=== PATIENT | female | born 1965 | race Caucasian/White ===

== ENCOUNTER → 2025-01-28 04:00 | Outpatient (REF) | payer MEDICARE, MEDICAID, SELFPAY ==
--- OUTSIDE RECORDS SUMMARY | 2025-01-28 04:12 | XMS RPT_ITS | CCD ---
Author Organization [facility] Care Team Providers Care Enterprise Systems Engineer Name Role Phone Tom Morocho Attending Unavailable Tom Morocho Attending Unavailable Encounters Encounter Date Encounter Type Care Provider Facility Start: 01-21-2025 ambulatory Tom REDDY Facil ity:[facility] Start: 01-17-2025 ambulatory Tom Johnstonhner BARRY Facil ity:[facility] Payers Date Payer Category Payer Self-pay Summary Purpose Family History No Family History Records Found Advance Directives No Advanced Directives Records Found Additional Source Comments INFORMATION SOURCE (unrecogn ized section and content) DATE CREATED AUTHOR 01/21/2025 [facility] FOR RECORDS PERTAINING TO PATIENTS WHO ARE OR HAVE BEEN ENROLLED IN A CHEMICAL DEPENDENCY/SUBSTANCEABUSE PROGRAM, SOME INFORMATION MAY BE OMITTED. This clinical summary was aggregated from multiple sources. Caution should be exercised in using it in the provision of clinical care. This summary normalizes information from multiple sources, and as a consequence, information in this document may materially change the coding, format and clinical context of patient data. In addition, data may be omitted in some cases. CLINICAL DECISIONS SHOULD BE BASED ON THE PRIMARY CLINICAL RECORDS. [facility] [employer] [facility]. provides no warranty or guarantee of the accuracy or completeness of information in this document.
[2025-01-28 10:38] LABS: Anion Gap 12 (5-15); BUN 25 mg/dL (4-19); BUN/Creat Ratio 9.9 RATIO (10-20); Calcium,Total 8.8 mg/dL (7.6-11.0); Carbon Dioxide 21.5 mmol/L (21.0-32.0); Chloride 91 mmol/L (98-108); Creatinine, Serum 2.53 mg/dL (0.70-1.20); EST Glomerular Filtration Rate 22 (>60); Glucose 92 mg/dL (70-99); Potassium 3.7 mmol/L (3.3-5.1); Sodium Level 125 mmol/L (133-145)
== END ==
LOC: OLS.ACW100 04:00
PROVIDERS: Referring Provider Family Medicine; Visit Provider Family Medicine
DX: S92.901D Unspecified fracture of right foot, subsequent encounter for fracture with routine healing (principal); E87.70 Fluid overload, unspecified; R29.6 Repeated falls; S62.92XD Unspecified fracture of left hand, subsequent encounter for fracture with routine healing
CPT/HCPCS: 36415; 80048

== ENCOUNTER → 2025-02-04 04:00 | Outpatient (REF) | payer MEDICARE, MEDICAID, SELFPAY ==
--- OUTSIDE RECORDS SUMMARY | 2025-02-04 04:27 | XMS RPT_ITS | CCD ---
Author Organization [facility] Care Team Providers Care Outside Sales Engineer Name Role Phone Tom Morocho Attending Unavailable Tom Morocho Attending Unavailable Tom Morocho Attending Unavailable Encounters Encounter Date Encounter Type Care Provider Facility Start: 01-28-2025 ambulatory Tom REDDY Facil ity:[facility] Start: 01-21-2025 ambulatory Tom REDDY Facil ity:[facility] Start: 01-17-2025 ambulatory Tom REDDY Facil ity:[facility] Payers Date Payer Category Payer Self-pay Summary Purpose Family History No Family History Records Found Advance Directives No Advanced Directives Records Found Additional Source Comments INFORMATION SOURCE (unrecogn ized section and content) DATE CREATED AUTHOR 01/29/2025 [facility] FOR RECORDS PERTAINING TO PATIENTS WHO [...] BE BASED ON THE PRIMARY CLINICAL RECORDS. [employer] provides no warranty or guarantee of the accuracy or completeness of information in this document.
[2025-02-04 09:04] LABS: Anion Gap 11 (5-15); BUN 24 mg/dL (4-19); BUN/Creat Ratio 9.8 RATIO (10-20); Calcium,Total 8.4 mg/dL (7.6-11.0); Carbon Dioxide 24.4 mmol/L (21.0-32.0); Chloride 89 mmol/L (98-108); Creatinine, Serum 2.41 mg/dL (0.70-1.20); EST Glomerular Filtration Rate 23 (>60); Glucose 90 mg/dL (70-99); Potassium 3.7 mmol/L (3.3-5.1); Sodium Level 124 mmol/L (133-145)
== END ==
LOC: OLS.ACW100 04:00
PROVIDERS: Referring Provider Family Medicine; Visit Provider Family Medicine
DX: S92.901D Unspecified fracture of right foot, subsequent encounter for fracture with routine healing (principal); S62.92XD Unspecified fracture of left hand, subsequent encounter for fracture with routine healing; E87.70 Fluid overload, unspecified; R29.6 Repeated falls
CPT/HCPCS: 36415; 80048

== ENCOUNTER → 2025-02-08 05:00 | Outpatient (REF) | payer MEDICARE, MEDICAID, SELFPAY ==
--- OUTSIDE RECORDS SUMMARY | 2025-02-08 03:58 | XMS RPT_ITS | CCD ---
Author Organization [facility] Care Team Providers Care Ladle Repairman Name Role Phone Tom Morocho Attending Unavailable Tom Morocho Attending Unavailable Tom Morocho Attending Unavailable Carlota REDDY, Tom Attending Unavailable Encounters Encounter Date Encounter Type Care Provider Facility Start: 02-04-2025 ambulatory Tom REDDY Facil ity:[facility] Start: 01-28-2025 ambulatory Tom REDDY Facil ity:[facility] Start: 01-21-2025 ambulatory Tom REDDY Facil ity:[facility] Start: 01-17-2025 ambulatory Tom REDDY Facil ity:[facility] Payers Date Payer Category Payer Self-pay Summary Purpose Family History No Family History Records Found Advance Directives No Advanced Directives Records Found Additional Source Comments INFORMATION SOURCE (unrecogn ized section and content) DATE CREATED AUTHOR 02/06/2025 [facility] FOR RECORDS PERTAINING TO PATIENTS WHO ARE [...] BE BASED ON THE PRIMARY CLINICAL RECORDS. [facility] [employer] provides no warranty or guarantee of the accuracy or completeness of information in this document.
== END ==
LOC: OLS.ACW100 05:00
PROVIDERS: Visit Provider Family Medicine
DX: S92.901D Unspecified fracture of right foot, subsequent encounter for fracture with routine healing (principal); E87.70 Fluid overload, unspecified; R29.6 Repeated falls; S62.92XD Unspecified fracture of left hand, subsequent encounter for fracture with routine healing
CPT/HCPCS: 36415; 84443

== ENCOUNTER → 2025-02-11 | Outpatient (REF) | payer MEDICARE, MEDICAID, SELFPAY ==
--- OUTSIDE RECORDS SUMMARY | 2025-02-11 04:26 | XMS RPT_ITS | CCD ---
Author Organization [facility] Care Team Providers Care Wash Oil Pump Operator Name Role Phone Tom Morocho Attending Unavailable Carlota REDDY, Tom Attending Unavailable Carlota REDDY, Tom Attending Unavailable Carlota REDDY, Tom Attending Unavailable Carlota REDDY, Tom Attending Unavailable Encounters Encounter Date Encounter Type Care Provider Facility Start: 02-08-2025 ambulatory Tom REDDY Facil ity:[facility] Start: 02-04-2025 ambulatory Tom REDDY Facil ity:[facility] Start: 01-28-2025 ambulatory Tom Van OLS Facil ity:[facility] Start: 01-21-2025 ambulatory Tom Van OLS Facil ity:[facility] Start: 01-17-2025 ambulatory Tom Van OLS Facil ity:[facility] Payers Date Payer Category Payer Self-pay Summary Purpose Family History No Family History Records Found Advance Directives No Advanced Directives Records Found Additional Source Comments INFORMATION SOURCE (unrecogn ized section and content) DATE CREATED AUTHOR 02/09/2025 [facility] FOR RECORDS PERTAINING TO PATIENTS WHO [...] BE BASED ON THE PRIMARY CLINICAL RECORDS. [facility] [employer] [facility]. provides no warranty or guarantee of the accuracy or completeness of information in this document.
[2025-02-11 09:38] LABS: Anion Gap 12 (5-15); BUN 20 mg/dL (4-19); BUN/Creat Ratio 7.5 RATIO (10-20); Calcium,Total 8.8 mg/dL (7.6-11.0); Carbon Dioxide 24.2 mmol/L (21.0-32.0); Chloride 88 mmol/L (98-108); Creatinine, Serum 2.64 mg/dL (0.70-1.20); EST Glomerular Filtration Rate 20 (>60); Glucose 90 mg/dL (70-99); Potassium 3.8 mmol/L (3.3-5.1); Sodium Level 125 mmol/L (133-145)
== END ==
LOC: OLS.ACW100 05:00
PROVIDERS: Visit Provider Family Medicine
DX: S92.901D Unspecified fracture of right foot, subsequent encounter for fracture with routine healing (principal); E87.70 Fluid overload, unspecified; R29.6 Repeated falls; S62.92XD Unspecified fracture of left hand, subsequent encounter for fracture with routine healing
CPT/HCPCS: 36415; 80048

== ENCOUNTER → 2025-02-18 04:00 | Outpatient (REF) | payer MEDICARE, MEDICAID, SELFPAY ==
[2025-02-18 08:50] LABS: Mucous, Urine 0 SEEN /hpf (<or=2+)
[2025-02-18 09:30] LABS: Albumin, Serum 3.5 g/dL (3.5-5.0); Anion Gap 11 (5-15); BUN 24 mg/dL (4-19); BUN/Creat Ratio 9.0 RATIO (10-20); Calcium,Total 8.9 mg/dL (7.6-11.0); Carbon Dioxide 24.1 mmol/L (21.0-32.0); Chloride 95 mmol/L (98-108); Glucose 83 mg/dL (70-99); Potassium 4.0 mmol/L (3.3-5.1)
[2025-02-18 09:39] LABS: Color, Urine Yellow (Yellow); Glucose, Dipstick Normal (Normal); Ketone-Dipstick Negative (Negative); Leukocyte Esterase-Dipstick 500 /ul (Negative); Nitrite-Dipstick Negative (Negative); Occult Blood-Urine 10 /ul (Negative); Protein-Dipstick 30 mg/dl (Negative); Specific Gravity, Urine 1.005 (1.002-1.030); Urine Bilirubin Dipstick Negative (Negative)
[2025-02-18 10:19] LABS: Red Blood Cells-Urine 0-5 SEEN /hpf (0-5); Squamous Epithelial Cells - UA 0-5 SEEN /hpf (5-10); Transitional Epithelial - Ur 0-5 SEEN /hpf (0-5)
[2025-02-18 11:42] LABS: Osmolality, Urine 108 mOsm/KG
[2025-02-18 11:42] LABS: Osmolality, Serum 281 mOsm/KG (275-295)
== END ==
LOC: OLS.ACW100 04:00
PROVIDERS: Referring Provider Family Medicine; Visit Provider Family Medicine
DX: S92.901D Unspecified fracture of right foot, subsequent encounter for fracture with routine healing (principal); E87.70 Fluid overload, unspecified; R29.6 Repeated falls; S62.92XD Unspecified fracture of left hand, subsequent encounter for fracture with routine healing
CPT/HCPCS: 36415; 80069; 81001; 83930; 83935; 87077; 87086; 87088; 87186

== ENCOUNTER → 2025-02-25 05:00 | Outpatient (REF) | payer MEDICARE, MEDICAID, SELFPAY ==
--- OUTSIDE RECORDS SUMMARY | 2025-02-25 04:51 | XMS RPT_ITS | CCD ---
Author Organization [facility] Care Team Providers Care Single Corner Cutter Name Role Phone Tom Morocho Attending Unavailable Carlota OLS, Tom Attending Unavailable Carlota OLS, Tom Attending Unavailable Carlota OLS, Tom Attending Unavailable Carlota OLS, Tom Attending Unavailable Carlota OLS, Tom Attending Unavailable Carlota REDDY, Tom Attending Unavailable Encounters Encounter Date Encounter Type Care Provider Facility Start: 02-18-2025 ambulatory Tom Carlota OLS Facil ity:[facility] Start: 2025 ambulatory Tom Carlota OLS Facil ity:[facility] Start: 02-08-2025 ambulatory Tom Hajier OLS Facil ity:[facility] Start: 02-04-2025 ambulatory Tom Carlota OLS Facil ity:[facility] Start: 01-28-2025 ambulatory Tom Carlota OLS Facil ity:[facility] Start: 01-21-2025 ambulatory Tom Carlota OLS Facil ity:[facility] Start: 01-17-2025 ambulatory Tom Carlota OLS Facil ity:[facility] Payers Date Payer Category Payer Self-pay Summary Purpose Family History No Family History Records Found Advance Directives No Advanced Directives Records Found Additional Source Comments INFORMATION SOURCE (unrecogn ized section and content) DATE CREATED AUTHOR 02/21/2025 [facility] FOR RECORDS PERTAINING TO PATIENTS [...] BE BASED ON THE PRIMARY CLINICAL RECORDS. [facility] [employer] [facility]. provides no warranty or guarantee of the accuracy or completeness of information in this document.
[2025-02-25 09:51] LABS: Anion Gap 12 (5-15); BUN 24 mg/dL (4-19); BUN/Creat Ratio 9.2 RATIO (10-20); Calcium,Total 8.4 mg/dL (7.6-11.0); Carbon Dioxide 19.9 mmol/L (21.0-32.0); Chloride 93 mmol/L (98-108); Glucose 79 mg/dL (70-99); Potassium 4.1 mmol/L (3.3-5.1)
== END ==
LOC: OLS.ACW100 05:00
PROVIDERS: Visit Provider Family Medicine
DX: S92.901D Unspecified fracture of right foot, subsequent encounter for fracture with routine healing (principal); E87.70 Fluid overload, unspecified; R29.6 Repeated falls; S62.92XD Unspecified fracture of left hand, subsequent encounter for fracture with routine healing
CPT/HCPCS: 36415; 80048

== ENCOUNTER → 2025-03-20 05:00 | Outpatient (REF) | payer MEDICARE, MEDICAID, SELFPAY ==
--- OUTSIDE RECORDS SUMMARY | 2025-03-20 04:31 | XMS RPT_ITS | CCD ---
Author Organization [facility] Care Team Providers Care Pot Pusher Name Role Phone LISHNEVSKI, EDITH Referring Unavailable LISHNEVSKI, EDITH Primary Care Unavailable Miquel Bhat Attending Unavailable LISHNEVSKI, EDITH Referring Unavailable LISHNEVSKI, EDITH Primary Care Unavailable NEVILLE DELA CRUZ Attending Unavailable Ivan Chacon Attending Unavailable LISHNEVSKI, EDITH Referring Unavailable LISHNEVSKI, EDITH Primary Care Unavailable Fran Bowers Attending Unavailable LISHNEVSKI, EDITH Referring Unavailable LISHNEVSKI, EDITH Primary Care Unavailable Lishnevski, Edith Primary Care Provider Lishnevski, Edith Primary Care Provider Stan BLANCHARD, Edith Primary Care Provider [phone] Lishnkathleenski, Edith Primary Care Provider Saurabh Esposito MD Unavailable Ewelina Pruett Unavailable Nick Green MD Unavailable [phone] Dario Verduzco MD Unavailable Marquis BLANCHARD, Shania Warren Unavailable [phone] Stan BLANCHARD, Edith Primary Care Provider Lissindyski, Edith Attending Unavailable PROVIDER, UNKNOWN Referring Unavailable Lishnevski, Edith Primary Care Unavailable Lishnevski, Edith Primary Care Unavailable Lishnevski, Edith Attending Unavailable PROVIDER, UNKNOWN Referring Unavailable PROVIDER, UNKNOWN Referring Unavailable PERFECTO HOLLINS Attending Unavailable Lishnevski, Edith Primary Care Unavailable Lishnevski, Edith Attending Unavailable PROVIDER, UNKNOWN Referring Unavailable Lishnevski, Edith Primary Care Unavailable PROVIDER, UNKNOWN Referring Unavailable Fran Bowers Attending Unavailable Lishnevski, Edith Primary Care Unavailable Lishnevski, Edith Primary Care Unavailable SHANIA CHO Attending Unavailable PROVIDER, UNKNOWN Referring Unavailable Lishnevski, Edith Primary Care Unavailable Fran Bowers Attending Unavailable PROVIDER, UNKNOWN Referring Unavailable Lishnevski, Edith Primary Care Unavailable PERFECTO HOLLINS Attending Unavailable PROVIDER, UNKNOWN Referring Unavailable Lishnevski, Edith Primary Care Unavailable Lishnevski, Edith Attending Unavailable PROVIDER, UNKNOWN Referring Unavailable Gisselhnenrique BLANCHARD, Edith Primary Care Provider Stan BLANCHARD, Edith Primary Care Provider Ewelina Pruett Unavailable Nick Green MD Unavailable Dax BLANCHARD, Dario Robbins Unavailable [phone] Shania Cho MD Unavailable [phone] Nick Green MD Unavailable Stan BLANCHARD, Edith Primary Care Provider Stan BLANCHARD, Edith Primary Care Provider Stan BLANCHARD, Edith Primary Care Provider Nick Green MD Unavailable Nick Green MD Unavailable Meño BLANCHARD, Familia Cason Unavailable Katarina De Souza RN Unavailable UnavailMary Boykin Attending Provider UnavailMary Boykin Referring Provider UnavailJAVAD Johnson Attending Unavailable LISHNEVSKI, EDITH Primary Care Unavailable SARAH GUTIERREZ Attending Unavailable FROY MORALES Consulting Unavailab ESTEPHANIA Guthrie Admitting Unavailable LISHNEVSKI, EDITH Primary Care Unavailable LISHNEVSKI, EDITH Primary Care Unavailable LISHNEVSKI, EDITH Attending Unavailable JESS PATTON Attending Unavailable LISHNEVSKI, EDITH Primary Care Unavailable PAT PRASAD Attending Unavailable LISHNEVSKI, EDITH Primary Care Unavailable LISHNEVSKI, EDITH Primary Care Unavailable PATTON, JESS Attending Unavailable LISHNEVSKI, EDITH Primary Care Unavailable DIAMANTE SCHROEDER Attending Unavailable MARIANN BYRNES Admitting Unavailable LISHNEVSKI, EDITH Primary Care Unavailable LISHNEVSKI, EDITH Primary Care Unavailable FRAN BOWERS Attending Unavailable LISHNEVSKI, EDITH Primary Care Unavailable PATTON, JESS Referring Unavailable LISHNEVSKI, EDITH Primary Care Unavailable PATTON, JESS Referring Unavailable LISHNEVSKI, EDITH Primary Care Unavailable SARAH DURAN Referring Unavailable KARTHIK HAYESA Attending Unavailable JUDE CHASE Admitting Unavailable LISHNEVSKI, EDITH Primary Care Unavailable ARSLAN KIRKLAND Attending Unavailable LISHNEVSKI, EDITH Primary Care Unavailable LARRY HAYESRISSHERLEYA Attending Unavailable CLARA WYATT Admitting Unavailable LISHNEVSKI, EDITH Primary Care Unavailable BILL HERBERT Admitting Unavailable BILL HERBERT Attending Unavailable MARY GAMBOA Consulting Unavailable LISHNEVSKI, EDITH Primary Care Unavailable JORGE ROTH Attending Unavailable LISHNEVSKI, EDITH Primary Care Unavailable LISHNEVSKI, EDITH Primary Care Unavailable CARLOTA PHILLIPS Referring Unavailable FAMILIA JERONIMO Attending Unavailable LISHNEVSKI, EDITH Primary Care Unavailable EVA ANDRE Referring Unavailable EAV ANDRE Attending Unavailable ARSLAN KIRKLAND Attending Unavailable LISHNEVSKI, EDITH Primary Care Unavailable Mary Morocho Attending Unavailable Mary Morocho Attending Unavailable Mary Morocho Referring Unavailable Mary Morocho Attending Unavailable Mary Morocho Attending Unavailable Mary Morocho Attending Unavailable Mary Morocho Attending Unavailable Mary Morocho Attending Unavailable Mary Morocho Referring Unavailable Mary Morocho Referring Unavailable Mary Morocho Attending Unavailable Allergies Allergy Classification Reported Allergen(s) Allergy Type Date of Onset Reaction(s) Facility Anticholinergics (2 sources) Benztropine Drug Allergy 03-20-20 [facility] diphenhydrAMINE (2 sources) diphenhydrAMINE Drug Allergy 03-20-20 [facility] (20 sources) Antihistamines, Chlorpheniramine-Ty pe Propensity to adverse reactions to drug 03-20-20 15 [facility], [place] (20 sources) Other Propensity to adverse reactions 03-20-20 15 Other (See Comments) [place], [place] (20 sources) Benztropine Drug Allergy 08-18-19 13 [facility] (20 sources) diphenhydrAMINE Drug Allergy 08-18-19 13 [facility] Work Phone: (20 sources) NSAIDs Propensity to adverse reactions to drug 03-20-20 20 [facility] Work Phone: (10 sources) Chlorpheniramine / Pseudoephedrine Drug Allergy 02-02-20 16 Other: See Comments [facility] (20 sources) venlafaxine Drug Allergy 06-28-20 24 Hives [facility] (13 sources) Propylamine derivative antihistamine Drug Intolerance 03-20-20 15 [facility] NEGATED: Highlighted row has been ruled out!Unclassified (10 sources) Other Propensity to adverse reactions 03-20-20 15 Other (See Comments) [facility] Medications Current Medications Medication Drug Class(es) Dates Sig (Normalized) Sig (Original) albuterol sulfate HFA (PROAIR HFA) 108 (90 Base) MCG/ACT inhaler (1 source) Start: 06-22-2017 take 2 puff(s) by inhalation every six hours as needed for wheezing albuterol sulfate HFA (PROAIR HFA) 108 (90 Base) MCG/ACT inhaler Indications: Lung infiltrate on CT , Cough Inhale 2 puffs into the lungs every 6 hours as needed for Wheezing 1 Inhaler 3 06/22/2017 Active amLODIPine 5 mg oral tablet (20 sources) Dihydropyridine Calcium Channel Tomasa Start: 05-10-2023 End: 08-10-2024 take 1 tablet by mouth once daily amLODIPine (Norvasc) 5 MG tablet take 1 tablet by mouth once daily 30 tablet 03/08/2024 Active Start: 03-24-2023 End: 03-23-2023 amLODIPine (Norvasc) tablet 5 mg Start: 03-24-2023 End: 03-23-2023 amLODIPine (Norvasc) tablet 5 mg Start: 03-23-2023 End: 03-23-2023 amLODIPine (Norvasc) tablet 10 mg Start: 03-22-2023 End: 03-22-2023 amLODIPine (Norvasc) tablet 5 mg Start: 09-01-2021 take 1 tablet by diane th once daily amLODIPine (NORVASC) 5 MG tablet Indications: Hyperkalemia TAKE 1 TABLET BY MOUTH DAILY 90 tablet 0 09/01/2021 Active Start: 12-19-2020 take 1 tablet by diane th once daily amLODIPine (NORVASC) 5 MG tablet Indications: Hyperkalemia TAKE 1 TABLET BY MOUTH DAILY 30 tablet 3 12/19/2020 Active Start: 06-09-2020 take 1 tablet by diane th once daily amLODIPine (NORVASC) 5 MG tablet Indications: Hyperkalemia TAKE 1 TABLET BY MOUTH EVERY DAY 30 tablet 3 06/09/2020 Active Start: 01-31-2020 take 1 tablet by diane th once daily amLODIPine (NORVASC) 5 MG tablet Indications: Hyperkalemia TAKE 1 TABLET BY MOUTH EVERY DAY 30 tablet 3 01/31/2020 Active Start: 11-16-2019 take 1 tablet by diane th once daily in the morning amLODIPine (NORVASC) 5 MG tablet Indications: Hyperkalemia take 1 tablet by mouth every morning 30 tablet 3 11/16/2019 Active Start: 03-26-2019 take 1 tablet by diane th once daily amLODIPine (NORVASC) 5 MG tablet Indications: Hyperkalemia Take 1 tablet by mouth daily 30 tablet 3 03/26/2019 Active aspirin 81 mg delayed release oral tablet (4 sources) Platelet Aggregation Inhibitor, Nonsteroidal Anti-inflammatory Drug take 1 tablet by mouth in the morning aspirin 81 MG EC tablet Take 81 mg by mouth in the morning. 0 Active Calcium Carbonate / Cholecalciferol (17 sources) Vitamin D Start: 10-28-19 take 1 tablet by mouth once, then take 1 tablet by mouth once calcium carbonate-vitam in D (CALTRATE) 600-400 MG-UNIT TABS per tab TAKE (1) TABLET BY MOUTH AT 8AM AND 1 TABLET AT 8PM 60 tablet 11 10/27/2018 Active Start: 01-24-2018 calcium carbon ate 600 mg-cholecalciferol 400 units 600 mg(1,500mg) -400 unit tab TAKE ONE TABLET AT 8AM & 8PM 60 tablet 0 01/24/2018 Active Comment on above: TAKE ONE TABLET AT 8 AM & 8PM clonazePAM 0.5 mg oral tablet (20 sources) Benzodiazepine Start: 01-15-2025 take 0.5 mg by mouth once 0.5 mg, Oral, Once, On 01/15/25 at 0900, For 1 dose Start: 12-29-2024 take 0.5 mg by mouth once 0.5 mg, Oral, Once, On 12/29/24 at 0250, For 1 dose Start: 09-14-2024 End: 03-15-2025 take 1 tablet by mouth twice daily as needed for anxiety clonazePAM (KlonoPIN) 0.5 MG tablet Indications: schizoaffectvie disorder Take 1 tablet (0.5 mg) by mouth 2 times daily as needed for anxiety. 60 tablet 1 09/14/2024 03/15/2025 Discontinued (Stop taking at discharge) Start: 06-18-2024 End: 08-17-2024 take 1 tablet by mouth twice daily as needed for anxiety clonazePAM (KlonoPIN) 0.5 MG tablet Indications: schizoaffectvie disorder Take 1 tablet (0.5 mg) by mouth 2 times daily as needed for anxiety for up to 3 days. 5 tablet 1 08/05/2024 Active Start: 12-16-2023 End: 02-14-2024 clonazePAM (KlonoPIN) 0.5 MG tablet Indications: schizoaffectvie disorder Take 1 tablet (0.5 mg) by mouth 2 times daily as needed for anxiety. Do not start before December 16, 2023. 60 tablet 1 12/16/2023 Active Start: 08-22-2023 End: 10-21-2023 take 1 tablet by mouth twice daily as needed for anxiety clonazePAM (KlonoPIN) 0.5 MG tablet Indications: schizoaffectvie disorder Take 1 tablet (0.5 mg) by mouth 2 times daily as needed for anxiety. 60 tablet 1 08/22/2023 Active Start: 05-06-2023 End: 08-19-2023 take 1 tablet by mouth twice daily as needed for anxiety clonazePAM (KlonoPIN) 0.5 MG tablet Indications: schizoaffectvie disorder Take 1 tablet (0.5 mg) by mouth 2 times daily as needed for anxiety. 60 tablet 1 06/20/2023 08/19/2023 Active Start: 03-20-2023 take 0.5 tablet by m out three times daily as needed for anxiety clonazePAM (KlonoPIN) 0.5 MG tablet Indications: Chronic schizoaffective disorder (HCC) Take 0.5 tablets (0.25 mg) by mouth 3 times daily as needed for anxiety for up to 3 days. 3 tablet 0 03/20/2023 Active Start: 03-17-2023 End: 03-23-2023 clonazePAM (KlonoPIN) tablet 0.25 mg Start: 01-28-2023 End: 04-30-2023 take 1 tablet by mouth twice daily as needed for anxiety clonazePAM (KlonoPIN) 0.5 MG tablet Indications: Bipolar affective disorder, remission status unspecified (HCC) , Panic disorder with agoraphobia Take 1 tablet (0.5 mg) by mouth 2 times daily as needed for anxiety. 60 tablet 1 03/01/2023 03/23/2023 Discontinued (Stop taking at discharge) Start: 11-19-2022 End: 01-18-2023 take 1 tablet by mouth twice daily as needed for anxiety clonazePAM (KlonoPIN) 0.5 MG tablet Indications: Bipolar affective disorder, remission status unspecified (HCC) , Panic disorder with agoraphobia Take 1 tablet (0.5 mg) by mouth 2 times daily as needed for anxiety. 60 tablet 1 11/19/2022 01/18/2023 Active Start: 07-23-2022 take 1 tablet by diane twice daily as needed for anxiety clonazePAM (KlonoPIN) 0.5 MG tablet Indications: Bipolar affective disorder, remission status unspecified (HCC) , Panic disorder with agoraphobia TAKE 1 TABLET BY MOUTH TWICE DAILY NEEDED FOR ANXIETY 60 tablet 1 07/23/2022 Active Start: 04-21-2022 End: 06-20-2022 take 1 tablet by mouth twice daily as needed for anxiety clonazePAM (KLONOPIN) 0.5 MG tablet Indications: Chronic schizoaffective disorder (HCC) , Anxiety TAKE 1 TABLET BY MOUTH TWICE DAILY NEEDED FOR ANXIETY 60 tablet 1 04/21/2022 06/20/2022 Active Start: 02-02-2022 End: 04-03-2022 take 1 tablet by mouth twice daily as needed for anxiety clonazePAM (KLONOPIN) 0.5 MG tablet Indications: Chronic schizoaffective disorder (HCC) , Anxiety TAKE 1 TABLET BY MOUTH TWICE DAILY NEEDED FOR ANXIETY FOR UP TO 60 DAYS 60 tablet 1 02/02/2022 04/03/2022 Active Start: 09-16-2021 End: 11-15-2021 take 1 tablet by mouth twice daily as needed for anxiety clonazePAM (KLONOPIN) 0.5 MG tablet Indications: Chronic schizoaffective disorder (HCC) , Anxiety Take 1 tablet by mouth 2 times daily as needed for Anxiety for up to 60 days. 60 tablet 1 09/16/2021 11/15/2021 Active Start: 02-12-2021 End: 04-13-2021 take 1 tablet by mouth twice daily as needed for anxiety clonazePAM (KLONOPIN) 0.5 MG tablet Indications: Anxiety , Chronic schizoaffective disorder (HCC) Take 1 tablet by mouth 2 times daily as needed for Anxiety for up to 60 days. 60 tablet 1 02/12/2021 04/13/2021 Active Start: 11-27-2020 End: 01-26-2021 take 1 tablet by mouth twice daily as needed for anxiety clonazePAM (KLONOPIN) 0.5 MG tablet Indications: Anxiety , Chronic schizoaffective disorder (HCC) TAKE ONE (1) TABLET BY MOUTH TWICE DAILY NEEDED FOR ANXIETY 60 tablet 1 11/27/2020 01/26/2021 Active Start: 10-12-2019 End: 08-18-2020 take 1 tablet by mouth twice daily as needed for anxiety clonazePAM (KLONOPIN) 0.5 MG tablet Indications: Anxiety , Chronic schizoaffective disorder (HCC) Take 1 tablet by mouth 2 times daily as needed for Anxiety for up to 60 days. 60 tablet 1 06/19/2020 08/18/2020 Active Start: 03-26-2019 End: 09-03-2019 take 1 tablet by mouth twice daily for anxiety clonazePAM (KLONOPIN) 0.5 MG tablet Indications: Anxiety , Chronic schizoaffective disorder (HCC) take 1 tablet by mouth twice a day if needed for anxiety 60 tablet 1 07/05/2019 09/03/2019 Active Comment on above: Take 0.5 mg by mouth twice daily as needed. docusate sodium 50 mg / sennosides, prison 8.6 mg oral tablet (14 sources) Start: 03-10-2025 End: 03-15-2026 take 2 tablets by mouth every twenty-four hours as needed for constipation senna-docusate sodium (Senokot-S) 8.6-50 MG tablet Take 2 tablets by mouth Daily as needed for constipation. 03/15/2025 03/15/2026 Active Start: 01-11-2025 End: 01-25-2025 take 2 tablets by mouth twice daily senna-docusate sodium (Senokot-S) 8.6-50 MG tablet Take 2 tablets by mouth 2 times daily for 10 days. 40 tablet 01/15/2025 01/25/2025 Active Start: 01-02-2025 End: 01-10-2025 take 2 tablets by mouth once daily 2 tablet, Oral, Daily, First dose on Tue01/02/25 at 1300 Start: 08-10-2024 End: 08-10-2024 take 1 tablet by mouth twice daily as needed for constipation 1 tablet, Oral, 2 times daily PRN, constipation, Starting on Tue08/10/24 at 0853 Start: 03-17-2023 End: 03-23-2023 senna-docusate sodium (Senok ot-S) 8.6-50 MG tablet 2 tablet epoetin molly-epbx (Retacrit) 18165 UNIT/ML injection (20 sources) epoetin molly-epb x (Retacrit) 21993 UNIT/ML injection Inject 10,000 Units under the skin. Suspended epoetin molly-epb x (Retacrit) 17418 UNIT/ML injection Inject 10,000 Units under the skin. Active ferrous sulfate 325 mg oral tablet (20 sources) Start: 01-01-2025 End: 02-15-2025 take 1 tablet by mouth once daily at breakfast ferrous sulfate 325 (65 Fe) MG tablet Take 1 tablet (325 mg) by mouth daily (with breakfast). 30 tablet 01/16/2025 02/15/2025 Active Start: 05-18-2019 take 1 tablet by diane th once daily ferrous sulfate 325 (65 Fe) MG EC tablet TAKE 1 TABLET BY MOUTH EVERY DAY AT NOON 30 tablet 11 05/18/2019 Active Start: 10-27-2018 take 1 tablet by diane th once daily ferrous sulfate 325 (65 Fe) MG EC tablet TAKE 1 TABLET BY MOUTH EVERY DAY AT NOON 30 tablet 11 10/27/2018 Active Start: 01-24-2018 ferrous sulfat e 325 mg (65 mg iron) tablet TAKE ONE TABLET AT 12PM 30 tablet 0 01/24/2018 Active Comment on above: TAKE ONE TABLET AT 1 2PM guaiFENesin 20 mg/ml oral solution (6 sources) Start: 03-15-2025 End: 03-25-2025 take 200 mg by mouth every four hours as needed for cough guaiFENesin (Robitussin) 100 MG/5ML liquid Take 10 mL (200 mg) by mouth every 4 hours as needed for cough for up to 10 days. 03/15/2025 03/25/2025 Active Start: 03-14-2025 End: 03-15-2025 take 200 mg by mouth every four hours as needed for cough 200 mg, Oral, Every 4 hours PRN, cough, Starting on Kayli 03/14/25 at 1538 Start: 08-06-2024 End: 08-10-2024 take 200 mg by mouth every four hours as needed for cough 200 mg, Oral, Every 4 hours PRN, cough, Starting on 08/06/24 at 2058 heparin 1 unit/mL (1 source) inject 1 [IU] by subcutaneous injection every twelve hours heparin 1 unit/mL SubQ Q12 hours Active hydroCHLOROthiazide 25 mg / triamterene 37.5 mg oral capsule (16 sources) Potassium-sparin g Diuretic, Thiazide Diuretic Start: 11-15-19 take 1 capsule by mouth twice daily triamterene-hy drochlorothiaz kathy (DYAZIDE) 37.5-25 MG per capsule Take 1 capsule by mouth 2 times daily 60 capsule 0 11/14/2018 Active Start: 11-25-2017 triamterene-hy drochlorothiazide 37.5-25 mg per capsule 0 11/25/2017 Active hydrOXYzine pamoate 25 mg oral capsule (4 sources) Antihistamine Start: 03-07-2025 End: 03-25-2025 take 1 capsule by mouth every six hours as needed for anxiety hydrOXYzine pamoate (Vistaril) 25 MG capsule Take 1 capsule (25 mg) by mouth every 6 hours as needed for anxiety for up to 10 days. 03/15/2025 03/25/2025 Active Incontinence Supply Disposable (Depend Pant Extra Large) misc (20 sources) Start: 06-22-2023 End: 06-21-2024 Incontinence Supply Disposable (Depend Pant Extra Large) misc Indications: Urge incontinence of urine 1 each in the morning and 1 each at noon and 1 each in the evening and 1 each before bedtime. 120 each 11 06/22/2023 06/21/2024 Active Start: 02-23-2023 End: 06-22-2023 Incontinence Supply Disposab le (Depend Pant Extra Large) misc Indications: Urge incontinence of urine 1 each in the morning and 1 each at noon and 1 each in the evening and 1 each before bedtime. 120 each 02/23/2023 06/22/2023 Discontinued (Reorder) Start: 02-23-2023 End: 02-23-2024 Incontinence Supply Disposab le (Depend Pant Extra Large) misc Indications: Urge incontinence of urine 1 each in the morning and 1 each at noon and 1 each in the evening and 1 each before bedtime. 120 each 02/23/2023 02/23/2024 Suspended Start: 02-23-2023 End: 02-23-2024 Incontinence Supply Disposab le (Depend Pant Extra Large) misc Indications: Urge incontinence of urine 1 each in the morning and 1 each at noon and 1 each in the evening and 1 each before bedtime. 120 each 02/23/2023 02/23/2024 Active lactobacillus acidophilus 16 mg oral capsule (20 sources) Start: 06-18-2020 take 1 capsule by mouth once daily Lactobacillus (ACIDOPHILUS) CAPS capsule TAKE 1 CAPSULE BY MOUTH EVERY DAY AT 12PM 30 capsule 10 06/18/2020 Active Start: 07-30-2019 take 1 capsule by [facility] once daily Lactobacillus (ACIDOPHILUS) CAPS capsule TAKE 1 CAPSULE BY MOUTH EVERY DAY AT 12PM 30 capsule 07/30/2019 Active Start: 10-27-2018 take 1 capsule by mo ut once daily Lactobacillus (ACIDOPHILUS) CAPS capsule TAKE 1 CAPSULE BY MOUTH EVERY DAY AT 12PM 30 capsule 10/27/2018 Active metoprolol tartrate 75 mg oral tablet (20 sources) beta-Adrenergic Tomasa Start: 03-13-2025 End: 03-15-2026 take 1 tablet by mouth twice daily metoprolol tartrate (Lopressor) 75 MG tablet Take 1 tablet (75 mg) by mouth 2 times daily. 03/15/2025 03/15/2026 Active Start: 03-07-2025 End: 03-13-2025 take 100 mg by mouth twice daily 100 mg, Oral, 2 times daily, First dose on Kayli 03/07/25 at 0900 Start: 08-03-2024 End: 08-10-2024 take 100 mg by mouth twice daily 100 mg, Oral, 2 times daily, First dose on Tue08/03/24 at 2230 Start: 06-28-2024 End: 07-04-2024 take 100 mg by mouth twice daily 100 mg, Oral, 2 times daily, First dose on Kayli 06/28/24 at 2100 Start: 05-10-2023 End: 03-15-2025 take 1 tablet by mouth twice daily metoprolol tartrate (Lopressor) 100 MG tablet Take 1 tablet (100 mg) by mouth 2 times daily. 60 tablet 3 11/21/2023 03/15/2025 Discontinued (Stop taking at discharge) Start: 03-17-2023 End: 03-23-2023 take 100 mg by mouth twice daily 100 mg, Oral, 2 times daily, First dose on Kayli 03/17/23 at 0900 Hold for HR < 60 Start: 06-15-2022 End: 12-08-2022 take 1 tablet by mouth in the morning metoprolol tartrate (Lopressor) 100 MG tablet take 1 tablet by mouth IN THE MORNING AND 1 TABLET BEFORE BEDTIME 180 tablet 0 09/09/2022 Active Start: 03-15-2022 metoprolol tar trate (LOPRESSOR) 50 MG tablet Indications: Essential hypertension , Acquired hypothyroidism TAKE TWO TABLETS IN THE MORNING AND TWO EVENING 120 tablet 3 03/15/2022 Active Start: 12-31-2019 metoprolol tar trate (LOPRESSOR) 50 MG tablet Indications: Essential hypertension , Acquired hypothyroidism TAKE TWO TABLETS IN THE MORNING AND EVENING 120 tablet 3 12/31/2019 Active Start: 11-30-2017 metoprolol tar trate (LOPRESSOR) 50 MG tablet Indications: Essential hypertension TAKE TWO TABLETS IN THE MORNING AND EVENING 120 tablet 3 11/30/2017 Active Start: 10-21-2017 take 1 tablet by diane th every twelve hours metoprolol tartrate, short acting, (LOPRESSOR) 50 mg tablet Take 1 tablet by mouth every 12 hours. 0 10/21/2017 Active Comment on above: Take 1 tablet by diane th every 12 hours. miconazole nitrate 0.02 mg/mg topical powder (8 sources) Azole Antifungal Start: 12-30-2024 End: 01-15-2025 miconazole (Micotin) 2 % powder Apply topically 2 times daily. 100 g 01/15/2025 Active nystatin 100 unt/mg topical powder (20 sources) Polyene Antifungal Start: 12-25-2024 nystatin (Mycostatin) 294617 UNIT/GM powder Apply topically 2 times daily. Apply to groin 60 g 12/25/2024 Active Start: 08-29-2020 nystatin (MYCO STATIN) 540088 UNIT/GM ointment APPLY TOPICALLY TO AFFECTED AREA TWICE DAILY 15 g 3 08/29/2020 Active Start: 08-27-2019 nystatin (MYCO STATIN) 983299 UNIT/GM ointment APPLY TOPICALLY TO AFFECTED AREA TWICE DAILY 15 g 3 08/27/2019 Active Start: 12-04-2018 nystatin (MYCO STATIN) 802688 UNIT/GM ointment Apply topically 2 times daily. LARGE TUBE 1 Tube 2 12/04/2018 Active omeprazole 40 mg delayed release oral capsule (20 sources) Proton Pump Inhibitor Start: 08-17-2022 End: 09-19-2023 take 1 capsule by mouth once daily before breakfast omeprazole (PriLOSEC) [address] capsule Take 1 capsule (40 mg) by mouth every morning (before breakfast). Do not crush or chew. 90 capsule 1 09/19/2023 Active Start: 02-01-2022 take 1 capsule by mo uth once daily before breakfast omeprazole (PRILOSEC) 40 MG delayed release capsule TAKE 1 CAPSULE BY MOUTH EVERY MORNING BEFORE BREAKFAST 30 capsule 3 02/01/2022 Active Start: 07-03-2021 take 1 capsule by mo uth once daily before breakfast omeprazole (PRILOSEC) 40 MG delayed release capsule TAKE 1 CAPSULE BY MOUTH EVERY MORNING BEFORE BREAKFAST 30 capsule 3 07/03/2021 Active Start: 11-05-2020 take 1 capsule by mo uth before breakfast omeprazole (PRILOSEC) 40 MG delayed release capsule TAKE (1) CAPSULE BY MOUTH EACH MORNING BEFORE BREAKFAST 30 capsule 3 11/05/2020 Active Start: 04-22-2020 take 1 capsule by mo uth once daily before breakfast omeprazole (PRILOSEC) 40 MG delayed release capsule TAKE 1 CAPSULE BY MOUTH EVERY MORNING BEFORE BREAKFAST 30 capsule 3 04/22/2020 Active Start: 02-25-2020 take 1 capsule by mo uth once daily before breakfast omeprazole (PRILOSEC) 40 MG delayed release capsule TAKE 1 CAPSULE BY MOUTH EVERY MORNING BEFORE BREAKFAST 30 capsule 1 02/25/2020 Active Start: 01-09-2020 take 1 capsule by mo uth once daily before breakfast omeprazole (PRILOSEC) 40 MG delayed release capsule Take 1 capsule by mouth every morning (before breakfast) 30 capsule 2 01/09/2020 Active Start: 09-03-2019 take 1 capsule by mo uth once daily omeprazole (PRILOSEC) 20 MG delayed release capsule Take 1 capsule by mouth daily 30 capsule 3 09/03/2019 Active oxyCODONE hydrochloride 5 mg oral tablet (4 sources) Opioid Agonist Start: 01-15-2025 End: 01-20-2025 take 0.5 tablet by mouth every four hours as needed for pain oxyCODONE (Roxicodone) 5 MG immediate release tablet Indications: Pressure injury of left thigh, stage 3 (HCC) , Chronic bilateral low back pain with bilateral sciatica Take 0.5 tablets (2.5 mg) by mouth every 4 hours as needed for moderate pain (4-6) for up to 5 days. 15 tablet 01/15/2025 01/20/2025 Active Start: 01-08-2025 End: 01-15-2025 take 1 tablet by mouth every four hours as needed for pain oxyCODONE (Roxicodone) immediate release tablet 2.5 mg polyethylene glycol 3350 325857 mg / potassium chloride 2980 mg / sodium bicarbonate 6720 mg / sodium chloride 5840 mg / sodium sulfate 89899 mg powder for oral solution (7 sources) Osmotic Laxative Start: 02-07-2018 polyethylene glycol (GAVILYTE-C) 240 g solution Take 4,000 mLs by mouth as directed by GI physician. 4000 mL 0 02/07/2018 Active Polysaccharide iron complex (20 sources) Polysaccharide I talya Complex (IFEREX 150 PO) Take by mouth. Daily Rir-Mdg-Nnmwuj Suspended Polysaccharide I talya Complex (IFEREX 150 PO) Take by mouth. Daily Bma-Yqk-Eihiqu Active raNITIdine 150 mg oral tablet (7 sources) Histamine-2 Receptor Antagonist Start: 03-23-2019 take 1 tablet by mouth twice daily ranitidine (ZANTAC) 150 MG tablet TAKE ONE (1) TABLET BY MOUTH TWICE DAILY 60 tablet 3 03/23/2019 Active Selenium 200 MCG CAPS (20 sources) Start: 03-23-2022 take 1 capsule by mouth in the evening Selenium 200 MCG CAPS TAKE 1 CAPSULE BY MOUTH AT 8 PM 30 capsule 10 03/23/2022 Active Start: 05-06-2021 Selenium 200 M CG CAPS TAKE (1) CAPSULE BY MOUTH AT 8:00PM 30 capsule 10 05/06/2021 Active Start: 06-18-2020 Selenium 200 M CG CAPS TAKE 1 CAPSULE BY MOUTH AT 8PM 30 capsule 10 06/18/2020 Active Start: 07-30-2019 Selenium 200 M CG CAPS TAKE 1 CAPSULE BY MOUTH AT 8AM 30 capsule 11 07/30/2019 Active Start: 10-27-2018 Selenium 200 M CG CAPS TAKE (1) CAPSULE BY MOUTH AT 8AM 30 capsule 11 10/27/2018 Active sennosides, prison 8.6 mg oral tablet (14 sources) Start: 07-04-2024 End: 10-02-2024 take 2 tablets by mouth twice daily sennosides (Senokot) 8.6 MG tablet Take 2 tablets (17.2 mg) by mouth 2 times daily. 120 tablet 2 07/04/2024 10/02/2024 Active Start: 07-03-2024 End: 07-04-2024 take 1 tablet by mouth twice daily 17.2 mg (2 tablet), Oral, 2 times daily, First dose on Tue07/03/24 at 1300 Transparent Dressings (TEGAD ERM FIRST AID STYLE) MISC (8 sources) Start: 02-17-[address] essings (TEGADERM FIRST AID STYLE) MISC as directed place OVER BUTRANS PATCH if needed 0 02/17/2021 Active Completed/Discontinued Medications Medication Drug Class(es) Dates Sig (Normalized) Sig (Original) Acetaminophen (20 sources) Start: 03-07-2025 End: 03-15-2025 take 1 tablet by mouth every six hours as needed for pain and fever acetaminophen (Tylenol) tablet 650 mg Start: 01-01-2025 End: 01-15-2025 take 1 tablet by mouth every eight hours 1,000 mg, Oral, Every 8 hours, First dose on Tu01/01/25 at 0900, Maximum dose of acetaminophen is 4000 mg from all sources in 24 hours. Start: 12-30-2024 End: 12-30-2024 1,000 mg, Oral, Once, On 12/30/24 at 1150, For 1 dose, Maximum dose of acetaminophen is 4000 mg from all sources in 24 hours. Start: 12-28-2024 End: 12-28-2024 1,000 mg, Oral, Once, On Tue12/28/24 at 2050, For 1 dose, Maximum dose of acetaminophen is 4000 mg from all sources in 24 hours. Start: 08-04-2024 End: 08-10-2024 650 mg, Oral, 3 times daily, First dose on 08/04/24 at 1015, Maximum dose of acetaminophen is 4000 mg from all sources in 24 hours. Start: 06-30-2024 End: 07-04-2024 take 1 tablet by mouth every six hours as needed for pain and pain 500 mg, Oral, Every 6 hours PRN, mild pain (1-3), moderate pain (4-6), Starting on 06/30/24 at 0434, Maximum dose of acetaminophen is 4000 mg from all sources in 24 hours. Start: 06-28-2024 End: 07-04-2024 take 650 mg rectal route every six hours as needed for pain and fever Start: 03-17-2023 End: 03-23-2023 take 1 tablet by mouth every six hours as needed for pain and fever acetaminophen (Tylenol) tablet 650 mg Start: 10-12-2017 take 2 tablets by mo uth three times daily acetaminophen (TYLENOL) 500 MG tablet Take 2 tablets by mouth 3 times daily 120 tablet 3 10/12/2017 Active Start: 09-09-2017 take 2 tablets by mo uth every six hours as needed acetaminophen (TYLENOL) 325 mg tablet Take 2 tablets by mouth every 6 hours as needed. 0 09/09/2017 Active acetaminophen (T ylenol) 325 MG tablet Take by mouth. Active Comment on above: Take 2 tablets by mo uth every 6 hours as needed. acetaminophen 325 mg / HYDROcodone bitartrate 5 mg oral tablet (6 sources) Opioid Agonist Start: 12-29-2024 End: 12-29-2024 1 tablet, Oral, Once, On 12/29/24 at 2100, For 1 dose, Maximum dose of acetaminophen is 4000 mg from all sources in 24 hours. Start: 08-04-2024 End: 08-10-2024 take 1 tablet by mouth every six hours as needed for pain HYDROcodone-acetaminophen ([place]) 5-325 MG tablet Indications: Failure to thrive in adult Take 1 tablet by mouth every 6 hours as needed for moderate pain (4-6) or severe pain (7-10) for up to 3 days. 10 tablet 08/05/2024 08/08/2024 20 ml albumin human, prison 250 mg/ml injection (2 sources) Human Serum Albumin Start: 08-03-2024 End: 08-03-2024 50 g, IntraVENous, at 180 mL/hr, Once, On 08/03/24 at 1215, For 1 dose [id number] 200 actuat albuterol 0.09 mg/actuat metered dose inhaler (20 sources) beta2-Adrenergi c Agonist Start: 06-22-2017 take 2 puff(s) by inhalation every six hours as needed for wheezing albuterol sulfate HFA (PROAIR HFA) 108 (90 Base) MCG/ACT inhaler Indications: Lung infiltrate on CT , Cough Inhale 2 puffs into the lungs every 6 hours as needed for Wheezing 1 Inhaler 3 06/22/2017 Active Start: 06-22-2017 take 2 puff(s) by in halation every six hours as needed for wheezing albuterol HFA (PROVENTIL HFA, VENTOLIN HFA) 90 mcg/actuation inhaler Inhale 2 Puffs as instructed every 6 hours as needed for Wheezing/Shortness of Breath. 0 10/21/2017 Active Comment on above: Inhale 2 Puffs as in structed every 6 hours as needed for Wheezing/Shortness of Breath. amoxicillin 500 mg oral capsule (11 sources) Penicillin-class Antibacterial Start: 025 End: 025 take 2 capsules by mouth every twelve hours amoxicillin (Amoxil) 500 MG capsule Take 2 capsules (1,000 mg) by mouth every 12 hours for 10 days. 40 capsule 12/25/2024 01/15/2025 Discontinued (Stop taking at discharge) biotin 1 mg chewable tablet (10 sources) Start: 017 take 1 capsule by mouth once daily biotin 1,000 mcg chew Take 1,000 mcg by mouth once daily. 28 capsule 0 01/12/2017 Active Comment on above: Take 1,000 mcg by [facility] once daily. bisacodyl 10 mg rectal suppository (20 sources) Stimulant Laxative Start: 025 End: take 10 mg rectal route once daily 10 mg, Rectal, Daily, First dose on Tue03/10/25 at 2130 Start: 01-07-2025 End: 01-15-2025 take 10 mg rectal route every twenty-four hours as needed for constipation 10 mg, Rectal, Daily PRN, constipation, Starting on Tue01/07/25 at 1515 168 hr buprenorphine 0.02 mg/hr transdermal system (20 sources) Partial Opioid Agonist Start: 03-12-2025 End: 03-15-2025 apply 1 dose transdermal route every week 1 patch, TransDERmal, Administer over 168 Hours, Weekly, First dose on Tue03/12/25 at 0900, Do not cut patch. Rotate Butrans application site weekly, applying to upper outer arm, upper chest, upper back, or side of chest. Do not reapply to same site within 3 weeks. May use first aid tape or semipermeable adhesive dressings to re-adhere if patch begins to pull away from skin. When removing, fold adhesive side of patch to itself before disposing, or per policy. Start: 12-31-2024 End: 01-15-2025 apply 1 dose transdermal route every week 1 patch, TransDERmal, Administer over 168 Hours, Weekly, First dose on Tue12/31/24 at 1600, Do not cut patch. Rotate Butrans application site weekly, applying to upper outer arm, upper chest, upper back, or side of chest. Do not reapply to same site within 3 weeks. May use first aid tape or semipermeable adhesive dressings to re-adhere if patch begins to pull away from skin. When removing, fold adhesive side of patch to itself before disposing, or per policy. Start: 06-28-2024 End: 07-04-2024 2 patch, TransDERmal, Admini ster over 168 Hours, Once, On Kayli 06/28/24 at 1945, For 1 dose, Do not cut patch. Rotate Butrans application site weekly, applying to upper outer arm, upper chest, upper back, or side of chest. Do not reapply to same site within 3 weeks. May use first aid tape or semipermeable adhesive dressings to re-adhere if patch begins to pull away from skin. When removing, fold adhesive side of patch to itself before disposing, or per policy. Start: 03-20-2023 End: 03-23-2023 apply 1 dose transdermal route every hour buprenorphine (Butrans) 20 MCG/HR 1 patch Start: 12-11-2021 End: 08-10-2024 buprenorphine (Butrans) 15 M CG/HR Place 20 patches on the skin Once. 12/11/2021 08/10/2024 Discontinued (Stop taking at discharge) Start: 12-11-2021 BUTRANS 15 MCG /HR PTWK place 1 patch TRANSDERMAL TO SKIN every 7 days for 28 DAYS 0 12/11/2021 Active Start: 02-17-2021 BUTRANS 10 MCG /HR PTWK apply 1 patch topically to CLEAN, DRY, AND INTACT SKIN REMOVE AND REPLACE every 7 days 0 02/17/2021 Active Start: 12-20-2018 buprenorphine (BUPRENEX) 7.5 MCG/HR PTWK apply 1 patch to SKIN every 7 days 0 12/20/2018 Active apply 1 dose transde rmal route every week buprenorphine (BUTRANS) 15 mcg/hour patch Apply 1 Patch as directed one time a week. 0 Active Comment on above: Apply 1 Patch as dir ected one time a week. cefTRIAXone (Rocephin) 1,000 mg in sodium chloride 0.9 % 50 mL IVPB Mini-Bag Plus (10 sources) Start: 08-06-2024 End: 08-08-2024 1,000 mg, IntraVENous, at 100 mL/hr, Administer over 30 Minutes, Every 24 hours, First dose on 08/06/24 at 0845, For 3 doses, Mini-Bag Plus bag, Suspected Indication (Select all that apply): Urinary Tract Infection Start: 06-29-2024 End: 07-01-2024 1,000 mg, IntraVENous, at 10 0 mL/hr, Administer over 30 Minutes, Every 24 hours, First dose on Tue06/29/24 at 1400, Mini-Bag Plus bag, Suspected Indication (Select all that apply): Urinary Tract Infection Start: 06-28-2024 End: 06-28-2024 1,000 mg, IntraVENous, at 10 0 mL/hr, Administer over 30 Minutes, Once, On Kayli 06/28/24 at 1325, For 1 dose, Mini-Bag Plus bag, Suspected Indication (Select all that apply): Urinary Tract Infection Start: 03-17-2023 End: 03-18-2023 cefTRIAXone (Rocephin) 1,000 mg in sodium chloride 0.9 % 50 mL IVPB Mini-Bag Plus Start: 03-16-2023 End: 03-16-2023 cefTRIAXone (Rocephin) 1,000 mg in sodium chloride 0.9 % 50 mL IVPB Mini-Bag Plus cephalexin 250 mg oral capsule (2 sources) Cephalosporin Antibacterial Start: 07-01-2024 End: 07-03-2024 take 500 mg by mouth three times daily 500 mg, Oral, 3 times daily, First dose on 07/01/24 at 1400, Suspected Indication (Select all that apply): Urinary Tract Infection cholecalciferol 0.025 mg oral tablet (14 sources) Vitamin D Start: 08-05-2024 End: 08-10-2024 take 1000 [IU] by mouth once daily 1,000 Units, Oral, Daily, First dose on 08/05/24 at 0900 Start: 07-04-2024 End: 07-04-2024 take 1000 [IU] by mouth once daily 1,000 Units, Oral, Daily, First dose on Tue07/04/24 at 0900 Start: 02-04-2020 take 1 capsule by [facility] once daily Cholecalciferol, Vitamin D3, (VITAMIN D) 25 mcg (1,000 unit) cap Indications: Vitamin D deficiency Take 1 capsule by mouth once daily. 90 capsule 0 02/04/2020 Active Comment on above: Take 1 capsule by [facility] once daily. DULoxetine 30 mg delayed release oral capsule (20 sources) Serotonin and Norepinephrine Reuptake Inhibitor Start: 03-07-2025 End: 03-15-2025 take 60 mg by mouth once daily 60 mg, Oral, Daily, First dose on Kayli 03/07/25 at 0900, Do not crush or chew. Start: 08-04-2024 End: 08-10-2024 take 60 mg by mouth once daily 60 mg, Oral, Daily, Fir st dose on 08/04/24 at 0900, Do not crush or chew. Start: 06-18-2024 End: 01-15-2025 take 1 capsule by mouth once daily DULoxetine (Cymbalta) [address] capsule Take 1 capsule (60 mg) by mouth daily. Do not crush or chew. 30 capsule 3 06/18/2024 Active Start: 03-17-2023 End: 03-23-2023 take 60 mg by mouth once daily 60 mg, Oral, Daily, Fir st dose on Kayli 03/17/23 at 0900 Do not crush or chew. Start: 01-24-2018 take 1 capsule by mo uth once daily DULoxetine (Cymbalta) [address] capsule TAKE 1 CAPSULE BY MOUTH DAILY 30 capsule 10 10/18/2023 Active Comment on above: TAKE ONE CAPSULE AT 8AM & 8PM ergocalciferol 1.25 mg oral capsule (20 sources) Provitamin D2 Compound Start: 01-01-2025 End: 01-15-2025 take 1250 ug by mouth every week 1,250 mcg, Oral, Weekly, First dose on Tue01/01/25 at 0900 take 1 capsule by mouth every we ek ergocalciferol (Vitamin D-2) 1.25 MG (02578 UT) capsule Take 1.25 mg by mouth 1 (one) time per week. Active famotidine 20 mg oral tablet (18 sources) Histamine-2 Receptor Antagonist Start: 01-02-2018 famotidine (PEPCID) 20 mg tablet TAKE ONE TABLET AT 8AM & 8PM 0 01/02/2018 Active Comment on above: TAKE ONE TABLET AT 8 AM & 8PM furosemide 40 mg oral tablet (20 sources) Loop Diuretic Start: 03-08-2025 End: 03-13-2025 take 20 mg by mouth once daily 20 mg, Oral, Daily, First dose on Tue03/08/25 at 0945 Start: 11-15-2024 40 mg, IntraVE Nous, Once, On Tue11/15/24 at 0635, For 1 dose Start: 10-07-2024 End: 03-15-2025 take 1 tablet by mouth once daily furosemide (Lasix) 40 MG tablet Take 1 tablet (40 mg) by mouth daily. 30 tablet 1 10/07/2024 03/15/2025 Discontinued (Stop taking at discharge) Start: 08-03-2024 End: 08-03-2024 15 mg, IntraVENous, Once, On Tue08/03/24 at 1405, For 1 dose Start: 06-28-2024 End: 07-04-2024 take 20 mg by mouth once daily 20 mg, Oral, Daily, Fir st dose on Kayli 06/28/24 at 1900 0.5 ml heparin sodium, porcine 40386 unt/ml prefilled syringe (8 sources) Unfractionated Heparin, Anti-coagulant Start: 12-31-2024 End: 01-15-2025 inject 1 dose by subcutaneous injection twice daily 5,000 Units, SubCUTAneous, Every 12 hours scheduled (2 times per day), First dose on Tue12/31/24 at 2100 Start: 08-03-2024 End: 08-10-2024 inject 1 dose by subcutaneous injection twice daily 5,000 Units, SubCUTAneous, Every 12 hours scheduled (2 times per day), First dose on Tue08/03/24 at 2230 Start: 06-28-2024 End: 07-04-2024 inject 1 dose by subcutaneous injection twice daily 5,000 Units, SubCUTAneous, Every 12 hours scheduled (2 times per day), First dose on Tue06/28/24 at 2100 Start: 03-17-2023 End: 03-23-2023 inject 1 dose by subcutaneous injection three times daily 5,000 Units, SubCUTAneous, Every 8 hours scheduled (3 times per day), First dose on Tue03/17/23 at 0600 hydrALAZINE hydrochloride 25 mg oral tablet (20 sources) Arteriolar Vasodilator Start: 10-06-2024 End: 03-15-2025 take 1 tablet by mouth three times daily hydrALAZINE (Apresoline) 25 MG tablet Take 1 tablet (25 mg) by mouth 3 times daily. 90 tablet 1 10/06/2024 03/15/2025 Discontinued (Stop taking at discharge) Start: 03-22-2023 End: 09-18-2024 take 1 tablet by mouth three times daily hydrALAZINE (Apresoline) 50 MG tablet Take 1 tablet (50 mg) by mouth 3 times daily. 90 tablet 11 09/19/2023 Active iron sucrose (Venofer) 200 mg in sodium chloride 0.9 % 100 mL IVPB (6 sources) Start: 01-03-2025 End: 01-05-2025 200 mg, IntraVENous, at 300 mL/hr, Administer over 20 Minutes, Every 24 hours, First dose (after last modification) on Tue01/03/25 at 1200, For 3 doses, Observe for signs and symptoms of hypersensitivity and/or anaphylactic-type reactions per institutional standard during and following administration. Start: 07-04-2024 End: 07-04-2024 200 mg, IntraVENous, at 300 mL/hr, Administer over 20 Minutes, Once, On Tue07/04/24 at 0900, For 1 dose, Observe for signs and symptoms of hypersensitivity and/or anaphylactic-type reactions per institutional standard during and following administration. Start: 07-03-2024 End: 07-03-2024 200 mg, IntraVENous, at 300 mL/hr, Administer over 20 Minutes, Once, On Tue07/03/24 at 0900, For 1 dose, Observe for signs and symptoms of hypersensitivity and/or anaphylactic-type reactions per institutional standard during and following administration. iron sucrose (Venofer) 300 mg in sodium chloride 0.9 % 250 mL IVPB (2 sources) Start: 01-02-2025 End: 01-02-2025 300 mg, IntraVENous, at 166.7 mL/hr, Administer over 90 Minutes, Once, On Tue01/02/25 at 0900, For 1 dose, Observe for signs and symptoms of hypersensitivity and/or anaphylactic-type reactions per institutional standard during and following administration. lactobacillus acidophilus [id number] unt / pectin 100 mg oral tablet (10 sources) Start: 01-24-2018 Acidophilus-Pe ctin, [place] 25 million cell -100 mg tab TAKE ONE TABLET AT 12PM 30 tablet 0 01/24/2018 Active Comment on above: TAKE ONE TABLET AT 1 2PM lactulose 667 mg/ml oral solution (4 sources) Osmotic Laxative Start: 01-09-2025 End: 01-09-2025 20 g, Oral, Once, On Tue01/09/25 at 1345, For 1 dose Start: 01-08-2025 End: 01-08-2025 20 g, Oral, Once, On 12/14 at 1115, For 1 dose lamoTRIgine 100 mg oral tablet (20 sources) Mood Stabilizer, Anti-epileptic Agent Start: 03-07-2025 End: 03-15-2025 take 150 mg by mouth once daily 150 mg, Oral, Nightly, First dose on Tue03/07/25 at 2100 Start: 12-14-2024 End: 01-15-2025 take 1 tablet by mouth once daily lamoTRIgine (LaMICtal) 150 MG tablet Take 1 tablet (150 mg) by mouth Nightly. 30 tablet 2 12/14/2024 Active Start: 08-03-2024 End: 08-10-2024 take 200 mg by mouth once daily 200 mg, Oral, Nightly, First dose on Tue08/03/24 at 2230 Start: 06-28-2024 End: 07-04-2024 take 200 mg by mouth once daily 200 mg, Oral, Nightly, First dose on Tue06/28/24 at 2100 Start: 06-18-2024 End: 11-20-2024 take 1 tablet by mouth once daily lamoTRIgine (LaMICtal) 200 MG tablet Take 1 tablet (200 mg) by mouth Nightly. 30 tablet 3 06/18/2024 11/20/2024 Discontinued Start: 09-26-2023 take 1 tablet by diane th once daily lamoTRIgine (LaMICtal) 200 MG tablet TAKE 1 TABLET BY MOUTH NIGHTLY 30 tablet 10 09/26/2023 Active Start: 06-01-2023 take 1 tablet by diane th once daily lamoTRIgine (LaMICtal) 200 MG tablet Take 1 tablet (200 mg) by mouth Nightly. 30 tablet 3 06/01/2023 Active Start: 05-06-2023 take 1 tablet by diane th once daily lamoTRIgine (LaMICtal) 200 MG tablet Take 1 tablet (200 mg) by mouth Nightly. 30 tablet 3 05/06/2023 Active Start: 12-03-2022 take 1 tablet by diane th once daily lamoTRIgine (LaMICtal) 200 MG tablet TAKE 1 TABLET BY MOUTH NIGHTLY 30 tablet 10 12/03/2022 Active Start: 02-02-2022 take 1 tablet by diane th once daily lamoTRIgine (LAMICTAL) 200 MG tablet Indications: Chronic schizoaffective disorder (HCC) TAKE 1 TABLET BY MOUTH NIGHTLY 30 tablet 10 02/02/2022 Active Start: 01-05-2022 take 1 tablet by diane th at bedtime lamoTRIgine 250 MG TB24 Take 1 tablet by mouth at bedtime REPLACES immediate release lamotrigene 30 tablet 2 01/05/2022 Active Start: 08-27-2021 take 1 tablet by diane th once daily lamoTRIgine (LAMICTAL) 200 MG tablet Indications: Chronic schizoaffective disorder (HCC) TAKE 1 TABLET BY MOUTH NIGHTLY 30 tablet 5 08/27/2021 Active Start: 01-17-2021 take 1 tablet by diane th once daily lamoTRIgine (LAMICTAL) 200 MG tablet Take 1 tablet by mouth nightly 30 tablet 0 01/17/2021 Active Start: 07-29-2020 take 1 tablet by diane th once daily lamoTRIgine (LAMICTAL) 200 MG tablet Take 1 tablet by mouth nightly 30 tablet 5 07/29/2020 Active Start: 11-13-2019 take 1 tablet by diane th once daily lamoTRIgine (LAMICTAL) 200 MG tablet TAKE 1 TABLET BY MOUTH NIGHTLY 30 tablet 10 11/13/2019 Active Start: 02-01-2019 take 1 tablet by diane th once daily lamoTRIgine (LAMICTAL) 200 MG tablet Take 1 tablet by mouth nightly 30 tablet 5 05/08/2019 Active Start: 01-24-2018 End: 03-23-2023 lamoTRIgine (LaMICtal) table t 100 mg Comment on above: TAKE ONE TABLET IN T HE MORNING and TAKE TWO TABLETS AT 8PM levothyroxine sodium 0.05 mg oral tablet (20 sources) l-Thyroxine Start: 03-07-2025 End: 03-15-2025 take 125 ug by mouth once daily 125 mcg, Oral, Daily, First dose on Kayli 03/07/25 at 0840, Tube feeding (TF) interaction, obtain physician order to manage, recommend holding TF for 30 minutes before and after dose. Start: 01-01-2025 End: 01-15-2025 take 137.5 ug by mouth once daily before breakfast 137.5 mcg, Oral, Daily before breakfast, First dose (after last modification) on Tue01/01/25 at 0600, Tube feeding (TF) interaction, obtain physician order to manage, recommend holding TF for 30 minutes before and after dose. Start: 12-30-2024 End: 12-31-2024 take 125 ug by mouth once daily 125 mcg, Oral, Daily, First dose on Tue12/30/24 at 1820, Tube feeding (TF) interaction, obtain physician order to manage, recommend holding TF for 30 minutes before and after dose. Start: 08-06-2024 take 1 tablet by diane th once daily levothyroxine (Synthroid, Levoxyl) 125 MCG tablet Take 1 tablet (125 mcg) by mouth daily. Do not start before August 06, 2024. 08/06/2024 Active Start: 08-04-2024 End: 08-10-2024 take 125 ug by mouth once daily 125 mcg, Oral, Daily, First dose (after last modification) on Tue08/06/24 at 0600, Tube feeding (TF) interaction, obtain physician order to manage, recommend holding TF for 30 minutes before and after dose. Start: 06-28-2024 End: 07-04-2024 take 175 ug by mouth once daily 175 mcg, Oral, Daily, First dose on Kayli 06/28/24 at 1900, Tube feeding (TF) interaction, obtain physician order to manage, recommend holding TF for 30 minutes before and after dose. Start: 03-17-2023 End: 03-23-2023 take 175 ug by mouth once daily 175 mcg, Oral, Daily, First dose on Kayli 03/17/23 at 0700 Tube feeding (TF) interaction, obtain physician order to manage, recommend holding TF for 30 minutes before and after dose. Start: 01-06-2022 End: 08-10-2024 take 1 tablet by mouth in the morning levothyroxine (Synthroid, Levoxyl) 175 MCG tablet Take 175 mcg by mouth in the morning. 03/07/2022 08/10/2024 Discontinued (Stop taking at discharge) Start: 04-03-2021 End: 01-06-2022 take 1 tablet by mouth once daily levothyroxine (SYNTHROID) 200 MCG tablet take 1 tablet by mouth once daily TUESDAY THROUGH TUESDAY - SKIP TUESDAY AND TUESDAY 0 04/03/2021 Active Start: 02-25-2015 take 2 tablets by mo [facility] every week levothyroxine (SYNTHROID) 200 MCG tablet Take 200 mcg by mouth every morning And take two tablets by mouth weekly Tuesday at 7am 0 02/25/2015 Active Comment on above: take 1 tablet by diane th once daily TUESDAY THROUGH TUESDAY - SKIP TUESDAY AND TUESDAY Take 1 tablet by diane once daily. TAKE 1 TABLET BY DIANE TH EVERY DAY TAKE 1 TABLET BY DIANE TH ONCE DAILY *DOSE CHANGE* magnesium oxide 400 mg oral tablet (10 sources) Start: 09-09-2017 take 1 tablet by mouth twice daily magnesium oxide (MAG-OX) 400 mg tablet Take 1 tablet by mouth twice daily. 0 09/09/2017 Active Comment on above: Take 1 tablet by diane twice daily. melatonin 3 mg oral tablet (20 sources) Start: 03-07-2025 End: 03-15-2025 take 6 mg by mouth once daily as needed for sleep 6 mg, Oral, Nightly PRN, sleep, Starting on Tue03/07/25 at 2206 Start: 01-01-2025 End: 01-15-2025 take 3 mg by mouth once daily as needed for sleep 3 mg, Oral, Nightly PRN, sleep, Starting on Tue01/01/25 at 2122 MELATONIN PO Tong e by mouth. Suspended MELATONIN PO Tong e by mouth. Active multivitamin-ferrous fumarate-folic acid (CENTRUM) (9 sources) take 1 tablet by mouth once daily multivitamin-ferrous fumarate-folic acid (CENTRUM) Take 1 tablet by mouth once daily. 0 Active Comment on above: Take 1 tablet by diane th once daily. 1 ml naloxone hydrochloride 0.4 mg/ml injection (6 sources) Opioid Antagonist Start: 2024 End: 2024 0.4 mg, IntraVENous, Every 5 min PRN, opioid reversal, respiratory depression, Starting on Tue03/11/25 at 1804, +++ For RR Start: 12-31-2024 End: 01-15-2025 0.4 mg, IntraVENous, Every 5 min PRN, opioid reversal, respiratory depression, Starting on Tue12/31/24 at 1310, +++ For RR Start: 08-03-2024 End: 08-10-2024 0.4 mg, IntraVENous, Every 5 min PRN, opioid reversal, respiratory depression, Starting on Tue08/03/24 at 2306, +++ For RR naproxen 250 mg oral tablet (10 sources) Nonsteroidal Anti-inflammatory Drug naproxen (NAPROSY N) 250 mg tablet Take 250 mg by mouth. 0 Active Comment on above: Take 250 mg by mouth . ondansetron ODT (Zofran-ODT) disintegrating tablet 4 mg (10 sources) Start: 2024 End: 2024 take 1 tablet by mouth every eight hours as needed for nausea and vomiting ondansetron ODT (Zofran-ODT) disintegrating tablet 4 mg Start: 12-30-2024 End: 01-15-2025 take 1 tablet by mouth every eight hours as needed for nausea and vomiting ondansetron ODT (Zofran-ODT) disintegrating tablet 4 mg Start: 08-03-2024 End: 08-10-2024 take 1 tablet by mouth every eight hours as needed for nausea and vomiting ondansetron ODT (Zofran-ODT) disintegrating tablet 4 mg Start: 06-28-2024 End: 07-04-2024 take 1 tablet by mouth every eight hours as needed for nausea and vomiting ondansetron ODT (Zofran-ODT) disintegrating tablet 4 mg Start: 03-17-2023 End: 03-23-2023 take 1 tablet by mouth every eight hours as needed for nausea and vomiting ondansetron ODT (Zofran-ODT) disintegrating tablet 4 mg pantoprazole 40 mg delayed release oral tablet (13 sources) Proton Pump Inhibitor Start: 12-31-2024 End: 01-15-2025 take 40 mg by mouth once daily before breakfast 40 mg, Oral, Daily before breakfast, First dose on Tue12/31/24 at 0600, Substituted for omeprazole (Prilosec). Do not crush, chew, or split. Start: 08-04-2024 End: 08-10-2024 take 40 mg by mouth once daily before breakfast 40 mg, Oral, Daily before breakfast, First dose on Tue08/04/24 at 0600, Substituted for omeprazole (Prilosec). Do not crush, chew, or split. Start: 03-17-2023 End: 07-04-2024 take 40 mg by mouth once daily before breakfast 40 mg, Oral, Daily before breakfast, First dose on 06/29/24 at 0600, Substituted for omeprazole (Prilosec). Do not crush, chew, or split. polyethylene glycol 3350 14471 mg powder for oral solution (20 sources) Osmotic Laxative Start: 03-07-2025 End: 03-15-2025 take 17 g by mouth every twenty-four hours as needed for constipation 17 g, Oral, Daily PRN, constipation, Starting on Kayli 03/07/25 at 0836, 1st line for treatment of constipation - give scheduled if no bowel movement in past 24 hours. Start: 01-10-2025 End: 01-15-2025 take 1 dose by mouth every twenty-four hours for constipation 17 g, Oral, Daily, First dose (after last modification) on Kayli 01/10/25 at 1630, 1st line for treatment of constipation - give scheduled if no bowel movement in past 24 hours. Start: 12-30-2024 End: 01-10-2025 take 17 g by mouth every twenty-four hours as needed for constipation 17 g, Oral, Daily PRN, constipation, Starting on Tue12/30/24 at 1819, 1st line for treatment of constipation - give scheduled if no bowel movement in past 24 hours. Start: 08-03-2024 End: 08-10-2024 take 17 g by mouth every twenty-four hours as needed for constipation 17 g, Oral, Daily PRN, constipation, Starting on Tue08/03/24 at 2225, 1st line for treatment of constipation - give scheduled if no bowel movement in past 24 hours., On hold since Tue08/10/2024 at 0853 until manually unheld Start: 06-28-2024 End: 07-04-2024 take 17 g by mouth every twenty-four hours as needed for constipation 17 g, Oral, Daily PRN, constipation, Starting on Kayli 06/28/24 at 1858, 1st line for treatment of constipation - give scheduled if no bowel movement in past 24 hours. Start: 03-17-2023 End: 03-20-2023 polyethylene glycol (PEG) 33 50 (Miralax) packet 17 g Start: 03-17-2023 End: 03-23-2023 take 17 g by mouth every twenty-four hours as needed for constipation 17 g, Oral, Daily PRN, constipation, Starting on Kayli 03/17/23 at 0419 1st line for treatment of constipation - give scheduled if no bowel movement in past 24 hours. polyethylene gly col, PEG, 3350 (Miralax) 17 g packet Take by mouth. Active microencapsulated potassium chloride 20 meq extended release oral tablet (16 sources) Start: 01-24-2018 potassium chloride ER (K-DUR, KLOR-CON) 20 mEq tablet TAKE ONE TABLET AT 8AM & 8PM 60 tablet 0 01/24/2018 Active Comment on above: TAKE ONE TABLET AT 8 AM & 8PM risperiDONE 3 mg oral tablet (20 sources) Atypical Antipsychotic Start: 12-14-2024 End: 03-15-2025 take 3 mg by mouth once daily 3 mg, Oral, Nightly, First dose on Tue03/07/25 at 2100, Indications: Mixed Bipolar Affective Disorder Start: 09-13-2024 take 2 tablets by mo uth once daily risperiDONE (RisperDAL) 3 MG tablet Indications: Mixed Bipolar Affective Disorder Take 2 tablets (6 mg) by mouth Nightly. 60 tablet 3 09/13/2024 Active Start: 08-03-2024 End: 08-10-2024 take 6 mg by mouth once daily 6 mg, Oral, Nightly, Fir st dose on Tue08/03/24 at 2230, Indications: Mixed Bipolar Affective Disorder Start: 06-28-2024 End: 07-04-2024 take 6 mg by mouth once daily 6 mg, Oral, Nightly, Fir [facility] dose on Kayli 06/28/24 at 2100, Indications: Mixed Bipolar Affective Disorder Start: 06-18-2024 take 2 tablets by mo uth once daily risperiDONE (RisperDAL) 3 MG tablet Indications: Mixed Bipolar Affective Disorder Take 2 tablets (6 mg) by mouth Nightly. 60 tablet 3 06/18/2024 Active Start: 09-05-2023 take 2 tablets by mo uth once daily risperiDONE (RisperDAL) 3 MG tablet Indications: Mixed Bipolar Affective Disorder Take 2 tablets (6 mg) by mouth Nightly. 60 tablet 3 09/05/2023 Active Start: 08-10-2023 End: 07-04-2024 take 1 tablet by mouth twice daily at bedtime risperiDONE (RisperDAL) 3 MG tablet Indications: Schizophrenia Take 1 tablet (3 mg) by mouth 2 times daily. Please take at lunchtime, and at bedtime 60 tablet 2 08/10/2023 07/04/2024 Discontinued (Stop taking at discharge) Start: 05-23-2023 take 1 tablet by diane th twice daily at bedtime risperiDONE (RisperDAL) 3 MG tablet Indications: Schizophrenia Take 1 tablet (3 mg) by mouth 2 times daily. Please take at lunchtime, and at bedtime 60 tablet 1 05/23/2023 Active Start: 05-06-2023 End: 05-11-2023 take 2 tablets by mouth once daily risperiDONE (RisperDAL) 3 MG tablet Indications: Mixed Bipolar Affective Disorder Take 2 tablets (6 mg) by mouth Nightly. 60 tablet 3 05/11/2023 Active Start: 03-17-2023 End: 03-23-2023 take 3 mg by mouth once daily 3 mg, Oral, Nightly, Fir st dose on Kayli 03/17/23 at 2100 Start: 12-03-2022 take 2 tablets by mo uth once daily risperiDONE (RisperDAL) 3 MG tablet TAKE 2 TABLETS BY MOUTH NIGHTLY 60 tablet 10 12/03/2022 Active Start: 04-20-2022 take 2 tablets by mo uth once daily risperiDONE (RISPERDAL) 3 MG tablet Indications: Chronic schizoaffective disorder (HCC) TAKE TWO (2) TABLETS BY MOUTH NIGHTLY 60 tablet 0 04/20/2022 Active Start: 08-27-2021 take 2 tablets by mo uth once daily risperiDONE (RISPERDAL) 3 MG tablet Indications: Chronic schizoaffective disorder (HCC) TAKE TWO (2) TABLETS BY MOUTH NIGHTLY 60 tablet 10 08/27/2021 Active Start: 01-19-2021 take 1 tablet by diane th twice daily risperiDONE (RISPERDAL) 3 MG tablet Take 1 tablet by mouth 2 times daily 60 tablet 5 01/19/2021 Active Start: 09-12-2020 take 2 tablets by mo uth once daily risperiDONE (RISPERDAL) 3 MG tablet TAKE 2 TABLETS BY MOUTH NIGHTLY 60 tablet 10 09/12/2020 Active Start: 11-16-2019 take 3 tablets by mo uth once daily risperiDONE (RISPERDAL) 3 MG tablet take 3 tablets by mouth once daily 90 tablet 5 11/16/2019 Active Start: 05-08-2019 take 2 tablets by mo uth once daily risperiDONE (RISPERDAL) 3 MG tablet Take 2 tablets by mouth nightly 60 tablet 5 05/08/2019 Active Start: 12-26-2018 take 5 tablets by mo uth once daily at bedtime risperiDONE (RISPERDAL) 2 MG tablet TAKE 5 TABLETS BY MOUTH EVERY NIGHT AT BEDTIME 150 tablet 10 12/26/2018 Active Start: 12-21-2018 take 2.5 tablets by mouth once daily risperiDONE (RISPERDAL) 3 MG tablet Indications: Chronic schizoaffective disorder (HCC) Take 2.5 tablets by mouth daily 75 tablet 5 12/21/2018 Active Start: 01-24-2018 risperiDONE (R ISPERDAL) 4 mg tablet TAKE 4 TABLETS AT BEDTIME 120 tablet 0 01/24/2018 Active Comment on above: TAKE 4 TABLETS AT BE DTIME rosuvastatin calcium 10 mg oral tablet (20 sources) HMG-CoA Reductase Inhibitor Start: 12-30-2024 End: 01-15-2025 take 10 mg by mouth once daily 10 mg, Oral, Daily, First dose on 12/30/24 at 1820 Start: 06-30-2023 End: 03-15-2025 take 10 mg by mouth once daily 10 mg, Oral, Daily, Fir [facility] dose on [place] 03/07/25 at 0900 Selenium 200 MCG capsule (9 sources) Start: 01-03-2023 End: 03-23-2023 Selenium 200 MCG capsule TONG E 1 CAPSULE BY MOUTH AT 8PM 30 capsule 01/03/2023 03/23/2023 Discontinued (Stop taking at discharge) Start: 01-03-2023 Selenium 200 M CG capsule TAKE 1 CAPSULE BY MOUTH AT 8PM 30 capsule 01/03/2023 Suspended Start: 01-03-2023 Selenium 200 M CG capsule TAKE 1 CAPSULE BY MOUTH AT 8PM 30 capsule 10 01/03/2023 Active selenium 200 mcg tab (10 sources) Start: 12-26-2017 selenium 200 m cg tab TAKE ONE TABLET IN THE MORNING 30 tablet 0 12/26/2017 Active Comment on above: TAKE ONE TABLET IN T HE MORNING 5 ml sodium chloride 9 mg/ml injection (20 sources) Start: 03-07-2025 End: 03-15-2025 take 5-40 mL intravenously every twelve hours 5-40 mL, IntraVENous, Every 12 hours, First dose on Kayli 03/07/25 at 0840, For Line Patency: Peripheral IV = 5 mL; Midline or Central Line = 10 mL/lumen. If following IV push medication, administer flush at same rate as the IV push. Flush volume is determined by type of infusion therapy being given. For non-viscous solutions use: Peripheral IV = 5 mL Midline or Central Line = 10 mL/lumen For viscous solutions (i.e. blood components, parenteral nutrition, contrast media, or after obtaining blood sample) use: Peripheral IV = 10 mL Midline or Central Line = 20 mL/lumen Start: 03-07-2025 End: 03-15-2025 Start: 03-07-2025 End: 03-15-2025 Start: 03-07-2025 End: 03-08-2025 500 mL, IntraVENous, at 125 mL/hr, Administer over 4 Hours, Once, On Kayli 03/07/25 at 1900, For 1 dose Start: 12-30-2024 End: 01-15-2025 take 5-40 mL intravenously every twelve hours 5-40 mL, IntraVENous, Every 12 hours, First dose on [place] 12/30/24 at 1820, For Line Patency: Peripheral IV = 5 mL; Midline or Central Line = 10 mL/lumen. If following IV push medication, administer flush at same rate as the IV push. Flush volume is determined by type of infusion therapy being given. For non-viscous solutions use: Peripheral IV = 5 mL Midline or Central Line = 10 mL/lumen For viscous solutions (i.e. blood components, parenteral nutrition, contrast media, or after obtaining blood sample) use: Peripheral IV = 10 mL Midline or Central Line = 20 mL/lumen Start: 12-30-2024 End: 01-15-2025 Start: 12-30-2024 End: 01-15-2025 Start: 11-15-2024 End: 11-15-2024 500 mL, IntraVENous, at 500 mL/hr, Administer over 1 Hours, Once, On [facility] 11/15/24 at 0855, For 1 dose Start: 11-03-2024 End: 11-03-2024 1,000 mL, IntraVENous, at 1, 000 mL/hr, Administer over 1 Hours, Once, On 11/03/24 at 0410, For 1 dose Start: 06-28-2024 End: 06-30-2024 take 75 mL intravenously every hour 75 mL/hr, IntraVEN ous, Continuous, Starting on Kayli 06/28/24 at 1900 Start: 06-28-2024 End: 06-28-2024 1,000 mL, IntraVENous, at 1, 000 mL/hr, Administer over 1 Hours, Once, On Kayli 06/28/24 at 1120, For 1 dose Start: 03-17-2023 End: 03-18-2023 take 100 mL intravenously every hour 100 mL/hr, IntraVENous, Continuous, Starting on Kayli 03/17/23 at 0430 Start: 03-16-2023 End: 03-16-2023 sodium chloride 0.9 % bolus 1,000 [place] [address] mg powder for oral suspension (4 sources) Start: 08-10-2024 End: 08-10-2024 10 g, Oral, Once, On Tue08/10/24 at 0900, For 1 dose, Empty entire contents of packet(s) into 45 mL water. Stir well and administer immediately. If powder remains, rinse glass with water and administer. Start: 08-08-2024 End: 08-08-2024 5 g, Oral, Once, On 07/16 at 0900, For 1 dose, Empty entire contents of packet(s) into 45 mL water. Stir well and administer immediately. If powder remains, rinse glass with water and administer. Administer other meds at least 2 hours before or after dose to prevent decreases in their absorption. stomahesive in petrolatum (E T Mix) (6 sources) Start: 03-12-2025 End: 03-15-2025 Topical, PRN, dry skin, Starting on Tue03/12/25 at 1117, Nursing staff to perform dressing change: Right Buttock: Unstageable pressure injury (resolved) - Apply ET mix. Leave GRAIN HANDLER. Apply PRN Left Posterior thigh: Scar Tissue - Apply ET mix. Leave TANA. Apply PRN Start: 01-02-2025 End: 01-15-2025 apply 1 dose topically every eight hours Topical, Every 8 hours, First dose on Tue01/02/25 at 1400, Apply to sacrum and left post thigh Start: 01-02-2025 End: 01-15-2025 Topical, PRN, dry skin, Star ting on Tue01/02/25 at 1222 tamsulosin hydrochloride 0.4 mg oral capsule (20 sources) alpha-Adrenergic Tomasa Start: 01-24-2018 End: 12-25-2024 take 1 capsule by mouth once daily tamsulosin (Flomax) 0.4 MG 24 hr capsule Indications: Urinary retention Take 1 capsule (0.4 mg) by mouth daily. 30 capsule 02/06/2024 12/25/2024 Discontinued Comment on above: TAKE ONE CAPSULE AT 12PM traMADol hydrochloride 50 mg oral tablet (10 sources) Opioid Agonist Start: 08-18-2017 traMADol (ULTRAM) 50 mg tablet Take 50 mg by mouth. 0 08/18/2017 Active Comment on above: Take 50 mg by mouth. traZODone hydrochloride 50 mg oral tablet (20 sources) Serotonin Reuptake Inhibitor Start: 03-08-2025 End: 03-15-2025 take 100 mg by mouth once daily 100 mg, Oral, Nightly, First dose on Tue03/08/25 at 2100 Start: 12-31-2024 End: 01-15-2025 take 200 mg by mouth once daily 200 mg, Oral, Nightly, First dose on Tue12/31/24 at 2100 Start: 08-03-2024 End: 08-10-2024 take 200 mg by mouth once daily 200 mg, Oral, Nightly, First dose on Tue08/03/24 at 2230 Start: 06-28-2024 End: 07-04-2024 take 200 mg by mouth once daily 200 mg, Oral, Nightly, First dose on Kayli 06/28/24 at 2100 Start: 06-18-2024 take 2 tablets by mo uth once daily traZODone (Desyrel) 100 MG tablet Take 2 tablets (200 mg) by mouth Nightly. 60 tablet 3 06/18/2024 Active Start: 09-27-2023 take 2 tablets by mo uth once daily traZODone (Desyrel) 100 MG tablet Take 2 tablets (200 mg) by mouth Nightly. 60 tablet 3 09/27/2023 Active Start: 05-06-2023 End: 05-11-2023 take 2 tablets by mouth once daily traZODone (Desyrel) 100 MG tablet Take 2 tablets (200 mg) by mouth Nightly. 60 tablet 3 05/11/2023 Active Start: 03-17-2023 End: 03-23-2023 traZODone (Desyrel) tablet 1 00 mg Start: 01-03-2023 take 2 tablets by mo uth once daily traZODone (Desyrel) 100 MG tablet TAKE 2 TABLETS BY MOUTH NIGHTLY 60 tablet 10 01/03/2023 Active Start: 03-23-2022 take 2 tablets by mo uth once daily traZODone (DESYREL) 100 MG tablet TAKE TWO (2) TABLETS BY MOUTH NIGHTLY 60 tablet 10 03/23/2022 Active Start: 10-08-2021 take 2 tablets by mo uth once daily traZODone (DESYREL) 100 MG tablet TAKE 2 TABLETS BY MOUTH NIGHTLY 60 tablet 5 10/08/2021 Active Start: 04-21-2021 take 2 tablets by mo uth once daily traZODone (DESYREL) 100 MG tablet TAKE TWO (2) TABLETS BY MOUTH NIGHTLY 60 tablet 5 04/21/2021 Active Start: 01-19-2021 take 2 tablets by mo uth once daily traZODone (DESYREL) 100 MG tablet Take 2 tablets by mouth nightly 60 tablet 5 01/19/2021 Active Start: 07-29-2020 take 2 tablets by mo uth once daily traZODone (DESYREL) 100 MG tablet Take 2 tablets by mouth nightly 60 tablet 5 07/29/2020 Active Start: 12-13-2019 take 2 tablets by mo uth once daily traZODone (DESYREL) 100 MG tablet TAKE TWO (2) TABLETS BY MOUTH NIGHTLY *MED-DOSE PATIENT* 60 tablet 10 12/13/2019 Active Start: 07-16-2019 take 2 tablets by mo uth once daily traZODone (DESYREL) 100 MG tablet Take 2 tablets by mouth nightly 60 tablet 5 07/16/2019 Active Start: 02-01-2019 take 2 tablets by mo uth once daily traZODone (DESYREL) 100 MG tablet Take 2 tablets by mouth nightly 60 tablet 5 02/01/2019 Active 24 hr divalproex sodium 250 mg extended release oral tablet (20 sources) Mood Stabilizer, Anti-epileptic Agent Start: 03-07-2025 End: 03-15-2025 take 250 mg by mouth three times daily at mealtime 250 mg, Oral, 3 times daily with meals, First dose on Kayli 03/07/25 at 0840, Do not crush, chew, or split. Start: 12-30-2024 End: 01-15-2025 take 250 mg by mouth three times daily at mealtime 250 mg, Oral, 3 times daily with meals, First dose on 12/30/24 at 1820, Do not crush, chew, or split. Start: 08-04-2024 End: 08-10-2024 take 250 mg by mouth three times daily at mealtime 250 mg, Oral, 3 times daily with meals, First dose on 08/04/24 at 0800, Do not crush, chew, or split. Start: 06-28-2024 End: 07-04-2024 take 250 mg by mouth three times daily at mealtime 250 mg, Oral, 3 times daily with meals, First dose on Kayli 06/28/24 at 1930, Do not crush, chew, or split. Start: 01-10-2024 divalproex (De pakote ER) 250 MG 24 hr tablet Take 1 tablet (250 mg) by mouth in the morning and 1 tablet (250 mg) at noon and 1 tablet (250 mg) in the evening. Take with meals. 90 tablet 2 01/10/2024 Active Start: 10-19-2023 divalproex (De pakote ER) 250 MG 24 hr tablet Take 1 tablet (250 mg) by mouth in the morning and 1 tablet (250 mg) at noon and 1 tablet (250 mg) in the evening. Take with meals. 90 tablet 2 10/19/2023 Active Start: 08-10-2023 divalproex (De pakote ER) 250 MG 24 hr tablet Take 1 tablet (250 mg) by mouth in the morning and 1 tablet (250 mg) at noon and 1 tablet (250 mg) in the evening. Take with meals. 90 tablet 2 08/10/2023 Active Start: 06-28-2023 take 1 tablet by diane th three times daily divalproex (Depakote ER) 250 MG 24 hr tablet take 1 tablet by mouth three times a day DO NOT CRUSH, CHEW, AND/OR DIVIDE 30 tablet 0 06/28/2023 Active Start: 06-03-2023 take 1 tablet by diane th three times daily divalproex (Depakote ER) 250 MG 24 hr tablet Take 1 tablet (250 mg) by mouth 3 times daily. Do not crush, chew, or split. 30 tablet 0 06/03/2023 Active Start: 05-06-2023 take 1 tablet by diane th three times daily divalproex (Depakote ER) 250 MG 24 hr tablet Take 1 tablet (250 mg) by mouth 3 times daily. Do not crush, chew, or split. 90 tablet 3 05/06/2023 Active Start: 02-10-2023 End: 03-23-2023 take 1 tablet by mouth three times daily divalproex (Depakote ER) 250 MG 24 hr tablet Take 1 tablet (250 mg) by mouth 3 times daily. Do not crush, chew, or split. 90 tablet 1 03/01/2023 Active Start: 02-07-2023 take 1 tablet by diane th three times daily divalproex (Depakote ER) 250 MG 24 hr tablet TAKE 1 TABLET BY MOUTH 3 TIMES DAILY 21 tablet 10 02/07/2023 Active Start: 04-21-2022 take 1 tablet by mouth once da vania divalproex (DEPAKOTE ER) 250 MG extended release tablet Take 1 tablet by mouth daily for 5 days 5 tablet 0 04/21/2022 Active Start: 03-23-2022 take 1 tablet by diane th three times daily divalproex (DEPAKOTE ER) 250 MG extended release tablet TAKE 1 TABLET BY MOUTH 3 TIMES DAILY 90 tablet 10 03/23/2022 Active Start: 04-21-2021 take 1 tablet by diane th three times daily divalproex (DEPAKOTE ER) 250 MG extended release tablet TAKE 1 TABLET BY MOUTH THREE TIMES DAILY 90 tablet 5 04/21/2021 Active Start: 01-17-2021 take 1 tablet by diane th three times daily divalproex (DEPAKOTE ER) 250 MG extended release tablet Take 1 tablet by mouth three times daily 90 tablet 0 01/17/2021 Active Start: 07-29-2020 take 1 tablet by diane th three times daily divalproex (DEPAKOTE ER) 250 MG extended release tablet Take 1 tablet by mouth three times daily 90 tablet 5 07/29/2020 Active Start: 12-13-2019 take 1 tablet by diane th three times daily divalproex (DEPAKOTE ER) 250 MG extended release tablet TAKE 1 TABLET BY MOUTH THREE TIMES DAILY 90 tablet 10 12/13/2019 Active Start: 12-21-2018 take 1 tablet by diane th three times daily divalproex (DEPAKOTE ER) 250 MG extended release tablet Take 1 tablet by mouth three times daily 90 tablet 5 05/08/2019 Active Start: 01-24-[address] (DEPAKOTE) 500 mg EC tablet TAKE ONE TABLET AT 8AM & 8PM 60 tablet 0 01/24/2018 Active Comment on above: TAKE ONE TABLET AT 8 AM & 8PM Problems Active Problems Problem Classification Problem Date Documented Date Episodic/Chronic Acute and unspecified renal failure (15 sources) Acute injury of kidney; Translations: [JOSE A (acute kidney injury)] Onset: 8 10-12-2017 Administrative/social admission (4 sources) Other reduced mobility; Translations: [Other specified conditions influencing health status] Onset: 5 03-07-2025 Episodic Anxiety disorders (20 sources) Anxiety disorder, unspecified; Translations: [Anxiety] Onset: 5 04-03-2015 Chronic Blindness and vision defects (1 source) Abnormal vision 09-18-2024 Chronic Cardiac dysrhythmias (4 sources) Bradycardia, unspecified; Translations: [Unspecified atrial fibrillation] Onset: 8 Chronic Chronic kidney disease (20 sources) Chronic kidney disease, stage 4 (severe); Translations: [Chronic kidney disease, stage 3 (moderate)] Onset: 7 Resolved: 2 05-21-2018 Chronic Chronic kidney disease (2 sources) Chronic kidney disease; Translations: [Chronic kidney disease, stage 3b] Onset: 2 Chronic ulcer of skin (6 sources) Ulcer of thigh; Translations: [Pressure ulcer of left hip, stage 3] Onset: 5 01-15-2025 Chronic Deficiency and other anemia (2 sources) Anemia in chronic kidney disease; Translations: [Anemia in chronic kidney disease] Onset: 5 Chronic Deficiency and other anemia (3 sources) Anemia; Translations: [Anemia, unspecified] 08-03-2024 Episodic Diabetes mellitus with complications (2 sources) Type 2 diabetes mellitus with diabetic chronic kidney disease; Translations: [Type 2 diabetes mellitus w diabetic chronic kidney disease] Onset: 8 Chronic Disorders of lipid metabolism (6 sources) Hyperlipidemia, unspecified; Translations: [Mixed hyperlipidemia] Onset: 8 09-18-2024 Chronic Disorders usually diagnosed in infancy childhood or adolescence (12 sources) Autistic disorder; Translations: [Autism spectrum disorder] Onset: 8 04-30-2016 Chronic Diverticulosis and diverticulitis (20 sources) Diverticulosis of large intestine without perforation or abscess without bleeding; Translations: [Diverticulosis of large intestine without diverticulitis] Onset: 8 03-28-2018 Chronic E Codes: Adverse effects of medical drugs (6 sources) Medication side effects present; Translations: [Adverse effect of unspecified drugs, medicaments and biological substances, subsequent encounter] Onset: 5 12-25-2024 Episodic E Codes: Fall (19 sources) Fall; Translations: [Unspecified fall, initial encounter] Onset: 5 11-03-2024 Episodic Esophageal disorders (20 sources) Gastro-esophageal reflux disease without esophagitis; Translations: [Gastroesophageal reflux disease] Onset: 5 04-03-2015 Chronic Essential hypertension (20 sources) Hypertensive disorder; Translations: [Essential hypertension] Onset: 7 10-12-2017 Chronic External cause codes: Fall (2 sources) Unspecified fall, initial encounter; Translations: [Unspecified fall, initial encounter] Onset: 8 Fluid and electrolyte disorders (20 sources) Hypo-osmolality and hyponatremia; Translations: [Hyponatremia] Onset: 7 02-12-2018 Episodic Fracture of lower limb (2 sources) Unspecified fracture of right foot, subsequent encounter for fracture with routine healing; Translations: [Unspecified fracture of right foot, subsequent encounter for fracture with routine healing] Onset: 5 Episodic Fracture of upper limb (6 sources) Closed fracture of shaft of fifth metacarpal bone of left hand; Translations: [Nondisplaced fracture of shaft of fifth metacarpal bone, left hand, initial encounter for closed fracture] Onset: 5 12-28-2024 Episodic Gastritis and duodenitis (20 sources) Unspecified chronic gastritis without bleeding; Translations: [Chronic antral gastritis] Onset: 8 03-28-2018 Chronic Genitourinary symptoms and ill-defined conditions (20 sources) Unspecified urinary incontinence; Translations: [Urge incontinence of urine] Onset: 5 10-15-2016 Chronic Hemorrhoids (15 sources) Internal hemorrhoids grade I; Translations: [First degree hemorrhoids] 03-28-2018 Hypertension with complications and secondary hypertension (2 sources) Hypertensive chronic kidney disease with stage 1 through stage 4 chronic kidney disease, or unspecified chronic kidney disease; Translations: [Hypertensive chronic kidney disease w stg 1-4/unsp chr kdny] Onset: 8 Chronic Impulse control disorders NEC (17 sources) Psychogenic polydipsia; Translations: [Diabetes insipidus] Onset: 8 Resolved: 2 10-12-2017 Chronic Malaise and fatigue (6 sources) Asthenia; Translations: [Weakness] Onset: 5 11-15-2024 Episodic Miscellaneous mental health disorders (12 sources) Eating disorder; Translations: [Eating disorder, unspecified] Onset: 2 04-30-2016 Chronic Miscellaneous mental health disorders (2 sources) Other specified eating disorder; Translations: [Other specified eating disorder] Onset: 8 Mood disorders (20 sources) Bipolar disorder, unspecified; Translations: [Depressive disorder] Onset: 8 04-03-2015 Chronic Mood disorders (2 sources) Major depressive disorder, single episode, unspecified; Translations: [Major depressive disorder, single episode, unspecified] Onset: 8 Mycoses (4 sources) Candidal intertrigo; Translations: [Candidiasis of skin and nail] Onset: 5 12-25-2024 Episodic Nutritional deficiencies (16 sources) Vitamin D deficiency; Translations: [Vitamin D deficiency, unspecified] Onset: 2 07-28-2017 Chronic Osteoarthritis (20 sources) Unspecified osteoarthritis, unspecified site; Translations: [Patellofemoral osteoarthritis] Onset: 6 11-03-2015 Chronic Other aftercare (1 source) Patient encounter status; Translations: [Other watcher [employer] (current) drug therapy] Episodic Other connective tissue disease (2 sources) Repeated falls; Translations: [Repeated falls] Onset: 5 Episodic Other diseases of kidney and ureters (20 sources) Nephrogenic diabetes insipidus; 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] Onset: 8 Resolved: 2 10-12-2017 Chronic Other diseases of kidney and ureters (1 source) Nephrogenic diabetes insipidus; 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] 04-17-2024 Chronic Other diseases of kidney and ureters (2 sources) Renal impairment; Translations: [Disorder of kidney and ureter, unspecified] 03-16-2023 Episodic Other endocrine disorders (13 sources) Secondary hyperparathyroidism of nonrenal origin; Translations: [Secondary hyperparathyroidism, not elsewhere classified] 02-19-2016 Chronic Other endocrine disorders (10 sources) Diabetes insipidus; Translations: [Diabetes insipidus] Onset: 6 10-21-2017 Chronic Other endocrine disorders (2 sources) Hyperparathyroidism; Translations: [Hyperparathyroidism, unspecified] Onset: 4 04-17-2024 Chronic Other endocrine disorders (1 source) Hyperparathyroidism, unspecified; Translations: [Hyperparathyroidism, unspecified (HCC)] Onset: 4 Chronic Other gastrointestinal disorders (1 source) Incontinence of feces; Translations: [Full incontinence of feces] 02-23-2023 Episodic Other hereditary and degenerative nervous system conditions (10 sources) Medication-induced postural tremor; Translations: [Drug-induced tremor] Onset: 7 07-28-2017 Chronic Other injuries and conditions due to external causes (2 sources) Injury of head; Translations: [Unspecified injury of head, initial encounter] 11-15-2024 Episodic Other nervous system disorders (4 sources) Other chronic pain; Translations: [Other chronic pain] Onset: 8 Chronic Other nervous system disorders (10 sources) Parkinsonism due to drug; Translations: [Other drug induced secondary parkinsonism] 04-30-2016 Chronic Other nervous system disorders (10 sources) Disorder of brain; Translations: [Encephalopathy, unspecified] Onset: 8 09-09-2017 Chronic Other nervous system disorders (2 sources) Chronic pain; Translations: [Other chronic pain] 12-29-2024 Chronic Other non-traumatic joint disorders (1 source) Joint pain; Translations: [Pain in unspecified joint] Episodic Other non-traumatic joint disorders (2 sources) Pain in unspecified joint; Translations: [Pain in unspecified joint] Onset: 2 Episodic Other non-traumatic joint disorders (2 sources) Hip pain; Translations: [Pain in right hip] 11-03-2024 Episodic Other non-traumatic joint disorders (6 sources) Pain in left knee; Translations: [Pain in joint, lower leg] Onset: 5 12-28-2024 Episodic Other nutritional; endocrine; and metabolic disorders (4 sources) Morbid (severe) obesity due to excess calories; Translations: [Morbid (severe) obesity due to excess calories] Onset: 8 Chronic Other nutritional; endocrine; and metabolic disorders (2 sources) Body mass index (BMI) 50-59.9, adult; Translations: [Body mass index (BMI) 50-59.9 , adult] Onset: 8 Chronic Other nutritional; endocrine; and metabolic disorders (20 sources) Hypomagnesemia; Translations: [Hypomagnesemia] Onset: 8 10-12-2017 Chronic Other nutritional; endocrine; and metabolic disorders (4 sources) Body mass index (BMI) 45.0-49.9, adult; Translations: [Body mass index (BMI) 45.0-49.9, adult] Onset: 8 Chronic Other nutritional; endocrine; and metabolic disorders (20 sources) Body mass index 40+ - severely obese; Translations: [Morbid (severe) obesity due to excess calories] Onset: 7 10-12-2017 Chronic Other nutritional; endocrine; and metabolic disorders (1 source) Dipsogenic diabetes insipidus; Translations: [Polydipsia] 06-13-2017 Episodic Other nutritional; endocrine; and metabolic disorders (2 sources) Adult failure to thrive syndrome; Translations: [Adult failure to thrive] 08-03-2024 Episodic Residual codes; unclassified (2 sources) Obstructive sleep apnea (adult) (pediatric); Translations: [Obstructive sleep apnea (adult) (pediatric)] Onset: Chronic Residual codes; unclassified (4 sources) Altered mental status; Translations: [Altered mental status, unspecified] 03-16-2023 Episodic Residual codes; unclassified (2 sources) Transient alteration of awareness; Translations: [Transient alteration of awareness] 08-25-2023 Episodic Residual codes; unclassified (2 sources) Peripheral edema; Translations: [Localized edema] 08-03-2024 Episodic Residual codes; unclassified (2 sources) Other specified conditions influencing health status; Translations: [Difficulty demonstrating health literacy] 12-25-2024 Episodic Residual codes; unclassified (2 sources) Other specified health status; Translations: [Other specified health status] Onset: 5 Episodic Schizophrenia and other psychotic disorders (20 sources) Schizoaffective disorder, bipolar type; Translations: [Schizoaffective disorder] Onset: 8 06-05-2018 Chronic Spondylosis; intervertebral disc disorders; other back problems (20 sources) Sciatica, left side; Translations: [Sciatica, right side] Onset: 7 10-12-2017 Episodic Superficial injury; contusion (14 sources) Contusion of scalp, initial encounter; Translations: [Contusion of right ankle] Onset: 8 08-01-2024 Episodic Thyroid disorders (20 sources) Hypothyroidism, unspecified; Translations: [Hypothyroidism] Onset: 7 06-13-2017 Chronic Unclassified (1 source) Problems related to health literacy; Translations: [Problems related to health literacy] Onset: 5 Unclassified (2 sources) New Patient; Translations: [New Patient] Onset: 4 Urinary tract infections (20 sources) Urinary tract infectious disease; Translations: [Urinary tract infection, site not specified] Onset: 3 03-16-2023 Episodic Past or Other Problems Problem Classification Problem Date Documented Da te Episodic/Chronic Acute and unspecified renal failure (20 sources) Acute kidney failure, unspecified; Translations: [Acute injury of kidney] Onset: 10-06-2017 10-12-2017 Episodic Blindness and vision defects (3 sources) Abnormal vision; Translations: [Unspecified visual disturbance] Onset: 09-18-2024 09-18-2024 Episodic Cancer of breast (20 sources) History of malignant neoplasm of breast; Translations: [Personal history of malignant neoplasm of breast] Onset: 10-06-2016 Resolved: 10-06-2016 10-06-2016 Episodic Complications of surgical procedures or medical care (4 sources) Drug therapy finding; Translations: [Unspecified adverse effect of drug or medicament, initial encounter] Onset: 11-15-2024 11-15-2024 Episodic Conditions associated with dizziness or vertigo (10 sources) Dizziness; Translations: [Dizziness and giddiness] Onset: 09-06-2017 09-06-2017 Episodic Deficiency and other anemia (2 sources) Iron deficiency anemia, unspecified; Translations: [Iron deficiency anemia, unspecified] Onset: 03-28-2018 Episodic Deficiency and other anemia (20 sources) Iron deficiency anemia; Translations: [Iron deficiency anemia, unspecified] Onset: 02-07-2017 10-09-2017 Episodic Deficiency and other anemia (2 sources) Anemia, unspecified; Translations: [Anemia, unspecified] Onset: 08-03-2024 Episodic Diabetes mellitus without complication (20 sources) Type 2 diabetes mellitus without complication; Translations: [Type 2 diabetes mellitus without complications] Resolved: 06-12-2017 06-12-2017 Chronic Gastritis and duodenitis (15 sources) Chronic antral gastritis; Translations: [Chronic antral gastritis] 03-28-2018 Episodic Gastroduodenal ulcer (except hemorrhage) (20 sources) Acute gastric ulcer without hemorrhage AND without perforation; Translations: [Acute gastric ulcer without hemorrhage or perforation] Onset: 03-28-2018 03-28-2018 Episodic Genitourinary symptoms and ill-defined conditions (20 sources) Nocturia; Translations: [Retention of urine] Onset: 10-15-2016 10-15-2016 Episodic Hemorrhoids (20 sources) First degree hemorrhoids; Translations: [Internal hemorrhoids grade I] Onset: 03-28-2018 03-28-2018 Episodic Noninfectious gastroenteritis (2 sources) Noninfective gastroenteritis and colitis, unspecified; Translations: [Noninfective gastroenteritis and colitis, unspecified] Onset: 03-28-2018 Episodic Nonspecific chest pain (20 sources) Other chest pain; Translations: [Chest pain] Onset: 02-12-2018 02-14-2018 Episodic Nutritional deficiencies (3 sources) Iron deficiency; Translations: [Iron deficiency] Onset: 04-17-2024 04-17-2024 Episodic Other aftercare (4 sources) Other watcher [employer] (current) drug therapy; Translations: [Other watcher [employer] (current) drug therapy] Onset: 09-07-2021 Episodic Other endocrine disorders (20 sources) Diabetes insipidus; Translations: [Diabetes insipidus] Onset: 02-12-2018 Resolved: 12-30-2021 07-22-2016 Chronic Other endocrine disorders (20 sources) Dipsogenic diabetes insipidus; Translations: [Diabetes insipidus] Resolved: 12-30-2021 06-13-2017 Chronic Other gastrointestinal disorders (2 sources) Diarrhea, unspecified; Translations: [Diarrhea, unspecified] Onset: 02-12-2018 Episodic Other injuries and conditions due to external causes (2 sources) Unspecified injury of head, initial encounter; Translations: [Unspecified injury of head, initial encounter] Onset: 11-15-2024 Episodic Other lower respiratory disease (2 sources) Hypoxemia; Translations: [Hypoxemia] Onset: 02-12-2018 Episodic Other lower respiratory disease (20 sources) Dyspnea; Translations: [Dyspnea, unspecified] Onset: 03-03-2018 03-03-2018 Episodic Other lower respiratory disease (20 sources) Radiologic infiltrate of lung ; Translations: [Other nonspecific abnormal finding of lung field] Onset: 06-13-2017 06-13-2017 Episodic Other non-traumatic joint disorders (2 sources) Pain in right hip; Translations: [Pain in right hip] Onset: 11-03-2024 Episodic Other nutritional; endocrine; and metabolic disorders (20 sources) Psychogenic polydipsia; Translations: [Polydipsia] Onset: 10-09-2017 10-12-2017 Episodic Other nutritional; endocrine; and metabolic disorders (2 sources) Polydipsia; Translations: [Polydipsia] Onset: 10-13-2022 Episodic Other nutritional; endocrine; and metabolic disorders (2 sources) Adult failure to thrive; Translations: [Adult failure to thrive] Onset: 08-03-2024 Episodic Other screening for suspected conditions (not mental disorders or infectious disease) (19 sources) Encounter for screening for malignant neoplasm of colon; Translations: [Patient encounter status] Onset: 03-28-2018 Resolved: 04-27-2018 04-27-2018 Episodic Pneumonia (except that caused by tuberculosis or sexually transmitted disease) (20 sources) Pneumonia, unspecified organism; Translations: [Pneumonia] Onset: 06-11-2017 06-13-2017 Episodic Residual codes; unclassified (2 sources) Patient's noncompliance with other medical treatment and regimen; Translations: [Patient's noncompliance w oth medical treatment and regimen] Onset: 02-12-2018 Episodic Residual codes; unclassified (20 sources) Localized edema; Translations: [Localized edema] Onset: 01-11-2019 01-11-2019 Episodic Residual codes; unclassified (2 sources) Localized edema; Translations: [Localized edema] Onset: 03-04-2022 Episodic Residual codes; unclassified (20 sources) Edema of lower extremity; Translations: [Localized edema] Onset: 10-02-2024 10-02-2024 Episodic Residual codes; unclassified (2 sources) Altered mental status, unspecified; Translations: [Altered mental status, unspecified] Onset: 06-28-2024 Episodic Screening and history of mental health and substance abuse codes (2 sources) Personal history of nicotine dependence; Translations: [Personal history of nicotine dependence] Onset: 02-12-2018 Episodic Sprains and strains (20 sources) Strain of rotator cuff capsule; Translations: [Strain of muscle(s) and tendon(s) of the rotator cuff of unspecified shoulder, initial encounter] Onset: 11-03-2015 11-03-2015 Episodic Suicide and intentional self-inflicted injury (20 sources) Suicidal thoughts; Translations: [Suicidal ideations] Onset: 05-19-2018 05-22-2018 Episodic Unclassified (16 sources) Patient encounter status; Translations: [Screen for colon cancer] Resolved: 04-27-2018 04-27-2018 Unclassified (2 sources) Closed fracture of shaft of fifth metacarpal bone of left hand 12-28-2024 Unclassified (2 sources) Acute pain of left knee 12-29-2024 Unclassified (1 source) Problems related to health literacy; Translations: [Problems related to health literacy] Onset: 12-25-2024 Results Test Name Value Interpretation Reference Range Facility [id number] 03-15-2025 [id number] Normal [facility] [id number] Normal [facility] [id number] Normal [facility] [id number] Normal [facility] Laboratory - Chemistry and C hemistry - challengeon 03-15-2025 Albumin [Mass/Vol] 2.9 g/dL Low 3.5 - 5.0 g/dL [facility] Anion gap [Moles/Vol] 11 mmol/L 3 - 13 mmol/L [facility] Calcium [Mass/Vol] 9.1 mg/dL 8.4 - 10. 2 mg/dL [facility] Chloride [Moles/Vol] 100 mmol/L 98 - 10 7 mmol/L [facility] CO2 [Moles/Vol] 21 mmol/L Low 22 - 29 mmol/L [facility] Creatinine [Mass/Vol] 2.69 mg/dL High 0.57 - 1.11 mg/dL [facility] GFR/1.73 sq M.predicted (S/P/Bld) [Vol rate/Area] 20 mL/min Low - PINF [facility] Comment on above: Calculation based on the Chronic Kidney Disease Epidemiology Collaboration (CKD-EPI) equation refit without adjustment for race Glucose [Mass/Vol] 78 mg/dL 74 - 100 mg/dL [facility] Phosphate [Mass/Vol] 5.5 mg/dL High 2.3 - 4 .7 mg/dL [facility] Potassium [Moles/Vol] 4.7 mmol/L 3.5 - 5.1 mmol/L [facility] Comment on above: Plasma potassium [place] ues may be up to 0.5 mmol/L lower than serum values. Sodium [Moles/Vol] 132 mmol/L Low 136 - 145 mmol/L [facility] Urea nitrogen [Mass/Vol] 53 mg/dL High 9 - 23 mg/dL [facility] No Panel Informationon 03-15 Interpretation and review of laboratory results Abnormal [facility] Nursing Noteon 03-15-2025 Nursing Note Report called and gi pancho to the nurse at the facility Normal [facility] Progress Noteon 03-15-2025 Progress Note Normal [facility] Progress Note Normal [facility] RENAL FUNCTION PANELon 03-15 Albumin [Mass/Vol] 2.9 g/dL Low 3.5-5.0 [facility] Comment on above: Performed By: #### L [id number] ####Pin Setter: JULI JONES ([id number])[facility] [place] [address] [place] Anion gap [Moles/Vol] 11 mmol/L Normal 3-13 [facility] Comment on above: Performed By: #### L [id number] ####Pin Setter: JULI JONES ([id number])[facility] ([facility])[address] [place] [address] Calcium [Mass/Vol] 9.1 mg/dL Normal 8.4-10.2 [facility] Comment on above: Performed By: #### L [id number] ####Pin Setter: JULI JONES ([id number])[facility])[address] [place] [address] [place] Chloride [Moles/Vol] 100 mmol/L Normal 98-107 [facility] Comment on above: Performed By: #### L [id number] ####Pin Setter: JULI JONES ([id number])[facility] ([facility])[address] [place] [address] [place] CO2 [Moles/Vol] 21 mmol/L Low 22-29 [facility] Comment on above: Performed By: #### L [id number] ####Pin Setter: JULI JONES ([id number])[facility] ([facility])[address] [place] [address] [place] Creatinine [Mass/Vol] 2.69 mg/dL High 0.57-1.11 [facility] Comment on above: Performed By: #### L AB19 ####Pin Setter: JULI JONES ([id number])[facility] ([facility])[address] [place] [address] [place] GLOMERULAR FILTRATION RATE ML/MIN/1.73 SQ M.PREDICTED 20.0 mL/min/1.73m*2 Low >60.0 [facility] Comment on above: Result Comment: Calc ulation based on the Chronic Kidney Disease Epidemiology Collaboration (CKD-EPI) equation refit without adjustment for race Performed By: #### L [id number] ####Pin Setter: JULI JONES ([id number])[facility] ([facility])[address] [place] [address] Glucose [Mass/Vol] 78 mg/dL Normal 74-100 [facility] Comment on above: Performed By: #### L AB19 ####Pin Setter: JULI JONES ([id number])[facility])[address] [place] [address] Phosphate [Mass/Vol] 5.5 mg/dL High 2.3-4.7 [facility] Comment on above: Performed By: #### L AB19 ####Pin Setter: JULI JONES ([id number])[facility])[address] [place] [address] Potassium [Moles/Vol] 4.7 mmol/L Normal 3.5-5.1 [facility] Comment on above: Result Comment: [facility] potassium values may be up to 0.5 mmol/L lower than serum values. Performed By: #### L AB19 ####Pin Setter: JULI JONES ([id number])[facility] ([facility])[address] [place] [address] Sodium [Moles/Vol] 132 mmol/L Low 136-145 [facility] Comment on above: Performed By: #### L [id number] ####Pin Setter: JULI JONES ([id number])[facility])[address] [place] [address] [place] Urea nitrogen [Mass/Vol] 53 mg/dL High 9-23 [facility] Comment on above: Performed By: #### L [id number] ####Pin Setter: JULI JONES ([id number])[facility])[address] [place] [address] [id number] 03-14-2025 [id number] [employer] , auth approved. Secure chat Dr Hayes, says patient will be ready tmw. Normal [facility] [id number] Normal [facility] Laboratory - Chemistry and C hemistry - challengeon 03-14-2025 Albumin [Mass/Vol] 2.7 g/dL Low 3.5 - 5.0 g/dL [facility] Anion gap [Moles/Vol] 10 mmol/L 3 - 13 mmol/L [facility] Calcium [Mass/Vol] 8.9 mg/dL 8.4 - 10. 2 mg/dL [facility] Chloride [Moles/Vol] 101 mmol/L 98 - 10 7 mmol/L [facility] CO2 [Moles/Vol] 22 mmol/L 22 - 29 mmol/L [facility] Creatinine [Mass/Vol] 2.67 mg/dL High 0.57 - 1.11 mg/dL [facility] GFR/1.73 sq M.predicted (S/P/Bld) [Vol rate/Area] 20.1 mL/min Low - PINF [facility] Comment on above: Calculation based on the Chronic Kidney Disease Epidemiology Collaboration (CKD-EPI) equation refit without adjustment for race Glucose [Mass/Vol] 76 mg/dL 74 - 100 mg/dL [facility] Phosphate [Mass/Vol] 5.3 mg/dL High 2.3 - 4 .7 mg/dL [facility] Potassium [Moles/Vol] 4.4 mmol/L 3.5 - 5.1 mmol/L [facility] Comment on above: Plasma potassium [place] may be up to 0.5 mmol/L lower than serum values. Sodium [Moles/Vol] 133 mmol/L Low 136 - 145 mmol/L [facility] Urea nitrogen [Mass/Vol] 43 mg/dL High 9 - 23 mg/dL [facility] No Panel Informationon 03-14 Interpretation and review of laboratory results Abnormal [facility] Progress Noteon 03-14-2025 Progress Note Normal [facility] Progress Note Normal [facility] Progress Note Normal [facility] RENAL FUNCTION PANELon 03-14 Albumin [Mass/Vol] 2.7 g/dL Low 3.5-5.0 [facility] Comment on above: Performed By: #### L [id number] ####Pin Setter: JULI JONES ([id number])[facility])[address] [place] [address] Anion gap [Moles/Vol] 10 mmol/L Normal 3-13 [facility] Comment on above: Performed By: #### L [id number] ####Pin Setter: JULI JONES ([id number])[facility] ([facility])[address] [place] [address] Calcium [Mass/Vol] 8.9 mg/dL Normal 8.4-10.2 [facility] Comment on above: Performed By: #### L AB19 ####Pin Setter: JULI JONES ([id number])[facility] ([facility])[address] [place] [address] Chloride [Moles/Vol] 101 mmol/L Normal 98-107 [facility] Comment on above: Performed By: #### L AB19 ####Pin Setter: JULI JONES ([id number])[facility] ([facility])[address] [place] [address] CO2 [Moles/Vol] 22 mmol/L Normal 22-29 [facility] Comment on above: Performed By: #### L [id number] ####Pin Setter: JULI JONES ([id number])[facility])[address] [place] [address] Creatinine [Mass/Vol] 2.67 mg/dL High 0.57-1.11 [facility] Comment on above: Performed By: #### L AB19 ####Pin Setter: JULI JONES ([id number])[facility])[address] [place] [address] GLOMERULAR FILTRATION RATE ML/MIN/1.73 SQ M.PREDICTED 20.1 mL/min/1.73m*2 Low >60.0 [facility] Comment on above: Result Comment: Calc ulation based on the Chronic Kidney Disease Epidemiology Collaboration (CKD-EPI) equation refit without adjustment for race Performed By: #### L [id number] ####Pin Setter: JULI JONES ([id number])[facility])[address] [place] [address] Glucose [Mass/Vol] 76 mg/dL Normal 74-100 [facility] Comment on above: Performed By: #### L [id number] ####Pin Setter: JULI JONES ([id number])[facility])[address] [place] [address] Phosphate [Mass/Vol] 5.3 mg/dL High 2.3-4.7 [facility] Comment on above: Performed By: #### L AB19 ####Pin Setter: JULI JONES ([id number])[facility])[address] [place] [address] Potassium [Moles/Vol] 4.4 mmol/L Normal 3.5-5.1 [facility] Comment on above: Result Comment: [facility] potassium values may be up to 0.5 mmol/L lower than serum values. Performed By: #### L AB19 ####Pin Setter: JULI JONES ([id number])[facility])[address] [place] [address] Sodium [Moles/Vol] 133 mmol/L Low 136-145 [facility] Comment on above: Performed By: #### L AB19 ####Pin Setter: JULI JONES ([id number])[facility])[address] [place] [address] Urea nitrogen [Mass/Vol] 43 mg/dL High 9-23 [facility] Comment on above: Performed By: #### L AB19 ####Pin Setter: JULI JONES ([id number])[facility])[address] [place] [address] [id number] 03-13-2025 [id number] Normal [facility] Laboratory - Chemistry and C hemistry - challengeon 03-13-2025 Albumin [Mass/Vol] 2.5 g/dL Low 3.5 - 5.0 g/dL [facility] Anion gap [Moles/Vol] 7 mmol/L 3 - 13 mmol/L [facility] Calcium [Mass/Vol] 8.5 mg/dL 8.4 - 10. 2 mg/dL [facility] Chloride [Moles/Vol] 100 mmol/L 98 - 10 7 mmol/L [facility] CO2 [Moles/Vol] 25 mmol/L 22 - 29 mmol/L [facility] [facility] Creatinine [Mass/Vol] 2.55 mg/dL High 0.57 - 1.11 mg/dL [facility] GFR/1.73 sq M.predicted (S/P/Bld) [Vol rate/Area] 21.3 mL/min Low - PINF [facility] Comment on above: Calculation based on the Chronic Kidney Disease Epidemiology Collaboration (CKD-EPI) equation refit without adjustment for race Glucose [Mass/Vol] 95 mg/dL 74 - 100 mg/dL [facility] Phosphate [Mass/Vol] 5.2 mg/dL High 2.3 - 4 .7 mg/dL [facility] Potassium [Moles/Vol] 4.5 mmol/L 3.5 - 5.1 mmol/L [facility] Comment on above: Plasma potassium batsheva ues may be up to 0.5 mmol/L lower than serum values. Sodium [Moles/Vol] 132 mmol/L Low 136 - 145 mmol/L [facility] Urea nitrogen [Mass/Vol] 43 mg/dL High 9 - 23 mg/dL [facility] No Panel Informationon 03-13 Interpretation and review of laboratory results Abnormal [facility] Progress Noteon 03-13-2025 Progress Note Normal [facility] Progress Note Normal [facility] Progress Note Normal [facility] Progress Note Normal [facility] RENAL FUNCTION PANELon 03-13 Albumin [Mass/Vol] 2.5 g/dL Low 3.5-5.0 [facility] Comment on above: Performed By: #### L [id number] ####Pin Setter: JULI JONES ([id number])[facility] ([id number] Anion gap [Moles/Vol] 7 mmol/L Normal 3-13 [facility] Comment on above: Performed By: #### L [id number] ####Pin Setter: JULI JONES ([id number])[facility] ([facility])[address] [place] [address] Calcium [Mass/Vol] 8.5 mg/dL Normal 8.4-10.2 [facility] Comment on above: Performed By: #### L [id number] ####Pin Setter: JULI JONES ([id number])[facility] ([facility])[address] [place] [address] [place] Chloride [Moles/Vol] 100 mmol/L Normal 98-107 [facility] Comment on above: Performed By: #### L [id number] ####Pin Setter: JULI JONES ([id number])[facility] ([facility])[address] [place] [address] CO2 [Moles/Vol] 25 mmol/L Normal 22-29 [facility] Comment on above: Performed By: #### L [id number] ####Pin Setter: JULI JONES ([id number])[facility] ([facility])[address] [place] [address] Creatinine [Mass/Vol] 2.55 mg/dL High 0.57-1.11 [facility] Comment on above: Performed By: #### L [id number] ####Pin Setter: JULI JONES ([id number])[facility] ([facility])[address] [place] [address] GLOMERULAR FILTRATION RATE ML/MIN/1.73 SQ M.PREDICTED 21.3 mL/min/1.73m*2 Low >60.0 [facility] Comment on above: Result Comment: Calc ulation based on the Chronic Kidney Disease Epidemiology Collaboration (CKD-EPI) equation refit without adjustment for race Performed By: #### L [id number] ####Pin Setter: JULI JONES ([id number])[facility] ([facility])[address] [place] [address] [place] Glucose [Mass/Vol] 95 mg/dL Normal 74-100 [facility] Comment on above: Performed By: #### L [id number] ####Pin Setter: JULI JONES ([id number])[facility] [place] [address] Phosphate [Mass/Vol] 5.2 mg/dL High 2.3-4.7 [facility] Comment on above: Performed By: #### L [id number] ####Pin Setter: JULI JONES ([id number])[facility] ([facility])[address] [place] [address] Potassium [Moles/Vol] 4.5 mmol/L Normal 3.5-5.1 [facility] Comment on above: Result Comment: [facility] potassium values may be up to 0.5 mmol/L lower than serum values. Performed By: #### L [id number] ####Pin Setter: JULI JONES ([id number])[facility] ([facility])[address] [place] [address] Sodium [Moles/Vol] 132 mmol/L Low 136-145 [facility] Comment on above: Performed By: #### L [id number] ####Pin Setter: JULI JONES ([id number])[facility] ([facility])[address] [place] [address] Urea nitrogen [Mass/Vol] 43 mg/dL High 9-23 [facility] Comment on above: Performed By: #### L [id number] ####Pin Setter: JULI JONES ([id number])[facility])[address] [place] [address] [id number] 03-12-2025 [id number] Normal [facility] Laboratory - Chemistry and C hemistry - challengeon 03-12-2025 Immunoglobulin light chains.kappa.free (S) [Mass/Vol] 115.0 mg/L High 3.3 - 19.4 mg/L [facility] Immunoglobulin light chains.kappa.free/Immu noglobulin light chains.lambda.free (S) [Mass ratio] 0.70 0.26 - 1.65 [facility] Comment on above: Free kappa/lambda ratio in serum of normal individuals is 0.26-1.65. Excess production of free kappa or lambda chains can alter the ratio. Monoclonal free light chains are found in the serum of patients with multiple myeloma, Waldenstrom's macroglobulinemia, mu-heavy chain disease, primary amyloidosis, light chain deposition disease, monoclonal gammopathy of undetermined significance, and lymphoproliferative disorders. Measurement of free light chain concen- tration in serum is useful for diagnosis, prognosis, monitoring disease activity and following response to therapy of these disorders. Test Performed by [facility], [employer] [facility], [address] [place] [address] Santhosh Murrieta M.D., Ph.D., Director of Laboratories , CLIA [id number] Immunoglobulin light chains.lambda.free [Mass/Vol] 164.0 mg/L High 5.7 - 26.3 mg/L [facility] [employer] Albumin [Mass/Vol] 2.7 g/dL Low 3.5 - 5.0 g/dL [facility] [employer] Anion gap [Moles/Vol] 10 mmol/L 3 - 13 mmol/L [facility] [employer] Calcium [Mass/Vol] 9 mg/dL 8.4 - 10. 2 mg/dL [facility] [employer] Chloride [Moles/Vol] 103 mmol/L 98 - 10 7 mmol/L [facility] [employer] CO2 [Moles/Vol] 20 mmol/L Low 22 - 29 mmol/L [facility] [employer] Creatinine [Mass/Vol] 2.23 mg/dL High 0.57 - 1.11 mg/dL [facility] [employer] GFR/1.73 sq M.predicted (S/P/Bld) [Vol rate/Area] 25 mL/min Low - PINF [facility] [employer] Comment on above: Calculation based on the Chronic Kidney Disease Epidemiology Collaboration (CKD-EPI) equation refit without adjustment for race Glucose [Mass/Vol] 104 mg/dL High 74 - 100 mg/dL [facility] [employer] Phosphate [Mass/Vol] 4.8 mg/dL High 2.3 - 4 .7 mg/dL [facility] [employer] Potassium [Moles/Vol] 4.8 mmol/L 3.5 - 5.1 mmol/L [facility] [employer] Comment on above: Plasma potassium batsheva ues may be up to 0.5 mmol/L lower than serum values. Sodium [Moles/Vol] 133 mmol/L Low 136 - 145 mmol/L [facility] [employer] Urea nitrogen [Mass/Vol] 35 mg/dL High 9 - 23 mg/dL [facility] No Panel Informationon 03-12 Interpretation and review of laboratory results Abnormal [facility] Interpretation and review of laboratory results Abnormal [facility] No Panel InformationOrdered By: Melissa Castellon on 03-12-2025 EULALIA Normal Pattern [facility] [employer] Work Phone: RELEASED BY Melissa Castellon M.D., MPH [facility] [employer] Work Phone: REVIEWED BY Leana Cho MD [facility] [employer] Work Phone: [facility] Work Phone: Progress Noteon 03-12-2025 Progress Note Normal [facility] Progress Note OCCUPATIONAL THERAPY [facility] Name/MRN: Jessy Mckeon ([id number]) Date: 03/12/2025 Pt is currently refusing OT at this time. OT will re-attempt to see pt as schedule allows. JOCY Weaver Normal [facility] Progress Note Normal [facility] RENAL FUNCTION PANELon 03-12 Albumin [Mass/Vol] 2.7 g/dL Low 3.5-5.0 [facility] Comment on above: Performed By: #### L [id number] ####Pin Setter: JULI JONES ([id number])[facility])[address] [place] [address] Anion gap [Moles/Vol] 10 mmol/L Normal 3-13 [facility] Comment on above: Performed By: #### L [id number] ####Pin Setter: JULI JONES ([id number])[facility])[address] [place] [address] Calcium [Mass/Vol] 9.0 mg/dL Normal 8.4-10.2 [facility] Comment on above: Performed By: #### L [id number] ####Pin Setter: JULI JONES ([id number])[facility])[address] [place] [address] Chloride [Moles/Vol] 103 mmol/L Normal 98-107 [facility] Comment on above: Performed By: #### L [id number] ####Pin Setter: JULI JONES ([id number])[facility])[address] [place] [address] CO2 [Moles/Vol] 20 mmol/L Low 22-29 [facility] Comment on above: Performed By: #### L [id number] ####Pin Setter: JULI JONES ([id number])[facility])[address] [place] [address] Creatinine [Mass/Vol] 2.23 mg/dL High 0.57-1.11 [facility] Comment on above: Performed By: #### L [id number] ####Pin Setter: JULI JONES ([id number])[facility])[address] [place] [address] GLOMERULAR FILTRATION RATE ML/MIN/1.73 SQ M.PREDICTED 25.0 mL/min/1.73m*2 Low >60.0 [facility] Comment on above: Result Comment: Calc ulation based on the Chronic Kidney Disease Epidemiology Collaboration (CKD-EPI) equation refit without adjustment for race Performed By: #### L [id number] ####Pin Setter: JULI JONES ([id number])[facility])[address] [place] [address] Glucose [Mass/Vol] 104 mg/dL High 74-100 [facility] Comment on above: Performed By: #### L [id number] ####Pin Setter: JULI JONES ([id number])[facility])[address] [place] [address] [place] Phosphate [Mass/Vol] 4.8 mg/dL High 2.3-4.7 [facility] Comment on above: Performed By: #### L [id number] ####Pin Setter: JULI JONES ([id number])[facility])[address] [place] [address] Potassium [Moles/Vol] 4.8 mmol/L Normal 3.5-5.1 [facility] Comment on above: Result Comment: [facility] potassium values may be up to 0.5 mmol/L lower than serum values. Performed By: #### L [id number] ####Pin Setter: JULI JONES ([id number])[facility])[address] [place] [address] Sodium [Moles/Vol] 133 mmol/L Low 136-145 [facility] Comment on above: Performed By: #### L [id number] ####Pin Setter: JULI JONES ([id number])[facility])[address] [place] [address] Urea nitrogen [Mass/Vol] 35 mg/dL High 9-23 [facility] Comment on above: Performed By: #### L [id number] ####Pin Setter: JULI JONES ([id number])[facility])[address] [place] [address] [id number] 03-11-2025 [id number] created in HENS per TCC request. Facility notified via [employer]. [facility] [phone] Task ATHLETIC GEAR CUSTODIAN to send [phone] to [facility]. Secure chat Dr Tucker to complete IRASEMA. [facility] [phone] Secure chat from Dr Tucker to start auth. Told [employer] to start auth. [facility] [phone] Normal [facility] IG CONCENTRATION, BLOOD (IMM UNOFIXATION ELECTROPHORESIS)on 03-11-2025 IGA, BLOOD 174 mg/dL Normal 65-450 [facility] Comment on above: Performed By: #### L [id number] ####Pin Setter: JULI JONES ([id number])[facility])[address] [place] [address] IGG, BLOOD 1576 mg/dL Normal 540-1722 [facility] Comment on above: Performed By: #### L [id number] ####Pin Setter: JULI JONES ([id number])[facility] ([facility])[address] [place] [address] IGM, BLOOD 110 mg/dL Normal 25-265 [facility] Comment on above: Performed By: #### L [id number] ####Pin Setter: JULI JONES ([id number])[facility] ([facility])[address] [place] [address] IMMUNOFIXATION ELECTROPHORES Sherry 03-11-2025 IMMUNOFIXATION ELECTROPHORESIS Normal Pattern Normal [facility] Comment on above: Performed By: #### L [id number] ####Pin Setter: JULI JONES ([id number])[facility] ([facility])[address] [place] [address] RELEASED BY Melissa Castellon M.D., MPH [facility] Comment on above: Performed By: #### L [id number] ####Pin Setter: JULI JONES ([id number])[facility] ([facility])[address] [place] [address] REVIEWED BY Leana Cho MD [facility] Comment on above: Performed By: #### L [id number] ####Pin Setter: JULI JONES ([id number])[facility] ([facility])[address] [place] [address] K/L QNT FREE LIGHT CHAINS WI TH RATIO (BKR QUEST)on 03-11-2025 QUEST KAPPA LIGHT CHAIN, FREE, SERUM 115.0 mg/L High 3.3-19.4 [facility] Comment on above: Performed By: #### L [id number] ####[facility] (AMDBEAKER)[id number] [place] [facility] QUEST KAPPA/LAMBDA LIGHT CHAINS FREE WITH RATIO, SERUM 0.70 Normal 0.26-1.65 [facility] Comment on above: Result Comment: Free kappa/lambda ratio in serum of normal individualsis 0.26-1.65. Excess production of free kappa orlambda chains can alter the ratio. Monoclonal freelight chains are found in the serum of patients withmultiple myeloma, Waldenstrom's macroglobulinemia,mu-heavy chain disease, primary amyloidosis, lightchain deposition disease, monoclonal gammopathy ofundetermined significance, and lymphoproliferativedisorders. Measurement of free light chain concen-tration in serum is useful for diagnosis, prognosis,monitoring disease activity and following response totherapy of these disorders.Test Performed by [employer] [place],[employer] [facility],[address] [place] [address] [id number] Murrieta M.D., Ph.D., Director of [phone], CLIA [id number] Performed By: #### L [id number] ####[facility] ([employer])[id number] [place] [facility] LAMBDA LIGHT CHAIN, FREE, SERUM 164.0 mg/L High 5.7-26.3 [facility] [employer] [facility] Comment on above: Performed By: #### L [id number] ####Progression ([employer])[id number] [place] [facility] Laboratory - Chemistry and C hemistry - challengeon 03-11-2025 IgA [Mass/Vol] 174 mg/dL 65 - 450 mg/dL [facility] [employer] IgG [Mass/Vol] 1576 mg/dL 540 - 1722 mg/dL [facility] [employer] IgM [Mass/Vol] 110 mg/dL 25 - 265 mg/dL [facility] Albumin [Mass/Vol] 2.7 g/dL Low 3.5 - 5.0 g/dL [facility] [employer] Anion gap [Moles/Vol] 8 mmol/L 3 - 13 mmol/L [facility] [employer] Calcium [Mass/Vol] 8.5 mg/dL 8.4 - 10. 2 mg/dL [facility] [employer] Chloride [Moles/Vol] 99 mmol/L 98 - 10 7 mmol/L [facility] [employer] CO2 [Moles/Vol] 25 mmol/L 22 - 29 mmol/L [facility] Creatinine [Mass/Vol] 2.15 mg/dL High 0.57 - 1.11 mg/dL [facility] GFR/1.73 sq M.predicted (S/P/Bld) [Vol rate/Area] 26.1 mL/min Low - PINF [facility] Comment on above: Calculation based on the Chronic Kidney Disease Epidemiology Collaboration (CKD-EPI) equation refit without adjustment for race Glucose [Mass/Vol] 75 mg/dL 74 - 100 mg/dL [facility] Phosphate [Mass/Vol] 4.6 mg/dL 2.3 - 4 .7 mg/dL [facility] Potassium [Moles/Vol] 4.4 mmol/L 3.5 - 5.1 mmol/L [facility] Sodium [Moles/Vol] 132 mmol/L Low 136 - 145 mmol/L [facility] Urea nitrogen [Mass/Vol] 33 mg/dL High 9 - 23 mg/dL [facility] Laboratory - Chemistry and C hemistry - challengeOrdered By: Johnny Macdonald on 03-11-2025 Osmolality [Osmolality] 291 mosm/kg [facility] No Panel Informationon 03-11 Interpretation and review of laboratory results Normal [facility] Interpretation and review of laboratory results Abnormal [facility] No Panel InformationOrdered By: Johnny Macdonald on 03-11-2025 Interpretation and review of laboratory results Normal [facility] Nursing Noteon 03-11-2025 Nursing Note Normal [facility] OSMOLALITY, SERUMon 03-11-20 25 OSMOLALITY, SERUM 291 mOsm/kg Normal 280-300 [facility] Comment on above: Order Comment: Chidi flores collect and send urine and serum labs together Performed By: #### L [id number] ####Pin Setter: JULI JONES ([id number])[address] Progress Noteon 03-11-2025 Progress Note Normal [facility] Progress Note Normal [facility] Progress Note Normal [facility] RENAL FUNCTION PANELon 03-11 Albumin [Mass/Vol] 2.7 g/dL Low 3.5-5.0 [facility] Comment on above: Performed By: #### L [id number] ####Pin Setter: JULI JONES ([id number])[facility] [place] [address] Anion gap [Moles/Vol] 8 mmol/L Normal 3-13 [facility] Comment on above: Performed By: #### L [id number] ####Pin Setter: JULI JONES ([id number])[facility] ([facility])[address] [place] [address] Calcium [Mass/Vol] 8.5 mg/dL Normal 8.4-10.2 [facility] Comment on above: Performed By: #### L [id number] ####Pin Setter: JULI JONES ([id number])[facility] ([facility])[address] [place] [address] [place] Chloride [Moles/Vol] 99 mmol/L Normal 98-107 [facility] Comment on above: Performed By: #### L [id number] ####Pin Setter: JULI JONES ([id number])[facility])[address] [place] [address] CO2 [Moles/Vol] 25 mmol/L Normal 22-29 [facility] Comment on above: Performed By: #### L [id number] ####Pin Setter: JULI JONES ([id number])[facility] ([facility])[address] [place] [address] Creatinine [Mass/Vol] 2.15 mg/dL High 0.57-1.11 [facility] Comment on above: Performed By: #### L [id number] ####Pin Setter: JULI JONES ([id number])[facility])[address] [place] [address] [place] GLOMERULAR FILTRATION RATE ML/MIN/1.73 SQ M.PREDICTED 26.1 mL/min/1.73m*2 Low >60.0 [facility] Comment on above: Result Comment: Calc ulation based on the Chronic Kidney Disease Epidemiology Collaboration (CKD-EPI) equation refit without adjustment for race Performed By: #### L [id number] ####Pin Setter: JULI JONES ([id number])[facility])[address] [place] [address] Glucose [Mass/Vol] 75 mg/dL Normal 74-100 [facility] Comment on above: Performed By: #### L [id number] ####Pin Setter: JULI [id number])[facility] [place] [address] Phosphate [Mass/Vol] 4.6 mg/dL Normal 2.3-4.7 [facility] Comment on above: Performed By: #### L [id number] ####Pin Setter: JULI JONES ([id number])[facility] ([facility])[address] [place] [address] Potassium [Moles/Vol] 4.4 mmol/L Normal 3.5-5.1 [facility] Comment on above: Performed By: #### L [id number] ####Pin Setter: JULI JONES ([id number])[facility] ([facility])[address] [place] [address] Sodium [Moles/Vol] 132 mmol/L Low 136-145 [facility] Comment on above: Performed By: #### L [id number] ####Pin Setter: JULI JONES ([id number])[facility] ([facility])[address] [place] [address] Urea nitrogen [Mass/Vol] 33 mg/dL High 9-23 [facility] Comment on above: Performed By: #### L [id number] ####Pin Setter: JULI JONES ([id number])[facility] ([facility])[address] [place] [address] Laboratory - Chemistry and C hemistry - challengeOrdered By: Meera Tucker on 03-10-2025 Osmolality [Osmolality] 289 mosm/kg [facility] Laboratory - Chemistry and C hemistry - challengeon 03-10-2025 Albumin [Mass/Vol] 2.6 g/dL Low 3.5 - 5.0 g/dL [facility] Anion gap [Moles/Vol] 10 mmol/L 3 - 13 mmol/L [facility] Calcium [Mass/Vol] 8.7 mg/dL 8.4 - 10. 2 mg/dL [facility] Chloride [Moles/Vol] 99 mmol/L 98 - 10 7 mmol/L [facility] CO2 [Moles/Vol] 22 mmol/L 22 - 29 mmol/L [facility] Creatinine [Mass/Vol] 2.18 mg/dL High 0.57 - 1.11 mg/dL [facility] GFR/1.73 sq M.predicted (S/P/Bld) [Vol rate/Area] 25.7 mL/min Low - PINF [facility] Comment on above: Calculation based on the Chronic Kidney Disease Epidemiology Collaboration (CKD-EPI) equation refit without adjustment for race Glucose [Mass/Vol] 74 mg/dL 74 - 100 mg/dL [facility] Phosphate [Mass/Vol] 4.2 mg/dL 2.3 - 4 .7 mg/dL [facility] Potassium [Moles/Vol] 5.1 mmol/L 3.5 - 5.1 mmol/L [facility] Comment on above: Plasma potassium batsheva ues may be up to 0.5 mmol/L lower than serum values. Sodium [Moles/Vol] 131 mmol/L Low 136 - 145 mmol/L [facility] Urea nitrogen [Mass/Vol] 29 mg/dL High 9 - 23 mg/dL [facility] No Panel InformationOrdered By: Meera Tucker on 03-10-2025 Interpretation and review of laboratory results Normal [facility] No Panel Informationon 03-10 Interpretation and review of laboratory results Abnormal [facility] OSMOLALITY, SERUMon 03-10-20 25 OSMOLALITY, SERUM 289 mOsm/kg Normal 280-300 [facility] Comment on above: Order Comment: Chidi flores collect and send urine and serum labs together Performed By: #### L [id number] ####Pin Setter: JULI JONES ([id number])[facility] ([facility])[address] [place] [address] Progress Noteon 03-10-2025 Progress Note Normal [facility] Progress Note Normal [facility] Progress Note Normal [facility] RENAL FUNCTION PANELon 03-10 Albumin [Mass/Vol] 2.6 g/dL Low 3.5-5.0 [facility] Comment on above: Performed By: #### L [id number] ####Pin Setter: JULI JONES ([id number])[facility] ([facility])[address] [place] [address] Anion gap [Moles/Vol] 10 mmol/L Normal 3-13 [facility] Comment on above: Performed By: #### L [id number] ####Pin Setter: JULI JONES ([id number])[facility] ([facility])[address] [place] [address] Calcium [Mass/Vol] 8.7 mg/dL Normal 8.4-10.2 [facility] Comment on above: Performed By: #### L [id number] ####Pin Setter: JULI JONES ([id number])[facility] ([facility])[address] [place] [address] Chloride [Moles/Vol] 99 mmol/L Normal 98-107 [facility] Comment on above: Performed By: #### L [id number] ####Pin Setter: JULI JONES ([id number])[facility])[address] [place] [address] CO2 [Moles/Vol] 22 mmol/L Normal 22-29 [facility] Comment on above: Performed By: #### L [id number] ####Pin Setter: JULI JONES ([id number])[facility] ([facility] [facility] [place] [address] Creatinine [Mass/Vol] 2.18 mg/dL High 0.57-1.11 [facility] Comment on above: Performed By: #### L AB19 ####Pin Setter: JULI JONES ([id number])[facility] ([facility])[address] [place] [address] GLOMERULAR FILTRATION RATE ML/MIN/1.73 SQ M.PREDICTED 25.7 mL/min/1.73m*2 Low >60.0 [facility] Comment on above: Result Comment: Calc ulation based on the Chronic Kidney Disease Epidemiology Collaboration (CKD-EPI) equation refit without adjustment for race Performed By: #### L AB19 ####Pin Setter: JULI JONES ([id number])[facility] ([facility])[address] [place] [address] [place] Glucose [Mass/Vol] 74 mg/dL Normal 74-100 [facility] Comment on above: Performed By: #### L AB19 ####Pin Setter: JULI JONES ([id number])[facility] [place] [address] Phosphate [Mass/Vol] 4.2 mg/dL Normal 2.3-4.7 [facility] Comment on above: Performed By: #### L AB19 ####Pin Setter: JULI JONES ([id number])[facility] [place] [address] Potassium [Moles/Vol] 5.1 mmol/L Normal 3.5-5.1 [facility] Comment on above: Result Comment: [facility] potassium values may be up to 0.5 mmol/L lower than serum values. Performed By: #### L AB19 ####Pin Setter: JULI JONES ([id number])[facility] ([facility])[address] [place] [address] Sodium [Moles/Vol] 131 mmol/L Low 136-145 [facility] Comment on above: Performed By: #### L AB19 ####Pin Setter: JULI JONES ([id number])[facility] ([facility])[address] [place] [address] Urea nitrogen [Mass/Vol] 29 mg/dL High 9-23 [facility] Comment on above: Performed By: #### L AB19 ####Pin Setter: JULI JONES ([id number])[facility] ([facility])[address] [place] [address] BASIC METABOLIC PANELon 07-2 -2024 Anion gap [Moles/Vol] 8 mmol/L Normal 3-13 [facility] Comment on above: Performed By: #### L AB15, LAB18 ####Pin Setter: JULI JONES ([id number])[facility] ([facility])[address] [place] [address] Calcium [Mass/Vol] 8.5 mg/dL Normal 8.4-10.2 [facility] Comment on above: Performed By: #### L AB15, LAB18 ####Pin Setter: JULI JONES ([id number])[facility] [place] [address] [place] Chloride [Moles/Vol] 100 mmol/L Normal 98-107 [facility] Comment on above: Performed By: #### L AB15, LAB18 ####Pin Setter: JULI JONES ([id number])[facility])[address] [place] [address] CO2 [Moles/Vol] 22 mmol/L Normal 22-29 [facility] Comment on above: Performed By: #### L AB15, LAB18 ####Pin Setter: JULI JONES ([id number])[facility])[address] [place] [address] Creatinine [Mass/Vol] 2.09 mg/dL High 0.57-1.11 [facility] Comment on above: Performed By: #### L AB15, LAB18 ####Pin Setter: JULI JONES ([id number])[facility])[address] [place] [address] GLOMERULAR FILTRATION RATE ML/MIN/1.73 SQ M.PREDICTED 27.0 mL/min/1.73m*2 Low >60.0 [facility] Comment on above: Result Comment: Calc ulation based on the Chronic Kidney Disease Epidemiology Collaboration (CKD-EPI) equation refit without adjustment for race Performed By: #### L AB15, LAB18 ####Pin Setter: JULI JONES ([id number])[facility])[address] [place] [address] [place] Glucose [Mass/Vol] 80 mg/dL Normal 74-100 [facility] Comment on above: Performed By: #### L AB15, LAB18 ####Pin Setter: JULI JONES ([id number])[facility])[address] [place] [address] Potassium [Moles/Vol] 4.9 mmol/L Normal 3.5-5.1 [facility] Comment on above: Result Comment: [facility] potassium values may be up to 0.5 mmol/L lower than serum values. Performed By: #### L AB15, LAB18 ####Pin Setter: JULI JONES ([id number])[facility] ([facility])[address] [place] [address] Sodium [Moles/Vol] 130 mmol/L Low 136-145 [facility] Comment on above: Performed By: #### L AB15, LAB18 ####Pin Setter: JULI JONES ([id number])[facility] ([facility])[address] [place] [address] Urea nitrogen [Mass/Vol] 22 mg/dL Normal 9-23 [facility] Comment on above: Performed By: #### L AB15, LAB18 ####Pin Setter: JULI JONES ([id number])[facility])[address] [place] [address] Basic metabolic 1998 panelon 03-09-2025 Anion gap [Moles/Vol] 8 mmol/L 3 - 13 mmol/L [facility] Calcium [Mass/Vol] 8.5 mg/dL 8.4 - 10. 2 mg/dL [facility] Chloride [Moles/Vol] 100 mmol/L 98 - 10 7 mmol/L [facility] CO2 [Moles/Vol] 22 mmol/L 22 - 29 mmol/L [facility] Creatinine [Mass/Vol] 2.09 mg/dL High 0.57 - 1.11 mg/dL [facility] GFR/1.73 sq M.predicted (S/P/Bld) [Vol rate/Area] 27 mL/min Low - PINF [facility] Comment on above: Calculation based on the Chronic Kidney Disease Epidemiology Collaboration (CKD-EPI) equation refit without adjustment for race Glucose [Mass/Vol] 80 mg/dL 74 - 100 mg/dL [facility] Interpretation and review of laboratory results Abnormal [facility] Potassium [Moles/Vol] 4.9 mmol/L 3.5 - 5.1 mmol/L [facility] Comment on above: Plasma potassium bats[place] ues may be up to 0.5 mmol/L lower than serum values. Sodium [Moles/Vol] 130 mmol/L Low 136 - 145 mmol/L [facility] Urea nitrogen [Mass/Vol] 22 mg/dL 9 - 23 mg/dL [facility] LIPID PANELon 03-09-2025 Cholesterol [Mass/Vol] 116 mg/dL Normal <200 [facility] Comment on above: Performed By: #### L AB15, LAB18 ####Pin Setter: JULI JONES ([id number])[facility] ([facility])[address] [place] [address] [place] Cholesterol in HDL [Mass/Vol] 34 mg/dL Low >=60 [facility] Comment on above: Performed By: #### L AB15, LAB18 ####Pin Setter: JULI JONES ([id number])[facility] [place] [address] [place] Cholesterol.total/Chol esterol in HDL [Mass ratio] 3 {ratio} Normal [facility] Comment on above: Result Comment: Ref Range:< 3 Low Risk for CHD3-6 Mod Risk for CHD> 6 High Risk for CHD Performed By: #### Kesha MYRICK, LAB18 ####Pin Setter: JULI JONES ([id number])[facility] [place] [address] [place] LOW DENSITY LIPOPROTEIN 63 mg/dL Normal 0-<100 [facility] Comment on above: Performed By: #### Kesha PRAKASH15, LAB18 ####Pin Setter: JULI JONES ([id number])[facility] [place] [address] [place] NON-HDL CHOLESTEROL, CALCULATED 82 Normal <130 [facility] Comment on above: Performed By: #### L AB15, LAB18 ####Pin Setter: JULI JONES ([id number])[facility] [place] [address] [place] Triglyceride [Mass/Vol] 93 mg/dL Normal <150 [facility] Comment on above: Performed By: #### L AB15, LAB18 ####Pin Setter: JULI JONES ([id number])[facility] [place] [address] [place] VERY LOW DENSITY LIPOPROTEIN, CALCULATED 19 mg/dL Normal <=30 [facility] Comment on above: Performed By: #### L AB15, LAB18 ####Pin Setter: JULI JONES ([id number])[facility] ([facility])[address] [place] [address] Lipid 1996 panelon Cholesterol [Mass/Vol] 116 mg/dL NINF - 200 mg/dL [facility] Cholesterol in HDL [Mass/Vol] 34 mg/dL Low 60 - PINF mg/dL [facility] Cholesterol in LDL [Mass/Vol] 63 mg/dL 0 - <100 [facility] Cholesterol.total/Chol esterol in HDL [Mass ratio] 3 {ratio} [facility] Comment on above: Ref Range: < 3 Low Risk for CHD 3-6 Mod Risk for CHD > 6 High Risk for CHD Interpretation and review of laboratory results Abnormal [facility] NON-HDL CHOLESTEROL, CALCULATED 82 NINF - 130 [facility] Triglyceride [Mass/Vol] 93 mg/dL NINF - 150 mg/dL [facility] VERY LOW DENSITY LIPOPROTEIN, CALCULATED 19 mg/dL NINF - 30 mg/dL [facility] Progress Noteon 03-09-2025 Progress Note Normal [facility] Progress Note Normal [facility] 25-hydroxyvitamin D3 [Mass/V ol]on 03-08-2025 Interpretation and review of laboratory results Normal [facility] Target concentration : 30 - 40 ng/mL; toxicity seen at concentrations >100 ng/mL Less than 20 ng/mL: Indicative of Vit D deficiency Test performed by [employer], measuring Total Vitamin D, not individual fractions. [facility] [id number] 03-08-2025 [id number] Normal [facility] [id number] Accepted into [facility] [place]. Patient is happy. Normal [facility] [id number] Normal [facility] [id number] Normal [facility] BASIC METABOLIC PANELon 02-13 Anion gap [Moles/Vol] 3 mmol/L Normal 3-13 [facility] Comment on above: Performed By: #### L AB69, LAB67, LAB15 ####Pin Setter: JULI JONES ([id number])[facility] [place] [address] Calcium [Mass/Vol] 8.3 mg/dL Low 8.4-10.2 [facility] Comment on above: Performed By: #### L AB69, LAB67, LAB15 ####Pin Setter: JULI JONES ([id number])[facility] ([facility])[address] [place] [address] Chloride [Moles/Vol] 98 mmol/L Normal 98-107 [facility] Comment on above: Performed By: #### Kesha AB69, LAB67, LAB15 ####Pin Setter: JULI JONES ([id number])[facility])[address] [place] [address] CO2 [Moles/Vol] 24 mmol/L Normal 22-29 [facility] Comment on above: Performed By: #### Kesha RODRIGUEZ, LAB67, LAB15 ####Pin Setter: JULI JONES ([id number])[facility] ([facility])[address] [place] [address] Creatinine [Mass/Vol] 1.81 mg/dL High 0.57-1.11 [facility] Comment on above: Performed By: #### Kesha RODRIGUEZ, LAB67, LAB15 ####Pin Setter: JULI JONES ([id number])[facility] ([facility])[address] [place] [address] [place] GLOMERULAR FILTRATION RATE ML/MIN/1.73 SQ M.PREDICTED 32.1 mL/min/1.73m*2 Low >60.0 [facility] Comment on above: Result Comment: Calc ulation based on the Chronic Kidney Disease Epidemiology Collaboration (CKD-EPI) equation refit without adjustment for race Performed By: #### Kesha RODRIGUEZ, LAB67, LAB15 ####Pin Setter: JULI JONES ([id number])[facility])[address] [place] [address] [place] Glucose [Mass/Vol] 85 mg/dL Normal 74-100 [facility] Comment on above: Performed By: #### L ABBeau, LAB67, LAB15 ####Pin Setter: JULI JONES ([id number])[facility] ([facility])[address] [place] [address] Potassium [Moles/Vol] 4.4 mmol/L Normal 3.5-5.1 [facility] Comment on above: Result Comment: [facility] potassium values may be up to 0.5 mmol/L lower than serum values. Performed By: #### L AB69, LAB67, LAB15 ####Pin Setter: JULI JONES ([id number])[facility] ([facility])[address] [place] [address] Sodium [Moles/Vol] 125 mmol/L Low 136-145 [facility] Comment on above: Performed By: #### L AB69, LAB67, LAB15 ####Pin Setter: JULI JONES ([id number])[facility])[address] [place] [address] Urea nitrogen [Mass/Vol] 17 mg/dL Normal 9-23 [facility] Comment on above: Performed By: #### L AB69, LAB67, LAB15 ####Pin Setter: JULI JONES ([id number])[facility])[address] [place] [address] Basic metabolic 1998 panelon 03-08-2025 Anion gap [Moles/Vol] 3 mmol/L 3 - 13 mmol/L [facility] Calcium [Mass/Vol] 8.3 mg/dL Low 8.4 - 10. 2 mg/dL [facility] Chloride [Moles/Vol] 98 mmol/L 98 - 10 7 mmol/L [facility] CO2 [Moles/Vol] 24 mmol/L 22 - 29 mmol/L [facility] Creatinine [Mass/Vol] 1.81 mg/dL High 0.57 - 1.11 mg/dL [facility] GFR/1.73 sq M.predicted (S/P/Bld) [Vol rate/Area] 32.1 mL/min Low - PINF [facility] Comment on above: Calculation based on the Chronic Kidney Disease Epidemiology Collaboration (CKD-EPI) equation refit without adjustment for race Glucose [Mass/Vol] 85 mg/dL 74 - 100 mg/dL [facility] [employer] Potassium [Moles/Vol] 4.4 mmol/L 3.5 - 5.1 mmol/L [facility] Comment on above: Plasma potassium [place] ues may be up to 0.5 mmol/L lower than serum values. Sodium [Moles/Vol] 125 mmol/L Low 136 - 145 mmol/L [facility] Urea nitrogen [Mass/Vol] 17 mg/dL 9 - 23 mg/dL [facility] CBC W Auto Differential pane l (Bld)on 03-08-2025 Basophils (Bld) [#/Vol] 0 10*3/uL 0.0 - 0.2 10*3/uL [facility] Basophils/100 WBC (Bld) 0.4 % 0.0 - 2.0 % [facility] Eosinophils (Bld) [#/Vol] 0.4 10*3/uL 0.0 - 0.5 10*3/uL [facility] Eosinophils/100 WBC (Bld) 4.6 % 0.0 - 6.0 % [facility] Erythrocyte distribution width (RBC) [Ratio] 14.8 % 11.5 - 15.0 % [facility] Hematocrit (Bld) [Volume fraction] 25.4 % Low 35.0 - 47.0 % [facility] Hemoglobin (Bld) [Mass/Vol] 8.4 g/dL Low 11.7 - 16.0 g/dL [facility] Immature granulocytes (Bld) [#/Vol] 0 10*3/uL NINF - 0.1 10*3/uL [facility] [employer] Immature granulocytes/100 WBC (Bld) 0.3 % 0.0 - 2.0 % [facility] Interpretation and review of laboratory results Abnormal [facility] Lymphocytes (Bld) [#/Vol] 3.3 10*3/uL 1.0 - 4.3 10*3/uL [facility] Lymphocytes/100 WBC (Bld) 41.8 % 15.0 - 45.0 % [facility] MCH (RBC) [Entitic mass] 31.6 pg 26.0 - 34.0 pg [facility] MCHC (RBC) [Mass/Vol] 33.1 % 30.5 - 36.0 % [facility] MCV (RBC) [Entitic vol] 95.5 fL 77.0 - 99.0 fL [facility] Monocytes (Bld) [#/Vol] 0.9 10*3/uL 0.0 - 0.9 10*3/uL [facility] Monocytes/100 WBC (Bld) 11.8 % 5.0 - 13.0 % [facility] Neutrophils (Bld) [#/Vol] 3.2 10*3/uL 1.8 - 7.5 10*3/uL [facility] Neutrophils/100 WBC (Bld) 41.1 % 38.0 - 82.0 % [facility] Nucleated RBC/100 WBC (Bld) [Ratio] 0 % [facility] Platelet mean volume (Bld) [Entitic vol] 9.7 fL 9.0 - 12.7 fL [facility] Platelets (Bld) [#/Vol] 228 10*3/uL 140 - 440 10*3/uL [facility] RBC (Bld) [#/Vol] 2.66 10*6/uL Low 3.80 - 5.20 10*6/uL [facility] WBC (Bld) [#/Vol] 7.8 10*3/uL 3.6 - 10.7 10*3/uL [facility] CBC WITH AUTO DIFFERENTIALon 03-08-2025 Basophils (Bld) [#/Vol] 0.0 10*3/uL Normal 0.0-0.2 [facility] Comment on above: Performed By: #### L [id number] ####Pin Setter: JULI JONES ([id number])[address] Basophils/100 WBC (Bld) 0.4 % Normal 0.0-2.0 [facility] Comment on above: Performed By: #### L [id number] ####Pin Setter: JULI [id number])[facility])[address] [place] [address] Eosinophils (Bld) [#/Vol] 0.4 10*3/uL Normal 0.0-0.5 [facility] Comment on above: Performed By: #### L [id number] ####Pin Setter: JULI [id number])[facility] [address] Eosinophils/100 WBC (Bld) 4.6 % Normal 0.0-6.0 [facility] Comment on above: Performed By: #### L [id number] ####Pin Setter: JULI JONES ([id number])[facility])[address] [place] [address] Erythrocyte distribution width (RBC) [Ratio] 14.8 % Normal 11.5-15.0 [facility] Comment on above: Performed By: #### L [id number] ####Pin Setter: JULI JONES ([id number])[address] Hematocrit (Bld) [Volume fraction] 25.4 % Low 35.0-47.0 [facility] Comment on above: Performed By: #### L [id number] ####Pin Setter: JULI JONES ([id number])[address] Hemoglobin (Bld) [Mass/Vol] 8.4 g/dL Low 11.7-16.0 [facility] Comment on above: Performed By: #### L [id number] ####Pin Setter: JULI JONES ([id number])[address] IMMATURE GRANS % 0.3 % Normal 0.0-2.0 [facility] Comment on above: Performed By: #### L [id number] ####Pin Setter: JULI JONES ([id number])[facility])[address] [place] [address] IMMATURE GRANS ABSOLUTE 0.0 10*3/uL Normal <0.1 [facility] Comment on above: Performed By: #### L [id number] ####Pin Setter: JULI JONES ([id number])[facility])[address] [place] [address] Lymphocytes (Bld) [#/Vol] 3.3 10*3/uL Normal 1.0-4.3 [facility] Comment on above: Performed By: #### L [id number] ####Pin Setter: JULI JONES ([id number])[facility])[address] [place] [address] Lymphocytes/100 WBC (Bld) 41.8 % Normal 15.0-45.0 [facility] Comment on above: Performed By: #### L [id number] ####Pin Setter: JULI JONES ([id number])[facility])[address] [place] [address] MCH (RBC) [Entitic mass] 31.6 pg Normal 26.0-34.0 [facility] Comment on above: Performed By: #### L [id number] ####Pin Setter: JULI JONES ([id number])[facility])[address] [place] [address] MCHC 33.1 % Normal 30.5-36.0 [facility] Comment on above: Performed By: #### L [id number] ####Pin Setter: JULI JONES ([id number])[facility])[address] [place] [address] MCV (RBC) [Entitic vol] 95.5 fL Normal 77.0-99.0 [facility] Comment on above: Performed By: #### L [id number] ####Pin Setter: JULI JONES ([id number])[facility])[address] [place] [address] Monocytes (Bld) [#/Vol] 0.9 10*3/uL Normal 0.0-0.9 [facility] Comment on above: Performed By: #### L [id number] ####Pin Setter: JULI JONES ([id number])[facility])[address] [place] [address] Monocytes/100 WBC (Bld) 11.8 % Normal 5.0-13.0 [facility] Comment on above: Performed By: #### L [id number] ####Pin Setter: JULI [id number])[facility] [place] [address] NEUTROPHILS ABSOLUTE 3.2 10*3/uL Normal 1.8-7.5 [facility] Comment on above: Performed By: #### L [id number] ####Pin Setter: JULI JONES ([id number])[facility] ([facility])[address] [place] [address] Neutrophils/100 WBC (Bld) 41.1 % Normal 38.0-82.0 [facility] Comment on above: Performed By: #### L [id number] ####Pin Setter: JULI JONES ([id number])[facility] ([facility])[address] [place] [address] NRBC 0.0 /100 WBCs Normal 0.0-2.0 [facility] Comment on above: Performed By: #### L [id number] ####Pin Setter: JULI JONES ([id number])[facility] ([facility])[address] [place] [address] Platelet mean volume (Bld) [Entitic vol] 9.7 fL Normal 9.0-12.7 [facility] Comment on above: Performed By: #### L [id number] ####Pin Setter: JULI JONES ([id number])[facility] ([facility])[address] [place] [address] Platelets (Bld) [#/Vol] 228 10*3/uL Normal 140-440 [facility] Comment on above: Performed By: #### L [id number] ####Pin Setter: JULI JONES ([id number])[facility] ([facility])[address] [place] [address] RBC (Bld) [#/Vol] 2.66 10*6/uL Low 3.80-5.20 [facility] Comment on above: Performed By: #### L [id number] ####Pin Setter: JULI JONES ([id number])[facility] ([facility])[address] [place] [address] WBC (Bld) [#/Vol] 7.8 10*3/uL Normal 3.6-10.7 [facility] Comment on above: Performed By: #### L [id number] ####Pin Setter: JULI JONES ([id number])[facility] ([facility])[address] [place] [address] Cobalamin (Vitamin B12) [Mas s/Vol]on 03-08-2025 Interpretation and review of laboratory results Normal [facility] Health Consulton 03-08-2025 Consult Normal [facility] Consult Normal [facility] FOLATEon 03-08-2025 FOLATE RESULT 3.7 ng/mL Low 7.0-31.4 [facility] Comment on above: Performed By: #### L AB69, LAB67, LAB15 ####Pin Setter: JULI JONES ([id number])[facility] [place] [address] Laboratory - Chemistry and C hemistry - challengeon 03-08-2025 Sodium (24H U) [Mass/Vol] 29 mmol/L [facility] Sodium [Moles/Vol] 129 mmol/L Low 136 - 145 mmol/L [facility] Cobalamin (Vitamin B12) [Mass/Vol] 689 pg/mL 213 - 816 pg/mL [facility] Folate [Mass/Vol] 3.7 ng/mL Low 7.0 - 31.4 ng/mL [facility] 25-hydroxyvitamin D3 [Mass/Vol] 45 ng/mL 20 - 50 ng/mL [facility] TSH Qn 7.17 m[IU]/L High [facility] Laboratory - Chemistry and C hemistry - challengeOrdered By: Ewelina Pitts on 03-08-2025 Osmolality [Osmolality] 278 mosm/kg Low [facility] No Panel Informationon 03-08 CREATININE, URINE 18.3 mg/dL Low 47.0 - 110.0 mg/dL [facility] Interpretation and review of laboratory results Abnormal [facility] SODIUM, URINE, FRACTIONAL EXCRETION 2.2 [facility] SODIUM, URINE, TUBULAR REABSORPTION 1 [facility] Interpretation and review of laboratory results Abnormal [facility] OSMOLALITY, URINE 104 Low [facility] Repeated [facility] Interpretation and review of laboratory results Abnormal [facility] Interpretation and review of laboratory results Abnormal [facility] No Panel InformationOrdered By: Ewelina Pitts on 03-08-2025 Interpretation and review of laboratory results Abnormal [facility] Repeated [facility] OSMOLALITY, SERUMon 03-08-20 25 OSMOLALITY, SERUM 278 mOsm/kg Low 280-300 [facility] Comment on above: Result Comment: HARRIET Mayfield COMMENTS:Please collect and send urine and serum labs togetherRepeated Performed By: #### L [id number] ####Pin Setter: JULI JONES ([id number])[address] OSMOLALITY, URINEon 03-08-20 25 OSMOLALITY, URINE 104 mOsm/kg Low 300-1000 [facility] Comment on above: Result Comment: HARRIET [place] COMMENTS:Please collect and send urine and serum labs togetherRepeated Performed By: #### L [id number], [id number] ####Pin Setter: JULI JONES ([id number])[facility])[address] [place] [address] Progress Noteon 03-08-2025 Progress Note Normal [facility] Progress Note Normal [facility] Progress Note Nutrition rescreen completed. Chart reviewed. 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 Blanca Jackson, DT Normal [facility] SODIUMon 03-08-2025 Sodium [Moles/Vol] 129 mmol/L Low 136-145 [facility] Comment on above: Order Comment: Chidi flores collect and send urine and serum labs together Performed By: #### L [id number] ####Pin Setter: JULI JONES ([id number])[address] SODIUM, URINE, RANDOMon 02-13 CREATININE, URINE 18.3 mg/dL Low 47.0-110.0 [facility] Comment on above: Performed By: #### L [id number], [id number] ####Pin Setter: JULI JONES ([id number])[facility])[address] [place] [address] Sodium (U) [Moles/Vol] 29 mmol/L Normal [facility] Comment on above: Performed By: #### L [id number], [id number] ####Pin Setter: JULI JONES ([id number])[facility] ([facility])[address] [place] [address] SODIUM, URINE, FRACTIONAL EXCRETION 2.2 Normal [facility] Comment on above: Performed By: #### L [id number], [id number] ####Pin Setter: JULI JONES ([id number])[facility] ([facility])[address] [place] [address] SODIUM, URINE, TUBULAR REABSORPTION 1.0 Normal [facility] Comment on above: Performed By: #### L [id number], [id number] ####Pin Setter: JULI JONES ([id number])[facility] ([facility])[address] [place] [address] THYROID STIMULATING HORMONEo n 03-08-2025 THYROID STIMULATING HORMONE 7.17 uIU/mL High 0.35-4.94 [facility] Comment on above: Performed By: #### L [id number], [id number] ####Pin Setter: JULI JONES ([id number])[facility])[address] [place] [address] TSH Qnon 03-08-2025 Interpretation and review of laboratory results Abnormal [facility] VITAMIN B12on 03-08-2025 Cobalamin (Vitamin B12) [Mass/Vol] 689 pg/mL Normal 213-816 [facility] Comment on above: Performed By: #### L AB69, [id number], [id number] ####Pin Setter: JULI JONES ([id number])[facility])[address] [place] [address] VITAMIN D DEFICIENCY SCREENI NG (VIT D 25)on 03-08-2025 VIT D 25-OH, TOTAL 45 ng/mL Normal See comment [facility] Comment on above: Result Comment: HARRIET Mayfield COMMENTS:Target concentration: 30 - 40 ng/mL; toxicity seen at concentrations >100 ng/mLLess than 20 ng/mL: Indicative of Vit D deficiencyTest performed by On-Q-ity, measuring Total Vitamin D, not individual fractions. Performed By: #### L [id number], [id number] ####Pin Setter: JULI JONES ([id number])[facility])[address] [place] [id number] [place] [address] [id number] 03-07-2025 [id number] Normal [facility] BASIC METABOLIC PANELon 02-13 Anion gap [Moles/Vol] 9 mmol/L Normal 3-13 [facility] Comment on above: Performed By: #### L [id number] ####Pin Setter: JULI JONES ([id number])[facility] ([facility])[address] [place] [id number] [place] [address] Calcium [Mass/Vol] 8.5 mg/dL Normal 8.4-10.2 [facility] Comment on above: Performed By: #### L [id number] ####Pin Setter: JULI JONES ([id number])[facility])[address] [place] [address] [place] Chloride [Moles/Vol] 99 mmol/L Normal 98-107 [facility] Comment on above: Performed By: #### L [id number] ####Pin Setter: JULI JONES ([id number])[facility])[address] [place] [address] [place] CO2 [Moles/Vol] 20 mmol/L Low 22-29 [facility] Comment on above: Performed By: #### L [id number] ####Pin Setter: JULI JONES ([id number])[facility] ([facility])[address] [place] [address] [place] Creatinine [Mass/Vol] 1.88 mg/dL High 0.57-1.11 [facility] Comment on above: Performed By: #### L [id number] ####Pin Setter: JULI JNOES ([id number])[facility] ([facility])[address] [place] [address] [place] GLOMERULAR FILTRATION RATE ML/MIN/1.73 SQ M.PREDICTED 30.7 mL/min/1.73m*2 Low >60.0 [facility] Comment on above: Result Comment: Calc ulation based on the Chronic Kidney Disease Epidemiology Collaboration (CKD-EPI) equation refit without adjustment for race Performed By: #### L [id number] ####Pin Setter: JULI JONES ([id number])[facility])[address] [place] [address] Glucose [Mass/Vol] 88 mg/dL Normal 74-100 [facility] Comment on above: Performed By: #### L [id number] ####Pin Setter: JULI JONES ([id number])[facility])[address] [place] [address] Potassium [Moles/Vol] 4.1 mmol/L Normal 3.5-5.1 [facility] Comment on above: Result Comment: [facility] potassium values may be up to 0.5 mmol/L lower than serum values. Performed By: #### L [id number] ####Pin Setter: JULI JONES ([id number])[facility] ([facility])[address] [place] [address] Sodium [Moles/Vol] 128 mmol/L Low 136-145 [facility] Comment on above: Performed By: #### L [id number] ####Pin Setter: JULI JONES ([id number])[facility])[address] [place] [address] Urea nitrogen [Mass/Vol] 16 mg/dL Normal 9-23 [facility] Comment on above: Performed By: #### L [id number] ####Pin Setter: JULI JONES ([id number])[facility])[address] [place] [address] Basic metabolic 1998 panelon 03-07-2025 Anion gap [Moles/Vol] 9 mmol/L 3 - 13 mmol/L [facility] Calcium [Mass/Vol] 8.5 mg/dL 8.4 - 10. 2 mg/dL [facility] Chloride [Moles/Vol] 99 mmol/L 98 - 10 7 mmol/L [facility] CO2 [Moles/Vol] 20 mmol/L Low 22 - 29 mmol/L [facility] Creatinine [Mass/Vol] 1.88 mg/dL High 0.57 - 1.11 mg/dL [facility] GFR/1.73 sq M.predicted (S/P/Bld) [Vol rate/Area] 30.7 mL/min Low - PINF [facility] Comment on above: Calculation based on the Chronic Kidney Disease Epidemiology Collaboration (CKD-EPI) equation refit without adjustment for race Glucose [Mass/Vol] 88 mg/dL 74 - 100 mg/dL [facility] Interpretation and review of laboratory results Abnormal [facility] Potassium [Moles/Vol] 4.1 mmol/L 3.5 - 5.1 mmol/L [facility] Comment on above: Plasma potassium batsheva ues may be up to 0.5 mmol/L lower than serum values. Sodium [Moles/Vol] 128 mmol/L Low 136 - 145 mmol/L [facility] Urea nitrogen [Mass/Vol] 16 mg/dL 9 - 23 mg/dL [facility] COMPLETE URINALYSIS WITH REF ANN TO CULTUREon 03-07-2025 BACTERIA (#/HPF) IN URINE Negative Normal Negative [facility] Comment on above: Performed By: #### L [id number] ####Pin Setter: JULI JONES ([id number])[address] BILIRUBIN, TOTAL PRESENCE IN URINE Negative Normal Negative [facility] Comment on above: Performed By: #### L [id number] ####Pin Setter: JULI JONES ([id number])[address] Clarity (U) Clear Normal Clear [facility] Comment on above: Performed By: #### L [id number] ####Pin Setter: JULI JONES ([id number])[address] Color (U) Colorless Normal Lt. Yellow [facility] Comment on above: Performed By: #### L [id number] ####Pin Setter: JULI JONES ([id number])[facility] ([facility])[address] [place] [address] GLUCOSE (MG/DL) IN URINE Normal Normal Normal (<70) [facility] Comment on above: Performed By: #### L [id number] ####Pin Setter: JULI JONES ([id number])[facility] ([facility])[address] [place] [address] HEMOGLOBIN PRESENCE IN URINE Negative Normal Negative [facility] Comment on above: Performed By: #### L [id number] ####Pin Setter: JULI JONES ([id number])[facility] ([facility])[address] [place] [address] HYALINE CASTS (#/LPF) IN URINE SEDIMENT BY MICROSCOPY Negative Normal Negative [facility] Comment on above: Performed By: #### L [id number] ####Pin Setter: JULI JONES ([id number])[facility] ([facility])[address] [place] [address] Ketones Ql (U) Negative Normal Negative [facility] Comment on above: Performed By: #### L [id number] ####Pin Setter: JULI JONES ([id number])[facility] ([facility])[address] [place] [address] LEUKOCYTE ESTERASE PRESENCE IN URINE BY TEST STRIP 25 Devang/uL Abnormal Negative [facility] Comment on above: Performed By: #### L [id number] ####Pin Setter: JULI JONES ([id number])[facility] ([facility])[address] [place] [address] NITRITE PRESENCE IN URINE Negative Normal Negative [facility] Comment on above: Performed By: #### L [id number] ####Pin Setter: JULI JONES ([id number])[facility])[address] [place] [address] pH (U) 6.5 [pH] Normal 5.0-8.0 [facility] Comment on above: Performed By: #### L [id number] ####Pin Setter: JULI JONES ([id number])[facility] ([facility])[address] [place] [address] Protein (U) [Mass/Vol] 20 mg/dL Abnormal Negative [facility] Comment on above: Performed By: #### L [id number] ####Pin Setter: JULI JONES ([id number])[facility] ([facility])[address] [place] [address] RBC (#/HPF) IN URINE SEDIMENT 0-2 Normal 0-2 [facility] Comment on above: Performed By: #### L [id number] ####Pin Setter: JULI JONES ([id number])[facility])[address] [place] [address] Specific gravity (U) [Rel density] 1.003 Low 1.005-1.03 0 [facility] Comment on above: Result Comment: HARRIET Mayfield COMMENTS:A specimen with <=10 WBC is not consistent with inflammation. This specimen will not reflex to a urine culture. Performed By: #### L [id number] ####Pin Setter: JULI JONES ([id number])[facility] ([facility])[address] [place] [address] SQUAMOUS EPITHELIAL CELLS (#/HPF) IN URINE SEDIMENT 0-2 Normal 3-5 [facility] Comment on above: Performed By: #### L [id number] ####Pin Setter: JULI JONES ([id number])[facility])[address] [place] [address] UROBILINOGEN (MG/DL) IN URINE Normal Normal Normal (0-1) [facility] Comment on above: Performed By: #### L [id number] ####Pin Setter: JULI JONES ([id number])[facility] ([facility])[address] [place] [address] WBC (LEUKOCYTE) (#/HPF) IN URINE SEDIMENT 0-2 Normal 0-5 [facility] Comment on above: Performed By: #### L [id number] ####Pin Setter: JULI JONES ([id number])[facility])[address] [place] [address] [facility] Comprehensive metabolic 1998 panelon 03-07-2025 Albumin [Mass/Vol] 3 g/dL Low 3.5 - 5.0 g/dL [facility] ALP [Catalytic activity/Vol] 55 U/L 40 - 150 U/L [facility] ALT [Catalytic activity/Vol] U/L NINF - 30 U/L [facility] Anion gap [Moles/Vol] 6 mmol/L 3 - 13 mmol/L [facility] AST [Catalytic activity/Vol] 26 U/L NINF - 34 U/L [facility] Bilirubin [Mass/Vol] 0.3 mg/dL NINF - 1.2 mg/dL [facility] Calcium [Mass/Vol] 8.7 mg/dL 8.4 - 10. 2 mg/dL [facility] Chloride [Moles/Vol] 92 mmol/L Low 98 - 10 7 mmol/L [facility] CO2 [Moles/Vol] 23 mmol/L 22 - 29 mmol/L [facility] Creatinine [Mass/Vol] 2.14 mg/dL High 0.57 - 1.11 mg/dL [facility] GFR/1.73 sq M.predicted (S/P/Bld) [Vol rate/Area] 26.3 mL/min Low - PINF [facility] Comment on above: Calculation based on the Chronic Kidney Disease Epidemiology Collaboration (CKD-EPI) equation refit without adjustment for race Glucose [Mass/Vol] 92 mg/dL 74 - 100 mg/dL [facility] Interpretation and review of laboratory results Abnormal [facility] Potassium [Moles/Vol] 4.3 mmol/L 3.5 - 5.1 mmol/L [facility] Comment on above: Plasma potassium batsheva ues may be up to 0.5 mmol/L lower than serum values. Protein [Mass/Vol] 6.2 g/dL Low 6.4 - 8.3 g/dL [facility] Sodium [Moles/Vol] 121 mmol/L Low 136 - 145 mmol/L [facility] Urea nitrogen [Mass/Vol] 20 mg/dL 9 - 23 mg/dL [facility] ECG 12-LEADon 03-07-2025 ECG 12-LEAD IMPRESSION: Sinus rhythm normal axis and intervals Anterior T wave abnormality seen in previous EKG has resolved. Electronically Signed On 03-07-2025 05:36:29 EDT by Hever Duncan Normal [facility] FREE T4on 03-07-2025 Free T4 [Mass/Vol] 1.05 ng/dL Normal 0.70-1.48 [facility] Comment on above: Performed By: #### L [id number] ####Pin Setter: JULI JONES ([id number])[facility] ([address] Free T4 [Mass/Vol]on 025 Free T4 Dialysis [Mass/Vol] 1.05 ng/dL 0.70 - 1.48 ng/dL [facility] Interpretation and review of laboratory results Normal [facility] Laboratory - Chemistry and C hemistry - challengeon 03-07-2025 TSH Qn 5.6 m[IU]/L High [facility] [employer] No Panel InformationOrdered By: Hever Duncan on 03-07-2025 P English 12 degrees [employer] Work Phone: CA Interval 166 ms [facility] Work Phone: QRS English 16 degrees [employer] Work Phone: QRSD Interval 98 ms [employer] Work Phone: QT Interval 414 ms [employer] Work Phone: QTC Interval 446 ms [employer] Phone: T Wave English 14 degrees [employer] Work Phone: [employer] Work Phone: No Panel Informationon 03-07 Sinus rhythm normal axis and intervals Anterior T wave abnormality seen in previous EKG has resolved. Electronically Signed On 03-07-2025 05:36:29 EDT by Hever Jain D O - 03/07/2025 IMPRESSION: Sinus rhythm normal axis and intervals Anterior T wave abnormality seen in previous EKG has resolved. Electronically Signed On 03-07-2025 05:36:29 EDT by Hever Duncan [facility] Progress Noteon 03-07-2025 Progress Note Normal [facility] Progress Note Normal [facility] TSH Qnon 03-07-2025 Interpretation and review of laboratory results Abnormal [facility] Urinalysis complete panel (U )Ordered By: Vu Dewitt on 03-07-2025 Bacteria LM.HPF (Urine sed) [#/Area] Negative Negative /HPF [facility] Bilirubin Ql (U) Negative Negative mg/dL [facility] Clarity (U) Clear Clear [facility] Color (U) Colorless Lt. Yellow [facility] Epithelial cells.squamous LM.HPF (Urine sed) [#/Area] 0-2 [facility] Glucose Ql (U) Normal Normal (<70) mg/dL [facility] Hemoglobin Ql (U) Negative Negative mg/dL [facility] Hyaline casts Auto (Urine sed) [#/Area] Negative Negative /LPF [facility] Interpretation and review of laboratory results Abnormal [facility] Ketones (U) [Mass/Vol] Negative Negat jayne mg/dL [facility] Leukocyte esterase Test strip Ql (U) 25 Abnormal Negative Devang/uL [facility] Nitrite Ql (U) Negative Negative [facility] pH (U) 6.5 [pH] 5.0 - 8.0 pH [facility] Protein (U) [Mass/Vol] 20 mg/dL Abnormal Negative [facility] RBC LM.HPF (Urine sed) [#/Area] 0-2 [facility] Specific gravity (U) [Rel density] 1.003 Low 1.005 - 1.030 [facility] Urobilinogen (U) [Mass/Vol] Normal Normal (0-1) mg/dL [facility] WBC LM.HPF (Urine sed) [#/Area] 0-2 [facility] A specimen with <=10 WBC is not consistent with inflammation. This specimen will not reflex to a urine culture. [facility] Vital signsOrdered By: Yadi Duncan on 03-07-2025 Heart rate 70 /min bpm [facility] Work Phone: CBC W Auto Differential pane l (Bld)on 03-06-2025 Basophils (Bld) [#/Vol] 0 10*3/uL 0.0 - 0.2 10*3/uL [facility] Basophils/100 WBC (Bld) 0.3 % 0.0 - 2.0 % [facility] Eosinophils (Bld) [#/Vol] 0.1 10*3/uL 0.0 - 0.5 10*3/uL [facility] Eosinophils/100 WBC (Bld) 1.4 % 0.0 - 6.0 % [facility] Erythrocyte distribution width (RBC) [Ratio] 14.2 % 11.5 - 15.0 % [facility] Hematocrit (Bld) [Volume fraction] 25.3 % Low 35.0 - 47.0 % [facility] Hemoglobin (Bld) [Mass/Vol] 8.8 g/dL Low 11.7 - 16.0 g/dL [facility] Immature granulocytes (Bld) [#/Vol] 0 10*3/uL NINF - 0.1 10*3/uL [facility] Immature granulocytes/100 WBC (Bld) 0.4 % 0.0 - 2.0 % [facility] Interpretation and review of laboratory results Abnormal [facility] Lymphocytes (Bld) [#/Vol] 2.1 10*3/uL 1.0 - 4.3 10*3/uL [facility] Lymphocytes/100 WBC (Bld) 26.2 % 15.0 - 45.0 % [facility] MCH (RBC) [Entitic mass] 32.1 pg 26.0 - 34.0 pg [facility] MCHC (RBC) [Mass/Vol] 34.8 % 30.5 - 36.0 % [facility] MCV (RBC) [Entitic vol] 92.3 fL 77.0 - 99.0 fL [facility] Monocytes (Bld) [#/Vol] 1.1 10*3/uL High 0.0 - 0.9 10*3/uL [facility] Monocytes/100 WBC (Bld) 13.9 % High 5.0 - 13.0 % [facility] Neutrophils (Bld) [#/Vol] 4.6 10*3/uL 1.8 - 7.5 10*3/uL [facility] Neutrophils/100 WBC (Bld) 57.8 % 38.0 - 82.0 % [facility] Nucleated RBC/100 WBC (Bld) [Ratio] 0 % [facility] [employer] Platelet mean volume (Bld) [Entitic vol] 9.4 fL 9.0 - 12.7 fL [facility] Platelets (Bld) [#/Vol] 211 10*3/uL 140 - 440 10*3/uL [facility] RBC (Bld) [#/Vol] 2.74 10*6/uL Low 3.80 - 5.20 10*6/uL [facility] WBC (Bld) [#/Vol] 8 10*3/uL 3.6 - 10.7 10*3/uL [facility] CBC WITH AUTO DIFFERENTIALon 03-06-2025 Basophils (Bld) [#/Vol] 0.0 10*3/uL Normal 0.0-0.2 [facility] Comment on above: Performed By: #### L [id number] ####Pin Setter: JULI JONES ([id number])[facility])[address] [place] [address] Basophils/100 WBC (Bld) 0.3 % Normal 0.0-2.0 [facility] Comment on above: Performed By: #### L [id number] ####Pin Setter: JULI JONES ([id number])[facility] ([facility])[address] [place] [address] Eosinophils (Bld) [#/Vol] 0.1 10*3/uL Normal 0.0-0.5 [facility] Comment on above: Performed By: #### L [id number] ####Pin Setter: JULI JONES ([id number])[facility])[address] [place] [address] Eosinophils/100 WBC (Bld) 1.4 % Normal 0.0-6.0 [facility] Comment on above: Performed By: #### L [id number] ####Pin Setter: JULI JONES ([id number])[facility])[address] [place] [address] Erythrocyte distribution width (RBC) [Ratio] 14.2 % Normal 11.5-15.0 [facility] Comment on above: Performed By: #### L [id number] ####Pin Setter: JULI [id number])[facility] [address] Hematocrit (Bld) [Volume fraction] 25.3 % Low 35.0-47.0 [facility] Comment on above: Performed By: #### L [id number] ####Pin Setter: JULI JONES ([id number])[facility])[address] [place] [address] Hemoglobin (Bld) [Mass/Vol] 8.8 g/dL Low 11.7-16.0 [facility] Comment on above: Performed By: #### L [id number] ####Pin Setter: JULI JONES ([id number])[facility])[address] [place] [address] IMMATURE GRANS % 0.4 % Normal 0.0-2.0 [facility] Comment on above: Performed By: #### L [id number] ####Pin Setter: JULI JONES ([id number])[facility])[address] [place] [address] IMMATURE GRANS ABSOLUTE 0.0 10*3/uL Normal <0.1 [facility] Comment on above: Performed By: #### L [id number] ####Pin Setter: JULI JONES ([id number])[facility])[address] [place] [address] Lymphocytes (Bld) [#/Vol] 2.1 10*3/uL Normal 1.0-4.3 [facility] Comment on above: Performed By: #### L [id number] ####Pin Setter: JULI JONES ([id number])[facility])[address] [place] [address] Lymphocytes/100 WBC (Bld) 26.2 % Normal 15.0-45.0 [facility] Comment on above: Performed By: #### L [id number] ####Pin Setter: JULI JONES ([id number])[facility])[address] [place] [address] MCH (RBC) [Entitic mass] 32.1 pg Normal 26.0-34.0 [facility] Comment on above: Performed By: #### L [id number] ####Pin Setter: JULI JONES ([id number])[facility])[address] [place] [address] MCHC 34.8 % Normal 30.5-36.0 [facility] Comment on above: Performed By: #### L [id number] ####Pin Setter: JULI JONES ([id number])[facility])[address] [place] [address] MCV (RBC) [Entitic vol] 92.3 fL Normal 77.0-99.0 [facility] Comment on above: Performed By: #### L [id number] ####Pin Setter: JULI JONES ([id number])[facility])[address] [place] [address] Monocytes (Bld) [#/Vol] 1.1 10*3/uL High 0.0-0.9 [facility] Comment on above: Performed By: #### L [id number] ####Pin Setter: JULI JONES ([id number])[facility])[address] [place] [address] Monocytes/100 WBC (Bld) 13.9 % High 5.0-13.0 [facility] Comment on above: Performed By: #### L [id number] ####Pin Setter: JULI JONES ([id number])[facility])[address] [place] [address] NEUTROPHILS ABSOLUTE 4.6 10*3/uL Normal 1.8-7.5 [facility] Comment on above: Performed By: #### L [id number] ####Pin Setter: JULI JONES ([id number])[facility])[address] [place] [address] Neutrophils/100 WBC (Bld) 57.8 % Normal 38.0-82.0 [facility] Comment on above: Performed By: #### L [id number] ####Pin Setter: JULI [id number])[facility] ([facility])[address] [place] [address] NRBC 0.0 /100 WBCs Normal 0.0-2.0 [facility] Comment on above: Performed By: #### L [id number] ####Pin Setter: JULI JONES ([id number])[facility])[address] [place] [address] Platelet mean volume (Bld) [Entitic vol] 9.4 fL Normal 9.0-12.7 [facility] Comment on above: Performed By: #### L [id number] ####Pin Setter: JULI JONES ([id number])[facility])[address] [place] [address] Platelets (Bld) [#/Vol] 211 10*3/uL Normal 140-440 [facility] Comment on above: Performed By: #### L [id number] ####Pin Setter: JULI JONES ([id number])[facility] ([facility])[address] [place] [address] RBC (Bld) [#/Vol] 2.74 10*6/uL Low 3.80-5.20 [facility] Comment on above: Performed By: #### L [id number] ####Pin Setter: JULI JONES ([id number])[facility])[address] [place] [address] WBC (Bld) [#/Vol] 8.0 10*3/uL Normal 3.6-10.7 [facility] Comment on above: Performed By: #### L [id number] ####Pin Setter: JULI JONES ([id number])[facility])[address] [place] [address] COMPREHENSIVE METABOLIC PANE Nestor 03-06-2025 Albumin [Mass/Vol] 3.0 g/dL Low 3.5-5.0 [facility] Comment on above: Performed By: #### L [id number], [id number] ####Pin Setter: JULI JONES ([id number])[facility] [place] [address] [place] ALP [Catalytic activity/Vol] 55 U/L Normal 40-150 [facility] Comment on above: Performed By: #### L [id number], [id number] ####Pin Setter: JULI JONES ([id number])[facility] ([facility])[address] [place] [address] [place] ALT [Catalytic activity/Vol] U/L Normal <30 [facility] Comment on above: Performed By: #### L [id number], LAB17 ####Pin Setter: JULI JONES ([id number])[facility] ([facility])[address] [place] [address] Anion gap [Moles/Vol] 6 mmol/L Normal 3-13 [facility] Comment on above: Performed By: #### L [id number], LAB17 ####Pin Setter: JULI JONES ([id number])[facility] ([facility])[address] [place] [address] AST [Catalytic activity/Vol] 26 U/L Normal <34 [facility] Comment on above: Performed By: #### L [id number], LAB17 ####Pin Setter: JULI JONES ([id number])[facility] ([facility])[address] [place] [address] Bilirubin [Mass/Vol] 0.3 mg/dL Normal <1.2 [facility] Comment on above: Performed By: #### L [id number], LAB17 ####Pin Setter: JULI JONES ([id number])[facility] ([facility])[address] [place] [address] Calcium [Mass/Vol] 8.7 mg/dL Normal 8.4-10.2 [facility] Comment on above: Performed By: #### L [id number], LAB17 ####Pin Setter: JULI JONES ([id number])[facility] ([facility])[address] [place] [address] [place] Chloride [Moles/Vol] 92 mmol/L Low 98-107 [facility] Comment on above: Performed By: #### L [id number], LAB17 ####Pin Setter: JULI JONES ([id number])[facility])[address] [place] [address] CO2 [Moles/Vol] 23 mmol/L Normal 22-29 [facility] Comment on above: Performed By: #### L AB129, LAB17 ####Pin Setter: JULI JONES ([id number])[facility])[address] [place] [address] Creatinine [Mass/Vol] 2.14 mg/dL High 0.57-1.11 [facility] Comment on above: Performed By: #### L AB129, LAB17 ####Pin Setter: JULI JONES ([id number])[facility])[address] [place] [address] GLOMERULAR FILTRATION RATE ML/MIN/1.73 SQ M.PREDICTED 26.3 mL/min/1.73m*2 Low >60.0 [facility] Comment on above: Result Comment: Calc ulation based on the Chronic Kidney Disease Epidemiology Collaboration (CKD-EPI) equation refit without adjustment for race Performed By: #### L AB129, LAB17 ####Pin Setter: JULI JONES ([id number])[facility])[address] [place] [address] Glucose [Mass/Vol] 92 mg/dL Normal 74-100 [facility] Comment on above: Performed By: #### L AB129, LAB17 ####Pin Setter: JULI JONES ([id number])[facility])[address] [place] [address] Potassium [Moles/Vol] 4.3 mmol/L Normal 3.5-5.1 [facility] Comment on above: Result Comment: [facility] potassium values may be up to 0.5 mmol/L lower than serum values. Performed By: #### L [id number], LAB17 ####Pin Setter: JULI JONES ([id number])[facility])[address] [place] [address] Protein [Mass/Vol] 6.2 g/dL Low 6.4-8.3 [facility] Comment on above: Performed By: #### L AB129, LAB17 ####Pin Setter: JULI JONES ([id number])[address] Sodium [Moles/Vol] 121 mmol/L Low 136-145 [facility] Comment on above: Performed By: #### L AB129, LAB17 ####Pin Setter: JULI JONES ([id number])[address] Urea nitrogen [Mass/Vol] 20 mg/dL Normal 05-07 [facility] Comment on above: Performed By: #### L AB129, LAB17 ####Pin Setter: JULI JONES ([id number])[address] ED Nursing Noteon 03-06-2025 ED Nursing Note Called Robert gonzalez as they have not arrived for 0900 ETA. Dispatch states they will be here in 10 minutes. Normal [facility] ED Nursing Note Upon arrival pt brian barrera to report that she was anxious and needed meds for anxiety "like klonopin." Normal [facility] ED Provider Noteon ED Provider Note Normal [facility] ED Provider Note Normal [facility] THYROID STIMULATING HORMONEo n 03-06-2025 THYROID STIMULATING HORMONE 5.60 uIU/mL High 0.35-4.94 [facility] Comment on above: Performed By: #### L AB129, LAB17 ####Pin Setter: JULI JONES ([id number])[address] XR Chest Single viewon 03-06 1. No acute finding. Report Dictated on Electronically Signed By: Dinesh Chacon MD Electronically Signed Date/Time: 03/06/2025 11:12 PM EDT [facility] [place] [employer] [facility] Patient Name: JESSY WEN DOB: 1965 Exam Date/Time: 03/06/2025 23:02 Procedure: XR CHEST 1 VIEW Ordering Provider: TALBOT SHAYA Reason For Exam: weakness SINGLE FRONTAL VIEW OF THE CHEST CLINICAL INDICATION: weakness TECHNIQUE: Single frontal view of the chest COMPARISON: 11/15/2024 FINDINGS: Lungs are show no significant consolidation. No pleural effusion or pneumothorax. No vascular congestion. Heart size mildly enlarged. [facility] Dinesh Chacon MD - 03/06/2025 Patient Name: JESSY MCKEON : 1965 Exam Date/Time: 03/06/2025 23:02 Procedure: XR CHEST 1 VIEW Ordering Provider: TALBOT SHAYA Reason For Exam: weakness SINGLE FRONTAL VIEW OF THE CHEST CLINICAL INDICATION: weakness TECHNIQUE: Single frontal view of the chest COMPARISON: 11/15/2024 FINDINGS: Lungs are show no significant consolidation. No pleural effusion or pneumothorax. No vascular congestion. Heart size mildly enlarged. IMPRESSION: 1. No acute finding. Report Dictated on Electronically Signed By: Dinesh Chacon MD Electronically Signed Date/Time: 03/06/2025 11:12 PM EDT [facility] Radiology Study observation (narrative) [facility] XR Chest Single viewOrdered By: Dinesh Chacon on 03-06-2025 [facility] [employer] Work Phone: XR Elbow - left 3 Viewson Negative plain film examination of the left elbow. Report Dictated on Electronically Signed By: Mary Nielsen MD Electronically Signed Date/Time: 03/06/2025 6:47 AM EDT [facility] [place] [facility] Patient Name: JESSY WEN : 1965 Exam Date/Time: 03/06/2025 05:56 Procedure: XR ELBOW 3+ VIEWS LEFT Ordering Provider: ROTH MICHAEL Reason For Exam: pain/bruising after fall LEFT ELBOW CLINICAL INDICATION: Pain after trauma pain/bruising after fall TECHNIQUE: AP, lateral, and oblique plain film views of the left elbow. COMPARISON: None FINDINGS: No fracture or dislocation of the left elbow is identified. There is no joint effusion or radiopaque foreign body. [facility] Mary Nielsen M D - 03/06/2025 Patient Name: JESSY MCKEON : 1965 Exam Date/Time: 03/06/2025 05:56 Procedure: XR ELBOW 3+ VIEWS LEFT Ordering Provider: ROTH MICHAEL Reason For Exam: pain/bruising after fall LEFT ELBOW CLINICAL INDICATION: Pain after trauma pain/bruising after fall TECHNIQUE: AP, lateral, and oblique plain film views of the left elbow. COMPARISON: None FINDINGS: No fracture or dislocation of the left elbow is identified. There is no joint effusion or radiopaque foreign body. IMPRESSION: Negative plain film examination of the left elbow. Report Dictated on Electronically Signed By: Mary Nielsen MD Electronically Signed Date/Time: 03/06/2025 6:47 AM EDT [facility] Radiology Study observation (narrative) [facility] XR Knee - left 3 Viewson Poorly positioned study with no fracture identified. Recommend repeat views if symptoms persist. Severe osteoarthritis. Report Dictated on Electronically Signed By: Mary Nielsen MD Electronically Signed Date/Time: 03/06/2025 6:46 AM EDT [facility] Patient Name: JESSY WEN : 1965 Exam Date/Time: 03/06/2025 05:56 Procedure: XR KNEE 3 VIEWS LEFT Ordering Provider: ROTH MICHAEL Reason For Exam: pain after fall LEFT KNEE CLINICAL INDICATION: pain after fall 3 views of the left knee. COMPARISON: None FINDINGS: Limited views with poor patient positioning. A true lateral view was not performed. The patella cannot be assessed. Severe tricompartmental degenerative changes with joint space loss and large osteophytes. [facility] Mary Nielsen M D - 03/06/2025 Patient Name: JESSY MCKEON : 1965 Exam Date/Time: 03/06/2025 05:56 Procedure: XR KNEE 3 VIEWS LEFT Ordering Provider: ROTH MICHAEL Reason For Exam: pain after fall LEFT KNEE CLINICAL INDICATION: pain after fall 3 views of the left knee. COMPARISON: None FINDINGS: Limited views with poor patient positioning. A true lateral view was not performed. The patella cannot be assessed. Severe tricompartmental degenerative changes with joint space loss and large osteophytes. IMPRESSION: Poorly positioned study with no fracture identified. Recommend repeat views if symptoms persist. Severe osteoarthritis. Report Dictated on Workstation: [employer] Electronically Signed By: Mary Nielsen MD Electronically Signed Date/Time: 03/06/2025 6:46 AM EDT [facility] Radiology Study observation (narrative) [facility] [employer] XR Pelvis 1 or 2 Viewson No fracture or dislocation. Report Dictated on Workstation: [employer] Electronically Signed By: Mary Nielsen MD Electronically Signed Date/Time: 03/06/2025 6:44 AM EDT [facility] [place] [employer] [facility] Patient Name: JESSY WEN : 1965 Exam Date/Time: 03/06/2025 05:56 Procedure: XR PELVIS 1-2 VIEWS Ordering Provider: ROTH MICHAEL Reason For Exam: pain after fall AP PELVIS CLINICAL INDICATION: pain after fall A single AP view of the pelvis was obtained. COMPARISON: None. FINDINGS: No evidence of an acute fracture of the pelvis or hips. No hip dislocation. No widening of the pubic symphysis or sacroiliac joints. No focal soft tissue abnormalities. Fusion hardware in the lower lumbar spine and lumbosacral junction. L5 laminectomy. [facility] Mary Nielsen M D - 03/06/2025 [facility] 1965 [id number] Exam Date/Time: 03/06/2025 05:56 Procedure: XR PELVIS 1-2 VIEWS Ordering Provider: ROTH MICHAEL Reason For Exam: pain after fall AP PELVIS CLINICAL INDICATION: pain after fall A single AP view of the pelvis was obtained. COMPARISON: None. FINDINGS: No evidence of an acute fracture of the pelvis or hips. No hip dislocation. No widening of the pubic symphysis or sacroiliac joints. No focal soft tissue abnormalities. Fusion hardware in the lower lumbar spine and lumbosacral junction. L5 laminectomy. IMPRESSION: No fracture or dislocation. Report Dictated on Electronically Signed By: Mary Nielsen MD Electronically Signed Date/Time: 03/06/2025 6:44 AM EDT [facility] Radiology Study observation (narrative) [facility] XR Pelvis 1 or 2 ViewsOrdere d By: Mary Nielsen on 03-06-2025 [facility] [employer] Work Phone: 36on 03-05-2025 36 Jeremi with home care notified of Verbal okay Normal [facility] 36 Ok for verbal order Normal [facility] 36on 03-04-2025 36 Normal [facility] Anion gap in Serum or Plasma Ordered By: Mary Van on 02-25-2025 Anion gap [Moles/Vol] 12 mmol/L 5-15 [facility] BUN/creatinine ratioOrdered By: Mary Van on 02-25-2025 Urea nitrogen/Creatinine [Mass ratio] 9.2 mg/mg Low 10-20 [facility] Carbon dioxide, total [Moles /volume] in Central venous bloodOrdered By: Mary Van on 02-25-2025 CO2 [Moles/Vol] 19.9 mmol/L Low 21.0-32.0 [facility] Chloride assayOrdered By: Robyn Van on 02-25-2025 Chloride [Moles/Vol] 93 mmol/L Low 98-108 [facility] Glomerular filtration rate ( GFR) estimation/1.73 sq m using serum, plasma, or whole bOrdered By: Mary Van on 02-25-2025 GFR/1.73 sq M.predicted among non-blacks MDRD (S/P/Bld) [Vol rate/Area] 21 mL/min/{1.73_m2} Low >60 [facility] Comment on above: mL/min/1.73m2 CKD-EP I Creatinine Equation (2020) Potassium measurement (mass/ volume)Ordered By: Mary Van on 02-25-2025 Potassium (Unsp spec) [Mass/Vol] 4.1 mmol/L 3.3-5.1 [facility] Comment on above: Hemolysis present, R esults could be affected. Serum creatinine measurement (mass/volume)Ordered By: Mary Van on 02-25-2025 Creatinine [Mass/Vol] 2.60 mg/dL High 0.70-1.20 [facility] Serum glucose measurement (m ass/volume)Ordered By: Mary Van on 02-25-2025 Glucose [Mass/Vol] 79 mg/dL 70-99 [facility] Serum or plasma calcium niko urement (mass/volume)Ordered By: Mary Van on 02-25-2025 Calcium [Mass/Vol] 8.4 mg/dL 7.6-11.0 [facility] Serum or plasma urea nitroge n measurement (mass/volume)Ordered By: Mary Van on 02-25-2025 Urea nitrogen [Mass/Vol] 24 mg/dL High 4-19 [facility] Sodium levelOrdered By: Matthew Van on 02-25-2025 Sodium [Moles/Vol] 125 mmol/L Low 133-145 [facility] Anion gap in Serum or Plasma Ordered By: Mary Van on 02-18-2025 Anion gap [Moles/Vol] 11 mmol/L 5-15 [facility] BUN/creatinine ratioOrdered By: Mary Van on 02-18-2025 Urea nitrogen/Creatinine [Mass ratio] 9.0 mg/mg Low 10-20 [facility] Bilirubin Test strip Ql (U)O rdered By: Mary Van on 02-18-2025 Bilirubin Ql (U) Negative Negative [facility] Carbon dioxide, total [Moles /volume] in Central venous bloodOrdered By: Mary Van on 02-18-2025 CO2 [Moles/Vol] 24.1 mmol/L 21.0-32.0 [facility] Chloride assayOrdered By: Robyn Van on 02-18-2025 Chloride [Moles/Vol] 95 mmol/L Low 98-108 [facility] Glomerular filtration rate ( GFR) estimation/1.73 sq m using serum, plasma, or whole bOrdered By: Mary Van on 02-18-2025 GFR/1.73 sq M.predicted among non-blacks MDRD (S/P/Bld) [Vol rate/Area] 21 mL/min/{1.73_m2} Low >60 [facility] Comment on above: mL/min/1.73m2 CKD-EP I Creatinine Equation (2020) Ketones Test strip Ql (U)Ord ered By: Mary Van on 02-18-2025 Ketones Ql (U) Negative Negative [facility] Microscopic analysis of urin e for red blood cells (RBC)Ordered By: Mary Van on 02-18-2025 Microscopic analysis of urine for red blood cells (RBC) 0-5 SEEN /hpf 0-5 [facility] Mucus LM Ql (Urine sed)Order ed By: Mary Van on 02-18-2025 Mucus Ql (Urine sed) 0 SEEN /hpf [facility] Nitrite Test strip Ql (U)Ord ered By: Mary Van on 02-18-2025 Nitrite Ql (U) Negative Negative [facility] Osmolality urOrdered By: Morales Van on 02-18-2025 Osmolality (U) [Osmolality] 108 mOsm/KG >50 [facility] Comment on above: Normal Urine Referen ce Ranges Random: 50 - 1200 mOsm/kg H20 depending on fluid intake Random: >850 mOsm/kg after 12 hour fluid restriction 24 hour: ~300 - 900 mOsm/kg H2O Potassium measurement (mass/ volume)Ordered By: Mary Van on 02-18-2025 Potassium (Unsp spec) [Mass/Vol] 4.0 mmol/L 3.3-5.1 [facility] Protein Test strip Ql (U)Ord ered By: Mary Van on 02-18-2025 Protein Ql (U) 30 mg/dl High Negative [facility] Serum creatinine measurement (mass/volume)Ordered By: Mary Van on 02-18-2025 Creatinine [Mass/Vol] 2.61 mg/dL High 0.70-1.20 [facility] Serum glucose measurement (m ass/volume)Ordered By: Mary Van on 02-18-2025 Glucose [Mass/Vol] 83 mg/dL 70-99 [facility] Serum or plasma albumin niko urement (mass/volume)Ordered By: Mary Van on 02-18-2025 Albumin [Mass/Vol] 3.5 g/dL 3.5-5.0 [facility] Serum or plasma calcium niko urement (mass/volume)Ordered By: Mary Van on 02-18-2025 Calcium [Mass/Vol] 8.9 mg/dL 7.6-11.0 [facility] Serum or plasma urea nitroge n measurement (mass/volume)Ordered By: Mary Van on 02-18-2025 Urea nitrogen [Mass/Vol] 24 mg/dL High 4-19 [facility] Sodium levelOrdered By: Matthew Van on 02-18-2025 Sodium [Moles/Vol] 129 mmol/L Low 133-145 [facility] Squamous epithelial cells de tection in urine sediment by light microscopyOrdered By: Mary Van on 02-18-2025 Epithelial cells.squamous LM Ql (Urine sed) 0-5 SEEN /hpf 5-10 [facility] Transitional cells detection in urine sediment by light microscopyOrdered By: Mary Van on 02-18-2025 Transitional cells LM Ql (Urine sed) 0-5 SEEN /hpf 0-5 [facility] Urine clarityOrdered By: Morales Van on 02-18-2025 Clarity (U) Clear Clear [facility] Urine color determinationOrd ered By: Mary Van on 02-18-2025 Color (U) Yellow Yellow [facility] Urine cultureOrdered By: Morales Van on 02-18-2025 Bacteria identified Cx Nom (U) Staphylococcus aureus Abnormal [facility] Bacteria identified Cx Nom (U) Positive Abnormal [facility] Urine glucose detectionOrder ed By: Mary Van on 02-18-2025 Glucose Ql (U) Normal mg/dl Normal [facility] Urine leukocyte esterase det ection by dipstickOrdered By: Mary Van on 02-18-2025 Leukocyte esterase Test strip Ql (U) 500 /ul High Negative [facility] Urine pHOrdered By: Mary echols on 02-18-2025 pH (U) 7.0 [pH] 5.0 - 8.0 [facility] Urine sediment bacteria coun t by microscopy (number/high power field)Ordered By: Mary Van on 02-18-2025 Bacteria LM.HPF (Urine sed) [#/Area] 0 /[HPF] None Seen [facility] Urine specific gravity measu rementOrdered By: Mary Van on 02-18-2025 Specific gravity (U) [Rel density] 1.005 1.002-1.03 0 [facility] Urine urobilinogen measureme ntOrdered By: Mary Van on 02-18-2025 Urobilinogen Ql (U) Normal mg/dl Normal [facility] White blood cell countOrdere d By: Mary Van on 02-18-2025 White blood cell count 25-50 SEEN /hpf 0-5 [facility] Anion gap in Serum or Plasma Ordered By: Mary Van on 2025 Anion gap [Moles/Vol] 12 mmol/L 5-15 [facility] BUN/creatinine ratioOrdered By: Mary Van on 2025 Urea nitrogen/Creatinine [Mass ratio] 7.5 mg/mg Low 10-20 [facility] Carbon dioxide, total [Moles /volume] in Central venous bloodOrdered By: Mary Van on 2025 CO2 [Moles/Vol] 24.2 mmol/L 21.0-32.0 [facility] Chloride assayOrdered By: Robyn Van on 2025 Chloride [Moles/Vol] 88 mmol/L Low 98-108 [facility] Glomerular filtration rate ( GFR) estimation/1.73 sq m using serum, plasma, or whole bOrdered By: Mary Van on 2025 GFR/1.73 sq M.predicted among non-blacks MDRD (S/P/Bld) [Vol rate/Area] 20 mL/min/{1.73_m2} Low >60 [facility] Comment on above: mL/min/1.73m2 CKD-EP I Creatinine Equation (2020) Potassium measurement (mass/ volume)Ordered By: Mary Van on 2025 Potassium (Unsp spec) [Mass/Vol] 3.8 mmol/L 3.3-5.1 [facility] Serum creatinine measurement (mass/volume)Ordered By: Mary Van on 2025 Creatinine [Mass/Vol] 2.64 mg/dL High 0.70-1.20 [facility] Serum glucose measurement (m ass/volume)Ordered By: Mary Van on 2025 Glucose [Mass/Vol] 90 mg/dL 70-99 [facility] Serum or plasma calcium niko urement (mass/volume)Ordered By: Mary Van on 2025 Calcium [Mass/Vol] 8.8 mg/dL 7.6-11.0 [facility] Serum or plasma urea nitroge n measurement (mass/volume)Ordered By: Mary Van on 2025 Urea nitrogen [Mass/Vol] 20 mg/dL High 4-19 [facility] Sodium levelOrdered By: Matthew Van on 2025 Sodium [Moles/Vol] 125 mmol/L Low 133-145 [facility] TSH DL <= 0.005 mIU/L QnOrde red By: Mary Van on 02-08-2025 TSH Qn 5.760 uIU/mL High 0.300-4.20 0 [facility] Anion gap in Serum or Plasma Ordered By: Mary Van on 02-04-2025 Anion gap [Moles/Vol] 11 mmol/L 5-15 [facility] BUN/creatinine ratioOrdered By: Mary Van on 02-04-2025 Urea nitrogen/Creatinine [Mass ratio] 9.8 mg/mg Low 10-20 [facility] Carbon dioxide, total [Moles /volume] in Central venous bloodOrdered By: Mary Van on 02-04-2025 CO2 [Moles/Vol] 24.4 mmol/L 21.0-32.0 [facility] Chloride assayOrdered By: Robyn Van on 02-04-2025 Chloride [Moles/Vol] 89 mmol/L Low 98-108 [facility] Glomerular filtration rate ( GFR) estimation/1.73 sq m using serum, plasma, or whole bOrdered By: Mary Van on 02-04-2025 GFR/1.73 sq M.predicted among non-blacks MDRD (S/P/Bld) [Vol rate/Area] 23 mL/min/{1.73_m2} Low >60 [facility] Comment on above: mL/min/1.73m2 CKD-EP I Creatinine Equation (2020) Potassium measurement (mass/ volume)Ordered By: Mary Van on 02-04-2025 Potassium (Unsp spec) [Mass/Vol] 3.7 mmol/L 3.3-5.1 [facility] Serum creatinine measurement (mass/volume)Ordered By: Mary Van on 02-04-2025 Creatinine [Mass/Vol] 2.41 mg/dL High 0.70-1.20 [facility] Serum glucose measurement (m ass/volume)Ordered By: Mary Van on 02-04-2025 Glucose [Mass/Vol] 90 mg/dL 70-99 [facility] Serum or plasma calcium niko urement (mass/volume)Ordered By: Mary Van on 02-04-2025 Calcium [Mass/Vol] 8.4 mg/dL 7.6-11.0 [facility] Serum or plasma urea nitroge n measurement (mass/volume)Ordered By: Mary Van on 02-04-2025 Urea nitrogen [Mass/Vol] 24 mg/dL High 4-19 [facility] Sodium levelOrdered By: Matthew Van on 02-04-2025 Sodium [Moles/Vol] 124 mmol/L Low 133-145 [facility] Anion gap in Serum or Plasma Ordered By: Mary Van on 01-28-2025 Anion gap [Moles/Vol] 12 mmol/L 5-15 [facility] BUN/creatinine ratioOrdered By: Mary Van on 01-28-2025 Urea nitrogen/Creatinine [Mass ratio] 9.9 mg/mg Low 10-20 [facility] Carbon dioxide, total [Moles /volume] in Central venous bloodOrdered By: Mary Van on 01-28-2025 CO2 [Moles/Vol] 21.5 mmol/L 21.0-32.0 [facility] Chloride assayOrdered By: Robyn Van on 01-28-2025 Chloride [Moles/Vol] 91 mmol/L Low 98-108 [facility] Glomerular filtration rate ( GFR) estimation/1.73 sq m using serum, plasma, or whole bOrdered By: Mary aVn on 01-28-2025 GFR/1.73 sq M.predicted among non-blacks MDRD (S/P/Bld) [Vol rate/Area] 22 mL/min/{1.73_m2} Low >60 [facility] Comment on above: mL/min/1.73m2 CKD-EP I Creatinine Equation (2020) Potassium measurement (mass/ volume)Ordered By: Mary Van on 01-28-2025 Potassium (Unsp spec) [Mass/Vol] 3.7 mmol/L 3.3-5.1 [facility] Serum creatinine measurement (mass/volume)Ordered By: Mary Van on 01-28-2025 Creatinine [Mass/Vol] 2.53 mg/dL High 0.70-1.20 [facility] Serum glucose measurement (m ass/volume)Ordered By: Mary Van on 01-28-2025 Glucose [Mass/Vol] 92 mg/dL 70-99 [facility] Serum or plasma calcium niko urement (mass/volume)Ordered By: Mary Van on 01-28-2025 Calcium [Mass/Vol] 8.8 mg/dL 7.6-11.0 [facility] Serum or plasma urea nitroge n measurement (mass/volume)Ordered By: Mary Van on 01-28-2025 Urea nitrogen [Mass/Vol] 25 mg/dL High 4-19 [facility] Sodium levelOrdered By: Matthew Van on 01-28-2025 Sodium [Moles/Vol] 125 mmol/L Low 133-145 [facility] Anion gap in Serum or Plasma Ordered By: Mary Van on 01-21-2025 Anion gap [Moles/Vol] 11 mmol/L 5-15 [facility] BUN/creatinine ratioOrdered By: Mary Van on 01-21-2025 Urea nitrogen/Creatinine [Mass ratio] 12.1 mg/mg 10-20 [facility] Bilirubin, totalOrdered By: Mary Van on 01-21-2025 Bilirubin [Mass/Vol] 0.19 mg/dL 0.00-1.30 [facility] Carbon dioxide, total [Moles /volume] in Central venous bloodOrdered By: Mary Van on 01-21-2025 CO2 [Moles/Vol] 23.3 mmol/L 21.0-32.0 [facility] Chloride assayOrdered By: marli Van on 01-21-2025 Chloride [Moles/Vol] 94 mmol/L Low 98-108 [facility] Erythrocyte distribution wid th ratioOrdered By: Mary Van on 01-21-2025 Erythrocyte distribution width (RBC) [Ratio] 16.6 % High 11.6-14.6 [facility] Erythrocyte distribution wid th standard deviationOrdered By: Mary Van on 01-21-2025 Erythrocyte distribution width (RBC) [Ratio] 59.2 fl High 35.1-43.9 [facility] Glomerular filtration rate ( GFR) estimation/1.73 sq m using serum, plasma, or whole bOrdered By: Mary Van on 01-21-2025 GFR/1.73 sq M.predicted among non-blacks MDRD (S/P/Bld) [Vol rate/Area] 20 mL/min/{1.73_m2} Low >60 [facility] Comment on above: mL/min/1.73m2 CKD-EP I Creatinine Equation (2020) Hematocrit Auto (Bld) [Volum e fraction]Ordered By: Mary Van on 01-21-2025 Hematocrit (Bld) [Volume fraction] 27.6 % Low 37-47 [facility] Hemoglobin measurementOrdere d By: Mary Van on 01-21-2025 Hemoglobin (Bld) [Mass/Vol] 8.9 g/dL Low 12.0-15.0 [facility] Laboratory - Chemistry and C hemistry - challengeOrdered By: Mary Van on 01-21-2025 AST [Catalytic activity/Vol] 14 U/L <32 [facility] MCV (mean corpuscular volume ) determinationOrdered By: Mary Van on 01-21-2025 MCV (RBC) [Entitic vol] 98.2 fL 81-99 [facility] Mean corpuscular hemoglobin (MCH) determinationOrdered By: Mary Van on 01-21-2025 MCH (RBC) [Entitic mass] 31.7 pg 27.0-32.0 [facility] Mean corpuscular hemoglobin concentration (MCHC) determinationOrdered By: Mary Van on 01-21-2025 MCHC (RBC) [Mass/Vol] 32.2 g/dL 32-36 [facility] Mean platelet volume determi nationOrdered By: Mary Van on 01-21-2025 Platelet mean volume (Bld) [Entitic vol] 9.4 fL 6.2-12.0 [facility] Platelet countOrdered By: Robyn Van on 01-21-2025 Platelets (Bld) [#/Vol] 244 10*3/uL 150-450 [facility] Potassium measurement (mass/ volume)Ordered By: Mary Van on 01-21-2025 Potassium (Unsp spec) [Mass/Vol] 4.2 mmol/L 3.3-5.1 [facility] RBC Auto (Bld) [#/Vol]Ordere d By: Mary Van on 01-21-2025 RBC (Bld) [#/Vol] 2.81 10*6/uL Low 4.2-5.4 [facility] Serum creatinine measurement (mass/volume)Ordered By: Mary Van on 01-21-2025 Creatinine [Mass/Vol] 2.67 mg/dL High 0.70-1.20 [facility] Serum globulin measurementOr dered By: Mary Van on 01-21-2025 Globulin (S) [Mass/Vol] 3.3 g/dL 2.2-4.2 [facility] Serum glucose measurement (m ass/volume)Ordered By: Mary Van on 01-21-2025 Glucose [Mass/Vol] 89 mg/dL 70-99 [facility] Serum or plasma alanine sage otransferase (ALT) measurementOrdered By: Mary Van on 01-21-2025 ALT [Catalytic activity/Vol] 5 U/L <35 [facility] Serum or plasma albumin niko urement (mass/volume)Ordered By: Mary Van on 01-21-2025 Albumin [Mass/Vol] 3.2 g/dL Low 3.5-5.0 [facility] Serum or plasma albumin/glob ulin mass ratioOrdered By: Mary Van on 01-21-2025 Albumin/Globulin [Mass ratio] 1.0 {ratio} 0.9-2.4 [facility] Serum or plasma alkaline roland sphatase measurementOrdered By: Mary Van on 01-21-2025 ALP [Catalytic activity/Vol] 58 U/L 35-104 [facility] Serum or plasma calcium niko urement (mass/volume)Ordered By: Mary Van on 01-21-2025 Calcium [Mass/Vol] 9.0 mg/dL 7.6-11.0 [facility] Serum or plasma urea nitroge n measurement (mass/volume)Ordered By: Mary Van on 01-21-2025 Urea nitrogen [Mass/Vol] 32 mg/dL High 4-19 [facility] Sodium levelOrdered By: Matthew Van on 01-21-2025 Sodium [Moles/Vol] 129 mmol/L Low 133-145 [facility] Total proteinOrdered By: Morales Van on 01-21-2025 Protein [Mass/Vol] 6.4 g/dL 5.9-8.4 [facility] White blood cell (WBC) count Ordered By: Mary aVn on 01-21-2025 WBC (Bld) [#/Vol] 5.9 10*3/uL 4.4-11.0 [facility] Anion gap in Serum or Plasma Ordered By: Mary Van on 01-17-2025 Anion gap [Moles/Vol] 10 mmol/L 5-15 [facility] BUN/creatinine ratioOrdered By: Mary Van on 01-17-2025 Urea nitrogen/Creatinine [Mass ratio] 12.5 mg/mg 10-20 [facility] Bilirubin, totalOrdered By: Mary Van on 01-17-2025 Bilirubin [Mass/Vol] 0.22 mg/dL 0.00-1.30 [facility] Calculated very low density lipoprotein (VLDL) cholesterol measurementOrdered By: Mary Van on 01-17-2025 Calculated very low density lipoprotein (VLDL) cholesterol measurement 15 mg/dL 5-40 [facility] Carbon dioxide, total [Moles /volume] in Central venous bloodOrdered By: Mary Van on 01-17-2025 CO2 [Moles/Vol] 23.5 mmol/L 21.0-32.0 [facility] Chloride assayOrdered By: Robyn Van on 01-17-2025 Chloride [Moles/Vol] 101 mmol/L 98-108 [facility] Erythrocyte distribution wid th ratioOrdered By: Mary Van on 01-17-2025 Erythrocyte distribution width (RBC) [Ratio] 17.4 % High 11.6-14.6 [facility] Erythrocyte distribution wid th standard deviationOrdered By: Mary Van on 01-17-2025 Erythrocyte distribution width (RBC) [Ratio] 64.2 fl High 35.1-43.9 [facility] Glomerular filtration rate ( GFR) estimation/1.73 sq m using serum, plasma, or whole bOrdered By: Mary Van on 01-17-2025 GFR/1.73 sq M.predicted among non-blacks MDRD (S/P/Bld) [Vol rate/Area] 18 mL/min/{1.73_m2} Low >60 [facility] Comment on above: mL/min/1.73m2 CKD-EP I Creatinine Equation (2020) Hematocrit Auto (Bld) [Volum e fraction]Ordered By: Mary Van on 01-17-2025 Hematocrit (Bld) [Volume fraction] 26.6 % Low 37-47 [facility] Hemoglobin measurementOrdere d By: Mary Van on 01-17-2025 Hemoglobin (Bld) [Mass/Vol] 8.4 g/dL Low 12.0-15.0 [facility] LDL calc ser/plasOrdered By: Mary Van on 01-17-2025 Cholesterol in LDL [Mass/Vol] 63 mg/dL [facility] Comment on above: Hbpijhhubs=019-834 m g/dL & Higher Fgzb=908 mg/dL or greater Laboratory - Chemistry and C hemistry - challengeOrdered By: Mary Van on 01-17-2025 AST [Catalytic activity/Vol] 16 U/L <32 [facility] MCV (mean corpuscular volume ) determinationOrdered By: Mary Van on 01-17-2025 MCV (RBC) [Entitic vol] 101.5 fL High 81-99 [facility] Magnesium measurement (mass/ volume)Ordered By: Mary Vna on 01-17-2025 Magnesium (Unsp spec) [Mass/Vol] 2.5 mg/dL High 1.5-2.2 [facility] Mean corpuscular hemoglobin (MCH) determinationOrdered By: Mary Van on 01-17-2025 MCH (RBC) [Entitic mass] 32.1 pg High 27.0-32.0 [facility] Mean corpuscular hemoglobin concentration (MCHC) determinationOrdered By: Mary Van on 01-17-2025 MCHC (RBC) [Mass/Vol] 31.6 g/dL Low 32-36 [facility] Mean platelet volume determi nationOrdered By: Mary Van on 01-17-2025 Platelet mean volume (Bld) [Entitic vol] 9.4 fL 6.2-12.0 [facility] Platelet countOrdered By: Robyn Van on 01-17-2025 Platelets (Bld) [#/Vol] 227 10*3/uL 150-450 [facility] Potassium measurement (mass/ volume)Ordered By: Mary Van on 01-17-2025 Potassium (Unsp spec) [Mass/Vol] 4.4 mmol/L 3.3-5.1 [facility] RBC Auto (Bld) [#/Vol]Ordere d By: Mary Van on 01-17-2025 RBC (Bld) [#/Vol] 2.62 10*6/uL Low 4.2-5.4 [facility] Screening total cholesterol/ high density lipoprotein (HDL) cholesterol ratioOrdered By: Mary Van on 01-17-2025 Cholesterol.total/Chol esterol in HDL [Mass ratio] 3.12 {ratio} [facility] Serum creatinine measurement (mass/volume)Ordered By: Mary Van on 01-17-2025 Creatinine [Mass/Vol] 2.96 mg/dL High 0.70-1.20 [facility] Serum globulin measurementOr dered By: Mary Van on 01-17-2025 Globulin (S) [Mass/Vol] 3.3 g/dL 2.2-4.2 [facility] Serum glucose measurement (m ass/volume)Ordered By: Mary Van on 01-17-2025 Glucose [Mass/Vol] 84 mg/dL 70-99 [facility] Serum or plasma alanine sage otransferase (ALT) measurementOrdered By: Mary Van on 01-17-2025 ALT [Catalytic activity/Vol] 5 U/L <35 [facility] Serum or plasma albumin niko urement (mass/volume)Ordered By: Mary Van on 01-17-2025 Albumin [Mass/Vol] 2.9 g/dL Low 3.5-5.0 [facility] Serum or plasma albumin/glob ulin mass ratioOrdered By: Mary Van on 01-17-2025 Albumin/Globulin [Mass ratio] 0.9 {ratio} 0.9-2.4 [facility] Serum or plasma alkaline roland sphatase measurementOrdered By: Mary Van on 01-17-2025 ALP [Catalytic activity/Vol] 58 U/L 35-104 [facility] Serum or plasma calcium niko urement (mass/volume)Ordered By: Mary Van on 01-17-2025 Calcium [Mass/Vol] 9.0 mg/dL 7.6-11.0 [facility] Serum or plasma cholesterol in HDL measurement (mass/volume)Ordered By: Mary Van on 01-17-2025 Cholesterol in HDL [Mass/Vol] 37 mg/dL Low >40 [facility] Comment on above: National Cholesterol Education Program (NCEP) guidelines:<40 mg/dL: Low HDL-cholesterol (major risk factor for CHD)>= 60 mg/dL: High HDL-cholesterol (negative risk factor for CHD)HDL-cholesterol is affected by a number of factors, e.g. smoking, exercise, hormones, sex and age. Serum or plasma cholesterol measurement (mass/volume)Ordered By: Mary Van on 01-17-2025 Cholesterol [Mass/Vol] 115 mg/dL <201 [facility] Comment on above: Cholesterol level, D esirable <200 mg/dLBorderline high cholesterol 200-239 mg/dLHigh cholesterol >=240 mg/dLRecommendations of the NCEP Adult Treatment Panel for the following risk-cutoff thresholds for the [place] population. Serum or plasma urea nitroge n measurement (mass/volume)Ordered By: Mary Van on 01-17-2025 Urea nitrogen [Mass/Vol] 37 mg/dL High 4-19 [facility] Sodium levelOrdered By: Matthew Van on 01-17-2025 Sodium [Moles/Vol] 134 mmol/L 133-145 [facility] TSH DL <= 0.005 mIU/L QnOrde red By: Mary Van on 01-17-2025 TSH Qn 14.100 uIU/mL High 0.300-4.20 0 [facility] Total proteinOrdered By: Morales Van on 01-17-2025 Protein [Mass/Vol] 6.2 g/dL 5.9-8.4 [facility] Triglycerides measurementOrd ered By: Mary Van on 01-17-2025 Triglyceride [Mass/Vol] 75 mg/dL <199 [facility] Comment on above: The drugs N-Acetylcy steine and Metamizole may falsely depress this assay. Normal range: <150 mg/dLBorderline High: 150-199 mg/dLHigh: 200-499 mg/dLVery High: >500 mg/dL White blood cell (WBC) count Ordered By: Mary Van on 01-17-2025 WBC (Bld) [#/Vol] 5.3 10*3/uL 4.4-11.0 [facility] 36on 01-16-2025 36 Called patient jg hudson. Its her assisted living facility. They stated she is still admitted. [facility] 36 Please schedule a ho spital follow-up. [facility] [id number] 01-15-2025 [id number] [facility] [id number] 01-15-2025 [id number] [facility] [id number] MAR & Discharge med list transmitted to Joy Wiggins via [employer] per TCC request. Normal [facility] [id number] Normal [facility] [id number] Normal [facility] BASIC METABOLIC PANELon 06-0 Anion gap [Moles/Vol] 7 mmol/L Normal 3-13 [facility] Comment on above: Performed By: #### L [id number] ####Pin Setter: JULI JONES ([id number])[facility])[address] [place] [address] Calcium [Mass/Vol] 9.0 mg/dL Normal 8.4-10.2 [facility] Comment on above: Performed By: #### L [id number] ####Pin Setter: JULI JONES ([id number])[facility] ([facility])[address] [place] [address] Chloride [Moles/Vol] 106 mmol/L Normal 98-107 [facility] Comment on above: Performed By: #### L [id number] ####Pin Setter: JULI JONES ([id number])[facility])[address] [place] [address] CO2 [Moles/Vol] 24 mmol/L Normal 22-29 [facility] Comment on above: Performed By: #### L AB15 ####Pin Setter: JULI JONES ([id number])[facility])[address] [place] [address] Creatinine [Mass/Vol] 2.67 mg/dL High 0.57-1.11 [facility] Comment on above: Performed By: #### L AB15 ####Pin Setter: JULI JONES ([id number])[facility])[address] [place] [address] GLOMERULAR FILTRATION RATE ML/MIN/1.73 SQ M.PREDICTED 20.3 mL/min/1.73m*2 Low >60.0 [facility] Comment on above: Result Comment: Calc ulation based on the Chronic Kidney Disease Epidemiology Collaboration (CKD-EPI) equation refit without adjustment for race Performed By: #### L [id number] ####Pin Setter: JULI JONES ([id number])[facility])[address] [place] [address] Glucose [Mass/Vol] 86 mg/dL Normal 74-100 [facility] Comment on above: Performed By: #### L [id number] ####Pin Setter: JULI JONES ([id number])[facility])[address] [place] [address] Potassium [Moles/Vol] 5.0 mmol/L Normal 3.5-5.1 [facility] Comment on above: Result Comment: [facility] potassium values may be up to 0.5 mmol/L lower than serum values. Performed By: #### L AB15 ####Pin Setter: JULI JONES ([id number])[facility])[address] [place] [address] Sodium [Moles/Vol] 137 mmol/L Normal 136-145 [facility] Comment on above: Performed By: #### L AB15 ####Pin Setter: JULI JONES ([id number])[facility])[address] [place] [address] Urea nitrogen [Mass/Vol] 40 mg/dL High 9-23 [facility] Comment on above: Performed By: #### L AB15 ####Pin Setter: JULI JONES ([id number])[address] Basic metabolic 1998 panelon 01-15-2025 Anion gap [Moles/Vol] 7 mmol/L 3 - 13 mmol/L [facility] Calcium [Mass/Vol] 9 mg/dL 8.4 - 10. 2 mg/dL [facility] Chloride [Moles/Vol] 106 mmol/L 98 - 10 7 mmol/L [facility] CO2 [Moles/Vol] 24 mmol/L 22 - 29 mmol/L [facility] Creatinine [Mass/Vol] 2.67 mg/dL High 0.57 - 1.11 mg/dL [facility] GFR/1.73 sq M.predicted (S/P/Bld) [Vol rate/Area] 20.3 mL/min Low - PINF [facility] Comment on above: Calculation based on the Chronic Kidney Disease Epidemiology Collaboration (CKD-EPI) equation refit without adjustment for race Glucose [Mass/Vol] 86 mg/dL 74 - 100 mg/dL [facility] Interpretation and review of laboratory results Abnormal [facility] Potassium [Moles/Vol] 5 mmol/L 3.5 - 5.1 mmol/L [facility] Comment on above: Plasma potassium batsheva ues may be up to 0.5 mmol/L lower than serum values. Sodium [Moles/Vol] 137 mmol/L 136 - 145 mmol/L [facility] Urea nitrogen [Mass/Vol] 40 mg/dL High 9 - 23 mg/dL [facility] CBC (HEMOGRAM)on 01-15-2025 Erythrocyte distribution width (RBC) [Ratio] 17.1 % High 11.5-15.0 [facility] Comment on above: Performed By: #### L [id number] ####Pin Setter: JULI JONES ([id number])[address] Hematocrit (Bld) [Volume fraction] 26.5 % Low 35.0-47.0 [facility] Comment on above: Performed By: #### L [id number] ####Pin Setter: JULI [id number])[address] Hemoglobin (Bld) [Mass/Vol] 8.1 g/dL Low 11.7-16.0 [facility] Comment on above: Performed By: #### L [id number] ####Pin Setter: JULI [id number])[address] MCH (RBC) [Entitic mass] 31.6 pg Normal 26.0-34.0 [facility] Comment on above: Performed By: #### L [id number] ####Pin Setter: JULI [id number])[facility] ([facility])[address] [place] [address] MCHC 30.6 % Normal 30.5-36.0 [facility] Comment on above: Performed By: #### L [id number] ####Pin Setter: JULI JONES ([id number])[facility] ([facility])[address] [place] [address] MCV (RBC) [Entitic vol] 103.5 fL High 77.0-99.0 [facility] Comment on above: Performed By: #### L [id number] ####Pin Setter: JULI JONES ([id number])[facility] ([facility])[address] [place] [address] Platelet mean volume (Bld) [Entitic vol] 9.0 fL Normal 9.0-12.7 [facility] Comment on above: Performed By: #### L [id number] ####Pin Setter: JULI JONES ([id number])[facility] ([facility])[address] [place] [address] Platelets (Bld) [#/Vol] 220 10*3/uL Normal 140-440 [facility] Comment on above: Performed By: #### L [id number] ####Pin Setter: JULI JONES ([id number])[facility] ([facility])[address] [place] [address] RBC (Bld) [#/Vol] 2.56 10*6/uL Low 3.80-5.20 [facility] Comment on above: Performed By: #### L [id number] ####Pin Setter: JULI JONES ([id number])[facility] ([facility])[address] [place] [address] WBC (Bld) [#/Vol] 4.4 10*3/uL Normal 3.6-10.7 [facility] Comment on above: Performed By: #### L [id number] ####Pin Setter: JULI JONES ([id number])[facility] ([facility])[address] [place] [address] CBC panel Auto (Bld)Ordered By: Caridad Briggs on 01-15-2025 Erythrocyte distribution width (RBC) [Ratio] 17.1 % High 11.5 - 15.0 % [facility] Hematocrit (Bld) [Volume fraction] 26.5 % Low 35.0 - 47.0 % [facility] Hemoglobin (Bld) [Mass/Vol] 8.1 g/dL Low 11.7 - 16.0 g/dL [facility] Interpretation and review of laboratory results Abnormal [facility] MCH (RBC) [Entitic mass] 31.6 pg 26.0 - 34.0 pg [facility] MCHC (RBC) [Mass/Vol] 30.6 % 30.5 - 36.0 % [facility] MCV (RBC) [Entitic vol] 103.5 fL High 77.0 - 99.0 fL [facility] Platelet mean volume (Bld) [Entitic vol] 9 fL 9.0 - 12.7 fL [facility] Platelets (Bld) [#/Vol] 220 10*3/uL 140 - 440 10*3/uL [facility] RBC (Bld) [#/Vol] 2.56 10*6/uL Low 3.80 - 5.20 10*6/uL [facility] WBC (Bld) [#/Vol] 4.4 10*3/uL 3.6 - 10.7 10*3/uL [facility] Laboratory - Chemistry and C hemistry - challengeon 01-15-2025 Glucose [Mass/Vol] 106 mg/dL High 70 - 100 mg/dL [facility] No Panel Informationon 01-15 Interpretation and review of laboratory results Abnormal [facility] Performed by: [facility], [address] [place] [id number] CLIA ID: [id number] [facility] Nursing Noteon 01-15-2025 Nursing Note RN attempted to call report to [facility] Rosalie. Was told nobody was available to take report. RN left name, and unit number. Normal [facility] Progress Noteon 01-15-2025 Progress Note Normal [facility] Progress Note Normal [facility] BASIC METABOLIC PANELon Anion gap [Moles/Vol] 7 mmol/L Normal 3-13 [facility] Comment on above: Performed By: #### L [id number] ####Pin Setter: JULI JONES ([id number])[facility])[address] [place] [address] Calcium [Mass/Vol] 9.4 mg/dL Normal 8.4-10.2 [facility] Comment on above: Performed By: #### L AB15 ####Pin Setter: JULI JONES ([id number])[facility] ([facility])[address] [place] [address] Chloride [Moles/Vol] 104 mmol/L Normal 98-107 [facility] Comment on above: Performed By: #### L AB15 ####Pin Setter: JULI JNOES ([id number])[facility] ([facility])[address] [place] [address] CO2 [Moles/Vol] 26 mmol/L Normal 22-29 [facility] Comment on above: Performed By: #### L AB15 ####Pin Setter: JULI JONES ([id number])[facility] ([facility])[address] [place] [address] Creatinine [Mass/Vol] 2.63 mg/dL High 0.57-1.11 [facility] Comment on above: Performed By: #### L AB15 ####Pin Setter: JULI JONES ([id number])[facility] ([facility])[address] [place] [address] [place] GLOMERULAR FILTRATION RATE ML/MIN/1.73 SQ M.PREDICTED 20.6 mL/min/1.73m*2 Low >60.0 [facility] Comment on above: Result Comment: Calc ulation based on the Chronic Kidney Disease Epidemiology Collaboration (CKD-EPI) equation refit without adjustment for race Performed By: #### L AB15 ####Pin Setter: JULI JONES ([id number])[facility] [place] [address] [place] Glucose [Mass/Vol] 83 mg/dL Normal 74-100 [facility] Comment on above: Performed By: #### L AB15 ####Pin Setter: JULI JONES ([id number])[facility] ([facility])[address] [place] [address] Potassium [Moles/Vol] 4.8 mmol/L Normal 3.5-5.1 [facility] Comment on above: Result Comment: [facility] potassium values may be up to 0.5 mmol/L lower than serum values. Performed By: #### L AB15 ####Pin Setter: JULI JONES ([id number])[facility] [place] [address] Sodium [Moles/Vol] 137 mmol/L Normal 136-145 [facility] Comment on above: Performed By: #### L AB15 ####Pin Setter: JULI JONES ([id number])[facility] ([facility])[address] [place] [address] Urea nitrogen [Mass/Vol] 41 mg/dL High 9-23 [facility] Comment on above: Performed By: #### L AB15 ####Pin Setter: JULI JONES ([id number])[facility] ([facility])[address] [place] [address] Basic metabolic 1998 panelon 01-14-2025 Anion gap [Moles/Vol] 7 mmol/L 3 - 13 mmol/L [facility] Calcium [Mass/Vol] 9.4 mg/dL 8.4 - 10. 2 mg/dL [facility] Chloride [Moles/Vol] 104 mmol/L 98 - 10 7 mmol/L [facility] CO2 [Moles/Vol] 26 mmol/L 22 - 29 mmol/L [facility] Creatinine [Mass/Vol] 2.63 mg/dL High 0.57 - 1.11 mg/dL [facility] GFR/1.73 sq M.predicted (S/P/Bld) [Vol rate/Area] 20.6 mL/min Low - PINF [facility] Comment on above: Calculation based on the Chronic Kidney Disease Epidemiology Collaboration (CKD-EPI) equation refit without adjustment for race Glucose [Mass/Vol] 83 mg/dL 74 - 100 mg/dL [facility] Interpretation and review of laboratory results Abnormal [facility] Potassium [Moles/Vol] 4.8 mmol/L 3.5 - 5.1 mmol/L [facility] Comment on above: Plasma potassium batsheva ues may be up to 0.5 mmol/L lower than serum values. Sodium [Moles/Vol] 137 mmol/L 136 - 145 mmol/L [facility] Urea nitrogen [Mass/Vol] 41 mg/dL High 9 - 23 mg/dL [facility] CBC (HEMOGRAM)on 01-14-2025 Erythrocyte distribution width (RBC) [Ratio] 17.2 % High 11.5-15.0 [facility] Comment on above: Performed By: #### L [id number] ####Pin Setter: JULI JONES ([id number])[address] Hematocrit (Bld) [Volume fraction] 28.7 % Low 35.0-47.0 [facility] Comment on above: Performed By: #### L [id number] ####Pin Setter: JULI JONES ([id number])[facility])[address] [place] [address] Hemoglobin (Bld) [Mass/Vol] 8.9 g/dL Low 11.7-16.0 [facility] Comment on above: Performed By: #### L [id number] ####Pin Setter: JULI JONES ([id number])[address] MCH (RBC) [Entitic mass] 31.9 pg Normal 26.0-34.0 [facility] Comment on above: Performed By: #### L [id number] ####Pin Setter: JULI JONES ([id number])[facility])[address] [place] [address] MCHC 31.0 % Normal 30.5-36.0 [facility] Comment on above: Performed By: #### L [id number] ####Pin Setter: JULI JONES ([id number])[facility])[address] [place] [address] MCV (RBC) [Entitic vol] 102.9 fL High 77.0-99.0 [facility] Comment on above: Performed By: #### L [id number] ####Pin Setter: JULI JONES ([id number])[facility] ([facility])[address] [place] [address] Platelet mean volume (Bld) [Entitic vol] 9.0 fL Normal 9.0-12.7 [facility] Comment on above: Performed By: #### L [id number] ####Pin Setter: JULI JONES ([id number])[facility] ([facility])[address] [place] [address] Platelets (Bld) [#/Vol] 248 10*3/uL Normal 140-440 [facility] Comment on above: Performed By: #### L [id number] ####Pin Setter: JULI JONES ([id number])[facility] ([facility])[address] [place] [address] RBC (Bld) [#/Vol] 2.79 10*6/uL Low 3.80-5.20 [facility] Comment on above: Performed By: #### L [id number] ####Pin Setter: JULI JONES ([id number])[facility] ([facility])[address] [place] [address] WBC (Bld) [#/Vol] 4.9 10*3/uL Normal 3.6-10.7 [facility] Comment on above: Performed By: #### L [id number] ####Pin Setter: JULI JONES ([id number])[facility] ([facility])[address] [place] [address] CBC panel Auto (Bld)on 01-14 Erythrocyte distribution width (RBC) [Ratio] 17.2 % High 11.5 - 15.0 % [facility] Hematocrit (Bld) [Volume fraction] 28.7 % Low 35.0 - 47.0 % [facility] Hemoglobin (Bld) [Mass/Vol] 8.9 g/dL Low 11.7 - 16.0 g/dL [facility] Interpretation and review of laboratory results Abnormal [facility] MCH (RBC) [Entitic mass] 31.9 pg 26.0 - 34.0 pg [facility] MCHC (RBC) [Mass/Vol] 31 % 30.5 - 36.0 % [facility] MCV (RBC) [Entitic vol] 102.9 fL High 77.0 - 99.0 fL [facility] Platelet mean volume (Bld) [Entitic vol] 9 fL 9.0 - 12.7 fL [facility] Platelets (Bld) [#/Vol] 248 10*3/uL 140 - 440 10*3/uL [facility] RBC (Bld) [#/Vol] 2.79 10*6/uL Low 3.80 - 5.20 10*6/uL [facility] WBC (Bld) [#/Vol] 4.9 10*3/uL 3.6 - 10.7 10*3/uL [facility] Progress Noteon 01-14-2025 Progress Note Normal [facility] 30on 01-13-2025 30 Normal [facility] [id number] 01-13-2025 [id number] Normal [facility] BASIC METABOLIC PANELon 06-0 Anion gap [Moles/Vol] 8 mmol/L Normal 3-13 [facility] Comment on above: Performed By: #### L AB15 ####Pin Setter: JULI JONES ([id number])[facility])[address] [place] [address] Calcium [Mass/Vol] 9.3 mg/dL Normal 8.4-10.2 [facility] Comment on above: Performed By: #### L AB15 ####Pin Setter: JULI JONES ([id number])[facility] ([facility])[address] [place] [address] [place] Chloride [Moles/Vol] 104 mmol/L Normal 98-107 [facility] Comment on above: Performed By: #### L AB15 ####Pin Setter: JULI JONES ([id number])[facility] ([facility])[address] [place] [address] [place] CO2 [Moles/Vol] 26 mmol/L Normal 22-29 [facility] Comment on above: Performed By: #### L AB15 ####Pin Setter: JULI JONES ([id number])[facility])[address] [place] [address] Creatinine [Mass/Vol] 2.71 mg/dL High 0.57-1.11 [facility] Comment on above: Performed By: #### L AB15 ####Pin Setter: JULI JONES ([id number])[facility])[address] [place] [address] GLOMERULAR FILTRATION RATE ML/MIN/1.73 SQ M.PREDICTED 19.9 mL/min/1.73m*2 Low >60.0 [facility] Comment on above: Result Comment: Calc ulation based on the Chronic Kidney Disease Epidemiology Collaboration (CKD-EPI) equation refit without adjustment for race Performed By: #### L AB15 ####Pin Setter: JULI JONES ([id number])[facility])[address] [place] [address] Glucose [Mass/Vol] 86 mg/dL Normal 74-100 [facility] Comment on above: Performed By: #### L AB15 ####Pin Setter: JULI JONES ([id number])[address] Potassium [Moles/Vol] 4.8 mmol/L Normal 3.5-5.1 [facility] Comment on above: Result Comment: [facility] potassium values may be up to 0.5 mmol/L lower than serum values. Performed By: #### L AB15 ####Pin Setter: JULI JONES ([id number])[facility])[address] [place] [address] Sodium [Moles/Vol] 138 mmol/L Normal 136-145 [facility] Comment on above: Performed By: #### L AB15 ####Pin Setter: JULI JONES ([id number])[facility])[address] [place] [address] [place] Urea nitrogen [Mass/Vol] 45 mg/dL High 9-23 [facility] Comment on above: Performed By: #### L AB15 ####Pin Setter: JULI JONES ([id number])[facility] ([facility])[address] [place] [address] Basic metabolic 1998 panelon 01-13-2025 Anion gap [Moles/Vol] 8 mmol/L 3 - 13 mmol/L [facility] Calcium [Mass/Vol] 9.3 mg/dL 8.4 - 10. 2 mg/dL [facility] Chloride [Moles/Vol] 104 mmol/L 98 - 10 7 mmol/L [facility] CO2 [Moles/Vol] 26 mmol/L 22 - 29 mmol/L [facility] Creatinine [Mass/Vol] 2.71 mg/dL High 0.57 - 1.11 mg/dL [facility] GFR/1.73 sq M.predicted (S/P/Bld) [Vol rate/Area] 19.9 mL/min Low - PINF [facility] Comment on above: Calculation based on the Chronic Kidney Disease Epidemiology Collaboration (CKD-EPI) equation refit without adjustment for race Glucose [Mass/Vol] 86 mg/dL 74 - 100 mg/dL [facility] Interpretation and review of laboratory results Abnormal [facility] Potassium [Moles/Vol] 4.8 mmol/L 3.5 - 5.1 mmol/L [facility] Comment on above: Plasma potassium [place] may be up to 0.5 mmol/L lower than serum values. Sodium [Moles/Vol] 138 mmol/L 136 - 145 mmol/L [facility] Urea nitrogen [Mass/Vol] 45 mg/dL High 9 - 23 mg/dL [facility] CBC (HEMOGRAM)on 01-13-2025 Erythrocyte distribution width (RBC) [Ratio] 17.2 % High 11.5-15.0 [facility] Comment on above: Performed By: #### L [id number] ####Pin Setter: JULI JONES ([id number])[facility] ([facility])[address] [place] [address] [place] Hematocrit (Bld) [Volume fraction] 29.6 % Low 35.0-47.0 [facility] Comment on above: Performed By: #### L [id number] ####Pin Setter: JULI JONES ([id number])[facility] ([facility])[address] [place] [address] Hemoglobin (Bld) [Mass/Vol] 9.1 g/dL Low 11.7-16.0 [facility] Comment on above: Performed By: #### L [id number] ####Pin Setter: JULI JONES ([id number])[facility] ([facility])[address] [place] [address] MCH (RBC) [Entitic mass] 31.8 pg Normal 26.0-34.0 [facility] Comment on above: Performed By: #### L [id number] ####Pin Setter: JULI JONES ([id number])[facility])[address] [place] [address] MCHC 30.7 % Normal 30.5-36.0 [facility] Comment on above: Performed By: #### L [id number] ####Pin Setter: JULI JONES ([id number])[facility] ([facility])[address] [place] [address] MCV (RBC) [Entitic vol] 103.5 fL High 77.0-99.0 [facility] Comment on above: Performed By: #### L [id number] ####Pin Setter: JULI JONES ([id number])[facility] ([facility])[address] [place] [address] Platelet mean volume (Bld) [Entitic vol] 9.0 fL Normal 9.0-12.7 [facility] Comment on above: Performed By: #### L [id number] ####Pin Setter: JULI JONES ([id number])[facility])[address] [place] [address] Platelets (Bld) [#/Vol] 268 10*3/uL Normal 140-440 [facility] Comment on above: Performed By: #### L [id number] ####Pin Setter: JUL[facility] JONES ([id number])[facility] [place] [address] RBC (Bld) [#/Vol] 2.86 10*6/uL Low 3.80-5.20 [facility] Comment on above: Performed By: #### L [id number] ####Pin Setter: JULI JONES ([id number])[facility] ([facility])[address] [place] [address] WBC (Bld) [#/Vol] 5.2 10*3/uL Normal 3.6-10.7 [facility] Comment on above: Performed By: #### L [id number] ####Pin Setter: JULI JONES ([id number])[facility])[address] [place] [address] CBC panel Auto (Bld)on 01-13 Erythrocyte distribution width (RBC) [Ratio] 17.2 % High 11.5 - 15.0 % [facility] Hematocrit (Bld) [Volume fraction] 29.6 % Low 35.0 - 47.0 % [facility] Hemoglobin (Bld) [Mass/Vol] 9.1 g/dL Low 11.7 - 16.0 g/dL [facility] Interpretation and review of laboratory results Abnormal [facility] MCH (RBC) [Entitic mass] 31.8 pg 26.0 - 34.0 pg [facility] MCHC (RBC) [Mass/Vol] 30.7 % 30.5 - 36.0 % [facility] MCV (RBC) [Entitic vol] 103.5 fL High 77.0 - 99.0 fL [facility] Platelet mean volume (Bld) [Entitic vol] 9 fL 9.0 - 12.7 fL [facility] Platelets (Bld) [#/Vol] 268 10*3/uL 140 - 440 10*3/uL [facility] RBC (Bld) [#/Vol] 2.86 10*6/uL Low 3.80 - 5.20 10*6/uL [facility] WBC (Bld) [#/Vol] 5.2 10*3/uL 3.6 - 10.7 10*3/uL [facility] Progress Noteon 01-13-2025 Progress Note Nutrition update com pleted. Chart reviewed. 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 Blanca Jackson, AMANDA [facility] Progress Note Normal [facility] 30on 01-12-2025 30 Normal [facility] 30 Normal [facility] [id number] 01-12-2025 [id number] CM tasked to follow over the weekend. Msg sent to facility - [facility] - auth remains pending. CM to assist with DC once auth is back. [facility] BASIC METABOLIC PANELon 05- Anion gap [Moles/Vol] 8 mmol/L Normal 3-13 [facility] Comment on above: Performed By: #### L AB15 ####Pin Setter: JULI JONES ([id number])[address] Calcium [Mass/Vol] 8.8 mg/dL Normal 8.4-10.2 [facility] Comment on above: Performed By: #### L AB15 ####Pin Setter: JULI JONES ([id number])[facility])[address] [place] [address] Chloride [Moles/Vol] 104 mmol/L Normal 98-107 [facility] Comment on above: Performed By: #### L AB15 ####Pin Setter: JULI [id number])[facility])[address] [place] [address] CO2 [Moles/Vol] 24 mmol/L Normal 22-29 [facility] Comment on above: Performed By: #### L AB15 ####Pin Setter: JULI [id number])[facility])[address] [place] [address] Creatinine [Mass/Vol] 2.53 mg/dL High 0.57-1.11 [facility] Comment on above: Performed By: #### L AB15 ####Pin Setter: JULI [id number])[facility])[address] [place] [address] GLOMERULAR FILTRATION RATE ML/MIN/1.73 SQ M.PREDICTED 21.6 mL/min/1.73m*2 Low >60.0 [facility] Comment on above: Result Comment: Calc ulation based on the Chronic Kidney Disease Epidemiology Collaboration (CKD-EPI) equation refit without adjustment for race Performed By: #### L AB15 ####Pin Setter: JULI JONES ([id number])[facility])[address] [place] [address] Glucose [Mass/Vol] 76 mg/dL Normal 74-100 [facility] Comment on above: Performed By: #### L AB15 ####Pin Setter: JULI JONES ([id number])[facility])[address] [place] [address] Potassium [Moles/Vol] 5.0 mmol/L Normal 3.5-5.1 [facility] Comment on above: Result Comment: [facility] potassium values may be up to 0.5 mmol/L lower than serum values. Performed By: #### L AB15 ####Pin Setter: JULI JONES ([id number])[facility])[address] [place] [address] Sodium [Moles/Vol] 136 mmol/L Normal 136-145 [facility] Comment on above: Performed By: #### L AB15 ####Pin Setter: JULI JONES ([id number])[facility])[address] [place] [address] Urea nitrogen [Mass/Vol] 41 mg/dL High 9-23 [facility] Comment on above: Performed By: #### L AB15 ####Pin Setter: JULI JONES ([id number])[facility])[address] [place] [address] Basic metabolic 1998 panelOr dered By: Johnny Macdonald on 01-12-2025 Anion gap [Moles/Vol] 8 mmol/L 3 - 13 mmol/L [facility] Calcium [Mass/Vol] 8.8 mg/dL 8.4 - 10. 2 mg/dL [facility] Chloride [Moles/Vol] 104 mmol/L 98 - 10 7 mmol/L [facility] CO2 [Moles/Vol] 24 mmol/L 22 - 29 mmol/L [facility] Creatinine [Mass/Vol] 2.53 mg/dL High 0.57 - 1.11 mg/dL [facility] GFR/1.73 sq M.predicted (S/P/Bld) [Vol rate/Area] 21.6 mL/min Low - PINF [facility] Comment on above: Calculation based on the Chronic Kidney Disease Epidemiology Collaboration (CKD-EPI) equation refit without adjustment for race Glucose [Mass/Vol] 76 mg/dL 74 - 100 mg/dL [facility] Interpretation and review of laboratory results Abnormal [facility] Potassium [Moles/Vol] 5 mmol/L 3.5 - 5.1 mmol/L [facility] Comment on above: Plasma potassium [place] may be up to 0.5 mmol/L lower than serum values. Sodium [Moles/Vol] 136 mmol/L 136 - 145 mmol/L [facility] Urea nitrogen [Mass/Vol] 41 mg/dL High 9 - 23 mg/dL [facility] CBC (HEMOGRAM)on 01-12-2025 Erythrocyte distribution width (RBC) [Ratio] 17.2 % High 11.5-15.0 [facility] Comment on above: Performed By: #### L [id number] ####Pin Setter: JULI [id number])[address] Hematocrit (Bld) [Volume fraction] 24.0 % Low 35.0-47.0 [facility] Comment on above: Performed By: #### L AB294 ####Pin Setter: JULI [id number])[address] Hemoglobin (Bld) [Mass/Vol] 7.7 g/dL Low 11.7-16.0 [facility] Comment on above: Performed By: #### L [id number] ####Pin Setter: JUL[facility] [id number])[facility] [place] [address] MCH (RBC) [Entitic mass] 32.2 pg Normal 26.0-34.0 [facility] Comment on above: Performed By: #### L [id number] ####Pin Setter: JULI JONES ([id number])[facility] ([facility])[address] [place] [address] MCHC 32.1 % Normal 30.5-36.0 [facility] Comment on above: Performed By: #### L AB294 ####Pin Setter: JULI JONES ([id number])[facility] ([facility])[address] [place] [address] MCV (RBC) [Entitic vol] 100.4 fL High 77.0-99.0 [facility] Comment on above: Performed By: #### L [id number] ####Pin Setter: JULI JONES ([id number])[facility] ([facility])[address] [place] [address] Platelet mean volume (Bld) [Entitic vol] 9.1 fL Normal 9.0-12.7 [facility] Comment on above: Performed By: #### L [id number] ####Pin Setter: JULI JONES ([id number])[facility] ([facility])[address] [place] [address] Platelets (Bld) [#/Vol] 241 10*3/uL Normal 140-440 [facility] Comment on above: Performed By: #### L [id number] ####Pin Setter: JULI JONES ([id number])[facility] ([facility])[address] [place] [address] RBC (Bld) [#/Vol] 2.39 10*6/uL Low 3.80-5.20 [facility] Comment on above: Performed By: #### L [id number] ####Pin Setter: JULI JONES ([id number])[facility] ([facility])[address] [place] [address] [place] WBC (Bld) [#/Vol] 5.9 10*3/uL Normal 3.6-10.7 [facility] Comment on above: Performed By: #### L [id number] ####Pin Setter: JULI JONES ([id number])[facility] ([address] CBC panel Auto (Bld)on 01-12 Erythrocyte distribution width (RBC) [Ratio] 17.2 % High 11.5 - 15.0 % [facility] Hematocrit (Bld) [Volume fraction] 24 % Low 35.0 - 47.0 % [facility] Hemoglobin (Bld) [Mass/Vol] 7.7 g/dL Low 11.7 - 16.0 g/dL [facility] Interpretation and review of laboratory results Abnormal [facility] MCH (RBC) [Entitic mass] 32.2 pg 26.0 - 34.0 pg [facility] MCHC (RBC) [Mass/Vol] 32.1 % 30.5 - 36.0 % [facility] MCV (RBC) [Entitic vol] 100.4 fL High 77.0 - 99.0 fL [facility] Platelet mean volume (Bld) [Entitic vol] 9.1 fL 9.0 - 12.7 fL [facility] Platelets (Bld) [#/Vol] 241 10*3/uL 140 - 440 10*3/uL [facility] RBC (Bld) [#/Vol] 2.39 10*6/uL Low 3.80 - 5.20 10*6/uL [facility] WBC (Bld) [#/Vol] 5.9 10*3/uL 3.6 - 10.7 10*3/uL [facility] Progress Noteon 01-12-2025 Progress Note Normal [facility] 30on 01-11-2025 30 Normal [facility] 30 Normal [facility] [id number] 01-11-2025 [id number] Normal [facility] [id number] Normal [facility] BASIC METABOLIC PANELon 12-15 Anion gap [Moles/Vol] 4 mmol/L Normal 3-13 [facility] Comment on above: Performed By: #### L AB15 ####Pin Setter: JULI JONES ([id number])[facility] [place] [address] Calcium [Mass/Vol] 8.5 mg/dL Normal 8.4-10.2 [facility] Comment on above: Performed By: #### L AB15 ####Pin Setter: JULI JONES ([id number])[facility] ([facility])[address] [place] [address] Chloride [Moles/Vol] 99 mmol/L Normal 98-107 [facility] Comment on above: Performed By: #### L AB15 ####Pin Setter: JULI JONES ([id number])[facility] ([facility])[address] [place] [address] CO2 [Moles/Vol] 24 mmol/L Normal 22-29 [facility] Comment on above: Performed By: #### L AB15 ####Pin Setter: JULI JONES ([id number])[facility] ([facility])[address] [place] [address] Creatinine [Mass/Vol] 2.35 mg/dL High 0.57-1.11 [facility] Comment on above: Performed By: #### L AB15 ####Pin Setter: JULI JONES ([id number])[facility])[address] [place] [address] GLOMERULAR FILTRATION RATE ML/MIN/1.73 SQ M.PREDICTED 23.6 mL/min/1.73m*2 Low >60.0 [facility] Comment on above: Result Comment: Calc ulation based on the Chronic Kidney Disease Epidemiology Collaboration (CKD-EPI) equation refit without adjustment for race Performed By: #### L AB15 ####Pin Setter: JULI JONES ([id number])[facility] ([facility])[address] [place] [address] Glucose [Mass/Vol] 87 mg/dL Normal 74-100 [facility] Comment on above: Performed By: #### L AB15 ####Pin Setter: JULI JONES ([id number])[facility] ([facility])[address] [place] [address] Potassium [Moles/Vol] 4.9 mmol/L Normal 3.5-5.1 [facility] Comment on above: Result Comment: [facility] potassium values may be up to 0.5 mmol/L lower than serum values. Performed By: #### L AB15 ####Pin Setter: JULI JONES ([id number])[facility])[address] [place] [address] Sodium [Moles/Vol] 127 mmol/L Low 136-145 [facility] Comment on above: Performed By: #### L AB15 ####Pin Setter: JULI JONES ([id number])[facility])[address] [place] [address] Urea nitrogen [Mass/Vol] 41 mg/dL High 9-23 [facility] Comment on above: Performed By: #### L AB15 ####Pin Setter: JULI JONES ([id number])[facility] ([facility])[address] [place] [address] Basic metabolic 1998 panelon 01-11-2025 Anion gap [Moles/Vol] 4 mmol/L 3 - 13 mmol/L [facility] Calcium [Mass/Vol] 8.5 mg/dL 8.4 - 10. 2 mg/dL [facility] Chloride [Moles/Vol] 99 mmol/L 98 - 10 7 mmol/L [facility] CO2 [Moles/Vol] 24 mmol/L 22 - 29 mmol/L [facility] Creatinine [Mass/Vol] 2.35 mg/dL High 0.57 - 1.11 mg/dL [facility] GFR/1.73 sq M.predicted (S/P/Bld) [Vol rate/Area] 23.6 mL/min Low - PINF [facility] Comment on above: Calculation based on the Chronic Kidney Disease Epidemiology Collaboration (CKD-EPI) equation refit without adjustment for race Glucose [Mass/Vol] 87 mg/dL 74 - 100 mg/dL [facility] Interpretation and review of laboratory results Abnormal [facility] Potassium [Moles/Vol] 4.9 mmol/L 3.5 - 5.1 mmol/L [facility] Comment on above: Plasma potassium [place] may be up to 0.5 mmol/L lower than serum values. Sodium [Moles/Vol] 127 mmol/L Low 136 - 145 mmol/L [facility] Urea nitrogen [Mass/Vol] 41 mg/dL High 9 - 23 mg/dL [facility] CBC (HEMOGRAM)on 01-11-2025 Erythrocyte distribution width (RBC) [Ratio] 16.8 % High 11.5-15.0 [facility] Comment on above: Performed By: #### L [id number] ####Pin Setter: JULI JONES ([id number])[facility])[address] [place] [address] Hematocrit (Bld) [Volume fraction] 24.9 % Low 35.0-47.0 [facility] Comment on above: Performed By: #### L [id number] ####Pin Setter: JULI JONES ([id number])[facility])[address] [place] [address] Hemoglobin (Bld) [Mass/Vol] 7.8 g/dL Low 11.7-16.0 [facility] Comment on above: Performed By: #### L [id number] ####Pin Setter: JULI JONES ([id number])[facility])[address] [place] [address] MCH (RBC) [Entitic mass] 31.7 pg Normal 26.0-34.0 [facility] Comment on above: Performed By: #### L [id number] ####Pin Setter: JULI JONES ([id number])[address] MCHC 31.3 % Normal 30.5-36.0 [facility] Comment on above: Performed By: #### L [id number] ####Pin Setter: JULI JONES ([id number])[facility])[address] [place] [address] MCV (RBC) [Entitic vol] 101.2 fL High 77.0-99.0 [facility] Comment on above: Performed By: #### L [id number] ####Pin Setter: JULI JONES ([id number])[facility] ([facility])[address] [place] [address] Platelet mean volume (Bld) [Entitic vol] 9.0 fL Normal 9.0-12.7 [facility] Comment on above: Performed By: #### L [id number] ####Pin Setter: JULI JONES ([id number])[facility] ([facility])[address] [place] [address] Platelets (Bld) [#/Vol] 250 10*3/uL Normal 140-440 [facility] Comment on above: Performed By: #### L [id number] ####Pin Setter: JULI JONES ([id number])[facility] ([facility])[address] [place] [address] RBC (Bld) [#/Vol] 2.46 10*6/uL Low 3.80-5.20 [facility] Comment on above: Performed By: #### L [id number] ####Pin Setter: JULI JONES ([id number])[facility] ([facility])[address] [place] [address] WBC (Bld) [#/Vol] 7.8 10*3/uL Normal 3.6-10.7 [facility] Comment on above: Performed By: #### L [id number] ####Pin Setter: JULI JONES ([id number])[facility] ([facility])[address] [place] [address] CBC panel Auto (Bld)on 01-11 Erythrocyte distribution width (RBC) [Ratio] 16.8 % High 11.5 - 15.0 % [facility] Hematocrit (Bld) [Volume fraction] 24.9 % Low 35.0 - 47.0 % [facility] Hemoglobin (Bld) [Mass/Vol] 7.8 g/dL Low 11.7 - 16.0 g/dL [facility] Interpretation and review of laboratory results Abnormal [facility] MCH (RBC) [Entitic mass] 31.7 pg 26.0 - 34.0 pg [facility] MCHC (RBC) [Mass/Vol] 31.3 % 30.5 - 36.0 % [facility] MCV (RBC) [Entitic vol] 101.2 fL High 77.0 - 99.0 fL [facility] Platelet mean volume (Bld) [Entitic vol] 9 fL 9.0 - 12.7 fL [facility] Platelets (Bld) [#/Vol] 250 10*3/uL 140 - 440 10*3/uL [facility] RBC (Bld) [#/Vol] 2.46 10*6/uL Low 3.80 - 5.20 10*6/uL [facility] WBC (Bld) [#/Vol] 7.8 10*3/uL 3.6 - 10.7 10*3/uL [facility] Laboratory - Chemistry and C hemistry - challengeon 01-11-2025 Glucose [Mass/Vol] 113 mg/dL High 70 - 100 mg/dL [facility] No Panel Informationon 01-11 Interpretation and review of laboratory results Abnormal [facility] Performed by: [facility], [address] [place] [address] CLIA ID: [id number] [facility] Progress Noteon 01-11-2025 Progress Note Normal [facility] [id number] 01-10-2025 [id number] SW follow up: SW completed Will Call in Roundtrip. Will Call on calendar date 01/11. Awaiting insurance auth, for pt to go to [facility]. . Normal [facility] BASIC METABOLIC PANELon 05- Anion gap [Moles/Vol] 11 mmol/L Normal 3-13 [facility] Comment on above: Performed By: #### L AB15 ####Pin Setter: JULI JONES ([id number])[facility] ([facility])[address] [place] [address] [place] Calcium [Mass/Vol] 8.8 mg/dL Normal 8.4-10.2 [facility] Comment on above: Performed By: #### L AB15 ####Pin Setter: JULI JONES ([id number])[facility] ([facility])[address] [place] [address] Chloride [Moles/Vol] 99 mmol/L Normal 98-107 [facility] Comment on above: Performed By: #### L AB15 ####Pin Setter: JULI JONES ([id number])[facility])[address] [place] [address] CO2 [Moles/Vol] 21 mmol/L Low 22-29 [facility] Comment on above: Performed By: #### L AB15 ####Pin Setter: JULI JONES ([id number])[facility])[address] [place] [address] Creatinine [Mass/Vol] 2.46 mg/dL High 0.57-1.11 [facility] Comment on above: Performed By: #### L AB15 ####Pin Setter: JULI JONES ([id number])[facility])[address] [place] [address] GLOMERULAR FILTRATION RATE ML/MIN/1.73 SQ M.PREDICTED 22.4 mL/min/1.73m*2 Low >60.0 [facility] Comment on above: Result Comment: Calc ulation based on the Chronic Kidney Disease Epidemiology Collaboration (CKD-EPI) equation refit without adjustment for race Performed By: #### L AB15 ####Pin Setter: JULI JONES ([id number])[facility])[address] [place] [address] Glucose [Mass/Vol] 91 mg/dL Normal 74-100 [facility] Comment on above: Performed By: #### L AB15 ####Pin Setter: JULI JONES ([id number])[facility])[address] [place] [address] Potassium [Moles/Vol] 5.1 mmol/L Normal 3.5-5.1 [facility] Comment on above: Result Comment: [facility] potassium values may be up to 0.5 mmol/L lower than serum values. Performed By: #### L AB15 ####Pin Setter: JULI JONES ([id number])[facility] [place] [address] Sodium [Moles/Vol] 131 mmol/L Low 136-145 [facility] Comment on above: Performed By: #### L AB15 ####Pin Setter: JULI JONES ([id number])[facility] ([facility])[address] [place] [address] Urea nitrogen [Mass/Vol] 35 mg/dL High 9-23 [facility] Comment on above: Performed By: #### L AB15 ####Pin Setter: JULI JONES ([id number])[facility] ([facility])[address] [place] [address] Basic metabolic 1998 panelon 01-10-2025 Anion gap [Moles/Vol] 11 mmol/L 3 - 13 mmol/L [facility] [employer] Calcium [Mass/Vol] 8.8 mg/dL 8.4 - 10. 2 mg/dL [facility] [employer] Chloride [Moles/Vol] 99 mmol/L 98 - 10 7 mmol/L [facility] CO2 [Moles/Vol] 21 mmol/L Low 22 - 29 mmol/L [facility] Creatinine [Mass/Vol] 2.46 mg/dL High 0.57 - 1.11 mg/dL [facility] GFR/1.73 sq M.predicted (S/P/Bld) [Vol rate/Area] 22.4 mL/min Low - PINF [facility] Comment on above: Calculation based on the Chronic Kidney Disease Epidemiology Collaboration (CKD-EPI) equation refit without adjustment for race Glucose [Mass/Vol] 91 mg/dL 74 - 100 mg/dL [facility] Interpretation and review of laboratory results Abnormal [facility] Potassium [Moles/Vol] 5.1 mmol/L 3.5 - 5.1 mmol/L [facility] Comment on above: Plasma potassium batsheva ues may be up to 0.5 mmol/L lower than serum values. Sodium [Moles/Vol] 131 mmol/L Low 136 - 145 mmol/L [facility] Urea nitrogen [Mass/Vol] 35 mg/dL High 9 - 23 mg/dL [facility] CBC (HEMOGRAM)on 01-10-2025 Erythrocyte distribution width (RBC) [Ratio] 16.5 % High 11.5-15.0 [facility] Comment on above: Performed By: #### L [id number] ####Pin Setter: JULI JONES ([id number])[facility])[address] [place] [address] Hematocrit (Bld) [Volume fraction] 25.4 % Low 35.0-47.0 [facility] Comment on above: Performed By: #### L [id number] ####Pin Setter: JULI JONES ([id number])[facility])[address] [place] [address] Hemoglobin (Bld) [Mass/Vol] 7.8 g/dL Low 11.7-16.0 [facility] Comment on above: Performed By: #### L [id number] ####Pin Setter: JULI JONES ([id number])[facility])[address] [place] [address] MCH (RBC) [Entitic mass] 30.7 pg Normal 26.0-34.0 [facility] Comment on above: Performed By: #### L [id number] ####Pin Setter: JULI JONES ([id number])[facility])[address] [place] [address] MCHC 30.7 % Normal 30.5-36.0 [facility] Comment on above: Performed By: #### L [id number] ####Pin Setter: JULI JONES ([id number])[facility])[address] [place] [address] MCV (RBC) [Entitic vol] 100.0 fL High 77.0-99.0 [facility] Comment on above: Performed By: #### L [id number] ####Pin Setter: JULI JONES ([id number])[facility])[address] [place] [address] Platelet mean volume (Bld) [Entitic vol] 8.8 fL Low 9.0-12.7 [facility] Comment on above: Performed By: #### L [id number] ####Pin Setter: JULI JONES ([id number])[facility])[address] [place] [address] Platelets (Bld) [#/Vol] 269 10*3/uL Normal 140-440 [facility] Comment on above: Performed By: #### L [id number] ####Pin Setter: JULI JONES ([id number])[facility] ([facility])[address] [place] [address] RBC (Bld) [#/Vol] 2.54 10*6/uL Low 3.80-5.20 [facility] Comment on above: Performed By: #### L [id number] ####Pin Setter: JULI JONES ([id number])[facility])[address] [place] [address] WBC (Bld) [#/Vol] 8.1 10*3/uL Normal 3.6-10.7 [facility] Comment on above: Performed By: #### L [id number] ####Pin Setter: JULI JONES ([id number])[facility])[address] [place] [address] CBC panel Auto (Bld)on 01-10 Erythrocyte distribution width (RBC) [Ratio] 16.5 % High 11.5 - 15.0 % [facility] Hematocrit (Bld) [Volume fraction] 25.4 % Low 35.0 - 47.0 % [facility] Hemoglobin (Bld) [Mass/Vol] 7.8 g/dL Low 11.7 - 16.0 g/dL [facility] Interpretation and review of laboratory results Abnormal [facility] MCH (RBC) [Entitic mass] 30.7 pg 26.0 - 34.0 pg [facility] MCHC (RBC) [Mass/Vol] 30.7 % 30.5 - 36.0 % [facility] MCV (RBC) [Entitic vol] 100 fL High 77.0 - 99.0 fL [facility] Platelet mean volume (Bld) [Entitic vol] 8.8 fL Low 9.0 - 12.7 fL [facility] Platelets (Bld) [#/Vol] 269 10*3/uL 140 - 440 10*3/uL [facility] RBC (Bld) [#/Vol] 2.54 10*6/uL Low 3.80 - 5.20 10*6/uL [facility] WBC (Bld) [#/Vol] 8.1 10*3/uL 3.6 - 10.7 10*3/uL [facility] Progress Noteon 01-10-2025 Progress Note Normal [facility] 30on 01-09-2025 30 Normal [facility] [id number] 01-09-2025 [id number] Updated Clinicals pl aced to Joy Wiggins via [employer] per TCC request. Normal [facility] [id number] Normal [facility] [id number] Normal [facility] BASIC METABOLIC PANELon 12-14 Anion gap [Moles/Vol] 6 mmol/L Normal 3-13 [facility] Comment on above: Performed By: #### L AB15 ####Pin Setter: JULI JONES ([id number])[address] Calcium [Mass/Vol] 8.7 mg/dL Normal 8.4-10.2 [facility] Comment on above: Performed By: #### L AB15 ####Pin Setter: JULI JONES ([id number])[address] Chloride [Moles/Vol] 102 mmol/L Normal 98-107 [facility] Comment on above: Performed By: #### L AB15 ####Pin Setter: JULI JONES ([id number])[facility])[address] [place] [address] CO2 [Moles/Vol] 24 mmol/L Normal - [facility] Comment on above: Performed By: #### L AB15 ####Pin Setter: JULI [id number])[facility] ([facility])[address] [place] [address] [place] Creatinine [Mass/Vol] 2.44 mg/dL High 0.57-1.11 [facility] Comment on above: Performed By: #### L AB15 ####Pin Setter: JULI JONES ([id number])[facility] ([facility])[address] [place] [address] [place] GLOMERULAR FILTRATION RATE ML/MIN/1.73 SQ M.PREDICTED 22.6 mL/min/1.73m*2 Low >60.0 [facility] Comment on above: Result Comment: Calc ulation based on the Chronic Kidney Disease Epidemiology Collaboration (CKD-EPI) equation refit without adjustment for race Performed By: #### L AB15 ####Pin Setter: JULI JONES ([id number])[facility] ([facility])[address] [place] [address] Glucose [Mass/Vol] 84 mg/dL Normal 74-100 [facility] Comment on above: Performed By: #### L AB15 ####Pin Setter: JULI JONES ([id number])[facility])[address] [place] [address] Potassium [Moles/Vol] 5.0 mmol/L Normal 3.5-5.1 [facility] Comment on above: Result Comment: [facility] potassium values may be up to 0.5 mmol/L lower than serum values. Performed By: #### L AB15 ####Pin Setter: JULI JONES ([id number])[facility] ([facility])[address] [place] [address] [place] Sodium [Moles/Vol] 132 mmol/L Low 136-145 [facility] Comment on above: Performed By: #### L AB15 ####Pin Setter: JULI JONES ([id number])[facility])[address] [place] [address] [place] Urea nitrogen [Mass/Vol] 32 mg/dL High 9-23 [facility] Comment on above: Performed By: #### L AB15 ####Pin Setter: JULI [id number])[facility] [place] [address] Basic metabolic 1998 panelon 01-09-2025 Anion gap [Moles/Vol] 6 mmol/L 3 - 13 mmol/L [facility] Calcium [Mass/Vol] 8.7 mg/dL 8.4 - 10. 2 mg/dL [facility] Chloride [Moles/Vol] 102 mmol/L 98 - 10 7 mmol/L [facility] CO2 [Moles/Vol] 24 mmol/L 22 - 29 mmol/L [facility] Creatinine [Mass/Vol] 2.44 mg/dL High 0.57 - 1.11 mg/dL [facility] GFR/1.73 sq M.predicted (S/P/Bld) [Vol rate/Area] 22.6 mL/min Low - PINF [facility] Comment on above: Calculation based on the Chronic Kidney Disease Epidemiology Collaboration (CKD-EPI) equation refit without adjustment for race Glucose [Mass/Vol] 84 mg/dL 74 - 100 mg/dL [facility] Interpretation and review of laboratory results Abnormal [facility] Potassium [Moles/Vol] 5 mmol/L 3.5 - 5.1 mmol/L [facility] Comment on above: Plasma potassium [place] ues may be up to 0.5 mmol/L lower than serum values. Sodium [Moles/Vol] 132 mmol/L Low 136 - 145 mmol/L [facility] Urea nitrogen [Mass/Vol] 32 mg/dL High 9 - 23 mg/dL [facility] CBC (HEMOGRAM)on 01-09-2025 Erythrocyte distribution width (RBC) [Ratio] 16.3 % High 11.5-15.0 [facility] Comment on above: Performed By: #### L [id number] ####Pin Setter: JULI JONES ([id number])[facility] ([facility])[address] [place] [address] Hematocrit (Bld) [Volume fraction] 26.0 % Low 35.0-47.0 [facility] Comment on above: Performed By: #### L [id number] ####Pin Setter: JULI JONES ([id number])[facility] ([facility])[address] [place] [address] Hemoglobin (Bld) [Mass/Vol] 8.0 g/dL Low 11.7-16.0 [facility] Comment on above: Performed By: #### L [id number] ####Pin Setter: JULI JONES ([id number])[facility])[address] [place] [address] MCH (RBC) [Entitic mass] 31.3 pg Normal 26.0-34.0 [facility] Comment on above: Performed By: #### L [id number] ####Pin Setter: JULI JONES ([id number])[facility])[address] [place] [address] MCHC 30.8 % Normal 30.5-36.0 [facility] Comment on above: Performed By: #### L AB294 ####Pin Setter: JULI JONES ([id number])[facility] ([facility])[address] [place] [address] MCV (RBC) [Entitic vol] 101.6 fL High 77.0-99.0 [facility] Comment on above: Performed By: #### L [id number] ####Pin Setter: JULI JONES ([id number])[facility])[address] [place] [address] Platelet mean volume (Bld) [Entitic vol] 9.1 fL Normal 9.0-12.7 [facility] Comment on above: Performed By: #### L [id number] ####Pin Setter: JULI JONES ([id number])[facility] ([facility])[address] [place] [address] Platelets (Bld) [#/Vol] 281 10*3/uL Normal 140-440 [facility] Comment on above: Performed By: #### L [id number] ####Pin Setter: JULI JONES ([id number])[facility])[address] [place] [address] RBC (Bld) [#/Vol] 2.56 10*6/uL Low 3.80-5.20 [facility] Comment on above: Performed By: #### L [id number] ####Pin Setter: JULI JONES ([id number])[facility] ([facility])[address] [place] [address] WBC (Bld) [#/Vol] 6.7 10*3/uL Normal 3.6-10.7 [facility] Comment on above: Performed By: #### L [id number] ####Pin Setter: JULI JONES ([id number])[facility] [place] [address] CBC panel Auto (Bld)on 01-09 Erythrocyte distribution width (RBC) [Ratio] 16.3 % High 11.5 - 15.0 % [facility] Hematocrit (Bld) [Volume fraction] 26 % Low 35.0 - 47.0 % [facility] Hemoglobin (Bld) [Mass/Vol] 8 g/dL Low 11.7 - 16.0 g/dL [facility] Interpretation and review of laboratory results Abnormal [facility] MCH (RBC) [Entitic mass] 31.3 pg 26.0 - 34.0 pg [facility] MCHC (RBC) [Mass/Vol] 30.8 % 30.5 - 36.0 % [facility] MCV (RBC) [Entitic vol] 101.6 fL High 77.0 - 99.0 fL [facility] Platelet mean volume (Bld) [Entitic vol] 9.1 fL 9.0 - 12.7 fL [facility] Platelets (Bld) [#/Vol] 281 10*3/uL 140 - 440 10*3/uL [facility] RBC (Bld) [#/Vol] 2.56 10*6/uL Low 3.80 - 5.20 10*6/uL [facility] WBC (Bld) [#/Vol] 6.7 10*3/uL 3.6 - 10.7 10*3/uL [facility] Progress Noteon 01-09-2025 Progress Note Normal [facility] Progress Note Normal [facility] Progress Note Normal [facility] [id number] 01-08-2025 [id number] SW follow up: SW checked HENS, Level II still pending. Attempted to call [place] DON again. DON didn't answer and vm is full, unable to leave a . . Normal [facility] [id number] Normal [facility] BASIC METABOLIC PANELon 05-2 Anion gap [Moles/Vol] 9 mmol/L Normal 3-13 [facility] Comment on above: Performed By: #### L AB15 ####Pin Setter: JULI JONES ([id number])[facility])[address] [place] [address] Calcium [Mass/Vol] 8.5 mg/dL Normal 8.4-10.2 [facility] Comment on above: Performed By: #### L AB15 ####Pin Setter: JULI JONES ([id number])[facility])[address] [place] [address] Chloride [Moles/Vol] 104 mmol/L Normal 98-107 [facility] Comment on above: Performed By: #### L AB15 ####Pin Setter: JULI JONES ([id number])[facility])[address] [place] [address] CO2 [Moles/Vol] 21 mmol/L Low 22-29 [facility] Comment on above: Performed By: #### L AB15 ####Pin Setter: JULI JONES ([id number])[facility])[address] [place] [address] Creatinine [Mass/Vol] 2.27 mg/dL High 0.57-1.11 [facility] Comment on above: Performed By: #### L AB15 ####Pin Setter: JULI JONES ([id number])[facility])[address] [place] [address] GLOMERULAR FILTRATION RATE ML/MIN/1.73 SQ M.PREDICTED 24.6 mL/min/1.73m*2 Low >60.0 [facility] Comment on above: Result Comment: Calc ulation based on the Chronic Kidney Disease Epidemiology Collaboration (CKD-EPI) equation refit without adjustment for race Performed By: #### L AB15 ####Pin Setter: JULI JONES ([id number])[facility])[address] [place] [address] Glucose [Mass/Vol] 82 mg/dL Normal 74-100 [facility] Comment on above: Performed By: #### L AB15 ####Pin Setter: JULI JONES ([id number])[facility])[address] [place] [address] Potassium [Moles/Vol] 5.0 mmol/L Normal 3.5-5.1 [facility] Comment on above: Result Comment: [facility] potassium values may be up to 0.5 mmol/L lower than serum values. Performed By: #### L AB15 ####Pin Setter: JULI JONES ([id number])[facility])[address] [place] [address] Sodium [Moles/Vol] 134 mmol/L Low 136-145 [facility] Comment on above: Performed By: #### L AB15 ####Pin Setter: JULI JONES ([id number])[address] Urea nitrogen [Mass/Vol] 33 mg/dL High 9-23 [facility] Comment on above: Performed By: #### L AB15 ####Pin Setter: JULI JONES ([id number])[facility])[address] [place] [address] Basic metabolic 1998 panelon 01-08-2025 Anion gap [Moles/Vol] 9 mmol/L 3 - 13 mmol/L [facility] Calcium [Mass/Vol] 8.5 mg/dL 8.4 - 10. 2 mg/dL [facility] Chloride [Moles/Vol] 104 mmol/L 98 - 10 7 mmol/L [facility] CO2 [Moles/Vol] 21 mmol/L Low 22 - 29 mmol/L [facility] Creatinine [Mass/Vol] 2.27 mg/dL High 0.57 - 1.11 mg/dL [facility] GFR/1.73 sq M.predicted (S/P/Bld) [Vol rate/Area] 24.6 mL/min Low - PINF [facility] Comment on above: Calculation based on the Chronic Kidney Disease Epidemiology Collaboration (CKD-EPI) equation refit without adjustment for race Glucose [Mass/Vol] 82 mg/dL 74 - 100 mg/dL [facility] Interpretation and review of laboratory results Abnormal [facility] Potassium [Moles/Vol] 5 mmol/L 3.5 - 5.1 mmol/L [facility] Comment on above: Plasma potassium [place] ues may be up to 0.5 mmol/L lower than serum values. Sodium [Moles/Vol] 134 mmol/L Low 136 - 145 mmol/L [facility] Urea nitrogen [Mass/Vol] 33 mg/dL High 9 - 23 mg/dL [facility] CBC (HEMOGRAM)on 01-08-2025 Erythrocyte distribution width (RBC) [Ratio] 15.8 % High 11.5-15.0 [facility] Comment on above: Performed By: #### L [id number] ####Pin Setter: JULI JONES ([id number])[address] Hematocrit (Bld) [Volume fraction] 24.7 % Low 35.0-47.0 [facility] Comment on above: Performed By: #### L [id number] ####Pin Setter: JULI [id number])[address] Hemoglobin (Bld) [Mass/Vol] 7.9 g/dL Low 11.7-16.0 [facility] Comment on above: Performed By: #### L [id number] ####Pin Setter: JULI [id number])[address] MCH (RBC) [Entitic mass] 31.5 pg Normal 26.0-34.0 [facility] Comment on above: Performed By: #### L [id number] ####Pin Setter: JULI [id number])[facility] ([facility])[address] [place] [address] MCHC 32.0 % Normal 30.5-36.0 [facility] Comment on above: Performed By: #### L [id number] ####Pin Setter: JULI JONES ([id number])[facility] ([facility])[address] [place] [address] MCV (RBC) [Entitic vol] 98.4 fL Normal 77.0-99.0 [facility] Comment on above: Performed By: #### L [id number] ####Pin Setter: JULI JONES ([id number])[facility])[address] [place] [address] Platelet mean volume (Bld) [Entitic vol] 8.9 fL Low 9.0-12.7 [facility] Comment on above: Performed By: #### L [id number] ####Pin Setter: JULI JONES ([id number])[facility] ([facility])[address] [place] [address] Platelets (Bld) [#/Vol] 278 10*3/uL Normal 140-440 [facility] Comment on above: Performed By: #### L [id number] ####Pin Setter: JULI JONES ([id number])[facility])[address] [place] [address] RBC (Bld) [#/Vol] 2.51 10*6/uL Low 3.80-5.20 [facility] Comment on above: Performed By: #### L [id number] ####Pin Setter: JULI JONES ([id number])[facility] ([facility])[address] [place] [address] WBC (Bld) [#/Vol] 7.5 10*3/uL Normal 3.6-10.7 [facility] Comment on above: Performed By: #### L [id number] ####Pin Setter: JULI JONES ([id number])[facility] ([facility])[address] [place] [address] CBC panel Auto (Bld)on 01-08 Erythrocyte distribution width (RBC) [Ratio] 15.8 % High 11.5 - 15.0 % [facility] Hematocrit (Bld) [Volume fraction] 24.7 % Low 35.0 - 47.0 % [facility] Hemoglobin (Bld) [Mass/Vol] 7.9 g/dL Low 11.7 - 16.0 g/dL [facility] Interpretation and review of laboratory results Abnormal [facility] MCH (RBC) [Entitic mass] 31.5 pg 26.0 - 34.0 pg [facility] MCHC (RBC) [Mass/Vol] 32 % 30.5 - 36.0 % [facility] MCV (RBC) [Entitic vol] 98.4 fL 77.0 - 99.0 fL [facility] Platelet mean volume (Bld) [Entitic vol] 8.9 fL Low 9.0 - 12.7 fL [facility] Platelets (Bld) [#/Vol] 278 10*3/uL 140 - 440 10*3/uL [facility] RBC (Bld) [#/Vol] 2.51 10*6/uL Low 3.80 - 5.20 10*6/uL [facility] WBC (Bld) [#/Vol] 7.5 10*3/uL 3.6 - 10.7 10*3/uL [facility] Progress Noteon 01-08-2025 Progress Note Normal [facility] Progress Note Normal [facility] Progress Note Normal [facility] BASIC METABOLIC PANELon 12-14 Anion gap [Moles/Vol] 7 mmol/L Normal 3-13 [facility] Comment on above: Performed By: #### L AB15 ####Pin Setter: JULI JONES ([id number])[facility] ([facility])[address] [place] [address] [place] Calcium [Mass/Vol] 8.4 mg/dL Normal 8.4-10.2 [facility] Comment on above: Performed By: #### L AB15 ####Pin Setter: JULI JONES ([id number])[facility] ([facility])[address] [place] [address] [place] Chloride [Moles/Vol] 103 mmol/L Normal 98-107 [facility] Comment on above: Performed By: #### L AB15 ####Pin Setter: JULI JONES ([id number])[facility])[address] [place] [address] CO2 [Moles/Vol] 22 mmol/L Normal 22-29 [facility] Comment on above: Performed By: #### L AB15 ####Pin Setter: JULI JONES ([id number])[facility])[address] [place] [address] Creatinine [Mass/Vol] 2.37 mg/dL High 0.57-1.11 [facility] Comment on above: Performed By: #### L AB15 ####Pin Setter: JULI JONES ([id number])[facility])[address] [place] [address] GLOMERULAR FILTRATION RATE ML/MIN/1.73 SQ M.PREDICTED 23.4 mL/min/1.73m*2 Low >60.0 [facility] Comment on above: Result Comment: Calc ulation based on the Chronic Kidney Disease Epidemiology Collaboration (CKD-EPI) equation refit without adjustment for race Performed By: #### L AB15 ####Pin Setter: JULI JONES ([id number])[facility])[address] [place] [address] Glucose [Mass/Vol] 82 mg/dL Normal 74-100 [facility] Comment on above: Performed By: #### L AB15 ####Pin Setter: JULI JONES ([id number])[facility])[address] [place] [address] [place] Potassium [Moles/Vol] 4.8 mmol/L Normal 3.5-5.1 [facility] Comment on above: Result Comment: [facility] potassium values may be up to 0.5 mmol/L lower than serum values. Performed By: #### L AB15 ####Pin Setter: JULI JONES ([id number])[facility])[address] [place] [address] [place] Sodium [Moles/Vol] 132 mmol/L Low 136-145 [facility] Comment on above: Performed By: #### L AB15 ####Pin Setter: JULI JONES ([id number])[facility])[address] [place] [address] Urea nitrogen [Mass/Vol] 32 mg/dL High 9-23 [facility] Comment on above: Performed By: #### L AB15 ####Pin Setter: JULI JONES ([id number])[facility] ([facility])[address] [place] [address] Basic metabolic 1998 panelon 01-07-2025 Anion gap [Moles/Vol] 7 mmol/L 3 - 13 mmol/L [facility] Calcium [Mass/Vol] 8.4 mg/dL 8.4 - 10. 2 mg/dL [facility] Chloride [Moles/Vol] 103 mmol/L 98 - 10 7 mmol/L [facility] CO2 [Moles/Vol] 22 mmol/L 22 - 29 mmol/L [facility] Creatinine [Mass/Vol] 2.37 mg/dL High 0.57 - 1.11 mg/dL [facility] GFR/1.73 sq M.predicted (S/P/Bld) [Vol rate/Area] 23.4 mL/min Low - PINF [facility] Comment on above: Calculation based on the Chronic Kidney Disease Epidemiology Collaboration (CKD-EPI) equation refit without adjustment for race Glucose [Mass/Vol] 82 mg/dL 74 - 100 mg/dL [facility] Interpretation and review of laboratory results Abnormal [facility] Potassium [Moles/Vol] 4.8 mmol/L 3.5 - 5.1 mmol/L [facility] Comment on above: Plasma potassium batsheva ues may be up to 0.5 mmol/L lower than serum values. Sodium [Moles/Vol] 132 mmol/L Low 136 - 145 mmol/L [facility] Urea nitrogen [Mass/Vol] 32 mg/dL High 9 - 23 mg/dL [facility] CBC (HEMOGRAM)on 01-07-2025 Erythrocyte distribution width (RBC) [Ratio] 15.5 % High 11.5-15.0 [facility] Comment on above: Performed By: #### L [id number] ####Pin Setter: JULI JONES ([id number])[facility])[address] [place] [address] Hematocrit (Bld) [Volume fraction] 24.9 % Low 35.0-47.0 [facility] Comment on above: Performed By: #### L AB294 ####Pin Setter: JULI JONES ([id number])[facility])[address] [place] [address] Hemoglobin (Bld) [Mass/Vol] 7.9 g/dL Low 11.7-16.0 [facility] Comment on above: Performed By: #### L AB294 ####Pin Setter: JULI JONES ([id number])[address] MCH (RBC) [Entitic mass] 31.6 pg Normal 26.0-34.0 [facility] Comment on above: Performed By: #### L [id number] ####Pin Setter: JULI JONES ([id number])[facility])[address] [place] [address] MCHC 31.7 % Normal 30.5-36.0 [facility] Comment on above: Performed By: #### L AB294 ####Pin Setter: JULI JONES ([id number])[facility])[address] [place] [address] MCV (RBC) [Entitic vol] 99.6 fL High 77.0-99.0 [facility] Comment on above: Performed By: #### L [id number] ####Pin Setter: JULI JONES ([id number])[address] Platelet mean volume (Bld) [Entitic vol] 9.0 fL Normal 9.0-12.7 [facility] Comment on above: Performed By: #### L [id number] ####Pin Setter: JULI JONES ([id number])[facility])[address] [place] [address] Platelets (Bld) [#/Vol] 282 10*3/uL Normal 140-440 [facility] Comment on above: Performed By: #### L [id number] ####Pin Setter: JULI JONES ([id number])[address] RBC (Bld) [#/Vol] 2.50 10*6/uL Low 3.80-5.20 [facility] Comment on above: Performed By: #### L [id number] ####Pin Setter: JULI JONES ([id number])[address] WBC (Bld) [#/Vol] 7.8 10*3/uL Normal 3.6-10.7 [facility] Comment on above: Performed By: #### L [id number] ####Pin Setter: JULI JONES ([id number])[facility])[address] [place] [address] CBC panel Auto (Bld)on 01-07 Erythrocyte distribution width (RBC) [Ratio] 15.5 % High 11.5 - 15.0 % [facility] Hematocrit (Bld) [Volume fraction] 24.9 % Low 35.0 - 47.0 % [facility] Hemoglobin (Bld) [Mass/Vol] 7.9 g/dL Low 11.7 - 16.0 g/dL [facility] Interpretation and review of laboratory results Abnormal [facility] MCH (RBC) [Entitic mass] 31.6 pg 26.0 - 34.0 pg [facility] MCHC (RBC) [Mass/Vol] 31.7 % 30.5 - 36.0 % [facility] MCV (RBC) [Entitic vol] 99.6 fL High 77.0 - 99.0 fL [facility] Platelet mean volume (Bld) [Entitic vol] 9 fL 9.0 - 12.7 fL [facility] Platelets (Bld) [#/Vol] 282 10*3/uL 140 - 440 10*3/uL [facility] RBC (Bld) [#/Vol] 2.5 10*6/uL Low 3.80 - 5.20 10*6/uL [facility] WBC (Bld) [#/Vol] 7.8 10*3/uL 3.6 - 10.7 10*3/uL [facility] Laboratory - Chemistry and C hemistry - challengeon 01-07-2025 Glucose [Mass/Vol] 129 mg/dL High 70 - 100 mg/dL [facility] Glucose [Mass/Vol] 99 mg/dL 70 - 100 mg/dL [facility] Glucose [Mass/Vol] 108 mg/dL High 70 - 100 mg/dL [facility] No Panel Informationon 01-07 Interpretation and review of laboratory results Abnormal [facility] Performed by: [facility], [address] [place] [id number] CLIA ID: [id number] [facility] Interpretation and review of laboratory results Normal [facility] Performed by: [facility], [address] [place] [id number] CLIA ID: [id number] [facility] Interpretation and review of laboratory results Abnormal [facility] Performed by: [facility], [address] [place] [address] CLIA ID: [id number] [facility] Progress Noteon 01-07-2025 Progress Note Normal [facility] 30on 01-06-2025 30 Normal [facility] 30 Continue to monitor skin. Normal [facility] BASIC METABOLIC PANELon 05- Anion gap [Moles/Vol] 9 mmol/L Normal 3-13 [facility] Comment on above: Performed By: #### L AB15 ####Pin Setter: JULI JONES ([id number])[facility] ([facility])[address] [place] [address] Calcium [Mass/Vol] 8.3 mg/dL Low 8.4-10.2 [facility] Comment on above: Performed By: #### L AB15 ####Pin Setter: JULI JONES ([id number])[facility] ([facility])[address] [place] [address] Chloride [Moles/Vol] 101 mmol/L Normal 98-107 [facility] Comment on above: Performed By: #### L AB15 ####Pin Setter: JULI JONES ([id number])[facility])[address] [place] [address] CO2 [Moles/Vol] 22 mmol/L Normal 22-29 [facility] Comment on above: Performed By: #### L AB15 ####Pin Setter: JULI JONES ([id number])[facility])[address] [place] [address] Creatinine [Mass/Vol] 2.19 mg/dL High 0.57-1.11 [facility] Comment on above: Performed By: #### L AB15 ####Pin Setter: JULI JONES ([id number])[address] GLOMERULAR FILTRATION RATE ML/MIN/1.73 SQ M.PREDICTED 25.7 mL/min/1.73m*2 Low >60.0 [facility] Comment on above: Result Comment: Calc ulation based on the Chronic Kidney Disease Epidemiology Collaboration (CKD-EPI) equation refit without adjustment for race Performed By: #### L AB15 ####Pin Setter: JULI JONES ([id number])[facility])[address] [place] [address] Glucose [Mass/Vol] 79 mg/dL Normal 74-100 [facility] Comment on above: Performed By: #### L AB15 ####Pin Setter: JULI JONES ([id number])[facility])[address] [place] [address] Potassium [Moles/Vol] 5.1 mmol/L Normal 3.5-5.1 [facility] Comment on above: Result Comment: [facility] potassium values may be up to 0.5 mmol/L lower than serum values. Performed By: #### L AB15 ####Pin Setter: JULI JONES ([id number])[facility])[address] [place] [address] Sodium [Moles/Vol] 132 mmol/L Low 136-145 [facility] Comment on above: Performed By: #### L AB15 ####Pin Setter: JULI JONES ([id number])[facility] ([facility])[address] [place] [address] Urea nitrogen [Mass/Vol] 30 mg/dL High 9-23 [facility] Comment on above: Performed By: #### L AB15 ####Pin Setter: JULI JONES ([id number])[facility] ([facility])[address] [place] [address] Basic metabolic 1998 panelon 01-06-2025 Anion gap [Moles/Vol] 9 mmol/L 3 - 13 mmol/L [facility] Calcium [Mass/Vol] 8.3 mg/dL Low 8.4 - 10. 2 mg/dL [facility] Chloride [Moles/Vol] 101 mmol/L 98 - 10 7 mmol/L [facility] CO2 [Moles/Vol] 22 mmol/L 22 - 29 mmol/L [facility] Creatinine [Mass/Vol] 2.19 mg/dL High 0.57 - 1.11 mg/dL [facility] GFR/1.73 sq M.predicted (S/P/Bld) [Vol rate/Area] 25.7 mL/min Low - PINF [facility] Comment on above: Calculation based on the Chronic Kidney Disease Epidemiology Collaboration (CKD-EPI) equation refit without adjustment for race Glucose [Mass/Vol] 79 mg/dL 74 - 100 mg/dL [facility] Interpretation and review of laboratory results Abnormal [facility] Potassium [Moles/Vol] 5.1 mmol/L 3.5 - 5.1 mmol/L [facility] Comment on above: Plasma potassium batsheva ues may be up to 0.5 mmol/L lower than serum values. Sodium [Moles/Vol] 132 mmol/L Low 136 - 145 mmol/L [facility] Urea nitrogen [Mass/Vol] 30 mg/dL High 9 - 23 mg/dL [facility] CBC (HEMOGRAM)on 01-06-2025 Erythrocyte distribution width (RBC) [Ratio] 15.0 % Normal 11.5-15.0 [facility] Comment on above: Performed By: #### L [id number] ####Pin Setter: JULI JONES ([id number])[facility])[address] [place] [address] Hematocrit (Bld) [Volume fraction] 23.3 % Low 35.0-47.0 [facility] Comment on above: Performed By: #### L [id number] ####Pin Setter: JULI JONES ([id number])[facility])[address] [place] [address] Hemoglobin (Bld) [Mass/Vol] 7.4 g/dL Low 11.7-16.0 [facility] Comment on above: Performed By: #### L [id number] ####Pin Setter: JULI JONES ([id number])[address] MCH (RBC) [Entitic mass] 31.4 pg Normal 26.0-34.0 [facility] Comment on above: Performed By: #### L [id number] ####Pin Setter: JULI JONES ([id number])[facility])[address] [place] [address] MCHC 31.8 % Normal 30.5-36.0 [facility] Comment on above: Performed By: #### L AB294 ####Pin Setter: JULI JONES ([id number])[facility])[address] [place] [address] MCV (RBC) [Entitic vol] 98.7 fL Normal 77.0-99.0 [facility] Comment on above: Performed By: #### L AB294 ####Pin Setter: JULI JONES ([id number])[address] Platelet mean volume (Bld) [Entitic vol] 9.1 fL Normal 9.0-12.7 [facility] Comment on above: Performed By: #### L [id number] ####Pin Setter: JULI JONES ([id number])[facility])[address] [place] [address] Platelets (Bld) [#/Vol] 303 10*3/uL Normal 140-440 [facility] Comment on above: Performed By: #### L [id number] ####Pin Setter: JULI JONES ([id number])[address] RBC (Bld) [#/Vol] 2.36 10*6/uL Low 3.80-5.20 [facility] Comment on above: Performed By: #### L AB294 ####Pin Setter: JULI JONES ([id number])[address] WBC (Bld) [#/Vol] 8.5 10*3/uL Normal 3.6-10.7 [facility] Comment on above: Performed By: #### L [id number] ####Pin Setter: JULI JONES ([id number])[facility])[address] [place] [address] CBC panel Auto (Bld)on 01-06 Erythrocyte distribution width (RBC) [Ratio] 15 % 11.5 - 15.0 % [facility] Hematocrit (Bld) [Volume fraction] 23.3 % Low 35.0 - 47.0 % [facility] Hemoglobin (Bld) [Mass/Vol] 7.4 g/dL Low 11.7 - 16.0 g/dL [facility] Interpretation and review of laboratory results Abnormal [facility] MCH (RBC) [Entitic mass] 31.4 pg 26.0 - 34.0 pg [facility] MCHC (RBC) [Mass/Vol] 31.8 % 30.5 - 36.0 % [facility] MCV (RBC) [Entitic vol] 98.7 fL 77.0 - 99.0 fL [facility] Platelet mean volume (Bld) [Entitic vol] 9.1 fL 9.0 - 12.7 fL [facility] Platelets (Bld) [#/Vol] 303 10*3/uL 140 - 440 10*3/uL [facility] RBC (Bld) [#/Vol] 2.36 10*6/uL Low 3.80 - 5.20 10*6/uL [facility] WBC (Bld) [#/Vol] 8.5 10*3/uL 3.6 - 10.7 10*3/uL [facility] Nursing Noteon 01-06-2025 Nursing Note Rn gave nightly meds , incluing prns requested. Head to toe assessment done. Pt requested a diet gignger it was given nothing else needed. Bed in lowest position, brakes locked, bed alarm on and call light in reach. [facility] Nursing Note [facility] Progress Noteon 01-06-2025 Progress Note [facility] 3001-05-2025 30 [facility] 30 [facility] [id number] 01-05-2025 [id number] HEAD OF TRAINING AND DEVELOPMENT asked to review [facility] for return of Level II Pasrr. [facility] states that it was referred on 01/02/25 with no results back at this time. [facility] notified. [facility] Nursing Noteon 01-05-2025 Nursing Note Pt asked for water t o be refilled and a diet kathy kun. [facility] Nursing Note Rn passed nightly me ds and talked to pt about getting blood work done tonight and pt agreed. [facility] Nursing Note RN went into room to introduce self to pt, update white board and go over nightly meds. Pt was awake laying in bed and okay with all meds. Pt needed nothing else at this time. Bed in lowest position, brakes locked and call light with in reach, [facility] Nursing Note Patient refused to b e turned to apply ET mix. Patient educated on the importance of ET mix. [facility] Nursing Note Patient refused bloo dwork for dayshift RN. Provider notified. [facility] Nursing Note Patient refusing mor ron blood work. Provider notified. Lea Clarke RN [facility] Progress Noteon 01-05-2025 Progress Note [facility] 30on 01-04-2025 30 [facility] [id number] 01-04-2025 [id number] Normal [facility] Nursing Noteon 01-04-2025 Nursing Note Patient refusing mor ron blood work. Provider notified. Normal [facility] Progress Noteon 01-04-2025 Progress Note Normal [facility] Progress Note Normal [facility] [id number] 01-03-2025 [id number] Normal [facility] Nursing Noteon 01-03-2025 Nursing Note Patient refusing mor ron blood work. Provider notified. Normal [facility] Progress Noteon 01-03-2025 Progress Note Normal [facility] Progress Note Normal [facility] [id number] 01-02-2025 [id number] Normal [facility] BASIC METABOLIC PANELon 12-14 Anion gap [Moles/Vol] 9 mmol/L Normal 3-13 [facility] Comment on above: Performed By: #### L AB15 ####Pin Setter: JULI JONES ([id number])[facility])[address] [place] [address] Calcium [Mass/Vol] 8.0 mg/dL Low 8.4-10.2 [facility] Comment on above: Performed By: #### L AB15 ####Pin Setter: JULI JONES ([id number])[facility] ([facility])[address] [place] [address] [place] Chloride [Moles/Vol] 102 mmol/L Normal 98-107 [facility] Comment on above: Performed By: #### L AB15 ####Pin Setter: JULI JONES ([id number])[facility] ([facility])[address] [place] [address] [place] CO2 [Moles/Vol] 21 mmol/L Low 22-29 [facility] Comment on above: Performed By: #### L AB15 ####Pin Setter: JULI JONES ([id number])[facility] ([facility])[address] [place] [address] [place] Creatinine [Mass/Vol] 2.30 mg/dL High 0.57-1.11 [facility] Comment on above: Performed By: #### L AB15 ####Pin Setter: JULI JONES ([id number])[facility])[address] [place] [address] GLOMERULAR FILTRATION RATE ML/MIN/1.73 SQ M.PREDICTED 24.2 mL/min/1.73m*2 Low >60.0 [facility] Comment on above: Result Comment: Calc ulation based on the Chronic Kidney Disease Epidemiology Collaboration (CKD-EPI) equation refit without adjustment for race Performed By: #### L AB15 ####Pin Setter: JULI JONES ([id number])[facility])[address] [place] [address] Glucose [Mass/Vol] 75 mg/dL Normal 74-100 [facility] Comment on above: Performed By: #### L AB15 ####Pin Setter: JULI JONES ([id number])[address] Potassium [Moles/Vol] 4.2 mmol/L Normal 3.5-5.1 [facility] Comment on above: Result Comment: [facility] potassium values may be up to 0.5 mmol/L lower than serum values. Performed By: #### L AB15 ####Pin Setter: JULI JONES ([id number])[facility])[address] [place] [address] Sodium [Moles/Vol] 132 mmol/L Low 136-145 [facility] Comment on above: Performed By: #### L AB15 ####Pin Setter: JULI JONES ([id number])[facility])[address] [place] [address] Urea nitrogen [Mass/Vol] 14 mg/dL Normal 9-23 [facility] Comment on above: Performed By: #### L AB15 ####Pin Setter: JULI JONES ([id number])[facility])[address] [place] [address] Basic metabolic 1998 panelon 01-02-2025 Anion gap [Moles/Vol] 9 mmol/L 3 - 13 mmol/L [facility] Calcium [Mass/Vol] 8 mg/dL Low 8.4 - 10. 2 mg/dL [facility] Chloride [Moles/Vol] 102 mmol/L 98 - 10 7 mmol/L [facility] CO2 [Moles/Vol] 21 mmol/L Low 22 - 29 mmol/L [facility] Creatinine [Mass/Vol] 2.3 mg/dL High 0.57 - 1.11 mg/dL [facility] GFR/1.73 sq M.predicted (S/P/Bld) [Vol rate/Area] 24.2 mL/min Low - PINF [facility] Comment on above: Calculation based on the Chronic Kidney Disease Epidemiology Collaboration (CKD-EPI) equation refit without adjustment for race Glucose [Mass/Vol] 75 mg/dL 74 - 100 mg/dL [facility] Interpretation and review of laboratory results Abnormal [facility] Potassium [Moles/Vol] 4.2 mmol/L 3.5 - 5.1 mmol/L [facility] Comment on above: Plasma potassium batsheva ues may be up to 0.5 mmol/L lower than serum values. Sodium [Moles/Vol] 132 mmol/L Low 136 - 145 mmol/L [facility] Urea nitrogen [Mass/Vol] 14 mg/dL 9 - 23 mg/dL [facility] CBC (HEMOGRAM)on 01-02-2025 Erythrocyte distribution width (RBC) [Ratio] 14.1 % Normal 11.5-15.0 [facility] Comment on above: Performed By: #### L [id number] ####Pin Setter: JULI JONES ([id number])[address] Hematocrit (Bld) [Volume fraction] 21.9 % Low 35.0-47.0 [facility] Comment on above: Performed By: #### L AB294 ####Pin Setter: JULI JONES ([id number])[address] Hemoglobin (Bld) [Mass/Vol] 7.1 g/dL Low 11.7-16.0 [facility] Comment on above: Performed By: #### L [id number] ####Pin Setter: JULI JONES ([id number])[facility])[address] [place] [address] MCH (RBC) [Entitic mass] 31.1 pg Normal 26.0-34.0 [facility] Comment on above: Performed By: #### L AB294 ####Pin Setter: JULI JONES ([id number])[facility])[address] [place] [address] MCHC 32.4 % Normal 30.5-36.0 [facility] Comment on above: Performed By: #### L [id number] ####Pin Setter: JULI JONES ([id number])[facility])[address] [place] [address] MCV (RBC) [Entitic vol] 96.1 fL Normal 77.0-99.0 [facility] Comment on above: Performed By: #### L [id number] ####Pin Setter: JULI JONES ([id number])[facility])[address] [place] [address] Platelet mean volume (Bld) [Entitic vol] 8.7 fL Low 9.0-12.7 [facility] Comment on above: Performed By: #### L [id number] ####Pin Setter: JULI JONES ([id number])[facility])[address] [place] [address] Platelets (Bld) [#/Vol] 303 10*3/uL Normal 140-440 [facility] Comment on above: Performed By: #### L [id number] ####Pin Setter: JULI JONES ([id number])[facility])[address] [place] [address] RBC (Bld) [#/Vol] 2.28 10*6/uL Low 3.80-5.20 [facility] Comment on above: Performed By: #### L [id number] ####Pin Setter: JULI JONES ([id number])[facility] ([facility])[address] [place] [address] WBC (Bld) [#/Vol] 7.5 10*3/uL Normal 3.6-10.7 [facility] Comment on above: Performed By: #### L [id number] ####Pin Setter: JULI JONES ([id number])[facility] [place] [address] CBC panel Auto (Bld)on 01-02 Erythrocyte distribution width (RBC) [Ratio] 14.1 % 11.5 - 15.0 % [facility] Hematocrit (Bld) [Volume fraction] 21.9 % Low 35.0 - 47.0 % [facility] Hemoglobin (Bld) [Mass/Vol] 7.1 g/dL Low 11.7 - 16.0 g/dL [facility] Interpretation and review of laboratory results Abnormal [facility] MCH (RBC) [Entitic mass] 31.1 pg 26.0 - 34.0 pg [facility] MCHC (RBC) [Mass/Vol] 32.4 % 30.5 - 36.0 % [facility] MCV (RBC) [Entitic vol] 96.1 fL 77.0 - 99.0 fL [facility] Platelet mean volume (Bld) [Entitic vol] 8.7 fL Low 9.0 - 12.7 fL [facility] Platelets (Bld) [#/Vol] 303 10*3/uL 140 - 440 10*3/uL [facility] RBC (Bld) [#/Vol] 2.28 10*6/uL Low 3.80 - 5.20 10*6/uL [facility] WBC (Bld) [#/Vol] 7.5 10*3/uL 3.6 - 10.7 10*3/uL [facility] Consulton 01-02-2025 Consult Normal [facility] IRON AND TIBCon 01-02-2025 IRON BINDING CAPACITY 146 ug/dL Low 250-450 [facility] Comment on above: Performed By: #### L [id number] ####Pin Setter: JULI JONES ([id number])[facility] [place] [address] IRON SATURATION 25.3 % Normal 20.0-50.0 [facility] Comment on above: Performed By: #### L [id number] ####Pin Setter: JULI PREETHIHolly ([id number])[facility] ([facility])[address] [place] [address] IRON, TOTAL 37 ug/dL Low 50-170 [facility] Comment on above: Performed By: #### L [id number] ####Pin Setter: JULI YINGRAULITO ([id number])[facility])[address] [place] [address] Iron and Iron binding capaci ty panelon 01-02-2025 Interpretation and review of laboratory results Abnormal [facility] Iron [Mass/Vol] 37 ug/dL Low 50 - 170 ug/dL [facility] Iron binding capacity [Mass/Vol] 146 ug/dL Low 250 - 450 ug/dL [facility] Iron saturation [Mass fraction] 25.3 % 20.0 - 50.0 % [facility] Laboratory - Drug toxicology on 01-02-2025 lamoTRIgine [Mass/Vol] 9.4 Del Cid [facility] Comment on above: This test was developed and its analytical performance characteristics have been determined by [employer] [place], [place]. It has not been cleared or approved by the U.S. Food and Drug Administration. This assay has been validated pursuant to the CLIA regulations and is used for clinical purposes. Test Performed by [facility], [employer] [facility], [address] [place] [address] Santhosh Murrieta M.D., Ph.D., Director of Laboratories , CLIA [id number] Laboratory - Microbiology an d Antimicrobial susceptibilityOrdered By: Britany Chowdhury on 01-02-2025 C. auris ITS2 gene PAULINA+probe Ql (Unsp spec) Not detected Not Detected [facility] Laboratory - Microbiology an d Antimicrobial susceptibilityOrdered By: Renee Jackson on 01-02-2025 A. baumannii DNA PAULINA+probe Ql (Unsp spec) Not detected Not Detected [facility] No Panel Informationon 01-02 [facility] No Panel InformationOrdered By: Britany Chowdhury on 01-02-2025 Interpretation and review of laboratory results Normal [facility] A negative result do es not rule out infection or colonization with Jah auris. The real-time PCR assay to detect Jah auris DNA was developed and validated by the [facility]. Jah auris culture (if appropriate) was developed by the [facility] and its performance characteristics established by the [facility]. These tests have not been cleared or approved by the U.S. Food and Drug Administration. [facility] No Panel InformationOrdered By: Renee Jackson on 01-02-2025 Interpretation and review of laboratory results Normal [facility] Carbapenem resistant Acinetobacter baumannii Colonization Culture Culture negative for carbapenem resistant Acinetobacter baumannii. 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 Sullivan responded okay to leave out and check with day team Normal [facility] Progress Noteon 01-02-2025 Progress Note Normal [facility] 30on 01-01-2025 30 Normal [facility] [id number] 01-01-2025 [id number] Normal [facility] [id number] Normal [facility] 36on 01-01-2025 36 Normal [facility] Basic metabolic 1998 panelon 01-01-2025 Anion gap [Moles/Vol] 9 mmol/L 3 - 13 mmol/L [facility] Calcium [Mass/Vol] 8 mg/dL Low 8.4 - 10. 2 mg/dL [facility] Chloride [Moles/Vol] 101 mmol/L 98 - 10 7 mmol/L [facility] CO2 [Moles/Vol] 22 mmol/L 22 - 29 mmol/L [facility] Creatinine [Mass/Vol] 2.46 mg/dL High 0.57 - 1.11 mg/dL [facility] GFR/1.73 sq M.predicted (S/P/Bld) [Vol rate/Area] 22.4 mL/min Low - PINF [facility] Comment on above: Calculation based on the Chronic Kidney Disease Epidemiology Collaboration (CKD-EPI) equation refit without adjustment for race Glucose [Mass/Vol] 76 mg/dL 74 - 100 mg/dL [facility] Interpretation and review of laboratory results Abnormal [facility] Potassium [Moles/Vol] 4.3 mmol/L 3.5 - 5.1 mmol/L [facility] Comment on above: Plasma potassium batsheva ues may be up to 0.5 mmol/L lower than serum values. Sodium [Moles/Vol] 132 mmol/L Low 136 - 145 mmol/L [facility] Urea nitrogen [Mass/Vol] 16 mg/dL 9 - 23 mg/dL [facility] CBC panel Auto (Bld)on 01-01 Erythrocyte distribution width (RBC) [Ratio] 13.9 % 11.5 - 15.0 % [facility] Hematocrit (Bld) [Volume fraction] 22.7 % Low 35.0 - 47.0 % [facility] Hemoglobin (Bld) [Mass/Vol] 7.2 g/dL Low 11.7 - 16.0 g/dL [facility] Interpretation and review of laboratory results Abnormal [facility] MCH (RBC) [Entitic mass] 30.4 pg 26.0 - 34.0 pg [facility] MCHC (RBC) [Mass/Vol] 31.7 % 30.5 - 36.0 % [facility] MCV (RBC) [Entitic vol] 95.8 fL 77.0 - 99.0 fL [facility] Platelet mean volume (Bld) [Entitic vol] 8.8 fL Low 9.0 - 12.7 fL [facility] Platelets (Bld) [#/Vol] 318 10*3/uL 140 - 440 10*3/uL [facility] RBC (Bld) [#/Vol] 2.37 10*6/uL Low 3.80 - 5.20 10*6/uL [facility] WBC (Bld) [#/Vol] 8.5 10*3/uL 3.6 - 10.7 10*3/uL [facility] Nursing Noteon 01-01-2025 Nursing Note Patient did not allo w RN to turn her to look at her wounds during morning assessment. Sacral and L posterior wounds documented initially by ED nurse. Wound care consult placed. Normal [facility] Progress Noteon 01-01-2025 Progress Note Normal [facility] Progress Note Normal [facility] Progress Note Normal [facility] 30on 12-31-2024 30 Normal [facility] [id number] 12-31-2024 [id number] Normal [facility] ACINETOBACTER BAUMANNII PCRo n 12-31-2024 ACINETOBACTER BAUMANNII PCR Normal [facility] Comment on above: Performed By: #### L [id number] ####[facility] ([facility])[address] CHRISTINA HALL [address] [place] [address] BASIC METABOLIC PANELon 12-13 Anion gap [Moles/Vol] 9 mmol/L Normal 3-13 [facility] Comment on above: Performed By: #### L [id number] ####Pin Setter: JULI JONES ([id number])[facility] ([facility])[address] [place] [address] Calcium [Mass/Vol] 8.0 mg/dL Low 8.4-10.2 [facility] Comment on above: Performed By: #### L [id number] ####Pin Setter: JULI JONES ([id number])[facility] ([facility])[address] [place] [address] [place] Chloride [Moles/Vol] 101 mmol/L Normal 98-107 [facility] Comment on above: Performed By: #### L [id number] ####Pin Setter: JULI JONES ([id number])[facility] ([facility])[address] [place] [address] [place] CO2 [Moles/Vol] 22 mmol/L Normal 22-29 [facility] Comment on above: Performed By: #### L [id number] ####Pin Setter: JULI JONES ([id number])[facility] ([facility])[address] [place] [address] [place] Creatinine [Mass/Vol] 2.46 mg/dL High 0.57-1.11 [facility] Comment on above: Performed By: #### L [id number] ####Pin Setter: JULI JONES ([id number])[facility] ([facility])[address] [place] [address] [place] GLOMERULAR FILTRATION RATE ML/MIN/1.73 SQ M.PREDICTED 22.4 mL/min/1.73m*2 Low >60.0 [facility] Comment on above: Result Comment: Calc ulation based on the Chronic Kidney Disease Epidemiology Collaboration (CKD-EPI) equation refit without adjustment for race Performed By: #### L [id number] ####Pin Setter: JULI JONES ([id number])[facility])[address] [place] [address] Glucose [Mass/Vol] 76 mg/dL Normal 74-100 [facility] Comment on above: Performed By: #### L [id number] ####Pin Setter: JULI JONES ([id number])[facility])[address] [place] [address] Potassium [Moles/Vol] 4.3 mmol/L Normal 3.5-5.1 [facility] Comment on above: Result Comment: [facility] potassium values may be up to 0.5 mmol/L lower than serum values. Performed By: #### L [id number] ####Pin Setter: JULI JONES ([id number])[facility])[address] [place] [address] Sodium [Moles/Vol] 132 mmol/L Low 136-145 [facility] Comment on above: Performed By: #### L [id number] ####Pin Setter: JULI JONES ([id number])[address] Urea nitrogen [Mass/Vol] 16 mg/dL Normal 9-23 [facility] Comment on above: Performed By: #### L [id number] ####Pin Setter: JULI JONES ([id number])[facility])[address] [place] [address] JAH AURIS SCREENon 12-31 JAH AURIS SCREEN Normal [facility] Comment on above: Performed By: #### L [id number] ####[facility] ([facility])[address] [place] [address] DR CHRISTINA HALL [address] [place] [address] CBC (HEMOGRAM)on 12-31-2024 Erythrocyte distribution width (RBC) [Ratio] 13.9 % Normal 11.5-15.0 [facility] Comment on above: Performed By: #### L [id number] ####Pin Setter: JULI JONES ([id number])[facility])[address] [place] [address] Hematocrit (Bld) [Volume fraction] 22.7 % Low 35.0-47.0 [facility] Comment on above: Performed By: #### L [id number] ####Pin Setter: JULI JONES ([id number])[facility])[address] [place] [address] Hemoglobin (Bld) [Mass/Vol] 7.2 g/dL Low 11.7-16.0 [facility] Comment on above: Performed By: #### L [id number] ####Pin Setter: JULI JONES ([id number])[address] MCH (RBC) [Entitic mass] 30.4 pg Normal 26.0-34.0 [facility] Comment on above: Performed By: #### L [id number] ####Pin Setter: JULI JONES ([id number])[facility])[address] [place] [address] MCHC 31.7 % Normal 30.5-36.0 [facility] Comment on above: Performed By: #### L [id number] ####Pin Setter: JULI JONES ([id number])[facility])[address] [place] [address] MCV (RBC) [Entitic vol] 95.8 fL Normal 77.0-99.0 [facility] Comment on above: Performed By: #### L [id number] ####Pin Setter: JULI JONES ([id number])[facility])[address] [place] [address] Platelet mean volume (Bld) [Entitic vol] 8.8 fL Low 9.0-12.7 [facility] Comment on above: Performed By: #### L [id number] ####Pin Setter: JULI JONES ([id number])[facility] ([facility])[address] [place] [address] Platelets (Bld) [#/Vol] 318 10*3/uL Normal 140-440 [facility] Comment on above: Performed By: #### L [id number] ####Pin Setter: JULI JONES ([id number])[facility] ([facility])[address] [place] [address] RBC (Bld) [#/Vol] 2.37 10*6/uL Low 3.80-5.20 [facility] Comment on above: Performed By: #### L [id number] ####Pin Setter: JULI JONES ([id number])[facility] ([facility])[address] [place] [address] WBC (Bld) [#/Vol] 8.5 10*3/uL Normal 3.6-10.7 [facility] Comment on above: Performed By: #### L [id number] ####Pin Setter: JULI JONES ([id number])[facility])[address] [place] [address] Progress Noteon 12-31-2024 Progress Note Normal [facility] Progress Note Normal [facility] Progress Note Normal [facility] 25-hydroxyvitamin D3 [Mass/V ol]on 12-30-2024 Interpretation and review of laboratory results Normal [facility] Target concentration : 30 - 40 ng/mL; toxicity seen at concentrations >100 ng/mL Less than 20 ng/mL: Indicative of Vit D deficiency Test performed by [employer], measuring Total Vitamin D, not individual fractions. [facility] BLOOD GAS ARTERIALon 025 AMOUNT OF OXYGEN 21 Normal [facility] Comment on above: Performed By: #### L [id number] ####Pin Setter: JULI JONES ([id number])[facility])[address] [place] [address] Base excess Calc (Bld) [Moles/Vol] 3.4 mmol/L High -3.0-3.0 [facility] Comment on above: Performed By: #### L [id number] ####Pin Setter: JULI JONES ([id number])[facility])[address] [place] [address] CO2 [Moles/Vol] 26.5 mmol/L Normal 23.0-27.0 [facility] Comment on above: Performed By: #### L [id number] ####Pin Setter: JULI JONES ([id number])[facility])[address] [place] [address] HCO3 (Bld) [Moles/Vol] 25.5 mmol/L High 21.0-25.0 [facility] Comment on above: Performed By: #### L [id number] ####Pin Setter: JULI JONES ([id number])[address] HEMOGLOBIN BLOOD GAS Normal [facility] Comment on above: Result Comment: Unab le to perform hemoglobin due to microsample. Performed By: #### L [id number] ####Pin Setter: JULI JONES ([id number])[address] OXYGEN SATURATION (%) IN ARTERIAL BLOOD 99.2 % Normal 95.0-100.0 [facility] Comment on above: Performed By: #### L [id number] ####Pin Setter: JULI JONES ([id number])[facility])[address] [place] [address] PCO2 ARTERIAL 31.9 mm Hg Low >35.0-<45. 0 [facility] Comment on above: Performed By: #### L [id number] ####Pin Setter: JULI JONES ([id number])[facility])[address] [place] [address] PH ARTERIAL 7.521 High 7.350-7.45 0 [facility] Comment on above: Performed By: #### L [id number] ####Pin Setter: JULI JONES ([id number])[facility] ([facility])[address] [place] [address] PO2 ARTERIAL 156.7 mm Hg High 80.0-100.0 [facility] Comment on above: Performed By: #### L [id number] ####Pin Setter: JULI JONES ([id number])[facility] ([facility])[address] [place] [address] SOURCE OF OXYGEN None (Room Air) [facility] Comment on above: Performed By: #### L [id number] ####Pin Setter: JULI JONES ([id number])[facility] ([facility])[address] [place] [address] CBC W Auto Differential pane l (Bld)on 12-30-2024 Basophils (Bld) [#/Vol] 0.1 10*3/uL 0.0 - 0.2 10*3/uL [employer] Basophils/100 WBC (Bld) 0.6 % 0.0 - 2.0 % [facility] [employer] Eosinophils (Bld) [#/Vol] 0.2 10*3/uL 0.0 - 0.5 10*3/uL [facility] [employer] Eosinophils/100 WBC (Bld) 2.5 % 0.0 - 6.0 % [facility] [employer] Erythrocyte distribution width (RBC) [Ratio] 14.1 % 11.5 - 15.0 % [facility] [employer] Hematocrit (Bld) [Volume fraction] 24.4 % Low 35.0 - 47.0 % [facility] [employer] Hemoglobin (Bld) [Mass/Vol] 7.7 g/dL Low 11.7 - 16.0 g/dL [facility] [employer] Immature granulocytes (Bld) [#/Vol] 0.2 10*3/uL High NINF - 0.1 10*3/uL [employer] Immature granulocytes/100 WBC (Bld) 2.4 % High 0.0 - 2.0 % [facility] [employer] Interpretation and review of laboratory results Abnormal [facility] [employer] Lymphocytes (Bld) [#/Vol] 1.8 10*3/uL 1.0 - 4.3 10*3/uL [facility] [employer] Lymphocytes/100 WBC (Bld) 22.4 % 15.0 - 45.0 % [facility] MCH (RBC) [Entitic mass] 30.9 pg 26.0 - 34.0 pg [facility] MCHC (RBC) [Mass/Vol] 31.6 % 30.5 - 36.0 % [facility] MCV (RBC) [Entitic vol] 98 fL 77.0 - 99.0 fL [facility] Monocytes (Bld) [#/Vol] 0.9 10*3/uL 0.0 - 0.9 10*3/uL [facility] Monocytes/100 WBC (Bld) 10.9 % 5.0 - 13.0 % [facility] Neutrophils (Bld) [#/Vol] 4.8 10*3/uL 1.8 - 7.5 10*3/uL [facility] Neutrophils/100 WBC (Bld) 61.2 % 38.0 - 82.0 % [facility] Nucleated RBC/100 WBC (Bld) [Ratio] 0 % [facility] Platelet mean volume (Bld) [Entitic vol] 8.6 fL Low 9.0 - 12.7 fL [facility] Platelets (Bld) [#/Vol] 268 10*3/uL 140 - 440 10*3/uL [facility] RBC (Bld) [#/Vol] 2.49 10*6/uL Low 3.80 - 5.20 10*6/uL [facility] WBC (Bld) [#/Vol] 7.9 10*3/uL 3.6 - 10.7 10*3/uL [facility] CBC WITH AUTO DIFFERENTIALon 12-30-2024 Basophils (Bld) [#/Vol] 0.1 10*3/uL Normal 0.0-0.2 [facility] Comment on above: Performed By: #### L [id number] ####Pin Setter: JULI JONES ([id number])[address] Basophils/100 WBC (Bld) 0.6 % Normal 0.0-2.0 [facility] Comment on above: Performed By: #### L [id number] ####Pin Setter: JULI JONES ([id number])[facility] ([facility])[address] [place] [address] Eosinophils (Bld) [#/Vol] 0.2 10*3/uL Normal 0.0-0.5 [facility] Comment on above: Performed By: #### L [id number] ####Pin Setter: JULI JONES ([id number])[facility])[address] [place] [address] Eosinophils/100 WBC (Bld) 2.5 % Normal 0.0-6.0 [facility] Comment on above: Performed By: #### L [id number] ####Pin Setter: JULI JONES ([id number])[facility])[address] [place] [address] Erythrocyte distribution width (RBC) [Ratio] 14.1 % Normal 11.5-15.0 [facility] Comment on above: Performed By: #### L [id number] ####Pin Setter: JULI JONES ([id number])[address] Hematocrit (Bld) [Volume fraction] 24.4 % Low 35.0-47.0 [facility] Comment on above: Performed By: #### L [id number] ####Pin Setter: JULI JONES ([id number])[address] Hemoglobin (Bld) [Mass/Vol] 7.7 g/dL Low 11.7-16.0 [facility] Comment on above: Performed By: #### L [id number] ####Pin Setter: JULI JONES ([id number])[facility])[address] [place] [address] IMMATURE GRANS % 2.4 % High 0.0-2.0 [facility] Comment on above: Performed By: #### L [id number] ####Pin Setter: JULI JONES ([id number])[address] IMMATURE GRANS ABSOLUTE 0.2 10*3/uL High <0.1 [facility] Comment on above: Performed By: #### L [id number] ####Pin Setter: JULI JONES ([id number])[facility])[address] [place] [address] Lymphocytes (Bld) [#/Vol] 1.8 10*3/uL Normal 1.0-4.3 [facility] Comment on above: Performed By: #### L [id number] ####Pin Setter: JULI JONES ([id number])[facility])[address] [place] [address] Lymphocytes/100 WBC (Bld) 22.4 % Normal 15.0-45.0 [facility] Comment on above: Performed By: #### L [id number] ####Pin Setter: JULI JONES ([id number])[facility])[address] [place] [address] MCH (RBC) [Entitic mass] 30.9 pg Normal 26.0-34.0 [facility] Comment on above: Performed By: #### L [id number] ####Pin Setter: JULI JONES ([id number])[facility])[address] [place] [address] MCHC 31.6 % Normal 30.5-36.0 [facility] Comment on above: Performed By: #### L [id number] ####Pin Setter: JULI JONES ([id number])[address] MCV (RBC) [Entitic vol] 98.0 fL Normal 77.0-99.0 [facility] Comment on above: Performed By: #### L [id number] ####Pin Setter: JULI JONES ([id number])[address] Monocytes (Bld) [#/Vol] 0.9 10*3/uL Normal 0.0-0.9 [facility] Comment on above: Performed By: #### L [id number] ####Pin Setter: JULI JONES ([id number])[facility] ([facility])[address] [place] [address] Monocytes/100 WBC (Bld) 10.9 % Normal 5.0-13.0 [facility] Comment on above: Performed By: #### L [id number] ####Pin Setter: JULI JONES ([id number])[facility] ([facility])[address] [place] [address] NEUTROPHILS ABSOLUTE 4.8 10*3/uL Normal 1.8-7.5 [facility] Comment on above: Performed By: #### L [id number] ####Pin Setter: JULI JONES ([id number])[facility] ([facility])[address] [place] [address] Neutrophils/100 WBC (Bld) 61.2 % Normal 38.0-82.0 [facility] Comment on above: Performed By: #### L [id number] ####Pin Setter: JULI JONES ([id number])[facility] ([facility])[address] [place] [address] NRBC 0.0 /100 WBCs Normal 0.0-2.0 [facility] Comment on above: Performed By: #### L [id number] ####Pin Setter: JULI JONES ([id number])[facility] ([facility])[address] [place] [address] Platelet mean volume (Bld) [Entitic vol] 8.6 fL Low 9.0-12.7 [facility] Comment on above: Performed By: #### L [id number] ####Pin Setter: JULI JONES ([id number])[facility] ([facility])[address] [place] [address] [place] Platelets (Bld) [#/Vol] 268 10*3/uL Normal 140-440 [facility] Comment on above: Performed By: #### L [id number] ####Pin Setter: JULI JONES ([id number])[facility] ([facility])[address] [place] [address] [place] RBC (Bld) [#/Vol] 2.49 10*6/uL Low 3.80-5.20 [facility] Comment on above: Performed By: #### L [id number] ####Pin Setter: JULI JONES ([id number])[facility])[address] [place] [address] WBC (Bld) [#/Vol] 7.9 10*3/uL Normal 3.6-10.7 [facility] Comment on above: Performed By: #### L [id number] ####Pin Setter: JULI JONES ([id number])[facility])[address] [place] [address] COMPLETE URINALYSIS WITH REF ANN TO CULTUREon 12-30-2024 BACTERIA (#/HPF) IN URINE Few Abnormal Negative [facility] Comment on above: Performed By: #### L [id number] ####Pin Setter: JULI JONES ([id number])[facility])[address] [place] [address] BILIRUBIN, TOTAL PRESENCE IN URINE Negative Normal Negative [facility] Comment on above: Performed By: #### L [id number] ####Pin Setter: JULI JONES ([id number])[facility])[address] [place] [address] Clarity (U) Clear Normal Clear [facility] Comment on above: Performed By: #### L [id number] ####Pin Setter: JULI JONES ([id number])[address] Color (U) Colorless Normal Lt. Yellow [facility] Comment on above: Performed By: #### L [id number] ####Pin Setter: JULI JONES ([id number])[facility])[address] [place] [address] GLUCOSE (MG/DL) IN URINE Normal Normal Normal (<70) [facility] Comment on above: Performed By: #### L [id number] ####Pin Setter: JULI JONES ([id number])[facility] ([facility])[address] [place] [address] HEMOGLOBIN PRESENCE IN URINE Negative Normal Negative [facility] Comment on above: Performed By: #### L [id number] ####Pin Setter: JULI JONES ([id number])[facility] ([facility])[address] [place] [address] HYALINE CASTS (#/LPF) IN URINE SEDIMENT BY MICROSCOPY Negative Normal Negative [facility] Comment on above: Performed By: #### L [id number] ####Pin Setter: JULI JONES ([id number])[facility] ([facility])[address] [place] [address] Ketones Ql (U) Negative Normal Negative [facility] Comment on above: Performed By: #### L [id number] ####Pin Setter: JULI JONES ([id number])[facility] ([facility])[address] [place] [address] LEUKOCYTE ESTERASE PRESENCE IN URINE BY TEST STRIP Negative Normal Negative [facility] Comment on above: Performed By: #### L [id number] ####Pin Setter: JULI JONES ([id number])[facility] ([facility])[address] [place] [address] NITRITE PRESENCE IN URINE Negative Normal Negative [facility] Comment on above: Performed By: #### L [id number] ####Pin Setter: JULI JONES ([id number])[facility] ([facility])[address] [place] [address] pH (U) 7.0 [pH] Normal 5.0-8.0 [facility] Comment on above: Performed By: #### L [id number] ####Pin Setter: JULI JONES ([id number])[facility] ([facility])[address] [place] [address] Protein (U) [Mass/Vol] 20 mg/dL Abnormal Negative [facility] Comment on above: Performed By: #### L [id number] ####Pin Setter: JULI JONES ([id number])[facility] ([facility])[address] [place] [address] RBC (#/HPF) IN URINE SEDIMENT 0-2 Normal 0-2 [facility] Comment on above: Performed By: #### L [id number] ####Pin Setter: JULI JONES ([id number])[facility] ([facility])[address] [place] [address] Specific gravity (U) [Rel density] 1.005 Normal 1.005-1.03 0 [facility] Comment on above: Result Comment: ORDSergey R COMMENTS:A specimen with <=10 WBC is not consistent with inflammation. This specimen will not reflex to a urine culture. Performed By: #### L [id number] ####Pin Setter: JULI JONES ([id number])[facility] ([facility])[address] [place] [address] SQUAMOUS EPITHELIAL CELLS (#/HPF) IN URINE SEDIMENT 0-2 Normal 3-5 [facility] Comment on above: Performed By: #### L [id number] ####Pin Setter: JULI JONES ([id number])[facility] ([facility])[address] [place] [address] UROBILINOGEN (MG/DL) IN URINE Normal Normal Normal (0-1) [facility] Comment on above: Performed By: #### L [id number] ####Pin Setter: JULI JONES ([id number])[facility] ([facility])[address] [place] [address] WBC (LEUKOCYTE) (#/HPF) IN URINE SEDIMENT 0-2 Normal 0-5 [facility] Comment on above: Performed By: #### L [id number] ####Pin Setter: JULI JONES ([id number])[facility])[address] [place] [address] COMPREHENSIVE METABOLIC PANE Nestor 12-30-2024 Albumin [Mass/Vol] 2.6 g/dL Low 3.5-5.0 [facility] Comment on above: Performed By: #### L [id number] ####Pin Setter: JULI JONES ([id number])[facility] [place] [address] ALP [Catalytic activity/Vol] 54 U/L Normal 40-150 [facility] Comment on above: Performed By: #### L [id number] ####Pin Setter: JULI JONES ([id number])[facility] ([facility])[address] [place] [address] [place] ALT [Catalytic activity/Vol] U/L Normal <30 [facility] Comment on above: Performed By: #### L [id number] ####Pin Setter: JULI JONES ([id number])[facility] ([facility])[address] [place] [address] Anion gap [Moles/Vol] 8 mmol/L Normal 3-13 [facility] Comment on above: Performed By: #### L [id number] ####Pin Setter: JULI JONES ([id number])[facility] ([facility])[address] [place] [address] AST [Catalytic activity/Vol] 22 U/L Normal <34 [facility] Comment on above: Performed By: #### L [id number] ####Pin Setter: JULI JONES ([id number])[facility] ([facility])[address] [place] [address] Bilirubin [Mass/Vol] 0.2 mg/dL Normal <1.2 [facility] Comment on above: Performed By: #### L [id number] ####Pin Setter: JULI JONES ([id number])[facility] ([facility])[address] [place] [address] Calcium [Mass/Vol] 8.5 mg/dL Normal 8.4-10.2 [facility] Comment on above: Performed By: #### L [id number] ####Pin Setter: JULI JONES ([id number])[facility] ([facility])[address] [place] [address] Chloride [Moles/Vol] 103 mmol/L Normal 98-107 [facility] Comment on above: Performed By: #### L [id number] ####Pin Setter: JULI JONES ([id number])[facility] ([facility])[address] [place] [address] CO2 [Moles/Vol] 24 mmol/L Normal 22-29 [facility] Comment on above: Performed By: #### L [id number] ####Pin Setter: JULI JONES ([id number])[facility])[address] [place] [address] Creatinine [Mass/Vol] 2.72 mg/dL High 0.57-1.11 [facility] Comment on above: Performed By: #### L [id number] ####Pin Setter: JULI JONES ([id number])[facility])[address] [place] [address] GLOMERULAR FILTRATION RATE ML/MIN/1.73 SQ M.PREDICTED 19.8 mL/min/1.73m*2 Low >60.0 [facility] Comment on above: Result Comment: Calc ulation based on the Chronic Kidney Disease Epidemiology Collaboration (CKD-EPI) equation refit without adjustment for race Performed By: #### L [id number] ####Pin Setter: JULI JONES ([id number])[facility] ([facility])[address] [place] [address] Glucose [Mass/Vol] 91 mg/dL Normal 74-100 [facility] Comment on above: Performed By: #### L [id number] ####Pin Setter: JULI JONES ([id number])[facility])[address] [place] [address] [place] Potassium [Moles/Vol] 4.0 mmol/L Normal 3.5-5.1 [facility] Comment on above: Result Comment: [facility] potassium values may be up to 0.5 mmol/L lower than serum values. Performed By: #### L [id number] ####Pin Setter: JULI JONES ([id number])[facility] ([facility])[address] [place] [address] Protein [Mass/Vol] 6.5 g/dL Normal 6.4-8.3 [facility] Comment on above: Performed By: #### L [id number] ####Pin Setter: JULI HECANDISHolly ([id number])[facility] ([facility])[address] [place] [address] Sodium [Moles/Vol] 135 mmol/L Low 136-145 [facility] Comment on above: Performed By: #### L [id number] ####Pin Setter: JULI JONES ([id number])[facility] ([facility])[address] [place] [address] Urea nitrogen [Mass/Vol] 15 mg/dL Normal 9-23 [facility] Comment on above: Performed By: #### L [id number] ####Pin Setter: JULI PREETHIHolly ([id number])[facility] ([facility])[address] [place] [address] CT HEAD WO IV CONTRASTon CT HEAD WO IV CONTRAST Normal [facility] CT Head WO contraston 2024 The etiology of symp toms is not certain. Consider follow-up. Comment: Please note this report has been produced using speech recognition software and may contain errors related to that system including errors in grammar, punctuation, and spelling as well as words and phrases that may be inappropriate. If there are any questions or concerns please feel free to contact the dictating provider for clarification Report Dictated on Electronically Signed By: Dinesh Reed MD Electronically Signed Date/Time: 12/30/2024 6:45 PM [facility] Patient Name: JESSY WEN : [address] [facility]#: [id number] Exam Date/Time: 12/30/2024 18:23 Procedure: CT HEAD WO IV CONTRAST Ordering Provider: GONZALEZ PALLAVI Reason For Exam: Mental status change, unknown cause Indication: Mental status change Comparison date: No comparison. FINDINGS: Dose reduction was employed with automated exposure control.3 mm unenhanced imaging of the brain performed. Images viewed in multiple orthogonal planes. EXAMINATION LIMITED BY MOTION, STREAK ARTIFACT. Acute findings: No convincing significant acute findings within limits of the study. Bony structures:Unremarkable as seen. Orbits within normal limits, limited lack of contrast. Review of the paranasal sinuses shows no air-fluid levels. [facility] Dinesh Reed MD - 12/30/2024 Patient Name: JESSY MCKEON : [address] [facility]#: [id number] Exam Date/Time: 12/30/2024 18:23 Procedure: CT HEAD WO IV CONTRAST Ordering Provider: GONZALEZ PALLAVI Reason For Exam: Mental status change, unknown cause Indication: Mental status change Comparison date: No comparison. FINDINGS: Dose reduction was employed with automated exposure control.3 mm unenhanced imaging of the brain performed. Images viewed in multiple orthogonal planes. EXAMINATION LIMITED BY MOTION, STREAK ARTIFACT. Acute findings: No convincing significant acute findings within limits of the study. Bony structures:Unremarkable as seen. Orbits within normal limits, limited lack of contrast. Review of the paranasal sinuses shows no air-fluid levels. IMPRESSION: The etiology of symptoms is not certain. Consider follow-up. Comment: Please note this report has been produced using speech recognition software and may contain errors related to that system including errors in grammar, punctuation, and spelling as well as words and phrases that may be inappropriate. If there are any questions or concerns please feel free to contact the dictating provider for clarification Report Dictated on Electronically Signed By: Dinesh Reed MD Electronically Signed Date/Time: 12/30/2024 6:45 PM EDT [facility] Radiology Study observation (narrative) [facility] [employer] CT Head WO contrastOrdered B y: Dinesh Reed on 12-30-2024 [employer] Work Phone: Comprehensive metabolic 1998 panelon 12-30-2024 Albumin [Mass/Vol] 2.6 g/dL Low 3.5 - 5.0 g/dL [facility] [employer] ALP [Catalytic activity/Vol] 54 U/L 40 - 150 U/L [employer] ALT [Catalytic activity/Vol] U/L NINF - 30 U/L [facility] [employer] Anion gap [Moles/Vol] 8 mmol/L 3 - 13 mmol/L [facility] AST [Catalytic activity/Vol] 22 U/L NINF - 34 U/L [facility] Bilirubin [Mass/Vol] 0.2 mg/dL NINF - 1.2 mg/dL [facility] Calcium [Mass/Vol] 8.5 mg/dL 8.4 - 10. 2 mg/dL [facility] Chloride [Moles/Vol] 103 mmol/L 98 - 10 7 mmol/L [facility] CO2 [Moles/Vol] 24 mmol/L 22 - 29 mmol/L [facility] Creatinine [Mass/Vol] 2.72 mg/dL High 0.57 - 1.11 mg/dL [facility] GFR/1.73 sq M.predicted (S/P/Bld) [Vol rate/Area] 19.8 mL/min Low - PINF [facility] Comment on above: Calculation based on the Chronic Kidney Disease Epidemiology Collaboration (CKD-EPI) equation refit without adjustment for race Glucose [Mass/Vol] 91 mg/dL 74 - 100 mg/dL [facility] Interpretation and review of laboratory results Abnormal [facility] Potassium [Moles/Vol] 4 mmol/L 3.5 - 5.1 mmol/L [facility] Comment on above: Plasma potassium bats[place] ues may be up to 0.5 mmol/L lower than serum values. Protein [Mass/Vol] 6.5 g/dL 6.4 - 8.3 g/dL [facility] Sodium [Moles/Vol] 135 mmol/L Low 136 - 145 mmol/L [facility] Urea nitrogen [Mass/Vol] 15 mg/dL 9 - 23 mg/dL [facility] ED Nursing Noteon 12-30-2024 ED Nursing Note Meal tray delivered at this time Normal [facility] ED Nursing Note Pt refused ABG from RT at this time. Shakir BLANCHARD notified. Trauma float and resident unavailable for US IV placement. Per charge master analyst, ok to send to floor if no IV placement ordered. Normal [facility] ED Nursing Note Two RN's attempted t o get IV access with no success. Pt will need US IV. Blood work obtained. Normal [facility] ED Nursing Note 1L of urine emptied from pt canister with purewick at this time. Normal [facility] ED Nursing Note Pt only urinated int o bedpan. Pt did not have a BM Normal [facility] ED Provider Noteon ED Provider Note Normal [facility] LAMOTRIGINE LEVEL (BKR QUEST )on 12-30-2024 QUEST LAMOTRIGINE 9.4 mcg/mL Normal 2.5-15.0 [facility] Comment on above: Result Comment: This test was developed and its analytical performancecharacteristics have been determined by [employer] [place], [place]. It hasnot been cleared or approved by the U.S. Food and DrugAdministration. This assay has been validated pursuantto the CLIA regulations and is used for clinicalpurposes.Test Performed by [facility]communication[facility],[employer] [facility],[address] [place], [place] [address]Wgebublbaljit Murrieta M.D., Ph.D., Director of [phone], CLIA [id number] Performed By: #### L [id number] ####Progression (AMDBEAKER)[id number] [place], [place] [facility] Laboratory - Chemistry and C hemistry - challengeOrdered By: Meera Tucker on 12-30-2024 Base excess Calc (Bld) [Moles/Vol] 3.4 mmol/L High -3.0 - 3.0 mmol/L [facility] CO2 (Bld) [Partial pressure] 31.9 mm[Hg] Low - PINF [facility] CO2 [Moles/Vol] 26.5 mmol/L 23.0 - 27.0 mmol/L [facility] HCO3 (Bld) [Moles/Vol] 25.5 mmol/L High 21.0 - 25.0 mmol/L [facility] Oxygen (Bld) [Partial pressure] 156.7 mm[Hg] High [facility] pH (Bld) 7.521 [pH] High 7.350 - 7.450 [facility] Laboratory - Chemistry and C hemistry - challengeon 12-30-2024 25-hydroxyvitamin D3 [Mass/Vol] 30 ng/mL 20 - 50 ng/mL [facility] TSH Qn 40.09 m[IU]/L High [facility] Laboratory - Drug toxicology on 12-30-2024 Valproate [Mass/Vol] 48 ug/mL Low 50 - 12 5 ug/mL [facility] No Panel InformationOrdered By: Meera Tucker on 12-30-2024 Amount Of Oxygen 21 [facility] Hgb, blood gas [facility] Comment on above: Unable to perform he moglobin due to microsample. Interpretation and review of laboratory results Abnormal [facility] Source Of Oxygen None (Room Air) [facility] No Panel Informationon 12-30 Interpretation and review of laboratory results Abnormal [facility] Toxicity is seen at concentrations >175 ug/mL [facility] THYROID STIMULATING HORMONEo n 12-30-2024 THYROID STIMULATING HORMONE 40.09 uIU/mL High 0.35-4.94 [facility] Comment on above: Performed By: #### L [id number], LAB24, [id number] ####Pin Setter: JULI JONES ([id number])[facility] ([facility])[address] [place] [address] TSH Qnon 12-30-2024 Interpretation and review of laboratory results Abnormal [facility] Urinalysis complete panel (U )Ordered By: Estela Whelan on 12-30-2024 Bacteria LM.HPF (Urine sed) [#/Area] Few Abnormal Negative /HPF [facility] Bilirubin Ql (U) Negative Negative mg/dL [facility] Clarity (U) Clear Clear [facility] Color (U) Colorless Lt. Yellow [facility] Epithelial cells.squamous LM.HPF (Urine sed) [#/Area] 0-2 [facility] Glucose Ql (U) Normal Normal (<70) mg/dL [facility] Hemoglobin Ql (U) Negative Negative mg/dL [facility] Hyaline casts Auto (Urine sed) [#/Area] Negative Negative /LPF [facility] Interpretation and review of laboratory results Abnormal [facility] Ketones (U) [Mass/Vol] Negative Negat jayne mg/dL [facility] Leukocyte esterase Test strip Ql (U) Negative Negative Devang/uL [facility] Nitrite Ql (U) Negative Negative [facility] pH (U) 7.0 [pH] 5.0 - 8.0 pH [facility] Protein (U) [Mass/Vol] 20 mg/dL Abnormal Negative [facility] RBC LM.HPF (Urine sed) [#/Area] 0-2 [facility] Specific gravity (U) [Rel density] 1.005 1.005 - 1.030 [facility] Urobilinogen (U) [Mass/Vol] Normal Normal (0-1) mg/dL [facility] WBC LM.HPF (Urine sed) [#/Area] 0-2 [facility] A specimen with <=10 WBC is not consistent with inflammation. This specimen will not reflex to a urine culture. [facility] VALPROIC ACID TOTALon 2024 VALPROIC ACID 48 ug/mL Low 50-125 [facility] Comment on above: Result Comment: HARRIET [place] COMMENTS:Toxicity is seen at concentrations >175 ug/mL Performed By: #### L [id number], LAB24, [id number] ####Pin Setter: JULI JONES ([id number])[facility] ([facility])[address] [place] [address] VITAMIN D DEFICIENCY SCREENI NG (VIT D 25)on 12-30-2024 VIT D 25-OH, TOTAL 30 ng/mL Normal See comment [facility] Comment on above: Result Comment: HARRIET [place] COMMENTS:Target concentration: 30 - 40 ng/mL; toxicity seen at concentrations >100 ng/mLLess than 20 ng/mL: Indicative of Vit D deficiencyTest performed by [employer], measuring Total Vitamin D, not individual fractions. Performed By: #### L AB535, LAB24, [id number] ####Pin Setter: JULI JONES ([id number])[facility] ([facility])[address] [place] [address] XR Knee - left 4 Viewson Severe tricompartmen scott osteoarthritis of the knee. Report Dictated on Electronically Signed By: Harvey Rayo MD Electronically Signed Date/Time: 12/30/2024 12:05 PM [facility] Patient Name: JESSY WEN : 1965 Exam Date/Time: 12/30/2024 11:55 Procedure: XR KNEE 4+ VIEWS LEFT Ordering Provider: DUENAS YASMIN Reason For Exam: knee pain LEFT KNEE CLINICAL INDICATION: Pain AP, lateral, tunnel, and patellar plain film views of the left knee were obtained. COMPARISON: 11/03/2015 FINDINGS: There is no evidence for fracture or subluxation. Significant medial compartment predominant osteoarthritic changes are noted in the knee with osteophytosis, joint space obliteration, subchondral sclerosis, and subchondral cystic formation. Increased density is noted in the suprapatellar soft tissues, compatible with a joint effusion. No bone lesion is identified. There is no other soft tissue abnormality. [facility] Harvey Rayo MD - 12/30/2024 [facility] Name[facility] 1965 [id number] Exam Date/Time: 12/30/2024 11:55 Procedure: XR KNEE 4+ VIEWS LEFT Ordering Provider: DUENAS YASMIN Reason For Exam: knee pain LEFT KNEE CLINICAL INDICATION: Pain AP, lateral, tunnel, and patellar plain film views of the left knee were obtained. COMPARISON: 11/03/2015 FINDINGS: There is no evidence for fracture or subluxation. Significant medial compartment predominant osteoarthritic changes are noted in the knee with osteophytosis, joint space obliteration, subchondral sclerosis, and subchondral cystic formation. Increased density is noted in the suprapatellar soft tissues, compatible with a joint effusion. No bone lesion is identified. There is no other soft tissue abnormality. IMPRESSION: Severe tricompartmental osteoarthritis of the knee. Report Dictated on Electronically Signed By: Harvey Rayo MD Electronically Signed Date/Time: 12/30/2024 12:05 PM EDT [facility] Radiology Study observation (narrative) [facility] [employer] XR Knee - left 4 ViewsOrdere d By: Harvey Rayo on 12-30-2024 [facility] [employer] Work Phone: ED Nursing Noteon 12-29-2024 ED Nursing Note Pt. Arrived to ED [facility] with complaint of EMS reported fall at facility with bumped head. Pt. Stated no changes since ED visit during previous shift with departure on 12/29/2024. Normal [facility] ED Nursing Note [facility] arrived for tra nsport. Hand off report given to medics. Normal [facility] ED Nursing Note Notified physician o f patients skin concerns on the back of her left thigh. Media collected. Normal [facility] ED Nursing Note Normal [facility] ED Nursing Note Normal [facility] ED Nursing Note Normal [facility] ED Provider Noteon ED Provider Note Normal [facility] XR Foot - left 2 Viewson Possible fracture of the fourth proximal metatarsal. Severe hallux valgus deformity and soft tissue swelling. Report Dictated on Electronically Signed By: Dario Torres MD Electronically Signed Date/Time: 12/29/2024 1:28 AM EDT [facility] Patient Name: JESSY WEN : 1965 Exam Date/Time: 12/29/2024 00:11 Procedure: XR FOOT 1-2 VIEWS LEFT Ordering Provider: PATTON NISHIT Reason For Exam: left foot pain LEFT FOOT: CLINICAL INDICATION: left foot pain. TECHNIQUE: AP, Lat COMPARISON: 08/01/2024 FINDINGS: Flexion deformity of the toes is limited due to flexed positioning. Lucent oblique region within the proximal metaphysis of the fourth metatarsal may be a fracture site. There is no other fracture or dislocation Marked spurring is noted about the head of the first metatarsal and base of the first proximal phalanx with lateral angulation of the metatarsophalangeal joint, compatible with hallux valgus deformity. No bone lesion is identified. Diffuse soft tissue swelling is noted. [facility] Dario Torres MD - 12/29/2024 Patient Name: JESSY MCKEON : 1965 Exam Date/Time: 12/29/2024 00:11 Procedure: XR FOOT 1-2 VIEWS LEFT Ordering Provider: PATTON NISHIT Reason For Exam: left foot pain LEFT FOOT: CLINICAL INDICATION: left foot pain. TECHNIQUE: AP, Lat COMPARISON: 08/01/2024 FINDINGS: Flexion deformity of the toes is limited due to flexed positioning. Lucent oblique region within the proximal metaphysis of the fourth metatarsal may be a fracture site. There is no other fracture or dislocation Marked spurring is noted about the head of the first metatarsal and base of the first proximal phalanx with lateral angulation of the metatarsophalangeal joint, compatible with hallux valgus deformity. No bone lesion is identified. Diffuse soft tissue swelling is noted. IMPRESSION: Possible fracture of the fourth proximal metatarsal. Severe hallux valgus deformity and soft tissue swelling. 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. Normal [facility] ED Nursing Note Attempted to call [facility] 3 times with no answer to give information about patients discharge. Normal [facility] ED Nursing Note Splint applied by provider. Normal [facility] ED Nursing Note Pt to ED after a fal l, patient was trying to get to her chair and reports falling twice, does state she hit her head, and is complaining of left hand pain, denies LOC. PT was also recently dx w/ UTI and is on amoxicillin Normal [facility] ED Provider Noteon ED Provider Note Normal [facility] ED Provider Note Normal [facility] No Panel Informationon 12-28 1. No acute osseous abnormality. 2. Postsurgical and degenerative change. Report Dictated on Electronically Signed By: Daniel Field MD Electronically Signed Date/Time: 12/28/2024 10:05 PM EDT [facility] Arslan Kirkland MD 12/28/2024 5:59 AM Splint Application Performed by: Arslan Kirkland MD Authorized by: Arslan Kirkland MD Consent: Consent obtained: Verbal Consent given by: Patient [place] protocol: Patient identity confirmed: Verbally with patient Pre-procedure details: Distal neurologic exam: Normal Distal perfusion: distal pulses strong and brisk capillary refill Procedure details: Location: Hand Hand location: L hand Splint type: Ulnar gutter Supplies: Fiberglass Attestation: Splint applied and adjusted personally by me Post-procedure details: Distal neurologic exam: Normal Distal perfusion: distal pulses strong and brisk capillary refill Procedure completion: Tolerated well, no immediate complications Post-procedure imaging: not applicable [facility]integro No Panel InformationOrdered By: Daniel Field on 12-28-2024 [facility] Work Phone: XR Femur - left 2 Viewson Patient Name: JESSY WEN : 1965 Exam Date/Time: 12/28/2024 21:11 Procedure: XR FEMUR 2+ VW LEFT Ordering Provider: PATTON NISHIT Reason For Exam: Pain left thigh PELVIS SINGLE VIEW. LEFT FEMUR 2 VIEWS CLINICAL INDICATION: trauma, pain TECHNIQUE: Single, AP view of the pelvis. 2 views of the left femur. COMPARISON: None. FINDINGS: No apparent fracture or dislocation. Postsurgical change and fixation hardware noted in the lumbosacral spine. Mild degenerative change in the bilateral hip joints. More pronounced degenerative change in the left knee joint. Soft tissues grossly unremarkable. [facility] Daniel Field MD - 12/28/2024 Patient Name: JESSY MCKEON : 1965 Exam Date/Time: 12/28/2024 21:11 Procedure: XR FEMUR 2+ VW LEFT Ordering Provider: PATTON NISHIT Reason For Exam: Pain left thigh PELVIS SINGLE VIEW. LEFT FEMUR 2 VIEWS CLINICAL INDICATION: trauma, pain TECHNIQUE: Single, AP view of the pelvis. 2 views of the left femur. COMPARISON: None. FINDINGS: No apparent fracture or dislocation. Postsurgical change and fixation hardware noted in the lumbosacral spine. Mild degenerative change in the bilateral hip joints. More pronounced degenerative change in the left knee joint. Soft tissues grossly unremarkable. IMPRESSION: 1. No acute osseous abnormality. 2. Postsurgical and degenerative change. Report Dictated on Electronically Signed By: Daniel Field MD Electronically Signed Date/Time: 12/28/2024 10:05 PM EDT [facility] Radiology Study observation (narrative) [facility] XR Hand - left 3 Viewson Fracture of the head of the fifth metacarpal. Osteoarthritis. Report Dictated on Electronically Signed By: Dario Torres MD Electronically Signed Date/Time: 12/28/2024 6:11 AM EDT [facility] Patient Name: JESSY WEN : 1965 Exam Date/Time: 12/28/2024 05:15 Procedure: XR HAND 3+ VIEWS LEFT Ordering Provider: KIRKLAND AUSTIN Reason For Exam: fall L 5th MC bruising/swelling and pain LEFT HAND: CLINICAL INDICATION: fall L 5th MC bruising/swelling and pain. TECHNIQUE: PA, Lat, and oblique COMPARISON: None. FINDINGS: Nondisplaced fracture of the head of the fifth metacarpal is noted. There is no other fracture or dislocation. Spurring and narrowing is noted about the DIP and PIP joints along with the first carpometacarpal joint. There is also narrowing of the distal radiocarpal joint. Osteopenia is noted. No bone lesion is identified. There is soft tissue swelling. [facility] Dario Torres MD - 12/28/2024 Patient Name: JESSY MCKEON : 1965 Exam Date/Time: 12/28/2024 05:15 Procedure: XR HAND 3+ VIEWS LEFT Ordering Provider: KIRKLAND AUSTIN Reason For Exam: fall L 5th MC bruising/swelling and pain LEFT HAND: CLINICAL INDICATION: fall L 5th MC bruising/swelling and pain. TECHNIQUE: PA, Lat, and oblique COMPARISON: None. FINDINGS: Nondisplaced fracture of the head of the fifth metacarpal is noted. There is no other fracture or dislocation. Spurring and narrowing is noted about the DIP and PIP joints along with the first carpometacarpal joint. There is also narrowing of the distal radiocarpal joint. Osteopenia is noted. No bone lesion is identified. There is soft tissue swelling. IMPRESSION: Fracture of the head of the fifth metacarpal. Osteoarthritis. Report Dictated on Electronically Signed By: Dario Torres MD Electronically Signed Date/Time: 12/28/2024 6:11 AM EDT [facility] Radiology Study observation (narrative) [facility] XR Hand - left 3 ViewsOrdere d By: Dario Torres on 12-28-2024 [facility] Work Phone: XR Pelvis 1 or 2 Viewson Patient Name: JESSY WEN : 1965 Exam Date/Time: 12/28/2024 21:11 Procedure: XR PELVIS 1-2 VIEWS Ordering Provider: PATTON NISHIT Reason For Exam: trauma PELVIS SINGLE VIEW. LEFT FEMUR 2 VIEWS CLINICAL INDICATION: trauma, pain TECHNIQUE: Single, AP view of the pelvis. 2 views of the left femur. COMPARISON: None. FINDINGS: No apparent fracture or dislocation. Postsurgical change and fixation hardware noted in the lumbosacral spine. Mild degenerative change in the bilateral hip joints. More pronounced degenerative change in the left knee joint. Soft tissues grossly unremarkable. [facility] Daniel Field MD - 12/28/2024 Patient Name: JESSY MCKEON : 1965 Exam Date/Time: 12/28/2024 21:11 Procedure: XR PELVIS 1-2 VIEWS Ordering Provider: PATTON NISHIT Reason For Exam: trauma PELVIS SINGLE VIEW. LEFT FEMUR 2 VIEWS CLINICAL INDICATION: trauma, pain TECHNIQUE: Single, AP view of the pelvis. 2 views of the left femur. COMPARISON: None. FINDINGS: No apparent fracture or dislocation. Postsurgical change and fixation hardware noted in the lumbosacral spine. Mild degenerative change in the bilateral hip joints. More pronounced degenerative change in the left knee joint. Soft tissues grossly unremarkable. IMPRESSION: 1. No acute osseous abnormality. 2. Postsurgical and degenerative change. Report Dictated on Electronically Signed By: Daniel Field MD Electronically Signed Date/Time: 12/28/2024 10:05 PM EDT [facility] Radiology Study observation (narrative) [facility] XR Tibia and Fibula - left 2 Viewson 12-28-2024 1. No acute osseous abnormality. Report Dictated on Electronically Signed By: Daniel Field MD Electronically Signed Date/Time: 12/28/2024 10:06 PM EDT [facility] SYSTEM Patient Name: JESSY WEN : 1965 Exam Date/Time: 12/28/2024 21:12 Procedure: XR TIBIA FIBULA 2 VIEWS LEFT Ordering Provider: PATTON NISHIT Reason For Exam: left leg pain LEFT TIBIA AND FIBULA 2 VIEWS CLINICAL INDICATION: left leg pain TECHNIQUE: 2 views of the left tibia and fibula. COMPARISON: None. FINDINGS: No acute fracture or dislocation. Soft tissues grossly unremarkable. [facility] Daniel Field MD - 12/28/2024 Patient Name: JESSY MCKEON : 1965 Exam Date/Time: 12/28/2024 21:12 Procedure: XR TIBIA FIBULA 2 VIEWS LEFT Ordering Provider: PATTON NISHIT Reason For Exam: left leg pain LEFT TIBIA AND FIBULA 2 VIEWS CLINICAL INDICATION: left leg pain TECHNIQUE: 2 views of the left tibia and fibula. COMPARISON: None. FINDINGS: No acute fracture or dislocation. Soft tissues grossly unremarkable. IMPRESSION: 1. No acute osseous abnormality. Report Dictated on Electronically Signed By: Daniel Field MD Electronically Signed Date/Time: 12/28/2024 10:06 PM EDT [facility] Radiology Study observation (narrative) [facility] 36on 12-25-2024 36 Normal [facility] COMPLETE URINALYSIS WITH REF ANN TO CULTURE12-25-2024 AMORPHOUS URATES (#/HPF) IN URINE Few Abnormal Negative [facility] Comment on above: Performed By: #### L [id number] ####Pin Setter: JULI JONES ([id number])[facility] (SWRLAB)[address] [place] [address]#### [id number] ####Pin Setter: JULI JONES ([id number])[facility] (SACLAB)[address] [place] [address] BACTERIA (#/HPF) IN URINE Moderate Abnormal Negative [facility] Comment on above: Performed By: #### L [id number] ####Pin Setter: JULI JONES ([id number])[facility] [place] [address]#### [id number] ####Pin Setter: JULI JONES ([id number])[facility] ([facility])[address] [place] [address] BILIRUBIN, TOTAL PRESENCE IN URINE Negative Normal Negative [facility] Comment on above: Performed By: #### L [id number] ####Pin Setter: JULI JONES ([id number])[facility] (SWRL[facility])[address] [place] [address]#### [id number] ####Pin Setter: JULI JONES ([id number])[facility] ([facility])[address] [place] [address] Clarity (U) Turbid Abnormal Clear [facility] Comment on above: Performed By: #### L [id number] ####Pin Setter: JULI JONES ([id number])[facility] (SWRLAB)[address] [place] [address] [place]#### [id number] ####Pin Setter: JULI JONES ([id number])[facility] ([facility])[address] [place] [address] Color (U) Light Yellow Normal Lt. Yellow [facility] Comment on above: Performed By: #### L [id number] ####Pin Setter: JULI JONES ([id number])[facility] [place] [address] [place]#### [id number] ####Pin Setter: JULI JONES ([id number])[facility] ([facility])[address] [place] [address] GLUCOSE (MG/DL) IN URINE Normal Normal Normal (<70) [facility] Comment on above: Performed By: #### L [id number] ####Pin Setter: JULI JONES ([id number])[facility] [place] [address]#### [id number] ####Pin Setter: JULI JONES ([id number])[facility] ([facility])[address] [place] [address] HEMOGLOBIN PRESENCE IN URINE 0.1 mg/dL Abnormal Negative [facility] Comment on above: Performed By: #### L [id number] ####Pin Setter: JULI JONES ([id number])[facility] [place] [address]#### [id number] ####Pin Setter: JULI JONES ([id number])[facility] ([facility])[address] [place] [address] Ketones Ql (U) Negative Normal Negative [facility] Comment on above: Performed By: #### L [id number] ####Pin Setter: JULI JONES ([id number])[facility] (SWRL[facility])[address] [place] [address] [place]#### [id number] ####Pin Setter: JULI JONES ([id number])[facility] ([facility])[address] [place] [address] LEUKOCYTE ESTERASE PRESENCE IN URINE BY TEST STRIP 500 Devang/uL Abnormal Negative [facility] Comment on above: Performed By: #### L [id number] ####Pin Setter: JULI JONES ([id number])[facility] ([facility])[address] [place] [address] [place]#### [id number] ####Pin Setter: JULI JONES ([id number])[facility] ([facility])[address] [place] [address] NITRITE PRESENCE IN URINE Negative Normal Negative [facility] Comment on above: Performed By: #### L [id number] ####Pin Setter: JULI JONES ([id number])[facility] ([facility])[address] [place] [address]#### [id number] ####Pin Setter: JULI JONES ([id number])[facility] ([facility] [place] [address] NON-SQUAMOUS EPITHELIAL (#/HPF) IN URINE 0-2 Abnormal Negative [facility] Comment on above: Performed By: #### L [id number] ####Pin Setter: JULI JONES ([id number])[facility] ([facility])[address] [place] [address] [place]#### [id number] ####Pin Setter: JULI JONES ([id number])[facility] ([facility])[address] [place] [address] pH (U) 6.5 [pH] Normal 5.0-8.0 [facility] Comment on above: Performed By: #### L [id number] ####Pin Setter: JULI JONES ([id number])[facility] ([facility])[address] [place] [address] [place]#### [id number] ####Pin Setter: JULI JONES ([id number])[facility] ([facility])[address] [place] [address] Protein (U) [Mass/Vol] 50 mg/dL Abnormal Negative [facility] Comment on above: Performed By: #### L [id number] ####Pin Setter: JULI JONES ([id number])[facility] (SWRLAB)[address] [place] [address]#### [id number] ####Pin Setter: JULI JONES ([id number])[facility] [place] [address] RBC (#/HPF) IN URINE SEDIMENT 11-25 Abnormal 0-2 [facility] Comment on above: Performed By: #### L [id number] ####Pin Setter: JULI JONES ([id number])[facility] ([facility] [place] [address]#### [id number] ####Pin Setter: JULI JONES ([id number])[facility] ([facility] [place] [address] Specific gravity (U) [Rel density] <1.005 Low 1.005-1.03 0 [facility] Comment on above: Result Comment: HARRIET Mayfield COMMENTS:A specimen with <=10 WBC is not consistent with inflammation. This specimen will not reflex to a urine culture.This specimen has been reflexed to urine culture. Performed By: #### L [id number] ####Pin Setter: JULI JONES ([id number])[facility] ([facility])[address] [place] [address]#### [id number] ####Pin Setter: JULI JONES ([id number])[facility] ([facility])[address] [place] [address] SQUAMOUS EPITHELIAL CELLS (#/HPF) IN URINE SEDIMENT 6-10 Abnormal 3-5 [facility] Comment on above: Performed By: #### L [id number] ####Pin Setter: JULI JONES ([id number])[facility])[address] [place] [address] [place]#### [id number] ####Pin Setter: JULI JONES ([id number])[facility] ([facility])[address] [place] [address] UROBILINOGEN (MG/DL) IN URINE Normal Normal Normal (0-1) [facility] Comment on above: Performed By: #### L [id number] ####Pin Setter: JULI JONES ([id number])[facility] ([facility])[address] [place] [address]#### [id number] ####Pin Setter: JULI JONES ([id number])[facility] ([facility])[address] [place] [address] VOLUME OF URINE 8-12 mL Normal [facility] Comment on above: Performed By: #### L [id number] ####Pin Setter: JULI JONES ([id number])[facility] ([facility])[address] [place] [address]#### [id number] ####Pin Setter: JULI JONES ([id number])[facility] ([facility])[address] [place] [address] WBC (LEUKOCYTE) (#/HPF) IN URINE SEDIMENT 26-50 Abnormal 0-5 [facility] Comment on above: Performed By: #### L [id number] ####Pin Setter: JULI JONES ([id number])[facility])[address] [place] [address]#### [id number] ####Pin Setter: JULI JONES ([id number])[facility] ([facility])[address] [place] [address] ED Nursing Noteon 12-25-2024 ED Nursing Note [place] [facility] [place]. Normal [facility] ED Nursing Note Patient ambulated in [place] with rollator. Physician aware. Patient requesting to go back home by squad. Normal [facility] ED Nursing Note BSC provided to amber ent for bowel movement. Normal [facility] ED Nursing Note Repositioned patient Normal [facility] ED Nursing Note This nurse to room. Patient seen sleeping in bed. Patient states she is unable to give a urine at this time. Bed gale removed. Physician informed. Normal [facility] ED Nursing Note Patient repositioned and placed on bed gale. Normal [facility] ED Nursing Note Patient arrived via squad to room 7 . Patient complains of painful rash in groin area. Pain 8/10. Patient has excoriation of skin on lower abdomen and top of thigh area. Normal [facility] ED Provider Noteon ED Provider Note Normal [facility] Laboratory - Chemistry and C hemistry - challengeon 12-25-2024 Glucose [Mass/Vol] 127 mg/dL High 70 - 100 mg/dL [facility] No Panel Informationon 12-25 Interpretation and review of laboratory results Abnormal [facility] by: [facility], [address] [place] [address] CLIA ID: [id number] [facility] URINE CULTUREon 12-25-2024 Bacteria identified Cx Nom (U) Normal [facility] Comment on above: Performed By: #### L [id number] ####Pin Setter: JULI JONES ([id number])[facility] ([facility])[address] [place] [address]#### [id number] ####Pin Setter: JULI JONES ([id number])[facility] ([facility])[address] [place] [address] Urinalysis complete panel (U )Ordered By: Gabriela Acosta on 12-25-2024 Amorphous Urates, Urine Few Abnormal Negative /HPF [facility] Bacteria LM.HPF (Urine sed) [#/Area] Moderate Abnormal Negative /HPF [facility] Bilirubin Ql (U) Negative Negative mg/dL [facility] Clarity (U) Turbid Abnormal Clear [facility] Color (U) Light Yellow Lt. Yellow [facility] Epithelial cells.squamous LM.HPF (Urine sed) [#/Area] 6-10 Abnormal [facility] Glucose Ql (U) Normal Normal (<70) mg/dL [facility] Hemoglobin Ql (U) 0.1 mg/dL Abnormal Negative [facility] Interpretation and review of laboratory results Abnormal [facility] Ketones (U) [Mass/Vol] Negative Negat jayne mg/dL [facility] Leukocyte esterase Test strip Ql (U) 500 Abnormal Negative Devang/uL [facility] Nitrite Ql (U) Negative Negative [facility] Non-Squamous Epithalial Cells, Urine 0-2 Abnormal Negative /HPF [facility] pH (U) 6.5 [pH] 5.0 - 8.0 pH [facility] Protein (U) [Mass/Vol] 50 mg/dL Abnormal Negative [facility] RBC LM.HPF (Urine sed) [#/Area] 11-25 Abnormal [facility] Specific gravity (U) [Rel density] Low 1.005 - 1.030 [facility] Urobilinogen (U) [Mass/Vol] Normal Normal (0-1) mg/dL [facility] Volume, Urine 8-12 mL [facility] WBC LM.HPF (Urine sed) [#/Area] 26-50 Abnormal [facility] A specimen with <=10 WBC is not consistent with inflammation. This specimen will not reflex to a urine culture. This specimen has been reflexed to urine culture. [facility] 12-20-2024 36 [place] [id number] 36 Pat aware. Will inf orm patient. Stated she does not feel patient needs wound care at this time [address] 12-14-[address] 12-12-2024 36 Attempted to call aaron wolff to schedule appointment. cannot accept any more messages - called to schedule Hospital follow up [place] [address] Notified home health of verbal order. [place] [address] Mendel nunez, she said okay for verbal order to be given for Triad cream. Apply twice daily, to affected area or per their recommendation. [place] [address] Nurse said yes, okay for a verbal order for the Triad Cream, I will call her back to let her know okay if you are agreeable [facility] 36 Normal [facility] 36 Normal [facility] 36on 12-05-2024 36 Kathy with Rusty mcpherson notified of verbal order Normal [facility] 36 Normal [facility] 36on 11-29-2024 36 Pt has appt 12/10/24 Normal [facility] 36on 11-21-2024 36 Pt's mychart has nev er been logged into. Normal [facility] 36on 11-20-2024 36 Last appt 06/18/24 No future appts Normal [facility] 36 Dmitriy aware Normal [facility] 36 Dmitriy aware Normal [facility] 36 Number listed is OOS Normal [facility] 36on 11-19-2024 36 Ok for verbal order see other TE Normal [facility] 36 That is fine for nita bal order. Patient needs a face to face with me if needed ok to do virutallu Normal [facility] 36 VM is not taking mes sages at this time - called to schedule patient for ER follow [facility] appointment [facility] Center Progress Noteon 11-19-2024 Progress Note Normal [facility] 36on 11-15-2024 36 VM is not taking mes sages at this time - called to schedule patient for ER follow up appointment [facility] 36 Normal [facility] AMMONIAon 11-15-2024 Ammonia (P) [Moles/Vol] 38 umol/L Normal 18-72 [facility] Comment on above: Performed By: #### L [id number] ####Pin Setter: JULI JONES ([id number])[facility] (SWRLAB)[address] [place] [address] CBC W Auto Differential pane l (Bld)on 11-15-2024 Basophils (Bld) [#/Vol] 0 10*3/uL 0.0 - 0.2 10*3/uL [facility] Basophils/100 WBC (Bld) 0.5 % 0.0 - 2.0 % [facility] Eosinophils (Bld) [#/Vol] 0.3 10*3/uL 0.0 - 0.5 10*3/uL [facility] Eosinophils/100 WBC (Bld) 4.4 % 0.0 - 6.0 % [facility] Erythrocyte distribution width (RBC) [Ratio] 13.2 % 11.5 - 15.0 % [facility] Hematocrit (Bld) [Volume fraction] 24.1 % Low 35.0 - 47.0 % [facility] Hemoglobin (Bld) [Mass/Vol] 8 g/dL Low 11.7 - 16.0 g/dL [facility] [employer] Immature granulocytes (Bld) [#/Vol] 0 10*3/uL NINF - 0.1 10*3/uL [facility] Immature granulocytes/100 WBC (Bld) 0.5 % 0.0 - 2.0 % [facility] Interpretation and review of laboratory results Abnormal [facility] Lymphocytes (Bld) [#/Vol] 1.8 10*3/uL 1.0 - 4.3 10*3/uL [facility] Lymphocytes/100 WBC (Bld) 26.7 % 15.0 - 45.0 % [facility] MCH (RBC) [Entitic mass] 32.3 pg 26.0 - 34.0 pg [facility] MCHC (RBC) [Mass/Vol] 33.2 % 30.5 - 36.0 % [facility] MCV (RBC) [Entitic vol] 97.2 fL 77.0 - 99.0 fL [facility] Monocytes (Bld) [#/Vol] 0.9 10*3/uL 0.0 - 0.9 10*3/uL [facility] Monocytes/100 WBC (Bld) 14 % High 5.0 - 13.0 % [facility] Neutrophils (Bld) [#/Vol] 3.5 10*3/uL 1.8 - 7.5 10*3/uL [facility] Neutrophils/100 WBC (Bld) 53.9 % 38.0 - 82.0 % [facility] Nucleated RBC/100 WBC (Bld) [Ratio] 0 % [facility] Platelet mean volume (Bld) [Entitic vol] 9.1 fL 9.0 - 12.7 fL [facility] Comment on above: MPV is a calculated measurement using platelet volume ratio Platelets (Bld) [#/Vol] 185 10*3/uL 140 - 440 10*3/uL [facility] RBC (Bld) [#/Vol] 2.48 10*6/uL Low 3.80 - 5.20 10*6/uL [facility] WBC (Bld) [#/Vol] 6.6 10*3/uL 3.6 - 10.7 10*3/uL [facility] CBC WITH AUTO DIFFERENTIALon 11-15-2024 Basophils (Bld) [#/Vol] 0.0 10*3/uL Normal 0.0-0.2 [facility] Comment on above: Performed By: #### L [id number] ####Pin Setter: JULI JONES ([id number])[facility] (SWRLAB)[address] [place] [address] Basophils/100 WBC (Bld) 0.5 % Normal 0.0-2.0 [facility] Comment on above: Performed By: #### L [id number] ####Pin Setter: JULI JONES ([id number])[facility] (SWRLAB)[address] [place] [address] Eosinophils (Bld) [#/Vol] 0.3 10*3/uL Normal 0.0-0.5 [facility] Comment on above: Performed By: #### L [id number] ####Pin Setter: JULI JONES ([id number])[facility] (SWRLAB)[address] [place] [address] [place] Eosinophils/100 WBC (Bld) 4.4 % Normal 0.0-6.0 [facility] Comment on above: Performed By: #### L [id number] ####Pin Setter: JULI JONES ([id number])[facility] (SWRLAB)[address] [place] [address] Erythrocyte distribution width (RBC) [Ratio] 13.2 % Normal 11.5-15.0 [facility] Comment on above: Performed By: #### L [id number] ####Pin Setter: JULI JONES ([id number])[facility] (SWRLAB)[address] [place] [address] Hematocrit (Bld) [Volume fraction] 24.1 % Low 35.0-47.0 [facility] Comment on above: Performed By: #### L [id number] ####Pin Setter: JULI JONES ([id number])[facility]ITALJ[facility]IG[facility] (SWRLAB)[address] [place] [address] Hemoglobin (Bld) [Mass/Vol] 8.0 g/dL Low 11.7-16.0 [facility] Comment on above: Performed By: #### L [id number] ####Pin Setter: JULI JONES ([id number])[facility]ITAL[facility] (SWRLAB)[address] [place] [address] IMMATURE GRANS % 0.5 % Normal 0.0-2.0 [facility] Comment on above: Performed By: #### L [id number] ####Pin Setter: JULI JONES ([id number])[facility]ITAL[facility]IG[facility] (SWRLAB)[address] [place] [address] IMMATURE GRANS ABSOLUTE 0.0 10*3/uL Normal <0.1 [facility] Comment on above: Performed By: #### L [id number] ####Pin Setter: JULI JONES ([id number])[facility]ITAL[facility] (SWRLAB)[address] [place] [address] Lymphocytes (Bld) [#/Vol] 1.8 10*3/uL Normal 1.0-4.3 [facility] Comment on above: Performed By: #### L [id number] ####Pin Setter: JULI JONES ([id number])[facility]ITALJ[facility]IGG[facility] (SWRLAB)[address] [place] [address] [place] Lymphocytes/100 WBC (Bld) 26.7 % Normal 15.0-45.0 [facility] Comment on above: Performed By: #### L [id number] ####Pin Setter: JULI JONES ([id number])[place] [facility] (SWRLAB)[address] MCH (RBC) [Entitic mass] 32.3 pg Normal 26.0-34.0 [facility] Comment on above: Performed By: #### L [id number] ####Pin Setter: JULI JONES ([id number])[facility]ITALJ[facility] (SWRLAB)[address] MCHC 33.2 % Normal 30.5-36.0 [facility] Comment on above: Performed By: #### L [id number] ####Pin Setter: JULI JONES ([id number])[facility]ITALJ[facility]IG[facility] (SWRLAB)[address] [place] [address] MCV (RBC) [Entitic vol] 97.2 fL Normal 77.0-99.0 [facility] Comment on above: Performed By: #### L [id number] ####Pin Setter: JULI JONES ([id number])[facility]ITALJ[facility] (SWRLAB)[address] [place] [address] Monocytes (Bld) [#/Vol] 0.9 10*3/uL Normal 0.0-0.9 [facility] Comment on above: Performed By: #### L [id number] ####Pin Setter: JULI JONES ([id number])[facility]ITALJ[facility] (SWRLAB)[address] [place] [address] [place] Monocytes/100 WBC (Bld) 14.0 % High 5.0-13.0 [facility] Comment on above: Performed By: #### L [id number] ####Pin Setter: JULI JONES ([id number])[facility]ITALJ[facility] (SWRLAB)[address] [place] [address] NEUTROPHILS ABSOLUTE 3.5 10*3/uL Normal 1.8-7.5 [facility] Comment on above: Performed By: #### L [id number] ####Pin Setter: JULI JONES ([id number])[place] [facility] (SWRLAB)[address] [place] [address] [place] Neutrophils/100 WBC (Bld) 53.9 % Normal 38.0-82.0 [facility] Comment on above: Performed By: #### L [id number] ####Pin Setter: JULI JONES ([id number])[place] [facility] (SWRLAB)[address] [place] [address] NRBC 0.0 /100 WBCs Normal 0.0-2.0 [facility] Comment on above: Performed By: #### L [id number] ####Pin Setter: JULI JONES ([id number])[facility]ITALJ[facility]anny [facility] (SWRLAB)[address] [place] [address] Platelet mean volume (Bld) [Entitic vol] 9.1 fL Normal 9.0-12.7 [facility] Comment on above: Result Comment: MPV is a calculated measurement using platelet volume ratio Performed By: #### L [id number] ####Pin Setter: JULI JONES ([id number])[facility]ITALJohanny [facility] (SWRLAB)[address] [place] [address] [place] Platelets (Bld) [#/Vol] 185 10*3/uL Normal 140-440 [facility] Comment on above: Performed By: #### L [id number] ####Pin Setter: JULI JONES ([id number])[facility]ITALJohanny [facility] (SWRLAB)[address] [place] [address] [place] RBC (Bld) [#/Vol] 2.48 10*6/uL Low 3.80-5.20 [facility] Comment on above: Performed By: #### L [id number] ####Pin Setter: JULI JONES ([id number])[place] [facility] (SWRLAB)[address] [place] [address] [place] WBC (Bld) [#/Vol] 6.6 10*3/uL Normal 3.6-10.7 [facility] Comment on above: Performed By: #### L [id number] ####Pin Setter: JULI JONES ([id number])[facility]ITALJohanny [facility] (SWRLAB)[address] COMPREHENSIVE METABOLIC PANE Nestor 11-15-2024 Albumin [Mass/Vol] 2.8 g/dL Low 3.5-5.0 [facility] Comment on above: Performed By: #### L AB17, [id number] ####Pin Setter: JULI JONES ([id number])[facility]ITALJohanny [facility] (SWRLAB)[address] ALP [Catalytic activity/Vol] 49 U/L Normal 40-150 [facility] Comment on above: Performed By: #### L AB17, [id number] ####Pin Setter: JULI JONES ([id number])[facility]ITALJohanny [facility] (SWRLAB)[address] [place] [address] [place] ALT [Catalytic activity/Vol] U/L Normal <30 [facility] Comment on above: Performed By: #### L AB17, [id number] ####Pin Setter: JULI JONES ([id number])[facility]ITALJohanny [facility] (SWRLAB)[address] Anion gap [Moles/Vol] 9 mmol/L Normal 3-13 [facility] Comment on above: Performed By: #### L AB17, [id number] ####Pin Setter: JULI JONES ([id number])[facility]ITALJohanny [facility] (SWRLAB)[address] [place] [address] [place] AST [Catalytic activity/Vol] 23 U/L Normal <34 [facility] Comment on above: Performed By: #### L AB17, [id number] ####Pin Setter: JULI JONES ([id number])[facility]ITALJ[facility]anny [facility] (SWRLAB)[address] [place] [address] [place] Bilirubin [Mass/Vol] 0.3 mg/dL Normal <1.2 [facility] Comment on above: Performed By: #### L AB17, [id number] ####Pin Setter: JULI JONES ([id number])[facility]ITALJ[facility]anny [facility] (SWRLAB)[address] Calcium [Mass/Vol] 8.5 mg/dL Normal 8.4-10.2 [facility] Comment on above: Performed By: #### L AB17, [id number] ####Pin Setter: JULI JONES ([id number])[facility]ITALJohanny MATOSROSALIE RITTMAN (SWRLAB)[address] Chloride [Moles/Vol] 95 mmol/L Low 98-107 [facility] Comment on above: Performed By: #### L AB17, [id number] ####Pin Setter: JULI JONES ([id number])[facility]ITALA [facility] (SWRLAB)[address] CO2 [Moles/Vol] 25 mmol/L Normal 22-29 [facility] Comment on above: Performed By: #### L AB17, [id number] ####Pin Setter: JULI JONES ([id number])[facility]ITALJ[facility]anny [facility] (SWRLAB)[address] Creatinine [Mass/Vol] 2.61 mg/dL High 0.57-1.11 [facility] Comment on above: Performed By: #### L AB17, [id number] ####Pin Setter: JULI JONES ([id number])[facility]ITALJohanny MATOSROSALIE RITTMAN (SWRLAB)[address] [place] [address] [place] GLOMERULAR FILTRATION RATE ML/MIN/1.73 SQ M.PREDICTED 20.8 mL/min/1.73m*2 Low >60.0 [facility] Comment on above: Result Comment: Calc ulation based on the Chronic Kidney Disease Epidemiology Collaboration (CKD-EPI) equation refit without adjustment for race Performed By: #### L AB17, [id number] ####Pin Setter: JULI JONES ([id number])[facility]ITALJohanny [facility] (SWRLAB)[address] [place] [address] [place] Glucose [Mass/Vol] 86 mg/dL Normal 74-100 [facility] Comment on above: Performed By: #### L AB17, [id number] ####Pin Setter: JULI JNOES ([id number])[facility]ITALJohanny [facility] (SWRLAB)[address] Potassium [Moles/Vol] 4.2 mmol/L Normal 3.5-5.1 [facility] Comment on above: Result Comment: [facility] potassium values may be up to 0.5 mmol/L lower than serum values. Performed By: #### L AB17, [id number] ####Pin Setter: JULI JONES ([id number])[facility]OS[facility]ITALJohanny DELVALLETMAN (SWRLAB)[address] [place] [address] [place] Protein [Mass/Vol] 6.1 g/dL Low 6.4-8.3 [facility] Comment on above: Performed By: #### L AB17, [id number] ####Pin Setter: JULI JONES ([id number])[facility]ITALJ[facility]anny [facility] (SWRLAB)[address] [place] [address] [place] Sodium [Moles/Vol] 129 mmol/L Low 136-145 [facility] Comment on above: Performed By: #### L AB17, [id number] ####Pin Setter: JULI JONES ([id number])[facility]ITALJohanny [facility]IG[facility] (SWRLAB)[address] [place] [address] [place] Urea nitrogen [Mass/Vol] 30 mg/dL High 9-23 [facility] Comment on above: Performed By: #### L AB17, [id number] ####Pin Setter: JULI JONES ([id number])[facility]ITALJ[facility]anny [facility] (SWRLAB)[address] [place] [address] CT HEAD WO IV CONTRASTon CT HEAD WO IV CONTRAST Normal [facility] CT Head WO contraston [address] evidence of ac jeremy intracranial abnormality. Report Dictated on Electronically Signed By: Jarrell Lawler MD Electronically Signed Date/Time: 11/15/2024 7:47 AM EDT [facility] [facility] Patient Name: JESSY WEN : 1965 Exam Date/Time: 11/15/2024 06:49 Procedure: CT HEAD WO IV CONTRAST Ordering Provider: KIRKLAND AUSTIN Reason For Exam: fall, hit back of head, no loc CT HEAD WITHOUT CONTRAST CLINICAL INDICATION: fall, hit back of head, no loc. Headache. TECHNIQUE: Axial CT images of the brain were obtained without intravenous contrast. Coronal and sagittal reformatted images were also made available for interpretation. Dose reduction was employed with automated exposure control. COMPARISON: 08/25/2023. FINDINGS: Limitations: No significant limitations. Ventricles and Extra-axial spaces: Background of parenchymal volume loss which is asymmetrically greater on the right. Small arachnoid cyst anterior lateral right posterior fossa with possible small left-sided arachnoid cyst in similar position. No new extra-axial fluid collection. No localized mass effect or midline shift. Cerebral and Cerebellar parenchyma: No CT evidence of acute intracranial hemorrhage or acute territorial infarct. There may be some subtle patchy hypoattenuation the periventricular and subcortical white matter. Paranasal sinuses: Appear fairly well aerated. Mastoid air cells: Appear fairly well aerated. Orbital contents: No significant abnormality within the visualized portions Calvarium and Skull base: Intact Additional findings: Soft tissue swelling/hematoma, posterior right parietal scalp [facility] Sindy Lawler MD - 11/15/2024 Patient Name: [facility]ESS[facility] MCKEON : 1965 [id number] Exam Date/Time: 11/15/2024 06:49 Procedure: CT HEAD WO IV CONTRAST Ordering Provider: KIRKLAND AUSTIN Reason For Exam: fall, hit back of head, no loc CT HEAD WITHOUT CONTRAST CLINICAL INDICATION: fall, hit back of head, no loc. Headache. TECHNIQUE: Axial CT images of the brain were obtained without intravenous contrast. Coronal and sagittal reformatted images were also made available for interpretation. Dose reduction was employed with automated exposure control. COMPARISON: 08/25/2023. FINDINGS: Limitations: No significant limitations. Ventricles and Extra-axial spaces: Background of parenchymal volume loss which is asymmetrically greater on the right. Small arachnoid cyst anterior lateral right posterior fossa with possible small left-sided arachnoid cyst in similar position. No new extra-axial fluid collection. No localized mass effect or midline shift. Cerebral and Cerebellar parenchyma: No CT evidence of acute intracranial hemorrhage or acute territorial infarct. There may be some subtle patchy hypoattenuation the periventricular and subcortical white matter. Paranasal sinuses: Appear fairly well aerated. Mastoid air cells: Appear fairly well aerated. Orbital contents: No significant abnormality within the visualized portions Calvarium and Skull base: Intact Additional findings: Soft tissue swelling/hematoma, posterior right parietal scalp IMPRESSION: No CT evidence of acute intracranial abnormality. Report Dictated on Electronically Signed By: Jarrell Lawler MD Electronically Signed Date/Time: 11/15/2024 7:47 AM EDT [facility] [employer] Radiology Study observation (narrative) [facility] [employer] CT Head WO contrastOrdered B y: Sindy Lawler on 11-15-2024 [facility] [employer] Work Phone: Comprehensive metabolic 1998 panelon 11-15-2024 Albumin [Mass/Vol] 2.8 g/dL Low 3.5 - 5.0 g/dL [facility] [employer] ALP [Catalytic activity/Vol] 49 U/L 40 - 150 U/L [facility] [employer] ALT [Catalytic activity/Vol] U/L NINF - 30 U/L [facility] [employer] Anion gap [Moles/Vol] 9 mmol/L 3 - 13 mmol/L [facility] [employer] AST [Catalytic activity/Vol] 23 U/L NINF - 34 U/L [facility] [employer] Bilirubin [Mass/Vol] 0.3 mg/dL NINF - 1.2 mg/dL [facility] [employer] Calcium [Mass/Vol] 8.5 mg/dL 8.4 - 10. 2 mg/dL [facility] [employer] Chloride [Moles/Vol] 95 mmol/L Low 98 - 10 7 mmol/L [facility] CO2 [Moles/Vol] 25 mmol/L 22 - 29 mmol/L [facility] Creatinine [Mass/Vol] 2.61 mg/dL High 0.57 - 1.11 mg/dL [facility] GFR/1.73 sq M.predicted (S/P/Bld) [Vol rate/Area] 20.8 mL/min Low - PINF [facility] Comment on above: Calculation based on the Chronic Kidney Disease Epidemiology Collaboration (CKD-EPI) equation refit without adjustment for race Glucose [Mass/Vol] 86 mg/dL 74 - 100 mg/dL [facility] Interpretation and review of laboratory results Abnormal [facility] Potassium [Moles/Vol] 4.2 mmol/L 3.5 - 5.1 mmol/L [facility] Comment on above: Plasma potassium [place] may be up to 0.5 mmol/L lower than serum values. Protein [Mass/Vol] 6.1 g/dL Low 6.4 - 8.3 g/dL [facility] Sodium [Moles/Vol] 129 mmol/L Low 136 - 145 mmol/L [facility] Urea nitrogen [Mass/Vol] 30 mg/dL High 9 - 23 mg/dL [facility] ECG 12-LEADon 11-15-2024 ECG 12-LEAD IMPRESSION: Sinus rhythm Borderline repolarization abnormality Electronically Signed On 11-15-2024 07:35:57 EDT by Jess Patton Normal [facility] ED Nursing Noteon 11-15-2024 ED Nursing Note Robert [facility] to [facility] pt back to assisted living facility, set up via roundtrip. ETA 1100. Normal [facility] ED Nursing Note Urinary cath removed per verbal order from MD Pooja. Normal [facility] ED Nursing Note Patient arrived via Rosalie squad from nursing facility. Patient states she got dizzy and fell, hitting the back of her head. Patient denies any LOC. No lacerations seen. Pain 8/10. Normal [facility] ED Provider Noteon ED Provider Note Normal [facility] LAMOTRIGINE LEVEL (BKR QUEST )on 11-15-2024 QUEST LAMOTRIGINE 12.6 mcg/mL Normal 2.5-15.0 [facility] Comment on above: Result Comment: This test was developed and its analytical performancecharacteristics have been determined by [employer] [place], [place]. It hasnot been cleared or approved by the U.S. Food and DrugAdministration. This assay has been validated pursuantto the CLIA regulations and is used for clinicalpurposes.Test Performed by [facility] TelecommunicationK[facility],[employer] [facility],[address] [place], [place] [address]Rblzkvcbaljit Murrieta M.D., Ph.D., Director of [phone], CLIA [id number] Performed By: #### L [id number] ####Progression (AMDBEAKER)[id number] [place], [place] [facility] Laboratory - Chemistry and C hemistry - challengeon 11-15-2024 Ammonia (P) [Moles/Vol] 38 umol/L 18 - 72 umol/L [facility] Laboratory - Drug toxicology on 11-15-2024 Valproate [Mass/Vol] 56 ug/mL 50 - 12 5 ug/mL [facility] [employer] NT PRO BNPon 11-15-2024 Natriuretic peptide B (Bld) [Mass/Vol] 1700 pg/mL High <125 [facility] Comment on above: Performed By: #### L AB17, [id number] ####Pin Setter: JULI JONES ([id number])[facility] ([facility])[address] [place] [address] Natriuretic peptide B [Mass/ Vol]on 11-15-2024 Interpretation and review of laboratory results Abnormal [facility] Natriuretic peptide B (Bld) [Mass/Vol] 1700 pg/mL High NINF - 125 pg/mL [facility] [employer] No Panel Informationon 11-15 Interpretation and review of laboratory results Normal [facility] Toxicity is seen at concentrations >175 ug/mL [facility] Interpretation and review of laboratory results Normal [facility] Health P English 22 degrees [facility] CA Interval 193 ms [facility] QRS English 29 degrees [facility] QRSD Interval 110 ms [facility] [employer] QT Interval 422 ms [facility] QTC Interval 430 ms [facility] Wave English 16 degrees [facility] Sinus rhythm Borderline repolarization abnormality Electronically Signed On 11-15-2024 07:35:57 EDT by Jess Patton CV Jess Cordova MD - 11/15/2024 IMPRESSION: Sinus rhythm Borderline repolarization abnormality Electronically Signed On 11-15-2024 07:35:57 EDT by Jess Patton [facility] VALPROIC ACID TOTALon 2024 VALPROIC ACID 56 ug/mL Normal 50-125 [facility] Comment on above: Result Comment: ORDE R COMMENTS:Toxicity is seen at concentrations >175 ug/mL Performed By: #### L AB24 ####Pin Setter: BRENDA JEAN ([id number])[facility] ([facility])[address] [place] [address] Vital signson 11-15-2024 Heart rate 62 /min bpm [facility] XR Chest Single viewon 11-15 FINDINGS/IMPRESSION: Limitations: Patient positioning/rotation. Supine portable technique Lines, tubes, and devices: None. Cardiomediastinal silhouette: Not well evaluated to technique: Likely within normal limits. Lungs/Pleura: No consolidation, pleural effusions, or pneumothorax. Borderline central pulmonary vascular congestion. Osseous structures: Degenerative spondylosis in the visualized spine. Degenerative changes in both glenohumeral joints. Soft tissues: No soft tissue abnormality is detected. Report Dictated on Electronically Signed By: Jarrell Lawler MD Electronically Signed Date/Time: 11/15/2024 7:50 AM EDT [facility] [employer] SYSTEM Patient Name: JESSY WEN : 1965 Exam Date/Time: 11/15/2024 07:18 Procedure: XR CHEST 1 VIEW Ordering Provider: KIRKLAND AUSTIN Reason For Exam: pedal edema, fall CHEST - PORTABLE: CLINICAL INDICATION: pedal edema, fall. Chest pain. TECHNIQUE: Portable AP COMPARISON: 10/02/2024. [facility] Sindy Lawler MD - 11/15/2024 Patient Name: JESSY MCKEON : 1965 Exam Date/Time: 11/15/2024 07:18 Procedure: XR CHEST 1 VIEW Ordering Provider: KIRKLAND AUSTIN Reason For Exam: pedal edema, fall CHEST - PORTABLE: CLINICAL INDICATION: pedal edema, fall. Chest pain. TECHNIQUE: Portable AP COMPARISON: 10/02/2024. IMPRESSION: FINDINGS/IMPRESSION: Limitations: Patient positioning/rotation. Supine portable technique Lines, tubes, and devices: None. Cardiomediastinal silhouette: Not well evaluated to technique: Likely within normal limits. Lungs/Pleura: No consolidation, pleural effusions, or pneumothorax. Borderline central pulmonary vascular congestion. Osseous structures: Degenerative spondylosis in the visualized spine. Degenerative changes in both glenohumeral joints. Soft tissues: No soft tissue abnormality is detected. Report Dictated on Electronically Signed By: Jarrell Lawler MD Electronically Signed Date/Time: 11/15/2024 7:50 AM EDT [facility] Radiology Study observation (narrative) [facility] XR Pelvis 1 or 2 Viewson No acute fracture or dislocation. Report Dictated on Electronically Signed By: Jarrell Lawler MD Electronically Signed Date/Time: 11/15/2024 7:49 AM EDT [facility] [place] RADIOLOGY SYSTEM Patient Name: JESSY WEN : 1965 Exam Date/Time: 11/15/2024 07:18 Procedure: XR PELVIS 1-2 VIEWS Ordering Provider: KIRKLAND AUSTIN Reason For Exam: fall, trauma eval EXAM: XR Pelvis, 1 or 2 Views CLINICAL INDICATION: fall, trauma eval Status post fall with pelvic pain. TECHNIQUE: Frontal view of the pelvis. COMPARISON: 11/03/2024. FINDINGS: Limitations: Overlying bowel gas and its evaluation to some extent. Patient positioning and single view technique. Bones/joints: No acute fracture or dislocation. Mild osteoarthritis right and left hip. Degenerative changes in the sacroiliac joints. Degenerative changes and postsurgical changes in the visualized lumbosacral spine. Soft tissues: Within normal limits. Tubes, lines and devices: Infante catheter in place. [facility] Sindy Lawler MD - 11/15/2024 Patient Name: JESSY MCKEON : 1965 Exam Date/Time: 11/15/2024 07:18 Procedure: XR PELVIS 1-2 VIEWS Ordering Provider: KIRKLAND AUSTIN Reason For Exam: fall, trauma eval EXAM: XR Pelvis, 1 or 2 Views CLINICAL INDICATION: fall, trauma eval Status post fall with pelvic pain. TECHNIQUE: Frontal view of the pelvis. COMPARISON: 11/03/2024. FINDINGS: Limitations: Overlying bowel gas and its evaluation to some extent. Patient positioning and single view technique. Bones/joints: No acute fracture or dislocation. Mild osteoarthritis right and left hip. Degenerative changes in the sacroiliac joints. Degenerative changes and postsurgical changes in the visualized lumbosacral spine. Soft tissues: Within normal limits. Tubes, lines and devices: Infante catheter in place. IMPRESSION: No acute fracture or dislocation. Report Dictated on Electronically Signed By: Jarrell Lawler MD Electronically Signed Date/Time: 11/15/2024 7:49 AM EDT [facility] Radiology Study observation (narrative) [facility] 3611-12-2024 36 Normal [facility] 36on 11-09-2024 36 Normal [facility] 36on 11-08-2024 36 OV notes faxed and confirmation received Normal [facility] 36 Jeremi was notified yesterday, will fax OV notes Normal [facility] 36on 11-07-2024 36 Ok for verbal order Normal [facility] 36 Normal [facility] Progress Noteon 11-05-2024 Progress Note Normal [facility] CBC (HEMOGRAM)on 11-03-2024 Erythrocyte distribution width (RBC) [Ratio] 13.4 % Normal 11.5-15.0 [facility] Comment on above: Performed By: #### L [id number] ####Pin Setter: JULI JONES ([id number])[employer] (SWRL[employer])[address] [place] [address] Hematocrit (Bld) [Volume fraction] 26.1 % Low 35.0-47.0 [facility] Comment on above: Performed By: #### L [id number] ####Pin Setter: JULI JONES ([id number])[facility] (SWRL[facility])[address] [place] [address] Hemoglobin (Bld) [Mass/Vol] 8.7 g/dL Low 11.7-16.0 [facility] Comment on above: Performed By: #### L [id number] ####Pin Setter: JULI JONES ([id number])[facility]ITALJ[facility] DELVALLETMAN (SWRLAB)[address] [place] [address] MCH (RBC) [Entitic mass] 32.3 pg Normal 26.0-34.0 [facility] Comment on above: Performed By: #### L [id number] ####Pin Setter: JULI JONES ([id number])[facility]ITALJ[facility] DELVALLETMAN (SWRLAB)[address] [place] [address] MCHC 33.3 % Normal 30.5-36.0 [facility] Comment on above: Performed By: #### L [id number] ####Pin Setter: JULI JONES ([id number])[facility]ITALJ[facility] [employer] (SWRL[facility])[address] [place] [address] MCV (RBC) [Entitic vol] 97.0 fL Normal 77.0-99.0 [facility] Comment on above: Performed By: #### L [id number] ####Pin Setter: JULI JONES ([id number])[facility]ITALJ[facility] [place] (SWRL[facility])[address] [place] [address] Platelet mean volume (Bld) [Entitic vol] 9.3 fL Normal 9.0-12.7 [facility] Comment on above: Result Comment: MPV is a calculated measurement using platelet volume ratio Performed By: #### L [id number] ####Pin Setter: JULI JONES ([id number])[facility]ITALJ[facility] DELVALLETMAN (SWRL[place])[address] [place] [address] Platelets (Bld) [#/Vol] 236 10*3/uL Normal 140-440 [facility] Comment on above: Performed By: #### L [id number] ####Pin Setter: JULI JONES ([id number])[facility]ITALJ[facility] DELVALLETMAN (SWRLAB)[address] [place] [address] RBC (Bld) [#/Vol] 2.69 10*6/uL Low 3.80-5.20 [facility] Comment on above: Performed By: #### L [id number] ####Pin Setter: JULI JONES ([id number])[facility]ITALJ[facility] DELVALLETMAN (SWRLAB)[address] [place] [address] WBC (Bld) [#/Vol] 8.9 10*3/uL Normal 3.6-10.7 [facility] Comment on above: Performed By: #### L [id number] ####Pin Setter: JULI JONES ([id number])[facility]ITALJ[facility]anny MORRISAN (SWRLAB)[address] [place] [address] CBC panel Auto (Bld)on 11-03 Erythrocyte distribution width (RBC) [Ratio] 13.4 % 11.5 - 15.0 % [facility] Hematocrit (Bld) [Volume fraction] 26.1 % Low 35.0 - 47.0 % [facility] Hemoglobin (Bld) [Mass/Vol] 8.7 g/dL Low 11.7 - 16.0 g/dL [facility] Interpretation and review of laboratory results Abnormal [facility] MCH (RBC) [Entitic mass] 32.3 pg 26.0 - 34.0 pg [facility] MCHC (RBC) [Mass/Vol] 33.3 % 30.5 - 36.0 % [facility] MCV (RBC) [Entitic vol] 97 fL 77.0 - 99.0 fL [facility] Platelet mean volume (Bld) [Entitic vol] 9.3 fL 9.0 - 12.7 fL [facility] Comment on above: MPV is a calculated measurement using platelet volume ratio Platelets (Bld) [#/Vol] 236 10*3/uL 140 - 440 10*3/uL [facility] RBC (Bld) [#/Vol] 2.69 10*6/uL Low 3.80 - 5.20 10*6/uL [facility] WBC (Bld) [#/Vol] 8.9 10*3/uL 3.6 - 10.7 10*3/uL [facility] COMPLETE URINALYSISon 2024 BACTERIA (#/HPF) IN URINE Negative Normal Negative [facility] Comment on above: Performed By: #### L [id number] ####Pin Setter: JULI JONES ([id number])[facility] [employer] (SWRLAB)[address] [place] [address] [place] BILIRUBIN, TOTAL PRESENCE IN URINE Negative Normal Negative [facility] Comment on above: Performed By: #### L [id number] ####Pin Setter: JULI JONES ([id number])[facility] [employer] (SWRL[employer])[address] [place] [address] Clarity (U) Clear Normal Clear [facility] Comment on above: Performed By: #### L [id number] ####Pin Setter: JULI JONES ([id number])[facility] [employer] (SWRLAB)[address] [place] [address] Color (U) Colorless Normal Lt. Yellow [facility] Comment on above: Performed By: #### L [id number] ####Pin Setter: JULI JONES ([id number])[facility] [employer] (SWRL[employer])[address] [place] [address] [place] GLUCOSE (MG/DL) IN URINE Normal Normal Normal (<70) [facility] Comment on above: Performed By: #### L [id number] ####Pin Setter: JULI JONES ([id number])[facility]ITALJ[facility]anny [place] (SW[place])[address] [place] [address] [place] HEMOGLOBIN PRESENCE IN URINE Negative Normal Negative [facility] Comment on above: Performed By: #### L [id number] ####Pin Setter: JULI JONES ([id number])[facility]ITALJ[facility] [employer] ([place])[address] [place] [address] [place] Ketones Ql (U) Negative Normal Negative [facility] Comment on above: Performed By: #### L [id number] ####Pin Setter: JULI JONES ([id number])[facility]ITALJ[facility]anny [place] (SWRL[place])[address] LEUKOCYTE ESTERASE PRESENCE IN URINE BY TEST STRIP Negative Normal Negative [facility] Comment on above: Performed By: #### L [id number] ####Pin Setter: JULI JONES ([id number])[facility]ITALJ[facility]anny [employer] ([place])[address] [place] [address] [place] NITRITE PRESENCE IN URINE Negative Normal Negative [facility] Comment on above: Performed By: #### L [id number] ####Pin Setter: JULI JONES ([id number])[facility]ITALJ[facility]anny [employer] (SWRL[facility])[address] [place] [address] [place] pH (U) 6.0 [pH] Normal 5.0-8.0 [facility] Comment on above: Performed By: #### L [id number] ####Pin Setter: UJLI JONES ([id number])[facility]OS[facility]ITALJohanny MATOSROSALIE RITTMAN (SWRLAB)[address] [place] [address] [place] Protein (U) [Mass/Vol] 10 mg/dL Abnormal Negative [facility] Comment on above: Performed By: #### L [id number] ####Pin Setter: JULI JONES ([id number])[facility]ITALJohanny MATOSROSALIE RITTMAN (SWRLAB)[address] [place] [address] [place] RBC (#/HPF) IN URINE SEDIMENT 0-2 Normal 0-2 [facility] Comment on above: Performed By: #### L [id number] ####Pin Setter: JULI JONES ([id number])[facility]OS[facility]ITALA [employer] (SWRLAB)[address] [place] [address] Specific gravity (U) [Rel density] 1.004 Low 1.005-1.03 0 [facility] Comment on above: Performed By: #### L [id number] ####Pin Setter: JULI JONES ([id number])[facility]ITALA [employer] (SWRL[facility])[address] [place] [address] Specimen volume (U) 12 mL Normal [facility] Comment on above: Performed By: #### L [id number] ####Pin Setter: JULI JONES ([id number])[facility]ITALA [employer] (SWRL[facility])[address] [place] [address] [place] SQUAMOUS EPITHELIAL CELLS (#/HPF) IN URINE SEDIMENT Negative Normal 3-5 [facility] Comment on above: Performed By: #### L [id number] ####Pin Setter: JULI JONES ([id number])[facility]ITALA [employer] (SWRLAB)[address] [place] [address] [place] UROBILINOGEN (MG/DL) IN URINE Normal Normal Normal (0-1) [facility] Comment on above: Performed By: #### L [id number] ####Pin Setter: JULI JONES ([id number])[facility]ITALA [employer] (SWRL[facility])[address] [place] [address] [place] WBC (LEUKOCYTE) (#/HPF) IN URINE SEDIMENT Negative Normal 0-5 [facility] Comment on above: Performed By: #### L [id number] ####Pin Setter: JULI JONES ([id number])[facility]ITALA [employer] [employer] (SWRLAB)[address] [place] [address] ED Nursing Noteon 11-03-2024 ED Nursing Note Pt. Left ED via stre tcher with EMS. Infante Catheter in place upon transfer as per provider instructions. Normal [facility] ED Provider Noteon ED Provider Note Normal [facility] Laboratory - Chemistry and C hemistry - challengeon 11-03-2024 Anion gap (Bld) [Moles/Vol] 11 mmol/L 3.00 - 13.00 [facility] Calcium.ionized (Bld) [Moles/Vol] 4.7 mg/dl 4.30 - 5.20 mg/dl [facility] Chloride [Moles/Vol] 91 mmol/L Low 98 - 11 4 mmol/L [facility] CO2 [Moles/Vol] 28 mmol/L 21 - 29 mmol/L [facility] Creatinine [Mass/Vol] 3.5 mg/dL High 0.6 - 1.3 mg/dL [facility] GFR/1.73 sq M.predicted CKD-EPI (S/P/Bld) [Vol rate/Area] 14.6 [facility] Comment on above: KDIGO guidelines pro vide the following GFR categories: Stage GFR (ml/min/1.73 m2) Terms G1 >=90 Normal or high G2 60-89 Mildly decreased* G3a 45-59 Mildly to moderately decreased G3b 30-44 Moderately to severely decreased G4 15-29 Severely decreased G5 <15 Kidney failure *Relative to young adult level. In the absence of evidence of kidney damage, neither GFR category G1 nor G2 fulfill the criteria for CKD. The CKD-EPI equation is validated in individuals 18 years of age and older. Currently the best equation for estimating glomerular filtration rate (GFR) from serum creatinine in children is the Bedside Barber equation. It is less accurate in patients with extremes of muscle mass, restriction of dietary protein, ingestion of creatine, extra-renal metabolism of creatinine, or treatment with medications that affect renal tubular creatinine secretion. Glucose [Mass/Vol] 89 mg/dL 70 - 100 mg/dL [facility] Potassium [Moles/Vol] 3.7 mmol/L 3.4 - 5.1 mmol/L [facility] Sodium [Moles/Vol] 130 mmol/L Low 133 - 145 mmol/L [facility] Urea (Bld) [Mass/Vol] 31 mg/dL High 4 - 22 mg/dL [facility] No Panel Informationon 03-22 -2025 Interpretation and review of laboratory results Abnormal [facility] Performed by: [facility], [address] [place] [address] CLIA ID: [id number] [facility] Urinalysis complete panel (U )Ordered By: Katarina Larkin on 11-03-2024 Bacteria LM.HPF (Urine sed) [#/Area] Negative Negative /HPF [facility] Bilirubin Ql (U) Negative Negative mg/dL [facility] Clarity (U) Clear Clear [facility] Color (U) Colorless Lt. Yellow [facility] Epithelial cells.squamous LM.HPF (Urine sed) [#/Area] Negative [facility] Glucose Ql (U) Normal Normal (<70) mg/dL [facility] Hemoglobin Ql (U) Negative Negative mg/dL [facility] Interpretation and review of laboratory results Abnormal [facility] Ketones (U) [Mass/Vol] Negative Negat jayne mg/dL [facility] Leukocyte esterase Test strip Ql (U) Negative Negative Devang/uL [facility] Nitrite Ql (U) Negative Negative [facility] pH (U) 6.0 [pH] 5.0 - 8.0 pH [facility] Protein (U) [Mass/Vol] 10 mg/dL Abnormal Negative [facility] RBC LM.HPF (Urine sed) [#/Area] 0-2 [facility] Specific gravity (U) [Rel density] 1.004 Low 1.005 - 1.030 [facility] Urobilinogen (U) [Mass/Vol] Normal Normal (0-1) mg/dL [facility] Volume, Urine 12 mL [facility] WBC LM.HPF (Urine sed) [#/Area] Negative [facility] XR Hip - right 3 Viewson No acute fracture or dislocation identified. Report Dictated on Electronically Signed By: Harvey Rayo MD Electronically Signed Date/Time: 11/03/2024 3:28 AM [facility] RADIOLOGY SYSTEM Patient Name: JESSY WNE : 1965 Exam Date/Time: 11/03/2024 02:57 Procedure: XR HIP 2 OR 3 VW RIGHT Ordering Provider: LEES MEJGON Reason For Exam: fall RIGHT HIP: CLINICAL INDICATION: Fall TECHNIQUE: AP and Lateral COMPARISON: 08/03/2024 FINDINGS: There is no evidence for fracture or dislocation. The hips joints are unremarkable. The sacroiliac joints are normal. Postsurgical changes compatible with lumbosacral spinal fusion. There is no soft tissue abnormality. [facility] Harvey Rayo MD - 11/03/2024 Patient Name: JESS[facility]KEON : 1965 [id number] Exam Date/Time: 11/03/2024 02:57 Procedure: XR HIP 2 OR 3 VW RIGHT Ordering Provider: LEES MEJGON Reason For Exam: fall RIGHT HIP: CLINICAL INDICATION: Fall TECHNIQUE: AP and Lateral COMPARISON: 08/03/2024 FINDINGS: There is no evidence for fracture or dislocation. The hips joints are unremarkable. The sacroiliac joints are normal. Postsurgical changes compatible with lumbosacral spinal fusion. There is no soft tissue abnormality. IMPRESSION: No acute fracture or dislocation identified. Report Dictated on Electronically Signed By: Harvey Rayo MD Electronically Signed Date/Time: 11/03/2024 3:28 AM EDT [facility] Radiology Study observation (narrative) [facility] XR Hip - right 3 ViewsOrdere d By: Harvey Rayo on 11-03-2024 [facility] Work Phone: 36on 10-11-2024 36 Jeremi aware Normal [facility] 36 Normal [facility] 36 Normal [facility] 36on 10-08-2024 36 Patient declined hos pital follow up appointment at this time. Normal [facility] 36 See if patient would like to schedule a hospital follow-up please asked the hospital follow-up transfer questions Normal [facility] 30on 10-06-2024 30 Normal [facility] [id number] 10-06-2024 [id number] Normal [facility] BASIC METABOLIC PANELon 09-16 Anion gap [Moles/Vol] 7 mmol/L Normal 3-13 [facility] Comment on above: Performed By: #### L AB15 ####Pin Setter: JULI JONES ([id number])[facility] ([facility])[address] [place] [address] Calcium [Mass/Vol] 8.5 mg/dL Normal 8.4-10.2 [facility] Comment on above: Performed By: #### L AB15 ####Pin Setter: JULI JONES ([id number])[facility] ([facility])[address] [place] [address] Chloride [Moles/Vol] 108 mmol/L High 98-107 [facility] Comment on above: Performed By: #### L AB15 ####Pin Setter: JULI JONES ([id number])[facility] ([facility])[address] [place] [address] CO2 [Moles/Vol] 26 mmol/L Normal 22-29 [facility] Comment on above: Performed By: #### L AB15 ####Pin Setter: JULI JONES ([id number])[facility] ([facility])[address] [place] [address] Creatinine [Mass/Vol] 2.94 mg/dL High 0.57-1.11 [facility] Comment on above: Performed By: #### L AB15 ####Pin Setter: JULI JONES ([id number])[facility] ([facility])[address] [place] [address] GLOMERULAR FILTRATION RATE ML/MIN/1.73 SQ M.PREDICTED 18.1 mL/min/1.73m*2 Low >60.0 [facility] Comment on above: Result Comment: Calc ulation based on the Chronic Kidney Disease Epidemiology Collaboration (CKD-EPI) equation refit without adjustment for race Performed By: #### L AB15 ####Pin Setter: JULI JONES ([id number])[facility] ([facility])[address] [place] [address] Glucose [Mass/Vol] 81 mg/dL Normal 74-100 [facility] Comment on above: Performed By: #### L AB15 ####Pin Setter: JULI JONES ([id number])[facility] ([facility])[address] [place] [address] Potassium [Moles/Vol] 4.1 mmol/L Normal 3.5-5.1 [facility] Comment on above: Result Comment: [facility] potassium values may be up to 0.5 mmol/L lower than serum values. Performed By: #### L AB15 ####Pin Setter: JULI JONES ([id number])[facility] ([facility])[address] [place] [address] Sodium [Moles/Vol] 141 mmol/L Normal 136-145 [facility] Comment on above: Performed By: #### L AB15 ####Pin Setter: JULI JONES ([id number])[facility])[address] [place] [address] Urea nitrogen [Mass/Vol] 31 mg/dL High 9-23 [facility] Comment on above: Performed By: #### L AB15 ####Pin Setter: JULI JONES ([id number])[facility])[address] [place] [address] CBC WITH AUTO DIFFERENTIALon 10-06-2024 Basophils (Bld) [#/Vol] 0.0 10*3/uL Normal 0.0-0.2 [facility] Comment on above: Performed By: #### L [id number] ####Pin Setter: JULI JONES ([id number])[facility])[address] [place] [address] Basophils/100 WBC (Bld) 0.4 % Normal 0.0-2.0 [facility] Comment on above: Performed By: #### L [id number] ####Pin Setter: JULI JONES ([id number])[facility])[address] [place] [address] Eosinophils (Bld) [#/Vol] 0.4 10*3/uL Normal 0.0-0.5 [facility] Comment on above: Performed By: #### L [id number] ####Pin Setter: JULI JONES ([id number])[facility])[address] [place] [address] Eosinophils/100 WBC (Bld) 5.6 % Normal 0.0-6.0 [facility] Comment on above: Performed By: #### L [id number] ####Pin Setter: JULI JONES ([id number])[facility])[address] [place] [address] Erythrocyte distribution width (RBC) [Ratio] 14.3 % Normal 11.5-15.0 [facility] Comment on above: Performed By: #### L [id number] ####Pin Setter: JULI JONES ([id number])[address] Hematocrit (Bld) [Volume fraction] 28.6 % Low 35.0-47.0 [facility] Comment on above: Performed By: #### L [id number] ####Pin Setter: JULI JONES ([id number])[facility])[address] [place] [address] Hemoglobin (Bld) [Mass/Vol] 9.3 g/dL Low 11.7-16.0 [facility] Comment on above: Performed By: #### L [id number] ####Pin Setter: JULI JONES ([id number])[facility])[address] [place] [address] IMMATURE GRANS % 0.3 % Normal 0.0-2.0 [facility] Comment on above: Performed By: #### L [id number] ####Pin Setter: JULI JONES ([id number])[facility])[address] [place] [address] IMMATURE GRANS ABSOLUTE 0.0 10*3/uL Normal <0.1 [facility] Comment on above: Performed By: #### L [id number] ####Pin Setter: JULI JONES ([id number])[facility])[address] [place] [address] Lymphocytes (Bld) [#/Vol] 3.1 10*3/uL Normal 1.0-4.3 [facility] Comment on above: Performed By: #### L [id number] ####Pin Setter: JULI JONES ([id number])[facility])[address] [place] [address] Lymphocytes/100 WBC (Bld) 45.0 % Normal 15.0-45.0 [facility] Comment on above: Performed By: #### L [id number] ####Pin Setter: JULI JONES ([id number])[facility])[address] [place] [address] MCH (RBC) [Entitic mass] 32.4 pg Normal 26.0-34.0 [facility] Comment on above: Performed By: #### L [id number] ####Pin Setter: JULI JONES ([id number])[facility])[address] [place] [address] MCHC 32.5 % Normal 30.5-36.0 [facility] Comment on above: Performed By: #### L [id number] ####Pin Setter: JULI JONES ([id number])[facility])[address] [place] [address] MCV (RBC) [Entitic vol] 99.7 fL High 77.0-99.0 [facility] Comment on above: Performed By: #### L [id number] ####Pin Setter: JULI JONES ([id number])[facility])[address] [place] [address] Monocytes (Bld) [#/Vol] 0.6 10*3/uL Normal 0.0-0.9 [facility] Comment on above: Performed By: #### L [id number] ####Pin Setter: JULI JONES ([id number])[facility])[address] [place] [address] Monocytes/100 WBC (Bld) 8.6 % Normal 5.0-13.0 [facility] Comment on above: Performed By: #### L [id number] ####Pin Setter: JULI JONES ([id number])[facility] ([facility])[address] [place] [address] NEUTROPHILS ABSOLUTE 2.7 10*3/uL Normal 1.8-7.5 [facility] Comment on above: Performed By: #### L [id number] ####Pin Setter: JULI JONES ([id number])[facility] ([facility])[address] [place] [address] Neutrophils/100 WBC (Bld) 40.1 % Normal 38.0-82.0 [facility] Comment on above: Performed By: #### L [id number] ####Pin Setter: JULI JONES ([id number])[facility])[address] [place] [address] NRBC 0.0 /100 WBCs Normal 0.0-2.0 [facility] Comment on above: Performed By: #### L [id number] ####Pin Setter: JULI JONES ([id number])[facility] ([facility])[address] [place] [address] Platelet mean volume (Bld) [Entitic vol] 9.5 fL Normal 9.0-12.7 [facility] Comment on above: Performed By: #### L [id number] ####Pin Setter: JULI JONES ([id number])[facility] ([facility])[address] [place] [address] [place] Platelets (Bld) [#/Vol] 222 10*3/uL Normal 140-440 [facility] Comment on above: Performed By: #### L [id number] ####Pin Setter: JULI JONES ([id number])[facility])[address] [place] [address] RBC (Bld) [#/Vol] 2.87 10*6/uL Low 3.80-5.20 [facility] Comment on above: Performed By: #### L [id number] ####Pin Setter: JULI JONES ([id number])[facility] ([facility])[address] [place] [address] WBC (Bld) [#/Vol] 6.8 10*3/uL Normal 3.6-10.7 [facility] Comment on above: Performed By: #### L [id number] ####Pin Setter: JULI JONES ([id number])[facility] ([facility])[address] [place] [address] Nursing Noteon 10-06-2024 Nursing Note Report Called to Pt' s Assisted Living. Normal [facility] Progress Noteon 10-06-2024 Progress Note Normal [facility] 30on 10-05-2024 30 [facility] [id number] 10-05-2024 [id number] [facility] faxed or lorenza for PT/OT for patient to participate at return to [place]. Normal [facility] [id number] 10-05-2024 [id number] Normal [facility] [id number] [facility] [id number] [facility] BASIC METABOLIC PANELon 09-16 Anion gap [Moles/Vol] 7 mmol/L Normal 3-13 [facility] Comment on above: Performed By: #### L AB15 ####Pin Setter: JULI JONES ([id number])[facility] ([facility])[address] [place] [address] Calcium [Mass/Vol] 8.5 mg/dL Normal 8.4-10.2 [facility] Comment on above: Performed By: #### L AB15 ####Pin Setter: JULI JONES ([id number])[facility] ([facility])[address] [place] [address] Chloride [Moles/Vol] 107 mmol/L Normal 98-107 [facility] Comment on above: Performed By: #### L AB15 ####Pin Setter: JULI JONES ([id number])[facility] ([facility])[address] [place] [address] CO2 [Moles/Vol] 25 mmol/L Normal 22-29 [facility] Comment on above: Performed By: #### L AB15 ####Pin Setter: JULI JONES ([id number])[facility])[address] [place] [address] Creatinine [Mass/Vol] 2.87 mg/dL High 0.57-1.11 [facility] Comment on above: Performed By: #### L AB15 ####Pin Setter: JULI JONES ([id number])[facility])[address] [place] [address] GLOMERULAR FILTRATION RATE ML/MIN/1.73 SQ M.PREDICTED 18.6 mL/min/1.73m*2 Low >60.0 [facility] Comment on above: Result Comment: Calc ulation based on the Chronic Kidney Disease Epidemiology Collaboration (CKD-EPI) equation refit without adjustment for race Performed By: #### L AB15 ####Pin Setter: JULI JONES ([id number])[facility] ([facility])[address] [place] [address] [place] Glucose [Mass/Vol] 94 mg/dL Normal 74-100 [facility] Comment on above: Performed By: #### L AB15 ####Pin Setter: JULI JONES ([id number])[facility])[address] [place] [address] Potassium [Moles/Vol] 3.9 mmol/L Normal 3.5-5.1 [facility] Comment on above: Result Comment: [facility] potassium values may be up to 0.5 mmol/L lower than serum values. Performed By: #### L AB15 ####Pin Setter: JULI JONES ([id number])[facility])[address] [place] [address] [place] Sodium [Moles/Vol] 139 mmol/L Normal 136-145 [facility] Comment on above: Performed By: #### L AB15 ####Pin Setter: JULI JONES ([id number])[facility] [address] Urea nitrogen [Mass/Vol] 36 mg/dL High 9-23 [facility] Comment on above: Performed By: #### L AB15 ####Pin Setter: JULI JONES ([id number])[facility])[address] [place] [address] CBC WITH AUTO DIFFERENTIALon 10-05-2024 Basophils (Bld) [#/Vol] 0.0 10*3/uL Normal 0.0-0.2 [facility] Comment on above: Performed By: #### L [id number] ####Pin Setter: JULI JONES ([id number])[facility])[address] [place] [address] Basophils/100 WBC (Bld) 0.5 % Normal 0.0-2.0 [facility] Comment on above: Performed By: #### L [id number] ####Pin Setter: JULI JONES ([id number])[facility])[address] [place] [address] Eosinophils (Bld) [#/Vol] 0.3 10*3/uL Normal 0.0-0.5 [facility] Comment on above: Performed By: #### L [id number] ####Pin Setter: JULI JONES ([id number])[facility])[address] [place] [address] Eosinophils/100 WBC (Bld) 4.9 % Normal 0.0-6.0 [facility] Comment on above: Performed By: #### L [id number] ####Pin Setter: JULI JONES ([id number])[facility])[address] [place] [address] Erythrocyte distribution width (RBC) [Ratio] 14.3 % Normal 11.5-15.0 [facility] Comment on above: Performed By: #### L [id number] ####Pin Setter: JULI JONES ([id number])[facility])[address] [place] [address] Hematocrit (Bld) [Volume fraction] 28.5 % Low 35.0-47.0 [facility] Comment on above: Performed By: #### L [id number] ####Pin Setter: JULI JONES ([id number])[facility])[address] [place] [address] Hemoglobin (Bld) [Mass/Vol] 9.0 g/dL Low 11.7-16.0 [facility] Comment on above: Performed By: #### L [id number] ####Pin Setter: JULI JONES ([id number])[facility] ([facility])[address] [place] [address] IMMATURE GRANS % 0.2 % Normal 0.0-2.0 [facility] Comment on above: Performed By: #### L [id number] ####Pin Setter: JULI JONES ([id number])[facility])[address] [place] [address] IMMATURE GRANS ABSOLUTE 0.0 10*3/uL Normal <0.1 [facility] Comment on above: Performed By: #### L [id number] ####Pin Setter: JULI JONES ([id number])[facility])[address] [place] [address] Lymphocytes (Bld) [#/Vol] 2.4 10*3/uL Normal 1.0-4.3 [facility] Comment on above: Performed By: #### L [id number] ####Pin Setter: JULI JONES ([id number])[facility])[address] [place] [address] Lymphocytes/100 WBC (Bld) 38.8 % Normal 15.0-45.0 [facility] Comment on above: Performed By: #### L [id number] ####Pin Setter: JULI JONES ([id number])[facility])[address] [place] [address] MCH (RBC) [Entitic mass] 31.7 pg Normal 26.0-34.0 [facility] Comment on above: Performed By: #### L [id number] ####Pin Setter: JULI JONES ([id number])[facility] ([facility])[address] [place] [address] MCHC 31.6 % Normal 30.5-36.0 [facility] Comment on above: Performed By: #### L [id number] ####Pin Setter: JULI JONES ([id number])[facility])[address] [place] [address] MCV (RBC) [Entitic vol] 100.4 fL High 77.0-99.0 [facility] Comment on above: Performed By: #### L [id number] ####Pin Setter: JULI JONES ([id number])[facility])[address] [place] [address] Monocytes (Bld) [#/Vol] 0.6 10*3/uL Normal 0.0-0.9 [facility] Comment on above: Performed By: #### L [id number] ####Pin Setter: JULI JONES ([id number])[facility] ([facility])[address] [place] [address] Monocytes/100 WBC (Bld) 9.3 % Normal 5.0-13.0 [facility] Comment on above: Performed By: #### L [id number] ####Pin Setter: JULI JONES ([id number])[facility])[address] [place] [address] NEUTROPHILS ABSOLUTE 2.9 10*3/uL Normal 1.8-7.5 [facility] Comment on above: Performed By: #### L [id number] ####Pin Setter: JULI JONES ([id number])[facility])[address] [place] [address] Neutrophils/100 WBC (Bld) 46.3 % Normal 38.0-82.0 [facility] Comment on above: Performed By: #### L [id number] ####Pin Setter: JULI JONES ([id number])[facility])[address] [place] [address] NRBC 0.0 /100 WBCs Normal 0.0-2.0 [facility] Comment on above: Performed By: #### L [id number] ####Pin Setter: JULI JONES ([id number])[facility] ([facility])[address] [place] [address] Platelet mean volume (Bld) [Entitic vol] 9.5 fL Normal 9.0-12.7 [facility] Comment on above: Performed By: #### L [id number] ####Pin Setter: JULI JONES ([id number])[facility] ([facility])[address] [place] [address] Platelets (Bld) [#/Vol] 202 10*3/uL Normal 140-440 [facility] Comment on above: Performed By: #### L [id number] ####Pin Setter: JULI JONES ([id number])[facility] ([facility])[address] [place] [address] RBC (Bld) [#/Vol] 2.84 10*6/uL Low 3.80-5.20 [facility] Comment on above: Performed By: #### L [id number] ####Pin Setter: JULI JONES ([id number])[facility] ([facility])[address] [place] [address] WBC (Bld) [#/Vol] 6.2 10*3/uL Normal 3.6-10.7 [facility] Comment on above: Performed By: #### L [id number] ####Pin Setter: JULI JONES ([id number])[facility] ([facility])[address] [place] [address] Consulton 10-05-2024 Consult Normal [facility] Progress Noteon 10-05-2024 Progress Note Normal [facility] Progress Note Normal [facility] 30on 10-04-2024 30 Normal [facility] [id number] 10-04-2024 [id number] Normal [facility] [id number] Normal [facility] CBC WITH AUTO DIFFERENTIALon 10-04-2024 Basophils (Bld) [#/Vol] 0.0 10*3/uL Normal 0.0-0.2 [facility] Comment on above: Performed By: #### L [id number] ####Pin Setter: JULI JONES ([id number])[facility])[address] [place] [address] Basophils/100 WBC (Bld) 0.5 % Normal 0.0-2.0 [facility] Comment on above: Performed By: #### L [id number] ####Pin Setter: JULI JONES ([id number])[facility])[address] [place] [address] Eosinophils (Bld) [#/Vol] 0.2 10*3/uL Normal 0.0-0.5 [facility] Comment on above: Performed By: #### L [id number] ####Pin Setter: JULI JONES ([id number])[facility])[address] [place] [address] Eosinophils/100 WBC (Bld) 4.1 % Normal 0.0-6.0 [facility] Comment on above: Performed By: #### L [id number] ####Pin Setter: JULI JONES ([id number])[facility])[address] [place] [address] Erythrocyte distribution width (RBC) [Ratio] 14.5 % Normal 11.5-15.0 [facility] Comment on above: Performed By: #### L [id number] ####Pin Setter: JULI JONES ([id number])[facility])[address] [place] [address] Hematocrit (Bld) [Volume fraction] 28.3 % Low 35.0-47.0 [facility] Comment on above: Performed By: #### L [id number] ####Pin Setter: JULI JONES ([id number])[facility])[address] [place] [address] Hemoglobin (Bld) [Mass/Vol] 8.8 g/dL Low 11.7-16.0 [facility] Comment on above: Performed By: #### L [id number] ####Pin Setter: JULI JONES ([id number])[facility])[address] [place] [address] IMMATURE GRANS % 0.2 % Normal 0.0-2.0 [facility] Comment on above: Performed By: #### L [id number] ####Pin Setter: JULI JONES ([id number])[facility])[address] [place] [address] IMMATURE GRANS ABSOLUTE 0.0 10*3/uL Normal <0.1 [facility] Comment on above: Performed By: #### L [id number] ####Pin Setter: JULI JONES ([id number])[address] Lymphocytes (Bld) [#/Vol] 2.3 10*3/uL Normal 1.0-4.3 [facility] Comment on above: Performed By: #### L [id number] ####Pin Setter: JULI JONES ([id number])[address] Lymphocytes/100 WBC (Bld) 39.4 % Normal 15.0-45.0 [facility] Comment on above: Performed By: #### L [id number] ####Pin Setter: JULI JONES ([id number])[facility])[address] [place] [address] MCH (RBC) [Entitic mass] 31.2 pg Normal 26.0-34.0 [facility] Comment on above: Performed By: #### L [id number] ####Pin Setter: JULI JONES ([id number])[facility])[address] [place] [address] MCHC 31.1 % Normal 30.5-36.0 [facility] Comment on above: Performed By: #### L [id number] ####Pin Setter: JULI JONES ([id number])[facility] ([facility])[address] [place] [address] MCV (RBC) [Entitic vol] 100.4 fL High 77.0-99.0 [facility] Comment on above: Performed By: #### L [id number] ####Pin Setter: JULI JONES ([id number])[facility] ([facility])[address] [place] [address] Monocytes (Bld) [#/Vol] 0.7 10*3/uL Normal 0.0-0.9 [facility] Comment on above: Performed By: #### L [id number] ####Pin Setter: JULI JONES ([id number])[facility] ([facility])[address] [place] [address] Monocytes/100 WBC (Bld) 12.1 % Normal 5.0-13.0 [facility] Comment on above: Performed By: #### L [id number] ####Pin Setter: JULI JONES ([id number])[facility] ([facility])[address] [place] [address] NEUTROPHILS ABSOLUTE 2.5 10*3/uL Normal 1.8-7.5 [facility] Comment on above: Performed By: #### L [id number] ####Pin Setter: JULI JONES ([id number])[facility] ([facility])[address] [place] [address] Neutrophils/100 WBC (Bld) 43.7 % Normal 38.0-82.0 [facility] Comment on above: Performed By: #### L [id number] ####Pin Setter: JULI JONES ([id number])[facility])[address] [place] [address] [place] NRBC 0.0 /100 WBCs Normal 0.0-2.0 [facility] Comment on above: Performed By: #### L [id number] ####Pin Setter: JULI JONES ([id number])[facility] ([facility])[address] [place] [address] Platelet mean volume (Bld) [Entitic vol] 9.2 fL Normal 9.0-12.7 [facility] Comment on above: Performed By: #### L [id number] ####Pin Setter: JULI JONES ([id number])[facility])[address] [place] [address] Platelets (Bld) [#/Vol] 192 10*3/uL Normal 140-440 [facility] Comment on above: Performed By: #### L [id number] ####Pin Setter: JULI JONES ([id number])[facility])[address] [place] [address] RBC (Bld) [#/Vol] 2.82 10*6/uL Low 3.80-5.20 [facility] Comment on above: Performed By: #### L [id number] ####Pin Setter: JULI JONES ([id number])[facility])[address] [place] [address] WBC (Bld) [#/Vol] 5.8 10*3/uL Normal 3.6-10.7 [facility] Comment on above: Performed By: #### L [id number] ####Pin Setter: JULI JONES ([id number])[facility])[address] [place] [address] Consulton 10-04-2024 Consult Normal [facility] Consult Normal [facility] FERRITINon 10-04-2024 Ferritin [Mass/Vol] 254 ng/mL High 5-204 [facility] Comment on above: Result Comment: ORDE R COMMENTS:Ferritin levels below 10 ng/mL have been reported as indicative of iron deficiency anemia. Performed By: #### L AB68, LAB19 ####Pin Setter: JULI JONES ([id number])[facility])[address] [place] [address] IRON AND TIBCon 10-04-2024 IRON BINDING CAPACITY 182 ug/dL Low 250-450 [facility] Comment on above: Performed By: #### L [id number] ####Pin Setter: JULI JONES ([id number])[facility] ([facility])[address] [place] [address] IRON SATURATION 18.1 % Low 20.0-50.0 [facility] Comment on above: Performed By: #### L [id number] ####Pin Setter: JULI JONES ([id number])[facility] ([facility])[address] [place] [address] IRON, TOTAL 33 ug/dL Low 50-170 [facility] Comment on above: Performed By: #### L [id number] ####Pin Setter: JULI JONES ([id number])[facility] ([facility])[address] [place] [address] Medical Studenton 10-04-2024 Medical Student Normal [facility] Progress Noteon 10-04-2024 Progress Note Normal [facility] Progress Note Normal [facility] Progress Note Normal [facility] Progress Note Normal [facility] RENAL FUNCTION PANELon 10-04 Albumin [Mass/Vol] 2.8 g/dL Low 3.5-5.0 [facility] Comment on above: Performed By: #### L AB68, LAB19 ####Pin Setter: JULI JONES ([id number])[facility] ([facility])[address] [place] [address] Anion gap [Moles/Vol] 10 mmol/L Normal 3-13 [facility] Comment on above: Performed By: #### L AB68, LAB19 ####Pin Setter: JULI JONES ([id number])[facility] ([facility])[address] [place] [address] Calcium [Mass/Vol] 8.9 mg/dL Normal 8.4-10.2 [facility] Comment on above: Performed By: #### L AB68, LAB19 ####Pin Setter: JULI JONES ([id number])[facility] ([facility])[address] [place] [address] Chloride [Moles/Vol] 106 mmol/L Normal 98-107 [facility] Comment on above: Performed By: #### L AB68, LAB19 ####Pin Setter: JULI JONES ([id number])[facility])[address] [place] [address] CO2 [Moles/Vol] 24 mmol/L Normal 22-29 [facility] Comment on above: Performed By: #### L ABFei, LAB19 ####Pin Setter: JULI JONES ([id number])[facility])[address] [place] [address] Creatinine [Mass/Vol] 2.93 mg/dL High 0.57-1.11 [facility] Comment on above: Performed By: #### Kesha READ, LAB19 ####Pin Setter: JULI JONES ([id number])[facility])[address] [place] [address] GLOMERULAR FILTRATION RATE ML/MIN/1.73 SQ M.PREDICTED 18.1 mL/min/1.73m*2 Low >60.0 [facility] Comment on above: Result Comment: Calc ulation based on the Chronic Kidney Disease Epidemiology Collaboration (CKD-EPI) equation refit without adjustment for race Performed By: #### L JACEK, LAB19 ####Pin Setter: JULI JONES ([id number])[facility] ([facility])[address] [place] [address] [place] Glucose [Mass/Vol] 78 mg/dL Normal 74-100 [facility] Comment on above: Performed By: #### L ABFei, LAB19 ####Pin Setter: JULI JONES ([id number])[facility])[address] [place] [address] [place] Phosphate [Mass/Vol] 3.6 mg/dL Normal 2.3-4.7 [facility] Comment on above: Performed By: #### L AB68, LAB19 ####Pin Setter: JULI JONES ([id number])[facility])[address] [place] [address] [place] Potassium [Moles/Vol] 3.8 mmol/L Normal 3.5-5.1 [facility] Comment on above: Result Comment: [facility] potassium values may be up to 0.5 mmol/L lower than serum values. Performed By: #### L AB68, LAB19 ####Pin Setter: JULI JONES ([id number])[facility] ([facility])[address] [place] [address] Sodium [Moles/Vol] 140 mmol/L Normal 136-145 [facility] Comment on above: Performed By: #### L AB68, LAB19 ####Pin Setter: JULI JONES ([id number])[facility] ([facility])[address] [place] [address] Urea nitrogen [Mass/Vol] 37 mg/dL High 9-23 [facility] Comment on above: Performed By: #### L AB68, LAB19 ####Pin Setter: JULI JONES ([id number])[facility] ([facility])[address] [place] [address] 30on 10-03-2024 30 Normal [facility] CBC WITH AUTO DIFFERENTIALon 10-03-2024 Basophils (Bld) [#/Vol] 0.0 10*3/uL Normal 0.0-0.2 [facility] Comment on above: Performed By: #### L [id number] ####Pin Setter: JULI JONES ([id number])[facility] ([facility])[address] [place] [address] Basophils/100 WBC (Bld) 0.1 % Normal 0.0-2.0 [facility] Comment on above: Performed By: #### L [id number] ####Pin Setter: JULI JONES ([id number])[facility])[address] [place] [address] Eosinophils (Bld) [#/Vol] 0.2 10*3/uL Normal 0.0-0.5 [facility] Comment on above: Performed By: #### L [id number] ####Pin Setter: JULI [id number])[facility])[address] [place] [address] Eosinophils/100 WBC (Bld) 3.4 % Normal 0.0-6.0 [facility] Comment on above: Performed By: #### L [id number] ####Pin Setter: JULI JONES ([id number])[facility])[address] [place] [address] Erythrocyte distribution width (RBC) [Ratio] 14.6 % Normal 11.5-15.0 [facility] Comment on above: Performed By: #### L [id number] ####Pin Setter: JULI JONES ([id number])[facility])[address] [place] [address] Hematocrit (Bld) [Volume fraction] 30.9 % Low 35.0-47.0 [facility] Comment on above: Performed By: #### L [id number] ####Pin Setter: JULI JONES ([id number])[facility])[address] [place] [address] Hemoglobin (Bld) [Mass/Vol] 9.7 g/dL Low 11.7-16.0 [facility] Comment on above: Performed By: #### L [id number] ####Pin Setter: JULI JONES ([id number])[facility])[address] [place] [address] IMMATURE GRANS % 0.4 % Normal 0.0-2.0 [facility] Comment on above: Performed By: #### L [id number] ####Pin Setter: JULI JONES ([id number])[facility])[address] [place] [address] IMMATURE GRANS ABSOLUTE 0.0 10*3/uL Normal <0.1 [facility] Comment on above: Performed By: #### L [id number] ####Pin Setter: JULI JONES ([id number])[facility])[address] [place] [address] [place] Lymphocytes (Bld) [#/Vol] 1.8 10*3/uL Normal 1.0-4.3 [facility] Comment on above: Performed By: #### L [id number] ####Pin Setter: JULI JONES ([id number])[facility])[address] [place] [address] Lymphocytes/100 WBC (Bld) 26.1 % Normal 15.0-45.0 [facility] Comment on above: Performed By: #### L [id number] ####Pin Setter: JULI JONES ([id number])[facility])[address] [place] [address] MCH (RBC) [Entitic mass] 31.7 pg Normal 26.0-34.0 [facility] [facility] Comment on above: Performed By: #### L [id number] ####Pin Setter: JULI JONES ([id number])[facility])[address] [place] [address] MCHC 31.4 % Normal 30.5-36.0 [facility] Comment on above: Performed By: #### L [id number] ####Pin Setter: JULI JONES ([id number])[facility])[address] [place] [address] MCV (RBC) [Entitic vol] 101.0 fL High 77.0-99.0 [facility] Comment on above: Performed By: #### L [id number] ####Pin Setter: JULI JONES ([id number])[facility])[address] [place] [address] Monocytes (Bld) [#/Vol] 0.7 10*3/uL Normal 0.0-0.9 [facility] Comment on above: Performed By: #### L [id number] ####Pin Setter: JULI JONES ([id number])[facility])[address] [place] [address] Monocytes/100 WBC (Bld) 10.7 % Normal 5.0-13.0 [facility] Comment on above: Performed By: #### L [id number] ####Pin Setter: JULI JONES ([id number])[facility] ([facility])[address] [place] [address] NEUTROPHILS ABSOLUTE 4.0 10*3/uL Normal 1.8-7.5 [facility] Comment on above: Performed By: #### L [id number] ####Pin Setter: JULI JONES ([id number])[facility] ([facility])[address] [place] [address] Neutrophils/100 WBC (Bld) 59.3 % Normal 38.0-82.0 [facility] Comment on above: Performed By: #### L [id number] ####Pin Setter: JULI JONES ([id number])[facility])[address] [place] [address] NRBC 0.0 /100 WBCs Normal 0.0-2.0 [facility] Comment on above: Performed By: #### L [id number] ####Pin Setter: JULI JONES ([id number])[facility] ([facility])[address] [place] [address] Platelet mean volume (Bld) [Entitic vol] 9.5 fL Normal 9.0-12.7 [facility] Comment on above: Performed By: #### L [id number] ####Pin Setter: JULI JONES ([id number])[facility] ([facility])[address] [place] [address] Platelets (Bld) [#/Vol] 218 10*3/uL Normal 140-440 [facility] Comment on above: Performed By: #### L [id number] ####Pin Setter: JULI JONES ([id number])[facility] ([facility])[address] [place] [address] RBC (Bld) [#/Vol] 3.06 10*6/uL Low 3.80-5.20 [facility] Comment on above: Performed By: #### L [id number] ####Pin Setter: JULI JONES ([id number])[facility])[address] [place] [address] WBC (Bld) [#/Vol] 6.8 10*3/uL Normal 3.6-10.7 [facility] Comment on above: Performed By: #### L [id number] ####Pin Setter: JULI JONES ([id number])[facility])[address] [place] [address] ED Nursing Noteon 10-03-2024 ED Nursing Note EMS here and report given. Pt transferred to EMS cot with 5 people helping. Normal [facility] ED Nursing Note Provided patient wit h beverage. Patient has no further needs Normal [facility] ED Nursing Note Patient resting comfortably. Respirations even and non-labored. Normal [facility] ED Nursing Note Patient provided wit h a warm blanket. Patient denies any additional needs at this time. Normal [facility] OSMOLALITY, SERUMon 10-03-19 25 OSMOLALITY, SERUM 303 mOsm/kg High 280-300 [facility] Comment on above: Order Comment: Pleas e collect and send urine and serum labs together Performed By: #### L [id number] ####Pin Setter: JULI JONES ([id number])[address] OSMOLALITY, URINEon 10-03-19 25 OSMOLALITY, URINE 153 mOsm/kg Low 300-1000 [facility] Comment on above: Order Comment: Pleas e collect and send urine and serum labs together Performed By: #### L AB748, [id number], [id number] ####Pin Setter: JULI JONES ([id number])[address] PROTEIN, URINE, RANDOMon Protein (U) [Mass/Vol] 37 mg/dL High <14 [facility] Comment on above: Performed By: #### L [id number], [id number], KDS146 ####Pin Setter: JULI JONES ([id number])[address] Progress Noteon 10-03-2024 Progress Note OCCUPATIONAL THERAPY [facility] Name/MRN: Jessy Mckeon ([id number]) Date: 10/03/2024 Attempted to see pt for OT eval but pt declining at this time. Will continue to follow as schedule permits. Meera Michel, OT Normal [facility] Progress Note Normal [facility] RENAL FUNCTION PANELon 10-03 Albumin [Mass/Vol] 2.8 g/dL Low 3.5-5.0 [facility] Comment on above: Performed By: #### L AB19 ####Pin Setter: JULI JONES ([id number])[facility])[address] [place] [address] Anion gap [Moles/Vol] 11 mmol/L Normal 3-13 [facility] Comment on above: Performed By: #### L AB19 ####Pin Setter: JULI JONES ([id number])[facility])[address] [place] [address] Calcium [Mass/Vol] 8.5 mg/dL Normal 8.4-10.2 [facility] Comment on above: Performed By: #### L AB19 ####Pin Setter: JULI JONES ([id number])[facility])[address] [place] [address] Chloride [Moles/Vol] 106 mmol/L Normal 98-107 [facility] Comment on above: Performed By: #### L AB19 ####Pin Setter: JULI JONES ([id number])[facility])[address] [place] [address] CO2 [Moles/Vol] 21 mmol/L Low 22-29 [facility] Comment on above: Performed By: #### L AB19 ####Pin Setter: JULI JONES ([id number])[facility])[address] [place] [address] Creatinine [Mass/Vol] 3.07 mg/dL High 0.57-1.11 [facility] Comment on above: Performed By: #### L AB19 ####Pin Setter: JULI JONES ([id number])[facility] ([facility])[address] [place] [address] [place] GLOMERULAR FILTRATION RATE ML/MIN/1.73 SQ M.PREDICTED 17.1 mL/min/1.73m*2 Low >60.0 [facility] Comment on above: Result Comment: Calc ulation based on the Chronic Kidney Disease Epidemiology Collaboration (CKD-EPI) equation refit without adjustment for race Performed By: #### L AB19 ####Pin Setter: JULI JONES ([id number])[facility] ([facility])[address] [place] [address] [place] Glucose [Mass/Vol] 83 mg/dL Normal 74-100 [facility] Comment on above: Performed By: #### L AB19 ####Pin Setter: JULI JONES ([id number])[facility])[address] [place] [address] [place] Phosphate [Mass/Vol] 4.2 mg/dL Normal 2.3-4.7 [facility] Comment on above: Performed By: #### L AB19 ####Pin Setter: JULI JONES ([id number])[facility])[address] [place] [address] [place] Potassium [Moles/Vol] 3.9 mmol/L Normal 3.5-5.1 [facility] Comment on above: Result Comment: [facility] potassium values may be up to 0.5 mmol/L lower than serum values. Performed By: #### L AB19 ####Pin Setter: JULI JONES ([id number])[facility])[address] [place] [address] [place] Sodium [Moles/Vol] 138 mmol/L Normal 136-145 [facility] Comment on above: Performed By: #### L AB19 ####Pin Setter: JULI JONES ([id number])[facility])[address] [place] [address] [place] Urea nitrogen [Mass/Vol] 37 mg/dL High 9-23 [facility] Comment on above: Performed By: #### L AB19 ####Pin Setter: JULI JONES ([id number])[facility])[address] [place] [address] [place] UREA NITROGEN, URINEon 10-03 CREATININE, URINE 33.7 mg/dL Low 47.0-110.0 [facility] Comment on above: Performed By: #### L AB748, UUW011, [id number] ####Pin Setter: JULI JONES ([id number])[facility])[address] [place] [address] UREA (BUN), URINE, FRACTIONAL EXCRETION 53.4 Normal [facility] Comment on above: Result Comment: Frac tional excretion of urea under 35% is consistent with a prerenal cause. Performed By: #### L AB748, UQS683, [id number] ####Pin Setter: JULI JONES ([id number])[facility])[address] [place] [address] UREA (BUN), URINE, TUBULAR REABSORPTION 0.5 Normal [facility] Comment on above: Performed By: #### L AB748, [id number], [id number] ####Pin Setter: JULI JONES ([id number])[facility])[address] [place] [address] UREA NITROGEN, URINE 217 mg/dL Normal [facility] Comment on above: Performed By: #### L AB748, IJP653, [id number] ####Pin Setter: JULI JONES ([id number])[facility])[address] [place] [address] VASC US LOWER EXTREMITY VENO US DUPLEX BILATERALon 10-03-2024 VASC US LOWER EXTREMITY VENOUS DUPLEX BILATERAL Normal [facility] 36on 10-02-2024 36 Talked to patient an d relayed message from doctor and she will call for an ambulance to go to the ER. Normal [facility] 36 Advise go to ER Normal [facility] 36 Normal [facility] CBC WITH AUTO DIFFERENTIALon 10-02-2024 Basophils (Bld) [#/Vol] 0.0 10*3/uL Normal 0.0-0.2 [facility] Comment on above: Performed By: #### L [id number] ####Pin Setter: JULI JONES ([id number])[facility])[address] [place] [address] [place] Basophils/100 WBC (Bld) 0.3 % Normal 0.0-2.0 [facility] Comment on above: Performed By: #### L [id number] ####Pin Setter: JULI JONES ([id number])[facility])[address] [place] [address] [place] Eosinophils (Bld) [#/Vol] 0.3 10*3/uL Normal 0.0-0.5 [facility] Comment on above: Performed By: #### L [id number] ####Pin Setter: JULI JONES ([id number])[facility] ([facility])[address] [place] [address] [place] Eosinophils/100 WBC (Bld) 3.5 % Normal 0.0-6.0 [facility] Comment on above: Performed By: #### L [id number] ####Pin Setter: JULI JONES ([id number])[facility] ([facility])[address] [place] [address] Erythrocyte distribution width (RBC) [Ratio] 14.6 % Normal 11.5-15.0 [facility] Comment on above: Performed By: #### L [id number] ####Pin Setter: JULI JONES ([id number])[facility] ([facility])[address] [place] [address] Hematocrit (Bld) [Volume fraction] 28.0 % Low 35.0-47.0 [facility] Comment on above: Performed By: #### L [id number] ####Pin Setter: JULI JONES ([id number])[facility])[address] [place] [address] Hemoglobin (Bld) [Mass/Vol] 9.0 g/dL Low 11.7-16.0 [facility] Comment on above: Performed By: #### L [id number] ####Pin Setter: JULI JONES ([id number])[facility] ([facility])[address] [place] [address] IMMATURE GRANS % 0.3 % Normal 0.0-2.0 [facility] Comment on above: Performed By: #### L [id number] ####Pin Setter: JULI JONES ([id number])[facility] ([facility])[address] [place] [address] IMMATURE GRANS ABSOLUTE 0.0 10*3/uL Normal <0.1 [facility] Comment on above: Performed By: #### L [id number] ####Pin Setter: JULI JONES ([id number])[facility] ([facility])[address] [place] [address] Lymphocytes (Bld) [#/Vol] 1.1 10*3/uL Normal 1.0-4.3 [facility] Comment on above: Performed By: #### L [id number] ####Pin Setter: JULI JONES ([id number])[facility] ([facility])[address] [place] [address] Lymphocytes/100 WBC (Bld) 15.5 % Normal 15.0-45.0 [facility] Comment on above: Performed By: #### L [id number] ####Pin Setter: JULI JONES ([id number])[facility] ([facility])[address] [place] [address] MCH (RBC) [Entitic mass] 32.4 pg Normal 26.0-34.0 [facility] Comment on above: Performed By: #### L [id number] ####Pin Setter: JULI JONES ([id number])[facility])[address] [place] [address] MCHC 32.1 % Normal 30.5-36.0 [facility] Comment on above: Performed By: #### L [id number] ####Pin Setter: JULI JONES ([id number])[facility] ([facility])[address] [place] [address] MCV (RBC) [Entitic vol] 100.7 fL High 77.0-99.0 [facility] Comment on above: Performed By: #### L [id number] ####Pin Setter: JULI JONES ([id number])[facility] ([facility])[address] [place] [address] Monocytes (Bld) [#/Vol] 0.9 10*3/uL Normal 0.0-0.9 [facility] Comment on above: Performed By: #### L [id number] ####Pin Setter: JLUI JONES ([id number])[facility] ([facility])[address] [place] [address] [place] Monocytes/100 WBC (Bld) 12.5 % Normal 5.0-13.0 [facility] Comment on above: Performed By: #### L [id number] ####Pin Setter: JULI JONES ([id number])[facility] ([facility])[address] [place] [address] [place] NEUTROPHILS ABSOLUTE 4.9 10*3/uL Normal 1.8-7.5 [facility] Comment on above: Performed By: #### L [id number] ####Pin Setter: JULI JONES ([id number])[facility] ([facility])[address] [place] [address] Neutrophils/100 WBC (Bld) 67.9 % Normal 38.0-82.0 [facility] Comment on above: Performed By: #### L [id number] ####Pin Setter: JULI JONES ([id number])[facility] ([facility])[address] NRBC 0.0 /100 WBCs Normal 0.0-2.0 [facility] Comment on above: Performed By: #### L [id number] ####Pin Setter: JULI JONES ([id number])[facility]ITALJ[facility] ([facility])[address] [place] [address] Platelet mean volume (Bld) [Entitic vol] 9.3 fL Normal 9.0-12.7 [facility] Comment on above: Result Comment: MPV is a calculated measurement using platelet volume ratio Performed By: #### L [id number] ####Pin Setter: JULI JONES ([id number])[facility]LE[facility] ([facility])[address] [place] [address] [place] Platelets (Bld) [#/Vol] 202 10*3/uL Normal 140-440 [facility] Comment on above: Performed By: #### L [id number] ####Pin Setter: JULI JONES ([id number])[facility] ([facility])[address] [place] [address] RBC (Bld) [#/Vol] 2.78 10*6/uL Low 3.80-5.20 [facility] Comment on above: Performed By: #### L [id number] ####Pin Setter: JULI JONES ([id number])[facility] ([facility])[address] [place] [address] [place] WBC (Bld) [#/Vol] 7.2 10*3/uL Normal 3.6-10.7 [facility] Comment on above: Performed By: #### L [id number] ####Pin Setter: JULI JONES ([id number])[facility] ([facility])[address] [place] [address] COMPLETE URINALYSISon 2024 BACTERIA (#/HPF) IN URINE Few Abnormal Negative [facility] Comment on above: Performed By: #### L [id number] ####Pin Setter: JULI JONES ([id number])[facility] ([facility])[address] [place] [address] BILIRUBIN, TOTAL PRESENCE IN URINE Negative Normal Negative [facility] Comment on above: Performed By: #### L [id number] ####Pin Setter: JULI JONES ([id number])[facility] ([facility])[address] [place] [address] Clarity (U) Clear Normal Clear [facility] Comment on above: Performed By: #### L [id number] ####Pin Setter: JULI JONES ([id number])[facility] ([facility])[address] [place] [address] Color (U) Colorless Normal Lt. Yellow [facility] Comment on above: Performed By: #### L [id number] ####Pin Setter: JULI JONES ([id number])[facility] ([facility])[address] [place] [address] [place] GLUCOSE (MG/DL) IN URINE Normal Normal Normal (<70) [facility] Comment on above: Performed By: #### L [id number] ####Pin Setter: JULI JONES ([id number])[facility] ([facility])[address] [place] [address] [place] HEMOGLOBIN PRESENCE IN URINE Negative Normal Negative [facility] Comment on above: Performed By: #### L [id number] ####Pin Setter: JULI JONES ([id number])[facility] ([facility])[address] [place] [address] [place] Ketones Ql (U) Negative Normal Negative [facility] Comment on above: Performed By: #### L [id number] ####Pin Setter: JULI JONES ([id number])[facility] ([facility])[address] [place] [address] [place] LEUKOCYTE ESTERASE PRESENCE IN URINE BY TEST STRIP Negative Normal Negative [facility] Comment on above: Performed By: #### L [id number] ####Pin Setter: JULI JONES ([id number])[facility] ([facility])[address] NITRITE PRESENCE IN URINE Negative Normal Negative [facility] Comment on above: Performed By: #### L [id number] ####Pin Setter: JULI JONES ([id number])[facility] ([facility])[address] pH (U) 5.0 [pH] Normal 5.0-8.0 [facility] Comment on above: Performed By: #### L AB347 ####Pin Setter: JULI JONES ([id number])[facility]ITALJ[facility] ([facility])[address] [place] [address] Protein (U) [Mass/Vol] 10 mg/dL Abnormal Negative [facility] Comment on above: Performed By: #### L AB347 ####Pin Setter: JULI JONES ([id number])[facility]ITALJ[facility] ([facility])[address] [place] [address] RBC (#/HPF) IN URINE SEDIMENT Negative Normal 0-2 [facility] Comment on above: Performed By: #### L AB347 ####Pin Setter: JULI JONES ([id number])[facility] ([facility])[address] [place] [address] Specific gravity (U) [Rel density] 1.004 Low 1.005-1.03 0 [facility] Comment on above: Performed By: #### L [id number] ####Pin Setter: JULI JONES ([id number])[facility]ITALJ[facility] ([facility])[address] [place] [address] [place] Specimen volume (U) 12 mL Normal [facility] Comment on above: Performed By: #### L AB347 ####Pin Setter: JULI JONES ([id number])[facility]ITALJ[facility] ([facility])[address] [place] [address] SQUAMOUS EPITHELIAL CELLS (#/HPF) IN URINE SEDIMENT Negative Normal 3-5 [facility] Comment on above: Performed By: #### L [id number] ####Pin Setter: JULI JONES ([id number])[facility]ITALJ[facility] ([facility])[address] UROBILINOGEN (MG/DL) IN URINE Normal Normal Normal (0-1) [facility] Comment on above: Performed By: #### L AB347 ####Pin Setter: JULI JONES ([id number])[facility]ITALJ[facility] ([facility])[address] [place] [address] [place] WBC (LEUKOCYTE) (#/HPF) IN URINE SEDIMENT Negative Normal 0-5 [facility] Comment on above: Performed By: #### L [id number] ####Pin Setter: JULI JONES ([id number])[facility]ITALJ[facility] ([facility])[address] [place] [address] [address]PREHENSIVE METABOLIC PANE Nestor 10-02-2024 Albumin [Mass/Vol] 3.2 g/dL Low 3.5-5.0 [facility] Comment on above: Performed By: #### L AB17, [id number] ####Pin Setter: JULI JONES ([id number])[facility]ITALJ[facility] ([facility])[address] [place] [address] [place] ALP [Catalytic activity/Vol] 59 U/L Normal 40-150 [facility] Comment on above: Performed By: #### L AB17, [id number] ####Pin Setter: JULI JONES ([id number])[facility]ITALJ[facility]anny MATOSROSAL[facility] ([facility])[address] [place] [address] [place] ALT [Catalytic activity/Vol] U/L Normal <30 [facility] Comment on above: Performed By: #### L AB17, [id number] ####Pin Setter: JULI JONES ([id number])[facility]ITALJ[facility] ([facility])[address] [place] [address] Anion gap [Moles/Vol] 10 mmol/L Normal 3-13 [facility] Comment on above: Performed By: #### L AB17, [id number] ####Pin Setter: JULI JONES ([id number])[facility]ITALJ[facility] ([facility])[address] [place] [address] [place] AST [Catalytic activity/Vol] 17 U/L Normal <34 [facility] Comment on above: Performed By: #### L AB17, [id number] ####Pin Setter: JULI JONES ([id number])[facility]ITALJ[facility] ([facility])[address] [place] [address] [place] Bilirubin [Mass/Vol] 0.3 mg/dL Normal <1.2 [facility] Comment on above: Performed By: #### L AB17, [id number] ####Pin Setter: JULI JONES ([id number])[facility]ITALJ[facility] ([facility])[address] [place] [address] [place] Calcium [Mass/Vol] 9.0 mg/dL Normal 8.4-10.2 [facility] Comment on above: Performed By: #### L AB17, KHC235 ####Pin Setter: JULI JONES ([id number])[facility]ITALJ[facility] ([facility])[address] [place] [address] [place] Chloride [Moles/Vol] 102 mmol/L Normal 98-107 [facility] Comment on above: Performed By: #### L AB17, [id number] ####Pin Setter: JULI JONES ([id number])[facility]ITALJ[facility]anny MATOSROSALIE [facility] ([facility])[address] [place] [address] [place] CO2 [Moles/Vol] 22 mmol/L Normal 22-29 [facility] Comment on above: Performed By: #### L AB17, [id number] ####Pin Setter: JULI JONES ([id number])[facility]ITALJ[facility]anny WIGGINS RITTMAN (SWRLAB)[address] [place] [address] [place] Creatinine [Mass/Vol] 3.22 mg/dL High 0.57-1.11 [facility] Comment on above: Performed By: #### L AB17, [id number] ####Pin Setter: JULI JONES ([id number])[facility]ITALJ[facility] WIGGINS RITTMAN (SWRLAB)[address] [place] [address] [place] GLOMERULAR FILTRATION RATE ML/MIN/1.73 SQ M.PREDICTED 16.2 mL/min/1.73m*2 Low >60.0 [facility] Comment on above: Result Comment: Calc ulation based on the Chronic Kidney Disease Epidemiology Collaboration (CKD-EPI) equation refit without adjustment for race Performed By: #### L AB17, [id number] ####Pin Setter: JULI JONES ([id number])[facility]ITALJohanny WIGGINS RITTMAN (SWRLAB)[address] [place] [address] [place] Glucose [Mass/Vol] 107 mg/dL High 74-100 [facility] Comment on above: Performed By: #### L AB17, [id number] ####Pin Setter: JULI JONES ([id number])[facility]ITALJ[facility]anny WIGGINS RITTMAN (SWRLAB)[address] [place] [address] [place] Potassium [Moles/Vol] 3.8 mmol/L Normal 3.5-5.1 [facility] Comment on above: Result Comment: [facility] potassium values may be up to 0.5 mmol/L lower than serum values. Performed By: #### L AB17, [id number] ####Pin Setter: JULI JONES ([id number])[facility]ITALJohanny WIGGINS RITTMAN (SWRLAB)[address] [place] [address] [place] Protein [Mass/Vol] 6.8 g/dL Normal 6.4-8.3 [facility] Comment on above: Performed By: #### L AB17, [id number] ####Pin Setter: JULI JONES ([id number])[facility]ITALJohanny WIGGINS RITTMAN (SWRLAB)[address] [place] [address] Sodium [Moles/Vol] 134 mmol/L Low 136-145 [facility] Comment on above: Performed By: #### L AB17, [id number] ####Pin Setter: JULI JONES ([id number])[facility]ITALJ[facility]anny WIGGINS RITTMAN (SWRLAB)[address] [place] [address] Urea nitrogen [Mass/Vol] 39 mg/dL High 9-23 [facility] Comment on above: Performed By: #### L AB17, [id number] ####Pin Setter: JULI JONES ([id number])[facility]ITALJohanny DELVALLETMAN (SWRLAB)[address] [place] [address] ED Nursing Noteon 10-02-2024 ED Nursing Note Patient given phone. Patient denies any additional needs. Normal [facility] ED Nursing Note Pt off of bedpan. No stool. States she was just passing gas. Awaits admit bed Normal [facility] ED Nursing Note Pt placed on bedpan for BM. Call light in reach Normal [facility] ED Nursing Note Infante emptied for 10 00cc prior to Lasix administration. Normal [facility] ED Nursing Note Pt placed in hospital gown Normal [facility] ED Nursing Note Attempted bladder sc an. Pt unable to tolerate. States she is going to "wet all over" and wants the catheter right now! Normal [facility] ED Nursing Note Normal [facility] ED Provider Noteon ED Provider Note Normal [facility] NT PRO BNPon 10-02-2024 Natriuretic peptide B (Bld) [Mass/Vol] 2097 pg/mL High <125 [facility] Comment on above: Performed By: #### L AB17, [id number] ####Pin Setter: JULI JONES ([id number])[facility]ITALJohanny DELVALLETMAN (SWRLAB)[address] Progress Noteon 09-18-2024 Progress Note [facility] 36on 09-14-2024 36 Please clarify the r efill amount for Jessy.s Klonopin. Notes states 60 days duration but there are 5 refills. [facility] Progress Noteon 09-14-2024 Progress Note [facility] 36on 09-13-2024 36 [facility] 36 Refill: Klonopin and Risperidone New pharmacy for [facility] 36 [facility] 36on 09-06-2024 36 [facility] 36 Jessy called asking if she is suppose to be taking her Cymbalta. She doesn't see it in the pills she is getting at the assisted living facility. [facility] Progress Noteon 09-04-2024 Progress Note Chart reviewed, 3rd attempt to contact patient for transitional program. Still unable to make contact with patient as VM box full and no one answered phone. At this time I will close patients transitional program as unable to contact. [facility] 36on 08-29-2024 36 [facility] 36on 08-27-2024 36 [facility] 36on 08-23-2024 36 [facility] [id number] 08-21-2024 [id number] Patient Choice Patient Name: JESSY MCKEON Date of : 1965 [facility] Progress Noteon 08-21-2024 Progress Note Chart reviewed, phon e call to [facility] to see if patient was discharged home and per Saray at [facility] patient is still admitted with them at this time. [facility] 30on 08-10-2024 30 [facility] [id number] 08-10-2024 [id number] [facility] [id number] MAR & Discharge med list transmitted to Rehab- [facility] via Careport per [facility] request. Electronically signed by [facility] Lukasz Mcdaniels [facility] [phone] Discharge order note d. CM portion of IRASEMA updated. Task sent to [facility] to send discharge paperwork to [facility]. ANTON arranging transportation. RN aware. Normal [facility] [id number] [facility] [id number] Spoke with robyn Lema patients mother, agreeable with [facility]. Secure chat Dr Schroeder, patient is ready today. [facility] school superintendentCorine is following. Normal [facility] [id number] [facility] BASIC METABOLIC PANELon 12-2 Anion gap [Moles/Vol] 9 mmol/L Normal 3-13 [facility] Comment on above: Performed By: #### L AB15 ####Pin Setter: JULI JONES ([id number])[address] Calcium [Mass/Vol] 8.6 mg/dL Normal 8.4-10.2 [facility] Comment on above: Performed By: #### L AB15 ####Pin Setter: JULI JONES ([id number])[facility])[address] [place] [address] Chloride [Moles/Vol] 99 mmol/L Normal 98-107 [facility] Comment on above: Performed By: #### L AB15 ####Pin Setter: JULI JONES ([id number])[facility])[address] [place] [address] CO2 [Moles/Vol] 23 mmol/L Normal 22-29 [facility] Comment on above: Performed By: #### L AB15 ####Pin Setter: JULI JONES ([id number])[facility])[address] [place] [address] Creatinine [Mass/Vol] 2.84 mg/dL High 0.57-1.11 [facility] Comment on above: Performed By: #### L AB15 ####Pin Setter: JULI JONES ([id number])[facility])[address] [place] [address] GLOMERULAR FILTRATION RATE ML/MIN/1.73 SQ M.PREDICTED 18.8 mL/min/1.73m*2 Low >60.0 [facility] Comment on above: Result Comment: Calc ulation based on the Chronic Kidney Disease Epidemiology Collaboration (CKD-EPI) equation refit without adjustment for race Performed By: #### L AB15 ####Pin Setter: JULI JONES ([id number])[facility])[address] [place] [address] Glucose [Mass/Vol] 92 mg/dL Normal 74-100 [facility] Comment on above: Performed By: #### L AB15 ####Pin Setter: JULI JONES ([id number])[facility])[address] [place] [address] Potassium [Moles/Vol] 5.4 mmol/L High 3.5-5.1 [facility] Comment on above: Result Comment: [facility] potassium values may be up to 0.5 mmol/L lower than serum values. Performed By: #### L AB15 ####Pin Setter: JULI JONES ([id number])[facility])[address] [place] [address] Sodium [Moles/Vol] 131 mmol/L Low 136-145 [facility] Comment on above: Performed By: #### L AB15 ####Pin Setter: JULI JONES ([id number])[facility])[address] [place] [address] Urea nitrogen [Mass/Vol] 37 mg/dL High 9-23 [facility] Comment on above: Performed By: #### L AB15 ####Pin Setter: JULI JONES ([id number])[facility])[address] [place] [address] Basic metabolic 1998 panelon 08-10-2024 Anion gap [Moles/Vol] 9 mmol/L 3 - 13 mmol/L [facility] Calcium [Mass/Vol] 8.6 mg/dL 8.4 - 10. 2 mg/dL [facility] [employer] Chloride [Moles/Vol] 99 mmol/L 98 - 10 7 mmol/L [facility] [employer] CO2 [Moles/Vol] 23 mmol/L 22 - 29 mmol/L [facility] [employer] Creatinine [Mass/Vol] 2.84 mg/dL High 0.57 - 1.11 mg/dL [facility] GFR/1.73 sq M.predicted (S/P/Bld) [Vol rate/Area] 18.8 mL/min Low - PINF [facility] Comment on above: Calculation based on the Chronic Kidney Disease Epidemiology Collaboration (CKD-EPI) equation refit without adjustment for race Glucose [Mass/Vol] 92 mg/dL 74 - 100 mg/dL [facility] Interpretation and review of laboratory results Abnormal [facility] Potassium [Moles/Vol] 5.4 mmol/L High 3.5 - 5.1 mmol/L [facility] Comment on above: Plasma potassium batsheva ues may be up to 0.5 mmol/L lower than serum values. Sodium [Moles/Vol] 131 mmol/L Low 136 - 145 mmol/L [facility] [employer] Urea nitrogen [Mass/Vol] 37 mg/dL High 9 - 23 mg/dL [facility] CBC W Auto Differential pane l (Bld)on 08-10-2024 Basophils (Bld) [#/Vol] 0.1 10*3/uL 0.0 - 0.2 10*3/uL [facility] Basophils/100 WBC (Bld) 0.8 % 0.0 - 2.0 % [facility] Eosinophils (Bld) [#/Vol] 0.3 10*3/uL 0.0 - 0.5 10*3/uL [facility] Eosinophils/100 WBC (Bld) 3.8 % 0.0 - 6.0 % [facility] Erythrocyte distribution width (RBC) [Ratio] 13.8 % 11.5 - 15.0 % [facility] Hematocrit (Bld) [Volume fraction] 26 % Low 35.0 - 47.0 % [facility] Hemoglobin (Bld) [Mass/Vol] 8.2 g/dL Low 11.7 - 16.0 g/dL [facility] Immature granulocytes (Bld) [#/Vol] 0.4 10*3/uL High NINF - 0.1 10*3/uL [facility] Immature granulocytes/100 WBC (Bld) 4.9 % High 0.0 - 2.0 % [facility] Interpretation and review of laboratory results Abnormal [facility] Lymphocytes (Bld) [#/Vol] 2.6 10*3/uL 1.0 - 4.3 10*3/uL [facility] Lymphocytes/100 WBC (Bld) 35.5 % 15.0 - 45.0 % [facility] MCH (RBC) [Entitic mass] 31.3 pg 26.0 - 34.0 pg [facility] MCHC (RBC) [Mass/Vol] 31.5 % 30.5 - 36.0 % [facility] MCV (RBC) [Entitic vol] 99.2 fL High 77.0 - 99.0 fL [facility] Monocytes (Bld) [#/Vol] 1 10*3/uL High 0.0 - 0.9 10*3/uL [facility] Monocytes/100 WBC (Bld) 13.9 % High 5.0 - 13.0 % [facility] Neutrophils (Bld) [#/Vol] 3 10*3/uL 1.8 - 7.5 10*3/uL [facility] Neutrophils/100 WBC (Bld) 41.1 % 38.0 - 82.0 % [facility] Nucleated RBC/100 WBC (Bld) [Ratio] 0 % [facility] Platelet mean volume (Bld) [Entitic vol] 9 fL 9.0 - 12.7 fL [facility] Platelets (Bld) [#/Vol] 288 10*3/uL 140 - 440 10*3/uL [facility] RBC (Bld) [#/Vol] 2.62 10*6/uL Low 3.80 - 5.20 10*6/uL [facility] WBC (Bld) [#/Vol] 7.2 10*3/uL 3.6 - 10.7 10*3/uL [facility] CBC WITH AUTO DIFFERENTIALon 08-10-2024 Basophils (Bld) [#/Vol] 0.1 10*3/uL Normal 0.0-0.2 [facility] Comment on above: Performed By: #### L [id number] ####Pin Setter: JULI JONES ([id number])[facility] ([address] Basophils/100 WBC (Bld) 0.8 % Normal 0.0-2.0 [facility] Comment on above: Performed By: #### L [id number] ####Pin Setter: JULI JONES ([id number])[facility])[address] [place] [address] Eosinophils (Bld) [#/Vol] 0.3 10*3/uL Normal 0.0-0.5 [facility] Comment on above: Performed By: #### L [id number] ####Pin Setter: JULI JONES ([id number])[address] Eosinophils/100 WBC (Bld) 3.8 % Normal 0.0-6.0 [facility] Comment on above: Performed By: #### L [id number] ####Pin Setter: JULI JONES ([id number])[facility])[address] [place] [address] Erythrocyte distribution width (RBC) [Ratio] 13.8 % Normal 11.5-15.0 [facility] Comment on above: Performed By: #### L [id number] ####Pin Setter: JULI JONES ([id number])[address] Hematocrit (Bld) [Volume fraction] 26.0 % Low 35.0-47.0 [facility] Comment on above: Performed By: #### L [id number] ####Pin Setter: JULI JONES ([id number])[address] Hemoglobin (Bld) [Mass/Vol] 8.2 g/dL Low 11.7-16.0 [facility] Comment on above: Performed By: #### L [id number] ####Pin Setter: JULI JONES ([id number])[address] IMMATURE GRANS % 4.9 % High 0.0-2.0 [facility] Comment on above: Performed By: #### L [id number] ####Pin Setter: JULI JONES ([id number])[address] IMMATURE GRANS ABSOLUTE 0.4 10*3/uL High <0.1 [facility] Comment on above: Performed By: #### L [id number] ####Pin Setter: JULI JONES ([id number])[facility])[address] [place] [address] Lymphocytes (Bld) [#/Vol] 2.6 10*3/uL Normal 1.0-4.3 [facility] Comment on above: Performed By: #### L [id number] ####Pin Setter: JULI JONES ([id number])[address] Lymphocytes/100 WBC (Bld) 35.5 % Normal 15.0-45.0 [facility] Comment on above: Performed By: #### L [id number] ####Pin Setter: JULI JONES ([id number])[address] MCH (RBC) [Entitic mass] 31.3 pg Normal 26.0-34.0 [facility] Comment on above: Performed By: #### L [id number] ####Pin Setter: JULI JONES ([id number])[address] MCHC 31.5 % Normal 30.5-36.0 [facility] Comment on above: Performed By: #### L [id number] ####Pin Setter: JULI JONES ([id number])[address] MCV (RBC) [Entitic vol] 99.2 fL High 77.0-99.0 [facility] Comment on above: Performed By: #### L [id number] ####Pin Setter: JULI [id number])[facility] ([facility])[address] [place] [address] Monocytes (Bld) [#/Vol] 1.0 10*3/uL High 0.0-0.9 [facility] Comment on above: Performed By: #### L [id number] ####Pin Setter: JULI JONES ([id number])[facility] ([facility])[address] [place] [address] Monocytes/100 WBC (Bld) 13.9 % High 5.0-13.0 [facility] Comment on above: Performed By: #### L [id number] ####Pin Setter: JULI JONES ([id number])[facility])[address] [place] [address] NEUTROPHILS ABSOLUTE 3.0 10*3/uL Normal 1.8-7.5 [facility] Comment on above: Performed By: #### L [id number] ####Pin Setter: JULI JONES ([id number])[facility] ([facility])[address] [place] [address] Neutrophils/100 WBC (Bld) 41.1 % Normal 38.0-82.0 [facility] Comment on above: Performed By: #### L [id number] ####Pin Setter: JULI JONES ([id number])[facility] ([facility])[address] [place] [address] NRBC 0.0 /100 WBCs Normal 0.0-2.0 [facility] Comment on above: Performed By: #### L [id number] ####Pin Setter: JULI JONES ([id number])[facility] ([facility])[address] [place] [address] Platelet mean volume (Bld) [Entitic vol] 9.0 fL Normal 9.0-12.7 [facility] Comment on above: Performed By: #### L [id number] ####Pin Setter: JULI JONES ([id number])[facility] ([facility])[address] [place] [address] Platelets (Bld) [#/Vol] 288 10*3/uL Normal 140-440 [facility] Comment on above: Performed By: #### L [id number] ####Pin Setter: JULI JONES ([id number])[facility])[address] [place] [address] RBC (Bld) [#/Vol] 2.62 10*6/uL Low 3.80-5.20 [facility] Comment on above: Performed By: #### L [id number] ####Pin Setter: JULI JONES ([id number])[facility] ([facility])[address] [place] [address] WBC (Bld) [#/Vol] 7.2 10*3/uL Normal 3.6-10.7 [facility] Comment on above: Performed By: #### L [id number] ####Pin Setter: JULI JONES ([id number])[facility] ([facility])[address] [place] [address] Nursing Noteon 08-10-2024 Nursing Note Normal [facility] Progress Noteon 08-10-2024 Progress Note Nutrition update com pleted. Chart reviewed. 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 Blanca Jackson, AMANDA Normal [facility] 30on 08-09-2024 30 Normal [facility] BASIC METABOLIC PANELon 07-16 Anion gap [Moles/Vol] 7 mmol/L Normal 3-13 [facility] Comment on above: Performed By: #### L [id number] ####Pin Setter: JULI JONES ([id number])[facility] ([facility])[address] [place] [address] Calcium [Mass/Vol] 8.7 mg/dL Normal 8.4-10.2 [facility] Comment on above: Performed By: #### L [id number] ####Pin Setter: JULI JONES ([id number])[facility])[address] [place] [address] Chloride [Moles/Vol] 101 mmol/L Normal 98-107 [facility] Comment on above: Performed By: #### L AB15 ####Pin Setter: JULI JONES ([id number])[facility])[address] [place] [address] CO2 [Moles/Vol] 23 mmol/L Normal 22-29 [facility] Comment on above: Performed By: #### L AB15 ####Pin Setter: JULI JONES ([id number])[facility])[address] [place] [address] Creatinine [Mass/Vol] 2.79 mg/dL High 0.57-1.11 [facility] Comment on above: Performed By: #### L AB15 ####Pin Setter: JULI JONES ([id number])[address] GLOMERULAR FILTRATION RATE ML/MIN/1.73 SQ M.PREDICTED 19.2 mL/min/1.73m*2 Low >60.0 [facility] Comment on above: Result Comment: Calc ulation based on the Chronic Kidney Disease Epidemiology Collaboration (CKD-EPI) equation refit without adjustment for race Performed By: #### L AB15 ####Pin Setter: JULI JONES ([id number])[address] Glucose [Mass/Vol] 81 mg/dL Normal 74-100 [facility] Comment on above: Performed By: #### L AB15 ####Pin Setter: JULI JONES ([id number])[facility])[address] [place] [address] Potassium [Moles/Vol] 4.9 mmol/L Normal 3.5-5.1 [facility] Comment on above: Result Comment: [facility] potassium values may be up to 0.5 mmol/L lower than serum values. Performed By: #### L AB15 ####Pin Setter: JULI JONES ([id number])[facility])[address] [place] [address] Sodium [Moles/Vol] 131 mmol/L Low 136-145 [facility] Comment on above: Performed By: #### L AB15 ####Pin Setter: JULI JONES ([id number])[address] Urea nitrogen [Mass/Vol] 33 mg/dL High 9-23 [facility] Comment on above: Performed By: #### L AB15 ####Pin Setter: JULI JONES ([id number])[address] Bacteria identified Cx Nom ( U)Ordered By: Osiris Nunez on 08-09-2024 Interpretation and review of laboratory results Abnormal [facility] Basic metabolic 1998 panelon 08-09-2024 Anion gap [Moles/Vol] 7 mmol/L 3 - 13 mmol/L [facility] Calcium [Mass/Vol] 8.7 mg/dL 8.4 - 10. 2 mg/dL [facility] Chloride [Moles/Vol] 101 mmol/L 98 - 10 7 mmol/L [facility] CO2 [Moles/Vol] 23 mmol/L 22 - 29 mmol/L [facility] Creatinine [Mass/Vol] 2.79 mg/dL High 0.57 - 1.11 mg/dL [facility] GFR/1.73 sq M.predicted (S/P/Bld) [Vol rate/Area] 19.2 mL/min Low - PINF [facility] Comment on above: Calculation based on the Chronic Kidney Disease Epidemiology Collaboration (CKD-EPI) equation refit without adjustment for race Glucose [Mass/Vol] 81 mg/dL 74 - 100 mg/dL [facility] Interpretation and review of laboratory results Abnormal [facility] Potassium [Moles/Vol] 4.9 mmol/L 3.5 - 5.1 mmol/L [facility] Comment on above: Plasma potassium batsheva ues may be up to 0.5 mmol/L lower than serum values. Sodium [Moles/Vol] 131 mmol/L Low 136 - 145 mmol/L [facility] Urea nitrogen [Mass/Vol] 33 mg/dL High 9 - 23 mg/dL [facility] CBC W Auto Differential pane l (Bld)Ordered By: Saray Fragoso on 08-09-2024 Erythrocyte distribution width (RBC) [Ratio] 13.7 % 11.5 - 15.0 % [facility] Hematocrit (Bld) [Volume fraction] 28.1 % Low 35.0 - 47.0 % [facility] Hemoglobin (Bld) [Mass/Vol] 8.8 g/dL Low 11.7 - 16.0 g/dL [facility] Interpretation and review of laboratory results Abnormal [facility] MCH (RBC) [Entitic mass] 31.5 pg 26.0 - 34.0 pg [facility] MCHC (RBC) [Mass/Vol] 31.3 % 30.5 - 36.0 % [facility] MCV (RBC) [Entitic vol] 100.7 fL High 77.0 - 99.0 fL [facility] Platelet mean volume (Bld) [Entitic vol] 9.1 fL 9.0 - 12.7 fL [facility] Platelets (Bld) [#/Vol] 288 10*3/uL 140 - 440 10*3/uL [facility] RBC (Bld) [#/Vol] 2.79 10*6/uL Low 3.80 - 5.20 10*6/uL [facility] WBC (Bld) [#/Vol] 6.7 10*3/uL 3.6 - 10.7 10*3/uL [facility] CBC WITH AUTO DIFFERENTIALon 08-09-2024 Erythrocyte distribution width (RBC) [Ratio] 13.7 % Normal 11.5-15.0 [facility] Comment on above: Performed By: #### L [id number], [id number] ####Pin Setter: JULI JONES ([id number])[address] Hematocrit (Bld) [Volume fraction] 28.1 % Low 35.0-47.0 [facility] Comment on above: Performed By: #### L [id number], [id number] ####Pin Setter: JULI JONES ([id number])[address] Hemoglobin (Bld) [Mass/Vol] 8.8 g/dL Low 11.7-16.0 [facility] Comment on above: Performed By: #### L [id number], [id number] ####Pin Setter: JULI JONES ([id number])[facility])[address] [place] [address] MCH (RBC) [Entitic mass] 31.5 pg Normal 26.0-34.0 [facility] Comment on above: Performed By: #### L [id number], [id number] ####Pin Setter: JULI JONES ([id number])[facility])[address] [place] [address] MCHC 31.3 % Normal 30.5-36.0 [facility] Comment on above: Performed By: #### L [id number], [id number] ####Pin Setter: JULI JONES ([id number])[facility])[address] [place] [address] MCV (RBC) [Entitic vol] 100.7 fL High 77.0-99.0 [facility] Comment on above: Performed By: #### Kesha [id number], [id number] ####Pin Setter: JULI JONES ([id number])[facility])[address] [place] [address] Platelet mean volume (Bld) [Entitic vol] 9.1 fL Normal 9.0-12.7 [facility] Comment on above: Performed By: #### L [id number], [id number] ####Pin Setter: JULI JONES ([id number])[facility] ([facility])[address] [place] [address] Platelets (Bld) [#/Vol] 288 10*3/uL Normal 140-440 [facility] Comment on above: Performed By: #### L [id number], [id number] ####Pin Setter: JULI JONES ([id number])[facility])[address] [place] [address] RBC (Bld) [#/Vol] 2.79 10*6/uL Low 3.80-5.20 [facility] Comment on above: Performed By: #### Kesha [id number], [id number] ####Pin Setter: JULI JONES ([id number])[facility])[address] [place] [address] WBC (Bld) [#/Vol] 6.7 10*3/uL Normal 3.6-10.7 [facility] Comment on above: Performed By: #### Kesha [id number], [id number] ####Pin Setter: JULI JONES ([id number])[facility] ([facility])[address] [place] [address] Laboratory - Microbiology an d Antimicrobial susceptibilityOrdered By: Osiris Nunez on 08-09-2024 Bacteria identified Cx Nom (U) >100,000 CFU/mL Escherichia coli Abnormal [facility] MANUAL DIFFERENTIALon 2023 BAND NEUTROPHILS TOTAL PER COUNTED LEUKOCYTES BY MANUAL COUNT 2 Normal [facility] Comment on above: Performed By: #### Kesha STEPHENSON, [id number] ####Pin Setter: JULI JONES ([id number])[facility] ([facility])[address] [place] [address] BANDS 0.1 10*3/uL High <=0.0 [facility] Comment on above: Performed By: #### Kesha STEPHENSON, [id number] ####Pin Setter: JULI JONES ([id number])[facility])[address] [place] [address] CELLS COUNTED TOTAL (#) IN BLOOD 100 Normal [facility] Comment on above: Performed By: #### Kesha [id number], [id number] ####Pin Setter: JULI JONES ([id number])[facility])[address] [place] [address] DIFFERENTIAL METHOD Manual differential performed Normal [facility] Comment on above: Performed By: #### L [id number], [id number] ####Pin Setter: JULI JONES ([id number])[facility])[address] [place] [address] EOSINOPHILS (10*3/UL) IN BLOOD BY MANUAL COUNT 0.3 10*3/uL Normal 0.0-0.5 [facility] Comment on above: Performed By: #### L [id number], [id number] ####Pin Setter: JULI JONES ([id number])[facility] ([facility])[address] [place] [address] [place] EOSINOPHILS TOTAL PER COUNTED LEUKOCYTES BY MANUAL COUNT 5 High 0-1 [facility] Comment on above: Performed By: #### L [id number], [id number] ####Pin Setter: JULI JONES ([phone])[facility] ([facility])[address] [place] [address] [place] EOSINOPHILS/100 LEUKOCYTES IN BLOOD BY MANUAL COUNT 5 % Normal 0-6 [facility] Comment on above: Performed By: #### L [id number], [id number] ####Pin Setter: JULI JONES ([id number])[facility] ([facility])[address] [place] [address] [place] LEUKOCYTE MORPHOLOGY FINDING IN BLOOD Normal Normal [facility] Comment on above: Performed By: #### Kesha [id number], [id number] ####Pin Setter: JULI JONES ([id number])[facility] ([facility])[address] [place] [address] [place] LEUKOCYTES (10*3/UL) NUCLEATED ERYTHROCYTE ADJUST 6.7 10*3/uL Normal 3.6-10.7 [facility] Comment on above: Performed By: #### L [id number], [id number] ####Pin Setter: JULI JONES ([id number])[facility] ([facility])[address] [place] [address] [place] LYMPHOCYTES (10*3/UL) IN BLOOD BY MANUAL COUNT 3.3 10*3/uL Normal 1.0-4.3 [facility] Comment on above: Performed By: #### L [id number], [id number] ####Pin Setter: JULI JONES ([id number])[facility])[address] [place] [address] [place] LYMPHOCYTES TOTAL PER COUNTED LEUKOCYTES BY MANUAL COUNT 49 Normal [facility] Comment on above: Performed By: #### L [id number], [id number] ####Pin Setter: JULI JONES ([id number])[facility] ([facility])[address] [place] [address] [place] LYMPHOCYTES/100 LEUKOCYTES IN BLOOD BY MANUAL COUNT 49 % High 15-45 [facility] Comment on above: Performed By: #### L [id number], [id number] ####Pin Setter: JULI JONES ([id number])[facility] ([facility])[address] [place] [address] [place] MONOCYTES (10*3/UL) IN BLOOD BY MANUAL COUNT 0.7 10*3/uL Normal 0.0-0.9 [facility] Comment on above: Performed By: #### L [id number], [id number] ####Pin Setter: JULI JONES ([id number])[facility] ([facility])[address] [place] [address] MONOCYTES TOTAL PER COUNTED LEUKOCYTES BY MANUAL COUNT 11 Normal [facility] Comment on above: Performed By: #### L [id number], [id number] ####Pin Setter: JULI JONES ([id number])[facility] ([facility])[address] [place] [address] [place] MONOCYTES/100 LEUKOCYTES IN BLOOD BY MANUAL COUNT 11 % Normal 5-13 [facility] Comment on above: Performed By: #### L [id number], [id number] ####Pin Setter: JULI JONES ([id number])[facility] ([facility])[address] [place] [address] [place] MYELOCYTES (10*3/UL) IN BLOOD BY MANUAL COUNT 0.3 10*3/uL High <=0.0 [facility] Comment on above: Performed By: #### L [id number], [id number] ####Pin Setter: JULI JONES ([id number])[facility])[address] [place] [address] [place] MYELOCYTES COUNTED BY MANUAL COUNT 4 Normal [facility] Comment on above: Performed By: #### L [id number], [id number] ####Pin Setter: JULI JONES ([id number])[facility])[address] [place] [address] [place] MYELOCYTES/100 LEUKOCYTES IN BLOOD BY MANUAL COUNT 4 % High <=0 [facility] Comment on above: Performed By: #### L [id number], [id number] ####Pin Setter: JULI JONES ([id number])[facility] ([facility])[address] [place] [address] [place] NEUTROPHILS (SEGS+BANDS) (10*3/UL) BY MANUAL COUNT 2.1 10*3/uL Normal 1.8-7.0 [facility] Comment on above: Performed By: #### L [id number], [id number] ####Pin Setter: JULI JONES ([id number])[facility])[address] [place] [address] NEUTROPHILS BAND FORM/100 LEUKOCYTES IN BLOOD BY MANUAL COUNT 2 % High <=0 [facility] Comment on above: Performed By: #### L [id number], [id number] ####Pin Setter: JULI JONES ([id number])[facility] ([facility])[address] [place] [address] [place] NEUTROPHILS TOTAL PER COUNTED LEUKOCYTES BY MANUAL COUNT 29 Normal [facility] Comment on above: Performed By: #### L [id number], [id number] ####Pin Setter: JULI JONES ([id number])[facility])[address] [place] [address] [place] OVALOCYTES PRESENCE IN BLOOD BY LIGHT MICROSCOPY Slight Abnormal (none) [facility] Comment on above: Performed By: #### L [id number], [id number] ####Pin Setter: JULI JONES ([id number])[facility])[address] [place] [address] [place] PLATELET MORPHOLOGY IN BLOOD Normal Normal [facility] Comment on above: Performed By: #### L [id number], [id number] ####Pin Setter: JULI JONES ([id number])[facility] ([facility])[address] [place] [address] [place] POIKILOCYTOSIS (PRESENCE) IN BLOOD BY LIGHT MICROSCOPY Slight Abnormal (none) [facility] Comment on above: Performed By: #### L [id number], [id number] ####Pin Setter: JULI JONES ([id number])[facility] ([facility])[address] [place] [address] SEGEMENTED NEUTROPHILS/100 LEUKOCYTES BY MANUAL COUNT 29 % Low 38-82 [facility] Comment on above: Performed By: #### L [id number], [id number] ####Pin Setter: JULI JONES ([id number])[facility] ([facility])[address] [place] [address] SEGMENTED NEUTROPHILS (10*3/UL)IN BLOOD BY MANUAL COUNT 2.1 10*3/uL Normal 1.8-7.5 [facility] Comment on above: Performed By: #### L [id number], [id number] ####Pin Setter: JULI JONES ([id number])[facility])[address] [place] [address] Manual differential performe d Ql (Bld)on 08-09-2024 Band form neutrophils (Bld) [#/Vol] 0.1 10*3/uL High NINF - 0.0 10*3/uL [facility] [employer] Band form neutrophils/100 WBC (Bld) 2 % High NINF - 0 % [facility] Bands Manual 2 [facility] [employer] Cells Counted Total (Bld) [#] 100 {cells} [facility] Differential Method Manual differential performed [facility] Eosinophils (Bld) [#/Vol] 0.3 10*3/uL 0.0 - 0.5 10*3/uL [facility] Eosinophils Manual 5 High 0 - 1 [facility] Eosinophils/100 WBC (Bld) 5 % 0 - 6 % [facility] [employer] Interpretation and review of laboratory results Abnormal [facility] [employer] Leukocyte morphology finding Nom (Bld) Normal [facility] Lymphocytes (Bld) [#/Vol] 3.3 10*3/uL 1.0 - 4.3 10*3/uL [facility] Lymphocytes Manual 49 [facility] Lymphocytes/100 WBC (Bld) 49 % High 15 - 45 % [facility] [employer] Monocytes (Bld) [#/Vol] 0.7 10*3/uL 0.0 - 0.9 10*3/uL [facility] Monocytes Manual 11 [facility] Monocytes/100 WBC (Bld) 11 % 5 - 13 % [facility] Myelocytes (Bld) [#/Vol] 0.3 10*3/uL High NINF - 0.0 10*3/uL [facility] Myelocytes Manual 4 [facility] Myelocytes/100 WBC (Bld) 4 % High NINF - 0 % [facility] Neutrophils (Bld) [#/Vol] 2.1 10*3/uL 1.8 - 7.5 10*3/uL [facility] Neutrophils Manual 29 [facility] Ovalocytes LM Ql (Bld) Slight Abnormal (none) [facility] Platelet morphology finding Nom (Bld) Normal [facility] Poikilocytosis LM Ql (Bld) Slight Abnormal (none) [facility] Segmented neutrophils/100 WBC (Bld) 29 % Low 38 - 82 % [facility] WBC corrected for nucl RBC (Bld) [#/Vol] 6.7 10*3/uL 3.6 - 10.7 10*3/uL [facility] Nursing Noteon 08-09-2024 Nursing Note Normal [facility] Progress Noteon 08-09-2024 Progress Note Normal [facility] Progress Note Normal [facility] Progress Note Normal [facility] Progress Note Normal [facility] 30on 08-08-2024 30 Normal [facility] 30 Normal [facility] BASIC METABOLIC PANELon 07-16 Anion gap [Moles/Vol] 6 mmol/L Normal 3-13 [facility] Comment on above: Performed By: #### L [id number] ####Pin Setter: JULI JONES ([id number])[facility] ([facility])[address] [place] [address] [place] Calcium [Mass/Vol] 8.7 mg/dL Normal 8.4-10.2 [facility] Comment on above: Performed By: #### L [id number] ####Pin Setter: JULI JONES ([id number])[facility] ([facility])[address] [place] [address] Chloride [Moles/Vol] 100 mmol/L Normal 98-107 [facility] Comment on above: Performed By: #### L [id number] ####Pin Setter: JULI JONES ([id number])[facility])[address] [place] [address] CO2 [Moles/Vol] 24 mmol/L Normal 22-29 [facility] Comment on above: Performed By: #### L [id number] ####Pin Setter: JULI JONES ([id number])[facility])[address] [place] [address] Creatinine [Mass/Vol] 2.73 mg/dL High 0.57-1.11 [facility] Comment on above: Performed By: #### L [id number] ####Pin Setter: JULI JONES ([id number])[address] GLOMERULAR FILTRATION RATE ML/MIN/1.73 SQ M.PREDICTED 19.7 mL/min/1.73m*2 Low >60.0 [facility] Comment on above: Result Comment: Calc ulation based on the Chronic Kidney Disease Epidemiology Collaboration (CKD-EPI) equation refit without adjustment for race Performed By: #### L [id number] ####Pin Setter: JULI JONES ([id number])[facility])[address] [place] [address] Glucose [Mass/Vol] 94 mg/dL Normal 74-100 [facility] Comment on above: Performed By: #### L [id number] ####Pin Setter: JULI JONES ([id number])[facility])[address] [place] [address] Potassium [Moles/Vol] 5.4 mmol/L High 3.5-5.1 [facility] Comment on above: Result Comment: [facility] potassium values may be up to 0.5 mmol/L lower than serum values. Performed By: #### L [id number] ####Pin Setter: UJLI JONES ([id number])[facility])[address] [place] [address] Sodium [Moles/Vol] 130 mmol/L Low 136-145 [facility] Comment on above: Performed By: #### L [id number] ####Pin Setter: JULI JONES ([id number])[address] Urea nitrogen [Mass/Vol] 32 mg/dL High 9-23 [facility] Comment on above: Performed By: #### L [id number] ####Pin Setter: JULI JONES ([id number])[facility] ([facility])[address] [place] [address] Basic metabolic 1998 panelon 08-08-2024 Anion gap [Moles/Vol] 6 mmol/L 3 - 13 mmol/L [facility] Calcium [Mass/Vol] 8.7 mg/dL 8.4 - 10. 2 mg/dL [facility] Chloride [Moles/Vol] 100 mmol/L 98 - 10 7 mmol/L [facility] CO2 [Moles/Vol] 24 mmol/L 22 - 29 mmol/L [facility] Creatinine [Mass/Vol] 2.73 mg/dL High 0.57 - 1.11 mg/dL [facility] GFR/1.73 sq M.predicted (S/P/Bld) [Vol rate/Area] 19.7 mL/min Low - PINF [facility] Comment on above: Calculation based on the Chronic Kidney Disease Epidemiology Collaboration (CKD-EPI) equation refit without adjustment for race Glucose [Mass/Vol] 94 mg/dL 74 - 100 mg/dL [facility] Interpretation and review of laboratory results Abnormal [facility] Potassium [Moles/Vol] 5.4 mmol/L High 3.5 - 5.1 mmol/L [facility] Comment on above: Plasma potassium [place] ues may be up to 0.5 mmol/L lower than serum values. Sodium [Moles/Vol] 130 mmol/L Low 136 - 145 mmol/L [facility] Urea nitrogen [Mass/Vol] 32 mg/dL High 9 - 23 mg/dL [facility] CBC W Auto Differential pane l (Bld)on 08-08-2024 Basophils (Bld) [#/Vol] 0.1 10*3/uL 0.0 - 0.2 10*3/uL [facility] Basophils/100 WBC (Bld) 0.7 % 0.0 - 2.0 % [facility] Eosinophils (Bld) [#/Vol] 0.2 10*3/uL 0.0 - 0.5 10*3/uL [facility] Eosinophils/100 WBC (Bld) 2.9 % 0.0 - 6.0 % [facility] Erythrocyte distribution width (RBC) [Ratio] 13.6 % 11.5 - 15.0 % [facility] Hematocrit (Bld) [Volume fraction] 26.7 % Low 35.0 - 47.0 % [facility] Hemoglobin (Bld) [Mass/Vol] 8.7 g/dL Low 11.7 - 16.0 g/dL [facility] Immature granulocytes (Bld) [#/Vol] 0.4 10*3/uL High NINF - 0.1 10*3/uL [facility] Immature granulocytes/100 WBC (Bld) 4.7 % High 0.0 - 2.0 % [facility] Interpretation and review of laboratory results Abnormal [facility] Lymphocytes (Bld) [#/Vol] 2.7 10*3/uL 1.0 - 4.3 10*3/uL [facility] Lymphocytes/100 WBC (Bld) 32.1 % 15.0 - 45.0 % [facility] MCH (RBC) [Entitic mass] 31.6 pg 26.0 - 34.0 pg [facility] MCHC (RBC) [Mass/Vol] 32.6 % 30.5 - 36.0 % [facility] MCV (RBC) [Entitic vol] 97.1 fL 77.0 - 99.0 fL [facility] Monocytes (Bld) [#/Vol] 0.8 10*3/uL 0.0 - 0.9 10*3/uL [facility] Monocytes/100 WBC (Bld) 9.9 % 5.0 - 13.0 % [facility] Neutrophils (Bld) [#/Vol] 4.1 10*3/uL 1.8 - 7.5 10*3/uL [facility] Neutrophils/100 WBC (Bld) 49.7 % 38.0 - 82.0 % [facility] Nucleated RBC/100 WBC (Bld) [Ratio] 0 % [facility] Platelet mean volume (Bld) [Entitic vol] 9.2 fL 9.0 - 12.7 fL [facility] Platelets (Bld) [#/Vol] 296 10*3/uL 140 - 440 10*3/uL [facility] RBC (Bld) [#/Vol] 2.75 10*6/uL Low 3.80 - 5.20 10*6/uL [facility] WBC (Bld) [#/Vol] 8.3 10*3/uL 3.6 - 10.7 10*3/uL [facility] CBC WITH AUTO DIFFERENTIALon 08-08-2024 Basophils (Bld) [#/Vol] 0.1 10*3/uL Normal 0.0-0.2 [facility] Comment on above: Performed By: #### L [id number] ####Pin Setter: JULI JONES ([id number])[facility])[address] [place] [address] Basophils/100 WBC (Bld) 0.7 % Normal 0.0-2.0 [facility] Comment on above: Performed By: #### L [id number] ####Pin Setter: JULI JONES ([id number])[facility])[address] [place] [address] Eosinophils (Bld) [#/Vol] 0.2 10*3/uL Normal 0.0-0.5 [facility] Comment on above: Performed By: #### L [id number] ####Pin Setter: JULI JONES ([id number])[facility])[address] [place] [address] Eosinophils/100 WBC (Bld) 2.9 % Normal 0.0-6.0 [facility] Comment on above: Performed By: #### L [id number] ####Pin Setter: JULI JONES ([id number])[facility])[address] [place] [address] Erythrocyte distribution width (RBC) [Ratio] 13.6 % Normal 11.5-15.0 [facility] Comment on above: Performed By: #### L [id number] ####Pin Setter: JULI [id number])[facility])[address] [place] [address] Hematocrit (Bld) [Volume fraction] 26.7 % Low 35.0-47.0 [facility] Comment on above: Performed By: #### L [id number] ####Pin Setter: JULI JONES ([id number])[facility])[address] [place] [address] Hemoglobin (Bld) [Mass/Vol] 8.7 g/dL Low 11.7-16.0 [facility] Comment on above: Performed By: #### L [id number] ####Pin Setter: JULI JONES ([id number])[facility])[address] [place] [address] IMMATURE GRANS % 4.7 % High 0.0-2.0 [facility] Comment on above: Performed By: #### L [id number] ####Pin Setter: JULI JONES ([id number])[facility])[address] [place] [address] IMMATURE GRANS ABSOLUTE 0.4 10*3/uL High <0.1 [facility] Comment on above: Performed By: #### L [id number] ####Pin Setter: JULI JONES ([id number])[facility])[address] [place] [address] Lymphocytes (Bld) [#/Vol] 2.7 10*3/uL Normal 1.0-4.3 [facility] Comment on above: Performed By: #### L [id number] ####Pin Setter: JULI JONES ([id number])[facility])[address] [place] [address] Lymphocytes/100 WBC (Bld) 32.1 % Normal 15.0-45.0 [facility] Comment on above: Performed By: #### L [id number] ####Pin Setter: JULI JONES ([id number])[facility])[address] [place] [address] MCH (RBC) [Entitic mass] 31.6 pg Normal 26.0-34.0 [facility] Comment on above: Performed By: #### L [id number] ####Pin Setter: JULI JONES ([id number])[facility])[address] [place] [address] MCHC 32.6 % Normal 30.5-36.0 [facility] Comment on above: Performed By: #### L [id number] ####Pin Setter: JULI JONES ([id number])[facility])[address] [place] [address] MCV (RBC) [Entitic vol] 97.1 fL Normal 77.0-99.0 [facility] Comment on above: Performed By: #### L [id number] ####Pin Setter: JULI JONES ([id number])[facility])[address] [place] [address] Monocytes (Bld) [#/Vol] 0.8 10*3/uL Normal 0.0-0.9 [facility] Comment on above: Performed By: #### L [id number] ####Pin Setter: JULI JONES ([id number])[facility])[address] [place] [address] Monocytes/100 WBC (Bld) 9.9 % Normal 5.0-13.0 [facility] Comment on above: Performed By: #### L [id number] ####Pin Setter: JULI JONES ([id number])[facility])[address] [place] [address] NEUTROPHILS ABSOLUTE 4.1 10*3/uL Normal 1.8-7.5 [facility] Comment on above: Performed By: #### L [id number] ####Pin Setter: JULI JONES ([id number])[facility])[address] [place] [address] Neutrophils/100 WBC (Bld) 49.7 % Normal 38.0-82.0 [facility] Comment on above: Performed By: #### L [id number] ####Pin Setter: JULI JONES ([id number])[facility] ([facility])[address] [place] [address] NRBC 0.0 /100 WBCs Normal 0.0-2.0 [facility] Comment on above: Performed By: #### L [id number] ####Pin Setter: JULI JONES ([id number])[facility] ([facility])[address] [place] [address] Platelet mean volume (Bld) [Entitic vol] 9.2 fL Normal 9.0-12.7 [facility] Comment on above: Performed By: #### L [id number] ####Pin Setter: JULI JONES ([id number])[facility] ([facility])[address] [place] [address] Platelets (Bld) [#/Vol] 296 10*3/uL Normal 140-440 [facility] Comment on above: Performed By: #### L [id number] ####Pin Setter: JULI JONES ([id number])[facility] ([facility])[address] [place] [address] RBC (Bld) [#/Vol] 2.75 10*6/uL Low 3.80-5.20 [facility] Comment on above: Performed By: #### L [id number] ####Pin Setter: JULI JONES ([id number])[facility] ([facility])[address] [place] [address] WBC (Bld) [#/Vol] 8.3 10*3/uL Normal 3.6-10.7 [facility] Comment on above: Performed By: #### L [id number] ####Pin Setter: JULI JONES ([id number])[facility])[address] [place] [address] Laboratory - Chemistry and C hemistry - challengeon 08-08-2024 Glucose [Mass/Vol] 97 mg/dL 70 - 100 mg/dL [facility] No Panel Informationon 08-08 Interpretation and review of laboratory results Normal [facility] Performed by: [facility], [address] [address] CLIA ID: [id number] [facility] Progress Noteon 08-08-2024 Progress Note Normal [facility] Progress Note Normal [facility] 30on 08-07-2024 30 Normal [facility] 30 Normal [facility] [id number] [id number] Amb re quest in Round Trip as Will Call for [facility]. Trip can be edited if pt not able to go to [facility]. [facility] [phone] Spoke with patient, Stated [facility], will have [facility] [employer] P[employer] aware. [facility] [phone] Plan SNF [place] following and will update [place] at [place] [facility] [phone] ANTON reviewed media- n o DPOA on file. ANTON checked probate court- ( [facility]) no results of guardianship. [facility] BASIC METABOLIC PANELon 12-2 Anion gap [Moles/Vol] 7 mmol/L Normal 3-13 [facility] Comment on above: Performed By: #### L [id number] ####Pin Setter: JULI JONES ([id number])[facility] ([facility])[address] [place] [address] [place] Calcium [Mass/Vol] 8.6 mg/dL Normal 8.4-10.2 [facility] Comment on above: Performed By: #### L AB15 ####Pin Setter: JULI JONES ([id number])[facility] ([facility])[address] [place] [address] [place] Chloride [Moles/Vol] 103 mmol/L Normal 98-107 [facility] Comment on above: Performed By: #### L AB15 ####Pin Setter: JULI JONES ([id number])[facility])[address] [place] [address] CO2 [Moles/Vol] 23 mmol/L Normal 22-29 [facility] Comment on above: Performed By: #### L AB15 ####Pin Setter: JULI JONES ([id number])[facility])[address] [place] [address] Creatinine [Mass/Vol] 2.89 mg/dL High 0.57-1.11 [facility] Comment on above: Performed By: #### L AB15 ####Pin Setter: JULI JONES ([id number])[facility])[address] [place] [address] GLOMERULAR FILTRATION RATE ML/MIN/1.73 SQ M.PREDICTED 18.4 mL/min/1.73m*2 Low >60.0 [facility] Comment on above: Result Comment: Calc ulation based on the Chronic Kidney Disease Epidemiology Collaboration (CKD-EPI) equation refit without adjustment for race Performed By: #### L AB15 ####Pin Setter: JULI JONES ([id number])[facility])[address] [place] [address] Glucose [Mass/Vol] 114 mg/dL High 74-100 [facility] Comment on above: Performed By: #### L AB15 ####Pin Setter: JULI JONES ([id number])[facility])[address] [place] [address] Potassium [Moles/Vol] 4.7 mmol/L Normal 3.5-5.1 [facility] Comment on above: Result Comment: [facility] potassium values may be up to 0.5 mmol/L lower than serum values. Performed By: #### L AB15 ####Pin Setter: JULI JONES ([id number])[facility])[address] [place] [address] Sodium [Moles/Vol] 133 mmol/L Low 136-145 [facility] Comment on above: Performed By: #### L AB15 ####Pin Setter: JULI JONES ([id number])[facility])[address] [place] [address] Urea nitrogen [Mass/Vol] 34 mg/dL High 9-23 [facility] Comment on above: Performed By: #### L AB15 ####Pin Setter: JULI JONES ([id number])[address] Basic metabolic 1998 panelon 08-07-2024 Anion gap [Moles/Vol] 7 mmol/L 3 - 13 mmol/L [facility] Calcium [Mass/Vol] 8.6 mg/dL 8.4 - 10. 2 mg/dL [facility] Chloride [Moles/Vol] 103 mmol/L 98 - 10 7 mmol/L [facility] CO2 [Moles/Vol] 23 mmol/L 22 - 29 mmol/L [facility] Creatinine [Mass/Vol] 2.89 mg/dL High 0.57 - 1.11 mg/dL [facility] GFR/1.73 sq M.predicted (S/P/Bld) [Vol rate/Area] 18.4 mL/min Low - PINF [facility] Comment on above: Calculation based on the Chronic Kidney Disease Epidemiology Collaboration (CKD-EPI) equation refit without adjustment for race Glucose [Mass/Vol] 114 mg/dL High 74 - 100 mg/dL [facility] Interpretation and review of laboratory results Abnormal [facility] Potassium [Moles/Vol] 4.7 mmol/L 3.5 - 5.1 mmol/L [facility] Comment on above: Plasma potassium batsheva ues may be up to 0.5 mmol/L lower than serum values. Sodium [Moles/Vol] 133 mmol/L Low 136 - 145 mmol/L [facility] Urea nitrogen [Mass/Vol] 34 mg/dL High 9 - 23 mg/dL [facility] CBC W Auto Differential pane l (Bld)on 08-07-2024 Basophils (Bld) [#/Vol] 0 10*3/uL 0.0 - 0.2 10*3/uL [facility] Basophils/100 WBC (Bld) 0.5 % 0.0 - 2.0 % [facility] Eosinophils (Bld) [#/Vol] 0.3 10*3/uL 0.0 - 0.5 10*3/uL [facility] Eosinophils/100 WBC (Bld) 2.9 % 0.0 - 6.0 % [facility] Erythrocyte distribution width (RBC) [Ratio] 13.4 % 11.5 - 15.0 % [facility] Hematocrit (Bld) [Volume fraction] 25.8 % Low 35.0 - 47.0 % [facility] Hemoglobin (Bld) [Mass/Vol] 8.4 g/dL Low 11.7 - 16.0 g/dL [facility] Immature granulocytes (Bld) [#/Vol] 0.2 10*3/uL High NINF - 0.1 10*3/uL [facility] Immature granulocytes/100 WBC (Bld) 2.3 % High 0.0 - 2.0 % [facility] Interpretation and review of laboratory results Abnormal [facility] Lymphocytes (Bld) [#/Vol] 2.2 10*3/uL 1.0 - 4.3 10*3/uL [facility] Lymphocytes/100 WBC (Bld) 24.3 % 15.0 - 45.0 % [facility] MCH (RBC) [Entitic mass] 31.9 pg 26.0 - 34.0 pg [facility] MCHC (RBC) [Mass/Vol] 32.6 % 30.5 - 36.0 % [facility] MCV (RBC) [Entitic vol] 98.1 fL 77.0 - 99.0 fL [facility] Monocytes (Bld) [#/Vol] 1 10*3/uL High 0.0 - 0.9 10*3/uL [facility] Monocytes/100 WBC (Bld) 11.5 % 5.0 - 13.0 % [facility] Neutrophils (Bld) [#/Vol] 5.2 10*3/uL 1.8 - 7.5 10*3/uL [facility] Neutrophils/100 WBC (Bld) 58.5 % 38.0 - 82.0 % [facility] Nucleated RBC/100 WBC (Bld) [Ratio] 0 % [facility] Platelet mean volume (Bld) [Entitic vol] 9.1 fL 9.0 - 12.7 fL [facility] Platelets (Bld) [#/Vol] 265 10*3/uL 140 - 440 10*3/uL [facility] RBC (Bld) [#/Vol] 2.63 10*6/uL Low 3.80 - 5.20 10*6/uL [facility] WBC (Bld) [#/Vol] 8.9 10*3/uL 3.6 - 10.7 10*3/uL [facility] CBC WITH AUTO DIFFERENTIALon 08-07-2024 Basophils (Bld) [#/Vol] 0.0 10*3/uL Normal 0.0-0.2 [facility] Comment on above: Performed By: #### L [id number] ####Pin Setter: JULI JONES ([id number])[facility])[address] [place] [address] Basophils/100 WBC (Bld) 0.5 % Normal 0.0-2.0 [facility] Comment on above: Performed By: #### L [id number] ####Pin Setter: JULI JONES ([id number])[facility] ([facility])[address] [place] [address] [place] Eosinophils (Bld) [#/Vol] 0.3 10*3/uL Normal 0.0-0.5 [facility] Comment on above: Performed By: #### L [id number] ####Pin Setter: JULI JONES ([id number])[facility] ([facility])[address] [place] [address] [place] Eosinophils/100 WBC (Bld) 2.9 % Normal 0.0-6.0 [facility] Comment on above: Performed By: #### L [id number] ####Pin Setter: JULI JONES ([id number])[facility] ([facility])[address] [place] [address] [place] Erythrocyte distribution width (RBC) [Ratio] 13.4 % Normal 11.5-15.0 [facility] Comment on above: Performed By: #### L [id number] ####Pin Setter: JULI [id number])[facility] [address] Hematocrit (Bld) [Volume fraction] 25.8 % Low 35.0-47.0 [facility] Comment on above: Performed By: #### L [id number] ####Pin Setter: JULI JONES ([id number])[facility])[address] [place] [address] Hemoglobin (Bld) [Mass/Vol] 8.4 g/dL Low 11.7-16.0 [facility] Comment on above: Performed By: #### L [id number] ####Pin Setter: JULI JONES ([id number])[facility])[address] [place] [address] IMMATURE GRANS % 2.3 % High 0.0-2.0 [facility] Comment on above: Performed By: #### L [id number] ####Pin Setter: JULI JONES ([id number])[facility])[address] [place] [address] IMMATURE GRANS ABSOLUTE 0.2 10*3/uL High <0.1 [facility] Comment on above: Performed By: #### L [id number] ####Pin Setter: JULI JONES ([id number])[facility])[address] [place] [address] Lymphocytes (Bld) [#/Vol] 2.2 10*3/uL Normal 1.0-4.3 [facility] Comment on above: Performed By: #### L [id number] ####Pin Setter: JULI JONES ([id number])[facility])[address] [place] [address] Lymphocytes/100 WBC (Bld) 24.3 % Normal 15.0-45.0 [facility] Comment on above: Performed By: #### L [id number] ####Pin Setter: JULI JONES ([id number])[facility])[address] [place] [address] MCH (RBC) [Entitic mass] 31.9 pg Normal 26.0-34.0 [facility] Comment on above: Performed By: #### L [id number] ####Pin Setter: JULI JONES ([id number])[facility])[address] [place] [address] MCHC 32.6 % Normal 30.5-36.0 [facility] Comment on above: Performed By: #### L [id number] ####Pin Setter: JULI JONES ([id number])[facility])[address] [place] [address] MCV (RBC) [Entitic vol] 98.1 fL Normal 77.0-99.0 [facility] Comment on above: Performed By: #### L [id number] ####Pin Setter: JULI JONES ([id number])[facility])[address] [place] [address] Monocytes (Bld) [#/Vol] 1.0 10*3/uL High 0.0-0.9 [facility] Comment on above: Performed By: #### L [id number] ####Pin Setter: JULI JONES ([id number])[facility])[address] [place] [address] Monocytes/100 WBC (Bld) 11.5 % Normal 5.0-13.0 [facility] Comment on above: Performed By: #### L [id number] ####Pin Setter: JULI JONES ([id number])[facility])[address] [place] [address] NEUTROPHILS ABSOLUTE 5.2 10*3/uL Normal 1.8-7.5 [facility] Comment on above: Performed By: #### L [id number] ####Pin Setter: JULI JONES ([id number])[facility])[address] [place] [address] Neutrophils/100 WBC (Bld) 58.5 % Normal 38.0-82.0 [facility] Comment on above: Performed By: #### L [id number] ####Pin Setter: JULI JONES ([id number])[facility] ([facility])[address] [place] [address] NRBC 0.0 /100 WBCs Normal 0.0-2.0 [facility] Comment on above: Performed By: #### L [id number] ####Pin Setter: JULI JONES ([id number])[facility] ([facility])[address] [place] [address] Platelet mean volume (Bld) [Entitic vol] 9.1 fL Normal 9.0-12.7 [facility] Comment on above: Performed By: #### L [id number] ####Pin Setter: JULI JONES ([id number])[facility])[address] [place] [address] Platelets (Bld) [#/Vol] 265 10*3/uL Normal 140-440 [facility] Comment on above: Performed By: #### L [id number] ####Pin Setter: JULI JONES ([id number])[facility] ([facility])[address] [place] [address] RBC (Bld) [#/Vol] 2.63 10*6/uL Low 3.80-5.20 [facility] Comment on above: Performed By: #### L [id number] ####Pin Setter: JULI JONES ([id number])[facility])[address] [place] [address] WBC (Bld) [#/Vol] 8.9 10*3/uL Normal 3.6-10.7 [facility] Comment on above: Performed By: #### L [id number] ####Pin Setter: JULI JONES ([id number])[facility])[address] [place] [address] Laboratory - Chemistry and C hemistry - challengeon 08-07-2024 Glucose [Mass/Vol] 108 mg/dL High 70 - 100 mg/dL [facility] No Panel Informationon 08-07 Interpretation and review of laboratory results Abnormal [facility] Performed by: [facility], [address] [place] [address] CLIA ID: [id number] [facility] Progress Noteon 08-07-2024 Progress Note Normal [facility] Progress Note Normal [facility] Progress Note Normal [facility] 30on 08-06-2024 30 Normal [facility] [id number] 08-06-2024 [id number] Normal [facility] [id number] Normal [facility] BASIC METABOLIC PANELon 07-16 Anion gap [Moles/Vol] 7 mmol/L Normal 3-13 [facility] Comment on above: Performed By: #### Kesha AB113, LAB15, LAB68 ####Pin Setter: JULI JONES ([id number])[facility])[address] [place] [address] Calcium [Mass/Vol] 8.6 mg/dL Normal 8.4-10.2 [facility] Comment on above: Performed By: #### Kesha ABSusy, LAB15, LAB68 ####Pin Setter: JULI JONES ([id number])[facility] ([facility])[address] [place] [address] [place] Chloride [Moles/Vol] 101 mmol/L Normal 98-107 [facility] Comment on above: Performed By: #### Kesha AB113, LAB15, LAB68 ####Pin Setter: JULI JONES ([id number])[facility])[address] [place] [address] [place] CO2 [Moles/Vol] 22 mmol/L Normal 22-29 [facility] Comment on above: Performed By: #### Kesha AB113, LAB15, LAB68 ####Pin Setter: JULI JONES ([id number])[facility])[address] [place] [address] [place] Creatinine [Mass/Vol] 3.13 mg/dL High 0.57-1.11 [facility] Comment on above: Performed By: #### Kesha AB113, LAB15, LAB68 ####Pin Setter: JULI JONES ([id number])[facility] ([facility])[address] [place] [address] GLOMERULAR FILTRATION RATE ML/MIN/1.73 SQ M.PREDICTED 16.7 mL/min/1.73m*2 Low >60.0 [facility] Comment on above: Result Comment: Calc ulation based on the Chronic Kidney Disease Epidemiology Collaboration (CKD-EPI) equation refit without adjustment for race Performed By: #### Kesha ABSusy, LAB15, LAB68 ####Pin Setter: JULI JONES ([id number])[facility])[address] [place] [address] Glucose [Mass/Vol] 80 mg/dL Normal 74-100 [facility] Comment on above: Performed By: #### Kesha ALARCON, LAB15, LAB68 ####Pin Setter: JULI JONES ([id number])[facility])[address] [place] [address] Potassium [Moles/Vol] 4.3 mmol/L Normal 3.5-5.1 [facility] Comment on above: Result Comment: [facility] potassium values may be up to 0.5 mmol/L lower than serum values. Performed By: #### Kesha ABSusy, LAB15, LAB68 ####Pin Setter: JULI JONES ([id number])[facility])[address] [place] [address] Sodium [Moles/Vol] 130 mmol/L Low 136-145 [facility] Comment on above: Performed By: #### Kehsa ALARCON, LAB15, LAB68 ####Pin Setter: JUIL JONES ([id number])[facility])[address] [place] [address] [place] Urea nitrogen [Mass/Vol] 30 mg/dL High - [facility] Comment on above: Performed By: #### Kesha AB113, LAB15, LAB68 ####Pin Setter: JULI JONES ([id number])[facility])[address] [place] [address] [place] Basic metabolic 1998 panelon 08-06-2024 Anion gap [Moles/Vol] 7 mmol/L 3 - 13 mmol/L [facility] [employer] Calcium [Mass/Vol] 8.6 mg/dL 8.4 - 10. 2 mg/dL [facility] Chloride [Moles/Vol] 101 mmol/L 98 - 10 7 mmol/L [facility] CO2 [Moles/Vol] 22 mmol/L 22 - 29 mmol/L [facility] Creatinine [Mass/Vol] 3.13 mg/dL High 0.57 - 1.11 mg/dL [facility] GFR/1.73 sq M.predicted (S/P/Bld) [Vol rate/Area] 16.7 mL/min Low - PINF [facility] Comment on above: Calculation based on the Chronic Kidney Disease Epidemiology Collaboration (CKD-EPI) equation refit without adjustment for race Glucose [Mass/Vol] 80 mg/dL 74 - 100 mg/dL [facility] Interpretation and review of laboratory results Abnormal [facility] Potassium [Moles/Vol] 4.3 mmol/L 3.5 - 5.1 mmol/L [facility] Comment on above: Plasma potassium [place] may be up to 0.5 mmol/L lower than serum values. Sodium [Moles/Vol] 130 mmol/L Low 136 - 145 mmol/L [facility] Urea nitrogen [Mass/Vol] 30 mg/dL High 9 - 23 mg/dL [facility] CBC W Auto Differential pane l (Bld)on 08-06-2024 Basophils (Bld) [#/Vol] 0.1 10*3/uL 0.0 - 0.2 10*3/uL [facility] Basophils/100 WBC (Bld) 0.6 % 0.0 - 2.0 % [facility] Eosinophils (Bld) [#/Vol] 0.3 10*3/uL 0.0 - 0.5 10*3/uL [facility] Eosinophils/100 WBC (Bld) 3.5 % 0.0 - 6.0 % [facility] Erythrocyte distribution width (RBC) [Ratio] 13.2 % 11.5 - 15.0 % [facility] Hematocrit (Bld) [Volume fraction] 28.4 % Low 35.0 - 47.0 % [facility] Hemoglobin (Bld) [Mass/Vol] 9 g/dL Low 11.7 - 16.0 g/dL [facility] Immature granulocytes (Bld) [#/Vol] 0.2 10*3/uL High NINF - 0.1 10*3/uL [facility] [employer] Immature granulocytes/100 WBC (Bld) 1.8 % 0.0 - 2.0 % [facility] Interpretation and review of laboratory results Abnormal [facility] Lymphocytes (Bld) [#/Vol] 2.6 10*3/uL 1.0 - 4.3 10*3/uL [facility] Lymphocytes/100 WBC (Bld) 30.7 % 15.0 - 45.0 % [facility] MCH (RBC) [Entitic mass] 31.1 pg 26.0 - 34.0 pg [facility] MCHC (RBC) [Mass/Vol] 31.7 % 30.5 - 36.0 % [facility] MCV (RBC) [Entitic vol] 98.3 fL 77.0 - 99.0 fL [facility] Monocytes (Bld) [#/Vol] 0.9 10*3/uL 0.0 - 0.9 10*3/uL [facility] Monocytes/100 WBC (Bld) 10.6 % 5.0 - 13.0 % [facility] Neutrophils (Bld) [#/Vol] 4.4 10*3/uL 1.8 - 7.5 10*3/uL [facility] [employer] Neutrophils/100 WBC (Bld) 52.8 % 38.0 - 82.0 % [facility] [employer] Nucleated RBC/100 WBC (Bld) [Ratio] 0 % [facility] [employer] Platelet mean volume (Bld) [Entitic vol] 9.2 fL 9.0 - 12.7 fL [facility] [employer] Platelets (Bld) [#/Vol] 271 10*3/uL 140 - 440 10*3/uL [facility] RBC (Bld) [#/Vol] 2.89 10*6/uL Low 3.80 - 5.20 10*6/uL [facility] WBC (Bld) [#/Vol] 8.3 10*3/uL 3.6 - 10.7 10*3/uL [facility] CBC WITH AUTO DIFFERENTIALon 08-06-2024 Basophils (Bld) [#/Vol] 0.1 10*3/uL Normal 0.0-0.2 [facility] Comment on above: Performed By: #### L [id number] ####Pin Setter: JULI JONES ([id number])[facility])[address] [place] [address] Basophils/100 WBC (Bld) 0.6 % Normal 0.0-2.0 [facility] Comment on above: Performed By: #### L [id number] ####Pin Setter: JULI JONES ([id number])[facility])[address] [place] [address] Eosinophils (Bld) [#/Vol] 0.3 10*3/uL Normal 0.0-0.5 [facility] Comment on above: Performed By: #### L [id number] ####Pin Setter: JULI JONES ([id number])[facility])[address] [place] [address] Eosinophils/100 WBC (Bld) 3.5 % Normal 0.0-6.0 [facility] Comment on above: Performed By: #### L [id number] ####Pin Setter: JULI JONES ([id number])[facility])[address] [place] [address] Erythrocyte distribution width (RBC) [Ratio] 13.2 % Normal 11.5-15.0 [facility] Comment on above: Performed By: #### L [id number] ####Pin Setter: JULI JONES ([id number])[address] Hematocrit (Bld) [Volume fraction] 28.4 % Low 35.0-47.0 [facility] Comment on above: Performed By: #### L [id number] ####Pin Setter: JULI JONES ([id number])[facility])[address] [place] [address] Hemoglobin (Bld) [Mass/Vol] 9.0 g/dL Low 11.7-16.0 [facility] Comment on above: Performed By: #### L [id number] ####Pin Setter: JULI JONES ([id number])[facility])[address] [place] [address] IMMATURE GRANS % 1.8 % Normal 0.0-2.0 [facility] Comment on above: Performed By: #### L [id number] ####Pin Setter: JULI JONES ([id number])[facility])[address] [place] [address] IMMATURE GRANS ABSOLUTE 0.2 10*3/uL High <0.1 [facility] Comment on above: Performed By: #### L [id number] ####Pin Setter: JULI JONES ([id number])[facility])[address] [place] [address] Lymphocytes (Bld) [#/Vol] 2.6 10*3/uL Normal 1.0-4.3 [facility] Comment on above: Performed By: #### L [id number] ####Pin Setter: JULI JONES ([id number])[facility])[address] [place] [address] Lymphocytes/100 WBC (Bld) 30.7 % Normal 15.0-45.0 [facility] Comment on above: Performed By: #### L [id number] ####Pin Setter: JULI JONES ([id number])[facility])[address] [place] [address] MCH (RBC) [Entitic mass] 31.1 pg Normal 26.0-34.0 [facility] Comment on above: Performed By: #### L [id number] ####Pin Setter: JULI JONES ([id number])[facility])[address] [place] [address] MCHC 31.7 % Normal 30.5-36.0 [facility] Comment on above: Performed By: #### L [id number] ####Pin Setter: JULI JONES ([id number])[facility])[address] [place] [address] MCV (RBC) [Entitic vol] 98.3 fL Normal 77.0-99.0 [facility] Comment on above: Performed By: #### L [id number] ####Pin Setter: JULI JONES ([id number])[facility])[address] [place] [address] Monocytes (Bld) [#/Vol] 0.9 10*3/uL Normal 0.0-0.9 [facility] Comment on above: Performed By: #### L [id number] ####Pin Setter: JULI JONES ([id number])[facility] ([facility])[address] [place] [address] Monocytes/100 WBC (Bld) 10.6 % Normal 5.0-13.0 [facility] Comment on above: Performed By: #### L [id number] ####Pin Setter: JULI JONES ([id number])[facility])[address] [place] [address] NEUTROPHILS ABSOLUTE 4.4 10*3/uL Normal 1.8-7.5 [facility] Comment on above: Performed By: #### L [id number] ####Pin Setter: JULI JONES ([id number])[facility] ([facility])[address] [place] [address] Neutrophils/100 WBC (Bld) 52.8 % Normal 38.0-82.0 [facility] Comment on above: Performed By: #### L [id number] ####Pin Setter: JULI JONES ([id number])[facility])[address] [place] [address] NRBC 0.0 /100 WBCs Normal 0.0-2.0 [facility] Comment on above: Performed By: #### L [id number] ####Pin Setter: JULI JONES ([id number])[facility])[address] [place] [address] Platelet mean volume (Bld) [Entitic vol] 9.2 fL Normal 9.0-12.7 [facility] Comment on above: Performed By: #### L [id number] ####Pin Setter: JULI JONES ([id number])[facility] [place] [address] Platelets (Bld) [#/Vol] 271 10*3/uL Normal 140-440 [facility] Comment on above: Performed By: #### L [id number] ####Pin Setter: JULI JONES ([id number])[facility] ([facility])[address] [place] [address] RBC (Bld) [#/Vol] 2.89 10*6/uL Low 3.80-5.20 [facility] Comment on above: Performed By: #### L [id number] ####Pin Setter: JULI JONES ([id number])[facility] ([facility])[address] [place] [address] WBC (Bld) [#/Vol] 8.3 10*3/uL Normal 3.6-10.7 [facility] Comment on above: Performed By: #### L [id number] ####Pin Setter: JULI JONES ([id number])[facility] ([facility])[address] [place] [address] FERRITINon 08-06-2024 Ferritin [Mass/Vol] 391 ng/mL High 5-204 [facility] Comment on above: Result Comment: [facility] [place] COMMENTS:Ferritin levels below 10 ng/mL have been reported as indicative of iron deficiency anemia. Performed By: #### L AB113, LAB15, LAB68 ####Pin Setter: JULI JONES ([id number])[facility] ([facility])[address] [place] [address] Ferritin [Mass/Vol]on 2023 Interpretation and review of laboratory results Abnormal [facility] Ferritin levels belo w 10 ng/mL have been reported as indicative of iron deficiency anemia. [facility] IRON AND TIBCon 08-06-2024 IRON BINDING CAPACITY 126 ug/dL Low 250-450 [facility] Comment on above: Performed By: #### L [id number] ####Pin Setter: JULI JONES ([id number])[facility] ([facility])[address] [place] [address]#### [id number] ####Pin Setter: BRENDA JEAN ([id number])[facility])[address] [place] [address] IRON SATURATION 48.4 % Normal 20.0-50.0 [facility] Comment on above: Performed By: #### L [id number] ####Pin Setter: JULI JONES ([id number])[facility] ([facility])[address] [place] [address]#### [id number] ####Pin Setter: BRENDA JEAN ([id number])[facility])[address] [place] [address] IRON, TOTAL 61 ug/dL Normal 50-170 [facility] Comment on above: Performed By: #### L [id number] ####Pin Setter: JULI JONES ([id number])[facility] [place] [address]#### [id number] ####Pin Setter: BRENDA JEAN ([id number])[facility])[address] [place] [address] Iron and Iron binding capaci ty panelon 08-06-2024 Interpretation and review of laboratory results Abnormal [facility] Iron [Mass/Vol] 61 ug/dL 50 - 170 ug/dL [facility] Iron binding capacity [Mass/Vol] 126 ug/dL Low 250 - 450 ug/dL [facility] Iron saturation [Mass fraction] 48.4 % 20.0 - 50.0 % [facility] Laboratory - Chemistry and C hemistry - challengeOrdered By: Theresa Lozano on 08-06-2024 Sodium (24H U) [Mass/Vol] 21 mmol/L [facility] Laboratory - Chemistry and C hemistry - challengeon 08-06-2024 TSH Qn 0.72 m[IU]/L [facility] Ferritin [Mass/Vol] 391 ng/mL High 5 - 204 ng/mL [facility] Laboratory - Urinalysison Protein (U) [Mass/Vol] 80 mg/dL High NINF - 14 mg/dL [facility] No Panel InformationOrdered By: Theresa Lozano on 08-06-2024 CREATININE, URINE 37.4 mg/dL Low 47.0 - 110.0 mg/dL [facility] Interpretation and review of laboratory results Abnormal [facility] SODIUM, URINE, FRACTIONAL EXCRETION 1.4 [facility] SODIUM, URINE, TUBULAR REABSORPTION 1 [facility] No Panel Informationon 08-06 CREATININE, URINE 37.4 mg/dL Low 47.0 - 110.0 mg/dL [facility] Interpretation and review of laboratory results Abnormal [facility] PHOSPHORUSon 08-06-2024 Phosphate [Mass/Vol] 3.8 mg/dL Normal 2.3-4.7 [facility] Comment on above: Performed By: #### L AB113, LAB15, [id number] ####Pin Setter: JULI JONES ([id number])[facility])[address] [place] [address] [place] PROTEIN, URINE, RANDOMon CREATININE, URINE 37.4 mg/dL Low 47.0-110.0 [facility] Comment on above: Performed By: #### L AB439, [id number] ####Pin Setter: JULI JONES ([id number])[facility] ([facility])[address] [place] [address] Protein (U) [Mass/Vol] 80 mg/dL High <14 [facility] Comment on above: Performed By: #### L AB439, [id number] ####Pin Setter: JULI JONES ([id number])[facility])[address] [place] [address] [place] Phosphate [Moles/Vol]on 07-16 Interpretation and review of laboratory results Normal [facility] Phosphate [Mass/Vol] 3.8 mg/dL 2.3 - 4 .7 mg/dL [facility] Progress Noteon 08-06-2024 Progress Note Normal [facility] Progress Note Normal [facility] Progress Note Normal [facility] SODIUM, URINE, RANDOMon 07-16 Sodium (U) [Moles/Vol] 21 mmol/L Normal [facility] Comment on above: Performed By: #### L AB439, [id number] ####Pin Setter: JULI JONES ([id number])[facility])[address] [place] [address] SODIUM, URINE, FRACTIONAL EXCRETION 1.4 Normal [facility] Comment on above: Performed By: #### L AB439, [id number] ####Pin Setter: JULI JONES ([id number])[facility] ([facility])[address] [place] [address] SODIUM, URINE, TUBULAR REABSORPTION 1.0 Normal [facility] Comment on above: Performed By: #### L AB439, [id number] ####Pin Setter: JULI JONES ([id number])[facility])[address] [place] [address] THYROID STIMULATING HORMONEo n 08-06-2024 THYROID STIMULATING HORMONE 0.72 uIU/mL Normal 0.35-4.94 [facility] Comment on above: Performed By: #### L [id number] ####Pin Setter: JULI JONES ([id number])[facility] ([facility])[address] [place] [address]#### [id number] ####Pin Setter: BRENDA JEAN ([id number])[facility] [place] [address] TSH Qnon 08-06-2024 Interpretation and review of laboratory results Normal [facility] US RETROPERITONEUM LIMITEDon 08-06-2024 US RETROPERITONEUM LIMITED Normal [facility] US Retroperitoneum limitedon 08-06-2024 Limited exam. The le ft kidney is not visualized. No right hydronephrosis. Questionable increased right renal echogenicity, which could be technical or due to chronic medical renal disease. Report Dictated on Electronically Signed By: Jose F Solomon MD Electronically Signed Date/Time: 08/06/2024 4:13 PM EST [facility] Patient Name: JESSY WEN : 1965 Exam Date/Time: 08/06/2024 13:51 Procedure: US RETROPERITONEUM LIMITED Ordering Provider: NGUYEN CHARINA Reason For Exam: ACUTE KIDNEY INJURY EXAMINATION: RENAL ULTRASOUND HISTORY: Acute kidney injury TECHNIQUE: Sonography of the kidneys and urinary bladder was performed. Images were obtained and stored in a permanent archive. COMPARISON: Ultrasound 06/28/2023. RESULT: Right Kidney: Suboptimally visualized. -Renal length: 10.4 cm -Parenchyma: Questionably increased echogenicity. Normal parenchymal thickness. -Collecting system: No hydronephrosis. -Calculus: No echogenic, shadowing calculus. -Lesion: Anechoic exophytic cyst with posterior acoustic enhancement measuring up to 2.1 cm. Left Kidney: Not visualized due to bowel gas and patient inability to lay on side. Bladder: Normal sonographic appearance. [facility] Jose F Solomon MD - 08/06/2024 Patient Name: JESSY MCKEON : 1965 Exam Date/Time: 08/06/2024 13:51 Procedure: US RETROPERITONEUM LIMITED Ordering Provider: NGUYEN CHARINA Reason For Exam: ACUTE KIDNEY INJURY EXAMINATION: RENAL ULTRASOUND HISTORY: Acute kidney injury TECHNIQUE: Sonography of the kidneys and urinary bladder was performed. Images were obtained and stored in a permanent archive. COMPARISON: Ultrasound 06/28/2023. RESULT: Right Kidney: Suboptimally visualized. -Renal length: 10.4 cm -Parenchyma: Questionably increased echogenicity. Normal parenchymal thickness. -Collecting system: No hydronephrosis. -Calculus: No echogenic, shadowing calculus. -Lesion: Anechoic exophytic cyst with posterior acoustic enhancement measuring up to 2.1 cm. Left Kidney: Not visualized due to bowel gas and patient inability to lay on side. Bladder: Normal sonographic appearance. IMPRESSION: Limited exam. The left kidney is not visualized. No right hydronephrosis. Questionable increased right renal echogenicity, which could be technical or due to chronic medical renal disease. Report Dictated on Electronically Signed By: Jose F Solomon MD Electronically Signed Date/Time: 08/06/2024 4:13 PM EST [facility] Radiology Study observation (narrative) [facility] US Retroperitoneum limitedOr dered By: Jose F Solomon on 08-06-2024 [facility] [employer] Work Phone: 30on 08-05-2024 30 Normal [facility] COMPLETE URINALYSISon 2023 BACTERIA (#/HPF) IN URINE Many Abnormal Negative [facility] Comment on above: Performed By: #### L AB347, [id number] ####Pin Setter: JULI JONES ([id number])[facility] ([facility])[address] [place] [address] BILIRUBIN, TOTAL PRESENCE IN URINE Negative Normal Negative [facility] Comment on above: Performed By: #### L AB347, [id number] ####Pin Setter: JULI JONES ([id number])[facility] ([facility])[address] [place] [address] Clarity (U) Extra Turbid Abnormal Clear [facility] Comment on above: Performed By: #### L AB347, [id number] ####Pin Setter: JULI JONES ([id number])[facility] ([facility])[address] [place] [address] Color (U) Yellow Normal Lt. Yellow [facility] Comment on above: Performed By: #### L AB347, [id number] ####Pin Setter: JULI JONES ([id number])[facility])[address] [place] [address] [place] GLUCOSE (MG/DL) IN URINE Normal Normal Normal (<70) [facility] Comment on above: Performed By: #### L AB347, [id number] ####Pin Setter: JULI JONES ([id number])[facility] ([facility])[address] [place] [address] [place] HEMOGLOBIN PRESENCE IN URINE 0.03 mg/dL Abnormal Negative [facility] Comment on above: Performed By: #### L AB347, [id number] ####Pin Setter: JULI JONES ([id number])[facility] ([facility])[address] [place] [address] HYALINE CASTS (#/LPF) IN URINE SEDIMENT BY MICROSCOPY Negative Normal Negative [facility] Comment on above: Performed By: #### L AB347, [id number] ####Pin Setter: JULI JONES ([id number])[facility] ([facility])[address] [place] [address] Ketones Ql (U) Negative Normal Negative [facility] Comment on above: Performed By: #### L AB347, [id number] ####Pin Setter: JULI JONES ([id number])[facility] ([facility])[address] [place] [address] LEUKOCYTE ESTERASE PRESENCE IN URINE BY TEST STRIP 500 Devang/uL Abnormal Negative [facility] Comment on above: Performed By: #### L AB347, [id number] ####Pin Setter: JULI JONES ([id number])[facility] ([facility])[address] [place] [address] [place] MUCUS (#/LPF) IN URINE SEDIMENT Few Normal Negative [facility] Comment on above: Performed By: #### L AB347, [id number] ####Pin Setter: JULI JONES ([id number])[facility] ([facility])[address] [place] [address] NITRITE PRESENCE IN URINE Negative Normal Negative [facility] Comment on above: Performed By: #### L AB347, [id number] ####Pin Setter: JULI JONES ([id number])[facility] ([facility])[address] [place] [address] pH (U) 5.5 [pH] Normal 5.0-8.0 [facility] Comment on above: Performed By: #### L AB347, [id number] ####Pin Setter: JULI JONES ([id number])[facility] ([facility])[address] [place] [address] [place] Protein (U) [Mass/Vol] 50 mg/dL Abnormal Negative [facility] Comment on above: Performed By: #### L AB347, [id number] ####Pin Setter: JULI JONES ([id number])[facility] ([facility])[address] [place] [address] [place] RBC (#/HPF) IN URINE SEDIMENT 26-50 Abnormal 0-2 [facility] Comment on above: Performed By: #### L AB347, [id number] ####Pin Setter: JULI JONES ([id number])[facility] ([facility])[address] [place] [address] Specific gravity (U) [Rel density] 1.005 Normal 1.005-1.03 0 [facility] Comment on above: Performed By: #### L AB347, [id number] ####Pin Setter: JULI JONES ([id number])[facility] ([facility])[address] [place] [address] SQUAMOUS EPITHELIAL CELLS (#/HPF) IN URINE SEDIMENT 3-5 Normal 3-5 [facility] Comment on above: Performed By: #### L AB347, [id number] ####Pin Setter: JULI JONES ([id number])[facility] ([facility])[address] [place] [address] UROBILINOGEN (MG/DL) IN URINE Normal Normal Normal (0-1) [facility] Comment on above: Performed By: #### L AB347, [id number] ####Pin Setter: JULI JONES ([id number])[facility] ([facility])[address] [place] [address] [place] WBC (LEUKOCYTE) (#/HPF) IN URINE SEDIMENT >100 Abnormal 0-5 [facility] Comment on above: Performed By: #### L AB347, [id number] ####Pin Setter: JULI JONES ([id number])[facility] ([facility])[address] [place] [address] [place] WBC (LEUKOCYTE) CLUMPS (#/HPF) IN URINE SEDIMENT Many Abnormal Negative [facility] Comment on above: Performed By: #### L AB347, [id number] ####Pin Setter: JULI JONES ([id number])[address] Nursing Noteon 08-05-2024 Nursing Note Pt refused bloodwork multiple times throughout night, benefits of daily bloodwork explained to pt. Unable to collect bloodwork, provider notified. Normal [facility] Progress Noteon 08-05-2024 Progress Note Normal [facility] Progress Note Nutrition rescreen completed. Chart reviewed. 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 Normal [facility] Progress Note Normal [facility] URINE CULTUREon 08-05-2024 Bacteria identified Cx Nom (U) Normal [facility] Comment on above: Performed By: #### L AB347, [id number] ####Pin Setter: JULI JONES ([id number])[address] Urinalysis complete panel (U )Ordered By: Zehra Dougherty on 08-05-2024 Bacteria LM.HPF (Urine sed) [#/Area] Many Abnormal Negative /HPF [facility] Bilirubin Ql (U) Negative Negative mg/dL [facility] Clarity (U) Extra Turbid Abnormal Clear [facility] Color (U) Yellow Lt. Yellow [facility] Epithelial cells.squamous LM.HPF (Urine sed) [#/Area] 3-5 [facility] Glucose Ql (U) Normal Normal (<70) mg/dL [facility] Hemoglobin Ql (U) 0.03 mg/dL Abnormal Negative [facility] Hyaline casts Auto (Urine sed) [#/Area] Negative Negative /LPF [facility] Interpretation and review of laboratory results Abnormal [facility] Ketones (U) [Mass/Vol] Negative Negat jayne mg/dL [facility] Leukocyte clumps LM.HPF (Urine sed) [#/Area] Many Abnormal Negative /HPF [facility] Leukocyte esterase Test strip Ql (U) 500 Abnormal Negative Devang/uL [facility] Mucus LM.HPF (Urine sed) [#/Area] Few Negative /LPF [facility] Nitrite Ql (U) Negative Negative [facility] pH (U) 5.5 [pH] 5.0 - 8.0 pH [facility] Protein (U) [Mass/Vol] 50 mg/dL Abnormal Negative [facility] RBC LM.HPF (Urine sed) [#/Area] 26-50 Abnormal [facility] Specific gravity (U) [Rel density] 1.005 1.005 - 1.030 [facility] Urobilinogen (U) [Mass/Vol] Normal Normal (0-1) mg/dL [facility] WBC LM.HPF (Urine sed) [#/Area] /[HPF] Abnormal [facility] 30on --2023 30 Normal [facility] 30 Normal [facility] 30 Normal [facility] BASIC METABOLIC PANELon 07-16 Anion gap [Moles/Vol] 7 mmol/L Normal 3-13 [facility] Comment on above: Performed By: #### L AB15 ####Pin Setter: JULI JONES ([id number])[facility])[address] [place] [address] Calcium [Mass/Vol] 8.9 mg/dL Normal 8.4-10.2 [facility] Comment on above: Performed By: #### L AB15 ####Pin Setter: JULI JONES ([id number])[facility])[address] [place] [address] Chloride [Moles/Vol] 105 mmol/L Normal 98-107 [facility] Comment on above: Performed By: #### L AB15 ####Pin Setter: JULI JONES ([id number])[facility])[address] [place] [address] CO2 [Moles/Vol] 24 mmol/L Normal 22-29 [facility] Comment on above: Performed By: #### L AB15 ####Pin Setter: JULI JONSE ([id number])[facility])[address] [place] [address] Creatinine [Mass/Vol] 2.88 mg/dL High 0.57-1.11 [facility] Comment on above: Performed By: #### L AB15 ####Pin Setter: JULI [id number])[facility])[address] [place] [address] GLOMERULAR FILTRATION RATE ML/MIN/1.73 SQ M.PREDICTED 18.5 mL/min/1.73m*2 Low >60.0 [facility] Comment on above: Result Comment: Calc ulation based on the Chronic Kidney Disease Epidemiology Collaboration (CKD-EPI) equation refit without adjustment for race Performed By: #### L AB15 ####Pin Setter: JULI JONES ([id number])[facility] ([facility])[address] [place] [address] Glucose [Mass/Vol] 95 mg/dL Normal 74-100 [facility] Comment on above: Performed By: #### L AB15 ####Pin Setter: JULI JONES ([id number])[facility])[address] [place] [address] Potassium [Moles/Vol] 3.9 mmol/L Normal 3.5-5.1 [facility] Comment on above: Result Comment: [facility] potassium values may be up to 0.5 mmol/L lower than serum values. Performed By: #### L AB15 ####Pin Setter: JULI JONES ([id number])[facility])[address] [place] [address] Sodium [Moles/Vol] 136 mmol/L Normal 136-145 [facility] Comment on above: Performed By: #### L AB15 ####Pin Setter: JULI JONES ([id number])[facility])[address] [place] [address] [place] Urea nitrogen [Mass/Vol] 23 mg/dL Normal 9-23 [facility] Comment on above: Performed By: #### L AB15 ####Pin Setter: JULI JONES ([id number])[facility])[address] [place] [address] Basic metabolic 1998 panelon 08-04-2024 Anion gap [Moles/Vol] 7 mmol/L 3 - 13 mmol/L [facility] Calcium [Mass/Vol] 8.9 mg/dL 8.4 - 10. 2 mg/dL [facility] Chloride [Moles/Vol] 105 mmol/L 98 - 10 7 mmol/L [facility] [employer] CO2 [Moles/Vol] 24 mmol/L 22 - 29 mmol/L [facility] Creatinine [Mass/Vol] 2.88 mg/dL High 0.57 - 1.11 mg/dL [facility] GFR/1.73 sq M.predicted (S/P/Bld) [Vol rate/Area] 18.5 mL/min Low - PINF [facility] Comment on above: Calculation based on the Chronic Kidney Disease Epidemiology Collaboration (CKD-EPI) equation refit without adjustment for race Glucose [Mass/Vol] 95 mg/dL 74 - 100 mg/dL [facility] Interpretation and review of laboratory results Abnormal [facility] Potassium [Moles/Vol] 3.9 mmol/L 3.5 - 5.1 mmol/L [facility] Comment on above: Plasma potassium [place] may be up to 0.5 mmol/L lower than serum values. Sodium [Moles/Vol] 136 mmol/L 136 - 145 mmol/L [facility] Urea nitrogen [Mass/Vol] 23 mg/dL 9 - 23 mg/dL [facility] CBC W Auto Differential pane l (Bld)on 08-04-2024 Basophils (Bld) [#/Vol] 0 10*3/uL 0.0 - 0.2 10*3/uL [facility] Basophils/100 WBC (Bld) 0.3 % 0.0 - 2.0 % [facility] Eosinophils (Bld) [#/Vol] 0.1 10*3/uL 0.0 - 0.5 10*3/uL [facility] Eosinophils/100 WBC (Bld) 1.2 % 0.0 - 6.0 % [facility] Erythrocyte distribution width (RBC) [Ratio] 13.2 % 11.5 - 15.0 % [facility] Hematocrit (Bld) [Volume fraction] 27.4 % Low 35.0 - 47.0 % [facility] Hemoglobin (Bld) [Mass/Vol] 8.8 g/dL Low 11.7 - 16.0 g/dL [facility] Immature granulocytes (Bld) [#/Vol] 0.1 10*3/uL High NINF - 0.1 10*3/uL [facility] Immature granulocytes/100 WBC (Bld) 0.7 % 0.0 - 2.0 % [facility] Interpretation and review of laboratory results Abnormal [facility] Lymphocytes (Bld) [#/Vol] 1.2 10*3/uL 1.0 - 4.3 10*3/uL [facility] Lymphocytes/100 WBC (Bld) 15.2 % 15.0 - 45.0 % [facility] MCH (RBC) [Entitic mass] 31.2 pg 26.0 - 34.0 pg [facility] MCHC (RBC) [Mass/Vol] 32.1 % 30.5 - 36.0 % [facility] MCV (RBC) [Entitic vol] 97.2 fL 77.0 - 99.0 fL [facility] Monocytes (Bld) [#/Vol] 0.8 10*3/uL 0.0 - 0.9 10*3/uL [facility] Monocytes/100 WBC (Bld) 10.4 % 5.0 - 13.0 % [facility] Neutrophils (Bld) [#/Vol] 5.5 10*3/uL 1.8 - 7.5 10*3/uL [facility] Neutrophils/100 WBC (Bld) 72.2 % 38.0 - 82.0 % [facility] Nucleated RBC/100 WBC (Bld) [Ratio] 0 % [facility] Platelet mean volume (Bld) [Entitic vol] 9.3 fL 9.0 - 12.7 fL [facility] Platelets (Bld) [#/Vol] 228 10*3/uL 140 - 440 10*3/uL [facility] RBC (Bld) [#/Vol] 2.82 10*6/uL Low 3.80 - 5.20 10*6/uL [facility] WBC (Bld) [#/Vol] 7.6 10*3/uL 3.6 - 10.7 10*3/uL [facility] CBC WITH AUTO DIFFERENTIALon 08-04-2024 Basophils (Bld) [#/Vol] 0.0 10*3/uL Normal 0.0-0.2 [facility] Comment on above: Performed By: #### L [id number] ####Pin Setter: JULI JONES ([id number])[facility])[address] [place] [address] Basophils/100 WBC (Bld) 0.3 % Normal 0.0-2.0 [facility] Comment on above: Performed By: #### L [id number] ####Pin Setter: JULI JONES ([id number])[facility])[address] [place] [address] Eosinophils (Bld) [#/Vol] 0.1 10*3/uL Normal 0.0-0.5 [facility] Comment on above: Performed By: #### L [id number] ####Pin Setter: JULI JONES ([id number])[address] Eosinophils/100 WBC (Bld) 1.2 % Normal 0.0-6.0 [facility] Comment on above: Performed By: #### L [id number] ####Pin Setter: JULI JONES ([id number])[facility])[address] [place] [address] Erythrocyte distribution width (RBC) [Ratio] 13.2 % Normal 11.5-15.0 [facility] Comment on above: Performed By: #### L [id number] ####Pin Setter: JULI JONES ([id number])[address] Hematocrit (Bld) [Volume fraction] 27.4 % Low 35.0-47.0 [facility] Comment on above: Performed By: #### L [id number] ####Pin Setter: JULI JONES ([id number])[facility])[address] [place] [address] Hemoglobin (Bld) [Mass/Vol] 8.8 g/dL Low 11.7-16.0 [facility] Comment on above: Performed By: #### L [id number] ####Pin Setter: JULI JONES ([id number])[facility])[address] [place] [address] IMMATURE GRANS % 0.7 % Normal 0.0-2.0 [facility] Comment on above: Performed By: #### L [id number] ####Pin Setter: JULI JONES ([id number])[address] IMMATURE GRANS ABSOLUTE 0.1 10*3/uL High <0.1 [facility] Comment on above: Performed By: #### L [id number] ####Pin Setter: JULI JONES ([id number])[facility])[address] [place] [address] Lymphocytes (Bld) [#/Vol] 1.2 10*3/uL Normal 1.0-4.3 [facility] Comment on above: Performed By: #### L [id number] ####Pin Setter: JULI JONES ([id number])[address] Lymphocytes/100 WBC (Bld) 15.2 % Normal 15.0-45.0 [facility] Comment on above: Performed By: #### L [id number] ####Pin Setter: JULI JONES ([id number])[address] MCH (RBC) [Entitic mass] 31.2 pg Normal 26.0-34.0 [facility] Comment on above: Performed By: #### L [id number] ####Pin Setter: JULI JONES ([id number])[address] MCHC 32.1 % Normal 30.5-36.0 [facility] Comment on above: Performed By: #### L [id number] ####Pin Setter: JULI JONES ([id number])[address] MCV (RBC) [Entitic vol] 97.2 fL Normal 77.0-99.0 [facility] Comment on above: Performed By: #### L [id number] ####Pin Setter: JULI JONES ([id number])[facility] ([facility])[address] [place] [address] Monocytes (Bld) [#/Vol] 0.8 10*3/uL Normal 0.0-0.9 [facility] Comment on above: Performed By: #### L [id number] ####Pin Setter: JULI JONES ([id number])[facility] ([facility])[address] [place] [address] Monocytes/100 WBC (Bld) 10.4 % Normal 5.0-13.0 [facility] Comment on above: Performed By: #### L [id number] ####Pin Setter: JULI JONES ([id number])[facility])[address] [place] [address] NEUTROPHILS ABSOLUTE 5.5 10*3/uL Normal 1.8-7.5 [facility] Comment on above: Performed By: #### L [id number] ####Pin Setter: JULI JONES ([id number])[facility] ([facility])[address] [place] [address] Neutrophils/100 WBC (Bld) 72.2 % Normal 38.0-82.0 [facility] Comment on above: Performed By: #### L [id number] ####Pin Setter: JULI JONES ([id number])[facility])[address] [place] [address] NRBC 0.0 /100 WBCs Normal 0.0-2.0 [facility] Comment on above: Performed By: #### L [id number] ####Pin Setter: JULI JONES ([id number])[facility])[address] [place] [address] Platelet mean volume (Bld) [Entitic vol] 9.3 fL Normal 9.0-12.7 [facility] Comment on above: Performed By: #### L [id number] ####Pin Setter: JULI JONES ([id number])[facility] ([facility])[address] [place] [address] Platelets (Bld) [#/Vol] 228 10*3/uL Normal 140-440 [facility] Comment on above: Performed By: #### L [id number] ####Pin Setter: JULI JONES ([id number])[facility])[address] [place] [address] RBC (Bld) [#/Vol] 2.82 10*6/uL Low 3.80-5.20 [facility] Comment on above: Performed By: #### L [id number] ####Pin Setter: JULI JONES ([id number])[facility])[address] [place] [address] WBC (Bld) [#/Vol] 7.6 10*3/uL Normal 3.6-10.7 [facility] Comment on above: Performed By: #### L [id number] ####Pin Setter: JULI JONES ([id number])[facility] ([facility])[address] [place] [address] Consulton 08-04-2024 Consult Normal [facility] Progress Noteon 08-04-2024 Progress Note Normal [facility] Progress Note Normal [facility] 30on 08-03-2024 30 Normal [facility] CBC W Auto Differential pane l (Bld)on 08-03-2024 Basophils (Bld) [#/Vol] 0 10*3/uL 0.0 - 0.2 10*3/uL [facility] Basophils/100 WBC (Bld) 0.2 % 0.0 - 2.0 % [facility] Eosinophils (Bld) [#/Vol] 0.1 10*3/uL 0.0 - 0.5 10*3/uL [facility] Eosinophils/100 WBC (Bld) 1.7 % 0.0 - 6.0 % [facility] Erythrocyte distribution width (RBC) [Ratio] 13.4 % 11.5 - 15.0 % [facility] Hematocrit (Bld) [Volume fraction] 27.8 % Low 35.0 - 47.0 % [facility] Hemoglobin (Bld) [Mass/Vol] 9.2 g/dL Low 11.7 - 16.0 g/dL [facility] Immature granulocytes (Bld) [#/Vol] 0.1 10*3/uL High NINF - 0.1 10*3/uL [facility] Immature granulocytes/100 WBC (Bld) 0.7 % 0.0 - 2.0 % [facility] Interpretation and review of laboratory results Abnormal [facility] Lymphocytes (Bld) [#/Vol] 2.2 10*3/uL 1.0 - 4.3 10*3/uL [facility] Lymphocytes/100 WBC (Bld) 26.4 % 15.0 - 45.0 % [facility] MCH (RBC) [Entitic mass] 31.7 pg 26.0 - 34.0 pg [facility] MCHC (RBC) [Mass/Vol] 33.1 % 30.5 - 36.0 % [facility] MCV (RBC) [Entitic vol] 95.9 fL 77.0 - 99.0 fL [facility] Monocytes (Bld) [#/Vol] 1.1 10*3/uL High 0.0 - 0.9 10*3/uL [facility] Monocytes/100 WBC (Bld) 13.2 % High 5.0 - 13.0 % [facility] Neutrophils (Bld) [#/Vol] 4.8 10*3/uL 1.8 - 7.5 10*3/uL [facility] Neutrophils/100 WBC (Bld) 57.8 % 38.0 - 82.0 % [facility] Nucleated RBC/100 WBC (Bld) [Ratio] 0 % [facility] Platelet mean volume (Bld) [Entitic vol] 9.6 fL 9.0 - 12.7 fL [facility] Comment on above: MPV is a calculated measurement using platelet volume ratio Platelets (Bld) [#/Vol] 229 10*3/uL 140 - 440 10*3/uL [facility] RBC (Bld) [#/Vol] 2.9 10*6/uL Low 3.80 - 5.20 10*6/uL [facility] WBC (Bld) [#/Vol] 8.4 10*3/uL 3.6 - 10.7 10*3/uL [facility] CBC WITH AUTO DIFFERENTIALon 08-03-2024 Basophils (Bld) [#/Vol] 0.0 10*3/uL Normal 0.0-0.2 [facility] Comment on above: Performed By: #### L [id number] ####Pin Setter: JULI JONES ([id number])[facility] ([facility])[address] [place] [address] [place] Basophils/100 WBC (Bld) 0.2 % Normal 0.0-2.0 [facility] Comment on above: Performed By: #### L [id number] ####Pin Setter: JULI JONES ([id number])[facility] ([facility])[address] [place] [address] [place] Eosinophils (Bld) [#/Vol] 0.1 10*3/uL Normal 0.0-0.5 [facility] Comment on above: Performed By: #### L [id number] ####Pin Setter: JULI JONES ([id number])[facility] ([facility])[address] [place] [address] [place] Eosinophils/100 WBC (Bld) 1.7 % Normal 0.0-6.0 [facility] Comment on above: Performed By: #### L [id number] ####Pin Setter: JULI JONES ([id number])[facility] ([facility])[address] [place] [address] Erythrocyte distribution width (RBC) [Ratio] 13.4 % Normal 11.5-15.0 [facility] Comment on above: Performed By: #### L [id number] ####Pin Setter: JULI JONES ([id number])[facility] ([facility])[address] [place] [address] Hematocrit (Bld) [Volume fraction] 27.8 % Low 35.0-47.0 [facility] Comment on above: Performed By: #### L [id number] ####Pin Setter: JULI JONES ([id number])[facility] ([facility])[address] [place] [address] Hemoglobin (Bld) [Mass/Vol] 9.2 g/dL Low 11.7-16.0 [facility] Comment on above: Performed By: #### L [id number] ####Pin Setter: JULI JONES ([id number])[facility]ITAL[facility] ([facility])[address] [place] [address] IMMATURE GRANS % 0.7 % Normal 0.0-2.0 [facility] Comment on above: Performed By: #### L [id number] ####Pin Setter: JULI JONES ([id number])[facility] ([facility])[address] [place] [address] IMMATURE GRANS ABSOLUTE 0.1 10*3/uL High <0.1 [facility] Comment on above: Performed By: #### L [id number] ####Pin Setter: JULI JONES ([id number])[facility] ([facility])[address] [place] [address] Lymphocytes (Bld) [#/Vol] 2.2 10*3/uL Normal 1.0-4.3 [facility] Comment on above: Performed By: #### L [id number] ####Pin Setter: JULI JONES ([id number])[facility] ([facility])[address] [place] [address] [place] Lymphocytes/100 WBC (Bld) 26.4 % Normal 15.0-45.0 [facility] Comment on above: Performed By: #### L [id number] ####Pin Setter: JULI JONES ([id number])[facility] ([facility])[address] [place] [address] MCH (RBC) [Entitic mass] 31.7 pg Normal 26.0-34.0 [facility] Comment on above: Performed By: #### L [id number] ####Pin Setter: JULI JONES ([id number])[facility] ([facility])[address] MCHC 33.1 % Normal 30.5-36.0 [facility] Comment on above: Performed By: #### L [id number] ####Pin Setter: JULI JONES ([id number])[facility] ([facility])[address] [place] [address] MCV (RBC) [Entitic vol] 95.9 fL Normal 77.0-99.0 [facility] Comment on above: Performed By: #### L [id number] ####Pin Setter: JULI JONES ([id number])[facility] ([facility])[address] [place] [address] Monocytes (Bld) [#/Vol] 1.1 10*3/uL High 0.0-0.9 [facility] Comment on above: Performed By: #### L [id number] ####Pin Setter: JULI JONES ([id number])[facility] ([facility])[address] [place] [address] [place] Monocytes/100 WBC (Bld) 13.2 % High 5.0-13.0 [facility] Comment on above: Performed By: #### L [id number] ####Pin Setter: JULI JONES ([id number])[facility]ITALJ[facility] ([facility])[address] [place] [address] [place] NEUTROPHILS ABSOLUTE 4.8 10*3/uL Normal 1.8-7.5 [facility] Comment on above: Performed By: #### L [id number] ####Pin Setter: JULI JONES ([id number])[facility] ([facility])[address] Neutrophils/100 WBC (Bld) 57.8 % Normal 38.0-82.0 [facility] Comment on above: Performed By: #### L [id number] ####Pin Setter: JULI JONES ([id number])[facility] ([facility])[address] NRBC 0.0 /100 WBCs Normal 0.0-2.0 [facility] Comment on above: Performed By: #### L [id number] ####Pin Setter: JULI JONES ([id number])[facility] ([facility])[address] [place] [address] Platelet mean volume (Bld) [Entitic vol] 9.6 fL Normal 9.0-12.7 [facility] Comment on above: Result Comment: MPV is a calculated measurement using platelet volume ratio Performed By: #### L [id number] ####Pin Setter: JULI JONES ([id number])[facility]ITAL[facility] ([facility])[address] [place] [address] [place] Platelets (Bld) [#/Vol] 229 10*3/uL Normal 140-440 [facility] Comment on above: Performed By: #### L [id number] ####Pin Setter: JULI JONES ([id number])[facility]ITAL[facility] ([facility])[address] [place] [address] RBC (Bld) [#/Vol] 2.90 10*6/uL Low 3.80-5.20 [facility] Comment on above: Performed By: #### L [id number] ####Pin Setter: JULI JONES ([id number])[facility]ITAL[facility] ([facility])[address] [place] [address] [place] WBC (Bld) [#/Vol] 8.4 10*3/uL Normal 3.6-10.7 [facility] Comment on above: Performed By: #### L [id number] ####Pin Setter: JULI JONES ([id number])[facility]ITALJ[facility] ([facility])[address] [place] [address] COMPREHENSIVE METABOLIC PANE Nestor 08-03-2024 Albumin [Mass/Vol] 3.2 g/dL Low 3.5-5.0 [facility] Comment on above: Performed By: #### L AB106, LAB17 ####Pin Setter: JULI JONES ([id number])[facility]A [facility] ([facility])[address] ALP [Catalytic activity/Vol] 75 U/L Normal 40-150 [facility] Comment on above: Performed By: #### L AB106, LAB17 ####Pin Setter: JULI JONES ([id number])[facility] ([facility])[address] ALT [Catalytic activity/Vol] U/L Normal <30 [facility] Comment on above: Performed By: #### L AB106, LAB17 ####Pin Setter: JULI JONES ([id number])[facility] ([facility])[address] Anion gap [Moles/Vol] 6 mmol/L Normal 3-13 [facility] Comment on above: Performed By: #### L AB106, LAB17 ####Pin Setter: JULI JONES ([id number])[facility] ([facility])[address] AST [Catalytic activity/Vol] 20 U/L Normal <34 [facility] Comment on above: Performed By: #### L AB106, LAB17 ####Pin Setter: JULI JONES ([id number])[facility] ([facility])[address] [place] [address] [place] Bilirubin [Mass/Vol] 0.3 mg/dL Normal <1.2 [facility] Comment on above: Performed By: #### L AB106, LAB17 ####Pin Setter: JULI JONES ([id number])[facility] ([facility])[address] [place] [address] [place] Calcium [Mass/Vol] 9.1 mg/dL Normal 8.4-10.2 [facility] Comment on above: Performed By: #### L AB106, LAB17 ####Pin Setter: JULI JONES ([id number])[facility]ITALJ[facility] ([facility])[address] [place] [address] [place] Chloride [Moles/Vol] 101 mmol/L Normal 98-107 [facility] Comment on above: Performed By: #### L AB106, LAB17 ####Pin Setter: JULI JONES ([id number])[facility]ITALJohanny MATOSROSALIE [facility] ([facility])[address] [place] [address] [place] CO2 [Moles/Vol] 24 mmol/L Normal 22-29 [facility] Comment on above: Performed By: #### L AB106, LAB17 ####Pin Setter: JULI JONES ([id number])[facility]ITALJ[facility] ([facility])[address] [place] [address] [place] Creatinine [Mass/Vol] 2.94 mg/dL High 0.57-1.11 [facility] Comment on above: Performed By: #### L AB106, LAB17 ####Pin Setter: JULI JONES ([id number])[facility]ITALJ[facility] ([facility])[address] [place] [address] [place] GLOMERULAR FILTRATION RATE ML/MIN/1.73 SQ M.PREDICTED 18.1 mL/min/1.73m*2 Low >60.0 [facility] Comment on above: Result Comment: Calc ulation based on the Chronic Kidney Disease Epidemiology Collaboration (CKD-EPI) equation refit without adjustment for race Performed By: #### L AB106, LAB17 ####Pin Setter: JULI JONES ([id number])[facility]ITALJ[facility] ([facility])[address] [place] [address] [place] Glucose [Mass/Vol] 85 mg/dL Normal 74-100 [facility] Comment on above: Performed By: #### L AB106, LAB17 ####Pin Setter: JULI JONES ([id number])[facility]ITALJ[facility] ([facility])[address] [place] [address] Potassium [Moles/Vol] 4.4 mmol/L Normal 3.5-5.1 [facility] Comment on above: Result Comment: [facility] potassium values may be up to 0.5 mmol/L lower than serum values. Performed By: #### L AB106, LAB17 ####Pin Setter: JULI JONES ([id number])[facility]ITALJ[facility]VAL[facility] ([facility])[address] [place] [address] Protein [Mass/Vol] 6.9 g/dL Normal 6.4-8.3 [facility] Comment on above: Performed By: #### L AB106, LAB17 ####Pin Setter: JULI JONES ([id number])[facility]ITALJ[facility] ([facility])[address] [place] [address] Sodium [Moles/Vol] 131 mmol/L Low 136-145 [facility] Comment on above: Performed By: #### L AB106, LAB17 ####Pin Setter: JULI JONES ([id number])[facility]ITALJ[facility] ([facility])[address] [place] [address] Urea nitrogen [Mass/Vol] 23 mg/dL Normal 9-23 [facility] Comment on above: Performed By: #### L AB106, LAB17 ####Pin Setter: JULI JONES ([id number])[facility]ITALJ[facility] ([facility])[address] [place] [address] Comprehensive metabolic 1998 panelon 08-03-2024 Albumin [Mass/Vol] 3.2 g/dL Low 3.5 - 5.0 g/dL [facility] ALP [Catalytic activity/Vol] 75 U/L 40 - 150 U/L [facility] ALT [Catalytic activity/Vol] U/L NINF - 30 U/L [facility] Anion gap [Moles/Vol] 6 mmol/L 3 - 13 mmol/L [facility] AST [Catalytic activity/Vol] 20 U/L NINF - 34 U/L [facility] Bilirubin [Mass/Vol] 0.3 mg/dL NINF - 1.2 mg/dL [facility] Calcium [Mass/Vol] 9.1 mg/dL 8.4 - 10. 2 mg/dL [facility] Chloride [Moles/Vol] 101 mmol/L 98 - 10 7 mmol/L [facility] CO2 [Moles/Vol] 24 mmol/L 22 - 29 mmol/L [facility] Creatinine [Mass/Vol] 2.94 mg/dL High 0.57 - 1.11 mg/dL [facility] GFR/1.73 sq M.predicted (S/P/Bld) [Vol rate/Area] 18.1 mL/min Low - PINF [facility] Comment on above: Calculation based on the Chronic Kidney Disease Epidemiology Collaboration (CKD-EPI) equation refit without adjustment for race Glucose [Mass/Vol] 85 mg/dL 74 - 100 mg/dL [facility] Interpretation and review of laboratory results Abnormal [facility] Potassium [Moles/Vol] 4.4 mmol/L 3.5 - 5.1 mmol/L [facility] Comment on above: Plasma potassium bats[place] ues may be up to 0.5 mmol/L lower than serum values. Protein [Mass/Vol] 6.9 g/dL 6.4 - 8.3 g/dL [facility] Sodium [Moles/Vol] 131 mmol/L Low 136 - 145 mmol/L [facility] Urea nitrogen [Mass/Vol] 23 mg/dL 9 - 23 mg/dL [facility] D-DIMER,QUANTITATIVEon 08-03 D-DIMER, INNOVANCE 0.74 mg/L High <0.50 [facility] Comment on above: Result Comment: ORDE R COMMENTS:Innovance D-Dimer values of <0.50 mg/L FEU can be used in combination with a pre-test probability model (e.g. Well's) to exclude pulmonary embolism (PE) disease, as well as an aid in the diagnosis of deep vein thrombosis (DVT). Performed By: #### L [id number] ####Pin Setter: JULI JONES ([id number])[facility] ([facility])[address] ED Nursing Noteon 08-03-2024 ED Nursing Note Paramedics here to g et the pt to be transferred to [facility]. Normal [facility] ED Nursing Note Pt incontinent of ur ine with depends changed. Warm blankets provided and pt updated of admission status and estimated transfer times. Normal [facility] ED Nursing Note Pt sleeping with eye s closed and respirations even and unlabored. Lights are dimmed for comfort. Normal [facility] ED Nursing Note Pt declines offers o f bedside commode at current time. Pt updated and aware of admission status Normal [facility] ED Nursing Note Ice chips provided. Pt remains somnolent but wakes up easily to stimuli Pt repositioned with additional warm blankets provided. Lights dimmed for comfort Normal [facility] ED Nursing Note Normal [facility] ED Provider Noteon ED Provider Note Normal [facility] Fibrin D-dimer FEU (PPP) [Ma ss/Vol]on 08-03-2024 Interpretation and review of laboratory results Abnormal [facility] D-Dimer va lues of <0.50 mg/L FEU can be used in combination with a pre-test probability model (e.g. Well's) to exclude pulmonary embolism (PE) disease, as well as an aid in the diagnosis of deep vein thrombosis (DVT). [facility] Laboratory - Chemistry and C hemistry - challengeon 08-03-2024 Glucose [Mass/Vol] 101 mg/dL High 70 - 100 mg/dL [facility] Laboratory - Coagulationon 1 10-04-2023 Fibrin D-dimer FEU (PPP) [Mass/Vol] 0.74 mg/L High NINF - 0.50 mg/L [facility] NT PRO BNPon 08-03-2024 Natriuretic peptide B (Bld) [Mass/Vol] 784 pg/mL High <125 [facility] Comment on above: Performed By: #### L AB106, LAB17 ####Pin Setter: JULI JONES ([id number])[facility] ([facility])[address] Natriuretic peptide B [Mass/ Vol]on 08-03-2024 Interpretation and review of laboratory results Abnormal [facility] Natriuretic peptide B (Bld) [Mass/Vol] 784 pg/mL High NINF - 125 pg/mL [facility] No Panel Informationon 08-03 No evidence of deep venous thrombus in the evaluated veins of the bilateral lower extremities from the inguinal ligaments to the upper calf. Posterior tibial and peroneal veins were not visualized due to patient habitus and subcutaneous edema. Report Dictated on Electronically Signed By: Vu Carpio MD Electronically Signed Date/Time: 08/03/2024 2:04 PM EST [facility] Patient Name: JESSY WEN : 1965 Exam Date/Time: 08/03/2024 13:42 Procedure: VASC US LOWER EXTREMITY VENOUS DUPLEX BILATERAL Ordering Provider: PATTON NISHIT Reason For Exam: Edema left calf BILATERAL LOWER EXTREMITY VENOUS DUPLEX ULTRASOUND CLINICAL INDICATION: Bilateral pain and edema, concern for DVT Grayscale and color Doppler sonographic images of the left and right lower extremities were obtained. COMPARISON: None. FINDINGS: There is no evidence of deep venous thrombus in the visualized portions of the bilateral common femoral veins, superficial femoral veins, popliteal veins, or visualized veins of the upper calf. The posterior tibial and peroneal veins were not visualized. Greater saphenous veins were patent. Respiratory variation and augmentation to calf pressure is noted bilaterally. There is some subcutaneous edema. [facility] Vu Carpio MD - 08/03/2024 Patient Name: JESSY MCKEON : 1965 Exam Date/Time: 08/03/2024 13:42 Procedure: VASC US LOWER EXTREMITY VENOUS DUPLEX BILATERAL Ordering Provider: PATTON NISHIT Reason For Exam: Edema left calf BILATERAL LOWER EXTREMITY VENOUS DUPLEX ULTRASOUND CLINICAL INDICATION: Bilateral pain and edema, concern for DVT Grayscale and color Doppler sonographic images of the left and right lower extremities were obtained. COMPARISON: None. FINDINGS: There is no evidence of deep venous thrombus in the visualized portions of the bilateral common femoral veins, superficial femoral veins, popliteal veins, or visualized veins of the upper calf. The posterior tibial and peroneal veins were not visualized. Greater saphenous veins were patent. Respiratory variation and augmentation to calf pressure is noted bilaterally. There is some subcutaneous edema. IMPRESSION: No evidence of deep venous thrombus in the evaluated veins of the bilateral lower extremities from the inguinal ligaments to the upper calf. Posterior tibial and peroneal veins were not visualized due to patient habitus and subcutaneous edema. Report Dictated on Electronically Signed By: Vu Carpio MD Electronically Signed Date/Time: 08/03/2024 2:04 PM [facility] Interpretation and review of laboratory results Abnormal [facility] Performed by: [facility], [address] [place] [address] CLIA ID: [id number] [facility] Progress Noteon 08-03-2024 Progress Note Chart reviewed of ED follow up Seen in [facility] ED on 08/01/24 Reason: Contusion of Right Ankle Discharge instructions: Follow up with Edith Pierce MD (Family Medicine); If symptoms worsen ED message and education sent via [employer]. Normal [facility] VASC US LOWER EXTREMITY VENO US DUPLEX BILATERALon 08-03-2024 VASC US LOWER EXTREMITY VENOUS DUPLEX BILATERAL Normal [facility] XR Pelvis 1 or 2 Viewson No fracture or dislocation. Report Dictated on Electronically Signed By: Mary Nielsen MD Electronically Signed Date/Time: 08/03/2024 1:50 PM [facility] 1965 [id number] Exam Date/Time: 08/03/2024 13:35 Procedure: XR PELVIS 1-2 VIEWS Ordering Provider: PATTON NISHIT Reason For Exam: fall AP PELVIS CLINICAL INDICATION: fall A single AP view of the pelvis was obtained. COMPARISON: None. FINDINGS: No evidence of an acute fracture of the pelvis or hips. No hip dislocation. No widening of the pubic symphysis or sacroiliac joints. No focal soft tissue abnormalities. Partially visualized spinal fusion hardware at the lumbosacral junction. [facility] Mary Nielsen M D - 08/03/2024 Patient Name: [facility]ESS[facility] MCKEON [facility] 1965 [id number] Exam Date/Time: 08/03/2024 13:35 Procedure: XR PELVIS 1-2 VIEWS Ordering Provider: PATTON NISHIT Reason For Exam: fall AP PELVIS CLINICAL INDICATION: fall A single AP view of the pelvis was obtained. COMPARISON: None. FINDINGS: No evidence of an acute fracture of the pelvis or hips. No hip dislocation. No widening of the pubic symphysis or sacroiliac joints. No focal soft tissue abnormalities. Partially visualized spinal fusion hardware at the lumbosacral junction. IMPRESSION: No fracture or dislocation. Report Dictated on Electronically Signed By: Mary Nielsen MD Electronically Signed Date/Time: 08/03/2024 1:50 PM EST [facility] Radiology Study observation (narrative) [facility] XR Pelvis 1 or 2 ViewsOrdere d By: Mary Nielsen on 08-03-2024 [facility] Work Phone: BASIC METABOLIC PANELon 07-15 Anion gap [Moles/Vol] 9 mmol/L Normal 3-13 [facility] Comment on above: Performed By: #### L AB24, LAB99, LAB15, LAB20 ####Pin Setter: BREDNA JEAN ([id number])[facility] ([facility])[address] [place] [address] Calcium [Mass/Vol] 9.0 mg/dL Normal 8.4-10.2 [facility] Comment on above: Performed By: #### L AB24, LAB99, LAB15, LAB20 ####Pin Setter: BRENDA JEAN ([id number])[facility] (SBHLAB)[address] Chloride [Moles/Vol] 102 mmol/L Normal 98-107 [facility] Comment on above: Performed By: #### L AB24, LAB99, LAB15, LAB20 ####Pin Setter: BRENDA JEAN ([id number])[facility]ITAL[facility] (SBHLAB)[address] CO2 [Moles/Vol] 21 mmol/L Low 22-29 [facility] Comment on above: Performed By: #### L AB24, LAB99, LAB15, LAB20 ####Pin Setter: BRENDA JEAN ([id number])[facility] (SBHLAB)[address] Creatinine [Mass/Vol] 3.18 mg/dL High 0.57-1.11 [facility] Comment on above: Performed By: #### L AB24, LAB99, LAB15, LAB20 ####Pin Setter: BRENDA JEAN ([id number])[facility] (SBHLAB)[address] GLOMERULAR FILTRATION RATE ML/MIN/1.73 SQ M.PREDICTED 16.4 mL/min/1.73m*2 Low >60.0 [facility] Comment on above: Result Comment: Calc ulation based on the Chronic Kidney Disease Epidemiology Collaboration (CKD-EPI) equation refit without adjustment for race Performed By: #### L AB24, LAB99, LAB15, LAB20 ####Pin Setter: BRENDA JEAN ([id number])[facility] (SBHLAB)[address] Glucose [Mass/Vol] 94 mg/dL Normal 74-100 [facility] Comment on above: Performed By: #### L AB24, LAB99, LAB15, LAB20 ####Pin Setter: BRENDA JEAN ([id number])[facility] (SBHLAB)[address] Potassium [Moles/Vol] 4.1 mmol/L Normal 3.5-5.1 [facility] Comment on above: Result Comment: [facility] potassium values may be up to 0.5 mmol/L lower than serum values. Performed By: #### L AB24, LAB99, LAB15, LAB20 ####Pin Setter: BRENDA JEAN ([id number])[facility] (SBHLAB)[address] Sodium [Moles/Vol] 132 mmol/L Low 136-145 [facility] Comment on above: Performed By: #### L AB24, LAB99, LAB15, LAB20 ####Pin Setter: BRENDA GREENMECCA ([id number])[facility] (SBHLAB)[address] Urea nitrogen [Mass/Vol] 19 mg/dL Normal 9-23 [facility] Comment on above: Performed By: #### L AB24, LAB99, LAB15, LAB20 ####Pin Setter: BRENDA CHASEDESEAN ([id number])[facility] (SBHLAB)[address] Basic metabolic 1998 panelon 08-01-2024 Anion gap [Moles/Vol] 9 mmol/L 3 - 13 mmol/L [facility] [employer] Calcium [Mass/Vol] 9 mg/dL 8.4 - 10. 2 mg/dL [facility] [employer] Chloride [Moles/Vol] 102 mmol/L 98 - 10 7 mmol/L [facility] [employer] CO2 [Moles/Vol] 21 mmol/L Low 22 - 29 mmol/L [facility] Creatinine [Mass/Vol] 3.18 mg/dL High 0.57 - 1.11 mg/dL [facility] GFR/1.73 sq M.predicted (S/P/Bld) [Vol rate/Area] 16.4 mL/min Low - PINF [facility] Comment on above: Calculation based on the Chronic Kidney Disease Epidemiology Collaboration (CKD-EPI) equation refit without adjustment for race Glucose [Mass/Vol] 94 mg/dL 74 - 100 mg/dL [facility] Potassium [Moles/Vol] 4.1 mmol/L 3.5 - 5.1 mmol/L [facility] Comment on above: Plasma potassium batsheva ues may be up to 0.5 mmol/L lower than serum values. Sodium [Moles/Vol] 132 mmol/L Low 136 - 145 mmol/L [facility] Urea nitrogen [Mass/Vol] 19 mg/dL 9 - 23 mg/dL [facility] CBC (HEMOGRAM)on 08-01-2024 Erythrocyte distribution width (RBC) [Ratio] 13.6 % Normal 11.5-15.0 [facility] Comment on above: Performed By: #### L AB294 ####Pin Setter: BRENDA JEAN ([id number])[facility]ITALJ[facility]anny [facility]ITAL[facility] (SBAB)[address] Hematocrit (Bld) [Volume fraction] 29.3 % Low 35.0-47.0 [facility] Comment on above: Performed By: #### L AB294 ####Pin Setter: BRENDA JEAN ([id number])[facility] ([facility])[address] [place] [address] Hemoglobin (Bld) [Mass/Vol] 9.5 g/dL Low 11.7-16.0 [facility] Comment on above: Performed By: #### L AB294 ####Pin Setter: BRENDA JEAN ([id number])[facility] ([facility])[address] MCH (RBC) [Entitic mass] 31.4 pg Normal 26.0-34.0 [facility] Comment on above: Performed By: #### L AB294 ####Pin Setter: BRENDA JEAN ([id number])[facility] ([facility])[address] MCHC 32.4 % Normal 30.5-36.0 [facility] Comment on above: Performed By: #### L AB294 ####Pin Setter: BRENDA JEAN ([id number])[facility] ([facility])[address] [place] [address] MCV (RBC) [Entitic vol] 96.7 fL Normal 77.0-99.0 [facility] Comment on above: Performed By: #### L AB294 ####Pin Setter: BRENDA SILVACER ([id number])[facility]ITALJ[facility]anny [place] (SBHLAB)[address] Platelet mean volume (Bld) [Entitic vol] 9.1 fL Normal 9.0-12.7 [facility] Comment on above: Performed By: #### L AB294 ####Pin Setter: BRENDA GREENMECCA ([id number])[facility]ITALJ[facility]anny [facility] (SBHLAB)[address] Platelets (Bld) [#/Vol] 185 10*3/uL Normal 140-440 [facility] Comment on above: Performed By: #### L AB294 ####Pin Setter: BRENDA SILVACER ([id number])[facility]ITALJ[facility]anny [facility] (SBHLAB)[address] RBC (Bld) [#/Vol] 3.03 10*6/uL Low 3.80-5.20 [facility] Comment on above: Performed By: #### L AB294 ####Pin Setter: BRENDA CHASEDESEAN ([id number])[facility]ITALJ[facility]anny [place] (SBHLAB)[address] WBC (Bld) [#/Vol] 11.0 10*3/uL High 3.6-10.7 [facility] Comment on above: Performed By: #### L AB294 ####Pin Setter: BRENDA JEAN ([id number])[facility] (SBHLAB)[address] CBC panel Auto (Bld)on 08-01 Erythrocyte distribution width (RBC) [Ratio] 13.6 % 11.5 - 15.0 % [facility] Hematocrit (Bld) [Volume fraction] 29.3 % Low 35.0 - 47.0 % [facility] Hemoglobin (Bld) [Mass/Vol] 9.5 g/dL Low 11.7 - 16.0 g/dL [facility] Interpretation and review of laboratory results Abnormal [facility] MCH (RBC) [Entitic mass] 31.4 pg 26.0 - 34.0 pg [facility] MCHC (RBC) [Mass/Vol] 32.4 % 30.5 - 36.0 % [facility] MCV (RBC) [Entitic vol] 96.7 fL 77.0 - 99.0 fL [facility] Platelet mean volume (Bld) [Entitic vol] 9.1 fL 9.0 - 12.7 fL [facility] Platelets (Bld) [#/Vol] 185 10*3/uL 140 - 440 10*3/uL [facility] RBC (Bld) [#/Vol] 3.03 10*6/uL Low 3.80 - 5.20 10*6/uL [facility] WBC (Bld) [#/Vol] 11 10*3/uL High 3.6 - 10.7 10*3/uL [facility] ED Nursing Noteon 08-01-2024 ED Nursing Note Normal [facility] ED Nursing Note Updated ETA 30 mins Normal [facility] ED Nursing Note Called rapid for US IV and blood draw. This RN attempted twice Normal [facility] ED Nursing Note Pt presents with EMS . Pt with fall yesterday and ankle pain. Pt is yellow in appearance. Pt with bruising in bilateral legs and +2 edema. Pt walks with walker.Pt is from assisted living [facility]. EMS unable to provider more information Normal [facility] ED Provider Noteon ED Provider Note Normal [facility] HEPATIC FUNCTION PANELon Albumin [Mass/Vol] 3.2 g/dL Low 3.5-5.0 [facility] Comment on above: Performed By: #### L AB24, LAB99, LAB15, LAB20 ####Pin Setter: BRENDA JEAN ([id number])[facility] (SBHLAB)[address] ALP [Catalytic activity/Vol] 76 U/L Normal 40-150 [facility] Comment on above: Performed By: #### L AB24, LAB99, LAB15, LAB20 ####Pin Setter: BRENDA JEAN ([id number])[facility] (SBHLAB)[address] ALT [Catalytic activity/Vol] U/L Normal <30 [facility] Comment on above: Performed By: #### L AB24, LAB99, LAB15, LAB20 ####Pin Setter: BRENDA CHASEDESEAN ([id number])[facility] (SBHLAB)[address] AST [Catalytic activity/Vol] 15 U/L Normal <34 [facility] Comment on above: Performed By: #### L AB24, LAB99, LAB15, LAB20 ####Pin Setter: BRENDA GREENMECCA ([id number])[facility] (SBHLAB)[address] Bilirubin [Mass/Vol] 0.4 mg/dL Normal <1.2 [facility] Comment on above: Performed By: #### L AB24, LAB99, LAB15, LAB20 ####Pin Setter: BRENDA CHASEDESEAN ([id number])[facility] (HLAB)[address] [place] [address] Bilirubin.indirect [Mass/Vol] 0.2 mg/dL Normal <0.5 [facility] Comment on above: Performed By: #### L AB24, LAB99, LAB15, LAB20 ####Pin Setter: BRENDA GREENMECCA ([id number])[facility] ([facility])[address] [place] [address] Protein [Mass/Vol] 6.9 g/dL Normal 6.4-8.3 [facility] Comment on above: Result Comment: Seru m protein values are higher than plasma values. Samples from recumbent persons are lower by up to 0.5 g/dL as compared to ambulatory persons. After 60 years values are lower by up to 0.2 g/dL. Performed By: #### L AB24, LAB99, LAB15, LAB20 ####Pin Setter: BRENDA CHASEDESEAN ([id number])[facility] (SBHLAB)[address] [place] [address] Hepatic function 2000 panelo n 08-01-2024 Albumin [Mass/Vol] 3.2 g/dL Low 3.5 - 5.0 g/dL [facility] ALP [Catalytic activity/Vol] 76 U/L 40 - 150 U/L [facility] ALT [Catalytic activity/Vol] U/[facility] AST [Catalytic activity/Vol] 15 U/L [facility] U/L [facility] Bilirubin [Mass/Vol] 0.4 mg/dL [facility] - 1.2 mg/dL [facility] Bilirubin.conjugated [Mass/Vol] 0.2 mg/dL NINF - 0.5 mg/dL [facility] Protein [Mass/Vol] 6.9 g/dL 6.4 - 8.3 g/dL [facility] Comment on above: Serum protein values are higher than plasma values. Samples from recumbent persons are lower by up to 0.5 g/dL as compared to ambulatory persons. After 60 years values are lower by up to 0.2 g/dL. LAMOTRIGINE LEVEL ([facility] )on 08-01-2024 [facility] LAMOTRIGINE 15.5 mcg/mL High 2.5-15.0 [facility] Comment on above: Result Comment: This test was developed and its analytical performancecharacteristics have been determined by [employer]. It hasnot been cleared or approved by the U.S. Food and DrugAdministration. This assay has been validated pursuantto the CLIA regulations and is used for clinicalpurposes.Test Performed by [facility]communicationK[facility],[employer] [facility],[address] [place] [address] [id number] Murrieta M.D., Ph.D., Director of [phone], CLIA [id number] Performed By: #### L AB475 ####[facility] (AMDBEAKER)[address] [place], [place] LIPASEon 08-01-2024 Lipase [Catalytic activity/Vol] 39 U/L Normal <55 [facility] Comment on above: Performed By: #### L AB24, LAB99, LAB15, LAB20 ####Pin Setter: BRENDA JEAN ([id number])[facility]ITALJ[facility] (SBHLAB)[address] Laboratory - Chemistry and C hemistry - challengeon 08-01-2024 Lipase [Catalytic activity/Vol] 39 U/L NINF - 55 U/L [facility] Laboratory - Drug toxicology on 08-01-2024 Valproate [Mass/Vol] 63 ug/mL 50 - 12 5 ug/mL [facility] No Panel Informationon 08-01 Interpretation and review of laboratory results Abnormal [facility] Interpretation and review of laboratory results Normal [facility] Toxicity is seen at concentrations >175 ug/mL [facility] VALPROIC ACID TOTALon 2023 VALPROIC ACID 63 ug/mL Normal 50-125 [facility] Comment on above: Result Comment: HARRIET [place] COMMENTS:Toxicity is seen at concentrations >175 ug/mL Performed By: #### L AB24, LAB99, LAB15, LAB20 ####Pin Setter: BRENDA JEAN ([id number])[facility]ITALJ[facility]anny [facility] (SBHLAB)[address] [place] [address] XR Ankle - right 3 Viewson 1 10-02-2023 No fracture or dislocation of the right ankle. Generalized soft tissue swelling. Small plantar heel spur. Report Dictated on Electronically Signed By: Sarah Hamm MD Electronically Signed Date/Time: 08/01/2024 3:09 PM EST [employer] Patient Name: JESSY WEN : 1965 Exam Date/Time: 08/01/2024 15:00 Procedure: XR ANKLE 3+ VIEWS RIGHT Ordering Provider: CEDEÑO DANIEL Reason For Exam: pain, fall RIGHT ANKLE CLINICAL INDICATION: Pain after trauma AP, lateral, and oblique plain film views of the right ankle were obtained. COMPARISON: None. FINDINGS: No fracture or dislocation of the right ankle is identified. The ankle mortise is intact. Generalized soft tissue swelling of the right ankle is noted. There is no radiopaque foreign body. There is a small plantar heel spur. [facility] [employer]ing Sarah Hamm MD - 08/01/2024 Patient Name: JESSY MCKEON : 1965 Exam Date/Time: 08/01/2024 15:00 Procedure: XR ANKLE 3+ VIEWS RIGHT Ordering Provider: CEDEÑO DANIEL Reason For Exam: pain, fall RIGHT ANKLE CLINICAL INDICATION: Pain after trauma AP, lateral, and oblique plain film views of the right ankle were obtained. COMPARISON: None. FINDINGS: No fracture or dislocation of the right ankle is identified. The ankle mortise is intact. Generalized soft tissue swelling of the right ankle is noted. There is no radiopaque foreign body. There is a small plantar heel spur. IMPRESSION: No fracture or dislocation of the right ankle. Generalized soft tissue swelling. Small plantar heel spur. Report Dictated on Electronically Signed By: Sarah Hamm MD Electronically Signed Date/Time: 08/01/2024 3:09 PM [facility] Radiology Study observation (narrative) [facility] XR Foot - left 3 Viewson No fracture or dislocation of the left foot is seen. Severe hallux valgus. Nonspecific soft tissue swelling. Report Dictated on Electronically Signed By: Sarah Hamm MD Electronically Signed Date/Time: 08/01/2024 3:07 PM [facility] [employer] Patient Name: JESSY WEN : 1965 Exam Date/Time: 08/01/2024 15:00 Procedure: XR FOOT 3+ VIEWS LEFT Ordering Provider: CEDEÑO DANIEL Reason For Exam: pain, fall LEFT FOOT CLINICAL INDICATION: Pain after fall AP, lateral, and oblique plain film views of the left foot were obtained. COMPARISON: None. No fracture or dislocation of the left foot is identified. There is severe hallux valgus. Diffuse soft tissue swelling is noted over the dorsum of the left foot. There is no radiopaque foreign body or soft tissue gas. [facility] Sarah Hamm MD - 08/01/2024 Patient Name: JESSY MCKEON : 1965 Exam Date/Time: 08/01/2024 15:00 Procedure: XR FOOT 3+ VIEWS LEFT Ordering Provider: CEDEÑO DANIEL Reason For Exam: pain, fall LEFT FOOT CLINICAL INDICATION: Pain after fall AP, lateral, and oblique plain film views of the left foot were obtained. COMPARISON: None. No fracture or dislocation of the left foot is identified. There is severe hallux valgus. Diffuse soft tissue swelling is noted over the dorsum of the left foot. There is no radiopaque foreign body or soft tissue gas. IMPRESSION: No fracture or dislocation of the left foot is seen. Severe hallux valgus. Nonspecific soft tissue swelling. Report Dictated on Electronically Signed By: Sarah Hamm MD Electronically Signed Date/Time: 08/01/2024 3:07 PM EST [facility] Radiology Study observation (narrative) [facility] [employer] XR Foot - right 3 Viewson Radiology Study observation (narrative) [facility] Laterally dislocated second MTP joint and laterally subluxed or dislocated first MTP joint. Osteopenia. Extensive soft tissue edema/swelling. Report Dictated on Electronically Signed By: Joyce Darby MD Electronically Signed Date/Time: 08/01/2024 2:51 PM [facility] Patient Name: JESSY WEN : 1965 Exam Date/Time: 08/01/2024 15:00 Procedure: XR FOOT 3+ VIEWS RIGHT Ordering Provider: CEDEÑO DANIEL Reason For Exam: pain, fall EXAMINATION: Right foot three views INDICATION: pain, fall FINDINGS: No acute fracture. Laterally dislocated second MTP joint present. The first MTP joint also appears dilated dislocated or subluxed. Mild degenerative changes of the midfoot. Mild degenerative changes of the IP joints. Degenerative changes at the TMT joints and second/third intermetatarsal articulation. Small plantar calcaneal enthesophyte. Extensive soft tissue swelling of the distal leg, ankle and foot present. [facility]Y SYSTEM Joyce Darby MD - 08/01/2024 Patient Name: JESSY MCKEON : 1965 Exam Date/Time: 08/01/2024 15:00 Procedure: XR FOOT 3+ VIEWS RIGHT Ordering Provider: CEDEÑO DANIEL Reason For Exam: pain, fall EXAMINATION: Right foot three views INDICATION: pain, fall FINDINGS: No acute fracture. Laterally dislocated second MTP joint present. The first MTP joint also appears dilated dislocated or subluxed. Mild degenerative changes of the midfoot. Mild degenerative changes of the IP joints. Degenerative changes at the TMT joints and second/third intermetatarsal articulation. Small plantar calcaneal enthesophyte. Extensive soft tissue swelling of the distal leg, ankle and foot present. IMPRESSION: Laterally dislocated second MTP joint and laterally subluxed or dislocated first MTP joint. Osteopenia. Extensive soft tissue edema/swelling. Report Dictated on Electronically Signed By: Joyce Darby MD Electronically Signed Date/Time: 08/01/2024 2:51 PM EST [employer] XR Foot - right 3 ViewsOrder ed By: Joyce Darby on 08-01-2024 [employer] Work Phone: XR Tibia and Fibula - right 2 Viewson 08-01-2024 No fracture or dislocation of the right tibia or fibula is identified. Generalized soft tissue swelling. Report Dictated on Electronically Signed By: Sarah Hamm MD Electronically Signed Date/Time: 08/01/2024 3:08 PM EST [facility] [facility] Patient Name: JESSY WEN : 1965 Exam Date/Time: 08/01/2024 15:00 Procedure: XR TIBIA FIBULA 2 VIEWS RIGHT Ordering Provider: CEDEÑO DANIEL Reason For Exam: pain, fall RIGHT TIBIA AND FIBULA CLINICAL INDICATION: Pain after fall AP and lateral plain film views of the right tibia and fibula were obtained. COMPARISON: None FINDINGS: No fracture or dislocation of the right tibia or fibula is identified. Generalized soft tissue swelling of the right lower extremity is noted. There is no radiopaque foreign body or soft tissue gas. [facility] Sarah Hamm MD - 08/01/2024 Patient Name: JESSY MCKEON : 1965 Exam Date/Time: 08/01/2024 15:00 Procedure: XR TIBIA FIBULA 2 VIEWS RIGHT Ordering Provider: CEDEÑO DANIEL Reason For Exam: pain, fall RIGHT TIBIA AND FIBULA CLINICAL INDICATION: Pain after fall AP and lateral plain film views of the right tibia and fibula were obtained. COMPARISON: None FINDINGS: No fracture or dislocation of the right tibia or fibula is identified. Generalized soft tissue swelling of the right lower extremity is noted. There is no radiopaque foreign body or soft tissue gas. IMPRESSION: No fracture or dislocation of the right tibia or fibula is identified. Generalized soft tissue swelling. Report Dictated on Electronically Signed By: Sarah Hamm MD Electronically Signed Date/Time: 08/01/2024 3:08 PM EST [facility] Radiology Study observation (narrative) [facility] XR Tibia and Fibula - right 2 ViewsOrdered By: Sarah Hamm on 08-01-2024 [facility] 36on 07-05-2024 36 VM is full Normal [facility] 30on 07-04-2024 30 Normal [facility] [id number] 07-04-2024 [id number] Normal [facility] 36on 07-04-2024 36 VM is full Normal [facility] 36 Schedule hospital fo llow-up patient should also follow-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 Normal [facility] BASIC METABOLIC PANELon 06-16 Anion gap [Moles/Vol] 5 mmol/L Normal 3-13 [facility] Comment on above: Performed By: #### L AB15 ####Pin Setter: BRENDA JEAN ([id number])[facility] (SBHLAB)[address] Calcium [Mass/Vol] 8.8 mg/dL Normal 8.4-10.4 [facility] Comment on above: Performed By: #### L AB15 ####Pin Setter: BRENDA JEAN ([id number])[facility] (SBHLAB)[address] Chloride [Moles/Vol] 99 mmol/L Normal 98-107 [facility] Comment on above: Performed By: #### L AB15 ####Pin Setter: BRENDA JEAN ([id number])[facility] (SBHLAB)[address] CO2 [Moles/Vol] 25 mmol/L Normal 22-30 [facility] Comment on above: Performed By: #### L AB15 ####Pin Setter: BRENDA JEAN ([id number])[facility] (SBHLAB)[address] Creatinine [Mass/Vol] 2.68 mg/dL High 0.52-1.04 [facility] Comment on above: Performed By: #### L AB15 ####Pin Setter: BRENDA JEAN ([id number])[facility] (SBHLAB)[address] GLOMERULAR FILTRATION RATE ML/MIN/1.73 SQ M.PREDICTED 20.2 mL/min/1.73m*2 Low >60.0 [facility] Comment on above: Result Comment: Calc ulation based on the Chronic Kidney Disease Epidemiology Collaboration (CKD-EPI) equation refit without adjustment for race Performed By: #### L AB15 ####Pin Setter: BRENDA JEAN ([id number])[facility] (SBHLAB)[address] [place] [address] [place] Glucose [Mass/Vol] 76 mg/dL Normal 70-100 [facility] Comment on above: Performed By: #### L AB15 ####Pin Setter: BRENDA JEAN ([id number])[facility] [place] (SBHLAB)[address] Potassium [Moles/Vol] 4.4 mmol/L Normal 3.5-5.1 [facility] Comment on above: Performed By: #### L AB15 ####Pin Setter: BRENDA MIRANDA ([id number])[facility] [place] (SBHLAB)[address] Sodium [Moles/Vol] 129 mmol/L Low 135-145 [facility] Comment on above: Performed By: #### L AB15 ####Pin Setter: BRENDA GREENMECCA ([id number])[facility] [place] (SBHLAB)[address] Urea nitrogen [Mass/Vol] 33 mg/dL High 7-17 [facility] Comment on above: Performed By: #### L AB15 ####Pin Setter: BRENDA MIRANDA ([id number])[facility] [place] (SBHLAB)[address] [place] [address] Basic metabolic 1998 panelon 07-04-2024 Anion gap [Moles/Vol] 5 mmol/L 3 - 13 mmol/L [facility] Calcium [Mass/Vol] 8.8 mg/dL 8.4 - 10. 4 mg/dL [facility] Chloride [Moles/Vol] 99 mmol/L 98 - 10 7 mmol/L [facility] CO2 [Moles/Vol] 25 mmol/L 22 - 30 mmol/L [facility] Creatinine [Mass/Vol] 2.68 mg/dL High 0.52 - 1.04 mg/dL [facility] GFR/1.73 sq M.predicted (S/P/Bld) [Vol rate/Area] 20.2 mL/min Low - PINF [facility] Comment on above: Calculation based on the Chronic Kidney Disease Epidemiology Collaboration (CKD-EPI) equation refit without adjustment for race Glucose [Mass/Vol] 76 mg/dL 70 - 100 mg/dL [facility] Interpretation and review of laboratory results Abnormal [facility] Potassium [Moles/Vol] 4.4 mmol/L 3.5 - 5.1 mmol/L [facility] Sodium [Moles/Vol] 129 mmol/L Low 135 - 145 mmol/L [facility] Urea nitrogen [Mass/Vol] 33 mg/dL High 7 - 17 mg/dL [facility] CBC W Auto Differential pane l (Bld)on 07-04-2024 Basophils (Bld) [#/Vol] 0 10*3/uL 0.0 - 0.2 10*3/uL [facility] Basophils/100 WBC (Bld) 0.5 % 0.0 - 2.0 % [facility] Eosinophils (Bld) [#/Vol] 0.3 10*3/uL 0.0 - 0.5 10*3/uL [facility] Eosinophils/100 WBC (Bld) 4.8 % 0.0 - 6.0 % [facility] Erythrocyte distribution width (RBC) [Ratio] 13.5 % 11.5 - 15.0 % [facility] Hematocrit (Bld) [Volume fraction] 26.4 % Low 35.0 - 47.0 % [facility] Hemoglobin (Bld) [Mass/Vol] 8.3 g/dL Low 11.7 - 16.0 g/dL [facility] Immature granulocytes (Bld) [#/Vol] 0 10*3/uL NINF - 0.1 10*3/uL [facility] Immature granulocytes/100 WBC (Bld) 0.7 % 0.0 - 2.0 % [facility] Interpretation and review of laboratory results Abnormal [facility] Lymphocytes (Bld) [#/Vol] 2.5 10*3/uL 1.0 - 4.3 10*3/uL [facility] Lymphocytes/100 WBC (Bld) 41.1 % 15.0 - 45.0 % [facility] MCH (RBC) [Entitic mass] 30.2 pg 26.0 - 34.0 pg [facility] MCHC (RBC) [Mass/Vol] 31.4 % 30.5 - 36.0 % [facility] MCV (RBC) [Entitic vol] 96 fL 77.0 - 99.0 fL [facility] Monocytes (Bld) [#/Vol] 0.8 10*3/uL 0.0 - 0.9 10*3/uL [facility] Monocytes/100 WBC (Bld) 12.5 % 5.0 - 13.0 % [facility] Neutrophils (Bld) [#/Vol] 2.4 10*3/uL 1.8 - 7.5 10*3/uL [facility] Neutrophils/100 WBC (Bld) 40.4 % 38.0 - 82.0 % [facility] Nucleated RBC/100 WBC (Bld) [Ratio] 0 % [facility] Platelet mean volume (Bld) [Entitic vol] 9.2 fL 9.0 - 12.7 fL [facility] Platelets (Bld) [#/Vol] 216 10*3/uL 140 - 440 10*3/uL [facility] RBC (Bld) [#/Vol] 2.75 10*6/uL Low 3.80 - 5.20 10*6/uL [facility] WBC (Bld) [#/Vol] 6 10*3/uL 3.6 - 10.7 10*3/uL [facility] CBC WITH AUTO DIFFERENTIALon 07-04-2024 Basophils (Bld) [#/Vol] 0.0 10*3/uL Normal 0.0-0.2 [facility] Comment on above: Performed By: #### L [id number] ####Pin Setter: BRENDA JEAN ([id number])[facility] ([facility])[address] [place] [address] Basophils/100 WBC (Bld) 0.5 % Normal 0.0-2.0 [facility] Comment on above: Performed By: #### L [id number] ####Pin Setter: BRENDA JEAN ([id number])[facility] ([facility])[address] Eosinophils (Bld) [#/Vol] 0.3 10*3/uL Normal 0.0-0.5 [facility] Comment on above: Performed By: #### L [id number] ####Pin Setter: BRENDA JEAN ([id number])[facility] ([facility])[address] Eosinophils/100 WBC (Bld) 4.8 % Normal 0.0-6.0 [facility] Comment on above: Performed By: #### L [id number] ####Pin Setter: BRENDA MIRANDA ([id number])[facility] ([facility])[address] Erythrocyte distribution width (RBC) [Ratio] 13.5 % Normal 11.5-15.0 [facility] Comment on above: Performed By: #### L [id number] ####Pin Setter: BRENDA MIRANDA ([id number])[facility] ([facility])[address] Hematocrit (Bld) [Volume fraction] 26.4 % Low 35.0-47.0 [facility] Comment on above: Performed By: #### L [id number] ####Pin Setter: BRENDAVANESSA JEAN ([id number])[facility] ([facility])[address] [place] [address] Hemoglobin (Bld) [Mass/Vol] 8.3 g/dL Low 11.7-16.0 [facility] Comment on above: Performed By: #### L [id number] ####Pin Setter: BRENDA MIRANDA ([id number])[facility] ([facility])[address] IMMATURE GRANS % 0.7 % Normal 0.0-2.0 [facility] Comment on above: Performed By: #### L [id number] ####Pin Setter: BRENDA CHASEDESEAN ([id number])[facility] ([facility])[address] IMMATURE GRANS ABSOLUTE 0.0 10*3/uL Normal <0.1 [facility] Comment on above: Performed By: #### L [id number] ####Pin Setter: BRENDA CHASEDESEAN ([id number])[facility] ([facility])[address] Lymphocytes (Bld) [#/Vol] 2.5 10*3/uL Normal 1.0-4.3 [facility] Comment on above: Performed By: #### L [id number] ####Pin Setter: BRENDA CHASEDESEAN ([id number])[facility]ITAL[facility] AARONN (SB[facility])[address] Lymphocytes/100 WBC (Bld) 41.1 % Normal 15.0-45.0 [facility] Comment on above: Performed By: #### L [id number] ####Pin Setter: BRENDA JEAN ([id number])[facility] ([facility])[address] MCH (RBC) [Entitic mass] 30.2 pg Normal 26.0-34.0 [facility] Comment on above: Performed By: #### L [id number] ####Pin Setter: BRENDA CHASEDESEAN ([id number])[facility]ITAL[facility] ([facility])[address] MCHC 31.4 % Normal 30.5-36.0 [facility] Comment on above: Performed By: #### L [id number] ####Pin Setter: BRENDA CHASEDESEAN ([id number])[facility]ITAL[facility] ([facility])[address] MCV (RBC) [Entitic vol] 96.0 fL Normal 77.0-99.0 [facility] Comment on above: Performed By: #### L [id number] ####Pin Setter: BRENDA JEAN ([id number])[facility]ITAL[facility] ([facility])[address] Monocytes (Bld) [#/Vol] 0.8 10*3/uL Normal 0.0-0.9 [facility] Comment on above: Performed By: #### L [id number] ####Pin Setter: BRENDA JEAN ([id number])[facility]ITAL[facility] ([facility])[address] Monocytes/100 WBC (Bld) 12.5 % Normal 5.0-13.0 [facility] Comment on above: Performed By: #### L [id number] ####Pin Setter: BRENDA JEAN ([id number])[facility] [place] ([facility])[address] NEUTROPHILS ABSOLUTE 2.4 10*3/uL Normal 1.8-7.5 [facility] Comment on above: Performed By: #### L [id number] ####Pin Setter: BRENDA JEAN ([id number])[facility] [place] ([facility])[address] Neutrophils/100 WBC (Bld) 40.4 % Normal 38.0-82.0 [facility] Comment on above: Performed By: #### L [id number] ####Pin Setter: BRENDA JEAN ([id number])[facility] [place] ([facility])[address] NRBC 0.0 /100 WBCs Normal 0.0-2.0 [facility] Comment on above: Performed By: #### L [id number] ####Pin Setter: BRENDA JEAN ([id number])[facility] [place] ([facility])[address] Platelet mean volume (Bld) [Entitic vol] 9.2 fL Normal 9.0-12.7 [facility] Comment on above: Performed By: #### L [id number] ####Pin Setter: BRENDA JEAN ([id number])[facility] [place] ([facility])[address] [place] [address] [place] Platelets (Bld) [#/Vol] 216 10*3/uL Normal 140-440 [facility] Comment on above: Performed By: #### L [id number] ####Pin Setter: BRENDA JEAN ([id number])[facility] [place] ([facility])[address] RBC (Bld) [#/Vol] 2.75 10*6/uL Low 3.80-5.20 [facility] Comment on above: Performed By: #### L [id number] ####Pin Setter: BRENDA JEAN ([id number])[facility] ([facility])[address] WBC (Bld) [#/Vol] 6.0 10*3/uL Normal 3.6-10.7 [facility] Comment on above: Performed By: #### L [id number] ####Pin Setter: BRENDA JEAN ([id number])[facility] ([facility])[address] Laboratory - Chemistry and C hemistry - challengeOrdered By: Helena Hogue on 07-04-2024 Osmolality [Osmolality] 282 mosm/kg [facility] No Panel Informationon 07-04 Interpretation and review of laboratory results Abnormal [facility] OSMOLALITY, URINE 118 Low [facility] No Panel InformationOrdered By: Helena Hogue on 07-04-2024 Interpretation and review of laboratory results Normal [facility] Nursing Noteon 07-04-2024 Nursing Note Discharge instructio ns given to patient with understanding. I will also give them to her family, patients mother that will be picking her up at [address] Gutierrez did sign the AVS as requested by the facility. Normal [facility] Nursing Note I called [facility] as sisted living/[facility] and gave report on the patient. Patient will be discharged at 3 pm. Patients family will be transporting her. Normal [facility] OSMOLALITY, SERUMon 07-04-20 24 OSMOLALITY, SERUM 282 mOsm/kg Normal 280-300 [facility] Comment on above: Performed By: #### L [id number] ####Pin Setter: BRENDA JEAN ([id number])[facility] ([facility])[address] OSMOLALITY, URINEon 07-04-20 24 OSMOLALITY, URINE 118 mOsm/kg Low 300-1000 [facility] Comment on above: Performed By: #### L [id number] ####Pin Setter: BRENDA JEAN ([id number])[facility] ([facility])[address] Progress Noteon 07-04-2024 Progress Note Normal [facility] Progress Note Normal [facility] Progress Note Normal [facility] Progress Note Normal [facility] Progress Note Normal [facility] 30on 07-03-2024 30 Normal [facility] [id number] 07-03-2024 [id number] Normal [facility] CBC W Auto Differential pane l (Bld)on 07-03-2024 Basophils (Bld) [#/Vol] 0 10*3/uL 0.0 - 0.2 10*3/uL [facility] Basophils/100 WBC (Bld) 0.5 % 0.0 - 2.0 % [facility] Eosinophils (Bld) [#/Vol] 0.2 10*3/uL 0.0 - 0.5 10*3/uL [facility] Eosinophils/100 WBC (Bld) 3.7 % 0.0 - 6.0 % [facility] Erythrocyte distribution width (RBC) [Ratio] 13.4 % 11.5 - 15.0 % [facility] Hematocrit (Bld) [Volume fraction] 27.4 % Low 35.0 - 47.0 % [facility] Hemoglobin (Bld) [Mass/Vol] 8.7 g/dL Low 11.7 - 16.0 g/dL [facility] Immature granulocytes (Bld) [#/Vol] 0 10*3/uL NINF - 0.1 10*3/uL [facility] Immature granulocytes/100 WBC (Bld) 0.3 % 0.0 - 2.0 % [facility] Interpretation and review of laboratory results Abnormal [facility] Lymphocytes (Bld) [#/Vol] 2.7 10*3/uL 1.0 - 4.3 10*3/uL [facility] Lymphocytes/100 WBC (Bld) 44.7 % 15.0 - 45.0 % [facility] MCH (RBC) [Entitic mass] 30.6 pg 26.0 - 34.0 pg [facility] MCHC (RBC) [Mass/Vol] 31.8 % 30.5 - 36.0 % [facility] MCV (RBC) [Entitic vol] 96.5 fL 77.0 - 99.0 fL [facility] Monocytes (Bld) [#/Vol] 0.7 10*3/uL 0.0 - 0.9 10*3/uL [facility] Monocytes/100 WBC (Bld) 12.1 % 5.0 - 13.0 % [facility] Neutrophils (Bld) [#/Vol] 2.3 10*3/uL 1.8 - 7.5 10*3/uL [facility] Neutrophils/100 WBC (Bld) 38.7 % 38.0 - 82.0 % [facility] Nucleated RBC/100 WBC (Bld) [Ratio] 0 % [facility] Platelet mean volume (Bld) [Entitic vol] 8.8 fL Low 9.0 - 12.7 fL [facility] Platelets (Bld) [#/Vol] 185 10*3/uL 140 - 440 10*3/uL [facility] RBC (Bld) [#/Vol] 2.84 10*6/uL Low 3.80 - 5.20 10*6/uL [facility] WBC (Bld) [#/Vol] 6 10*3/uL 3.6 - 10.7 10*3/uL [facility] CBC WITH AUTO DIFFERENTIALon 07-03-2024 Basophils (Bld) [#/Vol] 0.0 10*3/uL Normal 0.0-0.2 [facility] Comment on above: Performed By: #### L [id number] ####Pin Setter: BRENDA JEAN ([id number])[facility] ([facility])[address] [place] [address] Basophils/100 WBC (Bld) 0.5 % Normal 0.0-2.0 [facility] Comment on above: Performed By: #### L [id number] ####Pin Setter: BRENDA JEAN ([id number])[facility] ([facility])[address] Eosinophils (Bld) [#/Vol] 0.2 10*3/uL Normal 0.0-0.5 [facility] Comment on above: Performed By: #### L [id number] ####Pin Setter: BRENDA JEAN ([id number])[facility] ([facility])[address] Eosinophils/100 WBC (Bld) 3.7 % Normal 0.0-6.0 [facility] Comment on above: Performed By: #### L [id number] ####Pin Setter: BRENDA CHASEDESEAN ([id number])[facility] ([facility])[address] Erythrocyte distribution width (RBC) [Ratio] 13.4 % Normal 11.5-15.0 [facility] Comment on above: Performed By: #### L [id number] ####Pin Setter: BRENDA CHASEDESEAN ([id number])[facility] [place] ([facility])[address] Hematocrit (Bld) [Volume fraction] 27.4 % Low 35.0-47.0 [facility] Comment on above: Performed By: #### L [id number] ####Pin Setter: BRENDA JEAN ([id number])[facility] ([facility])[address] Hemoglobin (Bld) [Mass/Vol] 8.7 g/dL Low 11.7-16.0 [facility] Comment on above: Performed By: #### L [id number] ####Pin Setter: BRENDA CHASEDESEAN ([id number])[facility] ([facility])[address] [place] [address] IMMATURE GRANS % 0.3 % Normal 0.0-2.0 [facility] Comment on above: Performed By: #### L [id number] ####Pin Setter: BRENDA CHASEDESEAN ([id number])[facility] ([facility])[address] IMMATURE GRANS ABSOLUTE 0.0 10*3/uL Normal <0.1 [facility] Comment on above: Performed By: #### L [id number] ####Pin Setter: BRENDA JEAN ([id number])[facility] ([facility])[address] [place] [address] [place] Lymphocytes (Bld) [#/Vol] 2.7 10*3/uL Normal 1.0-4.3 [facility] Comment on above: Performed By: #### L [id number] ####Pin Setter: BRENDAVANESSA JEAN ([id number])[facility] [place] ([facility])[address] Lymphocytes/100 WBC (Bld) 44.7 % Normal 15.0-45.0 [facility] Comment on above: Performed By: #### L [id number] ####Pin Setter: BRENDAVANESSA JEAN ([id number])[facility] [place] ([facility])[address] MCH (RBC) [Entitic mass] 30.6 pg Normal 26.0-34.0 [facility] Comment on above: Performed By: #### L [id number] ####Pin Setter: BRENDA MIRANDA ([id number])[facility] ([facility])[address] MCHC 31.8 % Normal 30.5-36.0 [facility] Comment on above: Performed By: #### L [id number] ####Pin Setter: BRENDA MIRANDA ([id number])[facility] [place] ([facility])[address] MCV (RBC) [Entitic vol] 96.5 fL Normal 77.0-99.0 [facility] Comment on above: Performed By: #### L [id number] ####Pin Setter: BRENDA MIRANDA ([id number])[facility] [place] ([facility])[address] Monocytes (Bld) [#/Vol] 0.7 10*3/uL Normal 0.0-0.9 [facility] Comment on above: Performed By: #### L [id number] ####Pin Setter: BRENDA MIRANDA ([id number])[facility] [place] ([facility])[address] [place] [address] [place] Monocytes/100 WBC (Bld) 12.1 % Normal 5.0-13.0 [facility] Comment on above: Performed By: #### L [id number] ####Pin Setter: BRENDA JEAN ([id number])[facility] [place] ([facility])[address] NEUTROPHILS ABSOLUTE 2.3 10*3/uL Normal 1.8-7.5 [facility] Comment on above: Performed By: #### L [id number] ####Pin Setter: BRENDA JEAN ([id number])[facility] [place] ([facility])[address] Neutrophils/100 WBC (Bld) 38.7 % Normal 38.0-82.0 [facility] Comment on above: Performed By: #### L [id number] ####Pin Setter: BRENDA JEAN ([id number])[facility] [place] ([facility])[address] NRBC 0.0 /100 WBCs Normal 0.0-2.0 [facility] Comment on above: Performed By: #### L [id number] ####Pin Setter: BRENDA JEAN ([id number])[facility] [place] ([facility])[address] Platelet mean volume (Bld) [Entitic vol] 8.8 fL Low 9.0-12.7 [facility] Comment on above: Performed By: #### L [id number] ####Pin Setter: BRENDA JEAN ([id number])[facility] [place] ([facility])[address] [place] [address] [place] Platelets (Bld) [#/Vol] 185 10*3/uL Normal 140-440 [facility] Comment on above: Performed By: #### L [id number] ####Pin Setter: BRENDA JEAN ([id number])[facility] [place] ([facility])[address] [place] [address] [place] RBC (Bld) [#/Vol] 2.84 10*6/uL Low 3.80-5.20 [facility] Comment on above: Performed By: #### L [id number] ####Pin Setter: BRENDA JEAN ([id number])[facility]ITALJohanny AARONHolly (SBHLAB)[address] WBC (Bld) [#/Vol] 6.0 10*3/uL Normal 3.6-10.7 [facility] Comment on above: Performed By: #### L [id number] ####Pin Setter: BRENDA JEAN ([id number])[facility]ITAL[facility] AARONHolly (SB[facility]AB)[address] Progress Noteon 07-03-2024 Progress Note Normal [facility] Progress Note Normal [facility] Progress Note Normal [facility] Progress Note Normal [facility] RENAL FUNCTION PANELon 07-03 Albumin [Mass/Vol] 2.8 g/dL Low 3.5-5.0 [facility] Comment on above: Performed By: #### L AB19 ####Pin Setter: BRENDA JEAN ([id number])[facility]ITALJ[facility] [place] (SB[facility])[address] Anion gap [Moles/Vol] 2 mmol/L Low 3-13 [facility] Comment on above: Performed By: #### L AB19 ####Pin Setter: BRENDA JEAN ([id number])[facility]ITALJ[facility] BARBJEANN (SBHLAB)[address] Calcium [Mass/Vol] 8.4 mg/dL Normal 8.4-10.4 [facility] Comment on above: Performed By: #### L AB19 ####Pin Setter: BRENDA JEAN ([id number])[facility]ITAL[facility] ([facility])[address] Chloride [Moles/Vol] 103 mmol/L Normal 98-107 [facility] Comment on above: Performed By: #### L AB19 ####Pin Setter: BRENDA JEAN ([id number])[place] ([facility])[address] CO2 [Moles/Vol] 26 mmol/L Normal 22-30 [facility] Comment on above: Performed By: #### L AB19 ####Pin Setter: BRENDA JEAN ([id number])[facility]ITALJ[facility]OUNM [facility]PITALN (SBHL[facility])[address] Creatinine [Mass/Vol] 2.81 mg/dL High 0.52-1.04 [facility] Comment on above: Performed By: #### L AB19 ####Pin Setter: BRENDA JEAN ([id number])[facility]ITALJ[facility]anny [facility] (SBHL[facility])[address] GLOMERULAR FILTRATION RATE ML/MIN/1.73 SQ M.PREDICTED 19.1 mL/min/1.73m*2 Low >60.0 [facility] Comment on above: Result Comment: Calc ulation based on the Chronic Kidney Disease Epidemiology Collaboration (CKD-EPI) equation refit without adjustment for race Performed By: #### L AB19 ####Pin Setter: BRENDA JEAN ([id number])[facility]ITALJ[facility]anny [facility] ([facility])[address] Glucose [Mass/Vol] 76 mg/dL Normal 70-100 [facility] Comment on above: Performed By: #### L AB19 ####Pin Setter: BRENDA JEAN ([id number])[facility]ITALJ[facility]anny [facility]ITALN (SBHLAB)[address] [place] [address] [place] Phosphate [Mass/Vol] 4.5 mg/dL Normal 2.5-4.5 [facility] Comment on above: Performed By: #### L AB19 ####Pin Setter: BRENDA JEAN ([id number])[facility]ITALJ[facility]anny [facility] ([facility])[address] [place] [address] [place] Potassium [Moles/Vol] 4.6 mmol/L Normal 3.5-5.1 [facility] Comment on above: Performed By: #### L AB19 ####Pin Setter: BRENDA MIRANDA ([id number])[facility] ([facility])[address] Sodium [Moles/Vol] 132 mmol/L Low 135-145 [facility] Comment on above: Performed By: #### L AB19 ####Pin Setter: BRENDA MIRANDA ([id number])[facility] ([facility])[address] Urea nitrogen [Mass/Vol] 32 mg/dL High 7-17 [facility] Comment on above: Performed By: #### L AB19 ####Pin Setter: BRENDA JEAN ([id number])[facility] ([facility])[address] Renal function 2000 panelon 07-03-2024 Albumin [Mass/Vol] 2.8 g/dL Low 3.5 - 5.0 g/dL [facility] Anion gap [Moles/Vol] 2 mmol/L Low 3 - 13 mmol/L [facility] Calcium [Mass/Vol] 8.4 mg/dL 8.4 - 10. 4 mg/dL [facility] Chloride [Moles/Vol] 103 mmol/L 98 - 10 7 mmol/L [facility] CO2 [Moles/Vol] 26 mmol/L 22 - 30 mmol/L [facility] Creatinine [Mass/Vol] 2.81 mg/dL High 0.52 - 1.04 mg/dL [facility] GFR/1.73 sq M.predicted (S/P/Bld) [Vol rate/Area] 19.1 mL/min Low - PINF [facility] Comment on above: Calculation based on the Chronic Kidney Disease Epidemiology Collaboration (CKD-EPI) equation refit without adjustment for race Glucose [Mass/Vol] 76 mg/dL 70 - 100 mg/dL [facility] Interpretation and review of laboratory results Abnormal [facility] Phosphate [Mass/Vol] 4.5 mg/dL 2.5 - 4 .5 mg/dL [facility] Potassium [Moles/Vol] 4.6 mmol/L 3.5 - 5.1 mmol/L [facility] Sodium [Moles/Vol] 132 mmol/L Low 135 - 145 mmol/L [facility] Urea nitrogen [Mass/Vol] 32 mg/dL High 7 - 17 mg/dL [facility] [id number] 07-02-2024 [id number] Normal [facility] BASIC METABOLIC PANELon 06-15 Anion gap [Moles/Vol] 6 mmol/L Normal 3-13 [facility] Comment on above: Performed By: #### L AB15 ####Pin Setter: BRENDA JEAN ([id number])[facility] [place] ([facility])[address] Calcium [Mass/Vol] 8.4 mg/dL Normal 8.4-10.4 [facility] Comment on above: Performed By: #### L AB15 ####Pin Setter: BRENDA JEAN ([id number])[facility] (SB[facility])[address] Chloride [Moles/Vol] 103 mmol/L Normal 98-107 [facility] Comment on above: Performed By: #### L AB15 ####Pin Setter: BRENDA JEAN ([id number])[facility] ([facility])[address] CO2 [Moles/Vol] 23 mmol/L Normal 22-30 [facility] Comment on above: Performed By: #### L AB15 ####Pin Setter: BRENDA JEAN ([id number])[facility] ([facility])[address] Creatinine [Mass/Vol] 2.66 mg/dL High 0.52-1.04 [facility] Comment on above: Performed By: #### L AB15 ####Pin Setter: BRENDA JEAN ([id number])[facility] ([facility])[address] GLOMERULAR FILTRATION RATE ML/MIN/1.73 SQ M.PREDICTED 20.4 mL/min/1.73m*2 Low >60.0 [facility] Comment on above: Result Comment: Calc ulation based on the Chronic Kidney Disease Epidemiology Collaboration (CKD-EPI) equation refit without adjustment for race Performed By: #### L AB15 ####Pin Setter: BRENDA JEAN ([id number])[facility] (SB[facility])[address] Glucose [Mass/Vol] 79 mg/dL Normal 70-100 [facility] Comment on above: Performed By: #### L AB15 ####Pin Setter: BRENDA JEAN ([id number])[facility]ITAL[facility] (SBHLAB)[address] Potassium [Moles/Vol] 4.4 mmol/L Normal 3.5-5.1 [facility] Comment on above: Performed By: #### L AB15 ####Pin Setter: BRENDA JEAN ([id number])[facility] (SBAB)[address] Sodium [Moles/Vol] 131 mmol/L Low 135-145 [facility] Comment on above: Performed By: #### L AB15 ####Pin Setter: BRENDA JEAN ([id number])[facility] ([facility] [place] nitrogen [Mass/Vol] 27 mg/dL High 7-17 [facility] Comment on above: Performed By: #### L [id number] ####Pin Setter: BRENDA JEAN ([id number])[facility] [place] [address] Basic metabolic 1998 panelon 07-02-2024 Anion gap [Moles/Vol] 6 mmol/L 3 - 13 mmol/L [facility] Calcium [Mass/Vol] 8.4 mg/dL 8.4 - 10. 4 mg/dL [facility] Chloride [Moles/Vol] 103 mmol/L 98 - 10 7 mmol/L [facility] CO2 [Moles/Vol] 23 mmol/L 22 - 30 mmol/L [facility] Creatinine [Mass/Vol] 2.66 mg/dL High 0.52 - 1.04 mg/dL [facility] [employer] GFR/1.73 sq M.predicted (S/P/Bld) [Vol rate/Area] 20.4 mL/min Low - PINF [facility] [employer] Comment on above: Calculation based on the Chronic Kidney Disease Epidemiology Collaboration (CKD-EPI) equation refit without adjustment for race Glucose [Mass/Vol] 79 mg/dL 70 - 100 mg/dL [facility] [employer] Interpretation and review of laboratory results Abnormal [facility] [employer] Potassium [Moles/Vol] 4.4 mmol/L 3.5 - 5.1 mmol/L [facility] [employer] Sodium [Moles/Vol] 131 mmol/L Low 135 - 145 mmol/L [facility] [employer] Urea nitrogen [Mass/Vol] 27 mg/dL High 7 - 17 mg/dL [facility] [employer] CBC W Auto Differential pane l (Bld)on 07-02-2024 Basophils (Bld) [#/Vol] 0 10*3/uL 0.0 - 0.2 10*3/uL [facility] [employer] Basophils/100 WBC (Bld) 0.7 % 0.0 - 2.0 % [facility] [employer] Eosinophils (Bld) [#/Vol] 0.2 10*3/uL 0.0 - 0.5 10*3/uL [facility] [employer] Eosinophils/100 WBC (Bld) 3.1 % 0.0 - 6.0 % [facility] [employer] Erythrocyte distribution width (RBC) [Ratio] 13.1 % 11.5 - 15.0 % [facility] [employer] Hematocrit (Bld) [Volume fraction] 27.2 % Low 35.0 - 47.0 % [facility] [employer] Hemoglobin (Bld) [Mass/Vol] 8.7 g/dL Low 11.7 - 16.0 g/dL [facility] [employer] Immature granulocytes (Bld) [#/Vol] 0 10*3/uL NINF - 0.1 10*3/uL [facility] [employer] Immature granulocytes/100 WBC (Bld) 0.5 % 0.0 - 2.0 % [facility] Interpretation and review of laboratory results Abnormal [facility] [employer] Lymphocytes (Bld) [#/Vol] 2.6 10*3/uL 1.0 - 4.3 10*3/uL [facility] [employer] Lymphocytes/100 WBC (Bld) 44.2 % 15.0 - 45.0 % [facility] MCH (RBC) [Entitic mass] 30.7 pg 26.0 - 34.0 pg [facility] MCHC (RBC) [Mass/Vol] 32 % 30.5 - 36.0 % [facility] MCV (RBC) [Entitic vol] 96.1 fL 77.0 - 99.0 fL [facility] Monocytes (Bld) [#/Vol] 0.6 10*3/uL 0.0 - 0.9 10*3/uL [facility] Monocytes/100 WBC (Bld) 10 % 5.0 - 13.0 % [facility] Neutrophils (Bld) [#/Vol] 2.4 10*3/uL 1.8 - 7.5 10*3/uL [facility] Neutrophils/100 WBC (Bld) 41.5 % 38.0 - 82.0 % [facility] Nucleated RBC/100 WBC (Bld) [Ratio] 0 % [facility] Platelet mean volume (Bld) [Entitic vol] 9.2 fL 9.0 - 12.7 fL [facility] Platelets (Bld) [#/Vol] 190 10*3/uL 140 - 440 10*3/uL [facility] RBC (Bld) [#/Vol] 2.83 10*6/uL Low 3.80 - 5.20 10*6/uL [facility] WBC (Bld) [#/Vol] 5.9 10*3/uL 3.6 - 10.7 10*3/uL [facility] CBC WITH AUTO DIFFERENTIALon 07-02-2024 Basophils (Bld) [#/Vol] 0.0 10*3/uL Normal 0.0-0.2 [facility] Comment on above: Performed By: #### L [id number] ####Pin Setter: BRENDA JEAN ([id number])[facility] ([facility])[address] [place] [address] Basophils/100 WBC (Bld) 0.7 % Normal 0.0-2.0 [facility] Comment on above: Performed By: #### L [id number] ####Pin Setter: BRENDA JEAN ([id number])[facility] ([facility])[address] [place] [address] Eosinophils (Bld) [#/Vol] 0.2 10*3/uL Normal 0.0-0.5 [facility] Comment on above: Performed By: #### L [id number] ####Pin Setter: BRENDA CHASEDESEAN ([id number])[facility] ([facility])[address] Eosinophils/100 WBC (Bld) 3.1 % Normal 0.0-6.0 [facility] Comment on above: Performed By: #### L [id number] ####Pin Setter: BRENDA CHASEDESEAN ([id number])[facility] [place] (SBAB)[address] Erythrocyte distribution width (RBC) [Ratio] 13.1 % Normal 11.5-15.0 [facility] Comment on above: Performed By: #### L [id number] ####Pin Setter: BRENDA CHASEDESEAN ([id number])[facility] ([facility])[address] Hematocrit (Bld) [Volume fraction] 27.2 % Low 35.0-47.0 [facility] Comment on above: Performed By: #### L [id number] ####Pin Setter: BRENDA CHASEDESEAN ([id number])[facility] ([facility])[address] [place] [address] Hemoglobin (Bld) [Mass/Vol] 8.7 g/dL Low 11.7-16.0 [facility] Comment on above: Performed By: #### L [id number] ####Pin Setter: BRENDA JEAN ([id number])[facility] ([facility])[address] IMMATURE GRANS % 0.5 % Normal 0.0-2.0 [facility] Comment on above: Performed By: #### L [id number] ####Pin Setter: BRENDA JEAN ([id number])[facility] ([facility])[address] IMMATURE GRANS ABSOLUTE 0.0 10*3/uL Normal <0.1 [facility] Comment on above: Performed By: #### L [id number] ####Pin Setter: BRENDA GREENJaidenDESEAN ([id number])[facility] (SBHLAB)[address] Lymphocytes (Bld) [#/Vol] 2.6 10*3/uL Normal 1.0-4.3 [facility] Comment on above: Performed By: #### L [id number] ####Pin Setter: BRENDA CHASEDESEAN ([id number])[facility] ([facility])[address] Lymphocytes/100 WBC (Bld) 44.2 % Normal 15.0-45.0 [facility] Comment on above: Performed By: #### L [id number] ####Pin Setter: BRENDA JEAN ([id number])[facility] ([facility])[address] MCH (RBC) [Entitic mass] 30.7 pg Normal 26.0-34.0 [facility] Comment on above: Performed By: #### L [id number] ####Pin Setter: BRENDA JEAN ([id number])[facility] (SBHLAB)[address] [place] [address] MCHC 32.0 % Normal 30.5-36.0 [facility] Comment on above: Performed By: #### L [id number] ####Pin Setter: BRENDA JEAN ([id number])[facility] [place] (SBHLAB)[address] MCV (RBC) [Entitic vol] 96.1 fL Normal 77.0-99.0 [facility] Comment on above: Performed By: #### L [id number] ####Pin Setter: BRENDA JEAN ([id number])[facility] ([facility])[address] Monocytes (Bld) [#/Vol] 0.6 10*3/uL Normal 0.0-0.9 [facility] Comment on above: Performed By: #### L [id number] ####Pin Setter: BRENDA JEAN ([id number])[facility] [place] (SBHLAB)[address] Monocytes/100 WBC (Bld) 10.0 % Normal 5.0-13.0 [facility] Comment on above: Performed By: #### L [id number] ####Pin Setter: BRENDA CHASEDESEAN ([id number])[facility] [place] (SBHLAB)[address] NEUTROPHILS ABSOLUTE 2.4 10*3/uL Normal 1.8-7.5 [facility] Comment on above: Performed By: #### L [id number] ####Pin Setter: BRENDA CHASEDESEAN ([id number])[facility] [place] (SBHLAB)[address] Neutrophils/100 WBC (Bld) 41.5 % Normal 38.0-82.0 [facility] Comment on above: Performed By: #### L [id number] ####Pin Setter: BRENDA JEAN ([id number])[facility] [place] (SBHLAB)[address] NRBC 0.0 /100 WBCs Normal 0.0-2.0 [facility] Comment on above: Performed By: #### L [id number] ####Pin Setter: BRENDA JEAN ([id number])[facility] [place] (SBHLAB)[address] Platelet mean volume (Bld) [Entitic vol] 9.2 fL Normal 9.0-12.7 [facility] Comment on above: Performed By: #### L [id number] ####Pin Setter: BRENDA JEAN ([id number])[facility] [place] (SBHLAB)[address] [place] [address] [place] Platelets (Bld) [#/Vol] 190 10*3/uL Normal 140-440 [facility] Comment on above: Performed By: #### L [id number] ####Pin Setter: BRENDA JEAN ([id number])[facility] [place] (SBHLAB)[address] RBC (Bld) [#/Vol] 2.83 10*6/uL Low 3.80-5.20 [facility] Comment on above: Performed By: #### L [id number] ####Pin Setter: BRENDA JEAN ([id number])[facility] [place] (SBHLAB)[address] WBC (Bld) [#/Vol] 5.9 10*3/uL Normal 3.6-10.7 [facility] Comment on above: Performed By: #### L [id number] ####Pin Setter: BRENDA JEAN ([id number])[facility] (SB[facility])[address] Progress Noteon 07-02-2024 Progress Note Normal [facility] Progress Note Normal [facility] Progress Note Normal [facility] Progress Note Normal [facility] [id number] 07-01-2024 [id number] Normal [facility] BASIC METABOLIC PANELon 06-15 Anion gap [Moles/Vol] 5 mmol/L Normal 3-13 [facility] Comment on above: Performed By: #### L [id number] ####Pin Setter: BRENDA JEAN ([id number])[facility] (SBHLAB)[address] Calcium [Mass/Vol] 8.3 mg/dL Low 8.4-10.4 [facility] Comment on above: Performed By: #### L [id number] ####Pin Setter: BRENDA JEAN ([id number])[facility] [place] (SBHLAB)[address] Chloride [Moles/Vol] 100 mmol/L Normal 98-107 [facility] Comment on above: Performed By: #### L AB15 ####Pin Setter: BRENDA JEAN ([id number])[facility] [place] (SBHLAB)[address] CO2 [Moles/Vol] 24 mmol/L Normal 22-30 [facility] Comment on above: Performed By: #### L AB15 ####Pin Setter: BRENDA JEAN ([id number])[facility]ITAL[facility] (SBHLAB)[address] Creatinine [Mass/Vol] 2.64 mg/dL High 0.52-1.04 [facility] Comment on above: Performed By: #### L AB15 ####Pin Setter: BRENDA JEAN ([id number])[facility] (SBHLAB)[address] GLOMERULAR FILTRATION RATE ML/MIN/1.73 SQ M.PREDICTED 20.5 mL/min/1.73m*2 Low >60.0 [facility] Comment on above: Result Comment: Calc ulation based on the Chronic Kidney Disease Epidemiology Collaboration (CKD-EPI) equation refit without adjustment for race Performed By: #### L AB15 ####Pin Setter: BRENDA JEAN ([id number])[facility] [place] (SBHLAB)[address] Glucose [Mass/Vol] 89 mg/dL Normal 70-100 [facility] Comment on above: Performed By: #### L AB15 ####Pin Setter: BRENDA JEAN ([id number])[facility]ITAL[facility] [place] (SBHLAB)[address] [place] [address] [place] Potassium [Moles/Vol] 4.5 mmol/L Normal 3.5-5.1 [facility] Comment on above: Performed By: #### L AB15 ####Pin Setter: BRENDA JEAN ([id number])[facility] (SBHLAB)[address] [place] [address] [place] Sodium [Moles/Vol] 129 mmol/L Low 135-145 [facility] Comment on above: Performed By: #### L AB15 ####Pin Setter: BRENDA JEAN ([id number])[facility] (SBHLAB)[address] Urea nitrogen [Mass/Vol] 26 mg/dL High 7-17 [facility] Comment on above: Performed By: #### L AB15 ####Pin Setter: BRENDA JEAN ([id number])[facility] (SBHLAB)[address] Anion gap [Moles/Vol] 6 mmol/L Normal 3-13 [facility] Comment on above: Performed By: #### L AB15 ####Pin Setter: BRENDA JEAN ([id number])[facility] ([facility])[address] Calcium [Mass/Vol] 8.2 mg/dL Low 8.4-10.4 [facility] Comment on above: Performed By: #### L AB15 ####Pin Setter: BRENDA JEAN ([id number])[facility] (SBHLAB)[address] Chloride [Moles/Vol] 103 mmol/L Normal 98-107 [facility] Comment on above: Performed By: #### L AB15 ####Pin Setter: BRENDA JEAN ([id number])[facility] (SBHLAB)[address] [place] [address] [place] CO2 [Moles/Vol] 23 mmol/L Normal 22-30 [facility] Comment on above: Performed By: #### L AB15 ####Pin Setter: BRENDA JEAN ([id number])[facility] (SBHLAB)[address] Creatinine [Mass/Vol] 2.84 mg/dL High 0.52-1.04 [facility] Comment on above: Performed By: #### L AB15 ####Pin Setter: BRENDA JEAN ([id number])[facility]ITAL[facility]anny KO[facility]ANN (SBHLAB)[address] GLOMERULAR FILTRATION RATE ML/MIN/1.73 SQ M.PREDICTED 18.8 mL/min/1.73m*2 Low >60.0 [facility] Comment on above: Result Comment: Calc ulation based on the Chronic Kidney Disease Epidemiology Collaboration (CKD-EPI) equation refit without adjustment for race Performed By: #### L AB15 ####Pin Setter: BRENDA JEAN ([id number])[facility] [place] (SBHLAB)[address] Glucose [Mass/Vol] 76 mg/dL Normal 70-100 [facility] Comment on above: Performed By: #### L AB15 ####Pin Setter: BRENDA JEAN ([id number])[facility] [place] (SBHLAB)[address] Potassium [Moles/Vol] 4.7 mmol/L Normal 3.5-5.1 [facility] Comment on above: Performed By: #### L AB15 ####Pin Setter: BRENDA JEAN ([id number])[facility] [place] (SBHLAB)[address] Sodium [Moles/Vol] 132 mmol/L Low 135-145 [facility] Comment on above: Performed By: #### L AB15 ####Pin Setter: BRENDA JEAN ([id number])[facility]ITALJ[facility]anny [facility]ENTERJEANN (SBHLAB)[address] Urea nitrogen [Mass/Vol] 24 mg/dL High 7-17 [facility] Comment on above: Performed By: #### L AB15 ####Pin Setter: BRENDA JEAN ([id number])[facility] (SBHLAB)[address] Basic metabolic 1998 panelon 07-01-2024 Anion gap [Moles/Vol] 5 mmol/L 3 - 13 mmol/L [facility] Calcium [Mass/Vol] 8.3 mg/dL Low 8.4 - 10. 4 mg/dL [facility] Chloride [Moles/Vol] 100 mmol/L 98 - 10 7 mmol/L [facility] CO2 [Moles/Vol] 24 mmol/L 22 - 30 mmol/L [facility] Creatinine [Mass/Vol] 2.64 mg/dL High 0.52 - 1.04 mg/dL [facility] GFR/1.73 sq M.predicted (S/P/Bld) [Vol rate/Area] 20.5 mL/min Low - PINF [facility] Comment on above: Calculation based on the Chronic Kidney Disease Epidemiology Collaboration (CKD-EPI) equation refit without adjustment for race Glucose [Mass/Vol] 89 mg/dL 70 - 100 mg/dL [facility] Interpretation and review of laboratory results Abnormal [facility] Potassium [Moles/Vol] 4.5 mmol/L 3.5 - 5.1 mmol/L [facility] Sodium [Moles/Vol] 129 mmol/L Low 135 - 145 mmol/L [facility] Urea nitrogen [Mass/Vol] 26 mg/dL High 7 - 17 mg/dL [facility] Anion gap [Moles/Vol] 6 mmol/L 3 - 13 mmol/L [facility] Calcium [Mass/Vol] 8.2 mg/dL Low 8.4 - 10. 4 mg/dL [facility] Chloride [Moles/Vol] 103 mmol/L 98 - 10 7 mmol/L [facility] CO2 [Moles/Vol] 23 mmol/L 22 - 30 mmol/L [facility] Creatinine [Mass/Vol] 2.84 mg/dL High 0.52 - 1.04 mg/dL [facility] GFR/1.73 sq M.predicted (S/P/Bld) [Vol rate/Area] 18.8 mL/min Low - PINF [facility] Comment on above: Calculation based on the Chronic Kidney Disease Epidemiology Collaboration (CKD-EPI) equation refit without adjustment for race Glucose [Mass/Vol] 76 mg/dL 70 - 100 mg/dL [facility] Interpretation and review of laboratory results Abnormal [facility] Potassium [Moles/Vol] 4.7 mmol/L 3.5 - 5.1 mmol/L [facility] Sodium [Moles/Vol] 132 mmol/L Low 135 - 145 mmol/L [facility] Urea nitrogen [Mass/Vol] 24 mg/dL High 7 - 17 mg/dL [facility] CBC W Auto Differential pane l (Bld)on 07-01-2024 Basophils (Bld) [#/Vol] 0 10*3/uL 0.0 - 0.2 10*3/uL [facility] Basophils/100 WBC (Bld) 0.6 % 0.0 - 2.0 % [facility] Eosinophils (Bld) [#/Vol] 0.2 10*3/uL 0.0 - 0.5 10*3/uL [facility] Eosinophils/100 WBC (Bld) 3.2 % 0.0 - 6.0 % [facility] Erythrocyte distribution width (RBC) [Ratio] 13.2 % 11.5 - 15.0 % [facility] Hematocrit (Bld) [Volume fraction] 26.3 % Low 35.0 - 47.0 % [facility] Hemoglobin (Bld) [Mass/Vol] 8.4 g/dL Low 11.7 - 16.0 g/dL [facility] [employer] Immature granulocytes (Bld) [#/Vol] 0 10*3/uL NINF - 0.1 10*3/uL [facility] [employer] Immature granulocytes/100 WBC (Bld) 0.3 % 0.0 - 2.0 % [facility] Interpretation and review of laboratory results Abnormal [facility] Lymphocytes (Bld) [#/Vol] 3.1 10*3/uL 1.0 - 4.3 10*3/uL [facility] Lymphocytes/100 WBC (Bld) 47.3 % High 15.0 - 45.0 % [facility] MCH (RBC) [Entitic mass] 31.2 pg 26.0 - 34.0 pg [facility] MCHC (RBC) [Mass/Vol] 31.9 % 30.5 - 36.0 % [facility] MCV (RBC) [Entitic vol] 97.8 fL 77.0 - 99.0 fL [facility] [employer] Monocytes (Bld) [#/Vol] 0.7 10*3/uL 0.0 - 0.9 10*3/uL [facility] Monocytes/100 WBC (Bld) 10 % 5.0 - 13.0 % [facility] Neutrophils (Bld) [#/Vol] 2.5 10*3/uL 1.8 - 7.5 10*3/uL [facility] Neutrophils/100 WBC (Bld) 38.6 % 38.0 - 82.0 % [facility] Nucleated RBC/100 WBC (Bld) [Ratio] 0 % [facility] Platelet mean volume (Bld) [Entitic vol] 9.2 fL 9.0 - 12.7 fL [facility] Platelets (Bld) [#/Vol] 178 10*3/uL 140 - 440 10*3/uL [facility] RBC (Bld) [#/Vol] 2.69 10*6/uL Low 3.80 - 5.20 10*6/uL [facility] WBC (Bld) [#/Vol] 6.6 10*3/uL 3.6 - 10.7 10*3/uL [facility] CBC WITH AUTO DIFFERENTIALon 07-01-2024 Basophils (Bld) [#/Vol] 0.0 10*3/uL Normal 0.0-0.2 [facility] Comment on above: Performed By: #### L [id number] ####Pin Setter: BRENDA JEAN ([id number])[facility] (SB[facility])[address] Basophils/100 WBC (Bld) 0.6 % Normal 0.0-2.0 [facility] Comment on above: Performed By: #### L [id number] ####Pin Setter: BRENDA JEAN ([id number])[facility] (SBHLAB)[address] Eosinophils (Bld) [#/Vol] 0.2 10*3/uL Normal 0.0-0.5 [facility] Comment on above: Performed By: #### L [id number] ####Pin Setter: BRENDA JEAN ([id number])[facility] (SBHLAB)[address] [place] [address] [place] Eosinophils/100 WBC (Bld) 3.2 % Normal 0.0-6.0 [facility] Comment on above: Performed By: #### L [id number] ####Pin Setter: BRENDA JEAN ([id number])[facility] [place] (SBHLAB)[address] Erythrocyte distribution width (RBC) [Ratio] 13.2 % Normal 11.5-15.0 [facility] Comment on above: Performed By: #### L [id number] ####Pin Setter: BRENDA JEAN ([id number])[facility] [place] (SBHLAB)[address] Hematocrit (Bld) [Volume fraction] 26.3 % Low 35.0-47.0 [facility] Comment on above: Performed By: #### L [id number] ####Pin Setter: BRENDA JEAN ([id number])[facility] [place] ([facility])[address] [place] [address] Hemoglobin (Bld) [Mass/Vol] 8.4 g/dL Low 11.7-16.0 [facility] Comment on above: Performed By: #### L [id number] ####Pin Setter: BRENDA JEAN ([id number])[facility] [place] (SBHLAB)[address] [place] [address] IMMATURE GRANS % 0.3 % Normal 0.0-2.0 [facility] Comment on above: Performed By: #### L [id number] ####Pin Setter: BRENDA JEAN ([id number])[facility] ([facility])[address] [place] [address] IMMATURE GRANS ABSOLUTE 0.0 10*3/uL Normal <0.1 [facility] Comment on above: Performed By: #### L [id number] ####Pin Setter: BRENDA JEAN ([id number])[facility] [place] (SBHLAB)[address] [place] [address] Lymphocytes (Bld) [#/Vol] 3.1 10*3/uL Normal 1.0-4.3 [facility] Comment on above: Performed By: #### L [id number] ####Pin Setter: BRENDA JEAN ([id number])[facility] [place] (SBHLAB)[address] Lymphocytes/100 WBC (Bld) 47.3 % High 15.0-45.0 [facility] Comment on above: Performed By: #### L [id number] ####Pin Setter: BRENDA JEAN ([id number])[facility] [place] (SBHLAB)[address] MCH (RBC) [Entitic mass] 31.2 pg Normal 26.0-34.0 [facility] Comment on above: Performed By: #### L [id number] ####Pin Setter: BRENDA JEAN ([id number])[facility] (SB[facility]AB)[address] MCHC 31.9 % Normal 30.5-36.0 [facility] Comment on above: Performed By: #### L [id number] ####Pin Setter: BRENDA JEAN ([id number])[facility] (SBHLAB)[address] MCV (RBC) [Entitic vol] 97.8 fL Normal 77.0-99.0 [facility] Comment on above: Performed By: #### L [id number] ####Pin Setter: BRENDA JEAN ([id number])[facility] (SBHLAB)[address] [place] [address] Monocytes (Bld) [#/Vol] 0.7 10*3/uL Normal 0.0-0.9 [facility] Comment on above: Performed By: #### L [id number] ####Pin Setter: BRENDA JEAN ([id number])[facility] [place] ([facility])[address] [place] [address] [place] Monocytes/100 WBC (Bld) 10.0 % Normal 5.0-13.0 [facility] Comment on above: Performed By: #### L [id number] ####Pin Setter: BRENDA JEAN ([id number])[facility])[address] NEUTROPHILS ABSOLUTE 2.5 10*3/uL Normal 1.8-7.5 [facility] Comment on above: Performed By: #### L [id number] ####Pin Setter: BRENDA JEAN ([id number])[facility] [place] ([facility])[address] Neutrophils/100 WBC (Bld) 38.6 % Normal 38.0-82.0 [facility] Comment on above: Performed By: #### L [id number] ####Pin Setter: BRENDA JEAN ([id number])[facility] [place] ([facility])[address] NRBC 0.0 /100 WBCs Normal 0.0-2.0 [facility] Comment on above: Performed By: #### L [id number] ####Pin Setter: BRENDA JEAN ([id number])[facility] [place] ([facility])[address] Platelet mean volume (Bld) [Entitic vol] 9.2 fL Normal 9.0-12.7 [facility] Comment on above: Performed By: #### L [id number] ####Pin Setter: BRENDA JEAN ([id number])[facility] [place] ([facility])[address] Platelets (Bld) [#/Vol] 178 10*3/uL Normal 140-440 [facility] Comment on above: Performed By: #### L [id number] ####Pin Setter: BRENDA JEAN ([id number])[facility] [place] ([facility])[address] [place] [address] [place] RBC (Bld) [#/Vol] 2.69 10*6/uL Low 3.80-5.20 [facility] Comment on above: Performed By: #### L [id number] ####Pin Setter: BRENDA JEAN ([id number])[facility] [place] (SB[facility])[address] WBC (Bld) [#/Vol] 6.6 10*3/uL Normal 3.6-10.7 [facility] Comment on above: Performed By: #### L [id number] ####Pin Setter: BRENDA JEAN ([id number])[facility] (SBHLAB)[address] Consulton 07-01-2024 Consult Normal [facility] Progress Noteon 07-01-2024 Progress Note Normal [facility] BASIC METABOLIC PANELon 06-15 Anion gap [Moles/Vol] 4 mmol/L Normal 3-13 [facility] Comment on above: Performed By: #### L AB129, LAB15 ####Pin Setter: BRENDA JEAN ([id number])[facility] ([facility] Calcium [Mass/Vol] 7.7 mg/dL Low 8.4-10.4 [facility] Comment on above: Performed By: #### L AB129, LAB15 ####Pin Setter: BRENDA JEAN ([id number])[facility] (SBHLAB)[address] Chloride [Moles/Vol] 101 mmol/L Normal 98-107 [facility] Comment on above: Performed By: #### L AB129, LAB15 ####Pin Setter: BRENDA JEAN ([id number])[facility] (SBHLAB)[address] CO2 [Moles/Vol] 22 mmol/L Normal 22-30 [facility] Comment on above: Performed By: #### L AB129, LAB15 ####Pin Setter: BRENDA JEAN ([id number])[facility] (SBHLAB)[address] Creatinine [Mass/Vol] 2.81 mg/dL High 0.52-1.04 [facility] Comment on above: Performed By: #### L AB129, LAB15 ####Pin Setter: BRENDA JEAN ([id number])[facility] (SBHLAB)[address] GLOMERULAR FILTRATION RATE ML/MIN/1.73 SQ M.PREDICTED 19.1 mL/min/1.73m*2 Low >60.0 [facility] Comment on above: Result Comment: Calc ulation based on the Chronic Kidney Disease Epidemiology Collaboration (CKD-EPI) equation refit without adjustment for race Performed By: #### L AB129, LAB15 ####Pin Setter: BRENDA JEAN ([id number])[facility] (SBHLAB)[address] Glucose [Mass/Vol] 82 mg/dL Normal 70-100 [facility] Comment on above: Performed By: #### L AB129, LAB15 ####Pin Setter: BRENDA JEAN ([id number])[facility] (SBHLAB)[address] Potassium [Moles/Vol] 4.3 mmol/L Normal 3.5-5.1 [facility] Comment on above: Performed By: #### L AB129, LAB15 ####Pin Setter: BRENDA JEAN ([id number])[facility] [place] (SBHLAB)[address] Sodium [Moles/Vol] 127 mmol/L Low 135-145 [facility] Comment on above: Performed By: #### L AB129, LAB15 ####Pin Setter: BRENDA JEAN ([id number])[facility] (SBHLAB)[address] [place] [address] [place] Urea nitrogen [Mass/Vol] 21 mg/dL High 7-17 [facility] Comment on above: Performed By: #### L AB129, LAB15 ####Pin Setter: BRENDA JEAN ([id number])[facility] (SBHLAB)[address] Bacteria identified Cx Nom ( U)Ordered By: Rahul Manning on 06-30-2024 Interpretation and review of laboratory results Abnormal [facility] Basic metabolic 1998 panelon 06-30-2024 Anion gap [Moles/Vol] 4 mmol/L 3 - 13 mmol/L [facility] Calcium [Mass/Vol] 7.7 mg/dL Low 8.4 - 10. 4 mg/dL [facility] Chloride [Moles/Vol] 101 mmol/L 98 - 10 7 mmol/L [facility] CO2 [Moles/Vol] 22 mmol/L 22 - 30 mmol/L [facility] Creatinine [Mass/Vol] 2.81 mg/dL High 0.52 - 1.04 mg/dL [facility] GFR/1.73 sq M.predicted (S/P/Bld) [Vol rate/Area] 19.1 mL/min Low - PINF [facility] Comment on above: Calculation based on the Chronic Kidney Disease Epidemiology Collaboration (CKD-EPI) equation refit without adjustment for race Glucose [Mass/Vol] 82 mg/dL 70 - 100 mg/dL [facility] Interpretation and review of laboratory results Abnormal [facility] Potassium [Moles/Vol] 4.3 mmol/L 3.5 - 5.1 mmol/L [facility] Sodium [Moles/Vol] 127 mmol/L Low 135 - 145 mmol/L [facility] Urea nitrogen [Mass/Vol] 21 mg/dL High 7 - 17 mg/dL [facility] CBC W Auto Differential pane l (Bld)on 06-30-2024 Basophils (Bld) [#/Vol] 0 10*3/uL 0.0 - 0.2 10*3/uL [facility] Basophils/100 WBC (Bld) 0.5 % 0.0 - 2.0 % [facility] Eosinophils (Bld) [#/Vol] 0.2 10*3/uL 0.0 - 0.5 10*3/uL [facility] Eosinophils/100 WBC (Bld) 3.1 % 0.0 - 6.0 % [facility] Erythrocyte distribution width (RBC) [Ratio] 12.9 % 11.5 - 15.0 % [facility] Hematocrit (Bld) [Volume fraction] 24.2 % Low 35.0 - 47.0 % [facility] Hemoglobin (Bld) [Mass/Vol] 7.4 g/dL Low 11.7 - 16.0 g/dL [facility] Immature granulocytes (Bld) [#/Vol] 0 10*3/uL NINF - 0.1 10*3/uL [facility] Immature granulocytes/100 WBC (Bld) 0.5 % 0.0 - 2.0 % [facility] Interpretation and review of laboratory results Abnormal [facility] Lymphocytes (Bld) [#/Vol] 2.1 10*3/uL 1.0 - 4.3 10*3/uL [facility] Lymphocytes/100 WBC (Bld) 31.5 % 15.0 - 45.0 % [facility] MCH (RBC) [Entitic mass] 30.3 pg 26.0 - 34.0 pg [facility] MCHC (RBC) [Mass/Vol] 30.6 % 30.5 - 36.0 % [facility] MCV (RBC) [Entitic vol] 99.2 fL High 77.0 - 99.0 fL [facility] Monocytes (Bld) [#/Vol] 0.8 10*3/uL 0.0 - 0.9 10*3/uL [facility] Monocytes/100 WBC (Bld) 11.5 % 5.0 - 13.0 % [facility] Neutrophils (Bld) [#/Vol] 3.5 10*3/uL 1.8 - 7.5 10*3/uL [facility] Neutrophils/100 WBC (Bld) 52.9 % 38.0 - 82.0 % [facility] Nucleated RBC/100 WBC (Bld) [Ratio] 0 % [facility] Platelet mean volume (Bld) [Entitic vol] 9.5 fL 9.0 - 12.7 fL [facility] Platelets (Bld) [#/Vol] 147 10*3/uL 140 - 440 10*3/uL [facility] RBC (Bld) [#/Vol] 2.44 10*6/uL Low 3.80 - 5.20 10*6/uL [facility] WBC (Bld) [#/Vol] 6.6 10*3/uL 3.6 - 10.7 10*3/uL [facility] CBC WITH AUTO DIFFERENTIALon 06-30-2024 Basophils (Bld) [#/Vol] 0.0 10*3/uL Normal 0.0-0.2 [facility] Comment on above: Performed By: #### L [id number] ####Pin Setter: BRENDA JEAN ([id number])[facility] [place] (SBHLAB)[address] [place] [address] Basophils/100 WBC (Bld) 0.5 % Normal 0.0-2.0 [facility] Comment on above: Performed By: #### L [id number] ####Pin Setter: BRENDA JEAN ([id number])[facility] [place] (SBHLAB)[address] [place] [address] Eosinophils (Bld) [#/Vol] 0.2 10*3/uL Normal 0.0-0.5 [facility] Comment on above: Performed By: #### L [id number] ####Pin Setter: BRENDA CHASEDESEAN ([id number])[facility] [place] (SB[facility])[address] [place] [address] Eosinophils/100 WBC (Bld) 3.1 % Normal 0.0-6.0 [facility] Comment on above: Performed By: #### L [id number] ####Pin Setter: BRENDA JEAN ([id number])[facility] [place] (SBAB)[address] [place] [address] Erythrocyte distribution width (RBC) [Ratio] 12.9 % Normal 11.5-15.0 [facility] Comment on above: Performed By: #### L [id number] ####Pin Setter: BRENDA JEAN ([id number])[facility] [place] (SBHLAB)[address] [place] [address] Hematocrit (Bld) [Volume fraction] 24.2 % Low 35.0-47.0 [facility] Comment on above: Performed By: #### L [id number] ####Pin Setter: BRENDA JEAN ([id number])[facility] [place] (SBAB)[address] [place] [address] Hemoglobin (Bld) [Mass/Vol] 7.4 g/dL Low 11.7-16.0 [facility] Comment on above: Performed By: #### L [id number] ####Pin Setter: BRENDA JEAN ([id number])[facility] (SBAB)[address] [place] [address] IMMATURE GRANS % 0.5 % Normal 0.0-2.0 [facility] Comment on above: Performed By: #### L [id number] ####Pin Setter: BRENDA JEAN ([id number])[facility] (SBAB)[address] IMMATURE GRANS ABSOLUTE 0.0 10*3/uL Normal <0.1 [facility] Comment on above: Performed By: #### L [id number] ####Pin Setter: BRENDA JEAN ([id number])[facility] ([facility])[address] [place] [address] Lymphocytes (Bld) [#/Vol] 2.1 10*3/uL Normal 1.0-4.3 [facility] Comment on above: Performed By: #### L [id number] ####Pin Setter: BRENDA JEAN ([id number])[facility] ([facility])[address] [place] [address] Lymphocytes/100 WBC (Bld) 31.5 % Normal 15.0-45.0 [facility] Comment on above: Performed By: #### L [id number] ####Pin Setter: BRENDA JEAN ([id number])[facility] ([facility])[address] [place] [address] MCH (RBC) [Entitic mass] 30.3 pg Normal 26.0-34.0 [facility] Comment on above: Performed By: #### L [id number] ####Pin Setter: BRENDA JEAN ([id number])[facility] ([facility])[address] [place] [address] MCHC 30.6 % Normal 30.5-36.0 [facility] Comment on above: Performed By: #### L [id number] ####Pin Setter: BRENDA GREENJaidenDESEAN ([id number])[facility] [place] (SB[facility])[address] MCV (RBC) [Entitic vol] 99.2 fL High 77.0-99.0 [facility] Comment on above: Performed By: #### L [id number] ####Pin Setter: BRENDA MIRANDA ([id number])[facility] [place] (SB[facility])[address] Monocytes (Bld) [#/Vol] 0.8 10*3/uL Normal 0.0-0.9 [facility] Comment on above: Performed By: #### L [id number] ####Pin Setter: BRENDA MIRANDA ([id number])[facility] [place] (SB[facility]AB)[address] Monocytes/100 WBC (Bld) 11.5 % Normal 5.0-13.0 [facility] Comment on above: Performed By: #### L [id number] ####Pin Setter: BRENDA MIRANDA ([id number])[facility] [place] (SB[facility]AB)[address] NEUTROPHILS ABSOLUTE 3.5 10*3/uL Normal 1.8-7.5 [facility] Comment on above: Performed By: #### L [id number] ####Pin Setter: BRENDA CHASEDESEAN ([id number])[facility] [place] (SB[facility])[address] Neutrophils/100 WBC (Bld) 52.9 % Normal 38.0-82.0 [facility] Comment on above: Performed By: #### L [id number] ####Pin Setter: BRENDA CHASEDESEAN ([id number])[facility] [place] (SB[facility])[address] NRBC 0.0 /100 WBCs Normal 0.0-2.0 [facility] Comment on above: Performed By: #### L [id number] ####Pin Setter: BRENDA GREENJaidenDESEAN ([id number])[facility] (SBHLAB)[address] Platelet mean volume (Bld) [Entitic vol] 9.5 fL Normal 9.0-12.7 [facility] Comment on above: Performed By: #### L [id number] ####Pin Setter: BRENDA GREENMECCA ([id number])[facility] (SB[facility]AB)[address] Platelets (Bld) [#/Vol] 147 10*3/uL Normal 140-440 [facility] Comment on above: Performed By: #### L [id number] ####Pin Setter: BRENDA JEAN ([id number])[facility] [place] (SBHLAB)[address] [place] [address] RBC (Bld) [#/Vol] 2.44 10*6/uL Low 3.80-5.20 [facility] Comment on above: Performed By: #### L [id number] ####Pin Setter: BRENDA CHASEDESEAN ([id number])[facility] (SBHLAB)[address] WBC (Bld) [#/Vol] 6.6 10*3/uL Normal 3.6-10.7 [facility] Comment on above: Performed By: #### L [id number] ####Pin Setter: BRENDA JEAN ([id number])[facility] (SB[facility])[address] Laboratory - Chemistry and C hemistry - challengeon 06-30-2024 Osmolality [Osmolality] 283 mosm/kg [facility] Sodium (24H U) [Mass/Vol] 13 mmol/L Low 30 - 90 mmol/L [facility] TSH Qn 0.261 m[IU]/L Low [facility] Laboratory - Microbiology an d Antimicrobial susceptibilityOrdered By: Rahul Manning on 06-30-2024 Bacteria identified Cx Nom (U) >100,000 CFU/mL Escherichia coli Abnormal [facility] No Panel InformationOrdered By: Kelsea Barger on 06-30-2024 Interpretation and review of laboratory results Abnormal [facility] OSMOLALITY, URINE 116 Low [facility] No Panel Informationon 06-30 Interpretation and review of laboratory results Normal [facility] Interpretation and review of laboratory results Abnormal [facility] OSMOLALITY, SERUMon 06-30-20 24 OSMOLALITY, SERUM 283 mOsm/kg Normal 280-300 [facility] Comment on above: Performed By: #### L [id number] ####Pin Setter: BRENDA JEAN ([id number])[facility]ITAL[facility] [place] (SBHLAB)[address] OSMOLALITY, URINEon 06-30-20 24 OSMOLALITY, URINE 116 mOsm/kg Low 300-1000 [facility] Comment on above: Performed By: #### L [id number], [id number] ####Pin Setter: BRENDA JEAN ([id number])[facility]ITAL[facility] (SBHLAB)[address] Progress Noteon 06-30-2024 Progress Note Normal [facility] Progress Note Normal [facility] Progress Note Normal [facility] Progress Note Nutrition rescreen complete. Pt assigned a level one for nutrition care. Normal [facility] SODIUM, URINE, RANDOMon 06-15 Sodium (U) [Moles/Vol] 13 mmol/L Low 30-90 [facility] Comment on above: Performed By: #### L [id number], [id number] ####Pin Setter: BRENDA JEAN ([id number])[facility]ITAL[facility] [place] (SBHLAB)[address] THYROID STIMULATING HORMONEo n 06-30-2024 THYROID STIMULATING HORMONE 0.261 uIU/mL Low 0.465-4.68 0 [facility] Comment on above: Performed By: #### L AB129, LAB15 ####Pin Setter: BRENDA JEAN ([id number])[facility] [place] (SBHLAB)[address] TSH Qnon 06-30-2024 Interpretation and review of laboratory results Abnormal [facility] BASIC METABOLIC PANELon 11-1 Anion gap [Moles/Vol] 8 mmol/L Normal 3-13 [facility] Comment on above: Performed By: #### L AB15 ####Pin Setter: BRENDA JEAN ([id number])[facility] (SBHLAB)[address] Calcium [Mass/Vol] 8.2 mg/dL Low 8.4-10.4 [facility] Comment on above: Performed By: #### L AB15 ####Pin Setter: BRENDA JEAN ([id number])[facility] ([facility])[address] Chloride [Moles/Vol] 98 mmol/L Normal 98-107 [facility] Comment on above: Performed By: #### L AB15 ####Pin Setter: BRENDA JEAN ([id number])[facility] (SB[facility]AB)[address] CO2 [Moles/Vol] 24 mmol/L Normal 22-30 [facility] Comment on above: Performed By: #### L AB15 ####Pin Setter: BRENDA JEAN ([id number])[facility] ([facility])[address] Creatinine [Mass/Vol] 3.02 mg/dL High 0.52-1.04 [facility] Comment on above: Performed By: #### L AB15 ####Pin Setter: BRENDA JEAN ([id number])[facility] (SBHLAB)[address] [place] [address] [place] GLOMERULAR FILTRATION RATE ML/MIN/1.73 SQ M.PREDICTED 17.5 mL/min/1.73m*2 Low >60.0 [facility] Comment on above: Result Comment: Calc ulation based on the Chronic Kidney Disease Epidemiology Collaboration (CKD-EPI) equation refit without adjustment for race Performed By: #### L AB15 ####Pin Setter: BRENDA [id number])[facility]ITAL[facility] AARONHolly (SBHLAB)[address] Glucose [Mass/Vol] 120 mg/dL High 70-100 [facility] Comment on above: Performed By: #### L AB15 ####Pin Setter: BRENDA JEAN ([id number])[facility] (SBHLAB)[address] Potassium [Moles/Vol] 3.7 mmol/L Normal 3.5-5.1 [facility] Comment on above: Performed By: #### L AB15 ####Pin Setter: BRENDA JEAN ([id number])[facility]ITAL[facility] [place] (SBHLAB)[address] Sodium [Moles/Vol] 130 mmol/L Low 135-145 [facility] Comment on above: Performed By: #### L AB15 ####Pin Setter: BRENDA JEAN ([id number])[facility] (SBHLAB)[address] Urea nitrogen [Mass/Vol] 20 mg/dL High 7-17 [facility] Comment on above: Performed By: #### L AB15 ####Pin Setter: BRENDA JEAN ([id number])[facility] (HLAB)[address] [place] [address] Basic metabolic 1998 panelon 06-29-2024 Anion gap [Moles/Vol] 8 mmol/L 3 - 13 mmol/L [facility] Calcium [Mass/Vol] 8.2 mg/dL Low 8.4 - 10. 4 mg/dL [facility] Chloride [Moles/Vol] 98 mmol/L 98 - 10 7 mmol/L [facility] CO2 [Moles/Vol] 24 mmol/L 22 - 30 mmol/L [facility] Creatinine [Mass/Vol] 3.02 mg/dL High 0.52 - 1.04 mg/dL [facility] GFR/1.73 sq M.predicted (S/P/Bld) [Vol rate/Area] 17.5 mL/min Low - PINF [facility] Comment on above: Calculation based on the Chronic Kidney Disease Epidemiology Collaboration (CKD-EPI) equation refit without adjustment for race Glucose [Mass/Vol] 120 mg/dL High 70 - 100 mg/dL [facility] Interpretation and review of laboratory results Abnormal [facility] Potassium [Moles/Vol] 3.7 mmol/L 3.5 - 5.1 mmol/L [facility] Sodium [Moles/Vol] 130 mmol/L Low 135 - 145 mmol/L [facility] Urea nitrogen [Mass/Vol] 20 mg/dL High 7 - 17 mg/dL [facility] CBC W Auto Differential pane l (Bld)on 06-29-2024 Basophils (Bld) [#/Vol] 0 10*3/uL 0.0 - 0.2 10*3/uL [facility] Basophils/100 WBC (Bld) 0.3 % 0.0 - 2.0 % [facility] Eosinophils (Bld) [#/Vol] 0.1 10*3/uL 0.0 - 0.5 10*3/uL [facility] Eosinophils/100 WBC (Bld) 1.6 % 0.0 - 6.0 % [facility] Erythrocyte distribution width (RBC) [Ratio] 13 % 11.5 - 15.0 % [facility] Hematocrit (Bld) [Volume fraction] 27.2 % Low 35.0 - 47.0 % [facility] Hemoglobin (Bld) [Mass/Vol] 8.6 g/dL Low 11.7 - 16.0 g/dL [facility] Immature granulocytes (Bld) [#/Vol] 0 10*3/uL NINF - 0.1 10*3/uL [facility] Immature granulocytes/100 WBC (Bld) 0.3 % 0.0 - 2.0 % [facility] Interpretation and review of laboratory results Abnormal [facility] Lymphocytes (Bld) [#/Vol] 2.6 10*3/uL 1.0 - 4.3 10*3/uL [facility] Lymphocytes/100 WBC (Bld) 39.4 % 15.0 - 45.0 % [facility] MCH (RBC) [Entitic mass] 30.8 pg 26.0 - 34.0 pg [facility] MCHC (RBC) [Mass/Vol] 31.6 % 30.5 - 36.0 % [facility] MCV (RBC) [Entitic vol] 97.5 fL 77.0 - 99.0 fL [facility] Monocytes (Bld) [#/Vol] 0.6 10*3/uL 0.0 - 0.9 10*3/uL [facility] Monocytes/100 WBC (Bld) 9.4 % 5.0 - 13.0 % [facility] Neutrophils (Bld) [#/Vol] 3.3 10*3/uL 1.8 - 7.5 10*3/uL [facility] Neutrophils/100 WBC (Bld) 49 % 38.0 - 82.0 % [facility] Nucleated RBC/100 WBC (Bld) [Ratio] 0 % [facility] Platelet mean volume (Bld) [Entitic vol] 9.3 fL 9.0 - 12.7 fL [facility] Platelets (Bld) [#/Vol] 164 10*3/uL 140 - 440 10*3/uL [facility] RBC (Bld) [#/Vol] 2.79 10*6/uL Low 3.80 - 5.20 10*6/uL [facility] WBC (Bld) [#/Vol] 6.7 10*3/uL 3.6 - 10.7 10*3/uL [facility] CBC WITH AUTO DIFFERENTIALon 06-29-2024 Basophils (Bld) [#/Vol] 0.0 10*3/uL Normal 0.0-0.2 [facility] Comment on above: Performed By: #### L [id number] ####Pin Setter: BRENDA JEAN ([id number])[facility] ([facility])[address] [place] [address] Basophils/100 WBC (Bld) 0.3 % Normal 0.0-2.0 [facility] Comment on above: Performed By: #### L [id number] ####Pin Setter: BRENDA JEAN ([id number])[facility] ([facility])[address] [place] [address] Eosinophils (Bld) [#/Vol] 0.1 10*3/uL Normal 0.0-0.5 [facility] Comment on above: Performed By: #### L [id number] ####Pin Setter: BRENDA GREENJaidenDESEAN ([id number])[facility] (SBHLAB)[address] Eosinophils/100 WBC (Bld) 1.6 % Normal 0.0-6.0 [facility] Comment on above: Performed By: #### L [id number] ####Pin Setter: BRENDA CHASEDESEAN ([id number])[facility] ([facility])[address] Erythrocyte distribution width (RBC) [Ratio] 13.0 % Normal 11.5-15.0 [facility] Comment on above: Performed By: #### L [id number] ####Pin Setter: BRENDA CHASEDESEAN ([id number])[facility] ([facility])[address] [place] [address] Hematocrit (Bld) [Volume fraction] 27.2 % Low 35.0-47.0 [facility] Comment on above: Performed By: #### L [id number] ####Pin Setter: BRENDA MIRANDA ([id number])[facility] ([facility])[address] Hemoglobin (Bld) [Mass/Vol] 8.6 g/dL Low 11.7-16.0 [facility] Comment on above: Performed By: #### L [id number] ####Pin Setter: BRENDA CHASEDESEAN ([id number])[facility] ([facility])[address] IMMATURE GRANS % 0.3 % Normal 0.0-2.0 [facility] Comment on above: Performed By: #### L [id number] ####Pin Setter: BRENDA CHASEDESEAN ([id number])[facility] ([facility])[address] IMMATURE GRANS ABSOLUTE 0.0 10*3/uL Normal <0.1 [facility] Comment on above: Performed By: #### L [id number] ####Pin Setter: BRENDA CHASEDESEAN ([id number])[facility] A[facility]N (SBHLAB)[address] Lymphocytes (Bld) [#/Vol] 2.6 10*3/uL Normal 1.0-4.3 [facility] Comment on above: Performed By: #### L [id number] ####Pin Setter: BRENDA CHASEDESEAN ([id number])[facility]ITALJ[facility]anny [facility] (SBHLAB)[address] Lymphocytes/100 WBC (Bld) 39.4 % Normal 15.0-45.0 [facility] Comment on above: Performed By: #### L [id number] ####Pin Setter: BRENDA CHASEDESEAN ([id number])[facility]ITAL[facility] (SBHLAB)[address] [place] [address] MCH (RBC) [Entitic mass] 30.8 pg Normal 26.0-34.0 [facility] Comment on above: Performed By: #### L [id number] ####Pin Setter: BRENDA GREENJaidenDESEAN ([id number])[facility]ITALJ[facility]anny [facility]ITAL[facility] (SBHLAB)[address] MCHC 31.6 % Normal 30.5-36.0 [facility] Comment on above: Performed By: #### L [id number] ####Pin Setter: BRENDA CHASEDESEAN ([id number])[facility]ITALJ[facility]ITAL[facility] (SBHLAB)[address] [place] [address] MCV (RBC) [Entitic vol] 97.5 fL Normal 77.0-99.0 [facility] Comment on above: Performed By: #### L [id number] ####Pin Setter: BRENDA CHASEDESEAN ([id number])[facility]ITALJ[facility]anny [facility] (SBHLAB)[address] Monocytes (Bld) [#/Vol] 0.6 10*3/uL Normal 0.0-0.9 [facility] Comment on above: Performed By: #### L [id number] ####Pin Setter: BRENDA JEAN ([id number])[facility] (SBHLAB)[address] Monocytes/100 WBC (Bld) 9.4 % Normal 5.0-13.0 [facility] Comment on above: Performed By: #### L [id number] ####Pin Setter: BRENDA JEAN ([id number])[facility] [facility] [place] ([facility] NEUTROPHILS ABSOLUTE 3.3 10*3/uL Normal 1.8-7.5 [facility] Comment on above: Performed By: #### L [id number] ####Pin Setter: BRENDA JEAN ([id number])[facility] [place] ([facility] Neutrophils/100 WBC (Bld) 49.0 % Normal 38.0-82.0 [facility] Comment on above: Performed By: #### L [id number] ####Pin Setter: BRENDA CHASEDESEAN ([id number])[facility] [place] ([facility])[address] NRBC 0.0 /100 WBCs Normal 0.0-2.0 [facility] Comment on above: Performed By: #### L [id number] ####Pin Setter: BRENDA JEAN ([id number])[facility] [place] ([facility])[address] Platelet mean volume (Bld) [Entitic vol] 9.3 fL Normal 9.0-12.7 [facility] Comment on above: Performed By: #### L [id number] ####Pin Setter: BRENDA JEAN ([id number])[facility] [place] ([facility])[address] Platelets (Bld) [#/Vol] 164 10*3/uL Normal 140-440 [facility] Comment on above: Performed By: #### L [id number] ####Pin Setter: BRENDA JEAN ([id number])[facility] RBC (Bld) [#/Vol] 2.79 10*6/uL Low 3.80-5.20 [facility] Comment on above: Performed By: #### L [id number] ####Pin Setter: BRENDA JEAN ([id number])[facility] (SBAB)[address] [place] [address] WBC (Bld) [#/Vol] 6.7 10*3/uL Normal 3.6-10.7 [facility] Comment on above: Performed By: #### L [id number] ####Pin Setter: BRENDA SILVACER ([id number])[facility] ([facility] [place] [address] Progress Noteon 06-29-2024 Progress Note Normal [facility] Progress Note Normal [facility] Progress Note Normal [facility] AMMONIAon 06-28-2024 Ammonia (P) [Moles/Vol] 12 umol/L Normal 9-30 [facility] Comment on above: Performed By: #### L [id number] ####Pin Setter: BRENDA JEAN ([id number])[facility] ([facility])[address] [place] [address] CBC W Auto Differential pane l (Bld)on 06-28-2024 Basophils (Bld) [#/Vol] 0 10*3/uL 0.0 - 0.2 10*3/uL [facility] Basophils/100 WBC (Bld) 0.3 % 0.0 - 2.0 % [facility] Eosinophils (Bld) [#/Vol] 0.1 10*3/uL 0.0 - 0.5 10*3/uL [facility] Eosinophils/100 WBC (Bld) 1 % 0.0 - 6.0 % [facility] Erythrocyte distribution width (RBC) [Ratio] 13.1 % 11.5 - 15.0 % [facility] Hematocrit (Bld) [Volume fraction] 27.8 % Low 35.0 - 47.0 % [facility] Hemoglobin (Bld) [Mass/Vol] 8.8 g/dL Low 11.7 - 16.0 g/dL [facility] Immature granulocytes (Bld) [#/Vol] 0 10*3/uL NINF - 0.1 10*3/uL [facility] Immature granulocytes/100 WBC (Bld) 0.2 % 0.0 - 2.0 % [facility] Interpretation and review of laboratory results Abnormal [facility] Lymphocytes (Bld) [#/Vol] 2.1 10*3/uL 1.0 - 4.3 10*3/uL [facility] Lymphocytes/100 WBC (Bld) 20.7 % 15.0 - 45.0 % [facility] MCH (RBC) [Entitic mass] 30.8 pg 26.0 - 34.0 pg [facility] MCHC (RBC) [Mass/Vol] 31.7 % 30.5 - 36.0 % [facility] MCV (RBC) [Entitic vol] 97.2 fL 77.0 - 99.0 fL [facility] Monocytes (Bld) [#/Vol] 1.1 10*3/uL High 0.0 - 0.9 10*3/uL [facility] Monocytes/100 WBC (Bld) 10.8 % 5.0 - 13.0 % [facility] Neutrophils (Bld) [#/Vol] 6.7 10*3/uL 1.8 - 7.5 10*3/uL [facility] Neutrophils/100 WBC (Bld) 67 % 38.0 - 82.0 % [facility] Nucleated RBC/100 WBC (Bld) [Ratio] 0 % [facility] Platelet mean volume (Bld) [Entitic vol] 9.2 fL 9.0 - 12.7 fL [facility] Comment on above: MPV is a calculated measurement using platelet volume ratio Platelets (Bld) [#/Vol] 186 10*3/uL 140 - 440 10*3/uL [facility] RBC (Bld) [#/Vol] 2.86 10*6/uL Low 3.80 - 5.20 10*6/uL [facility] WBC (Bld) [#/Vol] 10 10*3/uL 3.6 - 10.7 10*3/uL [facility] CBC WITH AUTO DIFFERENTIALon 06-28-2024 Basophils (Bld) [#/Vol] 0.0 10*3/uL Normal 0.0-0.2 [facility] Comment on above: Performed By: #### L [id number] ####Pin Setter: JULI JONES ([id number])[facility] [place] [facility] (SWRLAB)[address] [place] [address] Basophils/100 WBC (Bld) 0.3 % Normal 0.0-2.0 [facility] Comment on above: Performed By: #### L [id number] ####Pin Setter: JULI JONES ([id number])[facility] [place] [facility] (SWRLAB)[address] [place] [address] Eosinophils (Bld) [#/Vol] 0.1 10*3/uL Normal 0.0-0.5 [facility] Comment on above: Performed By: #### L [id number] ####Pin Setter: JULI JONES ([id number])[facility] [place] [facility] (SWRL[facility])[address] [place] [address] [place] Eosinophils/100 WBC (Bld) 1.0 % Normal 0.0-6.0 [facility] Comment on above: Performed By: #### L [id number] ####Pin Setter: JULI JONES ([id number])[facility] [place] [facility] (SWRL[facility])[address] [place] [address] Erythrocyte distribution width (RBC) [Ratio] 13.1 % Normal 11.5-15.0 [facility] Comment on above: Performed By: #### L [id number] ####Pin Setter: JULI JONES ([id number])[facility] [place] [facility] ([facility]RL[facility])[address] [place] [address] Hematocrit (Bld) [Volume fraction] 27.8 % Low 35.0-47.0 [facility] Comment on above: Performed By: #### L [id number] ####Pin Setter: JULI JONES ([id number])[facility] (SWRL[facility])[address] [place] [address] Hemoglobin (Bld) [Mass/Vol] 8.8 g/dL Low 11.7-16.0 [facility] Comment on above: Performed By: #### L [id number] ####Pin Setter: JULI JONES ([id number])[facility]ITALJoh[facility] [place] (SWRLAB)[address] [place] [address] IMMATURE GRANS % 0.2 % Normal 0.0-2.0 [facility] Comment on above: Performed By: #### L [id number] ####Pin Setter: JULI JONES ([id number])[facility]ITALJ[facility] [place] (SWRLAB)[address] [place] [address] IMMATURE GRANS ABSOLUTE 0.0 10*3/uL Normal <0.1 [facility] Comment on above: Performed By: #### L [id number] ####Pin Setter: JULI JONES ([id number])[facility]ITALJ[facility] (SWRLAB)[address] [place] [address] Lymphocytes (Bld) [#/Vol] 2.1 10*3/uL Normal 1.0-4.3 [facility] Comment on above: Performed By: #### L [id number] ####Pin Setter: JULI JONES ([id number])[facility]ITALJ[facility] (SWRLAB)[address] [place] [address] [place] Lymphocytes/100 WBC (Bld) 20.7 % Normal 15.0-45.0 [facility] Comment on above: Performed By: #### L [id number] ####Pin Setter: JULI JONES ([id number])[facility]ITALJ[facility] (SWRLAB)[address] [place] [address] MCH (RBC) [Entitic mass] 30.8 pg Normal 26.0-34.0 [facility] Comment on above: Performed By: #### L [id number] ####Pin Setter: JULI JONES ([id number])[facility] [place] [facility] (SWRL[facility])[address] MCHC 31.7 % Normal 30.5-36.0 [facility] Comment on above: Performed By: #### L [id number] ####Pin Setter: JULI JONES ([id number])[facility] [place] [facility] (SWRLAB)[address] [place] [address] MCV (RBC) [Entitic vol] 97.2 fL Normal 77.0-99.0 [facility] Comment on above: Performed By: #### L [id number] ####Pin Setter: JULI JONES ([id number])[facility] (SWRL[facility])[address] [place] [address] Monocytes (Bld) [#/Vol] 1.1 10*3/uL High 0.0-0.9 [facility] Comment on above: Performed By: #### L [id number] ####Pin Setter: JULI JONES ([id number])[facility]ITALJ[facility] (SWRLAB)[address] [place] [address] [place] Monocytes/100 WBC (Bld) 10.8 % Normal 5.0-13.0 [facility] Comment on above: Performed By: #### L [id number] ####Pin Setter: JULI JONES ([id number])[facility]ITALJ[facility] [place] (SWRL[facility])[address] [place] [address] NEUTROPHILS ABSOLUTE 6.7 10*3/uL Normal 1.8-7.5 [facility] Comment on above: Performed By: #### L [id number] ####Pin Setter: JULI JONES ([id number])[facility] [place] [facility] ([facility]RL[facility])[address] [place] [address] Neutrophils/100 WBC (Bld) 67.0 % Normal 38.0-82.0 [facility] Comment on above: Performed By: #### L [id number] ####Pin Setter: JULI JONES ([id number])[facility] [place] ([facility]RL[facility])[address] [place] [address] NRBC 0.0 /100 WBCs Normal 0.0-2.0 [facility] Comment on above: Performed By: #### L [id number] ####Pin Setter: JULI JONES ([id number])[place] [facility] ([facility])[address] [place] [address] Platelet mean volume (Bld) [Entitic vol] 9.2 fL Normal 9.0-12.7 [facility] Comment on above: Result Comment: MPV is a calculated measurement using platelet volume ratio Performed By: #### L [id number] ####Pin Setter: JULI JONES ([id number])[facility]ITALJ[facility] ([facility])[address] [place] [address] [place] Platelets (Bld) [#/Vol] 186 10*3/uL Normal 140-440 [facility] Comment on above: Performed By: #### L [id number] ####Pin Setter: JULI JONES ([id number])[facility]ITALJ[facility] ([facility])[address] [place] [address] RBC (Bld) [#/Vol] 2.86 10*6/uL Low 3.80-5.20 [facility] Comment on above: Performed By: #### L [id number] ####Pin Setter: JULI JONES ([id number])[facility]ITALJ[facility] (SWRL[facility])[address] [place] [address] WBC (Bld) [#/Vol] 10.0 10*3/uL Normal 3.6-10.7 [facility] Comment on above: Performed By: #### L [id number] ####Pin Setter: JULI JONES ([id number])[facility]ITALJ[facility] (SWRL[facility])[address] [place] [address] COMPLETE URINALYSISon 11-14- 2024 BACTERIA (#/HPF) IN URINE Many Abnormal Negative [facility] Comment on above: Performed By: #### L [id number] ####Pin Setter: JULI JONES ([id number])[facility] [place] ([facility])[address] BILIRUBIN, TOTAL PRESENCE IN URINE Negative Normal Negative [facility] Comment on above: Performed By: #### L [id number] ####Pin Setter: JULI JONES ([id number])[facility] [place] ([facility]RL[facility])[address] Clarity (U) Cloudy Abnormal Clear [facility] Comment on above: Performed By: #### L [id number] ####Pin Setter: JULI JONES ([id number])[facility] [place] ([facility]RL[facility])[address] [place] [address] Color (U) Light Yellow Normal Lt. Yellow [facility] Comment on above: Performed By: #### L [id number] ####Pin Setter: JULI JONES ([id number])[facility] [place] ([facility]RL[facility])[address] [place] [address] GLUCOSE (MG/DL) IN URINE Normal Normal Normal (<70) [facility] Comment on above: Performed By: #### L [id number] ####Pin Setter: JULI JONES ([id number])[facility] [place] ([facility])[address] [place] [address] [place] HEMOGLOBIN PRESENCE IN URINE Negative Normal Negative [facility] Comment on above: Performed By: #### L [id number] ####Pin Setter: JULI JONES ([id number])[facility] [place] [facility] ([facility])[address] [place] [address] [place] Ketones Ql (U) Negative Normal Negative [facility] Comment on above: Performed By: #### L [id number] ####Pin Setter: JULI JONES ([id number])[facility]ITALJ[facility] [place] ([facility])[address] [place] [address] [place] LEUKOCYTE ESTERASE PRESENCE IN URINE BY TEST STRIP 500 Devang/uL Abnormal Negative [facility] Comment on above: Performed By: #### L [id number] ####Pin Setter: JULI JONES ([id number])[facility]ITALJ[facility] [place] ([facility])[address] NITRITE PRESENCE IN URINE Negative Normal Negative [facility] Comment on above: Performed By: #### L [id number] ####Pin Setter: JULI JONES ([id number])[facility]ITALJohanny [place] (SWRLAB)[address] [place] [address] pH (U) 6.0 [pH] Normal 5.0-8.0 [facility] Comment on above: Performed By: #### L [id number] ####Pin Setter: JULI JONES ([id number])[facility]ITALJ[facility] (SWRL[facility])[address] [place] [address] [place] Protein (U) [Mass/Vol] 30 mg/dL Abnormal Negative [facility] Comment on above: Performed By: #### L [id number] ####Pin Setter: JULI JONES ([id number])[facility]ITALJ[facility] (SWRL[facility])[address] [place] [address] [place] RBC (#/HPF) IN URINE SEDIMENT 0-2 Normal 0-2 [facility] Comment on above: Performed By: #### L [id number] ####Pin Setter: JULI JONES ([id number])[facility]ITALJ[facility] ([facility])[address] [place] [address] [place] Specific gravity (U) [Rel density] 1.005 Normal 1.005-1.03 0 [facility] Comment on above: Performed By: #### L [id number] ####Pin Setter: JULI JONES ([id number])[facility] [place] ([place])[address] Specimen volume (U) 12 mL Normal [facility] Comment on above: Performed By: #### L [id number] ####Pin Setter: JULI JONES ([id number])[facility]ITALJ[facility] [place] ([place])[address] SQUAMOUS EPITHELIAL CELLS (#/HPF) IN URINE SEDIMENT Negative Normal 3-5 [facility] Comment on above: Performed By: #### L [id number] ####Pin Setter: JULI JONES ([id number])[facility]ITALJ[facility] [place] ([place])[address] UROBILINOGEN (MG/DL) IN URINE Normal Normal Normal (0-1) [facility] Comment on above: Performed By: #### L [id number] ####Pin Setter: JULI JONES ([id number])[facility]ITALJ[facility] [place] ([facility]RL[facility])[address] [place] [address] WBC (LEUKOCYTE) (#/HPF) IN URINE SEDIMENT 51-100 Abnormal 0-5 [facility] Comment on above: Performed By: #### L [id number] ####Pin Setter: JULI JONES ([id number])[facility]ITALJohanny [place] (SWRLAB)[address] [place] [address] [address] METABOLIC PANE Nestor 06-28-2024 Albumin [Mass/Vol] 3.6 g/dL Normal 3.5-5.0 [facility] Comment on above: Performed By: #### L AB103, LAB17, PDH175 ####Pin Setter: JULI JONES ([id number])[facility]ITALJ[facility] [place] [facility] ([facility])[address] [place] [address] [place] ALP [Catalytic activity/Vol] 80 U/L Normal 38-126 [facility] Comment on above: Performed By: #### L AB103, LAB17, [id number] ####Pin Setter: JULI JONES ([id number])[place] [facility] ([facility])[address] [place] [address] [place] ALT [Catalytic activity/Vol] 8 U/L Normal 0-34 [facility] Comment on above: Performed By: #### Kesha DAVIS, LAB17, [id number] ####Pin Setter: JULI JONES ([id number])[facility]ITALJ[facility] [place] ([facility])[address] [place] [address] [place] Anion gap [Moles/Vol] 8 mmol/L Normal 3-13 [facility] Comment on above: Performed By: #### Kesha DAVIS, LAB17, [id number] ####Pin Setter: JULI JONES ([id number])[facility]ITALJ[facility] [place] ([facility])[address] [place] [address] [place] AST [Catalytic activity/Vol] 18 U/L Normal 15-46 [facility] Comment on above: Performed By: #### Kesha DAVIS, LAB17, [id number] ####Pin Setter: JULI JONES ([id number])[facility]ITALJ[facility] [place] ([facility])[address] [place] [address] [place] Bilirubin [Mass/Vol] 0.5 mg/dL Normal 0.2-1.3 [facility] Comment on above: Performed By: #### eKsha DAVIS, LAB17, [id number] ####Pin Setter: JULI JONES ([id number])[facility]ITALJ[facility] ([facility])[address] [place] [address] [place] Calcium [Mass/Vol] 8.5 mg/dL Normal 8.4-10.4 [facility] Comment on above: Performed By: #### Kesha DAVIS, LAB17, [id number] ####Pin Setter: JULI JONES ([id number])[facility]ITALJ[facility] ([facility])[address] [place] [address] [place] Chloride [Moles/Vol] 98 mmol/L Normal 98-107 [facility] Comment on above: Performed By: #### Kesha DAVIS, LAB17, [id number] ####Pin Setter: JULI JONES ([id number])[facility]ITALJ[facility] (SWRLAB)[address] [place] [address] [place] CO2 [Moles/Vol] 25 mmol/L Normal 22-30 [facility] Comment on above: Performed By: #### Kesha DAVIS, LAB17, [id number] ####Pin Setter: JULI JONES ([id number])[facility]ITALJohanny [place]OSROSALIE [facility] (SWRLAB)[address] [place] [address] Creatinine [Mass/Vol] 3.23 mg/dL High 0.52-1.04 [facility] Comment on above: Performed By: #### Kesha DAVIS, LAB17, [id number] ####Pin Setter: JULI JONES ([id number])[facility]ITALJ[facility] (SWRLAB)[address] [place] [address] [place] GLOMERULAR FILTRATION RATE ML/MIN/1.73 SQ M.PREDICTED 16.1 mL/min/1.73m*2 Low >60.0 [facility] Comment on above: Result Comment: Calc ulation based on the Chronic Kidney Disease Epidemiology Collaboration (CKD-EPI) equation refit without adjustment for race Performed By: #### Kesha DAVIS, LAB17, [id number] ####Pin Setter: JULI JONES ([id number])[facility]ITALJ[facility]anny [facility] (SWRL[facility])[address] [place] [address] [place] Glucose [Mass/Vol] 105 mg/dL High 70-100 [facility] Comment on above: Performed By: #### Kesha DAVIS, LAB17, [id number] ####Pin Setter: JULI JONES ([id number])[facility]ITALJohanny [facility]ROSALIE [facility] (SWRLAB)[address] [place] [address] [place] Potassium [Moles/Vol] 3.9 mmol/L Normal 3.5-5.1 [facility] Comment on above: Performed By: #### Kesha DAVIS, LAB17, [id number] ####Pin Setter: JULI JONES ([id number])[facility]ITALJohanny [facility] (SWRLAB)[address] Protein [Mass/Vol] 6.9 g/dL Normal 6.3-8.2 [facility] Comment on above: Performed By: #### Kesha AB103, LAB17, [id number] ####Pin Setter: JULI JONES ([id number])[facility]ITALJ[facility]anny [facility] (SWRLAB)[address] Sodium [Moles/Vol] 130 mmol/L Low 135-145 [facility] Comment on above: Performed By: #### Kesha DAVIS, LAB17, [id number] ####Pin Setter: JULI JONES ([id number])[facility]ITALJohanny [facility] (SWRLAB)[address] [place] [address] Urea nitrogen [Mass/Vol] 21 mg/dL High 7-17 [facility] Comment on above: Performed By: #### Kesha AB103, LAB17, [id number] ####Pin Setter: JULI JONES ([id number])[facility]ITALJohanny MORRISAN (SWRLAB)[address] [place] [address] Comprehensive metabolic 1998 panelon 06-28-2024 Albumin [Mass/Vol] 3.6 g/dL 3.5 - 5.0 g/dL [facility] ALP [Catalytic activity/Vol] 80 U/L 38 - 126 U/L [facility] ALT [Catalytic activity/Vol] 8 U/L 0 - 34 U/L [facility] Anion gap [Moles/Vol] 8 mmol/L 3 - 13 mmol/L [facility] AST [Catalytic activity/Vol] 18 U/L 15 - 46 U/L [facility] Bilirubin [Mass/Vol] 0.5 mg/dL 0.2 - 1 .3 mg/dL [facility] Calcium [Mass/Vol] 8.5 mg/dL 8.4 - 10. 4 mg/dL [facility] Chloride [Moles/Vol] 98 mmol/L 98 - 10 7 mmol/L [facility] CO2 [Moles/Vol] 25 mmol/L 22 - 30 mmol/L [facility] Creatinine [Mass/Vol] 3.23 mg/dL High 0.52 - 1.04 mg/dL [facility] GFR/1.73 sq M.predicted (S/P/Bld) [Vol rate/Area] 16.1 mL/min Low - PINF [facility] Comment on above: Calculation based on the Chronic Kidney Disease Epidemiology Collaboration (CKD-EPI) equation refit without adjustment for race Glucose [Mass/Vol] 105 mg/dL High 70 - 100 mg/dL [facility] Interpretation and review of laboratory results Abnormal [facility] Potassium [Moles/Vol] 3.9 mmol/L 3.5 - 5.1 mmol/L [facility] Protein [Mass/Vol] 6.9 g/dL 6.3 - 8.2 g/dL [facility] Sodium [Moles/Vol] 130 mmol/L Low 135 - 145 mmol/L [facility] Urea nitrogen [Mass/Vol] 21 mg/dL High 7 - 17 mg/dL [facility] ECG 12-LEADon 06-28-2024 ECG 12-LEAD IMPRESSION: Junctional rhythm Borderline repolarization abnormality Electronically Signed On 06-28-2024 12:23:29 EST by Sarah Duran Normal [facility] ED Nursing Noteon 06-28-2024 ED Nursing Note Report to IDALIA Mcconnell @ [facility] . Normal [facility] ED Nursing Note Attempted report to Sebastian Riley. Nurse busy. Will call back for report Normal [facility] ED Nursing Note Infante emptied of 900 cc clear yellow urine. Report to [facility] ambulance crew. Pt transferred with clothing, purse and cell phone. Normal [facility] ED Nursing Note Pt given kathy kun and macaroni and cheese meal. 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 Asking for water, for her cell phone, for extra blankets, to change the TV channel. Call light in reach, bedside table in reach, pt's cell phone on bedside table. Normal [facility] ED Nursing Note Pt unable to urinate despite being on bedpan several times. States she wants a pure wick- advised pt we do not place those. Pt asking for infante catheter. Normal [facility] ED Nursing Note Attempted IV x2 with out success. Paramedics also tried IV without success. Labs obtained using butterfly needle. Dr. Duran notified. Normal [facility] ED Nursing Note Normal [facility] ED Provider Noteon ED Provider Note Normal [facility] Laboratory - Chemistry and C hemistry - challengeon 06-28-2024 Glucose [Mass/Vol] 164 mg/dL High 70 - 100 mg/dL [facility] Ammonia (P) [Moles/Vol] 12 umol/L 9 - 30 umol/L [facility] Troponin I.cardiac [Mass/Vol] ng/mL NINF - 0.034 ng/mL [facility] Magnesium [Mass/Vol] 2.2 mg/dL 1.6 - 2 .3 mg/dL [facility] Laboratory - Microbiology an d Antimicrobial susceptibilityon 06-28-2024 FLUAV RNA PAULINA+probe Ql (Resp) Not detected Not Detected [facility] FLUBV RNA PAULINA+probe Ql (Resp) Not detected Not Detected [facility] RSV RNA PAULINA+probe Ql (Resp) Not detected Not Detected [facility] SARS-CoV-2 (COVID-19) RNA PAULINA+probe Ql (Resp) Not detected Not Detected [facility] SARS-CoV-2 (COVID-19) RNA PAULINA+probe Ql (Unsp spec) Methodology: real-time, RT-PCR The SARS-CoV-2, Flu A/B, and RSV Combo assay is intended for in vitro diagnostic use under the FDA Emergency Use Authorization (EUA). This test has not been FDA cleared or approved. In compliance with this authorization, please visit www.fda.gov/media/415184/do wnload or www.fda.gov/media/945087/do wnload to access the applicable information sheets. [facility] MAGNESIUMon 06-28-2024 Magnesium [Mass/Vol] 2.2 mg/dL Normal 1.6-2.3 [facility] Comment on above: Performed By: #### L [id number], [id number], [id number] ####Pin Setter: JULI JONES ([id number])[facility] ([facility])[address] [place] [address] Magnesium [Mass/Vol]on 06-28 Interpretation and review of laboratory results Normal [facility] No Panel Informationon 06-28 Interpretation and review of laboratory results Abnormal [facility] Performed by: [facility], [address] [place] [address] [place] [address] CLIA ID: [id number] [facility] Interpretation and review of laboratory results Normal [facility] P English 0 degrees [facility] CA Interval 0 ms [facility] QRS English 21 degrees [facility] QRSD Interval 107 ms [facility] QT Interval 423 ms [facility] QTC Interval 430 ms [facility] T Wave English 0 degrees [facility] Junctional rhythm Borderline repolarization abnormality Electronically Signed On 06-28-2024 12:23:29 EST by Sarah Duran CV Sarah Aguilar MD - 06/28/2024 IMPRESSION: Junctional rhythm Borderline repolarization abnormality Electronically Signed On 06-28-2024 12:23:29 EST by Sarah Duran [facility] SARS-COV-2, FLU A/B, AND RSV COMBOon 06-28-2024 SARS-CoV-2 (COVID-19) RNA PAULINA+probe Ql (Unsp spec) Normal [facility] Comment on above: Performed By: #### L [id number] ####Pin Setter: JULI JONES ([id number])[facility] [employer] (SWRLAB)[address] [place] [address] SARS-CoV-2, Flu A/B, and RSV Comboon 06-28-2024 Interpretation and review of laboratory results Normal [facility] TROPONIN Ion 06-28-2024 Troponin I.cardiac [Mass/Vol] ng/mL Normal <0.034 [facility] Comment on above: Result Comment: HARRIET R COMMENTS:Patients with high levels of Biotin oral intake (ie >5 mg/day) may have falsely decreased Troponin levels. Performed By: #### L AB103, LAB17, [id number] ####Pin Setter: JULI JONES ([id number])[facility] [employer] Group[employer] (SWRLAB)[address] [place] [address] Troponin I.cardiac [Mass/Vol ]on 06-28-2024 Interpretation and review of laboratory results Normal [facility] Patients with high l evels of Biotin oral intake (ie >5 mg/day) may have falsely decreased Troponin levels. [facility] URINE CULTUREon 06-28-2024 Bacteria identified Cx Nom (U) Normal [facility] Comment on above: Performed By: #### L [id number] ####Pin Setter: JULI JONES ([id number])[facility] (SACLAB)[address] [place] [address] Urinalysis complete panel (U )Ordered By: Gabriela Acosta on 06-28-2024 Bacteria LM.HPF (Urine sed) [#/Area] Many Abnormal Negative /HPF [facility] Bilirubin Ql (U) Negative Negative mg/dL [facility] Clarity (U) Cloudy Abnormal Clear [facility] Color (U) Light Yellow Lt. Yellow [facility] Epithelial cells.squamous LM.HPF (Urine sed) [#/Area] Negative [facility] Glucose Ql (U) Normal Normal (<70) mg/dL [facility] Hemoglobin Ql (U) Negative Negative mg/dL [facility] Interpretation and review of laboratory results Abnormal [facility] Ketones (U) [Mass/Vol] Negative Negat jayne mg/dL [facility] Leukocyte esterase Test strip Ql (U) 500 Abnormal Negative Devang/uL [facility] Nitrite Ql (U) Negative Negative [facility] pH (U) 6.0 [pH] 5.0 - 8.0 pH [facility] Protein (U) [Mass/Vol] 30 mg/dL Abnormal Negative [facility] RBC LM.HPF (Urine sed) [#/Area] 0-2 [facility] Specific gravity (U) [Rel density] 1.005 1.005 - 1.030 [facility] Urobilinogen (U) [Mass/Vol] Normal Normal (0-1) mg/dL [facility] Volume, Urine 12 mL [facility] WBC LM.HPF (Urine sed) [#/Area] 51-100 Abnormal [facility] Vital signson 06-28-2024 Heart rate 62 /min bpm [facility] XR Chest Single viewon 06-28 FINDINGS AND IMPRESS ION: SUPPORT DEVICES: None OSSEOUS STRUCTURES: Unremarkable. HEART AND MEDIASTINUM: The cardiomediastinal silhouette appears unchanged from the prior exam. LUNGS AND PLEURA: The lungs are clear. No sizable pleural effusion. Report Dictated on Electronically Signed By: Tyler Guzman MD Electronically Signed Date/Time: 06/28/2024 12:35 PM [facility] Patient Name: JESSY WEN : 1965 Exam Date/Time: 06/28/2024 12:14 Procedure: XR CHEST 1 VIEW Ordering Provider: DURAN JONATHAN Reason For Exam: Feeling unwell CHEST CLINICAL INDICATION: Malaise TECHNIQUE: AP portable chest COMPARISON: 09/04/2023 [facility] Tyler Guzman MD - 06/28/2024 Patient Name: JESSY MCKEON : 1965 Exam Date/Time: 06/28/2024 12:14 Procedure: XR CHEST 1 VIEW Ordering Provider: DURAN JONATHAN Reason For Exam: Feeling unwell CHEST CLINICAL INDICATION: Malaise TECHNIQUE: AP portable chest COMPARISON: 09/04/2023 IMPRESSION: FINDINGS AND IMPRESSION: SUPPORT DEVICES: None OSSEOUS STRUCTURES: Unremarkable. HEART AND MEDIASTINUM: The cardiomediastinal silhouette appears unchanged from the prior exam. LUNGS AND PLEURA: The lungs are clear. No sizable pleural effusion. Report Dictated on Electronically Signed By: Tyler Guzman MD Electronically Signed Date/Time: 06/28/2024 12:35 PM [facility] Radiology Study observation (narrative) [facility] XR Chest Single viewOrdered By: Tyler Guzman on 06-28-2024 [facility] [employer] Work Phone: Progress Noteon 06-18-2024 Progress Note Normal [facility] Progress Noteon 06-14-2024 Progress Note Normal [facility] 36on 05-17-2024 36 Phone call to patien t. No answer, mailbox full. Normal [facility] 36 Normal [facility] 36on 05-15-2024 36 Phone call to number given. Female that answered states patient is at home now. Does not live there anymore. Called home number. No answer, voice mailbox is full. Normal [facility] 36on 05-11-2024 36 Normal [facility] 36on 04-24-2024 36 Jillian from [facility] Krysta is faxing a letter of Medical necessity to our office and would like the signed return fax sent to [phone]. Normal [facility] 25-hydroxyvitamin D3 [Mass/V ol]on 04-17-2024 Interpretation and review of laboratory results Abnormal [facility] Therapy is based on measurement of Total 25-OHD with the following classification levels: Less than 20 ng/mL: Indicative of Vit D deficiency 20-30 ng/mL: Suggests Vit D insufficiency Optimal: Greater than or equal to 30 ng/mL Test performed by fuseSPORT Competitive Immunoassay, measuring Total Vitamin D, not individual fractions. [facility] CREATININE, URINE, RANDOMon 04-17-2024 CREATININE, URINE 16.2 mg/dL Normal No Range [facility] Comment on above: Performed By: #### L [id number], [id number] ####Pin Setter: JULI JONES ([id number])[facility] ROS[facility]IE [facility] ([facility])[address] [place] [address] Creatinine (U) [Mass/Vol]on 04-17-2024 CREATININE, URINE 16.2 mg/dL No Range [facility] FERRITINon 04-17-2024 Ferritin [Mass/Vol] 75 ng/mL Normal 11-264 [facility] Comment on above: Performed By: #### L AB68, LAB19 ####Pin Setter: JULI JONES ([id number])[facility])[address] [place] [address] Ferritinon 04-17-2024 Ferritin [Mass/Vol] 75 ng/mL 11 - 264 ng/mL [facility] Ferritin [Mass/Vol]on 2023 Interpretation and review of laboratory results Normal [facility] HEMOGLOBIN AND HEMATOCRIT, B LOODon 04-17-2024 Hematocrit (Bld) [Volume fraction] 30.9 % Low 35.0-47.0 [facility] Comment on above: Performed By: #### L [id number] ####Pin Setter: JULI JONES ([id number])[facility] WIGGINS [facility] (SWRLAB)[address] [place] [address] Hemoglobin (Bld) [Mass/Vol] 10.4 g/dL Low 11.7-16.0 [facility] Comment on above: Performed By: #### L AB753 ####Pin Setter: JULI JONES ([id number])[facility] ROSALIE [employer] (SWRLAB)[address] [place] [address] [place] Hemoglobin (Bld) [Mass/Vol]o n 04-17-2024 Hematocrit (Bld) [Volume fraction] 30.9 % Low 35.0 - 47.0 % [facility] Interpretation and review of laboratory results Abnormal [facility] Hemoglobin and hematocrit, b loodon 04-17-2024 Hemoglobin (Bld) [Mass/Vol] 10.4 g/dL Low 11.7 - 16.0 g/dL [facility] IRON AND TIBCon 04-17-2024 IRON BINDING CAPACITY 244 ug/dL Low 261-497 [facility] Comment on above: Performed By: #### L [id number] ####Pin Setter: JULI JONES ([id number])[facility]ITALJ[facility] WIGGINS [facility] (SWRLAB)[address] [place] [address] IRON SATURATION 22 % Normal 15-50 [facility] Comment on above: Performed By: #### L [id number] ####Pin Setter: JULI JONES ([id number])[facility] ROSALIE [employer] (SWRLAB)[address] [place] [address] IRON, TOTAL 53 ug/dL Normal 37-170 [facility] Comment on above: Performed By: #### L [id number] ####Pin Setter: JULI JONES ([id number])[facility] [employer] (SWRLAB)[address] [place] [address] [place] Iron and Iron binding capaci ty panelon 04-17-2024 Interpretation and review of laboratory results Abnormal [facility] Iron [Mass/Vol] 53 ug/dL 37 - 170 ug/dL [facility] Iron binding capacity [Mass/Vol] 244 ug/dL Low 261 - 497 ug/dL [facility] Iron saturation [Mass fraction] 22 % 15 - 50 % [facility] No Panel Informationon 04-17 [facility] PROTEIN, URINE, RANDOMon Protein (U) [Mass/Vol] 71 mg/dL High 0-12 Del Cid [facility] Comment on above: Performed By: #### L AB439, [id number] ####Pin Setter: JULI JONES ([id number])[facility]ITALJohanny DELVALLETMAN (SWRLAB)[address] [place] [address] [place] PTH INTACTon 04-17-2024 PTH, INTACT 161.6 pg/mL High 7.5-53.5 [facility] Comment on above: Performed By: #### L AB535, [id number] ####Pin Setter: BRENDA JEAN ([id number])[facility] OSVALDO ([facility])[address] [place] [address] PTH, intacton 04-17-2024 Parathyrin.intact [Mass/Vol] 161.6 pg/mL High 7.5 - 53.5 pg/mL [facility] Parathyrin.intact [Mass/Vol] on 04-17-2024 Interpretation and review of laboratory results Abnormal [facility] Protein, urine, randomon Interpretation and review of laboratory results Abnormal [facility] Protein (U) [Mass/Vol] 71 mg/dL High 0 - 1 2 mg/dL [facility] RENAL FUNCTION PANELon 04-17 Albumin [Mass/Vol] 3.8 g/dL Normal 3.5-5.0 [facility] Comment on above: Performed By: #### L AB68, LAB19 ####Pin Setter: JULI JONES ([id number])[facility] (SWRLAB)[address] [place] [address] [place] Anion gap [Moles/Vol] 7 mmol/L Normal 3-13 [facility] Comment on above: Performed By: #### L AB68, LAB19 ####Pin Setter: JULI JONES ([id number])[facility]ITALJ[facility] WIGG[facility] (SWRLAB)[address] [place] [address] [place] Calcium [Mass/Vol] 9.1 mg/dL Normal 8.4-10.4 [facility] Comment on above: Performed By: #### L AB68, LAB19 ####Pin Setter: JULI JONES ([id number])[facility]ITALJ[facility]anny MATOSROSALIE R[facility]AN (SWRLAB)[address] [place] [address] [place] Chloride [Moles/Vol] 99 mmol/L Normal 98-107 [facility] Comment on above: Performed By: #### L AB68, LAB19 ####Pin Setter: JULI JONES ([id number])[facility]ITALJ[facility] WIGG[facility] (SWRLAB)[address] [place] [address] [place] CO2 [Moles/Vol] 25 mmol/L Normal 22-30 [facility] Comment on above: Performed By: #### L AB68, LAB19 ####Pin Setter: JULI JONES ([id number])[facility]ITALJ[facility] WIGG[facility] (SWRLAB)[address] [place] [address] [place] Creatinine [Mass/Vol] 2.45 mg/dL High 0.52-1.04 [facility] Comment on above: Performed By: #### L AB68, LAB19 ####Pin Setter: JULI JONES ([id number])[facility]ITALJ[facility]anny MATOSROSALIE [facility] (SWRLAB)[address] [place] [address] [place] GLOMERULAR FILTRATION RATE ML/MIN/1.73 SQ M.PREDICTED 22.5 mL/min/1.73m*2 Low >60.0 [facility] Comment on above: Result Comment: Calc ulation based on the Chronic Kidney Disease Epidemiology Collaboration (CKD-EPI) equation refit without adjustment for race Performed By: #### L AB68, LAB19 ####Pin Setter: JULI JONES ([id number])[facility]IGG[facility] (SWRLAB)[address] [place] [address] [place] Glucose [Mass/Vol] 113 mg/dL High 70-100 [facility] Comment on above: Performed By: #### L JACEK, LAB19 ####Pin Setter: JULI JONES ([id number])[facility]ITALJ[facility] WIGG[facility] (SWRLAB)[address] Phosphate [Mass/Vol] 3.8 mg/dL Normal 2.5-4.5 [facility] Comment on above: Performed By: #### L JACEK, LAB19 ####Pin Setter: JULI JONES ([id number])[facility]ITALJ[facility] WIGG[facility] (SWRLAB)[address] [place] [address] [place] Potassium [Moles/Vol] 3.9 mmol/L Normal 3.5-5.1 [facility] Comment on above: Performed By: #### L JACEK, LAB19 ####Pin Setter: JULI JONES ([id number])[facility]ITALJ[facility] WIGG[facility] (SWRLAB)[address] [place] [address] [place] Sodium [Moles/Vol] 131 mmol/L Low 135-145 [facility] Comment on above: Performed By: #### L ABFei, LAB19 ####Pin Setter: JULI JONES ([id number])[facility]ITALJ[facility] WIGG[facility] (SWRLAB)[address] [place] [address] [place] Urea nitrogen [Mass/Vol] 16 mg/dL Normal 7-17 [facility] Comment on above: Performed By: #### L AB68, LAB19 ####Pin Setter: JULI JONES ([id number])[facility]ITALJ[facility]anny MATOSROSALIE R[facility]AN (SWRLAB)[address] Renal function 2000 panelon 04-17-2024 Albumin [Mass/Vol] 3.8 g/dL 3.5 - 5.0 g/dL [facility] Anion gap [Moles/Vol] 7 mmol/L 3 - 13 mmol/L [facility] Calcium [Mass/Vol] 9.1 mg/dL 8.4 - 10. 4 mg/dL [facility] Chloride [Moles/Vol] 99 mmol/L 98 - 10 7 mmol/L [facility] CO2 [Moles/Vol] 25 mmol/L 22 - 30 mmol/L [facility] Creatinine [Mass/Vol] 2.45 mg/dL High 0.52 - 1.04 mg/dL [facility] GFR/1.73 sq M.predicted (S/P/Bld) [Vol rate/Area] 22.5 mL/min Low - PINF [facility] Comment on above: Calculation based on the Chronic Kidney Disease Epidemiology Collaboration (CKD-EPI) equation refit without adjustment for race Glucose [Mass/Vol] 113 mg/dL High 70 - 100 mg/dL [facility] Interpretation and review of laboratory results Abnormal [facility] Phosphate [Mass/Vol] 3.8 mg/dL 2.5 - 4 .5 mg/dL [facility] Potassium [Moles/Vol] 3.9 mmol/L 3.5 - 5.1 mmol/L [facility] Sodium [Moles/Vol] 131 mmol/L Low 135 - 145 mmol/L [facility] Urea nitrogen [Mass/Vol] 16 mg/dL 7 - 17 mg/dL [facility] VITAMIN D DEFICIENCY SCREENI NG (VIT D 25)on 04-17-2024 VIT D 25-OH, TOTAL 24 ng/mL Low 30-100 [facility] Comment on above: Result Comment: HARRIET [place] COMMENTS:Therapy is based on measurement of Total 25-OHD with the following classification levels:Less than 20 ng/mL: Indicative of Vit D [id number] ng/mL: Suggests Vit D insufficiencyOptimal: Greater than or equal to 30 ng/mLTest performed by fuseSPORT Competitive Immunoassay, measuring Total Vitamin D, not individual fractions. Performed By: #### L AB535, [id number] ####Pin Setter: BRENDA JEAN ([id number])[facility] ([facility])[address] [place] [address] Vitamin D Deficiency Screeni ng (Vit D 25)on 04-17-2024 25-hydroxyvitamin D3 [Mass/Vol] 24 ng/mL Low 30 - 100 ng/mL [facility] [employer] CNCOon 12-01-2023 CNCO Letter Text Normal [facility] Basic metabolic 1998 panelon 09-04-2023 Anion gap [Moles/Vol] 7 mmol/L 3 - 13 mmol/L [facility] Calcium [Mass/Vol] 8.5 mg/dL 8.4 - 10. 4 mg/dL [facility] Chloride [Moles/Vol] 98 mmol/L 98 - 10 7 mmol/L [facility] CO2 [Moles/Vol] 25 mmol/L 22 - 30 mmol/L [facility] Creatinine [Mass/Vol] 2.23 mg/dL High 0.52 - 1.04 mg/dL [facility] GFR/1.73 sq M.predicted MDRD (S/P/Bld) [Vol rate/Area] 25.3 mL/min/{1.73_m2} Low - PINF [facility] Comment on above: Calculation based on the Chronic Kidney Disease Epidemiology Collaboration (CKD-EPI) equation refit without adjustment for race Glucose [Mass/Vol] 91 mg/dL 70 - 100 mg/dL [facility] Interpretation and review of laboratory results Abnormal [facility] Potassium [Moles/Vol] 4.0 mmol/L 3.5 - 5.1 mmol/L [facility] Sodium [Moles/Vol] 130 mmol/L Low 135 - 145 mmol/L [facility] Urea nitrogen [Mass/Vol] 19 mg/dL High 7 - 17 mg/dL [facility] CBC W Auto Differential pane l (Bld)Ordered By: Mayito Daily on 09-04-2023 Basophils (Bld) [#/Vol] 0.0 10*3/uL 0.0 - 0.2 10*3/uL [facility] Basophils/100 WBC (Bld) 0.4 % 0.0 - 2.0 % [facility] Eosinophils (Bld) [#/Vol] 0.2 10*3/uL 0.0 - 0.5 10*3/uL [facility] Eosinophils/100 WBC (Bld) 3.1 % 1.0 - 6.0 % [facility] Erythrocyte distribution width (RBC) [Ratio] 13.3 % 11.5 - 14.5 % [facility] Hematocrit (Bld) [Volume fraction] 26.7 % Low 35.0 - 47.0 % [facility] Hemoglobin (Bld) [Mass/Vol] 9.1 g/dL Low 11.7 - 16.0 g/dL [facility] Immature granulocytes (Bld) [#/Vol] 0.0 10*3/uL NINF - 0.0 10*3/uL [facility] Immature granulocytes/100 WBC (Bld) 0.4 % High NINF - 0.0 % [facility] Interpretation and review of laboratory results Abnormal [facility] Lymphocytes (Bld) [#/Vol] 2.0 10*3/uL 1.0 - 4.3 10*3/uL [facility] Lymphocytes/100 WBC (Bld) 38.3 % 20.0 - 40.0 % [facility] MCH (RBC) [Entitic mass] 31.3 pg 26.0 - 34.0 pg [facility] MCHC (RBC) [Mass/Vol] 34.1 % 32.0 - 36.0 % [facility] MCV (RBC) [Entitic vol] 91.8 fL 80.0 - 98.0 fL [facility] Monocytes (Bld) [#/Vol] 0.6 10*3/uL 0.0 - 0.8 10*3/uL [facility] Monocytes/100 WBC (Bld) 12.4 % High 2.0 - 10.0 % [facility] Neutrophils (Bld) [#/Vol] 2.3 10*3/uL 1.8 - 7.0 10*3/uL [facility] Neutrophils/100 WBC (Bld) 45.4 % 40.0 - 80.0 % [facility] Platelet mean volume (Bld) [Entitic vol] 9.0 fL 7.4 - 12.4 fL [facility] Comment on above: MPV is a calculated measurement using platelet volume ratio Platelets (Bld) [#/Vol] 225 10*3/uL 140 - 440 10*3/uL [facility] RBC (Bld) [#/Vol] 2.91 10*6/uL Low 3.8 - 5.20 10*6/uL [facility] WBC (Bld) [#/Vol] 5.1 10*3/uL 3.6 - 10.7 10*3/uL [facility] Laboratory - Chemistry and C hemistry - challengeon 09-04-2023 Troponin I.cardiac [Mass/Vol] ng/mL NINF - 0.034 ng/mL [facility] Laboratory - Microbiology an d Antimicrobial susceptibilityon 09-04-2023 FLUAV RNA PAULINA+probe Ql (Resp) Not detected Not Detected [facility] FLUBV RNA PAULINA+probe Ql (Resp) Not detected Not Detected [facility] RSV RNA PAULINA+probe Ql (Resp) Not detected Not Detected [facility] SARS-CoV-2 (COVID-19) RNA PAULINA+probe Ql (Resp) Not detected Not Detected [facility] SARS-CoV-2 (COVID-19) RNA PAULINA+probe Ql (Unsp spec) Methodology: real-time, RT-PCR The SARS-CoV-2, Flu A/B, and RSV Combo assay is intended for in vitro diagnostic use under the FDA Emergency Use Authorization (EUA). This test has not been FDA cleared or approved. In compliance with this authorization, please visit www.fda.gov/media/423367/do wnload or www.fda.gov/media/734346/do wnload to access the applicable information sheets. [facility] No Panel Informationon 09-04 P English 9 degrees [facility] CA Interval 148 ms [facility] QRS English 20 degrees [facility] QRSD Interval 96 ms [facility] QT Interval 408 ms [facility] QTC Interval 391 ms [facility] T Wave English 25 degrees [facility] SINUS RHYTHM Electronically Signed On 09-04-2023 04:08:56 EST by Lilia Mitchell MD - 09/04/2023 IMPRESSION: SINUS RHYTHM Electronically Signed On 09-04-2023 04:08:56 EST by Lilia Beard [facility] SARS-CoV-2, Flu A/B, and RSV Comboon 09-04-2023 Interpretation and review of laboratory results Normal [facility] Troponin I.cardiac [Mass/Vol ]on 09-04-2023 Interpretation and review of laboratory results Normal [facility] Patients with high l evels of Biotin oral intake (ie >5 mg/day) may have falsely decreased Troponin levels. [facility] Urinalysis complete panel (U )on 09-04-2023 Bacteria LM.HPF (Urine sed) [#/Area] Negative Negative /HPF [facility] Bilirubin Ql (U) Negative Negative mg/dL [facility] Clarity (U) Clear Clear [facility] Color (U) Colorless Lt. Yellow [facility] Epithelial cells.squamous LM.HPF (Urine sed) [#/Area] 0-2 [facility] Glucose Ql (U) Normal Normal (<70) mg/dL [facility] Hemoglobin Ql (U) Negative Negative mg/dL [facility] Interpretation and review of laboratory results Abnormal [facility] Ketones (U) [Mass/Vol] Negative Negat jayne mg/dL [facility] Leukocyte esterase Test strip Ql (U) Negative Negative Devagn/uL [facility] Mucus LM.HPF (Urine sed) [#/Area] Few Negative /LPF [facility] Nitrite Ql (U) Negative Negative [facility] pH (U) 7.0 [pH] 5.0 - 8.0 pH [facility] Protein (U) [Mass/Vol] 50 mg/dL Abnormal Negative Del Cid [facility] RBC LM.HPF (Urine sed) [#/Area] 0-2 [facility] Specific gravity (U) [Rel density] 1.003 Low 1.005 - 1.030 [facility] Urobilinogen (U) [Mass/Vol] Normal Normal (0-1) mg/dL [facility] Volume, Urine 12 mL [facility] WBC LM.HPF (Urine sed) [#/Area] 0-2 [facility] Vital signson 09-04-2023 Heart rate 55 /min bpm [facility] XR Chest Single viewon 09-04 No acute abnormality Report Dictated on Electronically Signed By: Dario Torres MD Electronically Signed Date/Time: 09/04/2023 4:21 AM [facility] [email or web address] RADIOLOGY SYSTEM Patient Name: JESSY WEN : 1965 Exam Date/Time: 09/04/2023 04:13 Procedure: XR CHEST 1 VIEW Ordering Provider: BEARD ANIS Reason For Exam: Shortness of breath PORTABLE CHEST CLINICAL INDICATION: Shortness of breath TECHNIQUE: Portable AP COMPARISON: 07/15/2022 FINDINGS: The heart and mediastinum are normal. The lungs are clear. Costophrenic angles are sharp. Dextroscoliosis is noted. There is also arthritic change about the glenohumeral joints. [facility] RADIOLOGY SYSTEM Dario Torres MD - 09/04/2023 [facility] Name: [facility]ESS[facility]ON : 1965 [id number] Exam Date/Time: 09/04/2023 04:13 Procedure: XR CHEST 1 VIEW Ordering Provider: BEARD ANIS Reason For Exam: Shortness of breath PORTABLE CHEST CLINICAL INDICATION: Shortness of breath TECHNIQUE: Portable AP COMPARISON: 07/15/2022 FINDINGS: The heart and mediastinum are normal. The lungs are clear. Costophrenic angles are sharp. Dextroscoliosis is noted. There is also arthritic change about the glenohumeral joints. IMPRESSION: No acute abnormality Report Dictated on Electronically Signed By: Dario Torres MD Electronically Signed Date/Time: 09/04/2023 4:21 AM EST [facility] [employer] Radiology Study observation (narrative) [facility] [employer] XR Chest Single viewOrdered By: Dario Torres on 09-04-2023 [facility] [employer] Work Phone: CBC W Auto Differential pane l (Bld)Ordered By: Estela Whelan on 08-25-2023 Basophils (Bld) [#/Vol] 0.0 10*3/uL 0.0 - 0.2 10*3/uL [employer] Basophils/100 WBC (Bld) 0.2 % 0.0 - 2.0 % [facility] [employer] Eosinophils (Bld) [#/Vol] 0.1 10*3/uL 0.0 - 0.5 10*3/uL [facility] Eosinophils/100 WBC (Bld) 1.6 % 1.0 - 6.0 % [facility] [employer] Erythrocyte distribution width (RBC) [Ratio] 14.5 % 11.5 - 14.5 % [facility] Hematocrit (Bld) [Volume fraction] 30.5 % Low 35.0 - 47.0 % [facility] [employer] Hemoglobin (Bld) [Mass/Vol] 10.0 g/dL Low 11.7 - 16.0 g/dL [facility] [employer] Interpretation and review of laboratory results Abnormal [facility] [employer] Lymphocytes (Bld) [#/Vol] 1.1 10*3/uL 1.0 - 4.3 10*3/uL [facility] Lymphocytes/100 WBC (Bld) 27.2 % 20.0 - 40.0 % [facility] [employer] MCH (RBC) [Entitic mass] 30.3 pg 26.0 - 34.0 pg [facility] [employer] MCHC (RBC) [Mass/Vol] 32.9 % 32.0 - 36.0 % [facility] [employer] MCV (RBC) [Entitic vol] 92.3 fL 80.0 - 98.0 fL [facility] [employer] Monocytes (Bld) [#/Vol] 0.6 10*3/uL 0.0 - 0.8 10*3/uL [facility] Monocytes/100 WBC (Bld) 14.4 % High 2.0 - 10.0 % [facility] [employer] Neutrophils (Bld) [#/Vol] 2.3 10*3/uL 1.8 - 7.0 10*3/uL [facility] Neutrophils/100 WBC (Bld) 56.6 % 40.0 - 80.0 % [facility] [employer] Nucleated RBC/100 WBC (Bld) [Ratio] 0.0 % [facility] [employer] Platelet mean volume (Bld) [Entitic vol] 7.0 fL Low 7.4 - 12.4 fL [facility] [employer] Platelets (Bld) [#/Vol] 191 10*3/uL 140 - 440 10*3/uL [facility] RBC (Bld) [#/Vol] 3.30 10*6/uL Low 3.8 - 5.20 10*6/uL [facility] WBC (Bld) [#/Vol] 4.1 10*3/uL 3.6 - 10.7 10*3/uL [facility] CT Head WO contraston 2023 No acute findings. Report Dictated on Electronically Signed By: Grant Dale MD Electronically Signed Date/Time: 08/25/2023 5:48 PM [facility] Patient Name: JESSY WEN : 1965 Exam Date/Time: 08/25/2023 17:41 Procedure: CT HEAD WO IV CONTRAST Ordering Provider: BRIGGS BETHANY Reason For Exam: ams CT head without contrast History: mental status change Protocol: 3 mm axial images without IV contrast Dose reduction was employed with automated exposure control. There is no evidence of intracranial hemorrhage, extra-axial fluid collection, hydrocephalus, or acute infarct. No evidence of a mass of mass affect. The visualized portions of the paranasal sinuses and the mastoid air cells are clear. [facility] Grant Dale MD - 08/25/2023 Patient Name: JESSY MCKEON : 1965 Exam Date/Time: 08/25/2023 17:41 Procedure: CT HEAD WO IV CONTRAST Ordering Provider: BRIGGS BETHANY Reason For Exam: ams CT head without contrast History: mental status change Protocol: 3 mm axial images without IV contrast Dose reduction was employed with automated exposure control. There is no evidence of intracranial hemorrhage, extra-axial fluid collection, hydrocephalus, or acute infarct. No evidence of a mass of mass affect. The visualized portions of the paranasal sinuses and the mastoid air cells are clear. IMPRESSION: No acute findings. Report Dictated on Electronically Signed By: Grant Dale MD Electronically Signed Date/Time: 08/25/2023 5:48 PM EST [facility] [employer] Radiology Study observation (narrative) [facility] CT Head WO contrastOrdered B y: Grant Dale on 08-25-2023 [employer] Work Phone: Comprehensive metabolic 1998 panelon 08-25-2023 Albumin [Mass/Vol] 3.7 g/dL 3.5 - 5.0 g/dL [facility] [employer] ALP [Catalytic activity/Vol] 80 U/L 38 - 126 U/L [facility] [employer] ALT [Catalytic activity/Vol] 7 U/L 0 - 34 U/L [facility] [employer] Anion gap [Moles/Vol] 9 mmol/L 3 - 13 mmol/L [facility] AST [Catalytic activity/Vol] 23 U/L 15 - 46 U/L [facility] Bilirubin [Mass/Vol] 0.4 mg/dL 0.2 - 1 .3 mg/dL [facility] Calcium [Mass/Vol] 8.7 mg/dL 8.4 - 10. 4 mg/dL [facility] Chloride [Moles/Vol] 92 mmol/L Low 98 - 10 7 mmol/L [facility] CO2 [Moles/Vol] 26 mmol/L 22 - 30 mmol/L [facility] Creatinine [Mass/Vol] 2.67 mg/dL High 0.52 - 1.04 mg/dL [facility] GFR/1.73 sq M.predicted MDRD (S/P/Bld) [Vol rate/Area] 20.4 mL/min/{1.73_m2} Low - PINF [facility] Comment on above: Calculation based on the Chronic Kidney Disease Epidemiology Collaboration (CKD-EPI) equation refit without adjustment for race Glucose [Mass/Vol] 105 mg/dL High 70 - 100 mg/dL [facility] Potassium [Moles/Vol] 4.0 mmol/L 3.5 - 5.1 mmol/L [facility] Protein [Mass/Vol] 7.2 g/dL 6.3 - 8.2 g/dL [facility] Sodium [Moles/Vol] 126 mmol/L Low 135 - 145 mmol/L [facility] Urea nitrogen [Mass/Vol] 22 mg/dL High 7 - 17 mg/dL [facility] Hepatitis 1996 panel (S)on 0 08-25-2023 HAV IgM IA Ql Not detected Not Detected [facility] HBV core IgM IA Ql Not detected Not Detected [facility] HBV surface Ag IA Ql Not detected Not Detected [facility] HCV Ab IA Ql Not detected Not Detected [facility] Comment on above: Patients with DETECT ED Hepatitis C Ab results should have a new specimen submitted for supplemental testing with a Hepatitis C Quantitative RNA assay (viral load), if clinically indicated. Interpretation and review of laboratory results Normal [facility] Laboratory - Chemistry and C hemistry - challengeon 08-25-2023 Lipase [Catalytic activity/Vol] 223 U/L 23 - 300 U/L [facility] Laboratory - Drug toxicology on 08-25-2023 Valproate [Mass/Vol] 70 ug/mL 50 - 12 0 ug/mL [facility] Acetaminophen [Mass/Vol] ug/mL Low 10.0 - 30.0 ug/mL [facility] Salicylates [Mass/Vol] mg/dL NINF - 20.0 mg/dL [facility] Laboratory - Microbiology an d Antimicrobial susceptibilityon 08-25-2023 FLUAV RNA PAULINA+probe Ql (Resp) Not detected Not Detected [facility] FLUBV RNA PAULINA+probe Ql (Resp) Not detected Not Detected [facility] RSV RNA PAULINA+probe Ql (Resp) Not detected Not Detected [facility] SARS-CoV-2 (COVID-19) RNA PAULINA+probe Ql (Resp) Not detected Not Detected [facility] Lipase [Catalytic activity/V ol]on 08-25-2023 Interpretation and review of laboratory results Normal [facility] No Panel Informationon 08-25 P English 32 degrees [facility] CA Interval 205 ms [facility] QRS English 2 degrees [facility] QRSD Interval 106 ms [facility] QT Interval 414 ms [facility] QTC Interval 442 ms [facility] T Wave English 2 degrees [facility] Sinus rhythm Borderline prolonged CA interval Borderline T wave abnormalities Electronically Signed On 08-25-2023 18:26:57 EST by Theresa Briggs CV Theresa Ramos M D - 08/25/2023 IMPRESSION: Sinus rhythm Borderline prolonged CA interval Borderline T wave abnormalities Electronically Signed On 08-25-2023 18:26:57 EST by Theresa Briggs [facility] Interpretation and review of laboratory results Normal [facility] Interpretation and review of laboratory results Abnormal [facility] SARS-CoV-2, Flu A/B, and RSV Comboon 08-25-2023 Interpretation and review of laboratory results Normal [facility] Methodology: real-ti me, RT-PCR [facility] Salicylates [Mass/Vol]on Interpretation and review of laboratory results Normal [facility] Urinalysis complete panel (U )Ordered By: Tamara Mahoney on 08-25-2023 Bacteria LM.HPF (Urine sed) [#/Area] Negative Negative /HPF [facility] Bilirubin Ql (U) Negative Negative mg/dL [facility] Clarity (U) Clear Clear [facility] Color (U) Colorless Lt. Yellow [facility] Epithelial cells.squamous LM.HPF (Urine sed) [#/Area] 0-2 [facility] Glucose Ql (U) Normal Normal (<70) mg/dL [facility] Hemoglobin Ql (U) Negative Negative mg/dL [facility] Hyaline casts Auto (Urine sed) [#/Area] Negative Negative /LPF [facility] Interpretation and review of laboratory results Abnormal [facility] Ketones (U) [Mass/Vol] Negative Negat jayne mg/dL [facility] Leukocyte esterase Test strip Ql (U) Negative Negative Devang/uL [facility] Nitrite Ql (U) Negative Negative [facility] pH (U) 6.5 [pH] 5.0 - 8.0 pH [facility] Protein (U) [Mass/Vol] 30 mg/dL Abnormal Negative Del Cid [facility] RBC LM.HPF (Urine sed) [#/Area] Negative [facility] Specific gravity (U) [Rel density] 1.003 Low 1.005 - 1.030 [facility] Urobilinogen (U) [Mass/Vol] Normal Normal (0-1) mg/dL [facility] WBC LM.HPF (Urine sed) [#/Area] Negative [facility] Vital signson 08-25-2023 Heart rate 68 /min bpm [facility] Basic metabolic 1998 panelon 03-23-2023 Anion gap [Moles/Vol] 11 mmol/L 3 - 13 mmol/L [facility] Calcium [Mass/Vol] 8.6 mg/dL 8.4 - 10. 4 mg/dL [facility] Chloride [Moles/Vol] 98 mmol/L 98 - 10 7 mmol/L [facility] CO2 [Moles/Vol] 20 mmol/L Low 22 - 30 mmol/L [facility] Creatinine [Mass/Vol] 2.60 mg/dL High 0.52 - 1.04 mg/dL [facility] GFR/1.73 sq M.predicted MDRD (S/P/Bld) [Vol rate/Area] 21.1 mL/min/{1.73_m2} Low - PINF [facility] Comment on above: Calculation based on the Chronic Kidney Disease Epidemiology Collaboration (CKD-EPI) equation refit without adjustment for race Glucose [Mass/Vol] 92 mg/dL 70 - 100 mg/dL [facility] Interpretation and review of laboratory results Abnormal [facility] Potassium [Moles/Vol] 5.2 mmol/L High 3.5 - 5.1 mmol/L [facility] Sodium [Moles/Vol] 128 mmol/L Low 135 - 145 mmol/L [facility] Urea nitrogen [Mass/Vol] 46 mg/dL High 7 - 17 mg/dL [facility] Slightly Hemolyzed. Interpret POTASSIUM with caution. [facility] Laboratory - Chemistry and C hemistry - challengeon 03-22-2023 Glucose [Mass/Vol] 91 mg/dL 70 - 100 mg/dL [facility] No Panel Informationon 03-22 Interpretation and review of laboratory results Normal [facility] Performed by: [facility], [address] [place] [address] CLIA ID: [id number] [facility] Bacteria identified Cx Nom ( U)Ordered By: Bessie Stout on 03-19-2023 Interpretation and review of laboratory results Abnormal [facility] Laboratory - Microbiology an d Antimicrobial susceptibilityOrdered By: Bessie Stout on 03-19-2023 Bacteria identified Cx Nom (U) >100,000 CFU/mL Klebsiella pneumoniae Abnormal [facility] Bacteria identified Cx Nom (U) 50,000-90,000 CFU/mL Streptococcus anginosus (anginosus group) Abnormal [facility] Comment on above: Susceptibility testi ng performed only upon request for cultures with multiple types of microorganisms below 100,000 CFU/ml. No Panel InformationOrdered By: Shania Alexander on 03-19-2023 P English 7 degrees [facility] CA Interval 163 ms [facility] Work [facility]: QRS English 13 degrees [employer] Work Phone: QRSD Interval 109 ms [employer] Work Phone: QT Interval 432 ms [employer] Work Phone: QTC Interval 398 ms [facility] Work [facility]: T Wave English 31 degrees [employer] Work Phone: [employer] Work Phone: No Panel Informationon 08-05 -2023 Sinus bradycardia Borderline T abnormalities, anterior leads Electronically Signed On 03-19-2023 7:39:33 EDT by Shania Alexander CV Shania tSeele MD - 03/19/2023 IMPRESSION: Sinus bradycardia Borderline T abnormalities, anterior leads Electronically Signed On 03-19-2023 7:39:33 EDT by Shania Alexander [facility] [employer] Vital signsOrdered By: Shania Alexander on 03-19-2023 Heart rate 51 /min bpm [employer] Work Phone: Basic metabolic 1998 panelon 03-18-2023 Anion gap [Moles/Vol] 3 mmol/L 3 - 13 mmol/L [facility] [employer] Calcium [Mass/Vol] 8.2 mg/dL Low 8.4 - 10. 4 mg/dL [facility] [employer] Chloride [Moles/Vol] 108 mmol/L High 98 - 10 7 mmol/L [facility] [employer] CO2 [Moles/Vol] 24 mmol/L 22 - 30 mmol/L [facility] [employer] Creatinine [Mass/Vol] 2.49 mg/dL High 0.52 - 1.04 mg/dL [facility] [employer] GFR/1.73 sq M.predicted MDRD (S/P/Bld) [Vol rate/Area] 22.2 mL/min/{1.73_m2} Low - PINF [facility] Comment on above: Calculation based on the Chronic Kidney Disease Epidemiology Collaboration (CKD-EPI) equation refit without adjustment for race Glucose [Mass/Vol] 79 mg/dL 70 - 100 mg/dL [facility] Interpretation and review of laboratory results Abnormal [facility] [employer] Potassium [Moles/Vol] 5.1 mmol/L 3.5 - 5.1 mmol/L [facility] [employer] Sodium [Moles/Vol] 135 mmol/L 135 - 145 mmol/L [facility] Urea nitrogen [Mass/Vol] 20 mg/dL High 7 - 17 mg/dL [facility] [employer] Slightly Hemolyzed. Interpret K+ with caution. [facility] [employer] CBC panel Auto (Bld)Ordered By: Theresa Lozano on 03-18-2023 Erythrocyte distribution width (RBC) [Ratio] 14.1 % 11.5 - 14.5 % [facility] [employer] Hematocrit (Bld) [Volume fraction] 29.5 % Low 35.0 - 47.0 % [facility] Hemoglobin (Bld) [Mass/Vol] 9.8 g/dL Low 11.7 - 16.0 g/dL [facility] Interpretation and review of laboratory results Abnormal [facility] MCH (RBC) [Entitic mass] 31.8 pg 26.0 - 34.0 pg [facility] MCHC (RBC) [Mass/Vol] 33.3 % 32.0 - 36.0 % [facility] MCV (RBC) [Entitic vol] 95.5 fL 80.0 - 98.0 fL [facility] Platelet mean volume (Bld) [Entitic vol] 8.4 fL 7.4 - 12.4 fL [facility] Platelets (Bld) [#/Vol] 186 10*3/uL 140 - 440 10*3/uL [facility] RBC (Bld) [#/Vol] 3.09 10*6/uL Low 3.8 - 5.20 10*6/uL [facility] WBC (Bld) [#/Vol] 5.0 10*3/uL 3.6 - 10.7 10*3/uL [facility] Laboratory - Chemistry and C hemistry - challengeon 03-18-2023 Ammonia (P) [Moles/Vol] 24 umol/L 9 - 30 umol/L [facility] Laboratory - Drug toxicology on 03-18-2023 lamoTRIgine [Mass/Vol] 13.4 ug/mL 3.0 - 15.0 ug/mL [facility] Comment on above: INTERPRETIVE INFORMA TION: Lamotrigine Therapeutic Range: 3.0-15.0 ug/mL Toxic: Greater than or equal to 20 ug/mL Pharmacokinetics varies widely, particularly with co-medications and/or compromised renal function. Adverse effects may include dizziness, somnolence, nausea and vomiting. Performed By: [employer] [address] [place] [id number] [employer] Service Runner: Sarah Sloan MD, PhD CLIA Number: [id number] No Panel Informationon 03-18 [facility] Interpretation and review of laboratory results Normal [facility] Slightly Hemolyzed. Interpret AMMONIA with caution. [facility] Basic metabolic 1998 panelon 03-17-2023 Anion gap [Moles/Vol] 5 mmol/L 3 - 13 mmol/L [facility] Calcium [Mass/Vol] 8.2 mg/dL Low 8.4 - 10. 4 mg/dL [facility] [employer] Chloride [Moles/Vol] 107 mmol/L 98 - 10 7 mmol/L [facility] CO2 [Moles/Vol] 24 mmol/L 22 - 30 mmol/L [facility] Creatinine [Mass/Vol] 2.83 mg/dL High 0.52 - 1.04 mg/dL [facility] GFR/1.73 sq M.predicted MDRD (S/P/Bld) [Vol rate/Area] 19.0 mL/min/{1.73_m2} Low - PINF [facility] Comment on above: Calculation based on the Chronic Kidney Disease Epidemiology Collaboration (CKD-EPI) equation refit without adjustment for race Glucose [Mass/Vol] 110 mg/dL High 70 - 100 mg/dL [facility] Interpretation and review of laboratory results Abnormal [facility] Potassium [Moles/Vol] 4.3 mmol/L 3.5 - 5.1 mmol/L [facility] Sodium [Moles/Vol] 137 mmol/L 135 - 145 mmol/L [facility] Urea nitrogen [Mass/Vol] 20 mg/dL High 7 - 17 mg/dL [facility] CBC W Auto Differential pane l (Bld)Ordered By: Saray Fragoso on 03-17-2023 Basophils (Bld) [#/Vol] 0.0 10*3/uL 0.0 - 0.2 10*3/uL [facility] Basophils/100 WBC (Bld) 0.3 % 0.0 - 2.0 % [facility] Eosinophils (Bld) [#/Vol] 0.2 10*3/uL 0.0 - 0.5 10*3/uL [facility] Eosinophils/100 WBC (Bld) 4.2 % 1.0 - 6.0 % [facility] Erythrocyte distribution width (RBC) [Ratio] 14.2 % 11.5 - 14.5 % [facility] Hematocrit (Bld) [Volume fraction] 31.8 % Low 35.0 - 47.0 % [facility] Hemoglobin (Bld) [Mass/Vol] 10.2 g/dL Low 11.7 - 16.0 g/dL [facility] Interpretation and review of laboratory results Abnormal [facility] Lymphocytes (Bld) [#/Vol] 2.0 10*3/uL 1.0 - 4.3 10*3/uL [facility] Lymphocytes/100 WBC (Bld) 33.6 % 20.0 - 40.0 % [facility] MCH (RBC) [Entitic mass] 31.2 pg 26.0 - 34.0 pg [facility] MCHC (RBC) [Mass/Vol] 32.0 % 32.0 - 36.0 % [facility] MCV (RBC) [Entitic vol] 97.4 fL 80.0 - 98.0 fL [facility] Monocytes (Bld) [#/Vol] 0.8 10*3/uL 0.0 - 0.8 10*3/uL [facility] Monocytes/100 WBC (Bld) 13.0 % High 2.0 - 10.0 % [facility] Neutrophils (Bld) [#/Vol] 2.9 10*3/uL 1.8 - 7.0 10*3/uL [facility] Neutrophils/100 WBC (Bld) 48.9 % 40.0 - 80.0 % [facility] Nucleated RBC/100 WBC (Bld) [Ratio] 0.2 % [facility] Platelet mean volume (Bld) [Entitic vol] 7.9 fL 7.4 - 12.4 fL [facility] Platelets (Bld) [#/Vol] 167 10*3/uL 140 - 440 10*3/uL [facility] RBC (Bld) [#/Vol] 3.27 10*6/uL Low 3.8 - 5.20 10*6/uL [facility] WBC (Bld) [#/Vol] 5.9 10*3/uL 3.6 - 10.7 10*3/uL [facility] Free T4 [Mass/Vol]on 023 Free T4 Dialysis [Mass/Vol] 1.74 ng/dL 0.78 - 2.19 ng/dL [facility] Interpretation and review of laboratory results Normal [facility] Laboratory - Chemistry and C hemistry - challengeon 03-17-2023 TSH Qn 0.056 m[IU]/L Low [facility] Laboratory - Drug toxicology on 03-17-2023 Valproate [Mass/Vol] 67 ug/mL 50 - 12 0 ug/mL [facility] No Panel Informationon 03-17 Interpretation and review of laboratory results Normal [facility] TSH Qnon 03-17-2023 Interpretation and review of laboratory results Abnormal [facility] CBC W Auto Differential pane l (Bld)on 03-16-2023 Basophils (Bld) [#/Vol] 0.0 10*3/uL 0.0 - 0.2 10*3/uL [facility] Basophils/100 WBC (Bld) 0.3 % 0.0 - 2.0 % [facility] Eosinophils (Bld) [#/Vol] 0.2 10*3/uL 0.0 - 0.5 10*3/uL [facility] Eosinophils/100 WBC (Bld) 3.7 % 1.0 - 6.0 % [facility] Erythrocyte distribution width (RBC) [Ratio] 13.1 % 11.5 - 14.5 % [facility] Hematocrit (Bld) [Volume fraction] 33.2 % Low 35.0 - 47.0 % [facility] Hemoglobin (Bld) [Mass/Vol] 10.8 g/dL Low 11.7 - 16.0 g/dL [facility] Immature granulocytes (Bld) [#/Vol] 0.0 10*3/uL NINF - 0.0 10*3/uL [facility] Immature granulocytes/100 WBC (Bld) 0.3 % High NINF - 0.0 % [facility] Interpretation and review of laboratory results Abnormal [facility] Lymphocytes (Bld) [#/Vol] 1.9 10*3/uL 1.0 - 4.3 10*3/uL [facility] Lymphocytes/100 WBC (Bld) 31.0 % 20.0 - 40.0 % [facility] MCH (RBC) [Entitic mass] 31.4 pg 26.0 - 34.0 pg [facility] MCHC (RBC) [Mass/Vol] 32.5 % 32.0 - 36.0 % [facility] MCV (RBC) [Entitic vol] 96.5 fL 80.0 - 98.0 fL [facility] Monocytes (Bld) [#/Vol] 0.7 10*3/uL 0.0 - 0.8 10*3/uL [facility] Monocytes/100 WBC (Bld) 10.5 % High 2.0 - 10.0 % [facility] [employer] Neutrophils (Bld) [#/Vol] 3.4 10*3/uL 1.8 - 7.0 10*3/uL [facility] [employer] Neutrophils/100 WBC (Bld) 54.2 % 40.0 - 80.0 % [facility] [employer] Platelet mean volume (Bld) [Entitic vol] 9.4 fL 7.4 - 12.4 fL [facility] [employer] Comment on above: MPV is a calculated measurement using platelet volume ratio Platelets (Bld) [#/Vol] 181 10*3/uL 140 - 440 10*3/uL [facility] [employer] RBC (Bld) [#/Vol] 3.44 10*6/uL Low 3.8 - 5.20 10*6/uL [facility] WBC (Bld) [#/Vol] 6.3 10*3/uL 3.6 - 10.7 10*3/uL [facility] CT Head WO contraston 2022 No acute findings. Report Dictated on Electronically Signed By: Grant Dale MD Electronically Signed Date/Time: 03/16/2023 7:14 PM EDT [employer] Patient Name: JESSY WEN : 1965 Exam Date/Time: 03/16/2023 19:09 Procedure: CT HEAD WO IV CONTRAST Ordering Provider: MARQUEZ VIJAY Reason For Exam: Headache, new or worsening (Age >= 50y) CT head without contrast History: Headache Protocol: 3 mm axial images without IV contrast Dose reduction was employed with automated exposure control. There is no evidence of intracranial hemorrhage, extra-axial fluid collection, hydrocephalus, or acute infarct. No evidence of a mass of mass affect. The visualized portions of the paranasal sinuses and the mastoid air cells are clear. [facility] [place] [facility]OLOG[facility] Grant Dale MD - 03/16/2023 Patient Name: JESSY MCKEON : 1965 Exam Date/Time: 03/16/2023 19:09 Procedure: CT HEAD WO IV CONTRAST Ordering Provider: MARQUEZ VIJAY Reason For Exam: Headache, new or worsening (Age >= 50y) CT head without contrast History: Headache Protocol: 3 mm axial images without IV contrast Dose reduction was employed with automated exposure control. There is no evidence of intracranial hemorrhage, extra-axial fluid collection, hydrocephalus, or acute infarct. No evidence of a mass of mass affect. The visualized portions of the paranasal sinuses and the mastoid air cells are clear. IMPRESSION: No acute findings. Report Dictated on Electronically Signed By: Grant Dale MD Electronically Signed Date/Time: 03/16/2023 7:14 PM EDT [facility] Radiology Study observation (narrative) [facility] CT Head WO contrastOrdered B y: Grant Dale on 03-16-2023 [facility] Work Phone: Comprehensive metabolic 1998 panelon 03-16-2023 Albumin [Mass/Vol] 3.7 g/dL 3.5 - 5.0 g/dL [facility] ALP [Catalytic activity/Vol] 74 U/L 38 - 126 U/L [facility] ALT [Catalytic activity/Vol] 15 U/L 0 - 34 U/L [facility] Anion gap [Moles/Vol] 8 mmol/L 3 - 13 mmol/L [facility] AST [Catalytic activity/Vol] 26 U/L 15 - 46 U/L [facility] Bilirubin [Mass/Vol] 0.3 mg/dL 0.2 - 1 .3 mg/dL [facility] Calcium [Mass/Vol] 8.7 mg/dL 8.4 - 10. 4 mg/dL [facility] Chloride [Moles/Vol] 101 mmol/L 98 - 10 7 mmol/L [facility] CO2 [Moles/Vol] 24 mmol/L 22 - 30 mmol/L [facility] Creatinine [Mass/Vol] 3.07 mg/dL High 0.52 - 1.04 mg/dL [facility] GFR/1.73 sq M.predicted MDRD (S/P/Bld) [Vol rate/Area] 17.2 mL/min/{1.73_m2} Low - PINF [facility] Comment on above: Calculation based on the Chronic Kidney Disease Epidemiology Collaboration (CKD-EPI) equation refit without adjustment for race Glucose [Mass/Vol] 107 mg/dL High 70 - 100 mg/dL [facility] Interpretation and review of laboratory results Abnormal [facility] Potassium [Moles/Vol] 4.7 mmol/L 3.5 - 5.1 mmol/L [facility] Protein [Mass/Vol] 7.2 g/dL 6.3 - 8.2 g/dL [facility] Sodium [Moles/Vol] 134 mmol/L Low 135 - 145 mmol/L [facility] Urea nitrogen [Mass/Vol] 22 mg/dL High 7 - 17 mg/dL [facility] Laboratory - Chemistry and C hemistry - challengeon 03-16-2023 Troponin I.cardiac [Mass/Vol] ng/mL 0.000 - 0.034 ng/mL [facility] Lactate [Moles/Vol] 2.0 mmol/L 0.7 - 2. 0 mmol/L [facility] Laboratory - Drug toxicology on 03-16-2023 Amphetamines Screen method >1000 ng/mL Ql (U) Negative [facility] Barbiturates Screen method >200 ng/mL Ql (U) Negative [facility] Benzodiazepines Ql (U) Negative [facility] Methadone Screen Ql (U) Negative [facility] Opiates Screen Ql (U) Negative [facility] oxyCODONE Ql (U) Negative [facility] Phencyclidine Ql (U) Negative [facility] No Panel Informationon 03-16 Interpretation and review of laboratory results Normal [facility] COCAINE METAB. SCREEN Negative [facility] The expected value f or all of the drugs listed above is Negative. The following drugs or drug groups have been screened for by Immunoassay at the following thresholds: Amphetamine class (1000 ng/mL) Barbiturates (200 ng/mL) Benzodiazepines (200 ng/mL) Cocaine (300 ng/mL) Methadone (300 ng/mL) Opiates (300 ng/mL) Oxycodone (100 ng/mL) PCP (25 ng/mL) NOTE: These results are for medical treatment only. Analysis performed using non-forensic procedures. POSITIVE results are NOT confirmed by a more specific alternative method unless requested. If confirmation is needed, request confirmation under separate order. [facility] P English -13 degrees [facility] CA Interval 174 ms [facility] QRS English -2 degrees [facility] QRSD Interval 103 ms [facility] QT Interval 394 ms [facility] QTC Interval 436 ms [facility] T Wave English 47 degrees [facility] Cameron Marquez M D - 03/16/2023 IMPRESSION: Sinus rhythm Rate 74 Abnormal R-wave progression, early transition Probable LVH with secondary repol abnrm Compared to ECG 12/23/2021 08:16:34 No significant changes Electronically Signed On 03-16-2023 18:40:49 EDT by Cameron Marquez [facility] Troponin I.cardiac [Mass/Vol ]on 03-16-2023 Interpretation and review of laboratory results Normal [facility] Patients with high l evels of Biotin oral intake (ie >5 mg/day) may have falsely decreased Troponin levels. [facility] Urinalysis complete panel (U )Ordered By: Mayito Daily on 03-16-2023 Amorphous Urates, Urine Few Abnormal Negative /HPF [facility] Bacteria LM.HPF (Urine sed) [#/Area] Few Abnormal Negative /HPF [facility] Bilirubin Ql (U) Negative Negative mg/dL [facility] Clarity (U) Clear Clear [facility] Color (U) Light Yellow Lt. Yellow [facility] Epithelial cells.squamous LM.HPF (Urine sed) [#/Area] 3-5 [facility] Glucose Ql (U) Normal Normal (<70) mg/dL [facility] Hemoglobin Ql (U) Negative Negative mg/dL [facility] Interpretation and review of laboratory results Abnormal [facility] Ketones (U) [Mass/Vol] Negative Negat jayne mg/dL [facility] Leukocyte esterase Test strip Ql (U) 500 Abnormal Negative Devang/uL [facility] Mucus LM.HPF (Urine sed) [#/Area] Few Negative /LPF [facility] Nitrite Ql (U) Negative Negative [facility] pH (U) 6.0 [pH] 5.0 - 8.0 pH [facility] Protein (U) [Mass/Vol] 100 mg/dL Abnormal Negative [facility] RBC LM.HPF (Urine sed) [#/Area] 0-2 [facility] Specific gravity (U) [Rel density] 1.005 1.005 - 1.030 [facility] Urobilinogen (U) [Mass/Vol] Normal Normal (0-1) mg/dL [facility] Volume, Urine 12 mL [facility] WBC LM.HPF (Urine sed) [#/Area] 6-10 Abnormal [facility] Vital signson 03-16-2023 Heart rate 74 /min bpm [facility] Free T3 [Mass/Vol]on 023 Interpretation and review of laboratory results Normal [facility] Free T4 [Mass/Vol]on 023 Free T4 Dialysis [Mass/Vol] 2.10 ng/dL 0.78 - 2.19 ng/dL [facility] Interpretation and review of laboratory results Normal [facility] T3, freeon 12-23-2022 Free T3 [Mass/Vol] 3.17 pg/mL 2.77 - 5.27 pg/mL [facility] TSHon 12-23-2022 TSH Qn 0.059 m[IU]/L Low [facility] TSH Qnon 12-23-2022 Interpretation and review of laboratory results Abnormal [facility] MG Breast Tomosynthesis Scr Blon 05-11-2022 MG Breast Tomosynthesis Scr Bl Patient Name: JESSY MCKEON Mammography ACCESSION EXAM DATE/TIME PROCEDURE ORDERING PROVIDER [id number] 05/11/2022 15:00 EDT MG Breast Tomosynthesis MD STAN, EDITH BI Scr CPT code [id number] Reason For Exam (MG Breast Tomosynthesis BI Scr) screening Report TIME SINCE LAST MAMMOGRAM: Last mammogram was performed 1 year and 11 months ago. REASON FOR EXAM: screening, asymptomatic. PROCEDURE: MG BREAST TOMOSYNTHESIS BL SCR: 2021 - 2D/3D Procedure 3D Bilateral CC and MLO view(s) were taken. 2D Bilateral CC and MLO view(s) were taken. Technologist: Raysa Prater Prior study comparison: June 03, 2020, bilateral MG breast tomosynthesis bl scr performed at [facility]. October 23, 2018, bilateral MG breast tomosynthesis bl scr performed at [facility]. May 09, 2017, bilateral MG breast tomosynthesis bl scr performed at [facility]. TISSUE DENSITY: BIRADS B - There are scattered fibroglandular densities. . FINDINGS: No suspicious masses, architectural distortions or suspiciously clustered microcalcifications are identified. There is no evidence of skin thickening or nipple retraction. There are no significant changes when compared with prior studies. No mammographic evidence of malignancy. Markings on images: BB's = Nipples; skin lesions Open nisqually = Palpable Line = Scar 2D digital mammography and tomosynthesis imaging were performed and reviewed with CAD. ASSESSMENT: Category 1 Negative Mammography Report RECOMMENDATION: Routine screening mammogram of both breasts in 1 year. . Report Dictated on Final Signed Date and Time: 05/11/2022 3:55 pm Signed by: MD CASTELLANOS ANN C. [facility] Lakesha Simon Digital Screen Janes mcmanus 05-11-2022 Patient Name: JESSY WEN Mammography ACCESSION EXAM DATE/TIME PROCEDURE ORDERING PROVIDER [id number] 05/11/2022 15:00 EDT MG Breast Tomosynthesis MD STAN, EDITH BI Scr CPT code [id number] Reason For Exam (MG Breast Tomosynthesis BI Scr) screening Report TIME SINCE LAST MAMMOGRAM: Last mammogram was performed 1 year and 11 months ago. REASON FOR EXAM: screening, asymptomatic. PROCEDURE: MG BREAST TOMOSYNTHESIS BL SCR: 2021 - 2D/3D Procedure 3D Bilateral CC and MLO view(s) were taken. 2D Bilateral CC and MLO view(s) were taken. Technologist: Raysa Prater Prior study comparison: June 03, 2020, bilateral MG breast tomosynthesis bl scr performed at [facility]. October 23, 2018, bilateral MG breast tomosynthesis bl scr performed at [facility]. May 09, 2017, bilateral MG breast tomosynthesis bl scr performed at [facility]. TISSUE DENSITY: BIRADS B - There are scattered fibroglandular densities. . FINDINGS: No suspicious masses, architectural distortions or suspiciously clustered microcalcifications are identified. There is no evidence of skin thickening or nipple retraction. There are no significant changes when compared with prior studies. No mammographic evidence of malignancy. Markings on images: BB's = Nipples; skin lesions Open nisqually = Palpable Line = Scar 2D digital mammography and tomosynthesis imaging were performed and reviewed with CAD. ASSESSMENT: Category 1 Negative Mammography Report RECOMMENDATION: Routine screening mammogram of both breasts in 1 year. . Report Dictated on --- Final --- Signed Date and Time: 05/11/2022 3:55 pm Signed by: MD RAJ, JUSTYNA [facility] Justyna Castellanos MD - 05/11/2022 Patient Name: JESSY MCKEON Mammography ACCESSION EXAM DATE/TIME PROCEDURE ORDERING PROVIDER [id number] 05/11/2022 15:00 EDT MG Breast Tomosynthesis MD STAN, EDITH BI Scr CPT code [id number] Reason For Exam (MG Breast Tomosynthesis BI Scr) screening Report TIME SINCE LAST MAMMOGRAM: Last mammogram was performed 1 year and 11 months ago. REASON FOR EXAM: screening, asymptomatic. PROCEDURE: MG BREAST TOMOSYNTHESIS BL SCR: 2021 - 2D/3D Procedure 3D Bilateral CC and MLO view(s) were taken. 2D Bilateral CC and MLO view(s) were taken. Technologist: Raysa Prater Prior study comparison: June 03, 2020, bilateral MG breast tomosynthesis bl scr performed at [facility]. October 23, 2018, bilateral MG breast tomosynthesis bl scr performed at [facility]. May 09, 2017, bilateral MG breast tomosynthesis bl scr performed at [facility]. TISSUE DENSITY: BIRADS B - There are scattered fibroglandular densities. . FINDINGS: No suspicious masses, architectural distortions or suspiciously clustered microcalcifications are identified. There is no evidence of skin thickening or nipple retraction. There are no significant changes when compared with prior studies. No mammographic evidence of malignancy. Markings on images: BB's = Nipples; skin lesions Open nisqually = Palpable Line = Scar 2D digital mammography and tomosynthesis imaging were performed and reviewed with CAD. ASSESSMENT: Category 1 Negative Mammography Report RECOMMENDATION: Routine screening mammogram of both breasts in 1 year. . Report Dictated on --- Final --- Signed Date and Time: 05/11/2022 3:55 pm Signed by: MD RAJ, JUSTYNA [facility] Work Phone: Radiology Study observation (narrative) [facility] Work Phone: [facility] Simon Digital Screen Bila teralOrdered By: Justyna Castellanos on 05-11-2022 [facility] Anti-Nuclear Antibodyon 04-16 CRYSTAL Pattern Fine Speckled Normal [facility] Comment on above: Performed By: #### C MP3 #### [facility] [address] [place] [address] #### ESR, RFB #### [facility] [address] [place] [place] [address] #### ANA3 #### [facility] [address] [place] [address] CRYSTAL Titer 1 : 160 Abnormal <1:80 [facility] Comment on above: Result Comment: Test ed by Indirect Immunofluorescence Assay (IFA). Performed By: #### C MP3 #### [facility] [address] [place] [address] #### ESR, RFB #### [facility] [address] [place] [place] [address] #### ANA3 #### [address] [address] Rheumatiod Factor, Bloodon 0 05-04-2022 Rheumatoid Factor-Blood < 9 Normal 0-12 [facility] Comment on above: Performed By: #### C MP3 #### [facility] [address] [place] [address] #### ESR, RFB #### [facility] [address] [place] [address] #### ANA3 #### [facility] [address] [facility] [place] [address] Sed Rateon 05-04-2022 Sed Rate 9 mm/h Normal 0-20 [facility] Comment on above: Performed By: #### C MP3 #### [facility] [address] [place] [address] #### ESR, RFB #### [facility] [address] [place] [address] #### ANA3 #### [facility] [address] [facility] [place] [address] Comp Metabolic Panelon 05-03 ALP [Catalytic activity/Vol] 78 U/L Normal 38-126 [facility] Comment on above: Performed By: #### C MP3 #### [facility] [address] [place] [address] #### ESR, RFB #### [facility] [address] [place] [address] #### ANA3 #### [facility] [address] [place] [address] ALT [Catalytic activity/Vol] 11 U/L Normal 0-34 [facility] Comment on above: Result Comment: The ALT test is performed by an updated assay method. Please note that the reference intervals have been changed and are now sex specific. Performed By: #### C MP3 #### [facility] [address] [place] [address] #### ESR, RFB #### [facility] [address] [place] [address] #### ANA3 #### [address] [place] [address] AST [Catalytic activity/Vol] 32 U/L Normal 15-46 [facility] Comment on above: Performed By: #### C MP3 #### [facility] [address] [place] [address] #### ESR, RFB #### [facility] [address] [place] [address] #### ANA3 #### [facility] [address] [place] [address] Calcium [Mass/Vol] 8.7 mg/dL Normal 8.4-10.4 [facility] Comment on above: Performed By: #### C MP3 #### [facility] [address] [place] [address] #### ESR, RFB #### [facility] [address] [place] [address] #### ANA3 #### [facility] [address] [place] [address] Glucose [Mass/Vol] 126 mg/dL High 70-100 [facility] Comment on above: Performed By: #### C MP3 #### [facility] [address] [place] [address] #### ESR, RFB #### [facility] [address] [place] [address] #### ANA3 #### [place] [address] [place] [address] Urea nitrogen [Mass/Vol] 22 mg/dL High 9-20 [facility] Comment on above: Performed By: #### C MP3 #### [facility] [address] [place] [address] #### ESR, RFB #### [facility] [address] [place] [address] #### ANA3 #### [place] [address] [place] [address] Anion gap [Moles/Vol] 6 mmol/L Normal 3-13 [facility] Comment on above: Performed By: #### C MP3 #### [facility] [address] [place] [address] #### ESR, RFB #### [facility] [address] [place] [address] #### ANA3 #### [place] [address] [place] [address] Bilirubin [Mass/Vol] 0.4 mg/dL Normal 0.2-1.3 [facility] Comment on above: Performed By: #### C MP3 #### [facility] [address] [place] [address] #### ESR, RFB #### [facility] [address] [place] [address] #### ANA3 #### [facility] [address] [place] [address] CO2 [Moles/Vol] 25 mmol/L Normal 22-30 [facility] Comment on above: Performed By: #### C MP3 #### [facility] [address] [place] [address] #### ESR, RFB #### [facility] [address] [place] [address] #### ANA3 #### [address] [address] Creatinine [Mass/Vol] 1.92 mg/dL High 0.52-1.25 [facility] Comment on above: Performed By: #### C MP3 #### [facility] [address] [place] [address] #### ESR, RFB #### [facility] [address] [place] [address] #### ANA3 #### [address] [address] GFR/1.73 sq M.predicted among blacks MDRD (S/P/Bld) [Vol rate/Area] 33.3 mL/min/{1.73_m2} Abnormal >60 [facility] Comment on above: Performed By: #### C MP3 #### [facility] [address] [place] [address] #### ESR, RFB #### [facility] [address] [place] [address] #### ANA3 #### [address] [address] GFR/1.73 sq M.predicted among non-blacks MDRD (S/P/Bld) [Vol rate/Area] 28.8 mL/min/{1.73_m2} Abnormal >60 [facility] Comment on above: Result Comment: KDIG O guidelines provide the following GFR categories: Stage GFR(ml/min/1.73 m2) Terms G1 >=90 Normal or high G2 60-89 Mildly decreased* G3a 45-59 Mildly to moderately decreased G3b 30-44 Moderately to severely decreased G4 15-29 Severely decreased G5 <15 Kidney failure *Relative to young adult level. In the absence of evidence of kidney damage, neither GFR category G1 nor G2 fulfill the criteria for CKD. The CKD-EPI equation is validated in individuals 18 years of age and older. Currently the best equation for estimating glomerular filtration rate (GFR) from serum creatinine in children is the Bedside Barber equation. It is less accurate in patients with extremes of muscle mass, restriction of dietary protein, ingestion of creatine, extra-renal metabolism of creatinine, or treatment with medications that affect renal tubular creatinine secretion. Performed By: #### C MP3 #### [facility] [address] [place] [address] #### ESR, RFB #### [address] [place] [address] #### ANA3 #### [address] [address] Protein [Mass/Vol] 6.8 g/dL Normal 6.3-8.2 [facility] Comment on above: Performed By: #### C MP3 #### [facility] [address] [place] [address] #### ESR, RFB #### [facility] [address] [place] [address] #### ANA3 #### [address] [address] Potassium [Moles/Vol] 4.2 mmol/L Normal 3.5-5.1 [facility] Comment on above: Performed By: #### C MP3 #### [facility] [address] [place] [address] #### ESR, RFB #### [place] [address] [place] [address] #### ANA3 #### [address] Sodium [Moles/Vol] 126 mmol/L Low 135-145 [facility] Comment on above: Performed By: #### C MP3 #### [facility] [address] [place] [address] #### ESR, RFB #### [facility] [address] [place] [address] #### ANA3 #### [facility] [address] Albumin [Mass/Vol] 3.7 g/dL Normal 3.5-5.0 [facility] Comment on above: Performed By: #### C MP3 #### [facility] [address] [place] [address] #### ESR, RFB #### [facility] [address] [place] [address] #### ANA3 #### [address] Chloride [Moles/Vol] 95 mmol/L Low 98-107 [facility] Comment on above: Performed By: #### C MP3 #### [facility] [address] [place] [address] #### ESR, RFB #### [facility] [address] [place] [address] #### ANA3 #### [address] Comprehensive Metabolic Pane nestor 05-03-2022 Albumin [Mass/Vol] 3.7 g/dL 3.5 - 5 g/dL [facility] ALP (Bld) [Catalytic activity/Vol] 78 U/L 38 - 126 U/L [facility] ALT [Catalytic activity/Vol] 11 U/L 0 - 34 U/L [facility] Comment on above: The ALT test is perf ormed by an updated assay method. Please note that the reference intervals have been changed and are now sex specific. Anion gap [Moles/Vol] 6 mmol/L 3 - 13 mmol/L [facility] AST [Catalytic activity/Vol] 32 U/L 15 - 46 U/L [facility] Bilirubin [Mass/Vol] 0.4 mg/dL 0.2 - 1 .3 mg/dL [facility] Calcium [Mass/Vol] 8.7 mg/dL 8.4 - 10. 4 mg/dL [facility] Chloride [Moles/Vol] 95 mmol/L Low 98 - 10 7 mmol/L [facility] CO2 [Moles/Vol] 25 mmol/L 22 - 30 mmol/L [facility] Creatinine [Mass/Vol] 1.92 mg/dL High 0.52 - 1.25 mg/dL [facility] EGFR IF NonAfrican [place] 28.8 mL/min Abnormal 60 - PINF mL/min [facility] Comment on above: KDIGO guidelines pro vide the following GFR categories: Stage GFR(ml/min/1.73 m2) Terms G1 >=90 Normal or high G2 60-89 Mildly decreased* G3a 45-59 Mildly to moderately decreased G3b 30-44 Moderately to severely decreased G4 15-29 Severely decreased G5 <15 Kidney failure *Relative to young adult level. In the absence of evidence of kidney damage, neither GFR category G1 nor G2 fulfill the criteria for CKD. The CKD-EPI equation is validated in individuals 18 years of age and older. Currently the best equation for estimating glomerular filtration rate (GFR) from serum creatinine in children is the Bedside Barber equation. It is less accurate in patients with extremes of muscle mass, restriction of dietary protein, ingestion of creatine, extra-renal metabolism of creatinine, or treatment with medications that affect renal tubular creatinine secretion. Free PSA/Total PSA [Mass fraction] 6.8 g/dL 6.3 - 8.2 g/dL [facility] GFR/1.73 sq M.predicted among blacks MDRD (S/P/Bld) [Vol rate/Area] 33.3 mL/min/{1.73_m2} Abnormal 60 - PINF mL/min [facility] Glucose [Mass/Vol] 126 mg/dL High 70 - 100 mg/dL [facility] Interpretation and review of laboratory results Abnormal [facility] Potassium [Moles/Vol] 4.2 mmol/L 3.5 - 5.1 mmol/L [facility] Sodium [Moles/Vol] 126 mmol/L Low 135 - 145 mmol/L [facility] Urea nitrogen (BldV) [Mass/Vol] 22 mg/dL High 9 - 20 mg/dL [facility] Test Performed by [facility], [facility] Rosalie Person , [place] [id number] [place] [address] LAB [facility] Rheumatoid Factoron 05-03-20 22 Rheumatoid Factor <9 0 - 12 [IU]/mL [facility] Test Performed by [facility], [address] [place], [place] [id number] [place] [address] LAB [facility] Sedimentation Rateon 022 Sed Rate 9 mm/h 0 - 20 mm/h [facility] Test Performed by [facility], [address] [place], [place] [id number] [place] [address] LAB [facility] EULALIA Bloodon 04-08-2022 Released By: see below Normal [facility] Comment on above: Result Comment: Willy Flores D.O. Performed By: #### C MP3 #### [facility] [address] [place] [address] #### ESR, RFB #### [facility] [address] [place] [address] #### ANA3 #### [address] [address] Miscellaneous Referred Testo n 04-08-2022 Result 1: see below Normal [facility] Comment on above: Result Comment: ANCA IFA Pattern None Detected (Ref Interval: None Detected) ANCA IFA Titer <1:20 (Ref Interval: <1:20) Performed By: #### C MP3 #### [address] [address] #### ESR, RFB #### [facility] [address] [place] [address] #### ANA3 #### [address] [address] PLA2R Ab, IgG with Reflexon 04-08-2022 PLA2R, IgG < 1 : 10 Normal <1:10 [facility] Comment on above: Result Comment: Phos pholipase A2 Receptor Antibody, IgG is not detected. No further testing will be performed. Performed By: [facility] [address] [place] [address] Package Delivery Room Service Runner: Sarah Sloan MD, PhD Performed By: #### C MP3 #### [facility] [address] [place] [address] #### ESR, RFB #### [facility] [address] [place] [address] #### ANA3 #### [facility] [address] [place] [address] Serum Protein Electrophoresi son 04-08-2022 Released By: see below Normal [facility] Comment on above: Result Comment: Willy Flores D.O. Performed By: #### C MP3 #### [facility] [address] [place] [address] #### ESR, RFB #### [facility] [address] [place] [address] #### ANA3 #### [address] [address] Anti-Nuclear Antibodyon 03-16 CRYSTAL Pattern Fine Speckled Normal [facility] Comment on above: Performed By: #### C MP3 #### [facility] [address] [place] [address] #### ESR, RFB #### [facility] [address] [place] [address] #### ANA3 #### [facility] [address] [place] [address] CRYSTAL Titer 1 : 160 Abnormal <1:80 [facility] Comment on above: Result Comment: Test ed by Indirect Immunofluorescence Assay (IFA). Performed By: #### C MP3 #### [facility] [address] [place] [address] #### ESR, RFB #### [facility] [address] [place] [address] #### ANA3 #### [facility] [address] [place] [address] GBM Ab, IgG by IFAon 022 GBM Ab, IgG by IFA Negative Normal Negative [facility] Comment on above: Result Comment: INTE RPRETIVE INFORMATION: GBM Ab, IgG (IFA) When present, IgG antibody to glomerular basement membrane (GBM) antigen detected by either indirect fluorescent antibody (IFA) or multiplex bead assay helps support a diagnosis of Goodpasture syndrome. However, the combined result of both assays performed during initial evaluation improves the diagnostic sensitivity for disease. A positive result in one or both assays should be confirmed by renal biopsy. This test was developed and its performance characteristics determined by [employer] [facility]. It has not been cleared or approved by the [place] Food and Drug Administration. This test was performed in a CLIA certified laboratory and is intended for clinical purposes. Performed By: [employer] [facility] [address] [place] [id number] Package Delivery Room Service Runner: Sarah Sloan MD, PhD Performed By: #### C MP3 #### [facility] [address] [place] [address] #### ESR, RFB #### [facility] [address] [place] [address] #### ANA3 #### [address] [address] EULALIA Bloodon 04-07-2022 EULALIA,Blood Normal Pattern Normal [facility] Comment on above: Performed By: #### C MP3 #### [facility] [address] [place] [address] #### ESR, RFB #### [facility] [address] [place] [address] #### ANA3 #### [address] [address] Reviewed By: see below Normal [facility] Comment on above: Result Comment: Vangie White amB.S., Ph.D. Performed By: #### Basilio MP3 #### [facility] [address] [place] [address] #### ESR, RFB #### [facility] [address] [place] [address] #### ANA3 #### [address] [address] Serum Protein Electrophoresi son 04-07-2022 Reviewed By: see below Normal [facility] Comment on above: Result Comment: Vangie White amB.S., Ph.D. Performed By: #### C MP3 #### [facility] [address] [place] [address] #### ESR, RFB #### [facility] [address] [place] [address] #### ANA3 #### [facility] [address] [place] [address] SPE Interpretation See Below Normal [facility] Comment on above: Result Comment: Norm al Pattern. See EULALIA for additional information. Performed By: #### C MP3 #### [facility] [address] [place] [address] #### ESR, RFB #### [facility] [address] [address] #### ANA3 #### [address] [address] Albumin [Mass/Vol] 4.0 g/dL Normal 3.1-5.2 [facility] Comment on above: Performed By: #### C MP3 #### [facility] [address] [place] [address] #### ESR, RFB #### [facility] [address] [place] [address] #### ANA3 #### [address] [address] Alpha-1 0.3 g/dL Normal 0.2-0.4 [facility] Comment on above: Performed By: #### C MP3 #### [facility] [address] [place] [address] #### ESR, RFB #### [facility] [address] [place] [address] #### ANA3 #### [address] [address] Alpha-2 0.6 g/dL Normal 0.5-1.0 [facility] Comment on above: Performed By: #### C MP3 #### [facility] [address] [place] [address] #### ESR, RFB #### [facility] [address] [place] [address] #### ANA3 #### [facility] [address] [facility] [place] [address] Beta 0.7 g/dL Normal 0.6-1.0 [facility] Comment on above: Performed By: #### C MP3 #### [facility] [address] [place] [address] #### ESR, RFB #### [facility] [address] [place] [address] #### ANA3 #### [place] [address] [facility] [place] [address] Gamma 1.2 g/dL Normal 0.4-1.4 [facility] Comment on above: Performed By: #### C MP3 #### [facility] [address] [place] [address] #### ESR, RFB #### [place] [address] [place] [address] #### ANA3 #### [place] [address] [address] [facility] [place] [address] Vit D, 1,25-Dihydroxyon 03-16 Vit D, 1,25-Dihydroxy 41.6 pg/mL Normal 19.9-79.3 [facility] Comment on above: Result Comment: INTE RPRETIVE INFORMATION: Vitamin D, 1,25-Dihydroxy This test is primarily indicated during patient evaluation for hypercalcemia and renal failure. A normal result does not rule out Vitamin D deficiency. The recommended test for diagnosing Vitamin D deficiency is Vitamin D 25-hydroxy. Performed By: [employer] [address] [place] [id number] Package Delivery Room Service Runner: Sarah Sloan MD, PhD Performed By: #### C MP3 #### [facility] [address] [place] [address] #### ESR, RFB #### [facility] [address] [place] [address] #### ANA3 #### [place] [address] [address] [facility] [place] [address] Anti-DNA Antibodyon 04-06-20 Anti-DNA Antibody < 1 : 10 Normal <1:10 [facility] Comment on above: Performed By: #### C MP3 #### [facility] [address] [place] [address] #### ESR, RFB #### [facility] [address] [place] [address] #### ANA3 #### [facility] [address] [place], [place] Miscellaneous Referred Testo n 04-06-2022 Performed By: see below Normal [facility] Comment on above: Result Comment: [employer] [place] Performed By: #### C MP3 #### [facility] [address] [place] [address] #### ESR, RFB #### [facility] [address] [place] [address] #### ANA3 #### [facility] [address] [place], [place] Test Name ANCA IgG by IFA Normal [facility] Comment on above: Performed By: #### C MP3 #### [facility] [address] [place] [address] #### ESR, RFB #### [facility] [address] [place] [address] #### ANA3 #### [facility] [address] [place], [place] Rapid Plasma Reagin (RPR) W Reflex Quanton 04-06-2022 Rapid Plasma Reagin (RPR) Qual Non-Reactive Normal [facility] Comment on above: Result Comment: Non- Reactive Performed By: #### C MP3 #### [facility] [address] [place] [address] #### ESR, RFB #### [facility] [address] [place] [address] #### ANA3 #### [facility] [address] [place] [address] C-Reactive Proteinon 022 CRP [Mass/Vol] 7.1 mg/L Normal 0.0-9.9 [facility] Comment on above: Result Comment: . Performed By: #### C MP3 #### [facility] [address] [place] [address] #### ESR, RFB #### [address] [place] [address] #### ANA3 #### [address] [address] CRP [Mass/Vol] 7.1 mg/L 0 - 9.9 mg/L [facility] Comment on above: . C3 Complementon 04-05-2022 C3 Complement 108 mg/dL 88 - 165 mg/[facility] C3, Bloodon 04-05-2022 C3, Blood 108 mg/dL Normal 88-165 [facility] Comment on above: Performed By: #### C MP3 #### [address] [address] #### ESR, RFB #### [address] [place] [address] #### ANA3 #### [address] [address] C4 Complementon 04-05-2022 C4 Complement 30 mg/dL 14 - 44 mg/dL [facility] C4, Bloodon 04-05-2022 C4, Blood 30 mg/dL Normal 14-44 [facility] Comment on above: Performed By: #### C MP3 #### [facility] [address] [place] [address] #### ESR, RFB #### [address] [place] [address] #### ANA3 #### [address] [address] Creatinine, Random Urineon 0 04-05-2022 Creatinine (U) [Mass/Vol] 13.2 mg/dL No Range [facility] Creatinine, Ur Randomon 08-2 Creatinine, Ur Random 13.2 mg/dL Normal No Range [facility] Comment on above: Performed By: #### C MP3 #### [facility] [address] [place] [address] #### ESR, RFB #### [facility] [address] [place] [address] #### ANA3 #### [address] [address] Folateon 04-05-2022 Folate > 20.0 Normal [facility] Comment on above: Result Comment: >2.8 Performed By: #### C MP3 #### [facility] [address] [place] [address] #### ESR, RFB #### [facility] [address] [place] [address] #### ANA3 #### [address] Folate >20.0 ng/mL [facility] Comment on above: >2.8 Hemoglobin AND Hematocriton 04-05-2022 Hematocrit (Bld) [Volume fraction] 34.7 % Low 35.0-47.0 [facility] Comment on above: Performed By: #### C MP3 #### [facility] [address] [place] [address] #### ESR, RFB #### [facility] [address] [place] [address] #### ANA3 #### [address] Hemoglobin (Bld) [Mass/Vol] 11.8 g/dL Normal 11.7-16.0 [facility] Comment on above: Performed By: #### C MP3 #### [facility] [address] [place] [address] #### ESR, RFB #### [facility] [address] [place] [address] #### ANA3 #### [address] EULALIA Bloodon 04-05-2022 IgA,Blood 187.7 mg/dL Normal 70.0-400.0 [facility] Comment on above: Performed By: #### C MP3 #### [facility] [address] [place] [address] #### ESR, RFB #### [facility] [address] [place] [address] #### ANA3 #### [facility] [address] [place], [place] IgG,Blood 1326.8 mg/dL Normal 700.0-1600 .0 [facility] Comment on above: Performed By: #### C MP3 #### [facility] [address] [place] [address] #### ESR, RFB #### [facility] [address] [place] [address] #### ANA3 #### [facility] [address] [place] [address] IgM Blood 130.5 mg/dL Normal 40.0-230.0 [facility] Comment on above: Performed By: #### C MP3 #### [facility] [address] [place] [address] #### ESR, RFB #### [facility] [address] [place] [address] #### ANA3 #### [facility] [address] [place] [address] No Panel Informationon 04-05 Interpretation and review of laboratory results Abnormal [facility] Test Performed by [facility], [address], [place], [place] [id number] [place] [address] LAB [facility] Test Performed by [facility], [address], [place], [place] [id number] [place] [address] LAB [facility] Test Performed by [facility], [address] , [address] [facility] Interpretation and review of laboratory results Abnormal [facility] Test Performed by [facility], [address] , [address] [facility] Test Performed by [facility], [address] , [address] [facility] Osmolalityon 04-05-2022 Serum Osmolality 279 mosm/kg Low 280 - 300 mosm/kg [facility] Osmolality, Urineon 04-05-20 22 Osmolality, Ur 114 mosm/kg Low 300 - 1000 mosm/kg [facility] Osmolality,Serumon 2 Osmolality,Serum 279 mosm/kg Low 280-300 [facility] Comment on above: Performed By: #### C MP3 #### [facility] [address] [place] [address] #### ESR, RFB #### [facility] [address] [facility] [place] [address] #### ANA3 #### [address] [address] Osmolality,Urineon 2 Osmolality,Urine 114 mosm/kg Low 300-1000 [facility] Comment on above: Performed By: #### C MP3 #### [facility] [address] [place] [address] #### ESR, RFB #### [facility] [address] [place] [address] #### ANA3 #### [address] [address] PTH, Intacton 04-05-2022 PTH, Intact 88.8 pg/mL High 8.0-54.0 [facility] Comment on above: Performed By: #### C MP3 #### [facility] [address] [place] [address] #### ESR, RFB #### [facility] [address] [address] #### ANA3 #### [address] [address] Interpretation and review of laboratory results Abnormal [facility] Pth Intact 88.8 pg/mL High 8 - 54 pg/mL [facility] Test Performed by [facility], [address] [place], [place] [address] [facility] [place] [facility] Protein, Ur Randomon 022 Protein, Ur Random 121 mg/dL High No Range [facility] Comment on above: Performed By: #### C MP3 #### [facility] [address] [place] [address] #### ESR, RFB #### [facility] [address] [place] [address] #### ANA3 #### [place] [address] [place] [address] Protein, urine, randomon Protein (U) [Mass/Vol] 121 mg/dL High No Range [facility] Renal Functionon 04-05-2022 Calcium [Mass/Vol] 9.7 mg/dL Normal 8.4-10.4 [facility] Comment on above: Performed By: #### C MP3 #### [facility] [address] [place] [address] #### ESR, RFB #### [place] [address] [place] [address] #### ANA3 #### [address] [place] [address] Phosphate [Mass/Vol] 3.8 mg/dL Normal 2.5-4.5 [facility] Comment on above: Performed By: #### C MP3 #### [facility] [address] [place] [address] #### ESR, RFB #### [place] [address] [place] [address] #### ANA3 #### [address] [place] [address] Anion gap [Moles/Vol] 7 mmol/L Normal 3-13 [facility] Comment on above: Performed By: #### C MP3 #### [facility] [address] [place] [address] #### ESR, RFB #### [place] [address] [place] [address] #### ANA3 #### [address] [place] [address] CO2 [Moles/Vol] 27 mmol/L Normal 22-30 [facility] Comment on above: Performed By: #### C MP3 #### [facility] [address] [place] [address] #### ESR, RFB #### [facility] [address] [place] [address] #### ANA3 #### [facility] [address] [place] [address] Creatinine [Mass/Vol] 2.18 mg/dL High 0.52-1.25 [facility] Comment on above: Performed By: #### C MP3 #### [facility] [address] [place] [address] #### ESR, RFB #### [facility] [address] [place] [address] #### ANA3 #### [address] [address] GFR/1.73 sq M.predicted among blacks MDRD (S/P/Bld) [Vol rate/Area] 28.6 mL/min/{1.73_m2} Abnormal >60 [facility] Comment on above: Performed By: #### C MP3 #### [facility] [address] [place] [address] #### ESR, RFB #### [place] [address] [place] [address] #### ANA3 #### [address] [address] GFR/1.73 sq M.predicted among non-blacks MDRD (S/P/Bld) [Vol rate/Area] 24.7 mL/min/{1.73_m2} Abnormal >60 [facility] Comment on above: Result Comment: KDIG O guidelines provide the following GFR categories: Stage GFR(ml/min/1.73 m2) Terms G1 >=90 Normal or high G2 60-89 Mildly decreased* G3a 45-59 Mildly to moderately decreased G3b 30-44 Moderately to severely decreased G4 15-29 Severely decreased G5 <15 Kidney failure *Relative to young adult level. In the absence of evidence of kidney damage, neither GFR category G1 nor G2 fulfill the criteria for CKD. The CKD-EPI equation is validated in individuals 18 years of age and older. Currently the best equation for estimating glomerular filtration rate (GFR) from serum creatinine in children is the Bedside Barber equation. It is less accurate in patients with extremes of muscle mass, restriction of dietary protein, ingestion of creatine, extra-renal metabolism of creatinine, or treatment with medications that affect renal tubular creatinine secretion. Performed By: #### C MP3 #### [facility] [address] [place] [address] #### ESR, RFB #### [facility] [address] [place] [address] #### ANA3 #### [facility] [address] [place] [address] Glucose [Mass/Vol] 93 mg/dL Normal 70-100 [facility] Comment on above: Performed By: #### C MP3 #### [facility] [address] [place] [address] #### ESR, RFB #### [facility] [address] [place] [address] #### ANA3 #### [address] [place] [address] Urea nitrogen [Mass/Vol] 20 mg/dL Normal 9-20 [facility] Comment on above: Performed By: #### C MP3 #### [facility] [place] [address] #### ESR, RFB #### [facility] [address] [place] [address] #### ANA3 #### [address] [place] [address] Albumin [Mass/Vol] 4.0 g/dL Normal 3.5-5.0 [facility] Comment on above: Performed By: #### C MP3 #### [facility] [address] [place] [address] #### ESR, RFB #### [facility] [address] [place] [address] #### ANA3 #### [place] [address] [place] [address] Chloride [Moles/Vol] 98 mmol/L Normal 98-107 [facility] Comment on above: Performed By: #### C MP3 #### [facility] [address] [place] [address] #### ESR, RFB #### [facility] [address] [place] [address] #### ANA3 #### [facility] [address] [place], [place] Potassium [Moles/Vol] 4.2 mmol/L Normal 3.5-5.1 [facility] Comment on above: Performed By: #### C MP3 #### [facility] [address] [place] [address] #### ESR, RFB #### [facility] [address] [place] [address] #### ANA3 #### [facility] [address] [place] [address] Sodium [Moles/Vol] 132 mmol/L Low 135-145 [facility] Comment on above: Performed By: #### C MP3 #### [facility] [address] [place] [address] #### ESR, RFB #### [facility] [address] [place] [address] #### ANA3 #### [facility] [address] [place] [address] Renal Function Panelon 04-05 Anion gap [Moles/Vol] 7 mmol/L 3 - 13 mmol/L [facility] Calcium [Mass/Vol] 9.7 mg/dL 8.4 - 10. 4 mg/dL [facility] CO2 [Moles/Vol] 27 mmol/L 22 - 30 mmol/L [facility] Creatinine [Mass/Vol] 2.18 mg/dL High 0.52 - 1.25 mg/dL [facility] EGFR IF NonAfrican [place] 24.7 mL/min Abnormal 60 - PINF mL/min [facility] Comment on above: KDIGO guidelines pro vide the following GFR categories: Stage GFR(ml/min/1.73 m2) Terms G1 >=90 Normal or high G2 60-89 Mildly decreased* G3a 45-59 Mildly to moderately decreased G3b 30-44 Moderately to severely decreased G4 15-29 Severely decreased G5 <15 Kidney failure *Relative to young adult level. In the absence of evidence of kidney damage, neither GFR category G1 nor G2 fulfill the criteria for CKD. The CKD-EPI equation is validated in individuals 18 years of age and older. Currently the best equation for estimating glomerular filtration rate (GFR) from serum creatinine in children is the Bedside Barebr equation. It is less accurate in patients with extremes of muscle mass, restriction of dietary protein, ingestion of creatine, extra-renal metabolism of creatinine, or treatment with medications that affect renal tubular creatinine secretion. GFR/1.73 sq M.predicted among blacks MDRD (S/P/Bld) [Vol rate/Area] 28.6 mL/min/{1.73_m2} Abnormal 60 - PINF mL/min [facility] Glucose [Mass/Vol] 93 mg/dL 70 - 100 mg/dL [facility] Phosphate [Mass/Vol] 3.8 mg/dL 2.5 - 4 .5 mg/dL [facility] Urea nitrogen (BldV) [Mass/Vol] 20 mg/dL 9 - 20 mg/dL [facility] Retic Count(%)on 04-05-2022 Retic Count(%) 1.4 Normal [facility] Comment on above: Result Comment: Newb orn < 5% Adults 0.5 - 1.5% Performed By: #### C MP3 #### [facility] [address] [place] [address] #### ESR, RFB #### [facility] [address] [place] [address] #### ANA3 #### [address] [address] Reticulocyteson 04-05-[address] Pct 1.4 [facility] Comment on above: < 5% Adults 0.5 - 1.5% Test Performed by [facility], [address] [place], [place] [id number] [place] [address] LAB [facility] Sed Rateon 04-05-2022 Sed Rate 9 mm/h Normal 0-20 [facility] Comment on above: Performed By: #### C MP3 #### [facility] [address] [place] [address] #### ESR, RFB #### [facility] [address] [place] [address] #### ANA3 #### [facility] [facility] [address] [place] [address] Sedimentation Rateon 022 Sed Rate 9 mm/h 0 - 20 mm/h [facility] Serum Protein Electrophoresi son 04-05-2022 Protein [Mass/Vol] 6.8 g/dL Normal 6.3-8.2 [facility] Comment on above: Performed By: #### C MP3 #### [facility] [address] [place] [address] #### ESR, RFB #### [facility] [address] [place] [address] #### ANA3 #### [address] [address] TSHon 04-05-2022 Interpretation and review of laboratory results Abnormal [facility] TSH Qn 0.036 u[IU]/mL Low 0.465 - 4.68 u[IU]/mL [facility] Test Performed by [facility], [address] , [address] LAB [facility] Thyroid Stim. Hormoneon 03-16 Thyroid Stim. Hormone 0.036 u[IU]/mL Low 0.46 5-4.68 0 [facility] Comment on above: Performed By: #### C MP3 #### [facility] [address] [place] [address] #### ESR, RFB #### [facility] [address] [place] [address] #### ANA3 #### [address] [address] Uric Acidon 04-05-2022 Urate [Mass/Vol] 5.5 mg/dL Normal 3.5-8.5 [facility] Comment on above: Performed By: #### C MP3 #### [facility] [address] [place] [address] #### ESR, RFB #### [facility] [address] [place] [address] #### ANA3 #### [address] [place] [address] Urate [Mass/Vol] 5.5 mg/dL 3.5 - 8.5 mg/dL [facility] Vit D 25-OH, Totalon 022 Vit D 25-OH, Total 33 ng/mL Normal 30-100 [facility] Comment on above: Result Comment: Ther apy is based on measurement of Total 25- OHD with the following classification levels: Less than 20 ng/mL: Indicative of Vit D deficiency 20-30 ng/mL: Suggests Vit D insufficiency Optimal: Greater than or equal to 30 ng/mL Test performed by fuseSPORT Competitive Immunoassay, measuring Total Vitamin D, not individual fractions. Performed By: #### C MP3 #### [facility] [address] [place] [address] #### ESR, RFB #### [facility] [address] [place] [address] #### ANA3 #### [address] [address] Vitamin B12on 04-05-2022 Cobalamin (Vitamin B12) [Mass/Vol] 913 pg/mL Normal 239-931 [facility] Comment on above: Performed By: #### C MP3 #### [facility] [address] [place] [address] #### ESR, RFB #### [facility] [address] [place] [address] #### ANA3 #### [facility] [address] [place] [address] Cobalamin (Vitamin B12) [Mass/Vol] 913 pg/mL 239 - 931 pg/mL [facility] Vitamin D 25 Hydroxyon 04-05 Vit D, 25-Hydroxy 33 ng/mL 30 - 100 ng/mL [facility] Comment on above: Therapy is based on measurement of Total 25-OHD with the following classification levels: Less than 20 ng/mL: Indicative of Vit D deficiency 20-30 ng/mL: Suggests Vit D insufficiency Optimal: Greater than or equal to 30 ng/mL Test performed by fuseSPORT Competitive Immunoassay, measuring Total Vitamin D, not individual fractions. Test Performed by [facility], [address], [place], [place] [address] [facility] CBC with Auto Differentialon 03-24-2022 Absolute Baso # 0.0 10*3/uL 0 - 0.2 10*3/uL [facility] Absolute Neut # 2.5 10*3/uL 1.8 - 7 10*3/uL [facility] Basophils/100 WBC (Bld) 0.3 % 0 - 2 % [facility] Eosinophils (Bld) [#/Vol] 0.2 10*3/uL 0 - 0.5 10*3/uL [facility] Eosinophils/100 WBC (Bld) 2.9 % 1 - 6 % [facility] Granulocytes/100 WBC (Bld) 42.6 % 40 - 80 % [facility] Hematocrit (Bld) [Volume fraction] 32.5 % Low 35 - 47 % [facility] Hemoglobin (Bld) [Mass/Vol] 11.0 g/dL Low 11.7 - 16 g/dL [facility] Interpretation and review of laboratory results Abnormal [facility] Lymphocytes (Bld) [#/Vol] 2.6 10*3/uL 1 - 4.3 10*3/uL [facility] Lymphocytes/100 WBC (Bld) 44.5 % High 20 - 40 % [facility] MCH (RBC) [Entitic mass] 31.6 pg 26 - 34 pg [facility] MCHC (RBC) [Mass/Vol] 33.8 % 32 - 36 % [facility] MCV (RBC) [Entitic vol] 93.4 fL 79 - 98 fL [facility] Monocytes (Bld) [#/Vol] 0.6 10*3/uL 0 - 0.8 10*3/uL [facility] Monocytes/100 WBC (Bld) 9.5 % 2 - 10 % [facility] Platelet distribution width (Bld) [Ratio] 13.0 % 11.5 - 14.5 % [facility] Platelet mean volume (Bld) [Entitic vol] 8.7 fL 7.4 - 12.4 fL [facility] Comment on above: MPV is a calculated measurement using platelet volume ratio. Platelets (Bld) [#/Vol] 219 10*3/uL 140 - 440 10*3/uL [facility] RBC (Bld) [#/Vol] 3.48 10*6/uL Low 3.8 - 5.2 10*6/uL [facility] WBC (Bld) [#/Vol] 5.9 10*3/uL 3.6 - 10.7 10*3/uL [facility] Test Performed by [facility], [address] , [address] LAB [facility] Hemogram w/ Autodiffon 03-24 Abs Baso Cnt 0.0 10*3/uL Normal 0.0-0.2 [facility] Comment on above: Performed By: #### C MP3 #### [facility] [address] [facility] [place] [address] #### ESR, RFB #### [address] [place] [address] #### ANA3 #### [address] [address] Abs Neutrophile Cnt 2.5 10*3/uL Normal 1.8-7.0 [facility] Comment on above: Performed By: #### C MP3 #### [place] [address] #### ESR, RFB #### [address] [place] [address] #### ANA3 #### [address] [address] Basophils/100 WBC (Bld) 0.3 % Normal 0.0-2.0 [facility] Comment on above: Performed By: #### C MP3 #### [address] [place] [address] #### ESR, RFB #### [address] [place] [address] #### ANA3 #### [address] [address] Eosinophils (Bld) [#/Vol] 0.2 10*3/uL Normal 0.0-0.5 [facility] Comment on above: Performed By: #### C MP3 #### [address] [place] [address] #### ESR, RFB #### [facility] [address] [place] [address] #### ANA3 #### [address] [address] Eosinophils/100 WBC (Bld) 2.9 % Normal 1.0-6.0 [facility] Comment on above: Performed By: #### C MP3 #### [facility] [address] [place] [address] #### ESR, RFB #### [facility] [address] [place] [address] #### ANA3 #### [address] [address] Erythrocyte distribution width (RBC) [Ratio] 13.0 % Normal 11.5-14.5 [facility] Comment on above: Performed By: #### C MP3 #### [facility] [address] [place] [address] #### ESR, RFB #### [facility] [address] [place] [address] #### ANA3 #### [address] [address] Granulocytes/100 WBC (Bld) 42.6 % Normal 40.0-80.0 [facility] Comment on above: Performed By: #### C MP3 #### [facility] [address] [place] [address] #### ESR, RFB #### [facility] [address] [place] [address] #### ANA3 #### [address] [address] Hematocrit (Bld) [Volume fraction] 32.5 % Low 35.0-47.0 [facility] Comment on above: Performed By: #### C MP3 #### [facility] [address] [place] [address] #### ESR, RFB #### [facility] [address] [place] [address] #### ANA3 #### [address] [place] Hemoglobin (Bld) [Mass/Vol] 11.0 g/dL Low 11.7-16.0 [facility] Comment on above: Performed By: #### C MP3 #### [facility] [address] [place] [address] #### ESR, RFB #### [facility] [address] [place], [place] #### ANA3 #### [facility] [address] Lymphocytes (Bld) [#/Vol] 2.6 10*3/uL Normal 1.0-4.3 [facility] Comment on above: Performed By: #### C MP3 #### [facility] [address] [place] [address] #### ESR, RFB #### [facility] [address] [place], [place] #### ANA3 #### [address] Lymphocytes/100 WBC (Bld) 44.5 % High 20.0-40.0 [facility] Comment on above: Performed By: #### C MP3 #### [facility] [address] [place] [address] #### ESR, RFB #### [facility] [address] [place] [address] #### ANA3 #### [address] MCH (RBC) [Entitic mass] 31.6 pg Normal 26.0-34.0 [facility] Comment on above: Performed By: #### C MP3 #### [facility] [address] [place] [address] #### ESR, RFB #### [facility] [address] [place] [address] #### ANA3 #### [address] MCHC 33.8 % Normal 32.0-36.0 [facility] Comment on above: Performed By: #### C MP3 #### [facility] [address] [place] [address] #### ESR, RFB #### [facility] [address] [place] [address] #### ANA3 #### [facility] [address] [place] [address] MCV (RBC) [Entitic vol] 93.4 fL Normal 79.0-98.0 [facility] Comment on above: Performed By: #### C MP3 #### [facility] [address] [place] [address] #### ESR, RFB #### [facility] [address] [place] [address] #### ANA3 #### [address] Monocytes (Bld) [#/Vol] 0.6 10*3/uL Normal 0.0-0.8 [facility] Comment on above: Performed By: #### C MP3 #### [facility] [address] [place] [address] #### ESR, RFB #### [facility] [address] [place] [address] #### ANA3 #### [address] [address] Monocytes/100 WBC (Bld) 9.5 % Normal 2.0-10.0 [facility] Comment on above: Performed By: #### C MP3 #### [facility] [address] [place] [address] #### ESR, RFB #### [facility] [address] [place] [address] #### ANA3 #### [address] [address] Platelet mean volume (Bld) [Entitic vol] 8.7 fL Normal 7.4-12.4 [facility] Comment on above: Result Comment: MPV is a calculated measurement using platelet volume ratio. Performed By: #### C MP3 #### [facility] [address] [place] [address] #### ESR, RFB #### [facility] [address] [place] [address] #### ANA3 #### [facility] [address] [place] [address] Platelets (Bld) [#/Vol] 219 10*3/uL Normal 140-440 [facility] Comment on above: Performed By: #### C MP3 #### [facility] [address] [place] [address] #### ESR, RFB #### [facility] [address] [place] [address] #### ANA3 #### [address] [address] RBC (Bld) [#/Vol] 3.48 10*6/uL Low 3.80-5.20 [facility] Comment on above: Performed By: #### C MP3 #### [facility] [address] [place] [address] #### ESR, RFB #### [facility] [address] [place] [address] #### ANA3 #### [address] [address] WBC (Bld) [#/Vol] 5.9 10*3/uL Normal 3.6-10.7 [facility] Comment on above: Performed By: #### C MP3 #### [facility] [address] [place] [address] #### ESR, RFB #### [facility] [address] [place] [address] #### ANA3 #### [address] [address] Lipid Panelon 03-24-2022 Chol/HDL 4 Normal [facility] Comment on above: Result Comment: Ref Range: < 3 Low Risk for CHD 3-6 Mod Risk for CHD > 6 High Risk for CHD Performed By: #### C MP3 #### [facility] [address] [place] [address] #### ESR, RFB #### [facility] [address] [place] [address] #### ANA3 #### [facility] [address] [facility] [place] [address] Cholesterol in HDL [Mass/Vol] 53 mg/dL Normal 40-60 [facility] Comment on above: Performed By: #### C MP3 #### [facility] [address] [place] [address] #### ESR, RFB #### [facility] [address] [place] [address] #### ANA3 #### [place] [address] [facility] [place] [address] Low Density Lipoprotein 152 mg/dL Abnormal <100 [facility] Comment on above: Performed By: #### C MP3 #### [facility] [address] [place] [address] #### ESR, RFB #### [facility] [address] [place] [address] #### ANA3 #### [place] [address] [address] [facility] [place] [address] Triglyceride [Mass/Vol] 142 mg/dL Normal <150 [facility] Comment on above: Performed By: #### C MP3 #### [facility] [address] [place] [address] #### ESR, RFB #### [facility] [address] [place] [address] #### ANA3 #### [place] [address] [address] [facility] [place] [address] Cholesterol [Mass/Vol] 233 mg/dL Abnormal < 200 [facility] Comment on above: Performed By: #### C MP3 #### [facility] [address] [place] [address] #### ESR, RFB #### [facility] [address] [place] [address] #### ANA3 #### [place] [address] [place] [address] Cholesterol [Mass/Vol] 233 mg/dL Abnormal NINF - 200 mg/dL [facility] Cholesterol in HDL [Mass/Vol] 53 mg/dL 40 - 60 mg/dL [facility] Cholesterol in LDL [Mass/Vol] 152 mg/dL Abnormal NINF - 100 mg/dL [facility] Cholesterol.total/Chol esterol in HDL [Mass ratio] 4 {ratio} [facility] Comment on above: Ref Range: < 3 Low Risk for CHD 3-6 Mod Risk for CHD > 6 High Risk for CHD Interpretation and review of laboratory results Abnormal [facility] Triglyceride [Mass/Vol] 142 mg/dL NINF - 150 mg/dL [facility] Test Performed by [facility], [address] [place] [address] , [address] LAB [facility] ECHO Complete 2D W Doppler W Coloron 03-04-2022 TRANSTHORACIC ECHOCARDIOGRAM PATIENT: Jessy Mckeon STUDY DATE: 03/04/2022 : 1965 AGE: 57 HT/WT: 160 cm (63 104.8 kg in) (230.5 lb) GENDER: F BP: 155 / 97 LOCATION: [facility] PATIENT Outpatient [facility] STATUS: *ORDERING PHYSICIAN: * Edith Pierce *READING PHYSICIAN: * Kurt Paris, *STUDENT SUPPORT ADVISOR: * DO Allan, JIM, KITA [place] INDICATIONS: New AFib. CONCLUSIONS SUMMARY: 1. Normal echocardiogram for age. 2. Left ventricle: Systolic function is normal. The estimated ejection fraction is 64%. There are no regional wall motion abnormalities. Left ventricular diastolic function parameters are normal for the patient's age. 3. Right ventricle: Systolic function is normal. Right ventricular systolic pressure is within the normal range. 4. No significant valve disease for age. 5. Aortic root: The aortic root is normal in size. 6. Ascending aorta: The ascending aorta is normal in size. 7. Pericardium, extracardiac: There is no pericardial effusion. STUDY DATA: Complete transthoracic echocardiogram. Procedure: Image quality was fair. M-mode, complete 2D, complete spectral Doppler, and color flow Doppler images were acquired and archived for permanent storage and are available for subsequent review. Study status: Routine. Patient status: Outpatient. ECG RHYTHM: NSR FINDINGS LEFT VENTRICLE: The cavity size is normal. Wall thickness is mildly increased. Systolic function is normal. The estimated ejection fraction is 64%. There are no regional wall motion abnormalities. Left ventricular diastolic function parameters are normal for the patient's age. RIGHT VENTRICLE: The cavity size is normal. Systolic function is normal. Right ventricular systolic pressure is within the normal range. VENTRICULAR SEPTUM: There is no evidence of a ventricular septal defect. LEFT ATRIUM: The atrium is normal in size. RIGHT ATRIUM: The atrium is normal in size. ATRIAL SEPTUM: Color Doppler shows no shunt. MITRAL VALVE: Mildly calcified annulus. Doppler: There is no significant regurgitation. AORTIC VALVE: Structurally normal valve. Trileaflet. Cusp separation is normal. Doppler: Transvalvular velocity is within the normal range. There is no stenosis. There is no regurgitation. The peak systolic gradient is 7 mm Hg. The peak systolic velocity is 1.3 m/sec. TRICUSPID VALVE: Structurally normal valve. Doppler: There is no significant regurgitation. PULMONIC VALVE: Not well visualized. Structurally normal valve. Doppler: There is no significant regurgitation. AORTA: Aortic root: The aortic root is normal in size. Ascending aorta: The ascending aorta is normal in size. PULMONARY ARTERY: Main pulmonary artery: Normal. PERICARDIUM: There is no pericardial effusion. SYSTEMIC VEINS: Inferior vena cava: The vessel is normal. The IVC collapses by greater than 50% with inspiration. Measurements Value Reference Aortic root ID, ED (sinus) 4.0 cm <4.3 Value Reference Ascending aorta ID, A-P, S 3.3 cm Ascending aorta ID/bsa, A-P, S 1.5 cm/m^2 Left ventricle Value Reference LV ID, ED 5.1 cm 3.8 - 5.2 LV ID, ES 3.1 cm 2.2 - 3.5 LV ID/bsa, ED 2.3 cm/m^2 2.3 - 3.1 LV ID/bsa, ES 1.4 cm/m^2 1.3 - 2.1 LV PW thickness, ED (H) 1.1 cm 0.6 - 0.9 LV PW/LV ID ratio, ED 0.21 LV wall mass (H) 204 g 66 - 150 LV wall mass/bsa (H) 92 g/m^2 44 - 88 Stroke volume/bsa, 1-p A2C 20.4 ml/m^2 LV end-diastolic volume, 1-p A4C 70 ml 48 - 140 LV end-systolic volume, 1-p A4C 26 ml 12 - 60 LV end-diastolic volume, 2-p 72 ml 46 - 106 LV end-systolic volume, 2-p 26 ml 14 - 42 LV ejection fraction, 2-p 64 % 54 - 74 LV E/e', lateral 6.9 LV E/e', medial 10.1 LV E/e' (more content not included)... [facility] Kurt Paris DO - 03/04/2022 TRANSTHORACIC ECHOCARDIOGRAM PATIENT: Jessy Mckeon STUDY DATE: 03/04/2022 : 1965 AGE: 57 HT/WT: 160 cm (63 104.8 kg in) (230.5 lb) GENDER: F BP: 155 / 97 LOCATION: [facility] PATIENT Outpatient [facility] STATUS: *ORDERING PHYSICIAN: * Edith Pierce *READING PHYSICIAN: * Kurt Paris, *STUDENT SUPPORT ADVISOR: * DO Allan, FSVM, FACC Shanique INDICATIONS: New AFib. CONCLUSIONS SUMMARY: 1. Normal echocardiogram for age. 2. Left ventricle: Systolic function is normal. The estimated ejection fraction is 64%. There are no regional wall motion abnormalities. Left ventricular diastolic function parameters are normal for the patient's age. 3. Right ventricle: Systolic function is normal. Right ventricular systolic pressure is within the normal range. 4. No significant valve disease for age. 5. Aortic root: The aortic root is normal in size. 6. Ascending aorta: The ascending aorta is normal in size. 7. Pericardium, extracardiac: There is no pericardial effusion. STUDY DATA: Complete transthoracic echocardiogram. Procedure: Image quality was fair. M-mode, complete 2D, complete spectral Doppler, and color flow Doppler images were acquired and archived for permanent storage and are available for subsequent review. Study status: Routine. Patient status: Outpatient. ECG RHYTHM: NSR FINDINGS LEFT VENTRICLE: The cavity size is normal. Wall thickness is mildly increased. Systolic function is normal. The estimated ejection fraction is 64%. There are no regional wall motion abnormalities. Left ventricular diastolic function parameters are normal for the patient's age. RIGHT VENTRICLE: The cavity size is normal. Systolic function is normal. Right ventricular systolic pressure is within the normal range. VENTRICULAR SEPTUM: There is no evidence of a ventricular septal defect. LEFT ATRIUM: The atrium is normal in size. RIGHT ATRIUM: The atrium is normal in size. ATRIAL SEPTUM: Color Doppler shows no shunt. MITRAL VALVE: Mildly calcified annulus. Doppler: There is no significant regurgitation. AORTIC VALVE: Structurally normal valve. Trileaflet. Cusp separation is normal. Doppler: Transvalvular velocity is within the normal range. There is no stenosis. There is no regurgitation. The peak systolic gradient is 7 mm Hg. The peak systolic velocity is 1.3 m/sec. TRICUSPID VALVE: Structurally normal valve. Doppler: There is no significant regurgitation. PULMONIC VALVE: Not well visualized. Structurally normal valve. Doppler: There is no significant regurgitation. AORTA: Aortic root: The aortic root is normal in size. Ascending aorta: The ascending aorta is normal in size. PULMONARY ARTERY: Main pulmonary artery: Normal. PERICARDIUM: There is no pericardial effusion. SYSTEMIC VEINS: Inferior vena cava: The vessel is normal. The IVC collapses by greater than 50% with inspiration. Measurements Value Reference Aortic root ID, ED (sinus) 4.0 cm <4.3 Value Reference Ascending aorta ID, A-P, S 3.3 cm Ascending aorta ID/bsa, A-P, S 1.5 cm/m^2 Left ventricle Value Reference LV ID, ED 5.1 cm 3.8 - 5.2 LV ID, ES 3.1 cm 2.2 - 3.5 LV ID/bsa, ED 2.3 cm/m^2 2.3 - 3.1 LV ID/bsa, ES 1.4 cm/m^2 1.3 - 2.1 LV PW thickness, ED (H) 1.1 cm 0.6 - 0.9 LV PW/LV ID ratio, ED 0.21 LV wall mass (H) 204 g 66 - 150 LV wall mass/bsa (H) 92 g/m^2 44 - 88 Stroke volume/bsa, 1-p A2C 20.4 ml/m^2 LV end-diastolic volume, 1-p A4C 70 ml 48 - 140 LV end-systolic volume, 1-p A4C 26 ml 12 - 60 LV end-diastolic volume, 2-p 72 ml 46 - 106 LV end-systolic volume, 2-p 26 ml 14 - 42 LV ejection fraction, 2-p 64 % 54 - 74 LV E/e', lateral 6.9 LV E/e', medial 10.1 LV E/e', average 8.2 Ventricular septum Value Reference IVS thickness, ED (H) 1.1 cm 0.6 - 0.9 LVOT Value Reference LVOT ID, A-P 2.1 cm LVOT mean velocity, S 0.7 m/sec LVOT peak gradient, S 6 mm Hg Stroke volume (SV), LVOT DP 83 ml Stroke index (SV/bsa), LVOT DP 38 ml/m^2 Aortic valve Value Reference Aortic valve peak velocity, S 1.3 m/sec Aortic peak gradient, S 7 mm Hg Left atrium Value Reference LA volume/bsa, ES, 2-p 28 ml/m^2 16 - 34 Mitral valve Value Reference Mitral E-wave peak velocity 0.5 m/sec ------ (more content not included)... [facility] Work Phone: ECHO Complete 2D W Doppler W ColorOrdered By: Kurt Paris on 03-04-2022 [employer] Work Phone: Echo Complete w/wo Contrasto n 03-04-2022 Echo Complete w/wo Contrast Patient Name: JESSY MCKEON Ultrasound ACCESSION EXAM DATE/TIME PROCEDURE ORDERING PROVIDER [id number] 03/04/2022 14:34 EDT Echo Complete w/wo MD STAN, EDITH Monroy Reason For Exam (Echo Complete w/wo Contrast) New atrial fibrillation Report TRANSTHORACIC ECHOCARDIOGRAM PATIENT: Jessy Mckeon STUDY DATE: 03/04/2022 [facility]#: [id number] : 1965 AGE: 57 HT/WT: 160 cm (63 104.8 kg in) (230.5 lb) GENDER: F BP: 155 / 97 LOCATION: [facility] PATIENT Outpatient [facility] STATUS: *ORDERING PHYSICIAN: * Edith Pierce *READING PHYSICIAN: * Kurt Paris, *STUDENT SUPPORT ADVISOR: * DO Lemus FSVM, [facility] [place] INDICATIONS: New AFib. CONCLUSIONS SUMMARY: 1. Normal echocardiogram for age. 2. Left ventricle: Systolic function is normal. The estimated ejection fraction is 64%. There are no regional wall motion abnormalities. Left ventricular diastolic function parameters are normal for the patient's age. 3. Right ventricle: Systolic function is normal. Right ventricular systolic pressure is within the normal range. 4. No significant valve disease for age. 5. Aortic root: The aortic root is normal in size. 6. Ascending aorta: The ascending aorta is normal in size. 7. Pericardium, extracardiac: There is no pericardial effusion. STUDY DATA: Complete transthoracic echocardiogram. Procedure: Image quality was fair. M-mode, complete 2D, complete spectral Doppler, and color flow Doppler images were acquired and archived for permanent storage and are available for subsequent review. Study status: Routine. Patient status: Outpatient. ECG RHYTHM: NSR FINDINGS LEFT VENTRICLE: The cavity size is normal. Wall thickness is mildly Ultrasound Report increased. Systolic function is normal. The estimated ejection fraction is 64%. There are no regional wall motion abnormalities. Left ventricular diastolic function parameters are normal for the patient's age. RIGHT VENTRICLE: The cavity size is normal. Systolic function is normal. Right ventricular systolic pressure is within the normal range. VENTRICULAR SEPTUM: There is no evidence of a ventricular septal defect. LEFT ATRIUM: The atrium is normal in size. RIGHT ATRIUM: The atrium is normal in size. ATRIAL SEPTUM: Color Doppler shows no shunt. MITRAL VALVE: Mildly calcified annulus. Doppler: There is no significant regurgitation. AORTIC VALVE: Structurally normal valve. Trileaflet. Cusp separation is normal. Doppler: Transvalvular velocity is within the normal range. There is no stenosis. There is no regurgitation. The peak systolic gradient is 7 mm Hg. The peak systolic velocity is 1.3 m/sec. TRICUSPID VALVE: Structurally normal valve. Doppler: There is no significant regurgitation. PULMONIC VALVE: Not well visualized. Structurally normal valve. Doppler: There is no significant regurgitation. AORTA: Aortic root: The aortic root is normal in size. Ascending aorta: The ascending aorta is normal in size. PULMONARY ARTERY: Main pulmonary artery: Normal. PERICARDIUM: There is no pericardial effusion. SYSTEMIC VEINS: Inferior vena cava: The vessel is normal. The IVC collapses by greater than 50% with inspiration. Measurements Value Reference Aortic root ID, ED (sinus) 4.0 cm <4.3 Value Reference Ascending aorta ID, A-P, S 3.3 cm Ascending aorta ID/bsa, A-P, S 1.5 cm/m^2 Left ventricle Value Reference LV ID, ED 5.1 cm 3.8 - 5.2 LV ID, ES 3.1 cm 2.2 - 3.5 LV ID/bsa, ED 2.3 cm/m^2 2.3 - 3.1 LV ID/bsa, ES 1.4 cm/m^2 1.3 - 2.1 LV PW thickness, ED (H) 1.1 cm 0.6 - 0.9 LV PW/LV ID ratio, ED 0.21 LV wall mass (H) 204 g 66 - 150 LV wall mass/bsa (H) 92 g/m^2 44 - 88 Stroke volume/bsa, 1-p A2C 20.4 ml/m^2 LV end-diastolic volume, 1-p A4C 70 ml 48 - 140 LV end-systolic volume, 1-p A4C 26 ml 12 - 60 LV end-diastolic volume, 2-p 72 ml 46 - 106 LV end-systolic volume, 2-p 26 ml 14 - 42 LV ejection fraction, 2-p 64 % 54 - 74 LV E/e', lateral 6.9 LV E/e', medial 10.1 LV E/e', average 8.2 Ventricular septum Value Reference IVS thickness, ED (H) 1.1 cm 0.6 - 0.9 Ultrasound Report LVOT Value Reference LVOT ID, A-P 2.1 cm LVOT mean velocity, S 0.7 m/sec LVOT peak gradient, S 6 mm Hg Stroke volume (SV), LVOT DP 83 ml Stroke index (SV/bsa), LVOT DP 38 ml/m^2 Aortic valve Value Reference (more content not included)... Normal [facility] Basic Metabolic Panelon 05-1 Calcium [Mass/Vol] 9.4 mg/dL Normal 8.4-10.4 [facility] Comment on above: Performed By: #### B MP3 #### [facility] [address], [place] Glucose [Mass/Vol] 95 mg/dL Normal 70-100 [facility] Comment on above: Performed By: #### B MP3 #### [facility] [address], [place] Anion gap [Moles/Vol] 8 mmol/L Normal 3-13 [facility] Comment on above: Performed By: #### B MP3 #### [facility] [address], [place] CO2 [Moles/Vol] 24 mmol/L Normal 22-30 [facility] Comment on above: Performed By: #### B MP3 #### [facility] [address] [place], [place] Creatinine [Mass/Vol] 1.99 mg/dL High 0.52-1.25 [facility] Comment on above: Performed By: #### B MP3 #### [facility] [address], [place] GFR/1.73 sq M.predicted among blacks MDRD (S/P/Bld) [Vol rate/Area] 32.0 mL/min/{1.73_m2} Abnormal >60 [facility] Comment on above: Performed By: #### B MP3 #### [facility] [address] [place], [place] GFR/1.73 sq M.predicted among non-blacks MDRD (S/P/Bld) [Vol rate/Area] 27.6 mL/min/{1.73_m2} Abnormal >60 [facility] Comment on above: Result Comment: KDIG O guidelines provide the following GFR categories: Stage GFR(ml/min/1.73 m2) Terms G1 >=90 Normal or high G2 60-89 Mildly decreased* G3a 45-59 Mildly to moderately decreased G3b 30-44 Moderately to severely decreased G4 15-29 Severely decreased G5 <15 Kidney failure *Relative to young adult level. In the absence of evidence of kidney damage, neither GFR category G1 nor G2 fulfill the criteria for CKD. The CKD-EPI equation is validated in individuals 18 years of age and older. Currently the best equation for estimating glomerular filtration rate (GFR) from serum creatinine in children is the Bedside Barber equation. It is less accurate in patients with extremes of muscle mass, restriction of dietary protein, ingestion of creatine, extra-renal metabolism of creatinine, or treatment with medications that affect renal tubular creatinine secretion. Performed By: #### B MP3 #### [facility] [address], [place] Urea nitrogen [Mass/Vol] 25 mg/dL High 9-20 [facility] Comment on above: Performed By: #### B MP3 #### [facility] [address] [place], [place] Chloride [Moles/Vol] 101 mmol/L Normal 98-107 [facility] Comment on above: Performed By: #### B MP3 #### [facility] [address] [place], [place] Potassium [Moles/Vol] 4.9 mmol/L Normal 3.5-5.1 [facility] Comment on above: Performed By: #### B MP3 #### [place] [address] [place], [place] Sodium [Moles/Vol] 133 mmol/L Low 135-145 [facility] Comment on above: Performed By: #### B MP3 #### [place] [address] [place], [place] Basic Metabolic Panelon 03-0 Calcium [Mass/Vol] 9.0 mg/dL Normal 8.4-10.4 [facility] Comment on above: Performed By: #### C MP3 #### [facility] [address] [place] [address] #### ESR, RFB #### [facility] [address] [place] [address] #### ANA3 #### [place] [address] [place], [place] Glucose [Mass/Vol] 89 mg/dL Normal 70-100 [facility] Comment on above: Performed By: #### C MP3 #### [facility] [address] [place] [address] #### ESR, RFB #### [facility] [address] [place] [address] #### ANA3 #### [address] [place], [place] Anion gap [Moles/Vol] 3 mmol/L Normal 3-13 [facility] Comment on above: Performed By: #### C MP3 #### [facility] [address] [place] [address] #### ESR, RFB #### [facility] [address] [place] [address] #### ANA3 #### [facility] [address] [place] [address] CO2 [Moles/Vol] 29 mmol/L Normal 22-30 [facility] Comment on above: Performed By: #### C MP3 #### [facility] [address] [place] [address] #### ESR, RFB #### [place] [address] [place] [address] #### ANA3 #### [address] [address] Creatinine [Mass/Vol] 2.52 mg/dL High 0.52-1.25 [facility] Comment on above: Performed By: #### C MP3 #### [facility] [address] [place] [address] #### ESR, RFB #### [address] [place] [address] #### ANA3 #### [address] [address] GFR/1.73 sq M.predicted among blacks MDRD (S/P/Bld) [Vol rate/Area] 24.1 mL/min/{1.73_m2} Abnormal >60 [facility] Comment on above: Performed By: #### C MP3 #### [facility] [address] [place] [address] #### ESR, RFB #### [address] [place] [address] #### ANA3 #### [address] [address] GFR/1.73 sq M.predicted among non-blacks MDRD (S/P/Bld) [Vol rate/Area] 20.8 mL/min/{1.73_m2} Abnormal >60 [facility] Comment on above: Result Comment: KDIG O guidelines provide the following GFR categories: Stage GFR(ml/min/1.73 m2) Terms G1 >=90 Normal or high G2 60-89 Mildly decreased* G3a 45-59 Mildly to moderately decreased G3b 30-44 Moderately to severely decreased G4 15-29 Severely decreased G5 <15 Kidney failure *Relative to young adult level. In the absence of evidence of kidney damage, neither GFR category G1 nor G2 fulfill the criteria for CKD. The CKD-EPI equation is validated in individuals 18 years of age and older. Currently the best equation for estimating glomerular filtration rate (GFR) from serum creatinine in children is the Bedside Barber equation. It is less accurate in patients with extremes of muscle mass, restriction of dietary protein, ingestion of creatine, extra-renal metabolism of creatinine, or treatment with medications that affect renal tubular creatinine secretion. Performed By: #### C MP3 #### [facility] [address] [place] [address] #### ESR, RFB #### [facility] [address] [place] [address] #### ANA3 #### [address] [address] Urea nitrogen [Mass/Vol] 28 mg/dL High 9-20 [facility] Comment on above: Performed By: #### C MP3 #### [facility] [address] [place] [address] #### ESR, RFB #### [facility] [address] [address] #### ANA3 #### [address] [address] Chloride [Moles/Vol] 101 mmol/L Normal 98-107 [facility] Comment on above: Performed By: #### C MP3 #### [facility] [address] [place] [address] #### ESR, RFB #### [facility] [address] [facility] [address] #### ANA3 #### [address] [address] Potassium [Moles/Vol] 4.7 mmol/L Normal 3.5-5.1 [facility] Comment on above: Performed By: #### C MP3 #### [facility] [address] [place] [address] #### ESR, RFB #### [facility] [address] [place] [address] #### ANA3 #### [facility] [address] [place] [address] Sodium [Moles/Vol] 134 mmol/L Low 135-145 [facility] Comment on above: Performed By: #### C MP3 #### [facility] [address] [place] [address] #### ESR, RFB #### [facility] [address] [place] [address] #### ANA3 #### [facility] [address] [place] [address] Anion gap [Moles/Vol] 3 mmol/L 3 - 13 mmol/L [facility] Calcium [Mass/Vol] 9.0 mg/dL 8.4 - 10. 4 mg/dL [facility] Chloride [Moles/Vol] 101 mmol/L 98 - 10 7 mmol/L [facility] CO2 [Moles/Vol] 29 mmol/L 22 - 30 mmol/L [facility] Creatinine [Mass/Vol] 2.52 mg/dL High 0.52 - 1.25 mg/dL [facility] EGFR IF NonAfrican [place] 20.8 mL/min Abnormal >60 [facility] Comment on above: KDIGO guidelines pro vide the following GFR categories: Stage GFR(ml/min/1.73 m2) Terms G1 >=90 Normal or high G2 60-89 Mildly decreased* G3a 45-59 Mildly to moderately decreased G3b 30-44 Moderately to severely decreased G4 15-29 Severely decreased G5 <15 Kidney failure *Relative to young adult level. In the absence of evidence of kidney damage, neither GFR category G1 nor G2 fulfill the criteria for CKD. The CKD-EPI equation is validated in individuals 18 years of age and older. Currently the best equation for estimating glomerular filtration rate (GFR) from serum creatinine in children is the Bedside Barber equation. It is less accurate in patients with extremes of muscle mass, restriction of dietary protein, ingestion of creatine, extra-renal metabolism of creatinine, or treatment with medications that affect renal tubular creatinine secretion. GFR/1.73 sq M.predicted among blacks MDRD (S/P/Bld) [Vol rate/Area] 24.1 mL/min/{1.73_m2} Abnormal >60 [facility] Glucose [Mass/Vol] 89 mg/dL 70 - 100 mg/dL [facility] Interpretation and review of laboratory results Abnormal [facility] Potassium [Moles/Vol] 4.7 mmol/L 3.5 - 5.1 mmol/L [facility] Sodium [Moles/Vol] 134 mmol/L Low 135 - 145 mmol/L [facility] Urea nitrogen (BldV) [Mass/Vol] 28 mg/dL High 9 - 20 mg/dL [facility] Test Performed by [facility], [address] , [address] LAB [facility] Free T4on 10-21-2021 Free T4 [Mass/Vol] 1.47 ng/dL Normal 0.78-2.19 [facility] Comment on above: Performed By: #### Yoav CARVER, FT4M #### [facility] [address] [place] [address] #### VD25H, T3FE #### [facility] [address] [place] [address] No Panel Informationon 10-21 Test Performed by [facility], [address] [facility] T3, Freeon 10-21-2021 Free T3 [Mass/Vol] 3.36 pg/mL Normal 2.77-5.27 [facility] Comment on above: Result Comment: . Performed By: #### T LINSEY5, FT4M #### [facility] [address] [place] [address] #### VD25H, T3FE #### [facility] [address] [place] [address] Free T3 [Mass/Vol] 3.36 pg/mL 2.77 - 5.27 pg/mL [facility] Comment on above: . T4, Freeon 10-21-2021 Free T4 [Mass/Vol] 1.47 ng/dL 0.78 - 2.19 ng/dL [facility] Test Performed by [facility], [address] , [address] [facility] TSHon 10-21-2021 Interpretation and review of laboratory results Abnormal [facility] TSH Qn 0.039 u[IU]/mL Low 0.465 - 4.680 u[IU]/mL [facility] Test Performed by [facility], [address] , [place], [place] [address] [facility] Thyroid Stim. Hormoneon Thyroid Stim. Hormone 0.039 u[IU]/mL Low 0.46 5-4.68 0 [facility] Comment on above: Performed By: #### T SH5, FT4M #### [facility] [address] [place] [address] #### VD25H, T3FE #### [facility] [address] [place] [address] Vit D 25-OH, Totalon 022 Vit D 25-OH, Total 14 ng/mL Low 30-100 [facility] Comment on above: Result Comment: Ther apy is based on measurement of Total 25- OHD with the following classification levels: Less than 20 ng/mL: Indicative of Vit D deficiency 20-30 ng/mL: Suggests Vit D insufficiency Optimal: Greater than or equal to 30 ng/mL Test performed by [employer] Immunoassay, measuring Total Vitamin D, not individual fractions. Performed By: #### T SH5, FT4M #### [facility] [address] [facility] [place] [address] #### VD25H, T3FE #### [facility] [address] [place] [address] Vitamin D 25 Hydroxyon 10-21 Interpretation and review of laboratory results Abnormal [facility] Vit D, 25-Hydroxy 14 ng/mL Low 30 - 100 ng/mL [facility] Comment on above: Therapy is based on measurement of Total 25-OHD with the following classification levels: Less than 20 ng/mL: Indicative of Vit D deficiency 20-30 ng/mL: Suggests Vit D insufficiency Optimal: Greater than or equal to 30 ng/mL Test performed by [email or web address] Comp[employer] Immuno[employer], measuring Total Vitamin D, not individual fractions. CBC Auto Differentialon 08-16 Absolute Baso # 0.0 10*3/uL 0.0 - 0.2 10*3/uL [facility] Absolute Neut # 1.7 10*3/uL Low 1.8 - 7.0 10*3/uL [facility] Basophils/100 WBC (Bld) 0.5 % 0.0 - 2.0 % [facility] Eosinophils (Bld) [#/Vol] 0.1 10*3/uL 0.0 - 0.5 10*3/uL [facility] Eosinophils/100 WBC (Bld) 3.4 % 1.0 - 6.0 % [facility] Granulocytes/100 WBC (Bld) 41.4 % 40.0 - 80.0 % [facility] Hematocrit (Bld) [Volume fraction] 34.6 % Low 35.0 - 47.0 % [facility] Hemoglobin.gastrointes tinal spec 1 Ql (Stl) 11.6 g/dL Low 11.7 - 16.0 g/dL [facility] Interpretation and review of laboratory results Abnormal [facility] Lymphocytes (Bld) [#/Vol] 1.8 10*3/uL 1.0 - 4.3 10*3/uL [facility] Lymphocytes/100 WBC (Bld) 44.4 % High 20.0 - 40.0 % [facility] MCH (RBC) [Entitic mass] 29.8 pg 26.0 - 34.0 pg [facility] MCHC (RBC) [Mass/Vol] 33.5 % 32.0 - 36.0 % [facility] MCV (RBC) [Entitic vol] 88.8 fL 79.0 - 98.0 fL [facility] Monocytes (Bld) [#/Vol] 0.4 10*3/uL 0.0 - 0.8 10*3/uL [facility] Monocytes/100 WBC (Bld) 10.3 % High 2.0 - 10.0 % [facility] Platelet distribution width (Bld) [Ratio] 14.4 % 11.5 - 14.5 % [facility] Platelet mean volume (Bld) [Entitic vol] 6.9 fL Low 7.4 - 10.4 fL [facility] Platelets (Bld) [#/Vol] 240 10*3/uL 140 - 440 10*3/uL [facility] RBC (Bld) [#/Vol] 3.90 10*6/uL 3.80 - 5.20 10*6/uL [facility] WBC (Bld) [#/Vol] 4.1 10*3/uL 3.6 - 10.7 10*3/uL [facility] Test Performed by [facility], [address] , [place], [place] [address] [facility] Comp Metabolic Panelon 09-07 ALP [Catalytic activity/Vol] 107 U/L Normal 38-126 [facility] Comment on above: Performed By: #### T LINSEY, FT4M #### [facility] [address] [place] [address] #### VD25H, T3FE #### [facility] [address] [place] [address] ALT [Catalytic activity/Vol] 11 U/L Normal 0-34 [facility] Comment on above: Result Comment: The ALT test is performed by an updated assay method. Please note that the reference intervals have been changed and are now sex specific. Performed By: #### T LINSEY, FT4M #### [facility] [address] [place] [address] #### VD25H, T3FE #### [facility] [address] [place] [address] Anion gap [Moles/Vol] 2 mmol/L Low 3-13 [facility] Comment on above: Performed By: #### T LINSEY, FT4M #### [facility] [address] [place] [address] #### VD25H, T3FE #### [facility] [address] [place] [address] AST [Catalytic activity/Vol] 34 U/L Normal 15-46 [facility] Comment on above: Performed By: #### T SH, FT4M #### [facility] [address] [place] [address] #### VD25H, T3FE #### [facility] [address] [place] [address] Bilirubin [Mass/Vol] 0.3 mg/dL Normal 0.2-1.3 [facility] Comment on above: Performed By: #### T SH, FT4M #### [facility] [address] [place] [address] #### VD25H, T3FE #### [facility] [address] [place] [address] Calcium [Mass/Vol] 8.8 mg/dL Normal 8.4-10.4 [facility] Comment on above: Performed By: #### T , 4 #### [facility] [address] [place] [address] #### VD25H, T3FE #### [facility] [address] [place] [address] CO2 [Moles/Vol] 30 mmol/L Normal 22-30 [facility] Comment on above: Performed By: #### #### [facility] [address] [place] [address] #### VD25H, T3FE #### [facility] [address] [place] [address] Glucose [Mass/Vol] 97 mg/dL Normal 70-100 [facility] Comment on above: Performed By: #### #### [facility] [address] [place] [address] #### VD25, T3FE #### [facility] [address] [place] [address] Protein [Mass/Vol] 6.2 g/dL Low 6.3-8.2 [facility] Comment on above: Performed By: #### #### [facility] [address] [place] [address] #### VD25H, T3FE #### [facility] [address] [place] [address] Urea nitrogen [Mass/Vol] 31 mg/dL High 9-20 [facility] Comment on above: Performed By: #### T , 4 #### [facility] [address] [place] [address] #### VD25H, T3FE #### [facility] [address] [place] [address] Creatinine [Mass/Vol] 2.00 mg/dL High 0.52-1.25 [facility] Comment on above: Performed By: #### T LINSEY, FT4M #### [facility] [address] [place] [address] #### VD25H, T3FE #### [facility] [address] [facility] [place] [address] GFR/1.73 sq M.predicted among blacks MDRD (S/P/Bld) [Vol rate/Area] 31.9 mL/min/{1.73_m2} Abnormal >60 [facility] Comment on above: Performed By: #### T LINSEY, FT4M #### [facility] [address] [place] [address] #### VD25H, T3FE #### [address] [address] GFR/1.73 sq M.predicted among non-blacks MDRD (S/P/Bld) [Vol rate/Area] 27.5 mL/min/{1.73_m2} Abnormal >60 [facility] Comment on above: Result Comment: KDIG O guidelines provide the following GFR categories: Stage GFR(ml/min/1.73 m2) Terms G1 >=90 Normal or high G2 60-89 Mildly decreased* G3a 45-59 Mildly to moderately decreased G3b 30-44 Moderately to severely decreased G4 15-29 Severely decreased G5 <15 Kidney failure *Relative to young adult level. In the absence of evidence of kidney damage, neither GFR category G1 nor G2 fulfill the criteria for CKD. The CKD-EPI equation is validated in individuals 18 years of age and older. Currently the best equation for estimating glomerular filtration rate (GFR) from serum creatinine in children is the Bedside Barber equation. It is less accurate in patients with extremes of muscle mass, restriction of dietary protein, ingestion of creatine, extra-renal metabolism of creatinine, or treatment with medications that affect renal tubular creatinine secretion. Performed By: #### T LINSEY5, FT4M #### [facility] [address] [place] [address] #### VD25H, T3FE #### [facility] [address] [place] [address] Albumin [Mass/Vol] 3.4 g/dL Low 3.5-5.0 [facility] Comment on above: Performed By: #### T SH, FT4M #### [facility] [address] [place] [address] #### VD25H, T3FE #### [facility] [address] [place] [address] Chloride [Moles/Vol] 93 mmol/L Low 98-107 [facility] Comment on above: Performed By: #### T SH, FT4M #### [facility] [address] [place] [address] #### VD25H, T3FE #### [facility] [address] [place] [address] Potassium [Moles/Vol] 5.1 mmol/L Normal 3.5-5.1 [facility] Comment on above: Performed By: #### T SH, FT4M #### [facility] [address] [place] [address] #### VD25H, T3FE #### [facility] [address] [place] [address] Sodium [Moles/Vol] 124 mmol/L Low 135-145 [facility] Comment on above: Performed By: #### T SH, FT4M #### [facility] [address] [place] [address] #### VD25H, T3FE #### [facility] [address] [place] [address] Comprehensive Metabolic Pane nestor 09-07-2021 Albumin [Mass/Vol] 3.4 g/dL Low 3.5 - 5.0 g/dL [facility] ALP (Bld) [Catalytic activity/Vol] 107 U/L 38 - 126 U/L [facility] ALT [Catalytic activity/Vol] 11 U/L 0 - 34 U/L [facility] Comment on above: The ALT test is perf ormed by an updated assay method. Please note that the reference intervals have been changed and are now sex specific. Anion gap [Moles/Vol] 2 mmol/L Low 3 - 13 mmol/L [facility] AST [Catalytic activity/Vol] 34 U/L 15 - 46 U/L [facility] Bilirubin [Mass/Vol] 0.3 mg/dL 0.2 - 1 .3 mg/dL [facility] Calcium [Mass/Vol] 8.8 mg/dL 8.4 - 10. 4 mg/dL [facility] Chloride [Moles/Vol] 93 mmol/L Low 98 - 10 7 mmol/L [facility] CO2 [Moles/Vol] 30 mmol/L 22 - 30 mmol/L [facility] Creatinine [Mass/Vol] 2 mg/dL High 0.52 - 1.25 mg/dL [facility] EGFR IF NonAfrican [place] 27.5 mL/min Abnormal >60 [facility] Comment on above: KDIGO guidelines pro vide the following GFR categories: Stage GFR(ml/min/1.73 m2) Terms G1 >=90 Normal or high G2 60-89 Mildly decreased* G3a 45-59 Mildly to moderately decreased G3b 30-44 Moderately to severely decreased G4 15-29 Severely decreased G5 <15 Kidney failure *Relative to young adult level. In the absence of evidence of kidney damage, neither GFR category G1 nor G2 fulfill the criteria for CKD. The CKD-EPI equation is validated in individuals 18 years of age and older. Currently the best equation for estimating glomerular filtration rate (GFR) from serum creatinine in children is the Bedside Barber equation. It is less accurate in patients with extremes of muscle mass, restriction of dietary protein, ingestion of creatine, extra-renal metabolism of creatinine, or treatment with medications that affect renal tubular creatinine secretion. Free PSA/Total PSA [Mass fraction] 6.2 g/dL Low 6.3 - 8.2 g/dL [facility] GFR/1.73 sq M.predicted among blacks MDRD (S/P/Bld) [Vol rate/Area] 31.9 mL/min/{1.73_m2} Abnormal >60 [facility] Glucose [Mass/Vol] 97 mg/dL 70 - 100 mg/dL [facility] Potassium [Moles/Vol] 5.1 mmol/L 3.5 - 5.1 mmol/L [facility] Sodium [Moles/Vol] 124 mmol/L Low 135 - 145 mmol/L [facility] Urea nitrogen (BldV) [Mass/Vol] 31 mg/dL High 9 - 20 mg/dL [facility] Hemogram w/ Autodiffon 09-07 Abs Baso Cnt 0.0 10*3/uL Normal 0.0-0.2 [facility] Comment on above: Performed By: #### T , FT4 #### [facility] [address] [place] [address] #### VD25H, T3FE #### [facility] [address] [place] [address] Abs Neutrophile Cnt 1.7 10*3/uL Low 1.8-7.0 [facility] Comment on above: Performed By: #### T , FT4 #### [facility] [address] [place] [address] #### VD25H, T3FE #### [facility] [address] [place] [place] [address] Basophils/100 WBC (Bld) 0.5 % Normal 0.0-2.0 [facility] Comment on above: Performed By: #### T , FT4 #### [facility] [address] [place] [address] #### VD25H, T3FE #### [facility] [address] [place] [address] Eosinophils (Bld) [#/Vol] 0.1 10*3/uL Normal 0.0-0.5 [facility] Comment on above: Performed By: #### , FT4 #### [facility] [address] [address] #### VD25H, T3FE #### [facility] [address] [place] [address] Eosinophils/100 WBC (Bld) 3.4 % Normal 1.0-6.0 [facility] Comment on above: Performed By: #### , 4 #### [facility] [address] [place] [address] #### VD25H, T3FE #### [facility] [address] [place] [address] Erythrocyte distribution width (RBC) [Ratio] 14.4 % Normal 11.5-14.5 [facility] Comment on above: Performed By: #### T , FT4 #### [facility] [address] [place] [address] #### VD25H, T3FE #### [facility] [address] [place] [address] Granulocytes/100 WBC (Bld) 41.4 % Normal 40.0-80.0 [facility] Comment on above: Performed By: #### T SH, FT4 #### [facility] [address] [place] [address] #### VD25H, T3FE #### [facility] [address] [place] [address] Hematocrit (Bld) [Volume fraction] 34.6 % Low 35.0-47.0 [facility] Comment on above: Performed By: #### T , FT4 #### [facility] [address] [place] [address] #### VD25H, T3FE #### [facility] [address] [place] [address] Hemoglobin (Bld) [Mass/Vol] 11.6 g/dL Low 11.7-16.0 [facility] Comment on above: Performed By: #### T , FT4 #### [facility] [address] [place] [address] #### VD25H, T3FE #### [facility] [address] [place] [address] Lymphocytes (Bld) [#/Vol] 1.8 10*3/uL Normal 1.0-4.3 [facility] Comment on above: Performed By: #### T SH, FT4 #### [facility] [address] [place] [address] #### VD25H, T3FE #### [facility] [address] [place] [address] Lymphocytes/100 WBC (Bld) 44.4 % High 20.0-40.0 [facility] Comment on above: Performed By: #### T SH, FT4 #### [facility] [address] [place] [address] #### VD25H, T3FE #### [facility] [address] [place] [address] MCH (RBC) [Entitic mass] 29.8 pg Normal 26.0-34.0 [facility] Comment on above: Performed By: #### , FT4 #### [facility] [address] [place] [address] #### VD25H, T3FE #### [facility] [address] [place] [address] MCHC 33.5 % Normal 32.0-36.0 [facility] Comment on above: Performed By: #### , FT4 #### [facility] [address] [place] [address] #### VD25H, T3FE #### [facility] [address] [place] [address] MCV (RBC) [Entitic vol] 88.8 fL Normal 79.0-98.0 [facility] Comment on above: Performed By: #### FT4 #### [facility] [address] [place] [address] #### VD25H, T3FE #### [facility] [address] [place] [address] Monocytes (Bld) [#/Vol] 0.4 10*3/uL Normal 0.0-0.8 [facility] Comment on above: Performed By: #### , FT4 #### [facility] [address] [place] [address] #### VD25H, T3FE #### [facility] [address] [place] [address] Monocytes/100 WBC (Bld) 10.3 % High 2.0-10.0 [facility] Comment on above: Performed By: #### T , FT4 #### [facility] [address] [address] #### VD25H, T3FE #### [facility] [address] [place] [address] Platelet mean volume (Bld) [Entitic vol] 6.9 fL Low 7.4-10.4 [facility] Comment on above: Performed By: #### T SH5, FT4M #### [facility] [address] [place] [address] #### VD25H, T3FE #### [facility] [address] [place] [address] Platelets (Bld) [#/Vol] 240 10*3/uL Normal 140-440 [facility] Comment on above: Performed By: #### T LINSEY, FT4M #### [facility] [address] [place] [address] #### VD25H, T3FE #### [place] [address] [place] [address] RBC (Bld) [#/Vol] 3.90 10*6/uL Normal 3.80-5.20 [facility] Comment on above: Performed By: #### T SH, FT4M #### [facility] [address] [place] [address] #### VD25H, T3FE #### [facility] [address] [place] [address] WBC (Bld) [#/Vol] 4.1 10*3/uL Normal 3.6-10.7 [facility] Comment on above: Performed By: #### T SH5, FT4M #### [facility] [address] [place] [address] #### VD25H, T3FE #### [facility] [address] [place] [address] No Panel Informationon 09-07 Interpretation and review of laboratory results Abnormal [facility] Test Performed by [facility], [address] , [place], [place] [address] [facility] TSH without Reflexon 022 TSH Qn m[IU]/L Low 0.465 - 4.680 u[IU]/mL [facility] Thyroid Stim. Hormoneon 2 Thyroid Stim. Hormone < 0.015 Low 0.465- 4.68 0 [facility] Comment on above: Performed By: #### T SH5, FT4M #### [facility] [address] [place] [address] #### VD25H, T3FE #### [facility] [address] [place] [address] Vit D, 1,25-Dihydroxyon 0 Vit D, 1,25-Dihydroxy 25.2 pg/mL Normal 19.9-79.3 [facility] Comment on above: Result Comment: INTE RPRETIVE INFORMATION: Vitamin D, 1,25-Dihydroxy This test is primarily indicated during patient evaluation for hypercalcemia and renal failure. A normal result does not rule out Vitamin D deficiency. The recommended test for diagnosing Vitamin D deficiency is Vitamin D 25-hydroxy. Performed By: [employer] [address] [place] [address] Package Delivery Room Service Runner: Danica Miller MD Performed By: #### T SH5, FT4M #### [facility] [address] [place] [address] #### VD25H, T3FE #### [facility] [address] [place] [address] Cortisolon 07-17-2021 Cortisol 7.0 ug/dL Normal [facility] Comment on above: Result Comment: Befo re 10am 4.5-22.7 ug/dL After 5pm 1.7-14.1 ug/dL Performed By: #### T SH5, FT4M #### [facility] [address] [place] [address] #### VD25H, T3FE #### [facility] [address] [place] [address] Hemoglobin AND Hematocriton 07-17-2021 Hematocrit (Bld) [Volume fraction] 30.9 % Low 35.0-47.0 [facility] Comment on above: Performed By: #### C MP3 #### [facility] [address] [place] [address] #### ESR, RFB #### [facility] [address] [place] [address] #### ANA3 #### [facility] [address] [place] [address] Hemoglobin (Bld) [Mass/Vol] 10.4 g/dL Low 11.7-16.0 [facility] Comment on above: Performed By: #### C MP3 #### [facility] [address] [place] [address] #### ESR, RFB #### [facility] [address] [place] [address] #### ANA3 #### [address] [phone] Osmolality,Serumon Osmolality,Serum 260 mosm/kg Low 280-300 [facility] Comment on above: Performed By: #### T SH5, FT4M #### [facility] [address] [place] [address] #### VD25H, T3FE #### [facility] [address] [place] [address] PTH, Intacton 07-17-2021 PTH, Intact 112.7 pg/mL High 8.0-54.0 [facility] Comment on above: Performed By: #### T SH5, FT4M #### [facility] [address] [place] [address] #### VD25H, T3FE #### [facility] [address] [place] [address] Renal Functionon 07-17-2021 Calcium [Mass/Vol] 9.0 mg/dL Normal 8.4-10.4 [facility] Comment on above: Performed By: #### T SH5, FT4M #### [facility] [address] [place] [address] #### VD25H, T3FE #### [facility] [address] [place] [address] Phosphate [Mass/Vol] 4.3 mg/dL Normal 2.5-4.5 [facility] Comment on above: Performed By: #### T , FT4M #### [facility] [address] [place] [address] #### VD25H, T3FE #### [facility] [address] [place] [address] Anion gap [Moles/Vol] 4 mmol/L Normal 3-13 [facility] Comment on above: Performed By: #### T , FT4M #### [facility] [address] [place] [address] #### VD25H, T3FE #### [facility] [address] [place] [address] CO2 [Moles/Vol] 24 mmol/L Normal 22-30 [facility] Comment on above: Performed By: #### T , FT4M #### [facility] [address] [place] [address] #### VD25H, T3FE #### [facility] [address] [place] [address] Creatinine [Mass/Vol] 1.51 mg/dL High 0.52-1.25 [facility] Comment on above: Performed By: #### , FT4 #### [facility] [address] [place] [address] #### VD25H, T3FE #### [facility] [address] [place] [address] GFR/1.73 sq M.predicted among blacks MDRD (S/P/Bld) [Vol rate/Area] 44.8 mL/min/{1.73_m2} Abnormal >60 [facility] Comment on above: Performed By: #### T , FT4 #### [facility] [address] [place] [address] #### VD25H, T3FE #### [facility] [address] [place] [address] GFR/1.73 sq M.predicted among non-blacks MDRD (S/P/Bld) [Vol rate/Area] 38.7 mL/min/{1.73_m2} Abnormal >60 [facility] Comment on above: Result Comment: KDIG O guidelines provide the following GFR categories: Stage GFR(ml/min/1.73 m2) Terms G1 >=90 Normal or high G2 60-89 Mildly decreased* G3a 45-59 Mildly to moderately decreased G3b 30-44 Moderately to severely decreased G4 15-29 Severely decreased G5 <15 Kidney failure *Relative to young adult level. In the absence of evidence of kidney damage, neither GFR category G1 nor G2 fulfill the criteria for CKD. The CKD-EPI equation is validated in individuals 18 years of age and older. Currently the best equation for estimating glomerular filtration rate (GFR) from serum creatinine in children is the Bedside Barber equation. It is less accurate in patients with extremes of muscle mass, restriction of dietary protein, ingestion of creatine, extra-renal metabolism of creatinine, or treatment with medications that affect renal tubular creatinine secretion. Performed By: #### T SH, FT4M #### [facility] [address] [place] [address] #### VD25H, T3FE #### [facility] [address] [place] [address] Glucose [Mass/Vol] 89 mg/dL Normal 70-100 [facility] Comment on above: Performed By: #### T SH, FT4M #### [facility] [address] [place] [address] #### VD25H, T3FE #### [facility] [address] [place] [address] Urea nitrogen [Mass/Vol] 25 mg/dL High 9-20 [facility] Comment on above: Performed By: #### T SH, FT4M #### [facility] [address] [place] [address] #### VD25H, T3FE #### [facility] [address] [place] [address] Albumin [Mass/Vol] 3.5 g/dL Normal 3.5-5.0 [facility] Comment on above: Performed By: #### T SH, FT4M #### [facility] [address] [place] [address] #### VD25H, T3FE #### [facility] [address] [place] [address] Chloride [Moles/Vol] 94 mmol/L Low 98-107 [facility] Comment on above: Performed By: #### T SH5, FT4M #### [facility] [address] [place] [address] #### VD25H, T3FE #### [facility] [address] [place] [address] Potassium [Moles/Vol] 4.4 mmol/L Normal 3.5-5.1 [facility] Comment on above: Performed By: #### T SH, FT4M #### [facility] [address] [place] [address] #### VD25H, T3FE #### [place] [address] [place] [address] Sodium [Moles/Vol] 122 mmol/L Low 135-145 [facility] Comment on above: Performed By: #### T SH, FT4M #### [facility] [address] [place] [address] #### VD25H, T3FE #### [facility] [address] [place] [address] Thyroid Stim. Hormoneon Thyroid Stim. Hormone < 0.015 Low 0.465- 4.68 0 [facility] Comment on above: Performed By: #### T SH, FT4M #### [facility] [address] [place] [address] #### VD25H, T3FE #### [facility] [address] [place] [address] Uric Acidon 07-17-2021 Urate [Mass/Vol] 3.6 mg/dL Normal 3.5-8.5 [facility] Comment on above: Performed By: #### T SH, FT4M #### [facility] [address] [place] [address] #### VD25H, T3FE #### [facility] [address] [place] [address] Vit D 25-OH, Totalon 021 Vit D 25-[place], Total 20 ng/mL Low 30-100 [facility] Comment on above: Result Comment: Ther apy is based on measurement of Total 25- OHD with the following classification levels: Less than 20 ng/mL: Indicative of Vit D deficiency 20-30 ng/mL: Suggests Vit D insufficiency Optimal: Greater than or equal to 30 ng/mL Test performed by fuseSPORT Competitive Immunoassay, measuring Total Vitamin D, not individual fractions. Performed By: #### T SH5, FT4M #### [facility] [facility] [address] [place] [address] #### VD25H, T3FE #### [facility] [address] [place] [address] Creatinine, Random UrineOrde red By: Ewelina Pruett on 01-22-2021 Creatinine (U) [Mass/Vol] 11.8 mg/dL No Range [facility] Work Phone: [phone] FerritinOrdered By: Ewelina nicholas on 01-22-2021 Ferritin [Mass/Vol] 157 ng/mL 8 - 252 ng/mL [facility] Work Phone: [phone] Test Performed by [facility] [facility], [facility] [address] , [place] [address] [facility] Work Phone: [phone] [facility] Work Phone: [phone] Iron and TIBCOrdered By: Ann Pruett on 01-22-2021 Interpretation and review of laboratory results Abnormal [facility] Work Phone: [phone] Iron [Mass/Vol] 62 ug/dL 37 - 170 ug/dL [facility] Work Phone: [phone] Sat 30 % 15 - 50 % [facility] Work Phone: [phone] TIBC 208 ug/dL Low 261 - 497 ug/dL [facility] Work Phone: [phone] Test Performed by [facility] [facility], [facility] [address] [place] [address] [facility] Work Phone: [phone] [facility] Work Phone: [phone] Panel InformationOrdered By: Ewelina Pruett on 01-22-2021 Interpretation and review of laboratory results Abnormal [facility] Work Phone: [phone] Test Performed by [facility], [address] [place], [place] [address] [facility] Work Phone: [phone] [facility] Work Phone: [phone] OsmolalityOrdered By: Ewelina Pruett on 01-22-2021 Interpretation and review of laboratory results Abnormal [facility] Work Phone: [phone] Serum Osmolality 279 mosm/kg Low 280 - 300 mosm/kg [facility] Work Phone: [phone] Test Performed by [employer] [facility], [address] [place], [place] [address] [facility] Work Phone: [phone] [facility] Work Phone: [phone] Osmolality, UrineOrdered By: Ewelina Pruett on 01-22-2021 Interpretation and review of laboratory results Abnormal [facility] Work Phone: [phone] Osmolality, Ur 120 mosm/kg Low 300 - 1000 mosm/kg [facility] Work Phone: [phone] Test Performed by [employer], [address] [place], [place] [address] [facility] Work Phone: [phone] [facility] Work Phone: [phone] PTH, IntactOrdered By: Ewelina Pruett on 01-22-2021 Interpretation and review of laboratory results Abnormal [facility] Work Phone: [phone] Pth Intact 81.2 pg/mL High 15.0 - 63.0 pg/mL [facility] Work Phone: [phone] Test Performed by [employer], [address] [place], [place] [address] [facility] Work Phone: [phone] [facility] Work Phone: [phone] Protein, urine, randomOrdere d By: Ewelina Pruett on 01-22-2021 Protein (U) [Mass/Vol] 56 mg/dL High No Range [employer] Work Phone: [phone] Renal Function PanelOrdered By: Ewelina Pruett on 01-22-2021 Albumin [Mass/Vol] 3.9 g/dL 3.5 - 5.0 g/dL [facility] Work Phone: [phone] Anion gap [Moles/Vol] 7 mmol/L 3 - 13 mmol/L [facility] Work Phone: [phone] Calcium [Mass/Vol] 9.7 mg/dL 8.4 - 10. 4 mg/dL [facility] Work Phone: [phone] Chloride [Moles/Vol] 94 mmol/L Low 98 - 10 7 mmol/L [facility] Work Phone: [phone] CO2 [Moles/Vol] 27 mmol/L 22 - 30 mmol/L [facility] Work Phone: [phone] Creatinine [Mass/Vol] 1.67 mg/dL High 0.52 - 1.25 mg/dL [facility] Work Phone: [phone] EGFR IF NonAfrican [place] 34.3 mL/min Abnormal >60 [facility] Work Phone: [phone] Comment on above: KDIGO guidelines pro vide the following GFR categories: Stage GFR(ml/min/1.73 m2) Terms G1 >=90 Normal or high G2 60-89 Mildly decreased* G3a 45-59 Mildly to moderately decreased G3b 30-44 Moderately to severely decreased G4 15-29 Severely decreased G5 <15 Kidney failure *Relative to young adult level. In the absence of evidence of kidney damage, neither GFR category G1 nor G2 fulfill the criteria for CKD. The CKD-EPI equation is validated in individuals 18 years of age and older. Currently the best equation for estimating glomerular filtration rate (GFR) from serum creatinine in children is the Bedside Barber equation. It is less accurate in patients with extremes of muscle mass, restriction of dietary protein, ingestion of creatine, extra-renal metabolism of creatinine, or treatment with medications that affect renal tubular creatinine secretion. GFR/1.73 sq M.predicted among blacks MDRD (S/P/Bld) [Vol rate/Area] 39.8 mL/min/{1.73_m2} Abnormal >60 [facility] Work Phone: [phone] Glucose [Mass/Vol] 99 mg/dL 70 - 100 mg/dL [facility] Work Phone: [phone] Interpretation and review of laboratory results Abnormal [facility] Work Phone: [phone] Phosphate [Mass/Vol] 4.3 mg/dL 2.5 - 4 .5 mg/dL [facility] Work Phone: [phone] Potassium [Moles/Vol] 5.1 mmol/L 3.5 - 5.1 mmol/L [facility] Work Phone: [phone] Sodium [Moles/Vol] 129 mmol/L Low 135 - 145 mmol/L [facility] Work Phone: [phone] Urea nitrogen (BldV) [Mass/Vol] 36 mg/dL High 7 - 20 mg/dL [facility] Work Phone: [phone] Test Performed by [employer] [facility], [address] , [place], [place] [address] [facility] Work Phone: [phone] [facility] Work Phone: [phone] Sodium, urine, randomOrdered By: Ewelina Pruett on 01-22-2021 Sodium (U) [Moles/Vol] 9 mmol/L Low 30 - 90 mmol/L [facility] Work Phone: [phone] Vitamin D 25 HydroxyOrdered By: Ewelina Pruett on 01-22-2021 Vit D, 25-Hydroxy 40 ng/mL 30 - 100 ng/mL [facility] Work Phone: [phone] Comment on above: Therapy is based on measurement of Total 25-OHD with the following classification levels: Less than 20 ng/mL: Indicative of Vit D deficiency 20-30 ng/mL: Suggests Vit D insufficiency Optimal: Greater than or equal to 30 ng/mL Test performed by [employer] Competitive Immunoassay, measuring Total Vitamin D, not individual fractions. Test Performed by [employer], [address] [place], [place] [address] [facility] Work Phone: [phone] [facility] Work Phone: [phone] Creatinine, Random Urineon 09-03-2019 Creatinine (U) [Mass/Vol] 7.7 mg/dL No Range [facility], [place] Ferritinon 07-04-2020 Ferritin [Mass/Vol] 140 ng/mL 8 - 252 ng/mL [facility] [place], [place] Test Performed by [employer], [address] , [place], [place] [address] [facility] [place] Iron and TIBCon 07-04-2020 Interpretation and review of laboratory results Abnormal [facility] [place] Iron [Mass/Vol] 70 ug/dL 37 - 170 ug/dL [facility] Sat 27 % 15 - 50 % [facility] TIBC 260 ug/dL Low 261 - 497 ug/dL [facility] Test Performed by [facility], [address] [place] Osmolalityon 07-04-2020 Interpretation and review of laboratory results Abnormal [facility] Serum Osmolality 273 mosm/kg Low 280 - 300 mosm/kg [facility] Test Performed by [facility], [address], [place], [place] [address] [facility] Osmolality, Urineon 07-04-20 Interpretation and review of laboratory results Abnormal [facility] Osmolality (U) [Osmolality] 103 mosm/kg Low 300 - 1000 mosm/kg [facility] Test Performed by [facility], [address], [place], [place] [id number] [place] [address] [place] Otheron 07-04-2020 Interpretation and review of laboratory results Abnormal [facility] Test Performed by [facility], [address] [place] PTH, Intacton 07-04-2020 Pth Intact 44.2 pg/mL 15 - 63 pg/mL [facility] Test Performed by [facility], [address], [place], [place] [id number] [place] [address] [place] Protein, urine, randomon Protein (U) [Mass/Vol] 46 mg/dL High No Range [facility] Renal Function Panelon 07-04 Albumin [Mass/Vol] 4.2 g/dL 3.5 - 5 g/dL [facility] Anion gap [Moles/Vol] 10 mmol/L [facility] Calcium [Mass/Vol] 10.0 mg/dL 8.4 - 10. 4 mg/dL [facility] Chloride [Moles/Vol] 95 mmol/L Low 98 - 10 7 mmol/L [facility] [place] CO2 [Moles/Vol] 25 mmol/L 22 - 30 mmol/L [place] Creatinine [Mass/Vol] 1.44 mg/dL High 0.52 - 1.25 mg/dL [place] EGFR IF NonAfrican [place] 41.2 mL/min Abnormal >60 [place] Comment on above: KDIGO guidelines pro vide the following GFR categories: Stage GFR(ml/min/1.73 m2) Terms G1 >=90 Normal or high G2 60-89 Mildly decreased* G3a 45-59 Mildly to moderately decreased G3b 30-44 Moderately to severely decreased G4 15-29 Severely decreased G5 <15 Kidney failure *Relative to young adult level. In the absence of evidence of kidney damage, neither GFR category G1 nor G2 fulfill the criteria for CKD. The CKD-EPI equation is validated in individuals 18 years of age and older. Currently the best equation for estimating glomerular filtration rate (GFR) from serum creatinine in children is the Bedside Barber equation. It is less accurate in patients with extremes of muscle mass, restriction of dietary protein, ingestion of creatine, extra-renal metabolism of creatinine, or treatment with medications that affect renal tubular creatinine secretion. GFR/1.73 sq M predicted among blacks MDRD (S/P/Bld) [Vol rate/Area] 47.8 mL/min/{1.73_m2} Abnormal >60 [place] Glucose [Mass/Vol] 94 mg/dL 70 - 100 mg/dL [place] Interpretation and review of laboratory results Abnormal [place] Phosphate [Mass/Vol] 4.5 mg/dL 2.5 - 4 .5 mg/dL [place] Potassium [Moles/Vol] 4.3 mmol/L 3.5 - 5.1 mmol/L [place] Sodium [Moles/Vol] 131 mmol/L Low 135 - 145 mmol/L [place] Urea nitrogen [Mass/Vol] 22 mg/dL High 7 - 20 mg/dL [place] Test Performed by [facility], [address] , [place] [id number] [place] [address] Sodium, urine, randomon 11-2 Sodium (U) [Moles/Vol] 24 mmol/L Low 30 - 90 mmol/L [facility] [employer], [place] Vitamin D 25 Hydroxyon 07-04 Vit D, 25-Hydroxy 33 ng/mL 30 - 100 ng/mL [facility] [employer] [place], [place] Comment on above: Therapy is based on measurement of Total 25-OHD with the following classification levels: Less than 20 ng/mL: Indicative of Vit D deficiency 20-30 ng/mL: Suggests Vit D insufficiency Optimal: Greater than or equal to 30 ng/mL Test performed by fuseSPORT Competitive Immunoassay, measuring Total Vitamin D, not individual fractions. Test Performed by [facility], [address], [place], [place] [id number] [place] [address] [employer], [place] T3on 04-30-2020 T3, Total 130 ng/dL 97 - 169 ng/dL [facility] [employer] [place] Test Performed by [facility], [address], [place], [place] [id number] [place] [address] [employer] [place] T4, Freeon 04-30-2020 Free T4 [Mass/Vol] 2.57 ng/dL High 0.78 - 2.19 ng/dL [facility] [employer], [place] Interpretation and review of laboratory results Abnormal [facility] [employer] [place] Test Performed by [facility], [address] , [address] [employer], [employer] TSH without Reflexon 020 Interpretation and review of laboratory results Abnormal [facility] [employer], [place] TSH Qn m[IU]/L Low 0.465 - 4.68 u[IU]/mL [facility] [employer] Test Performed by [facility], [address] , [address] [employer], [employer] Creatinine, Random Urineon 0 03-04-2020 Creatinine (U) [Mass/Vol] 15.4 mg/dL No Range [facility] [employer] Hemoglobin and Hematocrit, B loodon 03-04-2020 Hematocrit (Bld) [Volume fraction] 33.3 % Low 35 - 47 % [facility] [employer] Hemoglobin (Bld) [Mass/Vol] 11.5 g/dL Low 11.7 - 16 g/dL [facility] [employer] Interpretation and review of laboratory results Abnormal [facility] [employer] [place] Test Performed by [facility], [address] , [place], [place] [address] [facility], [place] Otheron 03-04-2020 Test Performed by [facility], [address] , [place], [place] [address] [facility], [place] PTH, Intacton 03-04-2020 Interpretation and review of laboratory results Abnormal [place], [place] Pth Intact 76.4 pg/mL High 15 - 63 pg/mL [place] Test Performed by [facility], [address], [place], [place] [address] [place], [place] Protein, urine, randomon Interpretation and review of laboratory results Abnormal [place], [place] Protein (U) [Mass/Vol] 51 mg/dL High No Range Me [facility], [place] Renal Function Panelon 03-04 Albumin [Mass/Vol] 3.9 g/dL 3.5 - 5 g/dL [place], [place] Anion gap [Moles/Vol] 10 mmol/L [place], [place] Calcium [Mass/Vol] 9.4 mg/dL 8.4 - 10. 4 mg/dL [place], [place] Chloride [Moles/Vol] 99 mmol/L 98 - 10 7 mmol/L [place] CO2 [Moles/Vol] 23 mmol/L 22 - 30 mmol/L [place], [place] Creatinine [Mass/Vol] 1.71 mg/dL High 0.52 - 1.25 mg/dL [place], [place] EGFR IF NonAfrican [place] 33.6 mL/min Abnormal >60 [place], [place] Comment on above: KDIGO guidelines pro vide the following GFR categories: Stage GFR(ml/min/1.73 m2) Terms G1 >=90 Normal or high G2 60-89 Mildly decreased* G3a 45-59 Mildly to moderately decreased G3b 30-44 Moderately to severely decreased G4 15-29 Severely decreased G5 <15 Kidney failure *Relative to young adult level. In the absence of evidence of kidney damage, neither GFR category G1 nor G2 fulfill the criteria for CKD. The CKD-EPI equation is validated in individuals 18 years of age and older. Currently the best equation for estimating glomerular filtration rate (GFR) from serum creatinine in children is the Bedside Barber equation. It is less accurate in patients with extremes of muscle mass, restriction of dietary protein, ingestion of creatine, extra-renal metabolism of creatinine, or treatment with medications that affect renal tubular creatinine secretion. GFR/1.73 sq M predicted among blacks MDRD (S/P/Bld) [Vol rate/Area] 38.9 mL/min/{1.73_m2} Abnormal >60 [facility] [place] Glucose [Mass/Vol] 103 mg/dL High 70 - 100 mg/dL [facility] [place] Interpretation and review of laboratory results Abnormal [facility] [place] Phosphate [Mass/Vol] 3.9 mg/dL 2.5 - 4 .5 mg/dL [facility] Potassium [Moles/Vol] 4.3 mmol/L 3.5 - 5.1 mmol/L [facility] [place] Sodium [Moles/Vol] 132 mmol/L Low 135 - 145 mmol/L [facility] Urea nitrogen [Mass/Vol] 15 mg/dL 7 - 20 mg/dL [facility] [place] Test Performed by [facility], [address] , [place] [address] [facility] T3on 01-16-2020 T3, Total 137 ng/dL 97 - 169 ng/dL [facility] [place] Test Performed by [facility], [address] [place], [place] [id number] [place], [place] [address] [place] T4, Freeon 01-16-2020 Free T4 [Mass/Vol] 2.78 ng/dL High 0.78 - 2.19 ng/dL [facility] [place] Interpretation and review of laboratory results Abnormal [facility] [place] Test Performed by [facility], [address] , [address] [place], [place] TSH without Reflexon 020 Interpretation and review of laboratory results Abnormal [facility] [place] TSH Qn m[IU]/L Low 0.465 - 4.68 u[IU]/mL [facility] [place] Test Performed by [facility], [address] , [address] [place], [place] Vitamin D 25 Hydroxyon 01-15 Interpretation and review of laboratory results Abnormal [place], [place] Vit D, 25-Hydroxy 25 ng/mL Low 30 - 100 ng/mL [place], [place] Comment on above: Therapy is based on measurement of Total 25-OHD with the following classification levels: Less than 20 ng/mL: Indicative of Vit D deficiency 20-30 ng/mL: Suggests Vit D insufficiency Optimal: Greater than or equal to 30 ng/mL Test performed by fuseSPORT Competitive Immunoassay, measuring Total Vitamin D, not individual fractions. Test Performed by [facility], [address], [place], [place] [address] [place], [place] CBC Auto Differentialon 05-1 Absolute Baso # 0.0 10*3/uL 0 - 0.2 10*3/uL [facility], [place] Absolute Neut # 1.9 10*3/uL 1.8 - 7 10*3/uL [facility], [place] Basophils/100 WBC (Bld) 0.4 % 0 - 2 % [place] Eosinophils (Bld) [#/Vol] 0.1 10*3/uL 0 - 0.5 10*3/uL [facility], [place] Eosinophils/100 WBC (Bld) 2.7 % 1 - 6 % [facility], [place] Erythrocyte distribution width (RBC) [Ratio] 13.6 % 11.5 - 14.5 % [facility], [place] Granulocytes/100 WBC (Bld) 41.8 % 40 - 80 % [facility], [place] Hematocrit (Bld) [Volume fraction] 31.9 % Low 35 - 47 % [facility], [place] Hemoglobin (Bld) [Mass/Vol] 10.9 g/dL Low 11.7 - 16 g/dL [facility], [place] Lymphocytes (Bld) [#/Vol] 2.0 10*3/uL 1 - 4.3 10*3/uL [facility], [place] Lymphocytes/100 WBC (Bld) 44.9 % High 20 - 40 % [facility], [place] MCH (RBC) [Entitic mass] 32.5 pg 26 - 34 pg [facility] [place], [place] MCHC (RBC) [Mass/Vol] 34.2 % 32 - 36 % [place], [place] MCV (RBC) [Entitic vol] 95.0 fL 79 - 98 fL [place], [place] Monocytes (Bld) [#/Vol] 0.5 10*3/uL 0 - 0.8 10*3/uL [place], [place] Monocytes/100 WBC (Bld) 10.2 % High 2 - 10 % [place], [place] Platelet mean volume (Bld) [Entitic vol] 8.0 fL 7.4 - 10.4 fL [place], [place] Platelets (Bld) [#/Vol] 300 10*3/uL 140 - 440 10*3/uL [place], [place] RBC (Bld) [#/Vol] 3.36 10*6/uL Low 3.8 - 5.2 10*6/uL [place], [place] WBC (Bld) [#/Vol] 4.4 10*3/uL 3.6 - 10.7 10*3/uL [place], [place] Comprehensive Metabolic Pane nestor 12-31-2019 Albumin [Mass/Vol] 3.8 g/dL 3.5 - 5 g/dL [place], [place] ALP [Catalytic activity/Vol] 70 U/L 38 - 126 U/L [place], [place] ALT [Catalytic activity/Vol] 14 U/L 0 - 34 U/L [place], [place] Comment on above: The ALT test is perf ormed by an updated assay method. Please note that the reference intervals have been changed and are now sex specific. Anion gap [Moles/Vol] 10 mmol/L [place], [place] AST [Catalytic activity/Vol] 20 U/L 15 - 46 U/L [place], [place] Bilirubin Ql (U) 0.2 mg/dL 0.2 - 1.3 mg/dL [place], [place] Calcium [Mass/Vol] 9.9 mg/dL 8.4 - 10. 4 mg/dL [place], [place] Chloride [Moles/Vol] 100 mmol/L 98 - 10 7 mmol/L [place], [place] CO2 [Moles/Vol] 26 mmol/L 22 - 30 mmol/L [place], [place] Creatinine [Mass/Vol] 1.8 mg/dL High 0.52 - 1.25 mg/dL [place], [place] EGFR IF NonAfrican [place] 31.6 mL/min Abnormal >60 [place], [place] Comment on above: KDIGO guidelines pro vide the following GFR categories: Stage GFR(ml/min/1.73 m2) Terms G1 >=90 Normal or high G2 60-89 Mildly decreased* G3a 45-59 Mildly to moderately decreased G3b 30-44 Moderately to severely decreased G4 15-29 Severely decreased G5 <15 Kidney failure *Relative to young adult level. In the absence of evidence of kidney damage, neither GFR category G1 nor G2 fulfill the criteria for CKD. The CKD-EPI equation is validated in individuals 18 years of age and older. Currently the best equation for estimating glomerular filtration rate (GFR) from serum creatinine in children is the Bedside Barber equation. It is less accurate in patients with extremes of muscle mass, restriction of dietary protein, ingestion of creatine, extra-renal metabolism of creatinine, or treatment with medications that affect renal tubular creatinine secretion. GFR/1.73 sq M predicted among blacks MDRD (S/P/Bld) [Vol rate/Area] 36.6 mL/min/{1.73_m2} Abnormal >60 [place], [place] Glucose [Mass/Vol] 98 mg/dL 70 - 100 mg/dL [place], [place] Potassium [Moles/Vol] 4.7 mmol/L 3.5 - 5.1 mmol/L [place], [place] Protein [Mass/Vol] 6.7 g/dL 6.3 - 8.2 g/dL [place], [place] Sodium [Moles/Vol] 136 mmol/L 135 - 145 mmol/L [place], [place] Urea nitrogen [Mass/Vol] 23 mg/dL High 7 - 20 mg/dL [place], [place] Otheron 12-31-2019 Interpretation and review of laboratory results Abnormal [place] Test Performed by [facility], [address] , [place], [place] [address] [place], [place] Osmolalityon 10-22-2019 Serum Osmolality 285 mosm/kg 280 - 300 mosm/kg [place], [place] Osmolality, Urineon 10-22-19 20 Interpretation and review of laboratory results Abnormal [facility] [place] Osmolality (U) [Osmolality] 125 mosm/kg Low 300 - 1000 mosm/kg [facility]- [place] Otheron 10-22-2019 Test Performed by [facility], [address], [address]- [place], [place] Sodium, urine, randomon Sodium (U) [Moles/Vol] 13 mmol/L No Range Me [facility] [place] Test Performed by [facility], [address] , [address]- [place], [place] Ferritinon 10-04-2019 Ferritin [Mass/Vol] 207 ng/mL 8 - 252 ng/mL [facility]- [place] Test Performed by [facility], [address] , [address], [place] Hemoglobin and Hematocrit, B loodon 10-04-2019 Hematocrit (Bld) [Volume fraction] 34.2 % Low 35 - 47 % [facility]- [place], [place] Hemoglobin (Bld) [Mass/Vol] 11.6 g/dL Low 11.7 - 16 g/dL [facility]- [place], [place] Interpretation and review of laboratory results Abnormal [facility], [place] Test Performed by [facility], [address] , [address], [place] Iron and TIBCon 10-04-2019 Interpretation and review of laboratory results Abnormal [facility], [place] Iron [Mass/Vol] 66 ug/dL 37 - 170 ug/dL [facility], [place] Sat 26 % 15 - 50 % [facility] TIBC 256 ug/dL Low 261 - 497 ug/dL [facility] Test Performed by [facility], [address] , [address] [place], [place] Otheron 10-04-2019 Test Performed by [facility], [address], [address]- [place], [place] PTH, Intacton 10-04-2019 Pth Intact 57.3 pg/mL 15 - 63 pg/mL [facility]- [place] Renal Function Panelon 10-04 Albumin [Mass/Vol] 3.9 g/dL 3.5 - 5 g/dL [place], [place] Anion gap [Moles/Vol] 11 mmol/L [place], [place] Calcium [Mass/Vol] 9.4 mg/dL 8.4 - 10. 4 mg/dL [place], [place] Chloride [Moles/Vol] 87 mmol/L Low 98 - 10 7 mmol/L [place], [place] CO2 [Moles/Vol] 26 mmol/L 22 - 30 mmol/L [place], [place] Creatinine [Mass/Vol] 1.48 mg/dL High 0.52 - 1.25 mg/dL [place], [place] EGFR IF NonAfrican [place] 36.9 mL/min >60 [place], [place] Comment on above: Source- MDRD equatio n with creatinine calibration to IDMS(NKDEP) eGFR not recommended for drug dose adjustment GFR/1.73 sq M predicted among blacks MDRD (S/P/Bld) [Vol rate/Area] 44.8 mL/min/{1.73_m2} >60 [place], [place] Glucose [Mass/Vol] 101 mg/dL High 70 - 100 mg/dL [place], [place] Interpretation and review of laboratory results Abnormal [place], [place] Phosphate [Mass/Vol] 3.8 mg/dL 2.5 - 4 .5 mg/dL [place], [place] Potassium [Moles/Vol] 4.0 mmol/L 3.5 - 5.1 mmol/L [place], [place] Sodium [Moles/Vol] 124 mmol/L Low 135 - 145 mmol/L [place], [place] Urea nitrogen [Mass/Vol] 19 mg/dL 7 - 20 mg/dL [place], [place] Test Performed by [facility], [facility] [address] , [place], [place] [id number] [place] [address] Vitamin D 25 Hydroxyon 10-04 Vit D, 25-Hydroxy 31 ng/mL 30 - 100 ng/mL [place], [place] Comment on above: Therapy is based on measurement of Total 25-OHD with the following classification levels: Less than 20 ng/mL: Indicative of Vit D deficiency 20-30 ng/mL: Suggests Vit D insufficiency Optimal: Greater than or equal to 30 ng/mL Test performed by [employer] Competitive Immunoassay, measuring Total Vitamin D, not individual fractions. T3, Totalon 09-06-2019 T3, Total 0.8 ng/mL Normal 0.6-1.8 [facility] Comment on above: Performed By: #### T 3 #### [place] [address] Thyro. Peroxidase Abon 09-06 TPO Ab Qn 33.8 IU/ml Normal 0.0-60.0 [facility] Comment on above: Performed By: #### T PAB #### [place] [address] Thyroglobulin Abon 0 Thyroglobulin Ab Qn [IU]/mL Normal 0.0-60.0 [facility] Comment on above: Performed By: #### T GAB2 #### [place] [address] Total 25-OH Vitamin Don 08-16 Total 25-OH Vitamin D 54.2 ng/mL Normal 30.0-100.0 [facility] Comment on above: Performed By: #### 2 5VD1 #### [place] [address] Free Thyroxineon 09-05-2019 Free T4 [Mass/Vol] 1.67 ng/dL High 0.76-1.46 [facility] Comment on above: Performed By: #### F T4 #### [place] [address] TSH, 3rd generationon 2019 TSH, 3rd generation 0.012 uIU/mL Low 0.358-3. 74 0 [facility] Comment on above: Performed By: #### T SH3 #### [place] [address] MRI Lumbar Spine WO Contrast on 07-16-2019 Patient Name: JESSY WEN ---MRI--- Exam Date/Time 07/16/2019 13:48:23 EST Exam MRI Spine Lumbar w/o Contrast Ordering Physician NATHAN TYLER V Accession Number [id number] CPT4 Codes 77797 () Reason For Exam spondylolisthesis of lumbar Report EXAMINATION: MRI of the lumbar spine without contrast. COMPARISON: 01/27/2017. REASON FOR STUDY: Lumbar spondylolisthesis. TECHNIQUE: Axial and sagittal spin-echo T1 and T2-weighted as well as STIR images were obtained. FINDINGS: NOMENCLATURE: Five lumbar type vertebrae for the purposes of this report. DISC SPACES: T12-L1: Normal. L1-L2: Moderate loss of disc height. Diffuse bulge. L2-L3, L3-L4: Normal. L4-L5: Mild loss of disc height. Mild diffuse bulge. L5-S1: Normal. SPINAL CANAL AND NEURAL FORAMINA: Spinal Canal: No appreciable narrowing. Neural foramina: No significant findings. Conus: Terminates at L1 and shows no abnormality. Normal course and distribution of cauda equina. VERTEBRAE: Vertebral bodies, pedicles, facets and posterior arches appear intact. No significant marrow signal alteration. There is a mild left convex curvature. Hypertrophic changes are observed at the L4-L5 and L5-S1 facet joints with associated effusions. SOFT TISSUES: No significant findings. CONCLUSION(S): 1. Moderate degenerative disc disease at L1-L2 with attendant diffuse bulge. 2. Mild degenerative disc disease and diffuse bulge at L4-L5. 3. Severe bilateral L4-L5 and L5-S1 degenerative facet arthropathy with attendant effusions. Report Dictated on --- Final --- Dictating Physician: MD SANCHEZ B NELSON Signed Date and Time: 07/16/2019 3:22 pm Signed by: MD SANCHEZ B NELSON Transcribed Date and Time: 07/16/2019 3:23 [place], [place], [facility] Incoming Radiology Results From [facility] - 07/16/2019 3:23 PM EST Patient Name: JESSY MCKEON ---MRI--- Exam Date/Time 07/16/2019 13:48:23 EST Exam MRI Spine Lumbar w/o Contrast Ordering Physician NATHAN TYLER V Accession Number [id number] CPT4 Codes 69583 () Reason For Exam spondylolisthesis of lumbar Report EXAMINATION: MRI of the lumbar spine without contrast. COMPARISON: 01/27/2017. REASON FOR STUDY: Lumbar spondylolisthesis. TECHNIQUE: Axial and sagittal spin-echo T1 and T2-weighted as well as STIR images were obtained. FINDINGS: NOMENCLATURE: Five lumbar type vertebrae for the purposes of this report. DISC SPACES: T12-L1: Normal. L1-L2: Moderate loss of disc height. Diffuse bulge. L2-L3, L3-L4: Normal. L4-L5: Mild loss of disc height. Mild diffuse bulge. L5-S1: Normal. SPINAL CANAL AND NEURAL FORAMINA: Spinal Canal: No appreciable narrowing. Neural foramina: No significant findings. Conus: Terminates at L1 and shows no abnormality. Normal course and distribution of cauda equina. VERTEBRAE: Vertebral bodies, pedicles, facets and posterior arches appear intact. No significant marrow signal alteration. There is a mild left convex curvature. Hypertrophic changes are observed at the L4-L5 and L5-S1 facet joints with associated effusions. SOFT TISSUES: No significant findings. CONCLUSION(S): 1. Moderate degenerative disc disease at L1-L2 with attendant diffuse bulge. 2. Mild degenerative disc disease and diffuse bulge at L4-L5. 3. Severe bilateral L4-L5 and L5-S1 degenerative facet arthropathy with attendant effusions. Report Dictated on --- Final --- Dictating Physician: MD SANCHEZ B NELSON Signed Date and Time: 07/16/2019 3:22 pm Signed by: MD SANCHEZ B NELSON Transcribed Date and Time: 07/16/2019 3:23 [place], [place] Basic Metabolic Panelon 10-1 Anion gap [Moles/Vol] 11 mmol/L [place], [place] Calcium [Mass/Vol] 10.3 mg/dL 8.4 - 10. 4 mg/dL [place], [place] Chloride [Moles/Vol] 94 mmol/L Low 98 - 10 7 mmol/L [place] CO2 [Moles/Vol] 29 mmol/L 22 - 30 mmol/L [place], [place] Creatinine [Mass/Vol] 1.7 mg/dL High 0.52 - 1.25 mg/dL [place], [place] EGFR IF NonAfrican [place] 31.5 mL/min >60 [place], [place] Comment on above: Source- MDRD equatio n with creatinine calibration to IDMS(NKDEP) eGFR not recommended for drug dose adjustment GFR/1.73 sq M predicted among blacks MDRD (S/P/Bld) [Vol rate/Area] 38.2 mL/min/{1.73_m2} >60 [place], [place] Glucose [Mass/Vol] 87 mg/dL 70 - 100 mg/dL [place], [place] Interpretation and review of laboratory results Abnormal [place], [place] Potassium [Moles/Vol] 4.8 mmol/L 3.5 - 5.1 mmol/L [place], [place] Sodium [Moles/Vol] 134 mmol/L Low 135 - 145 mmol/L [place], [place] Urea nitrogen [Mass/Vol] 28 mg/dL High 7 - 20 mg/dL [place] Test Performed by [facility], [address] [place], [place] [address] , [address] CBC Auto Differentialon 05-15 Absolute Baso # 0.0 10*3/uL 0 - 0.2 10*3/uL [place], [place] Absolute Neut # 2.2 10*3/uL 1.8 - 7 10*3/uL [place], [place] Basophils/100 WBC (Bld) 0.4 % 0 - 2 % [place], [place] Eosinophils (Bld) [#/Vol] 0.2 10*3/uL 0 - 0.5 10*3/uL [place], [place] Eosinophils/100 WBC (Bld) 2.8 % 1 - 6 % [place] Erythrocyte distribution width (RBC) [Ratio] 13.5 % 11.5 - 14.5 % [place] Granulocytes/100 WBC (Bld) 38.9 % Low 40 - 80 % [place], [place] Hematocrit (Bld) [Volume fraction] 34.1 % Low 35 - 47 % [place], [place] Hemoglobin (Bld) [Mass/Vol] 11.8 g/dL 11.7 - 16 g/dL [place], [place] Interpretation and review of laboratory results Abnormal [place], [place] Lymphocytes (Bld) [#/Vol] 2.7 10*3/uL 1 - 4.3 10*3/uL [place], [place] Lymphocytes/100 WBC (Bld) 48.1 % High 20 - 40 % [place] MCH (RBC) [Entitic mass] 32.0 pg 26 - 34 pg [place] MCHC (RBC) [Mass/Vol] 34.6 % 32 - 36 % [place] MCV (RBC) [Entitic vol] 92.6 fL 79 - 98 fL [place], [place] Monocytes (Bld) [#/Vol] 0.6 10*3/uL 0 - 0.8 10*3/uL [place], [place] Monocytes/100 WBC (Bld) 9.8 % 2 - 10 % [place] Platelet mean volume (Bld) [Entitic vol] 7.3 fL Low 7.4 - 10.4 fL [place], [place] Platelets (Bld) [#/Vol] 295 10*3/uL 140 - 440 10*3/uL [place] RBC (Bld) [#/Vol] 3.68 10*6/uL Low 3.8 - 5.2 10*6/uL [place] WBC (Bld) [#/Vol] 5.6 10*3/uL 3.6 - 10.7 10*3/uL [place] Test Performed by [facility], [facility] , [address] Renal Function Panelon 03-27 Albumin [Mass/Vol] 3.9 g/dL 3.5 - 5 g/dL [place] Anion gap [Moles/Vol] 11 mmol/L [place] Calcium [Mass/Vol] 10.0 mg/dL 8.4 - 10. 4 mg/dL [place] Chloride [Moles/Vol] 90 mmol/L Low 98 - 10 7 mmol/L [place] CO2 [Moles/Vol] 28 mmol/L 22 - 30 mmol/L [place] Creatinine [Mass/Vol] 1.52 mg/dL High 0.52 - 1.25 mg/dL [place] EGFR IF NonAfrican [place] 35.9 mL/min >60 [place], [place] Comment on above: Source- MDRD equatio n with creatinine calibration to IDMS(NKDEP) eGFR not recommended for drug dose adjustment GFR/1.73 sq M predicted among blacks MDRD (S/P/Bld) [Vol rate/Area] 43.5 mL/min/{1.73_m2} >60 [place], [place] Glucose [Mass/Vol] 96 mg/dL 70 - 100 mg/dL [place] Interpretation and review of laboratory results Abnormal [place] Phosphate [Mass/Vol] 3.5 mg/dL 2.5 - 4 .5 mg/dL [place] Potassium [Moles/Vol] 4.5 mmol/L 3.5 - 5.1 mmol/L [place] Sodium [Moles/Vol] 130 mmol/L Low 135 - 145 mmol/L [place] Urea nitrogen [Mass/Vol] 17 mg/dL 7 - 20 mg/dL [place] Test Performed by [facility], [facility] [address] , [address] Vital Signs Date Time Vital Sign Value Performing Clinician Raymundo weaver 03-15-2025 08:33-0400 Body temperature 97.81 [degF] [place] [facility] 03-15-2025 08:33-0400 Diastolic blood pressure 73 mm[Hg] [email or web address] DO Work Phone: [employer] 03-15-2025 08:33-0400 Heart rate 50 /min [place] Work Phone: [employer] 03-15-2025 08:33-0400 Respiratory rate 16 /min [email or web address] DO Work Phone: [employer] 03-15-2025 08:33-0400 SaO2% (BldA) [Mass fraction] 100 % [email or web address] DO Work Phone: [employer] 03-15-2025 08:33-0400 Systolic blood pressure 124 mm[Hg] Sarah Marina DO Work Phone: [employer] 03-15-2025 04:53-0400 Body mass index (BMI) [Ratio] 40.74 kg/m2 Sarah Marina DO Work Phone: [facility] 03-15-2025 04:53-0400 Body weight 104.33 kg Sarah Marina DO Work Phone: [employer] 03-08-2025 12:10-0400 Body height 160 cm Sarah Marina DO Work Phone: [employer] 03-06-2025 09:44-0400 Diastolic blood pressure 86 mm[Hg] Jorge Roth MD Work Phone: [employer] 03-06-2025 09:44-0400 Heart rate 97 /min Jorge Roth MD Work Phone: [employer] 03-06-2025 09:44-0400 Respiratory rate 16 /min Jorge Roth MD Work Phone: [employer] 03-06-2025 09:44-0400 SaO2% (BldA) [Mass fraction] 99 % Jorge Roth MD Work Phone: [employer] 03-06-2025 09:44-0400 Systolic blood pressure 143 mm[Hg] Jorge Roth MD Work Phone: [employer] 03-06-2025 05:39-0400 Body temperature 98.6 [degF] Jorge Roth MD Work Phone: [facility] 01-15-2025 05:04-0400 Body temperature 97.11 [degF] Pati Duenas MD Work Phone: [facility] 01-15-2025 05:04-0400 Diastolic blood pressure 56 mm[Hg] Pati Duenas MD Work Phone: [facility] 01-15-2025 05:04-0400 Heart rate 74 /min Pati Duenas MD Work Phone: [facility] [employer] 01-15-2025 05:04-0400 Respiratory rate 16 /min Pati Dueans MD Work Phone: [facility] [employer] 01-15-2025 05:04-0400 SaO2% (BldA) [Mass fraction] 96 % Pati Duenas MD Work Phone: [facility] [employer] 01-15-2025 05:04-0400 Systolic blood pressure 112 mm[Hg] Pati Duenas MD Work Phone: [facility] [employer] 01-08-2025 12:06-0400 Body mass index (BMI) [Ratio] 45.75 kg/m2 Pati Duenas MD Work Phone: [facility] [employer] 01-08-2025 12:06-0400 Body weight 117.12 kg Pati Duenas MD Work Phone: [facility] [employer] 12-31-2024 07:08-0400 Body height 160 cm Pati Duenas MD Work Phone: [facility] 12-30-2024 21:22-0400 SaO2% (BldA) [Mass fraction] 99.2 % Pati Duenas MD Work Phone: [facility] 12-29-2024 20:37-0400 Body height 160 cm Pat Quintanillay DO Work Phone: [facility] [employer] 12-29-2024 20:37-0400 Body mass index (BMI) [Ratio] 44.29 kg/m2 Pat Nunezffey DO Work Phone: [facility] 12-29-2024 20:37-0400 Body temperature 98.4 [degF] Pat Skiffey DO Work Phone: [facility] 12-29-2024 20:37-0400 Body weight 113.4 kg Pat Quintanillay DO Work Phone: [facility] 12-29-2024 20:37-0400 Diastolic blood pressure 71 mm[Hg] Pat Nunezffey DO Work Phone: [facility] [employer] 12-29-2024 20:37-0400 Heart rate 86 /min Pat Nunezffey DO Work Phone: [facility] [employer] 12-29-2024 20:37-0400 Respiratory rate 19 /min Pat Nunezffey DO Work Phone: [facility] [employer] 12-29-2024 20:37-0400 SaO2% (BldA) [Mass fraction] 100 % Pat Prasad DO Work Phone: [facility] [employer] 12-29-2024 20:37-0400 Systolic blood pressure 159 mm[Hg] Pat Quintanillay DO Work Phone: [facility] [employer] 12-28-2024 21:45-0400 Body height 160 cm Jess Patton MD Work Phone: [facility] [employer] 12-28-2024 21:45-0400 Body mass index (BMI) [Ratio] 42.51 kg/m2 Jess Patton MD Work Phone: [facility] [employer] 12-28-2024 21:45-0400 Body weight 108.86 kg Jess Patton MD Work Phone: [facility] [employer] 12-28-2024 20:37-0400 Body temperature 97.81 [degF] Jess Patotn MD Work Phone: [facility] [employer] 12-28-2024 20:37-0400 Diastolic blood pressure 84 mm[Hg] Jess Patton MD Work Phone: [facility] [employer] 12-28-2024 20:37-0400 Heart rate 74 /min Jess Patton MD Work Phone: [facility] [employer] 12-28-2024 20:37-0400 Respiratory rate 20 /min Jess Patton MD Work Phone: [facility] [employer] 12-28-2024 20:37-0400 SaO2% (BldA) [Mass fraction] 97 % Jess Patton MD Work Phone: [facility] [employer] 12-28-2024 20:37-0400 Systolic blood pressure 142 mm[Hg] Jess Patton MD Work Phone: [facility] [employer] 12-28-2024 07:23-0400 Heart rate 70 /min Arslan Kirkland MD Work Phone: [facility] [employer] 12-28-2024 07:23-0400 Respiratory rate 16 /min Arslan Kirkland MD Work Phone: [facility] [employer] 12-28-2024 07:23-0400 SaO2% (BldA) [Mass fraction] 99 % Arslan Kirkland MD Work Phone: [facility] [employer] 12-28-2024 06:39-0400 Diastolic blood pressure 68 mm[Hg] Arslan Kirkland MD Work Phone: [facility] [employer] 12-28-2024 06:39-0400 Systolic blood pressure 129 mm[Hg] Arslan Kirkland MD Work Phone: [facility] [employer] 12-28-2024 05:14-0400 Body temperature 98.2 [degF] Arslan Kirkland MD Work Phone: [facility] [employer] 12-25-2024 16:07-0400 Diastolic blood pressure 83 mm[Hg] Jess Patton MD Work Phone: [facility] [employer] 12-25-2024 16:07-0400 Heart rate 81 /min Jess Patton MD Work Phone: [facility] [employer] 12-25-2024 16:07-0400 Respiratory rate 24 /min Jess Patton MD Work Phone: [facility] [employer] 12-25-2024 16:07-0400 SaO2% (BldA) [Mass fraction] 100 % Jess Patton MD Work Phone: [facility] [employer] 12-25-2024 16:07-0400 Systolic blood pressure 106 mm[Hg] Jess Patton MD Work Phone: [facility] [employer] 12-25-2024 10:21-0400 Body height 160 cm Jess Patton MD Work Phone: [facility] [employer] 12-25-2024 10:21-0400 Body mass index (BMI) [Ratio] 53.14 kg/m2 Jess Patton MD Work Phone: [facility] [employer] 12-25-2024 10:21-0400 Body temperature 97.7 [degF] Jess Patton MD Work Phone: [facility] [employer] 12-25-2024 10:21-0400 Body weight 136.08 kg Jess Patton MD Work Phone: [facility] [employer] 11-15-2024 10:59-0400 Diastolic blood pressure 70 mm[Hg] Arslan Kirkland MD Work Phone: [facility] [employer] 11-15-2024 10:59-0400 Heart rate 70 /min Arslan Kirkland MD Work Phone: [facility] [employer] 11-15-2024 10:59-0400 Respiratory rate 16 /min Arslan Kirkland MD Work Phone: [facility] [employer] 11-15-2024 10:59-0400 SaO2% (BldA) [Mass fraction] 99 % Arslan Kirkland MD Work Phone: [facility] [employer] 11-15-2024 10:59-0400 Systolic blood pressure 125 mm[Hg] Arslan Kirkland MD Work Phone: [facility] [employer] 11-15-2024 06:07-0400 Body height 160 cm Arslan Kirkland MD Work Phone: [facility] [employer] 11-15-2024 06:07-0400 Body mass index (BMI) [Ratio] 53.14 kg/m2 Arslan Kirkland MD Work Phone: [facility] [employer] 11-15-2024 06:07-0400 Body temperature 98.49 [degF] Arslan Kirkland MD Work Phone: [facility] [employer] 11-15-2024 06:07-0400 Body weight 136.08 kg Arslan Kirkland MD Work Phone: [facility] [employer] 11-03-2024 05:12-0400 Diastolic blood pressure 83 mm[Hg] Javad Abrahamya DO Work Phone: [facility] 11-03-2024 05:12-0400 Heart rate 65 /min Javad Abrahamya DO Work Phone: [facility] 11-03-2024 05:12-0400 Respiratory rate 20 /min Javad Abrahamya DO Work Phone: [facility] [employer] 11-03-2024 05:12-0400 SaO2% (BldA) [Mass fraction] 96 % Javad Abrahamya DO Work Phone: [facility] 11-03-2024 05:12-0400 Systolic blood pressure 146 mm[Hg] Javad Abrahamya DO Work Phone: [facility] 11-03-2024 02:13-0400 Body height 160 cm Javad Abrahamya DO Work Phone: [facility] [employer] 11-03-2024 02:13-0400 Body mass index (BMI) [Ratio] 53.14 kg/m2 Javad Lees DO Work Phone: [facility] 11-03-2024 02:13-0400 Body temperature 97.2 [degF] Javad Lees DO Work Phone: [facility] 11-03-2024 02:13-0400 Body weight 136.08 kg Javad Lees DO Work Phone: [facility] 09-18-2024 13:24-0500 Body height 165.1 cm Edith Pierce MD Work Phone: [facility] 09-18-2024 13:24-0500 Body mass index (BMI) [Ratio] 45.26 kg/m2 Edith Pierce MD Work Phone: [facility] 09-18-2024 13:24-0500 Body temperature 97 [degF] Edith Pierce MD Work Phone: [facility] 09-18-2024 13:24-0500 Body weight 123.38 kg Edith Pierce MD Work Phone: [facility] [employer] 09-18-2024 13:24-0500 Diastolic blood pressure 77 mm[Hg] Edith Pierce MD Work Phone: [facility] [employer] 09-18-2024 13:24-0500 Heart rate 67 /min Edith Pierce MD Work Phone: [facility] [employer] 09-18-2024 13:24-0500 Systolic blood pressure 126 mm[Hg] Edith Pierce MD Work Phone: [facility] [employer] 08-10-2024 10:55-0500 Body temperature 97.3 [degF] Jess Patton MD Work Phone: [facility] [employer] 08-10-2024 10:55-0500 Diastolic blood pressure 58 mm[Hg] Jess Patton MD Work Phone: [facility] [employer] 08-10-2024 10:55-0500 Heart rate 62 /min Jess Patton MD Work Phone: [facility] [employer] 08-10-2024 10:55-0500 Respiratory rate 16 /min Jess Patton MD Work Phone: [facility] [employer] 08-10-2024 10:55-0500 SaO2% (BldA) [Mass fraction] 100 % Jess Patton MD Work Phone: [facility] [employer] 08-10-2024 10:55-0500 Systolic blood pressure 121 mm[Hg] Jess Patton MD Work Phone: [facility] [employer] 08-10-2024 03:59-0500 Body mass index (BMI) [Ratio] 43.84 kg/m2 Jess Patton MD Work Phone: [facility] [employer] 08-10-2024 03:59-0500 Body weight 119.5 kg Jess Patton MD Work Phone: [facility] [employer] 08-03-2024 22:31-0500 Body height 165.1 cm Jess Patton MD Work Phone: [facility] [employer] 08-01-2024 14:03-0500 Body temperature 98.2 [degF] Edith Pierce MD Work Phone: [facility] 08-01-2024 14:03-0500 Diastolic blood pressure 79 mm[Hg] Edith Pierce MD Work Phone: [facility] 08-01-2024 14:03-0500 Heart rate 72 /min Edith Pierce MD Work Phone: [facility] [employer] 08-01-2024 14:03-0500 Respiratory rate 18 /min Edith Pierce MD Work Phone: [facility] 08-01-2024 14:03-0500 SaO2% (BldA) [Mass fraction] 97 % Edith Pierce MD Work Phone: [facility] 08-01-2024 14:03-0500 Systolic blood pressure 133 mm[Hg] Edith Pierce MD Work Phone: [facility] [employer] 07-04-2024 07:48-0500 Body temperature 98.2 [degF] Sarah Duran MD Work Phone: [facility] [employer] 07-04-2024 07:48-0500 Diastolic blood pressure 72 mm[Hg] Sarah Duran MD Work Phone: [facility] 07-04-2024 07:48-0500 Heart rate 64 /min Sarah Duran MD Work Phone: [facility] [employer] 07-04-2024 07:48-0500 Respiratory rate 17 /min Sarah Duran MD Work Phone: [facility] 07-04-2024 07:48-0500 SaO2% (BldA) [Mass fraction] 97 % Sarah Duran MD Work Phone: [facility] [employer] 07-04-2024 07:48-0500 Systolic blood pressure 109 mm[Hg] Sarah Duran MD Work Phone: [facility] [employer] 06-28-2024 11:22-0500 Body mass index (BMI) [Ratio] 50.41 kg/m2 Sarah Duran MD Work Phone: [facility] [employer] 06-28-2024 11:22-0500 Body weight 125.01 kg Sarah Duran MD Work Phone: [facility] [employer] 06-14-2024 14:00-0400 Body mass index (BMI) [Ratio] 50.48 kg/m2 Familia Jeronimo MD Work Phone: [facility] [employer] 06-14-2024 14:00-0400 Body temperature 98.2 [degF] Familia Jeronimo MD Work Phone: [facility] [employer] 06-14-2024 14:00-0400 Body weight 125.19 kg Familia Jeronimo MD Work Phone: [facility] [employer] 06-14-2024 14:00-0400 Diastolic blood pressure 85 mm[Hg] Familia Jeronimo MD Work Phone: [facility] [employer] 06-14-2024 14:00-0400 Heart rate 78 /min Familia Jeronimo MD Work Phone: [facility] [employer] 06-14-2024 14:00-0400 SaO2% (BldA) [Mass fraction] 96 % Familia Jeronimo MD Work Phone: [facility] [employer] 06-14-2024 14:00-0400 Systolic blood pressure 135 mm[Hg] Familia Jeronimo MD Work Phone: [facility] [employer] 09-04-2023 07:50-0500 Diastolic blood pressure 58 mm[Hg] Lilia Beard MD Work Phone: [facility] [employer] 09-04-2023 07:50-0500 Heart rate 67 /min Lilia Beard MD Work Phone: [facility] [employer] 01-21-2024 07:50-0500 Respiratory rate 16 /min Lilia Beard MD Work Phone: [facility] 09-04-2023 07:50-0500 SaO2% (BldA) [Mass fraction] 100 % Lilia Beard MD Work Phone: [facility] [employer] 09-04-2023 07:50-0500 Systolic blood pressure 148 mm[Hg] Lilia Beard MD Work Phone: [facility] [employer] 09-04-2023 03:51-0500 Body mass index (BMI) [Ratio] 44.81 kg/m2 Lilia Beard MD Work Phone: [facility] 09-04-2023 03:51-0500 Body temperature 98.71 [degF] Lilia Beard MD Work Phone: [facility] [employer] 09-04-2023 03:51-0500 Body weight 111.13 kg Lilia Beard MD Work Phone: [facility] [employer] 08-26-2023 01:18-0500 Diastolic blood pressure 74 mm[Hg] Theresa Briggs MD Work Phone: [facility] 08-26-2023 01:18-0500 Heart rate 68 /min Theresa Briggs MD Work Phone: [facility] 08-26-2023 01:18-0500 Respiratory rate 1 /min Theresa Briggs MD Work Phone: [facility] 08-26-2023 01:18-0500 SaO2% (BldA) [Mass fraction] 99 % Theresa Briggs MD Work Phone: [facility] 08-26-2023 01:18-0500 Systolic blood pressure 133 mm[Hg] Theresa Briggs MD Work Phone: [facility] 08-25-2023 15:57-0500 Body temperature 98.01 [degF] Theresa Briggs MD Work Phone: [facility] 06-20-2023 16:44-0500 Diastolic blood pressure 100 mm[Hg] Edith Pierce MD Work Phone: [facility] [employer] 06-20-2023 16:44-0500 Systolic blood pressure 136 mm[Hg] Edith Pierce MD Work Phone: [facility] [employer] 06-20-2023 16:08-0500 Body height 157.5 cm Edith Pierce MD Work Phone: [facility] [employer] 06-20-2023 16:08-0500 Body mass index (BMI) [Ratio] 44.81 kg/m2 Edith Pierce MD Work Phone: [facility] [employer] 06-20-2023 16:08-0500 Body temperature 97 [degF] Edith Pierce MD Work Phone: [facility] [employer] 06-20-2023 16:08-0500 Body weight 111.13 kg Edith Pierce MD Work Phone: [facility] [employer] 06-20-2023 16:08-0500 Heart rate 62 /min Edith Pierce MD Work Phone: [facility] [employer] 06-20-2023 16:08-0500 SaO2% (BldA) [Mass fraction] 98 % Edith Pierce MD Work Phone: [facility] [employer] 03-23-2023 11:50-0400 Body temperature 97.3 [degF] Cameron Marquez MD Work Phone: [facility] [employer] 03-23-2023 11:50-0400 Diastolic blood pressure 64 mm[Hg] Cameron Marquez MD Work Phone: [facility] [employer] 03-23-2023 11:50-0400 Heart rate 60 /min Cameron Marquez MD Work Phone: [facility] [employer] 03-23-2023 11:50-0400 Respiratory rate 18 /min Cameron Marquez MD Work Phone: [facility] [employer] 03-23-2023 11:50-0400 SaO2% (BldA) [Mass fraction] 97 % Cameron Marquez MD Work Phone: [facility] [employer] 03-23-2023 11:50-0400 Systolic blood pressure 110 mm[Hg] Cameron Marquez MD Work Phone: [facility] 03-22-2023 03:44-0400 Body mass index (BMI) [Ratio] 45.6 kg/m2 Cameron Marquez MD Work Phone: [facility] [employer] 03-22-2023 03:44-0400 Body weight 113.08 kg Cameron Marquez MD Work Phone: [facility] 03-16-2023 17:41-0400 Body height 157.5 cm Cameron Marquez MD Work Phone: [facility] 01-06-2022 10:42-0400 Body height 160 cm Shania Cho MD Work Phone: [facility] 01-06-2022 10:42-0400 Body weight 100.15 kg Shania Cho MD Work Phone: [facility] 01-06-2022 10:42-0400 Diastolic blood pressure 61 mm[Hg] Shania Cho MD Work Phone: [facility] 01-06-2022 10:42-0400 Heart rate 58 /min Shania Cho MD Work Phone: [facility] 01-06-2022 10:42-0400 SaO2% (BldA) [Mass fraction] 96 % Shania Cho MD Work Phone: [facility] 01-06-2022 10:42-0400 Systolic blood pressure 115 mm[Hg] Shania Cho MD Work Phone: [facility] Encounters Encounter Date Encounter Type Care Provider Facility Start: 03-06-2025 End: 03-15-2025 Evaluation and management of inpatient Sarah Marina DO Work Phone: [facility] Card[facility] Progressive Care Unit PCU 5W Comment on above: Hyponatremia (Primar y Dx); Weakness; Impaired mobility and ADLs Start: 03-06-2025 End: 03-06-2025 Emergency department patient visit Jorge Roth MD Work Phone: [facility] ED Comment on above: Fall, initial encoun ter (Primary Dx); Contusion of left elbow, initial encounter; Contusion of left knee, initial encounter Start: 02-25-2025 ambulatory Mary REDDY Facil ity:[facility] Start: 02-25-2025 Registered Referred Mary HwangJohanny [facility] [place] - [address] Start: 02-18-2025 ambulatory Mary REDDY Facil ity:[facility] Start: 02-18-2025 Registered Referred Mary Jackson [facility] [place] - Unit [address] Start: 2025 End: 2025 ambulatory Mary REDDY -[facility] [place] - Unit [address] Start: 2025 End: 2025 Departed Referred Mary Van -[facility] [place] - Unit [address] Start: 2025 End: 2025 ambulatory Mary REDDY Facility:[facility] Start: 02-08-2025 ambulatory Mary REDDY Facil ity:[facility] Start: 02-08-2025 Registered Referred Mary Jackson [facility] [place] - Unit [address] Start: 02-04-2025 ambulatory Mary REDYD Facil ity:[facility] Start: 02-04-2025 Registered Referred Mary Jackson [facility] [place] - Unit 100 Start: 01-28-2025 ambulatory Mary REDDY Facil ity:[facility] Start: 01-28-2025 Registered Referred Mary Van -J[facility] [place] - Unit [address] Start: 01-21-2025 ambulatory Mary REDDY Facil ity:[facility] Start: 01-21-2025 Registered Referred Mary Van -[facility] [place] - Unit 100 Start: 01-17-2025 ambulatory Mary REDDY Facil ity:[facility] Start: 01-17-2025 Registered Referred Mary Carlotachristina Wigg[place] - Unit [address] Start: 12-30-2024 End: 01-15-2025 [facility] Start: 12-30-2024 End: 01-15-2025 Evaluation and management of inpatient Pati Duenas MD Work Phone: [facility] Respiratory Unit 7W Comment on above: Pressure injury of l eft thigh, stage 3 (HCC) (Primary Dx); Fall, initial encounter; Acute pain of left knee; Chronic bilateral low back pain with bilateral sciatica Start: 12-29-2024 End: 12-29-2024 Emergency department patient visit Pat Mcclellan Mayrathaddeus Work Phone: [facility] ED Comment on above: Other chronic pain ( Primary Dx) Start: 12-28-2024 End: 12-29-2024 Emergency department patient visit Jess Patton MD Work Phone: [facility] ED Comment on above: Acute pain of left k nee (Primary Dx) Start: 12-28-2024 End: 01-01-2025 Telephone encounter Edith Pierce MD Work Phone: [facility] [place] Comment on above: Home Visit Start: 12-28-2024 End: 12-28-2024 Emergency department patient visit Arslan Kirkland MD Work Phone: [facility] ED Comment on above: Nondisplaced fractur e of shaft of fifth metacarpal bone, left hand, initial encounter for closed fracture (Primary Dx) Start: 12-25-2024 End: 12-26-2024 Telephone encounter Edith Pierce MD Work Phone: [facility] [place] Comment on above: Other ([facility]) Start: 12-25-2024 End: 12-25-2024 Emergency department patient visit Jess Patton MD Work Phone: [facility] ED Comment on above: Candidal intertrigo (Primary Dx); Acute cystitis with hematuria; Difficulty demonstrating health literacy; Medication side effects present, subsequent encounter Start: 12-12-2024 End: 12-12-2024 Telephone encounter [facility] Comment on above: Other ([facility] Start: 11-15-2024 End: 11-15-2024 Emergency department patient visit Arslan Kirkland MD Work Phone: [facility] ED Comment on above: Weakness (Primary Dx ); Head injury, initial encounter; Fall, initial encounter; Hypervolemia, unspecified hypervolemia type; Chronic kidney disease, unspecified CKD stage; Anemia due to chronic kidney disease, unspecified CKD stage; Medication side effect; Hyponatremia Start: 11-09-2024 End: 12-13-2024 Telephone encounter Edith Pierce MD Work Phone: [facility] [place] Start: 11-07-2024 End: 11-08-2024 Telephone encounter Edith Pierce MD [facility] Comment on above: Orders Start: 11-03-2024 End: 11-03-2024 Emergency department patient visit kaushik Lees Work Phone: [facility] ED Comment on above: Urinary retention (P rimary Dx); Fall, initial encounter; Pain of right hip Start: 10-08-2024 End: 10-17-2024 Telephone encounter Edith Pierce MD Work Phone: [facility] [place] Start: 10-02-2024 End: 10-06-2024 ambulatory BILL HERBETR [facility] Start: 09-18-2024 End: 09-18-2024 ambulatory EDITH PIERCE [facility] Start: 09-18-2024 End: 09-18-2024 Office outpatient visit 25 minutes Edith Pierce MD [facility] Comment on above: Psychogenic polydips ia (Primary Dx); Anemia in stage 4 chronic kidney disease (HCC) (HCC); Chronic schizoaffective disorder (HCC); Morbid obesity with BMI of 45.0-49.9, adult (HCC); HTN (hypertension), benign; Mixed hyperlipidemia; Acquired hypothyroidism; Screening mammogram for breast cancer; Vision abnormalities Start: 08-23-2024 End: 09-03-2024 Telephone encounter Edith Pierce MD Work Phone: [facility] [place] Comment on above: Appointment Start: 08-03-2024 End: 08-03-2024 Subsequent hospital visit by physician [facility] Us Exam Room 2 [facility] US Comment on above: Arrived Start: 08-03-2024 End: 08-03-2024 [facility] Start: 08-03-2024 End: 08-03-2024 Subsequent hospital visit by physician [facility] Port[facility] Radiology Comment on above: Arrived Start: 08-03-2024 End: 08-03-2024 Emergency department patient visit [facility] Start: 08-03-2024 End: 08-10-2024 Evaluation and management of inpatient Jess Ptaton MD Work Phone: [facility] Card[facility] Progressive Care Unit PCU 5W Comment on above: Hypervolemia, unspec ified hypervolemia type (Primary Dx); Peripheral edema; Failure to thrive in adult; Chronic kidney disease, unspecified CKD stage; Anemia, unspecified type; Chronic schizoaffective disorder (HCC) Start: 08-01-2024 End: 08-01-2024 Emergency department patient visit EDITH PIERCE [facility] ED Comment on above: Contusion of right a nkle, initial encounter (Primary Dx) Start: 06-28-2024 End: 06-28-2024 Subsequent hospital visit by physician [facility] Radiology Comment on above: Arrived Start: 06-28-2024 End: 06-28-2024 [facility] Start: 06-28-2024 End: 07-04-2024 Evaluation and management of inpatient Sarah Duran MD Work Phone: [facility] Medical Surgical Unit MSU 1E Comment on above: Acute cystitis witho ut hematuria (Primary Dx); Altered mental status, unspecified altered mental status type; Hyponatremia; Morbid obesity with BMI of 45.0-49.9, adult (HCC) Start: 06-18-2024 End: 06[facility]: 06-14-2024 End: 06-14-2024 [facility] Start: 06-14-2024 End: 06-14-2024 Office outpatient new 30 minutes Familia Jeronimo MD Work Phone: [facility] Hematology and Medical Oncology [facility] Comment on above: Anemia in stage 4 ch ronic kidney disease (HCC) (HCC) (Primary Dx) Start: 05-11-2024 End: 05-30-2024 Telephone encounter Nick Green MD Work Phone: [facility] Start: 04-24-2024 End: 04-24-2024 Telephone encounter Nick Green MD Work Phone: [facility] Start: 04-17-2024 End: 07-17-2024 Transcribe Orders Eva Andre MD Work Phone: [facility] Comment on above: Hyperparathyroidism, unspecified (HCC) (Primary Dx); Vitamin D deficiency, unspecified; Iron deficiency; Chronic kidney disease, unspecified; Nephrogenic diabetes insipidus (HCC); Proteinuria, unspecified Start: 03-15-2024 End: 03-16-2024 Telephone encounter Fran Bowers MD Work Phone: [facility] Clinical Communication Comment on above: Appointment Request Start: 03-08-2024 End: 03-08-2024 Refill Edith Pierce MD Work Phone: [facility] Start: 02-02-2024 End: 02-02-2024 Telephone encounter Brian Hwang CNP Work Phone: [facility] Comment on above: Reschedule 02/28/24 Start: 11-30-2023 Refill Shania hernandez MD Work Phone: [facility] Comment on above: Refill Request (Levo thyroxine) Start: 11-21-2023 Refill Edith guardado MD Work Phone: [facility] Start: 11-10-2023 Refill Edith guardado MD Work Phone: [facility] Start: 09-16-2023 Refill Edith guardado MD Work Phone: [facility] Start: 09-06-2023 Refill Edith guardado MD Work Phone: [facility] Start: 09-04-2023 End: 09-04-2023 Subsequent hospital visit by physician [facility] Radiology Comment on above: Arrived Start: 09-04-2023 End: 09-04-2023 Emergency department patient visit Lilia Beard MD Work Phone: [facility] ED Comment on above: Shortness of breath (Primary Dx) Start: 08-25-2023 End: 08-26-2023 Emergency department patient visit Theresa Briggs MD Work Phone: [facility] Comment on above: Transient alteration of awareness (Primary Dx) Start: 06-28-2023 End: 06-28-2023 Subsequent hospital visit by physician Nick Green MD Work Phone: [facility] Comment on above: Stage 3b chronic kid monique disease (HCC) Start: 06-22-2023 End: 06-22-2023 Office outpatient visit 25 minutes Nick Green MD Work Phone: [facility] Comment on above: Stage 3b chronic kid monique disease (HCC) (Primary Dx); Urge incontinence of urine Start: 06-20-2023 End: 06-20-2023 Office outpatient visit 25 minutes Edith Pierce MD Work Phone: [facility] Comment on above: HTN (hypertension), benign (Primary Dx); Chronic renal disease, stage IV (HCC); Chronic kidney disease, stage 3b (HCC); Morbid obesity with BMI of 45.0-49.9, adult (HCC); Screening mammogram for breast cancer; Hyponatremia Start: 06-14-2023 Telephone encounter Edith schafer MD Work Phone: [facility] Comment on above: Med Refill Start: 06-07-2023 Telephone encounter Edith schafer MD Work Phone: [facility] Comment on above: Forms/questionnaires (/) Start: 05-10-2023 Refill Edith guardado MD Work Phone: [facility] Comment on above: Chronic schizoaffect jayne disorder (HCC) Start: 04-21-2023 Refill Edith guardado MD Work Phone: [facility] Comment on above: Chronic schizoaffect jayne disorder (HCC) Start: 03-16-2023 End: 03-16-2023 Subsequent hospital visit by physician [facility] [address] Exam Room [address] [facility] [address] Comment on above: Arrived Start: 03-16-2023 End: 03-23-2023 Evaluation and management of inpatient Cameron Marquez MD Work Phone: [facility] Comment on above: Urinary tract infect ion without hematuria, site unspecified (Primary Dx); Renal insufficiency; Altered mental status, unspecified altered mental status type; Chronic schizoaffective disorder (HCC) Start: 03-16-2023 [facility] Start: 03-16-2023 Patient encounter [facility] Start: 02-24-2023 Telephone encounter Aster Hwang NP Work Phone: [facility] Comment on above: Other (Medical suppl y question) Start: 02-23-2023 End: 02-23-2023 Office outpatient visit 15 minutes Aster Hwang CHEMICAL INSPECTOR Work Phone: [facility] Comment on above: Urge incontinence of urine (Primary Dx); Urinary retention; Incontinence of feces, unspecified fecal incontinence type Start: 02-08-2023 Telephone encounter Hungaaronnacho Gonzalez Mary Hwang CNP Work Phone: [facility] Start: 12-23-2022 End: 12-23-2022 ambulatory Shania Cho Work Phone: [facility] Laboratory Comment on above: Arrived Hypothyroidism, unsp ecified (Primary Dx) Start: 12-08-2022 Refill Edith guardado MD Work Phone: [facility] Start: 12-01-2022 Refill Shania hernandez MD Work Phone: [facility] Comment on above: Refill Request (levo thyroxine); Refill Request Start: 11-19-2022 Refill Shania hernandez MD Work Phone: [facility] Comment on above: Refill Request Start: 11-02-2022 Refill Shania hernandez MD Work Phone: [facility] Comment on above: Refill Request (Levo thyroxine) Start: 09-12-2022 Refill Shania hernandez MD Work Phone: [facility] Comment on above: Refill Request (levo thyroxine) Start: 09-09-2022 Refill Edith guardado MD Work Phone: [facility] Start: 09-06-2022 Telephone encounter Shania Cho MD Work Phone: [facility] Comment on above: Appointment Start: 08-15-2022 Refill Shania hernandez MD Work Phone: [facility] Comment on above: Refill Request (Synt hroid) Start: 07-27-2022 Telephone encounter Shania Cho MD Work Phone: [facility] Comment on above: Orders Start: 05-11-2022 ambulatory Edith Pierce [facility] Start: 05-11-2022 End: 05-11-2022 Subsequent hospital visit by physician Edith Pierce MD Work Phone: [facility] Comment on above: Arrived Start: 05-03-2022 [facility] Start: 05-03-2022 End: 05-03-2022 Subsequent hospital visit by physician Edith Pierce MD Work Phone: [facility] Comment on above: Essential hypertensi on; Arthralgia, unspecified joint Start: 04-05-2022 ambulatory UNKNOWN [facility] Start: 04-05-2022 End: 04-05-2022 Subsequent hospital visit by physician Perfecto Hollins MD Work Phone: [facility] Start: 03-24-2022 [facility] Start: 03-24-2022 End: 03-24-2022 Subsequent hospital visit by physician Edith Pierce MD Work Phone: [facility] Comment on above: Essential hypertensi on Start: 03-04-2022 [facility] Start: 03-04-2022 End: 03-04-2022 Subsequent hospital visit by physician Edith Pierce MD Work Phone: [facility] Start: 01-06-2022 End: 01-06-2022 Patient encounter procedure Shania Cho MD Work Phone: [facility] Comment on above: Hypothyroidism, unsp ecified type (Primary Dx); Vitamin D deficiency Start: 12-29-2021 Refill Shania hernandez MD Work Phone: [facility] Comment on above: Refill Request (Levo thyroxine ) Start: 10-21-2021 [facility] Start: 10-21-2021 End: 10-21-2021 Subsequent hospital visit by physician Fran Bowers MD Work Phone: [facility] Comment on above: Hyponatremia with de creased serum osmolality Start: 09-07-2021 [facility] Start: 09-07-2021 End: 09-07-2021 Subsequent hospital visit by physician Fran Bowers MD Work Phone: [facility] Comment on above: Encounter for long-t erm (current) use of high-risk medication Start: 07-17-2021 [facility] Start: 01-22-2021 End: 01-22-2021 Subsequent hospital visit by physician Ewelina Pruett MD Work Phone: [facility] Start: 01-13-2021 End: 01-13-2021 Subsequent hospital visit by physician Adrián Buckner BINDER OPERATOR - [employer]ER Work Phone: [facility] Start: 07-04-2020 End: 07-04-2020 Subsequent hospital visit by physician Ewelina Pruett Work Phone: [facility] Start: 06-03-2020 End: 06-03-2020 Subsequent hospital visit by physician Edith Pierce Work Phone: [facility] Comment on above: Arrived Start: 04-30-2020 End: 04-30-2020 Subsequent hospital visit by physician Shaila Garcia Work Phone: [facility] Start: 03-04-2020 End: 03-04-2020 Subsequent hospital visit by physician Ewelina Pruett Work Phone: [facility] Start: 01-16-2020 End: 01-16-2020 Subsequent hospital visit by physician Edith Pierce [facility] Start: 12-31-2019 End: 12-31-2019 Subsequent hospital visit by physician Edith Pierce Work Phone: [facility] Comment on above: Essential hypertensi on; Acquired hypothyroidism Start: 10-22-2019 End: 10-22-2019 Subsequent hospital visit by physician Ewelina Pruett Work Phone: [facility] Start: 10-04-2019 End: 10-04-2019 Subsequent hospital visit by physician Ewelina Pruett Work Phone: [facility] Start: 07-16-2019 End: 07-16-2019 Subsequent hospital visit by physician Nathan Tyler Work Phone: [facility] Comment on above: Arrived Start: 05-30-2019 End: 05-30-2019 Subsequent hospital visit by physician Fran Bowers Work Phone: [facility] Laboratory Comment on above: Encounter for long-t erm (current) use of high-risk medication Start: 05-07-2019 End: 05-07-2019 Subsequent hospital visit by physician Zehra Aguilera Work Phone: [facility] [place] [facility] Start: 05-02-2019 End: 05-02-2019 Subsequent hospital visit by physician Zehra Aguilera Work Phone: [facility] Start: 04-30-2019 End: 04-30-2019 Subsequent hospital visit by physician Zehra Aguilera Work Phone: [facility] Start: 04-26-2019 End: 04-26-2019 Subsequent hospital visit by physician Zehra Aguilera Work Phone: [facility] [place] [facility] Start: 03-27-2019 End: 03-27-2019 Subsequent hospital visit by physician Ewelina Pruett Work Phone: [facility] Laboratory Start: 06-16-2018 Patient encounter procedure Fran Bowers [facility] Start: 03-28-2018 Patient encounter procedure Ivan Chacon [facility] Start: 02-12-2018 Evaluation and manag ement of inpatient [facility] Start: 10-06-2017 Evaluation and manag ement of inpatient [facility] Procedures Date Procedure Procedure Detail Performing Clinician Start: 03-15-2025 Renal function panel Emi Miller MD Work Phone: Start: 03-14-2025 Renal function panel Emi Miller MD Work Phone: Start: 03-13-2025 Renal function panel Emi Miller MD Work Phone: Start: 03-12-2025 Renal function panel Emi Miller MD Work Phone: Start: 03-11-2025 Immunofixj electroph oresis serum Eva Andre MD Work Phone: Start: 03-11-2025 K/L QNT FREE LIGHT C HAINS WITH RATIO (BKR QUEST) Eva Anrde MD Work Phone: Start: 03-11-2025 Renal function panel Da benton Andre MD Work Phone: Start: 03-10-2025 Renal function panel Da benton Andre MD Work Phone: Start: 03-09-2025 Basic metabolic pane l calcium total Tunde Tucker MD Work Phone: Start: 03-09-2025 Lipid panel Eva ramos MD Work Phone: Start: 03-09-2025 Lipid 1996 panel - S daniel or Plasma Sarah Marina [employer] Work Phone: Start: 03-08-2025 End: 03-08-2025 Assay of osmolality blood Eva hughes MD Work Phone: Start: 03-08-2025 Basic metabolic pane l calcium total Clara Wyatt DO Work Phone: Start: 03-08-2025 Thyrotropin [Units/v olume] in Serum or Plasma Sarah Marina DO Work Phone: Start: 03-07-2025 Basic metabolic pane l calcium total Paul Anderson DO Work Phone: Start: 03-07-2025 Urnls dip stick/tabl et reagent auto microscopy Raymon Talbot PA-C Work Phone: Start: 03-06-2025 Comprehensive metabo lic panel Raymon Talbot PA-C Work Phone: Start: 03-06-2025 Ecg routine ecg w/le ast 12 lds trcg only w/o i&r Raymon Talbot PA-C Work Phone: Start: 03-06-2025 Radiologic exam ches t single view Raymon Talbot PA-C Work Phone: Start: 03-06-2025 End: 03-06-2025 Radex elbow complete minimum 3 views Jorge Roth MD Work Phone: Start: 02-18-2025 Urine culture Mary Smiley Start: 02-18-2025 Osmolality measureme nt, serum Mary REDDY Start: 02-18-2025 Serum inorganic phos phate measurement Mary REDDY Start: 02-18-2025 Urnls dip stick/tabl et reagent auto microscopy Mary REDDY Start: 01-17-2025 Vitamin D, 25-hydrox y measurement Mary REDDY Comment on above: Vitamin D StatusDefi ciency: <20 ng/mL (50nmol/L)Insufficiency: 20-30 ng/mL (50-75 nmol/L)Sufficiency: 30-100 ng/mL (75-250 nmol/L)Toxicity: >100 ng/mL (>250 nmol/L) Start: 01-15-2025 Glucose quantitative blood xcpt reagent strip Ashley Hayes MD Work Phone: Start: 01-15-2025 Basic metabolic pane l calcium total Ghislaine Macedo CHEMICAL INSPECTOR Work Phone: Start: 01-14-2025 Basic metabolic pane l calcium total Ghislaine Macedo CHEMICAL INSPECTOR Work Phone: Start: 01-13-2025 Basic metabolic pane l calcium total Ghislaine Macedo CHEMICAL INSPECTOR Work Phone: Start: 01-12-2025 Basic metabolic pane l calcium total Ghislaine Macedo CHEMICAL INSPECTOR Work Phone: Start: 01-11-2025 Glucose quantitative blood xcpt reagent strip Trung Anat DO Work Phone: Start: 01-11-2025 Basic metabolic pane l calcium total Ghislaine Macedo CHEMICAL INSPECTOR Work Phone: Start: 01-10-2025 Basic metabolic pane l calcium total Ghislaine Macedo CHEMICAL INSPECTOR Work Phone: Start: 01-09-2025 Basic metabolic pane l calcium total Ghislaine Macedo CHEMICAL INSPECTOR Work Phone: Start: 01-08-2025 Basic metabolic pane l calcium total Ghislaine Macedo CHEMICAL INSPECTOR Work Phone: Start: 01-07-2025 Glucose quantitative blood xcpt reagent strip Ashley Hayes MD Work Phone: Start: 01-07-2025 Glucose quantitative blood xcpt reagent strip Ashley Hayes MD Work Phone: Start: 01-07-2025 Glucose quantitative blood xcpt reagent strip Ashley Hayes MD Work Phone: Start: 01-07-2025 Basic metabolic pane l calcium total Ghislaine Maecdo CHEMICAL INSPECTOR Work Phone: Start: 01-06-2025 Basic metabolic pane l calcium total Ghislaine Macedo CHEMICAL INSPECTOR Work Phone: Start: 01-02-2025 Basic metabolic pane l calcium total Ghislaine Macedo CHEMICAL INSPECTOR Work Phone: Start: 12-31-2024 Basic metabolic pane l calcium total Ghislaine Macedo CHEMICAL INSPECTOR Work Phone: Start: 12-31-2024 ACINETOBACTER BAUMANNII PCR Kenney Eldridge MD Work Phone: Start: 12-31-2024 JAH AURIS SCREEN Leigh Eldridge MD Work Phone: Start: 12-30-2024 Blood gases any comb ination ph pco2 po2 co2 hco3 Lissett Gonzalez MD Work Phone: Start: 12-30-2024 Ct head/brain w/o co ntrast material Lissett Gonzalez MD Work Phone: Start: 12-30-2024 Urnls dip stick/tabl et reagent auto microscopy Lissett Gonzalez MD Work Phone: Start: 12-30-2024 Comprehensive metabo lic panel Lissett Gonzalez MD Work Phone: Start: 12-30-2024 Drug assay valproic dipropylacetic acid total Lissett Gonzalez MD Work Phone: Start: 12-30-2024 Radiologic exam knee complete 4/more views Pati Duenas MD Work Phone: Start: 12-30-2024 Thyrotropin [Units/v olume] in Serum or Plasma Edith Pierce MD Work Phone: Start: 12-29-2024 Radiologic examinati on foot 2 views Jess Patton MD Work Phone: Start: 12-28-2024 End: 12-28-2024 Radiologic examination femur minimum 2 views Jess Patton MD Work Phone: Start: 12-28-2024 Radex hand minimum 3 views Arslan Kirkland MD Work Phone: Start: 12-28-2024 Application short ar m splint forearm-hand static Arslan Kirkland MD Work Phone: Start: 12-25-2024 Urnls dip stick/tabl et reagent auto microscopy Jess Patton MD Work Phone: Start: 12-25-2024 Glucose quantitative blood xcpt reagent strip Jess Patton MD Work Phone: Start: 11-15-2024 Assay of ammonia Jess Patton MD Work Phone: Start: 11-15-2024 Radiologic examinati on pelvis 1/2 views Arslan Kirkland MD Work Phone: Start: 11-15-2024 Radiologic exam ches t single view Arslan Kirkland MD Work Phone: Start: 11-15-2024 Ecg routine ecg w/le ast 12 lds trcg only w/o i&r Jess Patton MD Work Phone: Start: 11-15-2024 Ct head/brain w/o co ntrast material Arslan Kirkland MD Work Phone: Start: 11-15-2024 Comprehensive metabo lic panel Arslan Kirkland MD Work Phone: Start: 11-15-2024 Drug assay valproic dipropylacetic acid total Jess Pooja BLANCHARD Work Phone: Start: 11-03-2024 Blood count complete automated Javad Lees DO Work Phone: Start: 11-03-2024 Urinalysis complete panel - Urine Javad Lees DO Work Phone: Start: 11-03-2024 Urnls dip stick/tabl et reagent auto microscopy Javad Lees DO Work Phone: Start: 11-03-2024 Radex hip unilateral with pelvis 2-3 views Javad Lees DO Work Phone: Start: 09-18-2024 Follow-up visit JAVAD LEES Start: 08-10-2024 Basic metabolic pane l calcium total Mariann Byrnes MD Work Phone: Start: 08-09-2024 Basic metabolic pane l calcium total Mariann Byrnes MD Work Phone: Start: 08-09-2024 Manual differential performed [Presence] in Blood Mariann Byrnes MD Work Phone: Start: 08-08-2024 Glucose quantitative blood xcpt reagent strip Diamante Schroeder MD Work Phone: Start: 08-08-2024 Basic metabolic pane l calcium total Mariann Byrnes MD Work Phone: Start: 08-07-2024 Glucose quantitative blood xcpt reagent strip Diamante Schroeder MD Work Phone: Start: 08-06-2024 Us retroperitoneal r eal time w/image limited Kesha Nguyen MD Work Phone: Start: 08-06-2024 Protein total xcpt refractometry urine Kesha Nguyen MD Work Phone: Start: 08-06-2024 End: 08-07-2024 Basic metabolic panel calcium total Mariann Byrnes MD Work Phone: Start: 08-06-2024 Thyrotropin [Units/v olume] in Serum or Plasma Jess Patton MD Work Phone: Start: 08-05-2024 Culture bacterial quanttative colony count urine Mariann Byrnes MD Work Phone: Start: 08-05-2024 Urinalysis complete panel - Urine Mariann Byrnes MD Work Phone: Start: 08-04-2024 Basic metabolic pane l calcium total Mariann Byrnes MD Work Phone: Start: 08-03-2024 Dup-scan xtr veins c omplete bilateral study Jess Patton MD Work Phone: Start: 08-03-2024 Radiologic examinati on pelvis 1/2 views Jess Patton MD Work Phone: Start: 08-03-2024 End: 08-03-2024 Comprehensive metabolic panel Jess Patton MD Work Phone: Start: 08-01-2024 Basic metabolic pane l calcium total Mayito Cedeño BINDER OPERATOR - [employer] Work Phone: Start: 08-01-2024 Drug assay valproic dipropylacetic acid total Mayito Cedeño BINDER OPERATOR - [employer] Work Phone: Start: 08-01-2024 End: 08-01-2024 Radiologic examination tibia & fibula 2 views Mayito Aparicioner BINDER OPERATOR - [employer] Work Phone: Start: 07-04-2024 Assay of osmolality urine Mary Gamboa MD Work Phone: Start: 07-04-2024 Basic metabolic pane l calcium total Sarah Gutierrez DO Work Phone: Start: 07-03-2024 Renal function panel marli Gamboa MD Work Phone: Start: 07-02-2024 Basic metabolic pane l calcium total Tao Conte MD Work Phone: Start: 07-01-2024 Basic metabolic pane l calcium total Froy Bourne MD Work Phone: Start: 07-01-2024 Basic metabolic pane l calcium total Tao Conte MD Work Phone: Start: 06-30-2024 End: 06-30-2024 Assay of osmolality blood Tao Conte MD Work Phone: Start: 06-30-2024 Basic metabolic pane l calcium total Tao Conte MD Work Phone: Start: 06-30-2024 Thyrotropin [Units/v olume] in Serum or Plasma Sarah Duran MD Work Phone: Start: 06-29-2024 Basic metabolic pane l calcium total Tao Conte MD Work Phone: Start: 06-28-2024 Glucose quantitative blood xcpt reagent strip Estephania Gonzalez MD Work Phone: Start: 06-28-2024 Culture bacterial quanttative colony count urine Sarah Duran MD Work Phone: Start: 06-28-2024 Urinalysis complete panel - Urine Sarah Duran MD Work Phone: Start: 06-28-2024 Radiologic exam ches t single view Sarah Duran MD Work Phone: Start: 06-28-2024 SARS-COV-2, FLU A/B, AND RSV COMBO Sarah Duran MD Work Phone: Start: 06-28-2024 Comprehensive metabo lic panel Sarah Duran MD Work Phone: Start: 06-28-2024 Ecg routine ecg w/le ast 12 lds trcg only w/o i&r Sarah Duran MD Work Phone: Start: 06-18-2024 Follow-up visit JAVAD LEES Start: 06-14-2024 Follow-up visit JAVAD LEES Start: 09-04-2023 Urinalysis complete panel - Urine Lilia Beard MD Work Phone: Start: 09-04-2023 Urnls dip stick/tabl et reagent auto microscopy Lilia Beard MD Work Phone: Start: 09-04-2023 Radiologic exam ches t single view Lilia Beard MD Work Phone: Start: 09-04-2023 Basic metabolic pane l calcium total Lilia Beard MD Work Phone: Start: 09-04-2023 SARS-COV-2, FLU A/B, AND RSV COMBO Lilia Beard MD Work Phone: Start: 09-04-2023 Ecg routine ecg w/le ast 12 lds trcg only w/o i&r Lilia Beard MD Work Phone: Start: 08-25-2023 Urinalysis complete panel - Urine Miquel Nagel MD Work Phone: Start: 08-25-2023 Urnls dip stick/tabl et reagent auto microscopy Miquel Nagel MD Work Phone: Start: 08-25-2023 Ct head/brain w/o co ntrast material Theresa Briggs MD Work Phone: Start: 08-25-2023 SARS-COV-2, FLU A/B, AND RSV COMBO Miquel Nagel MD Work Phone: Start: 08-25-2023 Comprehensive metabo lic panel Miquel Nagel MD Work Phone: Start: 08-25-2023 Drug assay valproic dipropylacetic acid total Miquel Nagel MD Work Phone: Start: 08-25-2023 Ecg routine ecg w/le ast 12 lds trcg only w/o i&r Miquel Nagel MD Work Phone: Start: 06-28-2023 Lipid 1996 panel - S daniel or Plasma Nick Green MD Work Phone: Start: 03-23-2023 Basic metabolic pane l calcium total Lissett Gonzalez MD Work Phone: Start: 03-22-2023 Glucose quantitative blood xcpt reagent strip Paul Anderson DO Work Phone: Start: 03-18-2023 Ecg routine ecg w/le ast 12 lds trcg only w/o i&r Kevin Grimes DO Work Phone: Start: 03-18-2023 Basic metabolic pane l calcium total Kevin Grimes DO Work Phone: Start: 03-17-2023 Basic metabolic pane l calcium total Laurena Shakir Sierra MD Work Phone: Start: 03-17-2023 Thyrotropin [Units/v olume] in Serum or Plasma [facility] 1 Start: 03-17-2023 Assay of free thyroxine Kevinsheila Grimes DO Work Phone: Start: 03-17-2023 Drug assay valproic dipropylacetic acid total Tyler Sawant MD Work Phone: Start: 03-16-2023 Ct head/brain w/o co ntrast material Cameron Marquez MD Work Phone: Start: 03-16-2023 Comprehensive metabo lic panel Cameron Marquez MD Work Phone: Start: 03-16-2023 Culture bacterial quanttative colony count urine Tyler Sawant MD Work Phone: Start: 03-16-2023 Drug tst prsmv instr mnt chem analyzers pr date Cameron Marquez MD Work Phone: Start: 03-16-2023 Urinalysis complete panel - Urine Cameron Marquez MD Work Phone: Start: 03-16-2023 Ecg routine ecg w/le ast 12 lds i&r only Cameron Marquez MD Work Phone: Start: 12-23-2022 Assay of free thyroxine Shania Cho Work Phone: Start: 12-23-2022 Thyrotropin [Units/v olume] in Serum or Plasma [facility] Start: 05-11-2022 End: 05-11-2022 Screening digital breast tomosynthesis bi Edith Pierce MD Work Phone: Start: 05-03-2022 Comprehensive metabo lic panel Edith Pierce MD Work Phone: Start: 05-03-2022 Rheumatoid factor quantitative Edith Pierce MD Work Phone: Start: 04-05-2022 C-reactive protein Troy Hollins MD Work Phone: Start: 04-05-2022 End: 04-05-2022 Renal function panel Perfecto Hollins MD Work Phone: Start: 03-24-2022 Blood count complete auto&auto difrntl wbc Edith Pierce MD Work Phone: Start: 03-24-2022 Lipid panel Eidth schafer MD Work Phone: Start: 03-24-2022 Lipid 1996 panel - S daniel or Plasma Edith Pierce MD Work Phone: Start: 03-04-2022 Echo tthrc r-t 2d w/ wom-mode compl spec&colr d Edith Pierce MD Work Phone: Start: 10-21-2021 Basic metabolic pane l calcium total Fran Bowers MD Work Phone: Start: 09-07-2021 Comprehensive metabo lic panel Fran Bowers MD Work Phone: Start: 01-22-2021 End: 01-22-2021 Renal function panel Ewelina Pruett MD Work Phone: Start: 07-04-2020 25 hydroxy includes fractions if performed Ewelina Pruett Work Phone: Start: 07-04-2020 Assay of ferritin Ewelina Pruett Work Phone: Start: 07-04-2020 Assay of osmolality blood Ewelina Pruett Work Phone: Start: 07-04-2020 Assay of osmolality urine Ewelina Pruett Work Phone: Start: 07-04-2020 Assay of parathormone S fara Pruett Work Phone: Start: 07-04-2020 Assay of urine sodium S fara Pruett Work Phone: Start: 07-04-2020 Creatinine other source Ewelina Pruett Work Phone: Start: 07-04-2020 Iron binding capacity S fara Pruett Work Phone: Start: 07-04-2020 Protein total xcpt refractometry urine Ewelina Pruett Work Phone: Start: 07-04-2020 Renal function panel Ashlee Panda Work Phone: Start: 07-04-2020 Microscopic observat ion [Identifier] in Cervix by Cyto stain Fran Bowers MD Work Phone: Start: 04-30-2020 Assay of free thyroxine Shaila Garcia Work Phone: Start: 04-30-2020 Assay of triiodothyr onine t3 total tt3 Shaila Garcia Work Phone: Start: 04-30-2020 Assay of thyroid sti mulating hormone tsh Shaila Garcia Work Phone: Start: 04-30-2020 Thyrotropin [Units/v olume] in Serum or Plasma Edith Pierce MD Work Phone: Start: 03-04-2020 Assay of parathormone S fara Pruett Work Phone: Start: 03-04-2020 Blood count hemoglobin Ewelina Pruett Work Phone: Start: 03-04-2020 Creatinine other source Ewelina Pruett Work Phone: Start: 03-04-2020 Protein total xcpt refractometry urine Ewelina Pruett Work Phone: Start: 03-04-2020 Renal function panel Ashlee Panda Work Phone: Start: 01-16-2020 25 hydroxy includes fractions if performed Unknown Provider Result Start: 01-16-2020 Assay of free thyroxine Unknown Provider Result Start: 01-16-2020 Assay of thyroid sti mulating hormone tsh Unknown Provider Result Start: 01-16-2020 Assay of triiodothyr onine t3 total tt3 Unknown Provider Result Start: 12-31-2019 Blood count complete auto&auto difrntl wbc Edith Pierce Work Phone: Start: 12-31-2019 Comprehensive metabo lic panel Edith Pierce Work Phone: Start: 10-22-2019 Assay of osmolality urine Ewelina Pruett Work Phone: Start: 10-22-2019 Assay of urine sodium S fara Pruett Work Phone: Start: 10-22-2019 Assay of osmolality blood Ewelina Pruett Work Phone: Start: 10-04-2019 25 hydroxy includes fractions if performed Ewelina Pruett Work Phone: Start: 10-04-2019 Assay of ferritin Ewelina Pruett Work Phone: Start: 10-04-2019 Assay of parathormone S fara Pruett Work Phone: Start: 10-04-2019 Blood count hemoglobin Ewelina Pruett Work Phone: Start: 10-04-2019 Iron binding capacity S fara Pruett Work Phone: Start: 10-04-2019 Renal function panel Ashlee Panda Work Phone: Start: 07-16-2019 Mri spinal canal lum bar w/o contrast material Nathan Taliwal Work Phone: Start: 05-30-2019 Basic metabolic pane l calcium total Fran Bowers Work Phone: Start: 05-30-2019 Blood count complete auto&auto difrntl wbc Fran Bowers Work Phone: Start: 03-27-2019 Renal function panel Del Cid giovanni Rodriguez Ray Work Phone: Start: 03-28-2018 Narayan Bowers MD Work Phone: Plan of Treatment Date Care Activity Detail Author Start: 2042 RSV Immunization for Adults (1 - 1-dose 75+ series) RSV Immunization for Adults (1 - 1-dose 75+ series) [facility] Start: 02-12-2032 Pneumococcal 0-64 years Vaccine (4 of 4 - PPSV23) Pneumococcal 0-64 years Vaccine (4 of 4 - PPSV23) [facility] Start: 02-12-2032 Pneumococcal 0-64 years Vaccine (4 of 4) Pneumococcal 0-64 years Vaccine (4 of 4) [facility] Work Phone: Start: 03-09-2030 Lipid panel Lipid Panel [facility] Start: 12-04-2028 DTaP/Tdap/Td vaccine (2 - Td or Tdap) DTaP/Tdap/Td vaccine (2 - Td or Tdap) [facility] Start: 12-04-2028 DTaP/Tdap/Td vaccine (2 - Td) DTaP/Tdap/Td vaccine (2 - Td) [place] Start: 12-04-2028 DTaP/Tdap/Td Vaccines (2 - Td or Tdap) DTaP/Tdap/Td Vaccines (2 - Td or Tdap) [facility] Start: 12-04-2028 Urine microalbumin profile DTaP,Tdap,Td Vaccine (2 - Td or Tdap) [facility] Start: 06-28-2028 Lipid panel Lipid Panel [facility] Start: 03-28-2028 Colon cancer screen colonoscopy Colon cancer screen colonoscopy [place], [place] Start: 03-28-2028 Screening for malignant neoplasm of colon [facility] Start: 03-24-2027 Lipid panel [facility] Start: 2027 RSV Immunization aged 60 or older (1 - 1-dose 60+ series) RSV Immunization aged 60 or older (1 - 1-dose 60+ series) [facility] Start: 03-08-2026 Thyroid stimulating hormone measurement TSH Level [facility] Start: 12-30-2025 Thyroid stimulating hormone measurement TSH Level [facility] Start: 09-08-2025 Depression Monitoring Depression Monitoring [facility] Start: 08-06-2025 Thyroid stimulating hormone measurement TSH Level [facility] Start: 07-15-2025 Diabetes Screening Diabetes Screening [facility] Start: 06-30-2025 Thyroid stimulating hormone measurement TSH Level [facility] Start: 04-15-2025 Influenza vaccination [facility] Start: 04-03-2025 Depression Monitoring Depression Monitoring [facility] Start: 03-25-2025 End: 03-25-2025 Patient encounter procedure 03/25/2025 1:20 PM EDT Office Visit [facility] [address] [place] [phone] Edith Pierce MD [address] [place], [place] [address] [facility] [place] Start: 01-09-2025 End: 01-09-2025 Patient encounter procedure 01/09/2025 2:00 PM EDT Appointment [facility] - [place] [address] [place] [address] Duglas Aguilar, DO [address], [place] [phone] [facility] - [place] Start: 01-03-2025 End: 01-03-2025 Patient encounter procedure 01/03/2025 8:00 AM EDT Office Visit [facility] [place] [address] [place] [address] Mari Delgado MD [address] [place] [address] [place] [phone] [facility] [place] Start: 01-02-2025 End: 01-02-2025 Patient encounter procedure 01/02/2025 2:00 PM EDT Appointment [facility] - [place] [address] [place] [address] Duglas Aguilar DO [address], [place] [phone] [facility] - [place] Start: 12-10-2024 End: 12-10-2024 Patient encounter procedure 12/10/2024 1:20 PM EDT Procedure Visit [facility] [address] [place] [phone] Edith Pierce MD [address] [place] [address] [facility] Start: 09-18-2024 End: 09-18-2025 Alanine aminotransferase [Enzymatic activity/volume] in Serum or Plasma ALT Lab Routine Psychogenic polydipsia Anemia in stage 4 chronic kidney disease (HCC) (HCC) Chronic schizoaffective disorder (HCC) HTN (hypertension), benign Mixed hyperlipidemia Acquired hypothyroidism Expected: 09/18/2024 (Approximate), Expires: 09/18/2025 [facility] Comment on above: Expected: 09/18/2024 (Approximate), Expi res: 09/18/2025 Start: 09-18-2024 End: 09-18-2025 Aspartate aminotransferase [Enzymatic activity/volume] in Serum or Plasma AST Lab Routine Psychogenic polydipsia Anemia in stage 4 chronic kidney disease (HCC) (HCC) Chronic schizoaffective disorder (HCC) HTN (hypertension), benign Mixed hyperlipidemia Acquired hypothyroidism Expected: 09/18/2024 (Approximate), Expires: 09/18/2025 [facility] Comment on above: Expected: 09/18/2024 (Approximate), Expi res: 09/18/2025 Start: 09-18-2024 End: 09-18-2025 CBC W Auto Differential panel - Blood CBC auto differential Lab Routine Psychogenic polydipsia Anemia in stage 4 chronic kidney disease (HCC) (HCC) Chronic schizoaffective disorder (HCC) HTN (hypertension), benign Mixed hyperlipidemia Acquired hypothyroidism Expected: 09/18/2024 (Approximate), Expires: 09/18/2025 [facility] System Work Phone: Comment on above: Expected: 09/18/2024 (Approximate), Expi res: 09/18/2025 Start: 09-18-2024 End: 04-04-2026 DBT Breast - bilateral screening Bilateral screening mammogram with tomosynthesis Imaging Routine Screening mammogram for breast cancer Expected: 09/18/2024, Expires: 11/16/2025 [facility] Comment on above: Expected: 09/18/2024, Expires: Start: 09-18-2024 End: 09-18-2025 Lipid 1996 panel - Serum or Plasma Lipid panel Lab Routine Psychogenic polydipsia Anemia in stage 4 chronic kidney disease (HCC) (HCC) Chronic schizoaffective disorder (HCC) HTN (hypertension), benign Mixed hyperlipidemia Acquired hypothyroidism Expected: 09/18/2024 (Approximate), Expires: 09/18/2025 [facility] Comment on above: Expected: 09/18/2024 (Approximate), Expi res: 09/18/2025 Start: 09-18-2024 End: 09-18-2025 Thyrotropin [Units/volume] in Serum or Plasma TSH Lab Routine Psychogenic polydipsia Anemia in stage 4 chronic kidney disease (HCC) (HCC) Chronic schizoaffective disorder (HCC) HTN (hypertension), benign Mixed hyperlipidemia Acquired hypothyroidism Expected: 09/18/2024 (Approximate), Expires: 09/18/2025 [facility] Comment on above: Expected: 09/18/2024 (Approximate), Expi res: 09/18/2025 Start: 09-18-2024 End: 09-18-2024 Patient encounter procedure 09/18/2024 1:00 PM EST Office Visit [facility] [place] [address] [place] [address] Edith Pierce MD [address] [place] [address] [facility] [place] Start: 08-15-2024 Medicare Advantage Annual Wellness Visit Medicare Advantage Annual Wellness Visit [facility] Start: 07-11-2024 End: 07-04-2025 Basic metabolic 1998 panel - Serum or Plasma Basic metabolic panel Lab Routine Hyponatremia Expected: 07/11/2024 (Approximate), Expires: 07/04/2025 [facility] [employer] Work Phone: Comment on above: Expected: 07/11/2024 (Approximate), Expi res: 07/04/2025 Start: 06-28-2024 Lipid panel Lipid Panel [facility] Start: 05-31-2024 End: 05-31-2024 Patient encounter procedure 05/31/2024 1:45 PM EDT Office Visit [facility] Hematology and Medical Oncology [facility] [address] [place] [address] Familia Jeronimo MD [address] [place] [address] [facility] Hematology and Medical Oncology [facility] Start: 05-11-2024 Screening for malignant neoplasm of breast Breast cancer screen [facility] Start: 04-15-2024 COVID-19 Vaccine ( season) COVID-19 Vaccine () [facility] Start: 04-15-2024 COVID-19 Vaccine () COVID-19 Vaccine () [facility] Start: 04-15-2024 Influenza vaccination [facility] Start: 03-17-2024 Thyroid stimulating hormone measurement TSH Level [facility] Start: 02-28-2024 End: 02-28-2024 Patient encounter procedure [facility] Start: 12-24-2023 Thyroid stimulating hormone measurement TSH Level [facility] Start: 09-28-2023 Diabetes mellitus screening Diabetes Screening [facility] Start: 09-28-2023 Hemoglobin A1c measurement Diabetes: Hemoglobin A1C [facility] Start: 09-17-2023 Depression Monitoring Depression Monitoring [facility] Start: 09-17-2023 Depresssion Monitoring Depresssion Monitoring [facility] Start: 08-15-2023 Behavioral Health Screening Behavioral Health Screening [facility] Start: 07-15-2023 Complete blood count Hemoglobin/Hematocrit [facility] Start: 07-15-2023 Creatinine measurement Serum Creatinine [facility] Start: 07-04-2023 Screening for malignant neoplasm of cervix [facility] Start: 06-28-2023 End: 06-28-2023 Patient encounter procedure 06/28/2023 11:00 AM EST Appointment [facility] [address] [place] [phone] [facility] Start: 06-22-2023 End: 06-22-2024 US Retroperitoneum limited US retroperitoneum limited Imaging Routine Stage 3b chronic kidney disease (HCC) Expected: 06/22/2023, Expires: 06/22/2024 [facility] [employer] Work Phone: Comment on above: Expected: 06/22/2023, Expires: Start: 06-22-2023 End: 06-22-2023 Patient encounter procedure 06/22/2023 1:50 PM EST Office Visit [facility] [address] [place] [phone] Nick Green MD [address] [place] [address] [facility] Start: 06-20-2023 End: 06-20-2024 CBC W Auto Differential panel - Blood CBC auto differential Lab Routine HTN (hypertension), benign Expected: 06/20/2023 (Approximate), Expires: 06/20/2024 [facility] Comment on above: Expected: 06/20/2023 (Approximate), Expi res: 06/20/2024 Start: 06-20-2023 End: 06-20-2024 Comprehensive metabolic 1998 panel - Serum or Plasma Comprehensive metabolic panel Lab Routine HTN (hypertension), benign Expected: 06/20/2023 (Approximate), Expires: 06/20/2024 [facility] [employer] Comment on above: Expected: 06/20/2023 (Approximate), Expi res: 06/20/2024 Start: 06-20-2023 End: 06-20-2024 Lipid 1996 panel - Serum or Plasma Lipid panel Lab Routine HTN (hypertension), benign Expected: 06/20/2023 (Approximate), Expires: 06/20/2024 [facility] [employer] Work Phone: Comment on above: Expected: 06/20/2023 (Approximate), Expi res: 06/20/2024 Start: 06-20-2023 End: 08-20-2024 MG Breast - bilateral Screening Bilateral screening mammogram Imaging Routine Screening mammogram for breast cancer Expected: 06/20/2023, Expires: 08/20/2024 [facility] Comment on above: Expected: 06/20/2023, Expires: 5 Start: 05-11-2023 Screening for malignant neoplasm of breast Mammogram [facility] Start: 04-15-2023 Covid-19 Vaccine () Covid-19 Vaccine () [facility] Start: 04-15-2023 COVID-19 Vaccine () COVID-19 Vaccine () [facility] Start: 04-15-2023 Influenza vaccination [facility] Start: 04-14-2023 Medicare Annual Wellness (AWV) Medicare Annual Wellness (AWV) [facility] Start: 03-24-2023 DIABETES SCREEN DIABETES SCREEN [facility] Start: 03-16-2023 Annual Wellness Visit (AWV) Annual Wellness Visit (AWV) [facility] Start: 03-15-2023 End: 03-15-2023 Patient encounter procedure 03/15/2023 Office Visit Urology Emilia Santos [employer]PERATOR - [employer]EWELRY RACKER [address] [place] [address] [facility] Start: 03-15-2023 Depression Monitoring Depression Monitoring [facility] Start: 03-01-2023 End: 03-01-2023 Patient encounter procedure 03/01/2023 Office Visit Urology Emilia Santos [employer]ATOR - [employer]EWELRY RACKER [address] [place] [address] [facility] [place] Start: 02-23-2023 End: 08-26-2023 US Retroperitoneum US retroperitoneum Imaging Routine Urge incontinence of urine Urinary retention Expected: 02/23/2023, Expires: 08/26/2023 [facility] Work Phone: Comment on above: Expected: 02/23/2023, Expires: 4 Start: 02-15-2023 Lipid panel [facility] Start: 02-15-2023 Lipid screen Lipid screen [facility] [place], [place] Start: 01-06-2023 BP CONTROLLED (<130/80) [facility] CONTROLLED (<130/80) [facility] Start: 10-21-2022 Creatinine measurement Creatinine monitoring [facility] Start: 10-21-2022 Potassium monitoring Potassium monitoring [facility] Start: 10-21-2022 Thyroid stimulating hormone measurement TSH testing [facility] Start: 09-02-2022 End: 09-02-2022 Patient encounter procedure 09/02/2022 Office Visit Family Medicine Edith Pierce MD [address] [place] [phone] [facility] Start: 08-15-2022 DEPRESSION ASSESSMENT DEPRESSION ASSESSMENT [facility] Start: 07-17-2022 Creatinine measurement Creatinine monitoring [facility] Start: 07-17-2022 Potassium monitoring Potassium monitoring [facility] Start: 07-17-2022 Thyroid stimulating hormone measurement TSH testing [facility] Start: 06-03-2022 Screening for malignant neoplasm of breast Breast cancer screen [facility] Start: 05-19-2022 End: 07-19-2022 T3 FREE BLD T3 FREE BLD Lab Routine Hypothyroidism, unspecified type Expected: 05/19/2022 (Approximate), Expires: 07/19/2022 [facility] Work Phone: Comment on above: Expected: 05/19/2022 (Approximate), Expi res: 07/19/2022 Start: 05-19-2022 End: 07-19-2022 T4 FREE/FREE THYROX T4 FREE/FREE THYROX Lab Routine Hypothyroidism, unspecified type Expected: 05/19/2022 (Approximate), Expires: 07/19/2022 [facility] Work Phone: Comment on above: Expected: 05/19/2022 (Approximate), Expi res: 07/19/2022 Start: 05-19-2022 End: 07-19-2022 Thyrotropin [Units/volume] in Serum or Plasma TSH BLD Lab Routine Hypothyroidism, unspecified type Expected: 05/19/2022 (Approximate), Expires: 07/19/2022 [facility] Work Phone: Comment on above: Expected: 05/19/2022 (Approximate), Expi res: 07/19/2022 Start: 05-19-2022 End: 07-19-2022 VITAMIN D 25 HYDROXY VITAMIN D 25 HYDROXY Lab Routine Vitamin D deficiency Expected: 05/19/2022 (Approximate), Expires: 07/19/2022 [facility] Work Phone: Comment on above: Expected: 05/19/2022 (Approximate), Expi res: 07/19/2022 Start: 05-11-2022 End: 05-11-2022 Patient encounter procedure 05/11/2022 Appointment Radiology Edith Pierce MD [address] [place] [phone] [facility] Start: 05-03-2022 End: 05-03-2022 Patient encounter procedure 05/03/2022 Office Visit Family Medicine Edith Pierce MD [address] [place] [phone] [facility] Start: 04-15-2022 Influenza vaccination [facility] Start: 03-31-2022 COVID-19 Vaccine (3 - Booster for Pfizer series) COVID-19 Vaccine (3 - Booster for Pfizer series) [facility] Start: 03-31-2022 COVID-19 Vaccine (3 - Pfizer series) COVID-19 Vaccine (3 - Pfizer series) [facility] Start: 03-24-2022 End: 03-24-2022 Patient encounter procedure 03/24/2022 Office Visit Cardiology Pete Mahan MD [address] [place] [address] [address] [place] [address] [facility] Start: 03-15-2022 End: 03-15-2022 Patient encounter procedure 03/15/2022 Office Visit Family Medicine Edith Pierce MD [address] [place] [phone] [facility] Start: 03-13-2022 Annual Wellness Visit (AWV) Annual Wellness Visit (AWV) [facility] Start: 02-25-2022 End: 02-25-2022 Patient encounter procedure 02/25/2022 Office Visit Urology Jeff Santossamjohanny Carlos, BINDER OPERATOR - [employer]EWELRY RACKER [address] [place] [address] [facility] [place] Start: 01-20-2022 COVID-19 VACCINE (4 - Booster for Pfizer series) COVID-19 VACCINE (4 - Booster for Pfizer series) [facility] Start: 11-17-2021 COVID-19 VACCINE (4 - Booster for Pfizer series) COVID-19 VACCINE (4 - Booster for Pfizer series) [facility] Start: 08-15-2021 DEPRESSION ASSESSMENT DEPRESSION ASSESSMENT [facility] Start: 07-04-2021 Creatinine measurement Creatinine monitoring [facility] Work Phone: Start: 07-04-2021 Potassium monitoring Potassium monitoring [facility] Work Phone: Start: 06-03-2021 Creatinine measurement [facility] [place] Start: 06-03-2021 Potassium monitoring Potassium monitoring [facility] [place] Start: 05-28-2021 COVID-19 Vaccine (3 - Booster for Pfizer series) COVID-19 Vaccine (3 - Booster for Pfizer series) [facility] Start: 05-02-2021 Breast cancer screen [facility] [place] [place] Start: 04-30-2021 Thyroid stimulating hormone measurement [facility] Start: 04-30-2021 TSH Qn TSH testing [facility] [place] Start: 04-25-2021 Breast cancer screen Breast cancer screen [facility] [place] Start: 03-24-2021 SERUM CREATININE SERUM CREATININE [facility] Start: 03-22-2021 HEMOGLOBIN/HEMATOCRIT HEMOGLOBIN/HEMATOCRIT [facility] Start: 03-12-2021 End: 03-12-2021 Patient encounter procedure 03/12/2021 Office Visit Family Medicine Edith Pierce MD [address] [place] [address] [phone] [facility] Start: 03-04-2021 Creatinine measurement Creatinine monitoring [facility] [place] [place] Start: 03-04-2021 Potassium monitoring Potassium monitoring [facility] [place] Start: 03-04-2021 TSH Qn TSH testing [facility] [place] Start: 02-15-2021 Diabetes screen Diabetes screen [facility] Start: 01-15-2021 TSH Qn TSH testing [facility] [place] Start: 12-30-2020 Creatinine measurement Creatinine monitoring [facility] [place] Start: 12-30-2020 Potassium monitoring Potassium monitoring [facility] [place] Start: 12-26-2020 COVID-19 Vaccine (2 - Pfizer 2-dose series) COVID-19 Vaccine (2 - Pfizer 2-dose series) [facility] Work Phone: Start: 10-23-2020 Breast cancer screen Breast cancer screen [facility] [place] Start: 10-23-2020 Screening for malignant neoplasm of breast Breast cancer screen [facility] [place] Start: 10-04-2020 Creatinine monitoring Creatinine monitoring [facility] [place] Start: 10-04-2020 Potassium monitoring Potassium monitoring [facility] [place] Start: 07-24-2020 End: 07-24-2020 Virtual Visit 07/24/2020 Virtual Visit Behavioral Health Fran Bowers MD [address] [place] [address], [address] [place], [place] [phone] [facility] Start: 05-30-2020 Creatinine monitoring Creatinine monitoring [facility] [place] [facility] [place] Start: 05-30-2020 Potassium monitoring Potassium monitoring [facility] [place] Start: 05-29-2020 End: 05-29-2020 Office Visit [facility] Start: 04-22-2020 End: 04-22-2020 Office Visit 04/22/2020 Office Visit Behavioral Health Fran Bowers MD [address], [address] [place], [place] [phone] [facility] Start: 04-15-2020 Influenza vaccination [facility] Start: 03-31-2020 End: 03-31-2020 Office Visit 03/31/2020 Office Visit Family Medicine Edith Pierce MD [address] [place] [address] [phone] [facility] Start: 03-29-2020 Cervical cancer screen Cervical cancer screen [facility] Start: 03-29-2020 Screening for malignant neoplasm of cervix Cervical cancer screen [facility] Start: 03-27-2020 Creatinine monitoring Creatinine monitoring [facility] Start: 03-27-2020 Potassium monitoring Potassium monitoring [facility] Start: 01-22-2020 End: 01-22-2020 Office Visit 01/22/2020 Office Visit Behavioral Fran Eastman MD [address] [place] [address], [address] [place], [place] [phone] [facility] Start: 12-31-2019 End: 12-31-2019 Office Visit 12/31/2019 Office Visit Family Medicine Edith Pierce MD [address] [place] [address] [phone] [facility] Start: 11-06-2019 End: 11-06-2019 Office Visit 11/06/2019 Office Visit Fran Pearl MD [address] [place] [address], [address] [place], [place] [phone] [facility] Start: 10-24-2019 Screening for malignant neoplasm of breast Mammogram Screening [facility] Start: 10-24-2019 End: 10-24-2019 Office Visit 10/24/2019 Office Visit Behavioral Fran Eastman MD [address] [place], [place] [id number] [facility] Start: 05-23-2019 End: 05-23-2019 Office Visit 05/23/2019 Office Visit Urology Nick Green MD [address] [place] [address] [phone] [facility] Rosalie Start: 04-15-2019 Influenza vaccination Flu vaccine (#1) [place], [place] Start: 01-31-2019 Annual Wellness Visit (AWV) Annual Wellness Visit (AWV) [place] Start: 10-05-2018 TSH Qn TSH testing [place] Start: 10-05-2018 TSH testing TSH testing [place], [place] Start: 09-11-2018 Pneumococcal 0-64 years Vaccine (3 of 3 - PPSV23) Pneumococcal 0-64 years Vaccine (3 of 3 - PPSV23) [place] Start: 2017 Shingles Vaccine (1 of 2) Shingles Vaccine (1 of 2) [facility] Start: 2017 SHINGRIX VACCINE (1 of 2) SHINGRIX VACCINE (1 of 2) [facility] Start: 2017 Zoster Vaccines (1 of 2) Zoster Vaccines (1 of 2) [facility] Start: 02-12-2012 COLOGUARD (FIT-DNA) COLOGUARD (FIT-DNA) [facility] Start: 02-12-2012 Colonoscopy COLONOSCOPY [facility] Start: 02-12-2012 COLORECTAL CANCER SCREENING COLORECTAL CANCER SCREENING [facility] Start: 02-12-[address] COLONOGRAPHY [facility] Start: 02-12-2012 FECAL OCCULT BLOOD FECAL OCCULT BLOOD [facility] Start: 02-12-2012 LIPID SCREEN LIPID SCREEN [facility] Start: 02-12-2012 Screening for malignant neoplasm of colon [facility] Start: 02-12-2012 SIGMOIDOSCOPY SIGMOIDOSCOPY [facility] Start: 2007 Mammography MAMMOGRAM [facility] Start: 1997 HPV TESTING HPV TESTING [facility] Start: 1997 Screening for malignant neoplasm of cervix [facility] Start: 02-12-1988 PAP TESTING PAP TESTING [facility] Start: 02-12-1988 Screening for malignant neoplasm of cervix Pap Testing [facility] Start: 1986 Hepatitis B Vaccine (1 of 3 - 19+ 3-dose series) Hepatitis B Vaccine (1 of 3 - 19+ 3-dose series) [facility] Start: 1986 Hepatitis B Vaccine (1 of 3 - Risk 3-dose series) Hepatitis B Vaccine (1 of 3 - Risk 3-dose series) [place] Start: 1986 Hepatitis B Vaccines (1 of 3 - 19+ 3-dose series) Hepatitis B Vaccines (1 of 3 - 19+ 3-dose series) [facility] Start: 1986 Urine microalbumin profile DTAP,TDAP,TD (1 - Tdap) [facility] Start: 1985 ANNUAL PCP TEAM CHRONIC DISEASE VISIT ANNUAL PCP TEAM CHRONIC DISEASE VISIT [facility] Start: 1985 BP CONTROLLED (<130/80) [facility]130[facility]80[facility] Start: 1985 Diabetes mellitus screening Diabetes Screening [facility] Start: 1985 HEPATITIS C SCREENING HEPATITIS C SCREENING [facility] Start: 1985 Hepatitis C screening [facility] Start: 1985 HIV SCREENING HIV SCREENING [facility] Start: 1985 HIV screening HIV Screening [facility] Start: 1982 HIV screen HIV screen [place], [place] Start: 1982 HIV screening HIV screen [facility] Start: 1979 Adult depression screening assessment DEPRESSION SCREENING [facility] Start: 1979 Depression Monitoring Depression Monitoring [facility] Start: 1979 Depresssion Monitoring Depresssion Monitoring [facility] Start: 1977 Diabetic foot examination Diabetes: Foot Exam [facility] Start: 1977 Glaucoma screening Diabetes: Retinopathy Screening [facility] Start: 1977 Preventive dental service Diabetes: Dental Exam [facility] Start: 02-12-1968 MMR Vaccines (1 of 1 - Standard series) MMR Vaccines (1 of 1 - Standard series) [facility] Start: 1967 HEPATITIS B (1 of 3 - 3-dose series) HEPATITIS B (1 of 3 - 3-dose series) [facility] Start: 1967 Hepatitis B Vaccines (1 of 3 - 3-dose series) Hepatitis B Vaccines (1 of 3 - 3-dose series) [facility] Start: 1967 Hepatitis C screening Hepatitis C screen [facility] Start: 1967 HIV screening HIV Screening [facility] Start: 1967 Medicare Advantage Annual Wellness Visit (AWV) Medicare Advantage Annual Wellness Visit (AWV) [facility] Start: 1967 Medicare Annual Wellness (AWV) Medicare Annual Wellness (AWV) [facility] Start: 1967 Screening for malignant neoplasm of colon [facility] Start: 1967 Thyroid stimulating hormone measurement TSH Level [facility] End: 04-05-2022 Anti-DNA Antibody, Double-Stranded Anti-DNA Antibody, Double-Stranded Lab Routine Once for 1 Occurrences starting 04/05/2022 until 04/05/2022 [employer] Work Phone: Comment on above: Once for 1 Occurrences starting 04/05/20 until 04/05/2022 Anti-DNA Antibody, Double-Stranded Anti-DNA Antibody, Double-Stranded Lab Routine 04/05/2022 2:08 PM EDT [employer] Work Phone: End: 04-05-2022 Anti-Neutrophilic Cytoplasmic Antibody Anti-Neutrophilic Cytoplasmic Antibody Lab Routine Once for 1 Occurrences starting 04/05/2022 until 04/05/2022 [employer] Work Phone: Comment on above: Once for 1 Occurrences starting 04/05/20 until 04/05/2022 Anti-Neutrophilic Cytoplasmic Antibody Anti-Neutrophilic Cytoplasmic Antibody Lab Routine 04/05/2022 2:08 PM EDT [facility] Work Phone: End: 12-25-2024 Bacteria identified in Urine by Culture [employer] Work Phone: Comment on above: Once (Lab) for 1 Occurrences starting until 12/25/2024 End: 08-05-2024 Basic metabolic 1998 panel - Serum or Plasma Basic metabolic panel Lab Timed Once for 1 Occurrences starting 08/05/2024 until 08/05/2024 [employer] Work Phone: Comment on above: Once for 1 Occurrences starting 08/05/20 24 until 08/05/2024 End: 04-05-2022 Cortisol Total Cortisol Total Lab Routine Once for 1 Occurrences starting 04/05/2022 until 04/05/2022 [employer] Work Phone: Comment on above: Once for 1 Occurrences starting 04/05/20 until 04/05/2022 Cortisol Total Cortisol Total L ab Routine 04/05/2022 2:08 PM EDT [facility] Work Phone: Electrophoresis Prot ein, Serum Electrophoresis Protein, Serum Lab Routine 04/05/2022 2:08 PM EDT [facility] Work Phone: End: 04-05-2022 Glomerular Basement Membrane (GBM) Antibody IgG Glomerular Basement Membrane (GBM) Antibody IgG Lab Routine Once for 1 Occurrences starting 04/05/2022 until 04/05/2022 [facility] Work Phone: Comment on above: Once for 1 Occurrences starting 04/05/20 until 04/05/2022 Glomerular Basement Membrane (GBM) Antibody IgG Glomerular Basement Membrane (GBM) Antibody IgG Lab Routine 04/05/2022 2:08 PM EDT [facility] Work Phone: Immunofixation electrophoresis Immunofixation electrophoresis Lab Routine 04/05/2022 2:08 PM EDT [facility] Work Phone: End: 08-01-2024 Lamotrigine level [facility] Work Phone: Comment on above: Once (Lab) for 1 Occurrences starting until 08/01/2024 End: 11-15-2024 Lamotrigine level [facility] Work Phone: Comment on above: Once (Lab) for 1 Occurrences starting until 11/15/2024 End: 04-05-2022 Nuclear Ab [Titer] in Serum by Immunofluorescence [facility] Lab Routine Once for 1 Occurrences starting 04/05/2022 until 04/05/2022 [facility] Work Phone: Comment on above: Once for 1 Occurrences starting 04/05/20 until 04/05/2022 Nuclear Ab [Titer] i n Serum by Immunofluorescence [facility] Lab Routine 04/05/2022 2:08 PM EDT [facility] Work Phone: End: 05-03-2022 Nuclear Ab [Titer] in Serum by Immunofluorescence [facility] Work Phone: Comment on above: 1 Occurrences starting 05/03/2022 until 05/03/2022 End: 08-05-2024 Osmolality, urine Osmolality, urine Lab Routine Once (Lab) for 1 Occurrences starting 08/05/2024 until 08/05/2024 [facility] [employer] Work Phone: Comment on above: Once (Lab) for 1 Occurrences starting until 08/05/2024 OUTSIDE PROCEDURE SCAN OUTSIDE P ROCEDURE SCAN Procedures Ordered: 12/23/2022 [facility] Comment on above: Ordered: 12/23/2022 OUTSIDE PROCEDURE SCAN OUTSIDE P ROCEDURE SCAN Procedures Ordered: 06/27/2023 [facility] Comment on above: Ordered: 06/27/2023 OUTSIDE PROCEDURE SCAN OUTSIDE P ROCEDURE SCAN Procedures Ordered: 04/17/2024 [facility] Comment on above: Ordered: 04/17/2024 End: 04-05-2022 Phospholipase A2 Receptor (PLA2R) Ab IgG, Reflex Titer Phospholipase A2 Receptor (PLA2R) Ab IgG, Reflex Titer Lab Routine Once for 1 Occurrences starting 04/05/2022 until 04/05/2022 [facility] Work Phone: Comment on above: Once for 1 Occurrences starting 04/05/20 until 04/05/2022 Phospholipase A2 Rec eptor (PLA2R) Ab IgG, Reflex Titer Phospholipase A2 Receptor (PLA2R) Ab IgG, Reflex Titer Lab Routine 04/05/2022 2:08 PM EDT [employer] Work Phone: End: 04-05-2022 RPR Reflex RPR Reflex Lab Routine Once for 1 Occurrences starting 04/05/2022 until 04/05/2022 [facility] Work Phone: Comment on above: Once for 1 Occurrences starting 04/05/20 until 04/05/2022 RPR Reflex RPR Reflex Lab R outine 04/05/2022 2:08 PM EDT [employer] Work Phone: End: 06-03-2020 Screening digital breast tomosynthesis bi Lakesha Simon Digital Screen Bilateral Imaging Routine Once for 1 Occurrences starting 06/03/2020 until 06/03/2020 [facility], [place] Comment on above: Once for 1 Occurrences starting 06/03/20 until 06/03/2020 Screening digital br east tomosynthesis bi Lakesha Simon Digital Screen Bilateral Imaging Routine 06/03/2020 11:47 AM EDT [facility] [place] End: 12-01-2023 Thyrotropin [Units/volume] in Serum or Plasma TSH BLD Lab Routine Hypothyroidism, unspecified type Every 4 months for 3 Occurrences starting 12/01/2022 until 12/01/2023 [facility] Work Phone: Comment on above: Every 4 months for 3 Occurrences startin g 12/01/2022 until 12/01/2023 End: 12-01-2023 Thyroxine (T4) free [Mass/volume] in Serum or Plasma T4 FREE/FREE THYROX Lab Routine Hypothyroidism, unspecified type Every 4 months for 3 Occurrences starting 12/01/2022 until 12/01/2023 [facility] Work Phone: Comment on above: Every 4 months for 3 Occurrences startin g 12/01/2022 until 12/01/2023 End: 12-01-2023 Triiodothyronine (T3) Free [Mass/volume] in Serum or Plasma T3 FREE BLD Lab Routine Hypothyroidism, unspecified type Every 4 months for 3 Occurrences starting 12/01/2022 until 12/01/2023 [facility] Work Phone: Comment on above: Every 4 months for 3 Occurrences startin g 12/01/2022 until 12/01/2023 End: 06-28-2023 US Retroperitoneum limited [facility] Work Phone: Comment on above: Once for 1 Occurrences starting 06/28/20 23 until 06/28/2023 End: 04-05-2022 Vitamin D 1,25 Dihydroxy Vitamin D 1,25 Dihydroxy Lab Routine Once for 1 Occurrences starting 04/05/2022 until 04/05/2022 [employer] Work Phone: Comment on above: Once for 1 Occurrences starting 04/05/20 until 04/05/2022 Vitamin D 1,25 Dihydroxy Vitamin D 1,25 Dihydroxy Lab Routine 04/05/2022 2:08 PM EDT [employer] Work Phone: End: 03-04-2020 Vitamin D 25 Hydroxy Vitamin D 25 Hydroxy Lab Routine Once for 1 Occurrences starting 03/04/2020 until 03/04/2020 [facility] Comment on above: Once for 1 Occurrences starting 03/04/20 until 03/04/2020 Vitamin D 25 Hydroxy Vitamin D 2 5 Hydroxy Lab Routine 03/04/2020 11:21 AM EDT Mar[facility] [employer] End: 01-13-2021 XR Shoulder Left 2 VW XR Shoulder Left 2 VW Imaging Routine Once for 1 Occurrences starting 01/13/2021 until 01/13/2021 [employer] Work Phone: Comment on above: Once for 1 Occurrences starting 01/14/20 until 01/13/2021 XR Shoulder Left 2 VW XR Shoulde r Left 2 VW Imaging Routine 01/13/2021 2:19 PM EDT [facility] Work Phone: [facility] Immunizations Immunization Date Immunization Notes Care Provider [facility] 06-29-2024 influenza vaccine tiss-cult subunt (Flucelvax) STANDARD-DOSE injection 0.5 mL Sarah Duran MD Work Phone: [facility] 06-20-2023 influenza, injectabl e, quadrivalent, contains preservative Edith Pierce MD Work Phone: [facility] 06-20-2023 influenza virus vaccine, unspecified formulation Edith Pierce MD Work Phone: [facility] 05-07-2022 influenza virus vaccine, unspecified formulation Aster Sparks BINDER OPERATOR - CHEMICAL INSPECTOR Work Phone: [facility] 02-03-2022 Covid-19, Pfizer Gra y Top, Do Not Dilute, (Age 12 Y+), Kesha Wisdom MD Work Phone: [facility] 09-22-2021 Covid-19, Pfizer Gra y Top, Do Not Dilute, (Age 12 Y+), Kesha Wisdom MD Work Phone: [facility] [employer] 05-26-2021 influenza virus vaccine, unspecified formulation Shania Cho MD Work Phone: [facility] 12-26-2020 COVID-19 vaccine, ag e 12+ yr (PFIZER-BIONTECH - PURPLE TOP) Shania Cho MD Work Phone: [facility] Work Phone: 12-05-2020 COVID-19 vaccine, ag e 12+ yr (PFIZER-BIONTECH - PURPLE TOP) Shania Cho MD Work Phone: [facility] 07-04-2020 influenza virus vaccine, unspecified formulation Adrián Buckner BINDER OPERATOR - JEWELRY RACKER Work Phone: [facility] 08-31-2019 pneumococcal polysaccharide vaccine, 23 valent [facility] [place], [place] 12-04-2018 tetanus toxoid, redu janak diphtheria toxoid, and acellular pertussis vaccine, adsorbed [facility] [place], [place] 07-17-2018 pneumococcal conjuga te vaccine, 13 valent [facility] 05-20-2018 influenza, injectabl e, quadrivalent, preservative free [facility] [place] 05-20-2018 Influenza, Quadv, 6 mo and older, IM, PF (Flulaval, Fluarix) Zehra Villarrealmoriah [facility] 05-15-2016 Influenza Vaccine, unspecified formulation [facility] Payers Date Payer Category Payer Unknown [id number] 2025 Self-pay 2024 Commercial Managed C are - O JOSE G ESCALANTE EXCHANGE [id number] 2024 Medicare HMO [id number] 2024 Medicare [id number] 2017 Unknown [id number] 2015 Medicaid [id number] 2015 Unknown [id number] 2014 Medicare MEDICARE MEDICAR E PART A AND B xxxxxxxxxxx 2014-Present [phone] [place] [address] xxxxxxxxxxx [id number] 2004 Medicare 2004 Medicare [id number] 2004 Medicare [id number] .[id number] 1967 Unknown [id number] 2.840.1.408329.3.579.2 1967 Unknown [id number] 2.840.1.593880.3.579.2 1967 Unknown [id number] 2.840.1.811499.3.579.2 1967 Unknown [id number] 2.840.1.723943.3.579.2 1967 Unknown [id number] 2.840.1.910852.3.579.2 1967 Unknown [id number] 2.16840.1.665974.3.579.2 .668 1967 Unknown [id number] 2.16840.1.726573.3.579.2 .8 1967 Unknown [id number] 2.16840.1.245718.3.579.2 .8 1967 Unknown [id number] 2.840.1.683314.3.579.2 .1967 Unknown [id number] 2.840.1.837585.3.579.2 .1967 Unknown [id number] 2.840.1.692625.3.579.2 .1967 Unknown [id number] 2.840.1.302932.3.579.2 .1967 Unknown [id number] 2.0.1.656294.3.579.2 .668 Medicaid HMO [id number] 1.13.680.2 .[id number] Medicaid [id number] 1.2.840.138062.1.13.239.2 .[id number] Unknown Unknown [id number] 2.840.1.065091.3.579.2 .462 Unknown [id number] .[id number] .462 Unknown [id number] 2.840.1.981390.3.579.2 .462 Unknown [id number] 2.840.1.413789.3.579.2 .462 Unknown [id number] 2.840.1.410254.3.579.2 .462 Unknown [id number] 2.840.1.467392.3.579.2 .462 Social History Date Type Detail Facility Start: 03-08-2019 End: 09-05-2019 Tobacco smoking status NHIS Former smoker [facility] Start: 03-08-2019 End: 03-07-2025 Alcohol intake No [facility] JOSE MENDEZ Start: 03-28-2018 End: 03-15-2022 Tobacco Comment 25 years ago María [facility] JOSE MENDEZ Start: 1965 Sex Assigned At Not on file M viral Lr [facility] Start: 07-05-2019 End: 03-06-2025 Alcohol intake [facility]dr[facility] to SARS-CoV -2 (event) Unable to assess [facility] Start: 09-05-2019 End: 12-31-2019 Tobacco use and exposure Never used [facility] Start: 12-27-2021 End: 03-16-2023 Exposure to SARS-CoV-2 (event) Not sure [facility] Start: 07-04-2020 End: 03-07-2025 Alcohol intake [facility] Work Phone: Start: 08-15-1982 End: 08-15-1992 History of tobacco use Current smoker [facility] Start: 01-04-2020 End: 01-06-2022 Alcohol intake Current drinker of alcohol (finding) [facility] Start: 03-15-2022 History SDOH Alcohol Frequency 1 [employer] Work Phone: Start: 03-15-2022 History SDOH Physica l Activity DPW 0 [employer] Work Phone: Start: 08-15-1982 End: 08-15-1992 History of tobacco use Cigarette Smoker [facility] How often to you hav e a drink containing alcohol? Never [facility] How many standard drinks containing alcohol do you have on a typical day? Patient does not drink [facility] Within the last year , have you been afraid of your partner or ex-partner? No [facility] Start: 03-15-2022 Sex Female (finding) [facility] (I/We) worried wheth er (my/our) food would run out before (I/we) got money to buy more. Never true [facility] Are you now , , , , never or living with a partner? Never [facility] Do you feel stress - tense, restless, nervous, or anxious, or unable to sleep at night because your mind is troubled all the time - these days [OSQ] Not at all [facility] Start: 1965 Sex assigned at Female S [facility] Start: 10-03-2024 Gender identity Identifies as female gender (finding) [facility] Start: 10-03-2024 Sexual orientation Heterosexual (fin ding) [facility] How often do you nee d to have someone help you when you read instructions, pamphlets, or other written material from your doctor or pharmacy [SILS] Sometimes [facility] How often do you nee d to have someone help you when you read instructions, pamphlets, or other written material from your doctor or pharmacy [SILS] Always [facility] Do you feel stress - tense, restless, nervous, or anxious, or unable to sleep at night because your mind is troubled all the time - these days [OSQ] To some extent [facility] Work Phone: Functional Status Date Assessment Result Facility 03-06-2025 Total score [AUDIT-C] 0 03/06/20 9:54 PM EDT Leticia Cordero RN [facility] 12-30-2024 Total score [AUDIT-C] 0 12/31/19 9:24 PM EDT Sherice Ramachandran RN [facility] 12-29-2024 Total score [AUDIT-C] 0 12/30/19 8:49 PM EDT Valentino Gan, IDALIA [facility] 12-25-2024 Total score [AUDIT-C] 0 12/26/19 10:23 AM EDT Lorraine Castellon RN [facility] Clinical Notes 10-13-2017 to 03-15-2025 Pastora Garner RN - 03/15/2025 12:30 PM Gopal Garner RN - 03/15/2025 12:30 PM Lesley Villanueva RN - 03/11/2025 10:00 AM EDTCare Coordination - Unknown Case Management - 03/15/2025 12:20 PM EDT Note Date & Type Note Facility 03-15-2025 Nurse Note Report called and given to the nurse at the facility [facility] 03-15-2025 Nurse Note Report called and given to the nurse at the facility Wound Care consulted for Pressure Injury Prevention. Pt's Adam score= 15 on 03/10/2025 Pt in bed for assessment, turned for posterior assessment independently. Pt's pressure points assessed: Pt's Heels, Sacrum/Coccyx, Back, Elbows, Occiput and Ears are all blanching and intact. Pt with PureWick in place. Skin intact on Medial Thighs and Labia. Left Upper Thigh: Fragile, Non-blanchable erythema noted. Wound tissue Amagon and Red with peeling skin. Pt denies pain. Kayley-wound skin intact. Buttock Right: Amagon and Red Tissue noted. Pt denies pain. Kayley-wound skin intact. Placing Wound Care/Ostomy CHEMICAL INSPECTOR consult. Instructed pt on pressure injury prevention and importance of turning/postioning every 2 hrs while in bed and every 15 min while sitting in chair. Pt verbalized understanding however Pt did not demonstrate understanding and recommend reinforcement. Pt incontinent of large amount of urine. Brief in place, soiled. All bed linens and pt gown soiled. Fitted sheet changed, new glide sheet obtained and applied, brief removed, pads changed, incontinence care provided, bed bath with warm wipes performed, and barrier ointment applied ( see below for additional care given). Prevention Measures in place, including: Price sheet (replaced) with pillows/wedges (in place), Sacral foam (obtained and applied), Zinc/Moisture Barrier ointment (in place), Moisture absorbant pad (replaced), Waffle chair cushion (to be obtained for pt when up to chair). Physical Therapy present and agreed to Turn Pt to Right with wedge, replace PureWick off load heels with pillows, turn bed alarm on. Skin Care precaution order set in place. Dietitian consult in place. PT/OT consult in place. D/W welder fitter gas skin assessment, preventions, and interventions implemented. Will continue to follow pt. Please [employer] for any questions or concerns. HERNÁN Esquivel, RN documented in this encounter [facility] 03-15-2025 Miscellaneous Notes Patient Choice Patient Name: JESSY MCKEON Date of : 1965 All Providers Sent Referral Name: [facility] Phone: [phone] Address: [address] [place] [address] Discharge med list transmitted to [facility] via [facility] per TCC request. Confirmed pickup time of 1400 by [facility] at phone number [phone]. Location of facility drop off is [facility]. Facility notified via [employer], TCC notified on secure chat. DC order received for [facility], auth approved. Task ATHLETIC GEAR CUSTODIAN to send MAR, DC paperwork and 7000 to [facility]. SW aware. RN aware. Patient aware. CM and ATHLETIC GEAR CUSTODIAN arranging transport. Care Management Progress Note Short Medical why still here: Nephrology following. Got auth for [facility], plan to send today. Will follow. Planned Discharge Disposition: Snf Facility Barriers/Today we still Wait: Facility pre-cert Length of Stay (Days): 8 GMLOS: 2.6 [facility] approved. Secure chat Dr Hayes, says patient will be ready tmw. Care Management Progress Note Short Medical why still here: Nephrology following. Creatinine 03/13, 2.55. Awaiting todays labs. Plan to go to [facility] start 03/11. Will follow. Planned Discharge Disposition: Snf Facility Barriers/Today we still Wait: Facility pre-cert, Clinical stability, Java Groovy Developer recommendations (comment) Length of Stay (Days): 7 GMLOS: 2.6 Care Management Progress Note Short Medical why still here: Nephrology following. Na 132. Creatinine 2.55 was 2.23. Plan to to to [facility] started 03/11. Will follow. Planned Discharge Disposition: Snf Facility Barriers/Today we still Wait: Java Groovy Developer recommendations (comment), Clinical stability, Facility pre-cert Length of Stay (Days): 6 GMLOS: 2.6. Care Management Progress Note Short Medical why still here: Lasix PO. Na 132 from 03/11. Plan to go to [facility]. Auth started yesterday, 03/11. Will follow. Planned Discharge Disposition: Snf Facility Barriers/Today we still Wait: Clinical stability, Java Groovy Developer recommendations (comment) Length of Stay (Days): 5 GMLOS: 2.6 7000 created in HENS per TCC request. Facility notified via Careport. Task ATHLETIC GEAR CUSTODIAN to send 7000 to [facility]. Secure chat Dr Tucker to complete IRASEMA. Secure chat from Dr Tucker to start auth. Told [facility] to start auth. Care Management Progress Note Short Medical why still here: Nephrology following. Na 132. Lasix PO. Plan to go to [facility]. Secure chat Dr Tucker for anticipated DC date. Planned Discharge Disposition: Snf Facility Barriers/Today we still Wait: Clinical stability Length of Stay (Days): 4 GMLOS: 2.6 [facility] informed ANTON that she received a call from someone at . ANTON called number back and it was Rn from [facility]- [phone]. Pt had been active with them and was wondering if pt needed HHC [place] ANTON updated RN that pt will be going to a SNF [place]. ANTON updated TCC. Accepted into [facility]. Patient is happy. Pt from [facility] living in [place]- [phone]. ANTON called [facility] and spoke with with MELODY. Per MELODY- pt's baseline is min assist. Staff gave her her meds. Staff assisted with bathing, etc. Pt did not amb-per her choice. ANTON updated AL that pt will go to an ECF [place]. ANTON will follow and updated AL on facility at [place]. Referral placed to SNF - [facility] via Careport per TCC request. Await review and response regarding ability to accept. TCC notified. Care Management Progress Note Short Medical why still here: Na 125, was 128 and 121 on admission. PT/OT ordered. PT recommended SNF. CM in ER stated patient wanted to go to [facility]. Task ATHLETIC GEAR CUSTODIAN to make a referral to [facility]. Patient from [place]. SW aware. Planned Discharge Disposition: Snf Facility Barriers/Today we still Wait: Administering IV medications, Clinical stability Length of Stay (Days): 1 GMLOS: No GMLOS Documented CM met with pt at bedside in the ED. CM saw that pt was at [facility] in January - This CM asked pt is she had an idea where she would want to dicharge to - would she want to gfo back to [facility] or select from a new list which I could print for her. Pt verbalized wanting to return to [facility]. Will need therapy evals. documented in this encounter [facility] 03-15-2025 Progress note Formatting of t his note might be different from the original. Patient Choice Patient Name: JESSY MCKEON Date of : 1965 All Providers Sent [facility] Phone: [phone] Address: [address] [place] [address] [facility] 03-15-2025 Progress note Formatting of t his note might be different from the original. Discharge med list transmitted to - [facility] via Lalina per TCC request. Confirmed pickup time of 1400 by transport [employer] at phone number [phone]. Location of facility drop off is [facility]. Facility notified via Lalina, TCC notified on secure chat. [facility] 03-15-2025 History of Present illness Narrative Images from the original note were not included. Nephrology Progress Note Patient: Jessy Mckeon Room number: [id number] A Date of Admit: 03/06/2025 LOS: 8 days Admitting physician: Clara Wyatt DO Referring physician: Ashley Hayes MD Outpatient Leach Cell Operator: Dr. Andre Assessment/Plan: 60F with history of Asperger syndrome, bipolar, CKD4, HTN, T2DM who presented with weakness/failure to thrive. Nephrology consulted for hyponatremia. #Normo-osmolar hyponatremia: Stable. Na 121 on arrival, now 132. -Likely combination of hypervolemic hyponatremia and elevated solutes from CKD. Documented history of diabetes insipidus however more recent issue has been hyponatremia. Multiple meds that could cause SIADH however unlikely with dilute urine studies. -Sosms low at 278 on arrival, last 291 -Uosms 104, Lizz 29 (in setting of lasix administration) -lipid panel nonelevated -Serum IF and FLCs without evidence of monoclonal disease #CKD4 #HTN -Cr 2.69, near baseline (2-2.5) although uptrending -Bps acceptable -UOP 2.2L/24 hrs Recommendations: -Trend renal function/Na daily -Off fluid restriction, counseled patient on keeping fluid intake within reason -Holding lasix with uptrending Cr Would offer no objection to discharge from a renal standpoint at present as long as labs can be drawn at facility. Thank you again for allowing us to participate in the care of Ms. Mckeon. Please text/call/page with any questions or concerns. Kavon Galo DO Nephrology [facility] ([facility]) Pager: [phone] Office Office Electronically Signed on 03/15/2025 at 11:22 AM Subjective: Patient resting comfortably this morning. No distress. Expresses that she would like long-term placement. Past Medical History: Medical History[1] Medications: MAR reviewed. Scheduled Meds[2] Continuous Meds[3] Review of Systems: All other ROS negative except those noted above. Physical Exam: Vitals: 03/14/25 0816 03/14/25195803/15/25 0453 03/15/25 0833 BP: 132/71 123/89 124/73 BP Location: Right arm Left arm Left arm Patient Position: Lying Lying Lying Pulse: 53 65 50 Resp: 16 16 16 Temp: 36.6 C (97.8 F) (!) 35.9 C (96.6 F) 36.6 C (97.8 F) TempSrc: Temporal Temporal Temporal SpO2: 97% 97% 100% Weight: 104 kg (230 lb) Height: Admission weight: 109 kg (240 lb) Wt Readings from Last 3 Encounters: 03/15/25 104 kg (230 lb) 01/08/25 117 kg (258 lb 3.2 oz) 12/29/24 113 kg (250 lb) I/O last 3 completed shifts: In: 1605 (15.4 mL/kg) [P.O.:1605] Out: 4750 (45.5 mL/kg) [Urine:4750 (1.3 mL/kg/hr)] Weight: 104.3 kg Net IO Since Admission: -9,115 mL [03/15/25 1120] General: NAD HEENT: Sclera clear, EOMI, MMM, Nose/ears/hearing grossly normal Neck: Supple, trachea midline, no mass, no TM Heart: RRR, no rub/heave Lungs: Clear bilaterally, unlabored Abd: Soft, (+) BS, non-tender Ext: No edema Neuro: No tremor/myoclonus Skin: warm and dry, no rash LABS: No results for input(s): "WBC", "HGB", "HCT", "MCV", "PLT" in the last 72 hours. No lab exists for component: DIFF Lab Results Component Value Date IRON 37 (L) 01/02/2025 TIBC 146 (L) 01/02/2025 FERRITIN 254 (H) 10/04/2024 Lab Results Component Value Date [id number] 689 03/08/2025 FOLATE 3.7 (L) 03/08/2025 Recent Labs 03/13/25 0027 03/14/25 0824 03/15/25 0534 NA 132* 133* 132* K 4.5 4.4 4.7 CL 100 101 100 CO2 25 22 21* BUN 43* 43* 53* CREATININE 2.55* 2.67* 2.69* GLUCOSE 95 76 78 CALCIUM 8.5 8.9 9.1 PHOS 5.2* 5.3* 5.5* ANIONGAP 7 10 11 Lab Results Component Value Date PTH 161.6 (H) 04/17/2024 CALCIUM 9.1 03/15/2025 PHOS 5.5 (H) 03/15/2025 No components found for: "XEVH85R" Diagnostic Studies: Personally reviewed available data [labs, MARS, radiologic studies, and electronic records]. Parts of assessment/plan may have been copied from prior entry and amended as needed. It reflects full evaluation and pathophysiology of processes involved. [1] Past Medical History: Diagnosis Date Acid reflux Anxiety Arthritis Asperger syndrome Bipolar disorder (HCC) Chronic kidney disease stage 4 kidney failure Chronic pain Depression Edema of both legs GERD (gastroesophageal reflux disease) Hemorrhoids Hyperlipidemia Hypertension Hypothyroidism Iron (Fe) deficiency anemia Nephrogenic diabetes insipidus (HCC) Pain management Retention of urine, unspecified Sciatica SOB (shortness of breath) GRANT Type II or unspecified type diabetes mellitus without mention of complication, not stated as uncontrolled (HCC) Urinary incontinence nightly [2] bisacodyl, 10 mg, Rectal, Daily buprenorphine, 1 patch, TransDERmal, Weekly divalproex, 250 mg, Oral, TID WC DULoxetine, 60 mg, Oral, Daily lamoTRIgine, 150 mg, Oral, Nightly levothyroxine, 125 mcg, Oral, Daily metoprolol tartrate, 75 mg, Oral, BID risperiDONE, 3 mg, Oral, Nightly rosuvastatin, 10 mg, Oral, Daily sodium chloride 0.9%, 5-40 mL, IntraVENous, q12h traZODone, 100 mg, Oral, Nightly [3] Hospitalist Progress Note 03/15/2025 [phone]: Please page me ([phone]) for patient care issues. [phone]: Please page [facility] night Hospitalist for any issues. Subjective: Admit Date: 03/06/2025 PCP: Edith Pierce MD Room#: [id number]/[id number] A Brief Hospital course: Jessy is a 60 y.o. female with past medical history below who presents with complaints of generalized weakness and an inability to care for self. Patient was just discharged about 1.5 months ago from here with similar presentation, was discharged to custodial facility. Patient states that she is not receiving a required amount of care for her, EMS was apparently called for a lift assist after she slid from a chair to the floor, and was requesting placement in a new facility. In the ED she was hemodynamically stable her only lab abnormality compared to baseline was her sodium was low at 121. Admitted for further evaluation and treatment Nephrology following, cleared for discharge PT/OT recommends SNF Patient will be discharged to SNF today in stable condition Interval History: No acute overnight issues. Patient is seen and examined Comfortably resting in her bed, NAD, denies any new acute complaints Vitals reviewed, stable Labs reviewed, sodium 132, creatinine 2.69 Case and plan of care discussed with patient and bedside nurse. All questions answered Adult diet Regular; Low Sodium (2 gm) @[id number]@ 24HR INTAKE/OUTPUT: Intake/Output Summary (Last 24 hours) at 03/15/2025 1049 Last data filed at 03/15/2025 0900 Gross per 24 hour Intake 1290 ml Output 2200 ml Net -910 ml Past Medical History: Medical History[1] LABS: CBC: No results for input(s): "WBC", "RBC", "HGB", "HCT", "MCV", "RDW", "PLT" in the last 72 hours. BMP: Recent Labs 03/13/25 0027 03/14/25 0824 03/15/25 0534 NA 132* 133* 132* K 4.5 4.4 4.7 CL 100 101 100 CO2 25 22 21* BUN 43* 43* 53* CREATININE 2.55* 2.67* 2.69* GLUCOSE 95 76 78 CALCIUM 8.5 8.9 9.1 ANIONGAP 7 10 11 LIVER PROFILE:No results for input(s): "AST", "ALT", "BILITOT", "ALKPHOS", "PROT" in the last 72 hours. No lab exists for component: LABALBU PT/INR: No results for input(s): "PROTIME", "INR" in the last 72 hours. CARDIAC ENZYMES: No results for input(s): "TROPONINI" in the last 72 hours. Procalcitonin: No results found for: "PROCAL" COVID-19 PCR: No results for input(s): "COVID19" in the last 72 hours. Objective: Vitals: BP 124/73 (BP Location: Left arm, Patient Position: Lying) Pulse 50 Temp 36.6 C (97.8 F) (Temporal) Resp 16 Ht 5' 3" (1.6 m) Wt 230 lb (104 kg) SpO2 100% BMI 40.74 kg/m Pulse Ox: SpO2 Av.5 % Min: 97 % Max: 100 % Supplemental O2: Physical Exam Constitutional: Appearance: She is obese. HENT: Head: Normocephalic and atraumatic. Mouth/Throat: Mouth: Mucous membranes are moist. Cardiovascular: Rate and Rhythm: Bradycardia present. Pulmonary: Effort: Pulmonary effort is normal. Abdominal: Palpations: Abdomen is soft. Skin: General: Skin is warm and dry. Neurological: Mental Status: She is alert. Psychiatric: Mood and Affect: Mood normal. Medications: Continuous Meds[2] Scheduled Meds[3] Assessment Acute, acute on chronic, unstable/uncontrolled chronic problems/diagnoses: Recurrent falls Unable to care for self Hyponatremia with sodium of 121 on admission Bradycardia - reduce lopressor to 75mg BID (was 100mg bid). Stable chronic problems affecting care, new non-acute diagnoses: GERD History of anxiety and depression Chronic arthritis History of Asperger syndrome History of bipolar disorder CKD stage IV - Nephrology following. Chronic pain syndrome-sees pain management History of hemorrhoids Chronic hypertension Hyperlipidemia History of sciatica Diabetes mellitus type 2 History of urine incontinence Plan - Nephrology following - Continue with lopressor to 75mg bid. - Robitussin as needed started - PT saw and recommending SNF. - Patient will be discharged to SNF today in stable condition - AM labs Extended Emergency Contact Information Primary Emergency Contact: Pita Jara Mobile Relation: Parent Preferred language: Northern Irish Mechanism Inspector needed? No Secondary Emergency Contact: EstefaniMamadou Relation: Father Total time spent including tmyz-qj-wrak and pmg-rsaz-xm-face: More than 31 minutes Ashley Hayes MD Division of Hospitalist Medicine Inpatient Medical Services/[facility] PAGER: Gilbert trevizo [1] Past Medical History: Diagnosis Date Acid reflux Anxiety Arthritis Asperger syndrome Bipolar disorder (HCC) Chronic kidney disease stage 4 kidney failure Chronic pain Depression Edema of both legs GERD (gastroesophageal reflux disease) Hemorrhoids Hyperlipidemia Hypertension Hypothyroidism Iron (Fe) deficiency anemia Nephrogenic diabetes insipidus (HCC) Pain management Retention of urine, unspecified Sciatica SOB (shortness of breath) GRANT Type II or unspecified type diabetes mellitus without mention of complication, not stated as uncontrolled (HCC) Urinary incontinence nightly [2] [3] bisacodyl, 10 mg, Rectal, Daily buprenorphine, 1 patch, TransDERmal, Weekly divalproex, 250 mg, Oral, TID WC DULoxetine, 60 mg, Oral, Daily lamoTRIgine, 150 mg, Oral, Nightly levothyroxine, 125 mcg, Oral, Daily metoprolol tartrate, 75 mg, Oral, BID risperiDONE, 3 mg, Oral, Nightly rosuvastatin, 10 mg, Oral, Daily sodium chloride 0.9%, 5-40 mL, IntraVENous, q12h traZODone, 100 mg, Oral, Nightly Hospitalist Progress Note 03/14/2025 [phone]: Please page me ([phone]) for patient care issues. [phone]: Please page [facility] Hospitalist for any issues. Subjective: Admit Date: 03/06/2025 PCP: Edith Pierce MD Room#: [id number]/[id number] A Brief Hospital course: Jessy is a 60 y.o. female with past medical history below who presents with complaints of generalized weakness and an inability to care for self. Patient was just discharged about 1.5 months ago from here with similar presentation, was discharged to custodial facility. Patient states that she is not receiving a required amount of care for her, EMS was apparently called for a lift assist after she slid from a chair to the floor, and was requesting placement in a new facility. In the ED she was hemodynamically stable her only lab abnormality compared to baseline was her sodium was low at 121. Admitted for further evaluation and treatment Nephrology following PT/OT recommends SNF Case management working on placement Interval History: No acute overnight issues. Patient is seen and examined She is resting in her bed comfortably, not in acute distress She reports no new acute complaints except some cough Vitals reviewed, stable Labs reviewed, sodium 133, creatinine 2.67 Case and plan of care discussed with patient and bedside nurse. All questions answered Adult diet Regular; Low Sodium (2 gm) @[id number]@ 24HR INTAKE/OUTPUT: Intake/Output Summary (Last 24 hours) at 03/14/2025 1531 Last data filed at 03/14/2025 1506 Gross per 24 hour Intake 1105 ml Output 3350 ml Net -2245 ml Past Medical History: Medical History[1] LABS: CBC: No results for input(s): "WBC", "RBC", "HGB", "HCT", "MCV", "RDW", "PLT" in the last 72 hours. BMP: Recent Labs 03/12/25 0825 03/13/25 0027 03/14/25 0824 NA 133* 132* 133* K 4.8 4.5 4.4 CL 103 100 101 CO2 20* 25 22 BUN 35* 43* 43* CREATININE 2.23* 2.55* 2.67* GLUCOSE 104* 95 76 CALCIUM 9.0 8.5 8.9 ANIONGAP 10 7 10 LIVER PROFILE:No results for input(s): "AST", "ALT", "BILITOT", "ALKPHOS", "PROT" in the last 72 hours. No lab exists for component: LABALBU PT/INR: No results for input(s): "PROTIME", "INR" in the last 72 hours. CARDIAC ENZYMES: No results for input(s): "TROPONINI" in the last 72 hours. Procalcitonin: No results found for: "PROCAL" COVID-19 PCR: No results for input(s): "COVID19" in the last 72 hours. Objective: Vitals: BP 132/71 (BP Location: Right arm, Patient Position: Lying) Pulse 53 Temp 36.6 C (97.8 F) (Temporal) Resp 16 Ht 5' 3" (1.6 m) Wt 230 lb 8 oz (105 kg) SpO2 97% BMI 40.83 kg/m Pulse Ox: SpO2 Av.3 % Min: 96 % Max: 99 % Supplemental O2: Physical Exam Constitutional: Appearance: She is obese. HENT: Head: Normocephalic and atraumatic. Mouth/Throat: Mouth: Mucous membranes are moist. Cardiovascular: Rate and Rhythm: Bradycardia present. Pulmonary: Effort: Pulmonary effort is normal. Abdominal: Palpations: Abdomen is soft. Skin: General: Skin is warm and dry. Neurological: Mental Status: She is alert. Psychiatric: Mood and Affect: Mood normal. Medications: Continuous Meds[2] Scheduled Meds[3] Assessment Acute, acute on chronic, unstable/uncontrolled chronic problems/diagnoses: Recurrent falls Unable to care for self Hyponatremia with sodium of 121 on admission Bradycardia - reduce lopressor to 75mg BID (was 100mg bid). Stable chronic problems affecting care, new non-acute diagnoses: GERD History of anxiety and depression Chronic arthritis History of Asperger syndrome History of bipolar disorder CKD stage IV - Nephrology following. Chronic pain syndrome-sees pain management History of hemorrhoids Chronic hypertension Hyperlipidemia History of sciatica Diabetes mellitus type 2 History of urine incontinence Plan - Nephrology following - Continue with lopressor to 75mg bid. - Robitussin as needed started - PT saw and recommending SNF. TCC sent referral to [facility]. Auth pending - AM labs Extended Emergency Contact Information Primary Emergency Contact: EstefaniPita Mobile Relation: Parent Preferred language: Northern Irish Mechanism Inspector needed? No Secondary Emergency Contact: Mamadou Jara Relation: Father Total time spent including voaa-zj-xwkr and moy-okxu-jg-face: 35 minutes Ashley Hayes MD Division of Hospitalist Medicine Inpatient Medical Services/[facility] PAGER: Epic chat [1] Past Medical History: Diagnosis Date Acid reflux Anxiety Arthritis Asperger syndrome Bipolar disorder (HCC) Chronic kidney disease stage 4 kidney failure Chronic pain Depression Edema of both legs GERD (gastroesophageal reflux disease) Hemorrhoids Hyperlipidemia Hypertension Hypothyroidism Iron (Fe) deficiency anemia Nephrogenic diabetes insipidus (HCC) Pain management Retention of urine, unspecified Sciatica SOB (shortness of breath) GRANT Type II or unspecified type diabetes mellitus without mention of complication, not stated as uncontrolled (HCC) Urinary incontinence nightly [2] [3] bisacodyl, 10 mg, Rectal, Daily buprenorphine, 1 patch, TransDERmal, Weekly divalproex, 250 mg, Oral, TID WC DULoxetine, 60 mg, Oral, Daily lamoTRIgine, 150 mg, Oral, Nightly levothyroxine, 125 mcg, Oral, Daily metoprolol tartrate, 75 mg, Oral, BID risperiDONE, 3 mg, Oral, Nightly rosuvastatin, 10 mg, Oral, Daily sodium chloride 0.9%, 5-40 mL, IntraVENous, q12h traZODone, 100 mg, Oral, Nightly Nutrition Assessment Type and Reason for Visit: Reassess Nutrition Recommendations/Plan: Continue Adult diet Regular; Low Sodium (2 gm) Supplement(s): added vanilla glucerna 1x/day (provides 220 kcals, 10 grams protein, 8 oz per serving) per MNT protocol Pt is a meal service assist to ensure participation in room service Please document % of po/ONS intakes in nsg flowsheets for accurate review of po trends Will continue to monitor labs, meds, po intakes and/or enteral nutrition tolerance, skin integrity, wt trends, and overall nutrition status - RD to follow weekly Malnutrition Assessment: Malnutrition Status: Insufficient data Context: Acute Illness Findings of the 6 clinical characteristics of malnutrition: Energy Intake: 75% or less of estimated energy requirements for 7 or more days Weight Loss: No significant weight loss (pt states intentional wt loss) Body Fat Loss: No significant body fat loss Muscle Mass Loss: No significant muscle mass loss Fluid Accumulation: Mild (BLE Edema: Non-pitting) Clinical Nursing Instructor Strength: Not Performed 03/13/25 Interval History: No overnight issues. She is laying in bed resting comfortably. Denies chest pain or sob. No abdominal pain, nausea, vomiting. No fevers or chills. 03/14/25 Interval History: No acute overnight issues. Patient is seen and examined She is resting in her bed comfortably, not in acute distress She reports no new acute complaints except some cough Vitals reviewed, stable Labs reviewed, sodium 133, creatinine 2.67 Nutrition Assessment: LOS# 7. 60F w/ significant PMHx: HTN, HLD, hypothyroidism, CKD IV, Asperger syndrome, EDSON, and bipolar disorder who arrived by EMS from [facility] after falling off of her couch with another fall and found to have severe hyponatremia; Likely combination of hypervolemic hyponatremia and elevated solutes from CKD. Documented history of diabetes insipidus however more recent issue has been hyponatremia. Multiple meds that could cause SIADH however unlikely with dilute urine studies per nephro. Claudia held w/ up trending sCr. Continues a 2 g low sodium diet. Fluid restriction was lifted (1.5 -> 2L on 03/10, now liberalized completely) as serum osmolality has normalized. Historically likes vanilla ensure. Serum sodium continues to gradually trend up, however PO4 levels increasing w/ declines in renal fxn. PO4 trends 4.2> 4.6> 4.8> 5.2> 5.3 current. Claudia held w/ up trending sCr. Pt seen at bedside this date. She states she is "too thirsty to eat." Pt believes she is still on a fluid restriction. Pt redirected on current diet order. She continues to fall asleep or nod off. Asking for a warm blanket and telling me she is peeing (pure wick in place). She is agreeable to vanilla ONS to support po acceptance. Denies N/V or dysphagia. Skin noted - unstg PI resolved. Discussed concern for wt loss and she states it is intentional. Nutrition Related Findings: Wound Type: (per wound care 03/12/25: 1.) Right Buttock: Unstageable pressure injury (RESOLVED); 2.) Left Posterior thigh: Scar Tissue) Isolation Status: No active isolations Food Allergies: NKFA Teeth: Missing teeth Room Service: Assist Adam Scale Score: 15 BLE Edema: Non-pitting Abdomen Inspection: Soft, Nondistended; Abdominal Tenderness: Nontender Bowel Sounds (All Quadrants): Active; Passing Flatus: Yes Last BM Date: 03/13/25 GI symptoms: Decreased appetite Nutrition History: Independent of feeding and Resides at [facility] Level of Consciousness: Alert; Orientation Level: Oriented X4 Code Status, Oxygen Needs, Vital Signs, I/Os: Code Status: Full Code Oxygen Therapy: SpO2: 97 %; Oxygen Therapy: None (Room air) Vital Signs: Temp: 36.6 C (97.8 F); Heart Rate: 53; Resp: 16; BP: 132/71; MAP (mmHg): 91 Net IO Since Admission: -8,505 mL [03/14/25 1612] Intake/Output Summary (Last 24 hours) at 03/14/2025 1612 Last data filed at 03/14/2025 1600 Gross per 24 hour Intake 1605 ml Output 3350 ml Net -1745 ml Labs/Meds Reviewed: Scheduled Meds[1] Continuous Meds[2] BMP: Recent Labs 03/12/25 0825 03/13/25 0027 03/14/25 0824 NA 133* 132* 133* K 4.8 4.5 4.4 CL 103 100 101 CO2 20* 25 22 BUN 35* 43* 43* CREATININE 2.23* 2.55* 2.67* GLUCOSE 104* 95 76 CALCIUM 9.0 8.5 8.9 PHOS 4.8* 5.2* 5.3* Current Nutrition Therapies: Adult diet Regular; Low Sodium (2 gm) Current Oral Intake Average Meal Intake: 26-50%, 1-25% Average Supplements Intake: None Ordered Anthropometric Measures: Height: 160 cm (5' 3") Current Body Weight: 104 kg (230 lb) Weight Source: Bed Scale Admission Body Weight: 113 kg (249 lb) (bed scale) Usual Body Weight: 113 kg (250 lb) % Weight Change (Calculated): -8 [place] Body Weight (lbs) (Calculated): 115 lbs [place] Body Weight (Kg) (Calculated): 52 kg % [place] Body Weight (Calculated): 214.8 % BMI (kg/m2) (Calculated): 40.8 Weight Adjustment For: No Adjustment BMI (Calculated): 40.84 Weight: 105 kg (230 lb 8 oz) Weight Method: Bed scale Weight History: Wt Readings from Last 20 Encounters: 03/14/25 105 kg (230 lb 8 oz) 01/08/25 117 kg (258 lb 3.2 oz) 12/29/24 113 kg (250 lb) 12/28/24 109 kg (240 lb) 12/25/24 136 kg (300 lb) 11/15/24 136 kg (300 lb) 11/03/24 136 kg (300 lb) 10/04/24 131 kg (288 lb 6.4 oz) 09/18/24 123 kg (272 lb) 08/10/24 120 kg (263 lb 7.2 oz) 06/28/24 125 kg (275 lb 9.6 oz) 06/14/24 125 kg (276 lb) 09/04/23 111 kg (245 lb) 06/20/23 111 kg (245 lb) 03/22/23 113 kg (249 lb 4.8 oz) 06/01/22 108 kg (238 lb) 05/03/22 110 kg (243 lb) 03/30/22 108 kg (237 lb) 03/24/22 109 kg (240 lb) 03/15/22 108 kg (239 lb) Nutrition Interventions: Food and/or Nutrient Delivery: Continue Current Diet and Start Oral Nutrition Supplement Nutrition Education/Counseling: No recommendation at this time Coordination of Nutrition Care: Continue to monitor while inpatient Plan of Care discussed with: Patient, Nurse, and NA Goals: Previous Goal Met: No Progress toward Goal(s) Goals: Meet at least 75% of estimated needs, other (specify) Specify Other Goals: improvement in nutrition r/t labs Nutrition Monitoring and Evaluation: Behavioral-Environmental Outcomes: None Identified Food/Nutrient Intake Outcomes: Food and Nutrient Intake Physical Signs/Symptoms Outcomes: Biochemical Data, Weight, Fluid Status or Edema Discharge Planning: Too soon to determine Zehra Gomez MS, RD, LD Contact: or [employer] Chat (dial [phone] from hospital phone) [1] bisacodyl, 10 mg, Rectal, Daily buprenorphine, 1 patch, TransDERmal, Weekly divalproex, 250 mg, Oral, TID WC DULoxetine, 60 mg, Oral, Daily lamoTRIgine, 150 mg, Oral, Nightly levothyroxine, 125 mcg, Oral, Daily metoprolol tartrate, 75 mg, Oral, BID risperiDONE, 3 mg, Oral, Nightly rosuvastatin, 10 mg, Oral, Daily sodium chloride 0.9%, 5-40 mL, IntraVENous, q12h traZODone, 100 mg, Oral, Nightly [2] Images from the original note were not included. Nephrology Progress Note Patient: Jessy Mckeon Room number: [id number] A Date of Admit: 03/06/2025 LOS: 7 days Admitting physician: Clara Wyatt DO Referring physician: Estephania Gonzalez MD Outpatient Leach Cell Operator: Dr. Andre Assessment/Plan: 60F with history of Asperger syndrome, bipolar, CKD4, HTN, T2DM who presented with weakness/failure to thrive. Nephrology consulted for hyponatremia. #Normo-osmolar hyponatremia: Stable. Na 121 on arrival, now 133. -Likely combination of hypervolemic hyponatremia and elevated solutes from CKD. Documented history of diabetes insipidus however more recent issue has been hyponatremia. Multiple meds that could cause SIADH however unlikely with dilute urine studies. -Sosms low at 278 on arrival, last 291 -Uosms 104, Lizz 29 (in setting of lasix administration) -lipid panel nonelevated -Serum IF and FLCs without evidence of monoclonal disease #CKD4 #HTN -Cr 2.67, near baseline (2-2.5) although uptrending -Bps acceptable -UOP 3.3L/24 hrs Recommendations: -Trend renal function/Na daily -Removed fluid restriction, will continue to behavioral school counselors patient on limiting fluids -Holding lasix with uptrending Cr Thank you for this consult, we will continue to follow. Please call or page if any questions [facility] Pager: [phone] Office: [phone]. Office Subjective: Interval history/events: Patient resting comfortably this morning. No distress. Past Medical History: Medical History[1] Medications: MAR reviewed. Scheduled Meds[2] Continuous Meds[3] Review of Systems: All other ROS negative except those noted above. Physical Exam: Vitals: 03/13/257 03/13/25 2158 03/14/25 0500 03/14/25 0816 BP: 123/54 132/71 BP Location: Right arm Right arm Patient Position: Lying Lying Pulse: 55 53 53 Resp: 16 16 Temp: 36.1 C (97 F) 36.6 C (97.8 F) TempSrc: Temporal Temporal SpO2: 97% 96% 97% Weight: 105 kg (230 lb 8 oz) Height: Admission weight: 109 kg (240 lb) Wt Readings from Last 3 Encounters: 03/14/25 105 kg (230 lb 8 oz) 01/08/25 117 kg (258 lb 3.2 oz) 12/29/24 113 kg (250 lb) I/O last 3 completed shifts: In: 2945 (28.2 mL/kg) [P.O.:2945] Out: 4600 (44 mL/kg) [Urine:4600 (1.2 mL/kg/hr)] Weight: 104.6 kg Net IO Since Admission: -8,205 mL [03/14/25 1100] General: NAD HEENT: Sclera clear, EOMI, MMM, Nose/ears/hearing grossly normal Neck: Supple, trachea midline, no mass, no TM Heart: RRR, no rub/heave Lungs: Clear bilaterally, unlabored Abd: Soft, (+) BS, non-tender Ext: No edema Neuro: No tremor/myoclonus Skin: warm and dry, no rash LABS: No results for input(s): "WBC", "HGB", "HCT", "MCV", "PLT" in the last 72 hours. No lab exists for component: DIFF Lab Results Component Value Date IRON 37 (L) 01/02/2025 TIBC 146 (L) 01/02/2025 FERRITIN 254 (H) 10/04/2024 Lab Results Component Value Date [id number] 03/08/2025 FOLATE 3.7 (L) 03/08/2025 Recent Labs 03/12/25 0825 03/13/25 0027 03/14/25 0824 NA 133* 132* 133* K 4.8 4.5 4.4 CL 103 100 101 CO2 20* 25 22 BUN 35* 43* 43* CREATININE 2.23* 2.55* 2.67* GLUCOSE 104* 95 76 CALCIUM 9.0 8.5 8.9 PHOS 4.8* 5.2* 5.3* ANIONGAP 10 7 10 Lab Results Component Value Date PTH 161.6 (H) 04/17/2024 CALCIUM 8.9 03/14/2025 PHOS 5.3 (H) 03/14/2025 No components found for: "[id number]" Diagnostic Studies: Personally reviewed available data [labs, MARS, radiologic studies, and electronic records]. Parts of assessment/plan may have been copied from prior entry and amended as needed. It reflects full evaluation and pathophysiology of processes involved. [1] Past Medical History: Diagnosis Date Acid reflux Anxiety Arthritis Asperger syndrome Bipolar disorder (HCC) Chronic kidney disease stage 4 kidney failure Chronic pain Depression Edema of both legs GERD (gastroesophageal reflux disease) Hemorrhoids Hyperlipidemia Hypertension Hypothyroidism Iron (Fe) deficiency anemia Nephrogenic diabetes insipidus (HCC) Pain management Retention of urine, unspecified Sciatica SOB (shortness of breath) GRANT Type II or unspecified type diabetes mellitus without mention of complication, not stated as uncontrolled (HCC) Urinary incontinence nightly [2] bisacodyl, 10 mg, Rectal, Daily buprenorphine, 1 patch, TransDERmal, Weekly divalproex, 250 mg, Oral, TID WC DULoxetine, 60 mg, Oral, Daily lamoTRIgine, 150 mg, Oral, Nightly levothyroxine, 125 mcg, Oral, Daily metoprolol tartrate, 75 mg, Oral, BID risperiDONE, 3 mg, Oral, Nightly rosuvastatin, 10 mg, Oral, Daily sodium chloride 0.9%, 5-40 mL, IntraVENous, q12h traZODone, 100 mg, Oral, Nightly [3] Images from the original note were not included. Nephrology Progress Note Patient: Jessy Mckeon Room number: [id number] A Date of Admit: 03/06/2025 LOS: 6 days Admitting physician: Clara Wyatt DO Referring physician: Estephania Gonzalez MD Outpatient Leach Cell Operator: Dr. Andre Assessment/Plan: 60F with history of Asperger syndrome, bipolar, CKD4, HTN, T2DM who presented with weakness/failure to thrive. Nephrology consulted for hyponatremia. #Normo-osmolar hyponatremia: Stable. Na 121 on arrival, now 132. -Likely combination of hypervolemic hyponatremia and elevated solutes from CKD. Documented history of diabetes insipidus however more recent issue has been hyponatremia. Multiple meds that could cause SIADH however unlikely with dilute urine studies. -Sosms low at 278 on arrival, last 291 -Uosms 104, Lizz 29 (in setting of lasix administration) -lipid panel nonelevated -Serum IF and FLCs without evidence of monoclonal disease #CKD4 #HTN -Cr 2.55, at baseline (2-2.5) although uptrending -Bps acceptable Recommendations: -Trend renal function/Na daily -Continue 2L fluid restriction -Holding lasix with uptrending Cr Thank you for this consult, we will continue to follow. Please call or page if any questions [facility] Pager: [phone] Office: [phone]. Office Subjective: Interval history/events: Patient resting comfortably this afternoon Thoughts are tangential, she discusses [facility] lab and describes components of cell structure in relation to an egg. Past Medical History: Medical History[1] Medications: MAR reviewed. Scheduled Meds[2] Continuous Meds[3] Review of Systems: All other ROS negative except those noted above. Physical Exam: Vitals: 03/13/25 0215 03/13/25 0553 03/13/25 0735 03/13/25 1102 BP: 103/74 134/58 128/70 BP Location: Left arm Right arm Right arm Patient Position: Lying Lying Lying Pulse: (!) 48 (!) 46 (!) 46 Resp: 18 18 18 Temp: 36.4 C (97.5 F) 36.4 C (97.5 F) 36.1 C (96.9 F) TempSrc: Temporal Temporal Temporal SpO2: 98% 96% 96% Weight: 104 kg (228 lb 9.6 oz) Height: Admission weight: 109 kg (240 lb) Wt Readings from Last 3 Encounters: 03/13/25 104 kg (228 lb 9.6 oz) 01/08/25 117 kg (258 lb 3.2 oz) 12/29/24 113 kg (250 lb) I/O last 3 completed shifts: In: 2525 (24.4 mL/kg) [P.O.:2525] Out: 3900 (37.6 mL/kg) [Urine:3900 (1 mL/kg/hr)] Weight: 103.7 kg Net IO Since Admission: -6,760 mL [03/13/25 1401] General: A&Ox3, NAD HEENT: Sclera clear, EOMI, MMM, Nose/ears/hearing grossly normal Neck: Supple, trachea midline, no mass, no TM Heart: RRR, no rub/heave Lungs: Clear bilaterally, unlabored Abd: Soft, (+) BS, non-tender Ext: No edema Neuro: No tremor/myoclonus Skin: warm and dry, no rash LABS: No results for input(s): "WBC", "HGB", "HCT", "MCV", "PLT" in the last 72 hours. No lab exists for component: DIFF Lab Results Component Value Date IRON 37 (L) 01/02/2025 TIBC 146 (L) 01/02/2025 FERRITIN 254 (H) 10/04/2024 Lab Results Component Value Date [id number] 03/08/2025 FOLATE 3.7 (L) 03/08/2025 Recent Labs 03/11/25 0324 03/12/25 0825 03/13/25 0027 NA 132* 133* 132* K 4.4 4.8 4.5 CL 99 103 100 CO2 25 20* 25 BUN 33* 35* 43* CREATININE 2.15* 2.23* 2.55* GLUCOSE 75 104* 95 CALCIUM 8.5 9.0 8.5 PHOS 4.6 4.8* 5.2* ANIONGAP 8 10 7 Lab Results Component Value Date PTH 161.6 (H) 04/17/2024 CALCIUM 8.5 03/13/2025 PHOS 5.2 (H) 03/13/2025 No components found for: "CNEJ55T" Diagnostic Studies: Personally reviewed available data [labs, MARS, radiologic studies, and electronic records]. Parts of assessment/plan may have been copied from prior entry and amended as needed. It reflects full evaluation and pathophysiology of processes involved. [1] Past Medical History: Diagnosis Date Acid reflux Anxiety Arthritis Asperger syndrome Bipolar disorder (HCC) Chronic kidney disease stage 4 kidney failure Chronic pain Depression Edema of both legs GERD (gastroesophageal reflux disease) Hemorrhoids Hyperlipidemia Hypertension Hypothyroidism Iron (Fe) deficiency anemia Nephrogenic diabetes insipidus (HCC) Pain management Retention of urine, unspecified Sciatica SOB (shortness of breath) GRANT Type II or unspecified type diabetes mellitus without mention of complication, not stated as uncontrolled (HCC) Urinary incontinence nightly [2] bisacodyl, 10 mg, Rectal, Daily buprenorphine, 1 patch, TransDERmal, Weekly divalproex, 250 mg, Oral, TID WC DULoxetine, 60 mg, Oral, Daily lamoTRIgine, 150 mg, Oral, Nightly levothyroxine, 125 mcg, Oral, Daily metoprolol tartrate, 75 mg, Oral, BID risperiDONE, 3 mg, Oral, Nightly rosuvastatin, 10 mg, Oral, Daily sodium chloride 0.9%, 5-40 mL, IntraVENous, q12h traZODone, 100 mg, Oral, Nightly [3] Hospitalist Progress Note 03/13/2025 [id number]: Please page tx ([phone]) for patient care issues. [phone]: Please page [facility] Hospitalist for any issues. Subjective: Admit Date: 03/06/2025 PCP: Edith Pierce MD Room#: [id number]/[id number] A Interval History: No overnight issues. She is laying in bed resting comfortably. Denies chest pain or sob. No abdominal pain, nausea, vomiting. No fevers or chills. Adult diet Regular; Low Sodium (2 gm); 2000 ml @[id number]@ 24HR INTAKE/OUTPUT: Intake/Output Summary (Last 24 hours) at 03/13/2025 1252 Last data filed at 03/13/2025 1149 Gross per 24 hour Intake 2615 ml Output 3350 ml Net -735 ml Past Medical History: Medical History[1] LABS: CBC: No results for input(s): "WBC", "RBC", "HGB", "HCT", "MCV", "RDW", "PLT" in the last 72 hours. BMP: Recent Labs 03/11/25 0324 03/12/25 0825 03/13/25 0027 NA 132* 133* 132* K 4.4 4.8 4.5 CL 99 103 100 CO2 25 20* 25 BUN 33* 35* 43* CREATININE 2.15* 2.23* 2.55* GLUCOSE 75 104* 95 CALCIUM 8.5 9.0 8.5 ANIONGAP 8 10 7 LIVER PROFILE:No results for input(s): "AST", "ALT", "BILITOT", "ALKPHOS", "PROT" in the last 72 hours. No lab exists for component: LABALBU PT/INR: No results for input(s): "PROTIME", "INR" in the last 72 hours. CARDIAC ENZYMES: No results for input(s): "TROPONINI" in the last 72 hours. Procalcitonin: No results found for: "PROCAL" COVID-19 PCR: No results for input(s): "COVID19" in the last 72 hours. Objective: Vitals: BP 128/70 (BP Location: Right arm, Patient Position: Lying) Pulse (!) 46 Temp 36.1 C (96.9 F) (Temporal) Resp 18 Ht 5' 3" (1.6 m) Wt 228 lb 9.6 oz (104 kg) SpO2 96% BMI 40.49 kg/m Pulse Ox: SpO2 Av.2 % Min: 96 % Max: 100 % Supplemental O2: General appearance: No apparent distress, appears stated age, HEENT: Eyes: No scleral icterus Oral: Tongue is semi-moist Cardiovascular: S1/S2 heard, RRR Respiratory: Clear to auscultation bilaterally Abdomen: Soft, non-tender, non-distended bowel sounds positive Musculoskeletal: No obvious deformities seen Skin: No visible rashes or lesions. Medications: Continuous Meds[2] Scheduled Meds[3] Assessment Acute, acute on chronic, unstable/uncontrolled chronic problems/diagnoses: # Recurrent falls # Unable to care for self # Hyponatremia with sodium of 121 on admission - improved now with fluid restriction and lasix. Nephrology managing. Sodium has been above 130 now. # Bradycardia - reduce lopressor to 75mg BID (was 100mg bid). Continue to monitor. Stable chronic problems affecting care, new non-acute diagnoses: # GERD # History of anxiety and depression # Chronic arthritis # History of Asperger syndrome # History of bipolar disorder # CKD stage IV - Nephrology following. # Chronic pain syndrome-sees pain management # History of hemorrhoids # Chronic hypertension # Hyperlipidemia # History of sciatica # Diabetes mellitus type 2 # History of urine incontinence Plan -decrease lopressor to 75mg bid. -PT saw and recommending SNF. TCC sent referral to [facility]. Auth pending -renal panel daily per nephrology Extended Emergency Contact Information Primary Emergency Contact: Pita Jara Mobile Relation: Parent Preferred language: Northern Irish Mechanism Inspector needed? No Secondary Emergency Contact: Mamadou Jara Relation: Father Estephania Gonzalez MD Division of Hospitalist Medicine [facility]patient [facility] [place]ER: Epic chat [1] Past Medical History: Diagnosis Date Acid reflux Anxiety Arthritis Asperger syndrome Bipolar disorder (HCC) Chronic kidney disease stage 4 kidney failure Chronic pain Depression Edema of both legs GERD (gastroesophageal reflux disease) Hemorrhoids Hyperlipidemia Hypertension Hypothyroidism Iron (Fe) deficiency anemia Nephrogenic diabetes insipidus (HCC) Pain management Retention of urine, unspecified Sciatica SOB (shortness of breath) GRANT Type II or unspecified type diabetes mellitus without mention of complication, not stated as uncontrolled (HCC) Urinary incontinence nightly [2] [3] bisacodyl, 10 mg, Rectal, Daily buprenorphine, 1 patch, TransDERmal, Weekly divalproex, 250 mg, Oral, TID WC DULoxetine, 60 mg, Oral, Daily lamoTRIgine, 150 mg, Oral, Nightly levothyroxine, 125 mcg, Oral, Daily metoprolol tartrate, 100 mg, Oral, BID risperiDONE, 3 mg, Oral, Nightly rosuvastatin, 10 mg, Oral, Daily sodium chloride 0.9%, 5-40 mL, IntraVENous, q12h traZODone, 100 mg, Oral, Nightly Images from the original note were not included. PHYSICAL THERAPY [facility] Treatment Note Name/MRN: Jessy Mckeon ([id number]) Date of : 1965 Age: 60 y.o. Room/Bed: W5-526/W5526 A Discharge Recommendation: Snf Facility Other: tbd Prior Level of Function Prior Level of ADL Function: Required Assist Prior Level of Mobility: Required Assist; Device: Front wheeled walker Prior Level of Transfers: Required Assist Assessment Pt progressing with bed mobility, resistant to therapy due to generalized pain. Pt verbose throughout session at times difficult to redirect. Pt impulsive at times but agreeable to sit EOB with mod A. Pt returning to supine report she did not want to continue therapy due to pain. Pt would benefit from SNF placement to imporve bed mobility, functional transfers, strength, and endurance. Subjective Name and of pt verified. Pt agreeable to PT Eval and treatment Pain: pt does not rate pain, pt reports generalized pain due to Hx of fibromyalgia Medical Precautions: No active isolations Proper PPE donned/doffed in accordance with facility standards. Fall Risk: Shelton Fall Risk Score: 75 (High Risk) Precautions/Restrictions: Lines/Drains/Airways: purewick, bed alarm Overall Cognitive Status: WFL Overall Orientation Status: Oriented to Place, Oriented to Situation, and Oriented to Person Family/Caregiver Present: none Objective Bed Mobility Pt impulsively exits BLE to EOB and attempts multiple times to sit up using bed function, mod A to assist in ascending trunk, pt sits EOB for brief period then returns to supine with mod A to enter BLE. Verbal cues for safety to slowly ascend and descend to decrease risk of dizziness. Plan Continue acute PT per plan of care. Safety/Education Safety Safety Devices in place: All fall risk precautions in place, call light within reach, left in bed, and bed alarm in place Restraints: N/A Education Pt educated on importance of frequent mobility to improve functional endurance and decrease risk of muscular atrophy Outcome Measures AM-PAC AM-PAC Inpatient Mobility Raw Score (No Stairs) : 9 JH-HLM -HLM Score: Sat at edge of bed Goals Patient Stated Goal: To be able to walk. Encounter Problems Encounter Problems (Active) Balance Patient will maintain static standing balance for 3 minutes with min assist in order to demonstrate decreased risk of falling. (Not Addressed) Start: 03/07/25 Expected End: 04/04/25 Mobility Patient will ambulate 30 feet with min assist and rolling walker in order to improve safety and independence with mobility. (Not Addressed) Start: 03/07/25 Expected End: 04/04/25 Transfers Patient will perform bed mobility with min assist in order to improve independence and prepare for out of bed mobility. (Progressing) Start: 03/07/25 Expected End: 04/04/25 Patient will complete functional transfer with rolling walker with min assist in order to prepare for ambulation. (Not Addressed) Start: 03/07/25 Expected End: 04/04/25 Therapy Time Individual Co-treatment Time In 1120 Time Out 1130 Minutes 10 Demar Solomon PT Images from the original note were not included. OCCUPATIONAL THERAPY [facility] Treatment Note Name/MRN: Jessy Mckeon ([id number]) Date of : 1965 Age: 60 y.o. Room/Bed: [facility]526/[facility] A Discharge Recommendation: Snf Facility Prior Level of Function Prior Level of ADL Function: Required Assist Prior Level of Mobility: Required Assist; Device: None Prior Level of Transfers: Required Assist Assessment Pt supine in bed. Bed mobility and grooming task performed during OT session. OT recommend SNF [place] Subjective Bed mobility scooting pt up was max assist. Pain: Huddleston-Tam Pain Ratin = Hurts a little bit Pain Location: back Medical Precautions: No active isolations Proper PPE donned/doffed in accordance with facility standards. Fall Risk: Shelton Fall Risk Score: 60 (High Risk) Precautions/Restrictions: Lines/Drains/Airways: purewick, bed alarm Family/Caregiver Present: none Objective ADLs Grooming: SBA SBA for simple oral care, wash/dry hands and face and comb hair. Bed Mobility Scooting: Max Assist, x2 Person Assist Cognition - Arousal/alertness: delayed responses to stimuli - Following commands: follows one step commands with increased time and follows one step commands with repetition - Attention span: attends with cues to redirect - Memory: decreased short term memory - Safety judgement: WFL for bed level - Insights: decreased awareness of deficits - Initiation: requires cues for all - Sequencing: requires cues for all Plan Continue acute OT per plan of care. Safety/Education Safety Safety Devices in place: All fall risk precautions in place, call light within reach, left in bed, and [place] student working with pt at the end of OT Restraints: No Education Education Given To: patient Education Provided: OT Role, Plan of Care, ADL Adaptive Strategies, Orientation, and Benefits of Increasing Activity Education Method: Verbal and Demonstration Barriers to Learning: Cognition Education Outcome: Continued Education Needed AM-PAC AM-PAC Inpatient Daily Activity Raw Score: 12 ADL Inpatient CMS G-Code Modifier: CL Goals Patient Stated Goal: none stated Encounter Problems Encounter Problems (Active) Balance Patient will maintain static standing balance for 2 minutes with min assist in order to demonstrate decreased risk of falling. (Not Addressed) Start: 03/10/25 Expected End: 04/07/25 Dressings Lower Extremities Patient will dress lower body with min assist (Not Addressed) Start: 03/10/25 Expected End: 04/07/25 Grooming Patient will complete daily grooming tasks with set up (Progressing) Start: 03/10/25 Expected End: 04/07/25 Mobility Patient will demonstrate functional ambulation with min assist and LRD (Not Addressed) Start: 03/10/25 Expected End: 04/07/25 Toileting Patient will complete toileting tasks at bedside commode with min assist. (Not Addressed) Start: 03/10/25 Expected End: 04/07/25 Transfers Patient will complete functional transfer with least restrictive device with min assist in order to prepare for ambulation. (Not Addressed) Start: 03/10/25 Expected End: 04/07/25 Patient will perform bed mobility with min assist in order to improve independence and prepare for out of bed mobility. (Not Addressed) Start: 03/10/25 Expected End: 04/07/25 Therapy Time Individual Co-treatment Time In 0735 Time Out 0746 Minutes 11 Timed Code Treatment Minutes: 11 Minutes (selfcare-1) JOCY Weaver Cosigned by Gosia Lara OT at 03/13/2025 2:56 PM EDT Hospitalist Progress Note 03/12/2025 [phone]: Please page me ([phone]) for patient care issues. [phone]: Please page [facility] Hospitalist for any issues. Subjective: Admit Date: 03/06/2025 PCP: Edith Pierce MD Room#: [facility]526/[facility] A Interval History: No overnight issues. She is laying in bed resting comfortably. Denies chest pain or sob. No abdominal pain, nausea, vomiting. No fevers or chills. Adult diet Regular; Low Sodium (2 gm); 2000 ml @[id number]@ 24HR INTAKE/OUTPUT: Intake/Output Summary (Last 24 hours) at 03/12/2025 1249 Last data filed at 03/12/2025 0800 Gross per 24 hour Intake 950 ml Output 2400 ml Net -1450 ml Past Medical History: Medical History[1] LABS: CBC: No results for input(s): "WBC", "RBC", "HGB", "HCT", "MCV", "RDW", "PLT" in the last 72 hours. BMP: Recent Labs 03/10/25 0216 03/11/25 0324 03/12/25 0825 NA 131* 132* 133* K 5.1 4.4 4.8 CL 99 99 103 CO2 22 25 20* BUN 29* 33* 35* CREATININE 2.18* 2.15* 2.23* GLUCOSE 74 75 104* CALCIUM 8.7 8.5 9.0 ANIONGAP 10 8 10 LIVER PROFILE:No results for input(s): "AST", "ALT", "BILITOT", "ALKPHOS", "PROT" in the last 72 hours. No lab exists for component: LABALBU PT/INR: No results for input(s): "PROTIME", "INR" in the last 72 hours. CARDIAC ENZYMES: No results for input(s): "TROPONINI" in the last 72 hours. Procalcitonin: No results found for: "PROCAL" COVID-19 PCR: No results for input(s): "COVID19" in the last 72 hours. Objective: Vitals: BP 135/63 (BP Location: Left arm, Patient Position: Lying) Pulse (!) 48 Temp 36.7 C (98.1 F) (Temporal) Resp 20 Ht 5' 3" (1.6 m) Wt 230 lb 8 oz (105 kg) SpO2 99% BMI 40.83 kg/m Pulse Ox: SpO2 Av.3 % Min: 96 % Max: 99 % Supplemental O2: General appearance: No apparent distress, appears stated age, HEENT: Eyes: No scleral icterus Oral: Tongue is semi-moist Cardiovascular: S1/S2 heard, RRR Respiratory: Clear to auscultation bilaterally Abdomen: Soft, non-tender, non-distended bowel sounds positive Musculoskeletal: No obvious deformities seen Skin: No visible rashes or lesions. Medications: Continuous Meds[2] Scheduled Meds[3] Assessment Acute, acute on chronic, unstable/uncontrolled chronic problems/diagnoses: # Recurrent falls # Unable to care for self # Hyponatremia with sodium of 121 on admission - improved now with fluid restriction and lasix. Nephrology managing. # Bradycardia - had HR of 48 once and held am dose of Lopressor on 03/12. Continue to monitor. Stable chronic problems affecting care, new non-acute diagnoses: # GERD # History of anxiety and depression # Chronic arthritis # History of Asperger syndrome # History of bipolar disorder # CKD stage IV - Nephrology following. # Chronic pain syndrome-sees pain management # History of hemorrhoids # Chronic hypertension # Hyperlipidemia # History of sciatica # Diabetes mellitus type 2 # History of urine incontinence Plan -Hold am dose of lopressor due to HR of 48 -PT saw and recommending SNF. TCC sent referral to [facility]. Auth pending -renal panel daily per nephrology Extended Emergency Contact Information Primary Emergency Contact: Pita Jara Mobile Relation: Parent Preferred language: Northern Irish Mechanism Inspector needed? No Secondary Emergency Contact: EstefaniMamadou Alamo Relation: Father Estephania Gonzalez MD Division of Hospitalist Medicine Inpatient Medical Services[place] [place]: Epic chat [1] Past Medical History: Diagnosis Date Acid reflux Anxiety Arthritis Asperger syndrome Bipolar disorder (HCC) Chronic kidney disease stage 4 kidney failure Chronic pain Depression Edema of both legs GERD (gastroesophageal reflux disease) Hemorrhoids Hyperlipidemia Hypertension Hypothyroidism Iron (Fe) deficiency anemia Nephrogenic diabetes insipidus (HCC) Pain management Retention of urine, unspecified Sciatica SOB (shortness of breath) GRANT Type II or unspecified type diabetes mellitus without mention of complication, not stated as uncontrolled (HCC) Urinary incontinence nightly [2] [3] bisacodyl, 10 mg, Rectal, Daily buprenorphine, 1 patch, TransDERmal, Weekly divalproex, 250 mg, Oral, TID WC DULoxetine, 60 mg, Oral, Daily furosemide, 20 mg, Oral, Daily lamoTRIgine, 150 mg, Oral, Nightly levothyroxine, 125 mcg, Oral, Daily metoprolol tartrate, 100 mg, Oral, BID risperiDONE, 3 mg, Oral, Nightly rosuvastatin, 10 mg, Oral, Daily sodium chloride 0.9%, 5-40 mL, IntraVENous, q12h traZODone, 100 mg, Oral, Nightly Images from the original note were not included. OCCUPATIONAL THERAPY [facility] Name/MRN: Jessy Mckeon ([id number]) Date: 03/12/2025 Pt is currently refusing OT at this time. OT will re-attempt to see pt as schedule allows. JOCY Weaver Cosigned by Gosia Lara OT at 03/12/2025 2:33 PM EDT Images from the original note were not included. Nephrology Progress Note Patient: Jessy Mckeon Room number: [id number] A Date of Admit: 03/06/2025 LOS: 5 days Admitting physician: Clara Wyatt DO Referring physician: Estephania Gonzalez MD Outpatient Leach Cell Operator: Dr. Andre Assessment/Plan: 60F with history of Asperger syndrome, bipolar, CKD4, HTN, T2DM who presented with weakness/failure to thrive. Nephrology consulted for hyponatremia. #Normo-osmolar hyponatremia: Improving. Na 121 on arrival, now 133. -Likely combination of hypervolemic hyponatremia and elevated solutes from CKD. Documented history of diabetes insipidus however more recent issue has been hyponatremia. Multiple meds that could cause SIADH however unlikely with dilute urine studies. -Sosms low at 278 on arrival, now 291 -Uosms 104, Lizz 29 (in setting of lasix administration) -lipid panel nonelevated -Serum IF and FLCs in process #CKD4 #HTN -Cr 2.23, at baseline (2-2.5) -Bps acceptable Recommendations: -Trend renal function/Na daily -Continue 2L fluid restriction -Follow up monoclonal screen -Continue lasix 20 mg PO daily Thank you for this consult, we will continue to follow. Please call or page if any questions [facility] Pager: [phone] Office: [phone]. Office Subjective: Interval history/events: Patient resting comfortably this AM, no distress. Past Medical History: Medical History[1] Medications: MAR reviewed. Scheduled Meds[2] Continuous Meds[3] Review of Systems: All other ROS negative except those noted above. Physical Exam: Vitals: 03/11/25 1940 03/11/25 2240 03/12/25 0449 03/12/25 0758 BP: 127/72 116/67 137/66 135/63 BP Location: Left arm Left arm Left arm Left arm Patient Position: Lying Lying Lying Lying Pulse: 90 52 53 (!) 48 Resp: 18 18 18 20 Temp: 36 C (96.8 F) (!) 35.9 C (96.7 F) 36.1 C (97 F) 36.7 C (98.1 F) TempSrc: Temporal Temporal Temporal Temporal SpO2: 96% 96% 98% 99% Weight: 105 kg (230 lb 8 oz) Height: Admission weight: 109 kg (240 lb) Wt Readings from Last 3 Encounters: 03/12/25 105 kg (230 lb 8 oz) 01/08/25 117 kg (258 lb 3.2 oz) 12/29/24 113 kg (250 lb) I/O last 3 completed shifts: In: 2370 (22.7 mL/kg) [P.O.:2370] Out: 3900 (37.3 mL/kg) [Urine:3900 (1 mL/kg/hr)] Weight: 104.6 kg Net IO Since Admission: -6,025 mL [03/12/25 1103] General: NAD HEENT: Sclera clear, EOMI, MMM, Nose/ears/hearing grossly normal Neck: Supple, trachea midline, no mass, no TM Heart: RRR, no rub/heave Lungs: Clear bilaterally, unlabored Abd: Soft, (+) BS, non-tender Ext: No edema Neuro: No tremor/myoclonus Skin: warm and dry, no rash LABS: No results for input(s): "WBC", "HGB", "HCT", "MCV", "PLT" in the last 72 hours. No lab exists for component: DIFF Lab Results Component Value Date IRON 37 (L) 01/02/2025 TIBC 146 (L) 01/02/2025 FERRITIN 254 (H) 10/04/2024 Lab Results Component Value Date [id number] 03/08/2025 FOLATE 3.7 (L) 03/08/2025 Recent Labs 03/10/25 0216 03/11/25 0324 03/12/25 0825 NA 131* 132* 133* K 5.1 4.4 4.8 CL 99 99 103 CO2 22 25 20* BUN 29* 33* 35* CREATININE 2.18* 2.15* 2.23* GLUCOSE 74 75 104* CALCIUM 8.7 8.5 9.0 PHOS 4.2 4.6 4.8* ANIONGAP 10 8 10 Lab Results Component Value Date PTH 161.6 (H) 04/17/2024 CALCIUM 9.0 03/12/2025 PHOS 4.8 (H) 03/12/2025 No components found for: "NMUP43C" Diagnostic Studies: Personally reviewed available data [labs, MARS, radiologic studies, and electronic records]. Parts of assessment/plan may have been copied from prior entry and amended as needed. It reflects full evaluation and pathophysiology of processes involved. [1] Past Medical History: Diagnosis Date Acid reflux Anxiety Arthritis Asperger syndrome Bipolar disorder (HCC) Chronic kidney disease stage 4 kidney failure Chronic pain Depression Edema of both legs GERD (gastroesophageal reflux disease) Hemorrhoids Hyperlipidemia Hypertension Hypothyroidism Iron (Fe) deficiency anemia Nephrogenic diabetes insipidus (HCC) Pain management Retention of urine, unspecified Sciatica SOB (shortness of breath) GRANT Type II or unspecified type diabetes mellitus without mention of complication, not stated as uncontrolled (HCC) Urinary incontinence nightly [2] bisacodyl, 10 mg, Rectal, Daily buprenorphine, 1 patch, TransDERmal, Weekly divalproex, 250 mg, Oral, TID WC DULoxetine, 60 mg, Oral, Daily furosemide, 20 mg, Oral, Daily lamoTRIgine, 150 mg, Oral, Nightly levothyroxine, 125 mcg, Oral, Daily metoprolol tartrate, 100 mg, Oral, BID risperiDONE, 3 mg, Oral, Nightly rosuvastatin, 10 mg, Oral, Daily sodium chloride 0.9%, 5-40 mL, IntraVENous, q12h traZODone, 100 mg, Oral, Nightly [3] Hospitalist Progress Note 03/11/2025 1:01 PM Subjective: Admit Date: 03/06/2025 PCP: Edith Pierce MD Jessy is a 60 y.o. female with past medical history below who presents with complaints of generalized weakness and an inability to care for self. Patient was just discharged about 1.5 months ago from here with similar presentation, was discharged to custodial facility. Patient states that she is not receiving a required amount of care for her, EMS was apparently called for a lift assist after she slid from a chair to the floor, and was requesting placement in a new facility. In the ED she was hemodynamically stable her only lab abnormality compared to baseline was her sodium was low at 121. Interval History: pt awake Upset about fluid restrict Somewhat tangential about SNF/ facility No overnight issues. Denies chest pain, 03/09 Pt resting comfortably No new issues 03/10 Pt wake Wants less fluid restrict No CP 03/11 Pt awake No CP Rustam PO Adult diet Regular; Low Sodium (2 gm); 2000 ml @IODETAILS@ @[email or web address]@ Medications: Continuous Meds[1] Scheduled Meds[2] No results for input(s): "WBC", "HGB", "PLT" in the last 72 hours. Recent Labs 03/09/25 0417 03/10/25 0216 03/11/25 0324 NA 130* 131* 132* K 4.9 5.1 4.4 CL 100 99 99 CO2 22 22 25 BUN 22 29* 33* CREATININE 2.09* 2.18* 2.15* GLUCOSE 80 74 75 No results for input(s): "AST", "ALT", "BILITOT", "ALKPHOS" in the last 72 hours. No lab exists for component: "ALB" Lab Results Component Value Date TRIG 93 03/09/2025 HDL 34 (L) 03/09/2025 LDLCALC 63 03/09/2025 CHOL 116 03/09/2025 No results for input(s): "INR" in the last 72 hours. No results for input(s): "CKTOTAL", "CKMB", "TROPONINI" in the last 72 hours. Objective: Vitals: BP 123/56 (BP Location: Right arm, Patient Position: Lying) Pulse 61 Temp 36.2 C (97.2 F) (Temporal) Resp 16 Ht 5' 3" (1.6 m) Wt 234 lb (106 kg) SpO2 94% BMI 41.45 kg/m Pulse Ox: SpO2 Av % Min: 94 % Max: 97 % Supplemental O2: General appearance: awake Lungs: clear to auscultation bilaterally Heart: RRR Abdomen: soft, non-tender; bowel sounds normal; no masses, no organomegaly Extremities: extremities normal, atraumatic, no cyanosis or edema Neurologic: No obvious focal neurologic deficits. Assessment Principal Problem: Hyponatremia Acute, acute on chronic, unstable/uncontrolled chronic problems/diagnoses: Recurrent falls Unable to care for self Hyponatremia Stable chronic problems affecting care, new non-acute diagnoses: [Medical History] [Medical History] Past Medical History Diagnosis Date Acid reflux Anxiety Arthritis Asperger syndrome Bipolar disorder (HCC) Chronic kidney disease stage 4 kidney failure Chronic pain Depression Edema of both legs GERD (gastroesophageal reflux disease) Hemorrhoids Hyperlipidemia Hypertension Hypothyroidism Iron (Fe) deficiency anemia Nephrogenic diabetes insipidus (HCC) Pain management Retention of urine, unspecified Sciatica SOB (shortness of breath) GRANT Type II or unspecified type diabetes mellitus without mention of complication, not stated as uncontrolled (HCC) Urinary incontinence nightly Following Na-- per prior noted 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-- renal following-- improved, defer fluid restriction to them Cont supportive care PT/OT SW for placement Psych following as well, adjust medication per them Anticipated Discharge - Date - 03/12 - Location - Skilled Facility - Pending the following - course Total time spent (which include face to face and non face to face encounters) : 43 minutes See orders, continue POC Advance Directive: Full Code [facility]de Tucker [facility] [[facility]] [2] bisacodyl, 10 mg, Rectal, Daily divalproex, 250 mg, Oral, TID WC DULoxetine, 60 mg, Oral, Daily furosemide, 20 mg, Oral, Daily lamoTRIgine, 150 mg, Oral, Nightly levothyroxine, 125 mcg, Oral, Daily metoprolol tartrate, 100 mg, Oral, BID risperiDONE, 3 mg, Oral, Nightly rosuvastatin, 10 mg, Oral, Daily sodium chloride 0.9%, 5-40 mL, IntraVENous, q12h traZODone, 100 mg, Oral, Nightly Images from the original note were not included. Nephrology Progress Note Patient: Jessy Mckeon Room number: [id number] A Date of Admit: 03/06/2025 LOS: 4 days Admitting physician: Clara Wyatt DO Referring physician: Tunde Tucker MD Outpatient Leach Cell Operator: Dr. Andre Assessment/Plan: 60F with history of Asperger syndrome, bipolar, CKD4, HTN, T2DM who presented with weakness/failure to thrive. Nephrology consulted for hyponatremia. #Normo-osmolar hyponatremia: Improving. Na 121 on arrival, now 132. -Likely combination of hypervolemic hyponatremia and elevated solutes from CKD. Documented history of diabetes insipidus however more recent issue has been hyponatremia. Multiple meds that could cause SIADH however unlikely with dilute urine studies. -Sosms low at 278 on arrival, now 291 -Uosms 104, Lizz 29 (in setting of lasix administration) -lipid panel nonelevated -Serum IF and FLCs in process #CKD4 #HTN -Cr 2.15, at baseline (2-2.5) -Bps acceptable Recommendations: -Trend renal function/Na daily -Continue 2L fluid restriction -Follow up monoclonal screen -Continue lasix 20 mg PO daily Thank you for this consult, we will continue to follow. Please call or page if any questions [facility] Pager: [phone] Office: [phone]. Office Subjective: Interval history/events: Patient pleasant this AM. States she is hoping to go to nursing facility. Denies any SOB, chest pain, N/V or other acute complaints. We discussed importance of maintaining modest fluid restriction. Past Medical History: Medical History[1] Medications: MAR reviewed. Scheduled Meds[2] Continuous Meds[3] Review of Systems: All other ROS negative except those noted above. Physical Exam: Vitals: 03/10/25 0808 03/10/25201103/11/25 0353 03/11/25 0820 BP: 145/78 118/81 142/76 123/56 BP Location: Left arm Left arm Right arm Right arm Patient Position: Lying Lying Lying Lying Pulse: 57 64 56 61 Resp: 16 18 16 16 Temp: 36.3 C (97.4 F) 36.6 C (97.8 F) 36.5 C (97.7 F) 36.2 C (97.2 F) TempSrc: Temporal Temporal Temporal Temporal SpO2: 100% 97% 97% 94% Weight: 106 kg (234 lb) Height: Admission weight: 109 kg (240 lb) Wt Readings from Last 3 Encounters: 03/11/25 106 kg (234 lb) 01/08/25 117 kg (258 lb 3.2 oz) 12/29/24 113 kg (250 lb) I/O last 3 completed shifts: In: 1959 (18.5 mL/kg) [P.O.:1960] Out: 4275 (40.3 mL/kg) [Urine:4275 (1.1 mL/kg/hr)] Weight: 106.1 kg Net IO Since Admission: -4,785 mL [03/11/25 1103] General: A&O x 3, NAD HEENT: Sclera clear, EOMI, MMM, Nose/ears/hearing grossly normal Neck: Supple, trachea midline, no mass, no TM Heart: RRR, no rub/heave Lungs: Clear bilaterally, unlabored Abd: Soft, (+) BS, non-tender Ext: No edema Neuro: No tremor/myoclonus Skin: warm and dry, no rash LABS: No results for input(s): "WBC", "HGB", "HCT", "MCV", "PLT" in the last 72 hours. No lab exists for component: DIFF Lab Results Component Value Date IRON 37 (L) 01/02/2025 TIBC 146 (L) 01/02/2025 FERRITIN 254 (H) 10/04/2024 Lab Results Component Value Date [id number] 03/08/2025 FOLATE 3.7 (L) 03/08/2025 Recent Labs 03/09/25 0417 03/10/25 0216 03/11/25 0324 NA 130* 131* 132* K 4.9 5.1 4.4 CL 100 99 99 CO2 22 22 25 BUN 22 29* 33* CREATININE 2.09* 2.18* 2.15* GLUCOSE 80 74 75 CALCIUM 8.5 8.7 8.5 PHOS -- 4.2 4.6 ANIONGAP 8 10 8 Lab Results Component Value Date PTH 161.6 (H) 04/17/2024 CALCIUM 8.5 03/11/2025 PHOS 4.6 03/11/2025 No components found for: "CDUL63A" Diagnostic Studies: Personally reviewed available data [labs, MARS, radiologic studies, and electronic records]. Parts of assessment/plan may have been copied from prior entry and amended as needed. It reflects full evaluation and pathophysiology of processes involved. [1] Past Medical History: Diagnosis Date Acid reflux Anxiety Arthritis Asperger syndrome Bipolar disorder (HCC) Chronic kidney disease stage 4 kidney failure Chronic pain Depression Edema of both legs GERD (gastroesophageal reflux disease) Hemorrhoids Hyperlipidemia Hypertension Hypothyroidism Iron (Fe) deficiency anemia Nephrogenic diabetes insipidus (HCC) Pain management Retention of urine, unspecified Sciatica SOB (shortness of breath) GRANT Type II or unspecified type diabetes mellitus without mention of complication, not stated as uncontrolled (HCC) Urinary incontinence nightly [2] bisacodyl, 10 mg, Rectal, Daily divalproex, 250 mg, Oral, TID WC DULoxetine, 60 mg, Oral, Daily furosemide, 20 mg, Oral, Daily lamoTRIgine, 150 mg, Oral, Nightly levothyroxine, 125 mcg, Oral, Daily metoprolol tartrate, 100 mg, Oral, BID risperiDONE, 3 mg, Oral, Nightly rosuvastatin, 10 mg, Oral, Daily sodium chloride 0.9%, 5-40 mL, IntraVENous, q12h traZODone, 100 mg, Oral, Nightly [3] Images from the original note were not included. PHYSICAL THERAPY [facility] Treatment Note Name/MRN: Jessy Mckeon ([id number]) Date of : 1965 Age: 60 y.o. [facility] A Discharge Recommendation: Snf Facility Other: tbd Prior Level of Function Prior Level of ADL Function: Required Assist Prior Level of Mobility: Required Assist; Device: Front wheeled walker Prior Level of Transfers: Required Assist Assessment Pt presents with the listed deficits and decreased functional mobility. Tolerated session. Bed Mobility demo'd MaxA with use of bed features. MaxA required for sitting EOB. Pt limited by weakness, fatigue, cognition and decreased balance as well as pain. Increased time required to complete tasks. PT goals not met. Pt would benefit from continued skilled PT. Recommend SNF at discharge. Subjective Pt supine. Agreeable to therapy. RN cleared for PT. Pain: [place]-Tam Pain Ratin = Hurts whole lot Pain Location: BLE Medical Precautions: No active isolations Proper PPE donned/doffed in accordance with facility standards. Fall Risk: Shelton Fall Risk Score: 75 (High Risk) Precautions/Restrictions: Lines/Drains/Airways: purewick, bed alarm Overall Cognitive Status: Exceptions - Initiation: requires cues for some - Sequencing: requires cues for some Overall Orientation Status: Oriented to Person Family/Caregiver Present: none Objective Bed Mobility Supine to sit: Max Assist Sit to supine: Max Assist Rolling to right: Max Assist Rolling to left: Max Assist Scooting: Max Assist Increased time and effort required to complete. HOB elevated with use of bed rails, draw sheets and chucks pads. Pt with poor and uncoordinated movements. Cues for sequencing and initiation required. Required physical assist\\ with all aspects fo bed mobility. Denies dizziness. Balance During Session: Posture: poor Sitting - Static: Max Assist Sitting - Dynamic: Max Assist MaxA sitting EOB. Cues for midline correction and core activation. When FLOORING GRADER decreased assist pt with retro balance. Unable to maintain forward upright sitting without MaxA. Plan Continue acute PT per plan of care. Safety/Education Safety Safety Devices in place: All fall risk precautions in place, call light within reach, left in bed, patient at risk for falls, nurse notified, and no alarms engaged upon entry Restraints: No Education Education Given To: patient Education Provided: PT Role, PT Goals, Precautions, Transfer Training, Energy Conservation, Fall Prevention Education, Discharge Recommendations, and Benefits of Increasing Activity Education Method: Verbal and Demonstration Barriers to Learning: Cognition Education Outcome: Verbalized Understanding and Continued Education Needed Outcome Measures AM-PAC AM-PAC Inpatient Mobility Raw Score (No Stairs) : 6 JH-HLM JH-HLM Score: Sat at edge of bed Goals Patient Stated Goal: To be able to walk. Encounter Problems Encounter Problems (Active) Balance Patient will maintain static standing balance for 3 minutes with min assist in order to demonstrate decreased risk of falling. (Not Addressed) Start: 03/07/25 Expected End: 04/04/25 Mobility Patient will ambulate 30 feet with min assist and rolling walker in order to improve safety and independence with mobility. (Not Addressed) Start: 03/07/25 Expected End: 04/04/25 Transfers Patient will perform bed mobility with min assist in order to improve independence and prepare for out of bed mobility. (Progressing) Start: 03/07/25 Expected End: 04/04/25 Patient will complete functional transfer with rolling walker with min assist in order to prepare for ambulation. (Not Addressed) Start: 03/07/25 Expected End: 04/04/25 Therapy Time Individual Co-treatment Time In 948 Time Out 1006 Minutes 17 Timed Code Treatment Minutes: 17 Minutes (FA) FLOORING GRADER wore PPE in compliance with hospital guidelines and regulation when treating this patient. Aspen Mercer PTA Cosigned by Aspen Evans PT at 03/11/2025 3:00 PM EDT Images from the original note were not included. OCCUPATIONAL THERAPY [facility] Initial Evaluation Name/MRN: Jessy Mckeon ([id number]) Evaluation Date: 03/10/2025 Date of : 1965 Admission Date: 03/06/2025 9:43 PM Age: 60 y.o. [facility]: [facility] A Discharge Recommendation: Snf Facility Assessment IMPRESSION: Pt presented from assisted living with inability to care for herself. Pt reports she cannot ambulate or stand d/t pain. Pt currently requires max assist for bed mobility, supervision for sitting balance but refuses to complete ADLs or stand d/t pain. Pt is self limiting. OT recommending SNF. Admitting Diagnosis: inability to care for self Performance Deficits /Impairments: Increased Pain, Decreased Functional Mobility, Decreased ADL status, Decreased Strength, Decreased Safety Awareness, Decreased Endurance, Decreased Balance, Decreased ROM, Decreased High Level IADLs, and Decreased Cognition Prognosis: Fair Decision Making: Medium Complexity Subjective Pt supine in bed, agreeable to OT eval. Pain: pt reports pain in back and B LE- inconsistent with pain, sometimes OT would touch her legs and pt would yell, other times pt would throw her legs around and had no pain Past Medical History: Medical History[1] Past Surgical History: Surgical History[2] Admission Diagnosis: Patient Active Problem List Diagnosis Date Noted Fall, initial encounter 12/30/2024 Lower extremity edema 10/02/2024 Fluid overload 08/03/2024 Hypervolemia, unspecified hypervolemia type 08/03/2024 Acute cystitis without hematuria 06/28/2024 Chronic renal disease, stage IV (HCC) 06/20/2023 Chronic kidney disease, stage 3b (HCC) 06/20/2023 Urinary tract infection without hematuria, site unspecified 03/17/2023 Urinary tract infection 03/16/2023 Depression 12/23/2021 Localized edema 01/11/2019 Schizoaffective disorder (CMS/HCC) (HCC) 06/05/2018 Suicidal ideations 05/22/2018 Chronic schizoaffective disorder (HCC) 05/22/2018 Acute gastric ulcer without hemorrhage or perforation 03/28/2018 Diverticulosis of large intestine without diverticulitis 03/28/2018 Chronic antral gastritis 03/28/2018 First degree hemorrhoids 03/28/2018 Dyspnea 03/03/2018 Urinary retention 03/02/2018 Chest pain 02/14/2018 Hyponatremia 02/12/2018 Hypothyroidism 10/12/2017 Morbid obesity with BMI of 45.0-49.9, adult ([facility]) 10/12/2017 Hypomagnesemia 10/12/2017 JOSE A (acute kidney injury) ([facility]) 10/12/2017 Chronic bilateral low back pain with bilateral sciatica 10/12/2017 Psychogenic polydipsia 10/12/2017 Hypertension 10/12/2017 Bipolar disorder ([facility]) 10/12/2017 Iron (Fe) deficiency anemia 10/09/2017 Primary hypothyroidism 06/13/2017 Pneumonia 06/13/[address] 06/13/2017 Urge incontinence of urine 01/12/2017 Nocturia 10/15/2016 Urge incontinence 10/15/2016 Rotator cuff strain 11/03/2015 Osteoarthritis of patellofemoral joint 11/03/2015 Anxiety 04/03/2015 GERD (gastroesophageal reflux disease) 04/03/2015 Urinary incontinence 04/03/2015 Medical Precautions: No active isolations Proper PPE donned/doffed in accordance with facility standards. Fall Risk: Shelton Fall Risk Score: 60 (High Risk) Precautions/Restrictions: Lines/Drains/Airways: purewick, bed alarm Family/Caregiver Present: none Overall Cognitive Status: appears manic, pressured speech, self limiting, does not apply full effort to formal assessment Overall Orientation Status: Oriented x4 Social/Functional History Patient [facility] from [facility]. Assistive Equipment: none Prior Level of Function Prior Level of ADL Function: Required Assist Prior Level of Mobility: Required Assist; Device: None Prior Level of Transfers: Required Assist Objective ADLs Declines ADLs d/t pain Upper Extremity Assessment AROM: WNL PROM: Not assessed this session Strength: WNL Bed Mobility Supine to sit: Mod Assist Sit to supine: Mod Assist HOB fully elevated, assist with B LE and trunk Transfers/Mobility Sitting balance: Supervision Sat EOB for ~ 3 minutes but reports pain in her back and B LE. Device(s) used: None AM-PAC AM-PAC Inpatient Daily Activity Raw Score: 12 ADL Inpatient CMS G-Code Modifier: CL Plan Pt would benefit from skilled acute OT services to address Strengthening, ROM, Gait Training, Balance Training, Self-Care/ADL Training, Functional Mobility Training, Endurance Training, Safety Education and Training, and Pain Management. Frequency: 3x/weekfor 4 weeks Barriers: Pain, Impaired balance, Lower extremity weakness, Limited safety awareness, Decreased endurance, Upper extremity weakness, and Cognitive deficit Safety/Education Safety Safety Devices in place: All fall risk precautions in place, call light within reach, left in bed, and bed alarm in place Restraints: No Education Education Given To: patient Education Provided: OT Role and Plan of Care Education Method: Verbal Barriers to Learning: Education Outcome: Goals Patient Stated Goal: none stated Encounter Problems Encounter Problems (Active) Balance Patient will maintain static standing balance for 2 minutes with min assist in order to demonstrate decreased risk of falling. Start: 03/10/25 Expected End: 04/07/25 Dressings Lower Extremities Patient will dress lower body with min assist Start: 03/10/25 Expected End: 04/07/25 Grooming Patient will complete daily grooming tasks with set up Start: 03/10/25 Expected End: 04/07/25 Mobility Patient will demonstrate functional ambulation with min assist and LRD Start: 03/10/25 Expected End: 04/07/25 Toileting Patient will complete toileting tasks at bedside commode with min assist. Start: 03/10/25 Expected End: 04/07/25 Transfers Patient will complete functional transfer with least restrictive device with min assist in order to prepare for ambulation. Start: 03/10/25 Expected End: 04/07/25 Patient will perform bed mobility with min assist in order to improve independence and prepare for out of bed mobility. Start: 03/10/25 Expected End: 04/07/25 Therapy Time Individual Co-Treatment Co-Evaluation Time In 0948 Time Out 1004 Minutes 16 Meera Michel OT Patient's Occupational Therapy Plan of Care supervision is transferred to a [facility] Occupational Therapist. Goals and/or treatment plan was established in collaboration with patient/family/other representatives. [1] Past Medical History: Diagnosis Date Acid reflux Anxiety Arthritis Asperger syndrome Bipolar disorder (HCC) Chronic kidney disease stage 4 kidney failure Chronic pain Depression Edema of both legs GERD (gastroesophageal reflux disease) Hemorrhoids Hyperlipidemia Hypertension Hypothyroidism Iron (Fe) deficiency anemia Nephrogenic diabetes insipidus (HCC) Pain management Retention of urine, unspecified Sciatica SOB (shortness of breath) GRANT Type II or unspecified type diabetes mellitus without mention of complication, not stated as uncontrolled (HCC) Urinary incontinence nightly [2] Past Surgical History: Procedure Laterality Date 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 female with past medical history below who presents with complaints of generalized weakness and an inability to care for self. Patient was just discharged about 1.5 months ago from here with similar presentation, was discharged to custodial facility. Patient states that she is not receiving a required amount of care for her, EMS was apparently called for a lift assist after she slid from a chair to the floor, and was requesting placement in a new facility. In the ED she was hemodynamically stable her only lab abnormality compared to baseline was her sodium was low at 121. Interval History: pt awake Upset about fluid restrict Somewhat tangential about SNF/ facility No overnight issues. Denies chest pain, 03/09 Pt resting comfortably No new issues 03/10 Pt wake Wants less fluid restrict No CP Adult diet Regular; Low Sodium (2 gm); 2000 ml @[email or web address]@ @[email or web address]@ Medications: Continuous Meds[1] Scheduled Meds[2] Recent Labs 03/08/25225 WBC 7.8 HGB 8.4* PLT 228 Recent Labs 03/08/25 0226 03/08/25 1017 03/09/25 0417 03/10/25 0216 NA 125* 129* 130* 131* K 4.4 -- 4.9 5.1 CL 98 -- 100 99 CO2 24 -- 22 22 BUN 17 -- 22 29* CREATININE 1.81* -- 2.09* 2.18* GLUCOSE 85 -- 80 74 No results for input(s): "AST", "ALT", "BILITOT", "ALKPHOS" in the last 72 hours. No lab exists for component: "ALB" Lab Results Component Value Date TRIG 93 03/09/2025 HDL 34 (L) 03/09/2025 LDLCALC 63 03/09/2025 CHOL 116 03/09/2025 No results for input(s): "INR" in the last 72 hours. No results for input(s): "CKTOTAL", "CKMB", "TROPONINI" in the last 72 hours. Objective: Vitals: BP 145/78 (BP Location: Left arm, Patient Position: Lying) Pulse 57 Temp 36.3 C (97.4 F) (Temporal) Resp 16 Ht 5' 3" (1.6 m) Wt 236 lb 8 oz (107 kg) SpO2 100% BMI 41.89 kg/m Pulse Ox: SpO2 Av % Min: 96 % Max: 100 % Supplemental O2: General appearance: awake Lungs: clear to auscultation bilaterally Heart: RRR Abdomen: soft, non-tender; bowel sounds normal; no masses, no organomegaly Extremities: extremities normal, atraumatic, no cyanosis or edema Neurologic: No obvious focal neurologic deficits. Assessment Principal Problem: Hyponatremia Acute, acute on chronic, unstable/uncontrolled chronic problems/diagnoses: Recurrent falls Unable to care for self Hyponatremia Stable chronic problems affecting care, new non-acute diagnoses: [Medical History] [Medical History] Past Medical History Diagnosis Date Acid reflux Anxiety Arthritis Asperger syndrome Bipolar disorder (HCC) Chronic kidney disease stage 4 kidney failure Chronic pain Depression Edema of both legs GERD (gastroesophageal reflux disease) Hemorrhoids Hyperlipidemia Hypertension Hypothyroidism Iron (Fe) deficiency anemia Nephrogenic diabetes insipidus (HCC) Pain management Retention of urine, unspecified Sciatica SOB (shortness of breath) GRANT Type II or unspecified type diabetes mellitus without mention of complication, not stated as uncontrolled (HCC) Urinary incontinence nightly Following Na-- per prior noted 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-- renal following-- improved, defer fluid restriction to them Cont supportive care PT/OT SW for placement Psych following as well, adjust medication per them Anticipated Discharge - Date - 03/11 - Location - Skilled Facility - Pending the following - course Total time spent (which include face to face and non face to face encounters) : 42 minutes See orders, continue POC Advance Directive: Full Code Tunde Tucker MD, [facility] Hospitalist [1] [2] divalproex, 250 mg, Oral, TID WC DULoxetine, 60 mg, Oral, Daily furosemide, 20 mg, Oral, Daily lamoTRIgine, 150 mg, Oral, Nightly levothyroxine, 125 mcg, Oral, Daily metoprolol tartrate, 100 mg, Oral, BID risperiDONE, 3 mg, Oral, Nightly rosuvastatin, 10 mg, Oral, Daily sodium chloride 0.9%, 5-40 mL, IntraVENous, q12h traZODone, 100 mg, Oral, Nightly Images from the original note were not included. NEPHROLOGY SOAP NOTE Visit date: 03/10/25, 10:37 AM Patient: Jessy Mckeon Room number: [id number] A Date of Admit: 03/06/2025 LOS: 3 days Referring physician: Tunde Tucker MD Outpatient Leach Cell Operator: Eva Andre MD ASSESSMENT/PLAN: Hyponatremia - chronic and near typical levels. Currently, this appears to be hypervolemic with complication of psychogenic polydipsia. She has a complicated history with documented nephrogenic DI (past) and pseudohyponatremia (recent). She consistently has been able to produce a dilute urine, so she does not have SIADH (despite multiple medications that may cause it). Continue 2 gram sodium restriction and furosemide 20 mg daily. Serum osmolality has normalized (pseudohyponatremia), ok to liberalize her fluid intake to 2000 mL - recheck serum osmolality tomorrow AM Check serum EULALIA and free light chains tomorrow Stage G4 CKD - serum creatinine currently better than typical baseline. Monitor for now Adjust medications based on: Estimated Creatinine Clearance: 32.9 mL/min (A) (by C-G formula based on SCr of 2.18 mg/dL (H)). SUBJECTIVE: Patient with chronic, stable medical conditions as documented in the initial consultation. Interval history reviewed: no acute events Patient sleeping comfortably this AM OBJECTIVE: CURRENT MEDICATIONS: Scheduled Meds[1] PHYSICAL EXAMINATION: Visit Vitals BP 145/78 (BP Location: Left arm, Patient Position: Lying) Pulse 57 Temp 36.3 C (97.4 F) (Temporal) Resp 16 Ht 1.6 m (5' 3") Wt 107 kg (236 lb 8 oz) SpO2 100% BMI 41.89 kg/m OB Status Tubal ligation Smoking Status Former BSA 2.18 m Admit Wt: Weight: 109 kg (240 lb) Todays Wt: Weight: 107 kg (236 lb 8 oz) Average, Min, and Max for last 24 hours Vitals: TEMPERATURE: Temp Av.3 C (97.3 F) Min: 36 C (96.8 F) Max: 36.7 C (98 F) RESPIRATIONS RANGE: Resp Av.5 Min: 16 Max: 18 PULSE RANGE: Pulse Av.8 Min: 57 Max: 70 BLOOD PRESSURE RANGE: Systolic (24hrs), Av , Min:123 , Max:145 Diastolic (24hrs), Av, Min:72, Max:78 PULSE OXIMETRY RANGE: SpO2 Av % Min: 96 % Max: 100 % Estimated body mass index is 41.89 kg/m as calculated from the following: Height as of this encounter: 1.6 m (5' 3"). Weight as of this encounter: 107 kg (236 lb 8 oz). Intake/Output Summary (Last 24 hours) at 03/10/2025 1037 Last data filed at 03/10/2025 0808 Gross per 24 hour Intake 1230 ml Output 2250 ml Net -1020 ml General: A&O x 3, NAD HEENT: Sclera clear, EOMI, MMM, Nose/ears/hearing grossly normal Neck: Supple, trachea midline, no mass, no TM Heart: RRR, no rub/heave Lungs: Clear bilaterally, unlabored Abd: Soft, (+) BS, non-tender Ext: legs edematous; pitting edema worse in LLE than RLE. Neuro: No tremor/myoclonus Skin: warm and dry, no rash [facility]ante Cath DATA: LABS: Recent Labs 03/08/25225 WBC 7.8 HGB 8.4* HCT 25.4* MCV 95.5 PLT 228 Recent Labs 03/08/25 0226 03/08/25 1017 03/09/25 0417 03/10/25 0216 NA 125* 129* 130* 131* K 4.4 -- 4.9 5.1 CL 98 -- 100 99 CO2 24 -- 22 22 BUN 17 -- 22 29* CREATININE 1.81* -- 2.09* 2.18* GLUCOSE 85 -- 80 74 CALCIUM 8.3* -- 8.5 8.7 PHOS -- -- -- 4.2 ANIONGAP 3 -- 8 10 ALBUMIN -- -- -- 2.6* Lab Results Component Value Date PTH 161.6 (H) 04/17/2024 CALCIUM 8.7 03/10/2025 PHOS 4.2 03/10/2025 No results for input(s): "INR", "PROTIME", "PTT" in the last 72 hours. Lab Results Component Value Date IRON 37 (L) 01/02/2025 TIBC 146 (L) 01/02/2025 FERRITIN 254 (H) 10/04/2024 Lab Results Component Value Date [id number] 03/08/2025 FOLATE 3.7 (L) 03/08/2025 Lab Results Component Value Date COLORU Colorless 03/07/2025 CLARITYU Clear 03/07/2025 GLUCOSEU Normal 03/07/2025 BLOODU Negative 03/07/2025 UROBILINOGEN Normal 03/07/2025 Lab Results Component Value Date HEPAIGM Not Detected 08/25/2023 HEPBIGM Not Detected 08/25/2023 HEPCAB Not Detected 08/18/2024 No lab exists for component: POCGMD No results for input(s): "ALT", "AST", "GGT", "ALKPHOS", "BILITOT", "LIPASE" in the last 72 hours. No results for input(s): "CKTOTAL", "CKMB", "CKMBINDEX", "TROPONINI", "BNP" in the last 72 hours. No lab exists for component: NTPROBNP Recent Labs 03/09/25 0417 TRIG 93 HDL 34* No components found for: "LABA1C" No results for input(s): "LACTATE" in the last 72 hours. No results found for: "FIBRINOGEN" No results for input(s): "CRP" in the last 72 hours. No lab exists for component: "ESR" Lab Results Component Value Date CRP 7.1 04/05/2022 No results found for: "LABGRAM" No components found for: "LABFUNG" IMAGING: ECG 12 lead Sinus rhythm normal axis and intervals Anterior T wave abnormality seen in previous EKG has resolved. Electronically Signed On 03-07-2025 05:36:29 EDT by Hever Duncan Signed: Eva Andre MD Nephrology [facility] ([facility]) Pager: [phone] Office Office [1] divalproex, 250 mg, Oral, TID WC DULoxetine, 60 mg, Oral, Daily furosemide, 20 mg, Oral, Daily lamoTRIgine, 150 mg, Oral, Nightly levothyroxine, 125 mcg, Oral, Daily metoprolol tartrate, 100 mg, Oral, BID risperiDONE, 3 mg, Oral, Nightly rosuvastatin, 10 mg, Oral, Daily sodium chloride 0.9%, 5-40 mL, IntraVENous, q12h traZODone, 100 mg, Oral, Nightly Images from the original note were not included. NEPHROLOGY SOAP NOTE Visit date: 03/09/25, 10:47 AM Patient: Jessy Mckeon Room number: [id number] A Date of Admit: 03/06/2025 LOS: 2 days Referring physician: Tunde Tucker MD Outpatient Leach Cell Operator: Eva Andre MD ASSESSMENT/PLAN: Hyponatremia - chronic and near typical levels. Currently, this appears to be hypervolemic with complication of psychogenic polydipsia. She has a complicated history with documented nephrogenic DI (past) and pseudohyponatremia (recent). She consistently has been able to produce a dilute urine, so she does not have SIADH (despite multiple medications that may cause it). Continue 2 gram sodium restriction and furosemide 20 mg daily. Agree with 1500 mL fluid restriction. If her serum osmolality improves to normal, will try to liberalize her fluid intake to 2000 mL even if she remains hyponatremic - recheck tomorrow AM Stage G4 CKD - serum creatinine currently better than typical baseline. Monitor for now Adjust medications based on: Estimated Creatinine Clearance: 35.1 mL/min (A) (by C-G formula based on SCr of 2.09 mg/dL (H)). SUBJECTIVE: Patient with chronic, stable medical conditions as documented in the initial consultation. Interval history reviewed: no acute events Patient sleeping comfortably this AM OBJECTIVE: CURRENT MEDICATIONS: Scheduled Meds[1] PHYSICAL EXAMINATION: Visit Vitals BP 138/77 (BP Location: Left arm, Patient Position: Lying) Pulse 51 Temp 36.3 C (97.3 F) (Temporal) Resp 20 Ht 1.6 m (5' 3") Wt 111 kg (245 lb) SpO2 99% BMI 43.40 kg/m OB Status Tubal ligation Smoking Status Former BSA 2.22 m Admit Wt: Weight: 109 kg (240 lb) Todays Wt: Weight: 111 kg (245 lb) Average, Min, and Max for last 24 hours Vitals: TEMPERATURE: Temp Av.4 C (97.5 F) Min: 36 C (96.8 F) Max: 36.8 C (98.3 F) RESPIRATIONS RANGE: Resp Av.3 Min: 12 Max: 20 PULSE RANGE: Pulse Av.2 Min: 51 Max: 71 BLOOD PRESSURE RANGE: Systolic (24hrs), Av , Min:114 , Max:150 Diastolic (24hrs), Av, Min:58, Max:86 PULSE OXIMETRY RANGE: SpO2 Av.2 % Min: 96 % Max: 100 % Estimated body mass index is 43.4 kg/m as calculated from the following: Height as of this encounter: 1.6 m (5' 3"). Weight as of this encounter: 111 kg (245 lb). Intake/Output Summary (Last 24 hours) at 03/09/2025 1047 Last data filed at 03/09/2025 0641 Gross per 24 hour Intake 1860 ml Output 3500 ml Net -1640 ml General: A&O x 3, NAD HEENT: Sclera clear, EOMI, MMM, Nose/ears/hearing grossly normal Neck: Supple, trachea midline, no mass, no TM Heart: RRR, no rub/heave Lungs: Clear bilaterally, unlabored Abd: Soft, (+) BS, non-tender Ext: legs edematous; pitting edema worse in LLE than RLE. Neuro: No tremor/myoclonus Skin: warm and dry, no rash [facility] DATA: LABS: Recent Labs 03/06/25 2330 03/08/25 0226 WBC 8.0 7.8 HGB 8.8* 8.4* HCT 25.3* 25.4* MCV 92.3 95.5 PLT 211 228 Recent Labs 03/06/25 2330 03/07/25 1105 03/08/25 0226 03/08/25 1017 03/09/25 0417 NA 121* 128* 125* 129* 130* K 4.3 4.1 4.4 -- 4.9 CL 92* 99 98 -- 100 CO2 23 20* 24 -- 22 BUN 20 16 17 -- 22 CREATININE 2.14* 1.88* 1.81* -- 2.09* GLUCOSE 92 88 85 -- 80 CALCIUM 8.7 8.5 8.3* -- 8.5 ANIONGAP 6 9 3 -- 8 ALBUMIN 3.0* -- -- -- -- Lab Results Component Value Date PTH 161.6 (H) 04/17/2024 CALCIUM 8.5 03/09/2025 PHOS 3.6 10/04/2024 No results for input(s): "INR", "PROTIME", "PTT" in the last 72 hours. Lab Results Component Value Date IRON 37 (L) 01/02/2025 TIBC 146 (L) 01/02/2025 FERRITIN 254 (H) 10/04/2024 Lab Results Component Value Date [id number] 03/08/2025 FOLATE 3.7 (L) 03/08/2025 Lab Results Component Value Date COLORU Colorless 03/07/2025 CLARITYU Clear 03/07/2025 GLUCOSEU Normal 03/07/2025 BLOODU Negative 03/07/2025 UROBILINOGEN Normal 03/07/2025 Lab Results Component Value Date HEPAIGM Not Detected 08/25/2023 HEPBIGM Not Detected 08/25/2023 HEPCAB Not Detected 08/18/2024 No lab exists for component: POCGMD Recent Labs 03/06/25 2330 ALT <6 AST 26 ALKPHOS 55 BILITOT 0.3 No results for input(s): "CKTOTAL", "CKMB", "CKMBINDEX", "TROPONINI", "BNP" in the last 72 hours. No lab exists for component: NTPROBNP Recent Labs 03/09/25 0417 TRIG 93 HDL 34* No components found for: "LABA1C" No results for input(s): "LACTATE" in the last 72 hours. No results found for: "FIBRINOGEN" No results for input(s): "CRP" in the last 72 hours. No lab exists for component: "ESR" Lab Results Component Value Date CRP 7.1 04/05/2022 No results found for: "LABGRAM" No components found for: "LABFUNG" IMAGING: ECG 12 lead Sinus rhythm normal axis and intervals Anterior T wave abnormality seen in previous EKG has resolved. Electronically Signed On 03-07-2025 05:36:29 EDT by Hever Duncan Signed: Eva Andre MD Nephrology [facility] ([facility] Pager: [phone] Office Office [1] divalproex, 250 mg, Oral, TID WC DULoxetine, 60 mg, Oral, Daily furosemide, 20 mg, Oral, Daily lamoTRIgine, 150 mg, Oral, Nightly levothyroxine, 125 mcg, Oral, Daily metoprolol tartrate, 100 mg, Oral, BID risperiDONE, 3 mg, Oral, Nightly rosuvastatin, 10 mg, Oral, Daily sodium chloride 0.9%, 5-40 mL, IntraVENous, q12h traZODone, 100 mg, Oral, Nightly Hospitalist Progress Note 03/09/2025 9:45 AM Subjective: Admit Date: 03/06/2025 PCP: Edith Pierce MD Jessy is a 60 y.o. female with past medical history below who presents with complaints of generalized weakness and an inability to care for self. Patient was just discharged about 1.5 months ago from here with similar presentation, was discharged to custodial facility. Patient states that she is not receiving a required amount of care for her, EMS was apparently called for a lift assist after she slid from a chair to the floor, and was requesting placement in a new facility. In the ED she was hemodynamically stable her only lab abnormality compared to baseline was her sodium was low at 121. Interval History: pt awake Upset about fluid restrict Somewhat tangential about SNF/ facility No overnight issues. Denies chest pain, 03/09 Pt resting comfortably No new issues Adult diet Regular; Low Sodium (2 gm); 1500 ml @IODETAILS@ @[email or web address]@ Medications: Continuous Meds[1] Scheduled Meds[2] Recent Labs 03/06/25 2330 03/08/25 0226 WBC 8.0 7.8 HGB 8.8* 8.4* PLT 211 228 Recent Labs 03/07/25 1105 03/08/25 0226 03/08/25 1017 03/09/25 0417 NA 128* 125* 129* 130* K 4.1 4.4 -- 4.9 CL 99 98 -- 100 CO2 20* 24 -- 22 BUN 16 17 -- 22 CREATININE 1.88* 1.81* -- 2.09* GLUCOSE 88 85 -- 80 Recent Labs 03/06/25 2330 AST 26 ALT <6 BILITOT 0.3 ALKPHOS 55 Lab Results Component Value Date TRIG 93 03/09/2025 HDL 34 (L) 03/09/2025 LDLCALC 63 03/09/2025 CHOL 116 03/09/2025 No results for input(s): "INR" in the last 72 hours. No results for input(s): "CKTOTAL", "CKMB", "TROPONINI" in the last 72 hours. Objective: Vitals: BP 138/77 (BP Location: Left arm, Patient Position: Lying) Pulse 51 Temp 36.3 C (97.3 F) (Temporal) Resp 20 Ht 5' 3" (1.6 m) Wt 245 lb (111 kg) SpO2 99% BMI 43.40 kg/m Pulse Ox: SpO2 Av.2 % Min: 96 % Max: 100 % Supplemental O2: General appearance: sleeping Lungs: clear to auscultation bilaterally Heart: RRR Abdomen: soft, non-tender; bowel sounds normal; no masses, no organomegaly Extremities: extremities normal, atraumatic, no cyanosis or edema Neurologic: No obvious focal neurologic deficits. Assessment Principal Problem: Hyponatremia Acute, acute on chronic, unstable/uncontrolled chronic problems/diagnoses: Recurrent falls Unable to care for self Hyponatremia Stable chronic problems affecting care, new non-acute diagnoses: [Medical History] [Medical History] Past Medical History Diagnosis Date Acid reflux Anxiety Arthritis Asperger syndrome Bipolar disorder (HCC) Chronic kidney disease stage 4 kidney failure Chronic pain Depression Edema of both legs GERD (gastroesophageal reflux disease) Hemorrhoids Hyperlipidemia Hypertension Hypothyroidism Iron (Fe) deficiency anemia Nephrogenic diabetes insipidus (HCC) Pain management Retention of urine, unspecified Sciatica SOB (shortness of breath) GRANT Type II or unspecified type diabetes mellitus without mention of complication, not stated as uncontrolled (HCC) Urinary incontinence nightly Following Na-- per prior noted 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-- renal following-- improved Cont supportive care PT/OT SW for placement Psych following as well, adjust medication per them Anticipated Discharge - Date - 03/11 - Location - Skilled Facility - Pending the following - course Total time spent (which include face to face and non face to face encounters) : 43 minutes See orders, continue POC Advance Directive: Full Code Tunde Tucker MD, [facility] Hospitalist [1] [2] divalproex, 250 mg, Oral, TID WC DULoxetine, 60 mg, Oral, Daily furosemide, 20 mg, Oral, Daily lamoTRIgine, 150 mg, Oral, Nightly levothyroxine, 125 mcg, Oral, Daily metoprolol tartrate, 100 mg, Oral, BID risperiDONE, 3 mg, Oral, Nightly rosuvastatin, 10 mg, Oral, Daily sodium chloride 0.9%, 5-40 mL, IntraVENous, q12h traZODone, 100 mg, Oral, Nightly Nutrition Assessment Type and Reason for Visit: Initial, Positive Nutrition Screen, Wound Nutrition Recommendations/Plan: Continue Adult diet Regular; Low Sodium (2 gm); 1500 ml Mtr po intakes and hyponatremia, consider need for high protein ONS Please document % of po/ONS intakes in nsg flowsheets for accurate review of po trends Please obtain standing scale or zero'd out bed scale wts for more accurate review of anthropometric data and record in EMR Will continue to monitor labs, meds, po intakes and/or enteral nutrition tolerance, skin integrity, wt trends, and overall nutrition status - RD to follow weekly Malnutrition Assessment: Malnutrition Status: Insufficient data Context: Acute Illness Findings of the 6 clinical characteristics of malnutrition: Energy Intake: No significant decrease in energy intake Weight Loss: No significant weight loss Body Fat Loss: Unable to assess Muscle Mass Loss: Unable to assess Fluid Accumulation: Mild Extremities Clinical Nursing Instructor Strength: Not Performed Chief Complaint Patient presents with Weakness, Gen Per EMS "she lives in assisted living and is unable to take care of herself, she said she [facility] which [facility] a [facility]." Fall EMS was called for a lift assist, she slid from her chair to the floor. Past Medical and Surgical History: Medical History[1] Surgical History[2] 03/08/25 Interval History: pt awake Upset about fluid restrict Somewhat tangential about SNF/ facility Nutrition Assessment: Jessy is a 60 y.o. female with past medical history below who presents with complaints of generalized weakness and an inability to care for self. Patient was just discharged about 1.5 months ago from here with similar presentation, was discharged to custodial facility. Patient states that she is not receiving a required amount of care for her, EMS was apparently called for a lift assist after she slid from a chair to the floor, and was requesting placement in a new facility. In the ED she was hemodynamically stable her only lab abnormality compared to baseline was her sodium was low at 121. LOS# 1. 60F w/ significant PMHx: HTN, HLD, hypothyroidism, CKD, Asperger syndrome, EDSON, and bipolar disorder who arrived by EMS from [facility] after falling off of her couch with another fall. Pt was subsequently admitted for severe hyponatremia. "Hyponatremia chronic and near typical levels per nephro "Currently, this appears to be hypervolemic with complication of psychogenic polydipsia. Agree with fluid restriction. Add 2 gram sodium restriction and furosemide 20 mg daily. She has a complicated history with documented nephrogenic DI (past) and pseudohyponatremia (recent). She consistently has been able to produce a dilute urine, so she does not have SIADH (despite multiple medications that may cause it). If her serum osmolality improves to normal, will try to liberalize her fluid intake even if she remains hyponatremic." No need for salt tabs at this time. Estimated Daily Nutrient Needs: Energy Requirements Based On: Kcal/kg Weight Used for Energy Requirements: [place] Weight for Energy Calculation (kg): 52 kg Total Energy Requirements (kcals/day): 3588-6154 (25-30 kcals/kg) Weight Used for Protein Requirements: [place] Weight in Kg Used for Protein Requirements: 52 kg Estimated Total Protein (g/day): 42-52 (0.8-1 g/kg) Estimated Daily Total Fluid (ml/day): 1 ml/kcal or per MD Nutrition Related Findings: Wound Type: None (blanchable redness) Isolation Status: No active isolations Food Allergies: NKFA Teeth: Missing teeth Room Service: Assist Adam Scale Score: 14 BLE Edema: Mild pitting, slight indentation Abdomen Inspection: Soft, Rounded; Abdominal Tenderness: Soft, No guarding Bowel Sounds (All Quadrants): Active Level of Consciousness: Alert; Orientation Level: Oriented X4 Code Status, Oxygen Needs, Vital Signs, I/Os: Code Status: Full Code Oxygen Therapy: SpO2: 100 %; Oxygen Therapy: None (Room air) Vital Signs: Temp: 36.1 C (97 F); Heart Rate: 57; Resp: 16; BP: 150/77; MAP (mmHg): 101 Net IO Since Admission: -1,850 mL [03/08/25 1650] Intake/Output Summary (Last 24 hours) at 03/08/2025 1650 Last data filed at 03/08/2025 1429 Gross per 24 hour Intake 2650 ml Output 4500 ml Net -1850 ml Labs/Meds Reviewed: Scheduled Meds[3] Continuous Meds[4] BMP: Recent Labs 03/06/25 2330 03/07/25 1105 03/08/25 0226 03/08/25 1017 NA 121* 128* 125* 129* K 4.3 4.1 4.4 -- CL 92* 99 98 -- CO2 23 20* 24 -- BUN 20 16 17 -- CREATININE 2.14* 1.88* 1.81* -- GLUCOSE 92 88 85 -- CALCIUM 8.7 8.5 8.3* -- HEPATIC: Recent Labs 03/06/25 2330 AST 26 ALT <6 BILITOT 0.3 ALKPHOS 55 Current Nutrition Therapies: Adult diet Regular; Low Sodium (2 gm); 1500 ml Anthropometric Measures: Height: 160 cm (5' 3") Current Body Weight: 112 kg (247 lb) [place] Body Weight (lbs) (Calculated): 115 lbs [place] Body Weight (Kg) (Calculated): 52 kg % [place] Body Weight (Calculated): 214.8 % BMI (kg/m2) (Calculated): 43.8 Weight Adjustment For: No Adjustment BMI (Calculated): 43.76 Weight: 112 kg (247 lb) Weight Method: Bed scale Weight History: Wt Readings from Last 20 Encounters: 03/08/25 112 kg (247 lb) 01/08/25 117 kg (258 lb 3.2 oz) 12/29/24 113 kg (250 lb) 12/28/24 109 kg (240 lb) 12/25/24 136 kg (300 lb) 11/15/24 136 kg (300 lb) 11/03/24 136 kg (300 lb) 10/04/24 131 kg (288 lb 6.4 oz) 09/18/24 123 kg (272 lb) 08/10/24 120 kg (263 lb 7.2 oz) 06/28/24 125 kg (275 lb 9.6 oz) 06/14/24 125 kg (276 lb) 09/04/23 111 kg (245 lb) 06/20/23 111 kg (245 lb) 03/22/23 113 kg (249 lb 4.8 oz) 06/01/22 108 kg (238 lb) 05/03/22 110 kg (243 lb) 03/30/22 108 kg (237 lb) 03/24/22 109 kg (240 lb) 03/15/22 108 kg (239 lb) Nutrition Diagnosis: Altered nutrition-related lab values related to renal dysfunction (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) as evidenced by other (comment), lab values (excessive fluid intake) Nutrition Interventions: Food and/or Nutrient Delivery: Continue Current Diet Nutrition Education/Counseling: No recommendation at this time Coordination of Nutrition Care: Continue to monitor while inpatient Goals: Goals: Meet at least 75% of estimated needs, other (specify) Specify Other Goals: improvement in nutrition r/t labs Nutrition Monitoring and Evaluation: Behavioral-Environmental Outcomes: None Identified Food/Nutrient Intake Outcomes: Food and Nutrient Intake Physical Signs/Symptoms Outcomes: Biochemical Data, Weight, Fluid Status or Edema Discharge Planning: Too soon to determine Zehra Gomez MS, RD, LD Contact: or [employer] (dial *[phone] from hospital phone) [1] Past Medical History: Diagnosis Date Acid reflux Anxiety Arthritis Asperger syndrome Bipolar disorder (HCC) Chronic kidney disease stage 4 kidney failure Chronic pain Depression Edema of both legs GERD (gastroesophageal reflux disease) Hemorrhoids Hyperlipidemia Hypertension Hypothyroidism Iron (Fe) deficiency anemia Nephrogenic diabetes insipidus (HCC) Pain management Retention of urine, unspecified Sciatica SOB (shortness of breath) GRANT Type II or unspecified type diabetes mellitus without mention of complication, not stated as uncontrolled (HCC) Urinary incontinence nightly [2] Past Surgical History: Procedure Laterality Date 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 female with past medical history below who presents with complaints of generalized weakness and an inability to care for self. Patient was just discharged about 1.5 months ago from here with similar presentation, was discharged to custodial facility. Patient states that she is not receiving a required amount of care for her, EMS was apparently called for a lift assist after she slid from a chair to the floor, and was requesting placement in a new facility. In the ED she was hemodynamically stable her only lab abnormality compared to baseline was her sodium was low at 121. Interval History: pt awake Upset about fluid restrict Somewhat tangential about SNF/ facility No overnight issues. Denies chest pain, Adult diet Regular; Low Sodium (2 gm); 1500 ml @IODETAILS@ @[id number]@ Medications: Continuous Meds[1] Scheduled Meds[2] Recent Labs 03/06/25232903/08/25225 WBC 8.0 7.8 HGB 8.8* 8.4* PLT 211 228 Recent Labs 03/06/25232903/07/25 1105 03/08/25 0226 03/08/25 1017 NA 121* 128* 125* 129* K 4.3 4.1 4.4 -- CL 92* 99 98 -- CO2 23 20* 24 -- BUN 20 16 17 -- CREATININE 2.14* 1.88* 1.81* -- GLUCOSE 92 88 85 -- Recent Labs 03/06/252329 AST 26 ALT <6 BILITOT 0.3 ALKPHOS 55 No results found for: "TRIG", "HDL", "LDLCALC", "CHOL" No results for input(s): "INR" in the last 72 hours. No results for input(s): "CKTOTAL", "CKMB", "TROPONINI" in the last 72 hours. Objective: Vitals: BP 150/77 (BP Location: Left arm, Patient Position: Sitting) Pulse 57 Temp 36.1 C (97 F) (Temporal) Resp 16 Ht 5' 3" (1.6 m) Wt 247 lb (112 kg) SpO2 100% BMI 43.75 kg/m Pulse Ox: SpO2 Av.6 % Min: 94 % Max: 100 % Supplemental O2: General appearance: Alert and cooperative with exam Lungs: clear to auscultation bilaterally Heart: regular rate and rhythm, S1, S2 normal, no murmur, click, rub or gallop Abdomen: soft, non-tender; bowel sounds normal; no masses, no organomegaly Extremities: extremities normal, atraumatic, no cyanosis or edema Neurologic: No obvious focal neurologic deficits. Assessment Principal Problem: Hyponatremia Acute, acute on chronic, unstable/uncontrolled chronic problems/diagnoses: Recurrent falls Unable to care for self Hyponatremia Stable chronic problems affecting care, new non-acute diagnoses: [Medical History] [Medical History] Past Medical History Diagnosis Date Acid reflux Anxiety Arthritis Asperger syndrome Bipolar disorder (HCC) Chronic kidney disease stage 4 kidney failure Chronic pain Depression Edema of both legs GERD (gastroesophageal reflux disease) Hemorrhoids Hyperlipidemia Hypertension Hypothyroidism Iron (Fe) deficiency anemia Nephrogenic diabetes insipidus (HCC) Pain management Retention of urine, unspecified Sciatica SOB (shortness of breath) GRANT Type II or unspecified type diabetes mellitus without mention of complication, not stated as uncontrolled (HCC) Urinary incontinence nightly Following Na-- per prior noted 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-- renal to see Cont supportive care PT/OT SW for placement Psych to see as well, pt reports she is not sure what medications she is taking-- does look like adjusted in December Anticipated Discharge - Date - 03/10 - Location - Skilled Facility - Pending the following - course Total time spent (which include face to face and non face to face encounters) : 46 minutes See orders, continue POC Advance Directive: Full Code Tunde Tucker MD, [facility] Hospitalist [1] [2] divalproex, 250 mg, Oral, TID WC DULoxetine, 60 mg, Oral, Daily furosemide, 20 mg, Oral, Daily lamoTRIgine, 150 mg, Oral, Nightly levothyroxine, 125 mcg, Oral, Daily metoprolol tartrate, 100 mg, Oral, BID risperiDONE, 3 mg, Oral, Nightly rosuvastatin, 10 mg, Oral, Daily sodium chloride 0.9%, 5-40 mL, IntraVENous, q12h Nutrition rescreen completed. Chart reviewed. 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 AMANDA Pedersen Images from the original note were not included. PHYSICAL THERAPY [facility] Initial Evaluation Name/MRN: Jessy Mckeon ([id number]) Evaluation Date: 03/07/2025 Date of : 1965 Admission Date: 03/06/2025 9:43 PM Age: 60 y.o. Room/Bed: 40/40 Discharge Recommendation: Snf Facility Other: tbd Assessment IMPRESSION: Pt presents with generalized weakness impacting mobility and functional independence. At evaluation, pt required max assist for bed mobility and is unable to ambulate at this time. Pt with decreased activity tolerance and reports fatigue during minimal exertion. Pt reported multiple falls. Skilled therapy is necessary to address strength, balance and endurance impairments to reduce fall risk an improve overall functional mobility. Recommend SNF at discharge. Admitting Diagnosis: Hyponatremia Prognosis: fair Performance Deficits /Impairments: Increased Pain, Decreased Functional Mobility, Decreased ADL status, Decreased Strength, Decreased Endurance, and Decreased Balance Decision Making: Medium Complexity Subjective Pt in bed. Agree with PT treatment. Pain: [place]leston-Tam Pain Ratin = Hurts little more Pain Location: back Past Medical History: Medical History[1] Past Surgical History: Surgical History[2] Admission Diagnosis: Patient Active Problem List Diagnosis Date Noted Fall, initial encounter 12/30/2024 Lower extremity edema 10/02/2024 Fluid overload 08/03/2024 Hypervolemia, unspecified hypervolemia type 08/03/2024 Acute cystitis without hematuria 06/28/2024 Chronic renal disease, stage IV ([facility]) 06/20/2023 Chronic kidney disease, stage 3b ([facility]) 06/20/2023 Urinary tract infection without hematuria, site unspecified 03/17/2023 Urinary tract infection 03/16/2023 Depression 12/23/2021 Localized edema 01/11/2019 Schizoaffective disorder (CMS/HCC) ([facility]) 06/05/2018 Suicidal ideations 05/22/2018 Chronic schizoaffective disorder ([facility]) 05/22/2018 Acute gastric ulcer without hemorrhage or perforation 03/28/2018 Diverticulosis of large intestine without diverticulitis 03/28/2018 Chronic antral gastritis 03/28/2018 First degree hemorrhoids 03/28/2018 Dyspnea 03/03/2018 Urinary retention 03/02/2018 Chest pain 02/14/2018 Hyponatremia 02/12/2018 Hypothyroidism 10/12/2017 Morbid obesity with BMI of 45.0-49.9, adult ([facility]) 10/12/2017 Hypomagnesemia 10/12/2017 JOSE A (acute kidney injury) ([facility]) 10/12/2017 Chronic bilateral low back pain with bilateral sciatica 10/12/2017 Psychogenic polydipsia 10/12/2017 Hypertension 10/12/2017 Bipolar disorder ([facility]) 10/12/2017 Iron (Fe) deficiency anemia 10/09/2017 Primary hypothyroidism 06/13/2017 Pneumonia 06/13/[address] 06/13/2017 Urge incontinence of urine 01/12/2017 Nocturia 10/15/2016 Urge incontinence 10/15/2016 Rotator cuff strain 11/03/2015 Osteoarthritis of patellofemoral joint 11/03/2015 Anxiety 04/03/2015 GERD (gastroesophageal reflux disease) 04/03/2015 Urinary incontinence 04/03/2015 Medical Precautions: No active isolations Proper PPE donned/doffed in accordance with facility standards. Fall Risk: (High Risk) Precautions/Restrictions: N/A Family/Caregiver Present: none Overall Cognitive Status: Exceptions - Initiation: requires cues for some - Sequencing: requires cues for some Overall Orientation Status: Oriented to Person Vision: Not Assessed Hearing: normal Social/Functional History Poor historian. Prior Level of Function Prior Level of ADL Function: Required Assist Prior Level of Mobility: Required Assist; Device: Front wheeled walker Prior Level of Transfers: Required Assist Objective Lower Extremity Assessment AROM: Impaired: left flex 10, right 30 PROM: Impaired: knee flex 45, limited by pain Strength: Lower Extremity Strength Right Left Hip Flexion 2+ 2 Hip Abduction Hip Extension Hip External Rotation (ER) Hip Internal Rotation (IR) Knee Extension 3+ 3+ Knee Flexion Ankle Dorsiflexion (DF) Ankle Plantarflexion (PF) 3+ 3+ Inversion Eversion Sensation: WFL Balance: Not assessed this session Bed Mobility: Supine to sit: Max Assist To long sitting, only able to complete 25%, as pt c/o weakness and back pain Transfers NA, recommend mechanical lift at this time. Ambulation NA Outcome Measures AM-PAC How much HELP from another person do you currently need Turning from your back to your side while in a flat bed without using bedrails?: A Lot Moving from lying on your back to sitting on the side of a flat bed without using bedrails?: Total Moving to and from a bed to a chair (including a wheelchair)?: Total Standing up from a chair using your arms (wheelchair or bedside chair)?: Total Walking in a hospital room?: Total Stair climbing assessed?: No AM-PAC Inpatient Mobility Raw Score (No Stairs) : 6 JH-HLM JH-HLM Score: Bed activity Plan Pt would benefit from skilled acute PT services to address Strengthening, Gait Training, Balance Training, and Functional Mobility Training. Frequency: 2x/weekfor 4 weeks Barriers: Pain, Impaired balance, Lower extremity weakness, Decreased endurance, and Cognitive deficit Safety/Education Safety Safety Devices in place: call light within reach, left in bed, and no alarms engaged upon entry Restraints: No Education Education Given To: patient Education Provided: PT Role, PT Goals, and Plan of Care Education Method: Verbal Barriers to Learning: Education Outcome: Verbalized Understanding and Continued Education Needed Goals Patient Stated Goal: To be able to walk. Encounter Problems Encounter Problems (Active) Balance Patient will maintain static standing balance for 3 minutes with min assist in order to demonstrate decreased risk of falling. Start: 03/07/25 Expected End: 04/04/25 Mobility Patient will ambulate 30 feet with min assist and rolling walker in order to improve safety and independence with mobility. Start: 03/07/25 Expected End: 04/04/25 Transfers Patient will perform bed mobility with min assist in order to improve independence and prepare for out of bed mobility. Start: 03/07/25 Expected End: 04/04/25 Patient will complete functional transfer with rolling walker with min assist in order to prepare for ambulation. Start: 03/07/25 Expected End: 04/04/25 Therapy Time Individual Co-Treatment Co-Evaluation Time In 1435 Time Out 1448 Minutes 13 Jennifer Aguilar PT Patient's Physical Therapy Plan of Care supervision is transferred to a [facility] Therapy Services Physical Therapist. Goals and/or treatment plan was established in collaboration with patient/family/other representatives. [1] Past Medical History: Diagnosis Date Acid reflux Anxiety Arthritis Asperger syndrome Bipolar disorder (HCC) Chronic kidney disease stage 4 kidney failure Chronic pain Depression Edema of both legs GERD (gastroesophageal reflux disease) Hemorrhoids Hyperlipidemia Hypertension Hypothyroidism Iron (Fe) deficiency anemia Nephrogenic diabetes insipidus (HCC) Pain management Retention of urine, unspecified Sciatica SOB (shortness of breath) GRANT Type II or unspecified type diabetes mellitus without mention of complication, not stated as uncontrolled (HCC) Urinary incontinence nightly [2] Past Surgical History: Procedure Laterality Date 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 CHOLECYSTECTOMY COLON SURGERY c-diff COLONOSCOPY 03/28/2018 no polyps UPPER GASTROINTESTINAL ENDOSCOPY 03/28/2018 Images from the original note were not included. Hospitalist Progress Note/Prolonged services 03/07/2025 [phone]: Please page me ([phone]) for patient care issues. [phone]: Please page [facility] night Hospitalist for any issues. Subjective: Admit Date: 03/06/2025 PCP: Edith Pierce MD Room#: 40/40 Follow up note on patient admitted after midnight. See H&P done earlier for details. All labs, diagnostic studies, imaging, and progress notes reviewed. Repeat BMP now. B12/folate, TSH, vit D. Therapy evals pending. 03/06/2025 9:44 AM 03/06/2025 9:54 PM 03/07/2025 12:05 AM 03/07/2025 2:00 AM 03/07/2025 4:15 AM 03/07/2025 6:15 AM 03/07/2025 8:33 AM Vitals Systolic 143 137 140 114 138 155 151 Diastolic 86 81 78 64 78 88 90 Heart Rate 97 70 72 70 75 72 76 Temp 36.8 C (98.2 F) Resp 16 16 16 16 16 16 18 SpO2 99 % 100 % 100 % 99 % 98 % 96 % 100 % Height (in) 5' 3" (1.6 m) Weight (lb) 240 BMI 42.51 kg/m2 BSA (m2) 2.2 m2 Acute, acute on chronic, unstable/uncontrolled chronic problems/diagnoses: Severe hyponatremia JOSE A Anemia Functional decline Recurrent falls Morbid obesity Stable chronic problems affecting care, new non-acute diagnoses: Past Medical History: Diagnosis Date Acid reflux Anxiety Arthritis Asperger syndrome Bipolar disorder (HCC) Chronic kidney disease stage 4 kidney failure Chronic pain Depression Edema of both legs GERD (gastroesophageal reflux disease) Hemorrhoids Hyperlipidemia Hypertension Hypothyroidism Iron (Fe) deficiency anemia Nephrogenic diabetes insipidus (HCC) Pain management Retention of urine, unspecified Sciatica SOB (shortness of breath) GRANT Type II or unspecified type diabetes mellitus without mention of complication, not stated as uncontrolled (HCC) Urinary incontinence nightly Total time spent (which include face to face and non face to face encounters) : 18 minutes Paul Anderson DO Division of Hospital Medicine Inpatient Medical Services/[facility] [place]: [phone] documented in this encounter [facility] 03-15-2025 Progress note Formatting of t his note might be different from the original. DC order received for [facility] of [place] approved. Task ATHLETIC GEAR CUSTODIAN to send MAR, DC paperwork and 7000 to [facility] of [place]. SW aware. RN aware. Patient aware. CM and ATHLETIC GEAR CUSTODIAN arranging transport. [facility] 03-15-2025 Note [facility] 03-15-2025 Hospital course Narrative Discharge Summary Jessy Mckeon : 1965 ADMIT DATE: 03/06/2025 DISCHARGE DATE: 03/15/2025 PRIMARY CARE PHYSICIAN: Edith Pierce VISIT STATUS: Admission CODE STATUS: Full Code DISCHARGE DIAGNOSES: Principal Problem: Hyponatremia HOSPITAL COURSE: Jessy is a 60 y.o. female with past medical history below who presents with complaints of generalized weakness and an inability to care for self. Patient was just discharged about 1.5 months ago from here with similar presentation, was discharged to custodial facility. Patient states that she is not receiving a required amount of care for her, EMS was apparently called for a lift assist after she slid from a chair to the floor, and was requesting placement in a new facility. In the ED she was hemodynamically stable her only lab abnormality compared to baseline was her sodium was low at 121. Admitted for further evaluation and treatment Nephrology following, cleared for discharge PT/OT recommends SNF Patient will be discharged to SNF today in stable condition Interval History: No acute overnight issues. Patient is seen and examined Comfortably resting in her bed, NAD, denies any new acute complaints Vitals reviewed, stable Labs reviewed, sodium 132, creatinine 2.69 Case and plan of care discussed with patient and bedside nurse. All questions answered Adult diet Regular; Low Sodium (2 gm) @[id number]@ 24HR INTAKE/OUTPUT: Intake/Output Summary (Last 24 hours) at 03/15/2025 1049 Last data filed at 03/15/2025 0900 Gross per 24 hour Intake 1290 ml Output 2200 ml Net -910 ml Past Medical History: [Medical History] [Medical History] Past Medical History Diagnosis Date Acid reflux Anxiety Arthritis Asperger syndrome Bipolar disorder (HCC) Chronic kidney disease stage 4 kidney failure Chronic pain Depression Edema of both legs GERD (gastroesophageal reflux disease) Hemorrhoids Hyperlipidemia Hypertension Hypothyroidism Iron (Fe) deficiency anemia Nephrogenic diabetes insipidus (HCC) Pain management Retention of urine, unspecified Sciatica SOB (shortness of breath) GRANT Type II or unspecified type diabetes mellitus without mention of complication, not stated as uncontrolled (HCC) Urinary incontinence nightly LABS: CBC: No results for input(s): "WBC", "RBC", "HGB", "HCT", "MCV", "RDW", "PLT" in the last 72 hours. BMP: Recent Labs 03/13/25 0027 03/14/25 0824 03/15/25 0534 NA 132* 133* 132* K 4.5 4.4 4.7 CL 100 101 100 CO2 25 22 21* BUN 43* 43* 53* CREATININE 2.55* 2.67* 2.69* GLUCOSE 95 76 78 CALCIUM 8.5 8.9 9.1 ANIONGAP 7 10 11 LIVER PROFILE:No results for input(s): "AST", "ALT", "BILITOT", "ALKPHOS", "PROT" in the last 72 hours. No lab exists for component: LABALBU PT/INR: No results for input(s): "PROTIME", "INR" in the last 72 hours. CARDIAC ENZYMES: No results for input(s): "TROPONINI" in the last 72 hours. Procalcitonin: No results found for: "PROCAL" COVID-19 PCR: No results for input(s): "COVID19" in the last 72 hours. Objective: Vitals: BP 124/73 (BP Location: Left arm, Patient Position: Lying) Pulse 50 Temp 36.6 C (97.8 F) (Temporal) Resp 16 Ht 5' 3" (1.6 m) Wt 230 lb (104 kg) SpO2 100% BMI 40.74 kg/m Pulse Ox: SpO2 Av.5 % Min: 97 % Max: 100 % Supplemental O2: Physical Exam Constitutional: Appearance: She is obese. HENT: Head: Normocephalic and atraumatic. Mouth/Throat: Mouth: Mucous membranes are moist. Cardiovascular: Rate and Rhythm: Bradycardia present. Pulmonary: Effort: Pulmonary effort is normal. Abdominal: Palpations: Abdomen is soft. Skin: General: Skin is warm and dry. Neurological: Mental Status: She is alert. Psychiatric: Mood and Affect: Mood normal. Medications: [Continuous Meds] [Continuous Meds] [Scheduled Meds] [Scheduled Meds] bisacodyl, 10 mg, Rectal, Daily buprenorphine, 1 patch, TransDERmal, Weekly divalproex, 250 mg, Oral, TID WC DULoxetine, 60 mg, Oral, Daily lamoTRIgine, 150 mg, Oral, Nightly levothyroxine, 125 mcg, Oral, Daily metoprolol tartrate, 75 mg, Oral, BID risperiDONE, 3 mg, Oral, Nightly rosuvastatin, 10 mg, Oral, Daily sodium chloride 0.9%, 5-40 mL, IntraVENous, q12h traZODone, 100 mg, Oral, Nightly Assessment Acute, acute on chronic, unstable/uncontrolled chronic problems/diagnoses: Recurrent falls Unable to care for self Hyponatremia with sodium of 121 on admission Bradycardia - reduce lopressor to 75mg BID (was 100mg bid). Stable chronic problems affecting care, new non-acute diagnoses: GERD History of anxiety and depression Chronic arthritis History of Asperger syndrome History of bipolar disorder CKD stage IV - Nephrology following. Chronic pain syndrome-sees pain management History of hemorrhoids Chronic hypertension Hyperlipidemia History of sciatica Diabetes mellitus type 2 History of urine incontinence Plan - Nephrology following - Continue with lopressor to 75mg bid. - Robitussin as needed started - PT saw and recommending SNF. - Patient will be discharged to SNF today in stable condition SIGNIFICANT DIAGNOSTIC STUDIES: XR chest 1 view [[id number]] Collected: 03/06/252311 Order Status: Completed Updated: 03/06/252312 Narrative: Patient Name: JESSY MCKEON : 1965 Exam Date/Time: 03/06/2025 23:02 Procedure: XR CHEST 1 VIEW Ordering Provider: TALBOT SHAYA Reason For Exam: weakness SINGLE FRONTAL VIEW OF THE CHEST CLINICAL INDICATION: weakness TECHNIQUE: Single frontal view of the chest COMPARISON: 11/15/2024 FINDINGS: Lungs are show no significant consolidation. No pleural effusion or pneumothorax. No vascular congestion. Heart size mildly enlarged. Impression: 1. No acute finding. Report Dictated on Electronically Signed By: Dinesh Chacon MD Electronically Signed Date/Time: 03/06/2025 11:12 PM EDT XR elbow 3+ views left [[id number]] Collected: 03/06/2546 Order Status: Completed Updated: 03/06/2548 Narrative: Patient Name: JESSY MCKEON : 1965 Exam Date/Time: 03/06/2025 05:56 Procedure: XR ELBOW 3+ VIEWS LEFT Ordering Provider: ROTH MICHAEL Reason For Exam: pain/bruising after fall LEFT ELBOW CLINICAL INDICATION: Pain after trauma pain/bruising after fall TECHNIQUE: AP, lateral, and oblique plain film views of the left elbow. COMPARISON: None FINDINGS: No fracture or dislocation of the left elbow is identified. There is no joint effusion or radiopaque foreign body. Impression: Negative plain film examination of the left elbow. Report Dictated on Electronically Signed By: Mary Nielsen MD Electronically Signed Date/Time: 03/06/2025 6:47 AM EDT XR knee 3 views left [[id number]] Collected: 03/06/2544 Order Status: Completed Updated: 03/06/25646 Narrative: Patient Name: JESSY MCKEON : 1965 Exam Date/Time: 03/06/2025 05:56 Procedure: XR KNEE 3 VIEWS LEFT Ordering Provider: ROTH MICHAEL Reason For Exam: pain after fall LEFT KNEE CLINICAL INDICATION: pain after fall 3 views of the left knee. COMPARISON: None FINDINGS: Limited views with poor patient positioning. A true lateral view was not performed. The patella cannot be assessed. Severe tricompartmental degenerative changes with joint space loss and large osteophytes. Impression: Poorly positioned study with no fracture identified. Recommend repeat views if symptoms persist. Severe osteoarthritis. Report Dictated on Electronically Signed By: Mary Nielsen MD Electronically Signed Date/Time: 03/06/2025 6:46 AM EDT XR pelvis 1 or 2 views [[id number]] Collected: 03/06/25643 Order Status: Completed Updated: 03/06/25644 Narrative: Patient Name: JESSY MCKEON : [address] [facility]#: [id number] Exam Date/Time: 03/06/2025 05:56 Procedure: XR PELVIS 1-2 VIEWS Ordering Provider: ROTH MICHAEL Reason For Exam: pain after fall AP PELVIS CLINICAL INDICATION: pain after fall A single AP view of the pelvis was obtained. COMPARISON: None. FINDINGS: No evidence of an acute fracture of the pelvis or hips. No hip dislocation. No widening of the pubic symphysis or sacroiliac joints. No focal soft tissue abnormalities. Fusion hardware in the lower lumbar spine and lumbosacral junction. L5 laminectomy. Impression: No fracture or dislocation. Report Dictated on Electronically Signed By: Mary Nielsen MD Electronically Signed Date/Time: 03/06/2025 6:44 AM EDT CONSULTANTS: Nephrology, psychiatry, wound care RECOMMENDED NEXT STEPS: Transfer to SNF, follow-up with nephrology, psychiatry DISCHARGE MEDICATIONS: Medication List START taking these medications guaiFENesin 100 MG/5ML liquid Commonly known as: Robitussin Take 10 mL (200 mg) by mouth every 4 hours as needed for cough for up to 10 days. hydrOXYzine pamoate 25 MG capsule Commonly known as: Vistaril Take 1 capsule (25 mg) by mouth every 6 hours as needed for anxiety for up to 10 days. senna-docusate sodium 8.6-50 MG tablet Commonly known as: Senokot-S Take 2 tablets by mouth Daily as needed for constipation. CHANGE how you take these medications metoprolol tartrate 75 MG tablet Commonly known as: Lopressor Take 1 tablet (75 mg) by mouth 2 times daily. What changed: medication strength how much to take CONTINUE taking these medications acetaminophen 325 MG tablet Commonly known as: Tylenol bisacodyl 10 MG suppository Commonly known as: Dulcolax divalproex 250 MG 24 hr tablet Commonly known as: Depakote ER Take 1 tablet (250 mg) by mouth in the morning and 1 tablet (250 mg) at noon and 1 tablet (250 mg) in the evening. Take with meals. DULoxetine [address] capsule Commonly known as: Cymbalta Take 1 capsule (60 mg) by mouth daily. Do not crush or chew. ergocalciferol 1.25 MG (47959 UT) capsule Commonly known as: Vitamin D-2 IFEREX 150 PO lamoTRIgine 150 MG tablet Commonly known as: LaMICtal Take 1 tablet (150 mg) by mouth Nightly. MELATONIN PO miconazole 2 % powder Commonly known as: Micotin Apply topically 2 times daily. nystatin 101911 UNIT/GM powder Commonly known as: Mycostatin Apply topically 2 times daily. Apply to groin omeprazole [address] capsule Commonly known as: PriLOSEC Take 1 capsule (40 mg) by mouth every morning (before breakfast). Do not crush or chew. polyethylene glycol (PEG) 3350 17 g packet Commonly known as: Miralax Retacrit 59990 UNIT/ML injection Generic drug: epoetin molly-epbx risperiDONE 3 MG tablet Commonly known as: RisperDAL Take 1 tablet (3 mg) by mouth Nightly. rosuvastatin 10 MG tablet Commonly known as: Crestor TAKE 1 TABLET BY MOUTH DAILY traZODone 100 MG tablet Commonly known as: Desyrel Take 2 tablets (200 mg) by mouth Nightly. STOP taking these medications clonazePAM 0.5 MG tablet Commonly known as: KlonoPIN furosemide 40 MG tablet Commonly known as: Lasix hydrALAZINE 25 MG tablet Commonly known as: Apresoline ASK your doctor about these medications Butrans 20 MCG/HR Generic drug: buprenorphine levothyroxine 125 MCG tablet Commonly known as: Synthroid, Levoxyl Where to Get Your Medications Information about where to get these medications is not yet available Ask your nurse or doctor about these medications guaiFENesin 100 MG/5ML liquid hydrOXYzine pamoate 25 MG capsule metoprolol tartrate 75 MG tablet senna-docusate sodium 8.6-50 MG tablet DIET: Adult diet Regular; Low Sodium (2 gm) ACTIVITY: Up with assist COMPLEXITY OF FOLLOW UP: [] Moderate Complexity: follow up within 7-14 calendar days (93128) [] Severe Complexity: follow up within 7 calendar days (48231) FOLLOW UP TESTING, PENDING RESULTS OR REFERRALS AT TRANSITIONAL CARE VISIT: [] Yes [] No PENDING STUDIES: DISPOSITION: Skilled Facility FACILITY/HOME CARE AGENCY NAME: Follow up with Jorge Miller MD [address] [facility] [place] [phone] Schedule an appointment as soon as possible for a visit in 1 week(s) Fran Bowers MD [address] [phone] Schedule an appointment as soon as possible for a visit in 4 week(s) INSTRUCTIONS TO MA/SW: Please call patient on day after discharge (must document patient contacted within 2 business days of discharge). FOLLOW UP QUESTIONS FOR MA/SW: 1. Did you get medications filled and taking them as instructed from discharge? 2. Are you following your discharge instructions from your hospital stay? 3. Please confirm patient is scheduled for a follow up appointment within the above time frame. DISCHARGE TIME: 31 minutes SIGNED: Ashley Hayes MD 03/15/2025, 10:55 AM documented in this encounter [facility] 03-15-2025 Progress note Formatting of t his note might be different from the original. Care Management Progress Note Short Medical why still here: Nephrology following. Got auth for [facility], plan to send today. Will follow. Planned Discharge Disposition: Snf Facility Barriers/Today we still Wait: Facility pre-cert Length of Stay (Days): 8 GMLOS: 2.6 [facility] 03-14-2025 Progress note Formatting of t his note might be different from the original. [facility], [facility] approved. Secure chat Dr Hayes, says patient will be ready tmw. [facility] 03-14-2025 Progress note Formatting of t his note might be different from the original. Care Management Progress Note Short Medical why still here: Nephrology following. Creatinine 03/13, 2.55. Awaiting todays labs. Plan to go to [facility], [facility] start 03/11. Will follow. Planned Discharge Disposition: Snf Facility Barriers/Today we still Wait: Facility pre-cert, Clinical stability, Java Groovy Developer recommendations (comment) Length of Stay (Days): 7 GMLOS: 2.6 [facility] 03-13-2025 Progress note Formatting of t his note might be different from the original. Care Management Progress Note Short Medical why still here: Nephrology following. Na 132. Creatinine 2.55 was 2.23. Plan to to to [facility], auth started 03/11. Will follow. Planned Discharge Disposition: Snf Facility Barriers/Today we still Wait: Java Groovy Developer recommendations (comment), Clinical stability, Facility pre-cert Length of Stay (Days): 6 GMLOS: 2.6. T [facility] 03-12-2025 Progress note Formatting of t his note might be different from the original. Care Management Progress Note Short Medical why still here: Lasix PO. Na 132 from 03/11. Plan to go to [facility]. Auth started yesterday, 03/11. Will follow. Planned Discharge Disposition: Snf Facility Barriers/Today we still Wait: Clinical stability, Java Groovy Developer recommendations (comment) Length of Stay (Days): 5 GMLOS: 2.6 [facility] 03-11-2025 Progress note Formatting of t his note might be different from the original. 7000 created in HENS per [facility] request. Facility notified via [employer]. [facility] 03-11-2025 Progress note Formatting of t his note might be different from the original. Task ATHLETIC GEAR CUSTODIAN to send 7000 to [facility]. Secure chat Dr Tucker to complete IRASEMA. [facility] 03-11-2025 Nurse Note Wound Care consulted for Pressure Injury Prevention. Pt's Adam score= 15 on 03/10/2025 Pt in bed for assessment, turned for posterior assessment independently. Pt's pressure points assessed: Pt's Heels, Sacrum/Coccyx, Back, Elbows, Occiput and Ears are all blanching and intact. Pt with PureWick in place. Skin intact on Medial Thighs and Labia. Left Upper Thigh: Fragile, Non-blanchable erythema noted. Wound tissue Amagon and Red with peeling skin. Pt denies pain. Kayley-wound skin intact. Buttock Right: Amagon and Red Tissue noted. Pt denies pain. Kayley-wound skin intact. Placing Wound Care/Ostomy CHEMICAL INSPECTOR consult. Instructed pt on pressure injury prevention and importance of turning/postioning every 2 hrs while in bed and every 15 min while sitting in chair. Pt verbalized understanding however Pt did not demonstrate understanding and recommend reinforcement. Pt incontinent of large amount of urine. Brief in place, soiled. All bed linens and pt gown soiled. Fitted sheet changed, new glide sheet obtained and applied, brief removed, pads changed, incontinence care provided, bed bath with warm wipes performed, and barrier ointment applied ( see below for additional care given). Prevention Measures in place, including: Price sheet (replaced) with pillows/wedges (in place), Sacral foam (obtained and applied), Zinc/Moisture Barrier ointment (in place), Moisture absorbant pad (replaced), Waffle chair cushion (to be obtained for pt when up to chair). Physical Therapy present and agreed to Turn Pt to Right with wedge, replace PureWick off load heels with pillows, turn bed alarm on. Skin Care precaution order set in place. Dietitian consult in place. PT/OT consult in place. D/W welder fitter gas skin assessment, preventions, and interventions implemented. Will continue to follow pt. Please Voicera for any questions or concerns. HERNÁN Esquivel, RN [facility] 03-11-2025 Progress note Formatting of t his note might be different from the original. Secure chat from Dr Tucker to start auth. Told [facility] to start auth. [facility] 03-11-2025 Progress note Formatting of t his note might be different from the original. Care Management Progress Note Short Medical why still here: Nephrology following. Na 132. Lasix PO. Plan to go to [facility]. Secure chat Dr Tucker for anticipated DC date. Planned Discharge Disposition: Snf Facility Barriers/Today we still Wait: Clinical stability Length of Stay (Days): 4 GMLOS: 2.6 [facility] 03-08-2025 Consult note Associated Order (s): IP CONSULT TO PSYCHIATRY Department of Psychiatry Consult Service Resident Consult Note Reason for Consult: "bipolar" Requesting Physician: Tunde Tucker MD CHIEF COMPLAINT: Chief Complaint Patient presents with Weakness, Gen Per EMS "she lives in assisted living and is unable to take care of herself, she said she wants to go to [facility] which is a OK." [facility] was called for a lift assist, she slid from her chair to the floor. History obtained from: patient and past medical records HISTORY OF PRESENT ILLNESS: The patient is a 60 y.o.female with significant past medical history of HTN, HLD, hypothyroidism, CKD, Asperger syndrome, EDSON, and bipolar disorder who arrived by EMS from assisted living after falling off of her couch with another fall . Pt was subsequently admitted for hyponatremia and placement and psychiatry was consulted for management of her medications. Pt reports that she has been doing well on her current medication regimen at [facility]. She denies depressed or anxious mood, SI/HI/AH/VH, along with appetite change. She affirms some trouble falling asleep at night but notes she likes to stay up to watch tv and wake up for the 3 AM news. She takes naps throughout the day as well. She is concerned about her recent weakness/falling and feels social work is helping her to figure out discharge planning. She does feel hopeless/helpless at times regarding her physical health. She has no other acute concerns at this time. REVIEW OF SYSTEMS: Medical Review Of Systems: Neurological: generalized weakness Psychiatric Review Of Systems: Depressed mood:Denies Sleep changes:decreased Appetite changes:Denies Weight changes:Denies Energy changes:Denies Loss of interest/anhedonia:Denies Somatic symptoms:Denies Libido changes:Denies Anxiety/panic:Denies Guilty/hopeless:affirms hopelessness/helplessness Self-injurious/risky behavior:Denies Suicidal ideation:Denies Homicidal ideation:Denies Access to weapons:Denies PAST PSYCHIATRIC HISTORY: The patient is currently receiving care for the above psychiatric illness with Dr. Bowers. Past mental health outpatient care includes: previously seen by Dr. Jhon Verduzco Previous diagnoses: bipolar disorder, EDSON, schizoaffective disorder Past psychiatric medications include: [place], Klonopin, Effexor (hives) PAST MEDICAL/SURGICAL HISTORY: Past Medical History: Medical History[1] Past Surgical History: Surgical History[2] CURRENT MEDICATIONS/ALLERGIES: Current Medications[3] Allergies: Allergies[4] FAMILY HISTORY: Family History[5] SOCIAL HISTORY: Relationship status: states she has a boyfriend Living situation: Assisted Living Substance Use History: Nicotine:Denies Alcohol:Denies Recreational Drugs: Denies PSYCHIATRIC EXAMINATION: Vitals: Vitals: 03/08/25 1110 BP: 150/77 Pulse: 57 Resp: 16 Temp: 36.1 C (97 F) SpO2: 100% Physical Examination: Constitutional: well developed, well nourished, in no acute distress, and alert Musculoskeletal: gait Not examined Mental Status Examination: Appearance: moderately kept, appears stated age Attitude toward examiner: Cooperative, conversant, engaged, and with good eye contact. Behavior/motor: No psychomotor agitation or retardation, no tremor or other abnormal movements. Speech: Coherent and Regular rate, rhythm, volume and articulation Mood: "fine" Affect: Euthymic, full-range Thought process: Linear, goal directed Thought content: Within normal limits Thought perception: No perceptual abnormalities noted Suicidal ideation:Denies Homicidal ideation: Denies Cognition: mild cognitive impairment Memory: Within Normal Limits Insight: fair Judgment: fair DATA REVIEWED: Prior records have been reviewed in EMR Encounter Date: 03/06/25 ECG 12 lead Result Value Heart Rate 70 QRSD Interval 98 QT Interval 414 QTC Interval 446 P English 12 QRS English 16 T Wave English 14 CA Interval 166 Impression Sinus rhythm normal axis and intervals Anterior T wave abnormality seen in previous EKG has resolved. Electronically Signed On 03-07-2025 05:36:29 EDT by Hever Duncan Labs: Recent Results (from the past 24 hours) CBC auto differential Collection Time: 03/08/25 2:26 AM Result Value Ref Range Auto WBC 7.8 3.6 - 10.7 10*3/uL RBC 2.66 (L) 3.80 - 5.20 10*6/uL Hemoglobin 8.4 (L) 11.7 - 16.0 g/dL Hematocrit 25.4 (L) 35.0 - 47.0 % MCV 95.5 77.0 - 99.0 fL MCH 31.6 26.0 - 34.0 pg MCHC 33.1 30.5 - 36.0 % RDW 14.8 11.5 - 15.0 % Platelets 228 140 - 440 10*3/uL MPV 9.7 9.0 - 12.7 fL nRBC 0.0 0.0 - 2.0 /100 WBCs Neutrophils Relative 41.1 38.0 - 82.0 % Lymphocytes Relative 41.8 15.0 - 45.0 % Monocytes Relative 11.8 5.0 - 13.0 % Eosinophils Relative 4.6 0.0 - 6.0 % Basophils Relative 0.4 0.0 - 2.0 % Immature Grans % 0.3 0.0 - 2.0 % Neutrophils Absolute 3.2 1.8 - 7.5 10*3/uL Lymphocytes Absolute 3.3 1.0 - 4.3 10*3/uL Monocytes Absolute 0.9 0.0 - 0.9 10*3/uL Eosinophils Absolute 0.4 0.0 - 0.5 10*3/uL Basophils Absolute 0.0 0.0 - 0.2 10*3/uL Immature Grans Absolute 0.0 <0.1 10*3/uL Vitamin B12 Collection Time: 03/08/25 2:26 AM Result Value Ref Range VITAMIN B12 689 213 - 816 pg/mL Folate Collection Time: 03/08/25 2:26 AM Result Value Ref Range FOLATE RESULT 3.7 (L) 7.0 - 31.4 ng/mL Vitamin D Deficiency Screening (Vit D 25) Collection Time: 03/08/25 2:26 AM Result Value Ref Range VIT D 25-OH, TOTAL 45 See comment ng/mL TSH Collection Time: 03/08/25 2:26 AM Result Value Ref Range THYROID STIMULATING HORMONE 7.17 (H) 0.35 - 4.94 uIU/mL Basic metabolic panel Collection Time: 03/08/25 2:26 AM Result Value Ref Range SODIUM 125 (L) 136 - 145 mmol/L POTASSIUM 4.4 3.5 - 5.1 mmol/L CHLORIDE 98 98 - 107 mmol/L CARBON DIOXIDE 24 22 - 29 mmol/L UREA NITROGEN 17 9 - 23 mg/dL CREATININE 1.81 (H) 0.57 - 1.11 mg/dL GLUCOSE 85 74 - 100 mg/dL CALCIUM 8.3 (L) 8.4 - 10.2 mg/dL ANION GAP 3 3 - 13 mmol/L eGFR 32.1 (L) >60.0 mL/min/1.73m*2 Osmolality Collection Time: 03/08/25 10:17 AM Result Value Ref Range OSMOLALITY, SERUM 278 (L) 280 - 300 mOsm/kg Sodium Collection Time: 03/08/25 10:17 AM Result Value Ref Range SODIUM 129 (L) 136 - 145 mmol/L Sodium with creatinine, urine, random Collection Time: 03/08/25 10:58 AM Result Value Ref Range SODIUM, URINE 29 mmol/L CREATININE, URINE 18.3 (L) 47.0 - 110.0 mg/dL SODIUM, URINE, FRACTIONAL EXCRETION 2.2 SODIUM, URINE, TUBULAR REABSORPTION 1.0 Osmolality, urine Collection Time: 03/08/25 10:58 AM Result Value Ref Range OSMOLALITY, URINE 104 (L) 300 - 1,000 mOsm/kg PDMP records have been reviewed Risk of harm to self: Low Risk of harm to others: Low ASSESSMENT: 60 year old female with PMH bipolar disorder, Asperger's syndrome, and EDSON who presents in the setting of a fall with need for clarification of her medications. Patient was pleasant on exam and has been stable overall on her current regimen. Will confirm home medication list and withhold any changes at this time. DIAGNOSIS: Bipolar disorder Asperger's syndrome RECOMMENDATIONS: Pt does NOT require inpatient psychiatric admission. Defer to primary team for need for green slip/sitter. Medications: Continue Lamictal 150 mg HS Continue Risperdal 3 mg HS Continue Cymbalta DR 60 mg daily Continue Depakote 250 mg TID Decrease home Trazodone to 100 mg HS Labs: None Studies: None recommended at this time. Delirium precautions: Avoid sedating/anticholinergic medications, encourage sleep hygiene, minimize barriers to nutrition, optimize sensory input and access to assistive devices (dentures, glasses, etc) where indicated, encourage time up in chair as able, D/c [place], restraints, IV lines, as able and reserve agitation PRNs for instances where patient is danger to self/others/treatment. Recommendations shared with primary team. Follow up: [facility] will continue to follow peripherally. Pt seen and discussed with attending psychiatrist, Dr. Bowers, who agrees with above recommendations. [1] Past Medical History: Diagnosis Date Acid reflux Anxiety Arthritis Asperger syndrome Bipolar disorder (HCC) Chronic kidney disease stage 4 kidney failure Chronic pain Depression Edema of both legs GERD (gastroesophageal reflux disease) Hemorrhoids Hyperlipidemia Hypertension Hypothyroidism Iron (Fe) deficiency anemia Nephrogenic diabetes insipidus (HCC) Pain management Retention of urine, unspecified Sciatica SOB (shortness of breath) GRANT Type II or unspecified type diabetes mellitus without mention of complication, not stated as uncontrolled (HCC) Urinary incontinence nightly [2] Past Surgical History: Procedure Laterality Date 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 CHOLECYSTECTOMY COLON SURGERY c-diff COLONOSCOPY 03/28/2018 no polyps UPPER GASTROINTESTINAL ENDOSCOPY 03/28/2018 [3] Current Facility-Administered Medications Medication Dose Route Frequency Provider Last Rate Last Admin acetaminophen (Tylenol) tablet 650 mg 650 mg Oral q6h PRN Clara Wyatt DO Or acetaminophen (Tylenol) suppository 650 mg 650 mg Rectal q6h PRN Clara Wyatt DO divalproex (Depakote ER) 24 hr tablet 250 mg 250 mg Oral TID Clara Wyatt DO 250 mg at 03/08/25 1153 DULoxetine (Cymbalta) DR capsule 60 mg 60 mg Oral Daily Clara Wyatt DO 60 mg at 03/08/25 0915 furosemide (Lasix) tablet 20 mg 20 mg Oral Daily Eva Andre MD 20 mg at 03/08/25 115 hydrOXYzine pamoate (Vistaril) capsule 25 mg 25 mg Oral q6h PRN Paul Anderson DO 25 mg at 03/07/25 221 lamoTRIgine (LaMICtal) tablet 150 mg 150 mg Oral Nightly Clara Wyatt DO 150 mg at 03/07/252036 levothyroxine (Synthroid, Levoxyl) tablet 125 mcg 125 mcg Oral Daily Clara Wyatt DO 125 mcg at 03/08/25 0915 melatonin tablet 6 mg 6 mg Oral Nightly PRN Gloria Mario APRN - JEWELRY RACKER 6 mg at 03/07/252211 metoprolol tartrate (Lopressor) tablet 100 mg 100 mg Oral BID Clara Wyatt DO 100 mg at 03/08/25 0916 ondansetron ODT (Zofran-ODT) disintegrating tablet 4 mg 4 mg Oral q8h PRN Clara Wyatt DO Or ondansetron (Zofran) injection 4 mg 4 mg IntraVENous q6h PRN Clara Wyatt DO polyethylene glycol (PEG) 3350 (Miralax) packet 17 g 17 g Oral Daily PRN Clara Wyatt DO 17 g at 03/08/25 1043 risperiDONE (RisperDAL) tablet 3 mg 3 mg Oral Nightly Clara Wyatt DO 3 mg at 03/07/252038 rosuvastatin (Crestor) tablet 10 mg 10 mg Oral Daily Clara Wyatt, DO 10 mg at 03/08/25 0916 sodium chloride 0.9 % infusion 5-250 mL/hr IntraVENous PRN Clara Wyatt DO sodium chloride 0.9% (NS) flush 5-40 mL 5-40 mL IntraVENous q12h Clara Wyatt DO 10 mL at 03/08/25 0915 sodium chloride 0.9% (NS) flush 5-40 mL 5-40 mL IntraVENous PRN Clara Wyatt DO [4] Allergies Allergen Reactions Antihistamines, Chlorpheniramine-Type Benztropine Disorientation and loss of muscle control Diphenhydramine Disorientation Nsaids CKD Stage 3 Other Anticholinergics: cause disorientation and loss of muscle control Venlafaxine Hives [5] Family History Problem Relation Name Age of Onset Hypertension Mother Cancer Father Colon cancer Maternal Grandmother Cancer Brother Cosigned by Fran Bowers MD at 03/08/2025 4:23 PM EDT Associated attestation - Fran Bowers MD - 03/08/2025 4:23 PM EDT I saw and evaluated the patient, participating in the pal portions of the service. I reviewed the resident s note. I agree with the resident s findings and plan. Patient known to this property underwriter, complicated medical issues over the last 20 years which are further complicated by polypharmacy psychiatric medication regimen. She has required ECT in past as well. Does tend to do best with modest po fluid restriction and with firm limit setting on increased use of sedatives and pain medications. Will resume Rx as outlined. Discharge to ECF anticipated when medically appropriate. [facility]25 Consult note Associated Order (s): IP CONSULT TO PSYCHIATRY Department of Psychiatry Consult Service Resident Consult Note Reason for Consult: "bipolar" Requesting Physician: Tunde Tucker MD CHIEF COMPLAINT: Chief Complaint Patient presents with Weakness, Gen Per EMS "she lives in assisted living and is unable to take care of herself, she said she wants to go to [facility] which is a [facility]." [facility] was called for a lift assist, she slid from her chair to the floor. History obtained from: patient and past medical records HISTORY OF PRESENT ILLNESS: The patient is a 60 y.o.female with significant past medical history of HTN, HLD, hypothyroidism, CKD, Asperger syndrome, EDSON, and bipolar disorder who arrived by EMS from assisted living after falling off of her couch with another fall . Pt was subsequently admitted for hyponatremia and placement and psychiatry was consulted for management of her medications. Pt reports that she has been doing well on her current medication regimen at assisted living. She denies depressed or anxious mood, SI/HI/AH/VH, along with appetite change. She affirms some trouble falling asleep at night but notes she likes to stay up to watch tv and wake up for the 3 AM news. She takes naps throughout the day as well. She is concerned about her recent weakness/falling and feels social work is helping her to figure out discharge planning. She does feel hopeless/helpless at times regarding her physical health. She has no other acute concerns at this time. REVIEW OF SYSTEMS: Medical Review Of Systems: Neurological: generalized weakness Psychiatric Review Of Systems: Depressed mood:Denies Sleep changes:decreased Appetite changes:Denies Weight changes:Denies Energy changes:Denies Loss of interest/anhedonia:Denies Somatic symptoms:Denies Libido changes:Denies Anxiety/panic:Denies Guilty/hopeless:affirms hopelessness/helplessness Self-injurious/risky behavior:Denies Suicidal ideation:Denies Homicidal ideation:Denies Access to weapons:Denies PAST PSYCHIATRIC HISTORY: The patient is currently receiving care for the above psychiatric illness with Dr. Bowers. Past mental health outpatient care includes: previously seen by Dr. Jhon Verduzco Previous diagnoses: bipolar disorder, EDSON, schizoaffective disorder Past psychiatric medications include: [place], Klonopin, Effexor (hives) PAST MEDICAL/SURGICAL HISTORY: Past Medical History: Medical History[1] Past Surgical History: Surgical History[2] CURRENT MEDICATIONS/ALLERGIES: Current Medications[3] Allergies: Allergies[4] FAMILY HISTORY: Family History[5] SOCIAL HISTORY: Relationship status: states she has a boyfriend Living situation: Assisted Living Substance Use History: Nicotine:Denies Alcohol:Denies Recreational Drugs: Denies PSYCHIATRIC EXAMINATION: Vitals: Vitals: 03/08/25 1110 BP: 150/77 Pulse: 57 Resp: 16 Temp: 36.1 C (97 F) SpO2: 100% Physical Examination: Constitutional: well developed, well nourished, in no acute distress, and alert Musculoskeletal: gait Not examined Mental Status Examination: Appearance: moderately kept, appears stated age Attitude toward examiner: Cooperative, conversant, engaged, and with good eye contact. Behavior/motor: No psychomotor agitation or retardation, no tremor or other abnormal movements. Speech: Coherent and Regular rate, rhythm, volume and articulation Mood: "fine" Affect: Euthymic, full-range Thought process: Linear, goal directed Thought content: Within normal limits Thought perception: No perceptual abnormalities noted Suicidal ideation:Denies Homicidal ideation: Denies Cognition: mild cognitive impairment Memory: Within Normal Limits Insight: fair Judgment: fair DATA REVIEWED: Prior records have been reviewed in EMR Encounter Date: 03/06/25 ECG 12 lead Result Value Heart Rate 70 QRSD Interval 98 QT Interval 414 QTC Interval 446 P English 12 QRS English 16 T Wave English 14 CA Interval 166 Impression Sinus rhythm normal axis and intervals Anterior T wave abnormality seen in previous EKG has resolved. Electronically Signed On 03-07-2025 05:36:29 EDT by Hever Duncan Labs: Recent Results (from the past 24 hours) CBC auto differential Collection Time: 03/08/25 2:26 AM Result Value Ref Range Auto WBC 7.8 3.6 - 10.7 10*3/uL RBC 2.66 (L) 3.80 - 5.20 10*6/uL Hemoglobin 8.4 (L) 11.7 - 16.0 g/dL Hematocrit 25.4 (L) 35.0 - 47.0 % MCV 95.5 77.0 - 99.0 fL MCH 31.6 26.0 - 34.0 pg MCHC 33.1 30.5 - 36.0 % RDW 14.8 11.5 - 15.0 % Platelets 228 140 - 440 10*3/uL MPV 9.7 9.0 - 12.7 fL nRBC 0.0 0.0 - 2.0 /100 WBCs Neutrophils Relative 41.1 38.0 - 82.0 % Lymphocytes Relative 41.8 15.0 - 45.0 % Monocytes Relative 11.8 5.0 - 13.0 % Eosinophils Relative 4.6 0.0 - 6.0 % Basophils Relative 0.4 0.0 - 2.0 % Immature Grans % 0.3 0.0 - 2.0 % Neutrophils Absolute 3.2 1.8 - 7.5 10*3/uL Lymphocytes Absolute 3.3 1.0 - 4.3 10*3/uL Monocytes Absolute 0.9 0.0 - 0.9 10*3/uL Eosinophils Absolute 0.4 0.0 - 0.5 10*3/uL Basophils Absolute 0.0 0.0 - 0.2 10*3/uL Immature Grans Absolute 0.0 <0.1 10*3/uL Vitamin B12 Collection Time: 03/08/25 2:26 AM Result Value Ref Range VITAMIN B12 689 213 - 816 pg/mL Folate Collection Time: 03/08/25 2:26 AM Result Value Ref Range FOLATE RESULT 3.7 (L) 7.0 - 31.4 ng/mL Vitamin D Deficiency Screening (Vit D 25) Collection Time: 03/08/25 2:26 AM Result Value Ref Range VIT D 25-OH, TOTAL 45 See comment ng/mL TSH Collection Time: 03/08/25 2:26 AM Result Value Ref Range THYROID STIMULATING HORMONE 7.17 (H) 0.35 - 4.94 uIU/mL Basic metabolic panel Collection Time: 03/08/25 2:26 AM Result Value Ref Range SODIUM 125 (L) 136 - 145 mmol/L POTASSIUM 4.4 3.5 - 5.1 mmol/L CHLORIDE 98 98 - 107 mmol/L CARBON DIOXIDE 24 22 - 29 mmol/L UREA NITROGEN 17 9 - 23 mg/dL CREATININE 1.81 (H) 0.57 - 1.11 mg/dL GLUCOSE 85 74 - 100 mg/dL CALCIUM 8.3 (L) 8.4 - 10.2 mg/dL ANION GAP 3 3 - 13 mmol/L eGFR 32.1 (L) >60.0 mL/min/1.73m*2 Osmolality Collection Time: 03/08/25 10:17 AM Result Value Ref Range OSMOLALITY, SERUM 278 (L) 280 - 300 mOsm/kg Sodium Collection Time: 03/08/25 10:17 AM Result Value Ref Range SODIUM 129 (L) 136 - 145 mmol/L Sodium with creatinine, urine, random Collection Time: 03/08/25 10:58 AM Result Value Ref Range SODIUM, URINE 29 mmol/L CREATININE, URINE 18.3 (L) 47.0 - 110.0 mg/dL SODIUM, URINE, FRACTIONAL EXCRETION 2.2 SODIUM, URINE, TUBULAR REABSORPTION 1.0 Osmolality, urine Collection Time: 03/08/25 10:58 AM Result Value Ref Range OSMOLALITY, URINE 104 (L) 300 - 1,000 mOsm/kg PDMP records have been reviewed Risk of harm to self: Low Risk of harm to others: Low ASSESSMENT: 60 year old female with PMH bipolar disorder, Asperger's syndrome, and EDSON who presents in the setting of a fall with need for clarification of her medications. Patient was pleasant on exam and has been stable overall on her current regimen. Will confirm home medication list and withhold any changes at this time. DIAGNOSIS: Bipolar disorder Asperger's syndrome RECOMMENDATIONS: Pt does NOT require inpatient psychiatric admission. Defer to primary team for need for green slip/sitter. Medications: Continue Lamictal 150 mg HS Continue Risperdal 3 mg HS Continue Cymbalta DR 60 mg daily Continue Depakote 250 mg TID Decrease home Trazodone to 100 mg HS Labs: None Studies: None recommended at this time. Delirium precautions: Avoid sedating/anticholinergic medications, encourage sleep hygiene, minimize barriers to nutrition, optimize sensory input and access to assistive devices (dentures, glasses, etc) where indicated, encourage time up in chair as able, D/c [place], restraints, IV lines, as able and reserve agitation PRNs for instances where patient is danger to self/others/treatment. Recommendations shared with primary team. Follow up: [facility] will continue to follow peripherally. Pt seen and discussed with attending psychiatrist, Dr. Bowers, who agrees with above recommendations. [1] Past Medical History: Diagnosis Date Acid reflux Anxiety Arthritis Asperger syndrome Bipolar disorder (HCC) Chronic kidney disease stage 4 kidney failure Chronic pain Depression Edema of both legs GERD (gastroesophageal reflux disease) Hemorrhoids Hyperlipidemia Hypertension Hypothyroidism Iron (Fe) deficiency anemia Nephrogenic diabetes insipidus (HCC) Pain management Retention of urine, unspecified Sciatica SOB (shortness of breath) GRANT Type II or unspecified type diabetes mellitus without mention of complication, not stated as uncontrolled (HCC) Urinary incontinence nightly [2] Past Surgical History: Procedure Laterality Date 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 CHOLECYSTECTOMY COLON SURGERY c-diff COLONOSCOPY 03/28/2018 no polyps UPPER GASTROINTESTINAL ENDOSCOPY 03/28/2018 [3] Current Facility-Administered Medications Medication Dose Route Frequency Provider Last Rate Last Admin acetaminophen (Tylenol) tablet 650 mg 650 mg Oral q6h PRN Clara Wyatt DO Or acetaminophen (Tylenol) suppository 650 mg 650 mg Rectal q6h PRN Clara Wyatt DO divalproex (Depakote ER) 24 hr tablet 250 mg 250 mg Oral TID Clara Wyatt DO 250 mg at 03/08/25 1153 DULoxetine (Cymbalta) DR capsule 60 mg 60 mg Oral Daily Clara Wyatt DO 60 mg at 03/08/25 0915 furosemide (Lasix) tablet 20 mg 20 mg Oral Daily Eva Andre MD 20 mg at 03/08/25 1153 hydrOXYzine pamoate (Vistaril) capsule 25 mg 25 mg Oral q6h PRN Paul Anderson, DO 25 mg at 03/07/252211 lamoTRIgine (LaMICtal) tablet 150 mg 150 mg Oral Nightly Clara Wyatt DO 150 mg at 03/07/252036 levothyroxine (Synthroid, Levoxyl) tablet 125 mcg 125 mcg Oral Daily Clara Wyatt DO 125 mcg at 03/08/25 09 melatonin tablet 6 mg 6 mg Oral Nightly PRN VENTURA Matta CNP 6 mg at 03/07/252211 metoprolol tartrate (Lopressor) tablet 100 mg 100 mg Oral BID Clara Wyatt DO 100 mg at 03/08/25 09 ondansetron ODT (Zofran-ODT) disintegrating tablet 4 mg 4 mg Oral q8h PRN Clara Wyatt DO Or ondansetron (Zofran) injection 4 mg 4 mg IntraVENous q6h PRN Clara Wyatt DO polyethylene glycol (PEG) 3350 (Miralax) packet 17 g 17 g Oral Daily PRN Clara Wyatt DO 17 g at 03/08/25 104 risperiDONE (RisperDAL) tablet 3 mg 3 mg Oral Nightly Clara Wyatt, DO 3 mg at 03/07/252038 rosuvastatin (Crestor) tablet 10 mg 10 mg Oral Daily Clara Wyatt, DO 10 mg at 03/08/25 0916 sodium chloride 0.9 % infusion 5-250 mL/hr IntraVENous PRN Clara Wyatt DO sodium chloride 0.9% (NS) flush 5-40 mL 5-40 mL IntraVENous q12h Clara Wyatt DO 10 mL at 03/08/25 0915 sodium chloride 0.9% (NS) flush 5-40 mL 5-40 mL IntraVENous PRN Clara Wyatt DO [4] Allergies Allergen Reactions Antihistamines, Chlorpheniramine-Type Benztropine Disorientation and loss of muscle control Diphenhydramine Disorientation Nsaids CKD Stage 3 Other Anticholinergics: cause disorientation and loss of muscle control Venlafaxine Hives [5] Family History Problem Relation Name Age of Onset Hypertension Mother Cancer Father Colon cancer Maternal Grandmother Cancer Brother Cosigned by Fran Bowers MD at 03/08/2025 4:23 PM EDT Associated attestation - Fran Bowers MD - 03/08/2025 4:23 PM EDT I saw and evaluated the patient, participating in the pal portions of the service. I reviewed the resident s note. I agree with the resident s findings and plan. Patient known to this property underwriter, complicated medical issues over the last 20 years which are further complicated by polypharmacy psychiatric medication regimen. She has required ECT in past as well. Does tend to do best with modest po fluid restriction and with firm limit setting on increased use of sedatives and pain medications. Will resume Rx as outlined. Discharge to ECF anticipated when medically appropriate. Fran Bowers MD Images from the original note were not included. Nephrology Consult Note Consult date: 03/08/25 11:24 AM Patient: Jessy Mckeon Room number: [id number] A Date of Admit: 03/06/2025 LOS: 1 days Referring physician: Tunde Tucker MD ATTENDING ATTESTATION: Patient seen and examined with PGY-1 on 03/08/25. Agree with the assessment and plan as documented with additions and/or exceptions as noted below: Hyponatremia - chronic and near typical levels. Currently, this appears to be hypervolemic with complication of psychogenic polydipsia. Agree with fluid restriction. Add 2 gram sodium restriction and furosemide 20 mg daily. She has a complicated history with documented nephrogenic DI (past) and pseudohyponatremia (recent). She consistently has been able to produce a dilute urine, so she does not have SIADH (despite multiple medications that may cause it). If her serum osmolality improves to normal, will try to liberalize her fluid intake even if she remains hyponatremic Stage G4 CKD - serum creatinine currently better than typical baseline. Monitor for now Signed: Eva Andre MD Nephrology [facility] ([facility]) Pager: [phone] Office Office Reason for Consult Reason for consult: Hyponatremia. Chief complaint: fall and left leg pain. 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 UA (03/07) reveals protein 25, nitrites negative, RBCs/WBCs wnl, negative hyaline casts, leukocytes 25, urine clear and colorless. Upr/Cr 2.02, TSH 7.17, FeNa 2.2%, baseline serum Cr is 2.0-2.5, serum Cr admit 2.14, today serum Cr is down to 1.81. Baseline serum Na is high 120s-low 130s. The pt reports prior to admitting to ED (03/06), she was taking 2 gallons of water every day, with a cup of coffee and hot chocolate - clinical hx consistent with psychogenic polydipsia and urine studies (03/08) reveal urine osmoles 104, serum osmoles 278, and urine sodium 29. A chronic hyponatremia and CKDIII/IV pt, she presents to ED with acute (hypotonic hyponatremic) on chronic hyponatremia that is correcting as per serum Na trends. Renal Plan: 1. Hyponatremia (improving) - Serum Na is improving; admit 121 (03/06), today serum Na 129. - Monitor and trend serum Na q4hrs. - Recommend total FR 1.5L/day - Maintain I/Os. - Recommend lasix as needed. - If serum sodium overcorrects, consider D5W. - Serum Na correcting appropriately; no need for salt table at this time. Thank you for allowing us to participate in the care of this patient. Please call with any questions. Oleg Weems DO [facility] ([facility]) History of Present Illness A 60 y/o female with PMHx of stage 3/4 CKD, HTN, HLD, Bipolar disorder, nephrogenic diabetes insipidus (hx of chronic lithium use), who presents to ED via EMS from assisted living with chief complaint of fall and left leg pain. As per her ED course, she has fallen twice recently and reports to have chronic edema and arthritis in her legs. Upon presentation to ED, she denied feeling lightheaded or dizzy. She denies chest pain, sob, palpitations, or hitting her head when she fell. Her ED (03/06) vitals were T: 99, HR: 72, BP: 118/60. At the bedside today, she reports feeling dizzy when she stand and reports trouble walking and feeling weak. She states before coming to ED she was taking in 2 gallons of water a day. She takes a cup of coffee and a cup of hot chocolate every day. She denies any fever or chills. The pt denies all urinary symptoms, including dysuria, hematuria, or foamy urine. The pt reports myalgias, worse in in left leg. The pt reports swelling in her body. The pt reports she takes 3 meals a day and her appetite is good. The pt denies chest pain or sob. The pt's nurse received 20 mg PO lasix at bedside today. She denies any acute events overnight. Per the nurse, the patient produced 1550 mL urine yesterday (net -760 mL) and 1200 ml urine today (net -340 mL) and she is on PO diet with total fluid restriction 1.5 L per day. Past Medical History Medical History[1] Past Surgical History Surgical History[2] Family History Family History[3] Social History Social History[4] Medications Scheduled Meds:Scheduled Meds[5] Continuous Infusions:Continuous Meds[6] Allergies Allergies[7] Review of Systems All systems reviewed and neg except as above. Vital Signs Vitals: 03/08/25 0320 03/08/25 0639 03/08/25 0800 03/08/25 1110 BP: 124/58 138/73 150/77 BP Location: Left arm Right arm Left arm Patient Position: Lying Sitting Sitting Pulse: 60 64 57 Resp: 14 18 16 Temp: 36.2 C (97.2 F) (!) 35.9 C (96.7 F) 36.1 C (97 F) TempSrc: Temporal Temporal Temporal SpO2: 94% 97% 100% Weight: 247 lb (112 kg) Height: Wt Readings from Last 3 Encounters: 03/08/25 247 lb (112 kg) 01/08/25 258 lb 3.2 oz (117 kg) 12/29/24 250 lb (113 kg) Admit Wt: Weight: 240 lb (109 kg) Estimated body mass index is 43.75 kg/m as calculated from the following: Height as of this encounter: 5' 3" (1.6 m). Weight as of this encounter: 247 lb (112 kg). I/O last 3 completed shifts: In: 1290 (11.5 mL/kg) [P.O.:1290] Out: 1750 (15.6 mL/kg) [Urine:1750 (0.4 mL/kg/hr)] Weight: 112 kg Net IO Since Admission: -1,100 mL [03/08/25 1124] Physical Exam General: A&O x 3, NAD HEENT: Sclera clear, EOMI, MMM, Nose/ears/hearing grossly normal Neck: Supple, trachea midline, no mass, no TM Heart: RRR, no rub/heave Lungs: Clear bilaterally, unlabored Abd: Soft, (+) BS, non-tender Ext: legs edematous; pitting edema worse in LLE than RLE. Neuro: No tremor/myoclonus Skin: warm and dry, no rash [facility] LABS Labs reviewed. Recent Labs 03/06/25232903/08/25225 WBC 8.0 7.8 HGB 8.8* 8.4* HCT 25.3* 25.4* MCV 92.3 95.5 PLT 211 228 Recent Labs 03/06/250 03/07/25 1105 03/08/256 03/08/25 1017 NA 121* 128* 125* 129* K 4.3 4.1 4.4 -- CL 92* 99 98 -- CO2 23 20* 24 -- BUN 20 16 17 -- CREATININE 2.14* 1.88* 1.81* -- GLUCOSE 92 88 85 -- CALCIUM 8.7 8.5 8.3* -- ANIONGAP 6 9 3 -- ALBUMIN 3.0* -- -- -- Recent Labs 03/06/25 2330 ALT <6 AST 26 ALKPHOS 55 BILITOT 0.3 -TSH (03/08): elevated, 7.17. - Urine studies (03/08) - urine osmoles 104, serum osmoles 278, urine sodium 29. Diagnostic Studies - No new imaging (03/08/2025). [1] Past Medical History: Diagnosis Date Acid reflux Anxiety Arthritis Asperger syndrome Bipolar disorder (HCC) Chronic kidney disease stage 4 kidney failure Chronic pain Depression Edema of both legs GERD (gastroesophageal reflux disease) Hemorrhoids Hyperlipidemia Hypertension Hypothyroidism Iron (Fe) deficiency anemia Nephrogenic diabetes insipidus (HCC) Pain management Retention of urine, unspecified Sciatica SOB (shortness of breath) GRANT Type II or unspecified type diabetes mellitus without mention of complication, not stated as uncontrolled (HCC) Urinary incontinence nightly [2] Past Surgical History: Procedure Laterality Date 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 CHOLECYSTECTOMY COLON SURGERY c-diff COLONOSCOPY 03/28/2018 no polyps UPPER GASTROINTESTINAL ENDOSCOPY 03/28/2018 [3] Family History Problem Relation Name Age of Onset Hypertension Mother Cancer Father Colon cancer Maternal Grandmother Cancer Brother [4] Social History Socioeconomic History Marital status: Single Tobacco Use Smoking status: Former Smokeless tobacco: Never Vaping Use Vaping status: Never Used Substance and Sexual Activity Alcohol use: No Alcohol/week: 0.0 standard drinks of alcohol Drug use: No Sexual activity: Not Currently Social Drivers of Health Financial Resource Strain: Low Risk (12/30/2024) Overall Financial Resource Strain (CARDIA) Difficulty of Paying Living Expenses: Not hard at all Food Insecurity: No Food Insecurity (12/30/2024) Hunger Vital Sign Worried About Running Out of Food in the Last Year: Never true Ran Out of Food in the Last Year: Never true Transportation Needs: No Transportation Needs (12/30/2024) PRAPARE - Transportation Lack of Transportation (Medical): No Lack of Transportation (Non-Medical): No Physical Activity: Inactive (12/30/2024) Exercise Vital Sign Days of Exercise per Week: 0 days Minutes of Exercise per Session: 0 min Stress: Stress Concern Present (12/30/2024) [employer] [place] [employer] - Occupational Stress Questionnaire Feeling of Stress : To some extent Social Connections: Socially Isolated (12/30/2024) Social Connection and Isolation Panel [NHANES] Frequency of Communication with Friends and Family: More than three times a week Frequency of Social Gatherings with Friends and Family: More than three times a week Attends Cheondoism Services: Never Active Member of Clubs or Organizations: No Attends Club or Organization Meetings: Never Marital Status: Never Intimate Partner Violence: Not At Risk (03/07/2025) Humiliation, Afraid, Rape, and Kick questionnaire Fear of Current or Ex-Partner: No Emotionally Abused: No Physically Abused: No Sexually Abused: No Housing Stability: Low Risk (03/07/2025) Housing Stability Vital Sign Unable to Pay for Housing in the Last Year: No Number of Times Moved in the Last Year: 1 Homeless in the Last Year: No [5] divalproex, 250 mg, Oral, TID WC DULoxetine, 60 mg, Oral, Daily furosemide, 20 mg, Oral, Daily lamoTRIgine, 150 mg, Oral, Nightly levothyroxine, 125 mcg, Oral, Daily metoprolol tartrate, 100 mg, Oral, BID risperiDONE, 3 mg, Oral, Nightly rosuvastatin, 10 mg, Oral, Daily sodium chloride 0.9%, 5-40 mL, IntraVENous, q12h [6] [7] Allergies Allergen Reactions Antihistamines, Chlorpheniramine-Type Benztropine Disorientation and loss of muscle control Diphenhydramine Disorientation Nsaids CKD Stage 3 Other Anticholinergics: cause disorientation and loss of muscle control Venlafaxine Hives documented in this encounter [facility] 03-08-2025 Progress note Formatting of t his note might be different from the original. TCC informed SW that she received a call from someone at . SW called number back and it was Rn from [facility]- [phone]. Pt had been active with them and was wondering if pt needed HHC [place] SW updated RN that [place] [facility] [place] [facility] [place] ANTON updated TCC. [facility] 03-08-2025 Hospital Discharge instructions Pastora Garner RN - 03/08/2025 1:01 PM EDT Images from the original note were not included. Continuity of Care Form Patient Name: Jessy Mckeon : 1965 Admit date: 03/06/2025 Discharge date: 03/15/2025 Code Status Order: Full Code Advance Directives: N Admitting Physician: Clara Wyatt DO PCP: Edith Pierce MD Discharging Nurse: Pastora Garner Discharging Hospital Unit/Room#: W5-526/[id number] A Discharging Unit Phone Number: [phone] Emergency Contact: Extended Emergency Contact Information Primary Emergency Contact: Pita Jara [employer] Relation: Parent Preferred language: Northern Irish Mechanism Inspector needed? No Secondary Emergency Contact: Mamadou Jara [place] Relation: Father Past Surgical History: Past Surgical History: Procedure Laterality Date 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 CHOLECYSTECTOMY COLON SURGERY c-diff COLONOSCOPY 03/28/2018 no polyps UPPER GASTROINTESTINAL ENDOSCOPY 03/28/2018 Immunization History: Immunization History Administered Date(s) Administered Covid-19, Pfizer Bearden Top, Do Not Dilute, (Age 12 Y+), Im, L 09/22/2021, 02/03/2022 Influenza, Unspecified 07/04/2020 Influenza, injectable, quadrivalent 06/20/2023 Pfizer SARS-CoV-2 Vaccination 12/05/2020, 12/26/2020 Pneumococcal Conjugate PCV 13 07/17/2018 Pneumococcal Polysaccharide PPSV23 08/31/2019 Tdap 12/04/2018 Active Problems: Medical Problems Problem List * (Principal) Hyponatremia Urinary tract infection Urinary tract infection without hematuria, site unspecified Chronic renal disease, stage IV (HCC) Chronic kidney disease, stage 3b (HCC) Acute cystitis without hematuria Fluid overload Hypervolemia, unspecified hypervolemia type Lower extremity edema Fall, initial encounter Urge incontinence of urine Dyspnea Anxiety Schizoaffective disorder (CMS/HCC) ([facility]) Chest pain Iron (Fe) deficiency anemia GERD (gastroesophageal reflux disease) Depression Suicidal ideations Acute gastric ulcer without hemorrhage or perforation Hypothyroidism Overview Signed 05/27/2022 2:10 PM by Interface, Incoming Problems- [facility] Conversion Dr esposito Urinary incontinence Diverticulosis of large intestine without diverticulitis Chronic antral gastritis First degree hemorrhoids Nocturia Rotator cuff strain Osteoarthritis of patellofemoral joint Urge incontinence Urinary retention Overview Signed 05/27/2022 2:10 PM by Interface, Incoming Problems- [facility] Conversion Updating Deprecated Diagnoses Localized edema Morbid obesity with BMI of 45.0-49.9, adult ([facility]) Hypomagnesemia JOSE A (acute kidney injury) ([facility]) Chronic bilateral low back pain with bilateral sciatica Primary hypothyroidism Psychogenic polydipsia Pneumonia Hypertension Bipolar disorder ([facility]) Lung infiltrate on CT Chronic schizoaffective disorder ([facility]) Isolation/Infection: No active isolations No active infections Nurse Assessment: Last Vital Signs: BP 150/77 (BP Location: Left arm, Patient Position: Sitting) Pulse 57 Temp 36.1 C (97 F) (Temporal) Resp 16 Ht 1.6 m (5' 3") Wt 112 kg (247 lb) SpO2 100% BMI 43.75 kg/m Last documented pain score (0-10 scale): Last Weight: Wt Readings from Last 1 Encounters: 03/08/25 112 kg (247 lb) Mental Status: IRASEMA Patient Mental Status: oriented and alert IV Access: IRASEMA IV Access: None Nursing Mobility/ADLs: Walking Total assistance Transfer Total assistance Bathing Total assistance Dressing Minimal assistance Toileting Total assistance Feeding Independent Automation And Controls Manager Minimal assistance Med Delivery no Wound Care Documentation and Therapy: Wound/Incision 12/30/24 Other (comment) Buttock Midline;Right (Active) Number of days: 67 Wound/Incision 12/30/24 Other (comment) Buttock Left (Active) Number of days: 67 Wound/Incision 12/30/24 Pressure Injury Leg Left;Upper;Posterior (Active) Number of days: 67 Elimination: Continence: Bowel: no Bladder: no Urinary Catheter: None Colostomy/Ileostomy/Ileal Conduit: None Date of Last BM: 03/14 Intake/Output Summary (Last 24 hours) at 03/08/2025 1300 Last data filed at 03/08/2025 1219 Gross per 24 hour Intake 2650 ml Output 3750 ml Net -1100 ml I/O last 3 completed shifts: In: 1290 (11.5 mL/kg) [P.O.:1290] Out: 1750 (15.6 mL/kg) [Urine:1750 (0.4 mL/kg/hr)] Weight: 112 kg Safety Concerns: history of falls (last 30 days) and at risk for falls Impairments/Disabilities: Mental health conditions Nutrition Therapy: Current Nutrition Therapy: Oral diet: general Routes of Feeding: oral Liquids: no restrictions Daily Fluid Restriction: no Last Modified Barium Swallow with Video (Video Swallowing Test): not done Treatments at the Time of Hospital Discharge: Respiratory Treatments: No Oxygen Therapy: is not on home oxygen therapy. Ventilator: No ventilator support Rehab Therapies: physical therapy and occupational therapy Weight Bearing Status/Restrictions: no restriction Other Medical Equipment (for information only, NOT a DME order): ? Other Treatments: no Patient's personal belongings (please select all that are sent with patient): mona RODRIGUEZ SIGNATURE: MANAGEMENT/SOCIAL WORK SECTION Inpatient Status Date: 03/07/25 Discharging to Facility/ Agency Name: [facility] Address: [address] [place] [address] Fax: Dialysis Facility (if applicable) Name: Address: Dialysis Schedule: Phone: Fax: Clinical Rehab Specialist/Egg Breaker signature: ICIAN SECTION Name: Jessy Mckeon Prognosis: good Condition at Discharge: stable Rehab Potential (if transferring to Rehab): good Recommended Labs or Other Treatments After Discharge: CBC, CMP, F/U with Nephrology, Psychiatry The individual is being admitted to a nursing facility directly from an [facility] or a unit of a [facility] that is not operated by or licensed by [facility] under section 5119.14 or 5160-3-15.1 5 The individual requires the level of services provided by a nursing facility for the condition for which he or she was treated in the hospital and, Physician Certification: I certify the above information and transfer of Jessy Mckeon is necessary for the continuing treatment of the diagnosis listed and that she requires custodial facility for less than 30 days. Update Admission H&P: No change in H&P PHYSICIAN SIGNATURE: documented in this encounter [facility] 03-08-2025 Progress note Formatting of t his note might be different from the original. Accepted into [facility]. Patient is happy. [facility] 03-08-2025 Progress note Formatting of t his note might be different from the original. Pt from [facility] assisted living in [place]- [phone]. SW called [place] and spoke with with MELODY. Per DON- pt's baseline is min assist. Staff gave her her meds. Staff assisted with bathing, etc. Pt did not amb-per her choice. SW updated AL that [place] go [place] [facility] will follow and updated [place] on facility [place] T [facility] 03-08-2025 Consult note Formatting of th is note is different from the original. Images from the original note were not included. Nephrology Consult Note Consult date: 03/08/25 11:24 AM Patient: Jessy Mckeon Room number: [id number] A Date of Admit: 03/06/2025 LOS: 1 days Referring physician: Tunde Tucker MD ATTENDING ATTESTATION: Patient seen and examined with PGY-1 on 03/08/25. Agree with the assessment and plan as documented with additions and/or exceptions as noted below: Hyponatremia - chronic and near typical levels. Currently, this appears to be hypervolemic with complication of psychogenic polydipsia. Agree with fluid restriction. Add 2 gram sodium restriction and furosemide 20 mg daily. She has a complicated history with documented nephrogenic DI (past) and pseudohyponatremia (recent). She consistently has been able to produce a dilute urine, so she does not have SIADH (despite multiple medications that may cause it). If her serum osmolality improves to normal, will try to liberalize her fluid intake even if she remains hyponatremic Stage G4 CKD - serum creatinine currently better than typical baseline. Monitor for now Signed: Eva Andre MD Nephrology [facility] ([facility]) Pager: [phone] Office Office Reason for Consult Reason for consult: Hyponatremia. Chief complaint: fall and left leg pain. 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 UA (03/07) reveals protein 25, nitrites negative, RBCs/WBCs wnl, negative hyaline casts, leukocytes 25, urine clear and colorless. Upr/Cr 2.02, TSH 7.17, FeNa 2.2%, baseline serum Cr is 2.0-2.5, serum Cr admit 2.14, today serum Cr is down to 1.81. Baseline serum Na is high 120s-low 130s. The pt reports prior to admitting to ED (03/06), she was taking 2 gallons of water every day, with a cup of coffee and hot chocolate - clinical hx consistent with psychogenic polydipsia and urine studies (03/08) reveal urine osmoles 104, serum osmoles 278, and urine sodium 29. A chronic hyponatremia and CKDIII/IV pt, she presents to ED with acute (hypotonic hyponatremic) on chronic hyponatremia that is correcting as per serum Na trends. Renal Plan: 1. Hyponatremia (improving) - Serum Na is improving; admit 121 (03/06), today serum Na 129. - Monitor and trend serum Na q4hrs. - Recommend total FR 1.5L/day - Maintain I/Os. - Recommend lasix as needed. - If serum sodium overcorrects, consider D5W. - Serum Na correcting appropriately; no need for salt table at this time. Thank you for allowing us to participate in the care of this patient. Please call with any questions. Oleg Weems, [facility] ([facility]) History of Present Illness A 60 y/o female with PMHx of stage 3/4 CKD, HTN, HLD, Bipolar disorder, nephrogenic diabetes insipidus (hx of chronic lithium use), who presents to ED via EMS from assisted living with chief complaint of fall and left leg pain. As per her ED course, she has fallen twice recently and reports to have chronic edema and arthritis in her legs. Upon presentation to ED, she denied feeling lightheaded or dizzy. She denies chest pain, sob, palpitations, or hitting her head when she fell. Her ED (03/06) vitals were T: 99, HR: 72, BP: 118/60. At the bedside today, she reports feeling dizzy when she stand and reports trouble walking and feeling weak. She states before coming to ED she was taking in 2 gallons of water a day. She takes a cup of coffee and a cup of hot chocolate every day. She denies any fever or chills. The pt denies all urinary symptoms, including dysuria, hematuria, or foamy urine. The pt reports myalgias, worse in in left leg. The pt reports swelling in her body. The pt reports she takes 3 meals a day and her appetite is good. The pt denies chest pain or sob. The pt's nurse received 20 mg PO lasix at bedside today. She denies any acute events overnight. Per the nurse, the patient produced 1550 mL urine yesterday (net -760 mL) and 1200 ml urine today (net -340 mL) and she is on PO diet with total fluid restriction 1.5 L per day. Past Medical History Medical History[1] Past Surgical History Surgical History[2] Family History Family History[3] Social History Social History[4] Medications Scheduled Meds:Scheduled Meds[5] Continuous Infusions:Continuous Meds[6] Allergies Allergies[7] Review of Systems All systems reviewed and neg except as above. Vital Signs Vitals: 03/08/25 0320 03/08/25 0639 03/08/25 0800 03/08/25 1110 BP: 124/58 138/73 150/77 BP Location: Left arm Right arm Left arm Patient Position: Lying Sitting Sitting Pulse: 60 64 57 Resp: 14 18 16 Temp: 36.2 C (97.2 F) (!) 35.9 C (96.7 F) 36.1 C (97 F) TempSrc: Temporal Temporal Temporal SpO2: 94% 97% 100% Weight: 247 lb (112 kg) Height: Wt Readings from Last 3 Encounters: 03/08/25 247 lb (112 kg) 01/08/25 258 lb 3.2 oz (117 kg) 12/29/24 250 lb (113 kg) Admit Wt: Weight: 240 lb (109 kg) Estimated body mass index is 43.75 kg/m as calculated from the following: Height as of this encounter: 5' 3" (1.6 m). Weight as of this encounter: 247 lb (112 kg). I/O last 3 completed shifts: In: 1290 (11.5 mL/kg) [P.O.:1290] Out: 1750 (15.6 mL/kg) [Urine:1750 (0.4 mL/kg/hr)] Weight: 112 kg Net IO Since Admission: -1,100 mL [03/08/25 1124] Physical Exam General: A&O x 3, NAD HEENT: Sclera clear, EOMI, MMM, Nose/ears/hearing grossly normal Neck: Supple, trachea midline, no mass, no TM Heart: RRR, no rub/heave Lungs: Clear bilaterally, unlabored Abd: Soft, (+) BS, non-tender Ext: legs edematous; pitting edema worse in LLE than RLE. Neuro: No tremor/myoclonus Skin: warm and dry, no rash [facility] Labs reviewed. Recent Labs 03/06/25232903/08/25 022 WBC 8.0 7.8 HGB 8.8* 8.4* HCT 25.3* 25.4* MCV 92.3 95.5 PLT 211 228 Recent Labs 03/06/25232903/07/25 1105 03/08/25 0226 03/08/25 1017 NA 121* 128* 125* 129* K 4.3 4.1 4.4 -- CL 92* 99 98 -- CO2 23 20* 24 -- BUN 20 16 17 -- CREATININE 2.14* 1.88* 1.81* -- GLUCOSE 92 88 85 -- CALCIUM 8.7 8.5 8.3* -- ANIONGAP 6 9 3 -- ALBUMIN 3.0* -- -- -- Recent Labs 03/06/25 2330 ALT <6 AST 26 ALKPHOS 55 BILITOT 0.3 -TSH (03/08): elevated, 7.17. - Urine studies (03/08) - urine osmoles 104, serum osmoles 278, urine sodium 29. Diagnostic Studies - No new imaging (03/08/2025). [1] Past Medical History: Diagnosis Date Acid reflux Anxiety Arthritis Asperger syndrome Bipolar disorder (HCC) Chronic kidney disease stage 4 kidney failure Chronic pain Depression Edema of both legs GERD (gastroesophageal reflux disease) Hemorrhoids Hyperlipidemia Hypertension Hypothyroidism Iron (Fe) deficiency anemia Nephrogenic diabetes insipidus (HCC) Pain management Retention of urine, unspecified Sciatica SOB (shortness of breath) GRANT Type II or unspecified type diabetes mellitus without mention of complication, not stated as uncontrolled (HCC) Urinary incontinence nightly [2] Past Surgical History: Procedure Laterality Date 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 CHOLECYSTECTOMY COLON SURGERY c-diff COLONOSCOPY 03/28/2018 no polyps UPPER GASTROINTESTINAL ENDOSCOPY 03/28/2018 [3] Family History Problem Relation Name Age of Onset Hypertension Mother Cancer Father Colon cancer Maternal Grandmother Cancer Brother [4] Social History Socioeconomic History Marital status: Single Tobacco Use Smoking status: Former Smokeless tobacco: Never Vaping Use Vaping status: Never Used Substance and Sexual Activity Alcohol use: No Alcohol/week: 0.0 standard drinks of alcohol Drug use: No Sexual activity: Not Currently Social Drivers of Health Financial Resource Strain: Low Risk (12/30/2024) Overall Financial Resource Strain (CARDIA) Difficulty of Paying Living Expenses: Not hard at all Food Insecurity: No Food Insecurity (12/30/2024) Hunger Vital Sign Worried About Running Out of Food in the Last Year: Never true Ran Out of Food in the Last Year: Never true Transportation Needs: No Transportation Needs (12/30/2024) PRAPARE - Transportation Lack of Transportation (Medical): No Lack of Transportation (Non-Medical): No Physical Activity: Inactive (12/30/2024) Exercise Vital Sign Days of Exercise per Week: 0 days Minutes of Exercise per Session: 0 min Stress: Stress Concern Present (12/30/2024) [employer] - Occupational Stress Questionnaire Feeling of Stress : To some extent Social Connections: Socially Isolated (12/30/2024) Social Connection and Isolation Panel [NHANES] Frequency of Communication with Friends and Family: More than three times a week Frequency of Social Gatherings with Friends and Family: More than three times a week Attends Cheondoism Services: Never Active Member of Clubs or Organizations: No Attends Club or Organization Meetings: Never Marital Status: Never Intimate Partner Violence: Not At Risk (03/07/2025) Humiliation, Afraid, Rape, and Kick questionnaire Fear of Current or Ex-Partner: No Emotionally Abused: No Physically Abused: No Sexually Abused: No Housing Stability: Low Risk (03/07/2025) Housing Stability Vital Sign Unable to Pay for Housing in the Last Year: No Number of Times Moved in the Last Year: 1 Homeless in the Last Year: No [5] divalproex, 250 mg, Oral, TID WC DULoxetine, 60 mg, Oral, Daily furosemide, 20 mg, Oral, Daily lamoTRIgine, 150 mg, Oral, Nightly levothyroxine, 125 mcg, Oral, Daily metoprolol tartrate, 100 mg, Oral, BID risperiDONE, 3 mg, Oral, Nightly rosuvastatin, 10 mg, Oral, Daily sodium chloride 0.9%, 5-40 mL, IntraVENous, q12h [6] [7] Allergies Allergen Reactions Antihistamines, Chlorpheniramine-Type Benztropine Disorientation and loss of muscle control Diphenhydramine Disorientation Nsaids CKD Stage 3 Other Anticholinergics: cause disorientation and loss of muscle control Venlafaxine Hives [facility] 03-08-2025 Note Referral placed to [facility] via [facility] per TCC request. Await review and response regarding ability to accept. TCC notified. Electronically signed [facility] Progress note Formatting of t his note might be different from the original. Referral placed to - [facility] via [facility] per TCC request. Await review and response regarding ability to accept. TCC notified. [facility] 03-08-2025 Progress note Formatting of t his note might be different from the original. Care Management Progress Note Short Medical why still here: Na 125, was 128 and 121 on admission. PT/OT ordered. PT recommended SNF. CM in ER stated patient wanted to go to [facility]. Task ATHLETIC GEAR CUSTODIAN to make a referral to [facility]. Patient from [place]. SW aware. Planned Discharge Disposition: Snf Facility Barriers/Today we still Wait: Administering IV medications, Clinical stability Length of Stay (Days): 1 GMLOS: No GMLOS Documented [facility] 03-07-2025 Progress note Formatting of t his note might be different from the original. CM met with pt at bedside in the ED. CM saw that pt was at [facility] in January - This CM asked pt is she had an idea where she would want to dicharge to - would she want to gfo back to [facility] or select from a new list which I could print for her. Pt verbalized wanting to return to [facility]. Will need therapy evals. [facility] 03-07-2025 History and physical note Attending History and Physical Admit Date: 03/06/2025 PCP: Edith Pierce MD CHIEF COMPLAINT: Unable to care for self Reason for Admission: Unable to care for self, hyponatremia History Obtained From: patient HISTORY OF PRESENT ILLNESS: Jessy is a 60 y.o. female with past medical history below who presents with complaints of generalized weakness and an inability to care for self. Patient was just discharged about 1.5 months ago from here with similar presentation, was discharged to custodial facility. Patient states that she is not receiving a required amount of care for her, EMS was apparently called for a lift assist after she slid from a chair to the floor, and was requesting placement in a new facility. In the ED she was hemodynamically stable her only lab abnormality compared to baseline was her sodium was low at 121. Will admit for further evaluation and management. Past Medical History: Medical History[1] Past Surgical History: Surgical History[2] Social History: Social History Socioeconomic History Marital status: Single Spouse name: Not on file Number of children: Not on file Years of education: Not on file Highest education level: Not on file Occupational History Not on file Tobacco Use Smoking status: Former Smokeless tobacco: Never Vaping Use Vaping status: Never Used Substance and Sexual Activity Alcohol use: No Alcohol/week: 0.0 standard drinks of alcohol Drug use: No Sexual activity: Not Currently Other Topics Concern Not on file Social History Narrative Not on file Social Drivers of Health Financial Resource Strain: Low Risk (12/30/2024) Overall Financial Resource Strain (CARDIA) Difficulty of Paying Living Expenses: Not hard at all Food Insecurity: No Food Insecurity (12/30/2024) Hunger Vital Sign Worried About Running Out of Food in the Last Year: Never true Ran Out of Food in the Last Year: Never true Transportation Needs: No Transportation Needs (12/30/2024) PRAPARE - Transportation Lack of Transportation (Medical): No Lack of Transportation (Non-Medical): No Physical Activity: Inactive (12/30/2024) Exercise Vital Sign Days of Exercise per Week: 0 days Minutes of Exercise per Session: 0 min Stress: Stress Concern Present (12/30/2024) [employer] - Occupational Stress Questionnaire Feeling of Stress : To some extent Social Connections: Socially Isolated (12/30/2024) Social Connection and Isolation Panel [NHANES] Frequency of Communication with Friends and Family: More than three times a week Frequency of Social Gatherings with Friends and Family: More than three times a week Attends Cheondoism Services: Never Active Member of Clubs or Organizations: No Attends Club or Organization Meetings: Never Marital Status: Never Intimate Partner Violence: Not At Risk (12/30/2024) Humiliation, Afraid, Rape, and Kick questionnaire Fear of Current or Ex-Partner: No Emotionally Abused: No Physically Abused: No Sexually Abused: No Housing Stability: Low Risk (12/30/2024) Housing Stability Vital Sign Unable to Pay for Housing in the Last Year: No Number of Times Moved in the Last Year: 1 Homeless in the Last Year: No Family History: Family History[3] Medications Reconciliation: Medications were reviewed in chart and verified as accurate by review of records with family and/or extended care facility Allergies: Allergies[4] REVIEW OF SYSTEMS: 10 point ROS obtained, as per HPI, otherwise NEG Vitals: BP 114/64 Pulse 70 Temp 36.8 C (98.2 F) (Oral) Resp 16 Ht 5' 3" (1.6 m) Wt 240 lb (109 kg) SpO2 99% BMI 42.51 kg/m BMI Classification: Morbidly Obese (>40.0) Pulse Ox: SpO2 Av.6 % Min: 99 % Max: 100 % Supplemental O2: PHYSICAL EXAM: Physical Exam Vitals reviewed. Constitutional: General: She is not in acute distress. Appearance: Normal appearance. She is not ill-appearing. HENT: Head: Normocephalic and atraumatic. Right Ear: External ear normal. Left Ear: External ear normal. Nose: Nose normal. Mouth/Throat: Mouth: Mucous membranes are moist. Pharynx: Oropharynx is clear. Eyes: General: Right eye: No discharge. Left eye: No discharge. Pupils: Pupils are equal, round, and reactive to light. Cardiovascular: Rate and Rhythm: Normal rate. Pulses: Normal pulses. Pulmonary: Effort: Pulmonary effort is normal. No respiratory distress. Abdominal: General: Bowel sounds are normal. Palpations: Abdomen is soft. Musculoskeletal: General: No deformity. Normal range of motion. Cervical back: Normal range of motion and neck supple. No rigidity. Skin: General: Skin is warm and dry. Capillary Refill: Capillary refill takes less than 2 seconds. Neurological: General: No focal deficit present. Mental Status: She is alert. Psychiatric: Mood and Affect: Mood normal. Behavior: Behavior normal. DATA: CBC: Recent Labs 03/06/25 2330 WBC 8.0 RBC 2.74* HGB 8.8* HCT 25.3* MCV 92.3 RDW 14.2 PLT 211 BMP: Recent Labs 03/06/25 2330 NA 121* K 4.3 CL 92* CO2 23 BUN 20 CREATININE 2.14* GLUCOSE 92 CALCIUM 8.7 ANIONGAP 6 LIVER PROFILE: Recent Labs 03/06/25 2330 AST 26 ALT <6 BILITOT 0.3 ALKPHOS 55 PROT 6.2* PT/INR: No results for input(s): "PROTIME", "INR" in the last 72 hours. CARDIAC ENZYMES: No results for input(s): "TROPONINI" in the last 72 hours. Procalcitonin: No results found for: "PROCAL" Urine Culture: Results for orders placed or performed during the hospital encounter of 12/25/24 Urine culture Collection Time: 12/25/24 12:34 PM Specimen: Urine, Clean Catch Result Value Ref Range Urine Culture Normal urogenital karan present COVID-19 PCR: No results for input(s): "COVID19" in the last 72 hours. I reviewed: [x] laboratory results [x] radiographic results At the time of today's encounter. Pt was advised of the results. Data: (CAT3) Discussed with ED provider, Raymon MICHAEL, regarding patient's eval & mgmt thus far, and agree with the plan for hospitalization. (LOW: 2x CAT1 or independent historian MOD: 3x CAT1 or 1x CAT3 EXTENSIVE: 3x CAT1 and 1x CAT3) Assessment Discussed management with the ED provider and agree with hospitalization. Acute, acute on chronic, unstable/uncontrolled chronic problems/diagnoses: Recurrent falls Unable to care for self Hyponatremia Stable chronic problems affecting care, new non-acute diagnoses: Medical History[5] Plan As a result of the above findings & factors, the following mgmt was pursued: Recurrent falls Unable to care for self Apparently patient was at a custodial facility that was still not providing an adequate level of care as the patient continues to have recurrent falls and does not feel safe in her current environment where she came from Hyponatremia Likely due to hypovolemia, already given fluids in the ED Follow-up a.m. BMP for sodium level, avoid overcorrection - am labs, replace lytes prn - PT/OT/CM/SW - delirium precautions: increase activity - DVT prophylaxis: encourage ambulation Complexity: Acute illness or injury posing a threat to life or body function (HIGH). Risk: Admission to hospital-level care was considered or occurred (HIGH). Advance Directive: Prior Anticipated Discharge - Date -03/09/2025 - Location - Skilled Facility - Pending the following -placement Total time spent (which include face to face and non face to face encounters) : 75 minutes. Extended Emergency Contact Information Primary Emergency Contact: Pita Jara Mobile Relation: Parent Preferred language: Northern Irish Mechanism Inspector needed? 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 Chronic pain Depression Edema of both legs GERD (gastroesophageal reflux disease) Hemorrhoids Hyperlipidemia Hypertension Hypothyroidism Iron (Fe) deficiency anemia Nephrogenic diabetes insipidus (HCC) Pain management Retention of urine, unspecified Sciatica SOB (shortness of breath) GRANT Type II or unspecified type diabetes mellitus without mention of complication, not stated as uncontrolled (HCC) Urinary incontinence nightly [2] Past Surgical History: Procedure Laterality Date 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 CHOLECYSTECTOMY COLON SURGERY c-diff COLONOSCOPY 03/28/2018 no polyps UPPER GASTROINTESTINAL ENDOSCOPY 03/28/2018 [3] Family History Problem Relation Name Age of Onset Hypertension Mother Cancer Father Colon cancer Maternal Grandmother Cancer Brother [4] Allergies Allergen Reactions Antihistamines, Chlorpheniramine-Type Benztropine Disorientation and loss of muscle control Diphenhydramine Disorientation Nsaids CKD Stage 3 Other Anticholinergics: cause disorientation and loss of muscle control Venlafaxine Hives [5] Past Medical History: Diagnosis Date Acid reflux Anxiety Arthritis Asperger syndrome Bipolar disorder (HCC) Chronic kidney disease stage 4 kidney failure Chronic pain Depression Edema of both legs GERD (gastroesophageal reflux disease) Hemorrhoids Hyperlipidemia Hypertension Hypothyroidism Iron (Fe) deficiency anemia Nephrogenic diabetes insipidus (HCC) Pain management Retention of urine, unspecified Sciatica SOB (shortness of breath) GRANT Type II or unspecified type diabetes mellitus without mention of complication, not stated as uncontrolled (HCC) Urinary incontinence nightly [employer] Phone: 03-07-2025 Note [employer] [facility] 03-07-2025 History and physical note Attending History and Physical Admit Date: 03/06/2025 PCP: Edith Pierce MD CHIEF COMPLAINT: Unable to care for self Reason for Admission: Unable to care for self, hyponatremia History Obtained From: patient HISTORY OF PRESENT ILLNESS: Jessy is a 60 y.o. female with past medical history below who presents with complaints of generalized weakness and an inability to care for self. Patient was just discharged about 1.5 months ago from here with similar presentation, was discharged to custodial facility. Patient states that she is not receiving a required amount of care for her, EMS was apparently called for a lift assist after she slid from a chair to the floor, and was requesting placement in a new facility. In the ED she was hemodynamically stable her only lab abnormality compared to baseline was her sodium was low at 121. Will admit for further evaluation and management. Past Medical History: Medical History[1] Past Surgical History: Surgical History[2] Social History: Social History Socioeconomic History Marital status: Single Spouse name: Not on file Number of children: Not on file Years of education: Not on file Highest education level: Not on file Occupational History Not on file Tobacco Use Smoking status: Former Smokeless tobacco: Never Vaping Use Vaping status: Never Used Substance and Sexual Activity Alcohol use: No Alcohol/week: 0.0 standard drinks of alcohol Drug use: No Sexual activity: Not Currently Other Topics Concern Not on file Social History Narrative Not on file Social Drivers of Health Financial Resource Strain: Low Risk (12/30/2024) Overall Financial Resource Strain (CARDIA) Difficulty of Paying Living Expenses: Not hard at all Food Insecurity: No Food Insecurity (12/30/2024) Hunger Vital Sign Worried About Running Out of Food in the Last Year: Never true Ran Out of Food in the Last Year: Never true Transportation Needs: No Transportation Needs (12/30/2024) PRAPARE - Transportation Lack of Transportation (Medical): No Lack of Transportation (Non-Medical): No Physical Activity: Inactive (12/30/2024) Exercise Vital Sign Days of Exercise per Week: 0 days Minutes of Exercise per Session: 0 min Stress: Stress Concern Present (12/30/2024) [employer] - Occupational Stress Questionnaire Feeling of Stress : To some extent Social Connections: Socially Isolated (12/30/2024) Social Connection and Isolation Panel [NHANES] Frequency of Communication with Friends and Family: More than three times a week Frequency of Social Gatherings with Friends and Family: More than three times a week Attends Cheondoism Services: Never Active Member of Clubs or Organizations: No Attends Club or Organization Meetings: Never Marital Status: Never Intimate Partner Violence: Not At Risk (12/30/2024) Humiliation, Afraid, Rape, and Kick questionnaire Fear of Current or Ex-Partner: No Emotionally Abused: No Physically Abused: No Sexually Abused: No Housing Stability: Low Risk (12/30/2024) Housing Stability Vital Sign Unable to Pay for Housing in the Last Year: No Number of Times Moved in the Last Year: 1 Homeless in the Last Year: No Family History: Family History[3] Medications Reconciliation: Medications were reviewed in chart and verified as accurate by review of records with family and/or extended care facility Allergies: Allergies[4] REVIEW OF SYSTEMS: 10 point ROS obtained, as per HPI, otherwise NEG Vitals: BP 114/64 Pulse 70 Temp 36.8 C (98.2 F) (Oral) Resp 16 Ht 5' 3" (1.6 m) Wt 240 lb (109 kg) SpO2 99% BMI 42.51 kg/m BMI Classification: Morbidly Obese (>40.0) Pulse Ox: SpO2 Av.6 % Min: 99 % Max: 100 % Supplemental O2: PHYSICAL EXAM: Physical Exam Vitals reviewed. Constitutional: General: She is not in acute distress. Appearance: Normal appearance. She is not ill-appearing. HENT: Head: Normocephalic and atraumatic. Right Ear: External ear normal. Left Ear: External ear normal. Nose: Nose normal. Mouth/Throat: Mouth: Mucous membranes are moist. Pharynx: Oropharynx is clear. Eyes: General: Right eye: No discharge. Left eye: No discharge. Pupils: Pupils are equal, round, and reactive to light. Cardiovascular: Rate and Rhythm: Normal rate. Pulses: Normal pulses. Pulmonary: Effort: Pulmonary effort is normal. No respiratory distress. Abdominal: General: Bowel sounds are normal. Palpations: Abdomen is soft. Musculoskeletal: General: No deformity. Normal range of motion. Cervical back: Normal range of motion and neck supple. No rigidity. Skin: General: Skin is warm and dry. Capillary Refill: Capillary refill takes less than 2 seconds. Neurological: General: No focal deficit present. Mental Status: She is alert. Psychiatric: Mood and Affect: Mood normal. Behavior: Behavior normal. DATA: CBC: Recent Labs 03/06/25 2330 WBC 8.0 RBC 2.74* HGB 8.8* HCT 25.3* MCV 92.3 RDW 14.2 PLT 211 BMP: Recent Labs 03/06/25 2330 NA 121* K 4.3 CL 92* CO2 23 BUN 20 CREATININE 2.14* GLUCOSE 92 CALCIUM 8.7 ANIONGAP 6 LIVER PROFILE: Recent Labs 03/06/25 2330 AST 26 ALT <6 BILITOT 0.3 ALKPHOS 55 PROT 6.2* PT/INR: No results for input(s): "PROTIME", "INR" in the last 72 hours. CARDIAC ENZYMES: No results for input(s): "TROPONINI" in the last 72 hours. Procalcitonin: No results found for: "PROCAL" Urine Culture: Results for orders placed or performed during the hospital encounter of 12/25/24 Urine culture Collection Time: 12/25/24 12:34 PM Specimen: Urine, Clean Catch Result Value Ref Range Urine Culture Normal urogenital karan present COVID-19 PCR: No results for input(s): "COVID19" in the last 72 hours. I reviewed: [x] laboratory results [x] radiographic results At the time of today's encounter. Pt was advised of the results. Data: (CAT3) Discussed with ED provider, Raymon MICHAEL, regarding patient's eval & mgmt thus far, and agree with the plan for hospitalization. (LOW: 2x CAT1 or independent historian MOD: 3x CAT1 or 1x CAT3 EXTENSIVE: 3x CAT1 and 1x CAT3) Assessment Discussed management with the ED provider and agree with hospitalization. Acute, acute on chronic, unstable/uncontrolled chronic problems/diagnoses: Recurrent falls Unable to care for self Hyponatremia Stable chronic problems affecting care, new non-acute diagnoses: Medical History[5] Plan As a result of the above findings & factors, the following mgmt was pursued: Recurrent falls Unable to care for self Apparently patient was at a custodial facility that was still not providing an adequate level of care as the patient continues to have recurrent falls and does not feel safe in her current environment where she came from Hyponatremia Likely due to hypovolemia, already given fluids in the ED Follow-up a.m. BMP for sodium level, avoid overcorrection - am labs, replace lytes prn - PT/OT/CM/SW - delirium precautions: increase activity - DVT prophylaxis: encourage ambulation Complexity: Acute illness or injury posing a threat to life or body function (HIGH). Risk: Admission to hospital-level care was considered or occurred (HIGH). Advance Directive: Prior Anticipated Discharge - Date -03/09/2025 - Location - Skilled Facility - Pending the following -placement Total time spent (which include face to face and non face to face encounters) : 75 minutes. Extended Emergency Contact Information Primary Emergency Contact: Pita Jara Mobile Relation: Parent Preferred language: Northern Irish Mechanism Inspector needed? No Secondary Emergency Contact: Mamadou Jara Relation: Father Clara Wyatt DO Division of Hospital Medicine [facility] [place]1] Past Medical History: Diagnosis Date Acid reflux Anxiety Arthritis Asperger syndrome Bipolar disorder (HCC) Chronic kidney disease stage 4 kidney failure Chronic pain Depression Edema of both legs GERD (gastroesophageal reflux disease) Hemorrhoids Hyperlipidemia Hypertension Hypothyroidism Iron (Fe) deficiency anemia Nephrogenic diabetes insipidus (HCC) Pain management Retention of urine, unspecified Sciatica SOB (shortness of breath) GRANT Type II or unspecified type diabetes mellitus without mention of complication, not stated as uncontrolled (HCC) Urinary incontinence nightly [2] Past Surgical History: Procedure Laterality Date 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 CHOLECYSTECTOMY COLON SURGERY c-diff COLONOSCOPY 03/28/2018 no polyps UPPER GASTROINTESTINAL ENDOSCOPY 03/28/2018 [3] Family History Problem Relation Name Age of Onset Hypertension Mother Cancer Father Colon cancer Maternal Grandmother Cancer Brother [4] Allergies Allergen Reactions Antihistamines, Chlorpheniramine-Type Benztropine Disorientation and loss of muscle control Diphenhydramine Disorientation Nsaids CKD Stage 3 Other Anticholinergics: cause disorientation and loss of muscle control Venlafaxine Hives [5] Past Medical History: Diagnosis Date Acid reflux Anxiety Arthritis Asperger syndrome Bipolar disorder (HCC) Chronic kidney disease stage 4 kidney failure Chronic pain Depression Edema of both legs GERD (gastroesophageal reflux disease) Hemorrhoids Hyperlipidemia Hypertension Hypothyroidism Iron (Fe) deficiency anemia Nephrogenic diabetes insipidus (HCC) Pain management Retention of urine, unspecified Sciatica SOB (shortness of breath) GRANT Type II or unspecified type diabetes mellitus without mention of complication, not stated as uncontrolled (HCC) Urinary incontinence nightly documented in this encounter [facility] 03-06-2025 Emergency department Note Emergency Department Encounter [facility] EM[facility] DEPT Patient: Jessy Mckeon : 1965 Date of Evaluation: 03/06/2025 ED Supervising Physician: Sarah Marina DO I personally evaluated Jessy Mckeon and made/approved the management plan and take responsibility for the patient management. This will serve as my Supervisory note and shared attestation. I did perform a substantive portion of the visit including all aspects of the Medical Decision Making. I wore appropriate PPE for the entirety of this encounter. In brief, Jessy Mckeon is a 60 y.o. that presents to the emergency department with complaints of frequent falls and difficulty with her ADLs. Patient has a past medical history that includes hypertension, hyperlipidemia, hypothyroidism, CKD, Asperger's and bipolar disorder. The patient notes that she has been unable to do her daily activities and has had multiple falls over the past week. She notes that she has had 2 falls but has not had any injuries from these falls. The patient notes that she has also had significant pain throughout her body. She believes that she should be diagnosed with fibromyalgia but has not had a formal diagnoses. The patient notes she has been unable to ambulate and is concerned that she may need to go back to a skilled nursing for additional support to do her daily activities. Focused exam: Leg swelling bilaterally with tenderness throughout the bilateral lower extremities. Brief ED course/MDM: Labs are reviewed by myself which showed evidence of mild hyponatremia. For this reason the patient was initiated on maintenance fluids of saline. The patient also Had evidence of an elevated creatinine which is improved in comparison to her baseline. Chest x-ray showed no evidence of acute pulmonary abnormalities. Although lab baxter the patient does not have any acute medical reason to bring her into the hospital for admission, she is unable to complete her daily activities and is also unable to ambulate thus I do not believe that she would be appropriate to continue to try to take care of herself on her own without some level of assistance. Patient was updated on the plan and all of her questions answered at this time. Patient is stable prior to admission. Disposition: Plan to admit the patient. The patient's presenting condition and current diagnosis requires hospitalization for further workup and treatment. Using shared decision making with the patient, at this point the patient prefers hospitalization for further workup and treatment. Home medications were reviewed by myself and no changes will be made at this time, and will be deferred to the admitting service. All diagnostic, treatment, and disposition decisions were made by myself in conjunction with the BOYD. For all further details of the patient's emergency department visit, please see their documentation. (Comment: Please note this report has been produced using speech recognition software and may contain errors related to that system including errors in grammar, punctuation, and spelling, as well as words and phrases that may be inappropriate. If there are any questions or concerns please feel free to contact the dictating provider for clarification.) Jay Marina DO Acute Care [facility] Sarah Marina DO 03/07/25 0511 Emergency Department Encounter [facility] Patient: Jessy Mckeon : 1965 Date of Evaluation: 03/06/2025 ED BOYD Provider: Raymon Talbot PA-C EDcare was supervised by Dr. Marina who independently examined and evaluated the patient. Please see their attestation note for further details. Chief Complaint Chief Complaint Patient presents with Weakness, Gen Per EMS "she lives in assisted living and is unable to take care of herself, she said she [facility] to [facility] to [facility] which is a [facility]." [facility] EMS was called for a lift assist, she slid from her chair to the floor. DOUGLAS Jessy Mckeon is a 60 y.o. female with past medical history of hypertension, hyperlipidemia, hypothyroidism, CKD, Asperger's, bipolar disorder who presents to the emergency department for evaluation of increased weakness, frequent falls, difficulty with her ADLs. Patient lives in an assisted living facility, feels that she needs more help. Has been unable to do her daily activities, has had multiple falls over the last week, no significant injury. Has been unable to ambulate and is concerned that she may need to go back to her skilled nursing for additional support. She denies any pain. Limitations to history: None Outside historians: None Past History Medical History[1] Surgical History[2] Social History[3] Medications/Allergies Previous Medications ACETAMINOPHEN (TYLENOL) 325 MG TABLET Take by mouth. BISACODYL (DULCOLAX) 10 MG SUPPOSITORY Insert into the rectum. BUPRENORPHINE (BUTRANS) 20 MCG/HR Place 1 patch on the skin. CLONAZEPAM (KLONOPIN) 0.5 MG TABLET Take 1 tablet (0.5 mg) by mouth 2 times daily as needed for anxiety. DIVALPROEX (DEPAKOTE ER) 250 MG 24 HR TABLET Take 1 tablet (250 mg) by mouth in the morning and 1 tablet (250 mg) at noon and 1 tablet (250 mg) in the evening. Take with meals. DULOXETINE (CYMBALTA) [address] CAPSULE Take 1 capsule (60 mg) by mouth daily. Do not crush or chew. EPOETIN MOLLY-EPBX (RETACRIT) 90169 UNIT/ML INJECTION Inject 10,000 Units under the skin. ERGOCALCIFEROL (VITAMIN D-2) 1.25 MG (93347 UT) CAPSULE Take 1.25 mg by mouth 1 (one) time per week. FUROSEMIDE (LASIX) 40 MG TABLET Take 1 tablet (40 mg) by mouth daily. HYDRALAZINE (APRESOLINE) 25 MG TABLET Take 1 tablet (25 mg) by mouth 3 times daily. LAMOTRIGINE (LAMICTAL) 150 MG TABLET Take 1 tablet (150 mg) by mouth Nightly. LEVOTHYROXINE (SYNTHROID, LEVOXYL) 125 MCG TABLET Take 1 tablet (125 mcg) by mouth daily. Do not start before August 06, 2024. MELATONIN PO Take by mouth. METOPROLOL TARTRATE (LOPRESSOR) 100 MG TABLET Take 1 tablet (100 mg) by mouth 2 times daily. MICONAZOLE (MICOTIN) 2 % POWDER Apply topically 2 times daily. NYSTATIN (MYCOSTATIN) 119124 UNIT/GM POWDER Apply topically 2 times daily. Apply to groin OMEPRAZOLE (PRILOSEC) [address] CAPSULE Take 1 capsule (40 mg) by mouth every morning (before breakfast). Do not crush or chew. POLYETHYLENE GLYCOL, PEG, 3350 (MIRALAX) 17 G PACKET Take by mouth. POLYSACCHARIDE IRON COMPLEX (IFEREX 150 PO) Take by mouth. Daily [id number] RISPERIDONE (RISPERDAL) 3 MG TABLET Take 1 tablet (3 mg) by mouth Nightly. ROSUVASTATIN (CRESTOR) 10 MG TABLET TAKE 1 TABLET BY MOUTH DAILY TRAZODONE (DESYREL) 100 MG TABLET Take 2 tablets (200 mg) by mouth Nightly. Allergies[4] Physical Exam BP 114/64 Pulse 70 Temp 36.8 C (98.2 F) (Oral) Resp 16 Ht 1.6 m (5' 3") Wt 109 kg (240 lb) SpO2 99% BMI 42.51 kg/m Physical Exam GENERAL APPEARANCE: Awake and alert. Cooperative. HEENT: Normocephalic. Atraumatic. No trismus. Dry mucous membranes. NECK: Supple. Trachea midline. CARDIO: Normal rate and rhythm. Radial pulses symmetrical and palpable LUNGS: Respirations unlabored. CTAB. ABDOMEN: Soft. Non-distended. Non-tender throughout. MUSCULOSKELETAL: No acute deformities. Leg swelling bilaterally, symmetric. SKIN: Warm and dry. NEUROLOGICAL: No gross facial drooping. No obvious neurologic deficits. Moves all 4 extremities spontaneously. SCREENINGS D Labs: Results for orders placed or performed during the hospital encounter of 03/06/25 ECG 12 lead Collection Time: 03/06/25 11:06 PM Result Value Ref Range Heart Rate 70 bpm QRSD Interval 98 ms QT Interval 414 ms QTC Interval 446 ms P English 12 degrees QRS English 16 degrees T Wave English 14 degrees CA Interval 166 ms CBC auto differential Collection Time: 03/06/25 11:30 PM Result Value Ref Range Auto WBC 8.0 3.6 - 10.7 10*3/uL RBC 2.74 (L) 3.80 - 5.20 10*6/uL Hemoglobin 8.8 (L) 11.7 - 16.0 g/dL Hematocrit 25.3 (L) 35.0 - 47.0 % MCV 92.3 77.0 - 99.0 fL MCH 32.1 26.0 - 34.0 pg MCHC 34.8 30.5 - 36.0 % RDW 14.2 11.5 - 15.0 % Platelets 211 140 - 440 10*3/uL MPV 9.4 9.0 - 12.7 fL nRBC 0.0 0.0 - 2.0 /100 WBCs Neutrophils Relative 57.8 38.0 - 82.0 % Lymphocytes Relative 26.2 15.0 - 45.0 % Monocytes Relative 13.9 (H) 5.0 - 13.0 % Eosinophils Relative 1.4 0.0 - 6.0 % Basophils Relative 0.3 0.0 - 2.0 % Immature Grans % 0.4 0.0 - 2.0 % Neutrophils Absolute 4.6 1.8 - 7.5 10*3/uL Lymphocytes Absolute 2.1 1.0 - 4.3 10*3/uL Monocytes Absolute 1.1 (H) 0.0 - 0.9 10*3/uL Eosinophils Absolute 0.1 0.0 - 0.5 10*3/uL Basophils Absolute 0.0 0.0 - 0.2 10*3/uL Immature Grans Absolute 0.0 <0.1 10*3/uL Comprehensive metabolic panel Collection Time: 03/06/25 11:30 PM Result Value Ref Range SODIUM 121 (L) 136 - 145 mmol/L POTASSIUM 4.3 3.5 - 5.1 mmol/L CHLORIDE 92 (L) 98 - 107 mmol/L CARBON DIOXIDE 23 22 - 29 mmol/L ANION GAP 6 3 - 13 mmol/L UREA NITROGEN 20 9 - 23 mg/dL CREATININE 2.14 (H) 0.57 - 1.11 mg/dL GLUCOSE 92 74 - 100 mg/dL CALCIUM 8.7 8.4 - 10.2 mg/dL AST (SGOT) 26 <34 U/L ALT <6 <30 U/L ALKALINE PHOSPHATASE 55 40 - 150 U/L ALBUMIN 3.0 (L) 3.5 - 5.0 g/dL BILIRUBIN, TOTAL 0.3 <1.2 mg/dL TOTAL PROTEIN 6.2 (L) 6.4 - 8.3 g/dL eGFR 26.3 (L) >60.0 mL/min/1.73m*2 Urinalysis complete with reflex to Culture Collection Time: 03/07/25 1:36 AM Result Value Ref Range Color, Urine Colorless Lt. Yellow Clarity, Urine Clear Clear pH, Urine 6.5 5.0 - 8.0 pH Leukocytes, Urine 25 (A) Negative Devang/uL Nitrite, Urine Negative Negative Protein, Urine 20 (A) Negative mg/dL Glucose, Urine Normal Normal (<70) mg/dL Bilirubin, Urine Negative Negative mg/dL Ketones, Urine Negative Negative mg/dL Urobilinogen, Urine Normal Normal (0-1) mg/dL Blood, Urine Negative Negative mg/dL RBC, Urine 0-2 0 - 2 /HPF WBC, Urine 0-2 0 - 5 /HPF Squamous Epithelial, Urine 0-2 3 - 5 /HPF Bacteria, Urine Negative Negative /HPF Hyaline Casts, Urine Negative Negative /LPF SPECIFIC GRAVITY OF URINE (NUMERIC) 1.003 (L) 1.005 - 1.030 Radiographs: XR chest 1 view Final Result 1. No acute finding. Report Dictated on Electronically Signed By: Dinesh Chacon MD Electronically Signed Date/Time: 03/06/2025 11:12 PM EDT : EKG: All EKG's areinterpreted by the Emergency Department Physician in the absence of a power hair clipper. see their note for interpretation of EKG. EMERGENCY DEPARTMENT COURSE and DIFFERENTIAL DIAGNOSIS/MDM: External Records Review: Reviewed Care Everywhere Social Determinants of Health: . Jessy Mckeon is a 60 y.o. female who presented to the emergency department for evaluation of frequent falls, difficulty with her ADLs, feels like she needs more care, need to go back to skilled nursing for additional support. Not eating or drinking much. Differential diagnosis included electrolyte abnormality, weakness, failure to thrive. Workup showed no leukocytosis, stable hemoglobin of 8.8, no thrombocytopenia, hyponatremia 121, IV fluid maintenance started. Creatinine of 2.14 which is actually better compared to her baseline. No evidence of UTI. Chest x-ray is unremarkable. Reassessment: Pt resting comfortably, vital signs unremarkable Patient will need to be admitted for hyponatremia, increased weakness, failure to thrive, needing PT OT eval, social work evaluation, likely placement. Final Diagnosis: 1. Hyponatremia 2. Weakness Medications sodium chloride 0.9 % infusion (has no administration in time range) CRITICAL CARE TIME CONSULTS: None PROCEDURES: Unless otherwise noted below, none Procedures DISPOSITION/PLAN Admit 03/07/2025 01:13:51 AM PATIENT REFERRED TO: No follow-up provider specified. DISCHARGE MEDICATIONS: New Prescriptions No medications on file @[facility]([id number]:LAST:[id number])@ (Please note: Portions of this note were completed with a voice recognition program. Efforts were made to edit the dictations but occasionally words and phrases are mis-transcribed.) Form [id number] Raymon Talbot PA-C [employer] [facility] [1] Past Medical History: Diagnosis Date Acid reflux Anxiety Arthritis Asperger syndrome Bipolar disorder (HCC) Chronic kidney disease stage 4 kidney failure Chronic pain Depression Edema of both legs GERD (gastroesophageal reflux disease) Hemorrhoids Hyperlipidemia Hypertension Hypothyroidism Iron (Fe) deficiency anemia Nephrogenic diabetes insipidus (HCC) Pain management Retention of urine, unspecified Sciatica SOB (shortness of breath) GRANT Type II or unspecified type diabetes mellitus without mention of complication, not stated as uncontrolled (HCC) Urinary incontinence nightly [2] Past Surgical History: Procedure Laterality Date 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 CHOLECYSTECTOMY COLON SURGERY c-diff COLONOSCOPY 03/28/2018 no polyps UPPER GASTROINTESTINAL ENDOSCOPY 03/28/2018 [3] Social History Socioeconomic History Marital status: Single Tobacco Use Smoking status: Former Smokeless tobacco: Never Vaping Use Vaping status: Never Used Substance and Sexual Activity Alcohol use: No Alcohol/week: 0.0 standard drinks of alcohol Drug use: No Sexual activity: Not Currently Social Drivers of Health Financial Resource Strain: Low Risk (12/30/2024) Overall Financial Resource Strain (CARDIA) Difficulty of Paying Living Expenses: Not hard at all Food Insecurity: No Food Insecurity (12/30/2024) Hunger Vital Sign Worried About Running Out of Food in the Last Year: Never true Ran Out of Food in the Last Year: Never true Transportation Needs: No Transportation Needs (12/30/2024) PRAPARE - Transportation Lack of Transportation (Medical): No Lack of Transportation (Non-Medical): No Physical Activity: Inactive (12/30/2024) Exercise Vital Sign Days of Exercise per Week: 0 days Minutes of Exercise per Session: 0 min Stress: Stress Concern Present (12/30/2024) [employer] - Occupational Stress Questionnaire Feeling of Stress : To some extent Social Connections: Socially Isolated (12/30/2024) Social Connection and Isolation Panel [NHANES] Frequency of Communication with Friends and Family: More than three times a week Frequency of Social Gatherings with Friends and Family: More than three times a week Attends Cheondoism Services: Never Active Member of Clubs or Organizations: No Attends Club or Organization Meetings: Never Marital Status: Never Intimate Partner Violence: Not At Risk (12/30/2024) Humiliation, Afraid, Rape, and Kick questionnaire Fear of Current or Ex-Partner: No Emotionally Abused: No Physically Abused: No Sexually Abused: No Housing Stability: Low Risk (12/30/2024) Housing Stability Vital Sign Unable to Pay for Housing in the Last Year: No Number of Times Moved in the Last Year: 1 Homeless in the Last Year: No [4] Allergies Allergen Reactions Antihistamines, Chlorpheniramine-Type Benztropine Disorientation and loss of muscle control Diphenhydramine Disorientation Nsaids CKD Stage 3 Other Anticholinergics: cause disorientation and loss of muscle control Venlafaxine Hives Raymon Talbot PA-C 03/07/25 0229 Cosigned by Sarah Marina DO at 03/07/2025 5:12 AM EDT documented in this encounter [facility] 03-06-2025 Physician Emergency department Note Emergency Department Encounter [facility] EMERGENCY DEPT Patient: Jessy Mckeon : 1965 Date of Evaluation: 03/06/2025 ED Supervising Physician: Sarah Marina DO I personally evaluated Jessy Mckeon and made/approved the management plan and take responsibility for the patient management. This will serve as my Supervisory note and shared attestation. I did perform a substantive portion of the visit including all aspects of the Medical Decision Making. I wore appropriate PPE for the entirety of this encounter. In brief, Jessy Mckeon is a 60 y.o. that presents to the emergency department with complaints of frequent falls and difficulty with her ADLs. Patient has a past medical history that includes hypertension, hyperlipidemia, hypothyroidism, CKD, Asperger's and bipolar disorder. The patient notes that she has been unable to do her daily activities and has had multiple falls over the past week. She notes that she has had 2 falls but has not had any injuries from these falls. The patient notes that she has also had significant pain throughout her body. She believes that she should be diagnosed with fibromyalgia but has not had a formal diagnoses. The patient notes she has been unable to ambulate and is concerned that she may need to go back to a skilled nursing for additional support to do her daily activities. Focused exam: Leg swelling bilaterally with tenderness throughout the bilateral lower extremities. Brief ED course/MDM: Labs are reviewed by myself which showed evidence of mild hyponatremia. For this reason the patient was initiated on maintenance fluids of saline. The patient also Had evidence of an elevated creatinine which is improved in comparison to her baseline. Chest x-ray showed no evidence of acute pulmonary abnormalities. Although lab baxter the patient does not have any acute medical reason to bring her into the hospital for admission, she is unable to complete her daily activities and is also unable to ambulate thus I do not believe that she would be appropriate to continue to try to take care of herself on her own without some level of assistance. Patient was updated on the plan and all of her questions answered at this time. Patient is stable prior to admission. Disposition: Plan to admit the patient. The patient's presenting condition and current diagnosis requires hospitalization for further workup and treatment. Using shared decision making with the patient, at this point the patient prefers hospitalization for further workup and treatment. Home medications were reviewed by myself and no changes will be made at this time, and will be deferred to the admitting service. All diagnostic, treatment, and disposition decisions were made by myself in conjunction with the BOYD. For all further details of the patient's emergency department visit, please see their documentation. (Comment: Please note this report has been produced using speech recognition software and may contain errors related to that system including errors in grammar, punctuation, and spelling, as well as words and phrases that may be inappropriate. If there are any questions or concerns please feel free to contact the dictating provider for clarification.) Jay Marina DO [employer] Sarah Marina DO 03/07/25 0511 T [facility] 03-06-2025 Physician Emergency department Note Emergency Department Encounter [facility] EMERGENCY DEPT Patient: Jessy Mckeon : 1965 Date of Evaluation: 03/06/2025 ED BOYD Provider: FERNANDA Guerreroare was supervised by Dr. Marina who independently examined and evaluated the patient. Please see their attestation note for further details. Chief Complaint Chief Complaint Patient presents with Weakness, Gen Per EMS "she lives in assisted living and is unable to take care of herself, she said she wants to [facility] to [facility] which is a [facility]." Fall EMS was called for a lift assist, she slid from her chair to the floor. BAKARI Mckeon is a 60 y.o. female with past medical history of hypertension, hyperlipidemia, hypothyroidism, CKD, Asperger's, bipolar disorder who presents to the emergency department for evaluation of increased weakness, frequent falls, difficulty with her ADLs. Patient lives in an assisted living facility, feels that she needs more help. Has been unable to do her daily activities, has had multiple falls over the last week, no significant injury. Has been unable to ambulate and is concerned that she may need to go back to her skilled nursing for additional support. She denies any pain. Limitations to history: None Outside historians: None Past History Medical History[1] Surgical History[2] Social History[3] Medications/Allergies Previous Medications ACETAMINOPHEN (TYLENOL) 325 MG TABLET Take by mouth. BISACODYL (DULCOLAX) 10 MG SUPPOSITORY Insert into the rectum. BUPRENORPHINE (BUTRANS) 20 MCG/HR Place 1 patch on the skin. CLONAZEPAM (KLONOPIN) 0.5 MG TABLET Take 1 tablet (0.5 mg) by mouth 2 times daily as needed for anxiety. DIVALPROEX (DEPAKOTE ER) 250 MG 24 HR TABLET Take 1 tablet (250 mg) by mouth in the morning and 1 tablet (250 mg) at noon and 1 tablet (250 mg) in the evening. Take with meals. DULOXETINE (CYMBALTA) [address] CAPSULE Take 1 capsule (60 mg) by mouth daily. Do not crush or chew. EPOETIN MOLLY-EPBX (RETACRIT) 04973 UNIT/ML INJECTION Inject 10,000 Units under the skin. ERGOCALCIFEROL (VITAMIN D-2) 1.25 MG (84023 UT) CAPSULE Take 1.25 mg by mouth 1 (one) time per week. FUROSEMIDE (LASIX) 40 MG TABLET Take 1 tablet (40 mg) by mouth daily. HYDRALAZINE (APRESOLINE) 25 MG TABLET Take 1 tablet (25 mg) by mouth 3 times daily. LAMOTRIGINE (LAMICTAL) 150 MG TABLET Take 1 tablet (150 mg) by mouth Nightly. LEVOTHYROXINE (SYNTHROID, LEVOXYL) 125 MCG TABLET Take 1 tablet (125 mcg) by mouth daily. Do not start before August 06, 2024. MELATONIN PO Take by mouth. METOPROLOL TARTRATE (LOPRESSOR) 100 MG TABLET Take 1 tablet (100 mg) by mouth 2 times daily. MICONAZOLE (MICOTIN) 2 % POWDER Apply topically 2 times daily. NYSTATIN (MYCOSTATIN) 398693 UNIT/GM POWDER Apply topically 2 times daily. Apply to groin OMEPRAZOLE (PRILOSEC) [address] CAPSULE Take 1 capsule (40 mg) by mouth every morning (before breakfast). Do not crush or chew. POLYETHYLENE GLYCOL, PEG, 3350 (MIRALAX) 17 G PACKET Take by mouth. POLYSACCHARIDE IRON COMPLEX (IFEREX 150 PO) Take by mouth. Daily Frf-Hpf-Velacd RISPERIDONE (RISPERDAL) 3 MG TABLET Take 1 tablet (3 mg) by mouth Nightly. ROSUVASTATIN (CRESTOR) 10 MG TABLET TAKE 1 TABLET BY MOUTH DAILY TRAZODONE (DESYREL) 100 MG TABLET Take 2 tablets (200 mg) by mouth Nightly. Allergies[4] Physical Exam BP 114/64 Pulse 70 Temp 36.8 C (98.2 F) (Oral) Resp 16 Ht 1.6 m (5' 3") Wt 109 kg (240 lb) SpO2 99% BMI 42.51 kg/m Physical Exam GENERAL APPEARANCE: Awake and alert. Cooperative. HEENT: Normocephalic. Atraumatic. No trismus. Dry mucous membranes. NECK: Supple. Trachea midline. CARDIO: Normal rate and rhythm. Radial pulses symmetrical and palpable LUNGS: Respirations unlabored. CTAB. ABDOMEN: Soft. Non-distended. Non-tender throughout. MUSCULOSKELETAL: No acute deformities. Leg swelling bilaterally, symmetric. SKIN: Warm and dry. NEUROLOGICAL: No gross facial drooping. No obvious neurologic deficits. Moves all 4 extremities spontaneously. SCREENINGS D Labs: Results for orders placed or performed during the hospital encounter of 03/06/25 ECG 12 lead Collection Time: 03/06/25 11:06 PM Result Value Ref Range Heart Rate 70 bpm QRSD Interval 98 ms QT Interval 414 ms QTC Interval 446 ms P English 12 degrees QRS English 16 degrees T Wave English 14 degrees CA Interval 166 ms CBC auto differential Collection Time: 03/06/25 11:30 PM Result Value Ref Range Auto WBC 8.0 3.6 - 10.7 10*3/uL RBC 2.74 (L) 3.80 - 5.20 10*6/uL Hemoglobin 8.8 (L) 11.7 - 16.0 g/dL Hematocrit 25.3 (L) 35.0 - 47.0 % MCV 92.3 77.0 - 99.0 fL MCH 32.1 26.0 - 34.0 pg MCHC 34.8 30.5 - 36.0 % RDW 14.2 11.5 - 15.0 % Platelets 211 140 - 440 10*3/uL MPV 9.4 9.0 - 12.7 fL nRBC 0.0 0.0 - 2.0 /100 WBCs Neutrophils Relative 57.8 38.0 - 82.0 % Lymphocytes Relative 26.2 15.0 - 45.0 % Monocytes Relative 13.9 (H) 5.0 - 13.0 % Eosinophils Relative 1.4 0.0 - 6.0 % Basophils Relative 0.3 0.0 - 2.0 % Immature Grans % 0.4 0.0 - 2.0 % Neutrophils Absolute 4.6 1.8 - 7.5 10*3/uL Lymphocytes Absolute 2.1 1.0 - 4.3 10*3/uL Monocytes Absolute 1.1 (H) 0.0 - 0.9 10*3/uL Eosinophils Absolute 0.1 0.0 - 0.5 10*3/uL Basophils Absolute 0.0 0.0 - 0.2 10*3/uL Immature Grans Absolute 0.0 <0.1 10*3/uL Comprehensive metabolic panel Collection Time: 03/06/25 11:30 PM Result Value Ref Range SODIUM 121 (L) 136 - 145 mmol/L POTASSIUM 4.3 3.5 - 5.1 mmol/L CHLORIDE 92 (L) 98 - 107 mmol/L CARBON DIOXIDE 23 22 - 29 mmol/L ANION GAP 6 3 - 13 mmol/L UREA NITROGEN 20 9 - 23 mg/dL CREATININE 2.14 (H) 0.57 - 1.11 mg/dL GLUCOSE 92 74 - 100 mg/dL CALCIUM 8.7 8.4 - 10.2 mg/dL AST (SGOT) 26 <34 U/L ALT <6 <30 U/L ALKALINE PHOSPHATASE 55 40 - 150 U/L ALBUMIN 3.0 (L) 3.5 - 5.0 g/dL BILIRUBIN, TOTAL 0.3 <1.2 mg/dL TOTAL PROTEIN 6.2 (L) 6.4 - 8.3 g/dL eGFR 26.3 (L) >60.0 mL/min/1.73m*2 Urinalysis complete with reflex to Culture Collection Time: 03/07/25 1:36 AM Result Value Ref Range Color, Urine Colorless Lt. Yellow Clarity, Urine Clear Clear pH, Urine 6.5 5.0 - 8.0 pH Leukocytes, Urine 25 (A) Negative Devang/uL Nitrite, Urine Negative Negative Protein, Urine 20 (A) Negative mg/dL Glucose, Urine Normal Normal (<70) mg/dL Bilirubin, Urine Negative Negative mg/dL Ketones, Urine Negative Negative mg/dL Urobilinogen, Urine Normal Normal (0-1) mg/dL Blood, Urine Negative Negative mg/dL RBC, Urine 0-2 0 - 2 /HPF WBC, Urine 0-2 0 - 5 /HPF Squamous Epithelial, Urine 0-2 3 - 5 /HPF Bacteria, Urine Negative Negative /HPF Hyaline Casts, Urine Negative Negative /LPF SPECIFIC GRAVITY OF URINE (NUMERIC) 1.003 (L) 1.005 - 1.030 Radiographs: XR chest 1 view Final Result 1. No acute finding. Report Dictated on Electronically Signed By: Dinesh Chacon MD Electronically Signed Date/Time: 03/06/2025 11:12 PM EDT : EKG: All EKG's areinterpreted by the Emergency Department Physician in the absence of a power hair clipper. see their note for interpretation of EKG. EMERGENCY DEPARTMENT COURSE and DIFFERENTIAL DIAGNOSIS/MDM: External Records Review: Reviewed Care Everywhere Social Determinants of Health: . Jessy Mckeon is a 60 y.o. female who presented to the emergency department for evaluation of frequent falls, difficulty with her ADLs, feels like she needs more care, need to go back to skilled nursing for additional support. Not eating or drinking much. Differential diagnosis included electrolyte abnormality, weakness, failure to thrive. Workup showed no leukocytosis, stable hemoglobin of 8.8, no thrombocytopenia, hyponatremia 121, IV fluid maintenance started. Creatinine of 2.14 which is actually better compared to her baseline. No evidence of UTI. Chest x-ray is unremarkable. Reassessment: Pt resting comfortably, vital signs unremarkable Patient will need to be admitted for hyponatremia, increased weakness, failure to thrive, needing PT OT eval, social work evaluation, likely placement. Final Diagnosis: 1. Hyponatremia 2. Weakness Medications sodium chloride 0.9 % infusion (has no administration in time range) CRITICAL CARE TIME CONSULTS: None PROCEDURES: Unless otherwise noted below, none Procedures DISPOSITION/PLAN Admit 03/07/2025 01:13:51 AM PATIENT REFERRED TO: No follow-up provider specified. DISCHARGE MEDICATIONS: New Prescriptions No medications on file @[facility]([id number]:LAST:1)@ (Please note: Portions of this note were completed with a voice recognition program. Efforts were made to edit the dictations but occasionally words and phrases are mis-transcribed.) Form [id number] Raymon Talbot PA-C [facility] [1] Past Medical History: Diagnosis Date Acid reflux Anxiety Arthritis Asperger syndrome Bipolar disorder (HCC) Chronic kidney disease stage 4 kidney failure Chronic pain Depression Edema of both legs GERD (gastroesophageal reflux disease) Hemorrhoids Hyperlipidemia Hypertension Hypothyroidism Iron (Fe) deficiency anemia Nephrogenic diabetes insipidus (HCC) Pain management Retention of urine, unspecified Sciatica SOB (shortness of breath) GRANT Type II or unspecified type diabetes mellitus without mention of complication, not stated as uncontrolled (HCC) Urinary incontinence nightly [2] Past Surgical History: Procedure Laterality Date 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 CHOLECYSTECTOMY COLON SURGERY c-diff COLONOSCOPY 03/28/2018 no polyps UPPER GASTROINTESTINAL ENDOSCOPY 03/28/2018 [3] Social History Socioeconomic History Marital status: Single Tobacco Use Smoking status: Former Smokeless tobacco: Never Vaping Use Vaping status: Never Used Substance and Sexual Activity Alcohol use: No Alcohol/week: 0.0 standard drinks of alcohol Drug use: No Sexual activity: Not Currently Social Drivers of Health Financial Resource Strain: Low Risk (12/30/2024) Overall Financial Resource Strain (CARDIA) Difficulty of Paying Living Expenses: Not hard at all Food Insecurity: No Food Insecurity (12/30/2024) Hunger Vital Sign Worried About Running Out of Food in the Last Year: Never true Ran Out of Food in the Last Year: Never true Transportation Needs: No Transportation Needs (12/30/2024) PRAPARE - Transportation Lack of Transportation (Medical): No Lack of Transportation (Non-Medical): No Physical Activity: Inactive (12/30/2024) Exercise Vital Sign Days of Exercise per Week: 0 days Minutes of Exercise per Session: 0 min Stress: Stress Concern Present (12/30/2024) [employer] - Occupational Stress Questionnaire Feeling of Stress : To some extent Social Connections: Socially Isolated (12/30/2024) Social Connection and Isolation Panel [NHANES] Frequency of Communication with Friends and Family: More than three times a week Frequency of Social Gatherings with Friends and Family: More than three times a week Attends Cheondoism Services: Never Active Member of Clubs or Organizations: No Attends Club or Organization Meetings: Never Marital Status: Never Intimate Partner Violence: Not At Risk (12/30/2024) Humiliation, Afraid, Rape, and Kick questionnaire Fear of Current or Ex-Partner: No Emotionally Abused: No Physically Abused: No Sexually Abused: No Housing Stability: Low Risk (12/30/2024) Housing Stability Vital Sign Unable to Pay for Housing in the Last Year: No Number of Times Moved in the Last Year: 1 Homeless in the Last Year: No [4] Allergies Allergen Reactions Antihistamines, Chlorpheniramine-Type Benztropine Disorientation and loss of muscle control Diphenhydramine Disorientation Nsaids CKD Stage 3 Other Anticholinergics: cause disorientation and loss of muscle control Venlafaxine Hives Raymon Talbot PA-C 03/07/25 0229 Cosigned by Sarah Marina DO at 03/07/2025 5:12 AM EDT [facility] 03-06-2025 Emergency department Note Called [facility] S[facility]chez as they have not arrived for 0900 ETA. Dispatch states they will be here in 10 minutes. [facility] 03-06-2025 Emergency department Note Called [facility] S[facility]chez as they have not arrived for 0900 ETA. Dispatch states they will be here in 10 minutes. Upon arrival pt began to report that she was anxious and needed meds for anxiety "like klonopin." EMERGENCY DEPARTMENT ENCOUNTER Pt Name: Jessy Mckeon Birthdate 1965 Date of evaluation: 03/06/2025 ED Provider: Jorge Roth MD CHIEF COMPLAINT Chief Complaint Patient presents with Fall Pt from assisted living, slid off the edge of her couch. Pt reports left knee pain. Staff reports she had a fall earlier today. HISTORY OF PRESENT ILLNESS (Location/Symptom, Timing/Onset, Context/Setting, Quality, Duration, Modifying Factors, Severity) Note limiting factors. I wore appropriate PPE for the entirety of this encounter. HPI Jessy Mckeon is a 60 y.o. who presents to the emergency department with chief complaint of fall. Patient presents from assisted living by EMS. Past history includes hypertension hyperlipidemia hypothyroidism CKD Asperger syndrome and bipolar. Patient reports she is fallen twice recently. She states she falls quite often that she has chronic edema and arthritis in her legs. She was not lightheaded or dizzy no chest pain palpitations no recent illness. Denies hitting her head when she fell. She has some bruising to her left elbow and left knee. She uses a rollator to get around. Denies any new neck back pain. She has a buprenorphine pain patch she states. Nursing Notes were reviewed. Limitations to history: None Outside historians: EMS REVIEW OF SYSTEMS Review of Systems Constitutional: Negative for fever. Respiratory: Negative for shortness of breath. Cardiovascular: Positive for leg swelling. Negative for chest pain. Gastrointestinal: Negative for vomiting. Musculoskeletal: Positive for arthralgias and myalgias. Negative for back pain. Neurological: Positive for weakness. Pertinent positives and negatives as per HPI. PAST MEDICAL HISTORY Medical History[1] SURGICAL HISTORY Surgical History[2] CURRENT MEDICATIONS Previous Medications ACETAMINOPHEN (TYLENOL) 325 MG TABLET Take by mouth. BISACODYL (DULCOLAX) 10 MG SUPPOSITORY Insert into the rectum. BUPRENORPHINE (BUTRANS) 20 MCG/HR Place 1 patch on the skin. CLONAZEPAM (KLONOPIN) 0.5 MG TABLET Take 1 tablet (0.5 mg) by mouth 2 times daily as needed for anxiety. DIVALPROEX (DEPAKOTE ER) 250 MG 24 HR TABLET Take 1 tablet (250 mg) by mouth in the morning and 1 tablet (250 mg) at noon and 1 tablet (250 mg) in the evening. Take with meals. DULOXETINE (CYMBALTA) [address] CAPSULE Take 1 capsule (60 mg) by mouth daily. Do not crush or chew. EPOETIN MOLLY-EPBX (RETACRIT) 72438 UNIT/ML INJECTION Inject 10,000 Units under the skin. ERGOCALCIFEROL (VITAMIN D-2) 1.25 MG (59627 UT) CAPSULE Take 1.25 mg by mouth 1 (one) time per week. FUROSEMIDE (LASIX) 40 MG TABLET Take 1 tablet (40 mg) by mouth daily. HYDRALAZINE (APRESOLINE) 25 MG TABLET Take 1 tablet (25 mg) by mouth 3 times daily. LAMOTRIGINE (LAMICTAL) 150 MG TABLET Take 1 tablet (150 mg) by mouth Nightly. LEVOTHYROXINE (SYNTHROID, LEVOXYL) 125 MCG TABLET Take 1 tablet (125 mcg) by mouth daily. Do not start before August 06, 2024. MELATONIN PO Take by mouth. METOPROLOL TARTRATE (LOPRESSOR) 100 MG TABLET Take 1 tablet (100 mg) by mouth 2 times daily. MICONAZOLE (MICOTIN) 2 % POWDER Apply topically 2 times daily. NYSTATIN (MYCOSTATIN) 113229 UNIT/GM POWDER Apply topically 2 times daily. Apply to groin OMEPRAZOLE (PRILOSEC) [address] CAPSULE Take 1 capsule (40 mg) by mouth every morning (before breakfast). Do not crush or chew. POLYETHYLENE GLYCOL, PEG, 3350 (MIRALAX) 17 G PACKET Take by mouth. POLYSACCHARIDE IRON COMPLEX (IFEREX 150 PO) Take by mouth. Daily Kuf-Qbk-Geajke RISPERIDONE (RISPERDAL) 3 MG TABLET Take 1 tablet (3 mg) by mouth Nightly. ROSUVASTATIN (CRESTOR) 10 MG TABLET TAKE 1 TABLET BY MOUTH DAILY TRAZODONE (DESYREL) 100 MG TABLET Take 2 tablets (200 mg) by mouth Nightly. ALLERGIES Antihistamines, chlorpheniramine-type; Benztropine; Diphenhydramine; Nsaids; Other; and Venlafaxine FAMILY HISTORY Family History[3] SOCIAL HISTORY Social History[4] SCREENINGS PHYSICAL EXAM ED Triage Vitals [03/06/25 0539] Temp Heart Rate Resp BP 37 C (98.6 F) 72 18 118/60 SpO2 Temp Source Heart Rate Source Patient Position 100 % Oral Monitor Lying BP Location FiO2 (%) Left arm -- Physical Exam Vitals and nursing note reviewed. Constitutional: General: She is not in acute distress. Appearance: She is well-developed. She is obese. She is not diaphoretic. Comments: Appears chronically ill but not acutely HENT: Head: Normocephalic and atraumatic. Mouth/Throat: Mouth: Mucous membranes are moist. Pharynx: Oropharynx is clear. Eyes: Extraocular Movements: Extraocular movements intact. Conjunctiva/sclera: Conjunctivae normal. Pupils: Pupils are equal, round, and reactive to light. Cardiovascular: Rate and Rhythm: Normal rate and regular rhythm. Heart sounds: No murmur heard. Pulmonary: Effort: Pulmonary effort is normal. No respiratory distress. Breath sounds: Normal breath sounds. Abdominal: Palpations: Abdomen is soft. Tenderness: There is no abdominal tenderness. Musculoskeletal: General: No swelling. Right shoulder: Normal. Left shoulder: Normal. Right elbow: Normal. Left elbow: Tenderness present in lateral epicondyle. Right wrist: Normal. Left wrist: Normal. Cervical back: Normal and neck supple. No bony tenderness. Thoracic back: No bony tenderness. Decreased range of motion. Lumbar back: No bony tenderness. Decreased range of motion. Right hip: Normal. Left hip: Normal. Right knee: Normal. Left knee: Tenderness present over the lateral joint line. Right ankle: Normal. Left ankle: Normal. Comments: Unable to assess laxity of the knee or instability testing due to habitus Skin: General: Skin is warm and dry. Capillary Refill: Capillary refill takes less than 2 seconds. Neurological: General: No focal deficit present. Mental Status: She is alert and oriented to person, place, and time. GCS: GCS eye subscore is 4. GCS verbal subscore is 5. GCS motor subscore is 6. Sensory: Sensation is intact. Motor: Motor function is intact. Psychiatric: Mood and Affect: Mood normal. Thought Content: Thought content normal. DIAGNOSTIC RESULTS Procedures/EKG: EKG was reviewed by myself. Physician EKG interpretation can be found in [facility] RADIOLOGY (Per Emergency Physician): X-ray left knee shows no acute fracture Interpretation per the Radiologist below, if available at the time of this note: XR elbow 3+ views left Final Result Negative plain film examination of the left elbow. Report Dictated on Electronically Signed By: Mary Nielsen MD Electronically Signed Date/Time: 03/06/2025 6:47 AM EDT XR knee 3 views left Final Result Poorly positioned study with no fracture identified. Recommend repeat views if symptoms persist. Severe osteoarthritis. Report Dictated on Electronically Signed By: Mary Nielsen MD Electronically Signed Date/Time: 03/06/2025 6:46 AM EDT XR pelvis 1 or 2 views Final Result No fracture or dislocation. Report Dictated on Electronically Signed By: Mary Nielsen MD Electronically Signed Date/Time: 03/06/2025 6:44 AM EDT ED BEDSIDE ULTRASOUND: Performed by ED Physician - none LABS: Labs Reviewed - No data to display All other labs were within normal range or not returned as of this dictation. EMERGENCY DEPARTMENT COURSE and DIFFERENTIAL DIAGNOSIS/MDM: Vitals: Vitals: 03/06/25 0539 BP: 118/60 BP Location: Left arm Patient Position: Lying Pulse: 72 Resp: 18 Temp: 37 C (98.6 F) TempSrc: Oral SpO2: 100% 60-year-old female here after mechanical falls with left elbow and knee pain. Differential contusion sprain fracture. Plan is for x-rays. She has a buprenorphine pain patch. Denies hitting her head no objective head trauma normal neurologic exam. Do not believe a head CT indicated although I considered it. Medical history impacting this visit includes chronic pain. I reviewed her inpatient discharge summary from 01/15/2025 after admitted for falls, appears as though she has chronic pain and swelling in her legs from that visit. Diagnoses as of 03/06/25 0650 Fall, initial encounter Contusion of left elbow, initial encounter Contusion of left knee, initial encounter Medications - No data to display REVAL: X-rays are negative. Arthritis noted left knee. Patient normally uses a rollator, she is able to walk with assistance here. Will discharge back to facility. Return precautions given. CRITICAL CARE TIME CONSULTS: None PROCEDURES: Unless otherwise noted below, none Procedures Patients symptoms are consistent with sepsis, severe sepsis, or septic shock (If yes use ".sepsiscoremeasure"): FINAL IMPRESSION 1. Fall, initial encounter 2. Contusion of left elbow, initial encounter 3. Contusion of left knee, initial encounter DISPOSITION Discharge 03/06/2025 06:49:58 AM PATIENT REFERRED TO: Edith Pierce MD [address] [place] [address] [address] [facility] [id number] As needed DISCHARGE MEDICATIONS: New Prescriptions No medications on file (Comment: Please note this report has been produced using speech recognition software and may contain errors related to that system including errors in grammar, punctuation, and spelling, as well as words and phrases that may be inappropriate. If there are any questions or concerns please feel free to contact the dictating provider for clarification.) Jorge Roth MD (electronically signed) Emergency Medicine Provider [1] Past Medical History: Diagnosis Date Acid reflux Anxiety Arthritis Asperger syndrome Bipolar disorder (HCC) Chronic kidney disease stage 4 kidney failure Chronic pain Depression Edema of both legs GERD (gastroesophageal reflux disease) Hemorrhoids Hyperlipidemia Hypertension Hypothyroidism Iron (Fe) deficiency anemia Nephrogenic diabetes insipidus (HCC) Pain management Retention of urine, unspecified Sciatica SOB (shortness of breath) GRANT Type II or unspecified type diabetes mellitus without mention of complication, not stated as uncontrolled (HCC) Urinary incontinence nightly [2] Past Surgical History: Procedure Laterality Date 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 CHOLECYSTECTOMY COLON SURGERY c-diff COLONOSCOPY 03/28/2018 no polyps UPPER GASTROINTESTINAL ENDOSCOPY 03/28/2018 [3] Family History Problem Relation Name Age of Onset Hypertension Mother Cancer Father Colon cancer Maternal Grandmother Cancer Brother [4] Social History Socioeconomic History Marital status: Single Tobacco Use Smoking status: Former Smokeless tobacco: Never Vaping Use Vaping status: Never Used Substance and Sexual Activity Alcohol use: No Alcohol/week: 0.0 standard drinks of alcohol Drug use: No Sexual activity: Not Currently Social Drivers of Health Financial Resource Strain: Low Risk (12/30/2024) Overall Financial Resource Strain (CARDIA) Difficulty of Paying Living Expenses: Not hard at all Food Insecurity: No Food Insecurity (12/30/2024) Hunger Vital Sign Worried About Running Out of Food in the Last Year: Never true Ran Out of Food in the Last Year: Never true Transportation Needs: No Transportation Needs (12/30/2024) PRAPARE - Transportation Lack of Transportation (Medical): No Lack of Transportation (Non-Medical): No Physical Activity: Inactive (12/30/2024) Exercise Vital Sign Days of Exercise per Week: 0 days Minutes of Exercise per Session: 0 min Stress: Stress Concern Present (12/30/2024) [employer] - Occupational Stress Questionnaire Feeling of Stress : To some extent Social Connections: Socially Isolated (12/30/2024) Social Connection and Isolation Panel [NHANES] Frequency of Communication with Friends and Family: More than three times a week Frequency of Social Gatherings with Friends and Family: More than three times a week Attends Cheondoism Services: Never Active Member of Clubs or Organizations: No Attends Club or Organization Meetings: Never Marital Status: Never Intimate Partner Violence: Not At Risk (12/30/2024) Humiliation, Afraid, Rape, and Kick questionnaire Fear of Current or Ex-Partner: No Emotionally Abused: No Physically Abused: No Sexually Abused: No Housing Stability: Low Risk (12/30/2024) Housing Stability Vital Sign Unable to Pay for Housing in the Last Year: No Number of Times Moved in the Last Year: 1 Homeless in the Last Year: No Jorge Roth MD 03/06/25 0651 documented in this encounter [facility] 03-06-2025 Emergency department Note Upon arrival pt began to report that she was anxious and needed meds for anxiety "like klonopin." [facility] 03-06-2025 Physician Emergency department Note EMERGENCY DEPARTMENT ENCOUNTER Pt Name: Jessy Mckeon Birthdate 1965 Date of evaluation: 03/06/2025 ED Provider: Jorge Roth MD CHIEF COMPLAINT Chief Complaint Patient presents with Fall Pt from assisted living, slid off the edge of her couch. Pt reports left knee pain. Staff reports she had a fall earlier today. HISTORY OF PRESENT ILLNESS (Location/Symptom, Timing/Onset, Context/Setting, Quality, Duration, Modifying Factors, Severity) Note limiting factors. I wore appropriate PPE for the entirety of this encounter. HPI Jessy Mckeon is a 60 y.o. who presents to the emergency department with chief complaint of fall. Patient presents from assisted living by EMS. Past history includes hypertension hyperlipidemia hypothyroidism CKD Asperger syndrome and bipolar. Patient reports she is fallen twice recently. She states she falls quite often that she has chronic edema and arthritis in her legs. She was not lightheaded or dizzy no chest pain palpitations no recent illness. Denies hitting her head when she fell. She has some bruising to her left elbow and left knee. She uses a rollator to get around. Denies any new neck back pain. She has a buprenorphine pain patch she states. Nursing Notes were reviewed. Limitations to history: None Outside historians: EMS REVIEW OF SYSTEMS Review of Systems Constitutional: Negative for fever. Respiratory: Negative for shortness of breath. Cardiovascular: Positive for leg swelling. Negative for chest pain. Gastrointestinal: Negative for vomiting. Musculoskeletal: Positive for arthralgias and myalgias. Negative for back pain. Neurological: Positive for weakness. Pertinent positives and negatives as per HPI. PAST MEDICAL HISTORY Medical History[1] SURGICAL HISTORY Surgical History[2] CURRENT MEDICATIONS Previous Medications ACETAMINOPHEN (TYLENOL) 325 MG TABLET Take by mouth. BISACODYL (DULCOLAX) 10 MG SUPPOSITORY Insert into the rectum. BUPRENORPHINE (BUTRANS) 20 MCG/HR Place 1 patch on the skin. CLONAZEPAM (KLONOPIN) 0.5 MG TABLET Take 1 tablet (0.5 mg) by mouth 2 times daily as needed for anxiety. DIVALPROEX (DEPAKOTE ER) 250 MG 24 HR TABLET Take 1 tablet (250 mg) by mouth in the morning and 1 tablet (250 mg) at noon and 1 tablet (250 mg) in the evening. Take with meals. DULOXETINE (CYMBALTA) [address] CAPSULE Take 1 capsule (60 mg) by mouth daily. Do not crush or chew. EPOETIN MOLLY-EPBX (RETACRIT) 74818 UNIT/ML INJECTION Inject 10,000 Units under the skin. ERGOCALCIFEROL (VITAMIN D-2) 1.25 MG (69549 UT) CAPSULE Take 1.25 mg by mouth 1 (one) time per week. FUROSEMIDE (LASIX) 40 MG TABLET Take 1 tablet (40 mg) by mouth daily. HYDRALAZINE (APRESOLINE) 25 MG TABLET Take 1 tablet (25 mg) by mouth 3 times daily. LAMOTRIGINE (LAMICTAL) 150 MG TABLET Take 1 tablet (150 mg) by mouth Nightly. LEVOTHYROXINE (SYNTHROID, LEVOXYL) 125 MCG TABLET Take 1 tablet (125 mcg) by mouth daily. Do not start before August 06, 2024. MELATONIN PO Take by mouth. METOPROLOL TARTRATE (LOPRESSOR) 100 MG TABLET Take 1 tablet (100 mg) by mouth 2 times daily. MICONAZOLE (MICOTIN) 2 % POWDER Apply topically 2 times daily. NYSTATIN (MYCOSTATIN) 183113 UNIT/GM POWDER Apply topically 2 times daily. Apply to groin OMEPRAZOLE (PRILOSEC) [address] CAPSULE Take 1 capsule (40 mg) by mouth every morning (before breakfast). Do not crush or chew. POLYETHYLENE GLYCOL, PEG, 3350 (MIRALAX) 17 G PACKET Take by mouth. POLYSACCHARIDE IRON COMPLEX (IFEREX 150 PO) Take by mouth. Daily Ynf-Fdl-Roxvjx RISPERIDONE (RISPERDAL) 3 MG TABLET Take 1 tablet (3 mg) by mouth Nightly. ROSUVASTATIN (CRESTOR) 10 MG TABLET TAKE 1 TABLET BY MOUTH DAILY TRAZODONE (DESYREL) 100 MG TABLET Take 2 tablets (200 mg) by mouth Nightly. ALLERGIES Antihistamines, chlorpheniramine-type; Benztropine; Diphenhydramine; Nsaids; Other; and Venlafaxine FAMILY HISTORY Family History[3] SOCIAL HISTORY Social History[4] SCREENINGS PHYSICAL EXAM ED Triage Vitals [03/06/25 0539] Temp Heart Rate Resp BP 37 C (98.6 F) 72 18 118/60 SpO2 Temp Source Heart Rate Source Patient Position 100 % Oral Monitor Lying BP Location FiO2 (%) Left arm -- Physical Exam Vitals and nursing note reviewed. Constitutional: General: She is not in acute distress. Appearance: She is well-developed. She is obese. She is not diaphoretic. Comments: Appears chronically ill but not acutely HENT: Head: Normocephalic and atraumatic. Mouth/Throat: Mouth: Mucous membranes are moist. Pharynx: Oropharynx is clear. Eyes: Extraocular Movements: Extraocular movements intact. Conjunctiva/sclera: Conjunctivae normal. Pupils: Pupils are equal, round, and reactive to light. Cardiovascular: Rate and Rhythm: Normal rate and regular rhythm. Heart sounds: No murmur heard. Pulmonary: Effort: Pulmonary effort is normal. No respiratory distress. Breath sounds: Normal breath sounds. Abdominal: Palpations: Abdomen is soft. Tenderness: There is no abdominal tenderness. Musculoskeletal: General: No swelling. Right shoulder: Normal. Left shoulder: Normal. Right elbow: Normal. Left elbow: Tenderness present in lateral epicondyle. Right wrist: Normal. Left wrist: Normal. Cervical back: Normal and neck supple. No bony tenderness. Thoracic back: No bony tenderness. Decreased range of motion. Lumbar back: No bony tenderness. Decreased range of motion. Right hip: Normal. Left hip: Normal. Right knee: Normal. Left knee: Tenderness present over the lateral joint line. Right ankle: Normal. Left ankle: Normal. Comments: Unable to assess laxity of the knee or instability testing due to habitus Skin: General: Skin is warm and dry. Capillary Refill: Capillary refill takes less than 2 seconds. Neurological: General: No focal deficit present. Mental Status: She is alert and oriented to person, place, and time. GCS: GCS eye subscore is 4. GCS verbal subscore is 5. GCS motor subscore is 6. Sensory: Sensation is intact. Motor: Motor function is intact. Psychiatric: Mood and Affect: Mood normal. Thought Content: Thought content normal. DIAGNOSTIC RESULTS Procedures/EKG: EKG was reviewed by myself. Physician EKG interpretation can be found in [facility] RADIOLOGY (Per Emergency Physician): X-ray left knee shows no acute fracture Interpretation per the Radiologist below, if available at the time of this note: XR elbow 3+ views left Final Result Negative plain film examination of the left elbow. Report Dictated on Electronically Signed By: Mary Nielsen MD Electronically Signed Date/Time: 03/06/2025 6:47 AM EDT XR knee 3 views left Final Result Poorly positioned study with no fracture identified. Recommend repeat views if symptoms persist. Severe osteoarthritis. Report Dictated on Electronically Signed By: Mary Nielsen MD Electronically Signed Date/Time: 03/06/2025 6:46 AM EDT XR pelvis 1 or 2 views Final Result No fracture or dislocation. Report Dictated on Workstation: [employer] Electronically Signed By: Mary Nielsen MD Electronically Signed Date/Time: 03/06/2025 6:44 AM EDT ED BEDSIDE ULTRASOUND: Performed by ED Physician - none LABS: Labs Reviewed - No data to display All other labs were within normal range or not returned as of this dictation. EMERGENCY DEPARTMENT COURSE and DIFFERENTIAL DIAGNOSIS/MDM: Vitals: Vitals: 03/06/25 0539 BP: 118/60 BP Location: Left arm Patient Position: Lying Pulse: 72 Resp: 18 Temp: 37 C (98.6 F) TempSrc: Oral SpO2: 100% 60-year-old female here after mechanical falls with left elbow and knee pain. Differential contusion sprain fracture. Plan is for x-rays. She has a buprenorphine pain patch. Denies hitting her head no objective head trauma normal neurologic exam. Do not believe a head CT indicated although I considered it. Medical history impacting this visit includes chronic pain. I reviewed her inpatient discharge summary from 01/15/2025 after admitted for falls, appears as though she has chronic pain and swelling in her legs from that visit. Diagnoses as of 03/06/25 0650 Fall, initial encounter Contusion of left elbow, initial encounter Contusion of left knee, initial encounter Medications - No data to display REVAL: X-rays are negative. Arthritis noted left knee. Patient normally uses a rollator, she is able to walk with assistance here. Will discharge back to facility. Return precautions given. CRITICAL CARE TIME CONSULTS: None PROCEDURES: Unless otherwise noted below, none Procedures Patients symptoms are consistent with sepsis, severe sepsis, or septic shock (If yes use ".sepsiscoremeasure"): FINAL IMPRESSION 1. Fall, initial encounter 2. Contusion of left elbow, initial encounter 3. Contusion of left knee, initial encounter DISPOSITION Discharge 03/06/2025 06:49:58 AM PATIENT REFERRED TO: Edith Pierce MD [address] [place] [address] [address] [facility] [address] As needed DISCHARGE MEDICATIONS: New Prescriptions No medications on file (Comment: Please note this report has been produced using speech recognition software and may contain errors related to that system including errors in grammar, punctuation, and spelling, as well as words and phrases that may be inappropriate. If there are any questions or concerns please feel free to contact the dictating provider for clarification.) Jorge Roth MD (electronically signed) Emergency Medicine Provider [1] Past Medical History: Diagnosis Date Acid reflux Anxiety Arthritis Asperger syndrome Bipolar disorder (HCC) Chronic kidney disease stage 4 kidney failure Chronic pain Depression Edema of both legs GERD (gastroesophageal reflux disease) Hemorrhoids Hyperlipidemia Hypertension Hypothyroidism Iron (Fe) deficiency anemia Nephrogenic diabetes insipidus (HCC) Pain management Retention of urine, unspecified Sciatica SOB (shortness of breath) GRANT Type II or unspecified type diabetes mellitus without mention of complication, not stated as uncontrolled (HCC) Urinary incontinence nightly [2] Past Surgical History: Procedure Laterality Date 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 CHOLECYSTECTOMY COLON SURGERY c-diff COLONOSCOPY 03/28/2018 no polyps UPPER GASTROINTESTINAL ENDOSCOPY 03/28/2018 [3] Family History Problem Relation Name Age of Onset Hypertension Mother Cancer Father Colon cancer Maternal Grandmother Cancer Brother [4] Social History Socioeconomic History Marital status: Single Tobacco Use Smoking status: Former Smokeless tobacco: Never Vaping Use Vaping status: Never Used Substance and Sexual Activity Alcohol use: No Alcohol/week: 0.0 standard drinks of alcohol Drug use: No Sexual activity: Not Currently Social Drivers of Health Financial Resource Strain: Low Risk (12/30/2024) Overall Financial Resource Strain (CARDIA) Difficulty of Paying Living Expenses: Not hard at all Food Insecurity: No Food Insecurity (12/30/2024) Hunger Vital Sign Worried About Running Out of Food in the Last Year: Never true Ran Out of Food in the Last Year: Never true Transportation Needs: No Transportation Needs (12/30/2024) PRAPARE - Transportation Lack of Transportation (Medical): No Lack of Transportation (Non-Medical): No Physical Activity: Inactive (12/30/2024) Exercise Vital Sign Days of Exercise per Week: 0 days Minutes of Exercise per Session: 0 min Stress: Stress Concern Present (12/30/2024) [employer] - Occupational Stress Questionnaire Feeling of Stress : To some extent Social Connections: Socially Isolated (12/30/2024) Social Connection and Isolation Panel [NHANES] Frequency of Communication with Friends and Family: More than three times a week Frequency of Social Gatherings with Friends and Family: More than three times a week Attends Cheondoism Services: Never Active Member of Clubs or Organizations: No Attends Club or Organization Meetings: Never Marital Status: Never Intimate Partner Violence: Not At Risk (12/30/2024) Humiliation, Afraid, Rape, and Kick questionnaire Fear of Current or Ex-Partner: No Emotionally Abused: No Physically Abused: No Sexually Abused: No Housing Stability: Low Risk (12/30/2024) Housing Stability Vital Sign Unable to Pay for Housing in the Last Year: No Number of Times Moved in the Last Year: 1 Homeless in the Last Year: No Jorge Roth MD 03/06/2551 [facility] 01-15-2025 Miscellaneous Notes Patient Choice Patient Name: JESSY MCKEON Date of : 1965 All Providers Sent Referral Name: Steffen Phone: [phone] Address: [address] [place] [address] [address] [place] [address] [facility] per TCC request. Auth obtained Discharge order placed to pt chart IRASEMA completed Transport set for 230 pm Secure chat with ANTON BLANCHARD, and corporate secretary to report facility has auth; dc orders to be placed and transport 230pm. SN notified pt of transport time. CM will follow through dc. from [facility], following up on pt request RTC, P# [phone]. Call to [facility] updated plan is for pt to go to [facility] under Skilled care and pt is discharging there now. Thanked for info. CM following through dc. [facility] notes patient is active with [facility]. [facility] referral to be sent to confirm services. [employer] following case for Discharge Needs. Response from [facility] in [facility]: After discussing her with the supervisors here, I'm sorry we can't take her back. She is not safe at home, there are a lot of safety and noncompliance issues. The AL is likely to not let her come back in the condition she is in, they were pushing for her to go to a SNF. She has stopped coming out of her room, has stopped going into the bathroom and urinates in her chair and calls the AL staff to change her, she refuses to let the nurses see her wounds or provide wound care, among other things. She will benefit from SNF or LTC placement TCC updated. Home care to sign off as TCC confirms patient will DC to [facility]. Chart reviewed. PASR, State level review and IRASEMA completed. Transport under will call in [employer] for today. Pt auth remains pending for SNF, [facility]. Pt refused PT yesterday, therapy see today note entered today, as Ins may ask for updates. Await ins auth for dc. CM and SW will follow for dc planning needs. Problem: Potential for Compromised Skin Integrity Goal: Skin Integrity is Maintained or Improved Outcome: Progressing Goal: Nutritional status is improving Outcome: Progressing Problem: Potential for Compromised Skin Integrity Goal: Skin Integrity is Maintained or Improved Outcome: Progressing Problem: Pain - Adult Goal: Verbalizes/displays adequate comfort level or baseline comfort level Outcome: Progressing Problem: Potential for Compromised Skin Integrity Goal: Skin Integrity is Maintained or Improved Outcome: Progressing Goal: Nutritional status is improving Outcome: Progressing Care Management Progress Note 01/13/25 0847 Rapid Rounds Attendance Clinical Rehab Specialist Planned Discharge Disposition SNF-[facility], AUTH pending Today we still await Attending completion of discharge workflow;Facility pre-cert This managed care specialist reviewed and completed weekend CarePort task requesting to follow this patient, assisting with discharge planning. Electronic chart and CarePort were reviewed. Contacted facility for update on AUTH status. AUTH remains pending at this time. Length of Stay (Days): 0 GMLOS: No GMLOS Documented Problem: Knowledge Deficit Goal: Patient/family/caregiver demonstrates understanding of disease process, treatment plan, medications, and discharge instructions Outcome: Progressing Problem: Potential for Compromised Skin Integrity Goal: Skin Integrity is Maintained or Improved Outcome: Progressing Goal: Nutritional status is improving Outcome: Progressing Problem: Urinary Incontinence Goal: Perineal skin integrity is maintained or improved Outcome: Progressing Problem: Pain - Adult Goal: Verbalizes/displays adequate comfort level or baseline comfort level Outcome: Progressing Problem: Safety - Adult Goal: Free from fall injury Outcome: Progressing Problem: Discharge Planning Goal: Discharge to home or other facility with appropriate resources Outcome: Progressing Problem: Chronic Conditions and Co-morbidities Goal: Patient's chronic conditions and co-morbidity symptoms are monitored and maintained or improved Outcome: Progressing Problem: Inadequate Airway Clearance Goal: Patient will maintain patent airway Outcome: Progressing Goal: Patient will achieve/maintain normal respiratory rate/effort Outcome: Progressing Problem: Inadequate Breathing Pattern Goal: Patient will maintain effective ventilation Outcome: Progressing Problem: Anxiety Goal: Anxiety is at manageable level Outcome: Progressing Problem: Activity Intolerance/Impaired Mobility Goal: Mobility/activity is maintained at optimum level for patient Outcome: Progressing Problem: Inadequate Coping Goal: Demonstrates ability to cope effectively Outcome: Progressing Goal: Verbalizes adaptive coping mechanisms Outcome: Progressing Goal: Verbalizes personal strengths Outcome: Progressing Problem: Discharge Barriers Goal: My discharge needs are met Outcome: Progressing Problem: Knowledge Deficit Goal: Patient/family/caregiver demonstrates understanding of disease process, treatment plan, medications, and discharge instructions Outcome: Progressing Problem: Potential for Compromised Skin Integrity Goal: Skin Integrity is Maintained or Improved Outcome: Progressing Problem: Urinary Incontinence Goal: Perineal skin integrity is maintained or improved Outcome: Progressing Problem: Pain - Adult Goal: Verbalizes/displays adequate comfort level or baseline comfort level Outcome: Progressing Problem: Safety - Adult Goal: Free from fall injury Outcome: Progressing Problem: Discharge Planning Goal: Discharge to home or other facility with appropriate resources Outcome: Progressing CM tasked to follow over the weekend. Msg sent to facility - [facility] remains pending. CM to assist with DC once kay is back. Problem: Knowledge Deficit Goal: Patient/family/caregiver demonstrates understanding of disease process, treatment plan, medications, and discharge instructions Outcome: Progressing Problem: Potential for Compromised Skin Integrity Goal: Skin Integrity is Maintained or Improved Outcome: Progressing Goal: Nutritional status is improving Outcome: Progressing Problem: Urinary Incontinence Goal: Perineal skin integrity is maintained or improved Outcome: Progressing Problem: Pain - Adult Goal: Verbalizes/displays adequate comfort level or baseline comfort level Outcome: Progressing Problem: Safety - Adult Goal: Free from fall injury Outcome: Progressing Problem: Discharge Planning Goal: Discharge to home or other facility with appropriate resources Outcome: Progressing Problem: Chronic Conditions and Co-morbidities Goal: Patient's chronic conditions and co-morbidity symptoms are monitored and maintained or improved Outcome: Progressing Problem: Inadequate Airway Clearance Goal: Patient will maintain patent airway Outcome: Progressing Goal: Patient will achieve/maintain normal respiratory rate/effort Outcome: Progressing Problem: Inadequate Breathing Pattern Goal: Patient will maintain effective ventilation Outcome: Progressing Problem: Anxiety Goal: Anxiety is at manageable level Outcome: Progressing Problem: Activity Intolerance/Impaired Mobility Goal: Mobility/activity is maintained at optimum level for patient Outcome: Progressing Problem: Inadequate Coping Goal: Demonstrates ability to cope effectively Outcome: Progressing Goal: Verbalizes adaptive coping mechanisms Outcome: Progressing Goal: Verbalizes personal strengths Outcome: Progressing Problem: Discharge Barriers Goal: My discharge needs are met Outcome: Progressing Problem: Potential for Compromised Skin Integrity Goal: Skin Integrity is Maintained or Improved 01/11/2025 1633 by Maura Smith RN Outcome: Progressing 01/11/2025 1632 by Maura Smith RN Outcome: Progressing Goal: Nutritional status is improving 01/11/2025 1633 by Maura Smith RN Outcome: Progressing 01/11/2025 1632 by Maura Smith RN Outcome: Progressing Problem: Pain - Adult Goal: Verbalizes/displays adequate comfort level or baseline comfort level 01/11/2025 1633 by Maura Smith RN Outcome: Progressing 01/11/2025 1632 by Maura Smith RN Outcome: Progressing Problem: Safety - Adult Goal: Free from fall injury 01/11/2025 1633 by Maura Smith RN Outcome: Progressing 01/11/2025 1632 by Maura Smith RN Outcome: Progressing Problem: Knowledge Deficit Goal: Patient/family/caregiver demonstrates understanding of disease process, treatment plan, medications, and discharge instructions Outcome: Progressing Problem: Potential for Compromised Skin Integrity Goal: Skin Integrity is Maintained or Improved Outcome: Progressing Goal: Nutritional status is improving Outcome: Progressing Problem: Pain - Adult Goal: Verbalizes/displays adequate comfort level or baseline comfort level Outcome: Progressing SW update: Updated Will Call in Roundtrip. Trip is now on calendar for 01/14. Completed weekend task for weekend TCC to check if auth comes back over the weekend. Received call from eva Melton CM, asking for a return call. SW attempted to call however had to leave asking for a return call. . SW follow up: Checked HENS. PASRR is now updated with correct first name for pt. Sent careport message to [facility], asking for update on auth and alerting PASRR is updated. Awaiting auth. . ANTON follow up: SW completed Will Call in Roundtrip. Will Call on calendar date 01/11. Awaiting insurance auth, for pt to go to [facility]. . Problem: Potential for Compromised Skin Integrity Goal: Nutritional status is improving Outcome: Progressing Problem: Urinary Incontinence Goal: Perineal skin integrity is maintained or improved Outcome: Progressing Problem: Pain - Adult Goal: Verbalizes/displays adequate comfort level or baseline comfort level Outcome: Progressing Problem: Knowledge Deficit Goal: Patient/family/caregiver demonstrates understanding of disease process, treatment plan, medications, and discharge instructions Outcome: Not Progressing Updated Clinicals placed to [facility] via Careport per TCC request. Chart reviewed. ANTON noted PASRR level II review completed. Auth 01/08. PT/OT notes in chart today. Tasked ATHLETIC GEAR CUSTODIAN to send updated clinical PT/OT today and IM yesterday to [facility]. Careport message to [facility] to report sending updated clinical shortly, please start auth and keep us posted. Plan [facility] pending INS auth. ANTON and CM will follow for dc planning. ANTON follow up: Checked HENS,Level II PASRR now completed. SW noticed pt first name was entered incorrectly into HENS. ANTON reached out to [facility], for advise on how to correct this mistake. advised SW to call [facility] , to request change and update with correct first name. Sent message to Joy Wiggins, updating Level II completed. Once we have PT/OT notes, will send over to SNF, as auth yesterday. Need updated auth. . 01/09/25 Called [facility], attempted to speak with DON to update on discharge planning. Had to leave a vm. In the vm updated on discharge plan. Asked DON to call if there were any questions. . follow up: Sent updated PT/OT and MD notes to requesting to restart auth. . follow up: No call back from [facility]. ANTON sent e-mail to [facility], with request to change first name in [facility]. Received e-mail response back, [facility], with [facility] cc'ing the [facility] [employer] help desk, asking help desk to assist in fixing error. . ANTON follow up: ANTON checked HENS, Level II still pending. Attempted to call [facility] DON again. DON didn't answer and vm is full, unable to leave a vm. . Chart reviewed. Pt VS and labs noted. Awaiting level 2 review for PASRR to go to SNF. PT/OT see tomorrow entered, prior rec SNF. Plan: [facility], pending review. SW and CM following for dc planning needs. Problem: Knowledge Deficit Goal: Patient/family/caregiver demonstrates understanding of disease process, treatment plan, medications, and discharge instructions Outcome: Not Progressing Problem: Potential for Compromised Skin Integrity Goal: Skin Integrity is Maintained or Improved Outcome: Not Progressing Problem: Urinary Incontinence Goal: Perineal skin integrity is maintained or improved Outcome: Not Progressing Problem: Pain - Adult Goal: Verbalizes/displays adequate comfort level or baseline comfort level Outcome: Not Progressing Problem: Discharge Planning Goal: Discharge to home or other facility with appropriate resources Outcome: Not Progressing Problem: Chronic Conditions and Co-morbidities Goal: Patient's chronic conditions and co-morbidity symptoms are monitored and maintained or improved Outcome: Not Progressing Problem: Anxiety Goal: Anxiety is at manageable level Outcome: Not Progressing Problem: Activity Intolerance/Impaired Mobility Goal: Mobility/activity is maintained at optimum level for patient Outcome: Not Progressing Problem: Inadequate Coping Goal: Demonstrates ability to cope effectively Outcome: Not Progressing Goal: Verbalizes adaptive coping mechanisms Outcome: Not Progressing Goal: Verbalizes personal strengths Outcome: Not Progressing Problem: Discharge Barriers Goal: My discharge needs are met Outcome: Not Progressing Problem: Problem Interventions Goal: Assess Nutritional Intake Outcome: Not Progressing Continue to monitor skin. Problem: Knowledge Deficit Goal: Patient/family/caregiver demonstrates understanding of disease process, treatment plan, medications, and discharge instructions Outcome: Not Progressing Problem: Potential for Compromised Skin Integrity Goal: Skin Integrity is Maintained or Improved Outcome: Not Progressing Problem: Urinary Incontinence Goal: Perineal skin integrity is maintained or improved Outcome: Not Progressing Problem: Pain - Adult Goal: Verbalizes/displays adequate comfort level or baseline comfort level Outcome: Not Progressing Problem: Discharge Planning Goal: Discharge to home or other facility with appropriate resources Outcome: Not Progressing Problem: Chronic Conditions and Co-morbidities Goal: Patient's chronic conditions and co-morbidity symptoms are monitored and maintained or improved Outcome: Not Progressing Problem: Anxiety Goal: Anxiety is at manageable level Outcome: Not Progressing Problem: Activity Intolerance/Impaired Mobility Goal: Mobility/activity is maintained at optimum level for patient Outcome: Not Progressing Problem: Inadequate Coping Goal: Demonstrates ability to cope effectively Outcome: Not Progressing Goal: Verbalizes adaptive coping mechanisms Outcome: Not Progressing Goal: Verbalizes personal strengths Outcome: Not Progressing Problem: Discharge Barriers Goal: My discharge needs are met Outcome: Not Progressing HEAD OF TRAINING AND DEVELOPMENT asked to review HENS for return of Level II Pasrr. HENS states that it was referred on 01/02/25 with no results back at this time. TCC notified. Problem: Knowledge Deficit Goal: Patient/family/caregiver demonstrates understanding of disease process, treatment plan, medications, and discharge instructions Outcome: Progressing Problem: Potential for Compromised Skin Integrity Goal: Skin Integrity is Maintained or Improved Outcome: Progressing Goal: Nutritional status is improving Outcome: Progressing Problem: Urinary Incontinence Goal: Perineal skin integrity is maintained or improved Outcome: Progressing Problem: Pain - Adult Goal: Verbalizes/displays adequate comfort level or baseline comfort level Outcome: Progressing Problem: Safety - Adult Goal: Free from fall injury Outcome: Progressing Problem: Discharge Planning Goal: Discharge to home or other facility with appropriate resources Outcome: Progressing Problem: Chronic Conditions and Co-morbidities Goal: Patient's chronic conditions and co-morbidity symptoms are monitored and maintained or improved Outcome: Progressing Problem: Inadequate Airway Clearance Goal: Patient will maintain patent airway Outcome: Progressing Goal: Patient will achieve/maintain normal respiratory rate/effort Outcome: Progressing Problem: Inadequate Breathing Pattern Goal: Patient will maintain effective ventilation Outcome: Progressing Problem: Anxiety Goal: Anxiety is at manageable level Outcome: Progressing Problem: Activity Intolerance/Impaired Mobility Goal: Mobility/activity is maintained at optimum level for patient Outcome: Progressing Problem: Inadequate Coping Goal: Demonstrates ability to cope effectively Outcome: Progressing Goal: Verbalizes adaptive coping mechanisms Outcome: Progressing Goal: Verbalizes personal strengths Outcome: Progressing Problem: Discharge Barriers Goal: My discharge needs are met Outcome: Progressing Problem: Problem Interventions Goal: Assess Nutritional Intake Outcome: Progressing Problem: Knowledge Deficit Goal: Patient/family/caregiver demonstrates understanding of disease process, treatment plan, medications, and discharge instructions Outcome: Progressing Problem: Potential for Compromised Skin Integrity Goal: Skin Integrity is Maintained or Improved Outcome: Progressing Goal: Nutritional status is improving Outcome: Progressing Problem: Pain - Adult Goal: Verbalizes/displays adequate comfort level or baseline comfort level Outcome: Progressing follow up: SW checked HEN, Level II is still pending. SW to place weekend TCC task to checked HENS over weekend, in case Level II gets completed later. SNF indicated they would be checking as well. Auth is good until 01/08. . SW follow up: Checked HENS Level II still pending. Received secure chat from [employer] [facility], they have auth [id number]. Pt needs to admit before 01/08 or will need new auth. ANTON attempted to call MELODY at [facility] with an update on discharge plans. DON out of office and vm full. Will try again . . ANTON follow up: Sent message via [employer]port to [facility], asking facility to go ahead and start auth. . follow up: [facility] requesting PASRR/7000 in order to submit for auth. Pt is in OBS status, requires PASRR. Reviewed chart. Met with pt, to ask some of the PASRR questions. Pt diag with Renee, along with mental health issues. Pt denies any involvement with DD Board. Receives psychiatric care at [facility] outpatient [facility], confirmed with Renee Santo diag does fall under DEL CID diag in HENS. SW completed PASRR in HENS. Pt requires a state Level II DEL CID review, due to Asperger diag. ANTON updated SNF. . Problem: Knowledge Deficit Goal: Patient/family/caregiver demonstrates understanding of disease process, treatment plan, medications, and discharge instructions Outcome: Progressing Problem: Potential for Compromised Skin Integrity Goal: Skin Integrity is Maintained or Improved Outcome: Progressing Goal: Nutritional status is improving Outcome: Progressing Problem: Urinary Incontinence Goal: Perineal skin integrity is maintained or improved Outcome: Progressing Problem: Pain - Adult Goal: Verbalizes/displays adequate comfort level or baseline comfort level Outcome: Progressing Problem: Safety - Adult Goal: Free from fall injury Outcome: Progressing Problem: Discharge Planning Goal: Discharge to home or other facility with appropriate resources Outcome: Progressing Problem: Discharge Planning Goal: Discharge to home or other facility with appropriate resources Outcome: Progressing SW update: Received response back from [facility], they are able to accept pt. [facility]. SW met with pt, introduced self/role. Updated pt SNF is able to accept pt. Pt agreeable to discharge plan. . ANTON follow up: PT/OT saw pt this am. Both recomm SNF at discharge. ANTON e-mailed the PT/OT notes to the DON at [place]. TCC met with pt, pt agree[facility] SN[facility]. [facility] [place] [facility] Awaiting response. . Problem: Knowledge Deficit Goal: Patient/family/caregiver demonstrates understanding of disease process, treatment plan, medications, and discharge instructions Outcome: Progressing Problem: Potential for Compromised Skin Integrity Goal: Skin Integrity is Maintained or Improved Outcome: Progressing Goal: Nutritional status is improving Outcome: Progressing Problem: Urinary Incontinence Goal: Perineal skin integrity is maintained or improved Outcome: Progressing Problem: Pain - Adult Goal: Verbalizes/displays adequate comfort level or baseline comfort level Outcome: Progressing Problem: Safety - Adult Goal: Free from fall injury Outcome: Progressing Problem: Discharge Planning Goal: Discharge to home or other facility with appropriate resources Outcome: Progressing Problem: Chronic Conditions and Co-morbidities Goal: Patient's chronic conditions and co-morbidity symptoms are monitored and maintained or improved Outcome: Progressing Problem: Inadequate Airway Clearance Goal: Patient will maintain patent airway Outcome: Progressing Goal: Patient will achieve/maintain normal respiratory rate/effort Outcome: Progressing Problem: Inadequate Breathing Pattern Goal: Patient will maintain effective ventilation Outcome: Progressing Problem: Anxiety Goal: Anxiety is at manageable level Outcome: Progressing Problem: Activity Intolerance/Impaired Mobility Goal: Mobility/activity is maintained at optimum level for patient Outcome: Progressing Problem: Inadequate Coping Goal: Demonstrates ability to cope effectively Outcome: Progressing Goal: Verbalizes adaptive coping mechanisms Outcome: Progressing Goal: Verbalizes personal strengths Outcome: Progressing Problem: Discharge Barriers Goal: My discharge needs are met Outcome: Progressing Problem: Problem Interventions Goal: Assess Nutritional Intake Outcome: Progressing Pt discussed in rounds. Pt familiar to SW from previous admission. Pt is [facility] in [place]. SW attempted to call [facility] . DON unavailable. SW left message with assembling machine operator, asking DON to call SW back. . N follow up: SW received return call from MELODY Stewart at the AL. Al indicated pt had multiple falls this weekend, which is not typical for pt. Pt has had some falls in the past but not multiple over a short time frame. [place] in [place] side of facility but due to decline, is now in [place]. AL assists with meds. MELODY is suggesting pt received SNF services at discharge. SW discussed PT/OT has not seen pt yet. SW to e-mail the PT/OT notes to MELODY at [email or web address], once we have notes. SW following. . Problem: Knowledge Deficit Goal: Patient/family/caregiver demonstrates understanding of disease process, treatment plan, medications, and discharge instructions Outcome: Progressing documented in this encounter [facility] 01-15-2025 Note Formatting of this n ote might be different from the original. Patient Choice Patient Name: JESSY MCKEON Date of : 1965 All Providers Sent Referral Name: [facility] Phone: [phone] Address: [address] [place] [address] [address] [place] [address] [facility] 01-15-2025 Note Formatting of this n ote might be different from the original. Patient Choice Patient Name: EJSSY MCKEON Date of : 1965 All Providers Sent Referral Name: [facility] Phone: [phone] Address: [address] [place] [address], [address] [place] [address] [facility] 01-15-2025 Note Formatting of this n ote might be different from the original. MAR & Discharge med list transmitted to [facility] via Careport per TCC request. [facility] 01-15-2025 Note Formatting of this n ote might be different from the original. MAR & Discharge med list transmitted to [facility] via Careport per TCC request. [facility] 01-15-2025 Note Formatting of this n ote might be different from the original. Auth obtained Discharge order placed to pt chart IRASEMA completed Transport set for 230 pm Secure chat with ANTON BLANCHARD, and corporate secretary to report facility has auth; dc orders to be placed and transport 230pm. SN notified pt of transport time. CM will follow through dc. from [facility], following up on pt request RTC, P# [phone]. Call to [facility] updated plan is for pt to go to [facility] under Skilled care and pt is discharging there now. Thanked for info. CM following through dc. [facility] 01-15-2025 Note Formatting of this n ote might be different from the original. Auth obtained Discharge order placed to pt chart IRASEMA completed Transport set for 230 pm Secure chat with ANTON BLANCHARD, and corporate secretary to report facility has auth; dc orders to be placed and transport 230pm. SN notified pt of transport time. CM will follow through dc. from [facility], following up on pt request RTC, P# [phone]. Call to [facility] updated plan is for pt to go to [facility] under Skilled care and pt is discharging there now. Thanked for info. CM following through dc. [facility] 01-15-2025 Nurse Note RN attempted to call report to [facility]. Was told nobody was available to take report. RN left name, and unit number. [facility] 01-15-2025 Nurse Note RN attempted to call report to [facility]. Was told nobody was available to take report. RN left name, and unit number. Rn gave nightly meds, incluing prns requested. Head to toe assessment done. Pt requested a diet gignger it was given nothing else needed. Bed in lowest position, brakes locked, bed alarm on and call light in reach. RN came into room to re-introduce self to pt, update white boards and go over nightly meds. Pt was awake laying flat in bed. Pt states her pain is better at 3/10. Pt is hyper-verbal but pleasant. Pt asked about her bloodwork and was pleased that they aren't taking away her water. Pt is okay with all nightly meds and wants her prn klonopin and melationin. Pt needs nothing else at this time. Bed in lowest position, brakes locked and call light with in reach. Pt asked for water to be refilled and a diet kathy kun. Rn passed nightly meds and talked to pt about getting blood work done tonight and pt agreed. RN went into room to introduce self to pt, update white board and go over nightly meds. Pt was awake laying in bed and okay with all meds. Pt needed nothing else at this time. Bed in lowest position, brakes locked and call light with in reach, Patient refused to be turned to apply ET mix. Patient educated on the importance of ET mix. Patient refused bloodwork for dayshift RN. Provider notified. Patient refusing morning blood work. Provider notified. Lea Clarke RN Patient refusing morning blood work. Provider notified. Patient refusing morning blood work. Provider notified. 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 Sullivan responded okay to leave out and check with day team Patient did not allow RN to turn her to look at her wounds during morning assessment. Sacral and L posterior wounds documented initially by ED nurse. Wound care consult placed. documented in this encounter [facility] 01-15-2025 Note [facility] 01-15-2025 Hospital course Narrative Discharge Summary Jessy Mckeon : 1965 ADMIT DATE: 12/30/2024 DISCHARGE DATE: 01/15/2025 PRIMARY CARE PHYSICIAN: Edith Pierce VISIT STATUS: Admission CODE STATUS: Full Code DISCHARGE DIAGNOSES: Principal Problem: Fall, initial encounter HOSPITAL COURSE: Jessy is a 59 y.o. female with a PMH of anxiety, arthritis, asperger syndrome, bipolar disorder, CKD stage 4, chronic pain, depression, GERD, HLD, HTN, hypothyroidism, MARY JANE, T2DM that presented to the ED on 12/30/24 from [facility] for recurrent falls. Pt complained of pain in her suprapubic area. She reported decreased strength, she uses a rollator at baseline however past few days prior to coming to the ED she has had 5-6 falls. Reported she slid down from her chair. She was unsure if she hit her head. She complained of LLE pain. CT head was unremarkable, xray left knee severe tricompartmental osteoarthritis of the knee." Labs in the ED showed Na 135, BUN 15, creatinine 2.72, no leukocytosis, H/H 7.7/24.4, valproic acid level 48, UA not concerning for infection. Xray left hand showed Fracture of the head of the fifth metacarpal." Xray pelvis, left femur no acute process, Xray left tib/fib no acute process. Left foot xray showed "Possible fracture of the fourth proximal metatarsal. Severe hallux valgus deformity and soft tissue swelling." 01/02/25 pt had drop in hgb to 7.2 from 7.7. Pt denied signs of acute blood loss. Reported history of MARY JANE. Iron panel showed iron 37, sat 25.3, TIBC 146. IV venofer was started. Wound care following Case management following for placement Interval History: No overnight issues. Patient is seen and examined She is comfortably resting in her bed, not in acute distress, she denies any new acute complaints except some cough Labs reviewed creatinine 2.67, stable, hemoglobin 8.1, stable Case and plan discussed with patient and bedside nurse. All questions answered. Adult diet Regular 24HR INTAKE/OUTPUT: Intake/Output Summary (Last 24 hours) at 01/15/2025 0995 Last data filed at 01/15/2025 0504 Gross per 24 hour Intake -- Output 1900 ml Net -1900 ml Past Medical History: [Medical History] [Medical History] Past Medical History Diagnosis Date Acid reflux Anxiety Arthritis Asperger syndrome Bipolar disorder (HCC) Chronic kidney disease stage 4 kidney failure Chronic pain Depression Edema of both legs GERD (gastroesophageal reflux disease) Hemorrhoids Hyperlipidemia Hypertension Hypothyroidism Iron (Fe) deficiency anemia Nephrogenic diabetes insipidus (HCC) Pain management Retention of urine, unspecified Sciatica SOB (shortness of breath) GRANT Type II or unspecified type diabetes mellitus without mention of complication, not stated as uncontrolled (HCC) Urinary incontinence nightly LABS: CBC: Recent Labs 01/13/2551701/14/2560301/15/25 0455 WBC 5.2 4.9 4.4 RBC 2.86* 2.79* 2.56* HGB 9.1* 8.9* 8.1* HCT 29.6* 28.7* 26.5* MCV 103.5* 102.9* 103.5* RDW 17.2* 17.2* 17.1* PLT 268 248 220 BMP: Recent Labs 01/13/2551701/14/2560301/15/25 0455 NA 138 137 137 K 4.8 4.8 5.0 CL 104 104 106 CO2 26 26 24 BUN 45* 41* 40* CREATININE 2.71* 2.63* 2.67* GLUCOSE 86 83 86 CALCIUM 9.3 9.4 9.0 ANIONGAP 8 7 7 LIVER PROFILE:No results for input(s): "AST", "ALT", "BILITOT", "ALKPHOS", "PROT" in the last 72 hours. No lab exists for component: LABALBU PT/INR: No results for input(s): "PROTIME", "INR" in the last 72 hours. CARDIAC ENZYMES: No results for input(s): "TROPONINI" in the last 72 hours. Procalcitonin: No results found for: "PROCAL" COVID-19 PCR: No results for input(s): "COVID19" in the last 72 hours. Objective: Vitals: BP 112/56 Pulse 74 Temp 36.2 C (97.1 F) (Temporal) Resp 16 Ht 5' 2.99" (1.6 m) Wt 258 lb 3.2 oz (117 kg) SpO2 96% BMI 45.75 kg/m Pulse Ox: SpO2 Av % Min: 96 % Max: 98 % Supplemental O2: Physical Exam Vitals and nursing note reviewed. Constitutional: Appearance: Normal appearance. She is obese. HENT: Head: Normocephalic and atraumatic. Mouth/Throat: Mouth: Mucous membranes are moist. Cardiovascular: Rate and Rhythm: Normal rate and regular rhythm. Heart sounds: Normal heart sounds. Pulmonary: Effort: Pulmonary effort is normal. Breath sounds: Normal breath sounds. No wheezing. Abdominal: Palpations: Abdomen is soft. Musculoskeletal: Right lower leg: No edema. Left lower leg: No edema. Comments: Splinted left hand Neurological: Mental Status: She is alert. Medications: Scheduled PRN [Scheduled Meds] [Scheduled Meds] acetaminophen, 1,000 mg, Oral, q8h buprenorphine, 1 patch, TransDERmal, Weekly divalproex, 250 mg, Oral, TID WC DULoxetine, 60 mg, Oral, Daily ergocalciferol, 1,250 mcg, Oral, Weekly ferrous sulfate, 325 mg, Oral, Daily with breakfast heparin, 5,000 Units, SubCUTAneous, 2 times per day lamoTRIgine, 150 mg, Oral, Nightly levothyroxine, 137.5 mcg, Oral, qAM AC miconazole, , Topical, BID pantoprazole, 40 mg, Oral, qAM AC polyethylene glycol (PEG) 3350, 17 g, Oral, Daily risperiDONE, 3 mg, Oral, Nightly rosuvastatin, 10 mg, Oral, Daily senna-docusate sodium, 2 tablet, Oral, BID sodium chloride 0.9%, 5-40 mL, IntraVENous, q12h stomahesive in petrolatum, , Topical, q8h traZODone, 200 mg, Oral, Nightly [PRN Meds] [PRN Meds] PRN medications: bisacodyl, clonazePAM, melatonin, naloxone, ondansetron ODT OR ondansetron, oxyCODONE OR oxyCODONE, sodium chloride, sodium chloride 0.9%, stomahesive in petrolatum Continuous [Continuous Meds] [Continuous Meds] Assessment Data: (CAT1) Reviewed 2 notes from different specialty or health system (each=1). (CAT1) Reviewed 2 labs/studies ordered by another provider not previously counted (each=1, panels count as 1). (LOW: 2x CAT1 or independent historian MOD: 3x CAT1 or 1x CAT3 EXTENSIVE: 3x CAT1 and 1x CAT3) Acute, acute on chronic, unstable/uncontrolled chronic problems/diagnoses: Generalized debility Recurrent falls Left leg pain- Improved Left leg severe osteoarthritis Hypothyroidism - TSH 40 MARY JANE - started on venofer ? Fx 4th proximal metatarsal right foot Fracture of the head of the fifth metacarpal left hand - present prior to admission, splint in place Sacral wound - present on admission Constipation Stable chronic problems affecting care, new non-acute diagnoses: Depression and anxiety CKD stage IIIb Asperger syndrome Debility HTN HLD Bipolar disorder Right foot laterally dislocated second MTP joint and laterally subluxed or dislocated first MTP joint Plan As a result of the above findings & factors, the following mgmt was pursued: - Continue with levothyroxine 136.5 mcg daily, will need repeat TSH in 4 weeks - hgb stable today 8.1, continue IV venofer, transfuse for hgb < 7 - wound care on consult -> cleanse with soap and water, apply ET mix TID and PRN, leave GRAIN HANDLER. Turn and reposition q 2 hr, waffle chair cushion -senna 2 tabs bid. Miralax every day, supp prn. - PT/OT on consult -> recommend SNF on discharge - Plan for discharge to [facility], pending Auth - regarding fifth metacarpal fx left hand - maintain splint, will need to follow ortho outpt. SIGNIFICANT DIAGNOSTIC STUDIES: CT head wo IV contrast [[id number]]Collected: 12/30/241838Order Status: CompletedUpdated: 12/30/24 1846Narrative: [facility] 1965 [id number] Exam Date/Time: 12/30/2024 18:23 Procedure: CT HEAD WO IV CONTRAST Ordering Provider: GONZALEZ PALLAVI Reason For Exam: Mental status change, unknown cause Indication: Mental status change Comparison date: No comparison. FINDINGS: Dose reduction was employed with automated exposure control.3 mm unenhanced imaging of the brain performed. Images viewed in multiple orthogonal planes. EXAMINATION LIMITED BY MOTION, STREAK ARTIFACT. Acute findings: No convincing significant acute findings within limits of the study. Bony structures:Unremarkable as seen. Orbits within normal limits, limited lack of contrast. Review of the paranasal sinuses shows no air-fluid levels. Impression: The etiology of symptoms is not certain. Consider follow-up. Comment: Please note this report has been produced using speech recognition software and may contain errors related to that system including errors in grammar, punctuation, and spelling as well as words and phrases that may be inappropriate. If there are any questions or concerns please feel free to contact the dictating provider for clarification Report Dictated on Electronically Signed By: Dinesh Reed MD Electronically Signed Date/Time: 12/30/2024 6:45 PM EDT XR knee 4+ views left [[id number]]Collected: 12/30/24 1203Order Status: CompletedUpdated: 12/30/24 1206Narrative: Patient Name: JESSY MCKEON : 1965 Exam Date/Time: 12/30/2024 11:55 Procedure: XR KNEE 4+ VIEWS LEFT Ordering Provider: DUENAS YASMIN Reason For Exam: knee pain LEFT KNEE CLINICAL INDICATION: Pain AP, lateral, tunnel, and patellar plain film views of the left knee were obtained. COMPARISON: 11/03/2015 FINDINGS: There is no evidence for fracture or subluxation. Significant medial compartment predominant osteoarthritic changes are noted in the knee with osteophytosis, joint space obliteration, subchondral sclerosis, and subchondral cystic formation. Increased density is noted in the suprapatellar soft tissues, compatible with a joint effusion. No bone lesion is identified. There is no other soft tissue abnormality. Impression: Severe tricompartmental osteoarthritis of the knee. Report Dictated on Electronically Signed By: Harvey Rayo MD Electronically Signed Date/Time: 12/30/2024 12:05 PM EDT XR foot 1 or 2 views left [[id number]]Collected: 12/29/24 0125Order Status: CompletedUpdated: 12/29/24 012Narrative: Patient Name: JESSY MCKEON : 1965 Exam Date/Time: 12/29/2024 00:11 Procedure: XR FOOT 1-2 VIEWS LEFT Ordering Provider: PATTON NISHIT Reason For Exam: left foot pain LEFT FOOT: CLINICAL INDICATION: left foot pain. TECHNIQUE: AP, Lat COMPARISON: 08/01/2024 FINDINGS: Flexion deformity of the toes is limited due to flexed positioning. Lucent oblique region within the proximal metaphysis of the fourth metatarsal may be a fracture site. There is no other fracture or dislocation Marked spurring is noted about the head of the first metatarsal and base of the first proximal phalanx with lateral angulation of the metatarsophalangeal joint, compatible with hallux valgus deformity. No bone lesion is identified. Diffuse soft tissue swelling is noted. Impression: Possible fracture of the fourth proximal metatarsal. Severe hallux valgus deformity and soft tissue swelling. Report Dictated on Electronically Signed By: Dario Torres MD Electronically Signed Date/Time: 12/29/2024 1:28 AM EDT XR tibia fibula 2 views left [[id number]]Collected: 12/28/242204Order Status: CompletedUpdated: 12/28/242207Narrative: Patient Name: JESSY MCKEON : 1965 Exam Date/Time: 12/28/2024 21:12 Procedure: XR TIBIA FIBULA 2 VIEWS LEFT Ordering Provider: PATTON NISHIT Reason For Exam: left leg pain LEFT TIBIA AND FIBULA 2 VIEWS CLINICAL INDICATION: left leg pain TECHNIQUE: 2 views of the left tibia and fibula. COMPARISON: None. FINDINGS: No acute fracture or dislocation. Soft tissues grossly unremarkable. Impression: 1. No acute osseous abnormality. Report Dictated on Electronically Signed By: Daniel Field MD Electronically Signed Date/Time: 12/28/2024 10:06 PM EDT XR femur left 2+ views [[id number]]Collected: 12/28/242202Order Status: CompletedUpdated: 12/28/242205Narrative: Patient Name: JESSY MCKEON : 1965 Exam Date/Time: 12/28/2024 21:11 Procedure: XR FEMUR 2+ VW LEFT Ordering Provider: PATTON NISHIT Reason For Exam: Pain left thigh PELVIS SINGLE VIEW. LEFT FEMUR 2 VIEWS CLINICAL INDICATION: trauma, pain TECHNIQUE: Single, AP view of the pelvis. 2 views of the left femur. COMPARISON: None. FINDINGS: No apparent fracture or dislocation. Postsurgical change and fixation hardware noted in the lumbosacral spine. Mild degenerative change in the bilateral hip joints. More pronounced degenerative change in the left knee joint. Soft tissues grossly unremarkable. Impression: 1. No acute osseous abnormality. 2. Postsurgical and degenerative change. Report Dictated on Electronically Signed By: Daniel Field MD Electronically Signed Date/Time: 12/28/2024 10:05 PM EDT XR pelvis 1 or 2 views [[id number]]Collected: 12/28/242202Order Status: CompletedUpdated: 12/28/242205Narrative: Patient Name: JESSY MCKEON : 1965 Exam Date/Time: 12/28/2024 21:11 Procedure: XR PELVIS 1-2 VIEWS Ordering Provider: PATTON NISHIT Reason For Exam: trauma PELVIS SINGLE VIEW. LEFT FEMUR 2 VIEWS CLINICAL INDICATION: trauma, pain TECHNIQUE: Single, AP view of the pelvis. 2 views of the left femur. COMPARISON: None. FINDINGS: No apparent fracture or dislocation. Postsurgical change and fixation hardware noted in the lumbosacral spine. Mild degenerative change in the bilateral hip joints. More pronounced degenerative change in the left knee joint. Soft tissues grossly unremarkable. Impression: 1. No acute osseous abnormality. 2. Postsurgical and degenerative change. Report Dictated on Electronically Signed By: Daniel Field MD Electronically Signed Date/Time: 12/28/2024 10:05 PM EDT XR hand 3+ views left [[id number]]Collected: 12/28/2410Order Status: CompletedUpdated: 12/28/24611Narrative: Patient Name: JESSY MCKEON : 1965 Exam Date/Time: 12/28/2024 05:15 Procedure: XR HAND 3+ VIEWS LEFT Ordering Provider: KIRKLAND AUSTIN Reason For Exam: fall L 5th MC bruising/swelling and pain LEFT HAND: CLINICAL INDICATION: fall L 5th MC bruising/swelling and pain. TECHNIQUE: PA, Lat, and oblique COMPARISON: None. FINDINGS: Nondisplaced fracture of the head of the fifth metacarpal is noted. There is no other fracture or dislocation. Spurring and narrowing is noted about the DIP and PIP joints along with the first carpometacarpal joint. There is also narrowing of the distal radiocarpal joint. Osteopenia is noted. No bone lesion is identified. There is soft tissue swelling. Impression: Fracture of the head of the fifth metacarpal. Osteoarthritis. Report Dictated on Electronically Signed By: Dario Torres MD Electronically Signed Date/Time: 12/28/2024 6:11 AM EDT CONSULTANTS: Wound care RECOMMENDED NEXT STEPS: Transfer to SNF DISCHARGE MEDICATIONS: Medication List START taking these medications ferrous sulfate 325 (65 Fe) MG tablet Take 1 tablet (325 mg) by mouth daily (with breakfast). Start taking on: January 16, 2025 miconazole 2 % powder Commonly known as: Micotin Apply topically 2 times daily. oxyCODONE 5 MG immediate release tablet Commonly known as: Roxicodone Take 0.5 tablets (2.5 mg) by mouth every 4 hours as needed for moderate pain (4-6) for up to 5 days. senna-docusate sodium 8.6-50 MG tablet Commonly known as: Senokot-S Take 2 tablets by mouth 2 times daily for 10 days. CONTINUE taking these medications acetaminophen 325 MG tablet Commonly known as: Tylenol bisacodyl 10 MG suppository Commonly known as: Dulcolax clonazePAM 0.5 MG tablet Commonly known as: KlonoPIN Take 1 tablet (0.5 mg) by mouth 2 times daily as needed for anxiety. divalproex 250 MG 24 hr tablet Commonly known as: Depakote ER Take 1 tablet (250 mg) by mouth in the morning and 1 tablet (250 mg) at noon and 1 tablet (250 mg) in the evening. Take with meals. DULoxetine [address] capsule Commonly known as: Cymbalta Take 1 capsule (60 mg) by mouth daily. Do not crush or chew. ergocalciferol 1.25 MG (29348 UT) capsule Commonly known as: Vitamin D-2 furosemide 40 MG tablet Commonly known as: Lasix Take 1 tablet (40 mg) by mouth daily. hydrALAZINE 25 MG tablet Commonly known as: Apresoline Take 1 tablet (25 mg) by mouth 3 times daily. IFEREX 150 PO lamoTRIgine 150 MG tablet Commonly known as: LaMICtal Take 1 tablet (150 mg) by mouth Nightly. MELATONIN PO metoprolol tartrate 100 MG tablet Commonly known as: Lopressor Take 1 tablet (100 mg) by mouth 2 times daily. nystatin 216351 UNIT/GM powder Commonly known as: Mycostatin Apply topically 2 times daily. Apply to groin omeprazole [address] capsule Commonly known as: PriLOSEC Take 1 capsule (40 mg) by mouth every morning (before breakfast). Do not crush or chew. polyethylene glycol (PEG) 3350 17 g packet Commonly known as: Miralax Retacrit 08733 UNIT/ML injection Generic drug: epoetin molly-epbx risperiDONE 3 MG tablet Commonly known as: RisperDAL Take 1 tablet (3 mg) by mouth Nightly. rosuvastatin 10 MG tablet Commonly known as: Crestor TAKE 1 TABLET BY MOUTH DAILY traZODone 100 MG tablet Commonly known as: Desyrel Take 2 tablets (200 mg) by mouth Nightly. STOP taking these medications amoxicillin 500 MG capsule Commonly known as: Amoxil ASK your doctor about these medications Butrans 20 MCG/HR Generic drug: buprenorphine levothyroxine 125 MCG tablet Commonly known as: Synthroid, Levoxyl Where to Get Your Medications These medications were sent to [facility]/pharmacy #[id number] [address] ferrous sulfate 325 (65 Fe) MG tablet miconazole 2 % powder senna-docusate sodium 8.6-50 MG tablet You can get these medications from any pharmacy Bring a paper prescription for each of these medications oxyCODONE 5 MG immediate release tablet DIET: Adult diet Regular ACTIVITY: Up with assist COMPLEXITY OF FOLLOW UP: [] Moderate Complexity: follow up within 7-14 calendar days (03032) [] Severe Complexity: follow up within 7 calendar days (58271) FOLLOW UP TESTING, PENDING RESULTS OR REFERRALS AT TRANSITIONAL CARE VISIT: [] Yes [] No PENDING STUDIES: DISPOSITION: Skilled Facility FACILITY/HOME CARE AGENCY NAME: Follow up with Edith Pierce MD [address] [facility] [address] [facility] [id number] [facility] Wound Ostomy [address] [facility] [address] INSTRUCTIONS TO MA/SW: Please call patient on day after discharge (must document patient contacted within 2 business days of discharge). FOLLOW UP QUESTIONS FOR MA/SW: 1. Did you get medications filled and taking them as instructed from discharge? 2. Are you following your discharge instructions from your hospital stay? 3. Please confirm patient is scheduled for a follow up appointment within the above time frame. DISCHARGE TIME: 31 Minutes SIGNED: Ashley Hayes MD 01/15/2025, 1:06 PM documented in this encounter [facility] 01-15-2025 Note Formatting of this n ote might be different from the original. TCC notes patient is active with [facility]. [facility] referral to be sent to confirm services. [employer] following case for Discharge Needs. Response from [facility]: After discussing her with the supervisors here, I'm sorry we can't take her back. She is not safe at home, there are a lot of safety and noncompliance issues. The AL is likely to not let her come back in the condition she is in, they were pushing for her to go to a SNF. She has stopped coming out of her room, has stopped going into the bathroom and urinates in her chair and calls the AL staff to change her, she refuses to let the nurses see her wounds or provide wound care, among other things. She will benefit from SNF or LTC placement TCC updated. Home care to sign off as TCC confirms patient will DC to [facility]. [facility] 01-15-2025 Note Formatting of this n ote might be different from the original. [facility] notes patient is active with [facility]. [facility] referral to be sent to confirm services. [employer] following case for Discharge Needs. Response from [facility] in [facility]: After discussing her with the supervisors here, I'm sorry we can't take her back. She is not safe at home, there are a lot of safety and noncompliance issues. The AL is likely to not let her come back in the condition she is in, they were pushing for her to go to a SNF. She has stopped coming out of her room, has stopped going into the bathroom and urinates in her chair and calls the AL staff to change her, she refuses to let the nurses see her wounds or provide wound care, among other things. She will benefit from SNF or LTC placement TCC updated. Home care to sign off as TCC confirms patient will DC to [facility]. [facility] 01-15-2025 History of Present illness Narrative Images from the original note were not included. PHYSICAL THERAPY [facility] Treatment Note Name/MRN: Jessy Mckeon ([id number]) Date of : 1965 Age: 59 y.o. Room/Bed: W7727/W7727 A Discharge Recommendation: Snf Facility Assessment Pt progressing slowly towards goals. Required min assist for bed mobility and seated scooting; tolerated sitting EOB ~8 min. Continue to rec SNF due to decreased strength & balance with high risk for falls, decreased safety & indep in mobility, & decreased activity tolerance. Subjective Pt resting in bed and agreeable to PT tx; RN okayed session. Pt declined standing trial due to pain and fatigue Pain: 0-10 pain scale: 9/10 Location: "all over" Medical Precautions: No active isolations Proper PPE donned/doffed in accordance with facility standards. Fall Risk: [place] Fall Risk Score: 50 (High Risk) Precautions/Restrictions: Lines/Drains/Airways: external catheter Overall Cognitive Status: Exceptions - Insights: decreased awareness of deficits - Initiation: requires cues for some - Sequencing: requires cues for some Overall Orientation Status: Oriented x4 Family/Caregiver Present: none Objective Bed Mobility Supine to sit: Min Assist; heavy use of bed rail, HOB ~30 degrees, assist to elevate trunk Sit to supine: Supervision; increased time to complete/labored Scooting: Min Assist for seated scooting at EOB, Dependent for supine scooting to HOB Balance During Session: Posture: fair Sitting - Static: Supervision Sitting - Dynamic: Min Assist Exercises BLE Exercises for improved strength & mobility Quad Sets: x10 BLE Heelslides: x10 BLE AROM Gluteal Sets: x10 Hip Flexion: x 10 reps seated BLE Hip Abduction: x 10 reps supine BLE Hip Adduction: x 10 seated BLE isometric pillow squeeze Knee Long Arc Quad: x 10 reps seated BLE Ankle Pumps: x 15 reps seated BLE Comments: verbal and tactile cues for proper form/full ROM, as well as cues for attention to task Plan Continue acute PT per plan of care. Safety/Education Safety Safety Devices in place: call light within reach and left in bed Restraints: No Education Education Given To: patient Education Provided: PT Role, PT Goals, Home Exercise Program, Fall Prevention Education, and Benefits of Increasing Activity Education Method: Verbal Barriers to Learning: None Education Outcome: Verbalized Understanding Outcome Measures AM-PAC AM-PAC Inpatient Mobility Raw Score (No Stairs) : 12 JH-HLM JH-HLM Score: Sat at edge of bed Goals Patient Stated Goal: to get stronger Encounter Problems Encounter Problems (Active) Mobility Patient will ambulate 50 feet with supervision and rolling walker in order to improve safety and independence with mobility. (Not Addressed) Start: 01/01/25 Expected End: 01/29/25 Pain - Adult Transfers Patient will perform bed mobility with supervision in order to improve independence and prepare for out of bed mobility. (Progressing) Start: 01/01/25 Expected End: 01/29/25 Patient will complete sit to stand transfer with supervision to walker in order to improve safety and prepare for out of bed mobility. (Not Addressed) Start: 01/01/25 Expected End: 01/29/25 Therapy Time Individual Co-treatment Time In 1034 Time Out 1058 Minutes 24 Timed Code Treatment Minutes: 24 Minutes (1 unit TP, 1 unit FA) Suzette Daily, PT Hospitalist Progress Note 01/15/2025 Subjective: Admit Date: 12/30/2024 PCP: Edith Pierce MD Room#: W7727/[id number] A BRIEF HOSPITAL COURSE: Jessy is a 59 y.o. female with a PMH of anxiety, arthritis, asperger syndrome, bipolar disorder, CKD stage 4, chronic pain, depression, GERD, HLD, HTN, hypothyroidism, MARY JANE, T2DM that presented to the ED on 12/30/24 from [facility] for recurrent falls. Pt complained of pain in her suprapubic area. She reported decreased strength, she uses a rollator at baseline however past few days prior to coming to the ED she has had 5-6 falls. Reported she slid down from her chair. She was unsure if she hit her head. She complained of LLE pain. CT head was unremarkable, xray left knee severe tricompartmental osteoarthritis of the knee." Labs in the ED showed Na 135, BUN 15, creatinine 2.72, no leukocytosis, H/H 7.7/24.4, valproic acid level 48, UA not concerning for infection. Xray left hand showed Fracture of the head of the fifth metacarpal." Xray pelvis, left femur no acute process, Xray left tib/fib no acute process. Left foot xray showed "Possible fracture of the fourth proximal metatarsal. Severe hallux valgus deformity and soft tissue swelling." 01/02/25 pt had drop in hgb to 7.2 from 7.7. Pt denied signs of acute blood loss. Reported history of MARY JANE. Iron panel showed iron 37, sat 25.3, TIBC 146. IV venofer was started. Wound care following Case management following for placement Interval History: No overnight issues. Patient is seen and examined She is comfortably resting in her bed, not in acute distress, she denies any new acute complaints except some cough Labs reviewed creatinine 2.67, stable, hemoglobin 8.1, stable Case and plan discussed with patient and bedside nurse. All questions answered. Adult diet Regular 24HR INTAKE/OUTPUT: Intake/Output Summary (Last 24 hours) at 01/15/2025 0919 Last data filed at 01/15/2025 0504 Gross per 24 hour Intake -- Output 1900 ml Net -1900 ml Past Medical History: Medical History[1] LABS: CBC: Recent Labs 01/13/2551701/14/25 0604 01/15/25 0455 WBC 5.2 4.9 4.4 RBC 2.86* 2.79* 2.56* HGB 9.1* 8.9* 8.1* HCT 29.6* 28.7* 26.5* MCV 103.5* 102.9* 103.5* RDW 17.2* 17.2* 17.1* PLT 268 248 220 BMP: Recent Labs 01/13/2551701/14/25 0604 01/15/25 0455 NA 138 137 137 K 4.8 4.8 5.0 CL 104 104 106 CO2 26 26 24 BUN 45* 41* 40* CREATININE 2.71* 2.63* 2.67* GLUCOSE 86 83 86 CALCIUM 9.3 9.4 9.0 ANIONGAP 8 7 7 LIVER PROFILE:No results for input(s): "AST", "ALT", "BILITOT", "ALKPHOS", "PROT" in the last 72 hours. No lab exists for component: LABALBU PT/INR: No results for input(s): "PROTIME", "INR" in the last 72 hours. CARDIAC ENZYMES: No results for input(s): "TROPONINI" in the last 72 hours. Procalcitonin: No results found for: "PROCAL" COVID-19 PCR: No results for input(s): "COVID19" in the last 72 hours. Objective: Vitals: BP 112/56 Pulse 74 Temp 36.2 C (97.1 F) (Temporal) Resp 16 Ht 5' 2.99" (1.6 m) Wt 258 lb 3.2 oz (117 kg) SpO2 96% BMI 45.75 kg/m Pulse Ox: SpO2 Av % Min: 96 % Max: 98 % Supplemental O2: Physical Exam Vitals and nursing note reviewed. Constitutional: Appearance: Normal appearance. She is obese. HENT: Head: Normocephalic and atraumatic. Mouth/Throat: Mouth: Mucous membranes are moist. Cardiovascular: Rate and Rhythm: Normal rate and regular rhythm. Heart sounds: Normal heart sounds. Pulmonary: Effort: Pulmonary effort is normal. Breath sounds: Normal breath sounds. No wheezing. Abdominal: Palpations: Abdomen is soft. Musculoskeletal: Right lower leg: No edema. Left lower leg: No edema. Comments: Splinted left hand Neurological: Mental Status: She is alert. Medications: Scheduled PRN Scheduled Meds[2] PRN Meds[3] Continuous Continuous Meds[4] Assessment Data: (CAT1) Reviewed 2 notes from different specialty or health system (each=1). (CAT1) Reviewed 2 labs/studies ordered by another provider not previously counted (each=1, panels count as 1). (LOW: 2x CAT1 or independent historian MOD: 3x CAT1 or 1x CAT3 EXTENSIVE: 3x CAT1 and 1x CAT3) Acute, acute on chronic, unstable/uncontrolled chronic problems/diagnoses: Generalized debility Recurrent falls Left leg pain- Improved Left leg severe osteoarthritis Hypothyroidism - TSH 40 MARY JANE - started on venofer ? Fx 4th proximal metatarsal right foot Fracture of the head of the fifth metacarpal left hand - present prior to admission, splint in place Sacral wound - present on admission Constipation Stable chronic problems affecting care, new non-acute diagnoses: Depression and anxiety CKD stage IIIb Asperger syndrome Debility HTN HLD Bipolar disorder Right foot laterally dislocated second MTP joint and laterally subluxed or dislocated first MTP joint Plan As a result of the above findings & factors, the following mgmt was pursued: - Continue with levothyroxine 136.5 mcg daily, will need repeat TSH in 4 weeks - hgb stable today 8.1, continue IV venofer, transfuse for hgb < 7 - wound care on consult -> cleanse with soap and water, apply ET mix TID and PRN, leave TANA. Turn and reposition q 2 hr, waffle chair cushion -senna 2 tabs bid. Miralax every day, supp prn. - PT/OT on consult -> recommend SNF on discharge - Plan [facility], pending Auth - regarding fifth metacarpal fx left hand - maintain splint, will need to follow ortho outpt. - am labs, replace lytes prn - PT/OT/CM/SW - delirium precautions: increase activity and limit nighttime disturbances - DVT prophylaxis: heparin and encourage ambulation Complexity: Acute illness or injury posing a threat to life or body function (HIGH). Risk: Prescription drug/IVF/colloid was initiated, discontinued, adjusted; or reviewed with decision to maintain current orders (MOD). Advance Directive: Full Code Anticipated Discharge - Date - medically stable - Location - Skilled Facility - Pending the following -DC today Total time spent (which include face to face and non face to face encounters) : More than 31 minutes Extended Emergency Contact Information Primary Emergency Contact: Pita Jara Mobile Relation: Parent Preferred language: Northern Irish Mechanism Inspector needed? No Secondary Emergency Contact: EstefaniMamadou Relation: Father Osbaldokashif Hima Hayes MD Division of Hospitalist Medicine [employer] [facility] [1] Past Medical History: Diagnosis Date Acid reflux Anxiety Arthritis Asperger syndrome Bipolar disorder (HCC) Chronic kidney disease stage 4 kidney failure Chronic pain Depression Edema of both legs GERD (gastroesophageal reflux disease) Hemorrhoids Hyperlipidemia Hypertension Hypothyroidism Iron (Fe) deficiency anemia Nephrogenic diabetes insipidus (HCC) Pain management Retention of urine, unspecified Sciatica SOB (shortness of breath) GRANT Type II or unspecified type diabetes mellitus without mention of complication, not stated as uncontrolled (HCC) Urinary incontinence nightly [2] acetaminophen, 1,000 mg, Oral, q8h buprenorphine, 1 patch, TransDERmal, Weekly divalproex, 250 mg, Oral, TID WC DULoxetine, 60 mg, Oral, Daily ergocalciferol, 1,250 mcg, Oral, Weekly ferrous sulfate, 325 mg, Oral, Daily with breakfast heparin, 5,000 Units, SubCUTAneous, 2 times per day lamoTRIgine, 150 mg, Oral, Nightly levothyroxine, 137.5 mcg, Oral, qAM AC miconazole, , Topical, BID pantoprazole, 40 mg, Oral, qAM AC polyethylene glycol (PEG) 3350, 17 g, Oral, Daily risperiDONE, 3 mg, Oral, Nightly rosuvastatin, 10 mg, Oral, Daily senna-docusate sodium, 2 tablet, Oral, BID sodium chloride 0.9%, 5-40 mL, IntraVENous, q12h stomahesive in petrolatum, , Topical, q8h traZODone, 200 mg, Oral, Nightly [3] PRN medications: bisacodyl, clonazePAM, melatonin, naloxone, ondansetron ODT OR ondansetron, oxyCODONE OR oxyCODONE, sodium chloride, sodium chloride 0.9%, stomahesive in petrolatum [4] Images from the original note were not included. PHYSICAL THERAPY [facility] Name/MRN: Jessy Mckeon ([id number]) Date: 01/14/2025 Therapy tx session attempted. Pt states "I would like to nap". Despite education and encouragement pt refuses (3x) activity this date. Heather Costa PTA Cosigned by Suzette Perez PT at 01/14/2025 2:42 PM EDT Hospitalist Progress Note 01/14/2025 Subjective: Admit Date: 12/30/2024 PCP: Edith Pierce MD Room#: [id number] A BRIEF HOSPITAL COURSE: Jessy is a 59 y.o. female with a PMH of anxiety, arthritis, asperger syndrome, bipolar disorder, CKD stage 4, chronic pain, depression, GERD, HLD, HTN, hypothyroidism, MARY JANE, T2DM that presented to the ED on 12/30/24 from [facility] for recurrent falls. Pt complained of pain in her suprapubic area. She reported decreased strength, she uses a rollator at baseline however past few days prior to coming to the ED she has had 5-6 falls. Reported she slid down from her chair. She was unsure if she hit her head. She complained of LLE pain. CT head was unremarkable, xray left knee severe tricompartmental osteoarthritis of the knee." Labs in the ED showed Na 135, BUN 15, creatinine 2.72, no leukocytosis, H/H 7.7/24.4, valproic acid level 48, UA not concerning for infection. Xray left hand showed Fracture of the head of the fifth metacarpal." Xray pelvis, left femur no acute process, Xray left tib/fib no acute process. Left foot xray showed "Possible fracture of the fourth proximal metatarsal. Severe hallux valgus deformity and soft tissue swelling." 01/02/25 pt had drop in hgb to 7.2 from 7.7. Pt denied signs of acute blood loss. Reported history of MARY JANE. Iron panel showed iron 37, sat 25.3, TIBC 146. IV venofer was started. Wound care following Case management following for placement Interval History: No overnight issues. Case and plan discussed with patient and bedside nurse. All questions answered. Stable in interval follow up. RN at bedside with no needs. Awaiting auth. Adult diet Regular 24HR INTAKE/OUTPUT: Intake/Output Summary (Last 24 hours) at 01/14/2025 0811 Last data filed at 01/14/2025 0552 Gross per 24 hour Intake -- Output 2400 ml Net -2400 ml Past Medical History: Medical History[1] LABS: CBC: Recent Labs 01/12/25 0504 01/13/25 0518 01/14/25 0604 WBC 5.9 5.2 4.9 RBC 2.39* 2.86* 2.79* HGB 7.7* 9.1* 8.9* HCT 24.0* 29.6* 28.7* MCV 100.4* 103.5* 102.9* RDW 17.2* 17.2* 17.2* PLT 241 268 248 BMP: Recent Labs 01/12/25 0504 01/13/25 0518 01/14/25 0604 NA 136 138 137 K 5.0 4.8 4.8 CL 104 104 104 CO2 24 26 26 BUN 41* 45* 41* CREATININE 2.53* 2.71* 2.63* GLUCOSE 76 86 83 CALCIUM 8.8 9.3 9.4 ANIONGAP 8 8 7 LIVER PROFILE:No results for input(s): "AST", "ALT", "BILITOT", "ALKPHOS", "PROT" in the last 72 hours. No lab exists for component: LABALBU PT/INR: No results for input(s): "PROTIME", "INR" in the last 72 hours. CARDIAC ENZYMES: No results for input(s): "TROPONINI" in the last 72 hours. Procalcitonin: No results found for: "PROCAL" COVID-19 PCR: No results for input(s): "COVID19" in the last 72 hours. Objective: Vitals: BP 123/69 (BP Location: Left arm, Patient Position: Sitting) Pulse 64 Temp 36.4 C (97.5 F) (Temporal) Resp 17 Ht 5' 2.99" (1.6 m) Wt 258 lb 3.2 oz (117 kg) SpO2 96% BMI 45.75 kg/m Pulse Ox: SpO2 Av.8 % Min: 95 % Max: 96 % Supplemental O2: Physical Exam Vitals and nursing note reviewed. Constitutional: General: She is not in acute distress. Appearance: Normal appearance. She is obese. Cardiovascular: Rate and Rhythm: Normal rate and regular rhythm. Heart sounds: Normal heart sounds. Pulmonary: Effort: Pulmonary effort is normal. Breath sounds: Normal breath sounds. No wheezing. Musculoskeletal: Right lower leg: No edema. Left lower leg: No edema. Comments: Splinted left hand Neurological: Mental Status: She is alert. Medications: Scheduled PRN Scheduled Meds[2] PRN Meds[3] Continuous Continuous Meds[4] Assessment Data: (CAT1) Reviewed 2 notes from different specialty or health system (each=1). (CAT1) Reviewed 2 labs/studies ordered by another provider not previously counted (each=1, panels count as 1). (LOW: 2x CAT1 or independent historian MOD: 3x CAT1 or 1x CAT3 EXTENSIVE: 3x CAT1 and 1x CAT3) Acute, acute on chronic, unstable/uncontrolled chronic problems/diagnoses: Generalized debility Recurrent falls Left leg pain- Improved Left leg severe osteoarthritis Hypothyroidism - TSH 40 MARY JANE - started on venofer ? Fx 4th proximal metatarsal right foot Fracture of the head of the fifth metacarpal left hand - present prior to admission, splint in place Sacral wound - present on admission Constipation Stable chronic problems affecting care, new non-acute diagnoses: Depression and anxiety CKD stage IIIb Asperger syndrome Debility HTN HLD Bipolar disorder Right foot laterally dislocated second MTP joint and laterally subluxed or dislocated first MTP joint Plan As a result of the above findings & factors, the following mgmt was pursued: - synthroid increased to 136.5 mcg daily , will need repeat TSH in 4 weeks - hgb stable today 7.1, continue IV venofer, transfuse for hgb < 7 - wound care on consult -> cleanse with soap and water, apply ET mix TID and PRN, leave GRAIN HANDLER. Turn and reposition q 2 hr, waffle chair cushion -senna 2 tabs bid. Miralax every day, supp prn. - PT/OT on consult -> recommend SNF on discharge - Plan [facility], chariing Auth - regarding fifth metacarpal fx left hand - maintain splint, will need to follow ortho outpt. - am labs, replace lytes prn - PT/OT/CM/SW - delirium precautions: increase activity and limit nighttime disturbances - DVT prophylaxis: heparin and encourage ambulation Complexity: Acute illness or injury posing a threat to life or body function (HIGH). Risk: Prescription drug/IVF/colloid was initiated, discontinued, adjusted; or reviewed with decision to maintain current orders (MOD). Advance Directive: Full Code Anticipated Discharge - Date - medically stable - Location - Skilled Facility - Pending the following - dispo coordination Total time spent (which include face to face and non face to face encounters) : 35 minutes Extended Emergency Contact Information Primary Emergency Contact: Pita Jara Mobile Relation: Parent Preferred language: Northern Irish Mechanism Inspector needed? No Secondary Emergency Contact: Mamadou Jara Relation: Father Trung Coppola DO [facility] [1] Past Medical History: Diagnosis Date Acid reflux Anxiety Arthritis Asperger syndrome Bipolar disorder (HCC) Chronic kidney disease stage 4 kidney failure Chronic pain Depression Edema of both legs GERD (gastroesophageal reflux disease) Hemorrhoids Hyperlipidemia Hypertension Hypothyroidism Iron (Fe) deficiency anemia Nephrogenic diabetes insipidus (HCC) Pain management Retention of urine, unspecified Sciatica SOB (shortness of breath) GRANT Type II or unspecified type diabetes mellitus without mention of complication, not stated as uncontrolled (HCC) Urinary incontinence nightly [2] acetaminophen, 1,000 mg, Oral, q8h buprenorphine, 1 patch, TransDERmal, Weekly divalproex, 250 mg, Oral, TID WC DULoxetine, 60 mg, Oral, Daily ergocalciferol, 1,250 mcg, Oral, Weekly ferrous sulfate, 325 mg, Oral, Daily with breakfast heparin, 5,000 Units, SubCUTAneous, 2 times per day lamoTRIgine, 150 mg, Oral, Nightly levothyroxine, 137.5 mcg, Oral, qAM AC miconazole, , Topical, BID pantoprazole, 40 mg, Oral, qAM AC polyethylene glycol (PEG) 3350, 17 g, Oral, Daily risperiDONE, 3 mg, Oral, Nightly rosuvastatin, 10 mg, Oral, Daily senna-docusate sodium, 2 tablet, Oral, BID sodium chloride 0.9%, 5-40 mL, IntraVENous, q12h stomahesive in petrolatum, , Topical, q8h traZODone, 200 mg, Oral, Nightly [3] PRN medications: bisacodyl, clonazePAM, melatonin, naloxone, ondansetron ODT OR ondansetron, oxyCODONE OR oxyCODONE, sodium chloride, sodium chloride 0.9%, stomahesive in petrolatum [4] Nutrition update completed. Chart reviewed. 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 Blanca Jackson DT Hospitalist Progress Note 01/13/2025 Subjective: Admit Date: 12/30/2024 PCP: Edith Pierce MD Room#: [id number] A BRIEF HOSPITAL COURSE: Jessy is a 59 y.o. female with a PMH of anxiety, arthritis, asperger syndrome, bipolar disorder, CKD stage 4, chronic pain, depression, GERD, HLD, HTN, hypothyroidism, MARY JANE, T2DM that presented to the ED on 12/30/24 from [facility] for recurrent falls. Pt complained of pain in her suprapubic area. She reported decreased strength, she uses a rollator at baseline however past few days prior to coming to the ED she has had 5-6 falls. Reported she slid down from her chair. She was unsure if she hit her head. She complained of LLE pain. CT head was unremarkable, xray left knee severe tricompartmental osteoarthritis of the knee." Labs in the ED showed Na 135, BUN 15, creatinine 2.72, no leukocytosis, H/H 7.7/24.4, valproic acid level 48, UA not concerning for infection. Xray left hand showed Fracture of the head of the fifth metacarpal." Xray pelvis, left femur no acute process, Xray left tib/fib no acute process. Left foot xray showed "Possible fracture of the fourth proximal metatarsal. Severe hallux valgus deformity and soft tissue swelling." 01/02/25 pt had drop in hgb to 7.2 from 7.7. Pt denied signs of acute blood loss. Reported history of MARY JANE. Iron panel showed iron 37, sat 25.3, TIBC 146. IV venofer was started. Wound care following Case management following for placement Interval History: No overnight issues. Case and plan discussed with patient and bedside nurse. All questions answered. Clinically stable. Awaiting auth. Adult diet Regular 24HR INTAKE/OUTPUT: Intake/Output Summary (Last 24 hours) at 01/13/2025 0909 Last data filed at 01/13/2025 0528 Gross per 24 hour Intake -- Output 2950 ml Net -2950 ml Past Medical History: Medical History[1] LABS: CBC: Recent Labs 01/11/2513401/12/25 0504 01/13/25 0518 WBC 7.8 5.9 5.2 RBC 2.46* 2.39* 2.86* HGB 7.8* 7.7* 9.1* HCT 24.9* 24.0* 29.6* MCV 101.2* 100.4* 103.5* RDW 16.8* 17.2* 17.2* PLT 250 241 268 BMP: Recent Labs 01/11/2513401/12/25 0504 01/13/25 0518 NA 127* 136 138 K 4.9 5.0 4.8 CL 99 104 104 CO2 24 24 26 BUN 41* 41* 45* CREATININE 2.35* 2.53* 2.71* GLUCOSE 87 76 86 CALCIUM 8.5 8.8 9.3 ANIONGAP 4 8 8 LIVER PROFILE:No results for input(s): "AST", "ALT", "BILITOT", "ALKPHOS", "PROT" in the last 72 hours. No lab exists for component: LABALBU PT/INR: No results for input(s): "PROTIME", "INR" in the last 72 hours. CARDIAC ENZYMES: No results for input(s): "TROPONINI" in the last 72 hours. Procalcitonin: No results found for: "PROCAL" COVID-19 PCR: No results for input(s): "COVID19" in the last 72 hours. Objective: Vitals: BP 105/52 (BP Location: Right arm) Pulse 66 Temp 36.1 C (96.9 F) (Temporal) Resp 17 Ht 5' 2.99" (1.6 m) Wt 258 lb 3.2 oz (117 kg) SpO2 98% BMI 45.75 kg/m Pulse Ox: SpO2 Av.5 % Min: 98 % Max: 99 % Supplemental O2: Physical Exam Vitals and nursing note reviewed. Constitutional: General: She is not in acute distress. Appearance: Normal appearance. She is obese. Cardiovascular: Rate and Rhythm: Normal rate and regular rhythm. Heart sounds: Normal heart sounds. Pulmonary: Effort: Pulmonary effort is normal. Breath sounds: Normal breath sounds. No wheezing. Musculoskeletal: Right lower leg: No edema. Left lower leg: No edema. Comments: Splinted left hand Neurological: Mental Status: She is alert. Medications: Scheduled PRN Scheduled Meds[2] PRN Meds[3] Continuous Continuous Meds[4] Assessment Data: (CAT1) Reviewed 2 notes from different specialty or health system (each=1). (CAT1) Reviewed 2 labs/studies ordered by another provider not previously counted (each=1, panels count as 1). (LOW: 2x CAT1 or independent historian MOD: 3x CAT1 or 1x CAT3 EXTENSIVE: 3x CAT1 and 1x CAT3) Acute, acute on chronic, unstable/uncontrolled chronic problems/diagnoses: Generalized debility Recurrent falls Left leg pain- Improved Left leg severe osteoarthritis Hypothyroidism - TSH 40 MARY JANE - started on venofer ? Fx 4th proximal metatarsal right foot Fracture of the head of the fifth metacarpal left hand - present prior to admission, splint in place Sacral wound - present on admission Constipation Stable chronic problems affecting care, new non-acute diagnoses: Depression and anxiety CKD stage IIIb Asperger syndrome Debility HTN HLD Bipolar disorder Right foot laterally dislocated second MTP joint and laterally subluxed or dislocated first MTP joint Plan As a result of the above findings & factors, the following mgmt was pursued: - synthroid increased to 136.5 mcg daily , will need repeat TSH in 4 weeks - hgb stable today 7.1, continue IV venofer, transfuse for hgb < 7 - wound care on consult -> cleanse with soap and water, apply ET mix TID and PRN, leave GRAIN HANDLER. Turn and reposition q 2 hr, waffle chair cushion -senna 2 tabs bid. Miralax every day, supp prn. - PT/OT on consult -> recommend SNF on discharge - Plan [facility], pending Auth - regarding fifth metacarpal fx left hand - maintain splint, will need to follow ortho outpt. - am labs, replace lytes prn - PT/OT/CM/SW - delirium precautions: increase activity and limit nighttime disturbances - DVT prophylaxis: heparin and encourage ambulation Complexity: Acute illness or injury posing a threat to life or body function (HIGH). Risk: Prescription drug/IVF/colloid was initiated, discontinued, adjusted; or reviewed with decision to maintain current orders (MOD). Advance Directive: Full Code Anticipated Discharge - Date - medically stable - Location - Skilled Facility - Pending the following - dispo coordination Total time spent (which include face to face and non face to face encounters) : 35 minutes Extended Emergency Contact Information Primary Emergency Contact: Pita Jara Mobile Relation: Parent Preferred language: [place] Mechanism Inspector needed? No Secondary Emergency Contact: Mamadou Jara Relation: Father Trung Coppola DO Division of Hospitalist Medicine [facility] [1] Past Medical History: Diagnosis Date Acid reflux Anxiety Arthritis Asperger syndrome Bipolar disorder (HCC) Chronic kidney disease stage 4 kidney failure Chronic pain Depression Edema of both legs GERD (gastroesophageal reflux disease) Hemorrhoids Hyperlipidemia Hypertension Hypothyroidism Iron (Fe) deficiency anemia Nephrogenic diabetes insipidus (HCC) Pain management Retention of urine, unspecified Sciatica SOB (shortness of breath) GRANT Type II or unspecified type diabetes mellitus without mention of complication, not stated as uncontrolled (HCC) Urinary incontinence nightly [2] acetaminophen, 1,000 mg, Oral, q8h buprenorphine, 1 patch, TransDERmal, Weekly divalproex, 250 mg, Oral, TID WC DULoxetine, 60 mg, Oral, Daily ergocalciferol, 1,250 mcg, Oral, Weekly ferrous sulfate, 325 mg, Oral, Daily with breakfast heparin, 5,000 Units, SubCUTAneous, 2 times per day lamoTRIgine, 150 mg, Oral, Nightly levothyroxine, 137.5 mcg, Oral, qAM AC miconazole, , Topical, BID pantoprazole, 40 mg, Oral, qAM AC polyethylene glycol (PEG) 3350, 17 g, Oral, Daily risperiDONE, 3 mg, Oral, Nightly rosuvastatin, 10 mg, Oral, Daily senna-docusate sodium, 2 tablet, Oral, BID sodium chloride 0.9%, 5-40 mL, IntraVENous, q12h stomahesive in petrolatum, , Topical, q8h traZODone, 200 mg, Oral, Nightly [3] PRN medications: bisacodyl, clonazePAM, melatonin, naloxone, ondansetron ODT OR ondansetron, oxyCODONE OR oxyCODONE, sodium chloride, sodium chloride 0.9%, stomahesive in petrolatum [4] Hospitalist Progress Note 01/12/2025 Subjective: Admit Date: 12/30/2024 PCP: Edith Pierce MD Room#: [id number] A BRIEF HOSPITAL COURSE: Jessy is a 59 y.o. female with a PMH of anxiety, arthritis, asperger syndrome, bipolar disorder, CKD stage 4, chronic pain, depression, GERD, HLD, HTN, hypothyroidism, MARY JANE, T2DM that presented to the ED on 12/30/24 from [facility] for recurrent falls. Pt complained of pain in her suprapubic area. She reported decreased strength, she uses a rollator at baseline however past few days prior to coming to the ED she has had 5-6 falls. Reported she slid down from her chair. She was unsure if she hit her head. She complained of LLE pain. CT head was unremarkable, xray left knee severe tricompartmental osteoarthritis of the knee." Labs in the ED showed Na 135, BUN 15, creatinine 2.72, no leukocytosis, H/H 7.7/24.4, valproic acid level 48, UA not concerning for infection. Xray left hand showed Fracture of the head of the fifth metacarpal." Xray pelvis, left femur no acute process, Xray left tib/fib no acute process. Left foot xray showed "Possible fracture of the fourth proximal metatarsal. Severe hallux valgus deformity and soft tissue swelling." 01/02/25 pt had drop in hgb to 7.2 from 7.7. Pt denied signs of acute blood loss. Reported history of MARY JANE. Iron panel showed iron 37, sat 25.3, TIBC 146. IV venofer was started. Wound care following Case management following for placement Interval History: No overnight issues. Case and plan discussed with patient and bedside nurse. All questions answered. No new sx. Resting comfortable. Breakfast at bedside. Awaiting auth. Adult diet Regular 24HR INTAKE/OUTPUT: Intake/Output Summary (Last 24 hours) at 01/12/2025 0942 Last data filed at 01/12/2025 0518 Gross per 24 hour Intake -- Output 3000 ml Net -3000 ml Past Medical History: Medical History[1] LABS: CBC: Recent Labs 01/10/256 01/11/25 01301/12/25 0504 WBC 8.1 7.8 5.9 RBC 2.54* 2.46* 2.39* HGB 7.8* 7.8* 7.7* HCT 25.4* 24.9* 24.0* MCV 100.0* 101.2* 100.4* RDW 16.5* 16.8* 17.2* PLT 269 250 241 BMP: Recent Labs 01/10/252501/11/2513401/12/25 0504 NA 131* 127* 136 K 5.1 4.9 5.0 CL 99 99 104 CO2 21* 24 24 BUN 35* 41* 41* CREATININE 2.46* 2.35* 2.53* GLUCOSE 91 87 76 CALCIUM 8.8 8.5 8.8 ANIONGAP 11 4 8 LIVER PROFILE:No results for input(s): "AST", "ALT", "BILITOT", "ALKPHOS", "PROT" in the last 72 hours. No lab exists for component: LABALBU PT/INR: No results for input(s): "PROTIME", "INR" in the last 72 hours. CARDIAC ENZYMES: No results for input(s): "TROPONINI" in the last 72 hours. Procalcitonin: No results found for: "PROCAL" COVID-19 PCR: No results for input(s): "COVID19" in the last 72 hours. Objective: Vitals: BP 111/74 (BP Location: Right arm) Pulse 74 Temp 36.5 C (97.7 F) (Temporal) Resp 20 Ht 5' 2.99" (1.6 m) Wt 258 lb 3.2 oz (117 kg) SpO2 92% BMI 45.75 kg/m Pulse Ox: SpO2 Av % Min: 92 % Max: 96 % Supplemental O2: Physical Exam Vitals and nursing note reviewed. Constitutional: General: She is not in acute distress. Appearance: Normal appearance. She is obese. Cardiovascular: Rate and Rhythm: Normal rate and regular rhythm. Heart sounds: Normal heart sounds. Pulmonary: Effort: Pulmonary effort is normal. Breath sounds: Normal breath sounds. No wheezing. Musculoskeletal: Right lower leg: No edema. Left lower leg: No edema. Comments: Splinted left hand Neurological: Mental Status: She is alert. Medications: Scheduled PRN Scheduled Meds[2] PRN Meds[3] Continuous Continuous Meds[4] Assessment Data: (CAT1) Reviewed 2 notes from different specialty or health system (each=1). (CAT1) Reviewed 2 labs/studies ordered by another provider not previously counted (each=1, panels count as 1). (LOW: 2x CAT1 or independent historian MOD: 3x CAT1 or 1x CAT3 EXTENSIVE: 3x CAT1 and 1x CAT3) Acute, acute on chronic, unstable/uncontrolled chronic problems/diagnoses: Generalized debility Recurrent falls Left leg pain- Improved Left leg severe osteoarthritis Hypothyroidism - TSH 40 MARY JANE - started on venofer ? Fx 4th proximal metatarsal right foot Fracture of the head of the fifth metacarpal left hand - present prior to admission, splint in place Sacral wound - present on admission Constipation Stable chronic problems affecting care, new non-acute diagnoses: Depression and anxiety CKD stage IIIb Asperger syndrome Debility HTN HLD Bipolar disorder Right foot laterally dislocated second MTP joint and laterally subluxed or dislocated first MTP joint Plan As a result of the above findings & factors, the following mgmt was pursued: - synthroid increased to 136.5 mcg daily , will need repeat TSH in 4 weeks - hgb stable today 7.1, continue IV venofer, transfuse for hgb < 7 - wound care on consult -> cleanse with soap and water, apply ET mix TID and PRN, leave TANA. Turn and reposition q 2 hr, waffle chair cushion -senna 2 tabs bid. Miralax every day, supp prn. - PT/OT on consult -> recommend SNF on discharge - Plan [facility], chariing Auth - regarding fifth metacarpal fx left hand - maintain splint, will need to follow ortho outpt. - am labs, replace lytes prn - PT/OT/CM/SW - delirium precautions: increase activity and limit nighttime disturbances - DVT prophylaxis: heparin and encourage ambulation Complexity: Acute illness or injury posing a threat to life or body function (HIGH). Risk: Prescription drug/IVF/colloid was initiated, discontinued, adjusted; or reviewed with decision to maintain current orders (MOD). Advance Directive: Full Code Anticipated Discharge - Date - medically stable - Location - Skilled Facility - Pending the following - dispo coordination Total time spent (which include face to face and non face to face encounters) : 36 minutes Extended Emergency Contact Information Primary Emergency Contact: Pita Jara Mobile Relation: Parent Preferred language: Northern Irish Mechanism Inspector needed? No Secondary Emergency Contact: Mamadou Jara Relation: Father Trung Coppola DO Division of Hospitalist Medicine [facility] [1] Past Medical History: Diagnosis Date Acid reflux Anxiety Arthritis Asperger syndrome Bipolar disorder (HCC) Chronic kidney disease stage 4 kidney failure Chronic pain Depression Edema of both legs GERD (gastroesophageal reflux disease) Hemorrhoids Hyperlipidemia Hypertension Hypothyroidism Iron (Fe) deficiency anemia Nephrogenic diabetes insipidus (HCC) Pain management Retention of urine, unspecified Sciatica SOB (shortness of breath) GRANT Type II or unspecified type diabetes mellitus without mention of complication, not stated as uncontrolled (HCC) Urinary incontinence nightly [2] acetaminophen, 1,000 mg, Oral, q8h buprenorphine, 1 patch, TransDERmal, Weekly divalproex, 250 mg, Oral, TID WC DULoxetine, 60 mg, Oral, Daily ergocalciferol, 1,250 mcg, Oral, Weekly ferrous sulfate, 325 mg, Oral, Daily with breakfast heparin, 5,000 Units, SubCUTAneous, 2 times per day lamoTRIgine, 150 mg, Oral, Nightly levothyroxine, 137.5 mcg, Oral, qAM AC miconazole, , Topical, BID pantoprazole, 40 mg, Oral, qAM AC polyethylene glycol (PEG) 3350, 17 g, Oral, Daily risperiDONE, 3 mg, Oral, Nightly rosuvastatin, 10 mg, Oral, Daily senna-docusate sodium, 2 tablet, Oral, BID sodium chloride 0.9%, 5-40 mL, IntraVENous, q12h stomahesive in petrolatum, , Topical, q8h traZODone, 200 mg, Oral, Nightly [3] PRN medications: bisacodyl, clonazePAM, melatonin, naloxone, ondansetron ODT OR ondansetron, oxyCODONE OR oxyCODONE, sodium chloride, sodium chloride 0.9%, stomahesive in petrolatum [4] Hospitalist Progress Note 01/11/2025 Subjective: Admit Date: 12/30/2024 PCP: Edith Pierce MD Room#: [id number] A BRIEF HOSPITAL COURSE: Jessy is a 59 y.o. female with a PMH of anxiety, arthritis, asperger syndrome, bipolar disorder, CKD stage 4, chronic pain, depression, GERD, HLD, HTN, hypothyroidism, MARY JANE, T2DM that presented to the ED on 12/30/24 from [facility] for recurrent falls. Pt complained of pain in her suprapubic area. She reported decreased strength, she uses a rollator at baseline however past few days prior to coming to the ED she has had 5-6 falls. Reported she slid down from her chair. She was unsure if she hit her head. She complained of LLE pain. CT head was unremarkable, xray left knee severe tricompartmental osteoarthritis of the knee." Labs in the ED showed Na 135, BUN 15, creatinine 2.72, no leukocytosis, H/H 7.7/24.4, valproic acid level 48, UA not concerning for infection. Xray left hand showed Fracture of the head of the fifth metacarpal." Xray pelvis, left femur no acute process, Xray left tib/fib no acute process. Left foot xray showed "Possible fracture of the fourth proximal metatarsal. Severe hallux valgus deformity and soft tissue swelling." 01/02/25 pt had drop in hgb to 7.2 from 7.7. Pt denied signs of acute blood loss. Reported history of MARY JANE. Iron panel showed iron 37, sat 25.3, TIBC 146. IV venofer was started. Wound care following Case management following for placement Interval History: No overnight issues. Case and plan discussed with patient and bedside nurse. All questions answered. Denies abd pain nausea or vomiting. Still awaiting BM. Passing gas. No new sx. Spoke with CM. Still awaiting auth. Adult diet Regular 24HR INTAKE/OUTPUT: Intake/Output Summary (Last 24 hours) at 01/11/2025 0989 Last data filed at 01/11/2025 0640 Gross per 24 hour Intake -- Output 2150 ml Net -2150 ml Past Medical History: Medical History[1] LABS: CBC: Recent Labs 01/09/2551001/10/252501/11/25 013 WBC 6.7 8.1 7.8 RBC 2.56* 2.54* 2.46* HGB 8.0* 7.8* 7.8* HCT 26.0* 25.4* 24.9* MCV 101.6* 100.0* 101.2* RDW 16.3* 16.5* 16.8* PLT 281 269 250 BMP: Recent Labs 01/09/2551001/10/252501/11/25134 NA 132* 131* 127* K 5.0 5.1 4.9 CL 102 99 99 CO2 24 21* 24 BUN 32* 35* 41* CREATININE 2.44* 2.46* 2.35* GLUCOSE 84 91 87 CALCIUM 8.7 8.8 8.5 ANIONGAP 6 11 4 LIVER PROFILE:No results for input(s): "AST", "ALT", "BILITOT", "ALKPHOS", "PROT" in the last 72 hours. No lab exists for component: LABALBU PT/INR: No results for input(s): "PROTIME", "INR" in the last 72 hours. CARDIAC ENZYMES: No results for input(s): "TROPONINI" in the last 72 hours. Procalcitonin: No results found for: "PROCAL" COVID-19 PCR: No results for input(s): "COVID19" in the last 72 hours. Objective: Vitals: BP 126/63 (BP Location: Right arm, Patient Position: Lying) Pulse 69 Temp 36.4 C (97.6 F) (Temporal) Resp 18 Ht 5' 2.99" (1.6 m) Wt 258 lb 3.2 oz (117 kg) SpO2 97% BMI 45.75 kg/m Pulse Ox: SpO2 Av % Min: 95 % Max: 97 % Supplemental O2: Physical Exam Vitals and nursing note reviewed. Constitutional: General: She is not in acute distress. Appearance: Normal appearance. She is obese. Cardiovascular: Rate and Rhythm: Normal rate and regular rhythm. Heart sounds: Normal heart sounds. Pulmonary: Effort: Pulmonary effort is normal. Breath sounds: Normal breath sounds. No wheezing. Musculoskeletal: Right lower leg: No edema. Left lower leg: No edema. Comments: Splinted left hand Neurological: Mental Status: She is alert. Medications: Scheduled PRN Scheduled Meds[2] PRN Meds[3] Continuous Continuous Meds[4] Assessment Data: (CAT1) Reviewed 2 notes from different specialty or health system (each=1). (CAT1) Reviewed 2 labs/studies ordered by another provider not previously counted (each=1, panels count as 1). (LOW: 2x CAT1 or independent historian MOD: 3x CAT1 or 1x CAT3 EXTENSIVE: 3x CAT1 and 1x CAT3) Acute, acute on chronic, unstable/uncontrolled chronic problems/diagnoses: Generalized debility Recurrent falls Left leg pain- Improved Left leg severe osteoarthritis Hypothyroidism - TSH 40 MARY JANE - started on venofer ? Fx 4th proximal metatarsal right foot Fracture of the head of the fifth metacarpal left hand - present prior to admission, splint in place Sacral wound - present on admission Constipation Stable chronic problems affecting care, new non-acute diagnoses: Depression and anxiety CKD stage IIIb Asperger syndrome Debility HTN HLD Bipolar disorder Right foot laterally dislocated second MTP joint and laterally subluxed or dislocated first MTP joint Plan As a result of the above findings & factors, the following mgmt was pursued: - synthroid increased to 136.5 mcg daily , will need repeat TSH in 4 weeks - hgb stable today 7.1, continue IV venofer, transfuse for hgb < 7 - wound care on consult -> cleanse with soap and water, apply ET mix TID and PRN, leave TANA. Turn and reposition q 2 hr, waffle chair cushion -senna 2 tabs bid. Miralax every day, supp prn. - PT/OT on consult -> recommend SNF on discharge - Plan for [facility] to [facility], pending Auth - regarding fifth metacarpal fx left hand - maintain splint, will need to follow ortho outpt. - am labs, replace lytes prn - PT/OT/CM/SW - delirium precautions: increase activity and limit nighttime disturbances - DVT prophylaxis: heparin and encourage ambulation Complexity: Acute illness or injury posing a threat to life or body function (HIGH). Risk: Prescription drug/IVF/colloid was initiated, discontinued, adjusted; or reviewed with decision to maintain current orders (MOD). Advance Directive: Full Code Anticipated Discharge - Date - medically stable - Location - Skilled Facility - Pending the following - dispo coordination Total time spent (which include face to face and non face to face encounters) : 36 minutes Extended Emergency Contact Information Primary Emergency Contact: EstefaniPita Mobile Relation: Parent Preferred language: Northern Irish Mechanism Inspector needed? No Secondary Emergency Contact: EstefaniMamadou Alamo Relation: Father Trung Coppola Division of Hospitalist Medicine [facility] [1] Past Medical History: Diagnosis Date Acid reflux Anxiety Arthritis Asperger syndrome Bipolar disorder (HCC) Chronic kidney disease stage 4 kidney failure Chronic pain Depression Edema of both legs GERD (gastroesophageal reflux disease) Hemorrhoids Hyperlipidemia Hypertension Hypothyroidism Iron (Fe) deficiency anemia Nephrogenic diabetes insipidus (HCC) Pain management Retention of urine, unspecified Sciatica SOB (shortness of breath) GRANT Type II or unspecified type diabetes mellitus without mention of complication, not stated as uncontrolled (HCC) Urinary incontinence nightly [2] acetaminophen, 1,000 mg, Oral, q8h buprenorphine, 1 patch, TransDERmal, Weekly divalproex, 250 mg, Oral, TID WC DULoxetine, 60 mg, Oral, Daily ergocalciferol, 1,250 mcg, Oral, Weekly ferrous sulfate, 325 mg, Oral, Daily with breakfast heparin, 5,000 Units, SubCUTAneous, 2 times per day lamoTRIgine, 150 mg, Oral, Nightly levothyroxine, 137.5 mcg, Oral, qAM AC miconazole, , Topical, BID pantoprazole, 40 mg, Oral, qAM AC polyethylene glycol (PEG) 3350, 17 g, Oral, Daily risperiDONE, 3 mg, Oral, Nightly rosuvastatin, 10 mg, Oral, Daily senna-docusate sodium, 2 tablet, Oral, BID sodium chloride 0.9%, 5-40 mL, IntraVENous, q12h stomahesive in petrolatum, , Topical, q8h traZODone, 200 mg, Oral, Nightly [3] PRN medications: bisacodyl, clonazePAM, melatonin, naloxone, ondansetron ODT OR ondansetron, oxyCODONE OR oxyCODONE, sodium chloride, sodium chloride 0.9%, stomahesive in petrolatum [4] Hospitalist Progress Note 01/10/2025 Subjective: Admit Date: 12/30/2024 PCP: Edith Pierce MD Room#: [id number]/[id number] A BRIEF HOSPITAL COURSE: Jessy is a 59 y.o. female with a PMH of anxiety, arthritis, asperger syndrome, bipolar disorder, CKD stage 4, chronic pain, depression, GERD, HLD, HTN, hypothyroidism, MARY JANE, T2DM that presented to the ED on 12/30/24 from [facility] for recurrent falls. Pt complained of pain in her suprapubic area. She reported decreased strength, she uses a rollator at baseline however past few days prior to coming to the ED she has had 5-6 falls. Reported she slid down from her chair. She was unsure if she hit her head. She complained of LLE pain. CT head was unremarkable, xray left knee severe tricompartmental osteoarthritis of the knee." Labs in the ED showed Na 135, BUN 15, creatinine 2.72, no leukocytosis, H/H 7.7/24.4, valproic acid level 48, UA not concerning for infection. Xray left hand showed Fracture of the head of the fifth metacarpal." Xray pelvis, left femur no acute process, Xray left tib/fib no acute process. Left foot xray showed "Possible fracture of the fourth proximal metatarsal. Severe hallux valgus deformity and soft tissue swelling." 01/02/25 pt had drop in hgb to 7.2 from 7.7. Pt denied signs of acute blood loss. Reported history of MARY JANE. Iron panel showed iron 37, sat 25.3, TIBC 146. IV venofer was started. Wound care following Case management following for placement Interval History: No overnight issues. Case and plan discussed with patient and bedside nurse. All questions answered. No clinical change. Still without BM. Discussed increasing bowel reg with pt and RN. Adult diet Regular 24HR INTAKE/OUTPUT: Intake/Output Summary (Last 24 hours) at 01/10/2025 0842 Last data filed at 01/10/2025 0648 Gross per 24 hour Intake 1410 ml Output 2800 ml Net -1390 ml Past Medical History: Medical History[1] LABS: CBC: Recent Labs 01/08/25 0045 01/09/25 0511 01/10/25 0026 WBC 7.5 6.7 8.1 RBC 2.51* 2.56* 2.54* HGB 7.9* 8.0* 7.8* HCT 24.7* 26.0* 25.4* MCV 98.4 101.6* 100.0* RDW 15.8* 16.3* 16.5* PLT 278 281 269 BMP: Recent Labs 01/08/25 0045 01/09/25 0511 01/10/25 0026 NA 134* 132* 131* K 5.0 5.0 5.1 CL 104 102 99 CO2 21* 24 21* BUN 33* 32* 35* CREATININE 2.27* 2.44* 2.46* GLUCOSE 82 84 91 CALCIUM 8.5 8.7 8.8 ANIONGAP 9 6 11 LIVER PROFILE:No results for input(s): "AST", "ALT", "BILITOT", "ALKPHOS", "PROT" in the last 72 hours. No lab exists for component: LABALBU PT/INR: No results for input(s): "PROTIME", "INR" in the last 72 hours. CARDIAC ENZYMES: No results for input(s): "TROPONINI" in the last 72 hours. Procalcitonin: No results found for: "PROCAL" COVID-19 PCR: No results for input(s): "COVID19" in the last 72 hours. Objective: Vitals: BP 114/68 (BP Location: Right arm, Patient Position: Sitting) Pulse 78 Temp 36.3 C (97.4 F) (Temporal) Resp 12 Ht 5' 2.99" (1.6 m) Wt 258 lb 3.2 oz (117 kg) SpO2 96% BMI 45.75 kg/m Pulse Ox: SpO2 Av % Min: 95 % Max: 97 % Supplemental O2: Physical Exam Vitals and nursing note reviewed. Constitutional: General: She is not in acute distress. Appearance: Normal appearance. She is obese. Cardiovascular: Rate and Rhythm: Normal rate and regular rhythm. Heart sounds: Normal heart sounds. Pulmonary: Effort: Pulmonary effort is normal. Breath sounds: Normal breath sounds. No wheezing. Musculoskeletal: Right lower leg: No edema. Left lower leg: No edema. Comments: Splinted left hand Neurological: Mental Status: She is alert. Medications: Scheduled PRN Scheduled Meds[2] PRN Meds[3] Continuous Continuous Meds[4] Assessment Data: (CAT1) Reviewed 2 notes from different specialty or health system (each=1). (CAT1) Reviewed 2 labs/studies ordered by another provider not previously counted (each=1, panels count as 1). (LOW: 2x CAT1 or independent historian MOD: 3x CAT1 or 1x CAT3 EXTENSIVE: 3x CAT1 and 1x CAT3) Acute, acute on chronic, unstable/uncontrolled chronic problems/diagnoses: Generalized debility Recurrent falls Left leg pain- Improved Left leg severe osteoarthritis Hypothyroidism - TSH 40 MARY JANE - started on venofer ? Fx 4th proximal metatarsal right foot Fracture of the head of the fifth metacarpal left hand - present prior to admission, splint in place Sacral wound - present on admission Constipation Stable chronic problems affecting care, new non-acute diagnoses: Depression and anxiety CKD stage IIIb Asperger syndrome Debility HTN HLD Bipolar disorder Right foot laterally dislocated second MTP joint and laterally subluxed or dislocated first MTP joint Plan As a result of the above findings & factors, the following mgmt was pursued: - synthroid increased to 136.5 mcg daily , will need repeat TSH in 4 weeks - hgb stable today 7.1, continue IV venofer, transfuse for hgb < 7 - wound care on consult -> cleanse with soap and water, apply ET mix TID and PRN, leave GRAIN HANDLER. Turn and reposition q 2 hr, waffle chair cushion -senna 2 tabs bid. Miralax every day, supp prn. - PT/OT on consult -> recommend SNF on discharge - Plan for [facility], pending Auth - regarding fifth metacarpal fx left hand - maintain splint, will need to follow ortho outpt. - am labs, replace lytes prn - PT/OT/CM/SW - delirium precautions: increase activity and limit nighttime disturbances - DVT prophylaxis: heparin and encourage ambulation Complexity: Acute illness or injury posing a threat to life or body function (HIGH). Risk: Prescription drug/IVF/colloid was initiated, discontinued, adjusted; or reviewed with decision to maintain current orders (MOD). Advance Directive: Full Code Anticipated Discharge - Date - medically stable - Location - Skilled Facility - Pending the following - dispo coordination Total time spent (which include face to face and non face to face encounters) : 36 minutes Extended Emergency Contact Information Primary Emergency Contact: EstefaniPita Mobile Relation: Parent Preferred language: Northern Irish Mechanism Inspector needed? No Secondary Emergency Contact: EstefaniMamadou Alamo Relation: Father Trung CoppolaDO Division of Hospitalist Medicine [facility] [1] Past Medical History: Diagnosis Date Acid reflux Anxiety Arthritis Asperger syndrome Bipolar disorder (HCC) Chronic kidney disease stage 4 kidney failure Chronic pain Depression Edema of both legs GERD (gastroesophageal reflux disease) Hemorrhoids Hyperlipidemia Hypertension Hypothyroidism Iron (Fe) deficiency anemia Nephrogenic diabetes insipidus (HCC) Pain management Retention of urine, unspecified Sciatica SOB (shortness of breath) GRANT Type II or unspecified type diabetes mellitus without mention of complication, not stated as uncontrolled (HCC) Urinary incontinence nightly [2] acetaminophen, 1,000 mg, Oral, q8h buprenorphine, 1 patch, TransDERmal, Weekly divalproex, 250 mg, Oral, TID WC DULoxetine, 60 mg, Oral, Daily ergocalciferol, 1,250 mcg, Oral, Weekly ferrous sulfate, 325 mg, Oral, Daily with breakfast heparin, 5,000 Units, SubCUTAneous, 2 times per day lamoTRIgine, 150 mg, Oral, Nightly levothyroxine, 137.5 mcg, Oral, qAM AC miconazole, , Topical, BID pantoprazole, 40 mg, Oral, qAM AC risperiDONE, 3 mg, Oral, Nightly rosuvastatin, 10 mg, Oral, Daily senna-docusate sodium, 2 tablet, Oral, Daily sodium chloride 0.9%, 5-40 mL, IntraVENous, q12h stomahesive in petrolatum, , Topical, q8h traZODone, 200 mg, Oral, Nightly [3] PRN medications: bisacodyl, clonazePAM, melatonin, naloxone, ondansetron ODT OR ondansetron, oxyCODONE OR oxyCODONE, polyethylene glycol (PEG) 3350, sodium chloride, sodium chloride 0.9%, stomahesive in petrolatum [4] Images from the original note were not included. PHYSICAL THERAPY [facility] Treatment Note Name/MRN: Jessy Mckeon ([id number]) Date of : 1965 Age: 59 y.o. Room[facility]Bed: [facility] A Discharge Recommendation: Snf Facility Prior Level of Function Prior Level of ADL Function: Required Assist Prior Level of Mobility: Required Assist; Device: Rollator Prior Level of Transfers: Required Assist Assessment Patient is progressing towards goals, most limited by fatigue, decreased endurance, and pain. Performs bed mobility with mod assist and transfers with min/mod assist. Ambulates short distance with FWW and mod assist, limited by pain. Demo's impulsively during session, cues for safety awareness. Patient is at risk of falls, recommend SNF level therapies at discharge. Subjective Supinje upon arrival, agreeable to PT. Cleared by RN for PT Pain: 0-10 pain scale: 5/10 Location: L knee and hand Medical Precautions: No active isolations Proper PPE donned/doffed in accordance with facility standards. Fall Risk: Shelton Fall Risk Score: 55 (High Risk) Precautions/Restrictions: Lines/Drains/Airways: purewick Fall Precautions Overall Cognitive Status: WFL Overall Orientation Status: Oriented x4 Family/Caregiver Present: none Objective Bed Mobility Supine to sit: Mod Assist Scooting: Min Assist HOB elevated, use of bed rail, cues for sequencing and technique. Increased time and effort to complete. Dizziness after sitting up, resolves after ~1-2 min Transfers/Mobility Sit to stand: Min Assist, Mod Assist Stand to sit: Min Assist, Mod Assist Stand step: Mod Assist Impulsive with mobility, sits impulsively at times and requires cues for stability and safety awareness. Cues for set up and technique Device(s) used: Front wheeled walker Ambulation Ambulation 1 Assistive device(s) used: Front wheeled walker Assist level: Mod Assist Distance (ft): 3ft x 2 Quality of gait: shuffling, wide MALDONADO, slow meenakshi, postural sway, path deviations. Patient quickly terminates gait and sits back down due to pain Balance During Session: Posture: fair Sitting - Static: SBA Sitting - Dynamic: Contact Guard Standing - Static: Min Assist Standing - Dynamic: Mod Assist, Max Assist Exercises Exercises Quad Sets: x10 BLE` Gluteal Sets: x10 Hip Flexion: x 10 reps seated B LE Hip Abduction: x 10 reps seated B LE Hip Adduction: x 10 reps seated B LE Knee Long Arc Quad: x 10 reps seated B LE Ankle Pumps: x 10 reps seated B LE Plan Continue acute PT per plan of care. Safety/Education Safety Safety Devices in place: All fall risk precautions in place, call light within reach, left in chair, gait belt, and nurse notified Restraints: No Education Transfers, gait, exercises, balance Outcome Measures AM-PAC AM-PAC Inpatient Mobility Raw Score (No Stairs) : 10 JH-HLM JH-HLM Score: Static standing (1 or more minutes) Goals Patient Stated Goal: to get home Encounter Problems Encounter Problems (Active) Mobility Patient will ambulate 50 feet with supervision and rolling walker in order to improve safety and independence with mobility. (Progressing) Start: 01/01/25 Expected End: 01/29/25 Pain - Adult Transfers Patient will perform bed mobility with supervision in order to improve independence and prepare for out of bed mobility. (Progressing) Start: 01/01/25 Expected End: 01/29/25 Patient will complete sit to stand transfer with supervision to walker in order to improve safety and prepare for out of bed mobility. (Progressing) Start: 01/01/25 Expected End: 01/29/25 Therapy Time Individual Co-treatment Time In 916 Time Out 0946 Minutes 29 Timed Code Treatment Minutes: 29 Minutes (FA, TP) Bisi Pitts PTA Cosigned by Aspen Evans PT at 01/09/2025 11:41 AM EDT Images from the original note were not included. OCCUPATIONAL THERAPY [facility] Treatment Note Name/MRN: Jessy Mckeon ([id number]) Date of : 1965 Age: 59 y.o. Room/Bed: W7-744/W7-744 A Discharge Recommendation: Snf Facility Equipment Needed: No Prior Level of Function Prior Level of ADL Function: Required Assist Prior Level of Mobility: Required Assist; CGA/SBARollator Prior Level of Transfers: Required Assist Assessment Pt currently needs assist for ADL, bed mobility, balance. Needs redirection for task completion. Suggest SNF level therapies at discharge. Subjective Pt in bed, poorly positioned (falling to left). Breakfast present, untouched. Pt agrees to OT. Pain: "the painkillers are helping" Medical Precautions: No active isolations Proper PPE donned/doffed in accordance with facility standards. Fall Risk: Shelton Fall Risk Score: 55 (High Risk) Family/Caregiver Present: none Objective ADLs Grooming: Min Assist UE Dressing: Min Assist UE Bathing: Min Assist Bed Mobility Supine to sit: Max Assist Sit to supine: Max Assist Scooting: Max Assist, x2 Person Assist, scoot to HOB in supine Transfers/Mobility Sitting balance: Mod Assist Plan Continue acute OT per plan of care. Safety/Education Safety Safety Devices in place: call light within reach, left in bed, and no alarms engaged upon entry Restraints: No Education Bed mobility, ADL Will need ongoing education. AM-PAC AM-PAC Inpatient Daily Activity Raw Score: 12 ADL Inpatient CMS G-Code Modifier: CL Goals Patient Stated Goal: No specific goal stated this session Encounter Problems Encounter Problems (Active) Balance Patient will maintain dynamic standing balance for 3 minutes with CGA in order to demonstrate decreased risk of falling. (Not Addressed) Start: 01/01/25 Expected End: 01/29/25 Bathing Patient will utilize adaptive techniques to bathe body with SBA. (Progressing) Start: 01/01/25 Expected End: 01/29/25 Dressing Upper Extremities Patient will complete upper body dressing with SBA. (Progressing) Start: 01/01/25 Expected End: 01/29/25 Dressings Lower Extremities Patient will dress lower body using adaptive strategies with SBA. (Not Addressed) Start: 01/01/25 Expected End: 01/29/25 Grooming Patient will complete daily grooming tasks while standing at sink with CGA. (Progressing) Start: 01/01/25 Expected End: 01/29/25 Mobility Patient will demonstrate functional ambulation using LRD with CGA. (Not Addressed) Start: 01/01/25 Expected End: 01/29/25 Toileting Patient will complete toileting tasks at standard toilet with CGA. (Not Addressed) Start: 01/01/25 Expected End: 01/29/25 Transfers Patient will complete functional transfer with least restrictive device with CGA in order to prepare for ambulation. (Not Addressed) Start: 01/01/25 Expected End: 01/29/25 Patient will perform bed mobility with modified independence in order to improve independence and prepare for out of bed mobility. (Progressing) Start: 01/01/25 Expected End: 01/29/25 Therapy Time Individual Co-treatment Time In 0845 Time Out 0909 Minutes 24 Timed Code Treatment Minutes: (Self--1; Funct--1) JOCY Hyde Cosigned by Wily Hendricks OT at 01/09/2025 1:47 PM EDT Hospitalist Progress Note 01/09/2025 Subjective: Admit Date: 12/30/2024 PCP: Edith Pierce MD Room#: [id number] A BRIEF HOSPITAL COURSE: Jessy is a 59 y.o. female with a PMH of anxiety, arthritis, asperger syndrome, bipolar disorder, CKD stage 4, chronic pain, depression, GERD, HLD, HTN, hypothyroidism, MARY JANE, T2DM that presented to the ED on 12/30/24 from [facility]isted Living Facility for recurrent falls. Pt complained of pain in her suprapubic area. She reported decreased strength, she uses a rollator at baseline however past few days prior to coming to the ED she has had 5-6 falls. Reported she slid down from her chair. She was unsure if she hit her head. She complained of LLE pain. CT head was unremarkable, xray left knee severe tricompartmental osteoarthritis of the knee." Labs in the ED showed Na 135, BUN 15, creatinine 2.72, no leukocytosis, H/H 7.7/24.4, valproic acid level 48, UA not concerning for infection. Xray left hand showed Fracture of the head of the fifth metacarpal." Xray pelvis, left femur no acute process, Xray left tib/fib no acute process. Left foot xray showed "Possible fracture of the fourth proximal metatarsal. Severe hallux valgus deformity and soft tissue swelling." 01/02/25 pt had drop in hgb to 7.2 from 7.7. Pt denied signs of acute blood loss. Reported history of MARY JANE. Iron panel showed iron 37, sat 25.3, TIBC 146. IV venofer was started. Wound care following Case management following for placement Interval History: No overnight issues. Case and plan discussed with patient and bedside nurse. All questions answered. Still no bm. Would like additional dose of lactulose. Otherwise clinically stable in interval follow up. Adult diet Regular 24HR INTAKE/OUTPUT: Intake/Output Summary (Last 24 hours) at 01/09/2025 0840 Last data filed at 01/09/2025 0600 Gross per 24 hour Intake -- Output 2450 ml Net -2450 ml Past Medical History: Medical History[1] LABS: CBC: Recent Labs 01/07/2552401/08/25 0045 01/09/25 0511 WBC 7.8 7.5 6.7 RBC 2.50* 2.51* 2.56* HGB 7.9* 7.9* 8.0* HCT 24.9* 24.7* 26.0* MCV 99.6* 98.4 101.6* RDW 15.5* 15.8* 16.3* PLT 282 278 281 BMP: Recent Labs 01/07/25 0525 01/08/25 0045 01/09/25 0511 NA 132* 134* 132* K 4.8 5.0 5.0 CL 103 104 102 CO2 22 21* 24 BUN 32* 33* 32* CREATININE 2.37* 2.27* 2.44* GLUCOSE 82 82 84 CALCIUM 8.4 8.5 8.7 ANIONGAP 7 9 6 LIVER PROFILE:No results for input(s): "AST", "ALT", "BILITOT", "ALKPHOS", "PROT" in the last 72 hours. No lab exists for component: LABALBU PT/INR: No results for input(s): "PROTIME", "INR" in the last 72 hours. CARDIAC ENZYMES: No results for input(s): "TROPONINI" in the last 72 hours. Procalcitonin: No results found for: "PROCAL" COVID-19 PCR: No results for input(s): "COVID19" in the last 72 hours. Objective: Vitals: BP 124/75 (BP Location: Right arm, Patient Position: Sitting) Pulse 71 Temp 36.4 C (97.5 F) (Temporal) Resp 12 Ht 5' 2.99" (1.6 m) Wt 258 lb 3.2 oz (117 kg) SpO2 94% BMI 45.75 kg/m Pulse Ox: SpO2 Av.5 % Min: 93 % Max: 94 % Supplemental O2: Physical Exam Vitals and nursing note reviewed. Constitutional: General: She is not in acute distress. Appearance: Normal appearance. She is obese. Cardiovascular: Rate and Rhythm: Normal rate and regular rhythm. Heart sounds: Normal heart sounds. Pulmonary: Effort: Pulmonary effort is normal. Breath sounds: Normal breath sounds. No wheezing. Musculoskeletal: Right lower leg: No edema. Left lower leg: No edema. Comments: Splinted left hand Neurological: Mental Status: She is alert. Medications: Scheduled PRN Scheduled Meds[2] PRN Meds[3] Continuous Continuous Meds[4] Assessment Data: (CAT1) Reviewed 2 notes from different specialty or health system (each=1). (CAT1) Reviewed 2 labs/studies ordered by another provider not previously counted (each=1, panels count as 1). (LOW: 2x CAT1 or independent historian MOD: 3x CAT1 or 1x CAT3 EXTENSIVE: 3x CAT1 and 1x CAT3) Acute, acute on chronic, unstable/uncontrolled chronic problems/diagnoses: Generalized debility Recurrent falls Left leg pain- Improved Left leg severe osteoarthritis Hypothyroidism - TSH 40 MARY JANE - started on venofer ? Fx 4th proximal metatarsal right foot Fracture of the head of the fifth metacarpal left hand - present prior to admission, splint in place Sacral wound - present on admission Constipation Stable chronic problems affecting care, new non-acute diagnoses: Depression and anxiety CKD stage IIIb Asperger syndrome Debility HTN HLD Bipolar disorder Right foot laterally dislocated second MTP joint and laterally subluxed or dislocated first MTP joint Plan As a result of the above findings & factors, the following mgmt was pursued: - synthroid increased to 136.5 mcg daily , will need repeat TSH in 4 weeks - hgb stable today 7.1, continue IV venofer, transfuse for hgb < 7 - wound care on consult -> cleanse with soap and water, apply ET mix TID and PRN, leave TANA. Turn and reposition q 2 hr, waffle chair cushion -Dulcolax suppository ordered - PT/OT on consult -> recommend SNF on discharge - Plan [facility], pending Auth - regarding fifth metacarpal fx left hand - maintain splint, will need to follow ortho outpt. - am labs, replace lytes prn - PT/OT/CM/SW - delirium precautions: increase activity and limit nighttime disturbances - DVT prophylaxis: heparin and encourage ambulation Complexity: Acute illness or injury posing a threat to life or body function (HIGH). Risk: Prescription drug/IVF/colloid was initiated, discontinued, adjusted; or reviewed with decision to maintain current orders (MOD). Advance Directive: Full Code Anticipated Discharge - Date - medically stable - Location - Skilled Facility - Pending the following - dispo coordination Total time spent (which include face to face and non face to face encounters) : 36 minutes Extended Emergency Contact Information Primary Emergency Contact: Pita Jara [employer] Relation: Parent Preferred language: Northern Irish Mechanism Inspector needed? No Secondary Emergency Contact: Oralia Jarary Relation: Father Trung CoppolaDO Division of Hospitalist Medicine [facility] [1] Past Medical History: Diagnosis Date Acid reflux Anxiety Arthritis Asperger syndrome Bipolar disorder (HCC) Chronic kidney disease stage 4 kidney failure Chronic pain Depression Edema of both legs GERD (gastroesophageal reflux disease) Hemorrhoids Hyperlipidemia Hypertension Hypothyroidism Iron (Fe) deficiency anemia Nephrogenic diabetes insipidus (HCC) Pain management Retention of urine, unspecified Sciatica SOB (shortness of breath) GRANT Type II or unspecified type diabetes mellitus without mention of complication, not stated as uncontrolled (HCC) Urinary incontinence nightly [2] acetaminophen, 1,000 mg, Oral, q8h buprenorphine, 1 patch, TransDERmal, Weekly divalproex, 250 mg, Oral, TID WC DULoxetine, 60 mg, Oral, Daily ergocalciferol, 1,250 mcg, Oral, Weekly ferrous sulfate, 325 mg, Oral, Daily with breakfast heparin, 5,000 Units, SubCUTAneous, 2 times per day lamoTRIgine, 150 mg, Oral, Nightly levothyroxine, 137.5 mcg, Oral, qAM AC miconazole, , Topical, BID pantoprazole, 40 mg, Oral, qAM AC risperiDONE, 3 mg, Oral, Nightly rosuvastatin, 10 mg, Oral, Daily senna-docusate sodium, 2 tablet, Oral, Daily sodium chloride 0.9%, 5-40 mL, IntraVENous, q12h stomahesive in petrolatum, , Topical, q8h traZODone, 200 mg, Oral, Nightly [3] PRN medications: bisacodyl, clonazePAM, melatonin, naloxone, ondansetron ODT OR ondansetron, oxyCODONE OR oxyCODONE, polyethylene glycol (PEG) 3350, sodium chloride, sodium chloride 0.9%, stomahesive in petrolatum [4] Nutrition Assessment Type and Reason for Visit: Reassess Nutrition Recommendations/Plan: Continue a Regular diet. Continue Ensure HP vanilla once daily. Weight stable. Pt is at low nutrition risk. Will sign off to DT at this time, RD is available upon request. Malnutrition Assessment: Malnutrition Status: No malnutrition (None suspected at this time) Context: Acute Illness Nutrition Assessment: 59yo F with PMHx T2DM, GERD, CKD 4, HTN, HLD, Chronic Pain, Asperger's Syndrome, Hypothyroidism, Bipolar Disorder and Depression who presented from her Assisted Living Facility for recurrent falls in the past few days. Pt has had 5-6 falls where she slid down from her chair, unsure if she hit her head. She reports pain to her LLE, suprapubic area and decreased strength. Uses a rollator at baseline to move around. Pt drowsy in ER, labs showed CKD. L Knee XRay showed severe OA. Admitted with general debility. PT/OT recommending SNF. Pt's Synthroid dose increased. Started on IV venofer for anemia. Pt remains medically stable for discharge pending level 2 review for PASRR to go to SNF. Continues on a regular diet eating >76% meals. RD visited pt this AM, she continues eating well without issues. Likes the [facility] Ensure HP once daily. Bed weight 258.2# which is near her UBW of 250#. Estimated Daily Nutrient Needs: Energy Requirements Based On: Kcal/kg Weight Used for Energy Requirements: [place] Weight for Energy Calculation (kg): 52 kg Total Energy Requirements (kcals/day): 25-30 kcal/kg = 6619-9590 kcal/day Weight Used for Protein Requirements: [place] Weight in Kg Used for Protein Requirements: 52 kg Estimated Total Protein (g/day): 0.8-1.0 g/kg = 41-52 g/day Estimated Daily Total Fluid (ml/day): per MD Nutrition Related Findings: Labs: Na 134, Cr 2.27, BG 99/129/82, Hgb 7.9, Meds: Lactulose, Synthroid Lives with: Other (Comment) (other resident ltf), Orientation Level: Oriented X4, , Best Verbal Response: Oriented, Patient Behaviors/Mood: Cooperative, Hyper-verbal Teeth: Missing teeth Feeding: Independent Room Service Room Service: Assist (may need help ordering meals) Adam Scale Score: 15. Wound Type: Pressure Injury, Stage III (Wound Care following for Left post thigh stage 3 pressure injury) Net IO Since Admission: -15,270 mL [01/08/25 1208] Gastrointestinal (WDL): Exceptions to WDL Bowel Sounds (All Quadrants): Present Abdomen Inspection: Soft, Rounded Last BM Date: 01/03/25, Stool Appearance: Other (Comment), Stool Color: Unable to assess Edema: , RUE Edema: None, LUE Edema: None, RLE Edema: Moderate pitting, indentation subsides rapidly, LLE Edema: Moderate pitting, indentation subsides rapidly Oxygen Therapy: None (Room air), , Current Nutrition Therapies: Adult diet Regular Current Oral Intake Average Meal Intake: 76-100% Average Supplements Intake: 76-100% Anthropometric Measures: Height: 160 cm (5' 2.99") Current Body Weight: 117 kg (258 lb 3.2 oz) (01/08 bed) Admission Body Weight: 113 kg (250 lb) (12/30 stated) Usual Body Weight: (Per chart: 12/28/24 240#, 11/15 300# stated, 10/04 288# bed, 08/09 260#, 06/14 276#, 09/04/23 245#) [place] Body Weight (lbs) (Calculated): 115 lbs [place] Body Weight (Kg) (Calculated): 52 kg % [place] Body Weight (Calculated): 258.1 % BMI (kg/m2) (Calculated): 45.7 Weight Adjustment For: No Adjustment BMI Categories: Obese Class 3 (BMI 40.0 or greater) Discharge Planning: No discharge needs at this time Flavia Wang RD Contact: *[phone] Hospitalist Progress Note 01/08/2025 Subjective: Admit Date: 12/30/2024 PCP: Edith Pierce MD Room#: [id number] A BRIEF HOSPITAL COURSE: Jessy is a 59 y.o. female with a PMH of anxiety, arthritis, asperger syndrome, bipolar disorder, CKD stage 4, chronic pain, depression, GERD, HLD, HTN, hypothyroidism, MARY JANE, T2DM that presented to the ED on 12/30/24 from Assisted Living Facility for recurrent falls. Pt complained of pain in her suprapubic area. She reported decreased strength, she uses a rollator at baseline however past few days prior to coming to the ED she has had 5-6 falls. Reported she slid down from her chair. She was unsure if she hit her head. She complained of LLE pain. CT head was unremarkable, xray left knee severe tricompartmental osteoarthritis of the knee." Labs in the ED showed Na 135, BUN 15, creatinine 2.72, no leukocytosis, H/H 7.7/24.4, valproic acid level 48, UA not concerning for infection. Xray left hand showed Fracture of the head of the fifth metacarpal." Xray pelvis, left femur no acute process, Xray left tib/fib no acute process. Left foot xray showed "Possible fracture of the fourth proximal metatarsal. Severe hallux valgus deformity and soft tissue swelling." 01/02/25 pt had drop in hgb to 7.2 from 7.7. Pt denied signs of acute blood loss. Reported history of MARY JANE. Iron panel showed iron 37, sat 25.3, TIBC 146. IV venofer was started. Wound care following Case management following for placement Interval History: No overnight issues. Case and plan discussed with patient and bedside nurse. All questions answered. Endorses constipation. Requesting a dose of lactulose. No other needs. Stable in interval. Essentially awaiting placement. Adult diet Regular 24HR INTAKE/OUTPUT: Intake/Output Summary (Last 24 hours) at 01/08/2025 0952 Last data filed at 01/08/2025 0831 Gross per 24 hour Intake -- Output 2700 ml Net -2700 ml Past Medical History: Medical History[1] LABS: CBC: Recent Labs 01/06/25 0136 01/07/25 0501/08/25 0045 WBC 8.5 7.8 7.5 RBC 2.36* 2.50* 2.51* HGB 7.4* 7.9* 7.9* HCT 23.3* 24.9* 24.7* MCV 98.7 99.6* 98.4 RDW 15.0 15.5* 15.8* PLT 303 282 278 BMP: Recent Labs 01/06/25 0136 01/07/25 0501/08/25 0045 NA 132* 132* 134* K 5.1 4.8 5.0 CL 101 103 104 CO2 22 22 21* BUN 30* 32* 33* CREATININE 2.19* 2.37* 2.27* GLUCOSE 79 82 82 CALCIUM 8.3* 8.4 8.5 ANIONGAP 9 7 9 LIVER PROFILE:No results for input(s): "AST", "ALT", "BILITOT", "ALKPHOS", "PROT" in the last 72 hours. No lab exists for component: LABALBU PT/INR: No results for input(s): "PROTIME", "INR" in the last 72 hours. CARDIAC ENZYMES: No results for input(s): "TROPONINI" in the last 72 hours. Procalcitonin: No results found for: "PROCAL" COVID-19 PCR: No results for input(s): "COVID19" in the last 72 hours. Objective: Vitals: BP (!) 159/103 (BP Location: Left arm, Patient Position: Sitting) Pulse 78 Temp 36.8 C (98.3 F) (Temporal) Resp 18 Ht 5' 2.99" (1.6 m) Wt 296 lb 12.8 oz (135 kg) SpO2 95% BMI 52.59 kg/m Pulse Ox: SpO2 Av.5 % Min: 95 % Max: 100 % Supplemental O2: Physical Exam Vitals and nursing note reviewed. Constitutional: General: She is not in acute distress. Appearance: Normal appearance. She is obese. Cardiovascular: Rate and Rhythm: Normal rate and regular rhythm. Heart sounds: Normal heart sounds. Pulmonary: Effort: Pulmonary effort is normal. Breath sounds: Normal breath sounds. No wheezing. Musculoskeletal: Right lower leg: No edema. Left lower leg: No edema. Comments: Splinted left hand Neurological: Mental Status: She is alert. Medications: Scheduled PRN Scheduled Meds[2] PRN Meds[3] Continuous Continuous Meds[4] Assessment Data: (CAT1) Reviewed 2 notes from different specialty or health system (each=1). (CAT1) Reviewed 2 labs/studies ordered by another provider not previously counted (each=1, panels count as 1). (LOW: 2x CAT1 or independent historian MOD: 3x CAT1 or 1x CAT3 EXTENSIVE: 3x CAT1 and 1x CAT3) Acute, acute on chronic, unstable/uncontrolled chronic problems/diagnoses: Generalized debility Recurrent falls Left leg pain- Improved Left leg severe osteoarthritis Hypothyroidism - TSH 40 MARY JANE - started on venofer ? Fx 4th proximal metatarsal right foot Fracture of the head of the fifth metacarpal left hand - present prior to admission, splint in place Sacral wound - present on admission Constipation Stable chronic problems affecting care, new non-acute diagnoses: Depression and anxiety CKD stage IIIb Asperger syndrome Debility HTN HLD Bipolar disorder Right foot laterally dislocated second MTP joint and laterally subluxed or dislocated first MTP joint Plan As a result of the above findings & factors, the following mgmt was pursued: - synthroid increased to 136.5 mcg daily , will need repeat TSH in 4 weeks - hgb stable today 7.1, continue IV venofer, transfuse for hgb < 7 - wound care on consult -> cleanse with soap and water, apply ET mix TID and PRN, leave GRAIN HANDLER. Turn and reposition q 2 hr, waffle chair cushion -Dulcolax suppository ordered - PT/OT on consult -> recommend SNF on discharge - Plan for [facility], pending Auth - regarding fifth metacarpal fx left hand - maintain splint, will need to follow ortho outpt. - am labs, replace lytes prn - PT/OT/CM/SW - delirium precautions: increase activity and limit nighttime disturbances - DVT prophylaxis: heparin and encourage ambulation Complexity: Acute illness or injury posing a threat to life or body function (HIGH). Risk: Prescription drug/IVF/colloid was initiated, discontinued, adjusted; or reviewed with decision to maintain current orders (MOD). Advance Directive: Full Code Anticipated Discharge - Date - medically stable - Location - Skilled Facility - Pending the following - dispo coordination Total time spent (which include face to face and non face to face encounters) : 36 minutes Extended Emergency Contact Information Primary Emergency Contact: Candice Jarady [employer] Relation: Parent Preferred language: Northern Irish Mechanism Inspector needed? No Secondary Emergency Contact: EstefaniMamadou [place]amo Relation: Father Trung Coppola Division of Hospitalist Medicine Acute care [facility] [1] Past Medical History: Diagnosis Date Acid reflux Anxiety Arthritis Asperger syndrome Bipolar disorder (HCC) Chronic kidney disease stage 4 kidney failure Chronic pain Depression Edema of both legs GERD (gastroesophageal reflux disease) Hemorrhoids Hyperlipidemia Hypertension Hypothyroidism Iron (Fe) deficiency anemia Nephrogenic diabetes insipidus (HCC) Pain management Retention of urine, unspecified Sciatica SOB (shortness of breath) GRANT Type II or unspecified type diabetes mellitus without mention of complication, not stated as uncontrolled (HCC) Urinary incontinence nightly [2] acetaminophen, 1,000 mg, Oral, q8h buprenorphine, 1 patch, TransDERmal, Weekly divalproex, 250 mg, Oral, TID WC DULoxetine, 60 mg, Oral, Daily ergocalciferol, 1,250 mcg, Oral, Weekly ferrous sulfate, 325 mg, Oral, Daily with breakfast heparin, 5,000 Units, SubCUTAneous, 2 times per day lamoTRIgine, 150 mg, Oral, Nightly levothyroxine, 137.5 mcg, Oral, qAM AC miconazole, , Topical, BID pantoprazole, 40 mg, Oral, qAM AC risperiDONE, 3 mg, Oral, Nightly rosuvastatin, 10 mg, Oral, Daily senna-docusate sodium, 2 tablet, Oral, Daily sodium chloride 0.9%, 5-40 mL, IntraVENous, q12h stomahesive in petrolatum, , Topical, q8h traZODone, 200 mg, Oral, Nightly [3] PRN medications: bisacodyl, clonazePAM, melatonin, naloxone, ondansetron ODT OR ondansetron, polyethylene glycol (PEG) 3350, sodium chloride, sodium chloride 0.9%, stomahesive in petrolatum [4] Images from the original note were not included. [facility] Progress Note Jessy Mckeon AGE: 59 y.o. GENDER: female : 1965 Subjective: HISTORY of PRESENT ILLNESS HPI Jessy Mckeon is a 59 y.o. female who presents for a wound care follow up. HPI: 59 y.o. female who presents to the emergency department for knee pain after a fall. Patient lives in an assisted living facility and has had multiple falls over the last week. EMS states that they have been with her 9 times in the last week just for multiple falls. She states today she slid out of her chair and hurt her left knee. She ambulates with a rollator at baseline. Denies any head injury. Wound Care consulted for sacral wound. Patient resting in bed. Denies any needs. Treatment applied prior to visit. PAST MEDICAL HISTORY Medical History[1] PAST SURGICAL HISTORY Surgical History[2] FAMILY HISTORY Family History[3] SOCIAL HISTORY Social History[4] ALLERGIES Allergies[5] MEDICATIONS Medications Ordered Prior to Encounter[6] REVIEW OF SYSTEMS Pertinent items are noted in HPI. Objective: BP (!) 159/103 (BP Location: Left arm, Patient Position: Sitting) Pulse 78 Temp 36.8 C (98.3 F) (Temporal) Resp 18 Ht 1.6 m (5' 2.99") Wt 117 kg (258 lb 3.2 oz) SpO2 95% BMI 45.75 kg/m PHYSICAL EXAM General appearance: in no apparent distress, in no respiratory distress and acyanotic, alert, and cooperative Skin: warm and dry Pulmonary: Normal effort, no respiratory distress, no cyanosis Abdomen: soft, nontender, and nondistended Extremities: warm and dry Sacrum - all tissue intact, blanchable, pink, fragile, peeling. Scar tissue noted. Left post thigh - scar tissue noted. 01/08/25 LABS CBC: Lab Results Component Value Date WBC 7.5 01/08/2025 HGB 7.9 (L) 01/08/2025 HCT 24.7 (L) 01/08/2025 MCV 98.4 01/08/2025 PLT 278 01/08/2025 BMP: Lab Results Component Value Date NA 134 (L) 01/08/2025 K 5.0 01/08/2025 CL 104 01/08/2025 CO2 21 (L) 01/08/2025 BUN 33 (H) 01/08/2025 CREATININE 2.27 (H) 01/08/2025 PT/INR: No results found for: "PROTIME", "INR" Prealbumin: No results found for: PREALBUMIN Albumin:No components found for: LABALBU Sed Rate:No results found for: SEDRATE Micro: No components found for: BC Assessment/Plan: Nursing staff to perform dressing change: Sacral MASD d/t friction/fluids/Left post thigh stage 3 pressure injury (POA): Resolved Continue for prevention -cleanse with soap and water, apply ET mix TID and PRN, leave GRAIN HANDLER -waffle chair cushion if up in chair -Q2hr/PRN turns -glide sheets for T&R -continence checks Q1-2 Hrs/PRN Wound care to sign off service at this time. Please re-consult if services are needed. Nutritional support Wound Care to follow Recommend to follow up at [facility] Out[facility] wound care center after hospital discharge. Any questions or concerns please secure chat "ACH wound/ostomy". Thank you for the consult! I personally obtained the pal and critical portions of the history and physical exam. I reviewed the labs, imaging studies, and electronic medical record. I reviewed the chart documentation and discussed the patient with treatment team members. I have edited the note to reflect my clinical findings and my assessment and plan. Please note, the time of this note does not reflect the time I saw this patient today, but the time of this documentaton. Portions of this note including HPI, ROS, impression/plan, and examination may have been copied forward from admission to today as to provide important historical information essential in contributing to medical decision making. Documentation has been reviewed and edited as necessary to support clinical decision making for today's visit and to reflect my own independent evaluation of this patient. Decision making for today's visit and to reflect my own independent evaluation of this patient. [1] Past Medical History: Diagnosis Date Acid reflux Anxiety Arthritis Asperger syndrome Bipolar disorder (HCC) Chronic kidney disease stage 4 kidney failure Chronic pain Depression Edema of both legs GERD (gastroesophageal reflux disease) Hemorrhoids Hyperlipidemia Hypertension Hypothyroidism Iron (Fe) deficiency anemia Nephrogenic diabetes insipidus (HCC) Pain management Retention of urine, unspecified Sciatica SOB (shortness of breath) GRANT Type II or unspecified type diabetes mellitus without mention of complication, not stated as uncontrolled (HCC) Urinary incontinence nightly [2] Past Surgical History: Procedure Laterality Date 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 CHOLECYSTECTOMY COLON SURGERY c-diff COLONOSCOPY 03/28/2018 no polyps UPPER GASTROINTESTINAL ENDOSCOPY 03/28/2018 [3] Family History Problem Relation Name Age of Onset Hypertension Mother Cancer Father Colon cancer Maternal Grandmother Cancer Brother [4] Social History Tobacco Use Smoking status: Former Smokeless tobacco: Never Vaping Use Vaping status: Never Used Substance Use Topics Alcohol use: No Alcohol/week: 0.0 standard drinks of alcohol Drug use: No [5] Allergies Allergen Reactions Antihistamines, Chlorpheniramine-Type Benztropine Disorientation and loss of muscle control Diphenhydramine Disorientation Nsaids CKD Stage 3 Other Anticholinergics: cause disorientation and loss of muscle control Venlafaxine Hives [6] No current facility-administered medications on file prior to encounter. Current Outpatient Medications on File Prior to Encounter Medication Sig Dispense Refill acetaminophen (Tylenol) 325 MG tablet Take by mouth. [] amoxicillin (Amoxil) 500 MG capsule Take 2 capsules (1,000 mg) by mouth every 12 hours for 10 days. 40 capsule 0 bisacodyl (Dulcolax) 10 MG suppository Insert into the rectum. divalproex (Depakote ER) 250 MG 24 hr tablet Take 1 tablet (250 mg) by mouth in the morning and 1 tablet (250 mg) at noon and 1 tablet (250 mg) in the evening. Take with meals. 90 tablet 2 DULoxetine (Cymbalta) [address] capsule Take 1 capsule (60 mg) by mouth daily. Do not crush or chew. 30 capsule 3 lamoTRIgine (LaMICtal) 150 MG tablet Take 1 tablet (150 mg) by mouth Nightly. 30 tablet 2 metoprolol tartrate (Lopressor) 100 MG tablet Take 1 tablet (100 mg) by mouth 2 times daily. 60 tablet 3 omeprazole (PriLOSEC) [address] capsule Take 1 capsule (40 mg) by mouth every morning (before breakfast). Do not crush or chew. 90 capsule 1 risperiDONE (RisperDAL) 3 MG tablet Take 1 tablet (3 mg) by mouth Nightly. 30 tablet 3 rosuvastatin (Crestor) 10 MG tablet TAKE 1 TABLET BY MOUTH DAILY 90 tablet 1 traZODone (Desyrel) 100 MG tablet Take 2 tablets (200 mg) by mouth Nightly. 60 tablet 3 buprenorphine (Butrans) 20 MCG/HR Place 1 patch on the skin. (Patient not taking: Reported on 12/30/2024) clonazePAM (KlonoPIN) 0.5 MG tablet Take 1 tablet (0.5 mg) by mouth 2 times daily as needed for anxiety. 60 tablet 1 epoetin molly-epbx (Retacrit) 81569 UNIT/ML injection Inject 10,000 Units under the skin. ergocalciferol (Vitamin D-2) 1.25 MG (44690 UT) capsule Take 1.25 mg by mouth 1 (one) time per week. furosemide (Lasix) 40 MG tablet Take 1 tablet (40 mg) by mouth daily. 30 tablet 1 hydrALAZINE (Apresoline) 25 MG tablet Take 1 tablet (25 mg) by mouth 3 times daily. 90 tablet 1 levothyroxine (Synthroid, Levoxyl) 125 MCG tablet Take 1 tablet (125 mcg) by mouth daily. Do not start before August 06, 2024. (Patient not taking: Reported on 12/30/2024) MELATONIN PO Take by mouth. nystatin (Mycostatin) 883569 UNIT/GM powder Apply topically 2 times daily. Apply to groin 60 g 0 polyethylene glycol, PEG, 3350 (Miralax) 17 g packet Take by mouth. Polysaccharide Iron Complex (IFEREX 150 PO) Take by mouth. Daily Caf-Mjz-Pmwvin Cosigned by Los Wilks DO at 01/14/2025 4:59 PM EDT Hospitalist Progress Note 01/07/2025 Subjective: Admit Date: 12/30/2024 PCP: Edith Pierce MD Room#: [id number] A BRIEF HOSPITAL COURSE: Jessy is a 59 y.o. female with a PMH of anxiety, arthritis, asperger syndrome, bipolar disorder, CKD stage 4, chronic pain, depression, GERD, HLD, HTN, hypothyroidism, MARY JANE, T2DM that presented to the ED on 12/30/24 from [facility] for recurrent falls. Pt complained of pain in her suprapubic area. She reported decreased strength, she uses a rollator at baseline however past few days prior to coming to the ED she has had 5-6 falls. Reported she slid down from her chair. She was unsure if she hit her head. She complained of LLE pain. CT head was unremarkable, xray left knee severe tricompartmental osteoarthritis of the knee." Labs in the ED showed Na 135, BUN 15, creatinine 2.72, no leukocytosis, H/H 7.7/24.4, valproic acid level 48, UA not concerning for infection. Xray left hand showed Fracture of the head of the fifth metacarpal." Xray pelvis, left femur no acute process, Xray left tib/fib no acute process. Left foot xray showed "Possible fracture of the fourth proximal metatarsal. Severe hallux valgus deformity and soft tissue swelling." 01/02/25 pt had drop in hgb to 7.2 from 7.7. Pt denied signs of acute blood loss. Reported history of MARYJ ANE. Iron panel showed iron 37, sat 25.3, TIBC 146. IV venofer was started. Wound care following Case management following for placement Interval History: No acute overnight changes Patient is seen and examined She is resting in her bed, NAD She reports no new acute complaints except constipation, wanted Dulcolax suppository, ordered Labs reviewed sodium 132, creatinine 2.37, relatively stable, hemoglobin 7.9 Case and plan discussed with patient and bedside nurse. All questions answered. Adult diet Regular 24HR INTAKE/OUTPUT: Intake/Output Summary (Last 24 hours) at 01/07/2025 1030 Last data filed at 01/07/2025 0205 Gross per 24 hour Intake 555 ml Output 1300 ml Net -745 ml Past Medical History: Medical History[1] LABS: CBC: Recent Labs 01/06/25 0136 01/07/25 0525 WBC 8.5 7.8 RBC 2.36* 2.50* HGB 7.4* 7.9* HCT 23.3* 24.9* MCV 98.7 99.6* RDW 15.0 15.5* PLT 303 282 BMP: Recent Labs 01/06/25 0136 01/07/25 0525 NA 132* 132* K 5.1 4.8 CL 101 103 CO2 22 22 BUN 30* 32* CREATININE 2.19* 2.37* GLUCOSE 79 82 CALCIUM 8.3* 8.4 ANIONGAP 9 7 LIVER PROFILE:No results for input(s): "AST", "ALT", "BILITOT", "ALKPHOS", "PROT" in the last 72 hours. No lab exists for component: LABALBU PT/INR: No results for input(s): "PROTIME", "INR" in the last 72 hours. CARDIAC ENZYMES: No results for input(s): "TROPONINI" in the last 72 hours. Procalcitonin: No results found for: "PROCAL" COVID-19 PCR: No results for input(s): "COVID19" in the last 72 hours. Objective: Vitals: BP 134/75 (BP Location: Right arm, Patient Position: Lying) Pulse 73 Temp 36.4 C (97.6 F) (Temporal) Resp 16 Ht 5' 2.99" (1.6 m) Wt 296 lb 12.8 oz (135 kg) SpO2 93% BMI 52.59 kg/m Pulse Ox: SpO2 Av % Min: 93 % Max: 97 % Supplemental O2: Physical Exam Constitutional: Appearance: She is obese. HENT: Head: Normocephalic and atraumatic. Mouth/Throat: Mouth: Mucous membranes are moist. Cardiovascular: Rate and Rhythm: Normal rate and regular rhythm. Pulmonary: Effort: Pulmonary effort is normal. Breath sounds: Normal breath sounds. Abdominal: General: Bowel sounds are normal. Palpations: Abdomen is soft. Musculoskeletal: Comments: Splint in place to left hand, ecchymosis noted to fingers, sensation intact Jennifer wrap in place to LLE Skin: General: Skin is warm. Neurological: Mental Status: She is alert and oriented to person, place, and time. Psychiatric: Mood and Affect: Mood normal. Medications: Scheduled PRN Scheduled Meds[2] PRN Meds[3] Continuous Continuous Meds[4] Assessment Data: (CAT1) Reviewed 2 notes from different specialty or health system (each=1). (CAT1) Reviewed 3 or more labs/studies previously ordered by me not previously counted (each=1, panels count as 1). (CAT1) Ordered 3 or more new labs and/or studies (each=1, panels count as 1). (LOW: 2x CAT1 or independent historian MOD: 3x CAT1 or 1x CAT3 EXTENSIVE: 3x CAT1 and 1x CAT3) Acute, acute on chronic, unstable/uncontrolled chronic problems/diagnoses: Generalized debility Recurrent falls Left leg pain- Improved Left leg severe osteoarthritis Hypothyroidism - TSH 40 MARY JANE - started on venofer ? Fx 4th proximal metatarsal right foot Fracture of the head of the fifth metacarpal left hand - present prior to admission, splint in place Sacral wound - present on admission Constipation Stable chronic problems affecting care, new non-acute diagnoses: Depression and anxiety CKD stage IIIb Asperger syndrome Debility HTN HLD Bipolar disorder Right foot laterally dislocated second MTP joint and laterally subluxed or dislocated first MTP joint Plan As a result of the above findings & factors, the following mgmt was pursued: - synthroid increased to 136.5 mcg daily , will need repeat TSH in 4 weeks - hgb stable today 7.1, continue IV venofer, transfuse for hgb < 7 - wound care on consult -> cleanse with soap and water, apply ET mix TID and PRN, leave GRAIN HANDLER. Turn and reposition q 2 hr, waffle chair cushion -Dulcolax suppository ordered - PT/OT on consult -> recommend SNF on discharge - Plan [facility], pending Auth - regarding fifth metacarpal fx left hand - maintain splint, will need to follow ortho outpt. - am labs, replace lytes prn - PT/OT/CM/SW - delirium precautions: increase activity and limit nighttime disturbances - DVT prophylaxis: heparin and encourage ambulation Advance Directive: Full Code Anticipated Discharge - Date -1 to 2 days - Location - SNF - Pending the following - above eval, clinical progress Total time spent (which include face to face and non face to face encounters) : 40.5 minutes Extended Emergency Contact Information Primary Emergency Contact: Pita Jara Mobile Relation: Parent Preferred language: Northern Irish Mechanism Inspector needed? No Secondary Emergency Contact: Mamadou Jara [place] Relation: Father Ashley Hima Hayes MD Division of Hospitalist Medicine [facility] [1] Past Medical History: Diagnosis Date Acid reflux Anxiety Arthritis Asperger syndrome Bipolar disorder (HCC) Chronic kidney disease stage 4 kidney failure Chronic pain Depression Edema of both legs GERD (gastroesophageal reflux disease) Hemorrhoids Hyperlipidemia Hypertension Hypothyroidism Iron (Fe) deficiency anemia Nephrogenic diabetes insipidus (HCC) Pain management Retention of urine, unspecified Sciatica SOB (shortness of breath) GRANT Type II or unspecified type diabetes mellitus without mention of complication, not stated as uncontrolled (HCC) Urinary incontinence nightly [2] acetaminophen, 1,000 mg, Oral, q8h buprenorphine, 1 patch, TransDERmal, Weekly divalproex, 250 mg, Oral, TID WC DULoxetine, 60 mg, Oral, Daily ergocalciferol, 1,250 mcg, Oral, Weekly ferrous sulfate, 325 mg, Oral, Daily with breakfast heparin, 5,000 Units, SubCUTAneous, 2 times per day lamoTRIgine, 150 mg, Oral, Nightly levothyroxine, 137.5 mcg, Oral, qAM AC miconazole, , Topical, BID pantoprazole, 40 mg, Oral, qAM AC risperiDONE, 3 mg, Oral, Nightly rosuvastatin, 10 mg, Oral, Daily senna-docusate sodium, 2 tablet, Oral, Daily sodium chloride 0.9%, 5-40 mL, IntraVENous, q12h stomahesive in petrolatum, , Topical, q8h traZODone, 200 mg, Oral, Nightly [3] PRN medications: clonazePAM, melatonin, naloxone, ondansetron ODT OR ondansetron, polyethylene glycol (PEG) 3350, sodium chloride, sodium chloride 0.9%, stomahesive in petrolatum [4] Hospitalist Progress Note 01/06/2025 Subjective: Admit Date: 12/30/2024 PCP: Edith Pierce MD Room#: [id number] A BRIEF HOSPITAL COURSE: Jessy is a 59 y.o. female with a PMH of anxiety, arthritis, asperger syndrome, bipolar disorder, CKD stage 4, chronic pain, depression, GERD, HLD, HTN, hypothyroidism, MARY JANE, T2DM that presented to the ED on 12/30/24 from [facility] for recurrent falls. Pt complained of pain in her suprapubic area. She reported decreased strength, she uses a rollator at baseline however past few days prior to coming to the ED she has had 5-6 falls. Reported she slid down from her chair. She was unsure if she hit her head. She complained of LLE pain. CT head was unremarkable, xray left knee severe tricompartmental osteoarthritis of the knee." Labs in the ED showed Na 135, BUN 15, creatinine 2.72, no leukocytosis, H/H 7.7/24.4, valproic acid level 48, UA not concerning for infection. Xray left hand showed Fracture of the head of the fifth metacarpal." Xray pelvis, left femur no acute process, Xray left tib/fib no acute process. Left foot xray showed "Possible fracture of the fourth proximal metatarsal. Severe hallux valgus deformity and soft tissue swelling." 01/02/25 pt had drop in hgb to 7.2 from 7.7. Pt denied signs of acute blood loss. Reported history of MARY JANE. Iron panel showed iron 37, sat 25.3, TIBC 146. IV venofer was started. Wound care following Case management following for placement Interval History: No acute overnight changes Patient is seen and examined Patient is comfortably resting in her bed, eating some food, denies any new acute complaints Labs reviewed sodium 132, creatinine 2.19, improving hemoglobin 7.4 Case and plan discussed with patient and bedside nurse. All questions answered. Adult diet Regular 24HR INTAKE/OUTPUT: Intake/Output Summary (Last 24 hours) at 01/06/2025 0924 Last data filed at 01/06/2025 0253 Gross per 24 hour Intake 905 ml Output 1800 ml Net -895 ml Past Medical History: Medical History[1] LABS: CBC: Recent Labs 01/06/25 0136 WBC 8.5 RBC 2.36* HGB 7.4* HCT 23.3* MCV 98.7 RDW 15.0 PLT 303 BMP: Recent Labs 01/06/25 0136 NA 132* K 5.1 CL 101 CO2 22 BUN 30* CREATININE 2.19* GLUCOSE 79 CALCIUM 8.3* ANIONGAP 9 LIVER PROFILE:No results for input(s): "AST", "ALT", "BILITOT", "ALKPHOS", "PROT" in the last 72 hours. No lab exists for component: LABALBU PT/INR: No results for input(s): "PROTIME", "INR" in the last 72 hours. CARDIAC ENZYMES: No results for input(s): "TROPONINI" in the last 72 hours. Procalcitonin: No results found for: "PROCAL" COVID-19 PCR: No results for input(s): "COVID19" in the last 72 hours. Objective: Vitals: BP 149/88 (BP Location: Left arm, Patient Position: Lying) Pulse 73 Temp 36.3 C (97.3 F) (Temporal) Resp 18 Ht 5' 2.99" (1.6 m) Wt 296 lb 12.8 oz (135 kg) SpO2 100% BMI 52.59 kg/m Pulse Ox: SpO2 Av % Min: 98 % Max: 100 % Supplemental O2: Physical Exam Constitutional: Appearance: She is obese. HENT: Head: Normocephalic and atraumatic. Mouth/Throat: Mouth: Mucous membranes are moist. Cardiovascular: Rate and Rhythm: Normal rate and regular rhythm. Pulmonary: Effort: Pulmonary effort is normal. Breath sounds: Normal breath sounds. Abdominal: General: Bowel sounds are normal. Palpations: Abdomen is soft. Musculoskeletal: Comments: Splint in place to left hand, ecchymosis noted to fingers, sensation intact Jennifer wrap in place to LLE Skin: General: Skin is warm. Neurological: Mental Status: She is alert and oriented to person, place, and time. Psychiatric: Mood and Affect: Mood normal. Medications: Scheduled PRN Scheduled Meds[2] PRN Meds[3] Continuous Continuous Meds[4] Assessment Data: (CAT1) Reviewed 2 notes from different specialty or health system (each=1). (CAT1) Reviewed 3 or more labs/studies previously ordered by me not previously counted (each=1, panels count as 1). (CAT1) Ordered 3 or more new labs and/or studies (each=1, panels count as 1). (LOW: 2x CAT1 or independent historian MOD: 3x CAT1 or 1x CAT3 EXTENSIVE: 3x CAT1 and 1x CAT3) Acute, acute on chronic, unstable/uncontrolled chronic problems/diagnoses: Generalized debility Recurrent falls Left leg pain- Improved Left leg severe osteoarthritis Hypothyroidism - TSH 40 MARY JANE - started on venofer ? Fx 4th proximal metatarsal right foot Fracture of the head of the fifth metacarpal left hand - present prior to admission, splint in place Sacral wound - present on admission Stable chronic problems affecting care, new non-acute diagnoses: Depression and anxiety CKD stage IIIb Asperger syndrome Debility HTN HLD Bipolar disorder Right foot laterally dislocated second MTP joint and laterally subluxed or dislocated first MTP joint Plan As a result of the above findings & factors, the following mgmt was pursued: - synthroid increased to 136.5 mcg daily , will need repeat TSH in 4 weeks - hgb stable today 7.1, continue IV venofer, transfuse for hgb < 7 - wound care on consult -> cleanse with soap and water, apply ET mix TID and PRN, leave TANA. Turn and reposition q 2 hr, waffle chair cushion - PT/OT on consult -> recommend SNF on discharge - Plan for [facility], pending Auth - regarding fifth metacarpal fx left hand - maintain splint, will need to follow ortho outpt. - am labs, replace lytes prn - PT/OT/CM/SW - delirium precautions: increase activity and limit nighttime disturbances - DVT prophylaxis: heparin and encourage ambulation Advance Directive: Full Code Anticipated Discharge - Date -1 to 2 days - Location - SNF - Pending the following - above eval, clinical progress Total time spent (which include face to face and non face to face encounters) : 36 minutes Extended Emergency Contact Information Primary Emergency Contact: Pita Jara Mobile Relation: Parent Preferred language: Northern Irish Mechanism Inspector needed? No Secondary Emergency Contact: Mamadou Jara Relation: Father Ashley Hima Hayes MD Division of Hospitalist Medicine [facility] [1] Past Medical History: Diagnosis Date Acid reflux Anxiety Arthritis Asperger syndrome Bipolar disorder (HCC) Chronic kidney disease stage 4 kidney failure Chronic pain Depression Edema of both legs GERD (gastroesophageal reflux disease) Hemorrhoids Hyperlipidemia Hypertension Hypothyroidism Iron (Fe) deficiency anemia Nephrogenic diabetes insipidus (HCC) Pain management Retention of urine, unspecified Sciatica SOB (shortness of breath) GRANT Type II or unspecified type diabetes mellitus without mention of complication, not stated as uncontrolled (HCC) Urinary incontinence nightly [2] acetaminophen, 1,000 mg, Oral, q8h buprenorphine, 1 patch, TransDERmal, Weekly divalproex, 250 mg, Oral, TID WC DULoxetine, 60 mg, Oral, Daily ergocalciferol, 1,250 mcg, Oral, Weekly ferrous sulfate, 325 mg, Oral, Daily with breakfast heparin, 5,000 Units, SubCUTAneous, 2 times per day lamoTRIgine, 150 mg, Oral, Nightly levothyroxine, 137.5 mcg, Oral, qAM AC miconazole, , Topical, BID pantoprazole, 40 mg, Oral, qAM AC risperiDONE, 3 mg, Oral, Nightly rosuvastatin, 10 mg, Oral, Daily senna-docusate sodium, 2 tablet, Oral, Daily sodium chloride 0.9%, 5-40 mL, IntraVENous, q12h stomahesive in petrolatum, , Topical, q8h traZODone, 200 mg, Oral, Nightly [3] PRN medications: clonazePAM, melatonin, naloxone, ondansetron ODT OR ondansetron, polyethylene glycol (PEG) 3350, sodium chloride, sodium chloride 0.9%, stomahesive in petrolatum [4] Hospitalist Progress Note 01/05/2025 Subjective: Admit Date: 12/30/2024 PCP: Edith Pierce MD Room#: [id number] A BRIEF HOSPITAL COURSE: Jessy is a 59 y.o. female with a PMH of anxiety, arthritis, asperger syndrome, bipolar disorder, CKD stage 4, chronic pain, depression, GERD, HLD, HTN, hypothyroidism, MARY JANE, T2DM that presented to the ED on 12/30/24 from [facility] for recurrent falls. Pt complained of pain in her suprapubic area. She reported decreased strength, she uses a rollator at baseline however past few days prior to coming to the ED she has had 5-6 falls. Reported she slid down from her chair. She was unsure if she hit her head. She complained of LLE pain. CT head was unremarkable, xray left knee severe tricompartmental osteoarthritis of the knee." Labs in the ED showed Na 135, BUN 15, creatinine 2.72, no leukocytosis, H/H 7.7/24.4, valproic acid level 48, UA not concerning for infection. Xray left hand showed Fracture of the head of the fifth metacarpal." Xray pelvis, left femur no acute process, Xray left tib/fib no acute process. Left foot xray showed "Possible fracture of the fourth proximal metatarsal. Severe hallux valgus deformity and soft tissue swelling." 01/02/25 pt had drop in hgb to 7.2 from 7.7. Pt denied signs of acute blood loss. Reported history of MARY JANE. Iron panel showed iron 37, sat 25.3, TIBC 146. IV venofer was started. Wound care following Interval History: No acute overnight changes Patient is seen and examined She is resting in her bed, not in acute distress, denies any new acute complaints Labs reviewed sodium 132, creatinine 2.3, hemoglobin 7.1 Case and plan discussed with patient and bedside nurse. All questions answered. Adult diet Regular 24HR INTAKE/OUTPUT: Intake/Output Summary (Last 24 hours) at 01/05/2025 1132 Last data filed at 01/05/2025 0556 Gross per 24 hour Intake 240 ml Output 2950 ml Net -2710 ml Past Medical History: Medical History[1] LABS: CBC: No results for input(s): "WBC", "RBC", "HGB", "HCT", "MCV", "RDW", "PLT" in the last 72 hours. BMP: No results for input(s): "NA", "K", "CL", "CO2", "BUN", "CREATININE", "GLUCOSE", "CALCIUM", "ANIONGAP" in the last 72 hours. LIVER PROFILE:No results for input(s): "AST", "ALT", "BILITOT", "ALKPHOS", "PROT" in the last 72 hours. No lab exists for component: LABALBU PT/INR: No results for input(s): "PROTIME", "INR" in the last 72 hours. CARDIAC ENZYMES: No results for input(s): "TROPONINI" in the last 72 hours. Procalcitonin: No results found for: "PROCAL" COVID-19 PCR: No results for input(s): "COVID19" in the last 72 hours. Objective: Vitals: BP 139/85 (BP Location: Left arm, Patient Position: Lying) Pulse 81 Temp 36.3 C (97.3 F) (Temporal) Resp 16 Ht 5' 2.99" (1.6 m) Wt 296 lb 12.8 oz (135 kg) SpO2 95% BMI 52.59 kg/m Pulse Ox: SpO2 Av % Min: 95 % Max: 99 % Supplemental O2: Physical Exam Constitutional: General: She is not in acute distress. Appearance: She is obese. Cardiovascular: Rate and Rhythm: Normal rate and regular rhythm. Pulmonary: Effort: Pulmonary effort is normal. Breath sounds: Normal breath sounds. Abdominal: General: Bowel sounds are normal. Palpations: Abdomen is soft. Musculoskeletal: Comments: Splint in place to left hand, ecchymosis noted to fingers, sensation intact Jennifer wrap in place to LLE Skin: General: Skin is warm. Neurological: Mental Status: She is alert and oriented to person, place, and time. Medications: Scheduled PRN Scheduled Meds[2] PRN Meds[3] Continuous Continuous Meds[4] Assessment Data: (CAT1) Reviewed 2 notes from different specialty or health system (each=1). (CAT1) Reviewed 3 or more labs/studies ordered by another provider not previously counted (each=1, panels count as 1). (CAT1) Ordered 3 or more new labs and/or studies (each=1, panels count as 1). (LOW: 2x CAT1 or independent historian MOD: 3x CAT1 or 1x CAT3 EXTENSIVE: 3x CAT1 and 1x CAT3) Acute, acute on chronic, unstable/uncontrolled chronic problems/diagnoses: Generalized debility Recurrent falls Left leg pain- Improved Left leg severe osteoarthritis Hypothyroidism - TSH 40 MARY JANE - started on venofer ? Fx 4th proximal metatarsal right foot Fracture of the head of the fifth metacarpal left hand - present prior to admission, splint in place Sacral wound - present on admission Stable chronic problems affecting care, new non-acute diagnoses: Depression and anxiety CKD stage IIIb Asperger syndrome Debility HTN HLD Bipolar disorder Right foot laterally dislocated second MTP joint and laterally subluxed or dislocated first MTP joint Plan As a result of the above findings & factors, the following mgmt was pursued: - synthroid increased to 136.5 mcg daily , will need repeat TSH in 4 weeks - hgb stable today 7.1, continue IV venofer, transfuse for hgb < 7 - wound care on consult -> cleanse with soap and water, apply ET mix TID and PRN, leave TANA. Turn and reposition q 2 hr, waffle chair cushion - PT/OT on consult -> recommend SNF on discharge - Plan for discharge to [facility] [place], pending Auth - regarding fifth metacarpal fx left hand - maintain splint, will need to follow ortho outpt. - am labs, replace lytes prn - PT/OT/CM/SW - delirium precautions: increase activity and limit nighttime disturbances - DVT prophylaxis: heparin and encourage ambulation Advance Directive: Full Code Anticipated Discharge - Date -1 to 2 days - Location - SNF - Pending the following - above eval, clinical progress Total time spent (which include face to face and non face to face encounters) : 40 minutes Extended Emergency Contact Information Primary Emergency Contact: Pita Jara Mobile Relation: Parent Preferred language: [place] Irish Mechanism Inspector needed? No Secondary Emergency Contact: Mamadou Jara Relation: Father Osbaldokashif Hima Hayes MD Division of Hospitalist Medicine [facility] [1] Past Medical History: Diagnosis Date Acid reflux Anxiety Arthritis Asperger syndrome Bipolar disorder (HCC) Chronic kidney disease stage 4 kidney failure Chronic pain Depression Edema of both legs GERD (gastroesophageal reflux disease) Hemorrhoids Hyperlipidemia Hypertension Hypothyroidism Iron (Fe) deficiency anemia Nephrogenic diabetes insipidus (HCC) Pain management Retention of urine, unspecified Sciatica SOB (shortness of breath) GRANT Type II or unspecified type diabetes mellitus without mention of complication, not stated as uncontrolled (HCC) Urinary incontinence nightly [2] acetaminophen, 1,000 mg, Oral, q8h buprenorphine, 1 patch, TransDERmal, Weekly divalproex, 250 mg, Oral, TID WC DULoxetine, 60 mg, Oral, Daily ergocalciferol, 1,250 mcg, Oral, Weekly ferrous sulfate, 325 mg, Oral, Daily with breakfast heparin, 5,000 Units, SubCUTAneous, 2 times per day iron sucrose, 200 mg, IntraVENous, q24h lamoTRIgine, 150 mg, Oral, Nightly levothyroxine, 137.5 mcg, Oral, qAM AC miconazole, , Topical, BID pantoprazole, 40 mg, Oral, qAM AC risperiDONE, 3 mg, Oral, Nightly rosuvastatin, 10 mg, Oral, Daily senna-docusate sodium, 2 tablet, Oral, Daily sodium chloride 0.9%, 5-40 mL, IntraVENous, q12h stomahesive in petrolatum, , Topical, q8h traZODone, 200 mg, Oral, Nightly [3] PRN medications: clonazePAM, melatonin, naloxone, ondansetron ODT OR ondansetron, polyethylene glycol (PEG) 3350, sodium chloride, sodium chloride 0.9%, stomahesive in petrolatum [4] Hospitalist Progress Note 01/04/2025 Subjective: Admit Date: 12/30/2024 PCP: Edith Pierce MD Room#: [id number] A BRIEF HOSPITAL COURSE: Jessy is a 59 y.o. female with a PMH of anxiety, arthritis, asperger syndrome, bipolar disorder, CKD stage 4, chronic pain, depression, GERD, HLD, HTN, hypothyroidism, MARY JANE, T2DM that presented to the ED on 12/30/24 from [facility] for recurrent falls. Pt complained of pain in her suprapubic area. She reported decreased strength, she uses a rollator at baseline however past few days prior to coming to the ED she has had 5-6 falls. Reported she slid down from her chair. She was unsure if she hit her head. She complained of LLE pain. CT head was unremarkable, xray left knee severe tricompartmental osteoarthritis of the knee." Labs in the ED showed Na 135, BUN 15, creatinine 2.72, no leukocytosis, H/H 7.7/24.4, valproic acid level 48, UA not concerning for infection. Xray left hand showed Fracture of the head of the fifth metacarpal." Xray pelvis, left femur no acute process, Xray left tib/fib no acute process. Left foot xray showed "Possible fracture of the fourth proximal metatarsal. Severe hallux valgus deformity and soft tissue swelling." 01/02/25 pt had drop in hgb to 7.2 from 7.7. Pt denied signs of acute blood loss. Reported history of MARY JANE. Iron panel showed iron 37, sat 25.3, TIBC 146. IV venofer was started. Interval History: Pt seen and evaluated lying in bed. Splint intact to LUE. Pt reports this injury was from previous fall. She is fixated on her elevated TSH today, reviewed with her the increase in her synthroid and need for repeat TSH in 4 weeks. Waiting for auth for discharge to SNF. No overnight issues. Case and plan discussed with patient and bedside nurse. All questions answered. Adult diet Regular 24HR INTAKE/OUTPUT: Intake/Output Summary (Last 24 hours) at 01/04/2025 1138 Last data filed at 01/04/2025 0951 Gross per 24 hour Intake 240 ml Output 2000 ml Net -1760 ml Past Medical History: Medical History[1] LABS: CBC: Recent Labs 01/02/25 0103 WBC 7.5 RBC 2.28* HGB 7.1* HCT 21.9* MCV 96.1 RDW 14.1 PLT 303 BMP: Recent Labs 01/02/25 0103 NA 132* K 4.2 CL 102 CO2 21* BUN 14 CREATININE 2.30* GLUCOSE 75 CALCIUM 8.0* ANIONGAP 9 LIVER PROFILE:No results for input(s): "AST", "ALT", "BILITOT", "ALKPHOS", "PROT" in the last 72 hours. No lab exists for component: LABALBU PT/INR: No results for input(s): "PROTIME", "INR" in the last 72 hours. CARDIAC ENZYMES: No results for input(s): "TROPONINI" in the last 72 hours. Procalcitonin: No results found for: "PROCAL" COVID-19 PCR: No results for input(s): "COVID19" in the last 72 hours. Objective: Vitals: BP 142/86 (BP Location: Left arm, Patient Position: Lying) Pulse 78 Temp 36.7 C (98.1 F) (Temporal) Resp 18 Ht 5' 2.99" (1.6 m) Wt 296 lb 12.8 oz (135 kg) SpO2 99% BMI 52.59 kg/m Pulse Ox: SpO2 Av % Min: 99 % Max: 99 % Supplemental O2: Physical Exam Constitutional: General: She is not in acute distress. Appearance: She is obese. Cardiovascular: Rate and Rhythm: Normal rate and regular rhythm. Pulmonary: Effort: Pulmonary effort is normal. Breath sounds: Normal breath sounds. Abdominal: General: Bowel sounds are normal. Palpations: Abdomen is soft. Musculoskeletal: Comments: Splint in place to left hand, ecchymosis noted to fingers, sensation intact Jennifer wrap in place to LLE Skin: General: Skin is warm. Neurological: Mental Status: She is alert and oriented to person, place, and time. Medications: Scheduled PRN Scheduled Meds[2] PRN Meds[3] Continuous Continuous Meds[4] Assessment Data: (CAT1) Reviewed 1 notes from different specialty or health system (each=1). (CAT1) Reviewed 2 labs/studies ordered by another provider not previously counted (each=1, panels count as 1). (LOW: 2x CAT1 or independent historian MOD: 3x CAT1 or 1x CAT3 EXTENSIVE: 3x CAT1 and 1x CAT3) Acute, acute on chronic, unstable/uncontrolled chronic problems/diagnoses: Generalized debility Recurrent falls Left leg pain- Improved Left leg severe osteoarthritis Hypothyroidism - TSH 40 MARY JANE - started on venofer ? Fx 4th proximal metatarsal right foot Fracture of the head of the fifth metacarpal left hand - present prior to admission, splint in place Sacral wound - present on admission Stable chronic problems affecting care, new non-acute diagnoses: Depression and anxiety CKD stage IIIb Asperger syndrome Debility HTN HLD Bipolar disorder Right foot laterally dislocated second MTP joint and laterally subluxed or dislocated first MTP joint Plan As a result of the above findings & factors, the following mgmt was pursued: - synthroid increased to 136.5 mcg daily , will need repeat TSH in 4 weeks - hgb stable today 7.1, continue IV venofer, transfuse for hgb < 7 - wound care on consult -> cleanse with soap and water, apply ET mix TID and PRN, leave TANA. Turn and reposition q 2 hr, waffle chair cushion - PT/OT on consult -> recommend SNF on discharge - Plan for [facility] to [facility], pending Auth - regarding fifth metacarpal fx left hand - maintain splint, will need to follow ortho outpt. - am labs, replace lytes prn - PT/OT/CM/SW - delirium precautions: increase activity and limit nighttime disturbances - DVT prophylaxis: heparin and encourage ambulation Advance Directive: Full Code Anticipated Discharge - Date - 01/05? - Location - SNF - Pending the following - above eval, clinical progress Total time spent (which include face to face and non face to face encounters) : 45 minutes Extended Emergency Contact Information Primary Emergency Contact: Pita Jara Mobile Relation: Parent Preferred language: Northern Irish Mechanism Inspector needed? No Secondary Emergency Contact: Mamadou Jara Relation: Father VENTURA Jordan CNP Division of Hospitalist Medicine [facility] [1] Past Medical History: Diagnosis Date Acid reflux Anxiety Arthritis Asperger syndrome Bipolar disorder (HCC) Chronic kidney disease stage 4 kidney failure Chronic pain Depression Edema of both legs GERD (gastroesophageal reflux disease) Hemorrhoids Hyperlipidemia Hypertension Hypothyroidism Iron (Fe) deficiency anemia Nephrogenic diabetes insipidus (HCC) Pain management Retention of urine, unspecified Sciatica SOB (shortness of breath) GRANT Type II or unspecified type diabetes mellitus without mention of complication, not stated as uncontrolled (HCC) Urinary incontinence nightly [2] acetaminophen, 1,000 mg, Oral, q8h buprenorphine, 1 patch, TransDERmal, Weekly divalproex, 250 mg, Oral, TID WC DULoxetine, 60 mg, Oral, Daily ergocalciferol, 1,250 mcg, Oral, Weekly ferrous sulfate, 325 mg, Oral, Daily with breakfast heparin, 5,000 Units, SubCUTAneous, 2 times per day iron sucrose, 200 mg, IntraVENous, q24h lamoTRIgine, 150 mg, Oral, Nightly levothyroxine, 137.5 mcg, Oral, qAM AC miconazole, , Topical, BID pantoprazole, 40 mg, Oral, qAM AC risperiDONE, 3 mg, Oral, Nightly rosuvastatin, 10 mg, Oral, Daily senna-docusate sodium, 2 tablet, Oral, Daily sodium chloride 0.9%, 5-40 mL, IntraVENous, q12h stomahesive in petrolatum, , Topical, q8h traZODone, 200 mg, Oral, Nightly [3] PRN medications: clonazePAM, melatonin, naloxone, ondansetron ODT OR ondansetron, polyethylene glycol (PEG) 3350, sodium chloride, sodium chloride 0.9%, stomahesive in petrolatum [4] Images from the original note were not included. [facility] Progress Note Jessy Mckeon AGE: 59 y.o. GENDER: female : 1965 Subjective: HISTORY of PRESENT ILLNESS HPI Jessy Mckeon is a 59 y.o. female who presents for a wound care follow up. HPI: 59 y.o. female who presents to the emergency department for knee pain after a fall. Patient lives in an assisted living facility and has had multiple falls over the last week. EMS states that they have been with her 9 times in the last week just for multiple falls. She states today she slid out of her chair and hurt her left knee. She ambulates with a rollator at baseline. Denies any head injury. Wound Care consulted for sacral wound. Patient resting in bed at time of visit. ET mix noted at bedside. Treatment completed. PAST MEDICAL HISTORY Medical History[1] PAST SURGICAL HISTORY Surgical History[2] FAMILY HISTORY Family History[3] SOCIAL HISTORY Social History[4] ALLERGIES Allergies[5] MEDICATIONS Medications Ordered Prior to Encounter[6] REVIEW OF SYSTEMS Pertinent items are noted in HPI. Objective: BP 142/86 (BP Location: Left arm, Patient Position: Lying) Pulse 78 Temp 36.7 C (98.1 F) (Temporal) Resp 18 Ht 1.6 m (5' 2.99") Wt 135 kg (296 lb 12.8 oz) SpO2 99% BMI 52.59 kg/m PHYSICAL EXAM General appearance: in no apparent distress, in no respiratory distress and acyanotic, alert, and cooperative Skin: warm and dry Pulmonary: Normal effort, no respiratory distress, no cyanosis Abdomen: soft, nontender, and nondistended Extremities: warm and dry Sacrum - all tissue intact, blanchable, pink, fragile, peeling Left post thigh - 3.0 x 3.0 x 0.1cm - cluster of 4 wounds with full thickness tissue loss into subcutaneous tissue, kayley wound tissue intact Stable 01/02/25 LABS CBC: Lab Results Component Value Date WBC 7.5 01/02/2025 HGB 7.1 (L) 01/02/2025 HCT 21.9 (L) 01/02/2025 MCV 96.1 01/02/2025 PLT 303 01/02/2025 BMP: Lab Results Component Value Date NA 132 (L) 01/02/2025 K 4.2 01/02/2025 CL 102 01/02/2025 CO2 21 (L) 01/02/2025 BUN 14 01/02/2025 CREATININE 2.30 (H) 01/02/2025 PT/INR: No results found for: "PROTIME", "INR" Prealbumin: No results found for: PREALBUMIN Albumin:No components found for: LABALBU Sed Rate:No results found for: SEDRATE Micro: No components found for: BC Assessment/Plan: Nursing staff to perform dressing change: Sacral MASD d/t friction/fluids/Left post thigh stage 3 pressure injury (POA): -cleanse with soap and water, apply ET mix TID and PRN, leave TANA -waffle chair cushion if up in chair -Q2hr/PRN turns -glide sheets for T&R -continence checks Q1-2 Hrs/PRN Nutritional support Wound Care to follow Recommend to follow up at [facility] care center after hospital discharge. Any questions or concerns please secure chat "ACH wound/ostomy". Thank you for the consult! I personally obtained the pal and critical portions of the history and physical exam. I reviewed the labs, imaging studies, and electronic medical record. I reviewed the chart documentation and discussed the patient with treatment team members. I have edited the note to reflect my clinical findings and my assessment and plan. Please note, the time of this note does not reflect the time I saw this patient today, but the time of this documentaton. Portions of this note including HPI, ROS, impression/plan, and examination may have been copied forward from admission to today as to provide important historical information essential in contributing to medical decision making. Documentation has been reviewed and edited as necessary to support clinical decision making for today's visit and to reflect my own independent evaluation of this patient. Decision making for today's visit and to reflect my own independent evaluation of this patient. [1] Past Medical History: Diagnosis Date Acid reflux Anxiety Arthritis Asperger syndrome Bipolar disorder (HCC) Chronic kidney disease stage 4 kidney failure Chronic pain Depression Edema of both legs GERD (gastroesophageal reflux disease) Hemorrhoids Hyperlipidemia Hypertension Hypothyroidism Iron (Fe) deficiency anemia Nephrogenic diabetes insipidus (HCC) Pain management Retention of urine, unspecified Sciatica SOB (shortness of breath) GRANT Type II or unspecified type diabetes mellitus without mention of complication, not stated as uncontrolled (HCC) Urinary incontinence nightly [2] Past Surgical History: Procedure Laterality Date 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 CHOLECYSTECTOMY COLON SURGERY c-diff COLONOSCOPY 03/28/2018 no polyps UPPER GASTROINTESTINAL ENDOSCOPY 03/28/2018 [3] Family History Problem Relation Name Age of Onset Hypertension Mother Cancer Father Colon cancer Maternal Grandmother Cancer Brother [4] Social History Tobacco Use Smoking status: Former Smokeless tobacco: Never Vaping Use Vaping status: Never Used Substance Use Topics Alcohol use: No Alcohol/week: 0.0 standard drinks of alcohol Drug use: No [5] Allergies Allergen Reactions Antihistamines, Chlorpheniramine-Type Benztropine Disorientation and loss of muscle control Diphenhydramine Disorientation Nsaids CKD Stage 3 Other Anticholinergics: cause disorientation and loss of muscle control Venlafaxine Hives [6] No current facility-administered medications on file prior to encounter. Current Outpatient Medications on File Prior to Encounter Medication Sig Dispense Refill acetaminophen (Tylenol) 325 MG tablet Take by mouth. amoxicillin (Amoxil) 500 MG capsule Take 2 capsules (1,000 mg) by mouth every 12 hours for 10 days. 40 capsule 0 bisacodyl (Dulcolax) 10 MG suppository Insert into the rectum. divalproex (Depakote ER) 250 MG 24 hr tablet Take 1 tablet (250 mg) by mouth in the morning and 1 tablet (250 mg) at noon and 1 tablet (250 mg) in the evening. Take with meals. 90 tablet 2 DULoxetine (Cymbalta) [address] capsule Take 1 capsule (60 mg) by mouth daily. Do not crush or chew. 30 capsule 3 lamoTRIgine (LaMICtal) 150 MG tablet Take 1 tablet (150 mg) by mouth Nightly. 30 tablet 2 metoprolol tartrate (Lopressor) 100 MG tablet Take 1 tablet (100 mg) by mouth 2 times daily. 60 tablet 3 omeprazole (PriLOSEC) [address] capsule Take 1 capsule (40 mg) by mouth every morning (before breakfast). Do not crush or chew. 90 capsule 1 risperiDONE (RisperDAL) 3 MG tablet Take 1 tablet (3 mg) by mouth Nightly. 30 tablet 3 rosuvastatin (Crestor) 10 MG tablet TAKE 1 TABLET BY MOUTH DAILY 90 tablet 1 traZODone (Desyrel) 100 MG tablet Take 2 tablets (200 mg) by mouth Nightly. 60 tablet 3 buprenorphine (Butrans) 20 MCG/HR Place 1 patch on the skin. (Patient not taking: Reported on 12/30/2024) clonazePAM (KlonoPIN) 0.5 MG tablet Take 1 tablet (0.5 mg) by mouth 2 times daily as needed for anxiety. 60 tablet 1 epoetin molly-epbx (Retacrit) 55338 UNIT/ML injection Inject 10,000 Units under the skin. ergocalciferol (Vitamin D-2) 1.25 MG (42471 UT) capsule Take 1.25 mg by mouth 1 (one) time per week. furosemide (Lasix) 40 MG tablet Take 1 tablet (40 mg) by mouth daily. 30 tablet 1 hydrALAZINE (Apresoline) 25 MG tablet Take 1 tablet (25 mg) by mouth 3 times daily. 90 tablet 1 levothyroxine (Synthroid, Levoxyl) 125 MCG tablet Take 1 tablet (125 mcg) by mouth daily. Do not start before August 06, 2024. (Patient not taking: Reported on 12/30/2024) MELATONIN PO Take by mouth. nystatin (Mycostatin) 285028 UNIT/GM powder Apply topically 2 times daily. Apply to groin 60 g 0 polyethylene glycol, PEG, 3350 (Miralax) 17 g packet Take by mouth. Polysaccharide Iron Complex (IFEREX 150 PO) Take by mouth. Daily [id number] Cosigned by Los Wilks DO at 01/14/2025 4:59 PM EDT Images from the original note were not included. PHYSICAL THERAPY [facility] Treatment Note Name/MRN: Jessy Mckeon ([id number]) Date of : 1965 Age: 59 y.o. Room/Bed: W7744/W7-744 A Discharge Recommendation: Snf Facility Prior Level of Function Prior Level of ADL Function: Required Assist Prior Level of Mobility: Required Assist; Device: Rollator Prior Level of Transfers: Required Assist Assessment Patient limited by fatigue/lethargy and pain this session. Completed bed level exercises with intermittent hands-on assist LLE and progressed to the EOB with moderate assist. Pt did not increase alertness with sitting EOB, deferred progression of session at this point for pt and therapist safety. Pt remains well below her baseline and will require SNF level therapies at discharge. Subjective Pt agreeable to PT. Drowsy/fatigued throughout session. Pain: 0-10 pain scale: 6+/10 Location: left knee Medical Precautions: No active isolations Proper PPE donned/doffed in accordance with facility standards. Fall Risk: [place] Fall Risk Score: 90 (High Risk) Precautions/Restrictions: Lines/Drains/Airways: purewick Fall Precautions Overall Cognitive Status: WFL Overall Orientation Status: Oriented x4 Family/Caregiver Present: none Objective Bed Mobility Supine to sit: Mod Assist Sit to supine: Mod Assist HOB elevated. Use of bed rails. Assist for LE sequencing and trunk elevation. To/from the left side of the bed. Cues for breathing as pt holding her breath during difficult sequencing. Exercises Exercises Quad Sets: x10 BLE` Heelslides: x10 BLE- AAROM LLE- decreased ROM d/t pain Gluteal Sets: x10 Hip Abduction: x10 BLE- AAROM LLE Hip Adduction: x10 BLE against pillow with 2s hold Knee Long Arc Quad: x10 BLE-decreased ROM LLE due to pain Knee Short Arc Quad: x10 BLE- AAROM LLE with decreased ROM d/t pain Ankle Pumps: x10 BLE Comments: Pt with increased pain and decreased ROM all LLE exercies. AAROM PRN. Verbal and tactile cues throughout to increase engagement and focus. Plan Continue acute PT per plan of care. Safety/Education Safety Safety Devices in place: All fall risk precautions in place, call light within reach, left in bed, and no alarms engaged upon entry Restraints: No Education Education Given To: patient Education Provided: PT Role, PT Goals, Plan of Care, Home Exercise Program, Energy Conservation, Discharge Recommendations, and Benefits of Increasing Activity Education Method: Verbal and Demonstration Barriers to Learning: None Education Outcome: Verbalized Understanding, Demonstrated Understanding, and Continued Education Needed Outcome Measures AM-PAC AM-PAC Inpatient Mobility Raw Score (No Stairs) : 7 JH-HLM JH-HLM Score: Sat at edge of bed Goals Patient Stated Goal: to get home Encounter Problems Encounter Problems (Active) Mobility Patient will ambulate 50 feet with supervision and rolling walker in order to improve safety and independence with mobility. (Not Addressed) Start: 01/01/25 Expected End: 01/29/25 Pain - Adult Transfers Patient will perform bed mobility with supervision in order to improve independence and prepare for out of bed mobility. (Progressing) Start: 01/01/25 Expected End: 01/29/25 Patient will complete sit to stand transfer with supervision to walker in order to improve safety and prepare for out of bed mobility. (Not Addressed) Start: 01/01/25 Expected End: 01/29/25 Therapy Time Individual Co-treatment Time In 1047 Time Out 1059 Minutes 12 Timed Code Treatment Minutes: 12 Minutes (FA) Saray Colmenares PTA Cosigned by Jorge Shetty PT at 01/03/2025 1:11 PM EDT Hospitalist Progress Note 01/03/2025 Subjective: Admit Date: 12/30/2024 PCP: Edith Pierce MD Room#: W7-744/W7-744 A BRIEF HOSPITAL COURSE: Jessy is a 59 y.o. female with past medical history below who presents with chief complaint listed above. [place] AFTER recurrent falls, pt is sleepy in ER but wakes up to verbal stimuli, answers questions and then goes to sleep. Reports pain in her suprapubic area, decreased strength and uses a rollator at baseline to move around, for the past few days had 5-6 falls where she slid down from her chair, unsure if she hit her head, reports pain in her LLE. CT head obtained in the ED noted to be negative. X-ray of the left knee noted for severe tricompartmental osteoarthritis of the knee. Started on scheduled Tylenol for left leg severe osteoarthritis. Patient reports improvement in left leg pain. Further workup revealed TSH elevated at 40.0. Patient is on 125 mcg of Synthroid at the facility, increase the dose of Synthroid to 137.5 and recommend repeat TSH in 4 weeks. Evaluated by PT/OT and recommends SNF. Noted to have drop in h&h, with hx of iron deficiency anemia. No signs of overt bleeding noted. Iron panel with iron 37, saturation 25.3, and TIBC 146. Started on IV venofer. Interval History: Sleepy this AM. Denies any complaints at the present time. Remains hemodynamically stable. Reports feeling overall better. Tolerating diet. Refusing blood draw this AM. No acute events overnight. Adult diet Regular 24HR INTAKE/OUTPUT: Intake/Output Summary (Last 24 hours) at 01/03/2025 0944 Last data filed at 01/02/2025 2100 Gross per 24 hour Intake -- Output 1600 ml Net -1600 ml Past Medical History: Medical History[1] LABS: CBC: Recent Labs 12/31/240 01/02/25 0103 WBC 8.5 7.5 RBC 2.37* 2.28* HGB 7.2* 7.1* HCT 22.7* 21.9* MCV 95.8 96.1 RDW 13.9 14.1 PLT 318 303 BMP: Recent Labs 12/31/24 2340 01/02/25 0103 NA 132* 132* K 4.3 4.2 CL 101 102 CO2 22 21* BUN 16 14 CREATININE 2.46* 2.30* GLUCOSE 76 75 CALCIUM 8.0* 8.0* ANIONGAP 9 9 LIVER PROFILE: No results for input(s): "AST", "ALT", "BILITOT", "ALKPHOS", "PROT" in the last 72 hours. No lab exists for component: LABALBU PT/INR: No results for input(s): "PROTIME", "INR" in the last 72 hours. CARDIAC ENZYMES: No results for input(s): "TROPONINI" in the last 72 hours. Procalcitonin: No results found for: "PROCAL" COVID-19 PCR: No results for input(s): "COVID19" in the last 72 hours. Objective: Vitals: BP 129/79 (BP Location: Left arm, Patient Position: Lying) Pulse 85 Temp 36.2 C (97.2 F) (Temporal) Resp 16 Ht 5' 2.99" (1.6 m) Wt 296 lb 12.8 oz (135 kg) SpO2 95% BMI 52.59 kg/m Pulse Ox: SpO2 Av.5 % Min: 95 % Max: 96 % Supplemental O2: Physical Exam Vitals and nursing note reviewed. Cardiovascular: Rate and Rhythm: Normal rate and regular rhythm. Heart sounds: Normal heart sounds. Pulmonary: Effort: Pulmonary effort is normal. Breath sounds: Normal breath sounds. Abdominal: General: Bowel sounds are normal. Palpations: Abdomen is soft. Skin: General: Skin is warm and dry. Capillary Refill: Capillary refill takes less than 2 seconds. Neurological: Mental Status: She is alert and oriented to person, place, and time. Medications: Scheduled PRN Scheduled Meds[2] PRN Meds[3] Continuous Continuous Meds[4] Assessment Data: (CAT1) Reviewed 3 or more notes from different specialty or health system (each=1). (CAT1) Reviewed 3 or more labs/studies ordered by another provider not previously counted (each=1, panels count as 1). (LOW: 2x CAT1 or independent historian MOD: 3x CAT1 or 1x CAT3 EXTENSIVE: 3x CAT1 and 1x CAT3) Acute, acute on chronic, unstable/uncontrolled chronic problems/diagnoses: Generalized debility Recurrent falls Left leg pain- Improved Left leg severe osteoarthritis Hypothyroidism Sacral wounds Stable chronic problems affecting care, new non-acute diagnoses: Depression and anxiety CKD stage IIIb Asperger syndrome Debility Chronic iron deficiency anemia HTN HLD Bipolar disorder Right foot laterally dislocated second MTP joint and laterally subluxed or dislocated first MTP joint Plan As a result of the above findings & factors, the following mgmt was pursued: -LE pain 2/2 severe OA, LE pain likely contributing to multiple falls -TSH elevated at 40.0. Increase the dose of Synthroid to 137.5. Recommend repeat TSH in 4 weeks. - Continue scheduled Tylenol for osteoarthritis - Iron panel with iron deficiency anemia. Transfuse for hemoglobin less than 7. Continue IV Venofer. Continue ferrous sulfate. - Wound care following for sacral wounds -[facility] - am labs, replace lytes prn - PT/OT/CM/SW - delirium precautions: increase activity and limit nighttime disturbances - DVT prophylaxis: enoxaparin and encourage ambulation Complexity: Acute illness or injury posing a threat to life or body function (HIGH). Chronic illness with severe exacerbation, progression, or side effect of tx (HIGH). Risk: Admission to hospital-level care was considered or occurred (HIGH). Advance Directive: Full Code Anticipated Discharge - Date - 01/05? - Location - SNF - Pending the following - above eval, clinical progress Total time spent (which include face to face and non face to face encounters) : 45 minutes Extended Emergency Contact Information Primary Emergency Contact: Pita Jara Mobile Relation: Parent Preferred language: Northern Irish Mechanism Inspector needed? No Secondary Emergency Contact: EstefaniMamadou Alamo Relation: Father Ghislaine Macedo, BETH Division of Hospitalist Medicine [facility] [1] Past Medical History: Diagnosis Date Acid reflux Anxiety Arthritis Asperger syndrome Bipolar disorder (HCC) Chronic kidney disease stage 4 kidney failure Chronic pain Depression Edema of both legs GERD (gastroesophageal reflux disease) Hemorrhoids Hyperlipidemia Hypertension Hypothyroidism Iron (Fe) deficiency anemia Nephrogenic diabetes insipidus (HCC) Pain management Retention of urine, unspecified Sciatica SOB (shortness of breath) GRANT Type II or unspecified type diabetes mellitus without mention of complication, not stated as uncontrolled (HCC) Urinary incontinence nightly [2] acetaminophen, 1,000 mg, Oral, q8h buprenorphine, 1 patch, TransDERmal, Weekly divalproex, 250 mg, Oral, TID WC DULoxetine, 60 mg, Oral, Daily ergocalciferol, 1,250 mcg, Oral, Weekly ferrous sulfate, 325 mg, Oral, Daily with breakfast heparin, 5,000 Units, SubCUTAneous, 2 times per day iron sucrose, 200 mg, IntraVENous, q24h lamoTRIgine, 150 mg, Oral, Nightly levothyroxine, 137.5 mcg, Oral, qAM AC miconazole, , Topical, BID pantoprazole, 40 mg, Oral, qAM AC risperiDONE, 3 mg, Oral, Nightly rosuvastatin, 10 mg, Oral, Daily senna-docusate sodium, 2 tablet, Oral, Daily sodium chloride 0.9%, 5-40 mL, IntraVENous, q12h stomahesive in petrolatum, , Topical, q8h traZODone, 200 mg, Oral, Nightly [3] PRN medications: clonazePAM, melatonin, naloxone, ondansetron ODT OR ondansetron, polyethylene glycol (PEG) 3350, sodium chloride, sodium chloride 0.9%, stomahesive in petrolatum [4] Hospitalist Progress Note 01/02/2025 Subjective: Admit Date: 12/30/2024 PCP: Edith Pierce MD Room#: W7-744/W7-744 A BRIEF HOSPITAL COURSE: Jessy is a 59 y.o. female with past medical history below who presents with chief complaint listed above. Pt was brought in from [place] AFTER recurrent falls, pt is sleepy in ER but wakes up to verbal stimuli, answers questions and then goes to sleep. Reports pain in her suprapubic area, decreased strength and uses a rollator at baseline to move around, for the past few days had 5-6 falls where she slid down from her chair, unsure if she hit her head, reports pain in her LLE. CT head obtained in the ED noted to be negative. X-ray of the left knee noted for severe tricompartmental osteoarthritis of the knee. Started on scheduled Tylenol for left leg severe osteoarthritis. Patient reports improvement in left leg pain. Further workup revealed TSH elevated at 40.0. Patient is on 125 mcg of Synthroid at the facility, increase the dose of Synthroid to 137.5 and recommend repeat TSH in 4 weeks. Evaluated by PT/OT and recommends SNF. Interval History: Seen and evaluated this a.m., resting in bed. Denies any complaints at the present time. Discussed drop in H&H with the patient this a.m. Denies any acute overt GI bleed. Does have history of chronic iron deficiency anemia. Iron panel ordered and noted for iron 37, saturation 25.3, and TIBC 146. Plan to start IV Venofer. Adult diet Regular 24HR INTAKE/OUTPUT: Intake/Output Summary (Last 24 hours) at 01/02/2025 1244 Last data filed at 01/02/2025 1151 Gross per 24 hour Intake -- Output 1750 ml Net -1750 ml Past Medical History: Medical History[1] LABS: CBC: Recent Labs 12/30/24181812/31/240 01/02/25 0103 WBC 7.9 8.5 7.5 RBC 2.49* 2.37* 2.28* HGB 7.7* 7.2* 7.1* HCT 24.4* 22.7* 21.9* MCV 98.0 95.8 96.1 RDW 14.1 13.9 14.1 PLT 268 318 303 BMP: Recent Labs 12/30/24181812/31/24 2340 01/02/25 0103 NA 135* 132* 132* K 4.0 4.3 4.2 CL 103 101 102 CO2 24 22 21* BUN 15 16 14 CREATININE 2.72* 2.46* 2.30* GLUCOSE 91 76 75 CALCIUM 8.5 8.0* 8.0* ANIONGAP 8 9 9 LIVER PROFILE: Recent Labs 12/30/241818 AST 22 ALT <6 BILITOT 0.2 ALKPHOS 54 PROT 6.5 PT/INR: No results for input(s): "PROTIME", "INR" in the last 72 hours. CARDIAC ENZYMES: No results for input(s): "TROPONINI" in the last 72 hours. Procalcitonin: No results found for: "PROCAL" COVID-19 PCR: No results for input(s): "COVID19" in the last 72 hours. Objective: Vitals: BP 149/83 Pulse 76 Temp 36.5 C (97.7 F) (Temporal) Resp 18 Ht 5' 2.99" (1.6 m) Wt 296 lb 12.8 oz (135 kg) SpO2 95% BMI 52.59 kg/m Pulse Ox: SpO2 Av.5 % Min: 95 % Max: 98 % Supplemental O2: Physical Exam Vitals and nursing note reviewed. Cardiovascular: Rate and Rhythm: Normal rate and regular rhythm. Heart sounds: Normal heart sounds. Pulmonary: Effort: Pulmonary effort is normal. Breath sounds: Normal breath sounds. Abdominal: General: Bowel sounds are normal. Palpations: Abdomen is soft. Skin: General: Skin is warm and dry. Capillary Refill: Capillary refill takes less than 2 seconds. Neurological: Mental Status: She is alert and oriented to person, place, and time. Medications: Scheduled PRN Scheduled Meds[2] PRN Meds[3] Continuous Continuous Meds[4] Assessment Data: (CAT1) Reviewed 3 or more notes from different specialty or health system (each=1). (CAT1) Reviewed 3 or more labs/studies ordered by another provider not previously counted (each=1, panels count as 1). (LOW: 2x CAT1 or independent historian MOD: 3x CAT1 or 1x CAT3 EXTENSIVE: 3x CAT1 and 1x CAT3) Acute, acute on chronic, unstable/uncontrolled chronic problems/diagnoses: Generalized debility Recurrent falls Left leg pain Left leg severe osteoarthritis Hypothyroidism Stable chronic problems affecting care, new non-acute diagnoses: Depression and anxiety CKD stage IIIb Asperger syndrome Debility Chronic iron deficiency anemia HTN HLD Bipolar disorder Right foot laterally dislocated second MTP joint and laterally subluxed or dislocated first MTP joint Plan As a result of the above findings & factors, the following mgmt was pursued: - PT/OT to evaluate, LE pain likely contributing to multiple falls -TSH elevated at 40.0. Increase the dose of Synthroid to 137.5. Recommend repeat TSH in 4 weeks. - Continue scheduled Tylenol for osteoarthritis - Iron panel with iron deficiency anemia. Transfuse for hemoglobin less than 7. Start IV Venofer. Continue ferrous sulfate. -Plan for [facility] to [facility], pending Auth - am labs, replace lytes prn - PT/OT/CM/SW - delirium precautions: increase activity and limit nighttime disturbances - DVT prophylaxis: enoxaparin and encourage ambulation Complexity: Acute illness or injury posing a threat to life or body function (HIGH). Chronic illness with severe exacerbation, progression, or side effect of tx (HIGH). Risk: Admission to hospital-level care was considered or occurred (HIGH). Advance Directive: Full Code Anticipated Discharge - Date - - Location - SNF - Pending the following - above eval, clinical progress Total time spent (which include face to face and non face to face encounters) : 45 minutes Extended Emergency Contact Information Primary Emergency Contact: Pita Jara Mobile Relation: Parent Preferred language: Northern Irish Mechanism Inspector needed? No Secondary Emergency Contact: Mamadou Jara Relation: Father Ghislaine Macedo NP Division of Hospitalist Medicine [facility] [1] Past Medical History: Diagnosis Date Acid reflux Anxiety Arthritis Asperger syndrome Bipolar disorder (HCC) Chronic kidney disease stage 4 kidney failure Chronic pain Depression Edema of both legs GERD (gastroesophageal reflux disease) Hemorrhoids Hyperlipidemia Hypertension Hypothyroidism Iron (Fe) deficiency anemia Nephrogenic diabetes insipidus (HCC) Pain management Retention of urine, unspecified Sciatica SOB (shortness of breath) GRANT Type II or unspecified type diabetes mellitus without mention of complication, not stated as uncontrolled (HCC) Urinary incontinence nightly [2] acetaminophen, 1,000 mg, Oral, q8h buprenorphine, 1 patch, TransDERmal, Weekly divalproex, 250 mg, Oral, TID WC DULoxetine, 60 mg, Oral, Daily ergocalciferol, 1,250 mcg, Oral, Weekly ferrous sulfate, 325 mg, Oral, Daily with breakfast heparin, 5,000 Units, SubCUTAneous, 2 times per day iron sucrose, 300 mg, IntraVENous, Once lamoTRIgine, 150 mg, Oral, Nightly levothyroxine, 137.5 mcg, Oral, qAM AC miconazole, , Topical, BID pantoprazole, 40 mg, Oral, qAM AC risperiDONE, 3 mg, Oral, Nightly rosuvastatin, 10 mg, Oral, Daily sodium chloride 0.9%, 5-40 mL, IntraVENous, q12h stomahesive in petrolatum, , Topical, q8h traZODone, 200 mg, Oral, Nightly [3] PRN medications: clonazePAM, melatonin, naloxone, ondansetron ODT OR ondansetron, polyethylene glycol (PEG) 3350, sodium chloride, sodium chloride 0.9%, stomahesive in petrolatum [4] Images from the original note were not included. OCCUPATIONAL THERAPY [facility] Initial Evaluation Name/MRN: Jessy Mckeon ([id number]) Evaluation Date: 01/01/2025 Date of : 1965 Admission Date: 12/30/2024 11:09 AM Age: 59 y.o. Room/Bed: W7-744/W7-744 A Discharge Recommendation: Snf Facility Equipment Needed: No Assessment IMPRESSION: Patient admit due to fall. Presents with limitations secondary to weakness and pain. Patient PLOF includes stand by assistance from staff at [facility] for BADLs., uses Rollator for mobility and able to walk short distances Patient demonstrates below baseline for evaluation. Mod a for bed mobility, attempts to stand from sit EOB position x 3 trials with max a, patient unable to move buttocks more than a few inches off bed due to pain in L LE. Patient required max a for LB dressing. Patient requires education and motivation for benefits of therapy. OT recommends SNF at [place]. Admitting Diagnosis: fall Performance Deficits /Impairments: Increased Pain, Decreased Functional Mobility, Decreased ADL status, Decreased Strength, Decreased Safety Awareness, Decreased Endurance, Decreased Balance, Decreased ROM, Decreased Fine Motor Control, Decreased Coordination, and Decreased Posture Prognosis: Fair Decision Making: Low Complexity Subjective Patient agreeable to OT session, RN cleared patient for therapy. Pain: [place]udd[place]eston-Tam Pain Ratin = Hurts little more Pain Location: L LE, L UE Past Medical History: Medical History[1] Past Surgical History: Surgical History[2] Admission Diagnosis: Patient Active Problem List Diagnosis Date Noted Fall, initial encounter 12/30/2024 Lower extremity edema 10/02/2024 Fluid overload 08/03/2024 Hypervolemia, unspecified hypervolemia type 08/03/2024 Acute cystitis without hematuria 06/28/2024 Chronic renal disease, stage IV ([facility]) 06/20/2023 Chronic kidney disease, stage 3b ([facility]) 06/20/2023 Urinary tract infection without hematuria, site unspecified 03/17/2023 Urinary tract infection 03/16/2023 Depression 12/23/2021 Localized edema 01/11/2019 Schizoaffective disorder ([facility]/HCC) ([facility]) 06/05/2018 Suicidal ideations 05/22/2018 Chronic schizoaffective disorder ([facility]) 05/22/2018 Acute gastric ulcer without hemorrhage or perforation 03/28/2018 Diverticulosis of large intestine without diverticulitis 03/28/2018 Chronic antral gastritis 03/28/2018 First degree hemorrhoids 03/28/2018 Dyspnea 03/03/2018 Urinary retention 03/02/2018 Chest pain 02/14/2018 Hyponatremia 02/12/2018 Hypothyroidism 10/12/2017 Morbid obesity with BMI of 45.0-49.9, adult ([facility]) 10/12/2017 Hypomagnesemia 10/12/2017 JOSE A (acute kidney injury) ([facility]) 10/12/2017 Chronic bilateral low back pain with bilateral sciatica 10/12/2017 Psychogenic polydipsia 10/12/2017 Hypertension 10/12/2017 Bipolar disorder ([facility]) 10/12/2017 Iron (Fe) deficiency anemia 10/09/2017 Primary hypothyroidism 06/13/2017 Pneumonia 06/13/[address] 06/13/2017 Urge incontinence of urine 01/12/2017 Nocturia 10/15/2016 Urge incontinence 10/15/2016 Rotator cuff strain 11/03/2015 Osteoarthritis of patellofemoral joint 11/03/2015 Anxiety 04/03/2015 GERD (gastroesophageal reflux disease) 04/03/2015 Urinary incontinence 04/03/2015 Medical Precautions: Contact Proper PPE donned/doffed in accordance with facility standards. Fall Risk: Shelton Fall Risk Score: 90 (High Risk) Precautions/Restrictions: Lines/Drains/Airways: purewick Fall Precautions Family/Caregiver Present: none Overall Cognitive Status: Exceptions - Attention span: difficulty dividing attention - Safety judgement: good awareness of safety precautions - impulsive Overall Orientation Status: Oriented to Place, Oriented to Situation, and Oriented to Person Social/Functional History Patient admitted from [facility]. Assistive Equipment: rollator Patient lives in [facility] where staff provides all IADL care and assistance with SBA. Patient typically uses rollator for short mobility distances, has w/c available. Prior Level of Function Prior Level of ADL Function: Required Assist Prior Level of Mobility: Required Assist; CGA/SBARollator Prior Level of Transfers: Required Assist Objective ADLs LE Dressing: Max Assist Upper Extremity Assessment AROM: Impaired: L UE impairments for shoulder and wrist. PROM: Not assessed this session Strength: Exceptions: WFL for R UE, L UE weakness noted Bed Mobility Supine to sit: Mod Assist Sit to supine: Mod Assist Scooting: Mod Assist Transfers/Mobility Sit to stand: Max Assist Sitting balance: Min Assist Patient requires motivation, patient unable to complete for stand due to pain in L LE. Patient impulsive, throws body backward when seated at EOB. Device(s) used: None AM-PAC AM-PAC Inpatient Daily Activity Raw Score: 13 ADL Inpatient CMS G-Code Modifier: CL Plan Pt would benefit from skilled acute OT services to address Strengthening, ROM, Gait Training, Balance Training, Self-Care/ADL Training, Functional Mobility Training, Endurance Training, Safety Education and Training, Equipment Evaluation/Education, and Patient/Caregiver Training. Frequency: 3x/week for 4 weeks Barriers: Limited safety awareness, Impulsivity, and Decreased motivation Safety/Education Safety Safety Devices in place: All fall risk precautions in place, call light within reach, left in bed, bed alarm in place, and nurse notified Restraints: No Education Education Given To: patient Education Provided: OT Role, Plan of Care, Precautions, ADL Adaptive Strategies, Transfer Training, Energy Conservation, Discharge Recommendations, and Benefits of Increasing Activity Education Method: Verbal Barriers to Learning: poor motivation Education Outcome: Verbalized Understanding and Continued Education Needed Goals Patient Stated Goal: go to sleep Encounter Problems Encounter Problems (Active) Balance Patient will maintain dynamic standing balance for 3 minutes with CGA in order to demonstrate decreased risk of falling. Start: 01/01/25 Expected End: 01/29/25 Bathing Patient will utilize adaptive techniques to bathe body with SBA. Start: 01/01/25 Expected End: 01/29/25 Dressing Upper Extremities Patient will complete upper body dressing with SBA. Start: 01/01/25 Expected End: 01/29/25 Dressings Lower Extremities Patient will dress lower body using adaptive strategies with SBA. Start: 01/01/25 Expected End: 01/29/25 Grooming Patient will complete daily grooming tasks while standing at sink with CGA. Start: 01/01/25 Expected End: 01/29/25 Mobility Patient will demonstrate functional ambulation using LRD with CGA. Start: 01/01/25 Expected End: 01/29/25 Toileting Patient will complete toileting tasks at standard toilet with CGA. Start: 01/01/25 Expected End: 01/29/25 Transfers Patient will complete functional transfer with least restrictive device with CGA in order to prepare for ambulation. Start: 01/01/25 Expected End: 01/29/25 Patient will perform bed mobility with modified independence in order to improve independence and prepare for out of bed mobility. Start: 01/01/25 Expected End: 01/29/25 Therapy Time Individual Co-Treatment Co-Evaluation Time In 0929 Time Out 0953 Minutes 24 Timed Code Treatment Minutes: 15 Minutes Diamond Coles OT Patient's Occupational Therapy Plan of Care supervision is transferred to a [facility] Occupational Therapist. Goals and/or treatment plan was established in collaboration with patient/family/other representatives. [1] Past Medical History: Diagnosis Date Acid reflux Anxiety Arthritis Asperger syndrome Bipolar disorder (HCC) Chronic kidney disease stage 4 kidney failure Chronic pain Depression Edema of both legs GERD (gastroesophageal reflux disease) Hemorrhoids Hyperlipidemia Hypertension Hypothyroidism Iron (Fe) deficiency anemia Nephrogenic diabetes insipidus (HCC) Pain management Retention of urine, unspecified Sciatica SOB (shortness of breath) GRANT Type II or unspecified type diabetes mellitus without mention of complication, not stated as uncontrolled (HCC) Urinary incontinence nightly [2] Past Surgical History: Procedure Laterality Date 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 PHYSICAL THERAPY [facility] Initial Evaluation Name/MRN: Jessy Mckeon ([id number]) Evaluation Date: 01/01/2025 Date of : 1965 Admission Date: 12/30/2024 11:09 AM Age: 59 y.o. Room[facility]Bed: [facility] Discharge Recommendation: Snf Facility Assessment IMPRESSION: pt admitted with fall. Pt mod assist for bed mobility. Pt mod assist for partial stands. Limited by pain in L leg. Recommend SNF upon disch. Admitting Diagnosis: fall Prognosis: fair Performance Deficits /Impairments: Increased Pain, Decreased Functional Mobility, Decreased ADL status, Decreased Strength, and Decreased Balance Decision Making: Medium Complexity Subjective Pt in bed. Agreeable to PT with encouragement Pain: LLE with weightbearing Past Medical History: Medical History[1] Past Surgical History: Surgical History[2] Admission Diagnosis: Patient Active Problem List Diagnosis Date Noted Fall, initial encounter 12/30/2024 Lower extremity edema 10/02/2024 Fluid overload 08/03/2024 Hypervolemia, unspecified hypervolemia type 08/03/2024 Acute cystitis without hematuria 06/28/2024 Chronic renal disease, stage IV (HCC) 06/20/2023 Chronic kidney disease, stage 3b (HCC) 06/20/2023 Urinary tract infection without hematuria, site unspecified 03/17/2023 Urinary tract infection 03/16/2023 Depression 12/23/2021 Localized edema 01/11/2019 Schizoaffective disorder ([facility]) ([facility]) 06/05/2018 Suicidal ideations 05/22/2018 Chronic schizoaffective disorder ([facility]) 05/22/2018 Acute gastric ulcer without hemorrhage or perforation 03/28/2018 Diverticulosis of large intestine without diverticulitis 03/28/2018 Chronic antral gastritis 03/28/2018 First degree hemorrhoids 03/28/2018 Dyspnea 03/03/2018 Urinary retention 03/02/2018 Chest pain 02/14/2018 Hyponatremia 02/12/2018 Hypothyroidism 10/12/2017 Morbid obesity with BMI of 45.0-49.9, adult ([facility]) 10/12/2017 Hypomagnesemia 10/12/2017 JOSE A (acute kidney injury) ([facility]) 10/12/2017 Chronic bilateral low back pain with bilateral sciatica 10/12/2017 Psychogenic polydipsia 10/12/2017 Hypertension 10/12/2017 Bipolar disorder ([facility]) 10/12/2017 Iron (Fe) deficiency anemia 10/09/2017 Primary hypothyroidism 06/13/2017 Pneumonia 06/13/[address] 06/13/2017 Urge incontinence of urine 01/12/2017 Nocturia 10/15/2016 Urge incontinence 10/15/2016 Rotator cuff strain 11/03/2015 Osteoarthritis of patellofemoral joint 11/03/2015 Anxiety 04/03/2015 GERD (gastroesophageal reflux disease) 04/03/2015 Urinary incontinence 04/03/2015 Medical Precautions: Contact Proper PPE donned/doffed in accordance with facility standards. Fall Risk: Shelton Fall Risk Score: 90 (High Risk) Precautions/Restrictions: Lines/Drains/Airways: purewick Fall Precautions Family/Caregiver Present: none Overall Cognitive Status: Exceptions - Arousal/alertness: appropriate responses to stimuli - Following commands: follows one step commands consistently - Safety judgement: decreased awareness of need for safety Overall Orientation Status: Oriented to Person; speech difficult to understand at times Vision: no acute vision changes reported Hearing: grossly WFL Social/Functional History AL, per pt ambulates with rollator, poor historian, reports she normally does fine. Prior Level of Function Prior Level of ADL Function: Required Assist Prior Level of Mobility: Required Assist; Device: Rollator Prior Level of Transfers: Required Assist Objective Lower Extremity Assessment AROM: Exceptions: grossly WFL PROM: Not assessed this session Strength: Exceptions: observed at least 3-/5 BLEs through functional mobility Sensation: Exceptions: denies numbness in feet Balance: sat on EOB with stand by assist to supervision. Supervision for seated balance during seated LE therex. Scooting to HOB while sitting on EOB - mod assist to min assist to scoot but pt able to maintain trunk control/balance on her own. Pt performed about 8 reps of scooting while sitting with partial stands Bed Mobility: Supine to sit: Mod Assist Sit to supine: Mod Assist, for legs Rolling to right: Mod Assist Rolling to left: Mod Assist Scooting: Mod Assist HOB Elevated Use of bed rail(s) Increased time to complete tasks. Assist to maintain sidelying - mod assist with roll to the L, min assist with roll to R Transfers Sit to stand: Mod Assist Partial stands to scoot to HOB while seated. Unable to perform full stand secondary to pain in LLE. Encouragement provided Ambulation Did not assess this session. Exercises Seated therex: long arc quad times 10 reps, ankle pumps times 10 reps Outcome Measures AM-PAC How much HELP from another person do you currently need Turning from your back to your side while in a flat bed without using bedrails?: A Lot Moving from lying on your back to sitting on the side of a flat bed without using bedrails?: A Lot Moving to and from a bed to a chair (including a wheelchair)?: A Lot Standing up from a chair using your arms (wheelchair or bedside chair)?: A Lot Walking in a hospital room?: A Lot Stair climbing assessed?: No AM-PAC Inpatient Mobility Raw Score (No Stairs) : 10 JH-HLM -HLM Score: Sat at edge of bed Plan Pt would benefit from skilled acute PT services to address Strengthening, ROM, Gait Training, Balance Training, Self-Care/ADL Training, Functional Mobility Training, Safety Education and Training, and Equipment Evaluation/Education. Frequency: 10 visits during current hospital admission or until additional recommendations are made Barriers: Pain Safety/Education Safety Safety Devices in place: call light within reach, left in bed, patient at risk for falls, and no alarms engaged upon entry Restraints: No Education Education Given To: patient Education Provided: PT Role Education Method: Verbal Barriers to Learning: Education Outcome: Goals Patient Stated Goal: to get home Encounter Problems Encounter Problems (Active) Mobility Patient will ambulate 50 feet with supervision and rolling walker in order to improve safety and independence with mobility. Start: 01/01/25 Expected End: 01/29/25 Pain - Adult Transfers Patient will perform bed mobility with supervision in order to improve independence and prepare for out of bed mobility. Start: 01/01/25 Expected End: 01/29/25 Patient will complete sit to stand transfer with supervision to walker in order to improve safety and prepare for out of bed mobility. Start: 01/01/25 Expected End: 01/29/25 Therapy Time Individual Co-Treatment Co-Evaluation Time In 0800 Time Out 0832 Minutes 32 Treatment time 8min ANISA Mitchell PT Patient's Physical Therapy Plan of Care supervision is transferred to a [facility] Therapy Services Physical Therapist. Goals and/or treatment plan was established in collaboration with patient/family/other representatives. [1] Past Medical History: Diagnosis Date Acid reflux Anxiety Arthritis Asperger syndrome Bipolar disorder (HCC) Chronic kidney disease stage 4 kidney failure Chronic pain Depression Edema of both legs GERD (gastroesophageal reflux disease) Hemorrhoids Hyperlipidemia Hypertension Hypothyroidism Iron (Fe) deficiency anemia Nephrogenic diabetes insipidus (HCC) Pain management Retention of urine, unspecified Sciatica SOB (shortness of breath) GRANT Type II or unspecified type diabetes mellitus without mention of complication, not stated as uncontrolled (HCC) Urinary incontinence nightly [2] Past Surgical History: Procedure Laterality Date 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 female with past medical history below who presents with chief complaint listed above. [place], pt is sleepy in ER but wakes up to verbal stimuli, answers questions and then goes to sleep. Reports pain in her suprapubic area, decreased strength and uses a rollator at baseline to move around, for the past few days had 5-6 falls where she slid down from her chair, unsure if she hit her head, reports pain in her LLE. CT head obtained in the ED noted to be negative. X-ray of the left knee noted for severe tricompartmental osteoarthritis of the knee. Admitted for further evaluation and management. Interval History: Seen and examined this AM, resting in bed. Complaints of lower extremity pain, Discussed plan to start on NICOLE tylenol. Discussed plan with bedside nursing and patient. Refused PT/OT eval yesterday, encouraged to work with therapy today. Adult diet Regular 24HR INTAKE/OUTPUT: Intake/Output Summary (Last 24 hours) at 01/01/2025 1159 Last data filed at 01/01/2025 1058 Gross per 24 hour Intake -- Output 1760 ml Net -1760 ml Past Medical History: Medical History[1] LABS: CBC: Recent Labs 12/30/24 18112/31/24 2340 WBC 7.9 8.5 RBC 2.49* 2.37* HGB 7.7* 7.2* HCT 24.4* 22.7* MCV 98.0 95.8 RDW 14.1 13.9 PLT 268 318 BMP: Recent Labs 12/30/24 1819 12/31/24 2340 NA 135* 132* K 4.0 4.3 CL 103 101 CO2 24 22 BUN 15 16 CREATININE 2.72* 2.46* GLUCOSE 91 76 CALCIUM 8.5 8.0* ANIONGAP 8 9 LIVER PROFILE: Recent Labs 12/30/241818 AST 22 ALT <6 BILITOT 0.2 ALKPHOS 54 PROT 6.5 PT/INR: No results for input(s): "PROTIME", "INR" in the last 72 hours. CARDIAC ENZYMES: No results for input(s): "TROPONINI" in the last 72 hours. Procalcitonin: No results found for: "PROCAL" COVID-19 PCR: No results for input(s): "COVID19" in the last 72 hours. Objective: Vitals: BP 147/82 Pulse 76 Temp 36.7 C (98.1 F) (Temporal) Resp 19 Ht 5' 2.99" (1.6 m) Wt 296 lb 12.8 oz (135 kg) SpO2 99% BMI 52.59 kg/m Pulse Ox: SpO2 Av % Min: 95 % Max: 99 % Supplemental O2: Physical Exam Vitals and nursing note reviewed. Cardiovascular: Rate and Rhythm: Normal rate and regular rhythm. Heart sounds: Normal heart sounds. Pulmonary: Effort: Pulmonary effort is normal. Breath sounds: Normal breath sounds. Abdominal: General: Bowel sounds are normal. Palpations: Abdomen is soft. Skin: General: Skin is warm and dry. Capillary Refill: Capillary refill takes less than 2 seconds. Neurological: Mental Status: She is alert and oriented to person, place, and time. Medications: Scheduled PRN Scheduled Meds[2] PRN Meds[3] Continuous Continuous Meds[4] Assessment Data: (CAT1) Reviewed 3 or more notes from different specialty or health system (each=1). (CAT1) Reviewed 3 or more labs/studies ordered by another provider not previously counted (each=1, panels count as 1). (LOW: 2x CAT1 or independent historian MOD: 3x CAT1 or 1x CAT3 EXTENSIVE: 3x CAT1 and 1x CAT3) Acute, acute on chronic, unstable/uncontrolled chronic problems/diagnoses: Generalized debility Recurrent falls Left leg pain Left leg severe osteoarthritis Hypothyroidism Stable chronic problems affecting care, new non-acute diagnoses: Depression and anxiety CKD stage IIIb Asperger syndrome Debility Chronic iron deficiency anemia HTN HLD Bipolar disorder Right foot laterally dislocated second MTP joint and laterally subluxed or dislocated first MTP joint Plan As a result of the above findings & factors, the following mgmt was pursued: - PT/OT to evaluate, LE pain likely contributing to multiple falls -TSH elevated at 40.0. Increase the dose of Synthroid to 137.5. Recommend repeat TSH in 4 weeks. -Add scheduled Tylenol for osteoarthritis - H&H 7.2 & 22.7 today. Check iron panel. With hx of iron deficiency anemia. Start ferrous sulfate. - am labs, replace lytes prn - PT/OT/CM/SW - delirium precautions: increase activity and limit nighttime disturbances - DVT prophylaxis: enoxaparin and encourage ambulation Complexity: Acute illness or injury posing a threat to life or body function (HIGH). Chronic illness with severe exacerbation, progression, or side effect of tx (HIGH). Risk: Admission to hospital-level care was considered or occurred (HIGH). Advance Directive: Full Code Anticipated Discharge - Date - 01/02? - Location - SNF vs [place] - Pending the following - above eval, clinical progress Total time spent (which include face to face and non face to face encounters) : 45 minutes Extended Emergency Contact Information Primary Emergency Contact: Pita Jara [employer] Relation: Parent Preferred language: Northern Irish Mechanism Inspector needed? No Secondary Emergency Contact: Mamadou Jara Relation: Father Ghislaine Macedo NP [facility] [employer] [facility] [1] Past Medical History: Diagnosis Date Acid reflux Anxiety Arthritis Asperger syndrome Bipolar disorder (HCC) Chronic kidney disease stage 4 kidney failure Chronic pain Depression Edema of both legs GERD (gastroesophageal reflux disease) Hemorrhoids Hyperlipidemia Hypertension Hypothyroidism Iron (Fe) deficiency anemia Nephrogenic diabetes insipidus (HCC) Pain management Retention of urine, unspecified Sciatica SOB (shortness of breath) GRANT Type II or unspecified type diabetes mellitus without mention of complication, not stated as uncontrolled (HCC) Urinary incontinence nightly [2] acetaminophen, 1,000 mg, Oral, q8h buprenorphine, 1 patch, TransDERmal, Weekly divalproex, 250 mg, Oral, TID WC DULoxetine, 60 mg, Oral, Daily ergocalciferol, 1,250 mcg, Oral, Weekly ferrous sulfate, 325 mg, Oral, Daily with breakfast heparin, 5,000 Units, SubCUTAneous, 2 times per day lamoTRIgine, 150 mg, Oral, Nightly levothyroxine, 137.5 mcg, Oral, qAM AC miconazole, , Topical, BID pantoprazole, 40 mg, Oral, qAM AC risperiDONE, 3 mg, Oral, Nightly rosuvastatin, 10 mg, Oral, Daily sodium chloride 0.9%, 5-40 mL, IntraVENous, q12h traZODone, 200 mg, Oral, Nightly [3] PRN medications: clonazePAM, naloxone, ondansetron ODT OR ondansetron, polyethylene glycol (PEG) 3350, sodium chloride, sodium chloride 0.9% [4] Images from the original note were not included. PHYSICAL THERAPY [facility] Name/MRN: Jessy Mckeon ([id number]) Date: 12/31/2024 PT eval attempted. Pt declined mobility at this time due to pain level. Pt educated on benefits and purpose of PT eval, however pt continued to decline. Will re-attempt at later date/time as schedule permits. Pt reports she resides at [facility] and typically uses rollator for mobility. Suzette Perez, PT Hospitalist Progress Note 12/31/2024 Subjective: Admit Date: 12/30/2024 PCP: Edith Pierce MD Room#: [id number] A BRIEF HOSPITAL COURSE: Jessy is a 59 y.o. female with past medical history below who presents with chief complaint listed above. Pt was brought in from [place] AFTER recurrent falls, pt is sleepy in ER but wakes up to verbal stimuli, answers questions and then goes to sleep. Reports pain in her suprapubic area, decreased strength and uses a rollator at baseline to move around, for the past few days had 5-6 falls where she slid down from her chair, unsure if she hit her head, reports pain in her LLE. CT head obtained in the ED noted to be negative. X-ray of the left knee noted for severe tricompartmental osteoarthritis of the knee. Admitted for further evaluation and management. Interval History: Seen and evaluated this a.m., resting in bed. Denies any complaints at the present time. Reports pain is overall controlled. TSH noted to be 40.09 today. Patient is not sure if taking Synthroid at the facility. Supposed to be on 125 mcg daily. Adult diet Regular 24HR INTAKE/OUTPUT: Intake/Output Summary (Last 24 hours) at 12/31/2024 1304 Last data filed at 12/31/2024 0800 Gross per 24 hour Intake -- Output 700 ml Net -700 ml Past Medical History: Medical History[1] LABS: CBC: Recent Labs 12/30/24 1819 WBC 7.9 RBC 2.49* HGB 7.7* HCT 24.4* MCV 98.0 RDW 14.1 PLT 268 BMP: Recent Labs 12/30/24 1819 NA 135* K 4.0 CL 103 CO2 24 BUN 15 CREATININE 2.72* GLUCOSE 91 CALCIUM 8.5 ANIONGAP 8 LIVER PROFILE: Recent Labs 12/30/24 1819 AST 22 ALT <6 BILITOT 0.2 ALKPHOS 54 PROT 6.5 PT/INR: No results for input(s): "PROTIME", "INR" in the last 72 hours. CARDIAC ENZYMES: No results for input(s): "TROPONINI" in the last 72 hours. Procalcitonin: No results found for: "PROCAL" COVID-19 PCR: No results for input(s): "COVID19" in the last 72 hours. Objective: Vitals: BP 136/68 Pulse 69 Temp 36.7 C (98.1 F) (Temporal) Resp 16 Ht 5' 2.99" (1.6 m) Wt 296 lb 12.8 oz (135 kg) SpO2 96% BMI 52.59 kg/m Pulse Ox: SpO2 Av.6 % Min: 94 % Max: 100 % Supplemental O2: Physical Exam Vitals and nursing note reviewed. Cardiovascular: Rate and Rhythm: Normal rate and regular rhythm. Heart sounds: Normal heart sounds. Pulmonary: Effort: Pulmonary effort is normal. Breath sounds: Normal breath sounds. Abdominal: General: Bowel sounds are normal. Palpations: Abdomen is soft. Skin: General: Skin is warm and dry. Capillary Refill: Capillary refill takes less than 2 seconds. Neurological: Mental Status: She is alert and oriented to person, place, and time. Medications: Scheduled PRN Scheduled Meds[2] PRN Meds[3] Continuous Continuous Meds[4] Assessment Data: (CAT1) Reviewed 3 or more notes from different specialty or health system (each=1). (CAT1) Reviewed 3 or more labs/studies ordered by another provider not previously counted (each=1, panels count as 1). (LOW: 2x CAT1 or independent historian MOD: 3x CAT1 or 1x CAT3 EXTENSIVE: 3x CAT1 and 1x CAT3) Acute, acute on chronic, unstable/uncontrolled chronic problems/diagnoses: Generalized debility Recurrent falls Left leg pain Left leg severe osteoarthritis Hypothyroidism Stable chronic problems affecting care, new non-acute diagnoses: Depression and anxiety CKD stage IIIb Asperger syndrome Debility Chronic anemia HTN HLD Bipolar disorder Right foot laterally dislocated second MTP joint and laterally subluxed or dislocated first MTP joint Plan As a result of the above findings & factors, the following mgmt was pursued: - PT/OT to evaluate, LE pain likely contributing to multiple falls -TSH elevated at 40.0. Increase the dose of Synthroid to 137.5. Recommend repeat TSH in 4 weeks. -Add scheduled Tylenol for osteoarthritis - am labs, replace lytes prn - PT/OT/CM/SW - delirium precautions: increase activity and limit nighttime disturbances - DVT prophylaxis: enoxaparin and encourage ambulation Complexity: Acute illness or injury posing a threat to life or body function (HIGH). Chronic illness with severe exacerbation, progression, or side effect of tx (HIGH). Risk: Admission to hospital-level care was considered or occurred (HIGH). Advance Directive: Full Code Anticipated Discharge - Date - 01/02? - Location - SNF vs [place] - Pending the following - above eval, clinical progress Total time spent (which include face to face and non face to face encounters) : 55 minutes Extended Emergency Contact Information Primary Emergency Contact: Pita Jara [employer] Relation: Parent Preferred language: Northern Irish Mechanism Inspector needed? No Secondary Emergency Contact: EstefaniMamadou [place] Relation: Father Ghislaine Macedo, BETH Division of Hospitalist Medicine [facility] [1] Past Medical History: Diagnosis Date Acid reflux Anxiety Arthritis Asperger syndrome Bipolar disorder (HCC) Chronic kidney disease stage 4 kidney failure Chronic pain Depression Edema of both legs GERD (gastroesophageal reflux disease) Hemorrhoids Hyperlipidemia Hypertension Hypothyroidism Iron (Fe) deficiency anemia Nephrogenic diabetes insipidus (HCC) Pain management Retention of urine, unspecified Sciatica SOB (shortness of breath) GRANT Type II or unspecified type diabetes mellitus without mention of complication, not stated as uncontrolled (HCC) Urinary incontinence nightly [2] [START ON 01/01/2025] buprenorphine, 1 patch, TransDERmal, Weekly divalproex, 250 mg, Oral, TID WC DULoxetine, 60 mg, Oral, Daily [START ON 01/01/2025] ergocalciferol, 1,250 mcg, Oral, Weekly lamoTRIgine, 150 mg, Oral, Nightly levothyroxine, 125 mcg, Oral, Daily miconazole, , Topical, BID pantoprazole, 40 mg, Oral, qAM AC risperiDONE, 3 mg, Oral, Nightly rosuvastatin, 10 mg, Oral, Daily sodium chloride 0.9%, 5-40 mL, IntraVENous, q12h traZODone, 200 mg, Oral, Nightly [3] PRN medications: acetaminophen OR acetaminophen, clonazePAM, ondansetron ODT OR ondansetron, polyethylene glycol (PEG) 3350, sodium chloride, sodium chloride 0.9% [4] Nutrition Assessment Type and Reason for Visit: Initial, Wound Nutrition Recommendations/Plan: Continue a Regular diet and please document %PO intake in the flowsheets. Will monitor need for ONS once wound care evaluates. Monitor weight, labs, I/Os, skin integrity and overall nutrition status. RD to follow up weekly. Malnutrition Assessment: Malnutrition Status: No malnutrition (None suspected at this time) Context: Acute Illness Findings of the 6 clinical characteristics of malnutrition: Energy Intake: Unable to assess (Pt is a poor historian and difficult to understand. No diet/weight info per paper chart) Weight Loss: No significant weight loss Body Fat Loss: No significant body fat loss Muscle Mass Loss: No significant muscle mass loss Fluid Accumulation: Unable to assess Clinical Nursing Instructor Strength: Not Performed Nutrition Assessment: 59yo F with PMHx T2DM, GERD, CKD 4, HTN, HLD, Chronic Pain, Asperger's Syndrome, Hypothyroidism, Bipolar Disorder and Depression who presented from her Assisted Living Facility for recurrent falls in the past few days. Pt has had 5-6 falls where she slid down from her chair, unsure if she hit her head. She reports pain to her LLE, suprapubic area and decreased strength. Uses a rollator at baseline to move around. Pt drowsy in ER, labs showed CKD. L Knee XRay showed severe OA. Admitted with general debility. On a Regular diet. RD visited pt this AM, however pt very difficult to understand d/t rapid and unclear speech. She reports her UBW is "250# at least." States she likes strawberry and vanilla Ensure. No information available per paper chart. Pt known to RD from previous admit 09/2024 at which time she was noted to be a poor historian as well. Had a bed weight of 288# on 10/04/24. Estimated Daily Nutrient Needs: Energy Requirements Based On: Kcal/kg Weight Used for Energy Requirements: [place] Weight for Energy Calculation (kg): 52 kg Total Energy Requirements (kcals/day): 25-30 kcal/kg = 1265-3605 kcal/day Weight Used for Protein Requirements: [place] Weight in Kg Used for Protein Requirements: 52 kg Estimated Total Protein (g/day): 0.8-1.0 g/kg = 41-52 g/day Estimated Daily Total Fluid (ml/day): per MD Nutrition Related Findings: Labs: no A1c since 4.5 (09/2022), Cr 2.72, Meds: Synthroid Lives with: Other (Comment) (other resident ltf), Orientation Level: Oriented to place, Oriented to situation, Oriented to person, Disoriented to time, , Best Verbal Response: Oriented, Patient Behaviors/Mood: Anxious Feeding: Independent Room Service Room Service: Assist (may need help ordering meals) Adam Scale Score: 13. Wound Type: Wound Consult Pending Net IO Since Admission: -1,700 mL [12/31/24 1040] Gastrointestinal (WDL): Within Defined Limits Edema: , RUE Edema: None, LUE Edema: Trace, RLE Edema: Moderate pitting, indentation subsides rapidly, LLE Edema: Mild pitting, slight indentation Oxygen Therapy: None (Room air), , Current Nutrition Therapies: Adult diet Regular Current Oral Intake Average Meal Intake: Unable to assess Average Supplements Intake: None Ordered Anthropometric Measures: Height: 160 cm (5' 2.99") Current Body Weight: 135 kg (296 lb 12.8 oz) (12/31 bed) Admission Body Weight: 113 kg (250 lb) (12/30 stated) Usual Body Weight: (Per chart: 12/28/24 240#, 11/15 300# stated, 10/04 288# bed, 08/09 260#, 06/14 276#, 09/04/23 245#) [place] Body Weight (lbs) (Calculated): 115 lbs [place] Body Weight (Kg) (Calculated): 52 kg % [place] Body Weight (Calculated): 258.1 % BMI (kg/m2) (Calculated): 52.6 Weight Adjustment For: No Adjustment BMI Categories: Obese Class 3 (BMI 40.0 or greater) Nutrition Diagnosis: Increased nutrient needs related to increase demand for energy/nutrients as evidenced by wounds Nutrition Interventions: Nutrition Education/Counseling: No recommendation at this time Coordination of Nutrition Care: Continue to monitor while inpatient Goals: Goals: PO intake 75% or greater, by next RD assessment Nutrition Monitoring and Evaluation: Behavioral-Environmental Outcomes: None Identified Food/Nutrient Intake Outcomes: Food and Nutrient Intake Physical Signs/Symptoms Outcomes: Biochemical Data, Nutrition Focused Physical Findings, Skin, Weight, GI Status, Meal Time Behavior Discharge Planning: Too soon to determine Flavia Wang RD Contact: *[phone] documented in this encounter [facility] 01-15-2025 Note Formatting of this n ote might be different from the original. Chart reviewed. PASR, State level review and IRASEMA completed. Transport under will call in Roundtrip for today. Pt auth remains pending for , [facility]. Pt refused PT yesterday, therapy see today note entered today, as Ins may ask for updates. Await ins auth for dc. CM and SW will follow for dc planning needs. [facility] 01-15-2025 Note Formatting of this n ote might be different from the original. Chart reviewed. PASR, State level review and IRASEMA completed. Transport under will call in Roundtrip for today. Pt auth [facility]. Pt refused PT yesterday, therapy see today note entered today, as Ins may ask for updates. Await ins auth for dc. CM and SW will follow for dc planning needs. [facility] 01-15-2025 Hospital Discharge instructions Ashley Hayes MD - 01/15/2025 7:48 AM EDT Images from the original note were not included. Continuity of Care Form Patient Name: Jessy Mckeon : 1965 Admit date: 12/30/2024 Discharge date: 01/15/2025 Code Status Order: Full Code Advance Directives: N Admitting Physician: Jude Chase DO PCP: Edith Pierce MD Discharging Nurse: Jorge ORDRIGUEZ Discharging Hospital Unit/Room#: [id number] A Discharging Unit Emergency Contact: Extended Emergency Contact Information Primary Emergency Contact: Pita Jara [employer] Relation: Parent Preferred language: Northern Irish Mechanism Inspector needed? 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 CHOLECYSTECTOMY COLON SURGERY c-diff COLONOSCOPY 03/28/2018 no polyps UPPER GASTROINTESTINAL ENDOSCOPY 03/28/2018 Immunization History: Immunization History Administered Date(s) Administered Covid-19, Pfizer Bearden Top, Do Not Dilute, (Age 12 Y+), Im, L 09/22/2021, 02/03/2022 Influenza, Unspecified 07/04/2020 Influenza, injectable, quadrivalent 06/20/2023 Pfizer SARS-CoV-2 Vaccination 12/05/2020, 12/26/2020 Pneumococcal Conjugate PCV 13 07/17/2018 Pneumococcal Polysaccharide PPSV23 08/31/2019 Tdap 12/04/2018 Active Problems: Medical Problems Problem List * (Principal) Fall, initial encounter Urinary tract infection Urinary tract infection without hematuria, site unspecified Chronic renal disease, stage IV (HCC) Chronic kidney disease, stage 3b (HCC) Acute cystitis without hematuria Fluid overload Hypervolemia, unspecified hypervolemia type Lower extremity edema Urge incontinence of urine Dyspnea Anxiety Schizoaffective disorder (CMS/HCC) (HCC) Chest pain Iron (Fe) deficiency anemia GERD (gastroesophageal reflux disease) Depression Suicidal ideations Acute gastric ulcer without hemorrhage or perforation Hypothyroidism Overview Signed 05/27/2022 2:10 PM by Interface, Incoming Problems- [facility] Conversion Dr esposito Urinary incontinence Diverticulosis of large intestine without diverticulitis Chronic antral gastritis First degree hemorrhoids Nocturia Rotator cuff strain Osteoarthritis of patellofemoral joint Urge incontinence Urinary retention Overview Signed 05/27/2022 2:10 PM by Interface, Incoming Problems- [facility] Conversion Updating Deprecated Diagnoses Localized edema Morbid obesity with BMI of 45.0-49.9, adult (HCC) Hypomagnesemia JOSE A (acute kidney injury) (HCC) Chronic bilateral low back pain with bilateral sciatica Primary hypothyroidism Psychogenic polydipsia Pneumonia Hyponatremia Hypertension Bipolar disorder (HCC) Lung infiltrate on CT Chronic schizoaffective disorder (HCC) Isolation/Infection: No active isolations No active infections Nurse Assessment: Last Vital Signs: BP 112/56 Pulse 74 Temp 36.2 C (97.1 F) (Temporal) Resp 16 Ht 1.6 m (5' 2.99") Wt 117 kg (258 lb 3.2 oz) SpO2 96% BMI 45.75 kg/m Last documented pain score (0-10 scale): Last Weight: Wt Readings from Last 1 Encounters: 01/08/25 117 kg (258 lb 3.2 oz) Mental Status: IRASEMA Patient Mental Status: oriented and alert IV Access: IRASEMA IV Access: None Nursing Mobility/ADLs: Walking Total assistance Transfer Minimal assistance Bathing Minimal assistance Dressing Minimal assistance Toileting Minimal assistance Feeding Independent Automation And Controls Manager Minimal assistance Med Delivery no Wound Care Documentation and Therapy: Wound/Incision 12/30/24 Other (comment) Buttock Midline;Right (Active) Site Assessment [place] 01/12/25 0815 Kayley-Wound Assessment Fragile 01/09/252301 Wound Length (cm) 5 cm 01/07/25 0825 Wound Width (cm) 1 cm 01/07/25 0825 Wound Surface Area (cm^2) 3.93 cm^2 01/07/25 0825 Wound Depth (cm) 0.1 cm 12/30/24 231 Wound Volume (cm^3) 0.262 cm^3 12/30/24 231 Drainage Description Serosanguineous 12/30/24 2312 Odor None 01/09/25 2302 Drainage Amount None 01/09/25 230 Treatments Pharmaceutical agent 01/12/25 0815 Primary Dressing Open to air 01/14/252114 Number of days: 15 Wound/Incision 12/30/24 Other (comment) Buttock Left (Active) Site Assessment [place] 01/12/25 0815 Kayley-Wound Assessment Fragile 01/09/25 2302 Wound Length (cm) 6 cm 01/07/25 0825 Wound Width (cm) 6 cm 01/07/25824 Wound Surface Area (cm^2) 28.27 cm^2 01/07/25 08 Wound Depth (cm) 0.1 cm 01/07/25824 Wound Volume (cm^3) 1.885 cm^3 01/07/25 08 Wound Healing % 0 01/07/25 0825 Drainage Description Serosanguineous 12/30/24 2311 Odor None 01/09/25 230 Drainage Amount None 01/09/25 230 Treatments Pharmaceutical agent 01/12/25 0815 Primary Dressing Open to air 01/14/252114 Number of days: 15 Wound/Incision 12/30/24 Pressure Injury Leg Left;Upper;Posterior (Active) Site Assessment [place] 01/12/25 0815 Kayley-Wound Assessment Fragile 01/09/25 2302 Odor None 01/09/25 230 Drainage Amount None 01/09/25 2302 Treatments Pharmaceutical agent 01/12/25 0815 Primary Dressing Open to air 01/14/252114 Number of days: 15 Elimination: Continence: Bowel: no Bladder: no Urinary Catheter: None Colostomy/Ileostomy/Ileal Conduit: None Date of Last BM: 01/15/2025 Intake/Output Summary (Last 24 hours) at 01/15/2025 0746 Last data filed at 01/15/2025 0504 Gross per 24 hour Intake -- Output 1900 ml Net -1900 ml I/O last 3 completed shifts: In: - (0 mL/kg) Out: 3200 (27.3 mL/kg) [Urine:3200 (0.8 mL/kg/hr)] Weight: 117.1 kg Safety Concerns: history of falls (last 30 days) and at risk for falls Impairments/Disabilities: none Nutrition Therapy: Current Nutrition Therapy: Oral diet: general Routes of Feeding: oral Liquids: thin liquids Daily Fluid Restriction: no Last Modified Barium Swallow with Video (Video Swallowing Test): not done Treatments at the Time of Hospital Discharge: Respiratory Treatments: n/a Oxygen Therapy: is not on home oxygen therapy. Ventilator: No ventilator support Rehab Therapies: physical therapy and occupational therapy Weight Bearing Status/Restrictions: no restriction Other Medical Equipment (for information only, NOT a DME order): walker Other Treatments: n/a Patient's personal belongings (please select all that are sent with patient): Patients belongings will be packed and sent w/patient. RN SIGNATURE: MANAGEMENT/SOCIAL WORK SECTION Inpatient Status Date: 12/30/2024 Discharging to Facility/ Agency Name: [facility] Address: [address] [place] [address] [address] [place] [address] Dialysis Facility (if applicable) Name: Address: Dialysis Schedule: Phone: Fax: Clinical Rehab Specialist/Egg Breaker signature: ICIAN SECTION Name: Jessy Mckeon Prognosis: fair Condition at Discharge: stable Rehab Potential (if transferring to Rehab): fair Recommended Labs or Other Treatments After Discharge: cbc, cmp The individual is being admitted to a nursing facility directly from an [facility] or a unit of a [facility] that is not operated by or licensed by [facility] under section 5119.14 or 5160-3-15.1 5 The individual requires the level of services provided by a nursing facility for the condition for which he or she was treated in the hospital and, Physician Certification: I certify the above information and transfer of Jessy Mckeon is necessary for the continuing treatment of the diagnosis listed and that she requires custodial facility for less than 30 days. Update Admission H&P: No change in H&P PHYSICIAN SIGNATURE: The following attachments cannot be sent through Care Everywhere.Knee Pain Discharge Instructions (Northern Irish)documented in this encounter [facility] 01-14-2025 Note Problem: Potential f or Compromised Skin Integrity Goal: Skin Integrity is Maintained or Improved Outcome: Progressing Goal: Nutritional status is improving Outcome: Progressing [facility] 01-14-2025 Plan of care note Problem: Potential for Compromised Skin Integrity Goal: Skin Integrity is Maintained or Improved Outcome: Progressing Goal: Nutritional status is improving Outcome: Progressing [facility] 01-14-2025 Note PHYSICAL THERAPY [facility] Name/MRN: Jessy Mckeon ([id number]) Date: 01/14/2025 Therapy tx session attempted. Pt states "I would like to nap". Despite education and encouragement pt refuses (3x) activity this date. Heather Costa, IVETTE [facility] 01-14-2025 Note Problem: Potential f or Compromised Skin Integrity Goal: Skin Integrity is Maintained or Improved Outcome: Progressing Problem: Pain - Adult Goal: Verbalizes/displays adequate comfort level or baseline comfort level Outcome: Progressing [facility] 01-14-2025 Plan of care note Problem: Potential for Compromised Skin Integrity Goal: Skin Integrity is Maintained or Improved Outcome: Progressing Problem: Pain - Adult Goal: Verbalizes/displays adequate comfort level or baseline comfort level Outcome: Progressing [facility] 01-13-2025 Note Problem: Potential f or Compromised Skin Integrity Goal: Skin Integrity is Maintained or Improved Outcome: Progressing Goal: Nutritional status is improving Outcome: Progressing [facility] 01-13-2025 Plan of care note Problem: Potential for Compromised Skin Integrity Goal: Skin Integrity is Maintained or Improved Outcome: Progressing Goal: Nutritional status is improving Outcome: Progressing [facility] 01-13-2025 Note Formatting of this n ote is different from the original. Care Management Progress Note 01/13/25 0847 Rapid Rounds Attendance Clinical Rehab Specialist Planned Discharge Disposition [facility], AUTH pending Today we still await Attending completion of discharge workflow;Facility pre-cert This managed care specialist reviewed and completed weekend CarePort task requesting to follow this patient, assisting with discharge planning. Electronic chart and CarePort were reviewed. Contacted facility for update on AUTH status. AUTH remains pending at this time. Length of Stay (Days): 0 GMLOS: No GMLOS Documented T [facility] 01-13-2025 Note Formatting of this n ote is different from the original. Care Management Progress Note 01/13/25 0847 Rapid Rounds Attendance Clinical Rehab Specialist Planned Discharge Disposition [facility], AUTH pending Today we still await Attending completion of discharge workflow;Facility pre-cert This managed care specialist reviewed and completed weekend CarePort task requesting to follow this patient, assisting with discharge planning. Electronic chart and CarePort were reviewed. Contacted facility for update on AUTH status. AUTH remains pending at this time. Length of Stay (Days): 0 GMLOS: No GMLOS Documented [facility] 01-13-2025 Plan of care note Problem: Knowledge Deficit Goal: Patient/family/caregiver demonstrates understanding of disease process, treatment plan, medications, and discharge instructions Outcome: Progressing Problem: Potential for Compromised Skin Integrity Goal: Skin Integrity is Maintained or Improved Outcome: Progressing Goal: Nutritional status is improving Outcome: Progressing Problem: Urinary Incontinence Goal: Perineal skin integrity is maintained or improved Outcome: Progressing Problem: Pain - Adult Goal: Verbalizes/displays adequate comfort level or baseline comfort level Outcome: Progressing Problem: Safety - Adult Goal: Free from fall injury Outcome: Progressing Problem: Discharge Planning Goal: Discharge to home or other facility with appropriate resources Outcome: Progressing Problem: Chronic Conditions and Co-morbidities Goal: Patient's chronic conditions and co-morbidity symptoms are monitored and maintained or improved Outcome: Progressing Problem: Inadequate Airway Clearance Goal: Patient will maintain patent airway Outcome: Progressing Goal: Patient will achieve/maintain normal respiratory rate/effort Outcome: Progressing Problem: Inadequate Breathing Pattern Goal: Patient will maintain effective ventilation Outcome: Progressing Problem: Anxiety Goal: Anxiety is at manageable level Outcome: Progressing Problem: Activity Intolerance/Impaired Mobility Goal: Mobility/activity is maintained at optimum level for patient Outcome: Progressing Problem: Inadequate Coping Goal: Demonstrates ability to cope effectively Outcome: Progressing Goal: Verbalizes adaptive coping mechanisms Outcome: Progressing Goal: Verbalizes personal strengths Outcome: Progressing Problem: Discharge Barriers Goal: My discharge needs are met Outcome: Progressing [facility] 01-12-2025 Plan of care note Problem: Knowledge Deficit Goal: Patient/family/caregiver demonstrates understanding of disease process, treatment plan, medications, and discharge instructions Outcome: Progressing Problem: Potential for Compromised Skin Integrity Goal: Skin Integrity is Maintained or Improved Outcome: Progressing Problem: Urinary Incontinence Goal: Perineal skin integrity is maintained or improved Outcome: Progressing Problem: Pain - Adult Goal: Verbalizes/displays adequate comfort level or baseline comfort level Outcome: Progressing Problem: Safety - Adult Goal: Free from fall injury Outcome: Progressing Problem: Discharge Planning Goal: Discharge to home or other facility with appropriate resources Outcome: Progressing [facility] 01-12-2025 Note Formatting of this n ote might be different from the original. CM tasked to follow over the weekend. Msg sent to [facility] remains pending. CM to assist with DC once auth is back. [facility] 01-12-2025 Note Formatting of this n ote might be different from the original. CM tasked to follow over the weekend. Msg sent to [facility] remains pending. CM to assist with DC once auth is back. [facility] 01-12-2025 Plan of care note Problem: Knowledge Deficit Goal: Patient/family/caregiver demonstrates understanding of disease process, treatment plan, medications, and discharge instructions Outcome: Progressing Problem: Potential for Compromised Skin Integrity Goal: Skin Integrity is Maintained or Improved Outcome: Progressing Goal: Nutritional status is improving Outcome: Progressing Problem: Urinary Incontinence Goal: Perineal skin integrity is maintained or improved Outcome: Progressing Problem: Pain - Adult Goal: Verbalizes/displays adequate comfort level or baseline comfort level Outcome: Progressing Problem: Safety - Adult Goal: Free from fall injury Outcome: Progressing Problem: Discharge Planning Goal: Discharge to home or other facility with appropriate resources Outcome: Progressing Problem: Chronic Conditions and Co-morbidities Goal: Patient's chronic conditions and co-morbidity symptoms are monitored and maintained or improved Outcome: Progressing Problem: Inadequate Airway Clearance Goal: Patient will maintain patent airway Outcome: Progressing Goal: Patient will achieve/maintain normal respiratory rate/effort Outcome: Progressing Problem: Inadequate Breathing Pattern Goal: Patient will maintain effective ventilation Outcome: Progressing Problem: Anxiety Goal: Anxiety is at manageable level Outcome: Progressing Problem: Activity Intolerance/Impaired Mobility Goal: Mobility/activity is maintained at optimum level for patient Outcome: Progressing Problem: Inadequate Coping Goal: Demonstrates ability to cope effectively Outcome: Progressing Goal: Verbalizes adaptive coping mechanisms Outcome: Progressing Goal: Verbalizes personal strengths Outcome: Progressing Problem: Discharge Barriers Goal: My discharge needs are met Outcome: Progressing [facility] 01-11-2025 Plan of care note Problem: Potential for Compromised Skin Integrity Goal: Skin Integrity is Maintained or Improved 01/11/2025 1633 by Maura Smith RN Outcome: Progressing 01/11/2025 1632 by Maura Smith RN Outcome: Progressing Goal: Nutritional status is improving 01/11/2025 1633 by Maura Smith RN Outcome: Progressing 01/11/2025 1632 by Maura Smith RN Outcome: Progressing Problem: Pain - Adult Goal: Verbalizes/displays adequate comfort level or baseline comfort level 01/11/2025 1633 by Maura Smith RN Outcome: Progressing 01/11/2025 1632 by Maura Smith RN Outcome: Progressing Problem: Safety - Adult Goal: Free from fall injury 01/11/2025 1633 by Maura Smith RN Outcome: Progressing 01/11/2025 1632 by Maura Smith RN Outcome: Progressing [facility] 01-11-2025 Plan of care note Problem: Knowledge Deficit Goal: Patient/family/caregiver demonstrates understanding of disease process, treatment plan, medications, and discharge instructions Outcome: Progressing Problem: Potential for Compromised Skin Integrity Goal: Skin Integrity is Maintained or Improved Outcome: Progressing Goal: Nutritional status is improving Outcome: Progressing Problem: Pain - Adult Goal: Verbalizes/displays adequate comfort level or baseline comfort level Outcome: Progressing [facility] 01-11-2025 Note Formatting of this n ote might be different from the original. SW update: Updated Will Call in Roundtrip. Trip is now on calendar for 01/14. Completed weekend task for weekend TCC to check if auth comes back over the weekend. Received call from eva Melton CM, asking for a return call. SW attempted to call CM however had to leave asking for a return call. . [facility] 01-11-2025 Note Formatting of this n ote might be different from the original. SW update: Updated Will Call in Roundtrip. Trip is now on calendar for 01/14. Completed weekend task for weekend TCC to check if auth comes back over the weekend. Received call from eva Melton CM, asking for a return call. SW attempted to call CM however had to leave asking for a return call. . [facility] 01-11-2025 Note Formatting of this n ote might be different from the original. SW follow up: Checked HENS. PASRR is now updated with correct first name for pt. Sent careport message to [facility], asking for update on auth and alerting PASRR is updated. Awaiting auth. . [facility] 01-11-2025 Note Formatting of this n ote might be different from the original. SW follow up: Checked HENS. PASRR is now updated with correct first name for pt. Sent careport message to [facility], asking for update on auth and alerting PASRR is updated. Awaiting auth. . [facility] 01-10-2025 Note Formatting of this n ote might be different from the original. SW follow up: SW completed Will Call in Roundtrip. Will Call on calendar date 01/11. Awaiting insurance auth, for pt to go to [facility]. . [facility] 01-10-2025 Note Formatting of this n ote might be different from the original. SW follow up: SW completed Will Call in Roundtrip. Will Call on calendar date 01/11. Awaiting insurance auth, for pt to go to [facility]. . [facility] 01-09-2025 Plan of care note Problem: Potential for Compromised Skin Integrity Goal: Nutritional status is improving Outcome: Progressing Problem: Urinary Incontinence Goal: Perineal skin integrity is maintained or improved Outcome: Progressing Problem: Pain - Adult Goal: Verbalizes/displays adequate comfort level or baseline comfort level Outcome: Progressing Problem: Knowledge Deficit Goal: Patient/family/caregiver demonstrates understanding of disease process, treatment plan, medications, and discharge instructions Outcome: Not Progressing [facility] 01-09-2025 Note Formatting of this n ote might be different from the original. Updated Clinicals placed to [facility] via Careport per TCC request. [facility] 01-09-2025 Note Formatting of this n ote might be different from the original. Updated Clinicals placed to [facility] via Careport per TCC request. [facility] 01-09-2025 Note Formatting of this n ote might be different from the original. Chart reviewed. ANTON noted PASRR level II review completed. Auth 01/08. PT/OT notes in chart today. Tasked ATHLETIC GEAR CUSTODIAN to send updated clinical PT/OT today and IM yesterday to [facility]. Careport message to [facility] to report sending updated clinical shortly, please start auth and keep us posted. [facility]. ANTON and CM will follow for dc planning. [facility] 01-09-2025 Note Formatting of this n ote might be different from the original. Chart reviewed. ANTON noted PASRR level II review completed. Auth 01/08. PT/OT notes in chart today. Tasked ATHLETIC GEAR CUSTODIAN to send updated clinical PT/OT today and IM yesterday to [facility]. Careport message to [facility] to report sending updated clinical shortly, please start auth and keep us posted. Plan [facility] pending INS auth. ANTON and CM will follow for dc planning. [facility] 01-09-2025 Note Formatting of this n ote might be different from the original. ANTON follow up: Checked HENS,Level II PASRR now completed. ANTON noticed pt first name was entered incorrectly into [employer]. ANTON reached out to [facility], for advise on how to correct this mistake. advised to call [facility] , to request change and update with correct first name. [facility] Level II completed. Once we have PT/OT notes, will send over to SNF, as auth yesterday. Need updated auth. . 01/09/25 Called [facility], attempted to speak with DON to update on discharge planning. Had to leave a vm. In the vm updated on discharge plan. Asked DON to call if there were any questions. . N follow up: Sent updated PT/OT and MD notes to SNF requesting to restart auth. . N follow up: No call back from [facility]. ANTON sent e-mail to [facility] DEL CID, with request to change first name in [employer]. Received e-mail response back, [facility], with DLE CID cc'ing the [facility] [employer] help desk, asking help desk to assist in fixing error. . [facility] [employer] 01-09-2025 Note Formatting of this n ote might be different from the original. ANTON follow up: Checked [facility],Level II PASRR now completed. SW noticed pt first name was entered incorrectly into HENS. ANTON reached out to [facility], for advise on how to correct this mistake. advised SW to call [facility] , to request change and update with correct first name. Sent message to [facility], updating Level II completed. Once we have PT/OT notes, will send over to SNF, as auth yesterday. Need updated auth. . 01/09/25 Called [facility], attempted to speak with DON to update on discharge planning. Had to leave a vm. In the vm updated on discharge plan. Asked DON to call if there were any questions. . N follow up: Sent updated PT/OT and MD notes to SNF requesting to restart auth. . N follow up: No call back from [facility]. ANTON sent e-mail to [facility], with request to change first name in HENS. Received e-mail response back, [facility], with DEL CID cc'ing the [facility] help desk, asking help desk to assist in fixing error. . [facility] 01-08-2025 Note Formatting of this n ote might be different from the original. SW follow up: SW checked HENS, Level II still pending. Attempted to call [facility] DON again. DON didn't answer and vm is full, unable to leave a vm. . [facility] 01-08-2025 Note Formatting of this n ote might be different from the original. SW follow up: SW checked HENS, Level II still pending. Attempted to call [facility] DON again. DON didn't answer and vm is full, unable to leave a vm. . [facility] 01-08-2025 Note Formatting of this n ote might be different from the original. Chart reviewed. Pt VS and labs noted. Awaiting level 2 review for PASRR to go to SNF. PT/OT see tomorrow entered, prior rec SNF. Plan: [facility], pending review. SW and CM following for dc planning needs. [facility] 01-08-2025 Note Formatting of this n ote might be different from the original. Chart reviewed. Pt VS and labs noted. Awaiting level 2 review for PASRR to go to SNF. PT/OT see tomorrow entered, prior rec SNF. Plan: [facility], pending review. SW and CM following for dc planning needs. T [facility] 01-06-2025 Plan of care note Problem: Knowledge Deficit Goal: Patient/family/caregiver demonstrates understanding of disease process, treatment plan, medications, and discharge instructions Outcome: Not Progressing Problem: Potential for Compromised Skin Integrity Goal: Skin Integrity is Maintained or Improved Outcome: Not Progressing Problem: Urinary Incontinence Goal: Perineal skin integrity is maintained or improved Outcome: Not Progressing Problem: Pain - Adult Goal: Verbalizes/displays adequate comfort level or baseline comfort level Outcome: Not Progressing Problem: Discharge Planning Goal: Discharge to home or other facility with appropriate resources Outcome: Not Progressing Problem: Chronic Conditions and Co-morbidities Goal: Patient's chronic conditions and co-morbidity symptoms are monitored and maintained or improved Outcome: Not Progressing Problem: Anxiety Goal: Anxiety is at manageable level Outcome: Not Progressing Problem: Activity Intolerance/Impaired Mobility Goal: Mobility/activity is maintained at optimum level for patient Outcome: Not Progressing Problem: Inadequate Coping Goal: Demonstrates ability to cope effectively Outcome: Not Progressing Goal: Verbalizes adaptive coping mechanisms Outcome: Not Progressing Goal: Verbalizes personal strengths Outcome: Not Progressing Problem: Discharge Barriers Goal: My discharge needs are met Outcome: Not Progressing Problem: Problem Interventions Goal: Assess Nutritional Intake Outcome: Not Progressing T [facility] 01-06-2025 Nurse Note Rn gave nightly meds, incluing prns requested. Head to toe assessment done. Pt requested a diet gignger it was given nothing else needed. Bed in lowest position, brakes locked, bed alarm on and call light in reach. T [facility] 01-06-2025 Nurse Note RN came into room to re-introduce self to pt, update white boards and go over nightly meds. Pt was awake laying flat in bed. Pt states her pain is better at 3/10. Pt is hyper-verbal but pleasant. Pt asked about her bloodwork and was pleased that they aren't taking away her water. Pt is okay with all nightly meds and wants her prn klonopin and melationin. Pt needs nothing else at this time. Bed in lowest position, brakes locked and call light with in reach. [facility] 01-06-2025 Plan of care note Continue to monitor skin. [facility] 01-05-2025 Plan of care note Problem: Knowledge Deficit Goal: Patient/family/caregiver demonstrates understanding of disease process, treatment plan, medications, and discharge instructions Outcome: Not Progressing Problem: Potential for Compromised Skin Integrity Goal: Skin Integrity is Maintained or Improved Outcome: Not Progressing Problem: Urinary Incontinence Goal: Perineal skin integrity is maintained or improved Outcome: Not Progressing Problem: Pain - Adult Goal: Verbalizes/displays adequate comfort level or baseline comfort level Outcome: Not Progressing Problem: Discharge Planning Goal: Discharge to home or other facility with appropriate resources Outcome: Not Progressing Problem: Chronic Conditions and Co-morbidities Goal: Patient's chronic conditions and co-morbidity symptoms are monitored and maintained or improved Outcome: Not Progressing Problem: Anxiety Goal: Anxiety is at manageable level Outcome: Not Progressing Problem: Activity Intolerance/Impaired Mobility Goal: Mobility/activity is maintained at optimum level for patient Outcome: Not Progressing Problem: Inadequate Coping Goal: Demonstrates ability to cope effectively Outcome: Not Progressing Goal: Verbalizes adaptive coping mechanisms Outcome: Not Progressing Goal: Verbalizes personal strengths Outcome: Not Progressing Problem: Discharge Barriers Goal: My discharge needs are met Outcome: Not Progressing [facility] 01-05-2025 Nurse Note Pt asked for water to be refilled and a diet kathy kun. [facility] 01-05-2025 Nurse Note Rn passed nightly meds and talked to pt about getting blood work done tonight and pt agreed. [facility] 01-05-2025 Nurse Note RN went into room to introduce self to pt, update white board and go over nightly meds. Pt was awake laying in bed and okay with all meds. Pt needed nothing else at this time. Bed in lowest position, brakes locked and call light with in reach, T [facility] 01-05-2025 Nurse Note Patient refused to be turned to apply ET mix. Patient educated on the importance of ET mix. T [facility] 01-05-2025 Nurse Note Patient refused bloodwork for dayshift RN. Provider notified. T [facility] 01-05-2025 Note Formatting of this n ote might be different from the original. HEAD OF TRAINING AND DEVELOPMENT asked to review [facility] for return of Level II Pasrr. PAULINA states that it was referred on 01/02/25 with no results back at this time. TCC notified. T [facility] 01-05-2025 Note Formatting of this n ote might be different from the original. HEAD OF TRAINING AND DEVELOPMENT asked to review [facility] for return of Level II Pasrr. PAULINA states that it was referred on 01/02/25 with no results back at this time. TCC notified. [facility] 01-05-2025 Nurse Note Patient refusing morning blood work. Provider notified. Lea Clarke RN [facility] 01-05-2025 Plan of care note Problem: Knowledge Deficit Goal: Patient/family/caregiver demonstrates understanding of disease process, treatment plan, medications, and discharge instructions Outcome: Progressing Problem: Potential for Compromised Skin Integrity Goal: Skin Integrity is Maintained or Improved Outcome: Progressing Goal: Nutritional status is improving Outcome: Progressing Problem: Urinary Incontinence Goal: Perineal skin integrity is maintained or improved Outcome: Progressing Problem: Pain - Adult Goal: Verbalizes/displays adequate comfort level or baseline comfort level Outcome: Progressing Problem: Safety - Adult Goal: Free from fall injury Outcome: Progressing Problem: Discharge Planning Goal: Discharge to home or other facility with appropriate resources Outcome: Progressing Problem: Chronic Conditions and Co-morbidities Goal: Patient's chronic conditions and co-morbidity symptoms are monitored and maintained or improved Outcome: Progressing Problem: Inadequate Airway Clearance Goal: Patient will maintain patent airway Outcome: Progressing Goal: Patient will achieve/maintain normal respiratory rate/effort Outcome: Progressing Problem: Inadequate Breathing Pattern Goal: Patient will maintain effective ventilation Outcome: Progressing Problem: Anxiety Goal: Anxiety is at manageable level Outcome: Progressing Problem: Activity Intolerance/Impaired Mobility Goal: Mobility/activity is maintained at optimum level for patient Outcome: Progressing Problem: Inadequate Coping Goal: Demonstrates ability to cope effectively Outcome: Progressing Goal: Verbalizes adaptive coping mechanisms Outcome: Progressing Goal: Verbalizes personal strengths Outcome: Progressing Problem: Discharge Barriers Goal: My discharge needs are met Outcome: Progressing Problem: Problem Interventions Goal: Assess Nutritional Intake Outcome: Progressing [facility] 01-04-2025 Plan of care note Problem: Knowledge Deficit Goal: Patient/family/caregiver demonstrates understanding of disease process, treatment plan, medications, and discharge instructions Outcome: Progressing Problem: Potential for Compromised Skin Integrity Goal: Skin Integrity is Maintained or Improved Outcome: Progressing Goal: Nutritional status is improving Outcome: Progressing Problem: Pain - Adult Goal: Verbalizes/displays adequate comfort level or baseline comfort level Outcome: Progressing [facility] 01-04-2025 Note Formatting of this n ote might be different from the original. SW follow up: SW checked HEN, Level II is still pending. SW to place weekend TCC task to checked HENS over weekend, in case Level II gets completed later. SNF indicated they would be checking as well. Auth is good until 01/08. . T [facility] 01-04-2025 Note Formatting of this n ote might be different from the original. SW follow up: SW checked HEN, Level II is still pending. SW to place weekend TCC task to checked HENS over weekend, in case Level II gets completed later. SNF indicated they would be checking as well. Auth is good until 01/08. . T [facility] 01-04-2025 Nurse Note Patient refusing morning blood work. Provider notified. [facility] 01-03-2025 Note Formatting of this n ote might be different from the original. SW follow up: Checked HENS Level II still pending. Received secure chat from [employer] [facility], they have auth [id number]. Pt needs to admit before 01/08 or will need new auth. ANTON attempted to call MELODY at [place] with an update on discharge plans. DON out of office and vm full. Will try again . . [facility] 01-03-2025 Note Formatting of this n ote might be different from the original. SW follow up: Checked HENS Level II still pending. Received secure chat from [facility], they have auth [id number]. Pt needs to admit before 01/08 or will need new auth. ANTON attempted to call DON at [place] with an update on discharge plans. DON out of office and vm full. Will try again . . [facility] 01-03-2025 Nurse Note Patient refusing morning blood work. Provider notified. [facility] 01-02-2025 Note Formatting of this n ote might be different from the original. ANTON follow up: Sent message via [employer]port to [facility], asking facility to go ahead and start auth. . N follow up: [facility] requesting PASRR/7000 in order to submit for auth. Pt is in OBS status, requires PASRR. Reviewed chart. Met with pt, to ask some of the PASRR questions. Pt diag with Renee, along with mental health issues. Pt denies any involvement with DD Board. Receives psychiatric care at [facility] outpatient Called [facility], confirmed with Renee Santo diag does fall under DEL CID diag in HENS. SW completed PASRR in HENS. Pt requires a state Level II DEL CID review, due to Asperger diag. ANTON updated SNF. . [facility] 01-02-2025 Note Formatting of this n ote might be different from the original. SW follow up: Sent message via [employer] to [facility], asking facility to go ahead and start auth. . follow up: [facility] requesting PASRR/7000 in order to submit for auth. Pt is in OBS status, requires PASRR. Reviewed chart. Met with pt, to ask some of the PASRR questions. Pt diag with Renee, along with mental health issues. Pt denies any involvement with DD Board. Receives psychiatric care at [facility], confirmed with Gal, Renee diag does fall under DEL CID diag in HENS. SW completed PASRR in HENS. Pt requires a state Level II DEL CID review, due to Asperger diag. SW updated SNF. . [facility] 01-02-2025 Consult note Associated Order (s): INPATIENT CONSULT TO WOUND CARE PROVIDERS Images from the original note were not included. [facility] CONSULT Note Jessy Mckeon AGE: 59 y.o. GENDER: female : 1965 Subjective: HISTORY of PRESENT ILLNESS HPI Jessy Mckeon is a 59 y.o. female who presents for a wound consult. HPI: 59 y.o. female who presents to the emergency department for knee pain after a fall. Patient lives in an assisted living facility and has had multiple falls over the last week. EMS states that they have been with her 9 times in the last week just for multiple falls. She states today she slid out of her chair and hurt her left knee. She ambulates with a rollator at baseline. Denies any head injury. Wound Care consulted for sacral wound. PAST MEDICAL HISTORY Medical History[1] PAST SURGICAL HISTORY Surgical History[2] FAMILY HISTORY Family History[3] SOCIAL HISTORY Social History[4] ALLERGIES Allergies[5] MEDICATIONS Medications Ordered Prior to Encounter[6] REVIEW OF SYSTEMS Pertinent items are noted in HPI. Objective: BP 149/83 Pulse 76 Temp 36.5 C (97.7 F) (Temporal) Resp 18 Ht 5' 2.99" (1.6 m) Wt 296 lb 12.8 oz (135 kg) SpO2 95% BMI 52.59 kg/m PHYSICAL EXAM General appearance: in no apparent distress, in no respiratory distress and acyanotic, alert, and cooperative Skin: warm and dry Pulmonary: Normal effort, no respiratory distress, no cyanosis Abdomen: soft, nontender, and nondistended Extremities: warm and dry Sacrum - all tissue intact, blanchable, pink, fragile, peeling Left post thigh - 3.0 x 3.0 x 0.1cm - cluster of 4 wounds with full thickness tissue loss into subcutaneous tissue, kayley wound tissue intact 01/02/25 LABS CBC: Lab Results Component Value Date WBC 7.5 01/02/2025 HGB 7.1 (L) 01/02/2025 HGB 12/30/2024 Comment: Unable to perform hemoglobin due to microsample. HCT 21.9 (L) 01/02/2025 MCV 96.1 01/02/2025 PLT 303 01/02/2025 BMP: Lab Results Component Value Date NA 132 (L) 01/02/2025 K 4.2 01/02/2025 CL 102 01/02/2025 CO2 21 (L) 01/02/2025 BUN 14 01/02/2025 CREATININE 2.30 (H) 01/02/2025 PT/INR: No results found for: "PROTIME", "INR" Prealbumin: No results found for: PREALBUMIN Albumin:No components found for: LABALBU Sed Rate:No results found for: SEDRATE Micro: No components found for: BC Assessment/Plan: Nursing staff to perform dressing change: Sacral MASD d/t friction/fluids: Left post thigh stage 3 pressure injury (POA): -cleanse with soap and water, apply ET mix TID and PRN, leave GRAIN HANDLER -waffle chair cushion if up in chair -Q2hr/PRN turns -glide sheets for T&R -continence checks Q1-2 Hrs/PRN Nutritional support Wound Care to follow Recommend to follow up at [facility] Outpatient wound care center after hospital discharge. Any questions or concerns please secure chat "ACH wound/ostomy". Thank you for the consult! I personally obtained the pal and critical portions of the history and physical exam. I reviewed the labs, imaging studies, and electronic medical record. I reviewed the chart documentation and discussed the patient with treatment team members. I have edited the note to reflect my clinical findings and my assessment and plan. Please note, the time of this note does not reflect the time I saw this patient today, but the time of this documentaton. Portions of this note including HPI, ROS, impression/plan, and examination may have been copied forward from admission to today as to provide important historical information essential in contributing to medical decision making. Documentation has been reviewed and edited as necessary to support clinical decision making for today's visit and to reflect my own independent evaluation of this patient. Decision making for today's visit and to reflect my own independent evaluation of this patient. [1] Past Medical History: Diagnosis Date Acid reflux Anxiety Arthritis Asperger syndrome Bipolar disorder (HCC) Chronic kidney disease stage 4 kidney failure Chronic pain Depression Edema of both legs GERD (gastroesophageal reflux disease) Hemorrhoids Hyperlipidemia Hypertension Hypothyroidism Iron (Fe) deficiency anemia Nephrogenic diabetes insipidus (HCC) Pain management Retention of urine, unspecified Sciatica SOB (shortness of breath) GRANT Type II or unspecified type diabetes mellitus without mention of complication, not stated as uncontrolled (HCC) Urinary incontinence nightly [2] Past Surgical History: Procedure Laterality Date 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 CHOLECYSTECTOMY COLON SURGERY c-diff COLONOSCOPY 03/28/2018 no polyps UPPER GASTROINTESTINAL ENDOSCOPY 03/28/2018 [3] Family History Problem Relation Name Age of Onset Hypertension Mother Cancer Father Colon cancer Maternal Grandmother Cancer Brother [4] Social History Tobacco Use Smoking status: Former Smokeless tobacco: Never Vaping Use Vaping status: Never Used Substance Use Topics Alcohol use: No Alcohol/week: 0.0 standard drinks of alcohol Drug use: No [5] Allergies Allergen Reactions Antihistamines, Chlorpheniramine-Type Benztropine Disorientation and loss of muscle control Diphenhydramine Disorientation Nsaids CKD Stage 3 Other Anticholinergics: cause disorientation and loss of muscle control Venlafaxine Hives [6] No current facility-administered medications on file prior to encounter. Current Outpatient Medications on File Prior to Encounter Medication Sig Dispense Refill acetaminophen (Tylenol) 325 MG tablet Take by mouth. amoxicillin (Amoxil) 500 MG capsule Take 2 capsules (1,000 mg) by mouth every 12 hours for 10 days. 40 capsule 0 bisacodyl (Dulcolax) 10 MG suppository Insert into the rectum. divalproex (Depakote ER) 250 MG 24 hr tablet Take 1 tablet (250 mg) by mouth in the morning and 1 tablet (250 mg) at noon and 1 tablet (250 mg) in the evening. Take with meals. 90 tablet 2 DULoxetine (Cymbalta) [address] capsule Take 1 capsule (60 mg) by mouth daily. Do not crush or chew. 30 capsule 3 lamoTRIgine (LaMICtal) 150 MG tablet Take 1 tablet (150 mg) by mouth Nightly. 30 tablet 2 metoprolol tartrate (Lopressor) 100 MG tablet Take 1 tablet (100 mg) by mouth 2 times daily. 60 tablet 3 omeprazole (PriLOSEC) [address] capsule Take 1 capsule (40 mg) by mouth every morning (before breakfast). Do not crush or chew. 90 capsule 1 risperiDONE (RisperDAL) 3 MG tablet Take 1 tablet (3 mg) by mouth Nightly. 30 tablet 3 rosuvastatin (Crestor) 10 MG tablet TAKE 1 TABLET BY MOUTH DAILY 90 tablet 1 traZODone (Desyrel) 100 MG tablet Take 2 tablets (200 mg) by mouth Nightly. 60 tablet 3 buprenorphine (Butrans) 20 MCG/HR Place 1 patch on the skin. (Patient not taking: Reported on 12/30/2024) clonazePAM (KlonoPIN) 0.5 MG tablet Take 1 tablet (0.5 mg) by mouth 2 times daily as needed for anxiety. 60 tablet 1 epoetin molly-epbx (Retacrit) 61381 UNIT/ML injection Inject 10,000 Units under the skin. ergocalciferol (Vitamin D-2) 1.25 MG (70347 UT) capsule Take 1.25 mg by mouth 1 (one) time per week. furosemide (Lasix) 40 MG tablet Take 1 tablet (40 mg) by mouth daily. 30 tablet 1 hydrALAZINE (Apresoline) 25 MG tablet Take 1 tablet (25 mg) by mouth 3 times daily. 90 tablet 1 levothyroxine (Synthroid, Levoxyl) 125 MCG tablet Take 1 tablet (125 mcg) by mouth daily. Do not start before August 06, 2024. (Patient not taking: Reported on 12/30/2024) MELATONIN PO Take by mouth. nystatin (Mycostatin) 988116 UNIT/GM powder Apply topically 2 times daily. Apply to groin 60 g 0 polyethylene glycol, PEG, 3350 (Miralax) 17 g packet Take by mouth. Polysaccharide Iron Complex (IFEREX 150 PO) Take by mouth. Daily [id number] Cosigned by Los Wilks DO at 01/14/2025 4:59 PM EDT [facility] 01-02-2025 Consult note Associated Order (s): INPATIENT CONSULT TO WOUND CARE PROVIDERS Images from the original note were not included. [facility] CONSULT Note Jessy Mckeon AGE: 59 y.o. GENDER: female : 1965 Subjective: HISTORY of PRESENT ILLNESS HPI Jessy Mckeon is a 59 y.o. female who presents for a wound consult. HPI: 59 y.o. female who presents to the emergency department for knee pain after a fall. Patient lives in an assisted living facility and has had multiple falls over the last week. EMS states that they have been with her 9 times in the last week just for multiple falls. She states today she slid out of her chair and hurt her left knee. She ambulates with a rollator at baseline. Denies any head injury. Wound Care consulted for sacral wound. PAST MEDICAL HISTORY Medical History[1] PAST SURGICAL HISTORY Surgical History[2] FAMILY HISTORY Family History[3] SOCIAL HISTORY Social History[4] ALLERGIES Allergies[5] MEDICATIONS Medications Ordered Prior to Encounter[6] REVIEW OF SYSTEMS Pertinent items are noted in HPI. Objective: BP 149/83 Pulse 76 Temp 36.5 C (97.7 F) (Temporal) Resp 18 Ht 5' 2.99" (1.6 m) Wt 296 lb 12.8 oz (135 kg) SpO2 95% BMI 52.59 kg/m PHYSICAL EXAM General appearance: in no apparent distress, in no respiratory distress and acyanotic, alert, and cooperative Skin: warm and dry Pulmonary: Normal effort, no respiratory distress, no cyanosis Abdomen: soft, nontender, and nondistended Extremities: warm and dry Sacrum - all tissue intact, blanchable, pink, fragile, peeling Left post thigh - 3.0 x 3.0 x 0.1cm - cluster of 4 wounds with full thickness tissue loss into subcutaneous tissue, kayley wound tissue intact 01/02/25 LABS CBC: Lab Results Component Value Date WBC 7.5 01/02/2025 HGB 7.1 (L) 01/02/2025 HGB 12/30/2024 Comment: Unable to perform hemoglobin due to microsample. HCT 21.9 (L) 01/02/2025 MCV 96.1 01/02/2025 PLT 303 01/02/2025 BMP: Lab Results Component Value Date NA 132 (L) 01/02/2025 K 4.2 01/02/2025 CL 102 01/02/2025 CO2 21 (L) 01/02/2025 BUN 14 01/02/2025 CREATININE 2.30 (H) 01/02/2025 PT/INR: No results found for: "PROTIME", "INR" Prealbumin: No results found for: PREALBUMIN Albumin:No components found for: LABALBU Sed Rate:No results found for: SEDRATE Micro: No components found for: BC Assessment/Plan: Nursing staff to perform dressing change: Sacral MASD d/t friction/fluids: Left post thigh stage 3 pressure injury (POA): -cleanse with soap and water, apply ET mix TID and PRN, leave GRAIN HANDLER -waffle chair cushion if up in chair -Q2hr/PRN turns -glide sheets for T&R -continence checks Q1-2 Hrs/PRN Nutritional support Wound Care to follow Recommend to follow up at [facility] Outpatient wound care center after hospital discharge. Any questions or concerns please secure chat "ACH wound/ostomy". Thank you for the consult! I personally obtained the pal and critical portions of the history and physical exam. I reviewed the labs, imaging studies, and electronic medical record. I reviewed the chart documentation and discussed the patient with treatment team members. I have edited the note to reflect my clinical findings and my assessment and plan. Please note, the time of this note does not reflect the time I saw this patient today, but the time of this documentaton. Portions of this note including HPI, ROS, impression/plan, and examination may have been copied forward from admission to today as to provide important historical information essential in contributing to medical decision making. Documentation has been reviewed and edited as necessary to support clinical decision making for today's visit and to reflect my own independent evaluation of this patient. Decision making for today's visit and to reflect my own independent evaluation of this patient. [1] Past Medical History: Diagnosis Date Acid reflux Anxiety Arthritis Asperger syndrome Bipolar disorder (HCC) Chronic kidney disease stage 4 kidney failure Chronic pain Depression Edema of both legs GERD (gastroesophageal reflux disease) Hemorrhoids Hyperlipidemia Hypertension Hypothyroidism Iron (Fe) deficiency anemia Nephrogenic diabetes insipidus (HCC) Pain management Retention of urine, unspecified Sciatica SOB (shortness of breath) GRANT Type II or unspecified type diabetes mellitus without mention of complication, not stated as uncontrolled (HCC) Urinary incontinence nightly [2] Past Surgical History: Procedure Laterality Date 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 CHOLECYSTECTOMY COLON SURGERY c-diff COLONOSCOPY 03/28/2018 no polyps UPPER GASTROINTESTINAL ENDOSCOPY 03/28/2018 [3] Family History Problem Relation Name Age of Onset Hypertension Mother Cancer Father Colon cancer Maternal Grandmother Cancer Brother [4] Social History Tobacco Use Smoking status: Former Smokeless tobacco: Never Vaping Use Vaping status: Never Used Substance Use Topics Alcohol use: No Alcohol/week: 0.0 standard drinks of alcohol Drug use: No [5] Allergies Allergen Reactions Antihistamines, Chlorpheniramine-Type Benztropine Disorientation and loss of muscle control Diphenhydramine Disorientation Nsaids CKD Stage 3 Other Anticholinergics: cause disorientation and loss of muscle control Venlafaxine Hives [6] No current facility-administered medications on file prior to encounter. Current Outpatient Medications on File Prior to Encounter Medication Sig Dispense Refill acetaminophen (Tylenol) 325 MG tablet Take by mouth. amoxicillin (Amoxil) 500 MG capsule Take 2 capsules (1,000 mg) by mouth every 12 hours for 10 days. 40 capsule 0 bisacodyl (Dulcolax) 10 MG suppository Insert into the rectum. divalproex (Depakote ER) 250 MG 24 hr tablet Take 1 tablet (250 mg) by mouth in the morning and 1 tablet (250 mg) at noon and 1 tablet (250 mg) in the evening. Take with meals. 90 tablet 2 DULoxetine (Cymbalta) [address] capsule Take 1 capsule (60 mg) by mouth daily. Do not crush or chew. 30 capsule 3 lamoTRIgine (LaMICtal) 150 MG tablet Take 1 tablet (150 mg) by mouth Nightly. 30 tablet 2 metoprolol tartrate (Lopressor) 100 MG tablet Take 1 tablet (100 mg) by mouth 2 times daily. 60 tablet 3 omeprazole (PriLOSEC) [address] capsule Take 1 capsule (40 mg) by mouth every morning (before breakfast). Do not crush or chew. 90 capsule 1 risperiDONE (RisperDAL) 3 MG tablet Take 1 tablet (3 mg) by mouth Nightly. 30 tablet 3 rosuvastatin (Crestor) 10 MG tablet TAKE 1 TABLET BY MOUTH DAILY 90 tablet 1 traZODone (Desyrel) 100 MG tablet Take 2 tablets (200 mg) by mouth Nightly. 60 tablet 3 buprenorphine (Butrans) 20 MCG/HR Place 1 patch on the skin. (Patient not taking: Reported on 12/30/2024) clonazePAM (KlonoPIN) 0.5 MG tablet Take 1 tablet (0.5 mg) by mouth 2 times daily as needed for anxiety. 60 tablet 1 epoetin molly-epbx (Retacrit) 88636 UNIT/ML injection Inject 10,000 Units under the skin. ergocalciferol (Vitamin D-2) 1.25 MG (09144 UT) capsule Take 1.25 mg by mouth 1 (one) time per week. furosemide (Lasix) 40 MG tablet Take 1 tablet (40 mg) by mouth daily. 30 tablet 1 hydrALAZINE (Apresoline) 25 MG tablet Take 1 tablet (25 mg) by mouth 3 times daily. 90 tablet 1 levothyroxine (Synthroid, Levoxyl) 125 MCG tablet Take 1 tablet (125 mcg) by mouth daily. Do not start before August 06, 2024. (Patient not taking: Reported on 12/30/2024) MELATONIN PO Take by mouth. nystatin (Mycostatin) 391037 UNIT/GM powder Apply topically 2 times daily. Apply to groin 60 g 0 polyethylene glycol, PEG, 3350 (Miralax) 17 g packet Take by mouth. Polysaccharide Iron Complex (IFEREX 150 PO) Take by mouth. Daily [id number] Cosigned by Los Wilks DO at 01/14/2025 4:59 PM EDT documented in this encounter [facility] 01-02-2025 Nurse Note Pt pulled out iv, stated she didn't want it any more, secure chatted automation/controls manager [id number] Dr. Sullivan responded okay to leave out and check with day team [facility] 01-01-2025 Plan of care note Problem: Knowledge Deficit Goal: Patient/family/caregiver demonstrates understanding of disease process, treatment plan, medications, and discharge instructions Outcome: Progressing Problem: Potential for Compromised Skin Integrity Goal: Skin Integrity is Maintained or Improved Outcome: Progressing Goal: Nutritional status is improving Outcome: Progressing Problem: Urinary Incontinence Goal: Perineal skin integrity is maintained or improved Outcome: Progressing Problem: Pain - Adult Goal: Verbalizes/displays adequate comfort level or baseline comfort level Outcome: Progressing Problem: Safety - Adult Goal: Free from fall injury Outcome: Progressing Problem: Discharge Planning Goal: Discharge to home or other facility with appropriate resources Outcome: Progressing Problem: Discharge Planning Goal: Discharge to home or other facility with appropriate resources Outcome: Progressing [facility] 01-01-2025 Note Formatting of this n ote might be different from the original. SW update: Received response back from [facility], they are able to accept pt. [facility] is FOC. SW met with pt, introduced self/role. Updated pt SNF is able to accept pt. Pt agreeable to discharge plan. . [facility] 01-01-2025 Note Formatting of this n ote might be different from the original. SW update: Received response back from [facility], they are able to accept pt. [facility] is FOC. SW met with pt, introduced self/role. Updated pt SNF is able to accept pt. Pt agreeable to discharge plan. . [facility] 01-01-2025 Nurse Note Patient did not allow RN to turn her to look at her wounds during morning assessment. Sacral and L posterior wounds documented initially by ED nurse. Wound care consult placed. [facility] 01-01-2025 Note Formatting of this n ote might be different from the original. ANTON follow up: PT/OT saw pt this am. Both recomm SNF at discharge. SW e-mailed the PT/OT notes to the MELODY at [place]. TCC met with pt, pt agreeable to SNF. Pt gave [facility] as FOC. SW placed careport referral to [facility]. Awaiting response. . [facility] 01-01-2025 Note Formatting of this n ote might be different from the original. ANTON follow up: PT/OT saw pt this am. Both recomm SNF at discharge. ANTON e-mailed the PT/OT notes to the DON at [place]. TCC met with pt, pt agreeable to SNF. Pt gave [facility] as FOC. ANTON placed careport referral to [facility]. Awaiting response. . [facility] 01-01-2025 Telephone encounter Note Name of caller: Pat Contact phone number: [phone] Provider: MD Stan Practice: [facility] Chief Complaint/Reason for Call: Pat called to inform provider, the assisted living facility is suggesting patient go into a custodial facility upon dc from hospital. [facility] 01-01-2025 Miscellaneous Notes Name of caller: Pat Contact phone number: [phone] Provider: MD Stan Practice: [facility] Chief Complaint/Reason for Call: Pat called to inform provider, the assisted living facility is suggesting patient go into a custodial facility upon dc from hospital. Pat notified of verbal order Ok for verbal order social science manager Name of caller: Pat Contact phone number: [phone] Relationship to Patient: patient Provider: Dr Pierce Practice: obgyn Chief Complaint/Reason for Call: Pat is calling with a patient update. She has been in the ER twice this week. First for UTI, second time multiple falls with fractured left wrist. This week she has declined in wanting to do things, urinating in her chair, refusing to walk in her rollater, refusing to stand for the nurse to take care of her buttox wounds. They are afraid she will end up flipping wheel chair when attempting to go in it. Pat is asking for a social science manager referral to discuss nursing facillity. Best time of day caller can be reached: AM Patient advised that office/PCP has 24-48 business hours to return their call: Yes documented in this encounter [facility] 12-31-2024 Plan of care note Problem: Knowledge Deficit Goal: Patient/family/caregiver demonstrates understanding of disease process, treatment plan, medications, and discharge instructions Outcome: Progressing Problem: Potential for Compromised Skin Integrity Goal: Skin Integrity is Maintained or Improved Outcome: Progressing Goal: Nutritional status is improving Outcome: Progressing Problem: Urinary Incontinence Goal: Perineal skin integrity is maintained or improved Outcome: Progressing Problem: Pain - Adult Goal: Verbalizes/displays adequate comfort level or baseline comfort level Outcome: Progressing Problem: Safety - Adult Goal: Free from fall injury Outcome: Progressing Problem: Discharge Planning Goal: Discharge to home or other facility with appropriate resources Outcome: Progressing Problem: Chronic Conditions and Co-morbidities Goal: Patient's chronic conditions and co-morbidity symptoms are monitored and maintained or improved Outcome: Progressing Problem: Inadequate Airway Clearance Goal: Patient will maintain patent airway Outcome: Progressing Goal: Patient will achieve/maintain normal respiratory rate/effort Outcome: Progressing Problem: Inadequate Breathing Pattern Goal: Patient will maintain effective ventilation Outcome: Progressing Problem: Anxiety Goal: Anxiety is at manageable level Outcome: Progressing Problem: Activity Intolerance/Impaired Mobility Goal: Mobility/activity is maintained at optimum level for patient Outcome: Progressing Problem: Inadequate Coping Goal: Demonstrates ability to cope effectively Outcome: Progressing Goal: Verbalizes adaptive coping mechanisms Outcome: Progressing Goal: Verbalizes personal strengths Outcome: Progressing Problem: Discharge Barriers Goal: My discharge needs are met Outcome: Progressing Problem: Problem Interventions Goal: Assess Nutritional Intake Outcome: Progressing [facility] 12-31-2024 Note Formatting of this n ote might be different from the original. Pt discussed in rounds. Pt familiar to ANTON from previous admission. Pt is from [facility] in [place]. SW attempted to call [facility] . DON unavailable. SW left message with assembling machine operator, asking DON to call SW back. . follow up: SW received return call from MELODY Stewart at the AL. Al indicated pt had multiple falls this weekend, which is not typical for pt. Pt has had some falls in the past but not multiple over a short time frame. [place] but due to decline, is now in [place]. AL assists with meds. MELODY is suggesting pt received SNF services at discharge. SW discussed PT/OT has not seen pt yet. SW to e-mail the PT/OT notes to MELODY at [email or web address], once we have notes. SW following. . [facility] 12-31-2024 Note Formatting of this n ote might be different from the original. Pt discussed in rounds. Pt familiar to ANTON from previous admission. Pt is from [facility] in [place]. SW attempted to call [facility] . DON unavailable. ANTON left message with assembling machine operator, asking DON to call SW back. . N follow up: SW received return call from MELODY Stewart at the AL. Al indicated pt had multiple falls this weekend, which is not typical for pt. Pt has had some falls in the past but not multiple over a short time frame. [place] but due to decline, is now in [place]. AL assists with meds. MELODY is suggesting pt received SNF services at discharge. SW discussed PT/OT has not seen pt yet. ANTON to e-mail the PT/OT notes to MELODY at [email or web address], once we have notes. ANTON following. . [facility] 12-31-2024 Note Problem: Knowledge D eficit Goal: Patient/family/caregiver demonstrates understanding of disease process, treatment plan, medications, and discharge instructions Outcome: Progressing [facility] 12-31-2024 Plan of care note Problem: Knowledge Deficit Goal: Patient/family/caregiver demonstrates understanding of disease process, treatment plan, medications, and discharge instructions Outcome: Progressing [facility] 12-30-2024 Emergency department Note Meal tray delivered at this time [facility] 12-30-2024 Emergency department Note Meal tray delivered at this time Pt refused ABG from RT at this time. Shakir BLANCHARD notified. Trauma float and resident unavailable for US IV placement. Per charge master analyst, ok to send to floor if no IV placement ordered. Two RN's attempted to get IV access with no success. Pt will need US IV. Blood work obtained. 1L of urine emptied from pt canister with purewick at this time. Pt only urinated into bedpan. Pt did not have a BM EMERGENCY DEPARTMENT ENCOUNTER Pt Name: Jessy Mckeon Birthdate 1965 Date of evaluation: 12/30/2024 ED Provider: Pati Duenas MD CHIEF COMPLAINT Chief Complaint Patient presents with Fall Pt comes from assisted living for multiple falls. Per EMS, squad has been out about 9 times to assist pt. She has been getting weaker, recently broke left arm in fall, unable to thrive at home. A&Ox4. Denies hitting head, reports dizziness from pain medication. Uses rolator at home. HISTORY OF PRESENT ILLNESS (Location/Symptom, Timing/Onset, Context/Setting, Quality, Duration, Modifying Factors, Severity) Note limiting factors. HPI Jessy Mckeon is a 59 y.o. female who presents to the emergency department for knee pain after a fall. Patient lives in an assisted living facility and has had multiple falls over the last week. EMS states that they have been with her 9 times in the last week just for multiple falls. She states today she slid out of her chair and hurt her left knee. She ambulates with a rollator at baseline. Denies any head injury. No loss of consciousness. No numbness or tingling. Nursing Notes were reviewed. REVIEW OF SYSTEMS Review of Systems Pertinent positives and negatives per HPI PAST MEDICAL HISTORY Medical History[1] SURGICAL HISTORY Surgical History[2] CURRENT MEDICATIONS Previous Medications ACETAMINOPHEN (TYLENOL) 325 MG TABLET Take by mouth. AMOXICILLIN (AMOXIL) 500 MG CAPSULE Take 2 capsules (1,000 mg) by mouth every 12 hours for 10 days. BISACODYL (DULCOLAX) 10 MG SUPPOSITORY Insert into the rectum. BUPRENORPHINE (BUTRANS) 20 MCG/HR Place 1 patch on the skin. CLONAZEPAM (KLONOPIN) 0.5 MG TABLET Take 1 tablet (0.5 mg) by mouth 2 times daily as needed for anxiety. DIVALPROEX (DEPAKOTE ER) 250 MG 24 HR TABLET Take 1 tablet (250 mg) by mouth in the morning and 1 tablet (250 mg) at noon and 1 tablet (250 mg) in the evening. Take with meals. DULOXETINE (CYMBALTA) [address] CAPSULE Take 1 capsule (60 mg) by mouth daily. Do not crush or chew. EPOETIN MOLLY-EPBX (RETACRIT) 27662 UNIT/ML INJECTION Inject 10,000 Units under the skin. ERGOCALCIFEROL (VITAMIN D-2) 1.25 MG (12718 UT) CAPSULE Take 1.25 mg by mouth 1 (one) time per week. FUROSEMIDE (LASIX) 40 MG TABLET Take 1 tablet (40 mg) by mouth daily. HYDRALAZINE (APRESOLINE) 25 MG TABLET Take 1 tablet (25 mg) by mouth 3 times daily. LAMOTRIGINE (LAMICTAL) 150 MG TABLET Take 1 tablet (150 mg) by mouth Nightly. LEVOTHYROXINE (SYNTHROID, LEVOXYL) 125 MCG TABLET Take 1 tablet (125 mcg) by mouth daily. Do not start before August 06, 2024. MELATONIN PO Take by mouth. METOPROLOL TARTRATE (LOPRESSOR) 100 MG TABLET Take 1 tablet (100 mg) by mouth 2 times daily. NYSTATIN (MYCOSTATIN) 620220 UNIT/GM POWDER Apply topically 2 times daily. Apply to groin OMEPRAZOLE (PRILOSEC) [address] CAPSULE Take 1 capsule (40 mg) by mouth every morning (before breakfast). Do not crush or chew. POLYETHYLENE GLYCOL, PEG, 3350 (MIRALAX) 17 G PACKET Take by mouth. POLYSACCHARIDE IRON COMPLEX (IFEREX 150 PO) Take by mouth. Daily [facility] RISPERIDONE (RISPERDAL) 3 MG TABLET Take 1 tablet (3 mg) by mouth Nightly. ROSUVASTATIN (CRESTOR) 10 MG TABLET TAKE 1 TABLET BY MOUTH DAILY TRAZODONE (DESYREL) 100 MG TABLET Take 2 tablets (200 mg) by mouth Nightly. ALLERGIES Antihistamines, chlorpheniramine-type; Benztropine; Diphenhydramine; Nsaids; Other; and Venlafaxine FAMILY HISTORY Family History[3] SOCIAL HISTORY Social History[4] SCREENINGS PHYSICAL EXAM ED Triage Vitals Temp Heart Rate Resp BP 12/30/24 1110 12/30/24 1110 12/30/24 11112/30/24 1110 36.9 C (98.4 F) 65 20 123/63 SpO2 Temp Source Heart Rate Source Patient Position 12/30/24 11112/30/24 11112/30/24 1110 12/30/24 1330 95 % Oral Monitor Lying BP Location FiO2 (%) 12/30/24 1110 -- Right arm Physical Exam Morbidly obese female who is chronically ill-appearing in no acute distress. Vital signs reviewed and unremarkable. Head is normocephalic and atraumatic. Patient has a splint to the left upper extremity with bruising that appears to be old. She has tenderness to palpation of the anterior aspect of the knee with no obvious deformity. There is no overlying erythema no warmth no edema. She has some pain with range of motion and decreased range of motion of the left knee which she states is chronic. 2+ DP pulses bilaterally. Compartment soft and compressible. Normal sensation. DIAGNOSTIC RESULTS RADIOLOGY (Per Emergency Physician): Interpretation per the Radiologist below, if available at the time of this note: XR knee 4+ views left Final Result Severe tricompartmental osteoarthritis of the knee. Report Dictated on Electronically Signed By: Harvey Rayo MD Electronically Signed Date/Time: 12/30/2024 12:[address] head wo IV contrast (Results Pending) LABS: Labs Reviewed CBC WITH AUTO DIFFERENTIAL - Abnormal Result Value Auto WBC 7.9 RBC 2.49 (*) Hemoglobin 7.7 (*) Hematocrit 24.4 (*) MCV 98.0 MCH 30.9 MCHC 31.6 RDW 14.1 Platelets 268 MPV 8.6 (*) nRBC 0.0 Neutrophils Relative 61.2 Lymphocytes Relative 22.4 Monocytes Relative 10.9 Eosinophils Relative 2.5 Basophils Relative 0.6 Immature Grans % 2.4 (*) Neutrophils Absolute 4.8 Lymphocytes Absolute 1.8 Monocytes Absolute 0.9 Eosinophils Absolute 0.2 Basophils Absolute 0.1 Immature Grans Absolute 0.2 (*) COMPLETE URINALYSIS WITH REFLEX TO CULTURE - Abnormal Color, Urine Colorless Clarity, Urine Clear pH, Urine 7.0 Leukocytes, Urine Negative Nitrite, Urine Negative Protein, Urine 20 (*) Glucose, Urine Normal Bilirubin, Urine Negative Ketones, Urine Negative Urobilinogen, Urine Normal Blood, Urine Negative RBC, Urine 0-2 WBC, Urine 0-2 Squamous Epithelial, Urine 0-2 Bacteria, Urine Few (*) Hyaline Casts, Urine Negative SPECIFIC GRAVITY OF URINE (NUMERIC) 1.005 Narrative: A specimen with <=10 WBC is not consistent with inflammation. This specimen will not reflex to a urine culture. VALPROIC ACID TOTAL LAMOTRIGINE LEVEL (BKR QUEST) THYROID STIMULATING HORMONE VITAMIN D DEFICIENCY SCREENING (VIT D 25) BLOOD GAS ARTERIAL COMPREHENSIVE METABOLIC PANEL WITH MG REFLEX Narrative: The following orders were created for panel order Comprehensive Metabolic Panel w/ Mg Reflex. Procedure Abnormality Status --------- ------ Comprehensive metabolic ...[[id number]] In process Please view results for these tests on the individual orders. COMPREHENSIVE METABOLIC PANEL All other labs were within normal range or not returned as of this dictation. EMERGENCY DEPARTMENT COURSE and DIFFERENTIAL DIAGNOSIS/MDM: Vitals: Vitals: 12/30/24 1110 12/30/24 1330 12/30/24 1745 BP: 123/63 123/57 (!) 130/105 BP Location: Right arm Right arm Right arm Patient Position: Lying Sitting Pulse: 65 70 67 Resp: 20 18 12 Temp: 36.9 C (98.4 F) TempSrc: Oral SpO2: 95% 94% 99% Weight: 113 kg (250 lb) Height: 1.6 m (5' 3") Medications clonazePAM (KlonoPIN) tablet 0.5 mg (has no administration in time range) divalproex (Depakote ER) 24 hr tablet 250 mg (has no administration in time range) lamoTRIgine (LaMICtal) tablet 150 mg (has no administration in time range) levothyroxine (Synthroid, Levoxyl) tablet 125 mcg (has no administration in time range) pantoprazole (ProtoNix) EC tablet 40 mg (has no administration in time range) rosuvastatin (Crestor) tablet 10 mg (has no administration in time range) sodium chloride 0.9% (NS) flush 5-40 mL (has no administration in time range) sodium chloride 0.9% (NS) flush 5-40 mL (has no administration in time range) sodium chloride 0.9 % infusion (has no administration in time range) acetaminophen (Tylenol) tablet 650 mg (has no administration in time range) Or acetaminophen (Tylenol) suppository 650 mg (has no administration in time range) ondansetron ODT (Zofran-ODT) disintegrating tablet 4 mg (has no administration in time range) Or ondansetron (Zofran) injection 4 mg (has no administration in time range) polyethylene glycol (PEG) 3350 (Miralax) packet 17 g (has no administration in time range) acetaminophen (Tylenol) tablet 1,000 mg (1,000 mg Oral Given 12/30/24 1201) Medical Decision Making Problems Addressed: Acute pain of left knee: complicated acute illness or injury Fall, initial encounter: complicated acute illness or injury Amount and/or Complexity of Data Reviewed Radiology: ordered. Risk OTC drugs. Decision regarding hospitalization. 59-year-old female present emergency department today for a fall. She is afebrile hemodynamically stable. She is been in emergency department 5 times in the last week for multiple falls. She has a splint to the left upper extremity from an old injury. She is complaining of left knee pain. Looking back it looks like every single time she has had left knee pain as well. Patient was given Tylenol I did an x-ray which was unremarkable. I have low suspicion for septic joint as there is no significant erythema, warmth, edema. I think this is most likely musculoskeletal pain. Patient did not feel comfortable going back to assisted living because she will have any help. I spoke with social science manager tried to get home health care involved but unfortunately they are not able to get her any help in the next few days. Her assisted living center does not have an escalation to custodial facility so she will be admitted for PT OT evaluation and placement. Diagnostic tests considered but not performed: External records reviewed: Diagnostics interpreted by me: Discussions with other clinicians: Chronic conditions impacting care: Social determinants of health affecting care: ED Medications managed: Medications clonazePAM (KlonoPIN) tablet 0.5 mg (has no administration in time range) divalproex (Depakote ER) 24 hr tablet 250 mg (has no administration in time range) lamoTRIgine (LaMICtal) tablet 150 mg (has no administration in time range) levothyroxine (Synthroid, Levoxyl) tablet 125 mcg (has no administration in time range) pantoprazole (ProtoNix) EC tablet 40 mg (has no administration in time range) rosuvastatin (Crestor) tablet 10 mg (has no administration in time range) sodium chloride 0.9% (NS) flush 5-40 mL (has no administration in time range) sodium chloride 0.9% (NS) flush 5-40 mL (has no administration in time range) sodium chloride 0.9 % infusion (has no administration in time range) acetaminophen (Tylenol) tablet 650 mg (has no administration in time range) Or acetaminophen (Tylenol) suppository 650 mg (has no administration in time range) ondansetron ODT (Zofran-ODT) disintegrating tablet 4 mg (has no administration in time range) Or ondansetron (Zofran) injection 4 mg (has no administration in time range) polyethylene glycol (PEG) 3350 (Miralax) packet 17 g (has no administration in time range) acetaminophen (Tylenol) tablet 1,000 mg (1,000 mg Oral Given 12/30/24 1201) Prescription drugs considered: Fernando Duenas MD am the sample examiner of record. FINAL IMPRESSION 1. Fall, initial encounter 2. Acute pain of left knee DISPOSITION Admit 12/30/2024 04:23:50 PM PATIENT REFERRED TO: Edith Pierce MD [address] [place] [address] [address] [facility] [id number] DISCHARGE MEDICATIONS: New Prescriptions No medications on file (Comment: Please note this report has been produced using speech recognition software and may contain errors related to that system including errors in grammar, punctuation, and spelling, as well as words and phrases that may be inappropriate. If there are any questions or concerns please feel free to contact the dictating provider for clarification.) Pati Duenas MD (electronically signed) Emergency Medicine Provider' [1] Past Medical History: Diagnosis Date Acid reflux Anxiety Arthritis Asperger syndrome Bipolar disorder (HCC) Chronic kidney disease stage 4 kidney failure Chronic pain Depression Edema of both legs GERD (gastroesophageal reflux disease) Hemorrhoids Hyperlipidemia Hypertension Hypothyroidism Iron (Fe) deficiency anemia Nephrogenic diabetes insipidus (HCC) Pain management Retention of urine, unspecified Sciatica SOB (shortness of breath) GRANT Type II or unspecified type diabetes mellitus without mention of complication, not stated as uncontrolled (HCC) Urinary incontinence nightly [2] Past Surgical History: Procedure Laterality Date 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 CHOLECYSTECTOMY COLON SURGERY c-diff COLONOSCOPY 03/28/2018 no polyps UPPER GASTROINTESTINAL ENDOSCOPY 03/28/2018 [3] Family History Problem Relation Name Age of Onset Hypertension Mother Cancer Father Colon cancer Maternal Grandmother Cancer Brother [4] Social History Socioeconomic History Marital status: Single Tobacco Use Smoking status: Former Smokeless tobacco: Never Vaping Use Vaping status: Never Used Substance and Sexual Activity Alcohol use: No Alcohol/week: 0.0 standard drinks of alcohol Drug use: No Social Drivers of Health Financial Resource Strain: Low Risk (10/03/2024) Overall Financial Resource Strain (CARDIA) Difficulty of Paying Living Expenses: Not hard at all Food Insecurity: No Food Insecurity (10/03/2024) Hunger Vital Sign Worried About Running Out of Food in the Last Year: Never true Ran Out of Food in the Last Year: Never true Transportation Needs: No Transportation Needs (10/03/2024) PRAPARE - Transportation Lack of Transportation (Medical): No Lack of Transportation (Non-Medical): No Physical Activity: Inactive (10/03/2024) Exercise Vital Sign Days of Exercise per Week: 0 days Minutes of Exercise per Session: 0 min Stress: No Stress Concern Present (10/03/2024) [employer] - Occupational Stress Questionnaire Feeling of Stress : Not at all Social Connections: Moderately Isolated (10/03/2024) Social Connection and Isolation Panel [NHANES] Frequency of Communication with Friends and Family: Three times a week Frequency of Social Gatherings with Friends and Family: Once a week Attends [employer] Services: 1 to 4 times per year Active Member of Clubs or Organizations: No Attends Club or Organization Meetings: Never Marital Status: Never Intimate Partner Violence: Not At Risk (10/03/2024) Humiliation, Afraid, Rape, and Kick questionnaire Fear of Current or Ex-Partner: No Emotionally Abused: No Physically Abused: No Sexually Abused: No Housing Stability: Low Risk (10/03/2024) Housing Stability Vital Sign Unable to Pay for Housing in the Last Year: No Number of Times Moved in the Last Year: 0 Homeless in the Last Year: No Pati Duenas MD 12/30/24 184 documented in this encounter [facility] 12-30-2024 Emergency department Note Pt refused ABG from RT at this time. Shakir BLANCHARD notified. Trauma float and resident unavailable for US IV placement. Per charge master analyst, ok to send to floor if no IV placement ordered. [facility] 12-30-2024 Emergency department Note Two RN's attempted to get IV access with no success. Pt will need US IV. Blood work obtained. [facility] 12-30-2024 History and physical note Attending History and Physical Admit Date: 12/30/2024 PCP: Edith Pierce MD CHIEF COMPLAINT: Recurrent falls History Obtained From: patient and ER physician HISTORY OF PRESENT ILLNESS: Jessy is a 59 y.o. female with past medical history below who presents with chief complaint listed above. Pt was brought in from [place] AFTER recurrent falls, pt is sleepy in ER but wakes up to verbal stimuli, answers questions and then goes to sleep. Reports pain in her suprapubic area, decreased strength and uses a rollator at baseline to move around, for the past few days had 5-6 falls where she slid down from her chair, unsure if she hit her head, reports pain in her LLE. Denies chest pain, sob, abdominal pain, nausea, vomiting, diarrhea, constipation, fevers, or chills. Will admit for further evaluation and management. Past Medical History: Medical History[1] Past Surgical History: Surgical History[2] Social History: Social History Socioeconomic History Marital status: Single Spouse name: Not on file Number of children: Not on file Years of education: Not on file Highest education level: Not on file Occupational History Not on file Tobacco Use Smoking status: Former Smokeless tobacco: Never Vaping Use Vaping status: Never Used Substance and Sexual Activity Alcohol use: No Alcohol/week: 0.0 standard drinks of alcohol Drug use: No Sexual activity: Not on file Other Topics Concern Not on file Social History Narrative Not on file Social Drivers of Health Financial Resource Strain: Low Risk (10/03/2024) Overall Financial Resource Strain (CARDIA) Difficulty of Paying Living Expenses: Not hard at all Food Insecurity: No Food Insecurity (10/03/2024) Hunger Vital Sign Worried About Running Out of Food in the Last Year: Never true Ran Out of Food in the Last Year: Never true Transportation Needs: No Transportation Needs (10/03/2024) PRAPARE - Transportation Lack of Transportation (Medical): No Lack of Transportation (Non-Medical): No Physical Activity: Inactive (10/03/2024) Exercise Vital Sign Days of Exercise per Week: 0 days Minutes of Exercise per Session: 0 min Stress: No Stress Concern Present (10/03/2024) [employer] - Occupational Stress Questionnaire Feeling of Stress : Not at all Social Connections: Moderately Isolated (10/03/2024) Social Connection and Isolation Panel [NHANES] Frequency of Communication with Friends and Family: Three times a week Frequency of Social Gatherings with Friends and Family: Once a week Attends Cheondoism Services: 1 to 4 times per year Active Member of Clubs or Organizations: No Attends Club or Organization Meetings: Never Marital Status: Never Intimate Partner Violence: Not At Risk (10/03/2024) Humiliation, Afraid, Rape, and Kick questionnaire Fear of Current or Ex-Partner: No Emotionally Abused: No Physically Abused: No Sexually Abused: No Housing Stability: Low Risk (10/03/2024) Housing Stability Vital Sign Unable to Pay for Housing in the Last Year: No Number of Times Moved in the Last Year: 0 Homeless in the Last Year: No Family History: Family History[3] Medications Prior to Admission: Prescriptions Prior to Admission[4] Allergies: Allergies[5] REVIEW OF SYSTEMS: 10 point review of systems done and all are neg except above Vitals: BP 123/57 (BP Location: Right arm, Patient Position: Lying) Pulse 70 Temp 36.9 C (98.4 F) (Oral) Resp 18 Ht 5' 3" (1.6 m) Wt 250 lb (113 kg) SpO2 94% BMI 44.29 kg/m BMI Classification: Pulse Ox: SpO2 Av.3 % Min: 94 % Max: 100 % Supplemental O2: PHYSICAL EXAM: General appearance: No apparent distress, appears stated age and cooperative with exam. Respiratory: Normal respiratory effort. Clear to auscultation, bilaterally without Rales/Wheezes/Rhonchi. Cardiovascular: Regular rate and rhythm with normal S1/S2 without murmurs, rubs or gallops. Abdomen: Soft, non-tender, non-distended with normal bowel sounds. No rebound or guarding. Musculoskeletal: No clubbing, cyanosis or edema bilaterally. LLE range of movements decreased due to pain Skin: Skin color, texture, turgor normal. No rashes or lesions. DATA: CBC: No results for input(s): "WBC", "RBC", "HGB", "HCT", "MCV", "RDW", "PLT" in the last 72 hours. BMP:No results for input(s): "NA", "K", "CL", "CO2", "BUN", "CREATININE", "GLUCOSE", "CALCIUM", "ANIONGAP" in the last 72 hours. LIVER PROFILE:No results for input(s): "AST", "ALT", "BILITOT", "ALKPHOS", "PROT" in the last 72 hours. No lab exists for component: LABALBU PT/INR: No results for input(s): "PROTIME", "INR" in the last 72 hours. CARDIAC ENZYMES: No results for input(s): "TROPONINI" in the last 72 hours. Procalcitonin: No results found for: "PROCAL" Urine Culture: Results for orders placed or performed during the hospital encounter of 12/25/24 Urine culture Collection Time: 12/25/24 12:34 PM Specimen: Urine, Clean Catch Result Value Ref Range Urine Culture Normal urogenital karan present COVID-19 PCR: No results for input(s): "COVID19" in the last 72 hours. I reviewed: [x] laboratory results [x] radiographic results At the time of today's encounter. Pt was advised of the results. IMPRESSION: Generallised debility Drowsiness L LEG pain- Knee xray shows severe OA Bipolar disorder H/o hypothyroidism PLAN: - discussed with ED physician and agree with admission - check ua, ct head, cbc and cmp, abg, tsh, vit d level - will hold off on ativan, buprenorphine, check lamotrigine levels and depakote levels -PT/OT eval/increase activity -am labs, replace lytes prn -vitals per routine -home meds as ordered -DVT prophylaxis: [] Lovenox [] Heparin [] SCDs [x] Encourage ambulation [] Already on Anticoagulation -see below for additional orders, further recommendations to follow Orders Placed This Encounter Procedures XR knee 4+ views left Adult diet Regular Admit to inpatient Code status: Prior Please forward a copy of this H&P to the patient's PCP. Thank you. Electronically signed by Lissett Gonzalez MD 12/30/2024 4:45 PM [1] Past Medical History: Diagnosis Date Acid reflux Anxiety Arthritis Asperger syndrome Bipolar disorder (HCC) Chronic kidney disease stage 4 kidney failure Chronic pain Depression Edema of both legs GERD (gastroesophageal reflux disease) Hemorrhoids Hyperlipidemia Hypertension Hypothyroidism Iron (Fe) deficiency anemia Nephrogenic diabetes insipidus (HCC) Pain management Retention of urine, unspecified Sciatica SOB (shortness of breath) GRANT Type II or unspecified type diabetes mellitus without mention of complication, not stated as uncontrolled (HCC) Urinary incontinence nightly [2] Past Surgical History: Procedure Laterality Date 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 CHOLECYSTECTOMY COLON SURGERY c-diff COLONOSCOPY 03/28/2018 no polyps UPPER GASTROINTESTINAL ENDOSCOPY 03/28/2018 [3] Family History Problem Relation Name Age of Onset Hypertension Mother Cancer Father Colon cancer Maternal Grandmother Cancer Brother [4] (Not in a hospital admission) [5] Allergies Allergen Reactions Antihistamines, Chlorpheniramine-Type Benztropine Disorientation and loss of muscle control Diphenhydramine Disorientation Nsaids CKD Stage 3 Other Anticholinergics: cause disorientation and loss of muscle control Venlafaxine Hives [employer] Phone: 12-30-2024 Note [employer] [facility] 12-30-2024 History and physical note Attending History and Physical Admit Date: 12/30/2024 PCP: Edith Pierce MD CHIEF COMPLAINT: Recurrent falls History Obtained From: patient and ER physician HISTORY OF PRESENT ILLNESS: Jessy is a 59 y.o. female with past medical history below who presents with chief complaint listed above. [place] recurrent falls, pt is sleepy in ER but wakes up to verbal stimuli, answers questions and then goes to sleep. Reports pain in her suprapubic area, decreased strength and uses a rollator at baseline to move around, for the past few days had 5-6 falls where she slid down from her chair, unsure if she hit her head, reports pain in her LLE. Denies chest pain, sob, abdominal pain, nausea, vomiting, diarrhea, constipation, fevers, or chills. Will admit for further evaluation and management. Past Medical History: Medical History[1] Past Surgical History: Surgical History[2] Social History: Social History Socioeconomic History Marital status: Single Spouse name: Not on file Number of children: Not on file Years of education: Not on file Highest education level: Not on file Occupational History Not on file Tobacco Use Smoking status: Former Smokeless tobacco: Never Vaping Use Vaping status: Never Used Substance and Sexual Activity Alcohol use: No Alcohol/week: 0.0 standard drinks of alcohol Drug use: No Sexual activity: Not on file Other Topics Concern Not on file Social History Narrative Not on file Social Drivers of Health Financial Resource Strain: Low Risk (10/03/2024) Overall Financial Resource Strain (CARDIA) Difficulty of Paying Living Expenses: Not hard at all Food Insecurity: No Food Insecurity (10/03/2024) Hunger Vital Sign Worried About Running Out of Food in the Last Year: Never true Ran Out of Food in the Last Year: Never true Transportation Needs: No Transportation Needs (10/03/2024) PRAPARE - Transportation Lack of Transportation (Medical): No Lack of Transportation (Non-Medical): No Physical Activity: Inactive (10/03/2024) Exercise Vital Sign Days of Exercise per Week: 0 days Minutes of Exercise per Session: 0 min Stress: No Stress Concern Present (10/03/2024) [employer] - Occupational Stress Questionnaire Feeling of Stress : Not at all Social Connections: Moderately Isolated (10/03/2024) Social Connection and Isolation Panel [NHANES] Frequency of Communication with Friends and Family: Three times a week Frequency of Social Gatherings with Friends and Family: Once a week Attends Cheondoism Services: 1 to 4 times per year Active Member of Clubs or Organizations: No Attends Club or Organization Meetings: Never Marital Status: Never Intimate Partner Violence: Not At Risk (10/03/2024) Humiliation, Afraid, Rape, and Kick questionnaire Fear of Current or Ex-Partner: No Emotionally Abused: No Physically Abused: No Sexually Abused: No Housing Stability: Low Risk (10/03/2024) Housing Stability Vital Sign Unable to Pay for Housing in the Last Year: No Number of Times Moved in the Last Year: 0 Homeless in the Last Year: No Family History: Family History[3] Medications Prior to Admission: Prescriptions Prior to Admission[4] Allergies: Allergies[5] REVIEW OF SYSTEMS: 10 point review of systems done and all are neg except above Vitals: BP 123/57 (BP Location: Right arm, Patient Position: Lying) Pulse 70 Temp 36.9 C (98.4 F) (Oral) Resp 18 Ht 5' 3" (1.6 m) Wt 250 lb (113 kg) SpO2 94% BMI 44.29 kg/m BMI Classification: Pulse Ox: SpO2 Av.3 % Min: 94 % Max: 100 % Supplemental O2: PHYSICAL EXAM: General appearance: No apparent distress, appears stated age and cooperative with exam. Respiratory: Normal respiratory effort. Clear to auscultation, bilaterally without Rales/Wheezes/Rhonchi. Cardiovascular: Regular rate and rhythm with normal S1/S2 without murmurs, rubs or gallops. Abdomen: Soft, non-tender, non-distended with normal bowel sounds. No rebound or guarding. Musculoskeletal: No clubbing, cyanosis or edema bilaterally. LLE range of movements decreased due to pain Skin: Skin color, texture, turgor normal. No rashes or lesions. DATA: CBC: No results for input(s): "WBC", "RBC", "HGB", "HCT", "MCV", "RDW", "PLT" in the last 72 hours. BMP:No results for input(s): "NA", "K", "CL", "CO2", "BUN", "CREATININE", "GLUCOSE", "CALCIUM", "ANIONGAP" in the last 72 hours. LIVER PROFILE:No results for input(s): "AST", "ALT", "BILITOT", "ALKPHOS", "PROT" in the last 72 hours. No lab exists for component: LABALBU PT/INR: No results for input(s): "PROTIME", "INR" in the last 72 hours. CARDIAC ENZYMES: No results for input(s): "TROPONINI" in the last 72 hours. Procalcitonin: No results found for: "PROCAL" Urine Culture: Results for orders placed or performed during the hospital encounter of 12/25/24 Urine culture Collection Time: 12/25/24 12:34 PM Specimen: Urine, Clean Catch Result Value Ref Range Urine Culture Normal urogenital karan present COVID-19 PCR: No results for input(s): "COVID19" in the last 72 hours. I reviewed: [x] laboratory results [x] radiographic results At the time of today's encounter. Pt was advised of the results. IMPRESSION: Generallised debility Drowsiness L LEG pain- Knee xray shows severe OA Bipolar disorder H/o hypothyroidism PLAN: - discussed with ED physician and agree with admission - check ua, ct head, cbc and cmp, abg, tsh, vit d level - will hold off on ativan, buprenorphine, check lamotrigine levels and depakote levels -PT/OT eval/increase activity -am labs, replace lytes prn -vitals per routine -home meds as ordered -DVT prophylaxis: [] Lovenox [] Heparin [] SCDs [x] Encourage ambulation [] Already on Anticoagulation -see below for additional orders, further recommendations to follow Orders Placed This Encounter Procedures XR knee 4+ views left Adult diet Regular Admit to inpatient Code status: Prior Please forward a copy of this H&P to the patient's PCP. Thank you. Electronically signed by Lissett Gonzalez MD 12/30/2024 4:45 PM [1] Past Medical History: Diagnosis Date Acid reflux Anxiety Arthritis Asperger syndrome Bipolar disorder (HCC) Chronic kidney disease stage 4 kidney failure Chronic pain Depression Edema of both legs GERD (gastroesophageal reflux disease) Hemorrhoids Hyperlipidemia Hypertension Hypothyroidism Iron (Fe) deficiency anemia Nephrogenic diabetes insipidus (HCC) Pain management Retention of urine, unspecified Sciatica SOB (shortness of breath) GRANT Type II or unspecified type diabetes mellitus without mention of complication, not stated as uncontrolled (HCC) Urinary incontinence nightly [2] Past Surgical History: Procedure Laterality Date 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 CHOLECYSTECTOMY COLON SURGERY c-diff COLONOSCOPY 03/28/2018 no polyps UPPER GASTROINTESTINAL ENDOSCOPY 03/28/2018 [3] Family History Problem Relation Name Age of Onset Hypertension Mother Cancer Father Colon cancer Maternal Grandmother Cancer Brother [4] (Not in a hospital admission) [5] Allergies Allergen Reactions Antihistamines, Chlorpheniramine-Type Benztropine Disorientation and loss of muscle control Diphenhydramine Disorientation Nsaids CKD Stage 3 Other Anticholinergics: cause disorientation and loss of muscle control Venlafaxine Hives documented in this encounter [facility] 12-30-2024 Emergency department Note 1L of urine emptied from pt canister with purewick at this time. [facility] 12-30-2024 Emergency department Note Pt only urinated into bedpan. Pt did not have a BM [facility] 12-30-2024 Physician Emergency department Note EMERGENCY DEPARTMENT ENCOUNTER Pt Name: Jessy Mckeon Birthdate 1965 Date of evaluation: 12/30/2024 ED Provider: Pati Duenas MD CHIEF COMPLAINT Chief Complaint Patient presents with Fall Pt comes from assisted living for multiple falls. Per EMS, squad has been out about 9 times to assist pt. She has been getting weaker, recently broke left arm in fall, unable to thrive at home. A&Ox4. Denies hitting head, reports dizziness from pain medication. Uses rolator at home. HISTORY OF PRESENT ILLNESS (Location/Symptom, Timing/Onset, Context/Setting, Quality, Duration, Modifying Factors, Severity) Note limiting factors. HPI Jessy Mckeon is a 59 y.o. female who presents to the emergency department for knee pain after a fall. Patient lives in an assisted living facility and has had multiple falls over the last week. EMS states that they have been with her 9 times in the last week just for multiple falls. She states today she slid out of her chair and hurt her left knee. She ambulates with a rollator at baseline. Denies any head injury. No loss of consciousness. No numbness or tingling. Nursing Notes were reviewed. REVIEW OF SYSTEMS Review of Systems Pertinent positives and negatives per HPI PAST MEDICAL HISTORY Medical History[1] SURGICAL HISTORY Surgical History[2] CURRENT MEDICATIONS Previous Medications ACETAMINOPHEN (TYLENOL) 325 MG TABLET Take by mouth. AMOXICILLIN (AMOXIL) 500 MG CAPSULE Take 2 capsules (1,000 mg) by mouth every 12 hours for 10 days. BISACODYL (DULCOLAX) 10 MG SUPPOSITORY Insert into the rectum. BUPRENORPHINE (BUTRANS) 20 MCG/HR Place 1 patch on the skin. CLONAZEPAM (KLONOPIN) 0.5 MG TABLET Take 1 tablet (0.5 mg) by mouth 2 times daily as needed for anxiety. DIVALPROEX (DEPAKOTE ER) 250 MG 24 HR TABLET Take 1 tablet (250 mg) by mouth in the morning and 1 tablet (250 mg) at noon and 1 tablet (250 mg) in the evening. Take with meals. DULOXETINE (CYMBALTA) [address] CAPSULE Take 1 capsule (60 mg) by mouth daily. Do not crush or chew. EPOETIN MOLLY-EPBX (RETACRIT) 51247 UNIT/ML INJECTION Inject 10,000 Units under the skin. ERGOCALCIFEROL (VITAMIN D-2) 1.25 MG (90349 UT) CAPSULE Take 1.25 mg by mouth 1 (one) time per week. FUROSEMIDE (LASIX) 40 MG TABLET Take 1 tablet (40 mg) by mouth daily. HYDRALAZINE (APRESOLINE) 25 MG TABLET Take 1 tablet (25 mg) by mouth 3 times daily. LAMOTRIGINE (LAMICTAL) 150 MG TABLET Take 1 tablet (150 mg) by mouth Nightly. LEVOTHYROXINE (SYNTHROID, LEVOXYL) 125 MCG TABLET Take 1 tablet (125 mcg) by mouth daily. Do not start before August 06, 2024. MELATONIN PO Take by mouth. METOPROLOL TARTRATE (LOPRESSOR) 100 MG TABLET Take 1 tablet (100 mg) by mouth 2 times daily. NYSTATIN (MYCOSTATIN) 760835 UNIT/GM POWDER Apply topically 2 times daily. Apply to groin OMEPRAZOLE (PRILOSEC) [address] CAPSULE Take 1 capsule (40 mg) by mouth every morning (before breakfast). Do not crush or chew. POLYETHYLENE GLYCOL, PEG, 3350 (MIRALAX) 17 G PACKET Take by mouth. POLYSACCHARIDE IRON COMPLEX (IFEREX 150 PO) Take by mouth. Daily Qej-Sym-Rlbxpl RISPERIDONE (RISPERDAL) 3 MG TABLET Take 1 tablet (3 mg) by mouth Nightly. ROSUVASTATIN (CRESTOR) 10 MG TABLET TAKE 1 TABLET BY MOUTH DAILY TRAZODONE (DESYREL) 100 MG TABLET Take 2 tablets (200 mg) by mouth Nightly. ALLERGIES Antihistamines, chlorpheniramine-type; Benztropine; Diphenhydramine; Nsaids; Other; and Venlafaxine FAMILY HISTORY Family History[3] SOCIAL HISTORY Social History[4] SCREENINGS PHYSICAL EXAM ED Triage Vitals Temp Heart Rate Resp BP 12/30/24 1110 12/30/24 1110 12/30/24 1110 12/30/24 1110 36.9 C (98.4 F) 65 20 123/63 SpO2 Temp Source Heart Rate Source Patient Position 12/30/24 1110 12/30/24 1110 12/30/24 1110 12/30/24 1330 95 % Oral Monitor Lying BP Location FiO2 (%) 12/30/24 1110 -- Right arm Physical Exam Morbidly obese female who is chronically ill-appearing in no acute distress. Vital signs reviewed and unremarkable. Head is normocephalic and atraumatic. Patient has a splint to the left upper extremity with bruising that appears to be old. She has tenderness to palpation of the anterior aspect of the knee with no obvious deformity. There is no overlying erythema no warmth no edema. She has some pain with range of motion and decreased range of motion of the left knee which she states is chronic. 2+ DP pulses bilaterally. Compartment soft and compressible. Normal sensation. DIAGNOSTIC RESULTS RADIOLOGY (Per Emergency Physician): Interpretation per the Radiologist below, if available at the time of this note: XR knee 4+ views left Final Result Severe tricompartmental osteoarthritis of the knee. Report Dictated on Electronically Signed By: Harvey Rayo MD Electronically Signed Date/Time: 12/30/2024 12:[address] head wo IV contrast (Results Pending) LABS: Labs Reviewed CBC WITH AUTO DIFFERENTIAL - Abnormal Result Value Auto WBC 7.9 RBC 2.49 (*) Hemoglobin 7.7 (*) Hematocrit 24.4 (*) MCV 98.0 MCH 30.9 MCHC 31.6 RDW 14.1 Platelets 268 MPV 8.6 (*) nRBC 0.0 Neutrophils Relative 61.2 Lymphocytes Relative 22.4 Monocytes Relative 10.9 Eosinophils Relative 2.5 Basophils Relative 0.6 Immature Grans % 2.4 (*) Neutrophils Absolute 4.8 Lymphocytes Absolute 1.8 Monocytes Absolute 0.9 Eosinophils Absolute 0.2 Basophils Absolute 0.1 Immature Grans Absolute 0.2 (*) COMPLETE URINALYSIS WITH REFLEX TO CULTURE - Abnormal Color, Urine Colorless Clarity, Urine Clear pH, Urine 7.0 Leukocytes, Urine Negative Nitrite, Urine Negative Protein, Urine 20 (*) Glucose, Urine Normal Bilirubin, Urine Negative Ketones, Urine Negative Urobilinogen, Urine Normal Blood, Urine Negative RBC, Urine 0-2 WBC, Urine 0-2 Squamous Epithelial, Urine 0-2 Bacteria, Urine Few (*) Hyaline Casts, Urine Negative SPECIFIC GRAVITY OF URINE (NUMERIC) 1.005 Narrative: A specimen with <=10 WBC is not consistent with inflammation. This specimen will not reflex to a urine culture. VALPROIC ACID TOTAL LAMOTRIGINE LEVEL (BKR QUEST) THYROID STIMULATING HORMONE VITAMIN D DEFICIENCY SCREENING (VIT D 25) BLOOD GAS ARTERIAL COMPREHENSIVE METABOLIC PANEL WITH MG REFLEX Narrative: The following orders were created for panel order Comprehensive Metabolic Panel w/ Mg Reflex. Procedure Abnormality Status --------- ------ Comprehensive metabolic ...[[id number]] In process Please view results for these tests on the individual orders. COMPREHENSIVE METABOLIC PANEL All other labs were within normal range or not returned as of this dictation. EMERGENCY DEPARTMENT COURSE and DIFFERENTIAL DIAGNOSIS/MDM: Vitals: Vitals: 12/30/24 1110 12/30/24 1330 12/30/24 1745 BP: 123/63 123/57 (!) 130/105 BP Location: Right arm Right arm Right arm Patient Position: Lying Sitting Pulse: 65 70 67 Resp: 20 18 12 Temp: 36.9 C (98.4 F) TempSrc: Oral SpO2: 95% 94% 99% Weight: 113 kg (250 lb) Height: 1.6 m (5' 3") Medications clonazePAM (KlonoPIN) tablet 0.5 mg (has no administration in time range) divalproex (Depakote ER) 24 hr tablet 250 mg (has no administration in time range) lamoTRIgine (LaMICtal) tablet 150 mg (has no administration in time range) levothyroxine (Synthroid, Levoxyl) tablet 125 mcg (has no administration in time range) pantoprazole (ProtoNix) EC tablet 40 mg (has no administration in time range) rosuvastatin (Crestor) tablet 10 mg (has no administration in time range) sodium chloride 0.9% (NS) flush 5-40 mL (has no administration in time range) sodium chloride 0.9% (NS) flush 5-40 mL (has no administration in time range) sodium chloride 0.9 % infusion (has no administration in time range) acetaminophen (Tylenol) tablet 650 mg (has no administration in time range) Or acetaminophen (Tylenol) suppository 650 mg (has no administration in time range) ondansetron ODT (Zofran-ODT) disintegrating tablet 4 mg (has no administration in time range) Or ondansetron (Zofran) injection 4 mg (has no administration in time range) polyethylene glycol (PEG) 3350 (Miralax) packet 17 g (has no administration in time range) acetaminophen (Tylenol) tablet 1,000 mg (1,000 mg Oral Given 12/30/24 1201) Medical Decision Making Problems Addressed: Acute pain of left knee: complicated acute illness or injury Fall, initial encounter: complicated acute illness or injury Amount and/or Complexity of Data Reviewed Radiology: ordered. Risk OTC drugs. Decision regarding hospitalization. 59-year-old female present emergency department today for a fall. She is afebrile hemodynamically stable. She is been in emergency department 5 times in the last week for multiple falls. She has a splint to the left upper extremity from an old injury. She is complaining of left knee pain. Looking back it looks like every single time she has had left knee pain as well. Patient was given Tylenol I did an x-ray which was unremarkable. I have low suspicion for septic joint as there is no significant erythema, warmth, edema. I think this is most likely musculoskeletal pain. Patient did not feel comfortable going back to assisted living because she will have any help. I spoke with social science manager tried to get home health care involved but unfortunately they are not able to get her any help in the next few days. Her assisted living center does not have an escalation to custodial facility so she will be admitted for PT OT evaluation and placement. Diagnostic tests considered but not performed: External records reviewed: Diagnostics interpreted by me: Discussions with other clinicians: Chronic conditions impacting care: Social determinants of health affecting care: ED Medications managed: Medications clonazePAM (KlonoPIN) tablet 0.5 mg (has no administration in time range) divalproex (Depakote ER) 24 hr tablet 250 mg (has no administration in time range) lamoTRIgine (LaMICtal) tablet 150 mg (has no administration in time range) levothyroxine (Synthroid, Levoxyl) tablet 125 mcg (has no administration in time range) pantoprazole (ProtoNix) EC tablet 40 mg (has no administration in time range) rosuvastatin (Crestor) tablet 10 mg (has no administration in time range) sodium chloride 0.9% (NS) flush 5-40 mL (has no administration in time range) sodium chloride 0.9% (NS) flush 5-40 mL (has no administration in time range) sodium chloride 0.9 % infusion (has no administration in time range) acetaminophen (Tylenol) tablet 650 mg (has no administration in time range) Or acetaminophen (Tylenol) suppository 650 mg (has no administration in time range) ondansetron ODT (Zofran-ODT) disintegrating tablet 4 mg (has no administration in time range) Or ondansetron (Zofran) injection 4 mg (has no administration in time range) polyethylene glycol (PEG) 3350 (Miralax) packet 17 g (has no administration in time range) acetaminophen (Tylenol) tablet 1,000 mg (1,000 mg Oral Given 12/30/24 1201) Prescription drugs considered: I Pati Duenas MD am the sample examiner of record. FINAL IMPRESSION 1. Fall, initial encounter 2. Acute pain of left knee DISPOSITION Admit 12/30/2024 04:23:50 PM PATIENT REFERRED TO: Edith Pierce MD [address] [place] [address] [address] [facility] [id number] DISCHARGE MEDICATIONS: New Prescriptions No medications on file (Comment: Please note this report has been produced using speech recognition software and may contain errors related to that system including errors in grammar, punctuation, and spelling, as well as words and phrases that may be inappropriate. If there are any questions or concerns please feel free to contact the dictating provider for clarification.) Pati Duenas MD (electronically signed) Emergency Medicine Provider' [1] Past Medical History: Diagnosis Date Acid reflux Anxiety Arthritis Asperger syndrome Bipolar disorder (HCC) Chronic kidney disease stage 4 kidney failure Chronic pain Depression Edema of both legs GERD (gastroesophageal reflux disease) Hemorrhoids Hyperlipidemia Hypertension Hypothyroidism Iron (Fe) deficiency anemia Nephrogenic diabetes insipidus (HCC) Pain management Retention of urine, unspecified Sciatica SOB (shortness of breath) GRANT Type II or unspecified type diabetes mellitus without mention of complication, not stated as uncontrolled (HCC) Urinary incontinence nightly [2] Past Surgical History: Procedure Laterality Date 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 CHOLECYSTECTOMY COLON SURGERY c-diff COLONOSCOPY 03/28/2018 no polyps UPPER GASTROINTESTINAL ENDOSCOPY 03/28/2018 [3] Family History Problem Relation Name Age of Onset Hypertension Mother Cancer Father Colon cancer Maternal Grandmother Cancer Brother [4] Social History Socioeconomic History Marital status: Single Tobacco Use Smoking status: Former Smokeless tobacco: Never Vaping Use Vaping status: Never Used Substance and Sexual Activity Alcohol use: No Alcohol/week: 0.0 standard drinks of alcohol Drug use: No Social Drivers of Health Financial Resource Strain: Low Risk (10/03/2024) Overall Financial Resource Strain (CARDIA) Difficulty of Paying Living Expenses: Not hard at all Food Insecurity: No Food Insecurity (10/03/2024) Hunger Vital Sign Worried About Running Out of Food in the Last Year: Never true Ran Out of Food in the Last Year: Never true Transportation Needs: No Transportation Needs (10/03/2024) PRAPARE - Transportation Lack of Transportation (Medical): No Lack of Transportation (Non-Medical): No Physical Activity: Inactive (10/03/2024) Exercise Vital Sign Days of Exercise per Week: 0 days Minutes of Exercise per Session: 0 min Stress: No Stress Concern Present (10/03/2024) [employer] - Occupational Stress Questionnaire Feeling of Stress : Not at all Social Connections: Moderately Isolated (10/03/2024) Social Connection and Isolation Panel [NHANES] Frequency of Communication with Friends and Family: Three times a week Frequency of Social Gatherings with Friends and Family: Once a week Attends Cheondoism Services: 1 to 4 times per year Active Member of Clubs or Organizations: No Attends Club or Organization Meetings: Never Marital Status: Never Intimate Partner Violence: Not At Risk (10/03/2024) Humiliation, Afraid, Rape, and Kick questionnaire Fear of Current or Ex-Partner: No Emotionally Abused: No Physically Abused: No Sexually Abused: No Housing Stability: Low Risk (10/03/2024) Housing Stability Vital Sign Unable to Pay for Housing in the Last Year: No Number of Times Moved in the Last Year: 0 Homeless in the Last Year: No Pati Duenas MD 12/30/24 [id number] [facility] 12-29-2024 Hospital Discharge instructions Pat Prasad DO - 12/29/2024 8:51 PM EDT Continue to take your home prescribed medications for pain. Call your PCP for follow-up on Tuesday for continued management of your pain. documented in this encounter [facility] 12-29-2024 Emergency department Note EMERGENCY DEPARTMENT ENCOUNTER Pt Name: Jessy Mckeon Birthdate 1965 Date of evaluation: 12/29/2024 ED Provider: Pat Prasad DO CHIEF COMPLAINT Chief Complaint Patient presents with Head Injury EMS reports fall at facility with bumped head. HISTORY OF PRESENT ILLNESS (Location/Symptom, Timing/Onset, Context/Setting, Quality, Duration, Modifying Factors, Severity) Note limiting factors. I wore appropriate PPE for the entirety of this encounter. HPI Jessy Mckeon is a 59 y.o. who presents to the emergency department from SNF for continued pain. She denies any new fall or injury just complaining of left knee pain and left hand pain status post splinting for fracture. Both of which were evaluated previously. She denies any new complaints or falls or injuries. She states that she came in for Tylenol 3's for her pain. Patient has a history of chronic pain on several different medications at home. Nursing Notes were reviewed. Limitations to history: Outside historians: REVIEW OF SYSTEMS Review of Systems Pertinent positives and negatives as per HPI PAST MEDICAL HISTORY Medical History[1] SURGICAL HISTORY Surgical History[2] CURRENT MEDICATIONS Discharge Medication List as of 12/29/2024 8:51 PM CONTINUE these medications which have NOT CHANGED Details acetaminophen (Tylenol) 325 MG tablet Take by mouth., Historical Med amoxicillin (Amoxil) 500 MG capsule Take 2 capsules (1,000 mg) by mouth every 12 hours for 10 days., Starting Tue12/25/2024, Until Tue01/04/2025, Print bisacodyl (Dulcolax) 10 MG suppository Insert into the rectum., Historical Med buprenorphine (Butrans) 20 MCG/HR Place 1 patch on the skin., Historical Med clonazePAM (KlonoPIN) 0.5 MG tablet Take 1 tablet (0.5 mg) by mouth 2 times daily as needed for anxiety., Starting Tue09/14/2024, Until Tue11/13/2024 at 2359, Normal divalproex (Depakote ER) 250 MG 24 hr tablet Take 1 tablet (250 mg) by mouth in the morning and 1 tablet (250 mg) at noon and 1 tablet (250 mg) in the evening. Take with meals., Starting Tue01/10/2024, Normal DULoxetine (Cymbalta) [address] capsule Take 1 capsule (60 mg) by mouth daily. Do not crush or chew., Starting Tue06/18/2024, Normal epoetin molly-epbx (Retacrit) 95739 UNIT/ML injection Inject 10,000 Units under the skin., Historical Med ergocalciferol (Vitamin D-2) 1.25 MG (71497 UT) capsule Take 1.25 mg by mouth 1 (one) time per week., Historical Med furosemide (Lasix) 40 MG tablet Take 1 tablet (40 mg) by mouth daily., Starting 10/07/2024, Until Kayli 12/06/2024, Normal hydrALAZINE (Apresoline) 25 MG tablet Take 1 tablet (25 mg) by mouth 3 times daily., Starting Tue10/06/2024, Until Tue12/05/2024, Normal lamoTRIgine (LaMICtal) 150 MG tablet Take 1 tablet (150 mg) by mouth Nightly., Starting Tue12/14/2024, Normal levothyroxine (Synthroid, Levoxyl) 125 MCG tablet Take 1 tablet (125 mcg) by mouth daily. Do not start before August 06, 2024., Starting Tue08/06/2024, Historical Med MELATONIN PO Take by mouth., Historical Med metoprolol tartrate (Lopressor) 100 MG tablet Take 1 tablet (100 mg) by mouth 2 times daily., Starting Tue11/21/2023, Normal nystatin (Mycostatin) 401947 UNIT/GM powder Apply topically 2 times daily. Apply to groin, Starting Tue12/25/2024, Print omeprazole (PriLOSEC) [address] capsule Take 1 capsule (40 mg) by mouth every morning (before breakfast). Do not crush or chew., Starting Tue09/19/2023, Normal polyethylene glycol, PEG, 3350 (Miralax) 17 g packet Take by mouth., Historical Med Polysaccharide Iron Complex (IFEREX 150 PO) Take by mouth. Daily [id number], Historical Med risperiDONE (RisperDAL) 3 MG tablet Take 1 tablet (3 mg) by mouth Nightly., Starting Tue12/14/2024, Normal rosuvastatin (Crestor) 10 MG tablet TAKE 1 TABLET BY MOUTH DAILY, Starting Tue11/11/2023, Normal traZODone (Desyrel) 100 MG tablet Take 2 tablets (200 mg) by mouth Nightly., Starting Tue06/18/2024, Normal ALLERGIES Antihistamines, chlorpheniramine-type; Benztropine; Diphenhydramine; Nsaids; Other; and Venlafaxine FAMILY HISTORY Family History[3] SOCIAL HISTORY Social History[4] PHYSICAL EXAM ED Triage Vitals [12/29/242036] Temp Heart Rate Resp BP 36.9 C (98.4 F) 86 19 (!) 159/71 SpO2 Temp Source Heart Rate Source Patient Position 100 % Oral Monitor Lying BP Location FiO2 (%) Right arm -- Physical Exam Vitals and nursing note reviewed. Constitutional: General: She is not in acute distress. Appearance: She is not toxic-appearing. HENT: Head: Normocephalic and atraumatic. Eyes: Pupils: Pupils are equal, round, and reactive to light. Cardiovascular: Rate and Rhythm: Normal rate and regular rhythm. Pulmonary: Effort: Pulmonary effort is normal. No respiratory distress. Musculoskeletal: Cervical back: Normal range of motion. No tenderness. Skin: General: Skin is warm and dry. Neurological: General: No focal deficit present. Mental Status: She is alert and oriented to person, place, and time. DIAGNOSTIC RESULTS RADIOLOGY (Per Emergency Physician): Interpretation per the Radiologist below, if available at the time of this note: No orders to display LABS: Labs Reviewed - No data to display All other labs were within normal range or not returned as of this dictation. EMERGENCY DEPARTMENT COURSE and DIFFERENTIAL DIAGNOSIS/MDM: Vitals: Vitals: 12/29/242036 BP: (!) 159/71 BP Location: Right arm Patient Position: Lying Pulse: 86 Resp: 19 Temp: 36.9 C (98.4 F) TempSrc: Oral SpO2: 100% Weight: 113 kg (250 lb) Height: 1.6 m (5' 3") Medications HYDROcodone-acetaminophen ([place]) 5-325 MG per tablet 1 tablet (1 tablet Oral Given 12/29/242102) 59-year-old female presented to the ED for continued pain from prior falls. She denies any new injuries or complaints. She states that she had regular Tylenol at home which does not help came in for Tylenol 3's. No Tylenol sees at this facility is prescribed [place] and Butrans already for her chronic pain. As patient has no new injuries or complaints and has already been fully evaluated for her prior injuries no indication for further workup at this time. I discussed with patient that she needs to follow-up outpatient for her chronic pain and continue to take her home medication as prescribed. Patient stable for discharge with continued home medication for pain return precautions outpatient follow-up. Patient in agreement with plan. SCREENINGS [place] Coma Scale Best Eye Response: Spontaneous Best Verbal Response: Confused Best Motor Response: Follows commands Row[place] Coma Scale Score: 14 PROCEDURES: Unless otherwise noted below, none Procedures CRITICAL CARE TIME FINAL IMPRESSION 1. Other chronic pain DISPOSITION Discharge 12/29/2024 08:50:40 PM PATIENT REFERRED TO: Edith Pierce MD [address] [place] [address] [address] [facility] [id number] DISCHARGE MEDICATIONS: Discharge Medication List as of 12/29/2024 8:51 PM (Comment: Please note this report has been produced using speech recognition software and may contain errors related to that system including errors in grammar, punctuation, and spelling, as well as words and phrases that may be inappropriate. If there are any questions or concerns please feel free to contact the dictating provider for clarification.) Pat Prasad, DO (electronically signed) Emergency Medicine Provider [1] Past Medical History: Diagnosis Date Acid reflux Anxiety Arthritis Asperger syndrome Bipolar disorder (HCC) Chronic kidney disease stage 4 kidney failure Chronic pain Depression Edema of both legs GERD (gastroesophageal reflux disease) Hemorrhoids Hyperlipidemia Hypertension Hypothyroidism Iron (Fe) deficiency anemia Nephrogenic diabetes insipidus (HCC) Pain management Retention of urine, unspecified Sciatica SOB (shortness of breath) GRANT Type II or unspecified type diabetes mellitus without mention of complication, not stated as uncontrolled (HCC) Urinary incontinence nightly [2] Past Surgical History: Procedure Laterality Date 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 CHOLECYSTECTOMY COLON SURGERY c-diff COLONOSCOPY 03/28/2018 no polyps UPPER GASTROINTESTINAL ENDOSCOPY 03/28/2018 [3] Family History Problem Relation Name Age of Onset Hypertension Mother Cancer Father Colon cancer Maternal Grandmother Cancer Brother [4] Social History Socioeconomic History Marital status: Single Tobacco Use Smoking status: Former Smokeless tobacco: Never Vaping Use Vaping status: Never Used Substance and Sexual Activity Alcohol use: No Alcohol/week: 0.0 standard drinks of alcohol Drug use: No Social Drivers of Health Financial Resource Strain: Low Risk (10/03/2024) Overall Financial Resource Strain (CARDIA) Difficulty of Paying Living Expenses: Not hard at all Food Insecurity: No Food Insecurity (10/03/2024) Hunger Vital Sign Worried About Running Out of Food in the Last Year: Never true Ran Out of Food in the Last Year: Never true Transportation Needs: No Transportation Needs (10/03/2024) PRAPARE - Transportation Lack of Transportation (Medical): No Lack of Transportation (Non-Medical): No Physical Activity: Inactive (10/03/2024) Exercise Vital Sign Days of Exercise per Week: 0 days Minutes of Exercise per Session: 0 min Stress: No Stress Concern Present (10/03/2024) [employer] - Occupational Stress Questionnaire Feeling of Stress : Not at all Social Connections: Moderately Isolated (10/03/2024) Social Connection and Isolation Panel [NHANES] Frequency of Communication with Friends and Family: Three times a week Frequency of Social Gatherings with Friends and Family: Once a week Attends Cheondoism Services: 1 to 4 times per year Active Member of Clubs or Organizations: No Attends Club or Organization Meetings: Never Marital Status: Never Intimate Partner Violence: Not At Risk (10/03/2024) Humiliation, Afraid, Rape, and Kick questionnaire Fear of Current or Ex-Partner: No Emotionally Abused: No Physically Abused: No Sexually Abused: No Housing Stability: Low Risk (10/03/2024) Housing Stability Vital Sign Unable to Pay for Housing in the Last Year: No Number of Times Moved in the Last Year: 0 Homeless in the Last Year: No Pat Prasad DO 12/30/24 0000 Pt. Arrived to ED via EMS with complaint of EMS reported fall at facility with "bumped head." Pt. Stated no changes since ED visit during previous shift with departure on 12/29/2024. documented in this encounter [facility] 12-29-2024 Emergency department Triage note Pt. Arrived to ED via EMS with complaint of EMS reported fall at facility with "bumped head." Pt. Stated no changes since ED visit during previous shift with departure on 12/29/2024. [facility] 12-29-2024 Physician Emergency department Note EMERGENCY DEPARTMENT ENCOUNTER Pt Name: Jessy Mckeon Birthdate 1965 Date of evaluation: 12/29/2024 ED Provider: Pat Prasad DO CHIEF COMPLAINT Chief Complaint Patient presents with Head Injury EMS reports fall at facility with bumped head. HISTORY OF PRESENT ILLNESS (Location/Symptom, Timing/Onset, Context/Setting, Quality, Duration, Modifying Factors, Severity) Note limiting factors. I wore appropriate PPE for the entirety of this encounter. HPI Jessy Mckeon is a 59 y.o. who presents to the emergency department from SNF for continued pain. She denies any new fall or injury just complaining of left knee pain and left hand pain status post splinting for fracture. Both of which were evaluated previously. She denies any new complaints or falls or injuries. She states that she came in for Tylenol 3's for her pain. Patient has a history of chronic pain on several different medications at home. Nursing Notes were reviewed. Limitations to history: Outside historians: REVIEW OF SYSTEMS Review of Systems Pertinent positives and negatives as per HPI PAST MEDICAL HISTORY Medical History[1] SURGICAL HISTORY Surgical History[2] CURRENT MEDICATIONS Discharge Medication List as of 12/29/2024 8:51 PM CONTINUE these medications which have NOT CHANGED Details acetaminophen (Tylenol) 325 MG tablet Take by mouth., Historical Med amoxicillin (Amoxil) 500 MG capsule Take 2 capsules (1,000 mg) by mouth every 12 hours for 10 days., Starting Tue12/25/2024, Until Tue01/04/2025, Print bisacodyl (Dulcolax) 10 MG suppository Insert into the rectum., Historical Med buprenorphine (Butrans) 20 MCG/HR Place 1 patch on the skin., Historical Med clonazePAM (KlonoPIN) 0.5 MG tablet Take 1 tablet (0.5 mg) by mouth 2 times daily as needed for anxiety., Starting Tue09/14/2024, Until Tue11/13/2024 at 2359, Normal divalproex (Depakote ER) 250 MG 24 hr tablet Take 1 tablet (250 mg) by mouth in the morning and 1 tablet (250 mg) at noon and 1 tablet (250 mg) in the evening. Take with meals., Starting Tue01/10/2024, Normal DULoxetine (Cymbalta) [address] capsule Take 1 capsule (60 mg) by mouth daily. Do not crush or chew., Starting Tue06/18/2024, Normal epoetin molly-epbx (Retacrit) 24771 UNIT/ML injection Inject 10,000 Units under the skin., Historical Med ergocalciferol (Vitamin D-2) 1.25 MG (54783 UT) capsule Take 1.25 mg by mouth 1 (one) time per week., Historical Med furosemide (Lasix) 40 MG tablet Take 1 tablet (40 mg) by mouth daily., Starting 10/07/2024, Until Kayli 12/06/2024, Normal hydrALAZINE (Apresoline) 25 MG tablet Take 1 tablet (25 mg) by mouth 3 times daily., Starting 10/06/2024, Until Tue12/05/2024, Normal lamoTRIgine (LaMICtal) 150 MG tablet Take 1 tablet (150 mg) by mouth Nightly., Starting Tue12/14/2024, Normal levothyroxine (Synthroid, Levoxyl) 125 MCG tablet Take 1 tablet (125 mcg) by mouth daily. Do not start before August 06, 2024., Starting Tue08/06/2024, Historical Med MELATONIN PO Take by mouth., Historical Med metoprolol tartrate (Lopressor) 100 MG tablet Take 1 tablet (100 mg) by mouth 2 times daily., Starting Tue11/21/2023, Normal nystatin (Mycostatin) 362196 UNIT/GM powder Apply topically 2 times daily. Apply to groin, Starting Tue12/25/2024, Print omeprazole (PriLOSEC) [address] capsule Take 1 capsule (40 mg) by mouth every morning (before breakfast). Do not crush or chew., Starting Tue09/19/2023, Normal polyethylene glycol, PEG, 3350 (Miralax) 17 g packet Take by mouth., Historical Med Polysaccharide Iron Complex (IFEREX 150 PO) Take by mouth. Daily [id number], Historical Med risperiDONE (RisperDAL) 3 MG tablet Take 1 tablet (3 mg) by mouth Nightly., Starting Tue12/14/2024, Normal rosuvastatin (Crestor) 10 MG tablet TAKE 1 TABLET BY MOUTH DAILY, Starting Tue11/11/2023, Normal traZODone (Desyrel) 100 MG tablet Take 2 tablets (200 mg) by mouth Nightly., Starting Tue06/18/2024, Normal ALLERGIES Antihistamines, chlorpheniramine-type; Benztropine; Diphenhydramine; Nsaids; Other; and Venlafaxine FAMILY HISTORY Family History[3] SOCIAL HISTORY Social History[4] PHYSICAL EXAM ED Triage Vitals [12/29/242036] Temp Heart Rate Resp BP 36.9 C (98.4 F) 86 19 (!) 159/71 SpO2 Temp Source Heart Rate Source Patient Position 100 % Oral Monitor Lying BP Location FiO2 (%) Right arm -- Physical Exam Vitals and nursing note reviewed. Constitutional: General: She is not in acute distress. Appearance: She is not toxic-appearing. HENT: Head: Normocephalic and atraumatic. Eyes: Pupils: Pupils are equal, round, and reactive to light. Cardiovascular: Rate and Rhythm: Normal rate and regular rhythm. Pulmonary: Effort: Pulmonary effort is normal. No respiratory distress. Musculoskeletal: Cervical back: Normal range of motion. No tenderness. Skin: General: Skin is warm and dry. Neurological: General: No focal deficit present. Mental Status: She is alert and oriented to person, place, and time. DIAGNOSTIC RESULTS RADIOLOGY (Per Emergency Physician): Interpretation per the Radiologist below, if available at the time of this note: No orders to display LABS: Labs Reviewed - No data to display All other labs were within normal range or not returned as of this dictation. EMERGENCY DEPARTMENT COURSE and DIFFERENTIAL DIAGNOSIS/MDM: Vitals: Vitals: 12/29/242036 BP: (!) 159/71 BP Location: Right arm Patient Position: Lying Pulse: 86 Resp: 19 Temp: 36.9 C (98.4 F) TempSrc: Oral SpO2: 100% Weight: 113 kg (250 lb) Height: 1.6 m (5' 3") Medications HYDROcodone-acetaminophen ([place]) 5-325 MG per tablet 1 tablet (1 tablet Oral Given 12/29/242102) 59-year-old female presented to the ED for continued pain from prior falls. She denies any new injuries or complaints. She states that she had regular Tylenol at home which does not help came in for Tylenol 3's. No Tylenol sees at this facility is prescribed [place] and Butrans already for her chronic pain. As patient has no new injuries or complaints and has already been fully evaluated for her prior injuries no indication for further workup at this time. I discussed with patient that she needs to follow-up outpatient for her chronic pain and continue to take her home medication as prescribed. Patient stable for discharge with continued home medication for pain return precautions outpatient follow-up. Patient in agreement with plan. SCREENINGS [place] Coma Scale Best Eye Response: Spontaneous Best Verbal Response: Confused Best Motor Response: Follows commands [place] Coma Scale Score: 14 PROCEDURES: Unless otherwise noted below, none Procedures CRITICAL CARE TIME FINAL IMPRESSION 1. Other chronic pain DISPOSITION Discharge 12/29/2024 08:50:40 PM PATIENT REFERRED TO: Edith Pierce MD [address] [place] [address] [address] [facility] [id number] DISCHARGE MEDICATIONS: Discharge Medication List as of 12/29/2024 8:51 PM (Comment: Please note this report has been produced using speech recognition software and may contain errors related to that system including errors in grammar, punctuation, and spelling, as well as words and phrases that may be inappropriate. If there are any questions or concerns please feel free to contact the dictating provider for clarification.) Pat Prasad DO (electronically signed) Emergency Medicine Provider [1] Past Medical History: Diagnosis Date Acid reflux Anxiety Arthritis Asperger syndrome Bipolar disorder (HCC) Chronic kidney disease stage 4 kidney failure Chronic pain Depression Edema of both legs GERD (gastroesophageal reflux disease) Hemorrhoids Hyperlipidemia Hypertension Hypothyroidism Iron (Fe) deficiency anemia Nephrogenic diabetes insipidus (HCC) Pain management Retention of urine, unspecified Sciatica SOB (shortness of breath) GRANT Type II or unspecified type diabetes mellitus without mention of complication, not stated as uncontrolled (HCC) Urinary incontinence nightly [2] Past Surgical History: Procedure Laterality Date 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 CHOLECYSTECTOMY COLON SURGERY c-diff COLONOSCOPY 03/28/2018 no polyps UPPER GASTROINTESTINAL ENDOSCOPY 03/28/2018 [3] Family History Problem Relation Name Age of Onset Hypertension Mother Cancer Father Colon cancer Maternal Grandmother Cancer Brother [4] Social History Socioeconomic History Marital status: Single Tobacco Use Smoking status: Former Smokeless tobacco: Never Vaping Use Vaping status: Never Used Substance and Sexual Activity Alcohol use: No Alcohol/week: 0.0 standard drinks of alcohol Drug use: No Social Drivers of Health Financial Resource Strain: Low Risk (10/03/2024) Overall Financial Resource Strain (CARDIA) Difficulty of Paying Living Expenses: Not hard at all Food Insecurity: No Food Insecurity (10/03/2024) Hunger Vital Sign Worried About Running Out of Food in the Last Year: Never true Ran Out of Food in the Last Year: Never true Transportation Needs: No Transportation Needs (10/03/2024) PRAPARE - Transportation Lack of Transportation (Medical): No Lack of Transportation (Non-Medical): No Physical Activity: Inactive (10/03/2024) Exercise Vital Sign Days of Exercise per Week: 0 days Minutes of Exercise per Session: 0 min Stress: No Stress Concern Present (10/03/2024) [employer] [employer] - Occupational Stress Questionnaire Feeling of Stress : Not at all Social Connections: Moderately Isolated (10/03/2024) Social Connection and Isolation Panel [NHANES] Frequency of Communication with Friends and Family: Three times a week Frequency of Social Gatherings with Friends and Family: Once a week Attends Che[employer]ism Services: 1 to 4 times per year Active Member of Clubs or Organizations: No Attends Club or Organization Meetings: Never Marital Status: Never Intimate Partner Violence: Not At Risk (10/03/2024) Humiliation, Afraid, Rape, and Kick questionnaire Fear of Current or Ex-Partner: No Emotionally Abused: No Physically Abused: No Sexually Abused: No Housing Stability: Low Risk (10/03/2024) Housing Stability Vital Sign Unable to Pay for Housing in the Last Year: No Number of Times Moved in the Last Year: 0 Homeless in the Last Year: No Pat Prasad DO 12/30/24 0000 [facility] 12-29-2024 Emergency department Note Celsa arrived for transport. Hand off report given to medics. [facility] 12-29-2024 Emergency department Note Celsa arrived for transport. Hand off report given to medics. Notified physician of patients skin concerns on the back of her left thigh. Media collected. The resident provided with discharge instructions and educated to order picker/assembler time. She was explained that she would be given a walking boot. The patient refused the boot and stated she only wanted an jennifer bandage. The physician was notified and he stated ok to give her an jennifer bandage instead. Jennifer bandage applied to her left foot. The patient turned of call light asked for ice water, this nurse returned with ice water she then stated I hope its not ice water I need tap water. The patient then turned automation/controls manager light and stated she needed nursing moral support to move herself up in the bed. The patient was provided with encouragement to move up in bed. This nurse and a second nurse attempted to ambulate the patient. The patient became verbally aggressive towards staff and giving staff the middle finger. Security was called and assisted with behaviors of patient. The patient was able to stand independently and ambulate with walker. She was assisted to the bedside commode. The patient then was assisted back in bed. The patient sat down/ flopped down onto the bed with little self control. The patient stated she wanted the "men" to assist her. This nurse educated the patient that the officer can not provide her with care. documented in this encounter [facility] 12-29-2024 Emergency department Note Notified physician of patients skin concerns on the back of her left thigh. Media collected. [facility] 12-29-2024 Emergency department Note The resident provided with discharge instructions and educated to order picker/assembler time. She was explained that she would be given a walking boot. The patient refused the boot and stated she only wanted an jennifer bandage. The physician was notified and he stated ok to give her an jennifer bandage instead. Jenniefr bandage applied to her left foot. [facility] 12-29-2024 Emergency department Note The patient turned of call light asked for ice water, this nurse returned with ice water she then stated I hope its not ice water I need tap water. The patient then turned automation/controls manager light and stated she needed nursing moral support to move herself up in the bed. The patient was provided with encouragement to move up in bed. [place] [id number] Emergency department Note This nurse and a second nurse attempted to ambulate the patient. The patient became verbally aggressive towards staff and giving staff the middle finger. Security was called and assisted with behaviors of patient. The patient was able to stand independently and ambulate with walker. She was assisted to the bedside commode. The patient then was assisted back in bed. The patient sat down/ flopped down onto the bed with little self control. The patient stated she wanted the "men" to assist her. This nurse educated the patient that the officer can not provide her with care. T [facility] 12-28-2024 Telephone encounter Note Pat notified of verbal order [facility] 12-28-2024 Telephone encounter Note Ok for verbal order social science manager [facility] 12-28-2024 Telephone encounter Note Name of caller: Pat Contact phone number: [phone] Relationship to Patient: patient Provider: Dr Pierce Practice: obgyn Chief Complaint/Reason for Call: Pat is calling with a patient update. She has been in the ER twice this week. First for UTI, second time multiple falls with fractured left wrist. This week she has declined in wanting to do things, urinating in her chair, refusing to walk in her rollater, refusing to stand for the nurse to take care of her buttox wounds. They are afraid she will end up flipping wheel chair when attempting to go in it. Pat is asking for a social science manager referral to discuss nursing facillity. Best time of day caller can be reached: AM Patient advised that office/PCP has 24-48 business hours to return their call: Yes [facility] 12-28-2024 Emergency department Note Update called to patients facility. [facility] 12-28-2024 Emergency department Note Update called to patients facility. Attempted to call patients facility 3 times with no answer to give information about patients discharge. Splint applied by provider. Associated Order(s): Splint Application EMERGENCY DEPARTMENT ENCOUNTER Pt Name: Jessy Mckeon Birthdate 1965 Date of evaluation: 12/28/2024 ED Provider: Arslan Kirkland MD CHIEF COMPLAINT Chief Complaint Patient presents with Fall HISTORY OF PRESENT ILLNESS (Location/Symptom, Timing/Onset, Context/Setting, Quality, Duration, Modifying Factors, Severity) Note limiting factors. I wore appropriate PPE for the entirety of this encounter. HPI Jessy Mckeon is a 59 y.o. who presents to the emergency department with left hand pain after fall with some bruising, she thinks she might of bumped her head but has no headache no visible evidence of trauma no vision changes no nausea or vomiting and she does not want a CT scan Nursing Notes were reviewed. Limitations to history: None Outside historians: EMS REVIEW OF SYSTEMS Review of Systems Pertinent positives and negatives as per HPI PAST MEDICAL HISTORY Medical History[1] SURGICAL HISTORY Surgical History[2] CURRENT MEDICATIONS Previous Medications ACETAMINOPHEN (TYLENOL) 325 MG TABLET Take by mouth. AMOXICILLIN (AMOXIL) 500 MG CAPSULE Take 2 capsules (1,000 mg) by mouth every 12 hours for 10 days. BISACODYL (DULCOLAX) 10 MG SUPPOSITORY Insert into the rectum. BUPRENORPHINE (BUTRANS) 20 MCG/HR Place 1 patch on the skin. CLONAZEPAM (KLONOPIN) 0.5 MG TABLET Take 1 tablet (0.5 mg) by mouth 2 times daily as needed for anxiety. DIVALPROEX (DEPAKOTE ER) 250 MG 24 HR TABLET Take 1 tablet (250 mg) by mouth in the morning and 1 tablet (250 mg) at noon and 1 tablet (250 mg) in the evening. Take with meals. DULOXETINE (CYMBALTA) [address] CAPSULE Take 1 capsule (60 mg) by mouth daily. Do not crush or chew. EPOETIN MOLLY-EPBX (RETACRIT) 40490 UNIT/ML INJECTION Inject 10,000 Units under the skin. ERGOCALCIFEROL (VITAMIN D-2) 1.25 MG (34713 UT) CAPSULE Take 1.25 mg by mouth 1 (one) time per week. FUROSEMIDE (LASIX) 40 MG TABLET Take 1 tablet (40 mg) by mouth daily. HYDRALAZINE (APRESOLINE) 25 MG TABLET Take 1 tablet (25 mg) by mouth 3 times daily. LAMOTRIGINE (LAMICTAL) 150 MG TABLET Take 1 tablet (150 mg) by mouth Nightly. LEVOTHYROXINE (SYNTHROID, LEVOXYL) 125 MCG TABLET Take 1 tablet (125 mcg) by mouth daily. Do not start before August 06, 2024. MELATONIN PO Take by mouth. METOPROLOL TARTRATE (LOPRESSOR) 100 MG TABLET Take 1 tablet (100 mg) by mouth 2 times daily. NYSTATIN (MYCOSTATIN) 922511 UNIT/GM POWDER Apply topically 2 times daily. Apply to groin OMEPRAZOLE (PRILOSEC) [address] CAPSULE Take 1 capsule (40 mg) by mouth every morning (before breakfast). Do not crush or chew. POLYETHYLENE GLYCOL, PEG, 3350 (MIRALAX) 17 G PACKET Take by mouth. POLYSACCHARIDE IRON COMPLEX (IFEREX 150 PO) Take by mouth. Daily Dft-Mjd-Uelvjp RISPERIDONE (RISPERDAL) 3 MG TABLET Take 1 tablet (3 mg) by mouth Nightly. ROSUVASTATIN (CRESTOR) 10 MG TABLET TAKE 1 TABLET BY MOUTH DAILY TRAZODONE (DESYREL) 100 MG TABLET Take 2 tablets (200 mg) by mouth Nightly. ALLERGIES Antihistamines, chlorpheniramine-type; Benztropine; Diphenhydramine; Nsaids; Other; and Venlafaxine FAMILY HISTORY Family History[3] SOCIAL HISTORY Social History[4] PHYSICAL EXAM ED Triage Vitals [12/28/24 0514] Temp Heart Rate Resp BP 36.8 C (98.2 F) 76 18 112/61 SpO2 Temp Source Heart Rate Source Patient Position 98 % Oral -- -- BP Location FiO2 (%) -- -- Physical Exam No visible evidence of trauma to the scalp, bruising over the left fifth metacarpal with slight swelling and tenderness DIAGNOSTIC RESULTS RADIOLOGY (Per Emergency Physician): Interpretation per the Radiologist below, if available at the time of this note: XR hand 3+ views left (Results Pending) LABS: Labs Reviewed - No data to display All other labs were within normal range or not returned as of this dictation. EMERGENCY DEPARTMENT COURSE and DIFFERENTIAL DIAGNOSIS/MDM: Vitals: Vitals: 12/28/24 0514 BP: 112/61 Pulse: 76 Resp: 18 Temp: 36.8 C (98.2 F) TempSrc: Oral SpO2: 98% Medications acetaminophen (Tylenol) 500 MG tablet - Pyxis ADS Override Pull (has no administration in time range) acetaminophen (Tylenol) tablet 1,000 mg (1,000 mg Oral Given 12/28/24 0554) SCREENINGS MDM elements: The patient presented with chief complaint of fall complaining of left hand pain, has no other complaints, not on blood thinners. The differential diagnosis associated with this patient's presentation includes fracture versus contusion. Our workup consisted of ordering/reviewing: X-ray of the left hand. To aid in management, I performed an independent interpretation of Xray(s) inter by me shows fracture of the fifth metacarpal shaft. The patient will be Discharged. Patient is in agreement with this plan. Shared Decision Making the patient and I have engaged in Shared Decision Making to ensure adequate and appropriate information was provided to the patient to assist them in choosing a course of treatment based on their own preferences and concerns. She declined CT of the brain PROCEDURES: Unless otherwise noted below, none Splint Application Performed by: Arslan Kirkland MD Authorized by: Arslan Kirkland MD Consent: Consent obtained: Verbal Consent given by: Patient Matlock protocol: Patient identity confirmed: Verbally with patient Pre-procedure details: Distal neurologic exam: Normal Distal perfusion: distal pulses strong and brisk capillary refill Procedure details: Location: Hand Hand location: L hand Splint type: Ulnar gutter Supplies: Fiberglass Attestation: Splint applied and adjusted personally by me Post-procedure details: Distal neurologic exam: Normal Distal perfusion: distal pulses strong and brisk capillary refill Procedure completion: Tolerated well, no immediate complications Post-procedure imaging: not applicable CRITICAL CARE TIME None FINAL IMPRESSION 1. Nondisplaced fracture of shaft of fifth metacarpal bone, left hand, initial encounter for closed fracture DISPOSITION Discharge 12/28/2024 05:56:52 AM PATIENT REFERRED TO: [facility] [address] [place] [address] Dr [place] [address] DISCHARGE MEDICATIONS: New Prescriptions No medications on file (Comment: Please note this report has been produced using speech recognition software and may contain errors related to that system including errors in grammar, punctuation, and spelling, as well as words and phrases that may be inappropriate. If there are any questions or concerns please feel free to contact the dictating provider for clarification.) Arslan Kirkland MD (electronically signed) Emergency Medicine Provider [1] Past Medical History: Diagnosis Date Acid reflux Anxiety Arthritis Asperger syndrome Bipolar disorder (HCC) Chronic kidney disease stage 4 kidney failure Chronic pain Depression Edema of both legs GERD (gastroesophageal reflux disease) Hemorrhoids Hyperlipidemia Hypertension Hypothyroidism Iron (Fe) deficiency anemia Nephrogenic diabetes insipidus (HCC) Pain management Retention of urine, unspecified Sciatica SOB (shortness of breath) GRANT Type II or unspecified type diabetes mellitus without mention of complication, not stated as uncontrolled (HCC) Urinary incontinence nightly [2] Past Surgical History: Procedure Laterality Date 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 CHOLECYSTECTOMY COLON SURGERY c-diff COLONOSCOPY 03/28/2018 no polyps UPPER GASTROINTESTINAL ENDOSCOPY 03/28/2018 [3] Family History Problem Relation Name Age of Onset Hypertension Mother Cancer Father Colon cancer Maternal Grandmother Cancer Brother [4] Social History Socioeconomic History Marital status: Single Tobacco Use Smoking status: Former Smokeless tobacco: Never Vaping Use Vaping status: Never Used Substance and Sexual Activity Alcohol use: No Alcohol/week: 0.0 standard drinks of alcohol Drug use: No Social Drivers of Health Financial Resource Strain: Low Risk (10/03/2024) Overall Financial Resource Strain (CARDIA) Difficulty of Paying Living Expenses: Not hard at all Food Insecurity: No Food Insecurity (10/03/2024) Hunger Vital Sign Worried About Running Out of Food in the Last Year: Never true Ran Out of Food in the Last Year: Never true Transportation Needs: No Transportation Needs (10/03/2024) PRAPARE - Transportation Lack of Transportation (Medical): No Lack of Transportation (Non-Medical): No Physical Activity: Inactive (10/03/2024) Exercise Vital Sign Days of Exercise per Week: 0 days Minutes of Exercise per Session: 0 min Stress: No Stress Concern Present (10/03/2024) [employer] - Occupational Stress Questionnaire Feeling of Stress : Not at all Social Connections: Moderately Isolated (10/03/2024) Social Connection and Isolation Panel [NHANES] Frequency of Communication with Friends and Family: Three times a week Frequency of Social Gatherings with Friends and Family: Once a week Attends Cheondoism Services: 1 to 4 times per year Active Member of Clubs or Organizations: No Attends Club or Organization Meetings: Never Marital Status: Never Intimate Partner Violence: Not At Risk (10/03/2024) Humiliation, Afraid, Rape, and Kick questionnaire Fear of Current or Ex-Partner: No Emotionally Abused: No Physically Abused: No Sexually Abused: No Housing Stability: Low Risk (10/03/2024) Housing Stability Vital Sign Unable to Pay for Housing in the Last Year: No Number of Times Moved in the Last Year: 0 Homeless in the Last Year: No Arslan Kirkland MD 12/28/24 0559 Pt to ED after a fall, patient was trying to get to her chair and reports falling twice, does state she hit her head, and is complaining of left hand pain, denies LOC. PT was also recently dx w/ UTI and is on amoxicillin documented in this encounter [facility] 12-28-2024 Emergency department Note Attempted to call patients facility 3 times with no answer to give information about patients discharge. [facility] 12-28-2024 Emergency department Note Splint applied by provider. [facility] 12-28-2024 Emergency department Triage note Pt to ED after a fall, patient was trying to get to her chair and reports falling twice, does state she hit her head, and is complaining of left hand pain, denies LOC. PT was also recently dx w/ UTI and is on amoxicillin [facility] 12-28-2024 Physician Emergency department Note Associated Order(s): Splint Application EMERGENCY DEPARTMENT ENCOUNTER Pt Name: Jessy Mckeon Birthdate 1965 Date of evaluation: 12/28/2024 ED Provider: Arslan Kirkland MD CHIEF COMPLAINT Chief Complaint Patient presents with Fall HISTORY OF PRESENT ILLNESS (Location/Symptom, Timing/Onset, Context/Setting, Quality, Duration, Modifying Factors, Severity) Note limiting factors. I wore appropriate PPE for the entirety of this encounter. HPI Jessy Mckeon is a 59 y.o. who presents to the emergency department with left hand pain after fall with some bruising, she thinks she might of bumped her head but has no headache no visible evidence of trauma no vision changes no nausea or vomiting and she does not want a CT scan Nursing Notes were reviewed. Limitations to history: None Outside historians: EMS REVIEW OF SYSTEMS Review of Systems Pertinent positives and negatives as per HPI PAST MEDICAL HISTORY Medical History[1] SURGICAL HISTORY Surgical History[2] CURRENT MEDICATIONS Previous Medications ACETAMINOPHEN (TYLENOL) 325 MG TABLET Take by mouth. AMOXICILLIN (AMOXIL) 500 MG CAPSULE Take 2 capsules (1,000 mg) by mouth every 12 hours for 10 days. BISACODYL (DULCOLAX) 10 MG SUPPOSITORY Insert into the rectum. BUPRENORPHINE (BUTRANS) 20 MCG/HR Place 1 patch on the skin. CLONAZEPAM (KLONOPIN) 0.5 MG TABLET Take 1 tablet (0.5 mg) by mouth 2 times daily as needed for anxiety. DIVALPROEX (DEPAKOTE ER) 250 MG 24 HR TABLET Take 1 tablet (250 mg) by mouth in the morning and 1 tablet (250 mg) at noon and 1 tablet (250 mg) in the evening. Take with meals. DULOXETINE (CYMBALTA) [address] CAPSULE Take 1 capsule (60 mg) by mouth daily. Do not crush or chew. EPOETIN MOLLY-EPBX (RETACRIT) 86920 UNIT/ML INJECTION Inject 10,000 Units under the skin. ERGOCALCIFEROL (VITAMIN D-2) 1.25 MG (08210 UT) CAPSULE Take 1.25 mg by mouth 1 (one) time per week. FUROSEMIDE (LASIX) 40 MG TABLET Take 1 tablet (40 mg) by mouth daily. HYDRALAZINE (APRESOLINE) 25 MG TABLET Take 1 tablet (25 mg) by mouth 3 times daily. LAMOTRIGINE (LAMICTAL) 150 MG TABLET Take 1 tablet (150 mg) by mouth Nightly. LEVOTHYROXINE (SYNTHROID, LEVOXYL) 125 MCG TABLET Take 1 tablet (125 mcg) by mouth daily. Do not start before August 06, 2024. MELATONIN PO Take by mouth. METOPROLOL TARTRATE (LOPRESSOR) 100 MG TABLET Take 1 tablet (100 mg) by mouth 2 times daily. NYSTATIN (MYCOSTATIN) 484670 UNIT/GM POWDER Apply topically 2 times daily. Apply to groin OMEPRAZOLE (PRILOSEC) [address] CAPSULE Take 1 capsule (40 mg) by mouth every morning (before breakfast). Do not crush or chew. POLYETHYLENE GLYCOL, PEG, 3350 (MIRALAX) 17 G PACKET Take by mouth. POLYSACCHARIDE IRON COMPLEX (IFEREX 150 PO) Take by mouth. Daily Zto-Onl-Clbmha RISPERIDONE (RISPERDAL) 3 MG TABLET Take 1 tablet (3 mg) by mouth Nightly. ROSUVASTATIN (CRESTOR) 10 MG TABLET TAKE 1 TABLET BY MOUTH DAILY TRAZODONE (DESYREL) 100 MG TABLET Take 2 tablets (200 mg) by mouth Nightly. ALLERGIES Antihistamines, chlorpheniramine-type; Benztropine; Diphenhydramine; Nsaids; Other; and Venlafaxine FAMILY HISTORY Family History[3] SOCIAL HISTORY Social History[4] PHYSICAL EXAM ED Triage Vitals [12/28/24 0514] Temp Heart Rate Resp BP 36.8 C (98.2 F) 76 18 112/61 SpO2 Temp Source Heart Rate Source Patient Position 98 % Oral -- -- BP Location FiO2 (%) -- -- Physical Exam No visible evidence of trauma to the scalp, bruising over the left fifth metacarpal with slight swelling and tenderness DIAGNOSTIC RESULTS RADIOLOGY (Per Emergency Physician): Interpretation per the Radiologist below, if available at the time of this note: XR hand 3+ views left (Results Pending) LABS: Labs Reviewed - No data to display All other labs were within normal range or not returned as of this dictation. EMERGENCY DEPARTMENT COURSE and DIFFERENTIAL DIAGNOSIS/MDM: Vitals: Vitals: 12/28/24 0514 BP: 112/61 Pulse: 76 Resp: 18 Temp: 36.8 C (98.2 F) TempSrc: Oral SpO2: 98% Medications acetaminophen (Tylenol) 500 MG tablet - Pyxis ADS Override Pull (has no administration in time range) acetaminophen (Tylenol) tablet 1,000 mg (1,000 mg Oral Given 12/28/24 0554) SCREENINGS MDM elements: The patient presented with chief complaint of fall complaining of left hand pain, has no other complaints, not on blood thinners. The differential diagnosis associated with this patient's presentation includes fracture versus contusion. Our workup consisted of ordering/reviewing: X-ray of the left hand. To aid in management, I performed an independent interpretation of Xray(s) inter by me shows fracture of the fifth metacarpal shaft. The patient will be Discharged. Patient is in agreement with this plan. Shared Decision Making the patient and I have engaged in Shared Decision Making to ensure adequate and appropriate information was provided to the patient to assist them in choosing a course of treatment based on their own preferences and concerns. She declined CT of the brain PROCEDURES: Unless otherwise noted below, none Splint Application Performed by: Arslan Kirkland MD Authorized by: Arslan Kirkland MD Consent: Consent obtained: Verbal Consent given by: Patient Matlock protocol: Patient identity confirmed: Verbally with patient Pre-procedure details: Distal neurologic exam: Normal Distal perfusion: distal pulses strong and brisk capillary refill Procedure details: Location: Hand Hand location: L hand Splint type: Ulnar gutter Supplies: Fiberglass Attestation: Splint applied and adjusted personally by me Post-procedure details: Distal neurologic exam: Normal Distal perfusion: distal pulses strong and brisk capillary refill Procedure completion: Tolerated well, no immediate complications Post-procedure imaging: not applicable CRITICAL CARE TIME None FINAL IMPRESSION 1. Nondisplaced fracture of shaft of fifth metacarpal bone, left hand, initial encounter for closed fracture DISPOSITION Discharge 12/28/2024 05:56:52 AM PATIENT REFERRED TO: [facility] [address] [place] [address] Dr [place] [id number] DISCHARGE MEDICATIONS: New Prescriptions No medications on file (Comment: Please note this report has been produced using speech recognition software and may contain errors related to that system including errors in grammar, punctuation, and spelling, as well as words and phrases that may be inappropriate. If there are any questions or concerns please feel free to contact the dictating provider for clarification.) Arslan Kirkland MD (electronically signed) Emergency Medicine Provider [1] Past Medical History: Diagnosis Date Acid reflux Anxiety Arthritis Asperger syndrome Bipolar disorder (HCC) Chronic kidney disease stage 4 kidney failure Chronic pain Depression Edema of both legs GERD (gastroesophageal reflux disease) Hemorrhoids Hyperlipidemia Hypertension Hypothyroidism Iron (Fe) deficiency anemia Nephrogenic diabetes insipidus (HCC) Pain management Retention of urine, unspecified Sciatica SOB (shortness of breath) GRANT Type II or unspecified type diabetes mellitus without mention of complication, not stated as uncontrolled (HCC) Urinary incontinence nightly [2] Past Surgical History: Procedure Laterality Date 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 CHOLECYSTECTOMY COLON SURGERY c-diff COLONOSCOPY 03/28/2018 no polyps UPPER GASTROINTESTINAL ENDOSCOPY 03/28/2018 [3] Family History Problem Relation Name Age of Onset Hypertension Mother Cancer Father Colon cancer Maternal Grandmother Cancer Brother [4] Social History Socioeconomic History Marital status: Single Tobacco Use Smoking status: Former Smokeless tobacco: Never Vaping Use Vaping status: Never Used Substance and Sexual Activity Alcohol use: No Alcohol/week: 0.0 standard drinks of alcohol Drug use: No Social Drivers of Health Financial Resource Strain: Low Risk (10/03/2024) Overall Financial Resource Strain (CARDIA) Difficulty of Paying Living Expenses: Not hard at all Food Insecurity: No Food Insecurity (10/03/2024) Hunger Vital Sign Worried About Running Out of Food in the Last Year: Never true Ran Out of Food in the Last Year: Never true Transportation Needs: No Transportation Needs (10/03/2024) PRAPARE - Transportation Lack of Transportation (Medical): No Lack of Transportation (Non-Medical): No Physical Activity: Inactive (10/03/2024) Exercise Vital Sign Days of Exercise per Week: 0 days Minutes of Exercise per Session: 0 min Stress: No Stress Concern Present (10/03/2024) [employer] - Occupational Stress Questionnaire Feeling of Stress : Not at all Social Connections: Moderately Isolated (10/03/2024) Social Connection and Isolation Panel [NHANES] Frequency of Communication with Friends and Family: Three times a week Frequency of Social Gatherings with Friends and Family: Once a week Attends Cheondoism Services: 1 to 4 times per year Active Member of Clubs or Organizations: No Attends Club or Organization Meetings: Never Marital Status: Never Intimate Partner Violence: Not At Risk (10/03/2024) Humiliation, Afraid, Rape, and Kick questionnaire Fear of Current or Ex-Partner: No Emotionally Abused: No Physically Abused: No Sexually Abused: No Housing Stability: Low Risk (10/03/2024) Housing Stability Vital Sign Unable to Pay for Housing in the Last Year: No Number of Times Moved in the Last Year: 0 Homeless in the Last Year: No Arslan Kirkland MD 12/28/24 0559 [facility] 12-25-2024 Emergency department Note Patient up to BSC with rollator to void. [facility] 12-25-2024 Emergency department Note Patient up to BSC with rollator to void. Patient ambulated in [place] with rollator. Physician aware. Patient requesting to go back home by squad. BSC provided to patient for bowel movement. Repositioned patient This nurse to room. Patient seen sleeping in bed. Patient states she is unable to give a urine at this time. Bed gale removed. Physician informed. Patient repositioned and placed on bed gale. EMERGENCY DEPARTMENT ENCOUNTER Pt Name: Jessy Mckeon Birthdate 1965 Date of evaluation: 12/25/2024 CHIEF COMPLAINT Chief Complaint Patient presents with Groin Pain HISTORY OF PRESENT ILLNESS HPI Jessy Mckeon is a 59 y.o. female who presents to the emergency department reporting genital pain painful urination. Groin pain bilaterally. No fever. No recent injury. REVIEW OF SYSTEMS Review of Systems Problem List[1] CURRENT MEDICATIONS Discharge Medication List as of 12/25/2024 2:34 PM CONTINUE these medications which have NOT CHANGED Details acetaminophen (Tylenol) 325 MG tablet Take by mouth., Historical Med bisacodyl (Dulcolax) 10 MG suppository Insert into the rectum., Historical Med buprenorphine (Butrans) 20 MCG/HR Place 1 patch on the skin., Historical Med clonazePAM (KlonoPIN) 0.5 MG tablet Take 1 tablet (0.5 mg) by mouth 2 times daily as needed for anxiety., Starting Tue09/14/2024, Until Tue11/13/2024 at 2359, Normal divalproex (Depakote ER) 250 MG 24 hr tablet Take 1 tablet (250 mg) by mouth in the morning and 1 tablet (250 mg) at noon and 1 tablet (250 mg) in the evening. Take with meals., Starting Tue01/10/2024, Normal DULoxetine (Cymbalta) [address] capsule Take 1 capsule (60 mg) by mouth daily. Do not crush or chew., Starting Tue06/18/2024, Normal epoetin molly-epbx (Retacrit) 09514 UNIT/ML injection Inject 10,000 Units under the skin., Historical Med ergocalciferol (Vitamin D-2) 1.25 MG (97539 UT) capsule Take 1.25 mg by mouth 1 (one) time per week., Historical Med furosemide (Lasix) 40 MG tablet Take 1 tablet (40 mg) by mouth daily., Starting 10/07/2024, Until Kayli 12/06/2024, Normal hydrALAZINE (Apresoline) 25 MG tablet Take 1 tablet (25 mg) by mouth 3 times daily., Starting 10/06/2024, Until Tue12/05/2024, Normal lamoTRIgine (LaMICtal) 150 MG tablet Take 1 tablet (150 mg) by mouth Nightly., Starting Tue12/14/2024, Normal levothyroxine (Synthroid, Levoxyl) 125 MCG tablet Take 1 tablet (125 mcg) by mouth daily. Do not start before August 06, 2024., Starting Tue08/06/2024, Historical Med MELATONIN PO Take by mouth., Historical Med metoprolol tartrate (Lopressor) 100 MG tablet Take 1 tablet (100 mg) by mouth 2 times daily., Starting Tue11/21/2023, Normal omeprazole (PriLOSEC) [address] capsule Take 1 capsule (40 mg) by mouth every morning (before breakfast). Do not crush or chew., Starting Tue09/19/2023, Normal polyethylene glycol, PEG, 3350 (Miralax) 17 g packet Take by mouth., Historical Med Polysaccharide Iron Complex (IFEREX 150 PO) Take by mouth. Daily [id number], Historical Med risperiDONE (RisperDAL) 3 MG tablet Take 1 tablet (3 mg) by mouth Nightly., Starting Tue12/14/2024, Normal rosuvastatin (Crestor) 10 MG tablet TAKE 1 TABLET BY MOUTH DAILY, Starting Tue11/11/2023, Normal traZODone (Desyrel) 100 MG tablet Take 2 tablets (200 mg) by mouth Nightly., Starting Tue06/18/2024, Normal tamsulosin (Flomax) 0.4 MG 24 hr capsule Take 1 capsule (0.4 mg) by mouth daily., Starting Tue02/06/2024, Normal ALLERGIES Benztropine, Diphenhydramine, Nsaids, Other, and Venlafaxine SOCIAL HISTORY Social History[2] PHYSICAL EXAM Vitals: 12/25/24 1021 12/25/24 1607 BP: 111/57 106/83 BP Location: Right arm Right arm Patient Position: Sitting Sitting Pulse: 69 81 Resp: 18 24 Temp: 36.5 C (97.7 F) TempSrc: Oral SpO2: 100% 100% Weight: 136 kg (300 lb) Height: 1.6 m (5' 3") Physical Exam Vitals and nursing note reviewed. Eyes: Extraocular Movements: Extraocular movements intact. Conjunctiva/sclera: Conjunctivae normal. Pupils: Pupils are equal, round, and reactive to light. Cardiovascular: Pulses: Dorsalis pedis pulses are detected w/ Doppler on the right side and detected w/ Doppler on the left side. Posterior tibial pulses are 2+ on the right side and 2+ on the left side. Musculoskeletal: Right hip: Decreased range of motion (reporting pain cannot perform). Left hip: Decreased range of motion (reporint pain cannot perform). Skin: General: Skin is moist. Coloration: Skin is not jaundiced. Findings: Erythema (groin intertrigenous region) present. Neurological: Mental Status: She is oriented to person, place, and time. She is lethargic. Cranial Nerves: Cranial nerves 2-12 are intact. Sensory: Sensation is intact. Comments: Strength is 5 out of 5 in bilateral upper extremities Psychiatric: Attention and Perception: She is inattentive. Mood and Affect: Affect is blunt. Speech: Speech is slurred. SCREENINGS Medical decision making DIAGNOSTIC RESULTS Procedures/EKG: Physician EKG interpretation can be found in [facility] if done Radiologist results reviewed: No orders to display LABS: Labs Reviewed COMPLETE URINALYSIS WITH REFLEX TO CULTURE - Abnormal Result Value Color, Urine Light Yellow Clarity, Urine Turbid (*) pH, Urine 6.5 Leukocytes, Urine 500 (*) Nitrite, Urine Negative Protein, Urine 50 (*) Glucose, Urine Normal Bilirubin, Urine Negative Ketones, Urine Negative Urobilinogen, Urine Normal Blood, Urine 0.1 (*) Volume, Urine 8-12 mL RBC, Urine 11-25 (*) WBC, Urine 26-50 (*) Squamous Epithelial, Urine 6-10 (*) Non-Squamous Epithalial Cells, Urine 0-2 (*) Bacteria, Urine Moderate (*) Amorphous Urates, Urine Few (*) SPECIFIC GRAVITY OF URINE (NUMERIC) <1.005 (*) Narrative: A specimen with <=10 WBC is not consistent with inflammation. This specimen will not reflex to a urine culture. This specimen has been reflexed to urine culture. POCT GLUCOSE METER UNSOLICITED RESULTS - Abnormal Glucose 127 (*) Narrative: [facility]formed by: [facility], [address] [place] [address] CLIA ID: [id number] URINE CULTURE POCT GLUCOSE METER RADIOLOGY : Medications ordered: Medications - No data to display ED Course as of 12/25/241927e December 25, [address] head wo IV contrast (11/15/24 0747) Prior medical records were reviewed: nad [NM] 1032 Valproic acid level, total (11/15/24 1239) Prior medical records were reviewed: normal [NM] 1032 Ammonia (11/15/24 0820) Prior medical records were reviewed: normal [NM] 1045 Transthoracic echocardiogram (TTE) complete with contrast, bubble, strain, and 3D PRN (10/04/24 1430)(!) Prior medical records were reviewed: ef 55% [NM] 1045 Vascular US lower extremity venous duplex bilateral (10/03/24 1021) Prior medical records were reviewed: no dvt [NM] 1045 Vascular US lower extremity venous duplex bilateral (08/03/24 1404) Prior medical records were reviewed: no dvt [NM] ED Course User Index [NM] Jess Patton MD Diagnoses as of 12/25/241927 Candidal intertrigo Acute cystitis with hematuria Difficulty demonstrating health literacy Medication side effects present, subsequent encounter * No order type specified * Our workup consisted of ordering/reviewing: Orders Placed This Encounter Procedures Urine culture Urinalysis complete with reflex to Culture POCT glucose meter MDM: 59 y.o. presented with with groin pain, altered mental status. The differential diagnosis considered: Jah intertrigo, UTI, medication side effect,. Patient with lethargy likely secondary to numerous sedatives. Patient's care was impacted by comorbidity of schizoaffective disorder, requiring her to be on psychotropic medication likely contributing to her lethargy. Patient's care was significantly impacted by social determinants of health including Poor Health Literacy extensive time spent counseling to improve outcomes. Consideration for escalation of care with: meds morphine iv , however, she is sedated hence not ordered . 1430 On repeat examination patient is alert oriented x 3, cranial nerves II to XII intact, motor strength is 5 out of 5, sensation is intact. Diagnostic tests considered but not performed: CT head. No focal neurologic deficits. Her groin pain is from Jah intertrigo. She also has a UTI likely causing genital pain. REVAL: CRITICAL CARE TIME PROCEDURES: Procedures FINAL IMPRESSION 1. Candidal intertrigo 2. Acute cystitis with hematuria 3. Difficulty demonstrating health literacy 4. Medication side effects present, subsequent encounter DISPOSITION/PLAN DISPOSITION Discharge 12/25/2024 02:25:28 PM PATIENT REFERRED TO: Edith Pierce MD [address] [place] [address] [address] [facility] [id number] In 5 days I prescribed: Discharge Medication List as of 12/25/2024 2:34 PM START taking these medications Details amoxicillin (Amoxil) 500 MG capsule Take 2 capsules (1,000 mg) by mouth every 12 hours for 10 days., Starting Tue12/25/2024, Until Tue01/04/2025, Print nystatin (Mycostatin) 179976 UNIT/GM powder Apply topically 2 times daily. Apply to groin, Starting Tue12/25/2024, Print (Comment: this report has been produced using speech recognition software and may contain errors related to that system including errors in grammar, punctuation, and spelling, as well as words and phrases that may be inappropriate) Jess Patton MD (electronically signed) [1] Patient Active Problem List Diagnosis Urge incontinence of urine Dyspnea Anxiety Schizoaffective disorder (CMS/HCC) ([facility]) Chest pain Iron (Fe) deficiency anemia GERD (gastroesophageal reflux disease) Depression Suicidal ideations Acute gastric ulcer without hemorrhage or perforation Hypothyroidism Urinary incontinence Diverticulosis of large intestine without diverticulitis Chronic antral gastritis First degree hemorrhoids Nocturia Rotator cuff strain Osteoarthritis of patellofemoral joint Urge incontinence Urinary retention Localized edema Morbid obesity with BMI of 45.0-49.9, adult ([facility]) Hypomagnesemia JOSE A (acute kidney injury) ([facility]) Chronic bilateral low back pain with bilateral sciatica Primary hypothyroidism Psychogenic polydipsia Pneumonia Hyponatremia Hypertension Bipolar disorder (HCC) Lung infiltrate on CT Chronic schizoaffective disorder (HCC) Urinary tract infection Urinary tract infection without hematuria, site unspecified Chronic renal disease, stage IV (HCC) Chronic kidney disease, stage 3b (HCC) Acute cystitis without hematuria Fluid overload Hypervolemia, unspecified hypervolemia type Lower extremity edema [2] Social History Tobacco Use Smoking status: Former Smokeless tobacco: Never Vaping Use Vaping status: Never Used Substance Use Topics Alcohol use: No Alcohol/week: 0.0 standard drinks of alcohol Drug use: No Jess Patton MD 12/25/241927 documented in this encounter [facility] 12-25-2024 Telephone encounter Note Name of caller: Pat Contact phone number: [phone] Relationship to Patient: [facility] Provider: Stan Practice: [facility] Chief Complaint/Reason for Call: Pat calling to let provider know, Patient missed visit today due to going to ED for mental health status change. Best time of day caller can be reached: N/A Patient advised that office/PCP has 24-48 business hours to return their call: N/A [facility] 12-25-2024 Miscellaneous Notes Name of caller: Pat Contact phone number: [phone] Relationship to Patient: [facility] Provider: Stan Practice: Danny Chief Complaint/Reason for Call: Pat calling to let provider know, Patient missed visit today due to going to ED for mental health status change. Best time of day caller can be reached: N/A Patient advised that office/PCP has 24-48 business hours to return their call: N/A documented in this encounter [facility] 12-25-2024 Emergency department Note Patient ambulated in [place] with rollator. Physician aware. Patient requesting to go back home by squad. [facility] 12-25-2024 Emergency department Note BSC provided to patient for bowel movement. [facility] 12-25-2024 Emergency department Note Repositioned patient [facility] 12-25-2024 Emergency department Note This nurse to room. Patient seen sleeping in bed. Patient states she is unable to give a urine at this time. Bed gale removed. Physician informed. [facility] 12-25-2024 Emergency department Note Patient repositioned and placed on bed gale. [facility] 12-25-2024 Physician Emergency department Note EMERGENCY DEPARTMENT ENCOUNTER Pt Name: Jessy Mckeon Birthdate 1965 Date of evaluation: 12/25/2024 CHIEF COMPLAINT Chief Complaint Patient presents with Groin Pain HISTORY OF PRESENT ILLNESS HPI Jessy Mckeon is a 59 y.o. female who presents to the emergency department reporting genital pain painful urination. Groin pain bilaterally. No fever. No recent injury. REVIEW OF SYSTEMS Review of Systems Problem List[1] CURRENT MEDICATIONS Discharge Medication List as of 12/25/2024 2:34 PM CONTINUE these medications which have NOT CHANGED Details acetaminophen (Tylenol) 325 MG tablet Take by mouth., Historical Med bisacodyl (Dulcolax) 10 MG suppository Insert into the rectum., Historical Med buprenorphine (Butrans) 20 MCG/HR Place 1 patch on the skin., Historical Med clonazePAM (KlonoPIN) 0.5 MG tablet Take 1 tablet (0.5 mg) by mouth 2 times daily as needed for anxiety., Starting Tue09/14/2024, Until Tue11/13/2024 at 2359, Normal divalproex (Depakote ER) 250 MG 24 hr tablet Take 1 tablet (250 mg) by mouth in the morning and 1 tablet (250 mg) at noon and 1 tablet (250 mg) in the evening. Take with meals., Starting Tue01/10/2024, Normal DULoxetine (Cymbalta) [address] capsule Take 1 capsule (60 mg) by mouth daily. Do not crush or chew., Starting Tue06/18/2024, Normal epoetin molly-epbx (Retacrit) 50765 UNIT/ML injection Inject 10,000 Units under the skin., Historical Med ergocalciferol (Vitamin D-2) 1.25 MG (58377 UT) capsule Take 1.25 mg by mouth 1 (one) time per week., Historical Med furosemide (Lasix) 40 MG tablet Take 1 tablet (40 mg) by mouth daily., Starting 10/07/2024, Until Kayli 12/06/2024, Normal hydrALAZINE (Apresoline) 25 MG tablet Take 1 tablet (25 mg) by mouth 3 times daily., Starting 10/06/2024, Until Tue12/05/2024, Normal lamoTRIgine (LaMICtal) 150 MG tablet Take 1 tablet (150 mg) by mouth Nightly., Starting Tue12/14/2024, Normal levothyroxine (Synthroid, Levoxyl) 125 MCG tablet Take 1 tablet (125 mcg) by mouth daily. Do not start before August 06, 2024., Starting Tue08/06/2024, Historical Med MELATONIN PO Take by mouth., Historical Med metoprolol tartrate (Lopressor) 100 MG tablet Take 1 tablet (100 mg) by mouth 2 times daily., Starting Tue11/21/2023, Normal omeprazole (PriLOSEC) [address] capsule Take 1 capsule (40 mg) by mouth every morning (before breakfast). Do not crush or chew., Starting Tue09/19/2023, Normal polyethylene glycol, PEG, 3350 (Miralax) 17 g packet Take by mouth., Historical Med Polysaccharide Iron Complex (IFEREX 150 PO) Take by mouth. Daily [id number], Historical Med risperiDONE (RisperDAL) 3 MG tablet Take 1 tablet (3 mg) by mouth Nightly., Starting Tue12/14/2024, Normal rosuvastatin (Crestor) 10 MG tablet TAKE 1 TABLET BY MOUTH DAILY, Starting Tue11/11/2023, Normal traZODone (Desyrel) 100 MG tablet Take 2 tablets (200 mg) by mouth Nightly., Starting Tue06/18/2024, Normal tamsulosin (Flomax) 0.4 MG 24 hr capsule Take 1 capsule (0.4 mg) by mouth daily., Starting Tue02/06/2024, Normal ALLERGIES Benztropine, Diphenhydramine, Nsaids, Other, and Venlafaxine SOCIAL HISTORY Social History[2] PHYSICAL EXAM Vitals: 12/25/24 1021 12/25/24 1607 BP: 111/57 106/83 BP Location: Right arm Right arm Patient Position: Sitting Sitting Pulse: 69 81 Resp: 18 24 Temp: 36.5 C (97.7 F) TempSrc: Oral SpO2: 100% 100% Weight: 136 kg (300 lb) Height: 1.6 m (5' 3") Physical Exam Vitals and nursing note reviewed. Eyes: Extraocular Movements: Extraocular movements intact. Conjunctiva/sclera: Conjunctivae normal. Pupils: Pupils are equal, round, and reactive to light. Cardiovascular: Pulses: Dorsalis pedis pulses are detected w/ Doppler on the right side and detected w/ Doppler on the left side. Posterior tibial pulses are 2+ on the right side and 2+ on the left side. Musculoskeletal: Right hip: Decreased range of motion (reporting pain cannot perform). Left hip: Decreased range of motion (reporint pain cannot perform). Skin: General: Skin is moist. Coloration: Skin is not jaundiced. Findings: Erythema (groin intertrigenous region) present. Neurological: Mental Status: She is oriented to person, place, and time. She is lethargic. Cranial Nerves: Cranial nerves 2-12 are intact. Sensory: Sensation is intact. Comments: Strength is 5 out of 5 in bilateral upper extremities Psychiatric: Attention and Perception: She is inattentive. Mood and Affect: Affect is blunt. Speech: Speech is slurred. SCREENINGS Medical decision making DIAGNOSTIC RESULTS Procedures/EKG: Physician EKG interpretation can be found in [facility] if done Radiologist results reviewed: No orders to display LABS: Labs Reviewed COMPLETE URINALYSIS WITH REFLEX TO CULTURE - Abnormal Result Value Color, Urine Light Yellow Clarity, Urine Turbid (*) pH, Urine 6.5 Leukocytes, Urine 500 (*) Nitrite, Urine Negative Protein, Urine 50 (*) Glucose, Urine Normal Bilirubin, Urine Negative Ketones, Urine Negative Urobilinogen, Urine Normal Blood, Urine 0.1 (*) Volume, Urine 8-12 mL RBC, Urine 11-25 (*) WBC, Urine 26-50 (*) Squamous Epithelial, Urine 6-10 (*) Non-Squamous Epithalial Cells, Urine 0-2 (*) Bacteria, Urine Moderate (*) Amorphous Urates, Urine Few (*) SPECIFIC GRAVITY OF URINE (NUMERIC) <1.005 (*) Narrative: A specimen with <=10 WBC is not consistent with inflammation. This specimen will not reflex to a urine culture. This specimen has been reflexed to urine culture. POCT GLUCOSE METER UNSOLICITED RESULTS - Abnormal Glucose 127 (*) Narrative: Performed by: [facility], [address] [place] [address] CLIA ID: [id number] URINE CULTURE POCT GLUCOSE METER RADIOLOGY : Medications ordered: Medications - No data to display ED Course as of 12/25/241927December 25, [address] head wo IV contrast (11/15/24 0747) Prior medical records were reviewed: nad [NM] 1032 Valproic acid level, total (11/15/24 1239) Prior medical records were reviewed: normal [NM] 1032 Ammonia (11/15/24 0820) Prior medical records were reviewed: normal [NM] 1045 Transthoracic echocardiogram (TTE) complete with contrast, bubble, strain, and 3D PRN (10/04/24 1430)(!) Prior medical records were reviewed: ef 55% [NM] 1045 Vascular US lower extremity venous duplex bilateral (10/03/24 1021) Prior medical records were reviewed: no dvt [NM] 1045 Vascular US lower extremity venous duplex bilateral (08/03/24 1404) Prior medical records were reviewed: no dvt [NM] ED Course User Index [NM] Jess Patton MD Diagnoses as of 12/25/24 1928 Candidal intertrigo Acute cystitis with hematuria Difficulty demonstrating health literacy Medication side effects present, subsequent encounter * No order type specified * Our workup consisted of ordering/reviewing: Orders Placed This Encounter Procedures Urine culture Urinalysis complete with reflex to Culture POCT glucose meter MDM: 59 y.o. presented with with groin pain, altered mental status. The differential diagnosis considered: Jah intertrigo, UTI, medication side effect,. Patient with lethargy likely secondary to numerous sedatives. Patient's care was impacted by comorbidity of schizoaffective disorder, requiring her to be on psychotropic medication likely contributing to her lethargy. Patient's care was significantly impacted by social determinants of health including Poor Health Literacy extensive time spent counseling to improve outcomes. Consideration for escalation of care with: meds morphine iv , however, she is sedated hence not ordered . 1430 On repeat examination patient is alert oriented x 3, cranial nerves II to XII intact, motor strength is 5 out of 5, sensation is intact. Diagnostic tests considered but not performed: CT head. No focal neurologic deficits. Her groin pain is from Jah intertrigo. She also has a UTI likely causing genital pain. REVAL: CRITICAL CARE TIME PROCEDURES: Procedures FINAL IMPRESSION 1. Candidal intertrigo 2. Acute cystitis with hematuria 3. Difficulty demonstrating health literacy 4. Medication side effects present, subsequent encounter DISPOSITION/PLAN DISPOSITION Discharge 12/25/2024 02:25:28 PM PATIENT REFERRED TO: Edith Pierce MD [address] [place] [address] [address] [facility] [address] In 5 days I prescribed: Discharge Medication List as of 12/25/2024 2:34 PM START taking these medications Details amoxicillin (Amoxil) 500 MG capsule Take 2 capsules (1,000 mg) by mouth every 12 hours for 10 days., Starting Tue12/25/2024, Until Tue01/04/2025, Print nystatin (Mycostatin) 114164 UNIT/GM powder Apply topically 2 times daily. Apply to groin, Starting Tue12/25/2024, Print (Comment: this report has been produced using speech recognition software and may contain errors related to that system including errors in grammar, punctuation, and spelling, as well as words and phrases that may be inappropriate) Jess Patton MD (electronically signed) [1] Patient Active Problem List Diagnosis Urge incontinence of urine Dyspnea Anxiety Schizoaffective disorder (CMS/HCC) (HCC) Chest pain Iron (Fe) deficiency anemia GERD (gastroesophageal reflux disease) Depression Suicidal ideations Acute gastric ulcer without hemorrhage or perforation Hypothyroidism Urinary incontinence Diverticulosis of large intestine without diverticulitis Chronic antral gastritis First degree hemorrhoids Nocturia Rotator cuff strain Osteoarthritis of patellofemoral joint Urge incontinence Urinary retention Localized edema Morbid obesity with BMI of 45.0-49.9, adult (HCC) Hypomagnesemia JOSE A (acute kidney injury) (HCC) Chronic bilateral low back pain with bilateral sciatica Primary hypothyroidism Psychogenic polydipsia Pneumonia Hyponatremia Hypertension Bipolar disorder (HCC) Lung infiltrate on CT Chronic schizoaffective disorder (HCC) Urinary tract infection Urinary tract infection without hematuria, site unspecified Chronic renal disease, stage IV (HCC) Chronic kidney disease, stage 3b (HCC) Acute cystitis without hematuria Fluid overload Hypervolemia, unspecified hypervolemia type Lower extremity edema [2] Social History Tobacco Use Smoking status: Former Smokeless tobacco: Never Vaping Use Vaping status: Never Used Substance Use Topics Alcohol use: No Alcohol/week: 0.0 standard drinks of alcohol Drug use: No Jess Patton MD 12/25/241927 [facility] [employer] 12-12-2024 Telephone encounter Note Attempted to call patient to schedule appointment. VM cannot accept any more messages - called to schedule Hospital follow up [facility] [employer] 12-12-2024 Miscellaneous Notes Attempted to call patient to schedule appointment. [facility] cannot accept any more messages - called to schedule Hospital follow up Notified home health of verbal order. Spoke with Dr. Pierce, she said okay for verbal order to be given for Triad cream. Apply twice daily, to affected area or per their recommendation. Nurse said yes, okay for a verbal order for the Triad Cream, I will call her back to let her know okay if you are agreeable Is This is something they can take a verbal order for. Do they need it sent to her pharmacy? Also this patient needs to come in for an appointment. They were hospitalized on 11 15 but I have not had a follow-up appointment with them since. I would like an appointment. Missed an appointment on 12/10 for a Pap. But this would be a hospital follow-up. We can reschedule the Pap at a later time. 40 minutes hospital/ er followup Name of caller: Pat Contact phone number: [phone] Relationship to Patient: [facility] Nurse Provider: Stan Practice: [facility] Chief Complaint/Reason for Call: Pat asking for a prescription for Triad Cream. Patient has a few spots that are red in color but are not open yet. Please Advise. Best time of day caller can be reached: Any Patient advised that office/PCP has 24-48 business hours to return their call: Yes documented in this encounter [facility] [employer] 12-12-2024 Telephone encounter Note Notified home health of verbal order. [facility] 12-12-2024 Telephone encounter Note Spoke with Dr. Pierce, she said okay for verbal order to be given for Triad cream. Apply twice daily, to affected area or per their recommendation. [facility] 12-12-2024 Telephone encounter Note Nurse said yes, okay for a verbal order for the Triad Cream, I will call her back to let her know okay if you are agreeable [facility] 12-12-2024 Telephone encounter Note Is This is something they can take a verbal order for. Do they need it sent to her pharmacy? Also this patient needs to come in for an appointment. They were hospitalized on 11 15 but I have not had a follow-up appointment with them since. I would like an appointment. Missed an appointment on 12/10 for a Pap. But this would be a hospital follow-up. We can reschedule the Pap at a later time. 40 minutes hospital/ er followup [facility] 12-12-2024 Telephone encounter Note Name of caller: Pat Contact phone number: [phone] Relationship to Patient: [facility] Nurse Provider: Stan Practice: [facility] Chief Complaint/Reason for Call: Pat asking for a prescription for Triad Cream. Patient has a few spots that are red in color but are not open yet. Please Advise. Best time of day caller can be reached: Any Patient advised that office/PCP has 24-48 business hours to return their call: Yes [facility] 12-05-2024 Note Ok for wound care evaluation. [facility] 11-20-2024 Telephone encounter Note Dmitriy howell [facility] 11-20-2024 Telephone encounter Note Dmitriy aware [facility] 11-20-2024 Miscellaneous Notes Dmitriy aware Number listed is OOS That is fine for verbal order. Patient needs a face to face with me if needed ok to do virutallu Name of caller: Dmitriy Contact phone number: [phone] Relationship to Patient: [facility] Provider: Dr. Pierce Practice: [facility] Chief Complaint/Reason for Call: Dmitriy is requesting a call back for verbal orders for patient's occupational therapy and states the plan of care is once a week for the next seven weeks for occupational therapy services. Please contact Dmitriy and advise. Best time of day caller can be reached: Any Patient advised that office/PCP has 24-48 business hours to return their call: Yes OV notes faxed and confirmation received Jeremi was notified yesterday, will fax OV notes Ok for verbal order Name of caller: Jeremi Contact phone number: [phone] Relationship to Patient: [facility] Provider: Dr. Pierce Practice: [facility] Chief Complaint/Reason for Call: Jeremi called in requesting if provider will follow for home care for patient. States if so they will need orders for PT, OT, and last office visit notes. Jeremi requesting call back for verbal confirmation. . Please Advise Best time of day caller can be reached: any Patient advised that office/PCP has 24-48 business hours to return their call: No documented in this encounter [facility] 11-20-2024 Miscellaneous Notes Dmitriy aware Ok for verbal order see other TE Name of caller: Kathy Contact phone number: [phone] Relationship to Patient: [facility] Provider: Dr Pierce Practice: [facility] Chief Complaint/Reason for Call: home health is requesting order for PT 1x week for 9 weeks. Please call with a verbal Best time of day caller can be reached: AM Patient advised that office/PCP has 24-48 business hours to return their call: Yes documented in this encounter [facility] 11-20-2024 Telephone encounter Note Number listed is OOS [facility] 11-19-2024 Telephone encounter Note Ok for verbal order see other TE [facility] 11-19-2024 Telephone encounter Note That is fine for verbal order. Patient needs a face to face with me if needed ok to do virutallu [facility] 11-19-2024 Miscellaneous Notes That is fine for verbal order. Patient needs a face to face with me if needed ok to do virutallu Name of caller: Dmitriy Contact phone number: [phone] Relationship to Patient: [facility] Provider: Dr. Pierce Practice: [facility] Chief Complaint/Reason for Call: Dmitriy is requesting a call back for verbal orders for patient's occupational therapy and states the plan of care is once a week for the next seven weeks for occupational therapy services. Please contact Dmitriy and advise. Best time of day caller can be reached: Any Patient advised that office/PCP has 24-48 business hours to return their call: Yes OV notes faxed and confirmation received Jeremi was notified yesterday, will fax OV notes Ok for verbal order Name of caller: Jeremi Contact phone number: [phone] Relationship to Patient: [facility] Provider: Dr. Pierce Practice: [facility] Chief Complaint/Reason for Call: Jeremi called in requesting if provider will follow for home care for patient. States if so they will need orders for PT, OT, and last office visit notes. Jeremi requesting call back for verbal confirmation. . Please Advise Best time of day caller can be reached: any Patient advised that office/PCP has 24-48 business hours to return their call: No documented in this encounter [facility] 11-15-2024 Emergency department Note Robert Sánchez to transport pt back to assisted living facility, set up via roundtrip. ETA 1100. [facility] 11-15-2024 Emergency department Note Robert Sánchez to transport pt back to assisted living facility, set up via roundtrip. ETA 1100. Urinary cath removed per verbal order from MD Pooja. EMERGENCY DEPARTMENT ENCOUNTER Pt Name: Jessy Mckeon Birthdate 1965 Date of evaluation: 11/15/2024 ED Provider: Arslan Kirkland MD CHIEF COMPLAINT Chief Complaint Patient presents with Fall Head Injury HISTORY OF PRESENT ILLNESS (Location/Symptom, Timing/Onset, Context/Setting, Quality, Duration, Modifying Factors, Severity) Note limiting factors. I wore appropriate PPE for the entirety of this encounter. HPI Jessy Mckeon is a 59 y.o. who presents to the emergency department after a fall hitting the back of her head, not on blood thinners, she says she got up to get out of the chair and felt lightheaded when she stood up fell backwards and hit her head. She says she is on oral Lasix but has chronic bilateral lower extremity edema. She denies any loss of consciousness, no blood thinners, no shortness of breath, no fevers Nursing Notes were reviewed. Limitations to history: None Outside historians: EMS REVIEW OF SYSTEMS Review of Systems Pertinent positives and negatives as per HPI PAST MEDICAL HISTORY Past Medical History: Diagnosis Date Acid reflux Anxiety Arthritis Asperger syndrome Bipolar disorder (HCC) Chronic kidney disease stage 4 kidney failure Chronic pain Depression Edema of both legs GERD (gastroesophageal reflux disease) Hemorrhoids Hyperlipidemia Hypertension Hypothyroidism Iron (Fe) deficiency anemia Nephrogenic diabetes insipidus (HCC) Pain management Retention of urine, unspecified Sciatica SOB (shortness of breath) GRANT Type II or unspecified type diabetes mellitus without mention of complication, not stated as uncontrolled (HCC) Urinary incontinence nightly SURGICAL HISTORY Past Surgical History: Procedure Laterality Date 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 BISACODYL (DULCOLAX) 10 MG SUPPOSITORY Insert into the rectum. BUPRENORPHINE (BUTRANS) 20 MCG/HR Place 1 patch on the skin. CLONAZEPAM (KLONOPIN) 0.5 MG TABLET Take 1 tablet (0.5 mg) by mouth 2 times daily as needed for anxiety. DIVALPROEX (DEPAKOTE ER) 250 MG 24 HR TABLET Take 1 tablet (250 mg) by mouth in the morning and 1 tablet (250 mg) at noon and 1 tablet (250 mg) in the evening. Take with meals. DULOXETINE (CYMBALTA) [address] CAPSULE Take 1 capsule (60 mg) by mouth daily. Do not crush or chew. EPOETIN MOLLY-EPBX (RETACRIT) 16072 UNIT/ML INJECTION Inject 10,000 Units under the skin. ERGOCALCIFEROL (VITAMIN D-2) 1.25 MG (54288 UT) CAPSULE Take 1.25 mg by mouth 1 (one) time per week. FUROSEMIDE (LASIX) 40 MG TABLET Take 1 tablet (40 mg) by mouth daily. HYDRALAZINE (APRESOLINE) 25 MG TABLET Take 1 tablet (25 mg) by mouth 3 times daily. LAMOTRIGINE (LAMICTAL) 200 MG TABLET Take 1 tablet (200 mg) by mouth Nightly. LEVOTHYROXINE (SYNTHROID, LEVOXYL) 125 MCG TABLET Take 1 tablet (125 mcg) by mouth daily. Do not start before August 06, 2024. MELATONIN PO Take by mouth. METOPROLOL TARTRATE (LOPRESSOR) 100 MG TABLET Take 1 tablet (100 mg) by mouth 2 times daily. OMEPRAZOLE (PRILOSEC) [address] CAPSULE Take 1 capsule (40 mg) by mouth every morning (before breakfast). Do not crush or chew. POLYETHYLENE GLYCOL, PEG, 3350 (MIRALAX) 17 G PACKET Take by mouth. POLYSACCHARIDE IRON COMPLEX (IFEREX 150 PO) Take by mouth. Daily Uwg-Rhk-Raqmhd RISPERIDONE (RISPERDAL) 3 MG TABLET Take 2 tablets (6 mg) by mouth Nightly. ROSUVASTATIN (CRESTOR) 10 MG TABLET TAKE 1 TABLET BY MOUTH DAILY TAMSULOSIN (FLOMAX) 0.4 MG 24 HR CAPSULE Take 1 capsule (0.4 mg) by mouth daily. TRAZODONE (DESYREL) 100 MG TABLET Take 2 tablets (200 mg) by mouth Nightly. ALLERGIES Benztropine, Diphenhydramine, Nsaids, Other, and Venlafaxine FAMILY HISTORY Family History Problem Relation Name Age of Onset Hypertension Mother Cancer Father Colon cancer Maternal Grandmother Cancer Brother SOCIAL HISTORY Social History Socioeconomic History Marital status: Single Tobacco Use Smoking status: Former Smokeless tobacco: Never Vaping Use Vaping status: Never Used Substance and Sexual Activity Alcohol use: No Alcohol/week: 0.0 standard drinks of alcohol Drug use: No Social Drivers of Health Financial Resource Strain: Low Risk (10/03/2024) Overall Financial Resource Strain (CARDIA) Difficulty of Paying Living Expenses: Not hard at all Food Insecurity: No Food Insecurity (10/03/2024) Hunger Vital Sign Worried About Running Out of Food in the Last Year: Never true Ran Out of Food in the Last Year: Never true Transportation Needs: No Transportation Needs (10/03/2024) PRAPARE - Transportation Lack of Transportation (Medical): No Lack of Transportation (Non-Medical): No Physical Activity: Inactive (10/03/2024) Exercise Vital Sign Days of Exercise per Week: 0 days Minutes of Exercise per Session: 0 min Stress: No Stress Concern Present (10/03/2024) [employer] - Occupational Stress Questionnaire Feeling of Stress : Not at all Social Connections: Moderately Isolated (10/03/2024) Social Connection and Isolation Panel [NHANES] Frequency of Communication with Friends and Family: Three times a week Frequency of Social Gatherings with Friends and Family: Once a week Attends Cheondoism Services: 1 to 4 times per year Active Member of Clubs or Organizations: No Attends Club or Organization Meetings: Never Marital Status: Never Intimate Partner Violence: Not At Risk (10/03/2024) Humiliation, Afraid, Rape, and Kick questionnaire Fear of Current or Ex-Partner: No Emotionally Abused: No Physically Abused: No Sexually Abused: No Housing Stability: Low Risk (10/03/2024) Housing Stability Vital Sign Unable to Pay for Housing in the Last Year: No Number of Times Moved in the Last Year: 0 Homeless in the Last Year: No PHYSICAL EXAM ED Triage Vitals [11/15/24 0607] Temp Heart Rate Resp BP 36.9 C (98.5 F) 64 16 122/65 SpO2 Temp Source Heart Rate Source Patient Position 100 % Oral -- Sitting BP Location FiO2 (%) Right arm -- Physical Exam 4+ pitting edema to bilateral lower extremities, posterior scalp cephalhematoma without any bleeding DIAGNOSTIC RESULTS RADIOLOGY (Per Emergency Physician): Interpretation per the Radiologist below, if available at the time of this note: CT head wo IV contrast (Results Pending) XR chest 1 view (Results Pending) XR pelvis 1 or 2 views (Results Pending) LABS: Labs Reviewed CBC WITH AUTO DIFFERENTIAL - Abnormal Result Value Auto WBC 6.6 RBC 2.48 (*) Hemoglobin 8.0 (*) Hematocrit 24.1 (*) MCV 97.2 MCH 32.3 MCHC 33.2 RDW 13.2 Platelets 185 MPV 9.1 nRBC 0.0 Neutrophils Relative 53.9 Lymphocytes Relative 26.7 Monocytes Relative 14.0 (*) Eosinophils Relative 4.4 Basophils Relative 0.5 Immature Grans % 0.5 Neutrophils Absolute 3.5 Lymphocytes Absolute 1.8 Monocytes Absolute 0.9 Eosinophils Absolute 0.3 Basophils Absolute 0.0 Immature Grans Absolute 0.0 NT PRO BNP COMPREHENSIVE METABOLIC PANEL All other labs were within normal range or not returned as of this dictation. EMERGENCY DEPARTMENT COURSE and DIFFERENTIAL DIAGNOSIS/MDM: Vitals: Vitals: 11/15/24 0607 BP: 122/65 BP Location: Right arm Patient Position: Sitting Pulse: 64 Resp: 16 Temp: 36.9 C (98.5 F) TempSrc: Oral SpO2: 100% Weight: 136 kg (300 lb) Height: 1.6 m (5' 3") Medications furosemide (Lasix) injection 40 mg (40 mg IntraVENous Given 11/15/24650) SCREENINGS Rowley Coma Scale Best Eye Response: Spontaneous Best Verbal Response: Oriented Best Motor Response: Follows commands Rowley Coma Scale Score: 15 MDM elements: The patient presented with chief complaint of lightheadedness hitting the back of her head and chronic bilateral lower extremity edema. Was given IV Lasix here. The differential diagnosis associated with this patient's presentation includes lightheadedness, scalp hematoma, bilateral lower extremity edema, rule out intracranial hemorrhage, rule out CHF. Our workup consisted of ordering/reviewing: CT head, chest x-ray, pelvis x-ray, labs, IV Lasix. Signed out to Dr Patton PROCEDURES: Unless otherwise noted below, none Procedures CRITICAL CARE TIME None FINAL IMPRESSION Scalp hematoma, pedal edema DISPOSITION per Dr Patton PATIENT REFERRED TO: No follow-up provider specified. DISCHARGE MEDICATIONS: New Prescriptions No medications on file (Comment: Please note this report has been produced using speech recognition software and may contain errors related to that system including errors in grammar, punctuation, and spelling, as well as words and phrases that may be inappropriate. If there are any questions or concerns please feel free to contact the dictating provider for clarification.) Arslan Kirkland MD (electronically signed) Emergency Medicine Provider Arslan Kirkland MD 11/15/24655 Care for this patient was assumed from the previous provider @ 0700. I have reviewed the case and plan for the patient. Any pertinent finding or changes in the patient's condition are documented below. History of present illness: She became lightheaded and fell. At baseline she ambulates with a rollator. Complains of head pain. No neck pain. Denies of any pain anywhere else. Physical examination: Neurologic examination: Alert, oriented x 3, cranial nerves II to XII intact motor strength 5 out of 5 in bilateral upper extremities, motor strength is 2 out of 5 in bilateral lower extremities sensation is intact Mdm: Patient with chronic hyponatremia. Prior medical care record reviewed: Echocardiogram performed 2 months ago normal left ventricular ejection fraction normal right ventricular ejection fraction, no pericardial effusion. Prior medical record reviewed: Ultrasound duplex bilateral venous 2 months ago no DVT. Prior medical records reviewed: Ultrasound duplex venous bilateral no DVT 4 months ago. Some of the leg swelling might be from amlodipine. Possible Depakote contributing to the anemia Possible Cymbalta contributing to the hyponatremia She is on multiple sedative medications likely contributing to the fall Radiology: X-ray was independently interpreted by myself: Chest: No pneumothorax left base opacity atelectasis versus infiltrate versus technique based Radiology: X-ray was independently interpreted by myself: Pelvis: no fracture no subluxation, spine hardware present CT head interpreted by me: No intracranial hemorrhage no skull fracture Patient requested removal of Infante she reports that she is getting caught up in the Infante tubing and that is one of the reasons why she fell. Infante was removed. She passed voiding trial in the ER. Clinical impression: 1. Weakness 2. Head injury, initial encounter 3. Fall, initial encounter 4. Hypervolemia, unspecified hypervolemia type 5. Chronic kidney disease, unspecified CKD stage 6. Anemia due to chronic kidney disease, unspecified CKD stage 7. Medication side effect 8. Hyponatremia DISPOSITION Discharge 11/15/2024 08:35:42 AM Patient prescribed: Discharge Medication List as of 11/15/2024 8:37 AM Edith Pierce MD [address] [facility] [address] Call in 5 days Familia Jeronimo MD [address] [facility] [address] Call in 5 days Jess Patton MD 11/15/24 1102 Patient arrived via [place] squad from nursing facility. Patient states she got dizzy and fell, hitting the back of her head. Patient denies any LOC. No lacerations seen. Pain 8/10. documented in this encounter [facility] 11-15-2024 Emergency department Note Urinary cath removed per verbal order from MD Pooja. [facility] 11-15-2024 Hospital Discharge instructions Jess Patton MD - 11/15/2024 8:35 AM EDT Discontinue Depakote Discontinue Cymbalta The following attachments cannot be sent through Care Everywhere.Kidney Failure Discharge Instructions (Northern Irish)documented in this encounter [facility] 11-15-2024 Emergency department Triage note Patient arrived via [place] squad from nursing facility. Patient states she got dizzy and fell, hitting the back of her head. Patient denies any LOC. No lacerations seen. Pain 03/24. [facility] 11-15-2024 Physician Emergency department Note EMERGENCY DEPARTMENT ENCOUNTER Pt Name: Jessy Mckeon Birthdate 1965 Date of evaluation: 11/15/2024 ED Provider: Arslan Kirkland MD CHIEF COMPLAINT Chief Complaint Patient presents with Fall Head Injury HISTORY OF PRESENT ILLNESS (Location/Symptom, Timing/Onset, Context/Setting, Quality, Duration, Modifying Factors, Severity) Note limiting factors. I wore appropriate PPE for the entirety of this encounter. HPI Jessy Mckeon is a 59 y.o. who presents to the emergency department after a fall hitting the back of her head, not on blood thinners, she says she got up to get out of the chair and felt lightheaded when she stood up fell backwards and hit her head. She says she is on oral Lasix but has chronic bilateral lower extremity edema. She denies any loss of consciousness, no blood thinners, no shortness of breath, no fevers Nursing Notes were reviewed. Limitations to history: None Outside historians: EMS REVIEW OF SYSTEMS Review of Systems Pertinent positives and negatives as per HPI PAST MEDICAL HISTORY Past Medical History: Diagnosis Date Acid reflux Anxiety Arthritis Asperger syndrome Bipolar disorder (HCC) Chronic kidney disease stage 4 kidney failure Chronic pain Depression Edema of both legs GERD (gastroesophageal reflux disease) Hemorrhoids Hyperlipidemia Hypertension Hypothyroidism Iron (Fe) deficiency anemia Nephrogenic diabetes insipidus (HCC) Pain management Retention of urine, unspecified Sciatica SOB (shortness of breath) GRANT Type II or unspecified type diabetes mellitus without mention of complication, not stated as uncontrolled (HCC) Urinary incontinence nightly SURGICAL HISTORY Past Surgical History: Procedure Laterality Date 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 BISACODYL (DULCOLAX) 10 MG SUPPOSITORY Insert into the rectum. BUPRENORPHINE (BUTRANS) 20 MCG/HR Place 1 patch on the skin. CLONAZEPAM (KLONOPIN) 0.5 MG TABLET Take 1 tablet (0.5 mg) by mouth 2 times daily as needed for anxiety. DIVALPROEX (DEPAKOTE ER) 250 MG 24 HR TABLET Take 1 tablet (250 mg) by mouth in the morning and 1 tablet (250 mg) at noon and 1 tablet (250 mg) in the evening. Take with meals. DULOXETINE (CYMBALTA) [address] CAPSULE Take 1 capsule (60 mg) by mouth daily. Do not crush or chew. EPOETIN MOLLY-EPBX (RETACRIT) 65975 UNIT/ML INJECTION Inject 10,000 Units under the skin. ERGOCALCIFEROL (VITAMIN D-2) 1.25 MG (76793 UT) CAPSULE Take 1.25 mg by mouth 1 (one) time per week. FUROSEMIDE (LASIX) 40 MG TABLET Take 1 tablet (40 mg) by mouth daily. HYDRALAZINE (APRESOLINE) 25 MG TABLET Take 1 tablet (25 mg) by mouth 3 times daily. LAMOTRIGINE (LAMICTAL) 200 MG TABLET Take 1 tablet (200 mg) by mouth Nightly. LEVOTHYROXINE (SYNTHROID, LEVOXYL) 125 MCG TABLET Take 1 tablet (125 mcg) by mouth daily. Do not start before August 06, 2024. MELATONIN PO Take by mouth. METOPROLOL TARTRATE (LOPRESSOR) 100 MG TABLET Take 1 tablet (100 mg) by mouth 2 times daily. OMEPRAZOLE (PRILOSEC) [address] CAPSULE Take 1 capsule (40 mg) by mouth every morning (before breakfast). Do not crush or chew. POLYETHYLENE GLYCOL, PEG, 3350 (MIRALAX) 17 G PACKET Take by mouth. POLYSACCHARIDE IRON COMPLEX (IFEREX 150 PO) Take by mouth. Daily Dlh-Piz-Vrvfdn RISPERIDONE (RISPERDAL) 3 MG TABLET Take 2 tablets (6 mg) by mouth Nightly. ROSUVASTATIN (CRESTOR) 10 MG TABLET TAKE 1 TABLET BY MOUTH DAILY TAMSULOSIN (FLOMAX) 0.4 MG 24 HR CAPSULE Take 1 capsule (0.4 mg) by mouth daily. TRAZODONE (DESYREL) 100 MG TABLET Take 2 tablets (200 mg) by mouth Nightly. ALLERGIES Benztropine, Diphenhydramine, Nsaids, Other, and Venlafaxine FAMILY HISTORY Family History Problem Relation Name Age of Onset Hypertension Mother Cancer Father Colon cancer Maternal Grandmother Cancer Brother SOCIAL HISTORY Social History Socioeconomic History Marital status: Single Tobacco Use Smoking status: Former Smokeless tobacco: Never Vaping Use Vaping status: Never Used Substance and Sexual Activity Alcohol use: No Alcohol/week: 0.0 standard drinks of alcohol Drug use: No Social Drivers of Health Financial Resource Strain: Low Risk (10/03/2024) Overall Financial Resource Strain (CARDIA) Difficulty of Paying Living Expenses: Not hard at all Food Insecurity: No Food Insecurity (10/03/2024) Hunger Vital Sign Worried About Running Out of Food in the Last Year: Never true Ran Out of Food in the Last Year: Never true Transportation Needs: No Transportation Needs (10/03/2024) PRAPARE - Transportation Lack of Transportation (Medical): No Lack of Transportation (Non-Medical): No Physical Activity: Inactive (10/03/2024) Exercise Vital Sign Days of Exercise per Week: 0 days Minutes of Exercise per Session: 0 min Stress: No Stress Concern Present (10/03/2024) [employer] [place] - Occupational Stress Questionnaire Feeling of Stress : Not at all Social Connections: Moderately Isolated (10/03/2024) Social Connection and Isolation Panel [NHANES] Frequency of Communication with Friends and Family: Three times a week Frequency of Social Gatherings with Friends and Family: Once a week Attends Cheondoism Services: 1 to 4 times per year Active Member of Clubs or Organizations: No Attends Club or Organization Meetings: Never Marital Status: Never Intimate Partner Violence: Not At Risk (10/03/2024) Humiliation, Afraid, Rape, and Kick questionnaire Fear of Current or Ex-Partner: No Emotionally Abused: No Physically Abused: No Sexually Abused: No Housing Stability: Low Risk (10/03/2024) Housing Stability Vital Sign Unable to Pay for Housing in the Last Year: No Number of Times Moved in the Last Year: 0 Homeless in the Last Year: No PHYSICAL EXAM ED Triage Vitals [11/15/24 0607] Temp Heart Rate Resp BP 36.9 C (98.5 F) 64 16 122/65 SpO2 Temp Source Heart Rate Source Patient Position 100 % Oral -- Sitting BP Location FiO2 (%) Right arm -- Physical Exam 4+ pitting edema to bilateral lower extremities, posterior scalp cephalhematoma without any bleeding DIAGNOSTIC RESULTS RADIOLOGY (Per Emergency Physician): Interpretation per the Radiologist below, if available at the time of this note: CT head wo IV contrast (Results Pending) XR chest 1 view (Results Pending) XR pelvis 1 or 2 views (Results Pending) LABS: Labs Reviewed CBC WITH AUTO DIFFERENTIAL - Abnormal Result Value Auto WBC 6.6 RBC 2.48 (*) Hemoglobin 8.0 (*) Hematocrit 24.1 (*) MCV 97.2 MCH 32.3 MCHC 33.2 RDW 13.2 Platelets 185 MPV 9.1 nRBC 0.0 Neutrophils Relative 53.9 Lymphocytes Relative 26.7 Monocytes Relative 14.0 (*) Eosinophils Relative 4.4 Basophils Relative 0.5 Immature Grans % 0.5 Neutrophils Absolute 3.5 Lymphocytes Absolute 1.8 Monocytes Absolute 0.9 Eosinophils Absolute 0.3 Basophils Absolute 0.0 Immature Grans Absolute 0.0 NT PRO BNP COMPREHENSIVE METABOLIC PANEL All other labs were within normal range or not returned as of this dictation. EMERGENCY DEPARTMENT COURSE and DIFFERENTIAL DIAGNOSIS/MDM: Vitals: Vitals: 11/15/24 0607 BP: 122/65 BP Location: Right arm Patient Position: Sitting Pulse: 64 Resp: 16 Temp: 36.9 C (98.5 F) TempSrc: Oral SpO2: 100% Weight: 136 kg (300 lb) Height: 1.6 m (5' 3") Medications furosemide (Lasix) injection 40 mg (40 mg IntraVENous Given 11/15/24 06) SCREENINGS Rowley Coma Scale Best Eye Response: Spontaneous Best Verbal Response: Oriented Best Motor Response: Follows commands Rowley Coma Scale Score: 15 MDM elements: The patient presented with chief complaint of lightheadedness hitting the back of her head and chronic bilateral lower extremity edema. Was given IV Lasix here. The differential diagnosis associated with this patient's presentation includes lightheadedness, scalp hematoma, bilateral lower extremity edema, rule out intracranial hemorrhage, rule out CHF. Our workup consisted of ordering/reviewing: CT head, chest x-ray, pelvis x-ray, labs, IV Lasix. Signed out to Dr Patton PROCEDURES: Unless otherwise noted below, none Procedures CRITICAL CARE TIME None FINAL IMPRESSION Scalp hematoma, pedal edema DISPOSITION per Dr Patton PATIENT REFERRED TO: No follow-up provider specified. DISCHARGE MEDICATIONS: New Prescriptions No medications on file (Comment: Please note this report has been produced using speech recognition software and may contain errors related to that system including errors in grammar, punctuation, and spelling, as well as words and phrases that may be inappropriate. If there are any questions or concerns please feel free to contact the dictating provider for clarification.) Arslan Kirkland MD (electronically signed) Emergency Medicine Provider Arslan Kirkland MD 11/15/24655 [place] Phone: 11-15-2024 Physician Emergency department Note Care for this patient was assumed from the previous provider @ 0700. I have reviewed the case and plan for the patient. Any pertinent finding or changes in the patient's condition are documented below. History of present illness: She became lightheaded and fell. At baseline she ambulates with a rollator. Complains of head pain. No neck pain. Denies of any pain anywhere else. Physical examination: Neurologic examination: Alert, oriented x 3, cranial nerves II to XII intact motor strength 5 out of 5 in bilateral upper extremities, motor strength is 2 out of 5 in bilateral lower extremities sensation is intact Mdm: Patient with chronic hyponatremia. Prior medical care record reviewed: Echocardiogram performed 2 months ago normal left ventricular ejection fraction normal right ventricular ejection fraction, no pericardial effusion. Prior medical record reviewed: Ultrasound duplex bilateral venous 2 months ago no DVT. Prior medical records reviewed: Ultrasound duplex venous bilateral no DVT 4 months ago. Some of the leg swelling might be from amlodipine. Possible Depakote contributing to the anemia Possible Cymbalta contributing to the hyponatremia She is on multiple sedative medications likely contributing to the fall Radiology: X-ray was independently interpreted by myself: Chest: No pneumothorax left base opacity atelectasis versus infiltrate versus technique based Radiology: X-ray was independently interpreted by myself: Pelvis: no fracture no subluxation, spine hardware present CT head interpreted by me: No intracranial hemorrhage no skull fracture Patient requested removal of Infante she reports that she is getting caught up in the Infante tubing and that is one of the reasons why she fell. Infante was removed. She passed voiding trial in the ER. Clinical impression: 1. Weakness 2. Head injury, initial encounter 3. Fall, initial encounter 4. Hypervolemia, unspecified hypervolemia type 5. Chronic kidney disease, unspecified CKD stage 6. Anemia due to chronic kidney disease, unspecified CKD stage 7. Medication side effect 8. Hyponatremia DISPOSITION Discharge 11/15/2024 08:35:42 AM Patient prescribed: Discharge Medication List as of 11/15/2024 8:37 AM Edith Pierce MD [address] [facility] [address] Call in 5 days Familia Jeronimo MD [address] [facility] [id number] Call in 5 days Jess Patton MD 11/15/24 1102 [facility] 11-12-2024 Telephone encounter Note Name of caller: Dmitriy Contact phone number: [phone] Relationship to Patient: [facility] Provider: Dr. Pierce Practice: [facility] Chief Complaint/Reason for Call: Dmitriy is requesting a call back for verbal orders for patient's occupational therapy and states the plan of care is once a week for the next seven weeks for occupational therapy services. Please contact Dmitriy and tiffanie. Best time of day caller can be reached: Any Patient advised that office/PCP has 24-48 business hours to return their call: Yes [facility] 11-12-2024 Miscellaneous Notes Name of caller: Dmitriy Contact phone number: [phone] Relationship to Patient: [facility] Provider: Dr. Pierce Practice: [facility] Chief Complaint/Reason for Call: Dmitriy is requesting a call back for verbal orders for patient's occupational therapy and states the plan of care is once a week for the next seven weeks for occupational therapy services. Please contact Dmitriy and tiffanie. Best time of day caller can be reached: Any Patient advised that office/PCP has 24-48 business hours to return their call: Yes OV notes faxed and confirmation received Jeremi was notified yesterday, will fax OV notes Ok for verbal order Name of caller: Jeremi Contact phone number: [phone] Relationship to Patient: [facility] Provider: Dr. Pierce Practice: [facility] Chief Complaint/Reason for Call: Jeremi called in requesting if provider will follow for home care for patient. States if so they will need orders for PT, OT, and last office visit notes. Jeremi requesting call back for verbal confirmation. . Please Advise Best time of day caller can be reached: any Patient advised that office/PCP has 24-48 business hours to return their call: No documented in this encounter [facility] 11-09-2024 Telephone encounter Note Name of caller: Kathy Contact phone number: [phone] Relationship to Patient: [facility] Provider: Dr Pierce Practice: [facility] Chief Complaint/Reason for Call: [facility] is requesting order for PT 1x week for 9 weeks. Please call with a verbal Best time of day caller can be reached: AM Patient advised that office/PCP has 24-48 business hours to return their call: Yes [facility] 11-08-2024 Telephone encounter Note OV notes faxed and confirmation received [facility] 11-08-2024 Telephone encounter Note Jeremi was notified yesterday, will fax OV notes [facility] 11-07-2024 Telephone encounter Note Ok for verbal order [facility] 11-07-2024 Telephone encounter Note Name of caller: Jeremi Contact phone number: [phone] Relationship to Patient: [facility] Provider: Dr. Pierce Practice: [facility] Chief Complaint/Reason for Call: Jeremi called in requesting if provider will follow for home care for patient. States if so they will need orders for PT, OT, and last office visit notes. Jeremi requesting call back for verbal confirmation. . Please Advise Best time of day caller can be reached: any Patient advised that office/PCP has 24-48 business hours to return their call: No [facility] 11-03-2024 Emergency department Note Pt. Left ED via stretcher with EMS. Infante Catheter in place upon transfer as per provider instructions. [facility] 11-03-2024 Emergency department Note Pt. Left ED via stretcher with EMS. Infante Catheter in place upon transfer as per provider instructions. EMERGENCY DEPARTMENT ENCOUNTER Pt Name: Jessy Mckeon Birthdate 1965 Date of evaluation: 11/03/2024 ED Provider: Javad Lees DO CHIEF COMPLAINT Chief Complaint Patient presents with Fall HISTORY OF PRESENT ILLNESS (Location/Symptom, Timing/Onset, Context/Setting, Quality, Duration, Modifying Factors, Severity) Note limiting factors. I wore appropriate PPE for the entirety of this encounter. HPI Jessy Mckeon is a 59 y.o. who presents to the emergency department with chief complaint of fall. Nursing staff reported that the patient had an unwitnessed fall where she slid out of bed but immediately had her call light. Patient denies head injury or LOC. She is not anticoagulated. Endorses right hip pain without other acute injuries. States that she was half asleep and slipped out of her chair. Nursing Notes were reviewed. Limitations to history: None Outside historians: Caregiver REVIEW OF SYSTEMS Review of Systems Pertinent positives and negatives as per HPI. PAST MEDICAL HISTORY Past Medical History: Diagnosis Date Acid reflux Anxiety Arthritis Asperger syndrome Bipolar disorder (HCC) Chronic kidney disease stage 4 kidney failure Chronic pain Depression Edema of both legs GERD (gastroesophageal reflux disease) Hemorrhoids Hyperlipidemia Hypertension Hypothyroidism Iron (Fe) deficiency anemia Nephrogenic diabetes insipidus (HCC) Pain management Retention of urine, unspecified Sciatica SOB (shortness of breath) GRANT Type II or unspecified type diabetes mellitus without mention of complication, not stated as uncontrolled (HCC) Urinary incontinence nightly SURGICAL HISTORY Past Surgical History: Procedure Laterality Date 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 bisacodyl (Dulcolax) 10 MG suppository Insert into the rectum. buprenorphine (Butrans) 20 MCG/HR Place 1 patch on the skin. clonazePAM (KlonoPIN) 0.5 MG tablet Take 1 tablet (0.5 mg) by mouth 2 times daily as needed for anxiety. Qty: 60 tablet, Refills: 1 Comments: I have written a thirty day prescription with one refill to provide 60 days duration of therapy to patient. Associated Diagnoses: Chronic schizoaffective disorder (HCC) divalproex (Depakote ER) 250 MG 24 hr tablet Take 1 tablet (250 mg) by mouth in the morning and 1 tablet (250 mg) at noon and 1 tablet (250 mg) in the evening. Take with meals. Qty: 90 tablet, Refills: 2 DULoxetine (Cymbalta) [address] capsule Take 1 capsule (60 mg) by mouth daily. Do not crush or chew. Qty: 30 capsule, Refills: 3 epoetin molly-epbx (Retacrit) 76739 UNIT/ML injection Inject 10,000 Units under the skin. ergocalciferol (Vitamin D-2) 1.25 MG (03053 UT) capsule Take 1.25 mg by mouth 1 (one) time per week. furosemide (Lasix) 40 MG tablet Take 1 tablet (40 mg) by mouth daily. Qty: 30 tablet, Refills: 1 hydrALAZINE (Apresoline) 25 MG tablet Take 1 tablet (25 mg) by mouth 3 times daily. Qty: 90 tablet, Refills: 1 lamoTRIgine (LaMICtal) 200 MG tablet Take 1 tablet (200 mg) by mouth Nightly. Qty: 30 tablet, Refills: 3 levothyroxine (Synthroid, Levoxyl) 125 MCG tablet Take 1 tablet (125 mcg) by mouth daily. Do not start before August 06, 2024. MELATONIN PO Take by mouth. metoprolol tartrate (Lopressor) 100 MG tablet Take 1 tablet (100 mg) by mouth 2 times daily. Qty: 60 tablet, Refills: 3 omeprazole (PriLOSEC) [address] capsule Take 1 capsule (40 mg) by mouth every morning (before breakfast). Do not crush or chew. Qty: 90 capsule, Refills: 1 polyethylene glycol, PEG, 3350 (Miralax) 17 g packet Take by mouth. Polysaccharide Iron Complex (IFEREX 150 PO) Take by mouth. Daily Lne-Eki-Wekgwo risperiDONE (RisperDAL) 3 MG tablet Take 2 tablets (6 mg) by mouth Nightly. Qty: 60 tablet, Refills: 3 rosuvastatin (Crestor) 10 MG tablet TAKE 1 TABLET BY MOUTH DAILY Qty: 90 tablet, Refills: 1 tamsulosin (Flomax) 0.4 MG 24 hr capsule Take 1 capsule (0.4 mg) by mouth daily. Qty: 30 capsule, Refills: 11 Associated Diagnoses: Urinary retention traZODone (Desyrel) 100 MG tablet Take 2 tablets (200 mg) by mouth Nightly. Qty: 60 tablet, Refills: 3 ALLERGIES Benztropine, Diphenhydramine, Nsaids, Other, and Venlafaxine FAMILY HISTORY Family History Problem Relation Name Age of Onset Hypertension Mother Cancer Father Colon cancer Maternal Grandmother Cancer Brother SOCIAL HISTORY Social History Socioeconomic History Marital status: Single Tobacco Use Smoking status: Former Smokeless tobacco: Never Vaping Use Vaping status: Never Used Substance and Sexual Activity Alcohol use: No Alcohol/week: 0.0 standard drinks of alcohol Drug use: No Social Drivers of Health Financial Resource Strain: Low Risk (10/03/2024) Overall Financial Resource Strain (CARDIA) Difficulty of Paying Living Expenses: Not hard at all Food Insecurity: No Food Insecurity (10/03/2024) Hunger Vital Sign Worried About Running Out of Food in the Last Year: Never true Ran Out of Food in the Last Year: Never true Transportation Needs: No Transportation Needs (10/03/2024) PRAPARE - Transportation Lack of Transportation (Medical): No Lack of Transportation (Non-Medical): No Physical Activity: Inactive (10/03/2024) Exercise Vital Sign Days of Exercise per Week: 0 days Minutes of Exercise per Session: 0 min Stress: No Stress Concern Present (10/03/2024) [employer] [place] [employer] - Occupational Stress Questionnaire Feeling of Stress : Not at all Social Connections: Moderately Isolated (10/03/2024) Social Connection and Isolation Panel [NHANES] Frequency of Communication with Friends and Family: Three times a week Frequency of Social Gatherings with Friends and Family: Once a week Attends Cheondoism Services: 1 to 4 times per year Active Member of Clubs or Organizations: No Attends Club or Organization Meetings: Never Marital Status: Never Intimate Partner Violence: Not At Risk (10/03/2024) Humiliation, Afraid, Rape, and Kick questionnaire Fear of Current or Ex-Partner: No Emotionally Abused: No Physically Abused: No Sexually Abused: No Housing Stability: Low Risk (10/03/2024) Housing Stability Vital Sign Unable to Pay for Housing in the Last Year: No Number of Times Moved in the Last Year: 0 Homeless in the Last Year: No SCREENINGS PHYSICAL EXAM ED Triage Vitals [11/03/24 0213] Temp Heart Rate Resp BP 36.2 C (97.2 F) 62 18 127/88 SpO2 Temp Source Heart Rate Source Patient Position 96 % Tympanic Monitor Lying BP Location FiO2 (%) Right arm -- Physical Exam Vitals and nursing note reviewed. Constitutional: General: She is not in acute distress. Appearance: She is well-developed. She is obese. She is not ill-appearing or toxic-appearing. HENT: Head: Normocephalic and atraumatic. Nose: Nose normal. Eyes: Extraocular Movements: Extraocular movements intact. Cardiovascular: Rate and Rhythm: Normal rate and regular rhythm. Pulses: Normal pulses. Heart sounds: Normal heart sounds. Pulmonary: Effort: Pulmonary effort is normal. No respiratory distress. Breath sounds: Normal breath sounds. Abdominal: General: There is no distension. Palpations: Abdomen is soft. Tenderness: There is no abdominal tenderness. Musculoskeletal: General: Tenderness (right hip with palpation. No pain with log roll.) present. Normal range of motion. Cervical back: Normal range of motion and neck supple. Skin: General: Skin is warm and dry. Capillary Refill: Capillary refill takes less than 2 seconds. Neurological: General: No focal deficit present. Mental Status: She is alert. Mental status is at baseline. DIAGNOSTIC RESULTS Procedures/EKG: EKG was reviewed by myself. Physician EKG interpretation can be found in [facility] RADIOLOGY (Per Emergency Physician): Interpretation per the Radiologist below, if available at the time of this note: XR hip right 2 or 3 views Final Result No acute fracture or dislocation identified. Report Dictated on Electronically Signed By: Harvey Rayo MD Electronically Signed Date/Time: 11/03/2024 3:28 AM EDT ED BEDSIDE ULTRASOUND: Performed by ED Physician - none LABS: Labs Reviewed COMPLETE URINALYSIS - Abnormal Result Value Color, Urine Colorless Clarity, Urine Clear pH, Urine 6.0 Leukocytes, Urine Negative Nitrite, Urine Negative Protein, Urine 10 (*) Glucose, Urine Normal Bilirubin, Urine Negative Ketones, Urine Negative Urobilinogen, Urine Normal Blood, Urine Negative Volume, Urine 12 mL RBC, Urine 0-2 WBC, Urine Negative Squamous Epithelial, Urine Negative Bacteria, Urine Negative SPECIFIC GRAVITY OF URINE (NUMERIC) 1.004 (*) CBC (HEMOGRAM) - Abnormal Auto WBC 8.9 RBC 2.69 (*) Hemoglobin 8.7 (*) Hematocrit 26.1 (*) MCV 97.0 MCH 32.3 MCHC 33.3 RDW 13.4 Platelets 236 MPV 9.3 BMPI ISTAT (LAB ONLY) - Abnormal Sodium, WB 130 (*) POTASSIUM,WB 3.7 CHLORIDE,WB 91 (*) CO2 WHOLE BLOOD 28 ANION GAP 11.00 GLUCOSE, WB 89 UREA NITROGEN, WB 31 (*) eGFR, Whole Blood 14.6 CREATININE, WB 3.5 (*) CALCIUM,IONIZED 4.70 Narrative: Performed by: [facility], [address] [place] [address] CLIA ID: [id number] COMPLETE URINALYSIS WITH REFLEX TO CULTURE Narrative: The following orders were created for panel order Complete Urinalysis with reflex to Culture. Procedure Abnormality Status --------- ------ Complete Urinalysis[[id number]] Abnormal Final result Please view results for these tests on the individual orders. All other labs were within normal range or not returned as of this dictation. EMERGENCY DEPARTMENT COURSE and DIFFERENTIAL DIAGNOSIS/MDM: Vitals: Vitals: 11/03/24 0213 BP: 127/88 BP Location: Right arm Patient Position: Lying Pulse: 62 Resp: 18 Temp: 36.2 C (97.2 F) TempSrc: Tympanic SpO2: 96% Weight: 136 kg (300 lb) Height: 1.6 m (5' 3") Diagnoses as of 11/03/24 0442 Urinary retention Fall, initial encounter Pain of right hip The patient presented with chief complaint of fall. The differential diagnosis associated with this patient's presentation includes hip fracture, head injury, UTI. Our workup consisted of ordering/reviewing: labs, UA, xray. Patient is in agreement with this plan. Medications sodium chloride 0.9 % bolus 1,000 mL (1,000 mL IntraVENous New Bag 11/03/24 0423) REVAL: 59-year-old female presenting to the ED after she slid out of her chair while she was asleep. Patient is AOx4 and does not have any neurological deficits. She is not anticoagulated. Her vitals are stable. Low concern for intracranial bleeding therefore head CT was not obtained. She is having right-sided hip pain and x-ray was obtained. No fractures or dislocation. While in the emergency department patient was unable to urinate. A bladder scan was performed that showed greater than 800 cc urinary retention. Chart review shows that the patient recently had urinary retention requiring a catheter. We did place a Infante catheter and she will be discharged with urology follow-up. Urinalysis does not show evidence of infection. H/H is low but consistent with her baseline. Low concern for bleeding. She has a hyponatremia 130 that will be replaced with 1 L of normal saline. She was advised to follow-up in 1 week with her PCP for repeat lab work. She will return to the ER for worsening symptoms. CRITICAL CARE TIME CONSULTS: None PROCEDURES: Unless otherwise noted below, none Procedures Patients symptoms are consistent with sepsis, severe sepsis, or septic shock (If yes use ".sepsiscoremeasure"): FINAL IMPRESSION 1. Urinary retention 2. Fall, initial encounter 3. Pain of right hip DISPOSITION Discharge 11/03/2024 04:22:44 AM PATIENT REFERRED TO: Edith Pierce MD [address] [facility] [address] [facility] [address] Brian Chatterjee APRN - JEWELRY RACKER [address] [facility] [address] [facility] [address] DISCHARGE MEDICATIONS: Current Discharge Medication List (Comment: Please note this report has been produced using speech recognition software and may contain errors related to that system including errors in grammar, punctuation, and spelling, as well as words and phrases that may be inappropriate. If there are any questions or concerns please feel free to contact the dictating provider for clarification.) Javad Lees DO (electronically signed) Emergency Medicine Provider Javad Lees DO 11/03/24 0446 documented in this encounter [facility] 11-03-2024 Hospital Discharge instructions Javad Lees DO - 11/03/2024 4:23 AM EDT Follow-up with your primary care physician for repeat lab work in 1 week to make sure your sodium levels are uptrending. Follow-up with your urologist for management of urinary retention. Return to the ER for worsening symptoms. documented in this encounter [facility] 11-03-2024 Physician Emergency department Note EMERGENCY DEPARTMENT ENCOUNTER Pt Name: Jessy Mckeon Birthdate 1965 Date of evaluation: 11/03/2024 ED Provider: Javad Lees DO CHIEF COMPLAINT Chief Complaint Patient presents with Fall HISTORY OF PRESENT ILLNESS (Location/Symptom, Timing/Onset, Context/Setting, Quality, Duration, Modifying Factors, Severity) Note limiting factors. I wore appropriate PPE for the entirety of this encounter. HPI Jessy Mckeon is a 59 y.o. who presents to the emergency department with chief complaint of fall. Nursing staff reported that the patient had an unwitnessed fall where she slid out of bed but immediately had her call light. Patient denies head injury or LOC. She is not anticoagulated. Endorses right hip pain without other acute injuries. States that she was half asleep and slipped out of her chair. Nursing Notes were reviewed. Limitations to history: None Outside historians: Caregiver REVIEW OF SYSTEMS Review of Systems Pertinent positives and negatives as per HPI. PAST MEDICAL HISTORY Past Medical History: Diagnosis Date Acid reflux Anxiety Arthritis Asperger syndrome Bipolar disorder (HCC) Chronic kidney disease stage 4 kidney failure Chronic pain Depression Edema of both legs GERD (gastroesophageal reflux disease) Hemorrhoids Hyperlipidemia Hypertension Hypothyroidism Iron (Fe) deficiency anemia Nephrogenic diabetes insipidus (HCC) Pain management Retention of urine, unspecified Sciatica SOB (shortness of breath) GRANT Type II or unspecified type diabetes mellitus without mention of complication, not stated as uncontrolled (HCC) Urinary incontinence nightly SURGICAL HISTORY Past Surgical History: Procedure Laterality Date 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 CHOLECYSTECTOMY COLON SURGERY c-diff COLONOSCOPY 03/28/2018 no polyps UPPER GASTROINTESTINAL ENDOSCOPY 03/28/2018 CURRENT MEDICATIONS Current Discharge Medication List CONTINUE these medications which have NOT CHANGED Details acetaminophen (Tylenol) 325 MG tablet Take by mouth. bisacodyl (Dulcolax) 10 MG suppository Insert into the rectum. buprenorphine (Butrans) 20 MCG/HR Place 1 patch on the skin. clonazePAM (KlonoPIN) 0.5 MG tablet Take 1 tablet (0.5 mg) by mouth 2 times daily as needed for anxiety. Qty: 60 tablet, Refills: 1 Comments: I have written a thirty day prescription with one refill to provide 60 days duration of therapy to patient. Associated Diagnoses: Chronic schizoaffective disorder (HCC) divalproex (Depakote ER) 250 MG 24 hr tablet Take 1 tablet (250 mg) by mouth in the morning and 1 tablet (250 mg) at noon and 1 tablet (250 mg) in the evening. Take with meals. Qty: 90 tablet, Refills: 2 DULoxetine (Cymbalta) [address] capsule Take 1 capsule (60 mg) by mouth daily. Do not crush or chew. Qty: 30 capsule, Refills: 3 epoetin molly-epbx (Retacrit) 69291 UNIT/ML injection Inject 10,000 Units under the skin. ergocalciferol (Vitamin D-2) 1.25 MG (86531 UT) capsule Take 1.25 mg by mouth 1 (one) time per week. furosemide (Lasix) 40 MG tablet Take 1 tablet (40 mg) by mouth daily. Qty: 30 tablet, Refills: 1 hydrALAZINE (Apresoline) 25 MG tablet Take 1 tablet (25 mg) by mouth 3 times daily. Qty: 90 tablet, Refills: 1 lamoTRIgine (LaMICtal) 200 MG tablet Take 1 tablet (200 mg) by mouth Nightly. Qty: 30 tablet, Refills: 3 levothyroxine (Synthroid, Levoxyl) 125 MCG tablet Take 1 tablet (125 mcg) by mouth daily. Do not start before August 06, 2024. MELATONIN PO Take by mouth. metoprolol tartrate (Lopressor) 100 MG tablet Take 1 tablet (100 mg) by mouth 2 times daily. Qty: 60 tablet, Refills: 3 omeprazole (PriLOSEC) [address] capsule Take 1 capsule (40 mg) by mouth every morning (before breakfast). Do not crush or chew. Qty: 90 capsule, Refills: 1 polyethylene glycol, PEG, 3350 (Miralax) 17 g packet Take by mouth. Polysaccharide Iron Complex (IFEREX 150 PO) Take by mouth. Daily Isn-Iyg-Vcjdyy risperiDONE (RisperDAL) 3 MG tablet Take 2 tablets (6 mg) by mouth Nightly. Qty: 60 tablet, Refills: 3 rosuvastatin (Crestor) 10 MG tablet TAKE 1 TABLET BY MOUTH DAILY Qty: 90 tablet, Refills: 1 tamsulosin (Flomax) 0.4 MG 24 hr capsule Take 1 capsule (0.4 mg) by mouth daily. Qty: 30 capsule, Refills: 11 Associated Diagnoses: Urinary retention traZODone (Desyrel) 100 MG tablet Take 2 tablets (200 mg) by mouth Nightly. Qty: 60 tablet, Refills: 3 ALLERGIES Benztropine, Diphenhydramine, Nsaids, Other, and Venlafaxine FAMILY HISTORY Family History Problem Relation Name Age of Onset Hypertension Mother Cancer Father Colon cancer Maternal Grandmother Cancer Brother SOCIAL HISTORY Social History Socioeconomic History Marital status: Single Tobacco Use Smoking status: Former Smokeless tobacco: Never Vaping Use Vaping status: Never Used Substance and Sexual Activity Alcohol use: No Alcohol/week: 0.0 standard drinks of alcohol Drug use: No Social Drivers of Health Financial Resource Strain: Low Risk (10/03/2024) Overall Financial Resource Strain (CARDIA) Difficulty of Paying Living Expenses: Not hard at all Food Insecurity: No Food Insecurity (10/03/2024) Hunger Vital Sign Worried About Running Out of Food in the Last Year: Never true Ran Out of Food in the Last Year: Never true Transportation Needs: No Transportation Needs (10/03/2024) PRAPARE - Transportation Lack of Transportation (Medical): No Lack of Transportation (Non-Medical): No Physical Activity: Inactive (10/03/2024) Exercise Vital Sign Days of Exercise per Week: 0 days Minutes of Exercise per Session: 0 min Stress: No Stress Concern Present (10/03/2024) [employer] - Occupational Stress Questionnaire Feeling of Stress : Not at all Social Connections: Moderately Isolated (10/03/2024) Social Connection and Isolation Panel [NHANES] Frequency of Communication with Friends and Family: Three times a week Frequency of Social Gatherings with Friends and Family: Once a week Attends Cheondoism Services: 1 to 4 times per year Active Member of Clubs or Organizations: No Attends Club or Organization Meetings: Never Marital Status: Never Intimate Partner Violence: Not At Risk (10/03/2024) Humiliation, Afraid, Rape, and Kick questionnaire Fear of Current or Ex-Partner: No Emotionally Abused: No Physically Abused: No Sexually Abused: No Housing Stability: Low Risk (10/03/2024) Housing Stability Vital Sign Unable to Pay for Housing in the Last Year: No Number of Times Moved in the Last Year: 0 Homeless in the Last Year: No SCREENINGS PHYSICAL EXAM ED Triage Vitals [11/03/24 0213] Temp Heart Rate Resp BP 36.2 C (97.2 F) 62 18 127/88 SpO2 Temp Source Heart Rate Source Patient Position 96 % Tympanic Monitor Lying BP Location FiO2 (%) Right arm -- Physical Exam Vitals and nursing note reviewed. Constitutional: General: She is not in acute distress. Appearance: She is well-developed. She is obese. She is not ill-appearing or toxic-appearing. HENT: Head: Normocephalic and atraumatic. Nose: Nose normal. Eyes: Extraocular Movements: Extraocular movements intact. Cardiovascular: Rate and Rhythm: Normal rate and regular rhythm. Pulses: Normal pulses. Heart sounds: Normal heart sounds. Pulmonary: Effort: Pulmonary effort is normal. No respiratory distress. Breath sounds: Normal breath sounds. Abdominal: General: There is no distension. Palpations: Abdomen is soft. Tenderness: There is no abdominal tenderness. Musculoskeletal: General: Tenderness (right hip with palpation. No pain with log roll.) present. Normal range of motion. Cervical back: Normal range of motion and neck supple. Skin: General: Skin is warm and dry. Capillary Refill: Capillary refill takes less than 2 seconds. Neurological: General: No focal deficit present. Mental Status: She is alert. Mental status is at baseline. DIAGNOSTIC RESULTS Procedures/EKG: EKG was reviewed by myself. Physician EKG interpretation can be found in [facility] RADIOLOGY (Per Emergency Physician): Interpretation per the Radiologist below, if available at the time of this note: XR hip right 2 or 3 views Final Result No acute fracture or dislocation identified. Report Dictated on Electronically Signed By: Harvey Rayo MD Electronically Signed Date/Time: 11/03/2024 3:28 AM EDT ED BEDSIDE ULTRASOUND: Performed by ED Physician - none LABS: Labs Reviewed COMPLETE URINALYSIS - Abnormal Result Value Color, Urine Colorless Clarity, Urine Clear pH, Urine 6.0 Leukocytes, Urine Negative Nitrite, Urine Negative Protein, Urine 10 (*) Glucose, Urine Normal Bilirubin, Urine Negative Ketones, Urine Negative Urobilinogen, Urine Normal Blood, Urine Negative Volume, Urine 12 mL RBC, Urine 0-2 WBC, Urine Negative Squamous Epithelial, Urine Negative Bacteria, Urine Negative SPECIFIC GRAVITY OF URINE (NUMERIC) 1.004 (*) CBC (HEMOGRAM) - Abnormal Auto WBC 8.9 RBC 2.69 (*) Hemoglobin 8.7 (*) Hematocrit 26.1 (*) MCV 97.0 MCH 32.3 MCHC 33.3 RDW 13.4 Platelets 236 MPV 9.3 BMPI ISTAT (LAB ONLY) - Abnormal Sodium, WB 130 (*) POTASSIUM,WB 3.7 CHLORIDE,WB 91 (*) CO2 WHOLE BLOOD 28 ANION GAP 11.00 GLUCOSE, WB 89 UREA NITROGEN, WB 31 (*) eGFR, Whole Blood 14.6 CREATININE, WB 3.5 (*) CALCIUM,IONIZED 4.70 Narrative: Performed by: [facility], [address] [place] [address] CLIA ID: [id number] COMPLETE URINALYSIS WITH REFLEX TO CULTURE Narrative: The following orders were created for panel order Complete Urinalysis with reflex to Culture. Procedure Abnormality Status --------- ------ Complete Urinalysis[[id number]] Abnormal Final result Please view results for these tests on the individual orders. All other labs were within normal range or not returned as of this dictation. EMERGENCY DEPARTMENT COURSE and DIFFERENTIAL DIAGNOSIS/MDM: Vitals: Vitals: 11/03/24 0213 BP: 127/88 BP Location: Right arm Patient Position: Lying Pulse: 62 Resp: 18 Temp: 36.2 C (97.2 F) TempSrc: Tympanic SpO2: 96% Weight: 136 kg (300 lb) Height: 1.6 m (5' 3") Diagnoses as of 11/03/24441 Urinary retention Fall, initial encounter Pain of right hip The patient presented with chief complaint of fall. The differential diagnosis associated with this patient's presentation includes hip fracture, head injury, UTI. Our workup consisted of ordering/reviewing: labs, UA, xray. Patient is in agreement with this plan. Medications sodium chloride 0.9 % bolus 1,000 mL (1,000 mL IntraVENous New Bag 11/03/24422) REVAL: 59-year-old female presenting to the ED after she slid out of her chair while she was asleep. Patient is AOx4 and does not have any neurological deficits. She is not anticoagulated. Her vitals are stable. Low concern for intracranial bleeding therefore head CT was not obtained. She is having right-sided hip pain and x-ray was obtained. No fractures or dislocation. While in the emergency department patient was unable to urinate. A bladder scan was performed that showed greater than 800 cc urinary retention. Chart review shows that the patient recently had urinary retention requiring a catheter. We did place a Infante catheter and she will be discharged with urology follow-up. Urinalysis does not show evidence of infection. H/H is low but consistent with her baseline. Low concern for bleeding. She has a hyponatremia 130 that will be replaced with 1 L of normal saline. She was advised to follow-up in 1 week with her PCP for repeat lab work. She will return to the ER for worsening symptoms. CRITICAL CARE TIME CONSULTS: None PROCEDURES: Unless otherwise noted below, none Procedures Patients symptoms are consistent with sepsis, severe sepsis, or septic shock (If yes use ".sepsiscoremeasure"): FINAL IMPRESSION 1. Urinary retention 2. Fall, initial encounter 3. Pain of right hip DISPOSITION Discharge 11/03/2024 04:22:44 AM PATIENT REFERRED TO: Edith Pierce MD [address] [facility] [address] [facility] [address] Brian Chatterjee, BINDER OPERATOR - JEWELRY RACKER [address] [facility] [address] [facility] [address] DISCHARGE MEDICATIONS: Current Discharge Medication List (Comment: Please note this report has been produced using speech recognition software and may contain errors related to that system including errors in grammar, punctuation, and spelling, as well as words and phrases that may be inappropriate. If there are any questions or concerns please feel free to contact the dictating provider for clarification.) Javad Lees DO (electronically signed) Emergency Medicine Provider Javad Lees DO 11/03/24 0446 [facility] 10-08-2024 Telephone encounter Note Patient declined hospital follow up appointment at this time. [facility] [employer] 10-08-2024 Miscellaneous Notes Patient declined hospital follow up appointment at this time. See if patient would like to schedule a hospital follow-up please asked the hospital follow-up transfer questions documented in this encounter [facility] [employer] 10-08-2024 Telephone encounter Note See if patient would like to schedule a hospital follow-up please asked the hospital follow-up transfer questions [facility] [employer] 10-06-2024 Note [facility] 10-03-2024 Note [facility] 09-18-2024 History of Present illness Narrative Images from the original note were not included. [facility] [address] [facility] [address] Dept: [phone] Dept Loc: [phone] Reason for Visit: Hospital Follow-up ([facility]) Assessment and Plan 1. Psychogenic polydipsia from [employer] monitoring. BMP recently done in August. 2. Anemia in stage 4 chronic kidney disease (HCC) ([facility]) CBC nephrology is following the chronic kidney disease. 3. Chronic schizoaffective disorder (HCC) dietary following and prescribing medications increase exercise 4. Morbid obesity with BMI of 45.0-49.9, adult ([facility]) encouraged weight loss 5. HTN (hypertension), benign chronic stable continue hydralazine and metoprolol. 6. Mixed hyperlipidemia check a lipid panel continue the Crestor 10 mg 7. Acquired hypothyroidism currently also has a history of thyroid issues on levothyroxine check a TSH. Patient has a history of chronic pain is seeing chronic pain management. [facility]. current treatment plan is effective, no change in therapy, orders and follow up as documented in EMR, lab results reviewed with patient, repeat labs ordered prior to next appointment, reviewed compliance with lifestyle measures, reviewed diet, exercise and weight control, reviewed medications and side effects in detail Return visit in 3 months. Jesse PEÑA is a 59-year-old female patient who is accompanied by her mom for the appointment. 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 She was at rehab for a while and now she has been discharged. Patient does see her group work program director on a fairly often basis Dr. Andre. Recent blood work did show some improvement in her sodium at 131. Her creatinine was stable but remained elevated. She has a history of mental health issues she sees Dr. Fran Bowers the psychiatrist for. Currently medications are managed by him. In addition to that she does have a history of hypothyroidism and is currently on levothyroxine. She also has a history of hypertension which is well-controlled on her meds she is not complaining of any chest pain or any shortness of breath no headaches no blurred vision. Review of Systems Constitutional: Negative. Negative for activity change, appetite change and fever. HENT: Negative. Negative for congestion. Eyes: Negative. Negative for discharge. Respiratory: Negative. Negative for chest tightness. Cardiovascular: Negative. Gastrointestinal: Negative. Endocrine: Negative. Negative for cold intolerance. Genitourinary: Negative for difficulty urinating. Musculoskeletal: Negative. Neurological: Negative. Negative for dizziness, facial asymmetry and headaches. Hematological: Negative. Allergies Allergen Reactions Benztropine Disorientation and loss of muscle control Diphenhydramine Disorientation Nsaids CKD Stage 3 Other Anticholinergics: cause disorientation and loss of muscle control Venlafaxine Hives Current Outpatient Medications Medication Sig Dispense Refill acetaminophen (Tylenol) 325 MG tablet Take by mouth. amLODIPine (Norvasc) 5 MG tablet take 1 tablet by mouth once daily 30 tablet 0 bisacodyl (Dulcolax) 10 MG suppository Insert into the rectum. buprenorphine (Butrans) 20 MCG/HR Place 1 patch on the skin. clonazePAM (KlonoPIN) 0.5 MG tablet Take 1 tablet (0.5 mg) by mouth 2 times daily as needed for anxiety. 60 tablet 1 divalproex (Depakote ER) 250 MG 24 hr tablet Take 1 tablet (250 mg) by mouth in the morning and 1 tablet (250 mg) at noon and 1 tablet (250 mg) in the evening. Take with meals. 90 tablet 2 DULoxetine (Cymbalta) [address] capsule Take 1 capsule (60 mg) by mouth daily. Do not crush or chew. 30 capsule 3 epoetin molly-epbx (Retacrit) 04554 UNIT/ML injection Inject 10,000 Units under the skin. ergocalciferol (Vitamin D-2) 1.25 MG (74643 UT) capsule Take 1.25 mg by mouth 1 (one) time per week. heparin 1 unit/mL SubQ Q12 hours hydrALAZINE (Apresoline) 50 MG tablet Take 1 tablet (50 mg) by mouth 3 times daily. 90 tablet 11 lamoTRIgine (LaMICtal) 200 MG tablet Take 1 tablet (200 mg) by mouth Nightly. 30 tablet 3 levothyroxine (Synthroid, Levoxyl) 125 MCG tablet Take 1 tablet (125 mcg) by mouth daily. Do not start before August 06, 2024. MELATONIN PO Take by mouth. metoprolol tartrate (Lopressor) 100 MG tablet Take 1 tablet (100 mg) by mouth 2 times daily. 60 tablet 3 pantoprazole (ProtoNix) 40 MG EC tablet Take 40 mg by mouth every morning (before breakfast). Do not crush, chew, or split. polyethylene glycol, PEG, 3350 (Miralax) 17 g packet Take by mouth. risperiDONE (RisperDAL) 3 MG tablet Take 2 tablets (6 mg) by mouth Nightly. 60 tablet 3 rosuvastatin (Crestor) 10 MG tablet TAKE 1 TABLET BY MOUTH DAILY 90 tablet 1 sennosides (Senokot) 8.6 MG tablet Take 2 tablets (17.2 mg) by mouth 2 times daily. 120 tablet 2 tamsulosin (Flomax) 0.4 MG 24 hr capsule Take 1 capsule (0.4 mg) by mouth daily. 30 capsule 11 traZODone (Desyrel) 100 MG tablet Take 2 tablets (200 mg) by mouth Nightly. 60 tablet 3 omeprazole (PriLOSEC) [address] capsule Take 1 capsule (40 mg) by mouth every morning (before breakfast). Do not crush or chew. 90 capsule 1 Polysaccharide Iron Complex (IFEREX 150 PO) Take by mouth. Daily Run-Mzs-Iihwlm No current facility-administered medications for this visit. Patient Active Problem List Diagnosis Urge incontinence of urine Dyspnea Anxiety Schizoaffective disorder (CMS/HCC) ([facility]) Chest pain Iron (Fe) deficiency anemia GERD (gastroesophageal reflux disease) Depression Suicidal ideations Acute gastric ulcer without hemorrhage or perforation Hypothyroidism Urinary incontinence Diverticulosis of large intestine without diverticulitis Chronic antral gastritis First degree hemorrhoids Nocturia Rotator cuff strain Osteoarthritis of patellofemoral joint Urge incontinence Urinary retention Localized edema Morbid obesity with BMI of 45.0-49.9, adult ([facility]) Hypomagnesemia JOSE A (acute kidney injury) ([facility]) Chronic bilateral low back pain with bilateral sciatica Primary hypothyroidism Psychogenic polydipsia Pneumonia Hyponatremia Hypertension Bipolar disorder (HCC) Lung infiltrate on CT Chronic schizoaffective disorder ([facility]) Urinary tract infection Urinary tract infection without hematuria, site unspecified Chronic renal disease, stage IV (HCC) Chronic kidney disease, stage 3b (HCC) Acute cystitis without hematuria Fluid overload Hypervolemia, unspecified hypervolemia type Past Medical History: Diagnosis Date Acid reflux Anxiety Arthritis Asperger syndrome Bipolar disorder (HCC) Chronic kidney disease stage 4 kidney failure Chronic pain Depression Edema of both legs GERD (gastroesophageal reflux disease) Hemorrhoids Hyperlipidemia Hypertension Hypothyroidism Iron (Fe) deficiency anemia Nephrogenic diabetes insipidus (HCC) Pain management Retention of urine, unspecified Sciatica SOB (shortness of breath) GRANT Type II or unspecified type diabetes mellitus without mention of complication, not stated as uncontrolled (HCC) Urinary incontinence nightly Social History Tobacco Use Smoking status: Former Smokeless tobacco: Never Substance Use Topics Alcohol use: No Alcohol/week: 0.0 standard drinks of alcohol Past Surgical History: Procedure Laterality Date 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 CHOLECYSTECTOMY COLON SURGERY c-diff COLONOSCOPY 03/28/2018 no polyps UPPER GASTROINTESTINAL ENDOSCOPY 03/28/2018 Family History Problem Relation Name Age of Onset Hypertension Mother Cancer Father Colon cancer Maternal Grandmother Cancer Brother Health Maintenance Topic Date Due MMR Vaccines (1 of 1 - Standard series) Never done Hepatitis B Vaccines (1 of 3 - 19+ 3-dose series) Never done Zoster Vaccines (1 of 2) Never done Medicare Annual Wellness (AWV) 04/14/2023 Mammogram 05/11/2023 Cervical Cancer Screening 07/04/2023 Depression Monitoring 09/17/2023 Diabetes Screening 09/28/2023 Influenza Vaccine (1) 04/15/2024 COVID-19 Vaccine ( season) 2024 TSH Level 08/06/2025 Colorectal Cancer Screening 03/28/2028 Lipid Panel 06/28/2028 DTaP/Tdap/Td Vaccines (2 - Td or Tdap) 12/04/2028 RSV Immunization for Adults (1 - 1-dose 75+ series) 2042 Pneumococcal Vaccine: 50+ Years Completed HIV Screening Completed Hepatitis C Screening Completed RSV Immunization under 20 Months Aged Out HIB Vaccines Aged Out IPV Vaccines Aged Out Hepatitis A Vaccines Aged Out Meningococcal Vaccine Aged Out Rotavirus Vaccines Aged Out HPV Vaccines Aged Out Objective BP 126/77 Pulse 67 Temp 36.1 C (97 F) Ht 5' 5" (1.651 m) Wt 272 lb (123 kg) BMI 45.26 kg/m Physical Exam Vitals and nursing note reviewed. Constitutional: Appearance: Normal appearance. HENT: Head: Normocephalic and atraumatic. Nose: No congestion or rhinorrhea. Mouth/Throat: Mouth: Mucous membranes are moist. Pharynx: Oropharynx is clear. No posterior oropharyngeal erythema. Eyes: Extraocular Movements: Extraocular movements intact. Conjunctiva/sclera: Conjunctivae normal. Pupils: Pupils are equal, round, and reactive to light. Cardiovascular: Pulses: Normal pulses. Heart sounds: Normal heart sounds. No murmur heard. Pulmonary: Effort: Pulmonary effort is normal. No respiratory distress. Breath sounds: Normal breath sounds. No wheezing. Abdominal: General: Abdomen is flat. Bowel sounds are normal. Palpations: Abdomen is soft. Tenderness: There is no abdominal tenderness. Musculoskeletal: General: No swelling. Cervical back: Normal range of motion. Skin: General: Skin is warm and dry. Neurological: General: No focal deficit present. Mental Status: She is alert and oriented to person, place, and time. Mental status is at baseline. Psychiatric: Mood and Affect: Mood normal. Data Reviewed and Summarized Labs: Lab Results Component Value Date WBC 3.8 08/24/2024 HGB 9.0 (L) 08/24/2024 HCT 28.5 (L) 08/24/2024 PLT 209 08/24/2024 TSH 0.72 08/06/2024 Lab Results Component Value Date NA 131 (L) 08/24/2024 K 4.9 08/24/2024 CL 103 08/24/2024 CO2 20 (L) 08/24/2024 BUN 18 08/24/2024 CREATININE 2.84 (H) 08/24/2024 GLUCOSE 74 08/24/2024 CALCIUM 9.1 08/24/2024 PROT 6.9 08/03/2024 BILITOT 0.3 08/03/2024 ALKPHOS 75 08/03/2024 AST 20 08/03/2024 ALT <6 08/03/2024 @GLUCOSELAB@ Lab Results Component Value Date CHOL 247 (H) 06/28/2023 CHOL 233 (A) 03/24/2022 Lab Results Component Value Date TRIG 106 06/28/2023 TRIG 142 03/24/2022 Lab Results Component Value Date HDL 44 06/28/2023 HDL 53 03/24/2022 Lab Results Component Value Date LDLCALC 182 (H) 06/28/2023 No results found for: "VLDL" Lab Results Component Value Date CHOLHDLRATIO 6 06/28/2023 CHOLHDLRATIO 4 03/24/2022 Imaging/Testing: POCT glucose meter Performed by: [facility], [address] [place] [address] CLIA ID: [id number] Edith Pierce MD documented in this encounter [facility] 08-31-2024 Note Chart reviewed. 2nd attempt to contact patient for transitions post-discharge outreach. No answer, unable to leave a VM as mailbox is full. Will follow up again. [facility] 08-29-2024 Telephone encounter Note FOLLOW UP QUESTIONS FOR MA/SW: 1. Did you get medications filled and takingthem as instructed from discharge? yes 2. Are you following your discharge instructions from your hospital stay? yes 3. Please confirm patient is scheduled for a follow up appointment within the above time frame. Appt in place [facility] 08-29-2024 Miscellaneous Notes FOLLOW UP QUESTIONS FOR MA/SW: 1. Did you get medications filled and takingthem as instructed from discharge? yes 2. Are you following your discharge instructions from your hospital stay? yes 3. Please confirm patient is scheduled for a follow up appointment within the above time frame. Appt in place is not accepting messages, attempted to call to ask: FOLLOW UP QUESTIONS FOR MA/SW: 1. Did you get medications filled and takingthem as instructed from discharge? 2. Are you following your discharge instructions from your hospital stay? 3. Please confirm patient is scheduled for a follow up appointment within the above time frame. Patient scheduled for first available RYAN slot, being discharged on 08/25/24. Name of Caller: [facility] Contact Reason for Appointment: Metabolic Encephalopathy Office Name: [facility] Medication Refills need, if any: n/a Medication Name: n/a documented in this encounter [facility] 08-28-2024 Note Chart reviewed, note d that patient was discharged from [facility] on 08/25/24. Phone call to patient for transitional outreach. No answer and unable to leave a VM at this time. Will attempt to contact patient again. [facility] 08-27-2024 Telephone encounter Note is not accepting messages, attempted to call to ask: FOLLOW UP QUESTIONS FOR MA/SW: 1. Did you get medications filled and takingthem as instructed from discharge? 2. Are you following your discharge instructions from your hospital stay? 3. Please confirm patient is scheduled for a follow up appointment within the above time frame. [facility] 08-23-2024 Telephone encounter Note Patient scheduled for first available RYAN slot, being discharged on 08/25/24. Name of Caller: [facility] Contact Reason for Appointment: Metabolic Encephalopathy Office Name: [facility] Medication Refills need, if any: n/a Medication Name: n/a [facility] 08-10-2024 Hospital course Narrative Discharge Summary Jessy Mckeon : 1965 ADMIT DATE: 08/03/2024 DISCHARGE DATE: 08/10/2024 PRIMARY CARE PHYSICIAN: Edith Pierce VISIT STATUS: Admission CODE STATUS: Full Code DISCHARGE DIAGNOSES: Principal Problem: Fluid overload Active Problems: Hypervolemia, unspecified hypervolemia type HOSPITAL COURSE: Patient is a 59-year-old female with history of CKD 4, HTN, HLD, obesity, as Buerger's syndrome, bipolar disorder, depression, anxiety, hypothyroidism, debility, recent evaluation at [facility] for mechanical fall with right foot contusion/swelling. She presented to [facility] 08/03 from SNF for generalized bodyaches, leg edema. Admitted for further workup and evaluation, mild A renal insufficiency/CKD, hyponatremia. UA was suggestive of UTI, patient started on IV Rocephin. Nephrology consulted for CKD for optimization. Renal function returned back to baseline, and he completed antibiotics for E. coli UTI. PT/OT recommended SNF, and patient was discharged in stable condition. SIGNIFICANT DIAGNOSTIC STUDIES: CONSULTANTS: Nephrology RECOMMENDED NEXT STEPS: Physical Exam Vitals and nursing note reviewed. Constitutional: Appearance: Normal appearance. Cardiovascular: Rate and Rhythm: Normal rate. Pulmonary: Effort: Pulmonary effort is normal. Abdominal: General: Abdomen is flat. Neurological: Mental Status: She is alert. Psychiatric: Mood and Affect: Mood normal. Behavior: Behavior normal. DISCHARGE MEDICATIONS: Medication List CHANGE how you take these medications levothyroxine 125 MCG tablet Commonly known as: Synthroid, Levoxyl What changed: medication strength how much to take CONTINUE taking these medications amLODIPine 5 MG tablet Commonly known as: Norvasc take 1 tablet by mouth once daily clonazePAM 0.5 MG tablet Commonly known as: KlonoPIN Take 1 tablet (0.5 mg) by mouth 2 times daily as needed for anxiety for up to 3 days. divalproex 250 MG 24 hr tablet Commonly known as: Depakote ER Take 1 tablet (250 mg) by mouth in the morning and 1 tablet (250 mg) at noon and 1 tablet (250 mg) in the evening. Take with meals. DULoxetine [address] capsule Commonly known as: Cymbalta Take 1 capsule (60 mg) by mouth daily. Do not crush or chew. ergocalciferol 1.25 MG (71222 UT) capsule Commonly known as: Vitamin D-2 hydrALAZINE 50 MG tablet Commonly known as: Apresoline Take 1 tablet (50 mg) by mouth 3 times daily. lamoTRIgine 200 MG tablet Commonly known as: LaMICtal Take 1 tablet (200 mg) by mouth Nightly. metoprolol tartrate 100 MG tablet Commonly known as: Lopressor Take 1 tablet (100 mg) by mouth 2 times daily. omeprazole [address] capsule Commonly known as: PriLOSEC Take 1 capsule (40 mg) by mouth every morning (before breakfast). Do not crush or chew. risperiDONE 3 MG tablet Commonly known as: RisperDAL Take 2 tablets (6 mg) by mouth Nightly. rosuvastatin 10 MG tablet Commonly known as: Crestor TAKE 1 TABLET BY MOUTH DAILY sennosides 8.6 MG tablet Commonly known as: Senokot Take 2 tablets (17.2 mg) by mouth 2 times daily. tamsulosin 0.4 MG 24 hr capsule Commonly known as: Flomax Take 1 capsule (0.4 mg) by mouth daily. traZODone 100 MG tablet Commonly known as: Desyrel Take 2 tablets (200 mg) by mouth Nightly. STOP taking these medications Butrans 15 MCG/HR Generic drug: buprenorphine ASK your doctor about these medications HYDROcodone-acetaminophen 5-325 MG tablet Commonly known as: [place] Take 1 tablet by mouth every 6 hours as needed for moderate pain (4-6) or severe pain (7-10) for up to 3 days. Ask about: Should I take this medication? Where to Get Your Medications You can get these medications from any pharmacy Bring a paper prescription for each of these medications clonazePAM 0.5 MG tablet HYDROcodone-acetaminophen 5-325 MG tablet DIET: Adult diet Regular; Low Potassium (Less than 3000 mg/day) ACTIVITY: No restriction. COMPLEXITY OF FOLLOW UP: [x] Moderate Complexity: follow up within 7-14 calendar days (34053) [] Severe Complexity: follow up within 7 calendar days (11677) FOLLOW UP TESTING, PENDING RESULTS OR REFERRALS AT TRANSITIONAL CARE VISIT: [] Yes [] No PENDING STUDIES: DISPOSITION: Acute Rehab FACILITY/HOME CARE AGENCY NAME: [facility] rehab Follow up with Edith Pierce MD [address] [facility] [address] INSTRUCTIONS TO MA/SW: Please call patient on day after discharge (must document patient contacted within 2 business days of discharge). FOLLOW UP QUESTIONS FOR MA/SW: 1. Did you get medications filled and taking them as instructed from discharge? 2. Are you following your discharge instructions from your hospital stay? 3. Please confirm patient is scheduled for a follow up appointment within the above time frame. DISCHARGE TIME: > 30 minutes D/W TCC SIGNED: Diamante Schroeder MD 08/10/2024, 2:18 PM documented in this encounter [facility] 08-10-2024 Note [facility] 08-10-2024 Nurse Note Patient [facility]. Report called to santa. Continuity of Care complete, and a copy provided in transport packet. IV removed Transportation robert shirley scheduled to transport patient to facility. Patient left with all belongings. [facility] 08-10-2024 Nurse Note Patient discharged to [facility]. Report called to santa. Continuity of Care complete, and a copy provided in transport packet. IV removed Transportation robert shirley scheduled to transport patient to facility. Patient left with all belongings. Pt denies pain and discomfort at this time Pt voiced 0 issues and or concerns at this time Pt call light and personal items noted to be within reach Safety maintained 0815-Pt denies pain and discomfort at this time Pt voiced 0 issues and or concerns at this time 0915-pt took all am meds with no issues 1115-Pt denies pain and discomfort at this time Pt voiced 0 issues and or concerns at this time 1515-Pt denies pain and discomfort at this time Pt voiced 0 issues and or concerns at this time 1815-end of shift rounding completed at this time Pt denies pain and discomfort at this time Pt voiced 0 issues and or concerns at this time Pt call light and personal items noted to be within reach Safety maintained Pt refused bloodwork multiple times throughout night, benefits of daily bloodwork explained to pt. Unable to collect bloodwork, provider notified. documented in this encounter [facility] 08-10-2024 Miscellaneous Notes Patient Choice Patient Name: JESSY MCKEON Date of : 1965 All Providers Sent Referral Name: [facility] Address: [address] [place] [address] [facility] via Careport per TCC request. Electronically signed by [facility] Lukasz Mcdaniels Discharge order noted. CM portion of IRASEMA updated. Task sent to [facility] to send discharge paperwork to [facility]. SW arranging transportation. RN aware. Pt dc to [facility]- [phone] SW asked to arrange transport. Trip requested thru Round Trip. Trip claimed by Robert Sánchez for 1330 Pt aware. SW notified mother, Pita SW notified RN, community board member and [facility] liaison. SW left message for RN at [facility] [employer] [place]. Spoke with Pita, the patients mother, agreeable with [facility]. Secure chat Dr Schroeder, patient is ready today. [facility] school superintendent, Corine is following. Care Management Progress Note [employer] school superintendent following for DC, hopefully today. From [place] in [place]. Will call Pita, mother later, called her last night and left a message. Length of Stay (Days): 7 GMLOS: 2.6 Problem: Knowledge Deficit Goal: Patient/family/caregiver demonstrates understanding of disease process, treatment plan, medications, and discharge instructions Outcome: Progressing Problem: Potential for Falls Goal: I will remain free of falls Outcome: Progressing Problem: Discharge Barriers Goal: My discharge needs are met Outcome: Progressing Problem: Excessive Fluid Volume Goal: Fluid and electrolyte balance are achieved/maintained Outcome: Progressing Problem: Potential for Compromised Skin Integrity Goal: Skin Integrity is Maintained or Improved Outcome: Progressing Goal: Nutritional status is improving Outcome: Progressing Problem: Urinary Incontinence Goal: Perineal skin integrity is maintained or improved Outcome: Progressing Care Management Progress Note [facility]phrology [facility]. [facility] for [facility]. From [place] in [place]. Length of Stay (Days): 6 GMLOS: 2.6 Problem: Knowledge Deficit Goal: Patient/family/caregiver demonstrates understanding of disease process, treatment plan, medications, and discharge instructions Outcome: Progressing Problem: Potential for Falls Goal: I will remain free of falls Outcome: Progressing Problem: Discharge Barriers Goal: My discharge needs are met Outcome: Progressing Problem: Excessive Fluid Volume Goal: Fluid and electrolyte balance are achieved/maintained Outcome: Progressing Problem: Potential for Compromised Skin Integrity Goal: Skin Integrity is Maintained or Improved Outcome: Progressing Goal: Nutritional status is improving Outcome: Progressing Problem: Urinary Incontinence Goal: Perineal skin integrity is maintained or improved Outcome: Progressing Problem: Knowledge Deficit Goal: Patient/family/caregiver demonstrates understanding of disease process, treatment plan, medications, and discharge instructions Outcome: Progressing Problem: Potential for Falls Goal: I will remain free of falls Outcome: Progressing Problem: Discharge Barriers Goal: My discharge needs are met Outcome: Progressing Problem: Knowledge Deficit Goal: Patient/family/caregiver demonstrates understanding of disease process, treatment plan, medications, and discharge instructions Outcome: Progressing Problem: Potential for Falls Goal: I will remain free of falls Outcome: Progressing Problem: Discharge Barriers Goal: My discharge needs are met Outcome: Progressing Problem: Excessive Fluid Volume Goal: Fluid and electrolyte balance are achieved/maintained Outcome: Progressing Problem: Potential for Compromised Skin Integrity Goal: Skin Integrity is Maintained or Improved Outcome: Progressing Goal: Nutritional status is improving Outcome: Progressing Problem: Urinary Incontinence Goal: Perineal skin integrity is maintained or improved Outcome: Progressing Referral placed to REHAB - [facility] via Careport per TCC request. Await review and response regarding ability to accept. TCC notified. Problem: Knowledge Deficit Goal: Patient/family/caregiver demonstrates understanding of disease process, treatment plan, medications, and discharge instructions Outcome: Progressing Problem: Potential for Falls Goal: I will remain free of falls Outcome: Progressing Problem: Discharge Barriers Goal: My discharge needs are met Outcome: Progressing Problem: Excessive Fluid Volume Goal: Fluid and electrolyte balance are achieved/maintained Outcome: Progressing Problem: Potential for Compromised Skin Integrity Goal: Skin Integrity is Maintained or Improved Outcome: Progressing Goal: Nutritional status is improving Outcome: Progressing Problem: Urinary Incontinence Goal: Perineal skin integrity is maintained or improved Outcome: Progressing [employer] school superintendent stated they would take patient. Task sent via Careport to [facility] to place [facility]. , SW will place Amb request in Round Trip as Will Call for [facility]. Trip can be edited if pt not able to go to [facility]. Spoke with patient, Stated [facility], will have [employer] [facility] aware. [place] SNF [place] SW following and will update [place] SW reviewed media- no DPOA on file. SW checked probate court- ( [facility]) no results of guardianship. Care Management Progress Note Patient was from [place] agreed to SNF. Has list, will stop by today and get choices. Length of Stay (Days): 4 GMLOS: 2.6 Problem: Knowledge Deficit Goal: Patient/family/caregiver demonstrates understanding of disease process, treatment plan, medications, and discharge instructions Outcome: Progressing Problem: Potential for Falls Goal: I will remain free of falls Outcome: Progressing Problem: Discharge Barriers Goal: My discharge needs are met Outcome: Progressing Problem: Excessive Fluid Volume Goal: Fluid and electrolyte balance are achieved/maintained Outcome: Progressing Problem: Potential for Compromised Skin Integrity Goal: Skin Integrity is Maintained or Improved Outcome: Progressing Goal: Nutritional status is improving Outcome: Progressing Problem: Urinary Incontinence Goal: Perineal skin integrity is maintained or improved Outcome: Progressing Pt is from assisted living level of care. PT recommending SNF. OT eval pending.TCC spoke to pt at bedside. She is agreeable to SNF. TCC provided her with list. Said she needs help to pick choices. Told TCC to call mother to help. TCC called and left HIPAA VM with mother Pita at this time. TCC updated SW as [place] is normally from [place] LOC. Plan is SNF TBD. TCC will follow for SNF choices. Pt from [facility] in [place]. SW called and spoke with nurse. Pt is a one person assist for dressing bathing, etc. Pt was able to use a walker by herself to get meals and meds. Sometimes pt does not want to walk to get meals so thy bring them to her. Pt will need to be a one person assist to return. SW will follow. Problem: Knowledge Deficit Goal: Patient/family/caregiver demonstrates understanding of disease process, treatment plan, medications, and discharge instructions Outcome: Progressing Problem: Potential for Falls Goal: I will remain free of falls Outcome: Progressing Problem: Knowledge Deficit Goal: Patient/family/caregiver demonstrates understanding of disease process, treatment plan, medications, and discharge instructions Outcome: Progressing Problem: Potential for Falls Goal: I will remain free of falls Outcome: Progressing Problem: Discharge Barriers Goal: My discharge needs are met Outcome: Progressing Problem: Excessive Fluid Volume Goal: Fluid and electrolyte balance are achieved/maintained Outcome: Progressing Problem: Knowledge Deficit Goal: Patient/family/caregiver demonstrates understanding of disease process, treatment plan, medications, and discharge instructions Outcome: Progressing Problem: Potential for Falls Goal: I will remain free of falls Outcome: Progressing Problem: Discharge Barriers Goal: My discharge needs are met Outcome: Progressing Problem: Excessive Fluid Volume Goal: Fluid and electrolyte balance are achieved/maintained Outcome: Progressing Problem: Knowledge Deficit Goal: Patient/family/caregiver demonstrates understanding of disease process, treatment plan, medications, and discharge instructions Outcome: Progressing Problem: Potential for Falls Goal: I will remain free of falls Outcome: Progressing Problem: Discharge Barriers Goal: My discharge needs are met Outcome: Progressing Problem: Excessive Fluid Volume Goal: Fluid and electrolyte balance are achieved/maintained Outcome: Progressing Problem: Knowledge Deficit Goal: Patient/family/caregiver demonstrates understanding of disease process, treatment plan, medications, and discharge instructions 08/04/2024 0419 by Afua Morales RN Outcome: Progressing 08/03/2024 223 by Afua Morales RN Outcome: Progressing Problem: Potential for Falls Goal: I will remain free of falls 08/04/2024418 by Afua Morales RN Outcome: Progressing 08/03/20242236 by Afua Morales RN Outcome: Progressing Problem: Discharge Barriers Goal: My discharge needs are met 08/04/2024 041 by Afua Morales RN Outcome: Progressing 08/03/20242236 by Afua Morales RN Outcome: Progressing Problem: Excessive Fluid Volume Goal: Fluid and electrolyte balance are achieved/maintained 08/04/2024 0419 by Afua Morales RN Outcome: Progressing 08/03/20242236 by Afua Morales RN Outcome: Progressing Problem: Knowledge Deficit Goal: Patient/family/caregiver demonstrates understanding of disease process, treatment plan, medications, and discharge instructions Outcome: Progressing Problem: Potential for Falls Goal: I will remain free of falls Outcome: Progressing Problem: Discharge Barriers Goal: My discharge needs are met Outcome: Progressing Problem: Excessive Fluid Volume Goal: Fluid and electrolyte balance are achieved/maintained Outcome: Progressing documented in this encounter [facility] 08-10-2024 Note Formatting of this n ote might be different from the original. Patient Choice Patient Name: JESSY MCKEON Date of : 1965 All Providers Sent Referral Name: [facility] Address: [address] [place] [address] [facility] 08-10-2024 Note Formatting of this n ote might be different from the original. Patient Choice Patient Name: JESSY MCKEON Date of : 1965 All Providers Sent Referral Name: [facility] Address: [address] [place] [address] [facility] 08-10-2024 Note Formatting of this n ote might be different from the original. MAR & Discharge med list transmitted to [facility] via Careport per TCC request. Electronically signed by [facility] Lukasz Mcdaniels [facility] 08-10-2024 Note Formatting of this n ote might be different from the original. MAR & Discharge med list transmitted to [facility] via Careport per TCC request. Electronically signed by [facility] Lukasz Mcdaniels [facility] 08-10-2024 Note Formatting of this n ote might be different from the original. Discharge order noted. CM portion of IRASEMA updated. Task sent to [facility] to send discharge paperwork to [facility]. SW arranging transportation. RN aware. [facility] 08-10-2024 Note Formatting of this n ote might be different from the original. Discharge order noted. CM portion of IRASEMA updated. Task sent to [facility] to send discharge paperwork to [facility]. SW arranging transportation. RN aware. [facility] 08-10-2024 Note Formatting of this n ote might be different from the original. Pt dc to [facility] [phone] SW asked to arrange transport. Trip requested thru Round Trip. Trip claimed by Tekmi for 1330 Pt aware. SW notified motherPita SW notified RN, community board member and [facility] liaison. SW left message for RN at [facility]. [facility] [employer] 08-10-2024 Note Formatting of this n ote might be different from the original. Pt dc to [facility] [phone] SW asked to arrange transport. Trip requested thru Round Trip. Trip claimed by Robert Sánchez for 1330 Pt aware. SW notified motherPita SW notified RN, community board member and [facility] liaison. SW left message for RN at [facility] [place]. [facility] 08-10-2024 Note Formatting of this n ote might be different from the original. Spoke with Pita, the patients mother, agreeable with [facility]. Secure chat Dr Schroeder, patient is ready today. [facility]izar[facility] following. [facility] 08-10-2024 Note Formatting of this n ote might be different from the original. Spoke with Pita, the patients mother, agreeable with [facility]. Secure chat Dr Schroeder, patient is ready today. [facility] pizarro is following. [facility] 08-10-2024 History of Present illness Narrative Nutrition update completed. Chart reviewed. 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 Blanca Jackson DT Hospitalist Progress Note 08/09/2024 Assessment/Plan: Data: (CAT1) Reviewed 2 notes from different specialty or health system (each=1). (CAT1) Reviewed 2 labs/studies ordered by another provider not previously counted (each=1, panels count as 1). (LOW: 2x CAT1 or independent historian MOD: 3x CAT1 or 1x CAT3 EXTENSIVE: 3x CAT1 and 1x CAT3) Acute, acute on chronic, unstable/uncontrolled chronic problems/diagnoses: B/L LE edema Acute renal insufficiency/CKD IV (baseline Cr ~ 2.5) Renal US: No hydro Nephrology consulted Renal function now around baseline Hyponatremia Noncompliant with fluid restriction Appreciate nephrology Failure to thrive PT/OT recommending SNF, patient agreeable E. coli UTI Completed ceftriaxone 08/08 Follow urine culture Chronic pain Per previous provider: [facility] reviewed, takes Klonopin 0.5 mg BID PRN, last Butrans fill was May 2024 for only 30 days, insurance quit covering so it was stopped Started PRN Vicodin Stable chronic problems affecting care, new non-acute diagnoses: Hypothyroidism Depression and anxiety Asperger syndrome Debility Body mass index is 43.62 kg/m ., BMI Classification: Class 3 obesity (BMI >40.0) Chronic anemia HTN HLD Right foot laterally dislocated second MTP joint and laterally subluxed or dislocated first MTP joint - PT/OT/CM/SW - delirium precautions: increase activity - DVT prophylaxis: heparin and encourage ambulation Discharge Disposition: Anticipate DC to [facility] rehab pending acceptance Total time spent (which include face to face and non face to face encounters) : 36 minutes Complexity: Acute illness with systemic symptoms (MOD). Multiple stable chronic illnesses (MOD). Risk: Admission to hospital-level care was considered or occurred (HIGH). Advance Directive: Full Code Toxic drug monitoring/narrow therapeutic index drug monitoring : # Drug name : # Route administered: # Method of monitoring: Subjective: Admit Date: 08/03/2024 PCP: Edith Pierce MD Room#: W5-525/W5-525 B Brief Hospital course: Patient is a 59-year-old female with history of CKD 4, HTN, HLD, obesity, as Buerger's syndrome, bipolar disorder, depression, anxiety, hypothyroidism, debility, recent evaluation at [facility] for mechanical fall with right foot contusion/swelling. She presented to [facility] 08/03 from for generalized bodyaches, leg edema. Admitted for further workup and evaluation, mild JOSE A/CKD. UA was suggestive of UTI, patient started on IV Rocephin. Nephrology consulted for CKD for optimization. Interval History: Doing well today, no new complaints Adult diet Regular; Low Potassium (Less than 3000 mg/day) 24HR INTAKE/OUTPUT: Intake/Output Summary (Last 24 hours) at 08/09/2024 1420 Last data filed at 08/09/2024 1100 Gross per 24 hour Intake 740 ml Output 550 ml Net 190 ml Past Medical History: Past Medical History: Diagnosis Date Acid reflux Anxiety Arthritis Asperger syndrome Bipolar disorder (HCC) Chronic kidney disease stage 4 kidney failure Chronic pain Depression Edema of both legs GERD (gastroesophageal reflux disease) Hemorrhoids Hyperlipidemia Hypertension Hypothyroidism Iron (Fe) deficiency anemia Nephrogenic diabetes insipidus (HCC) Pain management Retention of urine, unspecified Sciatica SOB (shortness of breath) GRANT Type II or unspecified type diabetes mellitus without mention of complication, not stated as uncontrolled (HCC) Urinary incontinence nightly LABS: CBC: Recent Labs 08/07/24 0000 08/08/24 0005 08/09/24 0408 WBC 8.9 8.3 6.7 RBC 2.63* 2.75* 2.79* HGB 8.4* 8.7* 8.8* HCT 25.8* 26.7* 28.1* MCV 98.1 97.1 100.7* RDW 13.4 13.6 13.7 PLT 265 296 288 BMP: Recent Labs 08/07/24 0000 08/08/24 0005 08/09/24 0408 NA 133* 130* 131* K 4.7 5.4* 4.9 CL 103 100 101 CO2 23 24 23 BUN 34* 32* 33* CREATININE 2.89* 2.73* 2.79* GLUCOSE 114* 94 81 CALCIUM 8.6 8.7 8.7 ANIONGAP 7 6 7 LIVER PROFILE:No results for input(s): "AST", "ALT", "BILITOT", "ALKPHOS", "PROT" in the last 72 hours. No lab exists for component: LABALBU PT/INR: No results for input(s): "PROTIME", "INR" in the last 72 hours. CARDIAC ENZYMES: No results for input(s): "TROPONINI" in the last 72 hours. Procalcitonin: No results found for: "PROCAL" COVID-19 PCR: No results for input(s): "COVID19" in the last 72 hours. Objective: Vitals: BP 121/68 (BP Location: Left arm, Patient Position: Lying) Pulse 63 Temp 36.4 C (97.6 F) (Temporal) Resp 20 Ht 5' 5" (1.651 m) Wt 260 lb 9.3 oz (118 kg) SpO2 98% BMI 43.36 kg/m Pulse Ox: SpO2 Av.6 % Min: 96 % Max: 100 % Supplemental O2: Physical Exam Vitals and nursing note reviewed. Constitutional: Appearance: Normal appearance. Cardiovascular: Rate and Rhythm: Normal rate. Pulmonary: Effort: Pulmonary effort is normal. Abdominal: General: Abdomen is flat. Neurological: Mental Status: She is alert. Psychiatric: Mood and Affect: Mood normal. Behavior: Behavior normal. Medications: acetaminophen, 650 mg, Oral, TID amLODIPine, 5 mg, Oral, Daily cholecalciferol, 1,000 Units, Oral, Daily divalproex, 250 mg, Oral, TID WC DULoxetine, 60 mg, Oral, Daily heparin, 5,000 Units, SubCUTAneous, 2 times per day hydrALAZINE, 50 mg, Oral, TID lamoTRIgine, 200 mg, Oral, Nightly levothyroxine, 125 mcg, Oral, Daily metoprolol tartrate, 100 mg, Oral, BID pantoprazole, 40 mg, Oral, qAM AC risperiDONE, 6 mg, Oral, Nightly rosuvastatin, 10 mg, Oral, Daily tamsulosin, 0.4 mg, Oral, Daily traZODone, 200 mg, Oral, Nightly Extended Emergency Contact Information Primary Emergency Contact: Pita Jara Relation: Parent Preferred language: Northern Irish Mechanism Inspector needed? No Secondary Emergency Contact: Mamadou Jara Relation: Father Kumaryoav Olga Schroeder MD Division of Hospitalist Medicine [facility] Images from the original note were not included. OCCUPATIONAL THERAPY [facility] Treatment Note Name/MRN: Jessy Mckeon ([id number]) Date of : 1965 Age: 59 y.o. [facility] B Discharge Recommendation: Snf Facility Prior Level of Function Prior Level of ADL Function: Required Assist Prior Level of Mobility: Required Assist; Device: Front wheeled walker, Rollator, and Wheelchair - manual Prior Level of Transfers: Required Assist Assessment Pt currently needs assist for bed mobility, ADL. Suggest SNF level therapies to promote return to baseline function. Subjective Pt in bed, worked with PT earlier; agrees to OT as requested for insurance precert. Pain: "everywhere", "rheumatoid arthritis in all my joints" Medical Precautions: No active isolations Proper PPE donned/doffed in accordance with facility standards. Fall Risk: [place] Fall Risk Score: 100 (High Risk) Family/Caregiver Present: none Objective ADLs LE Dressing: Max Assist Grooming: Supervision, with encouragement, while seated EOB Bed Mobility Supine to sit: Min Assist Sit to supine: Min Assist Transfers/Mobility 3 partial stands to scoot hips toward HOB, min assist. Pt denied stand balance tasks or back up to chair this session. Plan Continue acute OT per plan of care. Safety/Education Safety Safety Devices in place: call light within reach, left in bed, and no alarms engaged upon entry Restraints: No Education Bed mobility Will need ongoing education. AM-PAC AM-PAC Inpatient Daily Activity Raw Score: 14 ADL Inpatient CMS G-Code Modifier: CK Goals Patient Stated Goal: No specific goal stated this session Encounter Problems Encounter Problems (Active) Balance Patient will maintain static/ dynamic standing balance with SBA in order to demonstrate decreased risk of falling. (Not Addressed) Start: 08/06/24 Expected End: 09/03/24 Balance Patient will maintain dynamic sitting balance with mod I in order to demonstrate improved postural control and prepare for out of bed mobility. (Progressing) Start: 08/06/24 Dressing Upper Extremities Patient will complete upper body dressing using adaptive strategies with mod I. (Not Addressed) Start: 08/06/24 Expected End: 09/03/24 Dressings Lower Extremities Patient will dress lower body using adaptive strategies with mod I. (Slowly Progressing) Start: 08/06/24 Expected End: 09/03/24 Grooming Patient will complete daily grooming tasks while standing at sink with SBA. (Progressing) Start: 08/06/24 Expected End: 09/03/24 Mobility Patient will demonstrate functional ambulation using LRD and with SBA. (Not Addressed) Start: 08/06/24 Expected End: 09/03/24 Toileting Patient will complete toileting tasks at standard toilet with SBA. (Not Addressed) Start: 08/06/24 Expected End: 09/03/24 Transfers Patient will complete functional transfer with least restrictive device with SBA in order to prepare for ambulation. (Not Addressed) Start: 08/06/24 Expected End: 09/03/24 Therapy Time Individual Co-treatment Time In 1258 Time Out 1308 Minutes 10 Timed Code Treatment Minutes: (Self--1) JOCY Hyde Cosigned by Gosia Espinosa OT at 08/09/2024 2:38 PM EST Images from the original note were not included. PHYSICAL THERAPY [facility] Treatment Note Name/MRN: Jessy Mckeon ([id number]) Date of : 1965 Age: 59 y.o. Room/Bed: W5-525/W5-525 B Discharge Recommendation: Snf Facility Equipment Needed: No Prior Level of Function Prior Level of ADL Function: Required Assist Prior Level of Mobility: Required Assist; Device: Front wheeled walker Prior Level of Transfers: Required Assist Assessment Patient was in bed at the onset of this session. She is pleasantly demanding. She likes to be called "Nidhi". She is from an [place] in [place], has bilateral LE edema. She has Aspergers syndrome as well as Buerger's syndrome. She was willing to get up to the bedside chair, but did not really want to walk. When her lunch arrived, she was wanting to eat it, not ambulate. She required assist with opening of her apple juice and her silverware package. She has bipolar and schizoaffective disorder. She needs to get to ambulation, but declined at this time. Recommend SNF at discharge. Subjective Pt was in the bed at onset and in the chair at the end. Her motivation for ambulation is low. Pain: Pt denies any current pain. Medical Precautions: No active isolations Proper PPE donned/doffed in accordance with facility standards. Fall Risk: Shelton Fall Risk Score: 100 (High Risk) Precautions/Restrictions: Lines/Drains/Airways: PIV Fall Precautions Overall Cognitive Status: Exceptions - Following commands: follows one step commands with repetition - Memory: decreased recall of biographical information - Initiation: requires cues for all - responses to questions to not address question. Overall Orientation Status: Oriented to Place and Oriented to Person Family/Caregiver Present: none Objective Bed Mobility Supine to sit: Min Assist Rolling to left: Min Assist Scooting: Min Assist Transfers/Mobility Sit to stand: Min Assist Stand to sit: Min Assist Device(s) used: Front wheeled walker and does not pay attention to safety cues, insisted on pulling up on the walker to stand. Ambulation Ambulation 1 Assistive device(s) used: Front wheeled walker Assist level: Min Assist Distance (ft): 5' Quality of gait: antalgic, narrow MALDONADO, slow meenakshi Balance During Session: Posture: fair Sitting - Static: Supervision Sitting - Dynamic: Supervision Standing - Static: Min Assist Standing - Dynamic: Min Assist Balance: fair Plan Continue acute PT per plan of care. Safety/Education Safety Safety Devices in place: call light within reach, left in chair, gait belt, patient at risk for falls, and nurse notified Restraints: No Education Education Given To: patient Education Provided: PT Role, Gait Training, Precautions, Transfer Training, Equipment, and Discharge Recommendations Education Method: Verbal and Demonstration Barriers to Learning: Cognition Education Outcome: Continued Education Needed Outcome Measures AM-PAC AM-PAC Inpatient Mobility Raw Score (No Stairs) : 16 JH-HLM -HLM Score: Walked 25 ft or more (i.e. walked outside of room) Goals Patient Stated Goal: To get stronger, walk better. Encounter Problems Encounter Problems (Active) Balance Patient will maintain dynamic standing balance for 5 minutes with CGA in order to demonstrate decreased risk of falling. (Not Progressing) Start: 08/04/24 Expected End: 09/01/24 Patient will maintain dynamic sitting balance for 10 minutes with modified independence in order to demonstrate improved postural control and prepare for out of bed mobility. (Progressing) Start: 08/04/24 Expected End: 09/01/24 Mobility Patient will ambulate 30 feet with CGA and least restrictive device in order to improve safety and independence with mobility. (Not Progressing) Start: 08/04/24 Expected End: 09/01/24 Transfers Patient will perform bed mobility with SBA in order to improve independence and prepare for out of bed mobility. (Progressing) Start: 08/04/24 Expected End: 09/01/24 Patient will complete sit to stand transfer with SBA to least restrictive assistive device in order to improve safety and prepare for out of bed mobility. (Progressing) Start: 08/04/24 Expected End: 09/01/24 Therapy Time Individual Co-treatment Time In 1235 Time Out 1250 Minutes 15 Timed Code Treatment Minutes: 15 Minutes Aspen Evans PT Hospitalist Progress Note 08/08/2024 Assessment/Plan: Data: (CAT1) Reviewed 2 notes from different specialty or health system (each=1). (CAT1) Reviewed 2 labs/studies ordered by another provider not previously counted (each=1, panels count as 1). (LOW: 2x CAT1 or independent historian MOD: 3x CAT1 or 1x CAT3 EXTENSIVE: 3x CAT1 and 1x CAT3) Acute, acute on chronic, unstable/uncontrolled chronic problems/diagnoses: B/L LE edema JOSE A/CKD IV (baseline Cr ~ 2.5) Renal US: No hydro Nephrology consulted Renal function now around baseline Hyponatremia Noncompliant with fluid restriction Appreciate nephrology Failure to thrive PT/OT recommending SNF, patient agreeable E. coli UTI Completed ceftriaxone 08/08 Follow urine culture Chronic pain Per previous provider: OARRS reviewed, takes Klonopin 0.5 mg BID PRN, last [facility]rans fill was May 2024 for only 30 days, insurance quit covering so it was stopped Started PRN Vicodin Stable chronic problems affecting care, new non-acute diagnoses: Hypothyroidism Depression and anxiety Asperger syndrome Debility Body mass index is 43.62 kg/m ., BMI Classification: Class 3 obesity (BMI >40.0) Chronic anemia HTN HLD Right foot laterally dislocated second MTP joint and laterally subluxed or dislocated first MTP joint - PT/OT/CM/SW - delirium precautions: increase activity - DVT prophylaxis: heparin and encourage ambulation Discharge Disposition: Anticipate DC to SNF next 1-3 days pending clinical improvement, outbound sales consultant recommendations Total time spent (which include face to face and non face to face encounters) : 36 minutes Complexity: Acute illness with systemic symptoms (MOD). Multiple stable chronic illnesses (MOD). Risk: Admission to hospital-level care was considered or occurred (HIGH). Advance Directive: Full Code Toxic drug monitoring/narrow therapeutic index drug monitoring : # Drug name : # Route administered: # Method of monitoring: Subjective: Admit Date: 08/03/2024 PCP: Edith Pierce MD Room#: W5-525/W5-525 B Brief Hospital course: Patient is a 59-year-old female with history of CKD 4, HTN, HLD, obesity, as Buerger's syndrome, bipolar disorder, depression, anxiety, hypothyroidism, debility, recent evaluation at [facility] for mechanical fall with right foot contusion/swelling. She presented to [place] ER 08/03 from SNF for generalized bodyaches, leg edema. Admitted for further workup and evaluation, mild JOSE A/CKD. UA was suggestive of UTI, patient started on IV Rocephin. Nephrology consulted for CKD for optimization. Interval History: Laying in bed Overall feeling better Eating and drinking okay Adult diet Regular; Low Potassium (Less than 3000 mg/day) 24HR INTAKE/OUTPUT: Intake/Output Summary (Last 24 hours) at 08/08/2024 1340 Last data filed at 08/08/2024 0731 Gross per 24 hour Intake 1675 ml Output 500 ml Net 1175 ml Past Medical History: Past Medical History: Diagnosis Date Acid reflux Anxiety Arthritis Asperger syndrome Bipolar disorder (HCC) Chronic kidney disease stage 4 kidney failure Chronic pain Depression Edema of both legs GERD (gastroesophageal reflux disease) Hemorrhoids Hyperlipidemia Hypertension Hypothyroidism Iron (Fe) deficiency anemia Nephrogenic diabetes insipidus (HCC) Pain management Retention of urine, unspecified Sciatica SOB (shortness of breath) GRANT Type II or unspecified type diabetes mellitus without mention of complication, not stated as uncontrolled (HCC) Urinary incontinence nightly LABS: CBC: Recent Labs 08/06/24 0410 08/07/24 0000 08/08/24 0005 WBC 8.3 8.9 8.3 RBC 2.89* 2.63* 2.75* HGB 9.0* 8.4* 8.7* HCT 28.4* 25.8* 26.7* MCV 98.3 98.1 97.1 RDW 13.2 13.4 13.6 PLT 271 265 296 BMP: Recent Labs 08/06/24 0410 08/07/24 0000 08/08/24 0005 NA 130* 133* 130* K 4.3 4.7 5.4* CL 101 103 100 CO2 22 23 24 BUN 30* 34* 32* CREATININE 3.13* 2.89* 2.73* GLUCOSE 80 114* 94 CALCIUM 8.6 8.6 8.7 ANIONGAP 7 7 6 LIVER PROFILE:No results for input(s): "AST", "ALT", "BILITOT", "ALKPHOS", "PROT" in the last 72 hours. No lab exists for component: LABALBU PT/INR: No results for input(s): "PROTIME", "INR" in the last 72 hours. CARDIAC ENZYMES: No results for input(s): "TROPONINI" in the last 72 hours. Procalcitonin: No results found for: "PROCAL" COVID-19 PCR: No results for input(s): "COVID19" in the last 72 hours. Objective: Vitals: BP 129/74 (BP Location: Left arm, Patient Position: Sitting) Pulse 78 Temp 36.1 C (96.9 F) (Temporal) Resp 18 Ht 5' 5" (1.651 m) Wt 262 lb 5.6 oz (119 kg) SpO2 98% BMI 43.66 kg/m Pulse Ox: SpO2 Av % Min: 96 % Max: 98 % Supplemental O2: Physical Exam Vitals and nursing note reviewed. Constitutional: Appearance: Normal appearance. Cardiovascular: Rate and Rhythm: Normal rate. Pulmonary: Effort: Pulmonary effort is normal. Abdominal: General: Abdomen is flat. Neurological: Mental Status: She is alert. Psychiatric: Mood and Affect: Mood normal. Behavior: Behavior normal. Medications: acetaminophen, 650 mg, Oral, TID amLODIPine, 5 mg, Oral, Daily cholecalciferol, 1,000 Units, Oral, Daily divalproex, 250 mg, Oral, TID WC DULoxetine, 60 mg, Oral, Daily heparin, 5,000 Units, SubCUTAneous, 2 times per day hydrALAZINE, 50 mg, Oral, TID lamoTRIgine, 200 mg, Oral, Nightly levothyroxine, 125 mcg, Oral, Daily metoprolol tartrate, 100 mg, Oral, BID pantoprazole, 40 mg, Oral, qAM AC risperiDONE, 6 mg, Oral, Nightly rosuvastatin, 10 mg, Oral, Daily tamsulosin, 0.4 mg, Oral, Daily traZODone, 200 mg, Oral, Nightly Extended Emergency Contact Information Primary Emergency Contact: Pita Jara Mobile Relation: Parent Preferred language: Northern Irish Mechanism Inspector needed? No Secondary Emergency Contact: Mmaadou Jara Relation: Father Kumaryoav Olga Schroeder MD Division of Hospitalist Medicine [facility] Images from the original note were not included. Nephrology Progress Note Patient: Jessy Mckeon Room number: W5-525/W5-525 B Date of Admit: 08/03/2024 LOS: 5 days Referring physician: Diamante Schroeder MD Outpatient Leach Cell Operator: Eva Andre MD Reason for Consult: Asked to see/evaluate by primary service for opinion regarding: abnormal renal labs. Assessment/Plan: 1. JOSE A on CKD stage IV with proteinuria-baseline Scr 2.4 mg/dL in 2022-early 2023. Recent admit in Jun 2024 with Scr 2.6-2.8 mg/dL. [place] related to prior lithium use, tubulointerstitial disease and history of obstructive uropathy. On this admit (08/01) Cr 3.18 ->2.8 -> 3.13 -> 2.89, ua with numerous RBC, WBC (urine cs pending); Fena 1.4 (more suggestive of intrinsic/ATN). No obstruction on us (though L kidney not visualizes). Denies overt uremic sx. Serum Cr has returned to baseline at 2.73 as of 08/08/24. 2. 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 Urine osmolality usually fixed around 116-118. Now with hyponatremia with serum Na still decreased at 130 today - patient adamantly refused having a fluid restriction added today. 3. Hx of psychogenic water drinking, ? Related to meds. 4. Hyperkalemia - serum K was mildly increased to 5.4 today. Added low K diet and to dose with 5 g Lokelma. 5. Vitamin D deficiency-started on supplemennt 6. Secondary hyperparathyroidism - recheck after correction of vitamin D deficit. 7. Anemia due to CKD and relative iron deficiency. Received Venofer 400 mg load in Jun 2024. Hgb at 8.7, stable, fe 61, tsat 48, ferritin 391. Defer pRBC needs to primary 8. Suspected UTI, on ceftriaxone Medication dose adjustment: CrCl < 25 ml/min. Pending placement to new SNF We will continue to follow along peripherally. Please text/call/page with any questions or concerns. Kavon Galo, Nephrology [facility] ([facility]) Pager: [phone] Office Office Electronically Signed on 08/08/2024 at 12:55 PM HPI: Jessy Mckeon is a 59 y.o. female with a past medical history of: CKD stage IV, bipolar disorder, prior lithium use > 20 years, nephrogenic DI, hypothyroidism, vitamin D deficiency, major depression s/p ECT remotely, who was admitted by,Mariann Byrnes MD, for Peripheral edema [R60.0] Failure to thrive in adult [R62.7] Fluid overload [E87.70] Hypervolemia, unspecified hypervolemia type [E87.70] Anemia, unspecified type [D64.9] Chronic kidney disease, unspecified CKD stage [N18.9]. Recent [place] ER evaluation after mechanical fall with R foot contusion/swelling. Sent to [facility] ER for generalized body aches, leg edema, and patient claim of current facility being unable to attend to her needs. BNP 784, weight 262 lbs (was 275 lbs in Jun 2024). Consulted for JOSE A on CKD - baseline Scr 2.4 mg/dL in 2022-early 2023. Recent admit in Jun 2024 with Scr 2.6-2.8 mg/dL. [place] related to prior lithium use, tubulointerstitial disease and history of obstructive uropathy. On this admit (08/01) Cr 3.18 ->2.8 -> 3.13 then down to 2.89 today. No overt hypotensive episode, denies nausea/vomiting/hiccups/pruritus Patient was seen and examined, and she requested assistance in locating her missing cell phone. She was very insistent on not having a fluid restriction and did not want to even consider having a liberal restriction placed noting that this was "bullshit" and that she "won't " from her electrolyte derangements. She admits to constipation. Physical Exam: Vitals: 08/08/24 0159 08/08/24 0405 08/08/24 0730 08/08/24 0754 BP: 133/77 119/65 129/74 BP Location: Left arm Patient Position: Lying Sitting Pulse: 66 76 78 Resp: Temp: 36.7 C (98 F) 36.3 C (97.4 F) 36.1 C (96.9 F) TempSrc: Temporal Temporal Temporal SpO2: 96% 97% 98% Weight: 119 kg (262 lb 5.6 oz) Height: Today's weight: Weight: 119 kg (262 lb 5.6 oz) Admission weight: Weight: 125 kg (275 lb) Wt Readings from Last 3 Encounters: 08/08/24 119 kg (262 lb 5.6 oz) 06/28/24 125 kg (275 lb 9.6 oz) 06/14/24 125 kg (276 lb) Estimated body mass index is 43.66 kg/m as calculated from the following: Height as of this encounter: 1.651 m (5' 5"). Weight as of this encounter: 119 kg (262 lb 5.6 oz). Intake/Output Summary (Last 24 hours) at 08/08/2024 1249 Last data filed at 08/08/2024 0731 Gross per 24 hour Intake 1675 ml Output 500 ml Net 1175 ml FIO2 needs: No data found. General Appearance no acute distress, comfortable appearing, looks stated age. Alert and oriented x 3, chronically ill appearing HEENT Neck anicteric sclera, moist mucus membranes, normal external ears/nares, no facial edema Supple neck, midline trachea without tracheal deviation Chest symmetric, normal shape/expansion, no chest wall/sternal tenderness Heart RRR, no audible pericardial rubs Lungs clear to auscultation bilaterally, unlabored respirations without conversational dyspnea, no accessory muscle use, room air Abdomen Skin soft without distension, normal bowel sounds, no ttp no rash or subcutaneous nodules, warm and dry skin with good turgor Musculoskeletal no synovitis or joint effusions noted, trace L leg edema no infante catheter present Neurologic no resting tremor. Able to follow commands. Psychiatric apporpriate mood and affect, insight and judgment intact. Memory recall poor LABS: Recent Labs 08/06/24 0410 08/07/24 0000 08/08/24 0005 WBC 8.3 8.9 8.3 HGB 9.0* 8.4* 8.7* HCT 28.4* 25.8* 26.7* MCV 98.3 98.1 97.1 PLT 271 265 296 Lab Results Component Value Date IRON 61 08/06/2024 TIBC 126 (L) 08/06/2024 FERRITIN 391 (H) 08/06/2024 Lab Results Component Value Date [id number] 913 04/05/2022 FOLATE >20.0 04/05/2022 Recent Labs 08/06/24 0410 08/07/24 0000 08/08/24 0005 NA 130* 133* 130* K 4.3 4.7 5.4* CL 101 103 100 CO2 BUN 30* 34* 32* CREATININE 3.13* 2.89* 2.73* GLUCOSE 80 114* 94 CALCIUM 8.6 8.6 8.7 PHOS 3.8 -- -- ANIONGAP 7 7 6 Lab Results Component Value Date PTH 161.6 (H) 04/17/2024 VITD25 24 (L) 04/17/2024 Lab Results Component Value Date ALT <6 08/03/2024 AST 20 08/03/2024 Lab Results Component Value Date COLORU Yellow 08/05/2024 CLARITYU Extra Turbid (A) 08/05/2024 GLUCOSEU Normal 08/05/2024 BLOODU 0.03 (A) 08/05/2024 UROBILINOGEN Normal 08/05/2024 Lab Results Component Value Date HEPCAB Not Detected 08/25/2023 Diagnostic Studies: CXR: reviewed in PACS Personally reviewed MARS, labs, radiologic studies and notes. [facility] office: [phone] Pager: [phone] Images from the original note were not included. PHYSICAL THERAPY [facility] Treatment Note Name/MRN: Jessy Mckeon ([id number]) Date of : 1965 Age: 59 y.o. Room/Bed: [facility] B Discharge Recommendation: Snf Facility Equipment Needed: (tbd) Prior Level of Function Prior Level of ADL Function: Required Assist Prior Level of Mobility: Required Assist; Device: Front wheeled walker Prior Level of Transfers: Required Assist Assessment The pt is making progress towards her goals and will continue to benefit from therapy for their functional deficits and to improve her overall functional capacity. She is a fall risk and currently unsafe to return home. SNF is recommended at discharge. Overall endurance is limited and increased time and cues were needed for tasks. Min to mod assist was needed for mobility. Subjective Pt in bed and agreed to PT with encouragement. Pain: pain in Rt hand reported, no rating. Medical Precautions: No active isolations Proper PPE donned/doffed in accordance with facility standards. Fall Risk: Shelton Fall Risk Score: 85 (High Risk) Precautions/Restrictions: Lines/Drains/Airways: PIV Fall Precautions Overall Cognitive Status: Exceptions - Arousal/alertness: appropriate responses to stimuli - Following commands: follows one step commands with increased time and follows one step commands with repetition - Safety judgement: decreased awareness of need for assistance and decreased awareness of need for safety - Problem solving: decreased awareness of errors - Insights: decreased awareness of deficits - Initiation: requires cues for some - Sequencing: requires cues for some Overall Orientation Status: Oriented to Place, Oriented to Time, and Oriented to Person Family/Caregiver Present: none Objective Bed Mobility Supine to sit: Mod Assist Sit to supine: SBA Scooting: Min Assist, to EOB once seated HOB elevated for supine to sit, assist for LE and hand held assist for trunk Transfers/Mobility Sit to stand: Min Assist Stand to sit: Min Assist Stand pivot: Min Assist One trial from EOB with FWW, one trial of sit to stand and partial pivot to BSC with min assist. Pt did not sit on BSC but used shuffle steps and maintained a flexed posture while pivoting to BSC. Device(s) used: Front wheeled walker Balance During Session: Posture: fair Sitting - Static: Supervision Sitting - Dynamic: SBA Standing - Static: Min Assist Standing - Dynamic: Min Assist Pt sat EOB for several minutes with supervision. Pt was able to achieve an upright posture with a FWW and cues. Pt stood for about one minute before sitting down due to fatigue. Pt declined to attempt to ambulate this session due to fatigue. Plan Continue acute PT per plan of care. Safety/Education Safety Safety Devices in place: call light within reach, left in bed, and no alarms engaged upon entry, Restraints: No Education Education Given To: patient Education Provided: PT Role, Plan of Care, and Transfer Training Education Method: Verbal Barriers to Learning: Cognition Education Outcome: Verbalized Understanding and Continued Education Needed Outcome Measures AM-PAC AM-PAC Inpatient Mobility Raw Score (No Stairs) : 13 JH-HLM JH-HLM Score: Static standing (1 or more minutes) Goals Patient Stated Goal: To get stronger Encounter Problems Encounter Problems (Active) Balance Patient will maintain dynamic standing balance for 5 minutes with CGA in order to demonstrate decreased risk of falling. (Progressing) Start: 08/04/24 Expected End: 09/01/24 Patient will maintain dynamic sitting balance for 10 minutes with modified independence in order to demonstrate improved postural control and prepare for out of bed mobility. (Progressing) Start: 08/04/24 Expected End: 09/01/24 Mobility Patient will ambulate 30 feet with CGA and least restrictive device in order to improve safety and independence with mobility. (Not Progressing) Start: 08/04/24 Expected End: 09/01/24 Transfers Patient will perform bed mobility with SBA in order to improve independence and prepare for out of bed mobility. (Progressing) Start: 08/04/24 Expected End: 09/01/24 Patient will complete sit to stand transfer with SBA to least restrictive assistive device in order to improve safety and prepare for out of bed mobility. (Progressing) Start: 08/04/24 Expected End: 09/01/24 Therapy Time Individual Co-treatment Time In 1400 Time Out 1411 Minutes 11 Timed Code Treatment Minutes: 11 Minutes (one FA) Jorge Shetty PT Images from the original note were not included. Nephrology Progress Note Patient: Jessy Mckeon Room number: [id number] B Date of Admit: 08/03/2024 LOS: 4 days Referring physician: Diamante Schroeder MD Outpatient Leach Cell Operator: Eva Andre MD Reason for Consult: Asked to see/evaluate by primary service for opinion regarding: abnormal renal labs. Assessment/Plan: 1. JOSE A on CKD stage IV with proteinuria-baseline Scr 2.4 mg/dL in 2022-early 2023. Recent admit in Jun 2024 with Scr 2.6-2.8 mg/dL. [place] related to prior lithium use, tubulointerstitial disease and history of obstructive uropathy. On this admit (08/01) Cr 3.18 ->2.8 -> 3.13 -> 2.89, ua with numerous RBC, WBC (urine cs pending); Fena 1.4 (more suggestive of intrinsic/ATN). No obstruction on us (though L kidney not visualizes). Denies overt uremic sx 2. 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 Urine osmolality usually fixed around 116-118. 3. Hx of psychogenic water drinking, ? Related to meds. 4. Vitamin D deficiency-started on supplemennt 5. Secondary hyperparathyroidism - recheck after correction of vitamin D deficit. 6. Anemia due to CKD and relative iron deficiency. Received Venofer 400 mg load in Jun 2024. Hgb at 9, stable, fe 61, tsat 48, ferritin 391. Defer pRBC needs to primary 7. Suspected UTI, on ceftriaxone Medication dose adjustment: CrCl < 25 ml/min. Pending placement to new SNF Dr Kavon Galo starts coverage 08/08 Will follow along as directed. Thank you for allowing us to participate in the care of this patient. HPI: Jessy Mckeon is a 59 y.o. female with a past medical history of: CKD stage IV, bipolar disorder, prior lithium use > 20 years, nephrogenic DI, hypothyroidism, vitamin D deficiency, major depression s/p ECT remotely, who was admitted by,Mariann Byrnes MD, for Peripheral edema [R60.0] Failure to thrive in adult [R62.7] Fluid overload [E87.70] Hypervolemia, unspecified hypervolemia type [E87.70] Anemia, unspecified type [D64.9] Chronic kidney disease, unspecified CKD stage [N18.9]. Recent [place] ER evaluation after mechanical fall with R foot contusion/swelling. Sent to [facility] ER for generalized body aches, leg edema, and patient claim of current facility being unable to attend to her needs. BNP 784, weight 262 lbs (was 275 lbs in Jun 2024). Consulted for JOSE A on CKD - baseline Scr 2.4 mg/dL in 2022-early 2023. Recent admit in Jun 2024 with Scr 2.6-2.8 mg/dL. [place] related to prior lithium use, tubulointerstitial disease and history of obstructive uropathy. On this admit (08/01) Cr 3.18 ->2.8 -> 3.13 then down to 2.89 today. No overt hypotensive episode, denies nausea/vomiting/hiccups/pruritus PMHx: Past Medical History: Diagnosis Date Acid reflux Anxiety Arthritis Asperger syndrome Bipolar disorder (HCC) Chronic kidney disease stage 4 kidney failure Chronic pain Depression Edema of both legs GERD (gastroesophageal reflux disease) Hemorrhoids Hyperlipidemia Hypertension Hypothyroidism Iron (Fe) deficiency anemia Nephrogenic diabetes insipidus (HCC) Pain management Retention of urine, unspecified Sciatica SOB (shortness of breath) GRANT Type II or unspecified type diabetes mellitus without mention of complication, not stated as uncontrolled (HCC) Urinary incontinence nightly Past Surgical History: Past Surgical History: Procedure Laterality Date 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 CHOLECYSTECTOMY COLON SURGERY c-diff COLONOSCOPY 03/28/2018 no polyps UPPER GASTROINTESTINAL ENDOSCOPY 03/28/2018 Family History: Family History Problem Relation Name Age of Onset Hypertension Mother Cancer Father Colon cancer Maternal Grandmother Cancer Brother Social History: Social History Socioeconomic History Marital status: Single Spouse name: Not on file Number of children: Not on file Years of education: Not on file Highest education level: Not on file Occupational History Not on file Tobacco Use Smoking status: Former Smokeless tobacco: Never Vaping Use Vaping status: Never Used Substance and Sexual Activity Alcohol use: No Alcohol/week: 0.0 standard drinks of alcohol Drug use: No Sexual activity: Not on file Other Topics Concern Not on file Social History Narrative Not on file Social Drivers of Health Financial Resource Strain: Not on file Food Insecurity: No Food Insecurity (08/03/2024) Hunger Vital Sign Worried About Running Out of Food in the Last Year: Never true Ran Out of Food in the Last Year: Never true Transportation Needs: No Transportation Needs (08/03/2024) PRAPARE - Transportation Lack of Transportation (Medical): No Lack of Transportation (Non-Medical): No Physical Activity: Not on file Stress: Not on file Social Connections: Not on file Intimate Partner Violence: Not At Risk (08/03/2024) Humiliation, Afraid, Rape, and Kick questionnaire Fear of Current or Ex-Partner: No Emotionally Abused: No Physically Abused: No Sexually Abused: No Housing Stability: Low Risk (08/03/2024) Housing Stability Vital Sign Unable to Pay for Housing in the Last Year: No Number of Times Moved in the Last Year: 1 Homeless in the Last Year: No Medications: Scheduled Meds:acetaminophen, 650 mg, Oral, TID amLODIPine, 5 mg, Oral, Daily cefTRIAXone, 1,000 mg, IntraVENous, q24h cholecalciferol, 1,000 Units, Oral, Daily divalproex, 250 mg, Oral, TID WC DULoxetine, 60 mg, Oral, Daily heparin, 5,000 Units, SubCUTAneous, 2 times per day hydrALAZINE, 50 mg, Oral, TID lamoTRIgine, 200 mg, Oral, Nightly levothyroxine, 125 mcg, Oral, Daily metoprolol tartrate, 100 mg, Oral, BID pantoprazole, 40 mg, Oral, qAM AC risperiDONE, 6 mg, Oral, Nightly rosuvastatin, 10 mg, Oral, Daily tamsulosin, 0.4 mg, Oral, Daily traZODone, 200 mg, Oral, Nightly Continuous Infusions: Allergies: Allergies Allergen Reactions Benztropine Disorientation and loss of muscle control Diphenhydramine Disorientation Nsaids CKD Stage 3 Other Anticholinergics: cause disorientation and loss of muscle control Venlafaxine Hives Review of Systems: All other ROS negative, except for those noted above in HPI. Physical Exam: Vitals: 08/07/24 0036 08/07/24 0409 08/07/24 0731 08/07/24 1141 BP: 132/71 133/77 119/77 BP Location: Right arm Right arm Left arm Patient Position: Sitting Lying Pulse: 68 78 62 Resp: 16 20 20 Temp: 36.3 C (97.3 F) 36.3 C (97.4 F) 36.8 C (98.2 F) TempSrc: Temporal Temporal Temporal SpO2: 95% 100% 98% Weight: 121 kg (266 lb 6.4 oz) Height: Today's weight: Weight: 121 kg (266 lb 6.4 oz) Admission weight: Weight: 125 kg (275 lb) Wt Readings from Last 3 Encounters: 08/07/24 121 kg (266 lb 6.4 oz) 06/28/24 125 kg (275 lb 9.6 oz) 06/14/24 125 kg (276 lb) Estimated body mass index is 44.33 kg/m as calculated from the following: Height as of this encounter: 1.651 m (5' 5"). Weight as of this encounter: 121 kg (266 lb 6.4 oz). Intake/Output Summary (Last 24 hours) at 08/07/2024 1232 Last data filed at 08/07/2024 1206 Gross per 24 hour Intake 3090 ml Output 250 ml Net 2840 ml FIO2 needs: No data found. General Appearance no acute distress, comfortable appearing, looks stated age. Alert and oriented x 3, chronically ill appearing HEENT Neck anicteric sclera, moist mucus membranes, normal external ears/nares, no facial edema Supple neck, midline trachea without tracheal deviation Chest symmetric, normal shape/expansion, no chest wall/sternal tenderness Heart RRR, no audible pericardial rubs Lungs clear to auscultation bilaterally, unlabored respirations without conversational dyspnea, no accessory muscle use, room air Abdomen Skin soft without distension, normal bowel sounds, no ttp no rash or subcutaneous nodules, warm and dry skin with good turgor Musculoskeletal no synovitis or joint effusions noted, trace L leg edema no infante catheter present Neurologic no resting tremor. Able to follow commands. Psychiatric apporpriate mood and affect, insight and judgment intact. Memory recall poor LABS: Recent Labs 08/06/24 0410 08/07/24 0000 WBC 8.3 8.9 HGB 9.0* 8.4* HCT 28.4* 25.8* MCV 98.3 98.1 PLT 271 265 Lab Results Component Value Date IRON 61 08/06/2024 TIBC 126 (L) 08/06/2024 FERRITIN 391 (H) 08/06/2024 Lab Results Component Value Date [id number] 913 04/05/2022 FOLATE >20.0 04/05/2022 Recent Labs 08/06/24 0410 08/07/24 0000 NA 130* 133* K 4.3 4.7 CL 101 103 CO2 22 23 BUN 30* 34* CREATININE 3.13* 2.89* GLUCOSE 80 114* CALCIUM 8.6 8.6 PHOS 3.8 -- ANIONGAP 7 7 Lab Results Component Value Date PTH 161.6 (H) 04/17/2024 VITD25 24 (L) 04/17/2024 Lab Results Component Value Date ALT <6 08/03/2024 AST 20 08/03/2024 Lab Results Component Value Date COLORU Yellow 08/05/2024 CLARITYU Extra Turbid (A) 08/05/2024 GLUCOSEU Normal 08/05/2024 BLOODU 0.03 (A) 08/05/2024 UROBILINOGEN Normal 08/05/2024 Lab Results Component Value Date HEPCAB Not Detected 08/25/2023 Diagnostic Studies: CXR: reviewed in PACS Personally reviewed MARS, labs, radiologic studies and notes. [facility] office: [phone] Pager: [phone] Hospitalist Progress Note 08/07/2024 Assessment/Plan: Data: (CAT1) Reviewed 2 notes from different specialty or health system (each=1). (CAT1) Reviewed 2 labs/studies ordered by another provider not previously counted (each=1, panels count as 1). (LOW: 2x CAT1 or independent historian MOD: 3x CAT1 or 1x CAT3 EXTENSIVE: 3x CAT1 and 1x CAT3) Acute, acute on chronic, unstable/uncontrolled chronic problems/diagnoses: B/L LE edema JOSE A/CKD IV (baseline Cr ~ 2.5) Renal US: No hydro Nephrology consulted Failure to thrive PT/OT recommending SNF, patient agreeable Suspected UTI Ceftriaxone day 2 Follow urine culture Chronic pain Per previous provider: [facility] reviewed, takes Klonopin 0.5 mg BID PRN, last [facility] fill was May 2024 for only 30 days, insurance quit covering so it was stopped Started PRN Vicodin Stable chronic problems affecting care, new non-acute diagnoses: Hypothyroidism Depression and anxiety Asperger syndrome Debility Body mass index is 43.62 kg/m ., BMI Classification: Class 3 obesity (BMI >40.0) Chronic anemia HTN HLD Right foot laterally dislocated second MTP joint and laterally subluxed or dislocated first MTP joint - PT/OT/CM/SW - delirium precautions: increase activity - DVT prophylaxis: heparin and encourage ambulation Discharge Disposition: Anticipate DC to SNF next 1-3 days pending clinical improvement, outbound sales consultant recommendations Total time spent (which include face to face and non face to face encounters) : 38 minutes Complexity: Acute illness with systemic symptoms (MOD). Multiple stable chronic illnesses (MOD). Risk: Admission to hospital-level care was considered or occurred (HIGH). Advance Directive: Full Code Toxic drug monitoring/narrow therapeutic index drug monitoring : # Drug name : # Route administered: # Method of monitoring: Subjective: Admit Date: 08/03/2024 PCP: Edith Pierce [facility] Hospital course: Patient is a 59-year-old female with history of CKD 4, HTN, HLD, obesity, as Buerger's syndrome, bipolar disorder, depression, anxiety, hypothyroidism, debility, recent evaluation at [facility] for mechanical fall with right foot contusion/swelling. She presented to [place] ER 08/03 from for generalized bodyaches, leg edema. Admitted for further workup and evaluation, mild JOSE A/CKD. UA was suggestive of UTI, patient started on IV Rocephin. Nephrology consulted for CKD for optimization. Interval History: Laying in bed Overall feeling better Eating and drinking okay Adult diet Regular 24HR INTAKE/OUTPUT: Intake/Output Summary (Last 24 hours) at 08/07/2024 1006 Last data filed at 08/07/2024 0918 Gross per 24 hour Intake 1820 ml Output 250 ml Net 1570 ml Past Medical History: Past Medical History: Diagnosis Date Acid reflux Anxiety Arthritis Asperger syndrome Bipolar disorder (HCC) Chronic kidney disease stage 4 kidney failure Chronic pain Depression Edema of both legs GERD (gastroesophageal reflux disease) Hemorrhoids Hyperlipidemia Hypertension Hypothyroidism Iron (Fe) deficiency anemia Nephrogenic diabetes insipidus (HCC) Pain management Retention of urine, unspecified Sciatica SOB (shortness of breath) GRANT Type II or unspecified type diabetes mellitus without mention of complication, not stated as uncontrolled (HCC) Urinary incontinence nightly LABS: CBC: Recent Labs 08/06/24 0410 08/07/24 0000 WBC 8.3 8.9 RBC 2.89* 2.63* HGB 9.0* 8.4* HCT 28.4* 25.8* MCV 98.3 98.1 RDW 13.2 13.4 PLT 271 265 BMP: Recent Labs 08/06/24 0410 08/07/24 0000 NA 130* 133* K 4.3 4.7 CL 101 103 CO2 22 23 BUN 30* 34* CREATININE 3.13* 2.89* GLUCOSE 80 114* CALCIUM 8.6 8.6 ANIONGAP 7 7 LIVER PROFILE:No results for input(s): "AST", "ALT", "BILITOT", "ALKPHOS", "PROT" in the last 72 hours. No lab exists for component: LABALBU PT/INR: No results for input(s): "PROTIME", "INR" in the last 72 hours. CARDIAC ENZYMES: No results for input(s): "TROPONINI" in the last 72 hours. Procalcitonin: No results found for: "PROCAL" COVID-19 PCR: No results for input(s): "COVID19" in the last 72 hours. Objective: Vitals: BP 133/77 (BP Location: Right arm, Patient Position: Sitting) Pulse 78 Temp 36.3 C (97.4 F) (Temporal) Resp 20 Ht 5' 5" (1.651 m) Wt 266 lb 6.4 oz (121 kg) SpO2 100% BMI 44.33 kg/m Pulse Ox: SpO2 Av % Min: 92 % Max: 100 % Supplemental O2: Physical Exam Vitals and nursing note reviewed. Constitutional: Appearance: Normal appearance. Cardiovascular: Rate and Rhythm: Normal rate. Pulmonary: Effort: Pulmonary effort is normal. Abdominal: General: Abdomen is flat. Neurological: Mental Status: She is alert. Psychiatric: Mood and Affect: Mood normal. Behavior: Behavior normal. Medications: acetaminophen, 650 mg, Oral, TID amLODIPine, 5 mg, Oral, Daily cefTRIAXone, 1,000 mg, IntraVENous, q24h cholecalciferol, 1,000 Units, Oral, Daily divalproex, 250 mg, Oral, TID WC DULoxetine, 60 mg, Oral, Daily heparin, 5,000 Units, SubCUTAneous, 2 times per day hydrALAZINE, 50 mg, Oral, TID lamoTRIgine, 200 mg, Oral, Nightly levothyroxine, 125 mcg, Oral, Daily metoprolol tartrate, 100 mg, Oral, BID pantoprazole, 40 mg, Oral, qAM AC risperiDONE, 6 mg, Oral, Nightly rosuvastatin, 10 mg, Oral, Daily tamsulosin, 0.4 mg, Oral, Daily traZODone, 200 mg, Oral, Nightly Extended Emergency Contact Information Primary Emergency Contact: EstefaniPita gaines Mobile Relation: Parent Preferred language: Northern Irish Mechanism Inspector needed? No Secondary Emergency Contact: EstefaniMamadou Relation: Father Diamante Schroeder MD Division of Hospitalist Medicine [facility] Images from the original note were not included. Nephrology Progress Note Patient: Jessy Mckeon Room number: [id number] B Date of Admit: 08/03/2024 LOS: 3 days Referring physician: Kevin Grimes DO Outpatient Leach Cell Operator: Eva Andre MD Reason for Consult: Asked to see/evaluate by primary service for opinion regarding: abnormal renal labs. Assessment/Plan: 1. JOSE A on CKD stage IV with proteinuria-baseline Scr 2.4 mg/dL in 2022-early 2023. Recent admit in Jun 2024 with Scr 2.6-2.8 mg/dL. [place] related to prior lithium use, tubulointerstitial disease and history of obstructive uropathy. On this admit (08/01) Cr 3.18 ->2.8 -> 3.13, ua with numerous RBC, WBC (urine cs pending); check Fena, upcr, renal us to start. No overt uremic sx 2. 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 Urine osmolality usually fixed around 116-118. 3. Hx of psychogenic water drinking, ? Related to meds. 4. Vitamin D deficiency-started on supplemennt 5. Secondary hyperparathyroidism - recheck after correction of vitamin D deficit. 6. Anemia due to CKD and relative iron deficiency. Received Venofer 400 mg load in Jun 2024. Hgb at 9, stable, fe 61, tsat 48, ferritin 391. Defer pRBC needs to primary Medication dose adjustment: CrCl < 25 ml/min. Pending placement to new SNF Will follow along as directed. Thank you for allowing us to participate in the care of this patient. HPI: Jessy Mckoen is a 59 y.o. female with a past medical history of: CKD stage IV, bipolar disorder, prior lithium use > 20 years, nephrogenic DI, hypothyroidism, vitamin D deficiency, major depression s/p ECT remotely, who was admitted by,Mariann Byrnes MD, for Peripheral edema [R60.0] Failure to thrive in adult [R62.7] Fluid overload [E87.70] Hypervolemia, unspecified hypervolemia type [E87.70] Anemia, unspecified type [D64.9] Chronic kidney disease, unspecified CKD stage [N18.9]. Recent [place] ER evaluation after mechanical fall with R foot contusion/swelling. Sent to [facility] ER for generalized body aches, leg edema, and patient claim of current facility being unable to attend to her needs. BNP 784, weight 262 lbs (was 275 lbs in Jun 2024). Consulted for JOSE A on CKD - baseline Scr 2.4 mg/dL in 2022-early 2023. Recent admit in Jun 2024 with Scr 2.6-2.8 mg/dL. [place] related to prior lithium use, tubulointerstitial disease and history of obstructive uropathy. On this admit (08/01) Cr 3.18 ->2.8 -> 3.13. No overt hypotensive episode, denies nausea/vomiting/hiccups/pruritus PMHx: Past Medical History: Diagnosis Date Acid reflux Anxiety Arthritis Asperger syndrome Bipolar disorder (HCC) Chronic kidney disease stage 4 kidney failure Chronic pain Depression Edema of both legs GERD (gastroesophageal reflux disease) Hemorrhoids Hyperlipidemia Hypertension Hypothyroidism Iron (Fe) deficiency anemia Nephrogenic diabetes insipidus (HCC) Pain management Retention of urine, unspecified Sciatica SOB (shortness of breath) GRANT Type II or unspecified type diabetes mellitus without mention of complication, not stated as uncontrolled (HCC) Urinary incontinence nightly Past Surgical History: Past Surgical History: Procedure Laterality Date 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 CHOLECYSTECTOMY COLON SURGERY c-diff COLONOSCOPY 03/28/2018 no polyps UPPER GASTROINTESTINAL ENDOSCOPY 03/28/2018 Family History: Family History Problem Relation Name Age of Onset Hypertension Mother Cancer Father Colon cancer Maternal Grandmother Cancer Brother Social History: Social History Socioeconomic History Marital status: Single Spouse name: Not on file Number of children: Not on file Years of education: Not on file Highest education level: Not on file Occupational History Not on file Tobacco Use Smoking status: Former Smokeless tobacco: Never Vaping Use Vaping status: Never Used Substance and Sexual Activity Alcohol use: No Alcohol/week: 0.0 standard drinks of alcohol Drug use: No Sexual activity: Not on file Other Topics Concern Not on file Social History Narrative Not on file Social Drivers of Health Financial Resource Strain: Not on file Food Insecurity: No Food Insecurity (08/03/2024) Hunger Vital Sign Worried About Running Out of Food in the Last Year: Never true Ran Out of Food in the Last Year: Never true Transportation Needs: No Transportation Needs (08/03/2024) PRAPARE - Transportation Lack of Transportation (Medical): No Lack of Transportation (Non-Medical): No Physical Activity: Not on file Stress: Not on file Social Connections: Not on file Intimate Partner Violence: Not At Risk (08/03/2024) Humiliation, Afraid, Rape, and Kick questionnaire Fear of Current or Ex-Partner: No Emotionally Abused: No Physically Abused: No Sexually Abused: No Housing Stability: Low Risk (08/03/2024) Housing Stability Vital Sign Unable to Pay for Housing in the Last Year: No Number of Times Moved in the Last Year: 1 Homeless in the Last Year: No Medications: Scheduled Meds:acetaminophen, 650 mg, Oral, TID amLODIPine, 5 mg, Oral, Daily cefTRIAXone, 1,000 mg, IntraVENous, q24h cholecalciferol, 1,000 Units, Oral, Daily divalproex, 250 mg, Oral, TID WC DULoxetine, 60 mg, Oral, Daily heparin, 5,000 Units, SubCUTAneous, 2 times per day hydrALAZINE, 50 mg, Oral, TID lamoTRIgine, 200 mg, Oral, Nightly levothyroxine, 125 mcg, Oral, Daily metoprolol tartrate, 100 mg, Oral, BID pantoprazole, 40 mg, Oral, qAM AC risperiDONE, 6 mg, Oral, Nightly rosuvastatin, 10 mg, Oral, Daily tamsulosin, 0.4 mg, Oral, Daily traZODone, 200 mg, Oral, Nightly Continuous Infusions: Allergies: Allergies Allergen Reactions Benztropine Disorientation and loss of muscle control Diphenhydramine Disorientation Nsaids CKD Stage 3 Other Anticholinergics: cause disorientation and loss of muscle control Venlafaxine Hives Review of Systems: All other ROS negative, except for those noted above in HPI. Physical Exam: Vitals: 08/06/24 0252 08/06/24 0300 08/06/24 0755 08/06/24 1135 BP: 112/65 128/70 102/61 BP Location: Left arm Right arm Right arm Patient Position: Lying Sitting Sitting Pulse: 64 64 59 Resp: 17 19 18 Temp: 36.2 C (97.2 F) 36.4 C (97.5 F) 36.1 C (96.9 F) TempSrc: Temporal Temporal Temporal SpO2: 98% 98% 92% Weight: 119 kg (262 lb 5.6 oz) Height: Today's weight: Weight: 119 kg (262 lb 5.6 oz) Admission weight: Weight: 125 kg (275 lb) Wt Readings from Last 3 Encounters: 08/06/24 119 kg (262 lb 5.6 oz) 06/28/24 125 kg (275 lb 9.6 oz) 06/14/24 125 kg (276 lb) Estimated body mass index is 43.66 kg/m as calculated from the following: Height as of this encounter: 1.651 m (5' 5"). Weight as of this encounter: 119 kg (262 lb 5.6 oz). Intake/Output Summary (Last 24 hours) at 08/06/2024 1204 Last data filed at 08/06/2024 1050 Gross per 24 hour Intake 50 ml Output 900 ml Net -850 ml FIO2 needs: No data found. General Appearance no acute distress, comfortable appearing, looks stated age. Alert and oriented x 3, chronically ill appearing HEENT Neck anicteric sclera, moist mucus membranes, normal external ears/nares, no facial edema Supple neck, midline trachea without tracheal deviation Chest symmetric, normal shape/expansion, no chest wall/sternal tenderness Heart RRR, no audible pericardial rubs Lungs clear to auscultation bilaterally, unlabored respirations without conversational dyspnea, no accessory muscle use, room air Abdomen Skin soft without distension, normal bowel sounds, no ttp no rash or subcutaneous nodules, warm and dry skin with good turgor Musculoskeletal no synovitis or joint effusions noted, trace L leg edema no infante catheter present Neurologic no resting tremor. Able to follow commands. Psychiatric apporpriate mood and affect, insight and judgment intact. Memory recall poor LABS: Recent Labs 08/04/24 0033 08/06/24 0410 WBC 7.6 8.3 HGB 8.8* 9.0* HCT 27.4* 28.4* MCV 97.2 98.3 PLT 228 271 Lab Results Component Value Date IRON 61 08/06/2024 TIBC 126 (L) 08/06/2024 FERRITIN 391 (H) 08/06/2024 Lab Results Component Value Date [id number] 913 04/05/2022 FOLATE >20.0 04/05/2022 Recent Labs 08/04/24 0033 08/06/24 0410 NA 136 130* K 3.9 4.3 CL 105 101 CO2 BUN 23 30* CREATININE 2.88* 3.13* GLUCOSE 95 80 CALCIUM 8.9 8.6 PHOS -- 3.8 ANIONGAP 7 7 Lab Results Component Value Date PTH 161.6 (H) 04/17/2024 VITD25 24 (L) 04/17/2024 Lab Results Component Value Date ALT <6 08/03/2024 AST 20 08/03/2024 Lab Results Component Value Date COLORU Yellow 08/05/2024 CLARITYU Extra Turbid (A) 08/05/2024 GLUCOSEU Normal 08/05/2024 BLOODU 0.03 (A) 08/05/2024 UROBILINOGEN Normal 08/05/2024 Lab Results Component Value Date HEPCAB Not Detected 08/25/2023 Diagnostic Studies: CXR: reviewed in PACS Personally reviewed MARS, labs, radiologic studies and notes. A office: [phone] Pager: [phone] Images from the original note were not included. OCCUPATIONAL THERAPY [facility] Initial Evaluation Name/MRN: Jessy Mckeon ([id number]) Evaluation Date: 08/06/2024 Date of : 1965 Admission Date: 08/03/2024 9:41 AM Age: 59 y.o. Room/Bed: [facility] B Discharge Recommendation: Continue to assess pending progress, Snf Facility Assessment IMPRESSION: Patient admit due to increased fluid retention and global pain. Patient resides in [place], PLOF includes assistance with ADLs, able to do most with SBA. Patient currently is limited by weakness, pain, and fatigue and is demonstrating below fxl baseline. Patient required max a for bed mobility, min a sitting balance at EOB, declined attempt to stand due to pain, max a for LB dressing. Patient would benefit from IP OT services to increase overall indep and safety. OT recommends SNF at [place], patient requires more care than available at [facility]. Admitting Diagnosis: global pain, increased fluid Performance Deficits /Impairments: Increased Pain, Decreased Functional Mobility, Decreased ADL status, Decreased Strength, Decreased Safety Awareness, Decreased Endurance, Decreased Balance, Decreased Coordination, and Decreased Posture Prognosis: Guarded Decision Making: Low Complexity Subjective I have pain all over Pain: [place]-Tam Pain Ratin = Hurts whole lot Pain Location: global, mostly back and bilateral UEs Past Medical History: Past Medical History: Diagnosis Date Acid reflux Anxiety Arthritis Asperger syndrome Bipolar disorder ([facility]) Chronic kidney disease stage 4 kidney failure Chronic pain Depression Edema of both legs GERD (gastroesophageal reflux disease) Hemorrhoids Hyperlipidemia Hypertension Hypothyroidism Iron (Fe) deficiency anemia Nephrogenic diabetes insipidus ([facility]) Pain management Retention of urine, unspecified Sciatica SOB (shortness of breath) GRANT Type II or unspecified type diabetes mellitus without mention of complication, not stated as uncontrolled ([facility]) Urinary incontinence nightly Past Surgical History: Past Surgical History: Procedure Laterality Date 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 CHOLECYSTECTOMY COLON SURGERY c-diff COLONOSCOPY 03/28/2018 no polyps UPPER GASTROINTESTINAL ENDOSCOPY 03/28/2018 Admission Diagnosis: Patient Active Problem List Diagnosis Date Noted Fluid overload 08/03/2024 Hypervolemia, unspecified hypervolemia type 08/03/2024 Acute cystitis without hematuria 06/28/2024 Chronic renal disease, stage IV ([facility]) 06/20/2023 Chronic kidney disease, stage 3b ([facility]) 06/20/2023 Urinary tract infection without hematuria, site unspecified 03/17/2023 Urinary tract infection 03/16/2023 Depression 12/23/2021 Localized edema 01/11/2019 Schizoaffective disorder ([facility]) ([facility]) 06/05/2018 Suicidal ideations 05/22/2018 Chronic schizoaffective disorder ([facility]) 05/22/2018 Acute gastric ulcer without hemorrhage or perforation 03/28/2018 Diverticulosis of large intestine without diverticulitis 03/28/2018 Chronic antral gastritis 03/28/2018 First degree hemorrhoids 03/28/2018 Dyspnea 03/03/2018 Urinary retention 03/02/2018 Chest pain 02/14/2018 Hyponatremia 02/12/2018 Hypothyroidism 10/12/2017 Morbid obesity with BMI of 45.0-49.9, adult ([facility]) 10/12/2017 Hypomagnesemia 10/12/2017 JOSE A (acute kidney injury) ([facility]) 10/12/2017 Chronic bilateral low back pain with bilateral sciatica 10/12/2017 Psychogenic polydipsia 10/12/2017 Hypertension 10/12/2017 Bipolar disorder ([facility]) 10/12/2017 Iron (Fe) deficiency anemia 10/09/2017 Primary hypothyroidism 06/13/2017 Pneumonia 06/13/[address] 06/13/2017 Urge incontinence of urine 01/12/2017 Nocturia 10/15/2016 Urge incontinence 10/15/2016 Rotator cuff strain 11/03/2015 Osteoarthritis of patellofemoral joint 11/03/2015 Anxiety 04/03/2015 GERD (gastroesophageal reflux disease) 04/03/2015 Urinary incontinence 04/03/2015 Medical Precautions: No active isolations Proper PPE donned/doffed in accordance with facility standards. Fall Risk: [place] Fall Risk Score: 100 (High Risk) Precautions/Restrictions: Lines/Drains/Airways: PIV Fall Precautions Family/Caregiver Present: none Overall Cognitive Status: WFL Overall Orientation Status: Oriented to Place, Oriented to Situation, and Oriented to Person Social/Functional History Patient admitted from [facility]. Assistive Equipment: front wheeled walker Prior Level of Function Prior Level of ADL Function: Required Assist Prior Level of Mobility: Required Assist; Device: Front wheeled walker, Rollator, and Wheelchair - manual Prior Level of Transfers: Required Assist Objective ADLs LE Dressing: Max Assist Upper Extremity Assessment AROM: WFL PROM: Not assessed this session Strength: Upper Extremity Strength Right Left Shoulder Flexion 3- 3- Shoulder Abduction Elbow Flexion Elbow Extension Wrist Flexion Wrist Extension Vision: not assessed this session Hearing: normal Bed Mobility Supine to sit: Max Assist Sit to supine: Max Assist Scooting: Max Assist Transfers/Functional Mobility Sitting balance: Min Assist Device(s) used: None AM-PAC AM-PAC Inpatient Daily Activity Raw Score: 13 ADL Inpatient CMS G-Code Modifier: CL Plan Pt would benefit from skilled acute OT services to address Strengthening, Gait Training, Balance Training, Self-Care/ADL Training, Functional Mobility Training, Endurance Training, Safety Education and Training, and Patient/Caregiver Training. Frequency: 3x/week for 4 weeks Barriers: Pain Safety/Education Safety Safety Devices in place: All fall risk precautions in place, call light within reach, and left in bed Restraints: No Education Education Given To: patient Education Provided: OT Role, Plan of Care, ADL Adaptive Strategies, Fall Prevention Education, Discharge Recommendations, and Benefits of Increasing Activity Education Method: Verbal Barriers to Learning: None Education Outcome: Verbalized Understanding Goals Patient Stated Goal: to have no pain Encounter Problems Encounter Problems (Active) Balance Patient will maintain static/ dynamic standing balance with SBA in order to demonstrate decreased risk of falling. Start: 08/06/24 Expected End: 09/03/24 Balance Patient will maintain dynamic sitting balance with mod I in order to demonstrate improved postural control and prepare for out of bed mobility. Start: 08/06/24 Dressing Upper Extremities Patient will complete upper body dressing using adaptive strategies with mod I. Start: 08/06/24 Expected End: 09/03/24 Dressings Lower Extremities Patient will dress lower body using adaptive strategies with mod I. Start: 08/06/24 Expected End: 09/03/24 Grooming Patient will complete daily grooming tasks while standing at sink with SBA. Start: 08/06/24 Expected End: 09/03/24 Mobility Patient will demonstrate functional ambulation using LRD and with SBA. Start: 08/06/24 Expected End: 09/03/24 Toileting Patient will complete toileting tasks at standard toilet with SBA. Start: 08/06/24 Expected End: 09/03/24 Transfers Patient will complete functional transfer with least restrictive device with SBA in order to prepare for ambulation. Start: 08/06/24 Expected End: 09/03/24 Therapy Time Individual Co-Treatment Co-Evaluation Time In 1054 Time Out 1106 Minutes 12 Diamond Coles OT Patient's Occupational Therapy Plan of Care supervision is transferred to a [facility] Therapy Services Occupational Therapist. Goals and/or treatment plan was established in collaboration with patient/family/other representatives. Hospitalist Progress Note - [facility] - Acute Care [facility] ([facility] 08/06/2024 8:29 AM [phone]: Please page me for patient care issues. [phone]: Please page [facility] Hospitalist - [facility] for any issues. Subjective and Objective: Admit Date: 08/03/2024 PCP: Edith Pierce MD Chief Complaint Patient presents with Joint Pain Adult diet Regular Dietary Orders (From admission, onward) Start Ordered 08/03/242225 Adult diet Regular Diet effective now Question: Diet type Answer: Regular 08/03/242224 I/O last 3 completed shifts: In: 1080 (9.1 mL/kg) [P.O.:1080] Out: 900 (7.6 mL/kg) [Urine:900 (0.2 mL/kg/hr)] Weight: 119 kg @IODETAILS@ @[id number]@ Medications: acetaminophen, 650 mg, Oral, TID amLODIPine, 5 mg, Oral, Daily cholecalciferol, 1,000 Units, Oral, Daily divalproex, 250 mg, Oral, TID WC DULoxetine, 60 mg, Oral, Daily heparin, 5,000 Units, SubCUTAneous, 2 times per day hydrALAZINE, 50 mg, Oral, TID lamoTRIgine, 200 mg, Oral, Nightly levothyroxine, 125 mcg, Oral, Daily metoprolol tartrate, 100 mg, Oral, BID pantoprazole, 40 mg, Oral, qAM AC risperiDONE, 6 mg, Oral, Nightly rosuvastatin, 10 mg, Oral, Daily tamsulosin, 0.4 mg, Oral, Daily traZODone, 200 mg, Oral, Nightly Recent Labs 08/03/24 1040 08/04/24 0033 08/06/24 0410 WBC 8.4 7.6 8.3 HGB 9.2* 8.8* 9.0* PLT 229 228 271 Recent Labs 08/03/24 1040 08/04/24 0033 08/06/24 0410 NA 131* 136 130* K 4.4 3.9 4.3 CL 101 105 101 CO2 24 24 22 BUN 23 23 30* CREATININE 2.94* 2.88* 3.13* GLUCOSE 85 95 80 Recent Labs 08/03/24 1040 AST 20 ALT <6 BILITOT 0.3 ALKPHOS 75 No results found for: "TRIG", "HDL", "LDLCALC", "CHOL" No results found for: "PHART", "PO2ART", "FIU5XBG" No results for input(s): "INR" in the last 72 hours. No results for input(s): "CKTOTAL", "CKMB", "TROPONINI" in the last 72 hours. Recent Labs 08/03/24 1040 DDIMER 0.74* No results found for: "HGBA1C" No results found for: "TSH" Urine Culture: Results for orders placed or performed during the hospital encounter of 06/28/24 Urine culture Collection Time: 06/28/24 12:54 PM Specimen: Urine, Clean Catch Result Value Ref Range Urine Culture >100,000 CFU/mL Escherichia coli (A) Susceptibility Escherichia coli - BROTH MICRODILUTION Amoxicillin / Clavulanate <=2 Susceptible ug/ml Ampicillin <=2 Susceptible ug/ml Ampicillin / Sulbactam <=2 Susceptible ug/ml Aztreonam <=1 Susceptible ug/ml Cefazolin <=4 Susceptible ug/ml Cefepime <=1 Susceptible ug/ml Ceftriaxone <=1 Susceptible ug/ml Ciprofloxacin <=0.25 Susceptible ug/ml Gentamicin <=1 Susceptible ug/ml Meropenem <=0.25 Susceptible ug/ml Nitrofurantoin <=16 Susceptible ug/ml Piperacillin / Tazobactam <=4 Susceptible ug/ml Trimethoprim / Sulfamethoxazole <=20 Susceptible ug/ml Objective: Vitals: BP 128/70 (BP Location: Right arm, Patient Position: Sitting) Pulse 64 Temp 36.4 C (97.5 F) (Temporal) Resp 19 Ht 5' 5" (1.651 m) Wt 262 lb 5.6 oz (119 kg) SpO2 98% BMI 43.66 kg/m Pulse Ox: SpO2 Av % Min: 97 % Max: 100 % Supplemental O2: Past 24 hours events: more alert today GENERAL: alert and oriented, no acute distress CARDIOVASCULAR: RRR, no murmurs RESPIRATORY: clear without wheezes ABDOMEN: soft, non tender EXTREMITIES: no edema ANATOMY/TUBES/LINES: N/A Running Summary, Assessment, and Plan Jessy is a 59 y.o. female with PMH of [as below] who presents with [complaints of generalized joint pain]. Of note patient was also recently seen by ED on 08/01 for contusion of right ankle and lower extremity pain and swelling. Was discharged in stable condition directly from the ED at that time. In the ED [at [facility]] Vital signs were stable patient was afebrile heart rate in the 60s, blood pressure soft between 96-110/50-60s. Labs with sodium of 132-131, creatinine with elevation from 08/01 at 3.1 8 repeat today was 2.94 which is closer to patient's baseline around 2.6-3.0. Albumin 3.2, proBNP 784, CBC largely unremarkable except for anemia in the nines, x-ray of her joints including foot from 08/01 unremarkable. Chest x-ray not repeated today but she did have vascular ultrasound of her calves to rule out any DVT which was negative. Admitted for further evaluation and management. She stated that her insurance quit covering Butrans patch and now she is having diffuse body pain. Add PRN Vicodin. PT/OT UA suggesting UTI, started on IV Rocephin. Nephro checking renal US Discharge pending dispo Acute, acute on chronic, unstable/uncontrolled chronic problems/diagnoses: B/L LE edema CKD IV (baseline Cr ~ 2.5) Failure to thrive Hyponatremia Suspected UTI Chronic pain Stable chronic problems affecting care, new non-acute diagnoses: Hypothyroidism Depression and anxiety Asperger syndrome Debility Body mass index is 43.62 kg/m ., BMI Classification: Class 3 obesity (BMI >40.0) Chronic anemia HTN HLD Right foot laterally dislocated second MTP joint and laterally subluxed or dislocated first MTP joint As a result of the above findings & factors, the following mgmt was pursued: - OARRS reviewed, takes Klonopin 0.5 mg BID PRN, last Butrans fill was May 2024 for only 30 days, insurance quit covering so it was stopped - Started PRN Vicodin - Nephro consulted for CKD IV optimization, renal US - Pharmacy confirmed home Synthroid dose of 125 mcg - UA consistent with UTI - IV Rocephin Day #1 (08/06) - Urine culture pending - am labs, replace lytes prn - PT/OT/CM/SW as appropriate - delirium precautions: limit night-time awakening - DVT prophylaxis: Heparin SQ Complexity: Acute illness or injury posing a threat to life or body function (HIGH). Risk: Admission to hospital-level care was considered or occurred (HIGH). Advance Directive: Full Anticipated Discharge - Date - 08/06 - 08/13 - Location - From [place], possible to SNF - Pending the following - clinical course, dispo, Vicodin and Klonopin script on chart, renal recs, UTI plan Total time spent (which include face to face and non face to face encounters) in minutes: 51 Toxic drug monitoring/narrow therapeutic index drug monitoring : # Drug name : Heparin # Route administered : SQ # Method of monitoring : H&H # Drug name : Metoprolol # Route administered : oral # Method of monitoring : vitals (HR and BP) # Drug name : Vicodin # Route administered : oral # Method of monitoring : RR, lethargy Extended Emergency Contact Information Primary Emergency Contact: Pita Jara [employer] Relation: Parent Preferred language: Northern Irish Mechanism Inspector needed? No Secondary Emergency Contact: Mamadou Jara Relation: Father Kevin Grimes DO Division of Hospitalist Medicine Inpatient Medical Services/[facility] Images from the original note were not included. OCCUPATIONAL THERAPY [facility] Name/MRN: Jessy Mckeon ([id number]) Date: 08/05/2024 OT eval and treatment received. Pt chart reviewed. Pt asleep upon OT arrival, pt difficult to wake, pt would open eyes briefly and then close them, pt unable to stay alert at this time. Will re-attempt as schedule allows. Wily Hendricks OT Nutrition rescreen completed. Chart reviewed. 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 Hospitalist Progress Note - [facility] - [facility] ([facility]) 08/05/2024 8:40 AM [phone]: Please page me for patient care issues. [phone]: Please page [facility] Hospitalist - [facility] for any issues. Subjective and Objective: Admit Date: 08/03/2024 PCP: Edith Pierce MD Chief Complaint Patient presents with Joint Pain Adult diet Regular Dietary Orders (From admission, onward) Start Ordered 08/03/242225 Adult diet Regular Diet effective now Question: Diet type Answer: Regular 08/03/242224 I/O last 3 completed shifts: In: 1780 (15 mL/kg) [P.O.:1780] Out: 1200 (10.1 mL/kg) [Urine:1200 (0.3 mL/kg/hr)] Weight: 118.4 kg @IODETAILS@ @[id number]@ Medications: acetaminophen, 650 mg, Oral, TID amLODIPine, 5 mg, Oral, Daily cholecalciferol, 1,000 Units, Oral, Daily divalproex, 250 mg, Oral, TID WC DULoxetine, 60 mg, Oral, Daily heparin, 5,000 Units, SubCUTAneous, 2 times per day hydrALAZINE, 50 mg, Oral, TID lamoTRIgine, 200 mg, Oral, Nightly levothyroxine, 125 mcg, Oral, Daily metoprolol tartrate, 100 mg, Oral, BID pantoprazole, 40 mg, Oral, qAM AC risperiDONE, 6 mg, Oral, Nightly rosuvastatin, 10 mg, Oral, Daily tamsulosin, 0.4 mg, Oral, Daily traZODone, 200 mg, Oral, Nightly Recent Labs 08/03/24 1040 08/04/24 0033 WBC 8.4 7.6 HGB 9.2* 8.8* PLT 229 228 Recent Labs 08/03/24 1040 08/04/24 0033 NA 131* 136 K 4.4 3.9 CL 101 105 CO2 24 24 BUN 23 23 CREATININE 2.94* 2.88* GLUCOSE 85 95 Recent Labs 08/03/24 1040 AST 20 ALT <6 BILITOT 0.3 ALKPHOS 75 No results found for: "TRIG", "HDL", "LDLCALC", "CHOL" No results found for: "PHART", "PO2ART", "AMA6JWY" No results for input(s): "INR" in the last 72 hours. No results for input(s): "CKTOTAL", "CKMB", "TROPONINI" in the last 72 hours. Recent Labs 08/03/24 1040 DDIMER 0.74* No results found for: "HGBA1C" No results found for: "TSH" Urine Culture: Results for orders placed or performed during the hospital encounter of 06/28/24 Urine culture Collection Time: 06/28/24 12:54 PM Specimen: Urine, Clean Catch Result Value Ref Range Urine Culture >100,000 CFU/mL Escherichia coli (A) Susceptibility Escherichia coli - BROTH MICRODILUTION Amoxicillin / Clavulanate <=2 Susceptible ug/ml Ampicillin <=2 Susceptible ug/ml Ampicillin / Sulbactam <=2 Susceptible ug/ml Aztreonam <=1 Susceptible ug/ml Cefazolin <=4 Susceptible ug/ml Cefepime <=1 Susceptible ug/ml Ceftriaxone <=1 Susceptible ug/ml Ciprofloxacin <=0.25 Susceptible ug/ml Gentamicin <=1 Susceptible ug/ml Meropenem <=0.25 Susceptible ug/ml Nitrofurantoin <=16 Susceptible ug/ml Piperacillin / Tazobactam <=4 Susceptible ug/ml Trimethoprim / Sulfamethoxazole <=20 Susceptible ug/ml Objective: Vitals: BP 130/77 (BP Location: Right arm, Patient Position: Lying) Pulse 63 Temp 36.4 C (97.6 F) (Temporal) Resp 18 Ht 5' 5" (1.651 m) Wt 261 lb 0.4 oz (118 kg) SpO2 99% BMI 43.44 kg/m Pulse Ox: SpO2 Av.8 % Min: 98 % Max: 99 % Supplemental O2: Past 24 hours events: declined labs this morning GENERAL: somnolent CARDIOVASCULAR: regular, no extra heart sounds RESPIRATORY: good breath sounds, no wheezes ABDOMEN: non-tender EXTREMITIES: no LE wounds or acute pathology ANATOMY/TUBES/LINES: N/A Running Summary, Assessment, and Plan Jessy is a 59 y.o. female with PMH of [as below] who presents with [complaints of generalized joint pain]. Of note patient was also recently seen by ED on 08/01 for contusion of right ankle and lower extremity pain and swelling. Was discharged in stable condition directly from the ED at that time. In the ED [at [facility]] Vital signs were stable patient was afebrile heart rate in the 60s, blood pressure soft between 96-110/50-60s. Labs with sodium of 132-131, creatinine with elevation from 08/01 at 3.1 8 repeat today was 2.94 which is closer to patient's baseline around 2.6-3.0. Albumin 3.2, proBNP 784, CBC largely unremarkable except for anemia in the nines, x-ray of her joints including foot from 08/01 unremarkable. Chest x-ray not repeated today but she did have vascular ultrasound of her calves to rule out any DVT which was negative. Admitted for further evaluation and management. She stated that her insurance quit covering Butrans patch and now she is having diffuse body pain. Add PRN Vicodin. PT/OT Declining labs today Discharge pending dispo Acute, acute on chronic, unstable/uncontrolled chronic problems/diagnoses: B/L LE edema CKD IV (baseline Cr ~ 2.5) Failure to thrive Hyponatremia Chronic pain Stable chronic problems affecting care, new non-acute diagnoses: Hypothyroidism Depression and anxiety Asperger syndrome Debility Body mass index is 43.62 kg/m ., BMI Classification: Class 3 obesity (BMI >40.0) Chronic anemia HTN HLD Right foot laterally dislocated second MTP joint and laterally subluxed or dislocated first MTP joint As a result of the above findings & factors, the following mgmt was pursued: - PRN Vicodin - OARRS reviewed, takes Klonopin 0.5 mg BID PRN, last Butrans fill was May 2024 for only 30 days, insurance quit covering so it was stopped - Check UA - Nephro consulted for CKD IV optimization - Pharmacy confirmed home Synthroid dose of 125 mcg - am labs, replace lytes prn - PT/OT/CM/SW as appropriate - delirium precautions: limit night-time awakening - DVT prophylaxis: Heparin SQ Complexity: Acute illness or injury posing a threat to life or body function (HIGH). Risk: Admission to hospital-level care was considered or occurred (HIGH). Advance Directive: Full Anticipated Discharge - Date - 08/06 - 08/13 - Location - From [place], possible to SNF - Pending the following - clinical course, dispo, Vicodin and Klonopin script on chart Total time spent (which include face to face and non face to face encounters) in minutes: 52 Toxic drug monitoring/narrow therapeutic index drug monitoring : # Drug name : Heparin # Route administered : SQ # Method of monitoring : H&H # Drug name : Metoprolol # Route administered : oral # Method of monitoring : vitals (HR and BP) # Drug name : Vicodin # Route administered : oral # Method of monitoring : RR, lethargy Extended Emergency Contact Information Primary Emergency Contact: Pita Jara [employer] Relation: Parent Preferred language: Northern Irish Mechanism Inspector needed? No Secondary Emergency Contact: Mamadou Jara Relation: Father Kevin Grimes DO [facility]/[place] Images from the original note were not included. PHYSICAL THERAPY [facility] Initial Evaluation Name/MRN: Jessy Mckeon ([id number]) Evaluation Date: 08/04/2024 Date of : 1965 Admission Date: 08/03/2024 9:41 AM Age: 59 y.o. Room/Bed: [facility] Discharge Recommendation: Snf Facility Equipment Needed: No Assessment IMPRESSION: Patient admitted to hospital due to fluid overload and severe global pain. Patient admitted from [facility] and reports that they are unable to fully take care of her. Patient reports 10/10 global pain with all mobility. Patient requires modA for supine <-> sit and for sitting at EOB x 5 minutes. Patient unwilling to complete transfer or trial standing. Patient uses walker for short distance ambulation at [facility] per patient. A&O x 3 but very lethargic. Recommending SNF at discharge due to skilled functional needs at this time. Admitting Diagnosis: Fluid overload Prognosis: good Performance Deficits /Impairments: Increased Pain, Decreased Functional Mobility, Decreased ADL status, Decreased Strength, Decreased Endurance, Decreased Balance, Decreased Cognition, and Decreased Posture Decision Making: Low Complexity (Due to bed level eval) Subjective Patient laying supine in bed and agreeable to therapy following extensive education and motivation. 10/10 global body pain/ RN present and aware. 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[facility]) Pain management Retention of urine, unspecified Sciatica SOB (shortness of breath) GRANT Type II or unspecified type diabetes mellitus without mention of complication, not stated as uncontrolled ([facility]) Urinary incontinence nightly Past Surgical History: Past Surgical History: Procedure Laterality Date 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 CHOLECYSTECTOMY COLON SURGERY c-diff COLONOSCOPY 03/28/2018 no polyps UPPER GASTROINTESTINAL ENDOSCOPY 03/28/2018 Admission Diagnosis: Patient Active Problem List Diagnosis Date Noted Fluid overload 08/03/2024 Hypervolemia, unspecified hypervolemia type 08/03/2024 Acute cystitis without hematuria 06/28/2024 Chronic renal disease, stage IV ([facility]) 06/20/2023 Chronic kidney disease, stage 3b ([facility]) 06/20/2023 Urinary tract infection without hematuria, site unspecified 03/17/2023 Urinary tract infection 03/16/2023 Depression 12/23/2021 Localized edema 01/11/2019 Schizoaffective disorder (CMS/HCC) ([facility]) 06/05/2018 Suicidal ideations 05/22/2018 Chronic schizoaffective disorder ([facility]) 05/22/2018 Acute gastric ulcer without hemorrhage or perforation 03/28/2018 Diverticulosis of large intestine without diverticulitis 03/28/2018 Chronic antral gastritis 03/28/2018 First degree hemorrhoids 03/28/2018 Dyspnea 03/03/2018 Urinary retention 03/02/2018 Chest pain 02/14/2018 Hyponatremia 02/12/2018 Hypothyroidism 10/12/2017 Morbid obesity with BMI of 45.0-49.9, adult ([facility]) 10/12/2017 Hypomagnesemia 10/12/2017 JOSE A (acute kidney injury) ([facility]) 10/12/2017 Chronic bilateral low back pain with bilateral sciatica 10/12/2017 Psychogenic polydipsia 10/12/2017 Hypertension 10/12/2017 Bipolar disorder ([facility]) 10/12/2017 Iron (Fe) deficiency anemia 10/09/2017 Primary hypothyroidism 06/13/2017 Pneumonia 06/13/[address] 06/13/2017 Urge incontinence of urine 01/12/2017 Nocturia 10/15/2016 Urge incontinence 10/15/2016 Rotator cuff strain 11/03/2015 Osteoarthritis of patellofemoral joint 11/03/2015 Anxiety 04/03/2015 GERD (gastroesophageal reflux disease) 04/03/2015 Urinary incontinence 04/03/2015 Medical Precautions: No active isolations Proper PPE donned/doffed in accordance with facility standards. Fall Risk: [place] Fall Risk Score: 100 (High Risk) Precautions/Restrictions: Fall Precautions Family/Caregiver Present: none Overall Cognitive Status: Exceptions - Arousal/alertness: delayed responses to stimuli - Following commands: follows one step commands with repetition - Memory: appears intact - Problem solving: assistance required to identify errors made and assistance required to correct errors made Overall Orientation Status: Oriented to Place, Oriented to Time, and Oriented to Person Vision: not assessed this session Hearing: normal Social/Functional History Patient [facility] from [facility]. Assistive Equipment: front wheeled walker Prior Level of Function Prior Level of ADL Function: Required Assist Prior Level of Mobility: Required Assist; Device: Front wheeled walker Prior Level of Transfers: Required Assist Objective Lower Extremity Assessment AROM: WFL PROM: WFL Strength: Exceptions: 3/5 bilateral LE Sensation: WFL Balance: Balance During Session: Posture: fair Sitting - Static: Mod Assist Sitting - Dynamic: Mod Assist Standing - Static: Unable this date Standing - Dynamic: Unable this date Patient sat at EOB x 5 minutes with modA due to retro lean. Verbal cuing provided on proper hand placement to assist with balance and to lean forward. Momentary improvement demonstrated prior to returning to retro lean. Extensive motivation required to sit for 5 minutes due to repeated requests to return to supine. Bed Mobility: Supine to sit: Mod Assist Sit to supine: Mod Assist Rolling to right: Mod Assist Rolling to left: Mod Assist Scooting: Mod Assist ModA required for supine <-> sit for bringing bilateral LE's into/out of bed, and for elevating/lowering trunk. Verbal cuing provided throughout on proper hand placement and sequencing. ModA for rolling to due to inability to complete roll without assist. Continued verbal cuing for proper hand placement and sequencing. Transfers Unable to attempt this date due to 10/ global pain. Ambulation Did not assess this session. Exercises Exercises Straight Leg Raise: x 10 supie each LE Quad Sets: x 10 each LE Heelslides: x 10 each LE Supine Gluteal Sets: x 10 Hip Flexion: x 10 each LE supine Hip Abduction: x 10 each LE Knee Long Arc Quad: x 4 each LE Ankle Pumps: x 10 each LE Other exercises Other exercises?: No Outcome Measures AM-PAC How much HELP from another person do you currently need Turning from your back to your side while in a flat bed without using bedrails?: A Lot Moving from lying on your back to sitting on the side of a flat bed without using bedrails?: A Lot Moving to and from a bed to a chair (including a wheelchair)?: Total Standing up from a chair using your arms (wheelchair or bedside chair)?: Total Walking in a hospital room?: Total Stair climbing assessed?: No AM-PAC Inpatient Mobility Raw Score (No Stairs) : 7 JH-HLM JH-HLM Score: Sat at edge of bed Plan Pt would benefit from skilled acute PT services to address Strengthening, ROM, Gait Training, Balance Training, Functional Mobility Training, Endurance Training, Safety Education and Training, Pain Management, Equipment Evaluation/Education, Patient/Caregiver Training, and Positioning. Frequency: 2x/week for 4 weeks Barriers: Pain, Impaired balance, Lower extremity weakness, Upper extremity weakness, Decreased endurance, Cognitive deficit, and Decreased motivation Safety/Education Safety Safety Devices in place: All fall risk precautions in place, call light within reach, left in bed, bed alarm in place, patient at risk for falls, and nurse notified Restraints: No Education Education Given To: patient Education Provided: PT Role, PT Goals, Plan of Care, Home Exercise Program, Transfer Training, Equipment, Fall Prevention Education, Discharge Recommendations, and Benefits of Increasing Activity Education Method: Verbal Barriers to Learning: Cognition Education Outcome: Continued Education Needed Goals Patient Stated Goal: To get stronger Encounter Problems Encounter Problems (Active) Balance Patient will maintain dynamic standing balance for 5 minutes with CGA in order to demonstrate decreased risk of falling. Start: 08/04/24 Expected End: 09/01/24 Patient will maintain dynamic sitting balance for 10 minutes with modified independence in order to demonstrate improved postural control and prepare for out of bed mobility. Start: 08/04/24 Expected End: 09/01/24 Mobility Patient will ambulate 30 feet with CGA and least restrictive device in order to improve safety and independence with mobility. Start: 08/04/24 Expected End: 09/01/24 Transfers Patient will perform bed mobility with SBA in order to improve independence and prepare for out of bed mobility. Start: 08/04/24 Expected End: 09/01/24 Patient will complete sit to stand transfer with SBA to least restrictive assistive device in order to improve safety and prepare for out of bed mobility. Start: 08/04/24 Expected End: 09/01/24 Therapy Time Individual Co-Treatment Co-Evaluation Time In 1015 Time Out 1042 Minutes 27 Timed Code Treatment Minutes: 8 Minutes (1 Ther-ex) Mario Becerril PT Patient's Physical Therapy Plan of Care supervision is transferred to a [facility] Therapy Services Physical Therapist. Goals and/or treatment plan was established in collaboration with patient/family/other representatives. Hospitalist Progress Note - [facility] Acute Care [facility] ([facility] 08/04/2024 7:48 AM [phone]: Please page me for patient care issues. [phone]: Please page [facility] Hospitalist - [facility] for any issues. Subjective and Objective: Admit Date: 08/03/2024 PCP: Edith Pierce MD Chief Complaint Patient presents with Joint Pain Adult diet Regular Dietary Orders (From admission, onward) Start Ordered 08/03/242225 Adult diet Regular Diet effective now Question: Diet type Answer: Regular 08/03/242224 I/O last 3 completed shifts: In: 500 (4.2 mL/kg) [P.O.:500] Out: 1200 (10.1 mL/kg) [Urine:1200 (0.3 mL/kg/hr)] Weight: 118.9 kg @IODETAILS@ @[id number]@ Medications: amLODIPine, 5 mg, Oral, Daily divalproex, 250 mg, Oral, TID WC DULoxetine, 60 mg, Oral, Daily heparin, 5,000 Units, SubCUTAneous, 2 times per day hydrALAZINE, 50 mg, Oral, TID lamoTRIgine, 200 mg, Oral, Nightly levothyroxine, 125 mcg, Oral, Daily metoprolol tartrate, 100 mg, Oral, BID pantoprazole, 40 mg, Oral, qAM AC risperiDONE, 6 mg, Oral, Nightly rosuvastatin, 10 mg, Oral, Daily tamsulosin, 0.4 mg, Oral, Daily traMADol, 50 mg, Oral, q8h traZODone, 200 mg, Oral, Nightly Recent Labs 08/01/24 1511 08/03/24 1040 08/04/24 0033 WBC 11.0* 8.4 7.6 HGB 9.5* 9.2* 8.8* PLT 185 229 228 Recent Labs 08/01/24 1511 08/03/24 1040 08/04/24 0033 NA 132* 131* 136 K 4.1 4.4 3.9 CL 102 101 105 CO2 24 24 BUN 19 23 23 CREATININE 3.18* 2.94* 2.88* GLUCOSE 94 85 95 Recent Labs 08/01/24 1511 08/03/24 1040 AST 15 20 ALT <6 <6 BILITOT 0.4 0.3 ALKPHOS 76 75 No results found for: "TRIG", "HDL", "LDLCALC", "CHOL" No results found for: "PHART", "PO2ART", "EXW5YYQ" No results for input(s): "INR" in the last 72 hours. No results for input(s): "CKTOTAL", "CKMB", "TROPONINI" in the last 72 hours. Recent Labs 08/03/24 1040 DDIMER 0.74* No results found for: "HGBA1C" No results found for: "TSH" Urine Culture: Results for orders placed or performed during the hospital encounter of 06/28/24 Urine culture Collection Time: 06/28/24 12:54 PM Specimen: Urine, Clean Catch Result Value Ref Range Urine Culture >100,000 CFU/mL Escherichia coli (A) Susceptibility Escherichia coli - BROTH MICRODILUTION Amoxicillin / Clavulanate <=2 Susceptible ug/ml Ampicillin <=2 Susceptible ug/ml Ampicillin / Sulbactam <=2 Susceptible ug/ml Aztreonam <=1 Susceptible ug/ml Cefazolin <=4 Susceptible ug/ml Cefepime <=1 Susceptible ug/ml Ceftriaxone <=1 Susceptible ug/ml Ciprofloxacin <=0.25 Susceptible ug/ml Gentamicin <=1 Susceptible ug/ml Meropenem <=0.25 Susceptible ug/ml Nitrofurantoin <=16 Susceptible ug/ml Piperacillin / Tazobactam <=4 Susceptible ug/ml Trimethoprim / Sulfamethoxazole <=20 Susceptible ug/ml Objective: Vitals: BP 124/78 (BP Location: Right arm, Patient Position: Lying) Pulse 78 Temp 36.4 C (97.6 F) (Temporal) Resp 12 Ht 5' 5" (1.651 m) Wt 262 lb 1.6 oz (119 kg) SpO2 96% BMI 43.62 kg/m Pulse Ox: SpO2 Av.9 % Min: 93 % Max: 100 % Supplemental O2: Past 24 hours events: admitted overnight GENERAL: comfortable, appears somnolent CARDIOVASCULAR: RRR no murmurs RESPIRATORY: clear without wheezes ABDOMEN: non-distended, soft EXTREMITIES: moving all spontaneously ANATOMY/TUBES/LINES: N/A Running Summary, Assessment, and Plan Jessy is a 59 y.o. female with PMH of [as below] who presents with [complaints of generalized joint pain]. Of note patient was also recently seen by ED on 08/01 for contusion of right ankle and lower extremity pain and swelling. Was discharged in stable condition directly from the ED at that time. In the ED [at [facility]] Vital signs were stable patient was afebrile heart rate in the 60s, blood pressure soft between 96-110/50-60s. Labs with sodium of 132-131, creatinine with elevation from 08/01 at 3.1 8 repeat today was 2.94 which is closer to patient's baseline around 2.6-3.0. Albumin 3.2, proBNP 784, CBC largely unremarkable except for anemia in the nines, x-ray of her joints including foot from 08/01 unremarkable. Chest x-ray not repeated today but she did have vascular ultrasound of her calves to rule out any DVT which was negative. Admitted for further evaluation and management. She stated that her insurance quit covering Butrans patch and now she is having diffuse body pain. Add PRN Oxy. PT/OT Discharge pending dispo Acute, acute on chronic, unstable/uncontrolled chronic problems/diagnoses: B/L LE edema CKD IV (baseline Cr ~ 2.5) Failure to thrive Hyponatremia Chronic pain Stable chronic problems affecting care, new non-acute diagnoses: Hypothyroidism Depression and anxiety Asperger syndrome Debility Body mass index is 43.62 kg/m ., BMI Classification: Class 3 obesity (BMI >40.0) Chronic anemia HTN HLD Right foot laterally dislocated second MTP joint and laterally subluxed or dislocated first MTP joint As a result of the above findings & factors, the following mgmt was pursued: - PRN Vicodin - [place]ARRS reviewed, takes Klonopin 0.5 mg BID PRN, last Butrans fill was May 2024 for only 30 days - Check UA - Nephro consulted for CKD IV optimization - am labs, replace lytes prn - PT/OT/CM/SW as appropriate - delirium precautions: limit night-time awakening - DVT prophylaxis: Heparin SQ Complexity: Acute illness or injury posing a threat to life or body function (HIGH). Risk: Admission to hospital-level care was considered or occurred (HIGH). Advance Directive: Full Anticipated Discharge - Date - 08/06 - 08/13 - Location - From [place], possible to SNF - Pending the following - clinical course, dispo, pain control Total time spent (which include face to face and non face to face encounters) in minutes: 53 Toxic drug monitoring/narrow therapeutic index drug monitoring : # Drug name : Heparin # Route administered : SQ # Method of monitoring : H&H # Drug name : Metoprolol # Route administered : oral # Method of monitoring : vitals (HR and BP) Extended Emergency Contact Information Primary Emergency Contact: Pita Jara Mobile Relation: Parent Preferred language: Northern Irish Mechanism Inspector needed? No Secondary Emergency Contact: EstefaniMamadou Relation: Father Kevin Grimes DO Division of Hospitalist Medicine Inpatient Medical Services/[facility] documented in this encounter [facility] 08-10-2024 Note Formatting of this n ote might be different from the original. Care Management Progress Note [facility] school superintendent following for DC, hopefully today. From [place] in [place]. Will call Pita, mother later, called her last night and left a message. Length of Stay (Days): 7 GMLOS: 2.6 [facility] 08-10-2024 Note Formatting of this n ote might be different from the original. Care Management Progress Note [employer] school superintendent following for DC, hopefully today. From [place] in [place]. Will call Pita, mother later, called her last night and left a message. Length of Stay (Days): 7 GMLOS: 2.6 [facility] 08-10-2024 Plan of care note Problem: Knowledge Deficit Goal: Patient/family/caregiver demonstrates understanding of disease process, treatment plan, medications, and discharge instructions Outcome: Progressing Problem: Potential for Falls Goal: I will remain free of falls Outcome: Progressing Problem: Discharge Barriers Goal: My discharge needs are met Outcome: Progressing Problem: Excessive Fluid Volume Goal: Fluid and electrolyte balance are achieved/maintained Outcome: Progressing Problem: Potential for Compromised Skin Integrity Goal: Skin Integrity is Maintained or Improved Outcome: Progressing Goal: Nutritional status is improving Outcome: Progressing Problem: Urinary Incontinence Goal: Perineal skin integrity is maintained or improved Outcome: Progressing [facility] 08-09-2024 Note Formatting of this n ote might be different from the original. Care Management Progress Note Nephrology following. [employer] following for [place]. From [place] in [place]. Length of Stay (Days): 6 GMLOS: 2.6 [facility] 08-09-2024 Note Formatting of this n ote might be different from the original. Care Management Progress Note Nephrology following. [employer] Packer following for [place]. From [place] in [place]. Length of Stay (Days): 6 GMLOS: 2.6 [facility] 08-09-2024 Note Care Management Prog ress Note Nephrology following. [facility] Hogshead Packer following for [place]. From [place] in [place]. Length of Stay (Days): 6 GMLOS: 2.6 [facility] 08-09-2024 Plan of care note Problem: Knowledge Deficit Goal: Patient/family/caregiver demonstrates understanding of disease process, treatment plan, medications, and discharge instructions Outcome: Progressing Problem: Potential for Falls Goal: I will remain free of falls Outcome: Progressing Problem: Discharge Barriers Goal: My discharge needs are met Outcome: Progressing Problem: Excessive Fluid Volume Goal: Fluid and electrolyte balance are achieved/maintained Outcome: Progressing Problem: Potential for Compromised Skin Integrity Goal: Skin Integrity is Maintained or Improved Outcome: Progressing Goal: Nutritional status is improving Outcome: Progressing Problem: Urinary Incontinence Goal: Perineal skin integrity is maintained or improved Outcome: Progressing [facility] 08-09-2024 Nurse Note Pt denies pain and discomfort at this time Pt voiced 0 issues and or concerns at this time Pt call light and personal items noted to be within reach Safety maintained 0815-Pt denies pain and discomfort at this time Pt voiced 0 issues and or concerns at this time 0915-pt took all am meds with no issues 1115-Pt denies pain and discomfort at this time Pt voiced 0 issues and or concerns at this time 1515-Pt denies pain and discomfort at this time Pt voiced 0 issues and or concerns at this time 1815-end of shift rounding completed at this time Pt denies pain and discomfort at this time Pt voiced 0 issues and or concerns at this time Pt call light and personal items noted to be within reach Safety maintained [facility] 08-08-2024 Plan of care note Problem: Knowledge Deficit Goal: Patient/family/caregiver demonstrates understanding of disease process, treatment plan, medications, and discharge instructions Outcome: Progressing Problem: Potential for Falls Goal: I will remain free of falls Outcome: Progressing Problem: Discharge Barriers Goal: My discharge needs are met Outcome: Progressing [facility] 08-08-2024 Plan of care note Problem: Knowledge Deficit Goal: Patient/family/caregiver demonstrates understanding of disease process, treatment plan, medications, and discharge instructions Outcome: Progressing Problem: Potential for Falls Goal: I will remain free of falls Outcome: Progressing Problem: Discharge Barriers Goal: My discharge needs are met Outcome: Progressing Problem: Excessive Fluid Volume Goal: Fluid and electrolyte balance are achieved/maintained Outcome: Progressing Problem: Potential for Compromised Skin Integrity Goal: Skin Integrity is Maintained or Improved Outcome: Progressing Goal: Nutritional status is improving Outcome: Progressing Problem: Urinary Incontinence Goal: Perineal skin integrity is maintained or improved Outcome: Progressing [facility] 08-07-2024 Note Formatting of this n ote might be different from the original. Referral placed to REHAB - [facility] via [facility] per [facility] request. Await review and response regarding ability to accept. TCC notified. [facility] 08-07-2024 Note Formatting of this n ote might be different from the original. Referral placed to REHAB - [facility] via [facility] per TCC request. Await review and response regarding ability to accept. TCC notified. [facility] 08-07-2024 Note Referral placed to [facility] - [facility] via [facility] per TCC request. Await review and response regarding ability to accept. TCC notified. [facility] 08-07-2024 Plan of care note Problem: Knowledge Deficit Goal: Patient/family/caregiver demonstrates understanding of disease process, treatment plan, medications, and discharge instructions Outcome: Progressing Problem: Potential for Falls Goal: I will remain free of falls Outcome: Progressing Problem: Discharge Barriers Goal: My discharge needs are met Outcome: Progressing Problem: Excessive Fluid Volume Goal: Fluid and electrolyte balance are achieved/maintained Outcome: Progressing Problem: Potential for Compromised Skin Integrity Goal: Skin Integrity is Maintained or Improved Outcome: Progressing Goal: Nutritional status is improving Outcome: Progressing Problem: Urinary Incontinence Goal: Perineal skin integrity is maintained or improved Outcome: Progressing [facility] 08-07-2024 Note Formatting of this n ote might be different from the original. [facility] school superintendent stated they would take patient. Task sent via [facility] to [facility] to place referral for [facility]. , [facility] 08-07-2024 Note Formatting of this n ote might be different from the original. [facility] school superintendent stated they would take patient. Task sent via [facility] to [facility] to place referral for [facility] , [facility] 08-07-2024 Note [facility] school superintendent stated they would take patient. Task sent via [facility] to [facility] to place referral for [facility]. , [facility] 08-07-2024 Note Formatting of this n ote might be different from the original. SW will place Amb request in Round Trip as Will Call for [facility]. Trip can be edited if pt not able to go to [facility]. [facility] 08-07-2024 Note Formatting of this n ote might be different from the original. SW will place Amb request in Round Trip as Will Call for [facility]. Trip can be edited if pt not able to go to [facility]. [facility] 08-07-2024 Note Formatting of this n ote might be different from the original. Spoke with patient, Stated [facility], will have [facility] aware. [facility] 08-07-2024 Note Formatting of this n ote might be different from the original. Spoke with patient, Stated [facility], will have [facility] aware. [facility] 08-07-2024 Note Formatting of this n ote might be different from the original. [place] and will update [place] [facility] 08-07-2024 Note Formatting of this n ote might be different from the original. [place] following and will update [place] [facility] [employer] 08-07-2024 Note Formatting of this n ote might be different from the original. [facility] reviewed media- no DPOA on file. [place] checked probate court- ( [facility]) no results of guardianship. [facility] [facility] [employer] 08-07-2024 Note Formatting of this n ote might be different from the original. ANTON reviewed media- no DPOA on file. ANTON checked probate court- ( [facility]) no results of guardianship. [facility] [employer] 08-07-2024 Note Formatting of this n ote might be different from the original. Care Management Progress Note Patient was from [place] agreed to SNF. Has list, will stop by today and get choices. Length of Stay (Days): 4 GMLOS: 2.6 [facility] [employer] 08-07-2024 Note Formatting of this n ote might be different from the original. Care Management Progress Note Patient was from [place] agreed to SNF. Has list, will stop by today and get choices. Length of Stay (Days): 4 GMLOS: 2.6 [facility] 08-07-2024 Note Care Management Prog ress Note Patient was from [place] agreed to SNF. Has list, will stop by today and get choices. Length of Stay (Days): 4 GMLOS: 2.6 [facility] 08-07-2024 Plan of care note Problem: Knowledge Deficit Goal: Patient/family/caregiver demonstrates understanding of disease process, treatment plan, medications, and discharge instructions Outcome: Progressing Problem: Potential for Falls Goal: I will remain free of falls Outcome: Progressing Problem: Discharge Barriers Goal: My discharge needs are met Outcome: Progressing Problem: Excessive Fluid Volume Goal: Fluid and electrolyte balance are achieved/maintained Outcome: Progressing Problem: Potential for Compromised Skin Integrity Goal: Skin Integrity is Maintained or Improved Outcome: Progressing Goal: Nutritional status is improving Outcome: Progressing Problem: Urinary Incontinence Goal: Perineal skin integrity is maintained or improved Outcome: Progressing [facility] 08-06-2024 Note Formatting of this n ote might be different from the original. Pt is from assisted living level of care. PT recommending SNF. OT eval pending.TCC spoke to pt at bedside. She is agreeable to SNF. TCC provided her with list. Said she needs help to pick choices. Told TCC to call mother to help. TCC called and left HIPAA VM with mother Pita at this time. TCC updated SW as [place] is normally from [place] LOC. Plan is SNF TBD. TCC will follow for SNF choices. [facility] 08-06-2024 Note Formatting of this n ote might be different from the original. Pt is from assisted living level of care. PT recommending SNF. OT eval pending.TCC spoke to pt at bedside. She is agreeable to SNF. TCC provided her with list. Said she needs help to pick choices. Told TCC to call mother to help. TCC called and left HIPAA VM with mother Pita at this time. TCC updated SW as pt is normally from [facility]. Plan is SNF TBD. TCC will follow for SNF choices. [facility] [employer] 08-06-2024 Note Formatting of this n ote might be different from the original. Pt from [facility] in [place]. SW called and spoke with nurse. Pt is a one person assist for dressing bathing, etc. Pt was able to use a walker by herself to get meals and meds. Sometimes pt does not want to walk to get meals so thy bring them to her. Pt will need to be a one person assist to return. SW will follow. [facility] [employer] 08-06-2024 Note Formatting of this n ote might be different from the original. Pt from [facility] in [place]. SW called and spoke with nurse. Pt is a one person assist for dressing bathing, etc. Pt was able to use a walker by herself to get meals and meds. Sometimes pt does not want to walk to get meals so thy bring them to her. Pt will need to be a one person assist to return. SW will follow. [facility] 08-06-2024 Plan of care note Problem: Knowledge Deficit Goal: Patient/family/caregiver demonstrates understanding of disease process, treatment plan, medications, and discharge instructions Outcome: Progressing Problem: Potential for Falls Goal: I will remain free of falls Outcome: Progressing [facility] 08-05-2024 Plan of care note Problem: Knowledge Deficit Goal: Patient/family/caregiver demonstrates understanding of disease process, treatment plan, medications, and discharge instructions Outcome: Progressing Problem: Potential for Falls Goal: I will remain free of falls Outcome: Progressing Problem: Discharge Barriers Goal: My discharge needs are met Outcome: Progressing Problem: Excessive Fluid Volume Goal: Fluid and electrolyte balance are achieved/maintained Outcome: Progressing [facility] 08-05-2024 Hospital Discharge instructions Jarrell Steiner LPN - 08/05/2024 8:46 AM EST Images from the original note were not included. Continuity of Care Form Patient Name: Jessy Mckeon : 1965 Admit date: 08/03/2024 Discharge date: 08/10/24 Code Status Order: Full Code Advance Directives: N Admitting Physician: Mariann Byrnes MD PCP: Edith Pierce MD Discharging Nurse: Jarrell Steiner LPN Discharging Hospital Unit/Room#: W5-525/W5-525 B Discharging Unit Emergency Contact: Extended Emergency Contact Information Primary Emergency Contact: Pita Jara [employer] Relation: Parent Preferred language: Northern Irish Mechanism Inspector needed? 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 CHOLECYSTECTOMY COLON SURGERY c-diff COLONOSCOPY 03/28/2018 no polyps UPPER GASTROINTESTINAL ENDOSCOPY 03/28/2018 Immunization History: Immunization History Administered Date(s) Administered Covid-19, Pfizer Bearden Top, Do Not Dilute, (Age 12 Y+), Im, L 09/22/2021, 02/03/2022 Influenza, Unspecified 07/04/2020 Influenza, injectable, quadrivalent 06/20/2023 Pfizer SARS-CoV-2 Vaccination 12/05/2020, 12/26/2020 Pneumococcal Conjugate PCV 13 07/17/2018 Pneumococcal Polysaccharide PPSV23 08/31/2019 Tdap 12/04/2018 Active Problems: Medical Problems Problem List * (Principal) Fluid overload Urinary tract infection Urinary tract infection without hematuria, site unspecified Chronic renal disease, stage IV (HCC) Chronic kidney disease, stage 3b (HCC) Acute cystitis without hematuria Hypervolemia, unspecified hypervolemia type Urge incontinence of urine Dyspnea Anxiety Schizoaffective disorder (CMS/HCC) (HCC) Chest pain Iron (Fe) deficiency anemia GERD (gastroesophageal reflux disease) Depression Suicidal ideations Acute gastric ulcer without hemorrhage or perforation Hypothyroidism Overview Signed 05/27/2022 2:10 PM by Interface, Incoming Problems- [facility] Conversion Dr esposito Urinary incontinence Diverticulosis of large intestine without diverticulitis Chronic antral gastritis First degree hemorrhoids Nocturia Rotator cuff strain Osteoarthritis of patellofemoral joint Urge incontinence Urinary retention Overview Signed 05/27/2022 2:10 PM by Interface, Incoming Problems- [employer] Conversion Updating Deprecated Diagnoses Localized edema Morbid obesity with BMI of 45.0-49.9, adult (HCC) Hypomagnesemia JOSE A (acute kidney injury) (HCC) Chronic bilateral low back pain with bilateral sciatica Primary hypothyroidism Psychogenic polydipsia Pneumonia Hyponatremia Hypertension Bipolar disorder (HCC) Lung infiltrate on CT Chronic schizoaffective disorder (HCC) Isolation/Infection: No active isolations No active infections Nurse Assessment: Last Vital Signs: BP 130/77 (BP Location: Right arm, Patient Position: Lying) Pulse 63 Temp 36.4 C (97.6 F) (Temporal) Resp 18 Ht 5' 5" (1.651 m) Wt 261 lb 0.4 oz (118 kg) SpO2 99% BMI 43.44 kg/m Last documented pain score (0-10 scale): Last Weight: Wt Readings from Last 1 Encounters: 08/05/24 261 lb 0.4 oz (118 kg) Mental Status: IRASEMA Patient Mental Status: oriented and alert IV Access: IRASEMA IV Access: None Nursing Mobility/ADLs: Walking Minimal assistance Transfer Minimal assistance Bathing Minimal assistance Dressing Minimal assistance Toileting Minimal assistance Feeding Independent Automation And Controls Manager Minimal assistance Med Delivery yes Wound Care Documentation and Therapy: Elimination: Continence: Bowel: yes Bladder: no Urinary Catheter: None Colostomy/Ileostomy/Ileal Conduit: None Date of Last BM: 08/08/24 Intake/Output Summary (Last 24 hours) at 08/05/2024 0846 Last data filed at 08/05/2024 0102 Gross per 24 hour Intake 1040 ml Output -- Net 1040 ml I/O last 3 completed shifts: In: 1780 (15 mL/kg) [P.O.:1780] Out: 1200 (10.1 mL/kg) [Urine:1200 (0.3 mL/kg/hr)] Weight: 118.4 kg Safety Concerns: at risk for falls Impairments/Disabilities: none Nutrition Therapy: Current Nutrition Therapy: Oral diet: regular diet low potassium <3000mg/day Routes of Feeding: oral Liquids: thin liquids Daily Fluid Restriction: no Last Modified Barium Swallow with Video (Video Swallowing Test): not done Treatments at the Time of Hospital Discharge: Respiratory Treatments: n/a Oxygen Therapy: is not on home oxygen therapy. Ventilator: No ventilator support Rehab Therapies: physical therapy, nursing, and aide Weight Bearing Status/Restrictions: no restriction Other Medical Equipment (for information only, NOT a DME order): none Other Treatments: n/a Patient's personal belongings (please select all that are sent with patient): none RN SIGNATURE: MANAGEMENT/SOCIAL WORK SECTION Inpatient Status Date: 08/03/24 Discharging to Facility/ Agency Name: [facility] Address:[address] [place] [address] Fax: Dialysis Facility (if applicable) Name: Address: Dialysis Schedule: Phone: Fax: Clinical Rehab Specialist/Egg Breaker signature: ICIAN SECTION Name: Jessy Mckeon Prognosis: excellent Condition at Discharge: stable Rehab Potential (if transferring to Rehab): excellent Recommended Labs or Other Treatments After Discharge: BMP/CBC within 3 days. Follow up with PCP within 1 week to review all medications and findings of this admission. B/L LE edema Acute renal insufficiency/CKD IV (baseline Cr ~ 2.5) Renal US: No hydro Nephrology consulted Renal function now around baseline Hyponatremia Noncompliant with fluid restriction Appreciate nephrology Failure to thrive PT/OT recommending SNF, patient agreeable E. coli UTI Completed ceftriaxone 08/08 Follow urine culture Chronic pain Per previous provider: [facility] reviewed, takes Klonopin 0.5 mg BID PRN, last [facility] fill was May 2024 for only 30 days, insurance quit covering so it was stopped Started PRN Vicodin Stable chronic problems affecting care, new non-acute diagnoses: Hypothyroidism Depression and anxiety Asperger syndrome Debility Body mass index is 43.62 kg/m ., BMI Classification: Class 3 obesity (BMI >40.0) Chronic anemia HTN HLD Right foot laterally dislocated second MTP joint and laterally subluxed or dislocated first MTP joint The individual is being admitted to a nursing facility directly from an [facility] or a unit of a [facility] that is not operated by or licensed by [facility] under section 5119.14 or 5160-3-15.1 5 The individual requires the level of services provided by a nursing facility for the condition for which he or she was treated in the hospital and, Physician Certification: I certify the above information and transfer of Jessy Mckeon is necessary for the continuing treatment of the diagnosis listed and that she requires custodial facility for less than 30 days. Update Admission H&P: No change in H&P PHYSICIAN SIGNATURE: documented in this encounter [facility] 08-05-2024 Nurse Note Pt refused bloodwork multiple times throughout night, benefits of daily bloodwork explained to pt. Unable to collect bloodwork, provider notified. [facility] 08-04-2024 Plan of care note Problem: Knowledge Deficit Goal: Patient/family/caregiver demonstrates understanding of disease process, treatment plan, medications, and discharge instructions Outcome: Progressing Problem: Potential for Falls Goal: I will remain free of falls Outcome: Progressing Problem: Discharge Barriers Goal: My discharge needs are met Outcome: Progressing Problem: Excessive Fluid Volume Goal: Fluid and electrolyte balance are achieved/maintained Outcome: Progressing [facility] 08-04-2024 Consult note Associated Order (s): IP CONSULT TO NEPHROLOGY Images from the original note were not included. Initial Nephrology Consult Note Patient: Jessy Mckeon Room number: [id number]/[id number] B Date of Admit: 08/03/2024 LOS: 1 days Referring physician: Kevin Grimes DO Outpatient Leach Cell Operator: Eva Andre MD Reason for Consult: Asked to see/evaluate by primary service for opinion regarding: abnormal renal labs. Assessment/Plan: 1. CKD stage IV with proteinuria-baseline Scr 2.4 mg/dL in 2022-early 2023. Recent admit in Jun 2024 with Scr 2.6-2.8 mg/dL. [place] related to prior lithium use, tubulointerstitial disease and history of obstructive uropathy. Check PVR. 2. 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 Urine osmolality usually fixed around 116-118. 3. Hx of psychogenic water drinking, ? Related to meds. 4. Vitamin D deficiency-begin supplemennt 5. Secondary hyperparathyroidism - recheck after correction of vitamin D deficit. 6. Anemia due to CKD and relative iron deficiency. Received Venofer 400 mg load in Jun 2024. Medication dose adjustment: CrCl < 25 ml/min. Will follow along as directed. Thank you for allowing us to participate in the care of this patient. HPI: Jessy Mckeon is a 59 y.o. female with a past medical history of: CKD stage IV, bipolar disorder, prior lithium use > 20 years, nephrogenic DI, hypothyroidism, vitamin D deficiency, major depression s/p ECT remotely, who was admitted by,Mariann Byrnes MD, for Peripheral edema [R60.0] Failure to thrive in adult [R62.7] Fluid overload [E87.70] Hypervolemia, unspecified hypervolemia type [E87.70] Anemia, unspecified type [D64.9] Chronic kidney disease, unspecified CKD stage [N18.9]. Recent [place] ER evaluation after mechanical fall with R foot contusion/swelling. Sent to [facility] ER for generalized body aches, leg edema, and patient claim of current facility being unable to attend to her needs. BNP 784, weight 262 lbs (was 275 lbs in Jun 2024). PMHx: Past Medical History: Diagnosis Date Acid reflux Anxiety Arthritis Asperger syndrome Bipolar disorder (HCC) Chronic kidney disease stage 4 kidney failure Chronic pain Depression Edema of both legs GERD (gastroesophageal reflux disease) Hemorrhoids Hyperlipidemia Hypertension Hypothyroidism Iron (Fe) deficiency anemia Nephrogenic diabetes insipidus (HCC) Pain management Retention of urine, unspecified Sciatica SOB (shortness of breath) GRANT Type II or unspecified type diabetes mellitus without mention of complication, not stated as uncontrolled (HCC) Urinary incontinence nightly Past Surgical History: Past Surgical History: Procedure Laterality Date 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 CHOLECYSTECTOMY COLON SURGERY c-diff COLONOSCOPY 03/28/2018 no polyps UPPER GASTROINTESTINAL ENDOSCOPY 03/28/2018 Family History: Family History Problem Relation Name Age of Onset Hypertension Mother Cancer Father Colon cancer Maternal Grandmother Cancer Brother Social History: Social History Socioeconomic History Marital status: Single Spouse name: Not on file Number of children: Not on file Years of education: Not on file Highest education level: Not on file Occupational History Not on file Tobacco Use Smoking status: Former Smokeless tobacco: Never Vaping Use Vaping status: Never Used Substance and Sexual Activity Alcohol use: No Alcohol/week: 0.0 standard drinks of alcohol Drug use: No Sexual activity: Not on file Other Topics Concern Not on file Social History Narrative Not on file Social Drivers of Health Financial Resource Strain: Not on file Food Insecurity: No Food Insecurity (08/03/2024) Hunger Vital Sign Worried About Running Out of Food in the Last Year: Never true Ran Out of Food in the Last Year: Never true Transportation Needs: No Transportation Needs (08/03/2024) PRAPARE - Transportation Lack of Transportation (Medical): No Lack of Transportation (Non-Medical): No Physical Activity: Not on file Stress: Not on file Social Connections: Not on file Intimate Partner Violence: Not At Risk (08/03/2024) Humiliation, Afraid, Rape, and Kick questionnaire Fear of Current or Ex-Partner: No Emotionally Abused: No Physically Abused: No Sexually Abused: No Housing Stability: Low Risk (08/03/2024) Housing Stability Vital Sign Unable to Pay for Housing in the Last Year: No Number of Times Moved in the Last Year: 1 Homeless in the Last Year: No Medications: Scheduled Meds:acetaminophen, 650 mg, Oral, TID amLODIPine, 5 mg, Oral, Daily divalproex, 250 mg, Oral, TID WC DULoxetine, 60 mg, Oral, Daily heparin, 5,000 Units, SubCUTAneous, 2 times per day hydrALAZINE, 50 mg, Oral, TID lamoTRIgine, 200 mg, Oral, Nightly levothyroxine, 125 mcg, Oral, Daily metoprolol tartrate, 100 mg, Oral, BID pantoprazole, 40 mg, Oral, qAM AC risperiDONE, 6 mg, Oral, Nightly rosuvastatin, 10 mg, Oral, Daily tamsulosin, 0.4 mg, Oral, Daily traZODone, 200 mg, Oral, Nightly Continuous Infusions: Allergies: Allergies Allergen Reactions Benztropine Disorientation and loss of muscle control Diphenhydramine Disorientation Nsaids CKD Stage 3 Other Anticholinergics: cause disorientation and loss of muscle control Venlafaxine Hives Review of Systems: All other ROS negative, except for those noted above in HPI. Physical Exam: Vitals: 08/03/24 2231 08/04/24 0337 08/04/24 0856 08/04/24 1607 BP: 142/97 124/78 106/57 105/56 BP Location: Left arm Right arm Right arm Right arm Patient Position: Sitting Lying Sitting Lying Pulse: 78 78 83 72 Resp: 18 08 01 18 Temp: 36.2 C (97.1 F) 36.4 C (97.6 F) (!) 35.8 C (96.4 F) 36.2 C (97.2 F) TempSrc: Temporal Temporal Temporal Temporal SpO2: 98% 96% 99% 99% Weight: 119 kg (262 lb 3.2 oz) 119 kg (262 lb 1.6 oz) Height: 1.651 m (5' 5") Today's weight: Weight: 119 kg (262 lb 1.6 oz) Admission weight: Weight: 125 kg (275 lb) Wt Readings from Last 3 Encounters: 08/04/24 119 kg (262 lb 1.6 oz) 06/28/24 125 kg (275 lb 9.6 oz) 06/14/24 125 kg (276 lb) Estimated body mass index is 43.62 kg/m as calculated from the following: Height as of this encounter: 1.651 m (5' 5"). Weight as of this encounter: 119 kg (262 lb 1.6 oz). Intake/Output Summary (Last 24 hours) at 08/04/2024 1843 Last data filed at 08/04/2024 1650 Gross per 24 hour Intake 980 ml Output 1200 ml Net -220 ml FIO2 needs: No data found. General Appearance no acute distress, comfortable appearing, looks stated age. Alert and oriented x 3, chronically ill appearing HEENT Neck anicteric sclera, moist mucus membranes, normal external ears/nares, no facial edema Supple neck, midline trachea without tracheal deviation Chest symmetric, normal shape/expansion, no chest wall/sternal tenderness Heart RRR, no audible pericardial rubs Lungs clear to auscultation bilaterally, unlabored respirations without conversational dyspnea, no accessory muscle use, room air Abdomen Skin soft without distension or palpable organomegaly, normal bowel sounds, no rebound or guarding, no periumbilical bruits audible no rash or subcutaneous nodules, warm and dry skin with good turgor Musculoskeletal no synovitis or joint effusions noted, trace L leg edema no infante catheter present Neurologic no resting tremor. Able to follow commands. Psychiatric mood and affect animated, insight and judgment intact. Memory recall poor LABS: Recent Labs 08/03/24 1040 08/04/24 0033 WBC 8.4 7.6 HGB 9.2* 8.8* HCT 27.8* 27.4* MCV 95.9 97.2 PLT 229 228 Lab Results Component Value Date IRON 53 04/17/2024 TIBC 244 (L) 04/17/2024 FERRITIN 75 04/17/2024 Lab Results Component Value Date [id number] 913 04/05/2022 FOLATE >20.0 04/05/2022 Recent Labs 08/03/24 1040 08/04/24 0033 NA 131* 136 K 4.4 3.9 CL 101 105 CO2 24 24 BUN 23 23 CREATININE 2.94* 2.88* GLUCOSE 85 95 CALCIUM 9.1 8.9 ANIONGAP 6 7 Lab Results Component Value Date PTH 161.6 (H) 04/17/2024 VITD25 24 (L) 04/17/2024 Lab Results Component Value Date ALT <6 08/03/2024 AST 20 08/03/2024 Lab Results Component Value Date COLORU Light Yellow 06/28/2024 CLARITYU Cloudy (A) 06/28/2024 GLUCOSEU Normal 06/28/2024 BLOODU Negative 06/28/2024 UROBILINOGEN Normal 06/28/2024 Lab Results Component Value Date HEPCAB Not Detected 08/25/2023 Diagnostic Studies: CXR: reviewed in PACS Personally reviewed MARS, labs, radiologic studies and notes. TS INCLUDE 234 BEDS AT [facility] office: [phone] Pager: [phone] [facility] [place] Phone: 08-04-2024 Consult note Associated Order (s): IP CONSULT TO NEPHROLOGY Images from the original note were not included. Initial Nephrology Consult Note Patient: Jessy Mckeon Room number: [id number]/[id number] B Date of Admit: 08/03/2024 LOS: 1 days Referring physician: Kevin Grimes DO Outpatient Leach Cell Operator: Eva Andre MD Reason for Consult: Asked to see/evaluate by primary service for opinion regarding: abnormal renal labs. Assessment/Plan: 1. CKD stage IV with proteinuria-baseline Scr 2.4 mg/dL in 2022-early 2023. Recent admit in Jun 2024 with Scr 2.6-2.8 mg/dL. [place] related to prior lithium use, tubulointerstitial disease and history of obstructive uropathy. Check PVR. 2. 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 Urine osmolality usually fixed around 116-118. 3. Hx of psychogenic water drinking, ? Related to meds. 4. Vitamin D deficiency-begin supplemennt 5. Secondary hyperparathyroidism - recheck after correction of vitamin D deficit. 6. Anemia due to CKD and relative iron deficiency. Received Venofer 400 mg load in Jun 2024. Medication dose adjustment: CrCl < 25 ml/min. Will follow along as directed. Thank you for allowing us to participate in the care of this patient. HPI: Jessy Mckeon is a 59 y.o. female with a past medical history of: CKD stage IV, bipolar disorder, prior lithium use > 20 years, nephrogenic DI, hypothyroidism, vitamin D deficiency, major depression s/p ECT remotely, who was admitted by,Mariann Byrnes MD, for Peripheral edema [R60.0] Failure to thrive in adult [R62.7] Fluid overload [E87.70] Hypervolemia, unspecified hypervolemia type [E87.70] Anemia, unspecified type [D64.9] Chronic kidney disease, unspecified CKD stage [N18.9]. Recent [place] ER evaluation after mechanical fall with R foot contusion/swelling. Sent to [facility] ER for generalized body aches, leg edema, and patient claim of current facility being unable to attend to her needs. BNP 784, weight 262 lbs (was 275 lbs in Jun 2024). PMHx: Past Medical History: Diagnosis Date Acid reflux Anxiety Arthritis Asperger syndrome Bipolar disorder (HCC) Chronic kidney disease stage 4 kidney failure Chronic pain Depression Edema of both legs GERD (gastroesophageal reflux disease) Hemorrhoids Hyperlipidemia Hypertension Hypothyroidism Iron (Fe) deficiency anemia Nephrogenic diabetes insipidus (HCC) Pain management Retention of urine, unspecified Sciatica SOB (shortness of breath) GRANT Type II or unspecified type diabetes mellitus without mention of complication, not stated as uncontrolled (HCC) Urinary incontinence nightly Past Surgical History: Past Surgical History: Procedure Laterality Date 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 CHOLECYSTECTOMY COLON SURGERY c-diff COLONOSCOPY 03/28/2018 no polyps UPPER GASTROINTESTINAL ENDOSCOPY 03/28/2018 Family History: Family History Problem Relation Name Age of Onset Hypertension Mother Cancer Father Colon cancer Maternal Grandmother Cancer Brother Social History: Social History Socioeconomic History Marital status: Single Spouse name: Not on file Number of children: Not on file Years of education: Not on file Highest education level: Not on file Occupational History Not on file Tobacco Use Smoking status: Former Smokeless tobacco: Never Vaping Use Vaping status: Never Used Substance and Sexual Activity Alcohol use: No Alcohol/week: 0.0 standard drinks of alcohol Drug use: No Sexual activity: Not on file Other Topics Concern Not on file Social History Narrative Not on file Social Drivers of Health Financial Resource Strain: Not on file Food Insecurity: No Food Insecurity (08/03/2024) Hunger Vital Sign Worried About Running Out of Food in the Last Year: Never true Ran Out of Food in the Last Year: Never true Transportation Needs: No Transportation Needs (08/03/2024) PRAPARE - Transportation Lack of Transportation (Medical): No Lack of Transportation (Non-Medical): No Physical Activity: Not on file Stress: Not on file Social Connections: Not on file Intimate Partner Violence: Not At Risk (08/03/2024) Humiliation, Afraid, Rape, and Kick questionnaire Fear of Current or Ex-Partner: No Emotionally Abused: No Physically Abused: No Sexually Abused: No Housing Stability: Low Risk (08/03/2024) Housing Stability Vital Sign Unable to Pay for Housing in the Last Year: No Number of Times Moved in the Last Year: 1 Homeless in the Last Year: No Medications: Scheduled Meds:acetaminophen, 650 mg, Oral, TID amLODIPine, 5 mg, Oral, Daily divalproex, 250 mg, Oral, TID WC DULoxetine, 60 mg, Oral, Daily heparin, 5,000 Units, SubCUTAneous, 2 times per day hydrALAZINE, 50 mg, Oral, TID lamoTRIgine, 200 mg, Oral, Nightly levothyroxine, 125 mcg, Oral, Daily metoprolol tartrate, 100 mg, Oral, BID pantoprazole, 40 mg, Oral, qAM AC risperiDONE, 6 mg, Oral, Nightly rosuvastatin, 10 mg, Oral, Daily tamsulosin, 0.4 mg, Oral, Daily traZODone, 200 mg, Oral, Nightly Continuous Infusions: Allergies: Allergies Allergen Reactions Benztropine Disorientation and loss of muscle control Diphenhydramine Disorientation Nsaids CKD Stage 3 Other Anticholinergics: cause disorientation and loss of muscle control Venlafaxine Hives Review of Systems: All other ROS negative, except for those noted above in HPI. Physical Exam: Vitals: 08/03/24 2231 08/04/24 0337 08/04/24 0856 08/04/24 1607 BP: 142/97 124/78 106/57 105/56 BP Location: Left arm Right arm Right arm Right arm Patient Position: Sitting Lying Sitting Lying Pulse: 78 78 83 72 Resp: 18 08 01 18 Temp: 36.2 C (97.1 F) 36.4 C (97.6 F) (!) 35.8 C (96.4 F) 36.2 C (97.2 F) TempSrc: Temporal Temporal Temporal Temporal SpO2: 98% 96% 99% 99% Weight: 119 kg (262 lb 3.2 oz) 119 kg (262 lb 1.6 oz) Height: 1.651 m (5' 5") Today's weight: Weight: 119 kg (262 lb 1.6 oz) Admission weight: Weight: 125 kg (275 lb) Wt Readings from Last 3 Encounters: 08/04/24 119 kg (262 lb 1.6 oz) 06/28/24 125 kg (275 lb 9.6 oz) 06/14/24 125 kg (276 lb) Estimated body mass index is 43.62 kg/m as calculated from the following: Height as of this encounter: 1.651 m (5' 5"). Weight as of this encounter: 119 kg (262 lb 1.6 oz). Intake/Output Summary (Last 24 hours) at 08/04/2024 1843 Last data filed at 08/04/2024 1650 Gross per 24 hour Intake 980 ml Output 1200 ml Net -220 ml FIO2 needs: No data found. General Appearance no acute distress, comfortable appearing, looks stated age. Alert and oriented x 3, chronically ill appearing HEENT Neck anicteric sclera, moist mucus membranes, normal external ears/nares, no facial edema Supple neck, midline trachea without tracheal deviation Chest symmetric, normal shape/expansion, no chest wall/sternal tenderness Heart RRR, no audible pericardial rubs Lungs clear to auscultation bilaterally, unlabored respirations without conversational dyspnea, no accessory muscle use, room air Abdomen Skin soft without distension or palpable organomegaly, normal bowel sounds, no rebound or guarding, no periumbilical bruits audible no rash or subcutaneous nodules, warm and dry skin with good turgor Musculoskeletal no synovitis or joint effusions noted, trace L leg edema no infante catheter present Neurologic no resting tremor. Able to follow commands. Psychiatric mood and affect animated, insight and judgment intact. Memory recall poor LABS: Recent Labs 08/03/24 1040 08/04/24 0033 WBC 8.4 7.6 HGB 9.2* 8.8* HCT 27.8* 27.4* MCV 95.9 97.2 PLT 229 228 Lab Results Component Value Date IRON 53 04/17/2024 TIBC 244 (L) 04/17/2024 FERRITIN 75 04/17/2024 Lab Results Component Value Date [id number] 913 04/05/2022 FOLATE >20.0 04/05/2022 Recent Labs 08/03/24 1040 08/04/24 0033 NA 131* 136 K 4.4 3.9 CL 101 105 CO2 24 24 BUN 23 23 CREATININE 2.94* 2.88* GLUCOSE 85 95 CALCIUM 9.1 8.9 ANIONGAP 6 7 Lab Results Component Value Date PTH 161.6 (H) 04/17/2024 VITD25 24 (L) 04/17/2024 Lab Results Component Value Date ALT <6 08/03/2024 AST 20 08/03/2024 Lab Results Component Value Date COLORU Light Yellow 06/28/2024 CLARITYU Cloudy (A) 06/28/2024 GLUCOSEU Normal 06/28/2024 BLOODU Negative 06/28/2024 UROBILINOGEN Normal 06/28/2024 Lab Results Component Value Date HEPCAB Not Detected 08/25/2023 Diagnostic Studies: CXR: reviewed in PACS Personally reviewed MARS, labs, radiologic studies and notes. TS INCLUDE 234 BEDS AT THE [facility] office: [phone] Pager: [phone] documented in this encounter [facility] 08-04-2024 Plan of care note Problem: Knowledge Deficit Goal: Patient/family/caregiver demonstrates understanding of disease process, treatment plan, medications, and discharge instructions Outcome: Progressing Problem: Potential for Falls Goal: I will remain free of falls Outcome: Progressing Problem: Discharge Barriers Goal: My discharge needs are met Outcome: Progressing Problem: Excessive Fluid Volume Goal: Fluid and electrolyte balance are achieved/maintained Outcome: Progressing [employer] 08-04-2024 Plan of care note Problem: Knowledge Deficit Goal: Patient/family/caregiver demonstrates understanding of disease process, treatment plan, medications, and discharge instructions 08/04/2024 0419 by Afua Morales RN Outcome: Progressing 08/03/2024 2237 by Afua Morales RN Outcome: Progressing Problem: Potential for Falls Goal: I will remain free of falls 08/04/2024 0419 by Afua Morales RN Outcome: Progressing 08/03/2024 2237 by Afua Morales RN Outcome: Progressing Problem: Discharge Barriers Goal: My discharge needs are met 08/04/2024 0419 by Afua Morales RN Outcome: Progressing 08/03/2024 2237 by Afua Morales RN Outcome: Progressing Problem: Excessive Fluid Volume Goal: Fluid and electrolyte balance are achieved/maintained 08/04/2024 0419 by Afua Morales RN Outcome: Progressing 08/03/2024 2237 by Afua Morales RN Outcome: Progressing [place] 08-03-2024 Plan of care note Problem: Knowledge Deficit Goal: Patient/family/caregiver demonstrates understanding of disease process, treatment plan, medications, and discharge instructions Outcome: Progressing Problem: Potential for Falls Goal: I will remain free of falls Outcome: Progressing Problem: Discharge Barriers Goal: My discharge needs are met Outcome: Progressing Problem: Excessive Fluid Volume Goal: Fluid and electrolyte balance are achieved/maintained Outcome: Progressing [employer] 08-03-2024 History and physical note Attending History and Physical Admit Date: 08/03/2024 PCP: Edith Pierce MD CHIEF COMPLAINT: [Joint pain] Reason for Admission: [Peripheral edema, failure to thrive, CKD and anemia] History Obtained From: EHR and ED HISTORY OF PRESENT ILLNESS: Jessy is a 59 y.o. female with PMH of [as below] who presents with [complaints of generalized joint pain]. Of note patient was also recently seen by ED on 08/01 for contusion of right ankle and lower extremity pain and swelling. Was discharged in stable condition directly from the ED at that time. In the ED, [at [facility] today,]Vital signs were stable patient was afebrile heart rate in the 60s, blood pressure soft between 96-110/50-60s. Labs with sodium of 132-131, creatinine with elevation from 08/01 at 3.1 8 repeat today was 2.94 which is closer to patient's baseline around 2.6-3.0. Albumin 3.2, proBNP 784, CBC largely unremarkable except for anemia in the nines, x-ray of her joints including foot from 08/01 unremarkable. Chest x-ray not repeated today but she did have vascular ultrasound of her calves to rule out any DVT which was negative. Given patient was lethargic and poor historian with lower edema swelling ED wanted to send patient over for further evaluation and management. She got albumin and lasix prior to being sent over. Past Medical History: Past Medical History: Diagnosis Date Acid reflux Anxiety Arthritis Asperger syndrome Bipolar disorder (HCC) Chronic kidney disease stage 4 kidney failure Chronic pain Depression Edema of both legs GERD (gastroesophageal reflux disease) Hemorrhoids Hyperlipidemia Hypertension Hypothyroidism Iron (Fe) deficiency anemia Nephrogenic diabetes insipidus (HCC) Pain management Retention of urine, unspecified Sciatica SOB (shortness of breath) GRANT Type II or unspecified type diabetes mellitus without mention of complication, not stated as uncontrolled (HCC) Urinary incontinence nightly Past Surgical History: Past Surgical History: Procedure Laterality Date 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 CHOLECYSTECTOMY COLON SURGERY c-diff COLONOSCOPY 03/28/2018 no polyps UPPER GASTROINTESTINAL ENDOSCOPY 03/28/2018 Social History: Social History Socioeconomic History Marital status: Single Spouse name: Not on file Number of children: Not on file Years of education: Not on file Highest education level: Not on file Occupational History Not on file Tobacco Use Smoking status: Former Smokeless tobacco: Never Vaping Use Vaping status: Never Used Substance and Sexual Activity Alcohol use: No Alcohol/week: 0.0 standard drinks of alcohol Drug use: No Sexual activity: Not on file Other Topics Concern Not on file Social History Narrative Not on file Social Drivers of Health Financial Resource Strain: Not on file Food Insecurity: Not on file Transportation Needs: Not on file Physical Activity: Not on file Stress: Not on file Social Connections: Not on file Intimate Partner Violence: Not At Risk (03/17/2023) Humiliation, Afraid, Rape, and Kick questionnaire Fear of Current or Ex-Partner: No Emotionally Abused: No Physically Abused: No Sexually Abused: No Housing Stability: Not on file Family History: Family History Problem Relation Name Age of Onset Hypertension Mother Cancer Father Colon cancer Maternal Grandmother Cancer Brother Medications Prior to Admission: No current facility-administered medications on file prior to encounter. Current Outpatient Medications on File Prior to Encounter Medication Sig Dispense Refill amLODIPine (Norvasc) 5 MG tablet take 1 tablet by mouth once daily 30 tablet 0 buprenorphine (Butrans) 15 MCG/HR Place 20 patches on the skin Once. clonazePAM (KlonoPIN) 0.5 MG tablet Take 1 tablet (0.5 mg) by mouth 2 times daily as needed for anxiety. 60 tablet 1 divalproex (Depakote ER) 250 MG 24 hr tablet Take 1 tablet (250 mg) by mouth in the morning and 1 tablet (250 mg) at noon and 1 tablet (250 mg) in the evening. Take with meals. 90 tablet 2 DULoxetine (Cymbalta) [address] capsule Take 1 capsule (60 mg) by mouth daily. Do not crush or chew. 30 capsule 3 ergocalciferol (Vitamin D-2) 1.25 MG (51044 UT) capsule Take 1.25 mg by mouth 1 (one) time per week. hydrALAZINE (Apresoline) 50 MG tablet Take 1 tablet (50 mg) by mouth 3 times daily. 90 tablet 11 lamoTRIgine (LaMICtal) 200 MG tablet Take 1 tablet (200 mg) by mouth Nightly. 30 tablet 3 levothyroxine (Synthroid, Levoxyl) 175 MCG tablet Take 175 mcg by mouth in the morning. metoprolol tartrate (Lopressor) 100 MG tablet Take 1 tablet (100 mg) by mouth 2 times daily. 60 tablet 3 omeprazole (PriLOSEC) [address] capsule Take 1 capsule (40 mg) by mouth every morning (before breakfast). Do not crush or chew. 90 capsule 1 risperiDONE (RisperDAL) 3 MG tablet Take 2 tablets (6 mg) by mouth Nightly. 60 tablet 3 rosuvastatin (Crestor) 10 MG tablet TAKE 1 TABLET BY MOUTH DAILY 90 tablet 1 sennosides (Senokot) 8.6 MG tablet Take 2 tablets (17.2 mg) by mouth 2 times daily. 120 tablet 2 tamsulosin (Flomax) 0.4 MG 24 hr capsule Take 1 capsule (0.4 mg) by mouth daily. 30 capsule 11 traZODone (Desyrel) 100 MG tablet Take 2 tablets (200 mg) by mouth Nightly. 60 tablet 3 Allergies: Allergies Allergen Reactions Benztropine Disorientation and loss of muscle control Diphenhydramine Disorientation Nsaids CKD Stage 3 Other Anticholinergics: cause disorientation and loss of muscle control Venlafaxine Hives REVIEW OF SYSTEMS: NEG with pert pos in HPI Vitals: BP 124/70 (BP Location: Right arm, Patient Position: Lying) Pulse 68 Temp 36.8 C (98.3 F) (Oral) Resp 18 Ht 5' 2" (1.575 m) Wt 275 lb (125 kg) SpO2 100% BMI 50.30 kg/m BMI Classification: Body mass index is 50.3 kg/m . [Morbidly obese] Pulse Ox: SpO2 Av.9 % Min: 93 % Max: 100 % Supplemental O2: PHYSICAL EXAM: Physical Exam Vitals reviewed. Constitutional: General: She is not in acute distress. Appearance: She is obese. She is not ill-appearing or toxic-appearing. HENT: Head: Normocephalic. Cardiovascular: Rate and Rhythm: Normal rate. Pulmonary: Effort: Pulmonary effort is normal. No respiratory distress. Musculoskeletal: Cervical back: Neck supple. No rigidity. Right lower leg: Edema (trace to 1+) present. Left lower leg: Edema (trace to 1+) present. Skin: Findings: Bruising (right lower leg worse at ankle) present. Neurological: Mental Status: She is alert. Comments: Tremors generalized Psychiatric: Mood and Affect: Mood normal. Behavior: Behavior normal. DATA: CBC: Recent Labs 08/01/24 1511 08/03/24 1040 WBC 11.0* 8.4 RBC 3.03* 2.90* HGB 9.5* 9.2* HCT 29.3* 27.8* MCV 96.7 95.9 RDW 13.6 13.4 PLT 185 229 BMP: Recent Labs 08/01/24 1511 08/03/24 1040 NA 132* 131* K 4.1 4.4 CL 102 101 CO2 21* 24 BUN 19 23 CREATININE 3.18* 2.94* GLUCOSE 94 85 CALCIUM 9.0 9.1 ANIONGAP 9 6 LIVER PROFILE: Recent Labs 08/01/24 1511 08/03/24 1040 AST 15 20 ALT <6 <6 BILITOT 0.4 0.3 ALKPHOS 76 75 PROT 6.9 6.9 PT/INR: No results for input(s): "PROTIME", "INR" in the last 72 hours. CARDIAC ENZYMES: No results for input(s): "TROPONINI" in the last 72 hours. Procalcitonin: No results found for: "PROCAL" Urine Culture: Results for orders placed or performed during the hospital encounter of 06/28/24 Urine culture Collection Time: 06/28/24 12:54 PM Specimen: Urine, Clean Catch Result Value Ref Range Urine Culture >100,000 CFU/mL Escherichia coli (A) Susceptibility Escherichia coli - BROTH MICRODILUTION Amoxicillin / Clavulanate <=2 Susceptible ug/ml Ampicillin <=2 Susceptible ug/ml Ampicillin / Sulbactam <=2 Susceptible ug/ml Aztreonam <=1 Susceptible ug/ml Cefazolin <=4 Susceptible ug/ml Cefepime <=1 Susceptible ug/ml Ceftriaxone <=1 Susceptible ug/ml Ciprofloxacin <=0.25 Susceptible ug/ml Gentamicin <=1 Susceptible ug/ml Meropenem <=0.25 Susceptible ug/ml Nitrofurantoin <=16 Susceptible ug/ml Piperacillin / Tazobactam <=4 Susceptible ug/ml Trimethoprim / Sulfamethoxazole <=20 Susceptible ug/ml COVID-19 PCR: No results for input(s): "COVID19" in the last 72 hours. I reviewed: [x] laboratory results [x] radiographic results At the time of today's encounter. Pt was advised of the results. Data: Per HPI (LOW: 2x CAT1 or independent historian MOD: 3x CAT1 or 1x CAT3 EXTENSIVE: 3x CAT1 and 1x CAT3) Assessment Discussed management with the ED provider and agree with hospitalization. Acute, acute on chronic, unstable/uncontrolled chronic problems/diagnoses: Lower extremity swelling bilaterally CKD stage IV Failure to thrive Hyponatremia in setting of poor po? Stable chronic problems affecting care, new non-acute diagnoses: SEE PLAN BELOW Plan As a result of the above findings & factors, the following mgmt was pursued: Admitting for further evaluation and management of lower extremity swelling. Will get a UA to follow-up on any protein in urine Last echo was done 02/2022 which showed EF of 64% with no regional wall motion abnormalities Nephrology consult Will hold off on repeating echo Cont home buprenorphine or equivalent Add prn oxy Acute pain mgt to see in AM if able to help with pain PT OT as able Follow up sodiums s/p albumin and lasix - am labs, replace lytes prn - PT/OT/CM/SW - delirium precautions: increase activity - DVT prophylaxis: heparin and encourage ambulation Complexity: Acute illness with systemic symptoms (MOD). Risk: Admission to hospital-level care was considered or occurred (HIGH). Advance Directive: Prior Anticipated Discharge - Date - [08/06] - Location -D - Pending the following - improvement in acute issue leading to hosp Toxic drug monitoring/narrow therapeutic index drug monitoring : # Drug name : [Not applicable] # Route administered : N/A # Method of monitoring : N/A Extended Emergency Contact Information Primary Emergency Contact: Candice Jarady Mobile Relation: Parent Preferred language: Northern Irish Mechanism Inspector needed? No Secondary Emergency Contact: EstefaniMamadou Relation: Father ------- TOTAL time spent on H&P: [73] minutes were spent discussing patient care for this admission (including face to face, chart review, including discussion with ED providers and/or review of their notes, labs and images). Mariann Byrnes MD Division of Hospitalist Medicine [employer] [facility] 08-03-2024 Note [facility] 08-03-2024 History and physical note Attending History and Physical Admit Date: 08/03/2024 PCP: Edith Pierce MD CHIEF COMPLAINT: [Joint pain] Reason for Admission: [Peripheral edema, failure to thrive, CKD and anemia] History Obtained From: EHR and ED HISTORY OF PRESENT ILLNESS: Jessy is a 59 y.o. female with PMH of [as below] who presents with [complaints of generalized joint pain]. Of note patient was also recently seen by ED on 08/01 for contusion of right ankle and lower extremity pain and swelling. Was discharged in stable condition directly from the ED at that time. In the ED, [at [facility] today,]Vital signs were stable patient was afebrile heart rate in the 60s, blood pressure soft between 96-110/50-60s. Labs with sodium of 132-131, creatinine with elevation from 08/01 at 3.1 8 repeat today was 2.94 which is closer to patient's baseline around 2.6-3.0. Albumin 3.2, proBNP 784, CBC largely unremarkable except for anemia in the nines, x-ray of her joints including foot from 08/01 unremarkable. Chest x-ray not repeated today but she did have vascular ultrasound of her calves to rule out any DVT which was negative. Given patient was lethargic and poor historian with lower edema swelling ED wanted to send patient over for further evaluation and management. She got albumin and lasix prior to being sent over. Past Medical History: Past Medical History: Diagnosis Date Acid reflux Anxiety Arthritis Asperger syndrome Bipolar disorder (HCC) Chronic kidney disease stage 4 kidney failure Chronic pain Depression Edema of both legs GERD (gastroesophageal reflux disease) Hemorrhoids Hyperlipidemia Hypertension Hypothyroidism Iron (Fe) deficiency anemia Nephrogenic diabetes insipidus (HCC) Pain management Retention of urine, unspecified Sciatica SOB (shortness of breath) GRANT Type II or unspecified type diabetes mellitus without mention of complication, not stated as uncontrolled (HCC) Urinary incontinence nightly Past Surgical History: Past Surgical History: Procedure Laterality Date 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 CHOLECYSTECTOMY COLON SURGERY c-diff COLONOSCOPY 03/28/2018 no polyps UPPER GASTROINTESTINAL ENDOSCOPY 03/28/2018 Social History: Social History Socioeconomic History Marital status: Single Spouse name: Not on file Number of children: Not on file Years of education: Not on file Highest education level: Not on file Occupational History Not on file Tobacco Use Smoking status: Former Smokeless tobacco: Never Vaping Use Vaping status: Never Used Substance and Sexual Activity Alcohol use: No Alcohol/week: 0.0 standard drinks of alcohol Drug use: No Sexual activity: Not on file Other Topics Concern Not on file Social History Narrative Not on file Social Drivers of Health Financial Resource Strain: Not on file Food Insecurity: Not on file Transportation Needs: Not on file Physical Activity: Not on file Stress: Not on file Social Connections: Not on file Intimate Partner Violence: Not At Risk (03/17/2023) Humiliation, Afraid, Rape, and Kick questionnaire Fear of Current or Ex-Partner: No Emotionally Abused: No Physically Abused: No Sexually Abused: No Housing Stability: Not on file Family History: Family History Problem Relation Name Age of Onset Hypertension Mother Cancer Father Colon cancer Maternal Grandmother Cancer Brother Medications Prior to Admission: No current facility-administered medications on file prior to encounter. Current Outpatient Medications on File Prior to Encounter Medication Sig Dispense Refill amLODIPine (Norvasc) 5 MG tablet take 1 tablet by mouth once daily 30 tablet 0 buprenorphine (Butrans) 15 MCG/HR Place 20 patches on the skin Once. clonazePAM (KlonoPIN) 0.5 MG tablet Take 1 tablet (0.5 mg) by mouth 2 times daily as needed for anxiety. 60 tablet 1 divalproex (Depakote ER) 250 MG 24 hr tablet Take 1 tablet (250 mg) by mouth in the morning and 1 tablet (250 mg) at noon and 1 tablet (250 mg) in the evening. Take with meals. 90 tablet 2 DULoxetine (Cymbalta) [address] capsule Take 1 capsule (60 mg) by mouth daily. Do not crush or chew. 30 capsule 3 ergocalciferol (Vitamin D-2) 1.25 MG (66365 UT) capsule Take 1.25 mg by mouth 1 (one) time per week. hydrALAZINE (Apresoline) 50 MG tablet Take 1 tablet (50 mg) by mouth 3 times daily. 90 tablet 11 lamoTRIgine (LaMICtal) 200 MG tablet Take 1 tablet (200 mg) by mouth Nightly. 30 tablet 3 levothyroxine (Synthroid, Levoxyl) 175 MCG tablet Take 175 mcg by mouth in the morning. metoprolol tartrate (Lopressor) 100 MG tablet Take 1 tablet (100 mg) by mouth 2 times daily. 60 tablet 3 omeprazole (PriLOSEC) [address] capsule Take 1 capsule (40 mg) by mouth every morning (before breakfast). Do not crush or chew. 90 capsule 1 risperiDONE (RisperDAL) 3 MG tablet Take 2 tablets (6 mg) by mouth Nightly. 60 tablet 3 rosuvastatin (Crestor) 10 MG tablet TAKE 1 TABLET BY MOUTH DAILY 90 tablet 1 sennosides (Senokot) 8.6 MG tablet Take 2 tablets (17.2 mg) by mouth 2 times daily. 120 tablet 2 tamsulosin (Flomax) 0.4 MG 24 hr capsule Take 1 capsule (0.4 mg) by mouth daily. 30 capsule 11 traZODone (Desyrel) 100 MG tablet Take 2 tablets (200 mg) by mouth Nightly. 60 tablet 3 Allergies: Allergies Allergen Reactions Benztropine Disorientation and loss of muscle control Diphenhydramine Disorientation Nsaids CKD Stage 3 Other Anticholinergics: cause disorientation and loss of muscle control Venlafaxine Hives REVIEW OF SYSTEMS: NEG with pert pos in HPI Vitals: BP 124/70 (BP Location: Right arm, Patient Position: Lying) Pulse 68 Temp 36.8 C (98.3 F) (Oral) Resp 18 Ht 5' 2" (1.575 m) Wt 275 lb (125 kg) SpO2 100% BMI 50.30 kg/m BMI Classification: Body mass index is 50.3 kg/m . [Morbidly obese] Pulse Ox: SpO2 Av.9 % Min: 93 % Max: 100 % Supplemental O2: PHYSICAL EXAM: Physical Exam Vitals reviewed. Constitutional: General: She is not in acute distress. Appearance: She is obese. She is not ill-appearing or toxic-appearing. HENT: Head: Normocephalic. Cardiovascular: Rate and Rhythm: Normal rate. Pulmonary: Effort: Pulmonary effort is normal. No respiratory distress. Musculoskeletal: Cervical back: Neck supple. No rigidity. Right lower leg: Edema (trace to 1+) present. Left lower leg: Edema (trace to 1+) present. Skin: Findings: Bruising (right lower leg worse at ankle) present. Neurological: Mental Status: She is alert. Comments: Tremors generalized Psychiatric: Mood and Affect: Mood normal. Behavior: Behavior normal. DATA: CBC: Recent Labs 08/01/24 1511 08/03/24 1040 WBC 11.0* 8.4 RBC 3.03* 2.90* HGB 9.5* 9.2* HCT 29.3* 27.8* MCV 96.7 95.9 RDW 13.6 13.4 PLT 185 229 BMP: Recent Labs 08/01/24 1511 08/03/24 1040 NA 132* 131* K 4.1 4.4 CL 102 101 CO2 21* 24 BUN 19 23 CREATININE 3.18* 2.94* GLUCOSE 94 85 CALCIUM 9.0 9.1 ANIONGAP 9 6 LIVER PROFILE: Recent Labs 08/01/24 1511 08/03/24 1040 AST 15 20 ALT <6 <6 BILITOT 0.4 0.3 ALKPHOS 76 75 PROT 6.9 6.9 PT/INR: No results for input(s): "PROTIME", "INR" in the last 72 hours. CARDIAC ENZYMES: No results for input(s): "TROPONINI" in the last 72 hours. Procalcitonin: No results found for: "PROCAL" Urine Culture: Results for orders placed or performed during the hospital encounter of 06/28/24 Urine culture Collection Time: 06/28/24 12:54 PM Specimen: Urine, Clean Catch Result Value Ref Range Urine Culture >100,000 CFU/mL Escherichia coli (A) Susceptibility Escherichia coli - BROTH MICRODILUTION Amoxicillin / Clavulanate <=2 Susceptible ug/ml Ampicillin <=2 Susceptible ug/ml Ampicillin / Sulbactam <=2 Susceptible ug/ml Aztreonam <=1 Susceptible ug/ml Cefazolin <=4 Susceptible ug/ml Cefepime <=1 Susceptible ug/ml Ceftriaxone <=1 Susceptible ug/ml Ciprofloxacin <=0.25 Susceptible ug/ml Gentamicin <=1 Susceptible ug/ml Meropenem <=0.25 Susceptible ug/ml Nitrofurantoin <=16 Susceptible ug/ml Piperacillin / Tazobactam <=4 Susceptible ug/ml Trimethoprim / Sulfamethoxazole <=20 Susceptible ug/ml COVID-19 PCR: No results for input(s): "COVID19" in the last 72 hours. I reviewed: [x] laboratory results [x] radiographic results At the time of today's encounter. Pt was advised of the results. Data: Per HPI (LOW: 2x CAT1 or independent historian MOD: 3x CAT1 or 1x CAT3 EXTENSIVE: 3x CAT1 and 1x CAT3) Assessment Discussed management with the ED provider and agree with hospitalization. Acute, acute on chronic, unstable/uncontrolled chronic problems/diagnoses: Lower extremity swelling bilaterally CKD stage IV Failure to thrive Hyponatremia in setting of poor po? Stable chronic problems affecting care, new non-acute diagnoses: SEE PLAN BELOW Plan As a result of the above findings & factors, the following mgmt was pursued: Admitting for further evaluation and management of lower extremity swelling. Will get a UA to follow-up on any protein in urine Last echo was done 02/2022 which showed EF of 64% with no regional wall motion abnormalities Nephrology consult Will hold off on repeating echo Cont home buprenorphine or equivalent Add prn oxy Acute pain mgt to see in AM if able to help with pain PT OT as able Follow up sodiums s/p albumin and lasix - am labs, replace lytes prn - PT/OT/CM/SW - delirium precautions: increase activity - DVT prophylaxis: heparin and encourage ambulation Complexity: Acute illness with systemic symptoms (MOD). Risk: Admission to hospital-level care was considered or occurred (HIGH). Advance Directive: Prior Anticipated Discharge - Date - [08/06] - Location -TBD - Pending the following - improvement in acute issue leading to hosp Toxic drug monitoring/narrow therapeutic index drug monitoring : # Drug name : [Not applicable] # Route administered : N/A # Method of monitoring : N/A Extended Emergency Contact Information Primary Emergency Contact: Pita Jara Mobile Relation: Parent Preferred language: Northern Irish Mechanism Inspector needed? No Secondary Emergency Contact: EstefaniMamadou Relation: Father ------- TOTAL time spent on H&P: [73] minutes were spent discussing patient care for this admission (including face to face, chart review, including discussion with ED providers and/or review of their notes, labs and images). Mariann Byrnes MD Division of Hospitalist Medicine [facility] documented in this encounter [facility] 08-03-2024 Emergency department Note Paramedics here to get the pt to be transferred to [facility]. [facility] 08-03-2024 Emergency department Note Paramedics here to get the pt to be transferred to [facility]. Pt incontinent of urine with depends changed. Warm blankets provided and pt updated of admission status and estimated transfer times. Pt sleeping with eyes closed and respirations even and unlabored. Lights are dimmed for comfort. EMERGENCY DEPARTMENT ENCOUNTER Pt Name: Jessy Mckeon Birthdate 1965 Date of evaluation: 08/03/2024 CHIEF COMPLAINT Chief Complaint Patient presents with Joint Pain HISTORY OF PRESENT ILLNESS History provided by: Patient History limited by: Mental status change Jessy Mckeon is a 59 y.o. female who presents to the emergency department with pain" everywhere". It severe she reports. She did fall in the last 3 days. She was assessed at another facility. She denies head injury. Denies loss of consciousness. Social history: She is in assisted living. Patient reports they cannot take care of her. She is toileting in her diaper. REVIEW OF SYSTEMS Review of Systems Patient Active Problem List Diagnosis Urge incontinence of urine Dyspnea Anxiety Schizoaffective disorder (CMS/HCC) ([facility]) Chest pain Iron (Fe) deficiency anemia GERD (gastroesophageal reflux disease) Depression Suicidal ideations Acute gastric ulcer without hemorrhage or perforation Hypothyroidism Urinary incontinence Diverticulosis of large intestine without diverticulitis Chronic antral gastritis First degree hemorrhoids Nocturia Rotator cuff strain Osteoarthritis of patellofemoral joint Urge incontinence Urinary retention Localized edema Morbid obesity with BMI of 45.0-49.9, adult ([facility]) Hypomagnesemia JOSE A (acute kidney injury) ([facility]) Chronic bilateral low back pain with bilateral sciatica Primary hypothyroidism Psychogenic polydipsia Pneumonia Hyponatremia Hypertension Bipolar disorder ([facility]) Lung infiltrate on CT Chronic schizoaffective disorder ([facility]) Urinary tract infection Urinary tract infection without hematuria, site unspecified Chronic renal disease, stage IV ([facility]) Chronic kidney disease, stage 3b ([facility]) Acute cystitis without hematuria Fluid overload CURRENT MEDICATIONS Previous Medications AMLODIPINE (NORVASC) 5 MG TABLET take 1 tablet by mouth once daily BUPRENORPHINE (BUTRANS) 15 MCG/HR Place 20 patches on the skin Once. CLONAZEPAM (KLONOPIN) 0.5 MG TABLET Take 1 tablet (0.5 mg) by mouth 2 times daily as needed for anxiety. DIVALPROEX (DEPAKOTE ER) 250 MG 24 HR TABLET Take 1 tablet (250 mg) by mouth in the morning and 1 tablet (250 mg) at noon and 1 tablet (250 mg) in the evening. Take with meals. DULOXETINE (CYMBALTA) [address] CAPSULE Take 1 capsule (60 mg) by mouth daily. Do not crush or chew. ERGOCALCIFEROL (VITAMIN D-2) 1.25 MG (31844 UT) CAPSULE Take 1.25 mg by mouth 1 (one) time per week. HYDRALAZINE (APRESOLINE) 50 MG TABLET Take 1 tablet (50 mg) by mouth 3 times daily. LAMOTRIGINE (LAMICTAL) 200 MG TABLET Take 1 tablet (200 mg) by mouth Nightly. LEVOTHYROXINE (SYNTHROID, LEVOXYL) 175 MCG TABLET Take 175 mcg by mouth in the morning. METOPROLOL TARTRATE (LOPRESSOR) 100 MG TABLET Take 1 tablet (100 mg) by mouth 2 times daily. OMEPRAZOLE (PRILOSEC) [address] CAPSULE Take 1 capsule (40 mg) by mouth every morning (before breakfast). Do not crush or chew. RISPERIDONE (RISPERDAL) 3 MG TABLET Take 2 tablets (6 mg) by mouth Nightly. ROSUVASTATIN (CRESTOR) 10 MG TABLET TAKE 1 TABLET BY MOUTH DAILY SENNOSIDES (SENOKOT) 8.6 MG TABLET Take 2 tablets (17.2 mg) by mouth 2 times daily. TAMSULOSIN (FLOMAX) 0.4 MG 24 HR CAPSULE Take 1 capsule (0.4 mg) by mouth daily. TRAZODONE (DESYREL) 100 MG TABLET Take 2 tablets (200 mg) by mouth Nightly. ALLERGIES Benztropine, Diphenhydramine, Nsaids, Other, and Venlafaxine SOCIAL HISTORY Social History Tobacco Use Smoking status: Former Smokeless tobacco: Never Vaping Use Vaping status: Never Used Substance Use Topics Alcohol use: No Alcohol/week: 0.0 standard drinks of alcohol Drug use: No PHYSICAL EXAM Vitals: 08/03/24 1412 08/03/24 1505 08/03/24 1729 08/03/24 1810 BP: 116/67 101/63 119/69 102/65 BP Location: Left arm Right arm Right arm Patient Position: Lying Lying Pulse: 61 60 68 65 Resp: 18 16 16 Temp: TempSrc: SpO2: 94% 93% 97% 98% Weight: 125 kg (275 lb) Height: 1.575 m (5' 2") Physical Exam Vitals and nursing note reviewed. Constitutional: Appearance: She is obese. HENT: Head: Atraumatic. Eyes: Extraocular Movements: Extraocular movements intact. Conjunctiva/sclera: Conjunctivae normal. Pupils: Pupils are equal, round, and reactive to light. Cardiovascular: Rate and Rhythm: Normal rate and regular rhythm. Pulses: Radial pulses are 2+ on the right side and 2+ on the left side. Dorsalis pedis pulses are 2+ on the right side and 2+ on the left side. Posterior tibial pulses are 2+ on the right side and 2+ on the left side. Heart sounds: Normal heart sounds. Pulmonary: Effort: Pulmonary effort is normal. Breath sounds: Normal breath sounds. Abdominal: General: Bowel sounds are normal. Palpations: Abdomen is soft. Tenderness: There is no guarding. Musculoskeletal: Cervical back: Normal range of motion. Right lower leg: Swelling present. Left lower leg: Swelling present. Right ankle: Swelling present. Left ankle: Swelling present. Right foot: Swelling present. Left foot: Swelling present. Skin: General: Skin is warm. Capillary Refill: Capillary refill takes less than 2 seconds. Findings: Ecchymosis (right distal leg) present. Neurological: Mental Status: She is oriented to person, place, and time. She is lethargic. Cranial Nerves: Cranial nerves 2-12 are intact. Sensory: Sensation is intact. Motor: Motor function is intact. Coordination: Coordination is intact. Psychiatric: Behavior: Behavior normal. Thought Content: Thought content normal. SCREENINGS Rowley Coma Scale Best Eye Response: Spontaneous Best Verbal Response: Oriented Best Motor Response: Follows commands Rowley Coma Scale Score: 15 Medical decision making DIAGNOSTIC RESULTS Procedures/EKG: Physician EKG interpretation can be found in [facility] if done RADIOLOGY : Radiologist results reviewed: Vascular US lower extremity venous duplex bilateral Final Result No evidence of deep venous thrombus in the evaluated veins of the bilateral lower extremities from the inguinal ligaments to the upper calf. Posterior tibial and peroneal veins were not visualized due to patient habitus and subcutaneous edema. Report Dictated on Electronically Signed By: Vu Carpio MD Electronically Signed Date/Time: 08/03/2024 2:04 PM EST XR pelvis 1 or 2 views Final Result No fracture or dislocation. Report Dictated on Electronically Signed By: Mary Nielsen MD Electronically Signed Date/Time: 08/03/2024 1:50 PM EST LABS: Labs Reviewed CBC WITH AUTO DIFFERENTIAL - Abnormal Result Value Auto WBC 8.4 RBC 2.90 (*) Hemoglobin 9.2 (*) Hematocrit 27.8 (*) MCV 95.9 MCH 31.7 MCHC 33.1 RDW 13.4 Platelets 229 MPV 9.6 nRBC 0.0 Neutrophils Relative 57.8 Lymphocytes Relative 26.4 Monocytes Relative 13.2 (*) Eosinophils Relative 1.7 Basophils Relative 0.2 Immature Grans % 0.7 Neutrophils Absolute 4.8 Lymphocytes Absolute 2.2 Monocytes Absolute 1.1 (*) Eosinophils Absolute 0.1 Basophils Absolute 0.0 Immature Grans Absolute 0.1 (*) COMPREHENSIVE METABOLIC PANEL - Abnormal SODIUM 131 (*) POTASSIUM 4.4 CHLORIDE 101 CARBON DIOXIDE 24 ANION GAP 6 UREA NITROGEN 23 CREATININE 2.94 (*) GLUCOSE 85 CALCIUM 9.1 AST (SGOT) 20 ALT <6 ALKALINE PHOSPHATASE 75 ALBUMIN 3.2 (*) BILIRUBIN, TOTAL 0.3 TOTAL PROTEIN 6.9 eGFR 18.1 (*) D-DIMER,QUANTITATIVE - Abnormal D-DIMER, INNOVANCE 0.74 (*) Narrative: Innovance D-Dimer values of <0.50 mg/L FEU can be used in combination with a pre-test probability model (e.g. Well's) to exclude pulmonary embolism (PE) disease, as well as an aid in the diagnosis of deep vein thrombosis (DVT). NT PRO BNP - Abnormal NT PRO BNP 784 (*) POCT GLUCOSE METER UNSOLICITED RESULTS - Abnormal Glucose 101 (*) Narrative: Performed by: [facility], [address] [place] [address] CLIA ID: [id number] POCT GLUCOSE METER Medications ordered: Medications ketamine injection 10 mg (has no administration in time range) albumin human 25 % IV solution 50 g (0 g IntraVENous Stopped 08/03/24 1330) furosemide (Lasix) injection 15 mg (15 mg IntraVENous Given 08/03/24 1413) ED Course as of 08/03/241812Aug 03, 2024 1016 Valproic acid level, total (08/01/24 1547) Prior medical records were reviewed: normal [NM] 1017 Osmolality (07/04/24 0454) Prior medical records were reviewed: normal. Ordered by group work program director [NM] 1017 Renal function panel (07/03/24 0147)(!) Prior medical records were reviewed: cr 2.8. Ordered by group work program director [NM] 1020 Ammonia (06/28/24 1359) Prior medical records were reviewed: normal [NM] 1508 HEMOGLOBIN(!): 9.2 Prior medical records were reviewed: similar to 1 month ago [NM] ED Course User Index [NM] Jess Patton MD Diagnoses as of 08/03/241812 Peripheral edema Failure to thrive in adult Hypervolemia, unspecified hypervolemia type Chronic kidney disease, unspecified CKD stage Anemia, unspecified type * No order type specified * Our workup consisted of ordering/reviewing: Orders Placed This Encounter Procedures XR pelvis 1 or 2 views CBC auto differential Comprehensive metabolic panel D-dimer, quantitative NT PRO BNP POCT glucose meter Initiate observation status Vascular US lower extremity venous duplex bilateral MDM: 59 y.o. presented with pain. The differential diagnosis considered: Pelvic fracture, infection, inflammation, anemia, kidney problems electrolyte derangement, blood clots. She can't have toradol because of CKD, and I am hesitant to give her po or iv opiates she is lethargic. nurse asked about tylenol and she refused. Ultrasound vascular lower extremity venous duplex bilaterally interpreted by me: No DVT Patient's care was impacted by comorbidity of renal disease, requiring assessment of her kidney function to check for worsening causing her fluid overload. Ct is improved from 2 d ago. . Patient's care was significantly impacted by social determinants of health including Inadequate housing, as assisted living cannot take care of her. Unable to transfer out of bed in ED. Hence Consideration for escalation of care with: Admission/observation for fluid overload and failure to thrive . Radiology: X-ray was reviewed and was independently interpreted by myself: Pelvis:no fracture Diagnostic tests considered but not performed: ct head no head injury REVAL: CRITICAL CARE TIME PROCEDURES: Procedures FINAL IMPRESSION 1. Hypervolemia, unspecified hypervolemia type 2. Peripheral edema 3. Failure to thrive in adult 4. Chronic kidney disease, unspecified CKD stage 5. Anemia, unspecified type DISPOSITION/PLAN DISPOSITION Observation 08/03/2024 03:42:48 PM This was discussed with ESTELA Henry and patient was accepted to for hospitalization to [facility] PATIENT REFERRED TO: No follow-up provider specified. I prescribed: New Prescriptions No medications on file (Comment: this report has been produced using speech recognition software and may contain errors related to that system including errors in grammar, punctuation, and spelling, as well as words and phrases that may be inappropriate) Jess Patton MD (electronically signed) Jess Patton MD 08/03/241812 Pt to room 7 via EMS with c/o "joint pain everywhere". Pt appears very drowsy in appearance but awakens to questions and with requests. Pt states is from assisted living and called d/t "constant pain everywhere". Pt states she has had pain "for years" and that "sleepy because I am in pain all night". Pt speech is slow and slurred but changes when encouraged to answer or when requesting specific care. Pt is able to follow commands and request. Pt is disheveled in nature with bruising noted to lower legs. There is bilateral lower leg edema noted. Warm blankets are provided per request and bed adjusted for comfort. Pt declines offers of bedside commode at current time. Pt updated and aware of admission status Ice chips provided. Pt remains somnolent but wakes up easily to stimuli Pt repositioned with additional warm blankets provided. Lights dimmed for comfort documented in this encounter [facility] 08-03-2024 Emergency department Note Pt incontinent of urine with depends changed. Warm blankets provided and pt updated of admission status and estimated transfer times. [facility] 08-03-2024 Emergency department Note Pt sleeping with eyes closed and respirations even and unlabored. Lights are dimmed for comfort. [facility] 08-03-2024 Emergency department Note Pt declines offers of bedside commode at current time. Pt updated and aware of admission status [facility] 08-03-2024 Emergency department Note Ice chips provided. Pt remains somnolent but wakes up easily to stimuli Pt repositioned with additional warm blankets provided. Lights dimmed for comfort [facility] 08-03-2024 Emergency department Triage note Pt to room 7 via EMS with c/o "joint pain everywhere". Pt appears very drowsy in appearance but awakens to questions and with requests. Pt states is from assisted living and called d/t "constant pain everywhere". Pt states she has had pain "for years" and that "sleepy because I am in pain all night". Pt speech is slow and slurred but changes when encouraged to answer or when requesting specific care. Pt is able to follow commands and request. Pt is disheveled in nature with bruising noted to lower legs. There is bilateral lower leg edema noted. Warm blankets are provided per request and bed adjusted for comfort. [facility] 08-03-2024 Physician Emergency department Note EMERGENCY DEPARTMENT ENCOUNTER Pt Name: Jessy Mckeon Birthdate 1965 Date of evaluation: 08/03/2024 CHIEF COMPLAINT Chief Complaint Patient presents with Joint Pain HISTORY OF PRESENT ILLNESS History provided by: Patient History limited by: Mental status change Jessy Mckeon is a 59 y.o. female who presents to the emergency department with pain" everywhere". It severe she reports. She did fall in the last 3 days. She was assessed at another facility. She denies head injury. Denies loss of consciousness. Social history: She is in assisted living. Patient reports they cannot take care of her. She is toileting in her diaper. REVIEW OF SYSTEMS Review of Systems Patient Active Problem List Diagnosis Urge incontinence of urine Dyspnea Anxiety Schizoaffective disorder (CMS/HCC) (HCC) Chest pain Iron (Fe) deficiency anemia GERD (gastroesophageal reflux disease) Depression Suicidal ideations Acute gastric ulcer without hemorrhage or perforation Hypothyroidism Urinary incontinence Diverticulosis of large intestine without diverticulitis Chronic antral gastritis First degree hemorrhoids Nocturia Rotator cuff strain Osteoarthritis of patellofemoral joint Urge incontinence Urinary retention Localized edema Morbid obesity with BMI of 45.0-49.9, adult ([facility]) Hypomagnesemia JOSE A (acute kidney injury) ([facility]) Chronic bilateral low back pain with bilateral sciatica Primary hypothyroidism Psychogenic polydipsia Pneumonia Hyponatremia Hypertension Bipolar disorder ([facility]) Lung infiltrate on CT Chronic schizoaffective disorder ([facility]) Urinary tract infection Urinary tract infection without hematuria, site unspecified Chronic renal disease, stage IV (HCC) Chronic kidney disease, stage 3b ([facility]) Acute cystitis without hematuria Fluid overload CURRENT MEDICATIONS Previous Medications AMLODIPINE (NORVASC) 5 MG TABLET take 1 tablet by mouth once daily BUPRENORPHINE (BUTRANS) 15 MCG/HR Place 20 patches on the skin Once. CLONAZEPAM (KLONOPIN) 0.5 MG TABLET Take 1 tablet (0.5 mg) by mouth 2 times daily as needed for anxiety. DIVALPROEX (DEPAKOTE ER) 250 MG 24 HR TABLET Take 1 tablet (250 mg) by mouth in the morning and 1 tablet (250 mg) at noon and 1 tablet (250 mg) in the evening. Take with meals. DULOXETINE (CYMBALTA) [address] CAPSULE Take 1 capsule (60 mg) by mouth daily. Do not crush or chew. ERGOCALCIFEROL (VITAMIN D-2) 1.25 MG (29268 UT) CAPSULE Take 1.25 mg by mouth 1 (one) time per week. HYDRALAZINE (APRESOLINE) 50 MG TABLET Take 1 tablet (50 mg) by mouth 3 times daily. LAMOTRIGINE (LAMICTAL) 200 MG TABLET Take 1 tablet (200 mg) by mouth Nightly. LEVOTHYROXINE (SYNTHROID, LEVOXYL) 175 MCG TABLET Take 175 mcg by mouth in the morning. METOPROLOL TARTRATE (LOPRESSOR) 100 MG TABLET Take 1 tablet (100 mg) by mouth 2 times daily. OMEPRAZOLE (PRILOSEC) [address] CAPSULE Take 1 capsule (40 mg) by mouth every morning (before breakfast). Do not crush or chew. RISPERIDONE (RISPERDAL) 3 MG TABLET Take 2 tablets (6 mg) by mouth Nightly. ROSUVASTATIN (CRESTOR) 10 MG TABLET TAKE 1 TABLET BY MOUTH DAILY SENNOSIDES (SENOKOT) 8.6 MG TABLET Take 2 tablets (17.2 mg) by mouth 2 times daily. TAMSULOSIN (FLOMAX) 0.4 MG 24 HR CAPSULE Take 1 capsule (0.4 mg) by mouth daily. TRAZODONE (DESYREL) 100 MG TABLET Take 2 tablets (200 mg) by mouth Nightly. ALLERGIES Benztropine, Diphenhydramine, Nsaids, Other, and Venlafaxine SOCIAL HISTORY Social History Tobacco Use Smoking status: Former Smokeless tobacco: Never Vaping Use Vaping status: Never Used Substance Use Topics Alcohol use: No Alcohol/week: 0.0 standard drinks of alcohol Drug use: No PHYSICAL EXAM Vitals: 08/03/24 1412 08/03/24 1505 08/03/24 1729 08/03/24 1810 BP: 116/67 101/63 119/69 102/65 BP Location: Left arm Right arm Right arm Patient Position: Lying Lying Pulse: 61 60 68 65 Resp: 18 16 16 Temp: TempSrc: SpO2: 94% 93% 97% 98% Weight: 125 kg (275 lb) Height: 1.575 m (5' 2") Physical Exam Vitals and nursing note reviewed. Constitutional: Appearance: She is obese. HENT: Head: Atraumatic. Eyes: Extraocular Movements: Extraocular movements intact. Conjunctiva/sclera: Conjunctivae normal. Pupils: Pupils are equal, round, and reactive to light. Cardiovascular: Rate and Rhythm: Normal rate and regular rhythm. Pulses: Radial pulses are 2+ on the right side and 2+ on the left side. Dorsalis pedis pulses are 2+ on the right side and 2+ on the left side. Posterior tibial pulses are 2+ on the right side and 2+ on the left side. Heart sounds: Normal heart sounds. Pulmonary: Effort: Pulmonary effort is normal. Breath sounds: Normal breath sounds. Abdominal: General: Bowel sounds are normal. Palpations: Abdomen is soft. Tenderness: There is no guarding. Musculoskeletal: Cervical back: Normal range of motion. Right lower leg: Swelling present. Left lower leg: Swelling present. Right ankle: Swelling present. Left ankle: Swelling present. Right foot: Swelling present. Left foot: Swelling present. Skin: General: Skin is warm. Capillary Refill: Capillary refill takes less than 2 seconds. Findings: Ecchymosis (right distal leg) present. Neurological: Mental Status: She is oriented to person, place, and time. She is lethargic. Cranial Nerves: Cranial nerves 2-12 are intact. Sensory: Sensation is intact. Motor: Motor function is intact. Coordination: Coordination is intact. Psychiatric: Behavior: Behavior normal. Thought Content: Thought content normal. SCREENINGS Rowley Coma Scale Best Eye Response: Spontaneous Best Verbal Response: Oriented Best Motor Response: Follows commands Tamara Coma Scale Score: 15 Medical decision making DIAGNOSTIC RESULTS Procedures/EKG: Physician EKG interpretation can be found in [facility] if done RADIOLOGY : Radiologist results reviewed: Vascular US lower extremity venous duplex bilateral Final Result No evidence of deep venous thrombus in the evaluated veins of the bilateral lower extremities from the inguinal ligaments to the upper calf. Posterior tibial and peroneal veins were not visualized due to patient habitus and subcutaneous edema. Report Dictated on Electronically Signed By: Vu Carpio MD Electronically Signed Date/Time: 08/03/2024 2:04 PM EST XR pelvis 1 or 2 views Final Result No fracture or dislocation. Report Dictated on Electronically Signed By: Mary Nielsen MD Electronically Signed Date/Time: 08/03/2024 1:50 PM EST LABS: Labs Reviewed CBC WITH AUTO DIFFERENTIAL - Abnormal Result Value Auto WBC 8.4 RBC 2.90 (*) Hemoglobin 9.2 (*) Hematocrit 27.8 (*) MCV 95.9 MCH 31.7 MCHC 33.1 RDW 13.4 Platelets 229 MPV 9.6 nRBC 0.0 Neutrophils Relative 57.8 Lymphocytes Relative 26.4 Monocytes Relative 13.2 (*) Eosinophils Relative 1.7 Basophils Relative 0.2 Immature Grans % 0.7 Neutrophils Absolute 4.8 Lymphocytes Absolute 2.2 Monocytes Absolute 1.1 (*) Eosinophils Absolute 0.1 Basophils Absolute 0.0 Immature Grans Absolute 0.1 (*) COMPREHENSIVE METABOLIC PANEL - Abnormal SODIUM 131 (*) POTASSIUM 4.4 CHLORIDE 101 CARBON DIOXIDE 24 ANION GAP 6 UREA NITROGEN 23 CREATININE 2.94 (*) GLUCOSE 85 CALCIUM 9.1 AST (SGOT) 20 ALT <6 ALKALINE PHOSPHATASE 75 ALBUMIN 3.2 (*) BILIRUBIN, TOTAL 0.3 TOTAL PROTEIN 6.9 eGFR 18.1 (*) D-DIMER,QUANTITATIVE - Abnormal D-DIMER, INNOVANCE 0.74 (*) Narrative: Innovance D-Dimer values of <0.50 mg/L FEU can be used in combination with a pre-test probability model (e.g. Well's) to exclude pulmonary embolism (PE) disease, as well as an aid in the diagnosis of deep vein thrombosis (DVT). NT PRO BNP - Abnormal NT PRO BNP 784 (*) POCT GLUCOSE METER UNSOLICITED RESULTS - Abnormal Glucose 101 (*) Narrative: [facility]formed [facility]: [facility], [address] [place] [address] CLIA ID: [id number] POCT GLUCOSE METER Medications ordered: Medications ketamine injection 10 mg (has no administration in time range) albumin human 25 % IV solution 50 g (0 g IntraVENous Stopped 08/03/24 1330) furosemide (Lasix) injection 15 mg (15 mg IntraVENous Given 08/03/24 1413) ED Course as of 08/03/24 1813 TueAug 03, 2024 1016 Valproic acid level, total (08/01/24 1547) Prior medical records were reviewed: normal [NM] 1017 Osmolality (07/04/24 0454) Prior medical records were reviewed: normal. Ordered by group work program director [NM] 1017 Renal function panel (07/03/24 0147)(!) Prior medical records were reviewed: cr 2.8. Ordered by group work program director [NM] 1020 Ammonia (06/28/24 1359) Prior medical records were reviewed: normal [NM] 1508 HEMOGLOBIN(!): 9.2 Prior medical records were reviewed: similar to 1 month ago [NM] ED Course User Index [NM] Jess Patton MD Diagnoses as of 08/03/241812 Peripheral edema Failure to thrive in adult Hypervolemia, unspecified hypervolemia type Chronic kidney disease, unspecified CKD stage Anemia, unspecified type * No order type specified * Our workup consisted of ordering/reviewing: Orders Placed This Encounter Procedures XR pelvis 1 or 2 views CBC auto differential Comprehensive metabolic panel D-dimer, quantitative NT PRO BNP POCT glucose meter Initiate observation status Vascular US lower extremity venous duplex bilateral MDM: 59 y.o. presented with pain. The differential diagnosis considered: Pelvic fracture, infection, inflammation, anemia, kidney problems electrolyte derangement, blood clots. She can't have toradol because of CKD, and I am hesitant to give her po or iv opiates she is lethargic. nurse asked about tylenol and she refused. Ultrasound vascular lower extremity venous duplex bilaterally interpreted by me: No DVT Patient's care was impacted by comorbidity of renal disease, requiring assessment of her kidney function to check for worsening causing her fluid overload. Ct is improved from 2 d ago. . Patient's care was significantly impacted by social determinants of health including Inadequate housing, as assisted living cannot take care of her. Unable to transfer out of bed in ED. Hence Consideration for escalation of care with: Admission/observation for fluid overload and failure to thrive . Radiology: X-ray was reviewed and was independently interpreted by myself: Pelvis:no fracture Diagnostic tests considered but not performed: ct head no head injury REVAL: CRITICAL CARE TIME PROCEDURES: Procedures FINAL IMPRESSION 1. Hypervolemia, unspecified hypervolemia type 2. Peripheral edema 3. Failure to thrive in adult 4. Chronic kidney disease, unspecified CKD stage 5. Anemia, unspecified type DISPOSITION/PLAN DISPOSITION Observation 08/03/2024 03:42:48 PM This was discussed with ESTELA Henry and patient was accepted to for hospitalization to [facility] PATIENT REFERRED TO: No follow-up provider specified. I prescribed: New Prescriptions No medications on file (Comment: this report has been produced using speech recognition software and may contain errors related to that system including errors in grammar, punctuation, and spelling, as well as words and phrases that may be inappropriate) Jess Patton MD (electronically signed) Jess Patton MD 08/03/241812 [facility] 08-01-2024 Emergency department Note Updated ETA 30 mins ed[facility] 08-01-2024 Emergency department Note Updated ETA 30 mins Called rapid for US IV and blood draw. This RN attempted twice Pt presents with EMS. Pt with fall yesterday and ankle pain. Pt is yellow in appearance. Pt with bruising in bilateral legs and +2 edema. Pt walks with walker.Pt is from assisted living [facility]. EMS unable to provider more information EMERGENCY DEPARTMENT ENCOUNTER Pt Name: Jessy Mckeon Birthdate 1965 Date of evaluation: 08/01/2024 ED Provider: Mayito Cedeño APRN - SOHAIL I have evaluated this patient on my own, per my scope of practice with an attending physician available for consultation. CHIEF COMPLAINT No chief complaint on file. HISTORY OF PRESENT ILLNESS (Location/Symptom, Timing/Onset, Context/Setting, Quality, Duration, Modifying Factors, Severity) Note limiting factors. I wore appropriate PPE for the entirety of this encounter. HPI Jessy Mckeon is a 59 y.o. who presents to the emergency department with chief complaint of right ankle and lower extremity pain and swelling. Patient is basically nonambulatory at her baseline she has a walker can take a few steps she had fallen yesterday injured the right ankle and lower leg there is bruising and difficulty ambulating today so they sent her in for evaluation. No reports of her hitting her head. Medical history includes chronic kidney disease, depression, schizoaffective disorder. Nursing Notes were reviewed. Limitations to history: None Outside historians: None REVIEW OF SYSTEMS Review of Systems Constitutional: Negative for activity change, appetite change, chills and fever. HENT: Negative for congestion, nosebleeds, sinus pain and trouble swallowing. Eyes: Negative for pain and visual disturbance. Respiratory: Negative for cough, chest tightness and shortness of breath. Cardiovascular: Negative for chest pain. Gastrointestinal: Negative for abdominal pain, diarrhea, nausea and vomiting. Genitourinary: Negative for dysuria, hematuria, pelvic pain, vaginal bleeding, vaginal discharge and vaginal pain. Musculoskeletal: Positive for arthralgias, joint swelling and myalgias. Negative for back pain. Skin: Negative for rash and wound. Neurological: Negative for syncope, weakness, light-headedness and headaches. Hematological: Negative for adenopathy. Psychiatric/Behavioral: Negative for agitation and confusion. All other systems reviewed and are negative. Pertinent positives and negatives as per HPI. PAST MEDICAL HISTORY Past Medical History: Diagnosis Date Acid reflux Anxiety Arthritis Asperger syndrome Bipolar disorder (HCC) Chronic kidney disease stage 4 kidney failure Chronic pain Depression Edema of both legs GERD (gastroesophageal reflux disease) Hemorrhoids Hyperlipidemia Hypertension Hypothyroidism Iron (Fe) deficiency anemia Nephrogenic diabetes insipidus (HCC) Pain management Retention of urine, unspecified Sciatica SOB (shortness of breath) GRANT Type II or unspecified type diabetes mellitus without mention of complication, not stated as uncontrolled (HCC) Urinary incontinence nightly SURGICAL HISTORY Past Surgical History: Procedure Laterality Date 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 CLONAZEPAM (KLONOPIN) 0.5 MG TABLET Take 1 tablet (0.5 mg) by mouth 2 times daily as needed for anxiety. DIVALPROEX (DEPAKOTE ER) 250 MG 24 HR TABLET Take 1 tablet (250 mg) by mouth in the morning and 1 tablet (250 mg) at noon and 1 tablet (250 mg) in the evening. Take with meals. DULOXETINE (CYMBALTA) [address] CAPSULE Take 1 capsule (60 mg) by mouth daily. Do not crush or chew. ERGOCALCIFEROL (VITAMIN D-2) 1.25 MG (97476 UT) CAPSULE Take 1.25 mg by mouth 1 (one) time per week. HYDRALAZINE (APRESOLINE) 50 MG TABLET Take 1 tablet (50 mg) by mouth 3 times daily. LAMOTRIGINE (LAMICTAL) 200 MG TABLET Take 1 tablet (200 mg) by mouth Nightly. LEVOTHYROXINE (SYNTHROID, LEVOXYL) 175 MCG TABLET Take 175 mcg by mouth in the morning. METOPROLOL TARTRATE (LOPRESSOR) 100 MG TABLET Take 1 tablet (100 mg) by mouth 2 times daily. OMEPRAZOLE (PRILOSEC) [address] CAPSULE Take 1 capsule (40 mg) by mouth every morning (before breakfast). Do not crush or chew. RISPERIDONE (RISPERDAL) 3 MG TABLET Take 2 tablets (6 mg) by mouth Nightly. ROSUVASTATIN (CRESTOR) 10 MG TABLET TAKE 1 TABLET BY MOUTH DAILY SENNOSIDES (SENOKOT) 8.6 MG TABLET Take 2 tablets (17.2 mg) by mouth 2 times daily. TAMSULOSIN (FLOMAX) 0.4 MG 24 HR CAPSULE Take 1 capsule (0.4 mg) by mouth daily. TRAZODONE (DESYREL) 100 MG TABLET Take 2 tablets (200 mg) by mouth Nightly. ALLERGIES Benztropine, Diphenhydramine, Nsaids, Other, and Venlafaxine FAMILY HISTORY Family History Problem Relation Name Age of Onset Hypertension Mother Cancer Father Colon cancer Maternal Grandmother Cancer Brother SOCIAL HISTORY Social History Socioeconomic History Marital status: Single Tobacco Use Smoking status: Former Smokeless tobacco: Never Vaping Use Vaping status: Never Used Substance and Sexual Activity Alcohol use: No Alcohol/week: 0.0 standard drinks of alcohol Drug use: No Social Drivers of Health Intimate Partner Violence: Not At Risk (03/17/2023) Humiliation, Afraid, Rape, and Kick questionnaire Fear of Current or Ex-Partner: No Emotionally Abused: No Physically Abused: No Sexually Abused: No SCREENINGS PHYSICAL EXAM ED Triage Vitals [08/01/24 1403] Temp Heart Rate Resp BP 36.8 C (98.2 F) 72 18 133/79 SpO2 Temp src Heart Rate Source Patient Position 97 % -- Monitor -- BP Location FiO2 (%) -- -- Physical Exam Vitals and nursing note reviewed. Constitutional: General: She is not in acute distress. Appearance: Normal appearance. She is obese. She is not ill-appearing or toxic-appearing. HENT: Head: Normocephalic and atraumatic. Right Ear: External ear normal. Left Ear: External ear normal. Mouth/Throat: Mouth: Mucous membranes are moist. Pharynx: Oropharynx is clear. Eyes: Extraocular Movements: Extraocular movements intact. Conjunctiva/sclera: Conjunctivae normal. Pupils: Pupils are equal, round, and reactive to light. Cardiovascular: Rate and Rhythm: Normal rate and regular rhythm. Pulses: Normal pulses. Heart sounds: Normal heart sounds. No murmur heard. Pulmonary: Effort: Pulmonary effort is normal. No respiratory distress. Breath sounds: Normal breath sounds. No stridor. No wheezing or rhonchi. Musculoskeletal: Cervical back: Normal range of motion and neck supple. No rigidity or tenderness. Comments: Tenderness to the distal half of the tibia and foot large amount of ecchymosis noted, DP pulse 2+, generalized swelling to both lower extremities no break in the skin. Lymphadenopathy: Cervical: No cervical adenopathy. Skin: General: Skin is warm and dry. Capillary Refill: Capillary refill takes less than 2 seconds. Coloration: Skin is jaundiced. Skin is not pale. Findings: No bruising or erythema. Neurological: General: No focal deficit present. Mental Status: She is alert and oriented to person, place, and time. Mental status is at baseline. Cranial Nerves: No cranial nerve deficit. Sensory: No sensory deficit. Motor: No weakness. Coordination: Coordination normal. Psychiatric: Mood and Affect: Mood normal. DIAGNOSTIC RESULTS Procedures/EKG: EKG was reviewed by myself. Physician EKG interpretation can be found in [facility] RADIOLOGY (Per Emergency Physician): Interpretation per the Radiologist below, if available at the time of this note: XR foot 3+ views right Final Result Laterally dislocated second MTP joint and laterally subluxed or dislocated first MTP joint. Osteopenia. Extensive soft tissue edema/swelling. Report Dictated on Electronically Signed By: Joyce Darby MD Electronically Signed Date/Time: 08/01/2024 2:51 PM EST XR foot 3+ views left Final Result No fracture or dislocation of the left foot is seen. Severe hallux valgus. Nonspecific soft tissue swelling. Report Dictated on Electronically Signed By: Sarah Hamm MD Electronically Signed Date/Time: 08/01/2024 3:07 PM EST XR ankle 3+ views right Final Result No fracture or dislocation of the right ankle. Generalized soft tissue swelling. Small plantar heel spur. Report Dictated on Electronically Signed By: Sarah Hamm MD Electronically Signed Date/Time: 08/01/2024 3:09 PM EST XR tibia fibula 2 views right Final Result No fracture or dislocation of the right tibia or fibula is identified. Generalized soft tissue swelling. Report Dictated on Electronically Signed By: Sarah Hamm MD Electronically Signed Date/Time: 08/01/2024 3:08 PM EST ED BEDSIDE ULTRASOUND: Performed by ED Physician - none LABS: Labs Reviewed BASIC METABOLIC PANEL - Abnormal Result Value SODIUM 132 (*) POTASSIUM 4.1 CHLORIDE 102 CARBON DIOXIDE 21 (*) UREA NITROGEN 19 CREATININE 3.18 (*) GLUCOSE 94 CALCIUM 9.0 ANION GAP 9 eGFR 16.4 (*) HEPATIC FUNCTION PANEL - Abnormal BILIRUBIN, TOTAL 0.4 BILIRUBIN, DIRECT 0.2 ALKALINE PHOSPHATASE 76 AST (SGOT) 15 ALT <6 ALBUMIN 3.2 (*) TOTAL PROTEIN 6.9 CBC (HEMOGRAM) - Abnormal Auto WBC 11.0 (*) RBC 3.03 (*) Hemoglobin 9.5 (*) Hematocrit 29.3 (*) MCV 96.7 MCH 31.4 MCHC 32.4 RDW 13.6 Platelets 185 MPV 9.1 LIPASE - Normal LIPASE 39 VALPROIC ACID TOTAL - Normal VALPROIC ACID 63 Narrative: Toxicity is seen at concentrations >175 ug/mL LAMOTRIGINE LEVEL ([employer] [facility]) All other labs were within normal range or not returned as of this dictation. EMERGENCY DEPARTMENT COURSE and DIFFERENTIAL DIAGNOSIS/MDM: Vitals: Vitals: 08/01/24 1403 BP: 133/79 Pulse: 72 Resp: 18 Temp: 36.8 C (98.2 F) SpO2: 97% Diagnoses as of 08/01/24 1650 Contusion of right ankle, initial encounter The patient presented with chief complaint of with chief complaint of right ankle and lower extremity pain and swelling. Patient is basically nonambulatory at her baseline she has a walker can take a few steps she had fallen yesterday injured the right ankle and lower leg there is bruising and difficulty ambulating today so they sent her in for evaluation. No reports of her hitting her head. Medical history includes chronic kidney disease, depression, schizoaffective disorder.. The differential diagnosis associated with this patient's presentation includes jaundice, ankle sprain, ankle fracture, foot sprain, foot fracture. Our workup consisted of ordering/reviewing: CBC, valproic acid, Lamictal level, BMP, hepatic function, lipase, x-ray right foot, right ankle, right tib-fib. Diagnostic tests considered but not performed: None To aid in management, I performed an independent interpretation of Xray(s) x-rays of the ankle tib-fib and bilateral feet per my interpretation show no fracture there is chronic dislocation at the MTP joint of the first and second toe of both feet. I also reviewed external records from none. I discussed their care with none. Consideration for escalation of care with: none. The patient will be discharged consider joint reduction on the right foot but after reviewing the left foot x-rays these are chronic dislocations from deformity of the foot, she will be discharged. Patient is in agreement with this plan. Medications lidocaine (Xylocaine) 1 % injection 10 mL (has no administration in time range) REVAL: CRITICAL CARE TIME None CONSULTS: None PROCEDURES: Unless otherwise noted below, none Procedures Patients symptoms are consistent with sepsis, severe sepsis, or septic shock (If yes use ".sepsiscoremeasure"): no FINAL IMPRESSION 1. Contusion of right ankle, initial encounter DISPOSITION Discharge 08/01/2024 04:50:07 PM PATIENT REFERRED TO: Edith Pierce MD [address] [place] [address] [address] [facility] [id number] If symptoms worsen DISCHARGE MEDICATIONS: New Prescriptions No medications on file (Comment: Please note this report has been produced using speech recognition software and may contain errors related to that system including errors in grammar, punctuation, and spelling, as well as words and phrases that may be inappropriate. If there are any questions or concerns please feel free to contact the dictating provider for clarification.) VENTURA Fortune CNP (electronically signed) Emergency Medicine Provider VENTURA Fortune CNP 08/01/24 1651 documented in this encounter [facility] 08-01-2024 Hospital Discharge instructions VENTURA Fortune CNP - 08/01/2024 4:50 PM EST Patient has chronic dislocation of the first and second MTP joint no evidence of fracture, Tylenol and ice The following attachments cannot be sent through Care Everywhere.Contusion Discharge Instructions (Northern Irish)documented in this encounter [facility] 08-01-2024 Emergency department Note Called rapid for US IV and blood draw. This RN attempted twice [facility] 08-01-2024 Emergency department Note Pt presents with EMS. Pt with fall yesterday and ankle pain. Pt is yellow in appearance. Pt with bruising in bilateral legs and +2 edema. Pt walks with walker.Pt is from assisted living [facility]. EMS unable to provider more information [facility] 08-01-2024 Physician Emergency department Note EMERGENCY DEPARTMENT ENCOUNTER Pt Name: Jessy Mckeon Birthdate 1965 Date of evaluation: 08/01/2024 ED Provider: Mayito Cedeño APRN - SOHAIL I have evaluated this patient on my own, per my scope of practice with an attending physician available for consultation. CHIEF COMPLAINT No chief complaint on file. HISTORY OF PRESENT ILLNESS (Location/Symptom, Timing/Onset, Context/Setting, Quality, Duration, Modifying Factors, Severity) Note limiting factors. I wore appropriate PPE for the entirety of this encounter. HPI Jessy Mckeon is a 59 y.o. who presents to the emergency department with chief complaint of right ankle and lower extremity pain and swelling. Patient is basically nonambulatory at her baseline she has a walker can take a few steps she had fallen yesterday injured the right ankle and lower leg there is bruising and difficulty ambulating today so they sent her in for evaluation. No reports of her hitting her head. Medical history includes chronic kidney disease, depression, schizoaffective disorder. Nursing Notes were reviewed. Limitations to history: None Outside historians: None REVIEW OF SYSTEMS Review of Systems Constitutional: Negative for activity change, appetite change, chills and fever. HENT: Negative for congestion, nosebleeds, sinus pain and trouble swallowing. Eyes: Negative for pain and visual disturbance. Respiratory: Negative for cough, chest tightness and shortness of breath. Cardiovascular: Negative for chest pain. Gastrointestinal: Negative for abdominal pain, diarrhea, nausea and vomiting. Genitourinary: Negative for dysuria, hematuria, pelvic pain, vaginal bleeding, vaginal discharge and vaginal pain. Musculoskeletal: Positive for arthralgias, joint swelling and myalgias. Negative for back pain. Skin: Negative for rash and wound. Neurological: Negative for syncope, weakness, light-headedness and headaches. Hematological: Negative for adenopathy. Psychiatric/Behavioral: Negative for agitation and confusion. All other systems reviewed and are negative. Pertinent positives and negatives as per HPI. PAST MEDICAL HISTORY Past Medical History: Diagnosis Date Acid reflux Anxiety Arthritis Asperger syndrome Bipolar disorder (HCC) Chronic kidney disease stage 4 kidney failure Chronic pain Depression Edema of both legs GERD (gastroesophageal reflux disease) Hemorrhoids Hyperlipidemia Hypertension Hypothyroidism Iron (Fe) deficiency anemia Nephrogenic diabetes insipidus (HCC) Pain management Retention of urine, unspecified Sciatica SOB (shortness of breath) GRANT Type II or unspecified type diabetes mellitus without mention of complication, not stated as uncontrolled (HCC) Urinary incontinence nightly SURGICAL HISTORY Past Surgical History: Procedure Laterality Date 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 CLONAZEPAM (KLONOPIN) 0.5 MG TABLET Take 1 tablet (0.5 mg) by mouth 2 times daily as needed for anxiety. DIVALPROEX (DEPAKOTE ER) 250 MG 24 HR TABLET Take 1 tablet (250 mg) by mouth in the morning and 1 tablet (250 mg) at noon and 1 tablet (250 mg) in the evening. Take with meals. DULOXETINE (CYMBALTA) [address] CAPSULE Take 1 capsule (60 mg) by mouth daily. Do not crush or chew. ERGOCALCIFEROL (VITAMIN D-2) 1.25 MG (01034 UT) CAPSULE Take 1.25 mg by mouth 1 (one) time per week. HYDRALAZINE (APRESOLINE) 50 MG TABLET Take 1 tablet (50 mg) by mouth 3 times daily. LAMOTRIGINE (LAMICTAL) 200 MG TABLET Take 1 tablet (200 mg) by mouth Nightly. LEVOTHYROXINE (SYNTHROID, LEVOXYL) 175 MCG TABLET Take 175 mcg by mouth in the morning. METOPROLOL TARTRATE (LOPRESSOR) 100 MG TABLET Take 1 tablet (100 mg) by mouth 2 times daily. OMEPRAZOLE (PRILOSEC) [address] CAPSULE Take 1 capsule (40 mg) by mouth every morning (before breakfast). Do not crush or chew. RISPERIDONE (RISPERDAL) 3 MG TABLET Take 2 tablets (6 mg) by mouth Nightly. ROSUVASTATIN (CRESTOR) 10 MG TABLET TAKE 1 TABLET BY MOUTH DAILY SENNOSIDES (SENOKOT) 8.6 MG TABLET Take 2 tablets (17.2 mg) by mouth 2 times daily. TAMSULOSIN (FLOMAX) 0.4 MG 24 HR CAPSULE Take 1 capsule (0.4 mg) by mouth daily. TRAZODONE (DESYREL) 100 MG TABLET Take 2 tablets (200 mg) by mouth Nightly. ALLERGIES Benztropine, Diphenhydramine, Nsaids, Other, and Venlafaxine FAMILY HISTORY Family History Problem Relation Name Age of Onset Hypertension Mother Cancer Father Colon cancer Maternal Grandmother Cancer Brother SOCIAL HISTORY Social History Socioeconomic History Marital status: Single Tobacco Use Smoking status: Former Smokeless tobacco: Never Vaping Use Vaping status: Never Used Substance and Sexual Activity Alcohol use: No Alcohol/week: 0.0 standard drinks of alcohol Drug use: No Social Drivers of Health Intimate Partner Violence: Not At Risk (03/17/2023) Humiliation, Afraid, Rape, and Kick questionnaire Fear of Current or Ex-Partner: No Emotionally Abused: No Physically Abused: No Sexually Abused: No SCREENINGS PHYSICAL EXAM ED Triage Vitals [08/01/24 1403] Temp Heart Rate Resp BP 36.8 C (98.2 F) 72 18 133/79 SpO2 Temp src Heart Rate Source Patient Position 97 % -- Monitor -- BP Location FiO2 (%) -- -- Physical Exam Vitals and nursing note reviewed. Constitutional: General: She is not in acute distress. Appearance: Normal appearance. She is obese. She is not ill-appearing or toxic-appearing. HENT: Head: Normocephalic and atraumatic. Right Ear: External ear normal. Left Ear: External ear normal. Mouth/Throat: Mouth: Mucous membranes are moist. Pharynx: Oropharynx is clear. Eyes: Extraocular Movements: Extraocular movements intact. Conjunctiva/sclera: Conjunctivae normal. Pupils: Pupils are equal, round, and reactive to light. Cardiovascular: Rate and Rhythm: Normal rate and regular rhythm. Pulses: Normal pulses. Heart sounds: Normal heart sounds. No murmur heard. Pulmonary: Effort: Pulmonary effort is normal. No respiratory distress. Breath sounds: Normal breath sounds. No stridor. No wheezing or rhonchi. Musculoskeletal: Cervical back: Normal range of motion and neck supple. No rigidity or tenderness. Comments: Tenderness to the distal half of the tibia and foot large amount of ecchymosis noted, DP pulse 2+, generalized swelling to both lower extremities no break in the skin. Lymphadenopathy: Cervical: No cervical adenopathy. Skin: General: Skin is warm and dry. Capillary Refill: Capillary refill takes less than 2 seconds. Coloration: Skin is jaundiced. Skin is not pale. Findings: No bruising or erythema. Neurological: General: No focal deficit present. Mental Status: She is alert and oriented to person, place, and time. Mental status is at baseline. Cranial Nerves: No cranial nerve deficit. Sensory: No sensory deficit. Motor: No weakness. Coordination: Coordination normal. Psychiatric: Mood and Affect: Mood normal. DIAGNOSTIC RESULTS Procedures/EKG: EKG was reviewed by myself. Physician EKG interpretation can be found in [facility] RADIOLOGY (Per Emergency Physician): Interpretation per the Radiologist below, if available at the time of this note: XR foot 3+ views right Final Result Laterally dislocated second MTP joint and laterally subluxed or dislocated first MTP joint. Osteopenia. Extensive soft tissue edema/swelling. Report Dictated on Electronically Signed By: Joyce Darby MD Electronically Signed Date/Time: 08/01/2024 2:51 PM EST XR foot 3+ views left Final Result No fracture or dislocation of the left foot is seen. Severe hallux valgus. Nonspecific soft tissue swelling. Report Dictated on Electronically Signed By: Sarah Hamm MD Electronically Signed Date/Time: 08/01/2024 3:07 PM EST XR ankle 3+ views right Final Result No fracture or dislocation of the right ankle. Generalized soft tissue swelling. Small plantar heel spur. Report Dictated on Electronically Signed By: Sarah Hamm MD Electronically Signed Date/Time: 08/01/2024 3:09 PM EST XR tibia fibula 2 views right Final Result No fracture or dislocation of the right tibia or fibula is identified. Generalized soft tissue swelling. Report Dictated on Electronically Signed By: Sarah Hamm MD Electronically Signed Date/Time: 08/01/2024 3:08 PM EST ED BEDSIDE ULTRASOUND: Performed by ED Physician - none LABS: Labs Reviewed BASIC METABOLIC PANEL - Abnormal Result Value SODIUM 132 (*) POTASSIUM 4.1 CHLORIDE 102 CARBON DIOXIDE 21 (*) UREA NITROGEN 19 CREATININE 3.18 (*) GLUCOSE 94 CALCIUM 9.0 ANION GAP 9 eGFR 16.4 (*) HEPATIC FUNCTION PANEL - Abnormal BILIRUBIN, TOTAL 0.4 BILIRUBIN, DIRECT 0.2 ALKALINE PHOSPHATASE 76 AST (SGOT) 15 ALT <6 ALBUMIN 3.2 (*) TOTAL PROTEIN 6.9 CBC (HEMOGRAM) - Abnormal Auto WBC 11.0 (*) RBC 3.03 (*) Hemoglobin 9.5 (*) Hematocrit 29.3 (*) MCV 96.7 MCH 31.4 MCHC 32.4 RDW 13.6 Platelets 185 MPV 9.1 LIPASE - Normal LIPASE 39 VALPROIC ACID TOTAL - Normal VALPROIC ACID 63 Narrative: Toxicity is seen at concentrations >175 ug/mL LAMOTRIGINE LEVEL ([facility]) All other labs were within normal range or not returned as of this dictation. EMERGENCY DEPARTMENT COURSE and DIFFERENTIAL DIAGNOSIS/MDM: Vitals: Vitals: 08/01/24 1403 BP: 133/79 Pulse: 72 Resp: 18 Temp: 36.8 C (98.2 F) SpO2: 97% Diagnoses as of 08/01/24 1650 Contusion of right ankle, initial encounter The patient presented with chief complaint of with chief complaint of right ankle and lower extremity pain and swelling. Patient is basically nonambulatory at her baseline she has a walker can take a few steps she had fallen yesterday injured the right ankle and lower leg there is bruising and difficulty ambulating today so they sent her in for evaluation. No reports of her hitting her head. Medical history includes chronic kidney disease, depression, schizoaffective disorder.. The differential diagnosis associated with this patient's presentation includes jaundice, ankle sprain, ankle fracture, foot sprain, foot fracture. Our workup consisted of ordering/reviewing: CBC, valproic acid, Lamictal level, BMP, hepatic function, lipase, x-ray right foot, right ankle, right tib-fib. Diagnostic tests considered but not performed: None To aid in management, I performed an independent interpretation of Xray(s) x-rays of the ankle tib-fib and bilateral feet per my interpretation show no fracture there is chronic dislocation at the MTP joint of the first and second toe of both feet. I also reviewed external records from none. I discussed their care with none. Consideration for escalation of care with: none. The patient will be discharged consider joint reduction on the right foot but after reviewing the left foot x-rays these are chronic dislocations from deformity of the foot, she will be discharged. Patient is in agreement with this plan. Medications lidocaine (Xylocaine) 1 % injection 10 mL (has no administration in time range) REVAL: CRITICAL CARE TIME None CONSULTS: None PROCEDURES: Unless otherwise noted below, none Procedures Patients symptoms are consistent with sepsis, severe sepsis, or septic shock (If yes use ".sepsiscoremeasure"): no FINAL IMPRESSION 1. Contusion of right ankle, initial encounter DISPOSITION Discharge 08/01/2024 04:50:07 PM PATIENT REFERRED TO: Edith Pierce MD [address] [place] [address] [address] [facility] [id number] If symptoms worsen DISCHARGE MEDICATIONS: New Prescriptions No medications on file (Comment: Please note this report has been produced using speech recognition software and may contain errors related to that system including errors in grammar, punctuation, and spelling, as well as words and phrases that may be inappropriate. If there are any questions or concerns please feel free to contact the dictating provider for clarification.) VENTURA Fortune CNP (electronically signed) Emergency Medicine Provider VENTURA Fortune CNP 08/01/24 1651 edicine [facility] 07-04-2024 Nurse Note Discharge instructions given to patient with understanding. I will also give them to her family, patients mother that will be picking her up at [address] Gutierrez did sign the AVS as requested by the facility. [facility] 07-04-2024 Nurse Note Discharge instructions given to patient with understanding. I will also give them to her family, patients mother that will be picking her up at [address] Gutierrez did sign the AVS as requested by the facility. I called [facility] and gave report on the patient. Patient will be discharged at 3 pm. Patients family will be transporting her. documented in this encounter [facility] 07-04-2024 Nurse Note I called [facility] and gave report on the patient. Patient will be discharged at 3 pm. Patients family will be transporting her. [facility] 07-04-2024 History of Present illness Narrative Images from the original note were not included. PHYSICAL THERAPY [facility] Name/MRN: Jessy Mckeon ([id number]) Date: 07/04/2024 Re-attempted this PM. PT reports she just got to bathroom and now her hands hurt. I offered encouragement and multiple options. Pt reports she wll do PT when she gets home, declines therapy. Puneet Norton PT Hospitalist Progress Note 07/04/[id number]: Please page me ([phone]) for patient care issues. [phone]: Please page [facility] Hospitalist for any issues. Subjective: Admit Date: 06/28/2024 PCP: Edith Pierce MD Room#: B1-156/[id number] A Interval History: patient admitted for AMS in setting of UTI. No overnight issues. Denies chest pain, sob, abdominal pain, nausea, vomiting, diarrhea, constipation, fevers, or chills. Adult diet Regular 24HR INTAKE/OUTPUT: Intake/Output Summary (Last 24 hours) at 07/04/2024 1154 Last data filed at 07/04/2024 0608 Gross per 24 hour Intake 1400 ml Output 2053 ml Net -653 ml Past Medical History: Past Medical History: Diagnosis Date Acid reflux Anxiety Arthritis Asperger syndrome Bipolar disorder (HCC) Chronic kidney disease stage 4 kidney failure Chronic pain Depression Edema of both legs GERD (gastroesophageal reflux disease) Hemorrhoids Hyperlipidemia Hypertension Hypothyroidism Iron (Fe) deficiency anemia Nephrogenic diabetes insipidus (HCC) Pain management Retention of urine, unspecified Sciatica SOB (shortness of breath) GRANT Type II or unspecified type diabetes mellitus without mention of complication, not stated as uncontrolled ([facility]) Urinary incontinence nightly LABS: CBC: Recent Labs 07/02/2414607/03/2412207/04/24 0346 WBC 5.9 6.0 6.0 RBC 2.83* 2.84* 2.75* HGB 8.7* 8.7* 8.3* HCT 27.2* 27.4* 26.4* MCV 96.1 96.5 96.0 RDW 13.1 13.4 13.5 PLT 190 185 216 BMP: Recent Labs 07/02/2414607/03/243 07/04/24 0346 NA 131* 132* 129* K 4.4 4.6 4.4 CL 103 103 99 CO2 23 26 25 BUN 27* 32* 33* CREATININE 2.66* 2.81* 2.68* GLUCOSE 79 76 76 CALCIUM 8.4 8.4 8.8 ANIONGAP 6 2* 5 LIVER PROFILE:No results for input(s): "AST", "ALT", "BILITOT", "ALKPHOS", "PROT" in the last 72 hours. No lab exists for component: LABALBU PT/INR: No results for input(s): "PROTIME", "INR" in the last 72 hours. CARDIAC ENZYMES: No results for input(s): "TROPONINI" in the last 72 hours. Procalcitonin: No results found for: "PROCAL" COVID-19 PCR: No results for input(s): "COVID19" in the last 72 hours. Objective: Vitals: BP 109/72 Pulse 64 Temp 36.8 C (98.2 F) (Temporal) Resp 17 Wt 275 lb 9.6 oz (125 kg) SpO2 97% BMI 50.41 kg/m Pulse Ox: SpO2 Av.7 % Min: 96 % Max: 97 % Supplemental O2: General appearance: No apparent distress, appears stated age and cooperative with exam, obese female in NAD Respiratory: diminished BL, no wheezing. Cardiovascular: Regular rate and rhythm with no murmur Abdomen: Soft, non-tender, non-distended Skin: Skin color, texture, turgor normal. No rashes or lesions. Distal pulses intact in BL LE, no edema in BL LE. Neurologic: grossly non-focal. Medications: amLODIPine, 5 mg, Oral, Daily buprenorphine, 2 patch, TransDERmal, Once cholecalciferol, 1,000 Units, Oral, Daily divalproex, 250 mg, Oral, TID WC DULoxetine, 60 mg, Oral, Daily heparin, 5,000 Units, SubCUTAneous, 2 times per day hydrALAZINE, 50 mg, Oral, TID influenza, 0.5 mL, IntraMUSCular, Prior to discharge lamoTRIgine, 200 mg, Oral, Nightly levothyroxine, 175 mcg, Oral, Daily metoprolol tartrate, 100 mg, Oral, BID pantoprazole, 40 mg, Oral, qAM AC risperiDONE, 6 mg, Oral, Nightly rosuvastatin, 10 mg, Oral, Daily sennosides, 2 tablet, Oral, BID tamsulosin, 0.4 mg, Oral, Daily traZODone, 200 mg, Oral, Nightly Assessment Acute metabolic encephalopathy Acute UTI Mentation changes in setting of UTI Changes to PO keflex to complete abx course Mentation returned to baseline UC reviewed Debility PT/OT recommending SNF Diabetes insipidus Mild hyponatremia CKD stage 3 Nephrology following Fluid restrictions Monitor daily BMP Stable sodium levels HTN HLD Depression and anxiety Hypothyroidism Chronic anemia Home medications reviewed and resumed as indicated. Medical Decision Making 07/03/24: patient with acute metabolic encephalopathy in setting of acute UTI. She was treated with broad coverage abx, mentation improved, transitioned to PO keflex. UC growing out gale sensitive E coli. She has a history of diabetes insipidus and hyponatremia in setting of CKD stage 3, nephrology on consult, patient placed on fluid restrictions, stable sodium levels. Patient cleared by nephrology for discharge. PT/OT recommended SNF, patient agreeable.. Awaiting auth. CM following. CBC and BMP in the AM. 07/04/24: patient stable on PO abx. Patient is from assisted living, CM to discuss with [facility] if they are able to accommodate her current needs or if SNF is needed. Message sent to CM for update. Otherwise patient is medically stable for discharge once discharge plan is verified. Labs and vitals reviewed and stable. Nephrology cleared patient for discharge as well. -am labs, replace lytes prn -increase activity -resume home medications as indicated -DVT prophylaxis: [] Lovenox [] Heparin [] SCDs [x] Encourage ambulation [] Already on Anticoagulation Anticipated Discharge - Date - 07/04 vs 07/05 - Location - Skilled Facility vs back to [facility] - Pending the following - auth at SNF Toxic drug monitoring/narrow therapeutic index drug monitoring : # Drug name : # Route administered : # Method of monitoring : Extended Emergency Contact Information Primary Emergency Contact: EstefaniPita Mobile Relation: Parent Preferred language: Northern Irish Mechanism Inspector needed? No Secondary Emergency Contact: Mamadou Jara Relation: Father Sarah Gutierrez DO Division of Hospitalist Medicine [facility]patient Medical [facility] [place]: [employer] Images from the original note were not included. Nephrology Progress Note Patient: Jessy Mckeon Room number: [id number]/[id number] A Date of Admit: 06/28/2024 LOS: 6 days Admitting physician: Estephania Gonzalez MD Referring physician: Sarah Gutierrez DO Assessment/Plan: 1-Non oliguric JOSE A/CKD stage IV: Scr stable. -UOP more reasonable. Off fluid restrictions and loop diuretic. - removed infante, passed voiding trial. Tolerating flomax. 2-Hyponatremia: -serum sodium 132 (goal > 130). -given history of DI and large urine output, will remove fluid restriction and continue to observe. -Nephrogenic DI/Arginine Vasopression Resistance: ideally would recommend low salt (100 mEq/day) and low protein (< 1 g/kg/day) to lower osmolar load and minimize urine volume but patient unlikely to comply. Other options: thiazide/amiloride/NSAIDs are not great options given underlying CKD. 3-Other electrolytes/acid-base: -potassium acceptable. -calcium acceptable. -phosphorus acceptable. -bicarb stable 4-BP/volume status: -blood pressures accceptable. -on amlodipine 5 mg daily, hydralazine 50 mg tid and metoprolol 100 mg bid 5-Anemia: -last Hgb 8.7 -last ferritin 75 and tsat 22 in Apr -IV Iron (Venofer 400 mg load). -transfusions per primary team 6-ID: -on keflex -urine cx + for E. Coli 7. Secondary hyperparathyroidism, vitamin D deficiency - Vit D 3 supplement. No objection to discharge from renal standpoint. HPI: Jessy Mckeon is a 59 y.o. 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 Initial admit diagnosis: Acute cystitis without hematuria [N30.00] Altered mental status, unspecified altered mental status type [R41.82] Interval history/events: complaining about the number of Diet Cokes she's allowed in a day. Complains of dry mouth. Refusing to work with therapy. Past Medical History: Past Medical History: Diagnosis Date Acid reflux Anxiety Arthritis Asperger syndrome Bipolar disorder (HCC) Chronic kidney disease stage 4 kidney failure Chronic pain Depression Edema of both legs GERD (gastroesophageal reflux disease) Hemorrhoids Hyperlipidemia Hypertension Hypothyroidism Iron (Fe) deficiency anemia Nephrogenic diabetes insipidus (HCC) Pain management Retention of urine, unspecified Sciatica SOB (shortness of breath) GRANT Type II or unspecified type diabetes mellitus without mention of complication, not stated as uncontrolled (HCC) Urinary incontinence nightly Medications: MARS reviewed. amLODIPine, 5 mg, Oral, Daily buprenorphine, 2 patch, TransDERmal, Once cholecalciferol, 1,000 Units, Oral, Daily divalproex, 250 mg, Oral, TID WC DULoxetine, 60 mg, Oral, Daily heparin, 5,000 Units, SubCUTAneous, 2 times per day hydrALAZINE, 50 mg, Oral, TID influenza, 0.5 mL, IntraMUSCular, Prior to discharge lamoTRIgine, 200 mg, Oral, Nightly levothyroxine, 175 mcg, Oral, Daily metoprolol tartrate, 100 mg, Oral, BID pantoprazole, 40 mg, Oral, qAM AC risperiDONE, 6 mg, Oral, Nightly rosuvastatin, 10 mg, Oral, Daily sennosides, 2 tablet, Oral, BID tamsulosin, 0.4 mg, Oral, Daily traZODone, 200 mg, Oral, Nightly Review of Systems: + chronic pain and fatigue All other ROS negative except those noted above. Physical Exam: Vitals: 07/03/24 0755 07/03/24 1436 07/03/24 1928 07/04/24 0748 BP: 117/67 135/75 114/62 109/72 BP Location: Right arm Patient Position: Lying Pulse: 68 60 65 64 Resp: 16 20 17 Temp: 36.4 C (97.5 F) 36.9 C (98.5 F) 36.8 C (98.2 F) TempSrc: Temporal Temporal Temporal SpO2: 98% 97% 96% 97% Weight: Admission weight: 125 kg (275 lb 9.6 oz) Wt Readings from Last 3 Encounters: 06/28/24 125 kg (275 lb 9.6 oz) 06/14/24 125 kg (276 lb) 09/04/23 111 kg (245 lb) General Appearance no acute distress, comfortable appearing, looks stated age. Alert and oriented x 3 HEENT Neck anicteric sclera, moist mucus membranes, normal external ears/nares, no facial edema supple neck, midline trachea without tracheal deviation Chest symmetric, normal shape/expansion Heart RRR, no audible pericardial rubs Lungs clear to auscultation bilaterally, unlabored respirations without conversational dyspnea, no accessory muscle use, room air Abdomen Skin soft without distension, no palpable organomegaly, normal bowel sounds no rash or subcutaneous nodules, warm and dry skin with good turgor Musculoskeletal no synovitis or joint effusions noted, no leg edema no infante catheter present Neurologic no resting tremor. Able to follow commands. Psychiatric mood and affect animated, insight and judgment intact. Memory recall intact LABS: Recent Labs 07/02/24 01407/03/24 0123 07/04/24 0346 WBC 5.9 6.0 6.0 HGB 8.7* 8.7* 8.3* HCT 27.2* 27.4* 26.4* MCV 96.1 96.5 96.0 PLT 190 185 216 Lab Results Component Value Date IRON 53 04/17/2024 TIBC 244 (L) 04/17/2024 FERRITIN 75 04/17/2024 Lab Results Component Value Date [id number] 913 04/05/2022 FOLATE >20.0 04/05/2022 Recent Labs 07/02/24 01407/03/24 0123 07/04/24 0346 NA 131* 132* 129* K 4.4 4.6 4.4 CL 103 103 99 CO2 23 26 25 BUN 27* 32* 33* CREATININE 2.66* 2.81* 2.68* GLUCOSE 79 76 76 CALCIUM 8.4 8.4 8.8 PHOS -- 4.5 -- ANIONGAP 6 2* 5 Lab Results Component Value Date PTH 161.6 (H) 04/17/2024 CALCIUM 8.8 07/04/2024 PHOS 4.5 07/03/2024 Diagnostic Studies: CXR: reviewed in PACS. Personally reviewed available data [labs, MARS, radiologic studies, and electronic records]. Please call with any questions. Pager: [phone] Office: [phone]. Images from the original note were not included. OCCUPATIONAL THERAPY [facility] Name/MRN: Jessy Mckeon ([id number]) Date: 07/04/2024 Chart reviewed completed, attempted treatment with pt stating her joints our hurting. Alternatives provided with pt then stating multitude of reasons she cannot participate in therapy this date and that she will get up and moving when she gets home. Will continue to follow as schedule permits. TANA Sotomayor Cosigned by Marycruz Salvador OT at 07/04/2024 1:09 PM EST Images from the original note were not included. PHYSICAL THERAPY [facility] Name/MRN: Jessy Mckeon ([id number]) Date: 07/04/2024 Chart reviewed. Introduced self and role. Pt declines therapy, requests to come back 2/2 wanting her medications. I told her we could wait until her meds were passed and then she told me to come back after she had a nap. Will continue to follow and attempt as pt agreeable. Puneet Norton, PT Images from the original note were not included. Nephrology Progress Note Patient: Jessy Mckeon Room number: [id number]/[id number] A Date of Admit: 06/28/2024 LOS: 5 days Admitting physician: Estephania Gonzalez MD Referring physician: Sarah Gutierrez DO Assessment/Plan: 1-Non oliguric JOSE A/CKD stage IV: Scr stable. -UOP more reasonable. Off fluid restrictions and loop diuretic. - remove infante, voiding trial. Tolerating flomax. 2-Hyponatremia: -serum sodium 132 (goal > 130). -given history of DI and large urine output, will remove fluid restriction and continue to observe. -Nephrogenic DI/Arginine Vasopression Resistance: ideally would recommend low salt (100 mEq/day) and low protein (< 1 g/kg/day) to lower osmolar load and minimize urine volume but patient unlikely to comply. Other options: thiazide/amiloride/NSAIDs are not great options given underlying CKD. 3-Other electrolytes/acid-base: -potassium acceptable. -calcium acceptable. -phosphorus acceptable. -bicarb 26 stable 4-BP/volume status: -blood pressures accceptable. -on amlodipine 5 mg daily, hydralazine 50 mg tid and metoprolol 100 mg bid 5-Anemia: -last Hgb 8.7 -last ferritin 75 and tsat 22 in Apr -IV Iron. -transfusions per primary team 6-ID: -on keflex -urine cx + for E. Coli 7. Secondary hyperparathyroidism, vitamin D deficiency - Vit D 3 supplement. No objection to discharge from renal standpoint. HPI: Jessy Mckeon is a 59 y.o. 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 Initial admit diagnosis: Acute cystitis without hematuria [N30.00] Altered mental status, unspecified altered mental status type [R41.82] Interval history/events: feeling about the same. Requesting removal of infante. Not working with therapy. Past Medical History: Past Medical History: Diagnosis Date Acid reflux Anxiety Arthritis Asperger syndrome Bipolar disorder (HCC) Chronic kidney disease stage 4 kidney failure Chronic pain Depression Edema of both legs GERD (gastroesophageal reflux disease) Hemorrhoids Hyperlipidemia Hypertension Hypothyroidism Iron (Fe) deficiency anemia Nephrogenic diabetes insipidus (HCC) Pain management Retention of urine, unspecified Sciatica SOB (shortness of breath) GRANT Type II or unspecified type diabetes mellitus without mention of complication, not stated as uncontrolled (HCC) Urinary incontinence nightly Medications: MARS reviewed. amLODIPine, 5 mg, Oral, Daily buprenorphine, 2 patch, TransDERmal, Once divalproex, 250 mg, Oral, TID WC DULoxetine, 60 mg, Oral, Daily heparin, 5,000 Units, SubCUTAneous, 2 times per day hydrALAZINE, 50 mg, Oral, TID influenza, 0.5 mL, IntraMUSCular, Prior to discharge lamoTRIgine, 200 mg, Oral, Nightly levothyroxine, 175 mcg, Oral, Daily metoprolol tartrate, 100 mg, Oral, BID pantoprazole, 40 mg, Oral, qAM AC risperiDONE, 6 mg, Oral, Nightly rosuvastatin, 10 mg, Oral, Daily sennosides, 2 tablet, Oral, BID tamsulosin, 0.4 mg, Oral, Daily traZODone, 200 mg, Oral, Nightly Review of Systems: No confusion or tremors. All other ROS negative except those noted above. Physical Exam: Vitals: 07/02/24 0730 07/02/24 1948 07/03/24 0755 07/03/24 1436 BP: 135/87 124/66 117/67 135/75 BP Location: Right arm Patient Position: Lying Pulse: 69 69 68 60 Resp: 17 16 16 Temp: 37.2 C (99 F) 36.8 C (98.2 F) 36.4 C (97.5 F) TempSrc: Temporal Temporal Temporal SpO2: 96% 98% 98% 97% Weight: Admission weight: 125 kg (275 lb 9.6 oz) Wt Readings from Last 3 Encounters: 06/28/24 125 kg (275 lb 9.6 oz) 06/14/24 125 kg (276 lb) 09/04/23 111 kg (245 lb) General Appearance no acute distress, comfortable appearing, looks stated age. Alert and oriented x 3 HEENT Neck anicteric sclera, moist mucus membranes, normal external ears/nares, no facial edema supple neck, midline trachea without tracheal deviation Chest symmetric, normal shape/expansion, no chest wall/sternal tenderness Heart RRR, no audible pericardial rubs Lungs clear to auscultation bilaterally, unlabored respirations without conversational dyspnea, no accessory muscle use, room air, laying flat Abdomen Skin soft without distension, no palpable organomegaly, normal bowel sounds, no rebound or guarding no rash or subcutaneous nodules, warm and dry skin with good turgor Musculoskeletal no synovitis or joint effusions noted, no leg edema, infante catheter present Neurologic no resting tremor. Able to follow commands. Psychiatric mood and affect animated, insight and judgment intact. Memory recall intact LABS: Recent Labs 07/01/24 0549 07/02/24 0147 07/03/24 0123 WBC 6.6 5.9 6.0 HGB 8.4* 8.7* 8.7* HCT 26.3* 27.2* 27.4* MCV 97.8 96.1 96.5 PLT 178 190 185 Lab Results Component Value Date IRON 53 04/17/2024 TIBC 244 (L) 04/17/2024 FERRITIN 75 04/17/2024 Lab Results Component Value Date [id number] 913 04/05/2022 FOLATE >20.0 04/05/2022 Recent Labs 07/01/24 1706 07/02/24 0147 07/03/24 0123 NA 129* 131* 132* K 4.5 4.4 4.6 CL 100 103 103 CO2 24 23 26 BUN 26* 27* 32* CREATININE 2.64* 2.66* 2.81* GLUCOSE 89 79 76 CALCIUM 8.3* 8.4 8.4 PHOS -- -- 4.5 ANIONGAP 5 6 2* Lab Results Component Value Date PTH 161.6 (H) 04/17/2024 CALCIUM 8.4 07/03/2024 PHOS 4.5 07/03/2024 Diagnostic Studies: CXR: reviewed in PACS. Personally reviewed available data [labs, MARS, radiologic studies, and electronic records]. Please call with any questions. Pager: [phone] Office: [phone]. Images from the original note were not included. PHYSICAL THERAPY [facility] Name/MRN: Jessy Mckeon ([id number]) Date: 07/03/2024 Chart review completed. PT treatment attempted for second trial this date. Patient sleeping very soundly at this time and awakens minimally to verbal and tactile stimuli at this time, quickly returning to sleep and snoring. RN amy reports this has been normal this afternoon. Will continue to follow and re-attempt as appropriate. Loraine Garcia PT Hospitalist Progress Note 07/03/2024 [phone]: Please page me ([phone]) for patient care issues. [phone]: Please page [facility] [place] Hospital[place] for any issues. Subjective: Admit Date: 06/28/2024 PCP: Edith Pierce MD Room#: B1-156/B1-156 A Interval History: patient admitted for AMS in setting of UTI. No overnight issues. Denies chest pain, sob, abdominal pain, nausea, vomiting, diarrhea, constipation, fevers, or chills. Adult diet Regular 24HR INTAKE/OUTPUT: Intake/Output Summary (Last 24 hours) at 07/03/2024 1221 Last data filed at 07/03/2024 0638 Gross per 24 hour Intake 700 ml Output 2850 ml Net -2150 ml Past Medical History: Past Medical History: Diagnosis Date Acid reflux Anxiety Arthritis Asperger syndrome Bipolar disorder (HCC) Chronic kidney disease stage 4 kidney failure Chronic pain Depression Edema of both legs GERD (gastroesophageal reflux disease) Hemorrhoids Hyperlipidemia Hypertension Hypothyroidism Iron (Fe) deficiency anemia Nephrogenic diabetes insipidus (HCC) Pain management Retention of urine, unspecified Sciatica SOB (shortness of breath) GRANT Type II or unspecified type diabetes mellitus without mention of complication, not stated as uncontrolled (HCC) Urinary incontinence nightly LABS: CBC: Recent Labs 07/01/24 0549 07/02/24 01407/03/24 012 WBC 6.6 5.9 6.0 RBC 2.69* 2.83* 2.84* HGB 8.4* 8.7* 8.7* HCT 26.3* 27.2* 27.4* MCV 97.8 96.1 96.5 RDW 13.2 13.1 13.4 PLT 178 190 185 BMP: Recent Labs 07/01/24 1706 07/02/2414607/03/24 012 NA 129* 131* 132* K 4.5 4.4 4.6 CL 100 103 103 CO2 24 23 26 BUN 26* 27* 32* CREATININE 2.64* 2.66* 2.81* GLUCOSE 89 79 76 CALCIUM 8.3* 8.4 8.4 ANIONGAP 5 6 2* LIVER PROFILE:No results for input(s): "AST", "ALT", "BILITOT", "ALKPHOS", "PROT" in the last 72 hours. No lab exists for component: LABALBU PT/INR: No results for input(s): "PROTIME", "INR" in the last 72 hours. CARDIAC ENZYMES: No results for input(s): "TROPONINI" in the last 72 hours. Procalcitonin: No results found for: "PROCAL" COVID-19 PCR: No results for input(s): "COVID19" in the last 72 hours. Objective: Vitals: BP 117/67 Pulse 68 Temp 36.4 C (97.5 F) (Temporal) Resp 16 Wt 275 lb 9.6 oz (125 kg) SpO2 98% BMI 50.41 kg/m Pulse Ox: SpO2 Av % Min: 98 % Max: 98 % Supplemental O2: General appearance: No apparent distress, appears stated age and cooperative with exam, obese female in NAD Respiratory: diminished BL, no wheezing. Cardiovascular: Regular rate and rhythm with no murmur Abdomen: Soft, non-tender, non-distended Skin: Skin color, texture, turgor normal. No rashes or lesions. Distal pulses intact in BL LE, no edema in BL LE. Neurologic: grossly non-focal. Medications: amLODIPine, 5 mg, Oral, Daily buprenorphine, 2 patch, TransDERmal, Once cephalexin, 500 mg, Oral, TID divalproex, 250 mg, Oral, TID WC DULoxetine, 60 mg, Oral, Daily heparin, 5,000 Units, SubCUTAneous, 2 times per day hydrALAZINE, 50 mg, Oral, TID influenza, 0.5 mL, IntraMUSCular, Prior to discharge lamoTRIgine, 200 mg, Oral, Nightly levothyroxine, 175 mcg, Oral, Daily metoprolol tartrate, 100 mg, Oral, BID pantoprazole, 40 mg, Oral, qAM AC risperiDONE, 6 mg, Oral, Nightly rosuvastatin, 10 mg, Oral, Daily tamsulosin, 0.4 mg, Oral, Daily traZODone, 200 mg, Oral, Nightly Assessment Acute metabolic encephalopathy Acute UTI Mentation changes in setting of UTI Changes to PO keflex to complete abx course Mentation returned to baseline UC reviewed Debility PT/OT recommending SNF Diabetes insipidus Mild hyponatremia CKD stage 3 Nephrology following Fluid restrictions Monitor daily BMP Stable sodium levels HTN HLD Depression and anxiety Hypothyroidism Chronic anemia Home medications reviewed and resumed as indicated. Medical Decision Making 07/03/24: patient with acute metabolic encephalopathy in setting of acute UTI. She was treated with broad coverage abx, mentation improved, transitioned to PO keflex. UC growing out gale sensitive E coli. She has a history of diabetes insipidus and hyponatremia in setting of CKD stage 3, nephrology on consult, patient placed on fluid restrictions, stable sodium levels. Patient cleared by nephrology for discharge. PT/OT recommended SNF, patient agreeable.. Awaiting auth. CM following. CBC and BMP in the AM. -am labs, replace lytes prn -increase activity -resume home medications as indicated -DVT prophylaxis: [] Lovenox [] Heparin [] SCDs [x] Encourage ambulation [] Already on Anticoagulation Anticipated Discharge - Date - 07/04/24 - Location - Skilled Facility - Pending the following - auth at Toxic drug monitoring/narrow therapeutic index drug monitoring : # Drug name : # Route administered : # Method of monitoring : Extended Emergency Contact Information Primary Emergency Contact: Pita Jara Mobile Relation: Parent Preferred language: Northern Irish Mechanism Inspector needed? No Secondary Emergency Contact: Mamadou Jara Relation: Father Sarah Gutierrez DO [facility] PAGER: IL[employer] Global chat Images from the original note were not included. PHYSICAL THERAPY [facility] Name/MRN: Jessy Mckeon ([id number]) Date: 07/03/2024 Chart review completed. Patient currently with RN at bedside attempting to get IV access with ultrasound. Patient not available to participate in PT session. Will continue to follow and re-attempt as schedule allows. Loraine Garcia PT Images from the original note were not included. Nephrology Progress Note Patient: Jessy Mckeon Room number: B1-156/B1-156 A Date of Admit: 06/28/2024 LOS: 4 days Admitting physician: Estephania Gonzalez MD Referring physician: Tao Conte MD Assessment/Plan: 1-Non oliguric JOSE A/CKD stage IV: Scr heading back to [facility]. -UOP> 6 liters, extraneous fluids stopped. Will discontinue loop diuretic. 2-Hyponatremia: -serum sodium 131 (at goal). -given history of DI and large urine output, will remove fluid restriction and continue to observe, we can later add a less tight FR, goal -Nehrogenic DI/Arginine Vasopression Resistance: ideally would recommend low salt (100 mEq/day) and low protein (< 1 g/kg/day) to lower osmolar load and minimize urine volume but patient unlikely to comply. Other options: thiazide/amiloride/NSAIDs and not great options given underlying CKD. 3-Other electrolytes/acid-base: -last K was 4.4 and Ca 8.2 -bicarb 233 stable 4-BP/volume status: -blood pressures accceptable. -on amlodipine 5 mg daily, hydralazine 50 mg tid and metoprolol 100 mg bid 5-Anemia: -last Hgb 8.7 -last ferritin 75 and tsat 22 in Apr -will give 1 dose IV iron tomorrow. -transfusions per primary team 6-ID: -on keflex -urine cx + for E. Coli 7. Secondary hyperparathyroidism, vitamin D deficiency - on supplement. No objection to discharge from renal standpoint. HPI: Jessy Mckeon is a 59 y.o. 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 Initial admit diagnosis: Acute cystitis without hematuria [N30.00] Altered mental status, unspecified altered mental status type [R41.82] Interval history/events: complains about limited fluid restriction. Appetite better. Denies dyspnea. Switched from IV Rocehin to oral Keflex. Past Medical History: Past Medical History: Diagnosis Date Acid reflux Anxiety Arthritis Asperger syndrome Bipolar disorder (HCC) Chronic kidney disease stage 4 kidney failure Chronic pain Depression Edema of both legs GERD (gastroesophageal reflux disease) Hemorrhoids Hyperlipidemia Hypertension Hypothyroidism Iron (Fe) deficiency anemia Nephrogenic diabetes insipidus (HCC) Pain management Retention of urine, unspecified Sciatica SOB (shortness of breath) GRANT Type II or unspecified type diabetes mellitus without mention of complication, not stated as uncontrolled (HCC) Urinary incontinence nightly Medications: MARS reviewed. amLODIPine, 5 mg, Oral, Daily buprenorphine, 2 patch, TransDERmal, Once cephalexin, 500 mg, Oral, TID divalproex, 250 mg, Oral, TID WC DULoxetine, 60 mg, Oral, Daily furosemide, 20 mg, Oral, Daily heparin, 5,000 Units, SubCUTAneous, 2 times per day hydrALAZINE, 50 mg, Oral, TID influenza, 0.5 mL, IntraMUSCular, Prior to discharge lamoTRIgine, 200 mg, Oral, Nightly levothyroxine, 175 mcg, Oral, Daily metoprolol tartrate, 100 mg, Oral, BID pantoprazole, 40 mg, Oral, qAM AC risperiDONE, 6 mg, Oral, Nightly rosuvastatin, 10 mg, Oral, Daily tamsulosin, 0.4 mg, Oral, Daily traZODone, 200 mg, Oral, Nightly Review of Systems: + urinary frequency. All other ROS negative except those noted above. Physical Exam: Vitals: 07/01/24 0901 07/01/24 1435 07/01/24 1948 07/02/24 0730 BP: 131/78 113/65 101/59 135/87 BP Location: Patient Position: Pulse: 66 66 63 69 Resp: 16 17 Temp: 36.8 C (98.2 F) 37.2 C (99 F) TempSrc: Temporal Temporal SpO2: 96% 96% Weight: Admission weight: 125 kg (275 lb 9.6 oz) Wt Readings from Last 3 Encounters: 06/28/24 125 kg (275 lb 9.6 oz) 06/14/24 125 kg (276 lb) 09/04/23 111 kg (245 lb) General Appearance no acute distress, comfortable appearing, looks stated age. Alert and oriented x 3 HEENT Neck anicteric sclera, moist mucus membranes, normal external ears/nares, no facial edema supple neck, midline trachea without tracheal deviation, no discernible JVD, no palpable cervical or supraclavicular lymph nodes Chest symmetric, normal shape/expansion, no chest wall/sternal tenderness Heart RRR, no audible pericardial rubs, no audible murmurs Lungs clear to auscultation bilaterally, unlabored respirations without conversational dyspnea, no accessory muscle use, laying flat, on room air. Abdomen Skin soft without distension, no palpable organomegaly, normal bowel sounds, no rebound or guarding no rash or subcutaneous nodules, warm and dry skin with good turgor Musculoskeletal no synovitis or joint effusions noted, no leg edema, infante catheter present Neurologic no resting tremor. Able to follow commands. Psychiatric mood and affect animated, insight and judgment intact. Memory recall intact LABS: Recent Labs 06/30/24 0528 07/01/24 0549 07/02/24 0147 WBC 6.6 6.6 5.9 HGB 7.4* 8.4* 8.7* HCT 24.2* 26.3* 27.2* MCV 99.2* 97.8 96.1 PLT 147 178 190 Lab Results Component Value Date IRON 53 04/17/2024 TIBC 244 (L) 04/17/2024 FERRITIN 75 04/17/2024 Lab Results Component Value Date [id number] 04/05/2022 FOLATE >20.0 04/05/2022 Recent Labs 07/01/24 0549 07/01/24 1706 07/02/24 0147 NA 132* 129* 131* K 4.7 4.5 4.4 CL 103 100 103 CO2 23 24 23 BUN 24* 26* 27* CREATININE 2.84* 2.64* 2.66* GLUCOSE 76 89 79 CALCIUM 8.2* 8.3* 8.4 ANIONGAP 6 5 6 Lab Results Component Value Date PTH 161.6 (H) 04/17/2024 CALCIUM 8.4 07/02/2024 PHOS 3.8 04/17/2024 Diagnostic Studies: CXR: reviewed in PACS. Personally reviewed available data [labs, MARS, radiologic studies, and electronic records]. Please call with any questions. Pager: [phone] Office: [phone]. Hospitalist Progress Note 07/02/2024 [phone]: Please page me ([phone]) for patient care issues. [phone]: Please page [facility] night Hospitalist for any issues. Subjective: Admit Date: 06/28/2024 PCP: Edith Pierce MD Room#: B1-156/B1-156 A Interval History: No overnight issues. Denies chest pain, sob, abdominal pain, nausea, vomiting, diarrhea, constipation, fevers, or chills. Adult diet Regular @[id number]@ 24HR INTAKE/OUTPUT: Intake/Output Summary (Last 24 hours) at 07/02/2024 1243 Last data filed at 07/02/2024 0653 Gross per 24 hour Intake 300 ml Output 4250 ml Net -3950 ml Past Medical History: Past Medical History: Diagnosis Date Acid reflux Anxiety Arthritis Asperger syndrome Bipolar disorder (HCC) Chronic kidney disease stage 4 kidney failure Chronic pain Depression Edema of both legs GERD (gastroesophageal reflux disease) Hemorrhoids Hyperlipidemia Hypertension Hypothyroidism Iron (Fe) deficiency anemia Nephrogenic diabetes insipidus (HCC) Pain management Retention of urine, unspecified Sciatica SOB (shortness of breath) GRANT Type II or unspecified type diabetes mellitus without mention of complication, not stated as uncontrolled (HCC) Urinary incontinence nightly LABS: CBC: Recent Labs 06/30/24 0528 07/01/24 0549 07/02/24 0147 WBC 6.6 6.6 5.9 RBC 2.44* 2.69* 2.83* HGB 7.4* 8.4* 8.7* HCT 24.2* 26.3* 27.2* MCV 99.2* 97.8 96.1 RDW 12.9 13.2 13.1 PLT 147 178 190 BMP: Recent Labs 07/01/24 0549 07/01/24 1706 07/02/24 014 NA 132* 129* 131* K 4.7 4.5 4.4 CL 103 100 103 CO2 23 24 23 BUN 24* 26* 27* CREATININE 2.84* 2.64* 2.66* GLUCOSE 76 89 79 CALCIUM 8.2* 8.3* 8.4 ANIONGAP 6 5 6 LIVER PROFILE: No results for input(s): "AST", "ALT", "BILITOT", "ALKPHOS", "PROT" in the last 72 hours. No lab exists for component: LABALBU PT/INR: No results for input(s): "PROTIME", "INR" in the last 72 hours. CARDIAC ENZYMES: No results for input(s): "TROPONINI" in the last 72 hours. Procalcitonin: No results found for: "PROCAL" COVID-19 PCR: No results for input(s): "COVID19" in the last 72 hours. Objective: Vitals: BP 135/87 Pulse 69 Temp 37.2 C (99 F) (Temporal) Resp 17 Wt 275 lb 9.6 oz (125 kg) SpO2 96% BMI 50.41 kg/m Pulse Ox: SpO2 Av % Min: 96 % Max: 96 % Supplemental O2: General appearance: No apparent distress, appears stated age and cooperative with exam HEENT: Normal cephalic, atraumatic without obvious deformity. Pupils equal, round, and reactive to light. Extra ocular muscles intact. Conjunctivae/corneas clear. Neck: Supple, with full range of motion. No jugular venous distention. Trachea midline. No lymphadenopathy. Respiratory: Normal respiratory effort. Clear to auscultation, bilaterally without Rales/Wheezes/Rhonchi. Cardiovascular: Regular rate and rhythm with normal S1/S2 without murmurs, rubs or gallops. Abdomen: Soft, non-tender, non-distended with normal bowel sounds. No rebound or guarding. Musculoskeletal: No clubbing, cyanosis or edema bilaterally. Full range of motion without deformity, +2 peripheral pulses in all extremities. Skin: Skin color, texture, turgor normal. No rashes or lesions. Neurologic: Neurovascularly intact without any focal sensory/motor deficits. Cranial nerves: II-XII intact, grossly non-focal. Medications: amLODIPine, 5 mg, Oral, Daily buprenorphine, 2 patch, TransDERmal, Once cephalexin, 500 mg, Oral, TID divalproex, 250 mg, Oral, TID WC DULoxetine, 60 mg, Oral, Daily furosemide, 20 mg, Oral, Daily heparin, 5,000 Units, SubCUTAneous, 2 times per day hydrALAZINE, 50 mg, Oral, TID influenza, 0.5 mL, IntraMUSCular, Prior to discharge lamoTRIgine, 200 mg, Oral, Nightly levothyroxine, 175 mcg, Oral, Daily metoprolol tartrate, 100 mg, Oral, BID pantoprazole, 40 mg, Oral, qAM AC risperiDONE, 6 mg, Oral, Nightly rosuvastatin, 10 mg, Oral, Daily tamsulosin, 0.4 mg, Oral, Daily traZODone, 200 mg, Oral, Nightly Assessment Acute metabolic encephalopathy. Urinary tract infection Mild hyponatremia-in the setting of diabetes insipidus History of: Hypertension Hyperlipidemia Depression/anxiety Hypothyroidism Chronic kidney disease stage IIIb Chronic anemia. Plan: Confusion is improving, mental status close to baseline. Urine cultures growing E. coli more than 100,000-pansensitive. Discontinued ceftriaxone started on Keflex to finish the course Sodium levels are improving. Nephrology came and evaluated the patient given her history of diabetes insipidus and large urine output discontinued fluid restriction and recommended to monitor with BMP. Appreciate nephrology recommendations Other home medications reviewed and resumed appropriately. PT OT evaluation Follow-up CBC BMP ordered DVT prophylaxis: Lovenox daily. Disposition: Patient is complaining of significant weakness. PT OT recommending custodial facility. 06/29-called patient's mother updated about patient's current condition and explained the plan. Also requested patient mother to bring home dose buprenorphine patch-as our pharmacy is not carrying patient's current dose -am labs, replace lytes prn -increase activity -DVT prophylaxis: [] Lovenox [] Heparin [] SCDs [x] Encourage ambulation [] Already on Anticoagulation Advance Directive: Full Code Discharge planning: TBD Tao Conte MD Division of Hospitalist Medicine Inpatient Medical Services/[facility] PAGER: [phone] Images from the original note were not included. OCCUPATIONAL THERAPY [facility] Treatment Note Name/MRN: Jessy Mckeon ([id number]) Date of : 1965 Age: 59 y.o. Room/Bed: B1-156/B1-156 A Visit #: 2 out of 7 visits Discharge Recommendation: Snf Facility Prior Level of Function Prior Level of ADL Function: Independent Prior Level of Mobility: Independent; Device: Rollator Prior Level of Transfers: Independent Assessment Pt is making slow progress with OT for ADLs and transfers with pt overall at a min to max A level with pt limited from fatigue, decrease bal and decrease strength. Pt does remain below baseline and is a high fall risk at this time. Pt would benefit from ongoing skilled OT tx to increase indep with ADLs and transfers. OT is changing recommendation to SNF at discharge. Collaborated changes with OTR. Subjective Pt supine in bed upon arrival and agreeable to OT tx with encouraging. Pain: Pt reports chronic generalized pain but does not rate Medical Precautions: No active isolations Proper PPE donned/doffed in accordance with facility standards. Fall Risk: Shelton Fall Risk Score: 60 (Medium Risk) Shelton Fall Risk Score: 60 (High Risk) Precautions/Restrictions: N/A Family/Caregiver Present: none Objective ADLs LE Dressing: Max Assist Toileting: Min Assist Pt training for LB ADLs while seated with intermittent standing with max A with pt having difficulty managing initiation of items. Pt completes toilet hygiene while seated with setup. Bed Mobility Supine to sit: Min Assist Sit to supine: Max Assist Pt training for bed mob with HOB elevated and using bed rail with assist for BLE and trunk with strategies to increase indep Transfers/Mobility Sit to stand: Min Assist Stand to sit: Min Assist Toilet: Min Assist Standing balance: Min Assist Functional mobility: Min Assist Pt training for transfers to FWW with cues for tech and safety with fair carryover by pt with pt limited from decrease bal and weakness. Pt completed toilet transfer with use of grab bar and safety cues with fair carryover. Pt rustam up to 2 min intervals of standing with FWW for ADLs and mob with unsteadiness noted and lack of safety awareness. Device(s) used: Front wheeled walker and Grab bars Cognition - Arousal/alertness: delayed responses to stimuli - Following commands: inconsistently follows commands - Sequencing: requires cues for some Plan Continue acute OT per plan of care. Safety/Education Safety Safety Devices in place: All fall risk precautions in place, call light within reach, left in bed, bed alarm in place, gait belt, patient at risk for falls, and nurse notified Restraints: No Education Education Given To: patient Education Provided: Precautions, ADL Adaptive Strategies, Transfer Training, Fall Prevention Education, and Discharge Recommendations Education Method: Verbal Barriers to Learning: Cognition Education Outcome: Continued Education Needed AM-PAC AM-PAC Inpatient Daily Activity Raw Score: 17 ADL Inpatient CMS G-Code Modifier: CK Goals Patient Stated Goal: to get better Encounter Problems Encounter Problems (Active) Balance Patient will tolerate standing for 3 minutes mod I at fww to allow increased independence in ADLs. (Progressing) Start: 06/29/24 Expected End: 07/13/24 Dressing Upper Extremities Patient will complete upper body ADLs mod I. (Not Addressed) Start: 06/29/24 Expected End: 07/13/24 Dressings Lower Extremities Patient will complete lower body ADLs mod I. (Progressing) Start: 06/29/24 Expected End: 07/13/24 Mobility Patient will demonstrate functional ambulation mod I with fww. (Progressing) Start: 06/29/24 Expected End: 07/13/24 Toileting Patient will complete toileting tasks at standard toilet with modified independence. (Progressing) Start: 06/29/24 Expected End: 07/13/24 Transfers Patient will complete functional transfer with rolling walker with modified independence in order to prepare for ambulation. (Progressing) Start: 06/29/24 Expected End: 07/13/24 Therapy Time Individual Co-treatment Time In 1052 Time Out 1115 Minutes 23 Timed Code Treatment Minutes: 23 Minutes (1 ADL, 1 ACT) JOCY Collins/Kesha Cosigned by Marycruz Salvador OT at 07/03/2024 8:29 AM EST Images from the original note were not included. PHYSICAL THERAPY [facility] Treatment Note Name/MRN: Jessy Mckeon ([id number]) Date of : 1965 Age: 59 y.o. Room/Bed: B1-156/B1-156 A Visit #: 1 out of 5 visits Discharge Recommendation: Snf Facility (Discussed change in recommendation with PT due to need for increased level of assist to safely mobilize) Equipment Needed: No Prior Level of Function Prior Level of ADL Function: Independent Prior Level of Mobility: Independent; Device: Rollator Prior Level of Transfers: Independent Assessment Treatment today was focused on mobility and strengthening with pt continuing to require assist to safely complete all transfers, bed mobility and gait and exercises. Pt requires MIN A for bed mobility, transfers and gait with noted increased impulsivity with movements which increases fall risks as well as varying gait speed. Pt voices wanting to become stronger but when attempting to perform exercises, pt is self limiting. Pt will continue to benefit from current recommendation to improve functional independence but if to return to [place] will require 24 hour assist for safety as well as [facility] Subjective Pt agreeable to therapy. Observation Catheter intact Vitals BP 135/87 taken by aide prior to treatment Pain: Pt reports pain all over but does not rate. Medical Precautions: No active isolations Proper PPE donned/doffed in accordance with facility standards. Fall Risk: Shelton Fall Risk Score: 60 (Medium Risk) Shelton Fall Risk Score: 60 (High Risk) Precautions/Restrictions: N/A Overall Cognitive Status: Exceptions - Following commands: follows one step commands with repetition - Attention span: attends with cues to redirect - Memory: decreased recall of precautions - Safety judgement: decreased awareness of need for assistance and decreased awareness of need for safety - Problem solving: assistance required to identify errors made and assistance required to correct errors made - Insights: decreased awareness of deficits - Initiation: requires cues for some - Sequencing: requires cues for some Overall Orientation Status: Oriented to Place and Oriented to Person Family/Caregiver Present: none Objective Bed Mobility Supine to sit: Min Assist Sit to supine: Min Assist Pt demonstrates attempts to initiate with assist to stabilize trunk during transition with pt requiring increased time to complete. Pt required cueing for technique to return to supine with light assist to elevate LE's onto bed and cueing to reposition in middle of bed. Pt reports that she sleeps in a (?) lift chair /electric recliner at [place] Transfers/Mobility Sit to stand: Min Assist Stand to sit: Min Assist Pt demonstrates poor hand placement 50 % of time during transitions with repeated cues provided to attempt to correct to increase safety. Pt slightly better when standing self from chairs with armrests. Pt demonstrated never reaching back to control descent and lacks eccentric control which is a safety risk. Device(s) used: Front wheeled walker Ambulation Ambulation 1 Assistive device(s) used: Front wheeled walker Assist level: Min Assist Distance (ft): 12' x 2, 15' x 1 and 20' x 1 Quality of gait: Pt walks with varying gait sequence of step to to quick reciprocal pace. Pt walks with head down - cued to look up but reports need to look at floor to know where she is walking. Pt requires assist to control walker advancement as well - all of which increase fall risk. Pt not open to education for safety. Balance During Session: Posture: fair Sitting - Static: Min Assist tendency for posterior lean Sitting - Dynamic: Min Assist tendency for posterior lean Standing - Static: Min Assist Standing - Dynamic: Min Assist Exercises Exercises Hip Flexion: 2 sets / 10 reps in sitting B LE alternating Ankle Pumps: 2 sets / 10 reps each in sitting of dorsi flexion and plantarflexion B LE Comments: Exercises performed to improve strength and activity tolerance for mobility with pt able to teach back but requiring increased cueing to stay on task. Pt declined to attempt exercises with request to return to bed. Educated on benefit of increasing her activity and strength but pt continued to decline an request to return to bed Plan Continue acute PT per plan of care. Safety/Education Safety Safety Devices in place: All fall risk precautions in place, call light within reach, left in bed, gait belt, patient at risk for falls, and nurse notified Restraints: No Education Education Given To: patient Education Provided: PT Role, PT Goals, Gait Training, Plan of Care, Home Exercise Program, Transfer Training, Equipment, and Discharge Recommendations Education Method: Verbal, Demonstration, and Teach Back Barriers to Learning: Cognition Education Outcome: Continued Education Needed Outcome Measures AM-PAC AM-PAC Inpatient Mobility Raw Score (No Stairs) : 15 Goals Patient Stated Goal: Wants to return to [place] Encounter Problems Encounter Problems (Active) Balance Patient will maintain dynamic standing balance for 3 minutes with modified independence in order to demonstrate decreased risk of falling. (Progressing) Start: 06/29/24 Expected End: 07/06/24 Patient will maintain static standing balance for 3 minutes with modified independence in order to demonstrate decreased risk of falling. (Progressing) Start: 06/29/24 Expected End: 07/06/24 Exercise Patient will complete lower extremity exercises for 1-2 sets / 5-10 reps in order to improve strength and activity tolerance for mobility. (Progressing) Start: 06/29/24 Expected End: 07/06/24 Mobility Patient will ambulate 100 feet with modified independence and rollator in order to improve safety and independence with mobility. (Progressing) Start: 06/29/24 Expected End: 07/06/24 Transfers Patient will perform bed mobility with modified independence in order to improve independence and prepare for out of bed mobility. (Progressing) Start: 06/29/24 Expected End: 07/06/24 Patient will complete functional transfer with rollator with modified independence in order to prepare for ambulation. (Progressing) Start: 06/29/24 Expected End: 07/06/24 Therapy Time Individual Co-treatment Time In 0735 Time Out 0807 Minutes 32 Timed Code Treatment Minutes: 28 Minutes (ther act and gait) Zora Dupree FLOORING GRADER Cosigned by Deanne Dueñas PT at 07/02/2024 9:17 AM EST Hospitalist Progress Note 07/01/2024 [phone]: Please page me ([phone]) for patient care issues. [phone]: Please page [facility] night Hospitalist for any issues. Subjective: Admit Date: 06/28/2024 PCP: Edith Pierce MD Room#: -156/[facility]156 A Interval History: No overnight issues. Denies chest pain, sob, abdominal pain, nausea, vomiting, diarrhea, constipation, fevers, or chills. Adult diet Regular @[id number]@ 24HR INTAKE/OUTPUT: Intake/Output Summary (Last 24 hours) at 07/01/2024 1553 Last data filed at 07/01/2024 1100 Gross per 24 hour Intake -- Output 4700 ml Net -4700 ml Past Medical History: Past Medical History: Diagnosis Date Acid reflux Anxiety Arthritis Asperger syndrome Bipolar disorder (HCC) Chronic kidney disease stage 4 kidney failure Chronic pain Depression Edema of both legs GERD (gastroesophageal reflux disease) Hemorrhoids Hyperlipidemia Hypertension Hypothyroidism Iron (Fe) deficiency anemia Nephrogenic diabetes insipidus (HCC) Pain management Retention of urine, unspecified Sciatica SOB (shortness of breath) GRANT Type II or unspecified type diabetes mellitus without mention of complication, not stated as uncontrolled (HCC) Urinary incontinence nightly LABS: CBC: Recent Labs 06/29/24 01006/30/24 0528 07/01/24 0549 WBC 6.7 6.6 6.6 RBC 2.79* 2.44* 2.69* HGB 8.6* 7.4* 8.4* HCT 27.2* 24.2* 26.3* MCV 97.5 99.2* 97.8 RDW 13.0 12.9 13.2 PLT 164 147 178 BMP: Recent Labs 06/29/24 01006/30/24 0528 07/01/24 0549 NA 130* 127* 132* K 3.7 4.3 4.7 CL 98 101 103 CO2 24 22 23 BUN 20* 21* 24* CREATININE 3.02* 2.81* 2.84* GLUCOSE 120* 82 76 CALCIUM 8.2* 7.7* 8.2* ANIONGAP 8 4 6 LIVER PROFILE: No results for input(s): "AST", "ALT", "BILITOT", "ALKPHOS", "PROT" in the last 72 hours. No lab exists for component: LABALBU PT/INR: No results for input(s): "PROTIME", "INR" in the last 72 hours. CARDIAC ENZYMES: No results for input(s): "TROPONINI" in the last 72 hours. Procalcitonin: No results found for: "PROCAL" COVID-19 PCR: No results for input(s): "COVID19" in the last 72 hours. Objective: Vitals: BP 113/65 Pulse 66 Temp 36.8 C (98.3 F) (Temporal) Resp 18 Wt 275 lb 9.6 oz (125 kg) SpO2 96% BMI 50.41 kg/m Pulse Ox: SpO2 Av.5 % Min: 95 % Max: 96 % Supplemental O2: General appearance: No apparent distress, appears stated age and cooperative with exam HEENT: Normal cephalic, atraumatic without obvious deformity. Pupils equal, round, and reactive to light. Extra ocular muscles intact. Conjunctivae/corneas clear. Neck: Supple, with full range of motion. No jugular venous distention. Trachea midline. No lymphadenopathy. Respiratory: Normal respiratory effort. Clear to auscultation, bilaterally without Rales/Wheezes/Rhonchi. Cardiovascular: Regular rate and rhythm with normal S1/S2 without murmurs, rubs or gallops. Abdomen: Soft, non-tender, non-distended with normal bowel sounds. No rebound or guarding. Musculoskeletal: No clubbing, cyanosis or edema bilaterally. Full range of motion without deformity, +2 peripheral pulses in all extremities. Skin: Skin color, texture, turgor normal. No rashes or lesions. Neurologic: Neurovascularly intact without any focal sensory/motor deficits. Cranial nerves: II-XII intact, grossly non-focal. Medications: amLODIPine, 5 mg, Oral, Daily buprenorphine, 2 patch, TransDERmal, Once cephalexin, 500 mg, Oral, TID divalproex, 250 mg, Oral, TID WC DULoxetine, 60 mg, Oral, Daily furosemide, 20 mg, Oral, Daily heparin, 5,000 Units, SubCUTAneous, 2 times per day hydrALAZINE, 50 mg, Oral, TID influenza, 0.5 mL, IntraMUSCular, Prior to discharge lamoTRIgine, 200 mg, Oral, Nightly levothyroxine, 175 mcg, Oral, Daily metoprolol tartrate, 100 mg, Oral, BID pantoprazole, 40 mg, Oral, qAM AC risperiDONE, 6 mg, Oral, Nightly rosuvastatin, 10 mg, Oral, Daily tamsulosin, 0.4 mg, Oral, Daily traZODone, 200 mg, Oral, Nightly Assessment Acute metabolic encephalopathy. Urinary tract infection Mild hyponatremia-in the setting of diabetes insipidus History of: Hypertension Hyperlipidemia Depression/anxiety Hypothyroidism Chronic kidney disease stage IIIb Chronic anemia. Plan: Confusion is improving, mental status close to baseline. Urine cultures growing E. coli more than 100,000-pansensitive. Discontinued ceftriaxone started on Keflex to finish the course Sodium levels are improving. Nephrology came and evaluated the patient given her history of diabetes insipidus and large urine output discontinued fluid restriction and recommended to monitor with BMP. Appreciate nephrology recommendations Other home medications reviewed and resumed appropriately. PT OT evaluation Follow-up CBC BMP ordered DVT prophylaxis: Lovenox daily. Disposition: Patient is complaining of significant weakness. Awaiting PT OT evaluation and recommendations. Possible requirement of custodial facility before going to assisted living 06/29-called patient's mother updated about patient's current condition and explained the plan. Also requested patient mother to bring home dose buprenorphine patch-as our pharmacy is not carrying patient's current dose -am labs, replace lytes prn -increase activity -DVT prophylaxis: [] Lovenox [] Heparin [] SCDs [x] Encourage ambulation [] Already on Anticoagulation Advance Directive: Full Code Discharge planning: TBD Tao Conte MD Division of Hospitalist Medicine Inpatient Medical Services/[facility]: [phone] Images from the original note were not included. PHYSICAL THERAPY [facility] Name/MRN: Jessy Mckeon ([id number]) Date: 06/30/2024 Chart review completed this date. PT attempted. Pt sleeping. Unable to wake with verbal and tactile cues. RN reports pt is very difficult to wake. PT will continue to follow. Will re-attempt another time/date as schedule permits. Aspen Mercer PTA Cosigned by Jewels Johnson PT at 06/30/2024 2:18 PM EST Hospitalist Progress Note 06/30/2024 [phone]: Please page me ([phone]) for patient care issues. [phone]: Please page [facility] night Hospitalist for any issues. Subjective: Admit Date: 06/28/2024 PCP: Edith Pierce MD Room#: [facility] A Interval History: No overnight issues. Denies chest pain, sob, abdominal pain, nausea, vomiting, diarrhea, constipation, fevers, or chills. Adult diet Regular @[id number]@ 24HR INTAKE/OUTPUT: Intake/Output Summary (Last 24 hours) at 06/30/2024 1337 Last data filed at 06/30/2024 1218 Gross per 24 hour Intake 2868.75 ml Output 3500 ml Net -631.25 ml Past Medical History: Past Medical History: Diagnosis Date Acid reflux Anxiety Arthritis Asperger syndrome Bipolar disorder (HCC) Chronic kidney disease stage 4 kidney failure Chronic pain Depression Edema of both legs GERD (gastroesophageal reflux disease) Hemorrhoids Hyperlipidemia Hypertension Hypothyroidism Iron (Fe) deficiency anemia Nephrogenic diabetes insipidus (HCC) Pain management Retention of urine, unspecified Sciatica SOB (shortness of breath) GRANT Type II or unspecified type diabetes mellitus without mention of complication, not stated as uncontrolled (HCC) Urinary incontinence nightly LABS: CBC: Recent Labs 06/28/24 1201 06/29/24 0101 06/30/24 0528 WBC 10.0 6.7 6.6 RBC 2.86* 2.79* 2.44* HGB 8.8* 8.6* 7.4* HCT 27.8* 27.2* 24.2* MCV 97.2 97.5 99.2* RDW 13.1 13.0 12.9 PLT 186 164 147 BMP: Recent Labs 06/28/24 1201 06/29/24 0101 06/30/24 0528 NA 130* 130* 127* K 3.9 3.7 4.3 CL 98 98 101 CO2 25 24 22 BUN 21* 20* 21* CREATININE 3.23* 3.02* 2.81* GLUCOSE 105* 120* 82 CALCIUM 8.5 8.2* 7.7* ANIONGAP 8 8 4 LIVER PROFILE: Recent Labs 06/28/24 1201 AST 18 ALT 8 BILITOT 0.5 ALKPHOS 80 PROT 6.9 PT/INR: No results for input(s): "PROTIME", "INR" in the last 72 hours. CARDIAC ENZYMES: Recent Labs 06/28/24 1201 TROPONINI <0.012 Procalcitonin: No results found for: "PROCAL" COVID-19 PCR: No results for input(s): "COVID19" in the last 72 hours. Objective: Vitals: BP 129/65 (BP Location: Left arm, Patient Position: Sitting) Pulse 66 Temp 36.5 C (97.7 F) (Temporal) Resp 16 Wt 275 lb 9.6 oz (125 kg) SpO2 96% BMI 50.41 kg/m Pulse Ox: SpO2 Av % Min: 96 % Max: 98 % Supplemental O2: General appearance: No apparent distress, appears stated age and cooperative with exam HEENT: Normal cephalic, atraumatic without obvious deformity. Pupils equal, round, and reactive to light. Extra ocular muscles intact. Conjunctivae/corneas clear. Neck: Supple, with full range of motion. No jugular venous distention. Trachea midline. No lymphadenopathy. Respiratory: Normal respiratory effort. Clear to auscultation, bilaterally without Rales/Wheezes/Rhonchi. Cardiovascular: Regular rate and rhythm with normal S1/S2 without murmurs, rubs or gallops. Abdomen: Soft, non-tender, non-distended with normal bowel sounds. No rebound or guarding. Musculoskeletal: No clubbing, cyanosis or edema bilaterally. Full range of motion without deformity, +2 peripheral pulses in all extremities. Skin: Skin color, texture, turgor normal. No rashes or lesions. Neurologic: Neurovascularly intact without any focal sensory/motor deficits. Cranial nerves: II-XII intact, grossly non-focal. Medications: sodium chloride, 75 mL/hr, Last Rate: 75 mL/hr (06/30/24 0958) amLODIPine, 5 mg, Oral, Daily buprenorphine, 2 patch, TransDERmal, Once cefTRIAXone, 1,000 mg, IntraVENous, q24h divalproex, 250 mg, Oral, TID WC DULoxetine, 60 mg, Oral, Daily furosemide, 20 mg, Oral, Daily heparin, 5,000 Units, SubCUTAneous, 2 times per day hydrALAZINE, 50 mg, Oral, TID influenza, 0.5 mL, IntraMUSCular, Prior to discharge lamoTRIgine, 200 mg, Oral, Nightly levothyroxine, 175 mcg, Oral, Daily metoprolol tartrate, 100 mg, Oral, BID pantoprazole, 40 mg, Oral, qAM AC risperiDONE, 6 mg, Oral, Nightly rosuvastatin, 10 mg, Oral, Daily tamsulosin, 0.4 mg, Oral, Daily traZODone, 200 mg, Oral, Nightly Assessment Acute metabolic encephalopathy. Urinary tract infection Mild hyponatremia. History of: Hypertension Hyperlipidemia Depression/anxiety Hypothyroidism Chronic kidney disease stage IIIb Chronic anemia. Plan: Confusion is improving, mental status close to baseline. Urine cultures are positive for E. coli more than 100,000 awaiting sensitivities Continuing ceftriaxone. Sodium levels dropped to 127-started on fluid restriction, nephrology consult placed Other home medications reviewed and resumed appropriately. PT OT evaluation Follow-up CBC BMP ordered DVT prophylaxis: Lovenox daily. Disposition: Possible discharge back to assisted living in next 1 to 2 days. 06/29-called patient's mother updated about patient's current condition and explained the plan. Also requested patient mother to bring home dose buprenorphine patch-as our pharmacy is not carrying patient's current dose -am labs, replace lytes prn -increase activity -DVT prophylaxis: [] Lovenox [] Heparin [] SCDs [x] Encourage ambulation [] Already on Anticoagulation Advance Directive: Full Code Discharge planning: TBD Tao Conte MD Division of Hospitalist Medicine Inpatient Medical Services/[facility] [facility]: [phone] Images from the original note were not included. OCCUPATIONAL THERAPY [facility] Treatment Note Name/MRN: Jessy Mckeon ([id number]) Date of : 1965 Age: 59 y.o. Room/Bed: B1-156/B1-156 A Visit #: 1 out of 7 visits Discharge Recommendation: Continue to assess pending progress, Home with Home health OT, Home with assist PRN Prior Level of Function Prior Level of ADL Function: Independent Prior Level of Mobility: Independent; Device: Rollator Prior Level of Transfers: Independent Assessment Pt tolerated session fair/poor and is making progress with OT POC. Pt completed bed mobility with SBA, toileting tasks with SBA-CGA, STS with CGA, toilet transfer with SBA, and functional mobility with CGA. Pt with difficulty attending to tasks, requires max cues throughout. Pt demo's some self limiting behaviors, she completes some tasks with increased encouragement. Pt is limited by impaired balance and endurance. Pt should benefit from skilled OT services in order to increase safety and independence in occupational participation. OT rec is [facility] OT with assist PRN pending pt progression with OT goals. Subjective Pt in bathroom upon arrival, pleasant and agreeable. Per RN, pt okay to see. Pain: Pt denies any current pain. Medical Precautions: No active isolations Proper PPE donned/doffed in accordance with facility standards. Fall Risk: [place] Fall Risk Score: 30 (Medium Risk) Precautions/Restrictions: N/A Family/Caregiver Present: none Objective ADLs Toileting: SBA, Contact Guard Pt completed toileting tasks at standard toilet with SBA, she completed seated pericare. CGA for clothing mgmt in standing. Bed Mobility Sit to supine: SBA Pt performed bed mobility from EOB to supine with SBA, VC's for initiation/sequencing of task with poor carry over. Increased time to complete. Denied dizziness with positional changes. Transfers/Mobility Sit to stand: Contact Guard Stand to sit: Contact Guard Toilet: SBA Functional mobility: Contact Guard Pt completed STS to/from EOB to FWW with CGA, VC's for hand placement for push up from/reach back to seated surface. Increased time to rise. SBA for transfer from standard toilet to FWW with use of L side grab bar. Pt performed short distance functional mobility within room with use of FWW with CGA. VC's for safety and device mgmt with poor carry over. Device(s) used: Front wheeled walker Cognition Exceptions - Following commands: follows one step commands with repetition - Attention span: attends with cues to redirect - Memory: decreased short term memory - Safety judgement: decreased awareness of need for assistance and decreased awareness of need for safety - Problem solving: assistance required to generate solutions, assistance required to implement solutions, assistance required to identify errors made, assistance required to correct errors made, and decreased awareness of errors - Insights: decreased awareness of deficits - Initiation: requires cues for some - Sequencing: requires cues for some Plan Continue acute OT per plan of care. Safety/Education Safety Safety Devices in place: All fall risk precautions in place, call light within reach, left in bed, bed alarm in place, gait belt, patient at risk for falls, nurse notified, and no alarms engaged upon entry Restraints: No Education Education Given To: patient Education Provided: OT Role, Plan of Care, ADL Adaptive Strategies, Transfer Training, Energy Conservation, Fall Prevention Education, Discharge Recommendations, and Benefits of Increasing Activity Education Method: Verbal, Demonstration, and Teach Back Barriers to Learning: Cognition Education Outcome: Verbalized Understanding, Demonstrated Understanding, and Continued Education Needed AM-PAC Goals Patient Stated Goal: to go to the bathroom Encounter Problems Encounter Problems (Active) Balance Patient will tolerate standing for 3 minutes mod I at fww to allow increased independence in ADLs. (Progressing) Start: 06/29/24 Expected End: 07/13/24 Dressing Upper Extremities Patient will complete upper body ADLs mod I. (Not Addressed) Start: 06/29/24 Expected End: 07/13/24 Dressings Lower Extremities Patient will complete lower body ADLs mod I. (Not Addressed) Start: 06/29/24 Expected End: 07/13/24 Mobility Patient will demonstrate functional ambulation mod I with fww. (Progressing) Start: 06/29/24 Expected End: 07/13/24 Toileting Patient will complete toileting tasks at standard toilet with modified independence. (Progressing) Start: 06/29/24 Expected End: 07/13/24 Transfers Patient will complete functional transfer with rolling walker with modified independence in order to prepare for ambulation. (Progressing) Start: 06/29/24 Expected End: 07/13/24 Therapy Time Individual Co-treatment Time In 1138 Time Out 1153 Minutes 15 Timed Code Treatment Minutes: 15 Minutes (1 ADL) ALAYNA Alvarez Cosigned by Shruti Hernandez OT at 07/01/2024 1:59 PM EST Nutrition rescreen complete. Pt assigned a level one for nutrition care. Images from the original note were not included. OCCUPATIONAL THERAPY [facility] Initial Evaluation Name/MRN: Jessy Mckeon ([id number]) Evaluation Date: 06/29/2024 Date of : 1965 Admission Date: 06/28/2024 11:15 AM Age: 59 y.o. Room/Bed: B1-156/B1-156 A Discharge Recommendation: Continue to assess pending progress, Home with Home health OT, Home with assist PRN Assessment IMPRESSION: Prior to admission, pt was independent in ADLs, functional transfers and mobility with no device. Pt now requires min A for ADLs, and CGA-SBA for functional transfers and mobility at fww. Pt is limited by impaired balance and endurance. Pt should benefit from skilled OT services in order to increase safety and independence in occupational participation. Admitting Diagnosis: Pt admitted 06/28 with urinary frequency and mild confusion. Found to have acute cystitis Prognosis: good Performance Deficits /Impairments: Increased Pain, Decreased Functional Mobility, Decreased Strength, Decreased Safety Awareness, Decreased Endurance, and Decreased Balance Decision Making: Medium Complexity Subjective Pt pleasant and cooperative. Per RN, ok for pt to participate in OT eval. PIV and infante intact. Pain: Pt denies any current pain. Past Medical History: Past Medical History: Diagnosis Date Acid reflux Anxiety Arthritis Asperger syndrome Bipolar disorder (HCC) Chronic kidney disease stage 4 kidney failure Chronic pain Depression Edema of both legs GERD (gastroesophageal reflux disease) Hemorrhoids Hyperlipidemia Hypertension Hypothyroidism Iron (Fe) deficiency anemia Nephrogenic diabetes insipidus (HCC) Pain management Retention of urine, unspecified Sciatica SOB (shortness of breath) GRANT Type II or unspecified type diabetes mellitus without mention of complication, not stated as uncontrolled ([facility]) Urinary incontinence nightly Past Surgical History: Past Surgical History: Procedure Laterality Date 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 CHOLECYSTECTOMY COLON SURGERY c-diff COLONOSCOPY 03/28/2018 no polyps UPPER GASTROINTESTINAL ENDOSCOPY 03/28/2018 Admission Diagnosis: Patient Active Problem List Diagnosis Date Noted Acute cystitis without hematuria 06/28/2024 Chronic renal disease, stage IV ([facility]) 06/20/2023 Chronic kidney disease, stage 3b ([facility]) 06/20/2023 Urinary tract infection without hematuria, site unspecified 03/17/2023 Urinary tract infection 03/16/2023 Depression 12/23/2021 Localized edema 01/11/2019 Schizoaffective disorder ([facility]/HCC) ([facility]) 06/05/2018 Suicidal ideations 05/22/2018 Chronic schizoaffective disorder ([facility]) 05/22/2018 Acute gastric ulcer without hemorrhage or perforation 03/28/2018 Diverticulosis of large intestine without diverticulitis 03/28/2018 Chronic antral gastritis 03/28/2018 First degree hemorrhoids 03/28/2018 Dyspnea 03/03/2018 Urinary retention 03/02/2018 Chest pain 02/14/2018 Hyponatremia 02/12/2018 Hypothyroidism 10/12/2017 Morbid obesity with BMI of 45.0-49.9, adult ([facility]) 10/12/2017 Hypomagnesemia 10/12/2017 JOSE A (acute kidney injury) ([facility]) 10/12/2017 Chronic bilateral low back pain with bilateral sciatica 10/12/2017 Psychogenic polydipsia 10/12/2017 Hypertension 10/12/2017 Bipolar disorder ([facility]) 10/12/2017 Iron (Fe) deficiency anemia 10/09/2017 Primary hypothyroidism 06/13/2017 Pneumonia 06/13/[address] 06/13/2017 Urge incontinence of urine 01/12/2017 Nocturia 10/15/2016 Urge incontinence 10/15/2016 Rotator cuff strain 11/03/2015 Osteoarthritis of patellofemoral joint 11/03/2015 Anxiety 04/03/2015 GERD (gastroesophageal reflux disease) 04/03/2015 Urinary incontinence 04/03/2015 Medical Precautions: No active isolations Proper PPE donned/doffed in accordance with facility standards. Fall Risk: Shel[place] Fall Risk Score: 30 (Medium Risk) Precautions/Restrictions: N/A Family/Caregiver Present: none Overall Cognitive Status: Exceptions - Following commands: follows one step commands with repetition - Attention span: attends with cues to redirect - Memory: decreased short term memory - Safety judgement: decreased awareness of need for assistance and decreased awareness of need for safety - Problem solving: assistance required to generate solutions, assistance required to implement solutions, assistance required to identify errors made, assistance required to correct errors made, and decreased awareness of errors - Insights: decreased awareness of deficits - Initiation: requires cues for some - Sequencing: requires cues for some Overall Orientation Status: Oriented x4 Social/Functional History Patient admitted from [facility]. Assistive Equipment: rollator Prior Level of Function Prior Level of ADL Function: Independent Prior Level of Mobility: Independent; Device: Rollator Prior Level of Transfers: Independent Objective ADLs Toileting: SBA, Min Assist, Pt required encouragement to complete pericare after toileting task to be as independent as possible. Pt able to complete moderate pericare with SBA, however, required min A for thoroughness. Pt completed with SBA for standing balance. UE Dressing: SBA, Min Assist, Pt required VC to complete UB dressing with encouragement. Pt able to doff soiled gown with SBA with assist for line management. Pt required min A to don fresh gown in regards to sleeve/line management. Upper Extremity Assessment AROM: generally decreased, functional Strength: generally decreased, functional Vision: wears glasses at all times and and are NOT being used during the eval Hearing: normal Bed Mobility Supine to sit: SBA Sit to supine: SBA Scooting: SBA HOB elevated with use of bed features and increased time to complete. Pt required assist for line management and VC for awareness d/t impulsivity. Denied dizziness with changes in positioning. Transfers/Functional Mobility Sit to stand: SBA, Contact Guard Stand to sit: SBA, Contact Guard Toilet: SBA Standing balance: SBA Functional mobility: SBA, Contact Guard Pt completed STS to/from EOB with fww and to/from toilet with gb at fww. Pt required VC for safe hand placement as pt attempted to hold onto fww during transfers, as well as VC for safety in regards to line management and impulsivity. Pt initially required CGA progressing to SBA. Pt completed pericare in standing ~2 min at fww with SBA d/t instability and fatigue but no true LOB noted. Pt initially ambulated to bathroom with CGA with increased instability d/t urgency, however, returned from bathroom to bed with SBA with increased stability and no LOB noted. Pt with VC and assist for line management throughout. Device(s) used: Front wheeled walker AM-PAC AM-PAC Inpatient Daily Activity Raw Score: 19 ADL Inpatient CMS G-Code Modifier: CK Plan Pt would benefit from skilled acute OT services to address Balance Training, Self-Care/ADL Training, Functional Mobility Training, Endurance Training, Safety Education and Training, Equipment Evaluation/Education, Home Management Training, Patient/Caregiver Training, and Cognitive/Perceptual Training. Frequency: 7 visits during current hospital admission or until additional recommendations are made Barriers: Impaired balance and Decreased endurance Safety/Education Safety Safety Devices in place: All fall risk precautions in place, call light within reach, left in bed, gait belt, patient at risk for falls, nurse notified, and no alarms engaged upon entry Restraints: No Education Education Given To: patient Education Provided: OT Role, Plan of Care, ADL Adaptive Strategies, Transfer Training, Equipment, Fall Prevention Education, Discharge Recommendations, and Benefits of Increasing Activity Education Method: Verbal Barriers to Learning: Cognition Education Outcome: Verbalized Understanding, Demonstrated Understanding, and Continued Education Needed Goals Patient Stated Goal: to go to the bathroom Encounter Problems Encounter Problems (Active) Balance Patient will tolerate standing for 3 minutes mod I at fww to allow increased independence in ADLs. Start: 06/29/24 Expected End: 07/13/24 Dressing Upper Extremities Patient will complete upper body ADLs mod I. Start: 06/29/24 Expected End: 07/13/24 Dressings Lower Extremities Patient will complete lower body ADLs mod I. Start: 06/29/24 Expected End: 07/13/24 Mobility Patient will demonstrate functional ambulation mod I with fww. Start: 06/29/24 Expected End: 07/13/24 Toileting Patient will complete toileting tasks at standard toilet with modified independence. Start: 06/29/24 Expected End: 07/13/24 Transfers Patient will complete functional transfer with rolling walker with modified independence in order to prepare for ambulation. Start: 06/29/24 Expected End: 07/13/24 Therapy Time Individual Co-treatment Time In 1310 Time Out 1334 Minutes 24 Timed Code Treatment Minutes: 9 Minutes (1 ADL) Marycruz Salvador OT Patient's Occupational Therapy Plan of Care supervision is transferred to a [facility] Therapy Services Occupational Therapist. Goals and/or treatment plan was established in collaboration with patient/family/other representatives. Hospitalist Progress Note 06/29/[id number]: Please page me ([phone]) for patient care issues. [phone]: Please page IMS night Hospitalist for any issues. Subjective: Admit Date: 06/28/2024 PCP: Edith Pierce MD Room#: B1-156/B1-156 A Interval History: No overnight issues. Denies chest pain, sob, abdominal pain, nausea, vomiting, diarrhea, constipation, fevers, or chills. Adult diet Regular @[id number]@ 24HR INTAKE/OUTPUT: Intake/Output Summary (Last 24 hours) at 06/29/2024 1331 Last data filed at 06/29/2024 0552 Gross per 24 hour Intake 523.75 ml Output 1850 ml Net -1326.25 ml Past Medical History: Past Medical History: Diagnosis Date Acid reflux Anxiety Arthritis Asperger syndrome Bipolar disorder (HCC) Chronic kidney disease stage 4 kidney failure Chronic pain Depression Edema of both legs GERD (gastroesophageal reflux disease) Hemorrhoids Hyperlipidemia Hypertension Hypothyroidism Iron (Fe) deficiency anemia Nephrogenic diabetes insipidus (HCC) Pain management Retention of urine, unspecified Sciatica SOB (shortness of breath) GRANT Type II or unspecified type diabetes mellitus without mention of complication, not stated as uncontrolled (HCC) Urinary incontinence nightly LABS: CBC: Recent Labs 06/28/24 1201 06/29/24 0101 WBC 10.0 6.7 RBC 2.86* 2.79* HGB 8.8* 8.6* HCT 27.8* 27.2* MCV 97.2 97.5 RDW 13.1 13.0 PLT 186 164 BMP: Recent Labs 06/28/24 1201 06/29/24 0101 NA 130* 130* K 3.9 3.7 CL 98 98 CO2 25 24 BUN 21* 20* CREATININE 3.23* 3.02* GLUCOSE 105* 120* CALCIUM 8.5 8.2* ANIONGAP 8 8 LIVER PROFILE: Recent Labs 06/28/24 1201 AST 18 ALT 8 BILITOT 0.5 ALKPHOS 80 PROT 6.9 PT/INR: No results for input(s): "PROTIME", "INR" in the last 72 hours. CARDIAC ENZYMES: Recent Labs 06/28/24 1201 TROPONINI <0.012 Procalcitonin: No results found for: "PROCAL" COVID-19 PCR: No results for input(s): "COVID19" in the last 72 hours. Objective: Vitals: BP 106/61 (BP Location: Left arm, Patient Position: Lying) Pulse 66 Temp 37.1 C (98.7 F) (Temporal) Resp 18 Wt 275 lb 9.6 oz (125 kg) SpO2 92% BMI 50.41 kg/m Pulse Ox: SpO2 Av.8 % Min: 92 % Max: 96 % Supplemental O2: General appearance: No apparent distress, appears stated age and cooperative with exam HEENT: Normal cephalic, atraumatic without obvious deformity. Pupils equal, round, and reactive to light. Extra ocular muscles intact. Conjunctivae/corneas clear. Neck: Supple, with full range of motion. No jugular venous distention. Trachea midline. No lymphadenopathy. Respiratory: Normal respiratory effort. Clear to auscultation, bilaterally without Rales/Wheezes/Rhonchi. Cardiovascular: Regular rate and rhythm with normal S1/S2 without murmurs, rubs or gallops. Abdomen: Soft, non-tender, non-distended with normal bowel sounds. No rebound or guarding. Musculoskeletal: No clubbing, cyanosis or edema bilaterally. Full range of motion without deformity, +2 peripheral pulses in all extremities. Skin: Skin color, texture, turgor normal. No rashes or lesions. Neurologic: Neurovascularly intact without any focal sensory/motor deficits. Cranial nerves: II-XII intact, grossly non-focal. Medications: sodium chloride, 75 mL/hr, Last Rate: 75 mL/hr (06/29/24 0511) amLODIPine, 5 mg, Oral, Daily buprenorphine, 2 patch, TransDERmal, Once cefTRIAXone, 1,000 mg, IntraVENous, q24h divalproex, 250 mg, Oral, TID WC DULoxetine, 60 mg, Oral, Daily furosemide, 20 mg, Oral, Daily heparin, 5,000 Units, SubCUTAneous, 2 times per day hydrALAZINE, 50 mg, Oral, TID influenza, 0.5 mL, IntraMUSCular, Prior to discharge lamoTRIgine, 200 mg, Oral, Nightly levothyroxine, 175 mcg, Oral, Daily metoprolol tartrate, 100 mg, Oral, BID pantoprazole, 40 mg, Oral, qAM AC risperiDONE, 6 mg, Oral, Nightly rosuvastatin, 10 mg, Oral, Daily tamsulosin, 0.4 mg, Oral, Daily traZODone, 200 mg, Oral, Nightly Assessment Acute metabolic encephalopathy. Urinary tract infection Mild hyponatremia. History of: Hypertension Hyperlipidemia Depression/anxiety Hypothyroidism Chronic kidney disease stage IIIb Chronic anemia. Plan: Confusion is improving, mental status close to baseline. Urine cultures are pending Continuing ceftriaxone. Monitor sodium levels with BMP. Other home medications reviewed and resumed appropriately. PT OT evaluation Follow-up CBC BMP ordered DVT prophylaxis: Lovenox daily. Disposition: Possible discharge back to assisted living in next 1 to 2 days. 06/29-called patient's mother updated about patient's current condition and explained the plan. Also requested patient mother to bring home dose buprenorphine patch-as our pharmacy is not carrying patient's current dose -am labs, replace lytes prn -increase activity -DVT prophylaxis: [] Lovenox [] Heparin [] SCDs [x] Encourage ambulation [] Already on Anticoagulation Advance Directive: Full Code Discharge planning: TBD Tao Conte MD Division of Hospitalist Medicine Inpatient Medical Services/[facility] [place] [facility]: [phone] Images from the original note were not included. PHYSICAL THERAPY [facility] Initial Evaluation Name/MRN: Jessy Mckeon ([id number]) Evaluation Date: 06/29/2024 Date of : 1965 Admission Date: 06/28/2024 11:15 AM Age: 59 y.o. Room/Bed: B1-156/B1-156 A Discharge Recommendation: Snf Facility, Continue to assess pending progress Equipment Needed: No Assessment IMPRESSION: Pt is a 59 y.o. female admitted 06/28 with urinary frequency and mild confusion. Found to have acute cystitis. Pt was previously independent with functional mobility with rollator. Pt is currently min-SBA for bed mobility, CGA for functional transfers and short distance ambulation with FWW. Pt is currently limited by endurance, fatigue and will benefit from acute skilled PT to address current deficits. Recommend SNF pending progress due to decreased activity tolerance. Admitting Diagnosis: admitted 06/28 with urinary frequency and mild confusion. Found to have acute cystitis Prognosis: good Performance Deficits /Impairments: Increased Pain, Decreased Functional Mobility, Decreased Strength, Decreased Safety Awareness, Decreased Endurance, and Decreased Balance Decision Making: Medium Complexity Subjective Pt pleasant and agreeable to therapy session Per RN milagro for therapy Pain: [place]-Tam Pain Ratin = Hurts a little bit Pain Location: shoulders Past Medical History: Past Medical History: Diagnosis Date Acid reflux Anxiety Arthritis Asperger syndrome Bipolar disorder ([facility]) Chronic kidney disease stage 4 kidney failure Chronic pain Depression Edema of both legs GERD (gastroesophageal reflux disease) Hemorrhoids Hyperlipidemia Hypertension Hypothyroidism Iron (Fe) deficiency anemia Nephrogenic diabetes insipidus ([facility]) Pain management Retention of urine, unspecified Sciatica SOB (shortness of breath) GRANT Type II or unspecified type diabetes mellitus without mention of complication, not stated as uncontrolled ([facility]) Urinary incontinence nightly Past Surgical History: Past Surgical History: Procedure Laterality Date 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 CHOLECYSTECTOMY COLON SURGERY c-diff COLONOSCOPY 03/28/2018 no polyps UPPER GASTROINTESTINAL ENDOSCOPY 03/28/2018 Admission Diagnosis: Patient Active Problem List Diagnosis Date Noted Acute cystitis without hematuria 06/28/2024 Chronic renal disease, stage IV ([facility]) 06/20/2023 Chronic kidney disease, stage 3b ([facility]) 06/20/2023 Urinary tract infection without hematuria, site unspecified 03/17/2023 Urinary tract infection 03/16/2023 Depression 12/23/2021 Localized edema 01/11/2019 Schizoaffective disorder (CMS/HCC) ([facility]) 06/05/2018 Suicidal ideations 05/22/2018 Chronic schizoaffective disorder (HCC) 05/22/2018 Acute gastric ulcer without hemorrhage or perforation 03/28/2018 Diverticulosis of large intestine without diverticulitis 03/28/2018 Chronic antral gastritis 03/28/2018 First degree hemorrhoids 03/28/2018 Dyspnea 03/03/2018 Urinary retention 03/02/2018 Chest pain 02/14/2018 Hyponatremia 02/12/2018 Hypothyroidism 10/12/2017 Morbid obesity with BMI of 45.0-49.9, adult ([facility]) 10/12/2017 Hypomagnesemia 10/12/2017 JOSE A (acute kidney injury) ([facility]) 10/12/2017 Chronic bilateral low back pain with bilateral sciatica 10/12/2017 Psychogenic polydipsia 10/12/2017 Hypertension 10/12/2017 Bipolar disorder ([facility]) 10/12/2017 Iron (Fe) deficiency anemia 10/09/2017 Primary hypothyroidism 06/13/2017 Pneumonia 06/13/[address] 06/13/2017 Urge incontinence of urine 01/12/2017 Nocturia 10/15/2016 Urge incontinence 10/15/2016 Rotator cuff strain 11/03/2015 Osteoarthritis of patellofemoral joint 11/03/2015 Anxiety 04/03/2015 GERD (gastroesophageal reflux disease) 04/03/2015 Urinary incontinence 04/03/2015 Medical Precautions: No active isolations Proper PPE donned/doffed in accordance with facility standards. Fall Risk: [place] Fall Risk Score: 30 (Medium Risk) Precautions/Restrictions: N/A Family/Caregiver Present: none Overall Cognitive Status: Exceptions - Following commands: follows one step commands with increased time and follows one step commands with repetition - Attention span: attends with cues to redirect - Safety judgement: decreased awareness of need for assistance and decreased awareness of need for safety - Problem solving: assistance required to generate solutions, assistance required to implement solutions, assistance required to identify errors made, assistance required to correct errors made, and decreased awareness of errors - Insights: decreased awareness of deficits - Initiation: requires cues for some - Sequencing: requires cues for some Overall Orientation Status: Oriented to Person Vision: wears glasses at all times and and are NOT being used during the eval Hearing: normal Social/Functional History Patient admitted from [facility]. Assistive Equipment: rollator Prior Level of Function Prior Level of ADL Function: Independent Prior Level of Mobility: Independent; Device: Rollator Prior Level of Transfers: Independent Objective Lower Extremity Assessment AROM: WFL Strength: Exceptions: decreased in BLE noted with functional mobility. Bed Mobility: Supine to sit: Min Assist Sit to supine: SBA Pt completes supine->sit requiring min A with ACADEMIC TUTOR to elevate trunk into upright sitting. Cues provided for sequencing. Pt returns to supine at SBA. Increased time and effort required to complete. Transfers Sit to stand: Contact Guard Stand to sit: Contact Guard Pt completes x2 sit<->stand from EOB and x2 from BSC. Pt requires cues for hand placement, safety as pt impulsive and attempts to stand while reaching hands for therapist. CGA provided throughout to monitor safety and stability. Completed with FWW. Ambulation Ambulation 1 Assistive device(s) used: Front wheeled walker Assist level: Contact Guard Distance (ft): ~5 feet x2 Quality of gait: No LOB, reciprocal stepping, instability through all phases Pt demos short, reciprocal gait pattern, decreased gait speed. Pt requires cues for slow and controlled movements as pt demos impulsivity and moves quickly with transitions. CGA provided throughout to monitor safety and stability. Pt declined to complete further ambulation due to fatigue. Balance During Session: Posture: fair Standing - Static: Contact Guard Standing - Dynamic: Contact Guard Pt completes static and dynamic standing balance for pericare with BUE on FWW requiring CGA to monitor safety and stability. Pt impulsively sits after ~1 minute due to fatigue. Outcome Measures AM-PAC How much HELP from another person do you currently need Turning from your back to your side while in a flat bed without using bedrails?: A Little Moving from lying on your back to sitting on the side of a flat bed without using bedrails?: A Little Moving to and from a bed to a chair (including a wheelchair)?: A Little Standing up from a chair using your arms (wheelchair or bedside chair)?: A Little Walking in a hospital room?: A Little Stair climbing assessed?: No AM-PAC Inpatient Mobility Raw Score (No Stairs) : 15 Plan Pt would benefit from skilled acute PT services to address Strengthening, Gait Training, Balance Training, Functional Mobility Training, Endurance Training, Safety Education and Training, Pain Management, Equipment Evaluation/Education, Cognitive Reorientation, Patient/Caregiver Training, and Positioning. Frequency: 5 visits during current hospital admission or until additional recommendations are made Barriers: Pain, Impaired balance, Lower extremity weakness, Decreased endurance, Limited safety awareness, and Impulsivity Safety/Education Safety Safety Devices in place: All fall risk precautions in place, call light within reach, left in bed, bed alarm in place, gait belt, patient at risk for falls, and nurse notified Restraints: N/A Education Education Given To: patient Education Provided: PT Role, PT Goals, Gait Training, Plan of Care, Transfer Training, Energy Conservation, Equipment, and Benefits of Increasing Activity Education Method: Verbal and Demonstration Barriers to Learning: Cognition Education Outcome: Verbalized Understanding, Demonstrated Understanding, and Continued Education Needed Goals Patient Stated Goal: Pt did not state Encounter Problems Encounter Problems (Active) Balance Patient will maintain dynamic standing balance for 3 minutes with modified independence in order to demonstrate decreased risk of falling. Start: 06/29/24 Expected End: 07/06/24 Patient will maintain static standing balance for 3 minutes with modified independence in order to demonstrate decreased risk of falling. Start: 06/29/24 Expected End: 07/06/24 Exercise Patient will complete lower extremity exercises for 1-2 sets / 5-10 reps in order to improve strength and activity tolerance for mobility. Start: 06/29/24 Expected End: 07/06/24 Mobility Patient will ambulate 100 feet with modified independence and rollator in order to improve safety and independence with mobility. Start: 06/29/24 Expected End: 07/06/24 Transfers Patient will perform bed mobility with modified independence in order to improve independence and prepare for out of bed mobility. Start: 06/29/24 Expected End: 07/06/24 Patient will complete functional transfer with rollator with modified independence in order to prepare for ambulation. Start: 06/29/24 Expected End: 07/06/24 Therapy Time Individual Co-treatment Time In 0956 Time Out 1017 Minutes 21 Deanne Dueñas PT Patient's Physical Therapy Plan of Care supervision is transferred to a [facility] Therapy Services Physical Therapist. Goals and/or treatment plan was established in collaboration with patient/family/other representatives. documented in this encounter [facility] 07-04-2024 Hospital Discharge instructions Justine Valentine LPN - 07/04/2024 12:41 PM EST Images from the original note were not included. Continuity of Care Form Patient Name: Jessy Mckeon : 1965 Admit date: 06/28/2024 Discharge date: 07-04-2024 Code Status Order: Full Code Advance Directives: N Admitting Physician: Estephania Gonzalez MD PCP: Edith Pierce MD Discharging Nurse: Justine Valentine L.P.N Discharging Hospital Unit/Room#: B1-156/B1-156 A Discharging Unit Emergency Contact: Extended Emergency Contact Information Primary Emergency Contact: Pita Jara Mobile Relation: Parent Preferred language: Northern Irish Mechanism Inspector needed? No Secondary Emergency Contact: Mamadou Jara Relation: Father Past Surgical History: Past Surgical History: Procedure Laterality Date 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 CHOLECYSTECTOMY COLON SURGERY c-diff COLONOSCOPY 03/28/2018 no polyps UPPER GASTROINTESTINAL ENDOSCOPY 03/28/2018 Immunization History: Immunization History Administered Date(s) Administered Covid-19, Pfizer Bearden Top, Do Not Dilute, (Age 12 Y+), Im, L 09/22/2021, 02/03/2022 Influenza, Unspecified 07/04/2020 Influenza, injectable, quadrivalent 06/20/2023 Pfizer SARS-CoV-2 Vaccination 12/05/2020, 12/26/2020 Pneumococcal Conjugate PCV 13 07/17/2018 Pneumococcal Polysaccharide PPSV23 08/31/2019 Tdap 12/04/2018 Active Problems: Medical Problems Problem List * (Principal) Acute cystitis without hematuria Urinary tract infection Urinary tract infection without hematuria, site unspecified Chronic renal disease, stage IV (HCC) Chronic kidney disease, stage 3b (HCC) Urge incontinence of urine Dyspnea Anxiety Schizoaffective disorder (CMS/HCC) (HCC) Chest pain Iron (Fe) deficiency anemia GERD (gastroesophageal reflux disease) Depression Suicidal ideations Acute gastric ulcer without hemorrhage or perforation Hypothyroidism Overview Signed 05/27/2022 2:10 PM by Interface, Incoming Problems- [facility] Conversion Dr esposito Urinary incontinence Diverticulosis of large intestine without diverticulitis Chronic antral gastritis First degree hemorrhoids Nocturia Rotator cuff strain Osteoarthritis of patellofemoral joint Urge incontinence Urinary retention Overview Signed 05/27/2022 2:10 PM by Interface, Incoming Problems- [facility] Conversion Updating Deprecated Diagnoses Localized edema Morbid obesity with BMI of 45.0-49.9, adult (HCC) Hypomagnesemia JOSE A (acute kidney injury) (HCC) Chronic bilateral low back pain with bilateral sciatica Primary hypothyroidism Psychogenic polydipsia Pneumonia Hyponatremia Hypertension Bipolar disorder (HCC) Lung infiltrate on CT Chronic schizoaffective disorder (HCC) Isolation/Infection: No active isolations No active infections Nurse Assessment: Last Vital Signs: BP 109/72 Pulse 64 Temp 36.8 C (98.2 F) (Temporal) Resp 17 Wt 125 kg (275 lb 9.6 oz) SpO2 97% BMI 50.41 kg/m Last documented pain score (0-10 scale): Last Weight: Wt Readings from Last 1 Encounters: 06/28/24 125 kg (275 lb 9.6 oz) Mental Status: IRASEMA Patient Mental Status: oriented and alert IV Access: IRASEMA IV Access: None Nursing Mobility/ADLs: Walking Minimal assistance Transfer Minimal assistance Bathing Minimal assistance Dressing Minimal assistance Toileting Minimal assistance Feeding Independent Automation And Controls Manager Minimal assistance Med Delivery no Wound Care Documentation and Therapy: Elimination: Continence: Bowel: no Bladder: no Urinary Catheter: None Colostomy/Ileostomy/Ileal Conduit: None Date of Last BM: 07-03-2024 Intake/Output Summary (Last 24 hours) at 07/04/2024 1235 Last data filed at 07/04/2024 0608 Gross per 24 hour Intake 1400 ml Output 2053 ml Net -653 ml I/O last 3 completed shifts: In: 2100 (16.8 mL/kg) [P.O.:2100] Out: 3953 (31.6 mL/kg) [Urine:3950 (0.9 mL/kg/hr); Stool:3] Weight: 125 kg Safety Concerns: at risk for falls Impairments/Disabilities: none Nutrition Therapy: Current Nutrition Therapy: Oral diet: general Routes of Feeding: none Liquids: no restrictions Daily Fluid Restriction: no Last Modified Barium Swallow with Video (Video Swallowing Test): not done Treatments at the Time of Hospital Discharge: Respiratory Treatments: N/A Oxygen Therapy: is not on home oxygen therapy. Ventilator: No ventilator support Rehab Therapies: physical therapy Weight Bearing Status/Restrictions: no restriction Other Medical Equipment (for information only, NOT a DME order): none Other Treatments: N/A Patient's personal belongings (please select all that are sent with patient): Patient has all her belongings RN SIGNATURE: MANAGEMENT/SOCIAL WORK SECTION Inpatient Status Date: Discharging to Facility/ Agency Name: [facility] Address: [address] [place] [address] [place] [address] Dialysis Facility (if applicable) Name: Address: Dialysis Schedule: Phone: Fax: Clinical Rehab Specialist/Egg Breaker signature: {E-signature:[id number]} PHYSICIAN SECTION Name: Jessy Mckeon Prognosis: {Rehab Prognosis:12306} Condition at Discharge: {Patient Condition:41531} Rehab Potential (if transferring to Rehab): {Rehab Prognosis:87717} Recommended Labs or Other Treatments After Discharge: The individual is being admitted to a nursing facility directly from an [facility] or a unit of a [facility] that is not operated by or licensed by [facility] under section 5119.14 or 5160-3-15.1 5 The individual requires the level of services provided by a nursing facility for the condition for which he or she was treated in the hospital and, Physician Certification: I certify the above information and transfer of Jessy Mckeon is necessary for the continuing treatment of the diagnosis listed and that she requires assisted living for greater than 30 days. Update Admission H&P: {IRASEMA Changes in H&P:27273} PHYSICIAN SIGNATURE: {E-signature:84431} documented in this encounter [facility] 07-04-2024 Note [facility] 07-04-2024 Hospital course Narrative Hospitalist Discharge Summary Jessy Mckeon : 1965 Admit date: 06/28/2024 Discharge date: 07/04/2024 Admitting Physician: Estephania Gonzalez MD Primary Care Physician: Edith Pierce MD Visit Status: admission. Code Status: Full Code Discharge Diagnoses: Acute metabolic encephalopathy Acute UTI Debility Diabetes insipidus Mild hyponatremia CKD stage 3 HTN HLD Depression and anxiety Hypothyroidism Chronic anemia Hospital Course: patient with acute metabolic encephalopathy in setting of acute UTI. She was treated with broad coverage abx, mentation improved, transitioned to PO keflex and completed abx course while in the hospital. UC growing out gale sensitive E coli. She has a history of diabetes insipidus and hyponatremia in setting of CKD stage 3, nephrology on consult, patient placed on fluid restrictions, stable sodium levels. Patient cleared by nephrology for discharge. Patient to follow up with PCP and primary nephrology outpatient in 1-2 weeks. BMP ordered for outpatient collection in 1 week. She is discharged to [facility] in improved and stable condition on 07/04/24. Consults: IP CONSULT TO NEPHROLOGY Discharge Instructions: Diet: Adult diet Regular Activity: as tolerated Recommended Outpatient Tests: Disposition: Patient discharged in stable condition to home. LABS: CBC: Recent Labs 07/02/24 0147 07/03/24 0123 07/04/24 0346 WBC 5.9 6.0 6.0 RBC 2.83* 2.84* 2.75* HGB 8.7* 8.7* 8.3* HCT 27.2* 27.4* 26.4* MCV 96.1 96.5 96.0 RDW 13.1 13.4 13.5 PLT 190 185 216 BMP: Recent Labs 07/02/24 0147 07/03/24 0123 07/04/24 0346 NA 131* 132* 129* K 4.4 4.6 4.4 CL 103 103 99 CO2 23 26 25 BUN 27* 32* 33* CREATININE 2.66* 2.81* 2.68* GLUCOSE 79 76 76 CALCIUM 8.4 8.4 8.8 ANIONGAP 6 2* 5 LIVER PROFILE:No results for input(s): "AST", "ALT", "BILITOT", "ALKPHOS", "PROT" in the last 72 hours. No lab exists for component: LABALBU PT/INR: No results for input(s): "PROTIME", "INR" in the last 72 hours. CARDIAC ENZYMES: No results for input(s): "TROPONINI" in the last 72 hours. Procalcitonin: No results found for: "PROCAL" COVID-19 PCR: No results for input(s): "COVID19" in the last 72 hours. Vitals: BP 109/72 Pulse 64 Temp 36.8 C (98.2 F) (Temporal) Resp 17 Wt 275 lb 9.6 oz (125 kg) SpO2 97% BMI 50.41 kg/m Pulse Ox: SpO2 Av.7 % Min: 96 % Max: 97 % Supplemental O2: General appearance: No apparent distress, appears stated age and cooperative with exam, obese female in NAD Respiratory: diminished BL, no wheezing. Cardiovascular: Regular rate and rhythm with no murmur Abdomen: Soft, non-tender, non-distended Skin: Skin color, texture, turgor normal. No rashes or lesions. Distal pulses intact in BL LE, no edema in BL LE. Neurologic: grossly non-focal. Discharge Medications: Medication List START taking these medications sennosides 8.6 MG tablet Commonly known as: Senokot Take 2 tablets (17.2 mg) by mouth 2 times daily. CHANGE how you take these medications risperiDONE 3 MG tablet Commonly known as: RisperDAL Take 2 tablets (6 mg) by mouth Nightly. What changed: Another medication with the same name was removed. Continue taking this medication, and follow the directions you see here. CONTINUE taking these medications amLODIPine 5 MG tablet Commonly known as: Norvasc take 1 tablet by mouth once daily Butrans 15 MCG/HR Generic drug: buprenorphine clonazePAM 0.5 MG tablet Commonly known as: KlonoPIN Take 1 tablet (0.5 mg) by mouth 2 times daily as needed for anxiety. divalproex 250 MG 24 hr tablet Commonly known as: Depakote ER Take 1 tablet (250 mg) by mouth in the morning and 1 tablet (250 mg) at noon and 1 tablet (250 mg) in the evening. Take with meals. DULoxetine [address] capsule Commonly known as: Cymbalta Take 1 capsule (60 mg) by mouth daily. Do not crush or chew. ergocalciferol 1.25 MG (00320 UT) capsule Commonly known as: Vitamin D-2 hydrALAZINE 50 MG tablet Commonly known as: Apresoline Take 1 tablet (50 mg) by mouth 3 times daily. lamoTRIgine 200 MG tablet Commonly known as: LaMICtal Take 1 tablet (200 mg) by mouth Nightly. levothyroxine 175 MCG tablet Commonly known as: Synthroid, Levoxyl metoprolol tartrate 100 MG tablet Commonly known as: Lopressor Take 1 tablet (100 mg) by mouth 2 times daily. omeprazole [address] capsule Commonly known as: PriLOSEC Take 1 capsule (40 mg) by mouth every morning (before breakfast). Do not crush or chew. rosuvastatin 10 MG tablet Commonly known as: Crestor TAKE 1 TABLET BY MOUTH DAILY tamsulosin 0.4 MG 24 hr capsule Commonly known as: Flomax Take 1 capsule (0.4 mg) by mouth daily. traZODone 100 MG tablet Commonly known as: Desyrel Take 2 tablets (200 mg) by mouth Nightly. STOP taking these medications furosemide 20 MG tablet Commonly known as: Lasix pantoprazole 40 MG EC tablet Commonly known as: ProtoNix ASK your doctor about these medications Depend Pant Extra Large misc 1 each in the morning and 1 each at noon and 1 each in the evening and 1 each before bedtime. Ask about: Should I take this medication? Where to Get Your Medications These medications were sent to [facility]/pharmacy #[id number] [address] sennosides 8.6 MG tablet Recommended Follow-up: PCP and primary group work program director outpatient in 1-2 weeks. @[email or web address]@ Complexity of Follow up: [] Moderate Complexity: follow up within 7-14 calendar days (86890) [x] Severe Complexity: follow up within 7 calendar days (02333) Follow up Testing, Pending results or Referrals at Transitional Care Visit: [x] yes [] no Instructions to MA: Please call patient on day after discharge (must document patient contacted within 2 business days of discharge). Follow up questions for MA: 1. Did you get medications filled and taking them as instructed from discharge? 2. Are you following your discharge instructions from your hospital stay? 3. Please confirm patient is scheduled for a follow up appointment within the above time frame. Signed: Sarah Gutierrez DO [facility] 07/04/2024, 12:35 PM Total time Spent on Discharge: 32 minutes documented in this encounter [facility] 07-04-2024 Note Formatting of this n ote might be different from the original. Care Management Progress Note Pt admitted for cystitis. IV antibiotics changed to PO Nephrology dc'd Fluid restriction UOP improved Cr down trending to 2.33 NA 129-130 PT/OT continue to follow Pt did refuse to participate this morning per Occupational & physical therapy note. Tcc received message by attending reporting pt cleared for dc. Tcc placed call to [place] Spoke larissa Awad pt's nurse who asked that that AVS be physically signed by the discharging MD. Their pharmacy will not acknowledge an electronically signed AVS. Tcc messaged Attending , Nursing to inform and ask that AVS when completed be printed and signed and dated by attending. Tcc also messaged social science manager for transportation and updated Address of AL on IRASEMA. Tcc then faxed H&P, MAR and consults to [phone]. Length of Stay (Days): 6 GMLOS: 3.8 [facility] 07-04-2024 Note Formatting of this n ote might be different from the original. Care Management Progress Note Pt admitted for cystitis. IV antibiotics changed to PO Nephrology dc'd Fluid restriction UOP improved Cr down trending to 2.33 NA 129-130 PT/OT continue to follow Pt did refuse to participate this morning per Occupational & physical therapy note. Tcc received message by attending reporting pt cleared for dc. Tcc placed call to [place] Spoke larissa Awad pt's nurse who asked that that AVS be physically signed by the discharging MD. Their pharmacy will not acknowledge an electronically signed AVS. Tcc messaged Attending , Nursing to inform and ask that AVS when completed be printed and signed and dated by attending. Tcc also messaged social science manager for transportation and updated Address of AL on IRASEMA. Tcc then faxed H&P, MAR and consults to [phone]. Length of Stay (Days): 6 GMLOS: 3.8 [facility] 07-04-2024 Miscellaneous Notes Care Management Progress Note Pt admitted for cystitis. IV antibiotics changed to PO Nephrology dc'd Fluid restriction UOP improved Cr down trending to 2.33 NA 129-130 PT/OT continue to follow Pt did refuse to participate this morning per Occupational & physical therapy note. Tcc received message by attending reporting pt cleared for dc. Tcc placed call to [place] Spoke larissa Awad pt's nurse who asked that that AVS be physically signed by the discharging MD. Their pharmacy will not acknowledge an electronically signed AVS. Tcc messaged Attending , Nursing to inform and ask that AVS when completed be printed and signed and dated by attending. Tcc also messaged social science manager for transportation and updated Address of AL on IRASEMA. Tcc then faxed H&P, MAR and consults to [phone]. Length of Stay (Days): 6 GMLOS: 3.8 Problem: Knowledge Deficit Goal: Patient/family/caregiver demonstrates understanding of disease process, treatment plan, medications, and discharge instructions Outcome: Progressing Problem: Potential for Compromised Skin Integrity Goal: Skin Integrity is Maintained or Improved Outcome: Progressing Problem: Urinary Incontinence Goal: Perineal skin integrity is maintained or improved Outcome: Progressing Care Management Progress Note Pt continues to be treated for acute cystitis and JOSE A. Nephrology following Bun/cr closely Fluid restriction in place removed this Am UOP > 6L per nephrology notes. NA at goal > 131(132) CR up trend from 2.66 to 2.81 PO Keflex for Cystitis. PT/OT continues to eval and treat Tcc had reviewed pt's ability to return with nursing [facility] at [place] / [place] 07/02/24 and will again this afternoon to determine anticipated dc date. DCP: return to [place] when stable. Length of Stay (Days): 5 GMLOS: 3.8 Problem: Knowledge Deficit Goal: Patient/family/caregiver demonstrates understanding of disease process, treatment plan, medications, and discharge instructions Outcome: Progressing Problem: Pain - Adult Goal: Verbalizes/displays adequate comfort level or baseline comfort level Outcome: Progressing Problem: Safety - Adult Goal: Free from fall injury Outcome: Progressing Care Management Progress Note Pt admitted with metabolic encephalopathy in setting of cystitis/UTI Iv antibiotics de escalated to PO Keflex Nephrology following for worsening renal function PT on fluid restriction [facility] Tcc [facility] [place] asking for an update and tentative return. Tcc informed Delmi that it did not appear to be today 2/2 renal function, However therapy progress notes from this AM were reviewed and per Delmi, as long as pt can stand with device, and does not require any lifting she can return. [facility] shared this w RN in AM rounds. Will update parents and continue to follow. DCP: Return to [place] when stable Length of Stay (Days): 4 GMLOS: No GMLOS Documented Care Managment Initial Assessment Date: 07/01/2024 Patient Name: Jessy Mckeon : 1965 Patient Information Source of Information: Patient Cognition/Language: WFL - Within Functional Limits Permission given to speak with patient high school admissions representative/caregiver as indicated: Confirmation of Payer with patient/family: Yes Payer Name: Medicare / [place] Medicaid : No Confirmation of Primary Care Physician: Confirmed PCP Name: Dr. Pierce Seen in last 2 years?: Yes Primary Caregiver: Other (Comment) (AL Staff) If assistance needed, confirmed caregiver ready, willing and able to care for patient at discharge: Yes Confirmed with: AL Staff Living Arrangements Current Residence: Number of Floors Number of Entry Steps: Bed/Bath Levels: Facility: Assisted Living Facility Name: [facility] Plan to Return: Yes Lives with: Alone Support Systems: Parent, Family members, Comments (Other) (AL Staff) Activities of Daily Living Ambulation: Assistance (rollator) Bathing/Dressing: Assistance Elimination/Continence/Toileting: Assistance (incontinent - wears depends) Feeding: Assistance (needs set up but can feed self) Who Assists with Activities of Daily Living: AL Staff Instrumental Activities of Daily Living Prescription Coverage: Yes [facility] Medication Management: Medication dispenser Who assists with medication securing and setup?: AL Staff Transportation/Shopping: Assistance Provider Transportation/Shopping Assistance Provider Name: Family Transportation Mode: Car, Payer provided transport service Needs Assistance with Transportation at Discharge: Comments (Might need transport assist, unsure at this time) Meal Preparation: Assistance Provider Meal Prep Assistance Provider Name: AL Staff Laundry/Cleaning: Assistance Provider Laundry/Cleaning Assistance Provider Name: AL Staff Finances/Bill Paying: Independent Communication: Independent Types of Care Services/Equipment Utilized Care Services: (n/a) Dialysis Type: NA Durable Medical Equipment: Rollator, Shower Seat Patient's Goal/Discharge Plan Patient expects to be discharged to: return to [facility] Discharge Planning Actions: Continue to follow Patient's Choice Rights and [employer] and Collaborative Relationships Disclosed as Indicated for Post-Acute Care: Interdisciplinary Team Engagement: Social Work Referral for: Transportation Assistance Additional Information: Spoke to patient at bedside. Introduced self and role. Assessment information taken from both conversation with patient and EPIC chart review. Clinical Update: remains on 1E for acute cystitis without hematuria. Confusion improving. Urine cultures positive for E. Coli. Continue ceftriaxone. Consults: IP CONSULT TO NEPHROLOGY PT/OT: OT rec home with HHC / PT rec SNF Current DCP: return to [facility] Discussed therapy recommendation of SNF. Patient refused, stating she has plenty of assistance at [facility]. Will need to confirm [facility] ability to accept back depending on most recent therapy evals prior to DC. As of 06/29 PT note, patient min-SBA for bed mobility, CGA for functional transfers and short distance ambulation with FWW. Placed "Therapy See Today" request for today or tomorrow AM to establish current assist level to confirm [facility] ability to accept. Expected Discharge, Rapid Rounding, and Discharge Milestones / Delays updated as appropriate. Discharge planning needs discussed. Patient denied any needs. Patient verbalizes understanding and is in agreement with POC. The time of this note does not reflect the actual time patient was seen and assessed but instead the time of this documentation. TCC will continue to follow. Cb Sharma RN documented in this encounter [facility] 07-04-2024 Plan of care note Problem: Knowledge Deficit Goal: Patient/family/caregiver demonstrates understanding of disease process, treatment plan, medications, and discharge instructions Outcome: Progressing Problem: Potential for Compromised Skin Integrity Goal: Skin Integrity is Maintained or Improved Outcome: Progressing Problem: Urinary Incontinence Goal: Perineal skin integrity is maintained or improved Outcome: Progressing [facility] 07-03-2024 Note Formatting of this n ote might be different from the original. Care Management Progress Note Pt continues to be treated for acute cystitis and JOSE A. Nephrology following Bun/cr closely Fluid restriction in place removed this Am UOP > 6L per nephrology notes. NA at goal > 131(132) CR up trend from 2.66 to 2.81 PO Keflex for Cystitis. PT/OT continues to eval and treat Tcc had reviewed pt's ability to return with nursing [facility] at [facility] 07/02/24 and will again this afternoon to determine anticipated dc date. DCP: return to [place] when stable. Length of Stay (Days): 5 GMLOS: 3.8 [facility] [employer] 07-03-2024 Note Formatting of this n ote might be different from the original. Care Management Progress Note Pt continues to be treated for acute cystitis and JOSE A. Nephrology following Bun/cr closely Fluid restriction in place removed this Am UOP > 6L per nephrology notes. NA at goal > 131(132) CR up trend from 2.66 to 2.81 PO Keflex for Cystitis. PT/OT continues to eval and treat Tcc had reviewed pt's ability to return with nursing [facility] at [facility] 07/02/24 and will again this afternoon to determine anticipated dc date. DCP: return to [place] when stable. Length of Stay (Days): 5 GMLOS: 3.8 [facility] [employer] 07-03-2024 Plan of care note Problem: Knowledge Deficit Goal: Patient/family/caregiver demonstrates understanding of disease process, treatment plan, medications, and discharge instructions Outcome: Progressing Problem: Pain - Adult Goal: Verbalizes/displays adequate comfort level or baseline comfort level Outcome: Progressing Problem: Safety - Adult Goal: Free from fall injury Outcome: Progressing [facility] 07-02-2024 Note Formatting of this n ote might be different from the original. Care Management Progress Note Pt admitted with metabolic encephalopathy in setting of cystitis/UTI Iv antibiotics de escalated to PO Keflex Nephrology following for worsening renal function PT on fluid restriction [facility] Tcc received call from Pt's AL [facility]/ [place] asking for an update and tentative return. Tcc informed Delmi that it did not appear to be today 2/2 renal function, However therapy progress notes from this AM were reviewed and per Delmi, as long as pt can stand with device, and does not require any lifting she can return. Tcc shared this w RN in AM rounds. Will update parents and continue to follow. DCP: Return to AL when stable Length of Stay (Days): 4 GMLOS: No GMLOS Documented [facility] [employer] 07-02-2024 Note Formatting of this n ote might be different from the original. Care Management Progress Note Pt admitted with metabolic encephalopathy in setting of cystitis/UTI Iv antibiotics de escalated to PO Keflex Nephrology following for worsening renal function PT on fluid restriction [facility] Tcc received call from Pt's [place] [facility]/ [place] asking for an update and tentative return. Tcc informed Delmi that it did not appear to be today 2/2 renal function, However therapy progress notes from this AM were reviewed and per Delim, as long as pt can stand with device, and does not require any lifting she can return. [facility] shared this w RN in AM rounds. Will update parents and continue to follow. DCP: Return to [place] when stable Length of Stay (Days): 4 GMLOS: No GMLOS Documented [facility] [employer] 07-01-2024 Note Formatting of this n ote might be different from the original. Care Managment Initial Assessment Date: 07/01/2024 Patient Name: Jessy Mckeon : 1965 Patient Information Source of Information: Patient Cognition/Language: WFL - Within Functional Limits Permission given to speak with patient high school admissions representative/caregiver as indicated: Confirmation of Payer with patient/family: Yes Payer Name: Medicare / [place] Medicaid : No Confirmation of Primary Care Physician: Confirmed PCP Name: Dr. Pierce Seen in last 2 years?: Yes Primary Caregiver: Other (Comment) (AL Staff) If assistance needed, confirmed caregiver ready, willing and able to care for patient at discharge: Yes Confirmed with: AL Staff Living Arrangements Current Residence: Number of Floors Number of Entry Steps: Bed/Bath Levels: Facility: Assisted Living Facility Name: [facility] Plan to Return: Yes Lives with: Alone Support Systems: Parent, Family members, Comments (Other) (AL Staff) Activities of Daily Living Ambulation: Assistance (rollator) Bathing/Dressing: Assistance Elimination/Continence/Toileting: Assistance (incontinent - wears depends) Feeding: Assistance (needs set up but can feed self) Who Assists with Activities of Daily Living: AL Staff Instrumental Activities of Daily Living Prescription Coverage: Yes [facility] Medication Management: Medication dispenser Who assists with medication securing and setup?: AL Staff Transportation/Shopping: Assistance Provider Transportation/Shopping Assistance Provider Name: Family Transportation Mode: Car, Payer provided transport service Needs Assistance with Transportation at Discharge: Comments (Might need transport assist, unsure at this time) Meal Preparation: Assistance Provider Meal Prep Assistance Provider Name: AL Staff Laundry/Cleaning: Assistance Provider Laundry/Cleaning Assistance Provider Name: AL Staff Finances/Bill Paying: Independent Communication: Independent Types of Care Services/Equipment Utilized Care Services: (n/a) Dialysis Type: NA Durable Medical Equipment: Rollator, Shower Seat Patient's Goal/Discharge Plan Patient expects to be discharged to: return to [facility] Discharge Planning Actions: Continue to follow Patient's Choice Rights and [employer] and Collaborative Relationships Disclosed as Indicated for Post-Acute Care: Interdisciplinary Team Engagement: Social Work Referral for: Transportation Assistance Additional Information: Spoke to patient at bedside. Introduced self and role. Assessment information taken from both conversation with patient and EPIC chart review. Clinical Update: remains on 1E for acute cystitis without hematuria. Confusion improving. Urine cultures positive for E. Coli. Continue ceftriaxone. Consults: IP CONSULT TO NEPHROLOGY PT/OT: OT rec home with HHC / PT rec SNF Current DCP: return to [facility] Discussed therapy recommendation of SNF. Patient refused, stating she has plenty of assistance at [facility]. Will need to confirm [facility] ability to accept back depending on most recent therapy evals prior to DC. As of 06/29 PT note, patient min-SBA for bed mobility, CGA for functional transfers and short distance ambulation with FWW. Placed "Therapy See Today" request for today or tomorrow AM to establish current assist level to confirm [facility]'s ability to accept. Expected Discharge, Rapid Rounding, and Discharge Milestones / Delays updated as appropriate. Discharge planning needs discussed. Patient denied any needs. Patient verbalizes understanding and is in agreement with POC. The time of this note does not reflect the actual time patient was seen and assessed but instead the time of this documentation. TCC will continue to follow. Cb Sharma RN [facility] 07-01-2024 Note Formatting of this n ote might be different from the original. Care Managment Initial Assessment Date: 07/01/2024 Patient Name: Jessy Mckeon : 1965 Patient Information Source of Information: Patient Cognition/Language: WFL - Within Functional Limits Permission given to speak with patient high school admissions representative/caregiver as indicated: Confirmation of Payer with patient/family: Yes Payer Name: Medicare / [place] Medicaid [place]: No Confirmation of Primary Care Physician: Confirmed PCP Name: Dr. Pierce Seen in last 2 years?: Yes Primary Caregiver: Other (Comment) (AL Staff) If assistance needed, confirmed caregiver ready, willing and able to care for patient at discharge: Yes Confirmed with: AL Staff Living Arrangements Current Residence: Number of Floors Number of Entry Steps: Bed/Bath Levels: Facility: Assisted Living Facility Name: [facility] Plan to Return: Yes Lives with: Alone Support Systems: Parent, Family members, Comments (Other) (AL Staff) Activities of Daily Living Ambulation: Assistance (rollator) Bathing/Dressing: Assistance Elimination/Continence/Toileting: Assistance (incontinent - wears depends) Feeding: Assistance (needs set up but can feed self) Who Assists with Activities of Daily Living: AL Staff Instrumental Activities of Daily Living Prescription Coverage: Yes [facility]acy Used[facility] Medication Management: Medication dispenser Who assists with medication securing and setup?: AL Staff Transportation/Shopping: Assistance Provider Transportation/Shopping Assistance Provider Name: Family Transportation Mode: Car, Payer provided transport service Needs Assistance with Transportation at Discharge: Comments (Might need transport assist, unsure at this time) Meal Preparation: Assistance Provider Meal Prep Assistance Provider Name: AL Staff Laundry/Cleaning: Assistance Provider Laundry/Cleaning Assistance Provider Name: AL Staff Finances/Bill Paying: Independent Communication: Independent Types of Care Services/Equipment Utilized Care Services: (n/a) Dialysis Type: NA Durable Medical Equipment: Rollator, Shower Seat Patient's Goal/Discharge Plan Patient expects to be discharged to: return to [facility] Discharge Planning Actions: Continue to follow Patient's Choice Rights and [employer] and Collaborative Relationships Disclosed as Indicated for Post-Acute Care: Interdisciplinary Team Engagement: Social Work Referral for: Transportation Assistance Additional Information: Spoke to patient at bedside. Introduced self and role. Assessment information taken from both conversation with patient and EPIC chart review. Clinical Update: remains on 1E for acute cystitis without hematuria. Confusion improving. Urine cultures positive for E. Coli. Continue ceftriaxone. Consults: IP CONSULT TO NEPHROLOGY PT/OT: OT rec home with HHC / PT rec SNF Current DCP: return to [facility] Discussed therapy recommendation of SNF. Patient refused, stating she has plenty of assistance at [facility]. Will need to confirm [facility] ability to accept back depending on most recent therapy evals prior to DC. As of 06/29 PT note, patient min-SBA for bed mobility, CGA for functional transfers and short distance ambulation with FWW. Placed "Therapy See Today" request for today or tomorrow AM to establish current assist level to confirm [facility] ability to accept. Expected Discharge, Rapid Rounding, and Discharge Milestones / Delays updated as appropriate. Discharge planning needs discussed. Patient denied any needs. Patient verbalizes understanding and is in agreement with POC. The time of this note does not reflect the actual time patient was seen and assessed but instead the time of this documentation. TCC will continue to follow. Cb Sharma RN [facility] [employer] 07-01-2024 Consult note Associated Order (s): IP CONSULT TO NEPHROLOGY Images from the original note were not included. Nephrology Consult Note Patient: Jessy Mckeon Room number: [id number] A Date of Admit: 06/28/2024 LOS: 3 days Referring physician: Tao Conte MD Outpatient Leach Cell Operator: Tomas Andre M.D. Reason for Consult Hyponatremia Chief complaint: urinary frequency, weakness and confusion Assessment / Plan Jessy Mckeon is a 59 y.o. 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 Admitted with UTI. Consulted for hyponatremia. Serum sodium was 130 on admission, and decreased to 127 yesterday. Serum osm was 283, urine sodium 13, and urine osm 116. TSH was 0.261. Hyponatremia in the past has been attributed to excess fluid intake. She also has a history of nephrogenic DI, picture also complicated with cymbalta on board. Per prior notes, her Na has historically fluctuated due to polyuria in context of nephrogenic DI and patient's thirst with psychogenic water drinking. 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 She also presented with JOSE A. Serum creat initially 3.23. Baseline serum creat is ~ 2.5 with frequent fluctuations. Suspect etiology of JOSE A is prerenal. Renal plan: 1-Non oliguric JOSE A: -last BUN was 24 and serum creat fluctuating at 2.84 -urine output 4.7 L yesterday, output so far 1.9 L today -improving, will continue to monitor 2-Hyponatremia: -serum sodium up to 132 today -given history of DI and large urine output, will remove fluid restriction and continue to observe, we can later add a less tight FR, goal Na >130. -will recheck BMP this evening and adjust FR accordingly 3-Other electrolytes/acid-base: -last K was 4.7 and Ca 8.2 -bicarb 23, stable 4-BP/volume status: -last BP 131/78 -on amlodipine 5 mg daily, lasix 20 mg daily, hydralazine 50 mg tid and metoprolol 100 mg bid -will watch output while on lasix, if too large might have to dc 5-Anemia: -last Hgb 8.4 -last ferritin 75 and tsat 22 in Apr -monitor -transfusions per primary team 6-ID: -on keflex -urine cx + for E. Coli Thank you for allowing us to participate in the care of this patient. Please call with any questions. Case discussed with primary team. Dr. Gamboa will be starting coverage tomorrow. Froy Bourne MD [facility] ([facility]) Office phone: [phone] Office fax: [phone] 07/01/2024 History of Present Illness Jessy Mckeon is a 59 y.o. 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 In the ED her temp was 98.7 HR 66 RR 18 BP 106/61 and O2sat 92% on RA. She was found to have a UTI and transferred to [facility]. She was started on ceftriaxone. A infante was placed because she couldn't urinate in the ED. We were consulted for hyponatremia. Patient complaints today of feeling thirsty. She denied any nausea, vomiting, chest pain or SOB. She reports some abdominal pain and a low appetite. She was started on lasix in Apr at the nephrology office to help with her edema and hyponatremia. Per ED notes, patient was having trouble making it to the bathroom and was having incontinence. Home Medications: reviewed. Past Medical History Acid reflux Anxiety Arthritis Asperger syndrome Bipolar disorder (HCC) Chronic kidney disease stage 4 kidney failure Chronic pain Depression Edema of both legs GERD (gastroesophageal reflux disease) Hemorrhoids Hyperlipidemia Hypertension Hypothyroidism Iron (Fe) deficiency anemia Nephrogenic diabetes insipidus (HCC) Pain management Retention of urine, unspecified Sciatica SOB (shortness of breath) GRANT Type II or unspecified type diabetes mellitus without mention of complication, not stated as uncontrolled (HCC) Urinary incontinence nightly Past Surgical History 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 CHOLECYSTECTOMY COLON SURGERY c-diff COLONOSCOPY 03/28/2018 no polyps UPPER GASTROINTESTINAL ENDOSCOPY 03/28/2018 Family History Hypertension Mother Cancer Father Colon cancer Maternal Grandmother Cancer Brother Social History Social History Socioeconomic History Marital status: Single Tobacco Use Smoking status: Former Smokeless tobacco: Never Vaping Use Vaping status: Never Used Substance and Sexual Activity Alcohol use: No Alcohol/week: 0.0 standard drinks of alcohol Drug use: No Social Drivers of Health Intimate Partner Violence: Not At Risk (03/17/2023) Humiliation, Afraid, Rape, and Kick questionnaire Fear of Current or Ex-Partner: No Emotionally Abused: No Physically Abused: No Sexually Abused: No Medications Scheduled Meds:amLODIPine, 5 mg, Oral, Daily buprenorphine, 2 patch, TransDERmal, Once cephalexin, 500 mg, Oral, TID divalproex, 250 mg, Oral, TID WC DULoxetine, 60 mg, Oral, Daily furosemide, 20 mg, Oral, Daily heparin, 5,000 Units, SubCUTAneous, 2 times per day hydrALAZINE, 50 mg, Oral, TID influenza, 0.5 mL, IntraMUSCular, Prior to discharge lamoTRIgine, 200 mg, Oral, Nightly levothyroxine, 175 mcg, Oral, Daily metoprolol tartrate, 100 mg, Oral, BID pantoprazole, 40 mg, Oral, qAM AC risperiDONE, 6 mg, Oral, Nightly rosuvastatin, 10 mg, Oral, Daily tamsulosin, 0.4 mg, Oral, Daily traZODone, 200 mg, Oral, Nightly Continuous Infusions: Allergies Allergies Allergen Reactions Benztropine Disorientation and loss of muscle control Diphenhydramine Disorientation Nsaids CKD Stage 3 Other Anticholinergics: cause disorientation and loss of muscle control Venlafaxine Hives Review of Systems All systems reviewed and neg except as above. Vital Signs Vitals: 06/30/24 0754 06/30/24 1945 07/01/24 0745 07/01/24 0901 BP: 129/65 119/64 124/56 131/78 BP Location: Left arm Left arm Patient Position: Sitting Sitting Pulse: 66 61 73 66 Resp: 16 18 Temp: 36.5 C (97.7 F) 36.9 C (98.4 F) 36.8 C (98.3 F) TempSrc: Temporal Temporal Temporal SpO2: 96% 95% 96% Weight: Wt Readings from Last 3 Encounters: 06/28/24 125 kg (275 lb 9.6 oz) 06/14/24 125 kg (276 lb) 09/04/23 111 kg (245 lb) Admit Wt: Weight: 125 kg (275 lb 9.6 oz) Estimated body mass index is 50.41 kg/m as calculated from the following: Height as of 06/20/23: 1.575 m (5' 2"). Weight as of this encounter: 125 kg (275 lb 9.6 oz). Intake/Output Summary (Last 24 hours) at 07/01/2024 1414 Last data filed at 07/01/2024 1100 Gross per 24 hour Intake -- Output 4700 ml Net -4700 ml Physical Exam General: awake and alert, NAD HEENT: Sclera clear, EOMI, MMM, Nose/ears/hearing grossly normal Neck: Supple, trachea midline, no mass Chest: Normal excusion Heart: RRR, no rub/heave Lungs: Clear bilaterally, unlabored Abd: Soft, (+) BS, non-tender, non distended Ext: No edema Neuro: No tremor/myoclonus Skin: warm and dry, no rash [facility] Labs reviewed. Recent Labs 06/29/24 01006/30/24 0528 07/01/24 0549 WBC 6.7 6.6 6.6 HGB 8.6* 7.4* 8.4* HCT 27.2* 24.2* 26.3* MCV 97.5 99.2* 97.8 PLT 164 147 178 Recent Labs 06/29/24 01006/30/24 0528 07/01/24 0549 NA 130* 127* 132* K 3.7 4.3 4.7 CL 98 101 103 CO2 24 22 23 BUN 20* 21* 24* CREATININE 3.02* 2.81* 2.84* GLUCOSE 120* 82 76 CALCIUM 8.2* 7.7* 8.2* ANIONGAP 8 4 6 Diagnostic Studies CXR 06/28 SUPPORT DEVICES: None OSSEOUS STRUCTURES: Unremarkable. HEART AND MEDIASTINUM: The cardiomediastinal silhouette appears unchanged from the prior exam. LUNGS AND PLEURA: The lungs are clear. No sizable pleural effusion. [facility] Phone: 07-01-2024 Consult note Associated Order (s): IP CONSULT TO NEPHROLOGY Images from the original note were not included. Nephrology Consult Note Patient: Jessy Mckeon Room number: [id number] A Date of Admit: 06/28/2024 LOS: 3 days Referring physician: Tao Conte MD Outpatient Leach Cell Operator: Tomas Andre M.D. Reason for Consult Hyponatremia Chief complaint: urinary frequency, weakness and confusion Assessment / Plan Jessy Mckeon is a 59 y.o. 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 Admitted with UTI. Consulted for hyponatremia. Serum sodium was 130 on admission, and decreased to 127 yesterday. Serum osm was 283, urine sodium 13, and urine osm 116. TSH was 0.261. Hyponatremia in the past has been attributed to excess fluid intake. She also has a history of nephrogenic DI, picture also complicated with cymbalta on board. Per prior notes, her Na has historically fluctuated due to polyuria in context of nephrogenic DI and patient's thirst with psychogenic water drinking. 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 She also presented with JOSE A. Serum creat initially 3.23. Baseline serum creat is ~ 2.5 with frequent fluctuations. Suspect etiology of JOSE A is prerenal. Renal plan: 1-Non oliguric JOSE A: -last BUN was 24 and serum creat fluctuating at 2.84 -urine output 4.7 L yesterday, output so far 1.9 L today -improving, will continue to monitor 2-Hyponatremia: -serum sodium up to 132 today -given history of DI and large urine output, will remove fluid restriction and continue to observe, we can later add a less tight FR, goal Na >130. -will recheck BMP this evening and adjust FR accordingly 3-Other electrolytes/acid-base: -last K was 4.7 and Ca 8.2 -bicarb 23, stable 4-BP/volume status: -last BP 131/78 -on amlodipine 5 mg daily, lasix 20 mg daily, hydralazine 50 mg tid and metoprolol 100 mg bid -will watch output while on lasix, if too large might have to dc 5-Anemia: -last Hgb 8.4 -last ferritin 75 and tsat 22 in Apr -monitor -transfusions per primary team 6-ID: -on keflex -urine cx + for E. Coli Thank you for allowing us to participate in the care of this patient. Please call with any questions. Case discussed with primary team. Dr. Gamboa will be starting coverage tomorrow. Froy Bourne MD [facility] ([facility]) Office phone: [phone] Office fax: [phone] 07/01/2024 History of Present Illness Jessy Mckeon is a 59 y.o. 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 In the ED her temp was 98.7 HR 66 RR 18 BP 106/61 and O2sat 92% on RA. She was found to have a UTI and transferred to [facility]. She was started on ceftriaxone. A infante was placed because she couldn't urinate in the ED. We were consulted for hyponatremia. Patient complaints today of feeling thirsty. She denied any nausea, vomiting, chest pain or SOB. She reports some abdominal pain and a low appetite. She was started on lasix in Apr at the nephrology office to help with her edema and hyponatremia. Per ED notes, patient was having trouble making it to the bathroom and was having incontinence. Home Medications: reviewed. Past Medical History Acid reflux Anxiety Arthritis Asperger syndrome Bipolar disorder (HCC) Chronic kidney disease stage 4 kidney failure Chronic pain Depression Edema of both legs GERD (gastroesophageal reflux disease) Hemorrhoids Hyperlipidemia Hypertension Hypothyroidism Iron (Fe) deficiency anemia Nephrogenic diabetes insipidus (HCC) Pain management Retention of urine, unspecified Sciatica SOB (shortness of breath) GRANT Type II or unspecified type diabetes mellitus without mention of complication, not stated as uncontrolled (HCC) Urinary incontinence nightly Past Surgical History 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 CHOLECYSTECTOMY COLON SURGERY c-diff COLONOSCOPY 03/28/2018 no polyps UPPER GASTROINTESTINAL ENDOSCOPY 03/28/2018 Family History Hypertension Mother Cancer Father Colon cancer Maternal Grandmother Cancer Brother Social History Social History Socioeconomic History Marital status: Single Tobacco Use Smoking status: Former Smokeless tobacco: Never Vaping Use Vaping status: Never Used Substance and Sexual Activity Alcohol use: No Alcohol/week: 0.0 standard drinks of alcohol Drug use: No Social Drivers of Health Intimate Partner Violence: Not At Risk (03/17/2023) Humiliation, Afraid, Rape, and Kick questionnaire Fear of Current or Ex-Partner: No Emotionally Abused: No Physically Abused: No Sexually Abused: No Medications Scheduled Meds:amLODIPine, 5 mg, Oral, Daily buprenorphine, 2 patch, TransDERmal, Once cephalexin, 500 mg, Oral, TID divalproex, 250 mg, Oral, TID WC DULoxetine, 60 mg, Oral, Daily furosemide, 20 mg, Oral, Daily heparin, 5,000 Units, SubCUTAneous, 2 times per day hydrALAZINE, 50 mg, Oral, TID influenza, 0.5 mL, IntraMUSCular, Prior to discharge lamoTRIgine, 200 mg, Oral, Nightly levothyroxine, 175 mcg, Oral, Daily metoprolol tartrate, 100 mg, Oral, BID pantoprazole, 40 mg, Oral, qAM AC risperiDONE, 6 mg, Oral, Nightly rosuvastatin, 10 mg, Oral, Daily tamsulosin, 0.4 mg, Oral, Daily traZODone, 200 mg, Oral, Nightly Continuous Infusions: Allergies Allergies Allergen Reactions Benztropine Disorientation and loss of muscle control Diphenhydramine Disorientation Nsaids CKD Stage 3 Other Anticholinergics: cause disorientation and loss of muscle control Venlafaxine Hives Review of Systems All systems reviewed and neg except as above. Vital Signs Vitals: 06/30/24 0754 06/30/24 1945 07/01/24 0745 07/01/24 0901 BP: 129/65 119/64 124/56 131/78 BP Location: Left arm Left arm Patient Position: Sitting Sitting Pulse: 66 61 73 66 Resp: 18 Temp: 36.5 C (97.7 F) 36.9 C (98.4 F) 36.8 C (98.3 F) TempSrc: Temporal Temporal Temporal SpO2: 96% 95% 96% Weight: Wt Readings from Last 3 Encounters: 06/28/24 125 kg (275 lb 9.6 oz) 06/14/24 125 kg (276 lb) 09/04/23 111 kg (245 lb) Admit Wt: Weight: 125 kg (275 lb 9.6 oz) Estimated body mass index is 50.41 kg/m as calculated from the following: Height as of 06/20/23: 1.575 m (5' 2"). Weight as of this encounter: 125 kg (275 lb 9.6 oz). Intake/Output Summary (Last 24 hours) at 07/01/2024 1414 Last data filed at 07/01/2024 1100 Gross per 24 hour Intake -- Output 4700 ml Net -4700 ml Physical Exam General: awake and alert, NAD HEENT: Sclera clear, EOMI, MMM, Nose/ears/hearing grossly normal Neck: Supple, trachea midline, no mass Chest: Normal excusion Heart: RRR, no rub/heave Lungs: Clear bilaterally, unlabored Abd: Soft, (+) BS, non-tender, non distended Ext: No edema Neuro: No tremor/myoclonus Skin: warm and dry, no rash [facility] Labs reviewed. Recent Labs 06/29/24 01006/30/24 0528 07/01/24 0549 WBC 6.7 6.6 6.6 HGB 8.6* 7.4* 8.4* HCT 27.2* 24.2* 26.3* MCV 97.5 99.2* 97.8 PLT 164 147 178 Recent Labs 06/29/24 01006/30/24 0528 07/01/24 0549 NA 130* 127* 132* K 3.7 4.3 4.7 CL 98 101 103 CO2 24 22 23 BUN 20* 21* 24* CREATININE 3.02* 2.81* 2.84* GLUCOSE 120* 82 76 CALCIUM 8.2* 7.7* 8.2* ANIONGAP 8 4 6 Diagnostic Studies CXR 06/28 SUPPORT DEVICES: None OSSEOUS STRUCTURES: Unremarkable. HEART AND MEDIASTINUM: The cardiomediastinal silhouette appears unchanged from the prior exam. LUNGS AND PLEURA: The lungs are clear. No sizable pleural effusion. documented in this encounter [facility] 06-28-2024 History and physical note Attending History and Physical Admit Date: 06/28/2024 PCP: Edith Pierce MD CHIEF COMPLAINT: Generalized weakness and increased urinary frequency with confusion Reason for Admission: Acute metabolic encephalopathy. Urinary tract infection History Obtained From: patient HISTORY OF PRESENT ILLNESS: Jessy is a 59 y.o. female with significant past medical history of chronic disease stage III, bipolar, gastroesophageal reflux disease, hypertension, hyperlipidemia, hypothyroidism, iron deficiency anemia, initially presented to [facility] emergency room from assisted living due to increased urinary frequency generalized weakness and on and off confusion episodes. Workup in the [facility] emergency room showed urinary tract infection, related decision was made to transfer to [facility] for further management. Patient denies any chest pain shortness of breath or palpitation, denies any abdominal pain nausea or vomitings No fever chills or rigors Patient received 1 dose of IV ceftriaxone in the [facility] emergency room, admitted to [facility] for further management. Past Medical History: Past Medical History: Diagnosis Date Acid reflux Anxiety Arthritis Asperger syndrome Bipolar disorder (HCC) Chronic kidney disease stage 4 kidney failure Chronic pain Depression Edema of both legs GERD (gastroesophageal reflux disease) Hemorrhoids Hyperlipidemia Hypertension Hypothyroidism Iron (Fe) deficiency anemia Nephrogenic diabetes insipidus (HCC) Pain management Retention of urine, unspecified Sciatica SOB (shortness of breath) GRANT Type II or unspecified type diabetes mellitus without mention of complication, not stated as uncontrolled (HCC) Urinary incontinence nightly Past Surgical History: Past Surgical History: Procedure Laterality Date 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 CHOLECYSTECTOMY COLON SURGERY c-diff COLONOSCOPY 03/28/2018 no polyps UPPER GASTROINTESTINAL ENDOSCOPY 03/28/2018 Social History: Social History Socioeconomic History Marital status: Single Spouse name: Not on file Number of children: Not on file Years of education: Not on file Highest education level: Not on file Occupational History Not on file Tobacco Use Smoking status: Former Smokeless tobacco: Never Vaping Use Vaping status: Never Used Substance and Sexual Activity Alcohol use: No Alcohol/week: 0.0 standard drinks of alcohol Drug use: No Sexual activity: Not on file Other Topics Concern Not on file Social History Narrative Not on file Social Drivers of Health Financial Resource Strain: Not on file Food Insecurity: Not on file Transportation Needs: Not on file Physical Activity: Not on file Stress: Not on file Social Connections: Not on file Intimate Partner Violence: Not At Risk (03/17/2023) Humiliation, Afraid, Rape, and Kick questionnaire Fear of Current or Ex-Partner: No Emotionally Abused: No Physically Abused: No Sexually Abused: No Housing Stability: Not on file Family History: Family History Problem Relation Name Age of Onset Hypertension Mother Cancer Father Colon cancer Maternal Grandmother Cancer Brother Medications Prior to Admission: No current facility-administered medications on file prior to encounter. Current Outpatient Medications on File Prior to Encounter Medication Sig Dispense Refill amLODIPine (Norvasc) 5 MG tablet take 1 tablet by mouth once daily 30 tablet 0 buprenorphine (Butrans) 15 MCG/HR Place 20 patches on the skin Once. clonazePAM (KlonoPIN) 0.5 MG tablet Take 1 tablet (0.5 mg) by mouth 2 times daily as needed for anxiety. 60 tablet 1 divalproex (Depakote ER) 250 MG 24 hr tablet Take 1 tablet (250 mg) by mouth in the morning and 1 tablet (250 mg) at noon and 1 tablet (250 mg) in the evening. Take with meals. 90 tablet 2 DULoxetine (Cymbalta) [address] capsule Take 1 capsule (60 mg) by mouth daily. Do not crush or chew. 30 capsule 3 ergocalciferol (Vitamin D-2) 1.25 MG (31335 UT) capsule Take 1.25 mg by mouth 1 (one) time per week. furosemide (Lasix) 20 MG tablet Take 20 mg by mouth daily. hydrALAZINE (Apresoline) 50 MG tablet Take 1 tablet (50 mg) by mouth 3 times daily. 90 tablet 11 [] Incontinence Supply Disposable (Depend Pant Extra Large) misc 1 each in the morning and 1 each at noon and 1 each in the evening and 1 each before bedtime. 120 each 11 lamoTRIgine (LaMICtal) 200 MG tablet Take 1 tablet (200 mg) by mouth Nightly. 30 tablet 3 levothyroxine (Synthroid, Levoxyl) 175 MCG tablet Take 175 mcg by mouth in the morning. metoprolol tartrate (Lopressor) 100 MG tablet Take 1 tablet (100 mg) by mouth 2 times daily. 60 tablet 3 omeprazole (PriLOSEC) [address] capsule Take 1 capsule (40 mg) by mouth every morning (before breakfast). Do not crush or chew. 90 capsule 1 pantoprazole (ProtoNix) 40 MG EC tablet Take 40 mg by mouth every morning (before breakfast). Do not crush, chew, or split. risperiDONE (RisperDAL) 3 MG tablet Take 1 tablet (3 mg) by mouth 2 times daily. Please take at lunchtime, and at bedtime 60 tablet 2 risperiDONE (RisperDAL) 3 MG tablet Take 2 tablets (6 mg) by mouth Nightly. 60 tablet 3 rosuvastatin (Crestor) 10 MG tablet TAKE 1 TABLET BY MOUTH DAILY 90 tablet 1 tamsulosin (Flomax) 0.4 MG 24 hr capsule Take 1 capsule (0.4 mg) by mouth daily. 30 capsule 11 traZODone (Desyrel) 100 MG tablet Take 2 tablets (200 mg) by mouth Nightly. 60 tablet 3 Allergies: Benztropine, Diphenhydramine, Nsaids, Other, and Venlafaxine REVIEW OF SYSTEMS: Constitutional: Negative for fever, chills, activity change and unexpected weight change. HEENT: Negative for congestion, postnasal drip and sneezing. Eyes: Negative for itching and visual disturbance. Respiratory: Negative for apnea, cough, choking, chest tightness, shortness of breath, wheezing and stridor. Cardiovascular: Negative for chest pain. Gastrointestinal: Negative for nausea, vomiting, abdominal pain, diarrhea and blood in stool. Genitourinary: Positive for increased urinary frequency Musculoskeletal: Negative for myalgias and joint swelling. Skin: Negative for rash. Neurological: Negative for dizziness, tremors, seizures, syncope, facial asymmetry, speech difficulty, weakness, numbness and headaches. Hematological: Negative for adenopathy. Psychiatric/Behavioral: Negative for suicidal ideas, behavioral problems, self-injury and dysphoric mood. Vitals: BP 92/66 (BP Location: Left arm, Patient Position: Lying) Pulse 60 Temp 36.8 C (98.2 F) (Temporal) Resp 15 Wt 275 lb 9.6 oz (125 kg) SpO2 96% BMI 50.41 kg/m BMI Classification: Obese (BMI 30.0-39.9) Pulse Ox: SpO2 Av % Min: 96 % Max: 96 % Supplemental O2: PHYSICAL EXAM: General appearance: No apparent distress, appears stated age and cooperative with exam. HEENT: Normal cephalic, atraumatic without obvious deformity. Pupils equal, round, and reactive to light. Extra ocular muscles intact. Conjunctivae/corneas clear. Neck: Supple, with full range of motion. No jugular venous distention. Trachea midline. No lymphadenopathy. Respiratory: Normal respiratory effort. Clear to auscultation, bilaterally without Rales/Wheezes/Rhonchi. Cardiovascular: Regular rate and rhythm with normal S1/S2 without murmurs, rubs or gallops. Abdomen: Soft, non-tender, non-distended with normal bowel sounds. No rebound or guarding. Musculoskeletal: No clubbing, cyanosis or edema bilaterally. Full range of motion without deformity, +2 peripheral pulses in all extremities. Skin: Skin color, texture, turgor normal. No rashes or lesions. Neurologic: Neurovascularly intact without any focal sensory/motor deficits. Cranial nerves: II-XII intact, grossly non-focal. Psychiatric: Alert and oriented, thought content appropriate, normal insight. DATA: CBC: Recent Labs 06/28/24 1201 WBC 10.0 RBC 2.86* HGB 8.8* HCT 27.8* MCV 97.2 RDW 13.1 PLT 186 BMP: Recent Labs 06/28/24 1201 NA 130* K 3.9 CL 98 CO2 25 BUN 21* CREATININE 3.23* GLUCOSE 105* CALCIUM 8.5 ANIONGAP 8 LIVER PROFILE: Recent Labs 06/28/24 1201 AST 18 ALT 8 BILITOT 0.5 ALKPHOS 80 PROT 6.9 PT/INR: No results for input(s): "PROTIME", "INR" in the last 72 hours. CARDIAC ENZYMES: Recent Labs 06/28/24 1201 TROPONINI <0.012 Procalcitonin: No results found for: "PROCAL" Urine Culture: Results for orders placed or performed during the hospital encounter of 03/16/23 Urine culture Collection Time: 03/16/23 6:17 PM Specimen: Urine, Clean Catch Result Value Ref Range Urine Culture >100,000 CFU/mL Klebsiella pneumoniae (A) Urine Culture (A) 50,000-90,000 CFU/mL Streptococcus anginosus (anginosus group) Susceptibility Klebsiella pneumoniae - BROTH MICRODILUTION Amoxicillin / Clavulanate <=2 Susceptible ug/ml Ampicillin >=32 Resistant ug/ml Ampicillin / Sulbactam 4 Susceptible ug/ml Aztreonam <=1 Susceptible ug/ml Cefazolin <=4 Susceptible ug/ml Cefepime <=1 Susceptible ug/ml Ceftriaxone <=1 Susceptible ug/ml Ciprofloxacin <=0.25 Susceptible ug/ml Gentamicin <=1 Susceptible ug/ml Meropenem <=0.25 Susceptible ug/ml Nitrofurantoin 64 Intermediate ug/ml Piperacillin / Tazobactam <=4 Susceptible ug/ml Trimethoprim / Sulfamethoxazole <=20 Susceptible ug/ml COVID-19 PCR: No results for input(s): "COVID19" in the last 72 hours. I reviewed: [x] laboratory results [x] radiographic results At the time of today's encounter. Pt was advised of the results. IMPRESSION: Acute metabolic encephalopathy. Urinary tract infection Mild hyponatremia. History of: Hypertension Hyperlipidemia Depression/anxiety Hypothyroidism Chronic kidney disease stage IIIb Chronic anemia. Plan: Confusion is improving, mental status close to baseline. Urine cultures are pending Continuing ceftriaxone. Monitor sodium levels with BMP. Other home medications reviewed and resumed appropriately. PT OT evaluation Follow-up CBC BMP ordered DVT prophylaxis: Lovenox daily. Disposition: Possible discharge back to assisted living in next 1 to 2 days. -PT/OT eval/increase activity -am labs, replace lytes prn -vitals per routine -home meds as ordered -DVT prophylaxis: [] Lovenox [] Heparin [] SCDs [x] Encourage ambulation [] Already on Anticoagulation -see below for additional orders, further recommendations to follow Orders Placed This Encounter Procedures SARS-CoV-2, Flu A/B, and RSV Combo Urine culture XR chest 1 view Ammonia Comprehensive metabolic panel Magnesium Troponin - One Time order ONLY CBC auto differential Urinalysis complete with reflex to Culture Complete Urinalysis CBC auto differential Basic Metabolic Panel w/ Mg Reflex Basic metabolic panel Adult diet Regular Vital Signs Notify patient's primary care provider of admission Activity No Restrictions Notify physician per STANDARD parameters Full code OT eval and treat PT eval and treat Initiate Oxygen Therapy Protocol POCT glucose meter ECG 12 lead Admit to inpatient Code status: Full Code Please forward a copy of this H&P to the patient's PCP. Thank you. Electronically signed by @MEMDNR@ on @TDNR@ at @NOWNR@ [facility] 06-28-2024 Note [facility] 06-28-2024 History and physical note Attending History and Physical Admit Date: 06/28/2024 PCP: Edith Pierce MD CHIEF COMPLAINT: Generalized weakness and increased urinary frequency with confusion Reason for Admission: Acute metabolic encephalopathy. Urinary tract infection History Obtained From: patient HISTORY OF PRESENT ILLNESS: Jessy is a 59 y.o. female with significant past medical history of chronic disease stage III, bipolar, gastroesophageal reflux disease, hypertension, hyperlipidemia, hypothyroidism, iron deficiency anemia, initially presented to [facility] emergency room from assisted living due to increased urinary frequency generalized weakness and on and off confusion episodes. Workup in the [facility] emergency room showed urinary tract infection, related decision was made to transfer to [facility] for further management. Patient denies any chest pain shortness of breath or palpitation, denies any abdominal pain nausea or vomitings No fever chills or rigors Patient received 1 dose of IV ceftriaxone in the [facility] emergency room, admitted to [facility] for further management. Past Medical History: Past Medical History: Diagnosis Date Acid reflux Anxiety Arthritis Asperger syndrome Bipolar disorder (HCC) Chronic kidney disease stage 4 kidney failure Chronic pain Depression Edema of both legs GERD (gastroesophageal reflux disease) Hemorrhoids Hyperlipidemia Hypertension Hypothyroidism Iron (Fe) deficiency anemia Nephrogenic diabetes insipidus (HCC) Pain management Retention of urine, unspecified Sciatica SOB (shortness of breath) GRANT Type II or unspecified type diabetes mellitus without mention of complication, not stated as uncontrolled (HCC) Urinary incontinence nightly Past Surgical History: Past Surgical History: Procedure Laterality Date 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 CHOLECYSTECTOMY COLON SURGERY c-diff COLONOSCOPY 03/28/2018 no polyps UPPER GASTROINTESTINAL ENDOSCOPY 03/28/2018 Social History: Social History Socioeconomic History Marital status: Single Spouse name: Not on file Number of children: Not on file Years of education: Not on file Highest education level: Not on file Occupational History Not on file Tobacco Use Smoking status: Former Smokeless tobacco: Never Vaping Use Vaping status: Never Used Substance and Sexual Activity Alcohol use: No Alcohol/week: 0.0 standard drinks of alcohol Drug use: No Sexual activity: Not on file Other Topics Concern Not on file Social History Narrative Not on file Social Drivers of Health Financial Resource Strain: Not on file Food Insecurity: Not on file Transportation Needs: Not on file Physical Activity: Not on file Stress: Not on file Social Connections: Not on file Intimate Partner Violence: Not At Risk (03/17/2023) Humiliation, Afraid, Rape, and Kick questionnaire Fear of Current or Ex-Partner: No Emotionally Abused: No Physically Abused: No Sexually Abused: No Housing Stability: Not on file Family History: Family History Problem Relation Name Age of Onset Hypertension Mother Cancer Father Colon cancer Maternal Grandmother Cancer Brother Medications Prior to Admission: No current facility-administered medications on file prior to encounter. Current Outpatient Medications on File Prior to Encounter Medication Sig Dispense Refill amLODIPine (Norvasc) 5 MG tablet take 1 tablet by mouth once daily 30 tablet 0 buprenorphine (Butrans) 15 MCG/HR Place 20 patches on the skin Once. clonazePAM (KlonoPIN) 0.5 MG tablet Take 1 tablet (0.5 mg) by mouth 2 times daily as needed for anxiety. 60 tablet 1 divalproex (Depakote ER) 250 MG 24 hr tablet Take 1 tablet (250 mg) by mouth in the morning and 1 tablet (250 mg) at noon and 1 tablet (250 mg) in the evening. Take with meals. 90 tablet 2 DULoxetine (Cymbalta) [address] capsule Take 1 capsule (60 mg) by mouth daily. Do not crush or chew. 30 capsule 3 ergocalciferol (Vitamin D-2) 1.25 MG (36467 UT) capsule Take 1.25 mg by mouth 1 (one) time per week. furosemide (Lasix) 20 MG tablet Take 20 mg by mouth daily. hydrALAZINE (Apresoline) 50 MG tablet Take 1 tablet (50 mg) by mouth 3 times daily. 90 tablet 11 [] Incontinence Supply Disposable (Depend Pant Extra Large) misc 1 each in the morning and 1 each at noon and 1 each in the evening and 1 each before bedtime. 120 each 11 lamoTRIgine (LaMICtal) 200 MG tablet Take 1 tablet (200 mg) by mouth Nightly. 30 tablet 3 levothyroxine (Synthroid, Levoxyl) 175 MCG tablet Take 175 mcg by mouth in the morning. metoprolol tartrate (Lopressor) 100 MG tablet Take 1 tablet (100 mg) by mouth 2 times daily. 60 tablet 3 omeprazole (PriLOSEC) [address] capsule Take 1 capsule (40 mg) by mouth every morning (before breakfast). Do not crush or chew. 90 capsule 1 pantoprazole (ProtoNix) 40 MG EC tablet Take 40 mg by mouth every morning (before breakfast). Do not crush, chew, or split. risperiDONE (RisperDAL) 3 MG tablet Take 1 tablet (3 mg) by mouth 2 times daily. Please take at lunchtime, and at bedtime 60 tablet 2 risperiDONE (RisperDAL) 3 MG tablet Take 2 tablets (6 mg) by mouth Nightly. 60 tablet 3 rosuvastatin (Crestor) 10 MG tablet TAKE 1 TABLET BY MOUTH DAILY 90 tablet 1 tamsulosin (Flomax) 0.4 MG 24 hr capsule Take 1 capsule (0.4 mg) by mouth daily. 30 capsule 11 traZODone (Desyrel) 100 MG tablet Take 2 tablets (200 mg) by mouth Nightly. 60 tablet 3 Allergies: Benztropine, Diphenhydramine, Nsaids, Other, and Venlafaxine REVIEW OF SYSTEMS: Constitutional: Negative for fever, chills, activity change and unexpected weight change. HEENT: Negative for congestion, postnasal drip and sneezing. Eyes: Negative for itching and visual disturbance. Respiratory: Negative for apnea, cough, choking, chest tightness, shortness of breath, wheezing and stridor. Cardiovascular: Negative for chest pain. Gastrointestinal: Negative for nausea, vomiting, abdominal pain, diarrhea and blood in stool. Genitourinary: Positive for increased urinary frequency Musculoskeletal: Negative for myalgias and joint swelling. Skin: Negative for rash. Neurological: Negative for dizziness, tremors, seizures, syncope, facial asymmetry, speech difficulty, weakness, numbness and headaches. Hematological: Negative for adenopathy. Psychiatric/Behavioral: Negative for suicidal ideas, behavioral problems, self-injury and dysphoric mood. Vitals: BP 92/66 (BP Location: Left arm, Patient Position: Lying) Pulse 60 Temp 36.8 C (98.2 F) (Temporal) Resp 15 Wt 275 lb 9.6 oz (125 kg) SpO2 96% BMI 50.41 kg/m BMI Classification: Obese (BMI 30.0-39.9) Pulse Ox: SpO2 Av % Min: 96 % Max: 96 % Supplemental O2: PHYSICAL EXAM: General appearance: No apparent distress, appears stated age and cooperative with exam. HEENT: Normal cephalic, atraumatic without obvious deformity. Pupils equal, round, and reactive to light. Extra ocular muscles intact. Conjunctivae/corneas clear. Neck: Supple, with full range of motion. No jugular venous distention. Trachea midline. No lymphadenopathy. Respiratory: Normal respiratory effort. Clear to auscultation, bilaterally without Rales/Wheezes/Rhonchi. Cardiovascular: Regular rate and rhythm with normal S1/S2 without murmurs, rubs or gallops. Abdomen: Soft, non-tender, non-distended with normal bowel sounds. No rebound or guarding. Musculoskeletal: No clubbing, cyanosis or edema bilaterally. Full range of motion without deformity, +2 peripheral pulses in all extremities. Skin: Skin color, texture, turgor normal. No rashes or lesions. Neurologic: Neurovascularly intact without any focal sensory/motor deficits. Cranial nerves: II-XII intact, grossly non-focal. Psychiatric: Alert and oriented, thought content appropriate, normal insight. DATA: CBC: Recent Labs 06/28/24 1201 WBC 10.0 RBC 2.86* HGB 8.8* HCT 27.8* MCV 97.2 RDW 13.1 PLT 186 BMP: Recent Labs 06/28/24 1201 NA 130* K 3.9 CL 98 CO2 25 BUN 21* CREATININE 3.23* GLUCOSE 105* CALCIUM 8.5 ANIONGAP 8 LIVER PROFILE: Recent Labs 06/28/24 1201 AST 18 ALT 8 BILITOT 0.5 ALKPHOS 80 PROT 6.9 PT/INR: No results for input(s): "PROTIME", "INR" in the last 72 hours. CARDIAC ENZYMES: Recent Labs 06/28/24 1201 TROPONINI <0.012 Procalcitonin: No results found for: "PROCAL" Urine Culture: Results for orders placed or performed during the hospital encounter of 03/16/23 Urine culture Collection Time: 03/16/23 6:17 PM Specimen: Urine, Clean Catch Result Value Ref Range Urine Culture >100,000 CFU/mL Klebsiella pneumoniae (A) Urine Culture (A) 50,000-90,000 CFU/mL Streptococcus anginosus (anginosus group) Susceptibility Klebsiella pneumoniae - BROTH MICRODILUTION Amoxicillin / Clavulanate <=2 Susceptible ug/ml Ampicillin >=32 Resistant ug/ml Ampicillin / Sulbactam 4 Susceptible ug/ml Aztreonam <=1 Susceptible ug/ml Cefazolin <=4 Susceptible ug/ml Cefepime <=1 Susceptible ug/ml Ceftriaxone <=1 Susceptible ug/ml Ciprofloxacin <=0.25 Susceptible ug/ml Gentamicin <=1 Susceptible ug/ml Meropenem <=0.25 Susceptible ug/ml Nitrofurantoin 64 Intermediate ug/ml Piperacillin / Tazobactam <=4 Susceptible ug/ml Trimethoprim / Sulfamethoxazole <=20 Susceptible ug/ml COVID-19 PCR: No results for input(s): "COVID19" in the last 72 hours. I reviewed: [x] laboratory results [x] radiographic results At the time of today's encounter. Pt was advised of the results. IMPRESSION: Acute metabolic encephalopathy. Urinary tract infection Mild hyponatremia. History of: Hypertension Hyperlipidemia Depression/anxiety Hypothyroidism Chronic kidney disease stage IIIb Chronic anemia. Plan: Confusion is improving, mental status close to baseline. Urine cultures are pending Continuing ceftriaxone. Monitor sodium levels with BMP. Other home medications reviewed and resumed appropriately. PT OT evaluation Follow-up CBC BMP ordered DVT prophylaxis: Lovenox daily. Disposition: Possible discharge back to assisted living in next 1 to 2 days. -PT/OT eval/increase activity -am labs, replace lytes prn -vitals per routine -home meds as ordered -DVT prophylaxis: [] Lovenox [] Heparin [] SCDs [x] Encourage ambulation [] Already on Anticoagulation -see below for additional orders, further recommendations to follow Orders Placed This Encounter Procedures SARS-CoV-2, Flu A/B, and RSV Combo Urine culture XR chest 1 view Ammonia Comprehensive metabolic panel Magnesium Troponin - One Time order ONLY CBC auto differential Urinalysis complete with reflex to Culture Complete Urinalysis CBC auto differential Basic Metabolic Panel w/ Mg Reflex Basic metabolic panel Adult diet Regular Vital Signs Notify patient's primary care provider of admission Activity No Restrictions Notify physician per STANDARD parameters Full code OT eval and treat PT eval and treat Initiate Oxygen Therapy Protocol POCT glucose meter ECG 12 lead Admit to inpatient Code status: Full Code Please forward a copy of this H&P to the patient's PCP. Thank you. Electronically signed by @MEMDNR@ on @TDNR@ at @NOWNR@ documented in this encounter [facility] 06-28-2024 Emergency department Note Report to IDALIA Mcconnell @ [facility]. [facility] 06-28-2024 Emergency department Note Report to IDALIA Mcconnell @ [facility]. Attempted report to [facility]. Nurse busy. Will call back for report Infante emptied of 900cc clear yellow urine. Report to [facility] ambulance crew. Pt transferred with clothing, purse and cell phone. Pt given kathy kun and macaroni and cheese meal. 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 Asking for water, for her cell phone, for extra blankets, to change the TV channel. Call light in reach, bedside table in reach, pt's cell phone on bedside table. Pt unable to urinate despite being on bedpan several times. States she wants a pure wick- advised pt we do not place those. Pt asking for infante catheter. Attempted IV x2 without success. Paramedics also tried IV without success. Labs obtained using butterfly needle. Dr. Duran notified. [facility] ED EMERGENCY DEPARTMENT ENCOUNTER Pt Name: Jessy Mckeon Birthdate 1965 Date of evaluation: 06/28/2024 Provider: Sarah Duran MD CHIEF COMPLAINT Chief Complaint Patient presents with Weakness, Gen HISTORY OF PRESENT ILLNESS I wore proper PPE for the entirety of this encounter. Jessy Mckeon is a 59 y.o. female who presents to the emergency department with feeling generally unwell and urinary frequency. Patient is that she is having trouble making it to the bathroom in time. Per EMS, patient was slightly confused at assisted living. She also complains of dizziness. Patient notes that she was recently started on Lasix. No chest pain, palpitations, headache, abdominal pain, nausea, vomiting. Nursing Notes were reviewed. REVIEW OF SYSTEMS As above PAST MEDICAL HISTORY Past Medical History: Diagnosis Date Acid reflux Anxiety Arthritis Asperger syndrome Bipolar disorder (HCC) Chronic kidney disease stage 4 kidney failure Chronic pain Depression Edema of both legs GERD (gastroesophageal reflux disease) Hemorrhoids Hyperlipidemia Hypertension Hypothyroidism Iron (Fe) deficiency anemia Nephrogenic diabetes insipidus (HCC) Pain management Retention of urine, unspecified Sciatica SOB (shortness of breath) GRANT Type II or unspecified type diabetes mellitus without mention of complication, not stated as uncontrolled (HCC) Urinary incontinence nightly SURGICAL HISTORY Past Surgical History: Procedure Laterality Date 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 CLONAZEPAM (KLONOPIN) 0.5 MG TABLET Take 1 tablet (0.5 mg) by mouth 2 times daily as needed for anxiety. DIVALPROEX (DEPAKOTE ER) 250 MG 24 HR TABLET Take 1 tablet (250 mg) by mouth in the morning and 1 tablet (250 mg) at noon and 1 tablet (250 mg) in the evening. Take with meals. DULOXETINE (CYMBALTA) [address] CAPSULE Take 1 capsule (60 mg) by mouth daily. Do not crush or chew. ERGOCALCIFEROL (VITAMIN D-2) 1.25 MG (60049 UT) CAPSULE Take 1.25 mg by mouth 1 (one) time per week. FUROSEMIDE (LASIX) 20 MG TABLET Take 20 mg by mouth daily. HYDRALAZINE (APRESOLINE) 50 MG TABLET Take 1 tablet (50 mg) by mouth 3 times daily. LAMOTRIGINE (LAMICTAL) 200 MG TABLET Take 1 tablet (200 mg) by mouth Nightly. LEVOTHYROXINE (SYNTHROID, LEVOXYL) 175 MCG TABLET Take 175 mcg by mouth in the morning. METOPROLOL TARTRATE (LOPRESSOR) 100 MG TABLET Take 1 tablet (100 mg) by mouth 2 times daily. OMEPRAZOLE (PRILOSEC) [address] CAPSULE Take 1 capsule (40 mg) by mouth every morning (before breakfast). Do not crush or chew. PANTOPRAZOLE (PROTONIX) 40 MG EC TABLET Take 40 mg by mouth every morning (before breakfast). Do not crush, chew, or split. RISPERIDONE (RISPERDAL) 3 MG TABLET Take 1 tablet (3 mg) by mouth 2 times daily. Please take at lunchtime, and at bedtime RISPERIDONE (RISPERDAL) 3 MG TABLET Take 2 tablets (6 mg) by mouth Nightly. ROSUVASTATIN (CRESTOR) 10 MG TABLET TAKE 1 TABLET BY MOUTH DAILY TAMSULOSIN (FLOMAX) 0.4 MG 24 HR CAPSULE Take 1 capsule (0.4 mg) by mouth daily. TRAZODONE (DESYREL) 100 MG TABLET Take 2 tablets (200 mg) by mouth Nightly. ALLERGIES Benztropine, Diphenhydramine, Nsaids, and Other FAMILY HISTORY Family History Problem Relation Name Age of Onset Hypertension Mother Cancer Father Colon cancer Maternal Grandmother Cancer Brother SOCIAL HISTORY Social History Socioeconomic History Marital status: Single Tobacco Use Smoking status: Former Smokeless tobacco: Never Vaping Use Vaping status: Never Used Substance and Sexual Activity Alcohol use: No Alcohol/week: 0.0 standard drinks of alcohol Drug use: No Social Drivers of Health Intimate Partner Violence: Not At Risk (03/17/2023) Humiliation, Afraid, Rape, and Kick questionnaire Fear of Current or Ex-Partner: No Emotionally Abused: No Physically Abused: No Sexually Abused: No SCREENINGS PHYSICAL EXAM ED Triage Vitals Temp Pulse Resp BP -- -- -- -- SpO2 Temp src Heart Rate Source Patient Position -- -- -- -- BP Location FiO2 (%) -- -- Constitutional: No acute distress HEENT:Head: Atraumatic Eyes: Conjunctivae normal. PERRLA, EOMI, visual velez full ENT: Mucous membranes moist. Normal oropharynx Neck: Normal ROM, supple CV: RRR, radial pulses equal RESP: CTAB, good respiratory effort, no increased wob GI: Abdomen soft, non-tender, non-distended, +BS, no guarding or rebound tenderness MSK: Normal bulk and tone, no gross deformity EXTR: Warm and well perfused, no edema SKIN: No rash/bruising/erythema PSYCH: Appropriate affect, cooperative behavior NEURO: Alert and oriented x 3, face symmetric, no slurred speech, CN2-12 intact, motor and sensory intact and equal bilaterally. No upper or lower extremity drift. Cerebellar (finger-nose, [id number]) normal. DIAGNOSTIC RESULTS Interpretation per the Radiologist below, if available at the time of this note: XR chest 1 view Final Result FINDINGS AND IMPRESSION: SUPPORT DEVICES: None OSSEOUS STRUCTURES: Unremarkable. HEART AND MEDIASTINUM: The cardiomediastinal silhouette appears unchanged from the prior exam. LUNGS AND PLEURA: The lungs are clear. No sizable pleural effusion. Report Dictated on Electronically Signed By: Tyler Guzman MD Electronically Signed Date/Time: 06/28/2024 12:35 PM EST LABS: Labs Reviewed COMPREHENSIVE METABOLIC PANEL - Abnormal Result Value SODIUM 130 (*) POTASSIUM 3.9 CHLORIDE 98 CARBON DIOXIDE 25 ANION GAP 8 UREA NITROGEN 21 (*) CREATININE 3.23 (*) GLUCOSE 105 (*) CALCIUM 8.5 AST (SGOT) 18 ALT 8 ALKALINE PHOSPHATASE 80 ALBUMIN 3.6 BILIRUBIN, TOTAL 0.5 TOTAL PROTEIN 6.9 eGFR 16.1 (*) CBC WITH AUTO DIFFERENTIAL - Abnormal Auto WBC 10.0 RBC 2.86 (*) Hemoglobin 8.8 (*) Hematocrit 27.8 (*) MCV 97.2 MCH 30.8 MCHC 31.7 RDW 13.1 Platelets 186 MPV 9.2 nRBC 0.0 Neutrophils Relative 67.0 Lymphocytes Relative 20.7 Monocytes Relative 10.8 Eosinophils Relative 1.0 Basophils Relative 0.3 Immature Grans % 0.2 Neutrophils Absolute 6.7 Lymphocytes Absolute 2.1 Monocytes Absolute 1.1 (*) Eosinophils Absolute 0.1 Basophils Absolute 0.0 Immature Grans Absolute 0.0 COMPLETE URINALYSIS - Abnormal Color, Urine Light Yellow Clarity, Urine Cloudy (*) pH, Urine 6.0 Leukocytes, Urine 500 (*) Nitrite, Urine Negative Protein, Urine 30 (*) Glucose, Urine Normal Bilirubin, Urine Negative Ketones, Urine Negative Urobilinogen, Urine Normal Blood, Urine Negative Volume, Urine 12 mL RBC, Urine 0-2 WBC, Urine 51-100 (*) Squamous Epithelial, Urine Negative Bacteria, Urine Many (*) SPECIFIC GRAVITY OF URINE (NUMERIC) 1.005 SARS-COV-2, FLU A/B, AND RSV COMBO - Normal SARS-CoV-2 Not Detected Respiratory Syncytial Virus Not Detected Influenza A Not Detected Influenza B Not Detected Narrative: Methodology: real-time, RT-PCR The SARS-CoV-2, Flu A/B, and RSV Combo assay is intended for in vitro diagnostic use under the FDA Emergency Use Authorization (EUA). This test has not been FDA cleared or approved. In compliance with this authorization, please visit www.fda.gov/media/504077/download or www.fda.gov/media/372800/download to access the applicable information sheets. AMMONIA - Normal AMMONIA 12 MAGNESIUM - Normal MAGNESIUM 2.2 TROPONIN I - Normal TROPONIN I <0.012 Narrative: Patients with high levels of Biotin oral intake (ie >5 mg/day) may have falsely decreased Troponin levels. URINE CULTURE COMPLETE URINALYSIS WITH REFLEX TO CULTURE Narrative: The following orders were created for panel order Urinalysis complete with reflex to Culture. Procedure Abnormality Status --------- ------ Complete Urinalysis[[id number]] Abnormal Final result Please view results for these tests on the individual orders. EMERGENCY DEPARTMENT COURSE and DIFFERENTIAL DIAGNOSIS/MDM: Vitals: Vitals: 06/28/24 1122 BP: 133/82 BP Location: Left arm Patient Position: Lying Pulse: 70 Resp: 16 Temp: 36.6 C (97.9 F) TempSrc: Oral SpO2: 96% Weight: 125 kg (275 lb 9.6 oz) Medications sodium chloride 0.9 % bolus 1,000 mL (0 mL IntraVENous Stopped 06/28/24 1346) cefTRIAXone (Rocephin) 1,000 mg in sodium chloride 0.9 % 50 mL IVPB Mini-Bag Plus (1,000 mg IntraVENous New Bag 06/28/24 1413) I personally saw the patient and performed a substantive portion of the visit including all aspects of the medical decision making. Patient appears nontoxic and vital signs are normal. NIHSS 0 on my exam. 1 L of IV fluids ordered for mild dehydration. CBC with no leukocytosis. Slightly worsened anemia with hemoglobin 8.8. Not requiring transfusion. CMP concerning for mild hyponatremia with sodium 130. Acute kidney injury with creatinine 3.23 and BUN of 21. This is slightly worsened than prior. Magnesium normal. Troponin normal. EKG without concerning ischemic or arrhythmic changes. Ammonia normal. Urinalysis concerning for UTI. Given ceftriaxone 1 g IV. Discussed with patient who still seems slightly confused situation. At this time, I do not believe patient is safe for discharge back to her assisted living center. Thus will admit the patient. I discussed test results and plan with the patient. I discussed with Dr. Martha Gonzalez who accepted the admission at [place]. ED Course as of 06/28/24 1445 Kayli Jun 28, 2024 1246 I placed a R AC US-guided PIV [LEIGH] 1247 XR chest 1 view CXR with no effusions, opacities, pneumothorax, pneumonia, heart failure with volume overload/pulmonary edema, displaced rib fracture, or large masses on my interpretation. No acute abnormalities on radiologist's final interpretation. [LEIGH] ED Course User Index [LEIGH] Sarah Duran MD Diagnoses as of 06/28/24 1445 Acute cystitis without hematuria Altered mental status, unspecified altered mental status type PROCEDURES: Unless otherwise noted below, none Procedures Patients symptoms are consistent with sepsis, severe sepsis, or septic shock (If yes use ".sepsiscoremeasure"): no FINAL IMPRESSION 1. Acute cystitis without hematuria 2. Altered mental status, unspecified altered mental status type DISPOSITION/PLAN Admit 06/28/2024 02:45:34 PM PATIENT REFERRED TO: No follow-up provider specified. DISCHARGE MEDICATIONS: New Prescriptions No medications on file (Please note: Portions of this note were completed with a voice recognition program. Efforts were made to edit the dictations but occasionally words and phrases are mis-transcribed.) Sarah Duran MD [facility] Emergency Medicine Physician [facility] Sarah Duran MD 06/28/24 1445 Pt to ER by collette from assisted living @ [facility]. Pt states she was recently started on Lasix. States she is having trouble making it to the bathroom and has been peeing herself. States on arrival that she wants a purewick. Pt advised we do not have purewicks at this time. Pt states she has chronic arthritis pain and general weakness. Pt alert and oriented x 4. Skin warm and dry. Respirations even and unlabored. Pt placed on bedpan per her request. Unable to urinate at this time. Pt very demanding of staff- vital signs are not yet completed and pt is asking for water, extra blankets, lights off, TV remote. Advised that we need to get her triage done , then we can take care of some of her requests. Side rails up x 2 for safety. Call light in reach. documented in this encounter [facility] 06-28-2024 Emergency department Note Attempted report to Sebastian Riley. Nurse busy. Will call back for report [facility] 06-28-2024 Emergency department Note Infante emptied of 900cc clear yellow urine. Report to [facility] ambulance crew. Pt transferred with clothing, purse and cell phone. [facility] 06-28-2024 Emergency department Note Pt given kathy kun and macaroni and cheese meal. 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 Asking for water, for her cell phone, for extra blankets, to change the TV channel. Call light in reach, bedside table in reach, pt's cell phone on bedside table. [facility] 06-28-2024 Emergency department Note Pt unable to urinate despite being on bedpan several times. States she wants a pure wick- advised pt we do not place those. Pt asking for infante catheter. [facility] 06-28-2024 Emergency department Note Attempted IV x2 without success. Paramedics also tried IV without success. Labs obtained using butterfly needle. Dr. Duran notified. [facility] 06-28-2024 Emergency department Triage note Pt to ER by collette from assisted living @ [facility]. Pt states she was recently started on Lasix. States she is having trouble making it to the bathroom and has been peeing herself. States on arrival that she wants a purewick. Pt advised we do not have purewicks at this time. Pt states she has chronic arthritis pain and general weakness. Pt alert and oriented x 4. Skin warm and dry. Respirations even and unlabored. Pt placed on bedpan per her request. Unable to urinate at this time. Pt very demanding of staff- vital signs are not yet completed and pt is asking for water, extra blankets, lights off, TV remote. Advised that we need to get her triage done , then we can take care of some of her requests. Side rails up x 2 for safety. Call light in reach. [facility] 06-28-2024 Physician Emergency department Note [facility] ED EMERGENCY DEPARTMENT ENCOUNTER Pt Name: Jessy Mckeon Birthdate 1965 Date of evaluation: 06/28/2024 Provider: Sarah Duran MD CHIEF COMPLAINT Chief Complaint Patient presents with Weakness, Gen HISTORY OF PRESENT ILLNESS I wore proper PPE for the entirety of this encounter. Jessy Mckeon is a 59 y.o. female who presents to the emergency department with feeling generally unwell and urinary frequency. Patient is that she is having trouble making it to the bathroom in time. Per EMS, patient was slightly confused at assisted living. She also complains of dizziness. Patient notes that she was recently started on Lasix. No chest pain, palpitations, headache, abdominal pain, nausea, vomiting. Nursing Notes were reviewed. REVIEW OF SYSTEMS As above PAST MEDICAL HISTORY Past Medical History: Diagnosis Date Acid reflux Anxiety Arthritis Asperger syndrome Bipolar disorder (HCC) Chronic kidney disease stage 4 kidney failure Chronic pain Depression Edema of both legs GERD (gastroesophageal reflux disease) Hemorrhoids Hyperlipidemia Hypertension Hypothyroidism Iron (Fe) deficiency anemia Nephrogenic diabetes insipidus (HCC) Pain management Retention of urine, unspecified Sciatica SOB (shortness of breath) GRANT Type II or unspecified type diabetes mellitus without mention of complication, not stated as uncontrolled (HCC) Urinary incontinence nightly SURGICAL HISTORY Past Surgical History: Procedure Laterality Date 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 CLONAZEPAM (KLONOPIN) 0.5 MG TABLET Take 1 tablet (0.5 mg) by mouth 2 times daily as needed for anxiety. DIVALPROEX (DEPAKOTE ER) 250 MG 24 HR TABLET Take 1 tablet (250 mg) by mouth in the morning and 1 tablet (250 mg) at noon and 1 tablet (250 mg) in the evening. Take with meals. DULOXETINE (CYMBALTA) [address] CAPSULE Take 1 capsule (60 mg) by mouth daily. Do not crush or chew. ERGOCALCIFEROL (VITAMIN D-2) 1.25 MG (32731 UT) CAPSULE Take 1.25 mg by mouth 1 (one) time per week. FUROSEMIDE (LASIX) 20 MG TABLET Take 20 mg by mouth daily. HYDRALAZINE (APRESOLINE) 50 MG TABLET Take 1 tablet (50 mg) by mouth 3 times daily. LAMOTRIGINE (LAMICTAL) 200 MG TABLET Take 1 tablet (200 mg) by mouth Nightly. LEVOTHYROXINE (SYNTHROID, LEVOXYL) 175 MCG TABLET Take 175 mcg by mouth in the morning. METOPROLOL TARTRATE (LOPRESSOR) 100 MG TABLET Take 1 tablet (100 mg) by mouth 2 times daily. OMEPRAZOLE (PRILOSEC) [address] CAPSULE Take 1 capsule (40 mg) by mouth every morning (before breakfast). Do not crush or chew. PANTOPRAZOLE (PROTONIX) 40 MG EC TABLET Take 40 mg by mouth every morning (before breakfast). Do not crush, chew, or split. RISPERIDONE (RISPERDAL) 3 MG TABLET Take 1 tablet (3 mg) by mouth 2 times daily. Please take at lunchtime, and at bedtime RISPERIDONE (RISPERDAL) 3 MG TABLET Take 2 tablets (6 mg) by mouth Nightly. ROSUVASTATIN (CRESTOR) 10 MG TABLET TAKE 1 TABLET BY MOUTH DAILY TAMSULOSIN (FLOMAX) 0.4 MG 24 HR CAPSULE Take 1 capsule (0.4 mg) by mouth daily. TRAZODONE (DESYREL) 100 MG TABLET Take 2 tablets (200 mg) by mouth Nightly. ALLERGIES Benztropine, Diphenhydramine, Nsaids, and Other FAMILY HISTORY Family History Problem Relation Name Age of Onset Hypertension Mother Cancer Father Colon cancer Maternal Grandmother Cancer Brother SOCIAL HISTORY Social History Socioeconomic History Marital status: Single Tobacco Use Smoking status: Former Smokeless tobacco: Never Vaping Use Vaping status: Never Used Substance and Sexual Activity Alcohol use: No Alcohol/week: 0.0 standard drinks of alcohol Drug use: No Social Drivers of Health Intimate Partner Violence: Not At Risk (03/17/2023) Humiliation, Afraid, Rape, and Kick questionnaire Fear of Current or Ex-Partner: No Emotionally Abused: No Physically Abused: No Sexually Abused: No SCREENINGS PHYSICAL EXAM ED Triage Vitals Temp Pulse Resp BP -- -- -- -- SpO2 Temp src Heart Rate Source Patient Position -- -- -- -- BP Location FiO2 (%) -- -- Constitutional: No acute distress HEENT:Head: Atraumatic Eyes: Conjunctivae normal. PERRLA, EOMI, visual velez full ENT: Mucous membranes moist. Normal oropharynx Neck: Normal ROM, supple CV: RRR, radial pulses equal RESP: CTAB, good respiratory effort, no increased wob GI: Abdomen soft, non-tender, non-distended, +BS, no guarding or rebound tenderness MSK: Normal bulk and tone, no gross deformity EXTR: Warm and well perfused, no edema SKIN: No rash/bruising/erythema PSYCH: Appropriate affect, cooperative behavior NEURO: Alert and oriented x 3, face symmetric, no slurred speech, CN2-12 intact, motor and sensory intact and equal bilaterally. No upper or lower extremity drift. Cerebellar (finger-nose, lcme-vo-carz) normal. DIAGNOSTIC RESULTS Interpretation per the Radiologist below, if available at the time of this note: XR chest 1 view Final Result FINDINGS AND IMPRESSION: SUPPORT DEVICES: None OSSEOUS STRUCTURES: Unremarkable. HEART AND MEDIASTINUM: The cardiomediastinal silhouette appears unchanged from the prior exam. LUNGS AND PLEURA: The lungs are clear. No sizable pleural effusion. Report Dictated on Electronically Signed By: Tyler Guzman MD Electronically Signed Date/Time: 06/28/2024 12:35 PM EST LABS: Labs Reviewed COMPREHENSIVE METABOLIC PANEL - Abnormal Result Value SODIUM 130 (*) POTASSIUM 3.9 CHLORIDE 98 CARBON DIOXIDE 25 ANION GAP 8 UREA NITROGEN 21 (*) CREATININE 3.23 (*) GLUCOSE 105 (*) CALCIUM 8.5 AST (SGOT) 18 ALT 8 ALKALINE PHOSPHATASE 80 ALBUMIN 3.6 BILIRUBIN, TOTAL 0.5 TOTAL PROTEIN 6.9 eGFR 16.1 (*) CBC WITH AUTO DIFFERENTIAL - Abnormal Auto WBC 10.0 RBC 2.86 (*) Hemoglobin 8.8 (*) Hematocrit 27.8 (*) MCV 97.2 MCH 30.8 MCHC 31.7 RDW 13.1 Platelets 186 MPV 9.2 nRBC 0.0 Neutrophils Relative 67.0 Lymphocytes Relative 20.7 Monocytes Relative 10.8 Eosinophils Relative 1.0 Basophils Relative 0.3 Immature Grans % 0.2 Neutrophils Absolute 6.7 Lymphocytes Absolute 2.1 Monocytes Absolute 1.1 (*) Eosinophils Absolute 0.1 Basophils Absolute 0.0 Immature Grans Absolute 0.0 COMPLETE URINALYSIS - Abnormal Color, Urine Light Yellow Clarity, Urine Cloudy (*) pH, Urine 6.0 Leukocytes, Urine 500 (*) Nitrite, Urine Negative Protein, Urine 30 (*) Glucose, Urine Normal Bilirubin, Urine Negative Ketones, Urine Negative Urobilinogen, Urine Normal Blood, Urine Negative Volume, Urine 12 mL RBC, Urine 0-2 WBC, Urine 51-100 (*) Squamous Epithelial, Urine Negative Bacteria, Urine Many (*) SPECIFIC GRAVITY OF URINE (NUMERIC) 1.005 SARS-COV-2, FLU A/B, AND RSV COMBO - Normal SARS-CoV-2 Not Detected Respiratory Syncytial Virus Not Detected Influenza A Not Detected Influenza B Not Detected Narrative: Methodology: real-time, RT-PCR The SARS-CoV-2, Flu A/B, and RSV Combo assay is intended for in vitro diagnostic use under the FDA Emergency Use Authorization (EUA). This test has not been FDA cleared or approved. In compliance with this authorization, please visit www.fda.gov/media/484142/download or www.fda.gov/media/099400/download to access the applicable information sheets. AMMONIA - Normal AMMONIA 12 MAGNESIUM - Normal MAGNESIUM 2.2 TROPONIN I - Normal TROPONIN I <0.012 Narrative: Patients with high levels of Biotin oral intake (ie >5 mg/day) may have falsely decreased Troponin levels. URINE CULTURE COMPLETE URINALYSIS WITH REFLEX TO CULTURE Narrative: The following orders were created for panel order Urinalysis complete with reflex to Culture. Procedure Abnormality Status --------- ------ Complete Urinalysis[[id number]] Abnormal Final result Please view results for these tests on the individual orders. EMERGENCY DEPARTMENT COURSE and DIFFERENTIAL DIAGNOSIS/MDM: Vitals: Vitals: 06/28/24 1122 BP: 133/82 BP Location: Left arm Patient Position: Lying Pulse: 70 Resp: 16 Temp: 36.6 C (97.9 F) TempSrc: Oral SpO2: 96% Weight: 125 kg (275 lb 9.6 oz) Medications sodium chloride 0.9 % bolus 1,000 mL (0 mL IntraVENous Stopped 06/28/24 1346) cefTRIAXone (Rocephin) 1,000 mg in sodium chloride 0.9 % 50 mL IVPB Mini-Bag Plus (1,000 mg IntraVENous New Bag 06/28/24 1413) I personally saw the patient and performed a substantive portion of the visit including all aspects of the medical decision making. Patient appears nontoxic and vital signs are normal. NIHSS 0 on my exam. 1 L of IV fluids ordered for mild dehydration. CBC with no leukocytosis. Slightly worsened anemia with hemoglobin 8.8. Not requiring transfusion. CMP concerning for mild hyponatremia with sodium 130. Acute kidney injury with creatinine 3.23 and BUN of 21. This is slightly worsened than prior. Magnesium normal. Troponin normal. EKG without concerning ischemic or arrhythmic changes. Ammonia normal. Urinalysis concerning for UTI. Given ceftriaxone 1 g IV. Discussed with patient who still seems slightly confused situation. At this time, I do not believe patient is safe for discharge back to her assisted living center. Thus will admit the patient. I discussed test results and plan with the patient. I discussed with Dr. Martha Gonzalez who accepted the admission at [place]. ED Course as of 06/28/24 1445 Kayli Jun 28, 2024 1246 I placed a R AC US-guided PIV [LEIGH] 1247 XR chest 1 view CXR with no effusions, opacities, pneumothorax, pneumonia, heart failure with volume overload/pulmonary edema, displaced rib fracture, or large masses on my interpretation. No acute abnormalities on radiologist's final interpretation. [LEIGH] ED Course User Index [LEIGH] Sarah Duran MD Diagnoses as of 06/28/24 1445 Acute cystitis without hematuria Altered mental status, unspecified altered mental status type PROCEDURES: Unless otherwise noted below, none Procedures Patients symptoms are consistent with sepsis, severe sepsis, or septic shock (If yes use ".sepsiscoremeasure"): no FINAL IMPRESSION 1. Acute cystitis without hematuria 2. Altered mental status, unspecified altered mental status type DISPOSITION/PLAN Admit 06/28/2024 02:45:34 PM PATIENT REFERRED TO: No follow-up provider specified. DISCHARGE MEDICATIONS: New Prescriptions No medications on file (Please note: Portions of this note were completed with a voice recognition program. Efforts were made to edit the dictations but occasionally words and phrases are mis-transcribed.) Sarah Duran MD [facility] Emergency Medicine Physician [facility] Sarah Duran MD 06/28/24 1445 [facility] 06-14-2024 History of Present illness Narrative Reason for consultation: Anemia associated with stage IV chronic kidney disease with baseline hemoglobin 9-10. Referred by provider at correction. HPI: 59-year-old female referred by her provider at [facility] with ongoing anemia in the setting of chronic kidney disease. She does follow with Dr. Andre in nephrology for stage IV chronic kidney disease. Her most recent creatinine was 2.45. Appears that her hemoglobin has been ranging from 9-10.5 for the past 1 to 2 years. Most recent ferritin level 75 from last month. She denies bleeding signs or symptoms. She is living in a correction due to her multiple mental illnesses including bipolar, Asperger's syndrome. Other PMHx Bipolar Asperger syndrome GERD HTN CKD, stage IV Left thumb surgery Hypothyroid DLD Urinary incontinence Social History Social History Tobacco Use Smoking status: Former Smokeless tobacco: Never Substance Use Topics Alcohol use: No Alcohol/week: 0.0 standard drinks of alcohol Drug use: No Family History Family History Problem Relation Name Age of Onset Hypertension Mother Cancer Father Colon cancer Maternal Grandmother Cancer Brother Father - lung ca PGF - lung ca Allergies Allergies Allergen Reactions Benztropine Disorientation and loss of muscle control Diphenhydramine Disorientation Nsaids CKD Stage 3 Other Anticholinergics: cause disorientation and loss of muscle control Medications Current Outpatient Medications Medication Sig Dispense Refill amLODIPine (Norvasc) 5 MG tablet take 1 tablet by mouth once daily 30 tablet 0 buprenorphine (Butrans) 15 MCG/HR Place 20 patches on the skin Once. clonazePAM (KlonoPIN) 0.5 MG tablet Take 1 tablet (0.5 mg) by mouth 2 times daily as needed for anxiety. Do not start before December 16, 2023. 60 tablet 1 divalproex (Depakote ER) 250 MG 24 hr tablet Take 1 tablet (250 mg) by mouth in the morning and 1 tablet (250 mg) at noon and 1 tablet (250 mg) in the evening. Take with meals. 90 tablet 2 DULoxetine (Cymbalta) [address] capsule TAKE 1 CAPSULE BY MOUTH DAILY 30 capsule 10 hydrALAZINE (Apresoline) 50 MG tablet Take 1 tablet (50 mg) by mouth 3 times daily. 90 tablet 11 Incontinence Supply Disposable (Depend Pant Extra Large) misc 1 each in the morning and 1 each at noon and 1 each in the evening and 1 each before bedtime. 120 each 11 lamoTRIgine (LaMICtal) 200 MG tablet TAKE 1 TABLET BY MOUTH NIGHTLY 30 tablet 10 levothyroxine (Synthroid, Levoxyl) 175 MCG tablet Take 175 mcg by mouth in the morning. metoprolol tartrate (Lopressor) 100 MG tablet Take 1 tablet (100 mg) by mouth 2 times daily. 60 tablet 3 omeprazole (PriLOSEC) [address] capsule Take 1 capsule (40 mg) by mouth every morning (before breakfast). Do not crush or chew. 90 capsule 1 risperiDONE (RisperDAL) 3 MG tablet Take 1 tablet (3 mg) by mouth 2 times daily. Please take at lunchtime, and at bedtime 60 tablet 2 risperiDONE (RisperDAL) 3 MG tablet Take 2 tablets (6 mg) by mouth Nightly. 60 tablet 3 rosuvastatin (Crestor) 10 MG tablet TAKE 1 TABLET BY MOUTH DAILY 90 tablet 1 tamsulosin (Flomax) 0.4 MG 24 hr capsule Take 1 capsule (0.4 mg) by mouth daily. 30 capsule 11 traZODone (Desyrel) 100 MG tablet Take 2 tablets (200 mg) by mouth Nightly. 60 tablet 3 No current facility-administered medications for this visit. Physical Exam: Vitals reviewed Alert, NAD, ecog 1-2 Imaging/Labs: Lab Results Component Value Date WBC 5.1 09/04/2023 HGB 10.4 (L) 04/17/2024 HCT 30.9 (L) 04/17/2024 MCV 91.8 09/04/2023 PLT 225 09/04/2023 Lab Results Component Value Date GLUCOSE 113 (H) 04/17/2024 CALCIUM 9.1 04/17/2024 NA 131 (L) 04/17/2024 K 3.9 04/17/2024 CO2 25 04/17/2024 CL 99 04/17/2024 BUN 16 04/17/2024 CREATININE 2.45 (H) 04/17/2024 Lab Results Component Value Date ALT 7 08/25/2023 AST 23 08/25/2023 ALKPHOS 80 08/25/2023 BILITOT 0.4 08/25/2023 Lab Results Component Value Date IRON 53 04/17/2024 TIBC 244 (L) 04/17/2024 FERRITIN 75 04/17/2024 Assessment/Plan: 59 y.o. with Anemia associated with stage IV chronic kidney disease with baseline hemoglobin 9-10. Referred by provider at correction. Anemia expected in patients who have underlying chronic kidney disease and is typically managed through nephrology provider. Occasionally, patients may be prescribed erythropoietin supplementation if they develop worsening symptomatic severe anemia with goal hemoglobin of 9-10 (at goal level currently). Recent ferritin level adequate and will defer iron supplementation if indicated to nephrology team. Can continue to follow-up with primary care team, psychiatry, and nephrology. I am available should questions or concerns arise There are no other issues with medication compliance, stressors, depression, side effects of therapy other than as noted above. Discussion congruent with NCCN guidelines if applicable. 35 minutes in care coordination/counseling documented in this encounter [facility] 05-17-2024 Telephone encounter Note Phone call to patient. No answer, mailbox full. [facility] 05-17-2024 Miscellaneous Notes Phone call to patient. No answer, mailbox full. Phone call to [facility]. Asked if and when supplies have been sent out. Order for supplies faxed 04/30. Confirmation of receipt in media. They don't have it uploaded as of yet. Recommend re faxing. Estimate a week until supplies sent out. Order form re faxed. Phone call to number given. Female that answered states patient is at home now. Does not live there anymore. Called home number. No answer, voice mailbox is full. Name of caller: Pita Contact phone number: [phone] Relationship to Patient: Mother Provider: Dr Green Practice: [facility] Chief Complaint/Reason for Call: Pt states she is out in incontinence supplies and needs an order placed. Pt would like to know how long the order will take Best time of day caller can be reached: Any Patient advised that office/PCP has 24-48 business hours to return their call: Yes documented in this encounter [facility] 05-17-2024 Telephone encounter Note Phone call to [facility]. Asked if and when supplies have been sent out. Order for supplies faxed 04/30. Confirmation of receipt in media. They don't have it uploaded as of yet. Recommend re faxing. Estimate a week until supplies sent out. Order form re faxed. [facility] 05-15-2024 Telephone encounter Note Phone call to number given. Female that answered states patient is at home now. Does not live there anymore. Called home number. No answer, voice mailbox is full. [facility] 05-11-2024 Telephone encounter Note Name of caller: Pita Contact phone number: [phone] Relationship to Patient: Mother Provider: Dr Green Practice: [facility] Chief Complaint/Reason for Call: Pt states she is out in incontinence supplies and needs an order placed. Pt would like to know how long the order will take Best time of day caller can be reached: Any Patient advised that office/PCP has 24-48 business hours to return their call: Yes [facility] 04-24-2024 Telephone encounter Note Jillian from [employer] is faxing a letter of Medical necessity to our office and would like the signed return fax sent to [phone]. [facility] 04-24-2024 Miscellaneous Notes Jillian from [employer] is faxing a letter of Medical necessity to our office and would like the signed return fax sent to [phone]. documented in this encounter [facility] 03-16-2024 Telephone encounter Note Rescheduled, thanks [facility] 03-16-2024 Miscellaneous Notes Rescheduled, thanks Name of Caller: Pita Jara Contact Reason for Appointment: Pita called in regards to scheduling an appointment for the patient. Pita is requesting a call back to schedule the appointment. Please advise. Office Name: Behavioral Health Medication Refills need, if any: No Medication Name: None documented in this encounter [facility] 03-15-2024 Telephone encounter Note Name of Caller: Pita Jara Contact Reason for Appointment: Pita called in regards to scheduling an appointment for the patient. Pita is requesting a call back to schedule the appointment. Please advise. Office Name: Behavioral Health Medication Refills need, if any: No Medication Name: None [facility] 03-08-2024 Telephone encounter Note Recent Visits Date Type Provider Dept 06/20/23 Office Visit Edith Pierce MD [facility] Showing recent visits within past 365 days and meeting all other requirements Future Appointments No visits were found meeting these conditions. Showing future appointments within next 90 days and meeting all other requirements Requested Prescriptions Pending Prescriptions Disp Refills amLODIPine (Norvasc) 5 MG tablet [Pharmacy Med Name: AMLODIPINE BESYLATE 5 MG TAB] 90 tablet 1 Sig: take 1 tablet by mouth once daily Provider: Edith Pierce MD Overdue for visit: Yes If yes - patient scheduled? No Most recent labs completed in chart? Yes Verified pharmacy: yes Verified day(s) supplied: yes Verified refill(s) needed (previous prescription showing no refills in chart): Yes Have you received any controlled medications from any other provider? N/A [facility] 03-08-2024 Miscellaneous Notes Recent Visits Date Type Provider Dept 06/20/23 Office Visit Edith Pierce MD [facility] Showing recent visits within past 365 days and meeting all other requirements Future Appointments No visits were found meeting these conditions. Showing future appointments within next 90 days and meeting all other requirements Requested Prescriptions Pending Prescriptions Disp Refills amLODIPine (Norvasc) 5 MG tablet [Pharmacy Med Name: AMLODIPINE BESYLATE 5 MG TAB] 90 tablet 1 Sig: take 1 tablet by mouth once daily Provider: Edith Pierce MD Overdue for visit: Yes If yes - patient scheduled? No Most recent labs completed in chart? Yes Verified pharmacy: yes Verified day(s) supplied: yes Verified refill(s) needed (previous prescription showing no refills in chart): Yes Have you received any controlled medications from any other provider? N/A documented in this encounter [facility] 02-06-2024 Note Addended by: MELISSA MILLS on: 02/06/2024 04:34 PM Modules accepted: Orders [facility] 02-06-2024 Note Addended by: MELISSA MILLS on: 02/06/2024 04:34 PM Modules accepted: Orders [facility] 02-06-2024 Miscellaneous Notes Addended by: MELISSA MILLS on: 02/06/2024 04:34 PM Modules accepted: Orders Pita left a VM in regards to the patient's medication refills. She states in the VM that the patient will need a refill of her Flomax to the [facility] in [place]. Medication refilled at this time. TC to patient, left another vm asking patient to please return the call to the office regarding her 02/28/2024 appointment that will be cancelled, asked patient to please return the call to determine if her symptoms are currently managed, or if she will need to reschedule, then this nurse called the [facility] and was transferred to patient's nurse, there was no answer and the vm was full and this nurse was unable to leave a vm, this nurse then made a call to patient mother Pita to try to determine if patient needs a follow up for her incontinence. Pita was unaware if patient needs this appointment or not, states she will call her to find out. Advised the appointment for 02/28/2024 will be cancelled. Pita states she will return the call to reschedule if it's needed. Attempted to call patient to discuss upcoming appointment. LVM to return call to office. Please call patient and check in to see if follow up is needed. If follow up is needed, please reschedule patient. Thank you. documented in this encounter [facility] 02-06-2024 Telephone encounter Note Pita left a VM in regards to the patient's medication refills. She states in the VM that the patient will need a refill of her Flomax to the [facility] in [place]. Medication refilled at this time. [facility] 02-06-2024 Telephone encounter Note TC to patient, left another vm asking patient to please return the call to the office regarding her 02/28/2024 appointment that will be cancelled, asked patient to please return the call to determine if her symptoms are currently managed, or if she will need to reschedule, then this nurse called the independent living facility and was transferred to patient's nurse, there was no answer and the vm was full and this nurse was unable to leave a vm, this nurse then made a call to patient mother Pita to try to determine if patient needs a follow up for her incontinence. Pita was unaware if patient needs this appointment or not, states she will call her to find out. Advised the appointment for 02/28/2024 will be cancelled. Pita states she will return the call to reschedule if it's needed. T [facility] 02-02-2024 Telephone encounter Note Attempted to call patient to discuss upcoming appointment. LVM to return call to office. [facility] 02-02-2024 Telephone encounter Note Please call patient and check in to see if follow up is needed. If follow up is needed, please reschedule patient. Thank you. [facility] 12-01-2023 Miscellaneous Notes 1st attempt. Patient mailbox full, unable to leave message. Sent unable to reach message to contact PCP. Leisa Nelson December 01, 2023 8:42 AM Patient not seen since 2021. Please call PCP office and let them know patient needs a refill on her levothyroxine Thanks ~~~~~~~~~~~~~~~~~~~ The following prescription(s) have been transmitted electronically to the patient's pharmacy. Requested Prescriptions Refused Prescriptions Disp Refills levothyroxine (SYNTHROID) 175 mcg tablet [Pharmacy Med Name: LEVOTHYROXINE 175 MCG TAB 175 Tablet] 30 tablet 10 Sig: TAKE 1 TABLET BY MOUTH ONCE DAILY *EMERGENCY REFILL* Refused By: SHANIA CHO Reason for Refusal: Patient needs appointment Shania Cho MD Pharmacy interfaced requesting the following refill. Requested Prescriptions Pending Prescriptions Disp Refills levothyroxine (SYNTHROID) 175 mcg tablet [Pharmacy Med Name: LEVOTHYROXINE 175 MCG TAB 175 Tablet] 30 tablet 10 Sig: TAKE 1 TABLET BY MOUTH ONCE DAILY *EMERGENCY REFILL* Patient last appointment: 01/06/2022 Next Appointment: Visit date not found Patient Phone numbers: [phone] (home) Request is for script(s) to be escript to pharmacy. Deinse Trevizo CMA documented in this encounter [facility] 11-21-2023 Telephone encounter Note Patient is out of medication. Medication name: metoprolol tartrate (Lopressor) 100 MG tablet Medication dosage: 100 MG tablet Monthly quantity needed: 60 How many day supply requestin days Medication route: oral (PO) Medication administration time(s): 2 times a day (BID) If taking medication PRN, reason for taking medication: N/A If this is a controlled substance do you receive this or any other controlled medication from any other doctor or facility: N/A Ordering provider: Date of last office visit: 06/20/23 Date of next office visit: None Date of last refill: (see medication tab): 06/20/23 Updated/Validated preferred pharmacy: Yes Patient instructed to contact the pharmacy prior to picking up the medication: Yes [facility] 11-21-2023 Miscellaneous Notes Patient is out of medication. Medication name: metoprolol tartrate (Lopressor) 100 MG tablet Medication dosage: 100 MG tablet Monthly quantity needed: 60 How many day supply requestin days Medication route: oral (PO) Medication administration time(s): 2 times a day (BID) If taking medication PRN, reason for taking medication: N/A If this is a controlled substance do you receive this or any other controlled medication from any other doctor or facility: N/A Ordering provider: Date of last office visit: 06/20/23 Date of next office visit: None Date of last refill: (see medication tab): 06/20/23 Updated/Validated preferred pharmacy: Yes Patient instructed to contact the pharmacy prior to picking up the medication: Yes documented in this encounter [facility] 11-11-2023 Telephone encounter Note Recent Visits Date Type Provider Dept 06/20/23 Office Visit Edith Pierce MD [facility] Showing recent visits within past 365 days and meeting all other requirements Future Appointments No visits were found meeting these conditions. Showing future appointments within next 90 days and meeting all other requirements Requested Prescriptions Pending Prescriptions Disp Refills rosuvastatin (Crestor) 10 MG tablet [Pharmacy Med Name: ROSUVASTATIN 10 MG TAB 10 Tablet] 30 tablet 10 Sig: TAKE 1 TABLET BY MOUTH DAILY Provider: Edith Pierce MD Verified pharmacy: yes Verified day(s) supplied: yes Verified refill(s) needed (previous prescription showing no refills in chart): Yes Have you received any controlled medications from any other provider? N/A Overdue for visit: No If yes - patient scheduled? No Most recent labs completed in chart? No Cholesterol: Lab Results Component Value Date LDL 152 (A) 03/24/2022 HDL 44 06/28/2023 TRIG 106 06/28/2023 [facility] 11-11-2023 Miscellaneous Notes Recent Visits Date Type Provider Dept 06/20/23 Office Visit Edith Pierce MD [facility] Showing recent visits within past 365 days and meeting all other requirements Future Appointments No visits were found meeting these conditions. Showing future appointments within next 90 days and meeting all other requirements Requested Prescriptions Pending Prescriptions Disp Refills rosuvastatin (Crestor) 10 MG tablet [Pharmacy Med Name: ROSUVASTATIN 10 MG TAB 10 Tablet] 30 tablet 10 Sig: TAKE 1 TABLET BY MOUTH DAILY Provider: Edith Pierce MD Verified pharmacy: yes Verified day(s) supplied: yes Verified refill(s) needed (previous prescription showing no refills in chart): Yes Have you received any controlled medications from any other provider? N/A Overdue for visit: No If yes - patient scheduled? No Most recent labs completed in chart? No Cholesterol: Lab Results Component Value Date LDL 152 (A) 03/24/2022 HDL 44 06/28/2023 TRIG 106 06/28/2023 documented in this encounter [facility] [employer] 09-16-2023 Telephone encounter Note Ordering provider: Date of last office visit: 06/20/23 Date of next office visit: None Updated/Validated preferred pharmacy: Yes Patient instructed to contact the pharmacy prior to picking up the medication: Yes (1) Medication name: omeprazole (PriLOSEC) [address] capsule Medication dosage: 40 MG Monthly quantity needed: 30 How many day supply requestin days Medication route: oral (PO) Medication administration time(s): Daily before breakfast If taking medication PRN, reason for taking medication: N/A If this is a controlled substance do you receive this or any other controlled medication from any other doctor or facility: N/A Date of last refill (see medication tab): 09/07/23 (2) Medication name: hydrALAZINE (Apresoline) 50 MG tablet Medication dosage: 50 mg (Miligrams Monthly quantity needed: 90 How many day supply requestin days Medication route: oral (PO) Medication administration time(s): 3 times a day (TID) If taking medication PRN, reason for taking medication: N/A If this is a controlled substance do you receive this or any other controlled medication from any other doctor or facility: N/A Date of last refill (see medication tab): 09/07/23 [facility] 09-16-2023 Miscellaneous Notes Ordering provider: Date of last office visit: 06/20/23 Date of next office visit: None Updated/Validated preferred pharmacy: Yes Patient instructed to contact the pharmacy prior to picking up the medication: Yes (1) Medication name: omeprazole (PriLOSEC) [address] capsule Medication dosage: 40 MG Monthly quantity needed: 30 How many day supply requestin days Medication route: oral (PO) Medication administration time(s): Daily before breakfast If taking medication PRN, reason for taking medication: N/A If this is a controlled substance do you receive this or any other controlled medication from any other doctor or facility: N/A Date of last refill (see medication tab): 09/07/23 (2) Medication name: hydrALAZINE (Apresoline) 50 MG tablet Medication dosage: 50 mg (Miligrams Monthly quantity needed: 90 How many day supply requestin days Medication route: oral (PO) Medication administration time(s): 3 times a day (TID) If taking medication PRN, reason for taking medication: N/A If this is a controlled substance do you receive this or any other controlled medication from any other doctor or facility: N/A Date of last refill (see medication tab): 09/07/23 documented in this encounter [facility] 09-06-2023 Telephone encounter Note Name of caller: Pita Contact phone number: [phone] Relationship to Patient: family member patient and mother Provider: Dr. Pierce Practice: [facility] Chief Complaint/Reason for Call: Pita states that Patient will need their hydrALAZINE, amLODIPine, and omeprazole medications refilled by Dr. Pierce. Pita was not able to verify the dosages or directions for these medications at this time and states that they will call back after lunch with this information to verify. Please advise. Best time of day caller can be reached: Any Patient advised that office/PCP has 24-48 business hours to return their call: No [facility] 09-06-2023 Miscellaneous Notes Name of caller: Pita Contact phone number: [phone] Relationship to Patient: family member patient and mother Provider: Dr. Pierce Practice: [facility] Chief Complaint/Reason for Call: Pita states that Patient will need their hydrALAZINE, amLODIPine, and omeprazole medications refilled by Dr. Pierce. Pita was not able to verify the dosages or directions for these medications at this time and states that they will call back after lunch with this information to verify. Please advise. Best time of day caller can be reached: Any Patient advised that office/PCP has 24-48 business hours to return their call: No documented in this encounter [facility] 09-04-2023 Emergency department Note Physician's here to transport pt. Urine collection system turned off, brief placed on pt for transport as pts pants were wet per warehouse supervisor 3rd shift. Loraine Wei RN 09/04/23 0817 [facility] 09-04-2023 Emergency department Note Physician's here to transport pt. Urine collection system turned off, brief placed on pt for transport as pts pants were wet per warehouse supervisor 3rd shift. Loraine Wei RN 09/04/23 0817 Pt pressed call button stating she peed around the purewick. Canister noted to be full, emptied and replaced. New chux placed under pt. Belongings including keys placed in belongings bag. VS obtained. Pt advised of ETA of transport. Saline lock right a/c removed intact and dressing applied. Loraine Wei RN 09/04/23 0755 Loraine Wei RN 09/04/23 0833 Answered patient's call light. Patient states that she is done with the water and would like to lay back down again. Patient re-adjusted in bed. Zonia Lindsay RN 09/04/23 0636 Answered patients call light. Patient requests a cup of ice-free water. Patient provided with water and patient repositioned in bed. Zonia Lindsay RN 09/04/23 0633 Answered patient's call light. Patient requests that the blanket be pulled over her right arm. [place] adjusted. Zonia Lindsay RN 09/04/23 0629 [facility] arranged through [facility] Eta 0815. Zonia Lindsay RN 09/04/23 0625 Answered patient call light. Patient requests that her purewick be straightened. Purewick adjusted. Zonia Lindsya RN 09/04/23 0600 Answered patient's call light. Patient requesting her purewick be checked. This nurse explained that the purewick is working. Zonia Lindsay RN 09/04/23 0552 Answered patient's call light. Patient requests repositioning. Patient boosted in bed. Patient states that she hears a vacuum behind her. This nurse explains that is the sound of the purewick working. Zonia Lindsay RN 09/04/23 0549 Answered patient's call light. Patient states that she had an accident and needed changed. Patient changed and cleaned. Placed on absorbant pad with purewick in place. Urine specimen sent to lab. Zonia Lindsay RN 09/04/23 0548 Answered patients call light. Patient requesting that her tissue box be set on her lap. Purewick has 600mL of urine. Zonia Lindsay RN 09/04/23 0547 Answered patient's call light. Patient states that she is cold. Patient provided with additional blankets and thermostat increased for patient comfort. Zonia Lindsay RN 09/04/23 0546 Answered patient's call light. Patient requests that the purewick positioning be checked. This nurse verified proper positioning of purewick. Zonia Lindsay RN 09/04/23 0541 Answered patients call light. Patient requests to have arms tucked in. Patient provided with additional blankets to cover her arms. Zonia Lindsay RN 09/04/23 0540 Answered patient's call light. Patient requesting additional blankets. Blankets provided to patient. Zonia Lindsay RN 09/04/23 0539 Patient placed on purewick. Zonia Lindsay RN 09/04/23 0538 documented in this encounter [facility] 09-04-2023 Emergency department Note Pt pressed call button stating she peed around the purewick. Canister noted to be full, emptied and replaced. New chux placed under pt. Belongings including keys placed in belongings bag. VS obtained. Pt advised of ETA of transport. Saline lock right a/c removed intact and dressing applied. Loraine Wei RN 09/04/23 0755 Loraine Wei RN 09/04/23 0833 [facility] 09-04-2023 Emergency department Note Answered patient's call light. Patient states that she is done with the water and would like to lay back down again. Patient re-adjusted in bed. Zonia Lindsay RN 09/04/23 0636 [facility] 09-04-2023 Emergency department Note Answered patients call light. Patient requests a cup of ice-free water. Patient provided with water and patient repositioned in bed. Zonia Lindsay RN 09/04/23 0633 [facility] 09-04-2023 Emergency department Note Answered patient's call light. Patient requests that the blanket be pulled over her right arm. [place] adjusted. Zonia Lindsay RN 09/04/23 0629 [facility] 09-04-2023 Emergency department Note [facility]. Eta 0815. Zonia Lindsay RN 09/04/23 0625 [facility] 09-04-2023 Emergency department Note Answered patient call light. Patient requests that her purewick be straightened. Purewick adjusted. Zonia Lindsay RN 09/04/23 0600 [facility] 09-04-2023 Hospital Discharge instructions Lilia Beard MD - 09/04/2023 5:51 AM EST Your covid swab today was negative. The following attachments cannot be sent through Care Everywhere.Shortness of Breath (Dyspnea) ([place])documented in this encounter [facility] 09-04-2023 Emergency department Note Answered patient's call light. Patient requesting her purewick be checked. This nurse explained that the purewick is working. Zonia Lindsay RN 09/04/23 0552 [facility] 09-04-2023 Emergency department Note Answered patient's call light. Patient requests repositioning. Patient boosted in bed. Patient states that she hears a vacuum behind her. This nurse explains that is the sound of the purewick working. Zonia Lindsay RN 09/04/23 0549 [facility] 09-04-2023 Emergency department Note Answered patient's call light. Patient states that she had an accident and needed changed. Patient changed and cleaned. Placed on absorbant pad with purewick in place. Urine specimen sent to lab. Zonia Lindsay RN 09/04/23 0548 [facility] 09-04-2023 Emergency department Note Answered patients call light. Patient requesting that her tissue box be set on her lap. Purewick has 600mL of urine. Zonia Lindsay RN 09/04/23 0547 [facility] 09-04-2023 Emergency department Note Answered patient's call light. Patient states that she is cold. Patient provided with additional blankets and thermostat increased for patient comfort. Zonia Lindsay RN 09/04/23 0546 [facility] 09-04-2023 Emergency department Note Answered patient's call light. Patient requests that the purewick positioning be checked. This nurse verified proper positioning of purewick. Zonia Lindsay RN 09/04/23 0541 [facility] 09-04-2023 Emergency department Note Answered patients call light. Patient requests to have arms tucked in. Patient provided with additional blankets to cover her arms. Zonia Lindsay RN 09/04/23 0540 [facility] 09-04-2023 Emergency department Note Answered patient's call light. Patient requesting additional blankets. Blankets provided to patient. Zonia Lindsay RN 09/04/23 0539 [facility] 09-04-2023 Emergency department Note Patient placed on purewick. Zonia Lindsay RN 09/04/23 0538 [facility] 08-25-2023 Hospital Discharge instructions Miquel Nagel MD - 08/25/2023 11:20 PM EST Please discuss your medications and how to take them with your primary care physician. If you have any worsening symptoms or repeat of symptoms please return to the emergency department for reevaluation documented in this encounter [facility] 08-25-2023 Emergency department Note Pt resting in the bed. Pt on the monitor call light in reach Afua Eagle RN 08/25/23 182 [facility] 08-25-2023 Emergency department Note Pt resting in the bed. Pt on the monitor call light in reach Afua Eagle RN 08/25/23 1827 Bed: 39 Expected date: Expected time: Means of arrival: Comments: EMS Dinora Flores RN 08/25/23 1550 documented in this encounter [facility] 08-25-2023 Emergency department Note Bed: 39 Expected date: Expected time: Means of arrival: Comments: EMS Dinora Flores RN 08/25/23 1550 [facility] 06-22-2023 History of Present illness Narrative Images from the original note were not included. Nick Green MD 06/22/2023 at 2:21 PM Office follow up PATIENT NAME: Jessy Mckeon DATE OF : 1965 TODAY'S DATE: 06/22/2023 CHIEF COMPLAINT: Chief Complaint Patient presents with Urinary Incontinence Yearly follow up Presto XXL maximum absorbency Subjective: Ms. Mckeon is a 58 y.o. female who presents to the office for follow up of urinary retention, urinary incontinence She does have fecal incontinence as well, she feels this is getting worse She does take flomax as needed, on the days when she feels she is having difficulty voiding Review of Systems Constitutional: Negative for activity change, chills, fatigue and fever. Genitourinary: Positive for frequency and urgency. Past Medical History: Past Medical History: Diagnosis Date Acid reflux Anxiety Arthritis Asperger syndrome Bipolar disorder (HCC) Chronic kidney disease stage 4 kidney failure Chronic pain Depression Edema of both legs GERD (gastroesophageal reflux disease) Hemorrhoids Hyperlipidemia Hypertension Hypothyroidism Iron (Fe) deficiency anemia Nephrogenic diabetes insipidus (HCC) Pain management Retention of urine, unspecified Sciatica SOB (shortness of breath) GRANT Type II or unspecified type diabetes mellitus without mention of complication, not stated as uncontrolled (HCC) Urinary incontinence nightly Past Surgical History: Past Surgical History: Procedure Laterality Date 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 CHOLECYSTECTOMY COLON SURGERY c-diff COLONOSCOPY 03/28/2018 no polyps UPPER GASTROINTESTINAL ENDOSCOPY 03/28/2018 Allergies: Benztropine, Diphenhydramine, Nsaids, and Other Social History: Social History Socioeconomic History Marital status: Single Spouse name: Not on file Number of children: Not on file Years of education: Not on file Highest education level: Not on file Occupational History Not on file Tobacco Use Smoking status: Former Smokeless tobacco: Never Substance and Sexual Activity Alcohol use: No Alcohol/week: 0.0 standard drinks of alcohol Drug use: No Sexual activity: Not on file Other Topics Concern Not on file Social History Narrative Not on file Social Determinants of Health Financial Resource Strain: Not on file Food Insecurity: Not on file Transportation Needs: Not on file Physical Activity: Not on file Stress: Not on file Social Connections: Not on file Intimate Partner Violence: Not At Risk (03/17/2023) Humiliation, Afraid, Rape, and Kick questionnaire Fear of Current or Ex-Partner: No Emotionally Abused: No Physically Abused: No Sexually Abused: No Housing Stability: Not on file Family History: Medications Prior to Admission medications Medication Sig Start Date End Date Taking? Authorizing Provider amLODIPine (Norvasc) 5 MG tablet Take 1 tablet (5 mg) by mouth daily. 06/20/23 12/17/23 Yes Edith Pierce MD buprenorphine (Butrans) 15 MCG/HR Place 20 patches on the skin Once. 12/11/21 Yes Historical Provider, clonazePAM (KlonoPIN) 0.5 MG tablet Take 1 tablet (0.5 mg) by mouth 2 times daily as needed for anxiety. 06/20/23 08/19/23 Yes Fran Bowers MD divalproex (Depakote ER) 250 MG 24 hr tablet Take 1 tablet (250 mg) by mouth 3 times daily. Do not crush, chew, or split. 06/03/23 Yes Fran Bowers MD DULoxetine (Cymbalta) [address] capsule TAKE 1 CAPSULE BY MOUTH DAILY 12/03/22 Yes Fran Bowers MD Incontinence Supply Disposable (Depend Pant Extra Large) misc 1 each in the morning and 1 each at noon and 1 each in the evening and 1 each before bedtime. 02/23/23 02/23/24 Yes VENTURA Hare NP levothyroxine (Synthroid, Levoxyl) 175 MCG tablet Take 175 mcg by mouth in the morning. 03/07/22 Yes Historical Provider, metoprolol tartrate (Lopressor) 100 MG tablet Take 1 tablet (100 mg) by mouth 2 times daily. 06/20/23 Yes Edith Pierce MD omeprazole (PriLOSEC) [address] capsule Take 1 capsule (40 mg) by mouth every morning (before breakfast). Do not crush or chew. 06/20/23 Yes Edith Pierce MD risperiDONE (RisperDAL) 3 MG tablet Take 2 tablets (6 mg) by mouth Nightly. 05/11/23 Yes Fran Bowers MD risperiDONE (RisperDAL) 3 MG tablet Take 1 tablet (3 mg) by mouth 2 times daily. Please take at lunchtime, and at bedtime Patient taking differently: Take 6 mg by mouth 2 times daily. Please take at lunchtime, and at bedtime 05/23/23 Yes Fran Bowers MD tamsulosin (Flomax) 0.4 MG 24 hr capsule Take 1 capsule (0.4 mg) by mouth daily. 02/04/23 Yes Emilia Santos APRN - JEWELRY RACKER traZODone (Desyrel) 100 MG tablet Take 2 tablets (200 mg) by mouth Nightly. Patient taking differently: Take 100 mg by mouth Nightly. 05/11/23 Yes Fran Bowers MD lamoTRIgine (LaMICtal) 200 MG tablet Take 1 tablet (200 mg) by mouth Nightly. Patient not taking: Reported on 06/22/2023 06/01/23 Fran Bowers MD amLODIPine (Norvasc) 5 MG tablet Take 1 tablet (5 mg) by mouth daily. 05/10/23 06/20/23 Edith Pierce MD clonazePAM (KlonoPIN) 0.5 MG tablet Take 1 tablet (0.5 mg) by mouth 2 times daily as needed for anxiety. 05/11/23 06/20/23 Fran Bowers MD hydrALAZINE (Apresoline) 50 MG tablet Take 1 tablet (50 mg) by mouth 3 times daily. Patient not taking: Reported on 06/20/2023 03/23/23 06/20/23 Lissett Gonzalez MD metoprolol tartrate (Lopressor) 100 MG tablet Take 1 tablet (100 mg) by mouth 2 times daily. 05/10/23 06/20/23 Edith Pierce MD omeprazole (PriLOSEC) [address] capsule TAKE 1 CAPSULE BY MOUTH EVERY MORNING BEFORE BREAKFAST 08/17/22 06/20/23 Edith Pierce MD Vitals: There were no vitals taken for this visit. Physical Exam General: alert, appears stated age, and cooperative Abdomen: soft and nondistended Back: straight, CVA tenderness absent : defer exam Labs: WBC Lab Results Component Value Date WBC 5.3 03/29/2023 BMP Lab Results Component Value Date NA 134 (L) 03/29/2023 K 4.8 03/29/2023 CL 103 03/29/2023 CO2 20 (L) 03/29/2023 BUN 47 (H) 03/29/2023 CREATININE 2.80 (H) 03/29/2023 CREATININE 1.92 (H) 05/03/2022 GLUCOSE 80 03/29/2023 CALCIUM 9.1 03/29/2023 PSA No results found for: "PSA" UA Lab Results Component Value Date COLORU Light Yellow 03/16/2023 GLUCOSEU Normal 03/16/2023 UROBILINOGEN Normal 03/16/2023 Review: Records reviewed from [facility] Impression/Plan Diagnoses and all orders for this visit: Stage 3b chronic kidney disease (HCC) - US retroperitoneum limited; Future Urge incontinence of urine - Incontinence Supply Disposable (Depend Pant Extra Large) misc; 1 each in the morning and 1 each at noon and 1 each in the evening and 1 each before bedtime. Post void residual 02/2021 was 81ml, no evidence for urinary retention Check renal US for worsening CKD Refilled diapers She is taking flomax PRN Follow up if symptoms worsen or fail to improve. Nick Green MD 06/22/23 2:21 PM documented in this encounter [facility] 06-20-2023 History of Present illness Narrative Images from the original note were not included. [facility] [address] [place] [address] [address] [facility] [address] Dept: [phone] Dept Loc: [phone] Reason for Visit: Follow-up (Was also in hospital twice recently pt reports ) Assessment and Plan 1. HTN (hypertension), benign continue her metoprolol however I did restart her on the Norvasc 5 mg 1 tablet p.o. daily. She will continue to monitor by her group work program director as well. - Lipid panel - CBC auto differential - Comprehensive metabolic panel 2. Chronic renal disease, stage IV (HCC) urology is following. Who continues to monitor her sodium levels. 3. Chronic kidney disease, stage 3b (HCC) 4. Morbid obesity with BMI of 45.0-49.9, adult (HCC) 5. Screening mammogram for breast cancer - Bilateral screening mammogram current treatment plan is effective, no change in therapy, orders and follow up as documented in EMR, lab results reviewed with patient, repeat labs ordered prior to next appointment, reviewed compliance with lifestyle measures, reviewed diet, exercise and weight control, reviewed medications and side effects in detail Return visit in 3 months. Jesse PEÑA is a 58-year-old female patient who has a history of chronic disease and diabetes insipidus with hyponatremia she is currently seeing her group work program director Dr. Andre. She is here for a checkup. She has a history of high blood pressure. She states that she just stopped taking her amlodipine. In the hospital they gave her hydralazine she states she does not remember why but she stopped taking that as well she is just taking metoprolol. I did let patient know her blood pressure was elevated she is not having any headaches or blurred vision she has a history of schizoaffective disorder in which she does see a psychiatrist regularly Dr. Bowers. She also sees senior production planner Dr. Cho for her hypothyroidism. Review of Systems Allergies Allergen Reactions Benztropine Disorientation and loss of muscle control Diphenhydramine Disorientation Nsaids CKD Stage 3 Other Anticholinergics: cause disorientation and loss of muscle control Outpatient Medications Prior to Visit Medication Sig Dispense Refill buprenorphine (Butrans) 15 MCG/HR Place 20 patches on the skin Once. clonazePAM (KlonoPIN) 0.5 MG tablet Take 1 tablet (0.5 mg) by mouth 2 times daily as needed for anxiety. 60 tablet 1 divalproex (Depakote ER) 250 MG 24 hr tablet Take 1 tablet (250 mg) by mouth 3 times daily. Do not crush, chew, or split. 30 tablet 0 DULoxetine (Cymbalta) [address] capsule TAKE 1 CAPSULE BY MOUTH DAILY 30 capsule 10 Incontinence Supply Disposable (Depend Pant Extra Large) misc 1 each in the morning and 1 each at noon and 1 each in the evening and 1 each before bedtime. 120 each 11 lamoTRIgine (LaMICtal) 200 MG tablet Take 1 tablet (200 mg) by mouth Nightly. 30 tablet 3 levothyroxine (Synthroid, Levoxyl) 175 MCG tablet Take 175 mcg by mouth in the morning. risperiDONE (RisperDAL) 3 MG tablet Take 2 tablets (6 mg) by mouth Nightly. 60 tablet 3 risperiDONE (RisperDAL) 3 MG tablet Take 1 tablet (3 mg) by mouth 2 times daily. Please take at lunchtime, and at bedtime (Patient taking differently: Take 6 mg by mouth 2 times daily. Please take at lunchtime, and at bedtime) 60 tablet 1 tamsulosin (Flomax) 0.4 MG 24 hr capsule Take 1 capsule (0.4 mg) by mouth daily. 30 capsule 11 traZODone (Desyrel) 100 MG tablet Take 2 tablets (200 mg) by mouth Nightly. (Patient taking differently: Take 100 mg by mouth Nightly.) 60 tablet 3 amLODIPine (Norvasc) 5 MG tablet Take 1 tablet (5 mg) by mouth daily. 30 tablet 0 hydrALAZINE (Apresoline) 50 MG tablet Take 1 tablet (50 mg) by mouth 3 times daily. (Patient not taking: Reported on 06/20/2023) 90 tablet 11 metoprolol tartrate (Lopressor) 100 MG tablet Take 1 tablet (100 mg) by mouth 2 times daily. 60 tablet 0 omeprazole (PriLOSEC) [address] capsule TAKE 1 CAPSULE BY MOUTH EVERY MORNING BEFORE BREAKFAST 30 capsule 10 No facility-administered medications prior to visit. Patient Active Problem List Diagnosis Urge incontinence of urine Dyspnea Anxiety Schizoaffective disorder (CMS/HCC) ([facility]) Chest pain Iron (Fe) deficiency anemia GERD (gastroesophageal reflux disease) Depression Suicidal ideations Acute gastric ulcer without hemorrhage or perforation Hypothyroidism Urinary incontinence Diverticulosis of large intestine without diverticulitis Chronic antral gastritis First degree hemorrhoids Nocturia Rotator cuff strain Osteoarthritis of patellofemoral joint Urge incontinence Urinary retention Localized edema Morbid obesity with BMI of 45.0-49.9, adult ([facility]) Hypomagnesemia JOSE A (acute kidney injury) ([facility]) Chronic bilateral low back pain with bilateral sciatica Primary hypothyroidism Psychogenic polydipsia Pneumonia Hyponatremia Hypertension Bipolar disorder ([facility]) Lung infiltrate on CT Chronic schizoaffective disorder ([facility]) Urinary tract infection Urinary tract infection without hematuria, site unspecified Chronic renal disease, stage IV ([facility]) Chronic kidney disease, stage 3b ([facility]) Past Medical History: Diagnosis Date Acid reflux Anxiety Arthritis Asperger syndrome Bipolar disorder ([facility]) Chronic kidney disease stage 4 kidney failure Chronic pain Depression Edema of both legs GERD (gastroesophageal reflux disease) Hemorrhoids Hyperlipidemia Hypertension Hypothyroidism Iron (Fe) deficiency anemia Nephrogenic diabetes insipidus ([facility]) Pain management Retention of urine, unspecified Sciatica SOB (shortness of breath) GRANT Type II or unspecified type diabetes mellitus without mention of complication, not stated as uncontrolled ([facility]) Urinary incontinence nightly Social History Tobacco Use Smoking status: Former Smokeless tobacco: Never Substance Use Topics Alcohol use: No Alcohol/week: 0.0 standard drinks of alcohol Past Surgical History: Procedure Laterality Date 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 CHOLECYSTECTOMY COLON SURGERY c-diff COLONOSCOPY 03/28/2018 no polyps UPPER GASTROINTESTINAL ENDOSCOPY 03/28/2018 Family History Problem Relation Name Age of Onset Hypertension Mother Cancer Father Colon cancer Maternal Grandmother Cancer Brother Health Maintenance Topic Date Due Hepatitis B Vaccines (1 of 3 - 3-dose series) Never done Medicare Annual Wellness (AWV) Never done HIV Screening Never done MMR Vaccines (1 of 1 - Standard series) Never done Depresssion Monitoring Never done Hepatitis C Screening Never done Zoster Vaccines (1 of 2) Never done COVID-19 Vaccine (3 - Pfizer series) 03/31/2022 Mammogram 05/11/2023 Cervical Cancer Screening 07/04/2023 Diabetes Screening 09/28/2023 TSH Level 03/17/2024 Lipid Panel 03/24/2027 Colorectal Cancer Screening 03/28/2028 DTaP/Tdap/Td Vaccines (2 - Td or Tdap) 12/04/2028 Influenza Vaccine Completed HIB Vaccines Aged Out IPV Vaccines Aged Out Hepatitis A Vaccines Aged Out Meningococcal Vaccine Aged Out Rotavirus Vaccines Aged Out HPV Vaccines Aged Out Pneumococcal Vaccine: Pediatrics (0 to 5 Years) and At-Risk Patients (6 to 64 Years) Aged Out Objective BP (!) 136/100 Pulse 62 Temp 36.1 C (97 F) Ht 5' 2" (1.575 m) Wt 245 lb (111 kg) SpO2 98% BMI 44.81 kg/m Physical Exam Data Reviewed and Summarized Labs: Lab Results Component Value Date WBC 5.3 03/29/2023 HGB 10.5 (L) 03/29/2023 HCT 31.3 (L) 03/29/2023 PLT 271 03/29/2023 TSH 0.056 (L) 03/17/2023 Lab Results Component Value Date NA 134 (L) 03/29/2023 K 4.8 03/29/2023 CL 103 03/29/2023 CO2 20 (L) 03/29/2023 BUN 47 (H) 03/29/2023 CREATININE 2.80 (H) 03/29/2023 GLUCOSE 80 03/29/2023 CALCIUM 9.1 03/29/2023 PROT 7.2 03/16/2023 BILITOT 0.3 03/16/2023 ALKPHOS 74 03/16/2023 AST 26 03/16/2023 ALT 15 03/16/2023 @GLUCOSELAB@ Lab Results Component Value Date CHOL 233 (A) 03/24/2022 Lab Results Component Value Date TRIG 142 03/24/2022 Lab Results Component Value Date HDL 53 03/24/2022 No results found for: "LDLCALC" No results found for: "VLDL" Lab Results Component Value Date CHOLHDLRATIO 4 03/24/2022 Imaging/Testing: ECG 12 lead Sinus bradycardia Borderline T abnormalities, anterior leads Electronically Signed On 03-19-2023 7:39:33 EDT by Shania Pierce MD documented in this encounter [facility] 06-20-2023 History of Present illness Narrative Images from the original note were not included. [facility] [address] [facility] [address] Dept: [phone] Dept Loc: [phone] Reason for Visit: Follow-up (Was also in hospital twice recently pt reports ) Assessment and Plan 1. HTN (hypertension), benign continue her metoprolol however I did restart her on the Norvasc 5 mg 1 tablet p.o. daily. She will continue to monitor by her group work program director as well. - Lipid panel - CBC auto differential - Comprehensive metabolic panel 2. Chronic renal disease, stage IV (HCC) urology is following. Who continues to monitor her sodium levels. 3. Chronic kidney disease, stage 3b (HCC) 4. Morbid obesity with BMI of 45.0-49.9, adult (HCC) 5. Screening mammogram for breast cancer - Bilateral screening mammogram current treatment plan is effective, no change in therapy, orders and follow up as documented in EMR, lab results reviewed with patient, repeat labs ordered prior to next appointment, reviewed compliance with lifestyle measures, reviewed diet, exercise and weight control, reviewed medications and side effects in detail Return visit in 3 months. Subjective CASEY is a 58-year-old female patient who has a history of chronic disease and diabetes insipidus with hyponatremia she is currently seeing her group work program director Dr. Andre. She is here for a checkup. She has a history of high blood pressure. She states that she just stopped taking her amlodipine. In the hospital they gave her hydralazine she states she does not remember why but she stopped taking that as well she is just taking metoprolol. I did let patient know her blood pressure was elevated she is not having any headaches or blurred vision she has a history of schizoaffective disorder in which she does see a psychiatrist regularly Dr. Bowers. She also sees senior production planner Dr. Cho for her hypothyroidism. Review of Systems Allergies Allergen Reactions Benztropine Disorientation and loss of muscle control Diphenhydramine Disorientation Nsaids CKD Stage 3 Other Anticholinergics: cause disorientation and loss of muscle control Outpatient Medications Prior to Visit Medication Sig Dispense Refill buprenorphine (Butrans) 15 MCG/HR Place 20 patches on the skin Once. clonazePAM (KlonoPIN) 0.5 MG tablet Take 1 tablet (0.5 mg) by mouth 2 times daily as needed for anxiety. 60 tablet 1 divalproex (Depakote ER) 250 MG 24 hr tablet Take 1 tablet (250 mg) by mouth 3 times daily. Do not crush, chew, or split. 30 tablet 0 DULoxetine (Cymbalta) [address] capsule TAKE 1 CAPSULE BY MOUTH DAILY 30 capsule 10 Incontinence Supply Disposable (Depend Pant Extra Large) misc 1 each in the morning and 1 each at noon and 1 each in the evening and 1 each before bedtime. 120 each 11 lamoTRIgine (LaMICtal) 200 MG tablet Take 1 tablet (200 mg) by mouth Nightly. 30 tablet 3 levothyroxine (Synthroid, Levoxyl) 175 MCG tablet Take 175 mcg by mouth in the morning. risperiDONE (RisperDAL) 3 MG tablet Take 2 tablets (6 mg) by mouth Nightly. 60 tablet 3 risperiDONE (RisperDAL) 3 MG tablet Take 1 tablet (3 mg) by mouth 2 times daily. Please take at lunchtime, and at bedtime (Patient taking differently: Take 6 mg by mouth 2 times daily. Please take at lunchtime, and at bedtime) 60 tablet 1 tamsulosin (Flomax) 0.4 MG 24 hr capsule Take 1 capsule (0.4 mg) by mouth daily. 30 capsule 11 traZODone (Desyrel) 100 MG tablet Take 2 tablets (200 mg) by mouth Nightly. (Patient taking differently: Take 100 mg by mouth Nightly.) 60 tablet 3 amLODIPine (Norvasc) 5 MG tablet Take 1 tablet (5 mg) by mouth daily. 30 tablet 0 hydrALAZINE (Apresoline) 50 MG tablet Take 1 tablet (50 mg) by mouth 3 times daily. (Patient not taking: Reported on 06/20/2023) 90 tablet 11 metoprolol tartrate (Lopressor) 100 MG tablet Take 1 tablet (100 mg) by mouth 2 times daily. 60 tablet 0 omeprazole (PriLOSEC) [address] capsule TAKE 1 CAPSULE BY MOUTH EVERY MORNING BEFORE BREAKFAST 30 capsule 10 No facility-administered medications prior to visit. Patient Active Problem List Diagnosis Urge incontinence of urine Dyspnea Anxiety Schizoaffective disorder (CMS/HCC) ([facility]) Chest pain Iron (Fe) deficiency anemia GERD (gastroesophageal reflux disease) Depression Suicidal ideations Acute gastric ulcer without hemorrhage or perforation Hypothyroidism Urinary incontinence Diverticulosis of large intestine without diverticulitis Chronic antral gastritis First degree hemorrhoids Nocturia Rotator cuff strain Osteoarthritis of patellofemoral joint Urge incontinence Urinary retention Localized edema Morbid obesity with BMI of 45.0-49.9, adult ([facility]) Hypomagnesemia JOSE A (acute kidney injury) ([facility]) Chronic bilateral low back pain with bilateral sciatica Primary hypothyroidism Psychogenic polydipsia Pneumonia Hyponatremia Hypertension Bipolar disorder ([facility]) Lung infiltrate on CT Chronic schizoaffective disorder ([facility]) Urinary tract infection Urinary tract infection without hematuria, site unspecified Chronic renal disease, stage IV ([facility]) Chronic kidney disease, stage 3b ([facility]) Past Medical History: Diagnosis Date Acid reflux Anxiety Arthritis Asperger syndrome Bipolar disorder ([facility]) Chronic kidney disease stage 4 kidney failure Chronic pain Depression Edema of both legs GERD (gastroesophageal reflux disease) Hemorrhoids Hyperlipidemia Hypertension Hypothyroidism Iron (Fe) deficiency anemia Nephrogenic diabetes insipidus ([facility]) Pain management Retention of urine, unspecified Sciatica SOB (shortness of breath) GRANT Type II or unspecified type diabetes mellitus without mention of complication, not stated as uncontrolled ([facility]) Urinary incontinence nightly Social History Tobacco Use Smoking status: Former Smokeless tobacco: Never Substance Use Topics Alcohol use: No Alcohol/week: 0.0 standard drinks of alcohol Past Surgical History: Procedure Laterality Date 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 CHOLECYSTECTOMY COLON SURGERY c-diff COLONOSCOPY 03/28/2018 no polyps UPPER GASTROINTESTINAL ENDOSCOPY 03/28/2018 Family History Problem Relation Name Age of Onset Hypertension Mother Cancer Father Colon cancer Maternal Grandmother Cancer Brother Health Maintenance Topic Date Due Hepatitis B Vaccines (1 of 3 - 3-dose series) Never done Medicare Annual Wellness (AWV) Never done HIV Screening Never done MMR Vaccines (1 of 1 - Standard series) Never done Depresssion Monitoring Never done Hepatitis C Screening Never done Zoster Vaccines (1 of 2) Never done COVID-19 Vaccine (3 - Pfizer series) 03/31/2022 Mammogram 05/11/2023 Cervical Cancer Screening 07/04/2023 Diabetes Screening 09/28/2023 TSH Level 03/17/2024 Lipid Panel 03/24/2027 Colorectal Cancer Screening 03/28/2028 DTaP/Tdap/Td Vaccines (2 - Td or Tdap) 12/04/2028 Influenza Vaccine Completed HIB Vaccines Aged Out IPV Vaccines Aged Out Hepatitis A Vaccines Aged Out Meningococcal Vaccine Aged Out Rotavirus Vaccines Aged Out HPV Vaccines Aged Out Pneumococcal Vaccine: Pediatrics (0 to 5 Years) and At-Risk Patients (6 to 64 Years) Aged Out Objective BP (!) 136/100 Pulse 62 Temp 36.1 C (97 F) Ht 5' 2" (1.575 m) Wt 245 lb (111 kg) SpO2 98% BMI 44.81 kg/m Physical Exam Vitals and nursing note reviewed. Constitutional: Appearance: Normal appearance. HENT: Head: Normocephalic and atraumatic. Nose: No congestion or rhinorrhea. Mouth/Throat: Mouth: Mucous membranes are moist. Pharynx: Oropharynx is clear. No posterior oropharyngeal erythema. Eyes: Extraocular Movements: Extraocular movements intact. Conjunctiva/sclera: Conjunctivae normal. Pupils: Pupils are equal, round, and reactive to light. Cardiovascular: Pulses: Normal pulses. Heart sounds: Normal heart sounds. No murmur heard. Pulmonary: Effort: Pulmonary effort is normal. No respiratory distress. Breath sounds: Normal breath sounds. No wheezing. Abdominal: General: Abdomen is flat. Bowel sounds are normal. Palpations: Abdomen is soft. Tenderness: There is no abdominal tenderness. Musculoskeletal: General: No swelling. Cervical back: Normal range of motion. Skin: General: Skin is warm and dry. Neurological: General: No focal deficit present. Mental Status: She is alert and oriented to person, place, and time. Mental status is at baseline. Psychiatric: Mood and Affect: Mood normal. Data Reviewed and Summarized Labs: Lab Results Component Value Date WBC 5.3 03/29/2023 HGB 10.5 (L) 03/29/2023 HCT 31.3 (L) 03/29/2023 PLT 271 03/29/2023 TSH 0.056 (L) 03/17/2023 Lab Results Component Value Date NA 134 (L) 03/29/2023 K 4.8 03/29/2023 CL 103 03/29/2023 CO2 20 (L) 03/29/2023 BUN 47 (H) 03/29/2023 CREATININE 2.80 (H) 03/29/2023 GLUCOSE 80 03/29/2023 CALCIUM 9.1 03/29/2023 PROT 7.2 03/16/2023 BILITOT 0.3 03/16/2023 ALKPHOS 74 03/16/2023 AST 26 03/16/2023 ALT 15 03/16/2023 @GLUCOSELAB@ Lab Results Component Value Date CHOL 233 (A) 03/24/2022 Lab Results Component Value Date TRIG 142 03/24/2022 Lab Results Component Value Date HDL 53 03/24/2022 No results found for: "LDLCALC" No results found for: "VLDL" Lab Results Component Value Date CHOLHDLRATIO 4 03/24/2022 Imaging/Testing: ECG 12 lead Sinus bradycardia Borderline T abnormalities, anterior leads Electronically Signed On 03-19-2023 7:39:33 EDT by Shania Pierce MD documented in this encounter [facility] 06-14-2023 Telephone encounter Note Ordering provider: Fran Bowers MD Date of last office visit: 05/23/23 Date of next office visit: 07/25/23 Updated/Validated preferred pharmacy: Yes Patient instructed to contact the pharmacy prior to picking up the medication: Yes (1) Medication name: traZODone (Desyrel) 100 MG tablet Medication dosage: 100 mg (Miligrams Monthly quantity needed: 60 How many day supply requestin days Medication route: oral (PO) Medication administration time(s): 2 times a day (BID) If taking medication PRN, reason for taking medication: N/A If this is a controlled substance do you receive this or any other controlled medication from any other doctor or facility: N/A Date of last refill (see medication tab): 05/11/23 (2) Medication name: risperiDONE (RisperDAL) 3 MG tablet Medication dosage: 3 mg (Miligrams Monthly quantity needed: 60 How many day supply requestin days Medication route: oral (PO) Medication administration time(s): 2 times a day (BID) If taking medication PRN, reason for taking medication: N/A If this is a controlled substance do you receive this or any other controlled medication from any other doctor or facility: N/A Date of last refill (see medication tab): 05/23/23 [facility] 06-14-2023 Miscellaneous Notes Ordering provider: Fran Bowers MD Date of last office visit: 05/23/23 Date of next office visit: 07/25/23 Updated/Validated preferred pharmacy: Yes Patient instructed to contact the pharmacy prior to picking up the medication: Yes (1) Medication name: traZODone (Desyrel) 100 MG tablet Medication dosage: 100 mg (Miligrams Monthly quantity needed: 60 How many day supply requestin days Medication route: oral (PO) Medication administration time(s): 2 times a day (BID) If taking medication PRN, reason for taking medication: N/A If this is a controlled substance do you receive this or any other controlled medication from any other doctor or facility: N/A Date of last refill (see medication tab): 05/11/23 (2) Medication name: risperiDONE (RisperDAL) 3 MG tablet Medication dosage: 3 mg (Miligrams Monthly quantity needed: 60 How many day supply requestin days Medication route: oral (PO) Medication administration time(s): 2 times a day (BID) If taking medication PRN, reason for taking medication: N/A If this is a controlled substance do you receive this or any other controlled medication from any other doctor or facility: N/A Date of last refill (see medication tab): 05/23/23 documented in this encounter [facility] 06-07-2023 Telephone encounter Note FYI [facility] 06-07-2023 Miscellaneous Notes FYI Name of caller: Lila from [facility] Contact phone number: [phone] Relationship to Patient: Lila from [facility] Provider: Dr. Pierce Practice: [facility] Chief Complaint/Reason for Call: Lila from [facility] calling and stated that a plan of care was faxed to the office on 04/12/23 and physicians orders were faxed over on 05/03/23 and 10/09/22. Lila stated that she will be re faxing the forms again today. Please advise. Best time of day caller can be reached: any Patient advised that office/PCP has 24-48 business hours to return their call: No documented in this encounter [facility] 06-07-2023 Telephone encounter Note Name of caller: Lila from [facility] Contact phone number: [phone] Relationship to Patient: Lila from [facility] Provider: Dr. Pierce Practice: [facility] Chief Complaint/Reason for Call: Lila from [facility] calling and stated that a plan of care was faxed to the office on 04/12/23 and physicians orders were faxed over on 05/03/23 and 10/09/22. Lila stated that she will be re faxing the forms again today. Please advise. Best time of day caller can be reached: any Patient advised that office/PCP has 24-48 business hours to return their call: No [facility] 05-11-2023 Miscellaneous Notes New Medications Ordered This Visit Medications clonazePAM (KlonoPIN) 0.5 MG tablet Sig: Take 1 tablet (0.5 mg) by mouth 2 times daily as needed for anxiety. Dispense: 60 tablet Refill: 1 I have written a thirty day prescription with one refill to provide 60 days duration of therapy to patient. risperiDONE (RisperDAL) 3 MG tablet Sig: Take 2 tablets (6 mg) by mouth Nightly. Dispense: 60 tablet Refill: 3 traZODone (Desyrel) 100 MG tablet Sig: Take 2 tablets (200 mg) by mouth Nightly. Dispense: 60 tablet Refill: 3 Reviewed controlled substance monitoring database via EHR integrated PDMP. No signs of abuse or diversion noted, no unexpected prescriptions noted. Refill is requested within expected time frame. This was sent to me in error. Dr BOWERS IS the provider and prescriber of these medications 05/03/22 last seen No future appt Ordering provider: Fran Bowers MD Date of last office visit: 04/12/23 Date of next office visit: 05/23/23 Updated/Validated preferred pharmacy: Yes Patient instructed to contact the pharmacy prior to picking up the medication: Yes (1) Medication name: clonazePAM (KlonoPIN) 0.5 MG tablet Medication dosage: 0.50 mg (Miligrams Monthly quantity needed: 90 How many day supply requestin days Medication route: oral (PO) Medication administration time(s): 2 times a day (BID) If taking medication PRN, reason for taking medication: N/A If this is a controlled substance do you receive this or any other controlled medication from any other doctor or facility: No Date of last refill (see medication tab): : 05/06/23 (2) Medication name: risperiDONE (RisperDAL) 3 MG tablet Medication dosage: 3 mg (Miligrams Monthly quantity needed: 90 How many day supply requestin days Medication route: oral (PO) Medication administration time(s): daily If taking medication PRN, reason for taking medication: N/A If this is a controlled substance do you receive this or any other controlled medication from any other doctor or facility: No Date of last refill (see medication tab): 05/06/23 (3) Medication name: traZODone (Desyrel) 100 MG tablet Medication dosage: 100 mg (Miligrams Monthly quantity needed: 90 How many day supply requestin days Medication route: oral (PO) Medication administration time(s): bedtime (HS) If taking medication PRN, reason for taking medication: N/A If this is a controlled substance do you receive this or any other controlled medication from any other doctor or facility: No Date of last refill (see medication tab): 05/06/23 documented in this encounter [facility] 05-11-2023 Telephone encounter Note New Medications Ordered This Visit Medications clonazePAM (KlonoPIN) 0.5 MG tablet Sig: Take 1 tablet (0.5 mg) by mouth 2 times daily as needed for anxiety. Dispense: 60 tablet Refill: 1 I have written a thirty day prescription with one refill to provide 60 days duration of therapy to patient. risperiDONE (RisperDAL) 3 MG tablet Sig: Take 2 tablets (6 mg) by mouth Nightly. Dispense: 60 tablet Refill: 3 traZODone (Desyrel) 100 MG tablet Sig: Take 2 tablets (200 mg) by mouth Nightly. Dispense: 60 tablet Refill: 3 Reviewed controlled substance monitoring database via EHR integrated PDMP. No signs of abuse or diversion noted, no unexpected prescriptions noted. Refill is requested within expected time frame. [facility] 05-11-2023 Telephone encounter Note This was sent to me in error. Dr BOWERS IS the provider and prescriber of these medications [facility] 05-11-2023 Telephone encounter Note 05/03/22 last seen No future appt [facility] 05-10-2023 Telephone encounter Note Ordering provider: Fran Bowers MD Date of last office visit: 04/12/23 Date of next office visit: 05/23/23 Updated/Validated preferred pharmacy: Yes Patient instructed to contact the pharmacy prior to picking up the medication: Yes (1) Medication name: clonazePAM (KlonoPIN) 0.5 MG tablet Medication dosage: 0.50 mg (Miligrams Monthly quantity needed: 90 How many day supply requestin days Medication route: oral (PO) Medication administration time(s): 2 times a day (BID) If taking medication PRN, reason for taking medication: N/A If this is a controlled substance do you receive this or any other controlled medication from any other doctor or facility: No Date of last refill (see medication tab): : 05/06/23 (2) Medication name: risperiDONE (RisperDAL) 3 MG tablet Medication dosage: 3 mg (Miligrams Monthly quantity needed: 90 How many day supply requestin days Medication route: oral (PO) Medication administration time(s): daily If taking medication PRN, reason for taking medication: N/A If this is a controlled substance do you receive this or any other controlled medication from any other doctor or facility: No Date of last refill (see medication tab): 05/06/23 (3) Medication name: traZODone (Desyrel) 100 MG tablet Medication dosage: 100 mg (Miligrams Monthly quantity needed: 90 How many day supply requestin days Medication route: oral (PO) Medication administration time(s): bedtime (HS) If taking medication PRN, reason for taking medication: N/A If this is a controlled substance do you receive this or any other controlled medication from any other doctor or facility: No Date of last refill (see medication tab): 05/06/23 [facility] 04-22-2023 Telephone encounter Note Last OV:05/03/22 Scheduled: 05/23/23 [facility] 04-22-2023 Miscellaneous Notes Last OV:05/03/22 Scheduled: 05/23/23 Ordering provider: Stan Date of last office visit: 05/03/22 Date of next office visit: N/A Updated/Validated preferred pharmacy: Yes Patient instructed to contact the pharmacy prior to picking up the medication: No (1) Medication name: clonazePAM (KlonoPIN) Medication dosage: 0.50 mg (Miligrams Monthly quantity needed: 3 How many day supply requestin Medication route: oral (PO) Medication administration time(s): daily If taking medication PRN, reason for taking medication: Anxiety If this is a controlled substance do you receive this or any other controlled medication from any other doctor or facility: No Date of last refill (see medication tab): 03/20/23 (2) Medication name: traZODone (Desyrel) Medication dosage: 100 mg (Miligrams Monthly quantity needed: 60 How many day supply requestin days Medication route: oral (PO) Medication administration time(s): bedtime (HS) If taking medication PRN, reason for taking medication: N/A If this is a controlled substance do you receive this or any other controlled medication from any other doctor or facility: No Date of last refill (see medication tab): 01/03/23 (3) Medication name: risperiDONE (RisperDAL) Medication dosage: 3 mg (Miligrams Monthly quantity needed: 60 How many day supply requestin days Medication route: oral (PO) Medication administration time(s): bedtime (HS) If taking medication PRN, reason for taking medication: N/A If this is a controlled substance do you receive this or any other controlled medication from any other doctor or facility: No Date of last refill (see medication tab): 12/03/22 documented in this encounter [facility] 04-21-2023 Telephone encounter Note Ordering provider: Stan Date of last office visit: 05/03/22 Date of next office visit: N/A Updated/Validated preferred pharmacy: Yes Patient instructed to contact the pharmacy prior to picking up the medication: No (1) Medication name: clonazePAM (KlonoPIN) Medication dosage: 0.50 mg (Miligrams Monthly quantity needed: 3 How many day supply requestin Medication route: oral (PO) Medication administration time(s): daily If taking medication PRN, reason for taking medication: Anxiety If this is a controlled substance do you receive this or any other controlled medication from any other doctor or facility: No Date of last refill (see medication tab): 03/20/23 (2) Medication name: traZODone (Desyrel) Medication dosage: 100 mg (Miligrams Monthly quantity needed: 60 How many day supply requestin days Medication route: oral (PO) Medication administration time(s): bedtime (HS) If taking medication PRN, reason for taking medication: N/A If this is a controlled substance do you receive this or any other controlled medication from any other doctor or facility: No Date of last refill (see medication tab): 01/03/23 (3) Medication name: risperiDONE (RisperDAL) Medication dosage: 3 mg (Miligrams Monthly quantity needed: 60 How many day supply requestin days Medication route: oral (PO) Medication administration time(s): bedtime (HS) If taking medication PRN, reason for taking medication: N/A If this is a controlled substance do you receive this or any other controlled medication from any other doctor or facility: No Date of last refill (see medication tab): 12/03/22 [facility] 03-23-2023 Nurse Note Report called to Renee ROBERSON at [facility]. [facility] 03-23-2023 Nurse Note Report called to Renee ROBERSON at [facility]. Patient refusing to call and wait for help when ambulating between the bedside commode and bed. Patient was provided education on fall risks and safety. Patient refusing purwick. Bed alarm on. patient experiencing nonsustaining bradycardia when sleeeping. shes dipping into the 40's and comes right back up. currently between 48-58. otherwise asymptomatic. BP 163/92. Dr. Sierra was notified. No New orders at this time. Patients BP 168/105 with activity at shift change. PO metoprolol administered with night meds. Repeat BP 137/94. Patients medications have been locked up in the med room and labeled. documented in this encounter [facility] 03-23-2023 Note Formatting of this n ote might be different from the original. Pt received auth to go to [facility]. Transportation set up with [facility] will order picker/assembler pt at 4:30 today. Informed TCC Ewelina Wan, community board member, Idalia Ohara, [facility] rehab/Shayna, pt and pt's mother Pita. [facility] 03-23-2023 Note Formatting of this n ote might be different from the original. [facility] set up with [facility]they will order picker/assembler pt at 4:30 today. Informed TCC Ewelina Wan, community board member, Idalia Ohara, [facility] rehab/Shayna, pt and pt's mother Pita. [facility] 03-23-2023 Miscellaneous Notes [facility] Transportation set up with Robert Nikki/ [facility]they will order picker/assembler pt at 4:30 today. Informed TCC Ewelina Wan, community board member, Idalia Ohara, [facility] rehab/Shayna, pt and pt's mother Pita. Discharge med rec and MAR sent to [facility] via [facility] per TCC request. Patient Choice Patient Name: JESSY MCKEON Date of : 1965 All Providers Sent Referral Name: [facility] Phone: [phone] Address: [address] [place] [address] DC orders and MAR tasked to be sent to [facility]. [facility] and can [facility] today. They are able to provide Butran if written in the discharge orders. Dr. Gonazlez notified. Met with pt at bedside to discuss discharge planning. Pt is agreeable to [facility]. Asked pt about Butran patch, pt requests tcc discuss with her mom Pita. Call placed to Pita, no answer, voicemail left requesting return call. [facility] met with pt at bedside, pt is agreeable to [facility]. [facility] does not have an open bed at this time. Will plan to dc to [facility] once bed avail. Pt will need to provide own Butran patch. Will discuss with pt. Problem: Knowledge Deficit Goal: Patient/family/caregiver demonstrates understanding of disease process, treatment plan, medications, and discharge instructions Outcome: Progressing Problem: Potential for Compromised Skin Integrity Goal: Skin Integrity is Maintained or Improved Outcome: Progressing Goal: Nutritional status is improving Outcome: Progressing Problem: Urinary Incontinence Goal: Perineal skin integrity is maintained or improved Outcome: Progressing Images from the original note were not included. Care Management Progress Note PT worked with pt yesterday rec IP rehab. Task sent to [facility] to send referral to [facility]. Met with pt and updated her on the referral. Pt is from [facility], wants to go to [facility]. Will discuss with Justyna Dove RN from [facility]. Pt has has been to rehab in the past. CM to follow. Discharge Milestones and Delays Expected Date/Time: 03/24/2023 Afternoon Disposition: Snf Facility Discharge Milestones Place discharge order Complete med reconciliation Case mgmt discharge readiness Clinical Stability Diagnsotic Workup Expected Discharge History Expected Date/Time Set By Reviewed At 03/24/2023 Afternoon Isabel Kevin RN 03/22/2023 8:32 AM referal to [facility] made today 03/22/2023." 03/21/2023 Afternoon Paul Anderson, DO 03/21/2023 12:52 PM 03/22/2023 SARANYA Marroquin 03/21/2023 9:32 AM 03/20/2023 Kevin Grimes, 03/20/2023 8:43 AM 03/20/2023 SARANYA Marroquin 03/18/2023 9:03 AM 03/18/2023 Ana Sierra MD 03/17/2023 4:21 AM 03/17/2023 Tyler Sawant MD 03/17/2023 4:06 AM 03/17/2023 Tyler Sawant MD 03/16/2023 9:20 PM Length of Stay (Days): 5 GMLOS: 3.8 Referral placed to [facility] via [facility] per TCC request. Await review and response regarding ability to accept. TCC notified. Problem: Knowledge Deficit Goal: Patient/family/caregiver demonstrates understanding of disease process, treatment plan, medications, and discharge instructions Outcome: Progressing Problem: Potential for Compromised Skin Integrity Goal: Skin Integrity is Maintained or Improved Outcome: Progressing Goal: Nutritional status is improving Outcome: Progressing Problem: Urinary Incontinence Goal: Perineal skin integrity is maintained or improved Outcome: Progressing SW following with TCC. Will place amb auth on chart. Images from the original note were not included. Care Management Progress Note AMS noted to be improving. IV abx for UTI have completed. Pt noted to be on Butran patch with weekly patch change, which is prescribed by Dr. Jorge Gonsales as an outpt. Pt has requested referral to [facility]; PT/OT orders noted and currently await therapy notes for recommendations prior to beginning referral. Discharge Milestones and Delays Expected Date/Time: 03/22/2023 Disposition: Snf Facility Discharge Milestones Place discharge order Complete med reconciliation Case mgmt discharge readiness Clinical Stability Diagnsotic Workup Expected Discharge History Expected Date/Time Set By Reviewed At 03/22/2023 SARANYA Marroquin 03/21/2023 9:32 AM 03/20/2023 Kevin Grimes DO 03/20/2023 8:43 AM 03/20/2023 SARANYA Marroquin 03/18/2023 9:03 AM 03/18/2023 Ana Sierra MD 03/17/2023 4:21 AM 03/17/2023 Tyler Sawant MD 03/17/2023 4:06 AM 03/17/2023 Tyler Sawant MD 03/16/2023 9:20 PM Length of Stay (Days): 4 GMLOS: 3.8 SW met with pt. Introduced self. Pt states she is not a registered voter. Received message from Dr Grimes that pt is requesting to go to [facility] upon dc. Requested PT/OT orders from Dr Grimes for recommendations. Await PT/OT evals/ recs and will see if [facility] is an option at that time. TCC will continue to follow for add'l needs for dc. Problem: Knowledge Deficit Goal: Patient/family/caregiver demonstrates understanding of disease process, treatment plan, medications, and discharge instructions Outcome: Progressing Problem: Potential for Compromised Skin Integrity Goal: Skin Integrity is Maintained or Improved Outcome: Progressing Goal: Nutritional status is improving Outcome: Progressing Problem: Urinary Incontinence Goal: Perineal skin integrity is maintained or improved Outcome: Progressing Care Managment Initial Assessment Date: 03/18/2023 Patient Name: Jessy Mckeon : 1965 Patient Information Source of Information: Patient Cognition/Language: Impaired Permission given to speak with patient high school admissions representative/caregiver as indicated: Confirmation of Payer with patient/family: Yes Payer Name: Medicare A and B : No Confirmation of Primary Care Physician: Confirmed PCP Name: Dr Akins Seen in last 2 years?: Yes Primary Caregiver: Self If assistance needed, confirmed caregiver ready, willing and able to care for patient at discharge: Confirmed with: Living Arrangements Current Residence: Number of Floors Number of Entry Steps: Bed/Bath Levels: Facility: ([facility]) Facility Name: [facility] in [facility] [phone] Plan to Return: Lives with: Alone Support Systems: Children, Parent, Family members, Friends/neighbors, Comments (Other) (staff at [facility]) Activities of Daily Living Ambulation: Assistance Bathing/Dressing: Independent Elimination/Continence/Toileting: Independent Feeding: Independent Who Assists with Activities of Daily Living: Instrumental Activities of Daily Living Prescription Coverage: Yes Pharmacy Used: [facility] Medication Management: Independent Transportation/Shopping: Assistance Provider Transportation/Shopping Assistance Provider Name: family Transportation Mode: Car Needs Assistance with Transportation at Discharge: No Meal Preparation: Assistance Provider Meal Prep Assistance Provider Name: give some meals at [facility] Laundry/Cleaning: Assistance Provider Laundry/Cleaning Assistance Provider Name: Assist with cleanng and laundry Finances/Bill Paying: Assistance Provider Finances/Bill Payer Assistance Provider Name: family Communication: Independent Types of Care Services/Equipment Utilized Care Services: (n/a) Dialysis Type: NA Durable Medical Equipment: Walker Patient's Goal/Discharge Plan Patient expects to be discharged to: Discharge Planning Actions: Patient's Choice Rights and [employer] and Collaborative Relationships Disclosed as Indicated for Post-Acute Care: Interdisciplinary Team Engagement: Social Work Referral for: Additional Information: Went into room introduced self and role to pt. She appears to be 0 x 1-2. She came to ER ith c/o mental status changes. She lives in an [facility] facility. Psych has been consulted. Received 2 doses of IV antibiotics. Wants to return to [place], will follow for needs. . Ewelina Rojo RN Problem: Knowledge Deficit Goal: Patient/family/caregiver demonstrates understanding of disease process, treatment plan, medications, and discharge instructions Outcome: Progressing Problem: Potential for Compromised Skin Integrity Goal: Skin Integrity is Maintained or Improved Outcome: Progressing Goal: Nutritional status is improving Outcome: Progressing Problem: Urinary Incontinence Goal: Perineal skin integrity is maintained or improved Outcome: Progressing Went into room to introduced self and role. Pt is sleeping and would not wake up. Will assess as time permits. Pt came to ER with change in mental status. Creat at 3.07. She was found to have a UTI. She was started on IV antibiotics and IV fluid. Will follow for needs. . Problem: Knowledge Deficit Goal: Patient/family/caregiver demonstrates understanding of disease process, treatment plan, medications, and discharge instructions Outcome: Progressing Problem: Potential for Compromised Skin Integrity Goal: Skin Integrity is Maintained or Improved Outcome: Progressing Goal: Nutritional status is improving Outcome: Progressing Problem: Urinary Incontinence Goal: Perineal skin integrity is maintained or improved Outcome: Progressing documented in this encounter [facility] 03-23-2023 Note Formatting of this n ote might be different from the original. Discharge med rec and MAR sent to [facility] via [facility] per TCC request. [facility] 03-23-2023 Note Formatting of this n ote might be different from the original. Discharge med rec and MAR sent to [facility] via [facility] per TCC request. [facility] 03-23-2023 Note Formatting of this n ote might be different from the original. Patient Choice Patient Name: JESSY MCKEON Date of : 1965 All Providers Sent Referral Name: [facility] Phone: [phone] Address: [address] [place] [address] [facility] 03-23-2023 Note Formatting of this n ote might be different from the original. Patient Choice Patient Name: JESSY MCKEON Date of : 1965 All Providers Sent Referral Name: [facility] Phone: [phone] Address: [address] [place] [address] [facility] 03-23-2023 Note Formatting of this n ote might be different from the original. DC orders and MAR tasked to be sent to [facility]. [facility] 03-23-2023 Note Formatting of this n ote might be different from the original. DC orders and MAR tasked to be sent to [facility]. [facility] 03-23-2023 Note Formatting of this n ote might be different from the original. [facility]. They are able to provide Butran if written in the discharge orders. Dr. Gonzalez notified. [facility] 03-23-2023 Note Formatting of this n ote might be different from the original. [facility] and [facility] today. They are able to provide Butran if written in the discharge orders. Dr. Gonzalez notified. [facility] 03-23-2023 Note Formatting of this n ote might be different from the original. Met with pt at bedside to discuss discharge planning. Pt is agreeable to [facility]. Asked pt about Butran patch, pt requests tcc discuss with her mom Pita. Call placed to Pita, no answer, voicemail left requesting return call. [facility] 03-23-2023 Note Formatting of this n ote might be different from the original. Met with pt at bedside to discuss discharge planning. Pt is agreeable to [facility]. Asked pt about Butran patch, pt requests tcc discuss with her mom Pita. Call placed to Pita, no answer, voicemail left requesting return call. T [facility] 03-23-2023 History of Present illness Narrative Physical Therapy Facility/Department: [facility] Physical Therapy Daily Treatment Note NAME: Jessy Mckeon : 1965 Date of Service: 03/23/2023 Discharge Recommendations: IP Rehab PT Equipment Recommendations Equipment Needed: No Assessment Requires PT Follow-Up: Yes Assessment: Pt presents with the listed deficits and decreased functional mobility. Greatest concern is pt's functional safety. Required max safety, equipment management and redirection cues throughout. Pt hyper-verbal throughout session and starting new task prior to completing previous task. Bed mobility demo'd Mod I. Transfers demo'd Van to FWw. Ambulation demo'd Van using FWW for 15 ft distances at a time. PT goals progressing. Pt would benefit from continued skilled PT and is appropriate for 3hr of PT/day if able to maintain cognitive focus. Recommend IP Rehab at discharge. Performance Deficits/Impairments: Decreased safe awareness, Decreased strength, Increased pain, Decreased posture, Decreased balance, Decreased functional mobility Patient Diagnosis(es): The primary encounter diagnosis was Urinary tract infection without hematuria, site unspecified. Diagnoses of Renal insufficiency, Altered mental status, unspecified altered mental status type, and Chronic schizoaffective disorder (HCC) were also pertinent to this visit. has a past medical history of Acid reflux, Anxiety, Arthritis, Asperger syndrome, Bipolar disorder (HCC), Chronic kidney disease, Chronic pain, Depression, Edema of both legs, GERD (gastroesophageal reflux disease), Hemorrhoids, Hyperlipidemia, Hypertension, Hypothyroidism, Iron (Fe) deficiency anemia, Nephrogenic diabetes insipidus (HCC), Pain management, Retention of urine, unspecified, Sciatica, SOB (shortness of breath), Type II or unspecified type diabetes mellitus without mention of complication, not stated as uncontrolled ([facility]), and Urinary incontinence. has a past surgical history that includes Bladder tumor excision (2008); Upper gastrointestinal endoscopy (03/28/2018); Colonoscopy (03/28/2018); Back surgery; Colon surgery; and Cholecystectomy. Restrictions Restrictions/Precautions Restrictions/Precautions: Fall Risk, General Precautions Required Braces or Orthoses?: No Vision/Hearing Subjective General Chart Reviewed: Yes Patient Assessed for Rehabilitation Services: Yes Additional Pertinent Hx: Bipolar disorder, Asperger's, CKD 4 Response To Previous Treatment: Patient with no complaints from previous session. Family / Caregiver Present: No Diagnosis: Metabolic encephalopathy due to UTI. Follows Commands: Impaired (Requires redirection and cues for safety) Subjective Subjective: Pt supine, agreeable to therapy. Very tangential at times. Requests to go to the bathroom to go "poo-poo" States shes going well while at the hospital. Reports being stiff and wanting to ambulate. RN cleared for PT. Patient Stated Goal: go to [facility] to walk better Pain Assessment Pain Assessment: 0-10 Pain Score: 3 Cognition/Orientation Overall Cognitive Status: Exceptions Arousal/Alertness: Appropriate responses to stimuli Following Commands: Follows one step commands with repetition Attention Span: Attends with cues to redirect Safety Judgement: Decreased awareness of need for safety Problem Solving: Assistance required to generate solutions Insights: Decreased awareness of deficits Initiation: Requires cues for some Sequencing: Requires cues for some Cognition Comment: tangential, impulsive, almost talks nonstop Objective Bed mobility Bridging: Modified independent Rolling to Left: Modified independent Rolling to Right: Modified independent Supine to Sit: Modified independent Sit to Supine: Modified independent Scooting: Modified independent Comment: HOb elevated. Cues for ecctric control. Pt with "faliling" movements at times. Cues for safety and controled movements. Cues for redirection and attention to task being asked to complete. Transfers Sit to Stand: Minimal Assistance Stand to sit: Minimal Assistance Comment: Transfers from various surfaces demo'd Van. Impulsive tendancies, requiring safety cues and redirection to task for FWW management and safety. Denies dizziness. Ambulation Ambulation: Yes Ambulation 1 Surface 1: Level tile Device 1: Rolling walker Assistance 1: Minimum assistance Distance (ft) 1: 15ft x 4 with seated rest rbeak in between Comments 1: Widened MALDONADO (intermalleolar distance approx 15")--lacks focus resulting in slightly posterior pelvis. Pt performs turns rapidly leading to exaggerated (and unsafe) weight shifts. Cues for FWW management. Cues for FWW safety. Balance Comments: SUPfor static and dynamic sitting EOB. Static standing SBA. Dynamic standing CGA. All standing with FWW support. Pt reports having Rollator at home. Exercises Straight Leg Raise: BLE AROM x 10 reps Quad Sets: BLE AROM x 10 reps Heelslides: BLE AROM x 10 reps sitting Gluteal Sets: AROM c 5 re0ps with 3 sec hold Hip Flexion: BLE AROM x 10 reps Hip Abduction: BLE AROM x 10 reps Hip Adduction: BLE AROM x 10 reps Knee Long Arc Quad: BLE AROM x 10 reps Ankle Pumps: BLE AROM 2 x 10 reps Comments: Cues for proper technique and alignment. Cues for control with movement Plan Times per Week: 3-5 Plan Weeks: 2 Current Treatment Recommendations: Strengthening, ROM, Balance Training, Functional Mobility Training, Transfer Training, Gait Training, Endurance Training, Patient/Caregiver Education & Training, Safety Education & Training, Home Exercise Program Safety Safety Devices Safety Devices in Place: Yes Type of Devices: Call light within reach, Nurse notified, Gait belt, Left in bed, Bed alarm in place AM-PAC Score AM-PAC Inpatient Mobility Raw Score (No Stairs) : 17 Goals Encounter Problems Encounter Problems (Active) Balance Patient will maintain static standing balance for 2 minutes with supervision in order to demonstrate decreased risk of falling. (Progressing) Start: 03/21/23 Expected End: 04/04/23 Mobility Patient will ambulate 100 feet with CGA and device in order to improve safety and independence with mobility. (Progressing) Start: 03/21/23 Expected End: 04/04/23 Transfers Patient will complete sit to stand transfer with supervision to device in order to improve safety and prepare for out of bed mobility. (Progressing) Start: 03/21/23 Expected End: 04/04/23 Education Education Given To: Patient Education Provided: PT Role, Plan of Care, Gait Training, Transfer Training, Energy Conservation, Home Exercise Program, Equipment, General Safety Education Method: Verbal Education Outcome: Verbalized understanding Therapy Time Individual Co-treatment Time In 1152 Time Out 1216 Minutes 24 Timed Code Treatment Minutes: 24 Minutes (FA, GT) FLOORING GRADER wore PPE in compliance with hospital guidelines and regulation when treating this patient. Aspen Mercer FLOORING GRADER Occupational Therapy Facility/Department: [facility] Occupational Therapy Initial Evaluation NAME: Jessy Mckeon : 1965 Date of Service: 03/23/2023 Discharge Recommendations: IP Rehab Assessment REQUIRES OT FOLLOW-UP: Yes Performance deficits / Impairments: Decreased functional mobility , Decreased ADL status, Decreased strength, Decreased safe awareness, Decreased cognition, Decreased endurance, Decreased balance, Decreased high-level IADLs, Decreased posture Assessment: OT eval completed. Pt presents with above deficits limiting functional indep. Pt is a falls and safety risk due to balance and impulsivity. Pt is not safe to return home alone to [facility]. Recommend IP REHAB upon discharge. Prognosis: Good Decision Making: Low Complexity Exam: [facility] Activity Tolerance Activity Tolerance: Patient Tolerated treatment well Patient Diagnosis(es): The primary encounter diagnosis was Urinary tract infection without hematuria, site unspecified. Diagnoses of Renal insufficiency, Altered mental status, unspecified altered mental status type, and Chronic schizoaffective disorder (HCC) were also pertinent to this visit. has a past medical history of Acid reflux, Anxiety, Arthritis, Asperger syndrome, Bipolar disorder (HCC), Chronic kidney disease, Chronic pain, Depression, Edema of both legs, GERD (gastroesophageal reflux disease), Hemorrhoids, Hyperlipidemia, Hypertension, Hypothyroidism, Iron (Fe) deficiency anemia, Nephrogenic diabetes insipidus (HCC), Pain management, Retention of urine, unspecified, Sciatica, SOB (shortness of breath), Type II or unspecified type diabetes mellitus without mention of complication, not stated as uncontrolled (HCC), and Urinary incontinence. has a past surgical history that includes Bladder tumor excision (2008); Upper gastrointestinal endoscopy (03/28/2018); Colonoscopy (03/28/2018); Back surgery; Colon surgery; and Cholecystectomy. Restrictions Restrictions/Precautions Restrictions/Precautions: Fall Risk, General Precautions Required Braces or Orthoses?: No Vision/Hearing Vision: Impaired Vision Exceptions: Wears glasses at all times Hearing: Functional/adequate for paticipation in therapy Cognition/Orientation Overall Cognitive Status: Exceptions Arousal/Alertness: Appropriate responses to stimuli Following Commands: Follows one step commands with repetition Attention Span: Attends with cues to redirect Safety Judgement: Decreased awareness of need for safety Insights: Decreased awareness of deficits Cognition Comment: tangential, impulsive, almost talks nonstop Overall Orientation Status: Impaired Orientation Level: Oriented to person, Oriented to place (+ year) Subjective General Chart Reviewed: Yes Patient Assessed for Rehabilitation Services: Yes Additional Pertinent Hx: schizoaffective disorder Family / Caregiver Present: No Diagnosis: Pt admitted with UTI and altered mental status. Subjective Subjective: Pt reclined in bed, agreeable to OT eval. General Comments Comments: R hand dominant Patient Stated Goal: to stop falling Pain Assessment Pain Assessment: 0-10 Pain Score: 3 Pain Type: Chronic pain Pain Location: Generalized Pain Descriptors: Aching Pain Interventions: Repositioned, Ambulation/increased activity Social/Functional History Social/Functional History Lives With: Alone Type of Home: Independent living (2nd floor [place]) Home Layout: One level Home Access: Elevator Bathroom Shower/Tub: Shower chair with back Bathroom Equipment: Shower chair, Grab bars in shower ADL Assistance: Needs assistance Homemaking Assistance: Needs assistance Homemaking Responsibilities: Yes Ambulation Assistance: Independent With device?: Yes Device: rollator Transfer Assistance: Independent Objective Gross Assessment: Yes AROM: (1/2 shldr, distal grossly WFL) Strength: (3+/5) Coordination: Generally decreased, functional Tone: Normal Sensation: Intact Observation/Palpation Posture: Fair Observation: arthritic digits with deformities Balance Sitting Balance: Supervision Standing Balance: Minimal assistance Functional Mobility Functional - Mobility Device: Rolling Walker Activity: To/from bathroom Assist Level: Minimal assistance Functional Mobility Comments: Min assist overall functional amb to/from bathroom using FWW due to occasional LOB due to decreased safety and impulsivity. Toilet Transfers Toilet - Technique: Ambulating Equipment Used: Standard toilet Toilet Transfer: Minimal assistance ADL LE Dressing: Stand by assistance Toileting: Contact guard assistance Additional Comments: SBA to don/doff slipper socks. CGA toileting. SBA to wash hands standing at sink after being instructed to complete task. Pt impulsive with tasks. Estimate min assist LE ADL and bathing and SBA UE ADL. Bed mobility Supine to Sit: Modified independent Sit to Supine: Modified independent Scooting: Modified independent Comment: HOB elevated and used rails Transfers Sit to stand: Stand by assistance Stand to sit: Minimal assistance Transfer Comments: decreased control on descent to bed, pt throwing self to sitting EOB. Plan Times per Week: 3-5 Plan Weeks: 4 Current Treatment Recommendations: Strengthening, ROM, Balance Training, Functional Mobility Training, Endurance Training, Gait Training, Pain Management, Safety Education & Training, Patient/Caregiver Education & Training, Equipment Evaluation, Education, & procurement, Positioning, Self-Care / ADL, Home Management Training, Cognitive/Perceptual Training Safety Safety Devices in place: Yes Type of devices: Left in bed, Call light within reach, Gait belt, Patient at risk for falls, All fall risk precautions in place, Nurse notified Restraints Initially in place: No AM-PAC Score AM-PAC Inpatient Daily Activity Raw Score: 20 ADL Inpatient CMS G-Code Modifier: CJ Goals Encounter Problems Encounter Problems (Active) Balance Patient will maintain dynamic standing balance for 10 minutes with modified independence in order to demonstrate decreased risk of falling. Start: 03/23/23 Expected End: 04/20/23 Dressings Lower Extremities Patient will dress lower body modif indep Start: 03/23/23 Expected End: 04/20/23 Grooming Patient will complete daily grooming tasks modif indep stanidng at sink Start: 03/23/23 Expected End: 04/20/23 Safety Misc: Demo good safety techniques during functional activity without cues Start: 03/23/23 Expected End: 04/20/23 Toileting Patient will complete toileting tasks at standard toilet with modified independence. Start: 03/23/23 Expected End: 04/20/23 Transfers Misc: Modif indep toilet transfer Start: 03/23/23 Expected End: 04/20/23 Education Education Given To: Patient Education Provided: OT role, Plan of care, Transfer training, ADL adaptive strategies Education Method: Verbal, Demonstration Barriers to Learning: Cognition Education Outcome: Continued education needed Therapy Time Individual Co-treatment Time In 932 Time Out 0949 Minutes 16 Goals and/or treatment plan was established in collaboration with patient/family/other representatives. Patient's Occupational Therapy Plan of Care supervision is transferred to [facility] Occupational Therapist. Lourdes Escobedo OTR/L Nutrition update completed. Chart reviewed. 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 Images from the original note were not included. Hospitalist Progress Note 03/23/2023 Subjective: Admit Date: 03/16/2023 PCP: Edith Pierce MD Room#: W5-539/W5-539 A Brief Hospital course: Jessy Mckeon is a 58 y.o. female with PMH of Bipolar, Depression, Anxiety, Asperger syndrome, CKD 4, Hyponatremia, and Hypothyroidism who presented with Chief Complaint of AMS. ED VSS. Na 134, Cr 3, Hgb 10.8, Valproic acid 67, and UA was weakly positive for UTI. Urine culture obtained and she was started on Rocephin. Urine tox negative. Head CT negative for acute pathology. Admitted for further workup. Psych consult and adjusted medications, patient had much improved mentation follow these changes. Urine culture positive for Klebsiella susceptible to Rocephin and she completed a 3 day course. Interval History: 03/22-No overnight issues. Bps have been elevated. Still awaiting placement. Case and plan discussed with patient and bedside nurse. All questions answered. 03/23- pt reports feeling sleepy, denies any complaints, no acute issues overnt. Adult diet Regular; Low Sodium (2 gm) 24HR INTAKE/OUTPUT: Intake/Output Summary (Last 24 hours) at 03/23/2023 0916 Last data filed at 03/23/2023 0500 Gross per 24 hour Intake 1186 ml Output 3600 ml Net -2414 ml Past Medical History: Past Medical History: Diagnosis Date Acid reflux Anxiety Arthritis Asperger syndrome Bipolar disorder (HCC) Chronic kidney disease stage 4 kidney failure Chronic pain Depression Edema of both legs GERD (gastroesophageal reflux disease) Hemorrhoids Hyperlipidemia Hypertension Hypothyroidism Iron (Fe) deficiency anemia Nephrogenic diabetes insipidus (HCC) Pain management Retention of urine, unspecified Sciatica SOB (shortness of breath) GRANT Type II or unspecified type diabetes mellitus without mention of complication, not stated as uncontrolled ([facility]) Urinary incontinence nightly LABS: CBC: No results for input(s): WBC, RBC, HGB, HCT, MCV, RDW, PLT in the last 72 hours. BMP:No results for input(s): NA, K, CL, CO2, BUN, CREATININE, GLUCOSE, CALCIUM, ANIONGAP in the last 72 hours. LIVER PROFILE:No results for input(s): AST, ALT, BILITOT, ALKPHOS, PROT in the last 72 hours. No lab exists for component: LABALBU PT/INR: No results for input(s): PROTIME, INR in the last 72 hours. CARDIAC ENZYMES: No results for input(s): TROPONINI in the last 72 hours. Procalcitonin: No results found for: PROCAL COVID-19 PCR: No results for input(s): COVID19 in the last 72 hours. Objective: Vitals: BP 129/72 (BP Location: Left arm, Patient Position: Lying) Pulse 60 Temp (!) 35.6 C (96 F) (Temporal) Resp 16 Ht 5' 2" (1.575 m) Wt 249 lb 4.8 oz (113 kg) SpO2 94% BMI 45.60 kg/m Pulse Ox: SpO2 Av.2 % Min: 94 % Max: 100 % Supplemental O2: Patient is alert, awake, oriented x 3 Heart S1 S2 No murmurs Lungs clear to auscultation Abdomen soft non distended no organomegaly No focal neurological deficits Medications: Current Facility-Administered Medications: acetaminophen (Tylenol) tablet 650 mg, 650 mg, Oral, q6h PRN, 650 mg at 03/22/231957 OR acetaminophen (Tylenol) suppository 650 mg, 650 mg, Rectal, q6h PRN, Ana Sierra MD amLODIPine (Norvasc) tablet 10 mg, 10 mg, Oral, Daily, Paul Anderson DO, 10 mg at 03/23/23828 buprenorphine (Butrans) 20 MCG/HR 1 patch, 1 patch, TransDERmal, Weekly, Kevin Grimes DO, 1 patch at 03/20/23 1646 clonazePAM (KlonoPIN) tablet 0.25 mg, 0.25 mg, Oral, TID PRN, Fran Bowers MD, 0.25 mg at 03/23/23 0035 divalproex (Depakote ER) 24 hr tablet 250 mg, 250 mg, Oral, TID, Ana Sierra MD, 250 mg at 03/23/23 0831 DULoxetine (Cymbalta) DR capsule 60 mg, 60 mg, Oral, Daily, Ana Sierra MD, 60 mg at 03/23/23828 heparin injection 5,000 Units, 5,000 Units, SubCUTAneous, 3 times per day, Ana Sierra MD, 5,000 Units at 03/20/23 1525 hydrALAZINE (Apresoline) tablet 50 mg, 50 mg, Oral, TID, Paul Anderson DO, 50 mg at 03/23/23829 lamoTRIgine (LaMICtal) tablet 100 mg, 100 mg, Oral, Nightly, Fran Bowers MD, 100 mg at 03/22/231953 levothyroxine (Synthroid, Levoxyl) tablet 175 mcg, 175 mcg, Oral, Daily, Ana Sierra MD, 175 mcg at 03/23/23 0531 metoprolol tartrate (Lopressor) tablet 100 mg, 100 mg, Oral, BID, Kevin Grimes DO, 100 mg at 03/23/23829 ondansetron ODT (Zofran-ODT) disintegrating tablet 4 mg, 4 mg, Oral, q8h PRN OR ondansetron (Zofran) injection 4 mg, 4 mg, IntraVENous, q6h PRN, Ana Sierra MD pantoprazole (ProtoNix) EC tablet 40 mg, 40 mg, Oral, qAM AC, Ana Sierra MD, 40 mg at 03/23/23 0531 polyethylene glycol (PEG) 3350 (Miralax) packet 17 g, 17 g, Oral, Daily PRN, Ana Sierra MD, 17 g at 03/20/23810 risperiDONE (RisperDAL) tablet 3 mg, 3 mg, Oral, Nightly, Ana Sierra MD, 3 mg at 03/22/231953 senna-docusate sodium (Senokot-S) 8.6-50 MG tablet 2 tablet, 2 tablet, Oral, BID, Kevin Grimes DO, 2 tablet at 03/23/23828 tamsulosin (Flomax) 24 hr capsule 0.4 mg, 0.4 mg, Oral, Daily, Ana Sierra MD, 0.4 mg at 03/23/23828 traZODone (Desyrel) tablet 100 mg, 100 mg, Oral, Nightly, Fran Bowers MD, 100 mg at 03/22/231952 Assessment Data: (CAT1) CBC, BMP, lactate, liver enzymes, and/or UA ordered & reviewed, in summary they show CKD (LOW: 2x CAT1 or independent historian MOD: 3x CAT1 or 1x CAT3 EXTENSIVE: 3x CAT1 and 1x CAT3) Acute, acute on chronic, unstable/uncontrolled chronic problems/diagnoses: Uncontrolled HTN- bp IMPROVED AMS/Metabolic encephalopathy 2/2 to medications and UTI-resolved Bipolar disorder/depression/anxiety/Asperg er syndrome Chronic pain UTI-treated Low TSH Asymptomatic bradycardia while sleeping Urinary retention Stable chronic problems affecting care, new non-acute diagnoses: CKD stage 4 Chronic anemia Hypothyroidism Morbid obesity Plan As a result of the above findings & factors, the following mgmt was pursued: - continue hydralzine, bp running in 120's, will decrease norvasc dose at this time. - psych following, recs noted and appreciated - Confirmed Butran 20 mcg/hr qWeek on [facility](Dr. Jorge Gonsales, [address] [place] [address]; prescribes outpatient); no one currently on the team will prescribe this so will need this patch at facility that patient is accepted to - am labs, replace lytes prn - PT/OT/CM/SW - delirium precautions: increase activity - DVT prophylaxis: heparin and encourage ambulation Complexity: Acute or chronic illness or injury posing a threat to life (HIGH). Risk: Decision to admit to hospital-level care (HIGH). Advance Directive: Full Code Anticipated Discharge - Date - tbd - Location - Skilled Facility - Pending the following - insurance auth/precert; otherwise patient is medically stable for discharge today Total time spent (which include face to face and non face to face encounters) : 45 minutes Extended Emergency Contact Information Primary Emergency Contact: Piat Jara Mobile Relation: Parent Preferred language: Northern Irish Mechanism Inspector needed? No Secondary Emergency Contact: Mamadou Jara Relation: Other Lissett Gonzalez MD Division of Hospitalist Medicine [place] [facility] [place] [place]y Mckeon is a 58 y.o. female Chief Complaint Patient presents with Altered Mental Status Patient seen and examined, toelrating medications, mild side effects reported though she is sleepy following AM valproic acid. I did discuss concern about impaired mobility and falls, she minimizes this. She owkn0ny that she "mistly" sleeps in a chair, feels this makes it easier to get up (especially since she lives alone.). Current Facility-Administered Medications: acetaminophen (Tylenol) tablet 650 mg, 650 mg, Oral, q6h PRN, 650 mg at 03/22/231957 OR acetaminophen (Tylenol) suppository 650 mg, 650 mg, Rectal, q6h PRN, Ana Sierra MD amLODIPine (Norvasc) tablet 10 mg, 10 mg, Oral, Daily, Paul Anderson DO, 10 mg at 03/23/23828 buprenorphine (Butrans) 20 MCG/HR 1 patch, 1 patch, TransDERmal, Weekly, Kevin Grimes DO, 1 patch at 03/20/23 1646 clonazePAM (KlonoPIN) tablet 0.25 mg, 0.25 mg, Oral, TID PRN, Fran Bowers MD, 0.25 mg at 03/23/23 0035 divalproex (Depakote ER) 24 hr tablet 250 mg, 250 mg, Oral, TID, Ana Sierra MD, 250 mg at 03/23/23 0831 DULoxetine (Cymbalta) DR capsule 60 mg, 60 mg, Oral, Daily, Ana Sierra MD, 60 mg at 03/23/23 08 heparin injection 5,000 Units, 5,000 Units, SubCUTAneous, 3 times per day, Ana Sierra MD, 5,000 Units at 03/20/23 1525 hydrALAZINE (Apresoline) tablet 50 mg, 50 mg, Oral, TID, Paul Andersno DO, 50 mg at 03/23/23 0830 lamoTRIgine (LaMICtal) tablet 100 mg, 100 mg, Oral, Nightly, Fran Bowers MD, 100 mg at 03/22/231953 levothyroxine (Synthroid, Levoxyl) tablet 175 mcg, 175 mcg, Oral, Daily, Ana Sierra MD, 175 mcg at 03/23/23 05 metoprolol tartrate (Lopressor) tablet 100 mg, 100 mg, Oral, BID, Kevin Grimes DO, 100 mg at 03/23/23 0830 ondansetron ODT (Zofran-ODT) disintegrating tablet 4 mg, 4 mg, Oral, q8h PRN OR ondansetron (Zofran) injection 4 mg, 4 mg, IntraVENous, q6h PRN, Ana Sierra MD pantoprazole (ProtoNix) EC tablet 40 mg, 40 mg, Oral, qAM AC, Ana Sierra MD, 40 mg at 03/23/23 0531 polyethylene glycol (PEG) 3350 (Miralax) packet 17 g, 17 g, Oral, Daily PRN, Ana Sierra MD, 17 g at 03/20/23810 risperiDONE (RisperDAL) tablet 3 mg, 3 mg, Oral, Nightly, Ana Sierra MD, 3 mg at 03/22/231953 senna-docusate sodium (Senokot-S) 8.6-50 MG tablet 2 tablet, 2 tablet, Oral, BID, Kevin Grimes DO, 2 tablet at 03/23/23828 tamsulosin (Flomax) 24 hr capsule 0.4 mg, 0.4 mg, Oral, Daily, Ana Sierra MD, 0.4 mg at 03/23/23828 traZODone (Desyrel) tablet 100 mg, 100 mg, Oral, Nightly, Fran Bowers MD, 100 mg at 03/22/231952 Allergies Allergen Reactions Benztropine Disorientation and loss of muscle control Diphenhydramine Disorientation Nsaids CKD Stage 3 Other Anticholinergics: cause disorientation and loss of muscle control Vitals: 03/22/23 1542 03/22/23 1930 03/22/23 2315 03/23/23 0533 BP: (!) 149/85 (!) 143/82 (!) 147/57 129/72 BP Location: Left arm Left arm Left arm Left arm Patient Position: Sitting Lying Lying Lying Pulse: 67 71 88 60 Resp: 24 16 18 16 Temp: 36.4 C (97.6 F) (!) 35.8 C (96.5 F) 37.1 C (98.7 F) (!) 35.6 C (96 F) TempSrc: Temporal Temporal Temporal Temporal SpO2: 99% 99% 99% 94% Weight: Height: Physical Exam Vitals reviewed. Constitutional: Appearance: Normal appearance. Cardiovascular: Rate and Rhythm: Normal rate. Pulmonary: Effort: Pulmonary effort is normal. Neurological: General: No focal deficit present. Mental Status: She is alert and oriented to person, place, and time. Mental status is at baseline. Psychiatric: Attention and Perception: She is attentive. She does not perceive auditory or visual hallucinations. Mood and Affect: Mood is not anxious or depressed. Speech: She is communicative. Speech is not tangential. Behavior: Behavior is not agitated or hyperactive. Thought Content: Thought content is not paranoid or delusional. Thought content does not include suicidal ideation. Cognition and Memory: Cognition is not impaired. She does not exhibit impaired recent memory. Judgment: Judgment is impulsive. Judgment is not inappropriate. Patient is cooperating with needed care here. Recent Results (from the past 48 hour(s)) POCT glucose meter Collection Time: 03/22/23 12:28 AM Result Value Ref Range Glucose 91 70 - 100 mg/dL Assessment Resolving delirium Resolving UTI History of schizoaffective disorder Plan Medications as ordered, to ECF as able. Images from the original note were not included. Hospitalist Progress Note 03/22/2023 Subjective: Admit Date: 03/16/2023 PCP: Edith Pierce MD Room#: W5-539/W5-539 A Brief Hospital course: Jessy Mckeon is a 58 y.o. female with PMH of Bipolar, Depression, Anxiety, Asperger syndrome, CKD 4, Hyponatremia, and Hypothyroidism who presented with Chief Complaint of AMS. ED VSS. Na 134, Cr 3, Hgb 10.8, Valproic acid 67, and UA was weakly positive for UTI. Urine culture obtained and she was started on Rocephin. Urine tox negative. Head CT negative for acute pathology. Admitted for further workup. Psych consult and adjusted medications, patient had much improved mentation follow these changes. Urine culture positive for Klebsiella susceptible to Rocephin and she completed a 3 day course. Interval History: 03/22-No overnight issues. Bps have been elevated. Still awaiting placement. Case and plan discussed with patient and bedside nurse. All questions answered. Adult diet Regular; Low Sodium (2 gm) 24HR INTAKE/OUTPUT: Intake/Output Summary (Last 24 hours) at 03/22/2023 1208 Last data filed at 03/22/2023 1101 Gross per 24 hour Intake 1000 ml Output 1500 ml Net -500 ml Past Medical History: Past Medical History: Diagnosis Date Acid reflux Anxiety Arthritis Asperger syndrome Bipolar disorder (HCC) Chronic kidney disease stage 4 kidney failure Chronic pain Depression Edema of both legs GERD (gastroesophageal reflux disease) Hemorrhoids Hyperlipidemia Hypertension Hypothyroidism Iron (Fe) deficiency anemia Nephrogenic diabetes insipidus (HCC) Pain management Retention of urine, unspecified Sciatica SOB (shortness of breath) GRANT Type II or unspecified type diabetes mellitus without mention of complication, not stated as uncontrolled (HCC) Urinary incontinence nightly LABS: CBC: No results for input(s): WBC, RBC, HGB, HCT, MCV, RDW, PLT in the last 72 hours. BMP:No results for input(s): NA, K, CL, CO2, BUN, CREATININE, GLUCOSE, CALCIUM, ANIONGAP in the last 72 hours. LIVER PROFILE:No results for input(s): AST, ALT, BILITOT, ALKPHOS, PROT in the last 72 hours. No lab exists for component: LABALBU PT/INR: No results for input(s): PROTIME, INR in the last 72 hours. CARDIAC ENZYMES: No results for input(s): TROPONINI in the last 72 hours. Procalcitonin: No results found for: PROCAL COVID-19 PCR: No results for input(s): COVID19 in the last 72 hours. Objective: Vitals: BP (!) 180/84 (BP Location: Right arm) Pulse 50 Temp 36.5 C (97.7 F) (Temporal) Resp 22 Ht 5' 2" (1.575 m) Wt 249 lb 4.8 oz (113 kg) SpO2 100% BMI 45.60 kg/m Pulse Ox: SpO2 Av.3 % Min: 92 % Max: 100 % Supplemental O2: Physical Exam Cardiovascular: Rate and Rhythm: Normal rate and regular rhythm. Pulses: Normal pulses. Heart sounds: Normal heart sounds. Pulmonary: Effort: Pulmonary effort is normal. Breath sounds: Normal breath sounds. Abdominal: General: Bowel sounds are normal. Medications: Current Facility-Administered Medications: acetaminophen (Tylenol) tablet 650 mg, 650 mg, Oral, q6h PRN, 650 mg at 03/22/23 0524 OR acetaminophen (Tylenol) suppository 650 mg, 650 mg, Rectal, q6h PRN, Ana Sierra MD buprenorphine (Butrans) 20 MCG/HR 1 patch, 1 patch, TransDERmal, Weekly, Kevin Grimes DO, 1 patch at 03/20/23 1646 clonazePAM (KlonoPIN) tablet 0.25 mg, 0.25 mg, Oral, TID PRN, Fran Bowers MD, 0.25 mg at 03/22/23523 divalproex (Depakote ER) 24 hr tablet 250 mg, 250 mg, Oral, TID, Ana Sierra MD, 250 mg at 03/22/23823 DULoxetine (Cymbalta) DR capsule 60 mg, 60 mg, Oral, Daily, Ana Sierra MD, 60 mg at 03/22/23822 heparin injection 5,000 Units, 5,000 Units, SubCUTAneous, 3 times per day, Ana Sierra MD, 5,000 Units at 03/20/23 1525 lamoTRIgine (LaMICtal) tablet 100 mg, 100 mg, Oral, Nightly, Fran Bowers MD, 100 mg at 03/21/232007 levothyroxine (Synthroid, Levoxyl) tablet 175 mcg, 175 mcg, Oral, Daily, Ana Sierra MD, 175 mcg at 03/22/23523 metoprolol tartrate (Lopressor) tablet 100 mg, 100 mg, Oral, BID, Kevin Grimes DO, 100 mg at 03/21/232008 ondansetron ODT (Zofran-ODT) disintegrating tablet 4 mg, 4 mg, Oral, q8h PRN OR ondansetron (Zofran) injection 4 mg, 4 mg, IntraVENous, q6h PRN, Ana Sierra MD pantoprazole (ProtoNix) EC tablet 40 mg, 40 mg, Oral, qAM AC, Ana Sierra MD, 40 mg at 03/22/23 05 polyethylene glycol (PEG) 3350 (Miralax) packet 17 g, 17 g, Oral, Daily PRN, Ana Sierra MD, 17 g at 03/20/23 0811 risperiDONE (RisperDAL) tablet 3 mg, 3 mg, Oral, Nightly, Ana Sierra MD, 3 mg at 03/21/232007 senna-docusate sodium (Senokot-S) 8.6-50 MG tablet 2 tablet, 2 tablet, Oral, BID, Kevin Grimes DO, 2 tablet at 03/22/23821 tamsulosin (Flomax) 24 hr capsule 0.4 mg, 0.4 mg, Oral, Daily, Ana Sierra MD, 0.4 mg at 03/22/23822 traZODone (Desyrel) tablet 100 mg, 100 mg, Oral, Nightly, Fran Bowers MD, 100 mg at 03/21/232007 Assessment Data: (CAT1) CBC, BMP, lactate, liver enzymes, and/or UA ordered & reviewed, in summary they show CKD (LOW: 2x CAT1 or independent historian MOD: 3x CAT1 or 1x CAT3 EXTENSIVE: 3x CAT1 and 1x CAT3) Acute, acute on chronic, unstable/uncontrolled chronic problems/diagnoses: Hypertension-uncontrolled AMS/Metabolic encephalopathy 2/2 to medications and UTI-improving Bipolar disorder/depression/anxiety/Asperg er syndrome Chronic pain UTI-treated Low TSH Asymptomatic bradycardia while sleeping Urinary retention Stable chronic problems affecting care, new non-acute diagnoses: CKD stage 4 Chronic anemia Hypothyroidism Morbid obesity Plan As a result of the above findings & factors, the following mgmt was pursued: - start Norvasc and scheduled hydralazine - psych following, recs noted and appreciated - Confirmed Butran 20 mcg/hr qWeek on [facility](Dr. Jorge Gonsales, [address] [place] [address]; prescribes outpatient); no one currently on the team will prescribe this so will need this patch at facility that patient is accepted to - am labs, replace lytes prn - PT/OT/CM/SW - delirium precautions: increase activity - DVT prophylaxis: heparin and encourage ambulation Complexity: Acute or chronic illness or injury posing a threat to life (HIGH). Risk: Decision to admit to hospital-level care (HIGH). Advance Directive: Full Code Anticipated Discharge - Date - 03/22/23? - Location - Skilled Facility - Pending the following - insurance auth/precert; otherwise patient is medically stable for discharge today Total time spent (which include face to face and non face to face encounters) : 55 minutes Extended Emergency Contact Information Primary Emergency Contact: Pita Jara Mobile Relation: Parent Preferred language: Northern Irish Mechanism Inspector needed? No Secondary Emergency Contact: Mamadou Jara Relation: Other Paul Anderson DO Division of Hospitalist Medicine Inpatient Medical Services[place] [place] Jessy Mckeon is a 58 y.o. female Chief Complaint Patient presents with Altered Mental Status Patient seen and examined. Remains open to Rx including ECF prefers [facility]. Discussed butrans Rx, sees a physician at [facility] ([facility]). Current Facility-Administered Medications: acetaminophen (Tylenol) tablet 650 mg, 650 mg, Oral, q6h PRN, 650 mg at 03/21/23 1207 OR acetaminophen (Tylenol) suppository 650 mg, 650 mg, Rectal, q6h PRN, Ana Sierra MD buprenorphine (Butrans) 20 MCG/HR 1 patch, 1 patch, TransDERmal, Weekly, Kevin Grimes DO, 1 patch at 03/20/23 1646 clonazePAM (KlonoPIN) tablet 0.25 mg, 0.25 mg, Oral, TID PRN, Fran Bowers MD, 0.25 mg at 03/21/23 1207 divalproex (Depakote ER) 24 hr tablet 250 mg, 250 mg, Oral, TID, Ana Sierra MD, 250 mg at 03/21/23 0801 DULoxetine (Cymbalta) DR capsule 60 mg, 60 mg, Oral, Daily, Ana Sierra MD, 60 mg at 03/21/23 0800 heparin injection 5,000 Units, 5,000 Units, SubCUTAneous, 3 times per day, Ana Sierra MD, 5,000 Units at 03/20/23 1525 lamoTRIgine (LaMICtal) tablet 100 mg, 100 mg, Oral, Nightly, Fran Bowers MD, 100 mg at 03/20/231999 levothyroxine (Synthroid, Levoxyl) tablet 175 mcg, 175 mcg, Oral, Daily, Ana Sierra MD, 175 mcg at 03/21/23 0433 metoprolol tartrate (Lopressor) tablet 100 mg, 100 mg, Oral, BID, Kevin Grimes DO, 100 mg at 03/21/23 0801 ondansetron ODT (Zofran-ODT) disintegrating tablet 4 mg, 4 mg, Oral, q8h PRN OR ondansetron (Zofran) injection 4 mg, 4 mg, IntraVENous, q6h PRN, Ana Sierra MD pantoprazole (ProtoNix) EC tablet 40 mg, 40 mg, Oral, qAM AC, Ana Sierra MD, 40 mg at 03/21/23 0434 polyethylene glycol (PEG) 3350 (Miralax) packet 17 g, 17 g, Oral, Daily PRN, Ana Sierra MD, 17 g at 03/20/23 0811 risperiDONE (RisperDAL) tablet 3 mg, 3 mg, Oral, Nightly, Ana Sierra MD, 3 mg at 03/20/231999 senna-docusate sodium (Senokot-S) 8.6-50 MG tablet 2 tablet, 2 tablet, Oral, BID, Kevin Grimes DO, 2 tablet at 03/21/23 0800 tamsulosin (Flomax) 24 hr capsule 0.4 mg, 0.4 mg, Oral, Daily, Ana Sierra MD, 0.4 mg at 03/21/23 08 traZODone (Desyrel) tablet 100 mg, 100 mg, Oral, Nightly, Fran Bowers MD, 100 mg at 03/20/231999 Allergies Allergen Reactions Benztropine Disorientation and loss of muscle control Diphenhydramine Disorientation Nsaids CKD Stage 3 Other Anticholinergics: cause disorientation and loss of muscle control Vitals: 03/20/23 2307 03/21/23 0325 03/21/23 0726 03/21/23 1114 BP: (!) 149/92 (!) 147/94 (!) 167/100 (!) 175/98 BP Location: Left arm Left arm Left arm Left arm Patient Position: Lying Lying Pulse: 54 59 61 54 Resp: 18 16 20 20 Temp: 36.1 C (97 F) 36.7 C (98.1 F) 36.4 C (97.6 F) 36.6 C (97.9 F) TempSrc: Temporal Temporal Temporal Temporal SpO2: 99% 97% 95% 100% Weight: Height: No results found for this or any previous visit (from the past 48 hour(s)). Assessment Delirium, resolving, polypharmacy Bipolar disorder Plan Medications as ordered. To ECF as able. Physical Therapy Facility/Department: 5W Physical Therapy Initial Evaluation NAME: Jessy Mckeon : 1965 Date of Service: 03/21/2023 Discharge Recommendations: IP Rehab PT Equipment Recommendations Equipment Needed: No Assessment Requires PT Follow-Up: Yes Assessment: PT's greatest concern with pt is functional safety. Pt appears to move frequently before she has fully completed previous activity. This is most witnessed on Sit to stand where pt attempts to ambulate before she has completed hip extn to stance. Pt with multiple cues to focus on immediate task. Pt states her goal is to go to [place] [facility]. From a physical perspective, feel rehab-level PT is appropriate as long as pt is able to maintain cognitive focus. Performance Deficits/Impairments: Decreased safe awareness, Decreased strength, Increased pain, Decreased posture, Decreased balance, Decreased functional mobility Decision Making: Medium Complexity Activity Tolerance Activity Tolerance: Patient limited by fatigue, Patient limited by pain, Treatment limited secondary to medical complications (free text), Patient limited by endurance Patient Diagnosis(es): The primary encounter diagnosis was Urinary tract infection without hematuria, site unspecified. Diagnoses of Renal insufficiency, Altered mental status, unspecified altered mental status type, and Chronic schizoaffective disorder (HCC) were also pertinent to this visit. has a past medical history of Acid reflux, Anxiety, Arthritis, Asperger syndrome, Bipolar disorder (HCC), Chronic kidney disease, Chronic pain, Depression, Edema of both legs, GERD (gastroesophageal reflux disease), Hemorrhoids, Hyperlipidemia, Hypertension, Hypothyroidism, Iron (Fe) deficiency anemia, Nephrogenic diabetes insipidus (HCC), Pain management, Retention of urine, unspecified, Sciatica, SOB (shortness of breath), Type II or unspecified type diabetes mellitus without mention of complication, not stated as uncontrolled (HCC), and Urinary incontinence. has a past surgical history that includes Bladder tumor excision (2008); Upper gastrointestinal endoscopy (03/28/2018); Colonoscopy (03/28/2018); Back surgery; Colon surgery; and Cholecystectomy. Restrictions Restrictions/Precautions Restrictions/Precautions: Fall Risk, General Precautions Required Braces or Orthoses?: No Vision/Hearing Vision: (very thick lensed glasses, but with them, she is able to identify buttons automation/controls manager light.) Hearing: Functional/adequate for paticipation in therapy Cognition/Orientation Cognition Comment: Pt frequently jumps topics. Needs cues to reiterate rules about not getting up without assist (purposefully left FWW out of pt's room) Overall Orientation Status: (oriented to self and location, not specific date. Pt understands her function was declining at home.) Subjective General Chart Reviewed: Yes Patient Assessed for Rehabilitation Services: Yes Additional Pertinent Hx: Bipolar disorder, Asperger's, CKD 4 Family / Caregiver Present: No Diagnosis: Metabolic encephalopathy due to UTI. Follows Commands: Impaired (very inconsistent-at time pt follows quite readily-other times, pt requires frequent cues (often for safety purposes)) Subjective Subjective: Pt comments on being very cold. Initially she was going to refuse therapy, but when therapy offered to obtain a second gown, she was willing. Notes she doesn't like having orders barked at her. States she always has pain and is currently wearing a transdermal patch over chest. States she is hoping to go to [place]. Pt notes [place] [facility] [place] really amb[place]-asks if we could go to bathroom to "poo-poo". (pt states she has not gone in a while, RN notes she had BM earlier today). Pt acknowledges that her function has declined steadily over past three months to where she just wanted to lie down a lot. Patient Stated Goal: go to [facility] to walk better Social/Functional History Social/Functional History Additional Comments: Lives at [facility]--states she has two rollators -one wider for every day use and one narrower for when she leaves. Most days, she goes to dining room for meals. Pt notes if she were just wearing a nightgown, she could dress self, but if she were wearing pants and shoes, she would need some help. Pt notes she uses seat in shower. Objective Observation/Palpation Posture: Fair Observation: numerous arthritic deformities in fingers--most notably Z deformity in sagittal plane on L 5th and R 3rd and 4th with marked ABD at DIP (struggles to ADD digits at MCP as well) AROM RLE (degrees) RLE General AROM: LAQ to 0 but compensates with trunk extn and hip flex to only approx 75 deg. DF 5 deg, Hip ABD 15 deg AROM LLE (degrees) LLE General AROM: LAQ to 0 but compensates with trunk extn and hip flex to only approx 75 deg. DF 5 deg, Hip ABD 15 deg Strength Other Other: damian DF 3-/5, damian PF 4/5, knee extn 4-/5 damian, Hip extn isometrics fair-, ABD fair+ (no significant R vs. L difficulty noted) Sensation Overall Sensation Status: (pt lacked focus to obtain clear understanding if pt has sensation issues--based on reaction, do not believe she does, but test inconclusive.) Bed mobility Supine to Sit: Modified independent Scooting: Modified independent Comment: used rails--note at end of session, pt noted she wanted to lie down as opposed to be in chair, but then once EOB, she refused to lie down (endorsed she struggles to elevate her LEs over EOB) Transfers Sit to Stand: Minimal Assistance Stand to sit: Minimal Assistance Comment: toilet transfer min--appears that transfer is rapid and twice pt is reaching for device before she physically completes hip extn. Ambulation Ambulation: Yes Ambulation 1 Surface 1: Level tile Device 1: Rolling walker Assistance 1: Moderate assistance Distance (ft) 1: 16'x2 (to and from bathroom) Comments 1: Widened MALDONADO (intermalleolar distance approx 15")--lacks focus resulting in slightly posterior pelvis. Pt performs turns rapidly leading to exaggerated (and unsafe) weight shifts. Balance Sitting - Static: Good, - Sitting - Dynamic: Fair, + Standing - Static: Fair Standing - Dynamic: Fair, - Plan Times per Week: 3-5 Plan Weeks: 2 Current Treatment Recommendations: Strengthening, ROM, Balance Training, Functional Mobility Training, Transfer Training, Gait Training, Endurance Training, Patient/Caregiver Education & Training, Safety Education & Training, Home Exercise Program Safety Safety Devices Safety Devices in Place: Yes Type of Devices: Patient left seated EOB, Call light within reach, Nurse notified (pt asked to lie down, then once sitting EOB would not lie down immediately) Outcomes Score AM-PAC Score AM-PAC Inpatient Mobility Raw Score (No Stairs) : 16 Goals Encounter Problems Encounter Problems (Active) Balance Patient will maintain static standing balance for 2 minutes with supervision in order to demonstrate decreased risk of falling. Start: 03/21/23 Expected End: 04/04/23 Mobility Patient will ambulate 100 feet with CGA and device in order to improve safety and independence with mobility. Start: 03/21/23 Expected End: 04/04/23 Transfers Patient will complete sit to stand transfer with supervision to device in order to improve safety and prepare for out of bed mobility. Start: 03/21/23 Expected End: 04/04/23 Education Education Given To: Patient Education Provided: PT Role, Plan of Care Education Method: Verbal Education Outcome: Verbalized understanding Skilled Clinical Factors: discussed safety and recall with RN Therapy Time Individual Co-treatment Time In 1552 Time Out 1616 Minutes 24 Patient s Physical Therapy Plan of Care supervision is transferred to [facility] Rehab Department Physical Therapist. Obed Solis PT Hospitalist Progress Note - [facility] Acute [facility] ([facility] 03/21/2023 12:52 PM Subjective and Objective: Admit Date: 03/16/2023 PCP: Edith Pierce MD Chief Complaint Patient presents with Altered Mental Status Adult diet Regular; Low Sodium (2 gm) I/O last 3 completed shifts: In: - (0 mL/kg) Out: 2550 (22.5 mL/kg) [Urine:2550 (0.6 mL/kg/hr)] Weight: 113.2 kg @IODETAILS@ @[id number]@ Medications: buprenorphine, 1 patch, TransDERmal, Weekly divalproex, 250 mg, Oral, TID DULoxetine, 60 mg, Oral, Daily heparin, 5,000 Units, SubCUTAneous, 3 times per day lamoTRIgine, 100 mg, Oral, Nightly levothyroxine, 175 mcg, Oral, Daily metoprolol tartrate, 100 mg, Oral, BID pantoprazole, 40 mg, Oral, qAM AC risperiDONE, 3 mg, Oral, Nightly senna-docusate sodium, 2 tablet, Oral, BID tamsulosin, 0.4 mg, Oral, Daily traZODone, 100 mg, Oral, Nightly No results for input(s): WBC, HGB, PLT in the last 72 hours. No results for input(s): NA, K, CL, CO2, BUN, CREATININE, GLUCOSE in the last 72 hours. No results for input(s): AST, ALT, BILITOT, ALKPHOS in the last 72 hours. No lab exists for component: ALB No results found for: TRIG, HDL, LDLCALC, CHOL No results found for: PHART, PO2ART, [id number] No results for input(s): INR in the last 72 hours. No results for input(s): CKTOTAL, CKMB, TROPONINI in the last 72 hours. No results for input(s): DDIMER in the last 72 hours. No results found for: HGBA1C No results found for: TSH Urine Culture: Results for orders placed or performed during the hospital encounter of 03/16/23 Urine culture Specimen: Urine, Clean Catch Result Value Ref Range Urine Culture >100,000 CFU/mL Klebsiella pneumoniae (A) Urine Culture (A) 50,000-90,000 CFU/mL Streptococcus anginosus (anginosus group) Susceptibility Klebsiella pneumoniae - BROTH MICRODILUTION Amoxicillin / Clavulanate <=2 Susceptible ug/ml Ampicillin >=32 Resistant ug/ml Ampicillin / Sulbactam 4 Susceptible ug/ml Aztreonam <=1 Susceptible ug/ml Cefazolin <=4 Susceptible ug/ml Cefepime <=1 Susceptible ug/ml Ceftriaxone <=1 Susceptible ug/ml Ciprofloxacin <=0.25 Susceptible ug/ml Gentamicin <=1 Susceptible ug/ml Meropenem <=0.25 Susceptible ug/ml Nitrofurantoin 64 Intermediate ug/ml Piperacillin / Tazobactam <=4 Susceptible ug/ml Trimethoprim / Sulfamethoxazole <=20 Susceptible ug/ml Objective: Vitals: BP (!) 175/98 (BP Location: Left arm) Pulse 54 Temp 36.6 C (97.9 F) (Temporal) Resp 20 Ht 5' 2" (1.575 m) Wt 249 lb 8 oz (113 kg) SpO2 100% BMI 45.63 kg/m Pulse Ox: SpO2 Av.2 % Min: 95 % Max: 100 % Supplemental O2: Internal Course: no complaints, looking to go to facility [place] GENERAL: calm, alert, baseline mentation CARDIOVASCULAR: regular, no extra heart sounds RESPIRATORY: good breath sounds, no wheezes ABDOMEN: non-tender EXTREMITIES: no LE wounds or acute pathology CHRONIC ANATOMY/TUBES/LINES: N/A Running Summary, Assessment, and Plan Jessy Mckeon is a 58 y.o. female with PMH of Bipolar, Depression, Anxiety, Asperger syndrome, CKD 4, Hyponatremia, and Hypothyroidism who presented with Chief Complaint of AMS. ED VSS. Na 134, Cr 3, Hgb 10.8, Valproic acid 67, and UA was weakly positive for UTI. Urine culture obtained and she was started on Rocephin. Urine tox negative. Head CT negative for acute pathology. Admitted for further workup. Psych consult and adjusted medications, patient had much improved mentation follow these changes. Urine culture positive for Klebsiella susceptible to Rocephin and she completed a 3 day course. Patient medically stable for discharge pending dispo. #AMS, improving #Metabolic encephalopathy -2/2 to medications and UTI -Urine tox negative -Thyroid function and Ammonia WNL -Consulted Psych, known to Dr. Bowers -AMS improved with UTI treatment and medication adjustments #Bipolar #Depression #Anxiety #Asperger syndrome -Has undergone ECT -Continue home Depakote, Cymbalta, Risperdal, Trazodone, and PRN Klonopin -Does have 20 mcg/hr Butran patch on abdomen -Valproic acid is 67 -OARRS reviewed: Klonopin and Butrans patch -Psych adjusting medications #Chronic pain -Confirmed Butran 20 mcg/hr qWeek on OARRS -Discussed with Dr. Bowers 03/20, he doesn't prescribe Butran patches, also discussed with Addiction medicine who declined to prescribe, acute pain will not prescribe either -Dr. Jorge Gonasles, [address] [place] [address]; prescribes outpatient -Patient may have more at home?? #UTI, treated -Completed 3 days of IV Rocephin on 03/18 -Culture growing Klebsiella susceptible to Rocephin #Elevated Cr, improving #CKD 4 #Hyponatremia -Baseline Cr ~ 2.5 -Fluids stopped 03/18 #Low TSH -Free T4 1.74 #Asymptomatic bradycardia while sleeping -Monitor -Repeat EKG showed sinus kisha #Anemia -Had anemia workup in September 2022 that ruled out iron deficiency #Hypothyroidism -Continue home Synthroid #HTN -Continue home Lopressor #Urinary retention -Continue home Flomax #Body mass index is 45.73 kg/m ., BMI Classification: Body mass index is 45.73 kg/m . Morbidly Obese (>40.0) #DVT Prophylaxis -Heparin SQ #Disposition: Came from independent living, requesting SNF vs. Acute Rehab #Barriers to discharge: medically stable for discharge pending dispo, awaiting insurance auth/precert, will need Butran 20 mg/hr patch if accepted to facility, I am unable to prescribe buprenorphine; Klonopin script on chart Code status: Full Code Dr. Kevin Reeves Hospitalist Time spent: 35 minutes Has at least of one of these; Number and Complexity of Problems Addressed at the Encounter: -1 or more chronic illnesses with exacerbation, progression, or side effects of treatment -2 or more stable, chronic illnesses -1 acute illness with systemic symptoms -1 acute, complicated injury Risk of Complications and/or Morbidity or Mortality of Patient Management: -Prescription drug management Hospitalist Progress Note - [facility] - [facility] [place] [place] 03/20/2023 8:41 AM Subjective and Objective: Admit Date: 03/16/2023 PCP: Edith Pierce MD Chief Complaint Patient presents with Altered Mental Status Adult diet Regular; Low Sodium (2 gm) I/O last 3 completed shifts: In: 550 (4.9 mL/kg) [P.O.:550] Out: 1500 (13.3 mL/kg) [Urine:1500 (0.4 mL/kg/hr)] Weight: 113.2 kg @IODETAILS@ @[id number]@ Medications: divalproex, 250 mg, Oral, TID DULoxetine, 60 mg, Oral, Daily heparin, 5,000 Units, SubCUTAneous, 3 times per day lamoTRIgine, 100 mg, Oral, Nightly levothyroxine, 175 mcg, Oral, Daily metoprolol tartrate, 100 mg, Oral, BID [START ON 04/01/2023] Non-Formulary Medication, 20 mcg/hr, TransDERmal, Weekly pantoprazole, 40 mg, Oral, qAM AC polyethylene glycol (PEG) 3350, 17 g, Oral, Daily risperiDONE, 3 mg, Oral, Nightly senna-docusate sodium, 2 tablet, Oral, BID tamsulosin, 0.4 mg, Oral, Daily traZODone, 100 mg, Oral, Nightly Recent Labs 03/18/23 0259 WBC 5.0 HGB 9.8* PLT 186 Recent Labs 03/18/23 0259 NA 135 K 5.1 CL 108* CO2 24 BUN 20* CREATININE 2.49* GLUCOSE 79 No results for input(s): AST, ALT, BILITOT, ALKPHOS in the last 72 hours. No lab exists for component: ALB No results found for: TRIG, HDL, LDLCALC, CHOL No results found for: PHART, PO2ART, [id number] No results for input(s): INR in the last 72 hours. No results for input(s): CKTOTAL, CKMB, TROPONINI in the last 72 hours. No results for input(s): DDIMER in the last 72 hours. No results found for: HGBA1C No results found for: TSH Urine Culture: Results for orders placed or performed during the hospital encounter of 03/16/23 Urine culture Specimen: Urine, Clean Catch Result Value Ref Range Urine Culture >100,000 CFU/mL Klebsiella pneumoniae (A) Urine Culture (A) 50,000-90,000 CFU/mL Streptococcus anginosus (anginosus group) Susceptibility Klebsiella pneumoniae - BROTH MICRODILUTION Amoxicillin / Clavulanate <=2 Susceptible ug/ml Ampicillin >=32 Resistant ug/ml Ampicillin / Sulbactam 4 Susceptible ug/ml Aztreonam <=1 Susceptible ug/ml Cefazolin <=4 Susceptible ug/ml Cefepime <=1 Susceptible ug/ml Ceftriaxone <=1 Susceptible ug/ml Ciprofloxacin <=0.25 Susceptible ug/ml Gentamicin <=1 Susceptible ug/ml Meropenem <=0.25 Susceptible ug/ml Nitrofurantoin 64 Intermediate ug/ml Piperacillin / Tazobactam <=4 Susceptible ug/ml Trimethoprim / Sulfamethoxazole <=20 Susceptible ug/ml Objective: Vitals: BP (!) 150/97 (BP Location: Right arm) Pulse 57 Temp 36.2 C (97.2 F) (Temporal) Resp 20 Ht 5' 2" (1.575 m) Wt 249 lb 8 oz (113 kg) SpO2 97% BMI 45.63 kg/m Pulse Ox: SpO2 Av.5 % Min: 96 % Max: 100 % Supplemental O2: Internal Course: no complaints, looking to go to facility at [place] GENERAL: calm, alert, baseline mentation CARDIOVASCULAR: regular, no extra heart sounds RESPIRATORY: good breath sounds, no wheezes ABDOMEN: non-tender EXTREMITIES: no LE wounds or acute pathology CHRONIC ANATOMY/TUBES/LINES: N/A Running Summary, Assessment, and Plan Jessy Mckeon is a 58 y.o. female with PMH of Bipolar, Depression, Anxiety, Asperger syndrome, CKD 4, Hyponatremia, and Hypothyroidism who presented with Chief Complaint of AMS. ED VSS. Na 134, Cr 3, Hgb 10.8, Valproic acid 67, and UA was weakly positive for UTI. Urine culture obtained and she was started on Rocephin. Urine tox negative. Head CT negative for acute pathology. Admitted for further workup. Psych consult and adjusted medications, patient had much improved mentation follow these changes. Urine culture positive for Klebsiella susceptible to Rocephin and she completed a 3 day course. Patient medically stable for discharge pending dispo. #AMS, improving #Metabolic encephalopathy -2/2 to medications and UTI -Urine tox negative -Thyroid function and Ammonia WNL -Consulted Psych, known to Dr. Bowers -AMS improved with UTI treatment and medication adjustments #Bipolar #Depression #Anxiety #Asperger syndrome -Has undergone ECT -Continue home Depakote, Cymbalta, Risperdal, Trazodone, and PRN Klonopin -Does have 20 mcg/hr Butran patch on abdomen -Valproic acid is 67 -OARRS reviewed: Klonopin and Butrans patch -Psych adjusting medications #Chronic pain -Confirmed Butran 20 mcg/hr qWeek on OARRS -Discussed with Dr. Bowers 03/20, he doesn't prescribe Butran patches, also discussed with Addiction medicine who declined to prescribe, acute pain will not prescribe either -Dr. Jorge Gonsales, [address] [facility] [place] [address]; prescribes outpatient -Patient may have more at home?? #UTI, treated -Urine culture pending -Completed 3 days of IV Rocephin on 03/18 -Culture growing Klebsiella susceptible to Rocephin #Elevated Cr, improving #CKD 4 #Hyponatremia -Baseline Cr ~ 2.5 -Fluids stopped 03/18 #Low TSH -Free T4 1.74 #Asymptomatic bradycardia while sleeping -Monitor -Repeat EKG showed sinus kisha #Anemia -Had anemia workup in September 2022 that ruled out iron deficiency #Hypothyroidism -Continue home Synthroid #HTN -Continue home Lopressor #Urinary retention -Continue home Flomax #Body mass index is 45.73 kg/m ., BMI Classification: Body mass index is 45.73 kg/m . Morbidly Obese (>40.0) #DVT Prophylaxis -Heparin SQ #Disposition: Came from independent living, requesting SNF vs. Acute Rehab, discussed with TCC, PT/OT pending #Barriers to discharge: medically stable for discharge pending dispo, will need Butran 20 mg/hr patch if accepted to facility, I am unable to prescribe buprenorphine; Klonopin script on chart Code status: Full Code Dr. Kevin Grimes [facility] Hospitalist Time spent: 40 minutes Has at least of one of these; Number and Complexity of Problems Addressed at the Encounter: -1 or more chronic illnesses with exacerbation, progression, or side effects of treatment -2 or more stable, chronic illnesses -1 acute illness with systemic symptoms -1 acute, complicated injury Risk of Complications and/or Morbidity or Mortality of Patient Management: -Prescription drug management Hospitalist Progress Note - [facility] [place] [place] 03/19/2023 9:01 AM Subjective and Objective: Admit Date: 03/16/2023 PCP: Edith Pierce MD Chief Complaint Patient presents with Altered Mental Status Adult diet Regular; Low Sodium (2 gm) I/O last 3 completed shifts: In: 1260 (11.1 mL/kg) [P.O.:1260] Out: 3450 (30.5 mL/kg) [Urine:3450 (0.8 mL/kg/hr)] Weight: 113.2 kg @IODETAILS@ @[id number]@ Medications: divalproex, 250 mg, Oral, TID DULoxetine, 60 mg, Oral, Daily heparin, 5,000 Units, SubCUTAneous, 3 times per day lamoTRIgine, 100 mg, Oral, Nightly levothyroxine, 175 mcg, Oral, Daily metoprolol tartrate, 100 mg, Oral, BID [START ON 04/01/2023] Non-Formulary Medication, 20 mcg/hr, TransDERmal, Weekly pantoprazole, 40 mg, Oral, qAM AC polyethylene glycol (PEG) 3350, 17 g, Oral, Daily risperiDONE, 3 mg, Oral, Nightly senna-docusate sodium, 2 tablet, Oral, BID tamsulosin, 0.4 mg, Oral, Daily traZODone, 100 mg, Oral, Nightly Recent Labs 03/16/23184603/17/235 03/18/23 0259 WBC 6.3 5.9 5.0 HGB 10.8* 10.2* 9.8* PLT 181 167 186 Recent Labs 03/16/23 18403/17/23 0445 03/18/23 0259 NA 134* 137 135 K 4.7 4.3 5.1 CL 101 107 108* CO2 24 24 24 BUN 22* 20* 20* CREATININE 3.07* 2.83* 2.49* GLUCOSE 107* 110* 79 Recent Labs 03/16/231846 AST 26 ALT 15 BILITOT 0.3 ALKPHOS 74 No results found for: TRIG, HDL, LDLCALC, CHOL No results found for: PHART, PO2ART, [id number] No results for input(s): INR in the last 72 hours. Recent Labs 03/16/231846 TROPONINI <0.012 No results for input(s): DDIMER in the last 72 hours. No results found for: HGBA1C Lab Results Component Value Date TSH 0.056 (L) 03/17/2023 Urine Culture: Results for orders placed or performed during the hospital encounter of 03/16/23 Urine culture Specimen: Urine, Clean Catch Result Value Ref Range Urine Culture >100,000 CFU/mL Klebsiella pneumoniae (A) Susceptibility Klebsiella pneumoniae - BR[facility] MICRODILUTION Amoxicillin / Clavulanate <=2 Susceptible ug/ml Ampicillin >=32 Resistant ug/ml Ampicillin / Sulbactam 4 Susceptible ug/ml Aztreonam <=1 Susceptible ug/ml Cefazolin <=4 Susceptible ug/ml Cefepime <=1 Susceptible ug/ml Ceftriaxone <=1 Susceptible ug/ml Ciprofloxacin <=0.25 Susceptible ug/ml Gentamicin <=1 Susceptible ug/ml Meropenem <=0.25 Susceptible ug/ml Nitrofurantoin 64 Intermediate ug/ml Piperacillin / Tazobactam <=4 Susceptible ug/ml Trimethoprim / Sulfamethoxazole <=20 Susceptible ug/ml Objective: Vitals: BP (!) 151/83 (BP Location: Left arm, Patient Position: Lying) Pulse 73 Temp 36.7 C (98.1 F) (Temporal) Resp 18 Ht 5' 2" (1.575 m) Wt 249 lb 8 oz (113 kg) SpO2 98% BMI 45.63 kg/m Pulse Ox: SpO2 Av.5 % Min: 97 % Max: 100 % Supplemental O2: Internal Course: pt would like to go to SNF vs. Rehab at [place] GENERAL: comfortable without complaints CARDIOVASCULAR: RRR no murmurs RESPIRATORY: clear without wheezes ABDOMEN: non-distended, soft EXTREMITIES: moving all spontaneously CHRONIC ANATOMY/TUBES/LINES: N/A Running Summary, Assessment, and Plan Jessy Mckeon is a 58 y.o. female with PMH of Bipolar, Depression, Anxiety, Asperger syndrome, CKD 4, Hyponatremia, and Hypothyroidism who presented with Chief Complaint of AMS. ED VSS. Na 134, Cr 3, Hgb 10.8, Valproic acid 67, and UA was weakly positive for UTI. Urine culture obtained and she was started on Rocephin. Urine tox negative. Head CT negative for acute pathology. Admitted for further workup. Psych consult and adjusted medications, patient had much improved mentation follow these changes. Urine culture positive for Klebsiella susceptible to Rocephin and she completed a 3 day course. Patient medically stable for discharge pending dispo #AMS, improving -2/2 to Psych and UTI -Urine tox negative -Thyroid function and Ammonia WNL -Consulted Psych, known to Dr. Bowers #Bipolar #Depression #Anxiety #Asperger syndrome -Has undergone ECT -Continue home Depakote, Cymbalta, Risperdal, Trazodone, and PRN Klonopin -Does have 20 mcg/hr Butran patch on abdomen -Valproic acid is 67 -OARRS reviewed: Klonopin and Butrans patch -Psych adjusting medications #UTI, treated -Urine culture pending -Completed 3 day so IV Rocephin on 03/18 -Culture growing Klebsiella susceptible to Rocephin #Elevated Cr, improving #CKD 4 #Hyponatremia -Baseline Cr ~ 2.5 -Fluids stopped 03/18 #Low TSH -Free T4 1.74 #Asymptomatic bradycardia while sleeping -Monitor -Repeat EKG showed sinus kisha #Anemia -Had anemia workup in September 2022 that ruled out iron deficiency #Hypothyroidism -Continue home Synthroid #HTN -Continue home Lopressor #Urinary retention -Continue home Flomax #Body mass index is 45.73 kg/m ., BMI Classification: Body mass index is 45.73 kg/m . Morbidly Obese (>40.0) #DVT Prophylaxis -Heparin SQ #Disposition: Came from independent living, requesting SNF vs. Acute Rehab, discussed with TCC, PT/OT pending #Barriers to discharge: medically stable for discharge pending dispo Code status: Full Code Dr. Kevin Grimes [facility] Hospitalist Time spent: 41 minutes Has at least of one of these; Number and Complexity of Problems Addressed at the Encounter: -1 or more chronic illnesses with exacerbation, progression, or side effects of treatment -2 or more stable, chronic illnesses -1 acute illness with systemic symptoms -1 acute, complicated injury Risk of Complications and/or Morbidity or Mortality of Patient Management: -Prescription drug management Nutrition rescreen completed. Chart reviewed. Encourage P.O. intake as able. 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 Dietitian available upon request. AMANDA Burdick Hospitalist Progress Note - [facility] [place] [place] 03/18/2023 9:37 AM Subjective and Objective: Admit Date: 03/16/2023 PCP: Edith Pierce MD Chief Complaint Patient presents with Altered Mental Status Adult diet Regular; Low Sodium (2 gm) I/O last 3 completed shifts: In: 2428.3 (21.4 mL/kg) [P.O.:150; I.V.:1228.3 (10.8 mL/kg); IV Piggyback:1050] Out: 700 (6.2 mL/kg) [Urine:700 (0.2 mL/kg/hr)] Weight: 113.5 kg @IODETAILS@ @[id number]@ Medications: sodium chloride, 100 mL/hr, Last Rate: 100 mL/hr (03/17/23 1651) cefTRIAXone, 1,000 mg, IntraVENous, q24h divalproex, 250 mg, Oral, TID DULoxetine, 60 mg, Oral, Daily heparin, 5,000 Units, SubCUTAneous, 3 times per day lamoTRIgine, 100 mg, Oral, Nightly levothyroxine, 175 mcg, Oral, Daily metoprolol tartrate, 100 mg, Oral, BID [START ON 04/01/2023] Non-Formulary Medication, 20 mcg/hr, TransDERmal, Weekly pantoprazole, 40 mg, Oral, qAM AC polyethylene glycol (PEG) 3350, 17 g, Oral, Daily risperiDONE, 3 mg, Oral, Nightly senna-docusate sodium, 2 tablet, Oral, BID tamsulosin, 0.4 mg, Oral, Daily traZODone, 100 mg, Oral, Nightly Recent Labs 03/16/23184603/17/235 03/18/23 0259 WBC 6.3 5.9 5.0 HGB 10.8* 10.2* 9.8* PLT 181 167 186 Recent Labs 03/16/23184603/17/235 03/18/23 025 NA 134* 137 135 K 4.7 4.3 5.1 CL 101 107 108* CO2 24 24 24 BUN 22* 20* 20* CREATININE 3.07* 2.83* 2.49* GLUCOSE 107* 110* 79 Recent Labs 03/16/231846 AST 26 ALT 15 BILITOT 0.3 ALKPHOS 74 No results found for: TRIG, HDL, LDLCALC, CHOL No results found for: PHART, PO2ART, [id number] No results for input(s): INR in the last 72 hours. Recent Labs 03/16/231846 TROPONINI <0.012 No results for input(s): DDIMER in the last 72 hours. No results found for: HGBA1C Lab Results Component Value Date TSH 0.056 (L) 03/17/2023 Urine Culture: No results found for this or any previous visit. Objective: Vitals: BP (!) 153/91 (BP Location: Left arm, Patient Position: Lying) Pulse 54 Temp 36.5 C (97.7 F) (Temporal) Resp 16 Ht 5' 2" (1.575 m) Wt 250 lb 3.2 oz (113 kg) SpO2 97% BMI 45.76 kg/m Pulse Ox: SpO2 Av.1 % Min: 96 % Max: 100 % Supplemental O2: Internal Course: asymptomatic bradycardia while sleeping, much improved mentation today after med adjustments by Psych GENERAL: alert without acute distress CARDIOVASCULAR: no rubs, no palpitations RESPIRATORY: no crackles, not using accessory muscles ABDOMEN: soft, no acute abd pain EXTREMITIES: no edema CHRONIC ANATOMY/TUBES/LINES: N/A Running Summary, Assessment, and Plan Jessy Mckeon is a 58 y.o. female with PMH of Bipolar, Depression, Anxiety, Asperger syndrome, CKD 4, Hyponatremia, and Hypothyroidism who presented with Chief Complaint of AMS. ED VSS. Na 134, Cr 3, Hgb 10.8, Valproic acid 67, and UA was weakly positive for UTI. Urine culture obtained and she was started on Rocephin. Urine tox negative. Head CT negative for acute pathology. Admitted for further workup. Psych consult and adjusted medications, patient had much improved mentation follow these changes. Likely DC fluids Tuesday #AMS -Suspect 2/2 Psych etiology -A&O x 2 with poor insight -Urine tox negative -Thyroid function and Ammonia WNL -Consulted Psych, known to Dr. Bowers #Bipolar #Depression #Anxiety #Asperger syndrome -Has undergone ECT -Continue home Depakote, Cymbalta, Risperdal, Trazodone, and PRN Klonopin -Does have 20 mcg/hr Butran patch on abdomen -Valproic acid is 67 -OARRS reviewed: Klonopin and Butrans patch -Psych adjusting medications #Possible UTI -Urine culture pending -IV Rocephin Day #3 (03/18) then stop -Follow cultures #Elevated Cr, improving #CKD 4 #Hyponatremia -Baseline Cr ~ 2.5 -Fluids stopped 03/18 #Low TSH -Free T4 1.74 #Asymptomatic bradycardia while sleeping -Monitor -Repeat EKG #Anemia -Had anemia workup in September 2022 that ruled out iron deficiency #Hypothyroidism -Continue home Synthroid #HTN -Continue home Lopressor #Urinary retention -Continue home Flomax #Body mass index is 45.73 kg/m ., BMI Classification: Body mass index is 45.73 kg/m . Morbidly Obese (>40.0) #DVT Prophylaxis -Heparin SQ #Disposition: TBD #Barriers to discharge: likely stable for [place] next 24 hours Code status: Full Code Dr. Kevin Grimes [facility] Hospitalist Time spent: 42 minutes Has at least of one of these; Number and Complexity of Problems Addressed at the Encounter: -1 or more chronic illnesses with exacerbation, progression, or side effects of treatment -2 or more stable, chronic illnesses -1 acute illness with systemic symptoms -1 acute, complicated injury Risk of Complications and/or Morbidity or Mortality of Patient Management: -Prescription drug management Jessy Mckeon is a 58 y.o. female Chief Complaint Patient presents with Altered Mental Status Patient seen briefly, she is sleeping, did rouse briefly to voice, could not participate in interview. Respirations are even and unlabored, patient is in no distress, with stable vital signs. Patient lives alone in a rent-controlled apartment complex. She receives medications that are pre-packaged to facilitate correct dosing, but in recent weeks has had less supervision available to her (mother had health problems and was not available to vvisit and check on patient). My office received two requests for early refills of medications, the latest of which was denied, as medications were delivered by her pharmacy provider (see 03/10, 03/09, and 03/04 telephone encounters) Vitals: 03/17/23 0411 03/17/23 0756 03/17/23 1124 03/17/23 1553 BP: (!) 159/90 (!) 153/87 (!) 157/99 134/81 BP Location: Left arm Left arm Left arm Left arm Patient Position: Lying Lying Lying Lying Pulse: 69 64 59 56 Resp: 17 16 16 16 Temp: 36.4 C (97.5 F) 36.1 C (97 F) 36.6 C (97.8 F) 36.4 C (97.5 F) TempSrc: Temporal Temporal Temporal Temporal SpO2: 100% 99% 100% 98% Weight: Height: Medications reviewed. Current Facility-Administered Medications: acetaminophen (Tylenol) tablet 650 mg, 650 mg, Oral, q6h PRN OR acetaminophen (Tylenol) suppository 650 mg, 650 mg, Rectal, q6h PRN, Ana Sierra MD cefTRIAXone (Rocephin) 1,000 mg in sodium chloride 0.9 % 50 mL IVPB Mini-Bag Plus, 1,000 mg, IntraVENous, q24h, Ana Sierra MD clonazePAM (KlonoPIN) tablet 0.5 mg, 0.5 mg, Oral, BID PRN, Ana Sierra MD divalproex (Depakote ER) 24 hr tablet 250 mg, 250 mg, Oral, TID, Ana Sierra MD, 250 mg at 03/17/23 1347 DULoxetine (Cymbalta) DR capsule 60 mg, 60 mg, Oral, Daily, Ana Sierra MD, 60 mg at 03/17/23 0817 heparin injection 5,000 Units, 5,000 Units, SubCUTAneous, 3 times per day, Ana Sierra MD, 5,000 Units at 03/17/23 1342 lamoTRIgine (LaMICtal) tablet 200 mg, 200 mg, Oral, Nightly, Ana Sierra MD levothyroxine (Synthroid, Levoxyl) tablet 175 mcg, 175 mcg, Oral, Daily, Ana Sierra MD, 175 mcg at 03/17/23 0448 metoprolol tartrate (Lopressor) tablet 100 mg, 100 mg, Oral, BID, Ana Sierra MD, 100 mg at 03/17/23 0817 [START ON 04/01/2023] Non-Formulary Medication, 20 mcg/hr, TransDERmal, Weekly, Kevin Grimes DO ondansetron ODT (Zofran-ODT) disintegrating tablet 4 mg, 4 mg, Oral, q8h PRN OR ondansetron (Zofran) injection 4 mg, 4 mg, IntraVENous, q6h PRN, Ana Sierra MD pantoprazole (ProtoNix) EC tablet 40 mg, 40 mg, Oral, qAM AC, Ana Sierra MD, 40 mg at 03/17/23 0448 polyethylene glycol (PEG) 3350 (Miralax) packet 17 g, 17 g, Oral, Daily PRN, Ana Sierra MD polyethylene glycol (PEG) 3350 (Miralax) packet 17 g, 17 g, Oral, Daily, Kevin Grimes DO, 17 g at 03/17/23 1051 risperiDONE (RisperDAL) tablet 3 mg, 3 mg, Oral, Nightly, Ana Sierra MD senna-docusate sodium (Senokot-S) 8.6-50 MG tablet 2 tablet, 2 tablet, Oral, BID, Kevin Grimes DO, 2 tablet at 03/17/23 1051 sodium chloride 0.9 % infusion, 100 mL/hr, IntraVENous, Continuous, Ana Sierra MD, Last Rate: 100 mL/hr at 03/17/23 1440, 100 mL/hr at 03/17/23 1440 tamsulosin (Flomax) 24 hr capsule 0.4 mg, 0.4 mg, Oral, Daily, Ana Sierra MD, 0.4 mg at 03/17/23 0817 traZODone (Desyrel) tablet 200 mg, 200 mg, Oral, Nightly, Ana Sierra MD Current Outpatient Medications Medication Instructions buprenorphine (Butrans) 15 MCG/HR 20 patches, TransDERmal, Once clonazePAM (KLONOPIN) 0.5 mg, Oral, 2 times daily PRN divalproex (DEPAKOTE ER) 250 mg, Oral, 3 times daily, Do not crush, chew, or split. DULoxetine (Cymbalta) [address] capsule TAKE 1 CAPSULE BY MOUTH DAILY Incontinence Supply Disposable (Depend Pant Extra Large) misc 1 each, Does not apply, 4 times daily lamoTRIgine (LaMICtal) 200 MG tablet TAKE 1 TABLET BY MOUTH NIGHTLY levothyroxine (SYNTHROID, LEVOXYL) 175 mcg, Oral, Daily metoprolol tartrate (Lopressor) 100 MG tablet take 1 tablet by mouth IN THE MORNING AND 1 TABLET BEFORE BEDTIME omeprazole (PriLOSEC) [address] capsule TAKE 1 CAPSULE BY MOUTH EVERY MORNING BEFORE BREAKFAST risperiDONE (RisperDAL) 3 MG tablet TAKE 2 TABLETS BY MOUTH NIGHTLY Selenium 200 MCG capsule TAKE 1 CAPSULE BY MOUTH AT 8PM tamsulosin (FLOMAX) 0.4 mg, Oral, Daily traZODone (Desyrel) 100 MG tablet TAKE 2 TABLETS BY MOUTH NIGHTLY Labs reviewed. Recent Results (from the past 48 hour(s)) ECG 12 lead Collection Time: 03/16/23 5:36 PM Result Value Ref Range Heart Rate 74 bpm QRSD Interval 103 ms QT Interval 394 ms QTC Interval 436 ms P English -13 degrees QRS English -2 degrees T Wave English 47 degrees CA Interval 174 ms Complete Urinalysis Collection Time: 03/16/23 6:17 PM Result Value Ref Range Color, Urine Light Yellow Lt. Yellow Clarity, Urine Clear Clear pH, Urine 6.0 5.0 - 8.0 pH Leukocytes, Urine 500 (A) Negative Devang/uL Nitrite, Urine Negative Negative Protein, Urine 100 (A) Negative mg/dL Glucose, Urine Normal Normal (<70) mg/dL Bilirubin, Urine Negative Negative mg/dL Ketones, Urine Negative Negative mg/dL Urobilinogen, Urine Normal Normal (0-1) mg/dL Blood, Urine Negative Negative mg/dL Volume, Urine 12 mL RBC, Urine 0-2 0 - 2 /HPF WBC, Urine 6-10 (A) 0 - 5 /HPF Squamous Epithelial, Urine 3-5 3 - 5 /HPF Bacteria, Urine Few (A) Negative /HPF Mucus, Urine Few Negative /LPF Amorphous Urates, Urine Few (A) Negative /HPF SPECIFIC GRAVITY OF URINE (NUMERIC) 1.005 1.005 - 1.030 Drug screen panel, emergency Collection Time: 03/16/23 6:17 PM Result Value Ref Range AMPHETAMINE SCREEN Negative BARBITURATES SCREEN Negative BENZODIAZEPINE SCREEN Negative COCAINE METAB. SCREEN Negative METHADONE SCREEN Negative OPIATES SCREEN Negative OXYCODONE SCREEN Negative PHENCYCLIDINE SCREEN Negative Comprehensive metabolic panel Collection Time: 03/16/23 6:47 PM Result Value Ref Range SODIUM 134 (L) 135 - 145 mmol/L POTASSIUM 4.7 3.5 - 5.1 mmol/L CHLORIDE 101 98 - 107 mmol/L CARBON DIOXIDE 24 22 - 30 mmol/L ANION GAP 8 3 - 13 mmol/L UREA NITROGEN 22 (H) 7 - 17 mg/dL CREATININE 3.07 (H) 0.52 - 1.04 mg/dL GLUCOSE 107 (H) 70 - 100 mg/dL CALCIUM 8.7 8.4 - 10.4 mg/dL AST (SGOT) 26 15 - 46 U/L ALT 15 0 - 34 U/L ALKALINE PHOSPHATASE 74 38 - 126 U/L ALBUMIN 3.7 3.5 - 5.0 g/dL BILIRUBIN, TOTAL 0.3 0.2 - 1.3 mg/dL TOTAL PROTEIN 7.2 6.3 - 8.2 g/dL eGFR 17.2 (L) >60.0 mL/min/1.73m*2 Troponin I Collection Time: 03/16/23 6:47 PM Result Value Ref Range TROPONIN I <0.012 0.000 - 0.034 ng/mL CBC auto differential Collection Time: 03/16/23 6:47 PM Result Value Ref Range Auto WBC 6.3 3.6 - 10.7 10*3/uL RBC 3.44 (L) 3.8 - 5.20 10*6/uL Hemoglobin 10.8 (L) 11.7 - 16.0 g/dL Hematocrit 33.2 (L) 35.0 - 47.0 % MCV 96.5 80.0 - 98.0 fL MCH 31.4 26.0 - 34.0 pg MCHC 32.5 32.0 - 36.0 % RDW 13.1 11.5 - 14.5 % Platelets 181 140 - 440 10*3/uL MPV 9.4 7.4 - 12.4 fL Neutrophils Relative 54.2 40.0 - 80.0 % Lymphocytes Relative 31.0 20.0 - 40.0 % Monocytes Relative 10.5 (H) 2.0 - 10.0 % Eosinophils Relative 3.7 1.0 - 6.0 % Basophils Relative 0.3 0.0 - 2.0 % Immature Grans % 0.3 (H) <=0.0 % Neutrophils Absolute 3.4 1.8 - 7.0 10*3/uL Lymphocytes Absolute 1.9 1.0 - 4.3 10*3/uL Monocytes Absolute 0.7 0.0 - 0.8 10*3/uL Eosinophils Absolute 0.2 0.0 - 0.5 10*3/uL Basophils Absolute 0.0 0.0 - 0.2 10*3/uL Immature Grans Absolute 0.0 <=0.0 10*3/uL Lactic acid, sepsis, with reflex if elevated Collection Time: 03/16/23 6:47 PM Result Value Ref Range LACTIC ACID 2.0 0.7 - 2.0 mmol/L Valproic acid level, total Collection Time: 03/17/23 12:04 AM Result Value Ref Range VALPROIC ACID 67 50 - 120 ug/mL T4, free Collection Time: 03/17/23 12:04 AM Result Value Ref Range FREE T4 1.74 0.78 - 2.19 ng/dL CBC auto differential Collection Time: 03/17/23 4:45 AM Result Value Ref Range Auto WBC 5.9 3.6 - 10.7 10*3/uL RBC 3.27 (L) 3.8 - 5.20 10*6/uL Hemoglobin 10.2 (L) 11.7 - 16.0 g/dL Hematocrit 31.8 (L) 35.0 - 47.0 % MCV 97.4 80.0 - 98.0 fL MCH 31.2 26.0 - 34.0 pg MCHC 32.0 32.0 - 36.0 % RDW 14.2 11.5 - 14.5 % Platelets 167 140 - 440 10*3/uL MPV 7.9 7.4 - 12.4 fL nRBC 0.2 0.0 - 2.0 /100 WBCs Neutrophils Relative 48.9 40.0 - 80.0 % Lymphocytes Relative 33.6 20.0 - 40.0 % Monocytes Relative 13.0 (H) 2.0 - 10.0 % Eosinophils Relative 4.2 1.0 - 6.0 % Basophils Relative 0.3 0.0 - 2.0 % Neutrophils Absolute 2.9 1.8 - 7.0 10*3/uL Lymphocytes Absolute 2.0 1.0 - 4.3 10*3/uL Monocytes Absolute 0.8 0.0 - 0.8 10*3/uL Eosinophils Absolute 0.2 0.0 - 0.5 10*3/uL Basophils Absolute 0.0 0.0 - 0.2 10*3/uL Basic metabolic panel Collection Time: 03/17/23 4:45 AM Result Value Ref Range SODIUM 137 135 - 145 mmol/L POTASSIUM 4.3 3.5 - 5.1 mmol/L CHLORIDE 107 98 - 107 mmol/L CARBON DIOXIDE 24 22 - 30 mmol/L UREA NITROGEN 20 (H) 7 - 17 mg/dL CREATININE 2.83 (H) 0.52 - 1.04 mg/dL GLUCOSE 110 (H) 70 - 100 mg/dL CALCIUM 8.2 (L) 8.4 - 10.4 mg/dL ANION GAP 5 3 - 13 mmol/L eGFR 19.0 (L) >60.0 mL/min/1.73m*2 TSH Collection Time: 03/17/23 4:45 AM Result Value Ref Range THYROID STIMULATING HORMONE 0.056 (L) 0.465 - 4.680 uIU/mL Assessment delirium Bipolar disorder versus schizoaffective disorder History of borderline personality disorder Polypharmacy, with recent mis-administration of home medications. UTI JOSE A History of nephrogenic diabetes insipidis, and SIADH associated with medications Plan Will decrease klonopin and decrease trazodone, decrease lamotrigene. Will return to complete interview 03/18/2023. documented in this encounter [facility] 03-23-2023 Note Formatting of this n ote might be different from the original. [employer] superintendent met with pt at bedside, pt is agreeable to [facility]. [facility] does not have an open bed at this time. Will plan to dc to [facility] once bed avail. Pt will need to provide own Butran patch. Will discuss with pt. [facility] 03-23-2023 Note Formatting of this n ote might be different from the original. [facility] school superintendent met with pt at bedside, pt is agreeable to [facility]. [facility] does not have an open bed at this time. Will plan to dc to [facility] once bed avail. Pt will need to provide own Butran patch. Will discuss with pt. [facility] 03-23-2023 Nurse Note Patient refusing to call and wait for help when ambulating between the bedside commode and bed. Patient was provided education on fall risks and safety. Patient refusing purwick. Bed alarm on. [facility] 03-22-2023 Plan of care note Problem: Knowledge Deficit Goal: Patient/family/caregiver demonstrates understanding of disease process, treatment plan, medications, and discharge instructions Outcome: Progressing Problem: Potential for Compromised Skin Integrity Goal: Skin Integrity is Maintained or Improved Outcome: Progressing Goal: Nutritional status is improving Outcome: Progressing Problem: Urinary Incontinence Goal: Perineal skin integrity is maintained or improved Outcome: Progressing T [facility] 03-22-2023 Note Formatting of this n ote is different from the original. Images from the original note were not included. Care Management Progress Note PT worked with pt yesterday rec rehab. Task sent to [facility] to send referral to [facility]. Met with pt and updated her on the referral. Pt is from [facility], wants to go to [facility]. Will discuss with Justyna Dove RN from [facility]. Pt has has been to rehab in the past. CM to follow. Discharge Milestones and Delays Expected Date/Time: 03/24/2023 Afternoon Disposition: Snf Facility Discharge Milestones Place discharge order Complete med reconciliation Case mgmt discharge readiness Clinical Stability Diagnsotic Workup Expected Discharge History Expected Date/Time Set By Reviewed At 03/24/2023 Afternoon Isabel Kevin RN 03/22/2023 8:32 AM referal to [facility] made today 03/22/2023." 03/21/2023 Afternoon Paul Anderson, DO 03/21/2023 12:52 PM 03/22/2023 SARANYA Marroquin 03/21/2023 9:32 AM 03/20/2023 Kevin Grimes, DO 03/20/2023 8:43 AM 03/20/2023 SARANYA Marroquin 03/18/2023 9:03 AM 03/18/2023 Ana Sierra MD 03/17/2023 4:21 AM 03/17/2023 Tyler Sawant MD 03/17/2023 4:06 AM 03/17/2023 Tyler Sawant MD 03/16/2023 9:20 PM Length of Stay (Days): 5 GMLOS: 3.8 T [facility] 03-22-2023 Note Formatting of this n ote is different from the original. Images from the original note were not included. Care Management Progress Note PT worked with pt yesterday rec IP rehab. Task sent to [facility] to send referral to [facility]. Met with pt and updated her on the referral. Pt is from [facility], wants to go to [facility]. Will discuss with Justyna Dove RN from [facility]. Pt has has been to rehab in the past. CM to follow. Discharge Milestones and Delays Expected Date/Time: 03/24/2023 Afternoon Disposition: Snf Facility Discharge Milestones Place discharge order Complete med reconciliation Case mgmt discharge readiness Clinical Stability Diagnsotic Workup Expected Discharge History Expected Date/Time Set By Reviewed At 03/24/2023 Afternoon Isabel Kevin RN 03/22/2023 8:32 AM referal to [facility] made today 03/22/2023." 03/21/2023 Afternoon Paul Andersno, DO 03/21/2023 12:52 PM 03/22/2023 Mayda Mcgowan, HEAD OF TRAINING AND DEVELOPMENT 03/21/2023 9:32 AM 03/20/2023 Kevin Grimes, DO 03/20/2023 8:43 AM 03/20/2023 Mayda Mcgowan, HEAD OF TRAINING AND DEVELOPMENT 03/18/2023 9:03 AM 03/18/2023 Ana Sierra MD 03/17/2023 4:21 AM 03/17/2023 Tyler Sawant MD 03/17/2023 4:06 AM 03/17/2023 Tyler Sawant MD 03/16/2023 9:20 PM Length of Stay (Days): 5 GMLOS: 3.8 T [facility] 03-22-2023 Note Formatting of this n ote might be different from the original. Referral placed to [facility] via [facility] per [facility] request. Await review and response regarding ability to accept. TCC notified. T [facility] 03-22-2023 Note Formatting of this n ote might be different from the original. Referral placed to [facility] via [facility] per T[facility] request. Await review and response regarding ability to accept. TCC notified. T [facility] 03-21-2023 Plan of care note Problem: Knowledge Deficit Goal: Patient/family/caregiver demonstrates understanding of disease process, treatment plan, medications, and discharge instructions Outcome: Progressing Problem: Potential for Compromised Skin Integrity Goal: Skin Integrity is Maintained or Improved Outcome: Progressing Goal: Nutritional status is improving Outcome: Progressing Problem: Urinary Incontinence Goal: Perineal skin integrity is maintained or improved Outcome: Progressing [facility] 03-21-2023 Hospital Discharge instructions Paul Anderson DO - 03/21/2023 12:54 PM EDT As tolerated Lissett Gonzalez MD - 03/23/2023 3:56 PM EDT Low potassium diet Mayda Dalal RN - 03/21/2023 12:55 PM EDT Continuity of Care Form Patient Name: Jessy Mckeon : 1965 Admit date: 03/16/2023 Discharge date: 03/23/23 Code Status Order: Full Code Advance Directives: N Admitting Physician: Ana Sierra MD PCP: Edith Pierce MD Discharging Nurse: Paul Osborne Discharging Hospital Unit/Room#: W5-539/W5-539 A Discharging Unit Phone Number: [phone] Emergency Contact: Extended Emergency Contact Information Primary Emergency Contact: [employer]ef[employer] Relation: Parent Preferred language: Northern Irish Mechanism Inspector needed? No Secondary Emergency Contact: Mamadou Jara Relation: Other Past Surgical History: Past Surgical History: Procedure Laterality Date 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 CHOLECYSTECTOMY COLON SURGERY c-diff COLONOSCOPY 03/28/2018 no polyps UPPER GASTROINTESTINAL ENDOSCOPY 03/28/2018 Immunization History: Immunization History Administered Date(s) Administered Covid-19, Pfizer Bearden Top, Do Not Dilute, (Age 12 Y+), Im, L 09/22/2021, 02/03/2022 Influenza, Unspecified 07/04/2020 Pfizer SARS-CoV-2 Vaccination 12/05/2020, 12/26/2020 Pneumococcal Conjugate PCV 13 07/17/2018 Pneumococcal Polysaccharide PPSV23 08/31/2019 Tdap 12/04/2018 Active Problems: Medical Problems Problem List * (Principal) Urinary tract infection Urinary tract infection without hematuria, site unspecified Urge incontinence of urine Dyspnea Anxiety Schizoaffective disorder ([facility]) (HCC) Chest pain Iron (Fe) deficiency anemia GERD (gastroesophageal reflux disease) Depression Suicidal ideations Acute gastric ulcer without hemorrhage or perforation Hypothyroidism Overview Signed 05/27/2022 2:10 PM by Interface, Incoming Problems- [facility] Conversion Dr esposito Urinary incontinence Diverticulosis of large intestine without diverticulitis Chronic antral gastritis First degree hemorrhoids Nocturia Rotator cuff strain Osteoarthritis of patellofemoral joint Urge incontinence Urinary retention Overview Signed 05/27/2022 2:10 PM by Interface, Incoming Problems- [facility] Conversion Updating Deprecated Diagnoses Localized edema Morbid obesity with BMI of 45.0-49.9, adult (HCC) Hypomagnesemia JOSE A (acute kidney injury) (CMS/HCC) (HCC) Chronic bilateral low back pain with bilateral sciatica Primary hypothyroidism Psychogenic polydipsia Pneumonia Hyponatremia Hypertension Bipolar disorder (HCC) Lung infiltrate on CT Chronic schizoaffective disorder (HCC) Isolation/Infection: No active isolations No active infections Nurse Assessment: Last Vital Signs: BP (!) 175/98 (BP Location: Left arm) Pulse 54 Temp 36.6 C (97.9 F) (Temporal) Resp 20 Ht 5' 2" (1.575 m) Wt 249 lb 8 oz (113 kg) SpO2 100% BMI 45.63 kg/m Last documented pain score (0-10 scale): Last Weight: Wt Readings from Last 1 Encounters: 03/19/23 249 lb 8 oz (113 kg) Mental Status: IRASEMA Patient Mental Status: alert and oriented to person and place IV Access: IRASEMA IV Access: None Nursing Mobility/ADLs: Walking Minimal assistance Transfer Minimal assistance Bathing Minimal assistance Dressing Minimal assistance Toileting Minimal assistance Feeding Independent Automation And Controls Manager Minimal assistance Med Delivery yes Wound Care Documentation and Therapy: Elimination: Continence: Bowel: yes Bladder: yes Urinary Catheter: None Colostomy/Ileostomy/Ileal Conduit: None Date of Last BM: 03/23/23 Intake/Output Summary (Last 24 hours) at 03/21/2023 1254 Last data filed at 03/21/2023 0726 Gross per 24 hour Intake 300 ml Output 1750 ml Net -1450 ml I/O last 3 completed shifts: In: - (0 mL/kg) Out: 2550 (22.5 mL/kg) [Urine:2550 (0.6 mL/kg/hr)] Weight: 113.2 kg Safety Concerns: at risk for falls Impairments/Disabilities: none Nutrition Therapy: Current Nutrition Therapy: Oral diet: low sodium (2gm) Routes of Feeding: oral Liquids: thin liquids Daily Fluid Restriction: no Last Modified Barium Swallow with Video (Video Swallowing Test): not done Treatments at the Time of Hospital Discharge: Respiratory Treatments: Oxygen Therapy: is not on home oxygen therapy. Ventilator: No ventilator support Rehab Therapies: physical therapy and occupational therapy Weight Bearing Status/Restrictions: no restriction Other Medical Equipment (for information only, NOT a DME order): bedside commode and walker Other Treatments: Patient's personal belongings (please select all that are sent with patient): glasses and purse RN SIGNATURE: MANAGEMENT/SOCIAL WORK SECTION Inpatient Status Date: 03/17/23 Readmission Risk Assessment Score: @[email or web address]@ Discharging to Facility/ Agency Name: [facility] Address: [address] [place] [id number] Fax: Dialysis Facility (if applicable) Name: Address: Dialysis Schedule: Phone: Fax: Clinical Rehab Specialist/Egg Breaker signature: ICIAN SECTION Prognosis: excellent Condition at Discharge: stable Rehab Potential (if transferring to Rehab): excellent Recommended Labs or Other Treatments After Discharge: bmp in 2 days, low potassium diet, follow up with nephrology in 1-2 weeks. Physician Certification: I certify the above information and transfer of Jessy Mckeon is necessary for the continuing treatment of the diagnosis listed and that she requires custodial facility for less than 30 days. Update Admission H&P: No change in H&P PHYSICIAN SIGNATURE: documented in this encounter [facility] 03-21-2023 Note Formatting of this n ote might be different from the original. SW following with TCC. Will place amb auth on chart. [facility] 03-21-2023 Note Formatting of this n ote might be different from the original. SW following with TCC. Will place amb auth on chart. [facility] 03-21-2023 Note Formatting of this n ote is different from the original. Images from the original note were not included. Care Management Progress Note AMS noted to be improving. IV abx for UTI have completed. Pt noted to be on Butran patch with weekly patch change, which is prescribed by Dr. Jorge Gonsales as an outpt. Pt has requested referral to [facility]; PT/OT orders noted and currently await therapy notes for recommendations prior to beginning referral. Discharge Milestones and Delays Expected Date/Time: 03/22/2023 Disposition: Snf Facility Discharge Milestones Place discharge order Complete med reconciliation Case mgmt discharge readiness Clinical Stability Diagnsotic Workup Expected Discharge History Expected Date/Time Set By Reviewed At 03/22/2023 SARANYA Marroquin 03/21/2023 9:32 AM 03/20/2023 Kevin Grimes DO 03/20/2023 8:43 AM 03/20/2023 SARANYA Marroquin 03/18/2023 9:03 AM 03/18/2023 Ana Sierra MD 03/17/2023 4:21 AM 03/17/2023 Tyler Sawant MD 03/17/2023 4:06 AM 03/17/2023 Tyler Sawant MD 03/16/2023 9:20 PM Length of Stay (Days): 4 GMLOS: 3.8 [facility] 03-21-2023 Note Formatting of this n ote is different from the original. Images from the original note were not included. Care Management Progress Note AMS noted to be improving. IV abx for UTI have completed. Pt noted to be on Butran patch with weekly patch change, which is prescribed by Dr. Jorge Gonsales as an outpt. [facility]; PT/OT orders noted and currently await therapy notes for recommendations prior to beginning referral. Discharge Milestones and Delays Expected Date/Time: 03/22/2023 Disposition: Snf Facility Discharge Milestones Place discharge order Complete med reconciliation Case mgmt discharge readiness Clinical Stability Diagnsotic Workup Expected Discharge History Expected Date/Time Set By Reviewed At 03/22/2023 SARANYA Marroquin 03/21/2023 9:32 AM 03/20/2023 Kevin Grimes DO 03/20/2023 8:43 AM 03/20/2023 SARANYA Marroquin 03/18/2023 9:03 AM 03/18/2023 Ana Sierra MD 03/17/2023 4:21 AM 03/17/2023 Tyler Sawant MD 03/17/2023 4:06 AM 03/17/2023 Tyler Sawant MD 03/16/2023 9:20 PM Length of Stay (Days): 4 GMLOS: 3.8 [facility] 03-21-2023 Note Formatting of this n ote might be different from the original. SW met with pt. Introduced self. Pt states she is not a registered voter. [facility] [employer] 03-21-2023 Note Formatting of this n ote might be different from the original. SW met with pt. Introduced self. Pt states she is not a registered voter. [facility] [employer] 03-19-2023 Note Formatting of this n ote might be different from the original. Received message from Dr Grimes that pt is requesting to go to [facility] upon dc. Requested PT/OT orders from Dr Grimes for recommendations. Await PT/OT evals/ recs and will see if [facility] is an option at that time. TCC will continue to follow for add'l needs for dc. [facility] [employer] 03-19-2023 Note Formatting of this n ote might be different from the original. Received message from Dr Grimes that pt is requesting to go to [facility] upon dc. Requested PT/OT orders from Dr Grimes for recommendations. Await PT/OT evals/ recs and will see if [facility] is an option at that time. TCC will continue to follow for add'l needs for dc. [facility] [employer] 03-18-2023 Plan of care note Problem: Knowledge Deficit Goal: Patient/family/caregiver demonstrates understanding of disease process, treatment plan, medications, and discharge instructions Outcome: Progressing Problem: Potential for Compromised Skin Integrity Goal: Skin Integrity is Maintained or Improved Outcome: Progressing Goal: Nutritional status is improving Outcome: Progressing Problem: Urinary Incontinence Goal: Perineal skin integrity is maintained or improved Outcome: Progressing [facility] 03-18-2023 Consult note Associated Order (s): IP CONSULT TO PSYCHIATRY Jessy Mckeon is a 58 y.o. female Chief Complaint Patient presents with Altered Mental Status Patient seen and examined, history reviewed with patient. She cannot recall circumstances leading to admission. Says she does think that she had "somehow doubled up" on prescribed medications. She denies that she did so in a suicidal way, says she became confused when she began to experience UTI symptoms and mother was not availabel to check on her (had back surgery). She denies recurrence of depression, SI. She also denies recurring psychosis symptoms. I shared my impression that patient would improve sufficiently to transition to ECF for convalescence and PT/OT in coming days. She shared her wish to go to [facility]. Patient has a long history ofn mental health treatment for schizoaffective disorder. Had previously been on lithium and high dose risperidone when receiving care forom Dr. Jhon Verduzco at [facility]. Here she received ECT and subsequently has been able to wean lithium and decrease4 risperidone. She has responded positively to medication dose reduction overnight. Current Facility-Administered Medications: acetaminophen (Tylenol) tablet 650 mg, 650 mg, Oral, q6h PRN, 650 mg at 03/18/23 1016 OR acetaminophen (Tylenol) suppository 650 mg, 650 mg, Rectal, q6h PRN, Ana Sierra MD cefTRIAXone (Rocephin) 1,000 mg in sodium chloride 0.9 % 50 mL IVPB Mini-Bag Plus, 1,000 mg, IntraVENous, q24h, Kevin Grimes DO, Stopped at 03/17/23 2100 clonazePAM (KlonoPIN) tablet 0.25 mg, 0.25 mg, Oral, TID PRN, Fran Bowers MD, 0.25 mg at 03/18/23 1630 divalproex (Depakote ER) 24 hr tablet 250 mg, 250 mg, Oral, TID, Ana Sierra MD, 250 mg at 03/18/23 133 DULoxetine (Cymbalta) DR capsule 60 mg, 60 mg, Oral, Daily, Ana Sierra MD, 60 mg at 03/18/23 08 heparin injection 5,000 Units, 5,000 Units, SubCUTAneous, 3 times per day, Ana Sierra MD, 5,000 Units at 03/18/23 133 lamoTRIgine (LaMICtal) tablet 100 mg, 100 mg, Oral, Nightly, Fran Bowers MD, 100 mg at 03/17/232030 levothyroxine (Synthroid, Levoxyl) tablet 175 mcg, 175 mcg, Oral, Daily, Ana Sierra MD, 175 mcg at 03/18/23531 metoprolol tartrate (Lopressor) tablet 100 mg, 100 mg, Oral, BID, Kevin Grimes DO, 100 mg at 03/17/232030 [START ON 04/01/2023] Non-Formulary Medication, 20 mcg/hr, TransDERmal, Weekly, Kevin Grimes DO ondansetron ODT (Zofran-ODT) disintegrating tablet 4 mg, 4 mg, Oral, q8h PRN OR ondansetron (Zofran) injection 4 mg, 4 mg, IntraVENous, q6h PRN, Ana Sierra MD pantoprazole (ProtoNix) EC tablet 40 mg, 40 mg, Oral, qAM AC, Ana Sierra MD, 40 mg at 03/18/23 0532 polyethylene glycol (PEG) 3350 (Miralax) packet 17 g, 17 g, Oral, Daily PRN, nAa Sierra MD polyethylene glycol (PEG) 3350 (Miralax) packet 17 g, 17 g, Oral, Daily, Kevin Grimes DO, 17 g at 03/17/23 105 risperiDONE (RisperDAL) tablet 3 mg, 3 mg, Oral, Nightly, Ana Sierra MD, 3 mg at 03/17/232031 senna-docusate sodium (Senokot-S) 8.6-50 MG tablet 2 tablet, 2 tablet, Oral, BID, Kevin Grimes DO, 2 tablet at 03/17/23 1051 tamsulosin (Flomax) 24 hr capsule 0.4 mg, 0.4 mg, Oral, Daily, Ana Sierra MD, 0.4 mg at 03/18/23 0838 traZODone (Desyrel) tablet 100 mg, 100 mg, Oral, Nightly, Fran Bowers MD, 100 mg at 03/17/231 Allergies Allergen Reactions Benztropine Disorientation and loss of muscle control Diphenhydramine Disorientation Nsaids CKD Stage 3 Other Anticholinergics: cause disorientation and loss of muscle control Vitals: 03/18/23 0539 03/18/23 0832 03/18/23 1111 03/18/23 1547 BP: (!) 163/92 (!) 153/91 (!) 166/89 134/67 BP Location: Left arm Left arm Left arm Right arm Patient Position: Lying Lying Lying Pulse: 59 54 69 63 Resp: 18 16 18 16 Temp: 36.5 C (97.7 F) 36.5 C (97.7 F) (!) 35.7 C (96.2 F) 36.1 C (96.9 F) TempSrc: Temporal Temporal Temporal Temporal SpO2: 96% 97% 99% 100% Weight: Height: Recent Results (from the past 24 hour(s)) Basic metabolic panel Collection Time: 03/18/23 2:59 AM Result Value Ref Range SODIUM 135 135 - 145 mmol/L POTASSIUM 5.1 3.5 - 5.1 mmol/L CHLORIDE 108 (H) 98 - 107 mmol/L CARBON DIOXIDE 24 22 - 30 mmol/L UREA NITROGEN 20 (H) 7 - 17 mg/dL CREATININE 2.49 (H) 0.52 - 1.04 mg/dL GLUCOSE 79 70 - 100 mg/dL CALCIUM 8.2 (L) 8.4 - 10.4 mg/dL ANION GAP 3 3 - 13 mmol/L eGFR 22.2 (L) >60.0 mL/min/1.73m*2 CBC Collection Time: 03/18/23 2:59 AM Result Value Ref Range Auto WBC 5.0 3.6 - 10.7 10*3/uL RBC 3.09 (L) 3.8 - 5.20 10*6/uL Hemoglobin 9.8 (L) 11.7 - 16.0 g/dL Hematocrit 29.5 (L) 35.0 - 47.0 % MCV 95.5 80.0 - 98.0 fL MCH 31.8 26.0 - 34.0 pg MCHC 33.3 32.0 - 36.0 % RDW 14.1 11.5 - 14.5 % Platelets 186 140 - 440 10*3/uL MPV 8.4 7.4 - 12.4 fL Ammonia Collection Time: 03/18/23 2:59 AM Result Value Ref Range AMMONIA 24 9 - 30 umol/L ECG 12 lead Collection Time: 03/18/23 9:52 AM Result Value Ref Range Heart Rate 51 bpm QRSD Interval 109 ms QT Interval 432 ms QTC Interval 398 ms P English 7 degrees QRS English 13 degrees T Wave English 31 degrees CA Interval 163 ms Assessment Schizoaffective disorder Delirium UTI Plan Medications as ordered. To ECF as able in coming days. Patient will follow up with this property underwriter as outpatient. [facility] 03-18-2023 Consult note Associated Order (s): IP CONSULT TO PSYCHIATRY Jessy Mckeon is a 58 y.o. female Chief Complaint Patient presents with Altered Mental Status Patient seen and examined, history reviewed with patient. She cannot recall circumstances leading to admission. Says she does think that she had "somehow doubled up" on prescribed medications. She denies that she did so in a suicidal way, says she became confused when she began to experience UTI symptoms and mother was not availabel to check on her (had back surgery). She denies recurrence of depression, SI. She also denies recurring psychosis symptoms. I shared my impression that patient would improve sufficiently to transition to ECF for convalescence and PT/OT in coming days. She shared her wish to go to [facility]. Patient has a long history ofn mental health treatment for schizoaffective disorder. Had previously been on lithium and high dose risperidone when receiving care forom Dr. Jhon Verduzco at [facility]. Here she received ECT and subsequently has been able to wean lithium and decrease4 risperidone. She has responded positively to medication dose reduction overnight. Current Facility-Administered Medications: acetaminophen (Tylenol) tablet 650 mg, 650 mg, Oral, q6h PRN, 650 mg at 03/18/23 1016 OR acetaminophen (Tylenol) suppository 650 mg, 650 mg, Rectal, q6h PRN, Ana Sierra MD cefTRIAXone (Rocephin) 1,000 mg in sodium chloride 0.9 % 50 mL IVPB Mini-Bag Plus, 1,000 mg, IntraVENous, q24h, Kevin Grimes DO, Stopped at 03/17/23 2100 clonazePAM (KlonoPIN) tablet 0.25 mg, 0.25 mg, Oral, TID PRN, Fran Bowers MD, 0.25 mg at 03/18/23 1630 divalproex (Depakote ER) 24 hr tablet 250 mg, 250 mg, Oral, TID, Ana Sierra MD, 250 mg at 03/18/23 1332 DULoxetine (Cymbalta) DR capsule 60 mg, 60 mg, Oral, Daily, Ana Sierra MD, 60 mg at 03/18/23 0837 heparin injection 5,000 Units, 5,000 Units, SubCUTAneous, 3 times per day, Ana Sierra MD, 5,000 Units at 03/18/23 1332 lamoTRIgine (LaMICtal) tablet 100 mg, 100 mg, Oral, Nightly, Fran Bowers MD, 100 mg at 03/17/232030 levothyroxine (Synthroid, Levoxyl) tablet 175 mcg, 175 mcg, Oral, Daily, Ana Sierra MD, 175 mcg at 03/18/23 0532 metoprolol tartrate (Lopressor) tablet 100 mg, 100 mg, Oral, BID, Kevin Grimes DO, 100 mg at 03/17/232030 [START ON 04/01/2023] Non-Formulary Medication, 20 mcg/hr, TransDERmal, Weekly, Keivn Grimes DO ondansetron ODT (Zofran-ODT) disintegrating tablet 4 mg, 4 mg, Oral, q8h PRN OR ondansetron (Zofran) injection 4 mg, 4 mg, IntraVENous, q6h PRN, Ana Sierra MD pantoprazole (ProtoNix) EC tablet 40 mg, 40 mg, Oral, qAM AC, Ana Sierra MD, 40 mg at 03/18/23 0532 polyethylene glycol (PEG) 3350 (Miralax) packet 17 g, 17 g, Oral, Daily PRN, Ana Sierra MD polyethylene glycol (PEG) 3350 (Miralax) packet 17 g, 17 g, Oral, Daily, Kevin Grimes DO, 17 g at 03/17/23 1051 risperiDONE (RisperDAL) tablet 3 mg, 3 mg, Oral, Nightly, Ana Sierra MD, 3 mg at 03/17/232031 senna-docusate sodium (Senokot-S) 8.6-50 MG tablet 2 tablet, 2 tablet, Oral, BID, Kevin Grimes DO, 2 tablet at 03/17/23 105 tamsulosin (Flomax) 24 hr capsule 0.4 mg, 0.4 mg, Oral, Daily, Ana Sierra MD, 0.4 mg at 03/18/23 0838 traZODone (Desyrel) tablet 100 mg, 100 mg, Oral, Nightly, Fran Bowers MD, 100 mg at 03/17/232030 Allergies Allergen Reactions Benztropine Disorientation and loss of muscle control Diphenhydramine Disorientation Nsaids CKD Stage 3 Other Anticholinergics: cause disorientation and loss of muscle control Vitals: 03/18/23 0539 03/18/23 0832 03/18/23 1111 03/18/23 1547 BP: (!) 163/92 (!) 153/91 (!) 166/89 134/67 BP Location: Left arm Left arm Left arm Right arm Patient Position: Lying Lying Lying Pulse: 59 54 69 63 Resp: 18 16 18 16 Temp: 36.5 C (97.7 F) 36.5 C (97.7 F) (!) 35.7 C (96.2 F) 36.1 C (96.9 F) TempSrc: Temporal Temporal Temporal Temporal SpO2: 96% 97% 99% 100% Weight: Height: Recent Results (from the past 24 hour(s)) Basic metabolic panel Collection Time: 03/18/23 2:59 AM Result Value Ref Range SODIUM 135 135 - 145 mmol/L POTASSIUM 5.1 3.5 - 5.1 mmol/L CHLORIDE 108 (H) 98 - 107 mmol/L CARBON DIOXIDE 24 22 - 30 mmol/L UREA NITROGEN 20 (H) 7 - 17 mg/dL CREATININE 2.49 (H) 0.52 - 1.04 mg/dL GLUCOSE 79 70 - 100 mg/dL CALCIUM 8.2 (L) 8.4 - 10.4 mg/dL ANION GAP 3 3 - 13 mmol/L eGFR 22.2 (L) >60.0 mL/min/1.73m*2 CBC Collection Time: 03/18/23 2:59 AM Result Value Ref Range Auto WBC 5.0 3.6 - 10.7 10*3/uL RBC 3.09 (L) 3.8 - 5.20 10*6/uL Hemoglobin 9.8 (L) 11.7 - 16.0 g/dL Hematocrit 29.5 (L) 35.0 - 47.0 % MCV 95.5 80.0 - 98.0 fL MCH 31.8 26.0 - 34.0 pg MCHC 33.3 32.0 - 36.0 % RDW 14.1 11.5 - 14.5 % Platelets 186 140 - 440 10*3/uL MPV 8.4 7.4 - 12.4 fL Ammonia Collection Time: 03/18/23 2:59 AM Result Value Ref Range AMMONIA 24 9 - 30 umol/L ECG 12 lead Collection Time: 03/18/23 9:52 AM Result Value Ref Range Heart Rate 51 bpm QRSD Interval 109 ms QT Interval 432 ms QTC Interval 398 ms P English 7 degrees QRS English 13 degrees T Wave English 31 degrees CA Interval 163 ms Assessment Schizoaffective disorder Delirium UTI Plan Medications as ordered. To [facility] as able in coming days. Patient will follow up with this property underwriter as outpatient. documented in this encounter [facility] 03-18-2023 Note Formatting of this n ote might be different from the original. Care Managment Initial Assessment Date: 03/18/2023 Patient Name: Jessy Mckeon : 1965 Patient Information Source of Information: Patient Cognition/Language: Impaired Permission given to speak with patient high school admissions representative/caregiver as indicated: Confirmation of Payer with patient/family: Yes Payer Name: Medicare A and B [place]: No Confirmation of Primary Care Physician: Confirmed PCP Name: Dr Akins Seen in last 2 years?: Yes Primary Caregiver: Self If assistance needed, confirmed caregiver ready, willing and able to care for patient at discharge: Confirmed with: Living Arrangements Current Residence: Number of Floors Number of Entry Steps: Bed/Bath Levels: Facility: ([facility]) Facility Name: [address] [phone] Plan to Return: Lives with: Alone Support Systems: Children, Parent, Family members, Friends/neighbors, Comments (Other) (staff at [place]) Activities of Daily Living Ambulation: Assistance Bathing/Dressing: Independent Elimination/Continence/Toileting: Independent Feeding: Independent Who Assists with Activities of Daily Living: Instrumental Activities of Daily Living Prescription Coverage: Yes Pharmacy Used: [facility] Medication Management: Independent Transportation/Shopping: Assistance Provider Transportation/Shopping Assistance Provider Name: family Transportation Mode: Car Needs Assistance with Transportation at Discharge: No Meal Preparation: Assistance Provider Meal Prep Assistance Provider Name: give some meals at [place] Laundry/Cleaning: Assistance Provider Laundry/Cleaning Assistance Provider Name: Assist with cleanng and laundry Finances/Bill Paying: Assistance Provider Finances/Bill Payer Assistance Provider Name: family Communication: Independent Types of Care Services/Equipment Utilized Care Services: (n/a) Dialysis Type: NA Durable Medical Equipment: Walker Patient's Goal/Discharge Plan Patient expects to be discharged to: Discharge Planning Actions: Patient's Choice Rights and [employer] and Collaborative Relationships Disclosed as Indicated for Post-Acute Care: Interdisciplinary Team Engagement: Social Work Referral for: Additional Information: Went into room introduced self and role to pt. She appears to be 0 x 1-2. She came to ER ith c/o mental status changes. She lives in an [place] facility. Psych has been consulted. Received 2 doses of IV antibiotics. Wants to return to [place], will follow for needs. . Ewelina Rojo RN [facility] 03-18-2023 Note Formatting of this n ote might be different from the original. Care Managment Initial Assessment Date: 03/18/2023 Patient Name: Jessy Mckeon : 1965 Patient Information Source of Information: Patient Cognition/Language: Impaired Permission given to speak with patient high school admissions representative/caregiver as indicated: Confirmation of Payer with patient/family: Yes Payer Name: Medicare A and B [place]: No Confirmation of Primary Care Physician: Confirmed PCP Name: Dr Akins Seen in last 2 years?: Yes Primary Caregiver: Self If assistance needed, confirmed caregiver ready, willing and able to care for patient at discharge: Confirmed with: Living Arrangements Current Residence: Number of Floors Number of Entry Steps: Bed/Bath Levels: Facility: ([facility]) Facility Name: [address] [phone] Plan to Return: Lives with: Alone Support Systems: Children, Parent, Family members, Friends/neighbors, Comments (Other) (staff at [place]) Activities of Daily Living Ambulation: Assistance Bathing/Dressing: Independent Elimination/Continence/Toileting: Independent Feeding: Independent Who Assists with Activities of Daily Living: Instrumental Activities of Daily Living Prescription Coverage: Yes Pharmacy Used: [facility] Medication Management: Independent Transportation/Shopping: Assistance Provider Transportation/Shopping Assistance Provider Name: family Transportation Mode: Car Needs Assistance with Transportation at Discharge: No Meal Preparation: Assistance Provider Meal Prep Assistance Provider Name: give some meals at [place] Laundry/Cleaning: Assistance Provider Laundry/Cleaning Assistance Provider Name: Assist with cleanng and laundry Finances/Bill Paying: Assistance Provider Finances/Bill Payer Assistance Provider Name: family Communication: Independent Types of Care Services/Equipment Utilized Care Services: (n/a) Dialysis Type: NA Durable Medical Equipment: Walker Patient's Goal/Discharge Plan Patient expects to be discharged to: Discharge Planning Actions: Patient's Choice Rights and [employer] and Collaborative Relationships Disclosed as Indicated for Post-Acute Care: Interdisciplinary Team Engagement: Social Work Referral for: Additional Information: Went into room introduced self and role to pt. She appears to be 0 x 1-2. She came to ER ith c/o mental status changes. She lives in an [place] facility. Psych has been consulted. Received 2 doses of IV antibiotics. Wants to return to [place], will follow for needs. . Ewelina Rojo RN [facility] [employer] 03-18-2023 Nurse Note patient experiencing nonsustaining bradycardia when sleeeping. shes dipping into the 40's and comes right back up. currently between 48-58. otherwise asymptomatic. BP 163/92. Dr. Sierra was notified. No New orders at this time. T [facility] [employer] 03-18-2023 Plan of care note Problem: Knowledge Deficit Goal: Patient/family/caregiver demonstrates understanding of disease process, treatment plan, medications, and discharge instructions Outcome: Progressing Problem: Potential for Compromised Skin Integrity Goal: Skin Integrity is Maintained or Improved Outcome: Progressing Goal: Nutritional status is improving Outcome: Progressing Problem: Urinary Incontinence Goal: Perineal skin integrity is maintained or improved Outcome: Progressing T [facility] [employer] 03-17-2023 Nurse Note Patients BP 168/105 with activity at shift change. PO metoprolol administered with night meds. Repeat BP 137/94. T [facility] [employer] 03-17-2023 Note Formatting of this n ote might be different from the original. Went into room to introduced self and role. Pt is sleeping and would not wake up. Will assess as time permits. Pt came to ER with change in mental status. Creat at 3.07. She was found to have a UTI. She was started on IV antibiotics and IV fluid. Will follow for needs. . T [facility] 03-17-2023 Note Formatting of this n ote might be different from the original. Went into room to introduced self and role. Pt is sleeping and would not wake up. Will assess as time permits. Pt came to ER with change in mental status. Creat at 3.07. She was found to have a UTI. She was started on IV antibiotics and IV fluid. Will follow for needs. . T [facility] 03-17-2023 History and physical note History and Physical - [facility] Acute Care [facility] [place] Admit Date: 03/16/2023 PCP: Edith Pierce MD HISTORY OF PRESENT ILLNESS: Jessy Mckeon is a 58 y.o. female with PMH of Bipolar, Depression, Anxiety, Asperger syndrome, CKD 4, Hyponatremia, and Hypothyroidism who presented with Chief Complaint of AMS. Patient is A&O x 2 with poor insight. Complains of cold room and constipation. Requesting to turn up heat. No chest pain or SOB. ED VSS. Na 134, Cr 3, Hgb 10.8, Valproic acid 67, and UA was weakly positive for UTI. Urine culture obtained and she was started on Rocephin. Urine tox negative. Head CT negative for acute pathology. Admitted for further workup. Past Medical History: Past Medical History: Diagnosis Date Acid reflux Anxiety Arthritis Asperger syndrome Bipolar disorder (HCC) Chronic kidney disease stage 4 kidney failure Chronic pain Depression Edema of both legs GERD (gastroesophageal reflux disease) Hemorrhoids Hyperlipidemia Hypertension Hypothyroidism Iron (Fe) deficiency anemia Nephrogenic diabetes insipidus (HCC) Pain management Retention of urine, unspecified Sciatica SOB (shortness of breath) GRANT Type II or unspecified type diabetes mellitus without mention of complication, not stated as uncontrolled (HCC) Urinary incontinence nightly Past Surgical History: Past Surgical History: Procedure Laterality Date 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 CHOLECYSTECTOMY COLON SURGERY c-diff COLONOSCOPY 03/28/2018 no polyps UPPER GASTROINTESTINAL ENDOSCOPY 03/28/2018 Social History: Social History Socioeconomic History Marital status: Single Spouse name: Not on file Number of children: Not on file Years of education: Not on file Highest education level: Not on file Occupational History Not on file Tobacco Use Smoking status: Former Smokeless tobacco: Never Substance and Sexual Activity Alcohol use: No Alcohol/week: 0.0 standard drinks of alcohol Drug use: No Sexual activity: Not on file Other Topics Concern Not on file Social History Narrative Not on file Social Determinants of Health Financial Resource Strain: Not on file Food Insecurity: Not on file Transportation Needs: Not on file Physical Activity: Not on file Stress: Not on file Social Connections: Not on file Intimate Partner Violence: Not At Risk (03/17/2023) Humiliation, Afraid, Rape, and Kick questionnaire Fear of Current or Ex-Partner: No Emotionally Abused: No Physically Abused: No Sexually Abused: No Housing Stability: Not on file Family History: Family History Problem Relation Name Age of Onset Hypertension Mother Cancer Father Colon cancer Maternal Grandmother Cancer Brother Medications Prior to Admission: Current Outpatient Medications Medication Instructions buprenorphine (Butrans) 15 MCG/HR 20 patches, TransDERmal, Once clonazePAM (KLONOPIN) 0.5 mg, Oral, 2 times daily PRN divalproex (DEPAKOTE ER) 250 mg, Oral, 3 times daily, Do not crush, chew, or split. DULoxetine (Cymbalta) [address] capsule TAKE 1 CAPSULE BY MOUTH DAILY Incontinence Supply Disposable (Depend Pant Extra Large) misc 1 each, Does not apply, 4 times daily lamoTRIgine (LaMICtal) 200 MG tablet TAKE 1 TABLET BY MOUTH NIGHTLY levothyroxine (SYNTHROID, LEVOXYL) 175 mcg, Oral, Daily metoprolol tartrate (Lopressor) 100 MG tablet take 1 tablet by mouth IN THE MORNING AND 1 TABLET BEFORE BEDTIME omeprazole (PriLOSEC) [address] capsule TAKE 1 CAPSULE BY MOUTH EVERY MORNING BEFORE BREAKFAST risperiDONE (RisperDAL) 3 MG tablet TAKE 2 TABLETS BY MOUTH NIGHTLY Selenium 200 MCG capsule TAKE 1 CAPSULE BY MOUTH AT 8PM tamsulosin (FLOMAX) 0.4 mg, Oral, Daily traZODone (Desyrel) 100 MG tablet TAKE 2 TABLETS BY MOUTH NIGHTLY Allergies: Benztropine, Diphenhydramine, Nsaids, and Other REVIEW OF SYSTEMS: ROS negative except for what is mentioned in HPI Vitals: BP (!) 159/90 (BP Location: Left arm, Patient Position: Lying) Pulse 69 Temp 36.4 C (97.5 F) (Temporal) Resp 17 Ht 5' 2" (1.575 m) Wt 250 lb (113 kg) SpO2 100% BMI 45.73 kg/m Pulse Ox: SpO2 Av.4 % Min: 97 % Max: 100 % Supplemental O2: PHYSICAL EXAM: GENERAL: somnolent, A&O x 2 with poor insight CARDIOVASCULAR: regular RESPIRATORY: clear without rhonchi ABDOMEN: non distended EXTREMITIES: moving appropriately LE lymphedema, Butran 20 mcg/hr patch on abdomen DATA: Recent Results (from the past 24 hour(s)) ECG 12 lead Collection Time: 03/16/23 5:36 PM Result Value Ref Range Heart Rate 74 bpm QRSD Interval 103 ms QT Interval 394 ms QTC Interval 436 ms P English -13 degrees QRS English -2 degrees T Wave English 47 degrees CA Interval 174 ms Complete Urinalysis Collection Time: 03/16/23 6:17 PM Result Value Ref Range Color, Urine Light Yellow Lt. Yellow Clarity, Urine Clear Clear pH, Urine 6.0 5.0 - 8.0 pH Leukocytes, Urine 500 (A) Negative Devang/uL Nitrite, Urine Negative Negative Protein, Urine 100 (A) Negative mg/dL Glucose, Urine Normal Normal (<70) mg/dL Bilirubin, Urine Negative Negative mg/dL Ketones, Urine Negative Negative mg/dL Urobilinogen, Urine Normal Normal (0-1) mg/dL Blood, Urine Negative Negative mg/dL Volume, Urine 12 mL RBC, Urine 0-2 0 - 2 /HPF WBC, Urine 6-10 (A) 0 - 5 /HPF Squamous Epithelial, Urine 3-5 3 - 5 /HPF Bacteria, Urine Few (A) Negative /HPF Mucus, Urine Few Negative /LPF Amorphous Urates, Urine Few (A) Negative /HPF SPECIFIC GRAVITY OF URINE (NUMERIC) 1.005 1.005 - 1.030 Drug screen panel, emergency Collection Time: 03/16/23 6:17 PM Result Value Ref Range AMPHETAMINE SCREEN Negative BARBITURATES SCREEN Negative BENZODIAZEPINE SCREEN Negative COCAINE METAB. SCREEN Negative METHADONE SCREEN Negative OPIATES SCREEN Negative OXYCODONE SCREEN Negative PHENCYCLIDINE SCREEN Negative Comprehensive metabolic panel Collection Time: 03/16/23 6:47 PM Result Value Ref Range SODIUM 134 (L) 135 - 145 mmol/L POTASSIUM 4.7 3.5 - 5.1 mmol/L CHLORIDE 101 98 - 107 mmol/L CARBON DIOXIDE 24 22 - 30 mmol/L ANION GAP 8 3 - 13 mmol/L UREA NITROGEN 22 (H) 7 - 17 mg/dL CREATININE 3.07 (H) 0.52 - 1.04 mg/dL GLUCOSE 107 (H) 70 - 100 mg/dL CALCIUM 8.7 8.4 - 10.4 mg/dL AST (SGOT) 26 15 - 46 U/L ALT 15 0 - 34 U/L ALKALINE PHOSPHATASE 74 38 - 126 U/L ALBUMIN 3.7 3.5 - 5.0 g/dL BILIRUBIN, TOTAL 0.3 0.2 - 1.3 mg/dL TOTAL PROTEIN 7.2 6.3 - 8.2 g/dL eGFR 17.2 (L) >60.0 mL/min/1.73m*2 Troponin I Collection Time: 03/16/23 6:47 PM Result Value Ref Range TROPONIN I <0.012 0.000 - 0.034 ng/mL CBC auto differential Collection Time: 03/16/23 6:47 PM Result Value Ref Range Auto WBC 6.3 3.6 - 10.7 10*3/uL RBC 3.44 (L) 3.8 - 5.20 10*6/uL Hemoglobin 10.8 (L) 11.7 - 16.0 g/dL Hematocrit 33.2 (L) 35.0 - 47.0 % MCV 96.5 80.0 - 98.0 fL MCH 31.4 26.0 - 34.0 pg MCHC 32.5 32.0 - 36.0 % RDW 13.1 11.5 - 14.5 % Platelets 181 140 - 440 10*3/uL MPV 9.4 7.4 - 12.4 fL Neutrophils Relative 54.2 40.0 - 80.0 % Lymphocytes Relative 31.0 20.0 - 40.0 % Monocytes Relative 10.5 (H) 2.0 - 10.0 % Eosinophils Relative 3.7 1.0 - 6.0 % Basophils Relative 0.3 0.0 - 2.0 % Immature Grans % 0.3 (H) <=0.0 % Neutrophils Absolute 3.4 1.8 - 7.0 10*3/uL Lymphocytes Absolute 1.9 1.0 - 4.3 10*3/uL Monocytes Absolute 0.7 0.0 - 0.8 10*3/uL Eosinophils Absolute 0.2 0.0 - 0.5 10*3/uL Basophils Absolute 0.0 0.0 - 0.2 10*3/uL Immature Grans Absolute 0.0 <=0.0 10*3/uL Lactic acid, sepsis, with reflex if elevated Collection Time: 03/16/23 6:47 PM Result Value Ref Range LACTIC ACID 2.0 0.7 - 2.0 mmol/L Valproic acid level, total Collection Time: 03/17/23 12:04 AM Result Value Ref Range VALPROIC ACID 67 50 - 120 ug/mL CBC auto differential Collection Time: 03/17/23 4:45 AM Result Value Ref Range Auto WBC 5.9 3.6 - 10.7 10*3/uL RBC 3.27 (L) 3.8 - 5.20 10*6/uL Hemoglobin 10.2 (L) 11.7 - 16.0 g/dL Hematocrit 31.8 (L) 35.0 - 47.0 % MCV 97.4 80.0 - 98.0 fL MCH 31.2 26.0 - 34.0 pg MCHC 32.0 32.0 - 36.0 % RDW 14.2 11.5 - 14.5 % Platelets 167 140 - 440 10*3/uL MPV 7.9 7.4 - 12.4 fL nRBC 0.2 0.0 - 2.0 /100 WBCs Neutrophils Relative 48.9 40.0 - 80.0 % Lymphocytes Relative 33.6 20.0 - 40.0 % Monocytes Relative 13.0 (H) 2.0 - 10.0 % Eosinophils Relative 4.2 1.0 - 6.0 % Basophils Relative 0.3 0.0 - 2.0 % Neutrophils Absolute 2.9 1.8 - 7.0 10*3/uL Lymphocytes Absolute 2.0 1.0 - 4.3 10*3/uL Monocytes Absolute 0.8 0.0 - 0.8 10*3/uL Eosinophils Absolute 0.2 0.0 - 0.5 10*3/uL Basophils Absolute 0.0 0.0 - 0.2 10*3/uL Basic metabolic panel Collection Time: 03/17/23 4:45 AM Result Value Ref Range SODIUM 137 135 - 145 mmol/L POTASSIUM 4.3 3.5 - 5.1 mmol/L CHLORIDE 107 98 - 107 mmol/L CARBON DIOXIDE 24 22 - 30 mmol/L UREA NITROGEN 20 (H) 7 - 17 mg/dL CREATININE 2.83 (H) 0.52 - 1.04 mg/dL GLUCOSE 110 (H) 70 - 100 mg/dL CALCIUM 8.2 (L) 8.4 - 10.4 mg/dL ANION GAP 5 3 - 13 mmol/L eGFR 19.0 (L) >60.0 mL/min/1.73m*2 Urine Culture: No results found for this or any previous visit. CBC: Recent Labs 03/16/23184603/17/23 0445 WBC 6.3 5.9 RBC 3.44* 3.27* HGB 10.8* 10.2* HCT 33.2* 31.8* MCV 96.5 97.4 RDW 13.1 14.2 PLT 181 167 BMP: Recent Labs 03/16/23184603/17/23 0445 NA 134* 137 K 4.7 4.3 CL 101 107 CO2 24 24 BUN 22* 20* CREATININE 3.07* 2.83* GLUCOSE 107* 110* CALCIUM 8.7 8.2* ANIONGAP 8 5 LIVER PROFILE: Recent Labs 03/16/231846 AST 26 ALT 15 BILITOT 0.3 ALKPHOS 74 PROT 7.2 PT/INR: No results for input(s): PROTIME, INR in the last 72 hours. CARDIAC ENZYMES: Recent Labs 03/16/231846 TROPONINI <0.012 Procalcitonin: No results found for: PROCAL COVID-19 PCR: No results for input(s): COVID19 in the last 72 hours. Significant Diagnostic Studies: EKG: See Report Echo: See Report sodium chloride, 100 mL/hr, Last Rate: 100 mL/hr (03/17/23 0434) cefTRIAXone, 1,000 mg, IntraVENous, q24h divalproex, 250 mg, Oral, TID DULoxetine, 60 mg, Oral, Daily heparin, 5,000 Units, SubCUTAneous, 3 times per day lamoTRIgine, 200 mg, Oral, Nightly levothyroxine, 175 mcg, Oral, Daily metoprolol tartrate, 100 mg, Oral, BID pantoprazole, 40 mg, Oral, qAM AC risperiDONE, 3 mg, Oral, Nightly tamsulosin, 0.4 mg, Oral, Daily traZODone, 200 mg, Oral, Nightly IMPRESSION & PLAN: Jessy Mckeon is a 58 y.o. female with PMH of Bipolar, Depression, Anxiety, Asperger syndrome, CKD 4, Hyponatremia, and Hypothyroidism who presented with Chief Complaint of AMS. ED VSS. Na 134, Cr 3, Hgb 10.8, Valproic acid 67, and UA was weakly positive for UTI. Urine culture obtained and she was started on Rocephin. Urine tox negative. Head CT negative for acute pathology. Admitted for further workup. States she makes her own decisions #AMS -Suspect 2/2 Psych etiology -A&O x 2 with poor insight -Urine tox negative -TSH -Ammonia -Consult Psych, known to Dr. Bowers -Does have 20 mcg/hr Butran patch on abdomen #Possible UTI -Urine culture pending -IV Rocephin Day #2 (03/17) #Elevated Cr #CKD 4 #Hyponatremia -Baseline Cr ~ 2.5 -IV saline #Low TSH -Free T4 1.74 #Bipolar #Depression #Anxiety #Asperger syndrome -Has undergone ECT -Continue home Depakote, Cymbalta, Risperdal, Trazodone, and PRN Klonopin -Valproic acid is 67 -OARRS reviewed: Klonopin and Butrans patch -Known to Dr. Bowers #Anemia -Had anemia workup in September 2022 that ruled out iron deficiency #Hypothyroidism -Continue home Synthroid #HTN -Continue home Lopressor #Urinary retention -Continue home Flomax #Body mass index is 45.73 kg/m ., BMI Classification: Body mass index is 45.73 kg/m . Morbidly Obese (>40.0) #DVT Prophylaxis -Heparin SQ #Disposition: TBD #Barriers to discharge: TBD Code status: Full Code Dr. Kevin Grimes [facility] Hospitalist Time spent: 85 minutes Has at least of one of these; Number and Complexity of Problems Addressed at the Encounter: -1 or more chronic illnesses with exacerbation, progression, or side effects of treatment -2 or more stable, chronic illnesses -1 acute illness with systemic symptoms -1 acute, complicated injury Risk of Complications and/or Morbidity or Mortality of Patient Management: -Prescription drug management [facility] [employer] 03-17-2023 History and physical note History and Physical - [facility] Acute Care [facility] [place] [place] Admit Date: 03/16/2023 PCP: Edith Pierce MD HISTORY OF PRESENT ILLNESS: Jessy Mckeon is a 58 y.o. female with PMH of Bipolar, Depression, Anxiety, Asperger syndrome, CKD 4, Hyponatremia, and Hypothyroidism who presented with Chief Complaint of AMS. Patient is A&O x 2 with poor insight. Complains of cold room and constipation. Requesting to turn up heat. No chest pain or SOB. ED VSS. Na 134, Cr 3, Hgb 10.8, Valproic acid 67, and UA was weakly positive for UTI. Urine culture obtained and she was started on Rocephin. Urine tox negative. Head CT negative for acute pathology. Admitted for further workup. Past Medical History: Past Medical History: Diagnosis Date Acid reflux Anxiety Arthritis Asperger syndrome Bipolar disorder (HCC) Chronic kidney disease stage 4 kidney failure Chronic pain Depression Edema of both legs GERD (gastroesophageal reflux disease) Hemorrhoids Hyperlipidemia Hypertension Hypothyroidism Iron (Fe) deficiency anemia Nephrogenic diabetes insipidus (HCC) Pain management Retention of urine, unspecified Sciatica SOB (shortness of breath) GRANT Type II or unspecified type diabetes mellitus without mention of complication, not stated as uncontrolled (HCC) Urinary incontinence nightly Past Surgical History: Past Surgical History: Procedure Laterality Date 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 CHOLECYSTECTOMY COLON SURGERY c-diff COLONOSCOPY 03/28/2018 no polyps UPPER GASTROINTESTINAL ENDOSCOPY 03/28/2018 Social History: Social History Socioeconomic History Marital status: Single Spouse name: Not on file Number of children: Not on file Years of education: Not on file Highest education level: Not on file Occupational History Not on file Tobacco Use Smoking status: Former Smokeless tobacco: Never Substance and Sexual Activity Alcohol use: No Alcohol/week: 0.0 standard drinks of alcohol Drug use: No Sexual activity: Not on file Other Topics Concern Not on file Social History Narrative Not on file Social Determinants of Health Financial Resource Strain: Not on file Food Insecurity: Not on file Transportation Needs: Not on file Physical Activity: Not on file Stress: Not on file Social Connections: Not on file Intimate Partner Violence: Not At Risk (03/17/2023) Humiliation, Afraid, Rape, and Kick questionnaire Fear of Current or Ex-Partner: No Emotionally Abused: No Physically Abused: No Sexually Abused: No Housing Stability: Not on file Family History: Family History Problem Relation Name Age of Onset Hypertension Mother Cancer Father Colon cancer Maternal Grandmother Cancer Brother Medications Prior to Admission: Current Outpatient Medications Medication Instructions buprenorphine (Butrans) 15 MCG/HR 20 patches, TransDERmal, Once clonazePAM (KLONOPIN) 0.5 mg, Oral, 2 times daily PRN divalproex (DEPAKOTE ER) 250 mg, Oral, 3 times daily, Do not crush, chew, or split. DULoxetine (Cymbalta) [address] capsule TAKE 1 CAPSULE BY MOUTH DAILY Incontinence Supply Disposable (Depend Pant Extra Large) misc 1 each, Does not apply, 4 times daily lamoTRIgine (LaMICtal) 200 MG tablet TAKE 1 TABLET BY MOUTH NIGHTLY levothyroxine (SYNTHROID, LEVOXYL) 175 mcg, Oral, Daily metoprolol tartrate (Lopressor) 100 MG tablet take 1 tablet by mouth IN THE MORNING AND 1 TABLET BEFORE BEDTIME omeprazole (PriLOSEC) [address] capsule TAKE 1 CAPSULE BY MOUTH EVERY MORNING BEFORE BREAKFAST risperiDONE (RisperDAL) 3 MG tablet TAKE 2 TABLETS BY MOUTH NIGHTLY Selenium 200 MCG capsule TAKE 1 CAPSULE BY MOUTH AT 8PM tamsulosin (FLOMAX) 0.4 mg, Oral, Daily traZODone (Desyrel) 100 MG tablet TAKE 2 TABLETS BY MOUTH NIGHTLY Allergies: Benztropine, Diphenhydramine, Nsaids, and Other REVIEW OF SYSTEMS: ROS negative except for what is mentioned in HPI Vitals: BP (!) 159/90 (BP Location: Left arm, Patient Position: Lying) Pulse 69 Temp 36.4 C (97.5 F) (Temporal) Resp 17 Ht 5' 2" (1.575 m) Wt 250 lb (113 kg) SpO2 100% BMI 45.73 kg/m Pulse Ox: SpO2 Av.4 % Min: 97 % Max: 100 % Supplemental O2: PHYSICAL EXAM: GENERAL: somnolent, A&O x 2 with poor insight CARDIOVASCULAR: regular RESPIRATORY: clear without rhonchi ABDOMEN: non distended EXTREMITIES: moving appropriately LE lymphedema, Butran 20 mcg/hr patch on abdomen DATA: Recent Results (from the past 24 hour(s)) ECG 12 lead Collection Time: 03/16/23 5:36 PM Result Value Ref Range Heart Rate 74 bpm QRSD Interval 103 ms QT Interval 394 ms QTC Interval 436 ms P English -13 degrees QRS English -2 degrees T Wave English 47 degrees CA Interval 174 ms Complete Urinalysis Collection Time: 03/16/23 6:17 PM Result Value Ref Range Color, Urine Light Yellow Lt. Yellow Clarity, Urine Clear Clear pH, Urine 6.0 5.0 - 8.0 pH Leukocytes, Urine 500 (A) Negative Devang/uL Nitrite, Urine Negative Negative Protein, Urine 100 (A) Negative mg/dL Glucose, Urine Normal Normal (<70) mg/dL Bilirubin, Urine Negative Negative mg/dL Ketones, Urine Negative Negative mg/dL Urobilinogen, Urine Normal Normal (0-1) mg/dL Blood, Urine Negative Negative mg/dL Volume, Urine 12 mL RBC, Urine 0-2 0 - 2 /HPF WBC, Urine 6-10 (A) 0 - 5 /HPF Squamous Epithelial, Urine 3-5 3 - 5 /HPF Bacteria, Urine Few (A) Negative /HPF Mucus, Urine Few Negative /LPF Amorphous Urates, Urine Few (A) Negative /HPF SPECIFIC GRAVITY OF URINE (NUMERIC) 1.005 1.005 - 1.030 Drug screen panel, emergency Collection Time: 03/16/23 6:17 PM Result Value Ref Range AMPHETAMINE SCREEN Negative BARBITURATES SCREEN Negative BENZODIAZEPINE SCREEN Negative COCAINE METAB. SCREEN Negative METHADONE SCREEN Negative OPIATES SCREEN Negative OXYCODONE SCREEN Negative PHENCYCLIDINE SCREEN Negative Comprehensive metabolic panel Collection Time: 03/16/23 6:47 PM Result Value Ref Range SODIUM 134 (L) 135 - 145 mmol/L POTASSIUM 4.7 3.5 - 5.1 mmol/L CHLORIDE 101 98 - 107 mmol/L CARBON DIOXIDE 24 22 - 30 mmol/L ANION GAP 8 3 - 13 mmol/L UREA NITROGEN 22 (H) 7 - 17 mg/dL CREATININE 3.07 (H) 0.52 - 1.04 mg/dL GLUCOSE 107 (H) 70 - 100 mg/dL CALCIUM 8.7 8.4 - 10.4 mg/dL AST (SGOT) 26 15 - 46 U/L ALT 15 0 - 34 U/L ALKALINE PHOSPHATASE 74 38 - 126 U/L ALBUMIN 3.7 3.5 - 5.0 g/dL BILIRUBIN, TOTAL 0.3 0.2 - 1.3 mg/dL TOTAL PROTEIN 7.2 6.3 - 8.2 g/dL eGFR 17.2 (L) >60.0 mL/min/1.73m*2 Troponin I Collection Time: 03/16/23 6:47 PM Result Value Ref Range TROPONIN I <0.012 0.000 - 0.034 ng/mL CBC auto differential Collection Time: 03/16/23 6:47 PM Result Value Ref Range Auto WBC 6.3 3.6 - 10.7 10*3/uL RBC 3.44 (L) 3.8 - 5.20 10*6/uL Hemoglobin 10.8 (L) 11.7 - 16.0 g/dL Hematocrit 33.2 (L) 35.0 - 47.0 % MCV 96.5 80.0 - 98.0 fL MCH 31.4 26.0 - 34.0 pg MCHC 32.5 32.0 - 36.0 % RDW 13.1 11.5 - 14.5 % Platelets 181 140 - 440 10*3/uL MPV 9.4 7.4 - 12.4 fL Neutrophils Relative 54.2 40.0 - 80.0 % Lymphocytes Relative 31.0 20.0 - 40.0 % Monocytes Relative 10.5 (H) 2.0 - 10.0 % Eosinophils Relative 3.7 1.0 - 6.0 % Basophils Relative 0.3 0.0 - 2.0 % Immature Grans % 0.3 (H) <=0.0 % Neutrophils Absolute 3.4 1.8 - 7.0 10*3/uL Lymphocytes Absolute 1.9 1.0 - 4.3 10*3/uL Monocytes Absolute 0.7 0.0 - 0.8 10*3/uL Eosinophils Absolute 0.2 0.0 - 0.5 10*3/uL Basophils Absolute 0.0 0.0 - 0.2 10*3/uL Immature Grans Absolute 0.0 <=0.0 10*3/uL Lactic acid, sepsis, with reflex if elevated Collection Time: 03/16/23 6:47 PM Result Value Ref Range LACTIC ACID 2.0 0.7 - 2.0 mmol/L Valproic acid level, total Collection Time: 03/17/23 12:04 AM Result Value Ref Range VALPROIC ACID 67 50 - 120 ug/mL CBC auto differential Collection Time: 03/17/23 4:45 AM Result Value Ref Range Auto WBC 5.9 3.6 - 10.7 10*3/uL RBC 3.27 (L) 3.8 - 5.20 10*6/uL Hemoglobin 10.2 (L) 11.7 - 16.0 g/dL Hematocrit 31.8 (L) 35.0 - 47.0 % MCV 97.4 80.0 - 98.0 fL MCH 31.2 26.0 - 34.0 pg MCHC 32.0 32.0 - 36.0 % RDW 14.2 11.5 - 14.5 % Platelets 167 140 - 440 10*3/uL MPV 7.9 7.4 - 12.4 fL nRBC 0.2 0.0 - 2.0 /100 WBCs Neutrophils Relative 48.9 40.0 - 80.0 % Lymphocytes Relative 33.6 20.0 - 40.0 % Monocytes Relative 13.0 (H) 2.0 - 10.0 % Eosinophils Relative 4.2 1.0 - 6.0 % Basophils Relative 0.3 0.0 - 2.0 % Neutrophils Absolute 2.9 1.8 - 7.0 10*3/uL Lymphocytes Absolute 2.0 1.0 - 4.3 10*3/uL Monocytes Absolute 0.8 0.0 - 0.8 10*3/uL Eosinophils Absolute 0.2 0.0 - 0.5 10*3/uL Basophils Absolute 0.0 0.0 - 0.2 10*3/uL Basic metabolic panel Collection Time: 03/17/23 4:45 AM Result Value Ref Range SODIUM 137 135 - 145 mmol/L POTASSIUM 4.3 3.5 - 5.1 mmol/L CHLORIDE 107 98 - 107 mmol/L CARBON DIOXIDE 24 22 - 30 mmol/L UREA NITROGEN 20 (H) 7 - 17 mg/dL CREATININE 2.83 (H) 0.52 - 1.04 mg/dL GLUCOSE 110 (H) 70 - 100 mg/dL CALCIUM 8.2 (L) 8.4 - 10.4 mg/dL ANION GAP 5 3 - 13 mmol/L eGFR 19.0 (L) >60.0 mL/min/1.73m*2 Urine Culture: No results found for this or any previous visit. CBC: Recent Labs 03/16/23184603/17/23 0445 WBC 6.3 5.9 RBC 3.44* 3.27* HGB 10.8* 10.2* HCT 33.2* 31.8* MCV 96.5 97.4 RDW 13.1 14.2 PLT 181 167 BMP: Recent Labs 03/16/23184603/17/23444 NA 134* 137 K 4.7 4.3 CL 101 107 CO2 24 24 BUN 22* 20* CREATININE 3.07* 2.83* GLUCOSE 107* 110* CALCIUM 8.7 8.2* ANIONGAP 8 5 LIVER PROFILE: Recent Labs 03/16/231846 AST 26 ALT 15 BILITOT 0.3 ALKPHOS 74 PROT 7.2 PT/INR: No results for input(s): PROTIME, INR in the last 72 hours. CARDIAC ENZYMES: Recent Labs 03/16/231846 TROPONINI <0.012 Procalcitonin: No results found for: PROCAL COVID-19 PCR: No results for input(s): COVID19 in the last 72 hours. Significant Diagnostic Studies: EKG: See Report Echo: See Report sodium chloride, 100 mL/hr, Last Rate: 100 mL/hr (03/17/23 0434) cefTRIAXone, 1,000 mg, IntraVENous, q24h divalproex, 250 mg, Oral, TID DULoxetine, 60 mg, Oral, Daily heparin, 5,000 Units, SubCUTAneous, 3 times per day lamoTRIgine, 200 mg, Oral, Nightly levothyroxine, 175 mcg, Oral, Daily metoprolol tartrate, 100 mg, Oral, BID pantoprazole, 40 mg, Oral, qAM AC risperiDONE, 3 mg, Oral, Nightly tamsulosin, 0.4 mg, Oral, Daily traZODone, 200 mg, Oral, Nightly IMPRESSION & PLAN: Jessy Mckeon is a 58 y.o. female with PMH of Bipolar, Depression, Anxiety, Asperger syndrome, CKD 4, Hyponatremia, and Hypothyroidism who presented with Chief Complaint of AMS. ED VSS. Na 134, Cr 3, Hgb 10.8, Valproic acid 67, and UA was weakly positive for UTI. Urine culture obtained and she was started on Rocephin. Urine tox negative. Head CT negative for acute pathology. Admitted for further workup. States she makes her own decisions #AMS -Suspect 2/2 Psych etiology -A&O x 2 with poor insight -Urine tox negative -TSH -Ammonia -Consult Psych, known to Dr. Bowers -Does have 20 mcg/hr Butran patch on abdomen #Possible UTI -Urine culture pending -IV Rocephin Day #2 (03/17) #Elevated Cr #CKD 4 #Hyponatremia -Baseline Cr ~ 2.5 -IV saline #Low TSH -Free T4 1.74 #Bipolar #Depression #Anxiety #Asperger syndrome -Has undergone ECT -Continue home Depakote, Cymbalta, Risperdal, Trazodone, and PRN Klonopin -Valproic acid is 67 -OARRS reviewed: Klonopin and Butrans patch -Known to Dr. Bowers #Anemia -Had anemia workup in September 2022 that ruled out iron deficiency #Hypothyroidism -Continue home Synthroid #HTN -Continue home Lopressor #Urinary retention -Continue home Flomax #Body mass index is 45.73 kg/m ., BMI Classification: Body mass index is 45.73 kg/m . Morbidly Obese (>40.0) #DVT Prophylaxis -Heparin SQ #Disposition: TBD #Barriers to discharge: TBD Code status: Full Code Dr. Kevin Grimes [facility] Hospitalist Time spent: 85 minutes Has at least of one of these; Number and Complexity of Problems Addressed at the Encounter: -1 or more chronic illnesses with exacerbation, progression, or side effects of treatment -2 or more stable, chronic illnesses -1 acute illness with systemic symptoms -1 acute, complicated injury Risk of Complications and/or Morbidity or Mortality of Patient Management: -Prescription drug management documented in this encounter [facility] 03-17-2023 Nurse Note Patients medications have been locked up in the med room and labeled. [facility] 03-17-2023 Plan of care note Problem: Knowledge Deficit Goal: Patient/family/caregiver demonstrates understanding of disease process, treatment plan, medications, and discharge instructions Outcome: Progressing Problem: Potential for Compromised Skin Integrity Goal: Skin Integrity is Maintained or Improved Outcome: Progressing Goal: Nutritional status is improving Outcome: Progressing Problem: Urinary Incontinence Goal: Perineal skin integrity is maintained or improved Outcome: Progressing [facility] 03-17-2023 Emergency department Note Patient ambulated to wheelchair then the toilet with steadying assist. Mindy Jacobson RN 03/17/23 0314 [facility] 03-17-2023 Emergency department Note Patient ambulated to wheelchair then the toilet with steadying assist. Mindy Jacobson RN 03/17/23 0314 Pt provided with ice water and assisted with drinking. Ewelina Duncan 03/17/23 0131 Patient took home medication divalproex ER 250mg, lamotrigine 200mg, risperidone 6mg, and trazodone 200mg. Held clonazepam due to mental status not at baseline Mindy Jacobson RN 03/17/23 0013 Mother at bedside with patient medication from home as well as fast food. Patient sat up to eat. Mother verbalized understanding not to pass home medication until verified by MD Mindy Jacobson RN 03/16/232317 Call back from Dr. Sierra transferred to MD office Mindy Jacobson RN 03/16/232117 Called Torie at [facility] and requested call back from [facility] Mindy Jacobson RN 03/16/232051 Patient assisted to bedside commode Mindy Jacobson RN 03/16/232017 EMERGENCY DEPARTMENT ENCOUNTER Pt Name: Jessy Mckeon Birthdate 1965 Date of evaluation: 03/16/2023 ED Provider: Cameron Marquez MD CHIEF COMPLAINT Chief Complaint Patient presents with Altered Mental Status HISTORY OF PRESENT ILLNESS (Location/Symptom, Timing/Onset, Context/Setting, Quality, Duration, Modifying Factors, Severity) Note limiting factors. I wore appropriate PPE for the entirety of this encounter. 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 Altered Mental Status Presenting symptoms: confusion Presenting symptoms: no behavior changes, no combativeness, no disorientation, no lethargy, no memory loss, no partial responsiveness and no unresponsiveness Severity: Mild Most recent episode: Yesterday Episode history: Single Duration: 2 days Timing: Constant Progression: Improving Chronicity: New Context: not alcohol use, not dementia, not drug use, not head injury, not homeless, taking medications as prescribed, not skilled nursing resident, not recent change in medication, not recent illness and not recent infection Associated symptoms: no abdominal pain, normal movement, no agitation, no bladder incontinence, no decreased appetite, no depression, no difficulty breathing, no eye deviation, no fever, no hallucinations, no headaches, no light-headedness, no nausea, no palpitations, no rash, no seizures, no slurred speech, no suicidal behavior, no visual change, no vomiting and no weakness Jessy Mckeon is a 58 y.o. who presents to the emergency department with chief complaint of confusion Nursing Notes were reviewed. Limitations to history: None Outside historians: Family mother REVIEW OF SYSTEMS Review of Systems Constitutional: Negative for decreased appetite and fever. Cardiovascular: Negative for palpitations. Gastrointestinal: Negative for abdominal pain, nausea and vomiting. Genitourinary: Negative for bladder incontinence. Skin: Negative for rash. Neurological: Negative for seizures, weakness, light-headedness and headaches. Psychiatric/Behavioral: Positive for confusion. Negative for agitation, hallucinations and memory loss. All other systems reviewed and are negative. Pertinent positives and negatives as per HPI. PAST MEDICAL HISTORY Past Medical History: Diagnosis Date Acid reflux Anxiety Arthritis Asperger syndrome Bipolar disorder (HCC) Chronic kidney disease stage 4 kidney failure Chronic pain Depression Edema of both legs GERD (gastroesophageal reflux disease) Hemorrhoids Hyperlipidemia Hypertension Hypothyroidism Iron (Fe) deficiency anemia Nephrogenic diabetes insipidus (HCC) Pain management Retention of urine, unspecified Sciatica SOB (shortness of breath) GRANT Type II or unspecified type diabetes mellitus without mention of complication, not stated as uncontrolled (HCC) Urinary incontinence nightly SURGICAL HISTORY Past Surgical History: Procedure Laterality Date 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 buprenorphine (Butrans) 15 MCG/HR Place 20 patches on the skin Once. clonazePAM (KlonoPIN) 0.5 MG tablet Take 1 tablet (0.5 mg) by mouth 2 times daily as needed for anxiety. Qty: 60 tablet, Refills: 1 Associated Diagnoses: Bipolar affective disorder, remission status unspecified ([facility]); Panic disorder with agoraphobia divalproex (Depakote ER) 250 MG 24 hr tablet Take 1 tablet (250 mg) by mouth 3 times daily. Do not crush, chew, or split. Qty: 90 tablet, Refills: 1 Comments: QTY OF 90 IS NEEDED FOR 30 DS DULoxetine (Cymbalta) [address] capsule TAKE 1 CAPSULE BY MOUTH DAILY Qty: 30 capsule, Refills: 10 Incontinence Supply Disposable (Depend Pant Extra Large) misc 1 each in the morning and 1 each at noon and 1 each in the evening and 1 each before bedtime. Qty: 120 each, Refills: 11 Associated Diagnoses: Urge incontinence of urine lamoTRIgine (LaMICtal) 200 MG tablet TAKE 1 TABLET BY MOUTH NIGHTLY Qty: 30 tablet, Refills: 10 metoprolol tartrate (Lopressor) 100 MG tablet take 1 tablet by mouth IN THE MORNING AND 1 TABLET BEFORE BEDTIME Qty: 180 tablet, Refills: 0 omeprazole (PriLOSEC) [address] capsule TAKE 1 CAPSULE BY MOUTH EVERY MORNING BEFORE BREAKFAST Qty: 30 capsule, Refills: 10 risperiDONE (RisperDAL) 3 MG tablet TAKE 2 TABLETS BY MOUTH NIGHTLY Qty: 60 tablet, Refills: 10 Selenium 200 MCG capsule TAKE 1 CAPSULE BY MOUTH AT 8PM Qty: 30 capsule, Refills: 10 tamsulosin (Flomax) 0.4 MG 24 hr capsule Take 1 capsule (0.4 mg) by mouth daily. Qty: 30 capsule, Refills: 11 traZODone (Desyrel) 100 MG tablet TAKE 2 TABLETS BY MOUTH NIGHTLY Qty: 60 tablet, Refills: 10 ALLERGIES Benztropine, Diphenhydramine, Nsaids, and Other FAMILY HISTORY Family History Problem Relation Name Age of Onset Hypertension Mother Cancer Father Colon cancer Maternal Grandmother Cancer Brother SOCIAL HISTORY Social History Socioeconomic History Marital status: Single Tobacco Use Smoking status: Former Smokeless tobacco: Never Substance and Sexual Activity Alcohol use: No Alcohol/week: 0.0 standard drinks of alcohol Drug use: No Social Determinants of Health Intimate Partner Violence: Not At Risk (03/17/2023) Humiliation, Afraid, Rape, and Kick questionnaire Fear of Current or Ex-Partner: No Emotionally Abused: No Physically Abused: No Sexually Abused: No SCREENINGS PHYSICAL EXAM ED Triage Vitals [03/16/23 1741] Temp Heart Rate Resp BP 36.4 C (97.5 F) 71 14 137/79 SpO2 Temp Source Heart Rate Source Patient Position 100 % Oral Monitor Lying BP Location FiO2 (%) Right arm -- Physical Exam Vitals and nursing note reviewed. Exam conducted with a linoleum tile layer present. Constitutional: General: She is not in acute distress. Appearance: Normal appearance. She is obese. She is not ill-appearing, toxic-appearing or diaphoretic. HENT: Head: Normocephalic and atraumatic. Right Ear: Tympanic membrane, ear canal and external ear normal. Left Ear: Tympanic membrane, ear canal and external ear normal. Nose: Nose normal. No congestion or rhinorrhea. Mouth/Throat: Mouth: Mucous membranes are moist. Pharynx: Oropharynx is clear. No oropharyngeal exudate or posterior oropharyngeal erythema. Eyes: Extraocular Movements: Extraocular movements intact. Conjunctiva/sclera: Conjunctivae normal. Pupils: Pupils are equal, round, and reactive to light. Cardiovascular: Rate and Rhythm: Normal rate and regular rhythm. Pulses: Normal pulses. Heart sounds: Normal heart sounds. Pulmonary: Effort: Pulmonary effort is normal. Breath sounds: Normal breath sounds. Abdominal: General: Abdomen is flat. Bowel sounds are normal. Palpations: Abdomen is soft. Musculoskeletal: General: Normal range of motion. Cervical back: Normal range of motion and neck supple. Skin: General: Skin is warm. Capillary Refill: Capillary refill takes less than 2 seconds. Neurological: General: No focal deficit present. Mental Status: She is alert and oriented to person, place, and time. Mental status is at baseline. Cranial Nerves: No cranial nerve deficit. Sensory: No sensory deficit. Motor: No weakness. Coordination: Coordination normal. Gait: Gait normal. Deep Tendon Reflexes: Reflexes normal. Psychiatric: Mood and Affect: Mood normal. Behavior: Behavior normal. Thought Content: Thought content normal. Judgment: Judgment normal. DIAGNOSTIC RESULTS Procedures/EKG: EKG was reviewed by myself. Physician EKG interpretation can be found in [facility] RADIOLOGY (Per Emergency Physician): Interpretation per the Radiologist below, if available at the time of this note: CT head wo IV contrast Final Result No acute findings. Report Dictated on Electronically Signed By: Grant Dale MD Electronically Signed Date/Time: 03/16/2023 7:14 PM EDT ED BEDSIDE ULTRASOUND: Performed by ED Physician - none LABS: Labs Reviewed COMPLETE URINALYSIS - Abnormal Result Value Color, Urine Light Yellow Clarity, Urine Clear pH, Urine 6.0 Leukocytes, Urine 500 (*) Nitrite, Urine Negative Protein, Urine 100 (*) Glucose, Urine Normal Bilirubin, Urine Negative Ketones, Urine Negative Urobilinogen, Urine Normal Blood, Urine Negative Volume, Urine 12 mL RBC, Urine 0-2 WBC, Urine 6-10 (*) Squamous Epithelial, Urine 3-5 Bacteria, Urine Few (*) Mucus, Urine Few Amorphous Urates, Urine Few (*) SPECIFIC GRAVITY OF URINE (NUMERIC) 1.005 COMPREHENSIVE METABOLIC PANEL - Abnormal SODIUM 134 (*) POTASSIUM 4.7 CHLORIDE 101 CARBON DIOXIDE 24 ANION GAP 8 UREA NITROGEN 22 (*) CREATININE 3.07 (*) GLUCOSE 107 (*) CALCIUM 8.7 AST (SGOT) 26 ALT 15 ALKALINE PHOSPHATASE 74 ALBUMIN 3.7 BILIRUBIN, TOTAL 0.3 TOTAL PROTEIN 7.2 eGFR 17.2 (*) CBC WITH AUTO DIFFERENTIAL - Abnormal Auto WBC 6.3 RBC 3.44 (*) Hemoglobin 10.8 (*) Hematocrit 33.2 (*) MCV 96.5 MCH 31.4 MCHC 32.5 RDW 13.1 Platelets 181 MPV 9.4 Neutrophils Relative 54.2 Lymphocytes Relative 31.0 Monocytes Relative 10.5 (*) Eosinophils Relative 3.7 Basophils Relative 0.3 Immature Grans % 0.3 (*) Neutrophils Absolute 3.4 Lymphocytes Absolute 1.9 Monocytes Absolute 0.7 Eosinophils Absolute 0.2 Basophils Absolute 0.0 Immature Grans Absolute 0.0 CBC WITH AUTO DIFFERENTIAL - Abnormal Auto WBC 5.9 RBC 3.27 (*) Hemoglobin 10.2 (*) Hematocrit 31.8 (*) MCV 97.4 MCH 31.2 MCHC 32.0 RDW 14.2 Platelets 167 MPV 7.9 nRBC 0.2 Neutrophils Relative 48.9 Lymphocytes Relative 33.6 Monocytes Relative 13.0 (*) Eosinophils Relative 4.2 Basophils Relative 0.3 Neutrophils Absolute 2.9 Lymphocytes Absolute 2.0 Monocytes Absolute 0.8 Eosinophils Absolute 0.2 Basophils Absolute 0.0 BASIC METABOLIC PANEL - Abnormal SODIUM 137 POTASSIUM 4.3 CHLORIDE 107 CARBON DIOXIDE 24 UREA NITROGEN 20 (*) CREATININE 2.83 (*) GLUCOSE 110 (*) CALCIUM 8.2 (*) ANION GAP 5 eGFR 19.0 (*) TROPONIN I - Normal TROPONIN I <0.012 Narrative: Patients with high levels of Biotin oral intake (ie >5 mg/day) may have falsely decreased Troponin levels. LACTIC ACID, SEPSIS WITH REFLEX IF ELEVATED - Normal LACTIC ACID 2.0 VALPROIC ACID TOTAL - Normal VALPROIC ACID 67 URINE CULTURE COMPLETE URINALYSIS WITH REFLEX TO CULTURE Narrative: The following orders were created for panel order Urinalysis complete with reflex to Culture. Procedure Abnormality Status --------- ------ Complete Urinalysis[[id number]] Abnormal Final result Please view results for these tests on the individual orders. DRUGS OF ABUSE AMPHETAMINE SCREEN Negative BARBITURATES SCREEN Negative BENZODIAZEPINE SCREEN Negative COCAINE METAB. SCREEN Negative METHADONE SCREEN Negative OPIATES SCREEN Negative OXYCODONE SCREEN Negative PHENCYCLIDINE SCREEN Negative Narrative: The expected value for all of the drugs listed above is Negative. The following drugs or drug groups have been screened for by Immunoassay at the following thresholds: Amphetamine class (1000 ng/mL) Barbiturates (200 ng/mL) Benzodiazepines (200 ng/mL) Cocaine (300 ng/mL) Methadone (300 ng/mL) Opiates (300 ng/mL) Oxycodone (100 ng/mL) PCP (25 ng/mL) NOTE: These results are for medical treatment only. Analysis performed using non-forensic procedures. POSITIVE results are NOT confirmed by a more specific alternative method unless requested. If confirmation is needed, request confirmation under separate order. BASIC METABOLIC PANEL WITH MG REFLEX Narrative: The following orders were created for panel order Basic Metabolic Panel w/ Mg Reflex. Procedure Abnormality Status --------- ------ Basic metabolic panel[[id number]] Abnormal Final result Please view results for these tests on the individual orders. LAMOTRIGINE LEVEL All other labs were within normal range or not returned as of this dictation. EMERGENCY DEPARTMENT COURSE and DIFFERENTIAL DIAGNOSIS/MDM: Vitals: Vitals: 03/16/23 2225 03/16/23 2353 03/17/23 0253 03/17/23 0411 BP: 120/80 105/60 (!) 159/90 BP Location: Left arm Left arm Patient Position: Lying Pulse: 57 68 73 69 Resp: 15 20 12 17 Temp: 36.4 C (97.5 F) TempSrc: Temporal SpO2: 100% 97% 100% Weight: Height: 58 year old female, history of bipolar disorder, anxiety, comes to the ED for confusion. Patient noted she has felt confused for 2 days. No headache is noted. Patient has no fallen. She denies any use of alcohol. Patient does use pain patch for arthritis. On exam, she was nontoxic in appearance. Lungs were clear. S1 and S2 were noted. No focal abdominal tenderness was noted. NIH stroke scale was zero. Diff diagnosis included uti, electrolyte abnormality, cva, mi. Labs and urinalysis and ct of the head was performed. Diagnoses as of 03/17/23 0654 Urinary tract infection without hematuria, site unspecified Renal insufficiency Altered mental status, unspecified altered mental status type Medications clonazePAM (KlonoPIN) tablet 0.5 mg (has no administration in time range) divalproex (Depakote ER) 24 hr tablet 250 mg (has no administration in time range) DULoxetine (Cymbalta) DR capsule 60 mg (has no administration in time range) lamoTRIgine (LaMICtal) tablet 200 mg (has no administration in time range) levothyroxine (Synthroid, Levoxyl) tablet 175 mcg (175 mcg Oral Given 03/17/23447) metoprolol tartrate (Lopressor) tablet 100 mg (has no administration in time range) pantoprazole (ProtoNix) EC tablet 40 mg (40 mg Oral Given 03/17/23447) risperiDONE (RisperDAL) tablet 3 mg (has no administration in time range) tamsulosin (Flomax) 24 hr capsule 0.4 mg (has no administration in time range) traZODone (Desyrel) tablet 200 mg (has no administration in time range) acetaminophen (Tylenol) tablet 650 mg (has no administration in time range) Or acetaminophen (Tylenol) suppository 650 mg (has no administration in time range) ondansetron ODT (Zofran-ODT) disintegrating tablet 4 mg (has no administration in time range) Or ondansetron (Zofran) injection 4 mg (has no administration in time range) polyethylene glycol (PEG) 3350 (Miralax) packet 17 g (has no administration in time range) heparin injection 5,000 Units (5,000 Units SubCUTAneous Given 8/3/23 0446) sodium chloride 0.9 % infusion (100 mL/hr IntraVENous New Bag 03/17/234) cefTRIAXone (Rocephin) 1,000 mg in sodium chloride 0.9 % 50 mL IVPB Mini-Bag Plus (has no administration in time range) sodium chloride 0.9 % bolus 1,000 mL (0 mL IntraVENous Stopped 03/16/232044) cefTRIAXone (Rocephin) 1,000 mg in sodium chloride 0.9 % 50 mL IVPB Mini-Bag Plus (0 mg IntraVENous Stopped 03/16/232032) REVAL: CRITICAL CARE TIME None CONSULTS: None PROCEDURES: Unless otherwise noted below, none Procedures FINAL IMPRESSION 1. Urinary tract infection without hematuria, site unspecified 2. Renal insufficiency 3. Altered mental status, unspecified altered mental status type DISPOSITION Observation 03/16/2023 09:20:37 PM PATIENT REFERRED TO: No follow-up provider specified. DISCHARGE MEDICATIONS: Current Discharge Medication List (Comment: Please note this report has been produced using speech recognition software and may contain errors related to that system including errors in grammar, punctuation, and spelling, as well as words and phrases that may be inappropriate. If there are any questions or concerns please feel free to contact the dictating provider for clarification.) Cameron Marquez MD (electronically signed) Emergency Medicine Provider Cameron Marquez MD 03/17/2355 Emergency Department Encounter Location: [facility] ED Patient: Jessy Mckeon : 1965 Date of evaluation: 03/16/2023 ED Provider: Tyler Sawant MD Jessy Mckeon was signed out to me by my colleague, Dr. Marquez Please see initial documentation for details of the patient's initial ED presentation, history, physical exam, and completed studies. In brief, Jessy Mckeon is a 58 y.o. female that presented to the emergency department with concern for altered mental status, confusion, ongoing for 2 days, evaluated by my colleague, NIH = 0 per their evaluation, concern for metabolic process, work-up initiated including CT head, labs evaluation, signed out to be pending results of work-up. Labs obtained, interpreted by me, notable for creatinine 3.07 previously 2.39, unremarkable LFTs, sodium 134, lactate within normal limits, no leukocytosis, hemoglobin 10.8, urinalysis consistent with urinary tract infection, UDS negative CT head per radiologist interpretation, no acute findings EKG obtained, per my colleagues interpretation, notable for sinus rhythm, early R wave progression, probable LVH with secondary polarization abnormality, no acute changes compared to prior EKG. Troponin WNL Patient and family informed of findings, patient is in no apparent distress or discomfort on my reevaluation, nontoxic-appearing, she denies abdominal pain or back pain, I discussed concern for urinary tract infection as well as acute on chronic renal insufficiency, treated with IV fluids, will treat with ceftriaxone, management options discussed, patient/family elect for hospitalization for further antibiotics, further evaluation and management of renal dysfunction and confusion, discussed with admitting Dr. France at [facility], in agreement with plan for observation telemetry admission, patient stable for admission. Diagnosis: Acute on chronic renal insufficiency, urinary tract infection, altered mental status Diagnosis: Admission (Please note that portions of this note may have been completed with a voice recognition program. Efforts were made to edit the dictations but occasionally words are mis-transcribed.) Tyler Sawant MD Acute Care [facility] Tyler Sawant MD 03/16/232120 Jessy Mckeon, age 58, came to ED5 with family member. Family member stated she has altered mental status and says "I think its her sodium levels". Patient is AO x3. Patient says she has Diabetes Insipidus. Family member stated the dizziness started around 3 days ago. Vitals obtained. Call light within reach. documented in this encounter [facility] 03-17-2023 Emergency department Note Pt provided with ice water and assisted with drinking. Ewelina Duncan 03/17/23 0131 [facility] 03-17-2023 Emergency department Note Patient took home medication divalproex ER 250mg, lamotrigine 200mg, risperidone 6mg, and trazodone 200mg. Held clonazepam due to mental status not at baseline Mindy Jacobson RN 03/17/23 0013 [facility] 03-16-2023 Emergency department Note Mother at bedside with patient medication from home as well as fast food. Patient sat up to eat. Mother verbalized understanding not to pass home medication until verified by MD Mindy Jacobson RN 03/16/232317 [facility] 03-16-2023 Emergency department Note Call back from Dr. Sierra transferred to MD office Mindy Jacobson RN 03/16/232117 [facility] 03-16-2023 Emergency department Note Called Torie at [facility] and requested call back from [facility] Mindy Jacobson RN 03/16/232051 [facility] 03-16-2023 Emergency department Note Patient assisted to bedside commode Mindy Jacobson RN 03/16/232017 [facility] 03-16-2023 Note Sinus rhythm Rate 74 Abnormal R-wave progression, early transition Probable LVH with secondary repol abnrm Compared to ECG 12/23/2021 08:16:34 No significant changes Electronically Signed On 03-16-2023 18:40:49 EDT by Cameron Marquez JELENA 03-16-2023 Note Sinus rhythm Rate 74 Abnormal R-wave progression, early transition Probable LVH with secondary repol abnrm Compared to ECG 12/23/2021 08:16:34 No significant changes Electronically Signed On 03-16-2023 18:40:49 EDT by Cameron BOWLES 03-16-2023 Emergency department Triage note Jessy Mckeon, age 58, came to ED5 with family member. Family member stated she has altered mental status and says "I think its her sodium levels". Patient is AO x3. Patient says she has Diabetes Insipidus. Family member stated the dizziness started around 3 days ago. Vitals obtained. Call light within reach. [facility] 03-16-2023 Physician Emergency department Note EMERGENCY DEPARTMENT ENCOUNTER Pt Name: Jessy Mckeon Birthdate 1965 Date of evaluation: 03/16/2023 ED Provider: Cameron Marquez MD CHIEF COMPLAINT Chief Complaint Patient presents with Altered Mental Status HISTORY OF PRESENT ILLNESS (Location/Symptom, Timing/Onset, Context/Setting, Quality, Duration, Modifying Factors, Severity) Note limiting factors. I wore appropriate PPE for the entirety of this encounter. 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 Altered Mental Status Presenting symptoms: confusion Presenting symptoms: no behavior changes, no combativeness, no disorientation, no lethargy, no memory loss, no partial responsiveness and no unresponsiveness Severity: Mild Most recent episode: Yesterday Episode history: Single Duration: 2 days Timing: Constant Progression: Improving Chronicity: New Context: not alcohol use, not dementia, not drug use, not head injury, not homeless, taking medications as prescribed, not skilled nursing resident, not recent change in medication, not recent illness and not recent infection Associated symptoms: no abdominal pain, normal movement, no agitation, no bladder incontinence, no decreased appetite, no depression, no difficulty breathing, no eye deviation, no fever, no hallucinations, no headaches, no light-headedness, no nausea, no palpitations, no rash, no seizures, no slurred speech, no suicidal behavior, no visual change, no vomiting and no weakness Jessy Mckeon is a 58 y.o. who presents to the emergency department with chief complaint of confusion Nursing Notes were reviewed. Limitations to history: None Outside historians: Family mother REVIEW OF SYSTEMS Review of Systems Constitutional: Negative for decreased appetite and fever. Cardiovascular: Negative for palpitations. Gastrointestinal: Negative for abdominal pain, nausea and vomiting. Genitourinary: Negative for bladder incontinence. Skin: Negative for rash. Neurological: Negative for seizures, weakness, light-headedness and headaches. Psychiatric/Behavioral: Positive for confusion. Negative for agitation, hallucinations and memory loss. All other systems reviewed and are negative. Pertinent positives and negatives as per HPI. PAST MEDICAL HISTORY Past Medical History: Diagnosis Date Acid reflux Anxiety Arthritis Asperger syndrome Bipolar disorder (HCC) Chronic kidney disease stage 4 kidney failure Chronic pain Depression Edema of both legs GERD (gastroesophageal reflux disease) Hemorrhoids Hyperlipidemia Hypertension Hypothyroidism Iron (Fe) deficiency anemia Nephrogenic diabetes insipidus (HCC) Pain management Retention of urine, unspecified Sciatica SOB (shortness of breath) GRANT Type II or unspecified type diabetes mellitus without mention of complication, not stated as uncontrolled (HCC) Urinary incontinence nightly SURGICAL HISTORY Past Surgical History: Procedure Laterality Date 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 buprenorphine (Butrans) 15 MCG/HR Place 20 patches on the skin Once. clonazePAM (KlonoPIN) 0.5 MG tablet Take 1 tablet (0.5 mg) by mouth 2 times daily as needed for anxiety. Qty: 60 tablet, Refills: 1 Associated Diagnoses: Bipolar affective disorder, remission status unspecified ([facility]); Panic disorder with agoraphobia divalproex (Depakote ER) 250 MG 24 hr tablet Take 1 tablet (250 mg) by mouth 3 times daily. Do not crush, chew, or split. Qty: 90 tablet, Refills: 1 Comments: QTY OF 90 IS NEEDED FOR 30 DS DULoxetine (Cymbalta) [address] capsule TAKE 1 CAPSULE BY MOUTH DAILY Qty: 30 capsule, Refills: 10 Incontinence Supply Disposable (Depend Pant Extra Large) misc 1 each in the morning and 1 each at noon and 1 each in the evening and 1 each before bedtime. Qty: 120 each, Refills: 11 Associated Diagnoses: Urge incontinence of urine lamoTRIgine (LaMICtal) 200 MG tablet TAKE 1 TABLET BY MOUTH NIGHTLY Qty: 30 tablet, Refills: 10 metoprolol tartrate (Lopressor) 100 MG tablet take 1 tablet by mouth IN THE MORNING AND 1 TABLET BEFORE BEDTIME Qty: 180 tablet, Refills: 0 omeprazole (PriLOSEC) [address] capsule TAKE 1 CAPSULE BY MOUTH EVERY MORNING BEFORE BREAKFAST Qty: 30 capsule, Refills: 10 risperiDONE (RisperDAL) 3 MG tablet TAKE 2 TABLETS BY MOUTH NIGHTLY Qty: 60 tablet, Refills: 10 Selenium 200 MCG capsule TAKE 1 CAPSULE BY MOUTH AT 8PM Qty: 30 capsule, Refills: 10 tamsulosin (Flomax) 0.4 MG 24 hr capsule Take 1 capsule (0.4 mg) by mouth daily. Qty: 30 capsule, Refills: 11 traZODone (Desyrel) 100 MG tablet TAKE 2 TABLETS BY MOUTH NIGHTLY Qty: 60 tablet, Refills: 10 ALLERGIES Benztropine, Diphenhydramine, Nsaids, and Other FAMILY HISTORY Family History Problem Relation Name Age of Onset Hypertension Mother Cancer Father Colon cancer Maternal Grandmother Cancer Brother SOCIAL HISTORY Social History Socioeconomic History Marital status: Single Tobacco Use Smoking status: Former Smokeless tobacco: Never Substance and Sexual Activity Alcohol use: No Alcohol/week: 0.0 standard drinks of alcohol Drug use: No Social Determinants of Health Intimate Partner Violence: Not At Risk (03/17/2023) Humiliation, Afraid, Rape, and Kick questionnaire Fear of Current or Ex-Partner: No Emotionally Abused: No Physically Abused: No Sexually Abused: No SCREENINGS PHYSICAL EXAM ED Triage Vitals [03/16/23 1741] Temp Heart Rate Resp BP 36.4 C (97.5 F) 71 14 137/79 SpO2 Temp Source Heart Rate Source Patient Position 100 % Oral Monitor Lying BP Location FiO2 (%) Right arm -- Physical Exam Vitals and nursing note reviewed. Exam conducted with a linoleum tile layer present. Constitutional: General: She is not in acute distress. Appearance: Normal appearance. She is obese. She is not ill-appearing, toxic-appearing or diaphoretic. HENT: Head: Normocephalic and atraumatic. Right Ear: Tympanic membrane, ear canal and external ear normal. Left Ear: Tympanic membrane, ear canal and external ear normal. Nose: Nose normal. No congestion or rhinorrhea. Mouth/Throat: Mouth: Mucous membranes are moist. Pharynx: Oropharynx is clear. No oropharyngeal exudate or posterior oropharyngeal erythema. Eyes: Extraocular Movements: Extraocular movements intact. Conjunctiva/sclera: Conjunctivae normal. Pupils: Pupils are equal, round, and reactive to light. Cardiovascular: Rate and Rhythm: Normal rate and regular rhythm. Pulses: Normal pulses. Heart sounds: Normal heart sounds. Pulmonary: Effort: Pulmonary effort is normal. Breath sounds: Normal breath sounds. Abdominal: General: Abdomen is flat. Bowel sounds are normal. Palpations: Abdomen is soft. Musculoskeletal: General: Normal range of motion. Cervical back: Normal range of motion and neck supple. Skin: General: Skin is warm. Capillary Refill: Capillary refill takes less than 2 seconds. Neurological: General: No focal deficit present. Mental Status: She is alert and oriented to person, place, and time. Mental status is at baseline. Cranial Nerves: No cranial nerve deficit. Sensory: No sensory deficit. Motor: No weakness. Coordination: Coordination normal. Gait: Gait normal. Deep Tendon Reflexes: Reflexes normal. Psychiatric: Mood and Affect: Mood normal. Behavior: Behavior normal. Thought Content: Thought content normal. Judgment: Judgment normal. DIAGNOSTIC RESULTS Procedures/EKG: EKG was reviewed by myself. Physician EKG interpretation can be found in [facility] RADIOLOGY (Per Emergency Physician): Interpretation per the Radiologist below, if available at the time of this note: CT head wo IV contrast Final Result No acute findings. Report Dictated on Electronically Signed By: Grant Dale MD Electronically Signed Date/Time: 03/16/2023 7:14 PM EDT ED BEDSIDE ULTRASOUND: Performed by ED Physician - none LABS: Labs Reviewed COMPLETE URINALYSIS - Abnormal Result Value Color, Urine Light Yellow Clarity, Urine Clear pH, Urine 6.0 Leukocytes, Urine 500 (*) Nitrite, Urine Negative Protein, Urine 100 (*) Glucose, Urine Normal Bilirubin, Urine Negative Ketones, Urine Negative Urobilinogen, Urine Normal Blood, Urine Negative Volume, Urine 12 mL RBC, Urine 0-2 WBC, Urine 6-10 (*) Squamous Epithelial, Urine 3-5 Bacteria, Urine Few (*) Mucus, Urine Few Amorphous Urates, Urine Few (*) SPECIFIC GRAVITY OF URINE (NUMERIC) 1.005 COMPREHENSIVE METABOLIC PANEL - Abnormal SODIUM 134 (*) POTASSIUM 4.7 CHLORIDE 101 CARBON DIOXIDE 24 ANION GAP 8 UREA NITROGEN 22 (*) CREATININE 3.07 (*) GLUCOSE 107 (*) CALCIUM 8.7 AST (SGOT) 26 ALT 15 ALKALINE PHOSPHATASE 74 ALBUMIN 3.7 BILIRUBIN, TOTAL 0.3 TOTAL PROTEIN 7.2 eGFR 17.2 (*) CBC WITH AUTO DIFFERENTIAL - Abnormal Auto WBC 6.3 RBC 3.44 (*) Hemoglobin 10.8 (*) Hematocrit 33.2 (*) MCV 96.5 MCH 31.4 MCHC 32.5 RDW 13.1 Platelets 181 MPV 9.4 Neutrophils Relative 54.2 Lymphocytes Relative 31.0 Monocytes Relative 10.5 (*) Eosinophils Relative 3.7 Basophils Relative 0.3 Immature Grans % 0.3 (*) Neutrophils Absolute 3.4 Lymphocytes Absolute 1.9 Monocytes Absolute 0.7 Eosinophils Absolute 0.2 Basophils Absolute 0.0 Immature Grans Absolute 0.0 CBC WITH AUTO DIFFERENTIAL - Abnormal Auto WBC 5.9 RBC 3.27 (*) Hemoglobin 10.2 (*) Hematocrit 31.8 (*) MCV 97.4 MCH 31.2 MCHC 32.0 RDW 14.2 Platelets 167 MPV 7.9 nRBC 0.2 Neutrophils Relative 48.9 Lymphocytes Relative 33.6 Monocytes Relative 13.0 (*) Eosinophils Relative 4.2 Basophils Relative 0.3 Neutrophils Absolute 2.9 Lymphocytes Absolute 2.0 Monocytes Absolute 0.8 Eosinophils Absolute 0.2 Basophils Absolute 0.0 BASIC METABOLIC PANEL - Abnormal SODIUM 137 POTASSIUM 4.3 CHLORIDE 107 CARBON DIOXIDE 24 UREA NITROGEN 20 (*) CREATININE 2.83 (*) GLUCOSE 110 (*) CALCIUM 8.2 (*) ANION GAP 5 eGFR 19.0 (*) TROPONIN I - Normal TROPONIN I <0.012 Narrative: Patients with high levels of Biotin oral intake (ie >5 mg/day) may have falsely decreased Troponin levels. LACTIC ACID, SEPSIS WITH REFLEX IF ELEVATED - Normal LACTIC ACID 2.0 VALPROIC ACID TOTAL - Normal VALPROIC ACID 67 URINE CULTURE COMPLETE URINALYSIS WITH REFLEX TO CULTURE Narrative: The following orders were created for panel order Urinalysis complete with reflex to Culture. Procedure Abnormality Status --------- ------ Complete Urinalysis[[id number]] Abnormal Final result Please view results for these tests on the individual orders. DRUGS OF ABUSE AMPHETAMINE SCREEN Negative BARBITURATES SCREEN Negative BENZODIAZEPINE SCREEN Negative COCAINE METAB. SCREEN Negative METHADONE SCREEN Negative OPIATES SCREEN Negative OXYCODONE SCREEN Negative PHENCYCLIDINE SCREEN Negative Narrative: The expected value for all of the drugs listed above is Negative. The following drugs or drug groups have been screened for by Immunoassay at the following thresholds: Amphetamine class (1000 ng/mL) Barbiturates (200 ng/mL) Benzodiazepines (200 ng/mL) Cocaine (300 ng/mL) Methadone (300 ng/mL) Opiates (300 ng/mL) Oxycodone (100 ng/mL) PCP (25 ng/mL) NOTE: These results are for medical treatment only. Analysis performed using non-forensic procedures. POSITIVE results are NOT confirmed by a more specific alternative method unless requested. If confirmation is needed, request confirmation under separate order. BASIC METABOLIC PANEL WITH MG REFLEX Narrative: The following orders were created for panel order Basic Metabolic Panel w/ Mg Reflex. Procedure Abnormality Status --------- ------ Basic metabolic panel[[id number]] Abnormal Final result Please view results for these tests on the individual orders. LAMOTRIGINE LEVEL All other labs were within normal range or not returned as of this dictation. EMERGENCY DEPARTMENT COURSE and DIFFERENTIAL DIAGNOSIS/MDM: Vitals: Vitals: 03/16/23 2225 03/16/23 2353 03/17/23 0253 03/17/23 0411 BP: 120/80 105/60 (!) 159/90 BP Location: Left arm Left arm Patient Position: Lying Pulse: 57 68 73 69 Resp: 15 20 12 17 Temp: 36.4 C (97.5 F) TempSrc: Temporal SpO2: 100% 97% 100% Weight: Height: 58 year old female, history of bipolar disorder, anxiety, comes to the ED for confusion. Patient noted she has felt confused for 2 days. No headache is noted. Patient has no fallen. She denies any use of alcohol. Patient does use pain patch for arthritis. On exam, she was nontoxic in appearance. Lungs were clear. S1 and S2 were noted. No focal abdominal tenderness was noted. NIH stroke scale was zero. Diff diagnosis included uti, electrolyte abnormality, cva, mi. Labs and urinalysis and ct of the head was performed. Diagnoses as of 03/17/23 0654 Urinary tract infection without hematuria, site unspecified Renal insufficiency Altered mental status, unspecified altered mental status type Medications clonazePAM (KlonoPIN) tablet 0.5 mg (has no administration in time range) divalproex (Depakote ER) 24 hr tablet 250 mg (has no administration in time range) DULoxetine (Cymbalta) DR capsule 60 mg (has no administration in time range) lamoTRIgine (LaMICtal) tablet 200 mg (has no administration in time range) levothyroxine (Synthroid, Levoxyl) tablet 175 mcg (175 mcg Oral Given 03/17/23447) metoprolol tartrate (Lopressor) tablet 100 mg (has no administration in time range) pantoprazole (ProtoNix) EC tablet 40 mg (40 mg Oral Given 03/17/23447) risperiDONE (RisperDAL) tablet 3 mg (has no administration in time range) tamsulosin (Flomax) 24 hr capsule 0.4 mg (has no administration in time range) traZODone (Desyrel) tablet 200 mg (has no administration in time range) acetaminophen (Tylenol) tablet 650 mg (has no administration in time range) Or acetaminophen (Tylenol) suppository 650 mg (has no administration in time range) ondansetron ODT (Zofran-ODT) disintegrating tablet 4 mg (has no administration in time range) Or ondansetron (Zofran) injection 4 mg (has no administration in time range) polyethylene glycol (PEG) 3350 (Miralax) packet 17 g (has no administration in time range) heparin injection 5,000 Units (5,000 Units SubCUTAneous Given 03/17/23 0446) sodium chloride 0.9 % infusion (100 mL/hr IntraVENous New Bag 03/17/23 0434) cefTRIAXone (Rocephin) 1,000 mg in sodium chloride 0.9 % 50 mL IVPB Mini-Bag Plus (has no administration in time range) sodium chloride 0.9 % bolus 1,000 mL (0 mL IntraVENous Stopped 03/16/232044) cefTRIAXone (Rocephin) 1,000 mg in sodium chloride 0.9 % 50 mL IVPB Mini-Bag Plus (0 mg IntraVENous Stopped 03/16/232032) REVAL: CRITICAL CARE TIME None CONSULTS: None PROCEDURES: Unless otherwise noted below, none Procedures FINAL IMPRESSION 1. Urinary tract infection without hematuria, site unspecified 2. Renal insufficiency 3. Altered mental status, unspecified altered mental status type DISPOSITION Observation 03/16/2023 09:20:37 PM PATIENT REFERRED TO: No follow-up provider specified. DISCHARGE MEDICATIONS: Current Discharge Medication List (Comment: Please note this report has been produced using speech recognition software and may contain errors related to that system including errors in grammar, punctuation, and spelling, as well as words and phrases that may be inappropriate. If there are any questions or concerns please feel free to contact the dictating provider for clarification.) Cameron Marquez MD (electronically signed) Emergency Medicine Provider Cameron Marquez MD 03/17/23 [address] [place] Phone: 03-16-2023 Physician Emergency department Note Emergency Department Encounter Location: [facility] ED Patient: Jessy Mckeon : 1965 Date of evaluation: 03/16/2023 ED Provider: Tyler Sawant MD Jessy Mckeon was signed out to me by my colleague, Dr. Marquez Please see initial documentation for details of the patient's initial ED presentation, history, physical exam, and completed studies. In brief, Jessy Mckeon is a 58 y.o. female that presented to the emergency department with concern for altered mental status, confusion, ongoing for 2 days, evaluated by my colleague, NIH = 0 per their evaluation, concern for metabolic process, work-up initiated including CT head, labs evaluation, signed out to be pending results of work-up. Labs obtained, interpreted by me, notable for creatinine 3.07 previously 2.39, unremarkable LFTs, sodium 134, lactate within normal limits, no leukocytosis, hemoglobin 10.8, urinalysis consistent with urinary tract infection, UDS negative CT head per radiologist interpretation, no acute findings EKG obtained, per my colleagues interpretation, notable for sinus rhythm, early R wave progression, probable LVH with secondary polarization abnormality, no acute changes compared to prior EKG. Troponin WNL Patient and family informed of findings, patient is in no apparent distress or discomfort on my reevaluation, nontoxic-appearing, she denies abdominal pain or back pain, I discussed concern for urinary tract infection as well as acute on chronic renal insufficiency, treated with IV fluids, will treat with ceftriaxone, management options discussed, patient/family elect for hospitalization for further antibiotics, further evaluation and management of renal dysfunction and confusion, discussed with admitting Dr. France at [facility], in agreement with plan for observation telemetry admission, patient stable for admission. Diagnosis: Acute on chronic renal insufficiency, urinary tract infection, altered mental status Diagnosis: Admission (Please note that portions of this note may have been completed with a voice recognition program. Efforts were made to edit the dictations but occasionally words are mis-transcribed.) Tyler Sawant MD Acute Care [facility] Tyler Sawant MD 03/16/232120 [facility] 03-16-2023 Telephone encounter Note Noted and agreed [facility] 03-16-2023 Telephone encounter Note FYI [facility] 03-16-2023 Miscellaneous Notes Noted and agreed FYI S: Patient motherPita, spoke with [facility] nurse with patient verbal permission regarding increased confusion B: Onset of symptoms/concern 03/15/23 A: States patient is disoriented and is sleeping a lot compared to normal. States patient has cough with some congestion and bilateral ear pain. Denies fever, denies chest pain. R: Call EMS 911 now. Parent states they will transport via car. Parent understands care advice to not allow patient to transport self another adult should drive. No further needs at this time. Patient instructed to call back with new or worsening symptoms. Reason for Disposition [1] Difficult to awaken or acting confused (e.g., disoriented, slurred speech) AND [2] present now AND [3] new-onset Protocols used: Confusion - [id number] documented in this encounter [facility] 03-16-2023 Telephone encounter Note S: Patient mother, Pita, spoke with [facility] nurse with patient verbal permission regarding increased confusion B: Onset of symptoms/concern 03/15/23 A: States patient is disoriented and is sleeping a lot compared to normal. States patient has cough with some congestion and bilateral ear pain. Denies fever, denies chest pain. R: Call EMS 911 now. Parent states they will transport via car. Parent understands care advice to not allow patient to transport self another adult should drive. No further needs at this time. Patient instructed to call back with new or worsening symptoms. Reason for Disposition [1] Difficult to awaken or acting confused (e.g., disoriented, slurred speech) AND [2] present now AND [3] new-onset Protocols used: Confusion - [id number] [facility] 03-11-2023 Miscellaneous Notes Patient LVM on rx line stating she needs new prescription for her incontinence supplies. Returned call to patient and advised her new order was faxed to [facility] yesterday. She verbalizes understanding. Christine with [facility] left a VM stating they are sending new forms for Ashli to sign. Christine states there was another provider listed on the order form and she signed it, so they need the NPI and licence numbers and signature of the provider listed on the form to match what is sent back to them. Routing to APPs as FYI for when new forms come in. Pt left VM stating, "I want to make sure that my briefs aren't sent to the wrong building. It's [address], [address], [address]." Confirmed with Aster SAUCEDA that supplies were sent to [facility] and that correct address is in letter (scanned into media). Left VM relaying this information and also advising that she can follow up with her outpatient case manager through her insurance regarding medical supplies too per Vini RODRIGUEZ and Aster SAUCEDA. Closing encounter at this time. documented in this encounter [facility] 03-11-2023 Telephone encounter Note Patient LVM on rx line stating she needs new prescription for her incontinence supplies. Returned call to patient and advised her new order was faxed to [facility] yesterday. She verbalizes understanding. [facility] 03-03-2023 Telephone encounter Note Christine with [facility] left a VM stating they are sending new forms for Ashli to sign. Christine states there was another provider listed on the order form and she signed it, so they need the NPI and licence numbers and signature of the provider listed on the form to match what is sent back to them. Routing to APPs as FYI for when new forms come in. [facility] 03-03-2023 Miscellaneous Notes Christine with [facility] left a VM stating they are sending new forms for Ashli to sign. Christine states there was another provider listed on the order form and she signed it, so they need the NPI and licence numbers and signature of the provider listed on the form to match what is sent back to them. Routing to [facility] as FYI for when new forms come in. Pt left VM stating, "I want to make sure that my briefs aren't sent to the wrong building. It's [address], [address], [address]." Confirmed with Aster SAUCEDA that supplies were sent to [facility] and that correct address is in letter (scanned into media). Left VM relaying this information and also advising that she can follow up with her outpatient case manager through her insurance regarding medical supplies too per Vini RODRIGUEZ and Aster SAUCEDA. Closing encounter at this time. documented in this encounter [facility] 02-24-2023 Telephone encounter Note Pt left VM stating, "I want to make sure that my briefs aren't sent to the wrong building. It's [address], [address], [address]." Confirmed with Aster SAUCEDA that supplies were sent to [facility] and that correct address is in letter (scanned into media). Left VM relaying this information and also advising that she can follow up with her outpatient case manager through her insurance regarding medical supplies too per Vini RODRIGUEZ and Aster SAUCEDA. Closing encounter at this time. [facility] 02-23-2023 History of Present illness Narrative [facility] [address] [facility] [address] Dept: [phone] Dept Loc: [phone] Urology Telemedicine Visit Aster Sparks APRN, CNP 02/23/2023 at 1:56 PM Urology Office Visit PATIENT NAME: Jessy Mckeon DATE OF : 1965 REFERRING PROVIDER: No ref. provider found PCP: Edith Pierce MD TODAY'S DATE: 02/23/2023 CHIEF COMPLAINT: Chief Complaint Patient presents with Urinary Incontinence Urinary Retention Impression: Diagnoses and all orders for this visit: Urge incontinence of urine - Incontinence Supply Disposable (Depend Pant Extra Large) misc; 1 each in the morning and 1 each at noon and 1 each in the evening and 1 each before bedtime. - US retroperitoneum; Future Urinary retention - US retroperitoneum; Future Incontinence of feces, unspecified fecal incontinence type Still with ongoing symptoms of overactive bladder. Patient discontinue tamsulosin herself, she is not interested in resuming. Recommend renal ultrasound to assess the bladder and postvoid residual. Call with results. Letter created for incontinence supplies through [employer] per patient request. She requires 4 incontinence briefs per day for chronic urge urinary incontinence and fecal incontinence. Continue behavioral modifications. Education provided on timed voiding, creating drinking patterns (spreaing water intake through day, avoiding drinking water 2-3 hours prior to bedtime, and avoiding irritative foods/beverages), weight loss, and avoiding constipation. The patient was instructed to call the office or go to the nearest ER if worsening symptoms such as fever > 101F, inability to urinate, intractable nausea or vomiting, or uncontrolled pain. The patient verbalizes understanding. Follow-up in 1 year. Length of Visit: I affirm this is a visit with an established patient who has not had a related appointment within my department in the past 7 days or scheduled within the next 24 hours. Total Time: 11-20 were spent on the digital evaluation and management of this patient. Follow Up: Follow up in about 1 year (around 02/24/2024) for Urinary incontinence . Aster Sparks APRN, [facility] Subjective: Ms. Mckeon is a 58 y.o. female who presents to discuss history of urinary retention and urge urinary incontinence. Records have been reviewed The patient, Ms. Mckeon is a 58 y.o. female. Their identity was verified by name and date of . Those on the call: Patient. Jessy Mckeon has consented to this virtual visit telehealth encounter. Patient was seen today via Telehealth by agreement and consent in light of the current COVID-19 pandemic. I used the following Telehealth technology: Audio capability only. Total length of call 12 minutes. The patient was offered and advised video for a more comprehensive evaluation, but the patient declined or was unable to use video. Patient location: Patient Location: Home. This patient encounter is appropriate and reasonable under the circumstances given the patient's particular presentation at this time. The patient has been advised of the potential risks and limitations of this mode of treatment (including but not limited to the absence of in-person examination) and has agreed to be treated in a remote fashion in spite of them. Any and all of the patient's/patient's family's questions on this issue have been answered and I have made no promises or guarantees to the patient. The patient has also been advised to contact this office for worsening conditions or problems, and seek emergency medical treatment and/or call 911 if the patient deems either necessary. The patient stated that they are currently in the [facility]. If the patient is a minor, permission has been obtained by the parent or guardian for the patient to receive medical care at this visit. HPI Jessy Mckeon is a 58 y.o. year old female patient with history of urinary retention and urge urinary incontinence. She presents today for follow up, she has been feeling fair. Reports she ran out of tamsulosin prescription, but does not desire to continue taking medication as she feels it did not help her/caused her to urinate too much. Voids every 1-2 hours. Reports it is difficult to tell at times due to urinary incontinence. Nocturia: Yes, wears 1 depends per night. UUI: Yes, wears 3 depends per day. DENNYS: Sometimes. Urgency: Yes. Dysuria: Denies. Hematuria: Denies. Stream: Strong. Feels she is able to empty her bladder. She would like refills of depends/incontinence briefs. She is incontinent of bowel. Review of Systems Constitutional: Negative for chills and fever. Gastrointestinal: Negative for abdominal pain, nausea and vomiting. Genitourinary: Positive for difficulty urinating and urgency. Negative for decreased urine volume, dysuria, flank pain, frequency and hematuria. Tobacco History Tobacco Use: Medium Risk (02/23/2023) Patient History Smoking Tobacco Use: Former Smokeless Tobacco Use: Never Passive Exposure: Not on file Past Medical History: Past Medical History: Diagnosis Date Acid reflux Anxiety Arthritis Bipolar disorder (HCC) Chronic kidney disease stage 4 kidney failure Depression Edema of both legs GERD (gastroesophageal reflux disease) Hemorrhoids Hyperlipidemia Hypertension Hypothyroidism Iron (Fe) deficiency anemia Nephrogenic diabetes insipidus (HCC) Retention of urine, unspecified Sciatica SOB (shortness of breath) GRANT Type II or unspecified type diabetes mellitus without mention of complication, not stated as uncontrolled (HCC) Urinary incontinence nightly Past Surgical History: Past Surgical History: Procedure Laterality Date 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 Do not start before January 28, 2023., Disp: 60 tablet, Rfl: 1 divalproex (Depakote ER) 250 MG 24 hr tablet, TAKE 1 TABLET BY MOUTH 3 TIMES DAILY, Disp: 21 tablet, Rfl: 10 DULoxetine (Cymbalta) [address] capsule, TAKE 1 CAPSULE BY MOUTH DAILY, Disp: 30 capsule, Rfl: 10 Incontinence Supply Disposable (Depend Pant Extra Large) misc, 1 each in the morning and 1 each at noon and 1 each in the evening and 1 each before bedtime., Disp: 120 each, Rfl: 11 lamoTRIgine (LaMICtal) 200 MG tablet, TAKE 1 TABLET BY MOUTH NIGHTLY, Disp: 30 tablet, Rfl: 10 metoprolol tartrate (Lopressor) 100 MG tablet, take 1 tablet by mouth IN THE MORNING AND 1 TABLET BEFORE BEDTIME, Disp: 180 tablet, Rfl: 0 omeprazole (PriLOSEC) [address] capsule, TAKE 1 CAPSULE BY MOUTH EVERY MORNING BEFORE BREAKFAST, Disp: 30 capsule, Rfl: 10 risperiDONE (RisperDAL) 3 MG tablet, TAKE 2 TABLETS BY MOUTH NIGHTLY, Disp: 60 tablet, Rfl: 10 Selenium 200 MCG capsule, TAKE 1 CAPSULE BY MOUTH AT 8PM, Disp: 30 capsule, Rfl: 10 tamsulosin (Flomax) 0.4 MG 24 hr capsule, Take 1 capsule (0.4 mg) by mouth daily., Disp: 30 capsule, Rfl: 11 traZODone (Desyrel) 100 MG tablet, TAKE 2 TABLETS BY MOUTH NIGHTLY, Disp: 60 tablet, Rfl: 10 Vitals: There were no vitals taken for this visit. Physical Exam Labs: Hemoglobin Date Value Ref Range Status 07/15/2022 10.6 (L) 11.7 - 16.0 g/dL Final 04/05/2022 11.8 11.7 - 16.0 g/dL Final 03/24/2022 11.0 (L) 11.7 - 16.0 g/dL Final 09/07/2021 11.6 (L) 11.7 - 16.0 g/dL Final Hematocrit Date Value Ref Range Status 07/15/2022 32.0 (L) 35.0 - 47.0 % Final Radiology Review: XR chest 1 view Narrative: [id number] Exam Date/Time: 07/15/2022 14:19 Procedure: XR CHEST 1 VIEW Ordering Provider: GIFFORD SCOTT Reason For Exam: EXAMINATION: CHEST RADIOGRAPH (SINGLE VIEW AP OR PA) Clinical History: COUGH Comparison: Chest radiograph 03/03/2018 RESULT: See impression Impression: Lines, tubes, and devices: None. Lungs and pleura: No consolidation. No pleural effusion or pneumothorax. Cardiomediastinal silhouette: Normal cardiomediastinal silhouette. Report Dictated on Electronically Signed By: Jose F Solomon Electronically Signed Date/Time: 07/15/2022 2:48 PM EST An electronic signature was used to authenticate this note. Please note that portions of this chart were dictated using [employer] voice recognition software. It is possible that typos and/or omissions and/or substitutions of words and/or phrases may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 closed fracture- Primary documented in this encounter [facility] note* Diagnosis Acute pain of left knee- Primary documented in this encounter [facility] note* Diagnosis Other chronic pain- Primary documented in this encounter [facility] note* Diagnosis Fall, initial encounter- Primary Fall, initial encounter Acute pain of left knee Pressure injury of left thigh, stage 3 (HCC) Chronic bilateral low back pain with bilateral sciatica documented in this encounter [facility] note* Diagnosis Fall, initial encounter- Primary Contusion of left elbow, initial encounter Contusion of left knee, initial encounter documented in this encounter [facility] noteNo assessment information availableWThe [facility] Work Phone: Evaluation [facility]* Diagnosis Hyponatremia- Primary Hyposmolality and/or hyponatremia Hyponatremia Hyposmolality and/or hyponatremia Weakness Other malaise and fatigue Impaired mobility and ADLs [facility] Attachments The following attachments cannot be sent through Care Everywhere. * Intertrigo ([place]) documented in this [facility] Discharge instructions* Attachments The following attachments cannot be sent through Care Everywhere. * [facility] ED ([place]) documented in this [facility] Discharge instructions* Attachments The following attachments cannot be sent through Care Everywhere. * Knee Pain Discharge Instructions ([place]) documented in this [facility] Discharge instructions* Attachments The following attachments cannot be sent through Care Everywhere. * Acute Pain Discharge Instructions, Adult ([place]) documented in this [facility] hospital for referral (narrative)No reason for referral information availableWThe [facility] Work Phone: Summary Purpose Family History No Family History Records FoundNo Family History Records FoundNo Family History Records FoundNo Family History Records FoundNo Family History Records FoundNo Family History Records FoundNo Family History Records FoundNo Family History Records Found Advance Directives No Advanced Directives Records Found Date Activated Date Inactivated Comments 08/03/2024 10:25 PM 08/10/2024 3:34 PM Date Activated Date Inactivated Comments 06/28/2024 6:59 PM 07/04/2024 7:57 PM Date Activated Date Inactivated Comments 03/17/2023 4:21 AM 03/23/2023 7:41 PM Date Activated Date Inactivated Comments 06/28/2024 6:59 PM 07/04/2024 7:57 PM Date Activated Date Inactivated Comments 03/17/2023 4:21 AM 03/23/2023 7:41 PM Documents on File Type Date Recorded Patient Sessions Clerk Expl anation Advance Directives and Living Will 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 Grades 1 Through 5 Teacher Latest Code Status on File Code Status Date Activated Date Inactivated Comments Full Code 05/19/2018 7:41 PM 06/02/2018 8:24 PM Full Code 02/15/2018 1:20 AM 02/22/2018 6:44 PM Full Code 02/12/2018 5:53 AM 02/15/2018 12:52 AM Full Code 10/06/2017 3:56 AM 10/12/2017 4:43 PM Full Code 06/11/2017 5:09 AM 06/15/2017 7:28 PM Documents on File Type Date Recorded Patient Sessions Clerk Expl anation ACP-Advance Directive ACP-Power of Grades 1 Through 5 Teacher Documents on File Type Date Recorded Patient Sessions Clerk Expl anation Advance Directive(s) 09/06/2017 2:44 PM Latest Code Status on File Code Status Date Activated Date Inactivated Comments Full Code 03/17/2023 4:21 AM Latest Code Status on File Code Status Date Activated Date Inactivated Comments Full Code 03/17/2023 4:21 AM 03/23/2023 7:41 PM Date Activated Date Inactivated Comments 03/17/2023 4:21 AM 03/23/2023 7:41 PM Date Activated Date Inactivated Comments 06/28/2024 6:59 PM Date Activated Date Inactivated Comments 08/03/2024 10:25 PM Date Activated Date Inactivated Comments 08/03/2024 10:25 PM 08/10/2024 3:34 PM Date Activated Date Inactivated Comments 06/28/2024 6:59 PM 07/04/2024 7:57 PM Date Activated Date Inactivated Comments 03/17/2023 4:21 AM 03/23/2023 7:41 PM Documents on File Type Date Recorded Patient Sessions Clerk Expl anation DNR (Do Not Resuscitate) 10/08/2024 12:00 PM Date Activated Date Inactivated Comments 10/03/2024 1:45 PM 10/06/2024 6:27 PM Date Activated Date Inactivated Comments 08/03/2024 10:25 PM 08/10/2024 3:34 PM Date Activated Date Inactivated Comments 06/28/2024 6:59 PM 07/04/2024 7:57 PM Date Activated Date Inactivated Comments 03/17/2023 4:21 AM 03/23/2023 7:41 PM Documents on File Type Date Recorded Patient Sessions Clerk Expl anation DNR (Do Not Resuscitate) 10/08/2024 12:00 PM Date Activated Date Inactivated Comments 10/03/2024 1:45 PM 10/06/2024 6:27 PM Date Activated Date Inactivated Comments 08/03/2024 10:25 PM 08/10/2024 3:34 PM Date Activated Date Inactivated Comments 06/28/2024 6:59 PM 07/04/2024 7:57 PM Date Activated Date Inactivated Comments 03/17/2023 4:21 AM 03/23/2023 7:41 PM Date Activated Date Inactivated Comments 12/30/2024 6:19 PM Date Activated Date Inactivated Comments 10/03/2024 1:45 PM 10/06/2024 6:27 PM Date Activated Date Inactivated Comments 08/03/2024 10:25 PM 08/10/2024 3:34 PM Date Activated Date Inactivated Comments 06/28/2024 6:59 PM 07/04/2024 7:57 PM Date Activated Date Inactivated Comments 03/17/2023 4:21 AM 03/23/2023 7:41 PM Date Activated Date Inactivated Comments 12/30/2024 6:19 PM 01/15/2025 5:04 PM Date Activated Date Inactivated Comments 10/03/2024 1:45 PM 10/06/2024 6:27 PM Date Activated Date Inactivated Comments 08/03/2024 10:25 PM 08/10/2024 3:34 PM Date Activated Date Inactivated Comments 06/28/2024 6:59 PM 07/04/2024 7:57 PM Date Activated Date Inactivated Comments 03/17/2023 4:21 AM 03/23/2023 7:41 PM Date Activated Date Inactivated Comments 12/30/2024 6:19 PM 01/15/2025 5:04 PM Date Activated Date Inactivated Comments 03/07/2025 8:36 AM 03/15/2025 4:10 PM Date Activated Date Inactivated Comments 12/30/2024 6:19 PM 01/15/2025 5:04 PM Date Activated Date Inactivated Comments 10/03/2024 1:45 PM 10/06/2024 6:27 PM Date Activated Date Inactivated Comments 08/03/2024 10:25 PM 08/10/2024 3:34 PM Date Activated Date Inactivated Comments 06/28/2024 6:59 PM 07/04/2024 7:57 PM Assessments Diagnosis Encounter for long-term (current) use of high-risk medication Encounter for long-term (current) use of other medications Diagnosis Essential hypertension Unspecified essential hypertension Acquired hypothyroidism Unspecified hypothyroidism Chief Complaint and Reason for Visit Chief Complaint Admit Date LAB WORK January 17, 2025 5:00a m LABWORK January 21, 2025 5:00a m HALFWAY LAB WORK January 28, 2025 4: 00am HALFWAY LAB WORK February 04, 2025 4: 00am LABWORK February 08, 2025 5:00 am LABWORK 2025 5:00 am HALFWAY LAB WORK February 18, 2025 4:0 0am Additional Source Comments INFORMATION SOURCE (unrecogn ized section and content) DATE CREATED AUTHOR 09/02/2018 [facility] DATE CREATED AUTHOR AUTHOR'S ORGANIZ ATION 08/22/2020 [facility] DATE CREATED AUTHOR AUTHOR'S ORGANIZ ATION 12/25/2021 [facility] DATE CREATED AUTHOR AUTHOR'S ORGANIZ ATION 05/15/2022 [facility] DATE CREATED AUTHOR AUTHOR'S ORGANIZ ATION 12/02/2023 [facility] DATE CREATED AUTHOR AUTHOR'S ORGANIZ ATION 03/17/2025 [facility] [employer] [facility] DATE CREATED AUTHOR AUTHOR'S ORGANIZ ATION 03/19/2025 [facility] Care Teams (unrecognized sec tion and content) Pot Pusher Relationship Specialty Start Date End Date Edith Pierce MD PCP - General Family Medicine 03/20/15 Pot Pusher Relationship Specialty Start Date End Date Edith Pierce MD PCP - General Family Medicine 03/20/15 Pot Pusher Relationship Specialty Start Date End Date Edith Pierce MD PCP - General Family Medicine 03/20/15 Pot Pusher Relationship Specialty Start Date End Date Edith Pierce [address] [place] [address] PCP - General Family Practice 02/19/16 Saurabh Esposito MD Physician Endocrinology 04/30/16 Ewelina Pruett [address] [place] [address] Physician Nephrology 04/30/16 Nick Green MD [address] [address] Physician Urology 04/30/16 Dario Verduzco MD Psychiatry 04/01/17 Pot Pusher Relationship Specialty Start Date End Date Edith Pierce [address] [place], [place] [address] PCP - General Family Practice 02/19/16 Ewelina Pruett [address] [place] [address] Physician Nephrology 04/30/16 Nick Green MD [address] [address] Physician Urology 04/30/16 Dario Verduzco MD Psychiatry 04/01/17 Shania Cho MD [address] [facility] [address] [place] [phone] Endocrinology 01/06/22 Pot Pusher Relationship Specialty Start Date End Date Edith Pierce MD PCP - General Family Medicine 03/20/15 Pot Pusher Relationship Specialty Start Date End Date Edith Pierce MD PCP - General Family Medicine 03/20/15 Pot Pusher Relationship Specialty Start Date End Date Edith Pierce MD PCP - General Family Medicine 03/20/15 Pot Pusher Relationship Specialty Start Date End Date Edith Pierce MD PCP - General Family Medicine 03/20/15 Pot Pusher Relationship Specialty Start Date End Date Edith Pierce MD [address] [place], [place] [id number] PCP - General Family Medicine 02/19/16 Ewelina Pruett [address] [place] [phone] Physician Nephrology 04/30/16 Nick Green MD [address] [address] Physician Urology 04/30/16 Dario Verduzco MD [address] [address] Psychiatry 04/01/17 Shania Cho MD [address] [facility] [address] [place] [address] Endocrinology 01/06/22 Pot Pusher Relationship Specialty Start Date End Date Edith Pierce MD [address] [place], [place] [address] PCP - General Family Medicine 02/19/16 Ewelina Pruett [address] [place] [address] Physician Nephrology 04/30/16 Nick Green MD [address] [address] Physician Urology 04/30/16 Dario Verduzco MD [address] [address] Psychiatry 04/01/17 Shania Cho MD 6 [facility] [address] [place] [phone] Endocrinology 01/06/22 Pot Pusher Relationship Specialty Start Date End Date Edith Pierce MD [address] [place], [place] [address] PCP - General Family Medicine 02/19/16 Ewelina Pruett [address] [place] [address] Physician Nephrology 04/30/16 Nick Green MD [address] [address] Physician Urology 04/30/16 Dario Verduzco MD [address] [address] Psychiatry 04/01/17 Shania Cho MD [address] [facility] [address] [place] [phone] Endocrinology 01/06/22 Pot Pusher Relationship Specialty Start Date End Date Edith Pierce MD [address] [place] [address] PCP - General Family Medicine 02/19/16 Ewelina Pruett [address] [place] [address] Physician Nephrology 04/30/16 Nick Green MD [address] [address] Physician Urology 04/30/16 Dario Verduzco MD [address] [address] Psychiatry 04/01/17 Shania Cho MD 6 [facility] [address] [place] [phone] Endocrinology 01/06/22 Pot Pusher Relationship Specialty Start Date End Date Edith Pierce MD [address] [place], [place] [address] PCP - General Family Medicine 02/19/16 Ewelina Pruett [address] [place] [address] Physician Nephrology 04/30/16 Nick Green MD [address] [address] Physician Urology 04/30/16 Dario Verduzco MD [address] [address] Psychiatry 04/01/17 Shania Cho MD [address] [facility] [address] [place] [phone] Endocrinology 01/06/22 Pot Pusher Relationship Specialty Start Date End Date Edith Pierce MD [address] [place] [address] PCP - General Family Medicine 02/19/16 Ewelina Pruett [address] [place] [address] Physician Nephrology 04/30/16 Nick Green MD [address] [address] Physician Urology 04/30/16 Dario Verduzco MD [address] [address] Psychiatry 04/01/17 Shania Cho MD [address] [address] Endocrinology 01/06/22 Pot Pusher Relationship Specialty Start Date End Date Edith Pierce MD [address] [place] [address] PCP - General 01/13/19 Pot Pusher Relationship Specialty Start Date End Date Edith Pierce MD [address] [place] [address] PCP - General 01/13/19 Pot Pusher Relationship Specialty Start Date End Date Edith Pierce MD [address] [place] [address] PCP - General 01/13/19 Pot Pusher Relationship Specialty Start Date End Date Edith Pierce MD [address] [place] [address] PCP - General 01/13/19 Pot Pusher Relationship Specialty Start Date End Date Edith Pierce MD [address] [place] [address] PCP - General 01/13/19 Pot Pusher Relationship Specialty Start Date End Date Edith Pierce MD [address] [place] [address] PCP - General 01/13/19 Pot Pusher Relationship Specialty Start Date End Date Edith Pierce MD [address] [place] [address] PCP - General 01/13/19 Pot Pusher Relationship Specialty Start Date End Date Edith Pierce MD [address] [place] [address] PCP - General 01/13/19 Pot Pusher Relationship Specialty Start Date End Date Edith Pierce MD [address] [place] [address] PCP - General 01/13/19 Pot Pusher Relationship Specialty Start Date End Date Edith Pierce MD [address] [place] [address] PCP - General 01/13/19 Pot Pusher Relationship Specialty Start Date End Date Edith Pierce MD [address] [place] [address] PCP - General 01/13/19 Pot Pusher Relationship Specialty Start Date End Date Edith Pierce MD [address] [place] [address] PCP - General 01/13/19 Nick Green MD [address] [place] [id number] Surgeon Urology 06/22/23 Pot Pusher Relationship Specialty Start Date End Date Edith Pierce MD [address] [place] [address] Rd [address] [place] [address] PCP - General 01/13/19 Nick Green MD [address] [facility] [address] [place] [address] Surgeon Urology 06/22/23 Pot Pusher Relationship Specialty Start Date End Date Edith Pierce MD [address] [place] [address] [address] [place] [address] PCP - General 01/13/19 Nick Green MD [address] [place] [address] [address] [place] [address] Surgeon Urology 06/22/23 Pot Pusher Relationship Specialty Start Date End Date Edith Pierce MD [address] [place] [address] [address] [place] [address] PCP - General 01/13/19 Nick Green MD [address] [place] [address] [address] [place] [address] Surgeon Urology 06/22/23 Pot Pusher Relationship Specialty Start Date End Date Edith Pierce MD [address] [place] [address] [address] [place] [address] PCP - General 01/13/19 Nick Green MD [address] [place] [address] Surgeon Urology 06/22/23 Pot Pusher Relationship Specialty Start Date End Date Edith Pierce MD [address] [place] [address] PCP - General 01/13/19 Nick Green MD [address] [place] [address] Surgeon Urology 06/22/23 Pot Pusher Relationship Specialty Start Date End Date Edith Pierce MD [address] [place] [address] PCP - General 01/13/19 Nick Green MD [address] [place] [address] Surgeon Urology 06/22/23 Pot Pusher Relationship Specialty Start Date End Date Edith Pierce MD [address] [place] [address] PCP - General 01/13/19 Nick Green MD [address] [place] [address] Surgeon Urology 06/22/23 Pot Pusher Relationship Specialty Start Date End Date Edith Pierce MD [address] [place] [address] PCP - General 01/13/19 Nick Green MD [address] [place] [address] Surgeon Urology 06/22/23 Pot Pusher Relationship Specialty Start Date End Date Lishnevski, Edith, MD [address] [place] [address] PCP - General 01/13/19 Nick Green MD [address] [facility] [address] [place] [address] Surgeon Urology 06/22/23 Pot Pusher Relationship Specialty Start Date End Date Edith Pierce MD [address] [place] [address] PCP - General 01/13/19 Nick Green MD 95 [facility] [address] [place] [address] Surgeon Urology 06/22/23 Pot Pusher Relationship Specialty Start Date End Date Edith Pierce MD [address] [facility] [address] [place] [address] PCP - General Family Medicine 02/19/16 Ewelina Pruett [address] [place] [address] Physician Nephrology 04/30/16 Nick Green MD [address] [place] [address] Physician Urology 04/30/16 Dario Verduzco MD [address] [address] Psychiatry 04/01/17 Shania Cho MD [address] [place] [address] [place] [phone] Endocrinology 01/06/22 Pot Pusher Relationship Specialty Start Date End Date Edith Pierce MD [address] [place] [address] Rd [address] [place] [address] PCP - General 01/13/19 Nick Green MD [address] [place] [address] Surgeon Urology 06/22/23 Pot Pusher Relationship Specialty Start Date End Date Edith Pierce MD [address] [place] [address] Rd [address] [place] [address] PCP - General 01/13/19 Nick Green MD [address] [place] [address] Surgeon Urology 06/22/23 Pot Pusher Relationship Specialty Start Date End Date Edith Pierce MD [address] [place] [address] Rd [address] [place] [address] PCP - General 01/13/19 Nick Green MD [address] [place] [address] Surgeon Urology 06/22/23 Pot Pusher Relationship Specialty Start Date End Date Edith Pierce MD [address] [place] [address] Rd [address] [place] [address] PCP - General 01/13/19 Nick Green MD [address] [place] [address] Surgeon Urology 06/22/23 Pot Pusher Relationship Specialty Start Date End Date Edith Pierce MD [address] [place] [address] PCP - General 01/13/19 Nick Green MD [address] [place] [address] Surgeon Urology 06/22/23 Familia Jeronimo MD [address] [place] [address] Consulting Physician Hematology and Oncology 06/14/24 Pot Pusher Relationship Specialty Start Date End Date Edith Pierce MD [address] [place] [address] PCP - General 01/13/19 Nick Green MD [address] [place] [address] Surgeon Urology 06/22/23 Familia Jeronimo MD [address] [facility] [address] [place] [address] Consulting Physician Hematology and Oncology 06/14/24 Pot Pusher Relationship Specialty Start Date End Date Edith Pierce MD [address] [place] [address] PCP - General 01/13/19 Nick Green MD [address] [place] [address] Surgeon Urology 06/22/23 Familia Jeronimo MD [address] [place] [address] Consulting Physician Hematology and Oncology 06/14/24 Pot Pusher Relationship Specialty Start Date End Date Edith Pierce MD [address] [place] [address] Rd [address] [place] [address] PCP - General 01/13/19 Nick Green MD [address] [place] [address] Surgeon Urology 06/22/23 Familia Jeronimo MD [address] [place] [address] Consulting Physician Hematology and Oncology 06/14/24 Pot Pusher Relationship Specialty Start Date End Date Edith Pierce MD [address] [place] [address] PCP - General 01/13/19 Pot Pusher Relationship Specialty Start Date End Date Edith Pierce MD [address] [place] [address] PCP - General 01/13/19 Pot Pusher Relationship Specialty Start Date End Date Edith Pierce MD [address] [place] [address] [address] [place] [address] PCP - General 01/13/19 Nick Green MD [address] [place] [address] Surgeon Urology 06/22/23 Familia Jeronimo MD [address] [place] [address] Consulting Physician Hematology and Oncology 06/14/24 Pot Pusher Relationship Specialty Start Date End Date Edith Pierce MD [address] [place] [address] PCP - General 01/13/19 Nick Green MD [address] [place] [address] Surgeon Urology 06/22/23 Familia Jeronimo MD [address] [place] [address] Consulting Physician Hematology and Oncology 06/14/24 Pot Pusher Relationship Specialty Start Date End Date Edith Pierce MD [address] [place] [address] PCP - General 01/13/19 Nick Green MD [address] [place] [address] Surgeon Urology 06/22/23 Familia Jeronimo MD [address] [facility] [address] [place] [address] Consulting Physician Hematology and Oncology 06/14/24 Pot Pusher Relationship Specialty Start Date End Date Edith Pierce MD [address] [place] [address] PCP - General 01/13/19 Nick Green MD [address] [place] [address] Surgeon Urology 06/22/23 Familia Jeronimo MD [address] [place] [address] Consulting Physician Hematology and Oncology 06/14/24 Katarina De Souza, RN Registered Nurse Senior Data Mining Analyst Manager 08/13/24 Pot Pusher Relationship Specialty Start Date End Date Edith Pierce MD [address] [place] [address] PCP - General 01/13/19 Nick Green MD [address] [place] [address] Surgeon Urology 06/22/23 Familia Jeronimo MD [address] [facility] [address] [place] [address] Consulting Physician Hematology and Oncology 06/14/24 Pot Pusher Relationship Specialty Start Date End Date Edith Pierce MD [address] [place] [address] PCP - General 01/13/19 Nick Green MD [address] [place] [address] Surgeon Urology 06/22/23 Familia Jeronimo MD [address] [facility] [address] [place] [address] Consulting Physician Hematology and Oncology 06/14/24 Pot Pusher Relationship Specialty Start Date End Date Edith Pierce MD [address] [place] [address] PCP - General 01/13/19 Nick Green MD [address] [place] [address] Surgeon Urology 06/22/23 Familia Jeronimo MD [address] [place] [address] Consulting Physician Hematology and Oncology 06/14/24 Pot Pusher Relationship Specialty Start Date End Date Edith Pierce MD [address] [place] [address] PCP - General 01/13/19 Nick Green MD [address] [place] [address] Surgeon Urology 06/22/23 Familia Jeronimo MD [address] [place] [address] Consulting Physician Hematology and Oncology 06/14/24 Pot Pusher Relationship Specialty Start Date End Date Edith Pierce MD [address] [place] [address] PCP - General 01/13/19 Nick Green MD [address] [place] [address] Surgeon Urology 06/22/23 Familia Jeronimo MD [address] [place] [address] Consulting Physician Hematology and Oncology 06/14/24 Pot Pusher Relationship Specialty Start Date End Date Edith Pierce MD [address] [place] [address] PCP - General 01/13/19 Nick Green MD [address] [place] [address] Surgeon Urology 06/22/23 Familia Jeronimo MD [address] [place] [address] Consulting Physician Hematology and Oncology 06/14/24 Pot Pusher Relationship Specialty Start Date End Date Edith Pierce MD [address] [place] [address] PCP - General 01/13/19 Nick Green MD [address] [place] [address] Surgeon Urology 06/22/23 Familia Jeronimo MD [address] [facility] [address] [place] [address] Consulting Physician Hematology and Oncology 06/14/24 Pot Pusher Relationship Specialty Start Date End Date Edith Pierce MD [address] [place] [address] PCP - General 01/13/19 Nick Green MD [address] [place] [address] Surgeon Urology 06/22/23 Familia Jeronimo MD [address] [facility] [address] [place] [address] Consulting Physician Hematology and Oncology 06/14/24 Pot Pusher Relationship Specialty Start Date End Date Edith Pierce MD [address] [place] [address] PCP - General 01/13/19 Nick Green MD [address] [place] [address] Surgeon Urology 06/22/23 Familia Jeronimo MD [address] [place] [address] Consulting Physician Hematology and Oncology 06/14/24 Pot Pusher Relationship Specialty Start Date End Date Edith Pierce MD [address] [place] [address] PCP - General 01/13/19 Nick Green MD [address] [place] [address] Surgeon Urology 06/22/23 Familia Jeronimo MD [address] [facility] [address] [place] [address] Consulting Physician Hematology and Oncology 06/14/24 Pot Pusher Relationship Specialty Start Date End Date Edith Pierce MD [address] [place] [address] PCP - General 01/13/19 Nick Green MD [address] [place] [address] Surgeon Urology 06/22/23 Familia Jeronimo MD [address] [place] [address] Consulting Physician Hematology and Oncology 06/14/24 Pot Pusher Relationship Specialty Start Date End Date Edith Pierce MD [address] [place] [address] PCP - General 01/13/19 Nick Green MD [address] [place] [address] Surgeon Urology 06/22/23 Familia Jeronimo MD [address] [place] [address] Consulting Physician Hematology and Oncology 06/14/24 Pot Pusher Relationship Specialty Start Date End Date Edith Pierce MD [address] [place] [address] PCP - General 01/13/19 Nick Green MD [address] [place] [address] Surgeon Urology 06/22/23 Familia Jeronimo MD [address] [place] [address] Consulting Physician Hematology and Oncology 06/14/24 Team Status: Active Member Role/Relationship Status Dates Mary REDDY Attending Provider Active Star t: January 17, 2025 Team Status: Active Member Role/Relationship Status Dates Mary REDDY Attending Provider Active Star t: January 21, 2025 Team Status: Active Member Role/Relationship Status Dates Mary REDDY Attending Provider Active Star t: January 28, 2025 Mary REDDY Referring Provider Active Star t: January 28, 2025 Team Status: Active Member Role/Relationship Status Dates Mary REDDY Attending Provider Active Star t: February 04, 2025 Mary REDDY Referring Provider Active Star t: February 04, 2025 Team Status: Active Member Role/Relationship Status Dates Mary REDDY Attending Provider Active Star t: February 08, 2025 Team Status: Inactive Member Role/Relationship Status Dates Mary REDDY Attending Provider Active Star t: 2025 End: 2025 Team Status: Active Member Role/Relationship Status Dates Mary REDDY Attending Provider Active Star t: February 18, 2025 Mary REDDY Referring Provider Active Star t: February 18, 2025 Team Status: Active Member Role/Relationship Status Dates Mary REDDY Attending Provider Active Star t: February 25, 2025 Pot Pusher Relationship Specialty Start Date End Date Edith Pierce MD [address] [facility] [address] [place], [place] [address] PCP - General 01/13/19 Nick Green MD [address] [place] [address] Surgeon Urology 06/22/23 Familia Jeronimo MD [address] [place] [address] Consulting Physician Hematology and Oncology 06/14/24 Source Comments (unrecognize d section and content) In the event this informatio n is protected by the Federal Confidentiality of Alcohol and Drug Abuse Patient Records regulations: The Federal rules restrict any use of the information to criminally investigate or prosecute any alcohol or drug abuse patient.[facility] HospitalIn the event this information is protected by the Federal Confidentiality of Alcohol and Drug Abuse Patient Records regulations: The Federal rules restrict any use of the information to criminally investigate or prosecute any alcohol or drug abuse patient.[facility] HospitalIn the event this information is protected by the Federal Confidentiality of Alcohol and Drug Abuse Patient Records regulations: The Federal rules restrict any use of the information to criminally investigate or prosecute any alcohol or drug abuse patient.[facility] HospitalIn the event this information is protected by the Federal Confidentiality of Alcohol and Drug Abuse Patient Records regulations: The Federal rules restrict any use of the information to criminally investigate or prosecute any alcohol or drug abuse patient.[facility] HospitalIn the event this information is protected by the Federal Confidentiality of Alcohol and Drug Abuse Patient Records regulations: The Federal rules restrict any use of the information to criminally investigate or prosecute any alcohol or drug abuse patient.[facility] HospitalIn the event this information is protected by the Federal Confidentiality of Alcohol and Drug Abuse Patient Records regulations: The Federal rules restrict any use of the information to criminally investigate or prosecute any alcohol or drug abuse patient.[facility] HospitalIn the event this information is protected by the Federal Confidentiality of Alcohol and Drug Abuse Patient Records regulations: The Federal rules restrict any use of the information to criminally investigate or prosecute any alcohol or drug abuse patient.[facility] HospitalIn the event this information is protected by the Federal Confidentiality of Alcohol and Drug Abuse Patient Records regulations: The Federal rules restrict any use of the information to criminally investigate or prosecute any alcohol or drug abuse patient.[facility] HospitalIn the event this information is protected by the Federal Confidentiality of Alcohol and Drug Abuse Patient Records regulations: The Federal rules restrict any use of the information to criminally investigate or prosecute any alcohol or drug abuse patient.[facility] HospitalIn the event this information is protected by the Federal Confidentiality of Alcohol and Drug Abuse Patient Records regulations: The Federal rules restrict any use of the information to criminally investigate or prosecute any alcohol or drug abuse patient.[facility] Reason for Visit (unrecogniz ed section and content) Reason Comments Refill Request Levothyroxine Reason Comments Hypothyroidism Reason Comments Orders Reason Comments Refill Request Synthroid Reason Comments Appointment Reason Comments Refill Request levothyroxine Reason Comments Refill Request Levothyroxine Reason Comments Refill Request Reason Onset Date Comments Refill Request levothyroxine Refill Request 12/01/2022 Reason Comments Med Refill Reason Comments Urinary Incontinence Urinary Retention Reason Onset Date Comments Other 02/24/2023 Medical supply q uestion Reason Onset Date Comments Altered Mental Status 03/16/2023 Reason Comments Altered Mental Status Specialty Diagnoses / Procedures Referred By Contac t Referred To Contact Diagnoses Urinary tract infection Renal insufficiency Urinary tract infection without hematuria, site unspecified Altered mental status, unspecified altered mental status type Procedures [id number] tract infection [id number] insufficiency Ana Sierra MD [address] [place] [address] [facility] [address] [place] [id number] Referral ID Status Reason Start Date Expiration Date Visits Re quested Visits Authorized [id number] 1 Reason Onset Date Comments Med Refill 04/21/2023 Reason Onset Date Comments Med Refill 05/10/2023 Reason Comments Follow-up Was also in hospital twice recently pt reports Reason Comments Urinary Incontinence Yearly follow up Pr esto XXL maximum absorbency Reason Onset Date Comments Forms/questionnaires 06/07/2023 Reason Comments Altered Mental Status Independent living sent pt in for altered mental status.pt is a&o x4. Workers at facility is worried that she might have taken to many of her pills but could not state what. Pt states that she is here for nausea and vomiting. Reason Comments Shortness of Breath Patient complaining of shortness of breath. EMS states that the facility told them she was COVID + but she is not aware of such. This nurse is familiar with this patient and she arrives at baseline. Patient is speaking in full sentences and does not appear to be in any distress at this time. Patient states that she does have body wide pain but denies chest pain. Reason Onset Date Comments Med Refill 09/06/2023 Reason Onset Date Comments Med Refill 09/16/2023 Reason Onset Date Comments Med Refill 06/14/2023 Reason Onset Date Comments Med Refill 11/21/2023 Reason Onset Date Comments Reschedule 02/28/24 02/02/2024 Reason Onset Date Comments Appointment Request 03/15/2024 Reason Comments New Patient Anemia blood disorde r? Specialty Diagnoses / Procedures Referred By Nehemias cason Referred To Contact Hematology and Oncology Diagnoses anemia Procedures CA OFFICE/OUTPATIENT NEW HIGH MDM 60 MINUTES Carlota Phillips [address], [address], [place] [address] Phone: tel: fax: Familia Jeronimo MD [address] [place] [address] Phone: tel: fax: Referral ID Status Reason Start Date Expiration Date V isits Requested Visits Authorized [id number] Pending Review 05/31/2024 05/31/2025 1 1 Reason Comments Weakness, Gen Specialty Diagnoses / Procedures Referred By Nehemias t Referred To Contact Diagnoses Acute cystitis without hematuria Altered mental status, unspecified altered mental status type Procedures . Estephania Gonzalez MD [address] [place] [address] Phone: tel: fax: [facility] Medical Surgical Unit MSU [address] [place] [address] Phone: tel: Referral ID Status Reason Start Date Expiration Date Visits Re quested Visits Authorized [id number] 1 1 Reason Comments Joint Pain Specialty Diagnoses / Procedures Referred By Nehemias t Referred To Contact Diagnoses Peripheral edema Failure to thrive in adult Fluid overload Hypervolemia, unspecified hypervolemia type Anemia, unspecified type Chronic kidney disease, unspecified CKD stage Procedures . Mariann Byrnes MD [address] [place] [address] Phone: tel: fax: [facility] Cardiac Progressive Care Unit PCU [address] [place] [address] Phone: tel: Referral ID Status Reason Start Date Expiration Date Visits Re quested Visits Authorized [id number] 1 1 Reason Onset Date Comments Appointment 08/23/2024 Reason Comments Hospital Follow-up [facility] Reason Comments Fall Reason Onset Date Comments Orders 11/07/2024 Reason Comments Fall Head Injury Reason Onset Date Comments Other 12/12/2024 [facility] Nurs e Reason Comments Groin Pain Reason Onset Date Comments Other 12/25/2024 [facility]- [facility] Reason Comments Fall Reason Comments Knee Pain L knee pain s/p fall yesterday. Patient was evaluated yesterday and given a splint to her hand. Patient is now C/O knee pain Reason Comments Head Injury EMS reports fall at facility with "bumped head." Reason Onset Date Comments Home Visit 12/28/2024 Reason Comments Fall Pt comes from assist ed living for multiple falls. Per EMS, squad has been out about 9 times to assist pt. She has been getting weaker, recently broke left arm in fall, unable to thrive at home. A&Ox4. Denies hitting head, reports dizziness from pain medication. Uses rolator at home. Specialty Diagnoses / Procedures Referred By Contreanna t Referred To Contact Diagnoses Fall, initial encounter Acute pain of left knee Procedures . Lissett Gonzalez MD [address] [place] [address] Phone: tel: fax: [facility] Respiratory Unit [address] [place] [address] Phone: tel: Referral ID Status Reason Start Date Expiration Date Visits Re quested Visits Authorized [id number] 1 1 Reason Comments Fall Pt from assisted riki ing, slid off the edge of her couch. Pt reports left knee pain. Staff reports she had a fall earlier today. Reason Comments Weakness, Gen Per EMS "she lives i n assisted living and is unable to take care of herself, she said she wants to go to [facility] which [facility] a [facility]." Fall EMS was called for a lift assist, she slid from her chair to the floor. Specialty Diagnoses / Procedures Referred By Nehemias t Referred To Contact Diagnoses Hyponatremia Procedures .. Clara Wyatt, [address] [place] [address] Phone: tel: fax: [facility] EMERGENCY DEPT [address] [place] [address] Phone: tel: fax: Referral ID Status Reason Start Date Expiration Date Visits Re quested Visits Authorized [id number] 1 1 Scheduled Active and Recently Administ ered Medications (unrecognized section and content) Medication Order 03/21/2023 03/22/2023 03/23/2023 amLODIPine (Norvasc) tablet 10 mg (CANCELED) 10 mg, Oral, Daily, First dose (after last modification) on Tue03/23/23 at 0900 0829 (Given - Provider: PAUL OSBORNE) amLODIPine (Norvasc) tablet 5 mg (CANCELED) 5 mg, Oral, Daily, First dose on Tue03/22/23 at 1215 1225 (Given - Provider: PAUL OSBORNE) amLODIPine (Norvasc) tablet 5 mg (COMPLETED) 5 mg, Oral, Once, On Tue03/22/23 at 1545, For 1 dose 1634 (Given - Provider: PAUL OSBORNE) amLODIPine (Norvasc) tablet 5 mg 5 mg, Oral, Daily, First dose (after last modification) on Kayli 03/24/23 at 0900 buprenorphine (Butrans) 20 MCG/HR 1 patch 1 patch, TransDERmal, Administer over 7 Days, Weekly, First dose (after last modification) on [place] 03/20/23 at 1645, Verified by kbg on 03/20/23 Do not cut patch. Rotate Butrans application site weekly, applying to upper outer arm, upper chest, upper back, or side of chest. Do not reapply to same site within 3 weeks. May use first aid tape or semipermeable adhesive dressings to re-adhere if patch begins to pull away from skin. When removing, fold adhesive side of patch to itself before disposing, or per policy., Drug Name: Butran 20 mcg/hr patch, Form: patch, Length of Therapy: Indefinite, How soon needed? (normally 72 hrs needed to procure): Other, see admin instructions, Reason for Non-Formulary: Has Butran patch on; replaces every Tuesday................. .. 1515 (Due: Medicatio n Removed - Provider: Automatic Discharge Provider - Comment: Time automatically adjusted from order being discontinued) divalproex (Depakote ER) 24 hr tablet 250 mg 250 mg, Oral, 3 times daily, First dose on Tue03/17/23 at 0900, Do not crush, chew, or split. 0801 (Given - Provider: Afua Suárez RN)1530 (Given - Provider: Afua Suárez RN)2007 (Given - Provider: Santa Lama RN) 0824 (Given - Provider: PAUL OSBORNE)1354 (Given - Provider: PAUL OSBORNE)195 (Given - Provider: Santa Lama RN) 0831 (Given - Provider: PAUL OSBORNE)1313 (Given - Provider: PAUL OSBORNE) DULoxetine (Cymbalta) DR capsule 60 mg 60 mg, Oral, Daily, First dose on Tue03/17/23 at 0900, Do not crush or chew. 0800 (Given - Provider: Afua Suárez RN) 0823 (Given - Provider: PAUL OSBORNE) 08 (Given - Provider: PAUL OSBORNE) heparin injection 5,000 Units 5,000 Units, SubCUTAneous, Every 8 hours scheduled (3 times per day), First dose on Tue03/17/23 at 0600 0600 (Not Given - Provider: Santa Lama RN - Reason: Patient/family refused)1400 (Not Given - Provider: Afua Suárez RN - Reason: Patient/family refused)2200 (Not Given - Provider: Santa Lama RN - Reason: Patient/family refused) 0600 (Not Given - Provider: Santa Lama RN - Reason: Patient/family refused)1353 (Not Given - Provider: PAUL OSBORNE - Reason: Patient/family refused)2200 (Not Given - Provider: Santa Lama RN - Reason: Patient/family refused) 0600 (Not Given - Provider: Santa Lama RN - Reason: Patient/family refused)1313 (Not Given - Provider: PAUL OSBORNE - Reason: Patient/family refused) hydrALAZINE (Apresoline) tablet 50 mg 50 mg, Oral, 3 times daily, First dose on Tue03/22/23 at 1400 1354 (Given - Provider: PAUL OSBORNE)195 (Given - Provider: Santa Lama RN) 0830 (Given - Provider: PAUL OSBORNE)131 (Given - Provider: PAUL OSBORNE) lamoTRIgine (LaMICtal) tablet 100 mg 100 mg, Oral, Nightly, First dose (after last modification) on Tue03/17/23 at 2100 2007 (Given - Provider: Santa Lama RN) 1953 (Given - Provider: Santa Lama RN) levothyroxine (Synthroid, Levoxyl) tablet 175 mcg 175 mcg, Oral, Daily, First dose on Tue03/17/23 at 0700, Tube feeding (TF) interaction, obtain physician order to manage, recommend holding TF for 30 minutes before and after dose. 0433 (Given - Provider: Santa Lama RN) 0524 (Given - Provider: Santa Lama RN) 0531 (Given - Provider: Santa Lama RN) metoprolol tartrate (Lopressor) tablet 100 mg 100 mg, Oral, 2 times daily, First dose on Tue03/17/23 at 0900, Hold for HR < 60 0801 (Given - Provider: Afua Suárez, IDALIA)2008 (Given - Provider: Santa Lama RN) 08 (Not Given - Provider: PAUL OSBORNE - Reason: Order parameters not met)1953 (Given - Provider: Santa Lama RN) 829 (Given - Provider: PAUL OSBORNE) pantoprazole (ProtoNix) EC tablet 40 mg 40 mg, Oral, Daily before breakfast, First dose on Kayli 03/17/23 at 0700, Substituted for omeprazole (Prilosec). Do not crush, chew, or split. 0434 (Given - Provider: Santa Lama RN) 0525 (Given - Provider: Santa Lama RN) 05 (Given - Provider: Santa Lama RN) risperiDONE (RisperDAL) tablet 3 mg 3 mg, Oral, Nightly, First dose on Kayli 03/17/23 at 2099 2007 (Given - Provider: Santa Lama RN) 1953 (Given - Provider: Santa Lama RN) senna-docusate sodium (Senokot-S) 8.6-50 MG tablet 2 tablet 2 tablet, Oral, 2 times daily, First dose on Kayli 03/17/23 at 1045 0800 (Given - Provider: Afua Suárez RN)2099 (Not Given - Provider: Santa Lama RN - Reason: Patient/family refused) 821 (Given - Provider: PAUL OSBORNE)2099 (Not Given - Provider: Santa Lama RN - Reason: Other) 828 (Given - Provider: PAUL OSBORNE) tamsulosin (Flomax) 24 hr capsule 0.4 mg 0.4 mg, Oral, Daily, First dose on Kayli 03/17/23 at 0900, Do not crush, chew, or split. 08 (Given - Provider: Afua Suárez RN) 08 (Given - Provider: PAUL OSBORNE) 08 (Given - Provider: PAUL OSBORNE) traZODone (Desyrel) tablet 100 mg 100 mg, Oral, Nightly, First dose (after last modification) on Kayli 03/17/23 at 2099 2007 (Given - Provider: Santa Lama RN) 1952 (Given - Provider: Santa Lama RN) PRN Medication Order 03/21/2023 03/22/2023 03/23/2023 acetaminophen (Tylenol) suppository 650 mg(Linked Group 1) 650 mg, Rectal, Every 6 hours PRN, mild pain (1-3), fever, For temp greater than 100.4 F (38 C), Starting on Kayli 03/17/23 at 0419, Administer if oral route cannot be used. Maximum dose of acetaminophen is 4000 mg from all sources in 24 hours. 1207 (See Alternative - Provider: Afua Suárez RN)2007 (See Alternative - Provider: Santa Lama RN) 523 (See Alternative - Provider: Santa Lama RN)1957 (See Alternative - Provider: Santa Lama RN) 1045 (See Alternative - Provider: PAUL OSBORNE) acetaminophen (Tylenol) tablet 650 mg(Linked Group 1) 650 mg, Oral, Every 6 hours PRN, mild pain (1-3), fever, For temp greater than 100.4 F (38 C), Starting on Kayli 03/17/23 at 0419, Maximum dose of acetaminophen is 4000 mg from all sources in 24 hours. 1207 (Given - Provider: Afua Suárez RN)2007 (Given - Provider: Santa Lama RN) 523 (Given - Provider: Santa Lama RN)1957 (Given - Provider: Santa Lama RN) 1045 (Given - Provider: PAUL OSBORNE) clonazePAM (KlonoPIN) tablet 0.25 mg 0.25 mg, Oral, 3 times daily PRN, anxiety, Starting on Kayli 03/17/23 at 1641 1207 (Given - Provider: Afua Suárez RN)2007 (Given - Provider: Santa Lama RN) 523 (Given - Provider: Santa Lama RN)1634 (Given - Provider: PAUL OSBORNE) 0035 (Given - Provider: Santa Lama RN) ondansetron (Zofran) injection 4 mg(Linked Group 2) 4 mg, IntraVENous, Every 6 hours PRN, nausea, vomiting, Starting on Kayli 03/17/23 at 0419, 1st Line. Give IV if patient is unable to take orally. If inadequate response within 60 minutes, proceed to next-line agent or contact provider if no further options ordered. ondansetron ODT (Zofran-ODT) disintegrating tablet 4 mg(Linked Group 2) 4 mg, Oral, Every 8 hours PRN, nausea, vomiting, Starting on Kayli 03/17/23 at 0419, 1st Line. If inadequate response within 60 minutes, proceed to next-line agent or contact provider if no further options ordered. Patient should allow tablet to dissolve on tongue. Do not remove from blister pack until just before administering. polyethylene glycol (PEG) 3350 (Miralax) packet 17 g 17 g, Oral, Daily PRN, constipation, Starting on Kayli 03/17/23 at 0419, 1st line for treatment of constipation - give scheduled if no bowel movement in past 24 hours. Linked Groups Order Group 1: acetaminophen (Tylenol) tablet 650 mgJump to med 650 mg, Oral, Every 6 hours PRN, mild pain (1-3), fever, For temp greater than 100.4 F (38 C), Starting on Kayli 03/17/23 at 0419
Maximum dose of acetaminophen is 4000 mg from all sources in 24 hours.
Or acetaminophen (Tylenol) suppository 650 mgJump to med 650 mg, Rectal, Every 6 hours PRN, mild pain (1-3), fever, For temp greater than 100.4 F (38 C), Starting on Kayli 03/17/23 at 0419
Administer if oral route cannot be used. Maximum dose of acetaminophen is 4000 mg from all sources in 24 hours.
Group 2: ondansetron ODT (Zofran-ODT) disintegrating tablet 4 mgJump to med 4 mg, Oral, Every 8 hours PRN, nausea, vomiting, Starting on Kayli 03/17/23 at 0419
1st Line. If inadequate response within 60 minutes, proceed to next-line agent or contact provider if no further options ordered. Patient should allow tablet to dissolve on tongue. Do not remove from blister pack until just before administering.
Or ondansetron (Zofran) injection 4 mgJump to med 4 mg, IntraVENous, Every 6 hours PRN, nausea, vomiting, Starting on Kayli 03/17/23 at 0419
1st Line. Give IV if patient is unable to take orally. If inadequate response within 60 minutes, proceed to next-line agent or contact provider if no further options ordered.
Scheduled Medication Order 07/02/2024 07/03/2024 07/04/2024 amLODIPine (Norvasc) tablet 5 mg 5 mg, Oral, Daily, First dose on Tue06/28/24 at 1900 0851 (Given - Provider: Ashli Pop RN) 1005 (Given - Provider: Dinesh Clark) 0852 (Given - Provider: Justine Valentine LPN) buprenorphine (Butrans) 5 MCG/HR 2 patch 2 patch, TransDERmal, Administer over 168 Hours, Once, On Tue06/28/24 at 1945, For 1 dose, Do not cut patch. Rotate Butrans application site weekly, applying to upper outer arm, upper chest, upper back, or side of chest. Do not reapply to same site within 3 weeks. May use first aid tape or semipermeable adhesive dressings to re-adhere if patch begins to pull away from skin. When removing, fold adhesive side of patch to itself before disposing, or per policy. 1752 (Due: Medicatio n Removed - Provider: Automatic Discharge Provider - Comment: Time automatically adjusted from order being discontinued) cephalexin (Keflex) capsule 500 mg (CANCELED) 500 mg, Oral, 3 times daily, First dose on Tue07/01/24 at 1400, Suspected Indication (Select all that apply): Urinary Tract Infection 0851 (Given - Provider: Ashli Pop RN)1322 (Given - Provider: Meg Wiggins RN)1958 (Given - Provider: Holli Shafer RN) 1005 (Given - Provider: Dinesh Clark)1400 (Canceled Entry - Provider: Yajaira Arora RN) cholecalciferol (Vitamin D-3) tablet 1,000 Units 1,000 Units, Oral, Daily, First dose on Tue07/04/24 at 0900 0853 (Given - Provider: Justine Valentine LPN) divalproex (Depakote ER) 24 hr tablet 250 mg 250 mg, Oral, 3 times daily with meals, First dose on Tue06/28/24 at 1930, Do not crush, chew, or split. 0851 (Given - Provider: Ashli Pop RN)1322 (Given - Provider: Meg Wiggins RN)1803 (Given - Provider: Meg Wiggins RN) 1014 (Given - Provider: Dinesh Clark)1457 (Given - Provider: Dinesh Clark)1849 (Given - Provider: Yajaira Arora RN) 0859 (Given - Provider: Justine Valentine LPN)1202 (Given - Provider: Justine Valentine LPN)1700 (Canceled Entry - Provider: Automatic Discharge Provider - Comment: Automatically canceled at discontinue of medication order) DULoxetine (Cymbalta) DR capsule 60 mg 60 mg, Oral, Daily, First dose on Kayli 06/28/24 at 1900, Do not crush or chew. 0851 (Given - Provider: Ashli Pop RN) 1005 (Given - Provider: Dinesh Clark) 0851 (Given - Provider: Justine Valentine LPN) furosemide (Lasix) tablet 20 mg (CANCELED) 20 mg, Oral, Daily, First dose on Kayli 06/28/24 at 1900 0851 (Given - Provider: Ashli Pop RN) heparin injection 5,000 Units 5,000 Units, SubCUTAneous, Every 12 hours scheduled (2 times per day), First dose on Kayli 06/28/24 at 2100 0851 (Given - Provider: Ashli Pop RN)1958 (Given - Provider: Holli Shafer RN) 1006 (Given - Provider: Dinesh Clark)2104 (Given - Provider: Holli Shafer RN) 0853 (Given - Provider: Justine Valentine LPN) hydrALAZINE (Apresoline) tablet 50 mg 50 mg, Oral, 3 times daily, First dose on Kayli 06/28/24 at 2100 0851 (Given - Provider: Ashli Pop RN)1322 (Given - Provider: Meg Wiggins RN)1958 (Given - Provider: Holli Shafer RN) 1005 (Given - Provider: Dinesh Clark)1457 (Given - Provider: Dinesh Clark)2104 (Given - Provider: oHlli Shafer RN) 0852 (Given - Provider: Justine Valentine LPN)1400 (Not Given - Provider: Justine Valentine LPN - Reason: Other - Comment: patient being discharged) influenza vaccine tiss-cult subunt (Flucelvax) STANDARD-DOSE injection 0.5 mL 0.5 mL, IntraMUSCular, Prior to discharge, Starting on Tue06/29/24 at 0900, For 1 dose iron sucrose (Venofer) 200 mg in sodium chloride 0.9 % 100 mL IVPB (COMPLETED) 200 mg, IntraVENous, at 300 mL/hr, Administer over 20 Minutes, Once, On Tue07/03/24 at 0900, For 1 dose, Observe for signs and symptoms of hypersensitivity and/or anaphylactic-type reactions per institutional standard during and following administration. 1006 (New Bag - Provider: Dinesh Clark)1026 (Stopped - Provider: Yajaira Arora RN) iron sucrose (Venofer) 200 mg in sodium chloride 0.9 % 100 mL IVPB (COMPLETED) 200 mg, IntraVENous, at 300 mL/hr, Administer over 20 Minutes, Once, On Tue07/04/24 at 0900, For 1 dose, Observe for signs and symptoms of hypersensitivity and/or anaphylactic-type reactions per institutional standard during and following administration. 0913 (New Bag - Provider: Steven Fontenot RN)0933 (Due: Stopped - Provider: Steven Fontenot RN) lamoTRIgine (LaMICtal) tablet 200 mg 200 mg, Oral, Nightly, First dose on Tue06/28/24 at 2100 1956 (Given - Provider: Holli Shafer RN) 2103 (Given - Provider: Holli Shafer RN) levothyroxine (Synthroid, Levoxyl) tablet 175 mcg 175 mcg, Oral, Daily, First dose on Tue06/28/24 at 1900, Tube feeding (TF) interaction, obtain physician order to manage, recommend holding TF for 30 minutes before and after dose. 0851 (Given - Provider: Ashli Pop RN) 100 (Given - Provider: Dinesh Clark) 0851 (Given - Provider: Justine Valentine LPN) metoprolol tartrate (Lopressor) tablet 100 mg 100 mg, Oral, 2 times daily, First dose on Tue06/28/24 at 2100 0851 (Given - Provider: Ashli Pop RN)1956 (Given - Provider: Holli Shafer RN) 100 (Given - Provider: Dinesh Clark)2103 (Given - Provider: Holli Shafer RN) 0852 (Given - Provider: Justine Valentine LPN) pantoprazole (ProtoNix) EC tablet 40 mg 40 mg, Oral, Daily before breakfast, First dose on Tue06/29/24 at 0600, Substituted for omeprazole (Prilosec). Do not crush, chew, or split. 0544 (Given - Provider: Teena Santos RN) 0458 (Given - Provider: Holli Shafer RN) 0518 (Given - Provider: Holli Shafer RN) risperiDONE (RisperDAL) tablet 6 mg 6 mg, Oral, Nightly, First dose on Tue06/28/24 at 2100, Indications: Mixed Bipolar Affective Disorder 1956 (Given - Provider: Holli Shafer RN) 2103 (Given - Provider: Holli Shafer RN) rosuvastatin (Crestor) tablet 10 mg 10 mg, Oral, Daily, First dose on Tue06/28/24 at 1900 0851 (Given - Provider: Ashli Pop RN) 1005 (Given - Provider: Dinesh Clark) 0851 (Given - Provider: Justine Valentine LPN) sennosides (Senokot) tablet 17.2 mg 17.2 mg (2 tablet), Oral, 2 times daily, First dose on Tue07/03/24 at 1300 1300 (Not Given - Provider: Yajaira Arora RN - Reason: Patient/family refused)2100 (Not Given - Provider: Holli Shafer RN - Reason: Other - Comment: patient had 5x bowel movement today) 0852 (Given - Provider: Justine Valentine LPN) tamsulosin (Flomax) 24 hr capsule 0.4 mg 0.4 mg, Oral, Daily, First dose on Tue06/28/24 at 1900, Do not crush, chew, or split. 0851 (Given - Provider: Ashli Pop RN) 1005 (Given - Provider: Dinesh Clark) 0852 (Given - Provider: Justine Valentine LPN) traZODone (Desyrel) tablet 200 mg 200 mg, Oral, Nightly, First dose on Tue06/28/24 at 2100 1956 (Given - Provider: Holli Shafer RN) 2103 (Given - Provider: Holli Shafer RN) PRN Medication Order 07/02/2024 07/03/2024 07/04/2024 acetaminophen (Tylenol) suppository 650 mg(Linked Group 1) 650 mg, Rectal, Every 6 hours PRN, mild pain (1-3), fever, For temp greater than 100.4 F (38 C), Starting on Kayli 06/28/24 at 1858, Administer if oral route cannot be used. Maximum dose of acetaminophen is 4000 mg from all sources in 24 hours. acetaminophen (Tylenol) tablet 500 mg 500 mg, Oral, Every 6 hours PRN, mild pain (1-3), moderate pain (4-6), Starting on 06/30/24 at 0434, Maximum dose of acetaminophen is 4000 mg from all sources in 24 hours. 0416 (Given - Provider: Teena Santos RN)1803 (Given - Provider: Meg Wiggins RN) 0458 (Given - Provider: Holli Shafer RN)2105 (Given - Provider: Holli Shafer RN) clonazePAM (KlonoPIN) tablet 0.5 mg 0.5 mg, Oral, 2 times daily PRN, anxiety, Starting on Kayli 06/28/24 at 1856, Indications: schizoaffectvie disorder 0856 (Given - Provider: Ashli Pop RN)1957 (Given - Provider: Holli Shafer RN) 1056 (Given - Provider: Yajaira Arora RN)2104 (Given - Provider: Holli Shafer RN) 0901 (Given - Provider: Justine Valentine LPN) ondansetron (Zofran) injection 4 mg(Linked Group 2) 4 mg, IntraVENous, Every 6 hours PRN, nausea, vomiting, Starting on Kayli 06/28/24 at 1858, 1st Line. Give IV if patient is unable to take orally. If inadequate response within 60 minutes, proceed to next-line agent or contact provider if no further options ordered. ondansetron ODT (Zofran-ODT) disintegrating tablet 4 mg(Linked Group 2) 4 mg, Oral, Every 8 hours PRN, nausea, vomiting, Starting on Kayli 06/28/24 at 1858, 1st Line. If inadequate response within 60 minutes, proceed to next-line agent or contact provider if no further options ordered. Patient should allow tablet to dissolve on tongue. Do not remove from blister pack until just before administering. polyethylene glycol (PEG) 3350 (Miralax) packet 17 g 17 g, Oral, Daily PRN, constipation, Starting on Kayli 06/28/24 at 1858, 1st line for treatment of constipation - give scheduled if no bowel movement in past 24 hours. Linked Groups Order Group 1: acetaminophen (Tylenol) tablet 650 mg (CANCELED) 650 mg, Oral, Every 6 hours PRN, mild pain (1-3), fever, For temp greater than 100.4 F (38 C), Starting on Kyali 06/28/24 at 1858, Maximum dose of acetaminophen is 4000 mg from all sources in 24 hours. Or acetaminophen (Tylenol) suppository 650 mgJump to med 650 mg, Rectal, Every 6 hours PRN, mild pain (1-3), fever, For temp greater than 100.4 F (38 C), Starting on Kayli 06/28/24 at 1858, Administer if oral route cannot be used. Maximum dose of acetaminophen is 4000 mg from all sources in 24 hours. Group 2: ondansetron ODT (Zofran-ODT) disintegrating tablet 4 mgJump to med 4 mg, Oral, Every 8 hours PRN, nausea, vomiting, Starting on Kayli 06/28/24 at 1858, 1st Line. If inadequate response within 60 minutes, proceed to next-line agent or contact provider if no further options ordered. Patient should allow tablet to dissolve on tongue. Do not remove from blister pack until just before administering. Or ondansetron (Zofran) injection 4 mgJump to med 4 mg, IntraVENous, Every 6 hours PRN, nausea, vomiting, Starting on Kayli 06/28/24 at 1858, 1st Line. Give IV if patient is unable to take orally. If inadequate response within 60 minutes, proceed to next-line agent or contact provider if no further options ordered. Scheduled Medication Order 07/30/2024 07/31/2024 08/01/2024 lidocaine (Xylocaine) 1 % injection 10 mL 10 mL, Infiltration, Once, On Tue08/01/24 at 1610, For 1 dose 1610 (Canceled Entry - Provider: Automatic Discharge Provider - Comment: Automatically canceled at discontinue of medication order) Scheduled Medication Order 08/08/2024 08/09/2024 08/10/2024 acetaminophen (Tylenol) tablet 650 mg 650 mg, Oral, 3 times daily, First dose on 08/04/24 at 1015, Maximum dose of acetaminophen is 4000 mg from all sources in 24 hours. 0828 (Given - Provider: Nusrat Castellon RN)1306 (Given - Provider: Nusrat Castellon RN)2001 (Given - Provider: Radha Chavez RN) 09 (Given - Provider: Genny Pitts RN)141 (Given - Provider: Genny Pitts, RN)2037 (Given - Provider: Afua Morales RN) 0853 (Given - Provider: Jarrell Steiner LPN)1400 (Canceled Entry - Provider: Automatic Discharge Provider - Comment: Automatically canceled at discontinue of medication order) amLODIPine (Norvasc) tablet 5 mg 5 mg, Oral, Daily, First dose on 08/04/24 at 0900 0828 (Given - Provider: Nusrat Castellon RN) 0918 (Given - Provider: Genny Pitts RN) 0854 (Given - Provider: Jarrell Steiner LPN) cefTRIAXone (Rocephin) 1,000 mg in sodium chloride 0.9 % 50 mL IVPB Mini-Bag Plus (COMPLETED) 1,000 mg, IntraVENous, at 100 mL/hr, Administer over 30 Minutes, Every 24 hours, First dose on 08/06/24 at 0845, For 3 doses, Mini-Bag Plus bag, Suspected Indication (Select all that apply): Urinary Tract Infection 0830 (New Bag - Provider: Nusrat Castellon RN)09 (Stopped - Provider: Nusrat Castellon RN) cholecalciferol (Vitamin D-3) tablet 1,000 Units 1,000 Units, Oral, Daily, First dose on 08/05/24 at 0900 0828 (Given - Provider: Nusrat Castellon RN) 0917 (Given - Provider: Genny Pitts RN) 0854 (Given - Provider: Jarrell Steiner LPN) divalproex (Depakote ER) 24 hr tablet 250 mg 250 mg, Oral, 3 times daily with meals, First dose on 08/04/24 at 0800, Do not crush, chew, or split. 0830 (Given - Provider: Nusrat Castellon RN)1306 (Given - Provider: Nusrat Castellon RN)1700 (Canceled Entry - Provider: Automatic Discharge Provider - Comment: Automatically canceled at discontinue of medication order) 0917 (Given - Provider: Genny Pitts RN)141 (Given - Provider: Genny Pitts RN)2039 (Given - Provider: Afua Morales RN) 0855 (Given - Provider: Jarrell Steiner LPN)1200 (Canceled Entry - Provider: Automatic Discharge Provider - Comment: Automatically canceled at discontinue of medication order) DULoxetine (Cymbalta) DR capsule 60 mg 60 mg, Oral, Daily, First dose on Tue08/04/24 at 0900, Do not crush or chew. 0828 (Given - Provider: Nusrat Castellon RN) 0917 (Given - Provider: Genny Pitts RN) 0854 (Given - Provider: Jarrell Steiner LPN) heparin injection 5,000 Units 5,000 Units, SubCUTAneous, Every 12 hours scheduled (2 times per day), First dose on Tue08/03/24 at 2230 0828 (Given - Provider: Nusrat Castellon RN)2002 (Given - Provider: Radha Chavez RN) 0917 (Given - Provider: Genny Pitts RN)2037 (Given - Provider: Afua Morales RN) 0853 (Given - Provider: Jarrell Steiner LPN) hydrALAZINE (Apresoline) tablet 50 mg 50 mg, Oral, 3 times daily, First dose on Tue08/03/24 at 2230 0829 (Given - Provider: Nusrat Castellon RN)1306 (Given - Provider: Nusrat Castellon RN)2002 (Given - Provider: Radha Chavez RN) 0919 (Given - Provider: Genny Pitts, IDALIA)141 (Given - Provider: Genny Pitts, RN)2038 (Given - Provider: Afua Morales, IDALIA) 0854 (Given - Provider: Jarrell Steiner LPN)1400 (Canceled Entry - Provider: Automatic Discharge Provider - Comment: Automatically canceled at discontinue of medication order) lamoTRIgine (LaMICtal) tablet 200 mg 200 mg, Oral, Nightly, First dose on Tue08/03/24 at 2230 2002 (Given - Provider: Radha Chavez RN) 2038 (Given - Provider: Afua Morales RN) levothyroxine (Synthroid, Levoxyl) tablet 125 mcg 125 mcg, Oral, Daily, First dose (after last modification) on 08/06/24 at 0600, Tube feeding (TF) interaction, obtain physician order to manage, recommend holding TF for 30 minutes before and after dose. 410 (Given - Provider: Afua Morales RN) 626 (Given - Provider: Radha Chavez RN) 045 (Given - Provider: Afua Morales RN) metoprolol tartrate (Lopressor) tablet 100 mg 100 mg, Oral, 2 times daily, First dose on Tue08/03/24 at 2230 0829 (Given - Provider: Nusrat Castellon RN)2002 (Given - Provider: Radha Chavez RN) 917 (Given - Provider: Genny Pitts RN)2038 (Given - Provider: Afua Morales RN) 0854 (Given - Provider: Jarrell Steiner LPN) pantoprazole (ProtoNix) EC tablet 40 mg 40 mg, Oral, Daily before breakfast, First dose on 08/04/24 at 0600, Substituted for omeprazole (Prilosec). Do not crush, chew, or split. 410 (Given - Provider: Afua Morales RN) 626 (Given - Provider: Radha Chavez RN) 450 (Given - Provider: Afua Morales RN) risperiDONE (RisperDAL) tablet 6 mg 6 mg, Oral, Nightly, First dose on Tue08/03/24 at 2230, Indications: Mixed Bipolar Affective Disorder 2002 (Given - Provider: Radha Chavez RN) 2038 (Given - Provider: Afua Morales RN) rosuvastatin (Crestor) tablet 10 mg 10 mg, Oral, Daily, First dose on 08/04/24 at 0900 0828 (Given - Provider: Nusrat Castellon RN) 09 (Given - Provider: Genny Pitts RN) 0854 (Given - Provider: Jarrell Steiner LPN) sodium zirconium cyclosilicate (Lokelma) packet 10 g (COMPLETED) 10 g, Oral, Once, On Tue08/10/24 at 0900, For 1 dose, Empty entire contents of packet(s) into 45 mL water. Stir well and administer immediately. If powder remains, rinse glass with water and administer. 1053 (Given - Provider: Jarrell Steiner LPN) sodium zirconium cyclosilicate (Lokelma) packet 5 g (COMPLETED) 5 g, Oral, Once, On Tue08/08/24 at 0900, For 1 dose, Empty entire contents of packet(s) into 45 mL water. Stir well and administer immediately. If powder remains, rinse glass with water and administer. Administer other meds at least 2 hours before or after dose to prevent decreases in their absorption. 1306 (Given - Provider: Nusrat Castellon RN) tamsulosin (Flomax) 24 hr capsule 0.4 mg 0.4 mg, Oral, Daily, First dose on Tue08/04/24 at 0900, Do not crush, chew, or split. 0829 (Given - Provider: Nusrat Castellon RN) 0918 (Given - Provider: Genny Pitts RN) 0854 (Given - Provider: Jarrell Steiner LPN) traZODone (Desyrel) tablet 200 mg 200 mg, Oral, Nightly, First dose on Tue08/03/24 at 2230 2002 (Given - Provider: Radha Chavez RN) 2038 (Given - Provider: Afua Morales, IDALIA) PRN Medication Order 08/08/2024 08/09/2024 08/10/2024 clonazePAM (KlonoPIN) tablet 0.5 mg 0.5 mg, Oral, 2 times daily PRN, anxiety, Starting on Tue08/03/24 at 2225, Indications: schizoaffectvie disorder 0835 (Given - Provider: Nusrat Castellon RN)2001 (Given - Provider: Radha Chavez RN) 2037 (Given - Provider: Afua Morales, IDALIA) 1054 (Given - Provider: Jarrell Steiner LPN) guaiFENesin (Robitussin) 100 MG/5ML liquid 200 mg 200 mg, Oral, Every 4 hours PRN, cough, Starting on Tue08/06/24 at 2058 2002 (Given - Provider: Radha Chavez, IDALIA) 2042 (Given - Provider: Afua Morales, RN) 011 (Given - Provider: Afua Morales, IDALIA) HYDROcodone-acetaminophen ([place]) 5-325 MG per tablet 1 tablet 1 tablet, Oral, Every 6 hours PRN, moderate pain (4-6), severe pain (7-10), Starting on Tue08/04/24 at 1014, Maximum dose of acetaminophen is 4000 mg from all sources in 24 hours. 0155 (Given - Provider: Afua Morales, IDALIA)0828 (Given - Provider: Nusrat Castellon RN)2002 (Given - Provider: Radha Chavez RN) 011 (Given - Provider: Afua Morales RN) naloxone (Narcan) injection 0.4 mg 0.4 mg, IntraVENous, Every 5 min PRN, opioid reversal, respiratory depression, Starting on Tue08/03/24 at 2306, +++ For RR <10, pinpoint pupils, over sedation for opioid reversal - MUST notify automation/controls manager provider immediately after first dose, may give IM or SQ if no IV access +++ ondansetron (Zofran) injection 4 mg(Linked Group 1) 4 mg, IntraVENous, Every 6 hours PRN, nausea, vomiting, Starting on Tue08/03/24 at 2225, 1st Line. Give IV if patient is unable to take orally. If inadequate response within 60 minutes, proceed to next-line agent or contact provider if no further options ordered. ondansetron ODT (Zofran-ODT) disintegrating tablet 4 mg(Linked Group 1) 4 mg, Oral, Every 8 hours PRN, nausea, vomiting, Starting on Tue08/03/24 at 2225, 1st Line. If inadequate response within 60 minutes, proceed to next-line agent or contact provider if no further options ordered. Patient should allow tablet to dissolve on tongue. Do not remove from blister pack until just before administering. polyethylene glycol (PEG) 3350 (Miralax) packet 17 g 17 g, Oral, Daily PRN, constipation, Starting on Tue08/03/24 at 2225, 1st line for treatment of constipation - give scheduled if no bowel movement in past 24 hours., On hold since Tue08/10/2024 at 0853 until manually unheld 0828 (Given - Provider: Nusrat Castellon, RN) 0633 (Given - Provider: Radha Chavez, IDALIA) 0853 (Held by provider - Provider: Diamante Schroeder MD - Reason: Other)1539 (Unheld by provider - Provider: Automatic Discharge Provider) senna-docusate sodium (Senokot-S) 8.6-50 MG tablet 1 tablet 1 tablet, Oral, 2 times daily PRN, constipation, Starting on Tue08/10/24 at 0853 1054 (Given - Provider: Jarrell Steiner LPN) Linked Groups Order Group 1: ondansetron ODT (Zofran-ODT) disintegrating tablet 4 mgJump to med 4 mg, Oral, Every 8 hours PRN, nausea, vomiting, Starting on Tue08/03/24 at 2225, 1st Line. If inadequate response within 60 minutes, proceed to next-line agent or contact provider if no further options ordered. Patient should allow tablet to dissolve on tongue. Do not remove from blister pack until just before administering. Or ondansetron (Zofran) injection 4 mgJump to med 4 mg, IntraVENous, Every 6 hours PRN, nausea, vomiting, Starting on Tue08/03/24 at 2225, 1st Line. Give IV if patient is unable to take orally. If inadequate response within 60 minutes, proceed to next-line agent or contact provider if no further options ordered. Scheduled Medication Order 11/01/2024 11/02/2024 11/03/2024 sodium chloride 0.9 % bolus 1,000 mL (COMPLETED) 1,000 mL, IntraVENous, at 1,000 mL/hr, Administer over 1 Hours, Once, On 11/03/24 at 0410, For 1 dose 0423 (New Bag - Prov ider: Vy Yan, IDALIA)0523 (Stopped - Provider: Valentino Gan RN) Scheduled Medication Order 11/13/2024 11/14/2024 11/15/2024 furosemide (Lasix) injection 40 mg (COMPLETED) 40 mg, IntraVENous, Once, On Kayli 11/15/24 at 0635, For 1 dose 0651 (Given - Provid er: Lorraine L Castellon, RN) sodium chloride 0.9 % bolus 500 mL (COMPLETED) 500 mL, IntraVENous, at 500 mL/hr, Administer over 1 Hours, Once, On Kayli 11/15/24 at 0855, For 1 dose 0855 (New Bag - Prov ider: Tennille Ramirez RN)1058 (Stopped - Provider: Tennille Ramirez RN) Scheduled Medication Order 12/26/2024 12/27/2024 12/28/2024 acetaminophen (Tylenol) tablet 1,000 mg (COMPLETED) 1,000 mg, Oral, Once, On Tue12/28/24 at 0555, For 1 dose, Maximum dose of acetaminophen is 4000 mg from all sources in 24 hours. 05 (Given - Provid er: Maryanne Up RN) Scheduled Medication Order 12/27/2024 12/28/2024 12/29/2024 acetaminophen (Tylenol) tablet 1,000 mg (COMPLETED) 1,000 mg, Oral, Once, On Tue12/28/24 at 2050, For 1 dose, Maximum dose of acetaminophen is 4000 mg from all sources in 24 hours. 2141 (Given - Provider: Vy Yan RN) clonazePAM (KlonoPIN) tablet 0.5 mg (COMPLETED) 0.5 mg, Oral, Once, On 12/29/24 at 0250, For 1 dose 0545 (Given - Provid er: Vy Yan RN - Comment: Patient rested then when awoken patient became anxious) Scheduled Medication Order 12/27/2024 12/28/2024 12/29/2024 HYDROcodone-acetaminophen ([place]) 5-325 MG per tablet 1 tablet (COMPLETED) 1 tablet, Oral, Once, On 12/29/24 at 2100, For 1 dose, Maximum dose of acetaminophen is 4000 mg from all sources in 24 hours. 2102 (Given - Provid er: Valentino Gan RN) Scheduled Medication Order 01/13/2025 01/14/2025 01/15/2025 acetaminophen (Tylenol) tablet 1,000 mg 1,000 mg, Oral, Every 8 hours, First dose on Tue01/01/25 at 0900, Maximum dose of acetaminophen is 4000 mg from all sources in 24 hours. 0120 (Not Given - Provider: Lea Clarke RN - Reason: Other)0915 (Given - Provider: Jorge Lawrence RN)1611 (Given - Provider: Jorge Lawrence RN)2351 (Given - Provider: Kelvin Kincaid RN) 0830 (Given - Provider: Jorge Lawrence RN)1634 (Given - Provider: Jorge Lawrence RN) 0211 (Not Given - Provider: Luz Elena Mckinnon LPN - Reason: Patient/family refused)0900 (Given - Provider: Jorge Lawrence RN) buprenorphine (Butrans) 20 MCG/HR 1 patch 1 patch, TransDERmal, Administer over 168 Hours, Weekly, First dose on Tue12/31/24 at 1600, Do not cut patch. Rotate Butrans application site weekly, applying to upper outer arm, upper chest, upper back, or side of chest. Do not reapply to same site within 3 weeks. May use first aid tape or semipermeable adhesive dressings to re-adhere if patch begins to pull away from skin. When removing, fold adhesive side of patch to itself before disposing, or per policy. 0828 (Medication Removed - Provider: Jorge Lawrence RN)0829 (Medication Applied - Provider: Jorge Lawrence RN) 1458 (Due: Medication Removed - Provider: Automatic Discharge Provider - Comment: Time automatically adjusted from order being discontinued) clonazePAM (KlonoPIN) tablet 0.5 mg (COMPLETED) 0.5 mg, Oral, Once, On Tue01/15/25 at 0900, For 1 dose 0859 (Given - Provider: Jorge Lawrence RN) divalproex (Depakote ER) 24 hr tablet 250 mg 250 mg, Oral, 3 times daily with meals, First dose on Tue12/30/24 at 1820, Do not crush, chew, or split. 0916 (Given - Provider: Jorge Lawrence RN)1245 (Given - Provider: Jorge Lawrence RN)1611 (Given - Provider: Jorge Lawrence RN) 0830 (Given - Provider: Jorge Lawrence RN)1152 (Given - Provider: Jorge Lawrence RN)1814 (Given - Provider: Jorge Lawrence RN) 0900 (Given - Provider: Jorge Lawrence RN)1204 (Given - Provider: Jorge Lawrence RN) DULoxetine (Cymbalta) DR capsule 60 mg 60 mg, Oral, Daily, First dose on Tue12/31/24 at 1315, Do not crush or chew. 914 (Given - Provider: Jorge Lawrence RN) 08 (Given - Provider: Jorge Lawrence RN) 899 (Given - Provider: Jorge Lawrence RN) ergocalciferol (Vitamin D2) capsule 1,250 mcg 1,250 mcg, Oral, Weekly, First dose on Tue01/01/25 at 0900 0900 (Given - Provider: Jorge Lawrence RN) ferrous sulfate tablet 325 mg 325 mg, Oral, Daily with breakfast, First dose on Tue01/01/25 at 0900 0915 (Given - Provider: Jorge Lawrence RN) 828 (Given - Provider: Jorge Lawrence RN) 899 (Given - Provider: Jorge Lawrence RN) heparin injection 5,000 Units 5,000 Units, SubCUTAneous, Every 12 hours scheduled (2 times per day), First dose on Tue12/31/24 at 2100 914 (Not Given - Provider: Jorge Lawrence RN - Reason: Patient/family refused)2048 (Given - Provider: Kelvin Kincaid RN) 828 (Given - Provider: Jorge Lawrence RN)2044 (Not Given - Provider: Luz Elena Mckinnon LPN - Reason: Patient/family refused) 899 (Given - Provider: Jorge Lawrence RN) lamoTRIgine (LaMICtal) tablet 150 mg 150 mg, Oral, Nightly, First dose on Tue12/30/24 at 2099 2046 (Given - Provider: Kelvin Kincaid RN) 2045 (Given - Provider: Luz Elena Mckinnon LPN) levothyroxine (Synthroid, Levoxyl) tablet 137.5 mcg 137.5 mcg, Oral, Daily before breakfast, First dose (after last modification) on Tue01/01/25 at 0600, Tube feeding (TF) interaction, obtain physician order to manage, recommend holding TF for 30 minutes before and after dose. 0510 (Given - Provider: Lea Clarke RN) 0554 (Given - Provider: Kelvin Kincaid RN) 0458 (Given - Provider: Luz Elena Mckinnon LPN) miconazole (Micotin) 2 % powder Topical, 2 times daily, First dose on Tue12/30/24 at 2100 0916 (Given - Provider: Jorge Lawrence RN)2046 (Given - Provider: Kelvin Kincaid RN) 08 (Given - Provider: Jorge Lawrence RN)2043 (Given - Provider: Luz Elena Mckinnon LPN) 09 (Given - Provider: Jorge Lawrence RN) pantoprazole (ProtoNix) EC tablet 40 mg 40 mg, Oral, Daily before breakfast, First dose on Tue12/31/24 at 0600, Substituted for omeprazole (Prilosec). Do not crush, chew, or split. 0510 (Given - Provider: Lea Clarke RN) 0555 (Given - Provider: Kelvin Kincaid RN) 0500 (Given - Provider: Luz Elena Mckinnon LPN) polyethylene glycol (PEG) 3350 (Miralax) packet 17 g 17 g, Oral, Daily, First dose (after last modification) on Kayli 01/10/25 at 1630, 1st line for treatment of constipation - give scheduled if no bowel movement in past 24 hours. 0914 (Given - Provider: Jorge Lawrence RN) 0829 (Given - Provider: Jorge Lawrence RN) 09 (Given - Provider: Jorge Lawrence RN) risperiDONE (RisperDAL) tablet 3 mg 3 mg, Oral, Nightly, First dose on Tue12/31/24 at 2100, Indications: Mixed Bipolar Affective Disorder 2047 (Given - Provider: Kelvin Kincaid RN) 2044 (Given - Provider: Luz Elena Mckinnon LPN) rosuvastatin (Crestor) tablet 10 mg 10 mg, Oral, Daily, First dose on Tue12/30/24 at 1820 0915 (Given - Provider: Jorge Lawrence RN) 0829 (Given - Provider: Jorge Lawrence RN) 0900 (Given - Provider: Jorge Lawrence RN) senna-docusate sodium (Senokot-S) 8.6-50 MG tablet 2 tablet 2 tablet, Oral, 2 times daily, First dose (after last modification) on Tue01/11/25 at 0600 0512 (Given - Provider: Lea Clarke RN)1611 (Given - Provider: Jorge Lawrence RN) 0555 (Given - Provider: Kelvin Kincaid RN)1523 (Given - Provider: Jorge Lawrence RN) 0457 (Given - Provider: Luz Elena Mckinnon LPN)1500 (Canceled Entry - Provider: Automatic Discharge Provider - Comment: Automatically canceled at discontinue of medication order) sodium chloride 0.9% (NS) flush 5-40 mL 5-40 mL, IntraVENous, Every 12 hours, First dose on Tue12/30/24 at 1820, For Line Patency: Peripheral IV = 5 mL; Midline or Central Line = 10 mL/lumen. If following IV push medication, administer flush at same rate as the IV push. Flush volume is determined by type of infusion therapy being given. For non-viscous solutions use: Peripheral IV = 5 mL Midline or Central Line = 10 mL/lumen For viscous solutions (i.e. blood components, parenteral nutrition, contrast media, or after obtaining blood sample) use: Peripheral IV = 10 mL Midline or Central Line = 20 mL/lumen 0519 (Not Given - Provider: Lea Clarke RN - Reason: Loss of IV access)1731 (Not Given - Provider: Jorge Lawrence RN - Reason: Loss of IV access) 0610 (Not Given - Provider: Kelvin Kincaid RN - Reason: Loss of IV access)1726 (Not Given - Provider: Jorge Lawrence RN - Reason: Loss of IV access) 0511 (Not Given - Provider: Luz Elena Mckinnon LPN - Reason: Loss of IV access) stomahesive in petrolatum (ET Mix) Topical, Every 8 hours, First dose on Tue01/02/25 at 1400, Apply to sacrum and left post thigh 0513 (Given - Provider: Lea Clarke RN)1611 (Not Given - Provider: Jorge Lawrence RN - Reason: Medication not available)205 (Not Given - Provider: Kelvin Kincaid RN - Reason: Patient/family refused) 0608 (Given - Provider: Kelvin Kincaid, RN)1524 (Given - Provider: Jorge Lawrence RN)2045 (Given - Provider: Luz Elena Mckinnon LPN) 0500 (Given - Provider: Luz Elena Mckinnon LPN)1400 (Canceled Entry - Provider: Automatic Discharge Provider - Comment: Automatically canceled at discontinue of medication order) traZODone (Desyrel) tablet 200 mg 200 mg, Oral, Nightly, First dose on Tue12/31/24 at 2100 2048 (Given - Provider: Kelvin Kincaid RN) 2044 (Given - Provider: Luz Elena Mckinnon LPN) PRN Medication Order 01/13/2025 01/14/2025 01/15/2025 bisacodyl (Dulcolax) suppository 10 mg 10 mg, Rectal, Daily PRN, constipation, Starting on Tue01/07/25 at 1515 clonazePAM (KlonoPIN) tablet 0.5 mg 0.5 mg, Oral, 2 times daily PRN, anxiety, Starting on Tue12/30/24 at 1819, Indications: schizoaffectvie disorder 1053 (Given - Provider: Jorge Lawrence RN)1731 (Given - Provider: Jorge Lawrence RN) 0831 (Given - Provider: Jorge Lawrence RN)1634 (Given - Provider: Jorge Lwarence RN) 0457 (Given - Provider: Luz Elena Mckinnon LPN) melatonin tablet 3 mg 3 mg, Oral, Nightly PRN, sleep, Starting on Tue01/01/25 at 2122 2047 (Given - Provider: Kelvin Kincaid RN) 2044 (Given - Provider: Luz Elena Mckinnon LPN) naloxone (Narcan) injection 0.4 mg 0.4 mg, IntraVENous, Every 5 min PRN, opioid reversal, respiratory depression, Starting on Tue12/31/24 at 1310, +++ For RR <10, pinpoint pupils, over sedation for opioid reversal - MUST notify automation/controls manager provider immediately after first dose, may give IM or SQ if no IV access +++ ondansetron (Zofran) injection 4 mg(Linked Group 1) 4 mg, IntraVENous, Every 6 hours PRN, nausea, vomiting, Starting on 12/30/24 at 1819, 1st Line. Give IV if patient is unable to take orally. If inadequate response within 60 minutes, proceed to next-line agent or contact provider if no further options ordered. ondansetron ODT (Zofran-ODT) disintegrating tablet 4 mg(Linked Group 1) 4 mg, Oral, Every 8 hours PRN, nausea, vomiting, Starting on 12/30/24 at 1819, 1st Line. If inadequate response within 60 minutes, proceed to next-line agent or contact provider if no further options ordered. Patient should allow tablet to dissolve on tongue. Do not remove from blister pack until just before administering. oxyCODONE (Roxicodone) immediate release tablet 2.5 mg(Linked Group 2) 2.5 mg, Oral, Every 4 hours PRN, moderate pain (4-6), Starting on Tue01/08/25 at 1101 0510 (See Alternative - Provider: Lea Clarke RN)0916 (See Alternative - Provider: Jorge Lawrence RN)1331 (See Alternative - Provider: Jorge Lawrence RN)1820 (See Alternative - Provider: Jorge Lawrence RN)2351 (See Alternative - Provider: Kelvin Kincaid RN) 0554 (See Alternative - Provider: Kelvin Kincaid RN)1030 (See Alternative - Provider: Jorge Lawrence RN)1523 (See Alternative - Provider: Jorge Lawrence RN)2045 (See Alternative - Provider: Luz Elena Mckinnon LPN) 0457 (See Alternative - Provider: Luz Elena Mckinnon LPN)1037 (See Alternative - Provider: Jorge Lawrence RN)1446 (See Alternative - Provider: Daily Nolan RN) oxyCODONE (Roxicodone) immediate release tablet 5 mg(Linked Group 2) 5 mg, Oral, Every 4 hours PRN, severe pain (7-10), Starting on Tue01/08/25 at 1101 0510 (Given - Provider: Lea Clarke RN)0916 (Given - Provider: Jorge Lawrence RN)1331 (Given - Provider: Jorge Lawrence RN)1820 (Given - Provider: Jorge Lawrence RN)2351 (Given - Provider: Kelvin Kincaid RN) 0554 (Given - Provider: Kelvin Kincaid RN)1030 (Given - Provider: Jorge Lawrence RN)1523 (Given - Provider: Jorge Lawrence RN)2045 (Given - Provider: Luz Elena Mckinnon LPN) 0457 (Given - Provider: Luz Elena Mckinnon LPN)1037 (Given - Provider: Jorge Lawrence RN)1446 (Given - Provider: Daily Nolan RN) sodium chloride 0.9 % infusion 5-250 mL/hr, IntraVENous, PRN, if patient receiving piggyback infusions and maintenance fluids are not ordered OR KVO fluids to protect IV site / prevent frequent line interruptions / long duration, Starting on Tue12/30/24 at 1819, For piggyback infusion, administer at same rate as piggyback for a total of 25 mL. Enter 25 mL into dose field and piggyback rate into rate field of order. If piggyback is infusing at a rate less than 100 mL/hr, enter 25 mL into dose field and 100 mL/hr into rate field of order. For KVO fluids, enter rate of 20 mL/hr or less into rate field of order. sodium chloride 0.9% (NS) flush 5-40 mL 5-40 mL, IntraVENous, PRN, line care, After every IV line use, Starting on Tue12/30/24 at 181, For Line Patency: Peripheral IV = 5 mL; Midline or Central Line = 10 mL/lumen. If following IV push medication, administer flush at same rate as the IV push. Flush volume is determined by type of infusion therapy being given. For non-viscous solutions use: Peripheral IV = 5 mL Midline or Central Line = 10 mL/lumen For viscous solutions (i.e. blood components, parenteral nutrition, contrast media, or after obtaining blood sample) use: Peripheral IV = 10 mL Midline or Central Line = 20 mL/lumen stomahesive in petrolatum (ET Mix) Topical, PRN, dry skin, Starting on Tue01/02/25 at 1222 Linked Groups Order Group 1: ondansetron ODT (Zofran-ODT) disintegrating tablet 4 mgJump to med 4 mg, Oral, Every 8 hours PRN, nausea, vomiting, Starting on Tue12/30/24 at 181, 1st Line. If inadequate response within 60 minutes, proceed to next-line agent or contact provider if no further options ordered. Patient should allow tablet to dissolve on tongue. Do not remove from blister pack until just before administering. Or ondansetron (Zofran) injection 4 mgJump to med 4 mg, IntraVENous, Every 6 hours PRN, nausea, vomiting, Starting on 12/30/24 at 1819, 1st Line. Give IV if patient is unable to take orally. If inadequate response within 60 minutes, proceed to next-line agent or contact provider if no further options ordered. Group 2: oxyCODONE (Roxicodone) immediate release tablet 2.5 mgJump to med 2.5 mg, Oral, Every 4 hours PRN, moderate pain (4-6), Starting on Tue01/08/25 at 1101 Or oxyCODONE (Roxicodone) immediate release tablet 5 mgJump to med 5 mg, Oral, Every 4 hours PRN, severe pain (7-10), Starting on Tue01/08/25 at 1101 Scheduled Medication Order 03/13/2025 03/14/2025 03/15/2025 bisacodyl (Dulcolax) suppository 10 mg 10 mg, Rectal, Daily, First dose on Tue03/10/25 at 2130 0810 (Not Given - Provider: Mason Morocho RN - Reason: Patient/family refused - Comment: Pt agreed to med, then refused when time to adminster) 0830 (Not Given - Provider: Pastora Garner RN - Reason: Patient/family refused) 0835 (Not Given - Provider: Pastora Garner RN - Reason: Patient/family refused) buprenorphine (Butrans) 20 MCG/HR 1 patch 1 patch, TransDERmal, Administer over 168 Hours, Weekly, First dose on Tue03/12/25 at 0900, Do not cut patch. Rotate Butrans application site weekly, applying to upper outer arm, upper chest, upper back, or side of chest. Do not reapply to same site within 3 weeks. May use first aid tape or semipermeable adhesive dressings to re-adhere if patch begins to pull away from skin. When removing, fold adhesive side of patch to itself before disposing, or per policy. 1410 (Due: Medicatio n Removed - Provider: Automatic Discharge Provider - Comment: Time automatically adjusted from order being discontinued) divalproex (Depakote ER) 24 hr tablet 250 mg 250 mg, Oral, 3 times daily with meals, First dose on Tue03/07/25 at 0840, Do not crush, chew, or split. 0824 (Given - Provider: Christa Tello, RN)1243 (Given - Provider: Christa Tello, RN)1813 (Given - Provider: Christa Tello RN) 0829 (Given - Provider: Pastora Garner RN)1210 (Given - Provider: Pastora Garner RN)1740 (Given - Provider: Pastora Garner, IDALIA) 0832 (Given - Provider: Pastora Garner RN)1154 (Given - Provider: Pastora Garner RN) DULoxetine (Cymbalta) DR capsule 60 mg 60 mg, Oral, Daily, First dose on Tue03/07/25 at 0900, Do not crush or chew. 0811 (Given - Provider: Mason Morocho RN) 0830 (Given - Provider: Pastora Garner RN) 0832 (Given - Provider: Pastora Garner RN) lamoTRIgine (LaMICtal) tablet 150 mg 150 mg, Oral, Nightly, First dose on Tue03/07/25 at 2100 2144 (Given - Provider: Kitty Noguera RN) 2025 (Given - Provider: Kitty Noguera RN) levothyroxine (Synthroid, Levoxyl) tablet 125 mcg 125 mcg, Oral, Daily, First dose on Tue03/07/25 at 0840, Tube feeding (TF) interaction, obtain physician order to manage, recommend holding TF for 30 minutes before and after dose. 0811 (Given - Provider: Mason Morocho RN) 0829 (Given - Provider: Pastora Garner RN) 0832 (Given - Provider: Pastora Garner RN) metoprolol tartrate (Lopressor) tablet 75 mg 75 mg, Oral, 2 times daily, First dose (after last modification) on Tue03/13/25 at 2100 2200 (Not Given - Provider: Kitty Noguera RN - Reason: Other - Comment: pts HR is 53. provider notified, med held) 08 (Not Given - Provider: Pastora Garner RN - Reason: Other - Comment: Hold per MD)2026 (Given - Provider: Kitty Noguera RN) 0832 (Not Given - Provider: Pastora Garner RN - Reason: Other - Comment: HR 50) risperiDONE (RisperDAL) tablet 3 mg 3 mg, Oral, Nightly, First dose on Tue03/07/25 at 2100, Indications: Mixed Bipolar Affective Disorder 2144 (Given - Provider: Kitty Noguera, IDALIA) 2023 (Given - Provider: Kitty Noguera RN) rosuvastatin (Crestor) tablet 10 mg 10 mg, Oral, Daily, First dose on Tue03/07/25 at 0900 0811 (Given - Provider: Mason Morocho RN) 0830 (Given - Provider: Pastora Garner RN) 0832 (Given - Provider: Pastora Garner RN) sodium chloride 0.9% (NS) flush 5-40 mL 5-40 mL, IntraVENous, Every 12 hours, First dose on Tue03/07/25 at 0840, For Line Patency: Peripheral IV = 5 mL; Midline or Central Line = 10 mL/lumen. If following IV push medication, administer flush at same rate as the IV push. Flush volume is determined by type of infusion therapy being given. For non-viscous solutions use: Peripheral IV = 5 mL Midline or Central Line = 10 mL/lumen For viscous solutions (i.e. blood components, parenteral nutrition, contrast media, or after obtaining blood sample) use: Peripheral IV = 10 mL Midline or Central Line = 20 mL/lumen 0812 (Given - Provider: Mason Morocho RN)2159 (Given - Provider: Kitty Noguera RN) 0833 (Given - Provider: Pastora Garner RN)2027 (Given - Provider: Kitty Noguera RN) 075 (Given - Provider: Pastora Garner RN) traZODone (Desyrel) tablet 100 mg 100 mg, Oral, Nightly, First dose on Tue03/08/25 at 2100 2145 (Given - Provider: Kitty Noguera RN) 2024 (Given - Provider: Kitty Noguera RN) PRN Medication Order 03/13/2025 03/14/2025 03/15/2025 acetaminophen (Tylenol) suppository 650 mg(Linked Group 1) 650 mg, Rectal, Every 6 hours PRN, fever, For temp greater than 100.4 F (38 C), Starting on Tue03/07/25 at 0836, Administer if oral route cannot be used. Maximum dose of acetaminophen is 4000 mg from all sources in 24 hours. acetaminophen (Tylenol) tablet 650 mg(Linked Group 1) 650 mg, Oral, Every 6 hours PRN, mild pain (1-3), fever, For temp greater than 100.4 F (38 C), Starting on Tue03/07/25 at 0836, Maximum dose of acetaminophen is 4000 mg from all sources in 24 hours. guaiFENesin (Robitussin) 100 MG/5ML liquid 200 mg 200 mg, Oral, Every 4 hours PRN, cough, Starting on Tue03/14/25 at 1538 hydrOXYzine pamoate (Vistaril) capsule 25 mg 25 mg, Oral, Every 6 hours PRN, anxiety, Starting on Tue03/07/25 at 0843 2216 (Given - Provider: Kitty Noguera, IDALIA) 2023 (Given - Provider: Kitty Noguera, IDALIA) melatonin tablet 6 mg 6 mg, Oral, Nightly PRN, sleep, Starting on Tue03/07/25 at 2206 2215 (Given - Provider: Kitty Noguera, IDALIA) 2024 (Given - Provider: Kitty Noguera, IDALIA) naloxone (Narcan) injection 0.4 mg 0.4 mg, IntraVENous, Every 5 min PRN, opioid reversal, respiratory depression, Starting on Tue03/11/25 at 1804, +++ For RR <10, pinpoint pupils, over sedation for opioid reversal - MUST notify automation/controls manager provider immediately after first dose, may give IM or SQ if no IV access +++ ondansetron (Zofran) injection 4 mg(Linked Group 2) 4 mg, IntraVENous, Every 6 hours PRN, nausea, vomiting, Starting on Tue03/07/25 at 0836, 1st Line. Give IV if patient is unable to take orally. If inadequate response within 60 minutes, proceed to next-line agent or contact provider if no further options ordered. ondansetron ODT (Zofran-ODT) disintegrating tablet 4 mg(Linked Group 2) 4 mg, Oral, Every 8 hours PRN, nausea, vomiting, Starting on Tue03/07/25 at 0836, 1st Line. If inadequate response within 60 minutes, proceed to next-line agent or contact provider if no further options ordered. Patient should allow tablet to dissolve on tongue. Do not remove from blister pack until just before administering. polyethylene glycol (PEG) 3350 (Miralax) packet 17 g 17 g, Oral, Daily PRN, constipation, Starting on Tue03/07/25 at 0836, 1st line for treatment of constipation - give scheduled if no bowel movement in past 24 hours. senna-docusate sodium (Senokot-S) 8.6-50 MG tablet 2 tablet 2 tablet, Oral, Daily PRN, constipation, Starting on Tue03/10/25 at 1240, Second line 2257 (Given - Provider: Kitty Noguera RN) sodium chloride 0.9 % infusion 5-250 mL/hr, IntraVENous, PRN, if patient receiving piggyback infusions and maintenance fluids are not ordered OR KVO fluids to protect IV site / prevent frequent line interruptions / long duration, Starting on Tue03/07/25 at 0836, For piggyback infusion, administer at same rate as piggyback for a total of 25 mL. Enter 25 mL into dose field and piggyback rate into rate field of order. If piggyback is infusing at a rate less than 100 mL/hr, enter 25 mL into dose field and 100 mL/hr into rate field of order. For KVO fluids, enter rate of 20 mL/hr or less into rate field of order. sodium chloride 0.9% (NS) flush 5-40 mL 5-40 mL, IntraVENous, PRN, line care, After every IV line use, Starting on Tue03/07/25 at 0836, For Line Patency: Peripheral IV = 5 mL; Midline or Central Line = 10 mL/lumen. If following IV push medication, administer flush at same rate as the IV push. Flush volume is determined by type of infusion therapy being given. For non-viscous solutions use: Peripheral IV = 5 mL Midline or Central Line = 10 mL/lumen For viscous solutions (i.e. blood components, parenteral nutrition, contrast media, or after obtaining blood sample) use: Peripheral IV = 10 mL Midline or Central Line = 20 mL/lumen stomahesive in petrolatum (ET Mix) Topical, PRN, dry skin, Starting on Tue03/12/25 at 1117, Nursing staff to perform dressing change: Right Buttock: Unstageable pressure injury (resolved) - Apply ET mix. Leave GRAIN HANDLER. Apply PRN Left Posterior thigh: Scar Tissue - Apply ET mix. Leave GRAIN HANDLER. Apply PRN Linked Groups Order Group 1: acetaminophen (Tylenol) tablet 650 mgJump to med 650 mg, Oral, Every 6 hours PRN, mild pain (1-3), fever, For temp greater than 100.4 F (38 C), Starting on Kayli 03/07/25 at 0836, Maximum dose of acetaminophen is 4000 mg from all sources in 24 hours. Or acetaminophen (Tylenol) suppository 650 mgJump to med 650 mg, Rectal, Every 6 hours PRN, fever, For temp greater than 100.4 F (38 C), Starting on Kayli 03/07/25 at 0836, Administer if oral route cannot be used. Maximum dose of acetaminophen is 4000 mg from all sources in 24 hours. Group 2: ondansetron ODT (Zofran-ODT) disintegrating tablet 4 mgJump to med 4 mg, Oral, Every 8 hours PRN, nausea, vomiting, Starting on Kayli 03/07/25 at 0836, 1st Line. If inadequate response within 60 minutes, proceed to next-line agent or contact provider if no further options ordered. Patient should allow tablet to dissolve on tongue. Do not remove from blister pack until just before administering. Or ondansetron (Zofran) injection 4 mgJump to med 4 mg, IntraVENous, Every 6 hours PRN, nausea, vomiting, Starting on Kayli 03/07/25 at 0836, 1st Line. Give IV if patient is unable to take orally. If inadequate response within 60 minutes, proceed to next-line agent or contact provider if no further options ordered. Goals (unrecognized section and content) Goals may be documented in a n alternate section FOR RECORDS PERTAINING TO PATIENTS WHO ARE [...] BE BASED ON THE PRIMARY CLINICAL RECORDS. [employer] [facility]. provides no warranty or guarantee of the accuracy or completeness of information in this document.
[2025-03-20 09:30] LABS: Hematocrit 29.4 % (37-47); Hemoglobin 9.7 g/dL (12.0-15.0); Mean Corp Hgb Conc 33.0 g/dL (32-36); Mean Corpuscular Volume 96.4 fL (81-99); Mean Platelet Vol. 10.3 fl (6.2-12.0); Platelet Count 189 K/mm3 (150-450); RBC Distribution Width CV 14.3 % (11.6-14.6); RBC Distribution Width SD 50.4 fl (35.1-43.9); Red Blood Count 3.05 M/mm3 (4.2-5.4); White Blood Count 8.9 K/mm3 (4.4-11.0)
[2025-03-20 09:57] LABS: Anion Gap 13 (5-15); BUN 28 mg/dL (4-19); BUN/Creat Ratio 10.7 RATIO (10-20); Calcium,Total 9.0 mg/dL (7.6-11.0); Carbon Dioxide 19.9 mmol/L (21.0-32.0); Chloride 95 mmol/L (98-108); Cholesterol 113 mg/dL (<=200); Glucose 90 mg/dL (70-99); Low Density Lipoprotein Calc. 56 mg/dL; Potassium 3.8 mmol/L (3.3-5.1); Triglycerides 83 mg/dL; Very Low Density Lipoprotein 17 mg/dL (5-40); Vitamin D,25 Hydroxy 84.4 ng/mL (30-100); cholesterol:hdl ratio screen 2.80
== END ==
LOC: OLS.ACW100 05:00
PROVIDERS: Visit Provider Family Medicine
DX: E87.1 Hypo-osmolality and hyponatremia (principal); E87.70 Fluid overload, unspecified; R53.1 Weakness; R27.9 Unspecified lack of coordination; R29.6 Repeated falls; S62.92XD Unspecified fracture of left hand, subsequent encounter for fracture with routine healing
CPT/HCPCS: 36415; 80048; 80061; 82306; 84443; 85027

== ENCOUNTER → 2025-06-19 | Outpatient (REF) | payer MEDICARE, MEDICAID, SELFPAY ==
--- OUTSIDE RECORDS SUMMARY | 2025-06-19 04:23 | XMS RPT_ITS | CCD ---
Author Organization [facility] CliniSypr Care Team Providers Care Manager Fire Name Role Phone LISHNEVSKI, EDITH Referring Unavailable [...] Provider Stan BLANCHARD, Edith Primary Care Provider Lishnevski, Edith Primary Care Provider King SANTO, Saurabh Rodriguez Unavailable Ewelina Pruett Unavailable Nick Green MD Unavailable Dax BLANCHARD, Dario Robbins Unavailable [phone] Marquis BLANCHARD, Shania Warren Unavailable Stan BLANCHARD, Edith Primary Care Provider Lishnevski, Edith Attending Unavailable PROVIDER, UNKNOWN Referring [...] Edith Attending Unavailable PROVIDER, UNKNOWN Referring Unavailable Stan BLANCHARD, Edith Primary Care Provider Stan BLANCHARD, Edith Primary Care Provider Ewelina Pruett Unavailable Nick Green MD Unavailable Dario Verduzco MD Unavailable Shania Cho MD Unavailable Nick Green MD Unavailable Stan BLANCHARD, Edith Primary Care Provider Stan BLANCHARD, Edith Primary Care Provider [phone] Stan BLANCHARD, Edith Primary Care Provider Nick Green MD Unavailable Nick Green MD Unavailable Familia Jeronimo MD Unavailable Ap RODRIGUEZ, Katarina Unavailable UnavailMary Boykin Attending Provider UnavailMary Boykin Referring Provider Unavailabl e LISHNEVSKI, EDITH Attending Unavailable LISHNEVSKI, EDITH Primary Care Unavailable LISHNEVSKI, EDITH Primary Care Unavailable FAMILIA JERONIMO Attending Unavailable CARLOTA PHILLIPS Referring Unavailable LISHNEVSKI, EDITH Primary Care Unavailable JORGE ROTH Attending Unavailable LISHNEVSKI, EDITH Primary Care Unavailable LISHNEVSKI, EDITH Primary Care Unavailable JESS PATTON Attending Unavailable LISHNEVSKI, EDITH Primary Care Unavailable MARIANN BYRNES Admitting Unavailable DIAMANTE SCHROEDER Attending Unavailable LISHNEVSKI, EDITH Primary Care Unavailable FROY MORALES Consulting UnavailSARAH Martin Attending Unavailable ESTEPHANIA TERAN Admitting Unavailable LISHNEVSKI, EDITH Primary Care Unavailable FRAN BOWERS Attending Unavailable LISHNEVSKI, EDITH Primary Care Unavailable PAT PRASAD Attending Unavailable BILL HERBERT Admitting Unavailable BILL HERBERT Attending Unavailable LISHNEVSKI, EDITH Primary Care Unavailable MARY GAMBOA Consulting Unavailable ASHLEY HAYES Attending Unavailable LISHNEVSKI, EDITH Primary Care Unavailable CLARA WYATT Admitting Unavailable LISHNEVSKI, EDITH Primary Care Unavailable ARSLAN KIRKLAND Attending Unavailable ASHLEY HAYES Attending Unavailable LISHNEVSKI, EDITH Primary Care Unavailable JUDE CHASE Admitting Unavailable LISHNEVSKI, EDITH Primary Care Unavailable SARAH DURAN Referring Unavailable LISHNEVSKI, EDITH Primary Care Unavailable POOJA JESS Referring Unavailable LISHNEVSKI, EDITH Primary Care Unavailable POOJA JESS Referring Unavailable LISHNEVSKI, EDITH Primary Care Unavailable ARSLAN KIRKLAND Attending Unavailable LISHNEVSKI, EDITH Primary Care Unavailable POOJA JESS Attending Unavailable JAVAD LEES Attending Unavailable LISHNEVSKI, EDITH Primary Care Unavailable Madan Wagner MD Unavailable [phone] Mary Morocho Attending Unavailable Mary Morocho Attending Unavailable Mary Morocho Attending Unavailable Mary Morocho Referring Unavailable Mary Morocho Attending Unavailable Carlota REDDY, Mary Attending Unavailable Mary Morocho Attending Unavailable Mary Morocho Referring Unavailable Mary Morocho Attending Unavailable Mary Morocho Referring Unavailable Mary Morocho Attending Unavailable Mary Morocho Attending Unavailable Allergies Allergy Classification Reported Allergen(s) Allergy Type Date of Onset Reaction(s) Facility Anticholinergics (2 sources) Benztropine Drug Allergy 03-20-20 [facility] diphenhydrAMINE (2 sources) diphenhydrAMINE Drug Allergy 03-20-20 [facility] (20 sources) Antihistamines, Chlorpheniramine-Ty pe Propensity to adverse reactions to drug 03-20-20 15 [place] (20 sources) Other Propensity to adverse reactions 03-20-20 15 Other (See Comments) [place] (20 sources) Benztropine Drug Allergy 08-18-19 13 [facility] (20 sources) diphenhydrAMINE Drug Allergy 08-18-19 13 [facility] Work Phone: (20 sources) NSAIDs Propensity to adverse reactions to drug 03-20-20 20 [facility] Work Phone: (10 sources) Chlorpheniramine / Pseudoephedrine Drug Allergy 02-02-20 16 Other: See Comments [facility] (20 sources) venlafaxine Drug Allergy 06-28-20 24 [facility] (15 sources) Propylamine derivative antihistamine Drug Intolerance 03-20-20 15 [facility] NEGATED: Highlighted row has been ruled out!Unclassified (10 sources) Other Propensity to adverse reactions 03-20-20 15 Other (See Comments) [facility] Medications Current Medications Medication Drug Class(es) Dates [...] Cholecalciferol (17 sources) Vitamin D Start: 10-28-19 19 take 1 tablet by mouth once, then [...] needed. docusate sodium 50 mg / sennosides, long term 8.6 mg oral tablet (16 sources) Start: 03-10-2025 End: 03-15-2026 take 2 [...] MG tablet 2 tablet epoetin molly-epbx (Retacrit) 87358 UNIT/ML injection (20 sources) epoetin molly-epb x (Retacrit) 37872 UNIT/ML injection Inject 10,000 Units under the skin. Suspended epoetin molly-epb x (Retacrit) 97105 UNIT/ML injection Inject 10,000 Units under the [...] Potassium-sparin g Diuretic, Thiazide Diuretic Start: 11-15-19 19 take 1 capsule by mouth twice daily triamterene-hy drochlorothiaz kathy (DYAZIDE) 37.5-25 MG per capsule Take 1 capsule by mouth 2 times daily 60 capsule 0 11/14/2018 Active Start: 11-25-2017 triamterene-hy drochlorothiazide 37.5-25 mg per capsule 0 11/25/2017 Active hydrOXYzine pamoate 25 mg oral capsule (6 sources) Antihistamine Start: 03-07-2025 End: 03-25-2025 take 1 capsule by mouth every six hours as needed for anxiety hydrOXYzine pamoate (Vistaril) 25 MG capsule Take 1 capsule (25 mg) by mouth every 6 hours as needed for anxiety for up to 10 days. 03/15/2025 Active Incontinence Supply Disposable (Depend Pant Extra Large) misc (20 sources) Start: 06-22-2023 End: 06-21-2024 Incontinence Supply Disposable (Depend Pant Extra Large) misc Indications: Urge incontinence of urine 1 each in the morning and 1 each at noon and 1 each in the evening and 1 each before bedtime. 120 each 06/22/2023 06/21/2024 Active Start: 02-23-2023 End: 06-22-2023 [...] MOUTH EVERY DAY AT 12PM 30 capsule 06/18/2020 Active Start: 07-30-2019 take 1 capsule by [facility] once daily Lactobacillus (ACIDOPHILUS) CAPS capsule TAKE 1 CAPSULE BY MOUTH EVERY DAY AT 12PM 30 capsule 07/30/2019 Active Start: 10-27-2018 take 1 capsule by [facility] once daily Lactobacillus (ACIDOPHILUS) CAPS capsule TAKE [...] on above: Take 1 tablet by diane every 12 hours. miconazole nitrate 0.02 mg/mg topical powder (10 sources) Azole Antifungal Start: 12-30-2024 End: 01-15-2025 miconazole (Micotin) 2 % powder Apply topically 2 times daily. 100 g 01/15/2025 Active nystatin 100 unt/mg topical powder (20 sources) Polyene Antifungal Start: 12-25-2024 nystatin (Mycostatin) 021965 UNIT/GM powder Apply topically 2 times daily. Apply to groin 60 g 12/25/2024 Active Start: 08-29-2020 nystatin (MYCO STATIN) 620777 UNIT/GM ointment APPLY TOPICALLY TO AFFECTED AREA TWICE DAILY 15 g 3 08/29/2020 Active Start: 08-27-2019 nystatin (MYCO STATIN) 230632 UNIT/GM ointment APPLY TOPICALLY TO AFFECTED AREA TWICE DAILY 15 g 3 08/27/2019 Active Start: 12-04-2018 nystatin (MYCO STATIN) 468230 UNIT/GM ointment Apply topically 2 times daily. [...] release tablet 2.5 mg polyethylene glycol 3350 556135 mg / potassium chloride 2980 mg / sodium bicarbonate 6720 mg / sodium chloride 5840 mg / sodium sulfate 67544 mg powder for oral solution (7 sources) Osmotic Laxative Start: 02-07-2018 polyethylene glycol (GAVILYTE-C) 240 g solution Take 4,000 mLs by mouth as directed by GI physician. 4000 mL 0 02/07/2018 Active Polysaccharide iron complex (20 sources) Polysaccharide I elis Complex (IFEREX 150 PO) Take by mouth. Daily Qqr-Ctb-Ifdzok Suspended Polysaccharide I elis Complex (IFEREX 150 PO) Take by mouth. Daily Lwk-Ase-Vptizl Active raNITIdine 150 mg oral tablet (7 sources) Histamine-2 Receptor Antagonist Start: 03-23-2019 take 1 tablet by mouth twice daily ranitidine (ZANTAC) 150 MG tablet TAKE ONE (1) TABLET BY MOUTH TWICE DAILY 60 tablet 3 03/23/2019 Active risperiDONE 3 mg oral tablet (20 sources) Atypical Antipsychotic Start: 12-14-2024 End: 03-15-2025 take 1 tablet by mouth once daily risperiDONE (RisperDAL) 3 MG tablet Indications: Mixed Bipolar Affective Disorder Take 1 tablet (3 mg) by mouth Nightly. 30 tablet 3 12/14/2024 Active Start: 09-13-2024 take 2 tablets by mo [...] mg, Oral, Nightly, Fir st dose on Tue06/28/24 at 2100, Indications: Mixed [...] above: TAKE 4 TABLETS AT BE DTIME Selenium 200 MCG CAPS (20 sources) Start: [...] 8AM 30 capsule 11 10/27/2018 Active sennosides, long term 8.6 mg oral tablet (14 sources) Start: [...] MISC (8 sources) Start: 02-17-[address] valeriy (TEGADERM FIRST AID STYLE) MISC as directed [...] Start: 10-12-2017 take 2 tablets by mo ut three times daily acetaminophen (TYLENOL) 500 MG tablet Take 2 tablets by mouth 3 times daily 120 tablet 3 10/12/2017 Active Start: 09-09-2017 take 2 tablets by mo [facility] every six hours as needed acetaminophen (TYLENOL) 325 mg tablet Take 2 tablets by mouth every 6 hours as needed. 0 09/09/2017 Active acetaminophen (T ylenol) 325 MG tablet Take by mouth. Active Comment on above: Take 2 tablets by mo [facility] every 6 hours as needed. acetaminophen 325 [...] six hours as needed for pain HYDROcodone-acetaminophen ([place]) 5-325 MG tablet Indications: Failure to thrive in adult Take 1 tablet by mouth every 6 hours as needed for moderate pain (4-6) or severe pain (7-10) for up to 3 days. 10 tablet 08/05/2024 08/08/2024 20 ml albumin human, long term 250 mg/ml injection (2 sources) Human Serum Albumin Start: 08-03-2024 End: 08-03-2024 50 g, IntraVENous, at 180 mL/hr, Once, On 08/03/24 at 1215, For 1 dose [id number] 200 actuat albuterol 0.09 mg/actuat metered dose [...] oral capsule (11 sources) Penicillin-class Antibacterial Start: End: take 2 capsules by mouth every twelve hours amoxicillin (Amoxil) 500 MG capsule Take 2 capsules (1,000 mg) by mouth every 12 hours for 10 days. 40 capsule 12/25/2024 01/15/2025 Discontinued (Stop taking at discharge) biotin 1 mg chewable tablet (10 sources) Start: take 1 capsule by mouth once daily biotin 1,000 mcg chew Take 1,000 mcg by mouth once daily. 28 capsule 0 01/12/2017 Active Comment on above: Take 1,000 mcg by [facility] once daily. bisacodyl 10 mg rectal suppository (20 sources) Stimulant Laxative Start: End: take 10 mg rectal route once [...] Minutes, Every 24 hours, First dose on 06/29/24 at 1400, Mini-Bag Plus bag, Suspected Indication [...] 0900 Start: 02-04-2020 take 1 capsule by [facility] once daily Cholecalciferol, Vitamin D3, (VITAMIN D) 25 mcg (1,000 unit) cap Indications: Vitamin D deficiency Take 1 capsule by mouth once daily. 90 capsule 0 02/04/2020 Active Comment on above: Take 1 capsule by mo uth once daily. DULoxetine 30 mg delayed release [...] we ek ergocalciferol (Vitamin D-2) 1.25 MG (31337 UT) capsule Take 1.25 mg by mouth [...] mg, Oral, Daily, Fir st dose on Tue06/28/24 at 1900 0.5 ml heparin sodium, porcine 93371 unt/ml prefilled syringe (8 sources) Unfractionated Heparin, [...] standard during and following administration. lactobacillus acidophilus [id number] unt / pectin 100 mg oral tablet (10 sources) Start: 01-24-2018 Acidophilus-Pe ctin, [place] 25 million cell -100 mg tab TAKE [...] mcg, Oral, Daily, First dose on [place] 7/24/25 at 0840, Tube feeding (TF) interaction, obtain physician order to manage, recommend holding TF for 30 minutes before and after dose. Start: 01-01-2025 End: 01-15-2025 take 137.5 ug by mouth once daily before breakfast 137.5 mcg, Oral, Daily before breakfast, First dose (after last modification) on Tu01/01/25 at 0600, Tube feeding (TF) interaction, obtain [...] Start: 02-25-2015 take 2 tablets by mo ut every week levothyroxine (SYNTHROID) 200 MCG tablet Take 200 mcg by mouth every morning And take two tablets by mouth weekly Tuesday at 7am 0 02/25/2015 Active Comment on above: take 1 tablet by diane th once daily TUESDAY THROUGH TUESDAY - SKIP TUESDAY AND TUESDAY Take 1 tablet by diane th once daily. TAKE 1 TABLET BY DIANE TH EVERY DAY TAKE 1 TABLET BY DIANE TH ONCE DAILY *DOSE CHANGE* magnesium oxide 400 mg oral tablet (10 sources) Start: 09-09-2017 take 1 tablet by mouth twice daily magnesium oxide (MAG-OX) 400 mg tablet Take 1 tablet by mouth twice daily. 0 09/09/2017 Active Comment on above: Take 1 tablet by diane th twice daily. melatonin 3 mg oral tablet [...] crush, chew, or split. polyethylene glycol 3350 49975 mg powder for oral solution (20 sources) [...] ONE TABLET AT 8 AM & 8PM rosuvastatin calcium 10 mg oral tablet (20 sources) HMG-CoA Reductase Inhibitor Start: 12-30-2024 End: 01-15-2025 take 10 mg by mouth once daily 10 mg, Oral, Daily, First dose on 12/30/24 at 1820 Start: 06-30-2023 End: 03-15-2025 take 1 tablet by mouth once daily rosuvastatin (Crestor) 10 MG tablet TAKE 1 TABLET BY MOUTH DAILY 90 tablet 1 11/11/2023 Active Selenium 200 MCG capsule (9 sources) Start: [...] IntraVENous, Every 12 hours, First dose on [facility] 03/07/25 at 0840, For Line Patency: Peripheral [...] mL/hr, Administer over 4 Hours, Once, On [facility] 03/07/25 at 1900, For 1 dose Start: 12-30-2024 End: 01-15-2025 take 5-40 mL intravenously every twelve hours 5-40 mL, IntraVENous, Every 12 hours, First dose on [place] 12/30/24 at 1820, For Line Patency: Peripheral [...] mL/hr, Administer over 1 Hours, Once, On [facility] 11/15/24 at 0855, For 1 dose [...] bolus 1,000 [place] [address] mg powder for oral suspension (4 sources) [...] injury (resolved) - Apply ET mix. Leave TANA. Apply PRN Left Posterior thigh: Scar Tissue - Apply ET mix. 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 Apply PRN Start: 01-02-2025 End: 01-15-2025 apply [...] intestine without diverticulitis] Onset: 8 03-28-2018 Chronic Esophageal disorders (20 sources) Gastro-esophageal reflux disease [...] Onset: 5 Episodic Fracture of upper limb (7 sources) Closed fracture of shaft of fifth [...] Resolved: 2 10-12-2017 Chronic Malaise and fatigue (7 sources) Asthenia; Translations: [Weakness] Onset: 5 11-15-2024 [...] depressive disorder, single episode, unspecified] Onset: 8 Nutritional deficiencies (14 sources) Vitamin D deficiency; Translations: [Vitamin D deficiency, unspecified] Onset: 2 07-28-2017 Chronic Nutritional deficiencies (1 source) Iron deficiency; Translations: [Iron deficiency] 04-17-2024 Episodic Osteoarthritis (20 sources) Unspecified osteoarthritis, unspecified site; Translations: [Patellofemoral osteoarthritis] Onset: 6 11-03-2015 Chronic Other aftercare (1 source) Patient encounter status; 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] Episodic Other connective tissue disease (2 sources) Repeated falls; Translations: [Repeated falls] Onset: Episodic Other diseases of kidney and ureters (1 [...] Onset: 6 10-21-2017 Chronic Other endocrine disorders (1 source) Hyperparathyroidism; Translations: [Hyperparathyroidism, unspecified] 04-17-2024 Chronic Other gastrointestinal disorders (1 source) Incontinence [...] Translations: [Other chronic pain] 12-29-2024 Chronic Other nervous system disorders (1 source) Unspecified lack of coordination; Translations: [Unspecified lack of coordination] Onset: 5 Episodic Other non-traumatic joint disorders (1 source) Joint pain; Translations: [Pain in unspecified joint] Episodic Other non-traumatic joint disorders (2 sources) Pain in unspecified joint; Translations: [Pain in unspecified joint] Onset: 2 Episodic Other non-traumatic joint disorders (2 sources) Hip pain; Translations: [Pain in right hip] 11-03-2024 Episodic Other nutritional; endocrine; and metabolic [...] Translations: [Obstructive sleep apnea (adult) (pediatric)] Onset: 8 Chronic Residual codes; unclassified (4 sources) Altered [...] Translations: [Schizoaffective disorder] Onset: 8 06-05-2018 Chronic Superficial injury; contusion (14 sources) Contusion of scalp, initial encounter; Translations: [Contusion of right ankle] Onset: 8 08-01-2024 Episodic Thyroid disorders (20 sources) Hypothyroidism, unspecified; Translations: [Hypothyroidism] Onset: 7 06-13-2017 Chronic Unclassified (1 source) Problems related to health literacy; Translations: [Problems related to health literacy] Onset: 5 Unclassified (2 sources) New Patient; Translations: [New Patient] Onset: 4 Past or Other Problems Problem Classification Problem [...] mellitus without complications] Resolved: 06-12-2017 06-12-2017 Chronic E Codes: Adverse effects of medical drugs (6 sources) Medication side effects present; Translations: [Adverse effect of unspecified drugs, medicaments and biological substances, subsequent encounter] Onset: 10-02-2024 12-25-2024 Episodic E Codes: Fall (20 sources) Fall; Translations: [Unspecified fall, initial encounter] Onset: 12-30-2024 11-03-2024 Episodic Gastritis and duodenitis (15 sources) Chronic antral [...] hemorrhoids grade I] Onset: 03-28-2018 03-28-2018 Episodic Mycoses (4 sources) Candidal intertrigo; Translations: [Candidiasis of skin and nail] Onset: 12-25-2024 12-25-2024 Episodic Noninfectious gastroenteritis (2 sources) Noninfective gastroenteritis and colitis, unspecified; Translations: [Noninfective gastroenteritis and colitis, unspecified] Onset: 03-28-2018 Episodic Nonspecific chest pain (20 sources) Other chest pain; Translations: [Chest pain] Onset: 02-12-2018 02-14-2018 Episodic Other aftercare (4 sources) 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; 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] Onset: 09-07-2021 Episodic Other diseases of kidney and ureters (20 sources) Nephrogenic diabetes insipidus; 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] Onset: 03-28-2018 Resolved: 12-30-2021 10-12-2017 Chronic Other endocrine disorders (20 sources) Diabetes insipidus; [...] 06-13-2017 06-13-2017 Episodic Other non-traumatic joint disorders (6 sources) Pain in left knee; Translations: [Pain in joint, lower leg] Onset: 12-30-2024 12-28-2024 Episodic Other non-traumatic joint disorders (2 sources) Pain in right hip; Translations: [Pain in right hip] Onset: 11-03-2024 Episodic Other nutritional; endocrine; and metabolic disorders (20 sources) Psychogenic polydipsia; Translations: [Polydipsia] Onset: 10-09-2017 10-12-2017 Episodic Other nutritional; endocrine; and metabolic disorders (2 sources) Polydipsia; Translations: [Polydipsia] Onset: 05-27-2022 Episodic Other nutritional; endocrine; and metabolic disorders [...] history of nicotine dependence] Onset: 02-12-2018 Episodic Spondylosis; intervertebral disc disorders; other back problems (20 sources) Sciatica, left side; Translations: [Sciatica, right side] Onset: 07-28-2017 10-12-2017 Episodic Sprains and strains (20 sources) Strain [...] [Problems related to health literacy] Onset: 12-25-2024 Urinary tract infections (20 sources) Urinary tract infectious disease; Translations: [Urinary tract infection, site not specified] Onset: 03-16-2023 03-16-2023 Episodic Results Test Name Value Interpretation Reference Range Facility 36on 05-28-2025 36 Normal [facility] [id number] 05-13-2025 [id number] Patient Choice Patient Name: JESSY MCKEON Date of : 1965 [facility] 36on 03-25-2025 36 I left a message wit h the medical front desk coordinator and they said they would have Jessy's nurse call the office. [facility] 36 Is Jessy following outpatient with you or should she see someone in her intermediate facility? [facility] 36 [facility] [id number] 03-19-2025 [id number] Patient Choice Patient Name: JESSY MCKEON Date of : 1965 [facility] [id number] 03-15-2025 [id number] [facility] - [address] [facility] [id number] Patient/Family Choice [facility] [id number] [facility] [id number] [facility] [id number] [facility] [id number] [facility] Laboratory - Chemistry and C hemistry - challengeon 03-15-2025 Albumin [Mass/Vol] 2.9 g/dL Low 3.5 - 5.0 g/dL [facility] Anion gap [Moles/Vol] 11 mmol/L 3 - 13 mmol/L [facility] Calcium [Mass/Vol] 9.1 mg/dL 8.4 - 10. 2 mg/dL [facility] Chloride [Moles/Vol] 100 mmol/L 98 - 10 7 mmol/L [facility] CO2 [Moles/Vol] 21 mmol/L Low 22 - 29 mmol/L [facility] Creatinine [Mass/Vol] 2.69 mg/dL High 0.57 - 1.11 mg/dL [facility] GFR/1.73 sq M.predicted (S/P/Bld) [Vol rate/Area] 20 mL/min Low - PINF [facility] Comment on above: Calculation based on the Chronic Kidney Disease Epidemiology Collaboration (CKD-EPI) equation refit without adjustment for race Glucose [Mass/Vol] 78 mg/dL 74 - 100 mg/dL [facility] Phosphate [Mass/Vol] 5.5 mg/dL High 2.3 - 4 .7 mg/dL [facility] Potassium [Moles/Vol] 4.7 mmol/L 3.5 - 5.1 mmol/L [facility] Comment on above: Plasma potassium bats[place] ues may be up to 0.5 mmol/L lower than serum values. Sodium [Moles/Vol] 132 mmol/L Low 136 - 145 mmol/L [facility] Urea nitrogen [Mass/Vol] 53 mg/dL High 9 - 23 mg/dL [facility] No Panel Informationon 03-15 Interpretation and review of laboratory results Abnormal [facility] Nursing Noteon 03-15-2025 Nursing Note Report called and gi pancho to the nurse at the facility Normal [facility] Progress Noteon 03-15-2025 Progress Note Normal [facility] Progress Note Normal [facility] RENAL FUNCTION PANELon 03-15 Albumin [Mass/Vol] 2.9 g/dL Low 3.5-5.0 [facility] Comment on above: Performed By: #### L AB19 ####Nailer Hand: JULI JONES ([id number])[facility])[address] [place] [address] Anion gap [Moles/Vol] 11 mmol/L Normal 3-13 [facility] Comment on above: Performed By: #### L AB19 ####Nailer Hand: JULI JONES ([id number])[facility] ([facility])[address] [place] [address] Calcium [Mass/Vol] 9.1 mg/dL Normal 8.4-10.2 [facility] Comment on above: Performed By: #### L AB19 ####Nailer Hand: JULI JONES ([id number])[facility] ([facility])[address] [place] [address] [place] Chloride [Moles/Vol] 100 mmol/L Normal 98-107 [facility] Comment on above: Performed By: #### L AB19 ####Nailer Hand: JULI JONES ([id number])[facility])[address] [place] [address] CO2 [Moles/Vol] 21 mmol/L Low 22-29 [facility] Comment on above: Performed By: #### L AB19 ####Nailer Hand: JULI JONES ([id number])[facility])[address] [place] [address] Creatinine [Mass/Vol] 2.69 mg/dL High 0.57-1.11 [facility] Comment on above: Performed By: #### L AB19 ####Nailer Hand: JULI JONES ([id number])[facility])[address] [place] [address] GLOMERULAR FILTRATION RATE ML/MIN/1.73 SQ M.PREDICTED 20.0 mL/min/1.73m*2 Low >60.0 [facility] Comment on above: Result Comment: Calc ulation based on the Chronic Kidney Disease Epidemiology Collaboration (CKD-EPI) equation refit without adjustment for race Performed By: #### L AB19 ####Nailer Hand: JULI JONES ([id number])[facility])[address] [place] [address] Glucose [Mass/Vol] 78 mg/dL Normal 74-100 [facility] [facility] Comment on above: Performed By: #### L [id number] ####Nailer Hand: JULI JONES ([phone])[facility])[address] [place] [address] [place] Phosphate [Mass/Vol] 5.5 mg/dL High 2.3-4.7 [facility] Comment on above: Performed By: #### L [id number] ####Nailer Hand: JULI JONES ([phone])[facility])[address] [place] [address] Potassium [Moles/Vol] 4.7 mmol/L Normal 3.5-5.1 [facility] Comment on above: Result Comment: [facility] potassium values may be up to 0.5 mmol/L lower than serum values. Performed By: #### L [id number] ####Nailer Hand: JULI JONES ([phone])[facility] ([facility])[address] [place] [address] Sodium [Moles/Vol] 132 mmol/L Low 136-145 [facility] Comment on above: Performed By: #### L [id number] ####Nailer Hand: JULI JONES ([phone])[facility] ([facility])[address] [place] [address] Urea nitrogen [Mass/Vol] 53 mg/dL High 9-23 [facility] Comment on above: Performed By: #### L [id number] ####Nailer Hand: JULI JONES ([phone])[facility] ([facility])[address] [place] [address] [id number] 03-14-2025 [id number] [facility] auth approved. Secure chat Dr Hayes, says patient will be ready tmw. [facility] [phone] Normal [facility] Laboratory - Chemistry and C hemistry - challengeon 03-14-2025 Albumin [Mass/Vol] 2.7 g/dL Low 3.5 - 5.0 g/dL [facility] Anion gap [Moles/Vol] 10 mmol/L 3 - 13 mmol/L [facility] Calcium [Mass/Vol] 8.9 mg/dL 8.4 - 10. 2 mg/dL [facility] Chloride [Moles/Vol] 101 mmol/L 98 - 10 7 mmol/L [facility] CO2 [Moles/Vol] 22 mmol/L 22 - 29 mmol/L [facility] Creatinine [Mass/Vol] 2.67 mg/dL High 0.57 - 1.11 mg/dL [facility] GFR/1.73 sq M.predicted (S/P/Bld) [Vol rate/Area] 20.1 mL/min Low - PINF [facility] Comment on above: Calculation based on the Chronic Kidney Disease Epidemiology Collaboration (CKD-EPI) equation refit without adjustment for race Glucose [Mass/Vol] 76 mg/dL 74 - 100 mg/dL [facility] Phosphate [Mass/Vol] 5.3 mg/dL High 2.3 - 4 .7 mg/dL [facility] Potassium [Moles/Vol] 4.4 mmol/L 3.5 - 5.1 mmol/L [facility] Comment on above: Plasma potassium batsheva ues may be up to 0.5 mmol/L lower than serum values. Sodium [Moles/Vol] 133 mmol/L Low 136 - 145 mmol/L [facility] Urea nitrogen [Mass/Vol] 43 mg/dL High 9 - 23 mg/dL [facility] No Panel Informationon 03-14 Interpretation and review of laboratory results Abnormal [facility] Progress Noteon 03-14-2025 Progress Note Normal [facility] Progress Note Normal [facility] Progress Note Normal [facility] RENAL FUNCTION PANELon 03-14 Albumin [Mass/Vol] 2.7 g/dL Low 3.5-5.0 [facility] Comment on above: Performed By: #### L [id number] ####Nailer Hand: JULI JONES ([phone])[address] Anion gap [Moles/Vol] 10 mmol/L Normal 3-13 [facility] Comment on above: Performed By: #### L [id number] ####Nailer Hand: JULI [id number])[facility])[address] [place] [address] Calcium [Mass/Vol] 8.9 mg/dL Normal 8.4-10.2 [facility] Comment on above: Performed By: #### L [id number] ####Nailer Hand: JULI [id number])[facility])[address] [place] [address] Chloride [Moles/Vol] 101 mmol/L Normal 98-107 [facility] Comment on above: Performed By: #### L [id number] ####Nailer Hand: JULI [phone])[facility] [place] [address] CO2 [Moles/Vol] 22 mmol/L Normal 22-29 [facility] Comment on above: Performed By: #### L [id number] ####Nailer Hand: JULI JONES ([phone])[facility])[address] [place] [address] Creatinine [Mass/Vol] 2.67 mg/dL High 0.57-1.11 [facility] Comment on above: Performed By: #### L AB19 ####Nailer Hand: JULI JONES ([phone])[facility])[address] [place] [address] GLOMERULAR FILTRATION RATE ML/MIN/1.73 SQ M.PREDICTED 20.1 mL/min/1.73m*2 Low >60.0 [facility] Comment on above: Result Comment: Calc ulation based on the Chronic Kidney Disease Epidemiology Collaboration (CKD-EPI) equation refit without adjustment for race Performed By: #### L [id number] ####Nailer Hand: JULI JONES ([phone])[facility] ([facility])[address] [place] [address] Glucose [Mass/Vol] 76 mg/dL Normal 74-100 [facility] Comment on above: Performed By: #### L [id number] ####Nailer Hand: JULI JONES ([phone])[facility])[address] [place] [address] [place] Phosphate [Mass/Vol] 5.3 mg/dL High 2.3-4.7 [facility] Comment on above: Performed By: #### L [id number] ####Nailer Hand: JULI JONES ([phone])[facility])[address] [place] [address] [place] Potassium [Moles/Vol] 4.4 mmol/L Normal 3.5-5.1 [facility] Comment on above: Result Comment: [facility] potassium values may be up to 0.5 mmol/L lower than serum values. Performed By: #### L [id number] ####Nailer Hand: JULI [id number])[facility] ([facility])[address] [place] [address] Sodium [Moles/Vol] 133 mmol/L Low 136-145 [facility] Comment on above: Performed By: #### L [id number] ####Nailer Hand: JULI JONES ([phone])[facility] ([facility])[address] [place] [address] Urea nitrogen [Mass/Vol] 43 mg/dL High 9-23 [facility] Comment on above: Performed By: #### L AB19 ####Nailer Hand: JULI JONES ([phone])[facility])[address] [place] [address] [id number] 03-13-2025 [id number] Normal [facility] - Chemistry and C hemistry - challengeon 03-13-2025 Albumin [Mass/Vol] 2.5 g/dL Low 3.5 - 5.0 g/dL [facility] Anion gap [Moles/Vol] 7 mmol/L 3 - 13 mmol/L [facility] Calcium [Mass/Vol] 8.5 mg/dL 8.4 - 10. 2 mg/dL [facility] Chloride [Moles/Vol] 100 mmol/L 98 - 10 7 mmol/L [facility] CO2 [Moles/Vol] 25 mmol/L 22 - 29 mmol/L [facility] Creatinine [Mass/Vol] 2.55 mg/dL High 0.57 - 1.11 mg/dL [facility] GFR/1.73 sq M.predicted (S/P/Bld) [Vol rate/Area] 21.3 mL/min Low - PINF [facility] Comment on above: Calculation based on the Chronic Kidney Disease Epidemiology Collaboration (CKD-EPI) equation refit without adjustment for race Glucose [Mass/Vol] 95 mg/dL 74 - 100 mg/dL [facility] Phosphate [Mass/Vol] 5.2 mg/dL High 2.3 - 4 .7 mg/dL [facility] Potassium [Moles/Vol] 4.5 mmol/L 3.5 - 5.1 mmol/L [facility] Comment on above: Plasma potassium batsheva ues may be up to 0.5 mmol/L lower than serum values. Sodium [Moles/Vol] 132 mmol/L Low 136 - 145 mmol/L [facility] Urea nitrogen [Mass/Vol] 43 mg/dL High 9 - 23 mg/dL [facility] No Panel Informationon 03-13 Interpretation and review of laboratory results Abnormal [facility] Progress Noteon 03-13-2025 Progress Note Normal [facility] Progress Note Normal [facility] Progress Note Normal [facility] Progress Note Normal [facility] RENAL FUNCTION PANELon 03-13 Albumin [Mass/Vol] 2.5 g/dL Low 3.5-5.0 [facility] Comment on above: Performed By: #### L [id number] ####Nailer Hand: JULI JONES ([phone])[facility] ([facility])[address] [place] [address] Anion gap [Moles/Vol] 7 mmol/L Normal 3-13 [facility] Comment on above: Performed By: #### L [id number] ####Nailer Hand: JULI JONES ([phone])[facility] ([facility])[address] [place] [address] Calcium [Mass/Vol] 8.5 mg/dL Normal 8.4-10.2 [facility] Comment on above: Performed By: #### L AB19 ####Nailer Hand: JULI JONES ([phone])[facility] ([facility])[address] [place] [address] [place] Chloride [Moles/Vol] 100 mmol/L Normal 98-107 [facility] Comment on above: Performed By: #### L [id number] ####Nailer Hand: JULI JONES ([phone])[facility] ([facility])[address] [place] [address] [place] CO2 [Moles/Vol] 25 mmol/L Normal 22-29 [facility] Comment on above: Performed By: #### L [id number] ####Nailer Hand: JULI JONES ([phone])[facility])[address] [place] [address] [place] Creatinine [Mass/Vol] 2.55 mg/dL High 0.57-1.11 [facility] Comment on above: Performed By: #### L AB19 ####Nailer Hand: JULI JONES ([phone])[facility])[address] [place] [address] GLOMERULAR FILTRATION RATE ML/MIN/1.73 SQ M.PREDICTED 21.3 mL/min/1.73m*2 Low >60.0 [facility] Comment on above: Result Comment: Calc ulation based on the Chronic Kidney Disease Epidemiology Collaboration (CKD-EPI) equation refit without adjustment for race Performed By: #### L [id number] ####Nailer Hand: JULI JONES ([phone])[facility] ([facility])[address] [place] [address] Glucose [Mass/Vol] 95 mg/dL Normal 74-100 [facility] Comment on above: Performed By: #### L AB19 ####Nailer Hand: JULI JONES ([phone])[facility] ([facility])[address] [place] [address] Phosphate [Mass/Vol] 5.2 mg/dL High 2.3-4.7 [facility] Comment on above: Performed By: #### L [id number] ####Nailer Hand: JULI JONES ([phone])[facility] ([facility])[address] [place] [address] Potassium [Moles/Vol] 4.5 mmol/L Normal 3.5-5.1 [facility] Comment on above: Result Comment: [facility] potassium values may be up to 0.5 mmol/L lower than serum values. Performed By: #### L [id number] ####Nailer Hand: JULI JONES ([phone])[facility] ([facility])[address] [place] [address] [place] Sodium [Moles/Vol] 132 mmol/L Low 136-145 [facility] Comment on above: Performed By: #### L AB19 ####Nailer Hand: JULI JONES ([phone])[facility])[address] Urea nitrogen [Mass/Vol] 43 mg/dL High 9-23 [facility] Comment on above: Performed By: #### L [id number] ####Nailer Hand: JULI JONES ([id number])[facility] ([facility])[address] [place] [address] [id number] 03-12-2025 [id number] Normal [facility] Consulton 03-12-2025 Consult Normal [facility] - Chemistry and C hemistry - challengeon 03-12-2025 Immunoglobulin light chains.kappa.free (S) [Mass/Vol] 115.0 mg/L High 3.3 - 19.4 mg/L [facility] Immunoglobulin light chains.kappa.free/Immu noglobulin light chains.lambda.free (S) [Mass ratio] 0.70 0.26 - 1.65 [facility] Comment on above: Free kappa/lambda ratio in [...] therapy of these disorders. Test Performed by [facility], [facility], [address] [place] [address] Santhosh Murrieta M.D., Ph.D., Director of Laboratories , CLIA [id number] Immunoglobulin light chains.lambda.free [Mass/Vol] 164.0 mg/L High 5.7 - 26.3 mg/L [facility] Albumin [Mass/Vol] 2.7 g/dL Low 3.5 - 5.0 g/dL [facility] Anion gap [Moles/Vol] 10 mmol/L 3 - 13 mmol/L [facility] Calcium [Mass/Vol] 9 mg/dL 8.4 - 10. 2 mg/dL [facility] Chloride [Moles/Vol] 103 mmol/L 98 - 10 7 mmol/L [facility] CO2 [Moles/Vol] 20 mmol/L Low 22 - 29 mmol/L [facility] Creatinine [Mass/Vol] 2.23 mg/dL High 0.57 - 1.11 mg/dL [facility] GFR/1.73 sq M.predicted (S/P/Bld) [Vol rate/Area] 25 mL/min Low - PINF [facility] Comment on above: Calculation based on the Chronic Kidney Disease Epidemiology Collaboration (CKD-EPI) equation refit without adjustment for race Glucose [Mass/Vol] 104 mg/dL High 74 - 100 mg/dL [employer] [facility] Phosphate [Mass/Vol] 4.8 mg/dL High 2.3 - 4 .7 mg/dL [facility] Potassium [Moles/Vol] 4.8 mmol/L 3.5 - 5.1 mmol/L [facility] Comment on above: Plasma potassium batsheva ues may be up to 0.5 mmol/L lower than serum values. Sodium [Moles/Vol] 133 mmol/L Low 136 - 145 mmol/L [facility] Urea nitrogen [Mass/Vol] 35 mg/dL High 9 - 23 mg/dL [facility] No Panel Informationon 03-12 Interpretation and review of laboratory results Abnormal [facility] Interpretation and review of laboratory results Abnormal [facility] No Panel InformationOrdered By: Melissa Castellon on 03-12-2025 EULALIA Normal Pattern [facility] [employer] Phone: RELEASED BY Melissa Castellon M.D., MPH [facility] Work Phone: REVIEWED BY Leana Cho MD [facility] Work Phone: [employer] Phone: Progress Noteon 03-12-2025 Progress Note Normal [facility] Progress Note OCCUPATIONAL THERAPY [facility] Name/MRN: Jessy Mckeon ([id number]) Date: 03/12/2025 Pt is currently refusing OT at this time. OT will re-attempt to see pt as schedule allows. JOCY Weaver Normal [facility] Progress Note Normal [facility] RENAL FUNCTION PANELon 03-12 Albumin [Mass/Vol] 2.7 g/dL Low 3.5-5.0 [facility] Comment on above: Performed By: #### L [id number] ####Nailer Hand: JULI JONES ([phone])[facility])[address] [place] [address] Anion gap [Moles/Vol] 10 mmol/L Normal 3-13 [facility] Comment on above: Performed By: #### L AB19 ####Nailer Hand: JULI JONES ([phone])[facility])[address] [place] [address] Calcium [Mass/Vol] 9.0 mg/dL Normal 8.4-10.2 [facility] Comment on above: Performed By: #### L AB19 ####Nailer Hand: JULI JONES ([phone])[facility])[address] [place] [address] Chloride [Moles/Vol] 103 mmol/L Normal 98-107 [facility] Comment on above: Performed By: #### L AB19 ####Nailer Hand: JULI JONES ([phone])[facility])[address] [place] [address] CO2 [Moles/Vol] 20 mmol/L Low 22-29 [facility] Comment on above: Performed By: #### L AB19 ####Nailer Hand: JULI JONES ([phone])[facility])[address] [place] [address] Creatinine [Mass/Vol] 2.23 mg/dL High 0.57-1.11 [facility] Comment on above: Performed By: #### L AB19 ####Nailer Hand: JULI JONES ([phone])[facility])[address] [place] [address] GLOMERULAR FILTRATION RATE ML/MIN/1.73 SQ M.PREDICTED 25.0 mL/min/1.73m*2 Low >60.0 [facility] Comment on above: Result Comment: Calc ulation based on the Chronic Kidney Disease Epidemiology Collaboration (CKD-EPI) equation refit without adjustment for race Performed By: #### L AB19 ####Nailer Hand: JULI JONES ([phone])[facility])[address] [place] [address] Glucose [Mass/Vol] 104 mg/dL High 74-100 [facility] Comment on above: Performed By: #### L AB19 ####Nailer Hand: JULI JONES ([phone])[facility])[address] [place] [address] Phosphate [Mass/Vol] 4.8 mg/dL High 2.3-4.7 [facility] Comment on above: Performed By: #### L AB19 ####Nailer Hand: JULI JONES ([phone])[facility])[address] [place] [address] Potassium [Moles/Vol] 4.8 mmol/L Normal 3.5-5.1 [facility] Comment on above: Result Comment: [facility] potassium values may be up to 0.5 mmol/L lower than serum values. Performed By: #### L AB19 ####Nailer Hand: JULI JONES ([phone])[address] Sodium [Moles/Vol] 133 mmol/L Low 136-145 [facility] Comment on above: Performed By: #### L AB19 ####Nailer Hand: JULI JONES ([phone])[address] Urea nitrogen [Mass/Vol] 35 mg/dL High 9-23 [facility] Comment on above: Performed By: #### L AB19 ####Nailer Hand: JULI JONES ([phone])[facility])[address] [place] [address] [id number] 03-11-2025 [id number] created in HENS per TCC request. Facility notified via [employer]. [facility] [phone] Task CLASSIFICATION INSPECTOR to [phone] Secure chat Dr Tucker to complete IRASEMA. [facility] [phone] Secure chat from Dr Tucker to start auth. Told [facility] to start auth. [facility] [phone] Normal [facility] IG CONCENTRATION, BLOOD (IMM UNOFIXATION ELECTROPHORESIS)on 03-11-2025 IGA, BLOOD 174 mg/dL Normal 65-450 [facility] Comment on above: Performed By: #### L [id number] ####Nailer Hand: JULI JONES ([phone])[facility])[address] [place] [address] IGG, BLOOD 1576 mg/dL Normal 540-1722 [facility] Comment on above: Performed By: #### L [id number] ####Nailer Hand: JULI JONES ([phone])[facility])[address] [place] [address] IGM, BLOOD 110 mg/dL Normal 25-265 [facility] Comment on above: Performed By: #### L [id number] ####Nailer Hand: JULI JONES ([phone])[facility])[address] [place] [address] IMMUNOFIXATION ELECTROPHORES Sherry 03-11-2025 IMMUNOFIXATION ELECTROPHORESIS Normal Pattern Normal [facility] Comment on above: Performed By: #### L [id number] ####Nailer Hand: JULI JONES ([id number])[facility])[address] [place] [address] RELEASED BY Melissa Castellon M.D., MPH [facility] Comment on above: Performed By: #### L [id number] ####Nailer Hand: JULI JONES ([phone])[facility])[address] [place] [address] REVIEWED BY Leana Cho MD [facility] Comment on above: Performed By: #### L [id number] ####Nailer Hand: JULI JONES ([phone])[facility] ([facility])[address] [place] [address] K/L QNT FREE LIGHT CHAINS WI TH RATIO (BKR QUEST)on 03-11-2025 QUEST KAPPA LIGHT CHAIN, FREE, SERUM 115.0 mg/L High 3.3-19.4 [facility] Comment on above: Performed By: #### L [id number] ####[facility] ([employer])[address] [place], [place] [facility] QUEST KAPPA/LAMBDA LIGHT CHAINS FREE WITH RATIO, SERUM 0.70 Normal 0.26-1.65 [facility] Comment on above: Result Comment: Free kappa/lambda [...] response totherapy of these disorders.Test Performed by [facility],[employer] [facility],[address] [place] [address] [id number] Murrieta M.D., Ph.D., Director of [phone], CLIA [id number] Performed By: #### L [id number] ####[facility] ([employer])[address] [place] [facility] QUEST LAMBDA LIGHT CHAIN, FREE, SERUM 164.0 mg/L High 5.7-26.3 [facility] Comment on above: Performed By: #### L [id number] ####[facility] ([employer])[address] [place], [place] Laboratory - Chemistry and C hemistry - challengeon 03-11-2025 IgA [Mass/Vol] 174 mg/dL 65 - 450 mg/dL [facility] IgG [Mass/Vol] 1576 mg/dL 540 - 1722 mg/dL [facility] IgM [Mass/Vol] 110 mg/dL 25 - 265 mg/dL [facility] Albumin [Mass/Vol] 2.7 g/dL Low 3.5 - 5.0 g/dL [facility] Anion gap [Moles/Vol] 8 mmol/L 3 - 13 mmol/L [facility] Calcium [Mass/Vol] 8.5 mg/dL 8.4 - 10. 2 mg/dL [facility] Chloride [Moles/Vol] 99 mmol/L 98 - 10 7 mmol/L [facility] CO2 [Moles/Vol] 25 mmol/L 22 - 29 mmol/L [facility] Creatinine [Mass/Vol] 2.15 mg/dL High 0.57 - 1.11 mg/dL [facility] GFR/1.73 sq M.predicted (S/P/Bld) [Vol rate/Area] 26.1 mL/min Low - PINF [facility] Comment on above: Calculation based on the Chronic Kidney Disease Epidemiology Collaboration (CKD-EPI) equation refit without adjustment for race Glucose [Mass/Vol] 75 mg/dL 74 - 100 mg/dL [facility] Phosphate [Mass/Vol] 4.6 mg/dL 2.3 - 4 .7 mg/dL [facility] Potassium [Moles/Vol] 4.4 mmol/L 3.5 - 5.1 mmol/L [facility] Sodium [Moles/Vol] 132 mmol/L Low 136 - 145 mmol/L [facility] Urea nitrogen [Mass/Vol] 33 mg/dL High 9 - 23 mg/dL [facility] Laboratory - Chemistry and C hemistry - challengeOrdered By: Johnny Macdonald on 03-11-2025 Osmolality [Osmolality] 291 mosm/kg [facility] No Panel Informationon 03-11 Interpretation and review of laboratory results Normal [facility] Interpretation and review of laboratory results Abnormal [facility] No Panel InformationOrdered By: Johnny Macdonald on 03-11-2025 Interpretation and review of laboratory results Normal [facility] Nursing Noteon 03-11-2025 Nursing Note Normal [facility] OSMOLALITY, SERUMon 03-11-20 25 OSMOLALITY, SERUM 291 mOsm/kg Normal 280-300 [facility] Comment on above: Order Comment: Chidi flores collect and send urine and serum labs together Performed By: #### L [id number] ####Nailer Hand: JULI JONES ([phone])[facility])[address] [place] [address] Progress Noteon 03-11-2025 Progress Note Normal [facility] Progress Note Normal [facility] Progress Note Normal [facility] RENAL FUNCTION PANELon 03-11 Albumin [Mass/Vol] 2.7 g/dL Low 3.5-5.0 [facility] Comment on above: Performed By: #### L [id number] ####Nailer Hand: JULI JONES ([phone])[facility] ([facility])[address] [place] [address] Anion gap [Moles/Vol] 8 mmol/L Normal 3-13 [facility] Comment on above: Performed By: #### L [id number] ####Nailer Hand: JULI JONES ([phone])[facility] ([facility])[address] [place] [address] Calcium [Mass/Vol] 8.5 mg/dL Normal 8.4-10.2 [facility] Comment on above: Performed By: #### L [id number] ####Nailer Hand: JULI JONES ([phone])[facility] ([facility])[address] [place] [address] [place] Chloride [Moles/Vol] 99 mmol/L Normal 98-107 [facility] Comment on above: Performed By: #### L [id number] ####Nailer Hand: JULI JONES ([phone])[facility] ([facility])[address] [place] [address] CO2 [Moles/Vol] 25 mmol/L Normal 22-29 [facility] Comment on above: Performed By: #### L [id number] ####Nailer Hand: JULI JONES ([id number])[facility] ([facility])[address] [place] [address] [place] Creatinine [Mass/Vol] 2.15 mg/dL High 0.57-1.11 [facility] Comment on above: Performed By: #### L AB19 ####Nailer Hand: JULI JONES ([phone])[facility])[address] [place] [address] [place] GLOMERULAR FILTRATION RATE ML/MIN/1.73 SQ M.PREDICTED 26.1 mL/min/1.73m*2 Low >60.0 [facility] Comment on above: Result Comment: Calc ulation based on the Chronic Kidney Disease Epidemiology Collaboration (CKD-EPI) equation refit without adjustment for race Performed By: #### L AB19 ####Nailer Hand: JULI JONES ([phone])[facility] ([facility])[address] [place] [address] Glucose [Mass/Vol] 75 mg/dL Normal 74-100 [facility] Comment on above: Performed By: #### L AB19 ####Nailer Hand: JULI JONES ([phone])[facility] ([facility])[address] [place] [address] [place] Phosphate [Mass/Vol] 4.6 mg/dL Normal 2.3-4.7 [facility] Comment on above: Performed By: #### L AB19 ####Nailer Hand: JULI JONES ([phone])[facility] ([facility])[address] [place] [address] [place] Potassium [Moles/Vol] 4.4 mmol/L Normal 3.5-5.1 [facility] Comment on above: Performed By: #### L AB19 ####Nailer Hand: JULI JNOES ([phone])[facility] ([facility])[address] [place] [address] [place] Sodium [Moles/Vol] 132 mmol/L Low 136-145 [facility] Comment on above: Performed By: #### L AB19 ####Nailer Hand: JULI JONES ([phone])[facility] ([facility])[address] [place] [address] [place] Urea nitrogen [Mass/Vol] 33 mg/dL High 9-23 [facility] Comment on above: Performed By: #### L AB19 ####Nailer Hand: JULI JONES ([phone])[facility] ([address] Laboratory - Chemistry and C hemistry - challengeOrdered By: Meera Tucker on 03-10-2025 Osmolality [Osmolality] 289 mosm/kg [facility] - Chemistry and C hemistry - challengeon 03-10-2025 Albumin [Mass/Vol] 2.6 g/dL Low 3.5 - 5.0 g/dL [facility] Anion gap [Moles/Vol] 10 mmol/L 3 - 13 mmol/L [facility] Calcium [Mass/Vol] 8.7 mg/dL 8.4 - 10. 2 mg/dL [facility] Chloride [Moles/Vol] 99 mmol/L 98 - 10 7 mmol/L [facility] CO2 [Moles/Vol] 22 mmol/L 22 - 29 mmol/L [facility] Creatinine [Mass/Vol] 2.18 mg/dL High 0.57 - 1.11 mg/dL [facility] GFR/1.73 sq M.predicted (S/P/Bld) [Vol rate/Area] 25.7 mL/min Low - PINF [facility] Comment on above: Calculation based on the Chronic Kidney Disease Epidemiology Collaboration (CKD-EPI) equation refit without adjustment for race Glucose [Mass/Vol] 74 mg/dL 74 - 100 mg/dL [facility] Phosphate [Mass/Vol] 4.2 mg/dL 2.3 - 4 .7 mg/dL [facility] Potassium [Moles/Vol] 5.1 mmol/L 3.5 - 5.1 mmol/L [facility] Comment on above: Plasma potassium batsheva ues may be up to 0.5 mmol/L lower than serum values. Sodium [Moles/Vol] 131 mmol/L Low 136 - 145 mmol/L [facility] Urea nitrogen [Mass/Vol] 29 mg/dL High 9 - 23 mg/dL [facility] No Panel InformationOrdered By: Meera Tucker on 03-10-2025 Interpretation and review of laboratory results Normal [facility] No Panel Informationon 03-10 Interpretation and review of laboratory results Abnormal [facility] OSMOLALITY, SERUMon 03-10-20 25 OSMOLALITY, SERUM 289 mOsm/kg Normal 280-300 [facility] Comment on above: Order Comment: Chidi flores collect and send urine and serum labs together Performed By: #### L [id number] ####Nailer Hand: JULI JONES ([phone])[facility] ([facility])[address] [place] [address] Progress Noteon 03-10-2025 Progress Note Normal [facility] Progress Note Normal [facility] Progress Note Normal [facility] RENAL FUNCTION PANELon 03-10 Albumin [Mass/Vol] 2.6 g/dL Low 3.5-5.0 [facility] Comment on above: Performed By: #### L AB19 ####Nailer Hand: JULI JONES ([phone])[facility] ([facility])[address] [place] [address] Anion gap [Moles/Vol] 10 mmol/L Normal 3-13 [facility] Comment on above: Performed By: #### L AB19 ####Nailer Hand: JULI JONES ([phone])[facility] ([facility])[address] [place] [address] Calcium [Mass/Vol] 8.7 mg/dL Normal 8.4-10.2 [facility] Comment on above: Performed By: #### L AB19 ####Nailer Hand: JULI JONES ([phone])[facility] ([facility])[address] [place] [address] [place] Chloride [Moles/Vol] 99 mmol/L Normal 98-107 [facility] Comment on above: Performed By: #### L AB19 ####Nailer Hand: JULI JONES ([phone])[facility] ([facility])[address] [place] [address] CO2 [Moles/Vol] 22 mmol/L Normal 22-29 [facility] Comment on above: Performed By: #### L AB19 ####Nailer Hand: JULI JONES ([phone])[facility])[address] [place] [address] Creatinine [Mass/Vol] 2.18 mg/dL High 0.57-1.11 [facility] Comment on above: Performed By: #### L AB19 ####Nailer Hand: JULI JONES ([phone])[facility])[address] [place] [address] [place] GLOMERULAR FILTRATION RATE ML/MIN/1.73 SQ M.PREDICTED 25.7 mL/min/1.73m*2 Low >60.0 [facility] Comment on above: Result Comment: Calc ulation based on the Chronic Kidney Disease Epidemiology Collaboration (CKD-EPI) equation refit without adjustment for race Performed By: #### L AB19 ####Nailer Hand: JULI JONES ([phone])[facility] ([facility])[address] [place] [address] Glucose [Mass/Vol] 74 mg/dL Normal 74-100 [facility] Comment on above: Performed By: #### L AB19 ####Nailer Hand: JULI JONES ([phone])[facility] ([facility])[address] [place] [address] Phosphate [Mass/Vol] 4.2 mg/dL Normal 2.3-4.7 [facility] Comment on above: Performed By: #### L AB19 ####Nailer Hand: JULI JONES ([phone])[facility])[address] [place] [address] [place] Potassium [Moles/Vol] 5.1 mmol/L Normal 3.5-5.1 [facility] Comment on above: Result Comment: [facility] potassium values may be up to 0.5 mmol/L lower than serum values. Performed By: #### L AB19 ####Nailer Hand: JULI JONES ([phone])[facility])[address] [place] [address] [place] Sodium [Moles/Vol] 131 mmol/L Low 136-145 [facility] Comment on above: Performed By: #### L AB19 ####Nailer Hand: JULI [phone])[facility] ([facility])[address] [place] [address] [place] Urea nitrogen [Mass/Vol] 29 mg/dL High 9-23 [facility] Comment on above: Performed By: #### L AB19 ####Nailer Hand: JULI JONES ([phone])[facility] ([facility])[address] [place] [address] BASIC METABOLIC PANELon 07-2 Anion gap [Moles/Vol] 8 mmol/L Normal 3-13 [facility] Comment on above: Performed By: #### L AB15, LAB18 ####Nailer Hand: JULI JONES ([phone])[facility] ([facility])[address] [place] [address] Calcium [Mass/Vol] 8.5 mg/dL Normal 8.4-10.2 [facility] Comment on above: Performed By: #### L AB15, LAB18 ####Nailer Hand: JULI JONES ([phone])[facility] ([facility])[address] [place] [address] [place] Chloride [Moles/Vol] 100 mmol/L Normal 98-107 [facility] Comment on above: Performed By: #### L AB15, LAB18 ####Nailer Hand: JULI JONES ([phone])[facility] ([facility])[address] [place] [address] [place] CO2 [Moles/Vol] 22 mmol/L Normal 22-29 [facility] Comment on above: Performed By: #### L AB15, LAB18 ####Nailer Hand: JULI JONES ([phone])[facility] ([facility])[address] [place] [address] [place] Creatinine [Mass/Vol] 2.09 mg/dL High 0.57-1.11 [facility] Comment on above: Performed By: #### L AB15, LAB18 ####Nailer Hand: JULI JONES ([phone])[facility] ([facility])[address] [place] [address] [place] GLOMERULAR FILTRATION RATE ML/MIN/1.73 SQ M.PREDICTED 27.0 mL/min/1.73m*2 Low >60.0 [facility] Comment on above: Result Comment: Calc ulation based on the Chronic Kidney Disease Epidemiology Collaboration (CKD-EPI) equation refit without adjustment for race Performed By: #### L AB15, LAB18 ####Nailer Hand: JULI JONES ([phone])[facility])[address] [place] [address] Glucose [Mass/Vol] 80 mg/dL Normal 74-100 [facility] Comment on above: Performed By: #### L AB15, LAB18 ####Nailer Hand: JULI JONES ([phone])[address] Potassium [Moles/Vol] 4.9 mmol/L Normal 3.5-5.1 [facility] Comment on above: Result Comment: [facility] potassium values may be up to 0.5 mmol/L lower than serum values. Performed By: #### L AB15, LAB18 ####Nailer Hand: JULI JONES ([phone])[facility])[address] [place] [address] Sodium [Moles/Vol] 130 mmol/L Low 136-145 [facility] Comment on above: Performed By: #### L AB15, LAB18 ####Nailer Hand: JULI JONES ([phone])[address] Urea nitrogen [Mass/Vol] 22 mg/dL Normal 9-23 [facility] Comment on above: Performed By: #### L AB15, LAB18 ####Nailer Hand: JULI JONES ([phone])[address] Basic metabolic 1998 panelon 03-09-2025 Anion gap [Moles/Vol] 8 mmol/L 3 - 13 mmol/L [facility] Calcium [Mass/Vol] 8.5 mg/dL 8.4 - 10. 2 mg/dL [facility] Chloride [Moles/Vol] 100 mmol/L 98 - 10 7 mmol/L [facility] CO2 [Moles/Vol] 22 mmol/L 22 - 29 mmol/L [facility] Creatinine [Mass/Vol] 2.09 mg/dL High 0.57 - 1.11 mg/dL [facility] GFR/1.73 sq M.predicted (S/P/Bld) [Vol rate/Area] 27 mL/min Low - PINF [facility] Comment on above: Calculation based on the Chronic Kidney Disease Epidemiology Collaboration (CKD-EPI) equation refit without adjustment for race Glucose [Mass/Vol] 80 mg/dL 74 - 100 mg/dL [facility] Interpretation and review of laboratory results Abnormal [facility] Potassium [Moles/Vol] 4.9 mmol/L 3.5 - 5.1 mmol/L [facility] Comment on above: Plasma potassium batsheva ues may be up to 0.5 mmol/L lower than serum values. Sodium [Moles/Vol] 130 mmol/L Low 136 - 145 mmol/L [facility] Urea nitrogen [Mass/Vol] 22 mg/dL 9 - 23 mg/dL [facility] LIPID PANELon 03-09-2025 Cholesterol [Mass/Vol] 116 mg/dL Normal <200 [facility] Comment on above: Performed By: #### L AB15, LAB18 ####Nailer Hand: JULI JONES ([phone])[facility])[address] [place] [address] Cholesterol in HDL [Mass/Vol] 34 mg/dL Low >=60 [facility] Comment on above: Performed By: #### L AB15, LAB18 ####Nailer Hand: JULI JONES ([phone])[facility] ([facility])[address] [place] [address] Cholesterol.total/Chol esterol in HDL [Mass ratio] 3 {ratio} Normal [facility] Comment on above: Result Comment: Ref Range:< 3 Low Risk for CHD3-6 Mod Risk for CHD> 6 High Risk for CHD Performed By: #### L AB15, LAB18 ####Nailer Hand: JULI JONES ([phone])[facility] ([facility])[address] LOW DENSITY LIPOPROTEIN 63 mg/dL Normal 0-<100 [facility] Comment on above: Performed By: #### L AB15, LAB18 ####Nailer Hand: JULI JONES ([phone])[facility] ([facility])[address] [place] [address] NON-HDL CHOLESTEROL, CALCULATED 82 Normal <130 [facility] Comment on above: Performed By: #### L AB15, LAB18 ####Nailer Hand: JULI JONES ([phone])[facility] ([facility])[address] [place] [address] Triglyceride [Mass/Vol] 93 mg/dL Normal <150 [facility] Comment on above: Performed By: #### L AB15, LAB18 ####Nailer Hand: JULI JONES ([phone])[facility] ([facility])[address] [place] [address] VERY LOW DENSITY LIPOPROTEIN, CALCULATED 19 mg/dL Normal <=30 [facility] Comment on above: Performed By: #### L AB15, LAB18 ####Nailer Hand: JULI JONES ([phone])[facility])[address] [place] [address] Lipid 1996 panelon Cholesterol [Mass/Vol] 116 mg/dL NINF - 200 mg/dL [facility] Cholesterol in HDL [Mass/Vol] 34 mg/dL Low 60 - PINF mg/dL [facility] Cholesterol in LDL [Mass/Vol] 63 mg/dL 0 - <100 [facility] Cholesterol.total/Chol esterol in HDL [Mass ratio] 3 {ratio} [facility] Comment on above: Ref Range: < 3 Low Risk for CHD 3-6 Mod Risk for CHD > 6 High Risk for CHD Interpretation and review of laboratory results Abnormal [facility] NON-HDL CHOLESTEROL, CALCULATED 82 NINF - 130 [facility] Triglyceride [Mass/Vol] 93 mg/dL NINF - 150 mg/dL [facility] VERY LOW DENSITY LIPOPROTEIN, CALCULATED 19 mg/dL NINF - 30 mg/dL [facility] Progress Noteon 03-09-2025 Progress Note Normal [facility] Progress Note Normal [facility] 25-hydroxyvitamin D3 [Mass/V ol]on 03-08-2025 Interpretation and review of laboratory results Normal [facility] Target concentration : 30 - 40 ng/mL; toxicity seen at concentrations >100 ng/mL Less than 20 ng/mL: Indicative of Vit D deficiency Test performed by [facility] [place], measuring Total Vitamin D, not individual fractions. [facility] [id number] 03-08-2025 [id number] Normal [facility] [id number] Accepted into [facility] are of [place]. Patient is happy. Normal [facility] [id number] Normal [facility] [id number] Normal [facility] BASIC METABOLIC PANELon 02-13 Anion gap [Moles/Vol] 3 mmol/L Normal 3-13 [facility] Comment on above: Performed By: #### Kesha AB69, LAB67, LAB15 ####Nailer Hand: JULI JONES ([phone])[facility])[address] [place] [address] Calcium [Mass/Vol] 8.3 mg/dL Low 8.4-10.2 [facility] Comment on above: Performed By: #### Kesha PRAKASH69, LAB67, LAB15 ####Nailer Hand: JULI JONES ([phone])[facility] ([facility])[address] [place] [address] [place] Chloride [Moles/Vol] 98 mmol/L Normal 98-107 [facility] Comment on above: Performed By: #### Kesha AB69, LAB67, LAB15 ####Nailer Hand: JULI JONES ([phone])[facility] ([facility])[address] [place] [address] [place] CO2 [Moles/Vol] 24 mmol/L Normal 22-29 [facility] Comment on above: Performed By: #### Kesha AB69, LAB67, LAB15 ####Nailer Hand: JULI JONES ([phone])[facility] ([facility])[address] [place] [address] [place] Creatinine [Mass/Vol] 1.81 mg/dL High 0.57-1.11 [facility] Comment on above: Performed By: #### Kesha RODRIGUEZ, LAB67, LAB15 ####Nailer Hand: JULI JONES ([phone])[facility])[address] [place] [address] GLOMERULAR FILTRATION RATE ML/MIN/1.73 SQ M.PREDICTED 32.1 mL/min/1.73m*2 Low >60.0 [facility] Comment on above: Result Comment: Calc ulation based on the Chronic Kidney Disease Epidemiology Collaboration (CKD-EPI) equation refit without adjustment for race Performed By: #### Kesha RODRIGUEZ, LAB67, LAB15 ####Nailer Hand: JULI JONES ([phone])[facility])[address] [place] [address] Glucose [Mass/Vol] 85 mg/dL Normal 74-100 [facility] Comment on above: Performed By: #### Kesha RODRIGUEZ, LAB67, LAB15 ####Nailer Hand: JULI JONES ([phone])[facility])[address] [place] [address] Potassium [Moles/Vol] 4.4 mmol/L Normal 3.5-5.1 [facility] Comment on above: Result Comment: [facility] potassium values may be up to 0.5 mmol/L lower than serum values. Performed By: #### Kesha RODRIGUEZ LAB67, LAB15 ####Nailer Hand: JULI JONES ([phone])[facility])[address] [place] [address] [place] Sodium [Moles/Vol] 125 mmol/L Low 136-145 [facility] Comment on above: Performed By: #### Kesha RODRIGUEZ, LAB67, LAB15 ####Nailer Hand: JULI JONES ([phone])[facility])[address] [place] [address] Urea nitrogen [Mass/Vol] 17 mg/dL Normal 9-23 [facility] Comment on above: Performed By: #### Kesha RODRIGUEZ, LAB67, LAB15 ####Nailer Hand: JULI JONES ([phone])[address] Basic metabolic 1998 panelon 03-08-2025 Anion gap [Moles/Vol] 3 mmol/L 3 - 13 mmol/L [facility] Calcium [Mass/Vol] 8.3 mg/dL Low 8.4 - 10. 2 mg/dL [facility] Chloride [Moles/Vol] 98 mmol/L 98 - 10 7 mmol/L [facility] CO2 [Moles/Vol] 24 mmol/L 22 - 29 mmol/L [facility] Creatinine [Mass/Vol] 1.81 mg/dL High 0.57 - 1.11 mg/dL [facility] GFR/1.73 sq M.predicted (S/P/Bld) [Vol rate/Area] 32.1 mL/min Low - PINF [facility] Comment on above: Calculation based on the Chronic Kidney Disease Epidemiology Collaboration (CKD-EPI) equation refit without adjustment for race Glucose [Mass/Vol] 85 mg/dL 74 - 100 mg/dL [facility] Potassium [Moles/Vol] 4.4 mmol/L 3.5 - 5.1 mmol/L [facility] Comment on above: Plasma potassium batsheva ues may be up to 0.5 mmol/L lower than serum values. Sodium [Moles/Vol] 125 mmol/L Low 136 - 145 mmol/L [facility] Urea nitrogen [Mass/Vol] 17 mg/dL 9 - 23 mg/dL [facility] CBC W Auto Differential pane l (Bld)on 03-08-2025 Basophils (Bld) [#/Vol] 0 10*3/uL 0.0 - 0.2 10*3/uL [employer] [facility] Basophils/100 WBC (Bld) 0.4 % 0.0 - 2.0 % [facility] Eosinophils (Bld) [#/Vol] 0.4 10*3/uL 0.0 - 0.5 10*3/uL [employer] [facility] Eosinophils/100 WBC (Bld) 4.6 % 0.0 - 6.0 % [facility] Erythrocyte distribution width (RBC) [Ratio] 14.8 % 11.5 - 15.0 % [facility] Hematocrit (Bld) [Volume fraction] 25.4 % Low 35.0 - 47.0 % [facility] Hemoglobin (Bld) [Mass/Vol] 8.4 g/dL Low 11.7 - 16.0 g/dL [facility] Immature granulocytes (Bld) [#/Vol] 0 10*3/uL NINF - 0.1 10*3/uL [facility] Immature granulocytes/100 WBC (Bld) 0.3 % 0.0 - 2.0 % [facility] Interpretation and review of laboratory results Abnormal [facility] Lymphocytes (Bld) [#/Vol] 3.3 10*3/uL 1.0 - 4.3 10*3/uL [facility] Lymphocytes/100 WBC (Bld) 41.8 % 15.0 - 45.0 % [facility] MCH (RBC) [Entitic mass] 31.6 pg 26.0 - 34.0 pg [facility] MCHC (RBC) [Mass/Vol] 33.1 % 30.5 - 36.0 % [facility] MCV (RBC) [Entitic vol] 95.5 fL 77.0 - 99.0 fL [facility] Monocytes (Bld) [#/Vol] 0.9 10*3/uL 0.0 - 0.9 10*3/uL [facility] Monocytes/100 WBC (Bld) 11.8 % 5.0 - 13.0 % [facility] Neutrophils (Bld) [#/Vol] 3.2 10*3/uL 1.8 - 7.5 10*3/uL [facility] Neutrophils/100 WBC (Bld) 41.1 % 38.0 - 82.0 % [facility] Nucleated RBC/100 WBC (Bld) [Ratio] 0 % [facility] Platelet mean volume (Bld) [Entitic vol] 9.7 fL 9.0 - 12.7 fL [facility] Platelets (Bld) [#/Vol] 228 10*3/uL 140 - 440 10*3/uL [facility] RBC (Bld) [#/Vol] 2.66 10*6/uL Low 3.80 - 5.20 10*6/uL [facility] WBC (Bld) [#/Vol] 7.8 10*3/uL 3.6 - 10.7 10*3/uL [facility] CBC WITH AUTO DIFFERENTIALon 03-08-2025 Basophils (Bld) [#/Vol] 0.0 10*3/uL Normal 0.0-0.2 [facility] Comment on above: Performed By: #### L [id number] ####Nailer Hand: JULI JONES ([phone])[facility] ([facility])[address] [place] [address] Basophils/100 WBC (Bld) 0.4 % Normal 0.0-2.0 [facility] Comment on above: Performed By: #### L [id number] ####Nailer Hand: JULI JONES ([phone])[facility])[address] [place] [address] Eosinophils (Bld) [#/Vol] 0.4 10*3/uL Normal 0.0-0.5 [facility] Comment on above: Performed By: #### L [id number] ####Nailer Hand: JULI JONES ([phone])[facility] ([facility])[address] [place] [address] Eosinophils/100 WBC (Bld) 4.6 % Normal 0.0-6.0 [facility] Comment on above: Performed By: #### L [id number] ####Nailer Hand: JULI JONES ([phone])[facility])[address] [place] [address] Erythrocyte distribution width (RBC) [Ratio] 14.8 % Normal 11.5-15.0 [facility] Comment on above: Performed By: #### L [id number] ####Nailer Hand: JULI JONES ([phone])[facility] ([facility])[address] [place] [address] Hematocrit (Bld) [Volume fraction] 25.4 % Low 35.0-47.0 [facility] Comment on above: Performed By: #### L [id number] ####Nailer Hand: JULI JONES ([phone])[facility])[address] [place] [address] Hemoglobin (Bld) [Mass/Vol] 8.4 g/dL Low 11.7-16.0 [facility] Comment on above: Performed By: #### L [id number] ####Nailer Hand: JULI JONES ([phone])[facility])[address] [place] [address] IMMATURE GRANS % 0.3 % Normal 0.0-2.0 [facility] Comment on above: Performed By: #### L [id number] ####Nailer Hand: JULI JONES ([phone])[facility])[address] [place] [address] IMMATURE GRANS ABSOLUTE 0.0 10*3/uL Normal <0.1 [facility] Comment on above: Performed By: #### L [id number] ####Nailer Hand: JULI JONES ([id number])[address] Lymphocytes (Bld) [#/Vol] 3.3 10*3/uL Normal 1.0-4.3 [facility] Comment on above: Performed By: #### L [id number] ####Nailer Hand: JULI JONES ([id number])[address] Lymphocytes/100 WBC (Bld) 41.8 % Normal 15.0-45.0 [facility] Comment on above: Performed By: #### L [id number] ####Nailer Hand: JULI JONES ([id number])[address] MCH (RBC) [Entitic mass] 31.6 pg Normal 26.0-34.0 [facility] Comment on above: Performed By: #### L [id number] ####Nailer Hand: JULI JONES ([id number])[address] MCHC 33.1 % Normal 30.5-36.0 [facility] Comment on above: Performed By: #### L [id number] ####Nailer Hand: JULI [id number])[facility] ([facility])[address] [place] [address] MCV (RBC) [Entitic vol] 95.5 fL Normal 77.0-99.0 [facility] Comment on above: Performed By: #### L [id number] ####Nailer Hand: JULI JONES ([phone])[facility] ([facility])[address] [place] [address] Monocytes (Bld) [#/Vol] 0.9 10*3/uL Normal 0.0-0.9 [facility] Comment on above: Performed By: #### L [id number] ####Nailer Hand: JULI JONES ([phone])[facility])[address] [place] [address] Monocytes/100 WBC (Bld) 11.8 % Normal 5.0-13.0 [facility] Comment on above: Performed By: #### L [id number] ####Nailer Hand: JULI JONES ([phone])[facility] ([facility])[address] [place] [address] NEUTROPHILS ABSOLUTE 3.2 10*3/uL Normal 1.8-7.5 [facility] Comment on above: Performed By: #### L [id number] ####Nailer Hand: JULI JONES ([phone])[facility])[address] [place] [address] Neutrophils/100 WBC (Bld) 41.1 % Normal 38.0-82.0 [facility] Comment on above: Performed By: #### L [id number] ####Nailer Hand: JULI JONES ([phone])[facility] ([facility])[address] [place] [address] NRBC 0.0 /100 WBCs Normal 0.0-2.0 [facility] Comment on above: Performed By: #### L [id number] ####Nailer Hand: JULI JONES ([phone])[facility] ([facility])[address] [place] [address] Platelet mean volume (Bld) [Entitic vol] 9.7 fL Normal 9.0-12.7 [facility] Comment on above: Performed By: #### L [id number] ####Nailer Hand: JULI JONES ([phone])[facility])[address] [place] [address] Platelets (Bld) [#/Vol] 228 10*3/uL Normal 140-440 [facility] Comment on above: Performed By: #### L [id number] ####Nailer Hand: JULI JONES ([phone])[facility])[address] [place] [address] RBC (Bld) [#/Vol] 2.66 10*6/uL Low 3.80-5.20 [facility] Comment on above: Performed By: #### L [id number] ####Nailer Hand: JULI JONES ([phone])[facility])[address] [place] [address] WBC (Bld) [#/Vol] 7.8 10*3/uL Normal 3.6-10.7 [facility] Comment on above: Performed By: #### L [id number] ####Nailer Hand: JULI JONES ([phone])[facility])[address] [place] [address] Cobalamin (Vitamin B12) [Mas s/Vol]on 03-08-2025 Interpretation and review of laboratory results Normal [facility] Consulton 03-08-2025 Consult Normal [facility] Consult Normal [facility] FOLATEon 03-08-2025 FOLATE RESULT 3.7 ng/mL Low 7.0-31.4 [facility] Comment on above: Performed By: #### L AB69, [id number], LAB15 ####Nailer Hand: JULI JONES ([phone])[facility])[address] [place] [address] Laboratory - Chemistry and C hemistry - challengeon 03-08-2025 Sodium (24H U) [Mass/Vol] 29 mmol/L [facility] Sodium [Moles/Vol] 129 mmol/L Low 136 - 145 mmol/L [facility] Cobalamin (Vitamin B12) [Mass/Vol] 689 pg/mL 213 - 816 pg/mL [facility] Folate [Mass/Vol] 3.7 ng/mL Low 7.0 - 31.4 ng/mL [facility] 25-hydroxyvitamin D3 [Mass/Vol] 45 ng/mL 20 - 50 ng/mL [facility] TSH Qn 7.17 m[IU]/L High [facility] Laboratory - Chemistry and C hemistry - challengeOrdered By: Ewelina Pitts on 03-08-2025 Osmolality [Osmolality] 278 mosm/kg Low [facility] No Panel Informationon 03-08 CREATININE, URINE 18.3 mg/dL Low 47.0 - 110.0 mg/dL [facility] Interpretation and review of laboratory results Abnormal [facility] SODIUM, URINE, FRACTIONAL EXCRETION 2.2 [facility] SODIUM, URINE, TUBULAR REABSORPTION 1 [facility] Interpretation and review of laboratory results Abnormal [facility] OSMOLALITY, URINE 104 Low [facility] Repeated [facility] Interpretation and review of laboratory results Abnormal [facility] Interpretation and review of laboratory results Abnormal [facility] No Panel InformationOrdered By: Ewelina Pitts on 03-08-2025 Interpretation and review of laboratory results Abnormal [facility] OSMOLALITY, SERUMon 03-08-20 25 OSMOLALITY, SERUM 278 mOsm/kg Low 280-300 [facility] Comment on above: Result Comment: HARRIET Mayfield COMMENTS:Please collect and send urine and serum labs togetherRepeated Performed By: #### L [id number] ####Nailer Hand: JULI JONES ([phone])[facility] [place] [address] OSMOLALITY, URINEon 03-08-20 25 OSMOLALITY, URINE 104 mOsm/kg Low 300-1000 [facility] Comment on above: Result Comment: HARRIET Mayfield COMMENTS:Please collect and send urine and serum labs togetherRepeated Performed By: #### L [id number], [id number] ####Nailer Hand: JULI JONES ([phone])[facility])[address] [place] [address] Progress Noteon 03-08-2025 Progress Note Normal [facility] Progress Note Normal [facility] Progress Note Nutrition rescreen completed. Chart reviewed. Patient to be monitored and followed by the diet audiometric technician. Blanca Jackson, DT Normal [facility] SODIUMon 03-08-2025 Sodium [Moles/Vol] 129 mmol/L Low 136-145 [facility] Comment on above: Order Comment: Chidi flores collect and send urine and serum labs together Performed By: #### L [id number] ####Nailer Hand: JULI JONES ([phone])[facility])[address] [place] [address] SODIUM, URINE, RANDOMon 02-13 CREATININE, URINE 18.3 mg/dL Low 47.0-110.0 [facility] Comment on above: Performed By: #### L [id number], [id number] ####Nailer Hand: JULI JONES ([phone])[facility])[address] [place] [address] Sodium (U) [Moles/Vol] 29 mmol/L Normal [facility] Comment on above: Performed By: #### L [id number], [id number] ####Nailer Hand: JULI JONES ([phone])[facility])[address] [place] [address] SODIUM, URINE, FRACTIONAL EXCRETION 2.2 Normal [facility] Comment on above: Performed By: #### L [id number], [id number] ####Nailer Hand: JULI JONES ([phone])[facility])[address] [place] [address] SODIUM, URINE, TUBULAR REABSORPTION 1.0 Normal [facility] Comment on above: Performed By: #### L [id number], [id number] ####Nailer Hand: JULI JONES ([phone])[facility])[address] [place] [address] [place] THYROID STIMULATING HORMONEo n 03-08-2025 THYROID STIMULATING HORMONE 7.17 uIU/mL High 0.35-4.94 [facility] Comment on above: Performed By: #### L [id number], [id number] ####Nailer Hand: JULI JONES ([phone])[facility])[address] [place] [address] [place] TSH Qnon 03-08-2025 Interpretation and review of laboratory results Abnormal [facility] VITAMIN B12on 03-08-2025 Cobalamin (Vitamin B12) [Mass/Vol] 689 pg/mL Normal 213-816 [facility] Comment on above: Performed By: #### L AB69, LAB67, LAB15 ####Nailer Hand: JULI JONES ([phone])[facility] ([facility])[address] [place] [address] VITAMIN D DEFICIENCY SCREENI NG (VIT D 25)on 03-08-2025 VIT D 25-OH, TOTAL 45 ng/mL Normal See comment [facility] Comment on above: Result Comment: HARRIET Mayfield COMMENTS:Target concentration: 30 - 40 ng/mL; toxicity seen at concentrations >100 ng/mLLess than 20 ng/mL: Indicative of Vit D deficiencyTest performed by [employer], measuring Total Vitamin D, not individual fractions. Performed By: #### L [id number], [id number] ####Nailer Hand: JULI JONES ([phone])[facility] ([facility])[address] [place] [address] [id number] 03-07-2025 [id number] Normal [facility] BASIC METABOLIC PANELon 02-13 Anion gap [Moles/Vol] 9 mmol/L Normal 3-13 [facility] Comment on above: Performed By: #### L AB15 ####Nailer Hand: JULI JONES ([phone])[facility] ([facility])[address] [place] [address] Calcium [Mass/Vol] 8.5 mg/dL Normal 8.4-10.2 [facility] Comment on above: Performed By: #### L AB15 ####Nailer Hand: JULI JONES ([phone])[facility])[address] [place] [address] [place] Chloride [Moles/Vol] 99 mmol/L Normal 98-107 [facility] Comment on above: Performed By: #### L AB15 ####Nailer Hand: JULI JONES ([phone])[facility])[address] [place] [address] CO2 [Moles/Vol] 20 mmol/L Low 22-29 [facility] Comment on above: Performed By: #### L AB15 ####Nailer Hand: JULI JONES ([phone])[facility] ([facility])[address] [place] [address] Creatinine [Mass/Vol] 1.88 mg/dL High 0.57-1.11 [facility] Comment on above: Performed By: #### L AB15 ####Nailer Hand: JULI JONES ([phone])[facility] ([facility])[address] [place] [address] GLOMERULAR FILTRATION RATE ML/MIN/1.73 SQ M.PREDICTED 30.7 mL/min/1.73m*2 Low >60.0 [facility] Comment on above: Result Comment: Calc ulation based on the Chronic Kidney Disease Epidemiology Collaboration (CKD-EPI) equation refit without adjustment for race Performed By: #### L [id number] ####Nailer Hand: JULI JONES ([phone])[facility] ([facility])[address] [place] [address] Glucose [Mass/Vol] 88 mg/dL Normal 74-100 [facility] Comment on above: Performed By: #### L [id number] ####Nailer Hand: JULI JONES ([phone])[facility] ([facility])[address] [place] [address] Potassium [Moles/Vol] 4.1 mmol/L Normal 3.5-5.1 [facility] Comment on above: Result Comment: [facility] potassium values may be up to 0.5 mmol/L lower than serum values. Performed By: #### L [id number] ####Nailer Hand: JULI JONES ([phone])[facility])[address] [place] [address] Sodium [Moles/Vol] 128 mmol/L Low 136-145 [facility] Comment on above: Performed By: #### L [id number] ####Nailer Hand: JULI JONES ([phone])[facility] ([facility])[address] [place] [address] Urea nitrogen [Mass/Vol] 16 mg/dL Normal 9-23 [facility] Comment on above: Performed By: #### L [id number] ####Nailer Hand: JULI JONES ([phone])[facility] ([facility])[address] [place] [address] Basic metabolic 1998 panelon 03-07-2025 Anion gap [Moles/Vol] 9 mmol/L 3 - 13 mmol/L [facility] Calcium [Mass/Vol] 8.5 mg/dL 8.4 - 10. 2 mg/dL [facility] Chloride [Moles/Vol] 99 mmol/L 98 - 10 7 mmol/L [facility] CO2 [Moles/Vol] 20 mmol/L Low 22 - 29 mmol/L [facility] Creatinine [Mass/Vol] 1.88 mg/dL High 0.57 - 1.11 mg/dL [facility] GFR/1.73 sq M.predicted (S/P/Bld) [Vol rate/Area] 30.7 mL/min Low - PINF [facility] Comment on above: Calculation based on the Chronic Kidney Disease Epidemiology Collaboration (CKD-EPI) equation refit without adjustment for race Glucose [Mass/Vol] 88 mg/dL 74 - 100 mg/dL [facility] Interpretation and review of laboratory results Abnormal [facility] Potassium [Moles/Vol] 4.1 mmol/L 3.5 - 5.1 mmol/L [facility] Comment on above: Plasma potassium batsheva ues may be up to 0.5 mmol/L lower than serum values. Sodium [Moles/Vol] 128 mmol/L Low 136 - 145 mmol/L [facility] Urea nitrogen [Mass/Vol] 16 mg/dL 9 - 23 mg/dL [facility] COMPLETE URINALYSIS WITH REF ANN TO CULTUREon 03-07-2025 BACTERIA (#/HPF) IN URINE Negative Normal Negative [facility] Comment on above: Performed By: #### L [id number] ####Nailer Hand: JULI JONES ([phone])[facility] ([facility])[address] [place] [address] BILIRUBIN, TOTAL PRESENCE IN URINE Negative Normal Negative [facility] Comment on above: Performed By: #### L [id number] ####Nailer Hand: JULI JONES ([phone])[facility] ([facility])[address] [place] [address] Clarity (U) Clear Normal Clear [facility] Comment on above: Performed By: #### L [id number] ####Nailer Hand: JULI JONES ([phone])[facility])[address] [place] [address] Color (U) Colorless Normal Lt. Yellow [facility] Comment on above: Performed By: #### L [id number] ####Nailer Hand: JULI JONES ([phone])[facility] ([facility])[address] [place] [address] GLUCOSE (MG/DL) IN URINE Normal Normal Normal (<70) [facility] Comment on above: Performed By: #### L [id number] ####Nailer Hand: JULI JONES ([phone])[facility])[address] [place] [address] HEMOGLOBIN PRESENCE IN URINE Negative Normal Negative [facility] Comment on above: Performed By: #### L [id number] ####Nailer Hand: JULI JONES ([phone])[facility] ([facility])[address] [place] [address] HYALINE CASTS (#/LPF) IN URINE SEDIMENT BY MICROSCOPY Negative Normal Negative [facility] Comment on above: Performed By: #### L [id number] ####Nailer Hand: JULI JONES ([phone])[facility] ([facility])[address] [place] [address] Ketones Ql (U) Negative Normal Negative [facility] Comment on above: Performed By: #### L [id number] ####Nailer Hand: JULI JONES ([phone])[facility] ([facility])[address] [place] [address] LEUKOCYTE ESTERASE PRESENCE IN URINE BY TEST STRIP 25 Devang/uL Abnormal Negative [facility] Comment on above: Performed By: #### L [id number] ####Nailer Hand: JULI JONES ([phone])[facility])[address] [place] [address] NITRITE PRESENCE IN URINE Negative Normal Negative [facility] Comment on above: Performed By: #### L [id number] ####Nailer Hand: JULI JONES ([phone])[facility])[address] [place] [address] pH (U) 6.5 [pH] Normal 5.0-8.0 [facility] Comment on above: Performed By: #### L [id number] ####Nailer Hand: JULI JONES ([phone])[facility] ([facility])[address] [place] [address] Protein (U) [Mass/Vol] 20 mg/dL Abnormal Negative [facility] Comment on above: Performed By: #### L [id number] ####Nailer Hand: JULI JONES ([phone])[facility])[address] [place] [address] RBC (#/HPF) IN URINE SEDIMENT 0-2 Normal 0-2 [facility] Comment on above: Performed By: #### L [id number] ####Nailer Hand: JULI JONES ([phone])[facility])[address] [place] [address] Specific gravity (U) [Rel density] 1.003 Low 1.005-1.03 0 [facility] Comment on above: Result Comment: HARRIET Mayfield COMMENTS:A specimen with <=10 WBC is not consistent with inflammation. This specimen will not reflex to a urine culture. Performed By: #### L [id number] ####Nailer Hand: JULI JONES ([phone])[facility] ([facility])[address] [place] [address] SQUAMOUS EPITHELIAL CELLS (#/HPF) IN URINE SEDIMENT 0-2 Normal 3-5 [facility] Comment on above: Performed By: #### L [id number] ####Nailer Hand: JULI JONES ([phone])[facility] ([facility])[address] [place] [address] UROBILINOGEN (MG/DL) IN URINE Normal Normal Normal (0-1) [facility] Comment on above: Performed By: #### L [id number] ####Nailer Hand: JULI JONES ([phone])[facility] ([facility])[address] [place] [address] WBC (LEUKOCYTE) (#/HPF) IN URINE SEDIMENT 0-2 Normal 0-5 [facility] Comment on above: Performed By: #### L [id number] ####Nailer Hand: JULI JONES ([phone])[facility] ([facility])[address] [place] [address] Comprehensive metabolic 1998 panelon 03-07-2025 Albumin [Mass/Vol] 3 g/dL Low 3.5 - 5.0 g/dL [facility] ALP [Catalytic activity/Vol] 55 U/L 40 - 150 U/L [facility] ALT [Catalytic activity/Vol] U/L BANNERF - 30 U/L [facility] Anion gap [Moles/Vol] 6 mmol/L 3 - 13 mmol/L [facility] AST [Catalytic activity/Vol] 26 U/L NINF - 34 U/L [facility] Bilirubin [Mass/Vol] 0.3 mg/dL NINF - 1.2 mg/dL [facility] Calcium [Mass/Vol] 8.7 mg/dL 8.4 - 10. 2 mg/dL [facility] Chloride [Moles/Vol] 92 mmol/L Low 98 - 10 7 mmol/L [facility] CO2 [Moles/Vol] 23 mmol/L 22 - 29 mmol/L [facility] Creatinine [Mass/Vol] 2.14 mg/dL High 0.57 - 1.11 mg/dL [facility] GFR/1.73 sq M.predicted (S/P/Bld) [Vol rate/Area] 26.3 mL/min Low - PINF [facility] Comment on above: Calculation based on the Chronic Kidney Disease Epidemiology Collaboration (CKD-EPI) equation refit without adjustment for race Glucose [Mass/Vol] 92 mg/dL 74 - 100 mg/dL [facility] Interpretation and review of laboratory results Abnormal [facility] Potassium [Moles/Vol] 4.3 mmol/L 3.5 - 5.1 mmol/L [facility] Comment on above: Plasma potassium batsheva ues may be up to 0.5 mmol/L lower than serum values. Protein [Mass/Vol] 6.2 g/dL Low 6.4 - 8.3 g/dL [facility] Sodium [Moles/Vol] 121 mmol/L Low 136 - 145 mmol/L [facility] Urea nitrogen [Mass/Vol] 20 mg/dL 9 - 23 mg/dL [facility] ECG 12-LEADon 03-07-2025 ECG 12-LEAD IMPRESSION: Sinus rhythm normal axis and intervals Anterior T wave abnormality seen in previous EKG has resolved. Electronically Signed On 03-07-2025 05:36:29 EDT by Hever Duncan Normal [facility] FREE T4on 03-07-2025 Free T4 [Mass/Vol] 1.05 ng/dL Normal 0.70-1.48 [facility] Comment on above: Performed By: #### L [id number] ####Nailer Hand: JULI JONES ([phone])[address] Free T4 [Mass/Vol]on 025 Free T4 Dialysis [Mass/Vol] 1.05 ng/dL 0.70 - 1.48 ng/dL [facility] Interpretation and review of laboratory results Normal [facility] Laboratory - Chemistry and C hemistry - challengeon 03-07-2025 TSH Qn 5.6 m[IU]/L High [facility] No Panel InformationOrdered By: Hever Duncan on 03-07-2025 P [place] 12 degrees [facility] [employer] Work Phone: CA Interval 166 ms [facility] [employer] Work Phone: QRS [place] 16 degrees [employer] Work Phone: QRSD Interval 98 ms [facility] Work [facility]: QT Interval 414 ms [facility] Work Phone: QTC Interval 446 ms [facility] [employer] Work Phone: T Wave [place] 14 degrees [facility] Work Phone: [employer] Work Phone: No Panel Informationon 03-07 Sinus rhythm normal axis and intervals Anterior T wave abnormality seen in previous EKG has resolved. Electronically Signed On 03-07-2025 05:36:29 EDT by Hever Jain D O - 03/07/2025 IMPRESSION: Sinus rhythm normal axis and intervals Anterior T wave abnormality seen in previous EKG has resolved. Electronically Signed On 03-07-2025 05:36:29 EDT by Hever Duncan [facility] Progress Noteon 03-07-2025 Progress Note Normal [facility] Progress Note Normal [facility] TSH Qnon 03-07-2025 Interpretation and review of laboratory results Abnormal [facility] Urinalysis complete panel (U )Ordered By: Vu Dewitt on 03-07-2025 Bacteria LM.HPF (Urine sed) [#/Area] Negative Negative /HPF [facility] Bilirubin Ql (U) Negative Negative mg/dL [facility] Clarity (U) Clear Clear [facility] Color (U) Colorless Lt. Yellow [facility] Epithelial cells.squamous LM.HPF (Urine sed) [#/Area] 0-2 [facility] Glucose Ql (U) Normal Normal (<70) mg/dL [facility] Hemoglobin Ql (U) Negative Negative mg/dL [facility] Hyaline casts Auto (Urine sed) [#/Area] Negative Negative /LPF [facility] Interpretation and review of laboratory results Abnormal [facility] Ketones (U) [Mass/Vol] Negative Negat jayne mg/dL [facility] Leukocyte esterase Test strip Ql (U) 25 Abnormal Negative Devang/uL [facility] Nitrite Ql (U) Negative Negative [facility] pH (U) 6.5 [pH] 5.0 - 8.0 pH [facility] Protein (U) [Mass/Vol] 20 mg/dL Abnormal Negative [facility] RBC LM.HPF (Urine sed) [#/Area] 0-2 [facility] Specific gravity (U) [Rel density] 1.003 Low 1.005 - 1.030 [facility] Urobilinogen (U) [Mass/Vol] Normal Normal (0-1) mg/dL [facility] WBC LM.HPF (Urine sed) [#/Area] 0-2 [facility] A specimen with <=10 WBC is not consistent with inflammation. This specimen will not reflex to a urine culture. [facility] Vital signsOrdered By: Yadi Duncan on 03-07-2025 Heart rate 70 /min bpm [facility] Work Phone: CBC W Auto Differential pane l (Bld)on 03-06-2025 Basophils (Bld) [#/Vol] 0 10*3/uL 0.0 - 0.2 10*3/uL [facility] Basophils/100 WBC (Bld) 0.3 % 0.0 - 2.0 % [facility] Eosinophils (Bld) [#/Vol] 0.1 10*3/uL 0.0 - 0.5 10*3/uL [facility] Eosinophils/100 WBC (Bld) 1.4 % 0.0 - 6.0 % [facility] Erythrocyte distribution width (RBC) [Ratio] 14.2 % 11.5 - 15.0 % [facility] Hematocrit (Bld) [Volume fraction] 25.3 % Low 35.0 - 47.0 % [facility] Hemoglobin (Bld) [Mass/Vol] 8.8 g/dL Low 11.7 - 16.0 g/dL [facility] Immature granulocytes (Bld) [#/Vol] 0 10*3/uL NINF - 0.1 10*3/uL [facility] Immature granulocytes/100 WBC (Bld) 0.4 % 0.0 - 2.0 % [facility] Interpretation and review of laboratory results Abnormal [facility] Lymphocytes (Bld) [#/Vol] 2.1 10*3/uL 1.0 - 4.3 10*3/uL [facility] Lymphocytes/100 WBC (Bld) 26.2 % 15.0 - 45.0 % [facility] MCH (RBC) [Entitic mass] 32.1 pg 26.0 - 34.0 pg [facility] MCHC (RBC) [Mass/Vol] 34.8 % 30.5 - 36.0 % [facility] MCV (RBC) [Entitic vol] 92.3 fL 77.0 - 99.0 fL [facility] Monocytes (Bld) [#/Vol] 1.1 10*3/uL High 0.0 - 0.9 10*3/uL [facility] Monocytes/100 WBC (Bld) 13.9 % High 5.0 - 13.0 % [facility] Neutrophils (Bld) [#/Vol] 4.6 10*3/uL 1.8 - 7.5 10*3/uL [facility] Neutrophils/100 WBC (Bld) 57.8 % 38.0 - 82.0 % [facility] Nucleated RBC/100 WBC (Bld) [Ratio] 0 % [facility] Platelet mean volume (Bld) [Entitic vol] 9.4 fL 9.0 - 12.7 fL [facility] Platelets (Bld) [#/Vol] 211 10*3/uL 140 - 440 10*3/uL [facility] RBC (Bld) [#/Vol] 2.74 10*6/uL Low 3.80 - 5.20 10*6/uL [facility] WBC (Bld) [#/Vol] 8 10*3/uL 3.6 - 10.7 10*3/uL [facility] CBC WITH AUTO DIFFERENTIALon 03-06-2025 Basophils (Bld) [#/Vol] 0.0 10*3/uL Normal 0.0-0.2 [facility] Comment on above: Performed By: #### L [id number] ####Nailer Hand: JULI JONES ([id number])[address] Basophils/100 WBC (Bld) 0.3 % Normal 0.0-2.0 [facility] Comment on above: Performed By: #### L [id number] ####Nailer Hand: JULI JONES ([id number])[facility] [address] Eosinophils (Bld) [#/Vol] 0.1 10*3/uL Normal 0.0-0.5 [facility] Comment on above: Performed By: #### L [id number] ####Nailer Hand: JULI JONES ([id number])[facility])[address] [place] [address] Eosinophils/100 WBC (Bld) 1.4 % Normal 0.0-6.0 [facility] Comment on above: Performed By: #### L [id number] ####Nailer Hand: JULI JONES ([id number])[address] Erythrocyte distribution width (RBC) [Ratio] 14.2 % Normal 11.5-15.0 [facility] Comment on above: Performed By: #### L [id number] ####Nailer Hand: JULI JONES ([id number])[address] Hematocrit (Bld) [Volume fraction] 25.3 % Low 35.0-47.0 [facility] Comment on above: Performed By: #### L [id number] ####Nailer Hand: JULI JONES ([id number])[address] Hemoglobin (Bld) [Mass/Vol] 8.8 g/dL Low 11.7-16.0 [facility] Comment on above: Performed By: #### L [id number] ####Nailer Hand: JULI JONES ([id number])[address] IMMATURE GRANS % 0.4 % Normal 0.0-2.0 [facility] Comment on above: Performed By: #### L [id number] ####Nailer Hand: JULI JONES ([phone])[address] IMMATURE GRANS ABSOLUTE 0.0 10*3/uL Normal <0.1 [facility] Comment on above: Performed By: #### L [id number] ####Nailer Hand: JULI JONES ([phone])[facility])[address] [place] [address] Lymphocytes (Bld) [#/Vol] 2.1 10*3/uL Normal 1.0-4.3 [facility] Comment on above: Performed By: #### L [id number] ####Nailer Hand: JULI JONES ([id number])[facility])[address] [place] [address] Lymphocytes/100 WBC (Bld) 26.2 % Normal 15.0-45.0 [facility] Comment on above: Performed By: #### L [id number] ####Nailer Hand: JULI JONES ([phone])[facility])[address] [place] [address] MCH (RBC) [Entitic mass] 32.1 pg Normal 26.0-34.0 [facility] Comment on above: Performed By: #### L [id number] ####Nailer Hand: JULI JONES ([phone])[facility])[address] [place] [address] MCHC 34.8 % Normal 30.5-36.0 [facility] Comment on above: Performed By: #### L [id number] ####Nailer Hand: JULI JONES ([phone])[facility])[address] [place] [address] MCV (RBC) [Entitic vol] 92.3 fL Normal 77.0-99.0 [facility] Comment on above: Performed By: #### L [id number] ####Nailer Hand: JULI JONES ([phone])[facility])[address] [place] [address] Monocytes (Bld) [#/Vol] 1.1 10*3/uL High 0.0-0.9 [facility] Comment on above: Performed By: #### L [id number] ####Nailer Hand: JULI JONES ([id number])[facility] ([facility])[address] [place] [address] Monocytes/100 WBC (Bld) 13.9 % High 5.0-13.0 [facility] Comment on above: Performed By: #### L [id number] ####Nailer Hand: JULI JONES ([phone])[facility] ([facility])[address] [place] [address] NEUTROPHILS ABSOLUTE 4.6 10*3/uL Normal 1.8-7.5 [facility] Comment on above: Performed By: #### L [id number] ####Nailer Hand: JULI JONES ([phone])[facility])[address] [place] [address] Neutrophils/100 WBC (Bld) 57.8 % Normal 38.0-82.0 [facility] Comment on above: Performed By: #### L [id number] ####Nailer Hand: JULI JONES ([id number])[facility] ([facility])[address] [place] [address] NRBC 0.0 /100 WBCs Normal 0.0-2.0 [facility] Comment on above: Performed By: #### L [id number] ####Nailer Hand: JULI JONES ([phone])[facility])[address] [place] [address] Platelet mean volume (Bld) [Entitic vol] 9.4 fL Normal 9.0-12.7 [facility] Comment on above: Performed By: #### L [id number] ####Nailer Hand: JULI JONES ([phone])[facility] ([facility])[address] [place] [address] [place] Platelets (Bld) [#/Vol] 211 10*3/uL Normal 140-440 [facility] Comment on above: Performed By: #### L [id number] ####Nailer Hand: JULI JONES ([phone])[facility])[address] [place] [address] RBC (Bld) [#/Vol] 2.74 10*6/uL Low 3.80-5.20 [facility] Comment on above: Performed By: #### L [id number] ####Nailer Hand: JULI JONES ([phone])[facility])[address] [place] [address] WBC (Bld) [#/Vol] 8.0 10*3/uL Normal 3.6-10.7 [facility] Comment on above: Performed By: #### L [id number] ####Nailer Hand: JULI JONES ([id number])[facility])[address] [place] [address] COMPREHENSIVE METABOLIC PANE Nestor 03-06-2025 Albumin [Mass/Vol] 3.0 g/dL Low 3.5-5.0 [facility] Comment on above: Performed By: #### L [id number], LAB17 ####Nailer Hand: JULI JONES ([id number])[facility] ([facility])[address] [place] [address] ALP [Catalytic activity/Vol] 55 U/L Normal 40-150 [facility] Comment on above: Performed By: #### L [id number], LAB17 ####Nailer Hand: JULI JONES ([id number])[facility])[address] [place] [address] ALT [Catalytic activity/Vol] U/L Normal <30 [facility] Comment on above: Performed By: #### L [id number], LAB17 ####Nailer Hand: JULI JONES ([phone])[facility])[address] [place] [address] Anion gap [Moles/Vol] 6 mmol/L Normal 3-13 [facility] Comment on above: Performed By: #### L [id number], LAB17 ####Nailer Hand: JULI JONES ([id number])[facility])[address] [place] [address] AST [Catalytic activity/Vol] 26 U/L Normal <34 [facility] Comment on above: Performed By: #### L [id number], LAB17 ####Nailer Hand: JULI JONES ([phone])[facility])[address] [place] [address] Bilirubin [Mass/Vol] 0.3 mg/dL Normal <1.2 [facility] Comment on above: Performed By: #### L [id number], LAB17 ####Nailer Hand: JULI JONES ([phone])[facility])[address] [place] [address] Calcium [Mass/Vol] 8.7 mg/dL Normal 8.4-10.2 [facility] Comment on above: Performed By: #### L [id number], LAB17 ####Nailer Hand: JULI JONES ([id number])[facility])[address] [place] [address] Chloride [Moles/Vol] 92 mmol/L Low 98-107 [facility] Comment on above: Performed By: #### L [id number], LAB17 ####Nailer Hand: JULI JONES ([phone])[facility])[address] [place] [address] CO2 [Moles/Vol] 23 mmol/L Normal 22-29 [facility] Comment on above: Performed By: #### L [id number], LAB17 ####Nailer Hand: JULI JONES ([phone])[facility])[address] [place] [address] Creatinine [Mass/Vol] 2.14 mg/dL High 0.57-1.11 [facility] Comment on above: Performed By: #### L [id number], LAB17 ####Nailer Hand: JULI JONES ([phone])[facility])[address] [place] [address] GLOMERULAR FILTRATION RATE ML/MIN/1.73 SQ M.PREDICTED 26.3 mL/min/1.73m*2 Low >60.0 [facility] Comment on above: Result Comment: Calc ulation based on the Chronic Kidney Disease Epidemiology Collaboration (CKD-EPI) equation refit without adjustment for race Performed By: #### L AB129, LAB17 ####Nailer Hand: JULI JONES ([phone])[facility])[address] [place] [address] Glucose [Mass/Vol] 92 mg/dL Normal 74-100 [facility] Comment on above: Performed By: #### L [id number], LAB17 ####Nailer Hand: JULI JONES ([id number])[facility])[address] [place] [address] Potassium [Moles/Vol] 4.3 mmol/L Normal 3.5-5.1 [facility] Comment on above: Result Comment: [facility] potassium values may be up to 0.5 mmol/L lower than serum values. Performed By: #### L AB129, LAB17 ####Nailer Hand: JULI JONES ([phone])[facility])[address] [place] [address] Protein [Mass/Vol] 6.2 g/dL Low 6.4-8.3 [facility] Comment on above: Performed By: #### L [id number], LAB17 ####Nailer Hand: JULI JONES ([phone])[facility])[address] [place] [address] Sodium [Moles/Vol] 121 mmol/L Low 136-145 [facility] Comment on above: Performed By: #### L [id number], LAB17 ####Nailer Hand: JULI JONES ([id number])[facility])[address] [place] [address] Urea nitrogen [Mass/Vol] 20 mg/dL Normal 9-23 [facility] Comment on above: Performed By: #### L [id number], LAB17 ####Nailer Hand: JULI JONES ([phone])[facility])[address] [place] [address] ED Nursing Noteon 03-06-2025 ED Nursing Note Called [facility] as they have not arrived for 0900 ETA. Dispatch states they will be here in 10 minutes. Normal [facility] ED Nursing Note Upon arrival pt brian n to report that she was anxious and needed meds for anxiety "like klonopin." Normal [facility] ED Provider Noteon ED Provider Note Normal [facility] ED Provider Note Normal [facility] THYROID STIMULATING HORMONEo n 03-06-2025 THYROID STIMULATING HORMONE 5.60 uIU/mL High 0.35-4.94 [facility] Comment on above: Performed By: #### L AB129, LAB17 ####Nailer Hand: JULI JONES ([phone])[facility] ([address] XR Chest Single viewon 03-06 1. No acute finding. Report Dictated on Electronically Signed By: Dinesh Chacon MD Electronically Signed Date/Time: 03/06/2025 11:12 PM EDT [facility] Patient Name: JESSY WEN : 1965 Exam Date/Time: 03/06/2025 23:02 Procedure: XR CHEST 1 VIEW Ordering Provider: TALBOT SHAYA Reason For Exam: weakness SINGLE FRONTAL VIEW OF THE CHEST CLINICAL INDICATION: weakness TECHNIQUE: Single frontal view of the chest COMPARISON: 11/15/2024 FINDINGS: Lungs are show no significant consolidation. No pleural effusion or pneumothorax. No vascular congestion. Heart size mildly enlarged. [facility] Dinesh Chacon MD - 03/06/2025 Patient Name: [...] Electronically Signed Date/Time: 03/06/2025 11:12 PM EDT [facility] Radiology Study observation (narrative) [facility] XR Chest Single viewOrdered By: Dinesh Chacon on 03-06-2025 [facility] [employer] Work Phone: XR Elbow - left 3 Viewson Negative plain film examination of the left elbow. Report Dictated on Electronically Signed By: Mary Nielsen MD Electronically Signed Date/Time: 03/06/2025 6:47 AM EDT [facility] [employer] SYSTEM Patient Name: JESSY WEN : 1965 [...] no joint effusion or radiopaque foreign body. [facility] Mary Nielsen M D - 03/06/2025 [...] Signed Date/Time: 03/06/2025 6:47 AM EDT [facility] Radiology Study observation (narrative) [facility] XR Knee - left 3 Viewson Poorly positioned study with no fracture identified. Recommend repeat views if symptoms persist. Severe osteoarthritis. Report Dictated on Electronically Signed By: Mary Nielsen MD Electronically Signed Date/Time: 03/06/2025 6:46 AM EDT [facility] Patient Name: JESSY WEN : 1965 [...] with joint space loss and large osteophytes. [facility] Mary Nielsen M D - 03/06/2025 [...] Signed Date/Time: 03/06/2025 6:46 AM EDT [facility] Radiology Study observation (narrative) [facility] XR Pelvis 1 or 2 Viewson No fracture or dislocation. Report Dictated on Electronically Signed By: Mary Nielsen MD Electronically Signed Date/Time: 03/06/2025 6:44 AM EDT [facility] Patient Name: JESSY WEN : 1965 [...] lumbar spine and lumbosacral junction. L5 laminectomy. [facility] Mary Nielsen M D - 03/06/2025 [...] Electronically Signed Date/Time: 03/06/2025 6:44 AM EDT [facility] [employer] Radiology Study observation (narrative) [facility] XR Pelvis 1 or 2 ViewsOrdere d By: Mary Nielsen on 03-06-2025 [employer] Work Phone: 00on 03-05-2025 36 Jeremi with home care notified of Verbal okay Normal [facility] 36 Ok for verbal order Normal [facility] 36on 03-04-2025 36 Normal [facility] Anion gap in Serum or Plasma Ordered By: Mary Van on 02-25-2025 Anion gap [Moles/Vol] 12 mmol/L 5-15 [facility] BUN/creatinine ratioOrdered By: Mary Van on 02-25-2025 Urea nitrogen/Creatinine [Mass ratio] 9.2 mg/mg Low 10-20 [facility] Carbon dioxide, total [Moles /volume] in Central venous bloodOrdered By: Mary Van on 02-25-2025 CO2 [Moles/Vol] 19.9 mmol/L Low 21.0-32.0 [facility] Chloride assayOrdered By: Robyn Van on 02-25-2025 Chloride [Moles/Vol] 93 mmol/L Low 98-108 [facility] Glomerular filtration rate ( GFR) estimation/1.73 sq m using serum, plasma, or whole bOrdered By: Mary Van on 02-25-2025 GFR/1.73 sq M.predicted among non-blacks MDRD (S/P/Bld) [Vol rate/Area] 21 mL/min/{1.73_m2} Low >60 [facility] Comment on above: mL/min/1.73m2 CKD-EP I Creatinine Equation (2020) Potassium measurement (mass/ volume)Ordered By: Mary Van on 02-25-2025 Potassium (Unsp spec) [Mass/Vol] 4.1 mmol/L 3.3-5.1 [facility] Comment on above: Hemolysis present, R esults could be affected. Serum creatinine measurement (mass/volume)Ordered By: Mary Van on 02-25-2025 Creatinine [Mass/Vol] 2.60 mg/dL High 0.70-1.20 [facility] Serum glucose measurement (m ass/volume)Ordered By: Mary Van on 02-25-2025 Glucose [Mass/Vol] 79 mg/dL 70-99 [facility] Serum or plasma calcium niko urement (mass/volume)Ordered By: Mary Van on 02-25-2025 Calcium [Mass/Vol] 8.4 mg/dL 7.6-11.0 [facility] Serum or plasma urea nitroge n measurement (mass/volume)Ordered By: Mary Van on 02-25-2025 Urea nitrogen [Mass/Vol] 24 mg/dL High 4-19 [facility] Sodium levelOrdered By: Matthew Van on 02-25-2025 Sodium [Moles/Vol] 125 mmol/L Low 133-145 [facility] Anion gap in Serum or Plasma Ordered By: Mary Van on 02-18-2025 Anion gap [Moles/Vol] 11 mmol/L 5-15 [facility] BUN/creatinine ratioOrdered By: Mary Van on 02-18-2025 Urea nitrogen/Creatinine [Mass ratio] 9.0 mg/mg Low 10-20 [facility] Bilirubin Test strip Ql (U)O rdered By: Mary Van on 02-18-2025 Bilirubin Ql (U) Negative Negative [facility] Carbon dioxide, total [Moles /volume] in Central venous bloodOrdered By: Mary Van on 02-18-2025 CO2 [Moles/Vol] 24.1 mmol/L 21.0-32.0 [facility] Chloride assayOrdered By: Robyn Van on 02-18-2025 Chloride [Moles/Vol] 95 mmol/L Low 98-108 [facility] Glomerular filtration rate ( GFR) estimation/1.73 sq m using serum, plasma, or whole bOrdered By: Mary Van on 02-18-2025 GFR/1.73 sq M.predicted among non-blacks MDRD (S/P/Bld) [Vol rate/Area] 21 mL/min/{1.73_m2} Low >60 [facility] Comment on above: mL/min/1.73m2 CKD-EP I Creatinine Equation (2020) Ketones Test strip Ql (U)Ord ered By: Mary Van on 02-18-2025 Ketones Ql (U) Negative Negative [facility] Microscopic analysis of urin e for red blood cells (RBC)Ordered By: Mary Vna on 02-18-2025 Microscopic analysis of urine for red blood cells (RBC) 0-5 SEEN /hpf 0-5 [facility] Mucus LM Ql (Urine sed)Order ed By: Mary Van on 02-18-2025 Mucus Ql (Urine sed) 0 SEEN /hpf [facility] Nitrite Test strip Ql (U)Ord ered By: Mary Van on 02-18-2025 Nitrite Ql (U) Negative Negative [facility] Osmolality urOrdered By: Morales Van on 02-18-2025 Osmolality (U) [Osmolality] 108 mOsm/KG >50 [facility] Comment on above: Normal Urine Referen ce Ranges Random: 50 - 1200 mOsm/kg H20 depending on fluid intake Random: >850 mOsm/kg after 12 hour fluid restriction 24 hour: ~300 - 900 mOsm/kg H2O Potassium measurement (mass/ volume)Ordered By: Mary Van on 02-18-2025 Potassium (Unsp spec) [Mass/Vol] 4.0 mmol/L 3.3-5.1 [facility] Protein Test strip Ql (U)Ord ered By: Mary Van on 02-18-2025 Protein Ql (U) 30 mg/dl High Negative [facility] Serum creatinine measurement (mass/volume)Ordered By: Mary Van on 02-18-2025 Creatinine [Mass/Vol] 2.61 mg/dL High 0.70-1.20 [facility] Serum glucose measurement (m ass/volume)Ordered By: Mary Van on 02-18-2025 Glucose [Mass/Vol] 83 mg/dL 70-99 [facility] Serum or plasma albumin niko urement (mass/volume)Ordered By: Mary Van on 02-18-2025 Albumin [Mass/Vol] 3.5 g/dL 3.5-5.0 [facility] Serum or plasma calcium niko urement (mass/volume)Ordered By: Mary Van on 02-18-2025 Calcium [Mass/Vol] 8.9 mg/dL 7.6-11.0 [facility] Serum or plasma urea nitroge n measurement (mass/volume)Ordered By: Mary Van on 02-18-2025 Urea nitrogen [Mass/Vol] 24 mg/dL High 4-19 [facility] Sodium levelOrdered By: Matthew Van on 02-18-2025 Sodium [Moles/Vol] 129 mmol/L Low 133-145 [facility] Squamous epithelial cells de tection in urine sediment by light microscopyOrdered By: Mary Van on 02-18-2025 Epithelial cells.squamous LM Ql (Urine sed) 0-5 SEEN /hpf 5-10 [facility] Transitional cells detection in urine sediment by light microscopyOrdered By: Mary Van on 02-18-2025 Transitional cells LM Ql (Urine sed) 0-5 SEEN /hpf 0-5 [facility] Urine clarityOrdered By: Morales Van on 02-18-2025 Clarity (U) Clear Clear [facility] Urine color determinationOrd ered By: Mary Van on 02-18-2025 Color (U) Yellow Yellow [facility] Urine cultureOrdered By: Morales Van on 02-18-2025 Bacteria identified Cx Nom (U) Staphylococcus aureus Abnormal [facility] Bacteria identified Cx Nom (U) Positive Abnormal [facility] Urine glucose detectionOrder ed By: Mary Van on 02-18-2025 Glucose Ql (U) Normal mg/dl Normal [facility] Urine leukocyte esterase det ection by dipstickOrdered By: Mary Van on 02-18-2025 Leukocyte esterase Test strip Ql (U) 500 /ul High Negative [facility] Urine pHOrdered By: Mary echols on 02-18-2025 pH (U) 7.0 [pH] 5.0 - 8.0 [facility] Urine sediment bacteria coun t by microscopy (number/high power field)Ordered By: Mary Van on 02-18-2025 Bacteria LM.HPF (Urine sed) [#/Area] 0 /[HPF] None Seen [facility] Urine specific gravity measu rementOrdered By: Mary Van on 02-18-2025 Specific gravity (U) [Rel density] 1.005 1.002-1.03 0 [facility] Urine urobilinogen measureme ntOrdered By: Mary Van on 02-18-2025 Urobilinogen Ql (U) Normal mg/dl Normal [facility] White blood cell countOrdere d By: Mary Van on 02-18-2025 White blood cell count 25-50 SEEN /hpf 0-5 [facility] Anion gap in Serum or Plasma Ordered By: Mary Van on 2025 Anion gap [Moles/Vol] 12 mmol/L 5-15 [facility] BUN/creatinine ratioOrdered By: Mary Van on 2025 Urea nitrogen/Creatinine [Mass ratio] 7.5 mg/mg Low 10-20 [facility] Carbon dioxide, total [Moles /volume] in Central venous bloodOrdered By: Mary Van on 2025 CO2 [Moles/Vol] 24.2 mmol/L 21.0-32.0 [facility] Chloride assayOrdered By: Robyn Van on 2025 Chloride [Moles/Vol] 88 mmol/L Low 98-108 [facility] Glomerular filtration rate ( GFR) estimation/1.73 sq m using serum, plasma, or whole bOrdered By: Mary Van on 2025 GFR/1.73 sq M.predicted among non-blacks MDRD (S/P/Bld) [Vol rate/Area] 20 mL/min/{1.73_m2} Low >60 [facility] Comment on above: mL/min/1.73m2 CKD-EP I Creatinine Equation (2020) Potassium measurement (mass/ volume)Ordered By: Mary Van on 2025 Potassium (Unsp spec) [Mass/Vol] 3.8 mmol/L 3.3-5.1 [facility] Serum creatinine measurement (mass/volume)Ordered By: Mary Van on 2025 Creatinine [Mass/Vol] 2.64 mg/dL High 0.70-1.20 [facility] Serum glucose measurement (m ass/volume)Ordered By: Mary Van on 2025 Glucose [Mass/Vol] 90 mg/dL 70-99 [facility] Serum or plasma calcium niko urement (mass/volume)Ordered By: Mary Van on 2025 Calcium [Mass/Vol] 8.8 mg/dL 7.6-11.0 [facility] Serum or plasma urea nitroge n measurement (mass/volume)Ordered By: Mary Van on 2025 Urea nitrogen [Mass/Vol] 20 mg/dL High 4-19 [facility] Sodium levelOrdered By: Matthew Van on 2025 Sodium [Moles/Vol] 125 mmol/L Low 133-145 [facility] TSH DL <= 0.005 mIU/L QnOrde red By: Mary Van on 02-08-2025 TSH Qn 5.760 uIU/mL High 0.300-4.20 0 [facility] Anion gap in Serum or Plasma Ordered By: Mary Van on 02-04-2025 Anion gap [Moles/Vol] 11 mmol/L 5-15 [facility] BUN/creatinine ratioOrdered By: Mary Van on 02-04-2025 Urea nitrogen/Creatinine [Mass ratio] 9.8 mg/mg Low 10-20 [facility] Carbon dioxide, total [Moles /volume] in Central venous bloodOrdered By: Mary Van on 02-04-2025 CO2 [Moles/Vol] 24.4 mmol/L 21.0-32.0 [facility] Chloride assayOrdered By: Robyn Van on 02-04-2025 Chloride [Moles/Vol] 89 mmol/L Low 98-108 [facility] Glomerular filtration rate ( GFR) estimation/1.73 sq m using serum, plasma, or whole bOrdered By: Mary Van on 02-04-2025 GFR/1.73 sq M.predicted among non-blacks MDRD (S/P/Bld) [Vol rate/Area] 23 mL/min/{1.73_m2} Low >60 [facility] Comment on above: mL/min/1.73m2 CKD-EP I Creatinine Equation (2020) Potassium measurement (mass/ volume)Ordered By: Mary Van on 02-04-2025 Potassium (Unsp spec) [Mass/Vol] 3.7 mmol/L 3.3-5.1 [facility] Serum creatinine measurement (mass/volume)Ordered By: Mary Van on 02-04-2025 Creatinine [Mass/Vol] 2.41 mg/dL High 0.70-1.20 [facility] Serum glucose measurement (m ass/volume)Ordered By: Mary Van on 02-04-2025 Glucose [Mass/Vol] 90 mg/dL 70-99 [facility] Serum or plasma calcium niko urement (mass/volume)Ordered By: Mary Van on 02-04-2025 Calcium [Mass/Vol] 8.4 mg/dL 7.6-11.0 [facility] Serum or plasma urea nitroge n measurement (mass/volume)Ordered By: Mary Van on 02-04-2025 Urea nitrogen [Mass/Vol] 24 mg/dL High 4-19 [facility] Sodium levelOrdered By: Matthew Van on 02-04-2025 Sodium [Moles/Vol] 124 mmol/L Low 133-145 [facility] Anion gap in Serum or Plasma Ordered By: Mary Van on 01-28-2025 Anion gap [Moles/Vol] 12 mmol/L 5-15 [facility] BUN/creatinine ratioOrdered By: Mary Van on 01-28-2025 Urea nitrogen/Creatinine [Mass ratio] 9.9 mg/mg Low 10-20 [facility] Carbon dioxide, total [Moles /volume] in Central venous bloodOrdered By: Mary Van on 01-28-2025 CO2 [Moles/Vol] 21.5 mmol/L 21.0-32.0 [facility] Chloride assayOrdered By: Robyn Van on 01-28-2025 Chloride [Moles/Vol] 91 mmol/L Low 98-108 [facility] Glomerular filtration rate ( GFR) estimation/1.73 sq m using serum, plasma, or whole bOrdered By: Mary Van on 01-28-2025 GFR/1.73 sq M.predicted among non-blacks MDRD (S/P/Bld) [Vol rate/Area] 22 mL/min/{1.73_m2} Low >60 [facility] Comment on above: mL/min/1.73m2 CKD-EP I Creatinine Equation (2020) Potassium measurement (mass/ volume)Ordered By: Mary Van on 01-28-2025 Potassium (Unsp spec) [Mass/Vol] 3.7 mmol/L 3.3-5.1 [facility] Serum creatinine measurement (mass/volume)Ordered By: Mary Van on 01-28-2025 Creatinine [Mass/Vol] 2.53 mg/dL High 0.70-1.20 [facility] Serum glucose measurement (m ass/volume)Ordered By: aMry Van on 01-28-2025 Glucose [Mass/Vol] 92 mg/dL 70-99 [facility] Serum or plasma calcium niko urement (mass/volume)Ordered By: Mary Van on 01-28-2025 Calcium [Mass/Vol] 8.8 mg/dL 7.6-11.0 [facility] Serum or plasma urea nitroge n measurement (mass/volume)Ordered By: Mary Van on 01-28-2025 Urea nitrogen [Mass/Vol] 25 mg/dL High 4-19 [facility] Sodium levelOrdered By: Matthew Van on 01-28-2025 Sodium [Moles/Vol] 125 mmol/L Low 133-145 [facility] Anion gap in Serum or Plasma Ordered By: Mary Van on 01-21-2025 Anion gap [Moles/Vol] 11 mmol/L 5-15 [facility] BUN/creatinine ratioOrdered By: Mary Van on 01-21-2025 Urea nitrogen/Creatinine [Mass ratio] 12.1 mg/mg 10-20 [facility] Bilirubin, totalOrdered By: Mary Van on 01-21-2025 Bilirubin [Mass/Vol] 0.19 mg/dL 0.00-1.30 [facility] Carbon dioxide, total [Moles /volume] in Central venous bloodOrdered By: Mary Van on 01-21-2025 CO2 [Moles/Vol] 23.3 mmol/L 21.0-32.0 [facility] Chloride assayOrdered By: Robyn Van on 01-21-2025 Chloride [Moles/Vol] 94 mmol/L Low 98-108 [facility] Erythrocyte distribution wid th ratioOrdered By: Mary Van on 01-21-2025 Erythrocyte distribution width (RBC) [Ratio] 16.6 % High 11.6-14.6 [facility] Erythrocyte distribution wid th standard deviationOrdered By: Mary Van on 01-21-2025 Erythrocyte distribution width (RBC) [Ratio] 59.2 fl High 35.1-43.9 [facility] Glomerular filtration rate ( GFR) estimation/1.73 sq m using serum, plasma, or whole bOrdered By: Mary Van on 01-21-2025 GFR/1.73 sq M.predicted among non-blacks MDRD (S/P/Bld) [Vol rate/Area] 20 mL/min/{1.73_m2} Low >60 [facility] Comment on above: mL/min/1.73m2 CKD-EP I Creatinine Equation (2020) Hematocrit Auto (Bld) [Volum e fraction]Ordered By: Mary Van on 01-21-2025 Hematocrit (Bld) [Volume fraction] 27.6 % Low 37-47 [facility] Hemoglobin measurementOrdere d By: Mary Van on 01-21-2025 Hemoglobin (Bld) [Mass/Vol] 8.9 g/dL Low 12.0-15.0 [facility] Laboratory - Chemistry and C hemistry - challengeOrdered By: Mary Van on 01-21-2025 AST [Catalytic activity/Vol] 14 U/L <32 [facility] MCV (mean corpuscular volume ) determinationOrdered By: Mary Van on 01-21-2025 MCV (RBC) [Entitic vol] 98.2 fL 81-99 [facility] Mean corpuscular hemoglobin (MCH) determinationOrdered By: Mary Van on 01-21-2025 MCH (RBC) [Entitic mass] 31.7 pg 27.0-32.0 [facility] Mean corpuscular hemoglobin concentration (MCHC) determinationOrdered By: Mary Van on 01-21-2025 MCHC (RBC) [Mass/Vol] 32.2 g/dL 32-36 [facility] Mean platelet volume determi nationOrdered By: Mary Van on 01-21-2025 Platelet mean volume (Bld) [Entitic vol] 9.4 fL 6.2-12.0 [facility] Platelet countOrdered By: oRbyn Van on 01-21-2025 Platelets (Bld) [#/Vol] 244 10*3/uL 150-450 [facility] Potassium measurement (mass/ volume)Ordered By: Mary Van on 01-21-2025 Potassium (Unsp spec) [Mass/Vol] 4.2 mmol/L 3.3-5.1 [facility] RBC Auto (Bld) [#/Vol]Ordere d By: Mary Van on 01-21-2025 RBC (Bld) [#/Vol] 2.81 10*6/uL Low 4.2-5.4 [facility] Serum creatinine measurement (mass/volume)Ordered By: Mary Van on 01-21-2025 Creatinine [Mass/Vol] 2.67 mg/dL High 0.70-1.20 [facility] Serum globulin measurementOr dered By: Mary Van on 01-21-2025 Globulin (S) [Mass/Vol] 3.3 g/dL 2.2-4.2 [facility] Serum glucose measurement (m ass/volume)Ordered By: Mary Van on 01-21-2025 Glucose [Mass/Vol] 89 mg/dL 70-99 [facility] Serum or plasma alanine sage otransferase (ALT) measurementOrdered By: Mary Van on 01-21-2025 ALT [Catalytic activity/Vol] 5 U/L <35 [facility] Serum or plasma albumin niko urement (mass/volume)Ordered By: Mary Van on 01-21-2025 Albumin [Mass/Vol] 3.2 g/dL Low 3.5-5.0 [facility] Serum or plasma albumin/glob ulin mass ratioOrdered By: Mary Van on 01-21-2025 Albumin/Globulin [Mass ratio] 1.0 {ratio} 0.9-2.4 [facility] Serum or plasma alkaline roland sphatase measurementOrdered By: Mary Van on 01-21-2025 ALP [Catalytic activity/Vol] 58 U/L 35-104 [facility] Serum or plasma calcium niko urement (mass/volume)Ordered By: Mary Van on 01-21-2025 Calcium [Mass/Vol] 9.0 mg/dL 7.6-11.0 [facility] Serum or plasma urea nitroge n measurement (mass/volume)Ordered By: Mary Van on 01-21-2025 Urea nitrogen [Mass/Vol] 32 mg/dL High 4-19 [facility] Sodium levelOrdered By: Matthew Van on 01-21-2025 Sodium [Moles/Vol] 129 mmol/L Low 133-145 [facility] Total proteinOrdered By: Morales Van on 01-21-2025 Protein [Mass/Vol] 6.4 g/dL 5.9-8.4 [facility] White blood cell (WBC) count Ordered By: Mary Van on 01-21-2025 WBC (Bld) [#/Vol] 5.9 10*3/uL 4.4-11.0 [facility] Anion gap in Serum or Plasma Ordered By: Mary Van on 01-17-2025 Anion gap [Moles/Vol] 10 mmol/L 5-15 [facility] BUN/creatinine ratioOrdered By: Mary Van on 01-17-2025 Urea nitrogen/Creatinine [Mass ratio] 12.5 mg/mg 10-20 [facility] Bilirubin, totalOrdered By: Mary Van on 01-17-2025 Bilirubin [Mass/Vol] 0.22 mg/dL 0.00-1.30 [facility] Calculated very low density lipoprotein (VLDL) cholesterol measurementOrdered By: Mary Van on 01-17-2025 Calculated very low density lipoprotein (VLDL) cholesterol measurement 15 mg/dL 5-40 [facility] Carbon dioxide, total [Moles /volume] in Central venous bloodOrdered By: Mary Van on 01-17-2025 CO2 [Moles/Vol] 23.5 mmol/L 21.0-32.0 [facility] Chloride assayOrdered By: Robyn Van on 01-17-2025 Chloride [Moles/Vol] 101 mmol/L 98-108 [facility] Erythrocyte distribution wid th ratioOrdered By: Mary Van on 01-17-2025 Erythrocyte distribution width (RBC) [Ratio] 17.4 % High 11.6-14.6 [facility] Erythrocyte distribution wid th standard deviationOrdered By: Mary Van on 01-17-2025 Erythrocyte distribution width (RBC) [Ratio] 64.2 fl High 35.1-43.9 [facility] Glomerular filtration rate ( GFR) estimation/1.73 sq m using serum, plasma, or whole bOrdered By: Mary Van on 01-17-2025 GFR/1.73 sq M.predicted among non-blacks MDRD (S/P/Bld) [Vol rate/Area] 18 mL/min/{1.73_m2} Low >60 [facility] Comment on above: mL/min/1.73m2 CKD-EP I Creatinine Equation (2020) Hematocrit Auto (Bld) [Volum e fraction]Ordered By: Mary Van on 01-17-2025 Hematocrit (Bld) [Volume fraction] 26.6 % Low 37-47 [facility] Hemoglobin measurementOrdere d By: Mary Van on 01-17-2025 Hemoglobin (Bld) [Mass/Vol] 8.4 g/dL Low 12.0-15.0 [facility] LDL calc ser/plasOrdered By: Mary Van on 01-17-2025 Cholesterol in LDL [Mass/Vol] 63 mg/dL [facility] Comment on above: Ngkgkwdkip=578-210 m g/dL & Higher Lann=444 mg/dL or greater Laboratory - Chemistry and C hemistry - challengeOrdered By: Mary Van on 01-17-2025 AST [Catalytic activity/Vol] 16 U/L <32 [facility] MCV (mean corpuscular volume ) determinationOrdered By: Mary Van on 01-17-2025 MCV (RBC) [Entitic vol] 101.5 fL High 81-99 [facility] Magnesium measurement (mass/ volume)Ordered By: Mary Van on 01-17-2025 Magnesium (Unsp spec) [Mass/Vol] 2.5 mg/dL High 1.5-2.2 [facility] Mean corpuscular hemoglobin (MCH) determinationOrdered By: Mary Van on 01-17-2025 MCH (RBC) [Entitic mass] 32.1 pg High 27.0-32.0 [facility] Mean corpuscular hemoglobin concentration (MCHC) determinationOrdered By: Mary Van on 01-17-2025 MCHC (RBC) [Mass/Vol] 31.6 g/dL Low 32-36 [facility] Mean platelet volume determi nationOrdered By: Mary Van on 01-17-2025 Platelet mean volume (Bld) [Entitic vol] 9.4 fL 6.2-12.0 [facility] Platelet countOrdered By: Robyn Van on 01-17-2025 Platelets (Bld) [#/Vol] 227 10*3/uL 150-450 [facility] Potassium measurement (mass/ volume)Ordered By: Mary Van on 01-17-2025 Potassium (Unsp spec) [Mass/Vol] 4.4 mmol/L 3.3-5.1 [facility] RBC Auto (Bld) [#/Vol]Ordere d By: Mary Van on 01-17-2025 RBC (Bld) [#/Vol] 2.62 10*6/uL Low 4.2-5.4 [facility] Screening total cholesterol/ high density lipoprotein (HDL) cholesterol ratioOrdered By: Mary Van on 01-17-2025 Cholesterol.total/Chol esterol in HDL [Mass ratio] 3.12 {ratio} [facility] Serum creatinine measurement (mass/volume)Ordered By: Mary Van on 01-17-2025 Creatinine [Mass/Vol] 2.96 mg/dL High 0.70-1.20 [facility] Serum globulin measurementOr dered By: Mary Van on 01-17-2025 Globulin (S) [Mass/Vol] 3.3 g/dL 2.2-4.2 [facility] Serum glucose measurement (m ass/volume)Ordered By: Mary Van on 01-17-2025 Glucose [Mass/Vol] 84 mg/dL 70-99 [facility] Serum or plasma alanine sage otransferase (ALT) measurementOrdered By: Mary Van on 01-17-2025 ALT [Catalytic activity/Vol] 5 U/L <35 [facility] Serum or plasma albumin niko urement (mass/volume)Ordered By: Mary Van on 01-17-2025 Albumin [Mass/Vol] 2.9 g/dL Low 3.5-5.0 [facility] Serum or plasma albumin/glob ulin mass ratioOrdered By: Mary Van on 01-17-2025 Albumin/Globulin [Mass ratio] 0.9 {ratio} 0.9-2.4 [facility] Serum or plasma alkaline rolnad sphatase measurementOrdered By: Mary Van on 01-17-2025 ALP [Catalytic activity/Vol] 58 U/L 35-104 [facility] Serum or plasma calcium niko urement (mass/volume)Ordered By: Mary Van on 01-17-2025 Calcium [Mass/Vol] 9.0 mg/dL 7.6-11.0 [facility] Serum or plasma cholesterol in HDL measurement (mass/volume)Ordered By: Mary Van on 01-17-2025 Cholesterol in HDL [Mass/Vol] 37 mg/dL Low >40 [facility] Comment on above: National Cholesterol Education Program (NCEP) guidelines:<40 mg/dL: Low HDL-cholesterol (major risk factor for CHD)>= 60 mg/dL: High HDL-cholesterol (negative risk factor for CHD)HDL-cholesterol is affected by a number of factors, e.g. smoking, exercise, hormones, sex and age. Serum or plasma cholesterol measurement (mass/volume)Ordered By: Mary Van on 01-17-2025 Cholesterol [Mass/Vol] 115 mg/dL <201 [facility] Comment on above: Cholesterol level, D esirable <200 mg/dLBorderline high cholesterol 200-239 mg/dLHigh cholesterol >=240 mg/dLRecommendations of the NCEP Adult Treatment Panel for the following risk-cutoff thresholds for the [place] population. Serum or plasma urea nitroge n measurement (mass/volume)Ordered By: Mary Van on 01-17-2025 Urea nitrogen [Mass/Vol] 37 mg/dL High 4-19 [facility] Sodium levelOrdered By: Matthew Van on 01-17-2025 Sodium [Moles/Vol] 134 mmol/L 133-145 [facility] TSH DL <= 0.005 mIU/L QnOrde red By: Mary Van on 01-17-2025 TSH Qn 14.100 uIU/mL High 0.300-4.20 0 [facility] Total proteinOrdered By: Morales Van on 01-17-2025 Protein [Mass/Vol] 6.2 g/dL 5.9-8.4 [facility] Triglycerides measurementOrd ered By: Mary Van on 01-17-2025 Triglyceride [Mass/Vol] 75 mg/dL <199 [facility] Comment on above: The drugs N-Acetylcy steine and Metamizole may falsely depress this assay. Normal range: <150 mg/dLBorderline High: 150-199 mg/dLHigh: 200-499 mg/dLVery High: >500 mg/dL White blood cell (WBC) count Ordered By: Mary Van on 01-17-2025 WBC (Bld) [#/Vol] 5.3 10*3/uL 4.4-11.0 [facility] 36on 01-16-2025 36 Called patient [facility]. Its her assisted living facility. They stated she is still admitted. [facility] 36 Please schedule a ho spital follow-up. [facility] [id number] [id number] [facility] [id number] 01-15-2025 [id number] [facility] - [address] [facility] [id number] Patient/[facility] - Resume [facility] [phone] [facility] [id number] MAR & Discharge med list transmitted to [facility] via [facility] per TCC request. [facility] [phone] [facility] [phone] [facility] BASIC METABOLIC PANELon 060 Anion gap [Moles/Vol] 7 mmol/L Normal 3-13 [facility] Comment on above: Performed By: #### L AB15 ####Nailer Hand: JULI JONES ([phone])[facility] ([address] Calcium [Mass/Vol] 9.0 mg/dL Normal 8.4-10.2 [facility] Comment on above: Performed By: #### L AB15 ####Nailer Hand: JULI JONES ([phone])[facility])[address] [place] [address] Chloride [Moles/Vol] 106 mmol/L Normal 98-107 [facility] Comment on above: Performed By: #### L AB15 ####Nailer Hand: JULI JONES ([phone])[facility])[address] [place] [address] CO2 [Moles/Vol] 24 mmol/L Normal 22-29 [facility] Comment on above: Performed By: #### L AB15 ####Nailer Hand: JULI JONES ([phone])[facility])[address] [place] [address] Creatinine [Mass/Vol] 2.67 mg/dL High 0.57-1.11 [facility] Comment on above: Performed By: #### L AB15 ####Nailer Hand: JULI JONES ([phone])[facility])[address] [place] [address] GLOMERULAR FILTRATION RATE ML/MIN/1.73 SQ M.PREDICTED 20.3 mL/min/1.73m*2 Low >60.0 [facility] Comment on above: Result Comment: Calc ulation based on the Chronic Kidney Disease Epidemiology Collaboration (CKD-EPI) equation refit without adjustment for race Performed By: #### L AB15 ####Nailer Hand: JULI JONES ([phone])[facility])[address] [place] [address] Glucose [Mass/Vol] 86 mg/dL Normal 74-100 [facility] Comment on above: Performed By: #### L AB15 ####Nailer Hand: JULI JONES ([phone])[facility])[address] [place] [address] Potassium [Moles/Vol] 5.0 mmol/L Normal 3.5-5.1 [facility] Comment on above: Result Comment: [facility] potassium values may be up to 0.5 mmol/L lower than serum values. Performed By: #### L AB15 ####Nailer Hand: JULI JONES ([phone])[facility] ([facility])[address] [place] [address] Sodium [Moles/Vol] 137 mmol/L Normal 136-145 [facility] Comment on above: Performed By: #### L AB15 ####Nailer Hand: JULI JONES ([phone])[facility] ([facility])[address] [place] [address] Urea nitrogen [Mass/Vol] 40 mg/dL High 9-23 [facility] Comment on above: Performed By: #### L AB15 ####Nailer Hand: JULI JONES ([phone])[facility])[address] [place] [address] Basic metabolic 1998 panelon 01-15-2025 Anion gap [Moles/Vol] 7 mmol/L 3 - 13 mmol/L [facility] Calcium [Mass/Vol] 9 mg/dL 8.4 - 10. 2 mg/dL [facility] Chloride [Moles/Vol] 106 mmol/L 98 - 10 7 mmol/L [facility] CO2 [Moles/Vol] 24 mmol/L 22 - 29 mmol/L [facility] Creatinine [Mass/Vol] 2.67 mg/dL High 0.57 - 1.11 mg/dL [facility] GFR/1.73 sq M.predicted (S/P/Bld) [Vol rate/Area] 20.3 mL/min Low - PINF [facility] Comment on above: Calculation based on the Chronic Kidney Disease Epidemiology Collaboration (CKD-EPI) equation refit without adjustment for race Glucose [Mass/Vol] 86 mg/dL 74 - 100 mg/dL [facility] Interpretation and review of laboratory results Abnormal [facility] Potassium [Moles/Vol] 5 mmol/L 3.5 - 5.1 mmol/L [facility] Comment on above: Plasma potassium [place] may be up to 0.5 mmol/L lower than serum values. Sodium [Moles/Vol] 137 mmol/L 136 - 145 mmol/L [facility] Urea nitrogen [Mass/Vol] 40 mg/dL High 9 - 23 mg/dL [facility] CBC (HEMOGRAM)on 01-15-2025 Erythrocyte distribution width (RBC) [Ratio] 17.1 % High 11.5-15.0 [facility] Comment on above: Performed By: #### L [id number] ####Nailer Hand: JULI JONES ([phone])[facility])[address] [place] [address] Hematocrit (Bld) [Volume fraction] 26.5 % Low 35.0-47.0 [facility] Comment on above: Performed By: #### L AB294 ####Nailer Hand: JULI JONES ([phone])[facility])[address] [place] [address] Hemoglobin (Bld) [Mass/Vol] 8.1 g/dL Low 11.7-16.0 [facility] Comment on above: Performed By: #### L [id number] ####Nailer Hand: JULI JONES ([phone])[facility])[address] [place] [address] MCH (RBC) [Entitic mass] 31.6 pg Normal 26.0-34.0 [facility] Comment on above: Performed By: #### L AB294 ####Nailer Hand: JULI JONES ([phone])[facility])[address] [place] [address] MCHC 30.6 % Normal 30.5-36.0 [facility] Comment on above: Performed By: #### L [id number] ####Nailer Hand: JULI JONES ([phone])[facility])[address] [place] [address] MCV (RBC) [Entitic vol] 103.5 fL High 77.0-99.0 [facility] Comment on above: Performed By: #### L [id number] ####Nailer Hand: JULI JONES ([phone])[facility])[address] [place] [address] Platelet mean volume (Bld) [Entitic vol] 9.0 fL Normal 9.0-12.7 [facility] Comment on above: Performed By: #### L [id number] ####Nailer Hand: JULI JONES ([phone])[facility] ([facility])[address] [place] [address] Platelets (Bld) [#/Vol] 220 10*3/uL Normal 140-440 [facility] Comment on above: Performed By: #### L [id number] ####Nailer Hand: JULI JONES ([phone])[facility] ([facility])[address] [place] [address] RBC (Bld) [#/Vol] 2.56 10*6/uL Low 3.80-5.20 [facility] Comment on above: Performed By: #### L [id number] ####Nailer Hand: JULI JONES ([phone])[facility] ([facility])[address] [place] [address] WBC (Bld) [#/Vol] 4.4 10*3/uL Normal 3.6-10.7 [facility] Comment on above: Performed By: #### L [id number] ####Nailer Hand: JULI JONES ([phone])[facility])[address] [place] [address] CBC panel Auto (Bld)Ordered By: Caridad Briggs on 01-15-2025 Erythrocyte distribution width (RBC) [Ratio] 17.1 % High 11.5 - 15.0 % [facility] Hematocrit (Bld) [Volume fraction] 26.5 % Low 35.0 - 47.0 % [facility] Hemoglobin (Bld) [Mass/Vol] 8.1 g/dL Low 11.7 - 16.0 g/dL [facility] Interpretation and review of laboratory results Abnormal [facility] MCH (RBC) [Entitic mass] 31.6 pg 26.0 - 34.0 pg [facility] MCHC (RBC) [Mass/Vol] 30.6 % 30.5 - 36.0 % [facility] MCV (RBC) [Entitic vol] 103.5 fL High 77.0 - 99.0 fL [facility] Platelet mean volume (Bld) [Entitic vol] 9 fL 9.0 - 12.7 fL [facility] Platelets (Bld) [#/Vol] 220 10*3/uL 140 - 440 10*3/uL [facility] RBC (Bld) [#/Vol] 2.56 10*6/uL Low 3.80 - 5.20 10*6/uL [facility] WBC (Bld) [#/Vol] 4.4 10*3/uL 3.6 - 10.7 10*3/uL [facility] Laboratory - Chemistry and C hemistry - challengeon 01-15-2025 Glucose [Mass/Vol] 106 mg/dL High 70 - 100 mg/dL [facility] No Panel Informationon 01-15 Interpretation and review of laboratory results Abnormal [facility] Performed by: [place] [address] CLIA ID: [id number] [facility] Nursing Noteon 01-15-2025 Nursing Note RN attempted to call report to [facility]. Was told nobody was available to take report. RN left name, and unit number. Normal [facility] Progress Noteon 01-15-2025 Progress Note Normal [facility] Progress Note Normal [facility] BASIC METABOLIC PANELon Anion gap [Moles/Vol] 7 mmol/L Normal 3-13 [facility] Comment on above: Performed By: #### L AB15 ####Nailer Hand: JULI JONES ([phone])[address] Calcium [Mass/Vol] 9.4 mg/dL Normal 8.4-10.2 [facility] Comment on above: Performed By: #### L AB15 ####Nailer Hand: JULI [phone])[address] Chloride [Moles/Vol] 104 mmol/L Normal 98-107 [facility] Comment on above: Performed By: #### L AB15 ####Nailer Hand: JULI [phone])[address] CO2 [Moles/Vol] 26 mmol/L Normal 22-29 [facility] Comment on above: Performed By: #### L AB15 ####Nailer Hand: JULI JONES ([phone])[facility])[address] [place] [address] Creatinine [Mass/Vol] 2.63 mg/dL High 0.57-1.11 [facility] Comment on above: Performed By: #### L AB15 ####Nailer Hand: JULI JONES ([phone])[facility])[address] [place] [address] GLOMERULAR FILTRATION RATE ML/MIN/1.73 SQ M.PREDICTED 20.6 mL/min/1.73m*2 Low >60.0 [facility] Comment on above: Result Comment: Calc ulation based on the Chronic Kidney Disease Epidemiology Collaboration (CKD-EPI) equation refit without adjustment for race Performed By: #### L AB15 ####Nailer Hand: JULI JONES ([phone])[facility] ([facility])[address] [place] [address] Glucose [Mass/Vol] 83 mg/dL Normal 74-100 [facility] Comment on above: Performed By: #### L AB15 ####Nailer Hand: JULI JONES ([phone])[facility])[address] [place] [address] Potassium [Moles/Vol] 4.8 mmol/L Normal 3.5-5.1 [facility] Comment on above: Result Comment: [facility] potassium values may be up to 0.5 mmol/L lower than serum values. Performed By: #### L AB15 ####Nailer Hand: JULI JONES ([phone])[facility])[address] [place] [address] [place] Sodium [Moles/Vol] 137 mmol/L Normal 136-145 [facility] Comment on above: Performed By: #### L AB15 ####Nailer Hand: JULI JONES ([phone])[facility])[address] [place] [address] Urea nitrogen [Mass/Vol] 41 mg/dL High 9-23 [facility] Comment on above: Performed By: #### L AB15 ####Nailer Hand: JULI JONES ([phone])[facility] ([facility])[address] [place] [address] Basic metabolic 1998 panelon 01-14-2025 Anion gap [Moles/Vol] 7 mmol/L 3 - 13 mmol/L [facility] Calcium [Mass/Vol] 9.4 mg/dL 8.4 - 10. 2 mg/dL [facility] Chloride [Moles/Vol] 104 mmol/L 98 - 10 7 mmol/L [facility] CO2 [Moles/Vol] 26 mmol/L 22 - 29 mmol/L [facility] Creatinine [Mass/Vol] 2.63 mg/dL High 0.57 - 1.11 mg/dL [facility] GFR/1.73 sq M.predicted (S/P/Bld) [Vol rate/Area] 20.6 mL/min Low - PINF [facility] Comment on above: Calculation based on the Chronic Kidney Disease Epidemiology Collaboration (CKD-EPI) equation refit without adjustment for race Glucose [Mass/Vol] 83 mg/dL 74 - 100 mg/dL [facility] Interpretation and review of laboratory results Abnormal [facility] Potassium [Moles/Vol] 4.8 mmol/L 3.5 - 5.1 mmol/L [facility] [place] Comment on above: Plasma potassium batsheva ues may be up to 0.5 mmol/L lower than serum values. Sodium [Moles/Vol] 137 mmol/L 136 - 145 mmol/L [facility] Urea nitrogen [Mass/Vol] 41 mg/dL High 9 - 23 mg/dL [facility] CBC (HEMOGRAM)on 01-14-2025 Erythrocyte distribution width (RBC) [Ratio] 17.2 % High 11.5-15.0 [facility] Comment on above: Performed By: #### L [id number] ####Nailer Hand: JULI JONES ([phone])[facility] ([facility])[address] [place] [address] Hematocrit (Bld) [Volume fraction] 28.7 % Low 35.0-47.0 [facility] Comment on above: Performed By: #### L [id number] ####Nailer Hand: JULI JONES ([phone])[facility])[address] [place] [address] Hemoglobin (Bld) [Mass/Vol] 8.9 g/dL Low 11.7-16.0 [facility] Comment on above: Performed By: #### L [id number] ####Nailer Hand: JULI JONES ([phone])[facility])[address] [place] [address] MCH (RBC) [Entitic mass] 31.9 pg Normal 26.0-34.0 [facility] Comment on above: Performed By: #### L AB294 ####Nailer Hand: JULI JONES ([phone])[facility])[address] [place] [address] MCHC 31.0 % Normal 30.5-36.0 [facility] Comment on above: Performed By: #### L AB294 ####Nailer Hand: JULI JONES ([phone])[facility])[address] [place] [address] MCV (RBC) [Entitic vol] 102.9 fL High 77.0-99.0 [facility] Comment on above: Performed By: #### L [id number] ####Nailer Hand: JULI JONES ([phone])[facility])[address] [place] [address] Platelet mean volume (Bld) [Entitic vol] 9.0 fL Normal 9.0-12.7 [facility] Comment on above: Performed By: #### L [id number] ####Nailer Hand: JULI JONES ([phone])[facility])[address] [place] [address] Platelets (Bld) [#/Vol] 248 10*3/uL Normal 140-440 [facility] Comment on above: Performed By: #### L AB294 ####Nailer Hand: JULI JONES ([phone])[facility] ([facility])[address] [place] [address] RBC (Bld) [#/Vol] 2.79 10*6/uL Low 3.80-5.20 [facility] Comment on above: Performed By: #### L AB294 ####Nailer Hand: JULI JONES ([phone])[facility] ([facility])[address] [place] [address] WBC (Bld) [#/Vol] 4.9 10*3/uL Normal 3.6-10.7 [facility] Comment on above: Performed By: #### L AB294 ####Nailer Hand: JULI OJNES ([phone])[facility] ([facility])[address] [place] [address] CBC panel Auto (Bld)on 01-14 Erythrocyte distribution width (RBC) [Ratio] 17.2 % High 11.5 - 15.0 % [facility] Hematocrit (Bld) [Volume fraction] 28.7 % Low 35.0 - 47.0 % [facility] Hemoglobin (Bld) [Mass/Vol] 8.9 g/dL Low 11.7 - 16.0 g/dL [facility] Interpretation and review of laboratory results Abnormal [facility] MCH (RBC) [Entitic mass] 31.9 pg 26.0 - 34.0 pg [facility] MCHC (RBC) [Mass/Vol] 31 % 30.5 - 36.0 % [facility] MCV (RBC) [Entitic vol] 102.9 fL High 77.0 - 99.0 fL [facility] Platelet mean volume (Bld) [Entitic vol] 9 fL 9.0 - 12.7 fL [facility] Platelets (Bld) [#/Vol] 248 10*3/uL 140 - 440 10*3/uL [facility] RBC (Bld) [#/Vol] 2.79 10*6/uL Low 3.80 - 5.20 10*6/uL [facility] WBC (Bld) [#/Vol] 4.9 10*3/uL 3.6 - 10.7 10*3/uL [facility] Progress Noteon 01-14-2025 Progress Note Normal [facility] 30on 01-13-2025 30 Normal [facility] [id number] 01-13-2025 [id number] Normal [facility] BASIC METABOLIC PANELon 06-0 Anion gap [Moles/Vol] 8 mmol/L Normal 3-13 [facility] Comment on above: Performed By: #### L AB15 ####Nailer Hand: JULI JONES ([phone])[facility])[address] [place] [address] Calcium [Mass/Vol] 9.3 mg/dL Normal 8.4-10.2 [facility] Comment on above: Performed By: #### L AB15 ####Nailer Hand: JULI JONES ([phone])[facility] ([facility])[address] [place] [address] Chloride [Moles/Vol] 104 mmol/L Normal 98-107 [facility] Comment on above: Performed By: #### L AB15 ####Nailer Hand: JULI JONES ([phone])[facility] ([facility])[address] [place] [address] CO2 [Moles/Vol] 26 mmol/L Normal 22-29 [facility] Comment on above: Performed By: #### L AB15 ####Nailer Hand: JULI JONES ([phone])[facility])[address] [place] [address] Creatinine [Mass/Vol] 2.71 mg/dL High 0.57-1.11 [facility] Comment on above: Performed By: #### L AB15 ####Nailer Hand: JULI JONES ([phone])[facility])[address] [place] [address] [place] GLOMERULAR FILTRATION RATE ML/MIN/1.73 SQ M.PREDICTED 19.9 mL/min/1.73m*2 Low >60.0 [facility] Comment on above: Result Comment: Calc ulation based on the Chronic Kidney Disease Epidemiology Collaboration (CKD-EPI) equation refit without adjustment for race Performed By: #### L AB15 ####Nailer Hand: JULI JONES ([phone])[facility])[address] [place] [address] Glucose [Mass/Vol] 86 mg/dL Normal 74-100 [facility] Comment on above: Performed By: #### L AB15 ####Nailer Hand: JULI JONES ([phone])[facility])[address] [place] [address] Potassium [Moles/Vol] 4.8 mmol/L Normal 3.5-5.1 [facility] Comment on above: Result Comment: [facility] potassium values may be up to 0.5 mmol/L lower than serum values. Performed By: #### L AB15 ####Nailer Hand: JULI JONES ([phone])[facility] ([facility])[address] [place] [address] Sodium [Moles/Vol] 138 mmol/L Normal 136-145 [facility] Comment on above: Performed By: #### L AB15 ####Nailer Hand: JULI JONES ([phone])[facility])[address] [place] [address] Urea nitrogen [Mass/Vol] 45 mg/dL High 9-23 [facility] Comment on above: Performed By: #### L AB15 ####Nailer Hand: JULI JONES ([phone])[facility])[address] [place] [address] Basic metabolic 1998 panelon 01-13-2025 Anion gap [Moles/Vol] 8 mmol/L 3 - 13 mmol/L [facility] Calcium [Mass/Vol] 9.3 mg/dL 8.4 - 10. 2 mg/dL [facility] Chloride [Moles/Vol] 104 mmol/L 98 - 10 7 mmol/L [facility] CO2 [Moles/Vol] 26 mmol/L 22 - 29 mmol/L [facility] Creatinine [Mass/Vol] 2.71 mg/dL High 0.57 - 1.11 mg/dL [facility] GFR/1.73 sq M.predicted (S/P/Bld) [Vol rate/Area] 19.9 mL/min Low - PINF [facility] Comment on above: Calculation based on the Chronic Kidney Disease Epidemiology Collaboration (CKD-EPI) equation refit without adjustment for race Glucose [Mass/Vol] 86 mg/dL 74 - 100 mg/dL [facility] Interpretation and review of laboratory results Abnormal [facility] Potassium [Moles/Vol] 4.8 mmol/L 3.5 - 5.1 mmol/L [facility] Comment on above: Plasma potassium bats[place] ues may be up to 0.5 mmol/L lower than serum values. Sodium [Moles/Vol] 138 mmol/L 136 - 145 mmol/L [facility] Urea nitrogen [Mass/Vol] 45 mg/dL High 9 - 23 mg/dL [facility] CBC (HEMOGRAM)on 01-13-2025 Erythrocyte distribution width (RBC) [Ratio] 17.2 % High 11.5-15.0 [facility] Comment on above: Performed By: #### L [id number] ####Nailer Hand: JULI JONES ([phone])[address] Hematocrit (Bld) [Volume fraction] 29.6 % Low 35.0-47.0 [facility] Comment on above: Performed By: #### L AB294 ####Nailer Hand: JULI JONES ([phone])[address] Hemoglobin (Bld) [Mass/Vol] 9.1 g/dL Low 11.7-16.0 [facility] Comment on above: Performed By: #### L [id number] ####Nailer Hand: JULI JONES ([phone])[facility])[address] [place] [address] MCH (RBC) [Entitic mass] 31.8 pg Normal 26.0-34.0 [facility] Comment on above: Performed By: #### L [id number] ####Nailer Hand: JULI JONES ([phone])[address] MCHC 30.7 % Normal 30.5-36.0 [facility] Comment on above: Performed By: #### L AB294 ####Nailer Hand: JULI JONES ([phone])[facility])[address] [place] [address] MCV (RBC) [Entitic vol] 103.5 fL High 77.0-99.0 [facility] Comment on above: Performed By: #### L AB294 ####Nailer Hand: JULI JONES ([phone])[facility])[address] [place] [address] Platelet mean volume (Bld) [Entitic vol] 9.0 fL Normal 9.0-12.7 [facility] Comment on above: Performed By: #### L [id number] ####Nailer Hand: JULI JONES ([phone])[facility])[address] [place] [address] Platelets (Bld) [#/Vol] 268 10*3/uL Normal 140-440 [facility] Comment on above: Performed By: #### L [id number] ####Nailer Hand: JULI JONES ([phone])[facility])[address] [place] [address] RBC (Bld) [#/Vol] 2.86 10*6/uL Low 3.80-5.20 [facility] Comment on above: Performed By: #### L AB294 ####Nailer Hand: JULI JONES ([phone])[facility])[address] [place] [address] WBC (Bld) [#/Vol] 5.2 10*3/uL Normal 3.6-10.7 [facility] Comment on above: Performed By: #### L [id number] ####Nailer Hand: JULI JONES ([phone])[facility])[address] [place] [address] CBC panel Auto (Bld)on 01-13 Erythrocyte distribution width (RBC) [Ratio] 17.2 % High 11.5 - 15.0 % [facility] Hematocrit (Bld) [Volume fraction] 29.6 % Low 35.0 - 47.0 % [facility] Hemoglobin (Bld) [Mass/Vol] 9.1 g/dL Low 11.7 - 16.0 g/dL [facility] Interpretation and review of laboratory results Abnormal [facility] MCH (RBC) [Entitic mass] 31.8 pg 26.0 - 34.0 pg [facility] MCHC (RBC) [Mass/Vol] 30.7 % 30.5 - 36.0 % [facility] MCV (RBC) [Entitic vol] 103.5 fL High 77.0 - 99.0 fL [facility] Platelet mean volume (Bld) [Entitic vol] 9 fL 9.0 - 12.7 fL [facility] Platelets (Bld) [#/Vol] 268 10*3/uL 140 - 440 10*3/uL [facility] RBC (Bld) [#/Vol] 2.86 10*6/uL Low 3.80 - 5.20 10*6/uL [facility] WBC (Bld) [#/Vol] 5.2 10*3/uL 3.6 - 10.7 10*3/uL [facility] Progress Noteon 01-13-2025 Progress Note Nutrition update com pleted. Chart reviewed. Patient to be monitored and followed by the diet audiometric technician. AMANDA Pedersen [facility] Progress Note Normal [facility] 30on 01-12-2025 30 Normal [facility] 30 Normal [facility] [id number] 01-12-2025 [id number] CM tasked to follow over the weekend. Msg sent to facility - [facility] itzel remains pending. CM to assist with DC once auth is back. [facility] BASIC METABOLIC PANELon 05 Anion gap [Moles/Vol] 8 mmol/L Normal 3-13 [facility] Comment on above: Performed By: #### L AB15 ####Nailer Hand: JULI JONES ([phone])[facility])[address] [place] [address] Calcium [Mass/Vol] 8.8 mg/dL Normal 8.4-10.2 [facility] Comment on above: Performed By: #### L AB15 ####Nailer Hand: JULI JONES ([phone])[facility] ([facility])[address] [place] [address] Chloride [Moles/Vol] 104 mmol/L Normal 98-107 [facility] Comment on above: Performed By: #### L AB15 ####Nailer Hand: JULI JONES ([phone])[facility] ([facility])[address] [place] [address] CO2 [Moles/Vol] 24 mmol/L Normal 22-29 [facility] Comment on above: Performed By: #### L AB15 ####Nailer Hand: JULI JONES ([phone])[facility] ([facility])[address] [place] [address] Creatinine [Mass/Vol] 2.53 mg/dL High 0.57-1.11 [facility] Comment on above: Performed By: #### L AB15 ####Nailer Hand: JULI JONES ([phone])[facility])[address] [place] [address] GLOMERULAR FILTRATION RATE ML/MIN/1.73 SQ M.PREDICTED 21.6 mL/min/1.73m*2 Low >60.0 [facility] Comment on above: Result Comment: Calc ulation based on the Chronic Kidney Disease Epidemiology Collaboration (CKD-EPI) equation refit without adjustment for race Performed By: #### L AB15 ####Nailer Hand: JULI JONES ([phone])[facility] ([facility])[address] [place] [address] Glucose [Mass/Vol] 76 mg/dL Normal 74-100 [facility] Comment on above: Performed By: #### L AB15 ####Nailer Hand: JULI JONES ([phone])[facility])[address] [place] [address] Potassium [Moles/Vol] 5.0 mmol/L Normal 3.5-5.1 [facility] Comment on above: Result Comment: [facility] potassium values may be up to 0.5 mmol/L lower than serum values. Performed By: #### L AB15 ####Nailer Hand: JULI JONES ([phone])[facility] ([facility])[address] [place] [address] Sodium [Moles/Vol] 136 mmol/L Normal 136-145 [facility] Comment on above: Performed By: #### L AB15 ####Nailer Hand: JULI JONES ([phone])[facility])[address] [place] [address] Urea nitrogen [Mass/Vol] 41 mg/dL High 9-23 [facility] Comment on above: Performed By: #### L AB15 ####Nailer Hand: JULI JONES ([phone])[facility] ([facility])[address] [place] [address] Basic metabolic 1998 panelOr dered By: Johnny Macdonald on 01-12-2025 Anion gap [Moles/Vol] 8 mmol/L 3 - 13 mmol/L [facility] Calcium [Mass/Vol] 8.8 mg/dL 8.4 - 10. 2 mg/dL [facility] Chloride [Moles/Vol] 104 mmol/L 98 - 10 7 mmol/L [facility] CO2 [Moles/Vol] 24 mmol/L 22 - 29 mmol/L [facility] Creatinine [Mass/Vol] 2.53 mg/dL High 0.57 - 1.11 mg/dL [facility] GFR/1.73 sq M.predicted (S/P/Bld) [Vol rate/Area] 21.6 mL/min Low - PINF [facility] Comment on above: Calculation based on the Chronic Kidney Disease Epidemiology Collaboration (CKD-EPI) equation refit without adjustment for race Glucose [Mass/Vol] 76 mg/dL 74 - 100 mg/dL [facility] Interpretation and review of laboratory results Abnormal [facility] Potassium [Moles/Vol] 5 mmol/L 3.5 - 5.1 mmol/L [facility] Comment on above: Plasma potassium bats[place] ues may be up to 0.5 mmol/L lower than serum values. Sodium [Moles/Vol] 136 mmol/L 136 - 145 mmol/L [facility] Urea nitrogen [Mass/Vol] 41 mg/dL High 9 - 23 mg/dL [facility] CBC (HEMOGRAM)on 01-12-2025 Erythrocyte distribution width (RBC) [Ratio] 17.2 % High 11.5-15.0 [facility] Comment on above: Performed By: #### L [id number] ####Nailer Hand: JULI JONES ([phone])[facility])[address] [place] [address] Hematocrit (Bld) [Volume fraction] 24.0 % Low 35.0-47.0 [facility] Comment on above: Performed By: #### L [id number] ####Nailer Hand: JULI JONES ([phone])[address] Hemoglobin (Bld) [Mass/Vol] 7.7 g/dL Low 11.7-16.0 [facility] Comment on above: Performed By: #### L AB294 ####Nailer Hand: JULI JONES ([phone])[facility])[address] [place] [address] MCH (RBC) [Entitic mass] 32.2 pg Normal 26.0-34.0 [facility] Comment on above: Performed By: #### L AB294 ####Nailer Hand: JULI JONES ([phone])[address] MCHC 32.1 % Normal 30.5-36.0 [facility] Comment on above: Performed By: #### L AB294 ####Nailer Hand: JULI JONES ([phone])[address] MCV (RBC) [Entitic vol] 100.4 fL High 77.0-99.0 [facility] Comment on above: Performed By: #### L AB294 ####Nailer Hand: JULI JONES ([phone])[facility] ([facility])[address] [place] [address] Platelet mean volume (Bld) [Entitic vol] 9.1 fL Normal 9.0-12.7 [facility] Comment on above: Performed By: #### L AB294 ####Nailer Hand: JULI JONES ([phone])[facility] ([facility])[address] [place] [address] Platelets (Bld) [#/Vol] 241 10*3/uL Normal 140-440 [facility] Comment on above: Performed By: #### L [id number] ####Nailer Hand: JULI JONES ([phone])[facility] ([facility])[address] [place] [address] RBC (Bld) [#/Vol] 2.39 10*6/uL Low 3.80-5.20 [facility] Comment on above: Performed By: #### L AB294 ####Nailer Hand: JULI JONES ([phone])[facility] ([facility])[address] [place] [address] WBC (Bld) [#/Vol] 5.9 10*3/uL Normal 3.6-10.7 [facility] Comment on above: Performed By: #### L AB294 ####Nailer Hand: JULI JONES ([phone])[facility] ([facility])[address] [place] [address] CBC panel Auto (Bld)on 01-12 Erythrocyte distribution width (RBC) [Ratio] 17.2 % High 11.5 - 15.0 % [facility] Hematocrit (Bld) [Volume fraction] 24 % Low 35.0 - 47.0 % [facility] Hemoglobin (Bld) [Mass/Vol] 7.7 g/dL Low 11.7 - 16.0 g/dL [facility] Interpretation and review of laboratory results Abnormal [facility] MCH (RBC) [Entitic mass] 32.2 pg 26.0 - 34.0 pg [facility] MCHC (RBC) [Mass/Vol] 32.1 % 30.5 - 36.0 % [facility] MCV (RBC) [Entitic vol] 100.4 fL High 77.0 - 99.0 fL [facility] Platelet mean volume (Bld) [Entitic vol] 9.1 fL 9.0 - 12.7 fL [facility] Platelets (Bld) [#/Vol] 241 10*3/uL 140 - 440 10*3/uL [facility] RBC (Bld) [#/Vol] 2.39 10*6/uL Low 3.80 - 5.20 10*6/uL [facility] WBC (Bld) [#/Vol] 5.9 10*3/uL 3.6 - 10.7 10*3/uL [facility] Progress Noteon 01-12-2025 Progress Note Normal [facility] 30on 01-11-2025 30 Normal [facility] 30 Normal [facility] [id number] 01-11-2025 [id number] Normal [facility] [id number] Normal [facility] BASIC METABOLIC PANELon 05 Anion gap [Moles/Vol] 4 mmol/L Normal 3-13 [facility] Comment on above: Performed By: #### L AB15 ####Nailer Hand: JULI JONES ([phone])[facility])[address] [place] [address] [place] Calcium [Mass/Vol] 8.5 mg/dL Normal 8.4-10.2 [facility] Comment on above: Performed By: #### L AB15 ####Nailer Hand: JULI JONES ([phone])[facility] ([facility])[address] [place] [address] [place] Chloride [Moles/Vol] 99 mmol/L Normal 98-107 [facility] Comment on above: Performed By: #### L AB15 ####Nailer Hand: JULI JONES ([phone])[facility] ([facility])[address] [place] [address] [place] CO2 [Moles/Vol] 24 mmol/L Normal 22-29 [facility] Comment on above: Performed By: #### L AB15 ####Nailer Hand: JULI JONES ([phone])[facility] ([facility])[address] [place] [address] Creatinine [Mass/Vol] 2.35 mg/dL High 0.57-1.11 [facility] Comment on above: Performed By: #### L AB15 ####Nailer Hand: JULI JONES ([phone])[facility])[address] [place] [address] GLOMERULAR FILTRATION RATE ML/MIN/1.73 SQ M.PREDICTED 23.6 mL/min/1.73m*2 Low >60.0 [facility] Comment on above: Result Comment: Calc ulation based on the Chronic Kidney Disease Epidemiology Collaboration (CKD-EPI) equation refit without adjustment for race Performed By: #### L AB15 ####Nailer Hand: JULI JONES ([phone])[facility])[address] [place] [address] Glucose [Mass/Vol] 87 mg/dL Normal 74-100 [facility] Comment on above: Performed By: #### L AB15 ####Nailer Hand: JULI JONES ([phone])[facility])[address] [place] [address] Potassium [Moles/Vol] 4.9 mmol/L Normal 3.5-5.1 [facility] Comment on above: Result Comment: [facility] potassium values may be up to 0.5 mmol/L lower than serum values. Performed By: #### L AB15 ####Nailer Hand: JULI JONES ([phone])[facility] ([facility])[address] [place] [address] [place] Sodium [Moles/Vol] 127 mmol/L Low 136-145 [facility] Comment on above: Performed By: #### L AB15 ####Nailer Hand: JULI JONES ([phone])[facility] ([facility])[address] [place] [address] Urea nitrogen [Mass/Vol] 41 mg/dL High 9-23 [facility] Comment on above: Performed By: #### L AB15 ####Nailer Hand: JULI JONES ([phone])[facility] ([facility])[address] [place] [address] Basic metabolic 1998 panelon 01-11-2025 Anion gap [Moles/Vol] 4 mmol/L 3 - 13 mmol/L [facility] Calcium [Mass/Vol] 8.5 mg/dL 8.4 - 10. 2 mg/dL [facility] Chloride [Moles/Vol] 99 mmol/L 98 - 10 7 mmol/L [facility] CO2 [Moles/Vol] 24 mmol/L 22 - 29 mmol/L [facility] Creatinine [Mass/Vol] 2.35 mg/dL High 0.57 - 1.11 mg/dL [facility] GFR/1.73 sq M.predicted (S/P/Bld) [Vol rate/Area] 23.6 mL/min Low - PINF [facility] Comment on above: Calculation based on the Chronic Kidney Disease Epidemiology Collaboration (CKD-EPI) equation refit without adjustment for race Glucose [Mass/Vol] 87 mg/dL 74 - 100 mg/dL [facility] Interpretation and review of laboratory results Abnormal [facility] Potassium [Moles/Vol] 4.9 mmol/L 3.5 - 5.1 mmol/L [facility] Comment on above: Plasma potassium batsheva ues may be up to 0.5 mmol/L lower than serum values. Sodium [Moles/Vol] 127 mmol/L Low 136 - 145 mmol/L [facility] Urea nitrogen [Mass/Vol] 41 mg/dL High 9 - 23 mg/dL [facility] CBC (HEMOGRAM)on 01-11-2025 Erythrocyte distribution width (RBC) [Ratio] 16.8 % High 11.5-15.0 [facility] Comment on above: Performed By: #### L [id number] ####Nailer Hand: JULI JONES ([phone])[facility] ([facility])[address] [place] [address] Hematocrit (Bld) [Volume fraction] 24.9 % Low 35.0-47.0 [facility] Comment on above: Performed By: #### L [id number] ####Nailer Hand: JULI JONES ([phone])[facility] ([facility])[address] [place] [address] Hemoglobin (Bld) [Mass/Vol] 7.8 g/dL Low 11.7-16.0 [facility] Comment on above: Performed By: #### L [id number] ####Nailer Hand: JULI JONES ([phone])[facility] ([facility])[address] [place] [address] MCH (RBC) [Entitic mass] 31.7 pg Normal 26.0-34.0 [facility] Comment on above: Performed By: #### L [id number] ####Nailer Hand: JULI JONES ([phone])[facility])[address] [place] [address] MCHC 31.3 % Normal 30.5-36.0 [facility] Comment on above: Performed By: #### L AB294 ####Nailer Hand: JULI JONES ([phone])[facility] ([facility])[address] [place] [address] MCV (RBC) [Entitic vol] 101.2 fL High 77.0-99.0 [facility] Comment on above: Performed By: #### L AB294 ####Nailer Hand: JULI JONES ([phone])[facility])[address] [place] [address] Platelet mean volume (Bld) [Entitic vol] 9.0 fL Normal 9.0-12.7 [facility] Comment on above: Performed By: #### L [id number] ####Nailer Hand: JULI JONES ([phone])[facility])[address] [place] [address] Platelets (Bld) [#/Vol] 250 10*3/uL Normal 140-440 [facility] Comment on above: Performed By: #### L AB294 ####Nailer Hand: JULI JONES ([phone])[facility])[address] [place] [address] [place] RBC (Bld) [#/Vol] 2.46 10*6/uL Low 3.80-5.20 [facility] Comment on above: Performed By: #### L AB294 ####Nailer Hand: JULI JONES ([phone])[facility] ([facility])[address] [place] [address] WBC (Bld) [#/Vol] 7.8 10*3/uL Normal 3.6-10.7 [facility] Comment on above: Performed By: #### L AB294 ####Nailer Hand: JULI JONES ([phone])[facility])[address] [place] [address] CBC panel Auto (Bld)on 01-11 Erythrocyte distribution width (RBC) [Ratio] 16.8 % High 11.5 - 15.0 % [facility] Hematocrit (Bld) [Volume fraction] 24.9 % Low 35.0 - 47.0 % [facility] Hemoglobin (Bld) [Mass/Vol] 7.8 g/dL Low 11.7 - 16.0 g/dL [facility] Interpretation and review of laboratory results Abnormal [facility] MCH (RBC) [Entitic mass] 31.7 pg 26.0 - 34.0 pg [facility] MCHC (RBC) [Mass/Vol] 31.3 % 30.5 - 36.0 % [facility] MCV (RBC) [Entitic vol] 101.2 fL High 77.0 - 99.0 fL [facility] Platelet mean volume (Bld) [Entitic vol] 9 fL 9.0 - 12.7 fL [facility] Platelets (Bld) [#/Vol] 250 10*3/uL 140 - 440 10*3/uL [facility] RBC (Bld) [#/Vol] 2.46 10*6/uL Low 3.80 - 5.20 10*6/uL [facility] WBC (Bld) [#/Vol] 7.8 10*3/uL 3.6 - 10.7 10*3/uL [facility] Laboratory - Chemistry and C hemistry - challengeon 01-11-2025 Glucose [Mass/Vol] 113 mg/dL High 70 - 100 mg/dL [facility] No Panel Informationon 01-11 Interpretation and review of laboratory results Abnormal [facility] Performed by: [facility], [address] [place] [address] CLIA ID: [id number] [facility] Progress Noteon 01-11-2025 Progress Note Normal [facility] [id number] 01-10-2025 [id number] SW follow up: SW completed Will Call in Roundtrip. Will Call on calendar date 01/11. Awaiting insurance auth, for pt to go to [facility]. . Normal [facility] BASIC METABOLIC PANELon 12-14 Anion gap [Moles/Vol] 11 mmol/L Normal 3-13 [facility] Comment on above: Performed By: #### L AB15 ####Nailer Hand: JULI JONES ([phone])[facility])[address] [place] [address] Calcium [Mass/Vol] 8.8 mg/dL Normal 8.4-10.2 [facility] Comment on above: Performed By: #### L AB15 ####Nailer Hand: JULI JONES ([phone])[facility] ([facility])[address] [place] [address] [place] Chloride [Moles/Vol] 99 mmol/L Normal 98-107 [facility] Comment on above: Performed By: #### L AB15 ####Nailer Hand: JULI JONES ([phone])[facility] ([facility])[address] [place] [address] [place] CO2 [Moles/Vol] 21 mmol/L Low 22-29 [facility] Comment on above: Performed By: #### L AB15 ####Nailer Hand: JULI JONES ([phone])[facility] ([facility])[address] [place] [address] Creatinine [Mass/Vol] 2.46 mg/dL High 0.57-1.11 [facility] Comment on above: Performed By: #### L AB15 ####Nailer Hand: JULI JONES ([phone])[facility])[address] [place] [address] GLOMERULAR FILTRATION RATE ML/MIN/1.73 SQ M.PREDICTED 22.4 mL/min/1.73m*2 Low >60.0 [facility] Comment on above: Result Comment: Calc ulation based on the Chronic Kidney Disease Epidemiology Collaboration (CKD-EPI) equation refit without adjustment for race Performed By: #### L AB15 ####Nailer Hand: JULI JONES ([phone])[facility])[address] [place] [address] Glucose [Mass/Vol] 91 mg/dL Normal 74-100 [facility] Comment on above: Performed By: #### L AB15 ####Nailer Hand: JULI JONES ([phone])[facility])[address] [place] [address] Potassium [Moles/Vol] 5.1 mmol/L Normal 3.5-5.1 [facility] Comment on above: Result Comment: [facility] potassium values may be up to 0.5 mmol/L lower than serum values. Performed By: #### L AB15 ####Nailer Hand: JULI JONES ([phone])[facility])[address] [place] [address] Sodium [Moles/Vol] 131 mmol/L Low 136-145 [facility] Comment on above: Performed By: #### L AB15 ####Nailer Hand: JULI JONES ([phone])[facility])[address] [place] [address] [place] Urea nitrogen [Mass/Vol] 35 mg/dL High 9-23 [facility] Comment on above: Performed By: #### L AB15 ####Nailer Hand: JULI JONES ([phone])[facility])[address] [place] [address] Basic metabolic 1998 panelon 01-10-2025 Anion gap [Moles/Vol] 11 mmol/L 3 - 13 mmol/L [facility] Calcium [Mass/Vol] 8.8 mg/dL 8.4 - 10. 2 mg/dL [facility] Chloride [Moles/Vol] 99 mmol/L 98 - 10 7 mmol/L [facility] CO2 [Moles/Vol] 21 mmol/L Low 22 - 29 mmol/L [facility] Creatinine [Mass/Vol] 2.46 mg/dL High 0.57 - 1.11 mg/dL [facility] GFR/1.73 sq M.predicted (S/P/Bld) [Vol rate/Area] 22.4 mL/min Low - PINF [facility] Comment on above: Calculation based on the Chronic Kidney Disease Epidemiology Collaboration (CKD-EPI) equation refit without adjustment for race Glucose [Mass/Vol] 91 mg/dL 74 - 100 mg/dL [facility] Interpretation and review of laboratory results Abnormal [facility] Potassium [Moles/Vol] 5.1 mmol/L 3.5 - 5.1 mmol/L [facility] Comment on above: Plasma potassium bats[place] ues may be up to 0.5 mmol/L lower than serum values. Sodium [Moles/Vol] 131 mmol/L Low 136 - 145 mmol/L [facility] Urea nitrogen [Mass/Vol] 35 mg/dL High 9 - 23 mg/dL [facility] CBC (HEMOGRAM)on 01-10-2025 Erythrocyte distribution width (RBC) [Ratio] 16.5 % High 11.5-15.0 [facility] Comment on above: Performed By: #### L [id number] ####Nailer Hand: JULI JONES ([phone])[address] Hematocrit (Bld) [Volume fraction] 25.4 % Low 35.0-47.0 [facility] Comment on above: Performed By: #### L [id number] ####Nailer Hand: JULI JONES ([phone])[address] Hemoglobin (Bld) [Mass/Vol] 7.8 g/dL Low 11.7-16.0 [facility] Comment on above: Performed By: #### L [id number] ####Nailer Hand: JULI JONES ([phone])[facility])[address] [place] [address] MCH (RBC) [Entitic mass] 30.7 pg Normal 26.0-34.0 [facility] Comment on above: Performed By: #### L AB294 ####Nailer Hand: JULI JONES ([phone])[facility])[address] [place] [address] MCHC 30.7 % Normal 30.5-36.0 [facility] Comment on above: Performed By: #### L AB294 ####Nailer Hand: JULI JONES ([phone])[facility])[address] [place] [address] MCV (RBC) [Entitic vol] 100.0 fL High 77.0-99.0 [facility] Comment on above: Performed By: #### L AB294 ####Nailer Hand: JULI JONES ([phone])[facility] ([facility])[address] [place] [address] Platelet mean volume (Bld) [Entitic vol] 8.8 fL Low 9.0-12.7 [facility] Comment on above: Performed By: #### L [id number] ####Nailer Hand: JULI JONES ([phone])[facility])[address] [place] [address] Platelets (Bld) [#/Vol] 269 10*3/uL Normal 140-440 [facility] Comment on above: Performed By: #### L AB294 ####Nailer Hand: JULI JONES ([phone])[facility])[address] [place] [address] RBC (Bld) [#/Vol] 2.54 10*6/uL Low 3.80-5.20 [facility] Comment on above: Performed By: #### L AB294 ####Nailer Hand: JULI JONES ([phone])[facility])[address] [place] [address] WBC (Bld) [#/Vol] 8.1 10*3/uL Normal 3.6-10.7 [facility] Comment on above: Performed By: #### L [id number] ####Nailer Hand: JULI JONES ([phone])[facility] ([facility])[address] [place] [address] CBC panel Auto (Bld)on 01-10 Erythrocyte distribution width (RBC) [Ratio] 16.5 % High 11.5 - 15.0 % [facility] Hematocrit (Bld) [Volume fraction] 25.4 % Low 35.0 - 47.0 % [facility] Hemoglobin (Bld) [Mass/Vol] 7.8 g/dL Low 11.7 - 16.0 g/dL [facility] Interpretation and review of laboratory results Abnormal [facility] MCH (RBC) [Entitic mass] 30.7 pg 26.0 - 34.0 pg [facility] MCHC (RBC) [Mass/Vol] 30.7 % 30.5 - 36.0 % [facility] MCV (RBC) [Entitic vol] 100 fL High 77.0 - 99.0 fL [facility] Platelet mean volume (Bld) [Entitic vol] 8.8 fL Low 9.0 - 12.7 fL [facility] Platelets (Bld) [#/Vol] 269 10*3/uL 140 - 440 10*3/uL [facility] RBC (Bld) [#/Vol] 2.54 10*6/uL Low 3.80 - 5.20 10*6/uL [facility] WBC (Bld) [#/Vol] 8.1 10*3/uL 3.6 - 10.7 10*3/uL [facility] Progress Noteon 01-10-2025 Progress Note Normal [facility] 30on 01-09-2025 30 Normal [facility] [id number] 01-09-2025 [id number] Updated Clinicals pl aced to [facility] Joy Wiggins via [employer] per [facility] request. Normal [facility] [id number] Normal [facility] [id number] Normal [facility] BASIC METABOLIC PANELon 05-2 Anion gap [Moles/Vol] 6 mmol/L Normal 3-13 [facility] Comment on above: Performed By: #### L AB15 ####Nailer Hand: JULI JONES ([phone])[facility] ([facility])[address] [place] [address] Calcium [Mass/Vol] 8.7 mg/dL Normal 8.4-10.2 [facility] Comment on above: Performed By: #### L AB15 ####Nailer Hand: JULI JONES ([phone])[facility] ([facility])[address] [place] [address] Chloride [Moles/Vol] 102 mmol/L Normal 98-107 [facility] Comment on above: Performed By: #### L AB15 ####Nailer Hand: JULI JONES ([phone])[facility])[address] [place] [address] CO2 [Moles/Vol] 24 mmol/L Normal 22-29 [facility] Comment on above: Performed By: #### L AB15 ####Nailer Hand: JULI JONES ([phone])[facility] ([facility])[address] [place] [address] Creatinine [Mass/Vol] 2.44 mg/dL High 0.57-1.11 [facility] Comment on above: Performed By: #### L AB15 ####Nailer Hand: JULI JONES ([phone])[facility] ([facility])[address] [place] [address] [place] GLOMERULAR FILTRATION RATE ML/MIN/1.73 SQ M.PREDICTED 22.6 mL/min/1.73m*2 Low >60.0 [facility] Comment on above: Result Comment: Calc ulation based on the Chronic Kidney Disease Epidemiology Collaboration (CKD-EPI) equation refit without adjustment for race Performed By: #### L AB15 ####Nailer Hand: JULI JONES ([phone])[facility])[address] [place] [address] Glucose [Mass/Vol] 84 mg/dL Normal 74-100 [facility] Comment on above: Performed By: #### L AB15 ####Nailer Hand: JULI JONES ([phone])[facility])[address] [place] [address] Potassium [Moles/Vol] 5.0 mmol/L Normal 3.5-5.1 [facility] Comment on above: Result Comment: [facility] potassium values may be up to 0.5 mmol/L lower than serum values. Performed By: #### L AB15 ####Nailer Hand: JULI JONES ([phone])[facility])[address] [place] [address] Sodium [Moles/Vol] 132 mmol/L Low 136-145 [facility] Comment on above: Performed By: #### L AB15 ####Nailer Hand: JULI JONES ([phone])[facility])[address] [place] [address] Urea nitrogen [Mass/Vol] 32 mg/dL High 9-23 [facility] Comment on above: Performed By: #### L AB15 ####Nailer Hand: JULI JONES ([phone])[facility])[address] [place] [address] Basic metabolic 1998 panelon 01-09-2025 Anion gap [Moles/Vol] 6 mmol/L 3 - 13 mmol/L [facility] Calcium [Mass/Vol] 8.7 mg/dL 8.4 - 10. 2 mg/dL [facility] Chloride [Moles/Vol] 102 mmol/L 98 - 10 7 mmol/L [facility] CO2 [Moles/Vol] 24 mmol/L 22 - 29 mmol/L [facility] Creatinine [Mass/Vol] 2.44 mg/dL High 0.57 - 1.11 mg/dL [facility] GFR/1.73 sq M.predicted (S/P/Bld) [Vol rate/Area] 22.6 mL/min Low - PINF [facility] Comment on above: Calculation based on the Chronic Kidney Disease Epidemiology Collaboration (CKD-EPI) equation refit without adjustment for race Glucose [Mass/Vol] 84 mg/dL 74 - 100 mg/dL [facility] Interpretation and review of laboratory results Abnormal [facility] Potassium [Moles/Vol] 5 mmol/L 3.5 - 5.1 mmol/L [facility] Comment on above: Plasma potassium [place] ues may be up to 0.5 mmol/L lower than serum values. Sodium [Moles/Vol] 132 mmol/L Low 136 - 145 mmol/L [facility] Urea nitrogen [Mass/Vol] 32 mg/dL High 9 - 23 mg/dL [facility] CBC (HEMOGRAM)on 01-09-2025 Erythrocyte distribution width (RBC) [Ratio] 16.3 % High 11.5-15.0 [facility] Comment on above: Performed By: #### L [id number] ####Nailer Hand: JULI JONES ([phone])[address] Hematocrit (Bld) [Volume fraction] 26.0 % Low 35.0-47.0 [facility] Comment on above: Performed By: #### L AB294 ####Nailer Hand: JULI JONES ([phone])[address] Hemoglobin (Bld) [Mass/Vol] 8.0 g/dL Low 11.7-16.0 [facility] Comment on above: Performed By: #### L AB294 ####Nailer Hand: JULI JONES ([phone])[facility])[address] [place] [address] MCH (RBC) [Entitic mass] 31.3 pg Normal 26.0-34.0 [facility] Comment on above: Performed By: #### L AB294 ####Nailer Hand: JULI JONES ([phone])[address] MCHC 30.8 % Normal 30.5-36.0 [facility] Comment on above: Performed By: #### L AB294 ####Nailer Hand: JULI JONES ([phone])[facility] ([facility])[address] [place] [address] MCV (RBC) [Entitic vol] 101.6 fL High 77.0-99.0 [facility] Comment on above: Performed By: #### L AB294 ####Nailer Hand: JULI JONES ([phone])[facility] ([facility])[address] [place] [address] Platelet mean volume (Bld) [Entitic vol] 9.1 fL Normal 9.0-12.7 [facility] Comment on above: Performed By: #### L AB294 ####Nailer Hand: JULI JONES ([phone])[facility])[address] [place] [address] Platelets (Bld) [#/Vol] 281 10*3/uL Normal 140-440 [facility] Comment on above: Performed By: #### L AB294 ####Nailer Hand: JULI JONES ([phone])[facility])[address] [place] [address] RBC (Bld) [#/Vol] 2.56 10*6/uL Low 3.80-5.20 [facility] Comment on above: Performed By: #### L AB294 ####Nailer Hand: JULI JONES ([phone])[facility])[address] [place] [address] WBC (Bld) [#/Vol] 6.7 10*3/uL Normal 3.6-10.7 [facility] Comment on above: Performed By: #### L AB294 ####Nailer Hand: JULI JONES ([phone])[facility])[address] [place] [address] CBC panel Auto (Bld)on 01-09 Erythrocyte distribution width (RBC) [Ratio] 16.3 % High 11.5 - 15.0 % [facility] Hematocrit (Bld) [Volume fraction] 26 % Low 35.0 - 47.0 % [facility] Hemoglobin (Bld) [Mass/Vol] 8 g/dL Low 11.7 - 16.0 g/dL [facility] Interpretation and review of laboratory results Abnormal [facility] MCH (RBC) [Entitic mass] 31.3 pg 26.0 - 34.0 pg [facility] MCHC (RBC) [Mass/Vol] 30.8 % 30.5 - 36.0 % [facility] MCV (RBC) [Entitic vol] 101.6 fL High 77.0 - 99.0 fL [facility] Platelet mean volume (Bld) [Entitic vol] 9.1 fL 9.0 - 12.7 fL [facility] Platelets (Bld) [#/Vol] 281 10*3/uL 140 - 440 10*3/uL [facility] RBC (Bld) [#/Vol] 2.56 10*6/uL Low 3.80 - 5.20 10*6/uL [facility] WBC (Bld) [#/Vol] 6.7 10*3/uL 3.6 - 10.7 10*3/uL [facility] Progress Noteon 01-09-2025 Progress Note Normal [facility] Progress Note Normal [facility] Progress Note Normal [facility] [id number] 01-08-2025 [id number] follow up: checked HENS, Level II still pending. Attempted to call [facility] DON again. DON didn't answer and vm is full, unable to leave a . . Normal [facility] [id number] Normal [facility] BASIC METABOLIC PANELon 05- Anion gap [Moles/Vol] 9 mmol/L Normal 3-13 [facility] Comment on above: Performed By: #### L AB15 ####Nailer Hand: JULI JONES ([phone])[facility] ([facility] Calcium [Mass/Vol] 8.5 mg/dL Normal 8.4-10.2 [facility] Comment on above: Performed By: #### L AB15 ####Nailer Hand: JULI JONES ([phone])[facility] ([facility])[address] [place] [address] Chloride [Moles/Vol] 104 mmol/L Normal 98-107 [facility] Comment on above: Performed By: #### L AB15 ####Nailer Hand: JULI JONES ([phone])[facility] ([facility])[address] [place] [address] CO2 [Moles/Vol] 21 mmol/L Low 22-29 [facility] Comment on above: Performed By: #### L AB15 ####Nailer Hand: JULI JONES ([phone])[facility])[address] [place] [address] Creatinine [Mass/Vol] 2.27 mg/dL High 0.57-1.11 [facility] Comment on above: Performed By: #### L AB15 ####Nailer Hand: JULI JONES ([phone])[facility] ([facility])[address] [place] [address] GLOMERULAR FILTRATION RATE ML/MIN/1.73 SQ M.PREDICTED 24.6 mL/min/1.73m*2 Low >60.0 [facility] Comment on above: Result Comment: Calc ulation based on the Chronic Kidney Disease Epidemiology Collaboration (CKD-EPI) equation refit without adjustment for race Performed By: #### L AB15 ####Nailer Hand: JULI JONES ([phone])[facility] ([facility])[address] [place] [address] Glucose [Mass/Vol] 82 mg/dL Normal 74-100 [facility] Comment on above: Performed By: #### L AB15 ####Nailer Hand: JULI JONES ([phone])[facility])[address] [place] [address] Potassium [Moles/Vol] 5.0 mmol/L Normal 3.5-5.1 [facility] Comment on above: Result Comment: [facility] potassium values may be up to 0.5 mmol/L lower than serum values. Performed By: #### L AB15 ####Nailer Hand: JULI JONES ([phone])[facility] ([facility])[address] [place] [address] Sodium [Moles/Vol] 134 mmol/L Low 136-145 [facility] Comment on above: Performed By: #### L AB15 ####Nailer Hand: JULI JONES ([phone])[facility] ([facility])[address] [place] [address] Urea nitrogen [Mass/Vol] 33 mg/dL High 9-23 [facility] Comment on above: Performed By: #### L AB15 ####Nailer Hand: JULI JONES ([phone])[facility] ([facility])[address] [place] [address] Basic metabolic 1998 panelon 01-08-2025 Anion gap [Moles/Vol] 9 mmol/L 3 - 13 mmol/L [facility] Calcium [Mass/Vol] 8.5 mg/dL 8.4 - 10. 2 mg/dL [facility] Chloride [Moles/Vol] 104 mmol/L 98 - 10 7 mmol/L [facility] CO2 [Moles/Vol] 21 mmol/L Low 22 - 29 mmol/L [facility] Creatinine [Mass/Vol] 2.27 mg/dL High 0.57 - 1.11 mg/dL [facility] GFR/1.73 sq M.predicted (S/P/Bld) [Vol rate/Area] 24.6 mL/min Low - PINF [facility] Comment on above: Calculation based on the Chronic Kidney Disease Epidemiology Collaboration (CKD-EPI) equation refit without adjustment for race Glucose [Mass/Vol] 82 mg/dL 74 - 100 mg/dL [facility] Interpretation and review of laboratory results Abnormal [facility] Potassium [Moles/Vol] 5 mmol/L 3.5 - 5.1 mmol/L [facility] Comment on above: Plasma potassium [place] ues may be up to 0.5 mmol/L lower than serum values. Sodium [Moles/Vol] 134 mmol/L Low 136 - 145 mmol/L [facility] Urea nitrogen [Mass/Vol] 33 mg/dL High 9 - 23 mg/dL [facility] CBC (HEMOGRAM)on 01-08-2025 Erythrocyte distribution width (RBC) [Ratio] 15.8 % High 11.5-15.0 [facility] Comment on above: Performed By: #### L [id number] ####Nailer Hand: JULI JONES ([phone])[facility])[address] [place] [address] Hematocrit (Bld) [Volume fraction] 24.7 % Low 35.0-47.0 [facility] Comment on above: Performed By: #### L [id number] ####Nailer Hand: JULI JONES ([phone])[facility])[address] [place] [address] Hemoglobin (Bld) [Mass/Vol] 7.9 g/dL Low 11.7-16.0 [facility] Comment on above: Performed By: #### L [id number] ####Nailer Hand: JULI JONES ([id number])[facility])[address] [place] [address] MCH (RBC) [Entitic mass] 31.5 pg Normal 26.0-34.0 [facility] Comment on above: Performed By: #### L [id number] ####Nailer Hand: JULI OJNES ([id number])[facility])[address] [place] [address] MCHC 32.0 % Normal 30.5-36.0 [facility] Comment on above: Performed By: #### L [id number] ####Nailer Hand: JULI JONES ([phone])[facility])[address] [place] [address] MCV (RBC) [Entitic vol] 98.4 fL Normal 77.0-99.0 [facility] Comment on above: Performed By: #### L [id number] ####Nailer Hand: JULI JONES ([phone])[facility])[address] [place] [address] Platelet mean volume (Bld) [Entitic vol] 8.9 fL Low 9.0-12.7 [facility] Comment on above: Performed By: #### L [id number] ####Nailer Hand: JULI JONES ([phone])[facility] ([facility])[address] [place] [address] Platelets (Bld) [#/Vol] 278 10*3/uL Normal 140-440 [facility] Comment on above: Performed By: #### L AB294 ####Nailer Hand: JULI JONES ([phone])[facility] ([facility])[address] [place] [address] RBC (Bld) [#/Vol] 2.51 10*6/uL Low 3.80-5.20 [facility] Comment on above: Performed By: #### L AB294 ####Nailer Hand: JULI JONES ([phone])[facility] ([facility])[address] [place] [address] WBC (Bld) [#/Vol] 7.5 10*3/uL Normal 3.6-10.7 [facility] Comment on above: Performed By: #### L [id number] ####Nailer Hand: JULI JONES ([phone])[facility])[address] [place] [address] CBC panel Auto (Bld)on 01-08 Erythrocyte distribution width (RBC) [Ratio] 15.8 % High 11.5 - 15.0 % [facility] Hematocrit (Bld) [Volume fraction] 24.7 % Low 35.0 - 47.0 % [facility] Hemoglobin (Bld) [Mass/Vol] 7.9 g/dL Low 11.7 - 16.0 g/dL [facility] Interpretation and review of laboratory results Abnormal [facility] MCH (RBC) [Entitic mass] 31.5 pg 26.0 - 34.0 pg [facility] MCHC (RBC) [Mass/Vol] 32 % 30.5 - 36.0 % [facility] MCV (RBC) [Entitic vol] 98.4 fL 77.0 - 99.0 fL [facility] Platelet mean volume (Bld) [Entitic vol] 8.9 fL Low 9.0 - 12.7 fL [facility] Platelets (Bld) [#/Vol] 278 10*3/uL 140 - 440 10*3/uL [facility] RBC (Bld) [#/Vol] 2.51 10*6/uL Low 3.80 - 5.20 10*6/uL [facility] WBC (Bld) [#/Vol] 7.5 10*3/uL 3.6 - 10.7 10*3/uL [facility] Progress Noteon 01-08-2025 Progress Note Normal [facility] Progress Note Normal [facility] Progress Note Normal [facility] BASIC METABOLIC PANELon 12-14 Anion gap [Moles/Vol] 7 mmol/L Normal 3-13 [facility] Comment on above: Performed By: #### L AB15 ####Nailer Hand: JULI JONES ([phone])[facility])[address] [place] [address] Calcium [Mass/Vol] 8.4 mg/dL Normal 8.4-10.2 [facility] Comment on above: Performed By: #### L AB15 ####Nailer Hand: JULI JONES ([phone])[facility] ([facility])[address] [place] [address] Chloride [Moles/Vol] 103 mmol/L Normal 98-107 [facility] Comment on above: Performed By: #### L AB15 ####Nailer Hand: JULI JONES ([phone])[facility] ([facility])[address] [place] [address] [place] CO2 [Moles/Vol] 22 mmol/L Normal 22-29 [facility] Comment on above: Performed By: #### L AB15 ####Nailer Hand: JULI JONES ([phone])[facility] ([facility])[address] [place] [address] Creatinine [Mass/Vol] 2.37 mg/dL High 0.57-1.11 [facility] Comment on above: Performed By: #### L AB15 ####Nailer Hand: JULI JONES ([phone])[facility] [place] [address] GLOMERULAR FILTRATION RATE ML/MIN/1.73 SQ M.PREDICTED 23.4 mL/min/1.73m*2 Low >60.0 [facility] Comment on above: Result Comment: Calc ulation based on the Chronic Kidney Disease Epidemiology Collaboration (CKD-EPI) equation refit without adjustment for race Performed By: #### L AB15 ####Nailer Hand: JULI JONES ([phone])[facility])[address] [place] [address] Glucose [Mass/Vol] 82 mg/dL Normal 74-100 [facility] Comment on above: Performed By: #### L AB15 ####Nailer Hand: JULI JONES ([phone])[address] Potassium [Moles/Vol] 4.8 mmol/L Normal 3.5-5.1 [facility] Comment on above: Result Comment: [facility] potassium values may be up to 0.5 mmol/L lower than serum values. Performed By: #### L AB15 ####Nailer Hand: JULI JONES ([phone])[facility])[address] [place] [address] Sodium [Moles/Vol] 132 mmol/L Low 136-145 [facility] Comment on above: Performed By: #### L AB15 ####Nailer Hand: JULI [id number])[address] Urea nitrogen [Mass/Vol] 32 mg/dL High 9-23 [facility] Comment on above: Performed By: #### L AB15 ####Nailer Hand: JULI [id number])[address] Basic metabolic 1998 panelon 01-07-2025 Anion gap [Moles/Vol] 7 mmol/L 3 - 13 mmol/L [facility] Calcium [Mass/Vol] 8.4 mg/dL 8.4 - 10. 2 mg/dL [facility] Chloride [Moles/Vol] 103 mmol/L 98 - 10 7 mmol/L [facility] CO2 [Moles/Vol] 22 mmol/L 22 - 29 mmol/L [facility] Creatinine [Mass/Vol] 2.37 mg/dL High 0.57 - 1.11 mg/dL [facility] GFR/1.73 sq M.predicted (S/P/Bld) [Vol rate/Area] 23.4 mL/min Low - PINF [facility] Comment on above: Calculation based on the Chronic Kidney Disease Epidemiology Collaboration (CKD-EPI) equation refit without adjustment for race Glucose [Mass/Vol] 82 mg/dL 74 - 100 mg/dL [facility] Interpretation and review of laboratory results Abnormal [facility] Potassium [Moles/Vol] 4.8 mmol/L 3.5 - 5.1 mmol/L [facility] Comment on above: Plasma potassium batsheva ues may be up to 0.5 mmol/L lower than serum values. Sodium [Moles/Vol] 132 mmol/L Low 136 - 145 mmol/L [facility] Urea nitrogen [Mass/Vol] 32 mg/dL High 9 - 23 mg/dL [facility] CBC (HEMOGRAM)on 01-07-2025 Erythrocyte distribution width (RBC) [Ratio] 15.5 % High 11.5-15.0 [facility] Comment on above: Performed By: #### L [id number] ####Nailer Hand: JULI JONES ([id number])[address] Hematocrit (Bld) [Volume fraction] 24.9 % Low 35.0-47.0 [facility] Comment on above: Performed By: #### L AB294 ####Nailer Hand: JULI JONES ([phone])[address] Hemoglobin (Bld) [Mass/Vol] 7.9 g/dL Low 11.7-16.0 [facility] Comment on above: Performed By: #### L AB294 ####Nailer Hand: JULI JONES ([phone])[facility])[address] [place] [address] MCH (RBC) [Entitic mass] 31.6 pg Normal 26.0-34.0 [facility] Comment on above: Performed By: #### L AB294 ####Nailer Hand: JULI JONES ([phone])[facility] ([facility])[address] [place] [address] MCHC 31.7 % Normal 30.5-36.0 [facility] Comment on above: Performed By: #### L AB294 ####Nailer Hand: JULI JONES ([phone])[facility] ([facility])[address] [place] [address] MCV (RBC) [Entitic vol] 99.6 fL High 77.0-99.0 [facility] Comment on above: Performed By: #### L AB294 ####Nailer Hand: JULI JONES ([id number])[facility] ([facility])[address] [place] [address] Platelet mean volume (Bld) [Entitic vol] 9.0 fL Normal 9.0-12.7 [facility] Comment on above: Performed By: #### L AB294 ####Nailer Hand: JULI JONES ([phone])[facility] ([facility])[address] [place] [address] Platelets (Bld) [#/Vol] 282 10*3/uL Normal 140-440 [facility] Comment on above: Performed By: #### L AB294 ####Nailer Hand: JULI JONES ([phone])[facility] ([facility])[address] [place] [address] RBC (Bld) [#/Vol] 2.50 10*6/uL Low 3.80-5.20 [facility] Comment on above: Performed By: #### L AB294 ####Nailer Hand: JULI JONES ([phone])[facility])[address] [place] [address] WBC (Bld) [#/Vol] 7.8 10*3/uL Normal 3.6-10.7 [facility] Comment on above: Performed By: #### L [id number] ####Nailer Hand: JULI JONES ([phone])[facility] ([facility])[address] [place] [address] CBC panel Auto (Bld)on 01-07 Erythrocyte distribution width (RBC) [Ratio] 15.5 % High 11.5 - 15.0 % [facility] Hematocrit (Bld) [Volume fraction] 24.9 % Low 35.0 - 47.0 % [facility] Hemoglobin (Bld) [Mass/Vol] 7.9 g/dL Low 11.7 - 16.0 g/dL [facility] Interpretation and review of laboratory results Abnormal [facility] MCH (RBC) [Entitic mass] 31.6 pg 26.0 - 34.0 pg [facility] MCHC (RBC) [Mass/Vol] 31.7 % 30.5 - 36.0 % [facility] MCV (RBC) [Entitic vol] 99.6 fL High 77.0 - 99.0 fL [facility] Platelet mean volume (Bld) [Entitic vol] 9 fL 9.0 - 12.7 fL [facility] Platelets (Bld) [#/Vol] 282 10*3/uL 140 - 440 10*3/uL [facility] RBC (Bld) [#/Vol] 2.5 10*6/uL Low 3.80 - 5.20 10*6/uL [facility] WBC (Bld) [#/Vol] 7.8 10*3/uL 3.6 - 10.7 10*3/uL [facility] Laboratory - Chemistry and C hemistry - challengeon 01-07-2025 Glucose [Mass/Vol] 129 mg/dL High 70 - 100 mg/dL [facility] Glucose [Mass/Vol] 99 mg/dL 70 - 100 mg/dL [facility] Glucose [Mass/Vol] 108 mg/dL High 70 - 100 mg/dL [facility] No Panel Informationon 01-07 Interpretation and review of laboratory results Abnormal [facility] Performed by: [facility], [address] [place] [address] CLIA ID: [id number] [facility] Interpretation and review of laboratory results Normal [facility] Performed by: [facility], [address] [facility] [address] CLIA ID: [id number] [facility] Interpretation and review of laboratory results Abnormal [facility] Performed by: [facility], [address] [address] CLIA ID: [id number] [facility] Progress Noteon 01-07-2025 Progress Note Normal [facility] 30on 01-06-2025 30 Normal [facility] 30 Continue to monitor skin. Normal [facility] BASIC METABOLIC PANELon 05- Anion gap [Moles/Vol] 9 mmol/L Normal 3-13 [facility] Comment on above: Performed By: #### L AB15 ####Nailer Hand: JULI JONES ([phone])[facility] ([facility])[address] [place] [address] Calcium [Mass/Vol] 8.3 mg/dL Low 8.4-10.2 [facility] Comment on above: Performed By: #### L AB15 ####Nailer Hand: JULI JONES ([phone])[facility])[address] [place] [address] [place] Chloride [Moles/Vol] 101 mmol/L Normal 98-107 [facility] Comment on above: Performed By: #### L AB15 ####Nailer Hand: JULI JONES ([phone])[facility] ([facility])[address] [place] [address] [place] CO2 [Moles/Vol] 22 mmol/L Normal 22-29 [facility] Comment on above: Performed By: #### L AB15 ####Nailer Hand: JULI JONES ([phone])[facility] ([facility])[address] [place] [address] [place] Creatinine [Mass/Vol] 2.19 mg/dL High 0.57-1.11 [facility] Comment on above: Performed By: #### L AB15 ####Nailer Hand: JULI JONES ([phone])[facility] [address] GLOMERULAR FILTRATION RATE ML/MIN/1.73 SQ M.PREDICTED 25.7 mL/min/1.73m*2 Low >60.0 [facility] Comment on above: Result Comment: Calc ulation based on the Chronic Kidney Disease Epidemiology Collaboration (CKD-EPI) equation refit without adjustment for race Performed By: #### L AB15 ####Nailer Hand: JULI JONES ([phone])[facility])[address] [place] [address] Glucose [Mass/Vol] 79 mg/dL Normal 74-100 [facility] Comment on above: Performed By: #### L AB15 ####Nailer Hand: JULI JONES ([phone])[address] Potassium [Moles/Vol] 5.1 mmol/L Normal 3.5-5.1 [facility] Comment on above: Result Comment: [facility] potassium values may be up to 0.5 mmol/L lower than serum values. Performed By: #### L AB15 ####Nailer Hand: JULI JONES ([phone])[facility])[address] [place] [address] Sodium [Moles/Vol] 132 mmol/L Low 136-145 [facility] Comment on above: Performed By: #### L AB15 ####Nailer Hand: JULI JONES ([phone])[address] Urea nitrogen [Mass/Vol] 30 mg/dL High 9-23 [facility] Comment on above: Performed By: #### L AB15 ####Nailer Hand: JULI JONES ([phone])[address] Basic metabolic 1998 panelon 01-06-2025 Anion gap [Moles/Vol] 9 mmol/L 3 - 13 mmol/L [facility] Calcium [Mass/Vol] 8.3 mg/dL Low 8.4 - 10. 2 mg/dL [facility] Chloride [Moles/Vol] 101 mmol/L 98 - 10 7 mmol/L [facility] CO2 [Moles/Vol] 22 mmol/L 22 - 29 mmol/L [facility] Creatinine [Mass/Vol] 2.19 mg/dL High 0.57 - 1.11 mg/dL [facility] GFR/1.73 sq M.predicted (S/P/Bld) [Vol rate/Area] 25.7 mL/min Low - PINF [facility] Comment on above: Calculation based on the Chronic Kidney Disease Epidemiology Collaboration (CKD-EPI) equation refit without adjustment for race Glucose [Mass/Vol] 79 mg/dL 74 - 100 mg/dL [facility] Interpretation and review of laboratory results Abnormal [facility] Potassium [Moles/Vol] 5.1 mmol/L 3.5 - 5.1 mmol/L [facility] Comment on above: Plasma potassium batsheva ues may be up to 0.5 mmol/L lower than serum values. Sodium [Moles/Vol] 132 mmol/L Low 136 - 145 mmol/L [facility] Urea nitrogen [Mass/Vol] 30 mg/dL High 9 - 23 mg/dL [facility] CBC (HEMOGRAM)on 01-06-2025 Erythrocyte distribution width (RBC) [Ratio] 15.0 % Normal 11.5-15.0 [facility] Comment on above: Performed By: #### L [id number] ####Nailer Hand: JULI JONES ([phone])[address] Hematocrit (Bld) [Volume fraction] 23.3 % Low 35.0-47.0 [facility] Comment on above: Performed By: #### L AB294 ####Nailer Hand: JULI JONES ([phone])[address] Hemoglobin (Bld) [Mass/Vol] 7.4 g/dL Low 11.7-16.0 [facility] Comment on above: Performed By: #### L AB294 ####Nailer Hand: JULI JONES ([phone])[facility])[address] [place] [address] MCH (RBC) [Entitic mass] 31.4 pg Normal 26.0-34.0 [facility] Comment on above: Performed By: #### L AB294 ####Nailer Hand: JULI JONES ([phone])[facility] ([facility])[address] [place] [address] MCHC 31.8 % Normal 30.5-36.0 [facility] Comment on above: Performed By: #### L AB294 ####Nailer Hand: JULI JONES ([phone])[facility] ([facility])[address] [place] [address] MCV (RBC) [Entitic vol] 98.7 fL Normal 77.0-99.0 [facility] Comment on above: Performed By: #### L AB294 ####Nailer Hand: JULI JONES ([phone])[facility] ([facility])[address] [place] [address] Platelet mean volume (Bld) [Entitic vol] 9.1 fL Normal 9.0-12.7 [facility] Comment on above: Performed By: #### L AB294 ####Nailer Hand: JULI JONES ([phone])[facility] ([facility])[address] [place] [address] Platelets (Bld) [#/Vol] 303 10*3/uL Normal 140-440 [facility] Comment on above: Performed By: #### L AB294 ####Nailer Hand: JULI JONES ([phone])[facility] ([facility])[address] [place] [address] RBC (Bld) [#/Vol] 2.36 10*6/uL Low 3.80-5.20 [facility] Comment on above: Performed By: #### L AB294 ####Nailer Hand: JULI JONES ([phone])[facility] ([facility])[address] [place] [address] WBC (Bld) [#/Vol] 8.5 10*3/uL Normal 3.6-10.7 [facility] Comment on above: Performed By: #### L [id number] ####Nailer Hand: JULI JONES ([phone])[facility] ([address] CBC panel Auto (Bld)on 01-06 Erythrocyte distribution width (RBC) [Ratio] 15 % 11.5 - 15.0 % [facility] Hematocrit (Bld) [Volume fraction] 23.3 % Low 35.0 - 47.0 % [facility] Hemoglobin (Bld) [Mass/Vol] 7.4 g/dL Low 11.7 - 16.0 g/dL [facility] Interpretation and review of laboratory results Abnormal [facility] MCH (RBC) [Entitic mass] 31.4 pg 26.0 - 34.0 pg [facility] MCHC (RBC) [Mass/Vol] 31.8 % 30.5 - 36.0 % [facility] MCV (RBC) [Entitic vol] 98.7 fL 77.0 - 99.0 fL [facility] Platelet mean volume (Bld) [Entitic vol] 9.1 fL 9.0 - 12.7 fL [facility] Platelets (Bld) [#/Vol] 303 10*3/uL 140 - 440 10*3/uL [facility] RBC (Bld) [#/Vol] 2.36 10*6/uL Low 3.80 - 5.20 10*6/uL [facility] WBC (Bld) [#/Vol] 8.5 10*3/uL 3.6 - 10.7 10*3/uL [facility] Nursing Noteon 01-06-2025 Nursing Note Rn gave nightly meds , incluing prns requested. Head to toe assessment done. Pt requested a diet gignger it was given nothing else needed. Bed in lowest position, brakes locked, bed alarm on and call light in reach. Normal [facility] Nursing Note Normal [facility] Progress Noteon 01-06-2025 Progress Note Normal [facility] 30on 01-05-2025 30 Normal [facility] 30 Normal [facility] [id number] 01-05-2025 [id number] [employer] asked to review HENS for return of Level II Pasrr. PAULINA states that it was referred on 01/02/25 with no results back at this time. [facility] notified. [facility] Nursing Noteon 01-05-2025 Nursing Note Pt asked for water t o be refilled and a diet kathy kun. [facility] Nursing Note Rn passed nightly me ds and talked to pt about getting blood work done tonight and pt agreed. [facility] Nursing Note RN went into room to introduce self to pt, update white board and go over nightly meds. Pt was awake laying in bed and okay with all meds. Pt needed nothing else at this time. Bed in lowest position, brakes locked and call light with in reach, [facility] Nursing Note Patient refused to b e turned to apply ET mix. Patient educated on the importance of ET mix. [facility] Nursing Note Patient refused bloo dwork for dayshift RN. Provider notified. [facility] Nursing Note Patient refusing mor ron blood work. Provider notified. Lea Clarke, IDALIA [facility] Progress Noteon 01-05-2025 Progress Note [facility] 30on 01-04-2025 30 [facility] [id number] 01-04-2025 [id number] [facility] Nursing Noteon 01-04-2025 Nursing Note Patient refusing mor ron blood work. Provider notified. [facility] Progress Noteon 01-04-2025 Progress Note [facility] Progress Note [facility] [id number] 01-03-2025 [id number] [facility] Nursing Noteon 01-03-2025 Nursing Note Patient refusing mor ron blood work. Provider notified. [facility] Progress Noteon 01-03-2025 Progress Note [facility] Progress Note [facility] [id number] 01-02-2025 [id number] [facility] BASIC METABOLIC PANELon 05-2 Anion gap [Moles/Vol] 9 mmol/L Normal 3-13 [facility] Comment on above: Performed By: #### L AB15 ####Nailer Hand: JULI JONES ([phone])[facility] ([facility])[address] [place] [address] Calcium [Mass/Vol] 8.0 mg/dL Low 8.4-10.2 [facility] Comment on above: Performed By: #### L AB15 ####Nailer Hand: JULI JONES ([phone])[facility] ([facility])[address] [place] [address] Chloride [Moles/Vol] 102 mmol/L Normal 98-107 [facility] Comment on above: Performed By: #### L AB15 ####Nailer Hand: JULI JONES ([phone])[facility] ([facility])[address] [place] [address] CO2 [Moles/Vol] 21 mmol/L Low 22-29 [facility] Comment on above: Performed By: #### L AB15 ####Nailer Hand: JULI JONES ([phone])[facility] ([facility])[address] [place] [address] Creatinine [Mass/Vol] 2.30 mg/dL High 0.57-1.11 [facility] Comment on above: Performed By: #### L AB15 ####Nailer Hand: JULI JONES ([phone])[facility] ([facility])[address] [place] [address] [place] GLOMERULAR FILTRATION RATE ML/MIN/1.73 SQ M.PREDICTED 24.2 mL/min/1.73m*2 Low >60.0 [facility] Comment on above: Result Comment: Calc ulation based on the Chronic Kidney Disease Epidemiology Collaboration (CKD-EPI) equation refit without adjustment for race Performed By: #### L AB15 ####Nailer Hand: JULI JONES ([phone])[facility] ([facility])[address] [place] [address] [place] Glucose [Mass/Vol] 75 mg/dL Normal 74-100 [facility] Comment on above: Performed By: #### L AB15 ####Nailer Hand: JULI JONES ([phone])[facility])[address] [place] [address] Potassium [Moles/Vol] 4.2 mmol/L Normal 3.5-5.1 [facility] Comment on above: Result Comment: [facility] potassium values may be up to 0.5 mmol/L lower than serum values. Performed By: #### L AB15 ####Nailer Hand: JULI JONES ([phone])[facility])[address] [place] [address] Sodium [Moles/Vol] 132 mmol/L Low 136-145 [facility] Comment on above: Performed By: #### L AB15 ####Nailer Hand: JULI JONES ([phone])[facility] ([facility])[address] [place] [address] Urea nitrogen [Mass/Vol] 14 mg/dL Normal 9-23 [facility] Comment on above: Performed By: #### L AB15 ####Nailer Hand: JLUI JONES ([phone])[facility])[address] [place] [address] Basic metabolic 1998 panelon 01-02-2025 Anion gap [Moles/Vol] 9 mmol/L 3 - 13 mmol/L [facility] Calcium [Mass/Vol] 8 mg/dL Low 8.4 - 10. 2 mg/dL [facility] Chloride [Moles/Vol] 102 mmol/L 98 - 10 7 mmol/L [facility] CO2 [Moles/Vol] 21 mmol/L Low 22 - 29 mmol/L [facility] Creatinine [Mass/Vol] 2.3 mg/dL High 0.57 - 1.11 mg/dL [facility] GFR/1.73 sq M.predicted (S/P/Bld) [Vol rate/Area] 24.2 mL/min Low - PINF [facility] Comment on above: Calculation based on the Chronic Kidney Disease Epidemiology Collaboration (CKD-EPI) equation refit without adjustment for race Glucose [Mass/Vol] 75 mg/dL 74 - 100 mg/dL [facility] Interpretation and review of laboratory results Abnormal [facility] Potassium [Moles/Vol] 4.2 mmol/L 3.5 - 5.1 mmol/L [facility] Comment on above: Plasma potassium batsheva ues may be up to 0.5 mmol/L lower than serum values. Sodium [Moles/Vol] 132 mmol/L Low 136 - 145 mmol/L [facility] Urea nitrogen [Mass/Vol] 14 mg/dL 9 - 23 mg/dL [facility] CBC (HEMOGRAM)on 01-02-2025 Erythrocyte distribution width (RBC) [Ratio] 14.1 % Normal 11.5-15.0 [facility] Comment on above: Performed By: #### L [id number] ####Nailer Hand: JULI JONES ([phone])[address] Hematocrit (Bld) [Volume fraction] 21.9 % Low 35.0-47.0 [facility] Comment on above: Performed By: #### L [id number] ####Nailer Hand: JULI JONES ([phone])[facility])[address] [place] [address] Hemoglobin (Bld) [Mass/Vol] 7.1 g/dL Low 11.7-16.0 [facility] Comment on above: Performed By: #### L [id number] ####Nailer Hand: JULI JONES ([phone])[address] MCH (RBC) [Entitic mass] 31.1 pg Normal 26.0-34.0 [facility] Comment on above: Performed By: #### L [id number] ####Nailer Hand: JULI JONES ([phone])[facility])[address] [place] [address] MCHC 32.4 % Normal 30.5-36.0 [facility] Comment on above: Performed By: #### L [id number] ####Nailer Hand: JULI JONES ([phone])[facility])[address] [place] [address] MCV (RBC) [Entitic vol] 96.1 fL Normal 77.0-99.0 [facility] Comment on above: Performed By: #### L [id number] ####Nailer Hand: JULI JONES ([phone])[facility])[address] [place] [address] Platelet mean volume (Bld) [Entitic vol] 8.7 fL Low 9.0-12.7 [facility] Comment on above: Performed By: #### L [id number] ####Nailer Hand: JULI JONES ([phone])[facility] ([facility])[address] [place] [address] Platelets (Bld) [#/Vol] 303 10*3/uL Normal 140-440 [facility] Comment on above: Performed By: #### L [id number] ####Nailer Hand: JULI JONES ([phone])[facility] ([facility])[address] [place] [address] RBC (Bld) [#/Vol] 2.28 10*6/uL Low 3.80-5.20 [facility] Comment on above: Performed By: #### L [id number] ####Nailer Hand: JULI JONES ([phone])[facility] ([facility])[address] [place] [address] WBC (Bld) [#/Vol] 7.5 10*3/uL Normal 3.6-10.7 [facility] Comment on above: Performed By: #### L [id number] ####Nailer Hand: JULI JONES ([phone])[facility] ([facility])[address] [place] [address] CBC panel Auto (Bld)on 01-02 Erythrocyte distribution width (RBC) [Ratio] 14.1 % 11.5 - 15.0 % [facility] Hematocrit (Bld) [Volume fraction] 21.9 % Low 35.0 - 47.0 % [facility] Hemoglobin (Bld) [Mass/Vol] 7.1 g/dL Low 11.7 - 16.0 g/dL [facility] Interpretation and review of laboratory results Abnormal [facility] MCH (RBC) [Entitic mass] 31.1 pg 26.0 - 34.0 pg [facility] MCHC (RBC) [Mass/Vol] 32.4 % 30.5 - 36.0 % [facility] MCV (RBC) [Entitic vol] 96.1 fL 77.0 - 99.0 fL [facility] Platelet mean volume (Bld) [Entitic vol] 8.7 fL Low 9.0 - 12.7 fL [facility] Platelets (Bld) [#/Vol] 303 10*3/uL 140 - 440 10*3/uL [facility] RBC (Bld) [#/Vol] 2.28 10*6/uL Low 3.80 - 5.20 10*6/uL [facility] WBC (Bld) [#/Vol] 7.5 10*3/uL 3.6 - 10.7 10*3/uL [facility] Health Consulton 01-02-2025 Consult Normal [facility] IRON AND TIBCon 01-02-2025 IRON BINDING CAPACITY 146 ug/dL Low 250-450 [facility] Comment on above: Performed By: #### L [id number] ####Nailer Hand: JULI JONES ([phone])[address] IRON SATURATION 25.3 % Normal 20.0-50.0 [facility] Comment on above: Performed By: #### L [id number] ####Nailer Hand: JULI JONES ([phone])[address] IRON, TOTAL 37 ug/dL Low 50-170 [facility] Comment on above: Performed By: #### L [id number] ####Nailer Hand: JULI JONES ([phone])[address] Iron and Iron binding capaci ty panelon 01-02-2025 Interpretation and review of laboratory results Abnormal [facility] Iron [Mass/Vol] 37 ug/dL Low 50 - 170 ug/dL [facility] Iron binding capacity [Mass/Vol] 146 ug/dL Low 250 - 450 ug/dL [facility] Iron saturation [Mass fraction] 25.3 % 20.0 - 50.0 % [facility] Laboratory - Drug toxicology on 01-02-2025 lamoTRIgine [Mass/Vol] 9.4 [facility] Comment on above: This test was developed and its analytical performance characteristics have been determined by [employer] [place], [place]. It has not been cleared or approved by the U.S. Food and Drug Administration. This assay has been validated pursuant to the CLIA regulations and is used for clinical purposes. Test Performed by [facility], [facility], [address] [place], [place] Santhosh Murrieta M.D., Ph.D., Director of Laboratories , [place] [id number] Laboratory - Microbiology an d Antimicrobial susceptibilityOrdered By: Britany Chowdhury on 01-02-2025 C. auris ITS2 gene PAULINA+probe Ql (Unsp spec) Not detected Not Detected [facility] Laboratory - Microbiology an d Antimicrobial susceptibilityOrdered By: Renee Jackson on 01-02-2025 A. baumannii DNA PAULINA+probe Ql (Unsp spec) Not detected Not Detected [facility] No Panel Informationon 01-02 [facility] No Panel InformationOrdered By: Britany Chowdhury on 01-02-2025 Interpretation and review of laboratory results Normal [facility] A negative result do es not rule out infection or colonization with Jah auris. The real-time PCR assay to detect Jah auris DNA was developed and validated by the [facility] of Hygiene. Jah auris culture (if appropriate) was developed by the [facility] and its performance characteristics established by the [facility] Hy[facility]. These tests have not been cleared or approved by the U.S. Food and Drug Administration. [facility] No Panel InformationOrdered By: Renee Jackson on 01-02-2025 Interpretation and review of laboratory results Normal [facility] Carbapenem resistant Acinetobacter baumannii Colonization Culture Culture negative for carbapenem resistant Acinetobacter baumannii. Testing performed by: [facility] Communicable Disease Division [address] [place] [id number] [facility] Nursing Noteon 01-02-2025 Nursing Note Pt pulled out iv, st ated she didn't want it any more, secure chatted clinical nurse occupational medicine [phone] Dr. Sullivan responded okay to leave out and check with day team Normal [facility] Progress Noteon 01-02-2025 Progress Note Normal [facility] 30on 01-01-2025 30 Normal [facility] [id number] 01-01-2025 [id number] Normal [facility] [id number] Normal [facility] 36on 01-01-2025 36 Normal [facility] Basic metabolic 1998 panelon 01-01-2025 Anion gap [Moles/Vol] 9 mmol/L 3 - 13 mmol/L [facility] Calcium [Mass/Vol] 8 mg/dL Low 8.4 - 10. 2 mg/dL [facility] Chloride [Moles/Vol] 101 mmol/L 98 - 10 7 mmol/L [facility] CO2 [Moles/Vol] 22 mmol/L 22 - 29 mmol/L [facility] Creatinine [Mass/Vol] 2.46 mg/dL High 0.57 - 1.11 mg/dL [facility] GFR/1.73 sq M.predicted (S/P/Bld) [Vol rate/Area] 22.4 mL/min Low - PINF [facility] Comment on above: Calculation based on the Chronic Kidney Disease Epidemiology Collaboration (CKD-EPI) equation refit without adjustment for race Glucose [Mass/Vol] 76 mg/dL 74 - 100 mg/dL [facility] Interpretation and review of laboratory results Abnormal [facility] Potassium [Moles/Vol] 4.3 mmol/L 3.5 - 5.1 mmol/L [facility] Comment on above: Plasma potassium batsheva ues may be up to 0.5 mmol/L lower than serum values. Sodium [Moles/Vol] 132 mmol/L Low 136 - 145 mmol/L [facility] Urea nitrogen [Mass/Vol] 16 mg/dL 9 - 23 mg/dL [facility] CBC panel Auto (Bld)on 01-01 Erythrocyte distribution width (RBC) [Ratio] 13.9 % 11.5 - 15.0 % [facility] Hematocrit (Bld) [Volume fraction] 22.7 % Low 35.0 - 47.0 % [facility] Hemoglobin (Bld) [Mass/Vol] 7.2 g/dL Low 11.7 - 16.0 g/dL [facility] Interpretation and review of laboratory results Abnormal [facility] MCH (RBC) [Entitic mass] 30.4 pg 26.0 - 34.0 pg [facility] MCHC (RBC) [Mass/Vol] 31.7 % 30.5 - 36.0 % [facility] MCV (RBC) [Entitic vol] 95.8 fL 77.0 - 99.0 fL [facility] Platelet mean volume (Bld) [Entitic vol] 8.8 fL Low 9.0 - 12.7 fL [facility] Platelets (Bld) [#/Vol] 318 10*3/uL 140 - 440 10*3/uL [facility] RBC (Bld) [#/Vol] 2.37 10*6/uL Low 3.80 - 5.20 10*6/uL [facility] WBC (Bld) [#/Vol] 8.5 10*3/uL 3.6 - 10.7 10*3/uL [facility] Nursing Noteon 01-01-2025 Nursing Note Patient did not allo w RN to turn her to look at her wounds during morning assessment. Sacral and L posterior wounds documented initially by ED nurse. Wound care consult placed. Normal [facility] Progress Noteon 01-01-2025 Progress Note Normal [facility] Progress Note Normal [facility] Progress Note Normal [facility] 30on 12-31-2024 30 Normal [facility] [id number] 12-31-2024 [id number] Normal [facility] ACINETOBACTER BAUMANNII PCRo n 12-31-2024 ACINETOBACTER BAUMANNII PCR Normal [facility] Comment on above: Performed By: #### L [id number] ####[facility] ([facility])[address] CHRISTINA HALL [address] [place] [address] BASIC METABOLIC PANELon 12-13 Anion gap [Moles/Vol] 9 mmol/L Normal 3-13 [facility] Comment on above: Performed By: #### L [id number] ####Nailer Hand: JULI JONES ([id number])[facility] ([address] Calcium [Mass/Vol] 8.0 mg/dL Low 8.4-10.2 [facility] Comment on above: Performed By: #### L AB15 ####Nailer Hand: JULI JONES ([phone])[facility])[address] [place] [address] Chloride [Moles/Vol] 101 mmol/L Normal 98-107 [facility] Comment on above: Performed By: #### L AB15 ####Nailer Hand: JULI JONES ([phone])[facility] ([facility])[address] [place] [address] CO2 [Moles/Vol] 22 mmol/L Normal 22-29 [facility] Comment on above: Performed By: #### L AB15 ####Nailer Hand: JULI JOENS ([phone])[facility] ([facility])[address] [place] [address] Creatinine [Mass/Vol] 2.46 mg/dL High 0.57-1.11 [facility] Comment on above: Performed By: #### L AB15 ####Nailer Hand: JULI JONES ([phone])[facility] ([facility])[address] [place] [address] GLOMERULAR FILTRATION RATE ML/MIN/1.73 SQ M.PREDICTED 22.4 mL/min/1.73m*2 Low >60.0 [facility] Comment on above: Result Comment: Calc ulation based on the Chronic Kidney Disease Epidemiology Collaboration (CKD-EPI) equation refit without adjustment for race Performed By: #### L [id number] ####Nailer Hand: JULI JONES ([phone])[facility] ([facility])[address] [place] [address] [place] Glucose [Mass/Vol] 76 mg/dL Normal 74-100 [facility] Comment on above: Performed By: #### L AB15 ####Nailer Hand: JULI JONES ([phone])[facility] ([facility])[address] [place] [address] Potassium [Moles/Vol] 4.3 mmol/L Normal 3.5-5.1 [facility] Comment on above: Result Comment: [facility] potassium values may be up to 0.5 mmol/L lower than serum values. Performed By: #### L AB15 ####Nailer Hand: JULI JONES ([phone])[facility])[address] [place] [address] Sodium [Moles/Vol] 132 mmol/L Low 136-145 [facility] Comment on above: Performed By: #### L AB15 ####Nailer Hand: JULI JONES ([phone])[facility])[address] [place] [address] Urea nitrogen [Mass/Vol] 16 mg/dL Normal 9-23 [facility] Comment on above: Performed By: #### L AB15 ####Nailer Hand: JULI JONES ([phone])[facility])[address] [place] [address] JAH AURIS SCREENon 12-31 JAH AURIS SCREEN Normal [facility] Comment on above: Performed By: #### L [id number] ####[facility] ([facility])[address] [place] [address] DR CHRISTINA HALL [address] [place] [address] CBC (HEMOGRAM)on 12-31-2024 Erythrocyte distribution width (RBC) [Ratio] 13.9 % Normal 11.5-15.0 [facility] Comment on above: Performed By: #### L [id number] ####Nailer Hand: JULI JONES ([phone])[facility])[address] [place] [address] Hematocrit (Bld) [Volume fraction] 22.7 % Low 35.0-47.0 [facility] Comment on above: Performed By: #### L [id number] ####Nailer Hand: JULI JONES ([phone])[facility])[address] [place] [address] Hemoglobin (Bld) [Mass/Vol] 7.2 g/dL Low 11.7-16.0 [facility] Comment on above: Performed By: #### L [id number] ####Nailer Hand: JULI JONES ([phone])[facility])[address] [place] [address] MCH (RBC) [Entitic mass] 30.4 pg Normal 26.0-34.0 [facility] Comment on above: Performed By: #### L [id number] ####Nailer Hand: JULI JONES ([phone])[facility])[address] [place] [address] MCHC 31.7 % Normal 30.5-36.0 [facility] Comment on above: Performed By: #### L [id number] ####Nailer Hand: JULI JONES ([phone])[facility])[address] [place] [address] MCV (RBC) [Entitic vol] 95.8 fL Normal 77.0-99.0 [facility] Comment on above: Performed By: #### L [id number] ####Nailer Hand: JULI JONES ([phone])[facility])[address] [place] [address] Platelet mean volume (Bld) [Entitic vol] 8.8 fL Low 9.0-12.7 [facility] Comment on above: Performed By: #### L [id number] ####Nailer Hand: JULI JONES ([phone])[facility])[address] [place] [address] Platelets (Bld) [#/Vol] 318 10*3/uL Normal 140-440 [facility] Comment on above: Performed By: #### L [id number] ####Nailer Hand: JULI JONES ([phone])[facility])[address] [place] [address] RBC (Bld) [#/Vol] 2.37 10*6/uL Low 3.80-5.20 [facility] Comment on above: Performed By: #### L [id number] ####Nailer Hand: JULI JONES ([phone])[facility])[address] [place] [address] WBC (Bld) [#/Vol] 8.5 10*3/uL Normal 3.6-10.7 [facility] Comment on above: Performed By: #### L [id number] ####Nailer Hand: JULI JONES ([phone])[facility])[address] [place] [address] Progress Noteon 12-31-2024 Progress Note Normal [facility] Progress Note Normal [facility] Progress Note Normal [facility] 25-hydroxyvitamin D3 [Mass/V ol]on 12-30-2024 Interpretation and review of laboratory results Normal [facility] Target concentration : 30 - 40 ng/mL; toxicity seen at concentrations >100 ng/mL Less than 20 ng/mL: Indicative of Vit D deficiency Test performed by [employer], measuring Total Vitamin D, not individual fractions. [facility] BLOOD GAS ARTERIALon 025 AMOUNT OF OXYGEN 21 Normal [facility] Comment on above: Performed By: #### L [id number] ####Nailer Hand: JULI JONES ([phone])[facility] ([facility])[address] [place] [address] Base excess Calc (Bld) [Moles/Vol] 3.4 mmol/L High -3.0-3.0 [facility] Comment on above: Performed By: #### L [id number] ####Nailer Hand: JULI JONES ([phone])[facility] ([facility])[address] [place] [address] CO2 [Moles/Vol] 26.5 mmol/L Normal 23.0-27.0 [facility] Comment on above: Performed By: #### L [id number] ####Nailer Hand: JULI JONES ([phone])[facility])[address] [place] [address] HCO3 (Bld) [Moles/Vol] 25.5 mmol/L High 21.0-25.0 [facility] Comment on above: Performed By: #### L [id number] ####Nailer Hand: JULI JONES ([phone])[facility])[address] [place] [address] HEMOGLOBIN BLOOD GAS Normal [facility] Comment on above: Result Comment: Unab le to perform hemoglobin due to microsample. Performed By: #### L [id number] ####Nailer Hand: JULI JONES ([phone])[facility])[address] [place] [address] OXYGEN SATURATION (%) IN ARTERIAL BLOOD 99.2 % Normal 95.0-100.0 [facility] Comment on above: Performed By: #### L [id number] ####Nailer Hand: JULI JONES ([phone])[facility])[address] [place] [address] PCO2 ARTERIAL 31.9 mm Hg Low >35.0-<45. 0 [facility] Comment on above: Performed By: #### L [id number] ####Nailer Hand: JULI JONES ([phone])[facility])[address] [place] [address] PH ARTERIAL 7.521 High 7.350-7.45 0 [facility] Comment on above: Performed By: #### L [id number] ####Nailer Hand: JULI JONES ([phone])[facility])[address] [place] [address] PO2 ARTERIAL 156.7 mm Hg High 80.0-100.0 [facility] Comment on above: Performed By: #### L [id number] ####Nailer Hand: JULI JONES ([phone])[facility])[address] [place] [address] SOURCE OF OXYGEN None (Room Air) Normal [facility] Comment on above: Performed By: #### L [id number] ####Nailer Hand: JULI JONES ([phone])[facility])[address] [place] [address] CBC W Auto Differential pane l (Bld)on 12-30-2024 Basophils (Bld) [#/Vol] 0.1 10*3/uL 0.0 - 0.2 10*3/uL [facility] Basophils/100 WBC (Bld) 0.6 % 0.0 - 2.0 % [facility] Eosinophils (Bld) [#/Vol] 0.2 10*3/uL 0.0 - 0.5 10*3/uL [facility] Eosinophils/100 WBC (Bld) 2.5 % 0.0 - 6.0 % [facility] Erythrocyte distribution width (RBC) [Ratio] 14.1 % 11.5 - 15.0 % [facility] Hematocrit (Bld) [Volume fraction] 24.4 % Low 35.0 - 47.0 % [facility] Hemoglobin (Bld) [Mass/Vol] 7.7 g/dL Low 11.7 - 16.0 g/dL [facility] Immature granulocytes (Bld) [#/Vol] 0.2 10*3/uL High NINF - 0.1 10*3/uL [facility] Immature granulocytes/100 WBC (Bld) 2.4 % High 0.0 - 2.0 % [facility] Interpretation and review of laboratory results Abnormal [facility] Lymphocytes (Bld) [#/Vol] 1.8 10*3/uL 1.0 - 4.3 10*3/uL [facility] Lymphocytes/100 WBC (Bld) 22.4 % 15.0 - 45.0 % [facility] MCH (RBC) [Entitic mass] 30.9 pg 26.0 - 34.0 pg [facility] MCHC (RBC) [Mass/Vol] 31.6 % 30.5 - 36.0 % [facility] MCV (RBC) [Entitic vol] 98 fL 77.0 - 99.0 fL [facility] Monocytes (Bld) [#/Vol] 0.9 10*3/uL 0.0 - 0.9 10*3/uL [facility] Monocytes/100 WBC (Bld) 10.9 % 5.0 - 13.0 % [facility] Neutrophils (Bld) [#/Vol] 4.8 10*3/uL 1.8 - 7.5 10*3/uL [facility] Neutrophils/100 WBC (Bld) 61.2 % 38.0 - 82.0 % [facility] Nucleated RBC/100 WBC (Bld) [Ratio] 0 % [facility] Platelet mean volume (Bld) [Entitic vol] 8.6 fL Low 9.0 - 12.7 fL [facility] Platelets (Bld) [#/Vol] 268 10*3/uL 140 - 440 10*3/uL [facility] RBC (Bld) [#/Vol] 2.49 10*6/uL Low 3.80 - 5.20 10*6/uL [facility] WBC (Bld) [#/Vol] 7.9 10*3/uL 3.6 - 10.7 10*3/uL [facility] CBC WITH AUTO DIFFERENTIALon 12-30-2024 Basophils (Bld) [#/Vol] 0.1 10*3/uL Normal 0.0-0.2 [facility] Comment on above: Performed By: #### L [id number] ####Nailer Hand: JULI JONES ([phone])[facility])[address] [place] [address] Basophils/100 WBC (Bld) 0.6 % Normal 0.0-2.0 [facility] Comment on above: Performed By: #### L [id number] ####Nailer Hand: JULI JONES ([phone])[facility])[address] [place] [address] Eosinophils (Bld) [#/Vol] 0.2 10*3/uL Normal 0.0-0.5 [facility] Comment on above: Performed By: #### L [id number] ####Nailer Hand: JULI JONES ([phone])[facility])[address] [place] [address] Eosinophils/100 WBC (Bld) 2.5 % Normal 0.0-6.0 [facility] Comment on above: Performed By: #### L [id number] ####Nailer Hand: JULI JONES ([phone])[facility])[address] [place] [address] Erythrocyte distribution width (RBC) [Ratio] 14.1 % Normal 11.5-15.0 [facility] Comment on above: Performed By: #### L [id number] ####Nailer Hand: JULI JONES ([phone])[facility])[address] [place] [address] Hematocrit (Bld) [Volume fraction] 24.4 % Low 35.0-47.0 [facility] Comment on above: Performed By: #### L [id number] ####Nailer Hand: JULI JONES ([phone])[facility])[address] [place] [address] Hemoglobin (Bld) [Mass/Vol] 7.7 g/dL Low 11.7-16.0 [facility] Comment on above: Performed By: #### L [id number] ####Nailer Hand: JULI JONES ([phone])[facility])[address] [place] [address] IMMATURE GRANS % 2.4 % High 0.0-2.0 [facility] Comment on above: Performed By: #### L [id number] ####Nailer Hand: JULI JONES ([phone])[facility])[address] [place] [address] IMMATURE GRANS ABSOLUTE 0.2 10*3/uL High <0.1 [facility] Comment on above: Performed By: #### L [id number] ####Nailer Hand: JULI JONES ([phone])[facility])[address] [place] [address] Lymphocytes (Bld) [#/Vol] 1.8 10*3/uL Normal 1.0-4.3 [facility] Comment on above: Performed By: #### L [id number] ####Nailer Hand: JULI JONES ([phone])[facility])[address] [place] [address] [place] Lymphocytes/100 WBC (Bld) 22.4 % Normal 15.0-45.0 [facility] Comment on above: Performed By: #### L [id number] ####Nailer Hand: JULI JONES ([phone])[facility])[address] [place] [address] MCH (RBC) [Entitic mass] 30.9 pg Normal 26.0-34.0 [facility] Comment on above: Performed By: #### L [id number] ####Nailer Hand: JULI JONES ([id number])[facility])[address] [place] [address] MCHC 31.6 % Normal 30.5-36.0 [facility] Comment on above: Performed By: #### L [id number] ####Nailer Hand: JULI JONES ([id number])[facility] ([facility])[address] [place] [address] MCV (RBC) [Entitic vol] 98.0 fL Normal 77.0-99.0 [facility] Comment on above: Performed By: #### L [id number] ####Nailer Hand: JULI JONES ([phone])[facility])[address] [place] [address] Monocytes (Bld) [#/Vol] 0.9 10*3/uL Normal 0.0-0.9 [facility] Comment on above: Performed By: #### L [id number] ####Nailer Hand: JULI JONES ([phone])[facility])[address] [place] [address] Monocytes/100 WBC (Bld) 10.9 % Normal 5.0-13.0 [facility] Comment on above: Performed By: #### L [id number] ####Nailer Hand: JULI JONES ([phone])[facility])[address] [place] [address] NEUTROPHILS ABSOLUTE 4.8 10*3/uL Normal 1.8-7.5 [facility] Comment on above: Performed By: #### L [id number] ####Nailer Hand: JULI JONES ([phone])[facility])[address] [place] [address] Neutrophils/100 WBC (Bld) 61.2 % Normal 38.0-82.0 [facility] Comment on above: Performed By: #### L [id number] ####Nailer Hand: JULI JONES ([phone])[facility])[address] [place] [address] NRBC 0.0 /100 WBCs Normal 0.0-2.0 [facility] Comment on above: Performed By: #### L [id number] ####Nailer Hand: JULI JONES ([phone])[facility])[address] [place] [address] Platelet mean volume (Bld) [Entitic vol] 8.6 fL Low 9.0-12.7 [facility] Comment on above: Performed By: #### L [id number] ####Nailer Hand: JULI JONES ([phone])[facility] ([facility])[address] [place] [address] Platelets (Bld) [#/Vol] 268 10*3/uL Normal 140-440 [facility] Comment on above: Performed By: #### L [id number] ####Nailer Hand: JULI JONES ([phone])[facility])[address] [place] [address] RBC (Bld) [#/Vol] 2.49 10*6/uL Low 3.80-5.20 [facility] Comment on above: Performed By: #### L [id number] ####Nailer Hand: JULI JONES ([phone])[facility])[address] [place] [address] WBC (Bld) [#/Vol] 7.9 10*3/uL Normal 3.6-10.7 [facility] Comment on above: Performed By: #### L [id number] ####Nailer Hand: JULI JONES ([phone])[facility])[address] [place] [address] COMPLETE URINALYSIS WITH REF ANN TO CULTUREon 12-30-2024 BACTERIA (#/HPF) IN URINE Few Abnormal Negative [facility] Comment on above: Performed By: #### L [id number] ####Nailer Hand: JULI JONES ([phone])[facility] ([facility])[address] [place] [address] BILIRUBIN, TOTAL PRESENCE IN URINE Negative Normal Negative [facility] Comment on above: Performed By: #### L [id number] ####Nailer Hand: JULI JONES ([phone])[facility] ([facility])[address] [place] [address] Clarity (U) Clear Normal Clear [facility] Comment on above: Performed By: #### L [id number] ####Nailer Hand: JULI JONES ([phone])[facility])[address] [place] [address] Color (U) Colorless Normal Lt. Yellow [facility] Comment on above: Performed By: #### L [id number] ####Nailer Hand: JULI JONES ([phone])[facility])[address] [place] [address] GLUCOSE (MG/DL) IN URINE Normal Normal Normal (<70) [facility] Comment on above: Performed By: #### L [id number] ####Nailer Hand: JULI JONES ([phone])[facility])[address] [place] [address] HEMOGLOBIN PRESENCE IN URINE Negative Normal Negative [facility] Comment on above: Performed By: #### L [id number] ####Nailer Hand: JULI JONES ([phone])[facility] ([facility])[address] [place] [address] HYALINE CASTS (#/LPF) IN URINE SEDIMENT BY MICROSCOPY Negative Normal Negative [facility] Comment on above: Performed By: #### L [id number] ####Nailer Hand: JULI JONES ([phone])[facility])[address] [place] [address] Ketones Ql (U) Negative Normal Negative [facility] Comment on above: Performed By: #### L [id number] ####Nailer Hand: JULI JONES ([phone])[facility] ([facility])[address] [place] [address] LEUKOCYTE ESTERASE PRESENCE IN URINE BY TEST STRIP Negative Normal Negative [facility] Comment on above: Performed By: #### L [id number] ####Nailer Hand: JULI JONES ([phone])[facility] ([facility])[address] [place] [address] NITRITE PRESENCE IN URINE Negative Normal Negative [facility] Comment on above: Performed By: #### L [id number] ####Nailer Hand: JULI JONES ([phone])[facility])[address] [place] [address] pH (U) 7.0 [pH] Normal 5.0-8.0 [facility] Comment on above: Performed By: #### L [id number] ####Nailer Hand: JULI JONES ([phone])[facility] ([facility])[address] [place] [address] Protein (U) [Mass/Vol] 20 mg/dL Abnormal Negative [facility] Comment on above: Performed By: #### L [id number] ####Nailer Hand: JULI JONES ([phone])[facility])[address] [place] [address] RBC (#/HPF) IN URINE SEDIMENT 0-2 Normal 0-2 [facility] Comment on above: Performed By: #### L [id number] ####Nailer Hand: JULI JONES ([phone])[facility])[address] [place] [address] Specific gravity (U) [Rel density] 1.005 Normal 1.005-1.03 0 [facility] Comment on above: Result Comment: HARRIET Mayfield COMMENTS:A specimen with <=10 WBC is not consistent with inflammation. This specimen will not reflex to a urine culture. Performed By: #### L [id number] ####Nailer Hand: JULI JONES ([phone])[facility] ([facility])[address] [place] [address] SQUAMOUS EPITHELIAL CELLS (#/HPF) IN URINE SEDIMENT 0-2 Normal 3-5 [facility] Comment on above: Performed By: #### L [id number] ####Nailer Hand: JULI JONES ([phone])[facility] ([facility])[address] [place] [address] UROBILINOGEN (MG/DL) IN URINE Normal Normal Normal (0-1) [facility] Comment on above: Performed By: #### L [id number] ####Nailer Hand: JULI JONES ([phone])[facility] ([facility])[address] [place] [address] WBC (LEUKOCYTE) (#/HPF) IN URINE SEDIMENT 0-2 Normal 0-5 [facility] Comment on above: Performed By: #### L [id number] ####Nailer Hand: JULI JONES ([phone])[facility] ([facility])[address] [place] [address] COMPREHENSIVE METABOLIC PANE Nestor 12-30-2024 Albumin [Mass/Vol] 2.6 g/dL Low 3.5-5.0 [facility] Comment on above: Performed By: #### L [id number] ####Nailer Hand: JULI JONES ([phone])[facility] ([facility])[address] [place] [address] ALP [Catalytic activity/Vol] 54 U/L Normal 40-150 [facility] Comment on above: Performed By: #### L [id number] ####Nailer Hand: JULI JONES ([phone])[facility] ([facility])[address] [place] [address] ALT [Catalytic activity/Vol] U/L Normal <30 [facility] Comment on above: Performed By: #### L [id number] ####Nailer Hand: JULI JONES ([phone])[facility] ([facility])[address] [place] [address] Anion gap [Moles/Vol] 8 mmol/L Normal 3-13 [facility] Comment on above: Performed By: #### L [id number] ####Nailer Hand: JULI JONES ([phone])[facility] ([facility] [place] [address] [place] AST [Catalytic activity/Vol] 22 U/L Normal <34 [facility] Comment on above: Performed By: #### L [id number] ####Nailer Hand: JULI JONES ([phone])[facility] [place] [address] [place] Bilirubin [Mass/Vol] 0.2 mg/dL Normal <1.2 [facility] Comment on above: Performed By: #### L [id number] ####Nailer Hand: JULI JONES ([phone])[facility] ([facility])[address] [place] [address] Calcium [Mass/Vol] 8.5 mg/dL Normal 8.4-10.2 [facility] Comment on above: Performed By: #### L [id number] ####Nailer Hand: JULI JONES ([phone])[facility] ([facility])[address] [place] [address] [place] Chloride [Moles/Vol] 103 mmol/L Normal 98-107 [facility] Comment on above: Performed By: #### L [id number] ####Nailer Hand: JULI JONES ([phone])[facility] ([facility])[address] [place] [address] [place] CO2 [Moles/Vol] 24 mmol/L Normal 22-29 [facility] Comment on above: Performed By: #### L [id number] ####Nailer Hand: JULI JONES ([phone])[facility] ([facility])[address] [place] [address] [place] Creatinine [Mass/Vol] 2.72 mg/dL High 0.57-1.11 [facility] Comment on above: Performed By: #### L [id number] ####Nailer Hand: JULI JONES ([phone])[facility] ([facility])[address] [place] [address] [place] GLOMERULAR FILTRATION RATE ML/MIN/1.73 SQ M.PREDICTED 19.8 mL/min/1.73m*2 Low >60.0 [facility] Comment on above: Result Comment: Calc ulation based on the Chronic Kidney Disease Epidemiology Collaboration (CKD-EPI) equation refit without adjustment for race Performed By: #### L [id number] ####Nailer Hand: JULI JONES ([phone])[facility] ([facility])[address] [place] [address] Glucose [Mass/Vol] 91 mg/dL Normal 74-100 [facility] Comment on above: Performed By: #### L [id number] ####Nailer Hand: JULI JONES ([phone])[facility])[address] [place] [address] Potassium [Moles/Vol] 4.0 mmol/L Normal 3.5-5.1 [facility] Comment on above: Result Comment: [facility] potassium values may be up to 0.5 mmol/L lower than serum values. Performed By: #### L [id number] ####Nailer Hand: JULI JONES ([phone])[facility] ([facility])[address] [place] [address] Protein [Mass/Vol] 6.5 g/dL Normal 6.4-8.3 [facility] Comment on above: Performed By: #### L [id number] ####Nailer Hand: JULI JONES ([phone])[facility])[address] [place] [address] Sodium [Moles/Vol] 135 mmol/L Low 136-145 [facility] Comment on above: Performed By: #### L [id number] ####Nailer Hand: JULI JONES ([phone])[facility])[address] [place] [address] [place] Urea nitrogen [Mass/Vol] 15 mg/dL Normal 9-23 [facility] Comment on above: Performed By: #### L [id number] ####Nailer Hand: JULI JONES ([phone])[facility])[address] [place] [address] CT HEAD WO IV CONTRASTon CT HEAD WO IV CONTRAST Normal [facility] CT Head WO contraston 2024 The etiology [...] Electronically Signed Date/Time: 12/30/2024 6:45 PM EDT [facility] Patient Name: JESSY WEN : 1965 Exam Date/Time: 12/30/2024 18:23 Procedure: CT HEAD [...] the paranasal sinuses shows no air-fluid levels. [facility] Dinesh Reed MD - 12/30/2024 Patient Name: JESSY MCKEON : 1965 Exam Date/Time: 12/30/2024 18:23 Procedure: CT HEAD [...] Electronically Signed Date/Time: 12/30/2024 6:45 PM EDT [facility] Study observation (narrative) [facility] CT Head WO contrastOrdered B y: Dinesh Reed on 12-30-2024 [facility] Work Phone: Comprehensive metabolic 1998 panelon 12-30-2024 Albumin [Mass/Vol] 2.6 g/dL Low 3.5 - 5.0 g/dL [facility] ALP [Catalytic activity/Vol] 54 U/L 40 - 150 U/L [facility] ALT [Catalytic activity/Vol] U/L NINF - 30 U/L [facility] Anion gap [Moles/Vol] 8 mmol/L 3 - 13 mmol/L [facility] AST [Catalytic activity/Vol] 22 U/L BANNERF - 34 U/L [facility] Bilirubin [Mass/Vol] 0.2 mg/dL BANNERF - 1.2 mg/dL [facility] Calcium [Mass/Vol] 8.5 mg/dL 8.4 - 10. 2 mg/dL [facility] Chloride [Moles/Vol] 103 mmol/L 98 - 10 7 mmol/L [facility] CO2 [Moles/Vol] 24 mmol/L 22 - 29 mmol/L [facility] Creatinine [Mass/Vol] 2.72 mg/dL High 0.57 - 1.11 mg/dL [facility] GFR/1.73 sq M.predicted (S/P/Bld) [Vol rate/Area] 19.8 mL/min Low - PINF [facility] Comment on above: Calculation based on the Chronic Kidney Disease Epidemiology Collaboration (CKD-EPI) equation refit without adjustment for race Glucose [Mass/Vol] 91 mg/dL 74 - 100 mg/dL [facility] Interpretation and review of laboratory results Abnormal [facility] Potassium [Moles/Vol] 4 mmol/L 3.5 - 5.1 mmol/L [facility] Comment on above: Plasma potassium batshvea ues may be up to 0.5 mmol/L lower than serum values. Protein [Mass/Vol] 6.5 g/dL 6.4 - 8.3 g/dL [facility] Sodium [Moles/Vol] 135 mmol/L Low 136 - 145 mmol/L [facility] Urea nitrogen [Mass/Vol] 15 mg/dL 9 - 23 mg/dL [facility] ED Nursing Noteon 12-30-2024 ED Nursing Note Meal tray delivered at this time Normal [facility] ED Nursing Note Pt refused ABG from RT at this time. Shakir BLANCHARD notified. Trauma float and resident unavailable for US IV placement. Per storage battery charger, ok to send to floor if no IV placement ordered. Normal [facility] ED Nursing Note Two RN's attempted t o get IV access with no success. Pt will need US IV. Blood work obtained. Normal [facility] ED Nursing Note 1L of urine emptied from pt canister with purewick at this time. Normal [facility] ED Nursing Note Pt only urinated int o bedpan. Pt did not have a BM Normal [facility] ED Provider Noteon ED Provider Note Normal [facility] LAMOTRIGINE LEVEL (BKR QUEST )on 12-30-2024 QUEST LAMOTRIGINE 9.4 mcg/mL Normal 2.5-15.0 [facility] Comment on above: Result Comment: This test was developed and its analytical performancecharacteristics have been determined by [employer] [place], [place]. It hasnot been cleared or approved by the U.S. Food and DrugAdministration. This assay has been validated pursuantto the CLIA regulations and is used for clinicalpurposes.Test Performed by [employer],[address] [place] [id number] Murritea M.D., Ph.D., Director of [phone], CLIA [id number] Performed By: #### L [id number] ####[facility] ([facility])[id number] [place], [place] [facility] Laboratory - Chemistry and C hemistry - challengeOrdered By: Meera Tucker on 12-30-2024 Base excess Calc (Bld) [Moles/Vol] 3.4 mmol/L High -3.0 - 3.0 mmol/L [facility] CO2 (Bld) [Partial pressure] 31.9 mm[Hg] Low - PINF [facility] CO2 [Moles/Vol] 26.5 mmol/L 23.0 - 27.0 mmol/L [facility] HCO3 (Bld) [Moles/Vol] 25.5 mmol/L High 21.0 - 25.0 mmol/L [facility] Oxygen (Bld) [Partial pressure] 156.7 mm[Hg] High [facility] pH (Bld) 7.521 [pH] High 7.350 - 7.450 [facility] Laboratory - Chemistry and C hemistry - challengeon 12-30-2024 25-hydroxyvitamin D3 [Mass/Vol] 30 ng/mL 20 - 50 ng/mL [facility] TSH Qn 40.09 m[IU]/L High [facility] Laboratory - Drug toxicology on 12-30-2024 Valproate [Mass/Vol] 48 ug/mL Low 50 - 12 5 ug/mL [facility] No Panel InformationOrdered By: Meera Tucker on 12-30-2024 Amount Of Oxygen 21 [facility] Hgb, blood gas [facility] Comment on above: Unable to perform he mogrobert due to microsample. Interpretation and review of laboratory results Abnormal [facility] Source Of Oxygen None (Room Air) [facility] No Panel Informationon 12-30 Interpretation and review of laboratory results Abnormal [facility] Toxicity is seen at concentrations >175 ug/mL [facility] THYROID STIMULATING HORMONEo n 12-30-2024 THYROID STIMULATING HORMONE 40.09 uIU/mL High 0.35-4.94 [facility] Comment on above: Performed By: #### L [id number], [id number], LAB24 ####Nailer Hand: JULI JONES ([phone])[facility] ([facility])[address] TSH Qnon 12-30-2024 Interpretation and review of laboratory results Abnormal [facility] Urinalysis complete panel (U )Ordered By: Estela Whelan on 12-30-2024 Bacteria LM.HPF (Urine sed) [#/Area] Few Abnormal Negative /HPF [facility] Bilirubin Ql (U) Negative Negative mg/dL [facility] Clarity (U) Clear Clear [facility] Color (U) Colorless Lt. Yellow [facility] Epithelial cells.squamous LM.HPF (Urine sed) [#/Area] 0-2 [facility] Glucose Ql (U) Normal Normal (<70) mg/dL [facility] Hemoglobin Ql (U) Negative Negative mg/dL [facility] Hyaline casts Auto (Urine sed) [#/Area] Negative Negative /LPF [facility] Interpretation and review of laboratory results Abnormal [facility] Ketones (U) [Mass/Vol] Negative Negat jayne mg/dL [facility] Leukocyte esterase Test strip Ql (U) Negative Negative Devang/uL [facility] Nitrite Ql (U) Negative Negative [facility] pH (U) 7.0 [pH] 5.0 - 8.0 pH [facility] Protein (U) [Mass/Vol] 20 mg/dL Abnormal Negative [facility] RBC LM.HPF (Urine sed) [#/Area] 0-2 [facility] Specific gravity (U) [Rel density] 1.005 1.005 - 1.030 [facility] Urobilinogen (U) [Mass/Vol] Normal Normal (0-1) mg/dL [facility] WBC LM.HPF (Urine sed) [#/Area] 0-2 [facility] A specimen with <=10 WBC is not consistent with inflammation. This specimen will not reflex to a urine culture. [facility] VALPROIC ACID TOTALon 2024 VALPROIC ACID 48 ug/mL Low 50-125 [facility] Comment on above: Result Comment: HARRIET Mayfield COMMENTS:Toxicity is seen at concentrations >175 ug/mL Performed By: #### L [id number], [id number], LAB24 ####Nailer Hand: JULI JONSE ([phone])[facility] ([facility])[address] [place] [address] [place] VITAMIN D DEFICIENCY SCREENI NG (VIT D 25)on 12-30-2024 VIT D 25-OH, TOTAL 30 ng/mL Normal See comment [facility] Comment on above: Result Comment: HARRIET Mayfield COMMENTS:Target concentration: 30 - 40 ng/mL; toxicity seen at concentrations >100 ng/mLLess than 20 ng/mL: Indicative of Vit D deficiencyTest performed by [employer], measuring Total Vitamin D, not individual fractions. Performed By: #### L AB129, [id number], LAB24 ####Nailer Hand: JULI JONES ([phone])[facility] ([facility])[address] [place] [address] XR Knee - left 4 Viewson Severe tricompartmen scott osteoarthritis of the knee. Report Dictated on Electronically Signed By: Harvey Rayo MD Electronically Signed Date/Time: 12/30/2024 12:05 PM EDT [facility] Patient Name: JESSY WEN : [...] There is no other soft tissue abnormality. [facility] Harvey Rayo MD - 12/30/2024 Patient Name: JESSY MCKEON : 1965 Exam [...] Electronically Signed Date/Time: 12/30/2024 12:05 PM EDT [facility] Radiology Study observation (narrative) [facility] XR Knee - left 4 ViewsOrdere d By: Harvey Rayo on 12-30-2024 [facility] Work Phone: ED Nursing Noteon 12-29-2024 ED Nursing Note Pt. Arrived to ED vi a EMS with complaint of EMS reported fall at facility with bumped head. Pt. Stated no changes since ED visit during previous shift with departure on 12/29/2024. Normal [facility] ED Nursing Note Celsa arrived for tra nsport. Hand off report given to medics. Normal [facility] ED Nursing Note Notified physician o f patients skin concerns on the back of her left thigh. Media collected. Normal [facility] ED Nursing Note Normal [facility] ED Nursing Note Normal [facility] ED Nursing Note Normal [facility] ED Provider Noteon ED Provider Note Normal [facility] XR Foot - left 2 Viewson Possible fracture of the fourth proximal metatarsal. Severe hallux valgus deformity and soft tissue swelling. Report Dictated on Electronically Signed By: Dario Torres MD Electronically Signed Date/Time: 12/29/2024 1:28 AM EDT [facility] [employer] [facility] Patient Name: JESSY WEN : 1965 [...] identified. Diffuse soft tissue swelling is noted. 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 Normal [facility] ED Nursing Note Attempted to call [facility] 3 times with no answer to give information about patients discharge. Normal [facility] ED Nursing Note Splint applied by provider. Normal [facility] ED Nursing Note Pt to ED after a fal l, patient was trying to get to her chair and reports falling twice, does state she hit her head, and is complaining of left hand pain, denies LOC. PT was also recently dx w/ UTI and is on amoxicillin Normal [facility] ED Provider Noteon ED Provider Note [facility] ED Provider Note Normal [facility] No Panel Informationon 12-28 1. No acute osseous abnormality. 2. Postsurgical and degenerative change. Report Dictated on Electronically Signed By: Daniel Field MD Electronically Signed Date/Time: 12/28/2024 10:05 PM T [facility] Arslan Kirkland MD 12/28/2024 5:59 AM Splint Application Performed by: Arslan Kirkland MD Authorized by: Arslan Kirkland MD Consent: Consent obtained: Verbal Consent given by: Patient Stendal protocol: Patient identity confirmed: Verbally with patient [...] no immediate complications Post-procedure imaging: not applicable [facility] No Panel InformationOrdered By: Daniel Field on 12-28-2024 [facility] Work Phone: XR Femur - left 2 [...] left knee joint. Soft tissues grossly unremarkable. [facility] Daniel Field MD - 12/28/2024 Patient [...] Electronically Signed Date/Time: 12/28/2024 10:05 PM EDT [facility] Radiology Study observation (narrative) [employer] XR Hand - left 3 Viewson Fracture of the head of the fifth metacarpal. Osteoarthritis. Report Dictated on Electronically Signed By: Dario Torres MD Electronically Signed Date/Time: 12/28/2024 6:11 AM EDT [facility] [employer] SYSTEM Patient Name: JESSY WEN : 1965 [...] is identified. There is soft tissue swelling. [facility] Dario Torres MD - 12/28/2024 Patient Name: [facility]KEON : 1965 [id number] Exam Date/Time: 12/28/2024 05:15 Procedure: XR HAND [...] Electronically Signed Date/Time: 12/28/2024 6:11 AM EDT [facility] Study observation (narrative) [facility] X[facility] Hand - left 3 ViewsOrdere d By: Dario Torres on 12-28-2024 [facility] Work Phone: XR Pelvis 1 or 2 [...] left knee joint. Soft tissues grossly unremarkable. [facility] Daniel Field MD - 12/28/2024 Patient [...] Electronically Signed Date/Time: 12/28/2024 10:05 PM EDT [facility] Radiology Study observation (narrative) [facility] XR Tibia and Fibula - left 2 Viewson 12-28-2024 1. No acute osseous abnormality. Report Dictated on Electronically Signed By: Daniel Field MD Electronically Signed Date/Time: 12/28/2024 10:06 PM EDT [facility] [employer] SYSTEM Patient Name: JESSY WEN : 1965 Exam Date/Time: 12/28/2024 21:12 Procedure: XR TIBIA FIBULA 2 VIEWS LEFT Ordering Provider: PATTON NISHIT Reason For Exam: left leg pain LEFT TIBIA AND FIBULA 2 VIEWS CLINICAL INDICATION: left leg pain TECHNIQUE: 2 views of the left tibia and fibula. COMPARISON: None. FINDINGS: No acute fracture or dislocation. Soft tissues grossly unremarkable. [facility] Daniel Field MD - 12/28/2024 Patient [...] Signed Date/Time: 12/28/2024 10:06 PM EDT [facility] Radiology Study observation (narrative) [facility] 36on 12-25-2024 36 Normal [facility] COMPLETE URINALYSIS WITH REF ANN TO CULTUREon 12-25-2024 AMORPHOUS URATES (#/HPF) IN URINE Few Abnormal Negative [facility] Comment on above: Performed By: #### L [id number] ####Nailer Hand: JULI JONES ([phone])[facility] (SWRLAB)[address] [place] [address]#### [id number] ####Nailer Hand: JULI JONES ([phone])[facility] (SACLAB)[address] [place] [address] BACTERIA (#/HPF) IN URINE Moderate Abnormal Negative [facility] Comment on above: Performed By: #### L [id number] ####Nailer Hand: JULI JONES ([phone])[facility]IE [facility] (SWRLAB)[address] [place] [address] [place]#### [id number] ####Nailer Hand: JULI JONES ([phone])[facility] (SACLAB)[address] [place] [address] BILIRUBIN, TOTAL PRESENCE IN URINE Negative Normal Negative [facility] Comment on above: Performed By: #### L [id number] ####Nailer Hand: JULI JONES ([phone])[facility] (SWRLAB)[address] [place] [address] [place]#### [id number] ####Nailer Hand: JULI JONES ([phone])[facility] (SACLAB)[address] [place] [address] Clarity (U) Turbid Abnormal Clear [facility] Comment on above: Performed By: #### L [id number] ####Nailer Hand: JULI JONES ([phone])[facility] (SWRLAB)[address] [place] [address] [place]#### [id number] ####Nailer Hand: JULI JONES ([phone])[facility] (SACLAB)[address] [place] [address] Color (U) Light Yellow Normal Lt. Yellow [facility] Comment on above: Performed By: #### L [id number] ####Nailer Hand: JULI JONES ([phone])[facility]ITALJohanny WIGGINS [facility] (SWRLAB)[address] [place] [address] [place]#### [id number] ####Nailer Hand: JULI JONES ([phone])[facility] (SACLAB)[address] [place] [address] GLUCOSE (MG/DL) IN URINE Normal Normal Normal (<70) [facility] Comment on above: Performed By: #### L [id number] ####Nailer Hand: JULI JONES ([phone])[facility] (SWRLAB)[address] [place] [address] [place]#### [id number] ####Nailer Hand: JULI JONES ([phone])[facility] (SACLAB)[address] [place] [address] HEMOGLOBIN PRESENCE IN URINE 0.1 mg/dL Abnormal Negative [facility] Comment on above: Performed By: #### L [id number] ####Nailer Hand: JULI JONES ([phone])[facility] (SWRLAB)[address] [place] [address] [place]#### [id number] ####Nailer Hand: JULI JONES ([phone])[facility] (SACLAB)[address] [place] [address] Ketones Ql (U) Negative Normal Negative [facility] Comment on above: Performed By: #### L [id number] ####Nailer Hand: JULI JONES ([phone])[facility] (SWRLAB)[address] [place] [address] [place]#### [id number] ####Nailer Hand: JULI JONES ([phone])[facility] (SACLAB)[address] [place] [address] LEUKOCYTE ESTERASE PRESENCE IN URINE BY TEST STRIP 500 Devang/uL Abnormal Negative [facility] Comment on above: Performed By: #### L [id number] ####Nailer Hand: JULI JONES ([phone])[facility] (SWRLAB)[address] [place] [address] [place]#### [id number] ####Nailer Hand: JULI JONES ([id number])[facility] (SACLAB)[address] [place] [address] NITRITE PRESENCE IN URINE Negative Normal Negative [facility] Comment on above: Performed By: #### L [id number] ####Nailer Hand: JULI JONES ([phone])[facility] (SWRLAB)[address] [place] [address]#### [id number] ####Nailer Hand: JULI JONES ([phone])[facility] ([facility])[address] [place] [address] NON-SQUAMOUS EPITHELIAL (#/HPF) IN URINE 0-2 Abnormal Negative [facility] Comment on above: Performed By: #### L [id number] ####Nailer Hand: JULI JONES ([phone])[facility] (SWRLAB)[address] [place] [address]#### [id number] ####Nailer Hand: JULI JONES ([phone])[facility] ([facility])[address] [place] [address] pH (U) 6.5 [pH] Normal 5.0-8.0 [facility] Comment on above: Performed By: #### L [id number] ####Nailer Hand: JULI JONES ([id number])[facility] (SWRLAB)[address] [place] [address]#### [id number] ####Nailer Hand: JULI JONES ([phone])[facility] ([facility])[address] [place] [address] Protein (U) [Mass/Vol] 50 mg/dL Abnormal Negative [facility] Comment on above: Performed By: #### L [id number] ####Nailer Hand: JULI JONES ([phone])[facility] (SWRLAB)[address] [place] [address] [place]#### [id number] ####Nailer Hand: JULI JONES ([phone])[facility] ([facility])[address] [place] [address] [place] RBC (#/HPF) IN URINE SEDIMENT 11-25 Abnormal 0-2 [facility] Comment on above: Performed By: #### L [id number] ####Nailer Hand: JULI JONES ([id number])[facility] (SWRLAB)[address] [place] [address]#### [id number] ####Nailer Hand: JULI JONES ([id number])[facility])[address] [place] [address] Specific gravity (U) [Rel density] <1.005 Low 1.005-1.03 0 [facility] Comment on above: Result Comment: HARRIET [place] COMMENTS:A specimen with <=10 WBC is not consistent with inflammation. This specimen will not reflex to a urine culture.This specimen has been reflexed to urine culture. Performed By: #### L [id number] ####Nailer Hand: JULI JONES ([phone])[facility] (RLAB)[address] [place] [address]#### [id number] ####Nailer Hand: JULI JONES ([phone])[facility] ([facility])[address] [place] [address] SQUAMOUS EPITHELIAL CELLS (#/HPF) IN URINE SEDIMENT 6-10 Abnormal 3-5 [facility] Comment on above: Performed By: #### L [id number] ####Nailer Hand: JULI JONES ([phone])[facility]AL[facility]ITAL[facility] (RLAB)[address] [place] [address]#### [id number] ####Nailer Hand: JULI JONES ([phone])[facility] ([facility])[address] [place] [address] UROBILINOGEN (MG/DL) IN URINE Normal Normal Normal (0-1) [facility] Comment on above: Performed By: #### L [id number] ####Nailer Hand: JULI JONES ([phone])[facility] (RLAB)[address] [place] [address]#### [id number] ####Nailer Hand: JULI JONES ([id number])[facility] ([facility])[address] [place] [address] VOLUME OF URINE 8-12 mL Normal [facility] Comment on above: Performed By: #### L [id number] ####Nailer Hand: JULI JONES ([phone])[facility]ALIE [facility] (SWRLAB)[address] [place] [address] [place]#### [id number] ####Nailer Hand: JULI JONES ([phone])[facility] (SACLAB)[address] [place] [address] WBC (LEUKOCYTE) (#/HPF) IN URINE SEDIMENT 26-50 Abnormal 0-5 [facility] Comment on above: Performed By: #### L [id number] ####Nailer Hand: JULI JONES ([id number])[facility] (SWRLAB)[address] [place] [address]#### [id number] ####Nailer Hand: JULI JONES ([phone])[facility] (SACLAB)[address] [place] [address] ED Nursing Noteon 12-25-2024 ED Nursing Note Patient up to BSC wi th rollator to void. Normal [facility] ED Nursing Note Patient ambulated in santos with rollator. Physician aware. Patient requesting to go back home by squad. Normal [facility] ED Nursing Note BSC provided to amber ent for bowel movement. Normal [facility] ED Nursing Note Repositioned patient Normal [facility] ED Nursing Note This nurse to room. Patient seen sleeping in bed. Patient states she is unable to give a urine at this time. Bed gale removed. Physician informed. Normal [facility] ED Nursing Note Patient repositioned and placed on bed gale. Normal [facility] ED Nursing Note Patient arrived via squad to room 7 . Patient complains of painful rash in groin area. Pain 8/10. Patient has excoriation of skin on lower abdomen and top of thigh area. Normal [facility] ED Provider Noteon ED Provider Note Normal [facility] Laboratory - Chemistry and C hemistry - challengeon 12-25-2024 Glucose [Mass/Vol] 127 mg/dL High 70 - 100 mg/dL [facility] No Panel Informationon 12-25 Interpretation and review of laboratory results Abnormal [facility] Performed by: [facility], [address] [address] CLIA ID: [id number] [facility] URINE CULTUREon 12-25-2024 Bacteria identified Cx Nom (U) Normal [facility] Comment on above: Performed By: #### L [id number] ####Nailer Hand: JULI JONES ([phone])[facility] (SWRLAB)[address] [place] [address]#### [id number] ####Nailer Hand: JULI JONES ([phone])[facility] (SACLAB)[address] [place] [address] Urinalysis complete panel (U )Ordered By: Gabriela Acosta on 12-25-2024 Amorphous Urates, Urine Few Abnormal Negative /HPF [facility] Bacteria LM.HPF (Urine sed) [#/Area] Moderate Abnormal Negative /HPF [facility] Bilirubin Ql (U) Negative Negative mg/dL [facility] Clarity (U) Turbid Abnormal Clear [facility] Color (U) Light Yellow Lt. Yellow [facility] Epithelial cells.squamous LM.HPF (Urine sed) [#/Area] 6-10 Abnormal [facility] Glucose Ql (U) Normal Normal (<70) mg/dL [facility] Hemoglobin Ql (U) 0.1 mg/dL Abnormal Negative [facility] Interpretation and review of laboratory results Abnormal [facility] Ketones (U) [Mass/Vol] Negative Negat jayne mg/dL [facility] Leukocyte esterase Test strip Ql (U) 500 Abnormal Negative Devang/uL [facility] Nitrite Ql (U) Negative Negative [facility] Non-Squamous Epithalial Cells, Urine 0-2 Abnormal Negative /HPF [facility] pH (U) 6.5 [pH] 5.0 - 8.0 pH [facility] Protein (U) [Mass/Vol] 50 mg/dL Abnormal Negative [facility] RBC LM.HPF (Urine sed) [#/Area] 11-25 Abnormal [facility] Specific gravity (U) [Rel density] Low 1.005 - 1.030 [facility] Urobilinogen (U) [Mass/Vol] Normal Normal (0-1) mg/dL [facility] Volume, Urine 8-12 mL [facility] WBC LM.HPF (Urine sed) [#/Area] 26-50 Abnormal [facility] A specimen with <=10 WBC is not consistent with inflammation. This specimen will not reflex to a urine culture. This specimen has been reflexed to urine culture. [address] 12-20-[address] 12-19-2024 36 Pat aware. Will inf orm patient. Stated she does not feel patient needs wound care at this time [address] 12-14-[address] 12-12-2024 36 Attempted to call aaron wolff to schedule appointment. cannot accept any more messages - called to schedule Hospital follow up [place] [address] Notified home health of verbal order. [place] [address] Mendel nunez, she said okay for verbal order to be given for Triad cream. Apply twice daily, to affected area or per their recommendation. [place] [address] Nurse said yes, okay for a verbal order for the Triad Cream, I will call her back to let her know okay if you are agreeable [address] 12-05-2024 36 Kathy with Rusty mcpherson notified of verbal order [address] 11-29-2024 36 Pt has appt 12/10/[address] 11-21-2024 36 Pt's mychart has nev er been logged into. [address] 11-20-2024 36 Last appt 06/18/24 No future appts [facility] 36 Dmitriy aware [facility] 36 Dmitriy aware [facility] 36 Number listed is OOS [address] 11-19-2024 36 Ok for verbal order see other TE [place] [address] That is fine for nita bal order. Patient needs a face to face with me if needed ok to do virutallu Normal [facility] 36 VM is not taking mes sages at this time - called to schedule patient for ER follow up appointment Normal [facility] Progress Noteon 11-19-2024 Progress Note Normal [facility] 36on 11-15-2024 36 VM is not taking mes sages at this time - called to schedule patient for ER follow up appointment Normal [facility] 36 Normal [facility] AMMONIAon 11-15-2024 Ammonia (P) [Moles/Vol] 38 umol/L Normal 18-72 [facility] Comment on above: Performed By: #### L [id number] ####Nailer Hand: JULI JONES ([phone])[facility] (SWRLAB)[address] [place] [address] CBC W Auto Differential pane l (Bld)on 11-15-2024 Basophils (Bld) [#/Vol] 0 10*3/uL 0.0 - 0.2 10*3/uL [facility] Basophils/100 WBC (Bld) 0.5 % 0.0 - 2.0 % [facility] Eosinophils (Bld) [#/Vol] 0.3 10*3/uL 0.0 - 0.5 10*3/uL [facility] Eosinophils/100 WBC (Bld) 4.4 % 0.0 - 6.0 % [facility] Erythrocyte distribution width (RBC) [Ratio] 13.2 % 11.5 - 15.0 % [facility] Hematocrit (Bld) [Volume fraction] 24.1 % Low 35.0 - 47.0 % [facility] Hemoglobin (Bld) [Mass/Vol] 8 g/dL Low 11.7 - 16.0 g/dL [facility] Immature granulocytes (Bld) [#/Vol] 0 10*3/uL NINF - 0.1 10*3/uL [facility] Immature granulocytes/100 WBC (Bld) 0.5 % 0.0 - 2.0 % [facility] Interpretation and review of laboratory results Abnormal [facility] Lymphocytes (Bld) [#/Vol] 1.8 10*3/uL 1.0 - 4.3 10*3/uL [facility] Lymphocytes/100 WBC (Bld) 26.7 % 15.0 - 45.0 % [facility] MCH (RBC) [Entitic mass] 32.3 pg 26.0 - 34.0 pg [facility] MCHC (RBC) [Mass/Vol] 33.2 % 30.5 - 36.0 % [facility] MCV (RBC) [Entitic vol] 97.2 fL 77.0 - 99.0 fL [facility] Monocytes (Bld) [#/Vol] 0.9 10*3/uL 0.0 - 0.9 10*3/uL [facility] Monocytes/100 WBC (Bld) 14 % High 5.0 - 13.0 % [facility] Neutrophils (Bld) [#/Vol] 3.5 10*3/uL 1.8 - 7.5 10*3/uL [facility] Neutrophils/100 WBC (Bld) 53.9 % 38.0 - 82.0 % [facility] Nucleated RBC/100 WBC (Bld) [Ratio] 0 % [facility] Platelet mean volume (Bld) [Entitic vol] 9.1 fL 9.0 - 12.7 fL [facility] Comment on above: MPV is a calculated measurement using platelet volume ratio Platelets (Bld) [#/Vol] 185 10*3/uL 140 - 440 10*3/uL [facility] RBC (Bld) [#/Vol] 2.48 10*6/uL Low 3.80 - 5.20 10*6/uL [facility] WBC (Bld) [#/Vol] 6.6 10*3/uL 3.6 - 10.7 10*3/uL [facility] CBC WITH AUTO DIFFERENTIALon 11-15-2024 Basophils (Bld) [#/Vol] 0.0 10*3/uL Normal 0.0-0.2 [facility] Comment on above: Performed By: #### L [id number] ####Nailer Hand: JULI JONES ([phone])[facility] ([facility])[address] [place] [address] Basophils/100 WBC (Bld) 0.5 % Normal 0.0-2.0 [facility] Comment on above: Performed By: #### L [id number] ####Nailer Hand: JUIL JONES ([phone])[facility] (SWRLAB)[address] [place] [address] Eosinophils (Bld) [#/Vol] 0.3 10*3/uL Normal 0.0-0.5 [facility] Comment on above: Performed By: #### L [id number] ####Nailer Hand: JULI JONES ([phone])[facility]ITAL[facility] (SWRLAB)[address] [place] [address] Eosinophils/100 WBC (Bld) 4.4 % Normal 0.0-6.0 [facility] Comment on above: Performed By: #### L [id number] ####Nailer Hand: JULI JONES ([phone])[facility]ITAL[facility] (SWRLAB)[address] [place] [address] Erythrocyte distribution width (RBC) [Ratio] 13.2 % Normal 11.5-15.0 [facility] Comment on above: Performed By: #### L [id number] ####Nailer Hand: JULI JONES ([phone])[facility]ITAL[facility] (SWRLAB)[address] [place] [address] Hematocrit (Bld) [Volume fraction] 24.1 % Low 35.0-47.0 [facility] Comment on above: Performed By: #### L [id number] ####Nailer Hand: JULI JONES ([phone])[facility]ITAL[facility] (SWRLAB)[address] [place] [address] Hemoglobin (Bld) [Mass/Vol] 8.0 g/dL Low 11.7-16.0 [facility] Comment on above: Performed By: #### L [id number] ####Nailer Hand: JULI JONES ([phone])[facility]ITAL[facility] (SWRLAB)[address] [place] [address] IMMATURE GRANS % 0.5 % Normal 0.0-2.0 [facility] Comment on above: Performed By: #### L [id number] ####Nailer Hand: JULI JONES ([phone])[facility]ITAL[facility] (SWRLAB)[address] [place] [address] IMMATURE GRANS ABSOLUTE 0.0 10*3/uL Normal <0.1 [facility] Comment on above: Performed By: #### L [id number] ####Nailer Hand: JULI JONES ([phone])[facility]ITAL[facility] (SWRLAB)[address] [place] [address] Lymphocytes (Bld) [#/Vol] 1.8 10*3/uL Normal 1.0-4.3 [facility] Comment on above: Performed By: #### L [id number] ####Nailer Hand: JULI JONES ([phone])[facility]ITALJ[facility] (SWRLAB)[address] [place] [address] [place] Lymphocytes/100 WBC (Bld) 26.7 % Normal 15.0-45.0 [facility] Comment on above: Performed By: #### L [id number] ####Nailer Hand: JULI JONES ([phone])[facility]ITALJ[facility] (SWRLAB)[address] [place] [address] MCH (RBC) [Entitic mass] 32.3 pg Normal 26.0-34.0 [facility] Comment on above: Performed By: #### L [id number] ####Nailer Hand: JULI JONES ([phone])[facility]ITALJ[facility] (SWRLAB)[address] [place] [address] MCHC 33.2 % Normal 30.5-36.0 [facility] Comment on above: Performed By: #### L [id number] ####Nailer Hand: JULI JONES ([phone])[facility]ITALJ[facility] (SWRLAB)[address] [place] [address] MCV (RBC) [Entitic vol] 97.2 fL Normal 77.0-99.0 [facility] Comment on above: Performed By: #### L [id number] ####Nailer Hand: JULI JONES ([phone])[facility] (SWRLAB)[address] [place] [address] [place] Monocytes (Bld) [#/Vol] 0.9 10*3/uL Normal 0.0-0.9 [facility] Comment on above: Performed By: #### L [id number] ####Nailer Hand: JULI JONES ([phone])[facility]ITALA ROS[facility]IE [facility] (SWRLAB)[address] [place] [address] [place] Monocytes/100 WBC (Bld) 14.0 % High 5.0-13.0 [facility] Comment on above: Performed By: #### L [id number] ####Nailer Hand: JULI JONES ([phone])[facility] (SWRLAB)[address] [place] [address] [place] NEUTROPHILS ABSOLUTE 3.5 10*3/uL Normal 1.8-7.5 [facility] Comment on above: Performed By: #### L [id number] ####Nailer Hand: JULI JONES ([phone])[facility] (SWRLAB)[address] [place] [address] [place] Neutrophils/100 WBC (Bld) 53.9 % Normal 38.0-82.0 [facility] Comment on above: Performed By: #### L [id number] ####Nailer Hand: JULI JONES ([phone])[facility] (SWRLAB)[address] [place] [address] [place] NRBC 0.0 /100 WBCs Normal 0.0-2.0 [facility] Comment on above: Performed By: #### L [id number] ####Nailer Hand: JULI JONES ([phone])[facility] (SWRLAB)[address] [place] [address] [place] Platelet mean volume (Bld) [Entitic vol] 9.1 fL Normal 9.0-12.7 [facility] Comment on above: Result Comment: MPV is a calculated measurement using platelet volume ratio Performed By: #### L [id number] ####Nailer Hand: JULI JONES ([id number])[facility]ITALJ[facility] WIGGINS RITTMAN (SWRLAB)[address] [place] [address] Platelets (Bld) [#/Vol] 185 10*3/uL Normal 140-440 [facility] Comment on above: Performed By: #### L [id number] ####Nailer Hand: JULI JONES ([id number])[facility]ITALJ[facility] DELVALLETMAN (SWRLAB)[address] [place] [address] RBC (Bld) [#/Vol] 2.48 10*6/uL Low 3.80-5.20 [facility] Comment on above: Performed By: #### L [id number] ####Nailer Hand: JULI JONES ([id number])[facility]ITALJ[facility] WIGGINS RITTMAN (SWRLAB)[address] [place] [address] WBC (Bld) [#/Vol] 6.6 10*3/uL Normal 3.6-10.7 [facility] [facility] Comment on above: Performed By: #### L [id number] ####Nailer Hand: JULI JONES ([phone])[facility]OSPITALJohanny WIGGINS RITTMAN (SWRLAB)[address] [place] [address] COMPREHENSIVE METABOLIC PANE Nestor 11-15-2024 Albumin [Mass/Vol] 2.8 g/dL Low 3.5-5.0 [facility] Comment on above: Performed By: #### L AB17, [id number] ####Nailer Hand: JULI JONES ([phone])[facility]OSPITALJohanny WIGGINS RITTMAN (SWRLAB)[address] [place] [address] ALP [Catalytic activity/Vol] 49 U/L Normal 40-150 [facility] Comment on above: Performed By: #### L AB17, [id number] ####Nailer Hand: JULI JONES ([phone])[facility] HOSPITALJohanny MATOSROSALIE RITTMAN (SWRLAB)[address] [place] [address] [place] ALT [Catalytic activity/Vol] U/L Normal <30 [facility] Comment on above: Performed By: #### L AB17, [id number] ####Nailer Hand: JULI JONES ([phone])[facility]OS[facility]ITALA ROSALIE RITTMAN (SWRLAB)[address] Anion gap [Moles/Vol] 9 mmol/L Normal 3-13 [facility] Comment on above: Performed By: #### L AB17, [id number] ####Nailer Hand: JULI JONES ([phone])[facility] HOSPITALJohanny MATOSROSALIE RITTMAN (SWRLAB)[address] [place] [address] [place] AST [Catalytic activity/Vol] 23 U/L Normal <34 [facility] Comment on above: Performed By: #### L AB17, [id number] ####Nailer Hand: JULI JONES ([phone])[facility]OS[facility]ITALJohanny WIGGINS RITTMAN (SWRLAB)[address] [place] [address] [place] Bilirubin [Mass/Vol] 0.3 mg/dL Normal <1.2 [facility] Comment on above: Performed By: #### L AB17, [id number] ####Nailer Hand: JULI JONES ([phone])[facility]OS[facility]ITALJohanny MATOSROSALIE RITTMAN (SWRLAB)[address] [place] [address] [place] Calcium [Mass/Vol] 8.5 mg/dL Normal 8.4-10.2 [facility] Comment on above: Performed By: #### L AB17, [id number] ####Nailer Hand: JLUI JONES ([phone])[facility]OS[facility]ITALJohanny MATOSROSALIE RITTMAN (SWRLAB)[address] [place] [address] [place] Chloride [Moles/Vol] 95 mmol/L Low 98-107 [facility] Comment on above: Performed By: #### L AB17, [id number] ####Nailer Hand: JULI JONES ([phone])[facility]OS[facility]ITALJohanny MATOSROSALIE RITTMAN (SWRLAB)[address] [place] [address] [place] CO2 [Moles/Vol] 25 mmol/L Normal 22-29 [facility] Comment on above: Performed By: #### L AB17, [id number] ####Nailer Hand: JULI JONES ([phone])[facility]OS[facility]ITALJohanny MATOSROSALIE RITTMAN (SWRLAB)[address] [place] [address] [place] Creatinine [Mass/Vol] 2.61 mg/dL High 0.57-1.11 [facility] Comment on above: Performed By: #### L AB17, [id number] ####Nailer Hand: JULI JONES ([phone])[facility] HOS[facility]ITALJohanny WIGGINS RITTMAN (SWRLAB)[address] [place] [address] [place] GLOMERULAR FILTRATION RATE ML/MIN/1.73 SQ M.PREDICTED 20.8 mL/min/1.73m*2 Low >60.0 [facility] Comment on above: Result Comment: Calc ulation based on the Chronic Kidney Disease Epidemiology Collaboration (CKD-EPI) equation refit without adjustment for race Performed By: #### L AB17, [id number] ####Nailer Hand: JULI JONES ([phone])[facility]ITALJohanny WIGGINS RITTMAN (SWRLAB)[address] [place] [address] [place] Glucose [Mass/Vol] 86 mg/dL Normal 74-100 [facility] Comment on above: Performed By: #### L AB17, [id number] ####Nailer Hand: JULI JONES ([phone])[facility] ROSALIE RITTMAN (SWRLAB)[address] [place] [address] [place] Potassium [Moles/Vol] 4.2 mmol/L Normal 3.5-5.1 [facility] Comment on above: Result Comment: [facility] potassium values may be up to 0.5 mmol/L lower than serum values. Performed By: #### L AB17, [id number] ####Nailer Hand: JULI JONES ([phone])[facility]OS[facility]ITALJohanny DELVALLETMAN (SWRLAB)[address] [place] [address] Protein [Mass/Vol] 6.1 g/dL Low 6.4-8.3 [facility] Comment on above: Performed By: #### L AB17, [id number] ####Nailer Hand: JULI JONES ([phone])[facility]OS[facility]ITALJohanny DELVALLETMAN (SWRLAB)[address] [place] [address] Sodium [Moles/Vol] 129 mmol/L Low 136-145 [facility] Comment on above: Performed By: #### L AB17, [id number] ####Nailer Hand: JULI JONES ([phone])[facility]ITALJohanny DELVALLETMAN (SWRLAB)[address] [place] [address] Urea nitrogen [Mass/Vol] 30 mg/dL High 9-23 [facility] Comment on above: Performed By: #### L AB17, [id number] ####Nailer Hand: JULI JONES ([phone])[facility]OS[facility]ITALJohanny DELVALLETMAN (SWRLAB)[address] [place] [address] CT HEAD WO IV CONTRASTon CT HEAD WO IV CONTRAST Normal [facility] CT Head WO contraston [address] evidence of ac [place] intracranial abnormality. Report Dictated on Electronically Signed By: Jarrell Lawler MD Electronically Signed Date/Time: 11/15/2024 7:47 AM [facility] Patient [...] Soft tissue swelling/hematoma, posterior right parietal scalp [facility] Sindy Lawler MD - 11/15/2024 [facility] Name: [facility]KEON : 1965 [id number] Exam Date/Time: 11/15/2024 06:49 Procedure: CT HEAD [...] Electronically Signed Date/Time: 11/15/2024 7:47 AM EDT [facility] Radiology Study observation (narrative) [facility] CT Head WO contrastOrdered B y: Lawsonkitty Bucky on 11-15-2024 [facility] [employer] Work Phone: Comprehensive metabolic 1998 panelon 11-15-2024 Albumin [Mass/Vol] 2.8 g/dL Low 3.5 - 5.0 g/dL [facility] ALP [Catalytic activity/Vol] 49 U/L 40 - 150 U/L [facility] ALT [Catalytic activity/Vol] U/L NINF - 30 U/L [facility] Anion gap [Moles/Vol] 9 mmol/L 3 - 13 mmol/L [facility] AST [Catalytic activity/Vol] 23 U/L NINF - 34 U/L [facility] Bilirubin [Mass/Vol] 0.3 mg/dL NINF - 1.2 mg/dL [facility] Calcium [Mass/Vol] 8.5 mg/dL 8.4 - 10. 2 mg/dL [facility] Chloride [Moles/Vol] 95 mmol/L Low 98 - 10 7 mmol/L [facility] CO2 [Moles/Vol] 25 mmol/L 22 - 29 mmol/L [facility] Creatinine [Mass/Vol] 2.61 mg/dL High 0.57 - 1.11 mg/dL [facility] GFR/1.73 sq M.predicted (S/P/Bld) [Vol rate/Area] 20.8 mL/min Low - PINF [facility] Comment on above: Calculation based on the Chronic Kidney Disease Epidemiology Collaboration (CKD-EPI) equation refit without adjustment for race Glucose [Mass/Vol] 86 mg/dL 74 - 100 mg/dL [facility] Interpretation and review of laboratory results Abnormal [facility] Potassium [Moles/Vol] 4.2 mmol/L 3.5 - 5.1 mmol/L [facility] Comment on above: Plasma potassium [place] may be up to 0.5 mmol/L lower than serum values. Protein [Mass/Vol] 6.1 g/dL Low 6.4 - 8.3 g/dL [facility] Sodium [Moles/Vol] 129 mmol/L Low 136 - 145 mmol/L [facility] Urea nitrogen [Mass/Vol] 30 mg/dL High 9 - 23 mg/dL [facility] ECG 12-LEADon 11-15-2024 ECG 12-LEAD IMPRESSION: Sinus rhythm Borderline repolarization abnormality Electronically Signed On 11-15-2024 07:35:57 EDT by Jess Patton [facility] ED Nursing Noteon 11-15-2024 ED Nursing Note Robert Shirley to tr inocenteport pt back to assisted living facility, set up via roundtrip. ETA 1100. [facility] ED Nursing Note Urinary cath removed per verbal order from MD Pooja. [facility] ED Nursing Note Patient arrived via [place] squad from nursing facility. Patient states she got dizzy and fell, hitting the back of her head. Patient denies any LOC. No lacerations seen. Pain 8/10. Normal [facility] ED Provider Noteon ED Provider Note [facility] LAMOTRIGINE LEVEL (BKR QUEST )on 11-15-2024 QUEST LAMOTRIGINE 12.6 mcg/mL Normal 2.5-15.0 [facility] Comment on above: Result Comment: This test was developed and its analytical performancecharacteristics have been determined by [employer] [place], [place]. It hasnot been cleared or approved by the U.S. Food and DrugAdministration. This assay has been validated pursuantto the CLIA regulations and is used for clinicalpurposes.Test Performed by [facility],[address] [place] [id number] Murrieta M.D., Ph.D., Director of [phone], CLIA [id number] Performed By: #### L [id number] ####[employer] (AMDBEAKER)[address] [place] [address] [facility] Laboratory - Chemistry and C hemistry - challengeon 11-15-2024 Ammonia (P) [Moles/Vol] 38 umol/L 18 - 72 umol/L [facility] Laboratory - Drug toxicology on 11-15-2024 Valproate [Mass/Vol] 56 ug/mL 50 - 12 5 ug/mL [facility] [employer] NT PRO BNPon 11-15-2024 Natriuretic peptide B (Bld) [Mass/Vol] 1700 pg/mL High <125 [facility] Comment on above: Performed By: #### L AB17, [id number] ####Nailer Hand: JULI JONES ([phone])[facility] RITMER (SWRLAB)[address] [place] [address] Natriuretic peptide B [Mass/ Vol]on 11-15-2024 Interpretation and review of laboratory results Abnormal [facility] Natriuretic peptide B (Bld) [Mass/Vol] 1700 pg/mL High NINF - 125 pg/mL [facility] [employer] No Panel Informationon 11-15 Interpretation and review of laboratory results Normal [facility] Toxicity is seen at concentrations >175 ug/mL [facility] [employer] Interpretation and review of laboratory results Normal [facility] [employer] P [place] 22 degrees [facility] [employer] CA Interval 193 ms [facility] [employer] QRS [place] 29 degrees [facility] [employer] QRSD Interval 110 ms [facility] [employer] QT Interval 422 ms [facility] [employer] QTC Interval 430 ms [facility] [employer] T Wave [place] 16 degrees [facility] [employer] Sinus rhythm Borderline repolarization abnormality Electronically Signed On 11-15-2024 07:35:57 EDT by Jess Patton CV Jess Cordova MD - 11/15/2024 IMPRESSION: Sinus rhythm Borderline repolarization abnormality Electronically Signed On 11-15-2024 07:35:57 EDT by Jess Patton [facility] VALPROIC ACID TOTALon 2024 VALPROIC ACID 56 ug/mL Normal 50-125 [facility] Comment on above: Result Comment: ORDE R COMMENTS:Toxicity is seen at concentrations >175 ug/mL Performed By: #### L AB24 ####Nailer Hand: BRENDA JEAN ([phone])[facility] OSVALDO (SBHLAB)[address] [place] [address] Vital signson 11-15-2024 Heart rate 62 /min bpm [employer] XR Chest Single viewon 11-15 FINDINGS/IMPRESSION: Limitations: [...] Electronically Signed Date/Time: 11/15/2024 7:50 AM EDT [facility] Patient Name: JESSY WEN : 1965 Exam Date/Time: 11/15/2024 07:18 Procedure: XR CHEST 1 VIEW Ordering Provider: KIRKLAND AUSTIN Reason For Exam: pedal edema, fall CHEST - PORTABLE: CLINICAL INDICATION: pedal edema, fall. Chest pain. TECHNIQUE: Portable AP COMPARISON: 10/02/2024. [facility] Sindy Lawler MD - 11/15/2024 Patient [...] Signed Date/Time: 11/15/2024 7:50 AM EDT [facility] Radiology Study observation (narrative) [facility] XR Pelvis 1 or 2 Viewson No acute fracture or dislocation. Report Dictated on Electronically Signed By: Jarrell Lawler MD Electronically Signed Date/Time: 11/15/2024 7:49 AM EDT [facility] Patient Name: JESSY WEN : 1965 [...] lines and devices: Infante catheter in place. [facility] Sindy Lawler MD - 11/15/2024 Patient [...] Signed Date/Time: 11/15/2024 7:49 AM EDT [facility] Radiology Study observation (narrative) [facility] 36on 11-12-2024 36 Normal [facility] 36on 11-09-2024 36 Normal [facility] 36on 11-08-2024 36 OV notes faxed and confirmation received Normal [facility] 36 Jeremi was notified yesterday, will fax OV notes Normal [facility] 36on 11-07-2024 36 Ok for verbal order Normal [facility] 36 Normal [facility] Progress Noteon 11-05-2024 Progress Note Normal [facility] CBC (HEMOGRAM)on 11-03-2024 Erythrocyte distribution width (RBC) [Ratio] 13.4 % Normal 11.5-15.0 [facility] Comment on above: Performed By: #### L [id number] ####Nailer Hand: JULI JONES ([phone])[facility] ADMINISTRATIONROSALIE Chef SurfingTMAN (RLAB)[address] [place] [address] Hematocrit (Bld) [Volume fraction] 26.1 % Low 35.0-47.0 [facility] Comment on above: Performed By: #### L AB294 ####Nailer Hand: JULI JONES ([phone])[facility] ROSALIE [employer] SurfingTMAN (myAchyRLAB)[address] [place] [address] Hemoglobin (Bld) [Mass/Vol] 8.7 g/dL Low 11.7-16.0 [facility] Comment on above: Performed By: #### L [id number] ####Nailer Hand: JULI JONES ([phone])[facility] Chef SurfingTMAN (SWRLAB)[address] MCH (RBC) [Entitic mass] 32.3 pg Normal 26.0-34.0 [facility] Comment on above: Performed By: #### L AB294 ####Nailer Hand: JULI JONES ([phone])[facility]OS[facility]ITALJohanny DELVALLETMAN (SWRLAB)[address] MCHC 33.3 % Normal 30.5-36.0 [facility] Comment on above: Performed By: #### L AB294 ####Nailer Hand: JULI JONES ([phone])[facility]ITALJohanny DELVALLETMAN (SWRLAB)[address] [place] [address] MCV (RBC) [Entitic vol] 97.0 fL Normal 77.0-99.0 [facility] Comment on above: Performed By: #### L AB294 ####Nailer Hand: JULI JONES ([phone])[facility]ITALJohanny DELVALLETMAN (SWRLAB)[address] [place] [address] Platelet mean volume (Bld) [Entitic vol] 9.3 fL Normal 9.0-12.7 [facility] Comment on above: Result Comment: MPV is a calculated measurement using platelet volume ratio Performed By: #### L AB294 ####Nailer Hand: JULI JONES ([phone])[facility]ITALJohanny DELVALLETMAN (SWRLAB)[address] [place] [address] Platelets (Bld) [#/Vol] 236 10*3/uL Normal 140-440 [facility] Comment on above: Performed By: #### L AB294 ####Nailer Hand: JULI JONES ([phone])[facility]ITALJohanny DELVALLETMAN (SWRLAB)[address] [place] [address] RBC (Bld) [#/Vol] 2.69 10*6/uL Low 3.80-5.20 [facility] Comment on above: Performed By: #### L AB294 ####Nailer Hand: JULI JONES ([phone])[facility] (SWRLAB)[address] [place] [address] WBC (Bld) [#/Vol] 8.9 10*3/uL Normal 3.6-10.7 [facility] Comment on above: Performed By: #### L AB294 ####Nailer Hand: JULI JONES ([phone])[facility] ADELIAAN (SWRLAB)[address] [place] [address] CBC panel Auto (Bld)on 11-03 Erythrocyte distribution width (RBC) [Ratio] 13.4 % 11.5 - 15.0 % [facility] Hematocrit (Bld) [Volume fraction] 26.1 % Low 35.0 - 47.0 % [facility] Hemoglobin (Bld) [Mass/Vol] 8.7 g/dL Low 11.7 - 16.0 g/dL [facility] Interpretation and review of laboratory results Abnormal [facility] MCH (RBC) [Entitic mass] 32.3 pg 26.0 - 34.0 pg [facility] MCHC (RBC) [Mass/Vol] 33.3 % 30.5 - 36.0 % [facility] MCV (RBC) [Entitic vol] 97 fL 77.0 - 99.0 fL [facility] Platelet mean volume (Bld) [Entitic vol] 9.3 fL 9.0 - 12.7 fL [facility] Comment on above: MPV is a calculated measurement using platelet volume ratio Platelets (Bld) [#/Vol] 236 10*3/uL 140 - 440 10*3/uL [facility] RBC (Bld) [#/Vol] 2.69 10*6/uL Low 3.80 - 5.20 10*6/uL [facility] WBC (Bld) [#/Vol] 8.9 10*3/uL 3.6 - 10.7 10*3/uL [facility] COMPLETE URINALYSISon 2024 BACTERIA (#/HPF) IN URINE Negative Normal Negative [facility] Comment on above: Performed By: #### L [id number] ####Nailer Hand: JULI JONES ([phone])[facility]OS[facility]ITALJohanny MATOSROSALIE RITTMAN (SWRLAB)[address] [place] [address] [place] BILIRUBIN, TOTAL PRESENCE IN URINE Negative Normal Negative [facility] Comment on above: Performed By: #### L AB347 ####Nailer Hand: JULI JONES ([phone])[facility]ITALJohanny MATOSROSALIE RITTMAN (SWRLAB)[address] [place] [address] [place] Clarity (U) Clear Normal Clear [facility] Comment on above: Performed By: #### L [id number] ####Nailer Hand: JULI JONES ([phone])[facility]ITALA ROSALIE RITTMAN (SWRLAB)[address] Color (U) Colorless Normal Lt. Yellow [facility] Comment on above: Performed By: #### L AB347 ####Nailer Hand: JULI JONES ([phone])[facility]ITALA ROSALIE RITTMAN (SWRLAB)[address] [place] [address] [place] GLUCOSE (MG/DL) IN URINE Normal Normal Normal (<70) [facility] Comment on above: Performed By: #### L [id number] ####Nailer Hand: JULI JONES ([phone])[facility]OS[facility]ITALJohanny MATOSROSALIE RITTMAN (SWRLAB)[address] [place] [address] [place] HEMOGLOBIN PRESENCE IN URINE Negative Normal Negative [facility] Comment on above: Performed By: #### L AB347 ####Nailer Hand: JULI JONES ([phone])[facility]ITALA ROSALIE RITTMAN (SWRLAB)[address] [place] [address] [place] Ketones Ql (U) Negative Normal Negative [facility] Comment on above: Performed By: #### L [id number] ####Nailer Hand: JULI JONES ([phone])[facility]ITALA ROSALIE RITTMAN (SWRLAB)[address] [place] [address] [place] LEUKOCYTE ESTERASE PRESENCE IN URINE BY TEST STRIP Negative Normal Negative [facility] Comment on above: Performed By: #### L [id number] ####Nailer Hand: JULI JONES ([phone])[facility]ITALJohanny WIGGINS RITTMAN (SWRLAB)[address] [place] [address] NITRITE PRESENCE IN URINE Negative Normal Negative [facility] Comment on above: Performed By: #### L [id number] ####Nailer Hand: JULI JONES ([phone])[facility]ITALJohanny WIGGINS RITTMAN (SWRLAB)[address] [place] [address] pH (U) 6.0 [pH] Normal 5.0-8.0 [facility] Comment on above: Performed By: #### L AB347 ####Nailer Hand: JULI JONES ([phone])[facility]ITALJohanny WIGGINS RITTMAN (SWRLAB)[address] [place] [address] Protein (U) [Mass/Vol] 10 mg/dL Abnormal Negative [facility] Comment on above: Performed By: #### L AB347 ####Nailer Hand: JULI JONES ([phone])[facility]ITALJohanny WIGGINS RITTMAN (SWRLAB)[address] [place] [address] [place] RBC (#/HPF) IN URINE SEDIMENT 0-2 Normal 0-2 [facility] Comment on above: Performed By: #### L AB347 ####Nailer Hand: JULI JONES ([phone])[facility]ITALJohanny WIGGINS RITTMAN (SWRLAB)[address] [place] [address] Specific gravity (U) [Rel density] 1.004 Low 1.005-1.03 0 [facility] Comment on above: Performed By: #### L [id number] ####Nailer Hand: JLUI JONES ([phone])[facility]ITALJohanny WIGGINS [employer]IT[employer]AN (SWRLAB)[address] [place] [address] Specimen volume (U) 12 mL Normal [facility] Comment on above: Performed By: #### L [id number] ####Nailer Hand: JULI JONES ([phone])[facility]ITALJohanny WIGGINS RITTMAN (SWRLAB)[address] [place] [address] [place] SQUAMOUS EPITHELIAL CELLS (#/HPF) IN URINE SEDIMENT Negative Normal 3-5 [facility] Comment on above: Performed By: #### L [id number] ####Nailer Hand: JULI JONES ([phone])[facility]ITALJohanny WIGGINS RITTMAN (SWRLAB)[address] [place] [address] [place] UROBILINOGEN (MG/DL) IN URINE Normal Normal Normal (0-1) [facility] Comment on above: Performed By: #### L AB347 ####Nailer Hand: JULI JONES ([phone])[facility]ITALJohanny WIGGINS RITTMAN (SWRLAB)[address] [place] [address] WBC (LEUKOCYTE) (#/HPF) IN URINE SEDIMENT Negative Normal 0-5 [facility] Comment on above: Performed By: #### L [id number] ####Nailer Hand: JULI JONES ([phone])[facility]ITALJohanny WIGGINS RITTMAN (SWRLAB)[address] [place] [address] ED Nursing Noteon 11-03-2024 ED Nursing Note Pt. Left ED via stre tcher with EMS. Infante Catheter in place upon transfer as per provider instructions. Normal [facility] ED Provider Noteon ED Provider Note Normal [facility] Laboratory - Chemistry and C hemistry - challengeon 11-03-2024 Anion gap (Bld) [Moles/Vol] 11 mmol/L 3.00 - 13.00 [facility] Calcium.ionized (Bld) [Moles/Vol] 4.7 mg/dl 4.30 - 5.20 mg/dl [facility] Chloride [Moles/Vol] 91 mmol/L Low 98 - 11 4 mmol/L [facility] CO2 [Moles/Vol] 28 mmol/L 21 - 29 mmol/L [facility] Creatinine [Mass/Vol] 3.5 mg/dL High 0.6 - 1.3 mg/dL [facility] GFR/1.73 sq M.predicted CKD-EPI (S/P/Bld) [Vol rate/Area] 14.6 [facility] Comment on above: KDIGO guidelines pro vide [...] [Mass/Vol] 89 mg/dL 70 - 100 mg/dL [facility] Potassium [Moles/Vol] 3.7 mmol/L 3.4 - 5.1 mmol/L [facility] Sodium [Moles/Vol] 130 mmol/L Low 133 - 145 mmol/L [facility] Urea (Bld) [Mass/Vol] 31 mg/dL High 4 - 22 mg/dL [facility] No Panel Informationon 11-03 Interpretation and review of laboratory results Abnormal [facility] Performed by: [facility], [address] [place] [address] CLIA ID: [id number] [facility] Urinalysis complete panel (U )Ordered By: Katarina Larkin on 11-03-2024 Bacteria LM.HPF (Urine sed) [#/Area] Negative Negative /HPF [facility] Bilirubin Ql (U) Negative Negative mg/dL [facility] Clarity (U) Clear Clear [facility] Color (U) Colorless Lt. Yellow [facility] Epithelial cells.squamous LM.HPF (Urine sed) [#/Area] Negative [facility] Glucose Ql (U) Normal Normal (<70) mg/dL [facility] Hemoglobin Ql (U) Negative Negative mg/dL [facility] Interpretation and review of laboratory results Abnormal [facility] Ketones (U) [Mass/Vol] Negative Negat jayne mg/dL [facility] Leukocyte esterase Test strip Ql (U) Negative Negative Devang/uL [facility] Nitrite Ql (U) Negative Negative [facility] pH (U) 6.0 [pH] 5.0 - 8.0 pH [facility] Protein (U) [Mass/Vol] 10 mg/dL Abnormal Negative [facility] RBC LM.HPF (Urine sed) [#/Area] 0-2 [facility] Specific gravity (U) [Rel density] 1.004 Low 1.005 - 1.030 [facility] Urobilinogen (U) [Mass/Vol] Normal Normal (0-1) mg/dL [facility] Volume, Urine 12 mL [facility] WBC LM.HPF (Urine sed) [#/Area] Negative [facility] XR Hip - right 3 Viewson No acute fracture or dislocation identified. Report Dictated on Electronically Signed By: Harvey Rayo MD Electronically Signed Date/Time: 11/03/2024 3:28 AM EDT [facility] Patient Name: JESSY WEN : 1965 Exam Date/Time: 11/03/2024 02:57 Procedure: [...] fusion. There is no soft tissue abnormality. [facility] Harvey Rayo MD - 11/03/2024 Patient Name: JESSY MCKEON : 1965 Exam Date/Time: 11/03/2024 02:57 Procedure: [...] Electronically Signed Date/Time: 11/03/2024 3:28 AM EDT [facility] Study observation (narrative) [facility] XR Hip - right 3 ViewsOrdere d By: Harvey Rayo on 11-03-2024 [facility] Work Phone: 36on 10-11-2024 36 Jeremi aware Normal [facility] 36 Normal [facility] 36 Normal [facility] 36on 10-08-2024 36 Patient declined hos pital follow up appointment at this time. Normal [facility] 36 See if patient would like to schedule a hospital follow-up please asked the hospital follow-up transfer questions Normal [facility] 30on 10-06-2024 30 Normal [facility] [id number] 10-06-2024 [id number] Normal [facility] BASIC METABOLIC PANELon 09-16 Anion gap [Moles/Vol] 7 mmol/L Normal 3-13 [facility] Comment on above: Performed By: #### L [id number] ####Nailer Hand: JULI JONES ([phone])[facility])[address] [place] [address] Calcium [Mass/Vol] 8.5 mg/dL Normal 8.4-10.2 [facility] Comment on above: Performed By: #### L AB15 ####Nailer Hand: JULI JONES ([phone])[facility] ([facility])[address] [place] [address] [place] Chloride [Moles/Vol] 108 mmol/L High 98-107 [facility] Comment on above: Performed By: #### L AB15 ####Nailer Hand: JULI JONES ([phone])[facility] ([facility])[address] [place] [address] CO2 [Moles/Vol] 26 mmol/L Normal 22-29 [facility] Comment on above: Performed By: #### L AB15 ####Nailer Hand: JULI JONES ([phone])[facility])[address] [place] [address] Creatinine [Mass/Vol] 2.94 mg/dL High 0.57-1.11 [facility] Comment on above: Performed By: #### L AB15 ####Nailer Hand: JULI JONES ([phone])[facility])[address] [place] [address] GLOMERULAR FILTRATION RATE ML/MIN/1.73 SQ M.PREDICTED 18.1 mL/min/1.73m*2 Low >60.0 [facility] Comment on above: Result Comment: Calc ulation based on the Chronic Kidney Disease Epidemiology Collaboration (CKD-EPI) equation refit without adjustment for race Performed By: #### L AB15 ####Nailer Hand: JULI JONES ([phone])[facility])[address] [place] [address] Glucose [Mass/Vol] 81 mg/dL Normal 74-100 [facility] Comment on above: Performed By: #### L AB15 ####Nailer Hand: JULI JONES ([phone])[address] Potassium [Moles/Vol] 4.1 mmol/L Normal 3.5-5.1 [facility] Comment on above: Result Comment: [facility] potassium values may be up to 0.5 mmol/L lower than serum values. Performed By: #### L AB15 ####Nailer Hand: JULI JONES ([phone])[facility])[address] [place] [address] [place] Sodium [Moles/Vol] 141 mmol/L Normal 136-145 [facility] Comment on above: Performed By: #### L AB15 ####Nailer Hand: JULI JONES ([phone])[facility])[address] [place] [address] [place] Urea nitrogen [Mass/Vol] 31 mg/dL High 9-23 [facility] Comment on above: Performed By: #### L AB15 ####Nailer Hand: JULI JONES ([phone])[facility])[address] [place] [address] CBC WITH AUTO DIFFERENTIALon 10-06-2024 Basophils (Bld) [#/Vol] 0.0 10*3/uL Normal 0.0-0.2 [facility] Comment on above: Performed By: #### L [id number] ####Nailer Hand: JULI JONES ([phone])[facility])[address] [place] [address] Basophils/100 WBC (Bld) 0.4 % Normal 0.0-2.0 [facility] Comment on above: Performed By: #### L [id number] ####Nailer Hand: JULI JONES ([id number])[facility])[address] [place] [address] Eosinophils (Bld) [#/Vol] 0.4 10*3/uL Normal 0.0-0.5 [facility] Comment on above: Performed By: #### L [id number] ####Nailer Hand: JULI JONES ([phone])[facility])[address] [place] [address] Eosinophils/100 WBC (Bld) 5.6 % Normal 0.0-6.0 [facility] Comment on above: Performed By: #### L [id number] ####Nailer Hand: JULI JONES ([id number])[facility])[address] [place] [address] Erythrocyte distribution width (RBC) [Ratio] 14.3 % Normal 11.5-15.0 [facility] Comment on above: Performed By: #### L [id number] ####Nailer Hand: JULI JONES ([phone])[facility])[address] [place] [address] Hematocrit (Bld) [Volume fraction] 28.6 % Low 35.0-47.0 [facility] Comment on above: Performed By: #### L [id number] ####Nailer Hand: JULI JONES ([phone])[address] Hemoglobin (Bld) [Mass/Vol] 9.3 g/dL Low 11.7-16.0 [facility] Comment on above: Performed By: #### L [id number] ####Nailer Hand: JULI JONES ([phone])[facility])[address] [place] [address] IMMATURE GRANS % 0.3 % Normal 0.0-2.0 [facility] Comment on above: Performed By: #### L [id number] ####Nailer Hand: JULI JONES ([phone])[address] IMMATURE GRANS ABSOLUTE 0.0 10*3/uL Normal <0.1 [facility] Comment on above: Performed By: #### L [id number] ####Nailer Hand: JULI JONES ([phone])[address] Lymphocytes (Bld) [#/Vol] 3.1 10*3/uL Normal 1.0-4.3 [facility] Comment on above: Performed By: #### L [id number] ####Nailer Hand: JULI JONES ([phone])[address] Lymphocytes/100 WBC (Bld) 45.0 % Normal 15.0-45.0 [facility] Comment on above: Performed By: #### L [id number] ####Nailer Hand: JULI JONES ([id number])[address] MCH (RBC) [Entitic mass] 32.4 pg Normal 26.0-34.0 [facility] Comment on above: Performed By: #### L [id number] ####Nailer Hand: JULI JONES ([phone])[facility] ([facility])[address] [place] [address] MCHC 32.5 % Normal 30.5-36.0 [facility] Comment on above: Performed By: #### L [id number] ####Nailer Hand: JULI JONES ([phone])[facility] ([facility])[address] [place] [address] MCV (RBC) [Entitic vol] 99.7 fL High 77.0-99.0 [facility] Comment on above: Performed By: #### L [id number] ####Nailer Hand: JULI JONES ([phone])[facility])[address] [place] [address] Monocytes (Bld) [#/Vol] 0.6 10*3/uL Normal 0.0-0.9 [facility] Comment on above: Performed By: #### L [id number] ####Nailer Hand: JULI JONES ([phone])[facility] ([facility])[address] [place] [address] Monocytes/100 WBC (Bld) 8.6 % Normal 5.0-13.0 [facility] Comment on above: Performed By: #### L [id number] ####Nailer Hand: JULI JONES ([phone])[facility])[address] [place] [address] NEUTROPHILS ABSOLUTE 2.7 10*3/uL Normal 1.8-7.5 [facility] Comment on above: Performed By: #### L [id number] ####Nailer Hand: JULI JONES ([phone])[facility] ([facility])[address] [place] [address] Neutrophils/100 WBC (Bld) 40.1 % Normal 38.0-82.0 [facility] Comment on above: Performed By: #### L [id number] ####Nailer Hand: JULI JONES ([phone])[facility])[address] [place] [address] NRBC 0.0 /100 WBCs Normal 0.0-2.0 [facility] Comment on above: Performed By: #### L [id number] ####Nailer Hand: JULI JONES ([phone])[facility] ([facility])[address] [place] [address] Platelet mean volume (Bld) [Entitic vol] 9.5 fL Normal 9.0-12.7 [facility] Comment on above: Performed By: #### L [id number] ####Nailer Hand: JULI JONES ([phone])[facility] ([facility])[address] [place] [address] Platelets (Bld) [#/Vol] 222 10*3/uL Normal 140-440 [facility] Comment on above: Performed By: #### L [id number] ####Nailer Hand: JULI JONES ([phone])[facility] ([facility])[address] [place] [address] RBC (Bld) [#/Vol] 2.87 10*6/uL Low 3.80-5.20 [facility] Comment on above: Performed By: #### L [id number] ####Nailer Hand: JULI JONES ([phone])[facility] ([facility])[address] [place] [address] WBC (Bld) [#/Vol] 6.8 10*3/uL Normal 3.6-10.7 [facility] Comment on above: Performed By: #### L [id number] ####Nailer Hand: JULI JONES ([phone])[facility])[address] [place] [address] Nursing Noteon 10-06-2024 Nursing Note Report Called to Pt' s Assisted Living. Normal [facility] Progress Noteon 10-06-2024 Progress Note Normal [facility] 30on 10-05-2024 30 Normal [facility] [id number] 10-05-2024 [id number] [facility] faxed or lorenza for PT/OT for patient to participate at return to [place]. Normal [facility] [id number] 10-05-2024 [id number] Normal [facility] [id number] Normal [facility] [id number] Normal [facility] BASIC METABOLIC PANELon 09-16 Anion gap [Moles/Vol] 7 mmol/L Normal 3-13 [facility] Comment on above: Performed By: #### L AB15 ####Nailer Hand: JULI JONES ([phone])[facility] ([facility])[address] [place] [address] Calcium [Mass/Vol] 8.5 mg/dL Normal 8.4-10.2 [facility] Comment on above: Performed By: #### L AB15 ####Nailer Hand: JULI JONES ([phone])[facility] ([facility])[address] [place] [address] Chloride [Moles/Vol] 107 mmol/L Normal 98-107 [facility] Comment on above: Performed By: #### L AB15 ####Nailer Hand: JULI JONES ([phone])[facility] ([facility])[address] [place] [address] CO2 [Moles/Vol] 25 mmol/L Normal 22-29 [facility] Comment on above: Performed By: #### L AB15 ####Nailer Hand: JULI JNOES ([phone])[facility])[address] [place] [address] Creatinine [Mass/Vol] 2.87 mg/dL High 0.57-1.11 [facility] Comment on above: Performed By: #### L AB15 ####Nailer Hand: JULI JONES ([phone])[facility])[address] [place] [address] GLOMERULAR FILTRATION RATE ML/MIN/1.73 SQ M.PREDICTED 18.6 mL/min/1.73m*2 Low >60.0 [facility] Comment on above: Result Comment: Calc ulation based on the Chronic Kidney Disease Epidemiology Collaboration (CKD-EPI) equation refit without adjustment for race Performed By: #### L AB15 ####Nailer Hand: JULI JONES ([id number])[address] Glucose [Mass/Vol] 94 mg/dL Normal 74-100 [facility] Comment on above: Performed By: #### L AB15 ####Nailer Hand: JULI JONES ([id number])[address] Potassium [Moles/Vol] 3.9 mmol/L Normal 3.5-5.1 [facility] Comment on above: Result Comment: [facility] potassium values may be up to 0.5 mmol/L lower than serum values. Performed By: #### L AB15 ####Nailer Hand: JULI JONES ([phone])[address] Sodium [Moles/Vol] 139 mmol/L Normal 136-145 [facility] Comment on above: Performed By: #### L AB15 ####Nailer Hand: JULI JONES ([phone])[address] Urea nitrogen [Mass/Vol] 36 mg/dL High 9-23 [facility] Comment on above: Performed By: #### L AB15 ####Nailer Hand: JULI JONES ([id number])[address] CBC WITH AUTO DIFFERENTIALon 10-05-2024 Basophils (Bld) [#/Vol] 0.0 10*3/uL Normal 0.0-0.2 [facility] Comment on above: Performed By: #### L [id number] ####Nailer Hand: JULI JONES ([phone])[facility])[address] [place] [address] Basophils/100 WBC (Bld) 0.5 % Normal 0.0-2.0 [facility] Comment on above: Performed By: #### L [id number] ####Nailer Hand: JULI JONES ([phone])[facility])[address] [place] [address] Eosinophils (Bld) [#/Vol] 0.3 10*3/uL Normal 0.0-0.5 [facility] Comment on above: Performed By: #### L [id number] ####Nailer Hand: JULI JONES ([phone])[facility])[address] [place] [address] Eosinophils/100 WBC (Bld) 4.9 % Normal 0.0-6.0 [facility] Comment on above: Performed By: #### L [id number] ####Nailer Hand: JULI JONES ([id number])[address] Erythrocyte distribution width (RBC) [Ratio] 14.3 % Normal 11.5-15.0 [facility] Comment on above: Performed By: #### L [id number] ####Nailer Hand: JULI JONES ([id number])[address] Hematocrit (Bld) [Volume fraction] 28.5 % Low 35.0-47.0 [facility] Comment on above: Performed By: #### L [id number] ####Nailer Hand: JULI JONES ([id number])[facility])[address] [place] [address] Hemoglobin (Bld) [Mass/Vol] 9.0 g/dL Low 11.7-16.0 [facility] Comment on above: Performed By: #### L [id number] ####Nailer Hand: JULI JONES ([phone])[address] IMMATURE GRANS % 0.2 % Normal 0.0-2.0 [facility] Comment on above: Performed By: #### L [id number] ####Nailer Hand: JULI [id number])[facility])[address] [place] [address] IMMATURE GRANS ABSOLUTE 0.0 10*3/uL Normal <0.1 [facility] Comment on above: Performed By: #### L [id number] ####Nailer Hand: JULI JONES ([phone])[facility])[address] [place] [address] Lymphocytes (Bld) [#/Vol] 2.4 10*3/uL Normal 1.0-4.3 [facility] Comment on above: Performed By: #### L [id number] ####Nailer Hand: JULI JONES ([phone])[facility])[address] [place] [address] Lymphocytes/100 WBC (Bld) 38.8 % Normal 15.0-45.0 [facility] Comment on above: Performed By: #### L [id number] ####Nailer Hand: JULI JONES ([id number])[facility])[address] [place] [address] MCH (RBC) [Entitic mass] 31.7 pg Normal 26.0-34.0 [facility] Comment on above: Performed By: #### L [id number] ####Nailer Hand: JULI JONES ([phone])[facility])[address] [place] [address] MCHC 31.6 % Normal 30.5-36.0 [facility] Comment on above: Performed By: #### L [id number] ####Nailer Hand: JULI JONES ([phone])[facility])[address] [place] [address] MCV (RBC) [Entitic vol] 100.4 fL High 77.0-99.0 [facility] Comment on above: Performed By: #### L [id number] ####Nailer Hand: JULI JONES ([phone])[facility])[address] [place] [address] [place] Monocytes (Bld) [#/Vol] 0.6 10*3/uL Normal 0.0-0.9 [facility] Comment on above: Performed By: #### L [id number] ####Nailer Hand: JULI JONES ([phone])[facility] ([facility])[address] [place] [address] Monocytes/100 WBC (Bld) 9.3 % Normal 5.0-13.0 [facility] Comment on above: Performed By: #### L [id number] ####Nailer Hand: JULI JONES ([phone])[facility] ([facility])[address] [place] [address] NEUTROPHILS ABSOLUTE 2.9 10*3/uL Normal 1.8-7.5 [facility] Comment on above: Performed By: #### L [id number] ####Nailer Hand: JULI JONES ([phone])[facility] ([facility])[address] [place] [address] Neutrophils/100 WBC (Bld) 46.3 % Normal 38.0-82.0 [facility] Comment on above: Performed By: #### L [id number] ####Nailer Hand: JULI JONES ([phone])[facility] ([facility])[address] [place] [address] NRBC 0.0 /100 WBCs Normal 0.0-2.0 [facility] Comment on above: Performed By: #### L [id number] ####Nailer Hand: JULI JONES ([phone])[facility] ([facility])[address] [place] [address] Platelet mean volume (Bld) [Entitic vol] 9.5 fL Normal 9.0-12.7 [facility] Comment on above: Performed By: #### L [id number] ####Nailer Hand: JULI JONES ([phone])[facility] ([facility])[address] [place] [address] [place] Platelets (Bld) [#/Vol] 202 10*3/uL Normal 140-440 [facility] Comment on above: Performed By: #### L [id number] ####Nailer Hand: JULI JONES ([phone])[facility])[address] [place] [address] RBC (Bld) [#/Vol] 2.84 10*6/uL Low 3.80-5.20 [facility] Comment on above: Performed By: #### L [id number] ####Nailer Hand: JULI JONES ([phone])[facility] ([facility])[address] [place] [address] WBC (Bld) [#/Vol] 6.2 10*3/uL Normal 3.6-10.7 [facility] Comment on above: Performed By: #### L [id number] ####Nailer Hand: JULI JONES ([phone])[facility] ([facility])[address] [place] [address] Consulton 10-05-2024 Consult Normal [facility] Progress Noteon 10-05-2024 Progress Note Normal [facility] Progress Note Normal [facility] 30on 10-04-2024 30 Normal [facility] [id number] 10-04-2024 [id number] Normal [facility] [id number] [facility] CBC WITH AUTO DIFFERENTIALon 10-04-2024 Basophils (Bld) [#/Vol] 0.0 10*3/uL Normal 0.0-0.2 [facility] Comment on above: Performed By: #### L [id number] ####Nailer Hand: JULI OJNES ([phone])[facility] ([facility])[address] [place] [address] Basophils/100 WBC (Bld) 0.5 % Normal 0.0-2.0 [facility] Comment on above: Performed By: #### L [id number] ####Nailer Hand: JULI JONES ([phone])[facility])[address] [place] [address] Eosinophils (Bld) [#/Vol] 0.2 10*3/uL Normal 0.0-0.5 [facility] Comment on above: Performed By: #### L [id number] ####Nailer Hand: JULI JONES ([phone])[address] Eosinophils/100 WBC (Bld) 4.1 % Normal 0.0-6.0 [facility] Comment on above: Performed By: #### L [id number] ####Nailer Hand: JULI JONES ([phone])[address] Erythrocyte distribution width (RBC) [Ratio] 14.5 % Normal 11.5-15.0 [facility] Comment on above: Performed By: #### L [id number] ####Nailer Hand: JULI JONES ([phone])[address] Hematocrit (Bld) [Volume fraction] 28.3 % Low 35.0-47.0 [facility] Comment on above: Performed By: #### L [id number] ####Nailer Hand: JULI JONES ([phone])[address] Hemoglobin (Bld) [Mass/Vol] 8.8 g/dL Low 11.7-16.0 [facility] Comment on above: Performed By: #### L [id number] ####Nailer Hand: JULI JONES ([id number])[address] IMMATURE GRANS % 0.2 % Normal 0.0-2.0 [facility] Comment on above: Performed By: #### L [id number] ####Nailer Hand: JULI JONES ([phone])[address] IMMATURE GRANS ABSOLUTE 0.0 10*3/uL Normal <0.1 [facility] Comment on above: Performed By: #### L [id number] ####Nailer Hand: JULI JONES ([phone])[facility])[address] [place] [address] Lymphocytes (Bld) [#/Vol] 2.3 10*3/uL Normal 1.0-4.3 [facility] Comment on above: Performed By: #### L [id number] ####Nailer Hand: JULI JONES ([id number])[facility])[address] [place] [address] Lymphocytes/100 WBC (Bld) 39.4 % Normal 15.0-45.0 [facility] Comment on above: Performed By: #### L [id number] ####Nailer Hand: JULI JONES ([id number])[facility])[address] [place] [address] MCH (RBC) [Entitic mass] 31.2 pg Normal 26.0-34.0 [facility] Comment on above: Performed By: #### L [id number] ####Nailer Hand: JULI JONSE ([phone])[facility])[address] [place] [address] MCHC 31.1 % Normal 30.5-36.0 [facility] Comment on above: Performed By: #### L [id number] ####Nailer Hand: JULI JONES ([phone])[facility])[address] [place] [address] MCV (RBC) [Entitic vol] 100.4 fL High 77.0-99.0 [facility] Comment on above: Performed By: #### L [id number] ####Nailer Hand: JULI JONES ([phone])[facility])[address] [place] [address] Monocytes (Bld) [#/Vol] 0.7 10*3/uL Normal 0.0-0.9 [facility] Comment on above: Performed By: #### L [id number] ####Nailer Hand: JULI JONES ([phone])[facility])[address] [place] [address] [place] Monocytes/100 WBC (Bld) 12.1 % Normal 5.0-13.0 [facility] Comment on above: Performed By: #### L [id number] ####Nailer Hand: JULI JONES ([phone])[facility] ([facility])[address] [place] [address] NEUTROPHILS ABSOLUTE 2.5 10*3/uL Normal 1.8-7.5 [facility] Comment on above: Performed By: #### L [id number] ####Nailer Hand: JULI JONES ([phone])[facility] ([facility])[address] [place] [address] Neutrophils/100 WBC (Bld) 43.7 % Normal 38.0-82.0 [facility] Comment on above: Performed By: #### L [id number] ####Nailer Hand: UJLI JONES ([phone])[facility] ([facility])[address] [place] [address] NRBC 0.0 /100 WBCs Normal 0.0-2.0 [facility] Comment on above: Performed By: #### L [id number] ####Nailer Hand: JULI JONES ([phone])[facility] ([facility])[address] [place] [address] Platelet mean volume (Bld) [Entitic vol] 9.2 fL Normal 9.0-12.7 [facility] Comment on above: Performed By: #### L [id number] ####Nailer Hand: JULI JONES ([phone])[facility] ([facility])[address] [place] [address] Platelets (Bld) [#/Vol] 192 10*3/uL Normal 140-440 [facility] Comment on above: Performed By: #### L [id number] ####Nailer Hand: JULI JONES ([phone])[facility] ([facility])[address] [place] [address] RBC (Bld) [#/Vol] 2.82 10*6/uL Low 3.80-5.20 [facility] Comment on above: Performed By: #### L [id number] ####Nailer Hand: JULI JONES ([phone])[facility] ([facility])[address] [place] [address] WBC (Bld) [#/Vol] 5.8 10*3/uL Normal 3.6-10.7 [facility] [facility] Comment on above: Performed By: #### L [id number] ####Nailer Hand: JULI JONES ([phone])[facility] ([facility])[address] [place] [address] Consulton 10-04-2024 Consult Normal [facility] Consult Normal [facility] FERRITINon 10-04-2024 Ferritin [Mass/Vol] 254 ng/mL High 5-204 [facility] Comment on above: Result Comment: [place] COMMENTS:Ferritin levels below 10 ng/mL have been reported as indicative of iron deficiency anemia. Performed By: #### L AB68, LAB19 ####Nailer Hand: JULI JNOES ([phone])[facility] ([facility])[address] [place] [address] IRON AND TIBCon 10-04-2024 IRON BINDING CAPACITY 182 ug/dL Low 250-450 [facility] Comment on above: Performed By: #### L [id number] ####Nailer Hand: JULI JONES ([phone])[facility] ([facility])[address] [place] [address] IRON SATURATION 18.1 % Low 20.0-50.0 [facility] Comment on above: Performed By: #### L [id number] ####Nailer Hand: JULI JONES ([phone])[facility] ([facility])[address] [place] [address] IRON, TOTAL 33 ug/dL Low 50-170 [facility] Comment on above: Performed By: #### L [id number] ####Nailer Hand: JULI JONES ([phone])[facility] ([facility])[address] [place] [address] Medical Studenton 10-04-2024 Medical Student Normal [facility] Progress Noteon 10-04-2024 Progress Note Normal [facility] Progress Note Normal [facility] Progress Note Normal [facility] Progress Note Normal [facility] RENAL FUNCTION PANELon 10-04 Albumin [Mass/Vol] 2.8 g/dL Low 3.5-5.0 [facility] Comment on above: Performed By: #### L AB68, LAB19 ####Nailer Hand: JULI JONES ([phone])[facility] ([facility])[address] [place] [address] Anion gap [Moles/Vol] 10 mmol/L Normal 3-13 [facility] Comment on above: Performed By: #### L AB68, LAB19 ####Nailer Hand: JULI JONES ([phone])[facility])[address] [place] [address] Calcium [Mass/Vol] 8.9 mg/dL Normal 8.4-10.2 [facility] Comment on above: Performed By: #### L AB68, LAB19 ####Nailer Hand: JULI JONES ([phone])[facility] ([facility])[address] [place] [address] [place] Chloride [Moles/Vol] 106 mmol/L Normal 98-107 [facility] Comment on above: Performed By: #### L AB68, LAB19 ####Nailer Hand: JULI JONES ([phone])[facility] ([facility])[address] [place] [address] [place] CO2 [Moles/Vol] 24 mmol/L Normal 22-29 [facility] Comment on above: Performed By: #### L AB68, LAB19 ####Nailer Hand: JULI JONES ([phone])[facility])[address] [place] [address] Creatinine [Mass/Vol] 2.93 mg/dL High 0.57-1.11 [facility] Comment on above: Performed By: #### L AB68, LAB19 ####Nailer Hand: JULI JONES ([phone])[facility])[address] [place] [address] [place] GLOMERULAR FILTRATION RATE ML/MIN/1.73 SQ M.PREDICTED 18.1 mL/min/1.73m*2 Low >60.0 [facility] Comment on above: Result Comment: Calc ulation based on the Chronic Kidney Disease Epidemiology Collaboration (CKD-EPI) equation refit without adjustment for race Performed By: #### L AB68, LAB19 ####Nailer Hand: JULI JONES ([phone])[facility])[address] [place] [address] Glucose [Mass/Vol] 78 mg/dL Normal 74-100 [facility] Comment on above: Performed By: #### Kesha ABFei, LAB19 ####Nailer Hand: JULI JONES ([phone])[facility])[address] [place] [address] Phosphate [Mass/Vol] 3.6 mg/dL Normal 2.3-4.7 [facility] Comment on above: Performed By: #### Kesha ABFei, LAB19 ####Nailer Hand: JULI JONES ([phone])[facility])[address] [place] [address] [place] Potassium [Moles/Vol] 3.8 mmol/L Normal 3.5-5.1 [facility] Comment on above: Result Comment: [facility] potassium values may be up to 0.5 mmol/L lower than serum values. Performed By: #### Kesha ABFei, LAB19 ####Nailer Hand: JULI OJNES ([phone])[facility])[address] [place] [address] [place] Sodium [Moles/Vol] 140 mmol/L Normal 136-145 [facility] Comment on above: Performed By: #### L AB68, LAB19 ####Nailer Hand: JULI JONES ([phone])[facility])[address] [place] [address] [place] Urea nitrogen [Mass/Vol] 37 mg/dL High 9-23 [facility] Comment on above: Performed By: #### L AB68, LAB19 ####Nailer Hand: JULI JONES ([phone])[facility])[address] [place] [address] 30on 10-03-2024 30 Normal [facility] CBC WITH AUTO DIFFERENTIALon 10-03-2024 Basophils (Bld) [#/Vol] 0.0 10*3/uL Normal 0.0-0.2 [facility] Comment on above: Performed By: #### L [id number] ####Nailer Hand: JULI JONES ([phone])[facility] ([facility])[address] [place] [address] Basophils/100 WBC (Bld) 0.1 % Normal 0.0-2.0 [facility] Comment on above: Performed By: #### L [id number] ####Nailer Hand: JULI JONES ([phone])[facility])[address] [place] [address] Eosinophils (Bld) [#/Vol] 0.2 10*3/uL Normal 0.0-0.5 [facility] Comment on above: Performed By: #### L [id number] ####Nailer Hand: JULI JONES ([phone])[facility])[address] [place] [address] Eosinophils/100 WBC (Bld) 3.4 % Normal 0.0-6.0 [facility] Comment on above: Performed By: #### L [id number] ####Nailer Hand: JULI JONES ([phone])[facility])[address] [place] [address] Erythrocyte distribution width (RBC) [Ratio] 14.6 % Normal 11.5-15.0 [facility] Comment on above: Performed By: #### L [id number] ####Nailer Hand: JULI JONES ([phone])[facility])[address] [place] [address] Hematocrit (Bld) [Volume fraction] 30.9 % Low 35.0-47.0 [facility] Comment on above: Performed By: #### L [id number] ####Nailer Hand: JULI JONES ([phone])[facility])[address] [place] [address] Hemoglobin (Bld) [Mass/Vol] 9.7 g/dL Low 11.7-16.0 [facility] Comment on above: Performed By: #### L [id number] ####Nailer Hand: JULI JONES ([phone])[facility])[address] [place] [address] IMMATURE GRANS % 0.4 % Normal 0.0-2.0 [facility] Comment on above: Performed By: #### L [id number] ####Nailer Hand: JULI JONES ([phone])[address] IMMATURE GRANS ABSOLUTE 0.0 10*3/uL Normal <0.1 [facility] Comment on above: Performed By: #### L [id number] ####Nailer Hand: JULI JONES ([phone])[facility])[address] [place] [address] Lymphocytes (Bld) [#/Vol] 1.8 10*3/uL Normal 1.0-4.3 [facility] Comment on above: Performed By: #### L [id number] ####Nailer Hand: JULI JONES ([phone])[facility])[address] [place] [address] Lymphocytes/100 WBC (Bld) 26.1 % Normal 15.0-45.0 [facility] Comment on above: Performed By: #### L [id number] ####Nailer Hand: JULI JONES ([phone])[address] MCH (RBC) [Entitic mass] 31.7 pg Normal 26.0-34.0 [facility] Comment on above: Performed By: #### L [id number] ####Nailer Hand: JULI [phone])[facility])[address] [place] [address] MCHC 31.4 % Normal 30.5-36.0 [facility] Comment on above: Performed By: #### L [id number] ####Nailer Hand: JULI JONES ([phone])[facility] ([facility])[address] [place] [address] MCV (RBC) [Entitic vol] 101.0 fL High 77.0-99.0 [facility] Comment on above: Performed By: #### L [id number] ####Nailer Hand: JULI JONES ([phone])[facility] ([facility])[address] [place] [address] Monocytes (Bld) [#/Vol] 0.7 10*3/uL Normal 0.0-0.9 [facility] Comment on above: Performed By: #### L [id number] ####Nailer Hand: JULI JONES ([phone])[facility] ([facility])[address] [place] [address] [place] Monocytes/100 WBC (Bld) 10.7 % Normal 5.0-13.0 [facility] Comment on above: Performed By: #### L [id number] ####Nailer Hand: JULI JONES ([phone])[facility] ([facility])[address] [place] [address] NEUTROPHILS ABSOLUTE 4.0 10*3/uL Normal 1.8-7.5 [facility] Comment on above: Performed By: #### L [id number] ####Nailer Hand: JULI JONES ([phone])[facility] ([facility])[address] [place] [address] [place] Neutrophils/100 WBC (Bld) 59.3 % Normal 38.0-82.0 [facility] Comment on above: Performed By: #### L [id number] ####Nailer Hand: JULI JONES ([phone])[facility] ([facility])[address] [place] [address] NRBC 0.0 /100 WBCs Normal 0.0-2.0 [facility] Comment on above: Performed By: #### L [id number] ####Nailer Hand: JULI JONES ([phone])[facility])[address] [place] [address] Platelet mean volume (Bld) [Entitic vol] 9.5 fL Normal 9.0-12.7 [facility] Comment on above: Performed By: #### L [id number] ####Nailer Hand: JULI JONES ([phone])[facility] ([facility])[address] [place] [address] Platelets (Bld) [#/Vol] 218 10*3/uL Normal 140-440 [facility] Comment on above: Performed By: #### L [id number] ####Nailer Hand: JULI JONES ([phone])[facility])[address] [place] [address] RBC (Bld) [#/Vol] 3.06 10*6/uL Low 3.80-5.20 [facility] Comment on above: Performed By: #### L [id number] ####Nailer Hand: JULI JONES ([phone])[facility])[address] [place] [address] WBC (Bld) [#/Vol] 6.8 10*3/uL Normal 3.6-10.7 [facility] Comment on above: Performed By: #### L [id number] ####Nailer Hand: JULI JONES ([phone])[facility])[address] [place] [address] ED Nursing Noteon 10-03-2024 ED Nursing Note EMS here and report given. Pt transferred to EMS cot with 5 people helping. Normal [facility] ED Nursing Note Provided patient wit h beverage. Patient has no further needs Normal [facility] ED Nursing Note Patient resting comfortably. Respirations even and non-labored. Normal [facility] ED Nursing Note Patient provided wit h a warm blanket. Patient denies any additional needs at this time. Normal [facility] OSMOLALITY, SERUMon 10-03-19 25 OSMOLALITY, SERUM 303 mOsm/kg High 280-300 [facility] Comment on above: Order Comment: Pleas e collect and send urine and serum labs together Performed By: #### L [id number] ####Nailer Hand: JULI JONES ([phone])[facility] ([facility])[address] [place] [address] OSMOLALITY, URINEon 10-03-19 25 OSMOLALITY, URINE 153 mOsm/kg Low 300-1000 [facility] Comment on above: Order Comment: Pleas e collect and send urine and serum labs together Performed By: #### L AB420, [id number], [id number] ####Nailer Hand: JULI JONES ([phone])[facility])[address] [place] [address] PROTEIN, URINE, RANDOMon Protein (U) [Mass/Vol] 37 mg/dL High <14 [facility] Comment on above: Performed By: #### L AB420, [id number], [id number] ####Nailer Hand: JULI JONES ([phone])[facility])[address] [place] [address] Progress Noteon 10-03-2024 Progress Note OCCUPATIONAL THERAPY [facility] Name/MRN: Jessy Mckeon ([id number]) Date: 10/03/2024 Attempted to see pt for OT eval but pt declining at this time. Will continue to follow as schedule permits. Meera Michel, OT Normal [facility] Progress Note Normal [facility] RENAL FUNCTION PANELon 10-03 Albumin [Mass/Vol] 2.8 g/dL Low 3.5-5.0 [facility] Comment on above: Performed By: #### L AB19 ####Nailer Hand: JULI JONES ([phone])[facility])[address] [place] [address] Anion gap [Moles/Vol] 11 mmol/L Normal 3-13 [facility] Comment on above: Performed By: #### L AB19 ####Nailer Hand: JULI JONES ([phone])[facility])[address] [place] [address] Calcium [Mass/Vol] 8.5 mg/dL Normal 8.4-10.2 [facility] Comment on above: Performed By: #### L AB19 ####Nailer Hand: JULI JONES ([phone])[facility])[address] [place] [address] Chloride [Moles/Vol] 106 mmol/L Normal 98-107 [facility] Comment on above: Performed By: #### L AB19 ####Nailer Hand: JULI JONES ([phone])[facility] ([facility])[address] [place] [address] CO2 [Moles/Vol] 21 mmol/L Low 22-29 [facility] Comment on above: Performed By: #### L AB19 ####Nailer Hand: JULI JONES ([phone])[facility] ([facility])[address] [place] [address] Creatinine [Mass/Vol] 3.07 mg/dL High 0.57-1.11 [facility] Comment on above: Performed By: #### L AB19 ####Nailer Hand: JULI JONES ([phone])[facility] ([facility])[address] [place] [address] GLOMERULAR FILTRATION RATE ML/MIN/1.73 SQ M.PREDICTED 17.1 mL/min/1.73m*2 Low >60.0 [facility] Comment on above: Result Comment: Calc ulation based on the Chronic Kidney Disease Epidemiology Collaboration (CKD-EPI) equation refit without adjustment for race Performed By: #### L AB19 ####Nailer Hand: JULI JONES ([phone])[facility] ([facility])[address] [place] [address] Glucose [Mass/Vol] 83 mg/dL Normal 74-100 [facility] Comment on above: Performed By: #### L AB19 ####Nailer Hand: JULI [phone])[facility])[address] [place] [address] Phosphate [Mass/Vol] 4.2 mg/dL Normal 2.3-4.7 [facility] Comment on above: Performed By: #### L AB19 ####Nailer Hand: JULI JONES ([phone])[facility])[address] [place] [address] Potassium [Moles/Vol] 3.9 mmol/L Normal 3.5-5.1 [facility] Comment on above: Result Comment: [facility] potassium values may be up to 0.5 mmol/L lower than serum values. Performed By: #### L AB19 ####Nailer Hand: JULI JONES ([phone])[facility])[address] [place] [address] Sodium [Moles/Vol] 138 mmol/L Normal 136-145 [facility] Comment on above: Performed By: #### L AB19 ####Nailer Hand: JULI JONES ([phone])[facility])[address] [place] [address] Urea nitrogen [Mass/Vol] 37 mg/dL High 9-23 [facility] Comment on above: Performed By: #### L AB19 ####Nailer Hand: JULI JONES ([phone])[address] UREA NITROGEN, URINEon 10-03 CREATININE, URINE 33.7 mg/dL Low 47.0-110.0 [facility] Comment on above: Performed By: #### L AB420, SYT436, [id number] ####Nailer Hand: JULI JONES ([phone])[facility])[address] [place] [address] [place] UREA (BUN), URINE, FRACTIONAL EXCRETION 53.4 Normal [facility] Comment on above: Result Comment: Frac tional excretion of urea under 35% is consistent with a prerenal cause. Performed By: #### L AB420, PFL974, TSI263 ####Nailer Hand: JULI [phone])[facility] ([facility])[address] [place] [address] UREA (BUN), URINE, TUBULAR REABSORPTION 0.5 Normal [facility] Comment on above: Performed By: #### L AB420, BIF478, [id number] ####Nailer Hand: JULI JONES ([phone])[facility])[address] [place] [address] UREA NITROGEN, URINE 217 mg/dL Normal [facility] Comment on above: Performed By: #### L AB420, EDB170, [id number] ####Nailer Hand: JULI JONES ([phone])[facility] ([facility])[address] [place] [address] VASC US LOWER EXTREMITY VENO US DUPLEX BILATERALon 10-03-2024 VASC US LOWER EXTREMITY VENOUS DUPLEX BILATERAL Normal [facility] 36on 10-02-2024 36 Talked to patient an d relayed message from doctor and she will call for an ambulance to go to the ER. Normal [facility] 36 Advise go to ER Normal [facility] 36 Normal [facility] CBC WITH AUTO DIFFERENTIALon 10-02-2024 Basophils (Bld) [#/Vol] 0.0 10*3/uL Normal 0.0-0.2 [facility] Comment on above: Performed By: #### L [id number] ####Nailer Hand: JULI JONES ([phone])[facility] ([facility])[address] [place] [address] Basophils/100 WBC (Bld) 0.3 % Normal 0.0-2.0 [facility] Comment on above: Performed By: #### L [id number] ####Nailer Hand: JULI JONES ([phone])[facility] ([facility])[address] [place] [address] Eosinophils (Bld) [#/Vol] 0.3 10*3/uL Normal 0.0-0.5 [facility] Comment on above: Performed By: #### L [id number] ####Nailer Hand: JULI JONES ([phone])[place] [facility] ([facility])[address] [place] [address] [place] Eosinophils/100 WBC (Bld) 3.5 % Normal 0.0-6.0 [facility] Comment on above: Performed By: #### L [id number] ####Nailer Hand: JULI JONES ([phone])[facility] ([facility])[address] [place] [address] Erythrocyte distribution width (RBC) [Ratio] 14.6 % Normal 11.5-15.0 [facility] Comment on above: Performed By: #### L [id number] ####Nailer Hand: JULI JONES ([phone])[facility] ([facility])[address] [place] [address] Hematocrit (Bld) [Volume fraction] 28.0 % Low 35.0-47.0 [facility] Comment on above: Performed By: #### L [id number] ####Nailer Hand: JULI JONES ([phone])[facility] ([facility])[address] [place] [address] Hemoglobin (Bld) [Mass/Vol] 9.0 g/dL Low 11.7-16.0 [facility] Comment on above: Performed By: #### L [id number] ####Nailer Hand: JULI JONES ([phone])[facility] ([facility])[address] [place] [address] [place] IMMATURE GRANS % 0.3 % Normal 0.0-2.0 [facility] Comment on above: Performed By: #### L [id number] ####Nailer Hand: JULI JONES ([phone])[facility] ([facility])[address] [place] [address] IMMATURE GRANS ABSOLUTE 0.0 10*3/uL Normal <0.1 [facility] Comment on above: Performed By: #### L [id number] ####Nailer Hand: JULI JONES ([phone])[facility] ([facility])[address] [place] [address] [place] Lymphocytes (Bld) [#/Vol] 1.1 10*3/uL Normal 1.0-4.3 [facility] Comment on above: Performed By: #### L [id number] ####Nailer Hand: JULI JONES ([phone])[facility] ([facility])[address] [place] [address] [place] Lymphocytes/100 WBC (Bld) 15.5 % Normal 15.0-45.0 [facility] Comment on above: Performed By: #### L [id number] ####Nailer Hand: JULI JONES ([phone])[facility] ([facility])[address] [place] [address] MCH (RBC) [Entitic mass] 32.4 pg Normal 26.0-34.0 [facility] Comment on above: Performed By: #### L [id number] ####Nailer Hand: JULI JONES ([phone])[facility] ([facility])[address] [place] [address] MCHC 32.1 % Normal 30.5-36.0 [facility] Comment on above: Performed By: #### L [id number] ####Nailer Hand: JULI JONES ([phone])[facility] ([facility])[address] [place] [address] MCV (RBC) [Entitic vol] 100.7 fL High 77.0-99.0 [facility] Comment on above: Performed By: #### L [id number] ####Nailer Hand: JULI JONES ([phone])[facility] ([facility])[address] [place] [address] [place] Monocytes (Bld) [#/Vol] 0.9 10*3/uL Normal 0.0-0.9 [facility] Comment on above: Performed By: #### L [id number] ####Nailer Hand: JULI JONES ([phone])[place] [facility] ([facility])[address] [place] [address] [place] Monocytes/100 WBC (Bld) 12.5 % Normal 5.0-13.0 [facility] Comment on above: Performed By: #### L [id number] ####Nailer Hand: JULI JONES ([phone])[facility] ([facility])[address] [place] [address] [place] NEUTROPHILS ABSOLUTE 4.9 10*3/uL Normal 1.8-7.5 [facility] Comment on above: Performed By: #### L [id number] ####Nailer Hand: JULI JONES ([id number])[facility]OS[facility]ITALJohanny WIGGINS [place] (SWRLAB)[address] [place] [address] [place] Neutrophils/100 WBC (Bld) 67.9 % Normal 38.0-82.0 [facility] Comment on above: Performed By: #### L [id number] ####Nailer Hand: JULI JONES ([id number])[facility]ITALJohanny WIGGINS [place] (SWRLAB)[address] [place] [address] NRBC 0.0 /100 WBCs Normal 0.0-2.0 [facility] Comment on above: Performed By: #### L [id number] ####Nailer Hand: JULI JONES ([id number])[facility]ITALJohanny WIGG[facility] [place] (SWRLAB)[address] [place] [address] Platelet mean volume (Bld) [Entitic vol] 9.3 fL Normal 9.0-12.7 [facility] Comment on above: Result Comment: MPV is a calculated measurement using platelet volume ratio Performed By: #### L [id number] ####Nailer Hand: JULI JONES ([id number])[place] ([place])[address] Platelets (Bld) [#/Vol] 202 10*3/uL Normal 140-440 [facility] Comment on above: Performed By: #### L [id number] ####Nailer Hand: JULI JONES ([id number])[facility]ITALJohanny WIGGINS [place] (SWRLAB)[address] RBC (Bld) [#/Vol] 2.78 10*6/uL Low 3.80-5.20 [facility] Comment on above: Performed By: #### L [id number] ####Nailer Hand: JULI JONES ([id number])[facility]ITALJohanny [facility]IG[place] [place] (SWRL[place])[address] WBC (Bld) [#/Vol] 7.2 10*3/uL Normal 3.6-10.7 [facility] Comment on above: Performed By: #### L [id number] ####Nailer Hand: JULI JONES ([id number])[facility]ITALJohanny WIG[place] [place] (SWRL[place])[address] COMPLETE URINALYSISon 2024 BACTERIA (#/HPF) IN URINE Few Abnormal Negative [facility] Comment on above: Performed By: #### L [id number] ####Nailer Hand: JULI JONES ([phone])[facility]OSPITALJohanny WIGGINS RITTMAN (SWRLAB)[address] [place] [address] BILIRUBIN, TOTAL PRESENCE IN URINE Negative Normal Negative [facility] Comment on above: Performed By: #### L [id number] ####Nailer Hand: JULI JONES ([phone])[facility]ITALJohanny WIGGINS RITTMAN (SWRLAB)[address] [place] [address] Clarity (U) Clear Normal Clear [facility] Comment on above: Performed By: #### L [id number] ####Nailer Hand: JULI JONES ([phone])[facility]OS[facility]ITALJohanny WIGGINS RITTMAN (SWRLAB)[address] [place] [address] [place] Color (U) Colorless Normal Lt. Yellow [facility] Comment on above: Performed By: #### L [id number] ####Nailer Hand: JULI JONES ([phone])[facility]ITALJohanny WIGGINS RIT[place]AN (SWRLAB)[address] [place] [address] GLUCOSE (MG/DL) IN URINE Normal Normal Normal (<70) [facility] Comment on above: Performed By: #### L [id number] ####Nailer Hand: JULI JONES ([phone])[facility]ITALJohanny WIGGINS RITTMAN (SWRLAB)[address] [place] [address] HEMOGLOBIN PRESENCE IN URINE Negative Normal Negative [facility] Comment on above: Performed By: #### L [id number] ####Nailer Hand: JULI JONES ([phone])[facility]ITALJohanny WIGGINS RITTMAN (SWRLAB)[address] [place] [address] [place] Ketones Ql (U) Negative Normal Negative [facility] Comment on above: Performed By: #### L [id number] ####Nailer Hand: JULI JONES ([phone])[facility]ITALJohanny WIGGINS R[place] (SWRLAB)[address] [place] [address] LEUKOCYTE ESTERASE PRESENCE IN URINE BY TEST STRIP Negative Normal Negative [facility] Comment on above: Performed By: #### L [id number] ####Nailer Hand: JULI JONES ([phone])[facility]ITALJohanny WIGGINS R[place] (SWRLAB)[address] [place] [address] [place] NITRITE PRESENCE IN URINE Negative Normal Negative [facility] Comment on above: Performed By: #### L [id number] ####Nailer Hand: JULI JONES ([phone])[facility]ITALJohanny WIGGINS RITTMAN (SWRLAB)[address] [place] [address] [place] pH (U) 5.0 [pH] Normal 5.0-8.0 [facility] Comment on above: Performed By: #### L [id number] ####Nailer Hand: JULI JONES ([phone])[facility]ITALJohanny WIGGINS RITTMAN (SWRLAB)[address] [place] [address] Protein (U) [Mass/Vol] 10 mg/dL Abnormal Negative [facility] Comment on above: Performed By: #### L [id number] ####Nailer Hand: JULI JONES ([id number])[place] (SWRLAB)[address] [place] [address] [place] RBC (#/HPF) IN URINE SEDIMENT Negative Normal 0-2 [facility] Comment on above: Performed By: #### L [id number] ####Nailer Hand: JULI JONES ([id number])[facility]ITALJohanny WIGGINS R[place] (SWRLAB)[address] [place] [address] Specific gravity (U) [Rel density] 1.004 Low 1.005-1.03 0 [facility] Comment on above: Performed By: #### L [id number] ####Nailer Hand: JULI JONES ([phone])[facility]ITALJohanny WIGGINS R[place]TM[place] (SWRLAB)[address] [place] [address] Specimen volume (U) 12 mL Normal [facility] Comment on above: Performed By: #### L [id number] ####Nailer Hand: JULI JONES ([id number])[facility]ITALJohanny WIGGINS RITTMAN (SWRLAB)[address] [place] [address] SQUAMOUS EPITHELIAL CELLS (#/HPF) IN URINE SEDIMENT Negative Normal 3-5 [facility] Comment on above: Performed By: #### L [id number] ####Nailer Hand: JULI JONES ([phone])[facility]ITALJohanny WIGGINS RITTMAN (SWRLAB)[address] [place] [address] [place] UROBILINOGEN (MG/DL) IN URINE Normal Normal Normal (0-1) [facility] Comment on above: Performed By: #### L [id number] ####Nailer Hand: JULI JONES ([phone])SUMMJohanny [facility]IGGINS [facility] (SWRLAB)[address] [place] [address] [place] WBC (LEUKOCYTE) (#/HPF) IN URINE SEDIMENT Negative Normal 0-5 [facility] Comment on above: Performed By: #### L [id number] ####Nailer Hand: JULI JONES ([phone])[facility]ITALJohanny WIGGINS RITTMAN (SWRLAB)[address] COMPREHENSIVE METABOLIC PANE Nestor 10-02-2024 Albumin [Mass/Vol] 3.2 g/dL Low 3.5-5.0 [facility] Comment on above: Performed By: #### L AB17, [id number] ####Nailer Hand: JULI JONES ([id number])[facility]ITALJohanny WIGGINS R[place]TMAN (SWRLAB)[address] [place] [address] [place] ALP [Catalytic activity/Vol] 59 U/L Normal 40-150 [facility] Comment on above: Performed By: #### L AB17, [id number] ####Nailer Hand: JULI JONES ([phone])[facility]ITALJohanny WIGGINS RITTMAN (SWRLAB)[address] [place] [address] [place] ALT [Catalytic activity/Vol] U/L Normal <30 [facility] Comment on above: Performed By: #### L AB17, [id number] ####Nailer Hand: JULI JONES ([phone])[facility]ITALJohanny WIGGINS RITTMAN (SWRLAB)[address] [place] [address] [place] Anion gap [Moles/Vol] 10 mmol/L Normal 3-13 [facility] Comment on above: Performed By: #### L AB17, [id number] ####Nailer Hand: JULI JONES ([phone])[facility]ITALJohanny WIGGINS RITTMAN (SWRLAB)[address] [place] [address] [place] AST [Catalytic activity/Vol] 17 U/L Normal <34 [facility] Comment on above: Performed By: #### L AB17, [id number] ####Nailer Hand: JULI JONES ([id number])[place] [facility] (SWRLAB)[address] [place] [address] [place] Bilirubin [Mass/Vol] 0.3 mg/dL Normal <1.2 [facility] Comment on above: Performed By: #### L AB17, [id number] ####Nailer Hand: JULI JONES ([id number])[facility]ITALJohanny WIGGINS R[place]AN (SWRLAB)[address] [place] [address] [place] Calcium [Mass/Vol] 9.0 mg/dL Normal 8.4-10.2 [facility] Comment on above: Performed By: #### L AB17, [id number] ####Nailer Hand: JULI JONES ([id number])[facility]ITALJohanny WIGGINS R[place]TMAN (SWRLAB)[address] [place] [address] [place] Chloride [Moles/Vol] 102 mmol/L Normal 98-107 [facility] Comment on above: Performed By: #### L AB17, [id number] ####Nailer Hand: JULI JONES ([phone])[facility]ITALJohanny WIGGINS RITTMAN (SWRLAB)[address] [place] [address] [place] CO2 [Moles/Vol] 22 mmol/L Normal 22-29 [facility] Comment on above: Performed By: #### L AB17, [id number] ####Nailer Hand: JULI JONES ([phone])[facility]ITALJohanny WIGGINS RITTMAN (SWRLAB)[address] [place] [address] [place] Creatinine [Mass/Vol] 3.22 mg/dL High 0.57-1.11 [facility] Comment on above: Performed By: #### L AB17, [id number] ####Nailer Hand: JULI JONES ([phone])[facility]ITALJohanny WIGGINS RITTMAN (SWRLAB)[address] GLOMERULAR FILTRATION RATE ML/MIN/1.73 SQ M.PREDICTED 16.2 mL/min/1.73m*2 Low >60.0 [facility] Comment on above: Result Comment: Calc ulation based on the Chronic Kidney Disease Epidemiology Collaboration (CKD-EPI) equation refit without adjustment for race Performed By: #### L AB17, [id number] ####Nailer Hand: JULI JONES ([id number])[facility]ITALJohanny WIGGINS RITTMAN (SWRLAB)[address] [place] [address] [place] Glucose [Mass/Vol] 107 mg/dL High 74-100 [facility] Comment on above: Performed By: #### L AB17, [id number] ####Nailer Hand: JULI JONES ([phone])[facility]ITALJohanny WIGGINS RITTMAN (SWRLAB)[address] [place] [address] [place] Potassium [Moles/Vol] 3.8 mmol/L Normal 3.5-5.1 [facility] Comment on above: Result Comment: [facility] potassium values may be up to 0.5 mmol/L lower than serum values. Performed By: #### L AB17, [id number] ####Nailer Hand: JULI JONES ([phone])[facility]ITALJohanny WIGGINS R[place]TMAN (SWRLAB)[address] [place] [address] [place] Protein [Mass/Vol] 6.8 g/dL Normal 6.4-8.3 [facility] Comment on above: Performed By: #### L AB17, [id number] ####Nailer Hand: JULI JONES ([phone])[facility]ITALJohanny WIGGINS RITTMAN (SWRLAB)[address] [place] [address] [place] Sodium [Moles/Vol] 134 mmol/L Low 136-145 [facility] Comment on above: Performed By: #### L AB17, [id number] ####Nailer Hand: JULI JONES ([phone])[facility]ITALJohanny WIGGINS RITTMAN (SWRLAB)[address] [place] [address] [place] Urea nitrogen [Mass/Vol] 39 mg/dL High 9-23 [facility] Comment on above: Performed By: #### L AB17, [id number] ####Nailer Hand: JULI JONES ([id number])[facility]ITALJohanny MOURA (RLAB)[address] ED Nursing Noteon 10-02-2024 ED Nursing Note Patient given phone. Patient denies any additional needs. Normal [facility] ED Nursing Note Pt off of bedpan. No stool. States she was just passing gas. Awaits admit bed Normal [facility] ED Nursing Note Pt placed on bedpan for BM. Call light in reach Normal [facility] ED Nursing Note Infante emptied for 10 00cc prior to Lasix administration. Normal [facility] ED Nursing Note Pt placed in hospital gown Normal [facility] ED Nursing Note Attempted bladder sc an. Pt unable to tolerate. States she is going to "wet all over" and wants the catheter right now! Normal [facility] ED Nursing Note [facility] ED Provider Noteon ED Provider Note [facility] NT PRO BNPon 10-02-2024 Natriuretic peptide B (Bld) [Mass/Vol] 2097 pg/mL High <125 [facility] Comment on above: Performed By: #### L AB17, [id number] ####Nailer Hand: JULI JONES ([phone])[facility]ITALJohanny MORRISMER (RLAB)[address] [place] [address] Progress Noteon 09-18-2024 Progress Note [facility] 36on 09-14-2024 36 Please clarify the r efill amount for Jessy.s Klonopin. Notes states 60 days duration but there are 5 refills. [facility] Progress Noteon 09-14-2024 Progress Note [facility] 36on 09-13-2024 36 [facility] 36 Refill: Klonopin and Risperidone New pharmacy for [facility] 36 [facility] 36on 09-06-2024 36 [facility] 36 Jessy called asking if she is suppose to be taking her Cymbalta. She doesn't see it in the pills she is getting at the assisted living facility. [facility] Progress Noteon 09-04-2024 Progress Note Chart reviewed, 3rd attempt to contact patient for transitional program. Still unable to make contact with patient as VM box full and no one answered phone. At this time I will close patients transitional program as unable to contact. [facility] 36on 08-29-2024 36 [facility] 36on 08-27-2024 36 Normal [facility] 36on 08-23-2024 36 [facility] [id number] 08-21-2024 [id number] Patient Choice Patient Name: JESSY MCKEON Date of : 1965 [facility] Progress Noteon 08-21-2024 Progress Note Chart reviewed, phon e call to [facility] to see if patient was discharged home and per Saray at [facility] patient is still admitted with them at this time. [facility] 30on 08-10-2024 30 [facility] [id number] 08-10-2024 [id number] [facility] [id number] MAR & Discharge med list transmitted to Rehab- [facility] via [employer] per TCC request. Electronically signed by [facility] Lukasz Mcdaniels [facility] [phone] Discharge order note d. CM portion of IRASEMA updated. Task sent to [facility] to send discharge paperwork to [facility]. SW arranging transportation. RN aware. [facility] [phone] [facility] [phone] Spoke with robyn Lema patients mother, agreeable with [facility]. Secure chat Dr Schroeder, patient is ready today. [facility] land surveyorCorine is following. [facility] [phone] [facility] BASIC METABOLIC PANELon - Anion gap [Moles/Vol] 9 mmol/L Normal 3-13 [facility] Comment on above: Performed By: #### L AB15 ####Nailer Hand: JULI JONES ([phone])[facility])[address] [place] [address] Calcium [Mass/Vol] 8.6 mg/dL Normal 8.4-10.2 [facility] Comment on above: Performed By: #### L AB15 ####Nailer Hand: JULI JONES ([phone])[facility] ([facility])[address] [place] [address] Chloride [Moles/Vol] 99 mmol/L Normal 98-107 [facility] Comment on above: Performed By: #### L AB15 ####Nailer Hand: JULI JONES ([phone])[facility] ([facility])[address] [place] [address] CO2 [Moles/Vol] 23 mmol/L Normal 22-29 [facility] Comment on above: Performed By: #### L AB15 ####Nailer Hand: JULI JONES ([phone])[facility] ([facility])[address] [place] [address] Creatinine [Mass/Vol] 2.84 mg/dL High 0.57-1.11 [facility] Comment on above: Performed By: #### L AB15 ####Nailer Hand: JULI JONES ([phone])[facility])[address] [place] [address] GLOMERULAR FILTRATION RATE ML/MIN/1.73 SQ M.PREDICTED 18.8 mL/min/1.73m*2 Low >60.0 [facility] Comment on above: Result Comment: Calc ulation based on the Chronic Kidney Disease Epidemiology Collaboration (CKD-EPI) equation refit without adjustment for race Performed By: #### L AB15 ####Nailer Hand: JULI JONES ([phone])[facility] ([facility])[address] [place] [address] Glucose [Mass/Vol] 92 mg/dL Normal 74-100 [facility] Comment on above: Performed By: #### L AB15 ####Nailer Hand: JULI JONES ([phone])[facility])[address] [place] [address] [place] Potassium [Moles/Vol] 5.4 mmol/L High 3.5-5.1 [facility] Comment on above: Result Comment: [facility] potassium values may be up to 0.5 mmol/L lower than serum values. Performed By: #### L AB15 ####Nailer Hand: JULI JONES ([phone])[facility] ([facility])[address] [place] [address] Sodium [Moles/Vol] 131 mmol/L Low 136-145 [facility] Comment on above: Performed By: #### L AB15 ####Nailer Hand: JULI JONES ([phone])[facility] ([facility])[address] [place] [address] Urea nitrogen [Mass/Vol] 37 mg/dL High 9-23 [facility] Comment on above: Performed By: #### L AB15 ####Nailer Hand: JULI JONES ([phone])[facility] ([facility])[address] [place] [address] Basic metabolic 1998 panelon 08-10-2024 Anion gap [Moles/Vol] 9 mmol/L 3 - 13 mmol/L [facility] Calcium [Mass/Vol] 8.6 mg/dL 8.4 - 10. 2 mg/dL [facility] Chloride [Moles/Vol] 99 mmol/L 98 - 10 7 mmol/L [facility] CO2 [Moles/Vol] 23 mmol/L 22 - 29 mmol/L [facility] Creatinine [Mass/Vol] 2.84 mg/dL High 0.57 - 1.11 mg/dL [facility] GFR/1.73 sq M.predicted (S/P/Bld) [Vol rate/Area] 18.8 mL/min Low - PINF [facility] Comment on above: Calculation based on the Chronic Kidney Disease Epidemiology Collaboration (CKD-EPI) equation refit without adjustment for race Glucose [Mass/Vol] 92 mg/dL 74 - 100 mg/dL [facility] Interpretation and review of laboratory results Abnormal [facility] Potassium [Moles/Vol] 5.4 mmol/L High 3.5 - 5.1 mmol/L [facility] Comment on above: Plasma potassium batshe[place] ues may be up to 0.5 mmol/L lower than serum values. Sodium [Moles/Vol] 131 mmol/L Low 136 - 145 mmol/L [facility] Urea nitrogen [Mass/Vol] 37 mg/dL High 9 - 23 mg/dL [facility] CBC W Auto Differential pane l (Bld)on 08-10-2024 Basophils (Bld) [#/Vol] 0.1 10*3/uL 0.0 - 0.2 10*3/uL [facility] Basophils/100 WBC (Bld) 0.8 % 0.0 - 2.0 % [facility] Eosinophils (Bld) [#/Vol] 0.3 10*3/uL 0.0 - 0.5 10*3/uL [facility] Eosinophils/100 WBC (Bld) 3.8 % 0.0 - 6.0 % [facility] Erythrocyte distribution width (RBC) [Ratio] 13.8 % 11.5 - 15.0 % [facility] Hematocrit (Bld) [Volume fraction] 26 % Low 35.0 - 47.0 % [facility] Hemoglobin (Bld) [Mass/Vol] 8.2 g/dL Low 11.7 - 16.0 g/dL [facility] Immature granulocytes (Bld) [#/Vol] 0.4 10*3/uL High NINF - 0.1 10*3/uL [facility] Immature granulocytes/100 WBC (Bld) 4.9 % High 0.0 - 2.0 % [facility] Interpretation and review of laboratory results Abnormal [facility] Lymphocytes (Bld) [#/Vol] 2.6 10*3/uL 1.0 - 4.3 10*3/uL [facility] Lymphocytes/100 WBC (Bld) 35.5 % 15.0 - 45.0 % [facility] MCH (RBC) [Entitic mass] 31.3 pg 26.0 - 34.0 pg [facility] MCHC (RBC) [Mass/Vol] 31.5 % 30.5 - 36.0 % [facility] MCV (RBC) [Entitic vol] 99.2 fL High 77.0 - 99.0 fL [facility] Monocytes (Bld) [#/Vol] 1 10*3/uL High 0.0 - 0.9 10*3/uL [facility] Monocytes/100 WBC (Bld) 13.9 % High 5.0 - 13.0 % [facility] Neutrophils (Bld) [#/Vol] 3 10*3/uL 1.8 - 7.5 10*3/uL [facility] Neutrophils/100 WBC (Bld) 41.1 % 38.0 - 82.0 % [facility] Nucleated RBC/100 WBC (Bld) [Ratio] 0 % [facility] Platelet mean volume (Bld) [Entitic vol] 9 fL 9.0 - 12.7 fL [facility] Platelets (Bld) [#/Vol] 288 10*3/uL 140 - 440 10*3/uL [facility] RBC (Bld) [#/Vol] 2.62 10*6/uL Low 3.80 - 5.20 10*6/uL [facility] WBC (Bld) [#/Vol] 7.2 10*3/uL 3.6 - 10.7 10*3/uL [facility] CBC WITH AUTO DIFFERENTIALon 08-10-2024 Basophils (Bld) [#/Vol] 0.1 10*3/uL Normal 0.0-0.2 [facility] Comment on above: Performed By: #### L [id number] ####Nailer Hand: JULI JONES ([phone])[address] Basophils/100 WBC (Bld) 0.8 % Normal 0.0-2.0 [facility] Comment on above: Performed By: #### L [id number] ####Nailer Hand: JULI JONES ([phone])[facility])[address] [place] [address] Eosinophils (Bld) [#/Vol] 0.3 10*3/uL Normal 0.0-0.5 [facility] Comment on above: Performed By: #### L [id number] ####Nailer Hand: JULI JONES ([phone])[facility])[address] [place] [address] Eosinophils/100 WBC (Bld) 3.8 % Normal 0.0-6.0 [facility] Comment on above: Performed By: #### L [id number] ####Nailer Hand: JULI JONES ([phone])[address] Erythrocyte distribution width (RBC) [Ratio] 13.8 % Normal 11.5-15.0 [facility] Comment on above: Performed By: #### L [id number] ####Nailer Hand: JULI JONES ([phone])[address] Hematocrit (Bld) [Volume fraction] 26.0 % Low 35.0-47.0 [facility] Comment on above: Performed By: #### L [id number] ####Nailer Hand: JULI JONES ([phone])[address] Hemoglobin (Bld) [Mass/Vol] 8.2 g/dL Low 11.7-16.0 [facility] Comment on above: Performed By: #### L [id number] ####Nailer Hand: JULI JONES ([phone])[address] IMMATURE GRANS % 4.9 % High 0.0-2.0 [facility] Comment on above: Performed By: #### L [id number] ####Nailer Hand: JULI JONES ([phone])[address] IMMATURE GRANS ABSOLUTE 0.4 10*3/uL High <0.1 [facility] Comment on above: Performed By: #### L [id number] ####Nailer Hand: JULI JONES ([phone])[address] Lymphocytes (Bld) [#/Vol] 2.6 10*3/uL Normal 1.0-4.3 [facility] Comment on above: Performed By: #### L [id number] ####Nailer Hand: JULI JONES ([phone])[facility])[address] [place] [address] Lymphocytes/100 WBC (Bld) 35.5 % Normal 15.0-45.0 [facility] Comment on above: Performed By: #### L [id number] ####Nailer Hand: JULI JONES ([phone])[facility])[address] [place] [address] MCH (RBC) [Entitic mass] 31.3 pg Normal 26.0-34.0 [facility] Comment on above: Performed By: #### L [id number] ####Nailer Hand: JULI JONES ([phone])[facility])[address] [place] [address] MCHC 31.5 % Normal 30.5-36.0 [facility] Comment on above: Performed By: #### L [id number] ####Nailer Hand: JULI JONES ([phone])[facility])[address] [place] [address] MCV (RBC) [Entitic vol] 99.2 fL High 77.0-99.0 [facility] Comment on above: Performed By: #### L [id number] ####Nailer Hand: JULI JONES ([id number])[facility])[address] [place] [address] Monocytes (Bld) [#/Vol] 1.0 10*3/uL High 0.0-0.9 [facility] Comment on above: Performed By: #### L [id number] ####Nailer Hand: JULI JONES ([phone])[facility])[address] [place] [address] Monocytes/100 WBC (Bld) 13.9 % High 5.0-13.0 [facility] Comment on above: Performed By: #### L [id number] ####Nailer Hand: JULI JONES ([phone])[facility])[address] [place] [address] NEUTROPHILS ABSOLUTE 3.0 10*3/uL Normal 1.8-7.5 [facility] Comment on above: Performed By: #### L [id number] ####Nailer Hand: JULI JONES ([phone])[facility])[address] [place] [address] Neutrophils/100 WBC (Bld) 41.1 % Normal 38.0-82.0 [facility] Comment on above: Performed By: #### L [id number] ####Nailer Hand: JULI JONES ([phone])[facility] ([facility])[address] [place] [address] NRBC 0.0 /100 WBCs Normal 0.0-2.0 [facility] Comment on above: Performed By: #### L [id number] ####Nailer Hand: JULI JONES ([phone])[facility])[address] [place] [address] Platelet mean volume (Bld) [Entitic vol] 9.0 fL Normal 9.0-12.7 [facility] Comment on above: Performed By: #### L [id number] ####Nailer Hand: JULI JONES ([phone])[facility] ([facility])[address] [place] [address] Platelets (Bld) [#/Vol] 288 10*3/uL Normal 140-440 [facility] Comment on above: Performed By: #### L [id number] ####Nailer Hand: JULI JONES ([phone])[facility] ([facility])[address] [place] [address] RBC (Bld) [#/Vol] 2.62 10*6/uL Low 3.80-5.20 [facility] Comment on above: Performed By: #### L [id number] ####Nailer Hand: JULI JONES ([phone])[facility])[address] [place] [address] WBC (Bld) [#/Vol] 7.2 10*3/uL Normal 3.6-10.7 [facility] Comment on above: Performed By: #### L [id number] ####Nailer Hand: JULI JONES ([phone])[facility] ([facility])[address] [place] [address] Nursing Noteon 08-10-2024 Nursing Note Normal [facility] Progress Noteon 08-10-2024 Progress Note Nutrition update com pleted. Chart reviewed. Patient to be monitored and followed by the diet audiometric technician. Blanca Jackson, DT Normal [facility] 30on 08-09-2024 30 Normal [facility] BASIC METABOLIC PANELon 07-16 Anion gap [Moles/Vol] 7 mmol/L Normal 3-13 [facility] Comment on above: Performed By: #### L [id number] ####Nailer Hand: JULI JONES ([phone])[facility] ([facility])[address] [place] [address] Calcium [Mass/Vol] 8.7 mg/dL Normal 8.4-10.2 [facility] Comment on above: Performed By: #### L AB15 ####Nailer Hand: JULI JONES ([phone])[facility] ([facility])[address] [place] [address] [place] Chloride [Moles/Vol] 101 mmol/L Normal 98-107 [facility] Comment on above: Performed By: #### L AB15 ####Nailer Hand: JULI JONES ([phone])[facility] ([facility])[address] [place] [address] CO2 [Moles/Vol] 23 mmol/L Normal 22-29 [facility] Comment on above: Performed By: #### L AB15 ####Nailer Hand: JULI JONES ([phone])[facility] ([facility])[address] [place] [address] Creatinine [Mass/Vol] 2.79 mg/dL High 0.57-1.11 [facility] Comment on above: Performed By: #### L AB15 ####Nailer Hand: JULI JONES ([phone])[facility] ([facility])[address] [place] [address] GLOMERULAR FILTRATION RATE ML/MIN/1.73 SQ M.PREDICTED 19.2 mL/min/1.73m*2 Low >60.0 [facility] Comment on above: Result Comment: Calc ulation based on the Chronic Kidney Disease Epidemiology Collaboration (CKD-EPI) equation refit without adjustment for race Performed By: #### L AB15 ####Nailer Hand: JULI JONES ([phone])[facility])[address] [place] [address] Glucose [Mass/Vol] 81 mg/dL Normal 74-100 [facility] Comment on above: Performed By: #### L AB15 ####Nailer Hand: JULI JONES ([phone])[address] Potassium [Moles/Vol] 4.9 mmol/L Normal 3.5-5.1 [facility] Comment on above: Result Comment: [facility] potassium values may be up to 0.5 mmol/L lower than serum values. Performed By: #### L AB15 ####Nailer Hand: JULI JONES ([phone])[address] Sodium [Moles/Vol] 131 mmol/L Low 136-145 [facility] Comment on above: Performed By: #### L AB15 ####Nailer Hand: JULI JONES ([phone])[address] Urea nitrogen [Mass/Vol] 33 mg/dL High 9-23 [facility] Comment on above: Performed By: #### L AB15 ####Nailer Hand: JULI JONES ([phone])[address] Bacteria identified Cx Nom ( U)Ordered By: Osiris Nunez on 08-09-2024 Interpretation and review of laboratory results Abnormal [facility] Basic metabolic 1998 panelon 08-09-2024 Anion gap [Moles/Vol] 7 mmol/L 3 - 13 mmol/L [facility] Calcium [Mass/Vol] 8.7 mg/dL 8.4 - 10. 2 mg/dL [facility] Chloride [Moles/Vol] 101 mmol/L 98 - 10 7 mmol/L [facility] CO2 [Moles/Vol] 23 mmol/L 22 - 29 mmol/L [facility] Creatinine [Mass/Vol] 2.79 mg/dL High 0.57 - 1.11 mg/dL [facility] GFR/1.73 sq M.predicted (S/P/Bld) [Vol rate/Area] 19.2 mL/min Low - PINF [facility] Comment on above: Calculation based on the Chronic Kidney Disease Epidemiology Collaboration (CKD-EPI) equation refit without adjustment for race Glucose [Mass/Vol] 81 mg/dL 74 - 100 mg/dL [facility] Interpretation and review of laboratory results Abnormal [facility] Potassium [Moles/Vol] 4.9 mmol/L 3.5 - 5.1 mmol/L [facility] Comment on above: Plasma potassium batsheva ues may be up to 0.5 mmol/L lower than serum values. Sodium [Moles/Vol] 131 mmol/L Low 136 - 145 mmol/L [facility] Urea nitrogen [Mass/Vol] 33 mg/dL High 9 - 23 mg/dL [facility] CBC W Auto Differential pane l (Bld)Ordered By: Saray Fragoso on 08-09-2024 Erythrocyte distribution width (RBC) [Ratio] 13.7 % 11.5 - 15.0 % [facility] Hematocrit (Bld) [Volume fraction] 28.1 % Low 35.0 - 47.0 % [facility] Hemoglobin (Bld) [Mass/Vol] 8.8 g/dL Low 11.7 - 16.0 g/dL [facility] Interpretation and review of laboratory results Abnormal [facility] MCH (RBC) [Entitic mass] 31.5 pg 26.0 - 34.0 pg [facility] MCHC (RBC) [Mass/Vol] 31.3 % 30.5 - 36.0 % [facility] MCV (RBC) [Entitic vol] 100.7 fL High 77.0 - 99.0 fL [facility] Platelet mean volume (Bld) [Entitic vol] 9.1 fL 9.0 - 12.7 fL [facility] Platelets (Bld) [#/Vol] 288 10*3/uL 140 - 440 10*3/uL [facility] RBC (Bld) [#/Vol] 2.79 10*6/uL Low 3.80 - 5.20 10*6/uL [facility] WBC (Bld) [#/Vol] 6.7 10*3/uL 3.6 - 10.7 10*3/uL [facility] CBC WITH AUTO DIFFERENTIALon 08-09-2024 Erythrocyte distribution width (RBC) [Ratio] 13.7 % Normal 11.5-15.0 [facility] Comment on above: Performed By: #### L [id number], [id number] ####Nailer Hand: JULI JONES ([phone])[address] Hematocrit (Bld) [Volume fraction] 28.1 % Low 35.0-47.0 [facility] Comment on above: Performed By: #### L [id number], [id number] ####Nailer Hand: JULI JONES ([phone])[facility])[address] [place] [address] Hemoglobin (Bld) [Mass/Vol] 8.8 g/dL Low 11.7-16.0 [facility] Comment on above: Performed By: #### L [id number], [id number] ####Nailer Hand: JULI JONES ([phone])[address] MCH (RBC) [Entitic mass] 31.5 pg Normal 26.0-34.0 [facility] Comment on above: Performed By: #### L [id number], [id number] ####Nailer Hand: JULI JONES ([phone])[address] MCHC 31.3 % Normal 30.5-36.0 [facility] Comment on above: Performed By: #### L [id number], [id number] ####Nailer Hand: JULI JONES ([phone])[address] [place] [address] [place] MCV (RBC) [Entitic vol] 100.7 fL High 77.0-99.0 [facility] Comment on above: Performed By: #### L [id number], [id number] ####Nailer Hand: JULI JONES ([phone])[facility])[address] [place] [address] Platelet mean volume (Bld) [Entitic vol] 9.1 fL Normal 9.0-12.7 [facility] Comment on above: Performed By: #### L [id number], [id number] ####Nailer Hand: JULI JONES ([phone])[facility])[address] [place] [address] Platelets (Bld) [#/Vol] 288 10*3/uL Normal 140-440 [facility] Comment on above: Performed By: #### Kesha [id number], [id number] ####Nailer Hand: JULI JONES ([phone])[facility])[address] [place] [address] RBC (Bld) [#/Vol] 2.79 10*6/uL Low 3.80-5.20 [facility] Comment on above: Performed By: #### L [id number], [id number] ####Nailer Hand: JULI JONES ([phone])[facility])[address] [place] [address] WBC (Bld) [#/Vol] 6.7 10*3/uL Normal 3.6-10.7 [facility] Comment on above: Performed By: #### L [id number], [id number] ####Nailer Hand: JULI JONES ([phone])[address] Laboratory - Microbiology an d Antimicrobial susceptibilityOrdered By: Osiris Nunez on 08-09-2024 Bacteria identified Cx Nom (U) >100,000 CFU/mL Escherichia coli Abnormal [facility] MANUAL DIFFERENTIALon 2023 BAND NEUTROPHILS TOTAL PER COUNTED LEUKOCYTES BY MANUAL COUNT 2 Normal [facility] Comment on above: Performed By: #### L [id number], [id number] ####Nailer Hand: JULI JONES ([phone])[facility])[address] [place] [address] [place] BANDS 0.1 10*3/uL High <=0.0 [facility] Comment on above: Performed By: #### Kesha [id number], [id number] ####Nailer Hand: JULI JONES ([phone])[facility] ([facility])[address] [place] [address] CELLS COUNTED TOTAL (#) IN BLOOD 100 Normal [facility] Comment on above: Performed By: #### Kesha [id number], [id number] ####Nailer Hand: JULI JONES ([phone])[facility])[address] [place] [address] DIFFERENTIAL METHOD Manual differential performed Normal [facility] Comment on above: Performed By: #### Kesha [id number], [id number] ####Nailer Hand: JULI JONES ([phone])[facility])[address] [place] [address] [place] EOSINOPHILS (10*3/UL) IN BLOOD BY MANUAL COUNT 0.3 10*3/uL Normal 0.0-0.5 [facility] Comment on above: Performed By: #### Kesha [id number], [id number] ####Nailer Hand: JULI JONES ([phone])[facility] ([facility])[address] [place] [address] [place] EOSINOPHILS TOTAL PER COUNTED LEUKOCYTES BY MANUAL COUNT 5 High 0-1 [facility] Comment on above: Performed By: #### L [id number], [id number] ####Nailer Hand: JULI JONES ([phone])[facility])[address] [place] [address] [place] EOSINOPHILS/100 LEUKOCYTES IN BLOOD BY MANUAL COUNT 5 % Normal 0-6 [facility] Comment on above: Performed By: #### Kesha [id number], [id number] ####Nailer Hand: JULI JONES ([phone])[facility] ([facility])[address] [place] [address] [place] LEUKOCYTE MORPHOLOGY FINDING IN BLOOD Normal Normal [facility] Comment on above: Performed By: #### L [id number], [id number] ####Nailer Hand: JULI JONES ([phone])[facility] ([facility])[address] [place] [address] LEUKOCYTES (10*3/UL) NUCLEATED ERYTHROCYTE ADJUST 6.7 10*3/uL Normal 3.6-10.7 [facility] Comment on above: Performed By: #### L [id number], [id number] ####Nailer Hand: JULI JONES ([phone])[facility])[address] [place] [address] LYMPHOCYTES (10*3/UL) IN BLOOD BY MANUAL COUNT 3.3 10*3/uL Normal 1.0-4.3 [facility] Comment on above: Performed By: #### L [id number], [id number] ####Nailer Hand: JULI JONES ([phone])[facility] ([facility])[address] [place] [address] [place] LYMPHOCYTES TOTAL PER COUNTED LEUKOCYTES BY MANUAL COUNT 49 Normal [facility] Comment on above: Performed By: #### L [id number], [id number] ####Nailer Hand: JULI JONES ([phone])[facility])[address] [place] [address] [place] LYMPHOCYTES/100 LEUKOCYTES IN BLOOD BY MANUAL COUNT 49 % High 15-45 [facility] Comment on above: Performed By: #### L [id number], [id number] ####Nailer Hand: JULI JONES ([phone])[facility] ([facility])[address] [place] [address] [place] MONOCYTES (10*3/UL) IN BLOOD BY MANUAL COUNT 0.7 10*3/uL Normal 0.0-0.9 [facility] Comment on above: Performed By: #### L [id number], [id number] ####Nailer Hand: JULI JONES ([phone])[facility] ([facility])[address] [place] [address] [place] MONOCYTES TOTAL PER COUNTED LEUKOCYTES BY MANUAL COUNT 11 Normal [facility] Comment on above: Performed By: #### L [id number], [id number] ####Nailer Hand: JULI JONES ([phone])[facility])[address] [place] [address] [place] MONOCYTES/100 LEUKOCYTES IN BLOOD BY MANUAL COUNT 11 % Normal 5-13 [facility] Comment on above: Performed By: #### L [id number], [id number] ####Nailer Hand: JULI JONES ([phone])[facility])[address] [place] [address] [place] MYELOCYTES (10*3/UL) IN BLOOD BY MANUAL COUNT 0.3 10*3/uL High <=0.0 [facility] Comment on above: Performed By: #### L [id number], [id number] ####Nailer Hand: JULI JONES ([phone])[facility])[address] [place] [address] [place] MYELOCYTES COUNTED BY MANUAL COUNT 4 Normal [facility] Comment on above: Performed By: #### L [id number], [id number] ####Nailer Hand: JULI JONES ([phone])[facility])[address] [place] [address] [place] MYELOCYTES/100 LEUKOCYTES IN BLOOD BY MANUAL COUNT 4 % High <=0 [facility] Comment on above: Performed By: #### L [id number], [id number] ####Nailer Hand: JULI JONES ([phone])[facility])[address] [place] [address] [place] NEUTROPHILS (SEGS+BANDS) (10*3/UL) BY MANUAL COUNT 2.1 10*3/uL Normal 1.8-7.0 [facility] Comment on above: Performed By: #### L [id number], [id number] ####Nailer Hand: JULI JONES ([phone])[facility])[address] [place] [address] [place] NEUTROPHILS BAND FORM/100 LEUKOCYTES IN BLOOD BY MANUAL COUNT 2 % High <=0 [facility] Comment on above: Performed By: #### L [id number], [id number] ####Nailer Hand: JULI JONES ([phone])[facility] ([facility])[address] [place] [address] NEUTROPHILS TOTAL PER COUNTED LEUKOCYTES BY MANUAL COUNT 29 Normal [facility] Comment on above: Performed By: #### L [id number], [id number] ####Nailer Hand: JULI JONES ([phone])[facility] ([facility])[address] [place] [address] OVALOCYTES PRESENCE IN BLOOD BY LIGHT MICROSCOPY Slight Abnormal (none) [facility] Comment on above: Performed By: #### L [id number], [id number] ####Nailer Hand: JULI JONES ([phone])[facility])[address] [place] [address] PLATELET MORPHOLOGY IN BLOOD Normal Normal [facility] Comment on above: Performed By: #### L [id number], [id number] ####Nailer Hand: JULI JONES ([phone])[facility] ([facility])[address] [place] [address] POIKILOCYTOSIS (PRESENCE) IN BLOOD BY LIGHT MICROSCOPY Slight Abnormal (none) [facility] Comment on above: Performed By: #### L [id number], [id number] ####Nailer Hand: JULI JONES ([phone])[facility] ([facility])[address] [place] [address] SEGEMENTED NEUTROPHILS/100 LEUKOCYTES BY MANUAL COUNT 29 % Low 38-82 [facility] Comment on above: Performed By: #### L [id number], [id number] ####Nailer Hand: JULI JONES ([phone])[facility])[address] [place] [address] [place] SEGMENTED NEUTROPHILS (10*3/UL)IN BLOOD BY MANUAL COUNT 2.1 10*3/uL Normal 1.8-7.5 [facility] Comment on above: Performed By: #### L [id number], [id number] ####Nailer Hand: JULI JONES ([phone])[facility] ([address] Manual differential performe d Ql (Bld)on 08-09-2024 Band form neutrophils (Bld) [#/Vol] 0.1 10*3/uL High NINF - 0.0 10*3/uL [facility] Band form neutrophils/100 WBC (Bld) 2 % High NINF - 0 % [facility] Bands Manual 2 [facility] Cells Counted Total (Bld) [#] 100 {cells} [facility] Differential Method Manual differential performed [facility] Eosinophils (Bld) [#/Vol] 0.3 10*3/uL 0.0 - 0.5 10*3/uL [facility] Eosinophils Manual 5 High 0 - 1 [facility] Eosinophils/100 WBC (Bld) 5 % 0 - 6 % [facility] Interpretation and review of laboratory results Abnormal [facility] Leukocyte morphology finding Nom (Bld) Normal [facility] Lymphocytes (Bld) [#/Vol] 3.3 10*3/uL 1.0 - 4.3 10*3/uL [facility] Lymphocytes Manual 49 [facility] Lymphocytes/100 WBC (Bld) 49 % High 15 - 45 % [facility] Monocytes (Bld) [#/Vol] 0.7 10*3/uL 0.0 - 0.9 10*3/uL [facility] Monocytes Manual 11 [facility] Monocytes/100 WBC (Bld) 11 % 5 - 13 % [facility] Myelocytes (Bld) [#/Vol] 0.3 10*3/uL High NINF - 0.0 10*3/uL [facility] Myelocytes Manual 4 [facility] Myelocytes/100 WBC (Bld) 4 % High NINF - 0 % [facility] Neutrophils (Bld) [#/Vol] 2.1 10*3/uL 1.8 - 7.5 10*3/uL [facility] Neutrophils Manual 29 [facility] Ovalocytes LM Ql (Bld) Slight Abnormal (none) [facility] Platelet morphology finding Nom (Bld) Normal [facility] Poikilocytosis LM Ql (Bld) Slight Abnormal (none) [facility] Segmented neutrophils/100 WBC (Bld) 29 % Low 38 - 82 % [facility] WBC corrected for nucl RBC (Bld) [#/Vol] 6.7 10*3/uL 3.6 - 10.7 10*3/uL [facility] Nursing Noteon 08-09-2024 Nursing Note Normal [facility] Progress Noteon 08-09-2024 Progress Note Normal [facility] Progress Note Normal [facility] Progress Note Normal [facility] Progress Note Normal [facility] 30on 08-08-2024 30 Normal [facility] 30 Normal [facility] BASIC METABOLIC PANELon 07-16 Anion gap [Moles/Vol] 6 mmol/L Normal 3-13 [facility] Comment on above: Performed By: #### L [id number] ####Nailer Hand: JULI JONES ([phone])[facility] ([facility])[address] [place] [address] Calcium [Mass/Vol] 8.7 mg/dL Normal 8.4-10.2 [facility] Comment on above: Performed By: #### L AB15 ####Nailer Hand: JULI JONES ([phone])[facility] ([facility])[address] [place] [address] [place] Chloride [Moles/Vol] 100 mmol/L Normal 98-107 [facility] Comment on above: Performed By: #### L AB15 ####Nailer Hand: JULI JONES ([phone])[facility] ([facility])[address] [place] [address] [place] CO2 [Moles/Vol] 24 mmol/L Normal 22-29 [facility] Comment on above: Performed By: #### L AB15 ####Nailer Hand: JULI JONES ([phone])[facility] ([facility])[address] [place] [address] Creatinine [Mass/Vol] 2.73 mg/dL High 0.57-1.11 [facility] Comment on above: Performed By: #### L AB15 ####Nailer Hand: JULI JONES ([phone])[facility] ([facility])[address] [place] [address] GLOMERULAR FILTRATION RATE ML/MIN/1.73 SQ M.PREDICTED 19.7 mL/min/1.73m*2 Low >60.0 [facility] Comment on above: Result Comment: Calc ulation based on the Chronic Kidney Disease Epidemiology Collaboration (CKD-EPI) equation refit without adjustment for race Performed By: #### L AB15 ####Nailer Hand: JULI JONES ([phone])[facility])[address] [place] [address] Glucose [Mass/Vol] 94 mg/dL Normal 74-100 [facility] Comment on above: Performed By: #### L AB15 ####Nailer Hand: JULI JONES ([phone])[facility])[address] [place] [address] Potassium [Moles/Vol] 5.4 mmol/L High 3.5-5.1 [facility] Comment on above: Result Comment: [facility] potassium values may be up to 0.5 mmol/L lower than serum values. Performed By: #### L AB15 ####Nailer Hand: JULI JONES ([phone])[facility])[address] [place] [address] Sodium [Moles/Vol] 130 mmol/L Low 136-145 [facility] Comment on above: Performed By: #### L AB15 ####Nailer Hand: JULI JONES ([phone])[address] Urea nitrogen [Mass/Vol] 32 mg/dL High 9-23 [facility] Comment on above: Performed By: #### L AB15 ####Nailer Hand: JULI JONES ([phone])[facility])[address] [place] [address] Basic metabolic 1998 panelon 08-08-2024 Anion gap [Moles/Vol] 6 mmol/L 3 - 13 mmol/L [facility] Calcium [Mass/Vol] 8.7 mg/dL 8.4 - 10. 2 mg/dL [facility] Chloride [Moles/Vol] 100 mmol/L 98 - 10 7 mmol/L [facility] CO2 [Moles/Vol] 24 mmol/L 22 - 29 mmol/L [facility] Creatinine [Mass/Vol] 2.73 mg/dL High 0.57 - 1.11 mg/dL [facility] GFR/1.73 sq M.predicted (S/P/Bld) [Vol rate/Area] 19.7 mL/min Low - PINF [facility] Comment on above: Calculation based on the Chronic Kidney Disease Epidemiology Collaboration (CKD-EPI) equation refit without adjustment for race Glucose [Mass/Vol] 94 mg/dL 74 - 100 mg/dL [facility] Interpretation and review of laboratory results Abnormal [facility] Potassium [Moles/Vol] 5.4 mmol/L High 3.5 - 5.1 mmol/L [facility] Comment on above: Plasma potassium batsheva ues may be up to 0.5 mmol/L lower than serum values. Sodium [Moles/Vol] 130 mmol/L Low 136 - 145 mmol/L [facility] Urea nitrogen [Mass/Vol] 32 mg/dL High 9 - 23 mg/dL [facility] CBC W Auto Differential pane l (Bld)on 08-08-2024 Basophils (Bld) [#/Vol] 0.1 10*3/uL 0.0 - 0.2 10*3/uL [facility] Basophils/100 WBC (Bld) 0.7 % 0.0 - 2.0 % [facility] Eosinophils (Bld) [#/Vol] 0.2 10*3/uL 0.0 - 0.5 10*3/uL [facility] Eosinophils/100 WBC (Bld) 2.9 % 0.0 - 6.0 % [facility] Erythrocyte distribution width (RBC) [Ratio] 13.6 % 11.5 - 15.0 % [facility] Hematocrit (Bld) [Volume fraction] 26.7 % Low 35.0 - 47.0 % [facility] Hemoglobin (Bld) [Mass/Vol] 8.7 g/dL Low 11.7 - 16.0 g/dL [facility] Immature granulocytes (Bld) [#/Vol] 0.4 10*3/uL High NINF - 0.1 10*3/uL [facility] Immature granulocytes/100 WBC (Bld) 4.7 % High 0.0 - 2.0 % [facility] Interpretation and review of laboratory results Abnormal [facility] Lymphocytes (Bld) [#/Vol] 2.7 10*3/uL 1.0 - 4.3 10*3/uL [facility] Lymphocytes/100 WBC (Bld) 32.1 % 15.0 - 45.0 % [facility] MCH (RBC) [Entitic mass] 31.6 pg 26.0 - 34.0 pg [facility] MCHC (RBC) [Mass/Vol] 32.6 % 30.5 - 36.0 % [facility] MCV (RBC) [Entitic vol] 97.1 fL 77.0 - 99.0 fL [facility] Monocytes (Bld) [#/Vol] 0.8 10*3/uL 0.0 - 0.9 10*3/uL [facility] Monocytes/100 WBC (Bld) 9.9 % 5.0 - 13.0 % [facility] Neutrophils (Bld) [#/Vol] 4.1 10*3/uL 1.8 - 7.5 10*3/uL [facility] Neutrophils/100 WBC (Bld) 49.7 % 38.0 - 82.0 % [facility] Nucleated RBC/100 WBC (Bld) [Ratio] 0 % [facility] Platelet mean volume (Bld) [Entitic vol] 9.2 fL 9.0 - 12.7 fL [facility] Platelets (Bld) [#/Vol] 296 10*3/uL 140 - 440 10*3/uL [facility] RBC (Bld) [#/Vol] 2.75 10*6/uL Low 3.80 - 5.20 10*6/uL [facility] WBC (Bld) [#/Vol] 8.3 10*3/uL 3.6 - 10.7 10*3/uL [facility] CBC WITH AUTO DIFFERENTIALon 08-08-2024 Basophils (Bld) [#/Vol] 0.1 10*3/uL Normal 0.0-0.2 [facility] Comment on above: Performed By: #### L [id number] ####Nailer Hand: JULI JONES ([phone])[facility] ([address] Basophils/100 WBC (Bld) 0.7 % Normal 0.0-2.0 [facility] Comment on above: Performed By: #### L [id number] ####Nailer Hand: JULI JONES ([phone])[facility])[address] [place] [address] Eosinophils (Bld) [#/Vol] 0.2 10*3/uL Normal 0.0-0.5 [facility] Comment on above: Performed By: #### L [id number] ####Nailer Hand: JULI JONES ([phone])[facility])[address] [place] [address] Eosinophils/100 WBC (Bld) 2.9 % Normal 0.0-6.0 [facility] Comment on above: Performed By: #### L [id number] ####Nailer Hand: JULI JONES ([phone])[facility])[address] [place] [address] Erythrocyte distribution width (RBC) [Ratio] 13.6 % Normal 11.5-15.0 [facility] Comment on above: Performed By: #### L [id number] ####Nailer Hand: JULI JONES ([phone])[facility])[address] [place] [address] Hematocrit (Bld) [Volume fraction] 26.7 % Low 35.0-47.0 [facility] Comment on above: Performed By: #### L [id number] ####Nailer Hand: JULI JONES ([phone])[facility])[address] [place] [address] Hemoglobin (Bld) [Mass/Vol] 8.7 g/dL Low 11.7-16.0 [facility] Comment on above: Performed By: #### L [id number] ####Nailer Hand: JULI JONES ([phone])[facility])[address] [place] [address] IMMATURE GRANS % 4.7 % High 0.0-2.0 [facility] Comment on above: Performed By: #### L [id number] ####Nailer Hand: JULI JONES ([phone])[facility])[address] [place] [address] IMMATURE GRANS ABSOLUTE 0.4 10*3/uL High <0.1 [facility] Comment on above: Performed By: #### L [id number] ####Nailer Hand: JULI JONES ([phone])[facility])[address] [place] [address] Lymphocytes (Bld) [#/Vol] 2.7 10*3/uL Normal 1.0-4.3 [facility] Comment on above: Performed By: #### L [id number] ####Nailer Hand: JULI JONES ([phone])[address] Lymphocytes/100 WBC (Bld) 32.1 % Normal 15.0-45.0 [facility] Comment on above: Performed By: #### L [id number] ####Nailer Hand: JULI JONES ([phone])[facility])[address] [place] [address] MCH (RBC) [Entitic mass] 31.6 pg Normal 26.0-34.0 [facility] Comment on above: Performed By: #### L [id number] ####Nailer Hand: JULI JONES ([phone])[address] MCHC 32.6 % Normal 30.5-36.0 [facility] Comment on above: Performed By: #### L [id number] ####Nailer Hand: JULI JONES ([phone])[address] MCV (RBC) [Entitic vol] 97.1 fL Normal 77.0-99.0 [facility] Comment on above: Performed By: #### L [id number] ####Nailer Hand: JULI JONES ([phone])[facility] ([facility])[address] [place] [address] Monocytes (Bld) [#/Vol] 0.8 10*3/uL Normal 0.0-0.9 [facility] Comment on above: Performed By: #### L [id number] ####Nailer Hand: JULI JONES ([phone])[facility] ([facility])[address] [place] [address] Monocytes/100 WBC (Bld) 9.9 % Normal 5.0-13.0 [facility] Comment on above: Performed By: #### L [id number] ####Nailer Hand: JULI JONES ([phone])[facility] ([facility])[address] [place] [address] NEUTROPHILS ABSOLUTE 4.1 10*3/uL Normal 1.8-7.5 [facility] Comment on above: Performed By: #### L [id number] ####Nailer Hand: JULI JONES ([phone])[facility] ([facility])[address] [place] [address] Neutrophils/100 WBC (Bld) 49.7 % Normal 38.0-82.0 [facility] Comment on above: Performed By: #### L [id number] ####Nailer Hand: JULI JONES ([phone])[facility] ([facility])[address] [place] [address] NRBC 0.0 /100 WBCs Normal 0.0-2.0 [facility] Comment on above: Performed By: #### L [id number] ####Nailer Hand: JULI JONES ([phone])[facility] ([facility])[address] [place] [address] [place] Platelet mean volume (Bld) [Entitic vol] 9.2 fL Normal 9.0-12.7 [facility] Comment on above: Performed By: #### L [id number] ####Nailer Hand: JULI JONES ([phone])[facility] ([facility])[address] [place] [address] [place] Platelets (Bld) [#/Vol] 296 10*3/uL Normal 140-440 [facility] Comment on above: Performed By: #### L [id number] ####Nailer Hand: JULI JONES ([phone])[facility] ([facility])[address] [place] [address] RBC (Bld) [#/Vol] 2.75 10*6/uL Low 3.80-5.20 [facility] Comment on above: Performed By: #### L [id number] ####Nailer Hand: JULI JONES ([phone])[facility] ([facility])[address] [place] [address] WBC (Bld) [#/Vol] 8.3 10*3/uL Normal 3.6-10.7 [facility] Comment on above: Performed By: #### L [id number] ####Nailer Hand: JULI JONES ([phone])[facility] ([facility])[address] [place] [address] Laboratory - Chemistry and C hemistry - challengeon 08-08-2024 Glucose [Mass/Vol] 97 mg/dL 70 - 100 mg/dL [facility] No Panel Informationon 08-08 Interpretation and review of laboratory results Normal [facility] Performed by: [facility], [address] [place] [address] CLIA ID: [id number] [facility] Progress Noteon 08-08-2024 Progress Note Normal [facility] Progress Note Normal [facility] 30on 08-07-2024 30 Normal [facility] 30 Normal [facility] [id number] 08-07-[id number] Amb re quest in Round Trip as Will Call for [facility]. Trip can be edited if pt not able to go to [facility]. [facility] [phone] Spoke with patient, Stated [facility], will have [facility] [employer] aware. [facility] [phone] Plan SNF at al. ANTON following and will update AL at al. Normal [facility] [id number] ANTON reviewed media- n o DPOA on file. ANTON checked probate court- ( [facility]) no results of guardianship. Normal [facility] BASIC METABOLIC PANELon 12-2 Anion gap [Moles/Vol] 7 mmol/L Normal 3-13 [facility] Comment on above: Performed By: #### L AB15 ####Nailer Hand: JULI JONES ([phone])[facility])[address] [place] [address] Calcium [Mass/Vol] 8.6 mg/dL Normal 8.4-10.2 [facility] Comment on above: Performed By: #### L AB15 ####Nailer Hand: JULI JONES ([phone])[facility] ([facility])[address] [place] [address] [place] Chloride [Moles/Vol] 103 mmol/L Normal 98-107 [facility] Comment on above: Performed By: #### L AB15 ####Nailer Hand: JULI JONES ([phone])[facility] ([facility])[address] [place] [address] [place] CO2 [Moles/Vol] 23 mmol/L Normal 22-29 [facility] Comment on above: Performed By: #### L AB15 ####Nailer Hand: JULI JONES ([phone])[facility] ([facility])[address] [place] [address] Creatinine [Mass/Vol] 2.89 mg/dL High 0.57-1.11 [facility] Comment on above: Performed By: #### L AB15 ####Nailer Hand: JULI JONES ([phone])[facility] ([facility])[address] [place] [address] [place] GLOMERULAR FILTRATION RATE ML/MIN/1.73 SQ M.PREDICTED 18.4 mL/min/1.73m*2 Low >60.0 [facility] Comment on above: Result Comment: Calc ulation based on the Chronic Kidney Disease Epidemiology Collaboration (CKD-EPI) equation refit without adjustment for race Performed By: #### L AB15 ####Nailer Hand: JULI JONES ([phone])[facility] ([facility])[address] [place] [address] [place] Glucose [Mass/Vol] 114 mg/dL High 74-100 [facility] Comment on above: Performed By: #### L AB15 ####Nailer Hand: JULI JONES ([phone])[facility])[address] [place] [address] Potassium [Moles/Vol] 4.7 mmol/L Normal 3.5-5.1 [facility] Comment on above: Result Comment: [facility] potassium values may be up to 0.5 mmol/L lower than serum values. Performed By: #### L AB15 ####Nailer Hand: JULI JONES ([phone])[facility] ([facility])[address] [place] [address] [place] Sodium [Moles/Vol] 133 mmol/L Low 136-145 [facility] Comment on above: Performed By: #### L AB15 ####Nailer Hand: JULI JONES ([phone])[facility])[address] [place] [address] [place] Urea nitrogen [Mass/Vol] 34 mg/dL High 9-23 [facility] Comment on above: Performed By: #### L AB15 ####Nailer Hand: JULI JONES ([phone])[facility])[address] [place] [address] Basic metabolic 1998 panelon 08-07-2024 Anion gap [Moles/Vol] 7 mmol/L 3 - 13 mmol/L [facility] Calcium [Mass/Vol] 8.6 mg/dL 8.4 - 10. 2 mg/dL [facility] Chloride [Moles/Vol] 103 mmol/L 98 - 10 7 mmol/L [facility] CO2 [Moles/Vol] 23 mmol/L 22 - 29 mmol/L [facility] Creatinine [Mass/Vol] 2.89 mg/dL High 0.57 - 1.11 mg/dL [facility] GFR/1.73 sq M.predicted (S/P/Bld) [Vol rate/Area] 18.4 mL/min Low - PINF [facility] Comment on above: Calculation based on the Chronic Kidney Disease Epidemiology Collaboration (CKD-EPI) equation refit without adjustment for race Glucose [Mass/Vol] 114 mg/dL High 74 - 100 mg/dL [facility] Interpretation and review of laboratory results Abnormal [facility] Potassium [Moles/Vol] 4.7 mmol/L 3.5 - 5.1 mmol/L [facility] Comment on above: Plasma potassium [place] may be up to 0.5 mmol/L lower than serum values. Sodium [Moles/Vol] 133 mmol/L Low 136 - 145 mmol/L [facility] Urea nitrogen [Mass/Vol] 34 mg/dL High 9 - 23 mg/dL [facility] CBC W Auto Differential pane l (Bld)on 08-07-2024 Basophils (Bld) [#/Vol] 0 10*3/uL 0.0 - 0.2 10*3/uL [facility] Basophils/100 WBC (Bld) 0.5 % 0.0 - 2.0 % [facility] Eosinophils (Bld) [#/Vol] 0.3 10*3/uL 0.0 - 0.5 10*3/uL [facility] Eosinophils/100 WBC (Bld) 2.9 % 0.0 - 6.0 % [facility] Erythrocyte distribution width (RBC) [Ratio] 13.4 % 11.5 - 15.0 % [facility] Hematocrit (Bld) [Volume fraction] 25.8 % Low 35.0 - 47.0 % [facility] Hemoglobin (Bld) [Mass/Vol] 8.4 g/dL Low 11.7 - 16.0 g/dL [facility] Immature granulocytes (Bld) [#/Vol] 0.2 10*3/uL High NINF - 0.1 10*3/uL [facility] Immature granulocytes/100 WBC (Bld) 2.3 % High 0.0 - 2.0 % [facility] Interpretation and review of laboratory results Abnormal [facility] Lymphocytes (Bld) [#/Vol] 2.2 10*3/uL 1.0 - 4.3 10*3/uL [facility] Lymphocytes/100 WBC (Bld) 24.3 % 15.0 - 45.0 % [facility] MCH (RBC) [Entitic mass] 31.9 pg 26.0 - 34.0 pg [facility] MCHC (RBC) [Mass/Vol] 32.6 % 30.5 - 36.0 % [facility] MCV (RBC) [Entitic vol] 98.1 fL 77.0 - 99.0 fL [facility] Monocytes (Bld) [#/Vol] 1 10*3/uL High 0.0 - 0.9 10*3/uL [facility] Monocytes/100 WBC (Bld) 11.5 % 5.0 - 13.0 % [facility] Neutrophils (Bld) [#/Vol] 5.2 10*3/uL 1.8 - 7.5 10*3/uL [facility] Neutrophils/100 WBC (Bld) 58.5 % 38.0 - 82.0 % [facility] Nucleated RBC/100 WBC (Bld) [Ratio] 0 % [facility] Platelet mean volume (Bld) [Entitic vol] 9.1 fL 9.0 - 12.7 fL [facility] Platelets (Bld) [#/Vol] 265 10*3/uL 140 - 440 10*3/uL [facility] RBC (Bld) [#/Vol] 2.63 10*6/uL Low 3.80 - 5.20 10*6/uL [facility] WBC (Bld) [#/Vol] 8.9 10*3/uL 3.6 - 10.7 10*3/uL [facility] CBC WITH AUTO DIFFERENTIALon 08-07-2024 Basophils (Bld) [#/Vol] 0.0 10*3/uL Normal 0.0-0.2 [facility] Comment on above: Performed By: #### L [id number] ####Nailer Hand: JULI JONES ([phone])[facility] ([address] Basophils/100 WBC (Bld) 0.5 % Normal 0.0-2.0 [facility] Comment on above: Performed By: #### L [id number] ####Nailer Hand: JULI JONES ([phone])[facility])[address] [place] [address] Eosinophils (Bld) [#/Vol] 0.3 10*3/uL Normal 0.0-0.5 [facility] Comment on above: Performed By: #### L [id number] ####Nailer Hand: JULI JONES ([phone])[facility])[address] [place] [address] Eosinophils/100 WBC (Bld) 2.9 % Normal 0.0-6.0 [facility] Comment on above: Performed By: #### L [id number] ####Nailer Hand: JULI JONES ([phone])[address] Erythrocyte distribution width (RBC) [Ratio] 13.4 % Normal 11.5-15.0 [facility] Comment on above: Performed By: #### L [id number] ####Nailer Hand: JULI JONES ([phone])[address] Hematocrit (Bld) [Volume fraction] 25.8 % Low 35.0-47.0 [facility] Comment on above: Performed By: #### L [id number] ####Nailer Hand: JULI JONES ([phone])[facility])[address] [place] [address] Hemoglobin (Bld) [Mass/Vol] 8.4 g/dL Low 11.7-16.0 [facility] Comment on above: Performed By: #### L [id number] ####Nailer Hand: JULI JONES ([phone])[facility])[address] [place] [address] IMMATURE GRANS % 2.3 % High 0.0-2.0 [facility] Comment on above: Performed By: #### L [id number] ####Nailer Hand: JULI JONES ([phone])[facility])[address] [place] [address] IMMATURE GRANS ABSOLUTE 0.2 10*3/uL High <0.1 [facility] Comment on above: Performed By: #### L [id number] ####Nailer Hand: JULI JONES ([phone])[facility])[address] [place] [address] Lymphocytes (Bld) [#/Vol] 2.2 10*3/uL Normal 1.0-4.3 [facility] Comment on above: Performed By: #### L [id number] ####Nailer Hand: JULI JONES ([phone])[address] Lymphocytes/100 WBC (Bld) 24.3 % Normal 15.0-45.0 [facility] Comment on above: Performed By: #### L [id number] ####Nailer Hand: JULI JONES ([phone])[facility])[address] [place] [address] MCH (RBC) [Entitic mass] 31.9 pg Normal 26.0-34.0 [facility] Comment on above: Performed By: #### L [id number] ####Nailer Hand: JULI JONES ([phone])[facility])[address] [place] [address] MCHC 32.6 % Normal 30.5-36.0 [facility] Comment on above: Performed By: #### L [id number] ####Nailer Hand: JULI JONES ([phone])[facility])[address] [place] [address] MCV (RBC) [Entitic vol] 98.1 fL Normal 77.0-99.0 [facility] Comment on above: Performed By: #### L [id number] ####Nailer Hand: JULI JONES ([phone])[facility])[address] [place] [address] Monocytes (Bld) [#/Vol] 1.0 10*3/uL High 0.0-0.9 [facility] Comment on above: Performed By: #### L [id number] ####Nailer Hand: JULI JONES ([phone])[facility] ([facility])[address] [place] [address] Monocytes/100 WBC (Bld) 11.5 % Normal 5.0-13.0 [facility] Comment on above: Performed By: #### L [id number] ####Nailer Hand: JULI JONES ([phone])[facility] ([facility])[address] [place] [address] NEUTROPHILS ABSOLUTE 5.2 10*3/uL Normal 1.8-7.5 [facility] Comment on above: Performed By: #### L [id number] ####Nailer Hand: JULI JONES ([phone])[facility] ([facility])[address] [place] [address] Neutrophils/100 WBC (Bld) 58.5 % Normal 38.0-82.0 [facility] Comment on above: Performed By: #### L [id number] ####Nailer Hand: JULI JONES ([phone])[facility] ([facility])[address] [place] [address] NRBC 0.0 /100 WBCs Normal 0.0-2.0 [facility] Comment on above: Performed By: #### L [id number] ####Nailer Hand: JULI JONES ([phone])[facility] ([facility])[address] [place] [address] Platelet mean volume (Bld) [Entitic vol] 9.1 fL Normal 9.0-12.7 [facility] Comment on above: Performed By: #### L [id number] ####Nailer Hand: JULI JONES ([phone])[facility] ([facility])[address] [place] [address] Platelets (Bld) [#/Vol] 265 10*3/uL Normal 140-440 [facility] Comment on above: Performed By: #### L [id number] ####Nailer Hand: JULI JONES ([phone])[facility])[address] [place] [address] RBC (Bld) [#/Vol] 2.63 10*6/uL Low 3.80-5.20 [facility] Comment on above: Performed By: #### L [id number] ####Nailer Hand: JULI JONES ([phone])[facility] ([facility])[address] [place] [address] WBC (Bld) [#/Vol] 8.9 10*3/uL Normal 3.6-10.7 [facility] Comment on above: Performed By: #### L [id number] ####Nailer Hand: JULI JONES ([phone])[facility] ([facility])[address] [place] [address] Laboratory - Chemistry and C hemistry - challengeon 08-07-2024 Glucose [Mass/Vol] 108 mg/dL High 70 - 100 mg/dL [facility] No Panel Informationon 08-07 Interpretation and review of laboratory results Abnormal [facility] Performed by: [facility], [address] [place] [address] CLIA ID: [id number] [facility] Progress Noteon 08-07-2024 Progress Note Normal [facility] Progress Note Normal [facility] Progress Note Normal [facility] 30on 08-06-2024 30 Normal [facility] [id number] 08-06-2024 [id number] Normal [facility] [id number] Normal [facility] BASIC METABOLIC PANELon 07-16 Anion gap [Moles/Vol] 7 mmol/L Normal 3-13 [facility] Comment on above: Performed By: #### L AB113, LAB15, LAB68 ####Nailer Hand: JULI JONES ([phone])[facility] ([facility])[address] [place] [address] Calcium [Mass/Vol] 8.6 mg/dL Normal 8.4-10.2 [facility] Comment on above: Performed By: #### L AB113, LAB15, LAB68 ####Nailer Hand: JULI JONES ([phone])[facility] ([facility])[address] [place] [address] Chloride [Moles/Vol] 101 mmol/L Normal 98-107 [facility] Comment on above: Performed By: #### L AB113, LAB15, LAB68 ####Nailer Hand: JULI JONES ([phone])[facility] [place] [address] CO2 [Moles/Vol] 22 mmol/L Normal 22-29 [facility] Comment on above: Performed By: #### Kesha AB113, LAB15, LAB68 ####Nailer Hand: JULI JONES ([phone])[facility])[address] [place] [address] Creatinine [Mass/Vol] 3.13 mg/dL High 0.57-1.11 [facility] Comment on above: Performed By: #### Kesha AB113, LAB15, LAB68 ####Nailer Hand: JULI JONES ([phone])[facility])[address] [place] [address] GLOMERULAR FILTRATION RATE ML/MIN/1.73 SQ M.PREDICTED 16.7 mL/min/1.73m*2 Low >60.0 [facility] Comment on above: Result Comment: Calc ulation based on the Chronic Kidney Disease Epidemiology Collaboration (CKD-EPI) equation refit without adjustment for race Performed By: #### L AB113, LAB15, LAB68 ####Nailer Hand: JULI JONES ([phone])[facility] ([facility])[address] [place] [address] [place] Glucose [Mass/Vol] 80 mg/dL Normal 74-100 [facility] Comment on above: Performed By: #### L AB113, LAB15, LAB68 ####Nailer Hand: JULI [id number])[facility] Potassium [Moles/Vol] 4.3 mmol/L Normal 3.5-5.1 [facility] Comment on above: Result Comment: [facility] potassium values may be up to 0.5 mmol/L lower than serum values. Performed By: #### L AB113, LAB15, LAB68 ####Nailer Hand: JULI JONES ([phone])[facility] ([facility])[address] [place] [address] Sodium [Moles/Vol] 130 mmol/L Low 136-145 [facility] Comment on above: Performed By: #### L AB113, LAB15, LAB68 ####Nailer Hand: JULI JONES ([phone])[facility] ([facility])[address] [place] [address] Urea nitrogen [Mass/Vol] 30 mg/dL High - [facility] Comment on above: Performed By: #### L AB113, LAB15, LAB68 ####Nailer Hand: JULI JONES ([phone])[facility] [place] [address] Basic metabolic 1998 panelon 08-06-2024 Anion gap [Moles/Vol] 7 mmol/L 3 - 13 mmol/L [facility] Calcium [Mass/Vol] 8.6 mg/dL 8.4 - 10. 2 mg/dL [facility] Chloride [Moles/Vol] 101 mmol/L 98 - 10 7 mmol/L [facility] CO2 [Moles/Vol] 22 mmol/L 22 - 29 mmol/L [facility] Creatinine [Mass/Vol] 3.13 mg/dL High 0.57 - 1.11 mg/dL [facility] GFR/1.73 sq M.predicted (S/P/Bld) [Vol rate/Area] 16.7 mL/min Low - PINF [facility] Comment on above: Calculation based on the Chronic Kidney Disease Epidemiology Collaboration (CKD-EPI) equation refit without adjustment for race Glucose [Mass/Vol] 80 mg/dL 74 - 100 mg/dL [facility] Interpretation and review of laboratory results Abnormal [facility] Potassium [Moles/Vol] 4.3 mmol/L 3.5 - 5.1 mmol/L [facility] Comment on above: Plasma potassium [place] ues may be up to 0.5 mmol/L lower than serum values. Sodium [Moles/Vol] 130 mmol/L Low 136 - 145 mmol/L [facility] Urea nitrogen [Mass/Vol] 30 mg/dL High 9 - 23 mg/dL [facility] CBC W Auto Differential pane l (Bld)on 08-06-2024 Basophils (Bld) [#/Vol] 0.1 10*3/uL 0.0 - 0.2 10*3/uL [facility] Basophils/100 WBC (Bld) 0.6 % 0.0 - 2.0 % [facility] Eosinophils (Bld) [#/Vol] 0.3 10*3/uL 0.0 - 0.5 10*3/uL [facility] Eosinophils/100 WBC (Bld) 3.5 % 0.0 - 6.0 % [facility] Erythrocyte distribution width (RBC) [Ratio] 13.2 % 11.5 - 15.0 % [facility] Hematocrit (Bld) [Volume fraction] 28.4 % Low 35.0 - 47.0 % [facility] Hemoglobin (Bld) [Mass/Vol] 9 g/dL Low 11.7 - 16.0 g/dL [facility] Immature granulocytes (Bld) [#/Vol] 0.2 10*3/uL High NINF - 0.1 10*3/uL [facility] Immature granulocytes/100 WBC (Bld) 1.8 % 0.0 - 2.0 % [facility] Interpretation and review of laboratory results Abnormal [facility] Lymphocytes (Bld) [#/Vol] 2.6 10*3/uL 1.0 - 4.3 10*3/uL [facility] Lymphocytes/100 WBC (Bld) 30.7 % 15.0 - 45.0 % [facility] MCH (RBC) [Entitic mass] 31.1 pg 26.0 - 34.0 pg [facility] MCHC (RBC) [Mass/Vol] 31.7 % 30.5 - 36.0 % [facility] MCV (RBC) [Entitic vol] 98.3 fL 77.0 - 99.0 fL [facility] Monocytes (Bld) [#/Vol] 0.9 10*3/uL 0.0 - 0.9 10*3/uL [facility] Monocytes/100 WBC (Bld) 10.6 % 5.0 - 13.0 % [facility] Neutrophils (Bld) [#/Vol] 4.4 10*3/uL 1.8 - 7.5 10*3/uL [facility] Neutrophils/100 WBC (Bld) 52.8 % 38.0 - 82.0 % [facility] Nucleated RBC/100 WBC (Bld) [Ratio] 0 % [facility] Platelet mean volume (Bld) [Entitic vol] 9.2 fL 9.0 - 12.7 fL [facility] Platelets (Bld) [#/Vol] 271 10*3/uL 140 - 440 10*3/uL [facility] RBC (Bld) [#/Vol] 2.89 10*6/uL Low 3.80 - 5.20 10*6/uL [facility] WBC (Bld) [#/Vol] 8.3 10*3/uL 3.6 - 10.7 10*3/uL [facility] CBC WITH AUTO DIFFERENTIALon 08-06-2024 Basophils (Bld) [#/Vol] 0.1 10*3/uL Normal 0.0-0.2 [facility] Comment on above: Performed By: #### L [id number] ####Nailer Hand: JULI JONES ([phone])[address] Basophils/100 WBC (Bld) 0.6 % Normal 0.0-2.0 [facility] Comment on above: Performed By: #### L [id number] ####Nailer Hand: JULI JONES ([phone])[facility] ([facility])[address] [place] [address] Eosinophils (Bld) [#/Vol] 0.3 10*3/uL Normal 0.0-0.5 [facility] Comment on above: Performed By: #### L [id number] ####Nailer Hand: JULI JONES ([phone])[facility] ([facility])[address] [place] [address] [place] Eosinophils/100 WBC (Bld) 3.5 % Normal 0.0-6.0 [facility] Comment on above: Performed By: #### L [id number] ####Nailer Hand: JULI JONES ([phone])[facility])[address] [place] [address] Erythrocyte distribution width (RBC) [Ratio] 13.2 % Normal 11.5-15.0 [facility] Comment on above: Performed By: #### L [id number] ####Nailer Hand: JULI JONES ([phone])[facility])[address] [place] [address] Hematocrit (Bld) [Volume fraction] 28.4 % Low 35.0-47.0 [facility] Comment on above: Performed By: #### L [id number] ####Nailer Hand: JULI JONES ([phone])[address] Hemoglobin (Bld) [Mass/Vol] 9.0 g/dL Low 11.7-16.0 [facility] Comment on above: Performed By: #### L [id number] ####Nailer Hand: JULI JONES ([phone])[address] IMMATURE GRANS % 1.8 % Normal 0.0-2.0 [facility] Comment on above: Performed By: #### L [id number] ####Nailer Hand: JULI JONES ([phone])[address] IMMATURE GRANS ABSOLUTE 0.2 10*3/uL High <0.1 [facility] Comment on above: Performed By: #### L [id number] ####Nailer Hand: JULI JONES ([phone])[address] Lymphocytes (Bld) [#/Vol] 2.6 10*3/uL Normal 1.0-4.3 [facility] Comment on above: Performed By: #### L [id number] ####Nailer Hand: JULI JONES ([phone])[facility])[address] [place] [address] Lymphocytes/100 WBC (Bld) 30.7 % Normal 15.0-45.0 [facility] Comment on above: Performed By: #### L [id number] ####Nailer Hand: JULI JONES ([phone])[facility])[address] [place] [address] MCH (RBC) [Entitic mass] 31.1 pg Normal 26.0-34.0 [facility] Comment on above: Performed By: #### L [id number] ####Nailer Hand: JULI JONES ([phone])[facility])[address] [place] [address] MCHC 31.7 % Normal 30.5-36.0 [facility] Comment on above: Performed By: #### L [id number] ####Nailer Hand: JULI JONES ([phone])[facility] ([facility])[address] [place] [address] MCV (RBC) [Entitic vol] 98.3 fL Normal 77.0-99.0 [facility] Comment on above: Performed By: #### L [id number] ####Nailer Hand: JULI JONES ([phone])[facility])[address] [place] [address] Monocytes (Bld) [#/Vol] 0.9 10*3/uL Normal 0.0-0.9 [facility] Comment on above: Performed By: #### L [id number] ####Nailer Hand: JULI JONES ([phone])[facility])[address] [place] [address] Monocytes/100 WBC (Bld) 10.6 % Normal 5.0-13.0 [facility] Comment on above: Performed By: #### L [id number] ####Nailer Hand: JULI JONES ([phone])[facility])[address] [place] [address] NEUTROPHILS ABSOLUTE 4.4 10*3/uL Normal 1.8-7.5 [facility] Comment on above: Performed By: #### L [id number] ####Nailer Hand: JULI JONES ([phone])[facility] ([facility])[address] [place] [address] Neutrophils/100 WBC (Bld) 52.8 % Normal 38.0-82.0 [facility] Comment on above: Performed By: #### L [id number] ####Nailer Hand: JULI JONES ([phone])[facility] ([facility])[address] [place] [address] NRBC 0.0 /100 WBCs Normal 0.0-2.0 [facility] Comment on above: Performed By: #### L [id number] ####Nailer Hand: JULI JONES ([phone])[facility] ([facility])[address] [place] [address] Platelet mean volume (Bld) [Entitic vol] 9.2 fL Normal 9.0-12.7 [facility] Comment on above: Performed By: #### L [id number] ####Nailer Hand: JULI JONES ([phone])[facility] ([facility])[address] [place] [address] Platelets (Bld) [#/Vol] 271 10*3/uL Normal 140-440 [facility] Comment on above: Performed By: #### L [id number] ####Nailer Hand: JULI JONES ([phone])[facility] ([facility])[address] [place] [address] [place] RBC (Bld) [#/Vol] 2.89 10*6/uL Low 3.80-5.20 [facility] Comment on above: Performed By: #### L [id number] ####Nailer Hand: JULI JONES ([phone])[facility] ([facility])[address] [place] [address] [place] WBC (Bld) [#/Vol] 8.3 10*3/uL Normal 3.6-10.7 [facility] Comment on above: Performed By: #### L [id number] ####Nailer Hand: JULI JONES ([phone])[facility] ([facility])[address] [place] [address] FERRITINon 08-06-2024 Ferritin [Mass/Vol] 391 ng/mL High 5-204 [facility] Comment on above: Result Comment: HARRIET R COMMENTS:Ferritin levels below 10 ng/mL have been reported as indicative of iron deficiency anemia. Performed By: #### L AB113, LAB15, LAB68 ####Nailer Hand: JULI JONES ([phone])[facility] ([facility])[address] [place] [address] Ferritin [Mass/Vol]on 2023 Interpretation and review of laboratory results Abnormal [facility] Ferritin levels belo w 10 ng/mL have been reported as indicative of iron deficiency anemia. [facility] IRON AND TIBCon 08-06-2024 IRON BINDING CAPACITY 126 ug/dL Low 250-450 [facility] Comment on above: Performed By: #### L [id number] ####Nailer Hand: JULI JONES ([phone])[facility] ([facility])[address] [place] [address]#### [id number] ####Nailer Hand: BRENDA JEAN ([phone])[facility] ([facility])[address] [place] [address] IRON SATURATION 48.4 % Normal 20.0-50.0 [facility] Comment on above: Performed By: #### L [id number] ####Nailer Hand: JULI JONES ([phone])[facility] ([facility])[address] [place] [address]#### [id number] ####Nailer Hand: BRENDA JEAN ([phone])[facility] ([facility])[address] [id number] [facility] IRON, TOTAL 61 ug/dL Normal 50-170 [facility] Comment on above: Performed By: #### L [id number] ####Nailer Hand: JULI JONES ([phone])[facility] ([facility])[address]#### [id number] ####Nailer Hand: BRENDA JEAN ([phone])[facility] ([facility])[address] [place] [address] Iron and Iron binding capaci ty panelon 08-06-2024 Interpretation and review of laboratory results Abnormal [facility] Iron [Mass/Vol] 61 ug/dL 50 - 170 ug/dL [facility] Iron binding capacity [Mass/Vol] 126 ug/dL Low 250 - 450 ug/dL [facility] Iron saturation [Mass fraction] 48.4 % 20.0 - 50.0 % [facility] Laboratory - Chemistry and C hemistry - challengeOrdered By: Theresa Lozano on 08-06-2024 Sodium (24H U) [Mass/Vol] 21 mmol/L [facility] Laboratory - Chemistry and C hemistry - challengeon 08-06-2024 TSH Qn 0.72 m[IU]/L [facility] Ferritin [Mass/Vol] 391 ng/mL High 5 - 204 ng/mL [facility] Laboratory - Urinalysison Protein (U) [Mass/Vol] 80 mg/dL High NINF - 14 mg/dL [facility] No Panel InformationOrdered By: Theresa Lozano on 08-06-2024 CREATININE, URINE 37.4 mg/dL Low 47.0 - 110.0 mg/dL [facility] Interpretation and review of laboratory results Abnormal [facility] SODIUM, URINE, FRACTIONAL EXCRETION 1.4 [facility] SODIUM, URINE, TUBULAR REABSORPTION 1 [facility] No Panel Informationon 08-06 CREATININE, URINE 37.4 mg/dL Low 47.0 - 110.0 mg/dL [facility] Interpretation and review of laboratory results Abnormal [facility] PHOSPHORUSon 08-06-2024 Phosphate [Mass/Vol] 3.8 mg/dL Normal 2.3-4.7 [facility] Comment on above: Performed By: #### L AB113, LAB15, LAB68 ####Nailer Hand: JULI JONES ([phone])[facility])[address] [place] [address] [place] PROTEIN, URINE, RANDOMon CREATININE, URINE 37.4 mg/dL Low 47.0-110.0 [facility] Comment on above: Performed By: #### L [id number], [id number] ####Nailer Hand: JULI JONES ([phone])[facility])[address] [place] [address] Protein (U) [Mass/Vol] 80 mg/dL High <14 [facility] Comment on above: Performed By: #### L [id number], [id number] ####Nailer Hand: JULI JONES ([phone])[facility])[address] [place] [address] [place] Phosphate [Moles/Vol]on 07-16 Interpretation and review of laboratory results Normal [facility] Phosphate [Mass/Vol] 3.8 mg/dL 2.3 - 4 .7 mg/dL [facility] Progress Noteon 08-06-2024 Progress Note Normal [facility] Progress Note Normal [facility] Progress Note Normal [facility] SODIUM, URINE, RANDOMon 07-16 Sodium (U) [Moles/Vol] 21 mmol/L Normal [facility] Comment on above: Performed By: #### L [id number], [id number] ####Nailer Hand: JULI JONES ([phone])[facility])[address] [place] [address] [place] SODIUM, URINE, FRACTIONAL EXCRETION 1.4 Normal [facility] Comment on above: Performed By: #### L AB439, [id number] ####Nailer Hand: UJLI JONES ([phone])[facility])[address] [place] [address] SODIUM, URINE, TUBULAR REABSORPTION 1.0 Normal [facility] Comment on above: Performed By: #### L [id number], [id number] ####Nailer Hand: JULI JONES ([phone])[facility] ([facility])[address] [place] [address] THYROID STIMULATING HORMONEo n 08-06-2024 THYROID STIMULATING HORMONE 0.72 uIU/mL Normal 0.35-4.94 [facility] Comment on above: Performed By: #### L [id number] ####Nailer Hand: JULI JONES ([phone])[facility] ([facility])[address] [place] [address]#### [id number] ####Nailer Hand: BRENDA JEAN ([phone])[facility])[address] [place] [address] TSH Qnon 08-06-2024 Interpretation and review of laboratory results Normal [facility] US RETROPERITONEUM LIMITEDon 08-06-2024 US RETROPERITONEUM LIMITED Normal [facility] US Retroperitoneum limitedon 08-06-2024 Limited exam. The le ft kidney is not visualized. No right hydronephrosis. Questionable increased right renal echogenicity, which could be technical or due to chronic medical renal disease. Report Dictated on Electronically Signed By: Jose F Solomon MD Electronically Signed Date/Time: 08/06/2024 4:13 PM [facility] Patient [...] lay on side. Bladder: Normal sonographic appearance. [facility] Jose F Solomon MD - 08/06/2024 [facility] Name[facility] : 1965 [id number] Exam Date/Time: 08/06/2024 13:51 Procedure: US RETROPERITONEUM [...] Electronically Signed Date/Time: 08/06/2024 4:13 PM EST [facility] Radiology Study observation (narrative) [facility] Retroperitoneum limitedOr dered By: Jose F Solomon on 08-06-2024 [facility] Work Phone: 30on 08-05-2024 30 Normal [facility] COMPLETE URINALYSISon 2023 BACTERIA (#/HPF) IN URINE Many Abnormal Negative [facility] Comment on above: Performed By: #### L [id number], [id number] ####Nailer Hand: JULI JONES ([phone])[address] BILIRUBIN, TOTAL PRESENCE IN URINE Negative Normal Negative [facility] Comment on above: Performed By: #### L AB347, [id number] ####Nailer Hand: JULI JONES ([phone])[facility])[address] [place] [address] Clarity (U) Extra Turbid Abnormal Clear [facility] Comment on above: Performed By: #### L AB347, [id number] ####Nailer Hand: JULI JONES ([phone])[facility] ([facility])[address] [place] [address] Color (U) Yellow Normal Lt. Yellow [facility] Comment on above: Performed By: #### L AB347, [id number] ####Nailer Hand: JULI JONES ([phone])[facility])[address] [place] [address] GLUCOSE (MG/DL) IN URINE Normal Normal Normal (<70) [facility] Comment on above: Performed By: #### L AB347, [id number] ####Nailer Hand: JULI JONES ([phone])[facility] ([facility])[address] [place] [address] HEMOGLOBIN PRESENCE IN URINE 0.03 mg/dL Abnormal Negative [facility] Comment on above: Performed By: #### L AB347, [id number] ####Nailer Hand: JULI JONES ([phone])[facility] ([facility])[address] [place] [address] HYALINE CASTS (#/LPF) IN URINE SEDIMENT BY MICROSCOPY Negative Normal Negative [facility] Comment on above: Performed By: #### L AB347, [id number] ####Nailer Hand: JULI JONES ([phone])[facility])[address] [place] [address] Ketones Ql (U) Negative Normal Negative [facility] Comment on above: Performed By: #### L AB347, [id number] ####Nailer Hand: JULI JONES ([phone])[facility])[address] [place] [address] LEUKOCYTE ESTERASE PRESENCE IN URINE BY TEST STRIP 500 Devang/uL Abnormal Negative [facility] Comment on above: Performed By: #### L AB347, [id number] ####Nailer Hand: JULI JONES ([phone])[facility])[address] [place] [address] MUCUS (#/LPF) IN URINE SEDIMENT Few Normal Negative [facility] Comment on above: Performed By: #### L AB347, [id number] ####Nailer Hand: JULI JONES ([phone])[facility] ([facility])[address] [place] [address] NITRITE PRESENCE IN URINE Negative Normal Negative [facility] Comment on above: Performed By: #### L AB347, [id number] ####Nailer Hand: JULI JONES ([phone])[facility])[address] [place] [address] pH (U) 5.5 [pH] Normal 5.0-8.0 [facility] Comment on above: Performed By: #### L AB347, [id number] ####Nailer Hand: JULI JONES ([phone])[facility] ([facility])[address] [place] [address] Protein (U) [Mass/Vol] 50 mg/dL Abnormal Negative [facility] Comment on above: Performed By: #### L AB347, [id number] ####Nailer Hand: JULI JONES ([phone])[facility])[address] [place] [address] [place] RBC (#/HPF) IN URINE SEDIMENT 26-50 Abnormal 0-2 [facility] Comment on above: Performed By: #### L AB347, [id number] ####Nailer Hand: JULI JONES ([phone])[facility])[address] [place] [address] Specific gravity (U) [Rel density] 1.005 Normal 1.005-1.03 0 [facility] Comment on above: Performed By: #### L AB347, [id number] ####Nailer Hand: JULI JONES ([phone])[facility] ([facility])[address] [place] [address] SQUAMOUS EPITHELIAL CELLS (#/HPF) IN URINE SEDIMENT 3-5 Normal 3-5 [facility] Comment on above: Performed By: #### L AB347, [id number] ####Nailer Hand: JULI JONES ([phone])[facility])[address] [place] [address] UROBILINOGEN (MG/DL) IN URINE Normal Normal Normal (0-1) [facility] Comment on above: Performed By: #### L AB347, [id number] ####Nailer Hand: JULI JONES ([phone])[facility])[address] [place] [address] WBC (LEUKOCYTE) (#/HPF) IN URINE SEDIMENT >100 Abnormal 0-5 [facility] Comment on above: Performed By: #### L AB347, [id number] ####Nailer Hand: JULI JONES ([phone])[facility] ([facility])[address] [place] [address] WBC (LEUKOCYTE) CLUMPS (#/HPF) IN URINE SEDIMENT Many Abnormal Negative [facility] Comment on above: Performed By: #### L AB347, [id number] ####Nailer Hand: JULI JONES ([phone])[address] Nursing Noteon 08-05-2024 Nursing Note Pt refused bloodwork multiple times throughout night, benefits of daily bloodwork explained to pt. Unable to collect bloodwork, provider notified. Normal [facility] Progress Noteon 08-05-2024 Progress Note Normal [facility] Progress Note Nutrition rescreen completed. Chart reviewed. Patient to be monitored and followed by the diet audiometric technician. Normal [facility] Progress Note Normal [facility] URINE CULTUREon 08-05-2024 Bacteria identified Cx Nom (U) Normal [facility] Comment on above: Performed By: #### L AB347, [id number] ####Nailer Hand: JULI JONES ([phone])[facility] ([facility])[address] [place] [address] Urinalysis complete panel (U )Ordered By: Zehra Dougherty on 08-05-2024 Bacteria LM.HPF (Urine sed) [#/Area] Many Abnormal Negative /HPF [facility] Bilirubin Ql (U) Negative Negative mg/dL [facility] Clarity (U) Extra Turbid Abnormal Clear [facility] Color (U) Yellow Lt. Yellow [facility] Epithelial cells.squamous LM.HPF (Urine sed) [#/Area] 3-5 [facility] Glucose Ql (U) Normal Normal (<70) mg/dL [facility] Hemoglobin Ql (U) 0.03 mg/dL Abnormal Negative [facility] Hyaline casts Auto (Urine sed) [#/Area] Negative Negative /LPF [facility] Interpretation and review of laboratory results Abnormal [facility] Ketones (U) [Mass/Vol] Negative Negat jayne mg/dL [facility] Leukocyte clumps LM.HPF (Urine sed) [#/Area] Many Abnormal Negative /HPF [facility] Leukocyte esterase Test strip Ql (U) 500 Abnormal Negative Devang/uL [facility] Mucus LM.HPF (Urine sed) [#/Area] Few Negative /LPF [facility] Nitrite Ql (U) Negative Negative [facility] pH (U) 5.5 [pH] 5.0 - 8.0 pH [facility] Protein (U) [Mass/Vol] 50 mg/dL Abnormal Negative [facility] RBC LM.HPF (Urine sed) [#/Area] 26-50 Abnormal [facility] Specific gravity (U) [Rel density] 1.005 1.005 - 1.030 [facility] Urobilinogen (U) [Mass/Vol] Normal Normal (0-1) mg/dL [facility] WBC LM.HPF (Urine sed) [#/Area] /[HPF] Abnormal [facility] 30on 08-04-2024 30 Normal [facility] 30 Normal [facility] 30 Normal [facility] BASIC METABOLIC PANELon 07-16 Anion gap [Moles/Vol] 7 mmol/L Normal 3-13 [facility] Comment on above: Performed By: #### L AB15 ####Nailer Hand: JULI JONES ([phone])[facility] ([facility])[address] [place] [address] Calcium [Mass/Vol] 8.9 mg/dL Normal 8.4-10.2 [facility] Comment on above: Performed By: #### L AB15 ####Nailer Hand: JULI JONES ([phone])[facility] ([facility])[address] [place] [address] Chloride [Moles/Vol] 105 mmol/L Normal 98-107 [facility] Comment on above: Performed By: #### L AB15 ####Nailer Hand: JULI JONES ([phone])[facility] ([facility])[address] [place] [address] CO2 [Moles/Vol] 24 mmol/L Normal 22-29 [facility] Comment on above: Performed By: #### L AB15 ####Nailer Hand: JULI JONES ([phone])[facility] ([facility])[address] [place] [address] Creatinine [Mass/Vol] 2.88 mg/dL High 0.57-1.11 [facility] Comment on above: Performed By: #### L AB15 ####Nailer Hand: JULI JONES ([phone])[facility])[address] [place] [address] GLOMERULAR FILTRATION RATE ML/MIN/1.73 SQ M.PREDICTED 18.5 mL/min/1.73m*2 Low >60.0 [facility] Comment on above: Result Comment: Calc ulation based on the Chronic Kidney Disease Epidemiology Collaboration (CKD-EPI) equation refit without adjustment for race Performed By: #### L AB15 ####Nailer Hand: JULI JONES ([id number])[facility])[address] [place] [address] Glucose [Mass/Vol] 95 mg/dL Normal 74-100 [facility] Comment on above: Performed By: #### L AB15 ####Nailer Hand: JULI [id number])[facility])[address] [place] [address] Potassium [Moles/Vol] 3.9 mmol/L Normal 3.5-5.1 [facility] Comment on above: Result Comment: [facility] potassium values may be up to 0.5 mmol/L lower than serum values. Performed By: #### L AB15 ####Nailer Hand: JULI JONES ([phone])[facility])[address] [place] [address] Sodium [Moles/Vol] 136 mmol/L Normal 136-145 [facility] Comment on above: Performed By: #### L AB15 ####Nailer Hand: JULI JONES ([phone])[address] Urea nitrogen [Mass/Vol] 23 mg/dL Normal 9-23 [facility] Comment on above: Performed By: #### L AB15 ####Nailer Hand: JULI JONES ([phone])[facility])[address] [place] [address] Basic metabolic 1998 panelon 08-04-2024 Anion gap [Moles/Vol] 7 mmol/L 3 - 13 mmol/L [facility] Calcium [Mass/Vol] 8.9 mg/dL 8.4 - 10. 2 mg/dL [facility] Chloride [Moles/Vol] 105 mmol/L 98 - 10 7 mmol/L [facility] CO2 [Moles/Vol] 24 mmol/L 22 - 29 mmol/L [facility] Creatinine [Mass/Vol] 2.88 mg/dL High 0.57 - 1.11 mg/dL [facility] GFR/1.73 sq M.predicted (S/P/Bld) [Vol rate/Area] 18.5 mL/min Low - PINF [facility] Comment on above: Calculation based on the Chronic Kidney Disease Epidemiology Collaboration (CKD-EPI) equation refit without adjustment for race Glucose [Mass/Vol] 95 mg/dL 74 - 100 mg/dL [facility] Interpretation and review of laboratory results Abnormal [facility] Potassium [Moles/Vol] 3.9 mmol/L 3.5 - 5.1 mmol/L [facility] Comment on above: Plasma potassium [place] ues may be up to 0.5 mmol/L lower than serum values. Sodium [Moles/Vol] 136 mmol/L 136 - 145 mmol/L [facility] Urea nitrogen [Mass/Vol] 23 mg/dL 9 - 23 mg/dL [facility] CBC W Auto Differential pane l (Bld)on 08-04-2024 Basophils (Bld) [#/Vol] 0 10*3/uL 0.0 - 0.2 10*3/uL [facility] Basophils/100 WBC (Bld) 0.3 % 0.0 - 2.0 % [facility] Eosinophils (Bld) [#/Vol] 0.1 10*3/uL 0.0 - 0.5 10*3/uL [facility] Eosinophils/100 WBC (Bld) 1.2 % 0.0 - 6.0 % [facility] Erythrocyte distribution width (RBC) [Ratio] 13.2 % 11.5 - 15.0 % [facility] Hematocrit (Bld) [Volume fraction] 27.4 % Low 35.0 - 47.0 % [facility] Hemoglobin (Bld) [Mass/Vol] 8.8 g/dL Low 11.7 - 16.0 g/dL [facility] Immature granulocytes (Bld) [#/Vol] 0.1 10*3/uL High NINF - 0.1 10*3/uL [facility] Immature granulocytes/100 WBC (Bld) 0.7 % 0.0 - 2.0 % [facility] Interpretation and review of laboratory results Abnormal [facility] Lymphocytes (Bld) [#/Vol] 1.2 10*3/uL 1.0 - 4.3 10*3/uL [facility] Lymphocytes/100 WBC (Bld) 15.2 % 15.0 - 45.0 % [facility] MCH (RBC) [Entitic mass] 31.2 pg 26.0 - 34.0 pg [facility] MCHC (RBC) [Mass/Vol] 32.1 % 30.5 - 36.0 % [facility] MCV (RBC) [Entitic vol] 97.2 fL 77.0 - 99.0 fL [facility] Monocytes (Bld) [#/Vol] 0.8 10*3/uL 0.0 - 0.9 10*3/uL [facility] Monocytes/100 WBC (Bld) 10.4 % 5.0 - 13.0 % [facility] Neutrophils (Bld) [#/Vol] 5.5 10*3/uL 1.8 - 7.5 10*3/uL [facility] Neutrophils/100 WBC (Bld) 72.2 % 38.0 - 82.0 % [facility] Nucleated RBC/100 WBC (Bld) [Ratio] 0 % [facility] Platelet mean volume (Bld) [Entitic vol] 9.3 fL 9.0 - 12.7 fL [facility] Platelets (Bld) [#/Vol] 228 10*3/uL 140 - 440 10*3/uL [facility] RBC (Bld) [#/Vol] 2.82 10*6/uL Low 3.80 - 5.20 10*6/uL [facility] WBC (Bld) [#/Vol] 7.6 10*3/uL 3.6 - 10.7 10*3/uL [facility] CBC WITH AUTO DIFFERENTIALon 08-04-2024 Basophils (Bld) [#/Vol] 0.0 10*3/uL Normal 0.0-0.2 [facility] Comment on above: Performed By: #### L [id number] ####Nailer Hand: JULI JONES ([phone])[address] Basophils/100 WBC (Bld) 0.3 % Normal 0.0-2.0 [facility] Comment on above: Performed By: #### L [id number] ####Nailer Hand: JULI JONES ([phone])[facility] ([facility])[address] [place] [address] [place] Eosinophils (Bld) [#/Vol] 0.1 10*3/uL Normal 0.0-0.5 [facility] Comment on above: Performed By: #### L [id number] ####Nailer Hand: JULI JONES ([phone])[facility])[address] [place] [address] [place] Eosinophils/100 WBC (Bld) 1.2 % Normal 0.0-6.0 [facility] Comment on above: Performed By: #### L [id number] ####Nailer Hand: JULI JONES ([phone])[address] Erythrocyte distribution width (RBC) [Ratio] 13.2 % Normal 11.5-15.0 [facility] Comment on above: Performed By: #### L [id number] ####Nailer Hand: JULI JONES ([phone])[address] Hematocrit (Bld) [Volume fraction] 27.4 % Low 35.0-47.0 [facility] Comment on above: Performed By: #### L [id number] ####Nailer Hand: JULI JONES ([phone])[address] Hemoglobin (Bld) [Mass/Vol] 8.8 g/dL Low 11.7-16.0 [facility] Comment on above: Performed By: #### L [id number] ####Nailer Hand: JULI JONES ([phone])[address] IMMATURE GRANS % 0.7 % Normal 0.0-2.0 [facility] Comment on above: Performed By: #### L [id number] ####Nailer Hand: JULI JONES ([phone])[address] IMMATURE GRANS ABSOLUTE 0.1 10*3/uL High <0.1 [facility] Comment on above: Performed By: #### L [id number] ####Nailer Hand: JULI JONES ([phone])[address] Lymphocytes (Bld) [#/Vol] 1.2 10*3/uL Normal 1.0-4.3 [facility] Comment on above: Performed By: #### L [id number] ####Nailer Hand: JULI JONES ([phone])[facility])[address] [place] [address] Lymphocytes/100 WBC (Bld) 15.2 % Normal 15.0-45.0 [facility] Comment on above: Performed By: #### L [id number] ####Nailer Hand: JULI JONES ([phone])[facility])[address] [place] [address] MCH (RBC) [Entitic mass] 31.2 pg Normal 26.0-34.0 [facility] Comment on above: Performed By: #### L [id number] ####Nailer Hand: JULI JONES ([phone])[facility])[address] [place] [address] MCHC 32.1 % Normal 30.5-36.0 [facility] Comment on above: Performed By: #### L [id number] ####Nailer Hand: JULI JONES ([phone])[facility])[address] [place] [address] MCV (RBC) [Entitic vol] 97.2 fL Normal 77.0-99.0 [facility] Comment on above: Performed By: #### L [id number] ####Nailer Hand: JULI JONES ([phone])[facility])[address] [place] [address] Monocytes (Bld) [#/Vol] 0.8 10*3/uL Normal 0.0-0.9 [facility] Comment on above: Performed By: #### L [id number] ####Nailer Hand: JULI JONES ([phone])[facility])[address] [place] [address] Monocytes/100 WBC (Bld) 10.4 % Normal 5.0-13.0 [facility] Comment on above: Performed By: #### L [id number] ####Nailer Hand: JULI JONES ([phone])[facility])[address] [place] [address] NEUTROPHILS ABSOLUTE 5.5 10*3/uL Normal 1.8-7.5 [facility] Comment on above: Performed By: #### L [id number] ####Nailer Hand: JULI JONES ([phone])[facility] ([facility])[address] [place] [address] Neutrophils/100 WBC (Bld) 72.2 % Normal 38.0-82.0 [facility] Comment on above: Performed By: #### L [id number] ####Nailer Hand: JULI JONES ([phone])[facility] ([facility])[address] [place] [address] NRBC 0.0 /100 WBCs Normal 0.0-2.0 [facility] Comment on above: Performed By: #### L [id number] ####Nailer Hand: JULI JONES ([phone])[facility] ([facility])[address] [place] [address] Platelet mean volume (Bld) [Entitic vol] 9.3 fL Normal 9.0-12.7 [facility] Comment on above: Performed By: #### L [id number] ####Nailer Hand: JULI JONES ([phone])[facility] ([facility])[address] [place] [address] Platelets (Bld) [#/Vol] 228 10*3/uL Normal 140-440 [facility] Comment on above: Performed By: #### L [id number] ####Nailer Hand: JULI JONES ([phone])[facility] ([facility])[address] [place] [address] [place] RBC (Bld) [#/Vol] 2.82 10*6/uL Low 3.80-5.20 [facility] Comment on above: Performed By: #### L [id number] ####Nailer Hand: JULI JONES ([phone])[facility] ([facility])[address] [place] [address] [place] WBC (Bld) [#/Vol] 7.6 10*3/uL Normal 3.6-10.7 [facility] Comment on above: Performed By: #### L [id number] ####Nailer Hand: JULI JONES ([phone])[facility] ([address] Consulton 08-04-2024 Consult Normal [facility] Progress Noteon 08-04-2024 Progress Note Normal [facility] Progress Note Normal [facility] 30on 08-03-2024 30 Normal [facility] CBC W Auto Differential pane l (Bld)on 08-03-2024 Basophils (Bld) [#/Vol] 0 10*3/uL 0.0 - 0.2 10*3/uL [facility] Basophils/100 WBC (Bld) 0.2 % 0.0 - 2.0 % [facility] Eosinophils (Bld) [#/Vol] 0.1 10*3/uL 0.0 - 0.5 10*3/uL [facility] Eosinophils/100 WBC (Bld) 1.7 % 0.0 - 6.0 % [facility] Erythrocyte distribution width (RBC) [Ratio] 13.4 % 11.5 - 15.0 % [facility] Hematocrit (Bld) [Volume fraction] 27.8 % Low 35.0 - 47.0 % [facility] Hemoglobin (Bld) [Mass/Vol] 9.2 g/dL Low 11.7 - 16.0 g/dL [facility] Immature granulocytes (Bld) [#/Vol] 0.1 10*3/uL High NINF - 0.1 10*3/uL [facility] Immature granulocytes/100 WBC (Bld) 0.7 % 0.0 - 2.0 % [facility] Interpretation and review of laboratory results Abnormal [facility] Lymphocytes (Bld) [#/Vol] 2.2 10*3/uL 1.0 - 4.3 10*3/uL [facility] Lymphocytes/100 WBC (Bld) 26.4 % 15.0 - 45.0 % [facility] MCH (RBC) [Entitic mass] 31.7 pg 26.0 - 34.0 pg [facility] MCHC (RBC) [Mass/Vol] 33.1 % 30.5 - 36.0 % [facility] MCV (RBC) [Entitic vol] 95.9 fL 77.0 - 99.0 fL [facility] Monocytes (Bld) [#/Vol] 1.1 10*3/uL High 0.0 - 0.9 10*3/uL [facility] Monocytes/100 WBC (Bld) 13.2 % High 5.0 - 13.0 % [facility] Neutrophils (Bld) [#/Vol] 4.8 10*3/uL 1.8 - 7.5 10*3/uL [facility] Neutrophils/100 WBC (Bld) 57.8 % 38.0 - 82.0 % [facility] Nucleated RBC/100 WBC (Bld) [Ratio] 0 % [facility] Platelet mean volume (Bld) [Entitic vol] 9.6 fL 9.0 - 12.7 fL [facility] Comment on above: MPV is a calculated measurement using platelet volume ratio Platelets (Bld) [#/Vol] 229 10*3/uL 140 - 440 10*3/uL [facility] RBC (Bld) [#/Vol] 2.9 10*6/uL Low 3.80 - 5.20 10*6/uL [facility] WBC (Bld) [#/Vol] 8.4 10*3/uL 3.6 - 10.7 10*3/uL [facility] CBC WITH AUTO DIFFERENTIALon 08-03-2024 Basophils (Bld) [#/Vol] 0.0 10*3/uL Normal 0.0-0.2 [facility] Comment on above: Performed By: #### L [id number] ####Nailer Hand: JULI JONES ([phone])[facility] [employer] ([facility])[address] [place] [address] Basophils/100 WBC (Bld) 0.2 % Normal 0.0-2.0 [facility] Comment on above: Performed By: #### Kesha [id number] ####Nailer Hand: JULI JONES ([phone])[facility] [employer] ([facility])[address] [place] [address] Eosinophils (Bld) [#/Vol] 0.1 10*3/uL Normal 0.0-0.5 [facility] Comment on above: Performed By: #### L [id number] ####Nailer Hand: JULI JONES ([phone])[employer] ([employer])[address] [place] [address] [place] Eosinophils/100 WBC (Bld) 1.7 % Normal 0.0-6.0 [facility] Comment on above: Performed By: #### L [id number] ####Nailer Hand: JULI JONES ([phone])[facility] [employer] ([employer])[address] [place] [address] Erythrocyte distribution width (RBC) [Ratio] 13.4 % Normal 11.5-15.0 [facility] Comment on above: Performed By: #### L [id number] ####Nailer Hand: JULI JONES ([phone])[facility]ITALJ[facility] [employer] ([employer])[address] [place] [address] Hematocrit (Bld) [Volume fraction] 27.8 % Low 35.0-47.0 [facility] Comment on above: Performed By: #### L [id number] ####Nailer Hand: JULI JONES ([phone])[facility]ITALJ[facility] [employer] ([employer])[address] [place] [address] Hemoglobin (Bld) [Mass/Vol] 9.2 g/dL Low 11.7-16.0 [facility] Comment on above: Performed By: #### L [id number] ####Nailer Hand: JULI JONES ([phone])[employer] ([employer])[address] [place] [address] IMMATURE GRANS % 0.7 % Normal 0.0-2.0 [facility] Comment on above: Performed By: #### L [id number] ####Nailer Hand: JULI JONES ([phone])[facility]ITALJ[facility] [employer] ([employer])[address] [place] [address] IMMATURE GRANS ABSOLUTE 0.1 10*3/uL High <0.1 [facility] Comment on above: Performed By: #### L [id number] ####Nailer Hand: JULI JONES ([phone])[employer] ([employer])[address] [place] [address] Lymphocytes (Bld) [#/Vol] 2.2 10*3/uL Normal 1.0-4.3 [facility] Comment on above: Performed By: #### L [id number] ####Nailer Hand: JULI JONES ([phone])[facility]ITALJ[facility] [employer] ([employer])[address] [place] [address] Lymphocytes/100 WBC (Bld) 26.4 % Normal 15.0-45.0 [facility] Comment on above: Performed By: #### L [id number] ####Nailer Hand: JULI JONES ([phone])[facility]ITALJ[facility] [employer] ([employer])[address] [place] [address] MCH (RBC) [Entitic mass] 31.7 pg Normal 26.0-34.0 [facility] Comment on above: Performed By: #### L [id number] ####Nailer Hand: JULI JONES ([phone])[facility]ITALJ[facility] [employer] ([employer])[address] [place] [address] MCHC 33.1 % Normal 30.5-36.0 [facility] Comment on above: Performed By: #### L [id number] ####Nailer Hand: JULI JONES ([phone])[facility]ITALJ[facility] [employer] ([employer])[address] [place] [address] MCV (RBC) [Entitic vol] 95.9 fL Normal 77.0-99.0 [facility] Comment on above: Performed By: #### L [id number] ####Nailer Hand: JULI JONES ([phone])[facility]ITALJohanny [employer] ([employer])[address] [place] [address] [place] Monocytes (Bld) [#/Vol] 1.1 10*3/uL High 0.0-0.9 [facility] Comment on above: Performed By: #### L [id number] ####Nailer Hand: JULI JONES ([phone])[facility]ITALA [employer] [employer] ([employer])[address] [place] [address] [place] Monocytes/100 WBC (Bld) 13.2 % High 5.0-13.0 [facility] Comment on above: Performed By: #### L [id number] ####Nailer Hand: JULI JONES ([phone])[facility]ITALA [employer] ([employer])[address] [place] [address] [place] NEUTROPHILS ABSOLUTE 4.8 10*3/uL Normal 1.8-7.5 [facility] Comment on above: Performed By: #### L [id number] ####Nailer Hand: JULI OJNES ([phone])[facility]ITALA [employer] [employer] ([employer])[address] [place] [address] [place] Neutrophils/100 WBC (Bld) 57.8 % Normal 38.0-82.0 [facility] Comment on above: Performed By: #### L [id number] ####Nailer Hand: JULI JONES ([phone])[facility]ITALA [employer] [employer] ([facility])[address] [place] [address] [place] NRBC 0.0 /100 WBCs Normal 0.0-2.0 [facility] Comment on above: Performed By: #### L [id number] ####Nailer Hand: JULI JONES ([phone])[facility]ITALA [employer] [employer] ([facility])[address] [place] [address] [place] Platelet mean volume (Bld) [Entitic vol] 9.6 fL Normal 9.0-12.7 [facility] Comment on above: Result Comment: MPV is a calculated measurement using platelet volume ratio Performed By: #### L [id number] ####Nailer Hand: JULI JONES ([phone])[facility]ITALJohanny [facility] [employer] ([employer])[address] Platelets (Bld) [#/Vol] 229 10*3/uL Normal 140-440 [facility] Comment on above: Performed By: #### L [id number] ####Nailer Hand: JULI JONES ([phone])[facility]ITALJohanny [employer] [employer] ([facility])[address] RBC (Bld) [#/Vol] 2.90 10*6/uL Low 3.80-5.20 [facility] Comment on above: Performed By: #### L [id number] ####Nailer Hand: JULI JONES ([phone])[facility]ITALJoh[facility] [employer] [employer] ([facility])[address] WBC (Bld) [#/Vol] 8.4 10*3/uL Normal 3.6-10.7 [facility] Comment on above: Performed By: #### L [id number] ####Nailer Hand: JULI JONES ([phone])[facility]ITALJoh[facility] [employer] ([facility])[address] [place] [address] [address] METABOLIC PANE Nestor 08-03-2024 Albumin [Mass/Vol] 3.2 g/dL Low 3.5-5.0 [facility] Comment on above: Performed By: #### L [id number], LAB17 ####Nailer Hand: JULI JONES ([phone])[facility]ITALJoh[facility] [employer] ([facility])[address] ALP [Catalytic activity/Vol] 75 U/L Normal 40-150 [facility] Comment on above: Performed By: #### L AB106, LAB17 ####Nailer Hand: JULI JONES ([phone])[facility]ITALJoh[facility] [employer] ([facility])[address] ALT [Catalytic activity/Vol] U/L Normal <30 [facility] Comment on above: Performed By: #### L AB106, LAB17 ####Nailer Hand: JULI JONES ([phone])[facility]ITALJohanny [facility] [employer] ([employer])[address] [place] [address] [place] Anion gap [Moles/Vol] 6 mmol/L Normal 3-13 [facility] Comment on above: Performed By: #### L AB106, LAB17 ####Nailer Hand: JULI JONES ([phone])[facility]ITALJohanny [facility] [employer] ([employer])[address] [place] [address] [place] AST [Catalytic activity/Vol] 20 U/L Normal <34 [facility] Comment on above: Performed By: #### L AB106, LAB17 ####Nailer Hand: JULI JONES ([phone])[facility]ITALJohanny [facility] [employer] ([employer])[address] [place] [address] [place] Bilirubin [Mass/Vol] 0.3 mg/dL Normal <1.2 [facility] Comment on above: Performed By: #### L AB106, LAB17 ####Nailer Hand: JULI JONES ([phone])[facility]ITALJohanny [facility] [employer] ([employer])[address] [place] [address] [place] Calcium [Mass/Vol] 9.1 mg/dL Normal 8.4-10.2 [facility] Comment on above: Performed By: #### L AB106, LAB17 ####Nailer Hand: JULI JONES ([phone])[facility]ITALJohanny [employer] [employer] ([employer])[address] [place] [address] [place] Chloride [Moles/Vol] 101 mmol/L Normal 98-107 [facility] Comment on above: Performed By: #### L AB106, LAB17 ####Nailer Hand: JULI JONES ([phone])[facility]ITALJohanny [facility] [employer] ([employer])[address] [place] [address] [place] CO2 [Moles/Vol] 24 mmol/L Normal 22-29 [facility] Comment on above: Performed By: #### L AB106, LAB17 ####Nailer Hand: JULI JONES ([phone])[facility]ITALJohanny [facility] [employer] ([facility])[address] [place] [address] [place] Creatinine [Mass/Vol] 2.94 mg/dL High 0.57-1.11 [facility] Comment on above: Performed By: #### L AB106, LAB17 ####Nailer Hand: JULI JONES ([phone])[facility]ITALJohanny [facility] ([employer])[address] [place] [address] [place] GLOMERULAR FILTRATION RATE ML/MIN/1.73 SQ M.PREDICTED 18.1 mL/min/1.73m*2 Low >60.0 [facility] Comment on above: Result Comment: Calc ulation based on the Chronic Kidney Disease Epidemiology Collaboration (CKD-EPI) equation refit without adjustment for race Performed By: #### L AB106, LAB17 ####Nailer Hand: JULI JONES ([phone])[facility]ITALJ[facility] ([facility])[address] [place] [address] [place] Glucose [Mass/Vol] 85 mg/dL Normal 74-100 [facility] Comment on above: Performed By: #### L AB106, LAB17 ####Nailer Hand: JULI JONES ([phone])[facility]ITALJ[facility] [employer] ([facility])[address] [place] [address] [place] Potassium [Moles/Vol] 4.4 mmol/L Normal 3.5-5.1 [facility] Comment on above: Result Comment: [facility] potassium values may be up to 0.5 mmol/L lower than serum values. Performed By: #### L AB106, LAB17 ####Nailer Hand: JULI JONES ([phone])[facility]ITALJ[facility] ([facility])[address] [place] [address] [place] Protein [Mass/Vol] 6.9 g/dL Normal 6.4-8.3 [facility] Comment on above: Performed By: #### L AB106, LAB17 ####Nailer Hand: JULI JONES ([phone])[facility]ITALJohanny [facility]TM[facility] ([facility])[address] Sodium [Moles/Vol] 131 mmol/L Low 136-145 [facility] Comment on above: Performed By: #### L AB106, LAB17 ####Nailer Hand: JULI JONES ([phone])[facility]ITALJ[facility]VAL[facility]TM[facility] ([facility])[address] Urea nitrogen [Mass/Vol] 23 mg/dL Normal 9-23 [facility] Comment on above: Performed By: #### L [id number], LAB17 ####Nailer Hand: JULI JONES ([phone])[facility] ROSALIE DELVALLETMAN (SWRLAB)[address] Comprehensive metabolic 1998 panelon 08-03-2024 Albumin [Mass/Vol] 3.2 g/dL Low 3.5 - 5.0 g/dL [facility] ALP [Catalytic activity/Vol] 75 U/L 40 - 150 U/L [facility] ALT [Catalytic activity/Vol] U/L NINF - 30 U/L [facility] Anion gap [Moles/Vol] 6 mmol/L 3 - 13 mmol/L [facility] AST [Catalytic activity/Vol] 20 U/L BANNERF - 34 U/L [facility] Bilirubin [Mass/Vol] 0.3 mg/dL NINF - 1.2 mg/dL [facility] Calcium [Mass/Vol] 9.1 mg/dL 8.4 - 10. 2 mg/dL [facility] Chloride [Moles/Vol] 101 mmol/L 98 - 10 7 mmol/L [facility] CO2 [Moles/Vol] 24 mmol/L 22 - 29 mmol/L [facility] Creatinine [Mass/Vol] 2.94 mg/dL High 0.57 - 1.11 mg/dL [facility] GFR/1.73 sq M.predicted (S/P/Bld) [Vol rate/Area] 18.1 mL/min Low - PINF [facility] Comment on above: Calculation based on the Chronic Kidney Disease Epidemiology Collaboration (CKD-EPI) equation refit without adjustment for race Glucose [Mass/Vol] 85 mg/dL 74 - 100 mg/dL [facility] Interpretation and review of laboratory results Abnormal [facility] Potassium [Moles/Vol] 4.4 mmol/L 3.5 - 5.1 mmol/L [facility] Comment on above: Plasma potassium batsheva ues may be up to 0.5 mmol/L lower than serum values. Protein [Mass/Vol] 6.9 g/dL 6.4 - 8.3 g/dL [facility] Sodium [Moles/Vol] 131 mmol/L Low 136 - 145 mmol/L [facility] Urea nitrogen [Mass/Vol] 23 mg/dL 9 - 23 mg/dL [facility] D-DIMER,QUANTITATIVEon 08-03 D-DIMER, INNOVANCE 0.74 mg/L High <0.50 [facility] Comment on above: Result Comment: HARRIET Mayfield COMMENTS:Innovance D-Dimer values of <0.50 mg/L FEU can be used in combination with a pre-test probability model (e.g. Well's) to exclude pulmonary embolism (PE) disease, as well as an aid in the diagnosis of deep vein thrombosis (DVT). Performed By: #### L [id number] ####Nailer Hand: JULI JONES ([phone])[facility] ([address] ED Nursing Noteon 08-03-2024 ED Nursing Note Paramedics here to g et the pt to be transferred to [facility]. Normal [facility] ED Nursing Note Pt incontinent of ur ine with depends changed. Warm blankets provided and pt updated of admission status and estimated transfer times. Normal [facility] ED Nursing Note Pt sleeping with eye s closed and respirations even and unlabored. Lights are dimmed for comfort. Normal [facility] ED Nursing Note Pt declines offers o f bedside commode at current time. Pt updated and aware of admission status Normal [facility] ED Nursing Note Ice chips provided. Pt remains somnolent but wakes up easily to stimuli Pt repositioned with additional warm blankets provided. Lights dimmed for comfort Normal [facility] ED Nursing Note Normal [facility] ED Provider Noteon ED Provider Note Normal [facility] Fibrin D-dimer FEU (PPP) [Ma ss/Vol]on 08-03-2024 Interpretation and review of laboratory results Abnormal [facility] D-Dimer va lues of <0.50 mg/L FEU can be used in combination with a pre-test probability model (e.g. Well's) to exclude pulmonary embolism (PE) disease, as well as an aid in the diagnosis of deep vein thrombosis (DVT). [facility] Laboratory - Chemistry and C hemistry - challengeon 08-03-2024 Glucose [Mass/Vol] 101 mg/dL High 70 - 100 mg/dL [facility] Laboratory - Coagulationon 1 10-04-2023 Fibrin D-dimer FEU (PPP) [Mass/Vol] 0.74 mg/L High NINF - 0.50 mg/L [facility] NT PRO BNPon 08-03-2024 Natriuretic peptide B (Bld) [Mass/Vol] 784 pg/mL High <125 [facility] Comment on above: Performed By: #### L AB106, LAB17 ####Nailer Hand: JULI JONES ([phone])[facility] (SWRLAB)[address] [place] [address] Natriuretic peptide B [Mass/ Vol]on 08-03-2024 Interpretation and review of laboratory results Abnormal [facility] Natriuretic peptide B (Bld) [Mass/Vol] 784 pg/mL High NINF - 125 pg/mL [facility] No Panel Informationon 08-03 No evidence of deep venous thrombus in the evaluated veins of the bilateral lower extremities from the inguinal ligaments to the upper calf. Posterior tibial and peroneal veins were not visualized due to patient habitus and subcutaneous edema. Report Dictated on Electronically Signed By: Vu Carpio MD Electronically Signed Date/Time: 08/03/2024 2:04 PM [facility] [employer] SYSTEM Patient Name: JESSY WEN : 1965 [...] noted bilaterally. There is some subcutaneous edema. [facility] Vu Carpio MD - 08/03/2024 [facility] Name: [facility] MCKEON : 1965 [id number] Exam Date/Time: 08/03/2024 13:42 Procedure: [facility] US LOWER EXTREMITY VENOUS DUPLEX BILATERAL Ordering [...] Electronically Signed Date/Time: 08/03/2024 2:04 PM EST [employer] Interpretation and review of laboratory results Abnormal [facility] Performed by: [facility], [address] [place] [address] CLIA ID: [id number] [facility] Progress Noteon 12-20-2024 Progress Note Chart reviewed of ED follow up Seen in [facility] ED on 08/01/24 Reason: Contusion of Right Ankle Discharge instructions: Follow up with Edith Pierce MD (Family Medicine); If symptoms worsen ED message and education sent via [employer]. Normal [facility] VASC US LOWER EXTREMITY VENO US DUPLEX BILATERALon 08-03-2024 VASC US LOWER EXTREMITY VENOUS DUPLEX BILATERAL Normal [facility] XR Pelvis 1 or 2 Viewson No fracture or dislocation. Report Dictated on Electronically Signed By: Mary Nielsen MD Electronically Signed Date/Time: 08/03/2024 1:50 PM EST [facility] Patient Name: JESSY WEN : 1965 Exam Date/Time: 08/03/2024 13:35 Procedure: XR PELVIS [...] spinal fusion hardware at the lumbosacral junction. [facility] Mary Nielsen M D - 08/03/2024 Patient Name: JESSY MCKEON : 1965 Exam Date/Time: 08/03/2024 13:35 Procedure: XR PELVIS [...] Electronically Signed Date/Time: 08/03/2024 1:50 PM EST [facility] Radiology Study observation (narrative) [facility] XR Pelvis 1 or 2 ViewsOrdere d By: Mary Nielsen on 08-03-2024 [facility] Work Phone: BASIC METABOLIC PANELon 07-15 Anion gap [Moles/Vol] 9 mmol/L Normal 3-13 [facility] Comment on above: Performed By: #### L AB99, LAB24, LAB15, LAB20 ####Nailer Hand: BRENDA JEAN ([phone])[facility] ([facility])[address] [place] [address] Calcium [Mass/Vol] 9.0 mg/dL Normal 8.4-10.2 [facility] Comment on above: Performed By: #### L AB99, LAB24, LAB15, LAB20 ####Nailer Hand: BRENDA JEAN ([phone])[facility] Chloride [Moles/Vol] 102 mmol/L Normal 98-107 [facility] Comment on above: Performed By: #### L AB99, LAB24, LAB15, LAB20 ####Nailer Hand: BRENDA JEAN ([phone])[facility] CO2 [Moles/Vol] 21 mmol/L Low 22-29 [facility] Comment on above: Performed By: #### L AB99, LAB24, LAB15, LAB20 ####Nailer Hand: BRENDA JEAN ([phone])[facility] Creatinine [Mass/Vol] 3.18 mg/dL High 0.57-1.11 [facility] Comment on above: Performed By: #### L AB99, LAB24, LAB15, LAB20 ####Nailer Hand: BRENDA JEAN ([phone])[facility] ([facility])[address] GLOMERULAR FILTRATION RATE ML/MIN/1.73 SQ M.PREDICTED 16.4 mL/min/1.73m*2 Low >60.0 [facility] Comment on above: Result Comment: Calc ulation based on the Chronic Kidney Disease Epidemiology Collaboration (CKD-EPI) equation refit without adjustment for race Performed By: #### L AB99, LAB24, LAB15, LAB20 ####Nailer Hand: BRENDA JEAN ([phone])[facility] ([facility])[address] Glucose [Mass/Vol] 94 mg/dL Normal 74-100 [facility] Comment on above: Performed By: #### L AB99, LAB24, LAB15, LAB20 ####Nailer Hand: BRENDA JEAN ([phone])[facility] ([facility])[address] Potassium [Moles/Vol] 4.1 mmol/L Normal 3.5-5.1 [facility] Comment on above: Result Comment: [facility] potassium values may be up to 0.5 mmol/L lower than serum values. Performed By: #### L AB99, LAB24, LAB15, LAB20 ####Nailer Hand: BRENDA JEAN ([phone])[facility] ([facility])[address] [place] [address] [place] Sodium [Moles/Vol] 132 mmol/L Low 136-145 [facility] Comment on above: Performed By: #### L AB99, LAB24, LAB15, LAB20 ####Nailer Hand: BRENDA JEAN ([phone])[facility] ([facility])[address] Urea nitrogen [Mass/Vol] 19 mg/dL Normal 9-23 [facility] Comment on above: Performed By: #### L AB99, LAB24, LAB15, LAB20 ####Nailer Hand: BRENDA JEAN ([phone])[facility]ITAL[facility] (SBHLAB)[address] Basic metabolic 1998 panelon 08-01-2024 Anion gap [Moles/Vol] 9 mmol/L 3 - 13 mmol/L [facility] Calcium [Mass/Vol] 9 mg/dL 8.4 - 10. 2 mg/dL [facility] Chloride [Moles/Vol] 102 mmol/L 98 - 10 7 mmol/L [facility] CO2 [Moles/Vol] 21 mmol/L Low 22 - 29 mmol/L [facility] Creatinine [Mass/Vol] 3.18 mg/dL High 0.57 - 1.11 mg/dL [facility] GFR/1.73 sq M.predicted (S/P/Bld) [Vol rate/Area] 16.4 mL/min Low - PINF [facility] Comment on above: Calculation based on the Chronic Kidney Disease Epidemiology Collaboration (CKD-EPI) equation refit without adjustment for race Glucose [Mass/Vol] 94 mg/dL 74 - 100 mg/dL [facility] Potassium [Moles/Vol] 4.1 mmol/L 3.5 - 5.1 mmol/L [facility] Comment on above: Plasma potassium batsheva ues may be up to 0.5 mmol/L lower than serum values. Sodium [Moles/Vol] 132 mmol/L Low 136 - 145 mmol/L [facility] Urea nitrogen [Mass/Vol] 19 mg/dL 9 - 23 mg/dL [facility] CBC (HEMOGRAM)on 08-01-2024 Erythrocyte distribution width (RBC) [Ratio] 13.6 % Normal 11.5-15.0 [facility] Comment on above: Performed By: #### L AB294 ####Nailer Hand: BRENDA JEAN ([phone])[facility]ITALJ[facility]anny [facility]ITAL[facility] (SB[facility])[address] Hematocrit (Bld) [Volume fraction] 29.3 % Low 35.0-47.0 [facility] Comment on above: Performed By: #### L AB294 ####Nailer Hand: BRENDA JEAN ([phone])[facility] (SBHL[facility])[address] Hemoglobin (Bld) [Mass/Vol] 9.5 g/dL Low 11.7-16.0 [facility] Comment on above: Performed By: #### L AB294 ####Nailer Hand: BRENDA JEAN ([phone])[facility] [place] (SBHLAB)[address] MCH (RBC) [Entitic mass] 31.4 pg Normal 26.0-34.0 [facility] Comment on above: Performed By: #### L AB294 ####Nailer Hand: BRENDA JEAN ([phone])[facility] ([facility])[address] MCHC 32.4 % Normal 30.5-36.0 [facility] Comment on above: Performed By: #### L AB294 ####Nailer Hand: BRENDA JEAN ([phone])[facility] (SB[facility]AB)[address] MCV (RBC) [Entitic vol] 96.7 fL Normal 77.0-99.0 [facility] Comment on above: Performed By: #### L AB294 ####Nailer Hand: BRENDA JEAN ([phone])[facility] ([facility])[address] Platelet mean volume (Bld) [Entitic vol] 9.1 fL Normal 9.0-12.7 [facility] Comment on above: Performed By: #### L AB294 ####Nailer Hand: BRENDA JEAN ([phone])[facility] ([facility])[address] Platelets (Bld) [#/Vol] 185 10*3/uL Normal 140-440 [facility] Comment on above: Performed By: #### L AB294 ####Nailer Hand: BRENDA JEAN ([phone])[facility] ([facility])[address] RBC (Bld) [#/Vol] 3.03 10*6/uL Low 3.80-5.20 [facility] Comment on above: Performed By: #### L AB294 ####Nailer Hand: BRENDA JEAN ([phone])[facility]ITALJ[facility]anny [place] (SBHLAB)[address] WBC (Bld) [#/Vol] 11.0 10*3/uL High 3.6-10.7 [facility] Comment on above: Performed By: #### L AB294 ####Nailer Hand: BRENDA JEAN ([phone])[facility]ITALJohanny AARONHolly (SBHLAB)[address] CBC panel Auto (Bld)on 08-01 Erythrocyte distribution width (RBC) [Ratio] 13.6 % 11.5 - 15.0 % [facility] Hematocrit (Bld) [Volume fraction] 29.3 % Low 35.0 - 47.0 % [facility] Hemoglobin (Bld) [Mass/Vol] 9.5 g/dL Low 11.7 - 16.0 g/dL [facility] Interpretation and review of laboratory results Abnormal [facility] MCH (RBC) [Entitic mass] 31.4 pg 26.0 - 34.0 pg [facility] MCHC (RBC) [Mass/Vol] 32.4 % 30.5 - 36.0 % [facility] MCV (RBC) [Entitic vol] 96.7 fL 77.0 - 99.0 fL [facility] Platelet mean volume (Bld) [Entitic vol] 9.1 fL 9.0 - 12.7 fL [facility] Platelets (Bld) [#/Vol] 185 10*3/uL 140 - 440 10*3/uL [facility] RBC (Bld) [#/Vol] 3.03 10*6/uL Low 3.80 - 5.20 10*6/uL [facility] WBC (Bld) [#/Vol] 11 10*3/uL High 3.6 - 10.7 10*3/uL [facility] ED Nursing Noteon 08-01-2024 ED Nursing Note Normal [facility] ED Nursing Note Updated ETA 30 mins Normal [facility] ED Nursing Note Called rapid for US IV and blood draw. This RN attempted twice Normal [facility] ED Nursing Note Pt presents with EMS . Pt with fall yesterday and ankle pain. Pt is yellow in appearance. Pt with bruising in bilateral legs and +2 edema. Pt walks with walker.Pt is from assisted living [facility]. EMS unable to provider more information Normal [facility] ED Provider Noteon ED Provider Note Normal [facility] HEPATIC FUNCTION PANELon Albumin [Mass/Vol] 3.2 g/dL Low 3.5-5.0 [facility] Comment on above: Performed By: #### L AB99, LAB24, LAB15, LAB20 ####Nailer Hand: BRENDA JEAN ([phone])[facility])[address] ALP [Catalytic activity/Vol] 76 U/L Normal 40-150 [facility] Comment on above: Performed By: #### L AB99, LAB24, LAB15, LAB20 ####Nailer Hand: BRENDA JEAN ([phone])[facility] ([facility])[address] ALT [Catalytic activity/Vol] U/L Normal <30 [facility] Comment on above: Performed By: #### L AB99, LAB24, LAB15, LAB20 ####Nailer Hand: BRENDA JEAN ([phone])[facility] AST [Catalytic activity/Vol] 15 U/L Normal <34 [facility] Comment on above: Performed By: #### L AB99, LAB24, LAB15, LAB20 ####Nailer Hand: BRENDA JEAN ([phone])[facility])[address] Bilirubin [Mass/Vol] 0.4 mg/dL Normal <1.2 [facility] Comment on above: Performed By: #### L AB99, LAB24, LAB15, LAB20 ####Nailer Hand: BRENDA JEAN ([phone])[facility] ([facility])[address] [place] [address] Bilirubin.indirect [Mass/Vol] 0.2 mg/dL Normal <0.5 [facility] Comment on above: Performed By: #### L AB99, LAB24, LAB15, LAB20 ####Nailer Hand: BRENDA JEAN ([phone])[facility])[address] [place] [address] Protein [Mass/Vol] 6.9 g/dL Normal 6.4-8.3 [facility] Comment on above: Result Comment: Seru m protein values are higher than plasma values. Samples from recumbent persons are lower by up to 0.5 g/dL as compared to ambulatory persons. After 60 years values are lower by up to 0.2 g/dL. Performed By: #### L AB99, LAB24, LAB15, LAB20 ####Nailer Hand: BRENDA JEAN ([phone])[facility] ([facility])[address] [place] [address] Hepatic function 2000 panelo n 08-01-2024 Albumin [Mass/Vol] 3.2 g/dL Low 3.5 - 5.0 g/dL [facility] ALP [Catalytic activity/Vol] 76 U/L 40 - 150 U/L [facility] ALT [Catalytic activity/Vol] U/L NINF - 30 U/L [facility] [employer] AST [Catalytic activity/Vol] 15 U/L [facility] - 34 U/L [facility] Bilirubin [Mass/Vol] 0.4 mg/dL [facility] - 1.2 mg/dL [facility] Bilirubin.conjugated [Mass/Vol] 0.2 mg/dL [facility] - 0.5 mg/dL [facility] Protein [Mass/Vol] 6.9 g/dL 6.4 - 8.3 g/dL [facility] Comment on above: Serum protein values are higher than plasma values. Samples from recumbent persons are lower by up to 0.5 g/dL as compared to ambulatory persons. After 60 years values are lower by up to 0.2 g/dL. LAMOTRIGINE LEVEL ([facility]KR [facility] )on 08-01-2024 [facility] LAMOTRIGINE 15.5 mcg/mL High 2.5-15.0 [facility] Comment on above: Result Comment: This test was developed and its analytical performancecharacteristics have been determined by [employer] [place], [place]. It hasnot been cleared or approved by the U.S. Food and DrugAdministration. This assay has been validated pursuantto the CLIA regulations and is used for clinicalpurposes.Test Performed by [facility],[address] [place] [id number] Murrieta M.D., Ph.D., Director of [phone], CLIA [id number] Performed By: #### L AB475 ####[employer] ([employer])[address] [place] [address] [facility] LIPASEon 08-01-2024 Lipase [Catalytic activity/Vol] 39 U/L Normal <55 [facility] Comment on above: Performed By: #### L AB99, LAB24, LAB15, LAB20 ####Nailer Hand: BRENDA JEAN ([id number])[address] Laboratory - Chemistry and C hemistry - challengeon 08-01-2024 Lipase [Catalytic activity/Vol] 39 U/L NINF - 55 U/L [facility] Laboratory - Drug toxicology on 08-01-2024 Valproate [Mass/Vol] 63 ug/mL 50 - 12 5 ug/mL [facility] No Panel Informationon 08-01 Interpretation and review of laboratory results Abnormal [facility] [employer] Interpretation and review of laboratory results Normal [facility] Toxicity is seen at concentrations >175 ug/mL [facility] VALPROIC ACID TOTALon 2023 VALPROIC ACID 63 ug/mL Normal 50-125 [facility] Comment on above: Result Comment: HARRIET [place] COMMENTS:Toxicity is seen at concentrations >175 ug/mL Performed By: #### L AB99, LAB24, LAB15, LAB20 ####Nailer Hand: BRENDA JEAN ([phone])[place] [facility])[address] [place] [address] XR Ankle - right 3 Viewson 1 10-02-2023 No fracture or dislocation of the right ankle. Generalized soft tissue swelling. Small plantar heel spur. Report Dictated on Electronically Signed By: Sarah Hamm MD Electronically Signed Date/Time: 08/01/2024 3:09 PM EST [facility] Patient Name: JESSY WEN : [...] There is a small plantar heel spur. [facility] Sarah Hamm MD - 08/01/2024 Patient Name: [...] Electronically Signed Date/Time: 08/01/2024 3:09 PM EST [facility] Radiology Study observation (narrative) [facility] XR Foot - left 3 Viewson No fracture or dislocation of the left foot is seen. Severe hallux valgus. Nonspecific soft tissue swelling. Report Dictated on Electronically Signed By: Sarah Hamm MD Electronically Signed Date/Time: 08/01/2024 3:07 PM [facility] RADIOLOGY SYSTEM Patient [...] radiopaque foreign body or soft tissue gas. [facility] Sarah Hamm MD - 08/01/2024 Patient Name: [...] Signed Date/Time: 08/01/2024 3:07 PM EST [facility] Radiology Study observation (narrative) [facility] XR Foot - right 3 Viewson Radiology Study observation (narrative) [facility] Laterally dislocated second MTP joint and laterally subluxed or dislocated first MTP joint. Osteopenia. Extensive soft tissue edema/swelling. Report Dictated on Electronically Signed By: Joyce Darby MD Electronically Signed Date/Time: 08/01/2024 2:51 PM [facility] Patient [...] the distal leg, ankle and foot present. [facility] Joyce Darby MD - 08/01/2024 Patient Name: [...] Electronically Signed Date/Time: 08/01/2024 2:51 PM EST [facility] XR Foot - right 3 ViewsOrder ed By: Joyce Darby on 08-01-2024 [facility] [employer] Work Phone: XR Tibia and Fibula - right 2 Viewson 08-01-2024 No fracture or dislocation of the right tibia or fibula is identified. Generalized soft tissue swelling. Report Dictated on Electronically Signed By: Saarh Hamm MD Electronically Signed Date/Time: 08/01/2024 3:08 PM [facility] Patient [...] radiopaque foreign body or soft tissue gas. [facility] Sarah Hamm MD - 08/01/2024 Patient [...] Electronically Signed Date/Time: 08/01/2024 3:08 PM EST [facility] Radiology Study observation (narrative) [facility] XR Tibia and Fibula - right 2 ViewsOrdered By: Sarah Hamm on 08-01-2024 [facility] 36on 07-05-2024 36 VM is full Normal [facility] 30on 07-04-2024 30 Normal [facility] [id number] 07-04-2024 [id number] Normal [facility] 36on 07-04-2024 36 VM is full Normal [facility] 36 [facility] llow-up patient should also follow-up with her manifest clerk Normal [facility] BASIC METABOLIC PANELon 11-2 -2023 Anion gap [Moles/Vol] 5 mmol/L Normal 3-13 [facility] Comment on above: Performed By: #### L AB15 ####Nailer Hand: BRENDA JEAN ([phone])[facility] ([facility])[address] [place] [address] Calcium [Mass/Vol] 8.8 mg/dL Normal 8.4-10.4 [facility] Comment on above: Performed By: #### L AB15 ####Nailer Hand: BRENDA JEAN ([phone])[facility] [place] [address] [place] Chloride [Moles/Vol] 99 mmol/L Normal 98-107 [facility] Comment on above: Performed By: #### L AB15 ####Nailer Hand: BRENDA JEAN ([phone])[facility] ([facility])[address] CO2 [Moles/Vol] 25 mmol/L Normal 22-30 [facility] Comment on above: Performed By: #### L AB15 ####Nailer Hand: BRENDA JEAN ([phone])[facility] [place] (SB[facility]AB)[address] Creatinine [Mass/Vol] 2.68 mg/dL High 0.52-1.04 [facility] Comment on above: Performed By: #### L AB15 ####Nailer Hand: BRENDA JEAN ([phone])[facility] (SB[facility])[address] GLOMERULAR FILTRATION RATE ML/MIN/1.73 SQ M.PREDICTED 20.2 mL/min/1.73m*2 Low >60.0 [facility] Comment on above: Result Comment: Calc ulation based on the Chronic Kidney Disease Epidemiology Collaboration (CKD-EPI) equation refit without adjustment for race Performed By: #### L AB15 ####Nailer Hand: BRENDA JEAN ([phone])[facility] [place] ([facility])[address] Glucose [Mass/Vol] 76 mg/dL Normal 70-100 [facility] Comment on above: Performed By: #### L AB15 ####Nailer Hand: BRENDA JEAN ([phone])[facility] (SB[facility])[address] Potassium [Moles/Vol] 4.4 mmol/L Normal 3.5-5.1 [facility] Comment on above: Performed By: #### L AB15 ####Nailer Hand: BRENDA JEAN ([phone])[facility] [place] ([facility])[address] [place] [address] [place] Sodium [Moles/Vol] 129 mmol/L Low 135-145 [facility] Comment on above: Performed By: #### L AB15 ####Nailer Hand: BRENDA JEAN ([phone])[facility]BAL[facility] (SBHLAB)[address] [place] [address] [place] Urea nitrogen [Mass/Vol] 33 mg/dL High 7-17 [facility] Comment on above: Performed By: #### L AB15 ####Nailer Hand: BRENDA JEAN ([phone])[facility] [place] (SBHL[facility])[address] [place] [address] Basic metabolic 1998 panelon 07-04-2024 Anion gap [Moles/Vol] 5 mmol/L 3 - 13 mmol/L [facility] Calcium [Mass/Vol] 8.8 mg/dL 8.4 - 10. 4 mg/dL [facility] Chloride [Moles/Vol] 99 mmol/L 98 - 10 7 mmol/L [facility] CO2 [Moles/Vol] 25 mmol/L 22 - 30 mmol/L [facility] Creatinine [Mass/Vol] 2.68 mg/dL High 0.52 - 1.04 mg/dL [facility] GFR/1.73 sq M.predicted (S/P/Bld) [Vol rate/Area] 20.2 mL/min Low - PINF [facility] Comment on above: Calculation based on the Chronic Kidney Disease Epidemiology Collaboration (CKD-EPI) equation refit without adjustment for race Glucose [Mass/Vol] 76 mg/dL 70 - 100 mg/dL [facility] Interpretation and review of laboratory results Abnormal [facility] Potassium [Moles/Vol] 4.4 mmol/L 3.5 - 5.1 mmol/L [facility] Sodium [Moles/Vol] 129 mmol/L Low 135 - 145 mmol/L [facility] Urea nitrogen [Mass/Vol] 33 mg/dL High 7 - 17 mg/dL [facility] CBC W Auto Differential pane l (Bld)on 07-04-2024 Basophils (Bld) [#/Vol] 0 10*3/uL 0.0 - 0.2 10*3/uL [facility] Basophils/100 WBC (Bld) 0.5 % 0.0 - 2.0 % [facility] Eosinophils (Bld) [#/Vol] 0.3 10*3/uL 0.0 - 0.5 10*3/uL [facility] Eosinophils/100 WBC (Bld) 4.8 % 0.0 - 6.0 % [facility] Erythrocyte distribution width (RBC) [Ratio] 13.5 % 11.5 - 15.0 % [facility] Hematocrit (Bld) [Volume fraction] 26.4 % Low 35.0 - 47.0 % [facility] Hemoglobin (Bld) [Mass/Vol] 8.3 g/dL Low 11.7 - 16.0 g/dL [facility] Immature granulocytes (Bld) [#/Vol] 0 10*3/uL NINF - 0.1 10*3/uL [facility] Immature granulocytes/100 WBC (Bld) 0.7 % 0.0 - 2.0 % [facility] Interpretation and review of laboratory results Abnormal [facility] Lymphocytes (Bld) [#/Vol] 2.5 10*3/uL 1.0 - 4.3 10*3/uL [facility] Lymphocytes/100 WBC (Bld) 41.1 % 15.0 - 45.0 % [facility] MCH (RBC) [Entitic mass] 30.2 pg 26.0 - 34.0 pg [facility] MCHC (RBC) [Mass/Vol] 31.4 % 30.5 - 36.0 % [facility] MCV (RBC) [Entitic vol] 96 fL 77.0 - 99.0 fL [facility] Monocytes (Bld) [#/Vol] 0.8 10*3/uL 0.0 - 0.9 10*3/uL [facility] Monocytes/100 WBC (Bld) 12.5 % 5.0 - 13.0 % [facility] Neutrophils (Bld) [#/Vol] 2.4 10*3/uL 1.8 - 7.5 10*3/uL [facility] Neutrophils/100 WBC (Bld) 40.4 % 38.0 - 82.0 % [facility] Nucleated RBC/100 WBC (Bld) [Ratio] 0 % [facility] Platelet mean volume (Bld) [Entitic vol] 9.2 fL 9.0 - 12.7 fL [facility] Platelets (Bld) [#/Vol] 216 10*3/uL 140 - 440 10*3/uL [facility] RBC (Bld) [#/Vol] 2.75 10*6/uL Low 3.80 - 5.20 10*6/uL [facility] WBC (Bld) [#/Vol] 6 10*3/uL 3.6 - 10.7 10*3/uL [facility] CBC WITH AUTO DIFFERENTIALon 07-04-2024 Basophils (Bld) [#/Vol] 0.0 10*3/uL Normal 0.0-0.2 [facility] Comment on above: Performed By: #### L [id number] ####Nailer Hand: BRENDA JEAN ([phone])[facility] ([facility])[address] Basophils/100 WBC (Bld) 0.5 % Normal 0.0-2.0 [facility] Comment on above: Performed By: #### L [id number] ####Nailer Hand: BRENDA JEAN ([phone])[facility] ([facility])[address] Eosinophils (Bld) [#/Vol] 0.3 10*3/uL Normal 0.0-0.5 [facility] Comment on above: Performed By: #### L [id number] ####Nailer Hand: BRENDA JEAN ([phone])[facility] ([facility])[address] Eosinophils/100 WBC (Bld) 4.8 % Normal 0.0-6.0 [facility] Comment on above: Performed By: #### L [id number] ####Nailer Hand: BRENDA JEAN ([phone])[facility] ([facility])[address] Erythrocyte distribution width (RBC) [Ratio] 13.5 % Normal 11.5-15.0 [facility] Comment on above: Performed By: #### L [id number] ####Nailer Hand: BRENDA JEAN ([phone])[facility] ([facility])[address] Hematocrit (Bld) [Volume fraction] 26.4 % Low 35.0-47.0 [facility] Comment on above: Performed By: #### L [id number] ####Nailer Hand: BRENDA JEAN ([phone])[facility] ([facility])[address] Hemoglobin (Bld) [Mass/Vol] 8.3 g/dL Low 11.7-16.0 [facility] Comment on above: Performed By: #### L [id number] ####Nailer Hand: BRENDA JEAN ([phone])[facility] IMMATURE GRANS % 0.7 % Normal 0.0-2.0 [facility] Comment on above: Performed By: #### L [id number] ####Nailer Hand: BRENDA JEAN ([phone])[facility] ([facility] IMMATURE GRANS ABSOLUTE 0.0 10*3/uL Normal <0.1 [facility] Comment on above: Performed By: #### L [id number] ####Nailer Hand: BRENDA JEAN ([phone])[facility] ([facility])[address] Lymphocytes (Bld) [#/Vol] 2.5 10*3/uL Normal 1.0-4.3 [facility] Comment on above: Performed By: #### L [id number] ####Nailer Hand: BRENDA JEAN ([phone])[facility] ([facility])[address] [place] [address] Lymphocytes/100 WBC (Bld) 41.1 % Normal 15.0-45.0 [facility] Comment on above: Performed By: #### L [id number] ####Nailer Hand: BRENDA JEAN ([id number])[facility] ([facility])[address] MCH (RBC) [Entitic mass] 30.2 pg Normal 26.0-34.0 [facility] Comment on above: Performed By: #### L [id number] ####Nailer Hand: BRENDA JEAN ([phone])[facility] ([facility])[address] MCHC 31.4 % Normal 30.5-36.0 [facility] Comment on above: Performed By: #### L [id number] ####Nailer Hand: BRENDA CHASEDESEAN ([phone])[facility] ([facility])[address] MCV (RBC) [Entitic vol] 96.0 fL Normal 77.0-99.0 [facility] Comment on above: Performed By: #### L [id number] ####Nailer Hand: BRENDA JEAN ([phone])[facility] [place] ([facility])[address] Monocytes (Bld) [#/Vol] 0.8 10*3/uL Normal 0.0-0.9 [facility] Comment on above: Performed By: #### L [id number] ####Nailer Hand: BRENDA CHASEDESEAN ([phone])[facility] [place] ([facility])[address] Monocytes/100 WBC (Bld) 12.5 % Normal 5.0-13.0 [facility] Comment on above: Performed By: #### L [id number] ####Nailer Hand: BRENDA CHASEDESEAN ([phone])[facility] [place] ([facility])[address] NEUTROPHILS ABSOLUTE 2.4 10*3/uL Normal 1.8-7.5 [facility] Comment on above: Performed By: #### L [id number] ####Nailer Hand: BRENDA JEAN ([phone])[facility] [place] ([facility])[address] Neutrophils/100 WBC (Bld) 40.4 % Normal 38.0-82.0 [facility] Comment on above: Performed By: #### L [id number] ####Nailer Hand: BRENDA JEAN ([phone])[facility] [place] ([facility])[address] NRBC 0.0 /100 WBCs Normal 0.0-2.0 [facility] Comment on above: Performed By: #### L [id number] ####Nailer Hand: BRENDA MIRANDA ([phone])[facility]ITAL[facility] ([facility])[address] Platelet mean volume (Bld) [Entitic vol] 9.2 fL Normal 9.0-12.7 [facility] Comment on above: Performed By: #### L [id number] ####Nailer Hand: BRENDA MIRANDA ([phone])[facility]ITAL[facility] ([facility])[address] Platelets (Bld) [#/Vol] 216 10*3/uL Normal 140-440 [facility] Comment on above: Performed By: #### L [id number] ####Nailer Hand: BRENDA GREENMECCA ([phone])[facility]ITAL[facility] ([facility])[address] RBC (Bld) [#/Vol] 2.75 10*6/uL Low 3.80-5.20 [facility] Comment on above: Performed By: #### L [id number] ####Nailer Hand: BRENDA GREENMECCA ([phone])[facility]ITAL[facility] ([facility])[address] WBC (Bld) [#/Vol] 6.0 10*3/uL Normal 3.6-10.7 [facility] Comment on above: Performed By: #### L [id number] ####Nailer Hand: BRENDA MIRANDA ([phone])[facility]ITAL[facility] ([facility])[address] Laboratory - Chemistry and C hemistry - challengeOrdered By: Helena Hogue on 07-04-2024 Osmolality [Osmolality] 282 mosm/kg [facility] No Panel Informationon 07-04 Interpretation and review of laboratory results Abnormal [facility] OSMOLALITY, URINE 118 Low [facility] No Panel InformationOrdered By: Helena Hogue on 07-04-2024 Interpretation and review of laboratory results Normal [facility] Nursing Noteon 07-04-2024 Nursing Note Discharge instructio ns given to patient with understanding. I will also give them to her family, patients mother that will be picking her up at [address] Gutierrez did sign the AVS as requested by the facility. Normal [facility] Nursing Note I called Zeny as sisted living/[place] and gave report on the patient. Patient will be discharged at 3 pm. Patients family will be transporting her. Normal [facility] OSMOLALITY, SERUMon 07-04-20 24 OSMOLALITY, SERUM 282 mOsm/kg Normal 280-300 [facility] Comment on above: Performed By: #### L [id number] ####Nailer Hand: BRENDA JEAN ([phone])[facility] ([facility])[address] [place] [address] OSMOLALITY, URINEon 07-04-20 24 OSMOLALITY, URINE 118 mOsm/kg Low 300-1000 [facility] Comment on above: Performed By: #### L [id number] ####Nailer Hand: BRENDA JEAN ([phone])[facility] [place] [address] Progress Noteon 07-04-2024 Progress Note Normal [facility] Progress Note Normal [facility] Progress Note Normal [facility] Progress Note Normal [facility] Progress Note Normal [facility] 30on 07-03-2024 30 Normal [facility] [id number] 07-03-2024 [id number] Normal [facility] CBC W Auto Differential pane l (Bld)on 07-03-2024 Basophils (Bld) [#/Vol] 0 10*3/uL 0.0 - 0.2 10*3/uL [facility] Basophils/100 WBC (Bld) 0.5 % 0.0 - 2.0 % [facility] Eosinophils (Bld) [#/Vol] 0.2 10*3/uL 0.0 - 0.5 10*3/uL [facility] Eosinophils/100 WBC (Bld) 3.7 % 0.0 - 6.0 % [facility] Erythrocyte distribution width (RBC) [Ratio] 13.4 % 11.5 - 15.0 % [facility] Hematocrit (Bld) [Volume fraction] 27.4 % Low 35.0 - 47.0 % [facility] Hemoglobin (Bld) [Mass/Vol] 8.7 g/dL Low 11.7 - 16.0 g/dL [facility] Immature granulocytes (Bld) [#/Vol] 0 10*3/uL NINF - 0.1 10*3/uL [facility] Immature granulocytes/100 WBC (Bld) 0.3 % 0.0 - 2.0 % [facility] Interpretation and review of laboratory results Abnormal [facility] Lymphocytes (Bld) [#/Vol] 2.7 10*3/uL 1.0 - 4.3 10*3/uL [facility] Lymphocytes/100 WBC (Bld) 44.7 % 15.0 - 45.0 % [facility] MCH (RBC) [Entitic mass] 30.6 pg 26.0 - 34.0 pg [facility] MCHC (RBC) [Mass/Vol] 31.8 % 30.5 - 36.0 % [facility] MCV (RBC) [Entitic vol] 96.5 fL 77.0 - 99.0 fL [facility] Monocytes (Bld) [#/Vol] 0.7 10*3/uL 0.0 - 0.9 10*3/uL [facility] Monocytes/100 WBC (Bld) 12.1 % 5.0 - 13.0 % [facility] Neutrophils (Bld) [#/Vol] 2.3 10*3/uL 1.8 - 7.5 10*3/uL [facility] Neutrophils/100 WBC (Bld) 38.7 % 38.0 - 82.0 % [facility] Nucleated RBC/100 WBC (Bld) [Ratio] 0 % [facility] Platelet mean volume (Bld) [Entitic vol] 8.8 fL Low 9.0 - 12.7 fL [facility] Platelets (Bld) [#/Vol] 185 10*3/uL 140 - 440 10*3/uL [facility] RBC (Bld) [#/Vol] 2.84 10*6/uL Low 3.80 - 5.20 10*6/uL [facility] WBC (Bld) [#/Vol] 6 10*3/uL 3.6 - 10.7 10*3/uL [facility] CBC WITH AUTO DIFFERENTIALon 07-03-2024 Basophils (Bld) [#/Vol] 0.0 10*3/uL Normal 0.0-0.2 [facility] Comment on above: Performed By: #### L [id number] ####Nailer Hand: BRENDA JEAN ([phone])[facility] [place] (SBHLAB)[address] Basophils/100 WBC (Bld) 0.5 % Normal 0.0-2.0 [facility] Comment on above: Performed By: #### L [id number] ####Nailer Hand: BRENDA JEAN ([phone])[facility] ([facility])[address] [place] [address] Eosinophils (Bld) [#/Vol] 0.2 10*3/uL Normal 0.0-0.5 [facility] Comment on above: Performed By: #### L [id number] ####Nailer Hand: BRENDA JEAN ([phone])[facility] [place] [address] Eosinophils/100 WBC (Bld) 3.7 % Normal 0.0-6.0 [facility] Comment on above: Performed By: #### L [id number] ####Nailer Hand: BRENDA JEAN ([phone])[facility] ([facility])[address] [place] [address] Erythrocyte distribution width (RBC) [Ratio] 13.4 % Normal 11.5-15.0 [facility] Comment on above: Performed By: #### L [id number] ####Nailer Hand: BRENDA JEAN ([phone])[facility] ([facility])[address] [place] [address] Hematocrit (Bld) [Volume fraction] 27.4 % Low 35.0-47.0 [facility] Comment on above: Performed By: #### L [id number] ####Nailer Hand: BRENDA SILVACER ([phone])[facility] (SBHLAB)[address] Hemoglobin (Bld) [Mass/Vol] 8.7 g/dL Low 11.7-16.0 [facility] Comment on above: Performed By: #### L [id number] ####Nailer Hand: BRENDA JEAN ([phone])[facility] (SBAB)[address] IMMATURE GRANS % 0.3 % Normal 0.0-2.0 [facility] Comment on above: Performed By: #### L [id number] ####Nailer Hand: BRENDA CHASEDESEAN ([phone])[facility] IMMATURE GRANS ABSOLUTE 0.0 10*3/uL Normal <0.1 [facility] Comment on above: Performed By: #### L [id number] ####Nailer Hand: BRENDA JEAN ([phone])[facility] Lymphocytes (Bld) [#/Vol] 2.7 10*3/uL Normal 1.0-4.3 [facility] Comment on above: Performed By: #### L [id number] ####Nailer Hand: BRENDA JEAN ([phone])[facility] Lymphocytes/100 WBC (Bld) 44.7 % Normal 15.0-45.0 [facility] Comment on above: Performed By: #### L [id number] ####Nailer Hand: BRENDA JEAN ([phone])[facility] [place] [address] MCH (RBC) [Entitic mass] 30.6 pg Normal 26.0-34.0 [facility] Comment on above: Performed By: #### L [id number] ####Nailer Hand: BRENDA CHASEDESEAN ([phone])[facility] [place] (SBHL[facility])[address] MCHC 31.8 % Normal 30.5-36.0 [facility] Comment on above: Performed By: #### L [id number] ####Nailer Hand: BRENDA GREENMECCA ([phone])[facility] [place] (SB[facility])[address] MCV (RBC) [Entitic vol] 96.5 fL Normal 77.0-99.0 [facility] Comment on above: Performed By: #### L [id number] ####Nailer Hand: BRENDA CHASEDESEAN ([phone])[facility] [place] (SB[facility])[address] [place] [address] Monocytes (Bld) [#/Vol] 0.7 10*3/uL Normal 0.0-0.9 [facility] Comment on above: Performed By: #### L [id number] ####Nailer Hand: BRENDA CHASEDESEAN ([phone])[facility] [place] (SB[facility])[address] Monocytes/100 WBC (Bld) 12.1 % Normal 5.0-13.0 [facility] Comment on above: Performed By: #### L [id number] ####Nailer Hand: BRENDA JEAN ([phone])[facility] [place] ([facility])[address] NEUTROPHILS ABSOLUTE 2.3 10*3/uL Normal 1.8-7.5 [facility] Comment on above: Performed By: #### L [id number] ####Nailer Hand: BRENDA JEAN ([phone])[facility] [place] ([facility])[address] Neutrophils/100 WBC (Bld) 38.7 % Normal 38.0-82.0 [facility] Comment on above: Performed By: #### L [id number] ####Nailer Hand: BRENDA JEAN ([phone])[facility] [place] (SBHLAB)[address] NRBC 0.0 /100 WBCs Normal 0.0-2.0 [facility] Comment on above: Performed By: #### L [id number] ####Nailer Hand: BRENDA CHASEDESEAN ([phone])[facility] [place] ([facility])[address] Platelet mean volume (Bld) [Entitic vol] 8.8 fL Low 9.0-12.7 [facility] Comment on above: Performed By: #### L [id number] ####Nailer Hand: BRENDA SILVACER ([phone])[facility] [place] ([facility])[address] Platelets (Bld) [#/Vol] 185 10*3/uL Normal 140-440 [facility] Comment on above: Performed By: #### L [id number] ####Nailer Hand: BRENDA JEAN ([phone])[facility] [place] ([facility])[address] RBC (Bld) [#/Vol] 2.84 10*6/uL Low 3.80-5.20 [facility] Comment on above: Performed By: #### L [id number] ####Nailer Hand: BRENDA JEAN ([phone])[facility] [place] ([facility])[address] WBC (Bld) [#/Vol] 6.0 10*3/uL Normal 3.6-10.7 [facility] Comment on above: Performed By: #### L [id number] ####Nailer Hand: BRENDA JEAN ([phone])[facility] [place] ([facility])[address] Progress Noteon 07-03-2024 Progress Note Normal [facility] Progress Note Normal [facility] Progress Note Normal [facility] Progress Note Normal [facility] RENAL FUNCTION PANELon 07-03 Albumin [Mass/Vol] 2.8 g/dL Low 3.5-5.0 [facility] Comment on above: Performed By: #### L [id number] ####Nailer Hand: BRENDA JEAN ([phone])[facility] [place] ([facility])[address] Anion gap [Moles/Vol] 2 mmol/L Low 3-13 [facility] Comment on above: Performed By: #### L AB19 ####Nailer Hand: BRENDA JEAN ([phone])[facility] [place] ([facility])[address] Calcium [Mass/Vol] 8.4 mg/dL Normal 8.4-10.4 [facility] Comment on above: Performed By: #### L AB19 ####Nailer Hand: BRENDA JEAN ([phone])[facility] [place] ([facility])[address] Chloride [Moles/Vol] 103 mmol/L Normal 98-107 [facility] Comment on above: Performed By: #### L AB19 ####Nailer Hand: BRENDA JEAN ([phone])[facility] [place] ([facility])[address] CO2 [Moles/Vol] 26 mmol/L Normal 22-30 [facility] Comment on above: Performed By: #### L AB19 ####Nailer Hand: BRENDA JEAN ([phone])[facility] [place] ([facility])[address] Creatinine [Mass/Vol] 2.81 mg/dL High 0.52-1.04 [facility] Comment on above: Performed By: #### L AB19 ####Nailer Hand: BRENDA JEAN ([phone])[facility] [place] (SB[facility])[address] [place] [address] [place] GLOMERULAR FILTRATION RATE ML/MIN/1.73 SQ M.PREDICTED 19.1 mL/min/1.73m*2 Low >60.0 [facility] Comment on above: Result Comment: Calc ulation based on the Chronic Kidney Disease Epidemiology Collaboration (CKD-EPI) equation refit without adjustment for race Performed By: #### L AB19 ####Nailer Hand: BRENDA JEAN ([phone])[facility] [place] ([facility])[address] Glucose [Mass/Vol] 76 mg/dL Normal 70-100 [facility] Comment on above: Performed By: #### L AB19 ####Nailer Hand: BRENDA JEAN ([phone])[facility] ([facility])[address] Phosphate [Mass/Vol] 4.5 mg/dL Normal 2.5-4.5 [facility] Comment on above: Performed By: #### L AB19 ####Nailer Hand: BRENDA JEAN ([phone])[facility] ([facility])[address] Potassium [Moles/Vol] 4.6 mmol/L Normal 3.5-5.1 [facility] Comment on above: Performed By: #### L AB19 ####Nailer Hand: BRENDA JEAN ([phone])[facility] [place] ([facility])[address] Sodium [Moles/Vol] 132 mmol/L Low 135-145 [facility] Comment on above: Performed By: #### L AB19 ####Nailer Hand: BRENDA JEAN ([phone])[facility] [place] ([facility])[address] Urea nitrogen [Mass/Vol] 32 mg/dL High 7-17 [facility] Comment on above: Performed By: #### L AB19 ####Nailer Hand: RBENDA JEAN ([phone])[facility] [place] ([facility])[address] Renal function 2000 panelon 07-03-2024 Albumin [Mass/Vol] 2.8 g/dL Low 3.5 - 5.0 g/dL [facility] Anion gap [Moles/Vol] 2 mmol/L Low 3 - 13 mmol/L [facility] Calcium [Mass/Vol] 8.4 mg/dL 8.4 - 10. 4 mg/dL [facility] Chloride [Moles/Vol] 103 mmol/L 98 - 10 7 mmol/L [facility] CO2 [Moles/Vol] 26 mmol/L 22 - 30 mmol/L [facility] Creatinine [Mass/Vol] 2.81 mg/dL High 0.52 - 1.04 mg/dL [facility] GFR/1.73 sq M.predicted (S/P/Bld) [Vol rate/Area] 19.1 mL/min Low - PINF [facility] Comment on above: Calculation based on the Chronic Kidney Disease Epidemiology Collaboration (CKD-EPI) equation refit without adjustment for race Glucose [Mass/Vol] 76 mg/dL 70 - 100 mg/dL [facility] Interpretation and review of laboratory results Abnormal [facility] Phosphate [Mass/Vol] 4.5 mg/dL 2.5 - 4 .5 mg/dL [facility] Potassium [Moles/Vol] 4.6 mmol/L 3.5 - 5.1 mmol/L [facility] Sodium [Moles/Vol] 132 mmol/L Low 135 - 145 mmol/L [facility] Urea nitrogen [Mass/Vol] 32 mg/dL High 7 - 17 mg/dL [facility] [id number] 07-02-2024 [id number] Normal [facility] BASIC METABOLIC PANELon 06-15 Anion gap [Moles/Vol] 6 mmol/L Normal 3-13 [facility] Comment on above: Performed By: #### L AB15 ####Nailer Hand: BRENDA JEAN ([phone])[facility]ITAL[facility] ([facility] [place] [address] Calcium [Mass/Vol] 8.4 mg/dL Normal 8.4-10.4 [facility] Comment on above: Performed By: #### L AB15 ####Nailer Hand: BRENDA JEAN ([phone])[facility]ITAL[facility] [place] ([facility])[address] Chloride [Moles/Vol] 103 mmol/L Normal 98-107 [facility] Comment on above: Performed By: #### L AB15 ####Nailer Hand: BRENDA JEAN ([phone])[facility]ITALJ[facility]anny [facility] (SBHLAB)[address] CO2 [Moles/Vol] 23 mmol/L Normal 22-30 [facility] Comment on above: Performed By: #### L AB15 ####Nailer Hand: BRENDA JEAN ([phone])[facility] (SBHLAB)[address] Creatinine [Mass/Vol] 2.66 mg/dL High 0.52-1.04 [facility] Comment on above: Performed By: #### L AB15 ####Nailer Hand: BRENDA JEAN ([phone])[facility] (SBHLAB)[address] GLOMERULAR FILTRATION RATE ML/MIN/1.73 SQ M.PREDICTED 20.4 mL/min/1.73m*2 Low >60.0 [facility] Comment on above: Result Comment: Calc ulation based on the Chronic Kidney Disease Epidemiology Collaboration (CKD-EPI) equation refit without adjustment for race Performed By: #### L AB15 ####Nailer Hand: BRENDA JEAN ([phone])[facility]ITALJ[facility] (SBHLAB)[address] Glucose [Mass/Vol] 79 mg/dL Normal 70-100 [facility] Comment on above: Performed By: #### L AB15 ####Nailer Hand: BRENDA JEAN ([phone])[facility] (SBHLAB)[address] Potassium [Moles/Vol] 4.4 mmol/L Normal 3.5-5.1 [facility] Comment on above: Performed By: #### L AB15 ####Nailer Hand: BRENDA JEAN ([phone])[facility]ITALJ[facility]anny AARONN (SBHLAB)[address] Sodium [Moles/Vol] 131 mmol/L Low 135-145 [facility] Comment on above: Performed By: #### L AB15 ####Nailer Hand: BRENDA JEAN ([phone])[facility] (SBHLAB)[address] Urea nitrogen [Mass/Vol] 27 mg/dL High 7-17 [facility] Comment on above: Performed By: #### L AB15 ####Nailer Hand: BRENDA JEAN ([phone])[facility] (SBHLAB)[address] Basic metabolic 1998 panelon 07-02-2024 Anion gap [Moles/Vol] 6 mmol/L 3 - 13 mmol/L [facility] Calcium [Mass/Vol] 8.4 mg/dL 8.4 - 10. 4 mg/dL [facility] Chloride [Moles/Vol] 103 mmol/L 98 - 10 7 mmol/L [facility] CO2 [Moles/Vol] 23 mmol/L 22 - 30 mmol/L [facility] Creatinine [Mass/Vol] 2.66 mg/dL High 0.52 - 1.04 mg/dL [facility] GFR/1.73 sq M.predicted (S/P/Bld) [Vol rate/Area] 20.4 mL/min Low - PINF [facility] Comment on above: Calculation based on the Chronic Kidney Disease Epidemiology Collaboration (CKD-EPI) equation refit without adjustment for race Glucose [Mass/Vol] 79 mg/dL 70 - 100 mg/dL [facility] Interpretation and review of laboratory results Abnormal [facility] Potassium [Moles/Vol] 4.4 mmol/L 3.5 - 5.1 mmol/L [facility] Sodium [Moles/Vol] 131 mmol/L Low 135 - 145 mmol/L [facility] Urea nitrogen [Mass/Vol] 27 mg/dL High 7 - 17 mg/dL [facility] CBC W Auto Differential pane l (Bld)on 07-02-2024 Basophils (Bld) [#/Vol] 0 10*3/uL 0.0 - 0.2 10*3/uL [facility] Basophils/100 WBC (Bld) 0.7 % 0.0 - 2.0 % [facility] Eosinophils (Bld) [#/Vol] 0.2 10*3/uL 0.0 - 0.5 10*3/uL [facility] Eosinophils/100 WBC (Bld) 3.1 % 0.0 - 6.0 % [facility] Erythrocyte distribution width (RBC) [Ratio] 13.1 % 11.5 - 15.0 % [facility] Hematocrit (Bld) [Volume fraction] 27.2 % Low 35.0 - 47.0 % [facility] Hemoglobin (Bld) [Mass/Vol] 8.7 g/dL Low 11.7 - 16.0 g/dL [facility] Immature granulocytes (Bld) [#/Vol] 0 10*3/uL NINF - 0.1 10*3/uL [facility] Immature granulocytes/100 WBC (Bld) 0.5 % 0.0 - 2.0 % [facility] Interpretation and review of laboratory results Abnormal [facility] Lymphocytes (Bld) [#/Vol] 2.6 10*3/uL 1.0 - 4.3 10*3/uL [facility] Lymphocytes/100 WBC (Bld) 44.2 % 15.0 - 45.0 % [facility] MCH (RBC) [Entitic mass] 30.7 pg 26.0 - 34.0 pg [facility] MCHC (RBC) [Mass/Vol] 32 % 30.5 - 36.0 % [facility] MCV (RBC) [Entitic vol] 96.1 fL 77.0 - 99.0 fL [facility] Monocytes (Bld) [#/Vol] 0.6 10*3/uL 0.0 - 0.9 10*3/uL [facility] Monocytes/100 WBC (Bld) 10 % 5.0 - 13.0 % [facility] Neutrophils (Bld) [#/Vol] 2.4 10*3/uL 1.8 - 7.5 10*3/uL [facility] Neutrophils/100 WBC (Bld) 41.5 % 38.0 - 82.0 % [facility] Nucleated RBC/100 WBC (Bld) [Ratio] 0 % [facility] Platelet mean volume (Bld) [Entitic vol] 9.2 fL 9.0 - 12.7 fL [facility] Platelets (Bld) [#/Vol] 190 10*3/uL 140 - 440 10*3/uL [facility] RBC (Bld) [#/Vol] 2.83 10*6/uL Low 3.80 - 5.20 10*6/uL [facility] WBC (Bld) [#/Vol] 5.9 10*3/uL 3.6 - 10.7 10*3/uL [facility] CBC WITH AUTO DIFFERENTIALon 07-02-2024 Basophils (Bld) [#/Vol] 0.0 10*3/uL Normal 0.0-0.2 [facility] Comment on above: Performed By: #### L [id number] ####Nailer Hand: BRENDA JEAN ([phone])[facility] [place] [address] Basophils/100 WBC (Bld) 0.7 % Normal 0.0-2.0 [facility] Comment on above: Performed By: #### L [id number] ####Nailer Hand: BRENDA JEAN ([phone])[facility] [place] [address] [place] Eosinophils (Bld) [#/Vol] 0.2 10*3/uL Normal 0.0-0.5 [facility] Comment on above: Performed By: #### L [id number] ####Nailer Hand: BRENDA JEAN ([phone])[facility] Eosinophils/100 WBC (Bld) 3.1 % Normal 0.0-6.0 [facility] Comment on above: Performed By: #### L [id number] ####Nailer Hand: BRENDA JEAN ([phone])[facility] Erythrocyte distribution width (RBC) [Ratio] 13.1 % Normal 11.5-15.0 [facility] Comment on above: Performed By: #### L [id number] ####Nailer Hand: BRENDA JEAN ([phone])[facility] [place] ([facility])[address] [place] [address] Hematocrit (Bld) [Volume fraction] 27.2 % Low 35.0-47.0 [facility] Comment on above: Performed By: #### L [id number] ####Nailer Hand: BRENDA MIRANDA ([phone])[facility] [place] [address] Hemoglobin (Bld) [Mass/Vol] 8.7 g/dL Low 11.7-16.0 [facility] Comment on above: Performed By: #### L [id number] ####Nailer Hand: BRENDA JEAN ([phone])[facility] [place] [address] IMMATURE GRANS % 0.5 % Normal 0.0-2.0 [facility] Comment on above: Performed By: #### L [id number] ####Nailer Hand: BRENDA JEAN ([phone])[facility] [place] [address] IMMATURE GRANS ABSOLUTE 0.0 10*3/uL Normal <0.1 [facility] Comment on above: Performed By: #### L [id number] ####Nailer Hand: BRENDA CHASEDESEAN ([phone])[facility] [place] [address] Lymphocytes (Bld) [#/Vol] 2.6 10*3/uL Normal 1.0-4.3 [facility] Comment on above: Performed By: #### L [id number] ####Nailer Hand: BRENDA GREENMECCA ([phone])[facility] [place] [address] Lymphocytes/100 WBC (Bld) 44.2 % Normal 15.0-45.0 [facility] Comment on above: Performed By: #### L [id number] ####Nailer Hand: BRENDA GREENJaidenDESEAN ([phone])[facility]ITAL[facility]ohanny [place] ([facility])[address] MCH (RBC) [Entitic mass] 30.7 pg Normal 26.0-34.0 [facility] Comment on above: Performed By: #### L [id number] ####Nailer Hand: BRENDA MIRANDA ([phone])[facility] ([facility])[address] MCHC 32.0 % Normal 30.5-36.0 [facility] Comment on above: Performed By: #### L [id number] ####Nailer Hand: BRENDA MIRANDA ([phone])[facility]ITAL[facility] ([facility])[address] [place] [address] MCV (RBC) [Entitic vol] 96.1 fL Normal 77.0-99.0 [facility] Comment on above: Performed By: #### L [id number] ####Nailer Hand: BRENDA MIRANDA ([phone])[facility]ITAL[facility] ([facility])[address] Monocytes (Bld) [#/Vol] 0.6 10*3/uL Normal 0.0-0.9 [facility] Comment on above: Performed By: #### L [id number] ####Nailer Hand: BRENDA JEAN ([phone])[facility] [place] ([facility])[address] Monocytes/100 WBC (Bld) 10.0 % Normal 5.0-13.0 [facility] Comment on above: Performed By: #### L [id number] ####Nailer Hand: BRENDA CHASEDESEAN ([phone])[facility] ([facility])[address] NEUTROPHILS ABSOLUTE 2.4 10*3/uL Normal 1.8-7.5 [facility] Comment on above: Performed By: #### L [id number] ####Nailer Hand: BRENDA GREENJaidenDESEAN ([phone])[place] ([facility])[address] Neutrophils/100 WBC (Bld) 41.5 % Normal 38.0-82.0 [facility] Comment on above: Performed By: #### L [id number] ####Nailer Hand: BRENDA MIRANDA ([phone])[facility]ITALJ[facility]anny [facility] ([facility])[address] NRBC 0.0 /100 WBCs Normal 0.0-2.0 [facility] Comment on above: Performed By: #### L [id number] ####Nailer Hand: BRENDA MIRANDA ([phone])[facility]ITALJ[facility] ([facility])[address] Platelet mean volume (Bld) [Entitic vol] 9.2 fL Normal 9.0-12.7 [facility] Comment on above: Performed By: #### L [id number] ####Nailer Hand: BRENDA MIRANDA ([phone])[facility]ITALJ[facility]anny [facility] ([facility])[address] Platelets (Bld) [#/Vol] 190 10*3/uL Normal 140-440 [facility] Comment on above: Performed By: #### L [id number] ####Nailer Hand: BRENDA MIRANDA ([phone])[facility]ITALJ[facility]anny [facility] ([facility])[address] [place] [address] [place] RBC (Bld) [#/Vol] 2.83 10*6/uL Low 3.80-5.20 [facility] Comment on above: Performed By: #### L [id number] ####Nailer Hand: BRENDA GREENMECCA ([phone])[facility]ITALJ[facility] ([facility])[address] WBC (Bld) [#/Vol] 5.9 10*3/uL Normal 3.6-10.7 [facility] Comment on above: Performed By: #### L [id number] ####Nailer Hand: BRENDA JEAN ([phone])[facility] [place] ([facility])[address] Progress Noteon 07-02-2024 Progress Note Normal [facility] Progress Note Normal [facility] Progress Note Normal [facility] Progress Note Normal [facility] [id number] 07-01-2024 [id number] Normal [facility] BASIC METABOLIC PANELon 06-15 Anion gap [Moles/Vol] 5 mmol/L Normal 3-13 [facility] Comment on above: Performed By: #### L [id number] ####Nailer Hand: BRENDA JEAN ([phone])[facility] [place] ([facility])[address] Calcium [Mass/Vol] 8.3 mg/dL Low 8.4-10.4 [facility] Comment on above: Performed By: #### L [id number] ####Nailer Hand: BRENDA JEAN ([phone])[facility] [place] ([facility])[address] Chloride [Moles/Vol] 100 mmol/L Normal 98-107 [facility] Comment on above: Performed By: #### L [id number] ####Nailer Hand: BRENDA JEAN ([phone])[facility] [place] ([facility])[address] CO2 [Moles/Vol] 24 mmol/L Normal 22-30 [facility] Comment on above: Performed By: #### L AB15 ####Nailer Hand: BRENDA JEAN ([phone])[facility] [place] ([facility])[address] Creatinine [Mass/Vol] 2.64 mg/dL High 0.52-1.04 [facility] Comment on above: Performed By: #### L [id number] ####Nailer Hand: BRENDA JEAN ([phone])[facility] [place] ([facility])[address] GLOMERULAR FILTRATION RATE ML/MIN/1.73 SQ M.PREDICTED 20.5 mL/min/1.73m*2 Low >60.0 [facility] Comment on above: Result Comment: Calc ulation based on the Chronic Kidney Disease Epidemiology Collaboration (CKD-EPI) equation refit without adjustment for race Performed By: #### L AB15 ####Nailer Hand: BRENDA JEAN ([phone])[facility] [place] ([facility])[address] Glucose [Mass/Vol] 89 mg/dL Normal 70-100 [facility] Comment on above: Performed By: #### L [id number] ####Nailer Hand: BRENDA JEAN ([phone])[facility] [place] ([facility])[address] Potassium [Moles/Vol] 4.5 mmol/L Normal 3.5-5.1 [facility] Comment on above: Performed By: #### L [id number] ####Nailer Hand: BRENDA EJAN ([phone])[facility] [place] ([facility])[address] [place] [address] [place] Sodium [Moles/Vol] 129 mmol/L Low 135-145 [facility] Comment on above: Performed By: #### L [id number] ####Nailer Hand: BRENDA JEAN ([phone])[facility] [place] ([facility])[address] Urea nitrogen [Mass/Vol] 26 mg/dL High 7-17 [facility] Comment on above: Performed By: #### L [id number] ####Nailer Hand: BRENDA JEAN ([phone])[facility] [place] ([facility])[address] [place] [address] [place] Anion gap [Moles/Vol] 6 mmol/L Normal 3-13 [facility] Comment on above: Performed By: #### L [id number] ####Nailer Hand: BRENDA JEAN ([phone])[facility] [place] ([facility])[address] Calcium [Mass/Vol] 8.2 mg/dL Low 8.4-10.4 [facility] Comment on above: Performed By: #### L AB15 ####Nailer Hand: BRENDA JEAN ([phone])[place] ([facility])[address] Chloride [Moles/Vol] 103 mmol/L Normal 98-107 [facility] Comment on above: Performed By: #### L [id number] ####Nailer Hand: BRENDA JEAN ([phone])[facility] [place] ([facility])[address] CO2 [Moles/Vol] 23 mmol/L Normal 22-30 [facility] Comment on above: Performed By: #### L AB15 ####Nailer Hand: BRENDA JEAN ([phone])[facility]ITALJ[facility] [place] ([facility])[address] Creatinine [Mass/Vol] 2.84 mg/dL High 0.52-1.04 [facility] Comment on above: Performed By: #### L [id number] ####Nailer Hand: BRENDA JEAN ([phone])[facility]ITALJ[facility]anny [facility]ITALH[facility] ([facility])[address] GLOMERULAR FILTRATION RATE ML/MIN/1.73 SQ M.PREDICTED 18.8 mL/min/1.73m*2 Low >60.0 [facility] Comment on above: Result Comment: Calc ulation based on the Chronic Kidney Disease Epidemiology Collaboration (CKD-EPI) equation refit without adjustment for race Performed By: #### L [id number] ####Nailer Hand: BRENDA JEAN ([phone])[facility]ITALJ[facility]anny [place] ([facility])[address] Glucose [Mass/Vol] 76 mg/dL Normal 70-100 [facility] Comment on above: Performed By: #### L AB15 ####Nailer Hand: BRENDA JEAN ([phone])[facility]ITAL[facility] [place] ([facility])[address] Potassium [Moles/Vol] 4.7 mmol/L Normal 3.5-5.1 [facility] Comment on above: Performed By: #### L [id number] ####Nailer Hand: BRENDA JEAN ([phone])[facility]ITALJ[facility]anny [place] ([facility])[address] Sodium [Moles/Vol] 132 mmol/L Low 135-145 [facility] Comment on above: Performed By: #### L AB15 ####Nailer Hand: BRENDA JEAN ([phone])[facility]ITAL[facility] [place] ([facility])[address] Urea nitrogen [Mass/Vol] 24 mg/dL High 7-17 [facility] Comment on above: Performed By: #### L AB15 ####Nailer Hand: BRENDA JEAN ([phone])[facility] ([facility])[address] Basic metabolic 1998 panelon 07-01-2024 Anion gap [Moles/Vol] 5 mmol/L 3 - 13 mmol/L [facility] Calcium [Mass/Vol] 8.3 mg/dL Low 8.4 - 10. 4 mg/dL [facility] Chloride [Moles/Vol] 100 mmol/L 98 - 10 7 mmol/L [facility] CO2 [Moles/Vol] 24 mmol/L 22 - 30 mmol/L [facility] Creatinine [Mass/Vol] 2.64 mg/dL High 0.52 - 1.04 mg/dL [facility] GFR/1.73 sq M.predicted (S/P/Bld) [Vol rate/Area] 20.5 mL/min Low - PINF [facility] Comment on above: Calculation based on the Chronic Kidney Disease Epidemiology Collaboration (CKD-EPI) equation refit without adjustment for race Glucose [Mass/Vol] 89 mg/dL 70 - 100 mg/dL [facility] Interpretation and review of laboratory results Abnormal [facility] Potassium [Moles/Vol] 4.5 mmol/L 3.5 - 5.1 mmol/L [facility] Sodium [Moles/Vol] 129 mmol/L Low 135 - 145 mmol/L [facility] Urea nitrogen [Mass/Vol] 26 mg/dL High 7 - 17 mg/dL [facility] Anion gap [Moles/Vol] 6 mmol/L 3 - 13 mmol/L [facility] Calcium [Mass/Vol] 8.2 mg/dL Low 8.4 - 10. 4 mg/dL [facility] Chloride [Moles/Vol] 103 mmol/L 98 - 10 7 mmol/L [facility] CO2 [Moles/Vol] 23 mmol/L 22 - 30 mmol/L [facility] Creatinine [Mass/Vol] 2.84 mg/dL High 0.52 - 1.04 mg/dL [facility] GFR/1.73 sq M.predicted (S/P/Bld) [Vol rate/Area] 18.8 mL/min Low - PINF [facility] Comment on above: Calculation based on the Chronic Kidney Disease Epidemiology Collaboration (CKD-EPI) equation refit without adjustment for race Glucose [Mass/Vol] 76 mg/dL 70 - 100 mg/dL [facility] Interpretation and review of laboratory results Abnormal [facility] Potassium [Moles/Vol] 4.7 mmol/L 3.5 - 5.1 mmol/L [facility] Sodium [Moles/Vol] 132 mmol/L Low 135 - 145 mmol/L [facility] Urea nitrogen [Mass/Vol] 24 mg/dL High 7 - 17 mg/dL [facility] CBC W Auto Differential pane l (Bld)on 07-01-2024 Basophils (Bld) [#/Vol] 0 10*3/uL 0.0 - 0.2 10*3/uL [facility] Basophils/100 WBC (Bld) 0.6 % 0.0 - 2.0 % [facility] Eosinophils (Bld) [#/Vol] 0.2 10*3/uL 0.0 - 0.5 10*3/uL [facility] Eosinophils/100 WBC (Bld) 3.2 % 0.0 - 6.0 % [facility] Erythrocyte distribution width (RBC) [Ratio] 13.2 % 11.5 - 15.0 % [facility] Hematocrit (Bld) [Volume fraction] 26.3 % Low 35.0 - 47.0 % [facility] Hemoglobin (Bld) [Mass/Vol] 8.4 g/dL Low 11.7 - 16.0 g/dL [facility] Immature granulocytes (Bld) [#/Vol] 0 10*3/uL NINF - 0.1 10*3/uL [facility] Immature granulocytes/100 WBC (Bld) 0.3 % 0.0 - 2.0 % [facility] Interpretation and review of laboratory results Abnormal [facility] Lymphocytes (Bld) [#/Vol] 3.1 10*3/uL 1.0 - 4.3 10*3/uL [facility] Lymphocytes/100 WBC (Bld) 47.3 % High 15.0 - 45.0 % [facility] MCH (RBC) [Entitic mass] 31.2 pg 26.0 - 34.0 pg [facility] MCHC (RBC) [Mass/Vol] 31.9 % 30.5 - 36.0 % [facility] MCV (RBC) [Entitic vol] 97.8 fL 77.0 - 99.0 fL [facility] Monocytes (Bld) [#/Vol] 0.7 10*3/uL 0.0 - 0.9 10*3/uL [facility] Monocytes/100 WBC (Bld) 10 % 5.0 - 13.0 % [facility] Neutrophils (Bld) [#/Vol] 2.5 10*3/uL 1.8 - 7.5 10*3/uL [facility] Neutrophils/100 WBC (Bld) 38.6 % 38.0 - 82.0 % [facility] Nucleated RBC/100 WBC (Bld) [Ratio] 0 % [facility] Platelet mean volume (Bld) [Entitic vol] 9.2 fL 9.0 - 12.7 fL [facility] Platelets (Bld) [#/Vol] 178 10*3/uL 140 - 440 10*3/uL [facility] RBC (Bld) [#/Vol] 2.69 10*6/uL Low 3.80 - 5.20 10*6/uL [facility] WBC (Bld) [#/Vol] 6.6 10*3/uL 3.6 - 10.7 10*3/uL [facility] CBC WITH AUTO DIFFERENTIALon 07-01-2024 Basophils (Bld) [#/Vol] 0.0 10*3/uL Normal 0.0-0.2 [facility] Comment on above: Performed By: #### L [id number] ####Nailer Hand: BRENDA JEAN ([phone])[facility] [place] ([facility])[address] [place] [address] Basophils/100 WBC (Bld) 0.6 % Normal 0.0-2.0 [facility] Comment on above: Performed By: #### L [id number] ####Nailer Hand: BRENDA CHASEDESEAN ([phone])[facility] [place] ([facility])[address] Eosinophils (Bld) [#/Vol] 0.2 10*3/uL Normal 0.0-0.5 [facility] Comment on above: Performed By: #### L [id number] ####Nailer Hand: BRENDA GREENMECCA ([phone])[facility] [place] ([facility])[address] [place] [address] Eosinophils/100 WBC (Bld) 3.2 % Normal 0.0-6.0 [facility] Comment on above: Performed By: #### L [id number] ####Nailer Hand: BRENDA CHASEDESEAN ([phone])[facility] [place] [facility] [place] [address] Erythrocyte distribution width (RBC) [Ratio] 13.2 % Normal 11.5-15.0 [facility] Comment on above: Performed By: #### L [id number] ####Nailer Hand: BRENDA JEAN ([phone])[facility] [place] ([facility])[address] [place] [address] Hematocrit (Bld) [Volume fraction] 26.3 % Low 35.0-47.0 [facility] Comment on above: Performed By: #### L [id number] ####Nailer Hand: BRENDA JEAN ([phone])[facility] [place] ([facility])[address] [place] [address] Hemoglobin (Bld) [Mass/Vol] 8.4 g/dL Low 11.7-16.0 [facility] Comment on above: Performed By: #### L [id number] ####Nailer Hand: BRENDA JEAN ([phone])[facility] ([facility])[address] [place] [address] IMMATURE GRANS % 0.3 % Normal 0.0-2.0 [facility] Comment on above: Performed By: #### L [id number] ####Nailer Hand: BRENDA JEAN ([phone])[facility] ([facility])[address] IMMATURE GRANS ABSOLUTE 0.0 10*3/uL Normal <0.1 [facility] Comment on above: Performed By: #### L [id number] ####Nailer Hand: BRENDA JEAN ([phone])[facility] [place] [address] Lymphocytes (Bld) [#/Vol] 3.1 10*3/uL Normal 1.0-4.3 [facility] Comment on above: Performed By: #### L [id number] ####Nailer Hand: BRENDA JEAN ([phone])[facility] [place] [address] Lymphocytes/100 WBC (Bld) 47.3 % High 15.0-45.0 [facility] Comment on above: Performed By: #### L [id number] ####Nailer Hand: BRENDA JEAN ([phone])[facility] ([facility])[address] [place] [address] MCH (RBC) [Entitic mass] 31.2 pg Normal 26.0-34.0 [facility] Comment on above: Performed By: #### L [id number] ####Nailer Hand: BRENDA JEAN ([phone])[facility] ([facility])[address] [place] [address] MCHC 31.9 % Normal 30.5-36.0 [facility] Comment on above: Performed By: #### L [id number] ####Nailer Hand: BRENDA CHASEDESEAN ([phone])[facility] [place] ([facility])[address] MCV (RBC) [Entitic vol] 97.8 fL Normal 77.0-99.0 [facility] Comment on above: Performed By: #### L [id number] ####Nailer Hand: BRENDA CHASEDESEAN ([id number])[facility] [place] ([facility])[address] Monocytes (Bld) [#/Vol] 0.7 10*3/uL Normal 0.0-0.9 [facility] Comment on above: Performed By: #### L [id number] ####Nailer Hand: BRENDA CHASEDEESAN ([id number])[facility] [place] ([facility])[address] Monocytes/100 WBC (Bld) 10.0 % Normal 5.0-13.0 [facility] Comment on above: Performed By: #### L [id number] ####Nailer Hand: BRENDA JEAN ([phone])[facility] [place] ([facility])[address] NEUTROPHILS ABSOLUTE 2.5 10*3/uL Normal 1.8-7.5 [facility] Comment on above: Performed By: #### L [id number] ####Nailer Hand: BRENDA JEAN ([id number])[facility] [place] ([facility])[address] Neutrophils/100 WBC (Bld) 38.6 % Normal 38.0-82.0 [facility] Comment on above: Performed By: #### L [id number] ####Nailer Hand: BRENDA JEAN ([phone])[facility] [place] ([facility])[address] NRBC 0.0 /100 WBCs Normal 0.0-2.0 [facility] Comment on above: Performed By: #### L [id number] ####Nailer Hand: BRENDA JEAN ([id number])[facility] [place] ([facility])[address] Platelet mean volume (Bld) [Entitic vol] 9.2 fL Normal 9.0-12.7 [facility] Comment on above: Performed By: #### L [id number] ####Nailer Hand: BRENDA JEAN ([id number])[facility] [place] ([facility])[address] Platelets (Bld) [#/Vol] 178 10*3/uL Normal 140-440 [facility] Comment on above: Performed By: #### L [id number] ####Nailer Hand: BRENDA JEAN ([phone])[facility] [place] ([facility])[address] [place] [address] RBC (Bld) [#/Vol] 2.69 10*6/uL Low 3.80-5.20 [facility] [facility] Comment on above: Performed By: #### L [id number] ####Nailer Hand: BRENDA JEAN ([phone])[facility] HOSPITALJohanny BARBYOKO (SBHLAB)[address] [place] [address] WBC (Bld) [#/Vol] 6.6 10*3/uL Normal 3.6-10.7 [facility] Comment on above: Performed By: #### L [id number] ####Nailer Hand: BRENDA JEAN ([phone])[facility] HOSPITALJohanny BARBJEANN (SBHLAB)[address] [place] [address] Consulton 07-01-2024 Consult Normal [facility] Progress Noteon 07-01-2024 Progress Note Normal [facility] BASIC METABOLIC PANELon 06-15 Anion gap [Moles/Vol] 4 mmol/L Normal 3-13 [facility] Comment on above: Performed By: #### L AB129, LAB15 ####Nailer Hand: BRENDA JEAN ([phone])[facility] HOSPITALJohanny WELL[place] (SBHLAB)[address] Calcium [Mass/Vol] 7.7 mg/dL Low 8.4-10.4 [facility] Comment on above: Performed By: #### L AB129, LAB15 ####Nailer Hand: BRENDA JEAN ([phone])[facility] (SBHLAB)[address] Chloride [Moles/Vol] 101 mmol/L Normal 98-107 [facility] Comment on above: Performed By: #### L AB129, LAB15 ####Nailer Hand: BRENDA JEAN ([phone])[facility] (SBHLAB)[address] CO2 [Moles/Vol] 22 mmol/L Normal 22-30 [facility] Comment on above: Performed By: #### L AB129, LAB15 ####Nailer Hand: BRENDA JEAN ([phone])[facility] (HLAB)[address] Creatinine [Mass/Vol] 2.81 mg/dL High 0.52-1.04 [facility] Comment on above: Performed By: #### L AB129, LAB15 ####Nailer Hand: BRENDA JEAN ([phone])[facility] (SBHLAB)[address] [place] [address] [place] GLOMERULAR FILTRATION RATE ML/MIN/1.73 SQ M.PREDICTED 19.1 mL/min/1.73m*2 Low >60.0 [facility] Comment on above: Result Comment: Calc ulation based on the Chronic Kidney Disease Epidemiology Collaboration (CKD-EPI) equation refit without adjustment for race Performed By: #### L AB129, LAB15 ####Nailer Hand: BRENDA JEAN ([phone])[facility] (SBHLAB)[address] [place] [address] [place] Glucose [Mass/Vol] 82 mg/dL Normal 70-100 [facility] Comment on above: Performed By: #### L AB129, LAB15 ####Nailer Hand: BRENDA JEAN ([phone])[facility] (SBHLAB)[address] Potassium [Moles/Vol] 4.3 mmol/L Normal 3.5-5.1 [facility] Comment on above: Performed By: #### L AB129, LAB15 ####Nailer Hand: BRENDA JEAN ([phone])[facility] (SBHLAB)[address] Sodium [Moles/Vol] 127 mmol/L Low 135-145 [facility] Comment on above: Performed By: #### L AB129, LAB15 ####Nailer Hand: BRENDA SILVACER ([phone])[facility] (SBHLAB)[address] Urea nitrogen [Mass/Vol] 21 mg/dL High 7-17 [facility] Comment on above: Performed By: #### L AB129, LAB15 ####Nailer Hand: BRENDA JEAN ([phone])[facility] (SBHLAB)[address] Bacteria identified Cx Nom ( U)Ordered By: Rahul Manning on 06-30-2024 Interpretation and review of laboratory results Abnormal [facility] Basic metabolic 1998 panelon 06-30-2024 Anion gap [Moles/Vol] 4 mmol/L 3 - 13 mmol/L [facility] Calcium [Mass/Vol] 7.7 mg/dL Low 8.4 - 10. 4 mg/dL [facility] Chloride [Moles/Vol] 101 mmol/L 98 - 10 7 mmol/L [facility] CO2 [Moles/Vol] 22 mmol/L 22 - 30 mmol/L [facility] Creatinine [Mass/Vol] 2.81 mg/dL High 0.52 - 1.04 mg/dL [facility] GFR/1.73 sq M.predicted (S/P/Bld) [Vol rate/Area] 19.1 mL/min Low - PINF [facility] Comment on above: Calculation based on the Chronic Kidney Disease Epidemiology Collaboration (CKD-EPI) equation refit without adjustment for race Glucose [Mass/Vol] 82 mg/dL 70 - 100 mg/dL [facility] Interpretation and review of laboratory results Abnormal [facility] Potassium [Moles/Vol] 4.3 mmol/L 3.5 - 5.1 mmol/L [facility] Sodium [Moles/Vol] 127 mmol/L Low 135 - 145 mmol/L [facility] Urea nitrogen [Mass/Vol] 21 mg/dL High 7 - 17 mg/dL [facility] CBC W Auto Differential pane l (Bld)on 06-30-2024 Basophils (Bld) [#/Vol] 0 10*3/uL 0.0 - 0.2 10*3/uL [facility] Basophils/100 WBC (Bld) 0.5 % 0.0 - 2.0 % [facility] Eosinophils (Bld) [#/Vol] 0.2 10*3/uL 0.0 - 0.5 10*3/uL [facility] Eosinophils/100 WBC (Bld) 3.1 % 0.0 - 6.0 % [facility] Erythrocyte distribution width (RBC) [Ratio] 12.9 % 11.5 - 15.0 % [facility] Hematocrit (Bld) [Volume fraction] 24.2 % Low 35.0 - 47.0 % [facility] Hemoglobin (Bld) [Mass/Vol] 7.4 g/dL Low 11.7 - 16.0 g/dL [facility] Immature granulocytes (Bld) [#/Vol] 0 10*3/uL NINF - 0.1 10*3/uL [facility] Immature granulocytes/100 WBC (Bld) 0.5 % 0.0 - 2.0 % [facility] Interpretation and review of laboratory results Abnormal [facility] Lymphocytes (Bld) [#/Vol] 2.1 10*3/uL 1.0 - 4.3 10*3/uL [facility] Lymphocytes/100 WBC (Bld) 31.5 % 15.0 - 45.0 % [facility] MCH (RBC) [Entitic mass] 30.3 pg 26.0 - 34.0 pg [facility] MCHC (RBC) [Mass/Vol] 30.6 % 30.5 - 36.0 % [facility] MCV (RBC) [Entitic vol] 99.2 fL High 77.0 - 99.0 fL [facility] Monocytes (Bld) [#/Vol] 0.8 10*3/uL 0.0 - 0.9 10*3/uL [facility] Monocytes/100 WBC (Bld) 11.5 % 5.0 - 13.0 % [facility] Neutrophils (Bld) [#/Vol] 3.5 10*3/uL 1.8 - 7.5 10*3/uL [facility] Neutrophils/100 WBC (Bld) 52.9 % 38.0 - 82.0 % [facility] Nucleated RBC/100 WBC (Bld) [Ratio] 0 % [facility] Platelet mean volume (Bld) [Entitic vol] 9.5 fL 9.0 - 12.7 fL [facility] Platelets (Bld) [#/Vol] 147 10*3/uL 140 - 440 10*3/uL [facility] RBC (Bld) [#/Vol] 2.44 10*6/uL Low 3.80 - 5.20 10*6/uL [facility] WBC (Bld) [#/Vol] 6.6 10*3/uL 3.6 - 10.7 10*3/uL [facility] CBC WITH AUTO DIFFERENTIALon 06-30-2024 Basophils (Bld) [#/Vol] 0.0 10*3/uL Normal 0.0-0.2 [facility] Comment on above: Performed By: #### L [id number] ####Nailer Hand: BRENDA JEAN ([phone])[facility] ([facility])[address] [place] [address] Basophils/100 WBC (Bld) 0.5 % Normal 0.0-2.0 [facility] Comment on above: Performed By: #### L [id number] ####Nailer Hand: BRENDA JEAN ([phone])[facility] ([facility])[address] [place] [address] Eosinophils (Bld) [#/Vol] 0.2 10*3/uL Normal 0.0-0.5 [facility] Comment on above: Performed By: #### L [id number] ####Nailer Hand: BRENDA [phone])[facility] (SBHLAB)[address] Eosinophils/100 WBC (Bld) 3.1 % Normal 0.0-6.0 [facility] Comment on above: Performed By: #### L [id number] ####Nailer Hand: BRENDA JEAN ([id number])[facility]A [place] (SBHLAB)[address] Erythrocyte distribution width (RBC) [Ratio] 12.9 % Normal 11.5-15.0 [facility] Comment on above: Performed By: #### L [id number] ####Nailer Hand: BRENDA JEAN ([phone])[facility]ITALA [place] [facility] Hematocrit (Bld) [Volume fraction] 24.2 % Low 35.0-47.0 [facility] Comment on above: Performed By: #### L [id number] ####Nailer Hand: BRENDA CHASEDESEAN ([phone])[facility]ITALA [facility]BAL[facility] ([facility])[address] [place] [address] Hemoglobin (Bld) [Mass/Vol] 7.4 g/dL Low 11.7-16.0 [facility] Comment on above: Performed By: #### L [id number] ####Nailer Hand: BRENDA JEAN ([phone])[facility]A [place] (SBAB)[address] IMMATURE GRANS % 0.5 % Normal 0.0-2.0 [facility] Comment on above: Performed By: #### L [id number] ####Nailer Hand: BRENDA JEAN ([phone])[facility]A [place] (SBAB)[address] IMMATURE GRANS ABSOLUTE 0.0 10*3/uL Normal <0.1 [facility] Comment on above: Performed By: #### L [id number] ####Nailer Hand: BRENDA JEAN ([phone])[facility] (SBHLAB)[address] Lymphocytes (Bld) [#/Vol] 2.1 10*3/uL Normal 1.0-4.3 [facility] Comment on above: Performed By: #### L [id number] ####Nailer Hand: BRENDA JEAN ([phone])[facility]A [place] (SBHLAB)[address] Lymphocytes/100 WBC (Bld) 31.5 % Normal 15.0-45.0 [facility] Comment on above: Performed By: #### L [id number] ####Nailer Hand: BRENDA JEAN ([phone])[facility]A [place] (SBHLAB)[address] MCH (RBC) [Entitic mass] 30.3 pg Normal 26.0-34.0 [facility] Comment on above: Performed By: #### L [id number] ####Nailer Hand: BRENDA JEAN ([phone])[facility] [place] (SBHLAB)[address] MCHC 30.6 % Normal 30.5-36.0 [facility] Comment on above: Performed By: #### L [id number] ####Nailer Hand: BRENDA JEAN ([phone])[facility] [place] (SBHLAB)[address] MCV (RBC) [Entitic vol] 99.2 fL High 77.0-99.0 [facility] Comment on above: Performed By: #### L [id number] ####Nailer Hand: BRENDA JEAN ([phone])[facility]A [place] (SBHLAB)[address] Monocytes (Bld) [#/Vol] 0.8 10*3/uL Normal 0.0-0.9 [facility] Comment on above: Performed By: #### L [id number] ####Nailer Hand: BRENDA JEAN ([phone])[facility] (SBHLAB)[address] [place] [address] [place] Monocytes/100 WBC (Bld) 11.5 % Normal 5.0-13.0 [facility] Comment on above: Performed By: #### L [id number] ####Nailer Hand: BRENDA JEAN ([phone])[facility] (SBHLAB)[address] NEUTROPHILS ABSOLUTE 3.5 10*3/uL Normal 1.8-7.5 [facility] Comment on above: Performed By: #### L [id number] ####Nailer Hand: BRENDA JEAN ([phone])[facility]A [place] (SBHLAB)[address] Neutrophils/100 WBC (Bld) 52.9 % Normal 38.0-82.0 [facility] Comment on above: Performed By: #### L [id number] ####Nailer Hand: BRENDA JEAN ([phone])[facility] [place] (SBHLAB)[address] NRBC 0.0 /100 WBCs Normal 0.0-2.0 [facility] Comment on above: Performed By: #### L [id number] ####Nailer Hand: BRENDA JEAN ([phone])[facility] [place] (SBHLAB)[address] Platelet mean volume (Bld) [Entitic vol] 9.5 fL Normal 9.0-12.7 [facility] Comment on above: Performed By: #### L [id number] ####Nailer Hand: BRENDA JEAN ([phone])[facility]A [place] (SBHLAB)[address] [place] [address] [place] Platelets (Bld) [#/Vol] 147 10*3/uL Normal 140-440 [facility] Comment on above: Performed By: #### L [id number] ####Nailer Hand: BRENDA JEAN ([phone])[facility] [place] (SBHLAB)[address] RBC (Bld) [#/Vol] 2.44 10*6/uL Low 3.80-5.20 [facility] Comment on above: Performed By: #### L [id number] ####Nailer Hand: BRENDA JEAN ([phone])[facility] (SBHLAB)[address] [place] [address] WBC (Bld) [#/Vol] 6.6 10*3/uL Normal 3.6-10.7 [facility] Comment on above: Performed By: #### L [id number] ####Nailer Hand: BRENDA JEAN ([phone])[facility])[address] [place] [address] Laboratory - Chemistry and C hemistry - challengeon 06-30-2024 Osmolality [Osmolality] 283 mosm/kg [facility] Sodium (24H U) [Mass/Vol] 13 mmol/L Low 30 - 90 mmol/L [facility] TSH Qn 0.261 m[IU]/L Low [facility] Laboratory - Microbiology an d Antimicrobial susceptibilityOrdered By: Rahul Manning on 06-30-2024 Bacteria identified Cx Nom (U) >100,000 CFU/mL Escherichia coli Abnormal [facility] No Panel InformationOrdered By: Kelsea Barger on 06-30-2024 Interpretation and review of laboratory results Abnormal [facility] OSMOLALITY, URINE 116 Low [facility] No Panel Informationon 06-30 Interpretation and review of laboratory results Normal [facility] Interpretation and review of laboratory results Abnormal [facility] OSMOLALITY, SERUMon 06-30-20 24 OSMOLALITY, SERUM 283 mOsm/kg Normal 280-300 [facility] Comment on above: Performed By: #### L [id number] ####Nailer Hand: BRENDA JEAN ([phone])[facility])[address] [place] [address] OSMOLALITY, URINEon 06-30-20 24 OSMOLALITY, URINE 116 mOsm/kg Low 300-1000 [facility] Comment on above: Performed By: #### L [id number], [id number] ####Nailer Hand: BRENDA JEAN ([phone])[facility]ITALJohanny [facility]ITALHolly (SBHLAB)[address] Progress Noteon 06-30-2024 Progress Note Normal [facility] Progress Note Normal [facility] Progress Note Normal [facility] Progress Note Nutrition rescreen complete. Pt assigned a level one for nutrition care. Normal [facility] SODIUM, URINE, RANDOMon 06-15 Sodium (U) [Moles/Vol] 13 mmol/L Low 30-90 [facility] Comment on above: Performed By: #### L AB420, [id number] ####Nailer Hand: BRENDA JEAN ([phone])[facility] (SBHLAB)[address] THYROID STIMULATING HORMONEo n 06-30-2024 THYROID STIMULATING HORMONE 0.261 uIU/mL Low 0.465-4.68 0 [facility] Comment on above: Performed By: #### L AB129, LAB15 ####Nailer Hand: BRENDA JEAN ([phone])[facility] (SBHLAB)[address] TSH Qnon 06-30-2024 Interpretation and review of laboratory results Abnormal [facility] BASIC METABOLIC PANELon 06-15 Anion gap [Moles/Vol] 8 mmol/L Normal 3-13 [facility] Comment on above: Performed By: #### L AB15 ####Nailer Hand: BRENDA JEAN ([phone])[facility]ITALJ[facility]anny [place] (SBHLAB)[address] Calcium [Mass/Vol] 8.2 mg/dL Low 8.4-10.4 [facility] Comment on above: Performed By: #### L AB15 ####Nailer Hand: BRENDA JEAN ([phone])[facility]ITAL[facility] (SBHLAB)[address] Chloride [Moles/Vol] 98 mmol/L Normal 98-107 [facility] Comment on above: Performed By: #### L AB15 ####Nailer Hand: BRENDA JEAN ([phone])[facility]ITALJ[facility]anny [place] (SBHLAB)[address] CO2 [Moles/Vol] 24 mmol/L Normal 22-30 [facility] Comment on above: Performed By: #### L AB15 ####Nailer Hand: BRENDA JEAN ([phone])[facility]ITALJohanny BARBJEANN (SBHLAB)[address] Creatinine [Mass/Vol] 3.02 mg/dL High 0.52-1.04 [facility] Comment on above: Performed By: #### L AB15 ####Nailer Hand: BRENDA JEAN ([phone])[facility]A [place] (SBHLAB)[address] GLOMERULAR FILTRATION RATE ML/MIN/1.73 SQ M.PREDICTED 17.5 mL/min/1.73m*2 Low >60.0 [facility] Comment on above: Result Comment: Calc ulation based on the Chronic Kidney Disease Epidemiology Collaboration (CKD-EPI) equation refit without adjustment for race Performed By: #### L AB15 ####Nailer Hand: BRENDA JEAN ([phone])[facility]ITALJohanny [place] (SBHLAB)[address] Glucose [Mass/Vol] 120 mg/dL High 70-100 [facility] Comment on above: Performed By: #### L AB15 ####Nailer Hand: BRENDA JEAN ([phone])[facility]A [place]ANN (SBHLAB)[address] [place] [address] [place] Potassium [Moles/Vol] 3.7 mmol/L Normal 3.5-5.1 [facility] Comment on above: Performed By: #### L AB15 ####Nailer Hand: BRENDA JEAN ([phone])[facility]ITALJohanny BARBALTA [facility] HOSPITALHolly (SBHLAB)[address] [place] [address] [place] Sodium [Moles/Vol] 130 mmol/L Low 135-145 [facility] Comment on above: Performed By: #### L AB15 ####Nailer Hand: BRENDA GREENJaidenDESEAN ([phone])[facility] (SBHLAB)[address] Urea nitrogen [Mass/Vol] 20 mg/dL High 7-17 [facility] Comment on above: Performed By: #### L AB15 ####Nailer Hand: BRENDA JEAN ([phone])[facility] (SBHLAB)[address] Basic metabolic 1998 panelon 06-29-2024 Anion gap [Moles/Vol] 8 mmol/L 3 - 13 mmol/L [facility] Calcium [Mass/Vol] 8.2 mg/dL Low 8.4 - 10. 4 mg/dL [facility] Chloride [Moles/Vol] 98 mmol/L 98 - 10 7 mmol/L [facility] CO2 [Moles/Vol] 24 mmol/L 22 - 30 mmol/L [facility] Creatinine [Mass/Vol] 3.02 mg/dL High 0.52 - 1.04 mg/dL [facility] GFR/1.73 sq M.predicted (S/P/Bld) [Vol rate/Area] 17.5 mL/min Low - PINF [facility] Comment on above: Calculation based on the Chronic Kidney Disease Epidemiology Collaboration (CKD-EPI) equation refit without adjustment for race Glucose [Mass/Vol] 120 mg/dL High 70 - 100 mg/dL [facility] Interpretation and review of laboratory results Abnormal [facility] Potassium [Moles/Vol] 3.7 mmol/L 3.5 - 5.1 mmol/L [facility] Sodium [Moles/Vol] 130 mmol/L Low 135 - 145 mmol/L [facility] Urea nitrogen [Mass/Vol] 20 mg/dL High 7 - 17 mg/dL [facility] CBC W Auto Differential pane l (Bld)on 06-29-2024 Basophils (Bld) [#/Vol] 0 10*3/uL 0.0 - 0.2 10*3/uL [facility] Basophils/100 WBC (Bld) 0.3 % 0.0 - 2.0 % [facility] Eosinophils (Bld) [#/Vol] 0.1 10*3/uL 0.0 - 0.5 10*3/uL [facility] Eosinophils/100 WBC (Bld) 1.6 % 0.0 - 6.0 % [facility] Erythrocyte distribution width (RBC) [Ratio] 13 % 11.5 - 15.0 % [facility] Hematocrit (Bld) [Volume fraction] 27.2 % Low 35.0 - 47.0 % [facility] Hemoglobin (Bld) [Mass/Vol] 8.6 g/dL Low 11.7 - 16.0 g/dL [facility] Immature granulocytes (Bld) [#/Vol] 0 10*3/uL NINF - 0.1 10*3/uL [facility] Immature granulocytes/100 WBC (Bld) 0.3 % 0.0 - 2.0 % [facility] Interpretation and review of laboratory results Abnormal [facility] Lymphocytes (Bld) [#/Vol] 2.6 10*3/uL 1.0 - 4.3 10*3/uL [facility] Lymphocytes/100 WBC (Bld) 39.4 % 15.0 - 45.0 % [facility] MCH (RBC) [Entitic mass] 30.8 pg 26.0 - 34.0 pg [facility] MCHC (RBC) [Mass/Vol] 31.6 % 30.5 - 36.0 % [facility] MCV (RBC) [Entitic vol] 97.5 fL 77.0 - 99.0 fL [facility] Monocytes (Bld) [#/Vol] 0.6 10*3/uL 0.0 - 0.9 10*3/uL [facility] Monocytes/100 WBC (Bld) 9.4 % 5.0 - 13.0 % [facility] Neutrophils (Bld) [#/Vol] 3.3 10*3/uL 1.8 - 7.5 10*3/uL [facility] Neutrophils/100 WBC (Bld) 49 % 38.0 - 82.0 % [facility] Nucleated RBC/100 WBC (Bld) [Ratio] 0 % [facility] Platelet mean volume (Bld) [Entitic vol] 9.3 fL 9.0 - 12.7 fL [facility] Platelets (Bld) [#/Vol] 164 10*3/uL 140 - 440 10*3/uL [facility] RBC (Bld) [#/Vol] 2.79 10*6/uL Low 3.80 - 5.20 10*6/uL [facility] WBC (Bld) [#/Vol] 6.7 10*3/uL 3.6 - 10.7 10*3/uL [facility] CBC WITH AUTO DIFFERENTIALon 06-29-2024 Basophils (Bld) [#/Vol] 0.0 10*3/uL Normal 0.0-0.2 [facility] Comment on above: Performed By: #### L [id number] ####Nailer Hand: BRENDA JEAN ([phone])[facility] [place] (SBAB)[address] Basophils/100 WBC (Bld) 0.3 % Normal 0.0-2.0 [facility] Comment on above: Performed By: #### L [id number] ####Nailer Hand: BRENDA JEAN ([phone])[facility]A [place] (SBHLAB)[address] Eosinophils (Bld) [#/Vol] 0.1 10*3/uL Normal 0.0-0.5 [facility] Comment on above: Performed By: #### L [id number] ####Nailer Hand: BRENDA JEAN ([phone])[facility]A [place] (SBHLAB)[address] [place] [address] Eosinophils/100 WBC (Bld) 1.6 % Normal 0.0-6.0 [facility] Comment on above: Performed By: #### L [id number] ####Nailer Hand: BRENDA JEAN ([phone])[facility]A [place] (SBHLAB)[address] [place] [address] [place] Erythrocyte distribution width (RBC) [Ratio] 13.0 % Normal 11.5-15.0 [facility] Comment on above: Performed By: #### L [id number] ####Nailer Hand: BRENDA JEAN ([phone])[facility] [place] (SBHLAB)[address] Hematocrit (Bld) [Volume fraction] 27.2 % Low 35.0-47.0 [facility] Comment on above: Performed By: #### L [id number] ####Nailer Hand: BRENDA CHASEDESEAN ([phone])[facility]A [facility]BAL[facility] (SBHLAB)[address] Hemoglobin (Bld) [Mass/Vol] 8.6 g/dL Low 11.7-16.0 [facility] Comment on above: Performed By: #### L [id number] ####Nailer Hand: BRENDA JEAN ([phone])[facility] [place] (SBAB)[address] IMMATURE GRANS % 0.3 % Normal 0.0-2.0 [facility] Comment on above: Performed By: #### L [id number] ####Nailer Hand: BRENDA JEAN ([phone])[facility] (SB[facility])[address] IMMATURE GRANS ABSOLUTE 0.0 10*3/uL Normal <0.1 [facility] Comment on above: Performed By: #### L [id number] ####Nailer Hand: BRENDA JEAN ([phone])[facility] (SB[facility])[address] [place] [address] Lymphocytes (Bld) [#/Vol] 2.6 10*3/uL Normal 1.0-4.3 [facility] Comment on above: Performed By: #### L [id number] ####Nailer Hand: BRENDA JEAN ([id number])[facility] ([facility])[address] Lymphocytes/100 WBC (Bld) 39.4 % Normal 15.0-45.0 [facility] Comment on above: Performed By: #### L [id number] ####Nailer Hand: BRENDA JEAN ([phone])[facility] ([facility])[address] MCH (RBC) [Entitic mass] 30.8 pg Normal 26.0-34.0 [facility] Comment on above: Performed By: #### L [id number] ####Nailer Hand: BRENDA JEAN ([phone])[facility] [place] (SB[facility])[address] MCHC 31.6 % Normal 30.5-36.0 [facility] Comment on above: Performed By: #### L [id number] ####Nailer Hand: BRENDA JEAN ([id number])[facility] [place] (SBHL[facility])[address] MCV (RBC) [Entitic vol] 97.5 fL Normal 77.0-99.0 [facility] Comment on above: Performed By: #### L [id number] ####Nailer Hand: BRENDA JEAN ([id number])[facility] [place] (SBHL[facility])[address] Monocytes (Bld) [#/Vol] 0.6 10*3/uL Normal 0.0-0.9 [facility] Comment on above: Performed By: #### L [id number] ####Nailer Hand: BRENDA JEAN ([id number])[facility] [place] (SB[facility])[address] Monocytes/100 WBC (Bld) 9.4 % Normal 5.0-13.0 [facility] Comment on above: Performed By: #### L [id number] ####Nailer Hand: BRENDA JEAN ([phone])[facility] [place] (SBHLAB)[address] NEUTROPHILS ABSOLUTE 3.3 10*3/uL Normal 1.8-7.5 [facility] Comment on above: Performed By: #### L [id number] ####Nailer Hand: BRENDA JEAN ([phone])[facility] [place] (SBHLAB)[address] Neutrophils/100 WBC (Bld) 49.0 % Normal 38.0-82.0 [facility] Comment on above: Performed By: #### L [id number] ####Nailer Hand: BRENDA JEAN ([id number])[facility] [place] (SBHLAB)[address] NRBC 0.0 /100 WBCs Normal 0.0-2.0 [facility] Comment on above: Performed By: #### L [id number] ####Nailer Hand: BRENDA JEAN ([phone])[facility] [place] ([facility])[address] Platelet mean volume (Bld) [Entitic vol] 9.3 fL Normal 9.0-12.7 [facility] Comment on above: Performed By: #### L [id number] ####Nailer Hand: BRENDA JEAN ([phone])[facility] [place] (SB[facility])[address] Platelets (Bld) [#/Vol] 164 10*3/uL Normal 140-440 [facility] Comment on above: Performed By: #### L [id number] ####Nailer Hand: BRENDA JEAN ([id number])[facility] [place] (SB[facility])[address] RBC (Bld) [#/Vol] 2.79 10*6/uL Low 3.80-5.20 [facility] Comment on above: Performed By: #### L [id number] ####Nailer Hand: BRENDA JEAN ([phone])[facility] [place] (SB[facility])155 [place] [address] [place] WBC (Bld) [#/Vol] 6.7 10*3/uL Normal 3.6-10.7 [facility] Comment on above: Performed By: #### L [id number] ####Nailer Hand: BRENDA JEAN ([phone])[facility] [place] (SB[facility])[address] Progress Noteon 06-29-2024 Progress Note Normal [facility] Progress Note Normal [facility] Progress Note Normal [facility] AMMONIAon 06-28-2024 Ammonia (P) [Moles/Vol] 12 umol/L Normal 30 [facility] Comment on above: Performed By: #### L [id number] ####Nailer Hand: BRENDA JEAN ([phone])[facility] ([facility])[address] CBC W Auto Differential pane l (Bld)on 06-28-2024 Basophils (Bld) [#/Vol] 0 10*3/uL 0.0 - 0.2 10*3/uL [facility] Basophils/100 WBC (Bld) 0.3 % 0.0 - 2.0 % [facility] Eosinophils (Bld) [#/Vol] 0.1 10*3/uL 0.0 - 0.5 10*3/uL [facility] Eosinophils/100 WBC (Bld) 1 % 0.0 - 6.0 % [facility] Erythrocyte distribution width (RBC) [Ratio] 13.1 % 11.5 - 15.0 % [facility] Hematocrit (Bld) [Volume fraction] 27.8 % Low 35.0 - 47.0 % [facility] Hemoglobin (Bld) [Mass/Vol] 8.8 g/dL Low 11.7 - 16.0 g/dL [facility] Immature granulocytes (Bld) [#/Vol] 0 10*3/uL NINF - 0.1 10*3/uL [facility] Immature granulocytes/100 WBC (Bld) 0.2 % 0.0 - 2.0 % [facility] Interpretation and review of laboratory results Abnormal [facility] Lymphocytes (Bld) [#/Vol] 2.1 10*3/uL 1.0 - 4.3 10*3/uL [facility] Lymphocytes/100 WBC (Bld) 20.7 % 15.0 - 45.0 % [facility] MCH (RBC) [Entitic mass] 30.8 pg 26.0 - 34.0 pg [facility] MCHC (RBC) [Mass/Vol] 31.7 % 30.5 - 36.0 % [facility] MCV (RBC) [Entitic vol] 97.2 fL 77.0 - 99.0 fL [facility] Monocytes (Bld) [#/Vol] 1.1 10*3/uL High 0.0 - 0.9 10*3/uL [facility] Monocytes/100 WBC (Bld) 10.8 % 5.0 - 13.0 % [facility] Neutrophils (Bld) [#/Vol] 6.7 10*3/uL 1.8 - 7.5 10*3/uL [facility] Neutrophils/100 WBC (Bld) 67 % 38.0 - 82.0 % [facility] Nucleated RBC/100 WBC (Bld) [Ratio] 0 % [facility] Platelet mean volume (Bld) [Entitic vol] 9.2 fL 9.0 - 12.7 fL [facility] Comment on above: MPV is a calculated measurement using platelet volume ratio Platelets (Bld) [#/Vol] 186 10*3/uL 140 - 440 10*3/uL [facility] RBC (Bld) [#/Vol] 2.86 10*6/uL Low 3.80 - 5.20 10*6/uL [facility] WBC (Bld) [#/Vol] 10 10*3/uL 3.6 - 10.7 10*3/uL [facility] CBC WITH AUTO DIFFERENTIALon 06-28-2024 Basophils (Bld) [#/Vol] 0.0 10*3/uL Normal 0.0-0.2 [facility] Comment on above: Performed By: #### L [id number] ####Nailer Hand: JULI JONES ([phone])[facility] [employer] (SWRLAB)[address] [place] [address] Basophils/100 WBC (Bld) 0.3 % Normal 0.0-2.0 [facility] Comment on above: Performed By: #### L [id number] ####Nailer Hand: JULI JONES ([phone])[facility] [employer] (SWRLAB)[address] [place] [address] Eosinophils (Bld) [#/Vol] 0.1 10*3/uL Normal 0.0-0.5 [facility] Comment on above: Performed By: #### L [id number] ####Nailer Hand: JULI JONES ([phone])[place] (SWRLAB)[address] [place] [address] Eosinophils/100 WBC (Bld) 1.0 % Normal 0.0-6.0 [facility] Comment on above: Performed By: #### L [id number] ####Nailer Hand: JULI JONES ([id number])[facility]ITALJoh[facility] [place]IG[place] [place] (SWRLAB)[address] [place] [address] Erythrocyte distribution width (RBC) [Ratio] 13.1 % Normal 11.5-15.0 [facility] Comment on above: Performed By: #### L [id number] ####Nailer Hand: JULI JONES ([phone])[facility]ITALJohanny WIGGINS [place] (SWRLAB)[address] [place] [address] Hematocrit (Bld) [Volume fraction] 27.8 % Low 35.0-47.0 [facility] Comment on above: Performed By: #### L [id number] ####Nailer Hand: JULI JONES ([phone])[facility]ITALJ[facility]IG[place] [place] (SWRLAB)[address] [place] [address] Hemoglobin (Bld) [Mass/Vol] 8.8 g/dL Low 11.7-16.0 [facility] Comment on above: Performed By: #### L [id number] ####Nailer Hand: JULI JONES ([phone])[facility]ITALJohanny [facility]IG[facility] [place] (SWRLAB)[address] [place] [address] IMMATURE GRANS % 0.2 % Normal 0.0-2.0 [facility] Comment on above: Performed By: #### L [id number] ####Nailer Hand: JULI JONES ([phone])[facility]ITALJ[facility] [place] (SWRLAB)[address] [place] [address] IMMATURE GRANS ABSOLUTE 0.0 10*3/uL Normal <0.1 [facility] Comment on above: Performed By: #### L [id number] ####Nailer Hand: JULI JONES ([phone])[facility]ITALJoh[facility]IG[facility] [place] (SWRLAB)[address] [place] [address] Lymphocytes (Bld) [#/Vol] 2.1 10*3/uL Normal 1.0-4.3 [facility] Comment on above: Performed By: #### L [id number] ####Nailer Hand: JULI JONES ([phone])[facility]ITALJoh[facility] [place] (SWRLAB)[address] [place] [address] Lymphocytes/100 WBC (Bld) 20.7 % Normal 15.0-45.0 [facility] Comment on above: Performed By: #### L [id number] ####Nailer Hand: JULI JONES ([phone])[facility]ITALJoh[facility] [place] (SWRLAB)[address] [place] [address] MCH (RBC) [Entitic mass] 30.8 pg Normal 26.0-34.0 [facility] Comment on above: Performed By: #### L [id number] ####Nailer Hand: JULI JONES ([phone])[facility]ITALJohanny [facility] [place] (SWRLAB)[address] [place] [address] MCHC 31.7 % Normal 30.5-36.0 [facility] Comment on above: Performed By: #### L [id number] ####Nailer Hand: JULI JONES ([phone])[facility]ITALJohanny [facility] [place] (SWRLAB)[address] [place] [address] MCV (RBC) [Entitic vol] 97.2 fL Normal 77.0-99.0 [facility] Comment on above: Performed By: #### L [id number] ####Nailer Hand: JULI JONES ([phone])[facility]ITALJohanny [facility]IG[facility]INS [place] (SWRLAB)[address] [place] [address] [place] Monocytes (Bld) [#/Vol] 1.1 10*3/uL High 0.0-0.9 [facility] Comment on above: Performed By: #### L [id number] ####Nailer Hand: JULI JONES ([phone])[place] (SWRLAB)[address] [place] [address] [place] Monocytes/100 WBC (Bld) 10.8 % Normal 5.0-13.0 [facility] Comment on above: Performed By: #### L [id number] ####Nailer Hand: JULI JONES ([phone])[facility]ITALJohanny [facility] [place] (SWRLAB)[address] [place] [address] [place] NEUTROPHILS ABSOLUTE 6.7 10*3/uL Normal 1.8-7.5 [facility] Comment on above: Performed By: #### L [id number] ####Nailer Hand: JULI JONES ([phone])[facility]ITALJohanny [facility] [place] (SWRLAB)[address] [place] [address] [place] Neutrophils/100 WBC (Bld) 67.0 % Normal 38.0-82.0 [facility] Comment on above: Performed By: #### L [id number] ####Nailer Hand: JULI JONES ([phone])[place] [employer] (SWRLAB)[address] [place] [address] [place] NRBC 0.0 /100 WBCs Normal 0.0-2.0 [facility] Comment on above: Performed By: #### L [id number] ####Nailer Hand: JULI JONES ([phone])[facility]ITALJoh[facility] [place] (SWRLAB)[address] [place] [address] [place] Platelet mean volume (Bld) [Entitic vol] 9.2 fL Normal 9.0-12.7 [facility] Comment on above: Result Comment: MPV is a calculated measurement using platelet volume ratio Performed By: #### L [id number] ####Nailer Hand: JULI JONES ([phone])[place] [employer] (SWRLAB)[address] [place] [address] [place] Platelets (Bld) [#/Vol] 186 10*3/uL Normal 140-440 [facility] Comment on above: Performed By: #### L [id number] ####Nailer Hand: JULI JONES ([phone])[facility]ITALJohanny [facility] [place] (SWRLAB)[address] [place] [address] [place] RBC (Bld) [#/Vol] 2.86 10*6/uL Low 3.80-5.20 [facility] Comment on above: Performed By: #### L [id number] ####Nailer Hand: JULI JONES ([phone])[facility]ITALJohanny [facility] [place] (SWRLAB)[address] [place] [address] [place] WBC (Bld) [#/Vol] 10.0 10*3/uL Normal 3.6-10.7 [facility] Comment on above: Performed By: #### L [id number] ####Nailer Hand: JULI JONES ([phone])[facility]ITALJohanny [facility]IG[facility] [place] (SWRLAB)[address] [place] [address] COMPLETE URINALYSISon 2023 BACTERIA (#/HPF) IN URINE Many Abnormal Negative [facility] Comment on above: Performed By: #### L [id number] ####Nailer Hand: JULI JONES ([id number])[facility]ITALJohanny [facility]IG[facility] [place] (SWRLAB)[address] [place] [address] BILIRUBIN, TOTAL PRESENCE IN URINE Negative Normal Negative [facility] Comment on above: Performed By: #### L [id number] ####Nailer Hand: JULI JONES ([phone])[facility]ITALJohanny [facility] [place] (SWRLAB)[address] [place] [address] Clarity (U) Cloudy Abnormal Clear [facility] Comment on above: Performed By: #### L [id number] ####Nailer Hand: JULI JONES ([phone])[facility] ROSALEI [place] (SWRLAB)[address] [place] [address] [place] Color (U) Light Yellow Normal Lt. Yellow [facility] Comment on above: Performed By: #### L [id number] ####Nailer Hand: JULI JONES ([phone])[facility]ITALJohanny [facility]IG[facility] [place] (SWRLAB)[address] [place] [address] [place] GLUCOSE (MG/DL) IN URINE Normal Normal Normal (<70) [facility] Comment on above: Performed By: #### L [id number] ####Nailer Hand: JULI JONES ([phone])[facility]ITALA [place] (SWRLAB)[address] [place] [address] [place] HEMOGLOBIN PRESENCE IN URINE Negative Normal Negative [facility] Comment on above: Performed By: #### L [id number] ####Nailer Hand: JULI JONES ([phone])[facility]A [place] (SWRLAB)[address] [place] [address] [place] Ketones Ql (U) Negative Normal Negative [facility] Comment on above: Performed By: #### L [id number] ####Nailer Hand: JULI JONES ([phone])[facility]ITALJohanny WIGGINS [place] (SWRLAB)[address] [place] [address] [place] LEUKOCYTE ESTERASE PRESENCE IN URINE BY TEST STRIP 500 Devang/uL Abnormal Negative [facility] Comment on above: Performed By: #### L [id number] ####Nailer Hand: JULI JONES ([phone])[facility]ITALJohanny [facility]IG[facility] [place] (SWRLAB)[address] [place] [address] [place] NITRITE PRESENCE IN URINE Negative Normal Negative [facility] Comment on above: Performed By: #### L [id number] ####Nailer Hand: JULI JONES ([phone])[facility] [place] (SWRLAB)[address] [place] [address] [place] pH (U) 6.0 [pH] Normal 5.0-8.0 [facility] Comment on above: Performed By: #### L [id number] ####Nailer Hand: JULI JONES ([phone])[facility]ITALJohanny WIG[facility] [place] (SWRLAB)[address] [place] [address] Protein (U) [Mass/Vol] 30 mg/dL Abnormal Negative [facility] Comment on above: Performed By: #### L [id number] ####Nailer Hand: JULI JONES ([phone])[facility]ITALJohanny [facility]IGGINS [place] (SWRLAB)[address] [place] [address] [place] RBC (#/HPF) IN URINE SEDIMENT 0-2 Normal 0-2 [facility] Comment on above: Performed By: #### L [id number] ####Nailer Hand: JULI JONES ([phone])[facility]ITALJohanny [facility]IGG[facility] [place] (SWRLAB)[address] [place] [address] Specific gravity (U) [Rel density] 1.005 Normal 1.005-1.03 0 [facility] Comment on above: Performed By: #### L [id number] ####Nailer Hand: JULI JONES ([phone])[facility]ITALJ[facility] [place] (SWRLAB)[address] [place] [address] Specimen volume (U) 12 mL Normal [facility] Comment on above: Performed By: #### L [id number] ####Nailer Hand: JULI JONES ([phone])[facility]ITALJohanny W[facility] [place] (SWRLAB)[address] [place] [address] [place] SQUAMOUS EPITHELIAL CELLS (#/HPF) IN URINE SEDIMENT Negative Normal 3-5 [facility] Comment on above: Performed By: #### L [id number] ####Nailer Hand: JULI JONES ([phone])[facility]ITALJohanny [facility]IG[facility] [place] (SWRLAB)[address] [place] [address] [place] UROBILINOGEN (MG/DL) IN URINE Normal Normal Normal (0-1) [facility] Comment on above: Performed By: #### L [id number] ####Nailer Hand: JULI JONES ([phone])[facility]ITALJohanny [facility]IG[facility] [place] (SWRLAB)[address] [place] [address] [place] WBC (LEUKOCYTE) (#/HPF) IN URINE SEDIMENT 51-100 Abnormal 0-5 [facility] Comment on above: Performed By: #### L [id number] ####Nailer Hand: JULI JONES ([phone])[facility]ITALJohanny [facility]IGG[facility] [place] (SWRLAB)[address] COMPREHENSIVE METABOLIC PANE Nestor 06-28-2024 Albumin [Mass/Vol] 3.6 g/dL Normal 3.5-5.0 [facility] Comment on above: Performed By: #### Kesha [id number], LAB17, [id number] ####Nailer Hand: JULI JONES ([phone])[facility]ITALJohanny [facility]IG[facility] [place] (SWRLAB)[address] [place] [address] [place] ALP [Catalytic activity/Vol] 80 U/L Normal 38-126 [facility] Comment on above: Performed By: #### Kesha DAVIS, LAB17, [id number] ####Nailer Hand: JULI JONES ([phone])[facility]ITALJohanny [facility] [place] (SWRLAB)[address] [place] [address] [place] ALT [Catalytic activity/Vol] 8 U/L Normal 0-34 [facility] Comment on above: Performed By: #### Kesha DAVIS, LAB17, [id number] ####Nailer Hand: JULI JONES ([phone])[facility]ITALJohanny [facility]IG[facility] [place] (SWRLAB)[address] [place] [address] [place] Anion gap [Moles/Vol] 8 mmol/L Normal 3-13 [facility] Comment on above: Performed By: #### L AB103, LAB17, [id number] ####Nailer Hand: JULI JONES ([phone])[facility]ITALJohanny WIGG[facility] [place] (SWRLAB)[address] [place] [address] [place] AST [Catalytic activity/Vol] 18 U/L Normal 15-46 [facility] Comment on above: Performed By: #### Kesha DAVIS, LAB17, [id number] ####Nailer Hand: JULI JONES ([phone])[facility]ITALJohanny WIGGINS [place] (SWRLAB)[address] Bilirubin [Mass/Vol] 0.5 mg/dL Normal 0.2-1.3 [facility] Comment on above: Performed By: #### Kesha DAVIS, LAB17, [id number] ####Nailer Hand: JULI JONES ([phone])[facility]ITALJohanny [facility]IGG[facility] [place] (SWRLAB)[address] Calcium [Mass/Vol] 8.5 mg/dL Normal 8.4-10.4 [facility] Comment on above: Performed By: #### Kesha DAVIS, LAB17, [id number] ####Nailer Hand: JULI JONES ([phone])[facility]ITALJohanny [facility]IG[facility] [place] (SWRLAB)[address] [place] [address] [place] Chloride [Moles/Vol] 98 mmol/L Normal 98-107 [facility] Comment on above: Performed By: #### Kesha DAVIS, LAB17, [id number] ####Nailer Hand: JULI JONES ([phone])[facility]ITALJohanny [facility] [place] (SWRLAB)[address] [place] [address] [place] CO2 [Moles/Vol] 25 mmol/L Normal 22-30 [facility] Comment on above: Performed By: #### Kseha DAVIS, LAB17, [id number] ####Nailer Hand: JULI JONES ([phone])[facility]ITALJohanny MATOSROSALIE R[place]TMAN (SWRLAB)[address] [place] [address] [place] Creatinine [Mass/Vol] 3.23 mg/dL High 0.52-1.04 [facility] Comment on above: Performed By: #### Kesha DAVIS, LAB17, [id number] ####Nailer Hand: JULI JONES ([phone])[facility]ITALJoh[facility] [place] (SWRLAB)[address] [place] [address] [place] GLOMERULAR FILTRATION RATE ML/MIN/1.73 SQ M.PREDICTED 16.1 mL/min/1.73m*2 Low >60.0 [facility] Comment on above: Result Comment: Calc ulation based on the Chronic Kidney Disease Epidemiology Collaboration (CKD-EPI) equation refit without adjustment for race Performed By: #### Kesha DAVIS, LAB17, [id number] ####Nailer Hand: JULI JONES ([phone])[facility]ITALJohanny WIG[facility] [place] (SWRLAB)[address] [place] [address] [place] Glucose [Mass/Vol] 105 mg/dL High 70-100 [facility] Comment on above: Performed By: #### Kesha DAVIS, LAB17, [id number] ####Nailer Hand: JULI JONES ([phone])[facility]ITALJoh[facility] [place] (SWRLAB)[address] [place] [address] [place] Potassium [Moles/Vol] 3.9 mmol/L Normal 3.5-5.1 [facility] Comment on above: Performed By: #### Kesha DAVIS, LAB17, [id number] ####Nailer Hand: JULI JONES ([phone])[facility]ITALJohanny [facility] [place] (SWRLAB)[address] [place] [address] [place] Protein [Mass/Vol] 6.9 g/dL Normal 6.3-8.2 [facility] Comment on above: Performed By: #### Kesha DAVIS, LAB17, [id number] ####Nailer Hand: JULI JONES ([phone])[facility]ITALJohanny [facility] [place] (SWRLAB)[address] [place] [address] [place] Sodium [Moles/Vol] 130 mmol/L Low 135-145 [facility] Comment on above: Performed By: #### Kesha DAVIS, LAB17, [id number] ####Nailer Hand: JULI JONES ([phone])[facility]ITALJohanny [facility]IGG[facility] [place] (SWRLAB)[address] Urea nitrogen [Mass/Vol] 21 mg/dL High 7-17 [facility] Comment on above: Performed By: #### L AB103, LAB17, [id number] ####Nailer Hand: JULI JONES ([phone])[facility]ODSBOLIVAR MOURA (SWRLAB)[address] Comprehensive metabolic 1998 panelon 06-28-2024 Albumin [Mass/Vol] 3.6 g/dL 3.5 - 5.0 g/dL [facility] ALP [Catalytic activity/Vol] 80 U/L 38 - 126 U/L [facility] ALT [Catalytic activity/Vol] 8 U/L 0 - 34 U/L [facility] Anion gap [Moles/Vol] 8 mmol/L 3 - 13 mmol/L [facility] AST [Catalytic activity/Vol] 18 U/L 15 - 46 U/L [facility] Bilirubin [Mass/Vol] 0.5 mg/dL 0.2 - 1 .3 mg/dL [facility] Calcium [Mass/Vol] 8.5 mg/dL 8.4 - 10. 4 mg/dL [facility] Chloride [Moles/Vol] 98 mmol/L 98 - 10 7 mmol/L [facility] CO2 [Moles/Vol] 25 mmol/L 22 - 30 mmol/L [facility] Creatinine [Mass/Vol] 3.23 mg/dL High 0.52 - 1.04 mg/dL [facility] GFR/1.73 sq M.predicted (S/P/Bld) [Vol rate/Area] 16.1 mL/min Low - PINF [facility] Comment on above: Calculation based on the Chronic Kidney Disease Epidemiology Collaboration (CKD-EPI) equation refit without adjustment for race Glucose [Mass/Vol] 105 mg/dL High 70 - 100 mg/dL [facility] Interpretation and review of laboratory results Abnormal [facility] Potassium [Moles/Vol] 3.9 mmol/L 3.5 - 5.1 mmol/L [facility] Protein [Mass/Vol] 6.9 g/dL 6.3 - 8.2 g/dL [facility] Sodium [Moles/Vol] 130 mmol/L Low 135 - 145 mmol/L [facility] Urea nitrogen [Mass/Vol] 21 mg/dL High 7 - 17 mg/dL [facility] ECG 12-LEADon 06-28-2024 ECG 12-LEAD IMPRESSION: Junctional rhythm Borderline repolarization abnormality Electronically Signed On 06-28-2024 12:23:29 EST by Sarah Duran Normal [facility] ED Nursing Noteon 06-28-2024 ED Nursing Note Report to IDALIA Mcconnell @ [facility]. Normal [facility] ED Nursing Note Attempted report to [facility]E [facility]. Nurse busy. Will call back for report Normal [facility] ED Nursing Note Infante emptied of 900 cc clear yellow urine[facility] Pt transferred with clothing, purse and cell phone. Normal [facility] ED Nursing Note Pt given kathy kun and macaroni and cheese meal. 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 Asking for water, for her cell phone, for extra blankets, to change the TV channel. Call light in reach, bedside table in reach, pt's cell phone on bedside table. Normal [facility] ED Nursing Note Pt unable to urinate despite being on bedpan several times. States she wants a pure wick- advised pt we do not place those. Pt asking for infante catheter. Normal [facility] ED Nursing Note Attempted IV x2 with out success. Paramedics also tried IV without success. Labs obtained using butterfly needle. Dr. Duran notified. Normal [facility] ED Nursing Note Normal [facility] ED Provider Noteon ED Provider Note Normal [facility] Laboratory - Chemistry and C hemistry - challengeon 06-28-2024 Glucose [Mass/Vol] 164 mg/dL High 70 - 100 mg/dL [facility] Ammonia (P) [Moles/Vol] 12 umol/L 9 - 30 umol/L [facility] Troponin I.cardiac [Mass/Vol] ng/mL NINF - 0.034 ng/mL [facility] Magnesium [Mass/Vol] 2.2 mg/dL 1.6 - 2 .3 mg/dL [facility] Laboratory - Microbiology an d Antimicrobial susceptibilityon 06-28-2024 FLUAV RNA PAULINA+probe Ql (Resp) Not detected Not Detected [facility] FLUBV RNA PAULINA+probe Ql (Resp) Not detected Not Detected [facility] RSV RNA PAULINA+probe Ql (Resp) Not detected Not Detected [facility] SARS-CoV-2 (COVID-19) RNA PAULINA+probe Ql (Resp) Not detected Not Detected [facility] SARS-CoV-2 (COVID-19) RNA PAULINA+probe Ql (Unsp spec) Methodology: real-time, RT-PCR The SARS-CoV-2, Flu A/B, and RSV Combo assay is intended for in vitro diagnostic use under the FDA Emergency Use Authorization (EUA). This test has not been FDA cleared or approved. In compliance with this authorization, please visit www.fda.gov/media/400276/do wnload or www.fda.gov/media/128393/do wnload to access the applicable information sheets. [facility] MAGNESIUMon 06-28-2024 Magnesium [Mass/Vol] 2.2 mg/dL Normal 1.6-2.3 [facility] Comment on above: Performed By: #### L [id number], [id number], [id number] ####Nailer Hand: JULI JONES ([id number])[facility] ([facility])[address] [place] [place] [address] Magnesium [Mass/Vol]on 06-28 Interpretation and review of laboratory results Normal [facility] No Panel Informationon 06-28 Interpretation and review of laboratory results Abnormal [facility]formed by: [facility], [address] [place], [place] [id number] CLIA ID: [id number] [facility] Interpretation and review of laboratory results Normal [facility] P [place] 0 degrees [facility] CA Interval 0 ms [facility] QRS [place] 21 degrees [facility] QRSD Interval 107 ms [facility] QT Interval 423 ms [facility] QTC Interval 430 ms [facility] T Wave [place] 0 degrees [facility] Junctional rhythm Borderline repolarization abnormality Electronically Signed On 06-28-2024 12:23:29 EST by Sarah Duran CV Sarah Aguilar MD - 06/28/2024 IMPRESSION: Junctional rhythm Borderline repolarization abnormality Electronically Signed On 06-28-2024 12:23:29 EST by Sarah Duran [facility] SARS-COV-2, FLU A/B, AND RSV COMBOon 06-28-2024 SARS-CoV-2 (COVID-19) RNA PAULINA+probe Ql (Unsp spec) Normal [facility] Comment on above: Performed By: #### L [id number] ####Nailer Hand: JULI JONES ([id number])[facility] ([facility])[address] [place] [address] SARS-CoV-2, Flu A/B, and RSV Comboon 06-28-2024 Interpretation and review of laboratory results Normal [facility] TROPONIN Ion 06-28-2024 Troponin I.cardiac [Mass/Vol] ng/mL Normal <0.034 [facility] Comment on above: Result Comment: HARRIET Mayfield COMMENTS:Patients with high levels of Biotin oral intake (ie >5 mg/day) may have falsely decreased Troponin levels. Performed By: #### L [id number], [id number], [id number] ####Nailer Hand: JULI JONES ([id number])[facility] ([facility])[address] [place] [address] Troponin I.cardiac [Mass/Vol ]on 06-28-2024 Interpretation and review of laboratory results Normal [facility] Patients with high l evels of Biotin oral intake (ie >5 mg/day) may have falsely decreased Troponin levels. [facility] URINE CULTUREon 06-28-2024 Bacteria identified Cx Nom (U) Normal [facility] Comment on above: Performed By: #### L [id number] ####Nailer Hand: JULI JONES ([id number])[facility] ([facility])[address] [place] [address] Urinalysis complete panel (U )Ordered By: Gabriela Acosta on 06-28-2024 Bacteria LM.HPF (Urine sed) [#/Area] Many Abnormal Negative /HPF [facility] Bilirubin Ql (U) Negative Negative mg/dL [facility] Clarity (U) Cloudy Abnormal Clear [facility] Color (U) Light Yellow Lt. Yellow [facility] Epithelial cells.squamous LM.HPF (Urine sed) [#/Area] Negative [facility] Glucose Ql (U) Normal Normal (<70) mg/dL [facility] Hemoglobin Ql (U) Negative Negative mg/dL [facility] Interpretation and review of laboratory results Abnormal [facility] Ketones (U) [Mass/Vol] Negative Negat jayne mg/dL [facility] Leukocyte esterase Test strip Ql (U) 500 Abnormal Negative Devang/uL [facility] Nitrite Ql (U) Negative Negative [facility] pH (U) 6.0 [pH] 5.0 - 8.0 pH [facility] Protein (U) [Mass/Vol] 30 mg/dL Abnormal Negative [facility] RBC LM.HPF (Urine sed) [#/Area] 0-2 [facility] Specific gravity (U) [Rel density] 1.005 1.005 - 1.030 [facility] Urobilinogen (U) [Mass/Vol] Normal Normal (0-1) mg/dL [facility] Volume, Urine 12 mL [facility] WBC LM.HPF (Urine sed) [#/Area] 51-100 Abnormal [facility] Vital signson 06-28-2024 Heart rate 62 /min bpm [facility] XR Chest Single viewon 06-28 FINDINGS AND IMPRESS ION: SUPPORT DEVICES: None OSSEOUS STRUCTURES: Unremarkable. HEART AND MEDIASTINUM: The cardiomediastinal silhouette appears unchanged from the prior exam. LUNGS AND PLEURA: The lungs are clear. No sizable pleural effusion. Report Dictated on Electronically Signed By: Tyler Guzman MD Electronically Signed Date/Time: 06/28/2024 12:35 PM [facility] [place] [employer] SYSTEM Patient Name: JESSY WEN : 1965 Exam Date/Time: 06/28/2024 12:14 Procedure: XR CHEST 1 VIEW Ordering Provider: DURAN JONATHAN Reason For Exam: Feeling unwell CHEST CLINICAL INDICATION: Malaise TECHNIQUE: AP portable chest COMPARISON: 09/04/2023 [facility] Tyler Guzman MD - 06/28/2024 Patient Name: [facility]KEON : 1965 [id number] Exam Date/Time: 06/28/2024 12:14 Procedure: XR CHEST [...] Electronically Signed Date/Time: 06/28/2024 12:35 PM EST [facility] Radiology Study observation (narrative) [facility] XR Chest Single viewOrdered By: Tyler Guzman on 06-28-2024 [facility] [employer] Work Phone: Progress Noteon 06-18-2024 Progress Note Normal [facility] Progress Noteon 06-14-2024 Progress Note Normal [facility] 25-hydroxyvitamin D3 [Mass/V ol]on 04-17-2024 Interpretation and review of laboratory results Abnormal [facility] Therapy is based on measurement of Total 25-OHD with the following classification levels: Less than 20 ng/mL: Indicative of Vit D deficiency 20-30 ng/mL: Suggests Vit D insufficiency Optimal: Greater than or equal to 30 ng/mL Test performed by [employer]etitive Immunoassay, measuring Total Vitamin D, not individual fractions. [facility] Creatinine (U) [Mass/Vol]on 04-17-2024 CREATININE, URINE 16.2 mg/dL No Range [facility] Ferritinon 04-17-2024 Ferritin [Mass/Vol] 75 ng/mL 11 - 264 ng/mL [facility] Ferritin [Mass/Vol]on 2023 Interpretation and review of laboratory results Normal [facility] Hemoglobin (Bld) [Mass/Vol]o n 04-17-2024 Hematocrit (Bld) [Volume fraction] 30.9 % Low 35.0 - 47.0 % [facility] Interpretation and review of laboratory results Abnormal [facility] Hemoglobin and hematocrit, b loodon 04-17-2024 Hemoglobin (Bld) [Mass/Vol] 10.4 g/dL Low 11.7 - 16.0 g/dL [facility] Iron and Iron binding capaci ty panelon 04-17-2024 Interpretation and review of laboratory results Abnormal [facility] Iron [Mass/Vol] 53 ug/dL 37 - 170 ug/dL [facility] Iron binding capacity [Mass/Vol] 244 ug/dL Low 261 - 497 ug/dL [facility] Iron saturation [Mass fraction] 22 % 15 - 50 % [facility] No Panel Informationon 04-17 [facility] PTH, intacton 04-17-2024 Parathyrin.intact [Mass/Vol] 161.6 pg/mL High 7.5 - 53.5 pg/mL [facility] Parathyrin.intact [Mass/Vol] on 04-17-2024 Interpretation and review of laboratory results Abnormal [facility] Protein, urine, randomon Interpretation and review of laboratory results Abnormal [facility] Protein (U) [Mass/Vol] 71 mg/dL High 0 - 1 2 mg/dL [facility] Renal function 2000 panelon 04-17-2024 Albumin [Mass/Vol] 3.8 g/dL 3.5 - 5.0 g/dL [facility] Anion gap [Moles/Vol] 7 mmol/L 3 - 13 mmol/L [facility] Calcium [Mass/Vol] 9.1 mg/dL 8.4 - 10. 4 mg/dL [facility] Chloride [Moles/Vol] 99 mmol/L 98 - 10 7 mmol/L [facility] CO2 [Moles/Vol] 25 mmol/L 22 - 30 mmol/L [facility] Creatinine [Mass/Vol] 2.45 mg/dL High 0.52 - 1.04 mg/dL [facility] GFR/1.73 sq M.predicted (S/P/Bld) [Vol rate/Area] 22.5 mL/min Low - PINF [facility] Comment on above: Calculation based on the Chronic Kidney Disease Epidemiology Collaboration (CKD-EPI) equation refit without adjustment for race Glucose [Mass/Vol] 113 mg/dL High 70 - 100 mg/dL [facility] Interpretation and review of laboratory results Abnormal [facility] Phosphate [Mass/Vol] 3.8 mg/dL 2.5 - 4 .5 mg/dL [facility] Potassium [Moles/Vol] 3.9 mmol/L 3.5 - 5.1 mmol/L [facility] Sodium [Moles/Vol] 131 mmol/L Low 135 - 145 mmol/L [facility] Urea nitrogen [Mass/Vol] 16 mg/dL 7 - 17 mg/dL [facility] Vitamin D Deficiency Screeni ng (Vit D 25)on 04-17-2024 25-hydroxyvitamin D3 [Mass/Vol] 24 ng/mL Low 30 - 100 ng/mL [facility] CNCOon 12-01-2023 CNCO Letter Text Normal [facility] Basic metabolic 1998 panelon 09-04-2023 Anion gap [Moles/Vol] 7 mmol/L 3 - 13 mmol/L [facility] Calcium [Mass/Vol] 8.5 mg/dL 8.4 - 10. 4 mg/dL [facility] Chloride [Moles/Vol] 98 mmol/L 98 - 10 7 mmol/L [facility] CO2 [Moles/Vol] 25 mmol/L 22 - 30 mmol/L [facility] Creatinine [Mass/Vol] 2.23 mg/dL High 0.52 - 1.04 mg/dL [facility] GFR/1.73 sq M.predicted MDRD (S/P/Bld) [Vol rate/Area] 25.3 mL/min/{1.73_m2} Low - PINF [facility] Comment on above: Calculation based on the Chronic Kidney Disease Epidemiology Collaboration (CKD-EPI) equation refit without adjustment for race Glucose [Mass/Vol] 91 mg/dL 70 - 100 mg/dL [facility] Interpretation and review of laboratory results Abnormal [facility] Potassium [Moles/Vol] 4.0 mmol/L 3.5 - 5.1 mmol/L [facility] Sodium [Moles/Vol] 130 mmol/L Low 135 - 145 mmol/L [facility] Urea nitrogen [Mass/Vol] 19 mg/dL High 7 - 17 mg/dL [facility] CBC W Auto Differential pane l (Bld)Ordered By: Mayito Daily on 09-04-2023 Basophils (Bld) [#/Vol] 0.0 10*3/uL 0.0 - 0.2 10*3/uL [facility] Basophils/100 WBC (Bld) 0.4 % 0.0 - 2.0 % [facility] Eosinophils (Bld) [#/Vol] 0.2 10*3/uL 0.0 - 0.5 10*3/uL [facility] Eosinophils/100 WBC (Bld) 3.1 % 1.0 - 6.0 % [facility] Erythrocyte distribution width (RBC) [Ratio] 13.3 % 11.5 - 14.5 % [facility] Hematocrit (Bld) [Volume fraction] 26.7 % Low 35.0 - 47.0 % [facility] Hemoglobin (Bld) [Mass/Vol] 9.1 g/dL Low 11.7 - 16.0 g/dL [facility] Immature granulocytes (Bld) [#/Vol] 0.0 10*3/uL NINF - 0.0 10*3/uL [facility] Immature granulocytes/100 WBC (Bld) 0.4 % High NINF - 0.0 % [facility] Interpretation and review of laboratory results Abnormal [facility] Lymphocytes (Bld) [#/Vol] 2.0 10*3/uL 1.0 - 4.3 10*3/uL [facility] Lymphocytes/100 WBC (Bld) 38.3 % 20.0 - 40.0 % [facility] MCH (RBC) [Entitic mass] 31.3 pg 26.0 - 34.0 pg [facility] MCHC (RBC) [Mass/Vol] 34.1 % 32.0 - 36.0 % [facility] MCV (RBC) [Entitic vol] 91.8 fL 80.0 - 98.0 fL [facility] Monocytes (Bld) [#/Vol] 0.6 10*3/uL 0.0 - 0.8 10*3/uL [facility] Monocytes/100 WBC (Bld) 12.4 % High 2.0 - 10.0 % [facility] Neutrophils (Bld) [#/Vol] 2.3 10*3/uL 1.8 - 7.0 10*3/uL [facility] Neutrophils/100 WBC (Bld) 45.4 % 40.0 - 80.0 % [facility] Platelet mean volume (Bld) [Entitic vol] 9.0 fL 7.4 - 12.4 fL [facility] Comment on above: MPV is a calculated measurement using platelet volume ratio Platelets (Bld) [#/Vol] 225 10*3/uL 140 - 440 10*3/uL [facility] RBC (Bld) [#/Vol] 2.91 10*6/uL Low 3.8 - 5.20 10*6/uL [facility] WBC (Bld) [#/Vol] 5.1 10*3/uL 3.6 - 10.7 10*3/uL [facility] Laboratory - Chemistry and C hemistry - challengeon 09-04-2023 Troponin I.cardiac [Mass/Vol] ng/mL NINF - 0.034 ng/mL [facility] Laboratory - Microbiology an d Antimicrobial susceptibilityon 09-04-2023 FLUAV RNA PAULINA+probe Ql (Resp) Not detected Not Detected [facility] FLUBV RNA PAULINA+probe Ql (Resp) Not detected Not Detected [facility] RSV RNA PAULINA+probe Ql (Resp) Not detected Not Detected [facility] SARS-CoV-2 (COVID-19) RNA PAULINA+probe Ql (Resp) Not detected Not Detected [facility] SARS-CoV-2 (COVID-19) RNA PAULINA+probe Ql (Unsp spec) Methodology: real-time, RT-PCR The SARS-CoV-2, Flu A/B, and RSV Combo assay is intended for in vitro diagnostic use under the FDA Emergency Use Authorization (EUA). This test has not been FDA cleared or approved. In compliance with this authorization, please visit www.fda.gov/media/194547/do wnload or www.fda.gov/media/519028/do wnload to access the applicable information sheets. [facility] No Panel Informationon 09-04 P [place] 9 degrees [facility] CA Interval 148 ms [facility] QRS [place] 20 degrees [facility] QRSD Interval 96 ms [facility] QT Interval 408 ms [facility] QTC Interval 391 ms [facility] T Wave [place] 25 degrees [facility] SINUS RHYTHM Electronically Signed On 09-04-2023 04:08:56 EST by Lilia Beard CV Lilia Zayas MD - 09/04/2023 IMPRESSION: SINUS RHYTHM Electronically Signed On 09-04-2023 04:08:56 EST by Lilia Beard [facility] SARS-CoV-2, Flu A/B, and RSV Comboon 09-04-2023 Interpretation and review of laboratory results Normal [facility] Troponin I.cardiac [Mass/Vol ]on 09-04-2023 Interpretation and review of laboratory results Normal [facility] Patients with high l evels of Biotin oral intake (ie >5 mg/day) may have falsely decreased Troponin levels. [facility] Urinalysis complete panel (U )on 09-04-2023 Bacteria LM.HPF (Urine sed) [#/Area] Negative Negative /HPF [facility] Bilirubin Ql (U) Negative Negative mg/dL [facility] Clarity (U) Clear Clear [facility] Color (U) Colorless Lt. Yellow [facility] Epithelial cells.squamous LM.HPF (Urine sed) [#/Area] 0-2 [facility] Glucose Ql (U) Normal Normal (<70) mg/dL [facility] Hemoglobin Ql (U) Negative Negative mg/dL [facility] Interpretation and review of laboratory results Abnormal [facility] Ketones (U) [Mass/Vol] Negative Negat jayne mg/dL [facility] Leukocyte esterase Test strip Ql (U) Negative Negative Devang/uL [facility] Mucus LM.HPF (Urine sed) [#/Area] Few Negative /LPF [facility] Nitrite Ql (U) Negative Negative [facility] pH (U) 7.0 [pH] 5.0 - 8.0 pH [facility] Protein (U) [Mass/Vol] 50 mg/dL Abnormal Negative [facility] RBC LM.HPF (Urine sed) [#/Area] 0-2 [facility] Specific gravity (U) [Rel density] 1.003 Low 1.005 - 1.030 [facility] Urobilinogen (U) [Mass/Vol] Normal Normal (0-1) mg/dL [facility] Volume, Urine 12 mL [facility] WBC LM.HPF (Urine sed) [#/Area] 0-2 [facility] Vital signson 09-04-2023 Heart rate 55 /min bpm [facility] XR Chest Single viewon 09-04 No acute abnormality Report Dictated on Electronically Signed By: Dario Torres MD Electronically Signed Date/Time: 09/04/2023 4:21 AM EST [facility] Patient Name: JESSY WEN : [...] also arthritic change about the glenohumeral joints. [facility] Dario Torres MD - 09/04/2023 Patient Name: JESSY MCKEON : 1965 Exam Date/Time: 09/04/2023 04:13 Procedure: [...] Electronically Signed Date/Time: 09/04/2023 4:21 AM EST [employer] Radiology Study observation (narrative) [facility] XR Chest Single viewOrdered By: Dario Torres on 09-04-2023 [facility] Work Phone: CBC W Auto Differential pane l (Bld)Ordered By: Estela Whelan on 08-25-2023 Basophils (Bld) [#/Vol] 0.0 10*3/uL 0.0 - 0.2 10*3/uL [facility] Basophils/100 WBC (Bld) 0.2 % 0.0 - 2.0 % [facility] Eosinophils (Bld) [#/Vol] 0.1 10*3/uL 0.0 - 0.5 10*3/uL [facility] Eosinophils/100 WBC (Bld) 1.6 % 1.0 - 6.0 % [facility] Erythrocyte distribution width (RBC) [Ratio] 14.5 % 11.5 - 14.5 % [facility] Hematocrit (Bld) [Volume fraction] 30.5 % Low 35.0 - 47.0 % [facility] Hemoglobin (Bld) [Mass/Vol] 10.0 g/dL Low 11.7 - 16.0 g/dL [facility] Interpretation and review of laboratory results Abnormal [facility] Lymphocytes (Bld) [#/Vol] 1.1 10*3/uL 1.0 - 4.3 10*3/uL [facility] Lymphocytes/100 WBC (Bld) 27.2 % 20.0 - 40.0 % [facility] MCH (RBC) [Entitic mass] 30.3 pg 26.0 - 34.0 pg [facility] MCHC (RBC) [Mass/Vol] 32.9 % 32.0 - 36.0 % [facility] MCV (RBC) [Entitic vol] 92.3 fL 80.0 - 98.0 fL [facility] Monocytes (Bld) [#/Vol] 0.6 10*3/uL 0.0 - 0.8 10*3/uL [facility] Monocytes/100 WBC (Bld) 14.4 % High 2.0 - 10.0 % [facility] Neutrophils (Bld) [#/Vol] 2.3 10*3/uL 1.8 - 7.0 10*3/uL [facility] Neutrophils/100 WBC (Bld) 56.6 % 40.0 - 80.0 % [facility] Nucleated RBC/100 WBC (Bld) [Ratio] 0.0 % [facility] Platelet mean volume (Bld) [Entitic vol] 7.0 fL Low 7.4 - 12.4 fL [facility] Platelets (Bld) [#/Vol] 191 10*3/uL 140 - 440 10*3/uL [facility] RBC (Bld) [#/Vol] 3.30 10*6/uL Low 3.8 - 5.20 10*6/uL [facility] WBC (Bld) [#/Vol] 4.1 10*3/uL 3.6 - 10.7 10*3/uL [facility] CT Head WO contraston 2023 No acute findings. Report Dictated on Electronically Signed By: Grant [place] MD Electronically Signed Date/Time: 08/25/2023 5:48 PM EST [facility] Patient Name: JESSY WEN : [...] and the mastoid air cells are clear. [facility] Grant [place] MD - 08/25/2023 Patient [...] Electronically Signed Date/Time: 08/25/2023 5:48 PM EST [facility] Radiology Study observation (narrative) [facility] CT Head WO contrastOrdered B y: Grant Dale on 08-25-2023 [facility] [employer] Work Phone: Comprehensive metabolic 1998 panelon 08-25-2023 Albumin [Mass/Vol] 3.7 g/dL 3.5 - 5.0 g/dL [facility] ALP [Catalytic activity/Vol] 80 U/L 38 - 126 U/L [facility] ALT [Catalytic activity/Vol] 7 U/L 0 - 34 U/L [facility] Anion gap [Moles/Vol] 9 mmol/L 3 - 13 mmol/L [facility] AST [Catalytic activity/Vol] 23 U/L 15 - 46 U/L [facility] Bilirubin [Mass/Vol] 0.4 mg/dL 0.2 - 1 .3 mg/dL [facility] Calcium [Mass/Vol] 8.7 mg/dL 8.4 - 10. 4 mg/dL [facility] Chloride [Moles/Vol] 92 mmol/L Low 98 - 10 7 mmol/L [facility] CO2 [Moles/Vol] 26 mmol/L 22 - 30 mmol/L [facility] Creatinine [Mass/Vol] 2.67 mg/dL High 0.52 - 1.04 mg/dL [facility] GFR/1.73 sq M.predicted MDRD (S/P/Bld) [Vol rate/Area] 20.4 mL/min/{1.73_m2} Low - PINF [facility] Comment on above: Calculation based on the Chronic Kidney Disease Epidemiology Collaboration (CKD-EPI) equation refit without adjustment for race Glucose [Mass/Vol] 105 mg/dL High 70 - 100 mg/dL [facility] Potassium [Moles/Vol] 4.0 mmol/L 3.5 - 5.1 mmol/L [facility] Protein [Mass/Vol] 7.2 g/dL 6.3 - 8.2 g/dL [facility] Sodium [Moles/Vol] 126 mmol/L Low 135 - 145 mmol/L [facility] Urea nitrogen [Mass/Vol] 22 mg/dL High 7 - 17 mg/dL [facility] Hepatitis 1996 panel (S)on 0 08-25-2023 HAV IgM IA Ql Not detected Not Detected [facility] HBV core IgM IA Ql Not detected Not Detected [facility] HBV surface Ag IA Ql Not detected Not Detected [facility] HCV Ab IA Ql Not detected Not Detected [facility] Comment on above: Patients with DETECT ED Hepatitis C Ab results should have a new specimen submitted for supplemental testing with a Hepatitis C Quantitative RNA assay (viral load), if clinically indicated. Interpretation and review of laboratory results Normal [facility] Laboratory - Chemistry and C hemistry - challengeon 08-25-2023 Lipase [Catalytic activity/Vol] 223 U/L 23 - 300 U/L [facility] Laboratory - Drug toxicology on 08-25-2023 Valproate [Mass/Vol] 70 ug/mL 50 - 12 0 ug/mL [facility] Acetaminophen [Mass/Vol] ug/mL Low 10.0 - 30.0 ug/mL [facility] Salicylates [Mass/Vol] mg/dL NINF - 20.0 mg/dL [facility] Laboratory - Microbiology an d Antimicrobial susceptibilityon 08-25-2023 FLUAV RNA PAULINA+probe Ql (Resp) Not detected Not Detected [facility] FLUBV RNA PAULINA+probe Ql (Resp) Not detected Not Detected [facility] RSV RNA PAULINA+probe Ql (Resp) Not detected Not Detected [facility] SARS-CoV-2 (COVID-19) RNA PAULINA+probe Ql (Resp) Not detected Not Detected [facility] Lipase [Catalytic activity/V ol]on 08-25-2023 Interpretation and review of laboratory results Normal [facility] No Panel Informationon 08-25 P [place] 32 degrees [facility] CA Interval 205 ms [facility] QRS [place] 2 degrees [facility] QRSD Interval 106 ms [facility] QT Interval 414 ms [facility] QTC Interval 442 ms [facility] T Wave [place] 2 degrees [facility] Sinus rhythm Borderline prolonged CA interval Borderline T wave abnormalities Electronically Signed On 08-25-2023 18:26:57 EST by Theresa Watson M D - 08/25/2023 IMPRESSION: Sinus rhythm Borderline prolonged CA interval Borderline T wave abnormalities Electronically Signed On 08-25-2023 18:26:57 EST by Theresa Briggs [facility] Interpretation and review of laboratory results Normal [facility] Interpretation and review of laboratory results Abnormal [facility] SARS-CoV-2, Flu A/B, and RSV Comboon 08-25-2023 Interpretation and review of laboratory results Normal [facility] Methodology: real-ti me, RT-PCR [facility] Salicylates [Mass/Vol]on Interpretation and review of laboratory results Normal [facility] Urinalysis complete panel (U )Ordered By: Tamara Mahoney on 08-25-2023 Bacteria LM.HPF (Urine sed) [#/Area] Negative Negative /HPF [facility] Bilirubin Ql (U) Negative Negative mg/dL [facility] Clarity (U) Clear Clear [facility] Color (U) Colorless Lt. Yellow [facility] Epithelial cells.squamous LM.HPF (Urine sed) [#/Area] 0-2 [facility] Glucose Ql (U) Normal Normal (<70) mg/dL [facility] Hemoglobin Ql (U) Negative Negative mg/dL [facility] Hyaline casts Auto (Urine sed) [#/Area] Negative Negative /LPF [facility] Interpretation and review of laboratory results Abnormal [facility] Ketones (U) [Mass/Vol] Negative Negat jayne mg/dL [facility] Leukocyte esterase Test strip Ql (U) Negative Negative Devang/uL [facility] Nitrite Ql (U) Negative Negative [facility] pH (U) 6.5 [pH] 5.0 - 8.0 pH [facility] Protein (U) [Mass/Vol] 30 mg/dL Abnormal Negative [facility] RBC LM.HPF (Urine sed) [#/Area] Negative [facility] Specific gravity (U) [Rel density] 1.003 Low 1.005 - 1.030 [facility] Urobilinogen (U) [Mass/Vol] Normal Normal (0-1) mg/dL [facility] WBC LM.HPF (Urine sed) [#/Area] Negative [facility] Vital signson 08-25-2023 Heart rate 68 /min bpm [facility] Basic metabolic 1998 panelon 03-23-2023 Anion gap [Moles/Vol] 11 mmol/L 3 - 13 mmol/L [facility] Calcium [Mass/Vol] 8.6 mg/dL 8.4 - 10. 4 mg/dL [facility] Chloride [Moles/Vol] 98 mmol/L 98 - 10 7 mmol/L [facility] [facility] CO2 [Moles/Vol] 20 mmol/L Low 22 - 30 mmol/L [facility] Creatinine [Mass/Vol] 2.60 mg/dL High 0.52 - 1.04 mg/dL [facility] GFR/1.73 sq M.predicted MDRD (S/P/Bld) [Vol rate/Area] 21.1 mL/min/{1.73_m2} Low - PINF [facility] Comment on above: Calculation based on the Chronic Kidney Disease Epidemiology Collaboration (CKD-EPI) equation refit without adjustment for race Glucose [Mass/Vol] 92 mg/dL 70 - 100 mg/dL [facility] Interpretation and review of laboratory results Abnormal [facility] Potassium [Moles/Vol] 5.2 mmol/L High 3.5 - 5.1 mmol/L [facility] Sodium [Moles/Vol] 128 mmol/L Low 135 - 145 mmol/L [facility] Urea nitrogen [Mass/Vol] 46 mg/dL High 7 - 17 mg/dL [facility] Slightly Hemolyzed. Interpret POTASSIUM with caution. [facility] Laboratory - Chemistry and C hemistry - challengeon 03-22-2023 Glucose [Mass/Vol] 91 mg/dL 70 - 100 mg/dL [facility] No Panel Informationon 03-22 Interpretation and review of laboratory results Normal [facility] Performed by: [facility], [address] [place] [address] CLIA ID: [id number] [facility] Bacteria identified Cx Nom ( U)Ordered By: Bessie Stout on 03-19-2023 Interpretation and review of laboratory results Abnormal [facility] Laboratory - Microbiology an d Antimicrobial susceptibilityOrdered By: Bessie Stout on 03-19-2023 Bacteria identified Cx Nom (U) >100,000 CFU/mL Klebsiella pneumoniae Abnormal [facility] Bacteria identified Cx Nom (U) 50,000-90,000 CFU/mL Streptococcus anginosus (anginosus group) Abnormal [facility] Comment on above: Susceptibility testi ng performed only upon request for cultures with multiple types of microorganisms below 100,000 CFU/ml. No Panel InformationOrdered By: Shania Alexander on 03-19-2023 P [place] 7 degrees [facility] [employer] Work Phone: CA Interval 163 ms [employer] Work Phone: QRS [place] 13 degrees [employer] Work Phone: QRSD Interval 109 ms [employer] Phone: QT Interval 432 ms [employer] Work Phone: QTC Interval 398 ms [employer] Work Phone: T Wave [place] 31 degrees [employer] Phone: [employer] Phone: No Panel Informationon 03-19 Sinus bradycardia Borderline T abnormalities, anterior leads Electronically Signed On 03-19-2023 7:39:33 EDT by Shania Alexander CV Shania Steele MD - 03/19/2023 IMPRESSION: Sinus bradycardia Borderline T abnormalities, anterior leads Electronically Signed On 03-19-2023 7:39:33 EDT by [facility] Vital signsOrdered By: Shania Alexander on 03-19-2023 Heart rate 51 /min bpm [employer] Phone: Basic metabolic 1998 panelon 03-18-2023 Anion gap [Moles/Vol] 3 mmol/L 3 - 13 mmol/L [facility] [employer] Calcium [Mass/Vol] 8.2 mg/dL Low 8.4 - 10. 4 mg/dL [employer] Chloride [Moles/Vol] 108 mmol/L High 98 - 10 7 mmol/L [employer] CO2 [Moles/Vol] 24 mmol/L 22 - 30 mmol/L [employer] Creatinine [Mass/Vol] 2.49 mg/dL High 0.52 - 1.04 mg/dL [employer] GFR/1.73 sq M.predicted MDRD (S/P/Bld) [Vol rate/Area] 22.2 mL/min/{1.73_m2} Low - PINF [employer] Comment on above: Calculation based on the Chronic Kidney Disease Epidemiology Collaboration (CKD-EPI) equation refit without adjustment for race Glucose [Mass/Vol] 79 mg/dL 70 - 100 mg/dL [facility] [employer] Interpretation and review of laboratory results Abnormal [employer] Potassium [Moles/Vol] 5.1 mmol/L 3.5 - 5.1 mmol/L [facility] [employer] Sodium [Moles/Vol] 135 mmol/L 135 - 145 mmol/L [facility] Urea nitrogen [Mass/Vol] 20 mg/dL High 7 - 17 mg/dL [facility] Slightly Hemolyzed. Interpret K+ with caution. [facility] CBC panel Auto (Bld)Ordered By: Theresa Lozano on 03-18-2023 Erythrocyte distribution width (RBC) [Ratio] 14.1 % 11.5 - 14.5 % [facility] Hematocrit (Bld) [Volume fraction] 29.5 % Low 35.0 - 47.0 % [facility] Hemoglobin (Bld) [Mass/Vol] 9.8 g/dL Low 11.7 - 16.0 g/dL [facility] Interpretation and review of laboratory results Abnormal [facility] MCH (RBC) [Entitic mass] 31.8 pg 26.0 - 34.0 pg [facility] MCHC (RBC) [Mass/Vol] 33.3 % 32.0 - 36.0 % [facility] MCV (RBC) [Entitic vol] 95.5 fL 80.0 - 98.0 fL [facility] Platelet mean volume (Bld) [Entitic vol] 8.4 fL 7.4 - 12.4 fL [facility] Platelets (Bld) [#/Vol] 186 10*3/uL 140 - 440 10*3/uL [facility] RBC (Bld) [#/Vol] 3.09 10*6/uL Low 3.8 - 5.20 10*6/uL [facility] WBC (Bld) [#/Vol] 5.0 10*3/uL 3.6 - 10.7 10*3/uL [facility] Laboratory - Chemistry and C hemistry - challengeon 03-18-2023 Ammonia (P) [Moles/Vol] 24 umol/L 9 - 30 umol/L [facility] Laboratory - Drug toxicology on 03-18-2023 lamoTRIgine [Mass/Vol] 13.4 ug/mL 3.0 - 15.0 ug/mL [facility] Comment on above: INTERPRETIVE INFORMA TION: Lamotrigine Therapeutic Range: 3.0-15.0 ug/mL Toxic: Greater than or equal to 20 ug/mL Pharmacokinetics varies widely, particularly with co-medications and/or compromised renal function. Adverse effects may include dizziness, somnolence, nausea and vomiting. Performed By: [address] [place] [id number] Senior Manufacturing Technician: Sarah Sloan MD, PhD CLIA Number: [id number] No Panel Informationon 03-18 [facility] Interpretation and review of laboratory results Normal [facility] Slightly Hemolyzed. Interpret AMMONIA with caution. [facility] Basic metabolic 1998 panelon 03-17-2023 Anion gap [Moles/Vol] 5 mmol/L 3 - 13 mmol/L [facility] Calcium [Mass/Vol] 8.2 mg/dL Low 8.4 - 10. 4 mg/dL [facility] Chloride [Moles/Vol] 107 mmol/L 98 - 10 7 mmol/L [facility] CO2 [Moles/Vol] 24 mmol/L 22 - 30 mmol/L [facility] Creatinine [Mass/Vol] 2.83 mg/dL High 0.52 - 1.04 mg/dL [facility] GFR/1.73 sq M.predicted MDRD (S/P/Bld) [Vol rate/Area] 19.0 mL/min/{1.73_m2} Low - PINF [facility] Comment on above: Calculation based on the Chronic Kidney Disease Epidemiology Collaboration (CKD-EPI) equation refit without adjustment for race Glucose [Mass/Vol] 110 mg/dL High 70 - 100 mg/dL [facility] Interpretation and review of laboratory results Abnormal [facility] Potassium [Moles/Vol] 4.3 mmol/L 3.5 - 5.1 mmol/L [facility] Sodium [Moles/Vol] 137 mmol/L 135 - 145 mmol/L [facility] Urea nitrogen [Mass/Vol] 20 mg/dL High 7 - 17 mg/dL [facility] CBC W Auto Differential pane l (Bld)Ordered By: Saray Fragoso on 03-17-2023 Basophils (Bld) [#/Vol] 0.0 10*3/uL 0.0 - 0.2 10*3/uL [facility] Basophils/100 WBC (Bld) 0.3 % 0.0 - 2.0 % [facility] Eosinophils (Bld) [#/Vol] 0.2 10*3/uL 0.0 - 0.5 10*3/uL [facility] Eosinophils/100 WBC (Bld) 4.2 % 1.0 - 6.0 % [facility] Erythrocyte distribution width (RBC) [Ratio] 14.2 % 11.5 - 14.5 % [facility] Hematocrit (Bld) [Volume fraction] 31.8 % Low 35.0 - 47.0 % [facility] Hemoglobin (Bld) [Mass/Vol] 10.2 g/dL Low 11.7 - 16.0 g/dL [facility] Interpretation and review of laboratory results Abnormal [facility] Lymphocytes (Bld) [#/Vol] 2.0 10*3/uL 1.0 - 4.3 10*3/uL [facility] Lymphocytes/100 WBC (Bld) 33.6 % 20.0 - 40.0 % [facility] MCH (RBC) [Entitic mass] 31.2 pg 26.0 - 34.0 pg [facility] MCHC (RBC) [Mass/Vol] 32.0 % 32.0 - 36.0 % [facility] MCV (RBC) [Entitic vol] 97.4 fL 80.0 - 98.0 fL [facility] Monocytes (Bld) [#/Vol] 0.8 10*3/uL 0.0 - 0.8 10*3/uL [facility] Monocytes/100 WBC (Bld) 13.0 % High 2.0 - 10.0 % [facility] Neutrophils (Bld) [#/Vol] 2.9 10*3/uL 1.8 - 7.0 10*3/uL [facility] Neutrophils/100 WBC (Bld) 48.9 % 40.0 - 80.0 % [facility] Nucleated RBC/100 WBC (Bld) [Ratio] 0.2 % [facility] Platelet mean volume (Bld) [Entitic vol] 7.9 fL 7.4 - 12.4 fL [facility] Platelets (Bld) [#/Vol] 167 10*3/uL 140 - 440 10*3/uL [facility] RBC (Bld) [#/Vol] 3.27 10*6/uL Low 3.8 - 5.20 10*6/uL [facility] WBC (Bld) [#/Vol] 5.9 10*3/uL 3.6 - 10.7 10*3/uL [facility] Free T4 [Mass/Vol]on 023 Free T4 Dialysis [Mass/Vol] 1.74 ng/dL 0.78 - 2.19 ng/dL [facility] Interpretation and review of laboratory results Normal [facility] Laboratory - Chemistry and C hemistry - challengeon 03-17-2023 TSH Qn 0.056 m[IU]/L Low [facility] Laboratory - Drug toxicology on 03-17-2023 Valproate [Mass/Vol] 67 ug/mL 50 - 12 0 ug/mL [facility] No Panel Informationon 03-17 Interpretation and review of laboratory results Normal [facility] TSH Qnon 03-17-2023 Interpretation and review of laboratory results Abnormal [facility] CBC W Auto Differential pane l (Bld)on 03-16-2023 Basophils (Bld) [#/Vol] 0.0 10*3/uL 0.0 - 0.2 10*3/uL [facility] Basophils/100 WBC (Bld) 0.3 % 0.0 - 2.0 % [facility] Eosinophils (Bld) [#/Vol] 0.2 10*3/uL 0.0 - 0.5 10*3/uL [facility] Eosinophils/100 WBC (Bld) 3.7 % 1.0 - 6.0 % [facility] Erythrocyte distribution width (RBC) [Ratio] 13.1 % 11.5 - 14.5 % [facility] Hematocrit (Bld) [Volume fraction] 33.2 % Low 35.0 - 47.0 % [facility] Hemoglobin (Bld) [Mass/Vol] 10.8 g/dL Low 11.7 - 16.0 g/dL [facility] Immature granulocytes (Bld) [#/Vol] 0.0 10*3/uL NINF - 0.0 10*3/uL [facility] Immature granulocytes/100 WBC (Bld) 0.3 % High NINF - 0.0 % [facility] Interpretation and review of laboratory results Abnormal [facility] Lymphocytes (Bld) [#/Vol] 1.9 10*3/uL 1.0 - 4.3 10*3/uL [facility] Lymphocytes/100 WBC (Bld) 31.0 % 20.0 - 40.0 % [facility] MCH (RBC) [Entitic mass] 31.4 pg 26.0 - 34.0 pg [facility] [employer] MCHC (RBC) [Mass/Vol] 32.5 % 32.0 - 36.0 % [facility] [employer] MCV (RBC) [Entitic vol] 96.5 fL 80.0 - 98.0 fL [facility] Monocytes (Bld) [#/Vol] 0.7 10*3/uL 0.0 - 0.8 10*3/uL [facility] Monocytes/100 WBC (Bld) 10.5 % High 2.0 - 10.0 % [facility] Neutrophils (Bld) [#/Vol] 3.4 10*3/uL 1.8 - 7.0 10*3/uL [facility] Neutrophils/100 WBC (Bld) 54.2 % 40.0 - 80.0 % [facility] [employer] Platelet mean volume (Bld) [Entitic vol] 9.4 fL 7.4 - 12.4 fL [facility] [employer] Comment on above: MPV is a calculated measurement using platelet volume ratio Platelets (Bld) [#/Vol] 181 10*3/uL 140 - 440 10*3/uL [facility] [employer] RBC (Bld) [#/Vol] 3.44 10*6/uL Low 3.8 - 5.20 10*6/uL [facility] WBC (Bld) [#/Vol] 6.3 10*3/uL 3.6 - 10.7 10*3/uL [facility] CT Head WO contraston 2022 No acute findings. Report Dictated on Electronically Signed By: Grant Dale MD Electronically Signed Date/Time: 03/16/2023 7:14 PM [facility] 1965 [id number] Exam Date/Time: 03/16/2023 19:09 Procedure: CT HEAD [...] and the mastoid air cells are clear. [facility] RADIOLOGY SYSTEM Grant Dale MD - 03/16/2023 [facility] Name: [facility] : 1965 [id number] Exam Date/Time: 03/16/2023 19:09 Procedure: CT HEAD [...] Electronically Signed Date/Time: 03/16/2023 7:14 PM EDT [facility] Radiology Study observation (narrative) [facility] CT Head WO contrastOrdered B y: Grant Dale on 03-16-2023 [facility] [employer] Work Phone: Comprehensive metabolic 1998 panelon 03-16-2023 Albumin [Mass/Vol] 3.7 g/dL 3.5 - 5.0 g/dL [facility] ALP [Catalytic activity/Vol] 74 U/L 38 - 126 U/L [facility] ALT [Catalytic activity/Vol] 15 U/L 0 - 34 U/L [facility] Anion gap [Moles/Vol] 8 mmol/L 3 - 13 mmol/L [facility] AST [Catalytic activity/Vol] 26 U/L 15 - 46 U/L [facility] Bilirubin [Mass/Vol] 0.3 mg/dL 0.2 - 1 .3 mg/dL [facility] Calcium [Mass/Vol] 8.7 mg/dL 8.4 - 10. 4 mg/dL [facility] Chloride [Moles/Vol] 101 mmol/L 98 - 10 7 mmol/L [facility] CO2 [Moles/Vol] 24 mmol/L 22 - 30 mmol/L [facility] Creatinine [Mass/Vol] 3.07 mg/dL High 0.52 - 1.04 mg/dL [facility] GFR/1.73 sq M.predicted MDRD (S/P/Bld) [Vol rate/Area] 17.2 mL/min/{1.73_m2} Low - PINF [facility] Comment on above: Calculation based on the Chronic Kidney Disease Epidemiology Collaboration (CKD-EPI) equation refit without adjustment for race Glucose [Mass/Vol] 107 mg/dL High 70 - 100 mg/dL [facility] Interpretation and review of laboratory results Abnormal [facility] Potassium [Moles/Vol] 4.7 mmol/L 3.5 - 5.1 mmol/L [facility] Protein [Mass/Vol] 7.2 g/dL 6.3 - 8.2 g/dL [facility] Sodium [Moles/Vol] 134 mmol/L Low 135 - 145 mmol/L [facility] Urea nitrogen [Mass/Vol] 22 mg/dL High 7 - 17 mg/dL [facility] Laboratory - Chemistry and C hemistry - challengeon 03-16-2023 Troponin I.cardiac [Mass/Vol] ng/mL 0.000 - 0.034 ng/mL [facility] Lactate [Moles/Vol] 2.0 mmol/L 0.7 - 2. 0 mmol/L [facility] Laboratory - Drug toxicology on 03-16-2023 Amphetamines Screen method >1000 ng/mL Ql (U) Negative [facility] Barbiturates Screen method >200 ng/mL Ql (U) Negative [facility] Benzodiazepines Ql (U) Negative [facility] Methadone Screen Ql (U) Negative [facility] Opiates Screen Ql (U) Negative [facility] oxyCODONE Ql (U) Negative [facility] Phencyclidine Ql (U) Negative [facility] No Panel Informationon 03-16 Interpretation and review of laboratory results Normal [facility] COCAINE METAB. SCREEN Negative [facility] The expected value f or all [...] needed, request confirmation under separate order. [facility] P [place] -13 degrees [facility] CA Interval 174 ms [facility] QRS [place] -2 degrees [facility] QRSD Interval 103 ms [facility] QT Interval 394 ms [facility] QTC Interval 436 ms [facility] T Wave [place] 47 degrees [facility] Cameron Marquez M D - 03/16/2023 IMPRESSION: Sinus rhythm Rate 74 Abnormal R-wave progression, early transition Probable LVH with secondary repol abnrm Compared to ECG 12/23/2021 08:16:34 No significant changes Electronically Signed On 03-16-2023 18:40:49 EDT by Cameron Marquez [facility] Troponin I.cardiac [Mass/Vol ]on 03-16-2023 Interpretation and review of laboratory results Normal [facility] Patients with high l evels of Biotin oral intake (ie >5 mg/day) may have falsely decreased Troponin levels. [facility] Urinalysis complete panel (U )Ordered By: Mayito Daily on 03-16-2023 Amorphous Urates, Urine Few Abnormal Negative /HPF [facility] Bacteria LM.HPF (Urine sed) [#/Area] Few Abnormal Negative /HPF [facility] Bilirubin Ql (U) Negative Negative mg/dL [facility] Clarity (U) Clear Clear [facility] Color (U) Light Yellow Lt. Yellow [facility] Epithelial cells.squamous LM.HPF (Urine sed) [#/Area] 3-5 [facility] Glucose Ql (U) Normal Normal (<70) mg/dL [facility] Hemoglobin Ql (U) Negative Negative mg/dL [facility] Interpretation and review of laboratory results Abnormal [facility] Ketones (U) [Mass/Vol] Negative Negat jayne mg/dL [facility] Leukocyte esterase Test strip Ql (U) 500 Abnormal Negative Devang/uL [facility] Mucus LM.HPF (Urine sed) [#/Area] Few Negative /LPF [facility] Nitrite Ql (U) Negative Negative [facility] pH (U) 6.0 [pH] 5.0 - 8.0 pH [facility] Protein (U) [Mass/Vol] 100 mg/dL Abnormal Negative [facility] RBC LM.HPF (Urine sed) [#/Area] 0-2 [facility] Specific gravity (U) [Rel density] 1.005 1.005 - 1.030 [facility] Urobilinogen (U) [Mass/Vol] Normal Normal (0-1) mg/dL [facility] Volume, Urine 12 mL [facility] WBC LM.HPF (Urine sed) [#/Area] 6-10 Abnormal [facility] Vital signson 03-16-2023 Heart rate 74 /min bpm [facility] Free T3 [Mass/Vol]on 023 Interpretation and review of laboratory results Normal [facility] Free T4 [Mass/Vol]on 023 Free T4 Dialysis [Mass/Vol] 2.10 ng/dL 0.78 - 2.19 ng/dL [facility] Interpretation and review of laboratory results Normal [facility] T3, freeon 12-23-2022 Free T3 [Mass/Vol] 3.17 pg/mL 2.77 - 5.27 pg/mL [facility] TSHon 12-23-2022 TSH Qn 0.059 m[IU]/L Low [facility] TSH Qnon 12-23-2022 Interpretation and review of laboratory results Abnormal [facility] MG Breast Tomosynthesis Scr Blon 05-11-2022 MG Breast Tomosynthesis Scr Bl Patient Name: JESSY MCKEON Mammography ACCESSION EXAM DATE/TIME PROCEDURE ORDERING PROVIDER [id number] 05/11/2022 15:00 EDT MG Breast Tomosynthesis MD STAN, EDITH BI Scr CPT code 25748 [id number] Reason For Exam (MG Breast Tomosynthesis BI [...] MG breast tomosynthesis bl scr performed at [facility]. October 23, 2018, bilateral MG breast tomosynthesis bl scr performed at [facility]. May 09, 2017, bilateral MG breast tomosynthesis bl scr performed at [facility]. TISSUE DENSITY: BIRADS B - There are scattered fibroglandular densities. . FINDINGS: No suspicious masses, architectural distortions or suspiciously clustered microcalcifications are identified. There is no evidence of skin thickening or nipple retraction. There are no significant changes when compared with prior studies. No mammographic evidence of malignancy. Markings on images: BB's = Nipples; skin lesions Open quechan = Palpable Line = Scar 2D digital mammography and tomosynthesis imaging were performed and reviewed with CAD. ASSESSMENT: Category 1 Negative Mammography Report RECOMMENDATION: Routine screening mammogram of both breasts in 1 year. . Report Dictated on Final Signed Date and Time: 05/11/2022 3:55 pm Signed by: MD CASTELLANOS [facility] Simon Digital Screen Janes [email or web address] 05-11-2022 Patient Name: JESSY WEN Mammography ACCESSION EXAM DATE/TIME PROCEDURE ORDERING PROVIDER [id number] 05/11/2022 15:00 EDT MG Breast Tomosynthesis MD STAN, EDITH BI Scr CPT code [id number] Reason For Exam (MG Breast Tomosynthesis BI [...] MG breast tomosynthesis bl scr performed at [facility]. October 23, 2018, bilateral MG breast tomosynthesis bl scr performed at [facility]. May 09, 2017, bilateral MG breast tomosynthesis bl scr performed at [facility]. TISSUE DENSITY: BIRADS B - There are scattered fibroglandular densities. . FINDINGS: No suspicious masses, architectural distortions or suspiciously clustered microcalcifications are identified. There is no evidence of skin thickening or nipple retraction. There are no significant changes when compared with prior studies. No mammographic evidence of malignancy. Markings on images: BB's = Nipples; skin lesions Open quechan = Palpable Line = Scar 2D digital mammography and tomosynthesis imaging were performed and reviewed with CAD. ASSESSMENT: Category 1 Negative Mammography Report RECOMMENDATION: Routine screening mammogram of both breasts in 1 year. . Report Dictated on --- Final --- Signed Date and Time: 05/11/2022 3:55 pm Signed by: MD RAJ, JUSTYNA [facility] Justyna Castellanos MD - 05/11/2022 Patient Name: JESSY MCKEON Mammography ACCESSION EXAM DATE/TIME PROCEDURE ORDERING PROVIDER [id number] 05/11/2022 15:00 EDT MG Breast Tomosynthesis MD STAN, EDITH BI Scr CPT code [id number] Reason For Exam (MG Breast Tomosynthesis BI [...] [facility], bilateral MG breast tomosynthesis bl scr performed at [facility]. May 09, 2017, bilateral MG breast tomosynthesis bl scr performed at [facility]. TISSUE DENSITY: BIRADS B - There are scattered fibroglandular densities. . FINDINGS: No suspicious masses, architectural distortions or suspiciously clustered microcalcifications are identified. There is no evidence of skin thickening or nipple retraction. There are no significant changes when compared with prior studies. No mammographic evidence of malignancy. Markings on images: BB's = Nipples; skin lesions Open quechan = Palpable Line = Scar 2D digital mammography and tomosynthesis imaging were performed and reviewed with CAD. ASSESSMENT: Category 1 Negative Mammography Report RECOMMENDATION: Routine screening mammogram of both breasts in 1 year. . Report Dictated on --- Final --- Signed Date and Time: 05/11/2022 3:55 pm Signed by: MD RAJ, JUSTYNA [facility] Work Phone: Radiology Study observation (narrative) [facility] Work Phone: [facility] Digital Screen Bila teralOrdered By: Justyna Castellanos on 05-11-2022 [facility] Anti-Nuclear Antibodyon 04-16 CRYSTAL Pattern Fine Speckled Normal [facility] Comment on above: Performed By: #### C MP3 #### [facility] [employer] [facility] [address] [place] [address] #### ESR, RFB #### [facility] [employer] [facility] [address] [place] [address] #### ANA3 #### [facility] [employer] [address] [address] CRYSTAL Titer 1 : 160 Abnormal <1:80 [facility] Comment on above: Result Comment: Test ed by Indirect Immunofluorescence Assay (IFA). Performed By: #### C MP3 #### [facility] [employer] [address] [place] [address] #### ESR, RFB #### [facility] [address] [place] [address] #### ANA3 #### [facility] [address] [place] [address] Rheumatiod Factor, Bloodon 0 05-04-2022 Rheumatoid Factor-Blood < 9 Normal 0-12 [facility] Comment on above: Performed By: #### C MP3 #### [facility] [address] [place] [address] #### ESR, RFB #### [facility] [address] [place] [address] #### ANA3 #### [address] [phone] Sed Rateon 05-04-2022 Sed Rate 9 mm/h Normal 0-20 [facility] Comment on above: Performed By: #### C MP3 #### [facility] [address] [place] [address] #### ESR, RFB #### [facility] [address] [place] [address] #### ANA3 #### [address] [id number] Comp Metabolic Panelon 05-03 ALP [Catalytic activity/Vol] 78 U/L Normal 38-126 [facility] Comment on above: Performed By: #### C MP3 #### [facility] [address] [place] [address] #### ESR, RFB #### [facility] [address] [facility] [address] #### ANA3 #### [address] [address] ALT [Catalytic activity/Vol] 11 U/L Normal 0-34 [facility] Comment on above: Result Comment: The ALT test is performed by an updated assay method. Please note that the reference intervals have been changed and are now sex specific. Performed By: #### C MP3 #### [facility] [address] [place] [address] #### ESR, RFB #### [facility] [address] [place] [address] #### ANA3 #### [facility] [address] [place] [address] AST [Catalytic activity/Vol] 32 U/L Normal 15-46 [facility] Comment on above: Performed By: #### C MP3 #### [facility] [address] [place] [address] #### ESR, RFB #### [facility] [address] [place] [address] #### ANA3 #### [facility] [address] [place] [address] Calcium [Mass/Vol] 8.7 mg/dL Normal 8.4-10.4 [facility] Comment on above: Performed By: #### C MP3 #### [facility] [address] [place] [address] #### ESR, RFB #### [facility] [address] [place] [address] #### ANA3 #### [place] [address] [place] [address] Glucose [Mass/Vol] 126 mg/dL High 70-100 [facility] Comment on above: Performed By: #### C MP3 #### [facility] [address] [place] [address] #### ESR, RFB #### [facility] [address] [place] [address] #### ANA3 #### [place] [address] [place] [address] Urea nitrogen [Mass/Vol] 22 mg/dL High 9-20 [facility] Comment on above: Performed By: #### C MP3 #### [facility] [address] [place] [address] #### ESR, RFB #### [facility] [address] [place] [address] #### ANA3 #### [place] [address] [place] [address] Anion gap [Moles/Vol] 6 mmol/L Normal 3-13 [facility] Comment on above: Performed By: #### C MP3 #### [facility] [address] [place] [address] #### ESR, RFB #### [facility] [address] [place] [address] #### ANA3 #### [facility] [address] [place] [address] Bilirubin [Mass/Vol] 0.4 mg/dL Normal 0.2-1.3 [facility] Comment on above: Performed By: #### C MP3 #### [facility] [address] [place] [address] #### ESR, RFB #### [facility] [address] [place] [address] #### ANA3 #### [address] [address] CO2 [Moles/Vol] 25 mmol/L Normal 22-30 [facility] Comment on above: Performed By: #### C MP3 #### [facility] [address] [place] [address] #### ESR, RFB #### [facility] [address] [place] [address] #### ANA3 #### [address] [address] Creatinine [Mass/Vol] 1.92 mg/dL High 0.52-1.25 [facility] Comment on above: Performed By: #### C MP3 #### [facility] [address] [place] [address] #### ESR, RFB #### [place] [address] [place] [address] #### ANA3 #### [address] [address] GFR/1.73 sq M.predicted among blacks MDRD (S/P/Bld) [Vol rate/Area] 33.3 mL/min/{1.73_m2} Abnormal >60 [facility] Comment on above: Performed By: #### C MP3 #### [facility] [address] [place] [address] #### ESR, RFB #### [facility] [address] [place] [address] #### ANA3 #### [facility] [address] [place], [place] GFR/1.73 sq M.predicted among non-blacks MDRD (S/P/Bld) [Vol rate/Area] 28.8 mL/min/{1.73_m2} Abnormal >60 [facility] Comment on above: Result Comment: KDIG [...] secretion. Performed By: #### C MP3 #### [facility] [address] [place] [address] #### ESR, RFB #### [facility] [address] [place] [address] #### ANA3 #### [address] Protein [Mass/Vol] 6.8 g/dL Normal 6.3-8.2 [facility] Comment on above: Performed By: #### C MP3 #### [facility] [address] [place] [address] #### ESR, RFB #### [facility] [address] [place] [address] #### ANA3 #### [address] Potassium [Moles/Vol] 4.2 mmol/L Normal 3.5-5.1 [facility] Comment on above: Performed By: #### C MP3 #### [facility] [address] [place] [address] #### ESR, RFB #### [facility] [address] [place] [address] #### ANA3 #### [address] Sodium [Moles/Vol] 126 mmol/L Low 135-145 [facility] Comment on above: Performed By: #### C MP3 #### [facility] [address] [place] [address] #### ESR, RFB #### [facility] [address] [place] [address] #### ANA3 #### [address] Albumin [Mass/Vol] 3.7 g/dL Normal 3.5-5.0 [facility] Comment on above: Performed By: #### C MP3 #### [facility] [address] [place] [address] #### ESR, RFB #### [facility] [address] [place] [address] #### ANA3 #### [address] Chloride [Moles/Vol] 95 mmol/L Low 98-107 [facility] Comment on above: Performed By: #### C MP3 #### [facility] [address] [place] [address] #### ESR, RFB #### [facility] [address] [place] [address] #### ANA3 #### [address] [address] Comprehensive Metabolic Pane nestor 05-03-2022 Albumin [Mass/Vol] 3.7 g/dL 3.5 - 5 g/dL [facility] ALP (Bld) [Catalytic activity/Vol] 78 U/L 38 - 126 U/L [facility] ALT [Catalytic activity/Vol] 11 U/L 0 - 34 U/L [facility] Comment on above: The ALT test is [...] - 1.25 mg/dL [facility] EGFR IF NonAfrican Burmese 28.8 mL/min Abnormal 60 - PINF mL/min [...] - 20 mg/dL [facility] Test Performed by [facility], [address] [place], [place] [id number] [place] [address] LAB [facility] Rheumatoid Factoron 05-03-20 22 Rheumatoid Factor <9 0 - 12 [IU]/mL [facility] Test Performed by [facility], [address] LAB [facility] Sedimentation Rateon 022 Sed Rate 9 mm/h 0 - 20 mm/h [facility] Test Performed by [facility], [facility] [address] LAB [facility] EULALIA Bloodon 04-08-2022 Released By: see below Normal [facility] Comment on above: Result Comment: Willy Flores D.O. Performed By: #### C MP3 #### [address] [place] [address] #### ESR, RFB #### [facility] [address] [place] [address] #### ANA3 #### [address] [address] Miscellaneous Referred Testo n 04-08-2022 Result 1: see below [facility] Comment on above: Result Comment: ANCA IFA Pattern None Detected (Ref Interval: None Detected) ANCA IFA Titer <1:20 (Ref Interval: <1:20) Performed By: #### C MP3 #### [address] [place] [address] #### ESR, RFB #### [facility] [address] [place] [address] #### ANA3 #### [address] [address] PLA2R Ab, IgG with Reflexon 04-08-2022 PLA2R, IgG < 1 : 10 Normal <1:10 [facility] Comment on above: Result Comment: Phos pholipase A2 Receptor Antibody, IgG is not detected. No further testing will be performed. Performed By: [address] [place] [address] Senior Manufacturing Technician: Sarah Sloan MD, PhD Performed By: #### C MP3 #### [facility] [address] [place] [address] #### ESR, RFB #### [facility] [address] [place] [address] #### ANA3 #### [address] [address] Serum Protein Electrophoresi son 04-08-2022 Released By: see below Normal [facility] Comment on above: Result Comment: Willy Flores D.O. Performed By: #### C MP3 #### [facility] [address] [place] [address] #### ESR, RFB #### [facility] [address] [place] [address] #### ANA3 #### [address] [address] Anti-Nuclear Antibodyon 03-16 CRYSTAL Pattern Fine Speckled Normal [facility] Comment on above: Performed By: #### C MP3 #### [facility] [address] [place] [address] #### ESR, RFB #### [facility] [address] [place] [address] #### ANA3 #### [address] [address] CRYSTAL Titer 1 : 160 Abnormal <1:80 [facility] Comment on above: Result Comment: Test ed by Indirect Immunofluorescence Assay (IFA). Performed By: #### C MP3 #### [facility] [address] [place] [address] #### ESR, RFB #### [facility] [address] [place] [address] #### ANA3 #### [facility] [address] [place], [place] GBM Ab, IgG by IFAon 022 GBM Ab, IgG by IFA Negative Normal Negative [facility] Comment on above: Result Comment: INTE [...] developed and its performance characteristics determined by [address] [facility]. It has not been cleared or approved by the [place] Food and Drug Administration. This test was performed in a CLIA certified laboratory and is intended for clinical purposes. Performed By: [address] [place] [address] Senior Manufacturing Technician: Sarah Sloan MD, PhD Performed By: #### C MP3 #### [facility] [address] [place] [address] #### ESR, RFB #### [facility] [address] [facility] [address] #### ANA3 #### [address] EULALIA Bloodon 04-07-2022 EULALIA,Blood Normal Pattern Normal [facility] Comment on above: Performed By: #### C MP3 #### [facility] [address] [place] [address] #### ESR, RFB #### [facility] [address] [place] [address] #### ANA3 #### [facility] [address] [place], [place] Reviewed By: see below Normal [facility] Comment on above: Result Comment: Vangie White amB.S., Ph.D. Performed By: #### C MP3 #### [facility] [address] [place] [address] #### ESR, RFB #### [facility] [address] [place] [address] #### ANA3 #### [facility] [address] [place] [address] Serum Protein Electrophoresi son 04-07-2022 Reviewed By: see below Normal [facility] Comment on above: Result Comment: Dmitry White am, Ph.D. Performed By: #### C MP3 #### [facility] [address] [place] [address] #### ESR, RFB #### [facility] [address] [facility] [address] #### ANA3 #### [address] SPE Interpretation See Below Normal [facility] Comment on above: Result Comment: Norm al Pattern. See EULALIA for additional information. Performed By: #### C MP3 #### [facility] [address] [place] [address] #### ESR, RFB #### [facility] [address] [place] [address] #### ANA3 #### [address] Albumin [Mass/Vol] 4.0 g/dL Normal 3.1-5.2 [facility] Comment on above: Performed By: #### C MP3 #### [facility] [address] [place] [address] #### ESR, RFB #### [facility] [address] [place] [address] #### ANA3 #### [facility] [address] [place] [address] Alpha-1 0.3 g/dL Normal 0.2-0.4 [facility] Comment on above: Performed By: #### C MP3 #### [facility] [address] [place] [address] #### ESR, RFB #### [facility] [address] [place] [address] #### ANA3 #### [facility] [address] [facility] [place] [address] Alpha-2 0.6 g/dL Normal 0.5-1.0 [facility] Comment on above: Performed By: #### C MP3 #### [facility] [address] [place] [address] #### ESR, RFB #### [facility] [address] [place] [address] #### ANA3 #### [facility] [address] [facility] [place] [address] Beta 0.7 g/dL Normal 0.6-1.0 [facility] Comment on above: Performed By: #### C MP3 #### [facility] [address] [place] [address] #### ESR, RFB #### [facility] [address] [place] [address] #### ANA3 #### [facility] [address] [facility] [place] [address] Gamma 1.2 g/dL Normal 0.4-1.4 [facility] Comment on above: Performed By: #### C MP3 #### [facility] [address] [place] [address] #### ESR, RFB #### [facility] [address] [place] [address] #### ANA3 #### [facility] [address] [facility] [place] [address] Vit D, 1,25-Dihydroxyon 03-16 Vit D, 1,25-Dihydroxy 41.6 pg/mL Normal 19.9-79.3 [facility] Comment on above: Result Comment: INTE RPRETIVE INFORMATION: Vitamin D, 1,25-Dihydroxy This test is primarily indicated during patient evaluation for hypercalcemia and renal failure. A normal result does not rule out Vitamin D deficiency. The recommended test for diagnosing Vitamin D deficiency is Vitamin D 25-hydroxy. Performed By: [address] [place] [address] Senior Manufacturing Technician: Sarah Sloan MD, PhD Performed By: #### C MP3 #### [facility] [address] [place] [address] #### ESR, RFB #### [facility] [address] [place] [address] #### ANA3 #### [facility] [address] [place] [address] Anti-DNA Antibodyon 04-06-20 22 Anti-DNA Antibody < 1 : 10 Normal <1:10 [facility] Comment on above: Performed By: #### C MP3 #### [facility] [address] [place] [address] #### ESR, RFB #### [facility] [address] [place] [address] #### ANA3 #### [address] Miscellaneous Referred Testo n 04-06-2022 Performed By: see below Normal [facility] Comment on above: Result Comment: [facility] [place] Performed By: #### C MP3 #### [facility] [address] [place] [address] #### ESR, RFB #### [facility] [address] [place] [address] #### ANA3 #### [address] Test Name ANCA IgG by IFA Normal [facility] Comment on above: Performed By: #### C MP3 #### [facility] [address] [place] [address] #### ESR, RFB #### [facility] [address] [place] [address] #### ANA3 #### [facility] [address], [place] Rapid Plasma Reagin (RPR) W Reflex Quanton 04-06-2022 Rapid Plasma Reagin (RPR) Qual Non-Reactive Normal [facility] Comment on above: Result Comment: Non- Reactive Performed By: #### C MP3 #### [facility] [address] [place] [address] #### ESR, RFB #### [facility] [address] [place] [address] #### ANA3 #### [address] [address] C-Reactive Proteinon 022 CRP [Mass/Vol] 7.1 mg/L Normal 0.0-9.9 [facility] Comment on above: Result Comment: . Performed By: #### C MP3 #### [facility] [address] [place] [address] #### ESR, RFB #### [address] [facility] [place] [address] #### ANA3 #### [address] [address] CRP [Mass/Vol] 7.1 mg/L 0 - 9.9 mg/L [facility] Comment on above: . C3 Complementon 04-05-2022 C3 Complement 108 mg/dL 88 - 165 mg/dL [facility] C3, Bloodon 04-05-2022 C3, Blood 108 mg/dL Normal 88-165 [facility] Comment on above: Performed By: #### C MP3 #### [facility] [address] [place] [address] #### ESR, RFB #### [facility] [address] [place] [address] #### ANA3 #### [address] [address] C4 Complementon 04-05-2022 C4 Complement 30 mg/dL 14 - 44 mg/dL [facility] C4, Bloodon 04-05-2022 C4, Blood 30 mg/dL Normal 14-44 [facility] Comment on above: Performed By: #### C MP3 #### [facility] [address] [place] [address] #### ESR, RFB #### [facility] [address] [facility] [address] #### ANA3 #### [address] [address] Creatinine, Random Urineon 0 04-05-2022 Creatinine (U) [Mass/Vol] 13.2 mg/dL No Range [facility] Creatinine, Ur Randomon 03-16 Creatinine, Ur Random 13.2 mg/dL Normal No Range [facility] Comment on above: Performed By: #### C MP3 #### [facility] [address] [place] [address] #### ESR, RFB #### [facility] [address] [place] [address] #### ANA3 #### [address] [address] Folateon 04-05-2022 Folate > 20.0 Normal [facility] Comment on above: Result Comment: >2.8 Performed By: #### C MP3 #### [facility] [address] [place] [address] #### ESR, RFB #### [place] [address] [place] [address] #### ANA3 #### [address] Folate >20.0 ng/mL [facility] Comment on above: >2.8 Hemoglobin AND Hematocriton 04-05-2022 Hematocrit (Bld) [Volume fraction] 34.7 % Low 35.0-47.0 [facility] Comment on above: Performed By: #### C MP3 #### [facility] [address] [place] [address] #### ESR, RFB #### [facility] [address] [place] [address] #### ANA3 #### [address] Hemoglobin (Bld) [Mass/Vol] 11.8 g/dL Normal 11.7-16.0 [facility] Comment on above: Performed By: #### C MP3 #### [facility] [address] [place] [address] #### ESR, RFB #### [facility] [address] [place] [address] #### ANA3 #### [facility] [address] [place] [address] EULALIA Bloodon 04-05-2022 IgA,Blood 187.7 mg/dL Normal 70.0-400.0 [facility] Comment on above: Performed By: #### C MP3 #### [facility] [address] [place] [address] #### ESR, RFB #### [facility] [address] [place] [address] #### ANA3 #### [address] [address] IgG,Blood 1326.8 mg/dL Normal 700.0-1600 .0 [facility] Comment on above: Performed By: #### C MP3 #### [facility] [address] [place] [address] #### ESR, RFB #### [facility] [address] [place] [address] #### ANA3 #### [address] [address] IgM Blood 130.5 mg/dL Normal 40.0-230.0 [facility] Comment on above: Performed By: #### C MP3 #### [facility] [address] [place] [address] #### ESR, RFB #### [facility] [address] [place] [address] #### ANA3 #### [address] [address] No Panel Informationon 04-05 Interpretation and review of laboratory results Abnormal [facility] Test Performed by [facility], [facility] [address] [place], [place] [id number] [place] [address] LAB [facility] Test Performed by [facility], [facility] [address] [place], [place] [id number] [place] [address] LAB [facility] Test Performed by [facility], [address] [facility] Interpretation and review of laboratory results Abnormal [facility] Test Performed by [facility], [address] , [address] [facility] Test Performed by [facility], [address] , [address] [facility] Osmolalityon 04-05-2022 Serum Osmolality 279 mosm/kg Low 280 - 300 mosm/kg [facility] Osmolality, Urineon 04-05-20 22 Osmolality, Ur 114 mosm/kg Low 300 - 1000 mosm/kg [facility] Osmolality,Serumon 2 Osmolality,Serum 279 mosm/kg Low 280-300 [facility] Comment on above: Performed By: #### C MP3 #### [facility] [address] [place] [address] #### ESR, RFB #### [facility] [address] [facility] [address] #### ANA3 #### [address] [address] Osmolality,Urineon 2 Osmolality,Urine 114 mosm/kg Low 300-1000 [facility] Comment on above: Performed By: #### C MP3 #### [facility] [address] [place] [address] #### ESR, RFB #### [facility] [address] [place] [address] #### ANA3 #### [address] [address] PTH, Intacton 04-05-2022 PTH, Intact 88.8 pg/mL High 8.0-54.0 [facility] Comment on above: Performed By: #### C MP3 #### [facility] [address] [place] [address] #### ESR, RFB #### [facility] [address] [place] [address] #### ANA3 #### [address] [address] Interpretation and review of laboratory results Abnormal [facility] P[facility] Intact 88.8 pg/mL High 8 - 54 pg/mL [facility] Test Performed by [facility], [address] [place], [place] [address] [facility] Protein, Ur Randomon 022 Protein, Ur Random 121 mg/dL High No Range [facility] Comment on above: Performed By: #### C MP3 #### [facility] [address] [place] [address] #### ESR, RFB #### [facility] [address] [place] [address] #### ANA3 #### [place] [address] [place] [address] Protein, urine, randomon Protein (U) [Mass/Vol] 121 mg/dL High No Range [facility] Renal Functionon 04-05-2022 Calcium [Mass/Vol] 9.7 mg/dL Normal 8.4-10.4 [facility] Comment on above: Performed By: #### C MP3 #### [facility] [address] [place] [address] #### ESR, RFB #### [place] [address] [place] [address] #### ANA3 #### [place] [address] [place] [address] Phosphate [Mass/Vol] 3.8 mg/dL Normal 2.5-4.5 [facility] Comment on above: Performed By: #### C MP3 #### [facility] [address] [place] [address] #### ESR, RFB #### [place] [address] [place] [address] #### ANA3 #### [address] [place] [address] Anion gap [Moles/Vol] 7 mmol/L Normal 3-13 [facility] Comment on above: Performed By: #### C MP3 #### [facility] [address] [place] [address] #### ESR, RFB #### [facility] [address] [facility] [address] #### ANA3 #### [address] [address] CO2 [Moles/Vol] 27 mmol/L Normal 22-30 [facility] Comment on above: Performed By: #### C MP3 #### [facility] [address] [place] [address] #### ESR, RFB #### [place] [address] [place] [address] #### ANA3 #### [address] [address] Creatinine [Mass/Vol] 2.18 mg/dL High 0.52-1.25 [facility] Comment on above: Performed By: #### C MP3 #### [facility] [address] [place] [address] #### ESR, RFB #### [address] [place] [address] #### ANA3 #### [address] [address] GFR/1.73 sq M.predicted among blacks MDRD (S/P/Bld) [Vol rate/Area] 28.6 mL/min/{1.73_m2} Abnormal >60 [facility] Comment on above: Performed By: #### C MP3 #### [facility] [address] [place] [address] #### ESR, RFB #### [address] [facility] [address] #### ANA3 #### [address] [address] GFR/1.73 sq M.predicted among non-blacks MDRD (S/P/Bld) [Vol rate/Area] 24.7 mL/min/{1.73_m2} Abnormal >60 [facility] Comment on above: Result Comment: KDIG [...] secretion. Performed By: #### C MP3 #### [facility] [address] [place] [address] #### ESR, RFB #### [address] [place] [address] #### ANA3 #### [address] [address] Glucose [Mass/Vol] 93 mg/dL Normal 70-100 [facility] Comment on above: Performed By: #### C MP3 #### [facility] [address] [place] [address] #### ESR, RFB #### [address] [facility] [address] #### ANA3 #### [address] [address] Urea nitrogen [Mass/Vol] 20 mg/dL Normal 9-20 [facility] Comment on above: Performed By: #### C MP3 #### [facility] [address] [place] [address] #### ESR, RFB #### [address] [place] [address] #### ANA3 #### [address] [address] Albumin [Mass/Vol] 4.0 g/dL Normal 3.5-5.0 [facility] Comment on above: Performed By: #### C MP3 #### [address] [place] [address] #### ESR, RFB #### [facility] [address] [place] [address] #### ANA3 #### [address] [address] Chloride [Moles/Vol] 98 mmol/L Normal 98-107 [facility] Comment on above: Performed By: #### C MP3 #### [facility] [address] [place] [address] #### ESR, RFB #### [place] [address] [place] [address] #### ANA3 #### [address] [address] Potassium [Moles/Vol] 4.2 mmol/L Normal 3.5-5.1 [facility] Comment on above: Performed By: #### C MP3 #### [facility] [address] [place] [address] #### ESR, RFB #### [place] [address] [place] [address] #### ANA3 #### [address] [address] Sodium [Moles/Vol] 132 mmol/L Low 135-145 [facility] Comment on above: Performed By: #### C MP3 #### [address] [place] [address] #### ESR, RFB #### [place] [address] [place] [address] #### ANA3 #### [address] [address] Renal Function Panelon 04-05 Anion gap [Moles/Vol] 7 mmol/L 3 - 13 mmol/L [facility] Calcium [Mass/Vol] 9.7 mg/dL 8.4 - 10. 4 mg/dL [facility] CO2 [Moles/Vol] 27 mmol/L 22 - 30 mmol/L [facility] Creatinine [Mass/Vol] 2.18 mg/dL High 0.52 - 1.25 mg/dL [facility] EGFR IF NonAfrican Burmese 24.7 mL/min Abnormal 60 - PINF mL/min [facility] Comment on above: KDIGO guidelines pro [...] 3.8 mg/dL 2.5 - 4 .5 mg/dL [facility] Urea nitrogen (BldV) [Mass/Vol] 20 mg/dL 9 - 20 mg/dL [facility] Retic Count(%)on 04-05-2022 Retic Count(%) 1.4 Normal [facility] Comment on above: Result Comment: Newb orn < 5% Adults 0.5 - 1.5% Performed By: #### C MP3 #### [facility] [address] [place] [address] #### ESR, RFB #### [facility] [address] [place] [address] #### ANA3 #### [facility] [address] [place] [address] Reticulocyteson 04-05-[address] Pct 1.4 [facility] Comment on above: Fletcher < 5% Adults 0.5 - 1.5% Test Performed by [facility], [address] [place], [place] [address] [facility] Sed Rateon 04-05-2022 Sed Rate 9 mm/h Normal 0-20 [facility] Comment on above: Performed By: #### C MP3 #### [facility] [address] [place] [address] #### ESR, RFB #### [facility] [address] [facility] [place] [address] #### ANA3 #### [address] [address] Sedimentation Rateon 022 Sed Rate 9 mm/h 0 - 20 mm/h [facility] Serum Protein Electrophoresi son 04-05-2022 Protein [Mass/Vol] 6.8 g/dL Normal 6.3-8.2 [facility] Comment on above: Performed By: #### C MP3 #### [facility] [address] [place] [address] #### ESR, RFB #### [address] [facility] [place] [address] #### ANA3 #### [address] [address] TSHon 04-05-2022 Interpretation and review of laboratory results Abnormal [facility] TSH Qn 0.036 u[IU]/mL Low 0.465 - 4.68 u[IU]/mL [facility] Test Performed by [facility], [address] [place], [place] [id number] [place] [address] LAB [facility] Thyroid Stim. Hormoneon 03-16 Thyroid Stim. Hormone 0.036 u[IU]/mL Low 0.46 5-4.68 0 [facility] Comment on above: Performed By: #### C MP3 #### [facility] [address] [place] [address] #### ESR, RFB #### [facility] [address] [facility] [place] [address] #### ANA3 #### [address] [address] Uric Acidon 04-05-2022 Urate [Mass/Vol] 5.5 mg/dL Normal 3.5-8.5 [facility] Comment on above: Performed By: #### C MP3 #### [facility] [address] [place] [address] #### ESR, RFB #### [facility] [address] [place] [address] #### ANA3 #### [facility] [address] [place] [address] Urate [Mass/Vol] 5.5 mg/dL 3.5 - 8.5 mg/dL [facility] Vit D 25-OH, Totalon 022 Vit D 25-OH, Total 33 ng/mL Normal 30-100 [facility] Comment on above: Result Comment: Ther apy is based on measurement of Total 25- OHD with the following classification levels: Less than 20 ng/mL: Indicative of Vit D deficiency 20-30 ng/mL: Suggests Vit D insufficiency Optimal: Greater than or equal to 30 ng/mL Test performed by [employer] Competitive Immunoassay, measuring Total Vitamin D, not individual fractions. Performed By: #### C MP3 #### [facility] [address] [place] [address] #### ESR, RFB #### [facility] [address] [place] [address] #### ANA3 #### [facility] [address] [place] [address] Vitamin B12on 04-05-2022 Cobalamin (Vitamin B12) [Mass/Vol] 913 pg/mL Normal 239-931 [facility] Comment on above: Performed By: #### C MP3 #### [facility] [address] [place] [address] #### ESR, RFB #### [facility] [address] [place] [address] #### ANA3 #### [facility] [address] [place] [address] Cobalamin (Vitamin B12) [Mass/Vol] 913 pg/mL 239 - 931 pg/mL [facility] Vitamin D 25 Hydroxyon 04-05 Vit D, 25-Hydroxy 33 ng/mL 30 - 100 ng/mL [facility] Comment on above: Therapy is based on measurement of Total 25-OHD with the following classification levels: Less than 20 ng/mL: Indicative of Vit D deficiency 20-30 ng/mL: Suggests Vit D insufficiency Optimal: Greater than or equal to 30 ng/mL Test performed by [employer] Competitive Immunoassay, measuring Total Vitamin D, not individual fractions. Test Performed by [facility], [address] [place], [place], [place] [id number] [place] [address] LAB [facility] CBC with Auto Differentialon 03-24-2022 Absolute Baso [...] 11.0 g/dL Low 11.7 - 16 g/dL [facility] Interpretation and review of laboratory results Abnormal [...] vol] 8.7 fL 7.4 - 12.4 fL [facility] Comment on above: MPV is a calculated measurement using platelet volume ratio. Platelets (Bld) [#/Vol] 219 10*3/uL 140 - 440 10*3/uL [facility] RBC (Bld) [#/Vol] 3.48 10*6/uL Low 3.8 - 5.2 10*6/uL [facility] WBC (Bld) [#/Vol] 5.9 10*3/uL 3.6 - 10.7 10*3/uL [facility] Test Performed by [facility], [address] , [place], [place] [id number] [place] [address] LAB [facility] Hemogram w/ Autodiffon 03-24 Abs Baso Cnt 0.0 10*3/uL Normal 0.0-0.2 [facility] Comment on above: Performed By: #### C MP3 #### [address] [place] [address] #### ESR, RFB #### [address] [address] #### ANA3 #### [address] [address] Abs Neutrophile Cnt 2.5 10*3/uL Normal 1.8-7.0 [facility] Comment on above: Performed By: #### C MP3 #### [facility] [place] [address] #### ESR, RFB #### [facility] [address] [place] [address] #### ANA3 #### [address] [address] Basophils/100 WBC (Bld) 0.3 % Normal 0.0-2.0 [facility] Comment on above: Performed By: #### C MP3 #### [facility] [address] [place] [address] #### ESR, RFB #### [address] [address] #### ANA3 #### [facility] [address] [place] [address] Eosinophils (Bld) [#/Vol] 0.2 10*3/uL Normal 0.0-0.5 [facility] Comment on above: Performed By: #### C MP3 #### [facility] [address] [place] [address] #### ESR, RFB #### [facility] [address] [place] [address] #### ANA3 #### [address] [address] Eosinophils/100 WBC (Bld) 2.9 % Normal 1.0-6.0 [facility] Comment on above: Performed By: #### C MP3 #### [facility] [address] [place] [address] #### ESR, RFB #### [facility] [address] [place] [address] #### ANA3 #### [address] [address] Erythrocyte distribution width (RBC) [Ratio] 13.0 % Normal 11.5-14.5 [facility] Comment on above: Performed By: #### C MP3 #### [facility] [address] [place] [address] #### ESR, RFB #### [facility] [address] [place] [facility] [address] #### ANA3 #### [address] [address] Granulocytes/100 WBC (Bld) 42.6 % Normal 40.0-80.0 [facility] Comment on above: Performed By: #### C MP3 #### [facility] [address] [place] [address] #### ESR, RFB #### [facility] [address] [place] [facility] [address] #### ANA3 #### [place] [address] [place], [place] Hematocrit (Bld) [Volume fraction] 32.5 % Low 35.0-47.0 [facility] Comment on above: Performed By: #### C MP3 #### [facility] [address] [place] [address] #### ESR, RFB #### [facility] [address] [place] [address] #### ANA3 #### [facility] [address] [place], [place] Hemoglobin (Bld) [Mass/Vol] 11.0 g/dL Low 11.7-16.0 [facility] Comment on above: Performed By: #### C MP3 #### [facility] [address] [place] [address] #### ESR, RFB #### [facility] [address] [place], [place] #### ANA3 #### [address] Lymphocytes (Bld) [#/Vol] 2.6 10*3/uL Normal 1.0-4.3 [facility] Comment on above: Performed By: #### C MP3 #### [facility] [place] [address] #### ESR, RFB #### [facility] [address] [place], [place] #### ANA3 #### [facility] [address] [place], [place] Lymphocytes/100 WBC (Bld) 44.5 % High 20.0-40.0 [facility] Comment on above: Performed By: #### C MP3 #### [facility] [place] [address] #### ESR, RFB #### [facility] [address] [place] [address] #### ANA3 #### [address] MCH (RBC) [Entitic mass] 31.6 pg Normal 26.0-34.0 [facility] Comment on above: Performed By: #### C MP3 #### [facility] [address] [place] [address] #### ESR, RFB #### [facility] [address] [place] [address] #### ANA3 #### [facility] [address] [place] [address] MCHC 33.8 % Normal 32.0-36.0 [facility] Comment on above: Performed By: #### C MP3 #### [facility] [address] [place] [address] #### ESR, RFB #### [facility] [address] [place] [address] #### ANA3 #### [address] [address] MCV (RBC) [Entitic vol] 93.4 fL Normal 79.0-98.0 [facility] Comment on above: Performed By: #### C MP3 #### [facility] [address] [place] [address] #### ESR, RFB #### [facility] [address] [place] [facility] [address] #### ANA3 #### [address] [address] Monocytes (Bld) [#/Vol] 0.6 10*3/uL Normal 0.0-0.8 [facility] Comment on above: Performed By: #### C MP3 #### [facility] [address] [place] [address] #### ESR, RFB #### [facility] [address] [place] [address] #### ANA3 #### [address] [address] Monocytes/100 WBC (Bld) 9.5 % Normal 2.0-10.0 [facility] Comment on above: Performed By: #### C MP3 #### [facility] [address] [place] [address] #### ESR, RFB #### [facility] [address] [place] [address] #### ANA3 #### [facility] [address] [place] [address] Platelet mean volume (Bld) [Entitic vol] 8.7 fL Normal 7.4-12.4 [facility] Comment on above: Result Comment: MPV is a calculated measurement using platelet volume ratio. Performed By: #### C MP3 #### [facility] [address] [place] [address] #### ESR, RFB #### [facility] [address] [place] [address] #### ANA3 #### [address] [address] Platelets (Bld) [#/Vol] 219 10*3/uL Normal 140-440 [facility] Comment on above: Performed By: #### C MP3 #### [facility] [address] [place] [address] #### ESR, RFB #### [facility] [address] [place] [address] #### ANA3 #### [address] [address] RBC (Bld) [#/Vol] 3.48 10*6/uL Low 3.80-5.20 [facility] Comment on above: Performed By: #### C MP3 #### [facility] [address] [place] [address] #### ESR, RFB #### [facility] [address] [place] [address] #### ANA3 #### [facility] [address] [place] [address] WBC (Bld) [#/Vol] 5.9 10*3/uL Normal 3.6-10.7 [facility] Comment on above: Performed By: #### C MP3 #### [facility] [address] [place] [address] #### ESR, RFB #### [facility] [address] [place] [address] #### ANA3 #### [address] [place] [address] Lipid Panelon 03-24-2022 Chol/HDL 4 Normal [facility] Comment on above: Result Comment: Ref Range: < 3 Low Risk for CHD 3-6 Mod Risk for CHD > 6 High Risk for CHD Performed By: #### C MP3 #### [facility] [address] [place] [address] #### ESR, RFB #### [facility] [address] [place] [address] #### ANA3 #### [address] [place] [address] Cholesterol in HDL [Mass/Vol] 53 mg/dL Normal 40-60 [facility] Comment on above: Performed By: #### C MP3 #### [facility] [address] [place] [address] #### ESR, RFB #### [facility] [address] [facility] [address] #### ANA3 #### [address] [place] [address] Low Density Lipoprotein 152 mg/dL Abnormal <100 [facility] Comment on above: Performed By: #### C MP3 #### [facility] [address] [place] [address] #### ESR, RFB #### [facility] [address] [place] [address] #### ANA3 #### [address] [place] [address] Triglyceride [Mass/Vol] 142 mg/dL Normal <150 [facility] Comment on above: Performed By: #### C MP3 #### [facility] [address] [place] [address] #### ESR, RFB #### [facility] [address] [place] [address] #### ANA3 #### [address] [place] [address] Cholesterol [Mass/Vol] 233 mg/dL Abnormal < 200 [facility] Comment on above: Performed By: #### C MP3 #### [facility] [address] [place] [address] #### ESR, RFB #### [facility] [address] [place] [address] #### ANA3 #### [facility] [address] [place] [address] Cholesterol [Mass/Vol] 233 mg/dL Abnormal NINF - [...] and review of laboratory results Abnormal [facility] Triglyceride [Mass/Vol] 142 mg/dL NINF - 150 mg/dL [facility] Test Performed by [facility], [address] , [address] LAB [facility] ECHO Complete 2D W Doppler W Coloron 03-04-2022 TRANSTHORACIC ECHOCARDIOGRAM PATIENT: Jessy Mckeon STUDY DATE: 03/04/2022 : 1965 AGE: 57 HT/WT: 160 cm (63 104.8 kg in) (230.5 lb) GENDER: F BP: 155 / 97 LOCATION: [facility] PATIENT Outpatient [facility] STATUS: *ORDERING PHYSICIAN: * Edith Pierce *READING PHYSICIAN: * Kurt Paris, *BALLISTIC TECHNICIAN: * DO Lemus FSVM, [place] INDICATIONS: New AFib. CONCLUSIONS SUMMARY: [...] 10.1 LV E/e' (more content not included)... [facility] Kurt Paris DO - 03/04/2022 TRANSTHORACIC ECHOCARDIOGRAM PATIENT: Jessy Mckeon STUDY DATE: 03/04/2022 : 1965 AGE: 57 HT/WT: 160 cm (63 104.8 kg in) (230.5 lb) GENDER: F BP: 155 / 97 LOCATION: [facility] PATIENT Outpatient [facility] STATUS: *ORDERING PHYSICIAN: * Edith Pierce *READING PHYSICIAN: * Kurt Paris, *BALLISTIC TECHNICIAN: * DO Lemus FSVM, [place] INDICATIONS: New AFib. CONCLUSIONS SUMMARY: [...] 0.5 m/sec ------ (more content not included)... [facility] Work Phone: ECHO Complete 2D W Doppler W ColorOrdered By: Kurt Paris on 03-04-2022 [facility] Work Phone: Echo Complete w/wo Contrasto n 03-04-2022 Echo Complete w/wo Contrast Patient Name: JESSY MCKEON Ultrasound ACCESSION EXAM DATE/TIME PROCEDURE ORDERING PROVIDER [id number] 03/04/2022 14:34 EDT Echo Complete w/wo MD STAN, EDITH Contrast Reason For Exam (Echo Complete w/wo Contrast) New atrial fibrillation Report TRANSTHORACIC ECHOCARDIOGRAM PATIENT: Jessy Mckeon STUDY DATE: 03/04/2022 : 1965 AGE: 57 HT/WT: 160 cm (63 104.8 kg in) (230.5 lb) GENDER: F BP: 155 / 97 LOCATION: [facility] PATIENT Outpatient [facility] STATUS: *ORDERING PHYSICIAN: * Edith Pierce *READING PHYSICIAN: * Kurt Paris, *BALLISTIC TECHNICIAN: * DO Allan, [facility] Shanique INDICATIONS: New AFib. CONCLUSIONS SUMMARY: 1. [...] Value Reference (more content not included)... [facility] Metabolic Panelon 05-1 Calcium [Mass/Vol] 9.4 mg/dL Normal 8.4-10.4 [facility] [employer] Comment on above: Performed By: #### B MP3 #### [employer] [address] [place] [id number] Glucose [Mass/Vol] 95 mg/dL Normal 70-100 [facility] Comment on above: Performed By: #### B MP3 #### [facility] [address] [place], [place] Anion gap [Moles/Vol] 8 mmol/L Normal 3-13 [facility] Comment on above: Performed By: #### B MP3 #### [facility] [address] [place], [place] CO2 [Moles/Vol] 24 mmol/L Normal 22-30 [facility] Comment on above: Performed By: #### B MP3 #### [facility] [address] [place], [place] Creatinine [Mass/Vol] 1.99 mg/dL High 0.52-1.25 [facility] Comment on above: Performed By: #### B MP3 #### [facility] [address] [place], [place] GFR/1.73 sq M.predicted among blacks MDRD (S/P/Bld) [Vol rate/Area] 32.0 mL/min/{1.73_m2} Abnormal >60 [facility] Comment on above: Performed By: #### B MP3 #### [facility] [address] [place], [place] GFR/1.73 sq M.predicted among non-blacks MDRD (S/P/Bld) [Vol rate/Area] 27.6 mL/min/{1.73_m2} Abnormal >60 [facility] Comment on above: Result Comment: KDIG [...] secretion. Performed By: #### B MP3 #### [facility] [address] [place], [place] Urea nitrogen [Mass/Vol] 25 mg/dL High 9-20 [facility] Comment on above: Performed By: #### B MP3 #### [place] [address] [place], [place] Chloride [Moles/Vol] 101 mmol/L Normal 98-107 [facility] Comment on above: Performed By: #### B MP3 #### [place] [address] [place], [place] Potassium [Moles/Vol] 4.9 mmol/L Normal 3.5-5.1 [facility] Comment on above: Performed By: #### B MP3 #### [place] [address] [place], [place] Sodium [Moles/Vol] 133 mmol/L Low 135-145 [facility] Comment on above: Performed By: #### B MP3 #### [address] Basic Metabolic Panelon 03-0 Calcium [Mass/Vol] 9.0 mg/dL Normal 8.4-10.4 [facility] Comment on above: Performed By: #### C MP3 #### [facility] [address] [place] [address] #### ESR, RFB #### [facility] [address] [place] [address] #### ANA3 #### [place] [address] [place], [place] Glucose [Mass/Vol] 89 mg/dL Normal 70-100 [facility] Comment on above: Performed By: #### C MP3 #### [facility] [address] [place] [address] #### ESR, RFB #### [facility] [address] [place] [address] #### ANA3 #### [facility] [address] [place] [address] Anion gap [Moles/Vol] 3 mmol/L Normal 3-13 [facility] Comment on above: Performed By: #### C MP3 #### [facility] [address] [place] [address] #### ESR, RFB #### [facility] [address] [place] [address] #### ANA3 #### [address] [place] [address] CO2 [Moles/Vol] 29 mmol/L Normal 22-30 [facility] Comment on above: Performed By: #### C MP3 #### [facility] [address] [place] [address] #### ESR, RFB #### [facility] [address] [place] [address] #### ANA3 #### [address] [address] Creatinine [Mass/Vol] 2.52 mg/dL High 0.52-1.25 [facility] Comment on above: Performed By: #### C MP3 #### [facility] [address] [place] [address] #### ESR, RFB #### [facility] [address] [place] [address] #### ANA3 #### [address] [address] GFR/1.73 sq M.predicted among blacks MDRD (S/P/Bld) [Vol rate/Area] 24.1 mL/min/{1.73_m2} Abnormal >60 [facility] Comment on above: Performed By: #### C MP3 #### [facility] [address] [place] [address] #### ESR, RFB #### [facility] [address] [place] [address] #### ANA3 #### [address] [address] GFR/1.73 sq M.predicted among non-blacks MDRD (S/P/Bld) [Vol rate/Area] 20.8 mL/min/{1.73_m2} Abnormal >60 [facility] Comment on above: Result Comment: KDIG [...] secretion. Performed By: #### C MP3 #### [facility] [address] [place] [address] #### ESR, RFB #### [address] [place] [address] #### ANA3 #### [address] [address] Urea nitrogen [Mass/Vol] 28 mg/dL High 9-20 [facility] Comment on above: Performed By: #### C MP3 #### [facility] [address] [place] [address] #### ESR, RFB #### [address] [place] [address] #### ANA3 #### [address] [address] Chloride [Moles/Vol] 101 mmol/L Normal 98-107 [facility] Comment on above: Performed By: #### C MP3 #### [facility] [address] [place] [address] #### ESR, RFB #### [facility] [address] [place] [address] #### ANA3 #### [facility] [address] [place], [place] Potassium [Moles/Vol] 4.7 mmol/L Normal 3.5-5.1 [facility] Comment on above: Performed By: #### C MP3 #### [facility] [address] [place] [address] #### ESR, RFB #### [facility] [address] [place] [address] #### ANA3 #### [address] Sodium [Moles/Vol] 134 mmol/L Low 135-145 [facility] Comment on above: Performed By: #### C MP3 #### [facility] [address] [place] [address] #### ESR, RFB #### [facility] [address] [place] [address] #### ANA3 #### [facility] [address] [place], [place] Anion gap [Moles/Vol] 3 mmol/L 3 - 13 mmol/L [facility] Calcium [Mass/Vol] 9.0 mg/dL 8.4 - 10. 4 mg/dL [facility] Chloride [Moles/Vol] 101 mmol/L 98 - 10 7 mmol/L [facility] CO2 [Moles/Vol] 29 mmol/L 22 - 30 mmol/L [facility] Creatinine [Mass/Vol] 2.52 mg/dL High 0.52 - 1.25 mg/dL [facility] EGFR IF NonAfrican Burmese 20.8 mL/min Abnormal >60 [facility] Comment on above: KDIGO guidelines pro [...] - 20 mg/dL [facility] Test Performed by [facility], [address] , [address] LAB [facility] Free T4on 10-21-2021 Free T4 [Mass/Vol] 1.47 ng/dL Normal 0.78-2.19 [facility] Comment on above: Performed By: #### T SH5, FT4M #### [facility] [address] [place] [address] #### VD25H, T3FE #### [facility] [address] [place] [address] No Panel Informationon 10-21 Test Performed by [facility], [address] LAB [facility] T3, Freeon 10-21-2021 Free T3 [Mass/Vol] 3.36 pg/mL Normal 2.77-5.27 [facility] Comment on above: Result Comment: . Performed By: #### T SH5, FT4M #### [facility] [address] [place] [address] #### VD25H, T3FE #### [facility] [address] [facility] [address] Free T3 [Mass/Vol] 3.36 pg/mL 2.77 - 5.27 pg/mL [facility] Comment on above: . T4, Freeon 10-21-2021 Free T4 [Mass/Vol] 1.47 ng/dL 0.78 - 2.19 ng/dL [facility] Test Performed by [facility], [facility] [address] , [address] LAB [facility] TSHon 10-21-2021 Interpretation and review of laboratory results Abnormal [facility] TSH Qn 0.039 u[IU]/mL Low 0.465 - 4.680 u[IU]/mL [facility] Test Performed by [facility], [address] , [address] LAB [facility] Thyroid Stim. Hormoneon Thyroid Stim. Hormone 0.039 u[IU]/mL Low 0.46 5-4.68 0 [facility] Comment on above: Performed By: #### T SH5, FT4M #### [facility] [address] [place] [address] #### VD25H, T3FE #### [facility] [address] [place] [address] Vit D 25-OH, Totalon 022 Vit D 25-OH, Total 14 ng/mL Low 30-100 [facility] Comment on above: Result Comment: Ther apy is based on measurement of Total 25- OHD with the following classification levels: Less than 20 ng/mL: Indicative of Vit D deficiency 20-30 ng/mL: Suggests Vit D insufficiency Optimal: Greater than or equal to 30 ng/mL Test performed by [employer] Competitive Immunoassay, measuring Total Vitamin D, not individual fractions. Performed By: #### T SH5, FT4M #### [facility] [address] [place] [address] #### VD25H, T3FE #### [facility] [address] [place] [address] Vitamin D 25 Hydroxyon 10-21 Interpretation and review of laboratory results Abnormal [facility] Vit D, 25-Hydroxy 14 ng/mL Low 30 - 100 ng/mL [facility] Comment on above: Therapy is based on measurement of Total 25-OHD with the following classification levels: Less than 20 ng/mL: Indicative of Vit D deficiency 20-30 ng/mL: Suggests Vit D insufficiency Optimal: Greater than or equal to 30 ng/mL Test performed by [employer] Immunoassay, measuring Total Vitamin D, not [...] [#/Vol] 4.1 10*3/uL 3.6 - 10.7 10*3/uL [facility] Test Performed by [facility], [address] , [place], [place] [address] [facility] LAB [facility] Comp Metabolic Panelon 09-07 ALP [Catalytic activity/Vol] 107 U/L Normal 38-126 [facility] Comment on above: Performed By: #### Mayra STILES5, FT4M #### [facility] [address] [place] [address] #### VD25H, T3FE #### [facility] [address] [place] [facility] [address] ALT [Catalytic activity/Vol] 11 U/L Normal 0-34 [facility] Comment on above: Result Comment: The ALT test is performed by an updated assay method. Please note that the reference intervals have been changed and are now sex specific. Performed By: #### Mayra STILES, FT4M #### [facility] [address] [place] [address] #### VD25H, T3FE #### [facility] [address] [facility] [address] Anion gap [Moles/Vol] 2 mmol/L Low 3-13 [facility] Comment on above: Performed By: #### T SH5, FT4M #### [facility] [address] [place] [address] #### VD25H, T3FE #### [facility] [address] [facility] [address] AST [Catalytic activity/Vol] 34 U/L Normal 15-46 [facility] Comment on above: Performed By: #### T SH5, FT4 #### [facility] [address] [place] [address] #### VD25H, T3FE #### [facility] [address] [place] [address] Bilirubin [Mass/Vol] 0.3 mg/dL Normal 0.2-1.3 [facility] Comment on above: Performed By: #### , 4 #### [facility] [address] [place] [address] #### VD25H, T3FE #### [facility] [address] [place] [address] Calcium [Mass/Vol] 8.8 mg/dL Normal 8.4-10.4 [facility] Comment on above: Performed By: #### , 4 #### [facility] [address] [place] [address] #### VD25H, T3FE #### [facility] [address] [place] [address] CO2 [Moles/Vol] 30 mmol/L Normal 22-30 [facility] Comment on above: Performed By: #### 4 #### [facility] [address] [place] [address] #### VD25H, T3FE #### [facility] [address] [place] [address] Glucose [Mass/Vol] 97 mg/dL Normal 70-100 [facility] Comment on above: Performed By: #### , FT4 #### [facility] [address] [place] [address] #### VD25H, T3FE #### [facility] [address] [place] [address] Protein [Mass/Vol] 6.2 g/dL Low 6.3-8.2 [facility] Comment on above: Performed By: #### , FT4 #### [facility] [address] [place] [address] #### VD25H, T3FE #### [facility] [address] [place] [address] Urea nitrogen [Mass/Vol] 31 mg/dL High 9-20 [facility] Comment on above: Performed By: #### T SH5, FT4M #### [facility] [address] [place] [address] #### VD25H, T3FE #### [facility] [address] [place] [address] Creatinine [Mass/Vol] 2.00 mg/dL High 0.52-1.25 [facility] Comment on above: Performed By: #### T SH5, FT4M #### [facility] [address] [place] [address] #### VD25H, T3FE #### [facility] [address] [place] [address] GFR/1.73 sq M.predicted among blacks MDRD (S/P/Bld) [Vol rate/Area] 31.9 mL/min/{1.73_m2} Abnormal >60 [facility] Comment on above: Performed By: #### T SH5, FT4M #### [facility] [address] [place] [address] #### VD25H, T3FE #### [facility] [address] [place] [address] GFR/1.73 sq M.predicted among non-blacks MDRD (S/P/Bld) [Vol rate/Area] 27.5 mL/min/{1.73_m2} Abnormal >60 [facility] Comment on above: Result Comment: KDIG [...] tubular creatinine secretion. Performed By: #### T LINSEY, FT4M #### [facility] [address] [place] [address] #### VD25H, T3FE #### [facility] [address] [place] [address] Albumin [Mass/Vol] 3.4 g/dL Low 3.5-5.0 [facility] Comment on above: Performed By: #### T LINSEY, FT4M #### [facility] [address] [place] [address] #### VD25H, T3FE #### [facility] [address] [place] [address] Chloride [Moles/Vol] 93 mmol/L Low 98-107 [facility] Comment on above: Performed By: #### T , FT4 #### [facility] [address] [place] [address] #### VD25H, T3FE #### [facility] [address] [place] [address] Potassium [Moles/Vol] 5.1 mmol/L Normal 3.5-5.1 [facility] Comment on above: Performed By: #### Mayra , FT4 #### [facility] [address] [place] [address] #### VD25H, T3FE #### [facility] [address] [place] [address] Sodium [Moles/Vol] 124 mmol/L Low 135-145 [facility] Comment on above: Performed By: #### T , FT4M #### [facility] [address] [place] [address] #### VD25H, T3FE #### [facility] [address] [place] [address] Comprehensive Metabolic Pane nestor 09-07-2021 Albumin [Mass/Vol] 3.4 g/dL Low 3.5 - 5.0 g/dL [facility] ALP (Bld) [Catalytic activity/Vol] 107 U/L 38 - 126 U/L [facility] ALT [Catalytic activity/Vol] 11 U/L 0 - 34 U/L [facility] Comment on above: The ALT test is [...] - 1.25 mg/dL [facility] EGFR IF NonAfrican Burmese 27.5 mL/min Abnormal >60 [facility] Comment on [...] (S/P/Bld) [Vol rate/Area] 31.9 mL/min/{1.73_m2} Abnormal >60 [facility] Glucose [Mass/Vol] 97 mg/dL 70 - 100 mg/dL [facility] Potassium [Moles/Vol] 5.1 mmol/L 3.5 - 5.1 mmol/L [facility] Sodium [Moles/Vol] 124 mmol/L Low 135 - 145 mmol/L [facility] Urea nitrogen (BldV) [Mass/Vol] 31 mg/dL High 9 - 20 mg/dL [facility] Hemogram w/ Autodiffon 09-07 Abs Baso Cnt 0.0 10*3/uL Normal 0.0-0.2 [facility] Comment on above: Performed By: #### Mayra STILES, FT4M #### [facility] [address] [place] [address] #### VD25H, T3FE #### [facility] [address] [place] [address] Abs Neutrophile Cnt 1.7 10*3/uL Low 1.8-7.0 [facility] Comment on above: Performed By: #### Mayra STILES, FT4M #### [facility] [address] [place] [address] #### VD25H, T3FE #### [facility] [address] [place] [address] Basophils/100 WBC (Bld) 0.5 % Normal 0.0-2.0 [facility] Comment on above: Performed By: #### T LINSEY, FT4M #### [facility] [address] [place] [address] #### VD25H, T3FE #### [facility] [address] [place] [address] Eosinophils (Bld) [#/Vol] 0.1 10*3/uL Normal 0.0-0.5 [facility] Comment on above: Performed By: #### T SH, FT4M #### [facility] [address] [place] [address] #### VD25H, T3FE #### [facility] [address] [place] [address] Eosinophils/100 WBC (Bld) 3.4 % Normal 1.0-6.0 [facility] Comment on above: Performed By: #### T , FT4 #### [facility] [address] [place] [address] #### VD25H, T3FE #### [facility] [address] [place] [address] Erythrocyte distribution width (RBC) [Ratio] 14.4 % Normal 11.5-14.5 [facility] Comment on above: Performed By: #### T , FT4M #### [facility] [address] [place] [address] #### VD25H, T3FE #### [facility] [address] [place] [address] Granulocytes/100 WBC (Bld) 41.4 % Normal 40.0-80.0 [facility] Comment on above: Performed By: #### , FT4 #### [facility] [address] [place] [address] #### VD25H, T3FE #### [facility] [address] [place] [address] Hematocrit (Bld) [Volume fraction] 34.6 % Low 35.0-47.0 [facility] Comment on above: Performed By: #### T , FT4 #### [facility] [address] [place] [address] #### VD25H, T3FE #### [facility] [address] [place] [address] Hemoglobin (Bld) [Mass/Vol] 11.6 g/dL Low 11.7-16.0 [facility] Comment on above: Performed By: #### T , FT4 #### [facility] [address] [place] [address] #### VD25H, T3FE #### [facility] [address] [place] [address] Lymphocytes (Bld) [#/Vol] 1.8 10*3/uL Normal 1.0-4.3 [facility] Comment on above: Performed By: #### T , FT4M #### [facility] [address] [place] [place] [address] #### VD25H, T3FE #### [facility] [address] [place] [address] Lymphocytes/100 WBC (Bld) 44.4 % High 20.0-40.0 [facility] Comment on above: Performed By: #### T , FT4M #### [facility] [address] [place] [address] #### VD25H, T3FE #### [facility] [address] [place] [address] MCH (RBC) [Entitic mass] 29.8 pg Normal 26.0-34.0 [facility] Comment on above: Performed By: #### T , FT4 #### [facility] [address] [place] [address] #### VD25H, T3FE #### [facility] [address] [place] [address] MCHC 33.5 % Normal 32.0-36.0 [facility] Comment on above: Performed By: #### T , FT4 #### [facility] [address] [place] [address] #### VD25H, T3FE #### [facility] [address] [place] [address] MCV (RBC) [Entitic vol] 88.8 fL Normal 79.0-98.0 [facility] Comment on above: Performed By: #### T , FT4M #### [facility] [address] [place] [place] [address] #### VD25H, T3FE #### [facility] [address] [place] [address] Monocytes (Bld) [#/Vol] 0.4 10*3/uL Normal 0.0-0.8 [facility] Comment on above: Performed By: #### T , FT4M #### [facility] [address] [place] [address] #### VD25H, T3FE #### [facility] [address] [place] [address] Monocytes/100 WBC (Bld) 10.3 % High 2.0-10.0 [facility] Comment on above: Performed By: #### T SH, FT4M #### [facility] [address] [place] [address] #### VD25H, T3FE #### [facility] [address] [place] [address] Platelet mean volume (Bld) [Entitic vol] 6.9 fL Low 7.4-10.4 [facility] Comment on above: Performed By: #### T SH, FT4M #### [facility] [address] [place] [address] #### VD25H, T3FE #### [facility] [address] [place] [address] Platelets (Bld) [#/Vol] 240 10*3/uL Normal 140-440 [facility] Comment on above: Performed By: #### T , FT4 #### [facility] [address] [place] [address] #### VD25H, T3FE #### [facility] [address] [place] [address] RBC (Bld) [#/Vol] 3.90 10*6/uL Normal 3.80-5.20 [facility] Comment on above: Performed By: #### T SH, FT4M #### [facility] [address] [place] [address] #### VD25H, T3FE #### [facility] [address] [place] [address] WBC (Bld) [#/Vol] 4.1 10*3/uL Normal 3.6-10.7 [facility] Comment on above: Performed By: #### T SH, FT4M #### [facility] [address] [place] [address] #### VD25H, T3FE #### [facility] [address] [place] [address] No Panel Informationon 09-07 Interpretation and review of laboratory results Abnormal [facility] Test Performed by [facility], [address] , [place], [place] [address] [facility] TSH without Reflexon 022 TSH Qn m[IU]/L Low 0.465 - 4.680 u[IU]/mL [facility] Thyroid Stim. Hormoneon 08-16 Thyroid Stim. Hormone < 0.015 Low 0.465- 4.68 0 [facility] Comment on above: Performed By: #### T SH5, FT4M #### [facility] [address] [place] [address] #### VD25H, T3FE #### [facility] [address] [place] [address] Vit D, 1,25-Dihydroxyon Vit D, 1,25-Dihydroxy 25.2 pg/mL Normal 19.9-79.3 [facility] Comment on above: Result Comment: INTE RPRETIVE INFORMATION: Vitamin D, 1,25-Dihydroxy This test is primarily indicated during patient evaluation for hypercalcemia and renal failure. A normal result does not rule out Vitamin D deficiency. The recommended test for diagnosing Vitamin D deficiency is Vitamin D 25-hydroxy. Performed By: [address] [place] [address] Senior Manufacturing Technician: Danica Miller MD Performed By: #### T SH5, FT4M #### [facility] [address] [place] [address] #### VD25H, T3FE #### [facility] [address] [place] [address] Cortisolon 07-17-2021 Cortisol 7.0 ug/dL Normal [facility] Comment on above: Result Comment: Befo re 10am 4.5-22.7 ug/dL After 5pm 1.7-14.1 ug/dL Performed By: #### T SH5, FT4M #### [facility] [address] [place] [address] #### VD25H, T3FE #### [facility] [address] [place] [address] Hemoglobin AND Hematocriton 07-17-2021 Hematocrit (Bld) [Volume fraction] 30.9 % Low 35.0-47.0 [facility] Comment on above: Performed By: #### C MP3 #### [facility] [address] [place] [address] #### ESR, RFB #### [facility] [address] [place] [address] #### ANA3 #### [address] [address] Hemoglobin (Bld) [Mass/Vol] 10.4 g/dL Low 11.7-16.0 [facility] Comment on above: Performed By: #### C MP3 #### [facility] [address] [place] [address] #### ESR, RFB #### [facility] [address] [place] [address] #### ANA3 #### [address] [address] Osmolality,Serumon 1 Osmolality,Serum 260 mosm/kg Low 280-300 [facility] Comment on above: Performed By: #### T SH5, FT4M #### [facility] [address] [place] [address] #### VD25H, T3FE #### [facility] [address] [place] [address] PTH, Intacton 07-17-2021 PTH, Intact 112.7 pg/mL High 8.0-54.0 [facility] Comment on above: Performed By: #### T SH5, FT4M #### [facility] [address] [place] [address] #### VD25H, T3FE #### [facility] [address] [place] [address] Renal Functionon 07-17-2021 Calcium [Mass/Vol] 9.0 mg/dL Normal 8.4-10.4 [facility] Comment on above: Performed By: #### T , FT4 #### [facility] [address] [place] [address] #### VD25H, T3FE #### [facility] [address] [place] [address] Phosphate [Mass/Vol] 4.3 mg/dL Normal 2.5-4.5 [facility] Comment on above: Performed By: #### T , FT4M #### [facility] [address] [place] [address] #### VD25H, T3FE #### [facility] [address] [place] [address] Anion gap [Moles/Vol] 4 mmol/L Normal 3-13 [facility] Comment on above: Performed By: #### , FT4 #### [facility] [address] [place] [address] #### VD25H, T3FE #### [facility] [address] [place] [address] CO2 [Moles/Vol] 24 mmol/L Normal 22-30 [facility] Comment on above: Performed By: #### , FT4 #### [facility] [address] [place] [address] #### VD25H, T3FE #### [facility] [address] [place] [address] Creatinine [Mass/Vol] 1.51 mg/dL High 0.52-1.25 [facility] Comment on above: Performed By: #### T , FT4 #### [facility] [address] [place] [address] #### VD25H, T3FE #### [facility] [address] [place] [address] GFR/1.73 sq M.predicted among blacks MDRD (S/P/Bld) [Vol rate/Area] 44.8 mL/min/{1.73_m2} Abnormal >60 [facility] Comment on above: Performed By: #### Mayra STILES, FT4M #### [facility] [address] [place] [address] #### JAQUELIN25H, T3FE #### [facility] [address] [place] [address] GFR/1.73 sq M.predicted among non-blacks MDRD (S/P/Bld) [Vol rate/Area] 38.7 mL/min/{1.73_m2} Abnormal >60 [facility] Comment on above: Result Comment: KDIG [...] renal tubular creatinine secretion. Performed By: #### Mayra STILES, FT4M #### [facility] [address] [place] [address] #### CHAPIN, T3FE #### [facility] [address] [place] [address] Glucose [Mass/Vol] 89 mg/dL Normal 70-100 [facility] Comment on above: Performed By: #### Mayra STILES, FT4M #### [facility] [address] [place] [address] #### VD25H, T3FE #### [facility] [address] [place] [address] Urea nitrogen [Mass/Vol] 25 mg/dL High 9-20 [facility] Comment on above: Performed By: #### Mayra STILES, FT4M #### [facility] [address] [place] [address] #### VD25H, T3FE #### [facility] [address] [place] [address] Albumin [Mass/Vol] 3.5 g/dL Normal 3.5-5.0 [facility] Comment on above: Performed By: #### T SH5, FT4M #### [facility] [address] [place] [address] #### VD25H, T3FE #### [facility] [address] [place] [address] Chloride [Moles/Vol] 94 mmol/L Low 98-107 [facility] Comment on above: Performed By: #### T SH5, FT4M #### [facility] [address] [place] [address] #### VD25H, T3FE #### [place] [address] [place] [address] Potassium [Moles/Vol] 4.4 mmol/L Normal 3.5-5.1 [facility] Comment on above: Performed By: #### T SH5, FT4M #### [facility] [address] [place] [address] #### VD25H, T3FE #### [facility] [address] [place] [address] Sodium [Moles/Vol] 122 mmol/L Low 135-145 [facility] Comment on above: Performed By: #### T SH5, FT4M #### [facility] [address] [place] [address] #### VD25H, T3FE #### [facility] [address] [place] [address] Thyroid Stim. Hormoneon 12-0 Thyroid Stim. Hormone < 0.015 Low 0.465- 4.68 0 [facility] Comment on above: Performed By: #### T SH5, FT4M #### [facility] [address] [place] [address] #### VD25H, T3FE #### [facility] [address] [place] [address] Uric Acidon 07-17-2021 Urate [Mass/Vol] 3.6 mg/dL Normal 3.5-8.5 [facility] Comment on above: Performed By: #### T SH5, FT4M #### [facility] [address] [place] [address] #### VD25H, T3FE #### [facility] [address] [place] [address] Vit D 25-OH, Totalon 021 Vit D 25-OH, Total 20 ng/mL Low 30-100 [facility] Comment on above: Result Comment: Ther apy is based on measurement of Total 25- OHD with the following classification levels: Less than 20 ng/mL: Indicative of Vit D deficiency 20-30 ng/mL: Suggests Vit D insufficiency Optimal: Greater than or equal to 30 ng/mL Test performed by [employer] Competitive Immunoassay, measuring Total Vitamin D, not individual fractions. Performed By: #### T SH5, FT4M #### [facility] [address] [place] [address] #### VD25H, T3FE #### [facility] [address] [place], [place] [address] Creatinine, Random UrineOrde red By: Ewelina Pruett on 01-22-2021 Creatinine (U) [Mass/Vol] 11.8 mg/dL No Range [facility] Work Phone: [phone] FerritinOrdered By: Ewelina nicholas on 01-22-2021 Ferritin [Mass/Vol] 157 ng/mL 8 - 252 ng/mL [facility] Work Phone: [phone] Test Performed by [facility], [address] , [place], [place] [address] [facility] Work Phone: [phone] [facility] Work Phone: [phone] Iron and TIBCOrdered By: Ann Pruett on 01-22-2021 Interpretation and review of laboratory results Abnormal [facility] Work Phone: [phone] Iron [Mass/Vol] 62 ug/dL 37 - 170 ug/dL [facility] Work Phone: [phone] Sat 30 % 15 - 50 % [facility] Work Phone: [phone] TIBC 208 ug/dL Low 261 - 497 ug/dL [facility] Work Phone: Test Performed by [facility], [address] [place] [address] [facility] Work Phone: [phone] [facility] Work Phone: [phone] No Panel InformationOrdered By: Ewelina Pruett on 01-22-2021 Interpretation and review of laboratory results Abnormal [facility] Work Phone: [phone] Test Performed by [facility], [address] [place] [address] [facility] Work Phone: [phone] [facility] Work Phone: [phone] OsmolalityOrdered By: Ewelina Pruett on 01-22-2021 Interpretation and review of laboratory results Abnormal [facility] Work Phone: [phone] Serum Osmolality 279 mosm/kg Low 280 - 300 mosm/kg [facility] Work Phone: [phone] Test Performed by [facility], [address] [place], [place] [address] [facility] Work Phone: [phone] [facility] Work Phone: [phone] Osmolality, UrineOrdered By: Ewelina Pruett on 01-22-2021 Interpretation and review of laboratory results Abnormal [facility] Work Phone: [phone] Osmolality, Ur 120 mosm/kg Low 300 - 1000 mosm/kg [facility] Work Phone: [phone] Test Performed by [facility], [address] [place], [place] [address] [facility] Work Phone: [phone] [facility] Work Phone: [phone] PTH, IntactOrdered By: Ewelina Pruett on 01-22-2021 Interpretation and review of laboratory results Abnormal [facility] Work Phone: [phone] Pth Intact 81.2 pg/mL High 15.0 - 63.0 pg/mL [facility] Work Phone: [phone] Test Performed by [facility], [address] [place], [place] [address] [facility] Work Phone: [phone] [facility] Work Phone: [phone] Protein, urine, randomOrdere d By: Ewelinamer Pruett on 01-22-2021 Protein (U) [Mass/Vol] 56 mg/dL High No Range [facility] Work Phone: [phone] Renal Function PanelOrdered By: Ewelinamer Pruett on 01-22-2021 Albumin [Mass/Vol] 3.9 g/dL 3.5 - 5.0 g/dL [facility] Work Phone: [phone] Anion gap [Moles/Vol] 7 mmol/L 3 - 13 mmol/L [facility] Work Phone: [phone] Calcium [Mass/Vol] 9.7 mg/dL 8.4 - 10. 4 mg/dL [facility] Work Phone: [phone] Chloride [Moles/Vol] 94 mmol/L Low 98 - 10 7 mmol/L [facility] Work Phone: [phone] CO2 [Moles/Vol] 27 mmol/L 22 - 30 mmol/L [facility] Work Phone: [phone] Creatinine [Mass/Vol] 1.67 mg/dL High 0.52 - 1.25 mg/dL [facility] Work Phone: [phone] IF NonAfrican Burmese 34.3 mL/min Abnormal >60 [facility] Work Phone: [phone] Comment on above: KDIGO guidelines pro [...] 39.8 mL/min/{1.73_m2} Abnormal >60 [facility] Work Phone: Glucose [Mass/Vol] 99 mg/dL 70 - 100 mg/dL [facility] Work Phone: Interpretation and review of laboratory results Abnormal [facility] Work Phone: Phosphate [Mass/Vol] 4.3 mg/dL 2.5 - 4 .5 mg/dL [facility] Work Phone: Potassium [Moles/Vol] 5.1 mmol/L 3.5 - 5.1 mmol/L [facility] Work Phone: Sodium [Moles/Vol] 129 mmol/L Low 135 - 145 mmol/L [facility] Work Phone: Urea nitrogen (BldV) [Mass/Vol] 36 mg/dL High 7 - 20 mg/dL [facility] Work Phone: Test Performed by [facility], [address] [place], [place] [address] [facility] Work Phone: [facility] Work Phone: [phone] Sodium, urine, randomOrdered By: Ewelina Pruett on 01-22-2021 Sodium (U) [Moles/Vol] 9 mmol/L Low 30 - 90 mmol/L [facility] Work Phone: Vitamin D 25 HydroxyOrdered By: Ewelina Pruett on 01-22-2021 Vit D, 25-Hydroxy 40 ng/mL 30 - 100 ng/mL [facility] Work Phone: Comment on above: Therapy is based on measurement of Total 25-OHD with the following classification levels: Less than 20 ng/mL: Indicative of Vit D deficiency 20-30 ng/mL: Suggests Vit D insufficiency Optimal: Greater than or equal to 30 ng/mL Test performed by [employer] Competitive Immunoassay, measuring Total Vitamin D, not individual fractions. Test Performed by [facility], [address] [place], [place] [address] [facility] Work Phone: [facility] Work Phone: Creatinine, Random Urineon 1 09-03-2019 Creatinine (U) [Mass/Vol] 7.7 mg/dL No Range [facility] [place] Ferritinon 07-04-2020 Ferritin [Mass/Vol] 140 ng/mL 8 - 252 ng/mL [facility] Test Performed by [facility], [address] , [address] [facility]- [place] Iron and TIBCon 07-04-2020 Interpretation and review of laboratory results Abnormal [facility] [place] Iron [Mass/Vol] 70 ug/dL 37 - 170 ug/dL [facility] [place] Sat 27 % 15 - 50 % [facility] [place] TIBC 260 ug/dL Low 261 - 497 ug/dL [facility] [place] Test Performed by [facility], [address] , [address] [facility] [place] Osmolalityon 07-04-2020 Interpretation and review of laboratory results Abnormal [facility] [place] Serum Osmolality 273 mosm/kg Low 280 - 300 mosm/kg [facility] [place] Test Performed by [facility], [address] [place], [place] [address] [facility] [place] Osmolality, Urineon 07-04-20 Interpretation and review of laboratory results Abnormal [facility] [place] Osmolality (U) [Osmolality] 103 mosm/kg Low 300 - 1000 mosm/kg [facility] [place] Test Performed by [facility], [address] [place], [place] [address] [place], [place] [address]- [place] Otheron 07-04-2020 Interpretation and review of laboratory results Abnormal [facility] [place] Test Performed by [facility], [address] , [place], [place] [id number] [place] [address] [place] PTH, Intacton 07-04-2020 Pth Intact 44.2 pg/mL 15 - 63 pg/mL [facility] [place] Test Performed by [facility], [address] [place], [place] [address] [place], [place] [address]- [place] Protein, urine, randomon Protein (U) [Mass/Vol] 46 mg/dL High No Range [facility] [place] Renal Function Panelon 07-04 Albumin [Mass/Vol] 4.2 g/dL 3.5 - 5 g/dL [place] Anion gap [Moles/Vol] 10 mmol/L [place] Calcium [Mass/Vol] 10.0 mg/dL 8.4 - 10. 4 mg/dL [place] Chloride [Moles/Vol] 95 mmol/L Low 98 - 10 7 mmol/L [place] CO2 [Moles/Vol] 25 mmol/L 22 - 30 mmol/L [place] Creatinine [Mass/Vol] 1.44 mg/dL High 0.52 - 1.25 mg/dL [place] EGFR IF NonAfrican Burmese 41.2 mL/min Abnormal >60 [place] Comment on above: KDIGO guidelines pro [...] (S/P/Bld) [Vol rate/Area] 47.8 mL/min/{1.73_m2} Abnormal >60 [place] Glucose [Mass/Vol] 94 mg/dL 70 - 100 mg/dL [place] Interpretation and review of laboratory results Abnormal [place] Phosphate [Mass/Vol] 4.5 mg/dL 2.5 - 4 .5 mg/dL [place] Potassium [Moles/Vol] 4.3 mmol/L 3.5 - 5.1 mmol/L [facility] Sodium [Moles/Vol] 131 mmol/L Low 135 - 145 mmol/L [facility] [place] Urea nitrogen [Mass/Vol] 22 mg/dL High 7 - 20 mg/dL [facility] Test Performed by [facility], [address] , [address] [place], [place] Sodium, urine, randomon 06-16 Sodium (U) [Moles/Vol] 24 mmol/L Low 30 - 90 mmol/L [facility], [place] Vitamin D 25 Hydroxyon 07-04 Vit D, 25-Hydroxy 33 ng/mL 30 - 100 ng/mL [facility], [place] Comment on above: Therapy is based on measurement of Total 25-OHD with the following classification levels: Less than 20 ng/mL: Indicative of Vit D deficiency 20-30 ng/mL: Suggests Vit D insufficiency Optimal: Greater than or equal to 30 ng/mL Test performed by [employer] Competitive Immunoassay, measuring Total Vitamin D, not individual fractions. Test Performed by [facility], [address] [place], [address], [place] T3on 04-30-2020 T3, Total 130 ng/dL 97 - 169 ng/dL [facility], [place] Test Performed by [facility], [address] [place], [address] [place], [place] T4, Freeon 04-30-2020 Free T4 [Mass/Vol] 2.57 ng/dL High 0.78 - 2.19 ng/dL [facility], [place] Interpretation and review of laboratory results Abnormal [facility], [place] Test Performed by [facility], [address] , [address], [place] TSH without Reflexon 020 Interpretation and review of laboratory results Abnormal [facility], [place] TSH Qn m[IU]/L Low 0.465 - 4.68 u[IU]/mL [facility] [place] [place] Test Performed by [facility], [address] , [address], [place] Creatinine, Random Urineon 0 03-04-2020 Creatinine (U) [Mass/Vol] 15.4 mg/dL No Range [facility] Hemoglobin and Hematocrit, B loodon 03-04-2020 Hematocrit (Bld) [Volume fraction] 33.3 % Low 35 - 47 % [facility] Hemoglobin (Bld) [Mass/Vol] 11.5 g/dL Low 11.7 - 16 g/dL [facility], [place] Interpretation and review of laboratory results Abnormal [facility], [place] Test Performed by [facility], [address] , [place], [place] [address] [facility] [place] Otheron 03-04-2020 Test Performed by [facility], [address] , [place], [place] [address] [facility], [place] PTH, Intacton 03-04-2020 Interpretation and review of laboratory results Abnormal [facility], [place] Pth Intact 76.4 pg/mL High 15 - 63 pg/mL [facility], [place] Test Performed by [facility], [address], [place], [place] [address] [facility], [place] Protein, urine, randomon Interpretation and review of laboratory results Abnormal [facility], [place] Protein (U) [Mass/Vol] 51 mg/dL High No Range [facility] [place] Renal Function Panelon 03-04 Albumin [Mass/Vol] 3.9 g/dL 3.5 - 5 g/dL [facility], [place] Anion gap [Moles/Vol] 10 mmol/L [facility], [place] Calcium [Mass/Vol] 9.4 mg/dL 8.4 - 10. 4 mg/dL [facility], [place] Chloride [Moles/Vol] 99 mmol/L 98 - 10 7 mmol/L [facility], [place] CO2 [Moles/Vol] 23 mmol/L 22 - 30 mmol/L [facility], [place] Creatinine [Mass/Vol] 1.71 mg/dL High 0.52 - 1.25 mg/dL [facility], [place] EGFR IF NonAfrican Burmese 33.6 mL/min Abnormal >60 [facility], [place] Comment on above: KDIGO guidelines pro vide [...] (S/P/Bld) [Vol rate/Area] 38.9 mL/min/{1.73_m2} Abnormal >60 [facility] [place] Glucose [Mass/Vol] 103 mg/dL High 70 - 100 mg/dL [facility] [employer] [place] Interpretation and review of laboratory results Abnormal [facility] Phosphate [Mass/Vol] 3.9 mg/dL 2.5 - 4 .5 mg/dL [facility] [place] Potassium [Moles/Vol] 4.3 mmol/L 3.5 - 5.1 mmol/L [facility] [employer] Sodium [Moles/Vol] 132 mmol/L Low 135 - 145 mmol/L [facility] [employer] [place] Urea nitrogen [Mass/Vol] 15 mg/dL 7 - 20 mg/dL [facility] [employer] [place] Test Performed by [facility], [address] , [place], [place] [address] [facility] T3on 01-16-2020 T3, Total 137 ng/dL 97 - 169 ng/dL [facility] [employer] Test Performed by [facility], [address], [place], [place] [address] [facility] [employer] T4, Freeon 01-16-2020 Free T4 [Mass/Vol] 2.78 ng/dL High 0.78 - 2.19 ng/dL [facility] [employer] [place] Interpretation and review of laboratory results Abnormal [facility] [place] Test Performed by [facility], [address] , [place], [place] [id number] [place] [address] TSH without Reflexon 020 Interpretation and review of laboratory results Abnormal [place] TSH Qn m[IU]/L Low 0.465 - 4.68 u[IU]/mL [place] Test Performed by [facility], [address] , [place], [place] [address] [place] Vitamin D 25 Hydroxyon 01-15 Interpretation and review of laboratory results Abnormal [place] Vit D, 25-Hydroxy 25 ng/mL Low 30 - 100 ng/mL [place] Comment on above: Therapy is based on measurement of Total 25-OHD with the following classification levels: Less than 20 ng/mL: Indicative of Vit D deficiency 20-30 ng/mL: Suggests Vit D insufficiency Optimal: Greater than or equal to 30 ng/mL Test performed by [employer] Immunoassay, measuring Total Vitamin D, not individual fractions. Test Performed by [facility], [address], [place], [place] [address] [place] CBC Auto Differentialon 05- Absolute Baso # 0.0 10*3/uL 0 - 0.2 10*3/uL [place] Absolute Neut # 1.9 10*3/uL 1.8 - 7 10*3/uL [place] Basophils/100 WBC (Bld) 0.4 % 0 - 2 % [place] Eosinophils (Bld) [#/Vol] 0.1 10*3/uL 0 - 0.5 10*3/uL [place] Eosinophils/100 WBC (Bld) 2.7 % 1 - 6 % [place] Erythrocyte distribution width (RBC) [Ratio] 13.6 % 11.5 - 14.5 % [place] Granulocytes/100 WBC (Bld) 41.8 % 40 - 80 % [place] Hematocrit (Bld) [Volume fraction] 31.9 % Low 35 - 47 % [place] Hemoglobin (Bld) [Mass/Vol] 10.9 g/dL Low 11.7 - 16 g/dL [place] Lymphocytes (Bld) [#/Vol] 2.0 10*3/uL 1 - 4.3 10*3/uL [place] Lymphocytes/100 WBC (Bld) 44.9 % High 20 - 40 % [place] MCH (RBC) [Entitic mass] 32.5 pg 26 - 34 pg [place] MCHC (RBC) [Mass/Vol] 34.2 % 32 - 36 % [place] MCV (RBC) [Entitic vol] 95.0 fL 79 - 98 fL [place] Monocytes (Bld) [#/Vol] 0.5 10*3/uL 0 - 0.8 10*3/uL [place] Monocytes/100 WBC (Bld) 10.2 % High 2 - 10 % [place] Platelet mean volume (Bld) [Entitic vol] 8.0 fL 7.4 - 10.4 fL [place] Platelets (Bld) [#/Vol] 300 10*3/uL 140 - 440 10*3/uL [place] RBC (Bld) [#/Vol] 3.36 10*6/uL Low 3.8 - 5.2 10*6/uL [place] WBC (Bld) [#/Vol] 4.4 10*3/uL 3.6 - 10.7 10*3/uL [place] Comprehensive Metabolic Pane nestor 12-31-2019 Albumin [Mass/Vol] 3.8 g/dL 3.5 - 5 g/dL [place] ALP [Catalytic activity/Vol] 70 U/L 38 - 126 U/L [place] ALT [Catalytic activity/Vol] 14 U/L 0 - 34 U/L [place] Comment on above: The ALT test is perf ormed by an updated assay method. Please note that the reference intervals have been changed and are now sex specific. Anion gap [Moles/Vol] 10 mmol/L [place] AST [Catalytic activity/Vol] 20 U/L 15 - 46 U/L [place] Bilirubin Ql (U) 0.2 mg/dL 0.2 - 1.3 mg/dL [place] Calcium [Mass/Vol] 9.9 mg/dL 8.4 - 10. 4 mg/dL [place] Chloride [Moles/Vol] 100 mmol/L 98 - 10 7 mmol/L [place] CO2 [Moles/Vol] 26 mmol/L 22 - 30 mmol/L [place] Creatinine [Mass/Vol] 1.8 mg/dL High 0.52 - 1.25 mg/dL [place] EGFR IF NonAfrican Burmese 31.6 mL/min Abnormal >60 [place] Comment on above: KDIGO guidelines pro [...] (S/P/Bld) [Vol rate/Area] 36.6 mL/min/{1.73_m2} Abnormal >60 [place] Glucose [Mass/Vol] 98 mg/dL 70 - 100 mg/dL [place] Potassium [Moles/Vol] 4.7 mmol/L 3.5 - 5.1 mmol/L [place] Protein [Mass/Vol] 6.7 g/dL 6.3 - 8.2 g/dL [place] Sodium [Moles/Vol] 136 mmol/L 135 - 145 mmol/L [place] Urea nitrogen [Mass/Vol] 23 mg/dL High 7 - 20 mg/dL [facility], [place] Otheron 12-31-2019 Interpretation and review of laboratory results Abnormal [facility] [place], [place] Test Performed by [facility], [address] , [address]- [place], [place] Osmolalityon 10-22-2019 Serum Osmolality 285 mosm/kg 280 - 300 mosm/kg [facility], [place] Osmolality, Urineon 10-22-19 Interpretation and review of laboratory results Abnormal [facility] [place] Osmolality (U) [Osmolality] 125 mosm/kg Low 300 - 1000 mosm/kg [facility] [place] [place] Otheron 10-22-2019 Test Performed by [facility], [address], [place], [place] [id number] [place] [address] [place] Sodium, urine, randomon Sodium (U) [Moles/Vol] 13 mmol/L No Range [facility] [place], [place] Test Performed by [facility], [address] , [address], [place] Ferritinon 10-04-2019 Ferritin [Mass/Vol] 207 ng/mL 8 - 252 ng/mL [facility], [place] Test Performed by [facility], [address] , [address] Hemoglobin and Hematocrit, B loodon 10-04-2019 Hematocrit (Bld) [Volume fraction] 34.2 % Low 35 - 47 % [facility] [place] Hemoglobin (Bld) [Mass/Vol] 11.6 g/dL Low 11.7 - 16 g/dL [facility] [place] Interpretation and review of laboratory results Abnormal [facility], [place] Test Performed by [facility], [address] , [address] Iron and TIBCon 10-04-2019 Interpretation and review of laboratory results Abnormal [facility], [place] Iron [Mass/Vol] 66 ug/dL 37 - 170 ug/dL [facility], [place] Sat 26 % 15 - 50 % [facility], [place] TIBC 256 ug/dL Low 261 - 497 ug/dL [facility] [place] Test Performed by [facility], [address] , [place], [place] [address] [facility] Otheron 10-04-2019 Test Performed by [facility], [address], [place], [place] [address] [facility] [place] PTH, Intacton 10-04-2019 Pth Intact 57.3 pg/mL 15 - 63 pg/mL [facility] [place] Renal Function Panelon 10-04 Albumin [Mass/Vol] 3.9 g/dL 3.5 - 5 g/dL [facility] [place] Anion gap [Moles/Vol] 11 mmol/L [facility] [place] Calcium [Mass/Vol] 9.4 mg/dL 8.4 - 10. 4 mg/dL [facility] [place] [place] Chloride [Moles/Vol] 87 mmol/L Low 98 - 10 7 mmol/L [facility] [place] CO2 [Moles/Vol] 26 mmol/L 22 - 30 mmol/L [facility] [place] [place] Creatinine [Mass/Vol] 1.48 mg/dL High 0.52 - 1.25 mg/dL [facility], [place] EGFR IF NonAfrican Burmese 36.9 mL/min >60 [facility] Comment on above: Source- MDRD equatio n with creatinine calibration to IDMS(NKDEP) eGFR not recommended for drug dose adjustment GFR/1.73 sq M predicted among blacks MDRD (S/P/Bld) [Vol rate/Area] 44.8 mL/min/{1.73_m2} >60 [facility] [place] Glucose [Mass/Vol] 101 mg/dL High 70 - 100 mg/dL [facility] [place] Interpretation and review of laboratory results Abnormal [facility] [place] Phosphate [Mass/Vol] 3.8 mg/dL 2.5 - 4 .5 mg/dL [facility] [place] Potassium [Moles/Vol] 4.0 mmol/L 3.5 - 5.1 mmol/L [facility] [place] Sodium [Moles/Vol] 124 mmol/L Low 135 - 145 mmol/L [facility] [place] Urea nitrogen [Mass/Vol] 19 mg/dL 7 - 20 mg/dL [facility] [place] Test Performed by [facility], [address] , [place], [place] [address] [place], [place] Vitamin D 25 Hydroxyon 10-04 Vit D, 25-Hydroxy 31 ng/mL 30 - 100 ng/mL [place] Comment on above: Therapy is based on measurement of Total 25-OHD with the following classification levels: Less than 20 ng/mL: Indicative of Vit D deficiency 20-30 ng/mL: Suggests Vit D insufficiency Optimal: Greater than or equal to 30 ng/mL Test performed by [employer] Immunoassay, measuring Total Vitamin D, not individual fractions. T3, Totalon 09-06-2019 T3, Total 0.8 ng/mL Normal 0.6-1.8 [facility] Comment on above: Performed By: #### T 3 #### [place] [address] Thyro. Peroxidase Abon 09-06 TPO Ab Qn 33.8 IU/ml Normal 0.0-60.0 [facility] Comment on above: Performed By: #### T PAB #### [address] [address] Thyroglobulin Abon 0 Thyroglobulin Ab Qn [IU]/mL Normal 0.0-60.0 [facility] Comment on above: Performed By: #### T GAB2 #### [address] [address] Total 25-OH Vitamin Don 08-16 Total 25-OH Vitamin D 54.2 ng/mL Normal 30.0-100.[address] [facility] Comment on above: Performed By: #### 2 5VD1 #### [address] [address] Free Thyroxineon 09-05-2019 Free T4 [Mass/Vol] 1.67 ng/dL High 0.76-1.46 [facility] Comment on above: Performed By: #### F T4 #### [address] [address] TSH, 3rd generationon 2019 TSH, 3rd generation 0.012 uIU/mL Low 0.358-3. 74 0 [facility] Comment on above: Performed By: #### T SH3 #### [facility] [address] [place] [address] MRI Lumbar Spine WO Contrast on 07-16-2019 Patient Name: JESSY WEN ---MRI--- Exam Date/Time 07/16/2019 13:48:23 EST Exam MRI Spine Lumbar w/o Contrast Ordering Physician NATHAN TYLER V Accession Number [id number] CPT4 Codes 91753 () Reason For Exam spondylolisthesis of lumbar [...] NELSON Transcribed Date and Time: 07/16/2019 3:23 [facility], [place], [facility] Incoming Radiology Results From [facility] [facility] - 07/16/2019 3:23 PM EST Patient Name: JESSY MCKEON ---MRI--- Exam Date/Time 07/16/2019 13:48:23 EST Exam MRI Spine Lumbar w/o Contrast Ordering Physician NATHAN TYLER V Accession Number [id number] CPT4 Codes 77905 () Reason For Exam spondylolisthesis of lumbar [...] NELSON Transcribed Date and Time: 07/16/2019 3:23 [place], [place] Basic Metabolic Panelon 10-1 Anion gap [Moles/Vol] 11 mmol/L [place] Calcium [Mass/Vol] 10.3 mg/dL 8.4 - 10. 4 mg/dL [place] Chloride [Moles/Vol] 94 mmol/L Low 98 - 10 7 mmol/L [place] CO2 [Moles/Vol] 29 mmol/L 22 - 30 mmol/L [place] Creatinine [Mass/Vol] 1.7 mg/dL High 0.52 - 1.25 mg/dL [place] EGFR IF NonAfrican Burmese 31.5 mL/min >60 [place] Comment on above: Source- MDRD equatio n with creatinine calibration to IDMS(NKDEP) eGFR not recommended for drug dose adjustment GFR/1.73 sq M predicted among blacks MDRD (S/P/Bld) [Vol rate/Area] 38.2 mL/min/{1.73_m2} >60 [place] Glucose [Mass/Vol] 87 mg/dL 70 - 100 mg/dL [place] Interpretation and review of laboratory results Abnormal [place] Potassium [Moles/Vol] 4.8 mmol/L 3.5 - 5.1 mmol/L [place] Sodium [Moles/Vol] 134 mmol/L Low 135 - 145 mmol/L [place] Urea nitrogen [Mass/Vol] 28 mg/dL High 7 - 20 mg/dL [place] Test Performed by [facility], [address] , [place], [place] [id number] [place] [address] CBC Auto Differentialon 05-15 Absolute Baso # 0.0 10*3/uL 0 - 0.2 10*3/uL [place] Absolute Neut # 2.2 10*3/uL 1.8 - 7 10*3/uL [place] Basophils/100 WBC (Bld) 0.4 % 0 - 2 % [place] Eosinophils (Bld) [#/Vol] 0.2 10*3/uL 0 - 0.5 10*3/uL [place] Eosinophils/100 WBC (Bld) 2.8 % 1 - 6 % [place] Erythrocyte distribution width (RBC) [Ratio] 13.5 % 11.5 - 14.5 % [place] Granulocytes/100 WBC (Bld) 38.9 % Low 40 - 80 % [place] Hematocrit (Bld) [Volume fraction] 34.1 % Low 35 - 47 % [place] Hemoglobin (Bld) [Mass/Vol] 11.8 g/dL 11.7 - 16 g/dL [place] Interpretation and review of laboratory results Abnormal [place] Lymphocytes (Bld) [#/Vol] 2.7 10*3/uL 1 - 4.3 10*3/uL [place] Lymphocytes/100 WBC (Bld) 48.1 % High 20 - 40 % [place] MCH (RBC) [Entitic mass] 32.0 pg 26 - 34 pg [place] MCHC (RBC) [Mass/Vol] 34.6 % 32 - 36 % [place] MCV (RBC) [Entitic vol] 92.6 fL 79 - 98 fL [place] Monocytes (Bld) [#/Vol] 0.6 10*3/uL 0 - 0.8 10*3/uL [place] Monocytes/100 WBC (Bld) 9.8 % 2 - 10 % [place] Platelet mean volume (Bld) [Entitic vol] 7.3 fL Low 7.4 - 10.4 fL [place] Platelets (Bld) [#/Vol] 295 10*3/uL 140 - 440 10*3/uL [place] RBC (Bld) [#/Vol] 3.68 10*6/uL Low 3.8 - 5.2 10*6/uL [place] WBC (Bld) [#/Vol] 5.6 10*3/uL 3.6 - 10.7 10*3/uL [place] Test Performed by [facility], [address] , [place], [place] [id number] [place] [address] Renal Function Panelon 03-27 Albumin [Mass/Vol] 3.9 g/dL 3.5 - 5 g/dL [place] Anion gap [Moles/Vol] 11 mmol/L [place] Calcium [Mass/Vol] 10.0 mg/dL 8.4 - 10. 4 mg/dL [place] Chloride [Moles/Vol] 90 mmol/L Low 98 - 10 7 mmol/L [place] CO2 [Moles/Vol] 28 mmol/L 22 - 30 mmol/L [place] Creatinine [Mass/Vol] 1.52 mg/dL High 0.52 - 1.25 mg/dL [place] EGFR IF NonAfrican Burmese 35.9 mL/min >60 [place] Comment on above: Source- MDRD equatio n with creatinine calibration to IDMS(NKDEP) eGFR not recommended for drug dose adjustment GFR/1.73 sq M predicted among blacks MDRD (S/P/Bld) [Vol rate/Area] 43.5 mL/min/{1.73_m2} >60 [place] Glucose [Mass/Vol] 96 mg/dL 70 - 100 mg/dL [place] Interpretation and review of laboratory results Abnormal [place] Phosphate [Mass/Vol] 3.5 mg/dL 2.5 - 4 .5 mg/dL [place] Potassium [Moles/Vol] 4.5 mmol/L 3.5 - 5.1 mmol/L [place] Sodium [Moles/Vol] 130 mmol/L Low 135 - 145 mmol/L [place] Urea nitrogen [Mass/Vol] 17 mg/dL 7 - 20 mg/dL [place] Test Performed by [facility], [facility] [address] , [address] Vital Signs Date Time Vital Sign Value Performing Clinician Raymundo weaver 03-15-2025 08:33-0400 Body temperature 97.81 [degF] Sarah Marina DO Work Phone: [facility] 03-15-2025 08:33-0400 Diastolic blood pressure 73 mm[Hg] Sarah Marina DO Work Phone: [facility] 03-15-2025 08:33-0400 Heart rate 50 /min Sarah Golliher DO Work Phone: [facility] 03-15-2025 08:33-0400 Respiratory rate 16 /min Sarah Golliher DO Work Phone: [facility] 03-15-2025 08:33-0400 SaO2% (BldA) [Mass fraction] 100 % Sarah Golliher DO Work Phone: [facility] 03-15-2025 08:33-0400 Systolic blood pressure 124 mm[Hg] SarahKarisma Kidzliamaysim DO Work Phone: [facility] 03-15-2025 04:53-0400 Body mass index (BMI) [Ratio] 40.74 kg/m2 SarahKarisma Kidzliamaysim DO Work Phone: [facility] 03-15-2025 04:53-0400 Body weight 104.33 kg Atmospheirliamaysim DO Work Phone: [facility] 03-08-2025 12:10-0400 Body height 160 cm Atmospheirliamaysim DO Work Phone: [facility] 03-06-2025 09:44-0400 Diastolic blood pressure 86 mm[Hg] Jorge Roth MD Work Phone: [facility] 03-06-2025 09:44-0400 Heart rate 97 /min Jorge Roth MD Work Phone: [facility] 03-06-2025 09:44-0400 Respiratory rate 16 /min Jorge Roth MD Work Phone: [facility] 03-06-2025 09:44-0400 SaO2% (BldA) [Mass fraction] 99 % Jorge Roth MD Work Phone: [facility] 03-06-2025 09:44-0400 Systolic blood pressure 143 mm[Hg] Jorge Roth MD Work Phone: [facility] 03-06-2025 05:39-0400 Body temperature 98.6 [degF] Jorge Roth MD Work Phone: [facility] 01-15-2025 05:04-0400 Body temperature 97.11 [degF] Pati Duenas MD Work Phone: [facility] 01-15-2025 05:04-0400 Diastolic blood pressure 56 mm[Hg] Pati Duenas MD Work Phone: [facility] 01-15-2025 05:04-0400 Heart rate 74 /min Pati Duenas MD Work Phone: [facility] 01-15-2025 05:04-0400 Respiratory rate 16 /min Pati Duenas MD Work Phone: [facility] 01-15-2025 05:04-0400 SaO2% (BldA) [Mass fraction] 96 % Pati Duenas MD Work Phone: [facility] 01-15-2025 05:04-0400 Systolic blood pressure 112 mm[Hg] Pati Duenas MD Work Phone: [facility] 01-08-2025 12:06-0400 Body mass index (BMI) [Ratio] 45.75 kg/m2 Pati Duenas MD Work Phone: [facility] 01-08-2025 12:06-0400 Body weight 117.12 kg Pati Duenas MD Work Phone: [facility] 12-31-2024 07:08-0400 Body height 160 cm Pati Duenas MD Work Phone: [facility] 12-30-2024 21:22-0400 SaO2% (BldA) [Mass fraction] 99.2 % Pati Duenas MD Work Phone: [facility] 12-29-2024 20:37-0400 Body height 160 cm Pat Prasad DO Work Phone: [facility] 12-29-2024 20:37-0400 Body mass index (BMI) [Ratio] 44.29 kg/m2 Pat Skiffey DO Work Phone: [facility] 12-29-2024 20:37-0400 Body temperature 98.4 [degF] Pat Skiffey DO Work Phone: [facility] 12-29-2024 20:37-0400 Body weight 113.4 kg Pat Skiffey DO Work Phone: [facility] 12-29-2024 20:37-0400 Diastolic blood pressure 71 mm[Hg] Pat Skiffey DO Work Phone: [facility] 12-29-2024 20:37-0400 Heart rate 86 /min Pat Nunezffey DO Work Phone: [facility] 12-29-2024 20:37-0400 Respiratory rate 19 /min Pat Nunezffeyu DO Work Phone: [facility] 12-29-2024 20:37-0400 SaO2% (BldA) [Mass fraction] 100 % Pat Prasad DO Work Phone: [facility] 12-29-2024 20:37-0400 Systolic blood pressure 159 mm[Hg] Pat Nunezffey DO Work Phone: [facility] 12-28-2024 21:45-0400 Body height 160 cm Jess Patton MD Work Phone: [facility] 12-28-2024 21:45-0400 Body mass index (BMI) [Ratio] 42.51 kg/m2 Jess Patton MD Work Phone: [facility] 12-28-2024 21:45-0400 Body weight 108.86 kg Jess Patton MD Work Phone: [facility] 12-28-2024 20:37-0400 Body temperature 97.81 [degF] Jess Patton MD Work Phone: [facility] 12-28-2024 20:37-0400 Diastolic blood pressure 84 mm[Hg] Jess Patton MD Work Phone: [facility] 12-28-2024 20:37-0400 Heart rate 74 /min Jess Patton MD Work Phone: [facility] 12-28-2024 20:37-0400 Respiratory rate 20 /min Jess Patton MD Work Phone: [facility] 12-28-2024 20:37-0400 SaO2% (BldA) [Mass fraction] 97 % Jess Patton MD Work Phone: [facility] 12-28-2024 20:37-0400 Systolic blood pressure 142 mm[Hg] Jess Patton MD Work Phone: [facility] 12-28-2024 07:23-0400 Heart rate 70 /min Arslan Kirkland MD Work Phone: [facility] 12-28-2024 07:23-0400 Respiratory rate 16 /min Arslan Kirkland MD Work Phone: [facility] 12-28-2024 07:23-0400 SaO2% (BldA) [Mass fraction] 99 % Arslan Kirkland MD Work Phone: [facility] 12-28-2024 06:39-0400 Diastolic blood pressure 68 mm[Hg] Arslan Kirkland MD Work Phone: [facility] 12-28-2024 06:39-0400 Systolic blood pressure 129 mm[Hg] Arslan Kirkland MD Work Phone: [facility] 12-28-2024 05:14-0400 Body temperature 98.2 [degF] Arslan Kirkland MD Work Phone: [facility] 12-25-2024 16:07-0400 Diastolic blood pressure 83 mm[Hg] Jess Patton MD Work Phone: [facility] 12-25-2024 16:07-0400 Heart rate 81 /min Jess Patton MD Work Phone: [facility] 12-25-2024 16:07-0400 Respiratory rate 24 /min Jess Patton MD Work Phone: [facility] 12-25-2024 16:07-0400 SaO2% (BldA) [Mass fraction] 100 % Jess Patton MD Work Phone: [facility] 12-25-2024 16:07-0400 Systolic blood pressure 106 mm[Hg] Jess Patton MD Work Phone: [facility] 12-25-2024 10:21-0400 Body height 160 cm Jess Patton MD Work Phone: [facility] 12-25-2024 10:21-0400 Body mass index (BMI) [Ratio] 53.14 kg/m2 Jess Patton MD Work Phone: [facility] 12-25-2024 10:21-0400 Body temperature 97.7 [degF] Jess Patton MD Work Phone: [facility] 12-25-2024 10:21-0400 Body weight 136.08 kg Jess Patton MD Work Phone: [facility] 11-15-2024 10:59-0400 Diastolic blood pressure 70 mm[Hg] Arslan Kirkland MD Work Phone: [facility] 11-15-2024 10:59-0400 Heart rate 70 /min Arslan Kirkland MD Work Phone: [facility] 11-15-2024 10:59-0400 Respiratory rate 16 /min Arslan Kirkland MD Work Phone: [facility] 11-15-2024 10:59-0400 SaO2% (BldA) [Mass fraction] 99 % Arslan Kirkland MD Work Phone: [facility] 11-15-2024 10:59-0400 Systolic blood pressure 125 mm[Hg] Arslan Kirkland MD Work Phone: [facility] 11-15-2024 06:07-0400 Body height 160 cm Arslan Kirkland MD Work Phone: [facility] 11-15-2024 06:07-0400 Body mass index (BMI) [Ratio] 53.14 kg/m2 Arslan Kirkland MD Work Phone: [facility] 11-15-2024 06:07-0400 Body temperature 98.49 [degF] Arslan Kirkland MD Work Phone: [facility] 11-15-2024 06:07-0400 Body weight 136.08 kg Arslan Kirkland MD Work Phone: [facility] 11-03-2024 05:12-0400 Diastolic blood pressure 83 mm[Hg] Mejgon Yoana DO Work Phone: [facility] 11-03-2024 05:12-0400 Heart rate 65 /min Mejgon Yoana DO Work Phone: [facility] 11-03-2024 05:12-0400 Respiratory rate 20 /min Mejgon Yoana DO Work Phone: [facility] 11-03-2024 05:12-0400 SaO2% (BldA) [Mass fraction] 96 % Mejgon Yoana DO Work Phone: [facility] 11-03-2024 05:12-0400 Systolic blood pressure 146 mm[Hg] Mejgon Yoana DO Work Phone: [facility] 11-03-2024 02:13-0400 Body height 160 cm Mejgon Yoana DO Work Phone: [facility] 11-03-2024 02:13-0400 Body mass index (BMI) [Ratio] 53.14 kg/m2 Mejgon Yoana DO Work Phone: [facility] 11-03-2024 02:13-0400 Body temperature 97.2 [degF] Mejgon Yoana DO Work Phone: [facility] 11-03-2024 02:13-0400 Body weight 136.08 kg Mejgon Yoana DO Work Phone: [facility] 09-18-2024 13:24-0500 Body height 165.1 cm Edith Pierce MD Work Phone: [facility] 09-18-2024 13:24-0500 Body mass index (BMI) [Ratio] 45.26 kg/m2 Edith Pierce MD Work Phone: [facility] 09-18-2024 13:24-0500 Body temperature 97 [degF] Edith Pierce MD Work Phone: [facility] 09-18-2024 13:24-0500 Body weight 123.38 kg Edith Pierce MD Work Phone: [facility] 09-18-2024 13:24-0500 Diastolic blood pressure 77 mm[Hg] Edith Pierce MD Work Phone: [facility] 09-18-2024 13:24-0500 Heart rate 67 /min Edith Pierce MD Work Phone: [facility] 09-18-2024 13:24-0500 Systolic blood pressure 126 mm[Hg] Edith Pierce MD Work Phone: [facility] 08-10-2024 10:55-0500 Body temperature 97.3 [degF] Jess Patton MD Work Phone: [facility] 08-10-2024 10:55-0500 Diastolic blood pressure 58 mm[Hg] Jess Patton MD Work Phone: [facility] 08-10-2024 10:55-0500 Heart rate 62 /min Jess Patton MD Work Phone: [facility] 08-10-2024 10:55-0500 Respiratory rate 16 /min Jess Patton MD Work Phone: [facility] 08-10-2024 10:55-0500 SaO2% (BldA) [Mass fraction] 100 % Jess Patton MD Work Phone: [facility] 08-10-2024 10:55-0500 Systolic blood pressure 121 mm[Hg] Jess Patton MD Work Phone: [facility] 08-10-2024 03:59-0500 Body mass index (BMI) [Ratio] 43.84 kg/m2 Jess Pattno MD Work Phone: [facility] 08-10-2024 03:59-0500 Body weight 119.5 kg Jess Patton MD Work Phone: [facility] 08-03-2024 22:31-0500 Body height 165.1 cm Jess Patton MD Work Phone: [facility] 08-01-2024 14:03-0500 Body temperature 98.2 [degF] Edith Pierce MD Work Phone: [facility] 08-01-2024 14:03-0500 Diastolic blood pressure 79 mm[Hg] Edith Pierce MD Work Phone: [facility] 08-01-2024 14:03-0500 Heart rate 72 /min Edith Pierce MD Work Phone: [facility] 08-01-2024 14:03-0500 Respiratory rate 18 /min Edith Pierce MD Work Phone: [facility] 08-01-2024 14:03-0500 SaO2% (BldA) [Mass fraction] 97 % Edith Pierce MD Work Phone: [facility] 08-01-2024 14:03-0500 Systolic blood pressure 133 mm[Hg] Edith Pierce MD Work Phone: [facility] 07-04-2024 07:48-0500 Body temperature 98.2 [degF] Sarah Duran MD Work Phone: [facility] 07-04-2024 07:48-0500 Diastolic blood pressure 72 mm[Hg] Sarah Duran MD Work Phone: [facility] 07-04-2024 07:48-0500 Heart rate 64 /min Sarah Duran MD Work Phone: [facility] 07-04-2024 07:48-0500 Respiratory rate 17 /min Sarah Duran MD Work Phone: [facility] 07-04-2024 07:48-0500 SaO2% (BldA) [Mass fraction] 97 % Sarah Duran MD Work Phone: [facility] 07-04-2024 07:48-0500 Systolic blood pressure 109 mm[Hg] Sarah Duran MD Work Phone: [facility] 06-28-2024 11:22-0500 Body mass index (BMI) [Ratio] 50.41 kg/m2 Sarah Duran MD Work Phone: [facility] 06-28-2024 11:22-0500 Body weight 125.01 kg Sarah Duran MD Work Phone: [facility] 06-14-2024 14:00-0400 Body mass index (BMI) [Ratio] 50.48 kg/m2 Familia Jeronimo MD Work Phone: [facility] 06-14-2024 14:00-0400 Body temperature 98.2 [degF] Familia Jeronimo MD Work Phone: [facility] 06-14-2024 14:00-0400 Body weight 125.19 kg Familia Jeronimo MD Work Phone: [facility] 06-14-2024 14:00-0400 Diastolic blood pressure 85 mm[Hg] Familia Jeronimo MD Work Phone: [facility] 06-14-2024 14:00-0400 Heart rate 78 /min Familia Jeronimo MD Work Phone: [facility] 06-14-2024 14:00-0400 SaO2% (BldA) [Mass fraction] 96 % Familia Jeronimo MD Work Phone: [facility] 06-14-2024 14:00-0400 Systolic blood pressure 135 mm[Hg] Familia Jeronimo MD Work Phone: [facility] 09-04-2023 07:50-0500 Diastolic blood pressure 58 mm[Hg] Lilia Beard MD Work Phone: [facility] 09-04-2023 07:50-0500 Heart rate 67 /min Lilia Beard MD Work Phone: [facility] 09-04-2023 07:50-0500 Respiratory rate 16 /min Lilia Beard MD Work Phone: [facility] 09-04-2023 07:50-0500 SaO2% (BldA) [Mass fraction] 100 % Lilia Beard MD Work Phone: [facility] 09-04-2023 07:50-0500 Systolic blood pressure 148 mm[Hg] Lilia Beard MD Work Phone: [facility] 09-04-2023 03:51-0500 Body mass index (BMI) [Ratio] 44.81 kg/m2 Lilia Beadr MD Work Phone: [facility] 09-04-2023 03:51-0500 Body temperature 98.71 [degF] Lilia Beard MD Work Phone: [facility] 09-04-2023 03:51-0500 Body weight 111.13 kg Lilia Beard MD Work Phone: [facility] 08-26-2023 01:18-0500 Diastolic blood pressure 74 mm[Hg] Theresa Briggs MD Work Phone: [facility] 08-26-2023 01:18-0500 Heart rate 68 /min Theresa Briggs MD Work Phone: [facility] 08-26-2023 01:18-0500 Respiratory rate 1 /min Theresa Briggs MD Work Phone: [facility] 08-26-2023 01:18-0500 SaO2% (BldA) [Mass fraction] 99 % Theresa Briggs MD Work Phone: [facility] 08-26-2023 01:18-0500 Systolic blood pressure 133 mm[Hg] Theresa Briggs MD Work Phone: [facility] 08-25-2023 15:57-0500 Body temperature 98.01 [degF] Theresa Briggs MD Work Phone: [facility] 06-20-2023 16:44-0500 Diastolic blood pressure 100 mm[Hg] Edith Pierce MD Work Phone: [facility] 06-20-2023 16:44-0500 Systolic blood pressure 136 mm[Hg] Edith Pierce MD Work Phone: [facility] 06-20-2023 16:08-0500 Body height 157.5 cm Edith Pierce MD Work Phone: [facility] 06-20-2023 16:08-0500 Body mass index (BMI) [Ratio] 44.81 kg/m2 Edith Pierce MD Work Phone: [facility] 06-20-2023 16:08-0500 Body temperature 97 [degF] Edith Pierce MD Work Phone: [facility] 06-20-2023 16:08-0500 Body weight 111.13 kg Edith Pierce MD Work Phone: [facility] 06-20-2023 16:08-0500 Heart rate 62 /min Edith Pierce MD Work Phone: [facility] 06-20-2023 16:08-0500 SaO2% (BldA) [Mass fraction] 98 % Edith Pierce MD Work Phone: [facility] 03-23-2023 11:50-0400 Body temperature 97.3 [degF] Cameron Marquez MD Work Phone: [facility] 03-23-2023 11:50-0400 Diastolic blood pressure 64 mm[Hg] Cameron Marquez MD Work Phone: [facility] 03-23-2023 11:50-0400 Heart rate 60 /min Cameron Marquez MD Work Phone: [facility] 03-23-2023 11:50-0400 Respiratory rate 18 /min Cameron Marquez MD Work Phone: [facility] 03-23-2023 11:50-0400 SaO2% (BldA) [Mass fraction] 97 % Cameron Marquez MD Work Phone: [facility] 03-23-2023 11:50-0400 Systolic blood pressure 110 mm[Hg] Cameron Marquez MD Work Phone: [facility] 03-22-2023 03:44-0400 Body mass index (BMI) [Ratio] 45.6 kg/m2 Cameron Marquez MD Work Phone: [facility] 03-22-2023 03:44-0400 Body weight 113.08 kg Cameron Marquez MD Work Phone: [facility] 03-16-2023 17:41-0400 Body height 157.5 cm Cameron Marquez MD Work Phone: [facility] 01-06-2022 10:42-0400 Body height 160 cm Shania Cho MD Work Phone: [facility] 01-06-2022 10:42-0400 Body weight 100.15 kg Shania Cho MD Work Phone: [facility] 01-06-2022 10:42-0400 Diastolic blood pressure 61 mm[Hg] Shania Cho MD Work Phone: [facility] 01-06-2022 10:42-0400 Heart rate 58 /min Shania Cho MD Work Phone: [facility] 01-06-2022 10:42-0400 SaO2% (BldA) [Mass fraction] 96 % Shania Cho MD Work Phone: [facility] 01-06-2022 10:42-0400 Systolic blood pressure 115 mm[Hg] Shania Cho MD Work Phone: [facility] Encounters Encounter Date Encounter Type Care Provider Facility Start: 05-28-2025 End: 06-05-2025 Telephone encounter Pete Mahan MD Work Phone: [facility] Comment on above: Cancelled Appointmen t Start: 03-25-2025 End: 03-28-2025 Telephone encounter Fran Bowers MD Work Phone: [facility] Clinical Communication Comment on above: Appointment Request (Hospital follow up) Start: 03-20-2025 ambulatory Mary REDDY Facil ity:[facility] Start: 03-06-2025 End: 03-15-2025 Evaluation and management of inpatient Sarah Basilio Marina DO Work Phone: [facility] Cardiac Progressive Care Unit PCU 5W Comment on above: Hyponatremia (Primar y Dx); Weakness; Impaired mobility and ADLs Start: 03-06-2025 End: 03-06-2025 Emergency department patient visit oJrge Roth MD Work Phone: [facility] Comment on above: Fall, initial encoun ter (Primary Dx); Contusion of left elbow, initial encounter; Contusion of left knee, initial encounter Start: 02-25-2025 ambulatory Mary REDDY Facil ity:[facility] Start: 02-25-2025 Registered Referred Mary camargo [facility] - [address] Start: 02-18-2025 ambulatory Mary REDDY Facil ity:[facility] Start: 02-18-2025 Registered Referred Mary Jackson ltiraare [place] - [address] Start: 2025 End: 2025 ambulatory Mary REDDY -[facility] - [address] Start: 2025 End: 2025 Departed Referred Mary Van -[facility] [place] - [address] Start: 2025 End: 2025 ambulatory Mary REDDY Facility:[facility] Start: 02-08-2025 ambulatory Mary REDDY Facil ity:[facility] Start: 02-08-2025 Registered Referred Mary Matos[place] - [address] Start: 02-04-2025 ambulatory Mary REDDY Facil ity:[facility] Start: 02-04-2025 Registered Referred Mary camargo [place] - [address] Start: 01-28-2025 ambulatory Mary REDDY Facil ity:[facility] Start: 01-28-2025 Registered Referred Mary camargo [place] - [address] Start: 01-21-2025 ambulatory Mary Van [facility] Facil ity:[facility] Start: 01-21-2025 Registered Referred Mary camargo [place] - [address] Start: 01-17-2025 ambulatory Mary REDDY Facil ity:[facility] Start: 01-17-2025 Registered Referred Mary camargo [place] - [address] Start: 12-30-2024 End: 01-15-2025 ambulatory [facility] Start: 12-30-2024 End: 01-15-2025 Evaluation and management of inpatient Pati Duenas MD Work Phone: [facility] Respiratory Unit 7W Comment on above: Pressure injury of l eft thigh, stage 3 (HCC) (Primary Dx); Fall, initial encounter; Acute pain of left knee; Chronic bilateral low back pain with bilateral sciatica Start: 12-29-2024 End: 12-29-2024 Emergency department patient visit Chioma Brinda COLLADO Work Phone: [facility] Comment on above: Other chronic pain ( Primary Dx) Start: 12-28-2024 End: 12-29-2024 Emergency department patient visit Jess Patton MD Work Phone: [facility] Comment on above: Acute pain of left k nee (Primary Dx) Start: 12-28-2024 End: 01-01-2025 Telephone encounter Edith Pierce MD Work Phone: [facility] [place] Comment on above: Home Visit Start: 12-28-2024 End: 12-28-2024 Emergency department patient visit Arslan Kirkland MD Work Phone: [facility] Comment on above: Nondisplaced fractur e of shaft of fifth metacarpal bone, left hand, initial encounter for closed fracture (Primary Dx) Start: 12-25-2024 End: 12-26-2024 Telephone encounter Edith Pierce MD Work Phone: [facility] [place] Comment on above: Other (FYI- Pat de[facility]) Start: 12-25-2024 End: 12-25-2024 Emergency department patient visit Jess Patton MD Work Phone: [facility] Comment on above: Candidal intertrigo (Primary Dx); Acute cystitis with hematuria; Difficulty demonstrating health literacy; Medication side effects present, subsequent encounter Start: 12-12-2024 End: 12-12-2024 Telephone encounter Edith Pierce MD Work Phone: [facility] [place] Comment on above: Other ([facility]) Start: 11-15-2024 End: 11-15-2024 Emergency department patient visit Arslan Kirkland MD Work Phone: [facility] ED Comment on above: Weakness (Primary Dx ); Head injury, initial encounter; Fall, initial encounter; Hypervolemia, unspecified hypervolemia type; Chronic kidney disease, unspecified CKD stage; Anemia due to chronic kidney disease, unspecified CKD stage; Medication side effect; Hyponatremia Start: 11-09-2024 End: 12-13-2024 Telephone encounter Edith Pierce MD Work Phone: [facility] [employer] [facility] Start: 11-07-2024 End: 11-08-2024 Telephone encounter Edith Pierce MD Work Phone: [facility] [place] Comment on above: Orders Start: 11-03-2024 End: 11-03-2024 Emergency department patient visit Javad Lees DO Work Phone: [facility] ED Comment on above: Urinary retention (P rimary Dx); Fall, initial encounter; Pain of right hip Start: 10-08-2024 End: 10-17-2024 Telephone encounter [facility] Start: 10-02-2024 End: 10-06-2024 ambulatory BILL HERBERT [facility] Start: 09-18-2024 End: 09-18-2024 [facility] Start: 09-18-2024 End: 09-18-2024 Office outpatient visit 25 minutes Edith Pierce MD Work [facility] Comment on above: Psychogenic polydips ia (Primary Dx); Anemia in stage 4 chronic kidney disease (HCC) (HCC); Chronic schizoaffective disorder (HCC); Morbid obesity with BMI of 45.0-49.9, adult (HCC); HTN (hypertension), benign; Mixed hyperlipidemia; Acquired hypothyroidism; Screening mammogram for breast cancer; Vision abnormalities Start: 08-23-2024 End: 09-03-2024 Telephone encounter Edith Pierce MD Work Phone: [facility] Comment on above: Appointment Start: 08-03-2024 End: 08-03-2024 Subsequent hospital visit by physician [facility] Us Exam Room 2 [facility] US Comment on above: Arrived Start: 08-03-2024 End: 08-03-2024 [facility] Start: 08-03-2024 End: 08-03-2024 Subsequent hospital visit by physician [facility] Xr Portable [facility] Radiology Comment on above: Arrived Start: 08-03-2024 End: 08-03-2024 [facility] Start: 08-03-2024 End: 08-10-2024 Evaluation and management of inpatient Jess Patton MD Work Phone: [facility] Cardiac Progressive Care Unit PCU 5W Comment on above: Hypervolemia, unspec ified hypervolemia type (Primary Dx); Peripheral edema; Failure to thrive in adult; Chronic kidney disease, unspecified CKD stage; Anemia, unspecified type; Chronic schizoaffective disorder (HCC) Start: 08-01-2024 End: 08-01-2024 Emergency department patient visit EDITH PIERCE [facility] ED Comment on above: Contusion of right a nkle, initial encounter (Primary Dx) Start: 06-28-2024 End: 06-28-2024 Subsequent hospital visit by physician [facility] Xr Portable [facility] Radiology Comment on above: Arrived Start: 06-28-2024 End: 06-28-2024 [facility] Start: 06-28-2024 End: 07-04-2024 Evaluation and management of inpatient Sarah Duran MD Work Phone: [facility] Medical Surgical Unit MSU 1E Comment on above: Acute cystitis witho ut hematuria (Primary Dx); Altered mental status, unspecified altered mental status type; Hyponatremia; Morbid obesity with BMI of 45.0-49.9, adult (HCC) Start: 06-18-2024 End: 06-19-2024 [facility] Start: 06-14-2024 End: 06-14-2024 ambulatory [facility] Start: 06-14-2024 End: 06-14-2024 Office outpatient new 30 minutes Familia Jeronimo MD Work Phone: [facility] Comment on above: Anemia in stage 4 ch ronic kidney disease (HCC) (HCC) (Primary Dx) Start: 05-11-2024 End: 05-30-2024 Telephone encounter Nick Green MD Work Phone: [facility] Start: 04-24-2024 End: 04-24-2024 Telephone encounter Nick Green MD Work Phone: [facility] Start: 04-17-2024 End: 07-17-2024 Transcribe Orders Madan Wagner MD Work Phone: [facility] Comment on above: Hyperparathyroidism, unspecified (HCC) (Primary Dx); Vitamin D deficiency, unspecified; Iron deficiency; Chronic kidney disease, unspecified; Nephrogenic diabetes insipidus (HCC); Proteinuria, unspecified Start: 03-15-2024 End: 03-16-2024 Telephone encounter Fran Bowers MD Work Phone: [facility] Clinical Communication Comment on above: Appointment Request Start: 03-08-2024 End: 03-08-2024 Refill Edith Pierce MD Work Phone: [facility] Start: 02-02-2024 End: 02-02-2024 Telephone encounter Brian Hwang CNP Work Phone: [facility] Comment on above: Reschedule 02/28/24 Start: 11-30-2023 Refill Shania hernandez MD Work Phone: [facility] Comment on above: Refill Request (Levo thyroxine) Start: 11-21-2023 Refill Edith guardado MD Work Phone: [facility] Start: 11-10-2023 Refill Edith guardado MD Work Phone: [facility] Start: 09-16-2023 Refill Edith guardado MD Work Phone: [facility] Start: 09-06-2023 Refill Edith guardado MD Work Phone: [facility] Start: 09-04-2023 End: 09-04-2023 Subsequent hospital visit by physician [facility] Xr Portable [facility] Radiology Comment on above: Arrived Start: 09-04-2023 End: 09-04-2023 Emergency department patient visit Lilia Beard MD Work Phone: [facility] ED Comment on above: Shortness of breath (Primary Dx) Start: 08-25-2023 End: 08-26-2023 Emergency department patient visit Theresa Briggs MD Work Phone: [facility] EMERGENCY DEPT Comment on above: Transient alteration of awareness (Primary Dx) Start: 06-28-2023 End: 06-28-2023 Subsequent hospital visit by physician Nick Green MD Work Phone: [facility] Comment on above: Stage 3b chronic kid monique disease (HCC) Start: 06-22-2023 End: 06-22-2023 Office outpatient visit 25 minutes Nick Green MD Work Phone: [facility] Comment on above: Stage 3b chronic kid monique disease (HCC) (Primary Dx); Urge incontinence of urine Start: 06-20-2023 End: 06-20-2023 Office outpatient visit 25 minutes Edith Pierce MD Work Phone: [facility] Comment on above: HTN (hypertension), benign (Primary Dx); Chronic renal disease, stage IV (HCC); Chronic kidney disease, stage 3b (HCC); Morbid obesity with BMI of 45.0-49.9, adult (HCC); Screening mammogram for breast cancer; Hyponatremia Start: 06-14-2023 Telephone encounter Edith schafer MD Work Phone: [facility] Comment on above: Med Refill Start: 06-07-2023 Telephone encounter Edith schafer MD Work Phone: [facility] Comment on above: Forms/questionnaires (/) Start: 05-10-2023 Refill Edith guardado MD Work Phone: [facility] Comment on above: Chronic schizoaffect jayne disorder (HCC) Start: 04-21-2023 Refill Edith guardado MD Work Phone: [facility] Comment on above: Chronic schizoaffect jayne disorder (HCC) Start: 03-16-2023 End: 03-16-2023 Subsequent hospital visit by physician [facility] Ct Exam Room 1 [facility] CT Comment on above: Arrived Start: 03-16-2023 End: 03-23-2023 Evaluation and management of inpatient Cameron Marquez MD Work Phone: [facility] 5W TELEMETRY Comment on above: Urinary tract infect ion without hematuria, site unspecified (Primary Dx); Renal insufficiency; Altered mental status, unspecified altered mental status type; Chronic schizoaffective disorder (HCC) Start: 03-16-2023 ambulatory Bessie Hudson RN [facility] Clinical Communication Start: 03-16-2023 Patient encounter procedure Bessie Hudson RN [facility] Clinical Communication Start: 02-24-2023 Telephone encounter Aster dickinson STOPPERER ASSEMBLER - RIVET HOLE MACHINE OPERATOR Work Phone: [facility] Comment on above: Other (Medical suppl y question) Start: 02-23-2023 End: 02-23-2023 Office outpatient visit 15 minutes Aster Sparks STOPPERER ASSEMBLER - RIVET HOLE MACHINE OPERATOR Work Phone: [facility] Comment on above: Urge incontinence of urine (Primary Dx); Urinary retention; Incontinence of feces, unspecified fecal incontinence type Start: 02-08-2023 Telephone encounter Frankojohanny Carlos Santos STOPPERER ASSEMBLER - EXTENSION SERVICE ADVISOR Work Phone: [facility] Start: 12-23-2022 End: 12-23-2022 ambulatory Shania Cho Work Phone: [facility] Laboratory Comment on above: Arrived Hypothyroidism, unsp ecified (Primary Dx) Start: 12-08-2022 Refill Edith guardado MD Work Phone: [facility] Start: 12-01-2022 Refill Shania hernandez MD Work Phone: [facility] Comment on above: Refill Request (levo thyroxine); Refill Request Start: 11-19-2022 Refill Shania hernandez MD Work Phone: [facility] Comment on above: Refill Request Start: 11-02-2022 Refill Shania hernandez MD Work Phone: [facility] Comment on above: Refill Request (Levo thyroxine) Start: 09-12-2022 Refill Shania hernandez MD Work Phone: [facility] Comment on above: Refill Request (levo thyroxine) Start: 09-09-2022 Refill Edith guardado MD Work Phone: [facility] Start: 09-06-2022 Telephone encounter Shania Cho MD Work Phone: [facility] Comment on above: Appointment Start: 08-15-2022 Refill Shania hernandez MD Work Phone: [facility] Comment on above: Refill Request (Synt hroid) Start: 07-27-2022 Telephone encounter Shania Cho MD Work Phone: [facility] Comment on above: Orders Start: 05-11-2022 [facility] Start: 05-11-2022 End: 05-11-2022 Subsequent hospital visit by physician Edith Pierce MD Work Phone: [facility] Comment on above: Arrived Start: 05-03-2022 [facility] Start: 05-03-2022 End: 05-03-2022 Subsequent hospital visit by physician Edith Pierce MD Work Phone: [facility] Comment on above: Essential hypertensi on; Arthralgia, unspecified joint Start: 04-05-2022 ambulatory UNKNOWN PROVIDER [facility] Start: 04-05-2022 End: 04-05-2022 Subsequent hospital visit by physician Perfecto Hollins MD Work Phone: [facility] Start: 03-24-2022 [facility] Start: 03-24-2022 End: 03-24-2022 Subsequent hospital visit by physician Edith Pierce MD Work Phone: [facility] Comment on above: Essential hypertensi on Start: 03-04-2022 [facility] Start: 03-04-2022 End: 03-04-2022 Subsequent hospital visit by physician Edith Pierce MD Work Phone: [facility] Start: 01-06-2022 End: 01-06-2022 Patient encounter procedure Shania Cho MD Work Phone: [facility] Comment on above: Hypothyroidism, unsp ecified type (Primary Dx); Vitamin D deficiency Start: 12-29-2021 Refill Shania hernandez MD Work Phone: [facility] Comment on above: Refill Request (Levo thyroxine ) Start: 10-21-2021 ambulatory UNKNOWN PROVIDER [facility] Start: 10-21-2021 End: 10-21-2021 Subsequent hospital visit by physician Fran Bowers MD Work Phone: [facility] Comment on above: Hyponatremia with de creased serum osmolality Start: 09-07-2021 [facility] Start: 09-07-2021 End: 09-07-2021 Subsequent hospital visit by physician Fran Bowers MD Work Phone: [facility] Comment on above: Encounter for long-t erm (current) use of high-risk medication Start: 07-17-2021 [facility] Start: 01-22-2021 End: 01-22-2021 Subsequent hospital visit by physician Ewelina Pruett MD Work Phone: [facility] Start: 01-13-2021 End: 01-13-2021 Subsequent hospital visit by physician Adrián Buckner STOPPERER ASSEMBLER - EXTENSION SERVICE ADVISOR Work Phone: [facility] Start: 07-04-2020 End: 07-04-2020 Subsequent hospital visit by physician Ewelina Pruett Work Phone: [facility] Start: 06-03-2020 End: 06-03-2020 Subsequent hospital visit by physician Edith Pierce Work Phone: [facility] Comment on above: Arrived Start: 04-30-2020 End: 04-30-2020 Subsequent hospital visit by physician Shaila Garcia Work Phone: [facility] Start: 03-04-2020 End: 03-04-2020 Subsequent hospital visit by physician Ewelina Pruett Work Phone: [facility] Start: 01-16-2020 End: 01-16-2020 Subsequent hospital visit by physician Edith Pierce [facility] Start: 12-31-2019 End: 12-31-2019 Subsequent hospital visit by physician Edith Pierce Work Phone: [facility] Comment on above: Essential hypertensi on; Acquired hypothyroidism Start: 10-22-2019 End: 10-22-2019 Subsequent hospital visit by physician Ewelina Pruett Work Phone: [facility] Start: 10-04-2019 End: 10-04-2019 Subsequent hospital visit by physician Ewelina Pruett Work Phone: [facility] Laboratory Start: 07-16-2019 End: 07-16-2019 Subsequent hospital visit by physician Nathan Tyler Work Phone: [facility] [place] [facility] Comment on above: Arrived Start: 05-30-2019 End: 05-30-2019 Subsequent hospital visit by physician Fran Bowers Work Phone: [facility] Laboratory Comment on above: Encounter for long-t erm (current) use of high-risk medication Start: 05-07-2019 End: 05-07-2019 Subsequent hospital visit by physician Zehra Aguilera Work Phone: [facility] Start: 05-02-2019 End: 05-02-2019 Subsequent hospital visit by physician Zehra Aguilera Work Phone: [facility] Start: 04-30-2019 End: 04-30-2019 Subsequent hospital visit by physician Zehra Aguilera Work Phone: [facility] Start: 04-26-2019 End: 04-26-2019 Subsequent hospital visit by physician Zehra Aguilera Work Phone: [facility] Start: 03-27-2019 End: 03-27-2019 Subsequent hospital visit by physician Ewelina Pruett Work Phone: [facility] Start: 06-16-2018 Patient encounter procedure Fran Bowers [facility] Start: 03-28-2018 Patient encounter procedure Ivan Chacon [facility] Start: 02-12-2018 [facility] Start: 10-06-2017 Evaluation and manag ement of inpatient [facility] Procedures Date Procedure Procedure Detail Performing Clinician Start: 03-15-2025 Renal function panel Emi Miller MD Work Phone: Start: 03-14-2025 Renal function panel Emi Miller MD Work Phone: Start: 03-13-2025 Renal function panel Emi Miller MD Work Phone: Start: 03-12-2025 Renal function panel Emi Miller MD Work Phone: Start: 03-11-2025 Immunofixj electroph oresis serum Madan Wagner MD Work Phone: Start: 03-11-2025 K/L QNT FREE LIGHT C HAINS WITH RATIO (BKR QUEST) Madan Wagner MD Work Phone: Start: 03-11-2025 Renal function panel Da benton Wagner MD Work Phone: Start: 03-10-2025 Renal function panel Da benton Wagner MD Work Phone: Start: 03-09-2025 Basic metabolic pane l calcium total Tunde Tucker MD Work Phone: Start: 03-09-2025 Lipid panel Madan ramos MD Work Phone: Start: 03-09-2025 Lipid 1996 panel - S daniel or Plasma Sarah Marina DO Work Phone: Start: 03-08-2025 End: 03-08-2025 Assay of osmolality blood Madan hughes MD Work Phone: Start: 03-08-2025 Basic metabolic pane l calcium total Clara Wyatt DO Work Phone: Start: 03-08-2025 Thyrotropin [Units/v olume] in Serum or Plasma Sarah Marina DO Work Phone: Start: 03-07-2025 Basic metabolic pane l calcium total Paul Anderson DO Work Phone: Start: 03-07-2025 Urnls dip stick/tabl et reagent auto microscopy Raymon [facility] Work Phone: Start: 03-06-2025 Comprehensive metabo lic panel Raymonlaura [facility] Work Phone: Start: 03-06-2025 Ecg routine ecg w/le ast 12 lds trcg only w/o i&r Raymon [facility] Work Phone: Start: 03-06-2025 Radiologic exam ches t single view Raymon [facility] Work Phone: Start: 03-06-2025 End: 03-06-2025 Radex [...] metabolic pane l calcium total Ghislaine Macedo RIVET HOLE MACHINE OPERATOR Work Phone: Start: 01-14-2025 Basic metabolic pane l calcium total Ghislaine Macedo RIVET HOLE MACHINE OPERATOR Work Phone: Start: 01-13-2025 Basic metabolic pane l calcium total Ghislaine Macedo RIVET HOLE MACHINE OPERATOR Work Phone: Start: 01-12-2025 Basic metabolic pane l calcium total Ghislaine Macedo RIVET HOLE MACHINE OPERATOR Work Phone: Start: 01-11-2025 Glucose quantitative blood xcpt reagent strip Trung Coppola DO Work Phone: Start: 01-11-2025 Basic metabolic pane l calcium total Ghislaine Macedo RIVET HOLE MACHINE OPERATOR Work Phone: Start: 01-10-2025 Basic metabolic pane l calcium total Ghislaine Macedo RIVET HOLE MACHINE OPERATOR Work Phone: Start: 01-09-2025 Basic metabolic pane l calcium total Ghislaine Macedo RIVET HOLE MACHINE OPERATOR Work Phone: Start: 01-08-2025 Basic metabolic pane l calcium total Ghislaine Macedo RIVET HOLE MACHINE OPERATOR Work Phone: Start: 01-07-2025 Glucose quantitative blood xcpt reagent strip Ashley Hayes MD Work Phone: Start: 01-07-2025 Glucose quantitative blood xcpt reagent strip Ashley Hayes MD Work Phone: Start: 01-07-2025 Glucose quantitative blood xcpt reagent strip Ashley Hayes MD Work Phone: Start: 01-07-2025 Basic metabolic pane l calcium total Ghislaine Macedo RIVET HOLE MACHINE OPERATOR Work Phone: Start: 01-06-2025 Basic metabolic pane l calcium total Ghislaine Macedo RIVET HOLE MACHINE OPERATOR Work Phone: Start: 01-02-2025 Basic metabolic pane l calcium total Ghislaine Macedo RIVET HOLE MACHINE OPERATOR Work Phone: Start: 12-31-2024 Basic metabolic pane l calcium total Ghislaine Macedo RIVET HOLE MACHINE OPERATOR Work Phone: Start: 12-31-2024 ACINETOBACTER BAUMANNII PCR [...] Drug assay valproic dipropylacetic acid total Jess Patton MD Work Phone: Start: 11-03-2024 Blood count complete automated Mejgon Mac Yoana DO Work Phone: Start: 11-03-2024 Urinalysis complete panel - Urine Mejsilviano Watts Yoana DO Work Phone: Start: 11-03-2024 Urnls dip stick/tabl et reagent auto microscopy Mejgoholly Watts Yoana DO Work Phone: Start: 11-03-2024 Radex hip unilateral with pelvis 2-3 views Mejgoholly Watts Yoana DO Work Phone: Start: 09-18-2024 Follow-up visit EDITH MAYS Start: 08-10-2024 Basic metabolic pane l calcium [...] metabolic pane l calcium total Mayito Cedeño STOPPERER ASSEMBLER - EXTENSION SERVICE ADVISOR Work Phone: Start: 08-01-2024 Drug assay valproic dipropylacetic acid total Mayito Cedeño STOPPERER ASSEMBLER - EXTENSION SERVICE ADVISOR Work Phone: Start: 08-01-2024 End: 08-01-2024 Radiologic examination tibia & fibula 2 views Mayito Cedeño STOPPERER ASSEMBLER - EXTENSION SERVICE ADVISOR Work Phone: Start: 07-04-2024 Assay of osmolality urine Mary Gamboa MD Work Phone: Start: 07-04-2024 Basic metabolic pane l calcium total Sarah Gutierrez DO Work Phone: Start: 07-03-2024 Renal function panel Th marli Gamboa MD Work Phone: Start: 07-02-2024 [...] Glucose quantitative blood xcpt reagent strip Estephania Teran MD Work Phone: Start: 06-28-2024 Culture bacterial [...] MD Work Phone: Start: 06-18-2024 Follow-up visit EDITH Kesha MAYS Start: 06-14-2024 Follow-up visit EDITH MAYS Start: 09-04-2023 Urinalysis complete panel - Urine [...] 03-17-2023 Basic metabolic pane l calcium total Ana Sierra MD Work Phone: Start: 03-17-2023 Thyrotropin [Units/v olume] in Serum or Plasma [facility] 1 Start: 03-17-2023 Assay of free thyroxine Kevin Grimes DO Work Phone: Start: 03-17-2023 Drug [...] Thyrotropin [Units/v olume] in Serum or Plasma [facility] Start: 05-11-2022 End: 05-11-2022 Screening digital [...] MD Work Phone: Start: 03-24-2022 Lipid panel Edith schafer MD Work Phone: Start: 03-24-2022 Lipid [...] of triiodothyr onine t3 total tt3 Shaila Mckenziejohanny Work Phone: Start: 04-30-2020 Assay of thyroid sti mulating hormone tsh Shaila Garcia Work Phone: Start: 04-30-2020 Thyrotropin [Units/v olume] in Serum or Plasma Edith Pierce MD Work Phone: Start: 03-04-2020 Assay of parathormone S fara Pruett Work Phone: Start: 03-04-2020 Blood count hemoglobin Ewelina Preutt Work Phone: Start: 03-04-2020 Creatinine other source [...] canal lum bar w/o contrast material Nathan Mcculloughjacquelynjennifer Work Phone: Start: 05-30-2019 Basic metabolic pane l calcium total Fran Bowers Work Phone: Start: 05-30-2019 Blood count complete auto&auto difrntl wbc Fran Bowers Work Phone: Start: 03-27-2019 Renal function panel Ashlee Panda Work Phone: Start: 03-28-2018 Colonoscopy Fran Bowers MD Work Phone: Plan of Treatment Date Care Activity Detail Author Start: 2042 RSV Immunization for Adults (1 - 1-dose 75+ series) RSV Immunization for Adults (1 - 1-dose 75+ series) [facility] Start: 02-12-2032 Pneumococcal 0-64 years Vaccine (4 of 4 - PPSV23) Pneumococcal 0-64 years Vaccine (4 of 4 - PPSV23) [facility] Start: 02-12-2032 Pneumococcal 0-64 years Vaccine (4 of 4) Pneumococcal 0-64 years Vaccine (4 of 4) [facility] Work Phone: Start: 03-09-2030 Lipid panel Lipid Panel [facility] Start: 12-04-2028 DTaP/Tdap/Td vaccine (2 - Td or Tdap) DTaP/Tdap/Td vaccine (2 - Td or Tdap) [facility] Start: 12-04-2028 DTaP/Tdap/Td vaccine (2 - Td) DTaP/Tdap/Td vaccine (2 - Td) [place], [place] Start: 12-04-2028 DTaP/Tdap/Td Vaccines (2 - Td or Tdap) DTaP/Tdap/Td Vaccines (2 - Td or Tdap) [facility] Start: 12-04-2028 Urine microalbumin profile DTaP,Tdap,Td Vaccine (2 - Td or Tdap) [facility] Start: 06-28-2028 Lipid panel Lipid Panel [facility] Start: 03-28-2028 Colon cancer screen colonoscopy Colon cancer screen colonoscopy [place], [place] Start: 03-28-2028 Screening for malignant neoplasm of colon [facility] Start: 03-24-2027 Lipid panel [facility] Start: 2027 RSV Immunization aged 60 or older (1 - 1-dose 60+ series) RSV Immunization aged 60 or older (1 - 1-dose 60+ series) [facility] Start: 03-08-2026 Thyroid stimulating hormone measurement TSH Level [facility] Start: 12-30-2025 Thyroid stimulating hormone measurement TSH Level [facility] Start: 09-08-2025 Depression Monitoring Depression Monitoring [facility] Start: 08-06-2025 Thyroid stimulating hormone measurement TSH Level [facility] Start: 07-15-2025 Diabetes Screening Diabetes Screening [facility] Start: 06-30-2025 Thyroid stimulating hormone measurement TSH Level [facility] Start: 06-10-2025 End: 06-10-2025 Patient encounter procedure 06/10/2025 9:20 AM EDT Office Visit [facility] [address] [place] [address] Pete Mahan MD [address] [place] [address] [address] [place] [address] [facility] Start: 04-15-2025 COVID-19 Vaccine ( season) COVID-19 Vaccine ( season) [facility] Start: 04-15-2025 Influenza vaccination [facility] Start: 04-03-2025 Depression Monitoring Depression Monitoring [facility] Start: 03-25-2025 End: 03-25-2025 Patient encounter procedure 03/25/2025 1:20 PM EDT Office Visit [facility] - [place] [address] [place] [phone] Edith Pierce MD [address] [place], [place] [id number] [facility] - [place] Start: 01-09-2025 End: 01-09-2025 Patient encounter procedure 01/09/2025 2:00 PM EDT Appointment [facility] - [place] [address] [place] [address] Duglas Aguilar, DO [address] [place], [place] [id number] [facility] - [place] Start: 01-03-2025 End: 01-03-2025 Patient encounter procedure 01/03/2025 8:00 AM EDT [facility] [address] [place] [address] [place] [address] Mari Delgado MD [address] [place] [address] [place] [phone] [facility] - [place] Start: 01-02-2025 End: 01-02-2025 Patient encounter procedure 01/02/2025 2:00 PM EDT Appointment [facility] - [place] [address] [place] [address] Duglas Aguilar, DO [address] [place], [place] [id number] [facility] [place] Start: 12-10-2024 End: 12-10-2024 Patient encounter procedure 12/10/2024 1:20 PM EDT Procedure Visit [facility] - [place] [place] [phone] Edith Pierce MD [address] [place], [place] [address] [facility] [place] Start: 09-18-2024 End: 09-18-2025 Alanine aminotransferase [Enzymatic activity/volume] in Serum or Plasma ALT Lab Routine Psychogenic polydipsia Anemia in stage 4 chronic kidney disease (HCC) (HCC) Chronic schizoaffective disorder (HCC) HTN (hypertension), benign Mixed hyperlipidemia Acquired hypothyroidism Expected: 09/18/2024 (Approximate), Expires: 09/18/2025 [facility] Comment on above: Expected: 09/18/2024 (Approximate), Expi res: 09/18/2025 Start: 09-18-2024 End: 09-18-2025 Aspartate aminotransferase [Enzymatic activity/volume] in Serum or Plasma AST Lab Routine Psychogenic polydipsia Anemia in stage 4 chronic kidney disease (HCC) (HCC) Chronic schizoaffective disorder (HCC) HTN (hypertension), benign Mixed hyperlipidemia Acquired hypothyroidism Expected: 09/18/2024 (Approximate), Expires: 09/18/2025 [facility] Comment on above: Expected: 09/18/2024 (Approximate), Expi res: 09/18/2025 Start: 09-18-2024 End: 09-18-2025 CBC W Auto Differential panel - Blood CBC auto differential Lab Routine Psychogenic polydipsia Anemia in stage 4 chronic kidney disease (HCC) (HCC) Chronic schizoaffective disorder (HCC) HTN (hypertension), benign Mixed hyperlipidemia Acquired hypothyroidism Expected: 09/18/2024 (Approximate), Expires: 09/18/2025 [facility] System Work Phone: Comment on above: Expected: 09/18/2024 (Approximate), Expi res: 09/18/2025 Start: 09-18-2024 End: 11-16-2025 DBT Breast - bilateral screening Bilateral screening mammogram with tomosynthesis Imaging Routine Screening mammogram for breast cancer Expected: 09/18/2024, Expires: 11/16/2025 [facility] Comment on above: Expected: 09/18/2024, Expires: Start: 09-18-2024 End: 09-18-2025 Lipid 1996 panel - Serum or Plasma Lipid panel Lab Routine Psychogenic polydipsia Anemia in stage 4 chronic kidney disease (HCC) (HCC) Chronic schizoaffective disorder (HCC) HTN (hypertension), benign Mixed hyperlipidemia Acquired hypothyroidism Expected: 09/18/2024 (Approximate), Expires: 09/18/2025 [facility] Comment on above: Expected: 09/18/2024 (Approximate), Expi res: 09/18/2025 Start: 09-18-2024 End: 09-18-2025 Thyrotropin [Units/volume] in Serum or Plasma TSH Lab Routine Psychogenic polydipsia Anemia in stage 4 chronic kidney disease (HCC) (HCC) Chronic schizoaffective disorder (HCC) HTN (hypertension), benign Mixed hyperlipidemia Acquired hypothyroidism Expected: 09/18/2024 (Approximate), Expires: 09/18/2025 [facility] Comment on above: Expected: 09/18/2024 (Approximate), Expi res: 09/18/2025 Start: 09-18-2024 End: 09-18-2024 Patient encounter procedure 09/18/2024 1:00 PM EST Office Visit [facility] [place] [address] [place] [address] Edith Pierce MD [address] [place] [address] [place], [place] [phone] [facility] [place] Start: 08-15-2024 Medicare Advantage Annual Wellness Visit Medicare Advantage Annual Wellness Visit [facility] Start: 07-11-2024 End: 07-04-2025 Basic metabolic 1998 panel - Serum or Plasma Basic metabolic panel Lab Routine Hyponatremia Expected: 07/11/2024 (Approximate), Expires: 07/04/2025 [facility] Work Phone: Comment on above: Expected: 07/11/2024 (Approximate), Expi res: 07/04/2025 Start: 06-28-2024 Lipid panel Lipid Panel [facility] Start: 05-31-2024 End: 05-31-2024 Patient encounter procedure 05/31/2024 1:45 PM EDT Office Visit [facility] - [place] [address] [place] [address] Familia Jeronimo MD [address] [place] [address] [facility] [place] Start: 05-11-2024 Screening for malignant neoplasm of breast Breast cancer screen [facility] Start: 04-15-2024 COVID-19 Vaccine ( season) COVID-19 Vaccine () [facility] Start: 04-15-2024 COVID-19 Vaccine () COVID-19 Vaccine () [facility] Start: 04-15-2024 Influenza vaccination [facility] Start: 03-17-2024 Thyroid stimulating hormone measurement TSH Level [facility] Start: 02-28-2024 End: 02-28-2024 Patient encounter procedure [facility] Start: 12-24-2023 Thyroid stimulating hormone measurement TSH Level [facility] Start: 09-28-2023 Diabetes mellitus screening Diabetes Screening [facility] Start: 09-28-2023 Hemoglobin A1c measurement Diabetes: Hemoglobin A1C [facility] Start: 09-17-2023 Depression Monitoring Depression Monitoring [facility] Start: 09-17-2023 Depresssion Monitoring Depresssion Monitoring [facility] Start: 08-15-2023 Behavioral Health Screening Behavioral Health Screening [facility] Start: 07-15-2023 Complete blood count Hemoglobin/Hematocrit [facility] Start: 07-15-2023 Creatinine measurement Serum Creatinine [facility] Start: 07-04-2023 Screening for malignant neoplasm of cervix [facility] Start: 06-28-2023 End: 06-28-2023 Patient encounter procedure 06/28/2023 11:00 AM EST Appointment [facility] [address] [place] [phone] [facility] Start: 06-22-2023 End: 06-22-2024 US Retroperitoneum limited US retroperitoneum limited Imaging Routine Stage 3b chronic kidney disease (HCC) Expected: 06/22/2023, Expires: 06/22/2024 [facility] Work Phone: Comment on above: Expected: 06/22/2023, Expires: Start: 06-22-2023 End: 06-22-2023 Patient encounter procedure 06/22/2023 1:50 PM EST Office Visit [facility] [address] [place] [address] [place] [address] Nick Green MD [address] [place] [address] [facility] Start: 06-20-2023 End: 06-20-2024 CBC W Auto Differential panel - Blood CBC auto differential Lab Routine HTN (hypertension), benign Expected: 06/20/2023 (Approximate), Expires: 06/20/2024 [facility] Comment on above: Expected: 06/20/2023 (Approximate), Expi res: 06/20/2024 Start: 06-20-2023 End: 06-20-2024 Comprehensive metabolic 1998 panel - Serum or Plasma Comprehensive metabolic panel Lab Routine HTN (hypertension), benign Expected: 06/20/2023 (Approximate), Expires: 06/20/2024 [facility] Comment on above: Expected: 06/20/2023 (Approximate), Expi res: 06/20/2024 Start: 06-20-2023 End: 06-20-2024 Lipid 1996 panel - Serum or Plasma Lipid panel Lab Routine HTN (hypertension), benign Expected: 06/20/2023 (Approximate), Expires: 06/20/2024 [facility] Work Phone: Comment on above: Expected: 06/20/2023 (Approximate), Expi res: 06/20/2024 Start: 06-20-2023 End: 08-20-2024 MG Breast - bilateral Screening Bilateral screening mammogram Imaging Routine Screening mammogram for breast cancer Expected: 06/20/2023, Expires: 08/20/2024 [facility] Comment on above: Expected: 06/20/2023, Expires: Start: 05-11-2023 Screening for malignant neoplasm of breast Mammogram [facility] Start: 04-15-2023 Covid-19 Vaccine () Covid-19 Vaccine () [facility] Start: 04-15-2023 COVID-19 Vaccine ( season) COVID-19 Vaccine () [facility] Start: 04-15-2023 Influenza vaccination [facility] Start: 04-14-2023 Medicare Annual Wellness (AWV) Medicare Annual Wellness (AWV) [facility] Start: 03-24-2023 DIABETES SCREEN DIABETES SCREEN [facility] Start: 03-16-2023 Annual Wellness Visit (AWV) Annual Wellness Visit (AWV) [facility] Start: 03-15-2023 End: 03-15-2023 Patient encounter procedure 03/15/2023 Office Visit Urology Emilia Santos, STOPPERER ASSEMBLER - EXTENSION SERVICE ADVISOR [address] [place] [address] [facility] Start: 03-15-2023 Depression Monitoring Depression Monitoring [facility] Start: 03-01-2023 End: 03-01-2023 Patient encounter procedure 03/01/2023 Office Visit Urology Emilia Santos, STOPPERER ASSEMBLER - EXTENSION SERVICE ADVISOR [address] [place] [address] [facility] [place] Start: 02-23-2023 End: 08-26-2023 US Retroperitoneum US retroperitoneum Imaging Routine Urge incontinence of urine Urinary retention Expected: 02/23/2023, Expires: 08/26/2023 [facility] Work Phone: Comment on above: Expected: 02/23/2023, Expires: Start: 02-15-2023 Lipid panel [facility] Start: 02-15-2023 Lipid screen Lipid screen [facility] [place] Start: 01-06-2023 BP CONTROLLED (<130/80) BP CONTROLLED (<130/80) [facility] in Start: 10-21-2022 Creatinine measurement Creatinine monitoring [facility] Start: 10-21-2022 Potassium monitoring Potassium monitoring [facility] Start: 10-21-2022 Thyroid stimulating hormone measurement TSH testing [facility] Start: 09-02-2022 End: 09-02-2022 Patient encounter procedure 09/02/2022 Office Visit Family Medicine Edith Pierce MD [address] [place] [phone] [facility] Start: 08-15-2022 DEPRESSION ASSESSMENT DEPRESSION ASSESSMENT [facility] Start: 07-17-2022 Creatinine measurement Creatinine monitoring [facility] Start: 07-17-2022 Potassium monitoring Potassium monitoring [facility] Start: 07-17-2022 Thyroid stimulating hormone measurement TSH testing [facility] Start: 06-03-2022 Screening for malignant neoplasm of breast Breast cancer screen [facility] Start: 05-19-2022 End: 07-19-2022 T3 FREE BLD T3 FREE BLD Lab Routine Hypothyroidism, unspecified type Expected: 05/19/2022 (Approximate), Expires: 07/19/2022 [facility] Work Phone: Comment on above: Expected: 05/19/2022 (Approximate), Expi res: 07/19/2022 Start: 05-19-2022 End: 07-19-2022 T4 FREE/FREE THYROX T4 FREE/FREE THYROX Lab Routine Hypothyroidism, unspecified type Expected: 05/19/2022 (Approximate), Expires: 07/19/2022 [facility] Work Phone: Comment on above: Expected: 05/19/2022 (Approximate), Expi res: 07/19/2022 Start: 05-19-2022 End: 07-19-2022 Thyrotropin [Units/volume] in Serum or Plasma TSH BLD Lab Routine Hypothyroidism, unspecified type Expected: 05/19/2022 (Approximate), Expires: 07/19/2022 [facility] Work Phone: Comment on above: Expected: 05/19/2022 (Approximate), Expi res: 07/19/2022 Start: 05-19-2022 End: 07-19-2022 VITAMIN D 25 HYDROXY VITAMIN D 25 HYDROXY Lab Routine Vitamin D deficiency Expected: 05/19/2022 (Approximate), Expires: 07/19/2022 [facility] Work Phone: Comment on above: Expected: 05/19/2022 (Approximate), Expi res: 07/19/2022 Start: 05-11-2022 End: 05-11-2022 Patient encounter procedure 05/11/2022 Appointment Radiology Edith Pierce MD [address] [place] [id number] [facility] [place] [facility] Start: 05-03-2022 End: 05-03-2022 Patient encounter procedure 05/03/2022 Office Visit Family Medicine Edith Pierce MD [address] [place] [phone] [facility] Start: 04-15-2022 Influenza vaccination [facility] Start: 03-31-2022 COVID-19 Vaccine (3 - Booster for Pfizer series) COVID-19 Vaccine (3 - Booster for Pfizer series) [facility] Start: 03-31-2022 COVID-19 Vaccine (3 - Pfizer series) COVID-19 Vaccine (3 - Pfizer series) [facility] Start: 03-24-2022 End: 03-24-2022 Patient encounter procedure 03/24/2022 Office Visit Cardiology Pete Mahan MD [address] [facility] [address] [address] [place] [address] [facility] Start: 03-15-2022 End: 03-15-2022 Patient encounter procedure 03/15/2022 Office Visit Family Medicine Edith Pierce MD [address] [place] [id number] [facility] Start: 03-13-2022 Annual Wellness Visit (AWV) Annual Wellness Visit (AWV) [facility] Start: 02-25-2022 End: 02-25-2022 Patient encounter procedure 02/25/2022 Office Visit Urology Emilia Santos, VENTURA - EXTENSION SERVICE ADVISOR [address] [place] [address] [facility] [place] Start: 01-20-2022 COVID-19 VACCINE (4 - Booster for Pfizer series) COVID-19 VACCINE (4 - Booster for Pfizer series) [facility] Start: 11-17-2021 COVID-19 VACCINE (4 - Booster for Pfizer series) COVID-19 VACCINE (4 - Booster for Pfizer series) [facility] Start: 08-15-2021 DEPRESSION ASSESSMENT DEPRESSION ASSESSMENT [facility] Start: 07-04-2021 Creatinine measurement Creatinine monitoring [facility] Work Phone: Start: 07-04-2021 Potassium monitoring Potassium monitoring [facility] Work Phone: Start: 06-03-2021 Creatinine measurement Creatinine monitoring [facility] [place] Start: 06-03-2021 Potassium monitoring Potassium monitoring [place] [place] Start: 05-28-2021 COVID-19 Vaccine (3 - Booster for Pfizer series) COVID-19 Vaccine (3 - Booster for Pfizer series) [facility] Start: 05-02-2021 Breast cancer screen Breast cancer [place] [place] Start: 04-30-2021 Thyroid stimulating hormone measurement [facility] Start: 04-30-2021 TSH Qn TSH testing [place] [place] Start: 04-25-2021 Breast cancer screen [facility] [place] [place] Start: 03-24-2021 SERUM CREATININE SERUM CREATININE [facility] Start: 03-22-2021 HEMOGLOBIN/HEMATOCRIT HEMOGLOBIN/HEMATOCRIT [facility] Start: 03-12-2021 End: 03-12-2021 Patient encounter procedure 03/12/2021 Office Visit Family Medicine Edith Pierce MD [address] [place] [address] [phone] [facility] Start: 03-04-2021 Creatinine measurement Creatinine monitoring [place] [place] Start: 03-04-2021 Potassium monitoring Potassium [place] Start: 03-04-2021 TSH Qn TSH testing [employer] [place] Start: 02-15-2021 Diabetes screen Diabetes screen [facility] Start: 01-15-2021 [facility] Start: 12-30-2020 Creatinine measurement Creatinine monitoring [facility], [place] Start: 12-30-2020 Potassium monitoring Potassium monitoring [facility], [place] Start: 12-26-2020 COVID-19 Vaccine (2 - Pfizer 2-dose series) COVID-19 Vaccine (2 - Pfizer 2-dose series) [facility] Work Phone: Start: 10-23-2020 Breast cancer screen Breast [facility] [place] M[place]DE[place] Start: 10-23-2020 Screening for malignant neoplasm of breast [facility] Start: 10-04-2020 Creatinine monitoring Creatinine monitoring [facility] [place] Start: 10-04-2020 Potassium monitoring Potassium monitoring [facility], [place] Start: 07-24-2020 End: 07-24-2020 Virtual Visit 07/24/2020 Virtual Visit Behavioral Health Fran Bowers MD [address] [place] [address], [address] [place], [place] [phone] [facility] Start: 05-30-2020 Creatinine monitoring Creatinine monitoring Mar[facility] JO[place] Start: 05-30-2020 [facility] Start: 05-29-2020 End: 05-29-2020 Office Visit [facility] Start: 04-22-2020 End: 04-22-2020 Office Visit 04/22/2020 Office Visit Behavioral Health Fran Bowers MD [address] [place] [address], [address] [place], [place] [phone] [facility] Start: 04-15-2020 Influenza [facility] Start: 03-31-2020 End: 03-31-2020 Office Visit 03/31/2020 Office Visit Family Medicine Edith Pierce MD [address] [place] [address] [phone] [facility] Start: 03-29-2020 Cervical cancer screen Cervical cancer screen [facility] JO[place] Start: 03-29-2020 Screening for malignant neoplasm of cervix [facility] Start: 03-27-2020 Creatinine monitoring Creatinine monitoring [facility] JO[place] Start: 03-27-2020 Potassium monitoring Potassium monitoring [facility] JOSE Start: 01-22-2020 End: 01-22-2020 Office Visit 01/22/2020 Office Visit Fran Pearl MD [address] [facility] [place] [address] [phone] [facility] Start: 12-31-2019 End: 12-31-2019 Office Visit 12/31/2019 Office Visit Family Medicine Edith Pierce MD [address] [place] [address] [phone] [facility] Start: 11-06-2019 End: 11-06-2019 Office Visit 11/06/2019 Office Visit Behavioral Fran Eastman MD [address] [facility], [address] [place] [address] [phone] [facility] Start: 10-24-2019 Screening for malignant neoplasm of breast Mammogram Screening [facility] Start: 10-24-2019 End: 10-24-2019 Office Visit 10/24/2019 Office Visit Behavioral Health Fran Bowers MD [address] [place] [address], [address] [place], [place] [address] [facility] Start: 05-23-2019 End: 05-23-2019 Office Visit 05/23/2019 Office Visit Urology Nick Green MD [address] [place] [address] [phone] [facility] Start: 04-15-2019 Influenza vaccination Flu vaccine (#1) [facility] JOSE Start: 01-31-2019 Annual Wellness Visit (AWV) Annual Wellness Visit (AWV) [facility] Start: 10-05-[address] [facility] JO[facility] Start: 10-05-2018 TSH testing TSH testing [place], [place] Start: 09-11-2018 Pneumococcal 0-64 years Vaccine (3 of 3 - PPSV23) Pneumococcal 0-64 years Vaccine (3 of 3 - PPSV23) [place] Start: 2017 Shingles Vaccine (1 of 2) Shingles Vaccine (1 of 2) [facility] Start: 2017 SHINGRIX VACCINE (1 of 2) SHINGRIX VACCINE (1 of 2) [facility] Start: 2017 Zoster Vaccines (1 of 2) Zoster Vaccines (1 of 2) [facility] Start: 02-12-2012 COLOGUARD (FIT-DNA) COLOGUARD (FIT-DNA) [facility] Start: 02-12-2012 Colonoscopy COLONOSCOPY [facility] Start: 02-12-2012 COLORECTAL CANCER SCREENING COLORECTAL CANCER SCREENING [facility] Start: 02-12-[address] COLONOGRAPHY [facility] Start: 02-12-2012 FECAL OCCULT BLOOD FECAL OCCULT BLOOD [facility] Start: 02-12-2012 LIPID SCREEN LIPID SCREEN [facility] Start: 02-12-2012 Screening for malignant neoplasm of colon [facility] Start: 02-12-2012 SIGMOIDOSCOPY SIGMOIDOSCOPY [facility] Start: 2007 Mammography MAMMOGRAM [facility] Start: 1997 HPV TESTING HPV TESTING [facility] Start: 1997 Screening for malignant neoplasm of cervix [facility] Start: 02-12-1988 PAP TESTING PAP TESTING [facility] Start: 02-12-1988 Screening for malignant neoplasm of cervix Pap Testing [facility] Start: 1986 Hepatitis B Vaccine (1 of 3 - 19+ 3-dose series) Hepatitis B Vaccine (1 of 3 - 19+ 3-dose series) [facility] Start: 1986 Hepatitis B Vaccine (1 of 3 - Risk 3-dose series) Hepatitis B Vaccine (1 of 3 - Risk 3-dose series) [place] Start: 1986 Hepatitis B Vaccines (1 of 3 - 19+ 3-dose series) Hepatitis B Vaccines (1 of 3 - 19+ 3-dose series) [facility] Start: 1986 Urine microalbumin profile DTAP,TDAP,TD (1 - Tdap) [facility] Start: 1985 ANNUAL PCP TEAM CHRONIC DISEASE VISIT ANNUAL PCP TEAM CHRONIC DISEASE VISIT [facility] Start: 1985 BP CONTROLLED (<130/80) BP CONTROLLED (<130/80) [facility] in Start: 1985 Diabetes mellitus screening Diabetes Screening [facility] Start: 1985 HEPATITIS C SCREENING HEPATITIS C SCREENING [facility] Start: 1985 Hepatitis C [facility] Start: 1985 HIV SCREENING HIV SCREENING [facility] Start: 1985 HIV screening HIV Screening [facility] Start: 1982 HIV screen HIV screen [place] Start: 1982 HIV screening HIV screen [facility] Start: 1979 Adult depression screening assessment DEPRESSION SCREENING [facility] Start: 1979 Depression Monitoring Depression Monitoring [facility] Start: 1979 Depresssion Monitoring Depresssion Monitoring [facility] Start: 1977 Diabetic foot examination Diabetes: Foot Exam [facility] Start: 1977 Glaucoma screening Diabetes: Retinopathy Screening [facility] Start: 1977 Preventive dental service Diabetes: Dental Exam [facility] Start: 02-12-1968 MMR Vaccines (1 of 1 - Standard series) MMR Vaccines (1 of 1 - Standard series) [facility] Start: 1965 HEPATITIS B (1 of 3 - 3-dose series) HEPATITIS B (1 of 3 - 3-dose series) [facility] Start: 1965 Hepatitis B Vaccines (1 of 3 - 3-dose series) Hepatitis B Vaccines (1 of 3 - 3-dose series) [facility] Start: 1965 Hepatitis C screening Hepatitis C screen [facility] Start: 1965 HIV screening HIV Screening [facility] Start: 1965 Medicare Advantage Annual Wellness Visit (AWV) Medicare Advantage Annual Wellness Visit (AWV) [facility] Start: 1965 Medicare Annual Wellness (AWV) Medicare Annual Wellness (AWV) [facility] Start: 1965 Screening for malignant neoplasm of colon [facility] Start: 1965 Thyroid stimulating hormone measurement TSH Level [facility] End: 04-05-2022 Anti-DNA Antibody, Double-Stranded Anti-DNA Antibody, Double-Stranded Lab Routine Once for 1 Occurrences starting 04/05/2022 until 04/05/2022 [facility] Work Phone: Comment on above: Once for 1 Occurrences starting 04/05/20 until 04/05/2022 Anti-DNA Antibody, Double-Stranded Anti-DNA Antibody, Double-Stranded Lab Routine 04/05/2022 2:08 PM EDT [facility] Work Phone: End: 04-05-2022 Anti-Neutrophilic Cytoplasmic Antibody Anti-Neutrophilic Cytoplasmic Antibody Lab Routine Once for 1 Occurrences starting 04/05/2022 until 04/05/2022 [facility] Work Phone: Comment on above: Once for 1 Occurrences starting 04/05/20 until 04/05/2022 Anti-Neutrophilic Cytoplasmic Antibody Anti-Neutrophilic Cytoplasmic Antibody Lab Routine 04/05/2022 2:08 PM EDT [facility] Work Phone: End: 12-25-2024 Bacteria identified in Urine by Culture [employer] [employer] Work Phone: Comment on above: Once (Lab) for 1 Occurrences starting until 12/25/2024 End: 08-05-2024 Basic metabolic 1998 panel - Serum or Plasma Basic metabolic panel Lab Timed Once for 1 Occurrences starting 08/05/2024 until 08/05/2024 [employer] Work Phone: Comment on above: Once for 1 Occurrences starting 08/05/20 24 until 08/05/2024 End: 04-05-2022 Cortisol Total Cortisol Total Lab Routine Once for 1 Occurrences starting 04/05/2022 until 04/05/2022 [facility] Work Phone: Comment on above: Once for 1 Occurrences starting 04/05/20 until 04/05/2022 Cortisol Total Cortisol Total L ab Routine 04/05/2022 2:08 PM EDT [facility] Work Phone: Electrophoresis Prot ein, Serum Electrophoresis Protein, Serum Lab Routine 04/05/2022 2:08 PM EDT [facility] Work Phone: End: 04-05-2022 Glomerular Basement Membrane (GBM) Antibody IgG Glomerular Basement Membrane (GBM) Antibody IgG Lab Routine Once for 1 Occurrences starting 04/05/2022 until 04/05/2022 [facility] Work Phone: Comment on above: Once for 1 Occurrences starting 04/05/20 until 04/05/2022 Glomerular Basement Membrane (GBM) Antibody IgG Glomerular Basement Membrane (GBM) Antibody IgG Lab Routine 04/05/2022 2:08 PM EDT [facility] Work Phone: Immunofixation electrophoresis Immunofixation electrophoresis Lab Routine 04/05/2022 2:08 PM EDT [facility] Work Phone: End: 08-01-[address] [facility] Work Phone: Comment on above: Once (Lab) for 1 Occurrences starting until 08/01/2024 End: 11-15-[address] [facility] Work Phone: Comment on above: Once (Lab) for 1 Occurrences starting until 11/15/2024 End: 04-05-2022 Nuclear Ab [Titer] in Serum by Immunofluorescence CRYSTAL Lab Routine Once for 1 Occurrences starting 04/05/2022 until 04/05/2022 [facility] Work Phone: Comment on above: Once for 1 Occurrences starting 04/05/20 until 04/05/2022 Nuclear Ab [Titer] i n Serum by Immunofluorescence CRYSTAL Lab Routine 04/05/2022 2:08 PM EDT [facility] Work Phone: End: 05-03-2022 Nuclear Ab [Titer] in Serum by Immunofluorescence [facility] Work Phone: Comment on above: 1 Occurrences starting 05/03/2022 until 05/03/2022 End: 08-05-2024 Osmolality, urine Osmolality, urine Lab Routine Once (Lab) for 1 Occurrences starting 08/05/2024 until 08/05/2024 [facility] [employer] Work Phone: Comment on above: Once (Lab) for 1 Occurrences starting until 08/05/2024 OUTSIDE PROCEDURE SCAN OUTSIDE P ROCEDURE SCAN Procedures Ordered: 12/23/2022 [facility] Comment on above: Ordered: 12/23/2022 OUTSIDE PROCEDURE SCAN OUTSIDE P ROCEDURE SCAN Procedures Ordered: 06/27/2023 [facility] Comment on above: Ordered: 06/27/2023 OUTSIDE PROCEDURE SCAN OUTSIDE P ROCEDURE SCAN Procedures Ordered: 04/17/2024 [facility] Comment on above: Ordered: 04/17/2024 End: 04-05-2022 Phospholipase A2 Receptor (PLA2R) Ab IgG, Reflex Titer Phospholipase A2 Receptor (PLA2R) Ab IgG, Reflex Titer Lab Routine Once for 1 Occurrences starting 04/05/2022 until 04/05/2022 [employer] Work Phone: Comment on above: Once for 1 Occurrences starting 04/05/20 until 04/05/2022 Phospholipase A2 Rec eptor (PLA2R) Ab IgG, Reflex Titer Phospholipase A2 Receptor (PLA2R) Ab IgG, Reflex Titer Lab Routine 04/05/2022 2:08 PM EDT [facility] Work Phone: End: 04-05-2022 RPR Reflex RPR Reflex Lab Routine Once for 1 Occurrences starting 04/05/2022 until 04/05/2022 [facility] Work Phone: Comment on above: Once for 1 Occurrences starting 04/05/20 until 04/05/2022 RPR Reflex RPR Reflex Lab R outine 04/05/2022 2:08 PM EDT [employer] Work Phone: End: 06-03-2020 Screening digital breast tomosynthesis bi Lakesha Simon Digital Screen Bilateral Imaging Routine Once for 1 Occurrences starting 06/03/2020 until 06/03/2020 [facility] on above: Once for 1 Occurrences starting 06/03/20 until 06/03/2020 Screening digital br east tomosynthesis bi Lakesha Simon Digital Screen Bilateral Imaging Routine 06/03/2020 11:47 AM EDT [facility] End: 12-01-2023 Thyrotropin [Units/volume] in Serum or Plasma TSH BLD Lab Routine Hypothyroidism, unspecified type Every 4 months for 3 Occurrences starting 12/01/2022 until 12/01/2023 [facility] Work Phone: Comment on above: Every 4 months for 3 Occurrences startin g 12/01/2022 until 12/01/2023 End: 12-01-2023 Thyroxine (T4) free [Mass/volume] in Serum or Plasma T4 FREE/FREE THYROX Lab Routine Hypothyroidism, unspecified type Every 4 months for 3 Occurrences starting 12/01/2022 until 12/01/2023 [facility] Work Phone: Comment on above: Every 4 months for 3 Occurrences startin g 12/01/2022 until 12/01/2023 End: 12-01-2023 Triiodothyronine (T3) Free [Mass/volume] in Serum or Plasma T3 FREE BLD Lab Routine Hypothyroidism, unspecified type Every 4 months for 3 Occurrences starting 12/01/2022 until 12/01/2023 [facility] Work Phone: Comment on above: Every 4 months for 3 Occurrences startin g 12/01/2022 until 12/01/2023 End: 06-28-2023 [facility] limited [facility] [employer] Work Phone: Comment on above: Once for 1 Occurrences starting 06/28/20 23 until 06/28/2023 End: 04-05-2022 Vitamin D 1,25 Dihydroxy Vitamin D 1,25 Dihydroxy Lab Routine Once for 1 Occurrences starting 04/05/2022 until 04/05/2022 [facility] Work Phone: Comment on above: Once for 1 Occurrences starting 04/05/20 until 04/05/2022 Vitamin D 1,25 Dihydroxy Vitamin D 1,25 Dihydroxy Lab Routine 04/05/2022 2:08 PM EDT [facility] Work Phone: End: 03-04-2020 Vitamin D 25 Hydroxy Vitamin D 25 Hydroxy Lab Routine Once for 1 Occurrences starting 03/04/2020 until 03/04/2020 [facility] [place] Comment on above: Once for 1 Occurrences starting 03/04/20 until 03/04/2020 Vitamin D 25 Hydroxy Vitamin D 2 5 Hydroxy Lab Routine 03/04/2020 11:21 AM EDT [facility] [place] End: 01-13-2021 XR Shoulder Left 2 VW XR Shoulder Left 2 VW Imaging Routine Once for 1 Occurrences starting 01/13/2021 until 01/13/2021 [facility] Work Phone: Comment on above: Once for 1 Occurrences starting 01/14/20 21 until 01/13/2021 XR Shoulder Left 2 VW XR Shoulde r Left 2 VW Imaging Routine 01/13/2021 2:19 PM EDT [facility] Work Phone: [facility] Immunizations Immunization Date Immunization Notes Care Provider Fa [facility] 06-29-2024 influenza vaccine tiss-cult subunt (Flucelvax) STANDARD-DOSE injection 0.5 mL Sarah Duran MD Work Phone: [facility] 06-20-2023 influenza, injectabl e, quadrivalent, contains preservative Edith Pierce MD Work Phone: [facility] 06-20-2023 influenza virus vaccine, unspecified formulation Edith Pierce MD Work Phone: [facility] 05-07-2022 influenza virus vaccine, unspecified formulation Aster Sparks STOPPERER ASSEMBLER - RIVET HOLE MACHINE OPERATOR Work Phone: [facility] 02-03-2022 Covid-19, Pfizer Gra y Top, Do Not Dilute, (Age 12 Y+), Kesha Wisdom MD Work Phone: [facility] 09-22-2021 Covid-19, Pfizer Gra y Top, Do Not Dilute, (Age 12 Y+), Kesha Wisdom MD Work Phone: [facility] 05-26-2021 influenza virus vaccine, unspecified formulation Shania Cho MD Work Phone: [facility] 12-26-2020 COVID-19 vaccine, ag e 12+ yr (PFIZER-BIONTECH - PURPLE TOP) Shania Cho MD Work Phone: [facility] Work Phone: 12-05-2020 COVID-19 vaccine, ag e 12+ yr (PFIZER-BIONTECH - PURPLE TOP) Shania Cho MD Work Phone: [facility] 07-04-2020 influenza virus vaccine, unspecified formulation Adrián Dudley STOPPERER ASSEMBLER - EXTENSION SERVICE ADVISOR Work Phone: [facility] 08-31-2019 pneumococcal polysaccharide vaccine, 23 valent [facility] [place] 12-04-2018 tetanus toxoid, redu janak diphtheria toxoid, and acellular pertussis vaccine, adsorbed [facility] [place] 07-17-2018 pneumococcal conjuga te vaccine, 13 valent [facility] 05-20-2018 influenza, injectabl e, quadrivalent, preservative free [facility] [place] 05-20-2018 Influenza, Quadv, 6 mo and older, IM, PF (Flulaval, Fluarix) Zehra Villarrealmoriah [facility] 05-15-2016 Influenza Vaccine, unspecified formulation [facility] Payers Date Payer Category Payer Unknown [id number] 2025 Unknown [id number] 2025 Unknown [id number] 2025 Self-pay 2024 Commercial Managed Formerly [facility] G ESCALANTE EXCHANGE [id number] 2024 Medicare HMO [id number] 2024 Medicare [id number] 2017 Unknown [id number] 2015 Medicaid [id number] 2015 Unknown [id number] .[id number] 2014 Medicare MEDICARE MEDICAR E PART A AND B xxxxxxxxxxx 2014-Present [phone] [place] [address] xxxxxxxxxxx [id number] 2004 Medicare 2004 Medicare [id number] .[id number] 2004 Medicare [id number] [id number] .[id number] 1967 Unknown [id number] 2.16840.1.153945.3.579.2 1967 Unknown [id number] 2.840.1.863460.3.579.2 1967 Unknown [id number] 2.16840.1.736483.3.579.2 1967 Unknown [id number] 2.840.1.077994.3.579.2 1967 Unknown [id number] 2.16840.1.367815.3.579.2 1967 Unknown [id number] 2.16840.1.522385.3.579.2 1967 Unknown [id number] 2.16840.1.149161.3.579.2 1967 Unknown [id number] 2.16.840.1.818372.3.579.2 1967 Unknown [id number] 2.16840.1.636116.3.579.2 .668 1967 Unknown [id number] 2.16.840.1.376069.3.579.2 .668 1967 Unknown [id number] 2.16.840.1.499195.3.579.2 .668 1967 Unknown [id number] 2.16.840.1.224447.3.579.2 .668 1967 Unknown [id number] 2.16.840.1.103277.3.579.2 .668 Medicaid HMO [id number] .[id number] Medicaid [id number] 1.2.840.572662.1.13.239.2 .[id number] Unknown Unknown [id number] 2.16.840.1.017065.3.579.2 .462 Unknown [id number] 2.16.840.1.828078.3.579.2 .462 Unknown [id number] 2.16.840.1.881398.3.579.2 .462 Unknown [id number] 2.16.840.1.157673.3.579.2 .462 Unknown [id number] 2.16.840.1.756037.3.579.2 .462 Unknown [id number] 2.16.840.1.846165.3.579.2 .462 Unknown [id number] 2.16.840.1.399210.3.579.2 .462 Social History Date Type Detail Facility Start: 03-08-2019 End: 09-05-2019 Tobacco smoking status CTIS Former smoker [facility] Start: 03-08-2019 End: 03-07-2025 Alcohol intake No [facility] [place] Start: 03-28-2018 End: 03-15-2022 Tobacco Comment 25 years ago [place], [place] Start: 1965 Sex Assigned At Not on file [facility] Start: 07-05-2019 End: 03-06-2025 Alcohol intake Current non-drinker of alcohol (finding) [facility] JO[facility] Exposure to SARS-CoV -2 (event) Unable to assess [facility] Start: 09-05-2019 End: 12-31-2019 Tobacco use and exposure [facility] Start: 12-27-2021 End: 03-16-2023 Exposure to SARS-CoV-2 (event) Not sure [facility] Start: 07-04-2020 End: 03-07-2025 Alcohol intake [facility] Work Phone: Start: 08-15-1982 End: 08-15-1992 History of tobacco use Current smoker [facility] Start: 01-04-2020 End: 01-06-2022 Alcohol intake Current drinker of alcohol (finding) [facility] Start: 03-15-2022 History SDOH Alcohol Frequency 1 [facility] Work Phone: Start: 03-15-2022 History SDOH Physica l Activity DPW 0 [facility] Work Phone: Start: 08-15-1982 End: 08-15-1992 History of tobacco use Cigarette Smoker [facility] How often to you hav e a drink containing alcohol? [facility] How many standard drinks containing alcohol do you have on a typical day? Patient does not drink [facility] Within the last year , have you been afraid of your partner or ex-partner? No [facility] Start: 03-15-2022 Sex Female (finding) [facility] (I/We) worried wheth er (my/our) food would run out before (I/we) got money to buy more. Never true [facility] Are you now , , , , never or living with a partner? Never [facility] Do you feel stress - tense, restless, nervous, or anxious, or unable to sleep at night because your mind is troubled all the time - these days [OSQ] Not at all [facility] Start: 1965 Sex assigned at Female [facility] Start: 10-03-2024 Gender identity Identifies as female gender (finding) [facility] Start: 10-03-2024 Sexual orientation Heterosexual (kimberly fenton) [facility] How often do you nee d to have someone help you when you read instructions, pamphlets, or other written material from your doctor or pharmacy [SILS] Sometimes [facility] How often do you nee d to have someone help you when you read instructions, pamphlets, or other written material from your doctor or pharmacy [SILS] Always [facility] Do you feel stress - tense, restless, nervous, or anxious, or unable to sleep at night because your mind is troubled all the time - these days [OSQ] To some extent [facility] Tobacco smoking stat us CTIS Unknown if ever smoked [facility] Work Phone: Functional Status Date Assessment Result Facility 03-06-2025 Total score [AUDIT-C] 0 03/06/20 9:54 PM EDT Leticia Cordero RN [facility] 12-30-2024 Total score [AUDIT-C] 0 12/31/19 25 9:24 PM EDT Sherice Ramachandran RN [facility] 12-29-2024 Total score [AUDIT-C] 0 12/30/19 8:49 PM EDT Valentino Gan RN [facility] 12-25-2024 Total score [AUDIT-C] 0 12/26/19 25 10:23 AM EDT Lorraine Castellon RN [facility] Clinical Notes 10-13-2017 to 06-06-2025 Telephone Encounter - Serina Benoit RN - 06/06/2025 10:17 AM EDTTelephone Encounter - Serina Benoit RN - 06/06/2025 10:17 AM EDTTelephone Encounter - Imani Maldonado - 06/05/2025 11:52 AM EDTAttachments Note Date & Type Note Facility 06-06-2025 Telephone encounter Note Noted; I feel as though this is renal related-has CKD stage 4 with hx of hyponatremia and psychogenic polydipsia. It appears she sees manifest clerk, Dr Wagner. Will request records. [facility] 06-06-2025 Miscellaneous Notes Noted; I feel as though this is renal related-has CKD stage 4 with hx of hyponatremia and psychogenic polydipsia. It appears she sees manifest clerk, Dr Wagner. Will request records. [phone], spoke to Tangela, and she is now scheduled to see Dr. Mahan 06/10/25. Tangela will fax progress note, labs, and medication list. Received Secure Hannah to cancel 05/30/[address] Saucedo that this might not be an appropriate appointment for Cardiology, and she should be seen by Dr. Mahan in [place]. [facility], [phone] to nurse Tangela, and cancelled 05/30/[address] Saucedo. Patient does not really want to come in, but I will call her back to try to schedule in [place]. documented in this encounter [facility] 06-05-2025 Telephone encounter Note [facility] [phone], spoke to Tangela, and she is now scheduled to see Dr. Mahan 06/10/25. Tangela will fax progress note, labs, and medication list. [facility] 05-28-2025 Telephone encounter Note Received Secure Hannah to cancel 05/30/[address] Saucedo that this might not be an appropriate appointment for Cardiology, and she should be seen by Dr. Mahan in [place]. Called [facility], [phone] to nurse Tangela, and cancelled 05/30/[address] Saucedo. Patient does not really want to come in, but I will call her back to try to schedule in [place]. [facility] 03-25-2025 Telephone encounter Note I left a message with the medical front desk coordinator and they said they would have Jessy's nurse call the office. [facility] 03-25-2025 Miscellaneous Notes I left a message with the medical front desk coordinator and they said they would have Jessy's nurse call the office. Is Jessy following outpatient with you or should she see someone in her intermediate facility? Name of Caller: Susan Contact Reason for Appointment: Susan is requesting a call back from the office to schedule a hospital follow up appointment for the patient. Please advise. Office Name: Behavioral Health Medication Refills need, if any: No Medication Name: None documented in this encounter [facility] 03-25-2025 Telephone encounter Note Is Jessy following outpatient with you or should she see someone in her intermediate facility? [facility] 03-25-2025 Telephone encounter Note Name of Caller: Susan Contact Reason for Appointment: Susan is requesting a call back from the office to schedule a hospital follow up appointment for the patient. Please advise. Office Name: Behavioral Health Medication Refills need, if any: No Medication Name: None [facility] 03-15-2025 Nurse Note Report called and given to the nurse at the facility [facility] 03-15-2025 Nurse Note Report called and given [...] Thigh: Fragile, Non-blanchable erythema noted. Wound tissue [place] and [place] with peeling skin. Pt denies pain. Kayley-wound skin intact. Buttock Right: [place] and [place] Tissue noted. Pt denies pain. Kayley-wound skin intact. Placing Wound Care/Ostomy RIVET HOLE MACHINE OPERATOR consult. Instructed pt on pressure injury prevention [...] care given). Prevention Measures in place, including: Niotaze sheet (replaced) with pillows/wedges (in place), Sacral [...] in place. PT/OT consult in place. D/W residential collections skin assessment, preventions, and interventions implemented. Will continue to follow pt. Please Voicera for any questions or concerns. HERNÁN Esquivel, RN documented in this encounter [facility] 03-15-2025 Miscellaneous Notes Patient Choice Patient Name: JESSY MCKEON Date of : 1965 All Providers Sent Referral Name: [facility] Phone: [phone] Address: [address] [place] [address] [place] [address] Discharge med list transmitted to [facility] via [employer] per TCC request. Confirmed pickup time of 1400 by transport [employer] Robert Whitehead at phone number [phone]. Location of facility drop off is [facility]. Facility notified via [employer], TCC notified on secure chat. DC order received for [facility], auth approved. Task CLASSIFICATION INSPECTOR to send MAR, DC paperwork and 7000 to [facility]. SW aware. RN aware. Patient aware. CM and CLASSIFICATION INSPECTOR arranging transport. Care Management Progress Note Short Medical why still here: Nephrology following. Got auth for [facility], plan to send today. Will follow. Planned Discharge Disposition: Longterm Facility Barriers/Today we still Wait: Facility pre-cert Length of Stay (Days): 8 [facility] [place]. Secure chat Dr Hayes, says patient will be ready tmw. Care Management Progress Note Short Medical why still here: Nephrology following. Creatinine 03/13, 2.55. Awaiting todays labs. Plan to go to [facility] [place], auth start 03/11. Will follow. Planned Discharge Disposition: Longterm Facility Barriers/Today we still Wait: Facility pre-cert, Clinical stability, Cellar Pumper recommendations (comment) Length of Stay (Days): 7 GMLOS: 2.6 Care Management Progress Note Short Medical why still here: Nephrology following. Na 132. Creatinine 2.55 was 2.23. [facility] [place], auth started 03/11. Will follow. Planned Discharge Disposition: Longterm Facility Barriers/Today we still Wait: Cellar Pumper recommendations (comment), Clinical stability, Facility pre-cert Length of Stay (Days): 6 GMLOS: 2.6. Care Management Progress Note Short Medical why still here: Lasix PO. Na 132 from 03/11. Plan to go to [facility]. Auth started yesterday, 03/11. Will follow. Planned Discharge Disposition: Longterm Facility Barriers/Today we still Wait: Clinical stability, Cellar Pumper recommendations (comment) Length of Stay (Days): 5 GMLOS: 2.6 7000 created in [place] per TCC request. Facility notified via [employer]. Task CLASSIFICATION INSPECTOR to send 7000 to [facility]. Secure chat Dr Tucker to complete IRASEMA. Secure chat from Dr Tucker to start auth. Told [facility] to start auth. Care Management Progress Note Short Medical why still here: Nephrology following. Na 132. Lasix PO. Plan to go to [facility]. Secure chat Dr Tucker for anticipated DC date. Planned Discharge Disposition: Longterm Facility Barriers/Today we still Wait: Clinical stability Length of Stay (Days): 4 GMLOS: 2.6 TCC informed SW that she received a call from someone at . SW called karina back and it was Rn from [facility]- [phone]. Pt had been active with them and was wondering if pt needed HHC at [place]. ANTON updated RN that pt will be going to a SNF at al. ANTON updated TCC. Accepted into [facility]. Patient is happy. [facility] [facility] living in [place]- [phone]. SW called [facility] and spoke with with MELODY. Per MELODY- pt's baseline is min assist. Staff gave her her meds. Staff assisted with bathing, etc. Pt did not amb-per her choice. ANTON updated AL that pt will go to an ECF at al. ANTON will follow and updated AL on facility at al. Referral placed to SNF - [facility] per TCC request. Await review and response regarding ability to accept. TCC notified. Care Management Progress Note Short Medical why still here: Na 125, was 128 and 121 on admission. PT/OT ordered. PT recommended SNF. CM in ER stated patient wanted to go to [facility]. Task CLASSIFICATION INSPECTOR to make a referral to [facility]. Patient from [place]. SW aware. Planned Discharge Disposition: Longterm Facility Barriers/Today we still Wait: Administering IV medications, Clinical stability Length of Stay (Days): 1 GMLOS: No GMLOS Documented CM met with pt at bedside in the ED. CM saw that pt was at [facility] in January - This CM asked pt is she had an idea where she would want to dicharge to - would she want to gfo back to [facility] or select from a new list which I could print for her. Pt verbalized wanting to return to [facility]. Will need therapy evals. documented in this encounter [facility] 03-15-2025 Progress note Formatting of t his note might be different from the original. Patient Choice Patient Name: JESSY MCKEON Date of : 1965 All Providers Sent Referral Name: [facility] Phone: [phone] Address: [address] [place] [address] [facility] 03-15-2025 Progress note Formatting of t his note might be different from the original. Discharge med list transmitted to [facility] via [employer] per TCC request. Confirmed pickup time of 1400 by transport Veniti Treyholly at phone number [phone]. Location of facility drop off is [facility]. Facility notified via [facility], TCC notified on secure chat. [facility] 03-15-2025 History of Present illness Narrative Images from the original note were not included. Nephrology Progress Note Patient: Jessy Mckeon Room number: W5-526/[id number] A Date of Admit: 03/06/2025 LOS: 8 days Admitting physician: Clara Wyatt DO Referring physician: Ashley Hayes MD Outpatient Breakfast Supervisor: Dr. Wagner Assessment/Plan: 60F with history of Asperger syndrome, [...] Please text/call/page with any questions or concerns. aKvon Galo, Nephrology [facility] ([facility]) Pager: [phone] Office Office Electronically Signed on 03/15/2025 at 11:22 AM Subjective: Patient resting comfortably this morning. No distress. Expresses that she would like long-term placement. Past Medical History: Medical History[1] Medications: MAR reviewed. Scheduled Meds[2] Continuous Meds[3] Review of Systems: All other ROS negative except those noted above. Physical Exam: Vitals: 03/14/25 0816 03/14/25 1959 03/15/25 0453 03/15/25 0833 BP: 132/71 123/89 124/73 [...] (H) 10/04/2024 Lab Results Component Value Date [id number] 689 03/08/2025 FOLATE 3.7 (L) 03/08/2025 Recent [...] 5.5 (H) 03/15/2025 No components found for: "GLOU16D" Diagnostic Studies: Personally reviewed available data [labs, [...] Oral, Nightly [3] Hospitalist Progress Note 03/15/2025 [phone]: Please page me ([phone]) for patient care issues. [phone]: Please page [facility] Hospitalist for any issues. Subjective: Admit Date: 03/06/2025 PCP: Edith Pierce MD Room#: W5-526/W5-526 A Brief Hospital course: Jessy is a 60 y.o. female with past medical history below who presents with complaints of generalized weakness and an inability to care for self. Patient was just discharged about 1.5 months ago from here with similar presentation, was discharged to halfway facility. Patient states that she is not [...] Adult diet Regular; Low Sodium (2 gm) @WPUO0WIBEVW@ 24HR INTAKE/OUTPUT: Intake/Output Summary (Last 24 hours) [...] Pita Jara Mobile Relation: Parent Preferred language: Faroese Fiberglass Quality Technician needed? No Secondary Emergency Contact: Mamadou Jara Relation: Father Total time spent including zvdy-qy-olkl and rpv-yloc-cp-face: More than 31 minutes Ashley Hayes MD Division of Hospitalist Medicine Inpatient Medical Services/[facility] PAGER: Gilbert trevizo [1] Past Medical History: [...] mg, Oral, Nightly Hospitalist Progress Note 03/14/[phone]: Please page me ([phone]) for patient care issues. [phone]: Please page [facility] Hospitalist for any issues. Subjective: Admit Date: 03/06/2025 PCP: Edith Pierce MD Room#: [id number]/[id number] A Brief Hospital course: Jessy is a 60 y.o. female with past medical history below who presents with complaints of generalized weakness and an inability to care for self. Patient was just discharged about 1.5 months ago from here with similar presentation, was discharged to halfway facility. Patient states that she is not [...] Adult diet Regular; Low Sodium (2 gm) @ETOA7OUEPAW@ 24HR INTAKE/OUTPUT: Intake/Output Summary (Last 24 hours) [...] and recommending SNF. TCC sent referral to [facility]. Auth pending - AM labs Extended Emergency Contact Information Primary Emergency Contact: Pita Jara Mobile Relation: Parent Preferred language: Faroese Fiberglass Quality Technician needed? No Secondary Emergency Contact: Mamadou Jara Relation: Father Total time spent including efjl-qe-jztf and ntl-hhva-lc-face: 35 minutes Ashley Hayes MD Division of Hospitalist Medicine Inpatient Medical Services/[facility] PAGER: Epic chat [1] Past Medical History: [...] loss Fluid Accumulation: Mild (BLE Edema: Non-pitting) Gas Meter Checker Strength: Not Performed 03/13/25 Interval History: No [...] bipolar disorder who arrived by EMS from [facility] after falling off of her couch with another fall and found to have severe hyponatremia; Likely combination of hypervolemic hyponatremia and elevated solutes from CKD. Documented history of diabetes insipidus however more recent issue has been hyponatremia. Multiple meds that could cause SIADH however unlikely with dilute urine studies per nephro. Carsonix held w/ up trending sCr. Continues a [...] History: Independent of feeding and Resides at [facility] Level of Consciousness: Alert; Orientation Level: Oriented [...] (250 lb) % Weight Change (Calculated): -8 [place] Body Weight (lbs) (Calculated): 115 lbs [place] Body Weight (Kg) (Calculated): 52 kg % [place] Body Weight (Calculated): 214.8 % BMI (kg/m2) [...] Zehra Gomez MS, RD, LD Contact: or [employer] Chat (dial *[phone] from hospital phone) [1] bisacodyl, 10 mg, [...] physician: Clara Wyatt DO Referring physician: Estephania Teran MD Outpatient Breakfast Supervisor: Dr. Wagner Assessment/Plan: 60F with history of Asperger syndrome, [...] daily -Removed fluid restriction, will continue to residential child care counselor patient on limiting fluids -Holding lasix with uptrending Cr Thank you for this consult, we will continue to follow. Please call or page if any questions [facility] Pager: [phone] Office: [phone]. Office Subjective: Interval history/events: Patient resting comfortably this morning. No distress. Past Medical History: Medical History[1] Medications: MAR reviewed. Scheduled Meds[2] Continuous Meds[3] Review of Systems: All other ROS negative except those noted above. Physical Exam: Vitals: 03/13/25 2027 03/13/25 2158 03/14/25 0500 03/14/25 0816 BP: [...] (H) 10/04/2024 Lab Results Component Value Date [id number] 689 03/08/2025 FOLATE 3.7 (L) 03/08/2025 Recent [...] 5.3 (H) 03/14/2025 No components found for: "ICHQ87N" Diagnostic Studies: Personally reviewed available data [labs, [...] physician: Clara Wyatt DO Referring physician: Estephania Teran MD Outpatient Breakfast Supervisor: Dr. Wagner Assessment/Plan: 60F with history of Asperger syndrome, [...] Please call or page if any questions [facility] Pager: [phone] Office: [phone]. Office Subjective: Interval history/events: Patient resting comfortably [...] (H) 10/04/2024 Lab Results Component Value Date [id number] 689 03/08/2025 FOLATE 3.7 (L) 03/08/2025 Recent [...] 5.2 (H) 03/13/2025 No components found for: "NGQR80L" Diagnostic Studies: Personally reviewed available data [labs, [...] Oral, Nightly [3] Hospitalist Progress Note 03/13/2025 [phone]: Please page me ([phone]) for patient care issues. [phone]: Please page [facility] Hospitalist for any issues. Subjective: Admit Date: 03/06/2025 PCP: Edith Peirce MD Room#: W5-526/W5-526 A Interval History: No overnight issues. She is laying in bed resting comfortably. Denies chest pain or sob. No abdominal pain, nausea, vomiting. No fevers or chills. Adult diet Regular; Low Sodium (2 gm); 2000 ml @VFAF2BMWDIW@ 24HR INTAKE/OUTPUT: Intake/Output Summary (Last 24 hours) [...] and recommending SNF. TCC sent referral to [facility] [place]. Auth pending -renal panel daily per nephrology Extended Emergency Contact Information Primary Emergency Contact: Pita Jara Mobile Relation: Parent Preferred language: Faroese Fiberglass Quality Technician needed? No Secondary Emergency Contact: Mamadou Jara Relation: Father Estephania Teran MD Division of Hospitalist Medicine Inpatient Medical Services/[facility] PAGER: Epic chat [1] Past Medical History: [...] original note were not included. PHYSICAL THERAPY [facility] Treatment Note Name/MRN: Jessy Mckeon ([id number]) Date of : 1965 Age: 60 y.o. Room/Bed: [facility] A Discharge Recommendation: Longterm Facility Other: tbd Prior Level of Function [...] original note were not included. OCCUPATIONAL THERAPY [facility] Treatment Note Name/MRN: Jessy Mckeon ([id number]) Date of : 1965 Age: 60 y.o. Room/Bed: [facility] A Discharge Recommendation: Longterm Facility Prior Level of Function Prior Level of ADL Function: Required Assist Prior Level of Mobility: Required Assist; Device: None Prior Level of Transfers: Required Assist Assessment Pt supine in bed. Bed mobility and grooming task performed during OT session. OT recommend SNF at al. Subjective Bed mobility scooting pt up was [...] 2:56 PM EDT Hospitalist Progress Note 03/12/2025 [phone]: Please page wv ([phone]) for patient care issues. [phone]: Please page [facility] night Hospitalist for any issues. Subjective: Admit Date: 03/06/2025 PCP: Edith Pierce MD Room#: W5-526/W5-526 A Interval History: No overnight issues. She is laying in bed resting comfortably. Denies chest pain or sob. No abdominal pain, nausea, vomiting. No fevers or chills. Adult diet Regular; Low Sodium (2 gm); 2000 ml @KSEO0LGXIVQ@ 24HR INTAKE/OUTPUT: Intake/Output Summary (Last 24 hours) [...] and recommending SNF. TCC sent referral to [facility]. Auth pending -renal panel daily per nephrology Extended Emergency Contact Information Primary Emergency Contact: EstefaniPita Mobile Relation: Parent Preferred language: Faroese Fiberglass Quality Technician needed? No Secondary Emergency Contact: EstefaniMamadou gaines [place] Relation: Father Estephania Luna Teran MD Division of Hospitalist Medicine Inpatient Medical Services/[facility] PAGER: Epic chat [1] Past Medical History: [...] original note were not included. OCCUPATIONAL THERAPY [facility] Name/MRN: Jessy Mckeon ([id number]) Date: 03/12/2025 Pt is currently refusing OT [...] physician: Clara Wyatt DO Referring physician: Estephania Teran MD Outpatient Breakfast Supervisor: Dr. Wagner Assessment/Plan: 60F with history of Asperger syndrome, [...] Please call or page if any questions [facility] Pager: [phone] Office: [phone]. Office Subjective: Interval history/events: Patient resting comfortably [...] (H) 10/04/2024 Lab Results Component Value Date [id number] 689 03/08/2025 FOLATE 3.7 (L) 03/08/2025 Recent [...] 4.8 (H) 03/12/2025 No components found for: "QJMU99L" Diagnostic Studies: Personally reviewed available data [labs, [...] here with similar presentation, was discharged to halfway facility. Patient states that she is not [...] Low Sodium (2 gm); 2000 ml @IODETAILS@ @OBSK5JYNMUK@ Medications: Continuous Meds[1] Scheduled Meds[2] No results [...] Advance Directive: Full Code Tunde Tucker MD, [facility] Hospitalist [1] [2] bisacodyl, 10 mg, Rectal, Daily [...] DO Referring physician: Tunde Tucker MD Outpatient Breakfast Supervisor: Dr. Wagner Assessment/Plan: 60F with history of Asperger syndrome, [...] Please call or page if any questions [facility] Pager: [phone] Office: [phone]. Office Subjective: Interval history/events: Patient pleasant this [...] 3 completed shifts: In: 1959 (18.5 mL/kg) [P.O.:1959] Out: 4275 (40.3 mL/kg) [Urine:4275 (1.1 mL/kg/hr)] [...] (H) 10/04/2024 Lab Results Component Value Date [id number] 689 03/08/2025 FOLATE 3.7 (L) 03/08/2025 Recent [...] PHOS 4.6 03/11/2025 No components found for: "YSXI19O" Diagnostic Studies: Personally reviewed available data [labs, [...] original note were not included. PHYSICAL THERAPY [facility] Treatment Note Name/MRN: Jessy Mckeon ([id number]) Date of : 1965 Age: 60 y.o. Room/Bed: [facility] A Discharge Recommendation: Longterm Facility Other: tbd Prior Level of Function [...] for midline correction and core activation. When SKI BINDING FITTER AND REPAIRER decreased assist pt with retro balance. Unable [...] Timed Code Treatment Minutes: 17 Minutes (FA) SKI BINDING FITTER AND REPAIRER wore PPE in compliance with hospital guidelines and regulation when treating this patient. Aspen Mercer PTA Cosigned by Aspen Evans PT at 03/11/2025 3:00 PM EDT Images from the original note were not included. OCCUPATIONAL THERAPY [facility] Initial Evaluation Name/MRN: Jessy Mckeon ([id number]) Evaluation Date: 03/10/2025 Date of : 1965 Admission Date: 03/06/2025 9:43 PM Age: 60 y.o. Room/Bed: [facility] A Discharge Recommendation: Longterm Facility Assessment IMPRESSION: Pt presented from assisted [...] Morbid obesity with BMI of 45.0-49.9, adult ([facility]) 10/12/2017 Hypomagnesemia 10/12/2017 JOSE A (acute kidney injury) ([facility]) 10/12/2017 Chronic bilateral low back pain with bilateral sciatica 10/12/2017 Psychogenic polydipsia 10/12/2017 Hypertension 10/12/2017 Bipolar disorder ([facility]) 10/12/2017 Iron (Fe) deficiency anemia 10/09/2017 Primary [...] Oriented x4 Social/Functional History Patient admitted from [facility]. Assistive Equipment: none Prior Level of Function [...] Therapy Time Individual Co-Treatment Co-Evaluation Time In 48 Time Out 1004 Minutes 16 Meera Michel OT Patient's Occupational Therapy Plan of Care supervision is transferred to a [facility] Occupational Therapist. Goals and/or treatment [...] here with similar presentation, was discharged to halfway facility. Patient states that she is not [...] Low Sodium (2 gm); 2000 ml @IODETAILS@ @QDQS5HFJTFO@ Medications: Continuous Meds[1] Scheduled Meds[2] Recent Labs 03/08/25 022 WBC 7.8 HGB 8.4* PLT 228 Recent [...] Full Code Tunde Tucker [facility], [facility]] [2] divalproex, 250 mg, Oral, TID [...] days Referring physician: Tunde Tucker MD Outpatient Breakfast Supervisor: Madan Wagner MD ASSESSMENT/PLAN: Hyponatremia - chronic and near [...] (H) 10/04/2024 Lab Results Component Value Date [id number] 689 03/08/2025 FOLATE 3.7 (L) 03/08/2025 Lab [...] 03-07-2025 05:36:29 EDT by Hever Duncan Signed: Madan Wagner MD Nephrology [facility] ([facility]) Pager: [phone] Office Office [1] divalproex, 250 mg, Oral, [...] days Referring physician: Tunde Tucker MD Outpatient Breakfast Supervisor: Madan Wagner MD ASSESSMENT/PLAN: Hyponatremia - chronic and near [...] rash [facility] Cath DATA: LABS: Recent Labs 03/06/25232903/08/25 0226 WBC 8.0 7.8 HGB 8.8* 8.4* [...] (H) 10/04/2024 Lab Results Component Value Date [id number] 689 03/08/2025 FOLATE 3.7 (L) 03/08/2025 Lab Results Component Value Date COLORU Colorless 03/07/2025 CLARITYU Clear 03/07/2025 GLUCOSEU Normal 03/07/2025 BLOODU Negative 03/07/2025 UROBILINOGEN Normal 03/07/2025 Lab Results Component Value Date HEPAIGM Not Detected 08/25/2023 HEPBIGM Not Detected 08/25/2023 HEPCAB Not Detected 08/18/2024 No lab exists for component: POCGMD Recent Labs 03/06/252329 ALT <6 AST 26 ALKPHOS 55 BILITOT [...] 03-07-2025 05:36:29 EDT by Hever Duncan Signed: Madan Wagner MD Nephrology [facility] ([facility]) Pager: [phone] Office Office [1] divalproex, 250 mg, Oral, [...] here with similar presentation, was discharged to halfway facility. Patient states that she is not [...] Low Sodium (2 gm); 1500 ml @IODETAILS@ @[id number]@ Medications: Continuous Meds[1] Scheduled Meds[2] Recent Labs [...] Advance Directive: Full Code Tunde Tucker MD, [facility] Hospitalist [1] [2] divalproex, 250 mg, Oral, [...] Unable to assess Fluid Accumulation: Mild Extremities Gas Meter Checker Strength: Not Performed Chief Complaint Patient presents with Weakness, Gen Per EMS "she lives in assisted living and is unable to take care of herself, she said she wants to go to [facility] which is a [place]." [facility] was called for a lift [...] here with similar presentation, was discharged to halfway facility. Patient states that she is not [...] bipolar disorder who arrived by EMS from [facility] after falling off of her couch with [...] On: Kcal/kg Weight Used for Energy Requirements: [place] Weight for Energy Calculation (kg): 52 kg Total Energy Requirements (kcals/day): 0849-7992 (25-30 kcals/kg) Weight Used for Protein Requirements: [place] Weight in Kg Used for Protein Requirements: [...] Current Body Weight: 112 kg (247 lb) [place] Body Weight (lbs) (Calculated): 115 lbs [place] Body Weight (Kg) (Calculated): 52 kg % [place] Body Weight (Calculated): 214.8 % BMI (kg/m2) [...] Zehra Gomez MS, RD, LD Contact: or [employer] Chat (dial *[phone] from hospital phone) [1] Past Medical History: [...] here with similar presentation, was discharged to halfway facility. Patient states that she is not [...] Low Sodium (2 gm); 1500 ml @IODETAILS@ @IDFT7RKEJQA@ Medications: Continuous Meds[1] Scheduled Meds[2] Recent Labs 03/06/25232903/08/25 0226 WBC 8.0 7.8 HGB 8.8* 8.4* [...] Advance Directive: Full Code Tunde Tucker MD, [facility] Hospitalist [1] [2] divalproex, 250 mg, Oral, [...] be monitored and followed by the diet audiometric technician. AMANDA Pedersen Images from the original note were not included. PHYSICAL THERAPY [facility] Initial Evaluation Name/MRN: Jessy Mckeon ([id number]) Evaluation Date: 03/07/2025 Date of : 1965 Admission Date: 03/06/2025 9:43 PM Age: 60 y.o. Room/Bed: 40/40 Discharge Recommendation: Longterm Facility Other: tbd Assessment IMPRESSION: Pt presents [...] hematuria 06/28/2024 Chronic renal disease, stage IV ([facility]) 06/20/2023 Chronic kidney disease, stage 3b ([facility]) 06/20/2023 Urinary tract infection without hematuria, site unspecified 03/17/2023 Urinary tract infection 03/16/2023 Depression 12/23/2021 Localized edema 01/11/2019 Schizoaffective disorder ([facility]) ([facility]) 06/05/2018 Suicidal ideations 05/22/2018 Chronic schizoaffective disorder ([facility]) 05/22/2018 Acute gastric ulcer without hemorrhage or perforation 03/28/2018 Diverticulosis of large intestine without diverticulitis 03/28/2018 Chronic antral gastritis 03/28/2018 First degree hemorrhoids 03/28/2018 Dyspnea 03/03/2018 Urinary retention 03/02/2018 Chest pain 02/14/2018 Hyponatremia 02/12/2018 Hypothyroidism 10/12/2017 Morbid obesity with BMI of 45.0-49.9, adult ([facility]) 10/12/2017 Hypomagnesemia 10/12/2017 JOSE A (acute kidney injury) ([facility]) 10/12/2017 Chronic bilateral low back pain with bilateral sciatica 10/12/2017 Psychogenic polydipsia 10/12/2017 Hypertension 10/12/2017 Bipolar disorder ([facility]) 10/12/2017 Iron (Fe) deficiency anemia 10/09/2017 Primary [...] Raw Score (No Stairs) : 6 JH-HLM -HLM Score: Bed activity Plan Pt would benefit [...] of Care supervision is transferred to a [facility] Physical Therapist. Goals and/or treatment [...] were not included. Hospitalist Progress Note/Prolonged services 03/07/20256995324-9330: Please page me ([phone]) for patient care issues. [phone]: Please page [facility] night Hospitalist for any issues. [...] DO Division of Hospital Medicine Inpatient Medical Services/[facility] PAGER: [phone] documented in this encounter [facility] 03-15-2025 Progress note Formatting of t his note might be different from the original. DC order received for [facility], auth approved. Task CLASSIFICATION INSPECTOR to send MAR, DC paperwork and 7000 to [facility]. SW aware. RN aware. Patient aware. CM and CLASSIFICATION INSPECTOR arranging transport. [facility] 03-15-2025 Note [facility] 03-15-2025 Hospital course Narrative Discharge Summary Jessy [...] here with similar presentation, was discharged to halfway facility. Patient states that she is not [...] Adult diet Regular; Low Sodium (2 gm) @NYYM8QSTUDG@ 24HR INTAKE/OUTPUT: Intake/Output Summary (Last 24 hours) [...] SIGNIFICANT DIAGNOSTIC STUDIES: XR chest 1 view [[id number]] Collected: 03/06/252311 Order Status: Completed Updated: 03/06/252312 Narrative: [facility] 1965 [id number] Ex[facility] Date/Time: 03/06/2025 23:02 Procedure: XR CHEST [...] PM EDT XR elbow 3+ views left [[id number]] Collected: 03/06/25645 Order Status: Completed Updated: 03/06/25647 Narrative: Patient Name: JESSY MCKEON : 1965 [...] AM EDT XR knee 3 views left [[id number]] Collected: 03/06/25643 Order Status: Completed Updated: 03/06/25646 Narrative: Patient [...] EDT XR pelvis 1 or 2 views [[id number]] Collected: 03/06/25643 Order Status: Completed Updated: 03/06/25644 [...] not crush or chew. ergocalciferol 1.25 MG (67063 UT) capsule Commonly known as: Vitamin D-2 IFEREX 150 PO lamoTRIgine 150 MG tablet Commonly known as: LaMICtal Take 1 tablet (150 mg) by mouth Nightly. MELATONIN PO miconazole 2 % powder Commonly known as: Micotin Apply topically 2 times daily. nystatin 152902 UNIT/GM powder Commonly known as: Mycostatin Apply topically 2 times daily. Apply to groin omeprazole [address] capsule Commonly known as: PriLOSEC Take 1 capsule (40 mg) by mouth every morning (before breakfast). Do not crush or chew. polyethylene glycol (PEG) 3350 17 g packet Commonly known as: Miralax Retacrit 60902 UNIT/ML injection Generic drug: epoetin molly-epbx risperiDONE [...] Complexity: follow up within 7-14 calendar days (90641) [] Severe Complexity: follow up within 7 calendar days (01590) FOLLOW UP TESTING, PENDING RESULTS OR REFERRALS AT TRANSITIONAL CARE VISIT: [] Yes [] No PENDING STUDIES: DISPOSITION: Skilled Facility FACILITY/HOME CARE AGENCY NAME: Follow up with Jorge Miller MD [address] [phone] Schedule an appointment as soon as possible for a visit in 1 week(s) Fran Bowers MD [address] [address] Schedule an appointment as soon as possible [...] 03/15/2025, 10:55 AM documented in this encounter [facility] 03-15-2025 Progress note Formatting of t his note might be different from the original. Care Management Progress Note Short Medical why still here: Nephrology following. Got auth for [facility] [place], plan to send today. Will follow. Planned Discharge Disposition: Longterm Facility Barriers/Today we still Wait: Facility pre-cert Length of Stay (Days): 8 GMLOS: 2.6 [facility] 03-14-2025 Progress note Formatting of t his note might be different from the original. [facility] approved. Secure chat Dr Hayes, says patient will be ready tmw. [facility] 03-14-2025 Progress note Formatting of t his note might be different from the original. Care Management Progress Note Short Medical why still here: Nephrology following. Creatinine 03/13, 2.55. Awaiting todays labs. Plan to go to [facility] start 03/11. Will follow. Planned Discharge Disposition: Longterm Facility Barriers/Today we still Wait: Facility pre-cert, Clinical stability, Cellar Pumper recommendations (comment) Length of Stay (Days): 7 GMLOS: 2.6 T [facility] 03-13-2025 Progress note Formatting of t his note might be different from the original. Care Management Progress Note Short Medical why still here: Nephrology following. Na 132. Creatinine 2.55 was 2.23. Plan to to to [facility] started 03/11. Will follow. Planned Discharge Disposition: Longterm Facility Barriers/Today we still Wait: Cellar Pumper recommendations (comment), Clinical stability, Facility pre-cert Length of Stay (Days): 6 GMLOS: 2.6. [facility] 03-12-2025 Progress note Formatting of t his note might be different from the original. Care Management Progress Note Short Medical why still here: Claudia PO. Na 132 from 03/11. Plan to go to [facility]. Auth started yesterday, 03/11. Will follow. Planned Discharge Disposition: Longterm Facility Barriers/Today we still Wait: Clinical stability, Cellar Pumper recommendations (comment) Length of Stay (Days): 5 GMLOS: 2.6 [facility] 03-11-2025 Progress note Formatting of t his note might be different from the original. 7000 created in HENS per TCC request. Facility notified via Careport. [facility] 03-11-2025 Progress note Formatting of t his note might be different from the original. Task CLASSIFICATION INSPECTOR to send 7000 to [facility]. Secure chat Dr Tucker to complete IRASEMA. T [facility] 03-11-2025 Nurse Note Wound Care consulted for [...] Thigh: Fragile, Non-blanchable erythema noted. Wound tissue [place] and Red with peeling skin. Pt denies pain. Kayley-wound skin intact. Buttock Right: [place] and Red Tissue noted. Pt denies pain. Kayley-wound skin intact. Placing Wound Care/Ostomy RIVET HOLE MACHINE OPERATOR consult. Instructed pt on pressure injury prevention [...] care given). Prevention Measures in place, including: Niotaze sheet (replaced) with pillows/wedges (in place), Sacral [...] in place. PT/OT consult in place. D/W residential collections skin assessment, preventions, and interventions implemented. Will continue to follow pt. Please Voicera for any questions or concerns. HERNÁN Esquivel, RN [facility] 03-11-2025 Progress note Formatting of t his note might be different from the original. Secure chat from Dr Tucker to start auth. Told [facility] to start auth. T [facility] 03-11-2025 Progress note Formatting of t his note might be different from the original. Care Management Progress Note Short Medical why still here: Nephrology following. Na 132. Lasix PO. Plan to go to [facility]. Secure chat Dr Tucker for anticipated DC date. Planned Discharge Disposition: Longterm Facility Barriers/Today we still Wait: Clinical stability Length of Stay (Days): 4 GMLOS: 2.6 [facility] 03-08-2025 Consult note Associated Order (s): IP CONSULT TO PSYCHIATRY Department of Psychiatry Consult Service Resident Consult Note Reason for Consult: "bipolar" Requesting Physician: Tunde Tucker MD CHIEF COMPLAINT: Chief Complaint Patient presents with Weakness, Gen Per EMS "she lives in assisted living and is unable to take care of herself, she said she wants to go to [facility] which is [place]." [facility] was called for a lift [...] well on her current medication regimen at [facility]. She denies depressed or anxious mood, [...] EDSON, schizoaffective disorder Past psychiatric medications include: [place], Klonopin, Effexor (hives) PAST MEDICAL/SURGICAL HISTORY: Past [...] QT Interval 414 QTC Interval 446 P [place] 12 QRS [place] 16 T Wave [place] 14 CA Interval 166 Impression Sinus rhythm [...] tablet 250 mg 250 mg Oral TID WC Clara Wyatt DO 250 mg at 03/08/25 1153 DULoxetine (Cymbalta) DR capsule 60 mg 60 mg Oral Daily Clara Wyatt DO 60 mg at 03/08/25 0915 furosemide (Lasix) tablet 20 mg 20 mg Oral Daily Madan Wagner MD 20 mg at 03/08/25 1153 hydrOXYzine [...] Oral Nightly PRN Gloria Mario APRN - SOHAIL 6 mg at 03/07/25 2212 metoprolol tartrate (Lopressor) tablet 100 mg 100 [...] 10 mg 10 mg Oral Daily Clara Wyatt DO 10 mg at 03/08/25 0916 sodium [...] findings and plan. Patient known to this rfp writer, complicated medical issues over the last 20 years which are further complicated by polypharmacy psychiatric medication regimen. She has required ECT in past as well. Does tend to do best with modest po fluid restriction and with firm limit setting on increased use of sedatives and pain medications. Will resume Rx as outlined. Discharge to ECF anticipated when medically appropriate. Fran Bowers MD [facility] [employer] Phone: 03-08-2025 Consult note Associated Order (s): IP CONSULT TO PSYCHIATRY Department of Psychiatry Consult Service Resident Consult Note Reason for Consult: "bipolar" Requesting Physician: Tunde Tucker MD CHIEF COMPLAINT: Chief Complaint Patient presents with Weakness, Gen Per EMS "she lives in assisted living and is unable to take care of herself, she said she wants to go to [facility] which [facility] [place]." [facility] was called for a lift [...] well on her current medication regimen at [facility]. She denies depressed or anxious mood, [...] EDSON, schizoaffective disorder Past psychiatric medications include: [place], Klonopin, Effexor (hives) PAST MEDICAL/SURGICAL HISTORY: Past [...] QT Interval 414 QTC Interval 446 P [place] 12 QRS [place] 16 T Wave [place] 14 CA Interval 166 Impression Sinus rhythm [...] tablet 20 mg 20 mg Oral Daily Madan Wagner MD 20 mg at 03/08/25 1153 hydrOXYzine pamoate (Vistaril) capsule 25 mg 25 mg Oral q6h PRN Paul Anderson DO 25 mg at 03/07/252211 lamoTRIgine (LaMICtal) tablet 150 mg 150 mg Oral Nightly Clara Wyatt DO 150 mg at 03/07/252036 levothyroxine (Synthroid, Levoxyl) tablet 125 mcg 125 mcg Oral Daily Clara Wyatt DO 125 mcg at 03/08/25 0915 melatonin tablet 6 mg 6 mg Oral Nightly PRN Gloria Mario APRN - SOHAIL 6 mg at 03/07/252211 metoprolol tartrate (Lopressor) [...] 10 mg 10 mg Oral Daily Clara Wyatt DO 10 mg at 03/08/25 0916 sodium [...] findings and plan. Patient known to this rfp writer, complicated medical issues over the last 20 [...] than typical baseline. Monitor for now Signed: Madan aWgner MD Nephrology [facility] ([facility]) Pager: [phone] Office Office Reason for Consult Reason for [...] call with any questions. Oleg Weems DO [facility] ([facility]) History of Present [...] Cath LABS Labs reviewed. Recent Labs 03/06/25232903/08/25 0226 WBC 8.0 7.8 HGB 8.8* 8.4* [...] 0 min Stress: Stress Concern Present (12/30/2024) [place] Prospect of Occupational Health - Occupational Stress Questionnaire Feeling of Stress : To some extent Social Connections: Socially Isolated (12/30/2024) Social Connection and Isolation Panel [NHANES] Frequency of Communication with Friends and Family: More than three times a week Frequency of Social Gatherings with Friends and Family: More than three times a week Attends Evangelical Services: Never Active Member of Clubs or [...] control Venlafaxine Hives documented in this encounter [facility] 03-08-2025 Progress note Formatting of t his note might be different from the original. [facility] informed SW that she received a call from someone at . SW called number back and it was Rn from [facility]- [phone]. Pt had been active with them and was wondering if pt needed HHC [place]. SW updated RN that pt will be going to a SNF at al. SW updated TCC. [facility] 03-08-2025 Hospital Discharge instructions Pastora Garner RN [...] Unit/Room#: W5-526/W5-526 A Discharging Unit Phone Number: [phone] Emergency Contact: Extended Emergency Contact Information Primary Emergency Contact: EstefaniPita [employer] Relation: Parent Preferred language: Faroese Fiberglass Quality Technician needed? No Secondary Emergency Contact: Mamadou Jara [place] Relation: Father Past Surgical History: Past Surgical [...] Morbid obesity with BMI of 45.0-49.9, adult ([facility]) Hypomagnesemia JOSE A (acute kidney injury) ([facility]) Chronic bilateral low back pain with bilateral sciatica Primary hypothyroidism Psychogenic polydipsia Pneumonia Hypertension Bipolar disorder (HCC) Lung infiltrate on [...] Minimal assistance Toileting Total assistance Feeding Independent [place] Minimal assistance Med Delivery no Wound Care [...] Date: 03/07/25 Discharging to Facility/ Agency Name: [facility] Address: [address] [place] [address] Fax: Dialysis Facility (if applicable) Name: Address: Dialysis Schedule: Phone: Fax: Quality Assurance Supervisor Body/Ocean Export Account Manager signature: ICIAN SECTION Name: Jessy Mckeon Prognosis: good Condition at Discharge: stable Rehab Potential (if transferring to Rehab): good Recommended Labs or Other Treatments After Discharge: CBC, CMP, F/U with Nephrology, Psychiatry The individual is being admitted to a nursing facility directly from an [facility] or a unit of a hospital that is not operated by or licensed by [facility] under section 5119.14 or 5160-3-15.1 5 The individual requires the level of services provided by a nursing facility for the condition for which he or she was treated in the hospital and, Physician Certification: I certify the above information and transfer of Jessy Mckeon is necessary for the continuing treatment of the diagnosis listed and that she requires halfway facility for less than 30 days. Update Admission H&P: No change in H&P PHYSICIAN SIGNATURE: documented in this encounter [facility] 03-08-2025 Progress note Formatting of t his note might be different from the original. Accepted into [facility]. Patient is happy. [facility] 03-08-2025 Progress note Formatting of t his note might be different from the original. Pt from [facility] assisted living in [place]- [phone]. SW called [facility] and spoke with with DON. Per DON- pt's baseline is min assist. Staff gave her her meds. Staff assisted with bathing, etc. Pt did not amb-per her choice. SW updated AL that pt will go to an ECF at al. ANTON will follow and updated AL on facility at al. [facility] 03-08-2025 Consult note Formatting of th is [...] than typical baseline. Monitor for now Signed: Madan Wagner MD Nephrology [facility] ([facility]) Pager: [phone] Office Office Reason for Consult Reason for [...] Please call with any questions. Oleg Weems, [facility] ([facility]) History of Present [...] tremor/myoclonus Skin: warm and dry, no rash Infnate Cath LABS Labs reviewed. Recent Labs 03/06/25232903/08/25 0226 WBC 8.0 7.8 HGB 8.8* 8.4* [...] ALBUMIN 3.0* -- -- -- Recent Labs 03/06/252329 ALT <6 AST 26 ALKPHOS 55 BILITOT [...] 0 min Stress: Stress Concern Present (12/30/2024) [place] [employer] Occupational Health - Occupational Stress Questionnaire Feeling of Stress : To some extent Social Connections: Socially Isolated (12/30/2024) Social Connection and Isolation Panel [NHANES] Frequency of Communication with Friends and Family: More than three times a week Frequency of Social Gatherings with Friends and Family: More than three times a week Attends Evangelical Services: Never Active Member of Clubs or [...] and loss of muscle control Venlafaxine Hives [facility] 03-08-[address] [facility] via Careport per TCC request. Await review and response regarding ability to accept. TCC notified. [facility] 03-08-2025 Progress note Formatting of t his note might be different from the original. Referral placed to [facility] via Careport per TCC request. Await review and response regarding ability to accept. TCC notified. Electronically signed by [facility] Lukasz Mcdaniels [facility] 03-08-2025 Progress note Formatting of t his note might be different from the original. Care Management Progress Note Short Medical why still here: Na 125, was 128 and 121 on admission. PT/OT ordered. PT recommended SNF. CM in ER stated patient wanted to go to [facility]. Task CLASSIFICATION INSPECTOR to make a referral to [facility]. [place] SW aware. Planned Discharge Disposition: Longterm Facility Barriers/Today we still Wait: Administering IV medications, Clinical stability Length of Stay (Days): 1 GMLOS: No GMLOS Documented T [facility] 03-07-2025 Progress note Formatting of t his note might be different from the original. CM met with pt at bedside in the ED. CM saw that pt was at [facility] in January - This CM asked pt is she had an idea where she would want to dicharge to - would she want to gfo back to [facility] or select from a new list which I could print for her. Pt verbalized wanting to return to [facility]. Will need therapy evals. [facility] 03-07-2025 History and physical note Attending History [...] here with similar presentation, was discharged to halfway facility. Patient states that she is not [...] 0 min Stress: Stress Concern Present (12/30/2024) [place] Prospect of Occupational Health - Occupational Stress Questionnaire Feeling of Stress : To some extent Social Connections: Socially Isolated (12/30/2024) Social Connection and Isolation Panel [NHANES] Frequency of Communication with Friends and Family: More than three times a week Frequency of Social Gatherings with Friends and Family: More than three times a week Attends Evangelical Services: Never Active Member of Clubs or [...] for self Apparently patient was at a halfway facility that was still not providing an [...] Pita Jara Mobile Relation: Parent Preferred language: Faroese Fiberglass Quality Technician needed? No Secondary Emergency Contact: Mamadou Jara Relation: Father Clara Hong DO Edmundo Division of Hospital Medicine Inpatient Medical Services/[facility] [1] Past Medical History: Diagnosis Date Acid [...] stated as uncontrolled (HCC) Urinary incontinence nightly Ogone Work Phone: 03-07-2025 Note [facility] [employer] [facility] 03-07-2025 History and physical note Attending History [...] here with similar presentation, was discharged to halfway facility. Patient states that she is not [...] 0 min Stress: Stress Concern Present (12/30/2024) [place] [employer] of Occupational Health - Occupational Stress Questionnaire Feeling of Stress : To some extent Social Connections: Socially Isolated (12/30/2024) Social Connection and Isolation Panel [NHANES] Frequency of Communication with Friends and Family: More than three times a week Frequency of Social Gatherings with Friends and Family: More than three times a week Attends Evangelical Services: Never Active Member of Clubs or [...] for self Apparently patient was at a halfway facility that was still not providing an [...] Pita Jara [employer] Relation: Parent Preferred language: Faroese Fiberglass Quality Technician needed? No Secondary Emergency Contact: Mamadou Jara Relation: Father Clara Wyatt DO Division of Hospital Medicine Inpatient Medical Services/[facility] [1] Past Medical History: Diagnosis Date Acid [...] Urinary incontinence nightly documented in this encounter [facility] 03-06-2025 Emergency department Note Emergency Department Encounter [facility] EMERGENCY DEPT Patient: Jessy Mckeon : 1965 [...] may need to go back to a mcc for additional support to do her daily [...] dictating provider for clarification.) Jay Marina DO [facility] Sarah Marina DO 03/07/25 0511 Emergency Department Encounter [facility] EMERGENCY DEPT Patient: Jessy Mckeon : 1965 [...] she said she wants to go to [facility] which is a [place] was called for a lift [...] may need to go back to her mcc for additional support. She denies any pain. [...] not crush or chew. EPOETIN MOLLY-EPBX (RETACRIT) 86416 UNIT/ML INJECTION Inject 10,000 Units under the skin. ERGOCALCIFEROL (VITAMIN D-2) 1.25 MG (41945 UT) CAPSULE Take 1.25 mg by mouth [...] Apply topically 2 times daily. NYSTATIN (MYCOSTATIN) 772635 UNIT/GM POWDER Apply topically 2 times daily. Apply to groin OMEPRAZOLE (PRILOSEC) [address] CAPSULE Take 1 capsule (40 mg) by mouth every morning (before breakfast). Do not crush or chew. POLYETHYLENE GLYCOL, PEG, 3350 (MIRALAX) 17 G PACKET Take by mouth. POLYSACCHARIDE IRON COMPLEX (IFEREX 150 PO) Take by mouth. Daily Oza-Hmc-Gpeotq RISPERIDONE (RISPERDAL) 3 MG TABLET Take 1 [...] 414 ms QTC Interval 446 ms P [place] 12 degrees QRS [place] 16 degrees T Wave [place] 14 degrees CA Interval 166 ms CBC [...] Department Physician in the absence of a matlab developer. see their note for interpretation of EKG. EMERGENCY DEPARTMENT COURSE and DIFFERENTIAL DIAGNOSIS/MDM: External Records Review: Reviewed Care Everywhere Social Determinants of Health: . Jessy Mckeon is a 60 y.o. female who presented to the emergency department for evaluation of frequent falls, difficulty with her ADLs, feels like she needs more care, need to go back to mcc for additional support. Not eating or drinking [...] MEDICATIONS: New Prescriptions No medications on file @[facility]([id number]:LAST:1)@ (Please note: Portions of this note were completed with a voice recognition program. Efforts were made to edit the dictations but occasionally words and phrases are mis-transcribed.) Form [id number].5-cn Raymon Talbot PA-C [facility] [1] Past Medical History: Diagnosis Date Acid [...] 0 min Stress: Stress Concern Present (12/30/2024) [place] Prospect of Occupational Health - Occupational Stress Questionnaire Feeling of Stress : To some extent Social Connections: Socially Isolated (12/30/2024) Social Connection and Isolation Panel [NHANES] Frequency of Communication with Friends and Family: More than three times a week Frequency of Social Gatherings with Friends and Family: More than three times a week Attends Evangelical Services: Never Active Member of Clubs or [...] 5:12 AM EDT documented in this encounter [facility] 03-06-2025 Physician Emergency department Note Emergency Department Encounter [facility] EMERGENCY DEPT Patient: Jessy Mckeon : 1965 [...] may need to go back to a mcc for additional support to do her daily [...] [facility] [employer] Sarah Marina DO 03/07/25 0511 [facility] 03-06-2025 Physician Emergency department Note Emergency Department Encounter [facility] EMERGENCY DEPT Patient: Jessy Mckeon : 1965 [...] she said she wants to go to [facility] which [facility] a [place] was called for a lift [...] may need to go back to her mcc for additional support. She denies any pain. [...] not crush or chew. EPOETIN MOLLY-EPBX (RETACRIT) 29636 UNIT/ML INJECTION Inject 10,000 Units under the skin. ERGOCALCIFEROL (VITAMIN D-2) 1.25 MG (54558 UT) CAPSULE Take 1.25 mg by mouth [...] Apply topically 2 times daily. NYSTATIN (MYCOSTATIN) 997024 UNIT/GM POWDER Apply topically 2 times daily. Apply to groin OMEPRAZOLE (PRILOSEC) [address] CAPSULE Take 1 capsule (40 mg) by mouth every morning (before breakfast). Do not crush or chew. POLYETHYLENE GLYCOL, PEG, 3350 (MIRALAX) 17 G PACKET Take by mouth. POLYSACCHARIDE IRON COMPLEX (IFEREX 150 PO) Take by mouth. Daily Uls-Mcn-Jhwdtu RISPERIDONE (RISPERDAL) 3 MG TABLET Take 1 [...] 414 ms QTC Interval 446 ms P [place] 12 degrees QRS [place] 16 degrees T Wave [place] 14 degrees CA Interval 166 ms CBC [...] Department Physician in the absence of a matlab developer. see their note for interpretation of EKG. EMERGENCY DEPARTMENT COURSE and DIFFERENTIAL DIAGNOSIS/MDM: External Records Review: Reviewed Care Everywhere Social Determinants of Health: . Jessy Mckeon is a 60 y.o. female who presented to the emergency department for evaluation of frequent falls, difficulty with her ADLs, feels like she needs more care, need to go back to m[facility] for additional support. Not eating or drinking [...] MEDICATIONS: New Prescriptions No medications on file @[facility]([id number]:LAST:1)@ (Please note: Portions of this note were completed with a voice recognition program. Efforts were made to edit the dictations but occasionally words and phrases are mis-transcribed.) Form [id number]-cn Raymon Talbot PA-C [facility] [1] Past Medical History: Diagnosis Date [...] 0 min Stress: Stress Concern Present (12/30/2024) [place] Prospect of Occupational Health - Occupational Stress Questionnaire Feeling of Stress : To some extent Social Connections: Socially Isolated (12/30/2024) Social Connection and Isolation Panel [NHANES] Frequency of Communication with Friends and Family: More than three times a week Frequency of Social Gatherings with Friends and Family: More than three times a week Attends Evangelical Services: Never Active Member of Clubs or [...] Marina DO at 03/07/2025 5:12 AM EDT [facility] 03-06-2025 Emergency department Note Called [facility] as they have not arrived for 0900 ETA. Dispatch states they will be here in 10 minutes. [facility] 03-06-2025 Emergency department Note Called [facility] [...] not crush or chew. EPOETIN MOLLY-EPBX (RETACRIT) 33676 UNIT/ML INJECTION Inject 10,000 Units under the skin. ERGOCALCIFEROL (VITAMIN D-2) 1.25 MG (83152 UT) CAPSULE Take 1.25 mg by mouth [...] Apply topically 2 times daily. NYSTATIN (MYCOSTATIN) 766528 UNIT/GM POWDER Apply topically 2 times daily. Apply to groin OMEPRAZOLE (PRILOSEC) [address] CAPSULE Take 1 capsule (40 mg) by mouth every morning (before breakfast). Do not crush or chew. POLYETHYLENE GLYCOL, PEG, 3350 (MIRALAX) 17 G PACKET Take by mouth. POLYSACCHARIDE IRON COMPLEX (IFEREX 150 PO) Take by mouth. Daily Hyb-Bvw-Xmrbet RISPERIDONE (RISPERDAL) 3 MG TABLET Take 1 [...] Physician EKG interpretation can be found in [facility] RADIOLOGY (Per Emergency Physician): X-ray left knee [...] AM PATIENT REFERRED TO: Edith Pierce MD [address] [place] [address] [address] [facility] [phone] As needed DISCHARGE MEDICATIONS: New Prescriptions No [...] 0 min Stress: Stress Concern Present (12/30/2024) [employer] - Occupational Stress Questionnaire Feeling of Stress : To some extent Social Connections: Socially Isolated (12/30/2024) Social Connection and Isolation Panel [NHANES] Frequency of Communication with Friends and Family: More than three times a week Frequency of Social Gatherings with Friends and Family: More than three times a week Attends Evangelical Services: Never Active Member of Clubs or [...] MD 03/06/25 0651 documented in this encounter [facility] 03-06-2025 Emergency department Note Upon arrival pt began to report that she was anxious and needed meds for anxiety "like klonopin." [facility] 03-06-2025 Physician Emergency department Note EMERGENCY DEPARTMENT [...] not crush or chew. EPOETIN MOLLY-EPBX (RETACRIT) 54172 UNIT/ML INJECTION Inject 10,000 Units under the skin. ERGOCALCIFEROL (VITAMIN D-2) 1.25 MG (67206 UT) CAPSULE Take 1.25 mg by mouth [...] Apply topically 2 times daily. NYSTATIN (MYCOSTATIN) 841839 UNIT/GM POWDER Apply topically 2 times daily. Apply to groin OMEPRAZOLE (PRILOSEC) [address] CAPSULE Take 1 capsule (40 mg) by mouth every morning (before breakfast). Do not crush or chew. POLYETHYLENE GLYCOL, PEG, 3350 (MIRALAX) 17 G PACKET Take by mouth. POLYSACCHARIDE IRON COMPLEX (IFEREX 150 PO) Take by mouth. Daily Fds-Bgw-Ghvbfn RISPERIDONE (RISPERDAL) 3 MG TABLET Take 1 [...] Physician EKG interpretation can be found in [facility] RADIOLOGY (Per Emergency Physician): X-ray left knee [...] AM PATIENT REFERRED TO: Edith Pierce MD [address] [place] [address] [address] [facility] [address] As needed DISCHARGE MEDICATIONS: New Prescriptions No [...] 0 min Stress: Stress Concern Present (12/30/2024) [place] [employer] - Occupational Stress Questionnaire Feeling of Stress : To some extent Social Connections: Socially Isolated (12/30/2024) Social Connection and Isolation Panel [NHANES] Frequency of Communication with Friends and Family: More than three times a week Frequency of Social Gatherings with Friends and Family: More than three times a week Attends Evangelical Services: Never Active Member of Clubs or [...] Last Year: No Jorge Roth MD 03/06/2551 [facility] 01-15-2025 Miscellaneous Notes Patient Choice Patient Name: JESSY MCKEON Date of : 1965 All Providers Sent Referral Name: Steffen Phone: [phone] Address: [address] [place] [address] [address] [place] [address] MAR & Discharge med list transmitted to SNF [facility] via Careport per TCC request. Auth obtained Discharge order placed to pt chart IRASEMA completed Transport set for 230 pm Secure chat with , ANTON, and physician office secretary to report facility has auth; dc orders to be placed and transport 230pm. SN notified pt of transport time. CM will follow through dc. from [facility], following up on pt request RTC, P# [phone]. Call to [facility] updated plan is for pt to go to [facility] under Skilled care and pt is discharging there now. Thanked for info. CM following through dc. [facility] notes patient is active with [facility]. [facility] referral to be sent to confirm services. Telephone Operator Chief following case for Discharge Needs. Response from [facility] in [facility]: After discussing her with the supervisors [...] as TCC confirms patient will DC to [facility]. Chart reviewed. PASR, State level review and IRASEMA completed. Transport under will call in Roundtrip for today. Pt auth remains pending for [facility], [facility]. Pt refused PT yesterday, therapy see today [...] Progress Note 01/13/25 0847 Rapid Rounds Attendance Quality Assurance Supervisor Body Planned Discharge Disposition SNF-[facility], AUTH pending Today we still await Attending completion of discharge workflow;Facility pre-cert This manager data reviewed and completed weekend CarePort task requesting [...] the weekend. [facility]. CM to assist with DC once itzel is back. Problem: Knowledge Deficit Goal: Patient/family/caregiver [...] Melton CM, asking for a return call. ANTON attempted to call AARON however had to leave asking for a return call. . SW follow up: Checked HENS. PASRR is now updated with correct first name for pt. Sent careport message to [facility], asking for update on auth and alerting PASRR is updated. Awaiting auth. . ANTON follow up: ANTON completed Will Call in Roundtrip. Will Call on calendar date 01/11. Awaiting insurance auth, for pt to go to [facility]. . Problem: Potential for Compromised Skin Integrity [...] Outcome: Not Progressing Updated Clinicals placed to [facility] via Careport per TCC request. Chart reviewed. ANTON noted PASRR level II review completed. Auth 01/08. PT/OT notes in chart today. Tasked CLASSIFICATION INSPECTOR to send updated clinical PT/OT today and IM yesterday to [facility]. Careport message to [facility] to report sending updated clinical shortly, please start auth and keep us posted. Plan [facility] pending INS auth. ANTON and CM will follow for dc planning. ANTON follow up: Checked HENS,Level II PASRR now completed. SW noticed pt first name was entered incorrectly into HENS. ANTON reached out to [facility], for advise on how to correct this mistake. advised to call [facility] , to request change and update with correct first name. [facility], updating Level II completed. Once we have [...] to SNF requesting to restart auth. . follow up: No call back from [facility]. sent e-mail to [facility], with request to change first name in HENS. Received e-mail response back, [facility], with [facility] cc'ing the [facility] help desk, asking help desk to assist in fixing error. . ANTON follow up: SW checked HENS, Level II [...] discharge needs are met Outcome: Not Progressing SARANYA asked to review [facility] for return of Level II Pasrr. [facility] states that it was referred on 01/02/25 [...] level or baseline comfort level Outcome: Progressing ANTON follow up: SW checked HEN, Level II is still pending. SW to place weekend TCC task to checked HENS over weekend, in case Level II gets completed later. SNF indicated they would be checking as well. Auth is good until 01/08. . SW follow up: Checked HENS Level II still pending. Received secure chat from [facility], they have auth [id number]. Pt needs to admit before 5/27 or will need new auth. SW attempted to call MELODY at [facility] with an update on discharge plans. DON out of office and vm full. Will try again . . ANTON follow up: Sent message via [employer]com[employer] to [facility], asking facility to go ahead and start auth. . N follow up: [facility] requesting PASRR/7000 in order to submit for auth. Pt is in OBS status, requires PASRR. Reviewed chart. Met with pt, to ask some of the PASRR questions. Pt diag with Renee, along with mental health issues. Pt denies any involvement with DD Board. Receives psychiatric care at [facility] outpatient Called [facility], confirmed with Renee Santo diag does fall under DEL CID diag in HENS. ANTON completed PASRR in [facility]. Pt requires a state Level II DEL [...] Progressing SW update: Received response back from [facility], they are able to accept pt. [facility] is FOC. SW met with pt, introduced self/role. Updated pt SNF is able to accept pt. Pt agreeable to discharge plan. . ANTON follow up: PT/OT saw pt this am. Both recomm SNF at discharge. ANTON e-mailed the PT/OT notes to the DON at [facility]. TCC met with pt, pt agreeable to SNF. Pt gave [facility] as FOC. SW placed careport referral to [facility]. Awaiting response. . Problem: Knowledge Deficit Goal: [...] SW from previous admission. Pt is from [facility] in [place]. SW attempted to call [facility] . DON unavailable. SW left message with medical office receptionist assistant, asking DON to call SW back. . [...] e-mail the PT/OT notes to MELODY at [email or web address], once we have notes. SW following. . Problem: Knowledge Deficit Goal: Patient/family/caregiver demonstrates understanding of disease process, treatment plan, medications, and discharge instructions Outcome: Progressing documented in this encounter [facility] 01-15-2025 Note Formatting of this n ote might be different from the original. Patient Choice Patient Name: JESSY MCKEON Date of : 1965 All Providers Sent Referral Name: Joy reynolds [place] Phone: [phone] Address: [address] [place] [address] [facility] 01-15-2025 Note Formatting of this n ote might be different from the original. Patient Choice Patient Name: JESSY MCKEON Date of : 1965 All Providers Sent Referral Name: Joy reynolds [place] Phone: [phone] Address: [address] [place] [address] [facility] 01-15-2025 Note Formatting of this n ote might be different from the original. MAR & Discharge med list transmitted to [facility] via Careport per TCC request. [facility] 01-15-2025 Note Formatting of this n ote might be different from the original. MAR & Discharge med list transmitted to [facility] via Careport per TCC request. [facility] 01-15-2025 Note Formatting of this n ote might be different from the original. Auth obtained Discharge order placed to pt chart IRASEMA completed Transport set for 230 pm Secure chat with ANTON BLANCHARD, and physician office secretary to report facility has auth; dc orders to be placed and transport 230pm. SN notified pt of transport time. CM will follow through dc. [facility] from [facility], following up on pt request RTC, P# [phone]. Call to [facility] updated plan is for pt to go to [facility] under Skilled care and pt is discharging there now. Thanked for info. CM following through dc. [facility] 01-15-2025 Note Formatting of this n ote might be different from the original. Auth obtained Discharge order placed to pt chart IRASEMA completed Transport set for 230 pm Secure chat with ANTON BLANCHARD, and physician office secretary to report facility has auth; dc orders to be placed and transport 230pm. SN notified pt of transport time. CM will follow through dc. from [facility], following up on pt request RTC, P# [phone]. Call to [facility] updated plan is for pt to go to [facility] under Skilled care and pt is discharging there now. Thanked for info. CM following through dc. [facility] 01-15-2025 Nurse Note RN attempted to call report to [facility]. Was told nobody was available to take report. RN left name, and unit number. [facility] 01-15-2025 Nurse Note RN attempted to call report to [facility]. Was told nobody was available to take [...] didn't want it any more, secure chatted clinical nurse occupational medicine 0549 Dr. Sullivan responded okay to leave out and check with day team Patient did not allow RN to turn her to look at her wounds during morning assessment. Sacral and L posterior wounds documented initially by ED nurse. Wound care consult placed. documented in this encounter [facility] 01-15-2025 Note [facility] 01-15-2025 Hospital course Narrative Discharge Summary Jessy [...] Intake/Output Summary (Last 24 hours) at 01/15/2025 0989 Last data filed at 01/15/2025 0504 Gross [...] apply ET mix TID and PRN, leave MARINE ERECTOR. Turn and reposition q 2 hr, waffle chair cushion -senna 2 tabs bid. Miralax every day, supp prn. - PT/OT on consult -> recommend SNF on discharge - Plan for [facility] to [facility], pending Auth - regarding fifth metacarpal fx left hand - maintain splint, will need to follow ortho outpt. SIGNIFICANT DIAGNOSTIC STUDIES: CT head wo IV contrast [[id number]]Collected: 12/30/241838Order Status: CompletedUpdated: 12/30/246Narrative: Patient Name: JESSY MCKEON : 1965 [facility]#: [id number] Exam Date/Time: 12/30/2024 18:23 Procedure: CT HEAD [...] PM EDT XR knee 4+ views left [[id number]]Collected: 12/30/24 1203Order Status: CompletedUpdated: 12/30/24 1206Narrative: Patient [...] XR foot 1 or 2 views left [[id number]]Collected: 12/29/24 0125Order Status: CompletedUpdated: 12/29/24 0129Narrative: Patient Name: JESSY MCKEON : 1965 Exam [...] EDT XR tibia fibula 2 views left [[id number]]Collected: 12/28/242204Order Status: CompletedUpdated: 12/28/242207Narrative: Patient Name: JESSY [...] PM EDT XR femur left 2+ views [[id number]]Collected: 12/28/242202Order Status: CompletedUpdated: 12/28/242205Narrative: Patient Name: JESSY [...] EDT XR pelvis 1 or 2 views [[id number]]Collected: 12/28/243Order Status: CompletedUpdated: 12/28/246Narrative: [facility] 1965 [id number] Exam Date/Time: 12/28/2024 21:11 Procedure: XR PELVIS [...] PM EDT XR hand 3+ views left [[id number]]Collected: 12/28/24 0610Order Status: CompletedUpdated: 12/28/24 0612Narrative: Patient Name: [facility]ESSY [facility]KEON : 1965 [id number] Exam Date/Time: 12/28/2024 05:15 Procedure: XR HAND [...] not crush or chew. ergocalciferol 1.25 MG (83728 UT) capsule Commonly known as: Vitamin D-2 [...] mg) by mouth 2 times daily. nystatin 998373 UNIT/GM powder Commonly known as: Mycostatin Apply topically 2 times daily. Apply to groin omeprazole [address] capsule Commonly known as: PriLOSEC Take 1 capsule (40 mg) by mouth every morning (before breakfast). Do not crush or chew. polyethylene glycol (PEG) 3350 17 g packet Commonly known as: Miralax Retacrit 88723 UNIT/ML injection Generic drug: epoetin molly-epbx risperiDONE [...] Your Medications These medications were sent to [facility]/pharmacy #[id number] [place] [phone] ferrous sulfate 325 (65 Fe) MG tablet miconazole 2 % powder senna-docusate sodium 8.6-50 MG tablet You can get these medications from any pharmacy Bring a paper prescription for each of these medications oxyCODONE 5 MG immediate release tablet DIET: Adult diet Regular ACTIVITY: Up with assist COMPLEXITY OF FOLLOW UP: [] Moderate Complexity: follow up within 7-14 calendar days (13091) [] Severe Complexity: follow up within 7 calendar days (12471) FOLLOW UP TESTING, PENDING RESULTS OR REFERRALS AT TRANSITIONAL CARE VISIT: [] Yes [] No PENDING STUDIES: DISPOSITION: Skilled Facility FACILITY/HOME CARE AGENCY NAME: Follow up with Edith Pierce MD [address] [place] [address] [address] [facility] [address] [facility] Wound Ostomy [address] [facility] [address] INSTRUCTIONS TO MA/SW: Please call [...] 01/15/2025, 1:06 PM documented in this encounter [facility] 01-15-2025 Note Formatting of this n ote might be different from the original. TCC notes patient is active with [facility]. [facility] referral to be sent to confirm services. Telephone Operator Chief following case for Discharge Needs. Response from [facility]: After discussing her with the supervisors [...] as TCC confirms patient will DC to [facility]. [facility] 01-15-2025 Note Formatting of this n ote might be different from the original. [facility] notes patient is active with [facility]. [facility] referral to be sent to confirm services. Telephone Operator Chief following case for Discharge Needs. Response from [facility]: After discussing her with the supervisors [...] confirms patient will DC to [facility] [place]. [facility] 01-15-2025 History of Present illness Narrative Images from the original note were not included. PHYSICAL THERAPY [facility] Treatment Note Name/MRN: Jessy Mckeon ([id number]) Date of : 1965 Age: 59 y.o. Room/Bed: W7727/W7727 A Discharge Recommendation: Longterm Facility Assessment Pt progressing slowly towards goals. [...] (1 unit TP, 1 unit FA) Suzette Perez PT Hospitalist Progress Note 01/15/2025 Subjective: Admit Date: 12/30/2024 PCP: Edith Pierce MD Room#: W7-727/W7-727 A BRIEF HOSPITAL COURSE: Jessy is a [...] History: Medical History[1] LABS: CBC: Recent Labs 01/13/2551701/14/2504 01/15/25 0455 WBC 5.2 4.9 4.4 RBC [...] Pita Jara Mobile Relation: Parent Preferred language: Faroese Fiberglass Quality Technician needed? No Secondary Emergency Contact: Mamadou Jara Relation: Father Osbaldokashif Hima Hayes MD Division of Hospitalist Medicine [facility] [1] Past Medical History: Diagnosis Date Acid [...] original note were not included. PHYSICAL THERAPY [facility] Name/MRN: Jessy Mckeon ([id number]) Date: 01/14/2025 Therapy tx session attempted. Pt states "I would like to nap". Despite education and encouragement pt refuses (3x) activity this date. Heather Costa PTA Cosigned by Suzette Perez PT at 01/14/2025 2:42 PM EDT Hospitalist Progress Note 01/14/2025 Subjective: Admit Date: 12/30/2024 PCP: Edith Pierce MD Room#: [facility] A BRIEF HOSPITAL COURSE: Jessy is a [...] Pita Jara Mobile Relation: Parent Preferred language: Faroese Fiberglass Quality Technician needed? No Secondary Emergency Contact: Mamadou Jara Relation: Father Trung Coppola DO Division of Hospitalist Medicine [facility] [1] Past Medical History: Diagnosis Date Acid [...] be monitored and followed by the diet audiometric technician. Blanca Jackson DT Hospitalist Progress Note [...] 250 241 268 BMP: Recent Labs 01/11/2513401/12/25 05001/13/25 0518 NA 127* 136 138 K 4.9 [...] Plan for [facility] to [facility] Auth - regarding fifth metacarpal fx left [...] Pita Jara Mobile Relation: Parent Preferred language: Faroese Fiberglass Quality Technician needed? No Secondary Emergency Contact: EstefaniMamadou Relation: Father Trung CoppolaDO Division of Hospitalist Medicine [facility] [1] Past Medical History: Diagnosis Date Acid [...] apply ET mix TID and PRN, leave MARINE ERECTOR. Turn and reposition q 2 hr, waffle chair cushion -senna 2 tabs bid. Miralax every day, supp prn. - PT/OT on consult -> recommend SNF on discharge - Plan for discharge to [facility] [place], pending Auth - regarding fifth metacarpal fx [...] Emergency Contact Information Primary Emergency Contact: EstefaniPita [employer] Relation: Parent Preferred language: Faroese Fiberglass Quality Technician needed? No Secondary Emergency Contact: Mamadou Jara [place] Relation: Father Trung Coppola DO Division of Hospitalist Medicine [facility] [1] Past Medical History: Diagnosis Date Acid [...] Intake/Output Summary (Last 24 hours) at 01/11/2025 0945 Last data filed at 01/11/2025 0640 Gross per 24 hour Intake -- Output 2150 ml Net -2150 ml Past Medical History: Medical History[1] LABS: CBC: Recent Labs 01/09/25 0501/10/252501/11/25 013 WBC 6.7 8.1 7.8 RBC 2.56* 2.54* 2.46* HGB 8.0* 7.8* 7.8* HCT 26.0* 25.4* 24.9* MCV 101.6* 100.0* 101.2* RDW 16.3* 16.5* 16.8* PLT 281 269 250 BMP: Recent Labs 01/09/25 0501/10/252501/11/25 013 NA 132* 131* 127* K 5.0 5.1 [...] Contact Information Primary Emergency Contact: Pita Jara [employer] Relation: Parent Preferred language: Faroese Fiberglass Quality Technician needed? No Secondary Emergency Contact: Oralia Jarary [place] Relation: Father Trung Coppola DO Division of Hospitalist Medicine [facility] [1] Past Medical History: Diagnosis Date Acid [...] Contact Information Primary Emergency Contact: Pita Jara [employer] Relation: Parent Preferred language: Faroese Fiberglass Quality Technician needed? No Secondary Emergency Contact: Oralia Jarary [place] Relation: Father Trung Coppola DO Division of Hospitalist Medicine Acute care [facility] [1] Past Medical History: Diagnosis Date [...] original note were not included. PHYSICAL THERAPY [facility] Treatment Note Name/MRN: Jessy Mckeon ([id number]) Date of : 1965 Age: 59 y.o. Room[facility]Bed: [facility] A Discharge Recommendation: Longterm Facility Prior Level of Function Prior Level [...] (No Stairs) : 10 JH-HLM -HLM Score: Static standing (1 or more minutes) [...] 01/29/25 Therapy Time Individual Co-treatment Time In 0917 Time Out 0946 Minutes 29 Timed Code Treatment Minutes: 29 Minutes (ANISA, TP) Bisi Pitts PTA Cosigned by Aspen Evans, PT at 01/09/2025 11:41 AM EDT Images from the original note were not included. OCCUPATIONAL THERAPY [facility] Treatment Note Name/MRN: Jessy Mckeon ([id number]) Date of : 1965 Age: 59 y.o. Room[facility]Bed: [facility] A Discharge Recommendation: Longterm Facility Equipment Needed: No Prior Level of [...] History: Medical History[1] LABS: CBC: Recent Labs 01/07/25 0525 01/08/25 0045 01/09/25 0511 WBC 7.8 7.5 6.7 [...] apply ET mix TID and PRN, leave MARINE ERECTOR. Turn and reposition q 2 hr, waffle [...] Contact Information Primary Emergency Contact: Pita Jara [employer] Relation: Parent Preferred language: Faroese Fiberglass Quality Technician needed? No Secondary Emergency Contact: EstefaniMamadou Relation: Father Trung CoppolaDO immanuel Division of Hospitalist Medicine [employer] care [facility] [1] Past Medical History: Diagnosis Date [...] continues eating well without issues. Likes the [employer] HP once daily. Bed weight 258.2# which is near her UBW of 250#. Estimated Daily Nutrient Needs: Energy Requirements Based On: Kcal/kg Weight Used for Energy Requirements: [place] Weight for Energy Calculation (kg): 52 kg Total Energy Requirements (kcals/day): 25-30 kcal/kg = 7423-2355 kcal/day Weight Used for Protein Requirements: [place] Weight in Kg Used for Protein Requirements: [...] bed, 08/09 260#, 06/14 276#, 09/04/23 245#) [place] Body Weight (lbs) (Calculated): 115 lbs [place] Body Weight (Kg) (Calculated): 52 kg % [place] Body Weight (Calculated): 258.1 % BMI (kg/m2) (Calculated): 45.7 Weight Adjustment For: No Adjustment BMI Categories: Obese Class 3 (BMI 40.0 or greater) Discharge Planning: No discharge needs at this time Flavia Wang RD Contact: *[phone] Hospitalist Progress Note 01/08/2025 Subjective: Admit Date: [...] History[1] LABS: CBC: Recent Labs 01/06/25 0136 01/07/2552401/08/25 0045 WBC 8.5 7.8 7.5 RBC 2.36* [...] apply ET mix TID and PRN, leave MARINE ERECTOR. Turn and reposition q 2 hr, waffle [...] Pita Jara Mobile Relation: Parent Preferred language: Faroese Fiberglass Quality Technician needed? No Secondary Emergency Contact: EstefaniMamadou Relation: Father Trung Coppola DO Division of Hospitalist Medicine Acute care [facility] [1] Past Medical History: Diagnosis Date [...] from the original note were not included. [facility] Wound Care Progress Note Jessy Mckeon AGE: [...] to follow Recommend to follow up at [facility] Outpatient wound care center after hospital discharge. [...] anxiety. 60 tablet 1 epoetin molly-epbx (Retacrit) 95599 UNIT/ML injection Inject 10,000 Units under the skin. ergocalciferol (Vitamin D-2) 1.25 MG (28356 UT) capsule Take 1.25 mg by mouth [...] MELATONIN PO Take by mouth. nystatin (Mycostatin) 156895 UNIT/GM powder Apply topically 2 times daily. Apply to groin 60 g 0 polyethylene glycol, PEG, 3350 (Miralax) 17 g packet Take by mouth. Polysaccharide Iron Complex (IFEREX 150 PO) Take by mouth. Daily Oxt-Awq-Bdcqqd Cosigned by Los Wilks DO at 01/14/2025 [...] Candice Jarady Mobile Relation: Parent Preferred language: Faroese Fiberglass Quality Technician needed? No Secondary Emergency Contact: EstefaniMamadou [place] Relation: Father Ashley Hima Hayes MD Division of Hospitalist Medicine Acute care [facility] [1] Past Medical History: Diagnosis Date [...] Date: 12/30/2024 PCP: Edith Pierce MD Room#: W7-744/[id number] A BRIEF HOSPITAL COURSE: Jessy is a [...] Pita Jara Mobile Relation: Parent Preferred language: Faroese Fiberglass Quality Technician needed? No Secondary Emergency Contact: EstefaniMamadou Relation: Father Osbaldokashif Chinbill Hayes MD Division of Hospitalist Medicine [facility] [1] Past Medical History: Diagnosis Date Acid [...] apply ET mix TID and PRN, leave MARINE ERECTOR. Turn and reposition q 2 hr, waffle [...] Contact: EstefaniPita Mobile Relation: Parent Preferred language: Faroese Fiberglass Quality Technician needed? No Secondary Emergency Contact: EstefaniMamadou [place] Relation: Father Ashley Hima Hayes MD Division of Hospitalist Medicine [facility] [1] Past Medical History: Diagnosis Date Acid [...] Pita Jara Mobile Relation: Parent Preferred language: Faroese Fiberglass Quality Technician needed? No Secondary Emergency Contact: Mamadou Jara Relation: Father Fely Fernandes, STOPPERER ASSEMBLER - EXTENSION SERVICE ADVISOR [facility] [1] Past Medical History: Diagnosis Date Acid [...] from the original note were not included. [facility] Wound Care Progress Note Jessy Mckeon AGE: [...] apply ET mix TID and PRN, leave MARINE ERECTOR -waffle chair cushion if up in chair -Q2hr/PRN turns -glide sheets for T&R -continence checks Q1-2 Hrs/PRN Nutritional support Wound Care to follow Recommend to follow up at [facility] wound care center after hospital discharge. [...] anxiety. 60 tablet 1 epoetin molly-epbx (Retacrit) 54453 UNIT/ML injection Inject 10,000 Units under the skin. ergocalciferol (Vitamin D-2) 1.25 MG (52374 UT) capsule Take 1.25 mg by mouth [...] MELATONIN PO Take by mouth. nystatin (Mycostatin) 511922 UNIT/GM powder Apply topically 2 times daily. Apply to groin 60 g 0 polyethylene glycol, PEG, 3350 (Miralax) 17 g packet Take by mouth. Polysaccharide Iron Complex (IFEREX 150 PO) Take by mouth. Daily Ukl-Lvf-Ainuqf Cosigned by Los Wilks DO at 01/14/2025 4:59 PM EDT Images from the original note were not included. PHYSICAL THERAPY [facility] Treatment Note Name/MRN: Jessy Mckeon ([id number]) Date of : 1965 Age: 59 y.o. Room/Bed: W7-744/W7-744 A Discharge Recommendation: Longterm Facility Prior Level of Function Prior Level [...] History: Medical History[1] LABS: CBC: Recent Labs 12/31/24 2340 01/02/25 0103 WBC 8.5 7.5 RBC 2.37* [...] Piat Jara Mobile Relation: Parent Preferred language: Faroese Fiberglass Quality Technician needed? No Secondary Emergency Contact: EstefaniMamadou [place] Relation: Father Ghislaine CrossBETH [place] Division of Hospitalist Medicine [facility] [1] Past Medical History: Diagnosis Date Acid [...] listed above. [place], pt is sleepy in [...] History: Medical History[1] LABS: CBC: Recent Labs 12/30/24181812/31/24 2340 01/02/25 0103 WBC 7.9 8.5 7.5 RBC [...] Pita Jara Mobile Relation: Parent Preferred language: Faroese Fiberglass Quality Technician needed? No Secondary Emergency Contact: Mamadou Jara Relation: Father Ghislaine Macedo NP Division of Hospitalist Medicine [facility] [1] Past Medical History: Diagnosis Date Acid [...] original note were not included. OCCUPATIONAL THERAPY [facility] Initial Evaluation Name/MRN: Jessy Mckeon ([id number]) Evaluation Date: 01/01/2025 Date of : 1965 Admission Date: 12/30/2024 11:09 AM Age: 59 y.o. Room[facility]Bed: [facility] A Discharge Recommendation: Longterm Facility Equipment Needed: No Assessment IMPRESSION: Patient admit due to fall. Presents with limitations secondary to weakness and pain. Patient PLOF includes stand by assistance from staff at [facility] for BADLs., uses Rollator for mobility and [...] benefits of therapy. OT recommends SNF at [place]. Admitting Diagnosis: fall Performance Deficits /Impairments: Increased [...] hematuria 06/28/2024 Chronic renal disease, stage IV ([facility]) 06/20/2023 Chronic kidney disease, stage 3b ([facility]) 06/20/2023 Urinary tract infection without hematuria, site unspecified 03/17/2023 Urinary tract infection 03/16/2023 Depression 12/23/2021 Localized edema 01/11/2019 Schizoaffective disorder (CMS/HCC) ([facility]) 06/05/2018 Suicidal ideations 05/22/2018 Chronic schizoaffective disorder ([facility]) 05/22/2018 Acute gastric ulcer without hemorrhage or perforation 03/28/2018 Diverticulosis of large intestine without diverticulitis 03/28/2018 Chronic antral gastritis 03/28/2018 First degree hemorrhoids 03/28/2018 Dyspnea 03/03/2018 Urinary retention 03/02/2018 Chest pain 02/14/2018 Hyponatremia 02/12/2018 Hypothyroidism 10/12/2017 Morbid obesity with BMI of 45.0-49.9, adult ([facility]) 10/12/2017 Hypomagnesemia 10/12/2017 JOSE A (acute kidney injury) ([facility]) 10/12/2017 Chronic bilateral low back pain with bilateral sciatica 10/12/2017 Psychogenic polydipsia 10/12/2017 Hypertension 10/12/2017 Bipolar disorder ([facility]) 10/12/2017 Iron (Fe) deficiency anemia 10/09/2017 Primary [...] to Person Social/Functional History Patient admitted from [facility]. Assistive Equipment: rollator Patient lives in [place] where staff provides all IADL care and [...] Therapy Time Individual Co-Treatment Co-Evaluation Time In 928 Time Out 0953 Minutes 24 Timed Code Treatment Minutes: 15 Minutes Diamond Coles OT Patient's Occupational Therapy Plan of Care supervision is transferred to a [facility] Therapy Services Occupational Therapist. Goals and/or treatment [...] original note were not included. PHYSICAL THERAPY [facility] Initial Evaluation Name/MRN: Jessy Mckeon ([id number]) Evaluation Date: 01/01/2025 Date of : 1965 Admission Date: 12/30/2024 11:09 AM Age: 59 y.o. Room[facility]: [facility] A Discharge Recommendation: Longterm Facility Assessment IMPRESSION: pt admitted with fall. [...] hematuria 06/28/2024 Chronic renal disease, stage IV ([facility]) 06/20/2023 Chronic kidney disease, stage 3b ([facility]) 06/20/2023 Urinary tract infection without hematuria, site unspecified 03/17/2023 Urinary tract infection 03/16/2023 Depression 12/23/2021 Localized edema 01/11/2019 Schizoaffective disorder ([facility]/HCC) ([facility]) 06/05/2018 Suicidal ideations 05/22/2018 Chronic schizoaffective disorder ([facility]) 05/22/2018 Acute gastric ulcer without hemorrhage or perforation 03/28/2018 Diverticulosis of large intestine without diverticulitis 03/28/2018 Chronic antral gastritis 03/28/2018 First degree hemorrhoids 03/28/2018 Dyspnea 03/03/2018 Urinary retention 03/02/2018 Chest pain 02/14/2018 Hyponatremia 02/12/2018 Hypothyroidism 10/12/2017 Morbid obesity with BMI of 45.0-49.9, adult ([facility]) 10/12/2017 Hypomagnesemia 10/12/2017 JOSE A (acute kidney injury) ([facility]) 10/12/2017 Chronic bilateral low back pain with bilateral sciatica 10/12/2017 Psychogenic polydipsia 10/12/2017 Hypertension 10/12/2017 Bipolar disorder ([facility]) 10/12/2017 Iron (Fe) deficiency anemia 10/09/2017 Primary [...] (No Stairs) : 10 JH-HLM JH-HLM Score: Sat at edge of [...] Out 0832 Minutes 32 Treatment time 8min FA Katarina Mitchell PT Patient's Physical Therapy Plan of Care supervision is transferred to a [facility] Physical Therapist. Goals and/or treatment [...] History: Medical History[1] LABS: CBC: Recent Labs 12/30/24181812/31/24 2340 WBC 7.9 8.5 RBC 2.49* 2.37* HGB 7.7* 7.2* HCT 24.4* 22.7* MCV 98.0 95.8 RDW 14.1 13.9 PLT 268 318 BMP: Recent Labs 12/30/24181812/31/24 2340 NA 135* 132* K 4.0 4.3 [...] Pita Jara Mobile Relation: Parent Preferred language: Faroese Fiberglass Quality Technician needed? No Secondary Emergency Contact: Mamadou Jara [place] Relation: Father Ghislaine Macedo, BETH Division of Hospitalist Medicine [facility] [1] Past Medical History: Diagnosis Date Acid [...] original note were not included. PHYSICAL THERAPY [facility] Name/MRN: Jessy Mckeon ([id number]) Date: 12/31/2024 PT eval attempted. Pt declined mobility at this time due to pain level. Pt educated on benefits and purpose of PT eval, however pt continued to decline. Will re-attempt at later date/time as schedule permits. Pt reports she resides at [facility] and typically uses rollator for mobility. Suzette Perez, PT Hospitalist Progress Note 12/31/2024 Subjective: Admit Date: 12/30/2024 PCP: Edith Pierce MD Room#: W7-744/W7-744 A BRIEF HOSPITAL COURSE: Jessy is a 59 y.o. female with past medical history below who presents with chief complaint listed above. [place], pt is sleepy in [...] History: Medical History[1] LABS: CBC: Recent Labs 12/30/241818 WBC 7.9 RBC 2.49* HGB 7.7* HCT 24.4* MCV 98.0 RDW 14.1 PLT 268 BMP: Recent Labs 12/30/241818 NA 135* K 4.0 CL 103 CO2 24 BUN 15 CREATININE 2.72* GLUCOSE 91 CALCIUM 8.5 ANIONGAP 8 LIVER PROFILE: Recent Labs 12/30/241818 AST 22 [...] Contact Information Primary Emergency Contact: Pita Jara [employer] Relation: Parent Preferred language: Faroese Fiberglass Quality Technician needed? No Secondary Emergency Contact: EstefaniMamadou [place] Relation: Father Ghislaine Macedo NP Division of Hospitalist Medicine Acute care [facility] [1] Past Medical History: Diagnosis Date [...] mass loss Fluid Accumulation: Unable to assess Gas Meter Checker Strength: Not Performed Nutrition Assessment: 59yo F [...] On: Kcal/kg Weight Used for Energy Requirements: [place] Weight for Energy Calculation (kg): 52 kg Total Energy Requirements (kcals/day): 25-30 kcal/kg = 7580-6077 kcal/day Weight Used for Protein Requirements: [place] Weight in Kg Used for Protein Requirements: [...] 10/04 288# bed, 08/09 260#, 06/14 276#, 1/21/24 245#) [place] Body Weight (lbs) (Calculated): 115 lbs [place] Body Weight (Kg) (Calculated): 52 kg % [place] Body Weight (Calculated): 258.1 % BMI (kg/m2) [...] soon to determine Flavia Wang RD Contact: *[phone] documented in this encounter [facility] 01-15-2025 Note Formatting of this n ote might be different from the original. Chart reviewed. PASR, State level review and IRASEMA completed. Transport under will call in Roundtrip for today. Pt auth remains pending for [facility], [facility]. Pt refused PT yesterday, therapy see today note entered today, as Ins may ask for updates. Await ins auth for dc. CM and SW will follow for dc planning needs. [facility] 01-15-2025 Note Formatting of this n ote might be different from the original. Chart reviewed. PASR, State level review and IRASEMA completed. Transport under will call in Roundtrip for today. Pt auth remains pending for [facility], [facility]. Pt refused PT yesterday, therapy see today note entered today, as Ins may ask for updates. Await ins auth for dc. CM and SW will follow for dc planning needs. [facility] 01-15-2025 Hospital Discharge instructions Ashley Hayes MD - 01/15/2025 7:48 AM EDT Images from the original note were not included. Continuity of Care Form Patient Name: Jessy Mckeon : 1965 Admit date: 12/30/2024 Discharge date: 01/15/2025 Code Status Order: Full Code Advance Directives: N Admitting Physician: Jude Chase DO PCP: Edith Pierce MD Discharging Nurse: Jorge RODRIGUEZ Discharging Hospital Unit/Room#: W0-746/W9-728 A Discharging Unit Emergency Contact: Extended Emergency Contact Information Primary Emergency Contact: Pita Jara [employer] Relation: Parent Preferred language: Faroese Fiberglass Quality Technician needed? No Secondary Emergency Contact: Mamadou Jara [place] Relation: Father Past Surgical History: Past Surgical [...] Minimal assistance Toileting Minimal assistance Feeding Independent [place] Minimal assistance Med Delivery no Wound Care Documentation and Therapy: Wound/Incision 12/30/24 Other (comment) Buttock Midline;Right (Active) Site Assessment [place] 01/12/25 0815 Kayley-Wound Assessment Fragile 01/09/252301 Wound Length (cm) 5 cm 01/07/25 0825 Wound Width (cm) 1 cm 01/07/25824 Wound Surface Area (cm^2) 3.93 cm^2 01/07/25824 Wound Depth (cm) 0.1 cm 12/30/24 231 Wound Volume (cm^3) 0.262 cm^3 12/30/24 231 Drainage Description Serosanguineous 12/30/24 2312 Odor None 01/09/25 2302 Drainage Amount None 01/09/25 230 Treatments Pharmaceutical agent 01/12/25 0815 Primary Dressing Open to air 01/14/252114 Number of days: 15 Wound/Incision 12/30/24 Other (comment) Buttock Left (Active) Site Assessment [place] 01/12/25 0815 Kayley-Wound Assessment Fragile 01/09/25 2302 Wound Length (cm) 6 cm 01/07/25 08 Wound Width (cm) 6 cm 01/07/25824 Wound Surface Area (cm^2) 28.27 cm^2 01/07/25 08 Wound Depth (cm) 0.1 cm 01/07/25 08 Wound Volume (cm^3) 1.885 cm^3 01/07/25 08 Wound Healing % 0 01/07/25824 Drainage Description Serosanguineous 12/30/24 2311 Odor None 01/09/25 230 Drainage Amount None 01/09/25 2302 Treatments Pharmaceutical agent 01/12/25 0815 Primary Dressing Open to air 01/14/252114 Number of days: 15 Wound/Incision 12/30/24 Pressure Injury Leg Left;Upper;Posterior (Active) Site Assessment [place] 01/12/25 0815 Kayley-Wound Assessment Fragile 01/09/25 2302 Odor None 01/09/25 2302 Drainage Amount None 01/09/25 2302 Treatments Pharmaceutical [...] Date: 12/30/2024 Discharging to Facility/ Agency Name: [facility] Address: [address] [place] [address] [address] [place] [address] Dialysis Facility (if applicable) Name: Address: Dialysis Schedule: Phone: Fax: Quality Assurance Supervisor Body/Ocean Export Account Manager signature: ICIAN SECTION Name: Jessy Mckeon Prognosis: fair Condition at Discharge: stable Rehab Potential (if transferring to Rehab): fair Recommended Labs or Other Treatments After Discharge: cbc, cmp The individual is being admitted to a nursing facility directly from an [facility] or a unit of a [facility] that is not operated by or licensed by [facility] under section 5119.14 or 5160-3-15.1 5 The individual requires the level of services provided by a nursing facility for the condition for which he or she was treated in the hospital and, Physician Certification: I certify the above information and transfer of Jessy Mckeon is necessary for the continuing treatment of the diagnosis listed and that she requires halfway facility for less than 30 days. Update Admission H&P: No change in H&P PHYSICIAN SIGNATURE: The following attachments cannot be sent through Care Everywhere.Knee Pain Discharge Instructions (Faroese)documented in this encounter [facility] 01-14-2025 Note Problem: Potential f or Compromised Skin Integrity Goal: Skin Integrity is Maintained or Improved Outcome: Progressing Goal: Nutritional status is improving Outcome: Progressing [facility] 01-14-2025 Plan of care note Problem: Potential for Compromised Skin Integrity Goal: Skin Integrity is Maintained or Improved Outcome: Progressing Goal: Nutritional status is improving Outcome: Progressing [facility] 01-14-2025 Note PHYSICAL THERAPY [facility] Name/MRN: Jessy Mckeon ([id number]) Date: 01/14/2025 Therapy tx session attempted. Pt states "I would like to nap". Despite education and encouragement pt refuses (3x) activity this date. Heather Costa PTA [facility] 01-14-2025 Note Problem: Potential f or Compromised Skin Integrity Goal: Skin Integrity is Maintained or Improved Outcome: Progressing Problem: Pain - Adult Goal: Verbalizes/displays adequate comfort level or baseline comfort level Outcome: Progressing [facility] 01-14-2025 Plan of care note Problem: Potential for Compromised Skin Integrity Goal: Skin Integrity is Maintained or Improved Outcome: Progressing Problem: Pain - Adult Goal: Verbalizes/displays adequate comfort level or baseline comfort level Outcome: Progressing [facility] 01-13-2025 Note Problem: Potential f or Compromised Skin Integrity Goal: Skin Integrity is Maintained or Improved Outcome: Progressing Goal: Nutritional status is improving Outcome: Progressing [facility] 01-13-2025 Plan of care note Problem: Potential for Compromised Skin Integrity Goal: Skin Integrity is Maintained or Improved Outcome: Progressing Goal: Nutritional status is improving Outcome: Progressing [facility] 01-13-2025 Note Formatting of this n ote is different from the original. Care Management Progress Note 01/13/25 0847 Rapid Rounds Attendance Quality Assurance Supervisor Body Planned Discharge Disposition [facility], [facility] pending Today we still await Attending completion of discharge workflow;Facility pre-cert This manager data reviewed and completed weekend CarePort task requesting to follow this patient, assisting with discharge planning. Electronic chart and CarePort were reviewed. Contacted facility for update on AUTH status. AUTH remains pending at this time. Length of Stay (Days): 0 GMLOS: No GMLOS Documented [facility] 01-13-2025 Note Formatting of this n ote is different from the original. Care Management Progress Note 01/13/25 0847 Rapid Rounds Attendance Quality Assurance Supervisor Body Planned Discharge Disposition [facility], AUTH pending Today we still await Attending completion of discharge workflow;Facility pre-cert This manager data reviewed and completed weekend CarePort task requesting to follow this patient, assisting with discharge planning. Electronic chart and CarePort were reviewed. Contacted facility for update on AUTH status. AUTH remains pending at this time. Length of Stay (Days): 0 GMLOS: No GMLOS Documented [facility] 01-13-2025 Plan of care note Problem: Knowledge [...] My discharge needs are met Outcome: Progressing [facility] 01-12-2025 Plan of care note Problem: Knowledge [...] other facility with appropriate resources Outcome: Progressing [facility] 01-12-2025 Note Formatting of this n ote might be different from the original. CM tasked to follow over the weekend. Msg sent to facility - [facility] remains pending. CM to assist with DC once auth is back. [facility] 01-12-2025 Note Formatting of this n ote might be different from the original. CM tasked to follow over the weekend. Msg sent to facility - [facility] remains pending. CM to assist with DC once itzel is back. [facility] 01-12-2025 Plan of care note Problem: Knowledge [...] My discharge needs are met Outcome: Progressing [facility] 01-11-2025 Plan of care note Problem: Potential [...] 1632 by Maura Smith RN Outcome: Progressing T [facility] 01-11-2025 Plan of care note Problem: Knowledge Deficit Goal: Patient/family/caregiver demonstrates understanding of disease process, treatment plan, medications, and discharge instructions Outcome: Progressing Problem: Potential for Compromised Skin Integrity Goal: Skin Integrity is Maintained or Improved Outcome: Progressing Goal: Nutritional status is improving Outcome: Progressing Problem: Pain - Adult Goal: Verbalizes/displays adequate comfort level or baseline comfort level Outcome: Progressing T [facility] 01-11-2025 Note Formatting of this n ote [...] leave asking for a return call. . [facility] 01-11-2025 Note Formatting of this n ote might be different from the original. SW update: Updated Will Call in Roundtrip. Trip is now on calendar for 01/14. Completed weekend task for weekend TCC to check if auth comes back over the weekend. Received call from eva Melton CM, asking for a return call. ANTON attempted to call however had to leave asking for a return call. . [facility] 01-11-2025 Note Formatting of this n ote might be different from the original. SW follow up: Checked HENS. PASRR is now updated with correct first name for pt. Sent careport message to [facility], asking for update on auth and alerting PASRR is updated. Awaiting auth. . [facility] 01-11-2025 Note Formatting of this n ote might be different from the original. SW follow up: Checked HENS. PASRR is now updated with correct first name for pt. Sent careport message to [facility], asking for update on auth and alerting PASRR is updated. Awaiting auth. . [facility] 01-10-2025 Note Formatting of this n ote might be different from the original. SW follow up: ANTON completed Will Call in Roundtrip. Will Call on calendar date 01/11. Awaiting insurance auth, for pt to go to [facility]. . T [facility] 01-10-2025 Note Formatting of this n ote might be different from the original. SW follow up: ANTON completed Will Call in Roundtrip. Will Call on calendar date 01/11. Awaiting insurance auth, for pt to go to [facility]. . [facility] 01-09-2025 Plan of care note Problem: Potential [...] medications, and discharge instructions Outcome: Not Progressing [facility] 01-09-2025 Note Formatting of this n ote might be different from the original. Updated Clinicals placed to [facility] via Careport per TCC request. [facility] 01-09-2025 Note Formatting of this n ote might be different from the original. Updated Clinicals placed to [facility] via Careport per TCC request. [facility] 01-09-2025 Note Formatting of this n ote might be different from the original. Chart reviewed. ANTON noted PASRR level II review completed. Auth 01/08. PT/OT notes in chart today. Tasked CLASSIFICATION INSPECTOR to send updated clinical PT/OT today and IM yesterday to [facility]. Careport message to [facility] to report sending updated clinical shortly, please start auth and keep us posted. Plan [facility] pending INS auth. ANTON and CM will follow for dc planning. [facility] 01-09-2025 Note Formatting of this n ote might be different from the original. Chart reviewed. SW noted PASRR level II review completed. Auth 01/08. PT/OT notes in chart today. Tasked CLASSIFICATION INSPECTOR to send updated clinical PT/OT today and IM yesterday to [facility]. Careport message to [facility] to report sending updated clinical shortly, please start auth and keep us posted. Plan [facility] pending INS auth. ANTON and CM will follow for dc planning. T [facility] 01-09-2025 Note Formatting of this n ote might be different from the original. ANTON follow up: Checked HENS,Level II PASRR now completed. SW noticed pt first name was entered incorrectly into HENS. ANTON reached out to [facility], for advise on how to correct this mistake. advised to call [facility] , to request change and update with [...] N follow up: No call back from [facility]. ANTON sent e-mail to [facility], with request to change first name in HENS. Received e-mail response back, [facility] NEHEMIAS, with NEHEMIAS cc'ing the [facility] [employer] help desk, asking help desk to assist in fixing error. . [facility] 01-09-2025 Note Formatting of this n ote might be different from the original. ANTON follow up: Checked HENS,Level II PASRR now completed. SW noticed pt first name was entered incorrectly into HENS. ANTON reached out to [facility], for advise on how to correct this mistake. advised to call [facility] NEHEMIAS [phone], to request change and update with correct [...] N follow up: No call back from [facility] NEHEMIAS. ANTON sent e-mail to [facility] NEHEMIAS, with request to change first name in HENS. Received e-mail response back, [facility] NEHEMIAS, with NEHEMIAS cc'ing the [facility] [employer] help desk, asking help desk to assist in fixing error. . [facility] 01-08-2025 Note Formatting of this n ote might be different from the original. SW follow up: SW checked HENS, Level II still pending. Attempted to call [facility] DON again. DON didn't answer and vm is full, unable to leave a vm. . [facility] 01-08-2025 Note Formatting of this n ote might be different from the original. SW follow up: SW checked HENS, Level II still pending. Attempted to call [facility] DON again. DON didn't answer and vm is full, unable to leave a vm. . [facility] 01-08-2025 Note Formatting of this n ote might be different from the original. Chart reviewed. Pt VS and labs noted. Awaiting level 2 review for PASRR to go to SNF. PT/OT see tomorrow entered, prior rec SNF. Plan: [facility], pending review. SW and CM following for dc planning needs. [facility] 01-08-2025 Note Formatting of this n ote might be different from the original. Chart reviewed. Pt VS and labs noted. Awaiting level 2 review for PASRR to go to SNF. PT/OT see tomorrow entered, prior rec SNF. Plan: [facility], pending review. SW and CM following for dc planning needs. T [facility] 01-06-2025 Plan of care note Problem: Knowledge [...] Assess Nutritional Intake Outcome: Not Progressing T [facility] 01-06-2025 Nurse Note Rn gave nightly meds, incluing prns requested. Head to toe assessment done. Pt requested a diet gignger it was given nothing else needed. Bed in lowest position, brakes locked, bed alarm on and call light in reach. [facility] 05-25-2025 Nurse Note RN came into room to [...] locked and call light with in reach. [facility] 01-06-2025 Plan of care note Continue to monitor skin. [facility] 01-05-2025 Plan of care note Problem: Knowledge [...] discharge needs are met Outcome: Not Progressing [facility] 01-05-2025 Nurse Note Pt asked for water to be refilled and a diet kathy kun. T [facility] 01-05-2025 Nurse Note Rn passed nightly meds and talked to pt about getting blood work done tonight and pt agreed. T [facility] 01-05-2025 Nurse Note RN went into room to introduce self to pt, update white board and go over nightly meds. Pt was awake laying in bed and okay with all meds. Pt needed nothing else at this time. Bed in lowest position, brakes locked and call light with in reach, T [facility] 01-05-2025 Nurse Note Patient refused to be turned to apply ET mix. Patient educated on the importance of ET mix. T [facility] 01-05-2025 Nurse Note Patient refused bloodwork for dayshift RN. Provider notified. T [facility] 01-05-2025 Note Formatting of this n ote might be different from the original. QUALITY ASSURANCE SUPERVISOR BODY asked to review [facility] for return of Level II Pasrr. [facility] states that it was referred on 01/02/25 with no results back at this time. TCC notified. T [facility] 01-05-2025 Note Formatting of this n ote might be different from the original. QUALITY ASSURANCE SUPERVISOR BODY asked to review [facility] for return of Level II Pasrr. [facility] states that it was referred on 01/02/25 with no results back at this time. TCC notified. T [facility] 01-05-2025 Nurse Note Patient refusing morning blood work. Provider notified. Lea Clarke RN T [facility] 01-05-2025 Plan of care note Problem: Knowledge [...] Interventions Goal: Assess Nutritional Intake Outcome: Progressing [facility] 05-23-2025 Plan of care note Problem: Knowledge Deficit Goal: Patient/family/caregiver demonstrates understanding of disease process, treatment plan, medications, and discharge instructions Outcome: Progressing Problem: Potential for Compromised Skin Integrity Goal: Skin Integrity is Maintained or Improved Outcome: Progressing Goal: Nutritional status is improving Outcome: Progressing Problem: Pain - Adult Goal: Verbalizes/displays adequate comfort level or baseline comfort level Outcome: Progressing T [facility] 01-04-2025 Note Formatting of this n ote might be different from the original. SW follow up: SW checked HEN, Level II is still pending. SW to place weekend TCC task to checked HENS over weekend, in case Level II gets completed later. SNF indicated they would be checking as well. Auth is good until 01/08. . [facility] 01-04-2025 Note Formatting of this n ote might be different from the original. SW follow up: SW checked HEN, Level II is still pending. SW to place weekend TCC task to checked HENS over weekend, in case Level II gets completed later. SNF indicated they would be checking as well. Auth is good until 01/08. . [facility] 01-04-2025 Nurse Note Patient refusing morning blood work. Provider notified. T [facility] 01-03-2025 Note Formatting of this n ote might be different from the original. SW follow up: Checked HENS Level II still pending. Received secure chat from [facility], they have auth [id number]. Pt needs to admit before 01/08 or will need new auth. SW attempted to call DON at [facility] with an update on discharge plans. DON out of office and vm full. Will try again . . [facility] 01-03-2025 Note Formatting of this n ote might be different from the original. SW follow up: Checked HENS Level II still pending. Received secure chat from [facility], they have auth [id number]. Pt needs to admit before 01/08 or will need new auth. SW attempted to call DON at [facility] with an update on discharge plans. DON out of office and vm full. Will try again . . [facility] 01-03-2025 Nurse Note Patient refusing morning blood work. Provider notified. [facility] 01-02-2025 Note Formatting of this n ote might be different from the original. SW follow up: Sent message via [employer] to [facility], asking facility to go ahead and start auth. . follow up: [facility] requesting PASRR/7000 in order to submit for auth. Pt is in OBS status, requires PASRR. Reviewed chart. Met with pt, to ask some of the PASRR questions. Pt diag with Renee, along with mental health issues. Pt denies any involvement with DD Board. Receives psychiatric care at [facility] outpatient Called [facility], confirmed with Renee Santo diag does fall under DEL CID diag in HENS. SW completed PASRR in HENS. Pt requires a state Level II DEL CID review, due to Asperger diag. SW updated SNF. . [facility] 01-02-2025 Note Formatting of this n ote might be different from the original. SW follow up: Sent message via careport to [facility], asking facility to go ahead and start auth. . follow up: [facility] requesting PASRR/7000 in order to submit for auth. Pt is in OBS status, requires PASRR. Reviewed chart. Met with pt, to ask some of the PASRR questions. Pt diag with Renee, along with mental health issues. Pt denies any involvement with DD Board. Receives psychiatric care at [facility] outpatient Called [facility], confirmed with Renee Santo diag does fall under DEL CID diag in [facility]. SW completed PASRR in [facility]. Pt requires a state Level II DEL CID review, due to Asperger diag. SW updated SNF. . [facility] 01-02-2025 Consult note Associated Order (s): INPATIENT CONSULT TO WOUND CARE PROVIDERS Images from the original note were not included. [facility] Wound Care CONSULT Note Jessy Mckeon AGE: [...] apply ET mix TID and PRN, leave MARINE ERECTOR -waffle chair cushion if up in chair -Q2hr/PRN turns -glide sheets for T&R -continence checks Q1-2 Hrs/PRN Nutritional support Wound Care to follow Recommend to follow up at [facility] Outpatient wound care center after hospital discharge. [...] anxiety. 60 tablet 1 epoetin molly-epbx (Retacrit) 66107 UNIT/ML injection Inject 10,000 Units under the skin. ergocalciferol (Vitamin D-2) 1.25 MG (58572 UT) capsule Take 1.25 mg by mouth [...] MELATONIN PO Take by mouth. nystatin (Mycostatin) 039744 UNIT/GM powder Apply topically 2 times daily. Apply to groin 60 g 0 polyethylene glycol, PEG, 3350 (Miralax) 17 g packet Take by mouth. Polysaccharide Iron Complex (IFEREX 150 PO) Take by mouth. Daily Zyy-Nmj-Spdgpg Cosigned by Los Wilks DO at 01/14/2025 4:59 PM EDT [facility] 01-02-2025 Consult note Associated Order (s): INPATIENT CONSULT TO WOUND CARE PROVIDERS Images from the original note were not included. [facility] Wound Care CONSULT Note Jessy Mckeon AGE: [...] ET mix TID and PRN, leave TANA -ataaranza chair cushion if up in chair -Q2hr/PRN turns -glide sheets for T&R -continence checks Q1-2 Hrs/PRN Nutritional support Wound Care to follow Recommend to follow up at [facility] Outpatient wound care center after hospital discharge. [...] anxiety. 60 tablet 1 epoetin molly-epbx (Retacrit) 76357 UNIT/ML injection Inject 10,000 Units under the skin. ergocalciferol (Vitamin D-2) 1.25 MG (07016 UT) capsule Take 1.25 mg by mouth [...] MELATONIN PO Take by mouth. nystatin (Mycostatin) 388229 UNIT/GM powder Apply topically 2 times daily. Apply to groin 60 g 0 polyethylene glycol, PEG, 3350 (Miralax) 17 g packet Take by mouth. Polysaccharide Iron Complex (IFEREX 150 PO) Take by mouth. Daily Bvg-Tyv-Dikbia Cosigned by Los Wilks DO at 01/14/2025 4:59 PM EDT documented in this encounter [facility] 01-02-2025 Nurse Note Pt pulled out iv, stated she didn't want it any more, secure chatted clinical nurse occupational medicine 0549 Dr. Sullivan responded okay to leave out and check with day team [facility] 01-01-2025 Plan of care note Problem: Knowledge [...] other facility with appropriate resources Outcome: Progressing [facility] 01-01-2025 Note Formatting of this n ote might be different from the original. SW update: Received response back from [facility], they are able to accept pt. [facility]. SW met with pt, introduced self/role. Updated pt SNF is able to accept pt. Pt agreeable to discharge plan. . [facility] 01-01-2025 Note Formatting of this n ote might be different from the original. SW update: Received response back from [facility], they are able to accept pt. [facility]. SW met with pt, introduced self/role. Updated pt SNF is able to accept pt. Pt agreeable to discharge plan. . [facility] 01-01-2025 Nurse Note Patient did not allow RN to turn her to look at her wounds during morning assessment. Sacral and L posterior wounds documented initially by ED nurse. Wound care consult placed. [facility] 01-01-2025 Note Formatting of this n ote might be different from the original. ANTON follow up: PT/OT saw pt this am. Both recomm SNF at discharge. SW e-mailed the PT/OT notes to the DON at [facility]. TCC met with pt, pt agreeable to SNF. Pt gave [facility] as FOC. SW placed careport referral to [facility]. Awaiting response. . [facility] 01-01-2025 Note Formatting of this n ote might be different from the original. ANTON follow up: PT/OT saw pt this am. Both recomm SNF at discharge. SW e-mailed the PT/OT notes to the DON at [facility]. TCC met with pt, pt agreeable to SNF. Pt gave [facility] as FOC. SW placed careport referral to [facility]. Awaiting response. . [facility] 01-01-2025 Telephone encounter Note Name of caller: Pat Contact phone number: [phone] Provider: MD Stan Practice: [facility] Chief Complaint/Reason for Call: Pat called to inform provider, the assisted living facility is suggesting patient go into a halfway facility upon dc from hospital. [facility] 01-01-2025 Miscellaneous Notes Name of caller: Pat Contact phone number: [phone] Provider: MD Stan Practice: [facility] Chief Complaint/Reason for Call: Pat called to inform provider, the assisted living facility is suggesting patient go into a halfway facility upon dc from hospital. Pat notified of verbal order Ok for verbal order social sciences professor Name of caller: Pat Contact phone number: [phone] Relationship to Patient: patient Provider: Dr Pierce [...] it. Pat is asking for a social sciences professor referral to discuss nursing facillity. Best time of day caller can be reached: AM Patient advised that office/PCP has 24-48 business hours to return their call: Yes documented in this encounter [facility] 12-31-2024 Plan of care note Problem: Knowledge [...] Interventions Goal: Assess Nutritional Intake Outcome: Progressing [facility] 12-31-2024 Note Formatting of this n ote might be different from the original. Pt discussed in rounds. Pt familiar to from previous admission. Pt is from [facility] in [place]. SW attempted to call [facility] [phone]. DON unavailable. ANTON left message with medical office receptionist assistant, asking MELODY to call SW back. . follow up: SW received return call from MELODY Stewart at the [facility]. Al indicated pt had multiple falls this [...] e-mail the PT/OT notes to MELODY at [email or web address], once we have notes. SW following. . [facility] 12-31-2024 Note Formatting of this n ote might be different from the original. Pt discussed in rounds. Pt familiar to ANTON from previous admission. Pt is from [facility] in [place]. SW attempted to call [facility] [phone]. DON unavailable. ANTON left message with medical office receptionist assistant, asking MELODY to call ANTON back. . N follow up: ANTON received return call from MELODY Stewart at [...] suggesting pt received SNF services at discharge. ANTON discussed PT/OT has not seen pt yet. SW to e-mail the PT/OT notes to MELODY at [email or web address], once we have notes. ANTON following. . [facility] 12-31-2024 Note Problem: Knowledge D eficit Goal: Patient/family/caregiver demonstrates understanding of disease process, treatment plan, medications, and discharge instructions Outcome: Progressing [facility] 12-31-2024 Plan of care note Problem: Knowledge Deficit Goal: Patient/family/caregiver demonstrates understanding of disease process, treatment plan, medications, and discharge instructions Outcome: Progressing [facility] 12-30-2024 Emergency department Note Meal tray delivered at this time [facility] 12-30-2024 Emergency department Note Meal tray delivered at this time Pt refused ABG from RT at this time. Shakir BLANCHARD notified. Trauma float and resident unavailable for US IV placement. Per storage battery charger, ok to send to floor if no [...] not crush or chew. EPOETIN MOLLY-EPBX (RETACRIT) 93999 UNIT/ML INJECTION Inject 10,000 Units under the skin. ERGOCALCIFEROL (VITAMIN D-2) 1.25 MG (69190 UT) CAPSULE Take 1.25 mg by mouth [...] by mouth 2 times daily. NYSTATIN (MYCOSTATIN) 742296 UNIT/GM POWDER Apply topically 2 times daily. Apply to groin OMEPRAZOLE (PRILOSEC) [address] CAPSULE Take 1 capsule (40 mg) by mouth every morning (before breakfast). Do not crush or chew. POLYETHYLENE GLYCOL, PEG, 3350 (MIRALAX) 17 G PACKET Take by mouth. POLYSACCHARIDE IRON COMPLEX (IFEREX 150 PO) Take by mouth. Daily Tah-Vwc-Rtatfo RISPERIDONE (RISPERDAL) 3 MG TABLET Take 1 [...] Procedure Abnormality Status --------- ------ Comprehensive metabolic ...[[id number]] In process Please view results for these [...] have any help. I spoke with social sciences professor tried to get home health care involved but unfortunately they are not able to get her any help in the next few days. Her assisted living center does not have an escalation to halfway facility so she will be admitted for [...] drugs considered: Fernando Duenas MD am the mobile home installer of record. FINAL IMPRESSION 1. Fall, initial encounter 2. Acute pain of left knee DISPOSITION Admit 12/30/2024 04:23:50 PM PATIENT REFERRED TO: Edith Pierce MD [address] [place] [address] [address] [facility] [address] DISCHARGE MEDICATIONS: New Prescriptions No medications on [...] min Stress: No Stress Concern Present (10/03/2024) [employer] - Occupational Stress Questionnaire Feeling of Stress : Not at all Social Connections: Moderately Isolated (10/03/2024) Social Connection and Isolation Panel [NHANES] Frequency of Communication with Friends and Family: Three times a week Frequency of Social Gatherings with Friends and Family: Once a week Attends Evangelical Services: 1 to 4 times per year [...] the Last Year: No Pati Duenas MD 12/30/241846 documented in this encounter [facility] 12-30-2024 Emergency department Note Pt refused ABG from RT at this time. Shakir BLANCHARD notified. Trauma float and resident unavailable for US IV placement. Per storage battery charger, ok to send to floor if no IV placement ordered. [facility] 12-30-2024 Emergency department Note Two RN's attempted to get IV access with no success. Pt will need US IV. Blood work obtained. [facility] 12-30-2024 History and physical note Attending History [...] min Stress: No Stress Concern Present (10/03/2024) [employer] - Occupational Stress Questionnaire Feeling of Stress : Not at all Social Connections: Moderately Isolated (10/03/2024) Social Connection and Isolation Panel [NHANES] Frequency of Communication with Friends and Family: Three times a week Frequency of Social Gatherings with Friends and Family: Once a week Attends Evangelical Services: 1 to 4 times per year [...] and loss of muscle control Venlafaxine Hives [employer] Work Phone: 12-30-2024 Note [employer] [facility] 12-30-2024 History and physical note Attending [...] min Stress: No Stress Concern Present (10/03/2024) [employer] - Occupational Stress Questionnaire Feeling of Stress : Not at all Social Connections: Moderately Isolated (10/03/2024) Social Connection and Isolation Panel [NHANES] Frequency of Communication with Friends and Family: Three times a week Frequency of Social Gatherings with Friends and Family: Once a week Attends Evangelical Services: 1 to 4 times per year [...] control Venlafaxine Hives documented in this encounter [facility] 12-30-2024 Emergency department Note 1L of urine emptied from pt canister with purewick at this time. [facility] 12-30-2024 Emergency department Note Pt only urinated into bedpan. Pt did not have a BM [facility] 12-30-2024 Physician Emergency department Note EMERGENCY DEPARTMENT ENCOUNTER Pt Name: Jessy Mckeon Birthdate 1965 Date of evaluation: 12/30/2024 ED Provider: Pait Duenas MD CHIEF COMPLAINT Chief Complaint Patient [...] not crush or chew. EPOETIN MOLLY-EPBX (RETACRIT) 13416 UNIT/ML INJECTION Inject 10,000 Units under the skin. ERGOCALCIFEROL (VITAMIN D-2) 1.25 MG (74473 UT) CAPSULE Take 1.25 mg by mouth [...] by mouth 2 times daily. NYSTATIN (MYCOSTATIN) 321966 UNIT/GM POWDER Apply topically 2 times daily. Apply to groin OMEPRAZOLE (PRILOSEC) [address] CAPSULE Take 1 capsule (40 mg) by mouth every morning (before breakfast). Do not crush or chew. POLYETHYLENE GLYCOL, PEG, 3350 (MIRALAX) 17 G PACKET Take by mouth. POLYSACCHARIDE IRON COMPLEX (IFEREX 150 PO) Take by mouth. Daily Ygz-Ejk-Effvww RISPERIDONE (RISPERDAL) 3 MG TABLET Take 1 [...] Heart Rate Resp BP 12/30/24 1110 12/30/24 11112/30/24 11112/30/24 1110 36.9 C (98.4 F) 65 [...] Procedure Abnormality Status --------- ------ Comprehensive metabolic ...[[id number]] In process Please view results for these [...] Lying Sitting Pulse: 65 70 67 Resp: 18 12 Temp: 36.9 C (98.4 F) [...] have any help. I spoke with social sciences professor tried to get home health care involved but unfortunately they are not able to get her any help in the next few days. Her assisted living center does not have an escalation to halfway facility so she will be admitted for [...] drugs considered: Fernando Duenas MD am the mobile home installer of record. FINAL IMPRESSION 1. Fall, initial encounter 2. Acute pain of left knee DISPOSITION Admit 12/30/2024 04:23:50 PM PATIENT REFERRED TO: Edith Pierce MD [address] [place] [address] [address] [facility] [address] DISCHARGE MEDICATIONS: New Prescriptions No medications on [...] min Stress: No Stress Concern Present (10/03/2024) [employer] - Occupational Stress Questionnaire Feeling of Stress : Not at all Social Connections: Moderately Isolated (10/03/2024) Social Connection and Isolation Panel [NHANES] Frequency of Communication with Friends and Family: Three times a week Frequency of Social Gatherings with Friends and Family: Once a week Attends Evangelical Services: 1 to 4 times per year [...] Last Year: No Pati Duenas MD 12/30/24 0459 [facility] 12-29-2024 Hospital Discharge instructions Pat Prasad DO - 12/29/2024 8:51 PM EDT Continue to take your home prescribed medications for pain. Call your PCP for follow-up on Tuesday for continued management of your pain. documented in this encounter [facility] 12-29-2024 Emergency department Note EMERGENCY DEPARTMENT ENCOUNTER [...] chew., Starting Tue06/18/2024, Normal epoetin molly-epbx (Retacrit) 31070 UNIT/ML injection Inject 10,000 Units under the skin., Historical Med ergocalciferol (Vitamin D-2) 1.25 MG (72599 UT) capsule Take 1.25 mg by mouth [...] times daily., Starting Tue11/21/2023, Normal nystatin (Mycostatin) 417129 UNIT/GM powder Apply topically 2 times daily. Apply to groin, Starting Tue12/25/2024, Print omeprazole (PriLOSEC) [address] capsule Take 1 capsule (40 mg) by mouth every morning (before breakfast). Do not crush or chew., Starting Tue09/19/2023, Normal polyethylene glycol, PEG, 3350 (Miralax) 17 g packet Take by mouth., Historical Med Polysaccharide Iron Complex (IFEREX 150 PO) Take by mouth. Daily Mxg-Jfp-Aildci, Historical Med risperiDONE (RisperDAL) 3 MG tablet [...] Height: 1.6 m (5' 3") Medications HYDROcodone-acetaminophen ([place]) 5-325 MG per tablet 1 tablet (1 tablet Oral Given 12/29/242102) 59-year-old female presented to the ED for continued pain from prior falls. She denies any new injuries or complaints. She states that she had regular Tylenol at home which does not help came in for Tylenol 3's. No Tylenol sees at this facility is prescribed [place] and Butrans already for her chronic pain. [...] follow-up. Patient in agreement with plan. SCREENINGS Tamara Coma Scale Best Eye Response: Spontaneous Best Verbal Response: Confused Best Motor Response: Follows commands Tamara Coma Scale Score: 14 PROCEDURES: Unless otherwise noted below, none Procedures CRITICAL CARE TIME FINAL IMPRESSION 1. Other chronic pain DISPOSITION Discharge 12/29/2024 08:50:40 PM PATIENT REFERRED TO: Edith Pierce MD [address] [facility] [address] [facility] [id number] DISCHARGE MEDICATIONS: Discharge Medication List as of [...] min Stress: No Stress Concern Present (10/03/2024) [place] [employer] - Occupational Stress Questionnaire Feeling of Stress : Not at all Social Connections: Moderately Isolated (10/03/2024) Social Connection and Isolation Panel [NHANES] Frequency of Communication with Friends and Family: Three times a week Frequency of Social Gatherings with Friends and Family: Once a week Attends Evangelical Services: 1 to 4 times per year [...] departure on 12/29/2024. documented in this encounter [facility] 12-29-2024 Emergency department Triage note Pt. Arrived to ED via EMS with complaint of EMS reported fall at facility with "bumped head." Pt. Stated no changes since ED visit during previous shift with departure on 12/29/2024. [facility] 12-29-2024 Physician Emergency department Note EMERGENCY DEPARTMENT [...] chew., Starting Tue06/18/2024, Normal epoetin molly-epbx (Retacrit) 54447 UNIT/ML injection Inject 10,000 Units under the skin., Historical Med ergocalciferol (Vitamin D-2) 1.25 MG (95719 UT) capsule Take 1.25 mg by mouth [...] not start before August 06, 2024., Starting 08/06/2024, Historical Med MELATONIN PO Take by mouth., Historical Med metoprolol tartrate (Lopressor) 100 MG tablet Take 1 tablet (100 mg) by mouth 2 times daily., Starting Tue11/21/2023, Normal nystatin (Mycostatin) 755133 UNIT/GM powder Apply topically 2 times daily. Apply to groin, Starting Tue12/25/2024, Print omeprazole (PriLOSEC) [address] capsule Take 1 capsule (40 mg) by mouth every morning (before breakfast). Do not crush or chew., Starting Tue09/19/2023, Normal polyethylene glycol, PEG, 3350 (Miralax) 17 g packet Take by mouth., Historical Med Polysaccharide Iron Complex (IFEREX 150 PO) Take by mouth. Daily Bdd-Ggh-Xwfbfw, Historical Med risperiDONE (RisperDAL) 3 MG tablet [...] Height: 1.6 m (5' 3") Medications HYDROcodone-acetaminophen (Brockton) 5-325 MG per tablet 1 tablet (1 tablet Oral Given 12/29/242102) 59-year-old female presented to the ED for continued pain from prior falls. She denies any new injuries or complaints. She states that she had regular Tylenol at home which does not help came in for Tylenol 3's. No Tylenol sees at this facility is prescribed Brock[place] and Butrans already for her chronic pain. [...] follow-up. Patient in agreement with plan. SCREENINGS [place] Coma Scale Best Eye Response: Spontaneous Best Verbal Response: Confused Best Motor Response: Follows commands [place] Coma Scale Score: 14 PROCEDURES: Unless otherwise noted below, none Procedures CRITICAL CARE TIME FINAL IMPRESSION 1. Other chronic pain DISPOSITION Discharge 12/29/2024 08:50:40 PM PATIENT REFERRED TO: Edith Pierce MD [address] [place] [address] [address] [facility] [address] DISCHARGE MEDICATIONS: Discharge Medication List as of [...] min Stress: No Stress Concern Present (10/03/2024) [place] [employer] Occupational Health - Occupational Stress Questionnaire Feeling of Stress : Not at all Social Connections: Moderately Isolated (10/03/2024) Social Connection and Isolation Panel [NHANES] Frequency of Communication with Friends and Family: Three times a week Frequency of Social Gatherings with Friends and Family: Once a week Attends Evangelical Services: 1 to 4 times per year [...] Year: No Pat Prasad DO 12/30/24 0000 [facility] 12-29-2024 Emergency department Note Cels[facility] arrived for transport. Hand off report given to medics. [facility] 12-29-2024 Emergency department Note [facility] arrived for transport. Hand off report given to medics. Notified physician of patients skin concerns on the back of her left thigh. Media collected. The resident provided with discharge instructions and educated to last picker time. She was explained that she would [...] need tap water. The patient then turned clinical nurse occupational medicine light and stated she needed nursing moral [...] her with care. documented in this encounter [facility] 12-29-2024 Emergency department Note Notified physician of patients skin concerns on the back of her left thigh. Media collected. [facility] 12-29-2024 Emergency department Note The resident provided with discharge instructions and educated to last picker time. She was explained that she would be given a walking boot. The patient refused the boot and stated she only wanted an jennifer bandage. The physician was notified and he stated ok to give her an jennifer bandage instead. Jennifer bandage applied to her left foot. [facility] 12-29-2024 Emergency department Note The patient turned of call light asked for ice water, this nurse returned with ice water she then stated I hope its not ice water I need tap water. The patient then turned clinical nurse occupational medicine light and stated she needed nursing moral support to move herself up in the bed. The patient was provided with encouragement to move up in bed. [facility] 12-29-2024 Emergency department Note This nurse and a [...] officer can not provide her with care. [facility] 12-28-2024 Telephone encounter Note Pat notified of verbal order [facility] 12-28-2024 Telephone encounter Note Ok for verbal order social sciences professor [facility] 12-28-2024 Telephone encounter Note Name of caller: Pat Contact phone number: [phone] Relationship to Patient: patient Provider: Dr Pierce [...] it. Pat is asking for a social sciences professor referral to discuss nursing facillity. Best time of day caller can be reached: AM Patient advised that office/PCP has 24-48 business hours to return their call: Yes [facility] 12-28-2024 Emergency department Note Update called to patients facility. [facility] 12-28-2024 Emergency department Note Update called to [...] not crush or chew. EPOETIN MOLLY-EPBX (RETACRIT) 61717 UNIT/ML INJECTION Inject 10,000 Units under the skin. ERGOCALCIFEROL (VITAMIN D-2) 1.25 MG (46727 UT) CAPSULE Take 1.25 mg by mouth [...] by mouth 2 times daily. NYSTATIN (MYCOSTATIN) 076346 UNIT/GM POWDER Apply topically 2 times daily. Apply to groin OMEPRAZOLE (PRILOSEC) [address] CAPSULE Take 1 capsule (40 mg) by mouth every morning (before breakfast). Do not crush or chew. POLYETHYLENE GLYCOL, PEG, 3350 (MIRALAX) 17 G PACKET Take by mouth. POLYSACCHARIDE IRON COMPLEX (IFEREX 150 PO) Take by mouth. Daily Prd-Soz-Sogqpt RISPERIDONE (RISPERDAL) 3 MG TABLET Take 1 tablet (3 mg) by mouth Nightly. ROSUVASTATIN (CRESTOR) 10 MG TABLET TAKE 1 TABLET BY MOUTH DAILY TRAZODONE (DESYREL) 100 MG TABLET Take 2 tablets (200 mg) by mouth Nightly. ALLERGIES Antihistamines, chlorpheniramine-type; Benztropine; Diphenhydramine; Nsaids; Other; and Venlafaxine FAMILY HISTORY Family History[3] SOCIAL HISTORY Social History[4] PHYSICAL EXAM ED Triage Vitals [12/28/24513] Temp Heart Rate Resp BP 36.8 C [...] DEPARTMENT COURSE and DIFFERENTIAL DIAGNOSIS/MDM: Vitals: Vitals: 12/28/24513 BP: 112/61 Pulse: 76 Resp: 18 Temp: 36.8 C (98.2 F) TempSrc: Oral SpO2: 98% Medications acetaminophen (Tylenol) 500 MG tablet - Pyxis ADS Override Pull (has no administration in time range) acetaminophen (Tylenol) tablet 1,000 mg (1,000 mg Oral Given 12/28/24553) SCREENINGS MDM elements: The patient presented with [...] Consent obtained: Verbal Consent given by: Patient Stendal protocol: Patient identity confirmed: Verbally with patient [...] Discharge 12/28/2024 05:56:52 AM PATIENT REFERRED TO: [facility] Rosalie [address] [place] [address] Dr [place] [address] DISCHARGE MEDICATIONS: New Prescriptions No medications [...] min Stress: No Stress Concern Present (10/03/2024) [place] [employer]ational Health - Occupational Stress Questionnaire Feeling of Stress : Not at all Social Connections: Moderately Isolated (10/03/2024) Social Connection and Isolation Panel [NHANES] Frequency of Communication with Friends and Family: Three times a week Frequency of Social Gatherings with Friends and Family: Once a week Attends Evangelical Services: 1 to 4 times per year [...] is on amoxicillin documented in this encounter [facility] 12-28-2024 Emergency department Note Attempted to call patients facility 3 times with no answer to give information about patients discharge. [facility] 12-28-2024 Emergency department Note Splint applied by provider. [facility] 12-28-2024 Emergency department Triage note Pt to ED after a fall, patient was trying to get to her chair and reports falling twice, does state she hit her head, and is complaining of left hand pain, denies LOC. PT was also recently dx w/ UTI and is on amoxicillin [facility] 12-28-2024 Physician Emergency department Note Associated Order(s): [...] not crush or chew. EPOETIN MOLLY-EPBX (RETACRIT) 73120 UNIT/ML INJECTION Inject 10,000 Units under the skin. ERGOCALCIFEROL (VITAMIN D-2) 1.25 MG (22752 UT) CAPSULE Take 1.25 mg by mouth [...] by mouth 2 times daily. NYSTATIN (MYCOSTATIN) 282549 UNIT/GM POWDER Apply topically 2 times daily. Apply to groin OMEPRAZOLE (PRILOSEC) [address] CAPSULE Take 1 capsule (40 mg) by mouth every morning (before breakfast). Do not crush or chew. POLYETHYLENE GLYCOL, PEG, 3350 (MIRALAX) 17 G PACKET Take by mouth. POLYSACCHARIDE IRON COMPLEX (IFEREX 150 PO) Take by mouth. Daily Ncx-Olk-Cpiqyl RISPERIDONE (RISPERDAL) 3 MG TABLET Take 1 [...] Consent obtained: Verbal Consent given by: Patient Stendal protocol: Patient identity confirmed: Verbally with patient [...] Discharge 12/28/2024 05:56:52 AM PATIENT REFERRED TO: [facility] Ros[place]ie [address] [place] [address] Dr [place] [address] DISCHARGE MEDICATIONS: New Prescriptions No medications [...] min Stress: No Stress Concern Present (10/03/2024) [place] [employer]ational Health - Occupational Stress Questionnaire Feeling of Stress : Not at all Social Connections: Moderately Isolated (10/03/2024) Social Connection and Isolation Panel [NHANES] Frequency of Communication with Friends and Family: Three times a week Frequency of Social Gatherings with Friends and Family: Once a week Attends Evangelical Services: 1 to 4 times per year [...] Year: No Arslan Kirkland MD 12/28/24 0559 [facility] 12-25-2024 Emergency department Note Patient up to BSC with rollator to void. [facility] 12-25-2024 Emergency department Note Patient up to [...] chew., Starting Tue06/18/2024, Normal epoetin molly-epbx (Retacrit) 06083 UNIT/ML injection Inject 10,000 Units under the skin., Historical Med ergocalciferol (Vitamin D-2) 1.25 MG (54784 UT) capsule Take 1.25 mg by mouth [...] (IFEREX 150 PO) Take by mouth. Daily Lrt-Egx-Gxhovo, Historical Med risperiDONE (RisperDAL) 3 MG tablet [...] capsule (0.4 mg) by mouth daily., Starting 02/06/2024, Normal ALLERGIES Benztropine, Diphenhydramine, Nsaids, Other, and [...] Abnormal Glucose 127 (*) Narrative: [facility], [address] [place] [address] CLIA ID: [id number] URINE CULTURE POCT GLUCOSE METER RADIOLOGY : [...] PM PATIENT REFERRED TO: Edith Pierce MD [address] [place] [address] [address] [facility] [id number] In 5 days I prescribed: Discharge Medication List as of 12/25/2024 2:34 PM START taking these medications Details amoxicillin (Amoxil) 500 MG capsule Take 2 capsules (1,000 mg) by mouth every 12 hours for 10 days., Starting Tue12/25/2024, Until Tue01/04/2025, Print nystatin (Mycostatin) 843475 UNIT/GM powder Apply topically 2 times daily. [...] Patton MD 12/25/241927 documented in this encounter [facility] 12-25-2024 Telephone encounter Note Name of caller: Pat Contact phone number: [phone] Relationship to Patient: [facility] Provider: Stan Practice: [facility] Chief Complaint/Reason for Call: Pat calling to let provider know, Patient missed visit today due to going to ED for mental health status change. Best time of day caller can be reached: N/A Patient advised that office/PCP has 24-48 business hours to return their call: N/A [facility] 12-25-2024 Miscellaneous Notes Name of caller: Pat Contact phone number: [phone] Relationship to Patient: [facility] Provider: Stan Practice: [facility] Chief Complaint/Reason for Call: Pat calling to let provider know, Patient missed visit today due to going to ED for mental health status change. Best time of day caller can be reached: N/A Patient advised that office/PCP has 24-48 business hours to return their call: N/A documented in this encounter [facility] 12-25-2024 Emergency department Note Patient ambulated in [place] with rollator. Physician aware. Patient requesting to go back home by squad. [facility] 12-25-2024 Emergency department Note BSC provided to patient for bowel movement. [facility] 12-25-2024 Emergency department Note Repositioned patient [facility] 12-25-2024 Emergency department Note This nurse to room. Patient seen sleeping in bed. Patient states she is unable to give a urine at this time. Bed gale removed. Physician informed. [facility] 12-25-2024 Emergency department Note Patient repositioned and placed on bed gale. [facility] 12-25-2024 Physician Emergency department Note EMERGENCY DEPARTMENT [...] chew., Starting Tue06/18/2024, Normal epoetin molly-epbx (Retacrit) 69010 UNIT/ML injection Inject 10,000 Units under the skin., Historical Med ergocalciferol (Vitamin D-2) 1.25 MG (88100 UT) capsule Take 1.25 mg by mouth [...] (IFEREX 150 PO) Take by mouth. Daily Nus-Pyp-Ojyfax, Historical Med risperiDONE (RisperDAL) 3 MG tablet [...] 127 (*) Narrative: Performed by: [facility], [address] [place] [address] CLIA ID: [id number] URINE CULTURE POCT GLUCOSE METER RADIOLOGY : [...] PM PATIENT REFERRED TO: Edith Pierce MD [address] [facility] [address] [facility] [address] In 5 days I prescribed: Discharge Medication List as of 12/25/2024 2:34 PM START taking these medications Details amoxicillin (Amoxil) 500 MG capsule Take 2 capsules (1,000 mg) by mouth every 12 hours for 10 days., Starting Tue12/25/2024, Until Tue01/04/2025, Print nystatin (Mycostatin) 429387 UNIT/GM powder Apply topically 2 times daily. [...] Drug use: No Jess Patton MD 12/25/241927 [facility] 12-12-2024 Telephone encounter Note Attempted to call patient to schedule appointment. cannot accept any more messages - called to schedule Hospital follow up [facility] 12-12-2024 Miscellaneous Notes Attempted to call patient to schedule appointment. cannot accept any more [...] Name of caller: Pat Contact phone number: [phone] Relationship to Patient: [facility] Nurse Provider: Stan Practice: [facility] Chief Complaint/Reason for Call: Pat asking for a prescription for Triad Cream. Patient has a few spots that are red in color but are not open yet. Please Advise. Best time of day caller can be reached: Any Patient advised that office/PCP has 24-48 business hours to return their call: Yes documented in this encounter [facility] 12-12-2024 Telephone encounter Note Notified home health of verbal order. T [facility] 12-12-2024 Telephone encounter Note Spoke with Dr. Pierce, she said okay for verbal order to be given for Triad cream. Apply twice daily, to affected area or per their recommendation. [facility] 12-12-2024 Telephone encounter Note Nurse said yes, okay for a verbal order for the Triad Cream, I will call her back to let her know okay if you are agreeable [facility] 12-12-2024 Telephone encounter Note Is This is [...] later time. 40 minutes hospital/ er followup [facility] 12-12-2024 Telephone encounter Note Name of caller: Pat Contact phone number: [phone] Relationship to Patient: [facility] Nurse Provider: Stan Practice: [facility] Chief Complaint/Reason for Call: Pat asking for a prescription for Triad Cream. Patient has a few spots that are red in color but are not open yet. Please Advise. Best time of day caller can be reached: Any Patient advised that office/PCP has 24-48 business hours to return their call: Yes [facility] 12-05-2024 Note Ok for wound care evaluation. [facility] 11-20-2024 Telephone encounter Note Dmitriy aware [facility] 11-20-2024 Telephone encounter Note Dmitriy aware [facility] 11-20-2024 Miscellaneous Notes Dmitriy aware Number listed is OOS That is fine for verbal order. Patient needs a face to face with me if needed ok to do virutallu Name of caller: Dmitriy Contact phone number: [phone] Relationship to Patient: [facility] Provider: Dr. Pierce Practice: [facility] Chief Complaint/Reason for Call: Dmitriy is requesting [...] Name of caller: Jeremi Contact phone number: [phone] Relationship to Patient: [facility] Provider: Dr. Pierce Practice: [facility] Chief Complaint/Reason for Call: Jeremi called in [...] their call: No documented in this encounter [facility] 11-20-2024 Miscellaneous Notes Dmitriy aware Ok for verbal order see other TE Name of caller: Kathy Contact phone number: [phone] Relationship to Patient: [facility] Provider: Dr Pierce Practice: [facility] Chief Complaint/Reason for Call: [facility] is requesting order for PT 1x week for 9 weeks. Please call with a verbal Best time of day caller can be reached: AM Patient advised that office/PCP has 24-48 business hours to return their call: Yes documented in this encounter [facility] 11-20-2024 Telephone encounter Note Number listed is OOS [facility] 11-19-2024 Telephone encounter Note Ok for verbal order see other TE [facility] 11-19-2024 Telephone encounter Note That is fine for verbal order. Patient needs a face to face with me if needed ok to do virutallu [facility] 11-19-2024 Miscellaneous Notes That is fine for verbal order. Patient needs a face to face with me if needed ok to do virutallu Name of caller: Dmitriy Contact phone number: [phone] Relationship to Patient: [facility] Provider: Dr. Pierce Practice: [facility] Chief Complaint/Reason for Call: Dmitriy is requesting [...] Name of caller: Jeremi Contact phone number: [phone] Relationship to Patient: [facility] Provider: Dr. Pierce Practice: [facility] Chief Complaint/Reason for Call: Jeremi called in [...] their call: No documented in this encounter [facility] 11-15-2024 Emergency department Note Robert Guerreroens to transport pt back to assisted living facility, set up via roundtrip. ETA 1100. [facility] 11-15-2024 Emergency department Note Robert Guerreroens to transport pt back to assisted living [...] not crush or chew. EPOETIN MOLLY-EPBX (RETACRIT) 42846 UNIT/ML INJECTION Inject 10,000 Units under the skin. ERGOCALCIFEROL (VITAMIN D-2) 1.25 MG (71855 UT) CAPSULE Take 1.25 mg by mouth [...] (IFEREX 150 PO) Take by mouth. Daily Drf-Zhs-Fhbnko RISPERIDONE (RISPERDAL) 3 MG TABLET Take 2 [...] min Stress: No Stress Concern Present (10/03/2024) [place] [employer] Occupational Health - Occupational Stress Questionnaire Feeling of Stress : Not at all Social Connections: Moderately Isolated (10/03/2024) Social Connection and Isolation Panel [NHANES] Frequency of Communication with Friends and Family: Three times a week Frequency of Social Gatherings with Friends and Family: Once a week Attends Evangelical Services: 1 to 4 times per year [...] DEPARTMENT COURSE and DIFFERENTIAL DIAGNOSIS/MDM: Vitals: Vitals: 11/15/24606 BP: 122/65 BP Location: Right arm Patient Position: Sitting Pulse: 64 Resp: 16 Temp: 36.9 C (98.5 F) TempSrc: Oral SpO2: 100% Weight: 136 kg (300 lb) Height: 1.6 m (5' 3") Medications furosemide (Lasix) injection 40 mg (40 mg IntraVENous Given 11/15/24 06) SCREENINGS [place] Coma Scale Best Eye Response: Spontaneous Best Verbal Response: Oriented Best Motor Response: Follows commands [place] Coma Scale Score: 15 MDM elements: The [...] 11/15/2024 8:37 AM Edith Pierce MD [address] [facility] [address] [facility] [address] Call in 5 days Familia Jeronimo MD [address] [facility] [address] [facility] hospital [address] Call in 5 days Jess Patton MD 11/15/24 1102 Patient arrived via [facility] from nursing facility. Patient states she got dizzy and fell, hitting the back of her head. Patient denies any LOC. No lacerations seen. Pain 8/10. documented in this encounter [facility] 11-15-2024 Emergency department Note Urinary cath removed per verbal order from MD Pooja. [facility] 11-15-2024 Hospital Discharge instructions Jess Patton MD - 11/15/2024 8:35 AM EDT Discontinue Depakote Discontinue Cymbalta The following attachments cannot be sent through Care Everywhere.Kidney Failure Discharge Instructions (Faroese)documented in this encounter [facility] 11-15-2024 Emergency department Triage note Patient arrived via [facility] from nursing facility. Patient states she got dizzy and fell, hitting the back of her head. Patient denies any LOC. No lacerations seen. Pain 03/24. [facility] 11-15-2024 Physician Emergency department Note EMERGENCY DEPARTMENT [...] not crush or chew. EPOETIN MOLLY-EPBX (RETACRIT) 99536 UNIT/ML INJECTION Inject 10,000 Units under the skin. ERGOCALCIFEROL (VITAMIN D-2) 1.25 MG (78532 UT) CAPSULE Take 1.25 mg by mouth [...] (IFEREX 150 PO) Take by mouth. Daily Waw-Lxk-Tnwycs RISPERIDONE (RISPERDAL) 3 MG TABLET Take 2 [...] min Stress: No Stress Concern Present (10/03/2024) [place] [employer] Occupational Health - Occupational Stress Questionnaire Feeling of Stress : Not at all Social Connections: Moderately Isolated (10/03/2024) Social Connection and Isolation Panel [NHANES] Frequency of Communication with Friends and Family: Three times a week Frequency of Social Gatherings with Friends and Family: Once a week Attends Evangelical Services: 1 to 4 times per year [...] 40 mg (40 mg IntraVENous Given 11/15/24 0651) SCREENINGS [place] Coma Scale Best Eye Response: Spontaneous Best Verbal Response: Oriented Best Motor Response: Follows commands Tamara Coma Scale Score: 15 MDM elements: The [...] Emergency Medicine Provider Arslan Kirkland MD 11/15/24655 [facility] Phone: 11-15-2024 Physician Emergency department Note Care [...] 11/15/2024 8:37 AM Edith Pierce MD [address] [facility] [address] [facility] [address] Call in 5 days Familia Jeronimo MD [address] [facility] [address] [facility] hospital [address] Call in 5 days Jess Patton MD 11/15/24 1102 [facility] 11-12-2024 Telephone encounter Note Name of caller: Dmitriy Contact phone number: [phone] Relationship to Patient: [facility] Provider: Dr. Pierce Practice: [facility] Chief Complaint/Reason for Call: Dmitriy is requesting a call back for verbal orders for patient's occupational therapy and states the plan of care is once a week for the next seven weeks for occupational therapy services. Please contact Dmitriy and advise. Best time of day caller can be reached: Any Patient advised that office/PCP has 24-48 business hours to return their call: Yes [facility] 11-12-2024 Miscellaneous Notes Name of caller: Dmitriy Contact phone number: [phone] Relationship to Patient: [facility] Provider: Dr. Pierce Practice: [facility] Chief Complaint/Reason for Call: Dmitriy is requesting [...] Name of caller: Jeremi Contact phone number: [phone] Relationship to Patient: [facility] Provider: Dr. Pierce Practice: [facility] Chief Complaint/Reason for Call: Jeremi called in [...] their call: No documented in this encounter [facility] 11-09-2024 Telephone encounter Note Name of caller: Kathy Contact phone number: [phone] Relationship to Patient: [facility] Provider: Dr Pierce Practice: [facility] Chief Complaint/Reason for Call: [facility] is requesting order for PT 1x week for 9 weeks. Please call with a verbal Best time of day caller can be reached: AM Patient advised that office/PCP has 24-48 business hours to return their call: Yes [facility] 11-08-2024 Telephone encounter Note OV notes faxed and confirmation received [facility] 11-08-2024 Telephone encounter Note Jeremi was notified yesterday, will fax OV notes [facility] 11-07-2024 Telephone encounter Note Ok for verbal order [facility] 11-07-2024 Telephone encounter Note Name of caller: Jeremi Contact phone number: [phone] Relationship to Patient: [facility] Provider: Dr. Pierce Practice: [facility] Chief Complaint/Reason for Call: Jeremi called in [...] business hours to return their call: No [facility] 11-03-2024 Emergency department Note Pt. Left ED via stretcher with EMS. Infante Catheter in place upon transfer as per provider instructions. [facility] 11-03-2024 Emergency department Note Pt. Left ED [...] 30 capsule, Refills: 3 epoetin molly-epbx (Retacrit) 43001 UNIT/ML injection Inject 10,000 Units under the skin. ergocalciferol (Vitamin D-2) 1.25 MG (15998 UT) capsule Take 1.25 mg by mouth [...] (IFEREX 150 PO) Take by mouth. Daily Mzt-Ten-Cvcsll risperiDONE (RisperDAL) 3 MG tablet Take 2 [...] min Stress: No Stress Concern Present (10/03/2024) [employer] - Occupational Stress Questionnaire Feeling of Stress : Not at all Social Connections: Moderately Isolated (10/03/2024) Social Connection and Isolation Panel [NHANES] Frequency of Communication with Friends and Family: Three times a week Frequency of Social Gatherings with Friends and Family: Once a week Attends Evangelical Services: 1 to 4 times per year [...] CALCIUM,IONIZED 4.70 Narrative: Performed by: [facility], [address] [place] [address] CLIA ID: [id number] COMPLETE URINALYSIS WITH REFLEX TO CULTURE Narrative: The following orders were created for panel order Complete Urinalysis with reflex to Culture. Procedure Abnormality Status --------- ------ Complete Urinalysis[[id number]] Abnormal Final result Please view results for [...] AM PATIENT REFERRED TO: Edith Pierce MD [address] [place] [address] [address] [facility] [id number] Brian Chatterjee STOPPERER ASSEMBLER - [address] [place] [address] DISCHARGE MEDICATIONS: Current Discharge Medication List (Comment: [...] DO 11/03/24 0446 documented in this encounter [facility] 11-03-2024 Hospital Discharge instructions Javad Lees DO - 11/03/2024 4:23 AM EDT Follow-up with your primary care physician for repeat lab work in 1 week to make sure your sodium levels are uptrending. Follow-up with your urologist for management of urinary retention. Return to the ER for worsening symptoms. documented in this encounter [facility] 11-03-2024 Physician Emergency department Note EMERGENCY DEPARTMENT [...] mention of complication, not stated as uncontrolled ([facility]) Urinary incontinence nightly SURGICAL HISTORY Past Surgical [...] 30 capsule, Refills: 3 epoetin molly-epbx (Retacrit) 91142 UNIT/ML injection Inject 10,000 Units under the skin. ergocalciferol (Vitamin D-2) 1.25 MG (48402 UT) capsule Take 1.25 mg by mouth [...] (IFEREX 150 PO) Take by mouth. Daily Yrb-Kka-Fnbnpy risperiDONE (RisperDAL) 3 MG tablet Take 2 [...] min Stress: No Stress Concern Present (10/03/2024) [place] [employer] - Occupational Stress Questionnaire Feeling of Stress : Not at all Social Connections: Moderately Isolated (10/03/2024) Social Connection and Isolation Panel [NHANES] Frequency of Communication with Friends and Family: Three times a week Frequency of Social Gatherings with Friends and Family: Once a week Attends Evangelical Services: 1 to 4 times per year [...] CALCIUM,IONIZED 4.70 Narrative: Performed by: [facility], [address] [place] [address] CLIA ID: [id number] COMPLETE URINALYSIS WITH REFLEX TO CULTURE Narrative: The following orders were created for panel order Complete Urinalysis with reflex to Culture. Procedure Abnormality Status --------- ------ Complete Urinalysis[[id number]] Abnormal Final result Please view results for these tests on the individual orders. All other labs were within normal range or not returned as of this dictation. EMERGENCY DEPARTMENT COURSE and DIFFERENTIAL DIAGNOSIS/MDM: Vitals: Vitals: 11/03/24212 BP: 127/88 BP Location: Right arm Patient [...] AM PATIENT REFERRED TO: Edith Pierce MD [address] [place] [address] [address] [facility] [address] Brian Chatterjee, STOPPERER ASSEMBLER - [facility] [address] [facility] [address] DISCHARGE MEDICATIONS: Current Discharge Medication List (Comment: [...] Medicine Provider Javad Lees DO 11/03/24 0446 [facility] 10-08-2024 Telephone encounter Note Patient declined hospital follow up appointment at this time. [facility] 10-08-2024 Miscellaneous Notes Patient declined hospital follow up appointment at this time. See if patient would like to schedule a hospital follow-up please asked the hospital follow-up transfer questions documented in this encounter [facility] 10-08-2024 Telephone encounter Note See if patient would like to schedule a hospital follow-up please asked the hospital follow-up transfer questions [facility] 10-06-2024 Note [facility] 10-03-2024 Note [facility] 09-18-2024 History of Present illness Narrative Images from the original note were not included. [facility] [address] [facility] [address] [facility] [address] Dept: [phone] Dept Loc: [phone] Reason for Visit: Hospital Follow-up ([facility]) Assessment and Plan 1. Psychogenic polydipsia from Kimmy[employer] monitoring. BMP recently done in August. 2. Anemia in stage 4 chronic kidney disease (HCC) ([facility]) CBC nephrology is following the chronic kidney disease. 3. Chronic schizoaffective disorder (HCC) dietary following and prescribing medications increase exercise 4. Morbid obesity with BMI of 45.0-49.9, adult ([facility]) encouraged weight loss 5. HTN (hypertension), benign chronic stable continue hydralazine and metoprolol. 6. Mixed hyperlipidemia check a lipid panel continue the Crestor 10 mg 7. Acquired hypothyroidism currently also has a history of thyroid issues on levothyroxine check a TSH. Patient has a history of chronic pain is seeing chronic pain management. At [facility]. current treatment plan is effective, no change in therapy, orders and follow up as documented in EMR, lab results reviewed with patient, repeat labs ordered prior to next appointment, reviewed compliance with lifestyle measures, reviewed diet, exercise and weight control, reviewed medications and side effects in detail Return visit in 3 months. Subjective HPI is a 59-year-old female patient who is accompanied by her mom for the appointment. 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 She was at rehab for a while and now she has been discharged. Patient does see her manifest clerk on a fairly often basis Dr. Wagner. Recent blood work did show some improvement [...] chew. 30 capsule 3 epoetin molly-epbx (Retacrit) 90439 UNIT/ML injection Inject 10,000 Units under the skin. ergocalciferol (Vitamin D-2) 1.25 MG (60101 UT) capsule Take 1.25 mg by mouth [...] (IFEREX 150 PO) Take by mouth. Daily Grm-Wer-Rzkzmj No current facility-administered medications for this visit. Patient Active Problem List Diagnosis Urge incontinence of urine Dyspnea Anxiety Schizoaffective disorder (CMS/HCC) ([facility]) Chest pain Iron (Fe) deficiency anemia GERD (gastroesophageal reflux disease) Depression Suicidal ideations Acute gastric ulcer without hemorrhage or perforation Hypothyroidism Urinary incontinence Diverticulosis of large intestine without diverticulitis Chronic antral gastritis First degree hemorrhoids Nocturia Rotator cuff strain Osteoarthritis of patellofemoral joint Urge incontinence Urinary retention Localized edema Morbid obesity with BMI of 45.0-49.9, adult ([facility]) Hypomagnesemia JOSE A (acute kidney injury) ([facility]) Chronic bilateral low back pain with bilateral sciatica Primary hypothyroidism Psychogenic polydipsia Pneumonia Hyponatremia Hypertension Bipolar disorder ([facility]) Lung infiltrate on CT Chronic schizoaffective disorder [...] 03/24/2022 Imaging/Testing: POCT glucose meter Performed by: [facility], [address] [place] [address], [place] [address] CLIA ID: [id number] Edith Pierce MD documented in this encounter [facility] 08-31-2024 Note Chart reviewed. 2nd attempt to contact patient for transitions post-discharge outreach. No answer, unable to leave a VM as mailbox is full. Will follow up again. [facility] 08-29-2024 Telephone encounter Note FOLLOW UP QUESTIONS FOR MA/SW: 1. Did you get medications filled and takingthem as instructed from discharge? yes 2. Are you following your discharge instructions from your hospital stay? yes 3. Please confirm patient is scheduled for a follow up appointment within the above time frame. Appt in place [facility] 08-29-2024 Miscellaneous Notes FOLLOW UP QUESTIONS FOR [...] being discharged on 08/25/24. Name of Caller: Zehra [facility] Contact Reason for Appointment: Metabolic Encephalopathy Office Name: [facility] Medication Refills need, if any: n/a Medication Name: n/a documented in this encounter [facility] 08-28-2024 Note Chart reviewed, note d that patient was discharged from [facility] on 08/25/24. Phone call to patient for transitional outreach. No answer and unable to leave a VM at this time. Will attempt to contact patient again. [facility] 08-27-2024 Telephone encounter Note is not accepting messages, attempted to call to ask: FOLLOW UP QUESTIONS FOR MA/SW: 1. Did you get medications filled and takingthem as instructed from discharge? 2. Are you following your discharge instructions from your hospital stay? 3. Please confirm patient is scheduled for a follow up appointment within the above time frame. [facility] 08-23-2024 Telephone encounter Note Patient scheduled for first available RYAN slot, being discharged on 08/25/24. Name of Caller: [facility] Contact Reason for Appointment: Metabolic Encephalopathy Office Name: [facility] Medication Refills need, if any: n/a Medication Name: n/a [facility] 08-10-2024 Hospital course Narrative Discharge Summary Jessy [...] depression, anxiety, hypothyroidism, debility, recent evaluation at [facility] for mechanical fall with right foot contusion/swelling. She presented to [place] [facility] 08/03 from SNF for generalized bodyaches, [...] not crush or chew. ergocalciferol 1.25 MG (30545 UT) capsule Commonly known as: Vitamin D-2 [...] HYDROcodone-acetaminophen 5-325 MG tablet Commonly known as: [place] Take 1 tablet by mouth every 6 [...] Complexity: follow up within 7-14 calendar days (07080) [] Severe Complexity: follow up within 7 calendar days (45719) FOLLOW UP TESTING, PENDING RESULTS OR REFERRALS AT TRANSITIONAL CARE VISIT: [] Yes [] No PENDING STUDIES: DISPOSITION: Acute Rehab FACILITY/HOME CARE AGENCY NAME: [facility] Follow up with Edith Pierce MD [address] [facility] [address] [facility] [address] INSTRUCTIONS TO MA/SW: Please call patient on [...] 08/10/2024, 2:18 PM documented in this encounter [facility] 08-10-2024 Note [facility] 08-10-2024 Nurse Note Patient discharged to facility: [facility]. Report called to santa. Continuity of Care complete, and a copy provided in transport packet. IV removed Transportation robert shirley scheduled to transport patient to facility. Patient left with all belongings. [facility] 08-10-2024 Nurse Note Patient discharged to facility: [facility]. Report called to santa. Continuity of [...] bloodwork, provider notified. documented in this encounter [facility] 08-10-2024 Miscellaneous Notes Patient Choice Patient Name: JESSY MCKEON Date of : 1965 All Providers Sent Referral Name: [facility] Address: [address] [place] [address] [facility] via Careport per TCC request. Electronically signed by [facility] Lukasz Mcdaniels Discharge order noted. CM portion of IRASEMA updated. Task sent to [facility] to send discharge paperwork to [facility]. SW arranging transportation. RN aware. Pt dc to [facility]- [phone] SW asked to arrange transport. Trip requested thru [employer]. Trip claimed by Robert Sánchez for 1330 Pt aware. SW notified mother, Pita SW notified RN, community pharmacist and [facility] liaison. SW left message for RN at [facility]. Spoke with Pita, the patients mother, agreeable with [facility]. Secure chat Dr Schroeder, patient is ready today. [facility] land surveyor, Croine is following. Care Management Progress Note [facility] land surveyor following for DC, hopefully today. From [place]. Will call Pita, mother later, called her [...] Progressing Care Management Progress Note Nephrology following. [facility] Shrink Pit Operator following for DC. From [facility]. Length of Stay (Days): 6 GMLOS: 2.6 [...] Outcome: Progressing Referral placed to [facility] via Careport per TCC [...] is maintained or improved Outcome: Progressing [facility] land surveyor stated they would take patient. Task sent via Careport to [facility] to place referral for [facility]. , will place Amb request in Round Trip as Will Call for [facility]. Trip can be edited if pt not able to go to [facility]. Spoke with patient, Stated [facility], will have [facility] Shrink Pit Operator aware. Plan SNF at al. SW following and will update AL at al. SW reviewed media- no DPOA on file. SW checked probate court- ( [facility]) no results of guardianship. Care Management Progress Note [place] was from [place] agreed to SNF. Has list, will stop [...] updated SW as pt is normally from [place] LOC. Plan is SNF TBD. TCC will follow for SNF choices. Pt from [place] in [place]. SW called and spoke with nurse. Pt [...] achieved/maintained Outcome: Progressing documented in this encounter [facility] 08-10-2024 Note Formatting of this n ote might be different from the original. Patient Choice Patient Name: JESSY MCKEON Date of : 1965 All Providers Sent Referral Name: [facility] Address: [address] [place] [address] [facility] 08-10-2024 Note Formatting of this n ote might be different from the original. Patient Choice Patient Name: JESSY MCKEON Date of : 1965 All Providers Sent Referral Name: [facility] Address: [address] [place] [address] [facility] 08-10-2024 Note Formatting of this n ote might be different from the original. MAR & Discharge med list transmitted to [facility] via Careport per TCC request. Electronically signed by [facility] Lukasz Mcdaniels [facility] 08-10-2024 Note Formatting of this n ote might be different from the original. MAR & Discharge med list transmitted to [facility] via Careport per TCC request. Electronically signed by [facility] Lukasz Mcdaniels [facility] 08-10-2024 Note Formatting of this n ote might be different from the original. Discharge order noted. CM portion of IRASEMA updated. Task sent to [facility] to send discharge paperwork to [facility]. SW arranging transportation. RN aware. [facility] 08-10-2024 Note Formatting of this n ote might be different from the original. Discharge order noted. CM portion of IRASEMA updated. Task sent to [facility] to send discharge paperwork to [facility]. SW arranging transportation. RN aware. [facility] 08-10-2024 Note Formatting of this n ote might be different from the original. Pt dc to [facility] [phone] SW asked to arrange transport. Trip requested thru [employer]. Trip claimed by [employer] for 1330 Pt aware. SW notified mother, Pita SW notified RN, community pharmacist and [facility] liaison. SW left message for RN at [facility]. [facility] 08-10-2024 Note Formatting of this n ote might be different from the original. Pt dc to [facility] [phone] SW asked to arrange transport. Trip requested thru [employer]. Trip claimed by Robert Shirley for 1330 Pt aware. SW notified mother, Pita SW notified RN, community pharmacist and [facility] liaison. SW left message for RN at [facility]. [facility] 08-10-2024 Note Formatting of this n ote might be different from the original. Spoke with Pita, the patients mother, agreeable with [facility]. Secure chat Dr Schroeder, patient is ready today. [facility] surveyor, Bree is following. [facility] 08-10-2024 Note Formatting of this n ote might be different from the original. Spoke with Pita, the patients mother, agreeable with [facility]. Secure chat Dr Schroeder, patient is ready today. [facility] surveyor, Bree is following. [facility] 08-10-2024 History of Present illness Narrative Nutrition update completed. Chart reviewed. Patient to be monitored and followed by the diet audiometric technician. AMANDA Pedersen Hospitalist Progress Note 08/09/2024 Assessment/Plan: Data: (CAT1) [...] encourage ambulation Discharge Disposition: Anticipate DC to [facility] pending acceptance Total time spent [...] depression, anxiety, hypothyroidism, debility, recent evaluation at [facility] for mechanical fall with right foot contusion/swelling. She presented to [place] [facility] 08/03 from [facility] for generalized bodyaches, leg edema. Admitted for [...] urine, unspecified Sciatica SOB (shortness of breath) GRNAT Type II or unspecified type diabetes mellitus [...] Pita Jara Mobile Relation: Parent Preferred language: Faroese [employer]lass Quality Technician needed? No Secondary Emergency Contact: Mamadou Jara Relation: Father Diamante Schroeder MD Division of Hospitalist Medicine [employer] Images from the original note were not included. OCCUPATIONAL THERAPY [facility] Treatment Note Name/MRN: Jessy Mckeon ([id number]) Date of : 1965 Age: 59 y.o. Room[facility]Bed: [facility] Discharge Recommendation: Longterm Facility Prior Level of Function Prior Level [...] original note were not included. PHYSICAL THERAPY [facility] Treatment Note Name/MRN: Jessy Mckeon ([id number]) Date of : 1965 Age: 59 y.o. Room/Bed: [facility] B Discharge Recommendation: Longterm Facility Equipment Needed: No Prior Level of Function Prior Level of ADL Function: Required Assist Prior Level of Mobility: Required Assist; Device: Front wheeled walker Prior Level of Transfers: Required Assist Assessment Patient was in bed at the onset of this session. She is pleasantly demanding. She likes to be called "Nidhi". She is from an [place] in [place], has bilateral LE edema. She has Aspergers [...] Raw Score (No Stairs) : 16 JH-HLM JH-HLM Score: Walked 25 ft or more (i.e. [...] SNF next 1-3 days pending clinical improvement, network systems consultant recommendations Total time spent (which include [...] depression, anxiety, hypothyroidism, debility, recent evaluation at [facility] for mechanical fall with right foot contusion/swelling. She presented to [place] 08/03 from SNF for generalized bodyaches, [...] Pita Jara Mobile Relation: Parent Preferred language: Faroese Fiberglass Quality Technician needed? No Secondary Emergency Contact: Mamadou Jara Relation: Father Diamante Schroeder MD Division of Hospitalist Medicine [facility] Images from the original note were not included. Nephrology Progress Note Patient: Jessy Mckeon Room number: W5-525/W5-525 B Date of Admit: 08/03/2024 LOS: 5 days Referring physician: Diamante Schroeder MD Outpatient Breakfast Supervisor: Madan Wagner MD Reason for Consult: Asked to see/evaluate by primary service for opinion regarding: abnormal renal labs. Assessment/Plan: 1. JOSE A on CKD stage IV with proteinuria-baseline Scr 2.4 mg/dL in 2022-early 2023. Recent admit in Jun 2024 with Scr 2.6-2.8 mg/dL. Preston related to prior lithium use, tubulointerstitial disease [...] < 25 ml/min. Pending placement to new [facility] We will continue to follow along peripherally. Please text/call/page with any questions or concerns. Kavon Galo, DO Nephrology [facility] ([facility]) Pager: [phone] Office Office Electronically Signed on 08/08/2024 at [...] kidney disease, unspecified CKD stage [N18.9]. Recent [place] [facility] evaluation after mechanical fall with R foot contusion/swelling. Sent to [facility] ER for generalized body aches, leg edema, and patient claim of current facility being unable to attend to her needs. BNP 784, weight 262 lbs (was 275 lbs in Jun 2024). Consulted for JOSE A on CKD - baseline Scr 2.4 mg/dL in 2022-early 2023. Recent admit in Jun 2024 with Scr 2.6-2.8 mg/dL. Preston related to prior lithium use, tubulointerstitial disease [...] (H) 08/06/2024 Lab Results Component Value Date [id number] 04/05/2022 FOLATE >20.0 04/05/2022 Recent Labs [...] labs, radiologic studies and notes. [facility] office: [phone] Pager: [phone] Images from the original note were not included. PHYSICAL THERAPY [facility] Treatment Note Name/MRN: Jessy Mckeon ([id number]) Date of : 1965 Age: 59 y.o. Room/Bed: [facility] B Discharge Recommendation: Longterm Facility Equipment Needed: (tbd) Prior Level of [...] days Referring physician: Diamante Schroeder MD Outpatient Breakfast Supervisor: Madan Wagner MD Reason for Consult: Asked to see/evaluate by primary service for opinion regarding: abnormal renal labs. Assessment/Plan: 1. JOSE A on CKD stage IV with proteinuria-baseline Scr 2.4 mg/dL in 2022-early 2023. Recent admit in Jun 2024 with Scr 2.6-2.8 mg/dL. Preston related to prior lithium use, tubulointerstitial disease [...] kidney disease, unspecified CKD stage [N18.9]. Recent [place] [facility] evaluation after mechanical fall with R foot contusion/swelling. Sent to [facility] ER for generalized body aches, leg edema, and patient claim of current facility being unable to attend to her needs. BNP 784, weight 262 lbs (was 275 lbs in Jun 2024). Consulted for JOSE A on CKD - baseline Scr 2.4 mg/dL in 2022-early 2023. Recent admit in Jun 2024 with Scr 2.6-2.8 mg/dL. Preston related to prior lithium use, tubulointerstitial disease [...] (H) 08/06/2024 Lab Results Component Value Date [id number] 913 04/05/2022 FOLATE >20.0 04/05/2022 Recent Labs [...] labs, radiologic studies and notes. [place] office: [phone] Pager: [phone] Hospitalist Progress Note 08/07/2024 Assessment/Plan: Data: (CAT1) [...] SNF next 1-3 days pending clinical improvement, network systems consultant recommendations Total time spent (which include [...] Date: 08/03/2024 PCP: Edith Pierce MD Room#: [facility] Brief Hospital course: Patient is a 59-year-old female with history of CKD 4, HTN, HLD, obesity, as Buerger's syndrome, bipolar disorder, depression, anxiety, hypothyroidism, debility, recent evaluation at [facility] for mechanical fall with right foot contusion/swelling. She presented to [place] [facility] 08/03 from [facility] for generalized bodyaches, leg edema. Admitted for [...] Emergency Contact Information Primary Emergency Contact: EstefaniPita [employer] Relation: Parent Preferred language: Faroese [employer] Quality Technician needed? No Secondary Emergency Contact: EstefaniMamadou Relation: Father Patiencenicol Olga Schroeder MD Division of Hospitalist Medicine [employer] Images from the original note were not included. Nephrology Progress Note Patient: Jessy Mckeon Room number: W5-525/W5-525 B Date of Admit: 08/03/2024 LOS: 3 days Referring physician: Kevin Grimes DO Outpatient Breakfast Supervisor: Madan Wagner MD Reason for Consult: Asked to see/evaluate by primary service for opinion regarding: abnormal renal labs. Assessment/Plan: 1. JOSE A on CKD stage IV with proteinuria-baseline Scr 2.4 mg/dL in 2022-early 2023. Recent admit in Jun 2024 with Scr 2.6-2.8 mg/dL. Preston related to prior lithium use, tubulointerstitial disease [...] kidney disease, unspecified CKD stage [N18.9]. Recent [place] [facility] evaluation after mechanical fall with R foot contusion/swelling. Sent to [facility] ER for generalized body aches, leg edema, and patient claim of current facility being unable to attend to her needs. BNP 784, weight 262 lbs (was 275 lbs in Jun 2024). Consulted for JOSE A on CKD - baseline Scr 2.4 mg/dL in 2022-early 2023. Recent admit in Jun 2024 with Scr 2.6-2.8 mg/dL. Preston related to prior lithium use, tubulointerstitial disease [...] (H) 08/06/2024 Lab Results Component Value Date [id number] 913 04/05/2022 FOLATE >20.0 04/05/2022 Recent Labs 08/04/24 0033 08/06/24 0410 NA 136 130* K 3.9 4.3 CL 105 101 CO2 24 22 BUN 23 30* CREATININE 2.88* 3.13* GLUCOSE [...] labs, radiologic studies and notes. A office: [phone] Pager: [phone] Images from the original note were not included. OCCUPATIONAL THERAPY [facility] Initial Evaluation Name/MRN: Jessy Mckeon ([id number]) Evaluation Date: 08/06/2024 Date of : 1965 Admission Date: 08/03/2024 9:41 AM Age: 59 y.o. Room/Bed: [facility] B Discharge Recommendation: Continue to assess pending progress, Longterm Facility Assessment IMPRESSION: Patient admit due to [...] indep and safety. OT recommends SNF [place], patient requires more care than available at [facility]. Admitting Diagnosis: global pain, increased fluid Performance [...] reflux Anxiety Arthritis Asperger syndrome Bipolar disorder ([facility]) Chronic kidney disease stage 4 kidney failure Chronic pain Depression Edema of both legs GERD (gastroesophageal reflux disease) Hemorrhoids Hyperlipidemia Hypertension Hypothyroidism Iron (Fe) deficiency anemia Nephrogenic diabetes insipidus ([facility]) Pain management Retention of urine, unspecified Sciatica SOB (shortness of breath) GRANT Type II or unspecified type diabetes mellitus without mention of complication, not stated as uncontrolled ([facility]) Urinary incontinence nightly Past Surgical History: Past Surgical History: Procedure Laterality Date 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 CHOLECYSTECTOMY COLON SURGERY c-diff COLONOSCOPY 03/28/2018 no polyps UPPER GASTROINTESTINAL ENDOSCOPY 03/28/2018 Admission Diagnosis: Patient Active Problem List Diagnosis Date Noted Fluid overload 08/03/2024 Hypervolemia, unspecified hypervolemia type 08/03/2024 Acute cystitis without hematuria 06/28/2024 Chronic renal disease, stage IV ([facility]) 06/20/2023 Chronic kidney disease, stage 3b ([facility]) 06/20/2023 Urinary tract infection without hematuria, site unspecified 03/17/2023 Urinary tract infection 03/16/2023 Depression 12/23/2021 Localized edema 01/11/2019 Schizoaffective disorder (CMS/HCC) ([facility]) 06/05/2018 Suicidal ideations 05/22/2018 Chronic schizoaffective disorder ([facility]) 05/22/2018 Acute gastric ulcer without hemorrhage or perforation 03/28/2018 Diverticulosis of large intestine without diverticulitis 03/28/2018 Chronic antral gastritis 03/28/2018 First degree hemorrhoids 03/28/2018 Dyspnea 03/03/2018 Urinary retention 03/02/2018 Chest pain 02/14/2018 Hyponatremia 02/12/2018 Hypothyroidism 10/12/2017 Morbid obesity with BMI of 45.0-49.9, adult ([facility]) 10/12/2017 Hypomagnesemia 10/12/2017 JOSE A (acute kidney injury) ([facility]) 10/12/2017 Chronic bilateral low back pain with bilateral sciatica 10/12/2017 Psychogenic polydipsia 10/12/2017 Hypertension 10/12/2017 Bipolar disorder ([facility]) 10/12/2017 Iron (Fe) deficiency anemia 10/09/2017 Primary [...] to Person Social/Functional History Patient admitted from [facility]. Assistive Equipment: front wheeled walker Prior Level [...] Daily Activity Raw Score: 13 ADL Inpatient [facility] G-Code Modifier: CL Plan Pt would benefit [...] of Care supervision is transferred to a [facility] Therapy Services Occupational Therapist. Goals and/or treatment plan was established in collaboration with patient/family/other representatives. Hospitalist Progress Note - [place] - [employer] ([facility]) 08/06/2024 8:29 AM [phone]: Please page me for patient care issues. [phone]: Please page [facility] Hospitalist - [facility] for any issues. Subjective and Objective: Admit [...] [Urine:900 (0.2 mL/kg/hr)] Weight: 119 kg @IODETAILS@ @[id number]@ Medications: acetaminophen, 650 mg, Oral, TID amLODIPine, [...] "CHOL" No results found for: "PHART", "PO2ART", "SJS8HCF" No results for input(s): "INR" in the [...] Emergency Contact Information Primary Emergency Contact: EstefaniPita [employer] Relation: Parent Preferred language: Faroese [employer] Quality Technician needed? No Secondary Emergency Contact: EstefaniMamadou Relation: Father Kevin Grimes DO Division of Hospitalist Medicine Inpatient Medical Services/[facility] Images from the original note were not included. OCCUPATIONAL THERAPY [facility] Name/MRN: Jessy Mckeon ([id number]) Date: 08/05/2024 OT eval and treatment received. Pt chart reviewed. Pt asleep upon OT arrival, pt difficult to wake, pt would open eyes briefly and then close them, pt unable to stay alert at this time. Will re-attempt as schedule allows. Wily Hendricks OT Nutrition rescreen completed. Chart reviewed. Patient to be monitored and followed by the diet audiometric technician. Hospitalist Progress Note - [facility] - Acute Care [facility] ([facility]) 08/05/2024 8:40 AM [phone]: Please page me for patient care issues. [phone]: Please page [facility] Hospitalist - [facility] for any issues. Subjective and Objective: Admit [...] [Urine:1200 (0.3 mL/kg/hr)] Weight: 118.4 kg @IODETAILS@ @[id number]@ Medications: acetaminophen, 650 mg, Oral, TID amLODIPine, [...] "CHOL" No results found for: "PHART", "PO2ART", "UCQ9OMA" No results for input(s): "INR" in the [...] 08/06 - 08/13 - [place] to [place] - Pending the following [...] Pita [employer] Relation: Parent Preferred language: Faroese [employer] Quality Technician needed? No Secondary Emergency Contact: Mamadou Jara Relation: Father Kevin Grimes DO [facility]/[place] Images from the original note were not included. PHYSICAL THERAPY [facility] Initial Evaluation Name/MRN: Jessy Mckeon ([id number]) Evaluation Date: 08/04/2024 Date of : 1965 Admission Date: 08/03/2024 9:41 AM Age: 59 y.o. Room/Bed: [facility] B Discharge Recommendation: Longterm Facility Equipment Needed: No Assessment IMPRESSION: Patient admitted to hospital due to fluid overload and severe global pain. Patient admitted from [facility] and reports that they are unable to fully take care of her. Patient reports 10/10 global pain with all mobility. Patient requires modA for supine <-> sit and for sitting at EOB x 5 minutes. Patient unwilling to complete transfer or trial standing. Patient uses walker for short distance ambulation at [facility] per patient. A&O x 3 but very [...] to therapy following extensive education and motivation. 05/24 global body pain/ RN present and aware. Pain: 0-10 pain scale: 1010 Location: "Everywhere" Past Medical History: Past Medical History: Diagnosis Date Acid reflux Anxiety Arthritis Asperger syndrome Bipolar disorder ([facility]) Chronic kidney disease stage 4 kidney failure Chronic pain Depression Edema of both legs GERD (gastroesophageal reflux disease) Hemorrhoids Hyperlipidemia Hypertension Hypothyroidism Iron (Fe) deficiency anemia Nephrogenic diabetes insipidus ([facility]) Pain management Retention of urine, unspecified Sciatica SOB (shortness of breath) GRANT Type II or unspecified type diabetes mellitus without mention of complication, not stated as uncontrolled ([facility]) Urinary incontinence nightly Past Surgical History: Past Surgical History: Procedure Laterality Date 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 CHOLECYSTECTOMY COLON SURGERY c-diff COLONOSCOPY 03/28/2018 no polyps UPPER GASTROINTESTINAL ENDOSCOPY 03/28/2018 Admission Diagnosis: Patient Active Problem List Diagnosis Date Noted Fluid overload 08/03/2024 Hypervolemia, unspecified hypervolemia type 08/03/2024 Acute cystitis without hematuria 06/28/2024 Chronic renal disease, stage IV ([facility]) 06/20/2023 Chronic kidney disease, stage 3b ([facility]) 06/20/2023 Urinary tract infection without hematuria, site unspecified 03/17/2023 Urinary tract infection 03/16/2023 Depression 12/23/2021 Localized edema 01/11/2019 Schizoaffective disorder ([facility]/HCC) ([facility]) 06/05/2018 Suicidal ideations 05/22/2018 Chronic schizoaffective disorder ([facility]) 05/22/2018 Acute gastric ulcer without hemorrhage or perforation 03/28/2018 Diverticulosis of large intestine without diverticulitis 03/28/2018 Chronic antral gastritis 03/28/2018 First degree hemorrhoids 03/28/2018 Dyspnea 03/03/2018 Urinary retention 03/02/2018 Chest pain 02/14/2018 Hyponatremia 02/12/2018 Hypothyroidism 10/12/2017 Morbid obesity with BMI of 45.0-49.9, adult ([facility]) 10/12/2017 Hypomagnesemia 10/12/2017 JOSE A (acute kidney injury) ([facility]) 10/12/2017 Chronic bilateral low back pain with bilateral sciatica 10/12/2017 Psychogenic polydipsia 10/12/2017 Hypertension 10/12/2017 Bipolar disorder (HCC) 10/12/2017 Iron (Fe) deficiency anemia 10/09/2017 Primary [...] Hearing: normal Social/Functional History Patient admitted from [facility]. Assistive Equipment: front wheeled walker Prior Level [...] Unable to attempt this date due to 05/24 global pain. Ambulation Did not assess this [...] Raw Score (No Stairs) : 7 [facility] Score: Sat at edge of bed Plan [...] of Care supervision is transferred to a [facility] Therapy Services Physical Therapist. Goals and/or treatment plan was established in collaboration with patient/family/other representatives. Hospitalist Progress Note - [facility] - [employer] ([facility]) 08/04/2024 7:48 AM [phone]: Please page me for patient care issues. [phone]: Please page [facility] Hospitalist - [facility] for any issues. Subjective and Objective: Admit Date: 08/03/2024 PCP: Edith Pierce MD Chief Complaint Patient presents with Joint Pain Adult diet Regular Dietary Orders (From admission, onward) Start Ordered 08/03/242225 Adult diet Regular Diet effective now Question: Diet type Answer: Regular 08/03/245 I/O last 3 completed shifts: In: 500 (4.2 mL/kg) [P.O.:500] Out: 1200 (10.1 mL/kg) [Urine:1200 (0.3 mL/kg/hr)] Weight: 118.9 kg @IODETAILS@ @[id number]@ Medications: amLODIPine, 5 mg, Oral, Daily divalproex, [...] 4.4 3.9 CL 102 101 105 CO2 21* 24 24 BUN 19 23 23 CREATININE 3.18* 2.94* 2.88* GLUCOSE 94 85 95 Recent Labs 08/01/24 1511 08/03/24 1040 AST 15 20 ALT <6 <6 BILITOT 0.4 0.3 ALKPHOS 76 75 No results found for: "TRIG", "HDL", "LDLCALC", "CHOL" No results found for: "PHART", "PO2ART", "INC2ZJI" No results for input(s): "INR" in the [...] 08/06 - 08/13 - [place] - Pending the following [...] Pita [employer]ara [employer] Relation: Parent Preferred language: Faroese [employer] Quality Technician needed? No Secondary Emergency Contact: EstefaniMamadou Relation: Father Kevin Grimes DO Division of Hospitalist Medicine Inpatient Medical Services/[facility] documented in this encounter [facility] 08-10-2024 Note Formatting of this n ote might be different from the original. [facility] [place] Will call Pita, mother later, called her last night and left a message. Length of Stay (Days): 7 GMLOS: 2.6 [facility] 08-10-2024 Note Formatting of this n ote might be different from the original. Care Management Progress Note [facility] land surveyor following for [place], hopefully today. [place] Will call Pita, mother later, called her last night and left a message. Length of Stay (Days): 7 GMLOS: 2.6 [facility] 08-10-2024 Plan of care note Problem: Knowledge [...] integrity is maintained or improved Outcome: Progressing [facility] 08-09-2024 Note Formatting of this n ote might be different from the original. Care Management Progress Note [facility]ph[facility] following. [facility] [place]. [place] Length of Stay (Days): 6 GMLOS: 2.6 [facility] 08-09-2024 Note Formatting of this n ote might be different from the original. Care Management Progress Note Nephrology following. [facility] Shrink Pit Operator following for [place]. [place] Length of Stay (Days): 6 GMLOS: 2.6 [facility] 08-09-2024 Note Care Management Prog ress Note Nephrology following. [facility] Shrink Pit Operator following for [place]. [place] Length of Stay (Days): 6 GMLOS: 2.6 [facility] 08-09-2024 Plan of care note Problem: Knowledge [...] integrity is maintained or improved Outcome: Progressing [facility] 08-09-2024 Nurse Note Pt denies pain [...] noted to be within reach Safety maintained [facility] 08-08-2024 Plan of care note Problem: Knowledge Deficit Goal: Patient/family/caregiver demonstrates understanding of disease process, treatment plan, medications, and discharge instructions Outcome: Progressing Problem: Potential for Falls Goal: I will remain free of falls Outcome: Progressing Problem: Discharge Barriers Goal: My discharge needs are met Outcome: Progressing [facility] 08-08-2024 Plan of care note Problem: [...] integrity is maintained or improved Outcome: Progressing [facility] 08-07-2024 Note Formatting of this n ote might be different from the original. [facility] per [facility] request. Await review and response regarding ability to accept. TCC notified. [facility] 08-07-2024 Note Formatting of this n ote might be different from the original. Ref[facility] per TCC request. Await review and response regarding ability to accept. TCC notified. [facility] 08-07-2024 Note [facility] per TCC request. Await review and response regarding ability to accept. TCC notified. [facility] 08-07-2024 Plan of care note Problem: Knowledge [...] integrity is maintained or improved Outcome: Progressing [facility] 08-07-2024 Note Formatting of this n ote might be different from the original. [facility]. Task sent via [facility] to [facility] to place [facility] , [facility] 08-07-2024 Note Formatting of this n ote might be different from the original. [facility]. Task sent via [facility] to [facility] to place [facility] , [facility] 08-07-2024 Note [facility]. Task sent via [facility] to [facility] to place [facility] , [facility] 08-07-2024 Note Formatting of this n ote might be different from the original. SW will place Amb request in Round Trip as Will Call for [facility]. Trip can be edited if pt not able to go to [facility]. [facility] 08-07-2024 Note Formatting of this n ote might be different from the original. SW will place Amb request in Round Trip as Will Call for [facility]. Trip can be edited if pt not able to go to [facility]. [facility] 08-07-2024 Note Formatting of this n ote might be different from the original. Spoke with patient, Stated [facility], will have [facility] Operator aware. [facility] 08-07-2024 Note Formatting of this n ote might be different from the original. Spoke with patient, [facility], [facility] aware. [facility] 08-07-2024 Note Formatting of this n ote might be different from the original. Plan SNF at al. SW following and will update [place] at [place]. [facility] 08-07-2024 Note Formatting of this n ote might be different from the original. Plan SNF at al. SW following and will update [place] at al. [facility] 08-07-2024 Note Formatting of this n ote might be different from the original. SW reviewed media- no DPOA on file. SW checked probate court- ( [facility]) no results of guardianship. [facility] 08-07-2024 Note Formatting of this n ote might be different from the original. SW reviewed media- no DPOA on file. SW checked probate court- ( [facility]) no results of guardianship. [facility] [employer] 08-07-2024 Note Formatting of this n ote might be different from the original. Care Management Progress Note [place] agreed to SNF. Has list, will stop by today and get choices. Length of Stay (Days): 4 GMLOS: 2.6 [facility] [employer] 08-07-2024 Note Formatting of this n ote might be different from the original. Care Management Progress Note Patient was [place] agreed to SNF. Has list, will stop by today and get choices. Length of Stay (Days): 4 GMLOS: 2.6 [facility] 08-07-2024 Note Care Management Prog ress Note [place] agreed to [place]. Has list, will stop by today and get choices. Length of Stay (Days): 4 GMLOS: 2.6 [facility] 08-07-2024 Plan of care note Problem: Knowledge [...] integrity is maintained or improved Outcome: Progressing [facility] 08-06-2024 Note Formatting of this n [...] updated SW [place] Plan is SNF TBD. TCC will follow for SNF choices. [facility] 08-06-2024 Note Formatting of this n [...] VM with mother Pita at this time. [facility] updated SW as pt is normally from [facility]. Plan is SNF TBD. TCC will follow for SNF choices. [facility] 08-06-2024 Note Formatting of this n ote might be different from the original. Pt from [facility] in [place]. SW called and spoke with nurse. Pt is a one person assist for dressing bathing, etc. Pt was able to use a walker by herself to get meals and meds. Sometimes pt does not want to walk to get meals so thy bring them to her. Pt will need to be a one person assist to return. SW will follow. [facility] 08-06-2024 Note Formatting of this n ote might be different from the original. Pt from [facility] in [place]. [place] called and spoke with nurse. Pt is a one person assist for dressing bathing, etc. Pt was able to use a walker by herself to get meals and meds. Sometimes pt does not want to walk to get meals so thy bring them to her. Pt will need to be a one person assist to return. SW will follow. [facility] [employer] 08-06-2024 Plan of care note Problem: Knowledge Deficit Goal: Patient/family/caregiver demonstrates understanding of disease process, treatment plan, medications, and discharge instructions Outcome: Progressing Problem: Potential for Falls Goal: I will remain free of falls Outcome: Progressing [facility] 08-05-2024 Plan of care note Problem: Knowledge Deficit Goal: Patient/family/caregiver demonstrates understanding of disease process, treatment plan, medications, and discharge instructions Outcome: Progressing Problem: Potential for Falls Goal: I will remain free of falls Outcome: Progressing Problem: Discharge Barriers Goal: My discharge needs are met Outcome: Progressing Problem: Excessive Fluid Volume Goal: Fluid and electrolyte balance are achieved/maintained Outcome: Progressing [facility] 08-05-2024 Hospital Discharge instructions Jarrell Steiner [...] Pita Jara Mobile Relation: Parent Preferred language: Faroese Fiberglass Quality Technician needed? No Secondary Emergency Contact: Mamadou Jara [place] Relation: Father Past Surgical History: Past Surgical [...] Morbid obesity with BMI of 45.0-49.9, adult ([facility]) Hypomagnesemia JOSE A (acute kidney injury) ([facility]) Chronic bilateral low back pain with bilateral sciatica Primary hypothyroidism Psychogenic polydipsia Pneumonia Hyponatremia Hypertension Bipolar disorder (HCC) Lung infiltrate on CT Chronic schizoaffective disorder ([facility]) Isolation/Infection: No active isolations No active infections [...] Minimal assistance Toileting Minimal assistance Feeding Independent [place]vel [place] Minimal assistance Med Delivery yes Wound Care [...] Date: 08/03/24 Discharging to Facility/ Agency Name: [facility] Address:[address] [place] [address] Fax: Dialysis Facility (if applicable) Name: Address: Dialysis Schedule: Phone: Fax: Quality Assurance Supervisor Body/Ocean Export Account Manager signature: ICIAN SECTION Name: Jessy Jansen Diego Prognosis: excellent Condition at Discharge: stable Rehab [...] to a nursing facility directly from an [facility] or a unit of a [facility] that is not operated by or licensed by [facility] under section 5119.14 or 5160-3-15.1 5 The individual requires the level of services provided by a nursing facility for the condition for which he or she was treated in the hospital and, Physician Certification: I certify the above information and transfer of Jessy Mckeon is necessary for the continuing treatment of the diagnosis listed and that she requires halfway facility for less than 30 days. Update Admission H&P: No change in H&P PHYSICIAN SIGNATURE: documented in this encounter [facility] 08-05-2024 Nurse Note Pt refused bloodwork multiple times throughout night, benefits of daily bloodwork explained to pt. Unable to collect bloodwork, provider notified. [facility] 08-04-2024 Plan of care note Problem: Knowledge Deficit Goal: Patient/family/caregiver demonstrates understanding of disease process, treatment plan, medications, and discharge instructions Outcome: Progressing Problem: Potential for Falls Goal: I will remain free of falls Outcome: Progressing Problem: Discharge Barriers Goal: My discharge needs are met Outcome: Progressing Problem: Excessive Fluid Volume Goal: Fluid and electrolyte balance are achieved/maintained Outcome: Progressing [facility] 08-04-2024 Consult note Associated Order (s): IP CONSULT TO NEPHROLOGY Images from the original note were not included. Initial Nephrology Consult Note Patient: Jessy Mckeon Room number: W5-525/W5-525 B Date of Admit: 08/03/2024 LOS: 1 days Referring physician: Kevin Grimes DO Outpatient Breakfast Supervisor: Madan Wagner MD Reason for Consult: Asked to see/evaluate by primary service for opinion regarding: abnormal renal labs. Assessment/Plan: 1. CKD stage IV with proteinuria-baseline Scr 2.4 mg/dL in 2022-early 2023. Recent admit in Jun 2024 with Scr 2.6-2.8 mg/dL. Preston related to prior lithium use, tubulointerstitial disease [...] kidney disease, unspecified CKD stage [N18.9]. Recent [place] [facility] evaluation after mechanical fall with R foot contusion/swelling. Sent to [facility] ER for generalized body aches, leg edema, [...] Pulse: 78 78 83 72 Resp: 18 12 18 18 Temp: 36.2 C (97.1 F) 36.4 [...] 75 04/17/2024 Lab Results Component Value Date [id number] 913 04/05/2022 FOLATE >20.0 04/05/2022 Recent Labs [...] reviewed MARS, labs, radiologic studies and notes. [facility] office: [phone] Pager: [phone] [facility] [employer] Phone: 08-04-2024 Consult note Associated Order (s): IP CONSULT TO NEPHROLOGY Images from the original note were not included. Initial Nephrology Consult Note Patient: Jessy Mckeon Room number: W5-525/W5-525 B Date of Admit: 08/03/2024 LOS: 1 days Referring physician: Kevin Grimes DO Outpatient Breakfast Supervisor: Madan Wagner MD Reason for Consult: Asked to see/evaluate by primary service for opinion regarding: abnormal renal labs. Assessment/Plan: 1. CKD stage IV with proteinuria-baseline Scr 2.4 mg/dL in 2022-early 2023. Recent admit in Jun 2024 with Scr 2.6-2.8 mg/dL. Preston related to prior lithium use, tubulointerstitial disease [...] kidney disease, unspecified CKD stage [N18.9]. Recent [place] [facility] evaluation after mechanical fall with R foot contusion/swelling. Sent to [facility] ER for generalized body aches, leg edema, [...] Pulse: 78 78 83 72 Resp: 18 12 18 18 Temp: 36.2 C (97.1 F) 36.4 [...] 75 04/17/2024 Lab Results Component Value Date [id number] 913 04/05/2022 FOLATE >20.0 04/05/2022 Recent Labs [...] reviewed MARS, labs, radiologic studies and notes. [facility] office: [phone] Pager: [phone] documented in this encounter [facility] 08-04-2024 Plan of care note Problem: Knowledge Deficit Goal: Patient/family/caregiver demonstrates understanding of disease process, treatment plan, medications, and discharge instructions Outcome: Progressing Problem: Potential for Falls Goal: I will remain free of falls Outcome: Progressing Problem: Discharge Barriers Goal: My discharge needs are met Outcome: Progressing Problem: Excessive Fluid Volume Goal: Fluid and electrolyte balance are achieved/maintained Outcome: Progressing [facility] 08-04-2024 Plan of care note Problem: Knowledge [...] 2237 by Afua Morales RN Outcome: Progressing [facility] 08-03-2024 Plan of care note Problem: Knowledge Deficit Goal: Patient/family/caregiver demonstrates understanding of disease process, treatment plan, medications, and discharge instructions Outcome: Progressing Problem: Potential for Falls Goal: I will remain free of falls Outcome: Progressing Problem: Discharge Barriers Goal: My discharge needs are met Outcome: Progressing Problem: Excessive Fluid Volume Goal: Fluid and electrolyte balance are achieved/maintained Outcome: Progressing [facility] 08-03-2024 History and physical note Attending History [...] capsule 3 ergocalciferol (Vitamin D-2) 1.25 MG (82338 UT) capsule Take 1.25 mg by mouth [...] Pita Jara Mobile Relation: Parent Preferred language: Faroese Fiberglass Quality Technician needed? No Secondary Emergency Contact: Mamadou Jara Relation: Father ------- TOTAL time spent on H&P: [73] minutes were spent discussing patient care for this admission (including face to face, chart review, including discussion with ED providers and/or review of their notes, labs and images). Mariann Byrnes MD Division of Hospitalist Medicine [facility] 08-03-2024 Note [facility] 08-03-2024 History and physical note Attending History [...] capsule 3 ergocalciferol (Vitamin D-2) 1.25 MG (66693 UT) capsule Take 1.25 mg by mouth [...] Contact: EstefaniPita Mobile Relation: Parent Preferred language: Faroese Fiberglass Quality Technician needed? No Secondary Emergency Contact: EstefaniMamadou Relation: Father ------- TOTAL time spent on H&P: [73] minutes were spent discussing patient care for this admission (including face to face, chart review, including discussion with ED providers and/or review of their notes, labs and images). Mariann Byrnes MD Division of Hospitalist Medicine [facility] documented in this encounter [facility] 08-03-2024 Emergency department Note Paramedics here to get the pt to be transferred to [facility]. [facility] 08-03-2024 Emergency department Note Paramedics here to get the pt to be transferred to [facility]. Pt incontinent of urine with depends changed. [...] of urine Dyspnea Anxiety Schizoaffective disorder (CMS/HCC) ([facility]) Chest pain Iron (Fe) deficiency anemia GERD (gastroesophageal reflux disease) Depression Suicidal ideations Acute gastric ulcer without hemorrhage or perforation Hypothyroidism Urinary incontinence Diverticulosis of large intestine without diverticulitis Chronic antral gastritis First degree hemorrhoids Nocturia Rotator cuff strain Osteoarthritis of patellofemoral joint Urge incontinence Urinary retention Localized edema Morbid obesity with BMI of 45.0-49.9, adult ([facility]) Hypomagnesemia JOSE A (acute kidney injury) ([facility]) Chronic bilateral low back pain with bilateral sciatica Primary hypothyroidism Psychogenic polydipsia Pneumonia Hyponatremia Hypertension Bipolar disorder ([facility]) Lung infiltrate on CT Chronic schizoaffective disorder ([facility]) Urinary tract infection Urinary tract infection without hematuria, site unspecified Chronic renal disease, stage IV ([facility]) Chronic kidney disease, stage 3b ([facility]) Acute cystitis without hematuria Fluid overload CURRENT [...] or chew. ERGOCALCIFEROL (VITAMIN D-2) 1.25 MG (57833 UT) CAPSULE Take 1.25 mg by mouth [...] normal. Thought Content: Thought content normal. SCREENINGS Tamara Coma Scale Best Eye Response: Spontaneous Best [...] 101 (*) Narrative: Performed by: [facility], [address] [place] [address] CLIA ID: [id number] POCT GLUCOSE METER Medications ordered: Medications ketamine [...] medical records were reviewed: normal. Ordered by manifest clerk [NM] 1017 Renal function panel (07/03/24 0147)(!) Prior medical records were reviewed: cr 2.8. Ordered by manifest clerk [NM] 1020 Ammonia (06/28/24 1359) Prior medical records were reviewed: normal [NM] 1508 HEMOGLOBIN(!): 9.2 Prior medical records were reviewed: similar to 1 month ago [NM] ED Course User Index [NM] Jess Patton MD Diagnoses as of 12/20/24 1813 Peripheral edema Failure to thrive in adult [...] patient was accepted to for hospitalization to [facility] PATIENT REFERRED TO: No follow-up provider [...] dimmed for comfort documented in this encounter [facility] 08-03-2024 Emergency department Note Pt incontinent of urine with depends changed. Warm blankets provided and pt updated of admission status and estimated transfer times. [facility] 08-03-2024 Emergency department Note Pt sleeping with eyes closed and respirations even and unlabored. Lights are dimmed for comfort. [facility] 08-03-2024 Emergency department Note Pt declines offers of bedside commode at current time. Pt updated and aware of admission status [facility] 08-03-2024 Emergency department Note Ice chips provided. Pt remains somnolent but wakes up easily to stimuli Pt repositioned with additional warm blankets provided. Lights dimmed for comfort [facility] 08-03-2024 Emergency department Triage note Pt [...] per request and bed adjusted for comfort. [facility] 08-03-2024 Physician Emergency department Note EMERGENCY [...] Morbid obesity with BMI of 45.0-49.9, adult ([facility]) Hypomagnesemia JOSE A (acute kidney injury) ([facility]) Chronic bilateral low back pain with bilateral sciatica Primary hypothyroidism Psychogenic polydipsia Pneumonia Hyponatremia Hypertension Bipolar disorder ([facility]) Lung infiltrate on CT Chronic schizoaffective disorder ([facility]) Urinary tract infection Urinary tract infection without hematuria, site unspecified Chronic renal disease, stage IV (HCC) Chronic kidney disease, stage 3b ([facility]) Acute cystitis without hematuria Fluid overload CURRENT [...] or chew. ERGOCALCIFEROL (VITAMIN D-2) 1.25 MG (97968 UT) CAPSULE Take 1.25 mg by mouth [...] normal. Thought Content: Thought content normal. SCREENINGS Tamara Coma Scale Best Eye Response: Spontaneous Best Verbal Response: Oriented Best Motor Response: Follows commands [place] Coma Scale Score: 15 Medical decision making [...] 101 (*) Narrative: Performed by: [facility], [address] [place] [address] CLIA ID: [id number] POCT GLUCOSE METER Medications ordered: Medications ketamine injection 10 mg (has no administration in time range) albumin human 25 % IV solution 50 g (0 g IntraVENous Stopped 08/03/24 1330) furosemide (Lasix) injection 15 mg (15 mg IntraVENous Given 08/03/24 1413) ED Course as of 08/03/24 181TueAug 03, 2024 1016 Valproic acid level, total (08/01/24 1547) Prior medical records were reviewed: normal [NM] 1017 Osmolality (07/04/24 0454) Prior medical records were reviewed: normal. Ordered by manifest clerk [NM] 1017 Renal function panel (07/03/24 0147)(!) Prior medical records were reviewed: cr 2.8. Ordered by manifest clerk [NM] 1020 Ammonia (06/28/24 1359) Prior medical [...] patient was accepted to for hospitalization to [facility] PATIENT REFERRED TO: No follow-up provider specified. I prescribed: New Prescriptions No medications on file (Comment: this report has been produced using speech recognition software and may contain errors related to that system including errors in grammar, punctuation, and spelling, as well as words and phrases that may be inappropriate) Jess Patton MD (electronically signed) Jess Patton MD 08/03/241812 [facility] 08-01-2024 Emergency department Note Updated ETA 30 mins [facility] 08-01-2024 Emergency department Note Updated ETA 30 [...] or chew. ERGOCALCIFEROL (VITAMIN D-2) 1.25 MG (08399 UT) CAPSULE Take 1.25 mg by mouth [...] Physician EKG interpretation can be found in [facility] RADIOLOGY (Per Emergency Physician): Interpretation per the [...] feet. I also reviewed external records from [facility]. I discussed their care with none. 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 This RN attempted twice [facility] 08-01-2024 Emergency department Note Pt presents with EMS. Pt with fall yesterday and ankle pain. Pt is yellow in appearance. Pt with bruising in bilateral legs and +2 edema. Pt walks with walker.Pt is from assisted living [facility]. EMS unable to provider more information [facility] 08-01-2024 Physician Emergency department Note EMERGENCY DEPARTMENT [...] or chew. ERGOCALCIFEROL (VITAMIN D-2) 1.25 MG (62283 UT) CAPSULE Take 1.25 mg by mouth [...] feet. I also reviewed external records from [facility]. I discussed their care with none. Consideration [...] PM PATIENT REFERRED TO: Edith Pierce MD [address] [place] [address] [address] [facility] [address] If symptoms worsen DISCHARGE MEDICATIONS: New Prescriptions [...] Medicine Provider VENTURA Fortune CNP 08/01/24 1651 [facility] 07-04-2024 Nurse Note Discharge instructions given to patient with understanding. I will also give them to her family, patients mother that will be picking her up at [address] Gutierrez did sign the AVS as requested by the facility. [facility] 07-04-2024 Nurse Note Discharge instructions given to patient with understanding. I will also give them to her family, patients mother that will be picking her up at [address] Gutierrez did sign the AVS as requested by the facility. I called [facility] and gave report on the patient. Patient will be discharged at 3 pm. Patients family will be transporting her. documented in this encounter [facility] 07-04-2024 Nurse Note I called [facility] and gave report on the patient. Patient will be discharged at 3 pm. Patients family will be transporting her. [facility] 07-04-2024 History of Present illness Narrative Images from the original note were not included. PHYSICAL THERAPY [facility] Name/MRN: Jessy Mckeon ([id number]) Date: 07/04/2024 Re-attempted this PM. PT reports she just got to bathroom and now her hands hurt. I offered encouragement and multiple options. Pt reports she wll do PT when she gets home, declines therapy. Puneet Norton PT Hospitalist Progress Note 07/04/2024 [phone]: Please page me ([phone]) for patient care issues. [phone]: Please page [facility] Hospitalist for any issues. Subjective: Admit Date: [...] Urinary incontinence nightly LABS: CBC: Recent Labs 07/02/2414607/03/24 0123 07/04/24 0346 WBC 5.9 6.0 6.0 [...] Location - Skilled Facility vs back to [facility] - Pending the following - auth at SNF Toxic drug monitoring/narrow therapeutic index drug monitoring : # Drug name : # Route administered : # Method of monitoring : Extended Emergency Contact Information Primary Emergency Contact: EstefaniPita Mobile Relation: Parent Preferred language: Faroese Fiberglass Quality Technician needed? No Secondary Emergency Contact: EstefaniMamadou Relation: Father Sarah Gutierrez DO Division of Hospitalist Medicine Inpatient Medical Services/[facility] PAGER: Epic chat Images from the original note were not included. 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 Memory recall intact LABS: Recent Labs 07/02/2414607/03/2412207/04/24345 WBC 5.9 6.0 6.0 HGB 8.7* 8.7* 8.3* HCT 27.2* 27.4* 26.4* MCV 96.1 96.5 96.0 PLT 190 185 216 Lab Results Component Value Date IRON 53 04/17/2024 TIBC 244 (L) 04/17/2024 FERRITIN 75 04/17/2024 Lab Results Component Value Date [id number] 913 04/05/2022 FOLATE >20.0 04/05/2022 Recent Labs 07/02/2414607/03/2412207/04/24345 NA 131* 132* 129* K 4.4 4.6 [...] records]. Please call with any questions. Pager: [phone] Office: [phone]. Images from the original note were not included. OCCUPATIONAL THERAPY [facility] Name/MRN: Jessy Mckeon ([id number]) Date: 07/04/2024 Chart reviewed completed, attempted treatment [...] original note were not included. PHYSICAL THERAPY [facility] Name/MRN: Jessy Mckeon ([id number]) Date: 07/04/2024 Chart reviewed. Introduced self and role. Pt declines therapy, requests to come back 2/2 wanting her medications. I told her we could wait until her meds were passed and then she told me to come back after she had a nap. Will continue to follow and attempt as pt agreeable. Puneet Norton PT Images from the original note were not included. Nephrology Progress Note Patient: Jessy Mckeon Room number: B1-156/B1-156 A Date of Admit: 06/28/2024 LOS: 5 days Admitting physician: Estephania Teran MD Referring physician: Sarah Gutierrez DO Assessment/Plan: [...] 75 04/17/2024 Lab Results Component Value Date [id number] 913 04/05/2022 FOLATE >20.0 04/05/2022 Recent Labs [...] records]. Please call with any questions. Pager: [phone] Office: [phone]. Images from the original note were not included. PHYSICAL THERAPY [facility] Name/MRN: Jessy Mckeon ([id number]) Date: 07/03/2024 Chart review completed. PT treatment attempted for second trial this date. Patient sleeping very soundly at this time and awakens minimally to verbal and tactile stimuli at this time, quickly returning to sleep and snoring. RN amy reports this has been normal this afternoon. Will continue to follow and re-attempt as appropriate. Loraine Garcia PT Hospitalist Progress Note 07/03/2024 [phone]: Please page me ([phone]) for patient care issues. [phone]: Please page [facility] night Hospitalist for any issues. Subjective: Admit Date: 06/28/2024 PCP: Edith Pierce MD Room#: [facility]156/[facility] A Interval History: patient admitted for AMS [...] mention of complication, not stated as uncontrolled ([facility]) Urinary incontinence nightly LABS: CBC: Recent Labs 07/01/24 0549 07/02/24 0147 07/03/24 0123 WBC 6.6 5.9 6.0 RBC 2.69* 2.83* 2.84* HGB 8.4* 8.7* 8.7* HCT 26.3* 27.2* 27.4* MCV 97.8 96.1 96.5 RDW 13.2 13.1 13.4 PLT 178 190 185 BMP: Recent Labs 07/01/24 1706 07/02/24 0147 07/03/24 [...] - Pending the following - auth at [facility] Toxic drug monitoring/narrow therapeutic index drug monitoring : # Drug name : # Route administered : # Method of monitoring : Extended Emergency Contact Information Primary Emergency Contact: Pita Jara Mobile Relation: Parent Preferred language: Faroese Fiberglass Quality Technician needed? No Secondary Emergency Contact: Mamadou Jara Relation: Father Sarah Gutierrez DO Division of Hospitalist Medicine Inpatient Medical Services/[facility] PAGER: [employer] chat Images from the original note were not included. PHYSICAL THERAPY [facility] Name/MRN: Jessy Mckeon ([id number]) Date: 07/03/2024 Chart review completed. Patient currently [...] 06/28/2024 LOS: 4 days Admitting physician: Estephania Teran MD Referring physician: Tao Conte MD Assessment/Plan: 1-Non oliguric JOSE A/CKD stage IV: Scr heading back to [facility]. -UOP> 6 liters, extraneous fluids stopped. Will [...] 75 04/17/2024 Lab Results Component Value Date [id number] 913 04/05/2022 FOLATE >20.0 04/05/2022 Recent Labs 07/01/24 0549 07/01/24 1706 07/02/24146 NA 132* 129* 131* K 4.7 4.5 [...] records]. Please call with any questions. Pager: [phone] Office: [phone]. Hospitalist Progress Note 07/02/2024 [phone]: Please page me ([phone]) for patient care issues. [phone]: Please page [facility] night Hospitalist for any issues. Subjective: Admit Date: 06/28/2024 PCP: Edith Pierce MD Room#: B1-156/B1-156 A Interval History: No overnight issues. Denies chest pain, sob, abdominal pain, nausea, vomiting, diarrhea, constipation, fevers, or chills. Adult diet Regular @JWYW0HLXDVC@ 24HR INTAKE/OUTPUT: Intake/Output Summary (Last 24 hours) [...] mention of complication, not stated as uncontrolled ([facility]) Urinary incontinence nightly LABS: CBC: Recent Labs 06/30/24 0528 07/01/24 0549 07/02/24 014 WBC 6.6 6.6 5.9 RBC 2.44* 2.69* 2.83* HGB 7.4* 8.4* 8.7* HCT 24.2* 26.3* 27.2* MCV 99.2* 97.8 96.1 RDW 12.9 13.2 13.1 PLT 147 178 190 BMP: Recent Labs 07/01/24 0549 07/01/24 1706 07/02/24146 NA 132* 129* 131* K 4.7 4.5 [...] complaining of significant weakness. PT OT recommending halfway facility. 06/29-called patient's mother updated about patient's [...] MD Division of Hospitalist Medicine Inpatient Medical Services/[facility] PAGER: [phone] Images from the original note were not included. OCCUPATIONAL THERAPY [facility] Treatment Note Name/MRN: Jessy Mckeon ([id number]) Date of : 1965 Age: 59 y.o. Room/Bed: B1-156/B1156 A Visit #: 2 out of 7 visits Discharge Recommendation: Longterm Facility Prior Level of Function Prior Level [...] original note were not included. PHYSICAL THERAPY [facility] Treatment Note Name/MRN: Jessy Mckeon ([id number]) Date of : 1965 Age: 59 y.o. Room/Bed: [facility] A Visit #: 1 out of 5 visits Discharge Recommendation: Longterm Facility (Discussed change in recommendation with PT [...] hour assist for safety as well as [facility] Subjective Pt agreeable to therapy. [...] Minutes (ther act and gait) Zora Dupree PTA Cosigned by Deanne Dueñas, PT at 07/02/2024 9:17 AM EST Hospitalist Progress Note 07/01/2024 [phone]: Please page me ([phone]) for patient care issues. [phone]: Please page [facility] night Hospitalist for any issues. Subjective: Admit Date: 06/28/2024 PCP: Edith Pierce MD Room#: B1-156/B1-156 A Interval History: No overnight issues. Denies chest pain, sob, abdominal pain, nausea, vomiting, diarrhea, constipation, fevers, or chills. Adult diet Regular @[id number]@ 24HR INTAKE/OUTPUT: Intake/Output Summary (Last 24 hours) [...] 164 147 178 BMP: Recent Labs 06/29/24 0101 06/30/24 0528 07/01/24 0549 NA 130* 127* 132* [...] OT evaluation and recommendations. Possible requirement of halfway facility before going to assisted living 06/29-called [...] MD Division of Hospitalist Medicine Inpatient Medical Services/[facility] PAGER: [phone] Images from the original note were not included. PHYSICAL THERAPY [facility] Name/MRN: Jessy Mckeon ([id number]) Date: 06/30/2024 Chart review completed this date. PT attempted. Pt sleeping. Unable to wake with verbal and tactile cues. RN reports pt is very difficult to wake. PT will continue to follow. Will re-attempt another time/date as schedule permits. Aspen Mercer PTA Cosigned by Jewels Johnson PT at 06/30/2024 2:18 PM EST Hospitalist Progress Note 06/30/2024 [phone]: Please page me ([phone]) for patient care issues. [phone]: Please page [facility] night Hospitalist for any issues. Subjective: Admit Date: 06/28/2024 PCP: Edith Pierce MD Room#: B1-156/B1-156 A Interval History: No overnight issues. Denies chest pain, sob, abdominal pain, nausea, vomiting, diarrhea, constipation, fevers, or chills. Adult diet Regular @[id number]@ 24HR INTAKE/OUTPUT: Intake/Output Summary (Last 24 hours) [...] MD Division of Hospitalist Medicine Inpatient Medical Services/[facility] PAGER: [phone] Images from the original note were not included. OCCUPATIONAL THERAPY [facility] Treatment Note Name/MRN: Jessy Mckeon ([id number]) Date of : 1965 Age: 59 y.o. [...] independence in occupational participation. OT rec is [facility] OT with assist PRN pending [...] original note were not included. OCCUPATIONAL THERAPY [facility] Initial Evaluation Name/MRN: Jessy Mckeon ([id number]) Evaluation Date: 06/29/2024 Date of : 1965 [...] CGA-SBA for functional transfers and mobility at [facility]. 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 CHOLECYSTECTOMY COLON SURGERY c-diff COLONOSCOPY 03/28/2018 no polyps UPPER GASTROINTESTINAL ENDOSCOPY 03/28/2018 Admission Diagnosis: Patient Active Problem List Diagnosis Date Noted Acute cystitis without hematuria 06/28/2024 Chronic renal disease, stage IV ([facility]) 06/20/2023 Chronic kidney disease, stage 3b ([facility]) 06/20/2023 Urinary tract infection without hematuria, site unspecified 03/17/2023 Urinary tract infection 03/16/2023 Depression 12/23/2021 Localized edema 01/11/2019 Schizoaffective disorder ([facility]/HCC) ([facility]) 06/05/2018 Suicidal ideations 05/22/2018 Chronic schizoaffective disorder ([facility]) 05/22/2018 Acute gastric ulcer without hemorrhage or perforation 03/28/2018 Diverticulosis of large intestine without diverticulitis 03/28/2018 Chronic antral gastritis 03/28/2018 First degree hemorrhoids 03/28/2018 Dyspnea 03/03/2018 Urinary retention 03/02/2018 Chest pain 02/14/2018 Hyponatremia 02/12/2018 Hypothyroidism 10/12/2017 Morbid obesity with BMI of 45.0-49.9, adult ([facility]) 10/12/2017 Hypomagnesemia 10/12/2017 JOSE A (acute kidney injury) ([facility]) 10/12/2017 Chronic bilateral low back pain with bilateral sciatica 10/12/2017 Psychogenic polydipsia 10/12/2017 Hypertension 10/12/2017 Bipolar disorder ([facility]) 10/12/2017 Iron (Fe) deficiency anemia 10/09/2017 Primary [...] Oriented x4 Social/Functional History Patient admitted from [facility]. Assistive Equipment: rollator Prior Level of Function [...] of Care supervision is transferred to a [facility] Occupational Therapist. Goals and/or treatment plan was established in collaboration with patient/family/other representatives. Hospitalist Progress Note 06/29/[phone]: Please page me ([phone]) for patient care issues. [phone]: Please page [facility] night Hospitalist for any issues. Subjective: Admit Date: 06/28/2024 PCP: Edith Pierce MD Room#: [facility] A Interval History: No overnight issues. Denies chest pain, sob, abdominal pain, nausea, vomiting, diarrhea, constipation, fevers, or chills. Adult diet Regular @[id number]@ 24HR INTAKE/OUTPUT: Intake/Output Summary (Last 24 hours) [...] MD Division of Hospitalist Medicine Inpatient Medical Services/[facility] PAGER: [phone] Images from the original note were not included. PHYSICAL THERAPY [facility] Initial Evaluation Name/MRN: Jessy Mckeon ([id number]) Evaluation Date: 06/29/2024 Date of : 1965 Admission Date: 06/28/2024 11:15 AM Age: 59 y.o. Room/Bed: B1-156/B1-156 A Discharge Recommendation: Longterm Facility, Continue to assess pending progress Equipment [...] reflux Anxiety Arthritis Asperger syndrome Bipolar disorder ([facility]) Chronic kidney disease stage 4 kidney failure Chronic pain Depression Edema of both legs GERD (gastroesophageal reflux disease) Hemorrhoids Hyperlipidemia Hypertension Hypothyroidism Iron (Fe) deficiency anemia Nephrogenic diabetes insipidus ([facility]) Pain management Retention of urine, unspecified Sciatica SOB (shortness of breath) GRANT Type II or unspecified type diabetes mellitus without mention of complication, not stated as uncontrolled ([facility]) Urinary incontinence nightly Past Surgical History: Past Surgical History: Procedure Laterality Date 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 CHOLECYSTECTOMY COLON SURGERY c-diff COLONOSCOPY 03/28/2018 no polyps UPPER GASTROINTESTINAL ENDOSCOPY 03/28/2018 Admission Diagnosis: Patient Active Problem List Diagnosis Date Noted Acute cystitis without hematuria 06/28/2024 Chronic renal disease, stage IV (HCC) 06/20/2023 Chronic kidney disease, stage 3b ([facility]) 06/20/2023 Urinary tract infection without hematuria, site unspecified 03/17/2023 Urinary tract infection 03/16/2023 Depression 12/23/2021 Localized edema 01/11/2019 Schizoaffective disorder (CMS/HCC) ([facility]) 06/05/2018 Suicidal ideations 05/22/2018 Chronic schizoaffective disorder (HCC) 05/22/2018 Acute gastric ulcer without hemorrhage or perforation 03/28/2018 Diverticulosis of large intestine without diverticulitis 03/28/2018 Chronic antral gastritis 03/28/2018 First degree hemorrhoids 03/28/2018 Dyspnea 03/03/2018 Urinary retention 03/02/2018 Chest pain 02/14/2018 Hyponatremia 02/12/2018 Hypothyroidism 10/12/2017 Morbid obesity with BMI of 45.0-49.9, adult ([facility]) 10/12/2017 Hypomagnesemia 10/12/2017 JOSE A (acute kidney injury) ([facility]) 10/12/2017 Chronic bilateral low back pain with bilateral sciatica 10/12/2017 Psychogenic polydipsia 10/12/2017 Hypertension 10/12/2017 Bipolar disorder ([facility]) 10/12/2017 Iron (Fe) deficiency anemia 10/09/2017 Primary [...] Hearing: normal Social/Functional History Patient admitted from [facility]. Assistive Equipment: rollator Prior Level of Function Prior Level of ADL Function: Independent Prior Level of Mobility: Independent; Device: Rollator Prior Level of Transfers: Independent Objective Lower Extremity Assessment AROM: WFL Strength: Exceptions: decreased in BLE noted with functional mobility. Bed Mobility: Supine to sit: Min Assist Sit to supine: SBA Pt completes supine->sit requiring min A with [employer] OPERATIONS ENGINEER to elevate trunk into upright sitting. Cues [...] of Care supervision is transferred to a [facility] Physical Therapist. Goals and/or treatment plan was established in collaboration with patient/family/other representatives. documented in this encounter [facility] 07-04-2024 Hospital Discharge instructions Justine Valentine LPN - 07/04/2024 12:41 PM EST Images from the original note were not included. Continuity of Care Form Patient Name: Jessy Mckeon : 1965 Admit date: 06/28/2024 Discharge date: 07-04-2024 Code Status Order: Full Code Advance Directives: N Admitting Physician: Estephania Teran MD PCP: Edith Pierce MD Discharging Nurse: Justine Valentine L.P.N Discharging Hospital Unit/Room#: B1-156/B1-156 A Discharging Unit Emergency Contact: Extended Emergency Contact Information Primary Emergency Contact: Pita Jara Mobile Relation: Parent Preferred language: Faroese Fiberglass Quality Technician needed? No Secondary Emergency Contact: Mamadou Jara [...] Minimal assistance Toileting Minimal assistance Feeding Independent Gravel Wheeler Minimal assistance Med Delivery no Wound Care [...] Status Date: [facility]charg[facility] to [facility] Address: [address] [place] [address] [place] [address] Dialysis Facility (if applicable) Name: Address: Dialysis Schedule: Phone: Fax: Quality Assurance Supervisor Body/Ocean Export Account Manager signature: {E-signature:17768} PHYSICIAN SECTION Name: Jessy Mckeon Prognosis: {Rehab Prognosis:43866} Condition at Discharge: {Patient Condition:89496} Rehab Potential (if transferring to Rehab): {Rehab Prognosis:25018} Recommended Labs or Other Treatments After Discharge: The individual is being admitted to a nursing facility directly from an [facility] or a unit of a [facility] that is not operated by or licensed by [facility] under section 5119.14 or 5160-3-15.1 5 The [...] days. Update Admission H&P: {IRASEMA Changes in H&P:91357} PHYSICIAN SIGNATURE: {E-signature:69221} documented in this encounter [facility] 07-04-2024 Note [facility] 07-04[facility]24 Hospital course Narrative Hospitalist Discharge Summary Jessy Mckeon : 1965 Admit date: 06/28/2024 Discharge date: 07/04/2024 Admitting Physician: Estephania Teran MD Primary Care Physician: Edith Pierce MD [...] in 1 week. She is discharged to [facility] in improved and stable condition on 07/04/24. Consults: IP CONSULT TO NEPHROLOGY Discharge Instructions: Diet: Adult diet Regular Activity: as tolerated Recommended Outpatient Tests: Disposition: Patient discharged in stable condition to home. LABS: CBC: Recent Labs 07/02/2414607/03/24 0123 07/04/24 0346 WBC 5.9 6.0 6.0 RBC 2.83* 2.84* 2.75* HGB 8.7* 8.7* 8.3* HCT 27.2* 27.4* 26.4* MCV 96.1 96.5 96.0 RDW 13.1 13.4 13.5 PLT 190 185 216 BMP: Recent Labs 07/02/2414607/03/24 0123 07/04/24 0346 NA 131* 132* 129* [...] not crush or chew. ergocalciferol 1.25 MG (62350 UT) capsule Commonly known as: Vitamin D-2 [...] Your Medications These medications were sent to [facility]/pharmacy [address] [place] [address] sennosides 8.6 MG tablet Recommended Follow-up: PCP and primary manifest clerk outpatient in 1-2 weeks. @READMISSIONRISK@ Complexity of Follow up: [] Moderate Complexity: follow up within 7-14 calendar days (67760) [x] Severe Complexity: follow up within 7 calendar days (26032) Follow up Testing, Pending results or Referrals [...] frame. Signed: Sarah Gutierrez DO Division of Hospitalist Medicine Inpatient Medical Services/[facility] 07/04/2024, 12:35 PM Total time Spent on Discharge: 32 minutes documented in this encounter [facility] 07-04-2024 Note Formatting of this n ote [...] dated by attending. Tcc also messaged social sciences professor for transportation and updated Address of [place] on IRASEMA. Tcc then faxed H&P, MAR and consults to [phone]. Length of Stay (Days): 6 GMLOS: 3.8 [facility] 07-04-2024 Note Formatting of this n ote [...] dated by attending. Tcc also messaged social sciences professor for transportation and updated Address of [place] on IRASEMA. Tcc then faxed H&P, MAR and consults to [phone]. Length of Stay (Days): 6 GMLOS: 3.8 [facility] 07-04-2024 Miscellaneous Notes Care Management Progress Note [...] dated by attending. Tcc also messaged social sciences professor for transportation and updated Address of [place] on IRASEMA. Tcc then faxed H&P, MAR and consults to [phone]. Length of Stay (Days): 6 GMLOS: 3.8 [...] reviewed pt's ability to return with nursing Traffic Director at [facility] / [place] 07/02/24 and will again this afternoon to [...] Cath Tcc received call from [facility] [place] asking for an update and tentative return. [facility] informed [facility] that it did not appear to be today 2/2 renal function, However therapy progress notes from this AM were reviewed and per [place], as long as pt can stand with device, and does not require any lifting she can return. [facility] shared this w RN in AM rounds. Will update parents and continue to follow. DCP: Return to [place] when stable Length of Stay (Days): 4 GMLOS: No GMLOS Documented Care Managment Initial Assessment Date: 07/01/2024 Patient Name: Jessy Mckeon : 1965 Patient Information Source of Information: Patient Cognition/Language: WFL - Within Functional Limits Permission given to speak with patient passenger representative/caregiver as indicated: Confirmation of Payer with patient/family: Yes Payer Name: Medicare / [place] Medicaid : No Confirmation of Primary Care Physician: Confirmed PCP Name: Dr. Pierce Seen in last 2 years?: Yes Primary Caregiver: Other (Comment) ([place] Staff) If assistance needed, confirmed caregiver ready, willing and able to care for patient at discharge: Yes Confirmed with: [place] Staff Living Arrangements Current Residence: Number of Floors Number of Entry Steps: Bed/Bath Levels: Facility: Assisted Living Facility Name: [facility] Plan to Return: Yes Lives with: [...] expects to be discharged to: return to [facility] Discharge Planning Actions: Continue to follow Patient's [...] PT rec SNF Current DCP: return to [facility] Discussed therapy recommendation of SNF. Patient refused, stating she has plenty of assistance at [facility]. Will need to confirm [facility] ability to accept back depending on most [...] Cb Sharma RN documented in this encounter [facility] 07-04-2024 Plan of care note Problem: Knowledge Deficit Goal: Patient/family/caregiver demonstrates understanding of disease process, treatment plan, medications, and discharge instructions Outcome: Progressing Problem: Potential for Compromised Skin Integrity Goal: Skin Integrity is Maintained or Improved Outcome: Progressing Problem: Urinary Incontinence Goal: Perineal skin integrity is maintained or improved Outcome: Progressing [facility] 07-03-2024 Note Formatting of this n ote [...] reviewed pt's ability to return with nursing Traffic Director at [facility] 07/02/24 and will again this afternoon to determine anticipated dc date. DCP: return to [place] when stable. Length of Stay (Days): 5 GMLOS: 3.8 [employer] [facility] 07-03-2024 Note Formatting of this n ote [...] reviewed pt's ability to return with nursing Traffic Director at [facility] 07/02/24 and will again this afternoon to determine anticipated dc date. DCP: return to [place] when stable. Length of Stay (Days): 5 GMLOS: 3.8 [employer] [facility] 07-03-2024 Plan of care note Problem: Knowledge Deficit Goal: Patient/family/caregiver demonstrates understanding of disease process, treatment plan, medications, and discharge instructions Outcome: Progressing Problem: Pain - Adult Goal: Verbalizes/displays adequate comfort level or baseline comfort level Outcome: Progressing Problem: Safety - Adult Goal: Free from fall injury Outcome: Progressing [facility] 07-02-2024 Note Formatting of this n ote might be different from the original. Care Management Progress Note Pt admitted with metabolic encephalopathy in setting of cystitis/UTI Iv antibiotics de escalated to PO [facility] following for worsening renal function PT on fluid restriction [facility] Cath Tcc received call from Pt's [place] [facility] [place] asking for an update and tentative return. Tcc informed [place] that it did not appear to be [...] Stay (Days): 4 GMLOS: No GMLOS Documented [facility] 07-02-2024 Note Formatting of this n ote might be different from the original. Care Management Progress Note Pt admitted with metabolic encephalopathy in setting of cystitis/UTI Iv antibiotics de escalated to [facility] following for worsening renal function PT on fluid restriction [facility] Cath Tcc received call from Pt's [place] [facility] [place] asking for an update and tentative return. Tcc informed [place] that it did not appear to be [...] Stay (Days): 4 GMLOS: No GMLOS Documented [facility] 07-01-2024 Note Formatting of this n ote might be different from the original. Care Managment Initial Assessment Date: 07/01/2024 Patient Name: Jessy Mckeon : 1965 Patient Information Source of Information: Patient Cognition/Language: WFL - Within Functional Limits Permission given to speak with patient passenger representative/caregiver as indicated: Confirmation of Payer with patient/family: Yes Payer Name: Medicare / [place] Medicaid : No Confirmation of Primary Care Physician: Confirmed PCP Name: Dr. Pierce Seen in last 2 years?: Yes Primary Caregiver: Other (Comment) ([place] Staff) If assistance needed, confirmed caregiver ready, willing and able to care for patient at discharge: Yes Confirmed with: [place] Staff Living Arrangements Current Residence: Number of Floors Number of Entry Steps: Bed/Bath Levels: Facility: Assisted Living Facility Name: [facility] Plan to Return: Yes Lives with: Alone [...] expects to be discharged to: return to [facility] Discharge Planning Actions: Continue to follow Patient's [...] PT rec SNF Current DCP: [facility] Discussed therapy recommendation of SNF. Patient refused, stating she has plenty of assistance at [facility]. Will need to confirm [facility] ability to accept back depending on most recent therapy evals prior to DC. As of 06/29 PT note, patient min-SBA for bed mobility, CGA for functional transfers and short distance ambulation with FWW. Placed "Therapy See Today" request for today or tomorrow AM to establish current assist level to confirm [facility]'s ability to accept. Expected Discharge, Rapid Rounding, and Discharge Milestones / Delays updated as appropriate. Discharge planning needs discussed. Patient denied any needs. Patient verbalizes understanding and is in agreement with POC. The time of this note does not reflect the actual time patient was seen and assessed but instead the time of this documentation. TCC will continue to follow. Cb Sharma RN [facility] 07-01-2024 Note Formatting of this n ote might be different from the original. Care Managment Initial Assessment Date: 07/01/2024 Patient Name: Jessy Mckeon : 1965 Patient Information Source of Information: Patient Cognition/Language: WFL - Within Functional Limits Permission given to speak with patient passenger representative/caregiver as indicated: Confirmation of Payer with patient/family: Yes Payer Name: Medicare / [place] Medicaid [place]: No Confirmation of Primary Care Physician: Confirmed PCP Name: Dr. Pierce Seen in last 2 years?: Yes Primary Caregiver: Other (Comment) ([place] Staff) If assistance needed, confirmed caregiver ready, willing and able to care for patient at discharge: Yes Confirmed with: [place] Staff Living Arrangements Current Residence: Number of Floors Number of Entry Steps: Bed/Bath Levels: Facility: Assisted Living Facility Name: [facility] Plan to Return: Yes Lives with: [...] expects to be discharged to: return to [facility] Discharge Planning Actions: Continue to follow Patient's [...] PT rec SNF Current DCP: return to [place] [facility] Discussed therapy recommendation of SNF. Patient refused, stating she has plenty of assistance at [facility]. Will need to confirm [facility] ability to [...] will continue to follow. Cb Sharma RN [facility] 07-01-2024 Consult note Associated Order (s): IP CONSULT TO NEPHROLOGY Images from the original note were not included. Nephrology Consult Note Patient: Jessy Mckeon Room number: B1-156/B1-156 A Date of Admit: 06/28/2024 LOS: 3 days Referring physician: Tao Conte MD Outpatient Breakfast Supervisor: Tomas Wagner M.D. Reason for Consult Hyponatremia Chief complaint: urinary frequency, weakness and confusion Assessment / Plan Jessy Mckeon is a 59 y.o. 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 Froy Bourne MD [facility] Office phone: [phone] Office fax: [phone] 07/01/2024 History of Present Illness Jessy Mckeon is a 59 y.o. 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 In the ED her temp was 98.7 HR 66 RR 18 BP 106/61 and O2sat 92% on RA. She was found to have a UTI and transferred to [facility]. She was started on ceftriaxone. A [...] Surgical History 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 [...] PLT 164 147 178 Recent Labs 06/29/24 0101 06/30/24 0528 07/01/24 0549 NA 130* 127* 132* [...] lungs are clear. No sizable pleural effusion. [employer] Phone: 07-01-2024 Consult note Associated Order (s): IP CONSULT TO NEPHROLOGY Images from the original note were not included. Nephrology Consult Note Patient: Jessy Mckeon Room number: [id number] A Date of Admit: 06/28/2024 LOS: 3 days Referring physician: Tao Conte MD Outpatient Breakfast Supervisor: Tomas Wagner M.D. Reason for Consult Hyponatremia Chief complaint: urinary frequency, weakness and confusion Assessment / Plan Jessy Mckeon is a 59 y.o. 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 Froy Bourne MD [facility] ([facility]) Office phone: [phone] Office fax: [phone] 07/01/2024 History of Present Illness Jessy Mckeon is a 59 y.o. 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 In the ED her temp was 98.7 HR 66 RR 18 BP 106/61 and O2sat 92% on RA. She was found to have a UTI and transferred to [facility]. She was started on ceftriaxone. A [...] Surgical History 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 [...] [facility] Labs reviewed. Recent Labs 06/29/24 0101 06/30/24 0528 07/01/24 0549 WBC 6.7 6.6 6.6 HGB 8.6* 7.4* 8.4* HCT 27.2* 24.2* 26.3* MCV 97.5 99.2* 97.8 PLT 164 147 178 Recent Labs 06/29/24 0101 06/30/24 0528 07/01/24 0549 NA 130* 127* 132* [...] sizable pleural effusion. documented in this encounter [facility] 06-28-2024 History and physical note Attending History [...] hypothyroidism, iron deficiency anemia, initially presented to [place] emergency room from assisted living due to increased urinary frequency generalized weakness and on and off confusion episodes. Workup in the [place] emergency room showed urinary tract infection, related decision was made to transfer to [facility] for further management. Patient denies any chest pain shortness of breath or palpitation, denies any abdominal pain nausea or vomitings No fever chills or rigors Patient received 1 dose of IV ceftriaxone in the [place] emergency room, admitted to [facility] for further management. Past Medical History: [...] capsule 3 ergocalciferol (Vitamin D-2) 1.25 MG (16188 UT) capsule Take 1.25 mg by mouth [...] signed by @MEMDNR@ on @TDNR@ at @NOWNR@ [facility] 06-28-2024 Note [facility] 06-28-2024 History and physical note Attending History [...] hypothyroidism, iron deficiency anemia, initially presented to [place] emergency room from assisted living due to increased urinary frequency generalized weakness and on and off confusion episodes. Workup in the [place] emergency room showed urinary tract infection, related decision was made to transfer to [facility] for further management. Patient denies any chest pain shortness of breath or palpitation, denies any abdominal pain nausea or vomitings No fever chills or rigors Patient received 1 dose of IV ceftriaxone in the [place] emergency room, admitted to [facility] for further management. Past Medical History: [...] capsule 3 ergocalciferol (Vitamin D-2) 1.25 MG (77072 UT) capsule Take 1.25 mg by mouth [...] @TDNR@ at @NOWNR@ documented in this encounter [facility] 06-28-2024 Emergency department Note Report to IDALIA Mcconnell @ [facility]. [facility] 06-28-2024 Emergency department Note Report to IDALIA Mcconnell @ [facility]. Attempted report to 1E [facility]. Nurse busy. Will call back for report [facility] emptied of 900cc clear yellow urine. Report to [facility] ambulance crew. Pt transferred with clothing, purse and cell phone. Pt given kathy kun and macaroni and cheese meal. Awaits admit bed Pt clinical nurse occupational medicine light frequently. Asking for water, for her [...] obtained using butterfly needle. Dr. Duran notified. [facility] ED EMERGENCY DEPARTMENT ENCOUNTER Pt Name: Jessy [...] or chew. ERGOCALCIFEROL (VITAMIN D-2) 1.25 MG (13209 UT) CAPSULE Take 1.25 mg by mouth [...] upper or lower extremity drift. Cerebellar (finger-nose, xuco-aw-axwi) normal. DIAGNOSTIC RESULTS Interpretation per the Radiologist [...] In compliance with this authorization, please visit www.fda.gov/media/391903/download or www.fda.gov/media/190675/download to access the applicable information sheets. AMMONIA [...] Culture. Procedure Abnormality Status --------- ------ Complete Urinalysis[[id number]] Abnormal Final result Please view results for [...] the patient. I discussed with Dr. Martha Teran who accepted the admission at [facility]. ED Course as of 06/28/24 1445 Kayli [...] Sarah Duran MD [facility] Emergency Medicine Physician [facility] Sarah Duran MD 06/28/24 1445 Pt to ER by collette from assisted living @ [facility]. Pt states she was recently started [...] light in reach. documented in this encounter [facility] 06-28-2024 Emergency department Note Attempted report to Sebastian Riley. Nurse busy. Will call back for report [facility] 06-28-2024 Emergency department Note [facility] emptied of 900cc clear yellow urine. Report to [facility] ambulance crew. Pt transferred with clothing, purse and cell phone. [facility] 06-28-2024 Emergency department Note Pt given kathy kun and macaroni and cheese meal. Awaits admit bed [facility] 06-28-2024 Emergency department Note Pt clinical nurse occupational medicine light frequently. Asking for water, for her cell phone, for extra blankets, to change the TV channel. Call light in reach, bedside table in reach, pt's cell phone on bedside table. [facility] 06-28-2024 Emergency department Note Pt unable to urinate despite being on bedpan several times. States she wants a pure wick- advised pt we do not place those. Pt asking for [facility] catheter. [facility] 06-28-2024 Emergency department Note Attempted IV x2 without success. Paramedics also tried IV without success. Labs obtained using butterfly needle. Dr. Duran notified. [facility] 06-28-2024 Emergency department Triage note Pt to ER by collette from assisted living @ [facility]. Pt states she was recently started [...] 2 for safety. Call light in reach. [facility] 06-28-2024 Physician Emergency department Note [facility] ED EMERGENCY DEPARTMENT ENCOUNTER Pt Name: Jessy [...] or chew. ERGOCALCIFEROL (VITAMIN D-2) 1.25 MG (69847 UT) CAPSULE Take 1.25 mg by mouth [...] upper or lower extremity drift. Cerebellar (finger-nose, ygld-hp-glhz) normal. DIAGNOSTIC RESULTS Interpretation per the Radiologist [...] In compliance with this authorization, please visit www.fda.gov/media/341486/download or www.fda.gov/media/232210/download to access the applicable information sheets. AMMONIA [...] Culture. Procedure Abnormality Status --------- ------ Complete Urinalysis[[id number]] Abnormal Final result Please view results for [...] the patient. I discussed with Dr. Martha Teran who accepted the admission at [facility]. ED Course as of 06/28/24 1445 Kayli [...] Sarah Duran MD [facility] Emergency Medicine Physician [facility] Sarah Duran MD 06/28/24 1445 [facility] 06-14-2024 History of Present illness Narrative Reason for consultation: Anemia associated with stage IV chronic kidney disease with baseline hemoglobin 9-10. Referred by provider at correction. HPI: 59-year-old female referred by her provider at correction with ongoing anemia in the setting of chronic kidney disease. She does follow with Dr. Wagner in nephrology for stage IV chronic kidney [...] in care coordination/counseling documented in this encounter [facility] 05-17-2024 Telephone encounter Note Phone call to patient. No answer, mailbox full. [facility] 05-17-2024 Miscellaneous Notes Phone call to patient. [...] Name of caller: Pita Contact phone number: [phone] Relationship to Patient: Mother Provider: Dr Green Practice: Uro Chief Complaint/Reason for Call: Pt states she is out in incontinence supplies and needs an order placed. Pt would like to know how long the order will take Best time of day caller can be reached: Any Patient advised that office/PCP has 24-48 business hours to return their call: Yes documented in this encounter [facility] 05-17-2024 Telephone encounter Note Phone call to [facility]. Asked if and when supplies have been sent out. Order for supplies faxed 04/30. Confirmation of receipt in media. They don't have it uploaded as of yet. Recommend re faxing. Estimate a week until supplies sent out. Order form re faxed. [facility] 05-15-2024 Telephone encounter Note Phone call to number given. Female that answered states patient is at home now. Does not live there anymore. Called home number. No answer, voice mailbox is full. [facility] 05-11-2024 Telephone encounter Note Name of caller: Pita Contact phone number: [phone] Relationship to Patient: Mother Provider: Dr Green Practice: Uro Chief Complaint/Reason for Call: Pt states she is out in incontinence supplies and needs an order placed. Pt would like to know how long the order will take Best time of day caller can be reached: Any Patient advised that office/PCP has 24-48 business hours to return their call: Yes [facility] 04-24-2024 Telephone encounter Note Jillian from [employer] is faxing a letter of Medical necessity to our office and would like the signed return fax sent to [phone]. [facility] 04-24-2024 Miscellaneous Notes Jillian from [employer] is faxing a letter of Medical necessity to our office and would like the signed return fax sent to [phone]. documented in this encounter [facility] 03-16-2024 Telephone encounter Note Rescheduled, thanks [facility] 03-16-2024 Miscellaneous Notes Rescheduled, thanks Name of Caller: Pita Jara Contact Reason for Appointment: Pita called in regards to scheduling an appointment for the patient. Pita is requesting a call back to schedule the appointment. Please advise. Office Name: Behavioral Health Medication Refills need, if any: No Medication Name: None documented in this encounter [facility] 03-15-2024 Telephone encounter Note Name of Caller: Pita Jara Contact Reason for Appointment: Pita called in regards to scheduling an appointment for the patient. Pita is requesting a call back to schedule the appointment. Please advise. Office Name: Behavioral Health Medication Refills need, if any: No Medication Name: None [facility] 03-08-2024 Telephone encounter Note Recent Visits Date Type Provider Dept 06/20/23 Office Visit Edith Pierce MD [facility] Showing recent visits within past 365 [...] controlled medications from any other provider? N/A [facility] 03-08-2024 Miscellaneous Notes Recent Visits Date Type Provider Dept 06/20/23 Office Visit Edith Pierce MD [facility] Showing recent visits within past 365 [...] other provider? N/A documented in this encounter [facility] 02-06-2024 Note Addended by: MELISSA MILLS on: 02/06/2024 04:34 PM Modules accepted: Orders [facility] 02-06-2024 Note Addended by: MELISSA MILLS on: 02/06/2024 04:34 PM Modules accepted: Orders [facility] 02-06-2024 Miscellaneous Notes Addended by: MELISSA MILLS on: 02/06/2024 04:34 PM Modules accepted: Orders Pita left a VM in regards to the patient's medication refills. She states in the VM that the patient will need a refill of her Flomax to the [facility] in [place]. Medication refilled at this time. TC to [...] patient. Thank you. documented in this encounter [facility] 02-06-2024 Telephone encounter Note Pita left a VM in regards to the patient's medication refills. She states in the VM that the patient will need a refill of her Flomax to the [facility] in [place]. Medication refilled at this time. [facility] 02-06-2024 Telephone encounter Note TC to patient, [...] the call to reschedule if it's needed. [facility] 02-02-2024 Telephone encounter Note Attempted to call patient to discuss upcoming appointment. LVM to return call to office. T [facility] 02-02-2024 Telephone encounter Note Please call patient and check in to see if follow up is needed. If follow up is needed, please reschedule patient. Thank you. [facility] 12-01-2023 Miscellaneous Notes 1st attempt. Patient mailbox [...] Visit date not found Patient Phone numbers: [phone] (home) Request is for script(s) to be escript to pharmacy. Denise Trevizo CMA documented in this encounter [facility] 11-21-2023 Telephone encounter Note Patient is [...] prior to picking up the medication: Yes [facility] 11-21-2023 Miscellaneous Notes Patient is out of [...] the medication: Yes documented in this encounter [facility] 11-11-2023 Telephone encounter Note Recent Visits Date Type Provider Dept 06/20/23 Office Visit Edith Pierce MD [facility] Showing recent visits within past 365 days [...] 03/24/2022 HDL 44 06/28/2023 TRIG 106 06/28/2023 [facility] 11-11-2023 Miscellaneous Notes Recent Visits Date Type Provider Dept 06/20/23 Office Visit Edith Pierce MD [facility] Showing recent visits within past 365 [...] TRIG 106 06/28/2023 documented in this encounter [facility] 09-16-2023 Telephone encounter Note Ordering provider: Date [...] of last refill (see medication tab): 09/07/23 [facility] 09-16-2023 Miscellaneous Notes Ordering provider: Date of [...] medication tab): 09/07/23 documented in this encounter [facility] 09-06-2023 Telephone encounter Note Name of caller: Pita Contact phone number: [phone] Relationship to Patient: family member patient and [...] business hours to return their call: No [facility] 09-06-2023 Miscellaneous Notes Name of caller: Pita Contact phone number: [phone] Relationship to Patient: family member patient and [...] their call: No documented in this encounter [facility] 09-04-2023 Emergency department Note Physician's here to transport pt. Urine collection system turned off, brief placed on pt for transport as pts pants were wet per shift supervisor melting. Loraine Wei RN 09/04/23 0817 [facility] 09-04-2023 Emergency department Note Physician's here to transport pt. Urine collection system turned off, brief placed on pt for transport as pts pants were wet per shift supervisor melting. Loraine Wei RN 09/04/23 0817 Pt pressed [...] blanket be pulled over her right arm. [place] adjusted. Zonia Lindsay RN 09/04/23 0629 [facility] arranged through [facility] 0815. Zonia Lindsay RN 09/04/23 0625 Answered patient call light. Patient requests that her purewick be straightened. Purewick adjusted. Zonia Lindsay RN 09/04/23 0600 Answered patient's call light. [...] tissue box be set on her lap. Richard has 600mL of urine. Zonia Lindsay RN [...] RN 09/04/23 0538 documented in this encounter [facility] 09-04-2023 Emergency department Note Pt pressed call button stating she peed around the purewick. Canister noted to be full, emptied and replaced. New chux placed under pt. Belongings including keys placed in belongings bag. VS obtained. Pt advised of ETA of transport. Saline lock right a/c removed intact and dressing applied. Loraine Wei RN 09/04/23 0755 Loraine Wei RN 09/04/23 0833 [facility] 09-04-2023 Emergency department Note Answered patient's call light. Patient states that she is done with the water and would like to lay back down again. Patient re-adjusted in bed. Zonia Lindsay RN 09/04/23 0636 [facility] 09-04-2023 Emergency department Note Answered patients call light. Patient requests a cup of ice-free water. Patient provided with water and patient repositioned in bed. Zonia Lindsay RN 09/04/23 0633 [facility] 09-04-2023 Emergency department Note Answered patient's call light. Patient requests that the blanket be pulled over her right arm. [place] adjusted. Zonia Lindsay RN 09/04/23 0629 [facility] 09-04-2023 Emergency department Note [facility] arranged through [facility]. [facility] 0815. Zonia Lindsay RN 09/04/23 0625 [facility] 09-04-2023 Emergency department Note Answered patient call light. Patient requests that her purewick be straightened. Purewick adjusted. Zonia Lindsay RN 09/04/23 0600 [facility] 09-04-2023 Hospital Discharge instructions Lilia Beard MD - 09/04/2023 5:51 AM EST Your covid swab today was negative. The following attachments cannot be sent through Care Everywhere.Shortness of Breath (Dyspnea) (Faro[place])documented in this encounter [facility] 09-04-2023 Emergency department Note Answered patient's call light. Patient requesting her purewick be checked. This nurse explained that the purewick is working. Zonia Lindsay RN 09/04/23 0552 [facility] 09-04-2023 Emergency department Note Answered patient's call light. Patient requests repositioning. Patient boosted in bed. Patient states that she hears a vacuum behind her. This nurse explains that is the sound of the purewick working. Zonia Lindsay RN 09/04/23 0549 [facility] 09-04-2023 Emergency department Note Answered patient's call light. Patient states that she had an accident and needed changed. Patient changed and cleaned. Placed on absorbant pad with purewick in place. Urine specimen sent to lab. Zonia Lindsay RN 09/04/23 0548 [facility] 09-04-2023 Emergency department Note Answered patients call light. Patient requesting that her tissue box be set on her lap. Purewick has 600mL of urine. Zonia Lindsay RN 09/04/23 0547 [facility] 09-04-2023 Emergency department Note Answered patient's call light. Patient states that she is cold. Patient provided with additional blankets and thermostat increased for patient comfort. Zonia Lindsay RN 09/04/23 0546 [facility] 09-04-2023 Emergency department Note Answered patient's call light. Patient requests that the purewick positioning be checked. This nurse verified proper positioning of purewick. Zonia Lindsay RN 09/04/23 0541 [facility] 09-04-2023 Emergency department Note Answered patients call light. Patient requests to have arms tucked in. Patient provided with additional blankets to cover her arms. Zonia Lindsay RN 09/04/23 0540 [facility] 09-04-2023 Emergency department Note Answered patient's call light. Patient requesting additional blankets. Blankets provided to patient. Zonia Lindsay RN 09/04/23 0539 [facility] 09-04-2023 Emergency department Note Patient placed on purewick. Zonia Lindsay RN 09/04/23 0538 [facility] 08-25-2023 Hospital Discharge instructions Miquel Nagel MD - 08/25/2023 11:20 PM EST Please discuss your medications and how to take them with your primary care physician. If you have any worsening symptoms or repeat of symptoms please return to the emergency department for reevaluation documented in this encounter [facility] 08-25-2023 Emergency department Note Pt resting in the bed. Pt on the monitor call light in reach Afua Eagle RN 08/25/23 1827 [facility] 08-25-2023 Emergency department Note Pt resting in the bed. Pt on the monitor call light in reach Afua Eagle RN 08/25/23 182 Bed: 39 Expected date: Expected time: Means of arrival: Comments: EMS Dinora Flores RN 08/25/23 1550 documented in this encounter [facility] 08-25-2023 Emergency department Note Bed: 39 Expected date: Expected time: Means of arrival: Comments: EMS Dinora Flores RN 08/25/23 1550 [facility] 06-22-2023 History of Present illness Narrative Images from the original note were not included. Nick Green MD 06/22/2023 at 2:21 PM Office follow up PATIENT NAME: Jessy Mckeon DATE OF : 1965 TODAY'S DATE: 06/22/2023 CHIEF COMPLAINT: Chief Complaint Patient presents with Urinary Incontinence Yearly follow up Presto XXL maximum absorbency Subjective: Ms. Berrens is a 58 y.o. female who presents [...] 1 each before bedtime. 02/23/23 02/23/24 Yes Aster Sparks APRN - BETH levothyroxine (Synthroid, Levoxyl) 175 MCG tablet Take [...] daily. 02/04/23 Yes Emilia Santos APRN - EXTENSION SERVICE ADVISOR traZODone (Desyrel) 100 MG tablet Take 2 [...] UROBILINOGEN Normal 03/16/2023 Review: Records reviewed from [facility] Impression/Plan Diagnoses and all orders for this [...] 06/22/23 2:21 PM documented in this encounter [facility] 06-20-2023 History of Present illness Narrative Images from the original note were not included. [facility] [address] [facility] [id number] Dept: [phone] Dept Loc: [phone] Reason for Visit: Follow-up (Was also in hospital twice recently pt reports ) Assessment and Plan 1. HTN (hypertension), benign continue her metoprolol however I did restart her on the Norvasc 5 mg 1 tablet p.o. daily. She will continue to monitor by her manifest clerk as well. - Lipid panel - CBC [...] detail Return visit in 3 months. Subjective HPI is a 58-year-old female patient who has a history of chronic disease and diabetes insipidus with hyponatremia she is currently seeing her manifest clerk Dr. Wagner. She is here for a checkup. She [...] psychiatrist regularly Dr. Bowers. She also sees mat roller Dr. Cho for her hypothyroidism. Review of [...] of urine Dyspnea Anxiety Schizoaffective disorder (CMS/HCC) ([facility]) Chest pain Iron (Fe) deficiency anemia GERD (gastroesophageal reflux disease) Depression Suicidal ideations Acute gastric ulcer without hemorrhage or perforation Hypothyroidism Urinary incontinence Diverticulosis of large intestine without diverticulitis Chronic antral gastritis First degree hemorrhoids Nocturia Rotator cuff strain Osteoarthritis of patellofemoral joint Urge incontinence Urinary retention Localized edema Morbid obesity with BMI of 45.0-49.9, adult ([facility]) Hypomagnesemia JOSE A (acute kidney injury) ([facility]) Chronic bilateral low back pain with bilateral sciatica Primary hypothyroidism Psychogenic polydipsia Pneumonia Hyponatremia Hypertension Bipolar disorder ([facility]) Lung infiltrate on CT Chronic schizoaffective disorder ([facility]) Urinary tract infection Urinary tract infection without hematuria, site unspecified Chronic renal disease, stage IV ([facility]) Chronic kidney disease, stage 3b ([facility]) Past Medical History: Diagnosis Date Acid reflux Anxiety Arthritis Asperger syndrome Bipolar disorder ([facility]) Chronic kidney disease stage 4 kidney failure Chronic pain Depression Edema of both legs GERD (gastroesophageal reflux disease) Hemorrhoids Hyperlipidemia Hypertension Hypothyroidism Iron (Fe) deficiency anemia Nephrogenic diabetes insipidus ([facility]) Pain management Retention of urine, unspecified Sciatica SOB (shortness of breath) GRANT Type II or unspecified type diabetes mellitus without mention of complication, not stated as uncontrolled ([facility]) Urinary incontinence nightly Social History Tobacco Use [...] Shania Pierce MD documented in this encounter [facility] 06-20-2023 History of Present illness Narrative Images from the original note were not included. [facility] [address] [facility] [address] [facility] [address] [facility] [id number] Dept: [phone] Dept Loc: [phone] Reason for Visit: Follow-up (Was also in hospital twice recently pt reports ) Assessment and Plan 1. HTN (hypertension), benign continue her metoprolol however I did restart her on the Norvasc 5 mg 1 tablet p.o. daily. She will continue to monitor by her manifest clerk as well. - Lipid panel - CBC [...] detail Return visit in 3 months. Subjective HPI is a 58-year-old female patient who has a history of chronic disease and diabetes insipidus with hyponatremia she is currently seeing her manifest clerk Dr. Wagner. She is here for a checkup. She [...] psychiatrist regularly Dr. Bowers. She also sees mat roller Dr. Cho for her hypothyroidism. Review of [...] of urine Dyspnea Anxiety Schizoaffective disorder (CMS/HCC) ([facility]) Chest pain Iron (Fe) deficiency anemia GERD (gastroesophageal reflux disease) Depression Suicidal ideations Acute gastric ulcer without hemorrhage or perforation Hypothyroidism Urinary incontinence Diverticulosis of large intestine without diverticulitis Chronic antral gastritis First degree hemorrhoids Nocturia Rotator cuff strain Osteoarthritis of patellofemoral joint Urge incontinence Urinary retention Localized edema Morbid obesity with BMI of 45.0-49.9, adult ([facility]) Hypomagnesemia JOSE A (acute kidney injury) ([facility]) Chronic bilateral low back pain with bilateral sciatica Primary hypothyroidism Psychogenic polydipsia Pneumonia Hyponatremia Hypertension Bipolar disorder ([facility]) Lung infiltrate on CT Chronic schizoaffective disorder ([facility]) Urinary tract infection Urinary tract infection without hematuria, site unspecified Chronic renal disease, stage IV ([facility]) Chronic kidney disease, stage 3b ([facility]) Past Medical History: Diagnosis Date Acid reflux Anxiety Arthritis Asperger syndrome Bipolar disorder ([facility]) Chronic kidney disease stage 4 kidney failure Chronic pain Depression Edema of both legs GERD (gastroesophageal reflux disease) Hemorrhoids Hyperlipidemia Hypertension Hypothyroidism Iron (Fe) deficiency anemia Nephrogenic diabetes insipidus ([facility]) Pain management Retention of urine, unspecified Sciatica SOB (shortness of breath) GRANT Type II or unspecified type diabetes mellitus without mention of complication, not stated as uncontrolled ([facility]) Urinary incontinence nightly Social History Tobacco Use [...] Shania Pierce MD documented in this encounter [facility] 06-14-2023 Telephone encounter Note Ordering provider: Fran [...] of last refill (see medication tab): 05/23/23 [facility] 06-14-2023 Miscellaneous Notes Ordering provider: Fran Bowers [...] medication tab): 05/23/23 documented in this encounter [facility] 06-07-2023 Telephone encounter Note FYI [facility] 06-07-2023 Miscellaneous Notes FYI Name of caller: Lila from [facility] Contact phone number: [phone] Relationship to Patient: Lila from [facility] Provider: Dr. Pierce Practice: [facility] Chief Complaint/Reason for Call: Lila from [facility] calling and stated that a plan [...] their call: No documented in this encounter [facility] 06-07-2023 Telephone encounter Note Name of caller: Lila from [facility] Contact phone number: [phone] Relationship to Patient: Lila from [facility] Provider: Dr. Pierce Practice: [facility] Chief Complaint/Reason for Call: Lila from [facility] calling and stated that a plan of care was faxed to the office on 04/12/23 and physicians orders were faxed over on 05/03/23 and 10/09/22. Lila stated that she will be re faxing the forms again today. Please advise. Best time of day caller can be reached: any Patient advised that office/PCP has 24-48 business hours to return their call: No [facility] 05-11-2023 Miscellaneous Notes New Medications Ordered This [...] medication tab): 05/06/23 documented in this encounter [facility] 05-11-2023 Telephone encounter Note New Medications Ordered [...] Refill is requested within expected time frame. [facility] 05-11-2023 Telephone encounter Note This was sent to me in error. Dr BOWERS IS the provider and prescriber of these medications [facility] 05-11-2023 Telephone encounter Note 05/03/22 last seen No future appt T [facility] 05-10-2023 Telephone encounter Note Ordering provider: Fran [...] of last refill (see medication tab): 05/06/23 [facility] 04-22-2023 Telephone encounter Note Last OV:05/03/22 Scheduled: 05/23/23 [facility] 04-22-2023 Miscellaneous Notes Last OV:05/03/22 Scheduled: 05/23/23 [...] medication tab): 12/03/22 documented in this encounter [facility] 04-21-2023 Telephone encounter Note Ordering provider: Stan [...] of last refill (see medication tab): 12/03/22 [facility] 03-23-2023 Nurse Note Report called to Renee ROBERSON at [facility]. [facility] 03-23-2023 Nurse Note Report called to Renee ROBERSON at [facility]. Patient refusing to call and wait for [...] room and labeled. documented in this encounter [facility] 03-23-2023 Note Formatting of this n ote might be different from the original. Pt received auth to go to [facility]. Transportation set up with [facility]they will last picker pt at 4:30 today. Informed TCC Ewelina Wan, community pharmacist, Idalia Ohara, [facility] rehab/Shayna, pt and pt's mother Pita. [facility] 03-23-2023 Note Formatting of this n ote might be different from the original. Pt received auth to go to [facility]. Transportation set up with [facility]/ [facility]they will last picker pt at 4:30 today. Informed TCC Ewelina Wan, community pharmacist, [facility], [facility], pt and pt's mother Pita. [facility] 03-23-2023 Miscellaneous Notes Pt received auth to go to [facility]. Transportation set up with [facility]/ [facility]they will last picker pt at 4:30 today. Informed TCC Ewelina Wan, community pharmacist, Idalia Ohara, [facility]hab/[facility], pt and pt's mother Pita. Discharge med rec and MAR sent to [facility] via [facility] per TCC request. Patient Choice Patient Name: JESSY MCKEON Date of : 1965 All Providers Sent Referral Name: [facility] Phone: [phone] Address: [address] [place], [place] [id number] DC orders and MAR tasked to be sent to [facility]. Received word from [facility] [place] surveyor they have an open bed and can accept today. They are able to provide Butran if written in the discharge orders. Dr. Gonzalez notified. Met with pt at bedside to discuss discharge planning. Pt is agreeable to [facility]. Asked pt about Butran patch, pt requests tcc discuss with her mom Pita. Call placed to Pita, no answer, voicemail left requesting return call. [facility] surveyor met with pt at bedside, pt is agreeable to [facility]. [facility] does not have an open bed at this time. Will plan to dc to [facility] once bed avail. Pt will need [...] yesterday rec IP rehab. Task sent to [facility] to send referral to [facility]. Met with pt and updated her on the referral. Pt is from [facility], wants to go to [facility]. Will discuss with Justyna Dove RN from [facility]. Pt has has been to rehab in the past. CM to follow. Discharge Milestones and Delays Expected Date/Time: 03/24/2023 Afternoon Disposition: Longterm Facility Discharge Milestones Place discharge order Complete med reconciliation Case mgmt discharge readiness Clinical Stability Diagnsotic Workup Expected Discharge History Expected Date/Time Set By Reviewed At 03/24/2023 Afternoon Isabel Kevin RN 03/22/2023 8:32 AM referal to [facility] made today 03/22/2023." 03/21/2023 Afternoon Paul Anderson DO 03/21/2023 12:52 PM 03/22/2023 SARANYA Marroquin 03/21/2023 9:32 AM 03/20/2023 Kevin Grimes DO 03/20/2023 8:43 AM 03/20/2023 SARANYA Marroquin 03/18/2023 9:03 AM 03/18/2023 Ana Sierra MD 03/17/2023 4:21 AM 03/17/2023 Tyler Sawant MD 03/17/2023 4:06 AM 03/17/2023 Tyler Sawant MD 03/16/2023 9:20 PM Length of Stay (Days): 5 GMLOS: 3.8 Referral placed to [facility] per TCC request. Await review and response [...] Pt has requested referral to [facility]; PT/OT orders noted and currently await therapy notes for recommendations prior to beginning referral. Discharge Milestones and Delays Expected Date/Time: 03/22/2023 Disposition: Longterm Facility Discharge Milestones Place discharge order Complete [...] Impaired Permission given to speak with patient passenger representative/caregiver as indicated: Confirmation of Payer with patient/family: Yes Payer Name: Medicare A and B [place]: No Confirmation of Primary Care Physician: Confirmed PCP Name: Dr Akins Seen in last 2 years?: Yes Primary Caregiver: Self If assistance needed, confirmed caregiver ready, willing and able to care for patient at discharge: Confirmed with: Living Arrangements Current Residence: Number of Floors Number of Entry Steps: Bed/Bath Levels: Facility: ([facility]) Facility Name: [phone] Plan to Return: Lives with: Alone Support Systems: Children, Parent, Family members, Friends/neighbors, Comments (Other) (staff at [place]) Activities of Daily Living Ambulation: Assistance Bathing/Dressing: [...] Assistance Provider Name: give some meals at [facility] Laundry/Cleaning: Assistance Provider Laundry/Cleaning Assistance Provider Name: [...] mental status changes. She lives in an [facility] facility. Psych has been consulted. Received 2 doses of IV antibiotics. Wants to return to [facility], will follow for needs. . Ewelina Rojo [...] improved Outcome: Progressing documented in this encounter [facility] 03-23-2023 Note Formatting of this n ote might be different from the original. Discharge med rec and MAR sent to [facility] via [facility] per TCC request. [facility] 03-23-2023 Note Formatting of this n ote might be different from the original. Discharge med rec and MAR sent to [facility] via [facility] per TCC request. [facility] 03-23-2023 Note Formatting of this n ote might be different from the original. Patient Choice Patient Name: JESSY MCKEON Date of : 1965 All Providers Sent Referral Name: [facility] Phone: [phone] Address: [address] [place] [address] [facility] 03-23-2023 Note Formatting of this n ote might be different from the original. Patient Choice Patient Name: JESSY MCKEON Date of : 1965 All Providers Sent Referral Name: [facility] Phone: [phone] Address: [address] [place], [place] [id number] [facility] 03-23-2023 Note Formatting of this n ote might be different from the original. DC orders and MAR tasked to be sent to [facility]. [facility] 03-23-2023 Note Formatting of this n ote might be different from the original. DC orders and MAR tasked to be sent to [facility]. [facility] 03-23-2023 Note Formatting of this n ote might be different from the original. Received word from [facility] surveyor they have an open bed and can accept today. They are able to provide Butran if written in the discharge orders. Dr. Gonzalez notified. [facility] 03-23-2023 Note Formatting of this n ote might be different from the original. Received word from [facility] land surveyor they have an open bed and can accept today. They are able to provide Butran if written in the discharge orders. Dr. Gonzalez notified. [facility] 03-23-2023 Note Formatting of this n ote might be different from the original. Met with pt at bedside to discuss discharge planning. Pt is agreeable to [facility]. Asked pt about Butran patch, pt requests tcc discuss with her mom Pita. Call placed to Pita, no answer, voicemail left requesting return call. [facility] 03-23-2023 Note Formatting of this n ote might be different from the original. Met with pt at bedside to discuss discharge planning. Pt is agreeable to [facility]. Asked pt about Butran patch, pt requests tcc discuss with her mom Pita. Call placed to Pita, no answer, voicemail left requesting return call. T [facility] 03-23-2023 History of Present illness Narrative Physical Therapy Facility/Department: [facility] Physical Therapy Daily Treatment Note NAME: Jessy [...] I. Transfers demo'd Van to FWw. Ambulation satya'hernando Araujo using FWW for 15 ft distances at [...] mention of complication, not stated as uncontrolled ([facility]), and Urinary incontinence. has a past surgical [...] for PT. Patient Stated Goal: go to [facility] to walk better Pain Assessment Pain Assessment: [...] Code Treatment Minutes: 24 Minutes (FA, GT) SKI BINDING FITTER AND REPAIRER wore PPE in compliance with hospital guidelines and regulation when treating this patient. Aspen Mercer, IVETTE Occupational Therapy Facility/Department: 5W Occupational Therapy Initial [...] not safe to return home alone to [facility] living apt. Recommend IP REHAB upon discharge. Prognosis: Good Decision Making: Low Complexity Exam: [facility] Activity Tolerance Activity Tolerance: Patient Tolerated treatment [...] mention of complication, not stated as uncontrolled ([facility]), and Urinary incontinence. has a past surgical [...] Type of Home: Independent living (2nd floor [facility]) Home Layout: One level Home Access: [...] needed Therapy Time Individual Co-treatment Time In 33 Time Out 0949 Minutes 16 Goals and/or treatment plan was established in collaboration with patient/family/other representatives. Patient's Occupational Therapy Plan of Care supervision is transferred to [facility] Occupational Therapist. Lourdes Escobedo OTR/L Nutrition update completed. Chart reviewed. Patient to be monitored and followed by the diet audiometric technician. Images from the original note were not included. Hospitalist Progress Note 03/23/2023 Subjective: Admit Date: 03/16/2023 PCP: Edith Pierce MD Room#: [id number]/[id number] A Brief Hospital course: Jessy Mckeon is [...] Kevin Grimes DO, 1 patch at 03/20/23 164 clonazePAM (KlonoPIN) tablet 0.25 mg, 0.25 mg, [...] Ana Sierra MD, 17 g at 03/20/23 08 risperiDONE (RisperDAL) tablet 3 mg, 3 mg, Oral, Nightly, Ana Sierra MD, 3 mg at 03/22/231953 senna-docusate sodium (Senokot-S) 8.6-50 MG tablet 2 tablet, 2 tablet, Oral, BID, Kevin Grimes DO, 2 tablet at 03/23/23 08 tamsulosin (Flomax) 24 hr capsule 0.4 mg, [...] qWeek on [facility](Dr. Jorge Gonsales, [address] [place] [address]; prescribes outpatient); no one [...] Pita Jara Mobile Relation: Parent Preferred language: Faroese Fiberglass Quality Technician needed? No Secondary Emergency Contact: Oralia Jarary Relation: Other Lissett Gonzalez MD Division of Hospitalist Medicine Inpatient Medical Services/[facility] Jessy Mckeon is a 58 y.o. female Chief Complaint Patient presents with Altered Mental Status Patient seen and examined, toelrating medications, mild side effects reported though she is sleepy following AM valproic acid. I did discuss concern about impaired mobility and falls, she minimizes this. She [id number] that she "mistly" sleeps in a chair, feels this makes it easier to get up (especially since she lives alone.). Current Facility-Administered Medications: acetaminophen (Tylenol) tablet 650 mg, 650 mg, Oral, q6h PRN, 650 mg at 03/22/231957 OR acetaminophen (Tylenol) suppository 650 mg, 650 mg, Rectal, q6h PRN, Sonamjohanny Sierra MD amLODIPine (Norvasc) tablet 10 mg, 10 mg, Oral, Daily, Paul Anderson DO, 10 mg at 03/23/23 08 buprenorphine (Butrans) 20 MCG/HR 1 patch, 1 [...] Ana Sierra MD, 60 mg at 03/23/23 0829 heparin injection 5,000 Units, 5,000 Units, SubCUTAneous, 3 times per day, Ana Sierra MD, 5,000 Units at 03/20/23 1525 hydrALAZINE (Apresoline) tablet 50 mg, 50 mg, Oral, TID, Paul Anderson DO, 50 mg at 03/23/23 0830 lamoTRIgine (LaMICtal) tablet 100 mg, 100 mg, Oral, Nightly, Fran Bowers MD, 100 mg at 03/22/23 1954 levothyroxine (Synthroid, Levoxyl) tablet 175 mcg, 175 [...] BID, Kevin Grimes DO, 2 tablet at 03/23/23 08 tamsulosin (Flomax) 24 hr capsule 0.4 mg, [...] Date: 03/16/2023 PCP: Edith Pierce MD Room#: [id number]/W5-536 A Brief Hospital course: Jessy Mckeon is [...] PRN, Fran Bowers MD, 0.25 mg at 03/22/2324 divalproex (Depakote ER) 24 hr tablet 250 [...] Daily, Ana Sierra MD, 175 mcg at 03/22/2324 metoprolol tartrate (Lopressor) tablet 100 mg, 100 [...] 20 mcg/hr qWeek on [facility](Dr. Jorge Gonsales, [address] [place] [address]; prescribes outpatient); no one currently [...] Pita Jara Mobile Relation: Parent Preferred language: Faroese Fiberglass Quality Technician needed? No Secondary Emergency Contact: Mamadou Jara Relation: Other Paul Anderson DO Division of Hospitalist Medicine Inpatient Medical Services/[facility] Jessy Mckeon is a 58 y.o. female Chief Complaint Patient presents with Altered Mental Status Patient seen and examined. Remains open to Rx including ECF prefers [facility]. Discussed butrans Rx, sees a physician at [facility] ([facility]). Current Facility-Administered Medications: acetaminophen (Tylenol) tablet 650 [...] Ana Sierra MD, 0.4 mg at 03/21/23 0801 traZODone (Desyrel) tablet 100 mg, 100 mg, [...] states her goal is to go to [facility]. From a physical perspective, feel rehab-level PT [...] them, she is able to identify buttons clinical nurse occupational medicine light.) Hearing: Functional/adequate for paticipation in therapy [...] States she is hoping to go to [facility]. Pt notes she has been to [facility], but not really ambulating-asks if we could [...] History Social/Functional History Additional Comments: Lives at [facility] [place]--states she has two rollators -one wider for [...] Plan of Care supervision is transferred to [facility] Department Physical Therapist. Obed Solis PT Hospitalist Progress Note - [facility] - Acute Care [facility] ([facility]) 03/21/2023 12:52 PM Subjective and Objective: Admit Date: 03/16/2023 PCP: Edith Pierce MD Chief Complaint Patient presents with Altered Mental Status Adult diet Regular; Low Sodium (2 gm) I/O last 3 completed shifts: In: - (0 mL/kg) Out: 2550 (22.5 mL/kg) [Urine:2550 (0.6 mL/kg/hr)] Weight: 113.2 kg @IODETAILS@ @[id number]@ Medications: buprenorphine, 1 patch, TransDERmal, Weekly divalproex, [...] CHOL No results found for: PHART, PO2ART, [id number] No results for input(s): INR in the [...] will not prescribe either -Dr. Jorge Gonsales, [address] [place] [address]; prescribes outpatient -Patient may [...] -Prescription drug management Hospitalist Progress Note - [facility] Acute Care [facility] ([facility]) 03/20/2023 8:41 AM Subjective and Objective: Admit Date: 03/16/2023 PCP: Edith Pierce MD Chief Complaint Patient presents with Altered Mental Status Adult diet Regular; Low Sodium (2 gm) I/O last 3 completed shifts: In: 550 (4.9 mL/kg) [P.O.:550] Out: 1500 (13.3 mL/kg) [Urine:1500 (0.4 mL/kg/hr)] Weight: 113.2 kg @IODETAILS@ @[id number]@ Medications: divalproex, 250 mg, Oral, TID DULoxetine, [...] CHOL No results found for: PHART, PO2ART, [id number] No results for input(s): INR in the [...] complaints, looking to go to facility at [place] GENERAL: calm, alert, baseline mentation CARDIOVASCULAR: regular, [...] will not prescribe either -Dr. Jorge Gonsales, [address] [place] [address]; prescribes outpatient -Patient may [...] Code status: Full Code Dr. Kevin Grimes [facility] Hospitalist Time spent: 40 minutes Has at [...] -Prescription drug management Hospitalist Progress Note - [facility] Acute Care [facility] ([facility]) 03/19/2023 9:01 AM Subjective and Objective: Admit Date: 03/16/2023 PCP: Edith Pierce MD Chief Complaint Patient presents with Altered Mental Status Adult diet Regular; Low Sodium (2 gm) I/O last 3 completed shifts: In: 1260 (11.1 mL/kg) [P.O.:1260] Out: 3450 (30.5 mL/kg) [Urine:3450 (0.8 mL/kg/hr)] Weight: 113.2 kg @IODETAILS@ @[id number]@ Medications: divalproex, 250 mg, Oral, TID DULoxetine, [...] traZODone, 100 mg, Oral, Nightly Recent Labs 03/16/23 1847 03/17/23 0445 03/18/23 0259 WBC 6.3 5.9 5.0 HGB 10.8* 10.2* 9.8* PLT 181 167 186 Recent Labs 03/16/23 1847 03/17/23 0445 03/18/23 0259 NA 134* 137 135 K 4.7 4.3 5.1 CL 101 107 108* CO2 24 24 24 BUN 22* 20* 20* CREATININE 3.07* 2.83* 2.49* GLUCOSE 107* 110* 79 Recent Labs 03/16/23 1847 AST 26 ALT 15 BILITOT 0.3 ALKPHOS 74 No results found for: TRIG, HDL, LDLCALC, CHOL No results found for: PHART, PO2ART, [id number] No results for input(s): INR in the last 72 hours. Recent Labs 03/16/23 1847 TROPONINI <0.012 No results for input(s): DDIMER [...] to go to SNF vs. Rehab at [place] GENERAL: comfortable without complaints CARDIOVASCULAR: RRR no [...] Code status: Full Code Dr. Kevin Grimes [facility] Hospitalist Time spent: 41 minutes Has at [...] be monitored and followed by the diet audiometric technician. Dietitian available upon request. AMANDA Burdick Hospitalist Progress Note - [facility] ([facility]) 03/18/2023 9:37 AM Subjective and Objective: Admit Date: 03/16/2023 PCP: Edith Pierce MD Chief Complaint Patient presents with Altered Mental Status Adult diet Regular; Low Sodium (2 gm) I/O last 3 completed shifts: In: 2428.3 (21.4 mL/kg) [P.O.:150; I.V.:1228.3 (10.8 mL/kg); IV Piggyback:1050] Out: 700 (6.2 mL/kg) [Urine:700 (0.2 mL/kg/hr)] Weight: 113.5 kg @IODETAILS@ @[id number]@ Medications: sodium chloride, 100 mL/hr, Last Rate: [...] traZODone, 100 mg, Oral, Nightly Recent Labs 03/16/23 1847 03/17/23 0445 03/18/23 0259 WBC 6.3 5.9 5.0 HGB 10.8* 10.2* 9.8* PLT 181 167 186 Recent Labs 03/16/23 1847 03/17/23 0445 03/18/23 0259 NA 134* 137 135 K 4.7 4.3 5.1 CL 101 107 108* CO2 24 24 24 BUN 22* 20* 20* CREATININE 3.07* 2.83* 2.49* GLUCOSE 107* 110* 79 Recent Labs 03/16/231846 AST 26 ALT 15 BILITOT 0.3 ALKPHOS 74 No results found for: TRIG, HDL, LDLCALC, CHOL No results found for: PHART, PO2ART, [id number] No results for input(s): INR in the [...] Code status: Full Code Dr. Kevin Grimes [facility] Hospitalist Time spent: 42 minutes Has at [...] 394 ms QTC Interval 436 ms P [place] -13 degrees QRS [place] -2 degrees T Wave [place] 47 degrees [place] Interval 174 ms Complete [...] complete interview 03/18/2023. documented in this encounter [facility] 03-23-2023 Note Formatting of this n ote might be different from the original. [facility] [place] surveyor met with pt at bedside, pt is agreeable to [facility]. [facility] does not have an open bed at this time. Will plan to dc to [facility] once bed avail. Pt will need to provide own Butran patch. Will discuss with pt. [facility] 03-23-2023 Note Formatting of this n ote might be different from the original. [facility] [place] surveyor met with pt at bedside, pt is agreeable to [facility]. [facility] does not have an open bed at this time. Will plan to dc to [facility] once bed avail. Pt will need to provide own Butran patch. Will discuss with pt. [facility] 03-23-2023 Nurse Note Patient refusing to call and wait for help when ambulating between the bedside commode and bed. Patient was provided education on fall risks and safety. Patient refusing purwick. Bed alarm on. [facility] 03-22-2023 Plan of care note Problem: Knowledge Deficit Goal: Patient/family/caregiver demonstrates understanding of disease process, treatment plan, medications, and discharge instructions Outcome: Progressing Problem: Potential for Compromised Skin Integrity Goal: Skin Integrity is Maintained or Improved Outcome: Progressing Goal: Nutritional status is improving Outcome: Progressing Problem: Urinary Incontinence Goal: Perineal skin integrity is maintained or improved Outcome: Progressing [facility] 03-22-2023 Note Formatting of this n ote is different from the original. Images from the original note were not included. Care Management Progress Note PT worked with pt yesterday rec IP rehab. Task sent to [facility] to send referral to [facility]. Met with pt and updated her on the referral. Pt is from [facility], wants to go to [facility]. Will discuss with Justyan Dove RN from [facility]. Pt has has been to rehab in the past. CM to follow. Discharge Milestones and Delays Expected Date/Time: 03/24/2023 Afternoon Disposition: Longterm Facility Discharge Milestones Place discharge order Complete med reconciliation Case mgmt discharge readiness Clinical Stability Diagnsotic Workup Expected Discharge History Expected Date/Time Set By Reviewed At 03/24/2023 Afternoon Isabel Kevin RN 03/22/2023 8:32 AM referal to [facility] made today 03/22/2023." 03/21/2023 Afternoon Paul Anderson, DO 03/21/2023 12:52 PM 03/22/2023 SARANYA Marroquin 03/21/2023 9:32 AM 03/20/2023 Kevin Grimes, DO 03/20/2023 8:43 AM 03/20/2023 SARANYA Marroquin 03/18/2023 9:03 AM 03/18/2023 Ana Sierra MD 03/17/2023 4:21 AM 03/17/2023 Tyler Sawant MD 03/17/2023 4:06 AM 03/17/2023 Tyler Sawant MD 03/16/2023 9:20 PM Length of Stay (Days): 5 GMLOS: 3.8 [facility] 03-22-2023 Note Formatting of this n ote is different from the original. Images from the original note were not included. Care Management Progress Note PT worked with pt yesterday rec IP rehab. Task sent to [facility] to send referral to [facility]. Met with pt and updated her on the referral. Pt is from [facility], wants to go to [facility]. Will discuss with Justyna Dove RN from [facility]. Pt has has been to rehab in the past. CM to follow. Discharge Milestones and Delays Expected Date/Time: 03/24/2023 Afternoon Disposition: Longterm Facility Discharge Milestones Place discharge order Complete med reconciliation Case mgmt discharge readiness Clinical Stability Diagnsotic Workup Expected Discharge History Expected Date/Time Set By Reviewed At 03/24/2023 Afternoon Isabel Kevin RN 03/22/2023 8:32 AM referal to [facility] made today 03/22/2023." 03/21/2023 Afternoon Paul Johnmoriah, DO 03/21/2023 12:52 PM 03/22/2023 Mayda Mcgowan, QUALITY ASSURANCE SUPERVISOR BODY 03/21/2023 9:32 AM 03/20/2023 Kevin Grimes, DO 03/20/2023 8:43 AM 03/20/2023 SARANYA Marroquin 03/18/2023 9:03 AM 03/18/2023 Ana Sierra MD 03/17/2023 4:21 AM 03/17/2023 Tyler Sawant MD 03/17/2023 4:06 AM 03/17/2023 Tyler Sawant MD 03/16/2023 9:20 PM Length of Stay (Days): 5 GMLOS: 3.8 [facility] 03-22-2023 Note Formatting of this n ote might be different from the original. Referral placed to [facility] via [facility] per [facility] request. Await review and response regarding ability to accept. TCC notified. [facility] 03-22-2023 Note Formatting of this n ote might be different from the original. Referral placed to [facility] via [facility] per T[facility] request. Await review and response regarding ability to accept. TCC notified. T [facility] 03-21-2023 Plan of care note Problem: Knowledge Deficit Goal: Patient/family/caregiver demonstrates understanding of disease process, treatment plan, medications, and discharge instructions Outcome: Progressing Problem: Potential for Compromised Skin Integrity Goal: Skin Integrity is Maintained or Improved Outcome: Progressing Goal: Nutritional status is improving Outcome: Progressing Problem: Urinary Incontinence Goal: Perineal skin integrity is maintained or improved Outcome: Progressing [facility] 03-21-2023 Hospital Discharge instructions Paul Anderson DO [...] Unit/Room#: W5-539/W5-539 A Discharging Unit Phone Number: [phone] Emergency Contact: Extended Emergency Contact Information Primary Emergency Contact: Pita Jara [employer] Relation: Parent Preferred language: Faroese Fiberglass Quality Technician needed? No Secondary Emergency Contact: Mamadou Jara [...] incontinence of urine Dyspnea Anxiety Schizoaffective disorder (CMS/[facility]) ([facility]) Chest pain Iron (Fe) deficiency anemia GERD [...] Morbid obesity with BMI of 45.0-49.9, adult ([facility]) Hypomagnesemia JOSE A (acute kidney injury) (CMS/HCC) ([facility]) Chronic bilateral low back pain with bilateral sciatica Primary hypothyroidism Psychogenic polydipsia Pneumonia Hyponatremia Hypertension Bipolar disorder ([facility]) Lung infiltrate on CT Chronic schizoaffective disorder ([facility]) Isolation/Infection: No active isolations No active infections [...] Minimal assistance Toileting Minimal assistance Feeding Independent [place] Minimal assistance Med Delivery yes Wound Care [...] Score: @[email or web address]@ Discharging to Facility/ Agency Name: [facility] Address: [address] [place], [place] [id number] Fax: Dialysis Facility (if applicable) Name: Address: Dialysis Schedule: Phone: Fax: Quality Assurance Supervisor Body/Ocean Export Account Manager signature: ICIAN SECTION Prognosis: excellent Condition at Discharge: stable Rehab Potential (if transferring to Rehab): excellent Recommended Labs or Other Treatments After Discharge: bmp in 2 days, low potassium diet, follow up with nephrology in 1-2 weeks. Physician Certification: I certify the above information and transfer of Jessy Mckeon is necessary for the continuing treatment of the diagnosis listed and that she requires halfway facility for less than 30 days. Update Admission H&P: No change in H&P PHYSICIAN SIGNATURE: documented in this encounter [facility] 03-21-2023 Note Formatting of this n ote might be different from the original. SW following with TCC. Will place amb auth on chart. [facility] 03-21-2023 Note Formatting of this n ote might be different from the original. SW following with TCC. Will place amb auth on chart. [facility] 03-21-2023 Note Formatting of this n ote [...] Milestones and Delays Expected Date/Time: 03/22/2023 Disposition: Longterm Facility Discharge Milestones Place discharge order Complete [...] Length of Stay (Days): 4 GMLOS: 3.8 [facility] 03-21-2023 Note Formatting of this n ote is different from the original. Images from the original note were not included. Care Management Progress Note AMS noted to be improving. IV abx for UTI have completed. Pt noted to be on Butran patch with weekly patch change, which is prescribed by Dr. Jorge Gonsales as an outpt. [facility] PT/OT orders noted and currently await therapy notes for recommendations prior to beginning referral. Discharge Milestones and Delays Expected Date/Time: 03/22/2023 Disposition: Longterm Facility Discharge Milestones Place discharge order Complete [...] Length of Stay (Days): 4 GMLOS: 3.8 [facility] 03-21-2023 Note Formatting of this n ote might be different from the original. SW met with pt. Lisseth self. Pt states she is not a registered voter. T [facility] 03-21-2023 Note Formatting of this n ote might be different from the original. SW met with pt. Lisseth self. Pt states she is not a registered voter. [facility] 03-19-2023 Note Formatting of this n ote might be different from the original. Received message from Dr Grimes that pt is requesting to go to [facility] upon dc. Requested PT/OT orders from Dr Grimes for recommendations. Await PT/OT evals/ recs and will see if [facility] is an option at that time. TCC will continue to follow for add'l needs for dc. [facility] 03-19-2023 Note Formatting of this n ote might be different from the original. Received message from Dr Grimes that pt is requesting to go to [facility] upon dc. Requested PT/OT orders from Dr Grimes for recommendations. Await PT/OT evals/ recs and will see if [facility] is an option at that time. TCC will continue to follow for add'l needs for dc. [facility] 03-18-2023 Plan of care note Problem: Knowledge Deficit Goal: Patient/family/caregiver demonstrates understanding of disease process, treatment plan, medications, and discharge instructions Outcome: Progressing Problem: Potential for Compromised Skin Integrity Goal: Skin Integrity is Maintained or Improved Outcome: Progressing Goal: Nutritional status is improving Outcome: Progressing Problem: Urinary Incontinence Goal: Perineal skin integrity is maintained or improved Outcome: Progressing [facility] 03-18-2023 Consult note Associated Order (s): IP [...] She shared her wish to [facility]. Patient has a long history ofn mental health treatment for schizoaffective disorder. Had previously been on lithium and high dose risperidone when receiving care forom Dr. Jhno Verduzco at [facility]. Here she received ECT and subsequently has [...] 432 ms QTC Interval 398 ms P [place] 7 degrees QRS [place] 13 degrees T Wave [place] 31 degrees [place] Interval 163 ms Assessment Schizoaffective disorder Delirium UTI Plan Medications as ordered. To ECF as able in coming days. Patient will follow up with this rfp writer as outpatient. [facility] 03-18-2023 Consult note Associated Order (s): IP [...] She shared her wish to go to [facility]. Patient has a long history ofn mental health treatment for schizoaffective disorder. Had previously been on lithium and high dose risperidone when receiving care forom Dr. Jhon Verduzco at [facility]. Here she received ECT and subsequently has [...] Nightly, Fran Bowers MD, 100 mg at 03/17/23 203 Allergies Allergen Reactions Benztropine Disorientation and loss [...] 432 ms QTC Interval 398 ms P [place] 7 degrees QRS [place] 13 degrees T Wave [place] 31 degrees [place] Interval 163 ms Assessment Schizoaffective disorder Delirium UTI Plan Medications as ordered. To ECF as able in coming days. Patient will follow up with this rfp writer as outpatient. documented in this encounter [facility] 03-18-2023 Note Formatting of this n ote might be different from the original. Care Managment Initial Assessment Date: 03/18/2023 Patient Name: Jessy Mckeon : 1965 Patient Information Source of Information: Patient Cognition/Language: Impaired Permission given to speak with patient passenger representative/caregiver as indicated: Confirmation of Payer with [...] Number of Entry Steps: Bed/Bath Levels: Facility: ([facility]) Facility Name: [address] [phone] Plan to Return: Lives with: Alone Support Systems: Children, Parent, Family members, Friends/neighbors, Comments (Other) (staff at [place]) Activities of Daily Living Ambulation: Assistance Bathing/Dressing: [...] Assistance Provider Name: give some meals at [place] Laundry/Cleaning: Assistance Provider Laundry/Cleaning Assistance Provider Name: [...] mental status changes. She lives in an [place] facility. Psych has been consulted. Received 2 doses of IV antibiotics. Wants to return to [place], will follow for needs. . Ewelina Rojo RN [facility] [employer] 03-18-2023 Note Formatting of this n ote might be different from the original. Care Managment Initial Assessment Date: 03/18/2023 Patient Name: Jessy Mckeon : 1965 Patient Information Source of Information: Patient Cognition/Language: Impaired Permission given to speak with patient passenger representative/caregiver as indicated: Confirmation of Payer with [...] Number of Entry Steps: Bed/Bath Levels: Facility: ([facility]) Facility Name: [address] [phone] Plan to Return: Lives with: Alone Support Systems: Children, Parent, Family members, Friends/neighbors, Comments (Other) (staff at [facility]) Activities of Daily Living Ambulation: Assistance Bathing/Dressing: [...] Assistance Provider Name: give some meals at [facility] Laundry/Cleaning: Assistance Provider Laundry/Cleaning Assistance Provider Name: [...] mental status changes. She lives in an [facility] facility. Psych has been consulted. Received 2 doses of IV antibiotics. Wants to return to [place], will follow for needs. . Ewelina Rojo RN T [facility] 03-18-2023 Nurse Note patient experiencing nonsustaining bradycardia when sleeeping. shes dipping into the 40's and comes right back up. currently between 48-58. otherwise asymptomatic. BP 163/92. Dr. Seirra was notified. No New orders at this time. [facility] 03-18-2023 Plan of care note Problem: Knowledge Deficit Goal: Patient/family/caregiver demonstrates understanding of disease process, treatment plan, medications, and discharge instructions Outcome: Progressing Problem: Potential for Compromised Skin Integrity Goal: Skin Integrity is Maintained or Improved Outcome: Progressing Goal: Nutritional status is improving Outcome: Progressing Problem: Urinary Incontinence Goal: Perineal skin integrity is maintained or improved Outcome: Progressing [facility] 03-17-2023 Nurse Note Patients BP 168/105 with activity at shift change. PO metoprolol administered with night meds. Repeat BP 137/94. [facility] 03-17-2023 Note Formatting of this n ote [...] IV fluid. Will follow for needs. . [facility] 03-17-2023 Note Formatting of this n ote [...] fluid. Will follow for needs. . T [facility] 03-17-2023 History and physical note History and Physical - [facility] Acute Care [facility] ([facility]) Admit Date: 03/16/2023 PCP: Edith Pierce MD [...] 394 ms QTC Interval 436 ms P [place] -13 degrees QRS [place] -2 degrees T Wave [place] 47 degrees [place] Interval 174 ms Complete [...] Code status: Full Code Dr. Kevin Grimes [facility] Hospitalist Time spent: 85 minutes Has at least of one of these; Number and Complexity of Problems Addressed at the Encounter: -1 or more chronic illnesses with exacerbation, progression, or side effects of treatment -2 or more stable, chronic illnesses -1 acute illness with systemic symptoms -1 acute, complicated injury Risk of Complications and/or Morbidity or Mortality of Patient Management: -Prescription drug management [facility] 03-17-2023 History and physical note History and Physical - [facility] Acute Care [facility] ([facility]) Admit Date: 03/16/2023 PCP: Edith Pierce MD [...] 394 ms QTC Interval 436 ms P [place] -13 degrees QRS [place] -2 degrees T Wave [place] 47 degrees [place] Interval 174 ms Complete [...] or any previous visit. CBC: Recent Labs 03/16/23184603/17/23444 WBC 6.3 5.9 RBC 3.44* 3.27* HGB [...] Code status: Full Code Dr. Kevin Grimes [facility] Hospitalist Time spent: 85 minutes Has at [...] -Prescription drug management documented in this encounter [facility] 03-17-2023 Nurse Note Patients medications have been locked up in the med room and labeled. [facility] 03-17-2023 Plan of care note Problem: Knowledge Deficit Goal: Patient/family/caregiver demonstrates understanding of disease process, treatment plan, medications, and discharge instructions Outcome: Progressing Problem: Potential for Compromised Skin Integrity Goal: Skin Integrity is Maintained or Improved Outcome: Progressing Goal: Nutritional status is improving Outcome: Progressing Problem: Urinary Incontinence Goal: Perineal skin integrity is maintained or improved Outcome: Progressing [facility] 03-17-2023 Emergency department Note Patient ambulated to wheelchair then the toilet with steadying assist. Mindy Jacobson RN 03/17/23 0314 [facility] 03-17-2023 Emergency department Note Patient ambulated to [...] until verified by MD Mindy Jacobson RN 03/16/[address] Sierra transferred to MD office Mindy Jacobson RN 03/16/232117 Called Torie at [facility] and requested call back from [facility] Mindy Jacobson RN 03/16/232051 Patient [...] of this encounter. History provided by: Patient japanese interpreter used: No Altered Mental Status Presenting symptoms: [...] not homeless, taking medications as prescribed, not [facility] resident, not recent change in medication, not [...] Diagnoses: Bipolar affective disorder, remission status unspecified (HCC); Panic disorder with agoraphobia divalproex (Depakote ER) [...] nursing note reviewed. Exam conducted with a attending pathologist present. Constitutional: General: She is not in [...] Culture. Procedure Abnormality Status --------- ------ Complete Urinalysis[[id number]] Abnormal Final result Please view results for [...] Procedure Abnormality Status --------- ------ Basic metabolic panel[[id number]] Abnormal Final result Please view results for [...] injection 5,000 Units (5,000 Units SubCUTAneous Given 03/17/236) sodium chloride 0.9 % infusion (100 mL/hr [...] Medicine Provider Cameron Marquez MD 03/17/23 0655 Emergency Department Encounter Location: [facility] ED Patient: Jessy Mckeon : 1965 Date [...] confusion, discussed with admitting Dr. France at [facility], in agreement with plan for observation telemetry admission, patient stable for admission. Diagnosis: Acute on chronic renal insufficiency, urinary tract infection, altered mental status Diagnosis: Admission (Please note that portions of this note may have been completed with a voice recognition program. Efforts were made to edit the dictations but occasionally words are mis-transcribed.) Tyler Sawant MD Acute Care [facility] Tyler Sawant MD 03/16/232120 Jessy Mckeon, age 58, came to ED5 with family member. Family member stated she has altered mental status and says "I think its her sodium levels". Patient is AO x3. Patient says she has Diabetes Insipidus. Family member stated the dizziness started around 3 days ago. Vitals obtained. Call light within reach. documented in this encounter [facility] 03-17-2023 Emergency department Note Pt provided with ice water and assisted with drinking. Ewelinamer Duncan 03/17/23 0131 [facility] 03-17-2023 Emergency department Note Patient took home medication divalproex ER 250mg, lamotrigine 200mg, risperidone 6mg, and trazodone 200mg. Held clonazepam due to mental status not at baseline Mindy Jacobson RN 03/17/23 0013 [facility] 03-16-2023 Emergency department Note Mother at bedside with patient medication from home as well as fast food. Patient sat up to eat. Mother verbalized understanding not to pass home medication until verified by MD Mindy Jacobson RN 03/16/232317 [facility] 03-16-2023 Emergency department Note Call back from Dr. Sierra transferred to MD office Mindy Jacobson RN 03/16/232117 [facility] 03-16-2023 Emergency department Note Called Torie at [facility] and requested call back from [facility] Mindy Jacobson RN 03/16/232051 [facility] 03-16-2023 Emergency department Note Patient assisted to bedside commode Mindy Jacobson RN 03/16/232017 [facility] 03-16-2023 Note Sinus rhythm Rate 74 Abnormal R-wave progression, early transition Probable LVH with secondary repol abnrm Compared to ECG 12/23/2021 08:16:34 No significant changes Electronically Signed On 8-2023 18:40:49 EDT by Cameron BOWLES 03-16-2023 Note Sinus rhythm Rate 74 Abnormal [...] ago. Vitals obtained. Call light within reach. [facility] 03-16-2023 Physician Emergency department Note EMERGENCY DEPARTMENT ENCOUNTER Pt Name: Jessy Mckeon Birthdate 1965 Date of evaluation: 03/16/2023 ED Provider: Cameron Marquez MD CHIEF COMPLAINT Chief Complaint Patient presents with Altered Mental Status HISTORY OF PRESENT ILLNESS (Location/Symptom, Timing/Onset, Context/Setting, Quality, Duration, Modifying Factors, Severity) Note limiting factors. I wore appropriate PPE for the entirety of this encounter. History provided by: Patient japanese interpreter used: No Altered Mental Status Presenting symptoms: [...] not homeless, taking medications as prescribed, not [facility] resident, not recent change in medication, not [...] Diagnoses: Bipolar affective disorder, remission status unspecified ([facility]); Panic disorder with agoraphobia divalproex (Depakote ER) [...] nursing note reviewed. Exam conducted with a attending pathologist present. Constitutional: General: She is not in [...] Culture. Procedure Abnormality Status --------- ------ Complete Urinalysis[[id number]] Abnormal Final result Please view results for [...] Procedure Abnormality Status --------- ------ Basic metabolic panel[[id number]] Abnormal Final result Please view results for [...] injection 5,000 Units (5,000 Units SubCUTAneous Given 03/17/236) sodium chloride 0.9 % infusion (100 mL/hr [...] Emergency Medicine Provider Cameron Marquez MD 03/17/2355 [employer] Phone: 03-16-2023 Physician Emergency department Note Emergency Department Encounter Location: [facility] ED Patient: Jessy Mckeon : 1965 Date [...] confusion, discussed with admitting Dr. France at [facility], in agreement with plan for observation telemetry admission, patient stable for admission. Diagnosis: Acute on chronic renal insufficiency, urinary tract infection, altered mental status Diagnosis: Admission (Please note that portions of this note may have been completed with a voice recognition program. Efforts were made to edit the dictations but occasionally words are mis-transcribed.) Tyler Sawant MD Acute Care [facility] Tyler Sawant MD 03/16/232120 [facility] 03-16-2023 Telephone encounter Note Noted and agreed [facility] 03-16-2023 Telephone encounter Note FYI [facility] 03-16-2023 Miscellaneous Notes Noted and agreed FYI S: Patient motherPita, spoke with [facility] nurse with patient verbal permission regarding [...] AND [3] new-onset Protocols used: Confusion - [id number] documented in this encounter [facility] 03-16-2023 Telephone encounter Note S: Patient mother, Pita, spoke with [facility] nurse with patient verbal permission regarding [...] AND [3] new-onset Protocols used: Confusion - [id number] [facility] 03-11-2023 Miscellaneous Notes Patient LVM on rx line stating she needs new prescription for her incontinence supplies. Returned call to patient and advised her new order was faxed to [facility] yesterday. She verbalizes understanding. Christine with [...] Aster SAUCEDA that supplies were sent to [facility] and that correct address is in letter (scanned into media). Left VM relaying this information and also advising that she can follow up with her trimming caser through her insurance regarding medical supplies too per Vini RODRIGUEZ and Aster SAUCEDA. Closing encounter at this time. documented in this encounter [facility] 03-11-2023 Telephone encounter Note Patient LVM on rx line stating she needs new prescription for her incontinence supplies. Returned call to patient and advised her new order was faxed to [facility] yesterday. She verbalizes understanding. [facility] 03-03-2023 Telephone encounter Note Christine with & [facility] left a VM stating they are [...] FYI for when new forms come in. [facility] 03-03-2023 Miscellaneous Notes Christine with [facility] [...] that she can follow up with her trimming caser through her insurance regarding medical supplies too per Vini RODRIGUEZ and Aster SAUCEDA. Closing encounter at this time. documented in this encounter [facility] 02-24-2023 Telephone encounter Note Pt left VM [...] that she can follow up with her trimming caser through her insurance regarding medical supplies too per [employer]ini RODRIGUEZ and Aster SAUCEDA. Closing encounter at this time. [facility] 02-23-2023 History of Present illness Narrative [facility] [address] [facility] [address] Dept: [phone] Dept Loc: [phone] Urology Telemedicine Visit Aster Sparks APRN, CNP [...] results. Letter created for incontinence supplies through [employer] per patient request. She requires 4 incontinence [...] for Urinary incontinence . Aster Sparks APRN, CNP [facility] Subjective: Ms. Mckeon is a 58 [...] stated that they are currently in the [facility]. If the patient is a minor, [...] 1 view Narrative: Patient Name: JESSY MCKEON Exam Date/Time: 07/15/2022 14:19 Procedure: XR CHEST [...] portions of this chart were dictated using [employer] voice recognition software. It is possible that typos and/or omissions and/or substitutions of words and/or phrases may exist, which may alter the intended meaning of the dictating provider. documented in this encounter [facility] 02-08-2023 Telephone encounter Note Left voicemailed to advise you that the provider will not be in the office this day therefore your appointment has been cancelled. If you would like to reschedule your appointment due to having urological concerns, please call the office at [phone] to reschedule your 1 year follow up. [...] for your refill to be called in. [facility] 02-08-2023 Miscellaneous Notes Left voicemailed to advise you that the provider will not be in the office this day therefore your appointment has been cancelled. If you would like to reschedule your appointment due to having urological concerns, please call the office at [phone] to reschedule your 1 year follow up. [...] be called in. documented in this encounter [facility] 12-01-2022 Miscellaneous Notes Pt has been scheduled [...] December 01, 2022 11:42 AM Clive Bynum [facility] Triage Pool Patient name: Jessy Mckeon, : 1965 is currently scheduled for an office visit on: n/a . The patient is requesting to complete labs prior to their appointment. The patient can be contacted at [phone] (home) [phone] (cell) with any additional needs/concerns regarding this [...] contact the patient for additional information at [phone] (home) [phone] (cell). Thank you, Clive Bynmu December 01, 2022 11:09 AM Pharmacy interfaced requesting the following refill. Requested Prescriptions Pending Prescriptions Disp Refills levothyroxine (SYNTHROID) 200 mcg tablet [Pharmacy Med Name: LEVOTHYROXINE 200 MCG TABLET] 90 tablet 1 Sig: take 1 tablet by mouth once daily Patient last appointment: 01/06/2022 Next Appointment: Visit date not found Patient Phone numbers: [phone] (home) Request is for script(s) to be escript to pharmacy. Denise Trevizo CMA documented in this encounter [facility] 11-19-2022 Miscellaneous Notes Wrong dose. 175 [...] Visit date not found Patient Phone numbers: [phone] (home) Request is for script(s) to be escript to pharmacy. Denise Trevizo CMA documented in this encounter [facility] 11-03-2022 Miscellaneous Notes Please contact Justine [...] Bri Owens LPN documented in this encounter [facility] 09-13-2022 Miscellaneous Notes The following approved [...] Christelle Montanez MA documented in this encounter [facility] 09-06-2022 Miscellaneous Notes Tried to call [...] patient but her line rings busy. Sent MyChart message to advise her labs need to be completed prior to her appointment and to please call to reschedule. Leisa Nelson September 06, 2022 11:20 AM documented in this encounter [facility] 08-18-2022 Miscellaneous Notes The following approved [...] advise. Mireya Castellon documented in this encounter [facility] 08-17-2022 Telephone encounter Note Last seen:05/03/22 [facility] 08-17-2022 Miscellaneous Notes Last seen:05/03/22 documented in this encounter [facility] 07-27-2022 Miscellaneous Notes Patient left message with call center, currently scheduled for an office visit on: 09/06/22. The patient is requesting to complete labs prior to their appointment. Please advise. Thank you. Leisa Nelson July 27, 2022 3:50 PM ----- Message from Bianka Herrera sent at 07/27/2022 3:38 PM EST ----- Regarding: Endo/ hSania Cho/ labs before appt Subject Line Format: [Specialty] / [Provider Name] / Requesting Labs Prior To Appointment Patient name: Jessy Mckeon, : 1965 is currently scheduled for an office visit on: 09/06/22. The patient is requesting to complete labs prior to their appointment. The patient can be contacted at [phone] (home) [phone] (cell) with any additional needs/concerns regarding this request. WANTS ORDERS MAILED TO HOME ADDRESS: [address] [place] [address] Dr Sneed [address] [place] [phone] CALL WHEN MAILED Thank you, Bianka Javier July 27, 2022 3:39 PM documented in this encounter [facility] 01-06-2022 History of Present illness Narrative [...] essential hypertension Bipolar I disorder in remission ([facility]) BMI 45.0-49.9, adult ([facility]) Eating disorder GERD (gastroesophageal reflux disease) Heart murmur Hyperparathyroidism , secondary, non-renal ([facility]) Irregular menses ammenorrhea Nephrogenic diabetes insipidus ([facility]) Obesity, morbid, BMI 40.0-49.9 ([facility]) Overweight Parkinsonism due to drug ([facility]) Urinary retention with incomplete bladder emptying Vitamin [...] ONE TABLET AT 8AM & 8PM Acidophilus-Pectin, [place] 25 million cell -100 mg tab TAKE [...] 2022 11:38 AM documented in this encounter [facility] 12-29-2021 Miscellaneous Notes The following approved [...] Blanca Esparza CMA documented in this encounter [facility] 10-13-2017 History of Past i llness Narrative Problem Noted Date Resolved Date Bipolar 1 disorder, mixed, severe 10/13/2017 10/21/2017 Dizzy 09/06/2017 09/09/2017 documented as of this encounter (statuses as of 12/30/2021) [facility] History of Past illness Narrative* Problem Noted Date Resolved Date Bipolar 1 disorder, mixed, severe 10/13/2017 10/21/2017 Dizzy 09/06/2017 09/09/2017 documented as of this encounter (statuses as of 01/06/2022) [facility] History of Past illness Narrative* Problem Noted Date Resolved Date Bipolar 1 disorder, mixed, severe 10/13/2017 10/21/2017 Dizzy 09/06/2017 09/09/2017 documented as of this encounter (statuses as of 07/27/2022) [facility] History of Past illness Narrative* Problem Noted Date Resolved Date Bipolar 1 disorder, mixed, severe 10/13/2017 10/21/2017 Dizzy 09/06/2017 09/09/2017 documented as of this encounter (statuses as of 08/20/2022) [facility] History of Past illness Narrative* Problem Noted Date Resolved Date Bipolar 1 disorder, mixed, severe 10/13/2017 10/21/2017 Dizzy 09/06/2017 09/09/2017 documented as of this encounter (statuses as of 09/06/2022) [facility] History of Past illness Narrative* Problem Noted Date Resolved Date Bipolar 1 disorder, mixed, severe 10/13/2017 10/21/2017 Dizzy 09/06/2017 09/09/2017 documented as of this encounter (statuses as of 09/14/2022) [facility] History of Past illness Narrative* Problem Noted Date Resolved Date Bipolar 1 disorder, mixed, severe 10/13/2017 10/21/2017 Dizzy 09/06/2017 09/09/2017 documented as of this encounter (statuses as of 11/04/2022) [facility] History of Past illness Narrative* Problem Noted Date Resolved Date Bipolar 1 disorder, mixed, severe 10/13/2017 10/21/2017 Dizzy 09/06/2017 09/09/2017 documented as of this encounter (statuses as of 11/20/2022) [facility] History of Past illness Narrative* Problem Noted Date Resolved Date Bipolar 1 disorder, mixed, severe 10/13/2017 10/21/2017 Dizzy 09/06/2017 09/09/2017 documented as of this encounter (statuses as of 12/01/2022) [facility] History of Past illness Narrative* Problem Noted Date Diagnosed Date Resolved Date Bipolar 1 disorder, mixed, severe 10/13/2017 10/21/2017 Dizzy 09/06/2017 09/09/2017 documented as of this encounter (statuses as of 12/01/2023) [facility] note* Diagnosis Encounter for long-term (current) use of high-risk medication Encounter for long-term (current) use of other medications documented in this encounter [facility] Work Phone: Evaluation note* Diagnosis Hyponatremia with decreased serum osmolality Hyposmolality and/or hyponatremia documented in this encounter [facility] Work Phone: Evaluation note* Diagnosis Hypothyroidism, unspecified type- Primary [facility] Diagnosis Hypothyroidism, unspecified type- Primary Vitamin D deficiency Unspecified vitamin D deficiency [facility]* Diagnosis Essential hypertension Unspecified essential hypertension documented in this encounter [facility] Work Phone: Evaluation note* Diagnosis Essential hypertension Unspecified essential hypertension Arthralgia, unspecified joint documented in this encounter [facility] Work Phone: [facility] note* Diagnosis Hypothyroidism, unspecified type documented in this encounter [facility] note* Diagnosis Hypothyroidism, unspecified type documented in this encounter [facility] note* Diagnosis Hypothyroidism, unspecified type Hyperparathyroidism , secondary, non-renal (HCC) Secondary hyperparathyroidism, non-renal documented in this encounter [facility] note* Diagnosis Hypothyroidism, unspecified type Hyperparathyroidism , secondary, non-renal (HCC) Secondary hyperparathyroidism, non-renal documented in this encounter [facility] note* Diagnosis Urge incontinence of urine- Primary Urge incontinence Urinary retention Unspecified retention of urine Incontinence of feces, unspecified fecal incontinence type documented in this encounter [facility] note* Diagnosis Urinary tract infection without hematuria, site unspecified Renal insufficiency Unspecified disorder of kidney and ureter Altered mental status, unspecified altered mental status type Chronic schizoaffective disorder (HCC) Schizoaffective disorder, chronic condition Urinary tract infection without hematuria, site unspecified documented in this encounter [facility] note* Diagnosis Hypothyroidism, unspecified- Primary documented in this encounter [facility] note* Diagnosis Chronic schizoaffective disorder (HCC) Schizoaffective disorder, chronic condition documented in this encounter [facility] note* Diagnosis Chronic schizoaffective disorder (HCC) Schizoaffective disorder, chronic condition documented in this encounter [facility] note* Diagnosis HTN (hypertension), benign- Primary Essential hypertension, benign Chronic renal disease, stage IV (HCC) Chronic kidney disease, Stage IV (severe) Chronic kidney disease, stage 3b (HCC) Morbid obesity with BMI of 45.0-49.9, adult (HCC) Screening mammogram for breast cancer Hyponatremia Hyposmolality and/or hyponatremia documented in this encounter [facility] note* Diagnosis Stage 3b chronic kidney disease (HCC)- Primary Urge incontinence of urine Urge incontinence documented in this encounter [facility] note* Diagnosis Stage 3b chronic kidney disease (HCC) documented in this encounter [facility] note* Diagnosis Transient alteration of awareness- Primary documented in this encounter [facility] note* Diagnosis Shortness of breath- Primary documented in this encounter [facility] note* Diagnosis Hypothyroidism, unspecified type Hyperparathyroidism , secondary, non-renal (HCC) Secondary hyperparathyroidism, non-renal [facility]* Diagnosis Urinary retention Unspecified retention of urine [facility]* Diagnosis Anemia in stage 4 chronic kidney disease (HCC) ([facility])- Primary documented in this encounter [facility] note* Diagnosis Acute cystitis without hematuria- Primary Acute cystitis without hematuria Altered mental status, unspecified altered mental status type Hyponatremia Hyposmolality and/or hyponatremia Morbid obesity with BMI of 45.0-49.9, adult ([facility]) documented in this encounter [facility] note* Diagnosis Hyperparathyroidism, unspecified ([facility])- Primary Hyperparathyroidism, unspecified Vitamin D deficiency, unspecified Iron deficiency Disorders of iron metabolism Chronic kidney disease, unspecified Nephrogenic diabetes insipidus ([facility]) Nephrogenic diabetes insipidus Proteinuria, unspecified documented in this encounter [facility] note* Diagnosis Contusion of right ankle, initial encounter- Primary documented [facility]* Diagnosis Peripheral edema Edema Failure to thrive in adult Adult failure to thrive Hypervolemia, unspecified hypervolemia type Chronic kidney disease, unspecified CKD stage Anemia, unspecified type Chronic schizoaffective disorder ([facility]) Schizoaffective disorder, chronic condition Hypervolemia, unspecified hypervolemia type documented [facility]* Diagnosis Psychogenic polydipsia- Primary Psychic factors associated with diseases classified elsewhere Anemia in stage 4 chronic kidney disease (HCC) (HCC) Chronic schizoaffective disorder ([facility]) Schizoaffective disorder, chronic condition Morbid obesity with BMI of 45.0-49.9, adult ([facility]) HTN (hypertension), benign Essential hypertension, benign Mixed hyperlipidemia Acquired hypothyroidism Unspecified hypothyroidism Screening mammogram for breast cancer Vision abnormalities Unspecified visual loss documented [facility]* Diagnosis Urinary retention- Primary Unspecified retention of urine Fall, initial encounter Pain of right hip documented [facility]* Diagnosis Weakness- Primary Other malaise and fatigue Head injury, initial encounter Fall, initial encounter Hypervolemia, unspecified hypervolemia type Chronic kidney disease, unspecified CKD stage Anemia due to chronic kidney disease, unspecified CKD stage Medication side effect Hyponatremia Hyposmolality and/or hyponatremia documented [facility] this [facility]* Diagnosis Candidal intertrigo- Primary Candidiasis of skin and nails Acute cystitis with hematuria Difficulty demonstrating health literacy Medication side effects present, subsequent encounter [facility] Diagnosis Nondisplaced fracture of shaft of fifth metacarpal bone, left hand, initial encounter for closed fracture- Primary [facility] Diagnosis Acute pain of left knee- Primary [facility]* Diagnosis Other chronic pain- Primary [facility]* Diagnosis Fall, initial encounter- Primary Fall, initial encounter Acute pain of left knee Pressure injury of left thigh, stage 3 (HCC) Chronic bilateral low back pain with bilateral sciatica [facility]* Diagnosis Fall, initial encounter- Primary Contusion of left elbow, initial encounter Contusion of left knee, initial encounter [facility] noteNo assessment information availableWNationwide Children's Hospital Work Phone: Evaluation note* Diagnosis Hyponatremia- Primary Hyposmolality and/or hyponatremia Hyponatremia Hyposmolality and/or hyponatremia Weakness Other malaise and fatigue Impaired mobility and ADLs [facility] Attachments The following attachments cannot be sent through Care Everywhere. * [facility] ([place] Attachments The following attachments cannot be sent through Care Everywhere. * Splint Care ED (Faroese) documented in this [facility] Discharge instructions* Attachments The following attachments cannot be sent through Care Everywhere. * Knee Pain Discharge Instructions (Faroese) documented in this [facility] Discharge instructions* Attachments The following attachments cannot be sent through Care Everywhere. * Acute Pain Discharge Instructions, Adult (Faroese) documented in this [facility] for referral (narrative)No reason for referral information availableWNationwide Children's Hospital Work Phone: Summary Purpose Family History No [...] Documents on File Type Date Recorded 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 Expl anation Advance Directives and Living Will Power of Commonwealth Attorney Latest Code Status on File Code Status Date Activated Date Inactivated Comments Full Code 05/19/2018 7:41 PM 06/02/2018 8:24 PM Full Code 02/15/2018 1:20 AM 02/22/2018 6:44 PM Full Code 02/12/2018 5:53 AM 02/15/2018 12:52 AM Full Code 10/06/2017 3:56 AM 10/12/2017 4:43 PM Full Code 06/11/2017 5:09 AM 06/15/2017 7:28 PM Documents on File Type Date Recorded 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 Expl anation ACP-Advance Directive ACP-Power of Commonwealth Attorney Documents on File Type Date Recorded 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 Expl anation Advance Directive(s) 09/06/2017 2:44 [...] Documents on File Type Date Recorded 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 Expl 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 DNR (Do Not Resuscitate) 10/08/2024 12:00 PM Date Activated Date Inactivated Comments 10/03/2024 1:45 PM 10/06/2024 6:27 PM Date Activated Date Inactivated Comments 08/03/2024 10:25 PM 08/10/2024 3:34 PM Date Activated Date Inactivated Comments 06/28/2024 6:59 PM 07/04/2024 7:57 PM Date Activated Date Inactivated Comments 03/17/2023 4:21 AM 03/23/2023 7:41 PM Documents on File Type Date Recorded 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 DATE CREATED AUTHOR AUTHOR'S ORGANIZ ATION 12/25/2021 [facility] DATE CREATED AUTHOR AUTHOR'S ORGANIZ ATION 05/15/2022 [facility] DATE CREATED AUTHOR AUTHOR'S ORGANIZ ATION 12/02/2023 [facility] DATE CREATED AUTHOR AUTHOR'S ORGANIZ ATION 05/29/2025 [facility] [facility] DATE CREATED AUTHOR AUTHOR'S ORGANIZ ATION 06/15/2025 [facility] Care Teams (unrecognized sec tion and content) Manager Fire Relationship Specialty Start Date End Date Edith Pierce MD PCP - General Family Medicine 03/20/15 Manager Fire Relationship Specialty Start Date End Date Edith Pierce MD PCP - General Family Medicine 03/20/15 Manager Fire Relationship Specialty Start Date End Date Edith Pierce MD PCP - General Family Medicine 03/20/15 Manager Fire Relationship Specialty Start Date End Date Edith Pierce [address] [place], [place] [id number] PCP - General Family Practice 02/19/16 Saurabh Esposito MD Physician Endocrinology 04/30/16 Ewelina Pruett [address] [place] [address] Physician Nephrology 04/30/16 Nick Green MD [address] [address] Physician Urology 04/30/16 Dario Verduzco MD Psychiatry 04/01/17 Manager Fire Relationship Specialty Start Date End Date Edith Pierce [address] [place] [address] PCP - General Family Practice 02/19/16 Ewelina Pruett [address] [place] [id number] Physician Nephrology 04/30/16 Nick Green MD [address] [address] Physician Urology 04/30/16 Dario Verduzco MD Psychiatry 04/01/17 Shania Cho MD [address] [facility] [address] [place] [address] Endocrinology 01/06/22 Manager Fire Relationship Specialty Start Date End Date Edith Pierce MD PCP - General Family Medicine 03/20/15 Manager Fire Relationship Specialty Start Date End Date Edith Pierce MD PCP - General Family Medicine 03/20/15 Manager Fire Relationship Specialty Start Date End Date Edith Pierce MD PCP - General Family Medicine 03/20/15 Manager Fire Relationship Specialty Start Date End Date Edith Pierce MD PCP - General Family Medicine 03/20/15 Manager Fire Relationship Specialty Start Date End Date Edith Pierce MD [address] [place], [place] [address] PCP - General Family Medicine 02/19/16 [place] [id number] Physician Nephrology 04/30/16 Nick Green MD [address] [address] Physician Urology 04/30/16 Dario Verduzco MD [address] [address] Psychiatry 04/01/17 Shania Cho MD [address] [facility] [address] [place] [address] Endocrinology 01/06/22 Manager Fire Relationship Specialty Start Date End Date Edith Pierce MD [address] [place] [address] PCP - General Family Medicine 02/19/16 Ewelina Pruett [address] [place] [address] Physician Nephrology 04/30/16 Nick Green MD [address] [address] Physician Urology 04/30/16 Dario Verduzco MD [address] [address] Psychiatry 04/01/17 Shania Cho MD 1945 [facility] [address] [place] [address] Endocrinology 01/06/22 Manager Fire Relationship Specialty Start Date End Date Edith Pierce MD [address] [place] [address] PCP - General Family Medicine 02/19/16 Ewelina Pruett [address] [place] [address] Physician Nephrology 04/30/16 Nick Green MD [address] [address] Physician Urology 04/30/16 Dario Verduzco MD [address] [address] Psychiatry 04/01/17 Shania Cho MD 1945 [facility] [address] [place] [phone] Endocrinology 01/06/22 Manager Fire Relationship Specialty Start Date End Date Edith Pierce MD [address] [place] [address] PCP - General Family Medicine 02/19/16 Ewelina Pruett [address] [place] [address] Physician Nephrology 04/30/16 Nick Green MD [address] [address] Physician Urology 04/30/16 Dario Verduzco MD [address] [address] Psychiatry 04/01/17 Shania Cho MD 1945 [facility] [address] [place] [address] Endocrinology 01/06/22 Manager Fire Relationship Specialty Start Date End Date Edith Pierce MD [address] [place] [address] PCP - General Family Medicine 02/19/16 Ewelina Pruett [address] [place] [address] Physician Nephrology 04/30/16 Nick Green MD [address] [address] Physician Urology 04/30/16 Dario Verduzco MD [address] [address] Psychiatry 04/01/17 Shania Cho MD 1945 [facility] [address] [place] [phone] Endocrinology 01/06/22 Manager Fire Relationship Specialty Start Date End Date Edith Pierce MD [address] [place] [address] PCP - General Family Medicine 02/19/16 Ewelina Pruett [address] [place] [phone] Physician Nephrology 04/30/16 Nick Green MD [address] [address] Physician Urology 04/30/16 Dario Verduzco MD [address] [address] Psychiatry 04/01/17 Shania Cho MD [address] [phone] Endocrinology 01/06/22 Manager Fire Relationship Specialty Start Date End Date Edith Pierce MD [address] [place] [address] PCP - General 01/13/19 Manager Fire Relationship Specialty Start Date End Date Edith Pierce MD [address] [place] [address] PCP - General 01/13/19 Manager Fire Relationship Specialty Start Date End Date Edith Pierce MD [address] [place] [address] PCP - General 01/13/19 Manager Fire Relationship Specialty Start Date End Date Edith Pierce MD [address] [place] [address] PCP - General 01/13/19 Manager Fire Relationship Specialty Start Date End Date Edith Pierce MD [address] [place] [address] PCP - General 01/13/19 Manager Fire Relationship Specialty Start Date End Date Edith Pierce MD [address] [place] [address] PCP - General 01/13/19 Manager Fire Relationship Specialty Start Date End Date Edith Pierce MD [address] [place] [address] PCP - General 01/13/19 Manager Fire Relationship Specialty Start Date End Date Edith Pierce MD [address] [place] [address] PCP - General 01/13/19 Manager Fire Relationship Specialty Start Date End Date Edith Pierce MD [address] [place] [address] PCP - General 01/13/19 Manager Fire Relationship Specialty Start Date End Date Edith Pierce MD [address] [place] [address] PCP - General 01/13/19 Manager Fire Relationship Specialty Start Date End Date Edith Pierce MD [address] [place] [address] [address] [place] [address] PCP - General 01/13/19 Manager Fire Relationship Specialty Start Date End Date Edith Pierce MD [address] [place] [address] [address] [place] [address] PCP - General 01/13/19 Nick Green MD [address] [place] [address] Surgeon Urology 06/22/23 Manager Fire Relationship Specialty Start Date End Date Edith Pierce MD [address] [place] [address] PCP - General 01/13/19 Nick Green MD [address] [place] [address] Surgeon Urology 06/22/23 Manager Fire Relationship Specialty Start Date End Date Edith Pierce MD [address] [place] [address] PCP - General 01/13/19 Nick Green MD [address] [place] [address] Surgeon Urology 06/22/23 Manager Fire Relationship Specialty Start Date End Date Edith Pierce MD [address] [place] [address] PCP - General 01/13/19 Nick Green MD [address] [place] [address] Surgeon Urology 06/22/23 Manager Fire Relationship Specialty Start Date End Date Edith Pierce MD [address] [place] [address] PCP - General 01/13/19 Nick Green MD [address] [place] [address] Surgeon Urology 06/22/23 Manager Fire Relationship Specialty Start Date End Date Edith Pierce MD [address] [place] [address] [address] [place] [address] PCP - General 01/13/19 Nick Green MD [address] [place] [address] Surgeon Urology 06/22/23 Manager Fire Relationship Specialty Start Date End Date Edith Pierce MD [address] [place] [address] [address] [place] [address] PCP - General 01/13/19 Nick Green MD [address] [place] [address] [address] [place] [address] Surgeon Urology 06/22/23 Manager Fire Relationship Specialty Start Date End Date Edith Pierce MD [address] [place] [address] [address] [place] [address] PCP - General 01/13/19 Nick Green MD [address] [place] [address] Surgeon Urology 06/22/23 Manager Fire Relationship Specialty Start Date End Date Edith Pierce MD [address] [place] [address] [address] [place] [address] PCP - General 01/13/19 Nick Green MD [address] [place] [address] Surgeon Urology 06/22/23 Manager Fire Relationship Specialty Start Date End Date Edith Pierce MD [address] [place] [address] PCP - General 01/13/19 Nick Green MD [address] [place] [address] Surgeon Urology 06/22/23 Manager Fire Relationship Specialty Start Date End Date Edith Pierce MD [address] [place] [address] PCP - General 01/13/19 Nick Green MD [address] [place] [address] Surgeon Urology 06/22/23 Manager Fire Relationship Specialty Start Date End Date Edith Pierce MD [address] [place] [address] [place] [address] PCP - General Family Medicine 02/19/16 Ewelina Pruett [address] [place] [phone] Physician Nephrology 04/30/16 Nick Green MD [address] [place] [address] Physician Urology 04/30/16 Dario Verduzco MD [address] [place] [address] Psychiatry 04/01/17 Shania Cho MD 194 [facility] [address] [place] [phone] Endocrinology 01/06/22 Manager Fire Relationship Specialty Start Date End Date Edith Pierce MD [address] [place] [address] PCP - General 01/13/19 Nick Green MD [address] [place] [address] Surgeon Urology 06/22/23 Manager Fire Relationship Specialty Start Date End Date Edith Pierce MD [address] [place] [address] PCP - General 01/13/19 Nick Green MD [address] [place] [address] Surgeon Urology 06/22/23 Manager Fire Relationship Specialty Start Date End Date Edith Pierce MD [address] [place] [address] PCP - General 01/13/19 Nick Green MD [address] [place] [address] Surgeon Urology 06/22/23 Manager Fire Relationship Specialty Start Date End Date Edith Pierce MD [address] [place] [address] PCP - General 01/13/19 Nick Green MD [address] [place] [address] Surgeon Urology 06/22/23 Manager Fire Relationship Specialty Start Date End Date Edith Pierce MD [address] [place] [address] PCP - General 01/13/19 Nick Green MD [address] [place] [address] Surgeon Urology 06/22/23 Familia Jeronimo MD [address] [facility] [address] [place] [address] Consulting Physician Hematology and Oncology 06/14/24 Manager Fire Relationship Specialty Start Date End Date Edith Pierce MD [address] [place] [address] PCP - General 01/13/19 Nick Green MD [address] [place] [address] Surgeon Urology 06/22/23 Familia Jeronimo MD [address] [facility] [address] [place] [address] Consulting Physician Hematology and Oncology 06/14/24 Manager Fire Relationship Specialty Start Date End Date Edith Pierce MD [address] [place] [address] PCP - General 01/13/19 Nick Green MD [address] [place] [address] Surgeon Urology 06/22/23 Familia Jeronimo MD [address] [facility] [address] [place] [address] Consulting Physician Hematology and Oncology 06/14/24 Manager Fire Relationship Specialty Start Date End Date Edith Pierce MD [address] [facility] [address] [place] [address] PCP - General 01/13/19 Nick Green MD [address] [facility] [address] [place] [address] Surgeon Urology 06/22/23 Familia Jeronimo MD [address] [facility] [address] [place] [address] Consulting Physician Hematology and Oncology 06/14/24 Manager Fire Relationship Specialty Start Date End Date Edith Pierce MD [address] [place] [address] PCP - General 01/13/19 Manager Fire Relationship Specialty Start Date End Date Edith Pierce MD [address] [place] [address] PCP - General 01/13/19 Manager Fire Relationship Specialty Start Date End Date Edith Pierce MD [address] [facility] [address] [place] [address] PCP - General 01/13/19 Nick Green MD [address] [place] [address] Surgeon Urology 06/22/23 Familia Jeronimo MD [address] [place] [address] Consulting Physician Hematology and Oncology 06/14/24 Manager Fire Relationship Specialty Start Date End Date Edith Pierce MD [address] [place] [address] PCP - General 01/13/19 Nick Green MD [address] [place] [address] Surgeon Urology 06/22/23 Familia Jeronimo MD [address] [place] [address] Consulting Physician Hematology and Oncology 06/14/24 Manager Fire Relationship Specialty Start Date End Date Edith Pierce MD [address] [place] [address] PCP - General 01/13/19 Nick Green MD [address] [place] [address] Surgeon Urology 06/22/23 Familia Jeronimo MD [address] [place] [address] Consulting Physician Hematology and Oncology 06/14/24 Manager Fire Relationship Specialty Start Date End Date Edith Pierce MD [address] [place] [address] PCP - General 01/13/19 Nick Green MD [address] [place] [address] Surgeon Urology 06/22/23 Famliia Jeronimo MD [address] [place] [address] Consulting Physician Hematology and Oncology 06/14/24 Katarina De Souza, IDALIA Registered Nurse [employer] Manager 08/13/24 Manager Fire Relationship Specialty Start Date End Date Edith Pierce MD [address] [place] [address] PCP - General 01/13/19 Nick Green MD [address] [place] [address] Surgeon Urology 06/22/23 Familia Jeronimo MD [address] [place] [address] Consulting Physician Hematology and Oncology 06/14/24 Manager Fire Relationship Specialty Start Date End Date Edith Pierce MD [address] [place] [address] PCP - General 01/13/19 Nick Green MD [address] [place] [address] Surgeon Urology 06/22/23 Familia Jeronimo MD [address] [place] [address] Consulting Physician Hematology and Oncology 06/14/24 Manager Fire Relationship Specialty Start Date End Date Edith Pierce MD [address] [place] [address] PCP - General 01/13/19 Nick Green MD [address] [place] [address] Surgeon Urology 06/22/23 Familia Jeronimo MD [address] [place] [address] Consulting Physician Hematology and Oncology 06/14/24 Manager Fire Relationship Specialty Start Date End Date Edith Pierce MD [address] [place] [address] [address] [place] [address] PCP - General 01/13/19 Nick Green MD [address] [place] [address] Surgeon Urology 06/22/23 Familia Jeronimo MD [address] [place] [address] Consulting Physician Hematology and Oncology 06/14/24 Manager Fire Relationship Specialty Start Date End Date Edith Pierce MD [address] [place] [address] PCP - General 01/13/19 Nick Green MD [address] [place] [address] Surgeon Urology 06/22/23 Familia Jeronimo MD [address] [place] [address] Consulting Physician Hematology and Oncology 06/14/24 Manager Fire Relationship Specialty Start Date End Date Edith Pierce MD [address] [place] [address] PCP - General 01/13/19 Nick Green MD [address] [place] [address] Surgeon Urology 06/22/23 Familia Jeronimo MD [address] [place] [address] Consulting Physician Hematology and Oncology 06/14/24 Manager Fire Relationship Specialty Start Date End Date Edith Pierce MD [address] [place] [address] PCP - General 01/13/19 Nick Green MD [address] [place] [address] Surgeon Urology 06/22/23 Familia Jeronimo MD [address] [facility] [address] [place] [address] Consulting Physician Hematology and Oncology 06/14/24 Manager Fire Relationship Specialty Start Date End Date Edith Pierce MD [address] [place] [address] PCP - General 01/13/19 Nick Green MD [address] [place] [address] Surgeon Urology 06/22/23 Familia Jeronimo MD [address] [place] [address] Consulting Physician Hematology and Oncology 06/14/24 Manager Fire Relationship Specialty Start Date End Date Edith Pierce MD [address] [place] [address] PCP - General 01/13/19 Nick Green MD [address] [place] [address] Surgeon Urology 06/22/23 Familia Jeronimo MD [address] [place] [address] Consulting Physician Hematology and Oncology 06/14/24 Manager Fire Relationship Specialty Start Date End Date Edith Pierce MD [address] [place] [address] PCP - General 01/13/19 Nick Green MD [address] [place] [address] Surgeon Urology 06/22/23 Familia Jeronimo MD [address] [place] [address] Consulting Physician Hematology and Oncology 06/14/24 Manager Fire Relationship Specialty Start Date End Date Edith Pierce MD [address] [place] [address] PCP - General 01/13/19 Nick Green MD [address] [place] [address] Surgeon Urology 06/22/23 Familia Jeronimo MD [address] [facility] [address] [place] [address] Consulting Physician Hematology and Oncology 06/14/24 Manager Fire Relationship Specialty Start Date End Date Edith Pierce MD [address] [place] [address] PCP - General 01/13/19 Nick Green MD [address] [place] [address] [address] [place] [address] Surgeon Urology 06/22/23 Familia Jeronimo MD [address] [facility] [address] [place] [address] Consulting Physician Hematology and Oncology 06/14/24 Manager Fire Relationship Specialty Start Date End Date Edith Pierce MD [address] [place] [address] PCP - General 01/13/19 Nick Green MD [address] [place] [address] [address] [place] [address] Surgeon Urology 06/22/23 Familia Jeronimo MD [address] [facility] [address] [place] [address] Consulting Physician Hematology and Oncology 06/14/24 Team [...] Status: Active Member Role/Relationship Status Dates Mary Johnstonchristina REDDY Attending Provider Active Star t: February 04, 2025 Mary Carlota BARRY Referring Provider Active Star t: February 04, 2025 Team Status: Active Member Role/Relationship Status Dates Mary REDDY Attending Provider Active Star t: February 08, 2025 Team Status: Inactive Member Role/Relationship Status Dates Mary Johnstonhneder REDDY Attending Provider Active Star t: 2025 End: 2025 Team Status: Active Member Role/Relationship Status Dates Mary REDDY Attending Provider Active Star t: February 18, 2025 Mary REDDY Referring Provider Active Star t: February 18, 2025 Team Status: Active Member Role/Relationship Status Dates Mary Carlota BARRY Attending Provider Active Star t: February 25, 2025 Manager Fire Relationship Specialty Start Date End Date Edith Pierce MD [address] [place] [address] PCP - General 01/13/19 Nick Green MD [address] [place] [address] [address] [place] [address] Surgeon Urology 06/22/23 Familia Jeronimo MD [address] [facility] [address] [place] [address] Consulting Physician Hematology and Oncology 06/14/24 Manager Fire Relationship Specialty Start Date End Date Edith Pierce MD [address] [facility] [address] [place] [address] PCP - General 01/13/19 Nick Green MD [address] [facility] [address] [place] [address] Surgeon Urology 06/22/23 Familia Jeronimo MD [address] [place] [address] Consulting Physician Hematology and Oncology 06/14/24 Madan Wagner MD [address] [place] [phone] Nephrology 05/03/25 Source Comments (unrecognize d section and content) In the event this informatio n is protected by the Federal Confidentiality of Alcohol and Drug Abuse Patient Records regulations: The Federal rules restrict any use of the information to criminally investigate or prosecute any alcohol or drug abuse patient.[facility] the event this information is protected by the Federal Confidentiality of Alcohol and Drug Abuse Patient Records regulations: The Federal rules restrict any use of the information to criminally investigate or prosecute any alcohol or drug abuse patient.[facility] the event this information is protected by the Federal Confidentiality of Alcohol and Drug Abuse Patient Records regulations: The Federal rules restrict any use of the information to criminally investigate or prosecute any alcohol or drug abuse patient.[facility] the event this information is protected by the Federal Confidentiality of Alcohol and Drug Abuse Patient Records regulations: The Federal rules restrict any use of the information to criminally investigate or prosecute any alcohol or drug abuse patient.[facility] the event this information is protected by the Federal Confidentiality of Alcohol and Drug Abuse Patient Records regulations: The Federal rules restrict any use of the information to criminally investigate or prosecute any alcohol or drug abuse patient.[facility] the event this information is protected by the Federal Confidentiality of Alcohol and Drug Abuse Patient Records regulations: The Federal rules restrict any use of the information to criminally investigate or prosecute any alcohol or drug abuse patient.[facility] the event this information is protected by the Federal Confidentiality of Alcohol and Drug Abuse Patient Records regulations: The Federal rules restrict any use of the information to criminally investigate or prosecute any alcohol or drug abuse patient.[facility] the event this information is protected by the Federal Confidentiality of Alcohol and Drug Abuse Patient Records regulations: The Federal rules restrict any use of the information to criminally investigate or prosecute any alcohol or drug abuse patient.[facility] the event this information is protected by the Federal Confidentiality of Alcohol and Drug Abuse Patient Records regulations: The Federal rules restrict any use of the information to criminally investigate or prosecute any alcohol or drug abuse patient.[facility] the event this information is protected by the Federal Confidentiality of Alcohol and Drug Abuse Patient Records regulations: The Federal rules restrict any use of the information to criminally investigate or prosecute any alcohol or drug abuse patient.[facility] Reason for Visit (unrecogniz ed section [...] status, unspecified altered mental status type Procedures [id number] tract infection [id number] insufficiency Ana Sierra MD [address] [place] [address] [facility] [address] [place] [phone] Referral ID Status Reason Start Date Expiration Date Visits Re quested Visits Authorized [id number] 1 Reason Onset Date Comments Med [...] r? Specialty Diagnoses / Procedures Referred By Contac t Referred To Contact Hematology and Oncology Diagnoses anemia Procedures CA OFFICE/OUTPATIENT NEW HIGH MDM 60 MINUTES Carlota Phillips [address] [facility], [address], [place] [address] Phone: tel: fax: Familia Jeronimo MD [address] [facility] [address] [place] [address] Phone: tel: fax: Referral ID Status Reason Start Date Expiration Date V isits Requested Visits Authorized [id number] Pending Review 05/31/2024 05/31/2025 1 1 Reason Comments Weakness, Gen Specialty Diagnoses / Procedures Referred By Contac t Referred To Contact Diagnoses Acute cystitis without hematuria Altered mental status, unspecified altered mental status type Procedures . Estephania Teran MD [address] [place] [address] Phone: tel: fax: [facility] Medical Surgical Unit M[address] [place] [address] Phone: tel: Referral ID Status Reason Start Date Expiration Date Visits Re quested Visits Authorized [id number] 1 1 Reason Comments Joint Pain Specialty Diagnoses / Procedures Referred By Contac t Referred To Contact Diagnoses Peripheral edema Failure to thrive in adult Fluid overload Hypervolemia, unspecified hypervolemia type Anemia, unspecified type Chronic kidney disease, unspecified CKD stage Procedures . Mariann Byrnes MD [address] [place] [address] Phone: tel: fax: [facility] Cardiac Progressive Care Unit PCU [address] [place] [address] Phone: tel: Referral ID Status Reason Start Date Expiration Date Visits Re quested Visits Authorized [id number] 1 1 Reason Onset Date Comments Appointment 08/23/2024 Reason Comments Hospital Follow-up [facility] Reason Comments Fall Reason Onset Date Comments Orders 11/07/2024 Reason Comments Fall Head Injury Reason Onset Date Comments Other 12/12/2024 [facility] Reason Comments Groin Pain Reason Onset Date Comments Other 12/25/2024 [facility]- [facility] with [facility] Reason Comments [...] home. Specialty Diagnoses / Procedures Referred By Nehemias cason Referred To Contact Diagnoses Fall, initial encounter Acute pain of left knee Procedures . Lissett Gonzalez MD [address] [place] [address] Phone: tel: fax: [facility] Respiratory Unit [address] [place] [address] Phone: tel: Referral ID Status Reason Start Date Expiration Date Visits Re quested Visits Authorized [id number] 1 1 Reason Comments Fall Pt from assisted riki ing, slid off the edge of her couch. Pt reports left knee pain. Staff reports she had a fall earlier today. Reason Comments Weakness, Gen Per EMS "she lives i n assisted living and is unable to take care of herself, she said she wants to go to [facility] which is a [facility]." Fall EMS was called for a lift assist, she slid from her chair to the floor. Specialty Diagnoses / Procedures Referred By Nehemias cason Referred To Contact Diagnoses Hyponatremia Procedures .. Clara Wyatt DO [address] [place] [address] Phone: tel: fax: [facility] EMERGENCY DEPT [address] [place] [address] Phone: tel: fax: Referral ID Status Reason Start Date Expiration Date Visits Re quested Visits Authorized [id number] 1 1 Reason Onset Date Comments Appointment Request 03/25/2025 [facility] up Reason Onset Date Comments Cancelled Appointment 05/28/2025 Scheduled Active and Recently Administ ered Medications (unrecognized section and content) Medication Order 03/21/2023 03/22/2023 03/23/2023 amLODIPine (Norvasc) tablet 10 mg (CANCELED) 10 mg, Oral, Daily, First dose (after last modification) on Tue03/23/23 at 0900 0829 (Given - Provider: PALU OSBORNE) amLODIPine (Norvasc) tablet 5 mg (CANCELED) [...] Weekly, First dose (after last modification) on Tue03/20/23 at 1645, Verified by kbg on 03/20/23 [...] Lama RN) 0824 (Given - Provider: PAUL OSBORNE)135 (Given - Provider: PAUL OSBORNE)195 (Given - Provider: Santa Lama RN) 0831 (Given - Provider: PAUL OSBORNE)131 (Given - Provider: PAUL OSBORNE) DULoxetine (Cymbalta) [...] at 1400 1354 (Given - Provider: PAUL OSBORNE)1952 (Given - Provider: Santa Lama RN) 0830 (Given - Provider: PAUL OSBORNE)1314 (Given - Provider: PAUL OSBORNE) lamoTRIgine (LaMICtal) tablet 100 mg 100 mg, Oral, Nightly, First dose (after last modification) on Kayli 03/17/23 at 2099 2007 (Given - Provider: Santa Lama, IDALIA) 1953 (Given - Provider: Santa Lama RN) levothyroxine (Synthroid, Levoxyl) tablet 175 mcg 175 mcg, Oral, Daily, First dose on Kayli 03/17/23 at 0700, Tube feeding (TF) interaction, obtain physician order to manage, recommend holding TF for 30 minutes before and after dose. 0433 (Given - Provider: Santa Lama RN) 0524 (Given - Provider: Santa Lama, IDALIA) 0531 (Given - Provider: Santa Lama RN) metoprolol tartrate (Lopressor) tablet 100 mg 100 mg, Oral, 2 times daily, First dose on Kayli 03/17/23 at 0900, Hold for HR < 60 08 (Given - Provider: Afua Suárez RN)2008 (Given - Provider: Santa Lama RN) 0822 (Not Given - Provider: PAUL OSBORNE - Reason: Order parameters not met)1953 (Given - Provider: Santa Lama RN) 0830 (Given - Provider: PAUL OSBORNE) pantoprazole (ProtoNix) EC tablet 40 mg 40 mg, Oral, Daily before breakfast, First dose on Kayli 03/17/23 at 0700, Substituted for omeprazole (Prilosec). Do not crush, chew, or split. 0434 (Given - Provider: Santa Lama RN) 0525 (Given - Provider: Santa Lama RN) 0531 (Given - Provider: Santa Lama RN) risperiDONE (RisperDAL) tablet 3 mg 3 mg, Oral, Nightly, First dose on Kayli 03/17/23 at 2099 2007 (Given - Provider: Santa Lama, IDALIA) 1951 (Given - Provider: Santa Lama RN) senna-docusate sodium (Senokot-S) 8.6-50 MG tablet 2 tablet 2 tablet, Oral, 2 times daily, First dose on Kayli 03/17/23 at 1045 0800 (Given - Provider: Afua Suárez RN)2099 (Not Given - Provider: Santa Lama RN - Reason: Patient/family refused) 08 (Given - Provider: PAUL OSBORNE)2099 (Not Given - Provider: Santa aLma RN - Reason: Other) 08 (Given - Provider: PAUL OSBORNE) tamsulosin (Flomax) [...] (See Alternative - Provider: Santa Lama RN) 0524 (See Alternative - Provider: Santa Lama RN)1957 (See Alternative - Provider: Santa Lama RN) 104 (See Alternative - Provider: PAUL OSBORNE) acetaminophen (Tylenol) tablet 650 mg(Linked Group 1) 650 mg, Oral, Every 6 hours PRN, mild pain (1-3), fever, For temp greater than 100.4 F (38 C), Starting on Kayli 03/17/23 at 0419, Maximum dose of acetaminophen is 4000 mg from all sources in 24 hours. 1207 (Given - Provider: Afua Suárez, IDALIA)2007 (Given - Provider: Santa Lama, IDALIA) 0524 (Given - Provider: Santa Lama, IDALIA)1958 (Given - Provider: Santa Lama RN) 1045 (Given - Provider: PAUL OSBORNE) clonazePAM (KlonoPIN) tablet 0.25 mg 0.25 mg, Oral, 3 times daily PRN, anxiety, Starting on Kayli 03/17/23 at 1641 1207 (Given - Provider: Afua Suárez RN)2007 (Given - Provider: Santa Lama RN) 0524 (Given - Provider: Santa Lama RN)1634 (Given [...] 5 mg, Oral, Daily, First dose on Kayli 06/28/24 at 1900 0851 (Given - Provider: Ashli Pop RN) 1005 (Given - Provider: Dinesh Clark) 0852 (Given - Provider: Justine Valentine LPN) buprenorphine (Butrans) 5 MCG/HR 2 patch 2 patch, TransDERmal, Administer over 168 Hours, Once, On Kayli 06/28/24 [...] 60 mg, Oral, Daily, First dose on Tue06/28/24 at 1900, Do not crush or chew. 0851 (Given - Provider: Ashli Pop RN) 1005 (Given - Provider: Dinesh Clark) 0851 (Given - Provider: Justine Valentine LPN) furosemide (Lasix) tablet 20 mg (CANCELED) 20 mg, Oral, Daily, First dose on Tue06/28/24 at 1900 0851 (Given - Provider: Ashli Pop RN) heparin injection 5,000 Units 5,000 Units, SubCUTAneous, Every 12 hours scheduled (2 times per day), First dose on Tue06/28/24 at 2100 0851 (Given - Provider: Ashli Pop RN)195 (Given - Provider: Holli Shafer RN) 1006 (Given - Provider: Dinesh Clark)2104 (Given - Provider: Holli Shafer RN) 0853 (Given - Provider: Justine Valentine LPN) hydrALAZINE (Apresoline) tablet 50 mg 50 mg, Oral, 3 times daily, First dose on Tue06/28/24 at 2100 0851 (Given - Provider: Ashli Pop RN)1322 (Given - Provider: Meg Wiggins RN)195 (Given - Provider: Holil Shafer RN) 1005 (Given - Provider: Dinesh Clark)1457 (Given - Provider: Dinesh Clark)210 (Given - Provider: Holli Shafer RN) 0852 [...] administration. 0913 (New Bag - Provider: Steven Fonteont RN)0933 (Due: Stopped - Provider: Steven Fontenot RN) lamoTRIgine (LaMICtal) tablet 200 mg 200 mg, Oral, Nightly, First dose on Kayli 06/28/24 at 2100 1956 (Given - Provider: Holli [...] Nightly, First dose on Tue06/28/24 at 2100 1957 (Given - Provider: Holli Shafer RN) 2104 (Given - Provider: Holli Shafer RN) PRN Medication Order 07/02/2024 07/03/2024 07/04/2024 acetaminophen (Tylenol) suppository 650 mg(Linked Group 1) 650 mg, Rectal, Every 6 hours PRN, mild pain (1-3), fever, For temp greater than 100.4 F (38 C), Starting on Tue06/28/24 at 1858, Administer if oral route cannot [...] RN) 0458 (Given - Provider: Holli Shafer RN)2104 (Given - Provider: Holli Shafer RN) clonazePAM (KlonoPIN) tablet 0.5 mg 0.5 mg, Oral, 2 times daily PRN, anxiety, Starting on Kayli 06/28/24 at 1856, Indications: schizoaffectvie disorder 0856 (Given - Provider: Ashli Pop RN)1956 (Given - Provider: Holli Shafer RN) 105 (Given - Provider: Yajaira Arora RN)2103 (Given - Provider: Holli Shafer RN) 09 (Given - Provider: Justine Valentine LPN) ondansetron [...] C), Starting on Kayli 06/28/24 at 1858, Maximum dose of acetaminophen [...] RN)2001 (Given - Provider: Radha Chavez RN) 0917 (Given - Provider: Genny Pitts RN)1412 (Given - Provider: Genny Pitts RN)2037 (Given [...] 0830 (New Bag - Provider: Nusrat Castellon RN)0900 (Stopped - Provider: Nusrat Castellon RN) cholecalciferol [...] order) 0917 (Given - Provider: Genny Pitts RN)1412 (Given - Provider: Genny Pitts RN)2040 (Given - Provider: Afua Morales RN) 0855 (Given - Provider: Jarrell Steiner LPN)1200 (Canceled Entry - Provider: Automatic Discharge Provider - Comment: Automatically canceled at discontinue of medication order) DULoxetine (Cymbalta) DR capsule 60 mg 60 mg, Oral, Daily, First dose on 08/04/24 at 0900, Do not [...] RN)2002 (Given - Provider: Radha Chavez RN) 09 (Given - Provider: Genny Pitts RN)1412 (Given - Provider: Genny Pitts RN)2038 (Given - Provider: Afua Morales RN) 0854 (Given - Provider: Jarrell Steiner LPN)1400 (Canceled Entry - Provider: Automatic Discharge Provider - Comment: Automatically canceled at discontinue of medication order) lamoTRIgine (LaMICtal) tablet 200 mg 200 mg, Oral, Nightly, First dose on Tue08/03/24 at 2232002 (Given - Provider: Radha Chavez RN) 2038 (Given - Provider: Afua Morales RN) levothyroxine (Synthroid, Levoxyl) tablet 125 mcg 125 mcg, Oral, Daily, First dose (after last modification) on Tue08/06/24 at 0600, Tube feeding (TF) interaction, obtain physician order to manage, recommend holding TF for 30 minutes before and after dose. 0411 (Given - Provider: Afua Morales RN) 0627 (Given - Provider: Radha Chavez RN) 0451 (Given - Provider: Afua Morales RN) metoprolol tartrate (Lopressor) tablet 100 mg 100 mg, Oral, 2 times daily, First dose on Tue08/03/24 at 2230 0829 (Given - Provider: Nusrat Castellon RN)2002 (Given - Provider: Radha Chavez RN) 09 (Given - Provider: Genny Pitts RN)2038 (Given - Provider: Afua Morales RN) 0854 (Given - Provider: Jarrell Steiner LPN) pantoprazole (ProtoNix) EC tablet 40 mg 40 mg, Oral, Daily before breakfast, First dose on 08/04/24 at 0600, Substituted for omeprazole (Prilosec). Do not crush, chew, or split. 0411 (Given - Provider: Afua Morales RN) 0627 (Given - Provider: Radha Chavez RN) 0451 (Given - Provider: Afua Moarles RN) risperiDONE (RisperDAL) tablet 6 mg 6 mg, Oral, Nightly, First dose on Tue08/03/24 at 2230, Indications: Mixed Bipolar Affective Disorder 2002 (Given - Provider: Radha Chavez RN) 2038 (Given - Provider: Afua Morales RN) rosuvastatin (Crestor) tablet 10 mg 10 mg, Oral, Daily, First dose on 08/04/24 at 0900 0828 (Given - Provider: Nursat Castellon RN) 0918 (Given - Provider: Genny [...] 0.4 mg, Oral, Daily, First dose on 08/04/24 at 0900, Do not crush, chew, or split. 0829 (Given - Provider: Nusrat Castellon RN) 0918 (Given - Provider: Genny Pitts RN) 0854 (Given - Provider: Jarrell Steiner LPN) traZODone (Desyrel) tablet 200 mg 200 mg, Oral, Nightly, First dose on Tue08/03/24 at 2230 2002 (Given - Provider: Radha Chavez RN) 2038 (Given - Provider: Afua Morales RN) PRN Medication Order 08/08/2024 08/09/2024 08/10/2024 clonazePAM (KlonoPIN) tablet 0.5 mg 0.5 mg, Oral, 2 times daily PRN, anxiety, Starting on Tue08/03/24 at 2225, Indications: schizoaffectvie disorder 0835 (Given - Provider: Nusrat Castellon RN)2001 (Given - Provider: Radha Chavez RN) 2037 (Given - Provider: Afua Morales RN) 105 (Given - Provider: Jarrell Steiner LPN) guaiFENesin (Robitussin) 100 MG/5ML liquid 200 mg 200 mg, Oral, Every 4 hours PRN, cough, Starting on 08/06/24 at 2058 2002 (Given - Provider: Radha Chavez RN) 2042 (Given - Provider: Afua Morales RN) 011 (Given - Provider: Afua Morales RN) HYDROcodone-acetaminophen ([place]) 5-325 MG per tablet 1 tablet 1 tablet, Oral, Every 6 hours PRN, moderate pain (4-6), severe pain (7-10), Starting on 08/04/24 at 1014, Maximum dose of acetaminophen is 4000 mg from all sources in 24 hours. 0155 (Given - Provider: Afua Morales RN)0828 (Given - Provider: Nusrat Castellon RN)2002 (Given - Provider: Radha Chavez RN) 011 (Given - Provider: Afua Morales RN) naloxone (Narcan) injection 0.4 mg 0.4 mg, IntraVENous, Every 5 min PRN, opioid reversal, respiratory depression, Starting on Tue08/03/24 at 2306, +++ For RR <10, pinpoint pupils, over sedation for opioid reversal - MUST notify clinical nurse occupational medicine provider immediately after first dose, may give [...] manually unheld 0828 (Given - Provider: Nusrat Castellon RN) 0633 (Given - Provider: Radha Chavez RN) 0853 (Held by provider - Provider: Diamante [...] 6 hours PRN, nausea, vomiting, Starting on 08/03/24 at 2225, 1st Line. Give IV if [...] 0423 (New Bag - Prov ider: Vy Yan RN)0523 (Stopped - Provider: Valentino Gan RN) Scheduled Medication Order 11/13/2024 11/14/2024 11/15/2024 furosemide (Lasix) injection 40 mg (COMPLETED) 40 mg, IntraVENous, Once, On Kayli 11/15/24 at 0635, For 1 dose 0651 (Given - Provid er: Lorraine Castellon RN) sodium chloride 0.9 % bolus 500 [...] mg from all sources in 24 hours. 0554 (Given - Provid er: Maryanne Up RN) [...] Scheduled Medication Order 12/27/2024 12/28/2024 12/29/2024 HYDROcodone-acetaminophen ([place]) 5-325 MG per tablet 1 tablet (COMPLETED) [...] at 1315, Do not crush or chew. 0915 (Given - Provider: Jorge Lawrence RN) 0829 (Given - Provider: Jorge Lawrence RN) 0900 (Given - Provider: Jorge Lawrence RN) ergocalciferol (Vitamin D2) capsule 1,250 mcg 1,250 mcg, Oral, Weekly, First dose on Tue01/01/25 at 0900 0900 (Given - Provider: Jorge Lawrence, IDALIA) ferrous sulfate tablet 325 mg 325 mg, Oral, Daily with breakfast, First dose on Tue01/01/25 at 0900 0915 (Given - Provider: Jorge Lawrence RN) 0829 (Given - Provider: Jorge Lawrence RN) 0900 (Given - Provider: Jorge Lawrence, IDALIA) heparin injection 5,000 Units 5,000 Units, SubCUTAneous, Every 12 hours scheduled (2 times per day), First dose on Tue12/31/24 at 2100 0915 (Not Given - Provider: Jorge Lawrence RN - Reason: Patient/family refused)2048 (Given - Provider: Kelvin Kincaid RN) 08 (Given - Provider: Jorge Lawrence RN)2044 (Not Given - Provider: Luz Elena Mckinnon LPN - Reason: Patient/family refused) 0900 (Given - Provider: Jorge Lawrence RN) lamoTRIgine (LaMICtal) tablet 150 mg 150 mg, Oral, Nightly, First dose on Tue12/30/24 at 2100 2046 (Given - Provider: Kelvin Kincaid RN) [...] RN)2046 (Given - Provider: Kelvin Kincaid RN) 0830 (Given - Provider: Jorge Lawrence RN)2043 (Given [...] Daily, First dose (after last modification) on Tue01/10/25 at 1630, 1st line for treatment of constipation - give scheduled if no bowel movement in past 24 hours. 0914 (Given - Provider: Jorge Lawrence RN) 0829 (Given - Provider: Jorge Lawrence RN) 0900 (Given - Provider: Jorge Lawrence RN) risperiDONE [...] Jorge Lawrence RN - Reason: Medication not available)2051 (Not Given - Provider: Kelvin Kincaid RN - Reason: Patient/family refused) 0608 (Given - Provider: Kelvin Kincaid RN)1524 (Given - Provider: Jorge Lawrence RN)2045 [...] RN)1634 (Given - Provider: Jorge Lawrence RN) 0457 (Given - Provider: Luz Elena Mckinnon LPN) melatonin tablet 3 mg 3 mg, Oral, Nightly PRN, sleep, Starting on Tue01/01/25 at 2122 2048 (Given - Provider: Kelvin Kincaid RN) 2044 (Given - Provider: Luz Elena Mckinnon LPN) naloxone (Narcan) injection 0.4 mg 0.4 mg, IntraVENous, Every 5 min PRN, opioid reversal, respiratory depression, Starting on Tue12/31/24 at 1310, +++ For RR <10, pinpoint pupils, over sedation for opioid reversal - MUST notify clinical nurse occupational medicine provider immediately after first dose, may give IM or SQ if no IV access +++ ondansetron (Zofran) injection 4 mg(Linked Group 1) 4 mg, IntraVENous, Every 6 hours PRN, nausea, vomiting, Starting on Tue12/30/24 at 1819, 1st Line. Give IV if patient is unable to take orally. If inadequate response within 60 minutes, proceed to next-line agent or contact provider if no further options ordered. ondansetron ODT (Zofran-ODT) disintegrating tablet 4 mg(Linked Group 1) 4 mg, Oral, Every 8 hours PRN, nausea, vomiting, Starting on Tue12/30/24 at 1819, 1st Line. If inadequate response [...] RN)1523 (See Alternative - Provider: Jorge Lawrence RN)2044 (See Alternative - Provider: Luz Elena Mckinnon LPN) 0457 (See Alternative - Provider: Luz Elena Mckinnon LPN)1037 (See Alternative - Provider: Jorge Lawrence RN)1446 (See Alternative - Provider: Daily Nolan, RN) oxyCODONE (Roxicodone) immediate release tablet 5 mg(Linked Group 2) 5 mg, Oral, Every 4 hours PRN, severe pain (7-10), Starting on Tue01/08/25 at 1101 0510 (Given - Provider: Lea Clarke RN)0916 (Given - Provider: Jorge Lawrence RN)1331 (Given - Provider: Jorge Lawrence RN)1820 (Given - Provider: Jorge Lawrence, RN)2351 (Given - Provider: Kelvin Kincaid, IDALIA) 0554 (Given - Provider: Kelvin Kincaid RN)1030 (Given - Provider: Jorge Lawrence RN)1523 (Given - Provider: Jorge Lawrence RN)2045 (Given - Provider: Luz Elena Mckinnon LPN) 0457 (Given - Provider: Luz Elena Mckinnon LPN)1037 (Given - Provider: Jorge Lawrence RN)1446 (Given - Provider: Daily Nolan, IDALIA) sodium chloride 0.9 % infusion 5-250 mL/hr, [...] IV line use, Starting on Tue12/30/24 at 1819, For Line Patency: Peripheral IV = 5 [...] PRN, nausea, vomiting, Starting on Tue12/30/24 at 1819, 1st Line. If inadequate response within 60 minutes, proceed to next-line agent or contact provider if no further options ordered. Patient should allow tablet to dissolve on tongue. Do not remove from blister pack until just before administering. Or ondansetron (Zofran) injection 4 mgJump to med 4 mg, IntraVENous, Every 6 hours PRN, nausea, vomiting, Starting on Tue12/30/24 at 1819, 1st Line. Give IV if [...] or split. 0824 (Given - Provider: Christa Tello RN)1243 (Given - Provider: Christa Tello RN)1813 (Given - Provider: Christa Tello, RN) 0829 (Given - Provider: Pastora Garner RN)1210 (Given - Provider: Pastora Garner RN)1740 (Given - Provider: Pastora Garner, IDALIA) 0832 (Given - Provider: Pastora Garner, IDALIA)1154 (Given - Provider: Pastora Garner, IDALIA) DULoxetine (Cymbalta) DR capsule 60 mg 60 mg, Oral, Daily, First dose on Tue03/07/25 at 0900, Do not crush or chew. 0811 (Given - Provider: Mason Morocho RN) 0830 (Given - Provider: Pastora Garner, IDALIA) 0832 (Given - Provider: Pastora Garner RN) lamoTRIgine (LaMICtal) tablet 150 mg 150 mg, Oral, Nightly, First dose on Tue03/07/25 at 2100 2145 (Given - Provider: Kitty Noguera, IDALIA) 2025 (Given - Provider: Kitty Noguera RN) levothyroxine (Synthroid, Levoxyl) tablet 125 mcg 125 mcg, Oral, Daily, First dose on Tue03/07/25 at 0840, Tube feeding (TF) interaction, obtain physician order to manage, recommend holding TF for 30 minutes before and after dose. 0811 (Given - Provider: Mason Morocho RN) 08 (Given - Provider: Pastora Garner RN) 08 (Given - Provider: Pastora Garner RN) metoprolol tartrate (Lopressor) tablet 75 mg 75 mg, Oral, 2 times daily, First dose (after last modification) on Tue03/13/25 at 2100 2200 (Not Given - Provider: Kitty Noguera RN - Reason: Other - Comment: pts HR is 53. provider notified, med held) 832 (Not Given - Provider: Pastora Garner RN - Reason: Other - Comment: Hold per MD)2026 (Given - Provider: Kitty Noguera RN) 831 (Not Given - Provider: Pastora Garner RN - Reason: Other - Comment: HR 50) risperiDONE (RisperDAL) tablet 3 mg 3 mg, Oral, Nightly, First dose on Tue03/07/25 at 2100, Indications: Mixed Bipolar Affective Disorder 2144 (Given - Provider: Kitty Noguera RN) 2023 (Given - Provider: Kitty Noguera RN) rosuvastatin (Crestor) tablet 10 mg 10 mg, Oral, Daily, First dose on Tue03/07/25 at 0900 08 (Given - Provider: Mason Morocho RN) 08 (Given - Provider: Pastora Garner RN) 0832 [...] mL/lumen 0812 (Given - Provider: Mason Morocho RN)2158 (Given - Provider: Kitty Noguera RN) 0833 (Given - Provider: Pastora Garner, IDALIA)2027 (Given - Provider: Kitty Noguera RN) 075 (Given - Provider: Pastora Garner RN) traZODone (Desyrel) tablet 100 mg 100 mg, Oral, Nightly, First dose on Tue03/08/25 at 2100 2145 (Given - Provider: Kitty oNguera RN) 2024 (Given - Provider: Kitty Noguera [...] at 0843 2216 (Given - Provider: Kitty Noguera RN) 2023 (Given - Provider: Kitty Noguera RN) melatonin tablet 6 mg 6 mg, Oral, [...] sedation for opioid reversal - MUST notify clinical nurse occupational medicine provider immediately after first dose, may give [...] Second line 2257 (Given - Provider: Kitty Noguera, IDALIA) sodium chloride 0.9 % infusion 5-250 mL/hr, IntraVENous, PRN, if patient receiving piggyback infusions and maintenance fluids are not ordered OR KVO fluids to protect IV site / prevent frequent line interruptions / long duration, Starting on Kayli 03/07/25 at 0836, For piggyback infusion, administer at [...] injury (resolved) - Apply ET mix. 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 Apply PRN Left Posterior thigh: Scar Tissue - Apply ET mix. 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 Apply PRN Linked Groups Order Group 1: [...] 8 hours PRN, nausea, vomiting, Starting on 03/07/25 at 0836, 1st Line. If inadequate [...] BE BASED ON THE PRIMARY CLINICAL RECORDS. [facility]. provides no warranty or guarantee of the accuracy or completeness of information in this document.
[2025-06-19 08:38] LABS: Hematocrit 27.1 % (37-47); Hemoglobin 9.0 g/dL (12.0-15.0); Mean Corp Hgb Conc 33.2 g/dL (32-36); Mean Corpuscular Volume 96.4 fL (81-99); Mean Platelet Vol. 9.0 fl (6.2-12.0); Platelet Count 329 K/mm3 (150-450); RBC Distribution Width CV 12.2 % (11.6-14.6); RBC Distribution Width SD 43.4 fl (35.1-43.9); Red Blood Count 2.81 M/mm3 (4.2-5.4); White Blood Count 7.8 K/mm3 (4.4-11.0)
[2025-06-19 08:56] LABS: AST(SGOT) 13 U/L (<=31); Alanine Aminotransfer ALT/SGPT < 5 U/L (<=34); Albumin, Serum 3.0 g/dL (3.5-5.0); Alkaline Phosphatase 65 U/L (35-104); Anion Gap 11 (5-15); BUN 18 mg/dL (4-19); BUN/Creat Ratio 7.2 RATIO (10-20); Calcium,Total 8.2 mg/dL (7.6-11.0); Carbon Dioxide 22.7 mmol/L (21.0-32.0); Chloride 87 mmol/L (98-108); Globulin 3.3 g/dL (2.2-4.2); Glucose 77 mg/dL (70-99); Potassium 4.2 mmol/L (3.3-5.1)
== END ==
LOC: OLS.ACW100 05:00
PROVIDERS: Visit Provider Family Medicine
DX: E87.1 Hypo-osmolality and hyponatremia (principal); R53.1 Weakness; R06.00 Dyspnea, unspecified; E87.70 Fluid overload, unspecified
CPT/HCPCS: 36415; 80053; 84443; 85027